=== PATIENT | female | born 1945 | race Caucasian/White ===

== ENCOUNTER → 2016-05-16 | Outpatient (CLI) | payer MEDICARE, OTHER ==
--- NOTE | 2016-05-16 16:16 | NM ---
EXAMINATION TYPE: NM parathyroid w/spect DATE OF EXAM: 05/16/2016 3:48 PM COMPARISON: CT chest August 26, 2013 HISTORY: Primary hyperparathyroidism TECHNIQUE: Following administration of 24.4 mCi Tc99m Sestamibi. Anterior projection images of the neck and ches t were obtained 15 minutes delayed images obtained post injection. SPECT images of the neck and ches t were obtained and reconstructed in three axes. FINDINGS: Thyroid tracer washout: There is decreased trapping of the radiopharmaceutical, delayed images show s ome questionable trapping towards the upper pole level of the right lobe of the gland. IMPRESSION: There may be underlying thyroiditis, thyroid atrophy, findings felt to be equivocal but unlikely to r epresent parathyroid adenoma
== END | disposition home or self-care (01) ==
LOC: RADNMMAIN 11:15
PROVIDERS: ATTEND Internal Medicine Endocrinology, Diabetes & Metabolism
DX: E21.0 Primary hyperparathyroidism (principal)
CPT/HCPCS: 78071; A9500

== ENCOUNTER → 2016-06-27 | Outpatient (CLI) | payer MEDICARE, OTHER ==
--- NOTE | 2016-06-27 11:15 | US ---
EXAMINATION TYPE: US kidneys/renal and bladder DATE OF EXAM: 06/27/2016 10:18 AM COMPARISON: CT and MRI on PACS CLINICAL HISTORY: E21.3 Hyperparathyroidsm. Small kidneys reported on CT here EXAM MEASUREMENTS: Right Kidney: 5.6 x 3.4 x 2.4 cm Left Kidney: 8.3 x 5.2 x 4.5 cm Post Void Residual Volume: 0 TECHNOLOGIST IMPRESSION: wnl Right Kidney: smaller than left kidney Left Kidney: small cortical cyst mid pole = 0.6 x 0.7 x 0.5cm Bladder: minimal mobile echogenic internal contents were noted which suggests debris Bilateral Jets seen: yes Normal Post Void Residual: yes as bladder fully emptied IMPRESSION: 1. Probable atrophy of the right kidney. 2. Simple appearing, 7 mm left renal cyst. 3. Some sludge within the bladder.
== END | disposition home or self-care (01) ==
LOC: RADUSWWP 09:13
PROVIDERS: ATTEND Internal Medicine Endocrinology, Diabetes & Metabolism
DX: E21.3 Hyperparathyroidism, unspecified (principal); N28.1 Cyst of kidney, acquired
CPT/HCPCS: 76770

== ENCOUNTER 2016-09-30 22:17 | Emergency (ER) | payer MEDICARE, OTHER ==
[2016-09-30 22:28] VITALS: BP 120/62; PULSE 90; RESP 18
[2016-09-30] MEDS ORDERED: diphenhydrAMINE 2% CREAM 28.4 GM TUBE TOPICAL STA (22:49)
[2016-09-30] MEDS ORDERED: TOPICAL SKIN ADHESIVE 1 EACH AMP TOPICAL ONE (22:51)
--- NOTE | 2016-09-30 22:52 | ED ---
Upper Extremity HPI - General Chief Complaint: Extremity Injury, Upper Stated Complaint: finger swelling/pain & scraped arm Time Seen by Provider: 09/30/16 22:37 Source: patient, RN notes reviewed Mode of arrival: ambulatory Limitations: no limitations - History of Present Illness Initial Comments: This is a 71 year old female with CC of left middle finger pain and a skin tear on right wrist. Patient reports she was working outside in her [employer]'s garden and got the abrasion and thinks there is a splinter in her finger. Patient reports her finger feels like it is on fire. Patient denies any fevers, chills, decreased range of motion of extremities, redness, swelling, or other injury. - Related Data Home Medications Medication Instructions Recorded Confirmed DULoxetine HCL [Cymbalta] 60 mg PO DAILY 09/17/13 09/30/16 Potassium Chloride ER [K-Dur 20] 40 meq PO BID 04/07/14 09/30/16 Ergocalciferol [Vitamin D2 50,000 unit PO QMONTH 09/05/14 09/30/16 (DRISDOL)] fentaNYL 100MCG/HR PATCH 1 patch TRANSDERM Q72H 04/10/15 09/30/16 [Duragesic 100Mcg/Hr Patch] Alendronate Sodium [Fosamax] 35 mg PO DAILY 11/06/15 09/30/16 Cyanocobalamin [Vitamin B-12 1,000 mcg SQ [id number] 11/06/15 09/30/16 Injection] Ferrous Sulfate [Feosol] 650 mg PO DAILY 11/06/15 09/30/16 Fluticasone Nasal [place] [Flonase 1 spr EA NOSTRIL BID 11/06/15 09/30/16 Nasal [place]] Furosemide [Lasix] 20 mg PO DAILY 11/06/15 09/30/16 HYDROcodone/APAP 5-325MG [[place] 1 tab PO TID PRN 11/06/15 09/30/16 5-325] Ipratropium [place] 0.06%Nasal 2 spray NASAL BID 11/06/15 09/30/16 [Atrovent Nasal] Levothyroxine Sodium [Synthroid] 100 mcg PO DAILY 11/06/15 09/30/16 Metolazone [Zaroxolyn] 2.5 mg PO DAILY 11/06/15 09/30/16 Mirtazapine [Remeron] 90 mg PO HS 11/06/15 09/30/16 Montelukast [Singulair] 10 mg PO DAILY 11/06/15 09/30/16 Multivitamins, Thera [Multivitamin 1 tab PO DAILY@1200 11/06/15 09/30/16 (formulary)] Polyethylene Glycol 3350 [Miralax] 17 gm PO DAILY PRN 11/06/15 09/30/16 SUMAtriptan SUCCINATE [Imitrex] 50 mg PO ONCE PRN 11/06/15 09/30/16 buPROPion HCL [Wellbutrin XL] 300 mg PO DAILY 11/06/15 09/30/16 busPIRone HCL 30 mg PO BID 11/06/15 09/30/16 cloNIDine 0.2 MG/24HR PATCH 1 patch TRANSDERM Q7D 09/30/16 09/30/16 [Catapres-TTS] Previous Rx's Medication Instructions Recorded Omeprazole [PriLOSEC] 20 mg PO AC-BRKFST #30 capsule. 03/17/14 Folic Acid 1 mg PO DAILY@1200 #1 tablet 04/18/14 Thiamine [Vitamin B-1] 100 mg PO DAILY@1200 #1 tablet 04/18/14 Allergies Allergy/AdvReac Type Severity Reaction Status Date / Time poliomyelitis vaccine, live Allergy Unknown Verified 09/30/16 22:54 oral Childhood [poliomyelitis vaccine,live] DUST Allergy Itching Uncoded 09/30/16 22:28 MOLDS Allergy Itching Uncoded 09/30/16 22:28 Review of Systems ROS Statement: Those systems with pertinent positive or pertinent negative responses have been documented in the HPI. ROS Other: All systems not noted in ROS Statement are negative. 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 USES CANE WHEN UP IN APT STATED FELL YESTERDAY ON KNEES(HAS SOME BRUISING NOTED). PT IS RETIRED ON [employer]. PT IS ABLE TO DRIVE A CAR. 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 Smoking Status: Never smoker Past Alcohol Use History: None Reported Past Drug Use History: None Reported - Past Family History Father Family Medical History: Cancer, Coronary Artery Disease (CAD) Additional Family Medical History / Comment(s): FATHER HAD BLADDER AND KIDNEY CANCER. FATHER HAD TB WHEN HE WAS A CHILD .FATHER AT AGE 87. Mother Family Medical History: Cancer Additional Family Medical History / Comment(s): MOTHER AT AGE 58 OF OVARIAN CANCER. General Exam - General Exam Comments Initial Comments: Well appearing 71 year old female. Limitations: no limitations General appearance: alert, in no apparent distress Head exam: Present: atraumatic, normocephalic, normal inspection Eye exam: Present: normal appearance, PERRL, EOMI. Absent: scleral icterus, conjunctival injection, periorbital swelling ENT exam: Present: normal exam, mucous membranes moist Neck exam: Present: normal inspection. Absent: tenderness, meningismus, lymphadenopathy Respiratory exam: Present: normal lung sounds bilaterally. Absent: respiratory distress, wheezes, rales, rhonchi, stridor Cardiovascular Exam: Present: regular rate, normal rhythm, normal heart sounds. Absent: systolic murmur, diastolic murmur, rubs, gallop, clicks GI/Abdominal exam: Present: soft, normal bowel sounds. Absent: distended, tenderness, guarding, rebound, rigid Extremities exam: Present: normal inspection, full ROM, normal capillary refill. Absent: tenderness, pedal edema, joint swelling, calf tenderness Back exam: Present: normal inspection Neurological exam: Present: alert, oriented X3, CN II-XII intact Psychiatric exam: Present: normal affect, normal mood Skin exam: Present: warm, dry, intact, normal color, other (2cm skin tear on right wrist. ). Absent: rash Course Vital Signs 09/30/16 22:25 Pulse Rate 90 Respiratory 18 Rate Blood Pressure 120/62 O2 Sat by Pulse 98 Oximetry Medical Decision Making - Medical Decision Making This is a 71 year old female with CC of left middle finger pain and a skin tear on right wrist. Patient reports she was working outside in her anabaptism's [employer] and got the abrasion and thinks there is a splinter in her finger. Patient reports her finger feels like it is on fire. Patient denies any fevers, chills, decreased range of motion of extremities, redness, swelling, or other injury. Patient skin tear was irrigated and closed with skin adhesive. PAtient finger has no laceration, redness, or swelling. Patient will be given benadryl cream over the finger. REturn parameters dsicussed. Disposition Clinical Impression: Tear of skin of right wrist, Splinter of finger without major open wound or infection Disposition: HOME SELF-CARE Condition: Good Instructions: Skin Adhesive Care (ED) Additional Instructions: Patient advised to take Motrin Tylenol for pain. Apply the Benadryl cream over the distal tip of the finger. advised to soak the finger ice. Monitor for any signs of infection including redness swelling and drainage. Patient needs to keep the skin tear clean. Monitor for any sign of infection and that as well. Referrals: Ale Eli MD [Primary Care Provider] - 1-2 days Time of Disposition: 22:50
--- NOTE | 2016-10-02 07:13 | CDI ---
Documentation Clarification OP Dear MAO Joyce: Please do addendum to ED report for HPI and physical exam. Thank you, Beckie Noonan Cloth Shearer If you have any question, Please contact coding coordinator at [phone] [facility]
== END 2016-09-30 23:09 | disposition home or self-care (01) ==
LOC: EC 22:17
DX: S61.511A Laceration without foreign body of right wrist, initial encounter (principal); S60.453A Superficial foreign body of left middle finger, initial encounter; J45.909 Unspecified asthma, uncomplicated; M19.90 Unspecified osteoarthritis, unspecified site; F41.0 Panic disorder [episodic paroxysmal anxiety]; F32.9 Major depressive disorder, single episode, unspecified; Z79.899 Other long term (current) drug therapy; Z88.7 Allergy status to serum and vaccine; Z91.048 Other nonmedicinal substance allergy status; X58.XXXA Exposure to other specified factors, initial encounter; Y92.89 Other specified places as the place of occurrence of the external cause
CPT/HCPCS: 12001; 99282

== ENCOUNTER 2017-05-31 08:58 | Emergency (ER) | payer MEDICARE, OTHER ==
--- NOTE | 2017-05-31 09:16 | ED ---
General Adult HPI - General Chief complaint: Recheck/Abnormal Lab/Rx Stated complaint: Leg Pain/Vomiting/Diarrhea Time Seen by Provider: 05/31/17 09:00 Source: patient, EMS Mode of arrival: EMS Limitations: no limitations - History of Present Illness Initial comments: This is a 72-year-old female who presents to the ED by EMS with withdrawal symptoms from [place] and Fentanyl patches. She is under the care of Dr. Eli and forgot to call for her refill before the weekend. The patient apologizes several times for coming to the ED, but she states she did not know how to handle her nausea, vomiting and diarrhea symptoms to get through the rest of the weekend. She demonstrates a history of compliance under Dr. Eli's care. - Related Data Home Medications Medication Instructions Recorded Confirmed DULoxetine HCL [Cymbalta] 60 mg PO DAILY 09/17/13 09/30/16 Potassium Chloride ER [K-Dur 20] 40 meq PO BID 04/07/14 09/30/16 Ergocalciferol [Vitamin D2 50,000 unit PO QMONTH 09/05/14 09/30/16 (DRISDOL)] fentaNYL 100MCG/HR PATCH 1 patch TRANSDERM Q72H 04/10/15 05/31/17 [Duragesic 100Mcg/Hr Patch] Alendronate Sodium [Fosamax] 35 mg PO DAILY 11/06/15 09/30/16 Cyanocobalamin [Vitamin B-12 1,000 mcg SQ [id number] 11/06/15 09/30/16 Injection] Ferrous Sulfate [Feosol] 650 mg PO DAILY 11/06/15 09/30/16 Fluticasone Nasal [place] [Flonase 1 spr EA NOSTRIL BID 11/06/15 09/30/16 Nasal [place]] Furosemide [Lasix] 20 mg PO DAILY 11/06/15 09/30/16 HYDROcodone/APAP 5-325MG [[place] 1 tab PO TID PRN 11/06/15 05/31/17 5-325] Ipratropium [place] 0.06%Nasal 2 spray NASAL BID 11/06/15 09/30/16 [Atrovent Nasal] Levothyroxine Sodium [Synthroid] 100 mcg PO DAILY 11/06/15 05/31/17 Metolazone [Zaroxolyn] 2.5 mg PO DAILY 11/06/15 09/30/16 Multivitamins, Thera [Multivitamin 1 tab PO DAILY@1200 11/06/15 09/30/16 (formulary)] Polyethylene Glycol 3350 [Miralax] 17 gm PO DAILY PRN 11/06/15 09/30/16 SUMAtriptan SUCCINATE [Imitrex] 50 mg PO ONCE PRN 11/06/15 09/30/16 buPROPion HCL [Wellbutrin XL] 300 mg PO DAILY 11/06/15 05/31/17 busPIRone HCL 30 mg PO BID 11/06/15 09/30/16 cloNIDine 0.2 MG/24HR PATCH 1 patch TRANSDERM Q7D 09/30/16 09/30/16 [Catapres-TTS] Albuterol Inhaler [Ventolin Hfa 1 - 2 puff INHALATION RT-Q6H PRN 05/31/17 Inhaler] Levocetirizine Dihydrochloride 5 mg PO HS 05/31/17 05/31/17 [Xyzal] Mirtazapine [Remeron ODT] 60 mg PO HS 05/31/17 05/31/17 Montelukast [Singulair] 10 mg PO DAILY 05/31/17 05/31/17 Previous Rx's Medication Instructions Recorded Omeprazole [PriLOSEC] 20 mg PO AC-BRKFST #30 capsule. 03/17/14 Folic Acid 1 mg PO DAILY@1200 #1 tablet 04/18/14 Thiamine [Vitamin B-1] 100 mg PO DAILY@1200 #1 tablet 04/18/14 Allergies Allergy/AdvReac Type Severity Reaction Status Date / Time poliomyelitis vaccine, live Allergy Unknown Verified 05/31/17 09:00 oral Childhood [poliomyelitis vaccine,live] DUST Allergy Itching Uncoded 05/31/17 09:00 MOLDS Allergy Itching Uncoded 05/31/17 09:00 Review of Systems ROS Statement: Those systems with pertinent positive or pertinent negative responses have been documented in the HPI. ROS Other: All systems not noted in ROS Statement are negative. 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 FATHER HAD TB WHEN HE WAS A CHILD .FATHER AT AGE 87. Mother Family Medical History: Cancer Additional Family Medical History / Comment(s): MOTHER AT AGE 58 OF OVARIAN CANCER. General Exam Limitations: no limitations General appearance: alert, anxious Head exam: Present: atraumatic, normocephalic, normal inspection Cardiovascular Exam: Present: tachycardia GI/Abdominal exam: Present: soft, normal bowel sounds. Absent: distended, tenderness, guarding, rebound, rigid Neurological exam: Present: alert, oriented X3, CN II-XII intact Psychiatric exam: Present: normal affect, normal mood, anxious Skin exam: Present: warm, dry, intact, normal color. Absent: rash Course Vital Signs 05/31/17 09:00 Temperature 97.1 F L Pulse Rate 114 H Respiratory 16 Rate Blood Pressure 141/79 O2 Sat by Pulse 99 Oximetry Medical Decision Making - Medical Decision Making This 72-year-old patient came in with opiate withdrawal symptoms. She was given zofran for her nausea. The patient was diagnosed clinically with opiate dependence. She was given the medications she was withdrawing from, Fentanyl and [place]. She was instructed to call Dr. Eli tomorrow and continue follow- up care with her. I did perform a maps on the patient which showed that the patient does fill prescriptions every 9 days and has not abused medications Disposition Clinical Impression: Opiate dependence, Nausea & vomiting, Drug withdrawal Disposition: HOME SELF-CARE Condition: Stable Instructions: Opioid Withdrawal (ED) Additional Instructions: Please return to the Emergency Department if experiencing new or worsening symptoms. Referrals: Ale Eli MD [Primary Care Provider] - 1-2 days Time of Disposition: 09:44
[2017-05-31] MEDS ORDERED: ONDANSETRON 4 MG/2 ML VIAL IVP STA (09:17)
[2017-05-31] MEDS ORDERED: MORPHINE SULFATE 4 MG/ML SYRINGE IVP STA (09:17)
[2017-05-31] MEDS ORDERED: ONDANSETRON 4 MG ODT STARTER PACK 2 TAB BTL PO STA (09:18)
[2017-05-31] MEDS ORDERED: HYDROcodone/APAP 5-325MG 1 EACH TAB PO STA (09:18)
[2017-05-31 10:16] VITALS: BP 116/70; PULSE 64; RESP 15; TEMP 97.7
== END 2017-05-31 10:19 | disposition home or self-care (01) ==
LOC: EC 08:58
DX: R11.2 Nausea with vomiting, unspecified (principal); F11.23 Opioid dependence with withdrawal; J45.909 Unspecified asthma, uncomplicated; G43.909 Migraine, unspecified, not intractable, without status migrainosus; F32.9 Major depressive disorder, single episode, unspecified; F41.0 Panic disorder [episodic paroxysmal anxiety]; Z86.73 Personal history of transient ischemic attack (TIA), and cerebral infarction without residual deficits; Z79.51 Long term (current) use of inhaled steroids; Z79.899 Other long term (current) drug therapy; Z88.7 Allergy status to serum and vaccine; Z91.09 Other allergy status, other than to drugs and biological substances
CPT/HCPCS: 99284; 96374; 96375; J2270; J2405; S0119

== ENCOUNTER 2017-12-07 16:17 | Emergency (ER) | payer MEDICARE, OTHER ==
[2017-12-07 17:08] VITALS: RESP 18
[2017-12-07 17:52] LABS: Appearance,Urine Clear (Clear); Bacteria,Urine Many /hpf; Bilirubin,Urine Negative (Negative); Blood,Urine Negative (Negative); Color,Urine Yellow; Glucose,Urine (UA) Negative (Negative); Ketones,Urine Negative (Negative); Leukocyte Esterase,Urine Large (Negative); Nitrite,Urine Negative (Negative); Protein,Urine Trace (Negative); RBC,Urine 6 /hpf (0-5); Specific Gravity,Urine 1.013 (1.001-1.035); Squamous Epithelial Cell,Urine <1 /hpf (0-4); Urobilinogen,Urine <2.0 mg/dL (<2.0)
[2017-12-07] MEDS ORDERED: ACETAMINOPHEN TAB 325 MG TAB PO STA (20:36)
[2017-12-07] MEDS ORDERED: ONDANSETRON ODT 4 MG TAB PO STA (20:36)
[2017-12-07] MEDS ORDERED: SULFAMETHOX-TMP 800-160MG 1 EACH TAB PO STA (20:36)
--- NOTE | 2017-12-07 20:44 | ED ---
General Adult HPI - General Chief complaint: Urogenital Stated complaint: UTI Time Seen by Provider: 12/07/17 20:28 Source: patient, RN notes reviewed Mode of arrival: ambulatory Limitations: no limitations - History of Present Illness Initial comments: Patient is a pleasant 72-year-old female presenting to the emergency department with complaints of dysuria. Symptoms have been present 2-3 days. Patient has had some chills and nausea. Patient has dysuria and urinary frequency. Patient has had some generalized achiness. No abdominal pain. No vomiting. Patient has had similar symptoms years ago associated with urinary tract infection. - Related Data Home Medications Medication Instructions Recorded Confirmed DULoxetine HCL [Cymbalta] 60 mg PO DAILY 09/17/13 12/07/17 Potassium Chloride ER [K-Dur 20] 40 meq PO BID 04/07/14 12/07/17 Ergocalciferol [Vitamin D2 50,000 unit PO QMONTH 09/05/14 12/07/17 (DRISDOL)] fentaNYL 100MCG/HR PATCH 1 patch TRANSDERM Q72H 04/10/15 12/07/17 [Duragesic 100Mcg/Hr Patch] Alendronate Sodium [Fosamax] 35 mg PO DAILY 11/06/15 12/07/17 Cyanocobalamin [Vitamin B-12 1,000 mcg SQ [id number] 11/06/15 12/07/17 Injection] Ferrous Sulfate [Feosol] 650 mg PO DAILY 11/06/15 12/07/17 Fluticasone Nasal [place] [Flonase 1 spr EA NOSTRIL BID 11/06/15 12/07/17 Nasal [place]] Furosemide [Lasix] 20 mg PO DAILY 11/06/15 12/07/17 HYDROcodone/APAP 5-325MG [[place] 1 tab PO TID PRN 11/06/15 12/07/17 5-325] Ipratropium [place] 0.06%Nasal 2 spray NASAL BID 11/06/15 12/07/17 [Atrovent Nasal] Levothyroxine Sodium [Synthroid] 100 mcg PO DAILY 11/06/15 12/07/17 Metolazone [Zaroxolyn] 2.5 mg PO DAILY 11/06/15 12/07/17 Multivitamins, Thera [Multivitamin 1 tab PO DAILY@1200 11/06/15 12/07/17 (formulary)] Polyethylene Glycol 3350 [Miralax] 17 gm PO DAILY PRN 11/06/15 12/07/17 SUMAtriptan SUCCINATE [Imitrex] 50 mg PO DAILY PRN 11/06/15 12/07/17 buPROPion HCL [Wellbutrin XL] 300 mg PO DAILY 11/06/15 12/07/17 busPIRone HCL 30 mg PO BID 11/06/15 12/07/17 cloNIDine 0.2 MG/24HR PATCH 1 patch TRANSDERM Q7D 09/30/16 12/07/17 [Catapres-TTS] Albuterol Inhaler [Ventolin Hfa 1 - 2 puff INHALATION RT-Q6H PRN 05/31/17 Inhaler] Levocetirizine Dihydrochloride 5 mg PO HS 05/31/17 12/07/17 [Xyzal] Mirtazapine [Remeron ODT] 60 mg PO HS 05/31/17 12/07/17 Montelukast [Singulair] 10 mg PO DAILY 05/31/17 12/07/17 Previous Rx's Medication Instructions Recorded Omeprazole [PriLOSEC] 20 mg PO AC-BRKFST #30 capsule. 03/17/14 Folic Acid 1 mg PO DAILY@1200 #1 tablet 04/18/14 Thiamine [Vitamin B-1] 100 mg PO DAILY@1200 #1 tablet 04/18/14 Sulfamethox-Tmp 800-160Mg [Bactrim 1 each PO Q12HR #20 tab 12/07/17 DS 800-160 mg] Allergies Allergy/AdvReac Type Severity Reaction Status Date / Time poliomyelitis vaccine, live Allergy Unknown Verified 12/07/17 20:29 oral Childhood [poliomyelitis vaccine,live] DUST Allergy Itching Uncoded 05/31/17 09:00 MOLDS Allergy Itching Uncoded 05/31/17 09:00 Review of Systems ROS Statement: Those systems with pertinent positive or pertinent negative responses have been documented in the HPI. ROS Other: All systems not noted in ROS Statement are negative. Constitutional: Reports: chills. Denies: fever Eyes: Denies: eye pain ENT: Denies: ear pain Respiratory: Denies: cough Cardiovascular: Denies: chest pain Endocrine: Denies: fatigue Gastrointestinal: Reports: nausea. Denies: abdominal pain, vomiting Genitourinary: Reports: urgency, dysuria, frequency Musculoskeletal: Denies: back pain Skin: Denies: rash Neurological: Denies: headache Past Medical History Past Medical History: Asthma, Deep Vein Thrombosis (DVT), GERD/Reflux Additional Past Medical History / Comment(s): OA IN NECK,BACK AND BILATERAL ARMS.stomach ulcers, edema,low calcium; migraine headaches, pancreatitis, constipation,tia,spinal stenosis(had sx ) History of Any Multi-Drug Resistant Organisms: None Reported Past Surgical History: Back Surgery, Bowel Resection Additional Past Surgical History / Comment(s): LOWER BACK SURGERY lamenectomy/ discetomy then had a revison of that sx. 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 FATHER HAD TB WHEN HE WAS A CHILD .FATHER AT AGE 87. Mother Family Medical History: Cancer Additional Family Medical History / Comment(s): MOTHER AT AGE 58 OF OVARIAN CANCER. General Exam Limitations: no limitations General appearance: alert, in no apparent distress Head exam: Present: atraumatic Eye exam: Present: normal appearance Neck exam: Present: normal inspection Respiratory exam: Present: normal lung sounds bilaterally Cardiovascular Exam: Present: regular rate, normal rhythm GI/Abdominal exam: Present: soft. Absent: distended, tenderness, guarding, rebound, rigid Extremities exam: Present: normal inspection Neurological exam: Present: alert Psychiatric exam: Present: normal affect, normal mood Skin exam: Present: normal color Course Vital Signs 12/07/17 17:07 Temperature 98.2 F Pulse Rate 93 Respiratory 18 Rate Blood Pressure 135/75 O2 Sat by Pulse 99 Oximetry Medical Decision Making - Medical Decision Making Patient offered further evaluation with blood work however refuses. Patient is comfortable with oral antibiotics and discharged. Patient is receptive to receiving a dose of Tylenol and antiemetic. - Lab Data Lab Results 12/07/17 Range/Units 17:06 Urine Color Yellow Urine Appearance Clear (Clear) Urine pH 6.0 (5.0-8.0) Ur Specific Upper Tract 1.013 (1.001-1.035) Urine Protein Trace H (Negative) Urine Glucose (UA) Negative (Negative) Urine Ketones Negative (Negative) Urine Blood Negative (Negative) Urine Nitrite Negative (Negative) Urine Bilirubin Negative (Negative) Urine Urobilinogen <2.0 (<2.0) mg/dL Ur Leukocyte Esterase Large H (Negative) Urine RBC 6 H (0-5) /hpf Urine WBC 122 H (0-5) /hpf Ur Squamous Epith Cells <1 (0-4) /hpf Urine Bacteria Many H (None) /hpf Disposition Clinical Impression: Urinary tract infection Disposition: HOME SELF-CARE Condition: Stable Instructions: Urinary Tract Infection in Women (ED) Additional Instructions: Please follow-up with primary care physician in the next couple days for recheck. Tylenol as needed for aches or fevers. Return for pain, fevers, not tolerating oral intake, worsening symptoms or other concerns. Prescriptions: Sulfamethox-Tmp 800-160Mg [Bactrim DS 800-160 mg] 1 each PO Q12HR #20 tab Is patient prescribed a controlled substance at d/c from ED?: No Referrals: Ale Eli MD [Primary Care Provider] - 1-2 days Time of Disposition: 20:44
[2017-12-07 20:54] VITALS: BP 153/79; PULSE 86; TEMP 98.3
== END 2017-12-07 20:54 | disposition home or self-care (01) ==
LOC: EC 16:17
DX: N39.0 Urinary tract infection, site not specified (principal); J45.909 Unspecified asthma, uncomplicated; K21.9 Gastro-esophageal reflux disease without esophagitis; F32.9 Major depressive disorder, single episode, unspecified; F41.0 Panic disorder [episodic paroxysmal anxiety]; Z86.718 Personal history of other venous thrombosis and embolism; Z79.51 Long term (current) use of inhaled steroids; Z79.891 Long term (current) use of opiate analgesic; Z79.899 Other long term (current) drug therapy; Z88.7 Allergy status to serum and vaccine; Z91.048 Other nonmedicinal substance allergy status
CPT/HCPCS: 81001; 87086; 99283

== ENCOUNTER 2019-04-01 12:27 | Inpatient (IN) | payer MEDICARE, OTHER ==
--- NOTE | 2019-04-01 13:22 | ED ---
SOB HPI - General Chief Complaint: Shortness of Breath Stated Complaint: Congested, Cough, SOB Time Seen by Provider: 04/01/19 12:56 Source: patient Mode of arrival: ambulatory Limitations: no limitations - History of Present Illness Initial Comments: patient is 74-year-old female with history of CKD and asthma is presenting to emergency Department with chief complaint of shortness of breath and cough. Patient reports initially she developed upper respiratory symptoms about 5 days ago and aren't his. She also had a nonproductive cough. Patient also reports that she started to have some dyspnea on exertion and now it is dyspnea at rest. Patient reports pleuritic right-sided chest pain. She reports the pain is exacerbated with full inspiration status is not heart pain were more related to the coughing. Patient denies any radiation of the pain. She denies any diaphoretic episodes, lightheadedness or dizziness. Denies night sweats fevers or chills.she reports a runny nose and occasional sore throat but denies otalgia.patient denies COPD or smoking. She does use albuterol 3 times a day. Patient is currently on Lasix. - Related Data Home Medications Medication Instructions Recorded Confirmed DULoxetine HCL [Cymbalta] 60 mg PO DAILY 09/17/13 12/07/17 Potassium Chloride ER [K-Dur 20] 40 meq PO BID 04/07/14 12/07/17 Ergocalciferol [Vitamin D2 50,000 unit PO QMONTH 09/05/14 12/07/17 (DRISDOL)] fentaNYL 100MCG/HR PATCH 1 patch TRANSDERM Q72H 04/10/15 12/07/17 [Duragesic 100Mcg/Hr Patch] Alendronate Sodium [Fosamax] 35 mg PO DAILY 11/06/15 12/07/17 Cyanocobalamin [Vitamin B-12 1,000 mcg SQ S24QVOT 11/06/15 12/07/17 Injection] Ferrous Sulfate [Feosol] 650 mg PO DAILY 11/06/15 12/07/17 Fluticasone Nasal [place] [Flonase 1 spr EA NOSTRIL BID 11/06/15 12/07/17 Nasal [place]] Furosemide [Lasix] 20 mg PO DAILY 11/06/15 12/07/17 HYDROcodone/APAP 5-325MG [[place] 1 tab PO TID PRN 11/06/15 12/07/17 5-325] Ipratropium [place] 0.06%Nasal 2 spray NASAL BID 11/06/15 12/07/17 [Atrovent Nasal] Levothyroxine Sodium [Synthroid] 100 mcg PO DAILY 11/06/15 12/07/17 Metolazone [Zaroxolyn] 2.5 mg PO DAILY 11/06/15 12/07/17 Multivitamins, Thera [Multivitamin 1 tab PO DAILY@1200 11/06/15 12/07/17 (formulary)] Polyethylene Glycol 3350 [Miralax] 17 gm PO DAILY PRN 11/06/15 12/07/17 SUMAtriptan SUCCINATE [Imitrex] 50 mg PO DAILY PRN 11/06/15 12/07/17 buPROPion HCL [Wellbutrin XL] 300 mg PO DAILY 11/06/15 12/07/17 busPIRone HCL 30 mg PO BID 11/06/15 12/07/17 cloNIDine 0.2 MG/24HR PATCH 1 patch TRANSDERM Q7D 09/30/16 12/07/17 [Catapres-TTS] Albuterol Inhaler [Ventolin Hfa 1 - 2 puff INHALATION RT-Q6H PRN 05/31/17 12/07/17 Inhaler] Levocetirizine Dihydrochloride 5 mg PO HS 05/31/17 12/07/17 [Xyzal] Mirtazapine [Remeron ODT] 60 mg PO HS 05/31/17 12/07/17 Montelukast [Singulair] 10 mg PO DAILY 05/31/17 12/07/17 Previous Rx's Medication Instructions Recorded Omeprazole [PriLOSEC] 20 mg PO AC-BRKFST #30 capsule. 03/17/14 Folic Acid 1 mg PO DAILY@1200 #1 tablet 04/18/14 Thiamine [Vitamin B-1] 100 mg PO DAILY@1200 #1 tablet 04/18/14 Sulfamethox-Tmp 800-160Mg [Bactrim 1 each PO Q12HR #20 tab 12/07/17 DS 800-160 mg] Allergies Allergy/AdvReac Type Severity Reaction Status Date / Time poliomyelitis vaccine, live Allergy Unknown Verified 12/07/17 20:29 oral Childhood [poliomyelitis vaccine,live] DUST Allergy Itching Uncoded 05/31/17 09:00 MOLDS Allergy Itching Uncoded 05/31/17 09:00 Review of Systems ROS Statement: Those systems with pertinent positive or pertinent negative responses have been documented in the HPI. ROS Other: All systems not noted in ROS Statement are negative. 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 FATHER HAD TB WHEN HE WAS A CHILD .FATHER AT AGE 87. Mother Family Medical History: Cancer Additional Family Medical History / Comment(s): MOTHER AT AGE 58 OF OVARIAN CANCER. General Exam Limitations: no limitations General appearance: alert, in no apparent distress Head exam: Present: atraumatic, normocephalic, normal inspection Eye exam: Present: normal appearance Pupils: Present: normal accommodation ENT exam: Present: normal exam, normal oropharynx, mucous membranes moist, TM's normal bilaterally, normal external ear exam Neck exam: Present: normal inspection, full ROM Respiratory exam: Present: wheezes (mild wheezing bilaterally), chest wall tenderness (right lower chest) Cardiovascular Exam: Present: normal rhythm, tachycardia, normal heart sounds Extremities exam: Present: normal inspection, full ROM Back exam: Present: normal inspection, full ROM Neurological exam: Present: alert, oriented X3 Psychiatric exam: Present: normal affect, normal mood Skin exam: Present: warm, dry, intact, normal color Course Vital Signs 04/01/19 04/01/19 04/01/19 12:47 12:48 13:00 Temperature 98.5 F Pulse Rate 128 H 118 H Respiratory 26 H 20 Rate Blood Pressure 163/104 147/89 O2 Sat by Pulse 97 96 99 Oximetry 04/01/19 04/01/19 04/01/19 14:15 14:24 14:37 Temperature Pulse Rate 112 H 116 H 120 H Respiratory Rate Blood Pressure 143/87 O2 Sat by Pulse 99 Oximetry Medical Decision Making - Medical Decision Making patient is a 74-year-old female with history of chronic kidney disease and asthma presenting to the emergency Department with a chief complaint of shortness of breath. patient initially began with an upper respiratory infection about 5 days ago and is gradually developed a nonproductive cough. She reports some lower right-sided chest pain that is pleuritic in nature. Patient denies n ight sweats fevers or chills. She does report some shortness of breath which initially started as dyspnea on exertion and is now at rest. EKG shows sinus tachycardia with no ST changes. It resembles most recent EKG. Chest x-ray shows right lower lobe pneumonia. this can be clinically correlated to the patient's lower right-sided chest pain. CBC has a white count of 15.4k. Patient has poor renal Function although this is her baseline. patient is given a DuoNeb treatment. Patient is on 2 L of oxygen. patient does report some improvement in symptoms although dyspnea still somewhat persistent.initial troponin is negative. D-dimer negative. Patient has bilateral lower extremity edema alth ough that is her baseline. Patient does take Lasix. Considering the patient's comorbidities, she will be admitted for further medical management. patient given a single dose of Rocephin. Case discussed with physician. Admitting physician is Dr. Desir. - Lab Data Result diagrams: 04/01/19 13:05 04/01/19 13:05 Lab Results 04/01/19 04/01/19 04/01/19 Range/Units 13:05 13:05 13:05 WBC 15.4 H (3.8-10.6) k/uL RBC 3.93 (3.80-5.40) m/uL Hgb 11.9 (11.4-16.0) gm/dL Hct 37.8 (34.0-46.0) % MCV 96.3 (80.0-100.0) fL MCH 30.4 (25.0-35.0) pg MCHC 31.5 (31.0-37.0) g/dL RDW 14.4 (11.5-15.5) % Plt Count 421 (150-450) k/uL Neutrophils % 82 % Lymphocytes % 10 % Monocytes % 5 % Eosinophils % 2 % Basophils % 0 % Neutrophils # 12.7 H (1.3-7.7) k/uL Lymphocytes # 1.5 (1.0-4.8) k/uL Monocytes # 0.8 (0-1.0) k/uL Eosinophils # 0.3 (0-0.7) k/uL Basophils # 0.0 (0-0.2) k/uL Sodium 141 (137-145) mmol/L Potassium 3.1 L (3.5-5.1) mmol/L Chloride 106 (98-107) mmol/L Carbon Dioxide 24 (22-30) mmol/L Anion Gap 11 mmol/L BUN 45 H (7-17) mg/dL Creatinine 1.75 H (0.52-1.04) mg/dL Est GFR (CKD-EPI)AfAm 33 (>60 ml/min/1.73 sqM) Est GFR (CKD-EPI)NonAf 29 (>60 ml/min/1.73 sqM) Glucose 80 (74-99) mg/dL Calcium 8.8 (8.4-10.2) mg/dL Total Bilirubin 0.6 (0.2-1.3) mg/dL AST 18 (14-36) U/L ALT 12 (4-34) U/L Alkaline Phosphatase 149 H (38-126) U/L Troponin I <0.012 (0.000-0.034) ng/mL Total Protein 5.3 L (6.3-8.2) g/dL Albumin 3.1 L (3.5-5.0) g/dL Disposition Clinical Impression: Pneumonia, Shortness of breath Disposition: ADMITTED IP TO THIS [facility] Condition: Stable Instructions (If sedation given, give patient instructions): Dyspnea (ED) Additional Instructions: Patient will be admitted Is patient prescribed a controlled substance at d/c from ED?: No Referrals: Ale Eli MD [Primary Care Provider] - 1-2 days Time of Disposition: 14:49
--- NOTE | 2019-04-01 13:44 | XR ---
EXAMINATION TYPE: XR chest 2V DATE OF EXAM: 04/01/2019 COMPARISON: Prior chest x-ray 09/05/2014 HISTORY: Difficulty breathing, shortness of breath and wheezing TECHNIQUE: Frontal and lateral views of the chest are obtained. FINDINGS: The interstitium appears prominently, patchy bilateral airspace disease is noted. No evide nt pneumothorax or pleural effusion. Heart size is stable. Retrocardiac density is consistent with hi atal hernia. IMPRESSION: Correlate for congestive heart failure, pneumonia. Follow-up is recommended.
[2019-04-01 13:57] LABS: Basophils % (A) 0 %; Eosinophils # (A) 0.3 k/uL (0-0.7); Eosinophils % (A) 2 %; HCT 37.8 % (34.0-46.0); HGB 11.9 gm/dL (11.4-16.0); Lymphocytes # (A) 1.5 k/uL (1.0-4.8); Lymphocytes % (A) 10 %; MCH 30.4 pg (25.0-35.0); MCHC 31.5 g/dL (31.0-37.0); MCV 96.3 fL (80.0-100.0); Monocytes # (A) 0.8 k/uL (0-1.0); Monocytes % (A) 5 %; Neutrophils # (A) 12.7 k/uL (1.3-7.7); Neutrophils % (A) 82 %; Platelet Count 421 k/uL (150-450); RBC 3.93 m/uL (3.80-5.40); RDW 14.4 % (11.5-15.5); WBC 15.4 k/uL (3.8-10.6)
[2019-04-01 14:05] LABS: Albumin 3.1 g/dL (3.5-5.0); Calcium 8.8 mg/dL (8.4-10.2); Potassium 3.1 mmol/L (3.5-5.1); Total Bilirubin 0.6 mg/dL (0.2-1.3); Total Protein 5.3 g/dL (6.3-8.2)
[2019-04-01] MEDS ORDERED: IPRATROPIUM-ALBUTEROL 3 ML NEB INHALATION STA (14:18)
[2019-04-01 14:27] LABS: INR 0.8 (<1.2); Partial Thromboplastin Time 34.4 sec (22.0-30.0); Prothrombin Time 9.2 sec (9.0-12.0)
[2019-04-01] MEDS ORDERED: PNEUMONIA PROTOCOL UTILIZED 1 EACH MISC PO PRN (14:49)
[2019-04-01 14:54] LABS: D-Dimer 1.07 mg/L FEU (<0.60)
[2019-04-01] MEDS: ALBUTEROL NEBULIZED 2.5 MG/3 ML INHALATION SCH ×2 (15:25→19:47)
--- NOTE | 2019-04-01 16:21 | NM ---
EXAMINATION TYPE: NM pul vent and perfuse DATE OF EXAM: 04/01/2019 COMPARISON: Chest x-ray same date HISTORY: Chest pain, difficulty breathing, cough and wheezing, abnormal chest x-ray TECHNIQUE: Utilizing inhalation of 68.3 mCi Tc 99m DTPA aerosol and intravenous injection of 4.89 mC i of Tc 99m MAA, ventilation and perfusion images are acquired post injection in multiple projections . FINDINGS: Several subsegmental matching defects are present, no ventilation/perfusion mismatches. IMPRESSION: Indeterminate for pulmonary embolus.
[2019-04-01] MEDS ORDERED: ALBUTEROL INHALER 60 PUFF/8 GM INHALER INHALATION PRN (18:23)
[2019-04-01] MEDS ORDERED: POLYETHYLENE GLYCOL 3350 17 GM POWD.PACK PO PRN (18:23)
[2019-04-01] MEDS: HYDROcodone/APAP 5-325MG 1 EACH TAB PO PRN (18:40)
[2019-04-01] MEDS: HYDROmorphone 0.5 MG/0.5 ML SYRINGE IVP PRN ×2 (18:41→23:49)
[2019-04-01] MEDS ORDERED: ERGOCALCIFEROL 50,000 UNIT CAP PO SCH (19:00)
[2019-04-01] MEDS ORDERED: POTASSIUM CHLORIDE ER 20 MEQ TAB.ER PO STA (19:05)
[2019-04-01] MEDS: busPIRone HCl 10 MG TAB PO SCH (20:39)
[2019-04-01] MEDS: ENOXAPARIN 40 MG/0.4 ML SYRINGE SQ SCH (20:40)
[2019-04-01] MEDS: FLUTICASONE 50MCG/SPRAY NASAL 16GM EA NOSTRIL SCH (20:40)
[2019-04-01] MEDS: LORATADINE 10 MG TAB PO SCH (20:40)
[2019-04-01] MEDS ORDERED: ENOXAPARIN 40 MG/0.4 ML SYRINGE SQ SCH (21:00)
[2019-04-01] MEDS ORDERED: MIRTAZAPINE 15 MG TAB PO SCH (21:00)
[2019-04-02] MEDS: HYDROcodone/APAP 5-325MG 1 EACH TAB PO PRN ×3 (03:18→20:51)
[2019-04-02 05:19] LABS: Basophils % (A) 0 %; Eosinophils # (A) 0.3 k/uL (0-0.7); Eosinophils % (A) 2 %; HCT 34.9 % (34.0-46.0); HGB 11.1 gm/dL (11.4-16.0); Lymphocytes # (A) 1.6 k/uL (1.0-4.8); Lymphocytes % (A) 14 %; MCH 30.8 pg (25.0-35.0); MCHC 31.9 g/dL (31.0-37.0); MCV 96.8 fL (80.0-100.0); Mean Platelet Volume 6.9; Monocytes # (A) 0.8 k/uL (0-1.0); Monocytes % (A) 7 %; Neutrophils # (A) 8.8 k/uL (1.3-7.7); Neutrophils % (A) 76 %; Platelet Count 429 k/uL (150-450); RDW 14.5 % (11.5-15.5); WBC 11.7 k/uL (3.8-10.6)
[2019-04-02 05:37] LABS: Calcium 8.6 mg/dL (8.4-10.2)
--- NOTE | 2019-04-02 06:58 | XR ---
EXAMINATION TYPE: XR chest 2V DATE OF EXAM: 04/02/2019 HISTORY: pneumonia. REFERENCE: Previous study dated 04/01/2019. FINDINGS: The lungs are overinflated. The heart is not enlarged. There is bilateral patchy areas of a irspace disease. No definite pleural fluid is seen. IMPRESSION: 1. COPD. 2. PATCHY BILATERAL PNEUMONIAS.
[2019-04-02] MEDS: PANTOPRAZOLE 40 MG TABLET PO SCH (07:07)
[2019-04-02] MEDS: LEVOTHYROXINE 100 MCG TAB PO SCH (07:07)
[2019-04-02] MEDS: HYDROmorphone 0.5 MG/0.5 ML SYRINGE IVP PRN ×5 (07:07→22:58)
[2019-04-02] MEDS: IPRATROPIUM-ALBUTEROL 3 ML NEB INHALATION PRN ×2 (07:16→10:55)
[2019-04-02] MEDS: ALBUTEROL NEBULIZED 2.5 MG/3 ML INHALATION SCH ×4 (07:26→20:13)
[2019-04-02] MEDS: busPIRone HCl 10 MG TAB PO SCH ×2 (07:58→20:51)
[2019-04-02] MEDS: buPROPion XL 300 MG TAB.ER.24H PO SCH (07:59)
[2019-04-02] MEDS: FUROSEMIDE 20 MG TAB PO SCH (07:59)
[2019-04-02] MEDS: POTASSIUM CHLORIDE ER 10 MEQ TAB.ER.PRT PO SCH (07:59)
[2019-04-02] MEDS: FERROUS SULFATE 325 MG TAB PO SCH (07:59)
[2019-04-02] MEDS: DULoxetine HCL 60 MG CAPSULE.DR PO SCH (07:59)
[2019-04-02] MEDS: FLUTICASONE 50MCG/SPRAY NASAL 16GM EA NOSTRIL SCH ×2 (07:59→20:53)
[2019-04-02] MEDS: THIAMINE 100 MG TAB PO SCH (08:00)
[2019-04-02] MEDS: ENOXAPARIN 40 MG/0.4 ML SYRINGE SQ SCH (08:00)
[2019-04-02] MEDS: FOLIC ACID 1 MG TAB PO SCH (08:00)
[2019-04-02] MEDS ORDERED: METOLAZONE 2.5 MG TAB PO SCH (09:00)
--- NOTE | 2019-04-02 10:47 | P.CRDCN ---
History of Present Illness Consult date: 04/02/19 Requesting physician: Palmer Desir Chief complaint: chest pain History of present illness: this is a 74-year-old female with history of chronic kidney disease, asthma, pancreatitis, stomach ulcers for which she has undergone multiple surgeries in the past according to her, history of anxiety and depression, his tory of prior DVT. She presented to the hospital on this occasion with symptoms of cough, and chest pain related to coughing and deep breathing. She states that the symptoms started approximately 3 days ago prior to coming to the hospital. She denies any fevers, she does state that she's been having intermittent chills. Patient also states that she's lost approximately 20 pounds of weight in the past one month. She denies any prior cardiac history.chest x-ray on presentation here suggests correlation for congestive heart failure, pneumonia.EKG on presentation here shows sinus tachycardia with no acute changes.a lung perfusion scan was performed which showed several subsegmental matching defects with no ventilation or perfusion mismatches, indeterminate for pulmonary embolism.repeat chest x-ray showed COPD and patchy bilateral pneumonias.Blood pressure 146/80 with a heart rate of 115,afebrile,98% on room air.White blood cell count on admission 15.4, 11.7 this morning, hemoglobin 11.1, platelet count 429. D-dimer 1.07, sodium 139, potassium 3.1 on admission, 3.0 this morning. BUN 45 on admission creatinine 1.7, this morning 36 and 1.5. Plasma lactic acid 1.2. Phosphatase 149, troponins negative 3. BNP level 796.at the time of my examination this morning, patient continues to have intermittent cough, nonproductive, has significant right-sided chest pain with coughing and with deep breathing. Very pleuritic in nature. 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 04/21 stomach removed 1989 then other half removed 1994 d/t ulcers-pouch created from small intestine, nasal sx d/t broken nose, colonoscopy/egd Past Anesthesia/Blood Transfusion Reactions: No Reported Reaction Additional Past Anesthesia/Blood Transfusion Reaction / Comment(s): PT RECIEVED BLOOD TRANSFUSIONS AFTER STOMACH SURGERY Past Psychological History: Anxiety, Depression, Panic Disorder Additional Psychological History / Comment(s): PT LIVES AT HOME ALONE. PT IS ABLE TO DRIVE A CAR. 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 Smoking Status: Never smoker Past Alcohol Use History: None Reported Past Drug Use History: None Reported - Past Family History Father Family Medical History: Cancer, Coronary Artery Disease (CAD) Additional Family Medical History / Comment(s): FATHER HAD BLADDER AND KIDNEY CANCER. FATHER HAD TB WHEN HE WAS A CHILD .FATHER AT AGE 87. Mother Family Medical History: Cancer Additional Family Medical History / Comment(s): MOTHER AT AGE 58 OF OVARIAN CANCER. Medications and Allergies Home Medications Medication Instructions Recorded Confirmed Type DULoxetine HCL [Cymbalta] 60 mg PO DAILY 09/17/13 04/01/19 History Omeprazole [PriLOSEC] 20 mg PO AC-BRKFST #30 capsule. 03/17/14 04/01/19 Rx Folic Acid 1 mg PO DAILY@1200 #1 tablet 04/18/14 04/01/19 Rx Thiamine [Vitamin B-1] 100 mg PO DAILY@1200 #1 tablet 04/18/14 04/01/19 Rx Ergocalciferol [Vitamin D2 50,000 unit PO QMONTH 09/05/14 04/01/19 History (PANTERA)] fentaNYL 100MCG/HR PATCH 1 patch TRANSDERM Q72H 04/10/15 04/01/19 History [Duragesic 100Mcg/Hr Patch] Cyanocobalamin [Vitamin B-12 1,000 mcg SQ [id number] 11/06/15 04/01/19 History Injection] Ferrous Sulfate [Feosol] 650 mg PO DAILY 11/06/15 04/01/19 History Fluticasone Nasal [place] [Flonase 1 spr EA NOSTRIL BID 11/06/15 04/01/19 History Nasal [place]] Furosemide [Lasix] 20 mg PO DAILY 11/06/15 04/01/19 History HYDROcodone/APAP 5-325MG [[place] 1 tab PO TID PRN 11/06/15 04/01/19 History 5-325] Levothyroxine Sodium [Synthroid] 100 mcg PO DAILY 11/06/15 04/01/19 History Metolazone [Zaroxolyn] 2.5 mg PO DAILY 11/06/15 04/01/19 History Polyethylene Glycol 3350 [Miralax] 17 gm PO DAILY PRN 11/06/15 04/01/19 History SUMAtriptan SUCCINATE [Imitrex] 50 mg PO DAILY PRN 11/06/15 04/01/19 History buPROPion HCL [Wellbutrin XL] 300 mg PO DAILY 11/06/15 04/01/19 History busPIRone HCL 30 mg PO BID 11/06/15 04/01/19 History cloNIDine 0.2 MG/24HR PATCH 1 patch TRANSDERM REYNA 09/30/16 04/01/19 History [Catapres-TTS] Albuterol Inhaler [Ventolin Hfa 1 - 2 puff INHALATION RT-Q6H PRN 05/31/17 04/01/19 History Inhaler] Levocetirizine Dihydrochloride 5 mg PO HS 05/31/17 04/01/19 History [Xyzal] Mirtazapine [Remeron ODT] 60 mg PO HS 05/31/17 04/01/19 History Potassium Chloride ER [K-Dur 10] 30 meq PO DAILY 04/01/19 04/01/19 History Allergies Allergy/AdvReac Type Severity Reaction Status Date / Time poliomyelitis vaccine, live Allergy Unknown Verified 04/01/19 15:20 oral Childhood [poliomyelitis vaccine,live] DUST Allergy Itching Uncoded 05/31/17 09:00 MOLDS Allergy Itching Uncoded 05/31/17 09:00 Physical Exam Vitals: Vital Signs Temp Pulse Pulse Resp BP BP Pulse Ox 04/02/19 08:11 97.2 F L 112 H 18 147/84 98 04/02/19 07:32 106 H 04/02/19 07:16 111 H 04/02/19 03:26 119 H 18 165/87 96 04/02/19 00:00 98.2 F 119 H 17 140/83 96 04/01/19 20:00 98.2 F 109 H 20 130/75 97 04/01/19 19:56 118 H 16 04/01/19 19:49 110 H 16 04/01/19 18:57 116 H 149/77 04/01/19 17:49 138 H 18 04/01/19 17:43 97.5 F L 138 H 18 174/104 96 04/01/19 17:19 98.4 F 116 H 20 140/78 98 04/01/19 16:30 98.7 F 115 H 20 136/89 98 04/01/19 15:30 98.3 F 116 H 18 140/88 96 04/01/19 14:37 120 H 04/01/19 14:24 116 H 04/01/19 14:15 112 H 143/87 99 04/01/19 13:00 118 H 120 H 20 147/89 99 04/01/19 12:48 98.5 F 128 H 26 H 163/104 96 04/01/19 12:47 97 Intake and Output 04/01/19 04/02/19 04/02/19 22:59 06:59 14:59 Intake Total 810 Output Total 300 Balance 810 -300 Intake: IV 10 Invasive Line 1 10 Oral 800 Output: Urine 300 Other: Voiding Method Toilet # Voids 1 Weight 39.871 kg 39.6 kg PHYSICAL EXAMINATION: GENERAL:74-year-old thin female in no acute distress at the time of my examination HEENT: Head is atraumatic, normocephalic. Pupils equal, round. Sclera anicteric. Conjunctiva are clear. Mucous membranes of the mouth are moist. Neck is supple. There is no elevated jugular venous pressure.no carotid bruit is heard. HEART EXAMINATION:Heart S1, S2 tachycardic. No murmur or gallop heard. CHEST EXAMINATION:lungs reveal scattered coarse rhonchi that clear with cough ABDOMEN: Soft, nontender. Bowel sounds are heard. No organomegaly noted. EXTREMITIES: 2+ peripheral pulses with no evidence of peripheral edema and no calf tenderness noted. NEUROLOGIC patient is awake, alert and oriented X3 . Results 04/02/19 04:53 04/02/19 04:53 Cardiac Enzymes 04/01/19 04/01/19 04/01/19 Range/Units 13:05 13:05 19:57 AST 18 (14-36) U/L Troponin I <0.012 <0.012 (0.000-0.034) ng/mL 04/02/19 Range/Units 00:10 AST (14-36) U/L Troponin I <0.012 (0.000-0.034) ng/mL Coagulation 04/01/19 Range/Units 13:05 PT 9.2 (9.0-12.0) sec APTT 34.4 H (22.0-30.0) sec CBC 04/01/19 04/02/19 Range/Units 13:05 04:53 WBC 15.4 H 11.7 H (3.8-10.6) k/uL RBC 3.93 3.60 L (3.80-5.40) m/uL Hgb 11.9 11.1 L (11.4-16.0) gm/dL Hct 37.8 34.9 (34.0-46.0) % Plt Count 421 429 (150-450) k/uL Comprehensive Metabolic Panel 04/01/19 04/02/19 Range/Units 13:05 04:53 Sodium 141 139 (137-145) mmol/L Potassium 3.1 L 3.0 L (3.5-5.1) mmol/L Chloride 106 106 (98-107) mmol/L Carbon Dioxide 24 27 (22-30) mmol/L BUN 45 H 36 H (7-17) mg/dL Creatinine 1.75 H 1.52 H (0.52-1.04) mg/dL Glucose 80 92 (74-99) mg/dL Calcium 8.8 8.6 (8.4-10.2) mg/dL AST 18 (14-36) U/L ALT 12 (4-34) U/L Alkaline Phosphatase 149 H (38-126) U/L Total Protein 5.3 L (6.3-8.2) g/dL Albumin 3.1 L (3.5-5.0) g/dL Current Medications Generic Name Dose Route Start Last Admin Trade Name Freq PRN Reason Stop Dose Admin Hydrocodone Bitart/Acetaminophen 1 each 04/01/19 18:23 04/02/19 03:18 [place] 5-325 PO 1 each TID PRN Administration Moderate Pain Albuterol Sulfate 2.5 mg 04/01/19 16:00 04/02/19 07:26 Ventolin Nebulized INHALATION Not Given RT-QID CHAD Albuterol/Ipratropium 3 ml 04/01/19 14:49 04/02/19 07:16 Duoneb 0.5 Mg-3 Mg/3 Ml Soln INHALATION 3 ml RT-Q4H PRN Administration shortness of breath Bupropion HCl 300 mg 04/02/19 09:00 04/02/19 07:59 Wellbutrin Xl PO 300 mg DAILY CHAD Administration Buspirone HCl 30 mg 04/01/19 21:00 04/02/19 07:58 Buspar PO 30 mg BID CHAD Administration Clonidine HCl 1 patch 04/03/19 09:00 Catapres-Tts 0.2mg Patch TRANSDERM REYNA CHAD Duloxetine HCl 60 mg 04/02/19 09:00 04/02/19 07:59 Cymbalta PO 60 mg DAILY CHAD Administration Enoxaparin Sodium 40 mg 04/01/19 19:00 04/02/19 08:00 Lovenox SQ 40 mg DAILY CHAD Administration Ergocalciferol 50,000 unit 04/01/19 19:00 Vitamin D2 PO QMONTH CHAD Fentanyl 1 patch 04/02/19 09:00 04/02/19 08:01 Duragesic 100mcg/Hr Patch TRANSDERM 1 patch Q72H CHAD Administration Ferrous Sulfate 650 mg 04/02/19 09:00 04/02/19 07:59 Feosol PO 650 mg DAILY CHAD Administration Fluticasone Propionate 1 spray 04/01/19 21:00 04/02/19 07:59 Flonase Nasal [place] EA NOSTRIL 1 spray BID CHAD Administration Folic Acid 1 mg 04/02/19 12:00 04/02/19 08:00 Folic Acid PO 1 mg DAILY@1200 CHAD Administration Furosemide 20 mg 04/02/19 09:00 04/02/19 07:59 Lasix PO 20 mg DAILY CHAD Administration Hydromorphone HCl 0.5 mg 04/01/19 18:28 04/02/19 07:07 Dilaudid IVP 0.5 mg Q4HR PRN Administration Severe Pain Levothyroxine Sodium 100 mcg 04/02/19 06:30 04/02/19 07:07 Synthroid PO 100 mcg DAILY@0630 CHAD Administration Loratadine 10 mg 04/01/19 21:00 04/01/19 20:40 Claritin PO 10 mg HS CHAD Administration Metolazone 2.5 mg 04/02/19 09:00 04/02/19 08:00 Zaroxolyn PO 2.5 mg DAILY CHAD Administration Mirtazapine 60 mg 04/01/19 21:00 04/01/19 20:39 Remeron PO 60 mg HS CHAD Administration Miscellaneous Information 1 each 04/01/19 14:49 Pneumonia Protocol Utilized PO ONCE PRN Per Protocol Pantoprazole Sodium 40 mg 04/02/19 07:30 04/02/19 07:07 Protonix PO 40 mg AC-BRKFST CHAD Administration Polyethylene Glycol 17 gm 04/01/19 18:23 Miralax PO DAILY PRN Constipation Potassium Chloride 30 meq 04/02/19 09:00 04/02/19 07:59 K-Dur 10 PO 30 meq DAILY CHAD Administration Sumatriptan Succinate 50 mg 04/01/19 18:23 Imitrex PO DAILY PRN Migraine Headache Thiamine HCl 100 mg 04/02/19 12:00 04/02/19 08:00 Vitamin B-1 PO 100 mg DAILY@1200 CHAD Administration Intake and Output 04/01/19 04/02/19 04/02/19 22:59 06:59 14:59 Intake Total 810 Output Total 300 Balance 810 -300 Intake: IV 10 Invasive Line 1 10 Oral 800 Output: Urine 300 Other: Voiding Method Toilet # Voids 1 Weight 39.871 kg 39.6 kg 04/02/19 04:53 04/02/19 04:53 EKG Interpretations (text) EKG shows a sinus tachycardia with no acute changes. Assessment and Plan Plan: Assessment and plan #1 chest pain, very pleuritic in nature, atypical for acute coronary syndrome. Troponins are negative 3. EKG shows a sinus tachycardia with no acute changes. #2 cough, nonproductive, possible asthma exacerbation, possible tracheobronchitis,VQ scan was performed this is indeterminate for PE #3 history of pancreatitis #4 history of stomach ulcers with multiple surgeries #5 asthma #6 depression and anxiety #7 chronic renal insufficiency #8 hypothyroidism #9 hypertension #10 hypokalemia Plan Patient's pain is very atypical in nature, we will obtain an echocardiogram with Doppler study. Patient does take Zaroxolyn and Lasix daily. Replace potassium. We will consider discontinuing the Zaroxolyn at this time.check a fasting lipid profile. DNP note has been reviewed, I agree with a documented findings and plan of care. Patient was seen and examined.
--- NOTE | 2019-04-02 13:25 | P.HPIM ---
History of Present Illness H&P Date: 04/02/19 Chief Complaint: Chest pain shortness of breath and cough Louise Sutton is a 74-year-old female patient of Dr. Eli, who presented to [facility] emergency room with a chief complaint of cough, shortness of breath, and the right sided chest pain, patient stated that her symptoms started two weeks ago and has been worsening, she denies ever smoking in the past. She was evaluated in the emergency room, she was found to have tachycardia and tachypnea, no fever, chest x-ray revealed patchy infiltrates in both lung calixto suggestive of pneumonia, she was started on IV antibiotic and was admitted to telemetry floor. D-dimer was elevated on presentation, computed tomography scan angiogram of the chest could not be done due to known history of stage IV chronic kidney disease, VQ scan was done and was indeterminate. She was started on Lovenox 40 mg subcu twice daily until further evaluation is done. Patient stated that she had one blood clot in her right leg more than 30 years ago when she was on control pills, otherwise she denies any history of blood clots in the past. She denies any known history of cancer. She states that for the last 2-3 months she has been losing weight. 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 PT IS ABLE TO DRIVE A CAR. 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 Smoking Status: Never smoker Past Alcohol Use History: None Reported Past Drug Use History: None Reported - Past Family History Father Family Medical History: Cancer, Coronary Artery Disease (CAD) Additional Family Medical History / Comment(s): FATHER HAD BLADDER AND KIDNEY CANCER. FATHER HAD TB WHEN HE WAS A CHILD .FATHER AT AGE 87. Mother Family Medical History: Cancer Additional Family Medical History / Comment(s): MOTHER AT AGE 58 OF OVARIAN CANCER. Medications and Allergies Home Medications Medication Instructions Recorded Confirmed Type DULoxetine HCL [Cymbalta] 60 mg PO DAILY 09/17/13 04/01/19 History Omeprazole [PriLOSEC] 20 mg PO AC-BRKFST #30 capsule. 03/17/14 04/01/19 Rx Folic Acid 1 mg PO DAILY@1200 #1 tablet 04/18/14 04/01/19 Rx Thiamine [Vitamin B-1] 100 mg PO DAILY@1200 #1 tablet 04/18/14 04/01/19 Rx Ergocalciferol [Vitamin D2 50,000 unit PO QMONTH 09/05/14 04/01/19 History (PANTERA)] fentaNYL 100MCG/HR PATCH 1 patch TRANSDERM Q72H 04/10/15 04/01/19 History [Duragesic 100Mcg/Hr Patch] Cyanocobalamin [Vitamin B-12 1,000 mcg SQ [id number] 11/06/15 04/01/19 History Injection] Ferrous Sulfate [Feosol] 650 mg PO DAILY 11/06/15 04/01/19 History Fluticasone Nasal Dickinson [Flonase 1 spr EA NOSTRIL BID 11/06/15 04/01/19 History Nasal Dickinson] Furosemide [Lasix] 20 mg PO DAILY 11/06/15 04/01/19 History HYDROcodone/APAP 5-325MG [[place] 1 tab PO TID PRN 11/06/15 04/01/19 History 5-325] Levothyroxine Sodium [Synthroid] 100 mcg PO DAILY 11/06/15 04/01/19 History Metolazone [Zaroxolyn] 2.5 mg PO DAILY 11/06/15 04/01/19 History Polyethylene Glycol 3350 [Miralax] 17 gm PO DAILY PRN 11/06/15 04/01/19 History SUMAtriptan SUCCINATE [Imitrex] 50 mg PO DAILY PRN 11/06/15 04/01/19 History buPROPion HCL [Wellbutrin XL] 300 mg PO DAILY 11/06/15 04/01/19 History busPIRone HCL 30 mg PO BID 11/06/15 04/01/19 History cloNIDine 0.2 MG/24HR PATCH 1 patch TRANSDERM REYNA 09/30/16 04/01/19 History [Catapres-TTS] Albuterol Inhaler [Ventolin Hfa 1 - 2 puff INHALATION RT-Q6H PRN 05/31/17 04/01/19 History Inhaler] Levocetirizine Dihydrochloride 5 mg PO HS 05/31/17 04/01/19 History [Xyzal] Mirtazapine [Remeron ODT] 60 mg PO HS 05/31/17 04/01/19 History Potassium Chloride ER [K-Dur 10] 30 meq PO DAILY 04/01/19 04/01/19 History Allergies Allergy/AdvReac Type Severity Reaction Status Date / Time poliomyelitis vaccine, live Allergy Unknown Verified 04/01/19 15:20 oral Childhood [poliomyelitis vaccine,live] DUST Allergy Itching Uncoded 05/31/17 09:00 MOLDS Allergy Itching Uncoded 05/31/17 09:00 Physical Exam Vitals: Vital Signs Temp Pulse Pulse Resp BP BP Pulse Ox 04/02/19 11:57 98.6 F 120 H 18 147/86 96 04/02/19 11:11 104 H 04/02/19 10:55 104 H 04/02/19 08:11 97.2 F L 112 H 18 147/84 98 04/02/19 07:32 106 H 04/02/19 07:16 111 H 04/02/19 03:26 119 H 18 165/87 96 04/02/19 00:00 98.2 F 119 H 17 140/83 96 04/01/19 20:00 98.2 F 109 H 20 130/75 97 04/01/19 19:56 118 H 16 04/01/19 19:49 110 H 16 04/01/19 18:57 116 H 149/77 04/01/19 17:49 138 H 18 04/01/19 17:43 97.5 F L 138 H 18 174/104 96 04/01/19 17:19 98.4 F 116 H 20 140/78 98 04/01/19 16:30 98.7 F 115 H 20 136/89 98 04/01/19 15:30 98.3 F 116 H 18 140/88 96 04/01/19 14:37 120 H 04/01/19 14:24 116 H 04/01/19 14:15 112 H 143/87 99 Intake and Output 04/01/19 04/02/19 04/02/19 22:59 06:59 14:59 Intake Total 810 Output Total 300 Balance 810 -300 Intake: IV 10 Invasive Line 1 10 Oral 800 Output: Urine 300 Other: Voiding Method Toilet # Voids 1 # Bowel Movements 1 Weight 39.871 kg 39.6 kg In general patient is alert and oriented 3 in no apparent distress HEENT head normocephalic and atraumatic Neck is supple no JVD no goiter no lymphadenopathy Chest exam reveals a scattered crackles in both lung calixto no wheezing Cardiac exam reveals regular heart sounds S1 and S2 with tachycardia, no gallops no murmurs Abdomen is soft nontender no organomegaly was normal bowel sounds Extremity exam reveals no edema no cyanosis or clubbing Neurological examination reveals no gross focal deficits Results CBC & Chem 7: 04/02/19 04:53 04/02/19 04:53 Labs: Abnormal Lab Results - Last 24 Hours (Table) 04/01/19 04/01/19 04/01/19 Range/Units 13:05 13:05 13:05 WBC 15.4 H (3.8-10.6) k/uL RBC (3.80-5.40) m/uL Hgb (11.4-16.0) gm/dL Neutrophils # 12.7 H (1.3-7.7) k/uL APTT 34.4 H (22.0-30.0) sec D-Dimer 1.07 H (<0.60) mg/L FEU Potassium 3.1 L (3.5-5.1) mmol/L BUN 45 H (7-17) mg/dL Creatinine 1.75 H (0.52-1.04) mg/dL Alkaline Phosphatase 149 H (38-126) U/L Total Protein 5.3 L (6.3-8.2) g/dL Albumin 3.1 L (3.5-5.0) g/dL 04/02/19 04/02/19 Range/Units 04:53 04:53 WBC 11.7 H (3.8-10.6) k/uL RBC 3.60 L (3.80-5.40) m/uL Hgb 11.1 L (11.4-16.0) gm/dL Neutrophils # 8.8 H (1.3-7.7) k/uL APTT (22.0-30.0) sec D-Dimer (<0.60) mg/L FEU Potassium 3.0 L (3.5-5.1) mmol/L BUN 36 H (7-17) mg/dL Creatinine 1.52 H (0.52-1.04) mg/dL Alkaline Phosphatase (38-126) U/L Total Protein (6.3-8.2) g/dL Albumin (3.5-5.0) g/dL Thrombosis Risk Factor Assmnt - Choose All That Apply Any of the Below Risk Factors Present?: No Each Factor Represents 1 point: Swollen legs (current) Other Risk Factors: Yes Each Risk Factor Represents 2 Points: Age 61-74 years Each Risk Factor Represents 3 Points: History of DVT/PE Other congenital or acquired thrombophilia - If yes, enter type in comment: No Thrombosis Risk Factor Assessment Total Risk Factor Score: 6 Thrombosis Risk Factor Assessment Level: High Risk Assessment and Plan Plan: #1 bilateral patchy infiltrate suggestive of pneumonia patient is started on IV Rocephin and IV Zithromax Will monitor closely, will add Mucinex, and obtain a sputum sample for culture and Gram stain #2 elevated d-dimer, and symptoms suggestive of possible pulmonary embolism, including tachycardia tachypnea and pleuritic chest pain, VQ scan was done and was indeterminate, at this time patient is covered with subcu Lovenox at therapeutic dose of 1 mg/kg gram twice a day, will check bilateral lower extremity Doppler, and may repeat VQ scan when pneumonia is improving to assess if there is any evidence of pulmonary embolism. #3 chest pain, pleuritic in nature troponin level negative, EKG reveals tachycardia without any acute ischemic changes, cardiology consultation requested. #4 known history of stage IV chronic kidney disease, maintained on Lasix and Zaroxolyn, creatinine on presentation 1.75, at this time Zaroxolyn is on hold Will monitor kidney function closely #5 hypokalemia, we will replace potassium carefully due to abnormal kidney function #6 underlying history of depression on multiple psychiatric medications, at this time will hold Remeron due to interaction was Zithromax, will resume Remeron when possible. #7 underlying history of hypertension, with borderline control, will monitor blood pressure and adjust medications as needed #8 underlying history of migraine headache #9 underlying history of chronic pain maintained on fentanyl patch, and Shamrock medication were resumed. #10 poor oral intake with significant weight loss over the last 2 month, will consult dietitian. At this time medication and labs were reviewed plan as above Will follow closely Pulmonary and cardiology consultation requested
[2019-04-02] MEDS ORDERED: POTASSIUM CHLORIDE ER 20 MEQ TAB.ER PO STA (13:29)
--- NOTE | 2019-04-02 14:32 | US ---
EXAMINATION TYPE: US venous doppler duplex LE DATE OF EXAM: 04/02/2019 1:47 PM COMPARISON: NONE CLINICAL HISTORY: elevated D-Dimer rule out DVT.Pneumonia; Patient stated had right leg blood clot 5 0 years ago SIDE PERFORMED: Bilateral TECHNIQUE: The lower extremity deep venous system is examined utilizing real time linear array sonog jaguar with graded compression, doppler sonography and color-flow sonography. VESSELS IMAGED: Common Femoral Vein Deep Femoral Vein Greater Saphenous Vein * Femoral Vein Popliteal Vein Small Saphenous Vein * Proximal Calf Veins (* superficial vessels) Right Leg: Mid right Femoral Vein intimal wall thickness is noted, but is patent and compressible, o therwise leg is negative for DVT. Left Leg: Negative for DVT No popliteal lesion is seen. IMPRESSION: THIS EXAMINATION IS NEGATIVE FOR ACUTE DVT IN BOTH LEGS.
[2019-04-02] MEDS: guaiFENesin 600 MG TABLET.ER PO SCH ×2 (15:09→20:51)
--- NOTE | 2019-04-02 15:42 | CONS ---
CONSULTATION PULMONARY/CRITICAL CARE CONSULTATION: DATE OF SERVICE: 04/02/2019 REASON FOR CONSULTATION: Shortness of breath, cough and chest congestion with phlegm production. This is a 74-year-old female who sees Dr. Nabila Eli up in [place]. She has a history of chronic bronchial asthma and chronic kidney disease. She presented to the emergency department on April 01 with complaints of increasing shortness of breath and chest congestion with cough and phlegm production. She has been having symptoms for about 5 days or so. In addition, she complains of pain in the chest. The pain is a sharp pain. It is worse with deep breathing, coughing or body movements. It is consistent with pleurisy. Anyway, the reason the patient came into the hospital were for those complaints. She was not having any fever or chills. There is no nausea, vomiting or diarrhea. No genitourinary complaints. She is a lifelong nonsmoker. The patient does have a history of chronic bronchial asthma. No history of COPD. For her asthma, she uses a Ventolin inhaler and an Asmanex inhaler. She had an indeterminate V/Q scan. She had chest x-rays which showed evidence of bilateral pneumonia. Her clinical picture is that of pneumonia more than anything else. In addition to pneumonia, she has evidence of pleurisy. I do not suspect that she has pulmonary embolism. HOME MEDICATIONS: Include Cymbalta, K-Dur, Drisdol, fentanyl patch, Fosamax, B12 injections, iron, Flonase nasal spray, Lasix, [place], Atrovent nasal spray, Synthroid, Zaroxolyn, multivitamins, MiraLAX, Imitrex, Wellbutrin XL, BuSpar, clonidine patch, albuterol inhaler, Xyzal, Remeron, Singulair, and Asmanex inhaler. She also has been on Bactrim in the past. ALLERGIES: Includes POLIO VACCINE, DUST AND MOLD. PAST MEDICAL HISTORY: Positive for chronic bronchial asthma, deep venous thrombosis, GERD, osteoarthritis, gastric ulcers, migraine cephalgia, pancreatitis, chronic constipation, TIA, and spinal stenosis. SURGICAL HISTORY: Includes among other things back surgery and bowel resection. She has also had a gastric surgery as well as a nasal surgical procedure for broken nose, colonoscopy and EGD. SOCIAL HISTORY: Significant that she is a lifelong nonsmoker. Denies any alcohol use or illicit drug use. FAMILY HISTORY: Positive for a father with CAD and bladder and kidney cancer. Father also apparently had tuberculosis. Mother had a history of ovarian carcinoma. REVIEW OF SYSTEMS: CONSTITUTIONAL: Negative. NEUROLOGIC: Negative. HEENT: Negative. CARDIOVASCULAR: Sharp right-sided pleuritic chest pain, worse on deep breathing, sneezing or coughing and changes in body position. PULMONARY: Shortness of breath, chest tightness, wheezing, cough, some phlegm production. GI: Negative. : Negative. RHEUMATOLOGIC: Negative. IMMUNOLOGIC: Negative. ENDOCRINOLOGIC: Negative. DERMATOLOGIC: Negative. PHYSICAL EXAMINATION: VITAL SIGNS: Current vital signs are reviewed. Temperature is 97.2, heart rate 100, respiratory rate 18, blood pressure 147/86, mean 106, room air saturation between 96 and 98%. Appears no acute distress. HEENT examination is grossly unremarkable. She is not wearing any supplemental oxygen. There is no use of accessory muscles, conversational dyspnea or audible wheezing. NECK: Supple. Full range of motion. No adenopathy. Neck veins flat. CARDIOVASCULAR examination reveals regular rhythm and rate. Heart rate about 100 beats per minute. S1, S2 normal. No S3, S4, or murmur. LUNGS: Reveal some coarse bilateral rhonchi. No wheezes. A few scattered crackles are noted. Breath sounds equal bilaterally. Slight prolongation on forced maneuver. ABDOMEN: Soft. Bowel sounds are heard. EXTREMITIES are intact. No cyanosis, clubbing, or edema. SKIN: Without rash. NEUROLOGIC: Examination is brief but nonfocal. IMAGING PROCEDURE: A chest x-ray done on admission shows bilateral patchy infiltrates. This is consistent primarily with pneumonia in my opinion. There could be also a small component of fluid overload. Lung perfusion scan was indeterminate for pulmonary embolism. There were several subsegmental matching defects but no ventilation perfusion mismatches. A repeat chest x-ray on the shows changes of asthma as well as diffuse bilateral patchy airspace disease. LABORATORY DATA: Includes a white count of 1.7, hemoglobin 11.1, hematocrit 34.9, platelet count 429,000. PT/INR normal, PTT 34.4, D-dimer 1.07. Sodium 139, potassium 3, chloride 106, CO2 is 27, anion gap is 6. BUN and creatinine were 36 and 1.52. N-terminal proBNP was 796. Troponins were negative x3. Albumin 3.1. Microbiologic studies are negative. Current medications are reviewed. The patient is on albuterol updrafts, BuSpar, Wellbutrin, clonidine, Cymbalta, Lovenox, vitamin D, fentanyl patch, iron sulfate, Flonase nasal spray, folic acid, Lasix, [place], Dilaudid p.r.n., updrafts with albuterol and Atrovent, levothyroxine, loratadine, Remeron, Protonix, polyethylene glycol, potassium and thiamine. ASSESSMENT: 1. Shortness of breath, cough, congestion, chest tightness and some wheezing as well as right-sided pleuritic chest pain, all consistent in my opinion with asthma exacerbation complicated by pneumonia and pleurisy. 2. Doubt pulmonary embolism. 3. History of chronic kidney disease. 4. History of deep venous thrombosis. 5. History of gastroesophageal reflux disease. 6. History of degenerative joint disease. 7. History of migraine cephalgia. 8. History of pancreatitis. 9. History of constipation. 10.Transient ischemic attack. 11.History of spinal stenosis. 12.Multiple other medical problems and comorbidities. 13.Anxiety/depression as well as panic disorder. PLAN: The suspect the patient's proper diagnosis is asthma exacerbation complicated by pneumonia. I think the V/Q scan was indeterminate because of the abnormalities seen on chest x-ray. I would give the patient some additional medications in the form of Pulmicort and Perforomist. In addition, we will start the patient on antibiotics. In my opinion, she does not need to be treated for the pulmonary embolism. One could alternatively hydrate her up and wait until her kidney function improves and then go ahead and do a CT angiogram. That would be more precise in making a diagnosis of PE, which I believe she does not have. Additional recommendations and suggestions are forthcoming. We will continue to follow. MMODL / IJN: [id number] /
[2019-04-02] MEDS: AZITHROMYCIN 500 MG in SODIUM CHLORIDE 0.9% 250 ML IVPB SCH (15:44)
--- NOTE | 2019-04-02 16:01 | ECHOF ---
Referral Reason:chest pain MEASUREMENTS -------- HEIGHT: 157.5 cm WEIGHT: 39.5 kg BP: 147/84 IVSd: 1.3 cm (0.6 - 1.1) LVIDd: 1.6 cm (3.9 - 5.3) LVPWd: 1.5 cm (0.6 - 1.1) IVSs: 1.9 cm LVIDs: 1.0 cm LVPWs: 1.7 cm LAESV Index (A-L): 14.58 ml/m Ao Diam: 2.4 cm (2.0 - 3.7) AV Cusp: 1.7 cm (1.5 - 2.6) MV E Ric: 0.60 m/s MV DecT: 243 ms MV A Ric: 1.08 m/s MV E/A Ratio: 0.56 FINDINGS -------- Sinus rhythm. The left ventricular size is normal. There is moderate concentric left ventricular hypertrophy. O verall left ventricular systolic function is normal with, an EF between 55 - 60 %. The diastolic fi lling pattern is normal for the age of the patient {E/E'}. The right ventricle is normal in size. Normal LA size by volume 22+/-6 ml/m2. The right atrium was not well visualized. Interatrial and interventricular septum intact. The aortic valve was not well visualized. There is mild aortic valve sclerosis. There is no evide nce of aortic regurgitation. There is no evidence of aortic stenosis. No mitral regurgitation. Trace tricuspid regurgitation present. There is no evidence of pulmonary hypertension. The right ventricular systolic pressure, as measured by Doppler, is {RVSP}. The pulmonic valve was not well visualized. The aortic root size is normal. Normal inferior vena cava with normal inspiratory collapse consistent with estimated right atrial pre ssure of 5 mmHg. There is no pericardial effusion. CONCLUSIONS -------- 1. Sinus rhythm. 2. The left ventricular size is normal. 3. There is moderate concentric left ventricular hypertrophy. 4. Overall left ventricular systolic function is normal with, an EF between 55 - 60 %. 5. The diastolic filling pattern is normal for the age of the patient {E/E'} 6. The right ventricle is normal in size. 7. Normal LA size by volume 22+/-6 ml/m2. 8. The right atrium was not well visualized. 9. Interatrial and interventricular septum intact. 10. The aortic valve was not well visualized. 11. There is mild aortic valve sclerosis. 12. There is no evidence of aortic regurgitation. 13. There is no evidence of aortic stenosis. 14. No mitral regurgitation. 15. Trace tricuspid regurgitation present. 16. There is no evidence of pulmonary hypertension. 17. The right ventricular systolic pressure, as measured by Doppler, is {RVSP}. 18. The pulmonic valve was not well visualized. 19. The aortic root size is normal. 20. Normal inferior vena cava with normal inspiratory collapse consistent with estimated right atrial pressure of 5 mmHg. 21. There is no pericardial effusion. COOKER HELPER: Grace Sweeney RDCS
[2019-04-02] MEDS: methylPREDNISolone SOD SUCCI 40 MG/ML 1 ML VIAL IV SCH ×2 (17:03→22:59)
[2019-04-02] MEDS: BUDESONIDE 1 MG/2 ML NEBU INHALATION SCH (20:13)
[2019-04-02] MEDS: FORMOTEROL FUMARATE 20 MCG/2 ML NEBU INHALATION SCH (20:13)
[2019-04-02] MEDS: LORATADINE 10 MG TAB PO SCH (20:51)
[2019-04-03] MEDS: HYDROmorphone 0.5 MG/0.5 ML SYRINGE IVP PRN ×6 (02:06→21:20)
[2019-04-03] MEDS: LEVOTHYROXINE 100 MCG TAB PO SCH (05:54)
[2019-04-03] MEDS: PANTOPRAZOLE 40 MG TABLET PO SCH (05:54)
[2019-04-03] MEDS: methylPREDNISolone SOD SUCCI 40 MG/ML 1 ML VIAL IV SCH ×4 (05:54→23:31)
[2019-04-03 06:10] LABS: Basophils % (A) 0 %; Eosinophils % (A) 0 %; HCT 38.2 % (34.0-46.0); HGB 11.8 gm/dL (11.4-16.0); Lymphocytes # (A) 0.8 k/uL (1.0-4.8); Lymphocytes % (A) 9 %; MCH 30.6 pg (25.0-35.0); MCV 98.7 fL (80.0-100.0); Mean Platelet Volume 7.2; Monocytes # (A) 0.2 k/uL (0-1.0); Monocytes % (A) 2 %; Neutrophils # (A) 8.3 k/uL (1.3-7.7); Neutrophils % (A) 88 %; Platelet Count 498 k/uL (150-450); RBC 3.87 m/uL (3.80-5.40); RDW 14.4 % (11.5-15.5); WBC 9.4 k/uL (3.8-10.6)
[2019-04-03 06:24] LABS: Albumin 2.9 g/dL (3.5-5.0); Calcium 9.1 mg/dL (8.4-10.2); Potassium 3.9 mmol/L (3.5-5.1); Total Bilirubin 0.5 mg/dL (0.2-1.3); Total Protein 5.3 g/dL (6.3-8.2)
[2019-04-03] MEDS: ALBUTEROL NEBULIZED 2.5 MG/3 ML INHALATION SCH ×4 (07:56→19:02)
[2019-04-03] MEDS: FORMOTEROL FUMARATE 20 MCG/2 ML NEBU INHALATION SCH ×2 (07:56→19:02)
[2019-04-03] MEDS: BUDESONIDE 1 MG/2 ML NEBU INHALATION SCH ×2 (07:56→19:02)
[2019-04-03] MEDS: ENOXAPARIN 40 MG/0.4 ML SYRINGE SQ SCH (08:04)
[2019-04-03] MEDS: FLUTICASONE 50MCG/SPRAY NASAL 16GM EA NOSTRIL SCH ×2 (08:04→20:07)
[2019-04-03] MEDS: POTASSIUM CHLORIDE ER 10 MEQ TAB.ER.PRT PO SCH (08:05)
[2019-04-03] MEDS: FUROSEMIDE 20 MG TAB PO SCH (08:05)
[2019-04-03] MEDS: THIAMINE 100 MG TAB PO SCH (08:05)
[2019-04-03] MEDS: DULoxetine HCL 60 MG CAPSULE.DR PO SCH (08:05)
[2019-04-03] MEDS: guaiFENesin 600 MG TABLET.ER PO SCH ×2 (08:05→20:06)
[2019-04-03] MEDS: buPROPion XL 300 MG TAB.ER.24H PO SCH (08:05)
[2019-04-03] MEDS: FOLIC ACID 1 MG TAB PO SCH (08:05)
[2019-04-03] MEDS: FERROUS SULFATE 325 MG TAB PO SCH (08:05)
[2019-04-03] MEDS: HYDROcodone/APAP 5-325MG 1 EACH TAB PO PRN ×3 (08:08→23:31)
[2019-04-03] MEDS: busPIRone HCl 10 MG TAB PO SCH ×2 (08:08→20:06)
[2019-04-03] MEDS: AZITHROMYCIN 500 MG in SODIUM CHLORIDE 0.9% 250 ML IVPB SCH (08:49)
[2019-04-03] MEDS ORDERED: cloNIDine 0.2 MG/24HR PATCH TRANSDERM SCH (09:00)
[2019-04-03] MEDS: SUMAtriptan SUCCINATE 50 MG TAB PO PRN (09:51)
--- NOTE | 2019-04-03 09:56 | P.PN ---
Subjective Progress Note Date: 04/03/19 Principal diagnosis: Atypical chest discomfort secondary to pleurisy from suspected pneumonia The patient is seen today 04/03/2019 in follow-up on the selective care unit. She is awake and alert in no acute distress. Her right-sided chest discomfort is improved today compared to yesterday. Still with some shortness of breath cough and congestion. She is maintaining good O2 saturations in the 90s on room air. She's been afebrile. Blood culture reveals no growth. White count 9.4. Hemoglobin 11.8. Creatinine 1.66. Echocardiogram revealed preserved left ventricular systolic function. Dopplers of the lower extremity negative for DVT. She is continued on DuoNeb inhalations, IV Solu-Medrol, antibiotics in the form of ceftriaxone and azithromycin. Objective - Vital Signs Vital signs: Vital Signs Temp 98.0 F 04/03/19 08:15 Pulse 102 H 04/03/19 08:16 Resp 16 04/03/19 08:15 BP 146/84 04/03/19 08:15 Pulse Ox 96 04/03/19 08:15 Intake & Output 04/02/19 04/03/19 04/03/19 18:59 06:59 18:59 Intake Total 340 Output Total 300 Balance 40 Weight 39.6 kg 37.9 kg Intake: Oral 340 Output: Urine 300 Other: Voiding Method Toilet Toilet Toilet # Voids 1 1 # Bowel Movements 1 - Exam GENERAL EXAM: Alert, frail, cachectic 74-year-old female, on room air, active, comfortable in no apparent distress. HEAD: Normocephalic. EYES: Normal reaction of pupils, equal size. NOSE: Clear with pink turbinates. THROAT: No erythema or exudates. NECK: No masses, no JVD. CHEST: No chest wall deformity. LUNGS: Equal air entry with few scattered rhonchi, crackles in the bases. CVS: S1 and S2 normal with no audible murmur, regular rhythm. ABDOMEN: No hepatosplenomegaly, normal bowel sounds, no guarding or rigidity. SPINE: No scoliosis or deformity SKIN: No rashes CENTRAL NERVOUS SYSTEM: No focal deficits, tone is normal in all 4 extremities. EXTREMITIES: There is no peripheral edema. No clubbing, no cyanosis. Peripheral pulses are intact. - Labs CBC & Chem 7: 04/03/19 05:09 04/03/19 05:09 Labs: Abnormal Lab Results - Last 24 Hours (Table) 04/03/19 04/03/19 Range/Units 05:09 05:09 Plt Count 498 H (150-450) k/uL Neutrophils # 8.3 H (1.3-7.7) k/uL Lymphocytes # 0.8 L (1.0-4.8) k/uL BUN 38 H (7-17) mg/dL Creatinine 1.66 H (0.52-1.04) mg/dL Glucose 140 H (74-99) mg/dL AST 13 L (14-36) U/L Alkaline Phosphatase 133 H (38-126) U/L Total Protein 5.3 L (6.3-8.2) g/dL Albumin 2.9 L (3.5-5.0) g/dL Microbiology - Last 24 Hours (Table) 04/01/19 17:58 Blood Culture - Preliminary Blood No Growth after 24 hours 04/01/19 13:00 Blood Culture - Preliminary Blood No Growth after 24 hours Assessment and Plan Assessment: #1 Acute right-sided pleuritic type chest pain secondary to bibasilar pneumonia, community-acquired. #2 Chronic kidney disease. #3 Previous history of DVT. #4 GERD. #5 Degenerative joint disease. #6 Migraine cephalgia. #7 History of pancreatitis. #8 History of TIA. #9 Spinal stenosis. #10 Anxiety/depression with panic disorder. Plan: The patient was seen and evaluated by Dr. Sanchez. Echocardiogram and Dopplers reviewed. Doubt PE. Continue current treatment plan for basilar pneumonia. Increase her activity as tolerated. Probable discharge in the a.m. We'll continue to follow and make further recommendations based on her clinical status. I, the cosigning physician, performed a history & physical examination of the patient. Lungs sounds few scattered rhonchi, crackles in the bases. Maintaining good O2 saturations in the 90s on room air. I discussed the assessment and plan of care with my nurse practitioner, Leyla Grace. I attest to the above note as dictated by her.
[2019-04-03] MEDS ORDERED: guaiFENesin-Coden 100-10MG/5ML 10 ML CUP PO PRN (14:54)
--- NOTE | 2019-04-03 14:58 | P.PN ---
Subjective Progress Note Date: 04/03/19 Louise Sutton is a 74-year-old female patient of Dr. Eli, who presented to [facility] emergency room with a chief complaint of cough, shortness of breath, and the right sided chest pain, patient stated that her symptoms started two weeks ago and has been worsening, she denies ever smoking in the past. She was evaluated in the emergency room, she was found to have tachycardia and tachypnea, no fever, chest x-ray revealed patchy infiltrates in both lung calixto suggestive of pneumonia, she was started on IV antibiotic and was admitted to telemetry floor. D-dimer was elevated on presentation, computed tomography scan angiogram of the chest could not be done due to known history of stage IV chronic kidney disease, VQ scan was done and was indeterminate. She was started on Lovenox 40 mg subcu twice daily until further evaluation is done. Patient stated that she had one blood clot in her right leg more than 30 years ago when she was on control pills, otherwise she denies any history of blood clots in the past. She denies any known history of cancer. She states that for the last 2-3 months she has been losing weight. on 04/03/2019 patient was seen and examined on the telemetry floor she is alert and oriented 3 in no apparent distress she is still complaining of cough and complaining of ct pain on the right side witation and with cough she is and able to produce any sputum otherwise she denies any complaints there is no fever or chills no headache or dizziness no nausea or vomiting no abdominal pain no diarrhea no burning with urination no frequency or urgency and no hematuria. Bilateral ower extremity Doppler negative for DVT. Objective - Vital Signs Vital signs: Vital Signs Temp 97.4 F L 04/03/19 11:54 Pulse 100 04/03/19 11:54 Resp 18 04/03/19 11:54 BP 129/81 04/03/19 11:54 Pulse Ox 98 04/03/19 11:54 Intake & Output 04/02/19 04/03/19 04/03/19 18:59 06:59 18:59 Intake Total 340 540 Output Total 300 300 Balance 40 240 Weight 39.6 kg 37.9 kg Intake: Intake, IV Titration 300 Amount Azithromycin 500 mg In 250 Sodium Chloride 0.9% 250 ml @ 250 mls/hr IVPB DAILY [facility] Rx#:[id number] cefTRIAXone 1 gm In 50 Sodium Chloride 0.9% 50 ml @ 100 mls/hr IVPB Q24HR [facility] Rx#:[id number] Oral 340 240 Output: Urine 300 300 Other: Voiding Method Toilet Toilet Toilet # Voids 1 1 1 # Bowel Movements 1 - Exam In general patient is alert and oriented 3 in no apparent distress HEENT head normocephalic and atraumatic Neck is supple no JVD no goiter no lymphadenopathy Chest exam reveals a scattered crackles in both lung calixto no wheezing Cardiac exam reveals regular heart sounds S1 and S2 with tachycardia, no gallops no murmurs Abdomen is soft nontender no organomegaly was normal bowel sounds Extremity exam reveals no edema no cyanosis or clubbing Neurological examination reveals no gross focal deficits - Labs CBC & Chem 7: 04/03/19 05:09 04/03/19 05:09 Labs: Abnormal Lab Results - Last 24 Hours (Table) 04/03/19 04/03/19 Range/Units 05:09 05:09 Plt Count 498 H (150-450) k/uL Neutrophils # 8.3 H (1.3-7.7) k/uL Lymphocytes # 0.8 L (1.0-4.8) k/uL BUN 38 H (7-17) mg/dL Creatinine 1.66 H (0.52-1.04) mg/dL Glucose 140 H (74-99) mg/dL AST 13 L (14-36) U/L Alkaline Phosphatase 133 H (38-126) U/L Total Protein 5.3 L (6.3-8.2) g/dL Albumin 2.9 L (3.5-5.0) g/dL Microbiology - Last 24 Hours (Table) 04/01/19 17:58 Blood Culture - Preliminary Blood No Growth after 24 hours 04/01/19 13:00 Blood Culture - Preliminary Blood No Growth after 24 hours Assessment and Plan Plan: #1 bilateral patchy infiltrate suggestive of pneumonia patient is started on IV Rocephin and IV Zithromax Will monitor closely, will add Mucinex, and obtain a sputum sample for culture and Gram stain #2 elevated d-dimer, and symptoms suggestive of possible pulmonary embolism, including tachycardia tachypnea and pleuritic chest pain, VQ scan was done and was indeterminate, at this time patient is covered with subcu Lovenox at therapeutic dose of 1 mg/kg gram twice a day, will check bilateral lower extremity Doppler, and may repeat VQ scan when pneumonia is improving to assess if there is any evidence of pulmonary embolism. #3 chest pain, pleuritic in nature troponin level negative, EKG reveals tachycardia without any acute ischemic changes, cardiology consultation requested. #4 known history of stage IV chronic kidney disease, maintained on Lasix and Zaroxolyn, creatinine on presentation 1.75, at this time Zaroxolyn is on hold Will monitor kidney function closely #5 hypokalemia, we will replace potassium carefully due to abnormal kidney function #6 underlying history of depression on multiple psychiatric medications, at this time will hold Remeron due to interaction was Zithromax, will resume Remeron when possible. #7 underlying history of hypertension, with borderline control, will monitor blood pressure and adjust medications as needed #8 underlying history of migraine headache #9 underlying history of chronic pain maintained on fentanyl patch, and [place] medication were resumed. #10 poor oral intake with significant weight loss over the last 2 month, will consult dietitian. At this time medication and labs were reviewed plan as above still complaining of continuous cough and chest pain with cough and shortness of breath with any activity will add guaifenesin is seen with codeine, recheck chest x-ray in a.m. Pulmonary and cardiology consultation requested
[2019-04-03] MEDS: LORATADINE 10 MG TAB PO SCH (20:05)
[2019-04-04] MEDS: HYDROmorphone 0.5 MG/0.5 ML SYRINGE IVP PRN ×5 (01:39→21:23)
[2019-04-04] MEDS: methylPREDNISolone SOD SUCCI 40 MG/ML 1 ML VIAL IV SCH ×3 (05:26→17:21)
[2019-04-04] MEDS: PANTOPRAZOLE 40 MG TABLET PO SCH (05:26)
[2019-04-04] MEDS: LEVOTHYROXINE 100 MCG TAB PO SCH (05:26)
[2019-04-04 06:12] LABS: Basophils # (A) 0.1 k/uL (0-0.2); Basophils % (A) 0 %; Eosinophils % (A) 0 %; HCT 39.8 % (34.0-46.0); HGB 12.2 gm/dL (11.4-16.0); Hypochromasia Slight; Lymphocytes # (A) 1.1 k/uL (1.0-4.8); Lymphocytes % (A) 7 %; MCH 30.7 pg (25.0-35.0); MCHC 30.6 g/dL (31.0-37.0); MCV 100.3 fL (80.0-100.0); Macrocytosis Slight; Monocytes # (A) 0.3 k/uL (0-1.0); Monocytes % (A) 2 %; Neutrophils # (A) 14.7 k/uL (1.3-7.7); Neutrophils % (A) 91 %; Platelet Count 565 k/uL (150-450); RBC 3.96 m/uL (3.80-5.40); RDW 14.2 % (11.5-15.5); WBC 16.1 k/uL (3.8-10.6)
[2019-04-04 06:24] LABS: Calcium 9.2 mg/dL (8.4-10.2); Potassium 4.1 mmol/L (3.5-5.1); Total Bilirubin 0.4 mg/dL (0.2-1.3); Total Protein 5.4 g/dL (6.3-8.2)
[2019-04-04] MEDS: HYDROcodone/APAP 5-325MG 1 EACH TAB PO PRN ×2 (07:37→13:37)
[2019-04-04] MEDS: AZITHROMYCIN 500 MG TAB PO SCH (07:54)
[2019-04-04] MEDS: busPIRone HCl 10 MG TAB PO SCH ×2 (07:54→21:22)
[2019-04-04] MEDS: FERROUS SULFATE 325 MG TAB PO SCH (07:54)
[2019-04-04] MEDS: THIAMINE 100 MG TAB PO SCH (07:55)
[2019-04-04] MEDS: FUROSEMIDE 20 MG TAB PO SCH (07:55)
[2019-04-04] MEDS: ENOXAPARIN 40 MG/0.4 ML SYRINGE SQ SCH (07:55)
[2019-04-04] MEDS: FOLIC ACID 1 MG TAB PO SCH (07:55)
[2019-04-04] MEDS: POTASSIUM CHLORIDE ER 10 MEQ TAB.ER.PRT PO SCH (07:55)
[2019-04-04] MEDS: DULoxetine HCL 60 MG CAPSULE.DR PO SCH (07:55)
[2019-04-04] MEDS: FLUTICASONE 50MCG/SPRAY NASAL 16GM EA NOSTRIL SCH ×2 (07:56→21:23)
[2019-04-04] MEDS: buPROPion XL 300 MG TAB.ER.24H PO SCH (07:57)
[2019-04-04] MEDS: guaiFENesin 600 MG TABLET.ER PO SCH ×2 (07:57→21:22)
--- NOTE | 2019-04-04 08:09 | XR ---
EXAMINATION TYPE: XR chest 2V DATE OF EXAM: 04/04/2019 COMPARISON: Prior chest x-ray 04/02/2019 HISTORY: Follow-up pneumonia TECHNIQUE: Frontal and lateral views of the chest are obtained. FINDINGS: Findings are similar to prior exam. No evident pneumothorax or pleural effusion. Heart is stable. There are overlying cardiac leads. Pulmonary vascularity and ruiz not significantly changed. Old left clavicular fracture is healed. There may be some improvement in aeration within the lungs. IMPRESSION: Improved aeration.
[2019-04-04] MEDS: BUDESONIDE 1 MG/2 ML NEBU INHALATION SCH ×2 (08:41→19:07)
[2019-04-04] MEDS: ALBUTEROL NEBULIZED 2.5 MG/3 ML INHALATION SCH ×4 (08:42→19:07)
[2019-04-04] MEDS: FORMOTEROL FUMARATE 20 MCG/2 ML NEBU INHALATION SCH ×2 (08:42→19:26)
[2019-04-04] MEDS: SUMAtriptan SUCCINATE 50 MG TAB PO PRN (08:45)
[2019-04-04] MEDS: ONDANSETRON 4 MG/2 ML VIAL IVP PRN (09:51)
--- NOTE | 2019-04-04 10:25 | P.PN ---
Subjective Progress Note Date: 04/04/19 Louise Sutton is a 74-year-old female patient of Dr. Eli, who presented to [facility] emergency room with a chief complaint of cough, shortness of breath, and the right sided chest pain, patient stated that her symptoms started two weeks ago and has been worsening, she denies ever smoking in the past. She was evaluated in the emergency room, she was found to have tachycardia and tachypnea, no fever, chest x-ray revealed patchy infiltrates in both lung calixto suggestive of pneumonia, she was started on IV antibiotic and was admitted to telemetry floor. D-dimer was elevated on presentation, computed tomography scan angiogram of the chest could not be done due to known history of stage IV chronic kidney disease, VQ scan was done and was indeterminate. She was started on Lovenox 40 mg subcu twice daily until further evaluation is done. Patient stated that she had one blood clot in her right leg more than 30 years ago when she was on control pills, otherwise she denies any history of blood clots in the past. She denies any known history of cancer. She states that for the last 2-3 months she has been losing weight. on 04/03/2019 patient was seen and examined on the telemetry floor she is alert and oriented 3 in no apparent distress she is still complaining of cough and complaining of ct pain on the right side witation and with cough she is and able to produce any sputum otherwise she denies any complaints there is no fever or chills no headache or dizziness no nausea or vomiting no abdominal pain no diarrhea no burning with urination no frequency or urgency and no hematuria. Bilateral ower extremity Doppler negative for DVT. on 04/04/2019 patient is alert and oriented 3.today patient is complaining of headache that she states is similar to her migraines. Patient maintained on Imitrex. she also having associated nausea will order Zofran. Awaiting cardiology consult due to chest pain likely associated with pleuritic pain. Patient states shortness of breath has improved. Patient denies nausea vomiting or diarrhea. Patient denies any urinary burning or frequency Objective - Vital Signs Vital signs: Vital Signs Temp 98.8 F 04/04/19 08:00 Pulse 88 04/04/19 09:08 Resp 20 04/04/19 08:00 BP 116/76 04/04/19 08:00 Pulse Ox 98 04/04/19 08:00 Intake & Output 04/03/19 04/04/19 04/04/19 18:59 06:59 18:59 Intake Total 540 Output Total 600 Balance -60 Weight 39 kg Intake: Intake, IV Titration 300 Amount Azithromycin 500 mg In 250 Sodium Chloride 0.9% 250 ml @ 250 mls/hr IVPB DAILY [facility] Rx#:[id number] cefTRIAXone 1 gm In 50 Sodium Chloride 0.9% 50 ml @ 100 mls/hr IVPB Q24HR [facility] Rx#:[id number] Oral 240 Output: Urine 600 Other: Voiding Method Toilet # Voids 1 2 0 - Exam In general patient is alert and oriented 3 in no apparent distress HEENT head normocephalic and atraumatic Neck is supple no JVD no goiter no lymphadenopathy Chest exam reveals a scattered crackles in both lung calixto no wheezing Cardiac exam reveals regular heart sounds S1 and S2 with tachycardia, no gallops no murmurs Abdomen is soft nontender no organomegaly was normal bowel sounds Extremity exam reveals no edema no cyanosis or clubbing Neurological examination reveals no gross focal deficits - Labs CBC & Chem 7: 04/04/19 05:45 04/04/19 05:45 Labs: Abnormal Lab Results - Last 24 Hours (Table) 04/04/19 04/04/19 Range/Units 05:45 05:45 WBC 16.1 H (3.8-10.6) k/uL MCV 100.3 H (80.0-100.0) fL MCHC 30.6 L (31.0-37.0) g/dL Plt Count 565 H (150-450) k/uL Neutrophils # 14.7 H (1.3-7.7) k/uL BUN 45 H (7-17) mg/dL Creatinine 1.52 H (0.52-1.04) mg/dL Glucose 128 H (74-99) mg/dL Total Protein 5.4 L (6.3-8.2) g/dL Albumin 3.0 L (3.5-5.0) g/dL Microbiology - Last 24 Hours (Table) 04/01/19 17:58 Blood Culture - Preliminary Blood No Growth after 48 hours 04/01/19 13:00 Blood Culture - Preliminary Blood No Growth after 48 hours Assessment and Plan Assessment: #1 bilateral patchy infiltrate suggestive of pneumonia patient is started on IV Rocephin and IV Zithromax Will monitor closely, will add Mucinex, and obtain a sputum sample for culture and Gram stain. pulmonary services are following.repeat chest x-ray completed showing improved aeration.patient started on IV Solu-Medrol per pulmonary #2 elevated d-dimer, and symptoms suggestive of possible pulmonary embolism, i ncluding tachycardia tachypnea and pleuritic chest pain, VQ scan was done and was indeterminate, at this time patient is covered with subcu Lovenox at therapeutic dose of 1 mg/kg gram twice a day, will check bilateral lower extremity Doppler, and may repeat VQ scan when pneumonia is improving to assess if there is any evidence of pulmonary embolism.per pulmonary services doubt pulmonary embolism continue current treatment plan for basilar pneumonia. #3 chest pain, pleuritic in nature troponin level negative, EKG reveals tachycardia without any acute ischemic changes, cardiology consultation r equested. #4 known history of stage IV chronic kidney disease, maintained on Lasix and Zaroxolyn, creatinine on presentation 1.75, at this time Zaroxolyn is on hold Will monitor kidney function closely. crit and 1.5 to this does appear baseline for patient #5 hypokalemia, we will replace potassium carefully due to abnormal kidney function. resolved #6 underlying history of depression on multiple psychiatric medications, at this time will hold Remeron due to interaction was Zithromax, will resume Remeron when possible. #7 underlying history of hypertension, with borderline control, will monitor blood pressure and adjust medications as needed #8 underlying history of migraine headache. patient maintained on Imitrex #9 underlying history of chronic pain maintained on fentanyl patch, and [place] medication were resumed. #10 poor oral intake with significant weight loss over the last 2 month, will consult dietitian. DVT prophylaxis Lovenox. GI prophylaxis Protonix still complaining of continuous cough and chest pain with cough and shortness of breath with any activity will add guaifenesin is seen with codeine. Pulmonary and cardiology consultation requested I performed an examination of the patient and discussed their management with the Nurse Practitioner. I have reviewed the Nurse Practitioner's notes and agree with the documented findings and plan of care
--- NOTE | 2019-04-04 10:28 | P.PN ---
Subjective Progress Note Date: 04/04/19 date evaluation of 04/04/2019 the patient is feeling better. The patient is feeling less short of breath compared to yesterday. Follow-up chest exit was done shows improvement in aeration of the lungs bilaterally. No fever. No chills. She is coughing unable to bring up much of sputum pH is on a combi nation of Rocephin and Zithromax. She is also on IV Solu-Medrol 40 mg every 6 hours and she is on DuoNeb nebulized treatments around the clock. She is receiving Pulmicort Respules and Perforomist. She has no thrush. No throat pain. She has a diminished appetite. She states that she's been losing weight. Her BMI is down to 15.7. Objective - Vital Signs Vital signs: Vital Signs Temp 98.8 F 04/04/19 08:00 Pulse 88 04/04/19 09:08 Resp 20 04/04/19 08:00 BP 116/76 04/04/19 08:00 Pulse Ox 98 04/04/19 08:00 Intake & Output 04/03/19 04/04/19 04/04/19 18:59 06:59 18:59 Intake Total 540 Output Total 600 Balance -60 Weight 39 kg Intake: Intake, IV Titration 300 Amount Azithromycin 500 mg In 250 Sodium Chloride 0.9% 250 ml @ 250 mls/hr IVPB DAILY [facility] Rx#:[id number] cefTRIAXone 1 gm In 50 Sodium Chloride 0.9% 50 ml @ 100 mls/hr IVPB Q24HR [facility] Rx#:[id number] Oral 240 Output: Urine 600 Other: Voiding Method Toilet # Voids 1 2 0 - Exam GENERAL EXAM: Alert, frail, cachectic 74-year-old female, on room air, active, comfortable in no apparent distress. HEAD: Normocephalic. EYES: Normal reaction of pupils, equal size. NOSE: Clear with pink turbinates. THROAT: No erythema or exudates. NECK: No masses, no JVD. CHEST: No chest wall deformity. LUNGS: Equal air entry with few scattered rhonchi, crackles in the bases. CVS: S1 and S2 normal with no audible murmur, regular rhythm. ABDOMEN: No hepatosplenomegaly, normal bowel sounds, no guarding or rigidity. SPINE: No scoliosis or deformity SKIN: No rashes CENTRAL NERVOUS SYSTEM: No focal deficits, tone is normal in all 4 extremities. EXTREMITIES: There is no peripheral edema. No clubbing, no cyanosis. Peripheral pulses are intact. - Labs CBC & Chem 7: 04/04/19 05:45 04/04/19 05:45 Labs: Abnormal Lab Results - Last 24 Hours (Table) 04/04/19 04/04/19 Range/Units 05:45 05:45 WBC 16.1 H (3.8-10.6) k/uL MCV 100.3 H (80.0-100.0) fL MCHC 30.6 L (31.0-37.0) g/dL Plt Count 565 H (150-450) k/uL Neutrophils # 14.7 H (1.3-7.7) k/uL BUN 45 H (7-17) mg/dL Creatinine 1.52 H (0.52-1.04) mg/dL Glucose 128 H (74-99) mg/dL Total Protein 5.4 L (6.3-8.2) g/dL Albumin 3.0 L (3.5-5.0) g/dL Microbiology - Last 24 Hours (Table) 04/01/19 17:58 Blood Culture - Preliminary Blood No Growth after 48 hours 04/01/19 13:00 Blood Culture - Preliminary Blood No Growth after 48 hours Assessment and Plan Plan: #1 Acute right-sided pleuritic type chest pain secondary to bibasilar pneumonia, community-acquired. #2 Chronic kidney disease. #3 Previous history of DVT. #4 GERD. #5 Degenerative joint disease. #6 Migraine cephalgia. #7 History of pancreatitis. #8 History of TIA. #9 Spinal stenosis. #10 Anxiety/depression with panic disorder. plan Reviewed the chest x-ray. There is improved aeration. The patient is clinically improving. We'll continue same treatment and will follow. Continue antibiotics. Continue IV Solu-Medrol. Creatinine is stable. No fever. No chills. No hemoptysis. Overall better.
--- NOTE | 2019-04-04 12:07 | CDI ---
Documentation Clarification Form Date: 04/04/2019 11:58:54 AM From: Jessy Levi RN, CCDS Admit Date: 04/01/2019 2:48:00 PM Patient Name: Louise Sutton Visit Number: [id number] ATTENTION: The Clinical Documentation Specialists (CDI) and [facility] Coding Staff appreciate your assistance in clarifying documentation. Please respond to the clarification below the line at the bottom and electronically sign. The CDI & [facility] Coding staff will review the response and follow-up if needed. Please note: Queries are made part of the Legal Health Record. If you have any questions, please contact the author of this message via ITS. Dr. Palmer Desir History/Risk Factors: COPD, Asthma, GERD, constipation, low CA+ Clinical Indicators: 04/04 Attending progress note: poor oral intake with significant weight loss over the last 2 month, will consult dietitian." 04/04 Pulmonary Progress note: "Alert, frail, cachectic 74-year-old female, on room air, active, comfortable in no apparent distress. She has a diminished appetite." Labs: total Protein 5.3/5.4, Albumin 3.1/2.9/3, elevated BUN and Creatinine Current BMI: 15.7 : Treatment: Dietary Consult: Completed 04/02/19 Supplements: Benoprotein TID Lab monitoring: AM daily Remeron PO In your professional opinion, can you please clarify if these findings signify one of the following conditions? Mild Protein-Calorie Malnutrition Moderate Protein-Calorie Malnutrition Severe Protein-Calorie Malnutrition Other condition, please specify Unable to determine (Last Revision: October 2018) Moderate Protein-Calorie Malnutrition MTDD
[2019-04-04] MEDS: ALPRAZolam 0.5 MG TAB PO SCH (21:22)
[2019-04-04] MEDS: LORATADINE 10 MG TAB PO SCH (21:22)
[2019-04-05] MEDS: methylPREDNISolone SOD SUCCI 40 MG/ML 1 ML VIAL IV SCH ×5 (00:28→23:37)
[2019-04-05] MEDS: HYDROcodone/APAP 5-325MG 1 EACH TAB PO PRN ×3 (00:28→18:19)
[2019-04-05] MEDS: LEVOTHYROXINE 100 MCG TAB PO SCH ×2 (04:57→04:58)
[2019-04-05] MEDS: HYDROmorphone 0.5 MG/0.5 ML SYRINGE IVP PRN ×2 (04:58→14:31)
[2019-04-05] MEDS: PANTOPRAZOLE 40 MG TABLET PO SCH (05:06)
[2019-04-05 06:31] LABS: Basophils # (A) 0.1 k/uL (0-0.2); Basophils % (A) 1 %; Eosinophils % (A) 0 %; HCT 39.7 % (34.0-46.0); Hypochromasia Slight; Lymphocytes # (A) 0.8 k/uL (1.0-4.8); Lymphocytes % (A) 6 %; MCHC 30.1 g/dL (31.0-37.0); MCV 99.6 fL (80.0-100.0); Mean Platelet Volume 7.3; Monocytes # (A) 0.3 k/uL (0-1.0); Monocytes % (A) 2 %; Neutrophils # (A) 12.3 k/uL (1.3-7.7); Neutrophils % (A) 91 %; Platelet Count 543 k/uL (150-450); RBC 3.98 m/uL (3.80-5.40); RDW 14.3 % (11.5-15.5); WBC 13.5 k/uL (3.8-10.6)
[2019-04-05 06:39] LABS: Albumin 3.1 g/dL (3.5-5.0); Potassium 4.6 mmol/L (3.5-5.1); Total Bilirubin 0.5 mg/dL (0.2-1.3); Total Protein 5.4 g/dL (6.3-8.2)
[2019-04-05] MEDS: FORMOTEROL FUMARATE 20 MCG/2 ML NEBU INHALATION SCH ×2 (07:39→20:25)
[2019-04-05] MEDS: ALBUTEROL NEBULIZED 2.5 MG/3 ML INHALATION SCH ×4 (07:39→20:25)
[2019-04-05] MEDS: BUDESONIDE 1 MG/2 ML NEBU INHALATION SCH ×2 (07:39→20:25)
[2019-04-05] MEDS: FLUTICASONE 50MCG/SPRAY NASAL 16GM EA NOSTRIL SCH ×2 (08:34→20:54)
[2019-04-05] MEDS: POTASSIUM CHLORIDE ER 10 MEQ TAB.ER.PRT PO SCH (08:34)
[2019-04-05] MEDS: SUMAtriptan SUCCINATE 50 MG TAB PO PRN (08:34)
[2019-04-05] MEDS: guaiFENesin 600 MG TABLET.ER PO SCH ×2 (08:35→20:54)
[2019-04-05] MEDS: buPROPion XL 300 MG TAB.ER.24H PO SCH (08:35)
[2019-04-05] MEDS: FUROSEMIDE 20 MG TAB PO SCH (08:36)
[2019-04-05] MEDS: ENOXAPARIN 40 MG/0.4 ML SYRINGE SQ SCH (08:36)
[2019-04-05] MEDS: FERROUS SULFATE 325 MG TAB PO SCH (08:36)
[2019-04-05] MEDS: AZITHROMYCIN 500 MG TAB PO SCH (08:36)
[2019-04-05] MEDS: FOLIC ACID 1 MG TAB PO SCH (08:36)
[2019-04-05] MEDS: THIAMINE 100 MG TAB PO SCH (08:36)
[2019-04-05] MEDS: busPIRone HCl 10 MG TAB PO SCH ×2 (08:36→20:54)
[2019-04-05] MEDS: DULoxetine HCL 60 MG CAPSULE.DR PO SCH (08:36)
--- NOTE | 2019-04-05 10:42 | P.PN ---
Subjective Progress Note Date: 04/05/19 Louise Sutton is a 74-year-old female patient of Dr. Eli, who presented to [facility] emergency room with a chief complaint of cough, shortness of breath, and the right sided chest pain, patient stated that her symptoms started two weeks ago and has been worsening, she denies ever smoking in the past. She was evaluated in the emergency room, she was found to have tachycardia and tachypnea, no fever, chest x-ray revealed patchy infiltrates in both lung calixto suggestive of pneumonia, she was started on IV antibiotic and was admitted to telemetry floor. D-dimer was elevated on presentation, computed tomography scan angiogram of the chest could not be done due to known history of stage IV chronic kidney disease, VQ scan was done and was indeterminate. She was started on Lovenox 40 mg subcu twice daily until further evaluation is done. Patient stated that she had one blood clot in her right leg more than 30 years ago when she was on control pills, otherwise she denies any history of blood clots in the past. She denies any known history of cancer. She states that for the last 2-3 months she has been losing weight. on 04/03/2019 patient was seen and examined on the telemetry floor she is alert and oriented 3 in no apparent distress she is still complaining of cough and complaining of ct pain on the right side witation and with cough she is and able to produce any sputum otherwise she denies any complaints there is no fever or chills no headache or dizziness no nausea or vomiting no abdominal pain no diarrhea no burning with urination no frequency or urgency and no hematuria. Bilateral ower extremity Doppler negative for DVT. on 04/04/2019 patient is alert and oriented 3.today patient is complaining of headache that she states is similar to her migraines. Patient maintained on Imitrex. she also having associated nausea will order Zofran. Awaiting cardiology consult due to chest pain likely associated with pleuritic pain. Patient states shortness of breath has improved. Patient denies nausea vomiting or diarrhea. Patient denies any urinary burning or frequency on 04/05/2019patient is alert and oriented 3. Patient is feeling significantly improved. Repeat chest x-ray did show improved aeration. Headache and nausea has resolved. Cardiology services ruled out acute coronary event chest pain pleuritic. At this time patient denies chest pain. Patient's shortness of breath is improving. Patient denies nausea vomiting or diarrhea. Patient denies any urinary burning or frequency. Objective - Vital Signs Vital signs: Vital Signs Temp 97.3 F L 04/05/19 05:02 Pulse 88 04/05/19 08:03 Resp 20 04/05/19 08:00 BP 121/63 04/05/19 08:00 Pulse Ox 98 04/05/19 08:00 Intake & Output 04/04/19 04/05/19 04/05/19 18:59 06:59 18:59 Intake Total 280 300 Balance 280 300 Weight 39 kg 38.8 kg Intake: Oral 280 300 Other: # Voids 0 2 - Exam In general patient is alert and oriented 3 in no apparent distress HEENT head normocephalic and atraumatic Neck is supple no JVD no goiter no lymphadenopathy Chest exam reveals a scattered crackles in both lung calixto no wheezing Cardiac exam reveals regular heart sounds S1 and S2 with tachycardia, no gallops no murmurs Abdomen is soft nontender no organomegaly was normal bowel sounds Extremity exam reveals no edema no cyanosis or clubbing Neurological examination reveals no gross focal deficits - Labs CBC & Chem 7: 04/05/19 05:23 04/05/19 05:23 Labs: Abnormal Lab Results - Last 24 Hours (Table) 04/02/19 04/05/19 04/05/19 Range/Units 04:53 05:23 05:23 WBC 13.5 H (3.8-10.6) k/uL MCHC 30.1 L (31.0-37.0) g/dL Plt Count 543 H (150-450) k/uL Neutrophils # 12.3 H (1.3-7.7) k/uL Lymphocytes # 0.8 L (1.0-4.8) k/uL BUN 52 H (7-17) mg/dL Creatinine 1.60 H (0.52-1.04) mg/dL Glucose 132 H (74-99) mg/dL Total Protein 5.4 L (6.3-8.2) g/dL Albumin 3.1 L (3.5-5.0) g/dL Procalcitonin 0.33 H (0.02-0.09) ng/mL Microbiology - Last 24 Hours (Table) 04/01/19 17:58 Blood Culture - Preliminary Blood No Growth after 72 hours 04/01/19 13:00 Blood Culture - Preliminary Blood No Growth after 72 hours Assessment and Plan Assessment: #1 bilateral patchy infiltrate suggestive of pneumonia patient is started on IV Rocephin and IV Zithromax Will monitor closely, will add Mucinex, and obtain a sputum sample for culture and Gram stain. pulmonary services are following.repeat chest x-ray completed showing improved aeration.patient started on IV Solu-Medrol per pulmonary. repeat chest x-ray has been ordered for a.m. per pulmonary #2 elevated d-dimer, and symptoms suggestive of possible pulmonary embolism, including tachycardia tachypnea and pleuritic chest pain, VQ scan was done and was indeterminate, at this time patient is covered with subcu Lovenox at therapeutic dose of 1 mg/kg gram twice a day, will check bilateral lower extremity Doppler, and may repeat VQ scan when pneumonia is improving to assess if there is any evidence of pulmonary embolism.per pulmonary services doubt pulmonary embolism continue current treatment plan for basilar pneumonia. #3 chest pain, pleuritic in nature troponin level negative, EKG reveals tachycardia without any acute ischemic changes, cardiology consultation requested.per cardiology chest pain very pleuritic in nature atypical for acute coronary syndrome troponins negative. 2-D echo completed showing an EF of 55-60% #4 known history of stage IV chronic kidney disease, maintained on Lasix and Zaroxolyn, creatinine on presentation 1.75, at this time Zaroxolyn is on hold Will monitor kidney function closely. creat and 1.5 to this does appear baseline for patient #5 hypokalemia, we will replace potassium carefully due to abnormal kidney function. resolved #6 underlying history of depression on multiple psychiatric medications, at this time will hold Remeron due to interaction was Zithromax, will resume Remeron when possible. #7 underlying history of hypertension, with borderline control, will monitor blood pressure and adjust medications as needed #8 underlying history of migraine headache. patient maintained on Imitrex #9 underlying history of chronic pain maintained on fentanyl patch, and [place] medication were resumed. #10 poor oral intake with significant weight loss over the last 2 month, will consult dietitian. #11. Insomnia. Remeron currently on hold due to interaction with Zithromax. Xanax added DVT prophylaxis Lovenox. GI prophylaxis Protonix I performed an examination of the patient and discussed their management with the Nurse Practitioner. I have reviewed the Nurse Practitioner's notes and agree with the documented findings and plan of care
--- NOTE | 2019-04-05 11:02 | P.PN ---
Subjective Progress Note Date: 04/05/19 on 04/05/2019 I'm seeing the patient is doing much better and she was able to get up by herself and sit up on a chair. She got much better energy and her. She is less short of breath. The cough and congestion is also improving. She remains on IV Solu-Medrol. She remains on Rocephin and azithromycin DuoNeb nebulized treatments around the clock. She is also on accommodation Perforomist and Pulmicort overestimates twice a day. No chest pain. She still has some crackles in the lung bases bilaterally. Tolerating her diet. No nausea. No vomiting. No diarrhea. No abdominal pain. No altered mentation. Objective - Vital Signs Vital signs: Vital Signs Temp 97.3 F L 04/05/19 05:02 Pulse 88 04/05/19 08:03 Resp 20 04/05/19 08:00 BP 121/63 04/05/19 08:00 Pulse Ox 98 04/05/19 08:00 Intake & Output 04/04/19 04/05/19 04/05/19 18:59 06:59 18:59 Intake Total 280 300 Balance 280 300 Weight 39 kg 38.8 kg Intake: Oral 280 300 Other: # Voids 0 2 - Exam GENERAL EXAM: Alert, frail, cachectic 74-year-old female, on room air, active, comfortable in no apparent distress. HEAD: Normocephalic. EYES: Normal reaction of pupils, equal size. NOSE: Clear with pink turbinates. THROAT: No erythema or exudates. NECK: No masses, no JVD. CHEST: No chest wall deformity. LUNGS: Equal air entry with few scattered rhonchi, crackles in the bases. CVS: S1 and S2 normal with no audible murmur, regular rhythm. ABDOMEN: No hepatosplenomegaly, normal bowel sounds, no guarding or rigidity. SPINE: No scoliosis or deformity SKIN: No rashes CENTRAL NERVOUS SYSTEM: No focal deficits, tone is normal in all 4 extremities. EXTREMITIES: There is no peripheral edema. No clubbing, no cyanosis. Peripheral pulses are intact. - Labs CBC & Chem 7: 04/05/19 05:23 04/05/19 05:23 Labs: Abnormal Lab Results - Last 24 Hours (Table) 04/02/19 04/05/19 04/05/19 Range/Units 04:53 05:23 05:23 WBC 13.5 H (3.8-10.6) k/uL MCHC 30.1 L (31.0-37.0) g/dL Plt Count 543 H (150-450) k/uL Neutrophils # 12.3 H (1.3-7.7) k/uL Lymphocytes # 0.8 L (1.0-4.8) k/uL BUN 52 H (7-17) mg/dL Creatinine 1.60 H (0.52-1.04) mg/dL Glucose 132 H (74-99) mg/dL Total Protein 5.4 L (6.3-8.2) g/dL Albumin 3.1 L (3.5-5.0) g/dL Procalcitonin 0.33 H (0.02-0.09) ng/mL Microbiology - Last 24 Hours (Table) 04/01/19 17:58 Blood Culture - Preliminary Blood No Growth after 72 hours 04/01/19 13:00 Blood Culture - Preliminary Blood No Growth after 72 hours Assessment and Plan Plan: #1 Acute right-sided pleuritic type chest pain secondary to bibasilar pneumonia, community-acquired.clinically the patient is improving #2 Chronic kidney disease.the apnea remains stable #3 Previous history of DVT. #4 GERD. #5 Degenerative joint disease. #6 Migraine cephalgia. #7 History of pancreatitis. #8 History of TIA. #9 Spinal stenosis. #10 Anxiety/depression with panic disorder. plan improving. Chest x-ray tomorrow. Possibly home within the next 24-48 hours if she continues to show signs of improvement. Continue the bronchodilators. Continue the antibiotics. Continue the steroids.
[2019-04-05] MEDS: ALPRAZolam 0.5 MG TAB PO SCH (20:54)
[2019-04-05] MEDS: LORATADINE 10 MG TAB PO SCH (20:54)
[2019-04-06] MEDS: HYDROcodone/APAP 5-325MG 1 EACH TAB PO PRN ×3 (03:23→23:31)
[2019-04-06] MEDS: HYDROmorphone 0.5 MG/0.5 ML SYRINGE IVP PRN ×4 (05:22→20:04)
[2019-04-06] MEDS: methylPREDNISolone SOD SUCCI 40 MG/ML 1 ML VIAL IV SCH ×3 (05:23→17:17)
[2019-04-06 07:44] LABS: Basophils % (A) 0 %; Eosinophils % (A) 0 %; HCT 37.2 % (34.0-46.0); HGB 11.5 gm/dL (11.4-16.0); Hypochromasia Slight; Lymphocytes # (A) 0.6 k/uL (1.0-4.8); Lymphocytes % (A) 6 %; MCH 30.6 pg (25.0-35.0); MCHC 30.9 g/dL (31.0-37.0); MCV 99.2 fL (80.0-100.0); Mean Platelet Volume 7.2; Monocytes # (A) 0.2 k/uL (0-1.0); Monocytes % (A) 1 %; Neutrophils # (A) 9.7 k/uL (1.3-7.7); Neutrophils % (A) 92 %; Platelet Count 497 k/uL (150-450); RBC 3.75 m/uL (3.80-5.40); RDW 13.9 % (11.5-15.5); WBC 10.5 k/uL (3.8-10.6)
[2019-04-06] MEDS: FLUTICASONE 50MCG/SPRAY NASAL 16GM EA NOSTRIL SCH ×2 (07:48→20:30)
[2019-04-06] MEDS: PANTOPRAZOLE 40 MG TABLET PO SCH (07:50)
[2019-04-06] MEDS: FUROSEMIDE 20 MG TAB PO SCH (07:50)
[2019-04-06] MEDS: THIAMINE 100 MG TAB PO SCH (07:50)
[2019-04-06] MEDS: DULoxetine HCL 60 MG CAPSULE.DR PO SCH (07:50)
[2019-04-06] MEDS: POTASSIUM CHLORIDE ER 10 MEQ TAB.ER.PRT PO SCH (07:51)
[2019-04-06] MEDS: FOLIC ACID 1 MG TAB PO SCH (07:51)
[2019-04-06] MEDS: AZITHROMYCIN 500 MG TAB PO SCH (07:52)
[2019-04-06] MEDS: busPIRone HCl 10 MG TAB PO SCH ×2 (07:53→20:46)
[2019-04-06] MEDS: buPROPion XL 300 MG TAB.ER.24H PO SCH (07:53)
[2019-04-06] MEDS: ENOXAPARIN 40 MG/0.4 ML SYRINGE SQ SCH (07:54)
[2019-04-06] MEDS: CEFDINIR 300 MG CAP PO SCH ×2 (07:54→20:46)
[2019-04-06] MEDS: FERROUS SULFATE 325 MG TAB PO SCH (07:59)
[2019-04-06 08:02] LABS: Calcium 8.6 mg/dL (8.4-10.2); Potassium 4.6 mmol/L (3.5-5.1); Total Bilirubin 0.5 mg/dL (0.2-1.3); Total Protein 5.3 g/dL (6.3-8.2)
[2019-04-06] MEDS: guaiFENesin 600 MG TABLET.ER PO SCH ×2 (08:13→20:30)
--- NOTE | 2019-04-06 08:26 | XR ---
EXAMINATION TYPE: XR chest 2V DATE OF EXAM: 04/06/2019 COMPARISON: Prior chest x-ray 04/04/2019 HISTORY: Pneumonia TECHNIQUE: Frontal and lateral views of the chest are obtained. FINDINGS: Findings are similar to prior exam, airspace disease most conspicuous in the right upper l obe. No evident pneumothorax or pleural effusion. Heart size is stable. IMPRESSION: Findings consistent with patient's history of pneumonia.
[2019-04-06] MEDS ORDERED: BENZOCAINE/MENTHOL LOZENG 1 EACH LOZENGE MUCOUS MEM PRN (08:32)
[2019-04-06] MEDS: ONDANSETRON 4 MG/2 ML VIAL IVP PRN (08:33)
[2019-04-06] MEDS: ALBUTEROL NEBULIZED 2.5 MG/3 ML INHALATION SCH ×4 (09:21→20:51)
[2019-04-06] MEDS: BUDESONIDE 1 MG/2 ML NEBU INHALATION SCH ×2 (09:21→21:02)
[2019-04-06] MEDS: FORMOTEROL FUMARATE 20 MCG/2 ML NEBU INHALATION SCH ×2 (09:21→21:02)
--- NOTE | 2019-04-06 10:48 | P.PN ---
Subjective Progress Note Date: 04/06/19 Louise Sutton is a 74-year-old female patient of Dr. Eli, who presented to [facility] emergency room with a chief complaint of cough, shortness of breath, and the right sided chest pain, patient stated that her symptoms started two weeks ago and has been worsening, she denies ever smoking in the past. She was evaluated in the emergency room, she was found to have tachycardia and tachypnea, no fever, chest x-ray revealed patchy infiltrates in both lung calixto suggestive of pneumonia, she was started on IV antibiotic and was admitted to telemetry floor. D-dimer was elevated on presentation, computed tomography scan angiogram of the chest could not be done due to known history of stage IV chronic kidney disease, VQ scan was done and was indeterminate. She was started on Lovenox 40 mg subcu twice daily until further evaluation is done. Patient stated that she had one blood clot in her right leg more than 30 years ago when she was on control pills, otherwise she denies any history of blood clots in the past. She denies any known history of cancer. She states that for the last 2-3 months she has been losing weight. on 04/03/2019 patient was seen and examined on the telemetry floor she is alert and oriented 3 in no apparent distress she is still complaining of cough and complaining of ct pain on the right side witation and with cough she is and able to produce any sputum otherwise she denies any complaints there is no fever or chills no headache or dizziness no nausea or vomiting no abdominal pain no diarrhea no burning with urination no frequency or urgency and no hematuria. Bilateral ower extremity Doppler negative for DVT. on 04/04/2019 patient is alert and oriented 3.today patient is complaining of headache that she states is similar to her migraines. Patient maintained on Imitrex. she also having associated nausea will order Zofran. Awaiting cardiology consult due to chest pain likely associated with pleuritic pain. Patient states shortness of breath has improved. Patient denies nausea vomiting or diarrhea. Patient denies any urinary burning or frequency on 04/05/2019patient is alert and oriented 3. Patient is feeling significantly improved. Repeat chest x-ray did show improved aeration. Headache and nausea has resolved. Cardiology services ruled out acute coronary event chest pain pleuritic. At this time patient denies chest pain. Patient's shortness of breath is improving. Patient denies nausea vomiting or diarrhea. Patient denies any urinary burning or frequency. on 04/06/2019 patient is alert and oriented 3. Patient continues to feel improved. Patient has been up ambulating. Patient reports that she does have a sore throat but shortness of breath and coughing has subsided. patient remains on IV Solu-Medrol azithromycin and Rocephin. Pulmonary services are following. Patient denies chest pain. Patient denies nausea vomiting or diarrhea. Patient denies any urinary burning or frequency Objective - Vital Signs Vital signs: Vital Signs Temp 97.4 F L 04/06/19 05:11 Pulse 96 04/06/19 09:47 Resp 16 04/06/19 05:11 BP 107/71 04/06/19 05:11 Pulse Ox 98 04/06/19 05:11 Intake & Output 04/05/19 04/06/19 04/06/19 18:59 06:59 18:59 Intake Total 180 830 Balance 180 830 Weight 37.5 kg Intake: Oral 180 830 Other: Voiding Method Toilet Toilet # Voids 0 2 - Exam In general patient is alert and oriented 3 in no apparent distress HEENT head normocephalic and atraumatic Neck is supple no JVD no goiter no lymphadenopathy Chest exam reveals a scattered crackles in both lung calixto no wheezing Cardiac exam reveals regular heart sounds S1 and S2 with tachycardia, no gallops no murmurs Abdomen is soft nontender no organomegaly was normal bowel sounds Extremity exam reveals no edema no cyanosis or clubbing Neurological examination reveals no gross focal deficits - Labs CBC & Chem 7: 04/06/19 07:14 04/06/19 07:14 Labs: Abnormal Lab Results - Last 24 Hours (Table) 04/06/19 04/06/19 Range/Units 07:14 07:14 RBC 3.75 L (3.80-5.40) m/uL MCHC 30.9 L (31.0-37.0) g/dL Plt Count 497 H (150-450) k/uL Neutrophils # 9.7 H (1.3-7.7) k/uL Lymphocytes # 0.6 L (1.0-4.8) k/uL Carbon Dioxide 20 L (22-30) mmol/L BUN 56 H (7-17) mg/dL Creatinine 1.47 H (0.52-1.04) mg/dL Glucose 156 H (74-99) mg/dL Total Protein 5.3 L (6.3-8.2) g/dL Albumin 3.0 L (3.5-5.0) g/dL Microbiology - Last 24 Hours (Table) 04/01/19 17:58 Blood Culture - Preliminary Blood No Growth after 96 hours 04/01/19 13:00 Blood Culture - Preliminary Blood No Growth after 96 hours Assessment and Plan Assessment: #1 bilateral patchy infiltrate suggestive of pneumonia patient is started on IV Rocephin and IV Zithromax Will monitor closely, will add Mucinex, and obtain a sputum sample for culture and Gram stain. pulmonary services are following .repeat chest x-ray completed showing improved aeration.patient started on IV Solu-Medrol per pulmonary. repeat chest x-ray has been ordered for a.m. per pulmonary #2 elevated d-dimer, and symptoms suggestive of possible pulmonary embolism, including tachycardia tachypnea and pleuritic chest pain, VQ scan was done and was indeterminate, at this time patient is covered with subcu Lovenox at therap eutic dose of 1 mg/kg gram twice a day, will check bilateral lower extremity Doppler, and may repeat VQ scan when pneumonia is improving to assess if there is any evidence of pulmonary embolism.per pulmonary services doubt pulmonary embolism continue current treatment plan for basilar pneumonia. #3 chest pain, pleuritic in nature troponin level negative, EKG reveals tachycardia without any acute ischemic changes, cardiology consultation requested.per cardiology chest pain very pleuritic in nature atypical for acute coronary syndrome troponins negative. 2-D echo completed showing an EF of 55-60% #4 known history of stage IV chronic kidney disease, maintained on Lasix and Zaroxolyn, creatinine on presentation 1.75, at this time Zaroxolyn is on hold Will monitor kidney function closely. creat and 1.5 to this does appear baseline for patient #5 hypokalemia, we will replace potassium carefully due to abnormal kidney function. resolved #6 underlying history of depression on multiple psychiatric medications, at this time will hold Remeron due to interaction was Zithromax, will resume Remeron when possible. #7 underlying history of hypertension, with borderline control, will monitor b lood pressure and adjust medications as needed #8 underlying history of migraine headache. patient maintained on Imitrex #9 underlying history of chronic pain maintained on fentanyl patch, and [place] medication were resumed. #10 poor oral intake with significant weight loss over the last 2 month, will consult dietitian. #11. Insomnia. Remeron currently on hold due to interaction with Zithromax. Xanax added DVT prophylaxis Lovenox. GI prophylaxis Protonix anticipate discharge in the next 24-48 hours I performed an examination of the patient and discussed their management with the Nurse Practitioner. I have reviewed the Nurse Practitioner's notes and agree with the documented findings and plan of care
--- NOTE | 2019-04-06 10:50 | P.PN ---
Subjective Progress Note Date: 04/06/19 . On 04/06/2019 patient has no specific complaints. She reports ongoing a steady improvement in her pulmonary status. Cough has subsided. Shortness of breath is improved. No significant sputum production. He is still on the same pulmonary nebulized medication regimen including Perforomist and Pulmicort nebulized treatments twice a day and DuoNeb nebulized treatments around the clock. No hemoptysis. No pleurisy. She is ambulating. He is on room air oxygen. Objective - Vital Signs Vital signs: Vital Signs Temp 97.4 F L 04/06/19 05:11 Pulse 96 04/06/19 09:47 Resp 16 04/06/19 05:11 BP 107/71 04/06/19 05:11 Pulse Ox 98 04/06/19 05:11 Intake & Output 04/05/19 04/06/19 04/06/19 18:59 06:59 18:59 Intake Total 180 830 Balance 180 830 Weight 37.5 kg Intake: Oral 180 830 Other: Voiding Method Toilet Toilet # Voids 0 2 - Exam GENERAL EXAM: Alert, frail, cachectic 74-year-old female, on room air, active, comfortable in no apparent distress. HEAD: Normocephalic. EYES: Normal reaction of pupils, equal size. NOSE: Clear with pink turbinates. THROAT: No erythema or exudates. NECK: No masses, no JVD. CHEST: No chest wall deformity. LUNGS: Equal air entry with few scattered rhonchi, crackles in the bases. CVS: S1 and S2 normal with no audible murmur, regular rhythm. ABDOMEN: No hepatosplenomegaly, normal bowel sounds, no guarding or rigidity. SPINE: No scoliosis or deformity SKIN: No rashes CENTRAL NERVOUS SYSTEM: No focal deficits, tone is normal in all 4 extremities. EXTREMITIES: There is no peripheral edema. No clubbing, no cyanosis. Peripheral pulses are intact. - Labs CBC & Chem 7: 04/06/19 07:14 04/06/19 07:14 Labs: Abnormal Lab Results - Last 24 Hours (Table) 04/06/19 04/06/19 Range/Units 07:14 07:14 RBC 3.75 L (3.80-5.40) m/uL MCHC 30.9 L (31.0-37.0) g/dL Plt Count 497 H (150-450) k/uL Neutrophils # 9.7 H (1.3-7.7) k/uL Lymphocytes # 0.6 L (1.0-4.8) k/uL Carbon Dioxide 20 L (22-30) mmol/L BUN 56 H (7-17) mg/dL Creatinine 1.47 H (0.52-1.04) mg/dL Glucose 156 H (74-99) mg/dL Total Protein 5.3 L (6.3-8.2) g/dL Albumin 3.0 L (3.5-5.0) g/dL Microbiology - Last 24 Hours (Table) 04/01/19 17:58 Blood Culture - Preliminary Blood No Growth after 96 hours 04/01/19 13:00 Blood Culture - Preliminary Blood No Growth after 96 hours Assessment and Plan Plan: #1 Acute right-sided pleuritic type chest pain secondary to bibasilar pneumonia, community-acquired.clinically the patient is improving #2 Chronic kidney disease. stable. #3 Previous history of DVT. #4 GERD. #5 Degenerative joint disease. #6 Migraine cephalgia. #7 History of pancreatitis. #8 History of TIA. #9 Spinal stenosis. #10 Anxiety/depression with panic disorder. plan improving. No new complaints. Switch to prednisone burst taper the next 24 hours. Discharge planning is in progress
[2019-04-06] MEDS: LORATADINE 10 MG TAB PO SCH (20:29)
[2019-04-06] MEDS: ALPRAZolam 0.5 MG TAB PO SCH (20:29)
[2019-04-07] MEDS: HYDROmorphone 0.5 MG/0.5 ML SYRINGE IVP PRN ×3 (01:38→10:57)
[2019-04-07] MEDS: methylPREDNISolone SOD SUCCI 40 MG/ML 1 ML VIAL IV SCH ×3 (03:23→11:05)
[2019-04-07] MEDS: LEVOTHYROXINE 100 MCG TAB PO SCH (06:26)
[2019-04-07] MEDS: ALBUTEROL NEBULIZED 2.5 MG/3 ML INHALATION SCH ×3 (06:51→15:36)
[2019-04-07] MEDS: BUDESONIDE 1 MG/2 ML NEBU INHALATION SCH (06:51)
[2019-04-07] MEDS: FORMOTEROL FUMARATE 20 MCG/2 ML NEBU INHALATION SCH (06:51)
[2019-04-07] MEDS: PANTOPRAZOLE 40 MG TABLET PO SCH (07:49)
[2019-04-07] MEDS: FUROSEMIDE 20 MG TAB PO SCH (07:49)
[2019-04-07] MEDS: buPROPion XL 300 MG TAB.ER.24H PO SCH (07:50)
[2019-04-07] MEDS: guaiFENesin 600 MG TABLET.ER PO SCH (07:50)
[2019-04-07] MEDS: DULoxetine HCL 60 MG CAPSULE.DR PO SCH (07:50)
[2019-04-07] MEDS: busPIRone HCl 10 MG TAB PO SCH (07:50)
[2019-04-07] MEDS: AZITHROMYCIN 500 MG TAB PO SCH (07:51)
[2019-04-07] MEDS: CEFDINIR 300 MG CAP PO SCH (07:51)
[2019-04-07] MEDS: ENOXAPARIN 40 MG/0.4 ML SYRINGE SQ SCH (07:53)
[2019-04-07] MEDS: FLUTICASONE 50MCG/SPRAY NASAL 16GM EA NOSTRIL SCH (07:54)
[2019-04-07] MEDS: POTASSIUM CHLORIDE ER 10 MEQ TAB.ER.PRT PO SCH ×2 (07:54→08:57)
[2019-04-07] MEDS: FERROUS SULFATE 325 MG TAB PO SCH (07:54)
[2019-04-07] MEDS: HYDROcodone/APAP 5-325MG 1 EACH TAB PO PRN ×2 (07:57→15:11)
[2019-04-07 08:45] LABS: Albumin 3.2 g/dL (3.5-5.0); Calcium 8.7 mg/dL (8.4-10.2); Potassium 4.5 mmol/L (3.5-5.1); Total Bilirubin 0.5 mg/dL (0.2-1.3); Total Protein 5.6 g/dL (6.3-8.2)
[2019-04-07 09:20] LABS: Basophils % (A) 0 %; Eosinophils % (A) 0 %; HCT 39.8 % (34.0-46.0); HGB 11.8 gm/dL (11.4-16.0); Hypochromasia Moderate; Lymphocytes # (A) 0.7 k/uL (1.0-4.8); Lymphocytes % (A) 5 %; MCHC 29.7 g/dL (31.0-37.0); Macrocytosis Slight; Mean Platelet Volume 7.7; Monocytes # (A) 0.2 k/uL (0-1.0); Monocytes % (A) 2 %; Neutrophils % (A) 92 %; Platelet Count 454 k/uL (150-450); RBC 3.94 m/uL (3.80-5.40); RDW 14.2 % (11.5-15.5)
[2019-04-07] MEDS: THIAMINE 100 MG TAB PO SCH (10:56)
[2019-04-07] MEDS: FOLIC ACID 1 MG TAB PO SCH (10:56)
[2019-04-07] MEDS ORDERED: DOCUSATE 100 MG CAP PO SCH (11:45)
[2019-04-07 11:57] VITALS: BP 118/73; RESP 18; TEMP 98
[2019-04-07 14:14] VITALS: BMI 16.2
--- NOTE | 2019-04-07 14:52 | P.PN ---
Subjective Progress Note Date: 04/07/19 . on 04/07/2019 I am very happy with the patient's progressand she is feeling very well and she is in good spirits. She has no new complaints. She is able to get up and move around. She is on room air oxygen. She is on DuoNeb nebulized treatments around the clock. She is also completing a prednisone burst taper. She has home medications which include Advair and Ventolin rescue inhaler. She is not in need for oxygen therapy for now. She'll complete the antibiotic course on outpatient basis. Objective - Vital Signs Vital signs: Vital Signs Temp 98 F 04/07/19 11:30 Pulse 107 H 04/07/19 11:30 Resp 18 04/07/19 11:30 BP 118/73 04/07/19 11:30 Pulse Ox 97 04/07/19 11:30 Intake & Output 04/06/19 04/07/19 04/07/19 18:59 06:59 18:59 Intake Total 2160 590 1680 Output Total 300 Balance 3290 756 5147 Weight 40.3 kg 40.3 kg Intake: Oral 2160 590 1680 Output: Urine 300 Other: Voiding Method Toilet Toilet Toilet # Voids 4 2 4 - Exam GENERAL EXAM: Alert, frail, cachectic 74-year-old female, on room air, active, comfortable in no apparent distress. HEAD: Normocephalic. EYES: Normal reaction of pupils, equal size. NOSE: Clear with pink turbinates. THROAT: No erythema or exudates. NECK: No masses, no JVD. CHEST: No chest wall deformity. LUNGS: Equal air entry with few scattered rhonchi, crackles in the bases. CVS: S1 and S2 normal with no audible murmur, regular rhythm. ABDOMEN: No hepatosplenomegaly, normal bowel sounds, no guarding or rigidity. SPINE: No scoliosis or deformity SKIN: No rashes CENTRAL NERVOUS SYSTEM: No focal deficits, tone is normal in all 4 extremities. EXTREMITIES: There is no peripheral edema. No clubbing, no cyanosis. Peripheral pulses are intact. - Labs CBC & Chem 7: 04/07/19 07:28 04/07/19 07:28 Labs: Abnormal Lab Results - Last 24 Hours (Table) 04/07/19 04/07/19 Range/Units 07:28 07:28 WBC 13.0 H (3.8-10.6) k/uL MCV 101.0 H (80.0-100.0) fL MCHC 29.7 L (31.0-37.0) g/dL Plt Count 454 H (150-450) k/uL Neutrophils # 12.0 H (1.3-7.7) k/uL Lymphocytes # 0.7 L (1.0-4.8) k/uL Chloride 108 H (98-107) mmol/L BUN 50 H (7-17) mg/dL Creatinine 1.51 H (0.52-1.04) mg/dL Glucose 120 H (74-99) mg/dL Total Protein 5.6 L (6.3-8.2) g/dL Albumin 3.2 L (3.5-5.0) g/dL Microbiology - Last 24 Hours (Table) 04/01/19 17:58 Blood Culture - Preliminary Blood No Growth after 120 hours 04/01/19 13:00 Blood Culture - Preliminary Blood No Growth after 120 hours Assessment and Plan Plan: #1 Acute right-sided pleuritic type chest pain secondary to bibasilar pneumonia, community-acquired.clinically the patient is improving #2 Chronic kidney disease. stable. #3 Previous history of DVT. #4 GERD. #5 Degenerative joint disease. #6 Migraine cephalgia. #7 History of pancreatitis. #8 History of TIA. #9 Spinal stenosis. #10 Anxiety/depression with panic disorder. plan Switch to prednisone burst taper the next 24 hours. agree on discharging this patient home on a prednisone burst taper, oral antibiotics in addition to Advair and Ventolin and albuterol neb last treatment on an as-needed basis. I'll be glad to see her in the office
[2019-04-07 15:25] VITALS: PULSE 100
--- NOTE | 2019-04-07 15:25 | P.DS ---
Providers Date of admission: 04/01/19 14:48 Expected date of discharge: 04/07/19 Attending physician: Palmer Desir Consults: 04/01/19 18:30 Consult Physician Routine Consulting Provider: Garry Sanchez Consult Reason/Comments: Pneumonia Do you want consulting provider notified?: Yes Consult Physician Routine Consulting Provider: Chuck Morales Consult Reason/Comments: Pneumonia, Chest Pain Do you want consulting provider notified?: Yes Primary care physician: Ale Eli Hospital Course: Discharge diagnosis #1 bilateral patchy infiltrate suggestive of pneumonia patient is started on IV Rocephin and IV Zithromax Will monitor closely, will add Mucinex, and obtain a sputum sample for culture and Gram stain. pulmonary services are foll owing.repeat chest x-ray completed showing improved aeration.patient started on IV Solu-Medrol per pulmonary. repeat chest x-ray has been ordered for a.m. per pulmonary patient has been cleared for discharge. Patient will be discharged on Ceftin for 10 days and prednisone taper. #2 elevated d-dimer, and symptoms suggestive of possible pulmonary embolism, including tachycardia tachypnea and pleuritic chest pain, VQ scan was done and was indeterminate, at this time patient is covered with subcu Lovenox at therapeutic dose of 1 mg/kg gram twice a day, will check bilateral lower extremity Doppler, and may repeat VQ scan when pneumonia is improving to assess if there is any evidence of pulmonary embolism.per pulmonary services doubt pulmonary embolism continue current treatment plan for basilar pneumonia. #3 chest pain, pleuritic in nature troponin level negative, EKG reveals tachycardia without any acute ischemic changes, cardiology consultation requested.per cardiology chest pain very pleuritic in nature atypical for acute coronary syndrome troponins negative. 2-D echo completed showing an EF of 55-60% #4 known history of stage IV chronic kidney disease, maintained on Lasix and Za roxolyn, creatinine on presentation 1.75, at this time Zaroxolyn is on hold Will monitor kidney function closely. creat and 1.5 to this does appear baseline for patient #5 hypokalemia, we will replace potassium carefully due to abnormal kidney function. resolved #6 underlying history of depression on multiple psychiatric medications, at this time will hold Remeron due to interaction was Zithromax, will resume Remeron when possible. #7 underlying history of hypertension, with borderline control, will monitor blood pressure and adjust medications as needed #8 underlying history of migraine headache. patient maintained on Imitrex #9 underlying history of chronic pain maintained on fentanyl patch, and Maben medication were resumed. #10 poor oral intake with significant weight loss over the last 2 month, will consult dietitian. #11. Insomnia. Remeron currently on hold due to interaction with Zithromax. Xanax added. Remeron to be continued after discharge. Patient will be dischar ged on Ceftin for IV antibiotics 12. Oral thrush. Patient will be DC'd on nystatin Hospital course Louise Sutton is a 74-year-old female patient of Dr. Eli, who presented to [facility] emergency room with a chief complaint of cough, shortness of breath, and the right sided chest pain, patient stated that her symptoms started two weeks ago and has been worsening, she denies ever smoking in the past. She was evaluated in the emergency room, she was found to have tachycardia and tachypnea, no fever, chest x-ray revealed patchy infiltrates in both lung calixto suggestive of pneumonia, she was started on IV antibiotic and was admitted to telemetry floor. D-dimer was elevated on presentation, computed tomography scan angiogram of the chest could not be done due to known history of stage IV chronic kidney disease, VQ scan was done and was indeterminate. She was started on Lovenox 40 mg subcu twice daily until further evaluation is done. Patient stated that she had one blood clot in her right leg more than 30 years ago when she was on control pills, otherwise she denies any history of blood clots in the past. She denies any known history of cancer. She states that for the last 2-3 months she has been losing weight. on 04/03/2019 patient was seen and examined on the telemetry floor she is alert and oriented 3 in no apparent distress she is still complaining of cough and complaining of ct pain on the right side witation and with cough she is and able to produce any sputum otherwise she denies any complaints there is no fever or chills no headache or dizziness no nausea or vomiting no abdominal pain no diarrhea no burning with urination no frequency or urgency and no hematuria. Bilateral ower extremity Doppler negative for DVT. on 04/04/2019 patient is alert and oriented 3.today patient is complaining of headache that she states is similar to her migraines. Patient maintained on Imitrex. she also having associated nausea will order Zofran. Awaiting cardiology consult due to chest pain likely associated with pleuritic pain. Patient states shortness of breath has improved. Patient denies nausea vomiting or diarrhea. Patient denies any urinary burning or frequency on 04/05/2019patient is alert and oriented 3. Patient is feeling significantly improved. Repeat chest x-ray did show improved aeration. Headache and nausea has resolved. Cardiology services ruled out acute coronary event chest pain pleuritic. At this time patient denies chest pain. Patient's shortness of breath is improving. Patient denies nausea vomiting or diarrhea. Patient denies any urinary burning or frequency. on 04/06/2019 patient is alert and oriented 3. Patient continues to feel improved. Patient has been up ambulating. Patient reports that she does have a sore throat but shortness of breath and coughing has subsided. patient remains on IV Solu-Medrol azithromycin and Rocephin. Pulmonary services are following. Patient denies chest pain. Patient denies nausea vomiting or diarrhea. Patient denies any urinary burning or frequency On 04/07/2019 patient is alert and oriented 3. Patient is eager to be dis charged home. Patient has been cleared by pulmonary services. Patient reports significant improvement with shortness of breath. Patient will be DC'd on prednisone taper and Ceftin antibiotic. patient also requesting refills on Fentenyl pain patches and Maben pain medication that is usually filled by her PCP Dr. eli. But due to holiday office is closed to her next week. Will write Maben for 10 days and 3 FEN IS to carry patient through holiday until she can follow-up with her PCP I performed an examination of the patient and discussed their management with the Nurse Practitioner. I have reviewed the Nurse Practitioner's notes and agree with the documented findings and plan of care Patient Condition at Discharge: Stable Plan - Discharge Summary Discharge Rx Participant: Yes New Discharge Prescriptions: New Docusate [Colace] 100 mg PO DAILY 30 Days #30 cap predniSONE 10 mg PO DIRECTED 30 Days #30 tab Cefuroxime Axetil [Ceftin] 500 mg PO BID 10 Days #20 tab Continue DULoxetine HCL [Cymbalta] 60 mg PO DAILY Omeprazole [PriLOSEC] 20 mg PO AC-BRKT #30 capsule. Folic Acid 1 mg PO DAILY@1200 #1 tablet Thiamine [Vitamin B-1] 100 mg PO DAILY@1200 #1 tablet Ergocalciferol [Vitamin D2 (DRISDOL)] 50,000 unit PO QMONTH fentaNYL 100MCG/HR PATCH [Duragesic 100MCG/HR] 1 patch TRANSDERM Q72H SUMAtriptan SUCCINATE [Imitrex] 50 mg PO DAILY PRN PRN Reason: Migraine Headache buPROPion HCL [Wellbutrin XL] 300 mg PO DAILY Levothyroxine Sodium [Synthroid] 100 mcg PO DAILY HYDROcodone/APAP 5-325MG [Maben 5-325] 1 tab PO TID PRN PRN Reason: Pain Furosemide [Lasix] 20 mg PO DAILY Polyethylene Glycol 3350 [Miralax] 17 gm PO DAILY PRN PRN Reason: Constipation Fluticasone Nasal [place] [Flonase Nasal [place]] 1 spr EA NOSTRIL BID Ferrous Sulfate [Iron (65 MG Elemental)] 650 mg PO DAILY Cyanocobalamin [Vitamin B-12 Injection] 1,000 mcg SQ [id number] busPIRone HCL 30 mg PO BID cloNIDine 0.2 MG/24HR PATCH [Catapres-TTS] 1 patch TRANSDERM REYNA Levocetirizine Dihydrochloride [Xyzal] 5 mg PO HS Albuterol Inhaler [Ventolin Hfa Inhaler] 1 - 2 puff INHALATION RT-Q6H PRN PRN Reason: Shortness Of Breath Mirtazapine [Remeron Soluspan] 60 mg PO HS Potassium Chloride ER [K-Dur 10] 30 meq PO DAILY Discontinued Metolazone [Zaroxolyn] 2.5 mg PO DAILY Discharge Medication List DULoxetine HCL [Cymbalta] 60 mg PO DAILY 09/17/13 [History] Omeprazole [PriLOSEC] 20 mg PO AC-BRKFST #30 capsule. 03/17/14 [Rx] Folic Acid 1 mg PO DAILY@1200 #1 tablet 04/18/14 [Rx] Thiamine [Vitamin B-1] 100 mg PO DAILY@1200 #1 tablet 04/18/14 [Rx] Ergocalciferol [Vitamin D2 (DRISDOL)] 50,000 unit PO QMONTH 09/05/14 [History] fentaNYL 100MCG/HR PATCH [Duragesic 100MCG/HR] 1 patch TRANSDERM Q72H 04/10/15 [History] Cyanocobalamin [Vitamin B-12 Injection] 1,000 mcg SQ [id number] 11/06/15 [History] Ferrous Sulfate [Iron (65 MG Elemental)] 650 mg PO DAILY 11/06/15 [History] Fluticasone Nasal [place] [Flonase Nasal [place]] 1 spr EA NOSTRIL BID 11/06/15 [History] Furosemide [Lasix] 20 mg PO DAILY 11/06/15 [History] HYDROcodone/APAP 5-325MG [Maben 5-325] 1 tab PO TID PRN 11/06/15 [History] Levothyroxine Sodium [Synthroid] 100 mcg PO DAILY 11/06/15 [History] Polyethylene Glycol 3350 [Miralax] 17 gm PO DAILY PRN 11/06/15 [History] SUMAtriptan SUCCINATE [Imitrex] 50 mg PO DAILY PRN 11/06/15 [History] buPROPion HCL [Wellbutrin XL] 300 mg PO DAILY 11/06/15 [History] busPIRone HCL 30 mg PO BID 11/06/15 [History] cloNIDine 0.2 MG/24HR PATCH [Catapres-TTS] 1 patch TRANSDERM REYNA 09/30/16 [History] Albuterol Inhaler [Ventolin Hfa Inhaler] 1 - 2 puff INHALATION RT-Q6H PRN 05/31/17 [History] Levocetirizine Dihydrochloride [Xyzal] 5 mg PO HS 05/31/17 [History] Mirtazapine [Remeron Soluspan] 60 mg PO HS 05/31/17 [History] Potassium Chloride ER [K-Dur 10] 30 meq PO DAILY 04/01/19 [History] Cefuroxime Axetil [Ceftin] 500 mg PO BID 10 Days #20 tab 04/07/19 [Rx] Docusate [Colace] 100 mg PO DAILY 30 Days #30 cap 04/07/19 [Rx] predniSONE 10 mg PO DIRECTED 30 Days #30 tab 04/07/19 [Rx] Follow up Appointment(s)/Referral(s): Ale Eli MD [Primary Care Provider] - 1-2 days [facility] [NON-STAFF] - 1 Week Geovanny Womack MD [STAFF PHYSICIAN] - 1 Week Patient Instructions/Handouts: Dyspnea (ED) Activity/Diet/Wound Care/Special Instructions: Activity as tolerated Diet heart healthy Patient was written for refill on fentanyl patches and 10 days of Maben pain medication due to patient's PCP office being closed due to holiday. Paper prescriptions for fentanyl patch and Maben given to nursing staff Discharge Disposition: HOME SELF-CARE
[2019-04-07] MEDS ORDERED: NYSTATIN 100,000 UNIT/ML SUSP 500,000 UNIT/5 ML CUP PO SCH (18:00)
== END 2019-04-07 16:30 | disposition home or self-care (01) | DRG 194 ==
LOC: EC 12:27 → 4MS4W 14:48 → OBSVTOIN 14:48 → 4MS4W 15:55 → 3SCARD 16:54 → 5NMEDONC 04-05 15:39
PROVIDERS: ADMIT Internal Medicine; ATTEND Internal Medicine
DX: J18.9 Pneumonia, unspecified organism (principal); J45.901 Unspecified asthma with (acute) exacerbation; E44.0 Moderate protein-calorie malnutrition; R64 Cachexia; B37.0 Candidal stomatitis; J44.0 Chronic obstructive pulmonary disease with (acute) lower respiratory infection; J44.1 Chronic obstructive pulmonary disease with (acute) exacerbation; N18.4 Chronic kidney disease, stage 4 (severe); I12.9 Hypertensive chronic kidney disease with stage 1 through stage 4 chronic kidney disease, or unspecified chronic kidney disease; Z68.1 Body mass index [BMI] 19.9 or less, adult; E87.6 Hypokalemia; K21.9 Gastro-esophageal reflux disease without esophagitis; K59.09 Other constipation; M19.90 Unspecified osteoarthritis, unspecified site; M48.00 Spinal stenosis, site unspecified; E03.9 Hypothyroidism, unspecified; G47.00 Insomnia, unspecified; G89.29 Other chronic pain; G43.909 Migraine, unspecified, not intractable, without status migrainosus; F32.9 Major depressive disorder, single episode, unspecified; F41.0 Panic disorder [episodic paroxysmal anxiety]; Z79.890 Hormone replacement therapy; Z79.899 Other long term (current) drug therapy; Z79.891 Long term (current) use of opiate analgesic; Z86.718 Personal history of other venous thrombosis and embolism; Z87.11 Personal history of peptic ulcer disease; Z86.73 Personal history of transient ischemic attack (TIA), and cerebral infarction without residual deficits; Z87.19 Personal history of other diseases of the digestive system; Z87.81 Personal history of (healed) traumatic fracture; Z90.3 Acquired absence of stomach [part of]; Z88.7 Allergy status to serum and vaccine; Z91.048 Other nonmedicinal substance allergy status; Z98.890 Other specified postprocedural states; Z82.49 Family history of ischemic heart disease and other diseases of the circulatory system; Z80.51 Family history of malignant neoplasm of kidney; Z80.41 Family history of malignant neoplasm of ovary; Z80.52 Family history of malignant neoplasm of bladder; Z83.1 Family history of other infectious and parasitic diseases
CPT/HCPCS: 36415; 71046; 78582; 80048; 80053; 83605; 83880; 84145; 84484; 85025; 85379; 85610; 85730; 87040; 93005; 93306; 93970; 94640; 94760; 99285

== ENCOUNTER 2019-06-07 11:40 | Inpatient (IN) | payer MEDICARE, OTHER ==
[2019-06-07] MEDS ORDERED: MORPHINE SULFATE 2 MG/ML SYRINGE IVP STA (12:11)
[2019-06-07] MEDS ORDERED: SODIUM CHLORIDE 0.9% 1,000 ML IV STA (12:11)
--- NOTE | 2019-06-07 12:17 | ED ---
General Adult HPI - General Chief complaint: Extremity Injury, Lower Stated complaint: Fall/left hip injury Time Seen by Provider: 06/07/19 11:49 Source: EMS, RN notes reviewed Mode of arrival: EMS Limitations: no limitations - History of Present Illness Initial comments: Patient is a pleasant 74-year-old female presenting to the emergency Department with complaints of fall. Incident occurred 2 and half days ago. Patient tripped over the vacuum cord. Patient landed on her left hip and bottom. Patient did lightly strike her head however no loss of consciousness. No confusion or weakness or vomiting or headache. Patient is not on blood thinner s. Patient is unable to get up for the past 2 days secondary to pain and left hip. Discomfort is moderate at this time but severe with any movement. No history of similar injury previously. - Related Data Home Medications Medication Instructions Recorded Confirmed DULoxetine HCL [Cymbalta] 60 mg PO DAILY 09/17/13 04/01/19 Ergocalciferol [Vitamin D2 50,000 unit PO QMONTH 09/05/14 04/01/19 (DRISDOL)] fentaNYL 100MCG/HR PATCH 1 patch TRANSDERM Q72H 04/10/15 04/01/19 [Duragesic 100MCG/HR] Cyanocobalamin [Vitamin B-12 1,000 mcg SQ [id number] 11/06/15 04/01/19 Injection] Ferrous Sulfate [Iron (65 MG 650 mg PO DAILY 11/06/15 04/01/19 Elemental)] Fluticasone Nasal [place] [Flonase 1 spr EA NOSTRIL BID 11/06/15 04/01/19 Nasal [place]] Furosemide [Lasix] 20 mg PO DAILY 11/06/15 04/01/19 HYDROcodone/APAP 5-325MG [Frannie 1 tab PO TID PRN 11/06/15 04/01/19 5-325] Levothyroxine Sodium [Synthroid] 100 mcg PO DAILY 11/06/15 04/01/19 Polyethylene Glycol 3350 [Miralax] 17 gm PO DAILY PRN 11/06/15 04/01/19 SUMAtriptan SUCCINATE [Imitrex] 50 mg PO DAILY PRN 11/06/15 04/01/19 buPROPion HCL [Wellbutrin XL] 300 mg PO DAILY 11/06/15 04/01/19 busPIRone HCL 30 mg PO BID 11/06/15 04/01/19 cloNIDine 0.2 MG/24HR PATCH 1 patch TRANSDERM REYNA 09/30/16 04/01/19 [Catapres-TTS] Albuterol Inhaler [Ventolin Hfa 1 - 2 puff INHALATION RT-Q6H PRN 05/31/17 04/01/19 Inhaler] Levocetirizine Dihydrochloride 5 mg PO HS 05/31/17 04/01/19 [Xyzal] Mirtazapine [Remeron Soluspan] 60 mg PO HS 05/31/17 04/01/19 Potassium Chloride ER [K-Dur 10] 30 meq PO DAILY 04/01/19 04/01/19 Previous Rx's Medication Instructions Recorded Omeprazole [PriLOSEC] 20 mg PO AC-BRKFST #30 capsule. 03/17/14 Folic Acid 1 mg PO DAILY@1200 #1 tablet 04/18/14 Thiamine [Vitamin B-1] 100 mg PO DAILY@1200 #1 tablet 04/18/14 Cefuroxime Axetil [Ceftin] 500 mg PO BID 10 Days #20 tab 04/07/19 Docusate [Colace] 100 mg PO DAILY 30 Days #30 cap 04/07/19 Nystatin 100,000 Unit/ml Susp 500,000 unit PO QID 7 Days #28 cup 04/07/19 [Mycostatin Oral Susp] predniSONE 10 mg PO DIRECTED 30 Days #30 04/07/19 tab Allergies Allergy/AdvReac Type Severity Reaction Status Date / Time poliomyelitis vaccine, live Allergy Unknown Verified 04/01/19 15:20 oral Childhood [poliomyelitis vaccine,live] DUST Allergy Itching Uncoded 05/31/17 09:00 MOLDS Allergy Itching Uncoded 05/31/17 09:00 Review of Systems ROS Statement: Those systems with pertinent positive or pertinent negative responses have been documented in the HPI. ROS Other: All systems not noted in ROS Statement are negative. 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 FATHER HAD TB WHEN HE WAS A CHILD .FATHER AT AGE 87. Mother Family Medical History: Cancer Additional Family Medical History / Comment(s): MOTHER AT AGE 58 OF OVARIAN CANCER. General Exam Limitations: no limitations General appearance: alert, in no apparent distress Head exam: Present: atraumatic, normocephalic Eye exam: Present: normal appearance, PERRL, EOMI. Absent: nystagmus ENT exam: Present: normal oropharynx Neck exam: Present: normal inspection. Absent: tenderness Respiratory exam: Present: normal lung sounds bilaterally Cardiovascular Exam: Present: regular rate, normal rhythm Expanded Peripheral pulses: 2+: Dorsalis Pedis (R), Dorsalis Pedis (L) GI/Abdominal exam: Present: soft. Absent: distended, tenderness Extremities exam: Present: tenderness (Severe tenderness anterior left hip.), other (Distal extremities are neurovascularly intact. Pulses intact. Cap refill less than 2 seconds. Sensation intact. Strength intact.). Absent: full ROM Neurological exam: Present: alert, oriented X3, CN II-XII intact. Absent: motor sensory deficit (Except for limited testing left hip secondary to pain) Psychiatric exam: Present: normal affect, normal mood Skin exam: Present: normal color Course Vital Signs 06/07/19 11:57 Temperature 98.4 F Pulse Rate 104 H Respiratory 18 Rate Blood Pressure 164/90 O2 Sat by Pulse 97 Oximetry EKG Findings - EKG Comments: EKG Findings:: Sinus tachycardia 112. [place] 116. QRS 70. QT 320. QTc 436. Normal axis. Septal Q waves. No acute ST change. Medical Decision Making - Medical Decision Making Patient reevaluated and updated. Case discussed with practitioner Bre, covering with Dr. Almaguer, who will admit. - Lab Data Result diagrams: 06/07/19 13:00 06/07/19 13:00 Lab Results 06/07/19 06/07/19 06/07/19 Range/Units 13:00 13:00 13:00 WBC 11.9 H (3.8-10.6) k/uL RBC 4.67 (3.80-5.40) m/uL Hgb 14.1 (11.4-16.0) gm/dL Hct 45.5 (34.0-46.0) % MCV 97.3 (80.0-100.0) fL MCH 30.1 (25.0-35.0) pg MCHC 31.0 (31.0-37.0) g/dL RDW 16.2 H (11.5-15.5) % Plt Count 432 (150-450) k/uL Neutrophils % 77 % Lymphocytes % 15 % Monocytes % 4 % Eosinophils % 2 % Basophils % 0 % Neutrophils # 9.2 H (1.3-7.7) k/uL Lymphocytes # 1.8 (1.0-4.8) k/uL Monocytes # 0.5 (0-1.0) k/uL Eosinophils # 0.2 (0-0.7) k/uL Basophils # 0.1 (0-0.2) k/uL Anisocytosis Slight PT 9.3 (9.0-12.0) sec INR 0.9 (<1.2) APTT 25.2 (22.0-30.0) sec Sodium 139 (137-145) mmol/L Potassium 3.8 (3.5-5.1) mmol/L Chloride 106 (98-107) mmol/L Carbon Dioxide 24 (22-30) mmol/L Anion Gap 9 mmol/L BUN 26 H (7-17) mg/dL Creatinine 1.43 H (0.52-1.04) mg/dL Est GFR (CKD-EPI)AfAm 42 (>60 ml/min/1.73 sqM) Est GFR (CKD-EPI)NonAf 37 (>60 ml/min/1.73 sqM) Glucose 96 (74-99) mg/dL Calcium 9.8 (8.4-10.2) mg/dL Total Bilirubin 0.6 (0.2-1.3) mg/dL AST 27 (14-36) U/L ALT 26 (4-34) U/L Alkaline Phosphatase 161 H (38-126) U/L Creatine Kinase 60 (30-135) U/L Total Protein 6.8 (6.3-8.2) g/dL Albumin 4.4 (3.5-5.0) g/dL - Radiology Data Radiology results: image reviewed (Left hip and pelvis x-ray shows left femoral neck fracture. Chest x-ray shows focal peripheral right lung opacity, suspect technical artifact. Follow-up recommended.) Disposition Clinical Impression: Femoral neck fracture Disposition: ADMITTED IP TO THIS [facility] Condition: Serious Is patient prescribed a controlled substance at d/c from ED?: No Referrals: Ale Eli MD [Primary Care Provider] - 1-2 days Decision Time: 14:22
[2019-06-07 13:16] LABS: Anisocytosis Slight; Basophils # (A) 0.1 k/uL (0-0.2); Basophils % (A) 0 %; Eosinophils # (A) 0.2 k/uL (0-0.7); Eosinophils % (A) 2 %; HCT 45.5 % (34.0-46.0); HGB 14.1 gm/dL (11.4-16.0); Lymphocytes # (A) 1.8 k/uL (1.0-4.8); Lymphocytes % (A) 15 %; MCH 30.1 pg (25.0-35.0); MCV 97.3 fL (80.0-100.0); Mean Platelet Volume 6.9; Monocytes # (A) 0.5 k/uL (0-1.0); Monocytes % (A) 4 %; Neutrophils # (A) 9.2 k/uL (1.3-7.7); Neutrophils % (A) 77 %; Platelet Count 432 k/uL (150-450); RBC 4.67 m/uL (3.80-5.40); RDW 16.2 % (11.5-15.5); WBC 11.9 k/uL (3.8-10.6)
[2019-06-07] MEDS ORDERED: MORPHINE SULFATE 4 MG/ML SYRINGE IV STA ×2 (13:19→14:28)
[2019-06-07 13:21] LABS: INR 0.9 (<1.2); Partial Thromboplastin Time 25.2 sec (22.0-30.0); Prothrombin Time 9.3 sec (9.0-12.0)
[2019-06-07 13:34] LABS: Albumin 4.4 g/dL (3.5-5.0); Calcium 9.8 mg/dL (8.4-10.2); Potassium 3.8 mmol/L (3.5-5.1); Total Bilirubin 0.6 mg/dL (0.2-1.3); Total Protein 6.8 g/dL (6.3-8.2)
--- NOTE | 2019-06-07 13:35 | XR ---
EXAMINATION TYPE: XR chest 1V portable DATE OF EXAM: 06/07/2019 Comparison: 04/06/2019 Clinical History: 74-year-old female preoperative exam, fall. Findings: The heart is upper limits of normal in size. Hyperinflation. Old healed fracture deformity left colli cular shaft. Some focal density peripheral right midlung may be projectional due to left obliquity. S ome surgical material noted at the medial left base. No pleural effusion or pneumothorax. Impression: Some focal peripheral right midlung opacity. Suspect projectional/technical artifact due to patient p ositioning. Follow-up high quality PA and lateral views when patient able to exclude an area of conso lidation or abnormal opacity.
--- NOTE | 2019-06-07 13:37 | XR ---
EXAMINATION TYPE: AP view pelvis and 2 views left hip DATE OF EXAM: 06/07/2019 COMPARISON: NONE HISTORY: 74-year-old female with fall and pain FINDINGS: L4-L5 posterior fusion hardware within the lumbar spine. There is an impacted, mildly angulated trans cervical femoral neck fracture on the left with proximal migration. Mild axial joint space narrowing on both sides. IMPRESSION: Impacted, mildly angulated, and proximally migrated transcervical femoral neck fracture on the left.
[2019-06-07] MEDS ORDERED: ONDANSETRON 4 MG/2 ML VIAL IVP PRN (14:26)
[2019-06-07] MEDS ORDERED: NALOXONE 0.4 MG/ML 1 ML VIAL IV PRN (14:26)
--- NOTE | 2019-06-07 14:52 | XR ---
EXAMINATION TYPE: XR chest 1V DATE OF EXAM: 06/07/2019 COMPARISON: 06/07/2019 earlier today HISTORY: 74-year-old female with abnormal chest x-ray. TECHNIQUE: Single frontal view of the chest is obtained. FINDINGS: The previous questioned density in the peripheral right midlung does not persist on the repeat exam. Mild hyperinflation. Old fracture deformity left clavicular shaft. Heart remains upper limits of norm al in size. IMPRESSION: Repeat exam shows that the questioned opacity peripheral right midlung was artifactual. No acute proc ess seen.
--- NOTE | 2019-06-07 15:26 | P.HPOR ---
History of Present Illness H&P Date: 06/07/19 Chief Complaint: Left hip pain and inability ambulate due to pain Patient is a very pleasant 74-year-old female who is seen and examined in the hallway in the emergency department for further evaluation for her right hip. Patient states she sustained a fall Thursday evening approximate 7 PM when she fell over the cord on her vacuum. She was unable to get up at that time. She states she laid on the floor until Thursday. At that time she was able to crawl herself to the couch. She laid on the couch until today, 06/07/2019. She states her medications are delivered at home daily. She states at the time her prescriptions were delivered to her home today the assistant gm of content & delivery recommended her coming to the hospital. She was brought to the hospital via EMS. Patient has been unable to ambulate since her fall on 06/04/2019. She's had significant pain with any range of motion of the left lower extremity. She is experiencing significant spasms at her left hip. She denies any right lower extremity weakness, radiculopathy, or pain. She denies loss of consciousness. Patient is not currently on blood thinner medication. She does have a history of asthma and previous DVT. She also has a history of lumbar fusion. Past Medical History Past Medical History: Asthma, Deep Vein Thrombosis (DVT), GERD/Reflux Additional Past Medical History / Comment(s): OA IN NECK,BACK AND BILATERAL ARMS.stomach ulcers, edema,low calcium; migraine headaches, pancreatitis,constipation,tia,spinal stenosis(had sx ) History of Any Multi-Drug Resistant Organisms: None Reported Past Surgical History: Back Surgery, Bowel Resection Additional Past Surgical History / Comment(s): LOWER BACK SURGERY lamenectomy/d iscetomy then had a revison of that sx. 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 FATHER HAD TB WHEN HE WAS A CHILD .FATHER AT AGE 87. Mother Family Medical History: Cancer Additional Family Medical History / Comment(s): MOTHER AT AGE 58 OF OVARIAN CANCER. Medications and Allergies Home Medications Medication Instructions Recorded Confirmed Type DULoxetine HCL [Cymbalta] 60 mg PO DAILY 09/17/13 06/07/19 History Omeprazole [PriLOSEC] 20 mg PO INDIRA-DINAKFST #30 capsule. 03/17/14 06/07/19 Rx Folic Acid 1 mg PO DAILY@1200 #1 tablet 04/18/14 06/07/19 Rx Thiamine [Vitamin B-1] 100 mg PO DAILY@1200 #1 tablet 04/18/14 06/07/19 Rx fentaNYL 100MCG/HR PATCH 1 patch TRANSDERM Q72H 04/10/15 06/07/19 History [Duragesic 100MCG/HR] Cyanocobalamin [Vitamin B-12 1,000 mcg SQ [id number] 11/06/15 06/07/19 History Injection] Ferrous Sulfate [Iron (65 MG 650 mg PO DAILY 11/06/15 06/07/19 History Elemental)] Fluticasone Nasal [place] [Flonase 2 spr EA NOSTRIL DAILY 11/06/15 06/07/19 History Nasal [place]] Furosemide [Lasix] 20 mg PO DAILY 11/06/15 06/07/19 History HYDROcodone/APAP 5-325MG [[place] 1 tab PO TID PRN 11/06/15 06/07/19 History 5-325] SUMAtriptan SUCCINATE [Imitrex] 50 mg PO DAILY PRN 11/06/15 06/07/19 History buPROPion HCL [Wellbutrin XL] 300 mg PO DAILY 11/06/15 06/07/19 History busPIRone HCL 30 mg PO HS 11/06/15 06/07/19 History cloNIDine 0.2 MG/24HR PATCH 1 patch TRANSDERM REYNA 09/30/16 06/07/19 History [Catapres-TTS] Albuterol Inhaler [Ventolin Hfa 2 puff INHALATION RT-Q4H PRN 05/31/17 06/07/19 History Inhaler] Levocetirizine Dihydrochloride 5 mg PO HS 05/31/17 06/07/19 History [Xyzal] Mirtazapine [Remeron Soluspan] 60 mg PO HS 05/31/17 06/07/19 History Potassium Chloride ER [K-Dur 10] 30 meq PO DAILY 04/01/19 06/07/19 History Docusate [Colace] 100 mg PO DAILY 30 Days #30 cap 04/07/19 06/07/19 Rx Calcitriol 1 mcg PO MOWEFR 06/07/19 06/07/19 History Calcium/Magnesium 250mg/300mg 1 tab PO DAILY 06/07/19 06/07/19 History Dronabinol [Marinol] 5 mg PO AC-BID 06/07/19 06/07/19 History Ergocalciferol [Vitamin D2 50,000 units PO QMONTH 06/07/19 06/07/19 History (DRISDOL)] Ipratropium-Albuterol Nebulize 3 ml INHALATION RT-QID PRN 06/07/19 06/07/19 History [Duoneb 0.5 mg-3 mg/3 ml Soln] Levothyroxine Sodium [Synthroid] 88 mcg PO DAILY 06/07/19 06/07/19 History Megestrol Acetate 200 mg PO TID 06/07/19 06/07/19 History Methylcellulose (with Sugar) 2 gm PO DAILY 06/07/19 06/07/19 History [Citrucel Powder] Metolazone [Zaroxolyn] 2.5 mg PO Q48H 06/07/19 06/07/19 History hydrOXYzine PAMOATE [Vistaril] 50 mg PO TID PRN 06/07/19 06/07/19 History Allergies Allergy/AdvReac Type Severity Reaction Status Date / Time poliomyelitis vaccine, live Allergy Unknown Verified 06/07/19 14:35 oral Childhood [poliomyelitis vaccine,live] DUST Allergy Itching Uncoded 06/07/19 14:35 MOLDS Allergy Itching Uncoded 06/07/19 14:35 Physical Examination Physical exam: Patient is awake, alert, and oriented 3 Vital signs stable Good chest excursion with deep inspiration and expiration Left lower extremity is shortened and externally rotated Significant pain with palpation of the left hip Significant pain with internal and external rotation of the left hip No pain with internal and external rotation of the right hip Neurovascularly intact bilateral lower extremities Dorsiflexion, plantarflexion, and extensor hallucis longus positive sustained bilaterally Calves are soft and supple; No signs or symptoms of DVT; No calf pain Results X-rays of the pelvis and left hip taken on 06/07/2019: Evidence of a left impacted mildly angulated transcervical femoral neck hip fracture; right hip joint space is adequately maintained; no other fractures identified within the pelvis; evidence of hardware of the lower lumbar spine - Labs Labs: Abnormal Lab Results - Last 24 Hours (Table) 06/07/19 06/07/19 Range/Units 13:00 13:00 WBC 11.9 H (3.8-10.6) k/uL RDW 16.2 H (11.5-15.5) % Neutrophils # 9.2 H (1.3-7.7) k/uL BUN 26 H (7-17) mg/dL Creatinine 1.43 H (0.52-1.04) mg/dL Alkaline Phosphatase 161 H (38-126) U/L H & H 06/07/19 Range/Units 13:00 Hgb 14.1 (11.4-16.0) gm/dL Hct 45.5 (34.0-46.0) % Coagulation 06/07/19 Range/Units 13:00 INR 0.9 (<1.2) Result Diagrams: 06/07/19 13:00 06/07/19 13:00 Assessment and Plan Assessment: Assessment: Left femoral neck fracture status post fall Inability to ambulate due to hip fracture Left hip pain History of asthma History of previous DVT History of lumbar fusion (1) Fracture of femoral neck, left, closed Current Visit: Yes Status: Acute Code(s): S72.002A - FRACTURE OF UNSP PART OF NECK OF LEFT FEMUR, INIT SNOMED Code(s): 059822970 (2) Left hip pain Current Visit: Yes Status: Acute Code(s): M25.552 - PAIN IN LEFT HIP SNOMED Code(s): 93680787 (3) Status post fall Current Visit: Yes Status: Acute Code(s): Z91.81 - HISTORY OF FALLING SNOMED Code(s): 778084401 (4) Inability to ambulate due to hip Current Visit: Yes Status: Acute Code(s): R26.2 - DIFFICULTY IN WALKING, NOT ELSEWHERE CLASSIFIED SNOMED Code(s): 094929438 (5) History of asthma Current Visit: Yes Status: Acute Code(s): Z87.09 - PERSONAL HISTORY OF OTHER DISEASES OF THE RESPIRATORY SYSTEM SNOMED Code(s): 602305766 (6) History of DVT (deep vein thrombosis) Current Visit: Yes Status: Acute Code(s): Z86.718 - PERSONAL HISTORY OF OTHER VENOUS THROMBOSIS AND EMBOLISM SNOMED Code(s): 998325498 (7) History of lumbar fusion Current Visit: Yes Status: Acute Code(s): Z98.1 - ARTHRODESIS STATUS SNOMED Code(s): 55626850944818 Plan: Plan: 1. Patient has been discussed in detail Dr. Tavon Almaguer. Patient sustained a fall on 06/04/2019, and has been unable to ambulate since that time. She was brought to the emergency department today, 06/07/2019. Reviewing her imaging shows evidence of a left femoral neck fracture. Patient continues to have significant pain in her left hip with any range of motion of the left hip. We discussed conservative treatment versus surgical intervention. We discussed surgical intervention will provide her with the best opportunity to have improvement of her symptoms and for her to be able to ambulate on her left lower extremity. Patient states given her significant pain and inability to ambulate, she would like to proceed forward with surgical intervention as she does feel surgical intervention gives her the best opportunity for improvement of her symptoms. At this time, we will plan to proceed for surgical intervention tomorrow, 06/08/2019. The proposed surgical intervention is a left hip hemiarthroplasty to be performed by Dr. Tavon Almaguer. Patient will be seen and examined by Dr. Desir in medicine for medical clearance prior to surgical intervention. We discussed patient may eat today and will become nothing by mouth status starting at midnight, 06/08/2019. I discussed these issues with the patient at length and I answered all of their questions to the best of my ability and the patient understands. I discussed the risk of surgical intervention and alternative treatment options. The risk of surgical intervention was explained to the patient in detail including but not limited to risk of bleeding, risk of infection, risk and need for further surgery, risk of decreased loss of motion of function, malunion, nonunion, hardware failure, nerve damage, paralysis, heart attack, , as well as the fact that surgery may not alleviate her symptoms. I answered all the patient's questions the best of my ability. The patient would like to proceed forward with surgical intervention and will sign informed consent. 2. We'll continue pain control with morphine as prescribed to the emergency department. We'll also plan to add Flexeril 10 mg 1 tablet every 8 hours as needed for muscle spasm. We will plan to add oral medications including [place] 5 mg/325 mg 1-2 tabs every 6 hours as needed for pain. Time with Patient: Greater than 30 (Including obtaining history, physical examination, reviewing of imaging, and dictation.)
[2019-06-07] MEDS: HYDROcodone/APAP 5-325MG 1 EACH TAB PO PRN (15:52)
[2019-06-07 16:03] LABS: Appearance,Urine Clear (Clear); Bilirubin,Urine Negative (Negative); Blood,Urine Negative (Negative); Color,Urine Yellow; Glucose,Urine (UA) Negative (Negative); Ketones,Urine Negative (Negative); Leukocyte Esterase,Urine Negative (Negative); Nitrite,Urine Negative (Negative); Protein,Urine Negative (Negative); Urobilinogen,Urine <2.0 mg/dL (<2.0)
[2019-06-07] MEDS: MORPHINE SULFATE 4 MG/ML SYRINGE IV PRN ×2 (17:42→23:47)
[2019-06-07] MEDS: CYCLOBENZAPRINE 10 MG TAB PO PRN (18:13)
[2019-06-07] MEDS: HYDROmorphone 2 MG/ML 1 ML SYRINGE IVP PRN (21:03)
[2019-06-07] MEDS ORDERED: ALBUTEROL NEBULIZED 2.5 MG/3 ML INHALATION PRN (21:45)
[2019-06-07] MEDS ORDERED: IPRATROPIUM-ALBUTEROL 3 ML NEB INHALATION PRN (22:00)
[2019-06-07] MEDS ORDERED: FLUTICASONE 50MCG/SPRAY NASAL 16GM EA NOSTRIL PRN (23:00)
[2019-06-07] MEDS: hydrOXYzine PAMOATE 25 MG CAP PO SCH (23:48)
[2019-06-07] MEDS: MIRTAZAPINE 15 MG TAB PO SCH (23:48)
[2019-06-07] MEDS: LORATADINE 10 MG TAB PO SCH (23:48)
[2019-06-07] MEDS: busPIRone HCl 10 MG TAB PO SCH (23:48)
[2019-06-07] MEDS: PANTOPRAZOLE 40 MG TABLET PO SCH (23:49)
[2019-06-07] MEDS: SODIUM CHLORIDE 0.9% 1,000 ML IV SCH (23:49)
[2019-06-08] MEDS: SODIUM CHLORIDE 0.9% 1,000 ML IV SCH ×2 (01:54→16:30)
[2019-06-08] MEDS: MEGESTROL 400 MG/10 ML CUP PO SCH ×4 (01:54→21:50)
[2019-06-08] MEDS: DRONABINOL 2.5 MG CAP PO SCH ×3 (01:54→16:29)
[2019-06-08] MEDS: HYDROmorphone 2 MG/ML 1 ML SYRINGE IVP PRN ×4 (03:12→21:46)
[2019-06-08] MEDS: LEVOTHYROXINE 88 MCG TAB PO SCH (05:24)
[2019-06-08] MEDS: FUROSEMIDE 20 MG TAB PO SCH (07:39)
[2019-06-08] MEDS: DULoxetine HCL 60 MG CAPSULE.DR PO SCH (07:39)
[2019-06-08] MEDS: hydrOXYzine PAMOATE 25 MG CAP PO SCH ×3 (07:39→21:49)
[2019-06-08] MEDS: HYDROcodone/APAP 5-325MG 1 EACH TAB PO PRN ×3 (07:40→23:45)
[2019-06-08] MEDS: buPROPion XL 300 MG TAB.ER.24H PO SCH (07:41)
[2019-06-08] MEDS: FERROUS SULFATE 325 MG TAB PO SCH (07:41)
[2019-06-08] MEDS: DOCUSATE 100 MG CAP PO SCH (07:43)
[2019-06-08] MEDS: POTASSIUM CHLORIDE ER 10 MEQ TAB.ER.PRT PO SCH (07:44)
[2019-06-08] MEDS: PANTOPRAZOLE 40 MG TABLET PO SCH ×2 (07:49→16:29)
[2019-06-08] MEDS ORDERED: CALCITRIOL 0.25 MCG CAP PO SCH ×2 (09:00→20:30)
[2019-06-08] MEDS ORDERED: SUMAtriptan SUCCINATE 50 MG TAB PO PRN (09:00)
[2019-06-08] MEDS: METOPROLOL TARTRATE 25 MG TAB PO SCH (09:47)
--- NOTE | 2019-06-08 11:05 | P.CONS ---
History of Present Illness - Reason for Consult Consult date: 06/08/19 medical managment Requesting physician: Tavon Almaguer - Chief Complaint Fall with left femoral neck fracture - History of Present Illness This is a 74-year-old female patient of Dr. Eli. Patient presented after sustaining a fall. Patient reports that she was at home she tripped over a vacuum cord and landed on her left hip patient states she laid on the floor for approximately 2 days until someone came to her house and EMS was called. . Patient has a past medical history of asthma, DVT due to control many years ago not currently on treatment GERD, anxiety, depression, panic disorder and chronic pain in which she is on multiple pain medications including fentynl patch. Hip x-ray completed showing impacted mildly angulated approximately migrated transcervical femoral neck fracture of the left. Patient has been admitted to Dr. Almaguer. Plans for surgical intervention today 06/08/2019. Chest x-ray completed showing repeat exam shows that the question E peripheral right midlung was artifactual. No acute process seen. At this time patient is complaining about increased pain to left hip. This is likely contributing to her tachycardia. Will start patient on Lopressor 25 daily. Patient denies any active chest pain or shortness of breath. Patient denies any significant cardiac history. Patient denies irregular rhythm heart attack or CHF. Patient denies asthma or COPD. Patient will need anticoagulation per surgical services due to previous history of DVT and patient being at increased risk postsurgical. Patient does have past medical history of chronic kidney disease stage IV. Current creatinine 1.43 and bun 26, this does appear improved from baseline for patient will continue to monitor continue normal saline at 75. UA was negative. At this time patient denies chest pain or shortness of breath. Patient denies nausea vomiting or diarrhea. Patient denies any urinary burning or frequency. Review of Systems Please refer to HPI otherwise unremarkable Past Medical History Past Medical History: Asthma, Deep Vein Thrombosis (DVT), GERD/Reflux Additional Past Medical History / Comment(s): OA IN NECK,BACK AND BILATERAL ARMS.stomach ulcers, edema,low calcium; migraine headaches, pancreatitis,constipation,tia,spinal stenosis(had sx ) History of Any Multi-Drug Resistant Organisms: None Reported Past Surgical History: Back Surgery, Bowel Resection Additional Past Surgical History / Comment(s): LOWER BACK SURGERY lamenectomy/discetomy then had a revison of that sx. 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 PT IS ABLE TO DRIVE A CAR. PT HAS A BEST FRIEND AND [employer] HEL[employer]. Smoking Status: Never smoker Past Alcohol Use History: None Reported Past Drug Use History: None Reported - Past Family History Father Family Medical History: Cancer, Coronary Artery Disease (CAD) Additional Family Medical History / Comment(s): FATHER HAD BLADDER AND KIDNEY CANCER. FATHER HAD TB WHEN HE WAS A CHILD .FATHER AT AGE 87. Mother Family Medical History: Cancer Additional Family Medical History / Comment(s): MOTHER AT AGE 58 OF OVARIAN CANCER. Medications and Allergies Home Medications Medication Instructions Recorded Confirmed Type DULoxetine HCL [Cymbalta] 60 mg PO DAILY 09/17/13 06/07/19 History Omeprazole [PriLOSEC] 20 mg PO AC-BRKFST #30 capsule. 03/17/14 06/07/19 Rx Folic Acid 1 mg PO DAILY@1200 #1 tablet 04/18/14 06/07/19 Rx Thiamine [Vitamin B-1] 100 mg PO DAILY@1200 #1 tablet 04/18/14 06/07/19 Rx fentaNYL 100MCG/HR PATCH 1 patch TRANSDERM Q72H 04/10/15 06/07/19 History [Duragesic 100MCG/HR] Cyanocobalamin [Vitamin B-12 1,000 mcg SQ [id number] 11/06/15 06/07/19 History Injection] Ferrous Sulfate [Iron (65 MG 650 mg PO DAILY 11/06/15 06/07/19 History Elemental)] Fluticasone Nasal [place] [Flonase 2 spr EA NOSTRIL DAILY 11/06/15 06/07/19 History Nasal [place]] Furosemide [Lasix] 20 mg PO DAILY 11/06/15 06/07/19 History HYDROcodone/APAP 5-325MG [[place] 1 tab PO TID PRN 11/06/15 06/07/19 History 5-325] SUMAtriptan SUCCINATE [Imitrex] 50 mg PO DAILY PRN 11/06/15 06/07/19 History buPROPion HCL [Wellbutrin XL] 300 mg PO DAILY 11/06/15 06/07/19 History busPIRone HCL 30 mg PO HS 11/06/15 06/07/19 History Albuterol Inhaler [Ventolin Hfa 2 puff INHALATION RT-Q4H PRN 05/31/17 06/07/19 History Inhaler] Levocetirizine Dihydrochloride 5 mg PO HS 05/31/17 06/07/19 History [Xyzal] Mirtazapine [Remeron Soluspan] 60 mg PO HS 05/31/17 06/07/19 History Potassium Chloride ER [K-Dur 10] 30 meq PO DAILY 04/01/19 06/07/19 History Docusate [Colace] 100 mg PO DAILY 30 Days #30 cap 04/07/19 06/07/19 Rx Calcitriol 1 mcg PO MOWEFR 06/07/19 06/07/19 History Calcium/Magnesium 250mg/300mg 1 tab PO DAILY 06/07/19 06/07/19 History Dronabinol [Marinol] 5 mg PO AC-BID 06/07/19 06/07/19 History Ergocalciferol [Vitamin D2 50,000 units PO QMONTH 06/07/19 06/07/19 History (DRISDOL)] Ipratropium-Albuterol Nebulize 3 ml INHALATION RT-QID PRN 06/07/19 06/07/19 History [Duoneb 0.5 mg-3 mg/3 ml Soln] Levothyroxine Sodium [Synthroid] 88 mcg PO DAILY 06/07/19 06/07/19 History Megestrol Acetate 200 mg PO TID 06/07/19 06/07/19 History Methylcellulose (with Sugar) 2 gm PO DAILY 06/07/19 06/07/19 History [Citrucel Powder] Metolazone [Zaroxolyn] 2.5 mg PO Q48H 06/07/19 06/07/19 History cloNIDine 0.1 MG/24HR PATCH 1 patch TRANSDERM REYNA 06/07/19 06/07/19 History [Catapres-TTS] hydrOXYzine PAMOATE [Vistaril] 50 mg PO TID PRN 06/07/19 06/07/19 History Allergies Allergy/AdvReac Type Severity Reaction Status Date / Time poliomyelitis vaccine, live Allergy Unknown Verified 06/07/19 14:35 oral Childhood [poliomyelitis vaccine,live] DUST Allergy Itching Uncoded 06/07/19 14:35 MOLDS Allergy Itching Uncoded 06/07/19 14:35 Physical Exam Vitals: Vital Signs Temp Pulse Pulse Resp BP BP Pulse Ox 06/08/19 07:30 18 06/08/19 07:00 97.7 F 109 H 18 186/103 98 06/07/19 19:30 98.2 F 107 H 16 173/93 98 06/07/19 19:05 98.0 F 105 H 18 155/82 98 06/07/19 18:14 125 H 20 171/101 97 06/07/19 15:48 111 H 18 152/88 98 06/07/19 14:28 98.9 F 110 H 20 179/96 98 06/07/19 11:57 98.4 F 104 H 18 164/90 97 Intake and Output 06/07/19 06/08/19 06/08/19 22:59 06:59 14:59 Intake Total 120 Output Total 1800 700 Balance -1680 -700 Intake: Oral 120 Output: Urine 1800 700 Other: Voiding Method Indwelling Catheter Indwelling Catheter Weight 40.823 kg Head normocephalic Neck supple Lungs clear to auscultation bilaterally no wheezing or crackles Heart regular rate and rhythm S1-S2, no rub or gallop Abdomen is soft nontender nondistended positive bowel sounds no hepatosplenomegaly Extremities no edema Neuro alert and orientated to 3 Results CBC & Chem 7: 06/07/19 13:00 06/07/19 13:00 Labs: Abnormal Lab Results - Last 24 Hours (Table) 06/07/19 06/07/19 Range/Units 13:00 13:00 WBC 11.9 H (3.8-10.6) k/uL RDW 16.2 H (11.5-15.5) % Neutrophils # 9.2 H (1.3-7.7) k/uL BUN 26 H (7-17) mg/dL Creatinine 1.43 H (0.52-1.04) mg/dL Alkaline Phosphatase 161 H (38-126) U/L Assessment and Plan Assessment: 1. Left femoral neck fracture status post fall. Patient to undergo surgical intervention today 06/08/[address] Almaguer. Patient currently on Dilaudid and [place] and morphine for pain control. 2. Sinus tachycardia likely secondary to pain. Patient denies chest pain. Lopressor 25 mg has been added 3. Chronic kidney disease stage IV. Patient's creatinine on admission 1.43 and bun 26 this does appear improved compared to patient's baseline. Continue normal saline at 75 4. History of DVT. Patient reports that she had a history of DVT back when she was on control not currently on any blood thinners. Patient will need prophylaxis DVT prevention post surgery due to increased risk per surgical services 5. History of chronic pain. Patient is managed on fentanyl patches 6. History of anxiety and depression. Home meds resumed 7. History of asthma. No exacerbation at this time 8. History of GERD 9. History of migraines 10. History of laminectomy UA negative Sinus tachycardia likely secondary to pain, metoprolol added, TSH level ordered Chest x-ray completed showing no acute pulmonary process A.m. labs have been ordered Patient has been cleared for surgical intervention Thank you for this consultation we'll continue to follow patient closely throughout stay Time with Patient: Greater than 30 (Greater than 60% of the total time spent in counseling and coordination of care. I performed an examination of the patient and discussed their management with the Nurse Practitioner. I have reviewed the Nurse Practitioner's notes and agree with the documented findings and plan of care)
[2019-06-08] MEDS ORDERED: LACTATED RINGERS 1,000 ML IV ONE ×2 (11:07→13:08)
[2019-06-08] MEDS ORDERED: ONDANSETRON 4 MG/2 ML VIAL IVP ONE (11:25)
[2019-06-08] MEDS ORDERED: ePHEDrine SULFATE/0.9% NACL/PF 50 MG/5 ML SYRINGE IV ONE (11:32)
[2019-06-08] MEDS ORDERED: PHENYLEPHRINE-0.9% NACL SYG 1 MG/10 ML SYRINGE ONE (11:32)
[2019-06-08] MEDS ORDERED: KETAMINE 10 MG/ML 20 ML VIAL ONE (11:32)
[2019-06-08] MEDS ORDERED: MIDAZOLAM 2 MG/2 ML VIAL ONE (11:32)
[2019-06-08] MEDS ORDERED: PROPOFOL 10 MG/ML 20 ML VIAL IV ONE (11:32)
[2019-06-08] MEDS ORDERED: fentaNYL (PF) 50 MCG/ML 2 ML AMP ONE (11:32)
[2019-06-08 11:47] VITALS: BMI 16.5
--- NOTE | 2019-06-08 14:01 | XR ---
Limited left hip history: Status post left hip arthroplasty Single frontal view of the left hip Lucencies present in the soft tissues. Patient is status post left hip arthroplasty. There is anatomi c alignment. IMPRESSION: Orthopedic follow-up
[2019-06-08] MEDS: FOLIC ACID 1 MG TAB PO SCH (14:35)
[2019-06-08] MEDS: THIAMINE 100 MG TAB PO SCH (14:36)
[2019-06-08] MEDS: LACTATED RINGERS 1,000 ML IV SCH ×2 (14:37→21:52)
[2019-06-08] MEDS: CYCLOBENZAPRINE 10 MG TAB PO PRN (19:26)
[2019-06-08] MEDS: LORATADINE 10 MG TAB PO SCH (19:58)
[2019-06-08] MEDS: busPIRone HCl 10 MG TAB PO SCH (19:58)
[2019-06-08] MEDS: ENOXAPARIN 40 MG/0.4 ML SYRINGE SQ SCH (19:59)
[2019-06-08] MEDS ORDERED: ALBUTEROL INHALER 60 PUFF/8 GM INHALER INHALATION PRN (20:30)
[2019-06-08] MEDS ORDERED: IPRATROPIUM-ALBUTEROL 3 ML NEB INHALATION PRN (20:30)
[2019-06-08] MEDS ORDERED: BUSPIRONE HCL 30 MG PO SCH (21:00)
[2019-06-08] MEDS ORDERED: METOLAZONE 2.5 MG TAB PO SCH (21:00)
[2019-06-08] MEDS: SENNOSIDES-DOCUSATE SODIUM 1 EACH TAB PO SCH (21:49)
[2019-06-08] MEDS: MIRTAZAPINE 15 MG TAB PO SCH (21:50)
[2019-06-08] MEDS ORDERED: MEGESTROL ACETATE 200 MG PO SCH (22:00)
--- NOTE | 2019-06-08 22:12 | OP ---
OPERATIVE REPORT DATE OF PROCEDURE: 06/08/2019. SURGEON: Tavon Almaguer MD CONSUMER LOAN PROCESSOR: Cole Crespo PA-C PREOPERATIVE DIAGNOSIS: Left displaced femoral neck fracture. POSTOPERATIVE DIAGNOSIS: Left displaced femoral neck fracture. PROCEDURE PERFORMED: Left hip hemiarthroplasty. ANESTHESIA: Spinal with sedation. ESTIMATED BLOOD LOSS: 100 mL. TOURNIQUET: None. DRAINS: None. COMPLICATIONS: None apparent. DISPOSITION: Post-Anesthesia Care Unit INDICATIONS: Louise is a very pleasant 74-year-old female. She is an independent ambulator at home. Yesterday she slipped at her home and fell onto her left side. She was brought via ambulance to [facility]. Workup, including x-rays, revealed a displaced femoral neck fracture. She was admitted to my service. Preoperative clearance was done by the medical service. She has been cleared for surgery. Recommendation was for left hip hemiarthroplasty. The risks of the procedure were discussed with her in detail. These risks include but are not limited to risk of infection, nerve damage, bleeding, pain, and a small risk of deep vein thrombosis which could lead to fatal pulmonary embolism. Further risks include periprosthetic fracture and instability in the hip. All of her questions were answered to her satisfaction. Appropriate informed consent was obtained. DESCRIPTION OF PROCEDURE: The patient was identified in the preoperative holding area. Surgical site was marked by both the patient and myself. She was given 1 gram of Ancef IV for prophylactic purposes. She was then transferred to the operative suite. She was placed supine on the operating room table. Spinal anesthetic was then administered and dosed per the anesthesia department without apparent complication. She was then placed in the right lateral decubitus position, well padded in preparation for surgery. The legs were appropriately padded as well. A well-padded axillary roll was placed. The patient's left lower extremity was then prepped and draped in the usual sterile fashion. Standard surgical pause was undertaken to ensure that we were operating on the correct site and that appropriate preoperative antibiotics had been given. All staff in the room were in agreement and we proceeded. The tip of the greater trochanter was identified. A 10 cm incision extending from the tip of the greater trochanter in line with the shaft of the femur was then marked with a surgical pen. Incision was then made with a 10 blade scalpel. Dissection was carried down sharply to the tensor fascia. Hemostasis was achieved with electrocautery. The tensor fascia was then incised in line with the incision. This exposed the underlying trochanteric bursa. A Charnley retractor was then placed. The raphe between the anterior one third and posterior two thirds of the gluteus medius was identified. Utilizing electrocautery, I then took the anterior one third of the gluteus medius in the gluteus medius, gluteus minimus and the anterior hip capsule off as a sleeve. This was a modified anterolateral Hardinge type approach. I then utilized the template to tyler for a freshened femoral neck cut. The reciprocating saw was then utilized to freshen the femoral neck cut. The [place] femoral head was then removed utilizing the corkscrew. The acetabulum was inspected. The acetabular cartilage was in good condition. There were no loose bodies in the acetabulum. I then measured the [place] femoral head for fit. A 42 mm trial was then placed onto the lollipop. It had a good suction fit. The hip was then flexed and externally rotated into a bag on the opposite side of the table. This gave me good exposure to the proximal femur. The box turner was then utilized to gain access to the femoral canal. I started with a 7 mm reamer and reamed up to a size 10 reamer. I then proceeded to broach the proximal femur. I started with a size 7 broach. It was placed in approximately 15 degrees of anteversion. I then incrementally broached up to a size 9 broach. This had an excellent fit in the proximal femur. I then proceeded with trialing. I started with a -3 neck and a 42 head. The hip was very carefully reduced. It was very stable. The leg lengths were approximately equal. It was stable throughout a full range of motion. There was minimal shuck. The hip was then very carefully redislocated. I made a decision to go with a -3 neck, a 42 monopolar head and a size 9 collared stem. The [employer] access services representative then opened the components on the back table. The size 9 Bi- Metric collared stem was then implanted in approximately 15 degrees of anteversion. I then dried the trunnion and the -3 neck and head were assembled on the back table. I then impacted the -3 neck and head onto the carefully dried femoral neck trunnion. The hip was then relocated. Again it was taken through a full range of motion. It was very stable throughout a full range of motion. The legs were approximately equal. There was minimal shuck. At this point time no further work was deemed necessary. We proceeded with closure. The wound was thoroughly irrigated with sterile saline solution with antibiotic added via pulse lavage. The anterior third, gluteus medius, minimus and anterior capsule were all repaired back to the greater trochanter utilizing #5 Ethibond interrupted transosseous suture. The raphe between the anterior and posterior two thirds of the gluteus medius was closed with 0 Vicryl interrupted suture. The Charnley retractor was then removed. Again the wound was thoroughly irrigated. The tensor fascia was then closed with a running #2 Stratafix. The subcutaneous tissue was closed with 2-0 Vicryl interrupted suture and the skin was closed with a running 3-0 Stratafix suture. Dermabond was then applied to the incision. Sterile compressive dressings were then applied and she was placed into a well-padded hip abductor pillow. All sponge and needle counts were deemed correct prior to closure. The patient tolerated procedure without apparent complication. She was transferred to the recovery room in stable condition. MMODL / IJN: [id number] /
[2019-06-09] MEDS: MORPHINE SULFATE 4 MG/ML SYRINGE IV PRN (01:59)
[2019-06-09] MEDS: CYCLOBENZAPRINE 10 MG TAB PO PRN (03:03)
[2019-06-09] MEDS: HYDROmorphone 2 MG/ML 1 ML SYRINGE IVP PRN (05:26)
[2019-06-09] MEDS: LEVOTHYROXINE 88 MCG TAB PO SCH (05:26)
[2019-06-09 07:20] LABS: Anisocytosis Slight; Basophils % (A) 0 %; Eosinophils % (A) 0 %; HCT 30.3 % (34.0-46.0); Hypochromasia Slight; Lymphocytes # (A) 0.9 k/uL (1.0-4.8); Lymphocytes % (A) 7 %; MCH 30.3 pg (25.0-35.0); MCHC 30.5 g/dL (31.0-37.0); MCV 99.6 fL (80.0-100.0); Macrocytosis Slight; Mean Platelet Volume 7.6; Monocytes # (A) 0.5 k/uL (0-1.0); Monocytes % (A) 4 %; Neutrophils # (A) 11.7 k/uL (1.3-7.7); Neutrophils % (A) 88 %; Platelet Count 384 k/uL (150-450); RBC 3.04 m/uL (3.80-5.40); RDW 16.3 % (11.5-15.5); WBC 13.2 k/uL (3.8-10.6)
[2019-06-09 07:29] LABS: HGB 9.2 gm/dL (11.4-16.0)
[2019-06-09] MEDS ORDERED: DRONABINOL 5 MG PO SCH (07:30)
[2019-06-09] MEDS ORDERED: NON FORMULARY DRUG (Omeprazole 20 MG) PO SCH (07:30)
[2019-06-09 07:32] LABS: Calcium 8.5 mg/dL (8.4-10.2); Potassium 3.6 mmol/L (3.5-5.1); Total Bilirubin 0.5 mg/dL (0.2-1.3)
[2019-06-09] MEDS: HYDROcodone/APAP 5-325MG 1 EACH TAB PO PRN ×3 (08:22→20:54)
[2019-06-09] MEDS: FUROSEMIDE 20 MG TAB PO SCH (08:23)
[2019-06-09] MEDS: DRONABINOL 2.5 MG CAP PO SCH ×2 (08:23→16:16)
[2019-06-09] MEDS: FERROUS SULFATE 325 MG TAB PO SCH (08:23)
[2019-06-09] MEDS: hydrOXYzine PAMOATE 25 MG CAP PO SCH ×3 (08:23→20:53)
[2019-06-09] MEDS: buPROPion XL 300 MG TAB.ER.24H PO SCH (08:23)
[2019-06-09] MEDS: MAGNESIUM OXIDE 400 MG TAB PO SCH (08:24)
[2019-06-09] MEDS: PANTOPRAZOLE 40 MG TABLET PO SCH ×2 (08:24→16:16)
[2019-06-09] MEDS: POTASSIUM CHLORIDE ER 10 MEQ TAB.ER.PRT PO SCH (08:24)
[2019-06-09] MEDS: METOPROLOL TARTRATE 25 MG TAB PO SCH (08:24)
[2019-06-09] MEDS: DOCUSATE 100 MG CAP PO SCH (08:24)
[2019-06-09] MEDS: DULoxetine HCL 60 MG CAPSULE.DR PO SCH (08:24)
[2019-06-09] MEDS: CALCIUM CARBONATE 500 MG CHEWABLE PO SCH (08:24)
[2019-06-09] MEDS: MEGESTROL 400 MG/10 ML CUP PO SCH ×3 (08:25→20:54)
[2019-06-09] MEDS: LACTATED RINGERS 1,000 ML IV SCH (08:29)
[2019-06-09] MEDS ORDERED: FERROUS SULFATE 325 MG TAB PO SCH (09:00)
[2019-06-09] MEDS ORDERED: LEVOTHYROXINE 88 MCG TAB PO SCH (09:00)
[2019-06-09] MEDS ORDERED: DULoxetine HCL 60 MG CAPSULE.DR PO SCH (09:00)
[2019-06-09] MEDS ORDERED: POTASSIUM CHLORIDE ER 10 MEQ TAB.ER.PRT PO SCH (09:00)
[2019-06-09] MEDS ORDERED: METHYLCELLULOSE PO SCH (09:00)
[2019-06-09] MEDS ORDERED: [UNRECOGNIZED DRUG - OTHER] PO SCH (09:00)
[2019-06-09] MEDS ORDERED: buPROPion XL 300 MG TAB.ER.24H PO SCH (09:00)
[2019-06-09] MEDS ORDERED: FLUTICASONE 50MCG/SPRAY NASAL 16GM EA NOSTRIL SCH (09:00)
[2019-06-09] MEDS ORDERED: FUROSEMIDE 20 MG TAB PO SCH (09:00)
--- NOTE | 2019-06-09 10:22 | P.PN ---
Subjective Progress Note Date: 06/09/19 This patient is a 74-year-old female with past medical history of GERD, anxiety, depression, chronic pain currently being managed with fentanyl patches and [place], and history of DVT that presented to [facility] via EMS with complaints of left hip pain on 06/07/19. X-rays in the emergency department revealed a left femoral neck fracture. Patient was admitted under the care of Dr. Almaguer with consult placed to internal medicine for medical management. Patient underwent a left hip hemiarthroplasty on 06/08/[address] Almaguer. Today is postoperative day #1. Patient is examined bedside. She states she has not been out of bed yet postoperatively. She states her pain in the left hip is not currently controlled. She states otherwise she has no complaints. She denies chest pain, shortness of breath, nausea, vomiting, fevers, chills. She denies numbness or tingling of the left lower extremity. Vital signs are stable, patient is mildly tachycardic. Objective - Vital Signs Vital signs: Vital Signs Temp 98.2 F 06/09/19 07:00 Pulse 111 H 06/09/19 07:00 Resp 16 06/09/19 07:45 BP 131/69 06/09/19 07:00 Pulse Ox 97 06/09/19 07:00 Intake & Output 06/08/19 06/09/19 06/09/19 18:59 06:59 18:59 Intake Total 1250 300 Output Total 1950 650 Balance -700 -350 Weight 40.823 kg Intake: IV 1250 Intake, IV Titration 300 Amount Lactated Ringers 1,000 ml 300 @ 100 mls/hr IV .Q10H ON LICENSE OF [facility] Rx#:[id number] Output: Urine 1850 650 Estimated Blood Loss 100 Other: Voiding Method Indwelling Catheter Indwelling Catheter Indwelling Catheter - Exam On examination, the patient is lying in bed in no apparent distress. She is alert and oriented 3. On inspection of the left hip, there is a clean, dry, intact surgical dressing in place. Dressing is taken down and reveals a benign- appearing surgical incision. There is no surrounding erythema, warmth, drainage. Patient has good strength and motion of her left ankle. The left lower extremity is warm and well perfused with brisk capillary refill distally. Neurovascular is intact in the left lower extremity. Abduction pillow is in place. Newton catheter in place. Lower extremity compression cuffs in place. - Labs CBC & Chem 7: 06/09/19 06:38 06/09/19 06:38 Labs: Abnormal Lab Results - Last 24 Hours (Table) 06/09/19 06/09/19 Range/Units 06:38 06:38 WBC 13.2 H (3.8-10.6) k/uL RBC 3.04 L (3.80-5.40) m/uL Hgb 9.2 L D (11.4-16.0) gm/dL Hct 30.3 L (34.0-46.0) % MCHC 30.5 L (31.0-37.0) g/dL RDW 16.3 H (11.5-15.5) % Neutrophils # 11.7 H (1.3-7.7) k/uL Lymphocytes # 0.9 L (1.0-4.8) k/uL Sodium 136 L (137-145) mmol/L BUN 21 H (7-17) mg/dL Creatinine 1.23 H (0.52-1.04) mg/dL Glucose 127 H (74-99) mg/dL Total Protein 5.0 L (6.3-8.2) g/dL Albumin 3.0 L (3.5-5.0) g/dL Assessment and Plan Assessment: Left femoral neck fracture status-post left hip hemiarthroplasty on 06/08/19. Postoperative day #1. Plan: - Weightbearing as tolerated on the left lower extremity with a walker. Up with assistance. - Physical therapy for gait and balance training. - Continue posterior hip precautions. Abduction pillow should be in place at all times while laying in bed. - 2 doses of postoperative antibiotic complete. - We will consult pain management in regards to patient's uncontrolled pain. - DVT prophylaxis per internal medicine due to history of DVT. - Anticipate discharge to rehab tomorrow. Patient discussed with Dr. Almaguer.
--- NOTE | 2019-06-09 10:41 | P.PN ---
Subjective Progress Note Date: 06/09/19 This is a 74-year-old female patient of Dr. Eli. Patient presented after sustaining a fall. Patient reports that she was at home she tripped over a vacuum cord and landed on her left hip patient states she laid on the floor for approximately 2 days until someone came to her house and EMS was called. . Patient has a past medical history of asthma, DVT due to control many years ago not currently on treatment GERD, anxiety, depression, panic disorder and chronic pain in which she is on multiple pain medications including fentynl patch. Hip x-ray completed showing impacted mildly angulated approximately migrated transcervical femoral neck fracture of the left. Patient has been admitted to Dr. Almaguer. Plans for surgical intervention today 06/08/2019. Chest x-ray completed showing repeat exam shows that the question E peripheral right midlung was artifactual. No acute process seen. At this time patient is complaining about increased pain to left hip. This is likely contributing to her tachycardia. Will start patient on Lopressor 25 daily. Patient denies any active chest pain or shortness of breath. Patient denies any significant cardiac history. Patient denies irregular rhythm heart attack or CHF. Patient denies asthma or COPD. Patient will need anticoagulation per surgical services due to previous history of DVT and patient being at increased risk postsurgical. Patient does have past medical history of chronic kidney disease stage IV. Current creatinine 1.43 and bun 26, this does appear improved from baseline for patient will continue to monitor continue normal saline at 75. UA was negative. At this time patient denies chest pain or shortness of breath. Patient denies nausea vomiting or diarrhea. Patient denies any urinary burning or frequency. On 06/09/2019 patient is alert and oriented. Patient reports that her pain is still not controlled. Patient is currently a spinal Dilaudid, morphine and [place]. Pain management services have been consulted per orthopedic services. Blood cell slightly elevated at 13.2. Patient denies any acute symptoms will order repeat UA. Heart Rate has improved. Patient currently on Lovenox subcu for DVT prophylaxis will likely be discharged on Xarelto for DVT prophylaxis due to limited movement. This time patient denies chest pain or shortness breath. Patient denies nausea vomiting or diarrhea. Patient denies any urinary burning or frequency Objective - Vital Signs Vital signs: Vital Signs Temp 98.2 F 06/09/19 07:00 Pulse 111 H 06/09/19 07:00 Resp 16 06/09/19 07:45 BP 131/69 06/09/19 07:00 Pulse Ox 97 06/09/19 07:00 Intake & Output 06/08/19 06/09/19 06/09/19 18:59 06:59 18:59 Intake Total 1250 300 Output Total 1950 650 Balance -700 -350 Weight 40.823 kg Intake: IV 1250 Intake, IV Titration 300 Amount Lactated Ringers 1,000 ml 300 @ 100 mls/hr IV .Q10H [facility] Rx#:[id number] Output: Urine 1850 650 Estimated Blood Loss 100 Other: Voiding Method Indwelling Catheter Indwelling Catheter Indwelling Catheter - Exam Head normocephalic Neck supple Lungs clear to auscultation bilaterally no wheezing or crackles Heart regular rate and rhythm S1-S2, no rub or gallop Abdomen is soft nontender nondistended positive bowel sounds no hepatosplenomegaly Extremities no edema. Left hip Dressing is clean dry and intact Neuro alert and orientated to 3 - Labs CBC & Chem 7: 06/09/19 06:38 06/09/19 06:38 Labs: Abnormal Lab Results - Last 24 Hours (Table) 06/09/19 06/09/19 Range/Units 06:38 06:38 WBC 13.2 H (3.8-10.6) k/uL RBC 3.04 L (3.80-5.40) m/uL Hgb 9.2 L D (11.4-16.0) gm/dL Hct 30.3 L (34.0-46.0) % MCHC 30.5 L (31.0-37.0) g/dL RDW 16.3 H (11.5-15.5) % Neutrophils # 11.7 H (1.3-7.7) k/uL Lymphocytes # 0.9 L (1.0-4.8) k/uL Sodium 136 L (137-145) mmol/L BUN 21 H (7-17) mg/dL Creatinine 1.23 H (0.52-1.04) mg/dL Glucose 127 H (74-99) mg/dL Total Protein 5.0 L (6.3-8.2) g/dL Albumin 3.0 L (3.5-5.0) g/dL Assessment and Plan Assessment: 1. Left femoral neck fracture status post fall. Status post hemiarthroplasty of the left hip and 06/08/2019. Patient is currently postop day 1. Weightbearing as tolerated. Patient currently on Lovenox for DVT prophylaxis throughout upon discharge. Patient is currently on fentanyl patch, Dilaudid morphine and [place] for pain control. Patient reports that she still having increased pain. Pain management services have been consulted per orthopedic services. Ambulation and incentive spirometer encouraged 2. Sinus tachycardia likely secondary to pain. Patient denies chest pain. Lopressor 25 mg has been added. heart rate has improved 3. Chronic kidney disease stage IV. Patient's creatinine on admission 1.43 and bun 26 this does appear improved compared to patient's baseline. Continue normal saline at 75 4. History of DVT. Patient reports that she had a history of DVT back when she was on control not currently on any blood thinners. Patient will need prophylaxis DVT prevention post surgery due to increased risk per surgical services 5. History of chronic pain. Patient is managed on fentanyl patches 6. History of anxiety and depression. Home meds resumed 7. History of asthma. No exacerbation at this time 8. History of GERD 9. History of migraines 10. History of laminectomy 11. Leukocytosis. White blood cell elevated at 13.2. Patient denies any acute symptoms will order repeat urinary analysis DVT prophylaxis Lovenox. Patient will likely need rehab upon discharge Pain management service is consulted due to increased pain Patient has been cleared for surgical intervention Thank you for this consultation we'll continue to follow patient closely throughout stay I performed an examination of the patient and discussed their management with the Nurse Practitioner. I have reviewed the Nurse Practitioner's notes and agree with the documented findings and plan of care
[2019-06-09] MEDS ORDERED: FOLIC ACID 1 MG TAB PO SCH (12:00)
[2019-06-09] MEDS ORDERED: THIAMINE 100 MG TAB PO SCH (12:00)
[2019-06-09] MEDS: HYDROmorphone 1 MG/ML 1 ML SYRINGE IVP PRN ×3 (12:07→18:11)
[2019-06-09] MEDS: FOLIC ACID 1 MG TAB PO SCH (12:10)
[2019-06-09] MEDS: THIAMINE 100 MG TAB PO SCH (12:10)
--- NOTE | 2019-06-09 13:54 | P.PAINCN ---
History of Present Illness - Reason for Consult Consult date: 06/09/19 - History of Present Illness This is a 74-year-old patient referred by Dr. Almaguer with a past medical history of GERD, anxiety, depression, chronic kidney disease chronic pain managed with fentanyl patches and [place], and remote history of DVT that presented to [facility] ER via EMS with complaints of left hip pain on 06/07/19. X-rays in the emergency department revealed a left femoral neck fracture. Patient und erwent a left hip hemiarthroplasty on 06/08/[address] Almaguer. Patient was seen and examined at bedside today. Her primary pain complaint is left lower extremity pain, rated as 10/10, stemming from left hip, radiating to entire left lower extremity. She is having significant amount of pain on ambulation. Her current medications include fentanyl patch 100 g per hour, [place] 5/325 one to 2 tablets every 6 when necessary, Dilaudid 2 mg every 6 when necessary, morphine 4 mg every 4 when necessary, Cymbalta 60 mg daily, Flexeril 10 mg 3 times a day when necessary. Patient states that she is getting the most relief from Dilaudid when necessary. The morphine is not helping her pain. She states that this pain is acute in onset, since her fall and is not at all similar to her chronic pain. Patient denies adverse drug effects from medications. In addition to above, 13-point review of systems is also negative for chest pain, shortness of breath, changes in vision, changes in hearing, new onset weakness, abdominal pain, diarrhea, extreme fatigue, malaise, fever, skin changes, homicidal or suicidal ideation, or bowel or bladder incontinence. Physical exam: Vital Signs: Reviewed in EMR GENERAL: Well appearing, in no acute distress, malnourished PSYCH: Mood and affect is appropriate. Awake, alert, and oriented SKIN: Skin color, texture, turgor normal, no rashes or lesions HEENT: Normocephalic, atraumatic. EOM intact CV: No pedal edema RESP: Respirations are unlabored, no audible wheezing GI: Abdomen non-distended MUSCULOSKELETAL: Left hip: Dressing is clean dry and intact. Significantly reduced range of motion, likely due to pain. NEUR: . No loss of sensation is noted. Cranial nerves are grossly intact. Imaging: Reviewed in EMR Assessment: 1. Acute left hip pain, due to left femoral neck fracture, status post left hip hemiarthroplasty on 06/08/2019 2. Chronic pain, maintained on fentanyl patch and [place] when necessary 3. Medical problems include Anxiety, depression, chronic kidney disease, GERD, history of ulcers Plan: Medications: Recommend discontinuing morphine, as patient has chronic kidney disease and states that morphine is not controlling pain. Increase Dilaudid from 2 mg every 6 hours when necessary to 1 mg every 2-3 hours when necessary for 24 hour duration. Continue [place] 5/325 one to 2 tablets every 6 hours when necessary and fentanyl patch. Continue Cymbalta and Flexeril. Add gabapentin 100 mg daily at bedtime. Patient is unable to tolerate anti-inflammatory agents due to history of gastric ulcers. Patient is not a candidate for a block as orthopedics team requests early ambulation. Thank you for allowing us to participate in the care of this patient. Please call with questions. 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 PT IS ABLE TO DRIVE A CAR. 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 Smoking Status: Never smoker Past Alcohol Use History: None Reported Past Drug Use History: None Reported - Past Family History Father Family Medical History: Cancer, Coronary Artery Disease (CAD) Additional Family Medical History / Comment(s): FATHER HAD BLADDER AND KIDNEY CANCER. FATHER HAD TB WHEN HE WAS A CHILD .FATHER AT AGE 87. Mother Family Medical History: Cancer Additional Family Medical History / Comment(s): MOTHER AT AGE 58 OF OVARIAN CANCER. Medications and Allergies Home Medications Medication Instructions Recorded Confirmed Type DULoxetine HCL [Cymbalta] 60 mg PO DAILY 09/17/13 06/07/19 History Omeprazole [PriLOSEC] 20 mg PO AC-BRKFST #30 capsule. 03/17/14 06/07/19 Rx Folic Acid 1 mg PO DAILY@1200 #1 tablet 04/18/14 06/07/19 Rx Thiamine [Vitamin B-1] 100 mg PO DAILY@1200 #1 tablet 04/18/14 06/07/19 Rx fentaNYL 100MCG/HR PATCH 1 patch TRANSDERM Q72H 04/10/15 06/07/19 History [Duragesic 100MCG/HR] Cyanocobalamin [Vitamin B-12 1,000 mcg SQ [id number] 11/06/15 06/07/19 History Injection] Ferrous Sulfate [Iron (65 MG 650 mg PO DAILY 11/06/15 06/07/19 History Elemental)] Fluticasone Nasal [place] [Flonase 2 spr EA NOSTRIL DAILY 11/06/15 06/07/19 History Nasal [place]] Furosemide [Lasix] 20 mg PO DAILY 11/06/15 06/07/19 History HYDROcodone/APAP 5-325MG [[place] 1 tab PO TID PRN 11/06/15 06/07/19 History 5-325] SUMAtriptan SUCCINATE [Imitrex] 50 mg PO DAILY PRN 11/06/15 06/07/19 History buPROPion HCL [Wellbutrin XL] 300 mg PO DAILY 11/06/15 06/07/19 History busPIRone HCL 30 mg PO HS 11/06/15 06/07/19 History Albuterol Inhaler [Ventolin Hfa 2 puff INHALATION RT-Q4H PRN 05/31/17 06/07/19 History Inhaler] Levocetirizine Dihydrochloride 5 mg PO HS 05/31/17 06/07/19 History [Xyzal] Mirtazapine [Remeron Soluspan] 60 mg PO HS 05/31/17 06/07/19 History Potassium Chloride ER [K-Dur 10] 30 meq PO DAILY 04/01/19 06/07/19 History Docusate [Colace] 100 mg PO DAILY 30 Days #30 cap 04/07/19 06/07/19 Rx Calcitriol 1 mcg PO MOWEFR 06/07/19 06/07/19 History Calcium/Magnesium 250mg/300mg 1 tab PO DAILY 06/07/19 06/07/19 History Dronabinol [Marinol] 5 mg PO AC-BID 06/07/19 06/07/19 History Ergocalciferol [Vitamin D2 50,000 units PO QMONTH 06/07/19 06/07/19 History (DRISDOL)] Ipratropium-Albuterol Nebulize 3 ml INHALATION RT-QID PRN 06/07/19 06/07/19 History [Duoneb 0.5 mg-3 mg/3 ml Soln] Levothyroxine Sodium [Synthroid] 88 mcg PO DAILY 06/07/19 06/07/19 History Megestrol Acetate 200 mg PO TID 06/07/19 06/07/19 History Methylcellulose (with Sugar) 2 gm PO DAILY 06/07/19 06/07/19 History [Citrucel Powder] Metolazone [Zaroxolyn] 2.5 mg PO Q48H 06/07/19 06/07/19 History cloNIDine 0.1 MG/24HR PATCH 1 patch TRANSDERM REYNA 06/07/19 06/07/19 History [Catapres-TTS] hydrOXYzine PAMOATE [Vistaril] 50 mg PO TID PRN 06/07/19 06/07/19 History Rivaroxaban [Xarelto] 10 mg PO DAILY 30 Days #30 tab 06/08/19 Rx Allergies Allergy/AdvReac Type Severity Reaction Status Date / Time poliomyelitis vaccine, live Allergy Unknown Verified 06/08/19 11:11 oral Childhood [poliomyelitis vaccine,live] DUST Allergy Itching Uncoded 06/08/19 11:11 MOLDS Allergy Itching Uncoded 06/08/19 11:11 Physical Exam Vitals: Vital Signs Temp Pulse Resp BP Pulse Ox 06/09/19 07:45 16 06/09/19 07:00 98.2 F 111 H 16 131/69 97 06/09/19 03:04 98.5 F 115 H 14 105/70 98 06/08/19 20:10 98.2 F 92 18 127/76 95 06/08/19 16:30 91 175/75 100 06/08/19 16:15 90 169/77 96 06/08/19 16:00 88 150/80 99 06/08/19 15:45 85 132/81 97 06/08/19 15:30 90 163/73 96 06/08/19 15:15 88 154/80 98 06/08/19 15:00 80 172/87 97 06/08/19 14:45 97.5 F L 78 16 164/86 97 06/08/19 14:01 74 14 153/83 97 06/08/19 13:45 70 16 146/74 97 Intake and Output 06/08/19 06/09/19 06/09/19 22:59 06:59 14:59 Intake Total 300 Output Total 650 Balance 300 -650 Intake: Intake, IV Titration 300 Amount Lactated Ringers 1,000 ml 300 @ 100 mls/hr IV .Q10H [facility] Rx#:[id number] Output: Urine 650 Other: Voiding Method Indwelling Catheter Indwelling Catheter Indwelling Catheter Results CBC & Chem 7: 06/09/19 06:38 06/09/19 06:38 Labs: Abnormal Lab Results - Last 24 Hours (Table) 06/09/19 06/09/19 Range/Units 06:38 06:38 WBC 13.2 H (3.8-10.6) k/uL RBC 3.04 L (3.80-5.40) m/uL Hgb 9.2 L D (11.4-16.0) gm/dL Hct 30.3 L (34.0-46.0) % MCHC 30.5 L (31.0-37.0) g/dL RDW 16.3 H (11.5-15.5) % Neutrophils # 11.7 H (1.3-7.7) k/uL Lymphocytes # 0.9 L (1.0-4.8) k/uL Sodium 136 L (137-145) mmol/L BUN 21 H (7-17) mg/dL Creatinine 1.23 H (0.52-1.04) mg/dL Glucose 127 H (74-99) mg/dL Total Protein 5.0 L (6.3-8.2) g/dL Albumin 3.0 L (3.5-5.0) g/dL PQRS Measure Charge Sheet PQRS Narrative: Smoking Status Never smoker Do You Want the Pneumonia Vaccine Up to Date Vaccine AT THIS TIME? Blood Pressure [Right Arm 168/83 Sitting] Blood Pressure [Left Arm] 131/69 Blood Pressure 155/82 Pain Intensity [Left Hip] 8 Pain Intensity 10 Pain Scale Used [Left Hip] Numeric (1 - 10) Pain Scale Used Numeric (1 - 10) Scale Used Numeric (1 - 10) Home Medications: Ambulatory Orders DULoxetine HCL [Cymbalta] 60 mg PO DAILY 09/17/13 Omeprazole [PriLOSEC] 20 mg PO INDIRA-MUSA #30 capsule. 03/17/14 Folic Acid 1 mg PO DAILY@1200 #1 tablet 04/18/14 Thiamine [Vitamin B-1] 100 mg PO DAILY@1200 #1 tablet 04/18/14 fentaNYL 100MCG/HR PATCH [Duragesic 100MCG/HR] 1 patch TRANSDERM Q72H 04/10/15 Cyanocobalamin [Vitamin B-12 Injection] 1,000 mcg SQ [id number] 11/06/15 Ferrous Sulfate [Iron (65 MG Elemental)] 650 mg PO DAILY 11/06/15 Fluticasone Nasal [place] [Flonase Nasal [place]] 2 spr EA NOSTRIL DAILY 11/06/15 Furosemide [Lasix] 20 mg PO DAILY 11/06/15 HYDROcodone/APAP 5-325MG [[place] 5-325] 1 tab PO TID PRN 11/06/15 SUMAtriptan SUCCINATE [Imitrex] 50 mg PO DAILY PRN 11/06/15 buPROPion HCL [Wellbutrin XL] 300 mg PO DAILY 11/06/15 busPIRone HCL 30 mg PO HS 11/06/15 Albuterol Inhaler [Ventolin Hfa Inhaler] 2 puff INHALATION RT-Q4H PRN 05/31/17 Levocetirizine Dihydrochloride [Xyzal] 5 mg PO HS 05/31/17 Mirtazapine [Remeron Soluspan] 60 mg PO HS 05/31/17 Potassium Chloride ER [K-Dur 10] 30 meq PO DAILY 04/01/19 Docusate [Colace] 100 mg PO DAILY 30 Days #30 cap 04/07/19 Calcitriol 1 mcg PO MOWEFR 06/07/19 Calcium/Magnesium 250mg/300mg 1 tab PO DAILY 06/07/19 Dronabinol [Marinol] 5 mg PO AC-BID 06/07/19 Ergocalciferol [Vitamin D2 (DRISDOL)] 50,000 units PO QMONTH 06/07/19 Ipratropium-Albuterol Nebulize [Duoneb 0.5 mg-3 mg/3 ml Soln] 3 ml INHALATION RT-QID PRN 06/07/19 Levothyroxine Sodium [Synthroid] 88 mcg PO DAILY 06/07/19 Megestrol Acetate 200 mg PO TID 06/07/19 Methylcellulose (with Sugar) [Citrucel Powder] 2 gm PO DAILY 06/07/19 Metolazone [Zaroxolyn] 2.5 mg PO Q48H 06/07/19 cloNIDine 0.1 MG/24HR PATCH [Catapres-TTS] 1 patch TRANSDERM REYNA 06/07/19 hydrOXYzine PAMOATE [Vistaril] 50 mg PO TID PRN 06/07/19 Rivaroxaban [Xarelto] 10 mg PO DAILY 30 Days #30 tab 06/08/19
[2019-06-09 14:54] LABS: Appearance,Urine Clear (Clear); Color,Urine Yellow; Protein,Urine Negative (Negative); Specific Gravity,Urine 1.015 (1.001-1.035)
[2019-06-09 14:55] LABS: Bilirubin,Urine Negative (Negative); Blood,Urine Negative (Negative); Glucose,Urine (UA) Negative (Negative); Ketones,Urine Negative (Negative); Leukocyte Esterase,Urine Negative (Negative); Nitrite,Urine Negative (Negative); Urobilinogen,Urine <2.0 mg/dL (<2.0)
--- NOTE | 2019-06-09 16:21 | P.CONS ---
History of Present Illness - Chief Complaint Walking difficulty - History of Present Illness I had the opportunity to see patient for inpatient rehab consultation with regard to walking difficulty. She was admitted to [facility] June 07 history of fall at home and left hip pain. X-ray demonstrated femoral neck fracture. Evaluated by Dr. Almaguer and on June 08 underwent left ADEOLA. Seen by pain monika atkinson, Dr. Bender. PT reports two-person minimal assistance for functional mobility, transfers, gait 4 feet with roller walker. Patient reports that she is unable to put weight on the left foot or leg. OT reports minimal assistance for upper dressing, total assist for lower dressing and toileting, moderate assistance for bathing and two-person moderate assistance functional mobility and transfers. Previous functional history as elicited from patient: 74-year-old right-handed white female who is lives in a first-floor apartment alone. Retired. Describes independent with own cooking, laundry, driving, tub bath and gait without device previously. Dr. Eli is regular doctor. Denies tobacco or alcohol. Family history of father was a smoker. Review of Systems Review of systems: ENT: Denies sneezes or discharge. Eyes: Denies discharge or photophobia. Cardiac: Denies chest pain or palpitation. Pulmonary: Denies cough or shortness of breath. Breast: Denies discharge or lumps. Gastrointestinal: Denies nausea, emesis, constipation, diarrhea. Genitourinary: Denies discharge or frequency. Musculoskeletal: Left hip and leg pain. Neurologic: Denies motor or sensory change. Endocrine: Denies shakes or sweats. Oncology: Denies cancers. Dermatologic: Denies rash, itching, pruritus. ALLERGY/immunology: Denies sneezes, rashes. 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 PT IS ABLE TO DRIVE A CAR. 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 Smoking Status: Never smoker Past Alcohol Use History: None Reported Past Drug Use History: None Reported - Past Family History Father Family Medical History: Cancer, Coronary Artery Disease (CAD) Additional Family Medical History / Comment(s): FATHER HAD BLADDER AND KIDNEY CANCER. FATHER HAD TB WHEN HE WAS A CHILD .FATHER AT AGE 87. Mother Family Medical History: Cancer Additional Family Medical History / Comment(s): MOTHER AT AGE 58 OF OVARIAN CANCER. Medications and Allergies Home Medications Medication Instructions Recorded Confirmed Type DULoxetine HCL [Cymbalta] 60 mg PO DAILY 09/17/13 06/07/19 History Omeprazole [PriLOSEC] 20 mg PO AC-BRKFST #30 capsule. 03/17/14 06/07/19 Rx Folic Acid 1 mg PO DAILY@1200 #1 tablet 04/18/14 06/07/19 Rx Thiamine [Vitamin B-1] 100 mg PO DAILY@1200 #1 tablet 04/18/14 06/07/19 Rx fentaNYL 100MCG/HR PATCH 1 patch TRANSDERM Q72H 04/10/15 06/07/19 History [Duragesic 100MCG/HR] Cyanocobalamin [Vitamin B-12 1,000 mcg SQ [id number] 11/06/15 06/07/19 History Injection] Ferrous Sulfate [Iron (65 MG 650 mg PO DAILY 11/06/15 06/07/19 History Elemental)] Fluticasone Nasal [place] [Flonase 2 spr EA NOSTRIL DAILY 11/06/15 06/07/19 History Nasal [place]] Furosemide [Lasix] 20 mg PO DAILY 11/06/15 06/07/19 History HYDROcodone/APAP 5-325MG [[place] 1 tab PO TID PRN 11/06/15 06/07/19 History 5-325] SUMAtriptan SUCCINATE [Imitrex] 50 mg PO DAILY PRN 11/06/15 06/07/19 History buPROPion HCL [Wellbutrin XL] 300 mg PO DAILY 11/06/15 06/07/19 History busPIRone HCL 30 mg PO HS 11/06/15 06/07/19 History Albuterol Inhaler [Ventolin Hfa 2 puff INHALATION RT-Q4H PRN 05/31/17 06/07/19 History Inhaler] Levocetirizine Dihydrochloride 5 mg PO HS 05/31/17 06/07/19 History [Xyzal] Mirtazapine [Remeron Soluspan] 60 mg PO HS 05/31/17 06/07/19 History Potassium Chloride ER [K-Dur 10] 30 meq PO DAILY 04/01/19 06/07/19 History Docusate [Colace] 100 mg PO DAILY 30 Days #30 cap 04/07/19 06/07/19 Rx Calcitriol 1 mcg PO MOWEFR 06/07/19 06/07/19 History Calcium/Magnesium 250mg/300mg 1 tab PO DAILY 06/07/19 06/07/19 History Dronabinol [Marinol] 5 mg PO AC-BID 06/07/19 06/07/19 History Ergocalciferol [Vitamin D2 50,000 units PO QMONTH 06/07/19 06/07/19 History (DRISDOL)] Ipratropium-Albuterol Nebulize 3 ml INHALATION RT-QID PRN 06/07/19 06/07/19 History [Duoneb 0.5 mg-3 mg/3 ml Soln] Levothyroxine Sodium [Synthroid] 88 mcg PO DAILY 06/07/19 06/07/19 History Megestrol Acetate 200 mg PO TID 06/07/19 06/07/19 History Methylcellulose (with Sugar) 2 gm PO DAILY 06/07/19 06/07/19 History [Citrucel Powder] Metolazone [Zaroxolyn] 2.5 mg PO Q48H 06/07/19 06/07/19 History cloNIDine 0.1 MG/24HR PATCH 1 patch TRANSDERM REYNA 06/07/19 06/07/19 History [Catapres-TTS] hydrOXYzine PAMOATE [Vistaril] 50 mg PO TID PRN 06/07/19 06/07/19 History Rivaroxaban [Xarelto] 10 mg PO DAILY 30 Days #30 tab 06/08/19 Rx Allergies Allergy/AdvReac Type Severity Reaction Status Date / Time poliomyelitis vaccine, live Allergy Unknown Verified 06/08/19 11:11 oral Childhood [poliomyelitis vaccine,live] DUST Allergy Itching Uncoded 06/08/19 11:11 MOLDS Allergy Itching Uncoded 06/08/19 11:11 Physical Exam Vitals: Vital Signs Temp Pulse Resp BP Pulse Ox 06/09/19 14:58 97.6 F 93 16 94/57 99 06/09/19 07:45 16 06/09/19 07:00 98.2 F 111 H 16 131/69 97 06/09/19 03:04 98.5 F 115 H 14 105/70 98 06/08/19 20:10 98.2 F 92 18 127/76 95 06/08/19 16:30 91 175/75 100 Intake and Output 06/09/19 06/09/19 06/09/19 06:59 14:59 22:59 Output Total 650 Balance -650 Output: Urine 650 Other: Voiding Method Indwelling Catheter Indwelling Catheter Skin: Atrophic, intact. General: Thin build and comfortable appearance. Head: Normocephalic, atraumatic. Eyes: Symmetric. Pupils equal round. Ears: Symmetric. Hearing within normal limits. Mouth: Clear. Neck: Supple. Carotid without bruit. Cardiac: Regular rate and rhythm. Lungs: Clear anteriorly and posteriorly. Abdomen: Soft active nontender. Extremities: Normal tone. Neurological: Mental status: Alert, cooperative, pleasant. Cranial nerves: Symmetric facial tone and trapezius. Motor: Can actively elevate both arms and right leg. Left leg poor due to discomfort produced a hip and leg. Sensation: Intact throughout. DTRs: Symmetric and equal throughout. Mobility: Did not attempt to stand from Steph chair by myself. Results CBC & Chem 7: 06/09/19 06:38 06/09/19 06:38 Labs: Abnormal Lab Results - Last 24 Hours (Table) 06/09/19 06/09/19 Range/Units 06:38 06:38 WBC 13.2 H (3.8-10.6) k/uL RBC 3.04 L (3.80-5.40) m/uL Hgb 9.2 L D (11.4-16.0) gm/dL Hct 30.3 L (34.0-46.0) % MCHC 30.5 L (31.0-37.0) g/dL RDW 16.3 H (11.5-15.5) % Neutrophils # 11.7 H (1.3-7.7) k/uL Lymphocytes # 0.9 L (1.0-4.8) k/uL Sodium 136 L (137-145) mmol/L BUN 21 H (7-17) mg/dL Creatinine 1.23 H (0.52-1.04) mg/dL Glucose 127 H (74-99) mg/dL Total Protein 5.0 L (6.3-8.2) g/dL Albumin 3.0 L (3.5-5.0) g/dL Assessment and Plan (1) Fracture of femoral neck, left, closed Current Visit: Yes Status: Acute Code(s): S72.002A - FRACTURE OF UNSP PART OF NECK OF LEFT FEMUR, INIT SNOMED Code(s): 142223007 (2) History of lumbar fusion Current Visit: Yes Status: Acute Code(s): Z98.1 - ARTHRODESIS STATUS SNOMED Code(s): 77637930131703 Plan: Impression: 1. Walking difficulty. 2. Left femoral neck fracture status post ADEOLA. 3. Lumbar disc disease with history of fusion. 4. History of DVT. 5. Asthma. 6. GERD. Comments and plan: At this time PT and OT are ongoing. Safety concerns noted. Patient is discussed interest in inpatient rehab. We will review with insurance criteria.
[2019-06-09] MEDS: busPIRone HCl 10 MG TAB PO SCH (20:51)
[2019-06-09] MEDS: ENOXAPARIN 40 MG/0.4 ML SYRINGE SQ SCH (20:51)
[2019-06-09] MEDS: MIRTAZAPINE 15 MG TAB PO SCH (20:52)
[2019-06-09] MEDS: LORATADINE 10 MG TAB PO SCH (20:52)
[2019-06-09] MEDS: SENNOSIDES-DOCUSATE SODIUM 1 EACH TAB PO SCH (20:53)
[2019-06-09] MEDS ORDERED: GABAPENTIN 100 MG CAP PO SCH (21:00)
[2019-06-10] MEDS: HYDROmorphone 1 MG/ML 1 ML SYRINGE IVP PRN ×3 (00:28→10:46)
[2019-06-10] MEDS: LACTATED RINGERS 1,000 ML IV SCH ×3 (04:41→15:36)
[2019-06-10] MEDS: LEVOTHYROXINE 88 MCG TAB PO SCH (05:53)
[2019-06-10 07:22] LABS: Anisocytosis Slight; Basophils # (A) 0.1 k/uL (0-0.2); Basophils % (A) 0 %; Eosinophils # (A) 0.3 k/uL (0-0.7); Eosinophils % (A) 2 %; HCT 23.8 % (34.0-46.0); Hypochromasia Slight; Lymphocytes # (A) 2.3 k/uL (1.0-4.8); Lymphocytes % (A) 20 %; MCH 31.2 pg (25.0-35.0); MCHC 31.6 g/dL (31.0-37.0); MCV 98.8 fL (80.0-100.0); Macrocytosis Slight; Mean Platelet Volume 7.5; Monocytes # (A) 0.7 k/uL (0-1.0); Monocytes % (A) 6 %; Neutrophils # (A) 7.6 k/uL (1.3-7.7); Neutrophils % (A) 69 %; Platelet Count 329 k/uL (150-450); RBC 2.41 m/uL (3.80-5.40); RDW 16.3 % (11.5-15.5); WBC 11.1 k/uL (3.8-10.6)
[2019-06-10 07:35] LABS: HGB 7.5 gm/dL (11.4-16.0)
[2019-06-10 07:38] LABS: ALT <6 U/L (4-34); AST 18 U/L (14-36); African American GFR (CKD) 28 (>60 ml/min/1.73 sqM); Albumin 2.8 g/dL (3.5-5.0); Alkaline Phosphatase 87 U/L (38-126); Anion Gap 7 mmol/L; Blood Urea Nitrogen 32 mg/dL (7-17); Calcium 8.5 mg/dL (8.4-10.2); Carbon Dioxide 24 mmol/L (22-30); Chloride 105 mmol/L (98-107); Glucose 96 mg/dL (74-99); Non-African American GFR(CKD) 25 (>60 ml/min/1.73 sqM); Potassium 4.5 mmol/L (3.5-5.1); Sodium 136 mmol/L (137-145); Total Bilirubin 0.4 mg/dL (0.2-1.3); Total Protein 4.9 g/dL (6.3-8.2)
[2019-06-10] MEDS: DRONABINOL 2.5 MG CAP PO SCH ×2 (08:35→17:06)
[2019-06-10] MEDS: DULoxetine HCL 60 MG CAPSULE.DR PO SCH (08:36)
[2019-06-10] MEDS: DOCUSATE 100 MG CAP PO SCH (08:36)
[2019-06-10] MEDS: buPROPion XL 300 MG TAB.ER.24H PO SCH (08:36)
[2019-06-10] MEDS: CALCIUM CARBONATE 500 MG CHEWABLE PO SCH (08:36)
[2019-06-10] MEDS: PANTOPRAZOLE 40 MG TABLET PO SCH (08:36)
[2019-06-10] MEDS: FUROSEMIDE 20 MG TAB PO SCH (08:37)
[2019-06-10] MEDS: MAGNESIUM OXIDE 400 MG TAB PO SCH (08:37)
[2019-06-10] MEDS: hydrOXYzine PAMOATE 25 MG CAP PO SCH ×2 (08:37→17:06)
[2019-06-10] MEDS: FERROUS SULFATE 325 MG TAB PO SCH (08:37)
[2019-06-10] MEDS: METOPROLOL TARTRATE 25 MG TAB PO SCH (08:38)
[2019-06-10] MEDS: HYDROcodone/APAP 5-325MG 1 EACH TAB PO PRN ×2 (08:38→13:59)
[2019-06-10] MEDS: MEGESTROL 400 MG/10 ML CUP PO SCH ×2 (08:41→17:06)
[2019-06-10 09:35] VITALS: BP 123/58
[2019-06-10] MEDS: POTASSIUM CHLORIDE ER 10 MEQ TAB.ER.PRT PO SCH (10:34)
[2019-06-10] MEDS: THIAMINE 100 MG TAB PO SCH (12:17)
[2019-06-10] MEDS: FOLIC ACID 1 MG TAB PO SCH (12:17)
--- NOTE | 2019-06-10 14:49 | P.PN ---
Subjective Progress Note Date: 06/10/19 This is a 74-year-old female patient of Dr. Eli. Patient presented after sustaining a fall. Patient reports that she was at home she tripped over a vacuum cord and landed on her left hip patient states she laid on the floor for approximately 2 days until someone came to her house and EMS was called. . Patient has a past medical history of asthma, DVT due to control many years ago not currently on treatment GERD, anxiety, depression, panic disorder and chronic pain in which she is on multiple pain medications including fentynl patch. Hip x-ray completed showing impacted mildly angulated approximately migrated transcervical femoral neck fracture of the left. Patient has been admitted to Dr. Almaguer. Plans for surgical intervention today 06/08/2019. Chest x-ray completed showing repeat exam shows that the question E peripheral right midlung was artifactual. No acute process seen. At this time patient is complaining about increased pain to left hip. This is likely contributing to her tachycardia. Will start patient on Lopressor 25 daily. Patient denies any active chest pain or shortness of breath. Patient denies any significant cardiac history. Patient denies irregular rhythm heart attack or CHF. Patient denies asthma or COPD. Patient will need anticoagulation per surgical services due to previous history of DVT and patient being at increased risk postsurgical. Patient does have past medical history of chronic kidney disease stage IV. Current creatinine 1.43 and bun 26, this does appear improved from baseline for patient will continue to monitor continue normal saline at 75. UA was negative. At this time patient denies chest pain or shortness of breath. Patient denies nausea vomiting or diarrhea. Patient denies any urinary burning or frequency. On 06/09/2019 patient is alert and oriented. Patient reports that her pain is still not controlled. Patient is currently a spinal Dilaudid, morphine and Verona. Pain management services have been consulted per orthopedic services. Blood cell slightly elevated at 13.2. Patient denies any acute symptoms will order repeat UA. Heart Rate has improved. Patient currently on Lovenox subcu for DVT prophylaxis will likely be discharged on Xarelto for DVT prophylaxis due to limited movement. This time patient denies chest pain or shortness breath. Patient denies nausea vomiting or diarrhea. Patient denies any urinary burning or frequency On 06/10/2019 patient is alert and oriented 3. Patient was evaluated by pain services. Patient currently on Dilaudid 1 mg every 3 hours when necessary, f entanyl patch 100 mics, Verona 1-2 tabs every 6 and Neurontin 100 mg by mouth daily and Cymbalta. Patient has been accepted to inpatient rehab with Dr. Dela Cruz. Repeat UA negative. Hemoglobin low at 7.5 likely secondary to surgery no signs of bleeding. Patient is maintained on ferrous sulfate. Patient's creatinine also slightly elevated at 1.99, patient does have chronic kidney disease and does fluctuate with her levels. Patient will need close follow-up at rehab. Orthopedic service is planning discharge to inpatient rehab today. Patient will be DC'd on Xarelto for DVT prophylaxis. Objective - Vital Signs Vital signs: Vital Signs Temp 99.0 F 06/10/19 09:34 Pulse 99 06/10/19 09:34 Resp 18 06/10/19 09:34 BP 123/58 06/10/19 09:34 Pulse Ox 99 06/10/19 09:34 Intake & Output 06/09/19 06/10/19 06/10/19 18:59 06:59 18:59 Intake Total 400 Output Total 500 Balance -500 400 Intake: Intake, IV Titration 400 Amount Lactated Ringers 1,000 ml 400 @ 100 mls/hr IV .Q10H CHAD Rx#:[id number] Output: Urine 500 Other: Voiding Method Indwelling Catheter Indwelling Catheter Indwelling Catheter # Voids 1 - Exam Head normocephalic Neck supple Lungs clear to auscultation bilaterally no wheezing or crackles Heart regular rate and rhythm S1-S2, no rub or gallop Abdomen is soft nontender nondistended positive bowel sounds no hepatosplenomegaly Extremities no edema. Left hip Dressing is clean dry and intact Neuro alert and orientated to 3 - Labs CBC & Chem 7: 06/10/19 06:52 06/10/19 06:52 Labs: Abnormal Lab Results - Last 24 Hours (Table) 06/10/19 06/10/19 Range/Units 06:52 06:52 WBC 11.1 H (3.8-10.6) k/uL RBC 2.41 L (3.80-5.40) m/uL Hgb 7.5 L D (11.4-16.0) gm/dL Hct 23.8 L (34.0-46.0) % RDW 16.3 H (11.5-15.5) % Sodium 136 L (137-145) mmol/L BUN 32 H (7-17) mg/dL Creatinine 1.99 H (0.52-1.04) mg/dL Total Protein 4.9 L (6.3-8.2) g/dL Albumin 2.8 L (3.5-5.0) g/dL Assessment and Plan Assessment: 1. Left femoral neck fracture status post fall. Status post hemiarthroplasty of the left hip and 06/08/2019. Patient is currently postop day 1. Weightbearing as tolerated. Patient currently on Lovenox for DVT prophylaxis throughout upon discharge. Patient is currently on fentanyl patch, Dilaudid mo rphine and Verona for pain control. Patient reports that she still having increased pain. Pain management services have been consulted per orthopedic services. Ambulation and incentive spirometer encouraged 2. Sinus tachycardia likely secondary to pain. Patient denies chest pain. Lopressor 25 mg has been added. heart rate has improved. Resolved 3. Chronic kidney disease stage IV. Patient's creatinine on admission 1.43 and bun 26 this does appear improved compared to patient's baseline. Creatinine increasing to 1.99 and bun 32. Patient appears to fluctuate with her levels. Patient will need close follow-up at rehab 4. History of DVT. Patient reports that she had a history of DVT back when she was on control not currently on any blood thinners. Patient will need prophylaxis DVT prevention post surgery due to increased risk per surgical services. Patient will be DC'd on Xarelto 10 mg daily for DVT prophylaxis 5. History of chronic pain. Patient is managed on fentanyl patches. Pain services consulted for pain management. Patient currently on Dilaudid, Ver[place], fentanyl patch, Cymbalta, Flexeril and Neurontin per pain service recommendations 6. History of anxiety and depression. Home meds resumed 7. History of asthma. No exacerbation at this time 8. History of GERD 9. History of migraines 10. History of laminectomy 11. Leukocytosis. White blood cell elevated at 13.2. Patient denies any acute symptoms will order repeat urinary analysis. Repeat UA negative. WBC 11.1 Patient to be DC'd to inpatient rehab with Dr. Dela Cruz I performed an examination of the patient and discussed their management with the Nurse Practitioner. I have reviewed the Nurse Practitioner's notes and agree with the documented findings and plan of care
--- NOTE | 2019-06-10 15:18 | P.DS ---
Providers Date of admission: 06/07/19 14:26 Expected date of discharge: 06/10/19 Attending physician: Tavon Almaguer Consults: 06/07/19 14:27 Consult Physician Urgent Consulting Provider: Palmer Desir Consult Reason/Comments: medical care Do you want consulting provider notified?: Yes 06/09/19 14:08 Consult Physician Routine Consulting Provider: Kevin Ramon Consult Reason/Comments: post left hip, decrease mobility Do you want consulting provider notified?: Yes Primary care physician: Ale Eli [facility] Course: This is an 74-year-old female who presented on 06/07/19 after falling and sustaining injury to the left hip. On exam and x-ray in the emergency department she was found to have a left femoral neck fracture. Patient was admitted under the care of Dr. Almaguer for surgical intervention and care, with a consult placed to internal medicine for perioperative medical management. The patient is taken to surgery on 06/09/19 for hemiarthroplasty of the left hip. The procedure is performed without complication or sequelae. The patient is doing well postoperatively. She continues to require maximum assist with physical therapy. Pain management was consult for perioperative pain management. Vital signs are stable on postop day #3. Patient is examined bedside this morning. Patient states her pain is slightly better this morning, she is able to sleep last night. She has not yet been up with physical therapy this morning. She states she was up to the bedside chair yesterday. She is tolerating her diet well. She denies chest pain, shortness of breath, nausea, vomiting, numbness or tingling of the left lower extremity. Vital signs stable. Patient is examined bedside. Patient is lying in bed in no distress. She is alert and oriented 3. On inspection of the left hip, there is a clean dressing in place. Dressing is taken down and reveals a benign-appearing surgical incision. There is no surrounding erythema, warmth, drainage. There is tenderness on palpation of the left hip and thigh. Patient has good strength and motion of her left ankle and toes. Left lower extremity is warm and well- perfused with brisk capillary refill distally, dorsalis pedis pulse palpable. Neurovascular is intact of the left lower extremity Calf soft and nontender. Lower extremity compression cuffs in place bilaterally. The patient is discharged to inpatient rehab, pending medical clearance today. Please refer to the med rec for accurate list of medications. Patient Condition at Discharge: Fair Plan - Discharge Summary Discharge Rx Participant: Yes New Discharge Prescriptions: New Rivaroxaban [Xarelto] 10 mg PO DAILY 30 Days #30 tab Metoprolol Tartrate [Lopressor] 25 mg PO DAILY tab Pantoprazole [Protonix] 40 mg PO AC-BID tablet. Senana-Docusate Sodium [Senokot-S] 2 each PO HS tab Continue DULoxetine HCL [Cymbalta] 60 mg PO DAILY Omeprazole [PriLOSEC] 20 mg PO AC-BRKFST #30 capsule. Folic Acid 1 mg PO DAILY@1200 #1 tablet Thiamine [Vitamin B-1] 100 mg PO DAILY@1200 #1 tablet SUMAtriptan SUCCINATE [Imitrex] 50 mg PO DAILY PRN PRN Reason: Migraine Headache buPROPion HCL [Wellbutrin XL] 300 mg PO DAILY Furosemide [Lasix] 20 mg PO DAILY Fluticasone Nasal [place] [Flonase Nasal [place]] 2 spr EA NOSTRIL DAILY Ferrous Sulfate [Iron (65 MG Elemental)] 650 mg PO DAILY Cyanocobalamin [Vitamin B-12 Injection] 1,000 mcg SQ [id number] busPIRone HCL 30 mg PO HS Levocetirizine Dihydrochloride [Xyzal] 5 mg PO HS Albuterol Inhaler [Ventolin Hfa Inhaler] 2 puff INHALATION RT-Q4H PRN PRN Reason: Shortness Of Breath Mirtazapine [Remeron Soluspan] 60 mg PO HS Potassium Chloride ER [K-Dur 10] 30 meq PO DAILY Docusate [Colace] 100 mg PO DAILY 30 Days #30 cap Calcium/Magnesium 250mg/300mg 1 tab PO DAILY Calcitriol 1 mcg PO MOWEFR Ergocalciferol [Vitamin D2 (DRISDOL)] 50,000 units PO QMONTH hydrOXYzine PAMOATE [Vistaril] 50 mg PO TID PRN PRN Reason: Anxiety Ipratropium-Albuterol Nebulize [Duoneb 0.5 mg-3 mg/3 ml Soln] 3 ml INHALATION RT-QID PRN PRN Reason: Shortness Of Breath OR cough Levothyroxine Sodium [Synthroid] 88 mcg PO DAILY Megestrol Acetate 200 mg PO TID Methylcellulose (with Sugar) [Citrucel Powder] 2 gm PO DAILY Metolazone [Zaroxolyn] 2.5 mg PO Q48H Dronabinol [Marinol] 5 mg PO AC-BID cloNIDine 0.1 MG/24HR PATCH [Catapres-TTS] 1 patch TRANSDERM REYNA No Action fentaNYL 100MCG/HR PATCH [Duragesic 100MCG/HR] 1 patch TRANSDERM Q72H HYDROcodone/APAP 5-325MG [[place] 5-325] 1 tab PO TID PRN PRN Reason: Pain Discharge Medication List DULoxetine HCL [Cymbalta] 60 mg PO DAILY 09/17/13 [History] Omeprazole [PriLOSEC] 20 mg PO AC-BRKFST #30 capsule.dr 03/17/14 [Rx] Folic Acid 1 mg PO DAILY@1200 #1 tablet 04/18/14 [Rx] Thiamine [Vitamin B-1] 100 mg PO DAILY@1200 #1 tablet 04/18/14 [Rx] fentaNYL 100MCG/HR PATCH [Duragesic 100MCG/HR] 1 patch TRANSDERM Q72H 04/10/15 [History] Cyanocobalamin [Vitamin B-12 Injection] 1,000 mcg SQ [id number] 11/06/15 [History] Ferrous Sulfate [Iron (65 MG Elemental)] 650 mg PO DAILY 11/06/15 [History] Fluticasone Nasal [place] [Flonase Nasal [place]] 2 spr EA NOSTRIL DAILY 11/06/15 [History] Furosemide [Lasix] 20 mg PO DAILY 11/06/15 [History] HYDROcodone/APAP 5-325MG [[place] 5-325] 1 tab PO TID PRN 11/06/15 [History] SUMAtriptan SUCCINATE [Imitrex] 50 mg PO DAILY PRN 11/06/15 [History] buPROPion HCL [Wellbutrin XL] 300 mg PO DAILY 11/06/15 [History] busPIRone HCL 30 mg PO HS 11/06/15 [History] Albuterol Inhaler [Ventolin Hfa Inhaler] 2 puff INHALATION RT-Q4H PRN 05/31/17 [History] Levocetirizine Dihydrochloride [Xyzal] 5 mg PO HS 05/31/17 [History] Mirtazapine [Remeron Soluspan] 60 mg PO HS 05/31/17 [History] Potassium Chloride ER [K-Dur 10] 30 meq PO DAILY 04/01/19 [History] Docusate [Colace] 100 mg PO DAILY 30 Days #30 cap 04/07/19 [Rx] Calcitriol 1 mcg PO MOWEFR 06/07/19 [History] Calcium/Magnesium 250mg/300mg 1 tab PO DAILY 06/07/19 [History] Dronabinol [Marinol] 5 mg PO AC-BID 06/07/19 [History] Ergocalciferol [Vitamin D2 (DRISDOL)] 50,000 units PO QMONTH 06/07/19 [History] Ipratropium-Albuterol Nebulize [Duoneb 0.5 mg-3 mg/3 ml Soln] 3 ml INHALATION RT-QID PRN 06/07/19 [History] Levothyroxine Sodium [Synthroid] 88 mcg PO DAILY 06/07/19 [History] Megestrol Acetate 200 mg PO TID 06/07/19 [History] Methylcellulose (with Sugar) [Citrucel Powder] 2 gm PO DAILY 06/07/19 [History] Metolazone [Zaroxolyn] 2.5 mg PO Q48H 06/07/19 [History] cloNIDine 0.1 MG/24HR PATCH [Catapres-TTS] 1 patch TRANSDERM REYNA 06/07/19 [History] hydrOXYzine PAMOATE [Vistaril] 50 mg PO TID PRN 06/07/19 [History] Rivaroxaban [Xarelto] 10 mg PO DAILY 30 Days #30 tab 06/08/19 [Rx] Metoprolol Tartrate [Lopressor] 25 mg PO DAILY tab 06/10/19 [Rx] Pantoprazole [Protonix] 40 mg PO AC-BID tablet. 06/10/19 [Rx] Sennosides-Docusate Sodium [Senokot-S] 2 each PO HS tab 06/10/19 [Rx] Follow up Appointment(s)/Referral(s): Ale Eli MD [Primary Care Provider] - 1-2 days [facility] [place], [NON-STAFF] - As Needed Tavon Almaguer MD [STAFF PHYSICIAN] - 3 Weeks Activity/Diet/Wound Care/Special Instructions: Weight-bear as tolerated on your operative leg. Up with assistance, up with a walker. You may remove your dressing and shower after 48 hours. Keep incision covered, daily dressing changes. Pain medications per pain management team. DVT prophylaxis per internal medicine. Continue posterior hip precautions. Follow-up with Dr. Almaguer in the office in 2 weeks. Call the office with any questions or concerns, Patient to be DC'd to inpatient rehab Discharge Disposition: OTHER INSTITUTION NOT DEFINED
[2019-06-10 16:05] VITALS: PULSE 89; RESP 17; TEMP 97.7
[2019-06-10] MEDS ORDERED: ENOXAPARIN 30 MG/0.3 ML SYRINGE SQ SCH (21:00)
[2019-06-12] MEDS ORDERED: cloNIDine 0.1 MG/24HR PATCH TRANSDERM SCH (09:00)
== END 2019-06-10 17:25 | DRG 470 ==
LOC: EC 11:40 → 4SSUR 14:26
PROVIDERS: ADMIT Orthopaedic Surgery Sports Medicine; ATTEND Orthopaedic Surgery Sports Medicine
PROC: 0SRS01A Replacement of Left Hip Joint, Femoral Surface with Metal Synthetic Substitute, Uncemented, Open Approach (ICD-10-PCS; principal; 2019-06-08 08:00)
DX: S72.002A Fracture of unspecified part of neck of left femur, initial encounter for closed fracture (principal); N18.4 Chronic kidney disease, stage 4 (severe); D72.829 Elevated white blood cell count, unspecified; F32.9 Major depressive disorder, single episode, unspecified; F41.0 Panic disorder [episodic paroxysmal anxiety]; J45.909 Unspecified asthma, uncomplicated; K21.9 Gastro-esophageal reflux disease without esophagitis; G43.909 Migraine, unspecified, not intractable, without status migrainosus; G89.29 Other chronic pain; R00.0 Tachycardia, unspecified; R26.2 Difficulty in walking, not elsewhere classified; M47.812 Spondylosis without myelopathy or radiculopathy, cervical region; M19.90 Unspecified osteoarthritis, unspecified site; Z79.01 Long term (current) use of anticoagulants; Z79.890 Hormone replacement therapy; Z79.899 Other long term (current) drug therapy; Z79.52 Long term (current) use of systemic steroids; Z88.7 Allergy status to serum and vaccine; Z91.048 Other nonmedicinal substance allergy status; Z98.1 Arthrodesis status; Z87.11 Personal history of peptic ulcer disease; Z86.73 Personal history of transient ischemic attack (TIA), and cerebral infarction without residual deficits; Z86.718 Personal history of other venous thrombosis and embolism; Z90.3 Acquired absence of stomach [part of]; Z90.49 Acquired absence of other specified parts of digestive tract; Z80.41 Family history of malignant neoplasm of ovary; Z80.51 Family history of malignant neoplasm of kidney; Z82.49 Family history of ischemic heart disease and other diseases of the circulatory system; Z80.52 Family history of malignant neoplasm of bladder; W01.0XXA Fall on same level from slipping, tripping and stumbling without subsequent striking against object, initial encounter; Y92.009 Unspecified place in unspecified non-institutional (private) residence as the place of occurrence of the external cause
CPT/HCPCS: 36415; 71045; 73501; 73502; 80053; 81003; 82550; 84443; 85025; 85610; 85730; 88305; 88311; 93005; 96361; 96374; 96376; 99285

== ENCOUNTER 2019-10-05 16:45 | Inpatient (IN) | payer MEDICARE, OTHER ==
[2019-10-05] MEDS ORDERED: SODIUM CHLORIDE 0.9% 1,000 ML IV STA ×2 (17:21→17:22)
[2019-10-05 17:58] LABS: Anisocytosis Slight; Basophils # (A) 0.1 k/uL (0-0.2); Basophils % (A) 1 %; Eosinophils # (A) 0.3 k/uL (0-0.7); Eosinophils % (A) 3 %; HCT 39.7 % (34.0-46.0); HGB 11.9 gm/dL (11.4-16.0); Hypochromasia Moderate; Lymphocytes # (A) 1.6 k/uL (1.0-4.8); Lymphocytes % (A) 16 %; MCH 28.4 pg (25.0-35.0); MCV 94.6 fL (80.0-100.0); Monocytes # (A) 0.4 k/uL (0-1.0); Monocytes % (A) 4 %; Neutrophils # (A) 7.7 k/uL (1.3-7.7); Neutrophils % (A) 76 %; Platelet Count 437 k/uL (150-450); RBC 4.19 m/uL (3.80-5.40); RDW 18.5 % (11.5-15.5); WBC 10.2 k/uL (3.8-10.6)
--- NOTE | 2019-10-05 18:05 | ED ---
General Adult HPI - General Chief complaint: Headache Stated complaint: Head/neck/ear pain Time Seen by Provider: 10/05/19 16:55 Source: patient, RN notes reviewed, old records reviewed Mode of arrival: ambulatory Limitations: no limitations - History of Present Illness Initial comments: Jass is a 74-year-old female presents emergency Department today with complaints of headache over her neck and left side of her ear. She reported having this chronic pain since a fall in May weeks ago in which she broke her hip. She states that she has no recent fevers or chills, she does complain of sinus congestion. She states that she has been on chronic pain patch and is trying to wean off of them by her primary care doctor. Patient reports that she was told that her ex-neck x-ray this week was normal and schedule have a CAT scan done next week. 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 She has no family at home, follows with [facility]. She states she has no significant support system. - Related Data Home Medications Medication Instructions Recorded Confirmed DULoxetine HCL [Cymbalta] 60 mg PO DAILY 09/17/13 06/07/19 fentaNYL 100MCG/HR PATCH 1 patch TRANSDERM Q72H 04/10/15 06/07/19 [Duragesic 100MCG/HR] Cyanocobalamin [Vitamin B-12 1,000 mcg SQ [id number] 11/06/15 06/07/19 Injection] Ferrous Sulfate [Iron (65 MG 650 mg PO DAILY 11/06/15 06/07/19 Elemental)] Fluticasone Nasal [place] [Flonase 2 spr EA NOSTRIL DAILY 11/06/15 06/07/19 Nasal [place]] Furosemide [Lasix] 20 mg PO DAILY 11/06/15 06/07/19 SUMAtriptan SUCCINATE [Imitrex] 50 mg PO DAILY PRN 11/06/15 06/07/19 buPROPion HCL [Wellbutrin XL] 300 mg PO DAILY 11/06/15 06/07/19 busPIRone HCL 30 mg PO HS 11/06/15 06/07/19 Albuterol Inhaler (Mhu) [Ventolin 2 puff INHALATION RT-Q4H PRN 05/31/17 06/07/19 Hfa Inhaler (Mhu)] Levocetirizine Dihydrochloride 5 mg PO HS 05/31/17 06/07/19 [Xyzal] Mirtazapine [Remeron Soluspan] 60 mg PO HS 05/31/17 06/07/19 Potassium Chloride ER [K-Dur 10] 30 meq PO DAILY 04/01/19 06/07/19 Calcitriol 1 mcg PO MOWEFR 06/07/19 06/07/19 Calcium/Magnesium 250mg/300mg 1 tab PO DAILY 06/07/19 06/07/19 Dronabinol [Marinol] 5 mg PO AC-BID 06/07/19 06/07/19 Ergocalciferol [Vitamin D2 50,000 units PO QMONTH 06/07/19 06/07/19 (DRISDOL)] Ipratropium-Albuterol Nebulize 3 ml INHALATION RT-QID PRN 06/07/19 06/07/19 [Duoneb 0.5 mg-3 mg/3 ml Soln] Levothyroxine Sodium [Synthroid] 88 mcg PO DAILY 06/07/19 06/07/19 Megestrol Acetate 200 mg PO TID 06/07/19 06/07/19 Methylcellulose (with Sugar) 2 gm PO DAILY 06/07/19 06/07/19 [Citrucel Powder] Metolazone [Zaroxolyn] 2.5 mg PO Q48H 06/07/19 06/07/19 cloNIDine 0.1 MG/24HR PATCH 1 patch TRANSDERM REYNA 06/07/19 06/07/19 [Catapres-TTS] hydrOXYzine PAMOATE [Vistaril] 50 mg PO TID PRN 06/07/19 06/07/19 Previous Rx's Medication Instructions Recorded Omeprazole [PriLOSEC] 20 mg PO AC-BRKFST #30 capsule. 03/17/14 Folic Acid 1 mg PO DAILY@1200 #1 tablet 04/18/14 Thiamine [Vitamin B-1] 100 mg PO DAILY@1200 #1 tablet 04/18/14 Docusate [Colace] 100 mg PO DAILY 30 Days #30 cap 04/07/19 Rivaroxaban [Xarelto] 10 mg PO DAILY 30 Days #30 tab 06/08/19 Cyclobenzaprine [Flexeril] 10 mg PO TID PRN tab 06/10/19 Gabapentin [Neurontin] 100 mg PO HS cap 06/10/19 HYDROcodone/APAP 5-325MG [[place] 1 - 2 each PO Q6HR PRN tab 06/10/19 5-325] Metoprolol Tartrate [Lopressor] 25 mg PO DAILY tab 06/10/19 Pantoprazole [Protonix] 40 mg PO AC-BID tablet. 06/10/19 Sennosides-Docusate Sodium 2 each PO HS tab 06/10/19 [Senokot-S] Allergies Allergy/AdvReac Type Severity Reaction Status Date / Time poliomyelitis vaccine, live Allergy Unknown Verified 10/05/19 16:49 oral Childhood [poliomyelitis vaccine,live] DUST Allergy Itching Uncoded 10/05/19 16:49 MOLDS Allergy Itching Uncoded 10/05/19 16:49 Review of Systems ROS Statement: Those systems with pertinent positive or pertinent negative responses have been documented in the HPI. ROS Other: All systems not noted in ROS Statement are negative. Past Medical History Past Medical History: Asthma, Deep Vein Thrombosis (DVT), GERD/Reflux Additional Past Medical History / Comment(s): OA IN NECK,BACK AND BILATERAL AR MS.stomach ulcers, edema,low calcium; migraine headaches, pancreatitis,constipation,tia,spinal stenosis(had sx ) History of Any Multi-Drug Resistant Organisms: None Reported Past Surgical History: Back Surgery, Bowel Resection Additional Past Surgical History / Comment(s): LOWER BACK SURGERY lamenectomy/discetomy then had a revison of that sx. 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 FATHER HAD TB WHEN HE WAS A CHILD .FATHER AT AGE 87. Mother Family Medical History: Cancer Additional Family Medical History / Comment(s): MOTHER AT AGE 58 OF OVARIAN CANCER. General Exam - General Exam Comments Initial Comments: 74 -year-old female. Limitations: no limitations General appearance: alert, in no apparent distress Head exam: Present: atraumatic, normocephalic, normal inspection, other Eye exam: Present: normal appearance, PERRL, EOMI. Absent: scleral icterus, conjunctival injection, periorbital swelling ENT exam: Present: normal exam, mucous membranes dry, mucous membranes moist, TM's normal bilaterally (Normal TM bilaterally, no drainage. No mastoid tenderness bilaterally. ), other. Absent: normal oropharynx Neck exam: Present: normal inspection. Absent: tenderness, meningismus, lymphadenopathy Respiratory exam: Present: normal lung sounds bilaterally. Absent: respiratory distress, wheezes, rales, rhonchi, stridor Cardiovascular Exam: Present: regular rate, normal rhythm, normal heart sounds. Absent: systolic murmur, diastolic murmur, rubs, gallop, clicks GI/Abdominal exam: Present: soft, normal bowel sounds. Absent: distended, tenderness, guarding, rebound, rigid Extremities exam: Present: normal inspection, full ROM, normal capillary refill. Absent: tenderness, pedal edema, joint swelling, calf tenderness Back exam: Present: normal inspection Neurological exam: Present: alert, oriented X3, CN II-XII intact Psychiatric exam: Present: normal affect, normal mood Skin exam: Present: warm, dry, intact, normal color Course Vital Signs 10/05/19 10/05/19 16:46 17:40 Temperature 98.0 F Pulse Rate 124 H 113 H Respiratory 20 18 Rate Blood Pressure 136/83 128/76 O2 Sat by Pulse 96 99 Oximetry EKG Findings - EKG Comments: EKG Findings:: EKG performed shows sinus tachycardia right atrial pressure. Borderline EKG. Ventricular rate of 116 bpm. Verbal is 126 no seconds. Frustration is a 66 ms. QT QTc is 324/450 ms. Medical Decision Making - Medical Decision Making Patient is a 74-year-old female complains of a throbbing headache, as well as some left ear discomfort and sinus congestion. She reports she's been having head and neck pain since a fall when she broke her hip in May. Checked emergency department appearing dehydrated, with dry oropharynx Patient was tachycardic. Her complaints of headache and neck pain computed tomography scan of the brain and C-spine were ordered. There is evidence of degenerative changes in the cervical spine but no acute intracranial abnormalities noted. Patient continued be somewhat tachycardic had chest x-ray is completed and shows evidence of a developing right upper lobe pneumonia. She has reported some occasional cough and upper respiratory congestion. The no recorded fevers at home. Labs are reviewed showing elevated kidney function which seems to chronic. At this time Patient will be treated for the concern for developing pneumonia with Rocephin and azithromycin. I discussed the case with Dr. Berger and Discussed with Dr. Desir. - Lab Data Result diagrams: 10/05/19 17:45 10/05/19 17:45 Lab Results 10/05/19 10/05/19 10/05/19 Range/Units 17:45 17:45 17:45 WBC 10.2 (3.8-10.6) k/uL RBC 4.19 (3.80-5.40) m/uL Hgb 11.9 (11.4-16.0) gm/dL Hct 39.7 (34.0-46.0) % MCV 94.6 (80.0-100.0) fL MCH 28.4 (25.0-35.0) pg MCHC 30.0 L (31.0-37.0) g/dL RDW 18.5 H (11.5-15.5) % Plt Count 437 (150-450) k/uL Neutrophils % 76 % Lymphocytes % 16 % Monocytes % 4 % Eosinophils % 3 % Basophils % 1 % Neutrophils # 7.7 (1.3-7.7) k/uL Lymphocytes # 1.6 (1.0-4.8) k/uL Monocytes # 0.4 (0-1.0) k/uL Eosinophils # 0.3 (0-0.7) k/uL Basophils # 0.1 (0-0.2) k/uL Hypochromasia Moderate Anisocytosis Slight PT 9.4 (9.0-12.0) sec INR 0.9 (<1.2) APTT 24.0 (22.0-30.0) sec Sodium 140 (137-145) mmol/L Potassium 4.6 (3.5-5.1) mmol/L Chloride 107 (98-107) mmol/L Carbon Dioxide 22 (22-30) mmol/L Anion Gap 11 mmol/L BUN 47 H (7-17) mg/dL Creatinine 1.89 H (0.52-1.04) mg/dL Est GFR (CKD-EPI)AfAm 30 (>60 ml/min/1.73 sqM) Est GFR (CKD-EPI)NonAf 26 (>60 ml/min/1.73 sqM) Glucose 165 H (74-99) mg/dL Calcium 9.2 (8.4-10.2) mg/dL Magnesium 1.9 (1.6-2.3) mg/dL Total Bilirubin 0.2 (0.2-1.3) mg/dL AST 39 H (14-36) U/L ALT 20 (4-34) U/L Alkaline Phosphatase 189 H (38-126) U/L Total Protein 6.0 L (6.3-8.2) g/dL Albumin 3.4 L (3.5-5.0) g/dL - Radiology Data Radiology results: report reviewed Chest x-ray shows chronic emphysematous changes with new right upper lobe infiltrate. Correlate clinically. CT of the brain is negative for any acute process. Disposition Clinical Impression: Headache, Pneumonia, Chronic pain, Dehydration Disposition: ADMITTED IP TO THIS HOSP Condition: Stable Is patient prescribed a controlled substance at d/c from ED?: No Referrals: Ale Eli MD [Primary Care Provider] - 1-2 days Time of Disposition: 18:47
[2019-10-05 18:06] LABS: Albumin 3.4 g/dL (3.5-5.0); Calcium 9.2 mg/dL (8.4-10.2); Magnesium 1.9 mg/dL (1.6-2.3); Potassium 4.6 mmol/L (3.5-5.1); Total Bilirubin 0.2 mg/dL (0.2-1.3)
[2019-10-05 18:14] LABS: INR 0.9 (<1.2); Prothrombin Time 9.4 sec (9.0-12.0)
--- NOTE | 2019-10-05 18:20 | CT ---
EXAMINATION TYPE: CT brain cspine wo con DATE OF EXAM: 10/05/2019 COMPARISON: CT brain September 29, 2014. HISTORY: Fall 4 months ago with injury. Head, neck and ear pain today CT DLP: 1167 mGycm. Automated Exposure Control for Dose Reduction was Utilized. TECHNIQUE: CT scan of the head and cervical spine are performed without contrast. FINDINGS: There is no acute intracranial hemorrhage or midline shift identified. Mild ventricular a nd sulcal prominence greatest over bilateral frontal lobes is redemonstrated. Gastelum-white matter diff erentiation fairly well maintained. The calvarium is intact. The globes are intact and the visualized sinuses are clear. Cervical spine is visualized in its entirety from C1 through upper thoracic levels and demonstrates s light grade 1 anterolisthesis C3 on C4, C4 on C5, and C5 on C6 without evidence of acute fracture or dislocation. Prevertebral soft tissue appears within normal limits. The C1-C2 articulation is withi n normal limits on the coronal images. Vertebral body height and disc space heights fairly well main tained. There is levoconvex scoliotic curvature centered upper thoracic spine on coronal images. Spin al canal grossly preserved. Review of axial images show multilevel uncovertebral facet degenerative c hanges contributing to multilevel bilateral neural foraminal narrowing. Lung apices show no pneumotho rax. Small or atrophic thyroid noted. IMPRESSION: 1. There is no acute fracture or dislocation evident in the cervical spine. 2. No acute intracranial hemorrhage or midline shift is seen.
--- NOTE | 2019-10-05 18:21 | XR ---
EXAMINATION TYPE: XR chest 1V portable DATE OF EXAM: 10/05/2019 COMPARISON: Chest x-ray June 07, 2019. HISTORY: History of asthma with chest pain. TECHNIQUE: Single frontal view of the chest is obtained. FINDINGS: There is background chronic emphysematous change with new right upper lobe airspace opacit y silhouetting the fissure. No mediastinal shift. No pleural effusion or pneumothorax. Left lung is clear. The cardiac silhouette size remains within normal limits. Bilateral nipple shadows noted. The osseous structures remain demineralized.. IMPRESSION: Chronic emphysematous change with probable new right upper lobe acute infiltrate. Correl ate clinically.
[2019-10-05] MEDS ORDERED: ACETAMINOPHEN TAB 500 MG TAB PO STA (18:33)
[2019-10-05] MEDS ORDERED: METOCLOPRAMIDE 5 MG/ML 2 ML VIAL IVP STA (18:33)
[2019-10-05] MEDS ORDERED: diphenhydrAMINE 50 MG/ML 1 ML VIAL IVP STA (18:33)
[2019-10-05] MEDS ORDERED: AZITHROMYCIN 500 MG in SODIUM CHLORIDE 0.9% 250 ML IVPB STA (18:48)
[2019-10-05] MEDS ORDERED: PNEUMONIA PROTOCOL UTILIZED 1 EACH MISC PO PRN (18:48)
[2019-10-05] MEDS ORDERED: hydrOXYzine HCL 25 MG TAB PO PRN (22:08)
[2019-10-05] MEDS ORDERED: ERGOCALCIFEROL 50,000 UNIT CAP PO SCH (22:15)
[2019-10-05] MEDS: busPIRone HCl 10 MG TAB PO SCH (22:39)
[2019-10-05] MEDS: HYDROcodone/APAP 5-325MG 1 EACH TAB PO PRN (22:39)
[2019-10-05] MEDS ORDERED: MIRTAZAPINE 15 MG TAB PO STA (22:50)
[2019-10-06] MEDS: LEVOTHYROXINE 88 MCG TAB PO SCH (05:41)
[2019-10-06] MEDS: HYDROcodone/APAP 5-325MG 1 EACH TAB PO PRN ×3 (06:29→19:55)
[2019-10-06 07:20] LABS: Anisocytosis Slight; Basophils # (A) 0.1 k/uL (0-0.2); Basophils % (A) 1 %; Eosinophils # (A) 0.3 k/uL (0-0.7); Eosinophils % (A) 4 %; HCT 38.4 % (34.0-46.0); HGB 11.5 gm/dL (11.4-16.0); Hypochromasia Marked; Lymphocytes # (A) 1.6 k/uL (1.0-4.8); Lymphocytes % (A) 18 %; MCH 29.4 pg (25.0-35.0); MCV 97.9 fL (80.0-100.0); Macrocytosis Slight; Mean Platelet Volume 7.1; Monocytes # (A) 0.4 k/uL (0-1.0); Monocytes % (A) 4 %; Neutrophils # (A) 6.5 k/uL (1.3-7.7); Neutrophils % (A) 72 %; Platelet Count 415 k/uL (150-450); RBC 3.93 m/uL (3.80-5.40)
[2019-10-06 07:27] LABS: Albumin 2.9 g/dL (3.5-5.0); Calcium 8.7 mg/dL (8.4-10.2); Total Bilirubin 0.6 mg/dL (0.2-1.3); Total Protein 5.5 g/dL (6.3-8.2)
[2019-10-06] MEDS: PANTOPRAZOLE 40 MG TABLET PO SCH (08:21)
[2019-10-06] MEDS: busPIRone HCl 10 MG TAB PO SCH ×2 (08:21→19:54)
[2019-10-06] MEDS: buPROPion XL 300 MG TAB.ER.24H PO SCH (08:21)
[2019-10-06] MEDS: POTASSIUM CHLORIDE ER 10 MEQ TAB.ER.PRT PO SCH (08:21)
[2019-10-06] MEDS: FUROSEMIDE 20 MG TAB PO SCH (08:22)
[2019-10-06] MEDS: FERROUS SULFATE 325 MG TAB PO SCH (08:22)
[2019-10-06] MEDS: DULoxetine HCL 60 MG CAPSULE.DR PO SCH (08:22)
[2019-10-06] MEDS: DRONABINOL 2.5 MG CAP PO SCH ×4 (08:34→22:14)
[2019-10-06] MEDS: METOLAZONE 2.5 MG TAB PO SCH (08:35)
[2019-10-06] MEDS: CHOLESTYRAMINE (WITH SUGAR) 4 GM PACKET PO SCH ×2 (08:35→21:10)
--- NOTE | 2019-10-06 08:39 | XR ---
EXAMINATION TYPE: XR chest 2V DATE OF EXAM: 10/06/2019 COMPARISON: Prior chest x-ray 10/05/2019 HISTORY: Pneumonia TECHNIQUE: Frontal and lateral views of the chest are obtained. FINDINGS: Findings are similar to prior exam. IMPRESSION: Correlate for right upper lobe pneumonia follow-up to resolution to exclude underlying m ass.
[2019-10-06] MEDS ORDERED: CALCIUM PO SCH (09:00)
[2019-10-06] MEDS ORDERED: MAGNESIUM PO SCH (09:00)
[2019-10-06] MEDS: SUMAtriptan SUCCINATE 50 MG TAB PO PRN (09:31)
[2019-10-06] MEDS: FOLIC ACID 1 MG TAB PO SCH (12:37)
[2019-10-06] MEDS: THIAMINE 100 MG TAB PO SCH (12:37)
--- NOTE | 2019-10-06 15:27 | CONS ---
CONSULTATION PULMONARY/CRITICAL CARE CONSULTATION: DATE OF SERVICE: 10/06/2019. REASON FOR CONSULTATION: Right upper lobe pneumonia and asthma exacerbation. This is a 74-year-old female who presented to the emergency room yesterday at 1645 hours. She apparently came in with complaints of headache, neck and left side of her ear hurting her. She apparently has been having pain since she had a fall in May. She denies any recent fever or chills. She does complain of sinus congestion. She is chronically short of breath. She does have a history of asthma. She is a lifelong nonsmoker. Her chest x-ray appears to show a right upper lobe infiltrate. She really denies any fever or chills. There is no nausea, vomiting or diarrhea. No abdominal pain. She denies all genitourinary complaints. She actually looks pretty well. She is not on any supplemental oxygen. MEDICATIONS: Her home medications are reviewed. She is on Cymbalta, Duragesic patch, vitamin B12, iron, Flonase nasal spray, Lasix, Imitrex, Wellbutrin XL, BuSpar, albuterol inhaler, Xyzal tablets, Remeron, potassium chloride, calcitriol, magnesium, Marinol, vitamin D2, updrafts with DuoNeb as needed, levothyroxine, Megace, Citrucel powder, Zaroxolyn, clonidine and Vistaril. ALLERGIES: Reviewed. She is ALLERGIC to POLIO VACCINE, DUST AND MOLDS. MEDICAL HISTORY: Her medical history positive for asthma, DVT, GERD, back and neck pain, arm pain, stomach ulcers, low calcium levels, migraine cephalgia, pancreatitis, chronic constipation, TIA and spinal stenosis. SURGICAL HISTORY: Surgical history includes low back surgery with laminectomy, discectomy, gastrectomy, nasal surgery and both colonoscopy and EGD. SOCIAL HISTORY: Significant in that she is a lifelong nonsmoker. Denies any alcohol or illicit drug use. FAMILY HISTORY: Positive for father with CAD. Also her father had bladder and kidney cancer and TB when he was a child. Mother of ovarian carcinoma at a relatively young age of 58. REVIEW OF SYSTEMS: CONSTITUTIONAL: Negative. NEUROLOGIC: Headache, backache. HEENT: Sinus congestion. CARDIOVASCULAR: Negative. PULMONARY: Shortness of breath, cough, some phlegm production. GI: Negative. : Negative. RHEUMATOLOGIC: Negative. IMMUNOLOGIC: Negative. ENDOCRINOLOGIC: Negative. PHYSICAL EXAMINATION: VITAL SIGNS: Current vital signs are reviewed. Temperature is 98.2, heart rate 74, respiratory rate 17, blood pressure 158/87, mean 110, room-air saturation 95%. GENERAL APPEARANCE: Appears in no acute distress. HEENT: HEENT examination is grossly unremarkable. NECK: Supple. Full range of motion. CARDIOVASCULAR: Cardiovascular examination reveals regular rhythm and rate. S1, S2 normal. LUNGS: Lungs reveal some expiratory wheezes. A few scattered rhonchi. Breath sounds equal bilaterally. Exam is not real impressive. ABDOMEN: Soft. Bowel sounds are heard. EXTREMITIES: Intact. No cyanosis, clubbing or edema. SKIN: Without rash. NEUROLOGIC: Neurologic examination is nonfocal. LABS: Reviewed. White count 9, hemoglobin 11.5, hematocrit 38.4, platelet count 415,000. PT, INR, PTT normal. Sodium and potassium normal. Chloride 111. CO2 23. Anion gap is 6. BUN and creatinine were 40 and 1.53. Albumin is 2.9. Microbiology is negative or pending. Chest x-ray done today shows right upper lobe pneumonia. The previous chest x-ray from yesterday shows the same findings. MEDICATIONS: Medications are reviewed. She is on albuterol updrafts as needed, azithromycin and ceftriaxone. Other medications are her chronic medications. ASSESSMENT: 1. Right upper lobe pneumonia, community-acquired. 2. History of chronic bronchial asthma, reasonably stable at this time. 3. Recent fall with hip fracture. 4. History of chronic kidney disease. 5. History of deep venous thrombosis. 6. History of gastroesophageal reflux disease. 7. History of degenerative joint disease. 8. History of migraine cephalgia. 9. Prior history of pancreatitis. 10.History of constipation. 11.Transient ischemic attack. 12.History of spinal stenosis. 13.Multiple other medical problems and comorbidities, including but not limited to anxiety/depression/panic disorder. PLAN: The patient is on appropriate medications. Additional recommendations and suggestions are forthcoming. Her asthma is not particularly active at this time. Will continue to follow. She is on appropriate antibiotics. She does have an inhaler or a nebulizer machine if she needs it. MMODL / IJN: [id number] /
[2019-10-06 16:30] VITALS: BMI 15.3
[2019-10-06] MEDS: ALBUTEROL NEBULIZED 2.5 MG/3 ML INHALATION PRN (16:32)
--- NOTE | 2019-10-06 18:51 | P.HPIM ---
History of Present Illness H&P Date: 10/06/19 Louise dennis is a 74-year-old female who presented to [facility] emergency room with a chief complaint of headache and neck pain she was evaluated in emergency room, computed tomography scan of the brain and cervical spine did not reveal any significant abnormality, chest x-ray was positive for right upper lobe infiltrate, she was started on IV antibiotics and was admitted to medical floor, pulmonary consultation was requested. Patient denies any fever or chills she has occasional cough, she has shortness of breath, but this is a long-term complaint for her that is not changed from her baseline. Patient stated that she has history of asthma. She denies ever smoking. She st ated that she has been losing weight recently. 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 PT IS ABLE TO DRIVE A CAR. PT HAS A BEST FRIEND AND INTEGRATION DIRECTOR LLOYD MCGUIRE. Smoking Status: Never smoker Past Alcohol Use History: None Reported Past Drug Use History: None Reported - Past Family History Father Family Medical History: Cancer, Coronary Artery Disease (CAD) Additional Family Medical History / Comment(s): FATHER HAD BLADDER AND KIDNEY CANCER. FATHER HAD TB WHEN HE WAS A CHILD .FATHER AT AGE 87. Mother Family Medical History: Cancer Additional Family Medical History / Comment(s): MOTHER AT AGE 58 OF OVARIAN CANCER. Medications and Allergies Home Medications Medication Instructions Recorded Confirmed Type DULoxetine HCL [Cymbalta] 60 mg PO DAILY 05/31/14 06/17/20 History Folic Acid 1 mg PO DAILY@1200 #1 tablet 04/18/14 10/05/19 Rx Thiamine [Vitamin B-1] 100 mg PO DAILY@1200 #1 tablet 04/18/14 10/05/19 Rx fentaNYL 100MCG/HR PATCH 1 patch TRANSDERM Q72H 04/10/15 10/05/19 History [Duragesic 100MCG/HR] Cyanocobalamin [Vitamin B-12 1,000 mcg SQ [id number] 11/06/15 10/05/19 History Injection] Ferrous Sulfate [Iron (65 MG 650 mg PO DAILY 11/06/15 10/05/19 History Elemental)] Furosemide [Lasix] 20 mg PO DAILY 11/06/15 10/05/19 History SUMAtriptan SUCCINATE [Imitrex] 50 mg PO DAILY PRN 11/06/15 10/05/19 History buPROPion HCL [Wellbutrin XL] 300 mg PO DAILY 11/06/15 10/05/19 History busPIRone HCL 30 mg PO BID 11/06/15 10/05/19 History Levocetirizine Dihydrochloride 5 mg PO HS 05/31/17 10/05/19 History [Xyzal] Mirtazapine [Remeron Soluspan] 60 mg PO HS 05/31/17 10/05/19 History Potassium Chloride ER [K-Dur 10] 30 meq PO DAILY 04/01/19 10/05/19 History Calcitriol 1 mcg PO MOWEFR 06/07/19 10/05/19 History Calcium/Magnesium 250mg/300mg 1 tab PO DAILY 06/07/19 10/05/19 History Dronabinol [Marinol] 5 mg PO QID 06/07/19 10/05/19 History Ergocalciferol [Vitamin D2 50,000 units PO QMONTH 06/07/19 10/05/19 History (DRISDOL)] Levothyroxine Sodium [Synthroid] 88 mcg PO DAILY 06/07/19 10/05/19 History Metolazone [Zaroxolyn] 2.5 mg PO Q48H 06/07/19 10/05/19 History hydrOXYzine PAMOATE [Vistaril] 50 mg PO TID PRN 06/07/19 10/05/19 History Albuterol Inhaler [Ventolin Hfa 1 puff INHALATION RT-Q6H PRN 10/05/19 10/05/19 History Inhaler] Cholestyramine (with Sugar) 4 gm PO BID 10/05/19 10/05/19 History [Cholestyramine Packet] HYDROcodone/APAP 5-325MG [[place] 1 - 2 tab PO TID PRN 10/05/19 10/05/19 History 5-325] Omeprazole [PriLOSEC] 20 mg PO BID 10/05/19 10/05/19 History Allergies Allergy/AdvReac Type Severity Reaction Status Date / Time poliomyelitis vaccine, live Allergy Unknown Verified 10/05/19 19:14 oral Childhood [poliomyelitis vaccine,live] DUST Allergy Itching Uncoded 10/05/19 16:49 MOLDS Allergy Itching Uncoded 10/05/19 16:49 Physical Exam Vitals: Vital Signs Temp Pulse Pulse Resp BP BP Pulse Ox 10/06/19 07:00 98.2 F 74 17 158/87 95 10/06/19 03:30 98.1 F 91 17 160/97 98 10/05/19 21:36 98.3 F 102 H 18 123/75 100 10/05/19 20:38 97.9 F 104 H 18 144/77 98 10/05/19 19:00 108 H 18 143/81 100 10/05/19 17:40 113 H 18 128/76 99 10/05/19 16:46 98.0 F 124 H 20 136/83 96 Intake and Output 10/05/19 10/06/19 10/06/19 22:59 06:59 14:59 Other: # Voids 2 Weight 38.102 kg In general patient is alert and oriented 3 in no apparent distress HEENT head normocephalic and atraumatic Neck is supple no JVD no goiter no lymphadenopathy no meningeal signs Chest exam reveals a few scattered rhonchi bilaterally no wheezing Cardiac exam reveals regular heart sounds S1 and S2 no gallops no murmurs Abdomen is soft nontender no organomegaly with normal bowel sounds Extremity exam reveals no edema no cyanosis or clubbing Neurological examination reveals no gross focal deficits Results CBC & Chem 7: 10/06/19 06:10 10/06/19 06:10 Labs: Abnormal Lab Results - Last 24 Hours (Table) 10/05/19 10/05/19 10/06/19 Range/Units 17:45 17:45 06:10 MCHC 30.0 L 30.0 L (31.0-37.0) g/dL RDW 18.5 H 18.0 H (11.5-15.5) % Chloride (98-107) mmol/L BUN 47 H (7-17) mg/dL Creatinine 1.89 H (0.52-1.04) mg/dL Glucose 165 H (74-99) mg/dL AST 39 H (14-36) U/L Alkaline Phosphatase 189 H (38-126) U/L Total Protein 6.0 L (6.3-8.2) g/dL Albumin 3.4 L (3.5-5.0) g/dL 10/06/19 Range/Units 06:10 MCHC (31.0-37.0) g/dL RDW (11.5-15.5) % Chloride 111 H (98-107) mmol/L BUN 40 H (7-17) mg/dL Creatinine 1.53 H (0.52-1.04) mg/dL Glucose (74-99) mg/dL AST 52 H (14-36) U/L Alkaline Phosphatase 143 H (38-126) U/L Total Protein 5.5 L (6.3-8.2) g/dL Albumin 2.9 L (3.5-5.0) g/dL Thrombosis Risk Factor Assmnt - Choose All That Apply Any of the Below Risk Factors Present?: Yes Other Risk Factors: Yes Each Risk Factor Represents 2 Points: Age 61-74 years Thrombosis Risk Factor Assessment Total Risk Factor Score: 2 Thrombosis Risk Factor Assessment Level: Low Risk Assessment and Plan Plan: 1. Right upper lobe infiltrate suggestive of pneumonia 2. Headache and neck pain, cause is unclear could be related to degenerative disc disease, computed tomography scan of the head and cervical spine nonrevealing, neurology consultation is requested 3. Underlying history of chronic kidney disease 4. Recent history of fall with hip fracture requiring surgery 5. Remote history of TIA 6. History of migraine headache 7. History of weight loss maintained on Marinol 8. Chronic back pain maintained on fentanyl patch 9. Underlying history of depression with anxiety disorder 10. For DVT prophylaxis we will use subcu Lovenox At this time patient is admitted to medical floor she was started on IV antibiotic pulmonary consultation was requested regarding right upper lobe infiltrate Neurology consultation was requested in regard to headache and neck pain Will follow closely
[2019-10-06] MEDS: MIRTAZAPINE 15 MG TAB PO SCH (19:53)
[2019-10-06] MEDS: ENOXAPARIN 30 MG/0.3 ML SYRINGE SQ SCH (19:53)
[2019-10-06] MEDS: AZITHROMYCIN 500 MG TAB PO SCH (19:55)
[2019-10-06] MEDS: LORATADINE 10 MG TAB PO SCH (19:55)
--- NOTE | 2019-10-06 20:48 | P.CNNES ---
History of Present Illness Consult date: 10/06/19 Requesting physician: Palmer Desir Reason for Consult: Severe headache History of Present Illness: Patient is a 74-year-old female, who has history of migraines for over 10 years. She used to follow up with Dr. Hurst for her migraines. Her migraines would occur about once a week for which she takes Imitrex. The migraines used to involve biparietal frontal region. The migraine usually lasts 1-2 days. Patient states that in late May 2019 she suffered from a fall, when while vacuuming, the cord wrapped around her leg and she fell backwards in the closet, shattered hip. Patient states that no one found her for 3 days. She underwent hip arthroplasty. Since then she had developed more intense headaches, which are slightly different in location. It involves the lateral occipital temporal region and involves her ear. Her neck hurts. The headache/pain are persistent, constant. When she walks around, gets dizzy. She described it as sharp pain, cannot move head, sleeps on the couch. She has difficulty lifting her head off the pillow, has to hold her head because she is in so much pain. CT head showed no acute intracranial hemorrhage or midline shift. Visualized paranasal sinuses, external auditory canal are completely clear. CT of the cervical spine showed no acute fracture or dislocation evident in the cervical spine. There is grade 1 anterolisthesis C3 on C4, C4 on C5 and C5 on C6 without evidence of acute fracture or dislocation. Prevertebral soft tissue appears within normal limits. Chest x-ray showed chronic emphysematous change with probable new right upper lobe acute infiltrate. EKG shows sinus tachycardia. Right atrial enlargement. MRI of the cervical spine on 06/03/2014 showed no evidence of disc herniation, foraminal encroachment or canal stenosis. Patient's CBC, PT/PTT, electrolytes are normal. BUN 47 creatinine 1.89, which is improved to 41 and 1.53 respectively. AST mildly elevated 39, ALT normal 20. Case virus PCR negative. Patient states that she has no stomach because of surgery for gastric ulcer. Patient says that she does take Wellbutrin 300 mg daily for depression, fentanyl patch and [place]. Patient states that she tried Neurontin in the past but produces leg swelling. Patient states that she used to take Fioricet which would help significantly with her migraines. She took Fioricet from 1983 to 1987. Stopped taking it because she lost insurance. Review of Systems As mentioned above in detail in HPI. All other review of systems negative. Patient does have mild pneumonia. Denies any abdominal pain, nausea vomiting diarrhea. Denies double vision, loss of vision, hoarseness or throat dysphagia. Denies back or neck pain. 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 PT IS ABLE TO DRIVE A CAR. PT HAS A BEST FRIEND AND DIRECTOR PRISON LLOYD MCGUIRE. Smoking Status: Never smoker Past Alcohol Use History: None Reported Past Drug Use History: None Reported - Past Family History Father Family Medical History: Cancer, Coronary Artery Disease (CAD) Additional Family Medical History / Comment(s): FATHER HAD BLADDER AND KIDNEY CANCER. FATHER HAD TB WHEN HE WAS A CHILD .FATHER AT AGE 87. Mother Family Medical History: Cancer Additional Family Medical History / Comment(s): MOTHER AT AGE 58 OF OVARIAN CANCER. Medications and Allergies Home Medications Medication Instructions Recorded Confirmed Type DULoxetine HCL [Cymbalta] 60 mg PO DAILY 09/17/13 10/05/19 History Folic Acid 1 mg PO DAILY@1200 #1 tablet 04/18/14 10/05/19 Rx Thiamine [Vitamin B-1] 100 mg PO DAILY@1200 #1 tablet 04/18/14 10/05/19 Rx fentaNYL 100MCG/HR PATCH 1 patch TRANSDERM Q72H 04/10/15 10/05/19 History [Duragesic 100MCG/HR] Cyanocobalamin [Vitamin B-12 1,000 mcg SQ [id number] 11/06/15 10/05/19 History Injection] Ferrous Sulfate [Iron (65 MG 650 mg PO DAILY 11/06/15 10/05/19 History Elemental)] Furosemide [Lasix] 20 mg PO DAILY 11/06/15 10/05/19 History SUMAtriptan SUCCINATE [Imitrex] 50 mg PO DAILY PRN 11/06/15 10/05/19 History buPROPion HCL [Wellbutrin XL] 300 mg PO DAILY 11/06/15 10/05/19 History busPIRone HCL 30 mg PO BID 11/06/15 10/05/19 History Levocetirizine Dihydrochloride 5 mg PO HS 05/31/17 10/05/19 History [Xyzal] Mirtazapine [Remeron Soluspan] 60 mg PO HS 05/31/17 10/05/19 History Potassium Chloride ER [K-Dur 10] 30 meq PO DAILY 04/01/19 10/05/19 History Calcitriol 1 mcg PO MOWEFR 06/07/19 10/05/19 History Calcium/Magnesium 250mg/300mg 1 tab PO DAILY 06/07/19 10/05/19 History Dronabinol [Marinol] 5 mg PO QID 06/07/19 10/05/19 History Ergocalciferol [Vitamin D2 50,000 units PO QMONTH 06/07/19 10/05/19 History (DRISDOL)] Levothyroxine Sodium [Synthroid] 88 mcg PO DAILY 06/07/19 10/05/19 History Metolazone [Zaroxolyn] 2.5 mg PO Q48H 06/07/19 10/05/19 History hydrOXYzine PAMOATE [Vistaril] 50 mg PO TID PRN 06/07/19 10/05/19 History Albuterol Inhaler [Ventolin Hfa 1 puff INHALATION RT-Q6H PRN 10/05/19 10/05/19 History Inhaler] Cholestyramine (with Sugar) 4 gm PO BID 10/05/19 10/05/19 History [Cholestyramine Packet] HYDROcodone/APAP 5-325MG [[place] 1 - 2 tab PO TID PRN 10/05/19 10/05/19 History 5-325] Omeprazole [PriLOSEC] 20 mg PO BID 10/05/19 10/05/19 History Allergies Allergy/AdvReac Type Severity Reaction Status Date / Time poliomyelitis vaccine, live Allergy Unknown Verified 10/05/19 19:14 oral Childhood [poliomyelitis vaccine,live] DUST Allergy Itching Uncoded 10/05/19 16:49 MOLDS Allergy Itching Uncoded 10/05/19 16:49 Physical Examination - Vital Signs Vital Signs: Vital Signs Temp Pulse Pulse Resp BP BP Pulse Ox 10/06/19 16:45 90 10/06/19 16:37 90 10/06/19 15:00 98.2 F 114 H 18 145/81 95 10/06/19 07:00 98.2 F 74 17 158/87 95 10/06/19 03:30 98.1 F 91 17 160/97 98 10/05/19 21:36 98.3 F 102 H 18 123/75 100 10/05/19 20:38 97.9 F 104 H 18 144/77 98 10/05/19 19:00 108 H 18 143/81 100 Intake and Output 10/06/19 10/06/19 10/06/19 06:59 14:59 22:59 Intake Total 540 Balance 540 Intake: Oral 540 Other: Voiding Method Toilet Toilet # Voids 2 0 Weight 38.102 kg On examination patient is a elderly female in no distress. Patient is alert awake oriented to time place and person. Speech and language functions are normal. Attention and concentration fund of knowledge is adequate. On cranial examination, pupils are round and reactive to light. Visual calixto are full. Extraocular muscles are intact. Face is symmetric, tongue protrudes the midline. Palatal elevation and sensation normal. Hearing and shoulder shrug normal. On muscle strength testing patient has left pronation, but no drift. The muscle strength is normal in arms and legs reflexes are diminished and plantars are downgoing. Sensory touch is equal. No ataxia for qeqxoe-vy-soci testing. Tone and bulk of muscles normal. No obvious bruit, S1 and S2 audible. Peripheral pulses present. Abdomen soft nontender. Chest is clear. Results - Laboratory Findings CBC and BMP: 10/06/19 06:10 10/06/19 06:10 Abnormal Lab Findings: Abnormal Labs 10/05/19 10/05/19 10/06/19 17:45 17:45 06:10 MCHC 30.0 L 30.0 L RDW 18.5 H 18.0 H Chloride BUN 47 H Creatinine 1.89 H Glucose 165 H AST 39 H Alkaline Phosphatase 189 H Total Protein 6.0 L Albumin 3.4 L 10/06/19 06:10 MCHC RDW Chloride 111 H BUN 40 H Creatinine 1.53 H Glucose AST 52 H Alkaline Phosphatase 143 H Total Protein 5.5 L Albumin 2.9 L Assessment and Plan Assessment: * Probable bilateral occipital neuralgia. Symptoms started after patient suffered from a fall in May 2019, when she tripped on a cord, and fell backwards. * Long-standing history of migraine headaches. * Cervical spondylosis. Plan: * Fioricet as needed for migraines. * Patient has cervical spondylosis. Cannot take nonsteroidals because of gastric and renal concerns. * Flexeril 5 mg at bedtime to help with the neck spasms. * Occipital nerve block, as an inpatient or outpatient. * ESR and CRP to rule out temporal arteritis.
[2019-10-06] MEDS: BUTALB/APAP/CAFF 50-325-40MG TAB PO PRN (21:11)
[2019-10-06] MEDS: CYCLOBENZAPRINE 5 MG TAB PO PRN (21:11)
[2019-10-07] MEDS: LEVOTHYROXINE 88 MCG TAB PO SCH (05:14)
[2019-10-07] MEDS: BUTALB/APAP/CAFF 50-325-40MG TAB PO PRN ×5 (05:16→22:32)
[2019-10-07] MEDS: ENOXAPARIN 30 MG/0.3 ML SYRINGE SQ SCH (08:37)
[2019-10-07] MEDS: busPIRone HCl 10 MG TAB PO SCH ×2 (08:38→20:25)
[2019-10-07] MEDS: HYDROcodone/APAP 5-325MG 1 EACH TAB PO PRN ×3 (08:39→21:15)
[2019-10-07] MEDS: CHOLESTYRAMINE (WITH SUGAR) 4 GM PACKET PO SCH ×2 (08:41→20:26)
[2019-10-07] MEDS: DULoxetine HCL 60 MG CAPSULE.DR PO SCH (08:41)
[2019-10-07] MEDS: CALCITRIOL 0.25 MCG CAP PO SCH (08:41)
[2019-10-07] MEDS: PANTOPRAZOLE 40 MG TABLET PO SCH (08:42)
[2019-10-07] MEDS: buPROPion XL 300 MG TAB.ER.24H PO SCH (08:42)
[2019-10-07] MEDS: FERROUS SULFATE 325 MG TAB PO SCH (08:44)
[2019-10-07] MEDS: POTASSIUM CHLORIDE ER 10 MEQ TAB.ER.PRT PO SCH (08:45)
[2019-10-07] MEDS: FUROSEMIDE 20 MG TAB PO SCH (08:45)
[2019-10-07] MEDS: DRONABINOL 2.5 MG CAP PO SCH ×4 (08:47→21:15)
[2019-10-07] MEDS: CYCLOBENZAPRINE 5 MG TAB PO PRN ×2 (10:03→22:32)
[2019-10-07 10:13] LABS: Anisocytosis Slight; Basophils # (A) 0.1 k/uL (0-0.2); Basophils % (A) 1 %; Eosinophils # (A) 0.5 k/uL (0-0.7); Eosinophils % (A) 5 %; HCT 34.6 % (34.0-46.0); HGB 10.1 gm/dL (11.4-16.0); Hypochromasia Marked; Lymphocytes # (A) 1.9 k/uL (1.0-4.8); Lymphocytes % (A) 19 %; MCH 28.4 pg (25.0-35.0); MCHC 29.3 g/dL (31.0-37.0); MCV 97.1 fL (80.0-100.0); Macrocytosis Slight; Mean Platelet Volume 7.1; Monocytes # (A) 0.5 k/uL (0-1.0); Monocytes % (A) 5 %; Neutrophils # (A) 7.1 k/uL (1.3-7.7); Neutrophils % (A) 70 %; Platelet Count 361 k/uL (150-450); RBC 3.56 m/uL (3.80-5.40); RDW 18.1 % (11.5-15.5); WBC 10.1 k/uL (3.8-10.6)
[2019-10-07 10:23] LABS: Albumin 2.8 g/dL (3.5-5.0); Calcium 8.4 mg/dL (8.4-10.2); Potassium 4.9 mmol/L (3.5-5.1); Total Bilirubin 0.3 mg/dL (0.2-1.3); Total Protein 5.2 g/dL (6.3-8.2)
--- NOTE | 2019-10-07 11:39 | P.PN ---
Subjective Progress Note Date: 10/07/19 Principal diagnosis: Right upper lobe community-acquired pneumonia The patient is seen today 10/07/2019 in follow-up on the regular medical floor. She is currently awake and alert in no acute distress. Resting comfortably in bed. Still having some head and neck pain. Still some shortness of breath with exertion. Loose nonproductive cough. Blood cultures reveal no growth. White count 10.1. Hemoglobin 10.1. Sodium 136. Potassium 4.9. Creatinine 1.92. She is maintained on ceftriaxone and azithromycin along with bronchodilators. Objective - Vital Signs Vital signs: Vital Signs Temp 97.9 F 10/07/19 07:00 Pulse 75 10/07/19 08:36 Resp 16 10/07/19 07:00 BP 131/73 10/07/19 07:00 Pulse Ox 95 10/07/19 07:00 Intake & Output 10/06/19 10/07/19 10/07/19 18:59 06:59 18:59 Intake Total 540 Balance 540 Weight 38.102 kg Intake: Oral 540 Other: Voiding Method Toilet Toilet Toilet # Voids 0 3 - Exam GENERAL EXAM: Alert, active, very pleasant, frail cachectic 74-year-old female patient, on room air, comfortable in no apparent distress. HEAD: Normocephalic. EYES: Normal reaction of pupils, equal size. NOSE: Clear with pink turbinates. THROAT: No erythema or exudates. NECK: No masses, no JVD. CHEST: No chest wall deformity. LUNGS: Equal air entry with few scattered rhonchi in the right lung, diminished. CVS: S1 and S2 normal with no audible murmur, regular rhythm. ABDOMEN: No hepatosplenomegaly, normal bowel sounds, no guarding or rigidity. SPINE: No scoliosis or deformity SKIN: No rashes CENTRAL NERVOUS SYSTEM: No focal deficits, tone is normal in all 4 extremities. EXTREMITIES: There is no peripheral edema. No clubbing, no cyanosis. Peripheral pulses are intact. - Labs CBC & Chem 7: 10/07/19 08:55 10/07/19 08:55 Labs: Abnormal Lab Results - Last 24 Hours (Table) 10/07/19 10/07/19 Range/Units 08:55 08:55 RBC 3.56 L (3.80-5.40) m/uL Hgb 10.1 L (11.4-16.0) gm/dL MCHC 29.3 L (31.0-37.0) g/dL RDW 18.1 H (11.5-15.5) % Sodium 136 L (137-145) mmol/L BUN 54 H (7-17) mg/dL Creatinine 1.92 H (0.52-1.04) mg/dL Glucose 129 H (74-99) mg/dL AST 65 H (14-36) U/L Alkaline Phosphatase 138 H (38-126) U/L Total Protein 5.2 L (6.3-8.2) g/dL Albumin 2.8 L (3.5-5.0) g/dL Microbiology - Last 24 Hours (Table) 10/05/19 18:54 Blood Culture - Preliminary Blood No Growth after 24 hours Assessment and Plan Assessment: 1 Acute community-acquired right upper lobe pneumonia 2 History of chronic bronchial asthma currently stable 3 Recent fall with hip fracture 4 Chronic kidney disease 5 History of DVT 6 GERD 7 Degenerative joint disease 8 History of migraine cephalgia 9 History of pancreatitis 10 History of constipation 11 History of TIA 12 History of spinal stenosis 13 History of anxiety/depression/panic disorder 14 Protein calorie malnutrition 15 Poor overall functional performance based and the above-mentioned multiple comorbidities. Plan: The patient was seen and evaluated by Dr. Sanchez Continue the current pulmonary treatment plan Repeat chest x-ray in a.m. Increase her activity as tolerated We'll continue to follow and make further recommendations based on her clinical status I, the cosigning physician, performed a history & physical examination of the patient. Lungs sounds with scattered rhonchi in the right lung, diminished. Maintaining good O2 saturations in the 90s on room air. I discussed the assessment and plan of care with my nurse practitioner, Leyla Grace. I attest to the above note as dictated by her.
[2019-10-07] MEDS: THIAMINE 100 MG TAB PO SCH (12:08)
[2019-10-07] MEDS: FOLIC ACID 1 MG TAB PO SCH (12:08)
[2019-10-07] MEDS: ALBUTEROL NEBULIZED 2.5 MG/3 ML INHALATION PRN ×2 (12:13→19:38)
--- NOTE | 2019-10-07 12:57 | P.PN ---
Subjective Progress Note Date: 10/07/19 Patient states Fioricet and Flexeril helps with her migraine that involve the frontal parietal region. However she complains of significant posterior neck pain. Patient rates it 01/27. Objective - Vital Signs Vital signs: Vital Signs Temp 97.9 F 10/07/19 07:00 Pulse 96 10/07/19 12:27 Resp 16 10/07/19 07:00 BP 131/73 10/07/19 07:00 Pulse Ox 95 10/07/19 07:00 Intake & Output 10/06/19 10/07/19 10/07/19 18:59 06:59 18:59 Intake Total 540 Balance 540 Weight 38.102 kg Intake: Oral 540 Other: Voiding Method Toilet Toilet Toilet # Voids 0 3 - Exam Nonfocal - Labs CBC & Chem 7: 10/07/19 08:55 10/07/19 08:55 Labs: Abnormal Lab Results - Last 24 Hours (Table) 10/07/19 10/07/19 Range/Units 08:55 08:55 RBC 3.56 L (3.80-5.40) m/uL Hgb 10.1 L (11.4-16.0) gm/dL MCHC 29.3 L (31.0-37.0) g/dL RDW 18.1 H (11.5-15.5) % Sodium 136 L (137-145) mmol/L BUN 54 H (7-17) mg/dL Creatinine 1.92 H (0.52-1.04) mg/dL Glucose 129 H (74-99) mg/dL AST 65 H (14-36) U/L Alkaline Phosphatase 138 H (38-126) U/L Total Protein 5.2 L (6.3-8.2) g/dL Albumin 2.8 L (3.5-5.0) g/dL Microbiology - Last 24 Hours (Table) 10/05/19 18:54 Blood Culture - Preliminary Blood No Growth after 24 hours Assessment and Plan Assessment: * Probable bilateral occipital neuralgia. Symptoms started after patient suffered from a fall in May 2019, when she tripped on a cord, and fell backwards. * Long-standing history of migraine headaches. * Cervical spondylosis. Plan: * Suggest bilateral Occipital nerve block. Patient wishes to have it while inpatient. Consider anesthesia consult for occipital nerve block. * Fioricet as needed for migraines. * Patient has cervical spondylosis. Cannot take nonsteroidals because of gastric and renal concerns. * Flexeril 5 mg at bedtime to help with the neck spasms. * ESR 15 and CRP 8.2, both normal. No evidence of temporal arteritis.
--- NOTE | 2019-10-07 14:21 | CDI ---
Documentation Clarification Form Date: 10/07/2019 01:46:07 PM From: Zakiya Rivera RN, CCDS Admit Date: 10/05/2019 06:48:00 PM Patient Name: Louise Sutton Visit Number: [id number] Discharge Date: ATTENTION: The Clinical Documentation Specialists (CDI) and [facility] Coding Staff appreciate your assistance in clarifying documentation. Please respond to the clarification below the line at the bottom and electronically sign. The CDI & [facility] Coding staff will review the response and follow-up if needed. Please note: Queries are made part of the Legal Health Record. If you have any questions, please contact the author of this message via ITS. Dr. Palmer Desir Malnutrition has been documented in nutritional assessment and verification of diagnosis from the attending is requested. History/Risk Factors: Pneumonia, Failure to thrive, Stomach ulcers with 1/2 of stomach removed 1989, 1994, Clinical Indicators: 74-year-old female present with on 10/04 with complaints of headache. ED reports she appeared dehydrated with dry oropharynx and was tachycardic. 10/05 Vital signs @16:46: 136/83 124 20 98.0 10/05 Nutritional assessment: physical findings appearance: Emaciated, underweight 10/05 Labs: Total protein 6.4, Albumin 3.3, BUN 18, CR 1.12 Current BMI: 15.4 Insufficient energy intake: Yes Weight Loss: 6 lb loss x4 months although patient chronically underweight Loss of subcutaneous fat: yes Loss of muscle mass: yes. visible severe muscle mass wasting and subcutaneous fat loss Treatment: 10/05 Dietary Consult: Yes, malnutrition, severe protein-calorie in the context of chronic illness General/healthful diet Ensure Enlive, magic cup as trial Nutrition Education High protein/calorie foods Monitor supplement/snack intake, weight In your professional opinion, can you please clarify if these findings signify one of the following conditions? Mild Protein-Calorie Malnutrition Moderate Protein-Calorie Malnutrition Severe Protein-Calorie Malnutrition Other condition, please specify Unable to determine (Last Revision: October 2018) MTDD
--- NOTE | 2019-10-07 15:02 | P.PN ---
Subjective Progress Note Date: 10/07/19 Louise dennis is a 74-year-old female who presented to [facility] emergency room with a chief complaint of headache and neck pain she was evaluated in emergency room, computed tomography scan of the brain and cervical spine did not reveal any significant abnormality, chest x-ray was positive for right upper lobe infiltrate, she was started on IV antibiotics and was admitted to medical floor, pulmonary consultation was requested. Patient denies any fever or chills she has occasional cough, she has shortness of breath, but this is a long-term complaint for her that is not changed from her baseline. Patient stated that she has history of asthma. She denies ever smoking. She stated that she has been losing weight recently. On 10/07/2019 patient was seen and examined on the medical floor there is no fever or chills no dizziness no chest pain no shortness of breath she has occas ional cough no nausea or vomiting no abdominal pain no diarrhea no burning was urination no frequency or urgency and no hematuria, she is still complaining of headache and neck pain Objective - Vital Signs Vital signs: Vital Signs Temp 97.9 F 10/07/19 07:00 Pulse 96 10/07/19 12:27 Resp 16 10/07/19 07:00 BP 131/73 10/07/19 07:00 Pulse Ox 95 10/07/19 07:00 Intake & Output 10/06/19 10/07/19 10/07/19 18:59 06:59 18:59 Intake Total 540 Balance 540 Weight 38.102 kg Intake: Oral 540 Other: Voiding Method Toilet Toilet Toilet # Voids 0 3 - Exam In general patient is alert and oriented 3 in no apparent distress HEENT head normocephalic and atraumatic Neck is supple no JVD no goiter no lymphadenopathy no meningeal signs Chest exam reveals a few scattered rhonchi bilaterally no wheezing Cardiac exam reveals regular heart sounds S1 and S2 no gallops no murmurs Abdomen is soft nontender no organomegaly with normal bowel sounds Extremity exam reveals no edema no cyanosis or clubbing Neurological examination reveals no gross focal deficits - Labs CBC & Chem 7: 10/07/19 08:55 10/07/19 08:55 Labs: Abnormal Lab Results - Last 24 Hours (Table) 10/07/19 10/07/19 Range/Units 08:55 08:55 RBC 3.56 L (3.80-5.40) m/uL Hgb 10.1 L (11.4-16.0) gm/dL MCHC 29.3 L (31.0-37.0) g/dL RDW 18.1 H (11.5-15.5) % Sodium 136 L (137-145) mmol/L BUN 54 H (7-17) mg/dL Creatinine 1.92 H (0.52-1.04) mg/dL Glucose 129 H (74-99) mg/dL AST 65 H (14-36) U/L Alkaline Phosphatase 138 H (38-126) U/L Total Protein 5.2 L (6.3-8.2) g/dL Albumin 2.8 L (3.5-5.0) g/dL Microbiology - Last 24 Hours (Table) 10/05/19 18:54 Blood Culture - Preliminary Blood No Growth after 24 hours Assessment and Plan Plan: 1. Right upper lobe infiltrate suggestive of pneumonia 2. Headache and neck pain, cause is unclear could be related to degenerative disc disease, computed tomography scan of the head and cervical spine nonrevealing, neurology consultation is requested, neurology are recommending occipital block Will consult anesthesia 3. Underlying history of chronic kidney disease 4. Recent history of fall with hip fracture requiring surgery 5. Remote history of TIA 6. History of migraine headache 7. History of weight loss maintained on Marinol 8. Chronic back pain maintained on fentanyl patch 9. Underlying history of depression with anxiety disorder 10. For DVT prophylaxis we will use subcu Lovenox At this time patient is admitted to medical floor she was started on IV antibiotic pulmonary consultation was requested regarding right upper lobe infiltrate Neurology consultation was requested in regard to headache and neck pain Will follow closely
[2019-10-07] MEDS: SUMAtriptan SUCCINATE 50 MG TAB PO PRN (20:24)
[2019-10-07] MEDS: AZITHROMYCIN 500 MG TAB PO SCH (20:25)
[2019-10-07] MEDS: LORATADINE 10 MG TAB PO SCH (20:25)
[2019-10-07] MEDS: MIRTAZAPINE 15 MG TAB PO SCH (20:25)
[2019-10-08] MEDS: BUTALB/APAP/CAFF 50-325-40MG TAB PO PRN ×5 (05:10→23:16)
[2019-10-08] MEDS: LEVOTHYROXINE 88 MCG TAB PO SCH (05:10)
--- NOTE | 2019-10-08 06:33 | XR ---
EXAMINATION TYPE: XR chest 1V portable DATE OF EXAM: 10/08/2019 HISTORY: RUL pneumonia. REFERENCE: Previous study dated 10/06/2019. FINDINGS: There is worsening opacity in the right upper lobe. The left lung remains clear. Pleural sp aces are clear. The heart is not enlarged. IMPRESSION: WORSENING RIGHT UPPER LOBE PNEUMONIA.
[2019-10-08] MEDS: HYDROcodone/APAP 5-325MG 1 EACH TAB PO PRN ×2 (08:40→13:28)
[2019-10-08] MEDS: POTASSIUM CHLORIDE ER 10 MEQ TAB.ER.PRT PO SCH (08:40)
[2019-10-08] MEDS: busPIRone HCl 10 MG TAB PO SCH ×2 (08:40→19:43)
[2019-10-08] MEDS: FERROUS SULFATE 325 MG TAB PO SCH (08:40)
[2019-10-08] MEDS: DULoxetine HCL 60 MG CAPSULE.DR PO SCH (08:41)
[2019-10-08] MEDS: METOLAZONE 2.5 MG TAB PO SCH (08:41)
[2019-10-08] MEDS: FOLIC ACID 1 MG TAB PO SCH (08:41)
[2019-10-08] MEDS: CHOLESTYRAMINE (WITH SUGAR) 4 GM PACKET PO SCH ×2 (08:41→22:29)
[2019-10-08] MEDS: buPROPion XL 300 MG TAB.ER.24H PO SCH (08:41)
[2019-10-08] MEDS: PANTOPRAZOLE 40 MG TABLET PO SCH (08:41)
[2019-10-08] MEDS: FUROSEMIDE 20 MG TAB PO SCH (08:41)
[2019-10-08] MEDS: ENOXAPARIN 30 MG/0.3 ML SYRINGE SQ SCH (08:43)
[2019-10-08 08:54] LABS: Anisocytosis Slight; Basophils % (A) 0 %; Eosinophils # (A) 0.3 k/uL (0-0.7); Eosinophils % (A) 3 %; HGB 10.6 gm/dL (11.4-16.0); Hypochromasia Marked; Lymphocytes % (A) 18 %; MCH 28.3 pg (25.0-35.0); MCHC 29.5 g/dL (31.0-37.0); MCV 95.8 fL (80.0-100.0); Macrocytosis Slight; Mean Platelet Volume 7.2; Monocytes # (A) 0.6 k/uL (0-1.0); Monocytes % (A) 5 %; Neutrophils # (A) 8.5 k/uL (1.3-7.7); Neutrophils % (A) 74 %; Platelet Count 355 k/uL (150-450); RBC 3.76 m/uL (3.80-5.40); RDW 18.2 % (11.5-15.5); WBC 11.6 k/uL (3.8-10.6)
[2019-10-08 09:05] LABS: Calcium 9.1 mg/dL (8.4-10.2); Potassium 4.5 mmol/L (3.5-5.1)
[2019-10-08] MEDS: DRONABINOL 2.5 MG CAP PO SCH ×4 (10:32→23:14)
[2019-10-08] MEDS: THIAMINE 100 MG TAB PO SCH (13:09)
--- NOTE | 2019-10-08 13:20 | PN ---
PROGRESS NOTE PULMONARY/CRITICAL CARE PROGRESS NOTE: DATE OF SERVICE: 10/08/2019 This is a 74-year-old female who was admitted with a right upper lobe pneumonia. Clinically she is doing better. Radiographically, the pneumonia looks about the same or slightly worse. Her biggest issue is shortness of breath on any activity, likely related to her underlying COPD as well as occasional cough and minimal phlegm production. No fever or chills. No chest pain or chest discomfort. No nausea, vomiting, diarrhea, or abdominal pain. PHYSICAL EXAMINATION: VITAL SIGNS: Current vital signs are reviewed. Temperature 97.6, heart rate 83, respiratory rate 18, blood pressure 111/77, mean 90, room air saturation 97%. Appears in no acute distress. HEENT: Examination is grossly unremarkable. No supplemental oxygen. NECK: Supple. Full range of motion. No adenopathy. Neck veins are flat. CARDIOVASCULAR: Examination reveals regular rhythm and rate. Heart rate mid to low 80s. S1, S2 normal. No distinct murmur. Heart sounds are muffled. LUNGS: Reveal a few scattered rhonchi. No wheezes or crackles. Breath sounds are equal bilaterally but diminished throughout. ABDOMEN: Soft. Bowel sounds are heard. EXTREMITIES are intact. No cyanosis, clubbing, or edema. SKIN: Without rash. NEUROLOGIC: Examination is nonfocal. LAB DATA: Reviewed. White count 11.6, hemoglobin 10.6, hematocrit 36.0, platelet count 355,000. Sodium, potassium, chloride and CO2 all normal. Anion gap normal. BUN and creatinine were 56 and 1.58 compared to 54 and 1.92 yesterday. COVID testing was negative. Microbiology is negative. Chest x-ray reviewed. Medications are reviewed. The patient is on appropriate medications including Zithromax and Rocephin and all her usual medications. ASSESSMENT: 1. Right upper lobe community-acquired pneumonia. 2. Chronic bronchial asthma, currently stable and inactive. 3. Recent fall with hip fracture. 4. Chronic kidney disease. 5. History of deep venous thrombosis. 6. History of gastroesophageal reflux disease. 7. Degenerative joint disease. 8. History of migraine cephalgia. 9. Pancreatitis by history. 10.History of constipation. 11.History of transient ischemic attack. 12.History of spinal stenosis. 13.Anxiety/depression. 14.Protein-calorie malnutrition. PLAN: Overall, the patient seems to be doing relatively well. She is on appropriate antibiotics for community-acquired pneumonia. Her asthma is mild and inactive at this time. No need for steroids or any additional bronchodilators. We will continue to follow. MMODL / IJN: [id number] /
--- NOTE | 2019-10-08 13:40 | P.PN ---
Subjective Progress Note Date: 10/08/19 Louise dennis is a 74-year-old female who presented to [facility] emergency room with a chief complaint of headache and neck pain she was evaluated in emergency room, computed tomography scan of the brain and cervical spine did not reveal any significant abnormality, chest x-ray was positive for right upper lobe infiltrate, she was started on IV antibiotics and was admitted to medical floor, pulmonary consultation was requested. Patient denies any fever or chills she has occasional cough, she has shortness of breath, but this is a long-term complaint for her that is not changed from her baseline. Patient stated that she has history of asthma. She denies ever smoking. She stated that she has been losing weight recently. On 10/07/2019 patient was seen and examined on the medical floor there is no fever or chills no dizziness no chest pain no shortness of breath she has occas ional cough no nausea or vomiting no abdominal pain no diarrhea no burning was urination no frequency or urgency and no hematuria, she is still complaining of headache and neck pain On 10/08/2019 patient was seen and examined on the medical floor, she is alert and oriented 3 in no apparent distress, she is complaining of neck pain, she has occasional cough without sputum production, otherwise she denies any complaints, there is no fever or chills no headache or dizziness no chest pain no shortness of breath no nausea or vomiting no abdominal pain no diarrhea no burning was urination no frequency or urgency no hematuria chest x-ray revealing worsening right upper lobe infiltrate Objective - Vital Signs Vital signs: Vital Signs Temp 97.6 F 10/08/19 07:00 Pulse 93 10/08/19 07:00 Resp 18 10/08/19 07:00 BP 117/77 10/08/19 07:00 Pulse Ox 97 10/08/19 07:00 Intake & Output 10/07/19 10/08/19 10/08/19 18:59 06:59 18:59 Other: Voiding Method Toilet Toilet Toilet # Voids 2 2 - Exam In general patient is alert and oriented 3 in no apparent distress HEENT head normocephalic and atraumatic Neck is supple no JVD no goiter no lymphadenopathy no meningeal signs Chest exam reveals a few scattered rhonchi bilaterally no wheezing Cardiac exam reveals regular heart sounds S1 and S2 no gallops no murmurs Abdomen is soft nontender no organomegaly with normal bowel sounds Extremity exam reveals no edema no cyanosis or clubbing Neurological examination reveals no gross focal deficits - Labs CBC & Chem 7: 10/08/19 07:26 10/08/19 07:26 Labs: Abnormal Lab Results - Last 24 Hours (Table) 10/08/19 10/08/19 Range/Units 07:26 07:26 WBC 11.6 H (3.8-10.6) k/uL RBC 3.76 L (3.80-5.40) m/uL Hgb 10.6 L (11.4-16.0) gm/dL MCHC 29.5 L (31.0-37.0) g/dL RDW 18.2 H (11.5-15.5) % Neutrophils # 8.5 H (1.3-7.7) k/uL BUN 56 H (7-17) mg/dL Creatinine 1.58 H (0.52-1.04) mg/dL Microbiology - Last 24 Hours (Table) 10/05/19 18:54 Blood Culture - Preliminary Blood No Growth after 48 hours Assessment and Plan Plan: 1. Right upper lobe infiltrate suggestive of pneumonia, with worsening x-ray, infectious disease consultation requested 2. Headache and neck pain, cause is unclear could be related to degenerative disc disease, computed tomography scan of the head and cervical spine nonrevealing, neurology consultation is requested, neurology are recommending occipital block Will consult anesthesia 3. Underlying history of chronic kidney disease, monitoring kidney function closely 4. Recent history of fall with hip fracture requiring surgery 5. Remote history of TIA 6. History of migraine headache 7. History of weight loss maintained on Marinol 8. Chronic back pain maintained on fentanyl patch 9. Underlying history of depression with anxiety disorder 10. For DVT prophylaxis we will use subcu Lovenox At this time patient is admitted to medical floor she was started on IV antibiotic pulmonary consultation was requested regarding right upper lobe infiltrate Neurology consultation was requested in regard to headache and neck pain Will follow closely
[2019-10-08] MEDS: PIPERACILLIN-TAZOBACTAM 3.375 GM in SODIUM CHLORIDE 0.9% 100 ML IVPB SCH (17:06)
[2019-10-08] MEDS: LORATADINE 10 MG TAB PO SCH (19:42)
[2019-10-08] MEDS: CYCLOBENZAPRINE 5 MG TAB PO PRN (19:43)
[2019-10-08] MEDS: MIRTAZAPINE 15 MG TAB PO SCH ×2 (19:48→22:33)
[2019-10-09] MEDS: PIPERACILLIN-TAZOBACTAM 3.375 GM in SODIUM CHLORIDE 0.9% 100 ML IVPB SCH ×4 (00:25→23:00)
[2019-10-09] MEDS: BUTALB/APAP/CAFF 50-325-40MG TAB PO PRN ×4 (05:46→18:11)
[2019-10-09] MEDS: LEVOTHYROXINE 88 MCG TAB PO SCH (05:46)
[2019-10-09 08:07] LABS: Anisocytosis Slight; Basophils # (A) 0.1 k/uL (0-0.2); Basophils % (A) 1 %; Eosinophils # (A) 0.4 k/uL (0-0.7); Eosinophils % (A) 4 %; HCT 38.6 % (34.0-46.0); HGB 11.7 gm/dL (11.4-16.0); Hypochromasia Marked; Lymphocytes # (A) 2.1 k/uL (1.0-4.8); Lymphocytes % (A) 23 %; MCH 29.4 pg (25.0-35.0); MCHC 30.4 g/dL (31.0-37.0); MCV 96.6 fL (80.0-100.0); Macrocytosis Slight; Mean Platelet Volume 7.2; Monocytes # (A) 0.5 k/uL (0-1.0); Monocytes % (A) 5 %; Neutrophils # (A) 5.8 k/uL (1.3-7.7); Neutrophils % (A) 65 %; Platelet Count 384 k/uL (150-450); RBC 3.99 m/uL (3.80-5.40); RDW 17.6 % (11.5-15.5)
[2019-10-09 08:14] LABS: Albumin 3.2 g/dL (3.5-5.0); Potassium 4.3 mmol/L (3.5-5.1); Total Bilirubin 0.4 mg/dL (0.2-1.3); Total Protein 5.8 g/dL (6.3-8.2)
[2019-10-09] MEDS: POTASSIUM CHLORIDE ER 10 MEQ TAB.ER.PRT PO SCH (08:26)
[2019-10-09] MEDS: HYDROcodone/APAP 5-325MG 1 EACH TAB PO PRN (08:26)
[2019-10-09] MEDS: ENOXAPARIN 30 MG/0.3 ML SYRINGE SQ SCH (08:27)
[2019-10-09] MEDS: DULoxetine HCL 60 MG CAPSULE.DR PO SCH (08:27)
[2019-10-09] MEDS: CHOLESTYRAMINE (WITH SUGAR) 4 GM PACKET PO SCH ×2 (08:27→19:37)
[2019-10-09] MEDS: FUROSEMIDE 20 MG TAB PO SCH (08:27)
[2019-10-09] MEDS: DRONABINOL 2.5 MG CAP PO SCH ×4 (08:27→19:39)
[2019-10-09] MEDS: FERROUS SULFATE 325 MG TAB PO SCH (08:27)
[2019-10-09] MEDS: busPIRone HCl 10 MG TAB PO SCH ×2 (08:27→19:33)
[2019-10-09] MEDS: PANTOPRAZOLE 40 MG TABLET PO SCH (08:27)
[2019-10-09] MEDS: buPROPion XL 300 MG TAB.ER.24H PO SCH (08:27)
--- NOTE | 2019-10-09 10:21 | P.CONS ---
History of Present Illness - Reason for Consult Consult date: 10/08/19 Worsening right upper lobe pneumonia Requesting physician: Palmer Desir - Chief Complaint Neck pain x weeks and vomiting times days - History of Present Illness Patient is a 74-year-old female presented to the ER with chief complaints of neck pain that has been getting worse over the last few weeks apparently after patient did have a fall in May when she broke her hip with worsening of her pain the patient presented to the hospital patient was evaluated by the ER physician about the patient has been afebrile did have a normal white count she did have CT of the brain and cervical spine did not show any fracture or any bleed she did have a chest x-ray with right upper been fitted concern for possible commitment or pneumonia patient has been started on Rocephin and Zithromax patient mentioning that last night she has some much pain in her neck that she threw up as well as he did have an episode of vomiting this morning the patient did have a chest x-ray repeated this morning we did shows worsening right upper lobe pneumonia and the patient also have jump in her white count to 11.1 thousand international the was consulted for further management of antibiotic therapy in view of her worsening pneumonia Review of Systems Positive point has been mentioned in the HPI rest of the systems are negative Past Medical History Past Medical History: Asthma, Deep Vein Thrombosis (DVT), GERD/Reflux Additional Past Medical History / Comment(s): OA IN NECK,BACK AND BILATERAL ARMS.stomach ulcers, edema,low calcium; migraine headaches, pancreatitis,constipation,tia,spinal stenosis(had sx ) History of Any Multi-Drug Resistant Organisms: None Reported Past Surgical History: Back Surgery, Bowel Resection Additional Past Surgical History / Comment(s): LOWER BACK SURGERY lamenectomy/discetomy then had a revison of that sx. 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 PT IS ABLE TO DRIVE A CAR. 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 Smoking Status: Never smoker Past Alcohol Use History: None Reported Past Drug Use History: None Reported - Past Family History Father Family Medical History: Cancer, Coronary Artery Disease (CAD) Additional Family Medical History / Comment(s): FATHER HAD BLADDER AND KIDNEY CANCER. FATHER HAD TB WHEN HE WAS A CHILD .FATHER AT AGE 87. Mother Family Medical History: Cancer Additional Family Medical History / Comment(s): MOTHER AT AGE 58 OF OVARIAN CANCER. Medications and Allergies Home Medications Medication Instructions Recorded Confirmed Type DULoxetine HCL [Cymbalta] 60 mg PO DAILY 09/17/13 10/05/19 History Folic Acid 1 mg PO DAILY@1200 #1 tablet 04/18/14 10/05/19 Rx Thiamine [Vitamin B-1] 100 mg PO DAILY@1200 #1 tablet 04/18/14 10/05/19 Rx fentaNYL 100MCG/HR PATCH 1 patch TRANSDERM Q72H 04/10/15 10/05/19 History [Duragesic 100MCG/HR] Cyanocobalamin [Vitamin B-12 1,000 mcg SQ [id number] 11/06/15 10/05/19 History Injection] Ferrous Sulfate [Iron (65 MG 650 mg PO DAILY 11/06/15 10/05/19 History Elemental)] Furosemide [Lasix] 20 mg PO DAILY 11/06/15 10/05/19 History SUMAtriptan SUCCINATE [Imitrex] 50 mg PO DAILY PRN 11/06/15 10/05/19 History buPROPion HCL [Wellbutrin XL] 300 mg PO DAILY 11/06/15 10/05/19 History busPIRone HCL 30 mg PO BID 11/06/15 10/05/19 History Levocetirizine Dihydrochloride 5 mg PO HS 05/31/17 10/05/19 History [Xyzal] Mirtazapine [Remeron Soluspan] 60 mg PO HS 05/31/17 10/05/19 History Potassium Chloride ER [K-Dur 10] 30 meq PO DAILY 04/01/19 10/05/19 History Calcitriol 1 mcg PO MOWEFR 06/07/19 10/05/19 History Calcium/Magnesium 250mg/300mg 1 tab PO DAILY 06/07/19 10/05/19 History Dronabinol [Marinol] 5 mg PO QID 06/07/19 10/05/19 History Ergocalciferol [Vitamin D2 50,000 units PO QMONTH 06/07/19 10/05/19 History (DRISDOL)] Levothyroxine Sodium [Synthroid] 88 mcg PO DAILY 06/07/19 10/05/19 History Metolazone [Zaroxolyn] 2.5 mg PO Q48H 06/07/19 10/05/19 History hydrOXYzine PAMOATE [Vistaril] 50 mg PO TID PRN 06/07/19 10/05/19 History Albuterol Inhaler [Ventolin Hfa 1 puff INHALATION RT-Q6H PRN 10/05/19 10/05/19 History Inhaler] Cholestyramine (with Sugar) 4 gm PO BID 10/05/19 10/05/19 History [Cholestyramine Packet] HYDROcodone/APAP 5-325MG [[place] 1 - 2 tab PO TID PRN 10/05/19 10/05/19 History 5-325] Omeprazole [PriLOSEC] 20 mg PO BID 10/05/19 10/05/19 History Allergies Allergy/AdvReac Type Severity Reaction Status Date / Time poliomyelitis vaccine, live Allergy Unknown Verified 10/05/19 19:14 oral Childhood [poliomyelitis vaccine,live] DUST Allergy Itching Uncoded 10/05/19 16:49 MOLDS Allergy Itching Uncoded 10/05/19 16:49 Physical Exam Vitals: Vital Signs Temp Pulse Pulse Pulse Resp BP Pulse Ox 10/08/19 07:00 97.6 F 93 18 117/77 97 10/08/19 03:33 97.7 F 18 119/77 96 10/08/19 00:00 18 10/07/19 19:48 90 18 10/07/19 19:42 97.6 F 103 H 18 119/76 95 10/07/19 19:38 92 18 10/07/19 15:00 97.9 F 103 H 18 117/73 94 L Intake and Output 10/07/19 10/08/19 10/08/19 22:59 06:59 14:59 Other: Voiding Method Toilet Toilet Toilet # Voids 1 2 GENERAL DESCRIPTION: An elderly female lying in bed, no distress. No tachypnea or accessory muscle of respiration use. HEENT: Shows Pallor , no scleral icterus. Oral mucous membrane is dry. No pharyngeal erythema or thrush NECK: Trachea central, no thyromegaly. LUNGS: Unlabored breathing. Decreased intensity of breath sounds. No wheeze or crackle. HEART: S1, S2, regular rate and rhythm. No loud murmur ABDOMEN: Soft, no tenderness , guarding or rigidity, no organomegaly EXTREMITIES: No edema of feet. SKIN: No rash, no masses palpable. NEUROLOGICAL: The patient is awake, alert, oriented x3, mood and affect normal. Results CBC & Chem 7: 10/09/19 07:03 10/09/19 07:03 Labs: Abnormal Lab Results - Last 24 Hours (Table) 10/08/19 10/08/19 Range/Units 07:26 07:26 WBC 11.6 H (3.8-10.6) k/uL RBC 3.76 L (3.80-5.40) m/uL Hgb 10.6 L (11.4-16.0) gm/dL MCHC 29.5 L (31.0-37.0) g/dL RDW 18.2 H (11.5-15.5) % Neutrophils # 8.5 H (1.3-7.7) k/uL BUN 56 H (7-17) mg/dL Creatinine 1.58 H (0.52-1.04) mg/dL Microbiology - Last 24 Hours (Table) 10/05/19 18:54 Blood Culture - Preliminary Blood No Growth after 48 hours Assessment and Plan Assessment: 1-patient with worsening right upper lobe pneumonia seen on the chest x-ray this morning in this patient also have a slight worsening of her white count patient admitted hospital predominantly with the neck pain however reporting recent worsening of her pain and vomiting with a question of possible aspiration pneumonitis failing Rocephin and Zithromax therapy (1) Aspiration pneumonia Current Visit: Yes Status: Acute Code(s): J69.0 - PNEUMONITIS DUE TO INHALATION OF FOOD AND VOMIT SNOMED Code(s): 694261133 Plan: 1- we will try to obtained sputum for Gram stain and culture 2-discontinue Rocephin and Zithromax 3-start the patient on Zosyn 3.75 g every 8 hours We will follow on clinical condition and cultures to further adjust medication if needed Thank you for this consultation will follow this patient with you Time with Patient: Greater than 30
--- NOTE | 2019-10-09 12:32 | P.PN ---
Subjective Progress Note Date: 10/09/19 Louise dennis is a 74-year-old female who presented to [facility] emergency room with a chief complaint of headache and neck pain she was evaluated in emergency room, computed tomography scan of the brain and cervical spine did not reveal any significant abnormality, chest x-ray was positive for right upper lobe infiltrate, she was started on IV antibiotics and was admitted to medical floor, pulmonary consultation was requested. Patient denies any fever or chills she has occasional cough, she has shortness of breath, but this is a long-term complaint for her that is not changed from her baseline. Patient stated that she has history of asthma. She denies ever smoking. She stated that she has been losing weight recently. On 10/07/2019 patient was seen and examined on the medical floor there is no fever or chills no dizziness no chest pain no shortness of breath she has occas ional cough no nausea or vomiting no abdominal pain no diarrhea no burning was urination no frequency or urgency and no hematuria, she is still complaining of headache and neck pain On 10/08/2019 patient was seen and examined on the medical floor, she is alert and oriented 3 in no apparent distress, she is complaining of neck pain, she has occasional cough without sputum production, otherwise she denies any complaints, there is no fever or chills no headache or dizziness no chest pain no shortness of breath no nausea or vomiting no abdominal pain no diarrhea no burning was urination no frequency or urgency no hematuria chest x-ray revealing worsening right upper lobe infiltrate On 10/09/2019 patient was seen and examined on the medical floor she is alert and oriented 3 she is complaining of severe pain in her neck, actually she is crying was pain at this time, she has fentanyl patch 100 g every 72 hours she had a new patch put on today, she also has [place], Fioricet, and Imitrex ordered for headache, there is a consult for anesthesia for possible injection in the neck, hopefully she will be seen by them tomorrow. At this time patient is requesting something more for pain Will order Dilaudid 0.5 mg when necessary. Otherwise she denies any complaints there is no fever or chills no headache or dizziness no chest pain no shortness of breath no cough no nausea or vomiting no abdominal pain no diarrhea no burning was urination no frequency or urgency no hematuria. Objective - Vital Signs Vital signs: Vital Signs Temp 97.7 F 10/09/19 07:00 Pulse 87 10/09/19 07:00 Resp 17 10/09/19 07:00 BP 113/75 10/09/19 07:00 Pulse Ox 98 10/09/19 07:00 Intake & Output 10/08/19 10/09/19 10/09/19 18:59 06:59 18:59 Intake Total 600 450 Balance 600 450 Intake: Intake, IV Titration 150 Amount Piperacillin-Tazobactam 3 100 .375 gm In Sodium Chloride 0.9% 100 ml @ 25 mls/hr IVPB Q8HR [facility] Rx# :[id number] 1 gm In 50 Sodium Chloride 0.9% 50 ml @ 100 mls/hr IVPB Q24HR [facility] Rx#:[id number] Oral 600 300 Other: Voiding Method Toilet Toilet # Voids 1 1 - Exam In general patient is alert and oriented 3 in no apparent distress HEENT head normocephalic and atraumatic Neck is supple no JVD no goiter no lymphadenopathy no meningeal signs Chest exam reveals a few scattered rhonchi bilaterally no wheezing Cardiac exam reveals regular heart sounds S1 and S2 no gallops no murmurs Abdomen is soft nontender no organomegaly with normal bowel sounds Extremity exam reveals no edema no cyanosis or clubbing Neurological examination reveals no gross focal deficits - Labs CBC & Chem 7: 10/09/19 07:03 10/09/19 07:03 Labs: Abnormal Lab Results - Last 24 Hours (Table) 10/09/19 10/09/19 Range/Units 07:03 07:03 MCHC 30.4 L (31.0-37.0) g/dL RDW 17.6 H (11.5-15.5) % BUN 60 H (7-17) mg/dL Creatinine 1.66 H (0.52-1.04) mg/dL AST 66 H (14-36) U/L ALT 44 H (4-34) U/L Alkaline Phosphatase 164 H (38-126) U/L Total Protein 5.8 L (6.3-8.2) g/dL Albumin 3.2 L (3.5-5.0) g/dL Microbiology - Last 24 Hours (Table) 06/17/20 18:54 Blood Culture - Preliminary Blood No Growth after 72 hours Assessment and Plan Plan: 1. Right upper lobe infiltrate suggestive of pneumonia, with worsening x-ray, infectious disease consultation requested 2. Headache and neck pain, cause is unclear could be related to degenerative disc disease, computed tomography scan of the head and cervical spine nonrevealing, neurology consultation is requested, neurology are recommending occipital block Will consult anesthesia 3. Underlying history of chronic kidney disease, monitoring kidney function closely 4. Recent history of fall with hip fracture requiring surgery 5. Remote history of TIA 6. History of migraine headache 7. History of weight loss maintained on Marinol 8. Chronic back pain maintained on fentanyl patch 9. Underlying history of depression with anxiety disorder 10. For DVT prophylaxis we will use subcu Lovenox At this time patient is admitted to medical floor she was started on IV antibiotic pulmonary consultation was requested regarding right upper lobe infiltrate Neurology consultation was requested in regard to headache and neck pain Will follow closely
[2019-10-09] MEDS: HYDROmorphone 0.5 MG/0.5 ML SYRINGE IVP PRN ×4 (12:44→23:00)
[2019-10-09] MEDS: FOLIC ACID 1 MG TAB PO SCH (12:45)
[2019-10-09] MEDS: THIAMINE 100 MG TAB PO SCH (12:45)
--- NOTE | 2019-10-09 14:33 | P.PN ---
Subjective Progress Note Date: 10/09/19 Principal diagnosis: Right upper lobe community-acquired pneumonia The patient is seen today 10/07/2019 in follow-up on the regular medical floor. She is currently awake and alert in no acute distress. Resting comfortably in bed. Still having some head and neck pain. Still some shortness of breath with exertion. Loose nonproductive cough. Blood cultures reveal no growth. White count 10.1. Hemoglobin 10.1. Sodium 136. Potassium 4.9. Creatinine 1.92. She is maintained on ceftriaxone and azithromycin along with bronchodilators. The patient is seen today 10/09/2019 in follow-up on the regular medical floor. She is currently awake and alert in no acute distress. She continues have ongoing complaints of neck pain. Denies any worsening shortness of breath, cou gh or congestion. She's been maintaining O2 saturations in the 90s on room air. Afebrile. Hemodynamically stable. Blood culture reveals no growth. White count 9.0. Hemoglobin 11.7. Sodium 137. Potassium 4.3. Creatinine 1.66. Objective - Vital Signs Vital signs: Vital Signs Temp 97.7 F 10/09/19 07:00 Pulse 87 10/09/19 07:00 Resp 17 10/09/19 07:00 BP 113/75 10/09/19 07:00 Pulse Ox 98 10/09/19 07:00 Intake & Output 10/08/19 10/09/19 10/09/19 18:59 06:59 18:59 Intake Total 600 450 Balance 600 450 Intake: Intake, IV Titration 150 Amount Piperacillin-Tazobactam 3 100 .375 gm In Sodium Chloride 0.9% 100 ml @ 25 mls/hr IVPB Q8HR [facility] Rx# :[id number] cefTRIAXone 1 gm In 50 Sodium Chloride 0.9% 50 ml @ 100 mls/hr IVPB Q24HR [facility] Rx#:[id number] Oral 600 300 Other: Voiding Method Toilet Toilet Toilet # Voids 1 1 - Exam GENERAL EXAM: Alert, active, very pleasant, frail cachectic 74-year-old female patient, on room air, comfortable in no apparent distress. HEAD: Normocephalic. EYES: Normal reaction of pupils, equal size. NOSE: Clear with pink turbinates. THROAT: No erythema or exudates. NECK: No masses, no JVD. CHEST: No chest wall deformity. LUNGS: Equal air entry with few scattered rhonchi in the right lung, diminished. CVS: S1 and S2 normal with no audible murmur, regular rhythm. ABDOMEN: No hepatosplenomegaly, normal bowel sounds, no guarding or rigidity. SPINE: No scoliosis or deformity SKIN: No rashes CENTRAL NERVOUS SYSTEM: No focal deficits, tone is normal in all 4 extremities. EXTREMITIES: There is no peripheral edema. No clubbing, no cyanosis. Peripheral pulses are intact. - Labs CBC & Chem 7: 10/09/19 07:03 10/09/19 07:03 Labs: Abnormal Lab Results - Last 24 Hours (Table) 10/09/19 10/09/19 Range/Units 07:03 07:03 MCHC 30.4 L (31.0-37.0) g/dL RDW 17.6 H (11.5-15.5) % BUN 60 H (7-17) mg/dL Creatinine 1.66 H (0.52-1.04) mg/dL AST 66 H (14-36) U/L ALT 44 H (4-34) U/L Alkaline Phosphatase 164 H (38-126) U/L Total Protein 5.8 L (6.3-8.2) g/dL Albumin 3.2 L (3.5-5.0) g/dL Microbiology - Last 24 Hours (Table) 10/05/19 18:54 Blood Culture - Preliminary Blood No Growth after 72 hours Assessment and Plan Assessment: 1 Acute community-acquired right upper lobe pneumonia 2 History of chronic bronchial asthma currently stable 3 Recent fall with hip fracture 4 Chronic kidney disease 5 History of DVT 6 GERD 7 Degenerative joint disease 8 History of migraine cephalgia 9 History of pancreatitis 10 History of constipation 11 History of TIA 12 History of spinal stenosis 13 History of anxiety/depression/panic disorder 14 Protein calorie malnutrition 15 Poor overall functional performance based and the above-mentioned multiple comorbidities. Plan: The patient was seen and evaluated by Dr. Sanchez Continue the current medication Repeat chest x-ray in a.m. Increase her activity as tolerated We'll continue to follow and make further recommendations based on her clinical status I, the cosigning physician, performed a history & physical examination of the patient. Lungs sounds with scattered rhonchi in the right lung, diminished. Maintaining good O2 saturations in the 90s on room air. I discussed the assessment and plan of care with my nurse practitioner, Leyla Grace. I attest to the above note as dictated by her.
[2019-10-09] MEDS: MIRTAZAPINE 15 MG TAB PO SCH (19:33)
[2019-10-09] MEDS: LORATADINE 10 MG TAB PO SCH (19:33)
[2019-10-10] MEDS: HYDROmorphone 0.5 MG/0.5 ML SYRINGE IVP PRN ×6 (06:03→23:33)
[2019-10-10] MEDS: LEVOTHYROXINE 88 MCG TAB PO SCH (06:03)
--- NOTE | 2019-10-10 07:19 | PN ---
PROGRESS NOTE DATE OF SERVICE: 10/09/2019 REASON FOR FOLLOWUP: Possible aspiration pneumonia. INTERVAL HISTORY: Patient is currently afebrile. Still complaining of pain to the neck area and feeling nauseated. Unable to keep anything down. No chest pain. No shortness of breath. Minimal cough. No abdominal pain. No diarrhea. PHYSICAL EXAMINATION: Blood pressure 104/67 with a pulse of 102. Temperature 97.7. She is 97% on room air. General description: The patient is an elderly female lying in bed in no distress. Respiratory system: Unlabored breathing, decreased breath sounds in the base, with no wheeze. Heart S1, S2. Regular rate and rhythm. Abdomen soft, no tenderness. LABS: Hemoglobin 11.7, white count 9.0, BUN of 16, creatinine 1.66. Blood cultures have been negative. DIAGNOSTIC IMPRESSION AND PLAN: Patient with worsening right upper lobe pneumonia in this patient complaining of vomiting because of her neck pain with concern for possible aspiration pneumonitis. Patient is currently on Zosyn to continue. We will try to obtain a sputum to narrow down her antibiotics. Continue supportive care. MMODL / IJN: [id number] /
[2019-10-10] MEDS: buPROPion XL 300 MG TAB.ER.24H PO SCH (08:02)
[2019-10-10] MEDS: busPIRone HCl 10 MG TAB PO SCH ×2 (08:02→20:11)
[2019-10-10] MEDS: DRONABINOL 2.5 MG CAP PO SCH ×4 (08:02→20:12)
[2019-10-10] MEDS: BUTALB/APAP/CAFF 50-325-40MG TAB PO PRN ×4 (08:02→21:53)
[2019-10-10] MEDS: PIPERACILLIN-TAZOBACTAM 3.375 GM in SODIUM CHLORIDE 0.9% 100 ML IVPB SCH ×2 (08:02→20:08)
[2019-10-10] MEDS: PANTOPRAZOLE 40 MG TABLET PO SCH (08:02)
[2019-10-10] MEDS: METOLAZONE 2.5 MG TAB PO SCH (08:03)
[2019-10-10] MEDS: POTASSIUM CHLORIDE ER 10 MEQ TAB.ER.PRT PO SCH (08:03)
[2019-10-10] MEDS: FUROSEMIDE 20 MG TAB PO SCH (08:03)
[2019-10-10] MEDS: FERROUS SULFATE 325 MG TAB PO SCH (08:03)
[2019-10-10] MEDS: CHOLESTYRAMINE (WITH SUGAR) 4 GM PACKET PO SCH ×2 (08:04→20:08)
[2019-10-10] MEDS: CALCITRIOL 0.25 MCG CAP PO SCH (08:04)
[2019-10-10] MEDS: ENOXAPARIN 30 MG/0.3 ML SYRINGE SQ SCH (08:05)
[2019-10-10] MEDS: DULoxetine HCL 60 MG CAPSULE.DR PO SCH (08:05)
--- NOTE | 2019-10-10 08:05 | CDI ---
Documentation Clarification Form Date: 10/07/2019 01:46:00 PM From: Zakiya Rivera RN, CCDS Admit Date: 10/05/2019 06:48:00 PM Patient Name: Louise Sutton Visit Number: [id number] Discharge Date: ATTENTION: The Clinical Documentation Specialists (CDI) and [facility] Coding Staff appreciate your assistance in clarifying documentation. Please respond to the clarification below the line at the bottom and electronically sign. The CDI & [facility] Coding staff will review the response and follow-up if needed. Please note: Queries are made part of the Legal Health Record. If you have any questions, please contact the author of this message via ITS. Dr. Palmer Desir Malnutrition has been documented in nutritional assessment and verification of diagnosis from the attending is requested. History/Risk Factors: Pneumonia, Failure to thrive, Stomach ulcers with 1/2 of stomach removed 1989, 1994, Clinical Indicators: 74-year-old female present with on 10/04 with complaints of headache. ED reports she appeared dehydrated with dry oropharynx and was tachycardic. 10/05 Vital signs @16:46: 136/83 124 20 98.0 10/05 Nutritional assessment: physical findings appearance: Emaciated, underweight 10/05 Labs: Total protein 6.4, Albumin 3.3, BUN 18, CR 1.12 Current BMI:15.4 Insufficient energy intake: Yes Weight Loss: 6 lb loss x4 months although patient chronically underweight Loss of subcutaneous fat: yes Loss of muscle mass: yes: visible severe muscle mass wasting and subcutaneous fat loss Treatment: Marinol 5 mg po qid 10/05 Dietary Consult: Yes, malnutrition, severe protein-calorie in the context of chronic illness General/healthful diet Ensure Enlive, magic cup as trial Nutrition Education High protein/calorie foods Monitor supplement/snack intake, weight In your professional opinion, can you please clarify if these findings signify one of the following conditions? Mild Protein-Calorie Malnutrition Moderate Protein-Calorie Malnutrition Severe Protein-Calorie Malnutrition Other condition, please specify Unable to determine (Last Revision: October 2018) moderate protein calorie malnutrition MTDD
--- NOTE | 2019-10-10 08:51 | XR ---
EXAMINATION TYPE: XR chest 1V portable DATE OF EXAM: 10/10/2019 COMPARISON: 10/08/2019 HISTORY: Cough TECHNIQUE: Single frontal view of the chest is obtained. FINDINGS: Large area of consolidation right upper lobe compatible with pneumonia. Left lung demonstr ates subsegmental changes along the medial margin of the left lung base. Underlying COPD noted. Posts urgical change in the epigastrium. IMPRESSION: 1. Stable right upper lobe pneumonia. 2. Retrocardiac density likely related to hiatal hernia. 3. Correlate for COPD
[2019-10-10 10:18] LABS: Anisocytosis Slight; Basophils # (A) 0.1 k/uL (0-0.2); Basophils % (A) 1 %; Eosinophils # (A) 0.4 k/uL (0-0.7); Eosinophils % (A) 5 %; HCT 35.3 % (34.0-46.0); HGB 10.4 gm/dL (11.4-16.0); Hypochromasia Marked; Lymphocytes # (A) 1.6 k/uL (1.0-4.8); Lymphocytes % (A) 20 %; MCH 28.3 pg (25.0-35.0); MCHC 29.4 g/dL (31.0-37.0); MCV 96.5 fL (80.0-100.0); Macrocytosis Slight; Mean Platelet Volume 7.2; Monocytes # (A) 0.4 k/uL (0-1.0); Monocytes % (A) 6 %; Neutrophils # (A) 5.1 k/uL (1.3-7.7); Neutrophils % (A) 66 %; Platelet Count 366 k/uL (150-450); RBC 3.66 m/uL (3.80-5.40); RDW 17.8 % (11.5-15.5); WBC 7.7 k/uL (3.8-10.6)
[2019-10-10 10:34] LABS: Albumin 3.1 g/dL (3.5-5.0); Calcium 8.6 mg/dL (8.4-10.2); Potassium 3.7 mmol/L (3.5-5.1); Total Bilirubin 0.2 mg/dL (0.2-1.3); Total Protein 5.5 g/dL (6.3-8.2)
--- NOTE | 2019-10-10 11:02 | P.NPCON ---
History of Present Illness - Reason for Consult chronic renal failure - History of Present Illness Reason for consultation: Acute kidney injury on chronic kidney disease History of present illness: Patient is a 74-year-old female seen in renal consultation for acute kidney injury on chronic kidney disease. Patient has chronic kidney disease stage IIIB/4 with baseline creatinine fluctuating in the range of 1.5-2.5. Patient's creatinine in February 2019 was as high as 2.5. This admission it has been in the range of 1.6-1.9. She presented to the hospital with neck pain. CT revealed no evidence of fractures. Patient states that oral intake is fair. She does admit to intermittent vomiting. No diarrhea. Patient states vomiting typically occurs when she has and headache. She has history of right renal atrophy. No history of diabetes. No chest pain or shortness of breath. She is maintained on Lasix 20 mg daily for edema. Currently she has no edema but states that if she doesn't take Lasix her legs do swell up. Denies use of nonsteroidals. Denies family history of renal disease. No active complaints at this time. Hemodynamically stable. Vital signs are stable. General: The patient appeared well nourished and normally developed. HEENT: Head exam is unremarkable. Neck is without jugular venous distension. LUNGS: Lungs are clear to auscultation and percussion. Breath sounds decreased. HEART: Rate and Rhythm are regular. ABDOMEN: soft, nontender. EXTREMITITES: No edema. 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 PT IS ABLE TO DRIVE A CAR. 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 Smoking Status: Never smoker Past Alcohol Use History: None Reported Past Drug Use History: None Reported - Past Family History Father Family Medical History: Cancer, Coronary Artery Disease (CAD) Additional Family Medical History / Comment(s): FATHER HAD BLADDER AND KIDNEY CANCER. FATHER HAD TB WHEN HE WAS A CHILD .FATHER AT AGE 87. Mother Family Medical History: Cancer Additional Family Medical History / Comment(s): MOTHER AT AGE 58 OF OVARIAN CANCER. Medications and Allergies Home Medications Medication Instructions Recorded Confirmed Type DULoxetine HCL [Cymbalta] 60 mg PO DAILY 09/17/13 10/05/19 History Folic Acid 1 mg PO DAILY@1200 #1 tablet 04/18/14 10/05/19 Rx Thiamine [Vitamin B-1] 100 mg PO DAILY@1200 #1 tablet 04/18/14 10/05/19 Rx fentaNYL 100MCG/HR PATCH 1 patch TRANSDERM Q72H 04/10/15 10/05/19 History [Duragesic 100MCG/HR] Cyanocobalamin [Vitamin B-12 1,000 mcg SQ [id number] 11/06/15 10/05/19 History Injection] Ferrous Sulfate [Iron (65 MG 650 mg PO DAILY 11/06/15 10/05/19 History Elemental)] Furosemide [Lasix] 20 mg PO DAILY 11/06/15 10/05/19 History SUMAtriptan SUCCINATE [Imitrex] 50 mg PO DAILY PRN 11/06/15 10/05/19 History buPROPion HCL [Wellbutrin XL] 300 mg PO DAILY 11/06/15 10/05/19 History busPIRone HCL 30 mg PO BID 11/06/15 10/05/19 History Levocetirizine Dihydrochloride 5 mg PO HS 05/31/17 10/05/19 History [Xyzal] Mirtazapine [Remeron Soluspan] 60 mg PO HS 05/31/17 10/05/19 History Potassium Chloride ER [K-Dur 10] 30 meq PO DAILY 04/01/19 10/05/19 History Calcitriol 1 mcg PO MOWEFR 06/07/19 10/05/19 History Calcium/Magnesium 250mg/300mg 1 tab PO DAILY 06/07/19 10/05/19 History Dronabinol [Marinol] 5 mg PO QID 06/07/19 10/05/19 History Ergocalciferol [Vitamin D2 50,000 units PO QMONTH 06/07/19 10/05/19 History (DRISDOL)] Levothyroxine Sodium [Synthroid] 88 mcg PO DAILY 06/07/19 10/05/19 History Metolazone [Zaroxolyn] 2.5 mg PO Q48H 06/07/19 10/05/19 History hydrOXYzine PAMOATE [Vistaril] 50 mg PO TID PRN 06/07/19 10/05/19 History Albuterol Inhaler [Ventolin Hfa 1 puff INHALATION RT-Q6H PRN 10/05/19 10/05/19 History Inhaler] Cholestyramine (with Sugar) 4 gm PO BID 10/05/19 10/05/19 History [Cholestyramine Packet] HYDROcodone/APAP 5-325MG [[place] 1 - 2 tab PO TID PRN 10/05/19 10/05/19 History 5-325] Omeprazole [PriLOSEC] 20 mg PO BID 10/05/19 10/05/19 History Allergies Allergy/AdvReac Type Severity Reaction Status Date / Time poliomyelitis vaccine, live Allergy Unknown Verified 10/05/19 19:14 oral Childhood [poliomyelitis vaccine,live] DUST Allergy Itching Uncoded 10/05/19 16:49 MOLDS Allergy Itching Uncoded 10/05/19 16:49 Physical Exam Vitals: Vital Signs Temp Pulse Resp BP Pulse Ox 10/10/19 07:00 97.6 F 82 16 111/64 96 10/10/19 02:34 97.6 F 93 18 118/74 95 10/09/19 19:32 97.7 F 102 H 18 104/67 97 10/09/19 15:00 97.7 F 105 H 18 112/72 97 Intake and Output 10/09/19 10/10/19 10/10/19 22:59 06:59 14:59 Intake Total 400 Balance 400 Intake: Intake, IV Titration 100 Amount Piperacillin-Tazobactam 3 100 .375 gm In Sodium Chloride 0.9% 100 ml @ 25 mls/hr IVPB Q8HR [facility] Rx# :[id number] Oral 300 Other: Voiding Method Toilet Toilet Toilet # Voids 2 Results - Lab Results Most recent lab results Calcium 8.6 mg/dL (8.4-10.2) 10/10/19 08:33 Magnesium 1.9 mg/dL (1.6-2.3) 10/05/19 17:45 10/10/19 08:33 10/10/19 08:33 Assessment and Plan Plan: Assessment: 1. Chronic kidney disease stage IIIB/4 with baseline creatinine in the range of 1.5-2.5. GFR currently at baseline. Etiology is nephrosclerosis and right renal atrophy. 2. Right upper lobe pneumonia maintained on antibiotics. 3. Chronic kidney disease mineral bone disease maintained on calcitriol. 4. Left femoral neck fracture status post hemiarthroplasty in May 2019. 5. Chronic lower extremity edema. Stable. Plan: Maintain Lasix 20 mg once daily. Continue to monitor renal function and urine output. Thank you for the consultation. I will continue to follow the patient with you during her hospital stay.
[2019-10-10] MEDS: FOLIC ACID 1 MG TAB PO SCH (12:10)
[2019-10-10] MEDS: THIAMINE 100 MG TAB PO SCH (12:10)
--- NOTE | 2019-10-10 13:32 | CT ---
EXAMINATION TYPE: CT chest wo con DATE OF EXAM: 10/10/2019 COMPARISON: 08/26/2013 HISTORY: Right lung pneumonia, mass CT DLP: 130.7 mGycm, Automated exposure control for dose reduction was used. CONTRAST: Performed injected with mL of . TECHNIQUE: Axial images were obtained at 5 mm thick sections. Reconstructed images are reviewed on [employer] computer in the coronal plane. FINDINGS: Portion of the thyroid visualized is normal. There is interval development of a large consolidation posterior right midlung measuring approximatel y 8 x 4.8 cm. Infectious etiologies such as pneumonia should be considered. Underlying neoplasm shoul d be considered. There are couple small nodules within the periphery of the right mid to lower lung field measuring 0. 8-0.5 cm. Series 201 image 26. There is a 0.7 x 0.9 cm density in the posterior lateral left lower guido ng field. Punctate nodularity is within the right lower lobe No enlarged mediastinal or hilar adenopathy is evident. The ascending aorta diameter at the level o f the main pulmonary artery is 3.8 cm. The main pulmonary artery diameter at the bifurcation is 2.4 cm. Some coronary artery calcification is present. Limited CT sections are obtained through the upper abdomen. There is moderate size hiatal hernia pres ent. Abdomen is otherwise essentially unremarkable. IMPRESSIONS: 1. Large consolidation posterior right upper lobe lung base. Infectious etiology and neoplasm are wit hin the differential. 2. There are additional smaller nodules within the lower lung calixto bilaterally discussed above. Met astatic disease and infectious etiologies could be considered.
--- NOTE | 2019-10-10 14:09 | P.PN ---
Subjective Progress Note Date: 10/10/19 Principal diagnosis: Right upper lobe community-acquired pneumonia The patient is seen today 10/07/2019 in follow-up on the regular medical floor. She is currently awake and alert in no acute distress. Resting comfortably in bed. Still having some head and neck pain. Still some shortness of breath with exertion. Loose nonproductive cough. Blood cultures reveal no growth. White count 10.1. Hemoglobin 10.1. Sodium 136. Potassium 4.9. Creatinine 1.92. She is maintained on ceftriaxone and azithromycin along with bronchodilators. The patient is seen today 10/09/2019 in follow-up on the regular medical floor. She is currently awake and alert in no acute distress. She continues have ongoing complaints of neck pain. Denies any worsening shortness of breath, cou gh or congestion. She's been maintaining O2 saturations in the 90s on room air. Afebrile. Hemodynamically stable. Blood culture reveals no growth. White count 9.0. Hemoglobin 11.7. Sodium 137. Potassium 4.3. Creatinine 1.66. On 10/10/2019 patient seen in follow-up on the general medical floor. She is resting comfortably in bed, room air pulse ox is 96%, she is afebrile, hemodynamically stable. She remains on Zosyn, her chest x-ray this morning showed some improvement in the appearance of right upper lobe pneumonia. Today's labs have shown a white blood cell, 7.7, hemoglobin is 10.4, electrolytes are within normal limits, renal profile fairly stable, would be on a 54 creatinine 1.64. Blood cultures have shown no growth. No altered mentation, no worsening dyspnea. Objective - Vital Signs Vital signs: Vital Signs Temp 97.6 F 10/10/19 07:00 Pulse 82 10/10/19 07:00 Resp 16 10/10/19 07:00 BP 111/64 10/10/19 07:00 Pulse Ox 96 10/10/19 07:00 Intake & Output 10/09/19 10/10/19 10/10/19 18:59 06:59 18:59 Intake Total 400 Balance 400 Intake: Intake, IV Titration 100 Amount Piperacillin-Tazobactam 3 100 .375 gm In Sodium Chloride 0.9% 100 ml @ 25 mls/hr IVPB Q8HR [facility] Rx# :[id number] Oral 300 Other: Voiding Method Toilet Toilet Toilet # Voids 2 2 - Exam GENERAL EXAM: Alert, very pleasant, 74-year-old frail looking white female, on room air with a pulse ox of 96% comfortable in no apparent distress. HEAD: Normocephalic/atraumatic. EYES: Normal reaction of pupils, equal size. Conjunctiva pink, sclera white. NOSE: Clear with pink turbinates. THROAT: No erythema or exudates. NECK: No masses, no JVD, no thyroid enlargement, no adenopathy. CHEST: No chest wall deformity. Symmetrical expansion. LUNGS: Equal air entry with diminished breath sounds at the bases, and some scattered rhonchi CVS: Regular rate and rhythm, normal S1 and S2, no gallops, no murmurs, no rubs ABDOMEN: Soft, nontender. No hepatosplenomegaly, normal bowel sounds, no guarding or rigidity. EXTREMITIES: No clubbing, no edema, no cyanosis, 2+ pulses and upper and lower extremities. MUSCULOSKELETAL: Muscle strength and tone normal. SPINE: No scoliosis or deformity SKIN: No rashes CENTRAL NERVOUS SYSTEM: Alert and oriented -3. No focal deficits, tone is normal in all 4 extremities. PSYCHIATRIC: Alert and oriented -3. Appropriate affect. Intact judgment and insight. - Labs CBC & Chem 7: 10/10/19 08:33 10/10/19 08:33 Labs: Abnormal Lab Results - Last 24 Hours (Table) 10/10/19 10/10/19 Range/Units 08:33 08:33 RBC 3.66 L (3.80-5.40) m/uL Hgb 10.4 L (11.4-16.0) gm/dL MCHC 29.4 L (31.0-37.0) g/dL RDW 17.8 H (11.5-15.5) % BUN 54 H (7-17) mg/dL Creatinine 1.64 H (0.52-1.04) mg/dL AST 73 H (14-36) U/L ALT 49 H (4-34) U/L Alkaline Phosphatase 151 H (38-126) U/L Total Protein 5.5 L (6.3-8.2) g/dL Albumin 3.1 L (3.5-5.0) g/dL Microbiology - Last 24 Hours (Table) 10/05/19 18:54 Blood Culture - Preliminary Blood No Growth after 96 hours Assessment and Plan Plan: Assessment: 1 Acute community-acquired right upper lobe pneumonia, did a CT of the chest without contrast showed large consolidation in posterior right upper lobe lung base, suspect aspiration related pneumonia 2 History of chronic bronchial asthma currently stable 3 Recent fall with hip fracture 4 Chronic kidney disease 5 History of DVT 6 GERD 7 Degenerative joint disease 8 History of migraine cephalgia 9 History of pancreatitis 10 History of constipation 11 History of TIA 12 History of spinal stenosis 13 History of anxiety/depression/panic disorder 14 Protein calorie malnutrition 15 Poor overall functional performance based and the above-mentioned multiple c omorbidities. Plan: Continue current medical treatment, CT of the chest has been obtained and revi ewed with Dr. Womack, showing large consolidation in the posterior right upper lobe base with additional smaller nodules within the lower lung calixto bilaterally, that will be followed. Suspect aspiration related pneumonia in the right lung. May consider bronchoscopy at a later date, but patient is debilitated. Clinically she is improving, no fever or chills, continue current antibiotic coverage. Obtain swallow evaluation I performed a history & physical examination of the patient and discussed their management with my nurse practitioner, Brittany Garcia. I reviewed the nurse practitioner's note and agree with the documented findings and plan of care. Lung sounds are positive for diffuse rhonchi. The findings and the impression was discussed with the patient. I attest to the documentation by the nurse practitioner. Time with Patient: Less than 30
--- NOTE | 2019-10-10 19:46 | P.PN ---
Subjective Progress Note Date: 10/10/19 Louise dennis is a 74-year-old female who presented to [facility] emergency room with a chief complaint of headache and neck pain she was evaluated in emergency room, computed tomography scan of the brain and cervical spine did not reveal any significant abnormality, chest x-ray was positive for right upper lobe infiltrate, she was started on IV antibiotics and was admitted to medical floor, pulmonary consultation was requested. Patient denies any fever or chills she has occasional cough, she has shortness of breath, but this is a long-term complaint for her that is not changed from her baseline. Patient stated that she has history of asthma. She denies ever smoking. She stated that she has been losing weight recently. On 10/07/2019 patient was seen and examined on the medical floor there is no fever or chills no dizziness no chest pain no shortness of breath she has occas ional cough no nausea or vomiting no abdominal pain no diarrhea no burning was urination no frequency or urgency and no hematuria, she is still complaining of headache and neck pain On 10/08/2019 patient was seen and examined on the medical floor, she is alert and oriented 3 in no apparent distress, she is complaining of neck pain, she has occasional cough without sputum production, otherwise she denies any complaints, there is no fever or chills no headache or dizziness no chest pain no shortness of breath no nausea or vomiting no abdominal pain no diarrhea no burning was urination no frequency or urgency no hematuria chest x-ray revealing worsening right upper lobe infiltrate On 10/09/2019 patient was seen and examined on the medical floor she is alert and oriented 3 she is complaining of severe pain in her neck, actually she is crying was pain at this time, she has fentanyl patch 100 g every 72 hours she had a new patch put on today, she also has [place], Fioricet, and Imitrex ordered for headache, there is a consult for anesthesia for possible injection in the neck, hopefully she will be seen by them tomorrow. At this time patient is requesting something more for pain Will order Dilaudid 0.5 mg when necessary. Otherwise she denies any complaints there is no fever or chills no headache or dizziness no chest pain no shortness of breath no cough no nausea or vomiting no abdominal pain no diarrhea no burning was urination no frequency or urgency no hematuria. On 10/10/2019 patient was seen and examined on the medical floor she is alert and oriented 3 in no apparent distress she is still complaining of neck pain otherwise she denies any complaints there is no fever or chills no headache or dizziness no chest pain no shortness of breath no cough no nausea or vomiting no abdominal pain no diarrhea no burning with urination no frequency or urgency and no hematuria chest x-rays revealing worsening infiltrate liver enzymes are elevated with check liver ultrasound awaiting further input from pulmonary awaiting intervention by anesthesia for neck pain Objective - Vital Signs Vital signs: Vital Signs Temp 97.6 F 10/10/19 07:00 Pulse 82 10/10/19 07:00 Resp 16 10/10/19 07:00 BP 111/64 10/10/19 07:00 Pulse Ox 96 10/10/19 07:00 Intake & Output 10/09/19 10/10/19 10/10/19 18:59 06:59 18:59 Intake Total 400 Balance 400 Intake: Intake, IV Titration 100 Amount Piperacillin-Tazobactam 3 100 .375 gm In Sodium Chloride 0.9% 100 ml @ 25 mls/hr IVPB Q8HR [facility] Rx# :[id number] Oral 300 Other: Voiding Method Toilet Toilet # Voids 2 2 - Exam In general patient is alert and oriented 3 in no apparent distress HEENT head normocephalic and atraumatic Neck is supple no JVD no goiter no lymphadenopathy no meningeal signs Chest exam reveals a few scattered rhonchi bilaterally no wheezing Cardiac exam reveals regular heart sounds S1 and S2 no gallops no murmurs Abdomen is soft nontender no organomegaly with normal bowel sounds Extremity exam reveals no edema no cyanosis or clubbing Neurological examination reveals no gross focal deficits - Labs CBC & Chem 7: 10/10/19 08:33 10/10/19 08:33 Labs: Microbiology - Last 24 Hours (Table) 10/05/19 18:54 Blood Culture - Preliminary Blood No Growth after 96 hours Assessment and Plan Plan: 1. Right upper lobe infiltrate suggestive of pneumonia, with worsening x-ray, infectious disease consultation requested 2. Headache and neck pain, cause is unclear could be related to degenerative disc disease, computed tomography scan of the head and cervical spine nonrevealing, neurology consultation is requested, neurology are recommending occipital block Will consult anesthesia 3. Underlying history of chronic kidney disease, monitoring kidney function closely 4. Recent history of fall with hip fracture requiring surgery 5. Remote history of TIA 6. History of migraine headache 7. History of weight loss maintained on Marinol 8. Chronic back pain maintained on fentanyl patch 9. Underlying history of depression with anxiety disorder 10. For DVT prophylaxis we will use subcu Lovenox At this time patient is admitted to medical floor she was started on IV antibiotic pulmonary consultation was requested regarding right upper lobe infiltrate Neurology consultation was requested in regard to headache and neck pain Will follow closely
[2019-10-10] MEDS: LORATADINE 10 MG TAB PO SCH (20:12)
--- NOTE | 2019-10-10 20:34 | PN ---
PROGRESS NOTE DATE OF SERVICE: 10/10/2019 REASON FOR FOLLOWUP: Possible aspiration pneumonia. INTERVAL HISTORY: The patient is currently afebrile. He is still complaining of pain to the neck area. Some nausea but no vomiting. The patient denies having any chest pain. No abdominal pain and no diarrhea. PHYSICAL EXAMINATION: Blood pressure 111/64 with a pulse of 82, temperature 97.6. She is 96% on room air. General description is an elderly female up in the bed in no distress. RESPIRATORY SYSTEM: Unlabored breathing. Clear to auscultation anteriorly. HEART: S1, S2. Regular rate and rhythm. ABDOMEN: Soft. No tenderness. LABS: Hemoglobin is , white count 7.7, BUN of 54, creatinine 1.64. CT of the chest with right upper lobe pneumonia. DIAGNOSTIC IMPRESSION AND PLAN: Patient with right upper lobe pneumonia, possible aspiration etiology. The patient is currently covered with Zosyn; to continue. Try to obtain a sputum sample. Continue with supportive care. MMODL / IJN: [id number] /
[2019-10-11] MEDS: BUTALB/APAP/CAFF 50-325-40MG TAB PO PRN ×4 (02:11→22:28)
[2019-10-11] MEDS: HYDROmorphone 0.5 MG/0.5 ML SYRINGE IVP PRN ×7 (03:35→23:27)
[2019-10-11] MEDS: LEVOTHYROXINE 88 MCG TAB PO SCH (05:20)
--- NOTE | 2019-10-11 08:59 | US ---
EXAMINATION TYPE: US liver DATE OF EXAM: 10/11/2019 COMPARISON: CT 2013 CLINICAL HISTORY: elevated liver enzymes. EXAM MEASUREMENTS: Liver Length: 15.8 cm Gallbladder Wall: 0.3 cm CBD: 0.6 cm Right Kidney: 7.6 x 4.3 x 3.7 cm Pancreas: prominent duct at 0.3 cm Liver: Increased echo pattern Gallbladder: No stones seen Evidence for sonographic Almaguer's sign: No CBD: wnl Right Kidney: imaged posteriorly, appears echogenic IMPRESSION: 1. Nonspecific finding of a prominent pancreatic duct. This could be evaluated with CT scan. 2. Slightly increased pattern to the liver can be associated with hepatic steatosis or hepatocellular disease. Correlate clinically. 3. Renal cortex is somewhat echogenic which can be associated with chronic medical renal disease. Cor relate clinically.
[2019-10-11] MEDS: PANTOPRAZOLE 40 MG TABLET PO SCH (09:14)
[2019-10-11] MEDS: DULoxetine HCL 60 MG CAPSULE.DR PO SCH (09:14)
[2019-10-11] MEDS: POTASSIUM CHLORIDE ER 10 MEQ TAB.ER.PRT PO SCH (09:14)
[2019-10-11] MEDS: busPIRone HCl 10 MG TAB PO SCH ×2 (09:14→20:35)
[2019-10-11] MEDS: DRONABINOL 2.5 MG CAP PO SCH ×4 (09:14→20:36)
[2019-10-11] MEDS: buPROPion XL 300 MG TAB.ER.24H PO SCH (09:14)
[2019-10-11] MEDS: FUROSEMIDE 20 MG TAB PO SCH (09:14)
[2019-10-11] MEDS: FERROUS SULFATE 325 MG TAB PO SCH (09:14)
[2019-10-11] MEDS: CHOLESTYRAMINE (WITH SUGAR) 4 GM PACKET PO SCH ×2 (09:15→20:27)
[2019-10-11] MEDS: PIPERACILLIN-TAZOBACTAM 3.375 GM in SODIUM CHLORIDE 0.9% 100 ML IVPB SCH ×2 (09:15→20:37)
--- NOTE | 2019-10-11 10:18 | P.PN ---
Subjective Patient is seen in follow-up for chronic kidney disease. Complaining of neck and head pain. She is requesting a block. No chest pain or shortness of breath. No vomiting or diarrhea. No edema. Vital signs are stable. General: The patient appeared well nourished and normally developed. HEENT: Head exam is unremarkable. Neck is without jugular venous distension. LUNGS: Lungs are clear to auscultation and percussion. Breath sounds decreased. HEART: Rate and Rhythm are regular. ABDOMEN: Soft, nontender. EXTREMITITES: No clubbing, cyanosis, or edema. Objective - Vital Signs Vital signs: Vital Signs Temp 97.8 F 10/11/19 07:00 Pulse 81 10/11/19 07:00 Resp 16 10/11/19 07:00 BP 134/77 10/11/19 07:00 Pulse Ox 97 10/11/19 07:00 Intake & Output 10/10/19 10/11/19 10/11/19 18:59 06:59 18:59 Intake Total 1080 400 Balance 1080 400 Weight 38.102 kg Intake: Intake, IV Titration 100 Amount Piperacillin-Tazobactam 3 100 .375 gm In Sodium Chloride 0.9% 100 ml @ 25 mls/hr IVPB Q12HR [facility] Rx #:[id number] Oral 1080 300 Other: Voiding Method Toilet Toilet Toilet # Voids 3 2 - Labs CBC & Chem 7: 10/10/19 08:33 10/10/19 08:33 Labs: Abnormal Lab Results - Last 24 Hours (Table) 10/10/19 10/10/19 Range/Units 08:33 08:33 RBC 3.66 L (3.80-5.40) m/uL Hgb 10.4 L (11.4-16.0) gm/dL MCHC 29.4 L (31.0-37.0) g/dL RDW 17.8 H (11.5-15.5) % BUN 54 H (7-17) mg/dL Creatinine 1.64 H (0.52-1.04) mg/dL AST 73 H (14-36) U/L ALT 49 H (4-34) U/L Alkaline Phosphatase 151 H (38-126) U/L Total Protein 5.5 L (6.3-8.2) g/dL Albumin 3.1 L (3.5-5.0) g/dL Microbiology - Last 24 Hours (Table) 10/05/19 18:54 Blood Culture - Preliminary Blood No Growth after 120 hours Assessment and Plan Plan: Assessment: 1. Chronic kidney disease stage IIIB/4 with baseline creatinine in the range of 1.5-2.5. GFR currently at baseline. Etiology is nephrosclerosis and right renal atrophy. 2. Right upper lobe pneumonia maintained on antibiotics. 3. Chronic kidney disease mineral bone disease maintained on calcitriol. 4. Left femoral neck fracture status post hemiarthroplasty in May 2019. 5. Chronic lower extremity edema. Stable. Plan: Maintain Lasix 20 mg once daily. Continue to monitor renal function and urine output. Morning labs pending.
[2019-10-11 10:19] LABS: Magnesium 2.1 mg/dL (1.6-2.3)
--- NOTE | 2019-10-11 11:36 | P.PN ---
Subjective Progress Note Date: 10/11/19 Principal diagnosis: Right upper lobe community-acquired pneumonia The patient is seen today 10/07/2019 in follow-up on the regular medical floor. She is currently awake and alert in no acute distress. Resting comfortably in bed. Still having some head and neck pain. Still some shortness of breath with exertion. Loose nonproductive cough. Blood cultures reveal no growth. White count 10.1. Hemoglobin 10.1. Sodium 136. Potassium 4.9. Creatinine 1.92. She is maintained on ceftriaxone and azithromycin along with bronchodilators. The patient is seen today 10/09/2019 in follow-up on the regular medical floor. She is currently awake and alert in no acute distress. She continues have ongoing complaints of neck pain. Denies any worsening shortness of breath, cou gh or congestion. She's been maintaining O2 saturations in the 90s on room air. Afebrile. Hemodynamically stable. Blood culture reveals no growth. White count 9.0. Hemoglobin 11.7. Sodium 137. Potassium 4.3. Creatinine 1.66. On 10/10/2019 patient seen in follow-up on the general medical floor. She is resting comfortably in bed, room air pulse ox is 96%, she is afebrile, hemodynamically stable. She remains on Zosyn, her chest x-ray this morning showed some improvement in the appearance of right upper lobe pneumonia. Today's labs have shown a white blood cell, 7.7, hemoglobin is 10.4, electrolytes are within normal limits, renal profile fairly stable, would be on a 54 creatinine 1.64. Blood cultures have shown no growth. No altered mentation, no worsening dyspnea. On 10/11/2019 patient seen in follow-up on a general medical floor. Remains on Zosyn, but clinically stable, room air pulse ox 97%, hemodynamically patient is stable, she is afebrile. Blood cultures have shown no growth. Today's labs have been reviewed, electrolytes are within normal limits, renal profile s lightly improved. Objective - Vital Signs Vital signs: Vital Signs Temp 97.8 F 10/11/19 07:00 Pulse 81 10/11/19 07:00 Resp 16 10/11/19 07:00 BP 134/77 10/11/19 07:00 Pulse Ox 97 10/11/19 07:00 Intake & Output 10/10/19 10/11/19 10/11/19 18:59 06:59 18:59 Intake Total 1080 400 Balance 1080 400 Weight 38.102 kg Intake: Intake, IV Titration 100 Amount Piperacillin-Tazobactam 3 100 .375 gm In Sodium Chloride 0.9% 100 ml @ 25 mls/hr IVPB Q12HR [facility] Rx #:[id number] Oral 1080 300 Other: Voiding Method Toilet Toilet Toilet # Voids 3 2 - Exam GENERAL EXAM: Alert, very pleasant, 74-year-old frail looking white female, on room air with a pulse ox of 97% comfortable in no apparent distress. HEAD: Normocephalic/atraumatic. EYES: Normal reaction of pupils, equal size. Conjunctiva pink, sclera white. NOSE: Clear with pink turbinates. THROAT: No erythema or exudates. NECK: No masses, no JVD, no thyroid enlargement, no adenopathy. CHEST: No chest wall deformity. Symmetrical expansion. LUNGS: Equal air entry with diminished breath sounds at the bases, and some scattered rhonchi CVS: Regular rate and rhythm, normal S1 and S2, no gallops, no murmurs, no rubs ABDOMEN: Soft, nontender. No hepatosplenomegaly, normal bowel sounds, no guarding or rigidity. EXTREMITIES: No clubbing, no edema, no cyanosis, 2+ pulses and upper and lower extremities. MUSCULOSKELETAL: Muscle strength and tone normal. SPINE: No scoliosis or deformity SKIN: No rashes CENTRAL NERVOUS SYSTEM: Alert and oriented -3. No focal deficits, tone is normal in all 4 extremities. PSYCHIATRIC: Alert and oriented -3. Appropriate affect. Intact judgment and insight. - Labs CBC & Chem 7: 10/10/19 08:33 10/11/19 09:40 Labs: Abnormal Lab Results - Last 24 Hours (Table) 10/11/19 Range/Units 09:40 BUN 49 H (7-17) mg/dL Creatinine 1.56 H (0.52-1.04) mg/dL Glucose 100 H (74-99) mg/dL Microbiology - Last 24 Hours (Table) 10/05/19 18:54 Blood Culture - Preliminary Blood No Growth after 120 hours Assessment and Plan Plan: Assessment: 1 Acute community-acquired right upper lobe pneumonia, did a CT of the chest without contrast showed large consolidation in posterior right upper lobe lung base, suspect aspiration related pneumonia 2 History of chronic bronchial asthma currently stable 3 Recent fall with hip fracture 4 Chronic kidney disease 5 History of DVT 6 GERD 7 Degenerative joint disease 8 History of migraine cephalgia 9 History of pancreatitis 10 History of constipation 11 History of TIA 12 History of spinal stenosis 13 History of anxiety/depression/panic disorder 14 Protein calorie malnutrition 15 Poor overall functional performance based and the above-mentioned multiple comorbidities. Plan: Clinically patient remains stable, she is on room air, she is afebrile, remains on Zosyn, no acute events overnight, no comments of chest pain or hemoptysis. Continue current antibiotic coverage. Continue GI and DVT prophylaxis. Patient is complaining of neck pain, anesthesia has been consulted for possibility of a nerve block. I performed a history & physical examination of the patient and discussed their management with my nurse practitioner, Brittany Garcia. I reviewed the nurse practitioner's note and agree with the documented findings and plan of care. Lung sounds are positive for diffuse rhonchi. The findings and the impression was discussed with the patient. I attest to the documentation by the nurse practitioner. Time with Patient: Less than 30
--- NOTE | 2019-10-11 12:53 | CDI ---
Documentation Clarification Form Date: 10/11/2019 12:13:57 PM From: Zakiya Rivera RN, CCDS Admit Date: 10/05/2019 06:48:00 PM Patient Name: Louise Sutton Visit Number: [id number] Discharge Date: ATTENTION: The Clinical Documentation Specialists (CDI) and [facility] Coding Staff appreciate your assistance in clarifying documentation. Please respond to the clarification below the line at the bottom and electronically sign. The CDI & [facility] Coding staff will review the response and follow-up if needed. Please note: Queries are made part of the Legal Health Record. If you have any questions, please contact the author of this message via ITS. Dr. Palmer Desir 10/04 H/P and subsequent documentation has right upper lobe infiltrate suggestive of pneumonia. Request further specificity for the type of pneumonia you are treating if known. History/Risk Factors: Asthma, Migraine Headaches Clinical Indicators: 74-year-old female who present on 10/04 with complaints of throbbing headache left ear discomfort and sinus congestion. Chest x-ray in ED 10/04, shows evidence of a developing right upper lobe pneumonia. She has reported some occasional cough and upper respiratory congestion. 10/05 pulmonary assessment of lungs: Lungs reveal some expiratory wheezes. A few scattered rhonchi. Breath sounds equal bilaterally. 10/04 Vital signs: 136/83 124 20 98.0 96 % RA 10/04 WBC/Left shift: 10.2, BUN 47, CR 1.89 10/04 Serology: Coronavirus (PCR) Not Detected 10/09 CT chest large consolidation posterior right upper lobe lung base. 10/07 ID (Dr. Gregorio): Chest worsening right upper lobe pneumonia on chest x-ray, worsening of her pain and vomiting with a question of possible aspiration pneumonitis failing Rocephin and Zithromax therapy. Aspiration pneumonia 10/09 Pulmonary (Dr. Womack) Acute community-acquired right upper lobe pneumonia, did a CT of the chest without contrast showed large consolidation in posterior right upper lobe lung base, suspect aspiration related pneumonia. Treatment: .9 NS 1,000 mls bolus Rocephin 1 gm iv daily 10/04-10/05 now DC Zithromax 500mg iv once then 500 mg po daily Zosyn 3.375 gm iv q 8 hr 10/07 change to q 12 hrs 10/09 Breathing Tx: Ventolin Nebulized 2.5 mg q 6 hrs prn shortness of breath Obtain sputum for Gram stain and culture In order to capture the severity of condition, please clarify if the condition signifies and you are treating for: Aspiration Pneumonia, identify if: Due to solids or liquids Bacterial Pneumonia, suspect gram negative Community acquired pneumonia, unspecified Other, please specify Unable to determine (Last Revision: July 2017) Unable to determine MTDD
[2019-10-11] MEDS: FOLIC ACID 1 MG TAB PO SCH (14:04)
[2019-10-11] MEDS: THIAMINE 100 MG TAB PO SCH (14:04)
[2019-10-11] MEDS ORDERED: IV FLUID CONTINUATION 600 ML IV ONE (15:03)
[2019-10-11] MEDS ORDERED: fentaNYL (PF) 50 MCG/ML 2 ML AMP IVP ONE (15:12)
--- NOTE | 2019-10-11 15:23 | P.PCN ---
Date of Procedure: 10/11/19 Procedure(s) Performed: Preoperative diagnoses= 1- bilateral Greater occipital neuralgia Postoperative diagnoses= same as preoperative diagnosis. Procedure= Bilateral Greater occipital nerve block Anesthesia= moderate sedation with fentanyl 50 micrograms and local infiltration with lidocaine 1% 4 ml Estimated blood loss=minimal. Procedure indication= the patient had a history of severe chronic neck pain ,and headache, diagnosed with occipital neuralgia exam was positive for severe tenderness over the occipital nerve bilaterally, she will be a good candidate occipital nerve block, patient failed conservative management Procedure description= the patient was seen and identified in the preoperative holding area, risks and benefits and alternative of the procedure and possible complications discussed with the patient, and he agreed with the preceding, patient signed the consent, an IV was started, and vital signs were monitored and were stable throughout the procedure, patient was placed in the sitting position or table and the neck area was prepped and draped with a sterile fashion, vital signs were closely monitored during the procedure, 25-gauge needle advanced 1 inch lateral to the occipital protuberance on the right side, at the location of the right occipital nerve , then after negative aspiration for heme and CSF and there was no paresthesia during the injection, 6 ml of Robivacaine 0.5% and 20 mg of Kenalog injected after negative aspiration, the needle removed, and the entire same procedure was repeated for the left Greater occipital nerve. Patient tolerated the procedure well without any complication, The patient returned to supine position after the back was cleaned and a Band- Aid applied, the patient transported to recovery room in stable condition and he was monitored for 30 minutes before he was discharged home and then patient was reexamined before going home and patient was discharged in stable condition and patient will follow up with the pain clinic in a few weeks.
[2019-10-11] MEDS: ENOXAPARIN 30 MG/0.3 ML SYRINGE SQ SCH (16:34)
--- NOTE | 2019-10-11 17:50 | P.PN ---
Subjective Progress Note Date: 10/11/19 Louise dennis is a 74-year-old female who presented to [facility] emergency room with a chief complaint of headache and neck pain she was evaluated in emergency room, computed tomography scan of the brain and cervical spine did not reveal any significant abnormality, chest x-ray was positive for right upper lobe infiltrate, she was started on IV antibiotics and was admitted to medical floor, pulmonary consultation was requested. Patient denies any fever or chills she has occasional cough, she has shortness of breath, but this is a long-term complaint for her that is not changed from her baseline. Patient stated that she has history of asthma. She denies ever smoking. She stated that she has been losing weight recently. On 10/07/2019 patient was seen and examined on the medical floor there is no fever or chills no dizziness no chest pain no shortness of breath she has occas ional cough no nausea or vomiting no abdominal pain no diarrhea no burning was urination no frequency or urgency and no hematuria, she is still complaining of headache and neck pain On 10/08/2019 patient was seen and examined on the medical floor, she is alert and oriented 3 in no apparent distress, she is complaining of neck pain, she has occasional cough without sputum production, otherwise she denies any complaints, there is no fever or chills no headache or dizziness no chest pain no shortness of breath no nausea or vomiting no abdominal pain no diarrhea no burning was urination no frequency or urgency no hematuria chest x-ray revealing worsening right upper lobe infiltrate On 10/09/2019 patient was seen and examined on the medical floor she is alert and oriented 3 she is complaining of severe pain in her neck, actually she is crying was pain at this time, she has fentanyl patch 100 g every 72 hours she had a new patch put on today, she also has [place], Fioricet, and Imitrex ordered for headache, there is a consult for anesthesia for possible injection in the neck, hopefully she will be seen by them tomorrow. At this time patient is requesting something more for pain Will order Dilaudid 0.5 mg when necessary. Otherwise she denies any complaints there is no fever or chills no headache or dizziness no chest pain no shortness of breath no cough no nausea or vomiting no abdominal pain no diarrhea no burning was urination no frequency or urgency no hematuria. On 10/10/2019 patient was seen and examined on the medical floor she is alert and oriented 3 in no apparent distress she is still complaining of neck pain otherwise she denies any complaints there is no fever or chills no headache or dizziness no chest pain no shortness of breath no cough no nausea or vomiting no abdominal pain no diarrhea no burning with urination no frequency or urgency and no hematuria chest x-rays revealing worsening infiltrate liver enzymes are elevated with check liver ultrasound awaiting further input from pulmonary awaiting intervention by anesthesia for neck pain On 10/11/2019 patient was seen and examined on the medical floor she is alert and oriented 3 in no apparent distress there is no fever or chills no headache or dizziness no chest pain no shortness of breath no cough no nausea or vomiting no abdominal pain no diarrhea no burning was urination no frequency or urgency and no hematoma. Main complaints for patient is neck pain she is scheduled for epidural injection today Objective - Vital Signs Vital signs: Vital Signs Temp 98.9 F 10/11/19 15:03 Pulse 88 10/11/19 15:30 Resp 16 10/11/19 15:30 BP 106/84 10/11/19 15:30 Pulse Ox 100 10/11/19 15:30 Intake & Output 10/10/19 10/11/19 10/11/19 18:59 06:59 18:59 Intake Total 1080 400 540 Balance 1080 400 540 Weight 38.102 kg 38.102 kg Intake: Intake, IV Titration 100 Amount Piperacillin-Tazobactam 3 100 .375 gm In Sodium Chloride 0.9% 100 ml @ 25 mls/hr IVPB Q12HR [facility] Rx #:[id number] Oral 1080 300 540 Other: Voiding Method Toilet Toilet Toilet # Voids 3 2 3 - Exam In general patient is alert and oriented 3 in no apparent distress HEENT head normocephalic and atraumatic Neck is supple no JVD no goiter no lymphadenopathy no meningeal signs Chest exam reveals a few scattered rhonchi bilaterally no wheezing Cardiac exam reveals regular heart sounds S1 and S2 no gallops no murmurs Abdomen is soft nontender no organomegaly with normal bowel sounds Extremity exam reveals no edema no cyanosis or clubbing Neurological examination reveals no gross focal deficits - Labs CBC & Chem 7: 10/10/19 08:33 06/23/20 09:40 Labs: Abnormal Lab Results - Last 24 Hours (Table) 10/11/19 Range/Units 09:40 BUN 49 H (7-17) mg/dL Creatinine 1.56 H (0.52-1.04) mg/dL Glucose 100 H (74-99) mg/dL Microbiology - Last 24 Hours (Table) 10/05/19 18:54 Blood Culture - Preliminary Blood No Growth after 120 hours Assessment and Plan Plan: 1. Right upper lobe infiltrate suggestive of pneumonia, with worsening x-ray, infectious disease consultation requested 2. Headache and neck pain, cause is unclear could be related to degenerative d isc disease, computed tomography scan of the head and cervical spine nonrevealing, neurology consultation is requested, neurology are recommending occipital block Will consult anesthesia 3. Underlying history of chronic kidney disease, monitoring kidney function closely 4. Recent history of fall with hip fracture requiring surgery 5. Remote history of TIA 6. History of migraine headache 7. History of weight loss maintained on Marinol 8. Chronic back pain maintained on fentanyl patch 9. Underlying history of depression with anxiety disorder 10. For DVT prophylaxis we will use subcu Lovenox At this time patient is admitted to medical floor she was started on IV antibiotic pulmonary consultation was requested regarding right upper lobe infiltrate Neurology consultation was requested in regard to headache and neck pain Will follow closely
[2019-10-11] MEDS: LORATADINE 10 MG TAB PO SCH (20:35)
[2019-10-11] MEDS: MIRTAZAPINE 15 MG TAB PO SCH (20:36)
[2019-10-12] MEDS: LEVOTHYROXINE 88 MCG TAB PO SCH (05:53)
[2019-10-12] MEDS: HYDROmorphone 0.5 MG/0.5 ML SYRINGE IVP PRN ×6 (05:54→22:03)
[2019-10-12] MEDS: buPROPion XL 300 MG TAB.ER.24H PO SCH (08:14)
[2019-10-12] MEDS: FUROSEMIDE 20 MG TAB PO SCH (08:14)
[2019-10-12] MEDS: busPIRone HCl 10 MG TAB PO SCH ×2 (08:14→22:01)
[2019-10-12] MEDS: FERROUS SULFATE 325 MG TAB PO SCH (08:14)
[2019-10-12] MEDS: POTASSIUM CHLORIDE ER 10 MEQ TAB.ER.PRT PO SCH (08:14)
[2019-10-12] MEDS: PANTOPRAZOLE 40 MG TABLET PO SCH (08:15)
[2019-10-12] MEDS: DRONABINOL 2.5 MG CAP PO SCH ×4 (08:15→22:01)
[2019-10-12] MEDS: METOLAZONE 2.5 MG TAB PO SCH (08:15)
[2019-10-12] MEDS: CALCITRIOL 0.25 MCG CAP PO SCH (08:15)
[2019-10-12] MEDS: DULoxetine HCL 60 MG CAPSULE.DR PO SCH (08:15)
[2019-10-12] MEDS: CHOLESTYRAMINE (WITH SUGAR) 4 GM PACKET PO SCH ×2 (08:16→22:01)
[2019-10-12] MEDS: ENOXAPARIN 30 MG/0.3 ML SYRINGE SQ SCH (08:20)
[2019-10-12] MEDS: PIPERACILLIN-TAZOBACTAM 3.375 GM in SODIUM CHLORIDE 0.9% 100 ML IVPB SCH ×2 (08:20→22:02)
[2019-10-12] MEDS: BUTALB/APAP/CAFF 50-325-40MG TAB PO PRN ×3 (08:26→23:03)
[2019-10-12 08:43] LABS: Calcium 8.6 mg/dL (8.4-10.2); Magnesium 2.1 mg/dL (1.6-2.3); Potassium 3.8 mmol/L (3.5-5.1)
[2019-10-12] MEDS: FOLIC ACID 1 MG TAB PO SCH (11:57)
[2019-10-12] MEDS: THIAMINE 100 MG TAB PO SCH (11:57)
--- NOTE | 2019-10-12 12:03 | P.PN ---
Subjective Progress Note Date: 10/12/19 Principal diagnosis: Right upper lobe community-acquired pneumonia The patient is seen today 10/07/2019 in follow-up on the regular medical floor. She is currently awake and alert in no acute distress. Resting comfortably in bed. Still having some head and neck pain. Still some shortness of breath with exertion. Loose nonproductive cough. Blood cultures reveal no growth. White count 10.1. Hemoglobin 10.1. Sodium 136. Potassium 4.9. Creatinine 1.92. She is maintained on ceftriaxone and azithromycin along with bronchodilators. The patient is seen today 10/09/2019 in follow-up on the regular medical floor. She is currently awake and alert in no acute distress. She continues have ongoing complaints of neck pain. Denies any worsening shortness of breath, cou gh or congestion. She's been maintaining O2 saturations in the 90s on room air. Afebrile. Hemodynamically stable. Blood culture reveals no growth. White count 9.0. Hemoglobin 11.7. Sodium 137. Potassium 4.3. Creatinine 1.66. On 10/10/2019 patient seen in follow-up on the general medical floor. She is resting comfortably in bed, room air pulse ox is 96%, she is afebrile, hemodynamically stable. She remains on Zosyn, her chest x-ray this morning showed some improvement in the appearance of right upper lobe pneumonia. Today's labs have shown a white blood cell, 7.7, hemoglobin is 10.4, electrolytes are within normal limits, renal profile fairly stable, would be on a 54 creatinine 1.64. Blood cultures have shown no growth. No altered mentation, no worsening dyspnea. On 10/11/2019 patient seen in follow-up on a general medical floor. Remains on Zosyn, but clinically stable, room air pulse ox 97%, hemodynamically patient is stable, she is afebrile. Blood cultures have shown no growth. Today's labs have been reviewed, electrolytes are within normal limits, renal profile s lightly improved. On 10/12/2019 patient seen in follow-up on a general medical floor, she is resti ng comfortably in bed, she states her breathing is comfortable, she is on room air. Remains on Zosyn. Blood culture is negative, occasional cough with no phlegm production, lung sounds are essentially clear, no crackles, no rhonchi or wheezing. No fever or chills. Follow-up chest x-ray is pending today, her complaint is pain on both sides with coughing, otherwise seems to pretty comfortable, neck pain is improved. No dyspnea, no altered mentation. Objective - Vital Signs Vital signs: Vital Signs Temp 97.8 F 10/12/19 07:00 Pulse 82 10/12/19 08:00 Resp 16 10/12/19 08:00 BP 131/71 10/12/19 07:00 Pulse Ox 97 10/12/19 07:00 Intake & Output 10/11/19 10/12/19 10/12/19 18:59 06:59 18:59 Intake Total 540 420 Balance 540 420 Weight 38.102 kg Intake: Oral 540 420 Other: Voiding Method Toilet Toilet Toilet # Voids 3 2 # Bowel Movements 1 - Exam GENERAL EXAM: Alert, very pleasant, 74-year-old frail looking white female, on room air with a pulse ox of 97% comfortable in no apparent distress. HEAD: Normocephalic/atraumatic. EYES: Normal reaction of pupils, equal size. Conjunctiva pink, sclera white. NOSE: Clear with pink turbinates. THROAT: No erythema or exudates. NECK: No masses, no JVD, no thyroid enlargement, no adenopathy. CHEST: No chest wall deformity. Symmetrical expansion. LUNGS: Equal air entry with diminished breath sounds at the bases, and some scattered rhonchi CVS: Regular rate and rhythm, normal S1 and S2, no gallops, no murmurs, no rubs ABDOMEN: Soft, nontender. No hepatosplenomegaly, normal bowel sounds, no guarding or rigidity. EXTREMITIES: No clubbing, no edema, no cyanosis, 2+ pulses and upper and lower extremities. MUSCULOSKELETAL: Muscle strength and tone normal. SPINE: No scoliosis or deformity SKIN: No rashes CENTRAL NERVOUS SYSTEM: Alert and oriented -3. No focal deficits, tone is normal in all 4 extremities. PSYCHIATRIC: Alert and oriented -3. Appropriate affect. Intact judgment and insight. - Labs CBC & Chem 7: 10/10/19 08:33 10/12/19 07:45 Labs: Abnormal Lab Results - Last 24 Hours (Table) 10/12/19 Range/Units 07:45 BUN 43 H (7-17) mg/dL Creatinine 1.46 H (0.52-1.04) mg/dL Glucose 101 H (74-99) mg/dL Microbiology - Last 24 Hours (Table) 10/05/19 18:54 Blood Culture - Final Blood No Growth after 144 hours Assessment and Plan Plan: Assessment: 1 Acute community-acquired right upper lobe pneumonia, did a CT of the chest without contrast showed large consolidation in posterior right upper lobe lung base, suspect aspiration related pneumonia 2 History of chronic bronchial asthma currently stable 3 Recent fall with hip fracture 4 Chronic kidney disease 5 History of DVT 6 GERD 7 Degenerative joint disease 8 History of migraine cephalgia 9 History of pancreatitis 10 History of constipation 11 History of TIA 12 History of spinal stenosis 13 History of anxiety/depression/panic disorder 14 Protein calorie malnutrition 15 Poor overall functional performance based and the above-mentioned multiple comorbidities. Plan: Continue current antibiotic coverage, we will obtain follow-up chest x-ray today, vital signs are stable, no fever or chills. Clinically stable, on room air, stable oxygenation, no altered mentation, no complaints of dyspnea. We'll review follow-up chest x-ray today. I performed a history & physical examination of the patient and discussed their management with my nurse practitioner, Brittany Garcia. I reviewed the nurse practitioner's note and agree with the documented findings and plan of care. Lung sounds are positive for diffuse rhonchi. The findings and the impression was discussed with the patient. I attest to the documentation by the nurse practitioner. Time with Patient: Less than 30
--- NOTE | 2019-10-12 13:01 | XR ---
EXAMINATION TYPE: XR chest 1V DATE OF EXAM: 10/12/2019 COMPARISON: 10/10/2019 HISTORY: Follow-up pneumonia TECHNIQUE: Single frontal view of the chest is obtained. FINDINGS: Persistent large area of consolidation right upper lobe. Underlying COPD noted. Heart size stable. Left lung is clear. No pneumothorax or pleural effusion. Postoperative changes involving the abdomen. IMPRESSION: 1. COPD with stable right upper lobe infiltrate correlate for pneumonia. 2. Rounded radiopaque density overlying the right paraspinal line is of indeterminate etiology should be correlated clinically.
--- NOTE | 2019-10-12 17:43 | P.PN ---
Subjective Progress Note Date: 10/12/19 Louise dennis is a 74-year-old female who presented to [facility] emergency room with a chief complaint of headache and neck pain she was evaluated in emergency room, computed tomography scan of the brain and cervical spine did not reveal any significant abnormality, chest x-ray was positive for right upper lobe infiltrate, she was started on IV antibiotics and was admitted to medical floor, pulmonary consultation was requested. Patient denies any fever or chills she has occasional cough, she has shortness of breath, but this is a long-term complaint for her that is not changed from her baseline. Patient stated that she has history of asthma. She denies ever smoking. She stated that she has been losing weight recently. On 10/07/2019 patient was seen and examined on the medical floor there is no fever or chills no dizziness no chest pain no shortness of breath she has occas ional cough no nausea or vomiting no abdominal pain no diarrhea no burning was urination no frequency or urgency and no hematuria, she is still complaining of headache and neck pain On 10/08/2019 patient was seen and examined on the medical floor, she is alert and oriented 3 in no apparent distress, she is complaining of neck pain, she has occasional cough without sputum production, otherwise she denies any complaints, there is no fever or chills no headache or dizziness no chest pain no shortness of breath no nausea or vomiting no abdominal pain no diarrhea no burning was urination no frequency or urgency no hematuria chest x-ray revealing worsening right upper lobe infiltrate On 10/09/2019 patient was seen and examined on the medical floor she is alert and oriented 3 she is complaining of severe pain in her neck, actually she is crying was pain at this time, she has fentanyl patch 100 g every 72 hours she had a new patch put on today, she also has [place], Fioricet, and Imitrex ordered for headache, there is a consult for anesthesia for possible injection in the neck, hopefully she will be seen by them tomorrow. At this time patient is requesting something more for pain Will order Dilaudid 0.5 mg when necessary. Otherwise she denies any complaints there is no fever or chills no headache or dizziness no chest pain no shortness of breath no cough no nausea or vomiting no abdominal pain no diarrhea no burning was urination no frequency or urgency no hematuria. On 10/10/2019 patient was seen and examined on the medical floor she is alert and oriented 3 in no apparent distress she is still complaining of neck pain otherwise she denies any complaints there is no fever or chills no headache or dizziness no chest pain no shortness of breath no cough no nausea or vomiting no abdominal pain no diarrhea no burning with urination no frequency or urgency and no hematuria chest x-rays revealing worsening infiltrate liver enzymes are elevated with check liver ultrasound awaiting further input from pulmonary awaiting intervention by anesthesia for neck pain On 10/11/2019 patient was seen and examined on the medical floor she is alert and oriented 3 in no apparent distress there is no fever or chills no headache or dizziness no chest pain no shortness of breath no cough no nausea or vomiting no abdominal pain no diarrhea no burning was urination no frequency or urgency and no hematoma. Main complaints for patient is neck pain she is scheduled for epidural injection today. On 10/12/2019 patient was seen and examined on the medical floor she is complaining of headache and neck pain otherwise she denies any complaints there is no fever or chills no headache or dizziness no chest pain no shortness of breath no cough no nausea or vomiting no abdominal pain no diarrhea no burning with urination no frequency or urgency no hematuria, patient has left upper lobe pneumonia, no significant improvement on chest x-ray pulmonary following continue with current antibiotics. Objective - Vital Signs Vital signs: Vital Signs Temp 97.8 F 10/12/19 07:00 Pulse 82 10/12/19 08:00 Resp 16 10/12/19 08:00 BP 131/71 10/12/19 07:00 Pulse Ox 97 10/12/19 07:00 Intake & Output 10/11/19 10/12/19 10/12/19 18:59 06:59 18:59 Intake Total 540 420 Balance 540 420 Weight 38.102 kg Intake: Oral 540 420 Other: Voiding Method Toilet Toilet Toilet # Voids 3 2 # Bowel Movements 1 - Exam In general patient is alert and oriented 3 in no apparent distress HEENT head normocephalic and atraumatic Neck is supple no JVD no goiter no lymphadenopathy no meningeal signs Chest exam reveals a few scattered rhonchi bilaterally no wheezing Cardiac exam reveals regular heart sounds S1 and S2 no gallops no murmurs Abdomen is soft nontender no organomegaly with normal bowel sounds Extremity exam reveals no edema no cyanosis or clubbing Neurological examination reveals no gross focal deficits - Labs CBC & Chem 7: 10/10/19 08:33 10/12/19 07:45 Labs: Abnormal Lab Results - Last 24 Hours (Table) 10/12/19 Range/Units 07:45 BUN 43 H (7-17) mg/dL Creatinine 1.46 H (0.52-1.04) mg/dL Glucose 101 H (74-99) mg/dL Microbiology - Last 24 Hours (Table) 10/05/19 18:54 Blood Culture - Final Blood No Growth after 144 hours Assessment and Plan Plan: 1. Right upper lobe infiltrate suggestive of pneumonia, with worsening x-ray, infectious disease consultation requested 2. Headache and neck pain, cause is unclear could be related to degenerative disc disease, computed tomography scan of the head and cervical spine nonrevealing, neurology consultation is requested, neurology are recommending occipital block Will consult anesthesia 3. Underlying history of chronic kidney disease, monitoring kidney function closely 4. Recent history of fall with hip fracture requiring surgery 5. Remote history of TIA 6. History of migraine headache 7. History of weight loss maintained on Marinol 8. Chronic back pain maintained on fentanyl patch 9. Underlying history of depression with anxiety disorder 10. For DVT prophylaxis we will use subcu Lovenox At this time patient is admitted to medical floor she was started on IV antibiotic pulmonary consultation was requested regarding right upper lobe infiltrate Neurology consultation was requested in regard to headache and neck pain Will follow closely
--- NOTE | 2019-10-12 18:04 | P.PN ---
Subjective Patient is seen in follow-up for chronic kidney disease. Feeling better today. Pain is better controlled. No chest pain or shortness of breath. No vomiting or diarrhea. No edema. Vital signs are stable. General: The patient appeared well nourished and normally developed. HEENT: Head exam is unremarkable. Neck is without jugular venous distension. LUNGS: Lungs are clear to auscultation and percussion. Breath sounds decreased. HEART: Rate and Rhythm are regular. ABDOMEN: Soft, nontender. EXTREMITITES: No clubbing, cyanosis, or edema. Objective - Vital Signs Vital signs: Vital Signs Temp 97.7 F 10/12/19 14:31 Pulse 94 10/12/19 16:00 Resp 17 10/12/19 16:00 BP 104/52 10/12/19 14:31 Pulse Ox 97 10/12/19 14:31 Intake & Output 10/11/19 10/12/19 10/12/19 18:59 06:59 18:59 Intake Total 540 420 Balance 540 420 Weight 38.102 kg Intake: Oral 540 420 Other: Voiding Method Toilet Toilet Toilet # Voids 3 2 4 # Bowel Movements 1 - Labs CBC & Chem 7: 10/10/19 08:33 10/12/19 07:45 Labs: Abnormal Lab Results - Last 24 Hours (Table) 10/12/19 Range/Units 07:45 BUN 43 H (7-17) mg/dL Creatinine 1.46 H (0.52-1.04) mg/dL Glucose 101 H (74-99) mg/dL Microbiology - Last 24 Hours (Table) 10/05/19 18:54 Blood Culture - Final Blood No Growth after 144 hours Assessment and Plan Plan: Assessment: 1. Chronic kidney disease stage IIIB/4 with baseline creatinine in the range of 1.5-2.5. GFR currently at baseline. Etiology is nephrosclerosis and right renal atrophy. 2. Right upper lobe pneumonia maintained on antibiotics. 3. Chronic kidney disease mineral bone disease maintained on calcitriol. 4. Left femoral neck fracture status post hemiarthroplasty in May 2019. 5. Chronic lower extremity edema. Stable. Plan: Maintain Lasix 20 mg once daily. Continue to monitor renal function and urine output. Renal function stable.
[2019-10-12] MEDS: LORATADINE 10 MG TAB PO SCH (22:01)
[2019-10-12] MEDS: MIRTAZAPINE 15 MG TAB PO SCH (22:02)
[2019-10-13] MEDS: HYDROmorphone 0.5 MG/0.5 ML SYRINGE IVP PRN ×6 (02:56→23:40)
[2019-10-13] MEDS: BUTALB/APAP/CAFF 50-325-40MG TAB PO PRN ×4 (05:00→21:42)
[2019-10-13] MEDS: LEVOTHYROXINE 88 MCG TAB PO SCH (05:00)
--- NOTE | 2019-10-13 05:50 | PN ---
PROGRESS NOTE DATE OF SERVICE: 10/12/2019. REASON FOR FOLLOWUP: Right upper lobe pneumonia. INTERVAL HISTORY: The patient is currently afebrile. The patient apparently did have a steroid injection to the trigger point injection to the neck with overall improvement in her neck pain. The patient denies having any chest pain or shortness of breath. Occasional cough. No abdominal pain or diarrhea. PHYSICAL EXAMINATION: Blood pressure 106/67 with a pulse of 89, temperature 98.7. She is 98% on room air. General description is an elderly female lying in bed in no distress. RESPIRATORY SYSTEM: Unlabored breathing, decreased intense breath sounds. No wheeze. HEART: S1, S2. Regular rate and rhythm. ABDOMEN: Soft, no tenderness. LABS: BUN of 43, creatinine 1.46. Chest x-ray this morning did not show significant change in her right upper lobe pneumonia. DIAGNOSTIC IMPRESSION AND PLAN: Patient with right upper lobe pneumonia with concern for possible aspiration etiology. Other etiology not entirely excluded. In view of no improvement and patient history may benefit from bronchoscopy so will discuss with with Pulmonary. Continue with Meryl at this point. Monitor clinical course closely. MMODL / IJN: [id number] /
[2019-10-13] MEDS: PIPERACILLIN-TAZOBACTAM 3.375 GM in SODIUM CHLORIDE 0.9% 100 ML IVPB SCH ×2 (09:03→20:24)
[2019-10-13] MEDS: DRONABINOL 2.5 MG CAP PO SCH ×4 (09:05→20:23)
[2019-10-13] MEDS: CHOLESTYRAMINE (WITH SUGAR) 4 GM PACKET PO SCH ×2 (09:05→20:25)
[2019-10-13] MEDS: POTASSIUM CHLORIDE ER 10 MEQ TAB.ER.PRT PO SCH (09:06)
[2019-10-13] MEDS: PANTOPRAZOLE 40 MG TABLET PO SCH (09:06)
[2019-10-13] MEDS: FERROUS SULFATE 325 MG TAB PO SCH (09:06)
[2019-10-13] MEDS: DULoxetine HCL 60 MG CAPSULE.DR PO SCH (09:06)
[2019-10-13] MEDS: busPIRone HCl 10 MG TAB PO SCH ×2 (09:07→20:23)
[2019-10-13] MEDS: FUROSEMIDE 20 MG TAB PO SCH (09:07)
[2019-10-13] MEDS: buPROPion XL 300 MG TAB.ER.24H PO SCH (09:07)
--- NOTE | 2019-10-13 11:24 | P.PN ---
Subjective Patient is seen in follow-up for chronic kidney disease. Pain is better controlled. No chest pain or shortness of breath. No vomiting or diarrhea. No edema. Scheduled for bronchoscopy today. Complains of generalized itching. Vital signs are stable. General: The patient appeared well nourished and normally developed. HEENT: Head exam is unremarkable. Neck is without jugular venous distension. LUNGS: Lungs are clear to auscultation and percussion. Breath sounds decreased. HEART: Rate and Rhythm are regular. ABDOMEN: Soft, nontender. EXTREMITITES: No clubbing, cyanosis, or edema. Objective - Vital Signs Vital signs: Vital Signs Temp 98.4 F 10/13/19 07:00 Pulse 79 10/13/19 07:00 Resp 16 10/13/19 07:00 BP 108/69 10/13/19 07:00 Pulse Ox 96 10/13/19 07:00 Intake & Output 10/12/19 10/13/19 10/13/19 18:59 06:59 18:59 Intake Total 220 Balance 220 Intake: Intake, IV Titration 100 Amount Piperacillin-Tazobactam 3 100 .375 gm In Sodium Chloride 0.9% 100 ml @ 25 mls/hr IVPB Q12HR [facility] Rx #:[id number] Oral 120 Other: Voiding Method Toilet Toilet # Voids 4 1 - Labs CBC & Chem 7: 10/10/19 08:33 10/12/19 07:45 Assessment and Plan Plan: Assessment: 1. Chronic kidney disease stage IIIB/4 with baseline creatinine in the range of 1.5-2.5. GFR currently at baseline. Etiology is nephrosclerosis and right renal atrophy. 2. Right upper lobe pneumonia maintained on antibiotics. Scheduled for bronchoscopy today. 3. Chronic kidney disease mineral bone disease maintained on calcitriol. 4. Left femoral neck fracture status post hemiarthroplasty in May 2019. 5. Chronic lower extremity edema. Stable. Plan: Maintain Lasix 20 mg once daily. Continue to monitor renal function and urine output. Renal function stable. Check phosphorus level.
--- NOTE | 2019-10-13 12:06 | P.PN ---
Subjective Progress Note Date: 10/13/19 Principal diagnosis: Right upper lobe community-acquired pneumonia The patient is seen today 10/07/2019 in follow-up on the regular medical floor. She is currently awake and alert in no acute distress. Resting comfortably in bed. Still having some head and neck pain. Still some shortness of breath with exertion. Loose nonproductive cough. Blood cultures reveal no growth. White count 10.1. Hemoglobin 10.1. Sodium 136. Potassium 4.9. Creatinine 1.92. She is maintained on ceftriaxone and azithromycin along with bronchodilators. The patient is seen today 10/09/2019 in follow-up on the regular medical floor. She is currently awake and alert in no acute distress. She continues have ongoing complaints of neck pain. Denies any worsening shortness of breath, cou gh or congestion. She's been maintaining O2 saturations in the 90s on room air. Afebrile. Hemodynamically stable. Blood culture reveals no growth. White count 9.0. Hemoglobin 11.7. Sodium 137. Potassium 4.3. Creatinine 1.66. On 10/10/2019 patient seen in follow-up on the general medical floor. She is resting comfortably in bed, room air pulse ox is 96%, she is afebrile, hemodynamically stable. She remains on Zosyn, her chest x-ray this morning showed some improvement in the appearance of right upper lobe pneumonia. Today's labs have shown a white blood cell, 7.7, hemoglobin is 10.4, electrolytes are within normal limits, renal profile fairly stable, would be on a 54 creatinine 1.64. Blood cultures have shown no growth. No altered mentation, no worsening dyspnea. On 10/11/2019 patient seen in follow-up on a general medical floor. Remains on Zosyn, but clinically stable, room air pulse ox 97%, hemodynamically patient is stable, she is afebrile. Blood cultures have shown no growth. Today's labs have been reviewed, electrolytes are within normal limits, renal profile s lightly improved. On 10/12/2019 patient seen in follow-up on a general medical floor, she is resti ng comfortably in bed, she states her breathing is comfortable, she is on room air. Remains on Zosyn. Blood culture is negative, occasional cough with no phlegm production, lung sounds are essentially clear, no crackles, no rhonchi or wheezing. No fever or chills. Follow-up chest x-ray is pending today, her complaint is pain on both sides with coughing, otherwise seems to pretty comfortable, neck pain is improved. No dyspnea, no altered mentation. On 10/13/2019 patient seen in follow-up on a general medical floor. She is to chest x-ray did not show much improvement in the appearance of right upper lobe infiltrate, although clinically patient remains stable, she is afebrile, she is on room air, lung sounds are clear, blood cultures have been negative, no cough or congestion, she is having some right chest discomfort with deep breathing and coughing. Today's labs have been reviewed, renal profile slightly improved. Patient has been nothing by mouth after midnight, we discussed bronchoscopy with BAL today with her and patient is agreeable to proceed Objective - Vital Signs Vital signs: Vital Signs Temp 98.4 F 10/13/19 07:00 Pulse 79 10/13/19 07:00 Resp 16 10/13/19 07:00 BP 108/69 10/13/19 07:00 Pulse Ox 96 10/13/19 07:00 Intake & Output 10/12/19 10/13/19 10/13/19 18:59 06:59 18:59 Intake Total 220 Balance 220 Intake: Intake, IV Titration 100 Amount Piperacillin-Tazobactam 3 100 .375 gm In Sodium Chloride 0.9% 100 ml @ 25 mls/hr IVPB Q12HR [facility] Rx #:[id number] Oral 120 Other: Voiding Method Toilet Toilet # Voids 4 1 - Exam GENERAL EXAM: Alert, very pleasant, 74-year-old frail looking white female, on room air with a pulse ox of 96% comfortable in no apparent distress. HEAD: Normocephalic/atraumatic. EYES: Normal reaction of pupils, equal size. Conjunctiva pink, sclera white. NOSE: Clear with pink turbinates. THROAT: No erythema or exudates. NECK: No masses, no JVD, no thyroid enlargement, no adenopathy. CHEST: No chest wall deformity. Symmetrical expansion. LUNGS: Equal air entry with diminished breath sounds at the bases, and some scattered rhonchi CVS: Regular rate and rhythm, normal S1 and S2, no gallops, no murmurs, no rubs ABDOMEN: Soft, nontender. No hepatosplenomegaly, normal bowel sounds, no guarding or rigidity. EXTREMITIES: No clubbing, no edema, no cyanosis, 2+ pulses and upper and lower extremities. MUSCULOSKELETAL: Muscle strength and tone normal. SPINE: No scoliosis or deformity SKIN: No rashes CENTRAL NERVOUS SYSTEM: Alert and oriented -3. No focal deficits, tone is normal in all 4 extremities. PSYCHIATRIC: Alert and oriented -3. Appropriate affect. Intact judgment and insight. - Labs CBC & Chem 7: 10/10/19 08:33 10/12/19 07:45 Assessment and Plan Plan: Assessment: 1 Acute community-acquired right upper lobe pneumonia, did a CT of the chest without contrast showed large consolidation in posterior right upper lobe lung base, suspect aspiration related pneumonia 2 History of chronic bronchial asthma currently stable 3 Recent fall with hip fracture 4 Chronic kidney disease 5 History of DVT 6 GERD 7 Degenerative joint disease 8 History of migraine cephalgia 9 History of pancreatitis 10 History of constipation 11 History of TIA 12 History of spinal stenosis 13 History of anxiety/depression/panic disorder 14 Protein calorie malnutrition 15 Poor overall functional performance based and the above-mentioned multiple comorbidities. Plan: Patient has been nothing by mouth after midnight, we discussed the findings of yesterday's chest x-ray and persistent right upper lobe infiltrate, we'll procee d with bronchoscopy with BAL, and patient is agreeable with the plan. Continue current medical treatment. I performed a history & physical examination of the patient and discussed their management with my nurse practitioner, Brittany Garcia. I reviewed the nurse practitioner's note and agree with the documented findings and plan of care. Lung sounds are positive for diffuse rhonchi. The findings and the impression was discussed with the patient. I attest to the documentation by the nurse pra ctitioner. Time with Patient: Less than 30
[2019-10-13] MEDS: THIAMINE 100 MG TAB PO SCH (12:28)
[2019-10-13] MEDS: FOLIC ACID 1 MG TAB PO SCH (12:28)
[2019-10-13] MEDS ORDERED: IV FLUID CONTINUATION 1,000 ML IV ONE (13:56)
[2019-10-13] MEDS ORDERED: LIDOCAINE 1% INJ 10MG/ML (20 ML MDV) ONE (13:58)
[2019-10-13] MEDS ORDERED: KETAMINE 10 MG/ML 20 ML VIAL ONE (13:58)
[2019-10-13] MEDS ORDERED: MIDAZOLAM 2 MG/2 ML VIAL ONE (13:58)
[2019-10-13] MEDS ORDERED: GLYCOPYRROLATE 0.2 MG/ML 2 ML VIAL ONE (13:58)
[2019-10-13] MEDS ORDERED: PROPOFOL 10 MG/ML 20 ML VIAL IV ONE (13:58)
[2019-10-13] MEDS ORDERED: SODIUM CHLORIDE 0.9% 500 ML IV ONE (14:11)
[2019-10-13] MEDS ORDERED: LIDOCAINE 2% INJ 20 MG/ML INTRATRACH ONE ×2 (14:11→14:14)
--- NOTE | 2019-10-13 14:23 | P.PCN ---
Date of Procedure: 10/13/19 Preoperative Diagnosis: Right upper lobe pneumonia, persistent Postoperative Diagnosis: Right upper lobe pneumonia, persistent Procedure(s) Performed: Flexible bronchoscopy and the right upper lobe bronchoalveolar lavage, posterior segment Anesthesia: MAC Surgeon: Geovanny Womack Estimated Blood Loss (ml): 0 Pathology: other Condition: stable Disposition: floor Indications for Procedure: Persistent right upper lobe pneumonia/infiltrate Operative Findings: This is a bronchoscopy was done in the endoscopy suite regarding a persistent right upper lobe pneumonia This procedure was done under conscious sedation. Anesthetic agents was being administered by anesthesia the bedside. After achieving adequate sedation, the flexible bronchoscope was inserted through right nostril was advanced upper airway. Examination posterior oropharynx, larynx and epiglottis and vocal cords was done and all of this upper airway structures were within normal limits. A total of 2 mL of 1% lidocaine was applied to the vocal cords and following that the bronchoscope was advanced with Doppler trachea. Examination tracheal bronchial tree was done. The trachea, bilateral mainstem bronchi, right upper lobe bronchus, right sided bronchus intermedius, right middle lobe bronchus, right lower lobe bronchus, left upper lobe bronchus and left lower lobe bronchus and the various segments and subsegments were all inspected and are all within normal limits. There was no endobronchial tumor noted. At this point, the bronchoscope was wedged into the posterior segment of the right upper lobe and the bronchioloalveolar lavage was done. A total of 80 mL of fluid was infused and 20 mL was suctioned out without any difficulties. The aspirate was nonbloody but was quite turbid and cloudy. Bronchoscope was removed. The procedure was completed without any complications. The patient was transferred back to her room without any issues. This sample will be sent for cultures
[2019-10-13] MEDS: ENOXAPARIN 30 MG/0.3 ML SYRINGE SQ SCH (15:52)
--- NOTE | 2019-10-13 18:11 | P.PN ---
Subjective Progress Note Date: 10/13/19 Louise dennis is a 74-year-old female who presented to [facility] emergency room with a chief complaint of headache and neck pain she was evaluated in emergency room, computed tomography scan of the brain and cervical spine did not reveal any significant abnormality, chest x-ray was positive for right upper lobe infiltrate, she was started on IV antibiotics and was admitted to medical floor, pulmonary consultation was requested. Patient denies any fever or chills she has occasional cough, she has shortness of breath, but this is a long-term complaint for her that is not changed from her baseline. Patient stated that she has history of asthma. She denies ever smoking. She stated that she has been losing weight recently. On 10/07/2019 patient was seen and examined on the medical floor there is no fever or chills no dizziness no chest pain no shortness of breath she has occas ional cough no nausea or vomiting no abdominal pain no diarrhea no burning was urination no frequency or urgency and no hematuria, she is still complaining of headache and neck pain On 10/08/2019 patient was seen and examined on the medical floor, she is alert and oriented 3 in no apparent distress, she is complaining of neck pain, she has occasional cough without sputum production, otherwise she denies any complaints, there is no fever or chills no headache or dizziness no chest pain no shortness of breath no nausea or vomiting no abdominal pain no diarrhea no burning was urination no frequency or urgency no hematuria chest x-ray revealing worsening right upper lobe infiltrate On 10/09/2019 patient was seen and examined on the medical floor she is alert and oriented 3 she is complaining of severe pain in her neck, actually she is crying was pain at this time, she has fentanyl patch 100 g every 72 hours she had a new patch put on today, she also has Galt, Fioricet, and Imitrex ordered for headache, there is a consult for anesthesia for possible injection in the neck, hopefully she will be seen by them tomorrow. At this time patient is requesting something more for pain Will order Dilaudid 0.5 mg when necessary. Otherwise she denies any complaints there is no fever or chills no headache or dizziness no chest pain no shortness of breath no cough no nausea or vomiting no abdominal pain no diarrhea no burning was urination no frequency or urgency no hematuria. On 10/10/2019 patient was seen and examined on the medical floor she is alert and oriented 3 in no apparent distress she is still complaining of neck pain otherwise she denies any complaints there is no fever or chills no headache or dizziness no chest pain no shortness of breath no cough no nausea or vomiting no abdominal pain no diarrhea no burning with urination no frequency or urgency and no hematuria chest x-rays revealing worsening infiltrate liver enzymes are elevated with check liver ultrasound awaiting further input from pulmonary awaiting intervention by anesthesia for neck pain On 10/11/2019 patient was seen and examined on the medical floor she is alert and oriented 3 in no apparent distress there is no fever or chills no headache or dizziness no chest pain no shortness of breath no cough no nausea or vomiting no abdominal pain no diarrhea no burning was urination no frequency or urgency and no hematoma. Main complaints for patient is neck pain she is scheduled for epidural injection today. On 10/12/2019 patient was seen and examined on the medical floor she is complaining of headache and neck pain otherwise she denies any complaints there is no fever or chills no headache or dizziness no chest pain no shortness of breath no cough no nausea or vomiting no abdominal pain no diarrhea no burning with urination no frequency or urgency no hematuria, patient has left upper lobe pneumonia, no significant improvement on chest x-ray pulmonary following continue with current antibiotics. On 10/13/2019 patient was seen and examined on the medical floor, she is feeling better, still complaining of cough and neck pain otherwise she denies any complaints. she underwent bronchoscopy today with Dr Womack. Objective - Vital Signs Vital signs: Vital Signs Temp 97.7 F 10/13/19 15:00 Pulse 100 10/13/19 16:00 Resp 16 10/13/19 16:00 BP 129/79 10/13/19 15:00 Pulse Ox 98 10/13/19 15:00 Intake & Output 10/12/19 10/13/19 10/13/19 18:59 06:59 18:59 Intake Total 220 200 Balance 220 200 Intake: IV 200 Intake, IV Titration 100 Amount Piperacillin-Tazobactam 3 100 .375 gm In Sodium Chloride 0.9% 100 ml @ 25 mls/hr IVPB Q12HR [facility] Rx #:[id number] Oral 120 Other: Voiding Method Toilet Toilet Toilet # Voids 4 1 2 - Exam In general patient is alert and oriented 3 in no apparent distress HEENT head normocephalic and atraumatic Neck is supple no JVD no goiter no lymphadenopathy no meningeal signs Chest exam reveals a few scattered rhonchi bilaterally no wheezing Cardiac exam reveals regular heart sounds S1 and S2 no gallops no murmurs Abdomen is soft nontender no organomegaly with normal bowel sounds Extremity exam reveals no edema no cyanosis or clubbing Neurological examination reveals no gross focal deficits - Labs CBC & Chem 7: 10/10/19 08:33 10/12/19 07:45 Assessment and Plan Plan: 1. Right upper lobe infiltrate suggestive of pneumonia, with worsening x-ray, infectious disease consultation requested 2. Headache and neck pain, cause is unclear could be related to degenerative disc disease, computed tomography scan of the head and cervical spine nonrevealing, neurology consultation is requested, neurology are recommending occipital block Will consult anesthesia 3. Underlying history of chronic kidney disease, monitoring kidney function closely 4. Recent history of fall with hip fracture requiring surgery 5. Remote history of TIA 6. History of migraine headache 7. History of weight loss maintained on Marinol 8. Chronic back pain maintained on fentanyl patch 9. Underlying history of depression with anxiety disorder 10. For DVT prophylaxis we will use subcu Lovenox At this time patient is admitted to medical floor she was started on IV antibiotic pulmonary consultation was requested regarding right upper lobe infiltrate Neurology consultation was requested in regard to headache and neck pain Will follow closely
[2019-10-13] MEDS: LORATADINE 10 MG TAB PO SCH (20:23)
[2019-10-13] MEDS: MIRTAZAPINE 15 MG TAB PO SCH (20:25)
[2019-10-13] MEDS: ALBUTEROL NEBULIZED 2.5 MG/3 ML INHALATION PRN (20:29)
--- NOTE | 2019-10-14 03:22 | PN ---
PROGRESS NOTE DATE OF SERVICE: 10/13/2019 REASON FOR FOLLOWUP: Right upper lobe pneumonia. INTERVAL HISTORY: The patient is afebrile. The patient is status post bronchoscopy with bronchoalveolar lavage. The patient tolerated the procedure. There was no evidence of any intrabronchial lesion. No chest pain or shortness of breath. Occasional cough. No nausea, no vomiting. No abdominal pain, no diarrhea. PHYSICAL EXAMINATION: Blood pressure 121/69, pulse 81, temperature 98.6. She is 97% on room air General description is an elderly female lying in bed in no distress. RESPIRATORY SYSTEM: Unlabored breathing, some coarse breath sounds on the right side. No wheeze. HEART: S1, S2. Regular rate and rhythm. ABDOMEN: Soft, no tenderness. LABS: BUN of 43, creatinine 1.46. Blood culture has been negative. DIAGNOSTIC IMPRESSION AND PLAN: Patient with right upper lobe pneumonia in this patient who is status post bronchoscopy. We will wait for the culture to finalize. Continue with Zosyn and monitor clinical course closely. MMODL / IJN: [id number] /
[2019-10-14] MEDS: LEVOTHYROXINE 88 MCG TAB PO SCH (05:44)
[2019-10-14] MEDS: HYDROmorphone 0.5 MG/0.5 ML SYRINGE IVP PRN ×7 (05:49→23:59)
[2019-10-14] MEDS: PIPERACILLIN-TAZOBACTAM 3.375 GM in SODIUM CHLORIDE 0.9% 100 ML IVPB SCH ×2 (08:43→20:47)
[2019-10-14] MEDS: DRONABINOL 2.5 MG CAP PO SCH ×4 (08:44→20:48)
[2019-10-14] MEDS: ENOXAPARIN 30 MG/0.3 ML SYRINGE SQ SCH (08:44)
[2019-10-14] MEDS: CHOLESTYRAMINE (WITH SUGAR) 4 GM PACKET PO SCH ×3 (08:44→20:46)
[2019-10-14] MEDS: PANTOPRAZOLE 40 MG TABLET PO SCH (08:44)
[2019-10-14] MEDS: CALCITRIOL 0.25 MCG CAP PO SCH (08:44)
[2019-10-14] MEDS: DULoxetine HCL 60 MG CAPSULE.DR PO SCH (08:45)
[2019-10-14] MEDS: METOLAZONE 2.5 MG TAB PO SCH (08:45)
[2019-10-14] MEDS: POTASSIUM CHLORIDE ER 10 MEQ TAB.ER.PRT PO SCH (08:45)
[2019-10-14] MEDS: buPROPion XL 300 MG TAB.ER.24H PO SCH (08:45)
[2019-10-14] MEDS: busPIRone HCl 10 MG TAB PO SCH ×2 (08:45→20:45)
[2019-10-14] MEDS: FUROSEMIDE 20 MG TAB PO SCH (08:45)
[2019-10-14] MEDS: FERROUS SULFATE 325 MG TAB PO SCH (08:45)
[2019-10-14] MEDS: BUTALB/APAP/CAFF 50-325-40MG TAB PO PRN ×4 (08:50→21:57)
[2019-10-14 10:05] LABS: Albumin 3.8 g/dL (3.5-5.0); Calcium 9.6 mg/dL (8.4-10.2); Phosphorus 3.3 mg/dL (2.5-4.5); Potassium 4.4 mmol/L (3.5-5.1); Total Bilirubin 0.3 mg/dL (0.2-1.3); Total Protein 6.3 g/dL (6.3-8.2)
[2019-10-14 10:20] LABS: Anisocytosis Slight; Basophils # (A) 0.1 k/uL (0-0.2); Basophils % (A) 1 %; Eosinophils # (A) 0.2 k/uL (0-0.7); Eosinophils % (A) 2 %; HGB 11.3 gm/dL (11.4-16.0); Hypochromasia Marked; Lymphocytes # (A) 1.9 k/uL (1.0-4.8); Lymphocytes % (A) 19 %; MCH 29.6 pg (25.0-35.0); MCHC 30.6 g/dL (31.0-37.0); MCV 96.9 fL (80.0-100.0); Macrocytosis Slight; Mean Platelet Volume 7.4; Monocytes # (A) 0.4 k/uL (0-1.0); Monocytes % (A) 4 %; Neutrophils # (A) 7.2 k/uL (1.3-7.7); Neutrophils % (A) 73 %; Platelet Count 373 k/uL (150-450); RBC 3.82 m/uL (3.80-5.40); RDW 17.4 % (11.5-15.5); WBC 9.9 k/uL (3.8-10.6)
--- NOTE | 2019-10-14 10:52 | P.PN ---
Subjective Patient is seen in follow-up for chronic kidney disease. Pain is better controlled. No chest pain or shortness of breath. No vomiting or diarrhea. No edema. Itching better. Vital signs are stable. General: The patient appeared well nourished and normally developed. HEENT: Head exam is unremarkable. Neck is without jugular venous distension. LUNGS: Lungs are clear to auscultation and percussion. Breath sounds decreased. HEART: Rate and Rhythm are regular. ABDOMEN: Soft, nontender. EXTREMITITES: No clubbing, cyanosis, or edema. Objective - Vital Signs Vital signs: Vital Signs Temp 98.4 F 10/14/19 07:00 Pulse 81 10/14/19 07:00 Resp 16 10/14/19 08:46 BP 136/82 10/14/19 07:00 Pulse Ox 98 10/14/19 07:00 Intake & Output 10/13/19 10/14/19 10/14/19 18:59 06:59 18:59 Intake Total 400 100 Balance 400 100 Intake: IV 200 Intake, IV Titration 100 Amount Piperacillin-Tazobactam 3 100 .375 gm In Sodium Chloride 0.9% 100 ml @ 25 mls/hr IVPB Q12HR [facility] Rx #:[id number] Oral 200 Other: Voiding Method Toilet Toilet # Voids 2 2 - Labs CBC & Chem 7: 10/14/19 09:11 10/14/19 09:11 Labs: Abnormal Lab Results - Last 24 Hours (Table) 10/14/19 10/14/19 Range/Units 09:11 09:11 Hgb 11.3 L (11.4-16.0) gm/dL MCHC 30.6 L (31.0-37.0) g/dL RDW 17.4 H (11.5-15.5) % BUN 42 H (7-17) mg/dL Creatinine 1.45 H (0.52-1.04) mg/dL AST 130 H (14-36) U/L ALT 126 H (4-34) U/L Alkaline Phosphatase 189 H (38-126) U/L Microbiology - Last 24 Hours (Table) 10/13/19 14:20 Gram Stain - Preliminary Bronchial Washings - Right Bronchial Washings Culture - Preliminary 10/13/19 14:20 Acid Fast Bacilli Culture - Preliminary Bronchial Washings - Right 10/13/19 14:20 Fungal Culture - Preliminary Bronchial Washings - Right Assessment and Plan Plan: Assessment: 1. Chronic kidney disease stage IIIB/4 with baseline creatinine in the range of 1.5-2.5. GFR currently at baseline. Etiology is nephrosclerosis and right renal atrophy. 2. Right upper lobe pneumonia maintained on antibiotics. S/p bronchoscopy with broncheoalveolar lavage on October 11. 3. Chronic kidney disease mineral bone disease maintained on calcitriol. 4. Left femoral neck fracture status post hemiarthroplasty in May 2019. 5. Chronic lower extremity edema. Stable. Plan: Maintain Lasix 20 mg once daily. Continue to monitor renal function and urine output. Renal function stable. Phosphorus normal.
[2019-10-14] MEDS: THIAMINE 100 MG TAB PO SCH (12:06)
[2019-10-14] MEDS: FOLIC ACID 1 MG TAB PO SCH (12:06)
--- NOTE | 2019-10-14 13:16 | P.PN ---
Subjective Progress Note Date: 10/14/19 Principal diagnosis: Right upper lobe community-acquired pneumonia The patient is seen today 10/07/2019 in follow-up on the regular medical floor. She is currently awake and alert in no acute distress. Resting comfortably in bed. Still having some head and neck pain. Still some shortness of breath with exertion. Loose nonproductive cough. Blood cultures reveal no growth. White count 10.1. Hemoglobin 10.1. Sodium 136. Potassium 4.9. Creatinine 1.92. She is maintained on ceftriaxone and azithromycin along with bronchodilators. The patient is seen today 10/09/2019 in follow-up on the regular medical floor. She is currently awake and alert in no acute distress. She continues have ongoing complaints of neck pain. Denies any worsening shortness of breath, cou gh or congestion. She's been maintaining O2 saturations in the 90s on room air. Afebrile. Hemodynamically stable. Blood culture reveals no growth. White count 9.0. Hemoglobin 11.7. Sodium 137. Potassium 4.3. Creatinine 1.66. On 10/10/2019 patient seen in follow-up on the general medical floor. She is resting comfortably in bed, room air pulse ox is 96%, she is afebrile, hemodynamically stable. She remains on Zosyn, her chest x-ray this morning showed some improvement in the appearance of right upper lobe pneumonia. Today's labs have shown a white blood cell, 7.7, hemoglobin is 10.4, electrolytes are within normal limits, renal profile fairly stable, would be on a 54 creatinine 1.64. Blood cultures have shown no growth. No altered mentation, no worsening dyspnea. On 10/11/2019 patient seen in follow-up on a general medical floor. Remains on Zosyn, but clinically stable, room air pulse ox 97%, hemodynamically patient is stable, she is afebrile. Blood cultures have shown no growth. Today's labs have been reviewed, electrolytes are within normal limits, renal profile s lightly improved. On 10/12/2019 patient seen in follow-up on a general medical floor, she is resti ng comfortably in bed, she states her breathing is comfortable, she is on room air. Remains on Zosyn. Blood culture is negative, occasional cough with no phlegm production, lung sounds are essentially clear, no crackles, no rhonchi or wheezing. No fever or chills. Follow-up chest x-ray is pending today, her complaint is pain on both sides with coughing, otherwise seems to pretty comfortable, neck pain is improved. No dyspnea, no altered mentation. On 10/13/2019 patient seen in follow-up on a general medical floor. She is to chest x-ray did not show much improvement in the appearance of right upper lobe infiltrate, although clinically patient remains stable, she is afebrile, she is on room air, lung sounds are clear, blood cultures have been negative, no cough or congestion, she is having some right chest discomfort with deep breathing and coughing. Today's labs have been reviewed, renal profile slightly improved. Patient has been nothing by mouth after midnight, we discussed bronchoscopy with BAL today with her and patient is agreeable to proceed On 10/14/2019 patient seen in follow-up on a general medical floor, awake and alert, in no acute distress, she is on room air, ambulating in the room, lung sounds are slightly coarse, no wheezing, good air entry noted bilaterally, no crackles auscultated. No completing chest pain, no hemoptysis, rash patient is afebrile, remains on Zosyn for antibiotic coverage, today's labs have been reviewed, renal profile is stable, he elected choice within normal limits, white count is 9.9, hemoglobin is 11.3. Patient underwent bronchoscopy with BAL yesterday on 10/14/2019 and brought coarse cultures are negative Objective - Vital Signs Vital signs: Vital Signs Temp 98.4 F 10/14/19 07:00 Pulse 81 10/14/19 07:00 Resp 16 10/14/19 08:46 BP 136/82 10/14/19 07:00 Pulse Ox 98 10/14/19 07:00 Intake & Output 10/13/19 10/14/19 10/14/19 18:59 06:59 18:59 Intake Total 400 100 Balance 400 100 Intake: IV 200 Intake, IV Titration 100 Amount Piperacillin-Tazobactam 3 100 .375 gm In Sodium Chloride 0.9% 100 ml @ 25 mls/hr IVPB Q12HR [facility] Rx #:[id number] Oral 200 Other: Voiding Method Toilet Toilet # Voids 2 2 - Exam GENERAL EXAM: Alert, very pleasant, 74-year-old frail looking white female, on room air with a pulse ox of 98% comfortable in no apparent distress. HEAD: Normocephalic/atraumatic. EYES: Normal reaction of pupils, equal size. Conjunctiva pink, sclera white. NOSE: Clear with pink turbinates. THROAT: No erythema or exudates. NECK: No masses, no JVD, no thyroid enlargement, no adenopathy. CHEST: No chest wall deformity. Symmetrical expansion. LUNGS: Equal air entry with diminished breath sounds at the bases, and some scattered rhonchi CVS: Regular rate and rhythm, normal S1 and S2, no gallops, no murmurs, no rubs ABDOMEN: Soft, nontender. No hepatosplenomegaly, normal bowel sounds, no guar ding or rigidity. EXTREMITIES: No clubbing, no edema, no cyanosis, 2+ pulses and upper and lower extremities. MUSCULOSKELETAL: Muscle strength and tone normal. SPINE: No scoliosis or deformity SKIN: No rashes CENTRAL NERVOUS SYSTEM: Alert and oriented -3. No focal deficits, tone is normal in all 4 extremities. PSYCHIATRIC: Alert and oriented -3. Appropriate affect. Intact judgment and insight. - Labs CBC & Chem 7: 10/14/19 09:11 10/14/19 09:11 Labs: Abnormal Lab Results - Last 24 Hours (Table) 10/14/19 10/14/19 Range/Units 09:11 09:11 Hgb 11.3 L (11.4-16.0) gm/dL MCHC 30.6 L (31.0-37.0) g/dL RDW 17.4 H (11.5-15.5) % BUN 42 H (7-17) mg/dL Creatinine 1.45 H (0.52-1.04) mg/dL AST 130 H (14-36) U/L ALT 126 H (4-34) U/L Alkaline Phosphatase 189 H (38-126) U/L Microbiology - Last 24 Hours (Table) 10/13/19 14:20 Gram Stain - Preliminary Bronchial Washings - Right Bronchial Washings Culture - Preliminary 10/13/19 14:20 Acid Fast Bacilli Culture - Preliminary Bronchial Washings - Right 10/13/19 14:20 Fungal Culture - Preliminary Bronchial Washings - Right Assessment and Plan Plan: Assessment: 1 Acute community-acquired right upper lobe pneumonia, did a CT of the chest without contrast showed large consolidation in posterior right upper lobe lung base, suspect aspiration related pneumonia, status post bronchoscopy with BAL on 10/14/2019 2 History of chronic bronchial asthma currently stable 3 Recent fall with hip fracture 4 Chronic kidney disease 5 History of DVT 6 GERD 7 Degenerative joint disease 8 History of migraine cephalgia 9 History of pancreatitis 10 History of constipation 11 History of TIA 12 History of spinal stenosis 13 History of anxiety/depression/panic disorder 14 Protein calorie malnutrition 15 Poor overall functional performance based and the above-mentioned multiple comorbidities. Plan: Clinically stable, no fever or chills, continue current antibiotic coverage, bronchial lavage cultures are pending, vital signs are stable, encourage ambulation. Will await results of the cultures, if stable likely discharge in the next 24 hours. Repeat chest x-ray today I performed a history & physical examination of the patient and discussed their management with my nurse practitioner, Brittany Garcia. I reviewed the nurse practitioner's note and agree with the documented findings and plan of care. Lung sounds are positive for diffuse rhonchi. The findings and the impression was discussed with the patient. I attest to the documentation by the nurse practitioner. Time with Patient: Less than 30
--- NOTE | 2019-10-14 14:02 | XR ---
EXAMINATION TYPE: XR chest 2V DATE OF EXAM: 10/14/2019 COMPARISON: 10/12/2019 TECHNIQUE: PA and lateral views submitted. HISTORY: Follow-up pneumonia FINDINGS: Persistent large area of consolidation right upper lobe. Subsegmental changes seen at the left lung. Surgical changes in the epigastrium. Suggestion of a small hiatal hernia. Heart size normal. Mild hyp erinflation with biapical pleural thickening. No overt failure. Chronic deformity and fracture of the left clavicle. IMPRESSION: 1. Stable right upper lobe consolidation most typical of pneumonia. Smaller pulmonary nodules seen by chest CT not as well-seen by standard x-ray.
--- NOTE | 2019-10-14 17:33 | P.PN ---
Subjective Progress Note Date: 10/14/19 Louise dennis is a 74-year-old female who presented to [facility] emergency room with a chief complaint of headache and neck pain she was evaluated in emergency room, computed tomography scan of the brain and cervical spine did not reveal any significant abnormality, chest x-ray was positive for right upper lobe infiltrate, she was started on IV antibiotics and was admitted to medical floor, pulmonary consultation was requested. Patient denies any fever or chills she has occasional cough, she has shortness of breath, but this is a long-term complaint for her that is not changed from her baseline. Patient stated that she has history of asthma. She denies ever smoking. She stated that she has been losing weight recently. On 10/07/2019 patient was seen and examined on the medical floor there is no fever or chills no dizziness no chest pain no shortness of breath she has occas ional cough no nausea or vomiting no abdominal pain no diarrhea no burning was urination no frequency or urgency and no hematuria, she is still complaining of headache and neck pain On 10/08/2019 patient was seen and examined on the medical floor, she is alert and oriented 3 in no apparent distress, she is complaining of neck pain, she has occasional cough without sputum production, otherwise she denies any complaints, there is no fever or chills no headache or dizziness no chest pain no shortness of breath no nausea or vomiting no abdominal pain no diarrhea no burning was urination no frequency or urgency no hematuria chest x-ray revealing worsening right upper lobe infiltrate On 10/09/2019 patient was seen and examined on the medical floor she is alert and oriented 3 she is complaining of severe pain in her neck, actually she is crying was pain at this time, she has fentanyl patch 100 g every 72 hours she had a new patch put on today, she also has [place], Fioricet, and Imitrex ordered for headache, there is a consult for anesthesia for possible injection in the neck, hopefully she will be seen by them tomorrow. At this time patient is requesting something more for pain Will order Dilaudid 0.5 mg when necessary. Otherwise she denies any complaints there is no fever or chills no headache or dizziness no chest pain no shortness of breath no cough no nausea or vomiting no abdominal pain no diarrhea no burning was urination no frequency or urgency no hematuria. On 10/10/2019 patient was seen and examined on the medical floor she is alert and oriented 3 in no apparent distress she is still complaining of neck pain otherwise she denies any complaints there is no fever or chills no headache or dizziness no chest pain no shortness of breath no cough no nausea or vomiting no abdominal pain no diarrhea no burning with urination no frequency or urgency and no hematuria chest x-rays revealing worsening infiltrate liver enzymes are elevated with check liver ultrasound awaiting further input from pulmonary awaiting intervention by anesthesia for neck pain On 10/11/2019 patient was seen and examined on the medical floor she is alert and oriented 3 in no apparent distress there is no fever or chills no headache or dizziness no chest pain no shortness of breath no cough no nausea or vomiting no abdominal pain no diarrhea no burning was urination no frequency or urgency and no hematoma. Main complaints for patient is neck pain she is scheduled for epidural injection today. On 10/12/2019 patient was seen and examined on the medical floor she is complaining of headache and neck pain otherwise she denies any complaints there is no fever or chills no headache or dizziness no chest pain no shortness of breath no cough no nausea or vomiting no abdominal pain no diarrhea no burning with urination no frequency or urgency no hematuria, patient has left upper lobe pneumonia, no significant improvement on chest x-ray pulmonary following continue with current antibiotics. On 10/13/2019 patient was seen and examined on the medical floor, she is feeling better, still complaining of cough and neck pain otherwise she denies any complaints. she underwent bronchoscopy today with Dr Womack. On 10/14/2019 patient was seen and examined on the medical floor she is alert and oriented 3 in no apparent distress she is still complaining of neck pain and occasional cough otherwise she denies any complaints there is no fever or chills no headache or dizziness no chest pain no shortness of breath no nausea or vomiting no abdominal pain no diarrhea no blood in the stools no burning with urination no frequency or urgency and no hematuria Objective - Vital Signs Vital signs: Vital Signs Temp 98.5 F 10/14/19 15:00 Pulse 104 H 10/14/19 15:00 Resp 16 10/14/19 15:00 BP 113/72 10/14/19 15:00 Pulse Ox 99 10/14/19 15:00 Intake & Output 10/13/19 10/14/19 10/14/19 18:59 06:59 18:59 Intake Total 400 100 200 Balance 400 100 200 Intake: IV 200 Intake, IV Titration 100 Amount Piperacillin-Tazobactam 3 100 .375 gm In Sodium Chloride 0.9% 100 ml @ 25 mls/hr IVPB Q12HR [facility] Rx #:[id number] Oral 200 200 Other: Voiding Method Toilet Toilet # Voids 2 2 3 - Exam In general patient is alert and oriented 3 in no apparent distress HEENT head normocephalic and atraumatic Neck is supple no JVD no goiter no lymphadenopathy no meningeal signs Chest exam reveals a few scattered rhonchi bilaterally no wheezing Cardiac exam reveals regular heart sounds S1 and S2 no gallops no murmurs Abdomen is soft nontender no organomegaly with normal bowel sounds Extremity exam reveals no edema no cyanosis or clubbing Neurological examination reveals no gross focal deficits - Labs CBC & Chem 7: 10/14/19 09:11 10/14/19 09:11 Labs: Abnormal Lab Results - Last 24 Hours (Table) 10/14/19 10/14/19 Range/Units 09:11 09:11 Hgb 11.3 L (11.4-16.0) gm/dL MCHC 30.6 L (31.0-37.0) g/dL RDW 17.4 H (11.5-15.5) % BUN 42 H (7-17) mg/dL Creatinine 1.45 H (0.52-1.04) mg/dL AST 130 H (14-36) U/L ALT 126 H (4-34) U/L Alkaline Phosphatase 189 H (38-126) U/L Microbiology - Last 24 Hours (Table) 10/13/19 14:20 Gram Stain - Preliminary Bronchial Washings - Right Bronchial Washings Culture - Preliminary 10/13/19 14:20 Acid Fast Bacilli Culture - Preliminary Bronchial Washings - Right 10/13/19 14:20 Fungal Culture - Preliminary Bronchial Washings - Right Assessment and Plan Plan: 1. Right upper lobe infiltrate suggestive of pneumonia, with worsening x-ray, infectious disease consultation requested 2. Headache and neck pain, cause is unclear could be related to degenerative disc disease, computed tomography scan of the head and cervical spine nonrevealing, neurology consultation is requested, neurology are recommending occipital block Will consult anesthesia 3. Underlying history of chronic kidney disease, monitoring kidney function closely 4. Recent history of fall with hip fracture requiring surgery 5. Remote history of TIA 6. History of migraine headache 7. History of weight loss maintained on Marinol 8. Chronic back pain maintained on fentanyl patch 9. Underlying history of depression with anxiety disorder 10. For DVT prophylaxis we will use subcu Lovenox At this time patient is admitted to medical floor she was started on IV antibiotic pulmonary consultation was requested regarding right upper lobe infiltrate Neurology consultation was requested in regard to headache and neck pain Will follow closely
[2019-10-14] MEDS: LORATADINE 10 MG TAB PO SCH (20:46)
[2019-10-14] MEDS: MIRTAZAPINE 15 MG TAB PO SCH (23:10)
--- NOTE | 2019-10-14 23:25 | PN ---
PROGRESS NOTE DATE OF SERVICE: 10/14/2019 REASON FOR FOLLOWUP: Right upper lobe pneumonia and a question of aspiration. INTERVAL HISTORY: The patient is currently afebrile, has been complaining of some pain in the neck area. Denies having any chest pain or shortness of breath or cough. No abdominal pain or diarrhea. PHYSICAL EXAMINATION: Blood pressure 116/69 with a pulse of 94, temperature 98.4. She is 98% on room air. General description is an elderly female lying in bed in no distress. RESPIRATORY SYSTEM: Unlabored breathing. Clear to auscultation anteriorly. HEART: S1, S2. Regular rate and rhythm. ABDOMEN: Soft. No tenderness. LABS: Bronchoscopy culture currently pending. White count 9.9. DIAGNOSTIC IMPRESSION AND PLAN: Patient with right upper lobe pneumonia with concern for possible aspiration etiology, status post bronchoscopy. No evidence of any obstruction or abnormality. Patient is currently covered with Zosyn; to be continued while waiting for the culture to finalize. Continue supportive care. MMODL / IJN: [id number] /
[2019-10-15] MEDS: LEVOTHYROXINE 88 MCG TAB PO SCH (05:24)
[2019-10-15] MEDS: HYDROmorphone 0.5 MG/0.5 ML SYRINGE IVP PRN ×4 (05:24→14:45)
--- NOTE | 2019-10-15 07:17 | CONS ---
CONSULTATION DATE OF SERVICE: 10/14/2019 REASON FOR CONSULTATION: Elevated LFTs. REQUESTING PHYSICIAN: Dr. Desir. HISTORY OF PRESENT ILLNESS: The patient is a 74-year-old pleasant white female admitted to the hospital because of shortness of breath, headache, nausea, vomiting, and subsequently diagnosed with pneumonia and since then has been on broad-spectrum antibiotics. She has been in the hospital for the last 7 days. At the time of admission to the hospital she was noted to have normal serum transaminases, but during the course of the hospitalization she continued to have slightly elevated serum transaminases over the last one week. The patient denies any prior history of chronic liver disease. No history of jaundice or hepatitis in the past. No history of alcohol use. Labs at the time of admission to the hospital showed serum AST of 39 and serum ALT was 20. Today ALT is 126 and AST is 130. Alkaline phosphatase 189 and T bilirubin is normal. She did have hepatitis serologies for coronavirus that was negative. She did have ultrasound of the right upper quadrant done that showed evidence of heterogenicity appearing liver consistent with fatty infiltration. The patient denies any abdominal pain. No nausea, vomiting. She thinks her pneumonia is gradually improving. PAST MEDICAL HISTORY: Significant for hypertension, hyperlipidemia, chronic migraines, gastroesophageal reflux disease, hypothyroidism, anxiety, depression. MEDICATIONS AT HOME: Include Questran, fentanyl, Restoril, buspirone, Imitrex, K-Dur, Prilosec, Remeron, Zaroxolyn, Synthroid, Xyzal, Lasix, folic acid, iron sulfate, Drisdol, Marinol, Cymbalta, vitamin B12 injections, calcium, magnesium supplement, albuterol, calcitriol. ALLERGIES: Mold, dust and polio vaccine. SOCIAL HISTORY: Remote history of smoking. No alcohol use. FAMILY HISTORY: Unremarkable. PAST SURGICAL HISTORY: Multiple gastric surgeries and subsequently underwent total gastrectomy for recurrent peptic ulcer disease, history of low back surgery, EGD, colonoscopy in the past. REVIEW OF SYSTEMS: CARDIOPULMONARY: ( ). GENITOURINARY: No dysuria or hematuria. MUSCULOSKELETAL: Complains of chronic back pain. NEUROLOGY: Unremarkable. PSYCHIATRY: Unremarkable. ENT/VISION: Unremarkable. CONSTITUTIONAL: No recent weight loss. No fever, chills, night sweats. PHYSICAL EXAMINATION: She appears comfortable. No apparent distress. VITAL SIGNS: Stable. Pulse rate 104 temperature 98.5, and blood pressure 112/73. HEENT examination unremarkable. Conjunctivae pink, sclerae anicteric. Oral cavity no lesions. NECK: No JVD or lymph node enlargement. CHEST: Clear to auscultation. HEART: Regular rate and rhythm. ABDOMEN: Soft. Bowel sounds are positive. There was mild tenderness in the right upper quadrant area. Rest of the abdomen was benign. EXTREMITIES: No pedal edema. SKIN: No rashes. NEUROLOGIC: Alert and oriented x3. No focal deficits. LAB: Done today, AST is 130, ALT is 126, and alkaline phosphatase is 189. T bilirubin is 0.3. As mentioned earlier, at the time of admission to the hospital, ALT was 20, and AST was 39. She was noted to have mild elevation of serum transaminases during the course of hospitalization. BUN is 42, creatinine 1.45. IMPRESSION: 1. Elevated liver function tests noted during this hospitalization which were normal at the time of admission to the hospital, most likely dealing with medication induced hepatitis. Her serum transaminases, however, are only slightly elevated though they appear to be gradually increasing on a daily basis. She did have ultrasound of the liver performed that showed mild heterogeneity consistent with possible fatty liver disease. It is likely that the elevated LFTs are most likely medication-related, probably antibiotics. She has been on Zosyn that was started on 10/06/2019. All other medications are the same that she was taking at home. Doubt dealing with any chronic liver disease. 2. Pneumonia, on broad-spectrum antibiotics with Zosyn. 3. History of anxiety, depression. 4. History of multiple gastric surgeries with total gastrectomy in 1994 from recurrent peptic ulcer disease. 5. Hypothyroidism. 6. Chronic back pain. RECOMMENDATIONS: In to the serum transaminases which are still mildly elevated, we will continue to watch them closely. She can continue current medications. We will obtain hepatitis serologies for A, B and C. Try to avoid hepatotoxic medications and will follow with you closely. Thank you for this consultation. MMODL / IJN: [id number] /
[2019-10-15 08:12] LABS: Anisocytosis Slight; Basophils # (A) 0.1 k/uL (0-0.2); Basophils % (A) 1 %; Eosinophils # (A) 0.3 k/uL (0-0.7); Eosinophils % (A) 4 %; HCT 37.2 % (34.0-46.0); Hypochromasia Moderate; Lymphocytes # (A) 2.1 k/uL (1.0-4.8); Lymphocytes % (A) 22 %; MCH 28.4 pg (25.0-35.0); MCHC 29.6 g/dL (31.0-37.0); MCV 95.8 fL (80.0-100.0); Mean Platelet Volume 7.3; Monocytes # (A) 0.5 k/uL (0-1.0); Monocytes % (A) 5 %; Neutrophils # (A) 6.3 k/uL (1.3-7.7); Neutrophils % (A) 67 %; Platelet Count 375 k/uL (150-450); RBC 3.88 m/uL (3.80-5.40); RDW 17.5 % (11.5-15.5); WBC 9.4 k/uL (3.8-10.6)
[2019-10-15 08:22] LABS: INR 0.9 (<1.2); Prothrombin Time 9.4 sec (9.0-12.0)
[2019-10-15 08:28] LABS: Albumin 3.9 g/dL (3.5-5.0); Calcium 9.7 mg/dL (8.4-10.2); Potassium 4.5 mmol/L (3.5-5.1); Total Bilirubin 0.3 mg/dL (0.2-1.3); Total Protein 6.4 g/dL (6.3-8.2)
[2019-10-15] MEDS: FERROUS SULFATE 325 MG TAB PO SCH ×2 (08:34→08:44)
[2019-10-15] MEDS: PANTOPRAZOLE 40 MG TABLET PO SCH (08:34)
[2019-10-15] MEDS: POTASSIUM CHLORIDE ER 10 MEQ TAB.ER.PRT PO SCH (08:34)
[2019-10-15] MEDS: FUROSEMIDE 20 MG TAB PO SCH (08:34)
[2019-10-15] MEDS: DRONABINOL 2.5 MG CAP PO SCH ×2 (08:34→11:34)
[2019-10-15] MEDS: FOLIC ACID 1 MG TAB PO SCH (08:34)
[2019-10-15] MEDS: DULoxetine HCL 60 MG CAPSULE.DR PO SCH (08:34)
[2019-10-15] MEDS: buPROPion XL 300 MG TAB.ER.24H PO SCH (08:34)
[2019-10-15] MEDS: BUTALB/APAP/CAFF 50-325-40MG TAB PO PRN ×2 (08:34→12:25)
[2019-10-15] MEDS: THIAMINE 100 MG TAB PO SCH (08:35)
[2019-10-15] MEDS: ENOXAPARIN 30 MG/0.3 ML SYRINGE SQ SCH (08:35)
[2019-10-15] MEDS: busPIRone HCl 10 MG TAB PO SCH (08:35)
[2019-10-15] MEDS: PIPERACILLIN-TAZOBACTAM 3.375 GM in SODIUM CHLORIDE 0.9% 100 ML IVPB SCH (08:36)
[2019-10-15] MEDS: CHOLESTYRAMINE (WITH SUGAR) 4 GM PACKET PO SCH (08:39)
--- NOTE | 2019-10-15 10:10 | P.PN ---
Subjective Patient is seen in follow-up for chronic kidney disease. Pain is better controlled. No chest pain or shortness of breath. No vomiting or diarrhea. No edema. No active complaints at this time. Vital signs are stable. General: The patient appeared well nourished and normally developed. HEENT: Head exam is unremarkable. Neck is without jugular venous distension. LUNGS: Lungs are clear to auscultation and percussion. Breath sounds decreased. HEART: Rate and Rhythm are regular. ABDOMEN: Soft, nontender. EXTREMITITES: No clubbing, cyanosis, or edema. Objective - Vital Signs Vital signs: Vital Signs Temp 97.9 F 10/15/19 07:12 Pulse 71 10/15/19 07:12 Resp 14 10/15/19 07:12 BP 133/73 10/15/19 07:12 Pulse Ox 98 10/15/19 07:12 Intake & Output 10/14/19 10/15/19 10/15/19 18:59 06:59 18:59 Intake Total 200 Balance 200 Intake: Oral 200 Other: Voiding Method Toilet # Voids 3 2 - Labs CBC & Chem 7: 10/15/19 07:53 10/15/19 07:53 Labs: Abnormal Lab Results - Last 24 Hours (Table) 10/14/19 10/15/19 10/15/19 Range/Units 09:11 07:53 07:53 Hgb 11.3 L 11.0 L (11.4-16.0) gm/dL MCHC 30.6 L 29.6 L (31.0-37.0) g/dL RDW 17.4 H 17.5 H (11.5-15.5) % BUN 51 H (7-17) mg/dL Creatinine 1.45 H (0.52-1.04) mg/dL Glucose 100 H (74-99) mg/dL AST 199 H (14-36) U/L ALT 146 H (4-34) U/L Alkaline Phosphatase 172 H (38-126) U/L Microbiology - Last 24 Hours (Table) 10/13/19 14:20 Acid Fast Bacilli Smear - Final Bronchial Washings - Right Acid Fast Bacilli Culture - Preliminary 10/13/19 14:20 Gram Stain - Preliminary Bronchial Washings - Right Bronchial Washings Culture - Preliminary Assessment and Plan Plan: Assessment: 1. Chronic kidney disease stage IIIB/4 with baseline creatinine in the range of 1.5-2.5. GFR currently at baseline. Etiology is nephrosclerosis and right renal atrophy. 2. Right upper lobe pneumonia maintained on antibiotics. S/p bronchoscopy with broncheoalveolar lavage on October 11. 3. Chronic kidney disease mineral bone disease maintained on calcitriol. 4. Left femoral neck fracture status post hemiarthroplasty in May 2019. 5. Chronic lower extremity edema. Stable. Plan: Maintain Lasix 20 mg once daily. Continue to monitor renal function and urine output. Renal function stable. Phosphorus normal. No changes from nephrology standpoint.
--- NOTE | 2019-10-15 12:24 | P.PN ---
Subjective Progress Note Date: 10/15/19 Principal diagnosis: Right upper lobe community-acquired pneumonia The patient is seen today 10/15/2019 in follow-up on the regular medical floor. She is currently resting quite comfortably in bed. Awake and alert in no acute distress. She is maintaining good O2 saturations in the upper 90s on room air. She's been afebrile. Hemodynamically stable. Bronchial wash cultures from 10/13/2019 reveal no growth thus far. Blood cultures reveal no growth. White count 9.4. Hemoglobin 11.0. Sodium 139. Potassium 4.5. Creatinine 1.45. She remains on Zosyn and bronchodilators. Objective - Vital Signs Vital signs: Vital Signs Temp 97.9 F 10/15/19 07:12 Pulse 71 10/15/19 07:12 Resp 14 10/15/19 07:12 BP 133/73 10/15/19 07:12 Pulse Ox 98 10/15/19 07:12 Intake & Output 10/14/19 10/15/19 10/15/19 18:59 06:59 18:59 Intake Total 200 Balance 200 Intake: Oral 200 Other: Voiding Method Toilet # Voids 3 2 2 - Exam GENERAL EXAM: Alert, active, very pleasant, frail cachectic 74-year-old female patient, on room air, comfortable in no apparent distress. HEAD: Normocephalic. EYES: Normal reaction of pupils, equal size. NOSE: Clear with pink turbinates. THROAT: No erythema or exudates. NECK: No masses, no JVD. CHEST: No chest wall deformity. LUNGS: Equal air entry with few scattered rhonchi in the right lung, diminished. CVS: S1 and S2 normal with no audible murmur, regular rhythm. ABDOMEN: No hepatosplenomegaly, normal bowel sounds, no guarding or rigidity. SPINE: No scoliosis or deformity SKIN: No rashes CENTRAL NERVOUS SYSTEM: No focal deficits, tone is normal in all 4 extremities. EXTREMITIES: There is no peripheral edema. No clubbing, no cyanosis. Peripheral pulses are intact. - Labs CBC & Chem 7: 10/15/19 07:53 10/15/19 07:53 Labs: Abnormal Lab Results - Last 24 Hours (Table) 10/15/19 10/15/19 Range/Units 07:53 07:53 Hgb 11.0 L (11.4-16.0) gm/dL MCHC 29.6 L (31.0-37.0) g/dL RDW 17.5 H (11.5-15.5) % BUN 51 H (7-17) mg/dL Creatinine 1.45 H (0.52-1.04) mg/dL Glucose 100 H (74-99) mg/dL AST 199 H (14-36) U/L ALT 146 H (4-34) U/L Alkaline Phosphatase 172 H (38-126) U/L Microbiology - Last 24 Hours (Table) 10/13/19 14:20 Acid Fast Bacilli Smear - Final Bronchial Washings - Right Acid Fast Bacilli Culture - Preliminary 10/13/19 14:20 Gram Stain - Preliminary Bronchial Washings - Right Bronchial Washings Culture - Preliminary Assessment and Plan Assessment: 1 Acute community-acquired right upper lobe pneumonia, status post bronchoscopy with BAL on 10/13/2019. Cultures reveal no growth thus far. 2 History of chronic bronchial asthma currently stable 3 Recent fall with hip fracture 4 Chronic kidney disease 5 History of DVT 6 GERD 7 Degenerative joint disease 8 History of migraine cephalgia 9 History of pancreatitis 10 History of constipation 11 History of TIA 12 History of spinal stenosis 13 History of anxiety/depression/panic disorder 14 Protein calorie malnutrition 15 Poor overall functional performance based and the above-mentioned multiple comorbidities. Plan: The patient was seen and evaluated by Dr. Womack She is cleared for discharge from the pulmonary standpoint Follow-up in our office in 1-2 weeks' time I, the cosigning physician, performed a history & physical examination of the patient. Lungs sounds with scattered rhonchi in the right lung, diminished. Maintaining good O2 saturations in the 90s on room air. I discussed the assessment and plan of care with my nurse practitioner, Leyla Grace. I attest to the above note as dictated by her.
--- NOTE | 2019-10-15 13:35 | PN ---
PROGRESS NOTE DATE OF SERVICE: 10/15/2019 Patient is a 74-year-old pleasant white female admitted to hospital with pneumonia, on broad-spectrum antibiotics. She was noted to have elevated serum transaminases during this hospitalization which are gradually increasing. On today's labs. AST went up to 199, ALT went up to 146 and alkaline phosphatase is 172. She denies any symptoms. No abdominal pain. No nausea, vomiting. In fact, her breathing is much better. PHYSICAL EXAMINATION: She appears comfortable. No apparent distress. Vital signs are stable. Blood pressure is 151/77, pulse rate 85, temperature 97.7. HEENT examination unremarkable. Conjunctivae pink, sclerae anicteric. Oral cavity no lesions. NECK: No JVD or lymph node enlargement. CHEST: Clear to auscultation. HEART: Regular rate and rhythm. ABDOMEN: Soft. Bowel sounds are positive. No organomegaly. EXTREMITIES: No pedal edema. NEURO: She is alert and oriented x3. No focal deficits. LABS: From today AST and ALT 199 and 146 respectively. Yesterday it was 130 and 126 respectively. T bilirubin is normal. IMPRESSION: 1. Elevated serum transaminases which are gradually increasing during this hospitalization which were normal at the time of admission to the hospital, most likely medication induced hepatitis. On review of all her medications, the only medication that is new for her is antibiotics that she is receiving for pneumonia which appears to be the most likely cause for transaminitis. Hepatitis serologies for A, B, and C were requested and results are not available. 2. Pneumonia, on broad-spectrum antibiotics. 3. History of total gastrectomy for peptic ulcer disease in the past. 4. Hypothyroidism. 5. History of anxiety, depression. RECOMMENDATIONS: Since the patient is asymptomatic, at this time we will continue to monitor her LFTs closely. If her serum transaminases continue to increase, will have to consider changing her antibiotics. Repeat LFTs in the morning and will follow with you closely. Thank you for this consultation. MMODL / IJN: [id number] /
[2019-10-15 15:28] VITALS: BP 115/72; PULSE 112; RESP 18; TEMP 98.3
--- NOTE | 2019-10-15 16:01 | P.DS ---
Providers Date of admission: 10/05/19 18:48 Expected date of discharge: 10/15/19 Attending physician: Palmer Desir Consults: 10/05/19 18:48 Consult Physician Stat Consulting Provider: Garry Sanchez Consult Reason/Comments: Pneumonia Do you want consulting provider notified?: Yes 10/06/19 12:40 Consult Physician Routine Consulting Provider: Candido Lara Consult Reason/Comments: severe headache Do you want consulting provider notified?: Yes 10/07/19 14:00 Consult to Anesthesia Routine Consulting Provider: Anesthesia,Services Consult Reason/Comments: occipital block 10/08/19 13:38 Consult Physician Routine Consulting Provider: Jas Gregorio Consult Reason/Comments: RUL pneumonia Do you want consulting provider notified?: Yes 10/09/19 12:10 Consult Physician Routine Consulting Provider: Nohelia Long Consult Reason/Comments: ckd Do you want consulting provider notified?: Yes 10/14/19 13:40 Consult Physician Routine Consulting Provider: Jolene Whtie Consult Reason/Comments: elevated liver enzymes Do you want consulting provider notified?: Yes Primary care physician: Ale Eli [facility] Course: Diagnoses on discharge: 1. Right upper lobe infiltrate suggestive of pneumonia, with worsening x-ray, infectious disease consultation requested 2. Headache and neck pain, cause is unclear could be related to degenerative disc disease, computed tomography scan of the head and cervical spine nonrevealing, neurology consultation is requested, neurology are recommending occipital block Will consult anesthesia 3. Underlying history of chronic kidney disease, monitoring kidney function closely 4. Recent history of fall with hip fracture requiring surgery 5. Remote history of TIA 6. History of migraine headache 7. History of weight loss maintained on Marinol 8. Chronic back pain maintained on fentanyl patch 9. Underlying history of depression with anxiety disorder 10. For DVT prophylaxis we will use [facility] course: Louise dennis is a 74-year-old female who presented to [facility] emergency room with a chief complaint of headache and neck pain she was evaluated in emergency room, computed tomography scan of the brain and cervical spine did not reveal any significant abnormality, chest x-ray was positive for right upper lobe infiltrate, she was started on IV antibiotics and was admitted to medical floor, pulmonary consultation was requested. Patient denies any fever or chills she has occasional cough, she has shortness of breath, but this is a long-term complaint for her that is not changed from her baseline. Patient stated that she has history of asthma. She denies ever smoking. She stated that she has been losing weight recently. On 10/07/2019 patient was seen and examined on the medical floor there is no fever or chills no dizziness no chest pain no shortness of breath she has occasional cough no nausea or vomiting no abdominal pain no diarrhea no burning was urination no frequency or urgency and no hematuria, she is still complaining of headache and neck pain On 10/08/2019 patient was seen and examined on the medical floor, she is alert and oriented 3 in no apparent distress, she is complaining of neck pain, she has occasional cough without sputum production, otherwise she denies any complaints, there is no fever or chills no headache or dizziness no chest pain no shortness of breath no nausea or vomiting no abdominal pain no diarrhea no burning was urination no frequency or urgency no hematuria chest x-ray revealing worsening right upper lobe infiltrate On 10/09/2019 patient was seen and examined on the medical floor she is alert and oriented 3 she is complaining of severe pain in her neck, actually she is crying was pain at this time, she has fentanyl patch 100 g every 72 hours she had a new patch put on today, she also has [place], Fioricet, and Imitrex ordered for headache, there is a consult for anesthesia for possible injection in the neck, hopefully she will be seen by them tomorrow. At this time patient is requesting something more for pain Will order Dilaudid 0.5 mg when necessary. Otherwise she denies any complaints there is no fever or chills no headache or dizziness no chest pain no shortness of breath no cough no nausea or vomiting no abdominal pain no diarrhea no burning was urination no frequency or urgency no hematuria. On 10/10/2019 patient was seen and examined on the medical floor she is alert and oriented 3 in no apparent distress she is still complaining of neck pain otherwise she denies any complaints there is no fever or chills no headache or dizziness no chest pain no shortness of breath no cough no nausea or vomiting no abdominal pain no diarrhea no burning with urination no frequency or urgency and no hematuria chest x-rays revealing worsening infiltrate liver enzymes are elevated with check liver ultrasound awaiting further input from pulmonary awaiting intervention by anesthesia for neck pain On 10/11/2019 patient was seen and examined on the medical floor she is alert and oriented 3 in no apparent distress there is no fever or chills no headache or dizziness no chest pain no shortness of breath no cough no nausea or vomiting no abdominal pain no diarrhea no burning was urination no frequency or urgency and no hematoma. Main complaints for patient is neck pain she is scheduled for epidural injection today. On 10/12/2019 patient was seen and examined on the medical floor she is complaining of headache and neck pain otherwise she denies any complaints there is no fever or chills no headache or dizziness no chest pain no shortness of breath no cough no nausea or vomiting no abdominal pain no diarrhea no burning with urination no frequency or urgency no hematuria, patient has left upper lobe pneumonia, no significant improvement on chest x-ray pulmonary following continue with current antibiotics. On 10/13/2019 patient was seen and examined on the medical floor, she is feeling better, still complaining of cough and neck pain otherwise she denies any complaints. she underwent bronchoscopy today with Dr Womack. On 10/14/2019 patient was seen and examined on the medical floor she is alert and oriented 3 in no apparent distress she is still complaining of neck pain and occasional cough otherwise she denies any complaints there is no fever or chills no headache or dizziness no chest pain no shortness of breath no nausea or vomiting no abdominal pain no diarrhea no blood in the stools no burning with urination no frequency or urgency and no hematuria. On 10/15/2019 patient was seen and examined on the medical floor she is feeling better she was evaluated by pulmonary and was cleared for discharge, liver enzymes are elevated and are a bit higher today than yesterday, liver ultrasound was reviewed and consultation was Dr. Sandoval was reviewed, patient was really very eager to go home and she thinks that her liver enzymes are elevated because of the IV antibiotics, she is not on any new medications at this time, patient will be discharged home she was instructed to follow-up with her primary care physician within 3-4 days to have her liver enzymes rechecked Patient Condition at Discharge: Stable Plan - Discharge Summary New Discharge Prescriptions: New Butalb/APAP/Caff 50-325-40Mg [Fioricet 50-325-40] 1 each PO Q4HR PRN tab PRN Reason: Headache Cefdinir [Omnicef] 300 mg PO Q12HR 10 Days #20 capsule Butalb/APAP/Caff 50-325-40Mg [Fioricet 50-325-40] 1 tab PO Q4H PRN #30 tablet PRN Reason: Headache Continue DULoxetine HCL [Cymbalta] 60 mg PO DAILY Folic Acid 1 mg PO DAILY@1200 #1 tablet Thiamine [Vitamin B-1] 100 mg PO DAILY@1200 #1 tablet fentaNYL 100MCG/HR PATCH [Duragesic 100MCG/HR] 1 patch TRANSDERM Q72H SUMAtriptan SUCCINATE [Imitrex] 50 mg PO DAILY PRN PRN Reason: Migraine Headache buPROPion HCL [Wellbutrin XL] 300 mg PO DAILY Furosemide [Lasix] 20 mg PO DAILY Ferrous Sulfate [Iron (65 MG Elemental)] 650 mg PO DAILY Cyanocobalamin [Vitamin B-12 Injection] 1,000 mcg SQ [id number] busPIRone HCL 30 mg PO BID Levocetirizine Dihydrochloride [Xyzal] 5 mg PO HS Mirtazapine [Remeron Soluspan] 60 mg PO HS Potassium Chloride ER [K-Dur 10] 30 meq PO DAILY Calcium/Magnesium 250mg/300mg 1 tab PO DAILY Calcitriol 1 mcg PO MOWEFR Ergocalciferol [Vitamin D2 (DRISDOL)] 50,000 units PO QMONTH hydrOXYzine PAMOATE [Vistaril] 50 mg PO TID PRN PRN Reason: Anxiety Levothyroxine Sodium [Synthroid] 88 mcg PO DAILY Metolazone [Zaroxolyn] 2.5 mg PO Q48H Dronabinol [Marinol] 5 mg PO QID Albuterol Inhaler [Ventolin Hfa Inhaler] 1 puff INHALATION RT-Q6H PRN PRN Reason: Shortness Of Breath Omeprazole [PriLOSEC] 20 mg PO BID Cholestyramine (with Sugar) [Cholestyramine Packet] 4 gm PO BID Discontinued HYDROcodone/APAP 5-325MG [[place] 5-325] 1 - 2 tab PO TID PRN PRN Reason: Pain Discharge Medication List DULoxetine HCL [Cymbalta] 60 mg PO DAILY 09/17/13 [History] Folic Acid 1 mg PO DAILY@1200 #1 tablet 12/30/14 [Rx] Thiamine [Vitamin B-1] 100 mg PO DAILY@1200 #1 tablet 04/18/14 [Rx] fentaNYL 100MCG/HR PATCH [Duragesic 100MCG/HR] 1 patch TRANSDERM Q72H 04/10/15 [History] Cyanocobalamin [Vitamin B-12 Injection] 1,000 mcg SQ [id number] 11/06/15 [History] Ferrous Sulfate [Iron (65 MG Elemental)] 650 mg PO DAILY 11/06/15 [History] Furosemide [Lasix] 20 mg PO DAILY 11/06/15 [History] SUMAtriptan SUCCINATE [Imitrex] 50 mg PO DAILY PRN 11/06/15 [History] buPROPion HCL [Wellbutrin XL] 300 mg PO DAILY 11/06/15 [History] busPIRone HCL 30 mg PO BID 11/06/15 [History] Levocetirizine Dihydrochloride [Xyzal] 5 mg PO HS 05/31/17 [History] Mirtazapine [Remeron Soluspan] 60 mg PO HS 05/31/17 [History] Potassium Chloride ER [K-Dur 10] 30 meq PO DAILY 04/01/19 [History] Calcitriol 1 mcg PO MOWEFR 06/07/19 [History] Calcium/Magnesium 250mg/300mg 1 tab PO DAILY 06/07/19 [History] Dronabinol [Marinol] 5 mg PO QID 06/07/19 [History] Ergocalciferol [Vitamin D2 (DRISDOL)] 50,000 units PO QMONTH 06/07/19 [History] Levothyroxine Sodium [Synthroid] 88 mcg PO DAILY 06/07/19 [History] Metolazone [Zaroxolyn] 2.5 mg PO Q48H 06/07/19 [History] hydrOXYzine PAMOATE [Vistaril] 50 mg PO TID PRN 06/07/19 [History] Albuterol Inhaler [Ventolin Hfa Inhaler] 1 puff INHALATION RT-Q6H PRN 10/05/19 [History] Cholestyramine (with Sugar) [Cholestyramine Packet] 4 gm PO BID 10/05/19 [History] Omeprazole [PriLOSEC] 20 mg PO BID 10/05/19 [History] Butalb/APAP/Caff 50-325-40Mg [Fioricet 50-325-40] 1 each PO Q4HR PRN tab 10/15/19 [Rx] Butalb/APAP/Caff 50-325-40Mg [Fioricet 50-325-40] 1 tab PO Q4H PRN #30 tablet 10/15/19 [Rx] Cefdinir [Omnicef] 300 mg PO Q12HR 10 Days #20 capsule 10/15/19 [Rx] Follow up Appointment(s)/Referral(s): Ale Eli MD [Primary Care Provider] - 1-2 days [facility] [NON-STAFF] - 2 Weeks Geovanny Womack MD [STAFF PHYSICIAN] - 1 Week Patient Instructions/Handouts: Community Acquired Pneumonia (DC)
--- NOTE | 2019-10-15 16:06 | PN ---
PROGRESS NOTE DATE OF SERVICE: 10/15/2019 REASON FOR FOLLOWUP: Possible aspiration pneumonia. INTERVAL HISTORY: The patient is currently afebrile. The patient is breathing comfortably. Denies having any chest pain or shortness of breath. No cough. No nausea, no vomiting. No abdominal pain, no diarrhea. PHYSICAL EXAMINATION: Blood pressure 133/73 with a pulse of 71, temperature 97.9. She is 98% on room air. General description is an elderly female lying in bed in no distress. Respiratory system: Unlabored breathing, clear to auscultation anteriorly. Heart S1, S2. Regular rate and rhythm. Abdomen soft, no tenderness. LABS: Hemoglobin 11.1, white count 9.4. Bronchoscopy culture so far negative. DIAGNOSTIC IMPRESSION AND PLAN: Patient with right upper lobe pneumonia, concern for possible aspiration etiology. Overall improvement on Zosyn. Finish therapy with oral Augmentin 875 b.i.d. for about a week and close outpatient followup. MMODL / IJN: [id number] /
[2019-10-15 18:13] LABS: Hepatitis A Antibody IgM Non-Reactive (Non-Reactive); Hepatitis B Core IgM Non-Reactive (Non-Reactive); Hepatitis B Surface Antigen Non-Reactive (Non-Reactive); Hepatitis C IgG Antibody Non-Reactive (Non-Reactive)
[2019-10-19] MEDS ORDERED: CYANOCOBALAMIN 1,000 MCG/ML 1 ML VIAL SQ SCH (09:00)
== END 2019-10-15 16:08 | disposition home or self-care (01) | DRG 194 ==
LOC: EC 16:45 → 4SSUR 18:48
PROVIDERS: ADMIT Internal Medicine; ATTEND Internal Medicine
PROC: 0B9C8ZX Drainage of Right Upper Lung Lobe, Via Natural or Artificial Opening Endoscopic, Diagnostic (ICD-10-PCS; principal; 2019-10-13 07:30)
PROC: 3E0T3BZ Introduction of Anesthetic Agent into Peripheral Nerves and Plexi, Percutaneous Approach (ICD-10-PCS; principal; 2019-10-13 07:30)
DX: J18.9 Pneumonia, unspecified organism (principal); J44.0 Chronic obstructive pulmonary disease with (acute) lower respiratory infection; J45.901 Unspecified asthma with (acute) exacerbation; N17.9 Acute kidney failure, unspecified; N18.4 Chronic kidney disease, stage 4 (severe); E44.0 Moderate protein-calorie malnutrition; Z68.1 Body mass index [BMI] 19.9 or less, adult; G45.9 Transient cerebral ischemic attack, unspecified; I12.9 Hypertensive chronic kidney disease with stage 1 through stage 4 chronic kidney disease, or unspecified chronic kidney disease; I51.7 Cardiomegaly; K21.9 Gastro-esophageal reflux disease without esophagitis; Z87.11 Personal history of peptic ulcer disease; Z20.828 Contact with and (suspected) exposure to other viral communicable diseases; Z90.3 Acquired absence of stomach [part of]; K76.0 Fatty (change of) liver, not elsewhere classified; K71.6 Toxic liver disease with hepatitis, not elsewhere classified; T36.95XA Adverse effect of unspecified systemic antibiotic, initial encounter; L29.9 Pruritus, unspecified; M19.90 Unspecified osteoarthritis, unspecified site; M47.812 Spondylosis without myelopathy or radiculopathy, cervical region; M54.81 Occipital neuralgia; M89.8X9 Other specified disorders of bone, unspecified site; S72.009D Fracture of unspecified part of neck of unspecified femur, subsequent encounter for closed fracture with routine healing; W19.XXXD Unspecified fall, subsequent encounter; G89.29 Other chronic pain; M54.9 Dorsalgia, unspecified; G43.909 Migraine, unspecified, not intractable, without status migrainosus; E03.9 Hypothyroidism, unspecified; E78.5 Hyperlipidemia, unspecified; E86.0 Dehydration; F32.9 Major depressive disorder, single episode, unspecified; F41.0 Panic disorder [episodic paroxysmal anxiety]; M43.12 Spondylolisthesis, cervical region; Z79.01 Long term (current) use of anticoagulants; Z79.890 Hormone replacement therapy; Z79.891 Long term (current) use of opiate analgesic; Z79.899 Other long term (current) drug therapy; Z80.41 Family history of malignant neoplasm of ovary; Z80.51 Family history of malignant neoplasm of kidney; Z82.49 Family history of ischemic heart disease and other diseases of the circulatory system; Z86.718 Personal history of other venous thrombosis and embolism; Z86.73 Personal history of transient ischemic attack (TIA), and cerebral infarction without residual deficits; Z87.891 Personal history of nicotine dependence; Z96.649 Presence of unspecified artificial hip joint; R62.7 Adult failure to thrive; M19.91 Primary osteoarthritis, unspecified site; Z88.7 Allergy status to serum and vaccine
CPT/HCPCS: 31624; 36415; 64405; 70450; 71045; 71046; 71250; 72125; 76705; 80048; 80053; 80074; 83605; 83735; 84100; 85025; 85610; 85652; 85730; 86140; 87040; 87070; 87102; 87116; 87205; 87206; 87252; 87496; 87498; 87502; 87529; 87634; 87798; 88108; 88305; 93005; 94640; 96361; 96365; 96367; 96375; 99285

== ENCOUNTER → 2019-10-27 | Outpatient (CLI) | payer MEDICARE, OTHER ==
--- NOTE | 2019-10-27 15:32 | P.PAINPG ---
Subjective Progress Note Date: 10/27/19 This is a 74 years old female, with a history of severe neck pain and headache , she is diagnosed with bilateral occipital neuralgia and cervical spondylosis and migraine headache, she was seen previously as an inpatient, and we did bilateral occipital nerve block and she gets excellent pain relief, currently she is complaining of severe neck pain and headache and the neck pain and headache, increased with any neck movement is not radiated to the upper extremity patient denies any motor or sensory deficit, she denies any fever or night sweats, she is currently on Fioricet Cymbalta and fentanyl patch 100 g, and Imitrex 50 mg daily when necessary, and she continued to have severe neck pain and headache Objective - Vital Signs Vital signs: Vital Signs Temp Pulse 88 10/27/19 14:47 Resp 18 10/27/19 14:47 BP 154/77 10/27/19 14:47 Pulse Ox 100 10/27/19 14:47 Intake & Output 10/26/19 10/27/19 10/27/19 18:59 06:59 18:59 Weight 38.102 kg - Exam Physical Examinations : -Constitutiona : Cooperative , not in acute distress . -HEENT : nech : supple , no Lymphadenopathy , normal thyroid size . : eyes : no ptosis , no icterus, no photophobia . : ENT : normal of hearing , normal oropharynx , no Thrush . - Respiratory : Chest clear to auscultations Bilaterally , no wheezing , no Rhonchi . - Cardiovascula : regular rate and rhythem , S1 , S2 , no S3 , no S4. - Gastrointestina : abdomen soft no tenderness , bowel sounds , no organomegally . - Genitourinary : Defferred . - neurologic : Cranial nerve II to XII intact , no focal neurological deffecit . -psychatric : alert , oriented X 3 , appropriate affect , intact judgment and insight . -Lymphatic : no Lymphadenopathy . - musculoskeltal : Cervical Spine motor stregnth in the deltoid and biceps, normal right side , normal Left side motor stregnth biceps and the wrist extensors normal right side ,normal left side . motor stregnth in the triceps muscle . normal Right side , normal Left side deep tendon reflexes normal at the biceps , normal at Brachioradialis , normal at triceps. cervical facet loading test= Positive Bilaterally Spurling test= negative bilaterally. Neck distraction test= negative bilaterally. Agustin sign= negative bilaterally Severe tenderness over the occipital nerve bilaterally Lumber spine moter stegnth lower extremities ,thigh and legs 5/5 Right side , 5/5 Left side Computed tomography scan of the cervical spine cervical anterolisthesis and foraminal stenosis and facet degeneration Assessment and Plan Plan: Assessment and plan=1-occipital neuralgia. 2-cervical spondylosis and cervical facet arthropathy Patient could benefit from repeat bilateral occipital nerve block . If patient continued to have pain after the second occipital nerve block, we will consider doing diagnostic medial branch block cervical area Description for Fioricet when necessary given Time with Patient: Less than 30 PQRS Measure Charge Sheet Measure #130: Documentation of Current Meds in Medical Chart: Patient's medications documented in chart Measure #226: Tobacco Use: Screen & Cessation Intervention: Pt not a tobacco user Measure #111: Pneumonia Vaccination: Pneumococcal vaccine administered or previously received Measure #47: Advance Care Plan: Advance care planning discussed & documented, pt chose/unable to give Measure #412: Opioid Treatment Agreement: No documentation of signed opioid treatment agreement Measure #408: Opioid Therapy Follow-up Evaluation: Patient had NO f/u eval minimum every 3 months during opioid therapy Measure #317: Preventitive Care & Scrn High Bld Press & F/U: Pre-hypertensive or hypertensive BP documented, pt will f/u with PCP Measure #128: Body Mass Index (BMI) Screening & Follow-up: BMI documented BELOW normal parameters - f/u documented Measure #131: Pain Assessment & Follow-up: Pain positive & plan documented, Follow-up scheduled Measure #431: Unhealthy Alcohol Use Preventative Care & Scrn: Patient not identified as an unhealthy alcohol user PQRS Narrative: Smoking Status Never smoker Blood Pressure 154/77 Pain Intensity [Neck] 9 Scale Used Numeric (1 - 10) Hx Alcohol Use (MH) No Home Medications: Ambulatory Orders DULoxetine HCL [Cymbalta] 60 mg PO DAILY 09/17/13 Folic Acid 1 mg PO DAILY@1200 #1 tablet 04/18/14 Thiamine [Vitamin B-1] 100 mg PO DAILY@1200 #1 tablet 04/18/14 fentaNYL 100MCG/HR PATCH [Duragesic 100MCG/HR] 1 patch TRANSDERM Q72H 04/10/15 Cyanocobalamin [Vitamin B-12 Injection] 1,000 mcg SQ [id number] 11/06/15 Ferrous Sulfate [Iron (65 MG Elemental)] 650 mg PO DAILY 11/06/15 Furosemide [Lasix] 20 mg PO DAILY 11/06/15 SUMAtriptan SUCCINATE [Imitrex] 50 mg PO DAILY PRN 11/06/15 buPROPion HCL [Wellbutrin XL] 300 mg PO DAILY 11/06/15 busPIRone HCL 30 mg PO BID 11/06/15 Levocetirizine Dihydrochloride [Xyzal] 5 mg PO HS 05/31/17 Mirtazapine [Remeron Soluspan] 60 mg PO HS 05/31/17 Potassium Chloride ER [K-Dur 10] 30 meq PO DAILY 04/01/19 Calcitriol 1 mcg PO MOWEFR 06/07/19 Calcium/Magnesium 250mg/300mg 1 tab PO DAILY 06/07/19 Dronabinol [Marinol] 5 mg PO QID 06/07/19 Ergocalciferol [Vitamin D2 (DRISDOL)] 50,000 units PO QMONTH 06/07/19 Levothyroxine Sodium [Synthroid] 88 mcg PO DAILY 06/07/19 Metolazone [Zaroxolyn] 2.5 mg PO Q48H 06/07/19 hydrOXYzine PAMOATE [Vistaril] 50 mg PO TID PRN 06/07/19 Albuterol Inhaler [Ventolin Hfa Inhaler] 1 puff INHALATION RT-Q6H PRN 10/05/19 Cholestyramine (with Sugar) [Cholestyramine Packet] 4 gm PO BID 10/05/19 Omeprazole [PriLOSEC] 20 mg PO BID 10/05/19 Butalb/APAP/Caff 50-325-40Mg [Fioricet 50-325-40] 1 each PO Q4HR PRN tab 10/15/19 Butalb/APAP/Caff 50-325-40Mg [Fioricet 50-325-40] 1 tab PO Q4H PRN #30 tablet 10/15/19 Cefdinir [Omnicef] 300 mg PO Q12HR 10 Days #20 capsule 10/15/19 Controlled Substance Measures - Controlled Substance Measures Is patient prescribed a controlled substance at discharge?: No
[2019-10-28 10:16] VITALS: BP 154/77; PULSE 88; RESP 18
== END | disposition home or self-care (01) ==
LOC: PNWHC3 14:06
PROVIDERS: ATTEND Specialist
DX: G89.29 Other chronic pain (principal); M54.81 Occipital neuralgia; M47.812 Spondylosis without myelopathy or radiculopathy, cervical region; G43.909 Migraine, unspecified, not intractable, without status migrainosus; Z79.2 Long term (current) use of antibiotics; Z79.899 Other long term (current) drug therapy
CPT/HCPCS: 99201

== ENCOUNTER 2019-11-01 06:15 | Day surgery (SDC) | payer MEDICARE, OTHER ==
[2019-11-01] MEDS ORDERED: LIDOCAINE 1% (10MG/ML) FOR IV START INTRADERMA ONE (06:35)
[2019-11-01] MEDS ORDERED: LACTATED RINGERS 1,000 ML IV ONE (06:35)
[2019-11-01 06:44] VITALS: RESP 16; TEMP 96.9
[2019-11-01] MEDS ORDERED: methylPREDNISolone ACETATE 40 MG/ML 1 ML VIAL ONE (06:49)
[2019-11-01] MEDS ORDERED: ROPIVACAINE 5MG/ML 20ML VIAL ONE (06:49)
[2019-11-01] MEDS ORDERED: MIDAZOLAM 2 MG/2 ML VIAL ONE (06:49)
--- NOTE | 2019-11-01 07:05 | P.PCN ---
Date of Procedure: 11/01/19 Procedure(s) Performed: Preoperative diagnoses= 1- bilateral Greater occipital neuralgia Postoperative diagnoses= same as preoperative diagnosis. Procedure= Bilateral Greater occipital nerve block Anesthesia= moderate sedation with Versed 1 mg . Estimated blood loss=minimal. Procedure indication= the patient had a history of severe chronic neck pain ,and headache, diagnosed with occipital neuralgia exam was positive for severe tenderness over the occipital nerve bilaterally, she will be a good candidate occipital nerve block, patient failed conservative management Procedure description= the patient was seen and identified in the preoperative holding area, risks and benefits and alternative of the procedure and possible complications discussed with the patient, and he agreed with the preceding, patient signed the consent, an IV was started, and vital signs were monitored and were stable throughout the procedure, patient was placed in the sitting position or table and the neck area was prepped and draped with a sterile fashion, vital signs were closely monitored during the procedure, 25-gauge needle advanced 1 inch lateral to the occipital protuberance on the right side, at the location of the right occipital nerve , then after negative aspiration for heme and CSF and there was no paresthesia during the injection, 5 ml of Robivacaine 0.5% and 20 mg of Depo-medrol injected after negative aspiration, the needle removed, and the entire same procedure was repeated for the left Greater occipital nerve. Patient tolerated the procedure well without any complication, The patient returned to supine position after the back was cleaned and a Band- Aid applied, the patient transported to recovery room in stable condition and he was monitored for 30 minutes before he was discharged home and then patient was reexamined before going home and patient was discharged in stable condition and patient will follow up with the pain clinic in a few weeks.
[2019-11-01] MEDS ORDERED: IV FLUID CONTINUATION 1,000 ML IV ONE (07:09)
[2019-11-01 07:32] VITALS: BP 124/67; PULSE 85
== END 2019-11-01 07:48 | disposition home or self-care (01) ==
LOC: ORPAIN 06:15
PROVIDERS: ATTEND Specialist
DX: G89.29 Other chronic pain (principal); M54.81 Occipital neuralgia; M47.812 Spondylosis without myelopathy or radiculopathy, cervical region; Z88.8 Allergy status to other drugs, medicaments and biological substances
CPT/HCPCS: 64405; J2250; J1030; J2795

== ENCOUNTER → 2019-11-15 | Outpatient (CLI) | payer MEDICARE, OTHER ==
[2019-11-15 13:50] VITALS: BP 164/90; PULSE 106; RESP 16; TEMP 97.9
--- NOTE | 2019-11-15 14:12 | P.PAINPG ---
Subjective Progress Note Date: 11/15/19 This is a 74 years old female, with a history of severe neck pain and headache , she is diagnosed with bilateral occipital neuralgia and cervical spondylosis and migraine headache, she underwent bilateral occipital nerve blocks on 11/01/2019.she returns today for follow-up. She reports only of about 24 hours of pain relief following that procedure. Today, her pain is located in the bilateral neck, right greater than left, radiating to base of skull and top of head. Pain is associated with nausea, rated as 8/10. patient denies any motor or sensory deficit, she denies any fever or night sweats, she is currently on Fioricet Cymbalta and fentanyl patch 100 g, and Imitrex 50 mg daily when necessary, Review of systems is negative for chest pain, shortness of breath, new onset weakness, numbness/tingling, abdominal pain, malaise, fever, night sweats, chills, homicidal or suicidal ideation, or bowel or bladder incontinence. Objective Physical exam: Vitals: Reviewed in EMR GENERAL: Malnourished, in no acute distress PSYCH: Mood and affect is appropriate. Awake, alert, and oriented SKIN: Skin color, texture, turgor normal, no rashes or lesions HEENT: Normocephalic, atraumatic. EOM intact CV: No pedal edema RESP: Respirations are unlabored, no audible wheezing GI: Abdomen non-distended MUSCULOSKELETAL: Bilateral upper extremity strength is normal and symmetric. No atrophy or tone abnormalities are noted. Neck: Tenderness to palpation over the cervical paraspinous muscles bilaterally. Spurling negative, cervical facet loading positive, Dunn's sign negative. Pain limited cervical spine range of motion in flexion, extension and lateral rotation Extremities: Peripheral joint ROM is full and pain free without obvious instability or laxity in all four extremities. No edema or skin discolorations noted. NEUR: Bilateral upper extremity coordination and muscle stretch reflexes are physiologic and symmetric. No loss of sensation is noted. Imaging: Computed tomography scan of the cervical spine done at [facility] on 10/05/2019 shows cervical anterolisthesis and foraminal stenosis and facet degeneration at multiple levels. Assessment and Plan Plan: Assessment and plan=1-occipital neuralgia. 2-cervical spondylosis and cervical facet arthropathy Patient had minimal benefit from bilateral occipital nerve block . We will schedule her for diagnostic medial branch block cervical areathird occipital nerve, C3, C4 for facets C2-3 and C3-4 2. If good benefit from this, she will likely benefit from radiofrequency ablation prescription for Fioricet when necessary was refilled today PQRS Measure Charge Sheet Measure #130: Documentation of Current Meds in Medical Chart: Patient's medications documented in chart Measure #226: Tobacco Use: Screen & Cessation Intervention: Pt not a tobacco user Measure #111: Pneumonia Vaccination: Pneumococcal vaccine administered or previously received Measure #47: Advance Care Plan: Advance care planning discussed & documented, pt chose/unable to give Measure #412: Opioid Treatment Agreement: No documentation of signed opioid treatment agreement Measure #408: Opioid Therapy Follow-up Evaluation: Patient had NO f/u eval minimum every 3 months during opioid therapy Measure #317: Preventitive Care & Scrn High Bld Press & F/U: Pre-hypertensive or hypertensive BP documented, pt will f/u with PCP Measure #128: Body Mass Index (BMI) Screening & Follow-up: BMI documented BELOW normal parameters - f/u documented Measure #131: Pain Assessment & Follow-up: Pain positive & plan documented, Follow-up scheduled Measure #431: Unhealthy Alcohol Use Preventative Care & Scrn: Patient not identified as an unhealthy alcohol user PQRS Narrative: Smoking Status Never smoker Pain Intensity [Neck] 9 Scale Used Numeric (1 - 10) Hx Alcohol Use (MH) No Home Medications: Ambulatory Orders DULoxetine HCL [Cymbalta] 60 mg PO DAILY 09/17/13 Folic Acid 1 mg PO DAILY@1200 #1 tablet 04/18/14 Thiamine [Vitamin B-1] 100 mg PO DAILY@1200 #1 tablet 04/18/14 fentaNYL 100MCG/HR PATCH [Duragesic 100MCG/HR] 1 patch TRANSDERM Q72H 04/10/15 Cyanocobalamin [Vitamin B-12 Injection] 1,000 mcg SQ [id number] 11/06/15 Ferrous Sulfate [Iron (65 MG Elemental)] 650 mg PO DAILY 11/06/15 Furosemide [Lasix] 20 mg PO DAILY 11/06/15 SUMAtriptan succinate [Imitrex] 50 mg PO DAILY PRN 11/06/15 buPROPion HCL [Wellbutrin XL] 300 mg PO DAILY 11/06/15 busPIRone HCL 30 mg PO BID 11/06/15 Levocetirizine Dihydrochloride [Xyzal] 5 mg PO HS 05/31/17 Mirtazapine [Remeron Soluspan] 60 mg PO HS 05/31/17 Potassium Chloride ER [K-Dur 10] 30 meq PO DAILY 04/01/19 Calcium/Magnesium 250mg/300mg 1 tab PO DAILY 06/07/19 Ergocalciferol [Vitamin D2 (DRISDOL)] 50,000 units PO QMONTH 06/07/19 Levothyroxine Sodium [Synthroid] 88 mcg PO DAILY 06/07/19 calcitrioL [Calcitriol] 1 mcg PO MOWEFR 06/07/19 dronabinoL [Marinol] 5 mg PO QID 06/07/19 hydrOXYzine pamoate [Vistaril] 50 mg PO TID PRN 06/07/19 metOLazone [Zaroxolyn] 2.5 mg PO Q48H 06/07/19 Albuterol Inhaler [Ventolin Hfa Inhaler] 1 puff INHALATION RT-Q6H PRN 10/05/19 Cholestyramine (with Sugar) [Cholestyramine Packet] 4 gm PO BID 10/05/19 Omeprazole [PriLOSEC] 20 mg PO DAILY 10/05/19 Butalb/APAP/Caff 50-325-40Mg [Fioricet 50-325-40] 1 each PO Q4HR PRN tab 10/15/19 HYDROcodone/APAP 5-325MG [[place] 5-325] 1 tab PO TID PRN 11/01/19 Butalb/APAP/Caff 50-325-40Mg [Fioricet 50-325-40] 1 tab PO Q4H PRN #30 tablet 11/15/19 Controlled Substance Measures - Controlled Substance Measures Is patient prescribed a controlled substance at discharge?: No
== END ==
LOC: PNWHC3 13:06
PROVIDERS: ATTEND Anesthesiology
DX: M54.81 Occipital neuralgia (principal); M47.812 Spondylosis without myelopathy or radiculopathy, cervical region; M47.892 Other spondylosis, cervical region; Z79.899 Other long term (current) drug therapy; Z79.890 Hormone replacement therapy; Z79.51 Long term (current) use of inhaled steroids; Z79.891 Long term (current) use of opiate analgesic
CPT/HCPCS: 99211

== ENCOUNTER 2019-12-06 09:50 | Day surgery (SDC) | payer MEDICARE, OTHER ==
[2019-12-02 09:05] VITALS: BMI 14.6
[2019-12-06 11:16] VITALS: TEMP 98.2
[2019-12-06] MEDS ORDERED: LACTATED RINGERS 1,000 ML IV ONE (11:22)
[2019-12-06] MEDS ORDERED: IOPAMIDOL M200 10 ML VIAL ONE (11:32)
[2019-12-06] MEDS ORDERED: MIDAZOLAM 2 MG/2 ML VIAL ONE (11:32)
[2019-12-06] MEDS ORDERED: IV FLUID CONTINUATION 800 ML IV ONE (12:04)
[2019-12-06] MEDS ORDERED: LACTATED RINGERS 1,000 ML IV SCH (12:09)
--- NOTE | 2019-12-06 12:19 | FL ---
EXAMINATION TYPE: FL guided pain mgmt statistic DATE OF EXAM: 12/06/2019 HISTORY: Fluoroscopy time 36 seconds of fluoroscopy provided. IMPRESSION: 1. Fluoroscopy time.
[2019-12-06 12:22] VITALS: BP 159/88; PULSE 85; RESP 16
--- NOTE | 2019-12-06 14:33 | P.PCN ---
Date of Procedure: 12/06/19 Description of Procedure: PREOPERATIVE DIAGNOSIS : Cervicalgia with Facet Arthropathy without myelopathy POSTOPERATIVE DIAGNOSIS: same PROCEDURE: First Diagnostic cervical medial branch block with fluoroscopy at TON, C3, C4 [bilateral] which covers facets C2-C3 and C3-C4 ANESTHESIA: Local anesthetic; moderate IV sedation with Versed, sedation time 20 minutes Fluoroscopy was used for the procedure and images were saved in the radiology portion of the chart. Surgeon: Dexter Chatman MD PROCEDURE INDICATION: Cervical pain without radiculopathy, not responsive to conservative management. PROCEDURE DESCRIPTION: the patient was seen and identified in the preop holding area , risks and benefits and possible complications of the procedure and alternatives were discussed with the patient, and the patient agreed to proceed with the procedure and signed the consent . IV was started , vital signs were monitored during the procedure and fluoroscopy was used to maximize the benefit and accuracy of the needle placement, and sedation was given to decrease patient anxiety. Patient was taken to the procedure room and placed in prone position. An AP fluoroscopic product developer film was taken to identify the dens, the C2, C3, C4 vertebral bodies, and the waists of the articular pillars at the aforementioned levels. A pillar (caudal tilt) view was utilized to highlight the waists of the articular pillars at these levels. The skin was prepped with chlorhexidine and draped in the usual sterile fashion. The skin and subcutaneous tissue overlying the above levels were anesthetized using a 25-gauge 1-1/2-inch needle with 1% preservative free lidocaine for a total volume of 1 ml per level. An AP fluoroscopic product developer film was taken to identify the dens, the C2, C3, C4 vertebral bodies, and the waists of the articular pillars at the aforementioned levels levels. A pillar (caudal tilt) view was utilized to highlight the waists of the articular pillars at these levels. The skin was prepped with chlorhexidine and draped in the usual sterile fashion. The skin and subcutaneous tissue overlying the above levels were anesthetized using a 25-gauge 1-1/2-inch needle with 1% preservative free lidocaine for a total volume of 1 ml per level. An 25-gauge 3.5" Quinke needle was advanced, coaxially, in the pillar view until the needle tip was noted to slide into the groove of the articular pillar. A true lateral view was obtained and the needle tips were advanced to cover to the lateral aspect C2-3 joint line (this needle was used to cover the TON and C3 MBB), lateral aspect of the articular pillar at bilateral C4 joint line, for corresponding medial branch ablation.The needles were advanced until bony contact was felt and the tip of the Quinke needle was confirmed to be in the groove of the bilateral waist of the articular pillars at the aforementioned levels. The needle positions were confirmed with AP and lateral fluoroscopic views. 0.2 mL of Isovue 200 per level was injected which revealed no vascular uptake and after negative aspiration, 0.5 mL of [lidocaine 4%] was injected at each level and the needle subsequently removed . At the end of the procedure and the needles were removed and a bandage applied after the skin was cleaned. The patient was taken to recovery room in stable condition and monitors in the recovery room for 20-30 minutes and discharged home in stable condition after discharge criteria met and patient will follow up for repeat procedure if she has relief from this one. EBL: Minimal COMPLICATION: None.
== END 2019-12-06 12:48 | disposition home or self-care (01) ==
LOC: ORPAIN 09:50
PROVIDERS: ATTEND Anesthesiology
DX: M54.2 Cervicalgia (principal); Z88.8 Allergy status to other drugs, medicaments and biological substances; Z90.710 Acquired absence of both cervix and uterus
CPT/HCPCS: 64490; 64491; J2250; Q9966; 99152

== ENCOUNTER 2019-12-07 16:47 | Emergency (ER) | payer MEDICARE, OTHER ==
[2019-12-07] MEDS ORDERED: SODIUM CHLORIDE 0.9% 1,000 ML IV STA (17:19)
--- NOTE | 2019-12-07 18:20 | XR ---
EXAMINATION TYPE: XR chest 2V DATE OF EXAM: 12/07/2019 COMPARISON: 10/14/2019 HISTORY: Follow-up pneumonia TECHNIQUE: FINDINGS: There is some coarse infiltrate in the right upper lobe above the minor fissure. This is in the posterior segment. The left lung is clear. Heart size is normal. There is no heart failure. Ther e is no pleural effusion. There is old left clavicle fracture. There is slight thoracic dextroscolios is. IMPRESSION: There is chronic right upper lobe infiltrate not significantly different compared to old exam. There is a somewhat linear distribution on the lateral view and this is more likely inflammator y.
[2019-12-07 18:21] LABS: INR 0.9 (<1.2); Partial Thromboplastin Time 24.6 sec (22.0-30.0); Prothrombin Time 9.5 sec (9.0-12.0)
[2019-12-07 18:23] LABS: Basophils # (A) 0.1 k/uL (0-0.2); Basophils % (A) 1 %; Eosinophils # (A) 0.2 k/uL (0-0.7); Eosinophils % (A) 3 %; HCT 41.8 % (34.0-46.0); HGB 12.9 gm/dL (11.4-16.0); Hypochromasia Slight; Lymphocytes # (A) 1.4 k/uL (1.0-4.8); Lymphocytes % (A) 21 %; MCH 30.7 pg (25.0-35.0); MCHC 30.9 g/dL (31.0-37.0); MCV 99.4 fL (80.0-100.0); Macrocytosis Slight; Mean Platelet Volume 6.9; Monocytes # (A) 0.3 k/uL (0-1.0); Monocytes % (A) 5 %; Neutrophils # (A) 4.6 k/uL (1.3-7.7); Neutrophils % (A) 69 %; Platelet Count 393 k/uL (150-450); RBC 4.21 m/uL (3.80-5.40); RDW 15.5 % (11.5-15.5); WBC 6.6 k/uL (3.8-10.6)
[2019-12-07 18:26] LABS: Albumin 3.3 g/dL (3.5-5.0); Calcium 8.7 mg/dL (8.4-10.2); Magnesium 1.6 mg/dL (1.6-2.3); Potassium 3.4 mmol/L (3.5-5.1); Total Bilirubin 0.4 mg/dL (0.2-1.3); Total Protein 5.5 g/dL (6.3-8.2)
--- NOTE | 2019-12-07 19:01 | ED ---
General Adult HPI - General Chief complaint: Recheck/Abnormal Lab/Rx Stated complaint: Revisit- poss overdose Time Seen by Provider: 12/07/19 16:57 Source: patient Mode of arrival: wheelchair Limitations: no limitations - History of Present Illness Initial comments: 74-year-old female patient presents to the emergency department today for evaluation of drowsiness and weakness. Patient states that she had a neck injection procedure done yesterday. States that she has been very drowsy throughout the day yesterday and through today. States that she did see her primary care physician this morning he was told to come to the emergency department for possible overmedication. Patient states that she was injected in the neck and she is unsure what medication they injected. Patient denies any headache, blurred vision, double vision. Denies any chest pain or shortness of breath. She denies numbness or tingling to her extremities. States she just feels very tired and she wants to stop feeling like this. States is the first time she had this injection done. Patient denies any recent rash, cough, abdominal pain, nausea, vomiting, diarrhea, constipation, back pain, numbness, tingling, hematuria, dysuria, urinary urgency, urinary frequency, or any other complaints. - Related Data Home Medications Medication Instructions Recorded Confirmed DULoxetine HCL [Cymbalta] 60 mg PO DAILY 09/17/13 12/06/19 fentaNYL 100MCG/HR PATCH 1 patch TRANSDERM Q72H 04/10/15 12/06/19 [Duragesic 100MCG/HR] Cyanocobalamin [Vitamin B-12 1,000 mcg SQ [id number] 11/06/15 12/06/19 Injection] Ferrous Sulfate [Iron (65 MG 650 mg PO DAILY 11/06/15 12/06/19 Elemental)] Furosemide [Lasix] 20 mg PO DAILY 11/06/15 12/06/19 SUMAtriptan succinate [Imitrex] 50 mg PO DAILY PRN 11/06/15 12/06/19 buPROPion HCL [Wellbutrin XL] 300 mg PO DAILY 11/06/15 12/06/19 busPIRone HCL 30 mg PO BID 11/06/15 12/06/19 Levocetirizine Dihydrochloride 5 mg PO HS 05/31/17 12/06/19 [Xyzal] Mirtazapine [Remeron Soluspan] 60 mg PO HS 05/31/17 12/06/19 Potassium Chloride ER [K-Dur 10] 30 meq PO DAILY 04/01/19 12/06/19 Calcium/Magnesium 250mg/300mg 1 tab PO DAILY 06/07/19 12/06/19 Ergocalciferol [Vitamin D2 50,000 units PO QMONTH 06/07/19 12/06/19 (DRISDOL)] Levothyroxine Sodium [Synthroid] 88 mcg PO DAILY 06/07/19 12/06/19 calcitrioL [Calcitriol] 1 mcg PO MOWEFR 06/07/19 12/06/19 dronabinoL [Marinol] 5 mg PO QID 06/07/19 12/06/19 hydrOXYzine pamoate [Vistaril] 50 mg PO TID PRN 06/07/19 12/06/19 metOLazone [Zaroxolyn] 2.5 mg PO Q48H 06/07/19 12/06/19 Albuterol Inhaler [Ventolin Hfa 1 puff INHALATION RT-Q6H PRN 10/05/19 12/06/19 Inhaler] Cholestyramine (with Sugar) 4 gm PO BID 10/05/19 12/06/19 [Cholestyramine Packet] Omeprazole [PriLOSEC] 20 mg PO DAILY 10/05/19 12/06/19 HYDROcodone/APAP 5-325MG [[place] 1 tab PO TID PRN 11/01/19 12/06/19 5-325] Previous Rx's Medication Instructions Recorded Folic Acid 1 mg PO DAILY@1200 #1 tablet 04/18/14 Thiamine [Vitamin B-1] 100 mg PO DAILY@1200 #1 tablet 04/18/14 Butalb/APAP/Caff 50-325-40Mg 1 each PO Q4HR PRN #30 tab 12/06/19 [Fioricet 50-325-40] Allergies Allergy/AdvReac Type Severity Reaction Status Date / Time denosumab [From Prolia] Allergy SEVERE Verified 12/07/19 16:54 CALCIUM LOSS DUST Allergy Itching Uncoded 12/07/19 16:54 MOLDS Allergy Itching Uncoded 12/07/19 16:54 Review of Systems ROS Statement: Those systems with pertinent positive or pertinent negative responses have been documented in the HPI. ROS Other: All systems not noted in ROS Statement are negative. 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 Fell in May 2019- FX HIP-LAID ON FLOOR FOR 3 DAYS hit back of head-STATES HAS SHORT TERM MEMORY PROBLEMS History of Any Multi-Drug Resistant Organisms: None Reported Past Surgical History: Back Surgery, Bowel Resection Additional Past Surgical History / Comment(s): LOWER BACK SURGERY lamenectomy/discetomy then had a revison of that sx. 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, nasal sx d/t broken nose, colonoscopy/egd, PAIN CLINIC PROCEDURES Past Anesthesia/Blood Transfusion Reactions: No Reported Reaction Additional Past Anesthesia/Blood Transfusion Reaction / Comment(s): PT RECIEVED BLOOD TRANSFUSIONS AFTER STOMACH SURGERY Past Psychological History: Anxiety, Depression, Panic Disorder Smoking Status: Never smoker Past Alcohol Use History: None Reported Past Drug Use History: None Reported - Past Family History Father Family Medical History: Cancer, Coronary Artery Disease (CAD) Additional Family Medical History / Comment(s): FATHER HAD BLADDER AND KIDNEY CANCER. FATHER HAD TB WHEN HE WAS A CHILD .FATHER AT AGE 87. Mother Family Medical History: Cancer Additional Family Medical History / Comment(s): MOTHER AT AGE 58 OF OVARIAN CANCER. General Exam Limitations: no limitations General appearance: alert, in no apparent distress, other (This is a well- developed, well-nourished elderly female patient in no acute distress. Vital signs upon presentation are temperature 98.3F, pulse 102, respirations 20, blood pressure 150/89, pulse ox 98% on room air.) Eye exam: Present: normal appearance, PERRL, EOMI. Absent: scleral icterus, conjunctival injection, periorbital swelling Respiratory exam: Present: normal lung sounds bilaterally. Absent: respiratory distress, wheezes, rales, rhonchi, stridor Cardiovascular Exam: Present: regular rate, normal rhythm, normal heart sounds. Absent: systolic murmur, diastolic murmur, rubs, gallop, clicks GI/Abdominal exam: Present: soft, normal bowel sounds. Absent: distended, tenderness, guarding, rebound, rigid Neurological exam: Present: alert, oriented X3, CN II-XII intact, other (Strength in all 4 extremities is 5/5) Psychiatric exam: Present: normal affect, normal mood Skin exam: Present: warm, dry, intact, normal color. Absent: rash Course Vital Signs 12/07/19 12/07/19 12/07/19 16:52 20:00 20:27 Temperature 98.3 F 98.0 F Pulse Rate 102 H 85 85 Respiratory 20 15 15 Rate Blood Pressure 150/89 119/75 132/80 O2 Sat by Pulse 98 98 98 Oximetry EKG Findings - EKG Comments: EKG Findings:: EKG obtained at 1809 shows normal sinus rhythm with a ventricular rate of 86, ME interval 114, QRS duration 74, QT 378, QTC 452. No evidence of ST elevation or depression. Medical Decision Making - Medical Decision Making 74-year-old female patient presents to the emergency department today for evaluation of increased drowsiness after undergoing a pain management procedure yesterday. They did use Versed for sedation as documented in the review a procedure note. Patient physical examination is unremarkable. Chest x-ray is negative for acute processes. EKG shows normal sinus rhythm. Labs reviewed and are unremarkable. She is neurologically intact with no focal deficits. Patient has requested multiple times to be discharged home. States she is feeling better after receiving IV fluids. She does have an appointment with her primary care physician at 0800 tomorrow. She'll be discharged to follow-up as planned. Return parameters were discussed in detail. She verbalizes understanding and agrees with this plan. - Lab Data Result diagrams: 12/07/19 17:50 12/07/19 17:50 Lab Results 12/07/19 12/07/19 12/07/19 Range/Units 17:50 17:50 17:50 WBC 6.6 (3.8-10.6) k/uL RBC 4.21 (3.80-5.40) m/uL Hgb 12.9 (11.4-16.0) gm/dL Hct 41.8 (34.0-46.0) % MCV 99.4 (80.0-100.0) fL MCH 30.7 (25.0-35.0) pg MCHC 30.9 L (31.0-37.0) g/dL RDW 15.5 (11.5-15.5) % Plt Count 393 (150-450) k/uL Neutrophils % 69 % Lymphocytes % 21 % Monocytes % 5 % Eosinophils % 3 % Basophils % 1 % Neutrophils # 4.6 (1.3-7.7) k/uL Lymphocytes # 1.4 (1.0-4.8) k/uL Monocytes # 0.3 (0-1.0) k/uL Eosinophils # 0.2 (0-0.7) k/uL Basophils # 0.1 (0-0.2) k/uL Hypochromasia Slight Macrocytosis Slight PT 9.5 (9.0-12.0) sec INR 0.9 (<1.2) APTT 24.6 (22.0-30.0) sec Sodium 139 (137-145) mmol/L Potassium 3.4 L (3.5-5.1) mmol/L Chloride 114 H (98-107) mmol/L Carbon Dioxide 18 L (22-30) mmol/L Anion Gap 7 mmol/L BUN 25 H (7-17) mg/dL Creatinine 1.30 H (0.52-1.04) mg/dL Est GFR (CKD-EPI)AfAm 48 (>60 ml/min/1.73 sqM) Est GFR (CKD-EPI)NonAf 41 (>60 ml/min/1.73 sqM) Glucose 88 (74-99) mg/dL Calcium 8.7 (8.4-10.2) mg/dL Magnesium 1.6 (1.6-2.3) mg/dL Total Bilirubin 0.4 (0.2-1.3) mg/dL AST 37 H (14-36) U/L ALT 30 (4-34) U/L Alkaline Phosphatase 175 H (38-126) U/L Troponin I (0.000-0.034) ng/mL Total Protein 5.5 L (6.3-8.2) g/dL Albumin 3.3 L (3.5-5.0) g/dL Urine Color Urine Appearance (Clear) Urine pH (5.0-8.0) Ur Specific [place] (1.001-1.035) Urine Protein (Negative) Urine Glucose (UA) (Negative) Urine Ketones (Negative) Urine Blood (Negative) Urine Nitrite (Negative) Urine Bilirubin (Negative) Urine Urobilinogen (<2.0) mg/dL Ur Leukocyte Esterase (Negative) Urine RBC (0-5) /hpf Urine WBC (0-5) /hpf Ur Squamous Epith Cells (0-4) /hpf Urine Bacteria (None) /hpf Hyaline Casts (0-2) /lpf 12/07/19 12/07/19 Range/Units 17:50 19:25 WBC (3.8-10.6) k/uL RBC (3.80-5.40) m/uL Hgb (11.4-16.0) gm/dL Hct (34.0-46.0) % MCV (80.0-100.0) fL MCH (25.0-35.0) pg MCHC (31.0-37.0) g/dL RDW (11.5-15.5) % Plt Count (150-450) k/uL Neutrophils % % Lymphocytes % % Monocytes % % Eosinophils % % Basophils % % Neutrophils # (1.3-7.7) k/uL Lymphocytes # (1.0-4.8) k/uL Monocytes # (0-1.0) k/uL Eosinophils # (0-0.7) k/uL Basophils # (0-0.2) k/uL Hypochromasia Macrocytosis PT (9.0-12.0) sec INR (<1.2) APTT (22.0-30.0) sec Sodium (137-145) mmol/L Potassium (3.5-5.1) mmol/L Chloride (98-107) mmol/L Carbon Dioxide (22-30) mmol/L Anion Gap mmol/L BUN (7-17) mg/dL Creatinine (0.52-1.04) mg/dL Est GFR (CKD-EPI)AfAm (>60 ml/min/1.73 sqM) Est GFR (CKD-EPI)NonAf (>60 ml/min/1.73 sqM) Glucose (74-99) mg/dL Calcium (8.4-10.2) mg/dL Magnesium (1.6-2.3) mg/dL Total Bilirubin (0.2-1.3) mg/dL AST (14-36) U/L ALT (4-34) U/L Alkaline Phosphatase (38-126) U/L Troponin I <0.012 (0.000-0.034) ng/mL Total Protein (6.3-8.2) g/dL Albumin (3.5-5.0) g/dL Urine Color Yellow Urine Appearance Clear (Clear) Urine pH 6.0 (5.0-8.0) Ur Specific [place] 1.017 (1.001-1.035) Urine Protein Trace H (Negative) Urine Glucose (UA) Negative (Negative) Urine Ketones Negative (Negative) Urine Blood Negative (Negative) Urine Nitrite Positive H (Negative) Urine Bilirubin Negative (Negative) Urine Urobilinogen <2.0 (<2.0) mg/dL Ur Leukocyte Esterase Negative (Negative) Urine RBC <1 (0-5) /hpf Urine WBC 2 (0-5) /hpf Ur Squamous Epith Cells <1 (0-4) /hpf Urine Bacteria Rare H (None) /hpf Hyaline Casts 1 (0-2) /lpf - Radiology Data Radiology results: report reviewed, image reviewed Two-view x-ray of the chest is obtained. Report was reviewed in its entirety. Impression by Dr. Hickman shows chronic right upper lobe infiltrate not significantly different compared to old exam. There is somewhat linear distribution on the lateral view and this is more likely inflammatory. Disposition Clinical Impression: Medication reaction, Drowsiness Disposition: HOME SELF-CARE Condition: Good Instructions (If sedation given, give patient instructions): Fatigue (ED) Additional Instructions: Follow-up with your primary care physician in the morning as you have planned. Return to the emergency department immediately for any new, worsening, or concerning symptoms. Is patient prescribed a controlled substance at d/c from ED?: No Referrals: Ale Eli MD [Primary Care Provider] - 1-2 days Time of Disposition: 20:05
[2019-12-07 19:40] LABS: Appearance,Urine Clear (Clear); Bacteria,Urine Rare /hpf; Bilirubin,Urine Negative (Negative); Blood,Urine Negative (Negative); Color,Urine Yellow; Glucose,Urine (UA) Negative (Negative); Hyaline Casts,Urine 1 /lpf (0-2); Ketones,Urine Negative (Negative); Leukocyte Esterase,Urine Negative (Negative); Nitrite,Urine Positive (Negative); Protein,Urine Trace (Negative); RBC,Urine <1 /hpf (0-5); Specific Gravity,Urine 1.017 (1.001-1.035); Squamous Epithelial Cell,Urine <1 /hpf (0-4); Urobilinogen,Urine <2.0 mg/dL (<2.0); WBC,Urine 2 /hpf (0-5)
[2019-12-07 20:03] VITALS: PULSE 85; RESP 15
[2019-12-07 20:29] VITALS: BP 132/80; TEMP 98
== END 2019-12-07 20:29 | disposition home or self-care (01) ==
LOC: EC 16:47
DX: T50.905A Adverse effect of unspecified drugs, medicaments and biological substances, initial encounter (principal); R91.8 Other nonspecific abnormal finding of lung field; R40.0 Somnolence; M47.812 Spondylosis without myelopathy or radiculopathy, cervical region; K21.9 Gastro-esophageal reflux disease without esophagitis; J45.909 Unspecified asthma, uncomplicated; F41.9 Anxiety disorder, unspecified; G43.909 Migraine, unspecified, not intractable, without status migrainosus; F32.9 Major depressive disorder, single episode, unspecified; Z79.899 Other long term (current) drug therapy; Z88.8 Allergy status to other drugs, medicaments and biological substances; Z91.048 Other nonmedicinal substance allergy status; Z86.73 Personal history of transient ischemic attack (TIA), and cerebral infarction without residual deficits; Z86.718 Personal history of other venous thrombosis and embolism
CPT/HCPCS: 36415; 71046; 80053; 81001; 83735; 84484; 85025; 85610; 85730; 87077; 87086; 87186; 93005; 96360; 99285

== ENCOUNTER 2019-12-25 17:06 | Emergency (ER) | payer MEDICARE, OTHER ==
--- NOTE | 2019-12-25 19:42 | ED ---
Recheck HPI - General Chief Complaint: Recheck/Abnormal Lab/Rx Stated Complaint: Vomiting Time Seen by Provider: 12/25/19 19:39 Source: patient Mode of arrival: ambulatory Limitations: no limitations - History of Present Illness Initial Comments: Patient is 74-year-old male presenting to the emergency department with chief complaint of medication refill. Patient states she takes multiple psychiatric medication as well as her Lasix she is not been able to get to her doctor so she came to the emergency department. Patient states she contacted [facility] advised to come to the ED for refills. Patient reports she accidentally threw her medication away. States she's not been able to sleep because she is out of her albuterol and Remeron. Denies any homicidal, suicidal thoughts or ideation. Denies chest pain shortness of breath. - Related Data Home Medications Medication Instructions Recorded Confirmed DULoxetine HCL [Cymbalta] 60 mg PO DAILY 09/17/13 12/06/19 fentaNYL 100MCG/HR PATCH 1 patch TRANSDERM Q72H 04/10/15 12/06/19 [Duragesic 100MCG/HR] Cyanocobalamin [Vitamin B-12 1,000 mcg SQ [id number] 11/06/15 12/06/19 Injection] Ferrous Sulfate [Iron (65 MG 650 mg PO DAILY 11/06/15 12/06/19 Elemental)] Furosemide [Lasix] 20 mg PO DAILY 11/06/15 12/06/19 SUMAtriptan succinate [Imitrex] 50 mg PO DAILY PRN 11/06/15 12/06/19 buPROPion HCL [Wellbutrin XL] 300 mg PO DAILY 11/06/15 12/06/19 busPIRone HCL 30 mg PO BID 11/06/15 12/06/19 Levocetirizine Dihydrochloride 5 mg PO HS 05/31/17 12/06/19 [Xyzal] Mirtazapine [Remeron Soluspan] 60 mg PO HS 05/31/17 12/06/19 Potassium Chloride ER [K-Dur 10] 30 meq PO DAILY 04/01/19 12/06/19 Calcium/Magnesium 250mg/300mg 1 tab PO DAILY 06/07/19 12/06/19 Ergocalciferol [Vitamin D2 50,000 units PO QMONTH 06/07/19 12/06/19 (DRISDOL)] Levothyroxine Sodium [Synthroid] 88 mcg PO DAILY 06/07/19 12/06/19 calcitrioL [Calcitriol] 1 mcg PO MOWEFR 06/07/19 12/06/19 dronabinoL [Marinol] 5 mg PO QID 06/07/19 12/06/19 hydrOXYzine pamoate [Vistaril] 50 mg PO TID PRN 06/07/19 12/06/19 metOLazone [Zaroxolyn] 2.5 mg PO Q48H 06/07/19 12/06/19 Albuterol Inhaler [Ventolin Hfa 1 puff INHALATION RT-Q6H PRN 10/05/19 12/06/19 Inhaler] Cholestyramine (with Sugar) 4 gm PO BID 10/05/19 12/06/19 [Cholestyramine Packet] Omeprazole [PriLOSEC] 20 mg PO DAILY 10/05/19 12/06/19 HYDROcodone/APAP 5-325MG [[place] 1 tab PO TID PRN 11/01/19 12/06/19 5-325] Previous Rx's Medication Instructions Recorded Folic Acid 1 mg PO DAILY@1200 #1 tablet 04/18/14 Thiamine [Vitamin B-1] 100 mg PO DAILY@1200 #1 tablet 04/18/14 Butalb/APAP/Caff 50-325-40Mg 1 each PO Q4HR PRN #30 tab 12/06/19 [Fioricet 50-325-40] Butalb/APAP/Caff 50-325-40Mg 1 tab PO Q4H PRN #4 tablet 12/25/19 [Fioricet 50-325-40] Furosemide [Lasix] 20 mg PO DAILY #3 tab 12/25/19 Mirtazapine [Remeron] 30 mg PO HS #3 tab 12/25/19 buPROPion HCL [Wellbutrin XL] 300 mg PO DAILY #3 tab 12/25/19 Allergies Allergy/AdvReac Type Severity Reaction Status Date / Time denosumab [From Prolia] Allergy SEVERE Verified 12/25/19 18:01 CALCIUM LOSS DUST Allergy Itching Uncoded 12/25/19 18:01 MOLDS Allergy Itching Uncoded 12/25/19 18:01 Review of Systems ROS Statement: Those systems with pertinent positive or pertinent negative responses have been documented in the HPI. ROS Other: All systems not noted in ROS Statement are negative. 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 Fell in May 2019- FX HIP-LAID ON FLOOR FOR 3 DAYS hit back of head-STATES HAS SHORT TERM MEMORY PROBLEMS History of Any Multi-Drug Resistant Organisms: None Reported Past Surgical History: Back Surgery, Bowel Resection Additional Past Surgical History / Comment(s): LOWER BACK SURGERY lamenectomy/discetomy then had a revison of that sx. 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, nasal sx d/t broken nose, colonoscopy/egd, PAIN CLINIC PROCEDURES Past Anesthesia/Blood Transfusion Reactions: No Reported Reaction Additional Past Anesthesia/Blood Transfusion Reaction / Comment(s): PT RECIEVED BLOOD TRANSFUSIONS AFTER STOMACH SURGERY Past Psychological History: Anxiety, Depression, Panic Disorder Smoking Status: Never smoker Past Alcohol Use History: None Reported Past Drug Use History: None Reported - Past Family History Father Family Medical History: Cancer, Coronary Artery Disease (CAD) Additional Family Medical History / Comment(s): FATHER HAD BLADDER AND KIDNEY CANCER. FATHER HAD TB WHEN HE WAS A CHILD .FATHER AT AGE 87. Mother Family Medical History: Cancer Additional Family Medical History / Comment(s): MOTHER AT AGE 58 OF OVARIAN CANCER. General Exam Limitations: no limitations General appearance: alert, in no apparent distress Head exam: Present: atraumatic, normocephalic, normal inspection Eye exam: Present: normal appearance, PERRL, EOMI Pupils: Present: normal accommodation ENT exam: Present: normal exam, normal oropharynx, mucous membranes moist, TM's normal bilaterally, normal external ear exam Neck exam: Present: normal inspection, full ROM. Absent: tenderness Respiratory exam: Present: normal lung sounds bilaterally. Absent: respiratory distress, wheezes, rales Cardiovascular Exam: Present: regular rate, normal rhythm, normal heart sounds Extremities exam: Present: normal inspection, full ROM. Absent: tenderness Back exam: Present: normal inspection, full ROM. Absent: tenderness Neurological exam: Present: alert, oriented X3, normal gait Psychiatric exam: Present: normal affect, normal mood Skin exam: Present: warm, dry, intact, normal color Course Vital Signs 12/25/19 12/25/19 17:57 21:10 Temperature 98.3 F 98.6 F Pulse Rate 91 88 Respiratory 18 16 Rate Blood Pressure 168/82 160/85 O2 Sat by Pulse 99 98 Oximetry Medical Decision Making - Medical Decision Making patient is a 74-year-old male presenting to the emergency department with chief complaint of medication refill. Medication list was cross-reference with or [facility] technicians who confirmed her dosages. She accidentally threw her medication prescription away. Patient was given 3 tablets of Wellbutrin, 3 tablets of Remeron, 3 tablets of Lasix and 4 tablets of Furacin. Patient has an appointment with [facility] on Thursday. Return parameters thoroughly discussed with patient was understanding and agreeable. Case discussed with physician. Disposition Clinical Impression: Medication refill Disposition: HOME SELF-CARE Condition: Stable Additional Instructions: Follow up with [facility]. Return to emergency department if symptoms worsen. Prescriptions: Butalb/APAP/Caff 50-325-40Mg [Fioricet 50-325-40] 1 tab PO Q4H PRN #4 tablet PRN Reason: Headache Furosemide [Lasix] 20 mg PO DAILY #3 tab Mirtazapine [Remeron] 30 mg PO HS #3 tab buPROPion HCL [Wellbutrin XL] 300 mg PO DAILY #3 tab Is patient prescribed a controlled substance at d/c from ED?: No Referrals: Ale Eli MD [Primary Care Provider] - 1-2 days Time of Disposition: 20:22
[2019-12-25] MEDS ORDERED: MIRTAZAPINE 15 MG TAB PO STA (20:21)
[2019-12-25] MEDS ORDERED: buPROPion XL 300 MG TAB.ER.24H PO STA (20:21)
[2019-12-26 01:09] VITALS: BP 160/85; PULSE 88; RESP 16; TEMP 98.6
== END 2019-12-25 21:10 | disposition home or self-care (01) ==
LOC: EC 17:06
DX: Z76.0 Encounter for issue of repeat prescription (principal); F41.9 Anxiety disorder, unspecified; M47.812 Spondylosis without myelopathy or radiculopathy, cervical region; F32.9 Major depressive disorder, single episode, unspecified; F41.0 Panic disorder [episodic paroxysmal anxiety]; K21.9 Gastro-esophageal reflux disease without esophagitis; J45.909 Unspecified asthma, uncomplicated; Z79.899 Other long term (current) drug therapy; Z88.8 Allergy status to other drugs, medicaments and biological substances; Z91.048 Other nonmedicinal substance allergy status; Z86.69 Personal history of other diseases of the nervous system and sense organs; Z86.718 Personal history of other venous thrombosis and embolism
CPT/HCPCS: 99283

== ENCOUNTER 2020-01-17 01:29 | Emergency (ER) | payer MEDICARE, OTHER ==
[2020-01-17 01:40] VITALS: BP 130/79; PULSE 102; RESP 18; TEMP 97.9
--- NOTE | 2020-01-17 02:07 | XR ---
EXAMINATION TYPE: XR wrist complete RT DATE OF EXAM: 01/17/2020 COMPARISON: NONE HISTORY: Wrist pain. Fall. TECHNIQUE: 4 views FINDINGS: There is impacted transverse fracture of the distal radial metaphysis. There is no displace ment. There is no dislocation. There is osteoarthritic narrowing of the first carpometacarpal joint. There is calcification of the triangular cartilage. The distal ulna is intact. Scaphoid is intact. IMPRESSION: Acute transverse slightly impacted fracture distal radial metaphysis.
--- NOTE | 2020-01-17 02:09 | ED ---
Upper Extremity HPI - General Chief Complaint: Extremity Injury, Upper Stated Complaint: Fall Time Seen by Provider: 01/17/20 02:02 Source: patient Mode of arrival: ambulatory Limitations: no limitations - History of Present Illness Initial Comments: Louise is a pleasant 74-year-old female% ER today for evaluation of right-sided wrist pain after a fall at home. Patient reports that she tripped she tried to brace herself with her right wrist. She did not hit her head she did not lose consciousness. She states she's had pain and swelling in the right wrist since that time which prompted her come the ER for evaluation. Patient has a history of fall with left hip fracture which was [facility]. - Related Data Home Medications Medication Instructions Recorded Confirmed RX: DULoxetine HCL [Cymbalta] 60 mg PO DAILY 09/17/13 12/06/19 RX: fentaNYL 100MCG/HR PATCH 1 patch TRANSDERM Q72H 04/10/15 12/06/19 [Duragesic 100MCG/HR] RX: Cyanocobalamin [Vitamin B-12 1,000 mcg SQ [id number] 11/06/15 12/06/19 Injection] RX: Ferrous Sulfate [Iron (65 MG 650 mg PO DAILY 11/06/15 12/06/19 Elemental)] RX: Furosemide [Lasix] 20 mg PO DAILY 11/06/15 12/06/19 RX: SUMAtriptan succinate [Imitrex] 50 mg PO DAILY PRN 11/06/15 12/06/19 RX: buPROPion HCL [Wellbutrin XL] 300 mg PO DAILY 11/06/15 12/06/19 RX: busPIRone HCL 30 mg PO BID 11/06/15 12/06/19 RX: Levocetirizine Dihydrochloride 5 mg PO HS 05/31/17 12/06/19 [Xyzal] RX: Mirtazapine [Remeron Soluspan] 60 mg PO HS 05/31/17 12/06/19 RX: Potassium Chloride ER [K-Dur 30 meq PO DAILY 04/01/19 12/06/19 10] Calcium/Magnesium 250mg/300mg 1 tab PO DAILY 06/07/19 12/06/19 RX: Ergocalciferol [Vitamin D2 50,000 units PO QMONTH 06/07/19 12/06/19 (DRISDOL)] RX: Levothyroxine Sodium 88 mcg PO DAILY 06/07/19 12/06/19 [Synthroid] RX: calcitrioL [Calcitriol] 1 mcg PO MOWEFR 06/07/19 12/06/19 RX: dronabinoL [Marinol] 5 mg PO QID 06/07/19 12/06/19 RX: hydrOXYzine pamoate [Vistaril] 50 mg PO TID PRN 06/07/19 12/06/19 RX: metOLazone [Zaroxolyn] 2.5 mg PO Q48H 06/07/19 12/06/19 RX: Albuterol Inhaler [Ventolin 1 puff INHALATION RT-Q6H PRN 10/05/19 12/06/19 Hfa Inhaler] RX: Cholestyramine (with Sugar) 4 gm PO BID 10/05/19 12/06/19 [Cholestyramine Packet] RX: Omeprazole [PriLOSEC] 20 mg PO DAILY 10/05/19 12/06/19 HYDROcodone/APAP 5-325MG [[place] 1 tab PO TID PRN 11/01/19 12/06/19 5-325] Previous Rx's Medication Instructions Recorded RX: Folic Acid 1 mg PO DAILY@1200 #1 tablet 04/18/14 RX: Thiamine [Vitamin B-1] 100 mg PO DAILY@1200 #1 tablet 04/18/14 RX: Butalb/APAP/Caff 50-325-40Mg 1 each PO Q4HR PRN #30 tab 12/06/19 [Fioricet 50-325-40] Butalb/APAP/Caff 50-325-40Mg 1 tab PO Q4H PRN #4 tablet 12/25/19 [Fioricet 50-325-40] Furosemide [Lasix] 20 mg PO DAILY #3 tab 12/25/19 Mirtazapine [Remeron] 30 mg PO HS #3 tab 12/25/19 buPROPion HCL [Wellbutrin XL] 300 mg PO DAILY #3 tab 12/25/19 Allergies Allergy/AdvReac Type Severity Reaction Status Date / Time denosumab [From Prolia] Allergy SEVERE Verified 01/17/20 01:41 CALCIUM LOSS DUST Allergy Itching Uncoded 01/17/20 01:41 MOLDS Allergy Itching Uncoded 01/17/20 01:41 Review of Systems ROS Statement: Those systems with pertinent positive or pertinent negative responses have been documented in the HPI. ROS Other: All systems not noted in ROS Statement are negative. 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 Fell in May 2019- FX HIP-LAID ON FLOOR FOR 3 DAYS hit back of head-STATES HAS SHORT TERM MEMORY PROBLEMS History of Any Multi-Drug Resistant Organisms: None Reported Past Surgical History: Back Surgery, Bowel Resection Additional Past Surgical History / Comment(s): LOWER BACK SURGERY lamenectomy/discetomy then had a revison of that sx. 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, nasal sx d/t broken nose, colonoscopy/egd, PAIN CLINIC PROCEDURES Past Anesthesia/Blood Transfusion Reactions: No Reported Reaction Additional Past Anesthesia/Blood Transfusion Reaction / Comment(s): PT RECIEVED BLOOD TRANSFUSIONS AFTER STOMACH SURGERY Past Psychological History: Anxiety, Depression, Panic Disorder Smoking Status: Never smoker Past Alcohol Use History: None Reported Past Drug Use History: None Reported - Past Family History Father Family Medical History: Cancer, Coronary Artery Disease (CAD) Additional Family Medical History / Comment(s): FATHER HAD BLADDER AND KIDNEY CANCER. FATHER HAD TB WHEN HE WAS A CHILD .FATHER AT AGE 87. Mother Family Medical History: Cancer Additional Family Medical History / Comment(s): MOTHER AT AGE 58 OF OVARIAN CANCER. General Exam - General Exam Comments Initial Comments: Physical Exam GENERAL: Underweight elderly female HENT: Normocephalic, Atraumatic. EYES: PERRL, EOMI PULMONARY: Unlabored respirations CARDIOVASCULAR: RRR Warm and well perfused extremities ABDOMEN: Non-distended SKIN: Bruising to right wrist, skin tear to proximal forearm : Deferred NEUROLOGIC: Alert and oriented Normal speech MUSCULOSKELETAL: Decreased ROM of right wrist due to pain chronic deformity of fingers consistent with rheumatism PSYCHIATRIC: No SI/HI Limitations: no limitations Course Vital Signs 01/17/20 01:35 Temperature 97.9 F Pulse Rate 102 H Respiratory 18 Rate Blood Pressure 130/79 O2 Sat by Pulse 97 Oximetry Procedures - Orthopedic Splinting/Casting Injury #1 Side: right Upper Extremity Injury Location: wrist Upper Extremity Immobilizer: sugar tong splint Other Orthopedic Equipment: other (sling) Medical Decision Making - Medical Decision Making history is obtained from patient X-rays were obtained which revealed a impacted distal radius fracture Patient was placed in a sugar tong splint which she tolerated well Patient was advised to [facility]up with [facility] Patient is again encouraged to contact [facility] regarding getting a life alert she lives alone and has frequent falls all questions pertaining care were answered return parameters were discussed patient was discharged home in stable condition Disposition Clinical Impression: Distal radius fracture, right Disposition: HOME SELF-CARE Condition: Stable Additional Instructions: As we discussed you have a fracture in your wrist, it is not displaced Keep the splint in place, Contact orthopedic office tomorrow for follow up later this week for casting Return to the ER if you develop any worsening pain, discoloration or numbness of the hand Is patient prescribed a controlled substance at d/c from ED?: No Referrals: Ale Eli MD [Primary Care Provider] - 1-2 days [facility] [Provider Group] - 1-2 days
[2020-01-17] MEDS ORDERED: MORPHINE SULFATE 4 MG/ML SYRINGE IM STA (02:23)
== END 2020-01-17 02:33 | disposition home or self-care (01) ==
LOC: EC 01:29
DX: S52.591A Other fractures of lower end of right radius, initial encounter for closed fracture (principal); R63.6 Underweight; J45.909 Unspecified asthma, uncomplicated; K21.9 Gastro-esophageal reflux disease without esophagitis; R41.9 Unspecified symptoms and signs involving cognitive functions and awareness; M89.49 Other hypertrophic osteoarthropathy, multiple sites; G43.909 Migraine, unspecified, not intractable, without status migrainosus; F32.9 Major depressive disorder, single episode, unspecified; F41.0 Panic disorder [episodic paroxysmal anxiety]; Z79.51 Long term (current) use of inhaled steroids; Z79.899 Other long term (current) drug therapy; Z98.890 Other specified postprocedural states; Z68.1 Body mass index [BMI] 19.9 or less, adult; Z88.8 Allergy status to other drugs, medicaments and biological substances; Z91.048 Other nonmedicinal substance allergy status; Z86.73 Personal history of transient ischemic attack (TIA), and cerebral infarction without residual deficits; W01.10XA Fall on same level from slipping, tripping and stumbling with subsequent striking against unspecified object, initial encounter; Y93.89 Activity, other specified; Y92.009 Unspecified place in unspecified non-institutional (private) residence as the place of occurrence of the external cause
CPT/HCPCS: 73110; 96372; 29125; 99283; J2270

== ENCOUNTER 2020-03-10 10:30 | Emergency (ER) | payer MEDICARE, OTHER ==
[2020-03-10 10:57] VITALS: RESP 18
[2020-03-10] MEDS ORDERED: METOCLOPRAMIDE 5 MG/ML 2 ML VIAL IVP STA (11:13)
[2020-03-10] MEDS ORDERED: diphenhydrAMINE 50 MG/ML 1 ML VIAL IVP STA (11:13)
[2020-03-10] MEDS ORDERED: SODIUM CHLORIDE 0.9% 500 ML 500 ML IV ONE (11:14)
[2020-03-10] MEDS ORDERED: DIAZEPAM 5 MG/ML 2 ML INJ IVP STA (11:14)
--- NOTE | 2020-03-10 11:37 | ED ---
Headache HPI - General Chief Complaint: Headache Stated Complaint: head pain Time Seen by Provider: 03/10/20 11:07 Source: patient, RN notes reviewed Mode of arrival: ambulatory Limitations: no limitations - History of Present Illness Initial Comments: This a 74-year-old female presents emergency Department chief complaint headache times one week. Patient states she has sinus congestion, sinus headache. Patient's had recurrent issues with her sinus. He states no takes fierce episode states that she is out of her prescription. Patient states that she has no weakness of her extremities. Denies any chest pain shortness breath neck pain or neck stiffness no fevers or chills no cough or URI symptoms. Patient states is more of her typical headaches that she has. Denies any photophobia. - Related Data Home Medications Medication Instructions Recorded Confirmed DULoxetine HCL [Cymbalta] 60 mg PO DAILY 09/17/13 12/06/19 fentaNYL 100MCG/HR PATCH 1 patch TRANSDERM Q72H 04/10/15 12/06/19 [Duragesic 100MCG/HR] Cyanocobalamin [Vitamin B-12 1,000 mcg SQ [id number] 11/06/15 12/06/19 Injection] Ferrous Sulfate [Iron (65 MG 650 mg PO DAILY 11/06/15 12/06/19 Elemental)] Furosemide [Lasix] 20 mg PO DAILY 11/06/15 12/06/19 SUMAtriptan succinate [Imitrex] 50 mg PO DAILY PRN 11/06/15 12/06/19 buPROPion HCL [Wellbutrin XL] 300 mg PO DAILY 11/06/15 12/06/19 busPIRone HCL 30 mg PO BID 11/06/15 12/06/19 Levocetirizine Dihydrochloride 5 mg PO HS 05/31/17 12/06/19 [Xyzal] Mirtazapine [Remeron Soluspan] 60 mg PO HS 05/31/17 12/06/19 Potassium Chloride ER [K-Dur 10] 30 meq PO DAILY 04/01/19 12/06/19 Calcium/Magnesium 250mg/300mg 1 tab PO DAILY 06/07/19 12/06/19 Ergocalciferol [Vitamin D2 50,000 units PO QMONTH 06/07/19 12/06/19 (DRISDOL)] Levothyroxine Sodium [Synthroid] 88 mcg PO DAILY 06/07/19 12/06/19 calcitrioL [Calcitriol] 1 mcg PO MOWEFR 06/07/19 12/06/19 dronabinoL [Marinol] 5 mg PO QID 06/07/19 12/06/19 hydrOXYzine pamoate [Vistaril] 50 mg PO TID PRN 06/07/19 12/06/19 metOLazone [Zaroxolyn] 2.5 mg PO Q48H 06/07/19 12/06/19 Albuterol Inhaler [Ventolin Hfa 1 puff INHALATION RT-Q6H PRN 10/05/19 12/06/19 Inhaler] Cholestyramine (with Sugar) 4 gm PO BID 10/05/19 12/06/19 [Cholestyramine Packet] Omeprazole [PriLOSEC] 20 mg PO DAILY 10/05/19 12/06/19 HYDROcodone/APAP 5-325MG [[place] 1 tab PO TID PRN 11/01/19 12/06/19 5-325] Previous Rx's Medication Instructions Recorded Folic Acid 1 mg PO DAILY@1200 #1 tablet 04/18/14 Thiamine [Vitamin B-1] 100 mg PO DAILY@1200 #1 tablet 04/18/14 Butalb/APAP/Caff 50-325-40Mg 1 each PO Q4HR PRN #30 tab 12/06/19 [Fioricet 50-325-40] Butalb/APAP/Caff 50-325-40Mg 1 tab PO Q4H PRN #4 tablet 12/25/19 [Fioricet 50-325-40] Furosemide [Lasix] 20 mg PO DAILY #3 tab 12/25/19 Mirtazapine [Remeron] 30 mg PO HS #3 tab 12/25/19 buPROPion HCL [Wellbutrin XL] 300 mg PO DAILY #3 tab 12/25/19 Butalb/APAP/Caff 50-325-40Mg 1 tab PO Q4H PRN #12 tablet 03/10/20 [Fioricet 50-325-40] Allergies Allergy/AdvReac Type Severity Reaction Status Date / Time denosumab [From Prolia] Allergy SEVERE Verified 03/10/20 10:56 CALCIUM LOSS DUST Allergy Itching Uncoded 03/10/20 10:56 MOLDS Allergy Itching Uncoded 03/10/20 10:56 Review of Systems ROS Statement: Those systems with pertinent positive or pertinent negative responses have been documented in the HPI. ROS Other: All systems not noted in ROS Statement are negative. 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 Fell in May 2019- FX HIP-LAID ON FLOOR FOR 3 DAYS hit back of head-STATES HAS SHORT TERM MEMORY PROBLEMS History of Any Multi-Drug Resistant Organisms: None Reported Past Surgical History: Back Surgery, Bowel Resection Additional Past Surgical History / Comment(s): LOWER BACK SURGERY lamenectomy/discetomy then had a revison of that sx. 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, nasal sx d/t broken nose, colonoscopy/egd, PAIN CLINIC PROCEDURES Past Anesthesia/Blood Transfusion Reactions: No Reported Reaction Additional Past Anesthesia/Blood Transfusion Reaction / Comment(s): PT RECIEVED BLOOD TRANSFUSIONS AFTER STOMACH SURGERY Past Psychological History: Anxiety, Depression, Panic Disorder Smoking Status: Never smoker Past Alcohol Use History: None Reported Past Drug Use History: None Reported - Past Family History Father Family Medical History: Cancer, Coronary Artery Disease (CAD) Additional Family Medical History / Comment(s): FATHER HAD BLADDER AND KIDNEY CANCER. FATHER HAD TB WHEN HE WAS A CHILD .FATHER AT AGE 87. Mother Family Medical History: Cancer Additional Family Medical History / Comment(s): MOTHER AT AGE 58 OF OVARIAN CANCER. General Exam Limitations: no limitations General appearance: alert, in no apparent distress Head exam: Present: atraumatic, normocephalic, normal inspection Eye exam: Present: normal appearance, PERRL, EOMI. Absent: scleral icterus, c onjunctival injection, periorbital swelling ENT exam: Present: normal exam, normal oropharynx, mucous membranes moist, TM's normal bilaterally Neck exam: Present: normal inspection, full ROM. Absent: tenderness, meningismus, lymphadenopathy Respiratory exam: Present: normal lung sounds bilaterally. Absent: respiratory distress, wheezes, rales, rhonchi, stridor Cardiovascular Exam: Present: regular rate, normal rhythm, normal heart sounds. Absent: systolic murmur, diastolic murmur, rubs, gallop, clicks GI/Abdominal exam: Present: soft, normal bowel sounds. Absent: distended, tenderness, guarding, rebound, rigid Extremities exam: Present: full ROM, normal capillary refill. Absent: normal inspection (Skin changes are noted), tenderness, pedal edema, joint swelling, calf tenderness Neurological exam: Present: alert, oriented X3, CN II-XII intact, normal gait, reflexes normal, other (Finger to nose intact bilaterally without overshooting). Absent: motor sensory deficit Skin exam: Present: warm, dry, intact, normal color. Absent: rash Course Vital Signs 03/10/20 10:53 Temperature 98.3 F Pulse Rate 88 Respiratory 18 Rate Blood Pressure 143/73 O2 Sat by Pulse 100 Oximetry Medical Decision Making - Medical Decision Making 74-year-old female presented for headache. Patient has chronic headaches and which she was out of her Fioricet. Patient did have laboratory studies which is chronic abnormality's, CT of the brain does not reveal any acute abnormality. She feels improved at this time she has no neurological deficits. - Lab Data Result diagrams: 03/10/20 11:34 03/10/20 11:34 Lab Results 03/10/20 03/10/20 Range/Units 11:34 11:34 WBC 7.8 (3.8-10.6) k/uL RBC 3.28 L (3.80-5.40) m/uL Hgb 10.2 L (11.4-16.0) gm/dL Hct 32.4 L (34.0-46.0) % MCV 98.6 (80.0-100.0) fL MCH 31.0 (25.0-35.0) pg MCHC 31.5 (31.0-37.0) g/dL RDW 14.8 (11.5-15.5) % Plt Count 421 (150-450) k/uL MPV 6.9 Neutrophils % 72 % Lymphocytes % 17 % Monocytes % 5 % Eosinophils % 5 % Basophils % 1 % Neutrophils # 5.6 (1.3-7.7) k/uL Lymphocytes # 1.3 (1.0-4.8) k/uL Monocytes # 0.4 (0-1.0) k/uL Eosinophils # 0.4 (0-0.7) k/uL Basophils # 0.1 (0-0.2) k/uL Hypochromasia Moderate Sodium 140 (137-145) mmol/L Potassium 4.5 (3.5-5.1) mmol/L Chloride 113 H (98-107) mmol/L Carbon Dioxide 22 (22-30) mmol/L Anion Gap 5 mmol/L BUN 31 H (7-17) mg/dL Creatinine 1.66 H (0.52-1.04) mg/dL Est GFR (CKD-EPI)AfAm 35 (>60 ml/min/1.73 sqM) Est GFR (CKD-EPI)NonAf 31 (>60 ml/min/1.73 sqM) Glucose 87 (74-99) mg/dL Calcium 8.2 L (8.4-10.2) mg/dL Total Bilirubin 0.3 (0.2-1.3) mg/dL AST 32 (14-36) U/L ALT 18 (4-34) U/L Alkaline Phosphatase 155 H (38-126) U/L Total Protein 5.6 L (6.3-8.2) g/dL Albumin 3.2 L (3.5-5.0) g/dL Disposition Clinical Impression: Headache Disposition: HOME SELF-CARE Condition: Stable Instructions (If sedation given, give patient instructions): Acute Headache (ED) Additional Instructions: Please return to the Emergency Department if symptoms worsen or any other concerns. Prescriptions: Butalb/APAP/Caff 50-325-40Mg [Fioricet 50-325-40] 1 tab PO Q4H PRN #12 tablet PRN Reason: Headache Is patient prescribed a controlled substance at d/c from ED?: Yes When asked, does pt state using other controlled substances?: Yes If prescribed controlled substance>3 days was MAPS reviewed?: Prescribed <3 Days If opioid is for acute pain is fill amount 7 days or less?: Yes If Rx opioid, was Start Talking consent form obtained?: Yes Referrals: Ale Eli MD [Primary Care Provider] - 1-2 days Time of Disposition: 13:16
[2020-03-10 11:42] LABS: Basophils # (A) 0.1 k/uL (0-0.2); Basophils % (A) 1 %; Eosinophils # (A) 0.4 k/uL (0-0.7); Eosinophils % (A) 5 %; HCT 32.4 % (34.0-46.0); HGB 10.2 gm/dL (11.4-16.0); Hypochromasia Moderate; Lymphocytes # (A) 1.3 k/uL (1.0-4.8); Lymphocytes % (A) 17 %; MCHC 31.5 g/dL (31.0-37.0); MCV 98.6 fL (80.0-100.0); Mean Platelet Volume 6.9; Monocytes # (A) 0.4 k/uL (0-1.0); Monocytes % (A) 5 %; Neutrophils # (A) 5.6 k/uL (1.3-7.7); Neutrophils % (A) 72 %; Platelet Count 421 k/uL (150-450); RBC 3.28 m/uL (3.80-5.40); RDW 14.8 % (11.5-15.5); WBC 7.8 k/uL (3.8-10.6)
[2020-03-10 11:50] LABS: Albumin 3.2 g/dL (3.5-5.0); Calcium 8.2 mg/dL (8.4-10.2); Potassium 4.5 mmol/L (3.5-5.1); Total Bilirubin 0.3 mg/dL (0.2-1.3); Total Protein 5.6 g/dL (6.3-8.2)
--- NOTE | 2020-03-10 11:59 | CT ---
EXAMINATION TYPE: CT brain lane keys con DATE OF EXAM: 03/10/2020 COMPARISON: None HISTORY: FOWLER CT DLP: 1153.[address] of the brain was performed. The ventricles, basal cisterns and sulci overlying the cerebral convexities demonstrate mild enlargem ent. There is no evidence for intracranial hemorrhage or sulcal effacement. There is decreased attenuatio n about the periventricular white matter and deep white matter of both cerebral hemispheres, compatib le with chronic small vessel ischemia. No mass effects are seen. If symptoms persist consider MRI. Osseous calvarium is intact. IMPRESSION: 1. Age related atrophic and chronic small vessel ischemic change without acute intracranial process seen at this time. CT Cervical Spine: Unenhanced CT of the cervical spine was performed with bone and soft tissue window settings submitted . Coronal and sagittal reconstruction is obtained. There is normal alignment and prevertebral soft tissues. No evidence for acute cervical fracture . Scattered degenerative disc disease and spondylosis. Biapical scarring. IMPRESSION: 1. No evidence for acute fracture or subluxation of the cervical spine.
[2020-03-10] MEDS ORDERED: ORPHENADRINE 30 MG/ML 2 ML VIAL IVP STA (12:24)
[2020-03-10] MEDS ORDERED: BUTALB/APAP/CAFF 50-325-40MG TAB PO STA (12:24)
[2020-03-10 13:48] VITALS: BP 146/80; PULSE 79; TEMP 98
== END 2020-03-10 13:48 | disposition home or self-care (01) ==
LOC: EC 10:30
DX: R51.9 Headache, unspecified (principal); R09.81 Nasal congestion; J45.909 Unspecified asthma, uncomplicated; K21.9 Gastro-esophageal reflux disease without esophagitis; F41.0 Panic disorder [episodic paroxysmal anxiety]; F32.9 Major depressive disorder, single episode, unspecified; Z79.899 Other long term (current) drug therapy; Z79.890 Hormone replacement therapy; Z86.718 Personal history of other venous thrombosis and embolism
CPT/HCPCS: 36415; 80053; 85025; 72125; 70450; 99284; 96374; 96375 ×3; J1200; J2360; J2765; J3360; 96372

== ENCOUNTER 2020-03-27 03:57 | Observation (INO) | payer MEDICARE, OTHER ==
[2020-03-27 04:06] VITALS: RESP 16
[2020-03-27 05:15] LABS: Basophils # (A) 0.1 k/uL (0-0.2); Basophils % (A) 1 %; Eosinophils # (A) 0.5 k/uL (0-0.7); Eosinophils % (A) 5 %; HCT 27.1 % (34.0-46.0); Hypochromasia Marked; Lymphocytes # (A) 2.5 k/uL (1.0-4.8); Lymphocytes % (A) 28 %; MCH 29.2 pg (25.0-35.0); MCHC 30.9 g/dL (31.0-37.0); MCV 94.6 fL (80.0-100.0); Mean Platelet Volume 7.1; Monocytes # (A) 0.6 k/uL (0-1.0); Monocytes % (A) 7 %; Neutrophils # (A) 4.9 k/uL (1.3-7.7); Neutrophils % (A) 56 %; Platelet Count 331 k/uL (150-450); RBC 2.86 m/uL (3.80-5.40); RDW 14.5 % (11.5-15.5); WBC 8.8 k/uL (3.8-10.6)
[2020-03-27 05:25] LABS: Albumin 3.3 g/dL (3.5-5.0); Calcium 8.8 mg/dL (8.4-10.2); HGB 8.4 gm/dL (11.4-16.0); Potassium 4.3 mmol/L (3.5-5.1); Total Bilirubin 0.4 mg/dL (0.2-1.3); Total Protein 5.6 g/dL (6.3-8.2)
[2020-03-27] MEDS ORDERED: HYDROcodone/APAP 5-325MG 1 EACH TAB PO STA (05:27)
--- NOTE | 2020-03-27 07:00 | XR ---
EXAM: XR Chest, 2 Views CLINICAL HISTORY: ITS.REASON XR Reason: leg edema TECHNIQUE: Frontal and lateral views of the chest. COMPARISON: 12/07/2019 FINDINGS: Lungs: Hazy right upper lobe opacity, unchanged from 12/07/2019. No new consolidations. Pleural space: Unremarkable. No pneumothorax. Heart: Unremarkable. No cardiomegaly. Mediastinum: Unremarkable. Bones/joints: Unremarkable. IMPRESSION: Hazy right upper lobe opacity, unchanged from 12/07/2019 which may represent scarring or chronic consolidation.
--- NOTE | 2020-03-27 07:06 | ED ---
Extremity Problem HPI - General Source: patient Mode of arrival: wheelchair Limitations: no limitations - History of Present Illness MD Complaint: extremity pain, extremity swelling Onset/Timin -: week(s) Location: bilateral lower extremity History of Same: Yes Quality: dull, constant Consistency: constant Improves with: elevation Worsens with: walking Associated Symptoms: other (Congestion) <Salvatore Levin - Last Filed: 03/28/20 08:28> <Sylvia May - Last Filed: 04/02/20 20:04> - General Chief complaint: Extremity Problem,Nontraumatic Stated complaint: Leg pain and swelling Time Seen by Provider: 03/27/20 05:34 - History of Present Illness Initial comments: This patient is a 75-year-old woman who presents to have evaluation for bilate ral leg swelling and pain related to this. The patient states that she had started having symptoms on Thanksgiving which included congestion that she thought was a sinus infection. She then followed with her physician in clinic the next week and she states she was given course of antibiotic as well as then told to take Lasix for the leg swelling. She notes that it has not helped with the edema and she has had progressive worsening over the past few days. Patient denies chest pain or dyspnea. She has not noted fever or chills. The patient states she has not think she has had coronavirus exposure and does not believe she has it. (Salvatore Levin) - Related Data Home Medications Medication Instructions Recorded Confirmed DULoxetine HCL [Cymbalta] 60 mg PO DAILY 09/17/13 12/06/19 fentaNYL 100MCG/HR PATCH 1 patch TRANSDERM Q72H 04/10/15 12/06/19 [Duragesic 100MCG/HR] Cyanocobalamin [Vitamin B-12 1,000 mcg SQ [id number] 11/06/15 12/06/19 Injection] Ferrous Sulfate [Iron (65 MG 650 mg PO DAILY 11/06/15 12/06/19 Elemental)] Furosemide [Lasix] 20 mg PO DAILY 11/06/15 12/06/19 SUMAtriptan succinate [Imitrex] 50 mg PO DAILY PRN 11/06/15 12/06/19 buPROPion HCL [Wellbutrin XL] 300 mg PO DAILY 11/06/15 12/06/19 busPIRone HCL 30 mg PO BID 11/06/15 12/06/19 Levocetirizine Dihydrochloride 5 mg PO HS 05/31/17 12/06/19 [Xyzal] Mirtazapine [Remeron Soluspan] 60 mg PO HS 05/31/17 12/06/19 Potassium Chloride ER [K-Dur 10] 30 meq PO DAILY 04/01/19 12/06/19 Calcium/Magnesium 250mg/300mg 1 tab PO DAILY 06/07/19 12/06/19 Ergocalciferol [Vitamin D2 50,000 units PO QMONTH 06/07/19 12/06/19 (DRISDOL)] Levothyroxine Sodium [Synthroid] 88 mcg PO DAILY 06/07/19 12/06/19 calcitrioL [Calcitriol] 1 mcg PO MOWEFR 06/07/19 12/06/19 dronabinoL [Marinol] 5 mg PO QID 06/07/19 12/06/19 hydrOXYzine pamoate [Vistaril] 50 mg PO TID PRN 06/07/19 12/06/19 metOLazone [Zaroxolyn] 2.5 mg PO Q48H 06/07/19 12/06/19 Albuterol Inhaler [Ventolin Hfa 1 puff INHALATION RT-Q6H PRN 10/05/19 12/06/19 Inhaler] Cholestyramine (with Sugar) 4 gm PO BID 10/05/19 12/06/19 [Cholestyramine Packet] Omeprazole [PriLOSEC] 20 mg PO DAILY 10/05/19 12/06/19 HYDROcodone/APAP 5-325MG [[place] 1 tab PO TID PRN 11/01/19 12/06/19 5-325] Previous Rx's Medication Instructions Recorded Folic Acid 1 mg PO DAILY@1200 #1 tablet 04/18/14 Thiamine [Vitamin B-1] 100 mg PO DAILY@1200 #1 tablet 04/18/14 Butalb/APAP/Caff 50-325-40Mg 1 each PO Q4HR PRN #30 tab 12/06/19 [Fioricet 50-325-40] Butalb/APAP/Caff 50-325-40Mg 1 tab PO Q4H PRN #4 tablet 12/25/19 [Fioricet 50-325-40] Furosemide [Lasix] 20 mg PO DAILY #3 tab 12/25/19 Mirtazapine [Remeron] 30 mg PO HS #3 tab 12/25/19 buPROPion HCL [Wellbutrin XL] 300 mg PO DAILY #3 tab 12/25/19 Butalb/APAP/Caff 50-325-40Mg 1 tab PO Q4H PRN #12 tablet 03/10/20 [Fioricet 50-325-40] Allergies Allergy/AdvReac Type Severity Reaction Status Date / Time denosumab [From Prolia] Allergy SEVERE Verified 03/27/20 04:06 CALCIUM LOSS DUST Allergy Itching Uncoded 03/27/20 04:06 MOLDS Allergy Itching Uncoded 03/27/20 04:06 Review of Systems ROS Other: All systems not noted in ROS Statement are negative. Constitutional: Denies: fever, chills, weakness ENT: Reports: congestion. Denies: throat pain Respiratory: Denies: cough, dyspnea, hemoptysis Cardiovascular: Reports: edema. Denies: chest pain, palpitations, orthopnea, syncope Gastrointestinal: Denies: abdominal pain, vomiting, diarrhea Genitourinary: Denies: dysuria, hematuria Musculoskeletal: Denies: back pain Skin: Denies: rash Neurological: Denies: headache, weakness, numbness, paresthesias <Salvatore Levin - Last Filed: 03/28/20 08:28> ROS Other: All systems not noted in ROS Statement are negative. <Sylvia May - Last Filed: 04/02/20 20:04> ROS Statement: Those systems with pertinent positive or pertinent negative responses have been documented in the HPI. 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 Fell in May 2019- FX HIP-LAID ON FLOOR FOR 3 DAYS hit back of head-STATES HAS SHORT TERM MEMORY PROBLEMS History of Any Multi-Drug Resistant Organisms: None Reported Past Surgical History: Back Surgery, Bowel Resection Additional Past Surgical History / Comment(s): LOWER BACK SURGERY lamenectomy/discetomy then had a revison of that sx. 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, na sebastián sx d/t broken nose, colonoscopy/egd, PAIN CLINIC PROCEDURES Past Anesthesia/Blood Transfusion Reactions: No Reported Reaction Additional Past Anesthesia/Blood Transfusion Reaction / Comment(s): PT RECIEVED BLOOD TRANSFUSIONS AFTER STOMACH SURGERY Past Psychological History: Anxiety, Depression, Panic Disorder Smoking Status: Never smoker Past Alcohol Use History: None Reported Past Drug Use History: None Reported - Past Family History Father Family Medical History: Cancer, Coronary Artery Disease (CAD) Additional Family Medical History / Comment(s): FATHER HAD BLADDER AND KIDNEY CANCER. FATHER HAD TB WHEN HE WAS A CHILD .FATHER AT AGE 87. Mother Family Medical History: Cancer Additional Family Medical History / Comment(s): MOTHER AT AGE 58 OF OVARIAN CANCER. <Salvatore Levin - Last Filed: 03/28/20 08:28> General Exam Limitations: no limitations General appearance: alert, in no apparent distress Head exam: Present: atraumatic, normocephalic Eye exam: Present: normal appearance. Absent: scleral icterus, conjunctival injection Respiratory exam: Present: normal lung sounds bilaterally. Absent: respiratory distress, wheezes, rales, rhonchi, stridor, accessory muscle use, decreased breath sounds, prolonged expiratory Cardiovascular Exam: Present: regular rate, normal rhythm, normal heart sounds. Absent: systolic murmur, diastolic murmur, rubs, gallop GI/Abdominal exam: Present: soft. Absent: distended, tenderness, guarding, rebound, rigid, mass Extremities exam: Present: normal inspection, normal capillary refill, pedal edema (Patient has bilateral edema to above the knees). Absent: calf tenderness Back exam: Present: normal inspection. Absent: CVA tenderness (R), CVA tenderness (L) Neurological exam: Present: alert Skin exam: Present: warm, dry, intact, normal color. Absent: rash <Salvatore Levin - Last Filed: 03/28/20 08:28> Course Vital Signs 03/27/20 03/27/20 03/27/20 03:58 05:25 07:00 Temperature 98 F 98.4 F 98.0 F Pulse Rate 89 85 82 Respiratory 16 16 16 Rate Blood Pressure 120/72 122/73 115/72 O2 Sat by Pulse 98 99 97 Oximetry Medical Decision Making - Lab Data Result diagrams: 03/27/20 04:57 03/27/20 04:57 <Salvatore Levin - Last Filed: 03/28/20 08:28> - Lab Data Result diagrams: 03/27/20 04:57 03/27/20 04:57 <Sylvia May - Last Filed: 04/02/20 20:04> - Medical Decision Making This patient is 75-year-old woman with complaint of bilateral leg edema. At the time of shift and, the patient is found to have elevated d-dimer and therefore is pending duplex Doppler. I did discuss the patient's case with Dr Desir, anticipating the patient may be admitted. The study did return negative and probably patient was feeling better and wanted to go home. (Salvatore Levin) Admissions orders were placed by Dr. Manning. After he left, the patient changed her mind and wanted to go home. Patient instructed that she would be leaving AM A. Patient understood the risks of leaving and is capable of making her own decisions. Patient asked to follow up with her PCP in 2-4 days. Return if she agrees to hospital admission. (Sylvia May) - Lab Data Lab Results 03/27/20 03/27/20 03/27/20 Range/Units 04:57 04:57 05:37 WBC 8.8 (3.8-10.6) k/uL RBC 2.86 L (3.80-5.40) m/uL Hgb 8.4 L D (11.4-16.0) gm/dL Hct 27.1 L (34.0-46.0) % MCV 94.6 (80.0-100.0) fL MCH 29.2 (25.0-35.0) pg MCHC 30.9 L (31.0-37.0) g/dL RDW 14.5 (11.5-15.5) % Plt Count 331 (150-450) k/uL MPV 7.1 Neutrophils % 56 % Lymphocytes % 28 % Monocytes % 7 % Eosinophils % 5 % Basophils % 1 % Neutrophils # 4.9 (1.3-7.7) k/uL Lymphocytes # 2.5 (1.0-4.8) k/uL Monocytes # 0.6 (0-1.0) k/uL Eosinophils # 0.5 (0-0.7) k/uL Basophils # 0.1 (0-0.2) k/uL Hypochromasia Marked D-Dimer (<0.60) mg/L FEU Sodium 139 (137-145) mmol/L Potassium 4.3 (3.5-5.1) mmol/L Chloride 115 H (98-107) mmol/L Carbon Dioxide 17 L (22-30) mmol/L Anion Gap 7 mmol/L BUN 34 H (7-17) mg/dL Creatinine 1.74 H (0.52-1.04) mg/dL Est GFR (CKD-EPI)AfAm 33 (>60 ml/min/1.73 sqM) Est GFR (CKD-EPI)NonAf 29 (>60 ml/min/1.73 sqM) Glucose 75 (74-99) mg/dL Calcium 8.8 (8.4-10.2) mg/dL Total Bilirubin 0.4 (0.2-1.3) mg/dL AST 38 H (14-36) U/L ALT 33 (4-34) U/L Alkaline Phosphatase 137 H (38-126) U/L NT-Pro-B Natriuret Pep 456 pg/mL Total Protein 5.6 L (6.3-8.2) g/dL Albumin 3.3 L (3.5-5.0) g/dL Coronavirus (PCR) (Not Detectd) 03/27/20 03/27/20 Range/Units 05:40 07:21 WBC (3.8-10.6) k/uL RBC (3.80-5.40) m/uL Hgb (11.4-16.0) gm/dL Hct (34.0-46.0) % MCV (80.0-100.0) fL MCH (25.0-35.0) pg MCHC (31.0-37.0) g/dL RDW (11.5-15.5) % Plt Count (150-450) k/uL MPV Neutrophils % % Lymphocytes % % Monocytes % % Eosinophils % % Basophils % % Neutrophils # (1.3-7.7) k/uL Lymphocytes # (1.0-4.8) k/uL Monocytes # (0-1.0) k/uL Eosinophils # (0-0.7) k/uL Basophils # (0-0.2) k/uL Hypochromasia D-Dimer 1.64 H (<0.60) mg/L FEU Sodium (137-145) mmol/L Potassium (3.5-5.1) mmol/L Chloride (98-107) mmol/L Carbon Dioxide (22-30) mmol/L Anion Gap mmol/L BUN (7-17) mg/dL Creatinine (0.52-1.04) mg/dL Est GFR (CKD-EPI)AfAm (>60 ml/min/1.73 sqM) Est GFR (CKD-EPI)NonAf (>60 ml/min/1.73 sqM) Glucose (74-99) mg/dL Calcium (8.4-10.2) mg/dL Total Bilirubin (0.2-1.3) mg/dL AST (14-36) U/L ALT (4-34) U/L Alkaline Phosphatase (38-126) U/L NT-Pro-B Natriuret Pep pg/mL Total Protein (6.3-8.2) g/dL Albumin (3.5-5.0) g/dL Coronavirus (PCR) Not Detected (Not Detectd) Disposition <Salvatore Levin - Last Filed: 03/28/20 08:28> Is patient prescribed a controlled substance at d/c from ED?: No Decision to Admit Reason: Admit from EC Decision Date: 03/27/20 Decision Time: 08:26 <Sylvia May - Last Filed: 04/02/20 20:04> Clinical Impression: Edema, D-dimer, elevated Disposition: Left Against Medical Advice Condition: Stable
[2020-03-27] MEDS ORDERED: HYDROcodone/APAP 5-325MG 1 EACH TAB PO PRN (07:59)
[2020-03-27] MEDS ORDERED: NALOXONE 0.4 MG/ML 1 ML VIAL IV PRN (07:59)
[2020-03-27] MEDS ORDERED: ENOXAPARIN 40 MG/0.4 ML SYRINGE SQ SCH (08:00)
[2020-03-27] MEDS ORDERED: SODIUM CHLORIDE 0.9% 1,000 ML IV SCH (08:00)
--- NOTE | 2020-03-27 08:21 | US ---
EXAMINATION TYPE: US venous doppler duplex LE DATE OF EXAM: 03/27/2020 8:14 AM COMPARISON: NONE CLINICAL HISTORY: Bilateral leg pain. Elevated D-dimer, leg swelling SIDE PERFORMED: Bilateral TECHNIQUE: The lower extremity deep venous system is examined utilizing real time linear array sonog jaguar with graded compression, doppler sonography and color-flow sonography. VESSELS IMAGED: Common Femoral Vein Deep Femoral Vein Greater Saphenous Vein * Femoral Vein Popliteal Vein Small Saphenous Vein * Proximal Calf Veins (* superficial vessels) There is normal flow, compressibility, vascular waveforms. Right Leg: Negative for DVT Left Leg: Negative for DVT IMPRESSION: No evident deep venous thrombosis at or above the knees.
[2020-03-27] MEDS ORDERED: KETOROLAC 15 MG/ML 1 ML VIAL IVP STA (09:04)
[2020-03-27 09:23] VITALS: BP 138/78; PULSE 78; TEMP 97.8
[2020-03-28] MEDS ORDERED: ENOXAPARIN 40 MG/0.4 ML SYRINGE SQ SCH (09:00)
== END 2020-03-27 20:36 | disposition left against medical advice (07) ==
LOC: EC 03:57 → 1SOBS 07:59
PROVIDERS: ADMIT Internal Medicine; ATTEND Internal Medicine
DX: R60.0 Localized edema (principal); M79.662 Pain in left lower leg; M79.661 Pain in right lower leg; Z20.828 Contact with and (suspected) exposure to other viral communicable diseases; F41.0 Panic disorder [episodic paroxysmal anxiety]; J45.909 Unspecified asthma, uncomplicated; Z79.890 Hormone replacement therapy; Z80.41 Family history of malignant neoplasm of ovary; Z80.51 Family history of malignant neoplasm of kidney; Z82.49 Family history of ischemic heart disease and other diseases of the circulatory system; Z86.73 Personal history of transient ischemic attack (TIA), and cerebral infarction without residual deficits; Z87.11 Personal history of peptic ulcer disease; Z91.81 History of falling
CPT/HCPCS: 96372; 96374; 99284; 36415; 85379; 83880; 80053; 85025; 87635; 71046; 93970; G0378; J1650; J1885

== ENCOUNTER 2020-04-14 03:14 | Inpatient (IN) | payer MEDICARE, OTHER ==
[2020-04-14] MEDS ORDERED: HYDROcodone/APAP 5-325MG 1 EACH TAB PO STA (04:05)
[2020-04-14 04:20] LABS: ALT 37 U/L (4-34); AST 61 U/L (14-36); African American GFR (CKD) 27 (>60 ml/min/1.73 sqM); Albumin 4.2 g/dL (3.5-5.0); Alcohol <10 mg/dL; Alkaline Phosphatase 174 U/L (38-126); Anion Gap 11 mmol/L; Blood Urea Nitrogen 47 mg/dL (7-17); Calcium 8.4 mg/dL (8.4-10.2); Carbon Dioxide 30 mmol/L (22-30); Chloride 95 mmol/L (98-107); Glucose 143 mg/dL (74-99); Non-African American GFR(CKD) 23 (>60 ml/min/1.73 sqM); Sodium 136 mmol/L (137-145); Total Bilirubin 0.6 mg/dL (0.2-1.3); Total Protein 6.7 g/dL (6.3-8.2)
[2020-04-14 04:26] LABS: Anisocytosis Slight; HCT 27.8 % (34.0-46.0); Hypochromasia Marked; MCH 25.5 pg (25.0-35.0); MCHC 28.9 g/dL (31.0-37.0); Mean Platelet Volume 7.1; Platelet Count 505 k/uL (150-450); Poikilocytosis Moderate; RBC 3.15 m/uL (3.80-5.40); RDW 16.2 % (11.5-15.5)
[2020-04-14] MEDS ORDERED: ALPRAZolam 0.5 MG TAB PO STA (04:28)
[2020-04-14] MEDS ORDERED: POTASSIUM CHLORIDE ER 20 MEQ TAB.ER PO STA ×3 (04:28→16:03)
[2020-04-14 04:29] LABS: Potassium 2.3 mmol/L (3.5-5.1)
[2020-04-14 04:31] LABS: MCV 88.3 fL (80.0-100.0)
[2020-04-14 04:59] LABS: Appearance,Urine Clear (Clear); Bilirubin,Urine Negative (Negative); Blood,Urine Negative (Negative); Color,Urine Light Yellow; Glucose,Urine (UA) Negative (Negative); Ketones,Urine Negative (Negative); Leukocyte Esterase,Urine Trace (Negative); Mucus,Urine Rare /hpf; Nitrite,Urine Negative (Negative); Protein,Urine Negative (Negative); Specific Gravity,Urine 1.009 (1.001-1.035); Squamous Epithelial Cell,Urine 1 /hpf (0-4); Urobilinogen,Urine <2.0 mg/dL (<2.0); WBC,Urine 1 /hpf (0-5)
[2020-04-14 05:11] LABS: Eosinophils # (M) 0.07 k/uL (0-0.7); Lymphocytes # (M) 0.98 k/uL (1.0-4.8); Monocytes # (M) 0.56 k/uL (0-1.0); Neutrophils # (M) 5.39 k/uL (1.3-7.7); Neutrophils % (M) 77 %; Nucleated Red Blood Cells 0 /100 WBC (0-0); Total Cells Counted 100
[2020-04-14 05:12] LABS: Anisocytosis (M) Present; Hypersegmented Neutrophils Present; Poikilocytosis (M) Present; Polychromasia Present
[2020-04-14] MEDS ORDERED: NITROGLYCERIN SL TABS 0.4 MG TAB SUBLINGUAL PRN (05:27)
--- NOTE | 2020-04-14 05:48 | ED ---
Anxiety HPI - General Chief Complaint: Anxiety Stated Complaint: Anxiety Time Seen by Provider: 04/14/20 03:29 Source: patient, EMS Mode of arrival: EMS - History of Present Illness Initial Comments: This patient is 75-year-old woman who presents with complaint that she is feelin g anxious. She states she has not been able to get to sleep. She has numbness and tingling of the bilateral hands and face. MD Complaint: anxiety -: days(s) Symptoms: extremity numbness/tingling, perioral numbness/tingling Place: home Previous History of Same: Yes Severity: moderate Quality: constant Improves With: medication Worsens With: nothing Associated symptoms: shortness of breath - Related Data Home Medications: Home Medications Medication Instructions Recorded Confirmed DULoxetine HCL [Cymbalta] 60 mg PO DAILY 09/17/13 12/06/19 fentaNYL 100MCG/HR PATCH 1 patch TRANSDERM Q72H 04/10/15 12/06/19 [Duragesic 100MCG/HR] Cyanocobalamin [Vitamin B-12 1,000 mcg SQ [id number] 11/06/15 12/06/19 Injection] Ferrous Sulfate [Iron (65 MG 650 mg PO DAILY 11/06/15 12/06/19 Elemental)] Furosemide [Lasix] 20 mg PO DAILY 11/06/15 12/06/19 SUMAtriptan succinate [Imitrex] 50 mg PO DAILY PRN 11/06/15 12/06/19 buPROPion HCL [Wellbutrin XL] 300 mg PO DAILY 11/06/15 12/06/19 busPIRone HCL 30 mg PO BID 11/06/15 12/06/19 Levocetirizine Dihydrochloride 5 mg PO HS 05/31/17 12/06/19 [Xyzal] Mirtazapine [Remeron Soluspan] 60 mg PO HS 05/31/17 12/06/19 Potassium Chloride ER [K-Dur 10] 30 meq PO DAILY 04/01/19 12/06/19 Calcium/Magnesium 250mg/300mg 1 tab PO DAILY 06/07/19 12/06/19 Ergocalciferol [Vitamin D2 50,000 units PO QMONTH 06/07/19 12/06/19 (DRISDOL)] Levothyroxine Sodium [Synthroid] 88 mcg PO DAILY 06/07/19 12/06/19 calcitrioL [Calcitriol] 1 mcg PO MOWEFR 06/07/19 12/06/19 dronabinoL [Marinol] 5 mg PO QID 06/07/19 12/06/19 hydrOXYzine pamoate [Vistaril] 50 mg PO TID PRN 06/07/19 12/06/19 metOLazone [Zaroxolyn] 2.5 mg PO Q48H 06/07/19 12/06/19 Albuterol Inhaler [Ventolin Hfa 1 puff INHALATION RT-Q6H PRN 10/05/19 12/06/19 Inhaler] Cholestyramine (with Sugar) 4 gm PO BID 10/05/19 12/06/19 [Cholestyramine Packet] Omeprazole [PriLOSEC] 20 mg PO DAILY 10/05/19 12/06/19 HYDROcodone/APAP 5-325MG [[place] 1 tab PO TID PRN 11/01/19 12/06/19 5-325] Previous Rx's Medication Instructions Recorded Folic Acid 1 mg PO DAILY@1200 #1 tablet 04/18/14 Thiamine [Vitamin B-1] 100 mg PO DAILY@1200 #1 tablet 04/18/14 Butalb/APAP/Caff 50-325-40Mg 1 each PO Q4HR PRN #30 tab 12/06/19 [Fioricet 50-325-40] Butalb/APAP/Caff 50-325-40Mg 1 tab PO Q4H PRN #4 tablet 12/25/19 [Fioricet 50-325-40] Furosemide [Lasix] 20 mg PO DAILY #3 tab 12/25/19 Mirtazapine [Remeron] 30 mg PO HS #3 tab 12/25/19 buPROPion HCL [Wellbutrin XL] 300 mg PO DAILY #3 tab 12/25/19 Butalb/APAP/Caff 50-325-40Mg 1 tab PO Q4H PRN #12 tablet 03/10/20 [Fioricet 50-325-40] Allergies/Adverse Reactions: Allergies Allergy/AdvReac Type Severity Reaction Status Date / Time denosumab [From Prolia] Allergy SEVERE Verified 03/27/20 04:06 CALCIUM LOSS DUST Allergy Itching Uncoded 03/27/20 04:06 MOLDS Allergy Itching Uncoded 03/27/20 04:06 Review of Systems ROS Statement: Those systems with pertinent positive or pertinent negative responses have been documented in the HPI. ROS Other: All systems not noted in ROS Statement are negative. Constitutional: Denies: fever, chills Respiratory: Reports: dyspnea. Denies: cough, wheezes Cardiovascular: Denies: chest pain, palpitations, orthopnea, edema, syncope Gastrointestinal: Denies: abdominal pain, nausea, vomiting Genitourinary: Denies: dysuria, hematuria Musculoskeletal: Denies: back pain Skin: Denies: rash Neurological: Denies: headache Psychiatric: Reports: anxiety Past Medical History Past Medical History: Asthma, Deep Vein Thrombosis (DVT), GERD/Reflux, Memory Impairment Additional Past Medical History / Comment(s): OA IN NECK,BACK AND BILATERAL ARMS.stomach ulcers, edema,low calcium; migraine headaches, pancreatitis,constipation,tia,spinal stenosis(had sx ). Fell in May 2019- FX HIP-LAID ON FLOOR FOR 3 DAYS hit back of head-STATES HAS SHORT TERM MEMORY PROBLEMS History of Any Multi-Drug Resistant Organisms: None Reported Past Surgical History: Back Surgery, Bowel Resection Additional Past Surgical History / Comment(s): LOWER BACK SURGERY lamene ctomy/discetomy then had a revison of that sx. 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, nasal sx d/t broken nose, colonoscopy/egd, PAIN CLINIC PROCEDURES Past Anesthesia/Blood Transfusion Reactions: No Reported Reaction Additional Past Anesthesia/Blood Transfusion Reaction / Comment(s): PT RECIEVED BLOOD TRANSFUSIONS AFTER STOMACH SURGERY Past Psychological History: Anxiety, Depression, Panic Disorder Smoking Status: Never smoker Past Alcohol Use History: None Reported Past Drug Use History: None Reported - Past Family History Father Family Medical History: Cancer, Coronary Artery Disease (CAD) Additional Family Medical History / Comment(s): FATHER HAD BLADDER AND KIDNEY CANCER. FATHER HAD TB WHEN HE WAS A CHILD .FATHER AT AGE 87. Mother Family Medical History: Cancer Additional Family Medical History / Comment(s): MOTHER AT AGE 58 OF OVARIAN CANCER. General Exam Limitations: no limitations General appearance: alert, in no apparent distress, anxious Head exam: Present: atraumatic, normocephalic Eye exam: Present: normal appearance. Absent: scleral icterus, conjunctival injection ENT exam: Present: mucous membranes dry Neck exam: Present: normal inspection Respiratory exam: Present: normal lung sounds bilaterally. Absent: respiratory distress, wheezes, rales, rhonchi, stridor Cardiovascular Exam: Present: regular rate, normal rhythm, normal heart sounds. Absent: systolic murmur, diastolic murmur, rubs, gallop GI/Abdominal exam: Present: soft. Absent: distended, tenderness, guarding, rebound, rigid, mass Extremities exam: Present: normal inspection, normal capillary refill. Absent: pedal edema, calf tenderness Back exam: Present: normal inspection. Absent: CVA tenderness (R), CVA tenderness (L) Neurological exam: Present: alert Psychiatric exam: Present: anxious. Absent: flat affect, homicidal ideation, suicidal ideation Skin exam: Present: warm, dry, intact, normal color. Absent: rash Course Vital Signs 04/14/20 04/14/20 04/14/20 03:17 04:25 05:41 Temperature 97.9 F 98.0 F Pulse Rate 100 101 H 105 H Respiratory 16 18 18 Rate Blood Pressure 137/51 122/72 128/75 O2 Sat by Pulse 98 99 98 Oximetry Medical Decision Making - Medical Decision Making Patient is 75-year-old woman presenting with anxiety. She is found to be markedly hypokalemic. In addition, patient patient's creatinine is up versus baseline and has or line troponin I suspect related to the change in kidney function. The patient will be admitted for serial cardiac enzymes and also for potassium replacement. She is feeling a bit better with the medication here. - Lab Data Result diagrams: 04/14/20 04:05 04/14/20 04:05 Lab Results 04/14/20 04/14/20 04/14/20 Range/Units 04:05 04:05 04:05 WBC 7.0 (3.8-10.6) k/uL RBC 3.15 L (3.80-5.40) m/uL Hgb 8.0 L (11.4-16.0) gm/dL Hct 27.8 L (34.0-46.0) % MCV 88.3 D (80.0-100.0) fL MCH 25.5 (25.0-35.0) pg MCHC 28.9 L (31.0-37.0) g/dL RDW 16.2 H (11.5-15.5) % Plt Count 505 H (150-450) k/uL MPV 7.1 Neutrophils % Not Reportable Neutrophils % (Manual) 77 % Lymphocytes % Not Reportable Lymphocytes % (Manual) 14 % Monocytes % Not Reportable Monocytes % (Manual) 8 % Eosinophils % Not Reportable Eosinophils % (Manual) 1 % Basophils % Not Reportable Neutrophils # Not Reportable Neutrophils # (Manual) 5.39 (1.3-7.7) k/uL Lymphocytes # Not Reportable Lymphocytes # (Manual) 0.98 L (1.0-4.8) k/uL Monocytes # Not Reportable Monocytes # (Manual) 0.56 (0-1.0) k/uL Eosinophils # Not Reportable Eosinophils # (Manual) 0.07 (0-0.7) k/uL Basophils # Not Reportable Nucleated RBCs 0 (0-0) /100 WBC Manual Slide Review Performed Hypersegmented Neuts Present Polychromasia Present Hypochromasia Marked Poikilocytosis Moderate Poikilocytosis (manual Present Anisocytosis Slight Anisocytosis (manual) Present Sodium 136 L (137-145) mmol/L Potassium 2.3 L* (3.5-5.1) mmol/L Chloride 95 L (98-107) mmol/L Carbon Dioxide 30 (22-30) mmol/L Anion Gap 11 mmol/L BUN 47 H (7-17) mg/dL Creatinine 2.07 H (0.52-1.04) mg/dL Est GFR (CKD-EPI)AfAm 27 (>60 ml/min/1.73 sqM) Est GFR (CKD-EPI)NonAf 23 (>60 ml/min/1.73 sqM) Glucose 143 H (74-99) mg/dL Calcium 8.4 (8.4-10.2) mg/dL Total Bilirubin 0.6 (0.2-1.3) mg/dL AST 61 H (14-36) U/L ALT 37 H (4-34) U/L Alkaline Phosphatase 174 H (38-126) U/L Troponin I 0.069 H* (0.000-0.034) ng/mL Total Protein 6.7 (6.3-8.2) g/dL Albumin 4.2 (3.5-5.0) g/dL TSH 4.600 (0.465-4.680) mIU/L Urine Color Urine Appearance (Clear) Urine pH (5.0-8.0) Ur Specific [place] (1.001-1.035) Urine Protein (Negative) Urine Glucose (UA) (Negative) Urine Ketones (Negative) Urine Blood (Negative) Urine Nitrite (Negative) Urine Bilirubin (Negative) Urine Urobilinogen (<2.0) mg/dL Ur Leukocyte Esterase (Negative) Urine WBC (0-5) /hpf Ur Squamous Epith Cells (0-4) /hpf Urine Mucus (None) /hpf Serum Alcohol <10 mg/dL 04/14/20 Range/Units 04:48 WBC (3.8-10.6) k/uL RBC (3.80-5.40) m/uL Hgb (11.4-16.0) gm/dL Hct (34.0-46.0) % MCV (80.0-100.0) fL MCH (25.0-35.0) pg MCHC (31.0-37.0) g/dL RDW (11.5-15.5) % Plt Count (150-450) k/uL MPV Neutrophils % Neutrophils % (Manual) % Lymphocytes % Lymphocytes % (Manual) % Monocytes % Monocytes % (Manual) % Eosinophils % Eosinophils % (Manual) % Basophils % Neutrophils # Neutrophils # (Manual) (1.3-7.7) k/uL Lymphocytes # Lymphocytes # (Manual) (1.0-4.8) k/uL Monocytes # Monocytes # (Manual) (0-1.0) k/uL Eosinophils # Eosinophils # (Manual) (0-0.7) k/uL Basophils # Nucleated RBCs (0-0) /100 WBC Manual Slide Review Hypersegmented Neuts Polychromasia Hypochromasia Poikilocytosis Poikilocytosis (manual Anisocytosis Anisocytosis (manual) Sodium (137-145) mmol/L Potassium (3.5-5.1) mmol/L Chloride (98-107) mmol/L Carbon Dioxide (22-30) mmol/L Anion Gap mmol/L BUN (7-17) mg/dL Creatinine (0.52-1.04) mg/dL Est GFR (CKD-EPI)AfAm (>60 ml/min/1.73 sqM) Est GFR (CKD-EPI)NonAf (>60 ml/min/1.73 sqM) Glucose (74-99) mg/dL Calcium (8.4-10.2) mg/dL Total Bilirubin (0.2-1.3) mg/dL AST (14-36) U/L ALT (4-34) U/L Alkaline Phosphatase (38-126) U/L Troponin I (0.000-0.034) ng/mL Total Protein (6.3-8.2) g/dL Albumin (3.5-5.0) g/dL TSH (0.465-4.680) mIU/L Urine Color Light Yellow Urine Appearance Clear (Clear) Urine pH 6.0 (5.0-8.0) Ur Specific [place] 1.009 (1.001-1.035) Urine Protein Negative (Negative) Urine Glucose (UA) Negative (Negative) Urine Ketones Negative (Negative) Urine Blood Negative (Negative) Urine Nitrite Negative (Negative) Urine Bilirubin Negative (Negative) Urine Urobilinogen <2.0 (<2.0) mg/dL Ur Leukocyte Esterase Trace H (Negative) Urine WBC 1 (0-5) /hpf Ur Squamous Epith Cells 1 (0-4) /hpf Urine Mucus Rare H (None) /hpf Serum Alcohol mg/dL - EKG Data -: EKG Interpreted by [place] EKG shows normal: sinus rhythm, axis (Normal), intervals (Normal), QRS complexes (Possible old septal infarct.) Rate: tachycardia (Rate approximate 123 bpm) Disposition Clinical Impression: Hypokalemia due to loss of potassium, Acute anxiety, Elevated troponin, Acute kidney injury Disposition: ADMITTED IP TO THIS HOSP Condition: Fair Instructions (If sedation given, give patient instructions): Generalized Anxiety Disorder (ED) Referrals: Ale Eli MD [Primary Care Provider] - 1-2 days
[2020-04-14] MEDS ORDERED: LEVOTHYROXINE 88 MCG TAB PO SCH (06:30)
[2020-04-14] MEDS ORDERED: ALBUTEROL NEBULIZED 2.5 MG/3 ML INHALATION PRN (08:00)
[2020-04-14] MEDS ORDERED: CHOLESTYRAMINE (WITH SUGAR) 4 GM PACKET PO SCH (09:00)
[2020-04-14] MEDS ORDERED: buPROPion XL 300 MG TAB.ER.24H PO SCH (09:00)
[2020-04-14] MEDS ORDERED: PANTOPRAZOLE 40 MG/10 ML VIAL IVP SCH (09:00)
[2020-04-14] MEDS ORDERED: SUMAtriptan succinate 50 MG TAB PO PRN (09:00)
[2020-04-14] MEDS ORDERED: FERROUS SULFATE 325 MG TAB PO SCH (09:00)
[2020-04-14] MEDS ORDERED: PANTOPRAZOLE 40 MG TABLET PO SCH (09:00)
[2020-04-14] MEDS ORDERED: hydrOXYzine pamoate 25 MG CAP PO PRN (09:00)
[2020-04-14] MEDS ORDERED: DULoxetine HCL 60 MG CAPSULE.DR PO SCH (09:00)
[2020-04-14] MEDS ORDERED: busPIRone HCl 10 MG TAB PO SCH (09:00)
[2020-04-14] MEDS: POTASSIUM CHLORIDE ER 20 MEQ TAB.ER PO SCH ×2 (09:32→16:08)
[2020-04-14 09:46] LABS: Cocaine Screen,Urine Not Detected (NotDetected); Opiate Screen,Urine Detected (NotDetected); Phencyclidine Screen,Urine Not Detected (NotDetected); Urn Cannabinoid Scrn Not Detected (NotDetected)
[2020-04-14 09:47] LABS: Amphetamine Screen,Urine Not Detected (NotDetected); Barbiturate Screen,Urine Detected (NotDetected); Benzodiazepines Screen,Urine Detected (NotDetected); Methadone Screen, Urine Not Detected (NotDetected); Oxycodone Screen, Urine Not Detected (NotDetected); Tricyclic Antidepressant,Urine Not Detected (NotDetected)
--- NOTE | 2020-04-14 10:15 | P.HPIM ---
History of Present Illness 75-year-old admitted for on possible renal dysfunction hypokalemia and elevated troponin. Patient appears to have been presented with the feelings of anxiety and lack of sleep. Although when I valid the patient patient was comparing of nausea abdominal pain burning sensation in the epigastric area. Patient says sure she doesn't have a stomachache which was removed after,. Patient is very thin built female does appear to have chronic kidney disease with baseline creatinine of around 1.7 presently around to patient is on diuretics as per nephrology doesn't have any heart failure history patient is also complaining of nonspecific pain in multiple other areas along with tingling numbness in both hands and feet patient potassium is extremely low patient is on potassium supplementation as well as diuretics at home potassium is being supplemented cardiology was consulted. Patient last bowel movement was about 3 days ago because of which I wanted to do a abdominal x-ray. although had abdominal physical exam is benign with good bowel sounds. Patient is asking for pain medications patient is on 100 g of fentanyl patch as well as [employer] [place] Review of Systems REVIEW OF SYSTEMS: CONSTITUTIONAL: No fever, no malaise, no fatigue. HEENT: No recent visual problems or hearing problems. Denied any sore throat. CARDIOVASCULAR: No chest pain, orthopnea, PND, no palpitations, no syncope. PULMONARY: No shortness of breath, no cough, no hemoptysis. GASTROINTESTINAL: As mentioned in HPI NEUROLOGICAL: No headaches, no weakness, no numbness. HEMATOLOGICAL: Denies any bleeding or petechiae. GENITOURINARY: Denies any burning micturition, frequency, or urgency. MUSCULOSKELETAL/RHEUMATOLOGICAL: Denies any joint pain, swelling, or any muscle pain. ENDOCRINE: Denies any polyuria or polydipsia. The rest of the 14-point review of systems is negative. 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 Fell in May 2019- FX HIP-LAID ON FLOOR FOR 3 DAYS hit back of head-STATES HAS SHORT TERM MEMORY PROBLEMS History of Any Multi-Drug Resistant Organisms: None Reported Past Surgical History: Back Surgery, Bowel Resection Additional Past Surgical History / Comment(s): LOWER BACK SURGERY lamene ctomy/discetomy then had a revison of that sx. 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 PT IS ABLE TO DRIVE A CAR. 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 Smoking Status: Never smoker Past Alcohol Use History: None Reported Past Drug Use History: None Reported - Past Family History Father Family Medical History: Cancer, Coronary Artery Disease (CAD) Additional Family Medical History / Comment(s): FATHER HAD BLADDER AND KIDNEY CANCER. FATHER HAD TB WHEN HE WAS A CHILD .FATHER AT AGE 87. Mother Family Medical History: Cancer Additional Family Medical History / Comment(s): MOTHER AT AGE 58 OF OVARIAN CANCER. Medications and Allergies Home Medications Medication Instructions Recorded Confirmed Type DULoxetine HCL [Cymbalta] 60 mg PO DAILY 09/17/13 04/14/20 History Folic Acid 1 mg PO DAILY@1200 #1 tablet 04/18/14 04/14/20 Rx Thiamine [Vitamin B-1] 100 mg PO DAILY@1200 #1 tablet 04/18/14 04/14/20 Rx fentaNYL 100MCG/HR PATCH 1 patch TRANSDERM Q72H 04/10/15 04/14/20 History [Duragesic 100MCG/HR] Cyanocobalamin [Vitamin B-12 1,000 mcg SQ [id number] 11/06/15 04/14/20 History Injection] Ferrous Sulfate [Iron (65 MG 650 mg PO DAILY 11/06/15 04/14/20 History Elemental)] SUMAtriptan succinate [Imitrex] 50 mg PO DAILY PRN 11/06/15 04/14/20 History buPROPion HCL [Wellbutrin XL] 300 mg PO DAILY 11/06/15 04/14/20 History Levocetirizine Dihydrochloride 5 mg PO HS 05/31/17 04/14/20 History [Xyzal] Potassium Chloride ER [K-Dur 10] 30 meq PO DAILY 04/01/19 04/14/20 History Calcium/Magnesium 250mg/300mg 1 tab PO DAILY 06/07/19 04/14/20 History Levothyroxine Sodium [Synthroid] 88 mcg PO DAILY 06/07/19 04/14/20 History calcitrioL [Calcitriol] 0.5 mcg PO MOWEFR 06/07/19 04/14/20 History Albuterol Inhaler [Ventolin Hfa 1 puff INHALATION RT-Q6H PRN 10/05/19 04/14/20 History Inhaler] Cholestyramine (with Sugar) 4 gm PO BID 10/05/19 04/14/20 History [Cholestyramine Packet] Omeprazole [PriLOSEC] 20 mg PO DAILY 10/05/19 04/14/20 History Butalb/APAP/Caff 50-325-40Mg 1 tab PO Q4H PRN #12 tablet 03/10/20 04/14/20 Rx [Fioricet 50-325-40] Furosemide [Lasix] 40 mg PO BID 04/14/20 04/14/20 History Mirtazapine [Remeron] 45 mg PO HS 04/14/20 04/14/20 History busPIRone HCL [Buspar] 30 mg PO BID 04/14/20 04/14/20 History hydrOXYzine pamoate [Vistaril] 25 mg PO TID 04/14/20 04/14/20 History Allergies Allergy/AdvReac Type Severity Reaction Status Date / Time denosumab [From Prolia] Allergy SEVERE Verified 04/14/20 08:56 CALCIUM LOSS DUST Allergy Itching Uncoded 03/27/20 04:06 MOLDS Allergy Itching Uncoded 03/27/20 04:06 Physical Exam Vitals: Vital Signs Temp Pulse Resp BP Pulse Ox 04/14/20 06:30 97.5 F L 100 16 141/69 97 04/14/20 05:41 98.0 F 105 H 18 128/75 98 04/14/20 04:25 101 H 18 122/72 99 04/14/20 03:17 97.9 F 100 16 137/51 98 Intake and Output 04/13/20 04/14/20 04/14/20 22:59 06:59 14:59 Intake Total 0 Output Total 500 Balance -500 Intake: Oral 0 Output: Urine 500 Other: Weight 39.916 kg PHYSICAL EXAMINATION: GENERAL: The patient is alert and oriented x3, not in any acute distress. Thin built cachectic female HEENT: Pupils are round and equally reacting to light. EOMI. No scleral icterus. No conjunctival pallor. Normocephalic, atraumatic. No pharyngeal erythema. No thyromegaly. CARDIOVASCULAR: S1 and S2 present. No murmurs, rubs, or gallops. PULMONARY: Chest is clear to auscultation, no wheezing or crackles. ABDOMEN: Soft, nontender, nondistended, normoactive bowel sounds. No palpable organomegaly. MUSCULOSKELETAL: No joint swelling or deformity. EXTREMITIES: No cyanosis, clubbing, or pedal edema. NEUROLOGICAL: Gross neurological examination did not reveal any focal deficits. SKIN: No rashes. Results CBC & Chem 7: 04/14/20 04:05 04/14/20 04:05 Labs: Abnormal Lab Results - Last 24 Hours (Table) 04/14/20 04/14/20 04/14/20 Range/Units 04:05 04:05 04:05 RBC 3.15 L (3.80-5.40) m/uL Hgb 8.0 L (11.4-16.0) gm/dL Hct 27.8 L (34.0-46.0) % MCHC 28.9 L (31.0-37.0) g/dL RDW 16.2 H (11.5-15.5) % Plt Count 505 H (150-450) k/uL Lymphocytes # (Manual) 0.98 L (1.0-4.8) k/uL Sodium 136 L (137-145) mmol/L Potassium 2.3 L* (3.5-5.1) mmol/L Chloride 95 L (98-107) mmol/L BUN 47 H (7-17) mg/dL Creatinine 2.07 H (0.52-1.04) mg/dL Glucose 143 H (74-99) mg/dL AST 61 H (14-36) U/L ALT 37 H (4-34) U/L Alkaline Phosphatase 174 H (38-126) U/L Troponin I 0.069 H* (0.000-0.034) ng/mL Ur Leukocyte Esterase (Negative) Urine Mucus (None) /hpf Urine Opiates Screen (NotDetected) Ur Barbiturates Screen (NotDetected) U Benzodiazepines Scrn (NotDetected) 04/14/20 04/14/20 04/14/20 Range/Units 04:48 06:54 09:05 RBC (3.80-5.40) m/uL Hgb (11.4-16.0) gm/dL Hct (34.0-46.0) % MCHC (31.0-37.0) g/dL RDW (11.5-15.5) % Plt Count (150-450) k/uL Lymphocytes # (Manual) (1.0-4.8) k/uL Sodium (137-145) mmol/L Potassium (3.5-5.1) mmol/L Chloride (98-107) mmol/L BUN (7-17) mg/dL Creatinine (0.52-1.04) mg/dL Glucose (74-99) mg/dL AST (14-36) U/L ALT (4-34) U/L Alkaline Phosphatase (38-126) U/L Troponin I 0.076 H* (0.000-0.034) ng/mL Ur Leukocyte Esterase Trace H (Negative) Urine Mucus Rare H (None) /hpf Urine Opiates Screen Detected H (NotDetected) Ur Barbiturates Screen Detected H (NotDetected) U Benzodiazepines Scrn Detected H (NotDetected) Thrombosis Risk Factor Assmnt - Choose All That Apply Each Risk Factor Represents 2 Points: Age 61-74 years Thrombosis Risk Factor Assessment Total Risk Factor Score: 2 Thrombosis Risk Factor Assessment Level: Low Risk Assessment and Plan Plan: -Abdominal pain: May be related to gastritis patient will be started on Protonix patient will be started on a diet and if he is able to tolerate diet patient can be discharged abdominal x-ray will be obtained because of her constipation to make sure patient doesn't have a bowel obstruction although clinically patient's abdomen is soft does have bowel sounds. -Constipation seconded opiates -Severe hypokalemia secondary to diuretics and potassium will be replaced Mild acute renal failure secondary to diuretics headaches will be held and patient will continued on IV fluids --Chronic kidney disease stage III baseline creatinine around 1.7. -Gastroesophageal reflux disease -Anxiety and depression patient is on Floxin which will be continued -Chronic pain patient will be resumed on home medications will benefit the pharmacy patient had history of abusing narcotics in the past -History of migraine as per the patient -Elevated troponin secondary to renal dysfunction and chronic kidney disease cleared by cardiology patient will be discharged -DVT prophylaxis with subcutaneous heparin
[2020-04-14 10:36] LABS: Calcium 8.5 mg/dL (8.4-10.2)
[2020-04-14 10:38] LABS: Potassium 2.8 mmol/L (3.5-5.1)
--- NOTE | 2020-04-14 11:06 | P.CRDCN ---
History of Present Illness Consult date: 04/14/20 History of present illness: CHIEF COMPLAINT: Abnormal troponin HISTORY OF PRESENT ILLNESS: This is a 75-year-old female with a past medical history significant for chronic kidney disease, anxiety, and depression. 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 We have been asked to see the patient in consultation for abnormal troponin. Patient examined this morning at the bedside. Patient initially presented to the hospital secondary to anxiety and pain. Patient reports she has chronic pain and has a fentanyl patch on at the time of examination. She complains of pain in her arms, legs, back, and head. She denies any chest pain or pressure. She denies any shortness of breath. Patient was found to be hypokalemic on admission. Supplementation was ordered. Patient reports she has been throwing up at home for the past week. DIAGNOSTICS: EKG reveals sinus rhythm with no signs of acute ischemia Laboratory data: W BC 7.0. Hemoglobin 8.0. Platelet count 505. Sodium 136. Potassium 2.3. BUN 47. Creatinine 2.07. Troponin 0.069. 0.076. 0.072. Current home cardiac medications include Lasix 40 mg twice a day REVIEW OF SYSTEMS: At the time of my exam: CONSTITUTIONAL: Denies fever or chills. HEENT: Denies blurred vision, vision changes, or eye pain. Denies hemoptysis CARDIOVASCULAR: Denies chest pain, orthopnea, PND or palpitations RESPIRATORY: No shortness of breath. GASTROINTESTINAL: Denies abdominal pain. Denies nausea or vomiting. HEMATOLOGIC: Denies bleeding disorders. GENITOURINARY: Denies any blood in urine. SKIN: Denies pruitis. Denies rash. PHYSICAL EXAM: VITAL SIGNS: Reviewed. GENERAL: Well-developed in no acute distress. HEENT: Head is normocephalic. Pupils are equal, round. Sclerae anicteric. Mucous membranes of the mouth are moist. Neck supple. No JVD or thyromegaly LUNGS: Respirations even and unlabored. Lungs essentially clear to auscultation bilaterally. HEART: Regular rate and rhythm. S1 and S2 heard. ABDOMEN: Soft. Nondistended. Nontender. EXTREMITIES: Normal range of motion. No clubbing or cyanosis. Peripheral pulses intact. No lower extremity edema NEUROLOGIC: Awake and alert. Oriented x 3. ASSESSMENT: Abdominal pain with vomiting x 1 week Hypokalemia Acute kidney injury Chronic kidney disease Abnormal troponin, flat, not suggestive of ACS, likely secondary to worsening renal function Anxiety Depression Chronic pain PLAN: Acute coronary event has been ruled out Obtain 2D echo to assess cardiac structure and function Replace potassium If no significant abnormalities noted on echocardiogram, patient may be discharged home from a cardiac standpoint. Nurse practitioner note has been reviewed by physician. Signing provider agrees with the documented findings, assessment, and plan of care. 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 Fell in May 2019-FX HIP-LAID ON FLOOR FOR 3 DAYS hit back of head-STATES HAS SHORT TERM MEMORY PROBLEMS History of Any Multi-Drug Resistant Organisms: None Reported Past Surgical History: Back Surgery, Bowel Resection Additional Past Surgical History / Comment(s): LOWER BACK SURGERY lamenectomy/discetomy then had a revison of that sx. 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 PT IS ABLE TO DRIVE A CAR. 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 Smoking Status: Never smoker Past Alcohol Use History: None Reported Past Drug Use History: None Reported - Past Family History Father Family Medical History: Cancer, Coronary Artery Disease (CAD) Additional Family Medical History / Comment(s): FATHER HAD BLADDER AND KIDNEY CANCER. FATHER HAD TB WHEN HE WAS A CHILD .FATHER AT AGE 87. Mother Family Medical History: Cancer Additional Family Medical History / Comment(s): MOTHER AT AGE 58 OF OVARIAN CANCER. Medications and Allergies Home Medications Medication Instructions Recorded Confirmed Type DULoxetine HCL [Cymbalta] 60 mg PO DAILY 09/17/13 04/14/20 History Folic Acid 1 mg PO DAILY@1200 #1 tablet 04/18/14 04/14/20 Rx Thiamine [Vitamin B-1] 100 mg PO DAILY@1200 #1 tablet 04/18/14 04/14/20 Rx fentaNYL 100MCG/HR PATCH 1 patch TRANSDERM Q72H 04/10/15 04/14/20 History [Duragesic 100MCG/HR] Cyanocobalamin [Vitamin B-12 1,000 mcg SQ [id number] 11/06/15 04/14/20 History Injection] Ferrous Sulfate [Iron (65 MG 650 mg PO DAILY 11/06/15 04/14/20 History Elemental)] SUMAtriptan succinate [Imitrex] 50 mg PO DAILY PRN 11/06/15 04/14/20 History buPROPion HCL [Wellbutrin XL] 300 mg PO DAILY 11/06/15 04/14/20 History Levocetirizine Dihydrochloride 5 mg PO HS 05/31/17 04/14/20 History [Xyzal] Potassium Chloride ER [K-Dur 10] 30 meq PO DAILY 04/01/19 04/14/20 History Calcium/Magnesium 250mg/300mg 1 tab PO DAILY 06/07/19 04/14/20 History Levothyroxine Sodium [Synthroid] 88 mcg PO DAILY 06/07/19 04/14/20 History calcitrioL [Calcitriol] 0.5 mcg PO MOWEFR 06/07/19 04/14/20 History Albuterol Inhaler [Ventolin Hfa 1 puff INHALATION RT-Q6H PRN 10/05/19 04/14/20 History Inhaler] Cholestyramine (with Sugar) 4 gm PO BID 10/05/19 04/14/20 History [Cholestyramine Packet] Omeprazole [PriLOSEC] 20 mg PO DAILY 10/05/19 04/14/20 History Butalb/APAP/Caff 50-325-40Mg 1 tab PO Q4H PRN #12 tablet 03/10/20 04/14/20 Rx [Fioricet 50-325-40] Furosemide [Lasix] 40 mg PO BID 04/14/20 04/14/20 History Mirtazapine [Remeron] 45 mg PO HS 04/14/20 04/14/20 History busPIRone HCL [Buspar] 30 mg PO BID 04/14/20 04/14/20 History hydrOXYzine pamoate [Vistaril] 25 mg PO TID 04/14/20 04/14/20 History Allergies Allergy/AdvReac Type Severity Reaction Status Date / Time denosumab [From Prolia] Allergy SEVERE Verified 04/14/20 08:56 CALCIUM LOSS DUST Allergy Itching Uncoded 03/27/20 04:06 MOLDS Allergy Itching Uncoded 03/27/20 04:06 Physical Exam Vitals: Vital Signs Temp Pulse Resp BP Pulse Ox 04/14/20 06:30 97.5 F L 100 16 141/69 97 04/14/20 05:41 98.0 F 105 H 18 128/75 98 04/14/20 04:25 101 H 18 122/72 99 04/14/20 03:17 97.9 F 100 16 137/51 98 Intake and Output 04/13/20 04/14/20 04/14/20 22:59 06:59 14:59 Intake Total 0 Output Total 500 Balance -500 Intake: Oral 0 Output: Urine 500 Other: Weight 39.916 kg Results 04/14/20 04:05 04/14/20 10:02 Cardiac Enzymes 04/14/20 04/14/20 04/14/20 Range/Units 04:05 04:05 06:54 AST 61 H (14-36) U/L Troponin I 0.069 H* 0.076 H* (0.000-0.034) ng/mL 04/14/20 Range/Units 10:02 AST (14-36) U/L Troponin I 0.072 H* (0.000-0.034) ng/mL CBC 04/14/20 Range/Units 04:05 WBC 7.0 (3.8-10.6) k/uL RBC 3.15 L (3.80-5.40) m/uL Hgb 8.0 L (11.4-16.0) gm/dL Hct 27.8 L (34.0-46.0) % Plt Count 505 H (150-450) k/uL Comprehensive Metabolic Panel 04/14/20 04/14/20 Range/Units 04:05 10:02 Sodium 136 L 138 (137-145) mmol/L Potassium 2.3 L* 2.8 L (3.5-5.1) mmol/L Chloride 95 L 98 (98-107) mmol/L Carbon Dioxide 30 30 (22-30) mmol/L BUN 47 H 44 H (7-17) mg/dL Creatinine 2.07 H 1.98 H (0.52-1.04) mg/dL Glucose 143 H 139 H (74-99) mg/dL Calcium 8.4 8.5 (8.4-10.2) mg/dL AST 61 H (14-36) U/L ALT 37 H (4-34) U/L Alkaline Phosphatase 174 H (38-126) U/L Total Protein 6.7 (6.3-8.2) g/dL Albumin 4.2 (3.5-5.0) g/dL Current Medications Generic Name Dose Route Start Last Admin Trade Name Freq PRN Reason Stop Dose Admin Acetaminophen/Butalbital/Caffeine 1 each 04/14/20 08:00 Butalb/Apap/Caff 50-325-40mg Tab PO Q4HR PRN Headache Albuterol Sulfate 2.5 mg 04/14/20 08:00 Albuterol Nebulized 2.5 Mg/3 Ml INHALATION RT-Q6H PRN Shortness Of Breath Bupropion HCl 300 mg 04/14/20 09:00 04/14/20 09:32 Bupropion Xl 300 Mg Tab.Er.24h PO 300 mg DAILY CHAD Administration Buspirone HCl 30 mg 04/14/20 09:00 04/14/20 09:31 Buspirone Hcl 10 Mg Tab PO 30 mg BID CHAD Administration Cholestyramine Resin 4 gm 04/14/20 09:00 04/14/20 09:32 Cholestyramine (With Sugar) 4 Gm Packet PO 4 gm BID CHAD Administration Dronabinol 5 mg 04/14/20 09:00 04/14/20 09:32 Dronabinol 2.5 Mg Cap PO 5 mg QID CHAD Administration Duloxetine HCl 60 mg 04/14/20 09:00 04/14/20 09:32 Duloxetine Hcl 60 Mg Capsule.Dr PO 60 mg DAILY CHAD Administration Ergocalciferol 50,000 unit 04/18/20 09:00 Ergocalciferol 50,000 Unit Cap PO Q30D CHAD Fentanyl 1 patch 04/16/20 09:00 Fentanyl 100mcg/Hr Patch TRANSDERM Q72H CHAD Ferrous Sulfate 650 mg 04/14/20 09:00 04/14/20 09:32 Ferrous Sulfate 325 Mg Tab PO 650 mg DAILY CHAD Administration Folic Acid 1 mg 04/14/20 12:00 Folic Acid 1 Mg Tab PO DAILY@1200 [facility] Heparin Sodium (Porcine) 5,000 unit 04/14/20 21:00 Heparin Sodium,Porcine 5,000 Unit/Ml 1 Ml Vial SQ Q12HR [facility] Hydroxyzine Pamoate 50 mg 04/14/20 09:00 Hydroxyzine Pamoate 25 Mg Cap PO TID PRN Anxiety Levothyroxine Sodium 88 mcg 04/14/20 06:30 04/14/20 06:38 Levothyroxine 88 Mcg Tab PO Not Given DAILY@0630 [facility] Loratadine 10 mg 04/14/20 21:00 Loratadine 10 Mg Tab PO HS [facility] Mirtazapine 60 mg 04/14/20 21:00 Mirtazapine 15 Mg Tab PO HS [facility] Nitroglycerin 0.4 mg 04/14/20 05:27 Nitroglycerin Sl Tabs 0.4 Mg Tab SUBLINGUAL Q5M PRN Chest Pain Pantoprazole Sodium 40 mg 04/14/20 09:00 04/14/20 09:33 Pantoprazole 40 Mg/10 Ml Vial IVP 40 mg BID [facility] Administration Potassium Chloride 40 meq 04/14/20 09:00 04/14/20 09:32 Potassium Chloride Er 20 Meq Tab.Er PO 40 meq TID [facility] Administration Sumatriptan Succinate 50 mg 04/14/20 09:00 Sumatriptan Succinate 50 Mg Tab PO DAILY PRN Migraine Headache Thiamine HCl 100 mg 04/14/20 12:00 Thiamine 100 Mg Tab PO DAILY@1200 [facility] Intake and Output 04/13/20 04/14/20 04/14/20 22:59 06:59 14:59 Intake Total 0 Output Total 500 Balance -500 Intake: Oral 0 Output: Urine 500 Other: Weight 39.916 kg 04/14/20 04:05 04/14/20 10:02
[2020-04-14 11:30] VITALS: TEMP 98
[2020-04-14] MEDS ORDERED: THIAMINE 100 MG TAB PO SCH (12:00)
[2020-04-14] MEDS ORDERED: FOLIC ACID 1 MG TAB PO SCH (12:00)
[2020-04-14] MEDS: BUTALB/APAP/CAFF 50-325-40MG TAB PO PRN ×2 (12:16→16:31)
[2020-04-14 13:57] VITALS: BMI 16.0
--- NOTE | 2020-04-14 14:03 | P.DS ---
Providers Date of admission: 04/14/20 05:27 Attending physician: Ami Ojeda MD Consults: 04/14/20 05:27 Consult Physician Routine Consulting Provider: Court Almanzar Consult Reason/Comments: Elevated troponin Do you want consulting provider notified?: Yes [facility] Course: Please refer to HPI that was dictated today for further details. We have a repeat basic metabolic profile which showed improved but I simply 2.8 patient will be given 60 mEq we'll repeat the potassium. If potassium is about 3.8 patient will be discharged. Patient will be asked to hold off on Lasix for today and tomorrow. Patient is to closely follow with nephrology patient creatinine did improve a bit. I'm increasing her home dose of potassium to 40 mEq. Patient is able to tolerate the diet. Patient is on cholestyramine which may be contributing to her constipation along with opiates. Patient will be given MiraLAX, cholestyramine will be discontinued. He was evaluated by cardiology for mildly elevated troponins which is secondary to chronic kidney disease. Patient was cleared from cardiology perspective. Patient declined any abdominal x-ray patient able to tolerate diet and abdominal exam is benign patient will be discharged today and we will increase the Prilosec to twice a day Patient Condition at Discharge: Fair Plan - Discharge Summary Discharge Rx Participant: No New Discharge Prescriptions: New dronabinoL [Marinol] 5 mg PO BID #30 cap polyethylene glycoL 3350 [Miralax] 17 gm PO DAILY PRN #15 packet PRN Reason: Constipation Continue DULoxetine HCL [Cymbalta] 60 mg PO DAILY Folic Acid 1 mg PO DAILY@1200 #1 tablet Thiamine [Vitamin B-1] 100 mg PO DAILY@1200 #1 tablet fentaNYL 100MCG/HR PATCH [Duragesic 100MCG/HR] 1 patch TRANSDERM Q72H SUMAtriptan succinate [Imitrex] 50 mg PO DAILY PRN PRN Reason: Migraine Headache buPROPion HCL [Wellbutrin XL] 300 mg PO DAILY Ferrous Sulfate [Iron (65 MG Elemental)] 650 mg PO DAILY Cyanocobalamin [Vitamin B-12 Injection] 1,000 mcg SQ [id number] Levocetirizine Dihydrochloride [Xyzal] 5 mg PO HS Calcium/Magnesium 250mg/300mg 1 tab PO DAILY calcitrioL [Calcitriol] 0.5 mcg PO MOWEFR Levothyroxine Sodium [Synthroid] 88 mcg PO DAILY Albuterol Inhaler [Ventolin Hfa Inhaler] 1 puff INHALATION RT-Q6H PRN PRN Reason: Shortness Of Breath Butalb/APAP/Caff 50-325-40Mg [Fioricet 50-325-40] 1 tab PO Q4H PRN #12 tablet PRN Reason: Headache busPIRone HCL [Buspar] 30 mg PO BID Mirtazapine [Remeron] 45 mg PO HS Furosemide [Lasix] 40 mg PO BID #0 Changed Potassium Chloride ER [K-Dur 10] 40 meq PO DAILY #0 Omeprazole [PriLOSEC] 20 mg PO BID #0 Discontinued Cholestyramine (with Sugar) [Cholestyramine Packet] 4 gm PO BID hydrOXYzine pamoate [Vistaril] 25 mg PO TID Discharge Medication List DULoxetine HCL [Cymbalta] 60 mg PO DAILY 09/17/13 [History] Folic Acid 1 mg PO DAILY@1200 #1 tablet 04/18/14 [Rx] Thiamine [Vitamin B-1] 100 mg PO DAILY@1200 #1 tablet 04/18/14 [Rx] fentaNYL 100MCG/HR PATCH [Duragesic 100MCG/HR] 1 patch TRANSDERM Q72H 04/10/15 [History] Cyanocobalamin [Vitamin B-12 Injection] 1,000 mcg SQ [id number] 11/06/15 [History] Ferrous Sulfate [Iron (65 MG Elemental)] 650 mg PO DAILY 11/06/15 [History] SUMAtriptan succinate [Imitrex] 50 mg PO DAILY PRN 11/06/15 [History] buPROPion HCL [Wellbutrin XL] 300 mg PO DAILY 11/06/15 [History] Levocetirizine Dihydrochloride [Xyzal] 5 mg PO HS 05/31/17 [History] Calcium/Magnesium 250mg/300mg 1 tab PO DAILY 06/07/19 [History] Levothyroxine Sodium [Synthroid] 88 mcg PO DAILY 06/07/19 [History] calcitrioL [Calcitriol] 0.5 mcg PO MOWEFR 06/07/19 [History] Albuterol Inhaler [Ventolin Hfa Inhaler] 1 puff INHALATION RT-Q6H PRN 10/05/19 [History] Butalb/APAP/Caff 50-325-40Mg [Fioricet 50-325-40] 1 tab PO Q4H PRN #12 tablet 03/10/20 [Rx] Furosemide [Lasix] 40 mg PO BID #0 04/14/20 [Rx] Mirtazapine [Remeron] 45 mg PO HS 04/14/20 [History] Omeprazole [PriLOSEC] 20 mg PO BID #0 04/14/20 [Rx] Potassium Chloride ER [K-Dur 10] 40 meq PO DAILY #0 04/14/20 [Rx] busPIRone HCL [Buspar] 30 mg PO BID 04/14/20 [History] dronabinoL [Marinol] 5 mg PO BID #30 cap 04/14/20 [Rx] polyethylene glycoL 3350 [Miralax] 17 gm PO DAILY PRN #15 packet 04/14/20 [Rx] Follow up Appointment(s)/Referral(s): Ale Eli MD [Primary Care Provider] - 3 Days Ambulatory/Diagnostic Orders: Basic Metabolic Panel [LAB.AMB] Time Frame: 3 Days, Location: None Selected Patient Instructions/Handouts: Generalized Anxiety Disorder (ED) Discharge Disposition: HOME SELF-CARE
--- NOTE | 2020-04-14 15:08 | ECHOF ---
Referral Reason:LV function MEASUREMENTS -------- HEIGHT: 157.5 cm WEIGHT: 39.9 kg BP: 141/69 RVIDd: 2.9 cm (< 3.3) IVSd: 1.0 cm (0.6 - 1.1) LVIDd: 2.3 cm (3.9 - 5.3) LVPWd: 1.0 cm (0.6 - 1.1) IVSs: 1.1 cm LVIDs: 1.5 cm LVPWs: 1.2 cm LAESV Index (A-L): 23.66 ml/m MV E Ric: 0.75 m/s MV DecT: 182 ms MV A Ric: 1.15 m/s MV E/A Ratio: 0.65 RAP: 5.00 mmHg RVSP: 25.68 mmHg FINDINGS -------- Sinus rhythm. This was a technically difficult study with suboptimal parasternal views. Pt. not compliant. The left ventricular size is normal. There is mild concentric left ventricular hypertrophy. Overa ll left ventricular systolic function is normal with, an EF between 60 - 65 %. The right ventricle is normal in size. Normal LA size by volume 22+/-6 ml/m2. The right atrial size is normal. Interatrial and interventricular septum intact. The aortic valve was not well visualized. There is no evidence of aortic regurgitation. There is no evidence of aortic stenosis. The mitral valve was not well visualized. Mild mitral annular calcification present. Mild mitral regurgitation is present. Mild tricuspid regurgitation present. There is no evidence of pulmonary hypertension. The right v entricular systolic pressure, as measured by Doppler, is 25.68mmHg. There is no pulmonic regurgitation present. IVC Not well visulized. There is no pericardial effusion. CONCLUSIONS -------- 1. The left ventricular size is normal. 2. There is mild concentric left ventricular hypertrophy. 3. Overall left ventricular systolic function is normal with, an EF between 60 - 65 %. 4. Mild mitral annular calcification present. 5. Mild mitral regurgitation is present. 6. Mild tricuspid regurgitation present. COMB WINDER: Grace Sweeney [facility]
[2020-04-14 17:10] VITALS: BP 131/82; PULSE 97; RESP 16
[2020-04-14] MEDS ORDERED: LORATADINE 10 MG TAB PO SCH (21:00)
[2020-04-14] MEDS ORDERED: MIRTAZAPINE 15 MG TAB PO SCH (21:00)
[2020-04-14] MEDS ORDERED: HEPARIN SODIUM,PORCINE 5,000 UNIT/ML 1 ML VIAL SQ SCH (21:00)
[2020-04-15] MEDS ORDERED: ASPIRIN 325 MG TAB PO SCH (09:00)
[2020-04-15] MEDS ORDERED: metOLazone 2.5 MG TAB PO SCH (09:00)
[2020-04-18] MEDS ORDERED: ERGOCALCIFEROL 50,000 UNIT CAP PO SCH (09:00)
== END 2020-04-14 19:05 | disposition home or self-care (01) | DRG 641 ==
LOC: EC 03:14 → 3SCARD 05:27
PROVIDERS: ADMIT Internal Medicine; ATTEND Internal Medicine
DX: E87.6 Hypokalemia (principal); N17.9 Acute kidney failure, unspecified; N18.30 Chronic kidney disease, stage 3 unspecified; F32.9 Major depressive disorder, single episode, unspecified; Z20.828 Contact with and (suspected) exposure to other viral communicable diseases; F41.0 Panic disorder [episodic paroxysmal anxiety]; G89.29 Other chronic pain; J45.909 Unspecified asthma, uncomplicated; K21.9 Gastro-esophageal reflux disease without esophagitis; K59.03 Drug induced constipation; T40.605A Adverse effect of unspecified narcotics, initial encounter; T46.6X5A Adverse effect of antihyperlipidemic and antiarteriosclerotic drugs, initial encounter; T50.2X5A Adverse effect of carbonic-anhydrase inhibitors, benzothiadiazides and other diuretics, initial encounter; G43.909 Migraine, unspecified, not intractable, without status migrainosus; M47.812 Spondylosis without myelopathy or radiculopathy, cervical region; M47.899 Other spondylosis, site unspecified; R79.89 Other specified abnormal findings of blood chemistry; K29.70 Gastritis, unspecified, without bleeding; Z79.890 Hormone replacement therapy; Z79.899 Other long term (current) drug therapy; Z86.73 Personal history of transient ischemic attack (TIA), and cerebral infarction without residual deficits; Z91.81 History of falling; Z87.11 Personal history of peptic ulcer disease; Z88.8 Allergy status to other drugs, medicaments and biological substances; Z86.718 Personal history of other venous thrombosis and embolism; Z87.39 Personal history of other diseases of the musculoskeletal system and connective tissue; Z90.49 Acquired absence of other specified parts of digestive tract; Z98.890 Other specified postprocedural states; Z80.41 Family history of malignant neoplasm of ovary; Z80.51 Family history of malignant neoplasm of kidney; Z80.52 Family history of malignant neoplasm of bladder; Z84.89 Family history of other specified conditions; Z82.49 Family history of ischemic heart disease and other diseases of the circulatory system
CPT/HCPCS: 36415; 80048; 80053; 80306; 80320; 81001; 84132; 84443; 84484; 85025; 87635; 93005; 93306; 99284

== ENCOUNTER 2020-04-18 12:59 | Inpatient (IN) | payer MEDICARE, OTHER ==
[2020-04-18] MEDS ORDERED: ACETAMINOPHEN TAB 325 MG TAB PO STA (13:27)
[2020-04-18] MEDS ORDERED: LORazepam 2 MG/ML INJ IV STA (13:28)
--- NOTE | 2020-04-18 13:36 | ED ---
General Adult HPI - General Chief complaint: Weakness Stated complaint: Twitching Time Seen by Provider: 04/18/20 13:15 Source: patient, EMS, RN notes reviewed, old records reviewed Mode of arrival: EMS Limitations: no limitations - History of Present Illness Initial comments: This is a 75-year-old female who presents emergency department stating that she just doesn't feel well and she doesn't think she can take care of himself. Patient states she was recently discharged from the hospital on the with low potassium and per her kidney issues. Patient states ever since she went home she's not feeling that she has been unable take her potassium because the pills are too big it feels extremely nervous and states she is shaking and can't stop. Patient states she's also had a little bit of a cough. Some dysuria. Patient denies any chest pain or palpitations. Patient denies lightheadedness or dizziness. Patient denies any abdominal pain. He denies any nausea vomiting diarrhea. - Related Data Home Medications Medication Instructions Recorded Confirmed DULoxetine HCL [Cymbalta] 60 mg PO DAILY 09/17/13 04/18/20 fentaNYL 100MCG/HR PATCH 1 patch TRANSDERM Q72H 04/10/15 04/18/20 [Duragesic 100MCG/HR] Cyanocobalamin [Vitamin B-12 1,000 mcg SQ Q30D 11/06/15 04/18/20 Injection] Ferrous Sulfate [Iron (65 MG 650 mg PO DAILY 11/06/15 04/18/20 Elemental)] buPROPion HCL [Wellbutrin XL] 300 mg PO DAILY 11/06/15 04/18/20 Levocetirizine Dihydrochloride 5 mg PO HS 05/31/17 04/18/20 [Xyzal] Calcium/Magnesium 250mg/300mg 1 tab PO DAILY 06/07/19 04/18/20 Levothyroxine Sodium [Synthroid] 88 mcg PO DAILY 06/07/19 04/18/20 calcitrioL [Calcitriol] 1 mcg PO MOWEFR 06/07/19 04/18/20 Albuterol Inhaler [Ventolin Hfa 1 puff INHALATION RT-Q6H PRN 10/05/19 04/18/20 Inhaler] Mirtazapine [Remeron] 45 mg PO HS 04/14/20 04/18/20 busPIRone HCL [Buspar] 30 mg PO BID 04/14/20 04/18/20 Cholestyramine (with Sugar) 4 gm PO BID 04/18/20 04/18/20 [Cholestyramine Powder] Ergocalciferol [Vitamin D2] 50,000 unit PO Q28D 04/18/20 04/18/20 Folic Acid 1 mg PO DAILY 04/18/20 04/18/20 Furosemide [Lasix] 20 mg PO DAILY 04/18/20 04/18/20 HYDROcodone/APAP 5-325MG [Boaz 1 tab PO Q6H PRN 04/18/20 04/18/20 5-325] Omeprazole [PriLOSEC] 20 mg PO DAILY 04/18/20 04/18/20 Potassium Chloride ER [K-Dur 10] 30 meq PO DAILY 04/18/20 04/18/20 Thiamine [Vitamin B-1] 100 mg PO DAILY 04/18/20 04/18/20 hydrOXYzine pamoate [hydrOXYzine 25 mg PO TID 04/18/20 04/18/20 PAMOATE] Previous Rx's Medication Instructions Recorded dronabinoL [Marinol] 5 mg PO BID #30 cap 04/14/20 Allergies Allergy/AdvReac Type Severity Reaction Status Date / Time denosumab [From Prolia] Allergy SEVERE Verified 04/18/20 14:52 CALCIUM LOSS DUST Allergy Itching Uncoded 04/18/20 14:52 MOLDS Allergy Itching Uncoded 04/18/20 14:52 Review of Systems ROS Statement: Those systems with pertinent positive or pertinent negative responses have been documented in the HPI. ROS Other: All systems not noted in ROS Statement are negative. 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 Fell in May 2019- FX HIP-LAID ON FLOOR FOR 3 DAYS hit back of head-STATES HAS SHORT TERM MEMORY PROBLEMS History of Any Multi-Drug Resistant Organisms: None Reported Past Surgical History: Back Surgery, Bowel Resection Additional Past Surgical History / Comment(s): LOWER BACK SURGERY lamenectomy/discetomy then had a revison of that sx. 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, nasal sx d/t broken nose, colonoscopy/egd, PAIN CLINIC PROCEDURES Past Anesthesia/Blood Transfusion Reactions: No Reported Reaction Additional Past Anesthesia/Blood Transfusion Reaction / Comment(s): PT RECIEVED BLOOD TRANSFUSIONS AFTER STOMACH SURGERY Past Psychological History: Anxiety, Depression, Panic Disorder Smoking Status: Never smoker Past Alcohol Use History: None Reported Past Drug Use History: None Reported - Past Family History Father Family Medical History: Cancer, Coronary Artery Disease (CAD) Additional Family Medical History / Comment(s): FATHER HAD BLADDER AND KIDNEY CANCER. FATHER HAD TB WHEN HE WAS A CHILD .FATHER AT AGE 87. Mother Family Medical History: Cancer Additional Family Medical History / Comment(s): MOTHER AT AGE 58 OF OVARIAN CANCER. General Exam - General Exam Comments Initial Comments: GENERAL: Patient is well-developed and well-nourished. Patient is nontoxic and well- hydrated and is in mild distress. ENT: Neck is soft and supple. No significant lymphadenopathy is noted. Oropharynx is clear. Moist mucous membranes. Neck has full range of motion without eliciting any pain. EYES: The sclera were anicteric and conjunctiva were pink and moist. Extraocular movements were intact and pupils were equal round and reactive to light. Eyelids were unremarkable. PULMONARY: Unlabored respirations. Good breath sounds bilaterally. No audible rales rhonchi or wheezing was noted. CARDIOVASCULAR: Patient is tachycardic at 120 beats a minute. ABDOMEN: Soft and nontender with normal bowel sounds. SKIN: Skin is clear with no lesions or rashes and otherwise unremarkable. NEUROLOGIC: Patient is alert and oriented x3. Cranial nerves II through XII are grossly intact. Motor and sensory are also intact. Normal speech, volume and content. Symmetrical smile. MUSCULOSKELETAL: Normal extremities with adequate strength and full range of motion. LYMPHATICS: No significant lymphadenopathy is noted PSYCHIATRIC: Patient seems very anxious and shaking. Because of her shaking I took her te mperature was 100.9 Limitations: no limitations Course Vital Signs 04/18/20 04/18/20 04/18/20 13:11 13:27 14:00 Temperature 99.5 F 100.5 F H Pulse Rate 115 H 106 H Respiratory 22 20 Rate Blood Pressure 135/75 101/61 O2 Sat by Pulse 96 100 Oximetry Medical Decision Making - Medical Decision Making EKG shows sinus tachycardia at 170 bpm FL interval is 1:30 QRS is 60 QT interval 314 QTC is 4:[address] segment elevation or depression. Chest x-ray shows a right upper lobe pneumonia. Patient started on Rocephin. Patient's d-dimer came back 2.18 was elevated she did not have good kidney function so CAT scan could not be done. Heparin could not be started because of her significant drop in hemoglobin. I spoke with Dr. Ford agreed to admit the patient admitted the patient I wrote admitting orders - Lab Data Result diagrams: 04/18/20 13:40 04/18/20 13:40 Lab Results 04/18/20 04/18/20 04/18/20 Range/Units 13:40 13:40 13:40 WBC 6.7 (3.8-10.6) k/uL RBC 2.02 L (3.80-5.40) m/uL Hgb 5.3 L* D (11.4-16.0) gm/dL Hct 17.5 L* (34.0-46.0) % MCV 86.6 (80.0-100.0) fL MCH 26.1 (25.0-35.0) pg MCHC 30.1 L (31.0-37.0) g/dL RDW 16.5 H (11.5-15.5) % Plt Count 286 (150-450) k/uL MPV 7.4 Neutrophils % 75 % Lymphocytes % 14 % Monocytes % 6 % Eosinophils % 2 % Basophils % 1 % Neutrophils # 5.0 (1.3-7.7) k/uL Lymphocytes # 1.0 (1.0-4.8) k/uL Monocytes # 0.4 (0-1.0) k/uL Eosinophils # 0.1 (0-0.7) k/uL Basophils # 0.1 (0-0.2) k/uL Hypochromasia Marked Poikilocytosis Moderate Anisocytosis Slight PT 9.5 (9.0-12.0) sec INR 0.9 (<1.2) APTT 21.8 L (22.0-30.0) sec D-Dimer 2.18 H (<0.60) mg/L FEU Sodium 139 (137-145) mmol/L Potassium 4.7 (3.5-5.1) mmol/L Chloride 103 (98-107) mmol/L Carbon Dioxide 30 (22-30) mmol/L Anion Gap 6 mmol/L BUN 45 H (7-17) mg/dL Creatinine 1.78 H (0.52-1.04) mg/dL Est GFR (CKD-EPI)AfAm 32 (>60 ml/min/1.73 sqM) Est GFR (CKD-EPI)NonAf 28 (>60 ml/min/1.73 sqM) Glucose 108 H (74-99) mg/dL Plasma Lactic Acid Jonah (0.7-2.0) mmol/L Calcium 8.9 (8.4-10.2) mg/dL Magnesium 2.0 (1.6-2.3) mg/dL Total Bilirubin 0.3 (0.2-1.3) mg/dL AST 27 (14-36) U/L ALT 26 (4-34) U/L Alkaline Phosphatase 142 H (38-126) U/L Lactate Dehydrogenase 600 (313-618) U/L Troponin I (0.000-0.034) ng/mL C-Reactive Protein <5.0 (<10.0) mg/L Total Protein 5.6 L (6.3-8.2) g/dL Albumin 3.4 L (3.5-5.0) g/dL Urine Color Urine Appearance (Clear) Urine pH (5.0-8.0) Ur Specific Barry (1.001-1.035) Urine Protein (Negative) Urine Glucose (UA) (Negative) Urine Ketones (Negative) Urine Blood (Negative) Urine Nitrite (Negative) Urine Bilirubin (Negative) Urine Urobilinogen (<2.0) mg/dL Ur Leukocyte Esterase (Negative) Stool Occult Blood (Negative) 04/18/20 04/18/20 04/18/20 Range/Units 13:40 13:40 13:40 WBC (3.8-10.6) k/uL RBC (3.80-5.40) m/uL Hgb (11.4-16.0) gm/dL Hct (34.0-46.0) % MCV (80.0-100.0) fL MCH (25.0-35.0) pg MCHC (31.0-37.0) g/dL RDW (11.5-15.5) % Plt Count (150-450) k/uL MPV Neutrophils % % Lymphocytes % % Monocytes % % Eosinophils % % Basophils % % Neutrophils # (1.3-7.7) k/uL Lymphocytes # (1.0-4.8) k/uL Monocytes # (0-1.0) k/uL Eosinophils # (0-0.7) k/uL Basophils # (0-0.2) k/uL Hypochromasia Poikilocytosis Anisocytosis PT (9.0-12.0) sec INR (<1.2) APTT (22.0-30.0) sec D-Dimer (<0.60) mg/L FEU Sodium (137-145) mmol/L Potassium (3.5-5.1) mmol/L Chloride (98-107) mmol/L Carbon Dioxide (22-30) mmol/L Anion Gap mmol/L BUN (7-17) mg/dL Creatinine (0.52-1.04) mg/dL Est GFR (CKD-EPI)AfAm (>60 ml/min/1.73 sqM) Est GFR (CKD-EPI)NonAf (>60 ml/min/1.73 sqM) Glucose (74-99) mg/dL Plasma Lactic Acid Jonah 1.6 (0.7-2.0) mmol/L Calcium (8.4-10.2) mg/dL Magnesium (1.6-2.3) mg/dL Total Bilirubin (0.2-1.3) mg/dL AST (14-36) U/L ALT (4-34) U/L Alkaline Phosphatase (38-126) U/L Lactate Dehydrogenase (313-618) U/L Troponin I 0.015 (0.000-0.034) ng/mL C-Reactive Protein (<10.0) mg/L Total Protein (6.3-8.2) g/dL Albumin (3.5-5.0) g/dL Urine Color Light Yellow Urine Appearance Clear (Clear) Urine pH 7.0 (5.0-8.0) Ur Specific Barry 1.007 (1.001-1.035) Urine Protein Negative (Negative) Urine Glucose (UA) Negative (Negative) Urine Ketones Negative (Negative) Urine Blood Negative (Negative) Urine Nitrite Negative (Negative) Urine Bilirubin Negative (Negative) Urine Urobilinogen <2.0 (<2.0) mg/dL Ur Leukocyte Esterase Negative (Negative) Stool Occult Blood (Negative) 04/18/20 Range/Units 14:55 WBC (3.8-10.6) k/uL RBC (3.80-5.40) m/uL Hgb (11.4-16.0) gm/dL Hct (34.0-46.0) % MCV (80.0-100.0) fL MCH (25.0-35.0) pg MCHC (31.0-37.0) g/dL RDW (11.5-15.5) % Plt Count (150-450) k/uL MPV Neutrophils % % Lymphocytes % % Monocytes % % Eosinophils % % Basophils % % Neutrophils # (1.3-7.7) k/uL Lymphocytes # (1.0-4.8) k/uL Monocytes # (0-1.0) k/uL Eosinophils # (0-0.7) k/uL Basophils # (0-0.2) k/uL Hypochromasia Poikilocytosis Anisocytosis PT (9.0-12.0) sec INR (<1.2) APTT (22.0-30.0) sec D-Dimer (<0.60) mg/L FEU Sodium (137-145) mmol/L Potassium (3.5-5.1) mmol/L Chloride (98-107) mmol/L Carbon Dioxide (22-30) mmol/L Anion Gap mmol/L BUN (7-17) mg/dL Creatinine (0.52-1.04) mg/dL Est GFR (CKD-EPI)AfAm (>60 ml/min/1.73 sqM) Est GFR (CKD-EPI)NonAf (>60 ml/min/1.73 sqM) Glucose (74-99) mg/dL Plasma Lactic Acid Jonah (0.7-2.0) mmol/L Calcium (8.4-10.2) mg/dL Magnesium (1.6-2.3) mg/dL Total Bilirubin (0.2-1.3) mg/dL AST (14-36) U/L ALT (4-34) U/L Alkaline Phosphatase (38-126) U/L Lactate Dehydrogenase (313-618) U/L Troponin I (0.000-0.034) ng/mL C-Reactive Protein (<10.0) mg/L Total Protein (6.3-8.2) g/dL Albumin (3.5-5.0) g/dL Urine Color Urine Appearance (Clear) Urine pH (5.0-8.0) Ur Specific Barry (1.001-1.035) Urine Protein (Negative) Urine Glucose (UA) (Negative) Urine Ketones (Negative) Urine Blood (Negative) Urine Nitrite (Negative) Urine Bilirubin (Negative) Urine Urobilinogen (<2.0) mg/dL Ur Leukocyte Esterase (Negative) Stool Occult Blood Positive H (Negative) Disposition Clinical Impression: Anemia, Pneumonia, Elevated d-dimer, Generalized weakness, GI bleed Disposition: ADMITTED IP TO THIS [facility] Referrals: Ale Eli MD [Primary Care Provider] - 1-2 days Time of Disposition: 15:01
[2020-04-18 14:20] LABS: Anisocytosis Slight; Basophils # (A) 0.1 k/uL (0-0.2); Basophils % (A) 1 %; Eosinophils # (A) 0.1 k/uL (0-0.7); Eosinophils % (A) 2 %; Hypochromasia Marked; Lymphocytes % (A) 14 %; MCH 26.1 pg (25.0-35.0); MCHC 30.1 g/dL (31.0-37.0); MCV 86.6 fL (80.0-100.0); Mean Platelet Volume 7.4; Monocytes # (A) 0.4 k/uL (0-1.0); Monocytes % (A) 6 %; Neutrophils % (A) 75 %; Platelet Count 286 k/uL (150-450); Poikilocytosis Moderate; RBC 2.02 m/uL (3.80-5.40); RDW 16.5 % (11.5-15.5); WBC 6.7 k/uL (3.8-10.6)
[2020-04-18 14:23] LABS: Appearance,Urine Clear (Clear); Bilirubin,Urine Negative (Negative); Blood,Urine Negative (Negative); Color,Urine Light Yellow; Glucose,Urine (UA) Negative (Negative); Ketones,Urine Negative (Negative); Leukocyte Esterase,Urine Negative (Negative); Nitrite,Urine Negative (Negative); Protein,Urine Negative (Negative); Specific Gravity,Urine 1.007 (1.001-1.035); Urobilinogen,Urine <2.0 mg/dL (<2.0)
[2020-04-18 14:24] LABS: HCT 17.5 % (34.0-46.0); HGB 5.3 gm/dL (11.4-16.0)
[2020-04-18 14:25] LABS: ALT 26 U/L (4-34); AST 27 U/L (14-36); African American GFR (CKD) 32 (>60 ml/min/1.73 sqM); Albumin 3.4 g/dL (3.5-5.0); Alkaline Phosphatase 142 U/L (38-126); Anion Gap 6 mmol/L; Blood Urea Nitrogen 45 mg/dL (7-17); C Reactive Protein <5.0 mg/L (<10.0); Calcium 8.9 mg/dL (8.4-10.2); Carbon Dioxide 30 mmol/L (22-30); Chloride 103 mmol/L (98-107); Glucose 108 mg/dL (74-99); LDH 600 U/L (313-618); Non-African American GFR(CKD) 28 (>60 ml/min/1.73 sqM); Potassium 4.7 mmol/L (3.5-5.1); Sodium 139 mmol/L (137-145); Total Bilirubin 0.3 mg/dL (0.2-1.3); Total Protein 5.6 g/dL (6.3-8.2)
--- NOTE | 2020-04-18 14:44 | XR ---
EXAMINATION TYPE: XR chest 1V portable DATE OF EXAM: 04/18/2020 Comparison: 03/27/2020 Clinical History: 75-year-old female cough, shortness of breath, Suspected COVID-19 pneumonia Findings: Heart borderline in size. Persistent consolidation within the right upper lobe. Hyperinflation. Mild patchy density at the right base may be slightly increased. Impression: COPD and persistent right upper lobe consolidation/pneumonia. Minimal patchy infiltrate now seen at t he right base as well.
[2020-04-18 14:46] LABS: INR 0.9 (<1.2); Partial Thromboplastin Time 21.8 sec (22.0-30.0); Prothrombin Time 9.5 sec (9.0-12.0)
[2020-04-18] MEDS ORDERED: SODIUM CHLORIDE 0.9% 1,000 ML IV ONE (15:02)
[2020-04-18] MEDS ORDERED: LEVOFLOXACIN 750MG-D5W PMX 750 MG in DEXTROSE/WATER 1 150ML.BAG IVPB SCH (16:30)
[2020-04-18] MEDS ORDERED: LEVOFLOXACIN 750MG-D5W PMX 750 MG in DEXTROSE/WATER 1 150ML.BAG IVPB ONE (16:30)
--- NOTE | 2020-04-18 16:30 | NM ---
EXAMINATION TYPE: NM pul perfusion DATE OF EXAM: 04/18/2020 COMPARISON: Chest x-ray same day HISTORY: Pneumonia Following administration of 3.6 mCi Tc 99m MAA. Images obtained post injection. FINDINGS: Focal decreased uptake on perfusion imaging of the site of patient's chest x-ray abnormality. IMPRESSION: Low probability for pulmonary embolism.
[2020-04-18] MEDS ORDERED: CHOLESTYRAMINE (WITH SUGAR) 4 GM PACKET PO PRN (18:39)
[2020-04-18] MEDS: busPIRone HCl 10 MG TAB PO SCH (20:02)
[2020-04-18] MEDS: HYDROcodone/APAP 5-325MG 1 EACH TAB PO PRN (20:03)
[2020-04-18] MEDS: PANTOPRAZOLE 40 MG/10 ML VIAL IVP SCH (20:04)
[2020-04-18] MEDS: MIRTAZAPINE 45 MG TABLET PO SCH (20:04)
[2020-04-18] MEDS ORDERED: ALBUTEROL HFA INHALER INHALATION PRN (20:31)
[2020-04-18] MEDS: hydrOXYzine pamoate 25 MG CAP PO SCH (21:29)
[2020-04-18] MEDS: LORATADINE 10 MG TAB PO SCH (21:30)
--- NOTE | 2020-04-18 22:51 | HP ---
HISTORY AND PHYSICAL I am covering for Dr. Desir. DATE OF SERVICE: 04/18/2020 CHIEF COMPLAINT: GI bleed This 75-year-old woman with a past medical history of multiple medical issues, including asthma, DVT, history of GERD, history of memory impairment, history of back surgery, history of bowel resection, history of anxiety and depression, being followed by Dr. Rothman in the outpatient setting, was admitted recently with not feeling well. The patient was unable to keep anything down. The patient was discharged, but the symptoms worsened and the patient came back to [facility] and was admitted for further evaluation and treatment. Hemoglobin was found to be 8. It was around 12 a couple of months ago. D-dimer was elevated at 2.18 and the stool OB was positive. Other tests on the admission show right upper lobe pneumonia on the chest x-ray, and V/Q scan was low probability. COVID-19 test is pending at this time. Otherwise, there is no history of fever or rigors. No history of headache, loss of consciousness, seizures at this time. Patient was started on empiric antibiotics. PAST MEDICAL HISTORY: History of asthma, history of DVT, history of GERD, history of memory impairment, history of back surgery, bowel resection. HOME MEDICATIONS: [place], hydroxyzine, Duragesic patch, Marinol, calcitriol, BuSpar, Wellbutrin XL, vitamin B1, K-Dur, Prilosec, Remeron, Synthroid, Xyzal, Lasix, folic acid, iron, vitamin D2, Cymbalta, vitamin B12, Colace, cholestyramine, calcium with vitamin D. ALLERGIES: PROLIA, DUST, MOLD. FAMILY HISTORY: History of cancer, CAD. SOCIAL HISTORY: No history of smoking. No history of alcohol intake. REVIEW OF SYSTEMS: ENT: No diminished hearing. No diminished vision. CARDIOVASCULAR SYSTEM: No angina, palpitations. RESPIRATORY SYSTEM: No cough, hemoptysis. GI: As mentioned earlier. : No dysuria or retention. NERVOUS SYSTEM: No numbness, weakness. ALLERGY/IMMUNOLOGY: No asthma, hayfever. MUSCULOSKELETAL: As mentioned earlier. HEMATOLOGY/ONCOLOGY: As mentioned earlier. ENDOCRINE: Diabetes, hypothyroidism present. CONSTITUTIONAL: As mentioned earlier. DERMATOLOGY: Negative. RHEUMATOLOGY: Negative. PSYCHIATRY: As mentioned earlier. PHYSICAL EXAMINATION: Patient alert and oriented x3. Pulse 94, blood pressure 134/70, respirations 16, temperature 97.9, pulse ox 99% on room air. HEENT: Conjunctivae normal. Oral mucosa dry. NECK: No jugular venous distention. No carotid bruit. No lymph node enlargement. CARDIOVASCULAR SYSTEM: S1, S2 muffled. No S3. No S4. RESPIRATORY SYSTEM: Breath sounds diminished at the bases. No rhonchi. No crackles. ABDOMEN: Soft, non-tender. No mass palpable. LEGS: No edema. No swelling. NERVOUS SYSTEM: Higher functions as mentioned earlier. Moves all 4 limbs. No focal motor or sensory deficit. LYMPHATICS: No lymph node palpable in neck, axillae or groin. SKIN: No ulcer, rash, bleeding. JOINTS: No active deforming arthropathy. LABS: WBC 6.7, hemoglobin 5.1. D-dimer is 2.18. Creatinine is 1.78. The baseline creatinine was 1.98. ASSESSMENT: 1. Acute blood loss anemia with possibly acute gastrointestinal blood loss anemia. 2. Right upper lobe pneumonia, possibly community-acquired. 3. Rule out COVID-19. 4. Elevated D-dimer without any evidence of pulmonary embolism. 5. Elevated creatinine with chronic kidney disease, stage 3, with acute on chronic renal failure. 6. Elevated procalcitonin. 7. Stool occult blood is positive. 8. History of asthma. 9. History of deep venous thrombosis. 10.History of gastroesophageal reflux disease. 11.Memory impairment. 12.History of degenerative joint disease. 13.History of stomach ulcers. 14.History of pancreatitis. 15.History of transient ischemic attack. 16.History of spinal stenosis. 17.History of falls. 18.History of gait dysfunction. 19.Severe protein-calorie malnutrition with a body mass index of 15.5. 20.Anxiety, depression, panic disorder. 21.History of narcotic abuse. RECOMMENDATIONS AND DISCUSSION: In this 75-year-old woman who presented with multiple complex medical issues, we will monitor the patient closely, continue the current medications, continue symptomatic treatment. Will monitor H and H q.6 and obtain gastroenterology consultation for possible EGD and colonoscopy. Transfusion has been arranged. Serially monitor hemoglobin. Patient also has pneumonia. Will treat the patient with IV antibiotics. Dr. Sanchez will be consulted for the pneumonia. COVID-19 test is pending at this time. Repeat labs will be ordered. Medication reconciliation has been done. Prognosis guarded because of multiple complex medical issues. Further recommendations to follow. A copy of this dictation is being forwarded to Dr. Eli, who is the primary physician. MMNATEL / IJN: [id number] / MTDD
[2020-04-18] MEDS: HYDROmorphone 0.5 MG/0.5 ML SYRINGE IVP PRN (23:28)
[2020-04-18] MEDS: PIPERACILLIN-TAZOBACTAM 3.375 GM in SODIUM CHLORIDE 0.9% 100 ML IVPB SCH (23:28)
[2020-04-18] MEDS: SODIUM CHLORIDE 0.9% 1,000 ML IV SCH (23:30)
[2020-04-19] MEDS ORDERED: LORazepam 2 MG/ML INJ IV STA (01:20)
[2020-04-19] MEDS: HYDROcodone/APAP 5-325MG 1 EACH TAB PO PRN (03:19)
[2020-04-19] MEDS: PIPERACILLIN-TAZOBACTAM 3.375 GM in SODIUM CHLORIDE 0.9% 100 ML IVPB SCH ×3 (04:04→23:36)
[2020-04-19] MEDS: HYDROmorphone 0.5 MG/0.5 ML SYRINGE IVP PRN ×4 (05:51→22:17)
[2020-04-19] MEDS: LEVOTHYROXINE 88 MCG TAB PO SCH (05:51)
[2020-04-19 06:14] LABS: Basophils # (A) 0.1 k/uL (0-0.2); Basophils % (A) 1 %; Eosinophils # (A) 0.4 k/uL (0-0.7); Eosinophils % (A) 4 %; HCT 28.1 % (34.0-46.0); Hypochromasia Marked; Lymphocytes # (A) 1.8 k/uL (1.0-4.8); Lymphocytes % (A) 21 %; MCH 27.5 pg (25.0-35.0); MCHC 31.9 g/dL (31.0-37.0); MCV 86.3 fL (80.0-100.0); Mean Platelet Volume 7.2; Monocytes # (A) 0.5 k/uL (0-1.0); Monocytes % (A) 6 %; Neutrophils # (A) 5.7 k/uL (1.3-7.7); Neutrophils % (A) 66 %; Platelet Count 250 k/uL (150-450); Poikilocytosis Marked; RBC 3.26 m/uL (3.80-5.40); RDW 15.9 % (11.5-15.5); WBC 8.7 k/uL (3.8-10.6)
[2020-04-19 06:22] LABS: Potassium 4.6 mmol/L (3.5-5.1)
[2020-04-19] MEDS ORDERED: CALCIUM PO SCH (09:00)
[2020-04-19] MEDS ORDERED: MAGNESIUM PO SCH (09:00)
[2020-04-19] MEDS ORDERED: CYANOCOBALAMIN 1,000 MCG/ML 1 ML VIAL SQ SCH (09:00)
[2020-04-19] MEDS: PANTOPRAZOLE 40 MG/10 ML VIAL IVP SCH ×2 (09:04→20:06)
[2020-04-19 10:08] LABS: Ferritin 13.2 ng/mL (10.0-291.0)
[2020-04-19] MEDS ORDERED: LIDOCAINE 1% INJ 10MG/ML (20 ML MDV) ONE (10:55)
[2020-04-19] MEDS ORDERED: PROPOFOL 10 MG/ML 20 ML VIAL IV ONE (10:55)
[2020-04-19] MEDS ORDERED: fentaNYL (PF) 50 MCG/ML 2 ML AMP ONE (10:55)
[2020-04-19] MEDS ORDERED: MIDAZOLAM 2 MG/2 ML VIAL ONE (10:55)
[2020-04-19] MEDS ORDERED: IV FLUID CONTINUATION 400 ML IV ONE (10:55)
--- NOTE | 2020-04-19 11:28 | P.CONS ---
History of Present Illness - Reason for Consult Consult date: 04/18/20 Anemia Requesting physician: Aracely Macedo - Chief Complaint Weakness - History of Present Illness 75-year-old female with a medical history of osteoarthritis, hypothyroidism, fibromyalgia, prior DVT, peptic ulcer disease status post gastrectomy with reconstruction and 1995 at [place] who presented for weakness. She was recently discharged from Hospital and states that since that time she has been having difficulty taking her medications and felt uncomfortable as she lives at home. He denies any abdominal pain, nausea or vomiting. He denies any episodes hematemesis or coffee-ground emesis. She has reports that bowel movements have been dark in color. She has a significant history of peptic ulcer disease with reconstruction after gastrectomy at [facility]. She reports she has followed up with endoscopy in the past and believes her last EGD and colonoscopy were approximately [address] Angel. Hemoglobin was 5.3 on presentation down from 8 on last admission with WBC 6.7, platelet count 286,000, total bilirubin 0.8, alk phos is 142, AST 27 and ALT 26. Review of Systems REVIEW OF SYSTEMS: CONSTITUTIONAL: Denies any fevers, chills, weight change or fatigue. CARDIOVASCULAR: Denies any chest pain, palpitations high or low blood pressures RESPIRATORY: Denies any shortness of breath, hemoptysis or cough. GENITOURINARY: No dysuria or hematuria. MUSCULOSKELETAL: No weakness reported. SKIN: Denies any new rashes or lesions, jaundice or pallor. PSYCHIATRIC: Denies any depression or anxiety. NEUROLOGY: Denies headache, denies any new focal deficits. EARS/NOSE/THROAT: No recent hearing change, congestion, nasal discharge or sore throat. EYES: No pain in eyes, discharge or change in vision. GASTROINTESTINAL: As per HPI. Past Medical History Past Medical History: Asthma, Deep Vein Thrombosis (DVT), GERD/Reflux, Memory I mpairment Additional Past Medical History / Comment(s): OA IN NECK,BACK AND BILATERAL ARMS.stomach ulcers, edema,low calcium; migraine headaches, pancreatitis,constipation,tia,spinal stenosis(had sx ). Fell in May 2019- FX HIP-LAID ON FLOOR FOR 3 DAYS hit back of head-STATES HAS SHORT TERM MEMORY PROBLEMS History of Any Multi-Drug Resistant Organisms: None Reported Past Surgical History: Back Surgery, Bowel Resection Additional Past Surgical History / Comment(s): LOWER BACK SURGERY lamenec vanessa/discetomy then had a revison of that sx. 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, nasal sx d/t broken nose, colonoscopy/egd, PAIN CLINIC PROCEDURES Past Anesthesia/Blood Transfusion Reactions: No Reported Reaction Additional Past Anesthesia/Blood Transfusion Reaction / Comm: PT RECIEVED BLOOD TRANSFUSIONS AFTER STOMACH SURGERY Past Psychological History: Anxiety, Depression, Panic Disorder Additional Psychological History / Comment(s): PT LIVES AT HOME ALONE. PT IS ABLE TO DRIVE A CAR. 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 Smoking Status: Never smoker Past Alcohol Use History: None Reported Past Drug Use History: None Reported - Past Family History Father Family Medical History: Cancer, Coronary Artery Disease (CAD) Additional Family Medical History / Comment(s): FATHER HAD BLADDER AND KIDNEY CANCER. FATHER HAD TB WHEN HE WAS A CHILD .FATHER AT AGE 87. Mother Family Medical History: Cancer Additional Family Medical History / Comment(s): MOTHER AT AGE 58 OF OVARIAN CANCER. Medications and Allergies Home Medications Medication Instructions Recorded Confirmed Type DULoxetine HCL [Cymbalta] 60 mg PO DAILY 09/17/13 04/18/20 History fentaNYL 100MCG/HR PATCH 1 patch TRANSDERM Q72H 04/10/15 04/18/20 History [Duragesic 100MCG/HR] Cyanocobalamin [Vitamin B-12 1,000 mcg SQ Q30D 11/06/15 04/18/20 History Injection] Ferrous Sulfate [Iron (65 MG 650 mg PO DAILY 11/06/15 04/18/20 History Elemental)] buPROPion HCL [Wellbutrin XL] 300 mg PO DAILY 11/06/15 04/18/20 History Levocetirizine Dihydrochloride 5 mg PO HS 05/31/17 04/18/20 History [Xyzal] Calcium/Magnesium 250mg/300mg 1 tab PO DAILY 06/07/19 04/18/20 History Levothyroxine Sodium [Synthroid] 88 mcg PO DAILY 06/07/19 04/18/20 History calcitrioL [Calcitriol] 1 mcg PO MOWEFR 06/07/19 04/18/20 History Albuterol Inhaler [Ventolin Hfa 1 puff INHALATION RT-Q6H PRN 10/05/19 04/18/20 History Inhaler] Mirtazapine [Remeron] 45 mg PO HS 04/14/20 04/18/20 History busPIRone HCL [Buspar] 30 mg PO BID 04/14/20 04/18/20 History dronabinoL [Marinol] 5 mg PO BID #30 cap 04/14/20 04/18/20 Rx Cholestyramine (with Sugar) 4 gm PO BID 04/18/20 04/18/20 History [Cholestyramine Powder] Ergocalciferol [Vitamin D2] 50,000 unit PO Q28D 04/18/20 04/18/20 History Folic Acid 1 mg PO DAILY 04/18/20 04/18/20 History Furosemide [Lasix] 20 mg PO DAILY 04/18/20 04/18/20 History HYDROcodone/APAP 5-325MG [[place] 1 tab PO Q6H PRN 04/18/20 04/18/20 History 5-325] Omeprazole [PriLOSEC] 20 mg PO DAILY 04/18/20 04/18/20 History Potassium Chloride ER [K-Dur 10] 30 meq PO DAILY 04/18/20 04/18/20 History Thiamine [Vitamin B-1] 100 mg PO DAILY 04/18/20 04/18/20 History hydrOXYzine pamoate [hydrOXYzine 25 mg PO TID 04/18/20 04/18/20 History PAMOATE] Allergies Allergy/AdvReac Type Severity Reaction Status Date / Time denosumab [From Prolia] Allergy SEVERE Verified 04/18/20 14:52 CALCIUM LOSS DUST Allergy Itching Uncoded 04/18/20 14:52 MOLDS Allergy Itching Uncoded 04/18/20 14:52 Physical Exam Vitals: Vital Signs Temp Pulse Resp BP Pulse Ox 04/18/20 19:00 97.9 F 94 16 134/70 04/18/20 17:50 98.6 F 94 20 124/61 99 04/18/20 17:21 98.6 F 98 18 123/65 04/18/20 16:51 98.7 F 96 16 125/63 99 04/18/20 16:41 98.5 F 97 16 126/62 99 04/18/20 16:35 101 H 20 123/72 99 04/18/20 15:30 99.0 F 102 H 20 120/60 99 04/18/20 15:00 102 H 20 111/53 98 04/18/20 14:00 106 H 20 101/61 100 04/18/20 13:27 100.5 F H 04/18/20 13:11 99.5 F 115 H 22 135/75 96 Intake and Output 04/18/20 04/18/20 04/18/20 06:59 14:59 22:59 Intake Total 281 Balance 281 Intake: Blood Product 281 Rc Pheresis As-3 Unit 281 [id number] Other: Weight 38.102 kg 38.102 kg On physical examination, patient appears comfortable in no apparent distress. HEAD: Normocephalic, atraumatic. EYES: No scleral icterus. No conjunctival injection. MOUTH: No lesions, tongue midline. NECK: Trachea midline, no gross abnormalities. CHEST: Decreased air entry in all lung calixto. HEART: Regular rate and rhythm. ABDOMEN: Soft, thin and nontender. Bowel sounds are positive. No organomegaly. No guarding or rigidity. EXTREMITIES: No pedal edema. SKIN: No rashes, no jaundice. NEUROLOGIC: Alert and oriented x3. No focal deficits. Results CBC & Chem 7: 04/19/20 05:47 04/19/20 05:47 Labs: Abnormal Lab Results - Last 24 Hours (Table) 04/18/20 04/18/20 04/18/20 Range/Units 13:40 13:40 13:40 RBC 2.02 L (3.80-5.40) m/uL Hgb 5.3 L* D (11.4-16.0) gm/dL Hct 17.5 L* (34.0-46.0) % MCHC 30.1 L (31.0-37.0) g/dL RDW 16.5 H (11.5-15.5) % APTT 21.8 L (22.0-30.0) sec D-Dimer 2.18 H (<0.60) mg/L FEU BUN 45 H (7-17) mg/dL Creatinine 1.78 H (0.52-1.04) mg/dL Glucose 108 H (74-99) mg/dL Alkaline Phosphatase 142 H (38-126) U/L Total Protein 5.6 L (6.3-8.2) g/dL Albumin 3.4 L (3.5-5.0) g/dL Procalcitonin (0.02-0.09) ng/mL Stool Occult Blood (Negative) Crossmatch 04/18/20 04/18/20 04/18/20 Range/Units 13:40 14:55 14:55 RBC (3.80-5.40) m/uL Hgb (11.4-16.0) gm/dL Hct (34.0-46.0) % MCHC (31.0-37.0) g/dL RDW (11.5-15.5) % APTT (22.0-30.0) sec D-Dimer (<0.60) mg/L FEU BUN (7-17) mg/dL Creatinine (0.52-1.04) mg/dL Glucose (74-99) mg/dL Alkaline Phosphatase (38-126) U/L Total Protein (6.3-8.2) g/dL Albumin (3.5-5.0) g/dL Procalcitonin 0.15 H (0.02-0.09) ng/mL Stool Occult Blood Positive H (Negative) Crossmatch See Detail Chest x-ray: report reviewed Assessment and Plan (1) Melena Narrative/Plan: 75-year-old female with multiple medical comorbidities including prior gastrectomy with reconstruction at [facility] in 1994 secondary to peptic ulcer disease with recent admissions to the hospital for treatment of hypokalemia and chronic kidney disease who presented back for weakness. Patient was found to have a fall in her hemoglobin down to 5.3 with normocytic indices from 8 on last admission. She denies any overt signs of bleeding but does feel that bowel movements have been darker in color. Stool did test positive for blood. Unclear etiology of anemia may be related to GI bleed with plan for EGD to rule out anastomotic site ulcer or other etiology of bleeding. Current Visit: Yes Status: Acute Code(s): K92.1 - MELENA SNOMED Code(s): 0661512 (2) Normocytic anemia Current Visit: Yes Status: Acute Code(s): D64.9 - ANEMIA, UNSPECIFIED SNOMED Code(s): 769624746 Plan: Supportive care Okay for diet Nothing by mouth after midnight Continue to monitor hemoglobin and hematocrit and transfuse as needed Laboratory evaluation of anemia ordered Plan for EGD tomorrow for further evaluation Thank you for allowing us to participate in the care of the patient
--- NOTE | 2020-04-19 11:32 | P.PCN ---
Date of Procedure: 04/19/20 Description of Procedure: BRIEF HISTORY: 75-year-old female with a medical history of osteoarthritis, hypothyroidism, fibromyalgia, prior DVT, peptic ulcer disease status post gastrectomy with reconstruction and 1995 at [place] who presented for weakness. She was recently discharged from Hospital and states that since that time she has been having difficulty taking her medications and felt uncomfortable as she lives at home. He denies any abdominal pain, nausea or vomiting. He denies any episodes hematemesis or coffee-ground emesis. She has reports that bowel movements have been dark in color. She has a significant history of peptic ulcer disease with reconstruction after gastrectomy at [facility]. She reports she has followed up with endoscopy in the past and believes her last EGD and colonoscopy were approximately [address] Angel. Hemoglobin was 5.3 on presentation down from 8 on last admission. PROCEDURE PERFORMED: Esophagogastroduodenoscopy. PREOPERATIVE DIAGNOSIS: Melena, anemia. ESTIMATED BLOOD LOSS: Minimal. IV sedation per anesthesia. PROCEDURE: After informed consent was obtained, the patient was brought into the endoscopy unit. IV sedation was administered by Anesthesia under continuous monitoring. Initially the Olympus GIF-190 video endoscope was inserted into the mouth. Esophagus intubated without any difficulty. It was gradually advanced into the small bowel. The anastomotic site appeared intact from the patient's prior gastrectomy. Both limbs of the small bowel were examined with no evidence of old blood, active bleeding or pathology to explain anemia. Was then withdrawn back into the esophagus and the GE junction was located at 37 cm from the incisors. Esophagus appeared normal. There were no ulcerations, erosions or other pathology. The patient tolerated the procedure well. IMPRESSION: 1. No active bleeding, old blood or pathology to explain anemia . 2. Gastrectomy. RECOMMENDATIONS: The findings of this examination were discussed with the patient. Okay to resume diet. Okay to resume medications. Anemia laboratory evaluation pending. Continue to monitor hemoglobin and hematocrit and transfuse as needed.
[2020-04-19] MEDS: THIAMINE 100 MG TAB PO SCH (11:35)
[2020-04-19] MEDS: FOLIC ACID 1 MG TAB PO SCH (11:35)
[2020-04-19] MEDS: busPIRone HCl 10 MG TAB PO SCH ×2 (11:35→20:06)
[2020-04-19] MEDS: hydrOXYzine pamoate 25 MG CAP PO SCH ×3 (11:35→21:30)
[2020-04-19] MEDS: DULoxetine HCL 60 MG CAPSULE.DR PO SCH (11:36)
[2020-04-19] MEDS: FERROUS SULFATE 325 MG TAB PO SCH (11:36)
[2020-04-19 12:34] LABS: Reticulocyte % 2.1 % (0.5-2.0)
[2020-04-19] MEDS ORDERED: PSEUDOEPHEDRINE 30 MG TAB PO PRN (12:34)
--- NOTE | 2020-04-19 12:58 | CONS ---
CONSULTATION PULMONARY/CRITICAL CARE CONSULTATION: 04/19/2020 This is a 75-year-old female who presented to the emergency department, brought in by EMS, because she just was not feeling well. She apparently cannot take care of herself at home. She was recently discharged from the hospital on 04/14 with a low potassium and some kidney issues. Since she was home for a couple days, probably 3-1/2 or 4, she apparently became very weak. She felt very nervous and could not stop shaking. She had a bit of a cough. She also had some dysuria. She also had some chest congestion. The patient was re-evaluated and found to have a possible GI bleed and also right upper lobe pneumonia. Currently, she is on room air. She does state that she is short of breath. She is coughing a bit. Not producing any phlegm. She looks reasonably stable to me. Her primary care physician is Dr. Eli. MEDICATIONS: Reviewed. She is on Cymbalta, Duragesic patch, vitamin B12 injections, iron, Wellbutrin, Xyzal, calcium/magnesium tablet, Synthroid, calcitriol, albuterol inhaler, Remeron, BuSpar, Questran powder, vitamin D2, folic acid, Lasix, [place], Prilosec, potassium chloride, vitamin B1, hydroxyzine, and dronabinol. ALLERGIES: Include PROLIA, DUST AND MOLDS. MEDICAL HISTORY: Positive for chronic bronchial asthma, deep venous thrombosis, GERD, dementia, severe osteoarthritis, stomach ulcers, hypocalcemia, migraine cephalgia, pancreatitis, constipation, TIA, spinal stenosis, among other medical problems. SURGICAL HISTORY: Includes back surgery, bowel resection, gastric surgery, nasal surgery, colonoscopy, EGD, and pain clinic procedures. SOCIAL HISTORY: Negative for tobacco use. She denies any alcohol use or illicit drug use. FAMILY HISTORY: Positive for mother who at age 58 from ovarian carcinoma and a father with a history of CAD and bladder and kidney cancer. REVIEW OF SYSTEMS: CONSTITUTIONAL: Weakness. NEUROLOGIC: Negative. HEENT: Negative. CARDIOVASCULAR: Negative. PULMONARY: Cough, minimal phlegm production. GI: Negative. : Negative. RHEUMATOLOGIC: Negative. IMMUNOLOGIC: Negative. ENDOCRINOLOGIC: Negative. DERMATOLOGIC: Negative. PHYSICAL EXAMINATION: Vital signs are reviewed. Temperature 93, heart rate 95, respiratory rate 18, blood pressure 125/71, room air saturation 97%. T-max was 100.5 on April 18. She appears in no acute distress. Not wearing any supplemental oxygen. No audible wheezing, use of accessory muscles or conversational dyspnea noted. HEENT: Examination is grossly unremarkable. NECK: Supple. CARDIOVASCULAR examination reveals regular rhythm AND rate. Heart rate about 90 beats per minute. S1, S2 normal. LUNGS: Reveal mostly clear breath sounds. A few scattered rhonchi. No wheezes or crackles. ABDOMEN: Soft. EXTREMITIES: Intact. No edema. SKIN: Without rash. NEUROLOGIC: Examination is nonfocal. LABS: Reviewed. White count 8.7, hemoglobin 9.0, hematocrit 28.1, platelet count 350,000. On admission, her hemoglobin was 5.3 and her hematocrit was 17.5. PT 9.5, INR 0.9, PTT 21.8. D-dimer 2.18. Sodium 136, potassium 4.6, chloride 104, CO2 30, anion gap is 2. BUN and creatinine were 34 and 1.61 compared to 45 and 1.78 yesterday. Alkaline phosphatase 142, LDH 600. Troponin was negative. Procalcitonin was 0.5. Urine was negative. Stools for occult blood were positive. COVID testing was negative. Microbiology is currently negative. Lung scan was read as low probability for pulmonary embolism. Chest x-ray showed some infiltrate in the right upper lobe. Medications are reviewed. The patient is on albuterol inhaler, Wellbutrin, BuSpar, Rocaltrol, Questran, vitamin B12, Marinol, Cymbalta, vitamin D2, fentanyl patch, iron, folic acid, [place], Dilaudid, Vistaril, Levaquin, levothyroxine, loratadine, Remeron, Protonix, Zosyn, and thiamine. ASSESSMENT: 1. Gastrointestinal bleed with anemia, status post 2 units of PRBCs. 2. Pneumonia, right upper lobe, with minimal to no respiratory complaints at this time. 3. COVID-19 testing negative. 4. Profound weakness and inability to take care of herself at home. 5. History of asthma. 6. Lifelong nonsmoker. 7. DVT. 8. Gastroesophageal reflux disease. 9. Dementia. 10.Severe arthritis. 11.History of gastric ulcer. 12.Migraine cephalgia. 13.Pancreatitis. 14.Chronic constipation. 15.Transient ischemic attack. 16.History of spinal stenosis. 17.Multiple other medical problems and comorbidities. PLAN: The patient is currently on Levaquin and Zosyn. There is more than adequate antibiotic coverage. The patient is not having any respiratory issues at this time. No need to add any breathing treatments at this time. She did come in with apparent GI bleed. She did receive some blood. That is currently being evaluated. She may undergo EGD and colonoscopy. We will continue to follow. Prognosis is guarded. COVID-19 testing with negative. MMODL / IJN: [id number] /
[2020-04-19] MEDS: buPROPion XL 300 MG TAB.ER.24H PO SCH (13:17)
[2020-04-19] MEDS: SODIUM CHLORIDE 0.9% 1,000 ML IV SCH ×2 (13:17→21:31)
[2020-04-19] MEDS ORDERED: TRIMETHOBENZAMIDE 100 MG/ML 2 ML VIAL IM PRN (13:23)
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
[2020-04-19] MEDS: LORATADINE 10 MG TAB PO SCH (20:06)
[2020-04-19] MEDS: MIRTAZAPINE 45 MG TABLET PO SCH (21:30)
[2020-04-19 23:28] LABS: % Iron Saturation 10.63 (12.00-45.00); Iron 32 ug/dL (50-170); Total Iron Binding Capacity 301 ug/dL (228-460)
[2020-04-20 00:40] LABS: Ferritin 12.8 ng/mL (10.0-291.0); Folate, Serum >24.0 ng/mL
[2020-04-20] MEDS: HYDROmorphone 0.5 MG/0.5 ML SYRINGE IVP PRN ×4 (03:52→22:09)
[2020-04-20] MEDS: LEVOTHYROXINE 88 MCG TAB PO SCH (06:02)
[2020-04-20 07:57] LABS: Basophils # (A) 0.1 k/uL (0-0.2); Basophils % (A) 1 %; Eosinophils # (A) 0.3 k/uL (0-0.7); Eosinophils % (A) 3 %; Hypochromasia Marked; Lymphocytes # (A) 1.5 k/uL (1.0-4.8); Lymphocytes % (A) 14 %; MCHC 30.8 g/dL (31.0-37.0); MCV 87.5 fL (80.0-100.0); Mean Platelet Volume 7.6; Monocytes # (A) 0.5 k/uL (0-1.0); Monocytes % (A) 5 %; Neutrophils # (A) 7.5 k/uL (1.3-7.7); Neutrophils % (A) 75 %; Platelet Count 236 k/uL (150-450); Poikilocytosis Marked; RBC 3.32 m/uL (3.80-5.40); WBC 10.1 k/uL (3.8-10.6)
[2020-04-20 08:20] LABS: Calcium 8.5 mg/dL (8.4-10.2); Potassium 4.2 mmol/L (3.5-5.1)
[2020-04-20] MEDS ORDERED: ERGOCALCIFEROL 50,000 UNIT CAP PO SCH (09:00)
[2020-04-20] MEDS ORDERED: LEVOFLOXACIN 500MG-D5W PMX 500 MG in DEXTROSE/WATER 1 100ML.BAG IVPB SCH (09:00)
[2020-04-20] MEDS: FOLIC ACID 1 MG TAB PO SCH (09:11)
[2020-04-20] MEDS: DULoxetine HCL 60 MG CAPSULE.DR PO SCH (09:11)
[2020-04-20] MEDS: THIAMINE 100 MG TAB PO SCH (09:11)
[2020-04-20] MEDS: FERROUS SULFATE 325 MG TAB PO SCH (09:11)
[2020-04-20] MEDS: hydrOXYzine pamoate 25 MG CAP PO SCH ×3 (09:11→22:08)
[2020-04-20] MEDS: buPROPion XL 300 MG TAB.ER.24H PO SCH (09:11)
[2020-04-20] MEDS: busPIRone HCl 10 MG TAB PO SCH ×2 (09:12→22:08)
[2020-04-20] MEDS: PANTOPRAZOLE 40 MG/10 ML VIAL IVP SCH ×2 (09:14→22:07)
[2020-04-20] MEDS: PIPERACILLIN-TAZOBACTAM 3.375 GM in SODIUM CHLORIDE 0.9% 100 ML IVPB SCH (11:37)
--- NOTE | 2020-04-20 12:26 | PN ---
PROGRESS NOTE PULMONARY/CRITICAL CARE PROGRESS NOTE: DATE OF SERVICE: 04/20/2020 This is a 75-year-old female that we saw yesterday in consultation. She was brought in by EMS because she just was not "feeling well". She apparently could not take care of herself at home. She was profoundly weak. She was discharged from the hospital recently on April 14 with hypokalemia. Anyway, for the last 3 or 4 days she had not been feeling well. She was apparently nervous and could not stop shaking according to the ER [place]. She had a bit of a cough. She also had some dysuria. She was just feeling weak and fatigued. She was found to have a possible GI bleed and possible right upper lobe pneumonia. She did receive 2 units of PRBCs. She had an EGD yesterday by Dr. Turner which revealed no pathology whatsoever. Her primary care physician is Dr. Eli. Currently, from the pulmonary standpoint, she is doing very well. She denies any pulmonary issues including shortness of breath, cough, wheezing, chest congestion or phlegm production. Her room-air saturations 98%. PHYSICAL EXAMINATION: Current temperature 98.1, heart rate 94, respiratory rate 17, blood pressure 129/67, mean 87 and room-air saturation 97%. Appears in no acute distress. HEENT: Examination is grossly unremarkable. NECK: Supple. Full range of motion. No adenopathy. Neck veins are flat. CARDIOVASCULAR: Examination reveals regular rhythm rand ate. Heart rate high 80s, low 90s. S1, S2 normal. LUNGS: Reveal mostly clear breath sounds. No wheezes, rhonchi, or crackles. ABDOMEN: Soft. Bowel sounds are heard. EXTREMITIES are intact. No cyanosis, clubbing, or edema. SKIN: Without rash. NEUROLOGIC: Examination is nonfocal. LABS: Reviewed. White count 10.1, hemoglobin 9, hematocrit 29.0, platelet count 336,000. Sodium, potassium, chloride and CO2 all normal. Anion gap normal. BUN and creatinine were 26 and 1.6. Procalcitonin level was 0.15. Influenza studies were negative. Microbiology is currently negative. No recent chest x-ray. MEDICATIONS: Reviewed. The patient is on albuterol, Wellbutrin, BuSpar, Rocaltrol, Questran, B12, Marinol, Cymbalta, vitamin D2, fentanyl patch, iron, folic acid, [place], Dilaudid, Vistaril, Levaquin IV, levothyroxine, loratadine, Ativan, Remeron, Protonix, Zosyn, Sudafed, saline IV, thiamine and Tigan. ASSESSMENT: 1. Acute gastrointestinal bleed, status post 2 units of PRBCs. EGD was nondiagnostic and no pathology was noted on endoscopy. 2. Mild pneumonia right upper lobe, with minimal to no respiratory complaints at this time. 3. COVID-19 testing negative. 4. Profound weakness and inability to take care of herself at home, likely related to anemia. 5. History of asthma. 6. Lifelong nonsmoker. 7. Deep venous thrombosis. 8. Gastroesophageal reflux disease. 9. Dementia. 10.Severe arthritis. 11.History of gastric ulcer. 12.Migraine cephalgia. 13.Pancreatitis. 14.Chronic constipation. 15.Transient ischemic attack. 16.History of spinal stenosis. 17.Multiple other medical problems and comorbidities. PLAN: We will deescalate the antibiotics. We will switch her to oral Levaquin. Will DC the Zosyn. Additional recommendations and suggestions are forthcoming. EGD was unremarkable. Discharge planning underway. No additional recommendations are made. Prognosis is guarded. MMODL / IJN: [id number] /
[2020-04-20] MEDS: HYDROcodone/APAP 5-325MG 1 EACH TAB PO PRN ×2 (13:24→20:59)
[2020-04-20] MEDS: SODIUM CHLORIDE 0.9% 1,000 ML IV SCH (15:08)
[2020-04-20] MEDS: SODIUM FERRIC GLUCONAT-SUCROSE 125 MG in SODIUM CHLORIDE 0.9% 100 ML IVPB SCH (15:44)
--- NOTE | 2020-04-20 16:46 | XR ---
EXAMINATION TYPE: XR chest 1V portable DATE OF EXAM: 04/20/2020 COMPARISON: 04/18/2020 INDICATION: TECHNIQUE: Single frontal view of the chest is obtained. FINDINGS: The heart size is normal. The pulmonary vasculature is normal. There is a right upper lobe consolidation. Correlate for pneumonia. IMPRESSION: 1. Slight improvement of a right upper lobe pneumonia.
--- NOTE | 2020-04-20 17:57 | PN ---
PROGRESS NOTE DATE OF SERVICE: 04/20/2020 INTERVAL HISTORY: This is a 75-year-old woman who was admitted with multiple medical problems including acute blood loss anemia. Dr. Turner performed an EGD that showed only features of gastrectomy. The patient received some transfusion for hemoglobin of 5.3. Hemoglobin is currently at 9. The patient also has multiple social issues also. Creatinine is still elevated at 1.6, indicating acute on chronic renal failure. Procalcitonin is elevated also. COVID-19 is negative. Influenza is also negative. Dr. Sanchez is also following the patient closely. Apparent pneumonia also noted. PAST MEDICAL HISTORY: Reviewed. REVIEW OF SYSTEMS: CARDIOVASCULAR: No angina or palpitations. RESPIRATORY: As mentioned earlier. GI: As mentioned earlier. : No dysuria. NERVOUS SYSTEM: No numbness or weakness. CURRENT MEDICATIONS: Reviewed and include [place], Ventolin, Wellbutrin, BuSpar, Rocaltrol, Questran, vitamin B12, Cymbalta, fentanyl patch, iron sulfate, folic acid, hydroxyzine, Levaquin, Synthroid, Remeron, Sudafed, vitamin B and Tigan. PHYSICAL EXAM: GENERAL: Patient is alert and oriented times three. VITAL SIGNS: Pulse 76, blood pressure 124/70, respirations 16, temperature 98, pulse ox 94% on room air HEENT: Conjunctivae normal. Oral mucosa moist. NECK: No jugular venous distention. RESPIRATORY: Breath sounds diminished at the bases. No rhonchi, no crackles. HEART: S1 and S2, muffled. ABDOMEN: Soft, no tenderness. No masses palpable. EXTREMITIES: No edema, no swelling. NERVOUS: No focal deficits. LAB: WBC, 10.2, hemoglobin 9. Other labs reviewed. Cultures are negative so far. IMAGIN. Chest x-ray was reviewed personally by me. ASSESSMENT: 1. Acute blood loss anemia with acute GI bleed status post 2 units of transfusion. 2. Right upper lobe pneumonia possibly community-acquired, possibly aspiration. 3. COVID-19 ruled out. 4. EGD showing gastrectomy, no other pathology. 5. Elevated D-dimer without any evidence of pulmonary embolism. 6. Elevated creatinine with acute on chronic kidney disease, stage 3 baseline. 7. Elevated procalcitonin on admission. 8. Stool OB positive. 9. History of asthma. 10.History of deep vein thrombosis. 11.History of gastrectomy. 12.Social issues. 13.History of gastroesophageal reflux disease. 14.History of memory impairment. 15.History of degenerative joint disease. 16.Gait dysfunction. 17.History of stomach ulcer. 18.History of pancreatitis. 19.History of transient ischemic attack. 20.History of spinal stenosis. 21.History of fall. 22.Severe protein calorie malnutrition with body mass index of 15.5. 23.Anxiety, depression, panic disorder. 24.History of narcotic abuse. RECOMMENDATIONS AND DISCUSSION: In this 75-year-old woman who presented with multiple complex medical issues, we will continue the current medications, continue with antibiotics. Continue with proton pump inhibitors. Closely follow with Gastroenterology. I would also recommend to follow closely with PT OT evaluation and social security specialist. Also the patient might require ECF rehab. Also recommend a chest x-ray, portable chest x-ray to rule out the possibility of any worsening of the pneumonia. Otherwise, prognosis guarded and closely follow with Dr. Sanchez and Dr. Turner. Further recommendations to follow. MMODL / IJN: [id number] /
--- NOTE | 2020-04-20 20:58 | P.PN ---
Subjective Progress Note Date: 04/20/20 Principal diagnosis: normocytic anemia, melena patient is seen lying in bed denying any signs or symptoms of GI bleeding. Tolerating diet. Objective - Vital Signs Vital signs: Vital Signs Temp 98.0 F 04/20/20 08:00 Pulse 76 04/20/20 08:00 Resp 17 04/20/20 08:00 BP 124/76 04/20/20 08:00 Pulse Ox 95 04/20/20 08:00 Intake & Output 04/19/20 04/20/20 04/20/20 18:59 06:59 18:59 Intake Total 1000 1300 1390 Output Total 150 Balance 850 1300 1390 Weight 57.5 kg 55.4 kg Intake: IV 200 Intake, IV Titration 600 700 550 Amount Levofloxacin 500Mg-D5w 100 Pmx 500 mg In Dextrose/ Water 1 100ml.bag @ 100 mls/hr IVPB Q48H [facility] Rx#: [id number] Piperacillin-Tazobactam 3 100 .375 gm In Sodium Chloride 0.9% 100 ml @ 25 mls/hr IVPB Q8HR [facility] Rx# :[id number] Sodium Chloride 0.9% 1, 600 600 450 000 ml @ 75 mls/hr IV . [id number] [facility] Rx#:[id number] Oral 200 600 840 Output: Emesis 150 Other: Voiding Method Toilet Toilet Toilet # Voids 2 - Exam On physical examination, patient appears comfortable in no apparent distress. HEAD: Normocephalic, atraumatic. EYES: No scleral icterus. No conjunctival injection. MOUTH: No lesions, tongue midline. NECK: Trachea midline, no gross abnormalities. ABDOMEN: Soft, thin and nontender. Bowel sounds are positive. No organomegaly. No guarding or rigidity. EXTREMITIES: No pedal edema. SKIN: No rashes, no jaundice. NEUROLOGIC: Alert and oriented x3. No focal deficits. - Labs CBC & Chem 7: 04/20/20 07:05 04/20/20 07:05 Labs: Abnormal Lab Results - Last 24 Hours (Table) 04/19/20 04/20/20 04/20/20 Range/Units 05:47 07:05 07:05 RBC 3.32 L (3.80-5.40) m/uL Hgb 9.0 L (11.4-16.0) gm/dL Hct 29.0 L (34.0-46.0) % MCHC 30.8 L (31.0-37.0) g/dL RDW 16.0 H (11.5-15.5) % BUN 26 H (7-17) mg/dL Creatinine 1.60 H (0.52-1.04) mg/dL Iron 32 L (50-170) ug/dL % Saturation 10.63 L (12.00-45.00) Microbiology - Last 24 Hours (Table) 04/18/20 13:40 Blood Culture - Preliminary Blood No Growth after 24 hours 04/18/20 13:40 Blood Culture - Preliminary Blood No Growth after 24 hours Assessment and Plan (1) Melena Narrative/Plan: 75-year-old female with multiple medical comorbidities including prior gastrectomy with reconstruction at [facility] in 1994 secondary to peptic ulcer disease with recent admissions to the hospital for treatment of hypokalemia and chronic kidney disease who presented back for weakness. Patient was found to have a fall in her hemoglobin down to 5.3 with normocytic indices from 8 on last admission. She denies any overt signs of bleeding but does feel that bowel movements have been darker in color. Stool did test positive for blood. EGD performed on 04/19/2020 with findings of prior gastrectomy with no active bleeding, old blood or pathology to explain anemia noted. Patient was transfused and hemoglobin has remained stable at 9 after transfusion. Tolerating diet. Current Visit: Yes Status: Acute Code(s): K92.1 - MELENA SNOMED Code(s): 3200363 (2) Normocytic anemia Current Visit: Yes Status: Acute Code(s): D64.9 - ANEMIA, UNSPECIFIED SNOMED Code(s): 581583684 Plan: Supportive care Okay for diet Continue to monitor hemoglobin and hematocrit and transfuse as needed Laboratory evaluation of anemia ordered EGD performed in significant for gastrectomy with an old blood or active bleeding noted Iron studies consistent with iron deficiency and IV iron was ordered Thank you for allowing us to participate in the care of the patient
[2020-04-20] MEDS: LORATADINE 10 MG TAB PO SCH (22:07)
[2020-04-20] MEDS: MIRTAZAPINE 45 MG TABLET PO SCH (23:35)
[2020-04-21] MEDS: HYDROmorphone 0.5 MG/0.5 ML SYRINGE IVP PRN ×4 (04:03→23:13)
[2020-04-21] MEDS: SODIUM CHLORIDE 0.9% 1,000 ML IV SCH ×2 (04:05→16:29)
[2020-04-21] MEDS: LEVOTHYROXINE 88 MCG TAB PO SCH (06:03)
[2020-04-21 06:29] LABS: Basophils % (A) 1 %; Eosinophils # (A) 0.3 k/uL (0-0.7); Eosinophils % (A) 4 %; HCT 29.1 % (34.0-46.0); HGB 8.7 gm/dL (11.4-16.0); Hypochromasia Marked; Lymphocytes # (A) 1.1 k/uL (1.0-4.8); Lymphocytes % (A) 14 %; MCH 26.5 pg (25.0-35.0); MCHC 29.9 g/dL (31.0-37.0); MCV 88.6 fL (80.0-100.0); Mean Platelet Volume 7.5; Monocytes # (A) 0.5 k/uL (0-1.0); Monocytes % (A) 7 %; Neutrophils # (A) 5.6 k/uL (1.3-7.7); Neutrophils % (A) 74 %; Platelet Count 217 k/uL (150-450); Poikilocytosis Moderate; RBC 3.28 m/uL (3.80-5.40); RDW 15.9 % (11.5-15.5); WBC 7.6 k/uL (3.8-10.6)
[2020-04-21] MEDS: PANTOPRAZOLE 40 MG/10 ML VIAL IVP SCH ×2 (08:36→21:16)
[2020-04-21] MEDS: THIAMINE 100 MG TAB PO SCH (08:37)
[2020-04-21] MEDS: DULoxetine HCL 60 MG CAPSULE.DR PO SCH (08:37)
[2020-04-21] MEDS: hydrOXYzine pamoate 25 MG CAP PO SCH ×3 (08:37→21:15)
[2020-04-21] MEDS: FOLIC ACID 1 MG TAB PO SCH (08:38)
[2020-04-21] MEDS: buPROPion XL 300 MG TAB.ER.24H PO SCH (08:38)
[2020-04-21] MEDS: HYDROcodone/APAP 5-325MG 1 EACH TAB PO PRN ×3 (08:38→20:01)
[2020-04-21] MEDS: FERROUS SULFATE 325 MG TAB PO SCH (08:39)
[2020-04-21] MEDS: busPIRone HCl 10 MG TAB PO SCH ×2 (08:39→21:14)
[2020-04-21 09:57] LABS: African American GFR (CKD) 39.6 (60.0-200.0); Anion Gap 8.3 mmol/L (4.00-12.00); BUN/Creat Ratio 14.67 Ratio (12.00-20.00); Calcium 7.8 mg/dL (8.7-10.3); Carbon Dioxide 23.7 mmol/L (21.6-31.8); Non-African American GFR(CKD) 34.2 (60.0-200.0)
[2020-04-21] MEDS: SODIUM FERRIC GLUCONAT-SUCROSE 125 MG in SODIUM CHLORIDE 0.9% 100 ML IVPB SCH (11:04)
--- NOTE | 2020-04-21 13:31 | P.PN ---
Subjective Progress Note Date: 04/21/20 Principal diagnosis: Acute GI blood loss anemia The patient seen today in follow-up 04/21/2020 on the regular medical floor. She is awake and alert in no acute distress. Resting fairly comfortably in bed. She was seen for mild pneumonia in the right upper lobe with no significant pulmonary complaints. Maintaining O2 saturations in the mid 90s on room air. She's afebrile. Hemodynamically stable. CoVID 19 testing was negative. She was found to be quite anemic and received 2 units of packed red blood cells this admission. EGD revealed no active bleeding. Blood cultures reveal no growth. White count 7.6. Hemoglobin 8.7. Platelet count 217. Sodium 142. Potassium 4.0. Creatinine 1.5. Presently on IV Protonix. Antibiotics in the form of Levaquin. Objective - Vital Signs Vital signs: Vital Signs Temp 97.8 F 04/21/20 08:00 Pulse 81 04/21/20 08:00 Resp 17 04/21/20 08:00 BP 131/75 04/21/20 08:00 Pulse Ox 97 04/21/20 08:00 Intake & Output 04/20/20 04/21/20 04/21/20 18:59 06:59 18:59 Intake Total 1640 400 Balance 1640 400 Intake: Intake, IV Titration 800 Amount IV Fluid Continuation 400 150 ml @ 0 mls/hr IV .[facility] Rx#:[id number] Levofloxacin 500Mg-D5w 100 Pmx 500 mg In Dextrose/ Water 1 100ml.bag @ 100 mls/hr IVPB Q48H [facility] Rx#: [id number] Sodium Chloride 0.9% 1, 450 000 ml @ 75 mls/hr IV . [id number] [facility] Rx#:[id number] Sodium Ferric Gluconat- 100 Sucrose 125 mg In Sodium Chloride 0.9% 100 ml @ 100 mls/hr IVPB DAILY [facility] Rx#:[id number] Oral 840 400 Other: Voiding Method Toilet - Exam On physical examination, a very pleasant 75-year-old female patient, on room air, patient appears comfortable in no apparent distress. HEAD: Normocephalic, atraumatic. EYES: No scleral icterus. No conjunctival injection. MOUTH: No lesions, tongue midline. NECK: Trachea midline, no gross abnormalities. CHEST: Bilateral scattered rhonchi more so on the right upper lung HEART: Regular rate and rhythm. ABDOMEN: Soft, thin and nontender. Bowel sounds are positive. No organomegaly. No guarding or rigidity. EXTREMITIES: No pedal edema. SKIN: No rashes, no jaundice. NEUROLOGIC: Alert and oriented x3. No focal deficits. - Labs CBC & Chem 7: 04/21/20 05:46 04/21/20 05:46 Labs: Abnormal Lab Results - Last 24 Hours (Table) 04/21/20 04/21/20 Range/Units 05:46 05:46 RBC 3.28 L (3.80-5.40) m/uL Hgb 8.7 L (11.4-16.0) gm/dL Hct 29.1 L (34.0-46.0) % MCHC 29.9 L (31.0-37.0) g/dL RDW 15.9 H (11.5-15.5) % Chloride 110 H (96-109) mmol/L Est GFR (CKD-EPI)AfAm 39.6 L (60.0-200.0) Est GFR (CKD-EPI)NonAf 34.2 L (60.0-200.0) Calcium 7.8 L (8.7-10.3) mg/dL Microbiology - Last 24 Hours (Table) 04/18/20 13:40 Blood Culture - Preliminary Blood No Growth after 48 hours 04/18/20 13:40 Blood Culture - Preliminary Blood No Growth after 48 hours Assessment and Plan Assessment: 1 Generalized weakness and fatigue secondary to acute GI blood loss. Status post 2 units of packed red blood cells. EGD was nondiagnostic with no active bleeding 2 Mild right upper lobe pneumonia improving on x-ray. No symptoms clinically. On room air 3 History of chronic bronchial asthma, currently inactive and stable 4 Lifelong nonsmoker 5 History of DVT 6 Gastroesophageal reflux disease 7 History of dementia 8 Severe arthritis 9 Prior history of gastric ulcer 10 Migraine cephalgia 11 History of pancreatitis 12 History of spinal stenosis 13 Poor overall functional performance based on the above-mentioned multiple comorbidities Plan: The patient was seen and evaluated by Dr. Sanchez She remains stable from the pulmonary standpoint, on room air Chest x-ray revealed cranial layering of the right upper lung pneumonia Complete a course of Levaquin Discharge planning in place I, the cosigning physician, performed a history & physical examination of the patient. Lungs sounds with few scattered rhonchi more so on the right. Maintaining good O2 saturations in the 90s on room air. I discussed the assessment and plan of care with my nurse practitioner, Leyla Grace. I attest to the above note as dictated by her.
[2020-04-21] MEDS: IOPAMIDOL CONTRAST (ORAL USE) VIAL PO PRN ×2 (14:20→15:22)
--- NOTE | 2020-04-21 15:43 | PN ---
PROGRESS NOTE DATE OF SERVICE: 04/21/2020 INTERVAL HISTORY: This is a 75-year-old woman who was admitted with acute blood loss anemia also had right upper lobe pneumonia. The patient is being closely monitored at this time. Dr. Sanchez is following the patient closely. The patient is on broad-spectrum IV antibiotics. Most recent chest x-ray showed persistence of the pneumonia on the right upper lobe. PHYSICAL EXAMINATION: GENERAL: Patient is alert and oriented times three. VITAL SIGNS: Pulse 92, blood pressure 117/70, respirations 20, temperature 98, pulse ox 92% on room air. HEENT: Conjunctivae normal. NECK: No jugular venous distention. No carotid bruits. No lymph node enlargement. RESPIRATORY: Breath sounds diminished at the bases. A few scattered rhonchi. HEART: S1 and S2, muffled. ABDOMEN: Soft, no tenderness. No masses palpable. EXTREMITIES: No edema, no swelling. NERVOUS: No focal deficits. LABS: WBC 7.2, hemoglobin is 8.7. ASSESSMENT: 1. Acute blood loss anemia with acute GI bleed status post 2 units of transfusion. 2. Right upper lobe pneumonia, possibly community-acquired pneumonia, possibly aspiration. 3. COVID-19 ruled out. 4. EGD showing gastrectomy, no other pathology. 5. Elevated D-dimer without any evidence of pulmonary embolism. 6. Elevated creatinine with acute on chronic kidney disease stage 3 baseline. 7. Elevated procalcitonin on admission. 8. Stool OB positive. 9. History of asthma. 10.History of DVT. 11.History of gastrectomy. 12.Social issues. 13.History of gastroesophageal reflux disease. 14.History of memory impairment. 15.History of degenerative joint disease. 16.Gait dysfunction. 17.History of stomach ulcer. 18.History of pancreatitis. 19.History of transient ischemic attack .. 20.History of spinal stenosis. 21.History of fall. 22.Severe protein calorie malnutrition with body mass index of 15.5. 23.Anxiety, depression and panic disorder. 24.History of narcotic abuse. RECOMMENDATIONS AND DISCUSSION: I recommend to continue current medications, continue to monitor and with symptomatic treatment. At this time I recommend a CT scan of the abdomen pelvis to complete the workup. PT OT evaluation, possible ECF rehab. production staff worker to address the social issues and prognosis is guarded. Further recommendations to follow. MMODL / IJN: [id number] /
--- NOTE | 2020-04-21 17:00 | CT ---
EXAMINATION TYPE: CT ChestAbdPelvis wo con DATE OF EXAM: 04/21/2020 COMPARISON: CT abdomen pelvis 03/24/2014 HISTORY: Generalized weakness and abdominal pain. CT DLP: 425.7 mGycm Automated exposure control for dose reduction was used. Images were obtained from the thoracic inlet to the floor the pelvis with oral contrast only. There are moderate bilateral pleural effusions. There is bilateral basilar pulmonary atelectasis and infiltrate. There is large area of airspace consolidation in the posterior aspect of the right upper lobe. Heart size is fairly normal. There is hiatal hernia. There is bronchial cartilage calcification . Thoracic aorta is atheromatous. 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 There is coronary ar gerard calcification. There is no mediastinal adenopathy. Liver shows no focal defect. There is no evidence of a splenic mass. There is surgical clips at the s tomach. There is no evidence of pancreatic mass. The bile ducts are not dilated. Gallbladder appears normal. There is no adrenal mass. There is some cortical thinning lower pole right kidney. There is no hydron ephrosis. Ureters are not dilated. Exam limited by metal artifact from lumbar spine surgery and hip s urgery. There is fairly normal contrast opacification of the small bowel with oral contrast. There is no evidence of a bowel obstruction. There is small amount of free fluid in the abdomen. There is dif fuse subcutaneous edema around the abdomen. There is no evidence of free air. There is a first-degree L4-5 spondylolisthesis. There is no lumbar or thoracic compression fracture. The bony pelvis appears intact. IMPRESSION: Bilateral pleural effusions and basilar pulmonary infiltrates and atelectasis. Diffuse subcutaneous e cyndi could relate to anasarca. Minimal intraperitoneal fluid in the right paracolic gutter. Congestiv e heart failure is possible. Pleural effusions are new compared to old exam. Minimal ascites fluid is new compared to old exam. Th ere is improvement in the constipation compared to old exam.
--- NOTE | 2020-04-21 18:11 | P.PN ---
Subjective Progress Note Date: 04/21/20 Principal diagnosis: normocytic anemia, melena Patient is seen lying in bed she is tolerated her diet. No nausea or vomiting. No bowel movements today. No signs or symptoms of GI bleeding. Objective - Vital Signs Vital signs: Vital Signs Temp 97.8 F 04/21/20 08:00 Pulse 81 04/21/20 08:00 Resp 17 04/21/20 08:00 BP 131/75 04/21/20 08:00 Pulse Ox 97 04/21/20 08:00 Intake & Output 04/20/20 04/21/20 04/21/20 18:59 06:59 18:59 Intake Total 1640 400 Balance 1640 400 Intake: Intake, IV Titration 800 Amount IV Fluid Continuation 400 150 ml @ 0 mls/hr IV .[facility] Rx#:[id number] Levofloxacin 500Mg-D5w 100 Pmx 500 mg In Dextrose/ Water 1 100ml.bag @ 100 mls/hr IVPB Q48H [facility] Rx#: [id number] Sodium Chloride 0.9% 1, 450 000 ml @ 75 mls/hr IV . [id number] [facility] Rx#:[id number] Sodium Ferric Gluconat- 100 Sucrose 125 mg In Sodium Chloride 0.9% 100 ml @ 100 mls/hr IVPB DAILY [facility] Rx#:[id number] Oral 840 400 Other: Voiding Method Toilet - Exam On physical examination, patient appears comfortable in no apparent distress. HEAD: Normocephalic, atraumatic. EYES: No scleral icterus. No conjunctival injection. MOUTH: No lesions, tongue midline. NECK: Trachea midline, no gross abnormalities. ABDOMEN: Soft, thin and nontender. Bowel sounds are positive. No organomegaly. No guarding or rigidity. EXTREMITIES: No pedal edema. SKIN: No rashes, no jaundice. NEUROLOGIC: Alert and oriented x3. No focal deficits. - Labs CBC & Chem 7: 04/21/20 05:46 04/21/20 05:46 Labs: Abnormal Lab Results - Last 24 Hours (Table) 04/21/20 04/21/20 Range/Units 05:46 05:46 RBC 3.28 L (3.80-5.40) m/uL Hgb 8.7 L (11.4-16.0) gm/dL Hct 29.1 L (34.0-46.0) % MCHC 29.9 L (31.0-37.0) g/dL RDW 15.9 H (11.5-15.5) % Chloride 110 H (96-109) mmol/L Est GFR (CKD-EPI)AfAm 39.6 L (60.0-200.0) Est GFR (CKD-EPI)NonAf 34.2 L (60.0-200.0) Calcium 7.8 L (8.7-10.3) mg/dL Microbiology - Last 24 Hours (Table) 04/18/20 13:40 Blood Culture - Preliminary Blood No Growth after 48 hours 04/18/20 13:40 Blood Culture - Preliminary Blood No Growth after 48 hours Assessment and Plan (1) Melena Narrative/Plan: 75-year-old female with multiple medical comorbidities including prior gastrectomy with reconstruction at [facility] in 1994 secondary to peptic ulcer disease with recent admissions to the hospital for treatment of hypokalemia and chronic kidney disease who presented back for weakness. Patient was found to have a fall in her hemoglobin down to 5.3 with normocytic indices from 8 on last admission. She denies any overt signs of bleeding but does feel that bowel movements have been darker in color. Stool did test positive for blood. EGD performed on 04/19/2020 with findings of prior gastrectomy with no active bleeding, old blood or pathology to explain anemia noted. Patient was transfused and hemoglobin has remained stable at 8.7 after transfusion. Tolerating diet. Current Visit: Yes Status: Acute Code(s): K92.1 - MELENA SNOMED Code(s): 9075284 (2) Normocytic anemia Current Visit: Yes Status: Acute Code(s): D64.9 - ANEMIA, UNSPECIFIED SNOMED Code(s): 569831036 Plan: Supportive care Okay for diet Continue to monitor hemoglobin and hematocrit and transfuse as needed Laboratory evaluation of anemia ordered EGD performed in significant for gastrectomy with an old blood or active bleeding noted Iron studies consistent with iron deficiency and IV iron was ordered for 2 doses, we'll order an additional dose for tomorrow Thank you for allowing us to participate in the care of the patient
[2020-04-21] MEDS: MIRTAZAPINE 45 MG TABLET PO SCH (21:14)
[2020-04-21] MEDS: LORATADINE 10 MG TAB PO SCH (21:17)
[2020-04-22] MEDS: HYDROcodone/APAP 5-325MG 1 EACH TAB PO PRN ×3 (04:49→17:01)
[2020-04-22] MEDS: SODIUM CHLORIDE 0.9% 1,000 ML IV SCH (05:13)
[2020-04-22] MEDS: LEVOTHYROXINE 88 MCG TAB PO SCH (05:30)
[2020-04-22] MEDS: HYDROmorphone 0.5 MG/0.5 ML SYRINGE IVP PRN ×3 (05:57→18:06)
[2020-04-22] MEDS: PANTOPRAZOLE 40 MG/10 ML VIAL IVP SCH ×2 (08:17→21:51)
[2020-04-22] MEDS: FERROUS SULFATE 325 MG TAB PO SCH (08:17)
[2020-04-22] MEDS: DULoxetine HCL 60 MG CAPSULE.DR PO SCH (08:17)
[2020-04-22] MEDS: LEVOFLOXACIN 500 MG TAB PO SCH (08:17)
[2020-04-22] MEDS: busPIRone HCl 10 MG TAB PO SCH ×2 (08:17→21:50)
[2020-04-22] MEDS: THIAMINE 100 MG TAB PO SCH (08:17)
[2020-04-22] MEDS: buPROPion XL 300 MG TAB.ER.24H PO SCH (08:17)
[2020-04-22] MEDS: hydrOXYzine pamoate 25 MG CAP PO SCH ×3 (08:18→21:49)
[2020-04-22] MEDS: FOLIC ACID 1 MG TAB PO SCH (08:18)
[2020-04-22] MEDS ORDERED: FUROSEMIDE 10 MG/ML 2 ML VIAL IV ONE (09:56)
--- NOTE | 2020-04-22 10:14 | P.PN ---
Subjective Progress Note Date: 04/22/20 Principal diagnosis: normocytic anemia, melena Patient is seen lying in bed eating her breakfast. No acute complaints at this time. No bowel movements reported today. Objective - Vital Signs Vital signs: Vital Signs Temp 97.8 F 04/22/20 08:00 Pulse 86 04/22/20 08:00 Resp 17 04/22/20 08:00 BP 160/81 04/22/20 08:00 Pulse Ox 98 04/22/20 08:00 Intake & Output 04/21/20 04/22/20 04/22/20 18:59 06:59 18:59 Intake Total 1000 1440 Balance 1000 1440 Intake: Intake, IV Titration 1000 900 Amount Sodium Chloride 0.9% 1, 900 900 000 ml @ 75 mls/hr IV . [id number] [facility] Rx#:[id number] Sodium Ferric Gluconat- 100 Sucrose 125 mg In Sodium Chloride 0.9% 100 ml @ 100 mls/hr IVPB DAILY [facility] Rx#:[id number] Oral 540 Other: # Voids 2 2 - Exam On physical examination, patient appears comfortable in no apparent distress. HEAD: Normocephalic, atraumatic. EYES: No scleral icterus. No conjunctival injection. MOUTH: No lesions, tongue midline. NECK: Trachea midline, no gross abnormalities. ABDOMEN: Soft, thin and nontender. Bowel sounds are positive. No organomegaly. No guarding or rigidity. EXTREMITIES: No pedal edema. SKIN: No rashes, no jaundice. NEUROLOGIC: Alert and oriented x3. No focal deficits. - Labs CBC & Chem 7: 04/21/20 05:46 04/21/20 05:46 Labs: Abnormal Lab Results - Last 24 Hours (Table) 04/21/20 Range/Units 05:46 Chloride 110 H (96-109) mmol/L Est GFR (CKD-EPI)AfAm 39.6 L (60.0-200.0) Est GFR (CKD-EPI)NonAf 34.2 L (60.0-200.0) Calcium 7.8 L (8.7-10.3) mg/dL Microbiology - Last 24 Hours (Table) 04/18/20 13:40 Blood Culture - Preliminary Blood No Growth after 72 hours 04/18/20 13:40 Blood Culture - Preliminary Blood No Growth after 72 hours Assessment and Plan (1) Melena Narrative/Plan: 75-year-old female with multiple medical comorbidities including prior gastrectomy with reconstruction at [facility] in 1994 secondary to peptic ulcer disease with recent admissions to the hospital for treatment of hypokalemia and chronic kidney disease who presented back for weakness. Patient was found to have a fall in her hemoglobin down to 5.3 with normocytic indices from 8 on last admission. She denies any overt signs of bleeding but does feel that bowel movements have been darker in color. Stool did test positive for blood. EGD performed on 04/19/2020 with findings of prior gastrectomy with no active bleeding, old blood or pathology to explain anemia noted. Patient was transfused and hemoglobin has remained stable at 8.7 yesterday from 9 the previous day. Computed tomography scan of the abdomen was performed yesterday with no acute intra-abdominal pathology noted. Current Visit: Yes Status: Acute Code(s): K92.1 - MELENA SNOMED Code(s): 7157727 (2) Normocytic anemia Current Visit: Yes Status: Acute Code(s): D64.9 - ANEMIA, UNSPECIFIED SNOMED Code(s): 060177310 Plan: Supportive care Okay for diet Continue to monitor hemoglobin and hematocrit and transfuse as needed Laboratory evaluation of anemia ordered EGD performed in significant for gastrectomy with an old blood or active bleeding noted Iron studies consistent with iron deficiency and IV iron was ordered, and patient now receiving oral iron ordered by the primary team Thank you for allowing us to participate in the care of the patient
[2020-04-22 10:51] VITALS: BMI 22.3
--- NOTE | 2020-04-22 12:21 | P.PN ---
Subjective Progress Note Date: 04/22/20 Principal diagnosis: Acute GI blood loss anemia The patient seen today in follow-up 04/21/2020 on the regular medical floor. She is awake and alert in no acute distress. Resting fairly comfortably in bed. She was seen for mild pneumonia in the right upper lobe with no significant pulmonary complaints. Maintaining O2 saturations in the mid 90s on room air. She's afebrile. Hemodynamically stable. CoVID 19 testing was negative. She was found to be quite anemic and received 2 units of packed red blood cells this admission. EGD revealed no active bleeding. Blood cultures reveal no growth. White count 7.6. Hemoglobin 8.7. Platelet count 217. Sodium 142. Potassium 4.0. Creatinine 1.5. Presently on IV Protonix. Antibiotics in the form of Levaquin. The patient is seen today 04/22/2020 in follow-up on the regular medical floor. She is currently resting comfortably in bed. Awake and alert in no acute distress. She is maintaining O2 saturation in the 90s on room air. She is however complaining of some shortness of breath. She also had been complaining of abdominal discomfort. A computed tomography scan of the chest abdomen and pelvis performed yesterday revealed bilateral pleural effusions and basilar pulmonary infiltrate/atelectasis. Diffuse subcutaneous edema could be related to anasarca. Minimal intraperitoneal fluid in the right paracolic gutter. Congestive heart failure is suspected. ProBNP 389. She has received 2 units of packed red blood cells this admission. Last hemoglobin 8.7. Blood cultures reveal no growth to date. She remains on antibiotics in the form of Levaquin. Objective - Vital Signs Vital signs: Vital Signs Temp 97.8 F 04/22/20 08:00 Pulse 86 04/22/20 08:00 Resp 17 04/22/20 08:00 BP 160/81 04/22/20 08:00 Pulse Ox 98 04/22/20 08:00 Intake & Output 04/21/20 04/22/20 04/22/20 18:59 06:59 18:59 Intake Total 1000 1440 Balance 1000 1440 Weight 55.4 kg Intake: Intake, IV Titration 1000 900 Amount Sodium Chloride 0.9% 1, 900 900 000 ml @ 75 mls/hr IV . [id number] [facility] Rx#:[id number] Sodium Ferric Gluconat- 100 Sucrose 125 mg In Sodium Chloride 0.9% 100 ml @ 100 mls/hr IVPB DAILY [facility] Rx#:[id number] Oral 540 Other: # Voids 2 2 - Exam On physical examination, a very pleasant 75-year-old female patient, on room air, patient appears comfortable in no apparent distress. HEAD: Normocephalic, atraumatic. EYES: No scleral icterus. No conjunctival injection. MOUTH: No lesions, tongue midline. NECK: Trachea midline, no gross abnormalities. CHEST: Bilateral scattered rhonchi more so on the right upper lung HEART: Regular rate and rhythm. ABDOMEN: Soft, thin and nontender. Bowel sounds are positive. No organomegaly. No guarding or rigidity. EXTREMITIES: No pedal edema. SKIN: No rashes, no jaundice. NEUROLOGIC: Alert and oriented x3. No focal deficits. - Labs CBC & Chem 7: 04/21/20 05:46 04/21/20 05:46 Labs: Microbiology - Last 24 Hours (Table) 04/18/20 13:40 Blood Culture - Preliminary Blood No Growth after 72 hours 04/18/20 13:40 Blood Culture - Preliminary Blood No Growth after 72 hours Assessment and Plan Assessment: 1 Generalized weakness and fatigue secondary to acute GI blood loss. Status post 2 units of packed red blood cells. EGD was nondiagnostic with no active bleeding 2 Mild right upper lobe pneumonia improving on x-ray. No symptoms clinically. On room air 3 History of chronic bronchial asthma, currently inactive and stable 4 Lifelong nonsmoker 5 History of DVT 6 Gastroesophageal reflux disease 7 History of dementia 8 Severe arthritis 9 Prior history of gastric ulcer 10 Migraine cephalgia 11 History of pancreatitis 12 History of spinal stenosis 13 Poor overall functional performance based on the above-mentioned multiple comorbidities Plan: The patient was seen and evaluated by Dr. Sanchez Computed tomography scan of the chest abdomen pelvis reviewed The Lasix 20 g IVP 1, PIVL the IV Add oxygen at 2 L/m per nasal cannula Complete a course of Levaquin We will continue to follow I, the cosigning physician, performed a history & physical examination of the patient. Lungs sounds with few scattered rhonchi more so on the right. Maintaining good O2 saturations in the 90s on room air. I discussed the assessment and plan of care with my nurse practitioner, Leyla Grace. I attest to the above note as dictated by her.
--- NOTE | 2020-04-22 15:58 | PN ---
PROGRESS NOTE DATE OF SERVICE: 04/22/2020 This 75-year-old woman who was admitted with acute blood loss anemia, had 2 units of transfusion. Patient had right upper lobe pneumonia possibly community-acquired pneumonia. The patient also has significant pain issues. Patient is also taking 100 mcg Duragesic patch at this time. Covid 19 has been ruled out. Multiple consultants are following the patient closely. CT scan showed evidence of left pleural effusion also. The possibility of CHF has been raised. The patient has received Lasix [address] Sanchez. The patient is feeling much better at this time. The NT proBNP is only in the 300s. A 2D echo with Doppler has been ordered. Past medical history reviewed. REVIEW OF SYSTEMS: CARDIOVASCULAR SYSTEM: No angina. No palpitations. Respirations: As mentioned earlier. GI mentioned earlier. : No dysuria. NERVOUS SYSTEM: No numbness. No weakness. CURRENT MEDICATIONS: Reviewed and include: Dilaudid, Vistaril, Levaquin, Synthroid, Claritin, Remeron. Protonix. Sudafed, vitamin B1 and Tigan. PHYSICAL EXAM: Patient is alert and oriented times three. Pulse 86. Blood pressure 158/72, respiration 17, temperature 97.8, pulse ox 98% on room air. HEENT: Conjunctivae normal. NECK: No JVD. CARDIOVASCULAR: S1, S2 muffled. Respiration: Breath sounds diminished in the bases. A few scattered rhonchi and crackles. ABDOMEN: Obese, soft, nontender. No mass palpable. Legs: No edema. No swelling. Nervous system: Higher functions as mentioned. Moves all four limbs. NERVOUS SYSTEM: No focal motor or sensory deficits. Lymphatics: No lymph nodes palpable in the neck, axillae or groin. SKIN: No ulcer, rash or bleeding. JOINTS: No active deforming arthropathy. LABS: Hemoglobin 8.7 yesterday. Today's hemoglobin is not available. Influenza is negative. ASSESSMENT: 1. Acute blood loss anemia with acute gastrointestinal bleed status post 2 unit transfusion, present on admission. 2. Right upper lobe pneumonia possibly community-acquired pneumonia possibly aspiration. 3. Covid 19 ruled out. 4. Left pleural effusion. 5. Rule out congestive heart failure. 6. EGD showing gastrectomy. No other findings. 7. Elevated D-dimer without any evidence of pulmonary embolism. 8. Elevated creatinine with acute on chronic kidney disease stage 3 baseline. 9. History of procalcitonin on admission, increased. 10.Stool OB positive. 11.History of asthma. 12.History of deep vein thrombosis. 13.History of gastrectomy. 14.History of social issues. 15.History of gastroesophageal reflux disease. 16.History of memory impairment. 17.History of degenerative joint disease. 18.History of gait dysfunction. 19.History of stomach ulcer. 20.History of pancreatitis. 21.History of transient ischemic attack. 22.History of spinal stenosis. 23.History of fall. 24.History of severe protein calorie malnutrition with body mass index of 15.5. 25.Anxiety, depression panic disorder. 26.History of narcotic abuse. RECOMMENDATIONS AND DISCUSSION: Recommend to continue current management and symptomatic treatment. Otherwise, at this time I recommend a 2D echo with Doppler. The patient is given Lasix. Continue to monitor fluid/electrolyte balance closely. We will closely follow with multiple consultants. PT/OT evaluation, possible ECF rehab. Guarded prognosis. Further recommendations to follow. MMODL / IJN: [id number] /
[2020-04-22] MEDS: LORATADINE 10 MG TAB PO SCH (21:49)
[2020-04-22] MEDS: MIRTAZAPINE 45 MG TABLET PO SCH (21:51)
[2020-04-23] MEDS: HYDROmorphone 0.5 MG/0.5 ML SYRINGE IVP PRN ×4 (00:28→20:56)
[2020-04-23] MEDS: HYDROcodone/APAP 5-325MG 1 EACH TAB PO PRN ×4 (04:19→23:29)
[2020-04-23] MEDS: LEVOTHYROXINE 88 MCG TAB PO SCH (05:36)
[2020-04-23 06:40] LABS: Basophils # (A) 0.1 k/uL (0-0.2); Basophils % (A) 1 %; Eosinophils # (A) 0.3 k/uL (0-0.7); Eosinophils % (A) 4 %; HCT 31.8 % (34.0-46.0); HGB 9.3 gm/dL (11.4-16.0); Hypochromasia Marked; Lymphocytes % (A) 25 %; MCH 26.6 pg (25.0-35.0); MCHC 29.4 g/dL (31.0-37.0); MCV 90.7 fL (80.0-100.0); Mean Platelet Volume 7.6; Monocytes # (A) 0.6 k/uL (0-1.0); Monocytes % (A) 7 %; Neutrophils # (A) 4.9 k/uL (1.3-7.7); Neutrophils % (A) 61 %; Platelet Count 233 k/uL (150-450); Poikilocytosis Slight; RBC 3.51 m/uL (3.80-5.40); RDW 15.9 % (11.5-15.5); WBC 8.1 k/uL (3.8-10.6)
[2020-04-23] MEDS: busPIRone HCl 10 MG TAB PO SCH ×2 (07:18→20:55)
[2020-04-23] MEDS: PANTOPRAZOLE 40 MG/10 ML VIAL IVP SCH ×2 (07:18→20:56)
[2020-04-23] MEDS: buPROPion XL 300 MG TAB.ER.24H PO SCH (07:18)
[2020-04-23] MEDS: FERROUS SULFATE 325 MG TAB PO SCH (07:19)
[2020-04-23] MEDS: DULoxetine HCL 60 MG CAPSULE.DR PO SCH (07:19)
[2020-04-23] MEDS: THIAMINE 100 MG TAB PO SCH (07:19)
[2020-04-23] MEDS: FOLIC ACID 1 MG TAB PO SCH (07:19)
[2020-04-23] MEDS: hydrOXYzine pamoate 25 MG CAP PO SCH ×3 (07:19→20:55)
[2020-04-23 09:42] LABS: African American GFR (CKD) 36.7 (60.0-200.0); Anion Gap 7.4 mmol/L (4.00-12.00); BUN/Creat Ratio 19.38 Ratio (12.00-20.00); Calcium 8.3 mg/dL (8.7-10.3); Carbon Dioxide 23.6 mmol/L (21.6-31.8); Non-African American GFR(CKD) 31.6 (60.0-200.0); Potassium 4.4 mmol/L (3.5-5.5)
--- NOTE | 2020-04-23 15:16 | P.PN ---
Subjective Progress Note Date: 04/23/20 Principal diagnosis: Acute GI blood loss anemia The patient seen today in follow-up 04/21/2020 on the regular medical floor. She is awake and alert in no acute distress. Resting fairly comfortably in bed. She was seen for mild pneumonia in the right upper lobe with no significant pulmonary complaints. Maintaining O2 saturations in the mid 90s on room air. She's afebrile. Hemodynamically stable. CoVID 19 testing was negative. She was found to be quite anemic and received 2 units of packed red blood cells this admission. EGD revealed no active bleeding. Blood cultures reveal no growth. White count 7.6. Hemoglobin 8.7. Platelet count 217. Sodium 142. Potassium 4.0. Creatinine 1.5. Presently on IV Protonix. Antibiotics in the form of Levaquin. The patient is seen today 04/22/2020 in follow-up on the regular medical floor. She is currently resting comfortably in bed. Awake and alert in no acute distress. She is maintaining O2 saturation in the 90s on room air. She is however complaining of some shortness of breath. She also had been complaining of abdominal discomfort. A computed tomography scan of the chest abdomen and pelvis performed yesterday revealed bilateral pleural effusions and basilar pulmonary infiltrate/atelectasis. Diffuse subcutaneous edema could be related to anasarca. Minimal intraperitoneal fluid in the right paracolic gutter. Congestive heart failure is suspected. ProBNP 389. She has received 2 units of packed red blood cells this admission. Last hemoglobin 8.7. Blood cultures reveal no growth to date. She remains on antibiotics in the form of Levaquin. On 04/23/2020 patient seen in follow-up on selective care unit, she is resting comfortably in bed, she status post EGD which showed findings of prior ga strectomy with no active bleeding. Patient is status post transfusion 2 units of packed red blood cells, today's hemoglobin is 9.3, she's had no active bleeding, she is tolerating oral intake, no abdominal pain. Looks very comfortable, she denies any shortness of breath, her CTA of the chest abdomen and pelvis showed bilateral pleural effusions and basilar pulmonary infiltrates and atelectasis and patient remains on antibiotics in the form of Levaquin for possibility of pneumonia, she is not complaining of any significant pulmonary symptoms at this time. He is on 2 L of oxygen her pulse ox of 99%, she's been afebrile. No cough, no complete chest pain. Cultures have been negative Objective - Vital Signs Vital signs: Vital Signs Temp 98.0 F 04/23/20 13:42 Pulse 106 H 04/23/20 13:42 Resp 20 04/23/20 13:42 BP 111/81 04/23/20 13:42 Pulse Ox 99 04/23/20 13:42 Intake & Output 04/22/20 04/23/20 04/23/20 18:59 06:59 18:59 Weight 55.4 kg Other: Voiding Method Toilet Toilet # Voids 4 4 # Bowel Movements 1 - Exam GENERAL EXAM: Alert, very pleasant, 75-year-old white female at 2 L of oxygen pulse ox of 99% comfortable in no apparent distress. HEAD: Normocephalic/atraumatic. EYES: Normal reaction of pupils, equal size. Conjunctiva pink, sclera white. NOSE: Clear with pink turbinates. THROAT: No erythema or exudates. NECK: No masses, no JVD, no thyroid enlargement, no adenopathy. CHEST: No chest wall deformity. Symmetrical expansion. LUNGS: Equal air entry with no crackles, wheeze, rhonchi or dullness. CVS: Regular rate and rhythm, normal S1 and S2, no gallops, no murmurs, no rubs ABDOMEN: Soft, nontender. No hepatosplenomegaly, normal bowel sounds, no guarding or rigidity. EXTREMITIES: No clubbing, no edema, no cyanosis, 2+ pulses and upper and lower extremities. MUSCULOSKELETAL: Muscle strength and tone normal. SPINE: No scoliosis or deformity SKIN: No rashes CENTRAL NERVOUS SYSTEM: Alert and oriented -3. No focal deficits, tone is normal in all 4 extremities. PSYCHIATRIC: Alert and oriented -3. Appropriate affect. Intact judgment and insight. - Labs CBC & Chem 7: 04/23/20 05:13 04/23/20 05:13 Labs: Abnormal Lab Results - Last 24 Hours (Table) 04/23/20 04/23/20 Range/Units 05:13 05:13 RBC 3.51 L (3.80-5.40) m/uL Hgb 9.3 L (11.4-16.0) gm/dL Hct 31.8 L (34.0-46.0) % MCHC 29.4 L (31.0-37.0) g/dL RDW 15.9 H (11.5-15.5) % Chloride 110 H (96-109) mmol/L BUN 31.0 H (9.0-27.0) mg/dL Creatinine 1.6 H (0.6-1.5) mg/dL Est GFR (CKD-EPI)AfAm 36.7 L (60.0-200.0) Est GFR (CKD-EPI)NonAf 31.6 L (60.0-200.0) Calcium 8.3 L (8.7-10.3) mg/dL Microbiology - Last 24 Hours (Table) 04/18/20 13:40 Blood Culture - Preliminary Blood No Growth after 96 hours 04/18/20 13:40 Blood Culture - Preliminary Blood No Growth after 96 hours Assessment and Plan Plan: Assessment: #1. Generalized weakness and fatigue secondary to acute GI blood loss anemia, status post 2 units of packed red blood cell transfusion, EGD showed gastrectomy without active bleeding #2. Mild right upper lobe pneumonia, maintained on Levaquin #3. History of chronic bronchial asthma, currently inactive in stable #4. Left lung nonsmoker #5. History of DVT #6. GERD/reflux #7. History of dementia #8. Severe arthritis #9. Prior history of gastric ulcer #10. Migraine thousand #11. History of pancreatitis #12. History of spinal stenosis #13. Poor overall functional performance Plan: Continue current antibiotics, wean FiO2, satting stable overnight, no worsening dyspnea, no cough or congestion. We'll continue to follow. Charge planning is in progress for possible discharge to [facility] cleared by medicine I performed a history & physical examination of the patient and discussed their management with my nurse practitioner, Brittany Garcia. I reviewed the nurse practitioner's note and agree with the documented findings and plan of care. Lung sounds are positive for diminished breath sounds.. The findings and the impression was discussed with the patient. I attest to the documentation by the nurse practitioner. Time with Patient: Less than 30
--- NOTE | 2020-04-23 17:24 | P.PN ---
Subjective Progress Note Date: 04/23/20 Principal diagnosis: normocytic anemia, melena The patient seen lying in bed. She denies any abdominal pain, nausea, or vomiting. She states she had a bowel movement yesterday, no noted or melena. Hemoglobin is stable today at 9.3. She is status post blood transfusion and IV iron. She also went upper endoscopy this admission on 04/19/2020 that showed no active bleeding or old blood. Evidence of prior gastrectomy. Patient was diagnosed with pneumonia and is currently being treated with Levaquin. Pulmonology is following. Objective - Vital Signs Vital signs: Vital Signs Temp 97.1 F L 04/23/20 08:00 Pulse 78 04/23/20 08:00 Resp 18 04/23/20 08:00 BP 118/71 04/23/20 08:00 Pulse Ox 96 04/23/20 08:00 Intake & Output 04/22/20 04/23/20 04/23/20 18:59 06:59 18:59 Weight 55.4 kg Other: Voiding Method Toilet Toilet # Voids 4 4 # Bowel Movements 1 - Exam General appearance: The patient is alert, oriented, in no acute distress. HET: Head is normocephalic and atraumatic. Conjunctiva pink. Sclera anicteric. Neck: Supple without lymphadenopathy. Abdomen: Soft, nontender, nondistended with bowel sounds. No guarding or rigidity. Extremities: Normal skin color and turgor. No pedal edema Neurological: No focal deficits. Alert and oriented 3. - Labs CBC & Chem 7: 04/23/20 05:13 04/23/20 05:13 Labs: Abnormal Lab Results - Last 24 Hours (Table) 04/23/20 04/23/20 Range/Units 05:13 05:13 RBC 3.51 L (3.80-5.40) m/uL Hgb 9.3 L (11.4-16.0) gm/dL Hct 31.8 L (34.0-46.0) % MCHC 29.4 L (31.0-37.0) g/dL RDW 15.9 H (11.5-15.5) % Chloride 110 H (96-109) mmol/L BUN 31.0 H (9.0-27.0) mg/dL Creatinine 1.6 H (0.6-1.5) mg/dL Est GFR (CKD-EPI)AfAm 36.7 L (60.0-200.0) Est GFR (CKD-EPI)NonAf 31.6 L (60.0-200.0) Calcium 8.3 L (8.7-10.3) mg/dL Microbiology - Last 24 Hours (Table) 04/18/20 13:40 Blood Culture - Preliminary Blood No Growth after 96 hours 04/18/20 13:40 Blood Culture - Preliminary Blood No Growth after 96 hours Assessment and Plan (1) Melena Narrative/Plan: This is a 75-year-old female with multiple medical comorbidities including prior gastrectomy with reconstruction at [facility] in 1994 secondary to peptic ulcer disease with recent admissions to the hospital for treatment of hypokalemia and chronic kidney disease who presented back for weakness. Patient was found to have a fall in her hemoglobin down to 5.3 with normocytic indices from 8 on last admission. She denies any overt signs of bleeding but does feel that bowel movements have been darker in color. Stool did test positive for blood. EGD performed on 04/19/2020 with findings of prior gastrectomy with no active bleeding, old blood or pathology to explain anemia noted. Patient was transfused and hemoglobin has remained stable and improved to 9.3 form 8.6 yesterday. Computed tomography scan of the abdomen was performed with no acute intra-abdominal pathology noted. Recommended that patient follow up with gastroenterology for outpatient colonoscopy, and agreeable with plan. Current Visit: Yes Status: Acute Code(s): K92.1 - MELENA SNOMED Code(s): 4397891 (2) Normocytic anemia Current Visit: Yes Status: Acute Code(s): D64.9 - ANEMIA, UNSPECIFIED SNOMED Code(s): 993741053 Plan: 1. Supportive care 2. Diet as tolerated 3. Continue to monitor hemoglobin and hematocrit, transfuse as needed 4. Laboratory evaluation for anemia ordered and reviewed 5. EGD performed 6. Iron studies consistent with iron deficiency and IV iron was ordered, patient now receiving oral iron per primary team 7. Recommend patient to follow-up with gastroenterology and have outpatient colonoscopy We will be on standby, please do not hesitate to call us with any further signs of GI bleed. Dr. Tayler White I agree with the dictator's note, documented as a scribe by Nandini Perez.
--- NOTE | 2020-04-23 17:46 | P.PN ---
Subjective Progress Note Date: 04/23/20 At this time I am assuming care for this patient, I was away for the last 10 days and [facility] were covering for me during that time. Louise Sutton is a 75-year-old female who presented to [facility] emergency room with a chief complaint of generalized weakness, hemoglobin on presentation was 5.3 patient was admitted to medical floor she was seen by gastroenterology she underwent EGD but no source of bleeding was found, patient had red blood cell transfusion, her hemoglobin has been stable for the last few days. Patient was also found to have bilateral basilar infiltrate suggestive of pneumonia with bilateral pleural effusion she was started on IV antibiotics, p ulmonary consultation was requested. On 04/23/2020 patient was seen and examined on the medical floor she is alert and oriented 3 in no apparent distress she has occasional cough and generalized weakness otherwise she denies any complaints there is no fever or chills no headache or dizziness no chest pain no shortness of breath no nausea or vomiting no abdominal pain no diarrhea no blood in the stools no burning with urination no frequency or urgency and no hematuria Objective - Vital Signs Vital signs: Vital Signs Temp 98.0 F 04/23/20 13:42 Pulse 106 H 04/23/20 13:42 Resp 20 04/23/20 13:42 BP 111/81 04/23/20 13:42 Pulse Ox 99 04/23/20 13:42 Intake & Output 04/22/20 04/23/20 04/23/20 18:59 06:59 18:59 Weight 55.4 kg Other: Voiding Method Toilet Toilet # Voids 4 4 2 # Bowel Movements 1 - Exam In general patient is alert, slightly confused in no apparent distress HEENT head normocephalic and atraumatic Neck is supple no JVD no goiter no lymphadenopathy Chest exam reveals a few scattered rhonchi no wheezing Cardiac exam reveals regular heart sounds no gallops no murmurs Abdomen is soft nontender no organomegaly with normal bowel sounds Extremity exam reveals no edema no cyanosis or clubbing Neurological examination reveals no gross focal deficits - Labs CBC & Chem 7: 04/23/20 05:13 04/23/20 05:13 Labs: Abnormal Lab Results - Last 24 Hours (Table) 04/23/20 04/23/20 Range/Units 05:13 05:13 RBC 3.51 L (3.80-5.40) m/uL Hgb 9.3 L (11.4-16.0) gm/dL Hct 31.8 L (34.0-46.0) % MCHC 29.4 L (31.0-37.0) g/dL RDW 15.9 H (11.5-15.5) % Chloride 110 H (96-109) mmol/L BUN 31.0 H (9.0-27.0) mg/dL Creatinine 1.6 H (0.6-1.5) mg/dL Est GFR (CKD-EPI)AfAm 36.7 L (60.0-200.0) Est GFR (CKD-EPI)NonAf 31.6 L (60.0-200.0) Calcium 8.3 L (8.7-10.3) mg/dL Microbiology - Last 24 Hours (Table) 04/18/20 13:40 Blood Culture - Preliminary Blood No Growth after 120 hours 04/18/20 13:40 Blood Culture - Preliminary Blood No Growth after 120 hours Assessment and Plan Plan: 1. Severe anemia on presentation, possibly acute blood loss anemia patient received 2 units of red blood cell transfusion on presentation , no source of bleeding was established, hemoglobin is stable around 9 will continue to monitor closely 2. Bibasilar infiltrates and pleural effusion maintained on antibiotics, improving 3. Generalized weakness Will consult physical therapy and occupational therapy 4. Covid 19 testing was negative 5. Previous history of peptic ulcer disease 6. Previous history of pancreatitis 7. Previous history of gastrectomy At this time patient is improving will recheck labs and chest x-ray in a.m. Will follow closely
--- NOTE | 2020-04-23 18:36 | XR ---
EXAMINATION TYPE: XR chest 2V DATE OF EXAM: 04/23/2020 COMPARISON: 04/20/2020 HISTORY: Cough TECHNIQUE: 2 views FINDINGS: There is some airspace consolidation lateral to the right pulmonary hilum. There is bluntin g of the costophrenic angles more on the left side. There is mild pulmonary congestion. Heart size is fairly normal. There is old left clavicle fracture. There is osteopenia. IMPRESSION: Right upper lobe pneumonia unchanged. Bilateral pleural effusions larger on the left side . Pleural fluid on the left side increased compared to recent exam. Left lower lobe mild pneumonia un changed.
[2020-04-23] MEDS: LORATADINE 10 MG TAB PO SCH (20:56)
[2020-04-23] MEDS: MIRTAZAPINE 45 MG TABLET PO SCH (22:55)
[2020-04-24] MEDS: HYDROmorphone 0.5 MG/0.5 ML SYRINGE IVP PRN ×4 (02:57→20:13)
[2020-04-24] MEDS: LEVOTHYROXINE 88 MCG TAB PO SCH (05:29)
[2020-04-24 06:58] LABS: Anisocytosis Slight; Basophils # (A) 0.1 k/uL (0-0.2); Basophils % (A) 1 %; Eosinophils # (A) 0.3 k/uL (0-0.7); Eosinophils % (A) 3 %; HCT 30.9 % (34.0-46.0); HGB 9.3 gm/dL (11.4-16.0); Hypochromasia Marked; Lymphocytes # (A) 1.8 k/uL (1.0-4.8); Lymphocytes % (A) 25 %; MCH 27.4 pg (25.0-35.0); MCHC 30.2 g/dL (31.0-37.0); MCV 90.8 fL (80.0-100.0); Mean Platelet Volume 7.5; Monocytes # (A) 0.5 k/uL (0-1.0); Monocytes % (A) 7 %; Neutrophils # (A) 4.6 k/uL (1.3-7.7); Neutrophils % (A) 62 %; Platelet Count 242 k/uL (150-450); Poikilocytosis Slight; RDW 16.5 % (11.5-15.5); WBC 7.3 k/uL (3.8-10.6)
[2020-04-24] MEDS: FOLIC ACID 1 MG TAB PO SCH (08:54)
[2020-04-24] MEDS: PANTOPRAZOLE 40 MG/10 ML VIAL IVP SCH ×2 (08:54→20:13)
[2020-04-24] MEDS: busPIRone HCl 10 MG TAB PO SCH ×2 (08:54→20:14)
[2020-04-24] MEDS: FERROUS SULFATE 325 MG TAB PO SCH (08:54)
[2020-04-24] MEDS: buPROPion XL 300 MG TAB.ER.24H PO SCH (08:54)
[2020-04-24] MEDS: DULoxetine HCL 60 MG CAPSULE.DR PO SCH (08:54)
[2020-04-24] MEDS: hydrOXYzine pamoate 25 MG CAP PO SCH ×3 (08:55→20:16)
[2020-04-24] MEDS: LEVOFLOXACIN 500 MG TAB PO SCH (08:55)
[2020-04-24] MEDS: THIAMINE 100 MG TAB PO SCH (08:55)
[2020-04-24 10:21] LABS: African American GFR (CKD) 39.6 (60.0-200.0); Albumin 3.5 g/dL (3.80-4.90); Albumin/Globulin Ratio 2.69 (1.60-3.17); Anion Gap 8.6 mmol/L (4.00-12.00); BUN/Creat Ratio 25.33 Ratio (12.00-20.00); Calcium 8.9 mg/dL (8.7-10.3); Carbon Dioxide 21.4 mmol/L (21.6-31.8); Globulin 1.3 g/dL (1.6-3.3); Non-African American GFR(CKD) 34.2 (60.0-200.0); Potassium 4.8 mmol/L (3.5-5.5); Total Bilirubin 0.1 mg/dL (0.3-1.2); Total Protein 4.8 g/dL (6.2-8.2)
[2020-04-24] MEDS: HYDROcodone/APAP 5-325MG 1 EACH TAB PO PRN ×3 (10:30→22:32)
--- NOTE | 2020-04-24 14:52 | P.PN ---
Subjective Progress Note Date: 04/24/20 Principal diagnosis: Acute GI blood loss anemia The patient seen today in follow-up 04/21/2020 on the regular medical floor. She is awake and alert in no acute distress. Resting fairly comfortably in bed. She was seen for mild pneumonia in the right upper lobe with no significant pulmonary complaints. Maintaining O2 saturations in the mid 90s on room air. She's afebrile. Hemodynamically stable. CoVID 19 testing was negative. She was found to be quite anemic and received 2 units of packed red blood cells this admission. EGD revealed no active bleeding. Blood cultures reveal no growth. White count 7.6. Hemoglobin 8.7. Platelet count 217. Sodium 142. Potassium 4.0. Creatinine 1.5. Presently on IV Protonix. Antibiotics in the form of Levaquin. The patient is seen today 04/22/2020 in follow-up on the regular medical floor. She is currently resting comfortably in bed. Awake and alert in no acute distress. She is maintaining O2 saturation in the 90s on room air. She is however complaining of some shortness of breath. She also had been complaining of abdominal discomfort. A computed tomography scan of the chest abdomen and pelvis performed yesterday revealed bilateral pleural effusions and basilar pulmonary infiltrate/atelectasis. Diffuse subcutaneous edema could be related to anasarca. Minimal intraperitoneal fluid in the right paracolic gutter. Congestive heart failure is suspected. ProBNP 389. She has received 2 units of packed red blood cells this admission. Last hemoglobin 8.7. Blood cultures reveal no growth to date. She remains on antibiotics in the form of Levaquin. On 04/23/2020 patient seen in follow-up on selective care unit, she is resting comfortably in bed, she status post EGD which showed findings of prior ga strectomy with no active bleeding. Patient is status post transfusion 2 units of packed red blood cells, today's hemoglobin is 9.3, she's had no active bleeding, she is tolerating oral intake, no abdominal pain. Looks very comfortable, she denies any shortness of breath, her CTA of the chest abdomen and pelvis showed bilateral pleural effusions and basilar pulmonary infiltrates and atelectasis and patient remains on antibiotics in the form of Levaquin for possibility of pneumonia, she is not complaining of any significant pulmonary symptoms at this time. He is on 2 L of oxygen her pulse ox of 99%, she's been afebrile. No cough, no complete chest pain. Cultures have been negative On 04/24/2020 patient seen in follow-up on medical floor. She is awake and alert, she is on room air, she reports feeling mildly short of breath with exertion, reports little nasal drainage, but overall breathing comfortably, she's had no acute events overnight, one sevenths abdomen stable her pulse ox is 98% on room air, no fever or chills, occasional cough, no significant phlegm production or complaints of hemoptysis or chest pain. Today's chest x-ray has been reviewed showing unchanged right upper lobe pneumonia, and bilateral pleural effusions larger on the left side. Clinically patient has remained stable, and patient has been on Levaquin for antibiotic coverage, ultra data has been reviewed and has shown no growth. His labs have been reviewed, renal profile has significantly improved, today's hemoglobin is 9.3, white count is 7.3 Objective - Vital Signs Vital signs: Vital Signs Temp 98.1 F 04/24/20 08:00 Pulse 85 04/24/20 08:00 Resp 18 04/24/20 08:00 BP 147/68 04/24/20 08:00 Pulse Ox 98 04/24/20 08:00 Intake & Output 04/23/20 04/24/20 04/24/20 18:59 06:59 18:59 Intake Total 690 Balance 690 Intake: Oral 690 Other: Voiding Method Toilet # Voids 2 2 - Exam GENERAL EXAM: Alert, very pleasant, 75-year-old white female at 2 L of oxygen pulse ox of 99% comfortable in no apparent distress. HEAD: Normocephalic/atraumatic. EYES: Normal reaction of pupils, equal size. Conjunctiva pink, sclera white. NOSE: Clear with pink turbinates. THROAT: No erythema or exudates. NECK: No masses, no JVD, no thyroid enlargement, no adenopathy. CHEST: No chest wall deformity. Symmetrical expansion. LUNGS: Equal air entry with no crackles, wheeze, rhonchi or dullness. CVS: Regular rate and rhythm, normal S1 and S2, no gallops, no murmurs, no rubs ABDOMEN: Soft, nontender. No hepatosplenomegaly, normal bowel sounds, no gu arding or rigidity. EXTREMITIES: No clubbing, no edema, no cyanosis, 2+ pulses and upper and lower e xtremities. MUSCULOSKELETAL: Muscle strength and tone normal. SPINE: No scoliosis or deformity SKIN: No rashes CENTRAL NERVOUS SYSTEM: Alert and oriented -3. No focal deficits, tone is normal in all 4 extremities. PSYCHIATRIC: Alert and oriented -3. Appropriate affect. Intact judgment and insight. - Labs CBC & Chem 7: 04/24/20 05:30 04/24/20 05:30 Labs: Abnormal Lab Results - Last 24 Hours (Table) 04/24/20 04/24/20 Range/Units 05:30 05:30 RBC 3.40 L (3.80-5.40) m/uL Hgb 9.3 L (11.4-16.0) gm/dL Hct 30.9 L (34.0-46.0) % MCHC 30.2 L (31.0-37.0) g/dL RDW 16.5 H (11.5-15.5) % Chloride 111 H (96-109) mmol/L Carbon Dioxide 21.4 L (21.6-31.8) mmol/L BUN 38.0 H (9.0-27.0) mg/dL Est GFR (CKD-EPI)AfAm 39.6 L (60.0-200.0) Est GFR (CKD-EPI)NonAf 34.2 L (60.0-200.0) BUN/Creatinine Ratio 25.33 H (12.00-20.00) Ratio Total Bilirubin 0.1 L (0.3-1.2) mg/dL AST 47 H (13-35) U/L Alkaline Phosphatase 226 H (41-126) U/L Total Protein 4.8 L (6.2-8.2) g/dL Albumin 3.50 L (3.80-4.90) g/dL Globulin 1.3 L (1.6-3.3) g/dL Microbiology - Last 24 Hours (Table) 04/18/20 13:40 Blood Culture - Preliminary Blood No Growth after 120 hours 04/18/20 13:40 Blood Culture - Preliminary Blood No Growth after 120 hours Assessment and Plan Plan: Assessment: #1. Generalized weakness and fatigue secondary to acute GI blood loss anemia, status post 2 units of packed red blood cell transfusion, EGD showed gastrectomy without active bleeding #2. Mild right upper lobe pneumonia, maintained on Levaquin #3. History of chronic bronchial asthma, currently inactive in stable #4. Left lung nonsmoker #5. History of DVT #6. GERD/reflux #7. History of dementia #8. Severe arthritis #9. Prior history of gastric ulcer #10. Migraine thousand #11. History of pancreatitis #12. History of spinal stenosis #13. Poor overall functional performance Plan: Continue current antibiotics, patient has been stable from pulmonary perspective the last 24 hours, no worsening dyspnea, no cough or congestion, chest x-ray shows stable findings of right upper lobe pneumonia, doubt significant improvement, continue Levaquin, patient is on room air, increase activity as tolerated, encouraged patient to sit up in the chair. I performed a history & physical examination of the patient and discussed their management with my nurse practitioner, Brittany Garcia. I reviewed the nurse practitioner's note and agree with the documented findings and plan of care. Lung sounds are positive for diminished breath sounds.. The findings and the impression was discussed with the patient. I attest to the documentation by the nurse practitioner. Time with Patient: Less than 30
--- NOTE | 2020-04-24 17:57 | P.PN ---
Subjective Progress Note Date: 04/24/20 At this time I am assuming care for this patient, I was away for the last 10 days and [facility] were covering for me during that time. Louise Sutton is a 75-year-old female who presented to [facility] emergency room with a chief complaint of generalized weakness, hemoglobin on presentation was 5.3 patient was admitted to medical floor she was seen by gastroenterology she underwent EGD but no source of bleeding was found, patient had red blood cell transfusion, her hemoglobin has been stable for the last few days. Patient was also found to have bilateral basilar infiltrate suggestive of pneumonia with bilateral pleural effusion she was started on IV antibiotics, p ulmonary consultation was requested. On 04/23/2020 patient was seen and examined on the medical floor she is alert and oriented 3 in no apparent distress she has occasional cough and generalized weakness otherwise she denies any complaints there is no fever or chills no headache or dizziness no chest pain no shortness of breath no nausea or vomiting no abdominal pain no diarrhea no blood in the stools no burning with urination no frequency or urgency and no hematuria On 04/24/2020 patient was seen and examined on the medical floor she is alert and oriented 3 in no apparent distress she is complaining of generalized pain she is complaining of cough and shortness of breath with activity otherwise she denies any complaints there is no fever or chills no headache or dizziness no chest pain no palpitation no nausea or vomiting no abdominal pain no diarrhea no blood in the stools and no urinary symptoms Objective - Vital Signs Vital signs: Vital Signs Temp 98.1 F 04/24/20 08:00 Pulse 85 04/24/20 08:00 Resp 18 04/24/20 08:00 BP 147/68 04/24/20 08:00 Pulse Ox 98 04/24/20 08:00 Intake & Output 04/23/20 04/24/20 04/24/20 18:59 06:59 18:59 Intake Total 690 Balance 690 Intake: Oral 690 Other: Voiding Method Toilet # Voids 2 2 - Exam In general patient is alert, slightly confused in no apparent distress HEENT head normocephalic and atraumatic Neck is supple no JVD no goiter no lymphadenopathy Chest exam reveals a few scattered rhonchi no wheezing Cardiac exam reveals regular heart sounds no gallops no murmurs Abdomen is soft nontender no organomegaly with normal bowel sounds Extremity exam reveals no edema no cyanosis or clubbing Neurological examination reveals no gross focal deficits - Labs CBC & Chem 7: 04/24/20 05:30 04/24/20 05:30 Labs: Abnormal Lab Results - Last 24 Hours (Table) 04/24/20 04/24/20 Range/Units 05:30 05:30 RBC 3.40 L (3.80-5.40) m/uL Hgb 9.3 L (11.4-16.0) gm/dL Hct 30.9 L (34.0-46.0) % MCHC 30.2 L (31.0-37.0) g/dL RDW 16.5 H (11.5-15.5) % Chloride 111 H (96-109) mmol/L Carbon Dioxide 21.4 L (21.6-31.8) mmol/L BUN 38.0 H (9.0-27.0) mg/dL Est GFR (CKD-EPI)AfAm 39.6 L (60.0-200.0) Est GFR (CKD-EPI)NonAf 34.2 L (60.0-200.0) BUN/Creatinine Ratio 25.33 H (12.00-20.00) Ratio Total Bilirubin 0.1 L (0.3-1.2) mg/dL AST 47 H (13-35) U/L Alkaline Phosphatase 226 H (41-126) U/L Total Protein 4.8 L (6.2-8.2) g/dL Albumin 3.50 L (3.80-4.90) g/dL Globulin 1.3 L (1.6-3.3) g/dL Microbiology - Last 24 Hours (Table) 04/18/20 13:40 Blood Culture - Preliminary Blood No Growth after 120 hours 04/18/20 13:40 Blood Culture - Preliminary Blood No Growth after 120 hours Assessment and Plan Plan: 1. Severe anemia on presentation, possibly acute blood loss anemia patient received 2 units of red blood cell transfusion on presentation , no source of bleeding was established, hemoglobin is stable around 9 will continue to monitor closely 2. Bibasilar infiltrates and pleural effusion maintained on antibiotics, improving 3. Generalized weakness Will consult physical therapy and occupational therapy 4. Covid 19 testing was negative 5. Previous history of peptic ulcer disease 6. Previous history of pancreatitis 7. Previous history of gastrectomy At this time patient is improving will recheck labs and chest x-ray in a.m. Will follow closely
[2020-04-24] MEDS: LORATADINE 10 MG TAB PO SCH (20:16)
[2020-04-24] MEDS: MIRTAZAPINE 45 MG TABLET PO SCH (20:16)
[2020-04-25] MEDS: HYDROmorphone 0.5 MG/0.5 ML SYRINGE IVP PRN ×4 (02:22→20:09)
[2020-04-25] MEDS: HYDROcodone/APAP 5-325MG 1 EACH TAB PO PRN ×4 (05:39→23:34)
[2020-04-25] MEDS: LEVOTHYROXINE 88 MCG TAB PO SCH (05:39)
[2020-04-25 06:08] LABS: Anisocytosis Slight; Basophils # (A) 0.1 k/uL (0-0.2); Basophils % (A) 1 %; Eosinophils # (A) 0.3 k/uL (0-0.7); Eosinophils % (A) 4 %; HCT 28.7 % (34.0-46.0); HGB 8.8 gm/dL (11.4-16.0); Hypochromasia Marked; Lymphocytes # (A) 1.7 k/uL (1.0-4.8); Lymphocytes % (A) 22 %; MCH 27.5 pg (25.0-35.0); MCHC 30.7 g/dL (31.0-37.0); MCV 89.4 fL (80.0-100.0); Mean Platelet Volume 7.4; Monocytes # (A) 0.4 k/uL (0-1.0); Monocytes % (A) 6 %; Neutrophils % (A) 66 %; Platelet Count 250 k/uL (150-450); Poikilocytosis Slight; RBC 3.21 m/uL (3.80-5.40); RDW 16.9 % (11.5-15.5); WBC 7.5 k/uL (3.8-10.6)
[2020-04-25] MEDS: FOLIC ACID 1 MG TAB PO SCH (08:08)
[2020-04-25] MEDS: PANTOPRAZOLE 40 MG/10 ML VIAL IVP SCH ×2 (08:08→20:12)
[2020-04-25] MEDS: hydrOXYzine pamoate 25 MG CAP PO SCH ×3 (08:08→20:11)
[2020-04-25] MEDS: buPROPion XL 300 MG TAB.ER.24H PO SCH (08:09)
[2020-04-25] MEDS: FERROUS SULFATE 325 MG TAB PO SCH (08:09)
[2020-04-25] MEDS: DULoxetine HCL 60 MG CAPSULE.DR PO SCH (08:09)
[2020-04-25] MEDS: THIAMINE 100 MG TAB PO SCH (08:09)
[2020-04-25] MEDS: busPIRone HCl 10 MG TAB PO SCH ×2 (08:09→20:11)
[2020-04-25 11:09] LABS: African American GFR (CKD) 34.1 (60.0-200.0); Anion Gap 8.7 mmol/L (4.00-12.00); BUN/Creat Ratio 25.29 Ratio (12.00-20.00); Calcium 8.2 mg/dL (8.7-10.3); Carbon Dioxide 22.3 mmol/L (21.6-31.8); Non-African American GFR(CKD) 29.4 (60.0-200.0); Potassium 4.3 mmol/L (3.5-5.5)
--- NOTE | 2020-04-25 11:54 | P.PN ---
Subjective Progress Note Date: 04/25/20 At this time I am assuming care for this patient, I was away for the last 10 days and [facility] were covering for me during that time. Louise Sutton is a 75-year-old female who presented to [facility] emergency room with a chief complaint of generalized weakness, hemoglobin on presentation was 5.3 patient was admitted to medical floor she was seen by gastroenterology she underwent EGD but no source of bleeding was found, patient had red blood cell transfusion, her hemoglobin has been stable for the last few days. Patient was also found to have bilateral basilar infiltrate suggestive of pneumonia with bilateral pleural effusion she was started on IV antibiotics, p ulmonary consultation was requested. On 04/23/2020 patient was seen and examined on the medical floor she is alert and oriented 3 in no apparent distress she has occasional cough and generalized weakness otherwise she denies any complaints there is no fever or chills no headache or dizziness no chest pain no shortness of breath no nausea or vomiting no abdominal pain no diarrhea no blood in the stools no burning with urination no frequency or urgency and no hematuria On 04/24/2020 patient was seen and examined on the medical floor she is alert and oriented 3 in no apparent distress she is complaining of generalized pain she is complaining of cough and shortness of breath with activity otherwise she denies any complaints there is no fever or chills no headache or dizziness no chest pain no palpitation no nausea or vomiting no abdominal pain no diarrhea no blood in the stools and no urinary symptoms On 04/25/2020 patient is alert and oriented 3. Complains of generalized weakness. Denies any chest pain or shortness breath. Patient denies cough. Patient denies nausea vomiting or diarrhea. Patient denies any urinary burning or frequency. Objective - Vital Signs Vital signs: Vital Signs Temp 97.9 F 04/25/20 07:58 Pulse 82 04/25/20 07:58 Resp 17 04/25/20 07:58 BP 122/75 04/25/20 07:58 Pulse Ox 97 04/25/20 07:58 Intake & Output 04/24/20 04/25/20 04/25/20 18:59 06:59 18:59 Other: Voiding Method Bedside Commode # Voids 2 1 # Bowel Movements 2 - Exam In general patient is alert, slightly confused in no apparent distress HEENT head normocephalic and atraumatic Neck is supple no JVD no goiter no lymphadenopathy Chest exam reveals a few scattered rhonchi no wheezing Cardiac exam reveals regular heart sounds no gallops no murmurs Abdomen is soft nontender no organomegaly with normal bowel sounds Extremity exam reveals no edema no cyanosis or clubbing Neurological examination reveals no gross focal deficits - Labs CBC & Chem 7: 04/25/20 05:27 04/25/20 05:27 Labs: Abnormal Lab Results - Last 24 Hours (Table) 04/25/20 04/25/20 Range/Units 05:27 05:27 RBC 3.21 L (3.80-5.40) m/uL Hgb 8.8 L (11.4-16.0) gm/dL Hct 28.7 L (34.0-46.0) % MCHC 30.7 L (31.0-37.0) g/dL RDW 16.9 H (11.5-15.5) % BUN 43.0 H (9.0-27.0) mg/dL Creatinine 1.7 H (0.6-1.5) mg/dL Est GFR (CKD-EPI)AfAm 34.1 L (60.0-200.0) Est GFR (CKD-EPI)NonAf 29.4 L (60.0-200.0) BUN/Creatinine Ratio 25.29 H (12.00-20.00) Ratio Calcium 8.2 L (8.7-10.3) mg/dL Microbiology - Last 24 Hours (Table) 04/18/20 13:40 Blood Culture - Final Blood No Growth after 144 hours 04/18/20 13:40 Blood Culture - Final Blood No Growth after 144 hours Assessment and Plan Plan: 1. Severe anemia on presentation, possibly acute blood loss anemia patient received 2 units of red blood cell transfusion on presentation. Status post EGD hgb 8.8 on 04/25/2020 2. Bibasilar infiltrates and pleural effusion maintained on antibiotics. Maintained on Levaquin. Pulmonary services are following 3. Generalized weakness Will consult physical therapy and occupational therapy 4. Covid 19 testing was negative 5. Previous history of peptic ulcer disease 6. Previous history of pancreatitis 7. Previous history of gastrectomy Chest x-ray ordered for 04/26/2020 Levaquin for antibiotic PT OT following Time with Patient: Greater than 30
--- NOTE | 2020-04-25 13:47 | P.PN ---
Subjective Progress Note Date: 04/25/20 Principal diagnosis: Acute GI blood loss anemia The patient seen today in follow-up 04/21/2020 on the regular medical floor. She is awake and alert in no acute distress. Resting fairly comfortably in bed. She was seen for mild pneumonia in the right upper lobe with no significant pulmonary complaints. Maintaining O2 saturations in the mid 90s on room air. She's afebrile. Hemodynamically stable. CoVID 19 testing was negative. She was found to be quite anemic and received 2 units of packed red blood cells this admission. EGD revealed no active bleeding. Blood cultures reveal no growth. White count 7.6. Hemoglobin 8.7. Platelet count 217. Sodium 142. Potassium 4.0. Creatinine 1.5. Presently on IV Protonix. Antibiotics in the form of Levaquin. The patient is seen today 04/22/2020 in follow-up on the regular medical floor. She is currently resting comfortably in bed. Awake and alert in no acute distress. She is maintaining O2 saturation in the 90s on room air. She is however complaining of some shortness of breath. She also had been complaining of abdominal discomfort. A computed tomography scan of the chest abdomen and pelvis performed yesterday revealed bilateral pleural effusions and basilar pulmonary infiltrate/atelectasis. Diffuse subcutaneous edema could be related to anasarca. Minimal intraperitoneal fluid in the right paracolic gutter. Congestive heart failure is suspected. ProBNP 389. She has received 2 units of packed red blood cells this admission. Last hemoglobin 8.7. Blood cultures reveal no growth to date. She remains on antibiotics in the form of Levaquin. The patient is seen today 04/25/2020 in follow-up on the regular medical floor. She is currently resting comfortably in bed. Awake and alert in no acute distress. Maintaining O2 saturation in the 90s on room air. Currently afebrile. Blood cultures reveal no growth. She is status post 2 units of packed red blood cells this admission. Current hemoglobin 8.8. White count 7.5. Sodium 140. Potassium 4.3. Creatinine 1.7. Remains on antibiotics in the form of Levaquin. Objective - Vital Signs Vital signs: Vital Signs Temp 97.9 F 04/25/20 07:58 Pulse 82 04/25/20 07:58 Resp 17 04/25/20 07:58 BP 122/75 04/25/20 07:58 Pulse Ox 97 04/25/20 07:58 Intake & Output 04/24/20 04/25/20 04/25/20 18:59 06:59 18:59 Other: Voiding Method Bedside Commode # Voids 2 1 # Bowel Movements 2 - Exam On physical examination, a very pleasant 75-year-old female patient, on room air, patient appears comfortable in no apparent distress. HEAD: Normocephalic, atraumatic. EYES: No scleral icterus. No conjunctival injection. MOUTH: No lesions, tongue midline. NECK: Trachea midline, no gross abnormalities. CHEST: Bilateral scattered rhonchi more so on the right upper lung HEART: Regular rate and rhythm. ABDOMEN: Soft, thin and nontender. Bowel sounds are positive. No organomegaly. No guarding or rigidity. EXTREMITIES: No pedal edema. SKIN: No rashes, no jaundice. NEUROLOGIC: Alert and oriented x3. No focal deficits. - Labs CBC & Chem 7: 04/25/20 05:27 04/25/20 05:27 Labs: Abnormal Lab Results - Last 24 Hours (Table) 04/25/20 04/25/20 Range/Units 05:27 05:27 RBC 3.21 L (3.80-5.40) m/uL Hgb 8.8 L (11.4-16.0) gm/dL Hct 28.7 L (34.0-46.0) % MCHC 30.7 L (31.0-37.0) g/dL RDW 16.9 H (11.5-15.5) % BUN 43.0 H (9.0-27.0) mg/dL Creatinine 1.7 H (0.6-1.5) mg/dL Est GFR (CKD-EPI)AfAm 34.1 L (60.0-200.0) Est GFR (CKD-EPI)NonAf 29.4 L (60.0-200.0) BUN/Creatinine Ratio 25.29 H (12.00-20.00) Ratio Calcium 8.2 L (8.7-10.3) mg/dL Microbiology - Last 24 Hours (Table) 04/18/20 13:40 Blood Culture - Final Blood No Growth after 144 hours 04/18/20 13:40 Blood Culture - Final Blood No Growth after 144 hours Assessment and Plan Assessment: 1 Generalized weakness and fatigue secondary to acute GI blood loss. Status post 2 units of packed red blood cells. EGD was nondiagnostic with no active bleeding. Hemoglobin 8.8. 2 Mild right upper lobe pneumonia improving on x-ray. No symptoms clinically. On room air 3 History of chronic bronchial asthma, currently inactive and stable 4 Lifelong nonsmoker 5 History of DVT 6 Gastroesophageal reflux disease 7 History of dementia 8 Severe arthritis 9 Prior history of gastric ulcer 10 Migraine cephalgia 11 History of pancreatitis 12 History of spinal stenosis 13 Poor overall functional performance based on the above-mentioned multiple comorbidities Plan: The patient was seen and evaluated by Dr. Hernandez Currently stable from the pulmonary standpoint, on room air Chest x-ray in a.m. Complete a course of Levaquin We will continue to follow I, the cosigning physician, performed a history & physical examination of the patient. Lungs sounds with few scattered rhonchi more so on the right. Maintaining good O2 saturations in the 90s on room air. I discussed the assessment and plan of care with my nurse practitioner, Leyla Grace. I attest to the above note as dictated by her.
[2020-04-25] MEDS: LORATADINE 10 MG TAB PO SCH (20:11)
[2020-04-25] MEDS: MIRTAZAPINE 45 MG TABLET PO SCH (20:12)
[2020-04-26] MEDS: HYDROmorphone 0.5 MG/0.5 ML SYRINGE IVP PRN ×5 (02:19→21:12)
[2020-04-26] MEDS: HYDROcodone/APAP 5-325MG 1 EACH TAB PO PRN ×3 (05:18→18:00)
[2020-04-26] MEDS: LEVOTHYROXINE 88 MCG TAB PO SCH (05:19)
[2020-04-26 06:16] LABS: Anisocytosis Slight; Basophils # (A) 0.1 k/uL (0-0.2); Basophils % (A) 1 %; Eosinophils # (A) 0.3 k/uL (0-0.7); Eosinophils % (A) 4 %; HGB 8.8 gm/dL (11.4-16.0); Hypochromasia Marked; Lymphocytes # (A) 1.8 k/uL (1.0-4.8); Lymphocytes % (A) 26 %; MCH 27.9 pg (25.0-35.0); MCHC 31.3 g/dL (31.0-37.0); MCV 88.9 fL (80.0-100.0); Mean Platelet Volume 7.5; Monocytes # (A) 0.4 k/uL (0-1.0); Monocytes % (A) 6 %; Neutrophils # (A) 4.2 k/uL (1.3-7.7); Neutrophils % (A) 62 %; Platelet Count 243 k/uL (150-450); Poikilocytosis Slight; RBC 3.15 m/uL (3.80-5.40); RDW 17.4 % (11.5-15.5); WBC 6.9 k/uL (3.8-10.6)
[2020-04-26 06:56] LABS: ALT 41 U/L (4-34); AST 52 U/L (14-36); African American GFR (CKD) 43 (>60 ml/min/1.73 sqM); Albumin 2.7 g/dL (3.5-5.0); Albumin/Globulin Ratio 1.2; Alkaline Phosphatase 197 U/L (38-126); Anion Gap 5 mmol/L; Blood Urea Nitrogen 38 mg/dL (7-17); Calcium 8.7 mg/dL (8.4-10.2); Carbon Dioxide 23 mmol/L (22-30); Chloride 110 mmol/L (98-107); Globulin 2.2 g/dL; Glucose 88 mg/dL (74-99); Non-African American GFR(CKD) 37 (>60 ml/min/1.73 sqM); Potassium 4.2 mmol/L (3.5-5.1); Sodium 138 mmol/L (137-145); Total Bilirubin 0.3 mg/dL (0.2-1.3); Total Protein 4.9 g/dL (6.3-8.2)
[2020-04-26] MEDS: DULoxetine HCL 60 MG CAPSULE.DR PO SCH (08:28)
[2020-04-26] MEDS: FERROUS SULFATE 325 MG TAB PO SCH (08:28)
[2020-04-26] MEDS: busPIRone HCl 10 MG TAB PO SCH ×2 (08:28→20:06)
[2020-04-26] MEDS: THIAMINE 100 MG TAB PO SCH (08:28)
[2020-04-26] MEDS: LEVOFLOXACIN 500 MG TAB PO SCH (08:28)
[2020-04-26] MEDS: PANTOPRAZOLE 40 MG/10 ML VIAL IVP SCH ×2 (08:28→20:07)
[2020-04-26] MEDS: FOLIC ACID 1 MG TAB PO SCH (08:28)
[2020-04-26] MEDS: hydrOXYzine pamoate 25 MG CAP PO SCH ×3 (08:29→22:20)
[2020-04-26] MEDS: buPROPion XL 300 MG TAB.ER.24H PO SCH (08:29)
--- NOTE | 2020-04-26 08:40 | XR ---
EXAMINATION TYPE: XR chest 2V DATE OF EXAM: 04/26/2020 COMPARISON: 04/23/2020 HISTORY: 75-year-old female shortness of breath, follow-up pneumonia TECHNIQUE: PA and lateral views FINDINGS: Heart normal size. Aorta and pulmonary vasculature within normal limits. Continued right upper lobe c onsolidation as well as a small left pleural effusion with left basilar opacity. The right upper lobe consolidation contains small air lucency. Old healed fracture deformity left mid clavicular shaft. IMPRESSION: 1. Continued right upper lobe pneumonia. There is a round air lucency within the consolidation sugges ting developing cavitary change. 2. Continued small left pleural effusion with adjacent atelectasis and/or consolidation.
--- NOTE | 2020-04-26 15:33 | P.PN ---
Subjective Progress Note Date: 04/26/20 Principal diagnosis: Acute GI blood loss anemia The patient seen today in follow-up 04/21/2020 on the regular medical floor. She is awake and alert in no acute distress. Resting fairly comfortably in bed. She was seen for mild pneumonia in the right upper lobe with no significant pulmonary complaints. Maintaining O2 saturations in the mid 90s on room air. She's afebrile. Hemodynamically stable. CoVID 19 testing was negative. She was found to be quite anemic and received 2 units of packed red blood cells this admission. EGD revealed no active bleeding. Blood cultures reveal no growth. White count 7.6. Hemoglobin 8.7. Platelet count 217. Sodium 142. Potassium 4.0. Creatinine 1.5. Presently on IV Protonix. Antibiotics in the form of Levaquin. The patient is seen today 04/22/2020 in follow-up on the regular medical floor. She is currently resting comfortably in bed. Awake and alert in no acute distress. She is maintaining O2 saturation in the 90s on room air. She is however complaining of some shortness of breath. She also had been complaining of abdominal discomfort. A computed tomography scan of the chest abdomen and pelvis performed yesterday revealed bilateral pleural effusions and basilar pulmonary infiltrate/atelectasis. Diffuse subcutaneous edema could be related to anasarca. Minimal intraperitoneal fluid in the right paracolic gutter. Congestive heart failure is suspected. ProBNP 389. She has received 2 units of packed red blood cells this admission. Last hemoglobin 8.7. Blood cultures reveal no growth to date. She remains on antibiotics in the form of Levaquin. The patient is seen today 04/25/2020 in follow-up on the regular medical floor. She is currently resting comfortably in bed. Awake and alert in no acute distress. Maintaining O2 saturation in the 90s on room air. Currently afebrile. Blood cultures reveal no growth. She is status post 2 units of packed red blood cells this admission. Current hemoglobin 8.8. White count 7.5. Sodium 140. Potassium 4.3. Creatinine 1.7. Remains on antibiotics in the form of Levaquin. The patient is seen today 04/26/2020 in follow-up on the regular medical floor. Continues to maintain good O2 saturations in the upper 90s on room air. She's been afebrile. Hemodynamically stable. Follow-up chest x-ray continues to show a right upper lobe pneumonia around air lucency within the consolidation suggesting a developing cavitary change. Continued small left pleural effusion with adjacent atelectasis. White count 6.9. Hemoglobin 8.8. Sodium 138. P otassium 4.2. Creatinine 1.41. Remains on Levaquin. Objective - Vital Signs Vital signs: Vital Signs Temp 97.9 F 04/26/20 14:00 Pulse 95 04/26/20 14:00 Resp 18 04/26/20 14:00 BP 109/66 04/26/20 14:00 Pulse Ox 99 04/26/20 14:00 Intake & Output 04/25/20 04/26/20 04/26/20 18:59 06:59 18:59 Other: Voiding Method Bedside Commode # Voids 1 1 4 # Bowel Movements 1 - Exam On physical examination, a very pleasant 75-year-old female patient, on room air, patient appears comfortable in no apparent distress. HEAD: Normocephalic, atraumatic. EYES: No scleral icterus. No conjunctival injection. MOUTH: No lesions, tongue midline. NECK: Trachea midline, no gross abnormalities. CHEST: Bilateral scattered rhonchi more so on the right upper lung HEART: Regular rate and rhythm. ABDOMEN: Soft, thin and nontender. Bowel sounds are positive. No organomegaly. No guarding or rigidity. EXTREMITIES: No pedal edema. SKIN: No rashes, no jaundice. NEUROLOGIC: Alert and oriented x3. No focal deficits. - Labs CBC & Chem 7: 04/26/20 05:58 04/26/20 05:58 Labs: Abnormal Lab Results - Last 24 Hours (Table) 04/26/20 04/26/20 Range/Units 05:58 05:58 RBC 3.15 L (3.80-5.40) m/uL Hgb 8.8 L (11.4-16.0) gm/dL Hct 28.0 L (34.0-46.0) % RDW 17.4 H (11.5-15.5) % Chloride 110 H (98-107) mmol/L BUN 38 H (7-17) mg/dL Creatinine 1.41 H (0.52-1.04) mg/dL AST 52 H (14-36) U/L ALT 41 H (4-34) U/L Alkaline Phosphatase 197 H (38-126) U/L Total Protein 4.9 L (6.3-8.2) g/dL Albumin 2.7 L (3.5-5.0) g/dL Assessment and Plan Assessment: 1 Generalized weakness and fatigue secondary to acute GI blood loss. Status post 2 units of packed red blood cells. EGD was nondiagnostic with no active bleeding. Hemoglobin 8.8. 2 Right upper lobe pneumonia, 04/26/2020 x-ray reveals continued right upper lobe pneumonia. There is a round air lucency within the consolidation sugge sting developing cavitary change. Continued small left pleural effusion with adjacent atelectasis. 3 History of chronic bronchial asthma, currently inactive and stable 4 Lifelong nonsmoker 5 History of DVT 6 Gastroesophageal reflux disease 7 History of dementia 8 Severe arthritis 9 Prior history of gastric ulcer 10 Migraine cephalgia 11 History of pancreatitis 12 History of spinal stenosis 13 Poor overall functional performance based on the above-mentioned multiple comorbidities Plan: The patient was seen and evaluated by Dr. Hernandez Chest x-ray and labs reviewed Right upper lobe area of consolidation developing cavitary change Continue Levaquin We will continue to follow I, the cosigning physician, performed a history & physical examination of the patient. Lungs sounds with few scattered rhonchi more so on the right. Maintaining good O2 saturations in the 90s on room air. I discussed the assessment and plan of care with my nurse practitioner, Leyla Grace. I attest to the above note as dictated by her.
--- NOTE | 2020-04-26 18:37 | P.PN ---
Subjective Progress Note Date: 04/26/20 At this time I am assuming care for this patient, I was away for the last 10 days and [facility] were covering for me during that time. Louise Sutton is a 75-year-old female who presented to [facility] emergency room with a chief complaint of generalized weakness, hemoglobin on presentation was 5.3 patient was admitted to medical floor she was seen by gastroenterology she underwent EGD but no source of bleeding was found, patient had red blood cell transfusion, her hemoglobin has been stable for the last few days. Patient was also found to have bilateral basilar infiltrate suggestive of pneumonia with bilateral pleural effusion she was started on IV antibiotics, p ulmonary consultation was requested. On 04/23/2020 patient was seen and examined on the medical floor she is alert and oriented 3 in no apparent distress she has occasional cough and generalized weakness otherwise she denies any complaints there is no fever or chills no headache or dizziness no chest pain no shortness of breath no nausea or vomiting no abdominal pain no diarrhea no blood in the stools no burning with urination no frequency or urgency and no hematuria On 04/24/2020 patient was seen and examined on the medical floor she is alert and oriented 3 in no apparent distress she is complaining of generalized pain she is complaining of cough and shortness of breath with activity otherwise she denies any complaints there is no fever or chills no headache or dizziness no chest pain no palpitation no nausea or vomiting no abdominal pain no diarrhea no blood in the stools and no urinary symptoms On 04/25/2020 patient is alert and oriented 3. Complains of generalized weakness. Denies any chest pain or shortness breath. Patient denies cough. Patient denies nausea vomiting or diarrhea. Patient denies any urinary burning or frequency. On 04/26/2020 patient was seen and examined on the medical floor she is alert and oriented 3 in no apparent distress she is complaining of occasional headache otherwise she denies any complaints there is no fever or chills no dizziness no chest pain no shortness of breath she has occasional cough no palpitation no nausea or vomiting no abdominal pain no diarrhea no blood in the stools no burning with urination no frequency or urgency and no hematuria Objective - Vital Signs Vital signs: Vital Signs Temp 97.6 F 04/26/20 07:20 Pulse 84 04/26/20 07:20 Resp 17 04/26/20 07:20 BP 96/62 04/26/20 07:20 Pulse Ox 98 04/26/20 07:20 Intake & Output 04/25/20 04/26/20 04/26/20 18:59 06:59 18:59 Other: Voiding Method Bedside Commode # Voids 1 1 # Bowel Movements 1 - Exam In general patient is alert, slightly confused in no apparent distress HEENT head normocephalic and atraumatic Neck is supple no JVD no goiter no lymphadenopathy Chest exam reveals a few scattered rhonchi no wheezing Cardiac exam reveals regular heart sounds no gallops no murmurs Abdomen is soft nontender no organomegaly with normal bowel sounds Extremity exam reveals no edema no cyanosis or clubbing Neurological examination reveals no gross focal deficits - Labs CBC & Chem 7: 04/26/20 05:58 04/26/20 05:58 Labs: Abnormal Lab Results - Last 24 Hours (Table) 04/26/20 04/26/20 Range/Units 05:58 05:58 RBC 3.15 L (3.80-5.40) m/uL Hgb 8.8 L (11.4-16.0) gm/dL Hct 28.0 L (34.0-46.0) % RDW 17.4 H (11.5-15.5) % Chloride 110 H (98-107) mmol/L BUN 38 H (7-17) mg/dL Creatinine 1.41 H (0.52-1.04) mg/dL AST 52 H (14-36) U/L ALT 41 H (4-34) U/L Alkaline Phosphatase 197 H (38-126) U/L Total Protein 4.9 L (6.3-8.2) g/dL Albumin 2.7 L (3.5-5.0) g/dL Assessment and Plan Plan: 1. Severe anemia on presentation, possibly acute blood loss anemia patient received 2 units of red blood cell transfusion on presentation. Status post EGD hgb 8.8 on 04/25/2020 2. Bibasilar infiltrates and pleural effusion maintained on antibiotics. Maintained on Levaquin. Pulmonary services are following 3. Generalized weakness Will consult physical therapy and occupational therapy 4. Covid 19 testing was negative 5. Previous history of peptic ulcer disease 6. Previous history of pancreatitis 7. Previous history of gastrectomy Chest x-ray ordered for 04/26/2020 Levlennie for antibiotic PT OT following
[2020-04-26] MEDS: LORATADINE 10 MG TAB PO SCH (20:07)
[2020-04-26] MEDS: MIRTAZAPINE 45 MG TABLET PO SCH (22:20)
[2020-04-27] MEDS: HYDROmorphone 0.5 MG/0.5 ML SYRINGE IVP PRN ×2 (03:27→09:49)
[2020-04-27] MEDS: LEVOTHYROXINE 88 MCG TAB PO SCH (05:40)
[2020-04-27] MEDS: HYDROcodone/APAP 5-325MG 1 EACH TAB PO PRN ×2 (05:42→11:55)
[2020-04-27 06:28] LABS: Anisocytosis Slight; Basophils # (A) 0.1 k/uL (0-0.2); Basophils % (A) 1 %; Eosinophils # (A) 0.2 k/uL (0-0.7); Eosinophils % (A) 4 %; HCT 28.1 % (34.0-46.0); HGB 8.8 gm/dL (11.4-16.0); Hypochromasia Marked; Lymphocytes # (A) 1.7 k/uL (1.0-4.8); Lymphocytes % (A) 29 %; MCH 27.8 pg (25.0-35.0); MCHC 31.2 g/dL (31.0-37.0); MCV 89.1 fL (80.0-100.0); Mean Platelet Volume 7.3; Monocytes # (A) 0.4 k/uL (0-1.0); Monocytes % (A) 7 %; Neutrophils # (A) 3.4 k/uL (1.3-7.7); Neutrophils % (A) 57 %; Platelet Count 280 k/uL (150-450); Poikilocytosis Slight; RBC 3.15 m/uL (3.80-5.40); RDW 17.8 % (11.5-15.5)
[2020-04-27 07:45] VITALS: BP 138/80; PULSE 84; RESP 18; TEMP 98
[2020-04-27] MEDS: PANTOPRAZOLE 40 MG/10 ML VIAL IVP SCH (08:04)
[2020-04-27] MEDS: DULoxetine HCL 60 MG CAPSULE.DR PO SCH (08:04)
[2020-04-27] MEDS: THIAMINE 100 MG TAB PO SCH (08:05)
[2020-04-27] MEDS: FOLIC ACID 1 MG TAB PO SCH (08:05)
[2020-04-27] MEDS: buPROPion XL 300 MG TAB.ER.24H PO SCH (08:05)
[2020-04-27] MEDS: FERROUS SULFATE 325 MG TAB PO SCH (08:05)
[2020-04-27] MEDS: busPIRone HCl 10 MG TAB PO SCH (08:05)
[2020-04-27] MEDS: hydrOXYzine pamoate 25 MG CAP PO SCH (08:05)
[2020-04-27] MEDS ORDERED: BUTALB/APAP/CAFF 50-325-40MG TAB PO PRN (09:18)
[2020-04-27 10:10] LABS: African American GFR (CKD) 36.7 (60.0-200.0); Albumin 3.3 g/dL (3.80-4.90); Albumin/Globulin Ratio 2.54 (1.60-3.17); BUN/Creat Ratio 23.75 Ratio (12.00-20.00); Calcium 8.4 mg/dL (8.7-10.3); Globulin 1.3 g/dL (1.6-3.3); Non-African American GFR(CKD) 31.6 (60.0-200.0); Potassium 4.8 mmol/L (3.5-5.5); Total Bilirubin 0.1 mg/dL (0.3-1.2); Total Protein 4.6 g/dL (6.2-8.2)
--- NOTE | 2020-04-27 12:49 | P.PN ---
Subjective Progress Note Date: 04/27/20 Principal diagnosis: Acute GI blood loss anemia The patient seen today in follow-up 04/21/2020 on the regular medical floor. She is awake and alert in no acute distress. Resting fairly comfortably in bed. She was seen for mild pneumonia in the right upper lobe with no significant pulmonary complaints. Maintaining O2 saturations in the mid 90s on room air. She's afebrile. Hemodynamically stable. CoVID 19 testing was negative. She was found to be quite anemic and received 2 units of packed red blood cells this admission. EGD revealed no active bleeding. Blood cultures reveal no growth. White count 7.6. Hemoglobin 8.7. Platelet count 217. Sodium 142. Potassium 4.0. Creatinine 1.5. Presently on IV Protonix. Antibiotics in the form of Levaquin. The patient is seen today 04/22/2020 in follow-up on the regular medical floor. She is currently resting comfortably in bed. Awake and alert in no acute distress. She is maintaining O2 saturation in the 90s on room air. She is however complaining of some shortness of breath. She also had been complaining of abdominal discomfort. A computed tomography scan of the chest abdomen and pelvis performed yesterday revealed bilateral pleural effusions and basilar pulmonary infiltrate/atelectasis. Diffuse subcutaneous edema could be related to anasarca. Minimal intraperitoneal fluid in the right paracolic gutter. Congestive heart failure is suspected. ProBNP 389. She has received 2 units of packed red blood cells this admission. Last hemoglobin 8.7. Blood cultures reveal no growth to date. She remains on antibiotics in the form of Levaquin. The patient is seen today 04/25/2020 in follow-up on the regular medical floor. She is currently resting comfortably in bed. Awake and alert in no acute distress. Maintaining O2 saturation in the 90s on room air. Currently afebrile. Blood cultures reveal no growth. She is status post 2 units of packed red blood cells this admission. Current hemoglobin 8.8. White count 7.5. Sodium 140. Potassium 4.3. Creatinine 1.7. Remains on antibiotics in the form of Levaquin. The patient is seen today 04/26/2020 in follow-up on the regular medical floor. Continues to maintain good O2 saturations in the upper 90s on room air. She's been afebrile. Hemodynamically stable. Follow-up chest x-ray continues to show a right upper lobe pneumonia around air lucency within the consolidation suggesting a developing cavitary change. Continued small left pleural effusion with adjacent atelectasis. White count 6.9. Hemoglobin 8.8. Sodium 138. P otassium 4.2. Creatinine 1.41. Remains on Levaquin. The patient is seen today 04/27/2020 followed on the regular medical floor. She remains awake and alert in no acute distress. Resting quite comfortably in bed. Maintaining O2 saturations up to 99% on room air. Afebrile. Hemodynamically stable. Blood culture reveals no growth. White count 6.0. Hemoglobin 8.8. Sodium 142. Potassium 4.8. Creatinine 1.6. She remains on Levaquin. Objective - Vital Signs Vital signs: Vital Signs Temp 98.0 F 04/27/20 07:44 Pulse 84 04/27/20 07:44 Resp 18 04/27/20 07:44 BP 138/80 04/27/20 07:44 Pulse Ox 99 04/27/20 07:44 Intake & Output 04/26/20 04/27/20 04/27/20 18:59 06:59 18:59 Intake Total 100 Balance 100 Intake: Oral 100 Other: Voiding Method Bedside Commode # Voids 4 - Exam Gen. appearance: A very pleasant 75-year-old female patient, on room air, patient appears comfortable in no apparent distress. HEAD: Normocephalic, atraumatic. EYES: No scleral icterus. No conjunctival injection. MOUTH: No lesions, tongue midline. NECK: Trachea midline, no gross abnormalities. CHEST: Bilateral scattered rhonchi more so on the right upper lung HEART: Regular rate and rhythm. ABDOMEN: Soft, thin and nontender. Bowel sounds are positive. No organomegaly. No guarding or rigidity. EXTREMITIES: No pedal edema. SKIN: No rashes, no jaundice. NEUROLOGIC: Alert and oriented x3. No focal deficits. - Labs CBC & Chem 7: 04/27/20 05:53 04/27/20 05:53 Labs: Abnormal Lab Results - Last 24 Hours (Table) 04/27/20 04/27/20 Range/Units 05:53 05:53 RBC 3.15 L (3.80-5.40) m/uL Hgb 8.8 L (11.4-16.0) gm/dL Hct 28.1 L (34.0-46.0) % RDW 17.8 H (11.5-15.5) % Chloride 111 H (96-109) mmol/L BUN 38.0 H (9.0-27.0) mg/dL Creatinine 1.6 H (0.6-1.5) mg/dL Est GFR (CKD-EPI)AfAm 36.7 L (60.0-200.0) Est GFR (CKD-EPI)NonAf 31.6 L (60.0-200.0) BUN/Creatinine Ratio 23.75 H (12.00-20.00) Ratio Calcium 8.4 L (8.7-10.3) mg/dL Total Bilirubin 0.1 L (0.3-1.2) mg/dL AST 44 H (13-35) U/L ALT 46 H (8-44) U/L Alkaline Phosphatase 259 H (41-126) U/L Total Protein 4.6 L (6.2-8.2) g/dL Albumin 3.30 L (3.80-4.90) g/dL Globulin 1.3 L (1.6-3.3) g/dL Assessment and Plan Assessment: 1 Generalized weakness and fatigue secondary to acute GI blood loss. Status post 2 units of packed red blood cells. EGD was nondiagnostic with no active bleeding. Hemoglobin 8.8. 2 Right upper lobe pneumonia, 04/26/2020 x-ray reveals continued right upper lobe pneumonia. There is a round air lucency within the consolidation sugges ting developing cavitary change. Continued small left pleural effusion with adjacent atelectasis. 3 History of chronic bronchial asthma, currently inactive and stable 4 Lifelong nonsmoker 5 History of DVT 6 Gastroesophageal reflux disease 7 History of dementia 8 Severe arthritis 9 Prior history of gastric ulcer 10 Migraine cephalgia 11 History of pancreatitis 12 History of spinal stenosis 13 Poor overall functional performance based on the above-mentioned multiple comorbidities Plan: The patient was seen and evaluated by Dr. Hernandez She is cleared for discharge from the pulmonary standpoint Continue Levaquin for 5 more days Follow up in the office in 1-2 weeks' time I, the cosigning physician, performed a history & physical examination of the patient. Lungs sounds with few scattered rhonchi more so on the right. Maintaining good O2 saturations in the 90s on room air. I discussed the assessment and plan of care with my nurse practitioner, Leyla Grace. I attest to the above note as dictated by her.
--- NOTE | 2020-04-27 13:18 | P.DS ---
Providers Date of admission: 04/18/20 15:04 Expected date of discharge: 04/27/20 Attending physician: Palmer Desir Consults: 04/18/20 20:32 Consult Physician Routine Consulting Provider: Garry Sanchez Consult Reason/Comments: pneumonia Do you want consulting provider notified?: Yes Primary care physician: Ale Eli [facility] Course: Diagnosis on discharge: 1. Severe anemia on presentation, possibly acute blood loss anemia patient received 2 units of red blood cell transfusion on presentation. Status post EGD hgb 8.8 on 04/25/2020 2. Bibasilar infiltrates and pleural effusion maintained on antibiotics. Maintained on Levaquin. Pulmonary services are following, patient was cleared by pulmonary for discharge she was given a prescription for Levaquin 500 mg 1 daily for 5 more days she will be followed by Dr. Hernandez as outpatient. 3. Generalized weakness Will consult physical therapy and occupational therapy 4. Covid 19 testing was negative 5. Previous history of peptic ulcer disease 6. Previous history of pancreatitis 7. Previous history of gastrectomy Hospital course: At this time I am assuming care for this patient, I was away for the last 10 days and [facility] were covering for me during that time. Louise Sutton is a 75-year-old female who presented to [facility] emergency room with a chief complaint of generalized weakness, hemoglobin on presentation was 5.3 patient was admitted to medical floor she was seen by gastroenterology she underwent EGD but no source of bleeding was found, patient had red blood cell transfusion, her hemoglobin has been stable for the last few days. Patient was also found to have bilateral basilar infiltrate suggestive of pneumonia with bilateral pleural effusion she was started on IV antibiotics, pulmonary consultation was requested. On 04/23/2020 patient was seen and examined on the medical floor she is alert and oriented 3 in no apparent distress she has occasional cough and generalized weakness otherwise she denies any complaints there is no fever or chills no headache or dizziness no chest pain no shortness of breath no nausea or vomiting no abdominal pain no diarrhea no blood in the stools no burning with urination no frequency or urgency and no hematuria On 04/24/2020 patient was seen and examined on the medical floor she is alert and oriented 3 in no apparent distress she is complaining of generalized pain she is complaining of cough and shortness of breath with activity otherwise she denies any complaints there is no fever or chills no headache or dizziness no chest pain no palpitation no nausea or vomiting no abdominal pain no diarrhea no blood in the stools and no urinary symptoms On 04/25/2020 patient is alert and oriented 3. Complains of generalized weakness. Denies any chest pain or shortness breath. Patient denies cough. Patient denies nausea vomiting or diarrhea. Patient denies any urinary burning or frequency. On 04/26/2020 patient was seen and examined on the medical floor she is alert and oriented 3 in no apparent distress she is complaining of occasional headache otherwise she denies any complaints there is no fever or chills no dizziness no chest pain no shortness of breath she has occasional cough no palpitation no nausea or vomiting no abdominal pain no diarrhea no blood in the stools no burning with urination no frequency or urgency and no hematuria On 04/27/2020 patient was seen and examined on the medical floor she is alert and oriented 3 in no distress she is complaining of occasional headache and asking for Fioricet otherwise she denies any complaints at this time there is no fever or chills no dizziness no chest pain no shortness of breath no cough no nausea or vomiting no abdominal pain no diarrhea and no urinary symptoms. Patient was evaluated by pulmonary and was cleared for discharge she will be followed by Dr. Hernandez as outpatient please note that on her chest x-ray on 04/26/2020 : There is a round air lucency within the consolidation suggesting developing cavitary change. Continued small left pleural effusion with adjacent atelectasis. Please make sure that patient follows up with pulmonary Plan - Discharge Summary Discharge Rx Participant: Yes New Discharge Prescriptions: New Levofloxacin [Levaquin] 500 mg PO DAILY 5 Days #5 tab Pantoprazole Sodium [Protonix] 40 mg PO BID 30 Days #60 tablet. Continue DULoxetine HCL [Cymbalta] 60 mg PO DAILY fentaNYL 100MCG/HR PATCH [Duragesic 100MCG/HR] 1 patch TRANSDERM Q72H buPROPion HCL [Wellbutrin XL] 300 mg PO DAILY Ferrous Sulfate [Iron (65 MG Elemental)] 650 mg PO DAILY Cyanocobalamin [Vitamin B-12 Injection] 1,000 mcg SQ Q30D Levocetirizine Dihydrochloride [Xyzal] 5 mg PO HS Calcium/Magnesium 250mg/300mg 1 tab PO DAILY calcitrioL [Calcitriol] 1 mcg PO MOWEFR Levothyroxine Sodium [Synthroid] 88 mcg PO DAILY Albuterol Inhaler [Ventolin Hfa Inhaler] 1 puff INHALATION RT-Q6H PRN PRN Reason: Shortness Of Breath busPIRone HCL [Buspar] 30 mg PO BID Mirtazapine [Remeron] 45 mg PO HS dronabinoL [Marinol] 5 mg PO BID #30 cap Cholestyramine (with Sugar) [Cholestyramine Powder] 4 gm PO BID hydrOXYzine pamoate [hydrOXYzine PAMOATE] 25 mg PO TID Ergocalciferol [Vitamin D2 (DRISDOL)] 50,000 unit PO Q28D Thiamine [Vitamin B-1] 100 mg PO DAILY Folic Acid 1 mg PO DAILY Potassium Chloride ER [K-Dur 10] 30 meq PO DAILY Omeprazole [PriLOSEC] 20 mg PO DAILY Furosemide [Lasix] 20 mg PO DAILY HYDROcodone/APAP 5-325MG [Baldwin 5-325] 1 tab PO Q6H PRN PRN Reason: Migraine Headache Discharge Medication List DULoxetine HCL [Cymbalta] 60 mg PO DAILY 09/17/13 [History] fentaNYL 100MCG/HR PATCH [Duragesic 100MCG/HR] 1 patch TRANSDERM Q72H 04/10/15 [History] Cyanocobalamin [Vitamin B-12 Injection] 1,000 mcg SQ Q30D 11/06/15 [History] Ferrous Sulfate [Iron (65 MG Elemental)] 650 mg PO DAILY 11/06/15 [History] buPROPion HCL [Wellbutrin XL] 300 mg PO DAILY 11/06/15 [History] Levocetirizine Dihydrochloride [Xyzal] 5 mg PO HS 05/31/17 [History] Calcium/Magnesium 250mg/300mg 1 tab PO DAILY 06/07/19 [History] Levothyroxine Sodium [Synthroid] 88 mcg PO DAILY 06/07/19 [History] calcitrioL [Calcitriol] 1 mcg PO MOWEFR 06/07/19 [History] Albuterol Inhaler [Ventolin Hfa Inhaler] 1 puff INHALATION RT-Q6H PRN 10/05/19 [History] Mirtazapine [Remeron] 45 mg PO HS 04/14/20 [History] busPIRone HCL [Buspar] 30 mg PO BID 04/14/20 [History] dronabinoL [Marinol] 5 mg PO BID #30 cap 04/14/20 [Rx] Cholestyramine (with Sugar) [Cholestyramine Powder] 4 gm PO BID 04/18/20 [History] Ergocalciferol [Vitamin D2 (DRISDOL)] 50,000 unit PO Q28D 04/18/20 [History] Folic Acid 1 mg PO DAILY 04/18/20 [History] Furosemide [Lasix] 20 mg PO DAILY 04/18/20 [History] HYDROcodone/APAP 5-325MG [Baldwin 5-325] 1 tab PO Q6H PRN 04/18/20 [History] Omeprazole [PriLOSEC] 20 mg PO DAILY 04/18/20 [History] Potassium Chloride ER [K-Dur 10] 30 meq PO DAILY 04/18/20 [History] Thiamine [Vitamin B-1] 100 mg PO DAILY 04/18/20 [History] hydrOXYzine pamoate [hydrOXYzine PAMOATE] 25 mg PO TID 04/18/20 [History] Levofloxacin [Levaquin] 500 mg PO DAILY 5 Days #5 tab 04/27/20 [Rx] Pantoprazole Sodium [Protonix] 40 mg PO BID 30 Days #60 tablet. 04/27/20 [Rx] Follow up Appointment(s)/Referral(s): Ale Eli MD [Primary Care Provider] - 1-2 days Garry Sanchez DO [Doctor of Osteopathic Medicine] - 10 Days [facility], [NON-STAFF] -
== END 2020-04-27 15:25 | disposition home health service (06) | DRG 377 ==
LOC: EC 12:59 → 3SCARD 15:04 → 4SSUR 04-20 20:23
PROVIDERS: ADMIT Internal Medicine; ATTEND Internal Medicine
PROC: 30233N1 Transfusion of Nonautologous Red Blood Cells into Peripheral Vein, Percutaneous Approach (ICD-10-PCS; 2020-04-18)
PROC: 0DJ08ZZ Inspection of Upper Intestinal Tract, Via Natural or Artificial Opening Endoscopic (ICD-10-PCS; principal; 2020-04-19 08:30)
DX: K92.2 Gastrointestinal hemorrhage, unspecified (principal); J18.9 Pneumonia, unspecified organism; E43 Unspecified severe protein-calorie malnutrition; D62 Acute posthemorrhagic anemia; Z68.1 Body mass index [BMI] 19.9 or less, adult; J98.11 Atelectasis; N17.9 Acute kidney failure, unspecified; F11.11 Opioid abuse, in remission; F03.90 Unspecified dementia, unspecified severity, without behavioral disturbance, psychotic disturbance, mood disturbance, and anxiety; N18.30 Chronic kidney disease, stage 3 unspecified; J45.909 Unspecified asthma, uncomplicated; R79.89 Other specified abnormal findings of blood chemistry; Z20.822 Contact with and (suspected) exposure to COVID-19; K21.9 Gastro-esophageal reflux disease without esophagitis; E03.9 Hypothyroidism, unspecified; K59.09 Other constipation; G43.909 Migraine, unspecified, not intractable, without status migrainosus; M48.00 Spinal stenosis, site unspecified; M19.09 Primary osteoarthritis, other specified site; M19.90 Unspecified osteoarthritis, unspecified site; G89.29 Other chronic pain; M79.7 Fibromyalgia; R26.9 Unspecified abnormalities of gait and mobility; F41.0 Panic disorder [episodic paroxysmal anxiety]; F32.9 Major depressive disorder, single episode, unspecified; F41.9 Anxiety disorder, unspecified; Z91.81 History of falling; Z90.49 Acquired absence of other specified parts of digestive tract; Z88.8 Allergy status to other drugs, medicaments and biological substances; Z79.899 Other long term (current) drug therapy; Z79.890 Hormone replacement therapy; Z86.39 Personal history of other endocrine, nutritional and metabolic disease; Z86.718 Personal history of other venous thrombosis and embolism; Z87.11 Personal history of peptic ulcer disease; Z86.73 Personal history of transient ischemic attack (TIA), and cerebral infarction without residual deficits; Z82.49 Family history of ischemic heart disease and other diseases of the circulatory system; Z80.51 Family history of malignant neoplasm of kidney; Z80.41 Family history of malignant neoplasm of ovary
CPT/HCPCS: 36415; 36430; 43235; 71045; 71046; 71250; 74176; 78580; 80048; 80053; 81003; 82272; 82607; 82728; 82746; 83540; 83550; 83605; 83615; 83735; 83880; 84145; 84466; 84484; 85025; 85045; 85379; 85610; 85730; 86140; 86850; 86900; 86901; 86920; 87040; 87502; 93005; 94760; 96361; 96365; 96375; 99285

== ENCOUNTER 2020-06-30 11:47 | Inpatient (IN) | payer MEDICARE, OTHER ==
--- NOTE | 2020-06-30 12:17 | ED ---
General Adult HPI - General Chief complaint: Shortness of Breath Stated complaint: SOB Time Seen by Provider: 06/30/20 12:02 Source: patient Mode of arrival: ambulatory Limitations: no limitations - History of Present Illness Initial comments: Dictation was produced using [employer]oc[employer] dictation software. please excuse any grammatical, word or spelling errors. This patient was cared for during a federal and state declared state of emergency secondary to Covid 19 Chief Complaint: 75-year-old female with past medical history of asthma, memory impairment, stomach ulcers presents to the emergency department for cough and chest pain History of Present Illness: Any 5-year-old female she states that over the last 3-4 days she's been having a worsening productive cough. She states her sputum is green. Patient denies any constitutional symptoms. She does report that she does have sharp chest pain to the left lower anterior chest that is worse with deep inspiration. She denies any lower extremity symptoms. She denies any history of DVT, PE or thromboembolism's. She has never been on anticoagulation medications except when admitted to the hospital. Patient recently admitted to the hospital for pneumonia and anemia. She states she feels some congestion in her face. Denies any sore throat or runny nose. No obvious Covid 19 exposures. The ROS documented in this emergency department record has been reviewed and confirmed by me. Those systems with pertinent positive or negative responses have been documented in the HPI. All other systems are other negative and/or noncontributory. PHYSICAL EXAM: General Impression: Alert and oriented x3, not in acute distress HEENT: Normocephalic atraumatic, extra-ocular movements intact, pupils equal and reactive to light bilaterally, mucous membranes moist. Cardiovascular: Heart regular rate and rhythm Chest: Able to complete full sentences, no retractions, no tachypnea Abdomen: abdomen soft, non-tender, non-distended, no organomegaly Musculoskeletal: Pulses present and equal in all extremities, no peripheral edema Motor: no focal deficits noted Neurological: CN II-XII grossly intact, no focal motor or sensory deficits noted Skin: Intact with no visualized rashes Psych: Normal affect and mood ED course: 75-year-old female presents emergency department for productive cough at all signs upon arrival shows heart rate of 126, rest of vital signs within acceptable limits. Chart review was performed. She was recently evaluated for pulmonary embolism. She had a VQ scan as recently as March 2020 with low probability for PE. She is tachycardic and does have pleurisy however she does not have any lower extremities symptoms and no history of PE. She denies any history of cancer or other risk factors. No recent travel. She is well- appearing and not hypotensive or hypoxic. Patient's clinical presentation unlikely to be PE. EKG interpretation: Ventricular rate 110, sinus tachycardia,. Interval 176, QRS 82, QTc 465. No CO prolongation, no QTC prolongation, no ST or T-wave changes noted. EKG compared to 04/18/2020 showing no changes. Overall, this EKG is unremarkable Laboratory evaluation obtained. Mild leukocytosis of 13.6, coag panel is unremarkable. Metabolic panel shows potassium 3.1, elevated renal markers which appear to be around patient's waxing and waning at baseline. :covid 19 test is negative. Chest x-ray shows interval worsening with 2 small adjacent partially consolidative opacities in the left lower lung zone. Patient given ceftriaxone and azithromycin. Patient be admitted with infectious disease consultation to Dr. Desir. It is agreeable to plan. Patient reevaluated at approximately 1:20 PM she is found to be in stable medical condition. Her heart rate is improved. At this point patient's clinical presentation concerning for community acquired pneumonia she does have significant acidosis that will be monitored. It's unclear where this acidosis is from. - Related Data Home Medications Medication Instructions Recorded Confirmed DULoxetine HCL [Cymbalta] 60 mg PO DAILY 09/17/13 04/18/20 fentaNYL 100MCG/HR PATCH 1 patch TRANSDERM Q72H 04/10/15 04/18/20 [Duragesic 100MCG/HR] Cyanocobalamin [Vitamin B-12 1,000 mcg SQ Q30D 11/06/15 04/18/20 Injection] Ferrous Sulfate [Iron (65 MG 650 mg PO DAILY 11/06/15 04/18/20 Elemental)] buPROPion HCL [Wellbutrin XL] 300 mg PO DAILY 11/06/15 04/18/20 Levocetirizine Dihydrochloride 5 mg PO HS 05/31/17 04/18/20 [Xyzal] Calcium/Magnesium 250mg/300mg 1 tab PO DAILY 06/07/19 04/18/20 Levothyroxine Sodium [Synthroid] 88 mcg PO DAILY 06/07/19 04/18/20 calcitrioL [Calcitriol] 1 mcg PO MOWEFR 06/07/19 04/18/20 Albuterol Inhaler [Ventolin Hfa 1 puff INHALATION RT-Q6H PRN 10/05/19 04/18/20 Inhaler] Mirtazapine [Remeron] 45 mg PO HS 04/14/20 04/18/20 busPIRone HCL [Buspar] 30 mg PO BID 04/14/20 04/18/20 Cholestyramine (with Sugar) 4 gm PO BID 04/18/20 04/18/20 [Cholestyramine Powder] Ergocalciferol [Vitamin D2 50,000 unit PO Q28D 04/18/20 04/18/20 (DRISDOL)] Folic Acid 1 mg PO DAILY 04/18/20 04/18/20 Furosemide [Lasix] 20 mg PO DAILY 04/18/20 04/18/20 HYDROcodone/APAP 5-325MG [[place] 1 tab PO Q6H PRN 04/18/20 04/18/20 5-325] Omeprazole [PriLOSEC] 20 mg PO DAILY 04/18/20 04/18/20 Potassium Chloride ER [K-Dur 10] 30 meq PO DAILY 04/18/20 04/18/20 Thiamine [Vitamin B-1] 100 mg PO DAILY 04/18/20 04/18/20 hydrOXYzine pamoate [hydrOXYzine 25 mg PO TID 04/18/20 04/18/20 PAMOATE] Previous Rx's Medication Instructions Recorded dronabinoL [Marinol] 5 mg PO BID #30 cap 04/14/20 Levofloxacin [Levaquin] 500 mg PO DAILY 5 Days #5 tab 04/27/20 Pantoprazole Sodium [Protonix] 40 mg PO BID 30 Days #60 tablet. 04/27/20 Allergies Allergy/AdvReac Type Severity Reaction Status Date / Time denosumab [From Prolia] Allergy SEVERE Verified 06/30/20 11:58 CALCIUM LOSS DUST Allergy Itching Uncoded 06/30/20 11:58 MOLDS Allergy Itching Uncoded 06/30/20 11:58 Review of Systems ROS Statement: Those systems with pertinent positive or pertinent negative responses have been documented in the HPI. ROS Other: All systems not noted in ROS Statement are negative. 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 Fell in May 2019- FX HIP-LAID ON FLOOR FOR 3 DAYS hit back of head-STATES HAS SHORT TERM MEMORY PROBLEMS History of Any Multi-Drug Resistant Organisms: None Reported Past Surgical History: Back Surgery, Bowel Resection Additional Past Surgical History / Comment(s): LOWER BACK SURGERY lamenectomy/discetomy then had a revison of that sx. 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, nasal sx d/t broken nose, colonoscopy/egd, PAIN CLINIC PROCEDURES Past Anesthesia/Blood Transfusion Reactions: No Reported Reaction Additional Past Anesthesia/Blood Transfusion Reaction / Comment(s): PT RECIEVED BLOOD TRANSFUSIONS AFTER STOMACH SURGERY Past Psychological History: Anxiety, Depression, Panic Disorder Smoking Status: Never smoker Past Alcohol Use History: None Reported Past Drug Use History: None Reported - Past Family History Father Family Medical History: Cancer, Coronary Artery Disease (CAD) Additional Family Medical History / Comment(s): FATHER HAD BLADDER AND KIDNEY CANCER. FATHER HAD TB WHEN HE WAS A CHILD .FATHER AT AGE 87. Mother Family Medical History: Cancer Additional Family Medical History / Comment(s): MOTHER AT AGE 58 OF OVARIAN CANCER. General Exam Limitations: no limitations Course Vital Signs 06/30/20 06/30/20 11:53 13:17 Temperature 98.2 F Pulse Rate 126 H 95 Respiratory 20 18 Rate Blood Pressure 155/93 145/81 O2 Sat by Pulse 97 97 Oximetry Medical Decision Making - Lab Data Result diagrams: 06/30/20 12:28 06/30/20 12:28 Lab Results 06/30/20 06/30/20 06/30/20 Range/Units 12:27 12:28 12:28 WBC 13.6 H (3.8-10.6) k/uL RBC 4.36 (3.80-5.40) m/uL Hgb 12.2 D (11.4-16.0) gm/dL Hct 39.3 (34.0-46.0) % MCV 90.2 (80.0-100.0) fL MCH 28.1 (25.0-35.0) pg MCHC 31.1 (31.0-37.0) g/dL RDW 19.9 H (11.5-15.5) % Plt Count 531 H (150-450) k/uL MPV 6.9 Neutrophils % 84 % Lymphocytes % 8 % Monocytes % 4 % Eosinophils % 2 % Basophils % 1 % Neutrophils # 11.4 H (1.3-7.7) k/uL Lymphocytes # 1.1 (1.0-4.8) k/uL Monocytes # 0.6 (0-1.0) k/uL Eosinophils # 0.3 (0-0.7) k/uL Basophils # 0.1 (0-0.2) k/uL Hypochromasia Moderate Poikilocytosis Slight Anisocytosis Slight PT 9.6 (9.0-12.0) sec INR 0.9 (<1.2) APTT 25.1 (22.0-30.0) sec Sodium (137-145) mmol/L Potassium (3.5-5.1) mmol/L Chloride (98-107) mmol/L Carbon Dioxide (22-30) mmol/L Anion Gap mmol/L BUN (7-17) mg/dL Creatinine (0.52-1.04) mg/dL Est GFR (CKD-EPI)AfAm (>60 ml/min/1.73 sqM) Est GFR (CKD-EPI)NonAf (>60 ml/min/1.73 sqM) Glucose (74-99) mg/dL Plasma Lactic Acid Jonah (0.7-2.0) mmol/L Calcium (8.4-10.2) mg/dL Magnesium (1.6-2.3) mg/dL Total Bilirubin (0.2-1.3) mg/dL AST (14-36) U/L ALT (4-34) U/L Alkaline Phosphatase (38-126) U/L Troponin I (0.000-0.034) ng/mL Total Protein (6.3-8.2) g/dL Albumin (3.5-5.0) g/dL Coronavirus (PCR) Not Detected (Not Detectd) 06/30/20 06/30/2021 Range/Units 12:28 12:28 12:28 WBC (3.8-10.6) k/uL RBC (3.80-5.40) m/uL Hgb (11.4-16.0) gm/dL Hct (34.0-46.0) % MCV (80.0-100.0) fL MCH (25.0-35.0) pg MCHC (31.0-37.0) g/dL RDW (11.5-15.5) % Plt Count (150-450) k/uL MPV Neutrophils % % Lymphocytes % % Monocytes % % Eosinophils % % Basophils % % Neutrophils # (1.3-7.7) k/uL Lymphocytes # (1.0-4.8) k/uL Monocytes # (0-1.0) k/uL Eosinophils # (0-0.7) k/uL Basophils # (0-0.2) k/uL Hypochromasia Poikilocytosis Anisocytosis PT (9.0-12.0) sec INR (<1.2) APTT (22.0-30.0) sec Sodium 141 (137-145) mmol/L Potassium 3.1 L (3.5-5.1) mmol/L Chloride 114 H (98-107) mmol/L Carbon Dioxide 12 L (22-30) mmol/L Anion Gap 15 mmol/L BUN 34 H (7-17) mg/dL Creatinine 1.94 H (0.52-1.04) mg/dL Est GFR (CKD-EPI)AfAm 29 (>60 ml/min/1.73 sqM) Est GFR (CKD-EPI)NonAf 25 (>60 ml/min/1.73 sqM) Glucose 123 H (74-99) mg/dL Plasma Lactic Acid Jonah 1.4 (0.7-2.0) mmol/L Calcium 9.0 (8.4-10.2) mg/dL Magnesium 1.9 (1.6-2.3) mg/dL Total Bilirubin 0.4 (0.2-1.3) mg/dL AST 19 (14-36) U/L ALT 12 (4-34) U/L Alkaline Phosphatase 305 H (38-126) U/L Troponin I <0.012 (0.000-0.034) ng/mL Total Protein 6.6 (6.3-8.2) g/dL Albumin 3.7 (3.5-5.0) g/dL Coronavirus (PCR) (Not Detectd) Disposition Clinical Impression: Pneumonia Disposition: ADMITTED IP TO THIS HOSP Condition: Fair Referrals: Ale Eli MD [Primary Care Provider] - 1-2 days Decision Time: 13:22
[2020-06-30 12:49] LABS: INR 0.9 (<1.2); Partial Thromboplastin Time 25.1 sec (22.0-30.0); Prothrombin Time 9.6 sec (9.0-12.0)
[2020-06-30 12:55] LABS: Albumin 3.7 g/dL (3.5-5.0); Magnesium 1.9 mg/dL (1.6-2.3); Potassium 3.1 mmol/L (3.5-5.1); Total Bilirubin 0.4 mg/dL (0.2-1.3); Total Protein 6.6 g/dL (6.3-8.2)
[2020-06-30 13:01] LABS: Anisocytosis Slight; Basophils # (A) 0.1 k/uL (0-0.2); Basophils % (A) 1 %; Eosinophils # (A) 0.3 k/uL (0-0.7); Eosinophils % (A) 2 %; HCT 39.3 % (34.0-46.0); Hypochromasia Moderate; Lymphocytes # (A) 1.1 k/uL (1.0-4.8); Lymphocytes % (A) 8 %; MCH 28.1 pg (25.0-35.0); MCHC 31.1 g/dL (31.0-37.0); MCV 90.2 fL (80.0-100.0); Mean Platelet Volume 6.9; Monocytes # (A) 0.6 k/uL (0-1.0); Monocytes % (A) 4 %; Neutrophils # (A) 11.4 k/uL (1.3-7.7); Neutrophils % (A) 84 %; Platelet Count 531 k/uL (150-450); Poikilocytosis Slight; RBC 4.36 m/uL (3.80-5.40); RDW 19.9 % (11.5-15.5); WBC 13.6 k/uL (3.8-10.6)
[2020-06-30 13:02] LABS: HGB 12.2 gm/dL (11.4-16.0)
--- NOTE | 2020-06-30 13:15 | XR ---
EXAMINATION TYPE: XR chest 1V portable DATE OF EXAM: 06/30/2020 COMPARISON: 04/26/2020 HISTORY: Cough TECHNIQUE: Single frontal view of the chest is obtained. FINDINGS: There are scattered partially consolidative opacities involving the right upper lobe and le ft mid and lower lung zone. The right lung opacity is essentially unchanged compared to the prior sandra dy but the left lung opacities have worsened in the interval. The left pleural effusion seen on the p rior study has either resolved or is markedly reduced. The heart size is normal and the pulmonary vasculature is not congested. The osseous structures are i ntact. IMPRESSION: 1. No change in the right upper lobe consolidative opacities. 2. Interval worsening with 2 small adjacent partially consolidative opacities in the left lower lung zone. 3 reduction or resolution in the left pleural effusion seen on the prior study.
[2020-06-30] MEDS ORDERED: cefTRIAXone IN SWFI 1,000 MG/10 ML SYRINGE IVP STA (13:19)
[2020-06-30] MEDS ORDERED: AZITHROMYCIN 500 MG in SODIUM CHLORIDE 0.9% 250 ML IVPB STA (13:19)
[2020-06-30] MEDS ORDERED: HYDROcodone/APAP 5-325MG 1 EACH TAB PO STA (13:20)
[2020-06-30] MEDS ORDERED: PNEUMONIA PROTOCOL UTILIZED 1 EACH MISC PO PRN (13:22)
[2020-06-30] MEDS ORDERED: Potassium Replacement Protocol 1 EACH MISC MISCELLANE PRN (13:37)
[2020-06-30] MEDS: SODIUM CHLORIDE 0.9% 1,000 ML IV SCH (13:38)
[2020-06-30] MEDS ORDERED: FLUTICASONE 50MCG/SPRAY NASAL 16GM EA NOSTRIL PRN (15:30)
[2020-06-30] MEDS: POTASSIUM CHLORIDE ER 10 MEQ TAB.ER.PRT PO SCH ×2 (16:25→21:59)
[2020-06-30] MEDS: BUTALB/APAP/CAFF 50-325-40MG TAB PO PRN ×2 (16:25→22:00)
[2020-06-30] MEDS: hydrOXYzine pamoate 25 MG CAP PO SCH ×2 (16:25→21:58)
[2020-06-30] MEDS: busPIRone HCl 10 MG TAB PO SCH (19:47)
[2020-06-30] MEDS: HYDROcodone/APAP 5-325MG 1 EACH TAB PO PRN (19:47)
[2020-06-30] MEDS: LORATADINE 10 MG TAB PO SCH (19:48)
[2020-06-30] MEDS: PANTOPRAZOLE 40 MG TABLET PO SCH (19:48)
[2020-06-30] MEDS: CHOLESTYRAMINE (WITH SUGAR) 4 GM PACKET PO SCH (19:48)
[2020-06-30] MEDS: FERROUS SULFATE 325 MG TAB PO SCH (19:48)
[2020-06-30] MEDS: ALBUTEROL NEBULIZED 2.5 MG/3 ML INHALATION PRN (20:48)
[2020-06-30] MEDS: SYMBICORT 160-4.5 MCG INHALER INHALATION SCH (20:48)
[2020-06-30] MEDS: MIRTAZAPINE 45 MG TABLET PO SCH (21:59)
[2020-07-01] MEDS: SODIUM CHLORIDE 0.9% 1,000 ML IV SCH ×3 (00:23→22:59)
[2020-07-01] MEDS: HYDROcodone/APAP 5-325MG 1 EACH TAB PO PRN ×4 (04:39→19:59)
[2020-07-01] MEDS: LEVOTHYROXINE 88 MCG TAB PO SCH (05:45)
[2020-07-01] MEDS: ALBUTEROL NEBULIZED 2.5 MG/3 ML INHALATION PRN (05:46)
[2020-07-01] MEDS: SYMBICORT 160-4.5 MCG INHALER INHALATION SCH ×2 (05:46→20:17)
--- NOTE | 2020-07-01 07:54 | XR ---
EXAMINATION TYPE: XR chest 1V portable DATE OF EXAM: 07/01/2020 COMPARISON: 06/30/2020 HISTORY: Shortness of breath TECHNIQUE: Single frontal view of the chest is obtained. FINDINGS the focal opacity abutting the minor fissure on the right and a small focal opacities in the left mid and lower lung zone are unchanged. There is increasing wedge-shaped opacity in the left ret rocardiac region consistent with developing atelectasis or new pneumonic infiltrate. There is no pneumothorax or pleural effusion. The osseous structures are intact. Heart size is normal. Impression: Stable multifocal areas of consolidative opacities in the right upper lobe and left midlu ng laterally.. There is a new infiltrate in the retrocardiac region on the left. No pneumothorax or p leural effusion.
[2020-07-01] MEDS: busPIRone HCl 10 MG TAB PO SCH ×2 (08:24→19:59)
[2020-07-01] MEDS: hydrOXYzine pamoate 25 MG CAP PO SCH ×3 (08:25→21:47)
[2020-07-01] MEDS: buPROPion XL 300 MG TAB.ER.24H PO SCH (08:25)
[2020-07-01] MEDS: FUROSEMIDE 20 MG TAB PO SCH (08:25)
[2020-07-01] MEDS: FOLIC ACID 1 MG TAB PO SCH (08:25)
[2020-07-01] MEDS: CHOLESTYRAMINE (WITH SUGAR) 4 GM PACKET PO SCH ×3 (08:26→20:00)
[2020-07-01] MEDS: DULoxetine HCL 60 MG CAPSULE.DR PO SCH (08:26)
[2020-07-01] MEDS: PANTOPRAZOLE 40 MG TABLET PO SCH ×2 (08:26→19:59)
[2020-07-01] MEDS: FERROUS SULFATE 325 MG TAB PO SCH ×2 (08:26→19:59)
[2020-07-01] MEDS: POTASSIUM CHLORIDE ER 10 MEQ TAB.ER.PRT PO SCH ×3 (08:26→21:47)
[2020-07-01] MEDS: THIAMINE 100 MG TAB PO SCH (08:26)
[2020-07-01] MEDS ORDERED: NON FORMULARY DRUG (Omeprazole 20 MG Capsule.Dr) PO SCH (09:00)
--- NOTE | 2020-07-01 09:41 | CONS ---
CONSULTATION DATE OF SERVICE: 06/30/2020 REASON FOR CONSULTATION: Pneumonia. HISTORY OF PRESENT ILLNESS: The patient is a 75-year-old female presenting to the hospital with increasing shortness of breath and cough. The patient's symptoms have been going on for about four days before presentation to the hospital. The patient did have a cough which is moderate in intensity with bringing up some greenish sputum. No hemoptysis. The patient was complaining of some left-sided pleuritic chest pain especially with deep breath and coughing, intensity is 5 to 6/10, no radiation. The patient denies having nausea, no vomiting. No abdominal pain or any diarrhea. With these symptoms, the patient has been evaluated by the ER physician. On arrival to the ER, the patient was afebrile. The patient was not hypoxic or need for supplemental oxygen. She did have white count of 13.6 with left shift. Creatinine was 1.94. Liver enzymes are normal: Case PCR came back negative. The patient did have a chest x-ray which did show interval worsening of the left lower lung zone with concern for pneumonia. The patient has been diagnosed with community-acquired pneumonia, started on Rocephin and Zithromax and admitted to the hospital. Infectious Disease was consulted for further management of antibiotic therapy. REVIEW OF SYSTEMS: Positive points have been mentioned in HPI. Rest of systems are negative. PAST MEDICAL HISTORY: Asthma, DVT, gastroesophageal reflux, memory impairment, back surgery, bowel resection, laminectomy, meniscectomy. SOCIAL HISTORY: No history of smoking or drug use. FAMILY HISTORY: Father had history of bladder and kidney cancer and coronary artery disease. Mother had history of ovarian cancer. ALLERGIES: DUST and MOLDS. MEDICATIONS: The patient is currently on Aricept, [place], Zithromax, Rocephin, Wellbutrin, BuSpar, Rocaltrol, Questran, Cymbalta, iron sulfate, folic acid, Lasix, Restoril and Synthroid. PHYSICAL EXAMINATION: Her blood pressure is 129/70 with a pulse of 93, temperature is 97.8. She is 98% on room air. General description is an elderly female lying in bed in no distress. No tachypnea or accessory muscles of respiration use. HEENT: Examination shows no pallor or scleral icterus. Oral mucous membrane is dry. NECK: Trachea is midline. LUNGS: Unlabored breathing, decreased breath sounds in the base, with no wheeze, no crackles. HEART: S1, S2. Regular rate and rhythm. ABDOMEN: Soft, no tenderness. EXTREMITIES: No edema of the feet. LABS: Hemoglobin is 12.2 with white count 13.6 with a left shift. BUN of 34, creatinine 1.94. DIAGNOSTIC IMPRESSION AND PLAN: Patient admitted to the hospital with increased shortness of breath, cough and sputum production with evidence of left lower lobe pneumonia, possible community-acquired. PLAN: 1. We will obtain sputum for Gram stain and culture. 2. Continue the patient on Rocephin and Zithromax. 3. We will follow on clinical condition and culture to further adjust medication if needed. Thank you for this consultation. Will follow this patient along with you. MMODL / IJN: [id number] /
[2020-07-01] MEDS: BUTALB/APAP/CAFF 50-325-40MG TAB PO PRN ×3 (10:02→21:47)
[2020-07-01] MEDS ORDERED: IPRATROPIUM-ALBUTEROL 3 ML NEB INHALATION PRN (10:06)
[2020-07-01] MEDS ORDERED: guaiFENesin 600 MG TABLET.ER PO PRN (10:42)
--- NOTE | 2020-07-01 10:43 | P.HPIM ---
History of Present Illness H&P Date: 07/01/20 Chief Complaint: shortness of breath This is a 75-year-old female patient of Dr. Eli. Patient presented to ER with complaints of shortness of breath. Patient reports that over the past 3-4 days she's been having increase shortness of breath with cough and sputum production. Patient reports that she frequently gets aspiration pneumonia due to stomach issues and frequent aspiration. Patient has a past medical history of asthma, memory impairment, stomach ulcers, DVT and GERD. Chest x-ray completed showing no change to right upper lobe consolidative opacities. In terval worsening with 2 small adjacent partially consolidative opacities in the left lower lung zone. Reduction of the resolution in the left pleural effusion seen on prior study. Patient started on azithromycin and Rocephin. COVID-19 negative. Potassium low at 3.1. Creatinine 1.94 and bun 34 and repeat labs ordered. Consultation placed for pulmonary and infectious disease. At this time patient reports improvement with shortness of breath denies chest pain. Denies nausea vomiting or diarrhea. Denies any urinary burning or frequency. 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 Fell in May 2019- FX HIP-LAID ON FLOOR FOR 3 DAYS hit back of head. States had short term memory problems until admit in March, discovered hemoglobin was low (anemia), when corrected memory has improved. History of Any Multi-Drug Resistant Organisms: None Reported Past Surgical History: Back Surgery, Bowel Resection Additional Past Surgical History / Comment(s): LOWER BACK SURGERY lamenectomy/discetomy then had a revison of that sx. 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 PT IS ABLE TO DRIVE A CAR. 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 Smoking Status: Never smoker Past Alcohol Use History: None Reported Past Drug Use History: None Reported - Past Family History Father Family Medical History: Cancer, Coronary Artery Disease (CAD) Additional Family Medical History / Comment(s): FATHER HAD BLADDER AND KIDNEY CANCER. FATHER HAD TB WHEN HE WAS A CHILD .FATHER AT AGE 87. Mother Family Medical History: Cancer Additional Family Medical History / Comment(s): MOTHER AT AGE 58 OF OVARIAN CANCER. Medications and Allergies Home Medications Medication Instructions Recorded Confirmed Type DULoxetine HCL [Cymbalta] 60 mg PO DAILY 09/17/13 06/30/20 History Ferrous Sulfate [Iron (65 MG 325 mg PO BID 11/06/15 06/30/20 History Elemental)] buPROPion HCL [Wellbutrin XL] 300 mg PO DAILY 11/06/15 06/30/20 History Levocetirizine Dihydrochloride 5 mg PO HS 05/31/17 06/30/20 History [Xyzal] Levothyroxine Sodium [Synthroid] 88 mcg PO DAILY 06/07/19 06/30/20 History calcitrioL [Calcitriol] 1 mcg PO MOWEFR 06/07/19 06/30/20 History Albuterol Inhaler [Ventolin Hfa 1 puff INHALATION RT-Q6H PRN 10/05/19 06/30/20 History Inhaler] busPIRone HCL [Buspar] 30 mg PO BID 04/14/20 06/30/20 History Cholestyramine (with Sugar) 4 gm PO BID 04/18/20 06/30/20 History [Cholestyramine Powder] HYDROcodone/APAP 5-325MG [[place] 1 tab PO Q6H PRN 04/18/20 06/30/20 History 5-325] Omeprazole [PriLOSEC] 20 mg PO DAILY 04/18/20 06/30/20 History Potassium Chloride ER [K-Dur 10] 10 meq PO TID 04/18/20 06/30/20 History Thiamine [Vitamin B-1] 100 mg PO DAILY 04/18/20 06/30/20 History hydrOXYzine pamoate [hydrOXYzine 25 mg PO TID 04/18/20 06/30/20 History PAMOATE] Pantoprazole Sodium [Protonix] 40 mg PO BID 30 Days #60 tablet. 04/27/20 06/30/20 Rx Budesonide/Formoterol Fumarate 2 puff INHALATION RT-BID 06/30/20 06/30/20 History [Symbicort 160-4.5 Mcg Inhaler] Butalb/APAP/Caff 50-325-40Mg 1 tab PO Q4H PRN 06/30/20 06/30/20 History [Fioricet 50-325-40] Fluticasone Nasal [place] [Flonase 1 spray EA NOSTRIL DAILY PRN 06/30/20 06/30/20 History Nasal [place]] Folic Acid 0.8 mg PO DAILY 06/30/20 06/30/20 History Furosemide [Lasix] 20 mg PO DAILY 06/30/20 06/30/20 History Mirtazapine 45 mg PO HS 06/30/20 06/30/20 History SUMAtriptan SUCCINATE [Imitrex] 50 mg PO DAILY PRN 06/30/20 06/30/20 History fentaNYL 75MCG/HR PATCH [Duragesic 1 patch TRANSDERM Q72H 06/30/20 06/30/20 History 75MCG/HR] Allergies Allergy/AdvReac Type Severity Reaction Status Date / Time denosumab [From ProlFrogApps] Allergy SEVERE Verified 06/30/20 14:02 CALCIUM LOSS DUST Allergy Itching Uncoded 06/30/20 11:58 MOLDS Allergy Itching Uncoded 06/30/20 11:58 Physical Exam Vitals: Vital Signs Temp Pulse Pulse Resp BP BP Pulse Ox 07/01/20 07:53 98.2 F 95 16 102/82 97 07/01/20 05:59 80 07/01/20 05:49 80 07/01/20 00:49 97.6 F 106 H 18 144/78 96 06/30/20 21:04 100 06/30/20 21:03 98 06/30/20 20:52 98 06/30/20 19:42 18 06/30/20 18:50 97.8 F 93 16 129/70 98 06/30/20 13:17 95 18 145/81 97 06/30/20 11:53 98.2 F 126 H 20 155/93 97 Intake and Output 06/30/20 07/01/20 07/01/20 21:59 06:59 14:59 Other: Voiding Method # Voids Weight Head normocephalic Neck supple Lungs diminshed bilaterally Heart regular rate and rhythm S1-S2, no rub or gallop Abdomen is soft nontender nondistended positive bowel sounds no hepatosplenomegaly Extremities no edema Neuro alert and orientated to 3 Results CBC & Chem 7: 06/30/20 12:28 06/30/20 12:28 Labs: Abnormal Lab Results - Last 24 Hours (Table) 06/30/20 06/30/20 Range/Units 12:28 12:28 WBC 13.6 H (3.8-10.6) k/uL RDW 19.9 H (11.5-15.5) % Plt Count 531 H (150-450) k/uL Neutrophils # 11.4 H (1.3-7.7) k/uL Potassium 3.1 L (3.5-5.1) mmol/L Chloride 114 H (98-107) mmol/L Carbon Dioxide 12 L (22-30) mmol/L BUN 34 H (7-17) mg/dL Creatinine 1.94 H (0.52-1.04) mg/dL Glucose 123 H (74-99) mg/dL Alkaline Phosphatase 305 H (38-126) U/L Thrombosis Risk Factor Assmnt - Choose All That Apply Any of the Below Risk Factors Present?: Yes Each Factor Represents 1 point: Serious lung disease incl. pneumonia (< 1month) Other Risk Factors: Yes Each Risk Factor Represents 2 Points: Age 61-74 years Each Risk Factor Represents 3 Points: History of DVT/PE Thrombosis Risk Factor Assessment Total Risk Factor Score: 6 Thrombosis Risk Factor Assessment Level: High Risk Assessment and Plan Assessment: 1. Shortness breath secondary to pneumonia. Patient started on azithromycin and Rocephin. Pulmonary and infectious disease consulted. Sputum and blood culture ordered 2. History of peptic ulcer disease 3. History of pancreatitis 4. History of gastrectomy 5. Acute kidney injury. Creatinine 1.94 and bun 34 repeat labs ordered 6. Hypokalemia. Potassium 3.1 replace per protocol repeat labs ordered DVT prophylaxis Lovenox. GI prophylaxis Protonix Zithromax and Rocephin Mucinex added Infectious disease and pulmonary service is consulted Sputum and blood cultures ordered Time with Patient: Greater than 30 (Greater than 60% of the total time spent in counseling and coordination of care)
[2020-07-01] MEDS: IPRATROPIUM-ALBUTEROL 3 ML NEB INHALATION PRN ×3 (10:47→20:17)
[2020-07-01] MEDS ORDERED: AZITHROMYCIN 500 MG TAB PO SCH (12:00)
[2020-07-01] MEDS: SUMAtriptan succinate 50 MG TAB PO PRN (12:44)
[2020-07-01] MEDS: PIPERACILLIN-TAZOBACTAM 3.375 GM in SODIUM CHLORIDE 0.9% 100 ML IVPB SCH (12:48)
--- NOTE | 2020-07-01 15:32 | NM ---
EXAMINATION TYPE: NM pul vent and perfuse DATE OF EXAM: 07/01/2020 COMPARISON: 04/18/2020 HISTORY: Short of breath TECHNIQUE: Utilizing inhalation of 38.6 mCi Tc 99m DTPA aerosol and intravenous injection of 4.6 mCi of Tc 99m MAA, ventilation and perfusion images are acquired post injection in multiple projections. FINDINGS: There are multiple segmental sized matching defects in both lungs. This is more noticeable along the major fissures and right upper lobe. There is ventilation abnormality in the left upper lobe much wor se than the perfusion abnormality. IMPRESSION: Multiple matching defects consistent with severe airway disease. Defects are increased compared to ol d exam. There is intermediate probability of pulmonary embolism.
--- NOTE | 2020-07-01 15:46 | P.CNPUL ---
History of Present Illness Consult date: 07/01/20 Requesting physician: Palmer Desir Reason for consult: dyspnea, abnormal CXR/CT Chief complaint: Shortness of breath, left-sided chest wall pain History of present illness: This is a very pleasant 75-year-old female patient who follows with Dr. goodwin as her primary care provider. She has a history of pancreatitis, migraine cephalgia, constipation, previous bowel resection, previous gastric surgery, osteoarthritis, DVT, dementia, chronic bronchial asthma, GI bleed. She had also been seen for a right upper lobe pneumonia. Some of which appear chronic in nature. His chest x-ray showed near complete resolution. She is quite frail and cachectic. She's had multiple recent admissions to the hospital. She presented here again to the emergency room yesterday with a 3-4 day history of i ncreasing shortness of breath cough and congestion. She's had green productive sputum. She's had some left anterior chest wall pain. She does admit to having problems keeping food down. Difficulty in swallowing at times. Again she has had multiple abdominal surgeries and has dumping syndrome according to the patient. Chest x-ray continues to show a right upper lobe consolidation unchanged compared to previous in April 2020. There is however interval worsening with 2 small adjacent partially consolidated opacities of the left lower lung. White count 13.6. Humulin 12.2. INR 0.9. D-dimer 1.25. Sodium 141. Potassium 3.4. Bicarb 12. Creatinine 1.94. Troponin negative 1. Case virus not detected. She is seen today in consultation on the regular medical floor. She is currently sitting up in bed. Awake and alert in no acute distress. She is maintaining good O2 saturations in the mid 90s on room air. She's afebrile. Hemodynamically stable. She's been initiated on Symbicort, DuoNeb inhalations, Mucinex. Antibiotics in the form of ceftriaxone and azithromycin. Review of Systems REVIEW OF SYSTEMS: CONSTITUTIONAL: Denies any recent significant weight loss or weight gain. EYES: Denies change in vision. EARS, NOSE, MOUTH, THROAT: Denies headaches, denies sore throat. CARDIOVASCULAR: Left sided chest wall pain, no palpitations or syncopal episodes. RESPIRATORY: Positive for shortness of breath, cough, congestion no hemoptysis. GASTROINTESTINAL: Denies change in appetite, denies abdominal pain GENITOURINARY: Denies hematuria, denies infections. MUSKULOSKELETAL: Denies pain, denies swelling. INTEGUMENTARY: Denies rash, denies eczema. NEUROLOGICAL: Denies recent memory loss, no recent seizure activity. PSYCHIATRIC: Denies anxiety, denies depression. HEMATOLOGIC/LYMPHATIC: Denies anemia, denies enlarged lymph nodes. Past Medical History Past Medical History: Asthma, Deep Vein Thrombosis (DVT), GERD/Reflux, Memory Impairment Additional Past Medical History / Comment(s): OA IN NECK,BACK AND BILATERAL ARMS.stomach ulcers, edema,low calcium; migraine headaches, pa ncreatitis,constipation,tia,spinal stenosis(had sx ). Fell in May 2019-FX HIP-LAID ON FLOOR FOR 3 DAYS hit back of head. States had short term memory problems until admit in March, discovered hemoglobin was low (anemia), when corrected memory has improved. History of Any Multi-Drug Resistant Organisms: None Reported Past Surgical History: Back Surgery, Bowel Resection Additional Past Surgical History / Comment(s): LOWER BACK SURGERY lamenectomy/discetomy then had a revison of that sx. 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 PT IS ABLE TO DRIVE A CAR. 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 Smoking Status: Never smoker Past Alcohol Use History: None Reported Past Drug Use History: None Reported - Past Family History Father Family Medical History: Cancer, Coronary Artery Disease (CAD) Additional Family Medical History / Comment(s): FATHER HAD BLADDER AND KIDNEY CANCER. FATHER HAD TB WHEN HE WAS A CHILD .FATHER AT AGE 87. Mother Family Medical History: Cancer Additional Family Medical History / Comment(s): MOTHER AT AGE 58 OF OVARIAN CANCER. Medications and Allergies Home Medications Medication Instructions Recorded Confirmed Type DULoxetine HCL [Cymbalta] 60 mg PO DAILY 09/17/13 06/30/20 History Ferrous Sulfate [Iron (65 MG 325 mg PO BID 11/06/15 06/30/20 History Elemental)] buPROPion HCL [Wellbutrin XL] 300 mg PO DAILY 11/06/15 06/30/20 History Levocetirizine Dihydrochloride 5 mg PO HS 05/31/17 06/30/20 History [Xyzal] Levothyroxine Sodium [Synthroid] 88 mcg PO DAILY 06/07/19 06/30/20 History calcitrioL [Calcitriol] 1 mcg PO MOWEFR 06/07/19 06/30/20 History Albuterol Inhaler [Ventolin Hfa 1 puff INHALATION RT-Q6H PRN 10/05/19 06/30/20 History Inhaler] busPIRone HCL [Buspar] 30 mg PO BID 04/14/20 06/30/20 History Cholestyramine (with Sugar) 4 gm PO BID 04/18/20 06/30/20 History [Cholestyramine Powder] HYDROcodone/APAP 5-325MG [[place] 1 tab PO Q6H PRN 04/18/20 06/30/20 History 5-325] Omeprazole [PriLOSEC] 20 mg PO DAILY 04/18/20 06/30/20 History Potassium Chloride ER [K-Dur 10] 10 meq PO TID 04/18/20 06/30/20 History Thiamine [Vitamin B-1] 100 mg PO DAILY 04/18/20 06/30/20 History hydrOXYzine pamoate [hydrOXYzine 25 mg PO TID 04/18/20 06/30/20 History PAMOATE] Pantoprazole Sodium [Protonix] 40 mg PO BID 30 Days #60 tablet. 04/27/20 06/30/20 Rx Budesonide/Formoterol Fumarate 2 puff INHALATION RT-BID 06/30/20 06/30/20 History [Symbicort 160-4.5 Mcg Inhaler] Butalb/APAP/Caff 50-325-40Mg 1 tab PO Q4H PRN 06/30/20 06/30/20 History [Fioricet 50-325-40] Fluticasone Nasal [place] [Flonase 1 spray EA NOSTRIL DAILY PRN 06/30/20 06/30/20 History Nasal [place]] Folic Acid 0.8 mg PO DAILY 06/30/20 06/30/20 History Furosemide [Lasix] 20 mg PO DAILY 06/30/20 06/30/20 History Mirtazapine 45 mg PO HS 06/30/20 06/30/20 History SUMAtriptan SUCCINATE [Imitrex] 50 mg PO DAILY PRN 06/30/20 06/30/20 History fentaNYL 75MCG/HR PATCH [Duragesic 1 patch TRANSDERM Q72H 06/30/20 06/30/20 History 75MCG/HR] Allergies Allergy/AdvReac Type Severity Reaction Status Date / Time denosumab [From Prolia] Allergy SEVERE Verified 06/30/20 14:02 CALCIUM LOSS DUST Allergy Itching Uncoded 06/30/20 11:58 MOLDS Allergy Itching Uncoded 06/30/20 11:58 Physical Exam Vitals: Vital Signs Temp Pulse Pulse Resp BP Pulse Ox 07/01/20 11:02 94 07/01/20 10:48 96 07/01/20 07:53 98.2 F 95 16 102/82 97 07/01/20 05:59 80 07/01/20 05:49 80 07/01/20 00:49 97.6 F 106 H 18 144/78 96 06/30/20 21:04 100 06/30/20 21:03 98 06/30/20 20:52 98 06/30/20 19:42 18 06/30/20 18:50 97.8 F 93 16 129/70 98 Intake and Output 07/01/20 07/01/20 07/01/20 06:59 14:59 22:59 Other: # Voids GENERAL EXAM: Alert, frail, cachectic 75-year-old female patient, on room air, comfortable in no apparent distress. HEAD: Normocephalic. EYES: Normal reaction of pupils, equal size. NOSE: Clear with pink turbinates. THROAT: No erythema or exudates. NECK: No masses, no JVD. CHEST: No chest wall deformity. LUNGS: Equal air entry with bilateral scattered rhonchi left greater than right. CVS: S1 and S2 normal with no audible murmur, regular rhythm. ABDOMEN: No hepatosplenomegaly, normal bowel sounds, no guarding or rigidity. SPINE: Kyphoscoliosis SKIN: No rashes CENTRAL NERVOUS SYSTEM: No focal deficits, tone is normal in all 4 extremities. EXTREMITIES: There is no peripheral edema. No clubbing, no cyanosis. Peripheral pulses are intact. Results - Laboratory Findings CBC and BMP: 06/30/20 12:28 06/30/20 12:28 PT/INR, D-dimer PT 9.6 sec (9.0-12.0) 06/30/20 12:28 INR 0.9 (<1.2) 06/30/20 12:28 D-Dimer 1.25 mg/L FEU (<0.60) H 07/01/20 11:59 Abnormal lab findings: Abnormal Labs 06/30/20 06/30/20 07/01/20 12:28 12:28 11:59 WBC 13.6 H RDW 19.9 H Plt Count 531 H Neutrophils # 11.4 H D-Dimer 1.25 H Potassium 3.1 L Chloride 114 H Carbon Dioxide 12 L BUN 34 H Creatinine 1.94 H Glucose 123 H Alkaline Phosphatase 305 H - Diagnostic Findings Chest x-ray: image reviewed Assessment and Plan Assessment: 1 Acute left lower lung pneumonia, suspect community-acquired versus aspiration with chronic and ongoing right upper lung opacities. CoVID 19 screen negative. 2 Leukocytosis secondary to above 3 History of chronic bronchial asthma, currently inactive and stable 4 Lifelong nonsmoker 5 History of DVT 6 Recent admission for GI bleed 7 History of dementia 8 Severe arthritis 9 Prior history of gastric ulcer previous multiple abdominal surgeries 10 Migraine cephalgia 11 History of pancreatitis 12 History of spinal stenosis 13 Poor overall functional performance based on the above-mentioned multiple comorbidities Plan: The patient was seen and evaluated by Dr. Hernandez Chest x-ray, previous chest x-ray and CAT scans reviewed Some chronicity to the right upper lobe abnormalities New left lung infiltrates, suspect possible aspiration Change antibiotics to IV Zosyn Continue bronchodilators Obtain d-dimer, if elevated, VQ scan Speech therapy consult, barium swallow We will continue to follow and make further recommendations based on her clinica l status I, the cosigning physician, performed a history & physical examination of the patient. Lungs sounds few scattered rhonchi left greater than right. Maintaining good O2 saturations in the 90s on room air. I discussed the assessment and plan of care with my nurse practitioner, Leyla Grace. I attest to the above consultation as dictated by her. Time with Patient: Greater than 30
[2020-07-01 16:03] LABS: ALT 11 U/L (4-34); AST 17 U/L (14-36); African American GFR (CKD) 37 (>60 ml/min/1.73 sqM); Albumin 3.3 g/dL (3.5-5.0); Albumin/Globulin Ratio 1.3; Alkaline Phosphatase 262 U/L (38-126); Anion Gap 13 mmol/L; Blood Urea Nitrogen 31 mg/dL (7-17); Calcium 8.2 mg/dL (8.4-10.2); Carbon Dioxide 15 mmol/L (22-30); Chloride 114 mmol/L (98-107); Globulin 2.6 g/dL; Glucose 110 mg/dL (74-99); Non-African American GFR(CKD) 32 (>60 ml/min/1.73 sqM); Sodium 142 mmol/L (137-145); Total Bilirubin 0.4 mg/dL (0.2-1.3); Total Protein 5.9 g/dL (6.3-8.2)
[2020-07-01] MEDS ORDERED: Potassium Replacement Protocol 1 EACH MISC MISCELLANE PRN (16:06)
[2020-07-01 16:07] LABS: Potassium 2.7 mmol/L (3.5-5.1)
--- NOTE | 2020-07-01 16:58 | US ---
EXAMINATION TYPE: US venous doppler duplex LE DATE OF EXAM: 07/01/2020 4:47 PM COMPARISON: US CLINICAL HISTORY: rule out DVT. Rule out DVT. Hx DVT. SIDE PERFORMED: Bilateral TECHNIQUE: The lower extremity deep venous system is examined utilizing real time linear array sonog jaguar with graded compression, doppler sonography and color-flow sonography. VESSELS IMAGED: Common Femoral Vein Deep Femoral Vein Greater Saphenous Vein * Femoral Vein Popliteal Vein Small Saphenous Vein * Proximal Calf Veins (* superficial vessels) Right Leg: Color flow is seen in all veins imaged from prox calf veins to CFV/GSV. Young appear thi ck- CFV, GSV, prox, and mid femoral vein do not appear to compress completely. Possible chronic non-o cclusive thrombus? Left Leg: Color flow is seen in all veins imaged from prox calf veins to CFV/GSV. Young appear thic k- CFV, GSV, prox, and mid femoral vein do not appear to compress completely. Possible chronic non-oc clusive thrombus within these vein segments? IMPRESSION: There is some wall thickening of the veins without definite blood clot. This could relate to phlebiti s. No evidence of acute deep vein thrombosis. Chronic deep vein thrombosis not excluded.
[2020-07-01 17:04] LABS: Basophils # (A) 0.08 X 10*3/uL (0.00-0.10); Basophils % (A) 0.5 %; Eosinophils % (A) 2.1 %; HCT 32.3 % (37.2-46.3); HGB 10.5 g/dL (12.0-15.0); Lymphocytes # (A) 1.24 X 10*3/uL (0.90-5.00); Lymphocytes % (A) 8.5 %; MCH 28.4 pg (27.0-32.0); MCHC 32.5 g/dL (32.0-37.0); MCV 87.3 fL (80.0-97.0); Mean Platelet Volume 8.9 fL (9.5-12.2); Monocytes # (A) 1.05 X 10*3/uL (0.20-1.00); Monocytes % (A) 7.2 %; Neutrophils % (A) 80.9 %; Platelet Count 457 X 10*3/uL (140-440); RDW 19.9 % (11.5-14.5); WBC 14.58 X 10*3/uL (4.50-10.00)
[2020-07-01] MEDS: POTASSIUM CHLORIDE ER 20 MEQ TAB.ER PO SCH ×4 (17:13→22:59)
--- NOTE | 2020-07-01 18:45 | PN ---
PROGRESS NOTE DATE OF SERVICE: 07/01/2020 REASON FOR FOLLOWUP: Pneumonia. INTERVAL HISTORY: The patient is currently afebrile. Patient is breathing comfortably on room air. The patient denies having any chest pain, shortness of breath. She did have a cough but not bringing up any sputum. No nausea, no vomiting. No abdominal pain. No diarrhea. PHYSICAL EXAMINATION: Blood pressure 137/80 with a pulse of 86, temperature 97.4. She is 97% on room air. General description: The patient is an elderly female lying in bed in no distress. Respiratory system: Unlabored breathing, decreased breath sounds at bases. No wheeze. Heart S1, S2. Regular rate and rhythm. Abdomen soft, no tenderness. LABS: Hemoglobin is 10.5, white count 14.58, creatinine 1.60, blood culture has been negative so far. DIAGNOSTIC IMPRESSION AND PLAN: Patient admitted to the hospital with pneumonia, possible community-acquired. The patient is currently covered with Zosyn. Try to obtain a sputum to narrow down antibiotics and continue supportive care. MMODL / IJN: [id number] /
[2020-07-01] MEDS: LORATADINE 10 MG TAB PO SCH (19:59)
[2020-07-01] MEDS: MIRTAZAPINE 45 MG TABLET PO SCH (22:59)
[2020-07-02] MEDS: POTASSIUM CHLORIDE ER 20 MEQ TAB.ER PO SCH (00:27)
[2020-07-02] MEDS: PIPERACILLIN-TAZOBACTAM 3.375 GM in SODIUM CHLORIDE 0.9% 100 ML IVPB SCH ×3 (00:27→23:18)
[2020-07-02] MEDS: LEVOTHYROXINE 88 MCG TAB PO SCH (05:55)
[2020-07-02] MEDS: HYDROcodone/APAP 5-325MG 1 EACH TAB PO PRN ×3 (05:55→17:49)
[2020-07-02 06:32] LABS: Anisocytosis Moderate; Basophils # (A) 0.1 k/uL (0-0.2); Basophils % (A) 1 %; Eosinophils # (A) 0.6 k/uL (0-0.7); Eosinophils % (A) 5 %; HCT 33.8 % (34.0-46.0); HGB 10.6 gm/dL (11.4-16.0); Hypochromasia Moderate; Lymphocytes # (A) 1.3 k/uL (1.0-4.8); Lymphocytes % (A) 10 %; MCH 28.6 pg (25.0-35.0); MCHC 31.3 g/dL (31.0-37.0); MCV 91.2 fL (80.0-100.0); Mean Platelet Volume 6.6; Monocytes # (A) 0.6 k/uL (0-1.0); Monocytes % (A) 4 %; Neutrophils # (A) 10.4 k/uL (1.3-7.7); Neutrophils % (A) 80 %; Platelet Count 452 k/uL (150-450); Poikilocytosis Slight; RDW 20.2 % (11.5-15.5)
[2020-07-02 06:59] LABS: ALT 10 U/L (4-34); AST 19 U/L (14-36); African American GFR (CKD) 33 (>60 ml/min/1.73 sqM); Albumin 2.9 g/dL (3.5-5.0); Albumin/Globulin Ratio 1.1; Alkaline Phosphatase 218 U/L (38-126); Anion Gap 10 mmol/L; Blood Urea Nitrogen 26 mg/dL (7-17); Calcium 8.6 mg/dL (8.4-10.2); Carbon Dioxide 13 mmol/L (22-30); Chloride 118 mmol/L (98-107); Globulin 2.6 g/dL; Glucose 99 mg/dL (74-99); Non-African American GFR(CKD) 29 (>60 ml/min/1.73 sqM); Potassium 4.5 mmol/L (3.5-5.1); Sodium 141 mmol/L (137-145); Total Bilirubin 0.4 mg/dL (0.2-1.3); Total Protein 5.5 g/dL (6.3-8.2)
[2020-07-02] MEDS: IPRATROPIUM-ALBUTEROL 3 ML NEB INHALATION PRN ×3 (07:48→15:30)
[2020-07-02] MEDS: SYMBICORT 160-4.5 MCG INHALER INHALATION SCH ×2 (07:48→21:53)
[2020-07-02] MEDS: BUTALB/APAP/CAFF 50-325-40MG TAB PO PRN ×3 (08:07→20:34)
[2020-07-02] MEDS: DULoxetine HCL 60 MG CAPSULE.DR PO SCH (08:08)
[2020-07-02] MEDS: FUROSEMIDE 20 MG TAB PO SCH (08:08)
[2020-07-02] MEDS: THIAMINE 100 MG TAB PO SCH (08:08)
[2020-07-02] MEDS: FOLIC ACID 1 MG TAB PO SCH (08:08)
[2020-07-02] MEDS: FERROUS SULFATE 325 MG TAB PO SCH ×2 (08:08→23:05)
[2020-07-02] MEDS: buPROPion XL 300 MG TAB.ER.24H PO SCH (08:08)
[2020-07-02] MEDS: busPIRone HCl 10 MG TAB PO SCH ×2 (08:08→23:04)
[2020-07-02] MEDS: PANTOPRAZOLE 40 MG TABLET PO SCH ×2 (08:09→23:05)
[2020-07-02] MEDS: POTASSIUM CHLORIDE ER 10 MEQ TAB.ER.PRT PO SCH ×3 (08:09→23:05)
[2020-07-02] MEDS: hydrOXYzine pamoate 25 MG CAP PO SCH ×3 (08:09→23:05)
[2020-07-02] MEDS: SODIUM CHLORIDE 0.9% 1,000 ML IV SCH ×2 (08:09→16:34)
[2020-07-02] MEDS: CHOLESTYRAMINE (WITH SUGAR) 4 GM PACKET PO SCH ×2 (08:10→20:11)
[2020-07-02] MEDS ORDERED: ENOXAPARIN 40 MG/0.4 ML SYRINGE SQ SCH (09:00)
[2020-07-02] MEDS: polyethylene glycoL 3350 17 GM POWD.PACK PO SCH (11:57)
[2020-07-02 13:49] VITALS: BMI 16.5
--- NOTE | 2020-07-02 14:19 | FL ---
EXAMINATION TYPE: FL barium swallow w video DATE OF EXAM: 07/02/2020 CLINICAL HISTORY: 75-year-old female assess for aspiration pneumonia. History of COPD and gastric pro blems. Total fluoroscopy time: 1 minute 34 seconds. Total images: None. Real-time fluoroscopy support was provided to speech pathology. TECHNIQUE: Deglutition study is performed utilizing thin liquid barium, honey and nectar thick liqui d barium, barium thick applesauce, and barium coated cracker. COMPARISON: None. FINDINGS: Degenerative spondylolisthesis is incidentally noted in the cervical spine. The oral and pharyngeal p hases show satisfactory initiation and propagation with all modalities tested. Normal mastication is seen with solid modalities tested. There is transient penetration identified with a thin liquid bar ium. No other penetration or aspiration is identified. No significant pharyngeal residue was apprecia zita. IMPRESSION: Episodes of transient penetration with thin liquid barium. No other penetration or aspiration seen. P lease refer to speech therapist notes for further details if necessary.
--- NOTE | 2020-07-02 16:33 | P.PN ---
Subjective Progress Note Date: 07/02/20 Principal diagnosis: Shortness of breath, left-sided chest wall pain This is a very pleasant 75-year-old female patient who follows with Dr. goodwin as her primary care provider. She has a history of pancreatitis, migraine cephalgia, constipation, previous bowel resection, previous gastric surgery, osteoarthritis, DVT, dementia, chronic bronchial asthma, GI bleed. She had also been seen for a right upper lobe pneumonia. Some of which appear chronic in nature. His chest x-ray showed near complete resolution. She is quite frail and cachectic. She's had multiple recent admissions to the hospital. She presented here again to the emergency room yesterday with a 3-4 day history of increasing shortness of breath cough and congestion. She's had green productive sputum. She's had some left anterior chest wall pain. She does admit to having problems keeping food down. Difficulty in swallowing at times. Again she has had multiple abdominal surgeries and has dumping syndrome according to the patient. Chest x-ray continues to show a right upper lobe consolidation unchanged compared to previous in April 2020. There is however interval worsening with 2 small adjacent partially consolidated opacities of the left lower lung. White count 13.6. Humulin 12.2. INR 0.9. D-dimer 1.25. Sodium 141. Potassium 3.4. Bicarb 12. Creatinine 1.94. Troponin negative 1. Case virus not detected. She is seen today in consultation on the regular medical floor. She is currently sitting up in bed. Awake and alert in no acute distress. She is maintaining good O2 saturations in the mid 90s on room air. She's afebrile. Hemodynamically stable. She's been initiated on Symbicort, DuoNeb inhalations, Mucinex. Antibiotics in the form of ceftriaxone and azithr omycin. On 07/02/2020 patient seen in follow-up on medical floor, she is very comfortable, denies any chest pain, breathing comfortably, she is on room air, and her pulse ox is 97%, she's had no fever or chills, no chest wall discomfort. No cough, been seen by speech therapy and she is going for modified barium swallow today, lower extremity Dopplers were completed showing possible chronic nonocclusive thrombus in the right leg and possible chronic nonocclusive thrombus within the deep veins of the left leg. Her VQ scan was positive for multiple matching defects consistent with severe airway disease, and there was intermediate probability of pulmonary embolism. D-dimer was 1.25. However patient appears to be quite comfortable today, she denies any cough or hemoptysis, she's had no fever or chills, she is maintaining stable O2 saturations on room air. She was tested for COVID 19 and she was found to be negative. Objective - Vital Signs Vital signs: Vital Signs Temp 97.8 F 07/02/20 14:00 Pulse 90 07/02/20 15:42 Resp 16 07/02/20 14:00 BP 108/67 07/02/20 14:00 Pulse Ox 97 07/02/20 14:00 Intake & Output 07/01/20 07/02/20 07/02/20 18:59 06:59 18:59 Output Total 900 Balance -900 Weight 40.823 kg Output: Urine 900 Other: Voiding Method Toilet # Voids 6 - Exam GENERAL EXAM: Alert, very pleasant, 75-year-old white female, on room air, with pulse ox of 97% comfortable in no apparent distress. HEAD: Normocephalic/atraumatic. EYES: Normal reaction of pupils, equal size. Conjunctiva pink, sclera white. NOSE: Clear with pink turbinates. THROAT: No erythema or exudates. NECK: No masses, no JVD, no thyroid enlargement, no adenopathy. CHEST: No chest wall deformity. Symmetrical expansion. LUNGS: Equal air entry with no crackles, wheeze, rhonchi or dullness. CVS: Regular rate and rhythm, normal S1 and S2, no gallops, no murmurs, no rubs ABDOMEN: Soft, nontender. No hepatosplenomegaly, normal bowel sounds, no guarding or rigidity. EXTREMITIES: No clubbing, no edema, no cyanosis, 2+ pulses and upper and lower extremities. MUSCULOSKELETAL: Muscle strength and tone normal. SPINE: No scoliosis or deformity SKIN: No rashes CENTRAL NERVOUS SYSTEM: Alert and oriented -3. No focal deficits, tone is nor mal in all 4 extremities. PSYCHIATRIC: Alert and oriented -3. Appropriate affect. Intact judgment and insight. - Labs CBC & Chem 7: 07/02/20 06:20 07/02/20 06:20 Labs: Abnormal Lab Results - Last 24 Hours (Table) 07/01/20 07/01/20 07/02/20 Range/Units 10:20 19:41 06:20 WBC 14.58 H 13.0 H (4.50-10.00) X 10*3/uL RBC 3.70 L 3.70 L (4.10-5.20) X 10*6/uL Hgb 10.5 L 10.6 L (12.0-15.0) g/dL Hct 32.3 L 33.8 L (37.2-46.3) % RDW 19.9 H 20.2 H (11.5-14.5) % Plt Count 457 H 452 H (140-440) X 10*3/uL MPV 8.9 L (9.5-12.2) fL Immature Gran # 0.11 H (0.00-0.04) X 10*3/uL Neutrophils # 11.80 H 10.4 H (1.80-7.70) X 10*3/uL Monocytes # 1.05 H (0.20-1.00) X 10*3/uL Potassium 2.9 L (3.5-5.1) mmol/L Chloride (98-107) mmol/L Carbon Dioxide (22-30) mmol/L BUN (7-17) mg/dL Creatinine (0.52-1.04) mg/dL Alkaline Phosphatase (38-126) U/L Total Protein (6.3-8.2) g/dL Albumin (3.5-5.0) g/dL 07/02/20 Range/Units 06:20 WBC (4.50-10.00) X 10*3/uL RBC (4.10-5.20) X 10*6/uL Hgb (12.0-15.0) g/dL Hct (37.2-46.3) % RDW (11.5-14.5) % Plt Count (140-440) X 10*3/uL MPV (9.5-12.2) fL Immature Gran # (0.00-0.04) X 10*3/uL Neutrophils # (1.80-7.70) X 10*3/uL Monocytes # (0.20-1.00) X 10*3/uL Potassium (3.5-5.1) mmol/L Chloride 118 H (98-107) mmol/L Carbon Dioxide 13 L (22-30) mmol/L BUN 26 H (7-17) mg/dL Creatinine 1.73 H (0.52-1.04) mg/dL Alkaline Phosphatase 218 H (38-126) U/L Total Protein 5.5 L (6.3-8.2) g/dL Albumin 2.9 L (3.5-5.0) g/dL Microbiology - Last 24 Hours (Table) 06/30/20 13:30 Blood Culture - Preliminary Blood No Growth after 48 hours 06/30/20 13:15 Blood Culture - Preliminary Blood No Growth after 48 hours Assessment and Plan Plan: Assessment: #1. Acute left lower lobe pneumonia, likely community-acquired versus aspiration with chronic and ongoing right upper lung opacities, quit 19 screen was negative #2. Leukocytosis secondary to the above #3. History of chronic bronchial asthma, currently inactive in stable #4. Lifelong nonsmoker #5. History of DVT currently not on any anticoagulation on outpatient basis #6. Recent admission for GI bleeding #7. History of dementia #8. severe arthritis #9. History of gastric ulcer with previous multiple abdominal surgeries #10. Migraine cephalgia #11. History of pancreatitis #12. History of spinal stenosis #13. Poor overall functional performance Plan: Continue current antibiotics, clinically patient is stable, she is only requiring 1 L of oxygen, continue weaning FiO2, appears to be in no acute distress, no fever or chills, continue with current antibiotic coverage, modified barium swallow was completed showing episodes of transient penetration with thin liquids, will await recommendations from speech therapy in terms of diet. Otherwise patient is improving, lower extremity Dopplers were noted showing chronic DVTs, patient had a recent history of GI bleeding, and prophylactic dose Lovenox. We'll continue to follow and make further recommendations I performed a history & physical examination of the patient and discussed their management with my nurse practitioner, Brittany Garcia. I reviewed the nurse practitioner's note and agree with the documented findings and plan of care. Lung sounds are positive for diminished breath sounds. The findings and the impression was discussed with the patient. I attest to the documentation by the nurse practitioner. Time with Patient: Less than 30
--- NOTE | 2020-07-02 17:12 | P.PN ---
Subjective Progress Note Date: 07/02/20 This is a 75-year-old female patient of Dr. Eli. Patient presented to ER with complaints of shortness of breath. Patient reports that over the past 3-4 days she's been having increase shortness of breath with cough and sputum production. Patient reports that she frequently gets aspiration pneumonia due to stomach issues and frequent aspiration. Patient has a past medical history of asthma, memory impairment, stomach ulcers, DVT and GERD. Chest x-ray completed showing no change to right upper lobe consolidative opacities. Interval worsening with 2 small adjacent partially consolidative opacities in the left lower lung zone. Reduction of the resolution in the left pleural effusion seen on prior study. Patient started on azithromycin and Rocephin. COVID-19 negative. Potassium low at 3.1. Creatinine 1.94 and bun 34 and repeat labs ordered. Consultation placed for pulmonary and infectious disease. At this time patient reports improvement with shortness of breath denies chest pain . Denies nausea vomiting or diarrhea. Denies any urinary burning or frequency. On 07/02/2020 patient was seen and examined on the medical floor he is alert and oriented 3 in no apparent distress she is still complaining of cough and complaining of pain in the ribs area when she coughs otherwise she denies any complaints there is no fever or chills no headache or dizziness no shortness of breath no nausea or vomiting no abdominal pain no diarrhea no blood in the stools no burning with urination no frequency or urgency no hematuria Objective - Vital Signs Vital signs: Vital Signs Temp 98.3 F 07/02/20 08:00 Pulse 91 07/02/20 08:00 Resp 16 07/02/20 08:00 BP 135/74 07/02/20 08:00 Pulse Ox 96 07/02/20 08:00 Intake & Output 07/01/20 07/02/20 07/02/20 18:59 06:59 18:59 Other: Voiding Method Toilet # Voids 6 - Exam In general patient is alert and oriented 3 in no apparent distress Head normocephalic and atraumatic Neck supple no JVD no goiter Lungs diminshed bilaterally no crackles no wheezing Heart regular rate and rhythm S1-S2, no rub or gallop Abdomen is soft nontender nondistended positive bowel sounds no hepatosplenomegaly Extremities no edema no cyanosis or clubbing Neuro no gross focal neurological deficit - Labs CBC & Chem 7: 07/02/20 06:20 07/02/20 06:20 Labs: Abnormal Lab Results - Last 24 Hours (Table) 07/01/20 07/01/20 07/01/20 Range/Units 10:20 10:20 11:59 WBC 14.58 H (4.50-10.00) X 10*3/uL RBC 3.70 L (4.10-5.20) X 10*6/uL Hgb 10.5 L (12.0-15.0) g/dL Hct 32.3 L (37.2-46.3) % RDW 19.9 H (11.5-14.5) % Plt Count 457 H (140-440) X 10*3/uL MPV 8.9 L (9.5-12.2) fL Immature Gran # 0.11 H (0.00-0.04) X 10*3/uL Neutrophils # 11.80 H (1.80-7.70) X 10*3/uL Monocytes # 1.05 H (0.20-1.00) X 10*3/uL D-Dimer 1.25 H (<0.60) mg/L FEU Potassium 2.7 L* (3.5-5.1) mmol/L Chloride 114 H (98-107) mmol/L Carbon Dioxide 15 L (22-30) mmol/L BUN 31 H (7-17) mg/dL Creatinine 1.60 H (0.52-1.04) mg/dL Glucose 110 H (74-99) mg/dL Calcium 8.2 L (8.4-10.2) mg/dL Alkaline Phosphatase 262 H (38-126) U/L Total Protein 5.9 L (6.3-8.2) g/dL Albumin 3.3 L (3.5-5.0) g/dL 07/01/20 07/02/20 07/02/20 Range/Units 19:41 06:20 06:20 WBC 13.0 H (4.50-10.00) X 10*3/uL RBC 3.70 L (4.10-5.20) X 10*6/uL Hgb 10.6 L (12.0-15.0) g/dL Hct 33.8 L (37.2-46.3) % RDW 20.2 H (11.5-14.5) % Plt Count 452 H (140-440) X 10*3/uL MPV (9.5-12.2) fL Immature Gran # (0.00-0.04) X 10*3/uL Neutrophils # 10.4 H (1.80-7.70) X 10*3/uL Monocytes # (0.20-1.00) X 10*3/uL D-Dimer (<0.60) mg/L FEU Potassium 2.9 L (3.5-5.1) mmol/L Chloride 118 H (98-107) mmol/L Carbon Dioxide 13 L (22-30) mmol/L BUN 26 H (7-17) mg/dL Creatinine 1.73 H (0.52-1.04) mg/dL Glucose (74-99) mg/dL Calcium (8.4-10.2) mg/dL Alkaline Phosphatase 218 H (38-126) U/L Total Protein 5.5 L (6.3-8.2) g/dL Albumin 2.9 L (3.5-5.0) g/dL Microbiology - Last 24 Hours (Table) 06/30/20 13:30 Blood Culture - Preliminary Blood No Growth after 24 hours 06/30/20 13:15 Blood Culture - Preliminary Blood No Growth after 24 hours Assessment and Plan Assessment: 1. Shortness breath secondary to pneumonia. Patient started on azithromycin and Rocephin. Pulmonary and infectious disease consulted. Sputum and blood culture ordered 2. History of peptic ulcer disease 3. History of pancreatitis 4. History of gastrectomy 5. Acute kidney injury. Creatinine 1.94 and bun 34 repeat labs ordered 6. Hypokalemia. Potassium 3.1 replace per protocol repeat labs ordered DVT prophylaxis Lovenox. GI prophylaxis Protonix Zithromax and Rocephin Mucinex added Infectious disease and pulmonary service is consulted Sputum and blood cultures ordered
[2020-07-02] MEDS: MIRTAZAPINE 45 MG TABLET PO SCH (23:05)
[2020-07-02] MEDS: LORATADINE 10 MG TAB PO SCH (23:05)
[2020-07-02] MEDS: SUMAtriptan succinate 50 MG TAB PO PRN (23:17)
--- NOTE | 2020-07-03 03:32 | PN ---
PROGRESS NOTE DATE OF SERVICE: 07/02/2020. REASON FOR FOLLOW UP: Pneumonia. INTERVAL HISTORY: The patient is currently afebrile. Patient is breathing comfortably currently on room air. The patient denies having any chest pain. The patient did have a cough, not bringing up any sputum. No abdominal pain. No diarrhea. PHYSICAL EXAMINATION: Blood pressure 120/69, pulse of 95, temperature 97.6. She is 98% on room air. General description: The patient is an elderly female lying in bed in no distress. Respiratory system: Unlabored breathing, decreased breath sounds in the bases. Heart S1, S2. Regular rate and rhythm. ABDOMEN: Soft, no tenderness. LABS: Hemoglobin is 10.1, white count 13,000, BUN of 26, creatinine 1.73. Blood culture negative. Sputum not collected. DIAGNOSTIC IMPRESSION AND PLAN: Patient with left lower lobe pneumonia, possible community acquired versus aspiration. Patient is covered with Zosyn. Try to obtain a sputum to narrow down antibiotics and continue supportive care. MMODL / IJN: [id number] /
[2020-07-03] MEDS: SODIUM CHLORIDE 0.9% 1,000 ML IV SCH ×2 (03:38→11:42)
[2020-07-03] MEDS: LEVOTHYROXINE 88 MCG TAB PO SCH (05:31)
[2020-07-03] MEDS: HYDROcodone/APAP 5-325MG 1 EACH TAB PO PRN ×2 (05:31→11:34)
[2020-07-03 07:40] VITALS: RESP 18
[2020-07-03] MEDS: CHOLESTYRAMINE (WITH SUGAR) 4 GM PACKET PO SCH (07:57)
[2020-07-03] MEDS: busPIRone HCl 10 MG TAB PO SCH (07:58)
[2020-07-03] MEDS: FOLIC ACID 1 MG TAB PO SCH (07:58)
[2020-07-03] MEDS: BUTALB/APAP/CAFF 50-325-40MG TAB PO PRN ×2 (07:58→13:37)
[2020-07-03] MEDS: FUROSEMIDE 20 MG TAB PO SCH (07:58)
[2020-07-03] MEDS: THIAMINE 100 MG TAB PO SCH (07:58)
[2020-07-03] MEDS: buPROPion XL 300 MG TAB.ER.24H PO SCH (07:58)
[2020-07-03] MEDS: polyethylene glycoL 3350 17 GM POWD.PACK PO SCH (07:59)
[2020-07-03] MEDS: FERROUS SULFATE 325 MG TAB PO SCH (07:59)
[2020-07-03] MEDS: hydrOXYzine pamoate 25 MG CAP PO SCH (07:59)
[2020-07-03] MEDS: DULoxetine HCL 60 MG CAPSULE.DR PO SCH (07:59)
[2020-07-03] MEDS: PANTOPRAZOLE 40 MG TABLET PO SCH (07:59)
[2020-07-03] MEDS: POTASSIUM CHLORIDE ER 10 MEQ TAB.ER.PRT PO SCH (07:59)
[2020-07-03] MEDS ORDERED: ENOXAPARIN 30 MG/0.3 ML SYRINGE SQ SCH (09:00)
[2020-07-03] MEDS: IPRATROPIUM-ALBUTEROL 3 ML NEB INHALATION PRN ×2 (09:05→12:11)
[2020-07-03] MEDS: SYMBICORT 160-4.5 MCG INHALER INHALATION SCH (09:05)
[2020-07-03 13:13] VITALS: BP 115/64; PULSE 96; TEMP 97.9
--- NOTE | 2020-07-03 15:23 | P.PN ---
Subjective Progress Note Date: 07/03/20 Principal diagnosis: Shortness of breath, left-sided chest wall pain This is a very pleasant 75-year-old female patient who follows with Dr. goodwin as her primary care provider. She has a history of pancreatitis, migraine cephalgia, constipation, previous bowel resection, previous gastric surgery, osteoarthritis, DVT, dementia, chronic bronchial asthma, GI bleed. She had also been seen for a right upper lobe pneumonia. Some of which appear chronic in nature. His chest x-ray showed near complete resolution. She is quite frail and cachectic. She's had multiple recent admissions to the hospital. She presented here again to the emergency room yesterday with a 3-4 day history of increasing shortness of breath cough and congestion. She's had green productive sputum. She's had some left anterior chest wall pain. She does admit to having problems keeping food down. Difficulty in swallowing at times. Again she has had multiple abdominal surgeries and has dumping syndrome according to the patient. Chest x-ray continues to show a right upper lobe consolidation unchanged compared to previous in April 2020. There is however interval worsening with 2 small adjacent partially consolidated opacities of the left lower lung. White count 13.6. Humulin 12.2. INR 0.9. D-dimer 1.25. Sodium 141. Potassium 3.4. Bicarb 12. Creatinine 1.94. Troponin negative 1. Case virus not detected. She is seen today in consultation on the regular medical floor. She is currently sitting up in bed. Awake and alert in no acute distress. She is maintaining good O2 saturations in the mid 90s on room air. She's afebrile. Hemodynamically stable. She's been initiated on Symbicort, DuoNeb inhalations, Mucinex. Antibiotics in the form of ceftriaxone and azithr omycin. On 07/02/2020 patient seen in follow-up on medical floor, she is very comfortable, denies any chest pain, breathing comfortably, she is on room air, and her pulse ox is 97%, she's had no fever or chills, no chest wall discomfort. No cough, been seen by speech therapy and she is going for modified barium swallow today, lower extremity Dopplers were completed showing possible chronic nonocclusive thrombus in the right leg and possible chronic nonocclusive thrombus within the deep veins of the left leg. Her VQ scan was positive for multiple matching defects consistent with severe airway disease, and there was intermediate probability of pulmonary embolism. D-dimer was 1.25. However patient appears to be quite comfortable today, she denies any cough or hemoptysis, she's had no fever or chills, she is maintaining stable O2 saturations on room air. She was tested for COVID 19 and she was found to be negative. On 07/03/2020 patient seen in follow-up on medical floor, she is on 3 L of oxygen, No worsening dyspnea, patient has a small pleural effusions. She has a lot of encouragement to work with deep breathing and coughing. Patient had episodes of transient penetration with thin liquid barium no other penetration or aspiration. The recommendation from speech therapy was to continue regular diet with small bites and sips upright positioning and strict universal reflux precautions. No acute events overnight, no fever or chills, no chest pain. Patient continues on oral Augmentin. No worsening dyspnea, patient has been stable. Objective - Vital Signs Vital signs: Vital Signs Temp 97.9 F 07/03/20 12:51 Pulse 96 07/03/20 12:51 Resp 18 07/03/20 12:51 BP 115/64 07/03/20 12:51 Pulse Ox 97 07/03/20 12:51 Intake & Output 07/02/20 07/03/20 07/03/20 18:59 06:59 18:59 Output Total 900 Balance -900 Weight 40.823 kg Output: Urine 900 Other: Voiding Method Toilet # Voids 6 2 # Bowel Movements 1 - Exam GENERAL EXAM: Alert, very pleasant, 75-year-old white female, on room air, with pulse ox of 97% comfortable in no apparent distress. HEAD: Normocephalic/atraumatic. EYES: Normal reaction of pupils, equal size. Conjunctiva pink, sclera white. NOSE: Clear with pink turbinates. THROAT: No erythema or exudates. NECK: No masses, no JVD, no thyroid enlargement, no adenopathy. CHEST: No chest wall deformity. Symmetrical expansion. LUNGS: Equal air entry with no crackles, wheeze, rhonchi or dullness. CVS: Regular rate and rhythm, normal S1 and S2, no gallops, no murmurs, no rubs ABDOMEN: Soft, nontender. No hepatosplenomegaly, normal bowel sounds, no guarding or rigidity. EXTREMITIES: No clubbing, no edema, no cyanosis, 2+ pulses and upper and lower extremities. MUSCULOSKELETAL: Muscle strength and tone normal. SPINE: No scoliosis or deformity SKIN: No rashes CENTRAL NERVOUS SYSTEM: Alert and oriented -3. No focal deficits, tone is normal in all 4 extremities. PSYCHIATRIC: Alert and oriented -3. Appropriate affect. Intact judgment and insight. - Labs CBC & Chem 7: 07/02/20 06:20 07/02/20 06:20 Labs: Microbiology - Last 24 Hours (Table) 06/30/20 13:30 Blood Culture - Preliminary Blood No Growth after 48 hours 06/30/20 13:15 Blood Culture - Preliminary Blood No Growth after 48 hours Assessment and Plan Plan: Assessment: #1. Acute left lower lobe pneumonia, likely community-acquired versus aspiration with chronic and ongoing right upper lung opacities, COVID 19 screen was negative #2. Leukocytosis secondary to the above #3. History of chronic bronchial asthma, currently inactive in stable #4. Lifelong nonsmoker #5. History of DVT currently not on any anticoagulation on outpatient basis #6. Recent admission for GI bleeding #7. History of dementia #8. severe arthritis #9. History of gastric ulcer with previous multiple abdominal surgeries #10. Migraine cephalgia #11. History of pancreatitis #12. History of spinal stenosis #13. Poor overall functional performance Plan: Patient is stable from pulmonary perspective, no worsening dyspnea, she's been treated with Zosyn, she has had no fever or chills, no complaints of chest pain, we'll switch to Zosyn to oral Augmentin, speech therapy recommendations were noted, no penetration or aspiration, but general aspiration precautions were recommended. Patient is stable for discharge home from pulmonary perspective on 7 more days of oral Augmentin and she can follow-up Dr. Montilla in the office in 7-10 days. I performed a history & physical examination of the patient and discussed their management with my nurse practitioner, Brittany Garcia. I reviewed the nurse practitioner's note and agree with the documented findings and plan of care. Lung sounds are positive for diminished breath sounds. The findings and the impression was discussed with the patient. I attest to the documentation by the nurse practitioner. Time with Patient: Less than 30
[2020-07-03] MEDS ORDERED: AMOXIC-POT CLAV 875-125MG 1 EACH TAB PO SCH (21:00)
--- NOTE | 2020-07-04 10:45 | P.DS ---
Providers Date of admission: 06/30/20 13:22 Expected date of discharge: 07/03/20 Attending physician: Palmer Desir Consults: 06/30/20 13:22 Consult Physician Routine Consulting Provider: Jas Gregorio Consult Reason/Comments: CAP Do you want consulting provider notified?: Yes 07/01/20 10:07 Consult Physician Routine Consulting Provider: Ortiz Hernandez Consult Reason/Comments: pneumonia Do you want consulting provider notified?: Yes Primary care physician: Ale Eli Hospital Course: Discharge diagnosis 1. Shortness breath secondary to pneumonia. Patient started on azithromycin and Rocephin. Pulmonary and infectious disease consulted. Sputum and blood culture ordered 2. History of peptic ulcer disease 3. History of pancreatitis 4. History of gastrectomy 5. Acute kidney injury. Creatinine 1.94 and bun 34 repeat labs ordered 6. Hypokalemia. Potassium 3.1 replace per protocol repeat labs ordered Hospital course This is a 75-year-old female patient of Dr. Eli. Patient presented to ER with complaints of shortness of breath. Patient reports that over the past 3-4 days she's been having increase shortness of breath with cough and sputum production. Patient reports that she frequently gets aspiration pneumonia due to stomach issues and frequent aspiration. Patient has a past medical history of asthma, memory impairment, stomach ulcers, DVT and GERD. Chest x-ray completed showing no change to right upper lobe consolidative opacities. Interval worsening with 2 small adjacent partially consolidative opacities in the left lower lung zone. Reduction of the resolution in the left pleural effusion seen on prior study. Patient started on azithromycin and Rocephin. COVID-19 negative. Potassium low at 3.1. Creatinine 1.94 and bun 34 and repeat labs ordered. Consultation placed for pulmonary and infectious disease. At this time patient reports improvement with shortness of breath denies chest pain. Denies nausea vomiting or diarrhea. Denies any urinary burning or frequency. On 07/02/2020 patient was seen and examined on the medical floor he is alert and oriented 3 in no apparent distress she is still complaining of cough and complaining of pain in the ribs area when she coughs otherwise she denies any complaints there is no fever or chills no headache or dizziness no shortness of breath no nausea or vomiting no abdominal pain no diarrhea no blood in the stools no burning with urination no frequency or urgency no hematuria On 07/03/2020 patient cleared for discharge from pulmonary standpoint. Patient discharged on Augmentin and Mucinex. Patient follow-up with PCP for further management Patient Condition at Discharge: Stable Plan - Discharge Summary Discharge Rx Participant: No New Discharge Prescriptions: New Amoxicillin/Potassium Clav [Augmentin 875-125 Tablet] 1 tab PO Q12HR 7 Days #2 tab guaiFENesin [Mucinex] 600 mg PO Q12HR PRN tablet.er PRN Reason: Cough Continue DULoxetine HCL [Cymbalta] 60 mg PO DAILY buPROPion HCL [Wellbutrin XL] 300 mg PO DAILY Ferrous Sulfate [Iron (65 MG Elemental)] 325 mg PO BID Levocetirizine Dihydrochloride [Xyzal] 5 mg PO HS calcitrioL [Calcitriol] 1 mcg PO MOWEFR Levothyroxine Sodium [Synthroid] 88 mcg PO DAILY Albuterol Inhaler [Ventolin Hfa Inhaler] 1 puff INHALATION RT-Q6H PRN PRN Reason: Shortness Of Breath busPIRone HCL [Buspar] 30 mg PO BID Cholestyramine (with Sugar) [Cholestyramine Powder] 4 gm PO BID hydrOXYzine pamoate [hydrOXYzine PAMOATE] 25 mg PO TID Thiamine [Vitamin B-1] 100 mg PO DAILY Potassium Chloride ER [K-Dur 10] 10 meq PO TID Omeprazole [PriLOSEC] 20 mg PO DAILY HYDROcodone/APAP 5-325MG [Jackhorn 5-325] 1 tab PO Q6H PRN PRN Reason: Migraine Headache Pantoprazole Sodium [Protonix] 40 mg PO BID 30 Days #60 tablet. fentaNYL 75MCG/HR PATCH [Duragesic 75MCG/HR] 1 patch TRANSDERM Q72H Budesonide/Formoterol Fumarate [Symbicort 160-4.5 Mcg Inhaler] 2 puff INHALATION RT-BID Butalb/APAP/Caff 50-325-40Mg [Fioricet 50-325-40] 1 tab PO Q4H PRN PRN Reason: Migraine Headache Fluticasone Nasal [place] [Flonase Nasal [place]] 1 spray EA NOSTRIL DAILY PRN PRN Reason: Allergy Symptoms Folic Acid 0.8 mg PO DAILY Furosemide [Lasix] 20 mg PO DAILY Mirtazapine 45 mg PO HS SUMAtriptan SUCCINATE [Imitrex] 50 mg PO DAILY PRN PRN Reason: Migraine Headache Discharge Medication List DULoxetine HCL [Cymbalta] 60 mg PO DAILY 09/17/13 [History] Ferrous Sulfate [Iron (65 MG Elemental)] 325 mg PO BID 11/06/15 [History] buPROPion HCL [Wellbutrin XL] 300 mg PO DAILY 11/06/15 [History] Levocetirizine Dihydrochloride [Xyzal] 5 mg PO HS 05/31/17 [History] Levothyroxine Sodium [Synthroid] 88 mcg PO DAILY 06/07/19 [History] calcitrioL [Calcitriol] 1 mcg PO MOWEFR 06/07/19 [History] Albuterol Inhaler [Ventolin Hfa Inhaler] 1 puff INHALATION RT-Q6H PRN 10/05/19 [History] busPIRone HCL [Buspar] 30 mg PO BID 04/14/20 [History] Cholestyramine (with Sugar) [Cholestyramine Powder] 4 gm PO BID 04/18/20 [History] HYDROcodone/APAP 5-325MG [Jackhorn 5-325] 1 tab PO Q6H PRN 04/18/20 [History] Omeprazole [PriLOSEC] 20 mg PO DAILY 04/18/20 [History] Potassium Chloride ER [K-Dur 10] 10 meq PO TID 04/18/20 [History] Thiamine [Vitamin B-1] 100 mg PO DAILY 04/18/20 [History] hydrOXYzine pamoate [hydrOXYzine PAMOATE] 25 mg PO TID 04/18/20 [History] Pantoprazole Sodium [Protonix] 40 mg PO BID 30 Days #60 tablet. 04/27/20 [Rx] Budesonide/Formoterol Fumarate [Symbicort 160-4.5 Mcg Inhaler] 2 puff INHALATION RT-BID 06/30/20 [History] Butalb/APAP/Caff 50-325-40Mg [Fioricet 50-325-40] 1 tab PO Q4H PRN 06/30/20 [History] Fluticasone Nasal [place] [Flonase Nasal [place]] 1 spray EA NOSTRIL DAILY PRN 06/30/20 [History] Folic Acid 0.8 mg PO DAILY 06/30/20 [History] Furosemide [Lasix] 20 mg PO DAILY 06/30/20 [History] Mirtazapine 45 mg PO HS 06/30/20 [History] SUMAtriptan SUCCINATE [Imitrex] 50 mg PO DAILY PRN 06/30/20 [History] fentaNYL 75MCG/HR PATCH [Duragesic 75MCG/HR] 1 patch TRANSDERM Q72H 06/30/20 [History] Amoxicillin/Potassium Clav [Augmentin 875-125 Tablet] 1 tab PO Q12HR 7 Days #2 tab 07/03/20 [Rx] guaiFENesin [Mucinex] 600 mg PO Q12HR PRN tablet.er 07/03/20 [Rx] Follow up Appointment(s)/Referral(s): Ortiz Hernandez MD [STAFF PHYSICIAN] - 07/24/20 1:30 pm Ale Eli MD [Primary Care Provider] - 07/05/20 1:15 pm Patient Instructions/Handouts: Aspiration Pneumonia (DC) Activity/Diet/Wound Care/Special Instructions: Prescriptions written for: Jack[place] 5/325, one, every 6hours as needed for pain; and mucinex 600mg BID. Discharge Disposition: HOME WITH HOME HEALTH SERVICES
--- NOTE | 2020-07-04 14:32 | CDI ---
Documentation Clarification Form Date: 07/04/2020 02:31:00 PM From: Flor Bray CCS Admit Date: 06/30/2020 01:22:00 PM Patient Name: Louise Sutton Visit Number: [id number] Discharge Date: 07/03/2020 03:01:00 PM ATTENTION: The Clinical Documentation Specialists (CDI) and [facility] Coding Staff appreciate your assistance in clarifying documentation. Please respond to the clarification below the line at the bottom and electronically sign. The CDI & [facility] Coding staff will review the response and follow-up if needed. Please note: Queries are made part of the Legal Health Record. If you have any questions, please contact the author of this message via ITS. Dr. Palmer Desir Patient has been described as: Underweight, cachectic, frail History/Risk Factors: Dumping Syndrome, SHERRY, Hx Gastrectomy, PNA Clinical Indicators: Underweight, cachectic, frail, dysphagia Patients weight is: 40.823 Patients height is: 5 ft 2 in Calculated BMI is: 16.5 Treatments: Glucerna TID, Monitor PO and supplement intake Dietary Consult: 07/02 In order to capture the severity of condition associated with patient BMI of 16.5, a clinical diagnosis needs to be documented by the physician. Please clarify: Cachexia Underweight Malnutrition Mild___ Moderate___ Severe____ Other Unable to determine cachexia MTDD
== END 2020-07-03 15:01 | disposition home or self-care (01) | DRG 178 ==
LOC: EC 11:47 → EEVIPCON 13:22 → 4SSUR 13:22
PROVIDERS: ADMIT Internal Medicine; ATTEND Internal Medicine
DX: J69.0 Pneumonitis due to inhalation of food and vomit (principal); N17.9 Acute kidney failure, unspecified; R64 Cachexia; E87.2 Acidosis; Z68.1 Body mass index [BMI] 19.9 or less, adult; J18.9 Pneumonia, unspecified organism; K91.1 Postgastric surgery syndromes; F03.90 Unspecified dementia, unspecified severity, without behavioral disturbance, psychotic disturbance, mood disturbance, and anxiety; E87.6 Hypokalemia; Z20.822 Contact with and (suspected) exposure to COVID-19; J45.909 Unspecified asthma, uncomplicated; R00.0 Tachycardia, unspecified; K21.9 Gastro-esophageal reflux disease without esophagitis; G43.909 Migraine, unspecified, not intractable, without status migrainosus; R41.3 Other amnesia; F32.9 Major depressive disorder, single episode, unspecified; F41.0 Panic disorder [episodic paroxysmal anxiety]; M19.90 Unspecified osteoarthritis, unspecified site; M48.00 Spinal stenosis, site unspecified; R13.10 Dysphagia, unspecified; Z71.3 Dietary counseling and surveillance; Z87.01 Personal history of pneumonia (recurrent); Z79.899 Other long term (current) drug therapy; Z87.19 Personal history of other diseases of the digestive system; Z79.51 Long term (current) use of inhaled steroids; Z79.890 Hormone replacement therapy; Z86.718 Personal history of other venous thrombosis and embolism; Z87.11 Personal history of peptic ulcer disease; Z86.73 Personal history of transient ischemic attack (TIA), and cerebral infarction without residual deficits; Z87.81 Personal history of (healed) traumatic fracture; Z91.81 History of falling; Z90.49 Acquired absence of other specified parts of digestive tract; Z98.890 Other specified postprocedural states; Z90.3 Acquired absence of stomach [part of]; Z88.8 Allergy status to other drugs, medicaments and biological substances; Z91.048 Other nonmedicinal substance allergy status; Z82.49 Family history of ischemic heart disease and other diseases of the circulatory system; Z80.51 Family history of malignant neoplasm of kidney; Z80.41 Family history of malignant neoplasm of ovary
CPT/HCPCS: 36415; 71045; 74230; 78582; 80053; 83605; 83735; 84132; 84484; 85025; 85379; 85610; 85730; 87040; 87449; 87635; 93005; 93970; 94640; 94760; 96365; 96375; 99285

== ENCOUNTER 2020-07-07 20:34 | Inpatient (IN) | payer MEDICARE, OTHER ==
--- NOTE | 2020-07-07 20:55 | ED ---
General Adult HPI - General Chief complaint: Nausea/Vomiting/Diarrhea Stated complaint: Vomiting, Hx Pneumonia DC'd this week Time Seen by Provider: 07/07/20 20:53 Source: patient Mode of arrival: wheelchair Limitations: no limitations - History of Present Illness Initial comments: Patient presents the ED complaining of nausea and vomiting since this morning and being unable to "keep anything down". Patient was recently discharged from the hospital after being admitted for pneumonia, and she states that she has been unable to keep down her antibiotics today. Patient states that she continues to have a cough and dyspnea. Patient is also complaining of having a headache today. Patient denies trauma or injury, sudden onset of headache, LOC, neck pain or stiffness, fever or chills, focal numbness/weakness/neuro deficit, visual changes, speech difficulty, chest pain, hemoptysis, palpitations, dizziness, abdominal pain, diarrhea or constipation, bloody or melanotic stool, hematemesis, dysuria or urinary symptoms, leg or calf swelling or pain, or any other symptoms or complaints. - Related Data Home Medications Medication Instructions Recorded Confirmed DULoxetine HCL [Cymbalta] 60 mg PO DAILY 09/17/13 06/30/20 Ferrous Sulfate [Iron (65 MG 325 mg PO BID 11/06/15 06/30/20 Elemental)] buPROPion HCL [Wellbutrin XL] 300 mg PO DAILY 11/06/15 06/30/20 Levocetirizine Dihydrochloride 5 mg PO HS 05/31/17 06/30/20 [Xyzal] Levothyroxine Sodium [Synthroid] 88 mcg PO DAILY 06/07/19 06/30/20 calcitrioL [Calcitriol] 1 mcg PO MOWEFR 06/07/19 06/30/20 Albuterol Inhaler [Ventolin Hfa 1 puff INHALATION RT-Q6H PRN 10/05/19 06/30/20 Inhaler] busPIRone HCL [Buspar] 30 mg PO BID 04/14/20 06/30/20 Cholestyramine (with Sugar) 4 gm PO BID 04/18/20 06/30/20 [Cholestyramine Powder] HYDROcodone/APAP 5-325MG [[place] 1 tab PO Q6H PRN 04/18/20 06/30/20 5-325] Omeprazole [PriLOSEC] 20 mg PO DAILY 04/18/20 06/30/20 Potassium Chloride ER [K-Dur 10] 10 meq PO TID 04/18/20 06/30/20 Thiamine [Vitamin B-1] 100 mg PO DAILY 04/18/20 06/30/20 hydrOXYzine pamoate [hydrOXYzine 25 mg PO TID 04/18/20 06/30/20 PAMOATE] Budesonide/Formoterol Fumarate 2 puff INHALATION RT-BID 06/30/20 06/30/20 [Symbicort 160-4.5 Mcg Inhaler] Butalb/APAP/Caff 50-325-40Mg 1 tab PO Q4H PRN 06/30/20 06/30/20 [Fioricet 50-325-40] Fluticasone Nasal [place] [Flonase 1 spray EA NOSTRIL DAILY PRN 06/30/20 06/30/20 Nasal [place]] Folic Acid 0.8 mg PO DAILY 06/30/20 06/30/20 Furosemide [Lasix] 20 mg PO DAILY 06/30/20 06/30/20 Mirtazapine 45 mg PO HS 06/30/20 06/30/20 SUMAtriptan SUCCINATE [Imitrex] 50 mg PO DAILY PRN 06/30/20 06/30/20 fentaNYL 75MCG/HR PATCH [Duragesic 1 patch TRANSDERM Q72H 06/30/20 06/30/20 75MCG/HR] Previous Rx's Medication Instructions Recorded Pantoprazole Sodium [Protonix] 40 mg PO BID 30 Days #60 tablet. 04/27/20 Amoxicillin/Potassium Clav 1 tab PO Q12HR 7 Days #2 tab 07/03/20 [Augmentin 875-125 Tablet] guaiFENesin [Mucinex] 600 mg PO Q12HR PRN tablet.er 07/03/20 Allergies Allergy/AdvReac Type Severity Reaction Status Date / Time denosumab [From Prolia] Allergy SEVERE Verified 07/07/20 20:49 CALCIUM LOSS DUST Allergy Itching Uncoded 07/07/20 20:49 MOLDS Allergy Itching Uncoded 07/07/20 20:49 Review of Systems ROS Statement: Those systems with pertinent positive or pertinent negative responses have been documented in the HPI. ROS Other: All systems not noted in ROS Statement are negative. 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 Fell in May 2019- FX HIP-LAID ON FLOOR FOR 3 DAYS hit back of head. States had short term memory problems until admit in March, discovered hemoglobin was low (anemia), when corrected memory has improved. History of Any Multi-Drug Resistant Organisms: None Reported Past Surgical History: Back Surgery, Bowel Resection Additional Past Surgical History / Comment(s): LOWER BACK SURGERY lamenectomy/discetomy then had a revison of that sx. 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, nasal sx d/t broken nose, colonoscopy/egd, PAIN CLINIC PROCEDURES Past Anesthesia/Blood Transfusion Reactions: No Reported Reaction Additional Past Anesthesia/Blood Transfusion Reaction / Comment(s): PT RECIEVED BLOOD TRANSFUSIONS AFTER STOMACH SURGERY Past Psychological History: Anxiety, Depression, Panic Disorder Smoking Status: Never smoker Past Alcohol Use History: None Reported Past Drug Use History: None Reported - Past Family History Father Family Medical History: Cancer, Coronary Artery Disease (CAD) Additional Family Medical History / Comment(s): FATHER HAD BLADDER AND KIDNEY CANCER. FATHER HAD TB WHEN HE WAS A CHILD .FATHER AT AGE 87. Mother Family Medical History: Cancer Additional Family Medical History / Comment(s): MOTHER AT AGE 58 OF OVARIAN CANCER. General Exam Limitations: no limitations General appearance: alert, in no apparent distress Head exam: Present: atraumatic, normocephalic Eye exam: Present: normal appearance, PERRL, EOMI ENT exam: Present: normal oropharynx Neck exam: Present: other (Trachea is in midline). Absent: tenderness, meningismus Respiratory exam: Present: normal lung sounds bilaterally. Absent: respiratory distress, wheezes, rales, rhonchi, stridor Cardiovascular Exam: Present: normal rhythm, tachycardia, normal heart sounds, other (Normal radial pulses bilaterally) GI/Abdominal exam: Present: soft. Absent: distended, tenderness, guarding Extremities exam: Present: other (Negative Homans sign bilaterally). Absent: tenderness, pedal edema, calf tenderness Neurological exam: Present: alert, oriented X3, CN II-XII intact. Absent: motor sensory deficit Psychiatric exam: Present: normal affect, normal mood Skin exam: Present: warm, dry, intact, normal color Course Vital Signs 07/07/20 20:49 Temperature 97.7 F Pulse Rate 125 H Respiratory 16 Rate Blood Pressure 160/99 O2 Sat by Pulse 97 Oximetry - Reevaluation(s) Reevaluation #1: 07/07/20 22:32 Case, H&P, test results and ED management were discussed with Dr. Desir. He accepts hospital admission. He has no further recommendations at this time. 07/07/20 22:44 Patient denies development of any new symptoms while in the ED. Patient is aware of her test results, and she agrees with hospital admission at this time. Patient remains alert and breathing comfortably. EKG Findings - EKG Comments: EKG Findings:: Sinus tachycardia, ventricular rate of 115 bpm, no ectopy, normal GA and QRS intervals, normal QT interval, normal axis, no ST or T-wave abnor mality Medical Decision Making - Medical Decision Making Given that the patient reports intractable vomiting and inability to keep down her medications at home, will admit the patient to the hospital for IV hydration, antiemetics and further evaluation. Patient is afebrile. Patient's labs are fairly unremarkable when compared to her baseline labs. Patient's chest x-ray is unchanged when compared to her prior. Dr. Desir has accepted hospital admission. - Lab Data Result diagrams: 07/07/20 21:33 07/07/20 21:33 Lab Results 07/07/20 07/07/20 07/07/20 Range/Units 21:33 21:33 21:33 WBC 12.3 H (3.8-10.6) k/uL RBC 4.26 (3.80-5.40) m/uL Hgb 12.2 (11.4-16.0) gm/dL Hct 38.6 (34.0-46.0) % MCV 90.5 (80.0-100.0) fL MCH 28.6 (25.0-35.0) pg MCHC 31.6 (31.0-37.0) g/dL RDW 19.3 H (11.5-15.5) % Plt Count 469 H (150-450) k/uL MPV 6.7 Neutrophils % 85 % Lymphocytes % 9 % Monocytes % 3 % Eosinophils % 2 % Basophils % 1 % Neutrophils # 10.4 H (1.3-7.7) k/uL Lymphocytes # 1.1 (1.0-4.8) k/uL Monocytes # 0.4 (0-1.0) k/uL Eosinophils # 0.3 (0-0.7) k/uL Basophils # 0.1 (0-0.2) k/uL Hypochromasia Slight Poikilocytosis Slight Anisocytosis Slight PT 9.7 (9.0-12.0) sec INR 0.9 (<1.2) APTT 28.4 (22.0-30.0) sec Sodium 140 (137-145) mmol/L Potassium 3.7 (3.5-5.1) mmol/L Chloride 110 H (98-107) mmol/L Carbon Dioxide 15 L (22-30) mmol/L Anion Gap 15 mmol/L BUN 35 H (7-17) mg/dL Creatinine 1.72 H (0.52-1.04) mg/dL Est GFR (CKD-EPI)AfAm 34 (>60 ml/min/1.73 sqM) Est GFR (CKD-EPI)NonAf 29 (>60 ml/min/1.73 sqM) Glucose 101 H (74-99) mg/dL Plasma Lactic Acid Jonah (0.7-2.0) mmol/L Calcium 9.4 (8.4-10.2) mg/dL Magnesium 2.1 (1.6-2.3) mg/dL Total Bilirubin 0.5 (0.2-1.3) mg/dL AST 27 (14-36) U/L ALT 19 (4-34) U/L Alkaline Phosphatase 356 H (38-126) U/L Troponin I (0.000-0.034) ng/mL NT-Pro-B Natriuret Pep pg/mL Total Protein 7.2 (6.3-8.2) g/dL Albumin 4.2 (3.5-5.0) g/dL Coronavirus (PCR) (Not Detectd) 07/07/20 07/07/20 07/07/20 Range/Units 21:33 21:33 21:33 WBC (3.8-10.6) k/uL RBC (3.80-5.40) m/uL Hgb (11.4-16.0) gm/dL Hct (34.0-46.0) % MCV (80.0-100.0) fL MCH (25.0-35.0) pg MCHC (31.0-37.0) g/dL RDW (11.5-15.5) % Plt Count (150-450) k/uL MPV Neutrophils % % Lymphocytes % % Monocytes % % Eosinophils % % Basophils % % Neutrophils # (1.3-7.7) k/uL Lymphocytes # (1.0-4.8) k/uL Monocytes # (0-1.0) k/uL Eosinophils # (0-0.7) k/uL Basophils # (0-0.2) k/uL Hypochromasia Poikilocytosis Anisocytosis PT (9.0-12.0) sec INR (<1.2) APTT (22.0-30.0) sec Sodium (137-145) mmol/L Potassium (3.5-5.1) mmol/L Chloride (98-107) mmol/L Carbon Dioxide (22-30) mmol/L Anion Gap mmol/L BUN (7-17) mg/dL Creatinine (0.52-1.04) mg/dL Est GFR (CKD-EPI)AfAm (>60 ml/min/1.73 sqM) Est GFR (CKD-EPI)NonAf (>60 ml/min/1.73 sqM) Glucose (74-99) mg/dL Plasma Lactic Acid Jonah 0.8 (0.7-2.0) mmol/L Calcium (8.4-10.2) mg/dL Magnesium (1.6-2.3) mg/dL Total Bilirubin (0.2-1.3) mg/dL AST (14-36) U/L ALT (4-34) U/L Alkaline Phosphatase (38-126) U/L Troponin I <0.012 (0.000-0.034) ng/mL NT-Pro-B Natriuret Pep 459 pg/mL Total Protein (6.3-8.2) g/dL Albumin (3.5-5.0) g/dL Coronavirus (PCR) (Not Detectd) 07/07/20 Range/Units 21:33 WBC (3.8-10.6) k/uL RBC (3.80-5.40) m/uL Hgb (11.4-16.0) gm/dL Hct (34.0-46.0) % MCV (80.0-100.0) fL MCH (25.0-35.0) pg MCHC (31.0-37.0) g/dL RDW (11.5-15.5) % Plt Count (150-450) k/uL MPV Neutrophils % % Lymphocytes % % Monocytes % % Eosinophils % % Basophils % % Neutrophils # (1.3-7.7) k/uL Lymphocytes # (1.0-4.8) k/uL Monocytes # (0-1.0) k/uL Eosinophils # (0-0.7) k/uL Basophils # (0-0.2) k/uL Hypochromasia Poikilocytosis Anisocytosis PT (9.0-12.0) sec INR (<1.2) APTT (22.0-30.0) sec Sodium (137-145) mmol/L Potassium (3.5-5.1) mmol/L Chloride (98-107) mmol/L Carbon Dioxide (22-30) mmol/L Anion Gap mmol/L BUN (7-17) mg/dL Creatinine (0.52-1.04) mg/dL Est GFR (CKD-EPI)AfAm (>60 ml/min/1.73 sqM) Est GFR (CKD-EPI)NonAf (>60 ml/min/1.73 sqM) Glucose (74-99) mg/dL Plasma Lactic Acid Jonah (0.7-2.0) mmol/L Calcium (8.4-10.2) mg/dL Magnesium (1.6-2.3) mg/dL Total Bilirubin (0.2-1.3) mg/dL AST (14-36) U/L ALT (4-34) U/L Alkaline Phosphatase (38-126) U/L Troponin I (0.000-0.034) ng/mL NT-Pro-B Natriuret Pep pg/mL Total Protein (6.3-8.2) g/dL Albumin (3.5-5.0) g/dL Coronavirus (PCR) Not Detected (Not Detectd) - Radiology Data Radiology results: report reviewed (Noncontrast head CT: Negative unenhanced head CT, no change; chest x-ray: Bilateral pulmonary infiltrates similar to recent exam, no heart failure) Disposition Clinical Impression: Nausea and vomiting, Headache Disposition: ADMITTED IP TO THIS [facility] Condition: Stable Is patient prescribed a controlled substance at d/c from ED?: No Referrals: Ale Eli MD [Primary Care Provider] - 1-2 days Time of Disposition: 22:33
[2020-07-07] MEDS ORDERED: SODIUM CHLORIDE 0.9% 500 ML 500 ML IV STA (20:58)
[2020-07-07] MEDS ORDERED: ONDANSETRON 4 MG/2 ML VIAL IVP STA (20:59)
--- NOTE | 2020-07-07 21:21 | CT ---
EXAMINATION TYPE: CT brain wo con DATE OF EXAM: 07/07/2020 COMPARISON: 03/10/2020 HISTORY: FOWLER CT DLP: 1031.4 mGycm Automated exposure control for dose reduction was used. Ventricles and sulci appear normal for age. There is no mass effect nor midline shift. There is no si gn of intracranial hemorrhage. The calvarium is intact. There is no evidence of cerebral edema. IMPRESSION: Negative unenhanced head CT scan. No change.
--- NOTE | 2020-07-07 21:25 | XR ---
EXAMINATION TYPE: XR chest 2V DATE OF EXAM: 07/07/2020 COMPARISON: 07/01/2020 HISTORY: Difficulty breathing TECHNIQUE: FINDINGS: There is a fourth similar patch of airspace infiltrate above the right minor fissure. There is similar 4 cm patch of airspace infiltrate along the left major fissure. There is no heart failure . Heart size is normal. There is old healed fracture left clavicle. There is no pleural effusion. The re is some minimal infiltrate left lung base. IMPRESSION: Bilateral pulmonary infiltrates similar to recent exam. No heart failure.
[2020-07-07 21:44] LABS: Anisocytosis Slight; Basophils # (A) 0.1 k/uL (0-0.2); Basophils % (A) 1 %; Eosinophils # (A) 0.3 k/uL (0-0.7); Eosinophils % (A) 2 %; HCT 38.6 % (34.0-46.0); HGB 12.2 gm/dL (11.4-16.0); Hypochromasia Slight; Lymphocytes # (A) 1.1 k/uL (1.0-4.8); Lymphocytes % (A) 9 %; MCH 28.6 pg (25.0-35.0); MCHC 31.6 g/dL (31.0-37.0); MCV 90.5 fL (80.0-100.0); Mean Platelet Volume 6.7; Monocytes # (A) 0.4 k/uL (0-1.0); Monocytes % (A) 3 %; Neutrophils # (A) 10.4 k/uL (1.3-7.7); Neutrophils % (A) 85 %; Platelet Count 469 k/uL (150-450); Poikilocytosis Slight; RBC 4.26 m/uL (3.80-5.40); RDW 19.3 % (11.5-15.5); WBC 12.3 k/uL (3.8-10.6)
[2020-07-07 21:55] LABS: INR 0.9 (<1.2); Partial Thromboplastin Time 28.4 sec (22.0-30.0); Prothrombin Time 9.7 sec (9.0-12.0)
[2020-07-07 21:56] LABS: Albumin 4.2 g/dL (3.5-5.0); Calcium 9.4 mg/dL (8.4-10.2); Magnesium 2.1 mg/dL (1.6-2.3); Potassium 3.7 mmol/L (3.5-5.1); Total Bilirubin 0.5 mg/dL (0.2-1.3); Total Protein 7.2 g/dL (6.3-8.2)
[2020-07-07] MEDS ORDERED: MORPHINE SULFATE 4 MG/ML SYRINGE IVP STA (22:41)
[2020-07-07] MEDS ORDERED: NALOXONE 0.4 MG/ML 1 ML VIAL IV PRN (22:42)
[2020-07-07 22:54] LABS: Appearance,Urine Clear (Clear); Bilirubin,Urine Negative (Negative); Blood,Urine Negative (Negative); Color,Urine Yellow; Glucose,Urine (UA) Negative (Negative); Ketones,Urine Negative (Negative); Leukocyte Esterase,Urine Negative (Negative); Nitrite,Urine Negative (Negative); Protein,Urine 1+ (Negative); Specific Gravity,Urine 1.014 (1.001-1.035); Squamous Epithelial Cell,Urine 4 /hpf (0-4); Urobilinogen,Urine <2.0 mg/dL (<2.0); WBC,Urine 1 /hpf (0-5)
[2020-07-07] MEDS: SODIUM CHLORIDE 0.9% 1,000 ML IV SCH (22:56)
[2020-07-08] MEDS: ONDANSETRON 4 MG/2 ML VIAL IVP PRN ×3 (04:14→21:16)
[2020-07-08] MEDS: MORPHINE SULFATE 4 MG/ML SYRINGE IV PRN ×5 (04:14→21:16)
[2020-07-08 06:15] LABS: Anisocytosis Slight; Basophils # (A) 0.1 k/uL (0-0.2); Basophils % (A) 1 %; Eosinophils # (A) 0.3 k/uL (0-0.7); Eosinophils % (A) 3 %; HCT 35.1 % (34.0-46.0); Hypochromasia Moderate; Lymphocytes # (A) 1.5 k/uL (1.0-4.8); Lymphocytes % (A) 14 %; MCH 28.7 pg (25.0-35.0); MCHC 31.5 g/dL (31.0-37.0); MCV 91.3 fL (80.0-100.0); Mean Platelet Volume 6.9; Monocytes # (A) 0.6 k/uL (0-1.0); Monocytes % (A) 5 %; Neutrophils # (A) 8.7 k/uL (1.3-7.7); Neutrophils % (A) 77 %; Platelet Count 461 k/uL (150-450); Poikilocytosis Slight; RBC 3.84 m/uL (3.80-5.40); RDW 19.1 % (11.5-15.5); WBC 11.3 k/uL (3.8-10.6)
[2020-07-08 06:31] LABS: Albumin 3.3 g/dL (3.5-5.0); Calcium 8.8 mg/dL (8.4-10.2); Potassium 3.5 mmol/L (3.5-5.1); Total Bilirubin 0.4 mg/dL (0.2-1.3); Total Protein 5.9 g/dL (6.3-8.2)
[2020-07-08] MEDS ORDERED: guaiFENesin 600 MG TABLET.ER PO PRN (10:22)
--- NOTE | 2020-07-08 11:28 | P.HPIM ---
History of Present Illness H&P Date: 07/08/20 Chief Complaint: Nausea vomiting This is a 75-year-old female patient who presents to the ER with complaints of nausea and vomiting. Patient was recently discharged and treated for pneumonia. Patient reports that she was unable to take her antibiotic without vomiting which prompted her to come the ER for further evaluation. Patient has a past medical history of asthma, DVT, GERD, memory impairment, pancreatitis and chronic pain. Head CT was performed in ER showing negative unenhanced head CT scan no change. Chest x-ray performed showing bilateral pulmonary infiltrates similar to recent exam failure. Started on IV Rocephin for pneumonia and pulmonary service is consulted. GI service is consulted for the nausea Protonix and Zofran ordered. Creatinine 1.59 and bun 30 this does appear on patient's baseline. At this time patient is resting comfortably in bed states she has been able to keep down sara maximino. Patient denies chest pain. Patient does report some wheezing and coughing. Patient denies any urinary burning or frequency. Patient denies any diarrhea Review of Systems Please refer to HPI otherwise unremarkable Past Medical History Past Medical History: Asthma, Deep Vein Thrombosis (DVT), GERD/Reflux, Memory Impairment Additional Past Medical History / Comment(s): OA IN NECK,BACK AND BILATERAL ARMS, PUD, edema,low calcium; migraine headaches, guevara creatitis,constipation,tia,spinal stenosis(had sx ), CRF. Fell in May 2019-FX HIP-LAID ON FLOOR FOR 3 DAYS hit back of head. States had short term memory problems until admit in March, discovered hemoglobin was low (anemia), when corrected memory has improved. History of Any Multi-Drug Resistant Organisms: None Reported Past Surgical History: Back Surgery, Bowel Resection Additional Past Surgical History / Comment(s): LOWER BACK SURGERY lamenectomy/discetomy then had a revison of that sx. 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 PT IS ABLE TO DRIVE A CAR. 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 Smoking Status: Never smoker Past Alcohol Use History: None Reported Past Drug Use History: None Reported - Past Family History Father Family Medical History: Cancer, Coronary Artery Disease (CAD) Additional Family Medical History / Comment(s): FATHER HAD BLADDER AND KIDNEY CANCER. FATHER HAD TB WHEN HE WAS A CHILD .FATHER AT AGE 87. Mother Family Medical History: Cancer Additional Family Medical History / Comment(s): MOTHER AT AGE 58 OF OVARIAN CANCER. Medications and Allergies Home Medications Medication Instructions Recorded Confirmed Type DULoxetine HCL [Cymbalta] 60 mg PO DAILY 09/17/13 07/07/20 History Ferrous Sulfate [Iron (65 MG 325 mg PO BID 11/06/15 07/07/20 History Elemental)] buPROPion HCL [Wellbutrin XL] 300 mg PO DAILY 11/06/15 07/07/20 History Levocetirizine Dihydrochloride 5 mg PO HS 05/31/17 07/07/20 History [Xyzal] Levothyroxine Sodium [Synthroid] 88 mcg PO DAILY 06/07/19 07/07/20 History calcitrioL [Calcitriol] 1 mcg PO MOWEFR 06/07/19 07/07/20 History Albuterol Inhaler [Ventolin Hfa 1 puff INHALATION RT-Q6H PRN 10/05/19 07/07/20 History Inhaler] busPIRone HCL [Buspar] 30 mg PO BID 04/14/20 07/07/20 History Cholestyramine (with Sugar) 4 gm PO BID 04/18/20 07/07/20 History [Cholestyramine Powder] HYDROcodone/APAP 5-325MG [[place] 1 tab PO Q6H PRN 04/18/20 07/07/20 History 5-325] Omeprazole [PriLOSEC] 20 mg PO DAILY 04/18/20 07/07/20 History Potassium Chloride ER [K-Dur 10] 10 meq PO TID 04/18/20 07/07/20 History Thiamine [Vitamin B-1] 100 mg PO DAILY 04/18/20 07/07/20 History hydrOXYzine pamoate [hydrOXYzine 25 mg PO TID 04/18/20 07/07/20 History PAMOATE] Pantoprazole Sodium [Protonix] 40 mg PO BID 30 Days #60 tablet. 04/27/20 07/07/20 Rx Budesonide/Formoterol Fumarate 2 puff INHALATION RT-BID 06/30/20 07/07/20 History [Symbicort 160-4.5 Mcg Inhaler] Butalb/APAP/Caff 50-325-40Mg 1 tab PO Q4H PRN 06/30/20 07/07/20 History [Fioricet 50-325-40] Fluticasone Nasal [place] [Flonase 1 spray EA NOSTRIL DAILY PRN 06/30/20 07/07/20 History Nasal [place]] Folic Acid 0.8 mg PO DAILY 06/30/20 07/07/20 History Furosemide [Lasix] 20 mg PO DAILY 06/30/20 07/07/20 History Mirtazapine 45 mg PO HS 06/30/20 07/07/20 History SUMAtriptan SUCCINATE [Imitrex] 50 mg PO DAILY PRN 06/30/20 07/07/20 History fentaNYL 75MCG/HR PATCH [Duragesic 1 patch TRANSDERM Q72H 06/30/20 07/07/20 History 75MCG/HR] Amoxicillin/Potassium Clav 1 tab PO Q12HR 7 Days #2 tab 07/03/20 07/07/20 Rx [Augmentin 875-125 Tablet] guaiFENesin [Mucinex] 600 mg PO Q12HR PRN tablet.er 07/03/20 07/07/20 Rx Allergies Allergy/AdvReac Type Severity Reaction Status Date / Time denosumab [From Prolia] Allergy SEVERE Verified 07/07/20 23:26 CALCIUM LOSS Milk Containing Products AdvReac Diarrhea Verified 07/08/20 00:19 [Dairy] DUST Allergy Itching Uncoded 07/07/20 23:26 MOLDS Allergy Itching Uncoded 07/07/20 23:26 Physical Exam Vitals: Vital Signs Temp Pulse Pulse Resp BP BP Pulse Ox 07/08/20 07:15 16 07/08/20 04:46 97.6 F 98 16 155/77 99 07/08/20 00:11 98.0 F 117 H 16 147/72 96 07/07/20 22:30 111 H 18 140/88 96 07/07/20 20:49 97.7 F 125 H 16 160/99 97 Intake and Output 0307/08/20 07/08/20 22:59 06:59 14:59 Intake Total 1490 Output Total 0 Balance 1490 Intake: Intake, IV Titration 540 Amount Sodium Chloride 0.9% 1, 540 000 ml @ 80 mls/hr [facility] . [id number] Rx#:[id number] Oral 950 Output: Emesis 0 Other: Voiding Method Bedside Commode # Voids 1 Weight 38.555 kg 38.555 kg Results CBC & Chem 7: 07/08/20 05:35 07/08/20 05:35 Labs: Abnormal Lab Results - Last 24 Hours (Table) 07/07/20 07/07/20 07/07/20 Range/Units 21:33 21:33 22:30 WBC 12.3 H (3.8-10.6) k/uL Hgb (11.4-16.0) gm/dL RDW 19.3 H (11.5-15.5) % Plt Count 469 H (150-450) k/uL Neutrophils # 10.4 H (1.3-7.7) k/uL Chloride 110 H (98-107) mmol/L Carbon Dioxide 15 L (22-30) mmol/L BUN 35 H (7-17) mg/dL Creatinine 1.72 H (0.52-1.04) mg/dL Glucose 101 H (74-99) mg/dL Alkaline Phosphatase 356 H (38-126) U/L Total Protein (6.3-8.2) g/dL Albumin (3.5-5.0) g/dL Urine Protein 1+ H (Negative) 07/08/20 07/08/20 Range/Units 05:35 05:35 WBC 11.3 H (3.8-10.6) k/uL Hgb 11.0 L (11.4-16.0) gm/dL RDW 19.1 H (11.5-15.5) % Plt Count 461 H (150-450) k/uL Neutrophils # 8.7 H (1.3-7.7) k/uL Chloride 112 H (98-107) mmol/L Carbon Dioxide 17 L (22-30) mmol/L BUN 30 H (7-17) mg/dL Creatinine 1.59 H (0.52-1.04) mg/dL Glucose 71 L (74-99) mg/dL Alkaline Phosphatase 273 H (38-126) U/L Total Protein 5.9 L (6.3-8.2) g/dL Albumin 3.3 L (3.5-5.0) g/dL Urine Protein (Negative) Thrombosis Risk Factor Assmnt - Choose All That Apply Each Risk Factor Represents 2 Points: Age 61-74 years Thrombosis Risk Factor Assessment Total Risk Factor Score: 2 Thrombosis Risk Factor Assessment Level: Low Risk Assessment and Plan Assessment: 1. Intractable vomiting. Zofran ordered. GI service is consulted. Amylase a nd lipase ordered 2. Pneumonia. Patient recently discharged on antibiotics. Pulmonary services reconsulted and patient started on Rocephin. We'll also consult infectious disease due to possible aspiration 3. History of peptic ulcer disease 4. History of pancreatitis 5. History of gastrectomy 6. Chronic kidney disease stage III. Labs do appear on baseline 7. Chronic pain. Patient maintained on fentanyl patch DVT prophylaxis Lovenox. GI prophylaxis Protonix GI, pulmonary and infectious disease service is consulted Rocephiazalea for IV antibiotics Amylase lipase levels ordered Time with Patient: Greater than 30
[2020-07-08 11:51] LABS: Amylase 88 U/L (30-110); Lipase 74 U/L (23-300)
[2020-07-08] MEDS: ALBUTEROL HFA INHALER INHALATION PRN ×2 (11:51→18:08)
[2020-07-08] MEDS: SODIUM CHLORIDE 0.9% 1,000 ML IV SCH (12:42)
--- NOTE | 2020-07-08 14:12 | P.CNPUL ---
History of Present Illness Consult date: 07/08/20 Requesting physician: Palmer Desir Reason for consult: other Chief complaint: Intractable vomiting and weakness. History of present illness: 75-year-old female well known to us. She has a long-standing history of COPD/asthma, and was recently discharged from the hospital on Thursday afternoon, and readmitted to the hospital last night. She came into the emergency department complaining of nausea, vomiting, and diarrhea. She blames it on the antibiotics that she was given. She states that she was not able to keep anything down. On her previous admission, she was admitted with COPD exace rbation and pneumonia. She was discharged home on antibiotics. She did okay initially, but over the last couple days, she had the nausea, and vomiting, as well as diarrhea. She also complains of headache. She denies any trauma. There is no chest pain or chest discomfort. She states that her breathing is pre-much at baseline. She denies vomiting up blood, and she denies any blood in her stools or melanotic stools. Her primary care physician is Dr. Eli. Her medical history includes chronic bronchial asthma, DVT, gastroesophageal reflux disease, dementia, osteoarthritis, migraine cephalgia, pancreatitis, TIA, and spinal stenosis. White count was 11.3, hemoglobin 11, hematocrit 35.1, and platelet count 461,000. PT, INR, and PTT were all normal. Sodium 141, potassium 3.5, chloride 112, CO2 17, anion gap 12, BUN 30, and creatinine 1.59. His electrolytes are consistent with a mild non-anion gap metabolic acidosis. Amylase and lipase were normal. Urine was negative. Chest x-ray, that was compared to a chest x-ray done on July 01, shows bilateral pulmonary infiltrates, and are unchanged. Review of Systems REVIEW OF SYSTEMS: CONSTITUTIONAL: Weakness. NEUROLOGIC: [ Negative.] HEENT: [ Negative.] CARDIAC: [Negative.] PULMONARY: Chronic shortness of breath, at baseline. GI: Nausea, vomiting, diarrhea. : [Negative.] RHEUMATOLOGIC: [ Negative.] IMMUNOLOGIC: [ Negative.] ENDOCRINE: [Negative. ] DERMATOLOGIC: [Negative.] Past Medical History Past Medical History: Asthma, Deep Vein Thrombosis (DVT), GERD/Reflux, Memory Impairment Additional Past Medical History / Comment(s): OA IN NECK,BACK AND BILATERAL ARMS, PUD, edema,low calcium; migraine headaches, pancreati tis,constipation,tia,spinal stenosis(had sx ), CRF. Fell in May 2019-FX HIP-LAID ON FLOOR FOR 3 DAYS hit back of head. States had short term memory problems until admit in March, discovered hemoglobin was low (anemia), when corrected memory has improved. History of Any Multi-Drug Resistant Organisms: None Reported Past Surgical History: Back Surgery, Bowel Resection Additional Past Surgical History / Comment(s): LOWER BACK SURGERY lamenectomy/discetomy then had a revison of that sx. 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, nasal sx d/t broken nose, colonoscopy/egd, PAIN CLINIC PROCEDURES Past Anesthesia/Blood Transfusion Reactions: No Reported Reaction Additional Past Anesthesia/Blood Transfusion Reaction / Comment(s): PT RECIEVED BLOOD TRANSFUSIONS AFTER STOMACH SURGERY Past Psychological History: Anxiety, Depression, Panic Disorder Additional Psychological History / Comment(s): PT LIVES AT HOME ALONE. PT IS ABLE TO DRIVE A CAR. 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 Smoking Status: Never smoker Past Alcohol Use History: None Reported Past Drug Use History: None Reported - Past Family History Father Family Medical History: Cancer, Coronary Artery Disease (CAD) Additional Family Medical History / Comment(s): FATHER HAD BLADDER AND KIDNEY CANCER. FATHER HAD TB WHEN HE WAS A CHILD .FATHER AT AGE 87. Mother Family Medical History: Cancer Additional Family Medical History / Comment(s): MOTHER AT AGE 58 OF OVARIAN CANCER. Medications and Allergies Home Medications Medication Instructions Recorded Confirmed Type DULoxetine HCL [Cymbalta] 60 mg PO DAILY 09/17/13 07/07/20 History Ferrous Sulfate [Iron (65 MG 325 mg PO BID 11/06/15 07/07/20 History Elemental)] buPROPion HCL [Wellbutrin XL] 300 mg PO DAILY 11/06/15 07/07/20 History Levocetirizine Dihydrochloride 5 mg PO HS 05/31/17 07/07/20 History [Xyzal] Levothyroxine Sodium [Synthroid] 88 mcg PO DAILY 06/07/19 07/07/20 History calcitrioL [Calcitriol] 1 mcg PO MOWEFR 06/07/19 07/07/20 History Albuterol Inhaler [Ventolin Hfa 1 puff INHALATION RT-Q6H PRN 10/05/19 07/07/20 History Inhaler] busPIRone HCL [Buspar] 30 mg PO BID 04/14/20 07/07/20 History Cholestyramine (with Sugar) 4 gm PO BID 04/18/20 07/07/20 History [Cholestyramine Powder] HYDROcodone/APAP 5-325MG [[place] 1 tab PO Q6H PRN 04/18/20 07/07/20 History 5-325] Omeprazole [PriLOSEC] 20 mg PO DAILY 04/18/20 07/07/20 History Potassium Chloride ER [K-Dur 10] 10 meq PO TID 04/18/20 07/07/20 History Thiamine [Vitamin B-1] 100 mg PO DAILY 04/18/20 07/07/20 History hydrOXYzine pamoate [hydrOXYzine 25 mg PO TID 04/18/20 07/07/20 History PAMOATE] Pantoprazole Sodium [Protonix] 40 mg PO BID 30 Days #60 tablet. 04/27/20 07/07/20 Rx Budesonide/Formoterol Fumarate 2 puff INHALATION RT-BID 06/30/20 07/07/20 History [Symbicort 160-4.5 Mcg Inhaler] Butalb/APAP/Caff 50-325-40Mg 1 tab PO Q4H PRN 06/30/20 07/07/20 History [Fioricet 50-325-40] Fluticasone Nasal [place] [Flonase 1 spray EA NOSTRIL DAILY PRN 06/30/20 07/07/20 History Nasal [place]] Folic Acid 0.8 mg PO DAILY 06/30/20 07/07/20 History Furosemide [Lasix] 20 mg PO DAILY 06/30/20 07/07/20 History Mirtazapine 45 mg PO HS 06/30/20 07/07/20 History SUMAtriptan SUCCINATE [Imitrex] 50 mg PO DAILY PRN 06/30/20 07/07/20 History fentaNYL 75MCG/HR PATCH [Duragesic 1 patch TRANSDERM Q72H 06/30/20 07/07/20 History 75MCG/HR] Amoxicillin/Potassium Clav 1 tab PO Q12HR 7 Days #2 tab 07/03/20 07/07/20 Rx [Augmentin 875-125 Tablet] guaiFENesin [Mucinex] 600 mg PO Q12HR PRN tablet.er 07/03/20 07/07/20 Rx Allergies Allergy/AdvReac Type Severity Reaction Status Date / Time denosumab [From Prolia] Allergy SEVERE Verified 07/07/20 23:26 CALCIUM LOSS Milk Containing Products AdvReac Diarrhea Verified 07/08/20 00:19 [Dairy] DUST Allergy Itching Uncoded 07/07/20 23:26 MOLDS Allergy Itching Uncoded 07/07/20 23:26 Physical Exam Osteopathic Statement: *. No significant issues noted on an osteopathic structural exam other than those noted in the History and Physical/Consult. Vitals: Vital Signs Temp Pulse Pulse Resp BP BP Pulse Ox 07/08/20 07:15 16 07/08/20 04:46 97.6 F 98 16 155/77 99 07/08/20 00:11 98.0 F 117 H 16 147/72 96 07/07/20 22:30 111 H 18 140/88 96 07/07/20 20:49 97.7 F 125 H 16 160/99 97 Intake and Output 07/07/20 07/08/20 07/08/20 22:59 06:59 14:59 Intake Total 1490 Output Total 0 Balance 1490 Intake: Intake, IV Titration 540 Amount Sodium Chloride 0.9% 1, 540 000 ml @ 80 mls/hr IV . [id number] [facility] Rx#:[id number] Oral 950 Output: Emesis 0 Other: Voiding Method Bedside Commode # Voids 1 Weight 38.555 kg 38.555 kg No acute distress, oriented 3. No respiratory difficulty. Not on any supplemental oxygen. HEENT examination is grossly unremarkable. Mucous membranes are moist. No oral lesions. Neck supple. Full range of motion. No adenopathy thyromegaly or neck vein distention. Cardiovascular examination reveals regular rhythm rate. S1-S2 normal. No S3 or S4. No discernible murmur noted. Heart rate 98 bpm. Lungs reveal minimal bilateral rhonchi. No wheezes or crackles. Breath sounds were equal. Abdomen soft bowel sounds are heard. No masses or tenderness. Extremities are intact. No cyanosis clubbing or edema. Skin is without rash or lesion. Neurologic examination is brief but nonfocal. Results - Laboratory Findings CBC and BMP: 07/08/20 05:35 07/08/20 05:35 PT/INR, D-dimer PT 9.7 sec (9.0-12.0) 07/07/20 21:33 INR 0.9 (<1.2) 07/07/20 21:33 Abnormal lab findings: Abnormal Labs 07/07/20 07/07/20 07/07/20 21:33 21:33 22:30 WBC 12.3 H Hgb RDW 19.3 H Plt Count 469 H Neutrophils # 10.4 H Chloride 110 H Carbon Dioxide 15 L BUN 35 H Creatinine 1.72 H Glucose 101 H Alkaline Phosphatase 356 H Total Protein Albumin Urine Protein 1+ H 07/08/20 07/08/20 05:35 05:35 WBC 11.3 H Hgb 11.0 L RDW 19.1 H Plt Count 461 H Neutrophils # 8.7 H Chloride 112 H Carbon Dioxide 17 L BUN 30 H Creatinine 1.59 H Glucose 71 L Alkaline Phosphatase 273 H Total Protein 5.9 L Albumin 3.3 L Urine Protein - Diagnostic Findings Chest x-ray: image reviewed Assessment and Plan Assessment: Nausea, vomiting, and diarrhea, which the patient blames on her discharge antibiotics. Recent admission for bilateral pneumonia, with a stable respiratory status, and an unchanged chest x-ray. History of chronic bronchial asthma. General medical debility. History of chronic anemia. History of hypothyroidism. History of hyperlipidemia. History of migraine cephalgia. History of deep venous thrombosis. History of gastroesophageal reflux disease. History of dementia. Multiple other medical problems and comorbidities. Plan: Plan dated 07/08/2020. The patient was recently discharged from the hospital on July 03. The patient was discharged on Augmentin therapy. She blames her nausea, vomiting, diarrhea, dehydration, and weakness on this antibiotic. She does not have an ALLERGY to penicillin. Clinically, the patient looks well. She doesn't really have any respiratory difficulties whatsoever. She is on room air oxygen. Her chest x- ray similar to the prior chest x-ray when she was inpatient. We will continue to follow. Prognosis is guarded. She was placed on her usual asthma medication by the primary, and also started back on Rocephin. A pro-calcitonin level should be done. Time with Patient: Greater than 30
[2020-07-08] MEDS: POTASSIUM CHLORIDE ER 10 MEQ TAB.ER.PRT PO SCH ×2 (16:30→21:13)
[2020-07-08] MEDS: hydrOXYzine pamoate 25 MG CAP PO SCH ×2 (16:30→22:25)
[2020-07-08] MEDS: buPROPion XL 300 MG TAB.ER.24H PO SCH (16:31)
[2020-07-08] MEDS: SYMBICORT 160-4.5 MCG INHALER INHALATION SCH (18:08)
--- NOTE | 2020-07-08 19:47 | CONS ---
CONSULTATION DATE OF SERVICE: 07/08/2020 REASON FOR CONSULTATION: Recurrent episodes of nausea, vomiting and questionable aspiration pneumonia. HISTORY OF PRESENT ILLNESS: The patient is a 75-year-old pleasant white female with history of total gastrectomy in 1994 for peptic ulcer disease, admitted to the hospital because of abdominal discomfort associated with nausea and vomiting that started about two days ago. The patient was just in the hospital and was treated for aspiration pneumonia with antibiotics and was discharged home and while at home, she started having intractable nausea, vomiting and came back to the emergency room. The patient states that she has been admitted to the hospital about 15 times in the last one year for recurrent bouts of pneumonia. The patient states that she did have a video fluoroscopy done on July 02 during her last hospitalization which showed episodes of transient penetration with thin liquid barium, but no other penetration or aspiration noted. She also had an upper endoscopy done by Dr. Turner on April 18, 2020 that showed evidence of a total gastrectomy but no other pathology was identified. There was no esophageal stricture or anastomotic stricture identified. The patient also has been complaining of intermittent dysphagia with swallowing. PAST MEDICAL HISTORY: Significant for asthma, DVT, history of peptic ulcer disease in the past status post total gastrectomy, chronic back pain, chronic migraine headaches, history of pancreatitis in the past. PAST SURGICAL HISTORY: Total gastrectomy in 1994, laminectomy, EGD in March of 2020. MEDICATIONS: Medications at home include Cymbalta, iron, Wellbutrin, Xyzal, Synthroid, calcitriol, albuterol, BuSpar, cholestyramine, [place] Prilosec, K-Dur, thiamine, hydroxyzine, Symbicort, Fioricet, folic acid, Flonase, Augmentin, Duragesic, Imitrex, ( ) and Lasix. ALLERGIES: DUST, MOLD AND PROLIA. SOCIAL HISTORY: No smoking, no alcohol use. FAMILY HISTORY: Father had coronary artery disease. Mother had ovarian cancer. REVIEW OF SYSTEMS: CARDIOPULMONARY: Recurrent episodes of aspiration pneumonia. GENITOURINARY: No dysuria or hematuria. MUSCULOSKELETAL: Unremarkable. SKIN: Unremarkable. ENDOCRINE: Unremarkable. PSYCHIATRIC: Unremarkable. NEUROLOGY: Unremarkable. ENT/VISION: Unremarkable. CONSTITUTIONAL: No fever, chills, night sweats. GI: As mentioned above. PHYSICAL EXAMINATION: She appears comfortable, no apparent distress. Vital signs stable. Blood pressure is 130/82, pulse rate 99 per minute and afebrile. HEENT examination unremarkable. Conjunctivae pink. Sclerae anicteric. Oral cavity, no lesions. NECK: No JVD or lymph node enlargement. CHEST: Clear to auscultation. HEART: Regular rate and rhythm. ABDOMEN: Soft. Bowel sounds are positive. No organomegaly. There was mild tenderness in the epigastric area. EXTREMITIES: No pedal edema. SKIN; No rashes. NEUROLOGIC: Alert and oriented x3. No focal deficits. Chest x-ray done yesterday, bilateral pulmonary infiltrates noted. No evidence of heart failure. LABS: WBC 11.3, hemoglobin 11, platelets 461. BUN 30, creatinine 1.59. AST, ALT, T- bilirubin normal. Alkaline phosphatase is 273. IMPRESSION: 1. This is a lady who presents to the hospital with intractable nausea and vomiting associated with epigastric pain for the last few days duration. She has been having these episodes on and off several times over the last one year. She had an upper endoscopy by Dr. Turner that was done in March of 2020 that showed normal- appearing esophagus with no evidence of esophagitis or esophageal stricture. There was evidence of total gastrectomy and there was no anastomotic stricture. She is also complaining of dysphagia to solids and feels that she has been having aspiration pneumonia secondary to her swallowing difficulties. She did have a modified barium swallow done last week that showed evidence of mild penetration but no obvious aspiration. 2. History of total gastrectomy in 1994 for recurrent peptic ulcer disease. 3. History of chronic obstructive pulmonary disease. 4. History of hypothyroidism. RECOMMENDATIONS: 1. Will obtain barium swallow to evaluate her symptoms further. 2. Continue with symptomatic and supportive care for the nausea and vomiting. 3. We will continue with Protonix and antiemetics. 4. Advance diet as tolerated. 5. No plans on any repeat endoscopic intervention as she just had an upper endoscopy in March of 2020 and we will follow with you closely. Thank you for this consultation. MMODL / IJN: [id number] /
[2020-07-08] MEDS: LORATADINE 10 MG TAB PO SCH (21:12)
[2020-07-08] MEDS: FERROUS SULFATE 325 MG TAB PO SCH (21:13)
[2020-07-08] MEDS: PANTOPRAZOLE 40 MG TABLET PO SCH (21:13)
[2020-07-08] MEDS: busPIRone HCl 10 MG TAB PO SCH (21:14)
[2020-07-08] MEDS: CHOLESTYRAMINE (WITH SUGAR) 4 GM PACKET PO SCH (21:14)
[2020-07-08] MEDS: MIRTAZAPINE 45 MG TABLET PO SCH (22:26)
[2020-07-09] MEDS: BUTALB/APAP/CAFF 50-325-40MG TAB PO PRN ×2 (00:47→08:03)
[2020-07-09] MEDS: SODIUM CHLORIDE 0.9% 1,000 ML IV SCH ×3 (02:56→22:59)
[2020-07-09] MEDS: MORPHINE SULFATE 4 MG/ML SYRINGE IV PRN ×4 (05:26→20:40)
[2020-07-09] MEDS: LEVOTHYROXINE 88 MCG TAB PO SCH (05:35)
--- NOTE | 2020-07-09 06:32 | CONS ---
CONSULTATION DATE OF SERVICE: 07/08/2020 REASON FOR CONSULTATION: Aspiration pneumonia. HISTORY OF PRESENT ILLNESS: The patient is a 75-year-old female recently admitted and treated at this facility for possible aspiration pneumonia. Subsequently discharged home on oral antibiotic. Patient presenting back to the hospital on July 15 for evaluation of nausea and vomiting that started the morning of presentation to the hospital and unable to keep anything down. The patient has been complaining of pain to the upper abdominal area, more of a dull aching to sharp, 5-6/10, no radiation. The patient denies having any diarrhea or constipation. Complaining of some shortness of breath and also has a cough but not bringing up any sputum. With these symptoms, the patient was evaluated by the physician. On arrival to the ER the patient was afebrile and no fever has been recorded since admission to the hospital. The patient is currently 97% on room air and no need for supplemental oxygen. She did have a white count of 12.3, repeat is 11.3, creatinine was mildly elevated at 1.72. Urine was negative. Case PCR was negative. The patient did have a chest x-ray with bilateral interstitial infiltrates. No change from recent x-ray. Patient subsequently has been admitted to the hospital. Infectious Disease was consulted for further management with concern for aspiration pneumonia. REVIEW OF SYSTEMS: Positive points have been mentioned in HPI. Rest of systems are negative. PAST MEDICAL HISTORY: Significant for asthma, DVT, peptic ulcer disease, total gastrectomy, chronic back pain, pancreatitis, migraine headaches. PAST SURGICAL HISTORY: Total gastrectomy, laminectomy, EGD. SOCIAL HISTORY: Denies smoking, drinking or drug use. FAMILY HISTORY: Father with history of coronary artery disease. Mother history of ovarian cancer. ALLERGIES: DUST, MOLD, PROLIA. MEDICATIONS: The patient is currently on , [place], Ventolin, Symbicort, Wellbutrin, BuSpar, Rocaltrol, Rocephin 1 g daily, Cymbalta, Lovenox, folic acid, Synthroid, Claritin, and Zofran. PHYSICAL EXAMINATION: Blood pressure 143/76, pulse of 96, temperature 98.3, she is 97% on room air. GENERAL DESCRIPTION: Patient is an elderly female lying in bed in no distress. HEENT: Examination shows no pallor or scleral icterus. Oral mucous membrane is dry. NECK: Trachea central, no thyromegaly. LUNGS: Unlabored breathing, decreased breath sounds at the bases. No wheeze or crackle. HEART: S1-S2, regular rate and rhythm. ABDOMEN: Soft, mildly tender. No guarding or rigidity. EXTREMITIES: No edema of the feet. SKIN: No rash or mass palpable. NEUROLOGICAL: Patient is awake, alert, oriented times three. Mood and affect normal. LABS: Hemoglobin 11.1, white count 11.3, BUN of 30, creatinine 1.59. Urine is negative. Chest x-ray report as mentioned above. DIAGNOSTIC IMPRESSION: Patient admitted to the hospital with intractable nausea and vomiting with concern for possible aspiration pneumonitis with recent treatment for as well. The patient has been seen by GI and a swallow evaluation has been ordered with a barium swallow, after completion if no conclusive results, may benefit from CT of abdomen and pelvis to rule out any intraabdominal pathology and cause for her vomiting. PLAN: 1. Await the barium swallow and may benefit from a CT abdomen and pelvis afterwards. 2. Will check a CRP and procalcitonin level and try to obtain a sputum. 3. Continue with empiric Rocephin a this point. 4. We will follow on clinical condition and further adjust medication if needed. Thank you for this consultation. Will follow this patient along with you. MMODL / IJN: [id number] /
[2020-07-09] MEDS ORDERED: PANTOPRAZOLE 40 MG TABLET PO SCH (07:30)
[2020-07-09] MEDS: POTASSIUM CHLORIDE ER 10 MEQ TAB.ER.PRT PO SCH ×3 (08:01→23:08)
[2020-07-09] MEDS: THIAMINE 100 MG TAB PO SCH (08:01)
[2020-07-09] MEDS: ENOXAPARIN 30 MG/0.3 ML SYRINGE SQ SCH (08:01)
[2020-07-09] MEDS: buPROPion XL 300 MG TAB.ER.24H PO SCH (08:01)
[2020-07-09] MEDS: FUROSEMIDE 20 MG TAB PO SCH (08:02)
[2020-07-09] MEDS: FERROUS SULFATE 325 MG TAB PO SCH ×2 (08:02→20:37)
[2020-07-09] MEDS: CHOLESTYRAMINE (WITH SUGAR) 4 GM PACKET PO SCH ×2 (08:02→20:37)
[2020-07-09] MEDS: DULoxetine HCL 60 MG CAPSULE.DR PO SCH (08:02)
[2020-07-09] MEDS: hydrOXYzine pamoate 25 MG CAP PO SCH ×3 (08:02→23:08)
[2020-07-09] MEDS: PANTOPRAZOLE 40 MG TABLET PO SCH ×2 (08:02→20:37)
[2020-07-09] MEDS: busPIRone HCl 10 MG TAB PO SCH ×2 (08:04→20:37)
[2020-07-09] MEDS: FOLIC ACID 1 MG TAB PO SCH (08:05)
[2020-07-09] MEDS: SYMBICORT 160-4.5 MCG INHALER INHALATION SCH ×2 (08:51→20:50)
[2020-07-09] MEDS ORDERED: buPROPion XL 300 MG TAB.ER.24H PO SCH (09:00)
[2020-07-09 09:17] LABS: Basophils # (A) 0.07 X 10*3/uL (0.00-0.10); Basophils % (A) 0.6 %; Eosinophils # (A) 0.41 X 10*3/uL (0.04-0.35); Eosinophils % (A) 3.5 %; HCT 30.7 % (37.2-46.3); HGB 9.5 g/dL (12.0-15.0); Lymphocytes # (A) 1.77 X 10*3/uL (0.90-5.00); Lymphocytes % (A) 14.9 %; MCH 28.6 pg (27.0-32.0); MCHC 30.9 g/dL (32.0-37.0); MCV 92.5 fL (80.0-97.0); Mean Platelet Volume 9.1 fL (9.5-12.2); Monocytes # (A) 0.92 X 10*3/uL (0.20-1.00); Monocytes % (A) 7.8 %; Neutrophils # (A) 8.59 X 10*3/uL (1.80-7.70); Neutrophils % (A) 72.5 %; Platelet Count 439 X 10*3/uL (140-440); RBC 3.32 X 10*6/uL (4.10-5.20); RDW 19.8 % (11.5-14.5); WBC 11.84 X 10*3/uL (4.50-10.00)
--- NOTE | 2020-07-09 11:01 | FL ---
EXAMINATION TYPE: FL barium swallow DATE OF EXAM: 07/09/2020 COMPARISON: None HISTORY: Nausea vomiting food getting stuck. History is that the patient had gastric resections for s tomach ulcers. TECHNIQUE: A single contrast esophagram study is performed. FINDINGS: Esophagus slightly prominent to the distal esophageal region. There is a large hiatal hernia present. There appears to be bowel loops communicating with the stomach. This may be prior Kacey-en-Y surgery. However, contrast does not pass beyond the level of the diaphragm. Note is made of abundant debris w ithin the distal esophagus and hiatal hernia during this exam. Patient stated she half a tuna fish [facility] at 5:00 AM. IMPRESSIONS: 1. Obstruction at the level of the diaphragm appears to be related to the gastric bypass at the level of the diaphragm. 2. Hiatal hernia of the residual post gastric resection. Contrast enters the bowel loop, possibly fro m a Kacey-en-Y but does not pass the level of the diaphragm. A [place] critical message alert has been initiated for Nandini Greene via the [place] [facility] on 07/09/2020 10:58 AM. This message alert has been sent to Nandini Greene vi a the preferences provided by the clinician for the receipt of Radiology Critical Findings. Message I D [id number].
[2020-07-09 11:58] VITALS: BMI 15.5
[2020-07-09 13:19] LABS: African American GFR (CKD) 31.8 (60.0-200.0); Albumin 3.4 g/dL (3.80-4.90); Anion Gap 9.3 mmol/L (4.00-12.00); BUN/Creat Ratio 17.22 Ratio (12.00-20.00); C Reactive Protein 2.9 mg/dL (0.0-0.8); Calcium 8.7 mg/dL (8.7-10.3); Carbon Dioxide 19.7 mmol/L (21.6-31.8); Globulin 1.7 g/dL (1.6-3.3); Non-African American GFR(CKD) 27.4 (60.0-200.0); Potassium 4.3 mmol/L (3.5-5.5); Total Bilirubin 0.1 mg/dL (0.2-1.2); Total Protein 5.1 g/dL (6.2-8.2)
--- NOTE | 2020-07-09 13:32 | P.GSCN ---
<Emily East - Last Filed: 07/09/20 13:10> History of Present Illness Consult date: 07/09/20 History of present illness: CHIEF COMPLAINT: Nausea and vomiting HISTORY OF PRESENT ILLNESS: This is a 75-year-old female with a known history of recurrent aspiration pneumonia, asthma, DVT, GERD, memory impairment, chronic kidney disease. She has a surgical history of partial gastrectomy for peptic ulcer disease completed in 1989. Then she had the rest of her stomach removed in 1994 due to his significant vomiting. Both surgeries were completed at [facility]. Patient denies any history of Kacey-en-Y her gastric bypass. Patient was just recently hospitalized for pneumonia on 07/04/2020. She reports having many hospitalizations for aspiration pneumonia over the last year. Patient states that she started to get sick on Thursday night with nausea and vomiting. She was unable to take her antibiotics that were prescribed for her pneumonia. She was unable to tolerate food. And therefore on Thursday she came into the ER for further evaluation and treatment. By that time be set the nausea and vomiting she was having epigastric pain and shortness of breath. She reports that the food feels that it gets stuck in her throat. When she drinks liquids she states that they just got right back out. When she tries to eat solid foods such as bread she feels that it gets stuck and therefore sometimes has to induce vomiting herself to get it dislodged. She has had difficulty maintaining weight. She has had issues with this for a while now. However, it has gotten worse. She states that she deals with dumping syndrome and continuously has issues with diarrhea. She denies any fever, chills or sweats. Patient had EGD completed on 04/19/[address] Turner which had shown total gastrectomy but no other pathology identified. No evidence of esophageal stricture or anastomotic stricture identified. Barium swallow study shows obstruction at the level of the diaphragm appears to be related to the gastric bypass at the level of the diaphragm. Hiatal hernia of the residual post gastric resection. Contrast enters the bowel loop, possibly from a Kacey-en-Y but does not pass the level of the diaphragm. PAST MEDICAL HISTORY: See list. PAST SURGICAL HISTORY: See list. MEDICATIONS: See list. ALLERGIES: See list. SOCIAL HISTORY: No illicit drug use. REVIEW OF SYSTEMS: CONSTITUTIONAL: Denies fever or chills. HEENT: Denies blurred vision, vision changes, or eye pain. Denies hemoptysis CARDIOVASCULAR: Denies chest pain or pressure. RESPIRATORY: No shortness of breath. GASTROINTESTINAL: See HPI for pertinent findings HEMATOLOGIC: Denies bleeding disorders. GENITOURINARY: Denies any blood in urine or increased urinary frequency. SKIN: Denies pruitis. Denies rash. PHYSICAL EXAM: VITAL SIGNS: Reviewed GENERAL: No acute distress. Patient is underweight HEENT: No sclera icterus. Extraocular movements grossly intact. Moist buccal mucosa. Head is atraumatic, normocephalic. No nasal drainage. ABDOMEN: Soft. Nondistended. Tenderness with palpation of the epigastric area. Patient does have an old abdominal scar down the midline of her abdomen NEUROLOGIC: Alert and oriented. Cranial nerves II through XII grossly intact. LABORATORY DATA: WBC 11.8 for Hgb 9.5 platelets 439 Creatinine 1.59 lipase 74 AST ALT normal alk phos 273 IMAGING: Barium swallow study shows obstruction at the level of the diaphragm appears to be related to the gastric bypass at the level of the diaphragm. Hiatal hernia of the residual post gastric resection. Contrast enters the bowel loop, possibly from a Kacey-en-Y but does not pass the level of the diaphragm. ASSESSMENT: 1. Obstruction at the level of the diaphragm noted on barium swallow study 2. Prior history of gastrectomy for peptic ulcer disease completed at [facility]. First surgery was in 1989 and second surgery 1994 3. Dysphagia 4. Nausea and vomiting PLAN: -Recommend to transfer patient to a tertiary care center with thoracic surgery consult possibly at [facility] where patient has had her prior surgeries -Keep patient nothing by mouth -Continue supportive care Thank you for this consultation Physician Mail Room Clerk note has been reviewed by physician. Signing provider agrees with the documented findings, assessment, and plan of care. 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 Fell in May 2019-FX HIP- LAID ON FLOOR FOR 3 DAYS hit back of head. States had short term memory problems until admit in March, discovered hemoglobin was low (anemia), when corrected memory has improved. History of Any Multi-Drug Resistant Organisms: None Reported Past Surgical History: Back Surgery, Bowel Resection Additional Past Surgical History / Comment(s): LOWER BACK SURGERY lamenectomy/discetomy then had a revison of that sx. 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, nasal sx d/t broken nose, colonoscopy/egd, PAIN CLINIC PROCEDURES Past Anesthesia/Blood Transfusion Reactions: No Reported Reaction Additional Past Anesthesia/Blood Transfusion Reaction / Comm: PT RECIEVED BLOOD TRANSFUSIONS AFTER STOMACH SURGERY Past Psychological History: Anxiety, Depression, Panic Disorder Additional Psychological History / Comment(s): PT LIVES AT HOME ALONE. PT IS ABLE TO DRIVE A CAR. 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 Smoking Status: Never smoker Past Alcohol Use History: None Reported Past Drug Use History: None Reported - Past Family History Father Family Medical History: Cancer, Coronary Artery Disease (CAD) Additional Family Medical History / Comment(s): FATHER HAD BLADDER AND KIDNEY CANCER. FATHER HAD TB WHEN HE WAS A CHILD .FATHER AT AGE 87. Mother Family Medical History: Cancer Additional Family Medical History / Comment(s): MOTHER AT AGE 58 OF OVARIAN CANCER. Medications and Allergies Home Medications Medication Instructions Recorded Confirmed Type DULoxetine HCL [Cymbalta] 60 mg PO DAILY 09/17/13 07/07/20 History Ferrous Sulfate [Iron (65 MG 325 mg PO BID 11/06/15 07/07/20 History Elemental)] buPROPion HCL [Wellbutrin XL] 300 mg PO DAILY 11/06/15 07/07/20 History Levocetirizine Dihydrochloride 5 mg PO HS 05/31/17 07/07/20 History [Xyzal] Levothyroxine Sodium [Synthroid] 88 mcg PO DAILY 06/07/19 07/07/20 History calcitrioL [Calcitriol] 1 mcg PO MOWEFR 06/07/19 07/07/20 History Albuterol Inhaler [Ventolin Hfa 1 puff INHALATION RT-Q6H PRN 10/05/19 07/07/20 History Inhaler] busPIRone HCL [Buspar] 30 mg PO BID 04/14/20 07/07/20 History Cholestyramine (with Sugar) 4 gm PO BID 04/18/20 07/07/20 History [Cholestyramine Powder] HYDROcodone/APAP 5-325MG [[place] 1 tab PO Q6H PRN 04/18/20 07/07/20 History 5-325] Omeprazole [PriLOSEC] 20 mg PO DAILY 04/18/20 07/07/20 History Potassium Chloride ER [K-Dur 10] 10 meq PO TID 04/18/20 07/07/20 History Thiamine [Vitamin B-1] 100 mg PO DAILY 04/18/20 07/07/20 History hydrOXYzine pamoate [hydrOXYzine 25 mg PO TID 04/18/20 07/07/20 History PAMOATE] Pantoprazole Sodium [Protonix] 40 mg PO BID 30 Days #60 tablet. 04/27/20 07/07/20 Rx Budesonide/Formoterol Fumarate 2 puff INHALATION RT-BID 06/30/20 07/07/20 History [Symbicort 160-4.5 Mcg Inhaler] Butalb/APAP/Caff 50-325-40Mg 1 tab PO Q4H PRN 06/30/20 07/07/20 History [Fioricet 50-325-40] Fluticasone Nasal [place] [Flonase 1 spray EA NOSTRIL DAILY PRN 06/30/20 07/07/20 History Nasal [place]] Folic Acid 0.8 mg PO DAILY 06/30/20 07/07/20 History Furosemide [Lasix] 20 mg PO DAILY 06/30/20 07/07/20 History Mirtazapine 45 mg PO HS 06/30/20 07/07/20 History SUMAtriptan SUCCINATE [Imitrex] 50 mg PO DAILY PRN 06/30/20 07/07/20 History fentaNYL 75MCG/HR PATCH [Duragesic 1 patch TRANSDERM Q72H 06/30/20 07/07/20 Hist ory 75MCG/HR] Amoxicillin/Potassium Clav 1 tab PO Q12HR 7 Days #2 tab 07/03/20 07/07/20 Rx [Augmentin 875-125 Tablet] guaiFENesin [Mucinex] 600 mg PO Q12HR PRN tablet.er 07/03/20 07/07/20 Rx Allergies Allergy/AdvReac Type Severity Reaction Status Date / Time denosumab [From Prolia] Allergy SEVERE Verified 07/07/20 23:26 CALCIUM LOSS Milk Containing Products AdvReac Diarrhea Verified 07/08/20 00:19 [Dairy] DUST Allergy Itching Uncoded 07/07/20 23:26 MOLDS Allergy Itching Uncoded 07/07/20 23:26 Surgical - Exam Vital Signs Temp Pulse Resp BP Pulse Ox 97.7 F 125 H 16 160/99 97 07/07/20 20:49 07/07/20 20:49 07/07/20 20:49 07/07/20 20:49 07/07/20 20:49 Results - Labs 07/09/20 04:54 07/08/20 05:35 Abnormal Lab Results - Last 24 Hours (Table) 07/08/20 07/09/20 07/09/20 Range/Units 05:35 04:54 04:54 WBC 11.84 H (4.50-10.00) X 10*3/uL RBC 3.32 L (4.10-5.20) X 10*6/uL Hgb 9.5 L (12.0-15.0) g/dL Hct 30.7 L (37.2-46.3) % MCHC 30.9 L (32.0-37.0) g/dL RDW 19.8 H (11.5-14.5) % MPV 9.1 L (9.5-12.2) fL Immature Gran # 0.08 H (0.00-0.04) X 10*3/uL Neutrophils # 8.59 H (1.80-7.70) X 10*3/uL Eosinophils # 0.41 H (0.04-0.35) X 10*3/uL Procalcitonin 0.15 H 0.13 H (0.02-0.09) ng/mL <Nathan Guadalupe - Last Filed: 07/10/20 12:05> History of Present Illness History of present illness: As above. Spoke with Dr. Desir. We'll proceed with upper endoscopy. Still anticipate need for tertiary care evaluation. Surgical - Exam Vital Signs Temp Pulse Resp BP Pulse Ox 97.7 F 125 H 16 160/99 97 07/07/20 20:49 07/07/20 20:49 07/07/20 20:49 07/07/20 20:49 07/07/20 20:49 Results - Labs 07/10/20 04:07 07/10/20 04:07 Abnormal Lab Results - Last 24 Hours (Table) 07/09/20 07/09/20 07/10/20 Range/Units 04:54 04:54 04:07 WBC (4.50-10.00) X 10*3/uL RBC (4.10-5.20) X 10*6/uL Hgb (12.0-15.0) g/dL Hct (37.2-46.3) % MCHC (32.0-37.0) g/dL RDW (11.5-14.5) % MPV (9.5-12.2) fL Immature Gran # (0.00-0.04) X 10*3/uL Neutrophils # (1.80-7.70) X 10*3/uL Monocytes # (0.20-1.00) X 10*3/uL Chloride 113 H 110 H (96-109) mmol/L Carbon Dioxide 19.7 L 20.8 L (21.6-31.8) mmol/L BUN 31.0 H (9.0-27.0) mg/dL Creatinine 1.8 H (0.6-1.5) mg/dL Est GFR (CKD-EPI)AfAm 31.8 L 39.6 L (60.0-200.0) Est GFR (CKD-EPI)NonAf 27.4 L 34.2 L (60.0-200.0) Glucose 117 H (70-110) mg/dL Ionized Calcium Tomas 5.5 H (4.5-5.3) mg/dL Total Bilirubin 0.1 L 0.2 L (0.2-1.2) mg/dL Alkaline Phosphatase 276 H 272 H (41-126) U/L C-Reactive Protein 2.9 H (0.0-0.8) mg/dL Total Protein 5.1 L 5.2 L (6.2-8.2) g/dL Albumin 3.40 L 3.60 L (3.80-4.90) g/dL Triglycerides 191.0 H (0.0-149.0) mg/dL Procalcitonin 0.13 H (0.02-0.09) ng/mL 07/10/20 Range/Units 04:07 WBC 11.10 H (4.50-10.00) X 10*3/uL RBC 3.55 L (4.10-5.20) X 10*6/uL Hgb 10.0 L (12.0-15.0) g/dL Hct 33.1 L (37.2-46.3) % MCHC 30.2 L (32.0-37.0) g/dL RDW 19.7 H (11.5-14.5) % MPV 8.8 L (9.5-12.2) fL Immature Gran # 0.06 H (0.00-0.04) X 10*3/uL Neutrophils # 7.94 H (1.80-7.70) X 10*3/uL Monocytes # 1.08 H (0.20-1.00) X 10*3/uL Chloride (96-109) mmol/L Carbon Dioxide (21.6-31.8) mmol/L BUN (9.0-27.0) mg/dL Creatinine (0.6-1.5) mg/dL Est GFR (CKD-EPI)AfAm (60.0-200.0) Est GFR (CKD-EPI)NonAf (60.0-200.0) Glucose (70-110) mg/dL Ionized Calcium Tomas (4.5-5.3) mg/dL Total Bilirubin (0.2-1.2) mg/dL Alkaline Phosphatase (41-126) U/L C-Reactive Protein (0.0-0.8) mg/dL Total Protein (6.2-8.2) g/dL Albumin (3.80-4.90) g/dL Triglycerides (0.0-149.0) mg/dL Procalcitonin (0.02-0.09) ng/mL Diabetes panel 07/09/20 07/10/20 Range/Units 04:54 04:07 Sodium 142 141 (135-145) mmol/L Potassium 4.3 3.9 (3.5-5.5) mmol/L Chloride 113 H 110 H (96-109) mmol/L Carbon Dioxide 19.7 L 20.8 L (21.6-31.8) mmol/L BUN 31.0 H 24.0 (9.0-27.0) mg/dL Creatinine 1.8 H 1.5 (0.6-1.5) mg/dL Glucose 85 117 H (70-110) mg/dL Calcium 8.7 8.7 (8.7-10.3) mg/dL AST 17 19 (13-35) U/L ALT 17 16 (8-44) U/L Alkaline Phosphatase 276 H 272 H (41-126) U/L Total Protein 5.1 L 5.2 L (6.2-8.2) g/dL Albumin 3.40 L 3.60 L (3.80-4.90) g/dL Triglycerides 191.0 H (0.0-149.0) mg/dL Calcium panel 07/09/20 07/10/20 Range/Units 04:54 04:07 Calcium 8.7 8.7 (8.7-10.3) mg/dL Ionized Calcium Tomas 5.5 H (4.5-5.3) mg/dL Phosphorus 3.6 (2.4-5.1) mg/dL Albumin 3.40 L 3.60 L (3.80-4.90) g/dL Pituitary panel 07/09/20 07/10/20 Range/Units 04:54 04:07 Sodium 142 141 (135-145) mmol/L Potassium 4.3 3.9 (3.5-5.5) mmol/L Chloride 113 H 110 H (96-109) mmol/L Carbon Dioxide 19.7 L 20.8 L (21.6-31.8) mmol/L BUN 31.0 H 24.0 (9.0-27.0) mg/dL Creatinine 1.8 H 1.5 (0.6-1.5) mg/dL Glucose 85 117 H (70-110) mg/dL Calcium 8.7 8.7 (8.7-10.3) mg/dL Adrenal panel 07/09/20 07/10/20 Range/Units 04:54 04:07 Sodium 142 141 (135-145) mmol/L Potassium 4.3 3.9 (3.5-5.5) mmol/L Chloride 113 H 110 H (96-109) mmol/L Carbon Dioxide 19.7 L 20.8 L (21.6-31.8) mmol/L BUN 31.0 H 24.0 (9.0-27.0) mg/dL Creatinine 1.8 H 1.5 (0.6-1.5) mg/dL Glucose 85 117 H (70-110) mg/dL Calcium 8.7 8.7 (8.7-10.3) mg/dL Total Bilirubin 0.1 L 0.2 L (0.2-1.2) mg/dL AST 17 19 (13-35) U/L ALT 17 16 (8-44) U/L Alkaline Phosphatase 276 H 272 H (41-126) U/L Total Protein 5.1 L 5.2 L (6.2-8.2) g/dL Albumin 3.40 L 3.60 L (3.80-4.90) g/dL
--- NOTE | 2020-07-09 15:27 | P.PN ---
Subjective Progress Note Date: 07/09/20 Principal diagnosis: Recurrent nausea and vomiting Patient was seen and examined sitting up in bed. She completed her barium swallow which showed obstruction at the level of the diaphragm appears to be related to gastric bypass at the level of the diaphragm. Hiatal hernia of the residual post gastric resection. Contrast enters the bowel loop possibly from a Kacey-en-Y but does not pass the level of the diaphragm. The patient states she has nausea and vomiting daily. She has had multiple hospitalizations related to aspiration pneumonia. She is denying any abdominal pain, however states usually has vomiting after eating or drinking. She will remain nothing by mouth today. Objective - Vital Signs Vital signs: Vital Signs Temp 97.8 F 07/09/20 05:00 Pulse 88 07/09/20 05:00 Resp 16 07/09/20 05:00 BP 113/68 07/09/20 05:00 Pulse Ox 99 07/09/20 05:00 Intake & Output 07/08/20 07/09/20 07/09/20 18:59 06:59 18:59 Intake Total 360 590 Balance 360 590 Intake: Oral 360 590 Other: Voiding Method Bedside Commode Toilet Toilet # Voids 3 2 1 - Exam General appearance: The patient is alert, oriented, appears in no acute distress. Thin. HET: Head is normocephalic and atraumatic. Conjunctiva pink. Sclera anicteric. Neck: Supple without lymphadenopathy. Abdomen: Soft, thin, nontender, nondistended with bowel sounds. No guarding or rigidity. Extremities: Normal skin color and turgor. No pedal edema Skin: No rashes, no jaundice Neurological: No focal deficits. Alert and oriented 3. - Labs CBC & Chem 7: 07/09/20 04:54 07/09/20 04:54 Labs: Abnormal Lab Results - Last 24 Hours (Table) 07/08/20 07/09/20 Range/Units 05:35 04:54 WBC 11.84 H (4.50-10.00) X 10*3/uL RBC 3.32 L (4.10-5.20) X 10*6/uL Hgb 9.5 L (12.0-15.0) g/dL Hct 30.7 L (37.2-46.3) % MCHC 30.9 L (32.0-37.0) g/dL RDW 19.8 H (11.5-14.5) % MPV 9.1 L (9.5-12.2) fL Immature Gran # 0.08 H (0.00-0.04) X 10*3/uL Neutrophils # 8.59 H (1.80-7.70) X 10*3/uL Eosinophils # 0.41 H (0.04-0.35) X 10*3/uL Procalcitonin 0.15 H (0.02-0.09) ng/mL Assessment and Plan (1) Nausea and vomiting Narrative/Plan: This is a 75-year-old white female who presented to the hospital with intractable nausea and vomiting associated with epigastric pain for last few days duration. She has been having these episodes on and off for several times over the last 3 years duration. She had an upper endoscopy by Dr. Meyer that was done in March 2020 that showed normal-appearing esophagus with no evidence of esophagitis or esophageal stricture. There is evidence of total gastrectomy and there was no anastomotic stricture. She is also complaining of dysphagia to solids and feels that she has been having aspiration pneumonia se condary to her swallowing difficulties. She did have a modified barium swallow done last week that showed evidence of mild penetration but no obvious aspiration. Current Visit: Yes Status: Acute Code(s): R11.2 - NAUSEA WITH VOMITING, UNSPECIFIED SNOMED Code(s): 80302847 (2) History of gastrectomy Narrative/Plan: She has a history of total gastrectomy in 1994 for recurrent peptic ulcer disease Current Visit: Yes Status: Acute Code(s): Z90.3 - ACQUIRED ABSENCE OF STOM ACH [PART OF] SNOMED Code(s): 717022610 Plan: 1. Barium swallow ordered and reviewed 2. Consult surgical services 3. Continue Protonix as ordered 4. Continue antiemetics as needed 5. Diet per surgical service recommendations 6. No plans for repeat endoscopic intervention at this time as patient recently had upper endoscopy in March 2020 Thank you for this consultation we will continue to follow Dr. Turner I agree with the dictator's note, documented as a scribe by Nandini Perez.
--- NOTE | 2020-07-09 15:29 | P.PN ---
Subjective Progress Note Date: 07/09/20 75-year-old female well known to us. She has a long-standing history of COPD/asthma, and was recently discharged from the hospital on Thursday afternoon, and readmitted to the hospital last night. She came into the emergency department complaining of nausea, vomiting, and diarrhea. She blames it on the antibiotics that she was given. She states that she was not able to keep anything down. On her previous admission, she was admitted with COPD exacerbation and pneumonia. She was discharged home on antibiotics. She did okay initially, but over the last couple days, she had the nausea, and vomiting, as well as diarrhea. She also complains of headache. She denies any trauma. There is no chest pain or chest discomfort. She states that her breathing is pre-much at baseline. She denies vomiting up blood, and she denies any blood in her stools or melanotic stools. Her primary care physician is Dr. Eli. Her medical history includes chronic bronchial asthma, DVT, gastroesophageal reflux disease, dementia, osteoarthritis, migraine cephalgia, pancreatitis, TIA, and spinal stenosis. White count was 11.3, hemoglobin 11, hematocrit 35.1, and platelet count 461,000. PT, INR, and PTT were all normal. Sodium 141, potassium 3.5, chloride 112, CO2 17, anion gap 12, BUN 30, and creatinine 1.59. His electrolytes are consistent with a mild non-anion gap metabolic acidosis. Amylase and lipase were normal. Urine was negative. Chest x-ray, that was compared to a chest x-ray done on July 01, shows bilateral pulmonary infiltrates, and are unchanged. On today's evaluation of 07/09/2020, the patient remains nothing by mouth. The patient is being treated for bilateral pneumonia. The patient was also found to have an obstruction at the level of the diaphragm and this was noted by the barium swallow. General surgeries on the case. The patient has undergone a previous gastrectomy for peptic ulcer disease and [facility]. As such, based on general surgeries recommendation, it was advised for this patient to go back to [facility] regarding this issue. A PICC line will be inserted and the patient will be given TPN for nutritional support. She has und ergone a previous Kacey-en-Y gastric bypass surgery. Meanwhile, the patient is currently on antibiotics and she is currently receiving Rocephin 1 g every 24 hours. The patient is currently on room air oxygen. Pulse ox is around 97%. COVID 19 testing was negative. Also noted that procalcitonin level was low on 2 separate occasions. Objective - Vital Signs Vital signs: Vital Signs Temp 98.1 F 07/09/20 13:50 Pulse 95 07/09/20 13:50 Resp 13 07/09/20 13:50 BP 122/69 07/09/20 13:50 Pulse Ox 96 07/09/20 13:50 Intake & Output 07/08/20 07/09/20 07/09/20 18:59 06:59 18:59 Intake Total 360 590 Balance 360 590 Weight 38.555 kg Intake: Oral 360 590 Other: Voiding Method Bedside Commode Toilet Toilet # Voids 3 2 1 - Exam No acute distress, oriented 3. No respiratory difficulty. Not on any supplemental oxygen. HEENT examination is grossly unremarkable. Mucous membranes are moist. No oral lesions. Neck supple. Full range of motion. No adenopathy thyromegaly or neck vein distention. Cardiovascular examination reveals regular rhythm rate. S1-S2 normal. No S3 or S4. No discernible murmur noted. Heart rate 98 bpm. Lungs reveal minimal bilateral rhonchi. No wheezes or crackles. Breath sounds were equal. Abdomen soft bowel sounds are heard. No masses or tenderness. Extremities are intact. No cyanosis clubbing or edema. Skin is without rash or lesion. Neurologic examination is brief but nonfocal. - Labs CBC & Chem 7: 07/09/20 04:54 07/09/20 04:54 Labs: Abnormal Lab Results - Last 24 Hours (Table) 07/08/20 07/09/20 07/09/20 Range/Units 05:35 04:54 04:54 WBC 11.84 H (4.50-10.00) X 10*3/uL RBC 3.32 L (4.10-5.20) X 10*6/uL Hgb 9.5 L (12.0-15.0) g/dL Hct 30.7 L (37.2-46.3) % MCHC 30.9 L (32.0-37.0) g/dL RDW 19.8 H (11.5-14.5) % MPV 9.1 L (9.5-12.2) fL Immature Gran # 0.08 H (0.00-0.04) X 10*3/uL Neutrophils # 8.59 H (1.80-7.70) X 10*3/uL Eosinophils # 0.41 H (0.04-0.35) X 10*3/uL Chloride 113 H (96-109) mmol/L Carbon Dioxide 19.7 L (21.6-31.8) mmol/L BUN 31.0 H (9.0-27.0) mg/dL Creatinine 1.8 H (0.6-1.5) mg/dL Est GFR (CKD-EPI)AfAm 31.8 L (60.0-200.0) Est GFR (CKD-EPI)NonAf 27.4 L (60.0-200.0) Total Bilirubin 0.1 L (0.2-1.2) mg/dL Alkaline Phosphatase 276 H (41-126) U/L C-Reactive Protein 2.9 H (0.0-0.8) mg/dL Total Protein 5.1 L (6.2-8.2) g/dL Albumin 3.40 L (3.80-4.90) g/dL Procalcitonin 0.15 H (0.02-0.09) ng/mL 07/09/20 Range/Units 04:54 WBC (4.50-10.00) X 10*3/uL RBC (4.10-5.20) X 10*6/uL Hgb (12.0-15.0) g/dL Hct (37.2-46.3) % MCHC (32.0-37.0) g/dL RDW (11.5-14.5) % MPV (9.5-12.2) fL Immature Gran # (0.00-0.04) X 10*3/uL Neutrophils # (1.80-7.70) X 10*3/uL Eosinophils # (0.04-0.35) X 10*3/uL Chloride (96-109) mmol/L Carbon Dioxide (21.6-31.8) mmol/L BUN (9.0-27.0) mg/dL Creatinine (0.6-1.5) mg/dL Est GFR (CKD-EPI)AfAm (60.0-200.0) Est GFR (CKD-EPI)NonAf (60.0-200.0) Total Bilirubin (0.2-1.2) mg/dL Alkaline Phosphatase (41-126) U/L C-Reactive Protein (0.0-0.8) mg/dL Total Protein (6.2-8.2) g/dL Albumin (3.80-4.90) g/dL Procalcitonin 0.13 H (0.02-0.09) ng/mL Assessment and Plan Plan: 1 GI obstruction and the patient has an obstruction at the level of the diaphragm based on the barium swallow. The patient is unable to eat and the patient had Nausea, vomiting, and diarrhea, and the patient has had a previous h istory of Kacey-en-Y gastric bypass surgery at [facility] and the patient was advised to go back [facility] regarding this issue. She is currently nothing by mouth. He can will be initiated. 2 bilateral pneumonia, with a stable respiratory status, and an unchanged chest x-ray. 3 History of chronic bronchial asthma. She also has a case of severe tracheal bronchomalacia 4 General medical debility. 5 History of chronic anemia. 6 History of hypothyroidism. 7 History of hyperlipidemia. 8 History of migraine cephalgia. 9 History of deep venous thrombosis. 10 History of gastroesophageal reflux disease. 11 History of dementia. 12 Multiple other medical problems and comorbidities. PLAN Switch this patient to IV Zosyn Keep the patient nothing by mouth Insert a PICC line TPN for nutritional support We'll Transfer for This GI Obstruction to [facility]
[2020-07-09] MEDS: PIPERACILLIN-TAZOBACTAM 3.375 GM in SODIUM CHLORIDE 0.9% 100 ML IVPB SCH (16:31)
--- NOTE | 2020-07-09 17:25 | P.PN ---
Subjective Progress Note Date: 07/09/20 This is a 75-year-old female patient who presents to the ER with complaints of nausea and vomiting. Patient was recently discharged and treated for pneumonia. Patient reports that she was unable to take her antibiotic without vomiting which prompted her to come the ER for further evaluation. Patient has a past medical history of asthma, DVT, GERD, memory impairment, pancreatitis and chronic pain. Head CT was performed in ER showing negative unenhanced head CT scan no change. Chest x-ray performed showing bilateral pulmonary infiltrates similar to recent exam failure. Started on IV Rocephin for pneumonia and pulmonary service is consulted. GI service is consulted for the nausea Protonix and Zofran ordered. Creatinine 1.59 and bun 30 this does appear on patient's baseline. At this time patient is resting comfortably in bed states she has been able to keep down sara maximino. Patient denies chest pain. Patient does report some wheezing and coughing. Patient denies any urinary burning or frequency. Patient denies any diarrhea On 07/09/2020 patient was seen and examined on the medical floor she is alert and oriented 3 in no apparent distress she is complaining of nausea and vom iting otherwise she denies any complaints at this time barium swallow evaluation revealed evidence of obstruction at the liver of diaphragmatic surgical consultation requested and the recommendation for surgery is to transfer patient to [facility] where she had her previous gastrectomy otherwise patient is doing well there is no fever or chills no headache or dizziness no chest pain no abdominal pain no diarrhea no blood in the stools no burning with urination no frequency or urgency and no hematuria patient is having recurrent episodes of vomiting and is unable to keep any food down at this time will ask for a PICC line placement patient will be started on TPN transfer to [facility] was initiated Objective - Vital Signs Vital signs: Vital Signs Temp 97.8 F 07/09/20 05:00 Pulse 88 07/09/20 05:00 Resp 16 07/09/20 05:00 BP 113/68 07/09/20 05:00 Pulse Ox 99 07/09/20 05:00 Intake & Output 07/08/20 07/09/20 07/09/20 18:59 06:59 18:59 Intake Total 360 590 Balance 360 590 Weight 38.555 kg Intake: Oral 360 590 Other: Voiding Method Bedside Commode Toilet Toilet # Voids 3 2 1 - Exam in general patient is alert and oriented 3 in no apparent distress HEENT head normocephalic and atraumatic Chest supple no JVD no goiter no lymphadenopathy Chest exam reveals a few scattered crackles bilaterally no wheezing Cardiac exam reveals regular heart sounds no gallops no murmurs Abdomen is soft nontender no organomegaly with normal bowel sounds Extremity exam reveals no edema no cyanosis or clubbing - Labs CBC & Chem 7: 07/09/20 04:54 07/09/20 04:54 Labs: Abnormal Lab Results - Last 24 Hours (Table) 07/08/20 07/09/20 07/09/20 Range/Units 05:35 04:54 04:54 WBC 11.84 H (4.50-10.00) X 10*3/uL RBC 3.32 L (4.10-5.20) X 10*6/uL Hgb 9.5 L (12.0-15.0) g/dL Hct 30.7 L (37.2-46.3) % MCHC 30.9 L (32.0-37.0) g/dL RDW 19.8 H (11.5-14.5) % MPV 9.1 L (9.5-12.2) fL Immature Gran # 0.08 H (0.00-0.04) X 10*3/uL Neutrophils # 8.59 H (1.80-7.70) X 10*3/uL Eosinophils # 0.41 H (0.04-0.35) X 10*3/uL Chloride 113 H (96-109) mmol/L Carbon Dioxide 19.7 L (21.6-31.8) mmol/L BUN 31.0 H (9.0-27.0) mg/dL Creatinine 1.8 H (0.6-1.5) mg/dL Est GFR (CKD-EPI)AfAm 31.8 L (60.0-200.0) Est GFR (CKD-EPI)NonAf 27.4 L (60.0-200.0) Total Bilirubin 0.1 L (0.2-1.2) mg/dL Alkaline Phosphatase 276 H (41-126) U/L C-Reactive Protein 2.9 H (0.0-0.8) mg/dL Total Protein 5.1 L (6.2-8.2) g/dL Albumin 3.40 L (3.80-4.90) g/dL Procalcitonin 0.15 H (0.02-0.09) ng/mL 07/09/20 Range/Units 04:54 WBC (4.50-10.00) X 10*3/uL RBC (4.10-5.20) X 10*6/uL Hgb (12.0-15.0) g/dL Hct (37.2-46.3) % MCHC (32.0-37.0) g/dL RDW (11.5-14.5) % MPV (9.5-12.2) fL Immature Gran # (0.00-0.04) X 10*3/uL Neutrophils # (1.80-7.70) X 10*3/uL Eosinophils # (0.04-0.35) X 10*3/uL Chloride (96-109) mmol/L Carbon Dioxide (21.6-31.8) mmol/L BUN (9.0-27.0) mg/dL Creatinine (0.6-1.5) mg/dL Est GFR (CKD-EPI)AfAm (60.0-200.0) Est GFR (CKD-EPI)NonAf (60.0-200.0) Total Bilirubin (0.2-1.2) mg/dL Alkaline Phosphatase (41-126) U/L C-Reactive Protein (0.0-0.8) mg/dL Total Protein (6.2-8.2) g/dL Albumin (3.80-4.90) g/dL Procalcitonin 0.13 H (0.02-0.09) ng/mL Assessment and Plan Assessment: 1. Intractable vomiting. Zofran ordered. GI service is consulted. Amylase and lipase ordered, she was found to have an obstruction at the level of the diaphragm, patient will be started on TPN today as she is having constant vomiting, recommendation for surgery is to transfer to [facility] where she had her previous gastrectomy, transfer was initiated today. 2. Pneumonia. Patient recently discharged on antibiotics. Pulmonary services reconsulted and patient started on Rocephin. We'll also consult infectious disease due to possible aspiration 3. History of peptic ulcer disease 4. History of pancreatitis 5. History of gastrectomy 6. Chronic kidney disease stage III. Labs do appear on baseline 7. Chronic pain. Patient maintained on fentanyl patch DVT prophylaxis Lovenox. GI prophylaxis Protonix GI, pulmonary and infectious disease service is consulted Rocephin for IV antibiotics Amylase lipase levels ordered
[2020-07-09] MEDS: MIRTAZAPINE 45 MG TABLET PO SCH (20:37)
[2020-07-09] MEDS: LORATADINE 10 MG TAB PO SCH (20:37)
[2020-07-09] MEDS: ONDANSETRON 4 MG/2 ML VIAL IVP PRN (20:40)
[2020-07-10] MEDS: MORPHINE SULFATE 4 MG/ML SYRINGE IV PRN ×3 (00:47→10:21)
--- NOTE | 2020-07-10 01:13 | PN ---
PROGRESS NOTE DATE OF SERVICE: 07/09/2020 REASON FOR FOLLOWUP: Aspiration pneumonia. INTERVAL HISTORY: The patient is currently afebrile. The patient is breathing slightly comfortably. The patient denies having any chest pain or shortness of breath. Did have a cough, not bringing up any sputum. No nausea, no vomiting. No abdominal pain. No diarrhea. PHYSICAL EXAMINATION: Blood pressure 109/69 with a pulse of 95, temperature of 98.5. She is 95% on room air. General description is an elderly female lying in bed in no distress. Respiratory system: Unlabored breathing, decreased breath sounds in the base, with no wheeze. Heart S1, S2. Regular rate and rhythm. ABDOMEN: Soft, no tenderness. LABS: Hemoglobin 9.5, white count 11.5. BUN of 31, creatinine 1.8. DIAGNOSTIC IMPRESSION AND PLAN: Patient with recurrent vomiting likely secondary to gastric outlet obstruction as seen on the barium swallow for which General Surgery has been consulted. Patient currently covered with Zosyn to continue while monitoring clinical course closely. Continue supportive care. MMODL / IJN: [id number] /
[2020-07-10] MEDS: PIPERACILLIN-TAZOBACTAM 3.375 GM in SODIUM CHLORIDE 0.9% 100 ML IVPB SCH ×2 (04:32→15:29)
[2020-07-10 05:08] LABS: Ionized Calcium 5.5 mg/dL (4.5-5.3)
[2020-07-10] MEDS: LEVOTHYROXINE 88 MCG TAB PO SCH (05:48)
[2020-07-10] MEDS: SYMBICORT 160-4.5 MCG INHALER INHALATION SCH ×2 (07:16→20:44)
[2020-07-10 08:36] LABS: Basophils # (A) 0.06 X 10*3/uL (0.00-0.10); Basophils % (A) 0.5 %; Eosinophils # (A) 0.33 X 10*3/uL (0.04-0.35); HCT 33.1 % (37.2-46.3); Lymphocytes # (A) 1.63 X 10*3/uL (0.90-5.00); Lymphocytes % (A) 14.7 %; MCH 28.2 pg (27.0-32.0); MCHC 30.2 g/dL (32.0-37.0); MCV 93.2 fL (80.0-97.0); Mean Platelet Volume 8.8 fL (9.5-12.2); Monocytes # (A) 1.08 X 10*3/uL (0.20-1.00); Monocytes % (A) 9.7 %; Neutrophils # (A) 7.94 X 10*3/uL (1.80-7.70); Neutrophils % (A) 71.6 %; Platelet Count 404 X 10*3/uL (140-440); RBC 3.55 X 10*6/uL (4.10-5.20); RDW 19.7 % (11.5-14.5)
[2020-07-10] MEDS: ENOXAPARIN 30 MG/0.3 ML SYRINGE SQ SCH (08:38)
[2020-07-10] MEDS: CHOLESTYRAMINE (WITH SUGAR) 4 GM PACKET PO SCH ×2 (09:00→19:43)
[2020-07-10] MEDS: DULoxetine HCL 60 MG CAPSULE.DR PO SCH (09:00)
[2020-07-10] MEDS: FOLIC ACID 1 MG TAB PO SCH (09:00)
[2020-07-10] MEDS: buPROPion XL 300 MG TAB.ER.24H PO SCH (09:00)
[2020-07-10] MEDS: busPIRone HCl 10 MG TAB PO SCH ×2 (09:00→19:42)
[2020-07-10] MEDS: hydrOXYzine pamoate 25 MG CAP PO SCH ×3 (09:00→21:35)
[2020-07-10] MEDS: FUROSEMIDE 20 MG TAB PO SCH (09:00)
[2020-07-10] MEDS: PANTOPRAZOLE 40 MG TABLET PO SCH ×2 (09:00→19:42)
[2020-07-10] MEDS: FERROUS SULFATE 325 MG TAB PO SCH ×2 (09:00→19:43)
[2020-07-10] MEDS: THIAMINE 100 MG TAB PO SCH (09:01)
[2020-07-10] MEDS: POTASSIUM CHLORIDE ER 10 MEQ TAB.ER.PRT PO SCH ×3 (09:01→21:34)
[2020-07-10] MEDS ORDERED: LIDOCAINE 1% INJ 10MG/ML (20 ML MDV) SQ ONE (09:05)
--- NOTE | 2020-07-10 09:20 | IR ---
PICC LINE PLACEMENT: HISTORY: Infection requiring long-term antibiotic therapy PROCEDURE: Ultrasound and fluoroscopic guidance of PICC line placement. COMPLICATIONS: None ANESTHESIA: 1. 1% Lidocaine locally. FINDINGS/TECHNIQUE: The procedure was explained to the patient. The risks, complications, benefits and alternatives were discussed and any questions were answered. Informed consent was obtained. The patient was placed supine on the fluoroscopic table and prepped and draped in the usual sterile fash ion. Utilizing a 21 gauge needle and sonographic and fluoroscopic guidance, access in the left basi lic vein vein was achieved and there is placement of a 0.018 guidewire. The vein is patent. A 4-F s alex was placed over the guidewire. The guidewire and dilator were removed and a 4-F. PICC line was placed through the sheath with the tip at the level of the SVC. The sheath was removed, the cathete r was flushed and sutured into position. The patient was stable throughout the procedure and remaine d stable upon discharge from the Department of Radiology. The vein puncture was patent under ultrasound. A wilder scale image was obtained to document patency of the vein punctured. All elements of the maximal barrier technique were utilized. FLUOROSCOPY TIME: 0.1 minutes and one images submitted IMPRESSION: Successful PICC line placement under ultrasound and fluoroscopic guidance.
[2020-07-10 09:29] LABS: Magnesium 1.7 mg/dL (1.5-2.4)
[2020-07-10 09:30] LABS: African American GFR (CKD) 39.6 (60.0-200.0); Albumin 3.6 g/dL (3.80-4.90); Albumin/Globulin Ratio 2.25 (1.60-3.17); Anion Gap 10.2 mmol/L (4.00-12.00); Calcium 8.7 mg/dL (8.7-10.3); Carbon Dioxide 20.8 mmol/L (21.6-31.8); Globulin 1.6 g/dL (1.6-3.3); Non-African American GFR(CKD) 34.2 (60.0-200.0); Phosphorus 3.6 mg/dL (2.4-5.1); Potassium 3.9 mmol/L (3.5-5.5); Total Bilirubin 0.2 mg/dL (0.3-1.2); Total Protein 5.2 g/dL (6.2-8.2)
[2020-07-10] MEDS: ONDANSETRON 4 MG/2 ML VIAL IVP PRN ×2 (10:21→20:27)
--- NOTE | 2020-07-10 10:26 | CDI ---
Documentation Clarification Form Date: 07/10/2020 09:56:08 AM From: Uma Alfaro CCS, CCDS Admit Date: 07/09/2020 09:35:00 AM Patient Name: Louise Sutton Visit Number: [id number] Discharge Date: ATTENTION: The Clinical Documentation Specialists (CDI) and [facility] Coding Staff appreciate your assistance in clarifying documentation. Please respond to the clarification below the line at the bottom and electronically sign. The CDI & [facility] Coding staff will review the response and follow-up if needed. Please note: Queries are made part of the Legal Health Record. If you have any questions, please contact the author of this message via ITS. Dr. Geovanny Womack: Chronic Bronchial Asthma is documented in the 07/08 Pulmonary Consult and in the subsequent Pulmonary Progress Note on 07/09 without further specificity. History/risk factors per the 07/07 ED Note Past Medical History: Asthma, DVT, GERD, OA: multiple areas, Stomach ulcers status post Gastrectomy, Low Calcium, Migraine Headache, Pancreatitis, Constipation, TIA, Spinal Stenosis status post surgery, Anemia. Clinical Indicators: Presented to the ED 07/07 with Nausea, Vomiting and Diarrhea. Recently discharged after treatment for pneumonia. ED Clinical Impression: Nausea & vomiting, Headache. 07/07 VS: T 97.7, P 125, R 16, BP 160/99, PO 97 RA, BMI: 15.5 07/09 VS: T 97.8, P 88, R 16, BP 113/68, PO PO 99 RA 07/07 LAB: WBC 12.3, Pl Ct 469, Neut 10.4, Cl 110, CO2 15, BUN 35, Cr 1.72, Glucose 101, Alk Phos 356. 07/09 LAB: WBC 11.84, Hgb 9.5, Hct 30.7, Neut 8.59, Eos 0.41, Cl 113, CO2 19.7, BUN 31.0, Cr 1.8, GFR 27.4, Total bili 0.1, Alk Phos 276, CRP 2.9, Total protein 5.1, Albumin 3.40, Procalcitonin 0.13. Treatment: IV Zofran, IV Morphine 4mg x1, IV Morphine 4 mg q4Hr, IV Zofran q8Hr, IV fluid 1,000 mls @ 80 mls/hr q12H. 07/08: INH Ventolin, IV Rocephin 50 mls @ 100 mls/hr q24Hr 07/09: IV Zosyn 1000 mls @ 25 mls/hr q12H In your professional opinion, can you please further specify the asthma, if known? [ ] Acute Exacerbation [ x ] Without Acute Exacerbation [ ] COPD (specify with or without exacerbation) [ ] Other, please specify ___ [ ] Unable to determine Severity [ ] Mild intermittent [ ] Mild persistent [ x] Moderate persistent [ ] Severe persistent [ ] Other, please specify ____ [ ] Unable to determine Form or Type [ ] Cough variant [ ] Extrinsic allergic [ x ] Late-onset [ ] Mixed [ ] Other, please specify____ [ ] Unable to determine (Last Revision: July 2017) MTDD
--- NOTE | 2020-07-10 10:37 | CDI ---
Documentation Clarification Form Date: 07/10/2020 10:27:00 AM From: Uma Alfaro CCS, CCDS Admit Date: 07/09/2020 09:35:00 AM Patient Name: Louise Sutton Visit Number: [id number] Discharge Date: ATTENTION: The Clinical Documentation Specialists (CDI) and [facility] Coding Staff appreciate your assistance in clarifying documentation. Please respond to the clarification below the line at the bottom and electronically sign. The CDI & [facility] Coding staff will review the response and follow-up if needed. Please note: Queries are made part of the Legal Health Record. If you have any questions, please contact the author of this message via ITS. Dr. Palmer Desir: Anemia without further specificity is documented in the 07/07 ED Note and 07/08 History & Physical and subsequent Consults and Progress Notes: "States had short term memory problems until admit in March, discovered hemoglobin was low (anemia), when corrected memory has improved." History/risk factors per the 07/07 ED Note Past Medical History: Asthma, DVT, GERD, OA: multiple areas, Stomach ulcers status post Gastrectomy, CKD III, Low Calcium, Migraine Headache, Pancreatitis, Constipation, TIA, Spinal Stenosis status post surgery, Anemia. Clinical Indicators: Presented to the ED 07/07 with Nausea, Vomiting and Diarrhea. Recently discharged after treatment for pneumonia. ED Clinical Impression: Nausea & vomiting, Headache. Per the 07/09 Attending Progress Note: Found to have an obstruction at the level of the diaphragm, will have PICC line placed for TPN. 07/07 VS: T 97.7, P 125, R 16, BP 160/99, PO 97 RA, BMI: 15.5 07/09 VS: T 97.8, P 88, R 16, BP 113/68, PO PO 99 RA 07/07 LAB: WBC 12.3, Pl Ct 469, Neut 10.4, Cl 110, CO2 15, BUN 35, Cr 1.72, Glucose 101, Alk Phos 356. 07/09 LAB: WBC 11.84, Hgb 9.5, Hct 30.7, Neut 8.59, Eos 0.41, Cl 113, CO2 19.7, BUN 31.0, Cr 1.8, GFR 27.4, Total bili 0.1, Alk Phos 276, CRP 2.9, Total protein 5.1, Albumin 3.40, Procalcitonin 0.13. Treatment: IV Zofran, IV Morphine 4mg x1, IV Morphine 4 mg q4Hr, IV Zofran q8Hr, IV fluid 1,000 mls @ 80 mls/hr q12H. 07/08: INH Ventolin, IV Rocephin 50 mls @ 100 mls/hr q24Hr, Feosol ordered but not given. 07/09: IV Zosyn 1000 mls @ 25 mls/hr q12H In order to capture the severity of condition, please clarify the type of anemia and etiology if known:. [ ] Acute on chronic blood loss anemia [ ] Chronic blood loss anemia [ ] Hemolytic anemia [ ] Nutritional anemia [ ] Iron Deficiency anemia [ ] Anemia of chronic kidney disease [ ] Unable to determine [ ] Other, please specify (Last Form Revision: June 2019) Iron deficiency anemia MTDD
--- NOTE | 2020-07-10 10:48 | CDI ---
Documentation Clarification Form Date: 07/10/2020 10:38:00 AM From: Uma Alfaro CCS, CCDS Admit Date: 07/09/2020 09:35:00 AM Patient Name: Louise Sutton Visit Number: [id number] Discharge Date: ATTENTION: The Clinical Documentation Specialists (CDI) and [facility] Coding Staff appreciate your assistance in clarifying documentation. Please respond to the clarification below the line at the bottom and electronically sign. The CDI & [facility] Coding staff will review the response and follow-up if needed. Please note: Queries are made part of the Legal Health Record. If you have any questions, please contact the author of this message via ITS. Dr. Palmer Desir: The patient's BMI is 15.5 with a history of Gastrectomy due to Peptic Ulcer Disease and now admitted with Intractable Nausea & Vomiting. History/risk factors per the 07/07 ED Note Past Medical History: Asthma, DVT, GERD, OA: multiple areas, Stomach ulcers status post Gastrectomy, CKD III, Low Calcium, Migraine Headache, Pancreatitis, Constipation, TIA, Spinal Stenosis status post surgery, Anemia. Clinical Indicators: Presented to the ED 07/07 with Nausea, Vomiting and Diarrhea. Recently discharged after treatment for pneumonia. ED Clinical Impression: Nausea & vomiting, Headache. Per the 07/09 Attending Progress Note: Found to have an obstruction at the level of the diaphragm, will have PICC line placed for TPN. 07/07 VS: T 97.7, P 125, R 16, BP 160/99, PO 97 RA, BMI: 15.5 07/09 VS: T 97.8, P 88, R 16, BP 113/68, PO PO 99 RA 07/07 LAB: WBC 12.3, Pl Ct 469, Neut 10.4, Cl 110, CO2 15, BUN 35, Cr 1.72, Glucose 101, Alk Phos 356. 07/09 LAB: WBC 11.84, Hgb 9.5, Hct 30.7, Neut 8.59, Eos 0.41, Cl 113, CO2 19.7, BUN 31.0, Cr 1.8, GFR 27.4, Total bili 0.1, Alk Phos 276, CRP 2.9, Total protein 5.1, Albumin 3.40, Procalcitonin 0.13. Nursing Feeding & Nutritional Assessment (Dietitian not consulted): 07/08: Appetite fair last 1-3 months. Nutrition Intake: Fair 25-50% consumed (regular diet.). Patient reports weight loss in past 6 months. Medications: Antiemetic, Diuretic, Iron, K, PPI, Vit B1, Folic Acid. Underweight, BMI: 15.5. Weight: 38.555 kg, Height 5 ft 2 in. Calculated IBW: 50 kg, at 77% of IBW. Treatment: IV Zofran, IV Morphine 4mg x1, IV Morphine 4 mg q4Hr, IV Zofran q8Hr, IV fluid 1,000 mls @ 80 mls/hr q12H. 07/08: INH Ventolin, IV Rocephin 50 mls @ 100 mls/hr q24Hr, Feosol ordered but not given. 07/09: IV Zosyn 1000 mls @ 25 mls/hr q12H, Pending PICC line for TPN. 07/09: Nutrition Diagnosis: Malnutrition, severe, chronic. Severe pectoralis major, temporalis, tricep, buccal fat pad muscle wasting. In your professional opinion, can you please clarify if these findings signify one of the following conditions? [ ] Mild Protein-Calorie Malnutrition [ ] Moderate Protein-Calorie Malnutrition [ ] Severe Protein-Calorie Malnutrition [ ] Malnutrition following GI surgery [ ] Other condition, please specify [ ] Unable to determine (Last Revision: October 2018) Severe protein calorie malnutrition MTDD
--- NOTE | 2020-07-10 11:37 | P.PN ---
Subjective Progress Note Date: 07/10/20 This is a 75-year-old female patient who presents to the ER with complaints of nausea and vomiting. Patient was recently discharged and treated for pneumonia. Patient reports that she was unable to take her antibiotic without vomiting which prompted her to come the ER for further evaluation. Patient has a past medical history of asthma, DVT, GERD, memory impairment, pancreatitis and chronic pain. Head CT was performed in ER showing negative unenhanced head CT scan no change. Chest x-ray performed showing bilateral pulmonary infiltrates similar to recent exam failure. Started on IV Rocephin for pneumonia and pulmonary service is consulted. GI service is consulted for the nausea Protonix and Zofran ordered. Creatinine 1.59 and bun 30 this does appear on patient's baseline. At this time patient is resting comfortably in bed states she has been able to keep down sara maximino. Patient denies chest pain. Patient does report some wheezing and coughing. Patient denies any urinary burning or frequency. Patient denies any diarrhea On 07/09/2020 patient was seen and examined on the medical floor she is alert and oriented 3 in no apparent distress she is complaining of nausea and vom iting otherwise she denies any complaints at this time barium swallow evaluation revealed evidence of obstruction at the liver of diaphragmatic surgical consultation requested and the recommendation for surgery is to transfer patient to [facility] where she had her previous gastrectomy otherwise patient is doing well there is no fever or chills no headache or dizziness no chest pain no abdominal pain no diarrhea no blood in the stools no burning with urination no frequency or urgency and no hematuria patient is having recurrent episodes of vomiting and is unable to keep any food down at this time will ask for a PICC line placement patient will be started on TPN transfer to [facility] was initiated On 07/10/2020 patient is alert and oriented 3 requesting increasing pain medication. Plans for EGD today per surgical services and transferred you a vomiting process. PICC line in place. IV antibiotics changed to Zosyn per pulmonary. At this time patient denies any chest pain or shortness of breath. Denies any urinary burning or frequency. Patient complaining of abdominal pain and nausea vomiting Objective - Vital Signs Vital signs: Vital Signs Temp 98.2 F 07/10/20 05:00 Pulse 91 07/10/20 05:00 Resp 16 07/10/20 05:00 BP 118/67 07/10/20 05:00 Pulse Ox 96 07/10/20 05:00 Intake & Output 07/09/20 07/10/20 07/10/20 18:59 06:59 18:59 Intake Total 1010 1300 Balance 1010 1300 Weight 38.555 kg Intake: Intake, IV Titration 1010 1060 Amount Piperacillin-Tazobactam 3 100 .375 gm In Sodium Chloride 0.9% 100 ml @ 25 mls/hr IVPB Q12H [facility] Rx# :[id number] Sodium Chloride 0.9% 1, 960 960 000 ml @ 80 mls/hr IV . [id number] [facility] Rx#:[id number] cefTRIAXone 1 gm In 50 Sodium Chloride 0.9% 50 ml @ 100 mls/hr IVPB Q24HR [facility] Rx#:[id number] Oral 240 Other: Voiding Method Toilet Toilet # Voids 1 4 - Exam in general patient is alert and oriented 3 in no apparent distress HEENT head normocephalic and atraumatic Chest supple no JVD no goiter no lymphadenopathy Chest exam reveals a few scattered crackles bilaterally no wheezing Cardiac exam reveals regular heart sounds no gallops no murmurs Abdomen is soft nontender no organomegaly with normal bowel sounds Extremity exam reveals no edema no cyanosis or clubbing - Labs CBC & Chem 7: 07/10/20 04:07 07/10/20 04:07 Labs: Abnormal Lab Results - Last 24 Hours (Table) 07/09/20 07/09/20 07/10/20 Range/Units 04:54 04:54 04:07 WBC (4.50-10.00) X 10*3/uL RBC (4.10-5.20) X 10*6/uL Hgb (12.0-15.0) g/dL Hct (37.2-46.3) % MCHC (32.0-37.0) g/dL RDW (11.5-14.5) % MPV (9.5-12.2) fL Immature Gran # (0.00-0.04) X 10*3/uL Neutrophils # (1.80-7.70) X 10*3/uL Monocytes # (0.20-1.00) X 10*3/uL Chloride 113 H 110 H (96-109) mmol/L Carbon Dioxide 19.7 L 20.8 L (21.6-31.8) mmol/L BUN 31.0 H (9.0-27.0) mg/dL Creatinine 1.8 H (0.6-1.5) mg/dL Est GFR (CKD-EPI)AfAm 31.8 L 39.6 L (60.0-200.0) Est GFR (CKD-EPI)NonAf 27.4 L 34.2 L (60.0-200.0) Glucose 117 H (70-110) mg/dL Ionized Calcium Tomas 5.5 H (4.5-5.3) mg/dL Total Bilirubin 0.1 L 0.2 L (0.2-1.2) mg/dL Alkaline Phosphatase 276 H 272 H (41-126) U/L C-Reactive Protein 2.9 H (0.0-0.8) mg/dL Total Protein 5.1 L 5.2 L (6.2-8.2) g/dL Albumin 3.40 L 3.60 L (3.80-4.90) g/dL Triglycerides 191.0 H (0.0-149.0) mg/dL Procalcitonin 0.13 H (0.02-0.09) ng/mL 07/10/20 Range/Units 04:07 WBC 11.10 H (4.50-10.00) X 10*3/uL RBC 3.55 L (4.10-5.20) X 10*6/uL Hgb 10.0 L (12.0-15.0) g/dL Hct 33.1 L (37.2-46.3) % MCHC 30.2 L (32.0-37.0) g/dL RDW 19.7 H (11.5-14.5) % MPV 8.8 L (9.5-12.2) fL Immature Gran # 0.06 H (0.00-0.04) X 10*3/uL Neutrophils # 7.94 H (1.80-7.70) X 10*3/uL Monocytes # 1.08 H (0.20-1.00) X 10*3/uL Chloride (96-109) mmol/L Carbon Dioxide (21.6-31.8) mmol/L BUN (9.0-27.0) mg/dL Creatinine (0.6-1.5) mg/dL Est GFR (CKD-EPI)AfAm (60.0-200.0) Est GFR (CKD-EPI)NonAf (60.0-200.0) Glucose (70-110) mg/dL Ionized Calcium Tomas (4.5-5.3) mg/dL Total Bilirubin (0.2-1.2) mg/dL Alkaline Phosphatase (41-126) U/L C-Reactive Protein (0.0-0.8) mg/dL Total Protein (6.2-8.2) g/dL Albumin (3.80-4.90) g/dL Triglycerides (0.0-149.0) mg/dL Procalcitonin (0.02-0.09) ng/mL Assessment and Plan Assessment: 1. Intractable vomiting. Zofran ordered. GI service is consulted. Amylase and lipase ordered, she was found to have an obstruction at the level of the diaphragm, patient will be started on TPN today as she is having constant vomiting, recommendation for surgery is to transfer to [facility] where she had her previous gastrectomy, transfer was initiated today. 2. Pneumonia. Patient recently discharged on antibiotics. Pulmonary services reconsulted and patient started on Rocephin. We'll also consult infectious disease due to possible aspiration 3. History of peptic ulcer disease 4. History of pancreatitis 5. History of gastrectomy 6. Chronic kidney disease stage III. Labs do appear on baseline 7. Chronic pain. Patient maintained on fentanyl patch DVT prophylaxis Lovenox. GI prophylaxis Protonix GI, surgical services, pulmonary and infectious disease service is consulted EGD today per surgical services
[2020-07-10] MEDS ORDERED: LIDOCAINE 1% INJ 10MG/ML (20 ML MDV) ONE (11:55)
[2020-07-10] MEDS ORDERED: PROPOFOL 10 MG/ML 20 ML VIAL IV ONE (11:55)
[2020-07-10] MEDS ORDERED: LACTATED RINGERS 1,000 ML IV ONE ×2 (12:02)
[2020-07-10] MEDS ORDERED: HYDROmorphone 0.2 MG/1 ML SYRINGE IVP PRN (12:24)
--- NOTE | 2020-07-10 12:30 | P.PCN ---
Date of Procedure: 07/10/20 Procedure(s) Performed: Preoperative Dx: Dysphagia Postoperative Dx: Normal-appearing esophagojejunostomy without obvious obstruction, hiatal hernia Procedure: Esophagojejunoscopy Anesthesia: Sedation Endoscopist: Dr. Guadalupe Specimens: None Endoscopic Procedure: The patient was on the endoscopy table in the left decubitus position. The Olympus gastroscope was inserted into the oropharynx and passed under direct visualization to the end to side esophagojejunostomy. Both limbs of the jejunum were inspected. No obstructing site was seen. There were no inflammatory changes or ulcerations. The anastomosis was widely patent. Mild tortuosity of the esophagus was visualized. The patient was then taken to the recovery room in stable condition per anesthesia guidelines. Recommendations: Recent upper GI and CAT scan and modified barium swallow films reviewed with radiology. Etiology for obstruction seen on upper GI unclear but may be related to transient kinking of the jejunal limb at the hiatal hernia site. Patient is anxious to resume a diet. Given the lack of obstruction seen at this time we'll begin full liquids with resumption of her medications. Still advise tertiary care evaluation given the complex the of this case.
[2020-07-10] MEDS ORDERED: MAGNESIUM SULFATE-D5W PMX 1 GM in DEXTROSE/WATER 1 100ML.BAG IVPB ONE (13:15)
[2020-07-10] MEDS: BUTALB/APAP/CAFF 50-325-40MG TAB PO PRN ×2 (13:34→20:28)
--- NOTE | 2020-07-10 14:20 | P.PN ---
Subjective Progress Note Date: 07/10/20 Principal diagnosis: Recurrent nausea and vomiting Patient was seen and examined lying in bed. She denies any nausea, vomiting, or abdominal pain. She is scheduled for an upper endoscopy with Dr. Guadalupe. Arrangements have been made for transfer to [facility], however she is awaiting a bed. Objective - Vital Signs Vital signs: Vital Signs Temp 98.2 F 07/10/20 05:00 Pulse 91 07/10/20 05:00 Resp 16 07/10/20 05:00 BP 118/67 07/10/20 05:00 Pulse Ox 96 07/10/20 05:00 Intake & Output 07/09/20 07/10/20 07/10/20 18:59 06:59 18:59 Intake Total 1010 1300 Balance 1010 1300 Weight 38.555 kg Intake: Intake, IV Titration 1010 1060 Amount Piperacillin-Tazobactam 3 100 .375 gm In Sodium Chloride 0.9% 100 ml @ 25 mls/hr IVPB Q12H [facility] Rx# :[id number] Sodium Chloride 0.9% 1, 960 960 000 ml @ 80 mls/hr IV . [id number] [facility] Rx#:[id number] cefTRIAXone 1 gm In 50 Sodium Chloride 0.9% 50 ml @ 100 mls/hr IVPB Q24HR [facility] Rx#:[id number] Oral 240 Other: Voiding Method Toilet Toilet # Voids 1 4 - Exam General appearance: The patient is alert, oriented, appears in no acute distress. Thin. HET: Head is normocephalic and atraumatic. Conjunctiva pink. Sclera anicteric. Neck: Supple without lymphadenopathy. Abdomen: Soft, thin, nontender, nondistended with bowel sounds. No guarding or rigidity. Extremities: Normal skin color and turgor. No pedal edema Skin: No rashes, no jaundice Neurological: No focal deficits. Alert and oriented 3. - Labs CBC & Chem 7: 07/10/20 04:07 07/10/20 04:07 Labs: Abnormal Lab Results - Last 24 Hours (Table) 07/09/20 07/09/20 07/10/20 Range/Units 04:54 04:54 04:07 WBC (4.50-10.00) X 10*3/uL RBC (4.10-5.20) X 10*6/uL Hgb (12.0-15.0) g/dL Hct (37.2-46.3) % MCHC (32.0-37.0) g/dL RDW (11.5-14.5) % MPV (9.5-12.2) fL Immature Gran # (0.00-0.04) X 10*3/uL Neutrophils # (1.80-7.70) X 10*3/uL Monocytes # (0.20-1.00) X 10*3/uL Chloride 113 H 110 H (96-109) mmol/L Carbon Dioxide 19.7 L 20.8 L (21.6-31.8) mmol/L BUN 31.0 H (9.0-27.0) mg/dL Creatinine 1.8 H (0.6-1.5) mg/dL Est GFR (CKD-EPI)AfAm 31.8 L 39.6 L (60.0-200.0) Est GFR (CKD-EPI)NonAf 27.4 L 34.2 L (60.0-200.0) Glucose 117 H (70-110) mg/dL Ionized Calcium Tomas 5.5 H (4.5-5.3) mg/dL Total Bilirubin 0.1 L 0.2 L (0.2-1.2) mg/dL Alkaline Phosphatase 276 H 272 H (41-126) U/L C-Reactive Protein 2.9 H (0.0-0.8) mg/dL Total Protein 5.1 L 5.2 L (6.2-8.2) g/dL Albumin 3.40 L 3.60 L (3.80-4.90) g/dL Triglycerides 191.0 H (0.0-149.0) mg/dL Procalcitonin 0.13 H (0.02-0.09) ng/mL 07/10/20 Range/Units 04:07 WBC 11.10 H (4.50-10.00) X 10*3/uL RBC 3.55 L (4.10-5.20) X 10*6/uL Hgb 10.0 L (12.0-15.0) g/dL Hct 33.1 L (37.2-46.3) % MCHC 30.2 L (32.0-37.0) g/dL RDW 19.7 H (11.5-14.5) % MPV 8.8 L (9.5-12.2) fL Immature Gran # 0.06 H (0.00-0.04) X 10*3/uL Neutrophils # 7.94 H (1.80-7.70) X 10*3/uL Monocytes # 1.08 H (0.20-1.00) X 10*3/uL Chloride (96-109) mmol/L Carbon Dioxide (21.6-31.8) mmol/L BUN (9.0-27.0) mg/dL Creatinine (0.6-1.5) mg/dL Est GFR (CKD-EPI)AfAm (60.0-200.0) Est GFR (CKD-EPI)NonAf (60.0-200.0) Glucose (70-110) mg/dL Ionized Calcium Tomas (4.5-5.3) mg/dL Total Bilirubin (0.2-1.2) mg/dL Alkaline Phosphatase (41-126) U/L C-Reactive Protein (0.0-0.8) mg/dL Total Protein (6.2-8.2) g/dL Albumin (3.80-4.90) g/dL Triglycerides (0.0-149.0) mg/dL Procalcitonin (0.02-0.09) ng/mL Assessment and Plan (1) Nausea and vomiting Narrative/Plan: This is a 75-year-old white female who presented to the hospital with intractable nausea and vomiting associated with epigastric pain for last few days duration. She has been having these episodes on and off for several times over the last 3 years duration. She had an upper endoscopy by Dr. Meyer that was done in March 2020 that showed normal-appearing esophagus with no evidence of esophagitis or esophageal stricture. There is evidence of total gastrectomy and there was no anastomotic stricture. She is also complaining of dysphagia to solids and feels that she has been having aspiration pneumonia secondary to her swallowing difficulties. She did have a modified barium swallow done last week that showed evidence of mild penetration but no obvious aspiration. Gen. surgery on consult, patient to go for upper endoscopy today. Upper endoscopy findings included widely patent anastomosis, mild tortuosity of the esophagus, there were no inflammatory changes or ulcerations. No obstructing site seen. 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 Barium swallow ordered and reviewed 2. Surgical services on consult, appreciate the recommendations 3. Continue Protonix as ordered 4. Continue antiemetics as needed 5. Diet per surgical service recommendations 6. Plan is for transfer to [facility] for higher level of care per recommendations from surgical services Thank you for this consultation we will sign off at this time Dr. Turner I agree with the dictator's note, documented as a scribe by Nandini Perez.
[2020-07-10] MEDS ORDERED: MVI, ADULT NO.4 WITH VIT K 10 ML, TRACE (CONC-1ML/DOSE) 1 ML, SODIUM ACETATE 34 MEQ, PO... IV SCH ×6 (15:00)
--- NOTE | 2020-07-10 16:04 | P.PN ---
Subjective Progress Note Date: 07/10/20 75-year-old female well known to us. She has a long-standing history of COPD/asthma, and was recently discharged from the hospital on Thursday afternoon, and readmitted to the hospital last night. She came into the emergency department complaining of nausea, vomiting, and diarrhea. She blames it on the antibiotics that she was given. She states that she was not able to keep anything down. On her previous admission, she was admitted with COPD exacerbation and pneumonia. She was discharged home on antibiotics. She did okay initially, but over the last couple days, she had the nausea, and vomiting, as well as diarrhea. She also complains of headache. She denies any trauma. There is no chest pain or chest discomfort. She states that her breathing is pre-much at baseline. She denies vomiting up blood, and she denies any blood in her stools or melanotic stools. Her primary care physician is Dr. Eli. Her medical history includes chronic bronchial asthma, DVT, gastroesophageal reflux disease, dementia, osteoarthritis, migraine cephalgia, pancreatitis, TIA, and spinal stenosis. White count was 11.3, hemoglobin 11, hematocrit 35.1, and platelet count 461,000. PT, INR, and PTT were all normal. Sodium 141, potassium 3.5, chloride 112, CO2 17, anion gap 12, BUN 30, and creatinine 1.59. His electrolytes are consistent with a mild non-anion gap metabolic acidosis. Amylase and lipase were normal. Urine was negative. Chest x-ray, that was compared to a chest x-ray done on July 01, shows bilateral pulmonary infiltrates, and are unchanged. On today's evaluation of 07/09/2020, the patient remains nothing by mouth. The patient is being treated for bilateral pneumonia. The patient was also found to have an obstruction at the level of the diaphragm and this was noted by the barium swallow. General surgeries on the case. The patient has undergone a previous gastrectomy for peptic ulcer disease and [facility]. As such, based on general surgeries recommendation, it was advised for this patient to go back to [facility] regarding this issue. A PICC line will be inserted and the patient will be given TPN for nutritional support. She has undergone a previous Kacey-en-Y gastric bypass surgery. Meanwhile, the patient is currently on antibiotics and she is currently receiving Rocephin 1 g every 24 hours. The patient is currently on room air oxygen. Pulse ox is around 97%. COVID 19 testing was negative. Also noted that procalcitonin level was low on 2 separate occasions. 07/10/2020 patient is seen in follow-up on medical surgical floor, she is resting in bed, she is not in any acute distress, denies any difficulty breathing, she is having some pain in her bilateral ribs worse with deep breathing. Patient is on room air oxygen 95%, hemodynamically she stable, she's been afebrile, no cough, no congestion, patient is on clear liquid diet, no nausea or vomiting, she has also been started on TPN, and obstruction at the level of the diaphragm, transfer to the [facility] is pending. Is currently on Zosyn for antibiotic coverage, has had no fever or chills, and her procalcitonin all was negative at 0.13 on 07/09/2020 Objective - Vital Signs Vital signs: Vital Signs Temp 97.9 F 07/10/20 11:41 Pulse 82 07/10/20 11:41 Resp 17 07/10/20 11:41 BP 117/66 07/10/20 11:41 Pulse Ox 95 07/10/20 11:41 Intake & Output 07/09/20 07/10/20 07/10/20 18:59 06:59 18:59 Intake Total 1010 1300 100 Balance 1010 1300 100 Weight 38.555 kg Intake: IV 100 Intake, IV Titration 1010 1060 Amount Piperacillin-Tazobactam 3 100 .375 gm In Sodium Chloride 0.9% 100 ml @ 25 mls/hr IVPB Q12H [facility] Rx# :[id number] Sodium Chloride 0.9% 1, 960 960 000 ml @ 80 mls/hr IV . [id number] [facility] Rx#:[id number] cefTRIAXone 1 gm In 50 Sodium Chloride 0.9% 50 ml @ 100 mls/hr IVPB Q24HR [facility] Rx#:[id number] Oral 240 Other: Voiding Method Toilet Toilet # Voids 1 4 - Exam GENERAL EXAM: Alert, pleasant, 75-year-old white female, on room air, comfortable in no apparent distress. HEAD: Normocephalic/atraumatic. EYES: Normal reaction of pupils, equal size. Conjunctiva pink, sclera white. NOSE: Clear with pink turbinates. THROAT: No erythema or exudates. NECK: No masses, no JVD, no thyroid enlargement, no adenopathy. CHEST: No chest wall deformity. Symmetrical expansion. LUNGS: Equal air entry with rales at bilateral bases, more so at the left base, but no wheeze, rhonchi or dullness. CVS: Regular rate and rhythm, normal S1 and S2, no gallops, no murmurs, no rubs ABDOMEN: Soft, nontender. No hepatosplenomegaly, normal bowel sounds, no guarding or rigidity. EXTREMITIES: No clubbing, no edema, no cyanosis, 2+ pulses and upper and lower extremities. MUSCULOSKELETAL: Muscle strength and tone normal. SPINE: No scoliosis or deformity SKIN: No rashes CENTRAL NERVOUS SYSTEM: Alert and oriented -3. No focal deficits, tone is normal in all 4 extremities. PSYCHIATRIC: Alert and oriented -3. Appropriate affect. Intact judgment and insight. - Labs CBC & Chem 7: 07/10/20 04:07 07/10/20 04:07 Labs: Abnormal Lab Results - Last 24 Hours (Table) 07/10/20 07/10/20 Range/Units 04:07 04:07 WBC 11.10 H (4.50-10.00) X 10*3/uL RBC 3.55 L (4.10-5.20) X 10*6/uL Hgb 10.0 L (12.0-15.0) g/dL Hct 33.1 L (37.2-46.3) % MCHC 30.2 L (32.0-37.0) g/dL RDW 19.7 H (11.5-14.5) % MPV 8.8 L (9.5-12.2) fL Immature Gran # 0.06 H (0.00-0.04) X 10*3/uL Neutrophils # 7.94 H (1.80-7.70) X 10*3/uL Monocytes # 1.08 H (0.20-1.00) X 10*3/uL Chloride 110 H (96-109) mmol/L Carbon Dioxide 20.8 L (21.6-31.8) mmol/L Est GFR (CKD-EPI)AfAm 39.6 L (60.0-200.0) Est GFR (CKD-EPI)NonAf 34.2 L (60.0-200.0) Glucose 117 H (70-110) mg/dL Ionized Calcium Tomas 5.5 H (4.5-5.3) mg/dL Total Bilirubin 0.2 L (0.3-1.2) mg/dL Alkaline Phosphatase 272 H (41-126) U/L Total Protein 5.2 L (6.2-8.2) g/dL Albumin 3.60 L (3.80-4.90) g/dL Triglycerides 191.0 H (0.0-149.0) mg/dL Assessment and Plan Plan: Assessment: 1 GI obstruction and the patient has an obstruction at the level of the diaphragm based on the barium swallow. The patient is unable to eat and the patient had Nausea, vomiting, and diarrhea, and the patient has had a previous history of Kacey-en-Y gastric bypass surgery at [facility] and the patient was advised to go back [facility] regarding this issue. She is currently nothing by mouth. He can will be initiated. 2 bilateral pneumonia, with a stable respiratory status, and an unchanged chest x-ray. 3 History of chronic bronchial asthma. She also has a case of severe tracheal bronchomalacia 4 General medical debility. 5 History of chronic anemia. 6 History of hypothyroidism. 7 History of hyperlipidemia. 8 History of migraine cephalgia. 9 History of deep venous thrombosis. 10 History of gastroesophageal reflux disease. 11 History of dementia. 12 Multiple other medical problems and comorbidities. PLAN Current medical treatment, continue antibiotics, vital signs are stable, no worsening dyspnea, no fever or chills, continue nutritional support in the form of TPN, transfer to [facility] initiated and awaiting a bed there. Provide incentive spirometer, continue empiric antibiotics. I performed a history & physical examination of the patient and discussed their management with my nurse practitioner, Brittany Garcia. I reviewed the nurse practitioner's note and agree with the documented findings and plan of care. Lung sounds are positive for diminished breath sounds and mild crackles The findings and the impression was discussed with the patient. I attest to the documentation by the nurse practitioner. Time with Patient: Less than 30
[2020-07-10] MEDS: HYDROcodone/APAP 5-325MG 1 EACH TAB PO PRN ×2 (16:20→21:36)
[2020-07-10] MEDS: SODIUM CHLORIDE 0.9% 1,000 ML IV SCH (17:29)
[2020-07-10] MEDS: LORATADINE 10 MG TAB PO SCH (19:42)
[2020-07-10] MEDS: MIRTAZAPINE 45 MG TABLET PO SCH (19:42)
--- NOTE | 2020-07-11 01:45 | PN ---
PROGRESS NOTE DATE OF SERVICE: 07/10/2020 REASON FOR FOLLOWUP: Aspiration pneumonia. INTERVAL HISTORY: The patient is currently afebrile. Patient is breathing comfortably. Denies having chest pain. She did have a cough, not bringing up any sputum. No further nausea or vomiting. No diarrhea. PHYSICAL EXAMINATION: Blood pressure 115/65 with a pulse of 83, temperature 98.1. She is 97% on room air. General description is an elderly female lying in bed in no distress. Respiratory system: Unlabored breathing, decreased breath sounds in the bases. No wheeze. Heart S1, S2. Regular rate and rhythm. Abdomen: Soft, no tenderness. LABS: Hemoglobin is 10.3, white count 11.1, BUN of 24, creatinine 1.5. DIAGNOSTIC IMPRESSION AND PLAN: Patient admitted to the hospital with intractable vomiting with evidence of gastric outlet obstruction, previous bypass surgery. Patient at this point is covered with Zosyn to continue and monitor clinical course closely. Continue supportive care. MMODL / IJN: [id number] /
[2020-07-11] MEDS: PIPERACILLIN-TAZOBACTAM 3.375 GM in SODIUM CHLORIDE 0.9% 100 ML IVPB SCH ×2 (03:53→16:07)
[2020-07-11] MEDS: SODIUM CHLORIDE 0.9% 1,000 ML IV SCH (03:54)
[2020-07-11] MEDS: LEVOTHYROXINE 88 MCG TAB PO SCH (03:55)
[2020-07-11] MEDS: HYDROcodone/APAP 5-325MG 1 EACH TAB PO PRN ×4 (03:55→20:51)
[2020-07-11] MEDS: BUTALB/APAP/CAFF 50-325-40MG TAB PO PRN ×3 (05:42→22:52)
[2020-07-11 06:59] LABS: Glucose,Whole Blood 120 mg/dL (75-99)
[2020-07-11] MEDS ORDERED: LEVOTHYROXINE IVP 100 MCG/5 ML VIAL IV SCH (09:00)
[2020-07-11] MEDS: SYMBICORT 160-4.5 MCG INHALER INHALATION SCH ×2 (09:32→20:37)
[2020-07-11] MEDS: CHOLESTYRAMINE (WITH SUGAR) 4 GM PACKET PO SCH ×2 (10:11→20:53)
[2020-07-11] MEDS: POTASSIUM CHLORIDE ER 10 MEQ TAB.ER.PRT PO SCH ×3 (10:11→20:52)
[2020-07-11] MEDS: FOLIC ACID 1 MG TAB PO SCH (10:11)
[2020-07-11] MEDS: THIAMINE 100 MG TAB PO SCH (10:12)
[2020-07-11] MEDS: FERROUS SULFATE 325 MG TAB PO SCH ×2 (10:12→20:53)
[2020-07-11] MEDS: PANTOPRAZOLE 40 MG TABLET PO SCH ×2 (10:12→20:52)
[2020-07-11] MEDS: FUROSEMIDE 20 MG TAB PO SCH (10:12)
[2020-07-11] MEDS: DULoxetine HCL 60 MG CAPSULE.DR PO SCH (10:12)
[2020-07-11] MEDS: hydrOXYzine pamoate 25 MG CAP PO SCH ×3 (10:14→22:53)
[2020-07-11] MEDS: busPIRone HCl 10 MG TAB PO SCH ×2 (10:15→20:52)
[2020-07-11] MEDS: ENOXAPARIN 30 MG/0.3 ML SYRINGE SQ SCH (10:16)
[2020-07-11] MEDS: buPROPion XL 300 MG TAB.ER.24H PO SCH (10:18)
[2020-07-11 11:00] LABS: Basophils # (A) 0.07 X 10*3/uL (0.00-0.10); Basophils % (A) 0.7 %; Eosinophils # (A) 0.44 X 10*3/uL (0.04-0.35); Eosinophils % (A) 4.6 %; HCT 33.4 % (37.2-46.3); HGB 10.2 g/dL (12.0-15.0); Lymphocytes % (A) 17.6 %; MCH 28.4 pg (27.0-32.0); MCHC 30.5 g/dL (32.0-37.0); Mean Platelet Volume 8.7 fL (9.5-12.2); Monocytes # (A) 0.94 X 10*3/uL (0.20-1.00); Monocytes % (A) 9.7 %; Neutrophils # (A) 6.45 X 10*3/uL (1.80-7.70); Neutrophils % (A) 66.9 %; Platelet Count 392 X 10*3/uL (140-440); RBC 3.59 X 10*6/uL (4.10-5.20); RDW 19.1 % (11.5-14.5); WBC 9.65 X 10*3/uL (4.50-10.00)
--- NOTE | 2020-07-11 11:08 | P.PN ---
<Emily East - Last Filed: 07/11/20 11:01> Subjective Progress Note Date: 07/11/20 CHIEF COMPLAINT: Dysphagia HISTORY OF PRESENT ILLNESS: Patient is status post EGD which revealed normal- appearing esophagojejunostomy without obvious obstruction, hiatal hernia. Etiology for obstruction seen on upper GI unclear but may be related to transient kinking of the jejunal limb at the hiatal hernia site. Patient started on full liquid diet. She is currently tolerating full liquid diet. No nausea or vomiting. Her abdominal pain has decreased since admission. Afebrile. WBC 9.65 Hgb 10.2 patient is also on TPN for nutrition support. PHYSICAL EXAM: VITAL SIGNS: Reviewed. GENERAL: Well-developed in no acute distress. HEENT: No sclera icterus. Extraocular movements grossly intact. Moist buccal mucosa. Head is atraumatic, normocephalic. ABDOMEN: Soft. Nondistended. Minimal tenderness with palpation of epigastric area NEUROLOGIC: Alert and oriented. Cranial nerves II through XII grossly intact. ASSESSMENT: 1. Obstruction at the level of the diaphragm. Etiology for obstruction seen on upper GI unclear but may be related to transient kinking of the jejunal limb at the hiatal hernia site 2. Prior history of gastrectomy for peptic ulcer disease completed at [facility]. First surgery was in 1989 and second surgery 1994 3. Dysphagia 4. Nausea and vomiting PLAN: -Still recommend tertiary care evaluation either inpatient or outpatient due to the complexity of this case -Continue full liquid diet Physician Security Associate note has been reviewed by physician. Signing provider agrees with the documented findings, assessment, and plan of care. Objective - Vital Signs Vital signs: Vital Signs Temp 97.8 F 07/11/20 04:35 Pulse 83 07/11/20 04:35 Resp 14 07/11/20 04:35 BP 156/84 07/11/20 04:35 Pulse Ox 99 07/11/20 04:35 Intake & Output 07/10/20 07/11/20 07/11/20 18:59 06:59 18:59 Intake Total 330 2490 Balance 330 2490 Intake: IV 100 Intake, IV Titration 230 1420 Amount Magnesium Sulfate-D5w Pmx 100 1 gm In Dextrose/Water 1 100ml.bag @ 100 mls/hr IVPB ONCE ONE Rx#: [id number] Mvi, Adult No.4 with Vit 30 360 K 10 ml Trace (Conc-1Ml/ Dose) 1 ml Sodium Acetate 34 meq Potassium Phosphate 15 mmol Magnesium Sulfate gm 1 gm In Amino Acid 5%-D15w 1, 000 ml @ 55 mls/hr IV . [id number] [facility] Rx#:[id number] Piperacillin-Tazobactam 3 100 100 .375 gm In Sodium Chloride 0.9% 100 ml @ 25 mls/hr IVPB Q12H [facility] Rx# :[id number] Sodium Chloride 0.9% 1, 960 000 ml @ 80 mls/hr IV . [id number] [facility] Rx#:[id number] Oral 1070 Other: Voiding Method Toilet # Voids 2 - Labs CBC & Chem 7: 07/11/20 07:10 07/10/20 04:07 Labs: Abnormal Lab Results - Last 24 Hours (Table) 07/11/20 07/11/20 Range/Units 06:56 07:10 RBC 3.59 L (4.10-5.20) X 10*6/uL Hgb 10.2 L (12.0-15.0) g/dL Hct 33.4 L (37.2-46.3) % MCHC 30.5 L (32.0-37.0) g/dL RDW 19.1 H (11.5-14.5) % MPV 8.7 L (9.5-12.2) fL Immature Gran # 0.05 H (0.00-0.04) X 10*3/uL Eosinophils # 0.44 H (0.04-0.35) X 10*3/uL POC Glucose (mg/dL) 120 H (75-99) mg/dL <Nathan Guadalupe - Last Filed: 07/11/20 18:20> Subjective As above. Patient tolerating full liquids without dysphagia or vomiting. Continue full liquids for now. Await [facility] evaluation. Objective - Vital Signs Vital signs: Vital Signs Temp 97.5 F L 07/11/20 11:18 Pulse 79 07/11/20 11:18 Resp 14 07/11/20 11:18 BP 108/63 07/11/20 11:18 Pulse Ox 97 07/11/20 11:18 Intake & Output 07/10/20 07/11/20 07/11/20 18:59 06:59 18:59 Intake Total 330 2490 1000 Balance 330 2490 1000 Intake: IV 100 Intake, IV Titration 230 1420 400 Amount Magnesium Sulfate-D5w Pmx 100 1 gm In Dextrose/Water 1 100ml.bag @ 100 mls/hr IVPB ONCE ONE Rx#: [id number] Mvi, Adult No.4 with Vit 30 360 K 10 ml Trace (Conc-1Ml/ Dose) 1 ml Sodium Acetate 34 meq Potassium Phosphate 15 mmol Magnesium Sulfate gm 1 gm In Amino Acid 5%-D15w 1, 000 ml @ 55 mls/hr IV . [id number] [facility] Rx#:[id number] Piperacillin-Tazobactam 3 100 100 400 .375 gm In Sodium Chloride 0.9% 100 ml @ 25 mls/hr IVPB Q12H [facility] Rx# :[id number] Sodium Chloride 0.9% 1, 960 000 ml @ 80 mls/hr IV . [id number] [facility] Rx#:[id number] Oral 1070 600 Other: Voiding Method Toilet Toilet # Voids 2 2 - Labs CBC & Chem 7: 07/11/20 07:10 07/11/20 07:10 Labs: Abnormal Lab Results - Last 24 Hours (Table) 07/11/20 07/11/20 07/11/20 Range/Units 06:56 07:10 07:10 RBC 3.59 L (4.10-5.20) X 10*6/uL Hgb 10.2 L (12.0-15.0) g/dL Hct 33.4 L (37.2-46.3) % MCHC 30.5 L (32.0-37.0) g/dL RDW 19.1 H (11.5-14.5) % MPV 8.7 L (9.5-12.2) fL Immature Gran # 0.05 H (0.00-0.04) X 10*3/uL Eosinophils # 0.44 H (0.04-0.35) X 10*3/uL Carbon Dioxide 21.2 L (21.6-31.8) mmol/L Est GFR (CKD-EPI)AfAm 43.1 L (60.0-200.0) Est GFR (CKD-EPI)NonAf 37.2 L (60.0-200.0) POC Glucose (mg/dL) 120 H (75-99) mg/dL 07/11/20 07/11/20 Range/Units 11:22 17:06 RBC (4.10-5.20) X 10*6/uL Hgb (12.0-15.0) g/dL Hct (37.2-46.3) % MCHC (32.0-37.0) g/dL RDW (11.5-14.5) % MPV (9.5-12.2) fL Immature Gran # (0.00-0.04) X 10*3/uL Eosinophils # (0.04-0.35) X 10*3/uL Carbon Dioxide (21.6-31.8) mmol/L Est GFR (CKD-EPI)AfAm (60.0-200.0) Est GFR (CKD-EPI)NonAf (60.0-200.0) POC Glucose (mg/dL) 125 H 281 H (75-99) mg/dL
[2020-07-11 11:29] LABS: Glucose,Whole Blood 125 mg/dL (75-99)
[2020-07-11 11:54] LABS: African American GFR (CKD) 43.1 (60.0-200.0); Anion Gap 11.8 mmol/L (4.00-12.00); BUN/Creat Ratio 18.57 Ratio (12.00-20.00); Calcium 8.7 mg/dL (8.7-10.3); Carbon Dioxide 21.2 mmol/L (21.6-31.8); Magnesium 2.1 mg/dL (1.5-2.4); Non-African American GFR(CKD) 37.2 (60.0-200.0); Phosphorus 3.6 mg/dL (2.4-5.1); Potassium 4.1 mmol/L (3.5-5.5)
--- NOTE | 2020-07-11 15:36 | PN ---
PROGRESS NOTE DATE OF SERVICE: 07/11/2020 REASON FOR FOLLOWUP: Aspiration pneumonia. INTERVAL HISTORY: The patient is currently afebrile. The patient is breathing comfortably. Denies having any chest pain, shortness of breath or cough. No abdominal pain. No diarrhea. PHYSICAL EXAMINATION: Blood pressure 108/63 with a pulse of 79, temperature 97.5. She is 97% on room air. General description is an elderly female lying in bed in no distress. RESPIRATORY SYSTEM: Unlabored breathing, decreased breath sounds at the bases. No wheeze. HEART: S1, S2. Regular rate and rhythm. ABDOMEN: Soft, no tenderness. LABS: Hemoglobin is 10.2, white count 9.65, BUN of 26, creatinine 1.4. DIAGNOSTIC IMPRESSION AND PLAN: Patient admitted to the hospital with vomiting and concern for aspiration pneumonia. This patient currently covered with Zosyn, the white count has normalized. Continue with Zosyn, transition to oral antibiotic on discharge. Continue supportive care. MMODL / IJN: [id number] /
[2020-07-11] MEDS: MVI, ADULT NO.4 WITH VIT K 10 ML, TRACE (CONC-1ML/DOSE) 1 ML, SODIUM ACETATE 34 MEQ, PO... IV SCH ×6 (15:38)
[2020-07-11] MEDS: ONDANSETRON 4 MG/2 ML VIAL IVP PRN (15:39)
[2020-07-11] MEDS: FAT EMULSION 20% 250 ML in EMPTY BAG 1 BAG IV SCH (15:39)
[2020-07-11] MEDS: ALBUTEROL HFA INHALER INHALATION PRN ×2 (16:22→20:37)
[2020-07-11 17:20] LABS: Glucose,Whole Blood 281 mg/dL (75-99)
[2020-07-11] MEDS: LORATADINE 10 MG TAB PO SCH (20:51)
[2020-07-12] MEDS: MIRTAZAPINE 45 MG TABLET PO SCH (00:23)
[2020-07-12 00:43] LABS: Glucose,Whole Blood 130 mg/dL (75-99)
[2020-07-12] MEDS: SODIUM CHLORIDE 0.9% 1,000 ML IV SCH ×3 (03:39→16:49)
[2020-07-12] MEDS: PIPERACILLIN-TAZOBACTAM 3.375 GM in SODIUM CHLORIDE 0.9% 100 ML IVPB SCH ×2 (05:18→16:25)
[2020-07-12 06:05] LABS: Glucose,Whole Blood 99 mg/dL (75-99)
[2020-07-12] MEDS: LEVOTHYROXINE 88 MCG TAB PO SCH (06:05)
[2020-07-12] MEDS: HYDROcodone/APAP 5-325MG 1 EACH TAB PO PRN ×3 (06:08→18:08)
[2020-07-12 07:25] LABS: African American GFR (CKD) 44 (>60 ml/min/1.73 sqM); Anion Gap 8 mmol/L; Blood Urea Nitrogen 29 mg/dL (7-17); Calcium 8.7 mg/dL (8.4-10.2); Carbon Dioxide 23 mmol/L (22-30); Chloride 106 mmol/L (98-107); Glucose 111 mg/dL (74-99); Magnesium 2.3 mg/dL (1.6-2.3); Non-African American GFR(CKD) 38 (>60 ml/min/1.73 sqM); Phosphorus 3.9 mg/dL (2.5-4.5); Potassium 4.1 mmol/L (3.5-5.1); Sodium 137 mmol/L (137-145)
[2020-07-12] MEDS: ENOXAPARIN 30 MG/0.3 ML SYRINGE SQ SCH (07:39)
[2020-07-12] MEDS: POTASSIUM CHLORIDE ER 10 MEQ TAB.ER.PRT PO SCH ×3 (07:39→21:40)
[2020-07-12] MEDS: FERROUS SULFATE 325 MG TAB PO SCH ×2 (07:39→21:41)
[2020-07-12] MEDS: buPROPion XL 300 MG TAB.ER.24H PO SCH (07:40)
[2020-07-12] MEDS: PANTOPRAZOLE 40 MG TABLET PO SCH ×2 (07:40→21:41)
[2020-07-12] MEDS: hydrOXYzine pamoate 25 MG CAP PO SCH ×3 (07:40→21:40)
[2020-07-12] MEDS: FUROSEMIDE 20 MG TAB PO SCH (07:40)
[2020-07-12] MEDS: busPIRone HCl 10 MG TAB PO SCH ×2 (07:41→21:40)
[2020-07-12] MEDS: FOLIC ACID 1 MG TAB PO SCH (07:41)
[2020-07-12] MEDS: THIAMINE 100 MG TAB PO SCH (07:43)
[2020-07-12] MEDS: CHOLESTYRAMINE (WITH SUGAR) 4 GM PACKET PO SCH ×2 (07:43→21:41)
[2020-07-12] MEDS: DULoxetine HCL 60 MG CAPSULE.DR PO SCH (07:51)
[2020-07-12] MEDS: ALBUTEROL HFA INHALER INHALATION PRN ×2 (09:05→12:46)
[2020-07-12] MEDS: SYMBICORT 160-4.5 MCG INHALER INHALATION SCH ×2 (09:05→20:33)
[2020-07-12] MEDS: MVI, ADULT NO.4 WITH VIT K 10 ML, TRACE (CONC-1ML/DOSE) 1 ML, SODIUM ACETATE 34 MEQ, PO... IV SCH ×6 (09:28)
[2020-07-12] MEDS: BUTALB/APAP/CAFF 50-325-40MG TAB PO PRN ×3 (09:51→20:09)
--- NOTE | 2020-07-12 10:48 | P.PN ---
<Emily East - Last Filed: 07/12/20 10:40> Subjective Progress Note Date: 07/12/20 CHIEF COMPLAINT: Dysphagia HISTORY OF PRESENT ILLNESS: Patient is status post EGD which revealed normal- appearing esophagojejunostomy without obvious obstruction, hiatal hernia. Etiology for obstruction seen on upper GI unclear but may be related to transient kinking of the jejunal limb at the hiatal hernia site. Patient on full liquid diet. Patient is complaining of some fullness and heaviness after eating this morning. She reports that she can feel the food is sitting in her esophagus and then slowly going downwards. She does report some abdominal pain in the epigastric and upper abdomen just below the rib cage on the right and left. She did have a bowel movement. She is afebrile. Creatinine 1.37 PHYSICAL EXAM: VITAL SIGNS: Reviewed. GENERAL: Well-developed in no acute distress. HEENT: No sclera icterus. Extraocular movements grossly intact. Moist buccal mucosa. Head is atraumatic, normocephalic. ABDOMEN: Soft. Nondistended. Minimal tenderness with palpation of epigastric area NEUROLOGIC: Alert and oriented. Cranial nerves II through XII grossly intact. ASSESSMENT: 1. Obstruction at the level of the diaphragm. Etiology for obstruction seen on upper GI unclear but may be related to transient kinking of the jejunal limb at the hiatal hernia site 2. Prior history of gastrectomy for peptic ulcer disease completed at [facility]. First surgery was in 1989 and second surgery 1994 3. Dysphagia 4. Nausea and vomiting PLAN: -Recommend tertiary care evaluation either inpatient or outpatient due to the complexity of this case -Continue full liquid diet -Encouraged patient to eat slowly and only a small amount at a time. -Educated patient to sit up at 90 while eating Physician Substance Abuse Services Director note has been reviewed by physician. Signing provider agrees with the documented findings, assessment, and plan of care. Objective - Vital Signs Vital signs: Vital Signs Temp 97.8 F 07/12/20 05:00 Pulse 80 07/12/20 05:00 Resp 20 07/12/20 05:00 BP 115/67 07/12/20 05:00 Pulse Ox 95 07/12/20 05:00 Intake & Output 07/11/20 07/12/20 07/12/20 18:59 06:59 18:59 Intake Total 1000 100 980.833 Balance 1000 100 980.833 Intake: Intake, IV Titration 400 980.833 Amount Mvi, Adult No.4 with Vit 980.833 K 10 ml Trace (Conc-1Ml/ Dose) 1 ml Sodium Acetate 34 meq Potassium Phosphate 15 mmol Magnesium Sulfate gm 1 gm In Amino Acid 5%-D15w 1, 000 ml @ 55 mls/hr IV . [id number] [facility] Rx#:[id number] Piperacillin-Tazobactam 3 400 .375 gm In Sodium Chloride 0.9% 100 ml @ 25 mls/hr IVPB Q12H [facility] Rx# :[id number] Oral 600 100 Other: Voiding Method Toilet Toilet # Voids 2 2 2 - Labs CBC & Chem 7: 07/11/20 07:10 07/12/20 06:10 Labs: Abnormal Lab Results - Last 24 Hours (Table) 07/11/20 07/11/20 07/11/20 Range/Units 07:10 07:10 11:22 RBC 3.59 L (4.10-5.20) X 10*6/uL Hgb 10.2 L (12.0-15.0) g/dL Hct 33.4 L (37.2-46.3) % MCHC 30.5 L (32.0-37.0) g/dL RDW 19.1 H (11.5-14.5) % MPV 8.7 L (9.5-12.2) fL Immature Gran # 0.05 H (0.00-0.04) X 10*3/uL Eosinophils # 0.44 H (0.04-0.35) X 10*3/uL Carbon Dioxide 21.2 L (21.6-31.8) mmol/L BUN (7-17) mg/dL Creatinine (0.52-1.04) mg/dL Est GFR (CKD-EPI)AfAm 43.1 L (60.0-200.0) Est GFR (CKD-EPI)NonAf 37.2 L (60.0-200.0) Glucose (74-99) mg/dL POC Glucose (mg/dL) 125 H (75-99) mg/dL 07/11/20 07/12/20 07/12/20 Range/Units 17:06 00:41 06:10 RBC (4.10-5.20) X 10*6/uL Hgb (12.0-15.0) g/dL Hct (37.2-46.3) % MCHC (32.0-37.0) g/dL RDW (11.5-14.5) % MPV (9.5-12.2) fL Immature Gran # (0.00-0.04) X 10*3/uL Eosinophils # (0.04-0.35) X 10*3/uL Carbon Dioxide (21.6-31.8) mmol/L BUN 29 H (7-17) mg/dL Creatinine 1.37 H (0.52-1.04) mg/dL Est GFR (CKD-EPI)AfAm (60.0-200.0) Est GFR (CKD-EPI)NonAf (60.0-200.0) Glucose 111 H (74-99) mg/dL POC Glucose (mg/dL) 281 H 130 H (75-99) mg/dL <Nathan Guadalupe - Last Filed: 07/12/20 13:18> Subjective As above. Patient still having dysphagia with full liquids. Await transfer to [facility]. Continue full liquid diet. Continue antiacids. Objective - Vital Signs Vital signs: Vital Signs Temp 97.9 F 07/12/20 12:09 Pulse 98 07/12/20 12:09 Resp 20 07/12/20 12:09 BP 118/68 07/12/20 12:09 Pulse Ox 99 07/12/20 12:09 Intake & Output 07/11/20 07/12/20 07/12/20 18:59 06:59 18:59 Intake Total 1000 100 980.833 Balance 1000 100 980.833 Intake: Intake, IV Titration 400 980.833 Amount Mvi, Adult No.4 with Vit 980.833 K 10 ml Trace (Conc-1Ml/ Dose) 1 ml Sodium Acetate 34 meq Potassium Phosphate 15 mmol Magnesium Sulfate gm 1 gm In Amino Acid 5%-D15w 1, 000 ml @ 55 mls/hr IV . [id number] [facility] Rx#:[id number] Piperacillin-Tazobactam 3 400 .375 gm In Sodium Chloride 0.9% 100 ml @ 25 mls/hr IVPB Q12H [facility] Rx# :[id number] Oral 600 100 Other: Voiding Method Toilet Toilet # Voids 2 2 2 - Labs CBC & Chem 7: 07/11/20 07:10 07/12/20 06:10 Labs: Abnormal Lab Results - Last 24 Hours (Table) 07/11/20 07/12/20 07/12/20 Range/Units 17:06 00:41 06:10 BUN 29 H (7-17) mg/dL Creatinine 1.37 H (0.52-1.04) mg/dL Glucose 111 H (74-99) mg/dL POC Glucose (mg/dL) 281 H 130 H (75-99) mg/dL
[2020-07-12 12:40] LABS: Glucose,Whole Blood 86 mg/dL (75-99)
[2020-07-12 17:49] LABS: Glucose,Whole Blood 161 mg/dL (75-99)
--- NOTE | 2020-07-12 19:10 | PN ---
PROGRESS NOTE DATE OF SERVICE: 07/12/2020 REASON FOR FOLLOWUP: Aspiration pneumonia. INTERVAL HISTORY: The patient is currently afebrile. The patient is breathing comfortably. Denies having any chest pain or shortness of breath. She did have a cough, not bringing up any sputum. No nausea, vomiting, abdominal pain or diarrhea. PHYSICAL EXAMINATION: Blood pressure 118/68 with a pulse of 90, temperature 97.9. She is 99% on room air. General description is an elderly female lying in bed in no distress. RESPIRATORY SYSTEM: Unlabored breathing with decreased breath sounds at the base. No wheeze. HEART: S1, S2. Regular rate and rhythm. ABDOMEN: Soft. No tenderness. LABS: BUN of 29, creatinine 1.37. DIAGNOSTIC IMPRESSION AND PLAN: Patient with aspiration pneumonia with gastric outlet obstruction. Surgery is following the patient. No further vomiting. The patient is covered with Zosyn; to continue and monitor clinical course closely. MMODL / IJN: [id number] /
[2020-07-12] MEDS: ONDANSETRON 4 MG/2 ML VIAL IVP PRN (19:56)
[2020-07-12] MEDS: LORATADINE 10 MG TAB PO SCH (21:41)
[2020-07-12] MEDS: SUMAtriptan succinate 50 MG TAB PO PRN (22:55)
[2020-07-13] MEDS ORDERED: HYDROcodone/APAP 5-325MG 1 EACH TAB ONE
[2020-07-13] MEDS ORDERED: BUTALB/APAP/CAFF 50-325-40MG TAB PO ONE (01:37)
[2020-07-13 05:37] LABS: Glucose,Whole Blood 106 mg/dL (75-99)
[2020-07-13 06:08] LABS: Glucose,Whole Blood 98 mg/dL (75-99)
[2020-07-13] MEDS: LEVOTHYROXINE 88 MCG TAB PO SCH (06:23)
[2020-07-13] MEDS: HYDROcodone/APAP 5-325MG 1 EACH TAB PO PRN ×2 (06:23→18:21)
[2020-07-13] MEDS: SODIUM CHLORIDE 0.9% 1,000 ML IV SCH ×2 (06:41→15:58)
[2020-07-13] MEDS: MIRTAZAPINE 45 MG TABLET PO SCH ×2 (06:41→19:50)
[2020-07-13] MEDS: MVI, ADULT NO.4 WITH VIT K 10 ML, TRACE (CONC-1ML/DOSE) 1 ML, SODIUM ACETATE 34 MEQ, PO... IV SCH ×12 (06:41→23:33)
[2020-07-13] MEDS: PIPERACILLIN-TAZOBACTAM 3.375 GM in SODIUM CHLORIDE 0.9% 100 ML IVPB SCH ×2 (06:41→15:49)
[2020-07-13 07:29] LABS: ALT 11 U/L (4-34); AST 22 U/L (14-36); African American GFR (CKD) 45 (>60 ml/min/1.73 sqM); Albumin 2.8 g/dL (3.5-5.0); Albumin/Globulin Ratio 1.3; Alkaline Phosphatase 192 U/L (38-126); Anion Gap 4 mmol/L; Blood Urea Nitrogen 33 mg/dL (7-17); Calcium 8.5 mg/dL (8.4-10.2); Carbon Dioxide 26 mmol/L (22-30); Chloride 106 mmol/L (98-107); Globulin 2.2 g/dL; Glucose 108 mg/dL (74-99); Magnesium 2.3 mg/dL (1.6-2.3); Non-African American GFR(CKD) 39 (>60 ml/min/1.73 sqM); Potassium 4.5 mmol/L (3.5-5.1); Sodium 136 mmol/L (137-145); Total Bilirubin 0.3 mg/dL (0.2-1.3)
[2020-07-13] MEDS: BUTALB/APAP/CAFF 50-325-40MG TAB PO PRN ×3 (08:23→21:43)
[2020-07-13] MEDS: SYMBICORT 160-4.5 MCG INHALER INHALATION SCH ×2 (08:23→19:39)
--- NOTE | 2020-07-13 09:54 | P.PN ---
Subjective Progress Note Date: 07/11/20 This is a 75-year-old female patient who presents to the ER with complaints of nausea and vomiting. Patient was recently discharged and treated for pneumonia. Patient reports that she was unable to take her antibiotic without vomiting which prompted her to come the ER for further evaluation. Patient has a past medical history of asthma, DVT, GERD, memory impairment, pancreatitis and chronic pain. Head CT was performed in ER showing negative unenhanced head CT scan no change. Chest x-ray performed showing bilateral pulmonary infiltrates similar to recent exam failure. Started on IV Rocephin for pneumonia and pulmonary service is consulted. GI service is consulted for the nausea Protonix and Zofran ordered. Creatinine 1.59 and bun 30 this does appear on patient's baseline. At this time patient is resting comfortably in bed states she has been able to keep down sara maximino. Patient denies chest pain. Patient does report some wheezing and coughing. Patient denies any urinary burning or frequency. Patient denies any diarrhea On 07/09/2020 patient was seen and examined on the medical floor she is alert and oriented 3 in no apparent distress she is complaining of nausea and vom iting otherwise she denies any complaints at this time barium swallow evaluation revealed evidence of obstruction at the liver of diaphragmatic surgical consultation requested and the recommendation for surgery is to transfer patient to [facility] where she had her previous gastrectomy otherwise patient is doing well there is no fever or chills no headache or dizziness no chest pain no abdominal pain no diarrhea no blood in the stools no burning with urination no frequency or urgency and no hematuria patient is having recurrent episodes of vomiting and is unable to keep any food down at this time will ask for a PICC line placement patient will be started on TPN transfer to [facility] was initiated On 07/10/2020 patient is alert and oriented 3 requesting increasing pain medication. Plans for EGD today per surgical services and transferred you a vomiting process. PICC line in place. IV antibiotics changed to Zosyn per pulmonary. At this time patient denies any chest pain or shortness of breath. Denies any urinary burning or frequency. Patient complaining of abdominal pain and nausea vomiting On 07/11/2020 patient was seen and examined on the medical floor she is alert and oriented 3 in no distress she is able to tolerate liquid diet well there is no fever or chills no headache or dizziness no chest pain no shortness of breath no cough no nausea or vomiting no abdominal pain no diarrhea no blood in the stools no burning with urination no frequency or urgency and no hematuria Objective - Vital Signs Vital signs: Vital Signs Temp 97.8 F 07/11/20 04:35 Pulse 83 07/11/20 04:35 Resp 14 07/11/20 04:35 BP 156/84 07/11/20 04:35 Pulse Ox 99 07/11/20 04:35 Intake & Output 07/10/20 07/11/20 07/11/20 18:59 06:59 18:59 Intake Total 330 2490 Balance 330 2490 Intake: IV 100 Intake, IV Titration 230 1420 Amount Magnesium Sulfate-D5w Pmx 100 1 gm In Dextrose/Water 1 100ml.bag @ 100 mls/hr IVPB ONCE ONE Rx#: [id number] Mvi, Adult No.4 with Vit 30 360 K 10 ml Trace (Conc-1Ml/ Dose) 1 ml Sodium Acetate 34 meq Potassium Phosphate 15 mmol Magnesium Sulfate gm 1 gm In Amino Acid 5%-D15w 1, 000 ml @ 55 mls/hr IV . [id number] [facility] Rx#:[id number] Piperacillin-Tazobactam 3 100 100 .375 gm In Sodium Chloride 0.9% 100 ml @ 25 mls/hr IVPB Q12H [facility] Rx# :[id number] Sodium Chloride 0.9% 1, 960 000 ml @ 80 mls/hr IV . [id number] [facility] Rx#:[id number] Oral 1070 Other: Voiding Method Toilet # Voids 2 - Exam in general patient is alert and oriented 3 in no apparent distress HEENT head normocephalic and atraumatic Chest supple no JVD no goiter no lymphadenopathy Chest exam reveals a few scattered crackles bilaterally no wheezing Cardiac exam reveals regular heart sounds no gallops no murmurs Abdomen is soft nontender no organomegaly with normal bowel sounds Extremity exam reveals no edema no cyanosis or clubbing - Labs CBC & Chem 7: 07/11/20 07:10 07/13/20 06:30 Labs: Abnormal Lab Results - Last 24 Hours (Table) 07/11/20 Range/Units 06:56 POC Glucose (mg/dL) 120 H (75-99) mg/dL Assessment and Plan Assessment: 1. Intractable vomiting. Zofran ordered. GI service is consulted. Amylase and lipase ordered, she was found to have an obstruction at the level of the diaphragm, patient will be started on TPN today as she is having constant vomiting, recommendation for surgery is to transfer to [facility] where she had her previous gastrectomy, transfer was initiated today. 2. Pneumonia. Patient recently discharged on antibiotics. Pulmonary services reconsulted and patient started on Rocephin. We'll also consult infectious disease due to possible aspiration 3. History of peptic ulcer disease 4. History of pancreatitis 5. History of gastrectomy 6. Chronic kidney disease stage III. Labs do appear on baseline 7. Chronic pain. Patient maintained on fentanyl patch DVT prophylaxis Lovenox. GI prophylaxis Protonix GI, surgical services, pulmonary and infectious disease service is consulted EGD today per surgical services
[2020-07-13] MEDS: FAT EMULSION 20% 250 ML in EMPTY BAG 1 BAG IV SCH (09:55)
--- NOTE | 2020-07-13 09:57 | P.PN ---
Subjective Progress Note Date: 07/12/20 This is a 75-year-old female patient who presents to the ER with complaints of nausea and vomiting. Patient was recently discharged and treated for pneumonia. Patient reports that she was unable to take her antibiotic without vomiting which prompted her to come the ER for further evaluation. Patient has a past medical history of asthma, DVT, GERD, memory impairment, pancreatitis and chronic pain. Head CT was performed in ER showing negative unenhanced head CT scan no change. Chest x-ray performed showing bilateral pulmonary infiltrates similar to recent exam failure. Started on IV Rocephin for pneumonia and pulmonary service is consulted. GI service is consulted for the nausea Protonix and Zofran ordered. Creatinine 1.59 and bun 30 this does appear on patient's baseline. At this time patient is resting comfortably in bed states she has been able to keep down sara maximino. Patient denies chest pain. Patient does report some wheezing and coughing. Patient denies any urinary burning or frequency. Patient denies any diarrhea On 07/09/2020 patient was seen and examined on the medical floor she is alert and oriented 3 in no apparent distress she is complaining of nausea and vom iting otherwise she denies any complaints at this time barium swallow evaluation revealed evidence of obstruction at the liver of diaphragmatic surgical consultation requested and the recommendation for surgery is to transfer patient to [facility] where she had her previous gastrectomy otherwise patient is doing well there is no fever or chills no headache or dizziness no chest pain no abdominal pain no diarrhea no blood in the stools no burning with urination no frequency or urgency and no hematuria patient is having recurrent episodes of vomiting and is unable to keep any food down at this time will ask for a PICC line placement patient will be started on TPN transfer to [facility] was initiated On 07/10/2020 patient is alert and oriented 3 requesting increasing pain medication. Plans for EGD today per surgical services and transferred you a vomiting process. PICC line in place. IV antibiotics changed to Zosyn per pulmonary. At this time patient denies any chest pain or shortness of breath. Denies any urinary burning or frequency. Patient complaining of abdominal pain and nausea vomiting. On 07/11/2020 patient was seen and examined on the medical floor she is alert and oriented 3 in no distress she is able to tolerate liquid diet well there is no fever or chills no headache or dizziness no chest pain no shortness of breath no cough no nausea or vomiting no abdominal pain no diarrhea no blood in the stools no burning with urination no frequency or urgency and no hematuria On 07/12/2020 patient was seen and examined on the medical floor she is alert and oriented 3 in no apparent distress, she is able to tolerate full liquid d iet well there is no fever or chills no headache or dizziness no chest pain no shortness of breath no cough no nausea or vomiting no abdominal pain no diarrhea no blood in the stools no burning with urination no frequency or urgency and no hematuria. At this time chances that patient will be transferred to [facility] are small due to current increase in Covid 19 cases and no available beds at [facility] plan is to continue to advance diet slowly and continue with IV antibiotics if patient is stable she can be discharged to a rehab center and follow-up with surgical department at [facility] as outpatient Objective - Vital Signs Vital signs: Vital Signs Temp 97.8 F 07/12/20 05:00 Pulse 80 07/12/20 05:00 Resp 20 07/12/20 05:00 BP 115/67 07/12/20 05:00 Pulse Ox 95 07/12/20 05:00 Intake & Output 07/11/20 07/12/20 07/12/20 18:59 06:59 18:59 Intake Total 1000 100 980.833 Balance 1000 100 980.833 Intake: Intake, IV Titration 400 980.833 Amount Mvi, Adult No.4 with Vit 980.833 K 10 ml Trace (Conc-1Ml/ Dose) 1 ml Sodium Acetate 34 meq Potassium Phosphate 15 mmol Magnesium Sulfate gm 1 gm In Amino Acid 5%-D15w 1, 000 ml @ 55 mls/hr IV . [id number] [facility] Rx#:[id number] Piperacillin-Tazobactam 3 400 .375 gm In Sodium Chloride 0.9% 100 ml @ 25 mls/hr IVPB Q12H [facility] Rx# :[id number] Oral 600 100 Other: Voiding Method Toilet Toilet # Voids 2 2 2 - Exam in general patient is alert and oriented 3 in no apparent distress HEENT head normocephalic and atraumatic Chest supple no JVD no goiter no lymphadenopathy Chest exam reveals a few scattered crackles bilaterally no wheezing Cardiac exam reveals regular heart sounds no gallops no murmurs Abdomen is soft nontender no organomegaly with normal bowel sounds Extremity exam reveals no edema no cyanosis or clubbing - Labs CBC & Chem 7: 07/11/20 07:10 07/13/20 06:30 Labs: Abnormal Lab Results - Last 24 Hours (Table) 07/11/20 07/11/20 07/11/20 Range/Units 07:10 07:10 11:22 RBC 3.59 L (4.10-5.20) X 10*6/uL Hgb 10.2 L (12.0-15.0) g/dL Hct 33.4 L (37.2-46.3) % MCHC 30.5 L (32.0-37.0) g/dL RDW 19.1 H (11.5-14.5) % MPV 8.7 L (9.5-12.2) fL Immature Gran # 0.05 H (0.00-0.04) X 10*3/uL Eosinophils # 0.44 H (0.04-0.35) X 10*3/uL Carbon Dioxide 21.2 L (21.6-31.8) mmol/L BUN (7-17) mg/dL Creatinine (0.52-1.04) mg/dL Est GFR (CKD-EPI)AfAm 43.1 L (60.0-200.0) Est GFR (CKD-EPI)NonAf 37.2 L (60.0-200.0) Glucose (74-99) mg/dL POC Glucose (mg/dL) 125 H (75-99) mg/dL 07/11/20 07/12/20 07/12/20 Range/Units 17:06 00:41 06:10 RBC (4.10-5.20) X 10*6/uL Hgb (12.0-15.0) g/dL Hct (37.2-46.3) % MCHC (32.0-37.0) g/dL RDW (11.5-14.5) % MPV (9.5-12.2) fL Immature Gran # (0.00-0.04) X 10*3/uL Eosinophils # (0.04-0.35) X 10*3/uL Carbon Dioxide (21.6-31.8) mmol/L BUN 29 H (7-17) mg/dL Creatinine 1.37 H (0.52-1.04) mg/dL Est GFR (CKD-EPI)AfAm (60.0-200.0) Est GFR (CKD-EPI)NonAf (60.0-200.0) Glucose 111 H (74-99) mg/dL POC Glucose (mg/dL) 281 H 130 H (75-99) mg/dL Assessment and Plan Assessment: 1. Intractable vomiting. Zofran ordered. GI service is consulted. Amylase and lipase ordered, she was found to have an obstruction at the level of the diaphragm, patient will be started on TPN today as she is having constant vomiti ng, recommendation for surgery is to transfer to [facility] where she had her previous gastrectomy, transfer was initiated today. 2. Pneumonia. Patient recently discharged on antibiotics. Pulmonary services reconsulted and patient started on Rocephin. We'll also consult infectious d isease due to possible aspiration 3. History of peptic ulcer disease 4. History of pancreatitis 5. History of gastrectomy 6. Chronic kidney disease stage III. Labs do appear on baseline 7. Chronic pain. Patient maintained on fentanyl patch DVT prophylaxis Lovenox. GI prophylaxis Protonix GI, surgical services, pulmonary and infectious disease service is consulted EGD today per surgical services
[2020-07-13] MEDS: CHOLESTYRAMINE (WITH SUGAR) 4 GM PACKET PO SCH ×2 (10:26→19:51)
[2020-07-13] MEDS: buPROPion XL 300 MG TAB.ER.24H PO SCH (10:31)
[2020-07-13] MEDS: busPIRone HCl 10 MG TAB PO SCH ×2 (10:32→19:51)
[2020-07-13] MEDS: DULoxetine HCL 60 MG CAPSULE.DR PO SCH (10:33)
[2020-07-13] MEDS: FOLIC ACID 1 MG TAB PO SCH (10:34)
[2020-07-13] MEDS: FERROUS SULFATE 325 MG TAB PO SCH ×2 (10:34→19:51)
[2020-07-13] MEDS: ENOXAPARIN 30 MG/0.3 ML SYRINGE SQ SCH (10:34)
[2020-07-13] MEDS: hydrOXYzine pamoate 25 MG CAP PO SCH ×3 (10:35→19:50)
[2020-07-13] MEDS: FUROSEMIDE 20 MG TAB PO SCH (10:35)
[2020-07-13] MEDS: THIAMINE 100 MG TAB PO SCH (10:37)
[2020-07-13] MEDS: PANTOPRAZOLE 40 MG TABLET PO SCH ×2 (10:37→19:51)
[2020-07-13] MEDS: SUMAtriptan succinate 50 MG TAB PO PRN (10:37)
--- NOTE | 2020-07-13 10:45 | P.PN ---
Subjective Progress Note Date: 07/13/20 This is a 75-year-old female patient who presents to the ER with complaints of nausea and vomiting. Patient was recently discharged and treated for pneumonia. Patient reports that she was unable to take her antibiotic without vomiting which prompted her to come the ER for further evaluation. Patient has a past medical history of asthma, DVT, GERD, memory impairment, pancreatitis and chronic pain. Head CT was performed in ER showing negative unenhanced head CT scan no change. Chest x-ray performed showing bilateral pulmonary infiltrates similar to recent exam failure. Started on IV Rocephin for pneumonia and pulmonary service is consulted. GI service is consulted for the nausea Protonix and Zofran ordered. Creatinine 1.59 and bun 30 this does appear on patient's baseline. At this time patient is resting comfortably in bed states she has been able to keep down sara maximino. Patient denies chest pain. Patient does report some wheezing and coughing. Patient denies any urinary burning or frequency. Patient denies any diarrhea On 07/09/2020 patient was seen and examined on the medical floor she is alert and oriented 3 in no apparent distress she is complaining of nausea and vom iting otherwise she denies any complaints at this time barium swallow evaluation revealed evidence of obstruction at the liver of diaphragmatic surgical consultation requested and the recommendation for surgery is to transfer patient to [facility] where she had her previous gastrectomy otherwise patient is doing well there is no fever or chills no headache or dizziness no chest pain no abdominal pain no diarrhea no blood in the stools no burning with urination no frequency or urgency and no hematuria patient is having recurrent episodes of vomiting and is unable to keep any food down at this time will ask for a PICC line placement patient will be started on TPN transfer to [facility] was initiated On 07/10/2020 patient is alert and oriented 3 requesting increasing pain medication. Plans for EGD today per surgical services and transferred you a vomiting process. PICC line in place. IV antibiotics changed to Zosyn per pulmonary. At this time patient denies any chest pain or shortness of breath. Denies any urinary burning or frequency. Patient complaining of abdominal pain and nausea vomiting. On 07/11/2020 patient was seen and examined on the medical floor she is alert and oriented 3 in no distress she is able to tolerate liquid diet well there is no fever or chills no headache or dizziness no chest pain no shortness of breath no cough no nausea or vomiting no abdominal pain no diarrhea no blood in the stools no burning with urination no frequency or urgency and no hematuria On 07/12/2020 patient was seen and examined on the medical floor she is alert and oriented 3 in no apparent distress, she is able to tolerate full liquid d iet well there is no fever or chills no headache or dizziness no chest pain no shortness of breath no cough no nausea or vomiting no abdominal pain no diarrhea no blood in the stools no burning with urination no frequency or urgency and no hematuria. At this time chances that patient will be transferred to [facility] are small due to current increase in Covid 19 cases and no available beds at [facility] plan is to continue to advance diet slowly and continue with IV antibiotics if patient is stable she can be discharged to a rehab center and follow-up with surgical department at [facility] as outpatient On 07/13/2020 patient's alert and oriented 3. Patient has been tolerating full liquid diet. Reports that she has been up out of bed. Patient remains on TPN and lipids. Remains on IV Zosyn. Surgical and infectious disease services following. Patient requesting x-ray be done of her neck due to increased pain. At this time patient denies chest pain or shortness breath. Patient denies any diarrhea. Patient denies any urinary burning or frequency Objective - Vital Signs Vital signs: Vital Signs Temp 97.7 F 07/13/20 07:47 Pulse 84 07/13/20 07:47 Resp 19 07/13/20 07:47 BP 113/71 07/13/20 07:47 Pulse Ox 99 07/13/20 07:47 Intake & Output 07/12/20 07/13/20 07/13/20 18:59 06:59 18:59 Intake Total 4700.833 1660 200 Balance 4700.833 1660 200 Weight 38.555 kg Intake: Intake, IV Titration 1720.833 960 Amount Mvi, Adult No.4 with Vit 980.833 K 10 ml Trace (Conc-1Ml/ Dose) 1 ml Sodium Acetate 34 meq Potassium Phosphate 15 mmol Magnesium Sulfate gm 1 gm In Amino Acid 5%-D15w 1, 000 ml @ 55 mls/hr IV . [id number] [facility] Rx#:[id number] Piperacillin-Tazobactam 3 100 .375 gm In Sodium Chloride 0.9% 100 ml @ 25 mls/hr IVPB Q12H [facility] Rx# :[id number] Sodium Chloride 0.9% 1, 640 960 000 ml @ 80 mls/hr IV . [id number] [facility] Rx#:[id number] Oral 2980 700 200 Other: # Voids 6 3 3 # Bowel Movements 1 - Exam in general patient is alert and oriented 3 in no apparent distress HEENT head normocephalic and atraumatic Chest supple no JVD no goiter no lymphadenopathy Chest exam reveals a few scattered crackles bilaterally no wheezing Cardiac exam reveals regular heart sounds no gallops no murmurs Abdomen is soft nontender no organomegaly with normal bowel sounds Extremity exam reveals no edema no cyanosis or clubbing - Labs CBC & Chem 7: 07/11/20 07:10 07/13/20 06:30 Labs: Abnormal Lab Results - Last 24 Hours (Table) 07/12/20 07/13/20 07/13/20 Range/Units 17:47 00:20 06:30 Sodium 136 L (137-145) mmol/L BUN 33 H (7-17) mg/dL Creatinine 1.36 H (0.52-1.04) mg/dL Glucose 108 H (74-99) mg/dL POC Glucose (mg/dL) 161 H 106 H (75-99) mg/dL Alkaline Phosphatase 192 H (38-126) U/L Total Protein 5.0 L (6.3-8.2) g/dL Albumin 2.8 L (3.5-5.0) g/dL Assessment and Plan Assessment: 1. Intractable vomiting. Zofran ordered. GI service is consulted. Amylase and lipase ordered, she was found to have an obstruction at the level of the diaphragm, patient will be started on TPN today as she is having constant vomiting, recommendation for surgery is to transfer to [facility] where she had her previous gastrectomy, transfer was initiated today. 2. Pneumonia. Patient recently discharged on antibiotics. We'll also consult infectious disease due to possible aspiration. Antibiotics switched to Zosyn 3. History of peptic ulcer disease 4. History of pancreatitis 5. History of gastrectomy 6. Chronic kidney disease stage III. Labs do appear on baseline 7. Chronic pain. Patient maintained on fentanyl patch 8. Neck pain. X-ray of cervical spine ordered DVT prophylaxis Lovenox. GI prophylaxis Protonix GI, surgical services, pulmonary and infectious disease service is consulted Status post EGD showing no obvious obstruction patient maintained on clear liquid diet Transfer to [facility] in the works but due to increase in COVID Cases bed availability limited
[2020-07-13] MEDS: HYDROmorphone 0.5 MG/0.5 ML SYRINGE IVP PRN ×4 (11:10→23:47)
--- NOTE | 2020-07-13 11:23 | P.PN ---
<Emily East - Last Filed: 07/13/20 11:19> Subjective Progress Note Date: 07/13/20 CHIEF COMPLAINT: Dysphagia HISTORY OF PRESENT ILLNESS: Patient is status post EGD which revealed normal- appearing esophagojejunostomy without obvious obstruction, hiatal hernia. Etiology for obstruction seen on upper GI unclear but may be related to transient kinking of the jejunal limb at the hiatal hernia site. Patient on full liquid diet. Patient is having dysphagia. She reports after swallowing the liquids it feels like it gets stuck and tries to work its way back up. Patient denies any vomiting. Denies any increase in her abdominal pain. She reports having bowel movements. Afebrile. Creatinine 1.36 Patient is awaiting for bed availability at [facility]. PHYSICAL EXAM: VITAL SIGNS: Reviewed. GENERAL: Well-developed in no acute distress. HEENT: No sclera icterus. Extraocular movements grossly intact. Moist buccal mucosa. Head is atraumatic, normocephalic. ABDOMEN: Soft. Nondistended. Minimal tenderness with palpation of epigastric area NEUROLOGIC: Alert and oriented. Cranial nerves II through XII grossly intact. ASSESSMENT: 1. Obstruction at the level of the diaphragm. Etiology for obstruction seen on upper GI unclear but may be related to transient kinking of the jejunal limb at the hiatal hernia site 2. Prior history of gastrectomy for peptic ulcer disease completed at [facility]. First surgery was in 1989 and second surgery 1994 3. Dysphagia 4. Nausea and vomiting PLAN: -Recommend tertiary care evaluation either inpatient or outpatient due to the complexity of this case -Awaiting transfer to [facility] -Continue full liquid diet -Continue antacids -Encouraged patient to eat slowly and only a small amount at a time. Physician [employer] note has been reviewed by physician. Signing provider agrees with the documented findings, assessment, and plan of care. Objective - Vital Signs Vital signs: Vital Signs Temp 97.7 F 07/13/20 07:47 Pulse 86 07/13/20 10:45 Resp 19 07/13/20 10:45 BP 113/71 07/13/20 07:47 Pulse Ox 99 07/13/20 07:47 Intake & Output 07/12/20 07/13/20 07/13/20 18:59 06:59 18:59 Intake Total 4700.833 1660 200 Balance 4700.833 1660 200 Weight 38.555 kg Intake: Intake, IV Titration 1720.833 960 Amount Mvi, Adult No.4 with Vit 980.833 K 10 ml Trace (Conc-1Ml/ Dose) 1 ml Sodium Acetate 34 meq Potassium Phosphate 15 mmol Magnesium Sulfate gm 1 gm In Amino Acid 5%-D15w 1, 000 ml @ 55 mls/hr IV . [id number] [facility] Rx#:[id number] Piperacillin-Tazobactam 3 100 .375 gm In Sodium Chloride 0.9% 100 ml @ 25 mls/hr IVPB Q12H [facility] Rx# :[id number] Sodium Chloride 0.9% 1, 640 960 000 ml @ 80 mls/hr IV . [id number] [facility] Rx#:[id number] Oral 2980 700 200 Other: Voiding Method Toilet # Voids 6 3 3 # Bowel Movements 1 - Labs CBC & Chem 7: 07/11/20 07:10 07/13/20 06:30 Labs: Abnormal Lab Results - Last 24 Hours (Table) 07/12/20 07/13/20 07/13/20 Range/Units 17:47 00:20 06:30 Sodium 136 L (137-145) mmol/L BUN 33 H (7-17) mg/dL Creatinine 1.36 H (0.52-1.04) mg/dL Glucose 108 H (74-99) mg/dL POC Glucose (mg/dL) 161 H 106 H (75-99) mg/dL Alkaline Phosphatase 192 H (38-126) U/L Total Protein 5.0 L (6.3-8.2) g/dL Albumin 2.8 L (3.5-5.0) g/dL <Nathan Guadalupe - Last Filed: 07/13/20 13:24> Subjective As above. Patient states the dysphagia is about the same as it has been. Mild reflux symptoms. No vomiting. Continue full liquids. Awaiting transfer. I will be covered over the weekend by Dr. Torres. I will notify her that she does not need to see this patient unless contacted. I will be back on Thursday if patient has not been transferred by that time. Objective - Vital Signs Vital signs: Vital Signs Temp 97.9 F 07/13/20 12:35 Pulse 82 07/13/20 12:35 Resp 18 07/13/20 12:35 BP 116/65 07/13/20 12:35 Pulse Ox 98 07/13/20 12:35 Intake & Output 07/12/20 07/13/20 07/13/20 18:59 06:59 18:59 Intake Total 4700.833 1660 200 Balance 4700.833 1660 200 Weight 38.555 kg 38.555 kg Intake: Intake, IV Titration 1720.833 960 Amount Mvi, Adult No.4 with Vit 980.833 K 10 ml Trace (Conc-1Ml/ Dose) 1 ml Sodium Acetate 34 meq Potassium Phosphate 15 mmol Magnesium Sulfate gm 1 gm In Amino Acid 5%-D15w 1, 000 ml @ 55 mls/hr IV . [id number] [facility] Rx#:[id number] Piperacillin-Tazobactam 3 100 .375 gm In Sodium Chloride 0.9% 100 ml @ 25 mls/hr IVPB Q12H [facility] Rx# :[id number] Sodium Chloride 0.9% 1, 640 960 000 ml @ 80 mls/hr IV . [id number] [facility] Rx#:[id number] Oral 2980 700 200 Other: Voiding Method Toilet # Voids 6 3 3 # Bowel Movements 1 - Labs CBC & Chem 7: 07/11/20 07:10 07/13/20 06:30 Labs: Abnormal Lab Results - Last 24 Hours (Table) 07/12/20 07/13/20 07/13/20 Range/Units 17:47 00:20 06:30 Sodium 136 L (137-145) mmol/L BUN 33 H (7-17) mg/dL Creatinine 1.36 H (0.52-1.04) mg/dL Glucose 108 H (74-99) mg/dL POC Glucose (mg/dL) 161 H 106 H (75-99) mg/dL Alkaline Phosphatase 192 H (38-126) U/L Total Protein 5.0 L (6.3-8.2) g/dL Albumin 2.8 L (3.5-5.0) g/dL 07/13/20 Range/Units 12:08 Sodium (137-145) mmol/L BUN (7-17) mg/dL Creatinine (0.52-1.04) mg/dL Glucose (74-99) mg/dL POC Glucose (mg/dL) 124 H (75-99) mg/dL Alkaline Phosphatase (38-126) U/L Total Protein (6.3-8.2) g/dL Albumin (3.5-5.0) g/dL
[2020-07-13 12:10] LABS: Glucose,Whole Blood 124 mg/dL (75-99)
[2020-07-13] MEDS: ALBUTEROL HFA INHALER INHALATION PRN ×2 (12:30→19:39)
--- NOTE | 2020-07-13 15:51 | PN ---
PROGRESS NOTE DATE OF SERVICE: 07/13/2020 REASON FOR FOLLOWUP: Aspiration pneumonia. INTERVAL HISTORY: The patient is currently afebrile. The patient is breathing comfortably. Patient denies having any chest pain or shortness of breath or cough. No nausea, no vomiting. No abdominal pain, no diarrhea. PHYSICAL EXAMINATION: Blood pressure 116/65, pulse 82, temperature 97.9. She is 98% on room air. General description is an elderly female up in the bed in no distress. RESPIRATORY SYSTEM: Unlabored breathing, decreased breath sounds at the bases. No wheeze. HEART: S1, S2. Regular rate and rhythm. ABDOMEN: Soft, no tenderness. LABS: No new labs have been obtained today. DIAGNOSTIC IMPRESSION AND PLAN: Patient admitted to the hospital with acute nausea, vomiting, in this patient who did have evidence of obstruction jejunal limb the patient. Recommended transfer to tertiary care. Currently waiting for transfer to [facility]. Patient is covered with Zosyn to continue and monitor clinical course closely. MMODL / IJN: [id number] /
--- NOTE | 2020-07-13 16:31 | XR ---
EXAMINATION TYPE: XR cervical spine comp DATE OF EXAM: 07/13/2020 CLINICAL HISTORY: pain COMPARISON: NONE TECHNIQUE: Frontal, lateral, oblique, swimmers, and open mouth view of the cervical spine are obtaine d. FINDINGS: The cervical spine is visualized in its entirety from C1 thru the top of T1 level. It is s atisfactory in alignment without evidence of acute fracture or dislocation. The pre-vertebral soft t issue appears within normal limits. Mild scattered degenerative disc space narrowing. Grade 1 anterol isthesis of C4 on C5 and C5 on C6 measuring approximately 2 mm at each site. This is related to sever e degenerative change of the cervical apophyseal joints. The C1-C2 articulation is unremarkable on th e open mouth view. The oblique images are within normal limits. IMPRESSION: No acute fracture is seen in the cervical spine.ICD 10 NO FRACTURE, INITIAL EVALUATION
[2020-07-13 17:52] LABS: Glucose,Whole Blood 146 mg/dL (75-99)
[2020-07-13] MEDS: LORATADINE 10 MG TAB PO SCH (19:50)
[2020-07-13] MEDS: ONDANSETRON 4 MG/2 ML VIAL IVP PRN (19:51)
[2020-07-14 00:01] LABS: Glucose,Whole Blood 97 mg/dL (75-99)
[2020-07-14] MEDS: PIPERACILLIN-TAZOBACTAM 3.375 GM in SODIUM CHLORIDE 0.9% 100 ML IVPB SCH ×2 (03:19→15:20)
[2020-07-14 05:51] LABS: Glucose,Whole Blood 110 mg/dL (75-99)
[2020-07-14] MEDS: SODIUM CHLORIDE 0.9% 1,000 ML IV SCH ×2 (05:55→17:31)
[2020-07-14] MEDS: LEVOTHYROXINE 88 MCG TAB PO SCH (06:15)
[2020-07-14] MEDS: HYDROmorphone 0.5 MG/0.5 ML SYRINGE IVP PRN ×5 (06:17→20:24)
[2020-07-14 06:27] LABS: Ionized Calcium 5.2 mg/dL (4.5-5.3)
[2020-07-14] MEDS: hydrOXYzine pamoate 25 MG CAP PO SCH ×3 (07:55→20:50)
[2020-07-14] MEDS: ENOXAPARIN 30 MG/0.3 ML SYRINGE SQ SCH (07:55)
[2020-07-14] MEDS: busPIRone HCl 10 MG TAB PO SCH ×2 (07:56→20:50)
[2020-07-14] MEDS: buPROPion XL 300 MG TAB.ER.24H PO SCH (07:56)
[2020-07-14] MEDS: THIAMINE 100 MG TAB PO SCH (07:57)
[2020-07-14] MEDS: FERROUS SULFATE 325 MG TAB PO SCH ×2 (07:57→20:50)
[2020-07-14] MEDS: FOLIC ACID 1 MG TAB PO SCH (07:57)
[2020-07-14] MEDS: FUROSEMIDE 20 MG TAB PO SCH (07:57)
[2020-07-14] MEDS: PANTOPRAZOLE 40 MG TABLET PO SCH ×2 (07:57→20:50)
[2020-07-14] MEDS: DULoxetine HCL 60 MG CAPSULE.DR PO SCH (07:57)
[2020-07-14] MEDS: HYDROcodone/APAP 5-325MG 1 EACH TAB PO PRN ×2 (08:06→14:27)
[2020-07-14] MEDS: SYMBICORT 160-4.5 MCG INHALER INHALATION SCH ×2 (08:19→20:23)
[2020-07-14] MEDS: ALBUTEROL HFA INHALER INHALATION PRN ×3 (08:19→20:23)
[2020-07-14 08:59] LABS: Basophils # (A) 0.07 X 10*3/uL (0.00-0.10); Basophils % (A) 0.9 %; Eosinophils # (A) 0.36 X 10*3/uL (0.04-0.35); Eosinophils % (A) 4.5 %; HCT 29.4 % (37.2-46.3); HGB 8.8 g/dL (12.0-15.0); Lymphocytes # (A) 1.37 X 10*3/uL (0.90-5.00); MCH 28.2 pg (27.0-32.0); MCHC 29.9 g/dL (32.0-37.0); MCV 94.2 fL (80.0-97.0); Mean Platelet Volume 9.2 fL (9.5-12.2); Monocytes # (A) 0.72 X 10*3/uL (0.20-1.00); Neutrophils # (A) 5.48 X 10*3/uL (1.80-7.70); Neutrophils % (A) 68.1 %; Platelet Count 330 X 10*3/uL (140-440); RBC 3.12 X 10*6/uL (4.10-5.20); RDW 18.8 % (11.5-14.5); WBC 8.04 X 10*3/uL (4.50-10.00)
[2020-07-14 09:27] LABS: African American GFR (CKD) 47.1 (60.0-200.0); Albumin 3.1 g/dL (3.80-4.90); Albumin/Globulin Ratio 1.82 (1.60-3.17); Anion Gap 8.5 mmol/L (4.00-12.00); BUN/Creat Ratio 26.92 Ratio (12.00-20.00); Calcium 8.5 mg/dL (8.7-10.3); Carbon Dioxide 26.5 mmol/L (21.6-31.8); Globulin 1.7 g/dL (1.6-3.3); Magnesium 2.7 mg/dL (1.5-2.4); Non-African American GFR(CKD) 40.7 (60.0-200.0); Phosphorus 3.8 mg/dL (2.4-5.1); Total Bilirubin 0.1 mg/dL (0.3-1.2); Total Protein 4.8 g/dL (6.2-8.2)
[2020-07-14] MEDS: CHOLESTYRAMINE (WITH SUGAR) 4 GM PACKET PO SCH ×2 (09:37→20:49)
[2020-07-14 11:46] LABS: Glucose,Whole Blood 109 mg/dL (75-99)
[2020-07-14] MEDS: BUTALB/APAP/CAFF 50-325-40MG TAB PO PRN ×3 (12:27→19:39)
[2020-07-14] MEDS: ONDANSETRON 4 MG/2 ML VIAL IVP PRN ×2 (13:05→20:05)
--- NOTE | 2020-07-14 14:03 | P.PN ---
Subjective Progress Note Date: 07/14/20 CHIEF COMPLAINT: Intractable nausea and vomiting HISTORY OF PRESENT ILLNESS: The patient is a 75-year-old female admitted for intractable nausea and vomiting. She history of subtotal gastrectomy with enterostomy recreation at least twice for gastric ulcer disease. Both procedures were done over 30 years ago. She had a recent upper endoscopy with findings of esophagojejunostomy and hiatal hernia, 07/10/2020. She has been tolerating liquid diet although with complaints of intermittent dysphagia. She is resting comfortably. ROS: No fevers or chills. She is underway, BMI 15.5. PHYSICAL EXAM: VITAL SIGNS: Reviewed CONSTITUTIONAL: Well developed and in no acute distress. EYES: Conjuctivae without sclera icterus. Extraocular movements grossly intact. HEAD, EARS, NOSE, THROAT: Moist buccal mucosa. Head is atraumatic, normocephalic. Hears conversational speech. No nasal drainage. NECK: Supple. No thyroidomegaly. RESPIRATORY: Non-labored respirations and equal bilateral excursions. CARDIOVASCULAR: Palpable 2+ radial pulses. Regular rate. Regular rhythm. ABDOMEN: No peritonitis. Scaphoid. MUSCULOSKELETAL: No gross deformity of the lower extremities noted. No clubbing. No cyanosis. SKIN: Good skin turgor. Well perfused. NEUROLOGIC: Cranial nerves II through XII grossly intact. No focal or lateralizing signs. PSYCH: Appropriate affect. Alert and oriented to person, place and time. CLINICAL LABS: White blood cell count normal, 8.04. Hemoglobin low 8.8, with an emia ASSESSMENT: 1. Esophagojejunostomy with hiatal hernia 2. Dysphagia PLAN: 1. Patient presents with a very complicated surgical history which transferred to tertiary care center is advised 2. Continue liquid diet as tolerated Objective - Vital Signs Vital signs: Vital Signs Temp 97.6 F 07/14/20 11:28 Pulse 82 07/14/20 11:28 Resp 16 07/14/20 11:28 BP 112/65 07/14/20 11:28 Pulse Ox 96 07/14/20 11:28 Intake & Output 07/13/20 07/14/20 07/14/20 18:59 06:59 18:59 Intake Total 1260 1100 Balance 1260 1100 Weight 38.555 kg Intake: Intake, IV Titration 1060 740 Amount Piperacillin-Tazobactam 3 100 100 .375 gm In Sodium Chloride 0.9% 100 ml @ 25 mls/hr IVPB Q12H [facility] Rx# :[id number] Sodium Chloride 0.9% 1, 960 640 000 ml @ 80 mls/hr IV . [id number] [facility] Rx#:[id number] Oral 200 360 Other: Voiding Method Toilet # Voids 3 3 - Labs CBC & Chem 7: 07/14/20 06:06 07/14/20 06:06 Labs: Abnormal Lab Results - Last 24 Hours (Table) 07/13/20 07/14/20 07/14/20 Range/Units 17:50 05:48 06:06 RBC (4.10-5.20) X 10*6/uL Hgb (12.0-15.0) g/dL Hct (37.2-46.3) % MCHC (32.0-37.0) g/dL RDW (11.5-14.5) % MPV (9.5-12.2) fL Eosinophils # (0.04-0.35) X 10*3/uL BUN 35.0 H (9.0-27.0) mg/dL Est GFR (CKD-EPI)AfAm 47.1 L (60.0-200.0) Est GFR (CKD-EPI)NonAf 40.7 L (60.0-200.0) BUN/Creatinine Ratio 26.92 H (12.00-20.00) Ratio Glucose 113 H (70-110) mg/dL POC Glucose (mg/dL) 146 H 110 H (75-99) mg/dL Calcium 8.5 L (8.7-10.3) mg/dL Magnesium 2.7 H (1.5-2.4) mg/dL Total Bilirubin 0.1 L (0.3-1.2) mg/dL Alkaline Phosphatase 231 H (41-126) U/L Total Protein 4.8 L (6.2-8.2) g/dL Albumin 3.10 L (3.80-4.90) g/dL 07/14/20 07/14/20 Range/Units 06:06 11:29 RBC 3.12 L (4.10-5.20) X 10*6/uL Hgb 8.8 L (12.0-15.0) g/dL Hct 29.4 L (37.2-46.3) % MCHC 29.9 L (32.0-37.0) g/dL RDW 18.8 H (11.5-14.5) % MPV 9.2 L (9.5-12.2) fL Eosinophils # 0.36 H (0.04-0.35) X 10*3/uL BUN (9.0-27.0) mg/dL Est GFR (CKD-EPI)AfAm (60.0-200.0) Est GFR (CKD-EPI)NonAf (60.0-200.0) BUN/Creatinine Ratio (12.00-20.00) Ratio Glucose (70-110) mg/dL POC Glucose (mg/dL) 109 H (75-99) mg/dL Calcium (8.7-10.3) mg/dL Magnesium (1.5-2.4) mg/dL Total Bilirubin (0.3-1.2) mg/dL Alkaline Phosphatase (41-126) U/L Total Protein (6.2-8.2) g/dL Albumin (3.80-4.90) g/dL Assessment and Plan (1) Dysphagia Current Visit: Yes Status: Acute Code(s): R13.10 - DYSPHAGIA, UNSPECIFIED SNOMED Code(s): 90449002 (2) History of gastrectomy Current Visit: Yes Status: Acute Code(s): Z90.3 - ACQUIRED ABSENCE OF STOMACH [PART OF] SNOMED Code(s): 741500471 (3) Nausea and vomiting Current Visit: Yes Status: Acute Code(s): R11.2 - NAUSEA WITH VOMITING, UNSPECIFIED SNOMED Code(s): 01125752
--- NOTE | 2020-07-14 15:17 | P.PN ---
Subjective Progress Note Date: 07/14/20 This is a 75-year-old female patient who presents to the ER with complaints of nausea and vomiting. Patient was recently discharged and treated for pneumonia. Patient reports that she was unable to take her antibiotic without vomiting which prompted her to come the ER for further evaluation. Patient has a past medical history of asthma, DVT, GERD, memory impairment, pancreatitis and chronic pain. Head CT was performed in ER showing negative unenhanced head CT scan no change. Chest x-ray performed showing bilateral pulmonary infiltrates similar to recent exam failure. Started on IV Rocephin for pneumonia and pulmonary service is consulted. GI service is consulted for the nausea Protonix and Zofran ordered. Creatinine 1.59 and bun 30 this does appear on patient's baseline. At this time patient is resting comfortably in bed states she has been able to keep down sara maximino. Patient denies chest pain. Patient does report some wheezing and coughing. Patient denies any urinary burning or frequency. Patient denies any diarrhea On 07/09/2020 patient was seen and examined on the medical floor she is alert and oriented 3 in no apparent distress she is complaining of nausea and vom iting otherwise she denies any complaints at this time barium swallow evaluation revealed evidence of obstruction at the liver of diaphragmatic surgical consultation requested and the recommendation for surgery is to transfer patient to [facility] where she had her previous gastrectomy otherwise patient is doing well there is no fever or chills no headache or dizziness no chest pain no abdominal pain no diarrhea no blood in the stools no burning with urination no frequency or urgency and no hematuria patient is having recurrent episodes of vomiting and is unable to keep any food down at this time will ask for a PICC line placement patient will be started on TPN transfer to [facility] was initiated On 07/10/2020 patient is alert and oriented 3 requesting increasing pain medication. Plans for EGD today per surgical services and transferred you a vomiting process. PICC line in place. IV antibiotics changed to Zosyn per pulmonary. At this time patient denies any chest pain or shortness of breath. Denies any urinary burning or frequency. Patient complaining of abdominal pain and nausea vomiting. On 07/11/2020 patient was seen and examined on the medical floor she is alert and oriented 3 in no distress she is able to tolerate liquid diet well there is no fever or chills no headache or dizziness no chest pain no shortness of breath no cough no nausea or vomiting no abdominal pain no diarrhea no blood in the stools no burning with urination no frequency or urgency and no hematuria On 07/12/2020 patient was seen and examined on the medical floor she is alert and oriented 3 in no apparent distress, she is able to tolerate full liquid d iet well there is no fever or chills no headache or dizziness no chest pain no shortness of breath no cough no nausea or vomiting no abdominal pain no diarrhea no blood in the stools no burning with urination no frequency or urgency and no hematuria. At this time chances that patient will be transferred to [facility] are small due to current increase in Covid 19 cases and no available beds at [facility] plan is to continue to advance diet slowly and continue with IV antibiotics if patient is stable she can be discharged to a rehab center and follow-up with surgical department at [facility] as outpatient On 07/13/2020 patient's alert and oriented 3. Patient has been tolerating full liquid diet. Reports that she has been up out of bed. Patient remains on TPN and lipids. Remains on IV Zosyn. Surgical and infectious disease services following. Patient requesting x-ray be done of her neck due to increased pain. At this time patient denies chest pain or shortness breath. Patient denies any diarrhea. Patient denies any urinary burning or frequency On 07/14/2020 patient was seen and examined on the medical floor she is alert and oriented 3 in no apparent distress she is able to tolerate liquid diet well, she is still maintained on IV Zosyn and on TPN with lipids, patient cond ition is improving significantly, we are awaiting possible transfer to [facility] for evaluation of difficulty swallowing with recurrent aspiration pneumonia, patient had a previous gastrectomy at [facility] 25 years ago, however if there are no available bed to transfer in the next 2 days, patient could be discharged home and arrangement will be made as outpatient to follow-up at the surgical department of [facility]. Objective - Vital Signs Vital signs: Vital Signs Temp 97.6 F 07/14/20 03:23 Pulse 81 07/14/20 03:23 Resp 16 07/14/20 03:23 BP 111/69 07/14/20 03:23 Pulse Ox 96 07/14/20 03:23 Intake & Output 0307/14/20 07/14/20 18:59 06:59 18:59 Intake Total 1260 1100 Balance 1260 1100 Weight 38.555 kg Intake: Intake, IV Titration 1060 740 Amount Piperacillin-Tazobactam 3 100 100 .375 gm In Sodium Chloride 0.9% 100 ml @ 25 mls/hr IVPB Q12H [facility] Rx# :[id number] Sodium Chloride 0.9% 1, 960 640 000 ml @ 80 mls/hr IV . [id number] [facility] Rx#:[id number] Oral 200 360 Other: Voiding Method Toilet # Voids 3 3 - Exam in general patient is alert and oriented 3 in no apparent distress HEENT head normocephalic and atraumatic Chest supple no JVD no goiter no lymphadenopathy Chest exam reveals a few scattered crackles bilaterally no wheezing Cardiac exam reveals regular heart sounds no gallops no murmurs Abdomen is soft nontender no organomegaly with normal bowel sounds Extremity exam reveals no edema no cyanosis or clubbing - Labs CBC & Chem 7: 07/14/20 06:06 07/14/20 06:06 Labs: Abnormal Lab Results - Last 24 Hours (Table) 07/13/20 07/13/20 07/14/20 Range/Units 12:08 17:50 05:48 RBC (4.10-5.20) X 10*6/uL Hgb (12.0-15.0) g/dL Hct (37.2-46.3) % MCHC (32.0-37.0) g/dL RDW (11.5-14.5) % MPV (9.5-12.2) fL Eosinophils # (0.04-0.35) X 10*3/uL POC Glucose (mg/dL) 124 H 146 H 110 H (75-99) mg/dL 07/14/20 Range/Units 06:06 RBC 3.12 L (4.10-5.20) X 10*6/uL Hgb 8.8 L (12.0-15.0) g/dL Hct 29.4 L (37.2-46.3) % MCHC 29.9 L (32.0-37.0) g/dL RDW 18.8 H (11.5-14.5) % MPV 9.2 L (9.5-12.2) fL Eosinophils # 0.36 H (0.04-0.35) X 10*3/uL POC Glucose (mg/dL) (75-99) mg/dL Assessment and Plan Assessment: 1. Intractable vomiting. Zofran ordered. GI service is consulted. Amylase and lipase ordered, she was found to have an obstruction at the level of the diaphragm, patient will be started on TPN today as she is having constant vomiting, recommendation for surgery is to transfer to [facility] where she had her previous gastrectomy, transfer was initiated today. 2. Pneumonia. Patient recently discharged on antibiotics. We'll also consult infectious disease due to possible aspiration. Antibiotics switched to Zosyn 3. History of peptic ulcer disease 4. History of pancreatitis 5. History of gastrectomy 6. Chronic kidney disease stage III. Labs do appear on baseline 7. Chronic pain. Patient maintained on fentanyl patch 8. Neck pain. X-ray of cervical spine ordered DVT prophylaxis Lovenox. GI prophylaxis Protonix GI, surgical services, pulmonary and infectious disease service is consulted Status post EGD showing no obvious obstruction patient maintained on clear liquid diet Transfer to [facility] in the works but due to increase in COVID Cases bed availability limited
[2020-07-14 17:27] LABS: Glucose,Whole Blood 110 mg/dL (75-99)
[2020-07-14] MEDS: MVI, ADULT NO.4 WITH VIT K 10 ML, TRACE (CONC-1ML/DOSE) 1 ML, SODIUM ACETATE 34 MEQ, PO... IV SCH ×5 (18:05)
--- NOTE | 2020-07-14 18:21 | PN ---
PROGRESS NOTE DATE OF SERVICE: 07/14/2020 REASON FOR FOLLOWUP: Aspiration pneumonia. INTERVAL HISTORY: Patient is currently afebrile. The patient is breathing comfortably. Denies any chest pain. No shortness of breath or cough. No abdominal pain. No further vomiting. PHYSICAL EXAMINATION: Blood pressure 112/65, pulse of 82, temperature is 97.6. He is 96% on room air. General description: The patient is an elderly female lying in bed in no distress. Respiratory system: Unlabored breathing, is clear to auscultation anteriorly. Heart S1, S2. Regular rate and rhythm. Abdomen soft, no tenderness. LABS: Hemoglobin 8.1, white count 8.04. BUN of 35, creatinine 1.3. DIAGNOSTIC IMPRESSION AND PLAN: Patient admitted to the hospital with nausea and vomiting concern for possible aspiration pneumonia. Patient did have evidence of a gastric outlet obstruction for which the patient is currently awaiting for transfer to the [facility]. Patient covered with Zosyn to continue while monitoring clinical course closely. MMODL / IJN: [id number] /
[2020-07-14] MEDS: LORATADINE 10 MG TAB PO SCH (20:50)
[2020-07-14] MEDS: SUMAtriptan succinate 50 MG TAB PO PRN (22:08)
[2020-07-15] MEDS: HYDROmorphone 0.5 MG/0.5 ML SYRINGE IVP PRN ×5 (00:30→22:07)
[2020-07-15] MEDS: MIRTAZAPINE 45 MG TABLET PO SCH ×2 (00:30→23:42)
[2020-07-15 00:36] LABS: Glucose,Whole Blood 130 mg/dL (75-99)
[2020-07-15] MEDS: BUTALB/APAP/CAFF 50-325-40MG TAB PO PRN ×3 (02:17→15:17)
[2020-07-15] MEDS: PIPERACILLIN-TAZOBACTAM 3.375 GM in SODIUM CHLORIDE 0.9% 100 ML IVPB SCH ×2 (04:38→15:16)
[2020-07-15 05:58] LABS: Glucose,Whole Blood 113 mg/dL (75-99)
[2020-07-15] MEDS: LEVOTHYROXINE 88 MCG TAB PO SCH (06:22)
[2020-07-15 07:47] LABS: Anisocytosis Slight; Basophils % (A) 1 %; Eosinophils # (A) 0.3 k/uL (0-0.7); Eosinophils % (A) 5 %; HGB 9.6 gm/dL (11.4-16.0); Hypochromasia Moderate; Lymphocytes # (A) 1.6 k/uL (1.0-4.8); Lymphocytes % (A) 21 %; MCH 30.5 pg (25.0-35.0); MCV 92.4 fL (80.0-100.0); Mean Platelet Volume 7.3; Monocytes # (A) 0.6 k/uL (0-1.0); Monocytes % (A) 8 %; Neutrophils # (A) 4.8 k/uL (1.3-7.7); Neutrophils % (A) 65 %; Platelet Count 335 k/uL (150-450); RBC 3.14 m/uL (3.80-5.40); RDW 18.5 % (11.5-15.5); WBC 7.4 k/uL (3.8-10.6)
[2020-07-15 07:58] LABS: ALT 24 U/L (4-34); AST 40 U/L (14-36); African American GFR (CKD) 47 (>60 ml/min/1.73 sqM); Albumin 2.7 g/dL (3.5-5.0); Albumin/Globulin Ratio 1.2; Alkaline Phosphatase 187 U/L (38-126); Anion Gap 5 mmol/L; Blood Urea Nitrogen 37 mg/dL (7-17); Calcium 8.5 mg/dL (8.4-10.2); Carbon Dioxide 30 mmol/L (22-30); Chloride 104 mmol/L (98-107); Globulin 2.2 g/dL; Glucose 101 mg/dL (74-99); Magnesium 2.2 mg/dL (1.6-2.3); Non-African American GFR(CKD) 41 (>60 ml/min/1.73 sqM); Phosphorus 3.9 mg/dL (2.5-4.5); Potassium 4.3 mmol/L (3.5-5.1); Sodium 139 mmol/L (137-145); Total Bilirubin 0.2 mg/dL (0.2-1.3); Total Protein 4.9 g/dL (6.3-8.2)
[2020-07-15] MEDS: SYMBICORT 160-4.5 MCG INHALER INHALATION SCH ×2 (08:35→20:40)
[2020-07-15] MEDS: ALBUTEROL HFA INHALER INHALATION PRN ×3 (08:36→20:40)
[2020-07-15] MEDS: FOLIC ACID 1 MG TAB PO SCH (09:03)
[2020-07-15] MEDS: FERROUS SULFATE 325 MG TAB PO SCH ×2 (09:03→22:05)
[2020-07-15] MEDS: PANTOPRAZOLE 40 MG TABLET PO SCH ×2 (09:03→22:05)
[2020-07-15] MEDS: DULoxetine HCL 60 MG CAPSULE.DR PO SCH (09:03)
[2020-07-15] MEDS: THIAMINE 100 MG TAB PO SCH (09:03)
[2020-07-15] MEDS: FUROSEMIDE 20 MG TAB PO SCH (09:03)
[2020-07-15] MEDS: busPIRone HCl 10 MG TAB PO SCH ×2 (09:04→22:04)
[2020-07-15] MEDS: CHOLESTYRAMINE (WITH SUGAR) 4 GM PACKET PO SCH ×2 (09:04→22:05)
[2020-07-15] MEDS: buPROPion XL 300 MG TAB.ER.24H PO SCH (09:04)
[2020-07-15] MEDS: ENOXAPARIN 30 MG/0.3 ML SYRINGE SQ SCH (09:05)
[2020-07-15] MEDS: hydrOXYzine pamoate 25 MG CAP PO SCH ×3 (09:05→22:06)
[2020-07-15] MEDS: HYDROcodone/APAP 5-325MG 1 EACH TAB PO PRN ×2 (09:11→20:07)
--- NOTE | 2020-07-15 09:51 | P.PN ---
Subjective Progress Note Date: 07/15/20 This is a 75-year-old female patient who presents to the ER with complaints of nausea and vomiting. Patient was recently discharged and treated for pneumonia. Patient reports that she was unable to take her antibiotic without vomiting which prompted her to come the ER for further evaluation. Patient has a past medical history of asthma, DVT, GERD, memory impairment, pancreatitis and chronic pain. Head CT was performed in ER showing negative unenhanced head CT scan no change. Chest x-ray performed showing bilateral pulmonary infiltrates similar to recent exam failure. Started on IV Rocephin for pneumonia and pulmonary service is consulted. GI service is consulted for the nausea Protonix and Zofran ordered. Creatinine 1.59 and bun 30 this does appear on patient's baseline. At this time patient is resting comfortably in bed states she has been able to keep down sara maximino. Patient denies chest pain. Patient does report some wheezing and coughing. Patient denies any urinary burning or frequency. Patient denies any diarrhea On 07/09/2020 patient was seen and examined on the medical floor she is alert and oriented 3 in no apparent distress she is complaining of nausea and vom iting otherwise she denies any complaints at this time barium swallow evaluation revealed evidence of obstruction at the liver of diaphragmatic surgical consultation requested and the recommendation for surgery is to transfer patient to [facility] where she had her previous gastrectomy otherwise patient is doing well there is no fever or chills no headache or dizziness no chest pain no abdominal pain no diarrhea no blood in the stools no burning with urination no frequency or urgency and no hematuria patient is having recurrent episodes of vomiting and is unable to keep any food down at this time will ask for a PICC line placement patient will be started on TPN transfer to [facility] was initiated On 07/10/2020 patient is alert and oriented 3 requesting increasing pain medication. Plans for EGD today per surgical services and transferred you a vomiting process. PICC line in place. IV antibiotics changed to Zosyn per pulmonary. At this time patient denies any chest pain or shortness of breath. Denies any urinary burning or frequency. Patient complaining of abdominal pain and nausea vomiting. On 07/11/2020 patient was seen and examined on the medical floor she is alert and oriented 3 in no distress she is able to tolerate liquid diet well there is no fever or chills no headache or dizziness no chest pain no shortness of breath no cough no nausea or vomiting no abdominal pain no diarrhea no blood in the stools no burning with urination no frequency or urgency and no hematuria On 07/12/2020 patient was seen and examined on the medical floor she is alert and oriented 3 in no apparent distress, she is able to tolerate full liquid d iet well there is no fever or chills no headache or dizziness no chest pain no shortness of breath no cough no nausea or vomiting no abdominal pain no diarrhea no blood in the stools no burning with urination no frequency or urgency and no hematuria. At this time chances that patient will be transferred to [facility] are small due to current increase in Covid 19 cases and no available beds at [facility] plan is to continue to advance diet slowly and continue with IV antibiotics if patient is stable she can be discharged to a rehab center and follow-up with surgical department at [facility] as outpatient On 07/13/2020 patient's alert and oriented 3. Patient has been tolerating full liquid diet. Reports that she has been up out of bed. Patient remains on TPN and lipids. Remains on IV Zosyn. Surgical and infectious disease services following. Patient requesting x-ray be done of her neck due to increased pain. At this time patient denies chest pain or shortness breath. Patient denies any diarrhea. Patient denies any urinary burning or frequency On 07/14/2020 patient was seen and examined on the medical floor she is alert and oriented 3 in no apparent distress she is able to tolerate liquid diet well, she is still maintained on IV Zosyn and on TPN with lipids, patient cond ition is improving significantly, we are awaiting possible transfer to [facility] for evaluation of difficulty swallowing with recurrent aspiration pneumonia, patient had a previous gastrectomy at [facility] 25 years ago, however if there are no available bed to transfer in the next 2 days, patient could be discharged home and arrangement will be made as outpatient to follow-up at the surgical department of [facility]. On 07/15/2020 patient was seen and examined on the medical floor she is alert and oriented times 3 in no distress she is complaining of occasional cough, she also stated that she had episodes of nausea and vomiting last night otherwise there is no fever or chills no headache or dizziness no chest pain no shortness of breath, no abdominal pain no diarrhea no blood in the stools no burning with urination no frequency or urgency and no hematuria Objective - Vital Signs Vital signs: Vital Signs Temp 97.9 F 07/15/20 05:00 Pulse 83 07/15/20 05:00 Resp 16 07/15/20 05:00 BP 137/78 07/15/20 05:00 Pulse Ox 97 07/15/20 05:00 Intake & Output 07/14/20 07/15/20 07/15/20 18:59 06:59 18:59 Intake Total 3660 Output Total 1 1 Balance 3659 -1 Intake: Intake, IV Titration 1240 Amount Mvi, Adult No.4 with Vit 660 K 10 ml Trace (Conc-1Ml/ Dose) 1 ml Sodium Acetate 34 meq Potassium Phosphate 15 mmol In Amino Acid 5%-D15w 1,000 ml @ 55 mls/hr IV . [id number] [facility] Rx#:[id number] Piperacillin-Tazobactam 3 100 .375 gm In Sodium Chloride 0.9% 100 ml @ 25 mls/hr IVPB Q12H [facility] Rx# :[id number] Sodium Chloride 0.9% 1, 480 000 ml @ 80 mls/hr IV . [id number] [facility] Rx#:[id number] Oral 2420 Output: Stool 1 1 Other: Voiding Method Toilet # Voids 4 - Exam in general patient is alert and oriented 3 in no apparent distress HEENT head normocephalic and atraumatic Chest supple no JVD no goiter no lymphadenopathy Chest exam reveals a few scattered crackles bilaterally no wheezing Cardiac exam reveals regular heart sounds no gallops no murmurs Abdomen is soft nontender no organomegaly with normal bowel sounds Extremity exam reveals no edema no cyanosis or clubbing - Labs CBC & Chem 7: 07/15/20 07:08 07/15/20 07:08 Labs: Abnormal Lab Results - Last 24 Hours (Table) 07/14/20 07/14/20 07/15/20 Range/Units 11:29 17:23 00:35 RBC (3.80-5.40) m/uL Hgb (11.4-16.0) gm/dL Hct (34.0-46.0) % RDW (11.5-15.5) % BUN (7-17) mg/dL Creatinine (0.52-1.04) mg/dL Glucose (74-99) mg/dL POC Glucose (mg/dL) 109 H 110 H 130 H (75-99) mg/dL AST (14-36) U/L Alkaline Phosphatase (38-126) U/L Total Protein (6.3-8.2) g/dL Albumin (3.5-5.0) g/dL 07/15/20 07/15/20 07/15/20 Range/Units 05:57 07:08 07:08 RBC 3.14 L (3.80-5.40) m/uL Hgb 9.6 L (11.4-16.0) gm/dL Hct 29.0 L (34.0-46.0) % RDW 18.5 H (11.5-15.5) % BUN 37 H (7-17) mg/dL Creatinine 1.30 H (0.52-1.04) mg/dL Glucose 101 H (74-99) mg/dL POC Glucose (mg/dL) 113 H (75-99) mg/dL AST 40 H (14-36) U/L Alkaline Phosphatase 187 H (38-126) U/L Total Protein 4.9 L (6.3-8.2) g/dL Albumin 2.7 L (3.5-5.0) g/dL Assessment and Plan Assessment: 1. Intractable vomiting. Zofran ordered. GI service is consulted. Amylase and lipase ordered, she was found to have an obstruction at the level of the diaphragm, patient will be started on TPN today as she is having constant vomiting, recommendation for surgery is to transfer to [facility] where she had her previous gastrectomy, transfer was initiated today. 2. Pneumonia. Patient recently discharged on antibiotics. We'll also consult infectious disease due to possible aspiration. Antibiotics switched to Zosyn 3. History of peptic ulcer disease 4. History of pancreatitis 5. History of gastrectomy 6. Chronic kidney disease stage III. Labs do appear on baseline 7. Chronic pain. Patient maintained on fentanyl patch 8. Neck pain. X-ray of cervical spine ordered DVT prophylaxis Lovenox. GI prophylaxis Protonix GI, surgical services, pulmonary and infectious disease service is consulted Status post EGD showing no obvious obstruction patient maintained on clear liquid diet Transfer to [facility] in the works but due to increase in COVID Cases bed availability limited
[2020-07-15] MEDS: MVI, ADULT NO.4 WITH VIT K 10 ML, TRACE (CONC-1ML/DOSE) 1 ML, SODIUM ACETATE 34 MEQ, PO... IV SCH ×5 (10:32)
[2020-07-15] MEDS: SODIUM CHLORIDE 0.9% 1,000 ML IV SCH (10:34)
[2020-07-15 11:27] LABS: Glucose,Whole Blood 187 mg/dL (75-99)
--- NOTE | 2020-07-15 16:10 | P.PN ---
Subjective Progress Note Date: 07/15/20 CHIEF COMPLAINT: Intractable nausea and vomiting HISTORY OF PRESENT ILLNESS: The patient is a 75-year-old female admitted for intractable nausea and vomiting. She history of subtotal gastrectomy with enterostomy recreation at least twice for gastric ulcer disease. Both procedures were done over 30 years ago. She had a recent upper endoscopy with findings of esophagojejunostomy and hiatal hernia, 07/10/2020. She reports emesis last night. She is on liquid diet. She is on TPN. ROS: No fevers or chills. She is underweight, BMI 15.5. She is having bowel movements. PHYSICAL EXAM: VITAL SIGNS: Reviewed CONSTITUTIONAL: Well developed and in no acute distress. EYES: Conjuctivae without sclera icterus. Extraocular movements grossly intact. HEAD, EARS, NOSE, THROAT: Moist buccal mucosa. Head is atraumatic, normocephalic. Hears conversational speech. No nasal drainage. NECK: Supple. No thyroidomegaly. RESPIRATORY: Non-labored respirations and equal bilateral excursions. CARDIOVASCULAR: Palpable 2+ radial pulses. Regular rate. Regular rhythm. ABDOMEN: No peritonitis. Scaphoid. MUSCULOSKELETAL: No gross deformity of the lower extremities noted. No clubbing. No cyanosis. SKIN: Good skin turgor. Well perfused. NEUROLOGIC: Cranial nerves II through XII grossly intact. No focal or lateralizing signs. PSYCH: Appropriate affect. Alert and oriented to person, place and time. CLINICAL LABS: White blood cell count normal, 7.4. Hemoglobin 9.6 with anemia. Albumin low at 2.7 ASSESSMENT: 1. Esophagojejunostomy with hiatal hernia 2. Dysphagia 3. Underweight 4. Anemia 5. Protein malnutrition. PLAN: 1. Continue diet as tolerated 2. Transfer to tertiary care center for further surgical care Objective - Vital Signs Vital signs: Vital Signs Temp 97.9 F 07/15/20 05:00 Pulse 83 07/15/20 05:00 Resp 16 07/15/20 05:00 BP 137/78 07/15/20 05:00 Pulse Ox 97 07/15/20 05:00 Intake & Output 07/14/20 07/15/20 07/15/20 18:59 06:59 18:59 Intake Total 3660 904.75 Output Total 1 1 Balance 3659 -1 904.75 Intake: Intake, IV Titration 1240 904.75 Amount Mvi, Adult No.4 with Vit 660 904.75 K 10 ml Trace (Conc-1Ml/ Dose) 1 ml Sodium Acetate 34 meq Potassium Phosphate 15 mmol In Amino Acid 5%-D15w 1,000 ml @ 55 mls/hr IV . [id number] [facility] Rx#:[id number] Piperacillin-Tazobactam 3 100 .375 gm In Sodium Chloride 0.9% 100 ml @ 25 mls/hr IVPB Q12H [facility] Rx# :[id number] Sodium Chloride 0.9% 1, 480 000 ml @ 80 mls/hr IV . [id number] [facility] Rx#:[id number] Oral 2420 Output: Stool 1 1 Other: Voiding Method Toilet # Voids 4 - Labs CBC & Chem 7: 07/15/20 07:08 07/15/20 07:08 Labs: Abnormal Lab Results - Last 24 Hours (Table) 07/14/20 07/14/20 07/15/20 Range/Units 11:29 17:23 00:35 RBC (3.80-5.40) m/uL Hgb (11.4-16.0) gm/dL Hct (34.0-46.0) % RDW (11.5-15.5) % BUN (7-17) mg/dL Creatinine (0.52-1.04) mg/dL Glucose (74-99) mg/dL POC Glucose (mg/dL) 109 H 110 H 130 H (75-99) mg/dL AST (14-36) U/L Alkaline Phosphatase (38-126) U/L Total Protein (6.3-8.2) g/dL Albumin (3.5-5.0) g/dL 07/15/20 07/15/20 07/15/20 Range/Units 05:57 07:08 07:08 RBC 3.14 L (3.80-5.40) m/uL Hgb 9.6 L (11.4-16.0) gm/dL Hct 29.0 L (34.0-46.0) % RDW 18.5 H (11.5-15.5) % BUN 37 H (7-17) mg/dL Creatinine 1.30 H (0.52-1.04) mg/dL Glucose 101 H (74-99) mg/dL POC Glucose (mg/dL) 113 H (75-99) mg/dL AST 40 H (14-36) U/L Alkaline Phosphatase 187 H (38-126) U/L Total Protein 4.9 L (6.3-8.2) g/dL Albumin 2.7 L (3.5-5.0) g/dL 07/15/20 Range/Units 11:15 RBC (3.80-5.40) m/uL Hgb (11.4-16.0) gm/dL Hct (34.0-46.0) % RDW (11.5-15.5) % BUN (7-17) mg/dL Creatinine (0.52-1.04) mg/dL Glucose (74-99) mg/dL POC Glucose (mg/dL) 187 H (75-99) mg/dL AST (14-36) U/L Alkaline Phosphatase (38-126) U/L Total Protein (6.3-8.2) g/dL Albumin (3.5-5.0) g/dL Assessment and Plan (1) Dysphagia Current Visit: Yes Status: Acute Code(s): R13.10 - DYSPHAGIA, UNSPECIFIED SNOMED Code(s): 59401421 (2) History of gastrectomy Current Visit: Yes Status: Acute Code(s): Z90.3 - ACQUIRED ABSENCE OF STOMACH [PART OF] SNOMED Code(s): 183435610 (3) Nausea and vomiting Current Visit: Yes Status: Acute Code(s): R11.2 - NAUSEA WITH VOMITING, UNSPECIFIED SNOMED Code(s): 87683670
[2020-07-15 17:14] LABS: Glucose,Whole Blood 112 mg/dL (75-99)
--- NOTE | 2020-07-15 20:03 | PN ---
PROGRESS NOTE DATE OF SERVICE: 07/15/2020 REASON FOR FOLLOWUP: Aspiration pneumonia. INTERVAL HISTORY: Patient is currently afebrile. The patient mentioned she did get sick to her stomach last night. Denies any episodes of vomiting. Denies having any chest pain. No shortness of breath. No worsening abdominal pain or diarrhea. PHYSICAL EXAMINATION: Blood pressure 117/59, pulse of 89, temperature 97.6. She is 96% on room air. General description is an elderly female lying in bed in no distress. Respiratory system: Unlabored breathing, clear to auscultation anteriorly. Heart S1, S2. Regular rate. ABDOMEN: Soft, no tenderness. No guarding. No rigidity. LABS: Hemoglobin 9.4, white count 7.4, creatinine 1.30. DIAGNOSTIC IMPRESSION AND PLAN: Patient with admission to hospital with nausea, vomiting with evidence of gastric outlet obstruction and concern for aspiration pneumonia. Patient is covered with Zosyn. Waiting transfer to for further surgical workup and continue supportive care. MMODL / IJN: [id number] /
[2020-07-15] MEDS: LORATADINE 10 MG TAB PO SCH (23:42)
[2020-07-15 23:48] LABS: Glucose,Whole Blood 119 mg/dL (75-99)
[2020-07-16] MEDS: PIPERACILLIN-TAZOBACTAM 3.375 GM in SODIUM CHLORIDE 0.9% 100 ML IVPB SCH ×3 (00:56→16:08)
[2020-07-16] MEDS: ONDANSETRON 4 MG/2 ML VIAL IVP PRN ×2 (01:02→20:01)
[2020-07-16] MEDS: SODIUM CHLORIDE 0.9% 1,000 ML IV SCH ×3 (03:00→22:28)
[2020-07-16] MEDS: HYDROmorphone 0.5 MG/0.5 ML SYRINGE IVP PRN ×5 (05:38→22:26)
[2020-07-16] MEDS: MVI, ADULT NO.4 WITH VIT K 10 ML, TRACE (CONC-1ML/DOSE) 1 ML, SODIUM ACETATE 34 MEQ, PO... IV SCH ×5 (05:41)
[2020-07-16] MEDS: LEVOTHYROXINE 88 MCG TAB PO SCH (05:54)
[2020-07-16 06:08] LABS: Glucose,Whole Blood 108 mg/dL (75-99)
[2020-07-16 07:07] LABS: Anisocytosis Slight; Basophils # (A) 0.1 k/uL (0-0.2); Basophils % (A) 1 %; Eosinophils # (A) 0.4 k/uL (0-0.7); Eosinophils % (A) 5 %; HCT 30.8 % (34.0-46.0); HGB 9.4 gm/dL (11.4-16.0); Hypochromasia Moderate; Lymphocytes # (A) 1.3 k/uL (1.0-4.8); Lymphocytes % (A) 16 %; MCH 28.4 pg (25.0-35.0); MCHC 30.6 g/dL (31.0-37.0); Mean Platelet Volume 7.2; Monocytes # (A) 0.5 k/uL (0-1.0); Monocytes % (A) 6 %; Neutrophils # (A) 6.2 k/uL (1.3-7.7); Neutrophils % (A) 73 %; Platelet Count 326 k/uL (150-450); RBC 3.31 m/uL (3.80-5.40); RDW 18.5 % (11.5-15.5); WBC 8.5 k/uL (3.8-10.6)
[2020-07-16 07:11] LABS: ALT 33 U/L (4-34); AST 57 U/L (14-36); African American GFR (CKD) 45 (>60 ml/min/1.73 sqM); Albumin/Globulin Ratio 1.4; Alkaline Phosphatase 203 U/L (38-126); Anion Gap 4 mmol/L; Blood Urea Nitrogen 41 mg/dL (7-17); Calcium 8.7 mg/dL (8.4-10.2); Carbon Dioxide 30 mmol/L (22-30); Chloride 100 mmol/L (98-107); Globulin 2.2 g/dL; Glucose 102 mg/dL (74-99); Magnesium 2.1 mg/dL (1.6-2.3); Non-African American GFR(CKD) 39 (>60 ml/min/1.73 sqM); Phosphorus 3.7 mg/dL (2.5-4.5); Potassium 5.2 mmol/L (3.5-5.1); Sodium 134 mmol/L (137-145); Total Bilirubin 0.3 mg/dL (0.2-1.3); Total Protein 5.2 g/dL (6.3-8.2)
[2020-07-16 07:33] LABS: Triglycerides 229 mg/dL (<150)
[2020-07-16] MEDS: buPROPion XL 300 MG TAB.ER.24H PO SCH (07:44)
[2020-07-16] MEDS: busPIRone HCl 10 MG TAB PO SCH ×2 (07:45→21:49)
[2020-07-16] MEDS: FERROUS SULFATE 325 MG TAB PO SCH ×2 (07:46→21:48)
[2020-07-16] MEDS: DULoxetine HCL 60 MG CAPSULE.DR PO SCH (07:46)
[2020-07-16] MEDS: ENOXAPARIN 30 MG/0.3 ML SYRINGE SQ SCH (07:46)
[2020-07-16] MEDS: CHOLESTYRAMINE (WITH SUGAR) 4 GM PACKET PO SCH ×2 (07:46→21:39)
[2020-07-16] MEDS: FUROSEMIDE 20 MG TAB PO SCH (07:47)
[2020-07-16] MEDS: FOLIC ACID 1 MG TAB PO SCH (07:47)
[2020-07-16] MEDS: hydrOXYzine pamoate 25 MG CAP PO SCH ×3 (07:47→21:49)
[2020-07-16] MEDS: PANTOPRAZOLE 40 MG TABLET PO SCH ×2 (07:48→21:48)
[2020-07-16] MEDS: THIAMINE 100 MG TAB PO SCH (07:48)
[2020-07-16] MEDS: HYDROcodone/APAP 5-325MG 1 EACH TAB PO PRN ×2 (08:01→17:08)
[2020-07-16] MEDS: SYMBICORT 160-4.5 MCG INHALER INHALATION SCH ×2 (08:09→20:18)
[2020-07-16] MEDS: FAT EMULSION 20% 250 ML in EMPTY BAG 1 BAG IV SCH (10:18)
--- NOTE | 2020-07-16 10:47 | P.PN ---
<Emily East - Last Filed: 07/16/20 10:41> Subjective Progress Note Date: 07/16/20 CHIEF COMPLAINT: Dysphagia HISTORY OF PRESENT ILLNESS: Patient is status post EGD which revealed normal- appearing esophagojejunostomy without obvious obstruction, hiatal hernia. Etiology for obstruction seen on upper GI unclear but may be related to transient kinking of the jejunal limb at the hiatal hernia site. Patient on full liquid diet. Patient did have vomiting on Thursday. But reports no vomiting yesterday or this morning. She is still having issues with dysphagia. Denies any increase in her abdominal pain. She reports having bowel movements. Afebrile. WBC 8.5 Hgb 9.4 creatinine 1.35 potassium 5.2 Patient is awaiting for bed availability at [facility]. PHYSICAL EXAM: VITAL SIGNS: Reviewed. GENERAL: Well-developed in no acute distress. HEENT: No sclera icterus. Extraocular movements grossly intact. Moist buccal mucosa. Head is atraumatic, normocephalic. ABDOMEN: Soft. Nondistended. Minimal tenderness with palpation of epigastric area NEUROLOGIC: Alert and oriented. Cranial nerves II through XII grossly intact. ASSESSMENT: 1. Obstruction at the level of the diaphragm. Etiology for obstruction seen on upper GI unclear but may be related to transient kinking of the jejunal limb at the hiatal hernia site 2. Prior history of gastrectomy for peptic ulcer disease completed at [facility]. First surgery was in 1989 and second surgery 1994 3. Dysphagia 4. Nausea and vomiting 5. Esophagojejunostomy with hiatal hernia PLAN: -Recommend tertiary care evaluation for further surgical care -Awaiting bed availability for transfer to [facility] -Continue full liquid diet -Continue antacids Physician Office Machine Servicer Apprentice note has been reviewed by physician. Signing provider agrees with the documented findings, assessment, and plan of care. Objective - Vital Signs Vital signs: Vital Signs Temp 97.8 F 07/16/20 05:00 Pulse 79 07/16/20 08:25 Resp 16 07/16/20 08:25 BP 116/71 07/16/20 05:00 Pulse Ox 97 07/16/20 05:00 Intake & Output 07/15/20 07/16/20 07/16/20 18:59 06:59 18:59 Intake Total 2364.75 983 Output Total 1 Balance 2364.75 983 -1 Intake: Intake, IV Titration 1964.75 983 Amount Mvi, Adult No.4 with Vit 904.75 983 K 10 ml Trace (Conc-1Ml/ Dose) 1 ml Sodium Acetate 34 meq Potassium Phosphate 15 mmol In Amino Acid 5%-D15w 1,000 ml @ 55 mls/hr IV . [id number] [facility] Rx#:[id number] Piperacillin-Tazobactam 3 100 .375 gm In Sodium Chloride 0.9% 100 ml @ 25 mls/hr IVPB Q8HR [facility] Rx# :[id number] Sodium Chloride 0.9% 1, 960 000 ml @ 80 mls/hr IV . [id number] [facility] Rx#:[id number] Oral 400 Output: Stool 1 Other: Voiding Method Toilet Toilet # Voids 2 2 - Labs CBC & Chem 7: 07/16/20 06:00 07/16/20 06:00 Labs: Abnormal Lab Results - Last 24 Hours (Table) 07/15/20 07/15/20 07/15/20 Range/Units 11:15 17:09 23:47 RBC (3.80-5.40) m/uL Hgb (11.4-16.0) gm/dL Hct (34.0-46.0) % MCHC (31.0-37.0) g/dL RDW (11.5-15.5) % Sodium (137-145) mmol/L Potassium (3.5-5.1) mmol/L BUN (7-17) mg/dL Creatinine (0.52-1.04) mg/dL Glucose (74-99) mg/dL POC Glucose (mg/dL) 187 H 112 H 119 H (75-99) mg/dL AST (14-36) U/L Alkaline Phosphatase (38-126) U/L Total Protein (6.3-8.2) g/dL Albumin (3.5-5.0) g/dL Triglycerides (<150) mg/dL 07/16/20 07/16/20 07/16/20 Range/Units 06:00 06:00 06:07 RBC 3.31 L (3.80-5.40) m/uL Hgb 9.4 L (11.4-16.0) gm/dL Hct 30.8 L (34.0-46.0) % MCHC 30.6 L (31.0-37.0) g/dL RDW 18.5 H (11.5-15.5) % Sodium 134 L (137-145) mmol/L Potassium 5.2 H (3.5-5.1) mmol/L BUN 41 H (7-17) mg/dL Creatinine 1.35 H (0.52-1.04) mg/dL Glucose 102 H (74-99) mg/dL POC Glucose (mg/dL) 108 H (75-99) mg/dL AST 57 H (14-36) U/L Alkaline Phosphatase 203 H (38-126) U/L Total Protein 5.2 L (6.3-8.2) g/dL Albumin 3.0 L (3.5-5.0) g/dL Triglycerides 229 H (<150) mg/dL <Nathan Guadalupe - Last Filed: 07/16/20 13:32> Subjective As above. The patient did have some vomiting. Mild epigastric discomfort. Mostly has been tolerating her full liquids however. Encourage thinner liquids. Awaiting transfer. Objective - Vital Signs Vital signs: Vital Signs Temp 97.8 F 07/16/20 11:32 Pulse 84 07/16/20 11:32 Resp 16 07/16/20 11:32 BP 119/65 07/16/20 11:32 Pulse Ox 96 07/16/20 11:32 Intake & Output 07/15/20 07/16/20 07/16/20 18:59 06:59 18:59 Intake Total 2364.75 983 Output Total 1 Balance 2364.75 983 -1 Intake: Intake, IV Titration 1964.75 983 Amount Mvi, Adult No.4 with Vit 904.75 983 K 10 ml Trace (Conc-1Ml/ Dose) 1 ml Sodium Acetate 34 meq Potassium Phosphate 15 mmol In Amino Acid 5%-D15w 1,000 ml @ 55 mls/hr IV . [id number] [facility] Rx#:[id number] Piperacillin-Tazobactam 3 100 .375 gm In Sodium Chloride 0.9% 100 ml @ 25 mls/hr IVPB Q8HR [facility] Rx# :[id number] Sodium Chloride 0.9% 1, 960 000 ml @ 80 mls/hr IV . [id number] [facility] Rx#:[id number] Oral 400 Output: Stool 1 Other: Voiding Method Toilet Toilet # Voids 2 2 - Labs CBC & Chem 7: 07/16/20 06:00 07/16/20 06:00 Labs: Abnormal Lab Results - Last 24 Hours (Table) 07/15/20 07/15/20 07/16/20 Range/Units 17:09 23:47 06:00 RBC 3.31 L (3.80-5.40) m/uL Hgb 9.4 L (11.4-16.0) gm/dL Hct 30.8 L (34.0-46.0) % MCHC 30.6 L (31.0-37.0) g/dL RDW 18.5 H (11.5-15.5) % Sodium (137-145) mmol/L Potassium (3.5-5.1) mmol/L BUN (7-17) mg/dL Creatinine (0.52-1.04) mg/dL Glucose (74-99) mg/dL POC Glucose (mg/dL) 112 H 119 H (75-99) mg/dL AST (14-36) U/L Alkaline Phosphatase (38-126) U/L Total Protein (6.3-8.2) g/dL Albumin (3.5-5.0) g/dL Triglycerides (<150) mg/dL 07/16/20 07/16/20 07/16/20 Range/Units 06:00 06:07 11:17 RBC (3.80-5.40) m/uL Hgb (11.4-16.0) gm/dL Hct (34.0-46.0) % MCHC (31.0-37.0) g/dL RDW (11.5-15.5) % Sodium 134 L (137-145) mmol/L Potassium 5.2 H (3.5-5.1) mmol/L BUN 41 H (7-17) mg/dL Creatinine 1.35 H (0.52-1.04) mg/dL Glucose 102 H (74-99) mg/dL POC Glucose (mg/dL) 108 H 133 H (75-99) mg/dL AST 57 H (14-36) U/L Alkaline Phosphatase 203 H (38-126) U/L Total Protein 5.2 L (6.3-8.2) g/dL Albumin 3.0 L (3.5-5.0) g/dL Triglycerides 229 H (<150) mg/dL
[2020-07-16 11:28] LABS: Glucose,Whole Blood 133 mg/dL (75-99)
--- NOTE | 2020-07-16 11:55 | P.PN ---
Subjective Progress Note Date: 07/16/20 Principal diagnosis: COPD. Vomiting. On today's evaluation of 07/09/2020, the patient remains nothing by mouth. The patient is being treated for bilateral pneumonia. The patient was also found to have an obstruction at the level of the diaphragm and this was noted by the [facility] swallow. General surgeries on the case. The patient has undergone a previous gastrectomy for peptic ulcer disease and [facility]. As such, based on general surgeries recommendation, it was advised for this patient to go back to [facility] regarding this issue. A PICC line will be inserted and the patient will be given TPN for nutritional support. She has undergone a previous Kacey-en-Y gastric bypass surgery. Meanwhile, the patient is currently on antibiotics and she is currently receiving Rocephin 1 g every 24 hours. The patient is currently on room air oxygen. Pulse ox is around 97%. COVID 19 testing was negative. Also noted that procalcitonin level was low on 2 separate occasions. 07/10/2020 patient is seen in follow-up on medical surgical floor, she is resting in bed, she is not in any acute distress, denies any difficulty breathing, she is having some pain in her bilateral ribs worse with deep breathing. Patient is on room air oxygen 95%, hemodynamically she stable, she's been afebrile, no cough, no congestion, patient is on clear liquid diet, no nausea or vomiting, she has also been started on TPN, and obstruction at the level of the diaphragm, transfer to the [facility] is pending. Is currently on Zosyn for antibiotic coverage, has had no fever or chills, and her procalcitonin all was negative at 0.13 on 07/09/2020 Progress note dated 07/16/2020. Currently, the patient's resting comfortably. She is getting supplemental antibiotics in the form of Zosyn. She's also on saline at 50 mL an hour. She has not requiring any oxygen therapy. She still feels like she's got tightness in her chest, and also some abdominal discomfort. She is not having any additional vomiting. She is hoping to be transferred back to [facility] where she initially had surgery many years back. Her primary care provider is Dr. Hernandez in [place]. She does have a history of chronic bronchial asthma, DVT, gastroesophageal reflux disease, dementia, osteoarthritis, migraine cephalgia, pancreatitis, TIA, and spinal stenosis. Objective - Vital Signs Vital signs: Vital Signs Temp 97.8 F 07/16/20 11:32 Pulse 84 07/16/20 11:32 Resp 16 07/16/20 11:32 BP 119/65 07/16/20 11:32 Pulse Ox 96 07/16/20 11:32 Intake & Output 07/15/20 07/16/20 07/16/20 18:59 06:59 18:59 Intake Total 2364.75 983 Output Total 1 Balance 2364.75 983 -1 Intake: Intake, IV Titration 1964.75 983 Amount Mvi, Adult No.4 with Vit 904.75 983 K 10 ml Trace (Conc-1Ml/ Dose) 1 ml Sodium Acetate 34 meq Potassium Phosphate 15 mmol In Amino Acid 5%-D15w 1,000 ml @ 55 mls/hr IV . [id number] [facility] Rx#:[id number] Piperacillin-Tazobactam 3 100 .375 gm In Sodium Chloride 0.9% 100 ml @ 25 mls/hr IVPB Q8HR [facility] Rx# :[id number] Sodium Chloride 0.9% 1, 960 000 ml @ 80 mls/hr IV . [id number] [facility] Rx#:[id number] Oral 400 Output: Stool 1 Other: Voiding Method Toilet Toilet # Voids 2 2 - Exam No acute distress, oriented 3. Currently not on any supplemental oxygen. No respiratory distress. HEENT examination is grossly unremarkable. Mucous membranes are moist. No oral lesions. Neck supple. Full range of motion. No adenopathy thyromegaly or neck vein distention. Cardiovascular examination reveals regular rhythm rate. S1-S2 normal. No S3 or S4. No discernible murmur noted. Heart rate is 84 bpm. Lungs reveal mostly clear breath sounds. A few scattered rhonchi. No wheezes. Breath sounds are diminished throughout. Slight prolongation on forced maneuver. Abdomen soft bowel sounds are heard. No masses or tenderness. Extremities are intact. No cyanosis clubbing or edema. Skin is without rash or lesion. Neurologic examination is brief but nonfocal. - Labs CBC & Chem 7: 07/16/20 06:00 07/16/20 06:00 Labs: Abnormal Lab Results - Last 24 Hours (Table) 07/15/20 07/15/20 07/16/20 Range/Units 17:09 23:47 06:00 RBC 3.31 L (3.80-5.40) m/uL Hgb 9.4 L (11.4-16.0) gm/dL Hct 30.8 L (34.0-46.0) % MCHC 30.6 L (31.0-37.0) g/dL RDW 18.5 H (11.5-15.5) % Sodium (137-145) mmol/L Potassium (3.5-5.1) mmol/L BUN (7-17) mg/dL Creatinine (0.52-1.04) mg/dL Glucose (74-99) mg/dL POC Glucose (mg/dL) 112 H 119 H (75-99) mg/dL AST (14-36) U/L Alkaline Phosphatase (38-126) U/L Total Protein (6.3-8.2) g/dL Albumin (3.5-5.0) g/dL Triglycerides (<150) mg/dL 07/16/20 07/16/20 07/16/20 Range/Units 06:00 06:07 11:17 RBC (3.80-5.40) m/uL Hgb (11.4-16.0) gm/dL Hct (34.0-46.0) % MCHC (31.0-37.0) g/dL RDW (11.5-15.5) % Sodium 134 L (137-145) mmol/L Potassium 5.2 H (3.5-5.1) mmol/L BUN 41 H (7-17) mg/dL Creatinine 1.35 H (0.52-1.04) mg/dL Glucose 102 H (74-99) mg/dL POC Glucose (mg/dL) 108 H 133 H (75-99) mg/dL AST 57 H (14-36) U/L Alkaline Phosphatase 203 H (38-126) U/L Total Protein 5.2 L (6.3-8.2) g/dL Albumin 3.0 L (3.5-5.0) g/dL Triglycerides 229 H (<150) mg/dL Assessment and Plan Assessment: Nausea, vomiting, and diarrhea, which the patient blames on her discharge antibiotics. Recent admission for bilateral pneumonia, with a stable respiratory status, and an unchanged chest x-ray. History of chronic bronchial asthma. General medical debility. History of chronic anemia. History of hypothyroidism. History of hyperlipidemia. History of migraine cephalgia. History of deep venous thrombosis. History of gastroesophageal reflux disease. History of dementia. Multiple other medical problems and comorbidities. Plan: Plan dated 07/08/2020. The patient was recently discharged from the hospital on July 03. The patient was discharged on Augmentin therapy. She blames her nausea, vomiting, diarrhea, dehydration, and weakness on this antibiotic. She does not have an ALLERGY to penicillin. Clinically, the patient looks well. She doesn't really have any respiratory difficulties whatsoever. She is on room air oxygen. Her chest x- ray similar to the prior chest x-ray when she was inpatient. We will continue t o follow. Prognosis is guarded. She was placed on her usual asthma medication by the primary, and also started back on Rocephin. A pro-calcitonin level should be done. Plan dated 07/16/2020. Currently, the patient seemed to be doing relatively well. She is not having any additional vomiting. She does have some mild abdominal discomfort and cramping. She is not requiring any supplemental oxygen. Her chronic lung disease is stable. She is getting Zosyn antibiotic. Is also on saline at 50 mL an hour. She is hoping to be transferred to the [facility] which is where she had her initial abdominal procedures. No additional recommendations are made. Prognosis is guarded. Time with Patient: Less than 30
[2020-07-16] MEDS: BUTALB/APAP/CAFF 50-325-40MG TAB PO PRN (13:26)
[2020-07-16 17:03] LABS: Glucose,Whole Blood 114 mg/dL (75-99)
--- NOTE | 2020-07-16 18:27 | P.PN ---
Subjective Progress Note Date: 07/16/20 This is a 75-year-old female patient who presents to the ER with complaints of nausea and vomiting. Patient was recently discharged and treated for pneumonia. Patient reports that she was unable to take her antibiotic without vomiting which prompted her to come the ER for further evaluation. Patient has a past medical history of asthma, DVT, GERD, memory impairment, pancreatitis and chronic pain. Head CT was performed in ER showing negative unenhanced head CT scan no change. Chest x-ray performed showing bilateral pulmonary infiltrates similar to recent exam failure. Started on IV Rocephin for pneumonia and pulmonary service is consulted. GI service is consulted for the nausea Protonix and Zofran ordered. Creatinine 1.59 and bun 30 this does appear on patient's baseline. At this time patient is resting comfortably in bed states she has been able to keep down sara maximino. Patient denies chest pain. Patient does report some wheezing and coughing. Patient denies any urinary burning or frequency. Patient denies any diarrhea On 07/09/2020 patient was seen and examined on the medical floor she is alert and oriented 3 in no apparent distress she is complaining of nausea and vom iting otherwise she denies any complaints at this time barium swallow evaluation revealed evidence of obstruction at the liver of diaphragmatic surgical consultation requested and the recommendation for surgery is to transfer patient to [facility] where she had her previous gastrectomy otherwise patient is doing well there is no fever or chills no headache or dizziness no chest pain no abdominal pain no diarrhea no blood in the stools no burning with urination no frequency or urgency and no hematuria patient is having recurrent episodes of vomiting and is unable to keep any food down at this time will ask for a PICC line placement patient will be started on TPN transfer to [facility] was initiated On 07/10/2020 patient is alert and oriented 3 requesting increasing pain medication. Plans for EGD today per surgical services and transferred you a vomiting process. PICC line in place. IV antibiotics changed to Zosyn per pulmonary. At this time patient denies any chest pain or shortness of breath. Denies any urinary burning or frequency. Patient complaining of abdominal pain and nausea vomiting. On 07/11/2020 patient was seen and examined on the medical floor she is alert and oriented 3 in no distress she is able to tolerate liquid diet well there is no fever or chills no headache or dizziness no chest pain no shortness of breath no cough no nausea or vomiting no abdominal pain no diarrhea no blood in the stools no burning with urination no frequency or urgency and no hematuria On 07/12/2020 patient was seen and examined on the medical floor she is alert and oriented 3 in no apparent distress, she is able to tolerate full liquid d iet well there is no fever or chills no headache or dizziness no chest pain no shortness of breath no cough no nausea or vomiting no abdominal pain no diarrhea no blood in the stools no burning with urination no frequency or urgency and no hematuria. At this time chances that patient will be transferred to [facility] are small due to current increase in Covid 19 cases and no available beds at [facility] plan is to continue to advance diet slowly and continue with IV antibiotics if patient is stable she can be discharged to a rehab center and follow-up with surgical department at [facility] as outpatient On 07/13/2020 patient's alert and oriented 3. Patient has been tolerating full liquid diet. Reports that she has been up out of bed. Patient remains on TPN and lipids. Remains on IV Zosyn. Surgical and infectious disease services following. Patient requesting x-ray be done of her neck due to increased pain. At this time patient denies chest pain or shortness breath. Patient denies any diarrhea. Patient denies any urinary burning or frequency On 07/14/2020 patient was seen and examined on the medical floor she is alert and oriented 3 in no apparent distress she is able to tolerate liquid diet well, she is still maintained on IV Zosyn and on TPN with lipids, patient cond ition is improving significantly, we are awaiting possible transfer to [facility] for evaluation of difficulty swallowing with recurrent aspiration pneumonia, patient had a previous gastrectomy at [facility] 25 years ago, however if there are no available bed to transfer in the next 2 days, patient could be discharged home and arrangement will be made as outpatient to follow-up at the surgical department of [facility]. On 07/15/2020 patient was seen and examined on the medical floor she is alert and oriented times 3 in no distress she is complaining of occasional cough, she also stated that she had episodes of nausea and vomiting last night otherwise there is no fever or chills no headache or dizziness no chest pain no shortness of breath, no abdominal pain no diarrhea no blood in the stools no burning with urination no frequency or urgency and no hematuria On 07/16/2020 patient was seen and examined on the medical floor she is alert and oriented 3 in no distress she is able to tolerate liquid diet well there is no fever or chills no headache or dizziness no chest pain no shortness of breath no cough no nausea or vomiting no abdominal pain no diarrhea no blood in the stools no burning with urination no frequency or urgency and no hematuria, possible discharge to home in the next 1-2 days if unable to transfer to [facility] , possible referral to surgery at [facility] as outpatient. Objective - Vital Signs Vital signs: Vital Signs Temp 97.8 F 07/16/20 05:00 Pulse 79 07/16/20 08:25 Resp 16 07/16/20 08:25 BP 116/71 07/16/20 05:00 Pulse Ox 97 07/16/20 05:00 Intake & Output 07/15/20 07/16/20 07/16/20 18:59 06:59 18:59 Intake Total 2364.75 983 Output Total 1 Balance 2364.75 983 -1 Intake: Intake, IV Titration 1964.75 983 Amount Mvi, Adult No.4 with Vit 904.75 983 K 10 ml Trace (Conc-1Ml/ Dose) 1 ml Sodium Acetate 34 meq Potassium Phosphate 15 mmol In Amino Acid 5%-D15w 1,000 ml @ 55 mls/hr IV . [id number] [facility] Rx#:[id number] Piperacillin-Tazobactam 3 100 .375 gm In Sodium Chloride 0.9% 100 ml @ 25 mls/hr IVPB Q8HR [facility] Rx# :[id number] Sodium Chloride 0.9% 1, 960 000 ml @ 80 mls/hr IV . [id number] [facility] Rx#:[id number] Oral 400 Output: Stool 1 Other: Voiding Method Toilet Toilet # Voids 2 2 - Exam in general patient is alert and oriented 3 in no apparent distress HEENT head normocephalic and atraumatic Chest supple no JVD no goiter no lymphadenopathy Chest exam reveals a few scattered crackles bilaterally no wheezing Cardiac exam reveals regular heart sounds no gallops no murmurs Abdomen is soft nontender no organomegaly with normal bowel sounds Extremity exam reveals no edema no cyanosis or clubbing - Labs CBC & Chem 7: 07/16/20 06:00 07/16/20 06:00 Labs: Abnormal Lab Results - Last 24 Hours (Table) 07/15/20 07/15/20 07/15/20 Range/Units 11:15 17:09 23:47 RBC (3.80-5.40) m/uL Hgb (11.4-16.0) gm/dL Hct (34.0-46.0) % MCHC (31.0-37.0) g/dL RDW (11.5-15.5) % Sodium (137-145) mmol/L Potassium (3.5-5.1) mmol/L BUN (7-17) mg/dL Creatinine (0.52-1.04) mg/dL Glucose (74-99) mg/dL POC Glucose (mg/dL) 187 H 112 H 119 H (75-99) mg/dL AST (14-36) U/L Alkaline Phosphatase (38-126) U/L Total Protein (6.3-8.2) g/dL Albumin (3.5-5.0) g/dL Triglycerides (<150) mg/dL 07/16/20 07/16/20 07/16/20 Range/Units 06:00 06:00 06:07 RBC 3.31 L (3.80-5.40) m/uL Hgb 9.4 L (11.4-16.0) gm/dL Hct 30.8 L (34.0-46.0) % MCHC 30.6 L (31.0-37.0) g/dL RDW 18.5 H (11.5-15.5) % Sodium 134 L (137-145) mmol/L Potassium 5.2 H (3.5-5.1) mmol/L BUN 41 H (7-17) mg/dL Creatinine 1.35 H (0.52-1.04) mg/dL Glucose 102 H (74-99) mg/dL POC Glucose (mg/dL) 108 H (75-99) mg/dL AST 57 H (14-36) U/L Alkaline Phosphatase 203 H (38-126) U/L Total Protein 5.2 L (6.3-8.2) g/dL Albumin 3.0 L (3.5-5.0) g/dL Triglycerides 229 H (<150) mg/dL Assessment and Plan Assessment: 1. Intractable vomiting. Zofran ordered. GI service is consulted. Amylase and lipase ordered, she was found to have an obstruction at the level of the diaphragm, patient will be started on TPN today as she is having constant vomiting, recommendation for surgery is to transfer to [facility] where she had her previous gastrectomy, transfer was initiated today. 2. Pneumonia. Patient recently discharged on antibiotics. We'll also consult infectious disease due to possible aspiration. Antibiotics switched to Zosyn 3. History of peptic ulcer disease 4. History of pancreatitis 5. History of gastrectomy 6. Chronic kidney disease stage III. Labs do appear on baseline 7. Chronic pain. Patient maintained on fentanyl patch 8. Neck pain. X-ray of cervical spine ordered DVT prophylaxis Lovenox. GI prophylaxis Protonix GI, surgical services, pulmonary and infectious disease service is consulted Status post EGD showing no obvious obstruction patient maintained on clear liquid diet Transfer to [facility] in the works but due to increase in COVID Cases bed availability limited
[2020-07-16] MEDS: LORATADINE 10 MG TAB PO SCH (21:48)
[2020-07-16] MEDS: MIRTAZAPINE 45 MG TABLET PO SCH (21:48)
[2020-07-16] MEDS: SUMAtriptan succinate 50 MG TAB PO PRN (22:25)
--- NOTE | 2020-07-16 23:58 | PN ---
PROGRESS NOTE DATE OF SERVICE: 07/16/2020 REASON FOR FOLLOWUP: Aspiration pneumonia. INTERVAL HISTORY: Patient is currently afebrile. Patient is breathing comfortably. Complaining of feeling nauseous in night. No further vomiting. Denies any chest pain, shortness of breath or cough. PHYSICAL EXAMINATION: Blood pressure 113/63, pulse 81, temperature 98. She is 97% on room air. General description is an elderly female lying in bed in no distress. Respiratory system: Unlabored breathing, decreased breath sounds in the base, with no wheeze. Heart S1, S2. Regular rate and rhythm. Abdomen: Soft. No tenderness. LABS: Hemoglobin 9.4, white count 8.5, BUN of 21, creatinine 1.35. DIAGNOSTIC IMPRESSION AND PLAN: Patient admitted to the hospital with vomiting in this patient with concern for possible gastric outlet obstruction and a component of aspiration pneumonia. Patient is covered with Zosyn that will continue and monitor clinical course closely. MMODL / IJN: [id number] /
[2020-07-17] MEDS: PIPERACILLIN-TAZOBACTAM 3.375 GM in SODIUM CHLORIDE 0.9% 100 ML IVPB SCH ×4 (00:23→21:44)
[2020-07-17 00:52] LABS: Glucose,Whole Blood 115 mg/dL (75-99)
[2020-07-17] MEDS: MVI, ADULT NO.4 WITH VIT K 10 ML, TRACE (CONC-1ML/DOSE) 1 ML, SODIUM ACETATE 34 MEQ, PO... IV SCH ×12 (01:52→21:21)
[2020-07-17 05:56] LABS: Anisocytosis Slight; Basophils % (A) 1 %; Eosinophils # (A) 0.4 k/uL (0-0.7); Eosinophils % (A) 5 %; HCT 32.1 % (34.0-46.0); HGB 9.7 gm/dL (11.4-16.0); Hypochromasia Moderate; Lymphocytes # (A) 1.1 k/uL (1.0-4.8); Lymphocytes % (A) 14 %; MCH 28.3 pg (25.0-35.0); MCHC 30.3 g/dL (31.0-37.0); MCV 93.4 fL (80.0-100.0); Mean Platelet Volume 7.2; Monocytes # (A) 0.5 k/uL (0-1.0); Monocytes % (A) 6 %; Neutrophils # (A) 5.8 k/uL (1.3-7.7); Neutrophils % (A) 73 %; Platelet Count 323 k/uL (150-450); RBC 3.44 m/uL (3.80-5.40); RDW 18.4 % (11.5-15.5); WBC 7.9 k/uL (3.8-10.6)
[2020-07-17] MEDS: LEVOTHYROXINE 88 MCG TAB PO SCH (05:59)
[2020-07-17 06:02] LABS: Glucose,Whole Blood 141 mg/dL (75-99)
[2020-07-17] MEDS: HYDROmorphone 0.5 MG/0.5 ML SYRINGE IVP PRN ×5 (06:05→22:29)
[2020-07-17 06:24] LABS: ALT 52 U/L (4-34); AST 90 U/L (14-36); African American GFR (CKD) 47 (>60 ml/min/1.73 sqM); Albumin/Globulin Ratio 1.3; Alkaline Phosphatase 227 U/L (38-126); Anion Gap 5 mmol/L; Blood Urea Nitrogen 39 mg/dL (7-17); Calcium 8.8 mg/dL (8.4-10.2); Carbon Dioxide 31 mmol/L (22-30); Chloride 101 mmol/L (98-107); Globulin 2.3 g/dL; Glucose 112 mg/dL (74-99); Non-African American GFR(CKD) 40 (>60 ml/min/1.73 sqM); Phosphorus 3.5 mg/dL (2.5-4.5); Potassium 4.7 mmol/L (3.5-5.1); Sodium 137 mmol/L (137-145); Total Bilirubin 0.3 mg/dL (0.2-1.3); Total Protein 5.3 g/dL (6.3-8.2)
[2020-07-17] MEDS: SYMBICORT 160-4.5 MCG INHALER INHALATION SCH ×2 (08:10→19:45)
[2020-07-17] MEDS: HYDROcodone/APAP 5-325MG 1 EACH TAB PO PRN ×2 (08:54→19:41)
[2020-07-17] MEDS: ENOXAPARIN 30 MG/0.3 ML SYRINGE SQ SCH (08:54)
[2020-07-17] MEDS: hydrOXYzine pamoate 25 MG CAP PO SCH ×3 (08:55→21:16)
[2020-07-17] MEDS: DULoxetine HCL 60 MG CAPSULE.DR PO SCH (08:55)
[2020-07-17] MEDS: CHOLESTYRAMINE (WITH SUGAR) 4 GM PACKET PO SCH ×3 (08:55→21:18)
[2020-07-17] MEDS: FOLIC ACID 1 MG TAB PO SCH (08:55)
[2020-07-17] MEDS: buPROPion XL 300 MG TAB.ER.24H PO SCH (08:55)
[2020-07-17] MEDS: FERROUS SULFATE 325 MG TAB PO SCH ×2 (08:55→21:17)
[2020-07-17] MEDS: busPIRone HCl 10 MG TAB PO SCH ×2 (08:56→21:17)
[2020-07-17] MEDS: PANTOPRAZOLE 40 MG TABLET PO SCH ×2 (08:56→21:17)
[2020-07-17] MEDS: SODIUM CHLORIDE 0.9% 1,000 ML IV SCH ×3 (08:56→21:43)
[2020-07-17] MEDS: THIAMINE 100 MG TAB PO SCH (08:56)
[2020-07-17] MEDS: FUROSEMIDE 20 MG TAB PO SCH (08:56)
[2020-07-17] MEDS: ONDANSETRON 4 MG/2 ML VIAL IVP PRN ×2 (10:16→19:42)
[2020-07-17] MEDS: SUMAtriptan succinate 50 MG TAB PO PRN (10:16)
[2020-07-17 11:30] LABS: Glucose,Whole Blood 102 mg/dL (75-99)
--- NOTE | 2020-07-17 11:43 | P.PN ---
<Emily East - Last Filed: 07/17/20 11:42> Subjective Progress Note Date: 07/17/20 CHIEF COMPLAINT: Dysphagia HISTORY OF PRESENT ILLNESS: Patient is status post EGD which revealed normal- appearing esophagojejunostomy without obvious obstruction, hiatal hernia. Etiology for obstruction seen on upper GI unclear but may be related to transient kinking of the jejunal limb at the hiatal hernia site. Patient on full liquid diet. Patient denies any vomiting. She is still having issues with dysphagia. Denies any increase in her abdominal pain. She reports having bowel movements. Afebrile. WBC 7.9 Hgb 9.7 creatinine 1.31 Patient is awaiting for bed availability at [facility]. PHYSICAL EXAM: VITAL SIGNS: Reviewed. GENERAL: Well-developed in no acute distress. HEENT: No sclera icterus. Extraocular movements grossly intact. Moist buccal mucosa. Head is atraumatic, normocephalic. ABDOMEN: Soft. Nondistended. Minimal tenderness with palpation of epigastric area NEUROLOGIC: Alert and oriented. Cranial nerves II through XII grossly intact. ASSESSMENT: 1. Obstruction at the level of the diaphragm. Etiology for obstruction seen on upper GI unclear but may be related to transient kinking of the jejunal limb at the hiatal hernia site 2. Prior history of gastrectomy for peptic ulcer disease completed at [facility]. First surgery was in 1989 and second surgery 1994 3. Dysphagia 4. Nausea and vomiting 5. Esophagojejunostomy with hiatal hernia PLAN: -Recommend tertiary care evaluation for further surgical care -Awaiting bed availability for transfer to [facility] -Continue full liquid diet -Continue antacids Physician Powerhouse Oiler note has been reviewed by physician. Signing provider agrees with the documented findings, assessment, and plan of care. Objective - Vital Signs Vital signs: Vital Signs Temp 97.6 F 07/17/20 05:00 Pulse 89 07/17/20 05:00 Resp 16 07/17/20 05:00 BP 125/79 07/17/20 05:00 Pulse Ox 97 07/17/20 05:00 Intake & Output 07/16/20 07/17/20 07/17/20 18:59 06:59 18:59 Intake Total 240 590 Output Total 1 Balance 239 590 Intake: Oral 240 590 Output: Stool 1 Other: Voiding Method Toilet Toilet # Voids 3 3 - Labs CBC & Chem 7: 03/30/21 04:52 07/17/20 04:52 Labs: Abnormal Lab Results - Last 24 Hours (Table) 07/16/20 07/17/20 07/17/20 Range/Units 17:01 00:49 04:52 RBC 3.44 L (3.80-5.40) m/uL Hgb 9.7 L (11.4-16.0) gm/dL Hct 32.1 L (34.0-46.0) % MCHC 30.3 L (31.0-37.0) g/dL RDW 18.4 H (11.5-15.5) % Carbon Dioxide (22-30) mmol/L BUN (7-17) mg/dL Creatinine (0.52-1.04) mg/dL Glucose (74-99) mg/dL POC Glucose (mg/dL) 114 H 115 H (75-99) mg/dL AST (14-36) U/L ALT (4-34) U/L Alkaline Phosphatase (38-126) U/L Total Protein (6.3-8.2) g/dL Albumin (3.5-5.0) g/dL 07/17/20 07/17/20 07/17/20 Range/Units 04:52 06:00 11:19 RBC (3.80-5.40) m/uL Hgb (11.4-16.0) gm/dL Hct (34.0-46.0) % MCHC (31.0-37.0) g/dL RDW (11.5-15.5) % Carbon Dioxide 31 H (22-30) mmol/L BUN 39 H (7-17) mg/dL Creatinine 1.31 H (0.52-1.04) mg/dL Glucose 112 H (74-99) mg/dL POC Glucose (mg/dL) 141 H 102 H (75-99) mg/dL AST 90 H (14-36) U/L ALT 52 H (4-34) U/L Alkaline Phosphatase 227 H (38-126) U/L Total Protein 5.3 L (6.3-8.2) g/dL Albumin 3.0 L (3.5-5.0) g/dL <Nathan Guadalupe - Last Filed: 07/17/20 18:18> Subjective As above. Patient had nausea earlier today. No vomiting. Remains on TPN. Continue full liquids. Await transfer. Objective - Vital Signs Vital signs: Vital Signs Temp 98.2 F 07/17/20 11:12 Pulse 86 07/17/20 11:12 Resp 16 07/17/20 11:12 BP 107/70 07/17/20 11:12 Pulse Ox 97 07/17/20 11:12 Intake & Output 07/16/20 07/17/20 07/17/20 18:59 06:59 18:59 Intake Total 944 781 5064 Output Total 1 Balance 030 571 8377 Weight 38.555 kg Intake: Intake, IV Titration 1620 Amount Mvi, Adult No.4 with Vit 660 K 10 ml Trace (Conc-1Ml/ Dose) 1 ml Sodium Acetate 34 meq Potassium Phosphate 10 mmol Sodium Chloride 4Meq/ml Vial 20 meq In Amino Acid 5%-D15w 1,000 ml @ 55 mls/hr IV .[id number] [facility] Rx#: [id number] Sodium Chloride 0.9% 1, 960 000 ml @ 80 mls/hr IV . [id number] [facility] Rx#:[id number] Oral 240 590 Output: Stool 1 Other: Voiding Method Toilet Toilet # Voids 3 3 - Labs CBC & Chem 7: 07/17/20 04:52 07/17/20 04:52 Labs: Abnormal Lab Results - Last 24 Hours (Table) 07/17/20 07/17/20 07/17/20 Range/Units 00:49 04:52 04:52 RBC 3.44 L (3.80-5.40) m/uL Hgb 9.7 L (11.4-16.0) gm/dL Hct 32.1 L (34.0-46.0) % MCHC 30.3 L (31.0-37.0) g/dL RDW 18.4 H (11.5-15.5) % Carbon Dioxide 31 H (22-30) mmol/L BUN 39 H (7-17) mg/dL Creatinine 1.31 H (0.52-1.04) mg/dL Glucose 112 H (74-99) mg/dL POC Glucose (mg/dL) 115 H (75-99) mg/dL AST 90 H (14-36) U/L ALT 52 H (4-34) U/L Alkaline Phosphatase 227 H (38-126) U/L Total Protein 5.3 L (6.3-8.2) g/dL Albumin 3.0 L (3.5-5.0) g/dL 07/17/20 07/17/20 07/17/20 Range/Units 06:00 11:19 17:19 RBC (3.80-5.40) m/uL Hgb (11.4-16.0) gm/dL Hct (34.0-46.0) % MCHC (31.0-37.0) g/dL RDW (11.5-15.5) % Carbon Dioxide (22-30) mmol/L BUN (7-17) mg/dL Creatinine (0.52-1.04) mg/dL Glucose (74-99) mg/dL POC Glucose (mg/dL) 141 H 102 H 100 H (75-99) mg/dL AST (14-36) U/L ALT (4-34) U/L Alkaline Phosphatase (38-126) U/L Total Protein (6.3-8.2) g/dL Albumin (3.5-5.0) g/dL
[2020-07-17 17:22] LABS: Glucose,Whole Blood 100 mg/dL (75-99)
[2020-07-17] MEDS: BUTALB/APAP/CAFF 50-325-40MG TAB PO PRN (17:47)
--- NOTE | 2020-07-17 18:26 | P.PN ---
Subjective Progress Note Date: 07/17/20 This is a 75-year-old female patient who presents to the ER with complaints of nausea and vomiting. Patient was recently discharged and treated for pneumonia. Patient reports that she was unable to take her antibiotic without vomiting which prompted her to come the ER for further evaluation. Patient has a past medical history of asthma, DVT, GERD, memory impairment, pancreatitis and chronic pain. Head CT was performed in ER showing negative unenhanced head CT scan no change. Chest x-ray performed showing bilateral pulmonary infiltrates similar to recent exam failure. Started on IV Rocephin for pneumonia and pulmonary service is consulted. GI service is consulted for the nausea Protonix and Zofran ordered. Creatinine 1.59 and bun 30 this does appear on patient's baseline. At this time patient is resting comfortably in bed states she has been able to keep down sara maximino. Patient denies chest pain. Patient does report some wheezing and coughing. Patient denies any urinary burning or frequency. Patient denies any diarrhea On 07/09/2020 patient was seen and examined on the medical floor she is alert and oriented 3 in no apparent distress she is complaining of nausea and vom iting otherwise she denies any complaints at this time barium swallow evaluation revealed evidence of obstruction at the liver of diaphragmatic surgical consultation requested and the recommendation for surgery is to transfer patient to [facility] where she had her previous gastrectomy otherwise patient is doing well there is no fever or chills no headache or dizziness no chest pain no abdominal pain no diarrhea no blood in the stools no burning with urination no frequency or urgency and no hematuria patient is having recurrent episodes of vomiting and is unable to keep any food down at this time will ask for a PICC line placement patient will be started on TPN transfer to [facility] was initiated On 07/10/2020 patient is alert and oriented 3 requesting increasing pain medication. Plans for EGD today per surgical services and transferred you a vomiting process. PICC line in place. IV antibiotics changed to Zosyn per pulmonary. At this time patient denies any chest pain or shortness of breath. Denies any urinary burning or frequency. Patient complaining of abdominal pain and nausea vomiting. On 07/11/2020 patient was seen and examined on the medical floor she is alert and oriented 3 in no distress she is able to tolerate liquid diet well there is no fever or chills no headache or dizziness no chest pain no shortness of breath no cough no nausea or vomiting no abdominal pain no diarrhea no blood in the stools no burning with urination no frequency or urgency and no hematuria On 07/12/2020 patient was seen and examined on the medical floor she is alert and oriented 3 in no apparent distress, she is able to tolerate full liquid d iet well there is no fever or chills no headache or dizziness no chest pain no shortness of breath no cough no nausea or vomiting no abdominal pain no diarrhea no blood in the stools no burning with urination no frequency or urgency and no hematuria. At this time chances that patient will be transferred to [facility] are small due to current increase in Covid 19 cases and no available beds at [facility] plan is to continue to advance diet slowly and continue with IV antibiotics if patient is stable she can be discharged to a rehab center and follow-up with surgical department at [facility] as outpatient On 07/13/2020 patient's alert and oriented 3. Patient has been tolerating full liquid diet. Reports that she has been up out of bed. Patient remains on TPN and lipids. Remains on IV Zosyn. Surgical and infectious disease services following. Patient requesting x-ray be done of her neck due to increased pain. At this time patient denies chest pain or shortness breath. Patient denies any diarrhea. Patient denies any urinary burning or frequency On 07/14/2020 patient was seen and examined on the medical floor she is alert and oriented 3 in no apparent distress she is able to tolerate liquid diet well, she is still maintained on IV Zosyn and on TPN with lipids, patient cond ition is improving significantly, we are awaiting possible transfer to [facility] for evaluation of difficulty swallowing with recurrent aspiration pneumonia, patient had a previous gastrectomy at [facility] 25 years ago, however if there are no available bed to transfer in the next 2 days, patient could be discharged home and arrangement will be made as outpatient to follow-up at the surgical department of [facility]. On 07/15/2020 patient was seen and examined on the medical floor she is alert and oriented times 3 in no distress she is complaining of occasional cough, she also stated that she had episodes of nausea and vomiting last night otherwise there is no fever or chills no headache or dizziness no chest pain no shortness of breath, no abdominal pain no diarrhea no blood in the stools no burning with urination no frequency or urgency and no hematuria On 07/16/2020 patient was seen and examined on the medical floor she is alert and oriented 3 in no distress she is able to tolerate liquid diet well there is no fever or chills no headache or dizziness no chest pain no shortness of breath no cough no nausea or vomiting no abdominal pain no diarrhea no blood in the stools no burning with urination no frequency or urgency and no hematuria, possible discharge to home in the next 1-2 days if unable to transfer to [facility] , possible referral to surgery at [facility] as outpatient. On 07/17/2020 patient was seen and examined on the medical floor she is alert and oriented 3 in no apparent distress is no fever or chills no headache or dizziness no chest pain no shortness of breath no cough no nausea or vomiting no abdominal pain no diarrhea no blood in the stools no burning with urination no frequency or urgency and no hematuria. At this time and apparently patient is not going to be transferred to [facility] due to no availability of beds she has finished an IV course of antibiotic for pneumonia she does not have any fever and have her white blood count is normal, plan is to discontinue IV antibiotics tomorrow and discontinue TPN and discharged patient to home. She was instructed in regard to sustain was liquid diet she will be given a prescription for in short 1 can 3 times daily she was instructed to take a half at bottle of in shore every 3 hours and to stay with mostly liquid diet and to stay upright while eating. Arrangements should be made for follow-up at [facility] surgical department as outpatient. Objective - Vital Signs Vital signs: Vital Signs Temp 98.2 F 07/17/20 11:12 Pulse 86 07/17/20 11:12 Resp 16 07/17/20 11:12 BP 107/70 07/17/20 11:12 Pulse Ox 97 07/17/20 11:12 Intake & Output 07/16/20 07/17/20 07/17/20 18:59 06:59 18:59 Intake Total 176 402 1224 Output Total 1 Balance 193 892 9440 Weight 38.555 kg Intake: Intake, IV Titration 1620 Amount Mvi, Adult No.4 with Vit 660 K 10 ml Trace (Conc-1Ml/ Dose) 1 ml Sodium Acetate 34 meq Potassium Phosphate 10 mmol Sodium Chloride 4Meq/ml Vial 20 meq In Amino Acid 5%-D15w 1,000 ml @ 55 mls/hr IV .[id number] [facility] Rx#: [id number] Sodium Chloride 0.9% 1, 960 000 ml @ 80 mls/hr IV . [id number] [facility] Rx#:[id number] Oral 240 590 Output: Stool 1 Other: Voiding Method Toilet Toilet # Voids 3 3 - Exam in general patient is alert and oriented 3 in no apparent distress HEENT head normocephalic and atraumatic Chest supple no JVD no goiter no lymphadenopathy Chest exam reveals a few scattered crackles bilaterally no wheezing Cardiac exam reveals regular heart sounds no gallops no murmurs Abdomen is soft nontender no organomegaly with normal bowel sounds Extremity exam reveals no edema no cyanosis or clubbing - Labs CBC & Chem 7: 07/17/20 04:52 07/17/20 04:52 Labs: Abnormal Lab Results - Last 24 Hours (Table) 07/17/20 07/17/20 07/17/20 Range/Units 00:49 04:52 04:52 RBC 3.44 L (3.80-5.40) m/uL Hgb 9.7 L (11.4-16.0) gm/dL Hct 32.1 L (34.0-46.0) % MCHC 30.3 L (31.0-37.0) g/dL RDW 18.4 H (11.5-15.5) % Carbon Dioxide 31 H (22-30) mmol/L BUN 39 H (7-17) mg/dL Creatinine 1.31 H (0.52-1.04) mg/dL Glucose 112 H (74-99) mg/dL POC Glucose (mg/dL) 115 H (75-99) mg/dL AST 90 H (14-36) U/L ALT 52 H (4-34) U/L Alkaline Phosphatase 227 H (38-126) U/L Total Protein 5.3 L (6.3-8.2) g/dL Albumin 3.0 L (3.5-5.0) g/dL 07/17/20 07/17/20 07/17/20 Range/Units 06:00 11:19 17:19 RBC (3.80-5.40) m/uL Hgb (11.4-16.0) gm/dL Hct (34.0-46.0) % MCHC (31.0-37.0) g/dL RDW (11.5-15.5) % Carbon Dioxide (22-30) mmol/L BUN (7-17) mg/dL Creatinine (0.52-1.04) mg/dL Glucose (74-99) mg/dL POC Glucose (mg/dL) 141 H 102 H 100 H (75-99) mg/dL AST (14-36) U/L ALT (4-34) U/L Alkaline Phosphatase (38-126) U/L Total Protein (6.3-8.2) g/dL Albumin (3.5-5.0) g/dL Assessment and Plan Assessment: 1. Intractable vomiting. Zofran ordered. GI service is consulted. Amylase and lipase ordered, she was found to have an obstruction at the level of the diaphragm, patient will be started on TPN today as she is having constant vomiting, recommendation for surgery is to transfer to [facility] where she had her previous gastrectomy, transfer was initiated today. 2. Pneumonia. Patient recently discharged on antibiotics. We'll also consult infectious disease due to possible aspiration. Antibiotics switched to Zosyn 3. History of peptic ulcer disease 4. History of pancreatitis 5. History of gastrectomy 6. Chronic kidney disease stage III. Labs do appear on baseline 7. Chronic pain. Patient maintained on fentanyl patch 8. Neck pain. X-ray of cervical spine ordered DVT prophylaxis Lovenox. GI prophylaxis Protonix GI, surgical services, pulmonary and infectious disease service is consulted Status post EGD showing no obvious obstruction patient maintained on clear liquid diet Transfer to [facility] in the works but due to increase in COVID Cases bed availability limited
[2020-07-17 20:01] LABS: Glucose,Whole Blood 136 mg/dL (75-99)
[2020-07-17] MEDS: LORATADINE 10 MG TAB PO SCH (21:17)
[2020-07-17] MEDS: MIRTAZAPINE 45 MG TABLET PO SCH (21:17)
[2020-07-18 00:49] LABS: Glucose,Whole Blood 135 mg/dL (75-99)
[2020-07-18] MEDS: HYDROmorphone 0.5 MG/0.5 ML SYRINGE IVP PRN ×5 (02:25→19:43)
--- NOTE | 2020-07-18 03:01 | PN ---
PROGRESS NOTE DATE OF SERVICE: 07/17/2020 REASON FOR FOLLOWUP: Aspiration pneumonia. INTERVAL HISTORY: The patient is currently afebrile. Patient is breathing comfortably. Abdominal symptoms have improved. No chest pain or shortness of breath. Occasional cough. No diarrhea. PHYSICAL EXAMINATION: Blood pressure is 104/62 with a pulse of 102. Temperature 99.1. She is 94% on room air. General description is an elderly female lying in bed in no distress. Respiratory system: Unlabored breathing, with decreased intensity of breath sounds. No wheeze. HEART: S1, S2. Regular rate and rhythm. ABDOMEN: Soft, no tenderness. LABS: Hemoglobin 9.7, white count 7.9, BUN of 39, creatinine is 1.31. DIAGNOSTIC IMPRESSION AND PLAN: Patient admitted to the hospital with aspiration pneumonia with vomiting. This patient did have gastric outlet obstruction currently waiting for transfer to [facility], for possible surgical repair on Zosyn empirically to monitor to continue and monitor clinical course closely. Continue supportive care. MMODL / IJN: [id number] /
[2020-07-18] MEDS: BUTALB/APAP/CAFF 50-325-40MG TAB PO PRN ×4 (03:49→23:18)
[2020-07-18] MEDS: LEVOTHYROXINE 88 MCG TAB PO SCH (05:50)
[2020-07-18] MEDS: SODIUM CHLORIDE 0.9% 1,000 ML IV SCH (05:50)
[2020-07-18] MEDS: ONDANSETRON 4 MG/2 ML VIAL IVP PRN ×2 (06:15→16:04)
[2020-07-18 06:20] LABS: Glucose,Whole Blood 107 mg/dL (75-99)
[2020-07-18] MEDS: PIPERACILLIN-TAZOBACTAM 3.375 GM in SODIUM CHLORIDE 0.9% 100 ML IVPB SCH ×2 (07:29→16:05)
[2020-07-18] MEDS: ENOXAPARIN 30 MG/0.3 ML SYRINGE SQ SCH (07:31)
[2020-07-18] MEDS: hydrOXYzine pamoate 25 MG CAP PO SCH ×3 (07:31→21:35)
[2020-07-18] MEDS: busPIRone HCl 10 MG TAB PO SCH ×2 (07:32→21:42)
[2020-07-18] MEDS: buPROPion XL 300 MG TAB.ER.24H PO SCH (07:32)
[2020-07-18] MEDS: PANTOPRAZOLE 40 MG TABLET PO SCH ×2 (07:34→21:36)
[2020-07-18] MEDS: FUROSEMIDE 20 MG TAB PO SCH (07:34)
[2020-07-18] MEDS: FOLIC ACID 1 MG TAB PO SCH (07:34)
[2020-07-18] MEDS: FERROUS SULFATE 325 MG TAB PO SCH ×2 (07:35→21:36)
[2020-07-18] MEDS: DULoxetine HCL 60 MG CAPSULE.DR PO SCH (07:35)
[2020-07-18] MEDS: THIAMINE 100 MG TAB PO SCH (07:35)
[2020-07-18] MEDS: CHOLESTYRAMINE (WITH SUGAR) 4 GM PACKET PO SCH ×2 (07:36→21:29)
[2020-07-18] MEDS: HYDROcodone/APAP 5-325MG 1 EACH TAB PO PRN ×2 (07:45→21:42)
[2020-07-18] MEDS: FAT EMULSION 20% 250 ML in EMPTY BAG 1 BAG IV SCH (07:46)
[2020-07-18] MEDS: SYMBICORT 160-4.5 MCG INHALER INHALATION SCH ×2 (08:50→20:27)
[2020-07-18 09:37] LABS: African American GFR (CKD) 39.6 (60.0-200.0); Anion Gap 9.3 mmol/L (4.00-12.00); Calcium 8.7 mg/dL (8.7-10.3); Carbon Dioxide 29.7 mmol/L (21.6-31.8); Magnesium 1.9 mg/dL (1.5-2.4); Non-African American GFR(CKD) 34.2 (60.0-200.0); Phosphorus 3.3 mg/dL (2.4-5.1); Potassium 4.7 mmol/L (3.5-5.5)
--- NOTE | 2020-07-18 11:38 | P.PN ---
<Emily East - Last Filed: 07/18/20 11:36> Subjective Progress Note Date: 07/18/20 CHIEF COMPLAINT: Dysphagia HISTORY OF PRESENT ILLNESS: Patient is status post EGD which revealed normal- appearing esophagojejunostomy without obvious obstruction, hiatal hernia. Etiology for obstruction seen on upper GI unclear but may be related to transient kinking of the jejunal limb at the hiatal hernia site. Patient on full liquid diet. Patient does report she had some vomiting yesterday after eating pudding and yogurt too fast. She is still having issues with dysphagia. Denies any increase in her abdominal pain. She reports having bowel movements. Afebrile. Creatinine 1.5 Patient is awaiting for bed availability at [facility]. PHYSICAL EXAM: VITAL SIGNS: Reviewed. GENERAL: Well-developed in no acute distress. HEENT: No sclera icterus. Extraocular movements grossly intact. Moist buccal mucosa. Head is atraumatic, normocephalic. ABDOMEN: Soft. Nondistended. Minimal tenderness with palpation of epigastric area NEUROLOGIC: Alert and oriented. Cranial nerves II through XII grossly intact. ASSESSMENT: 1. Obstruction at the level of the diaphragm. Etiology for obstruction seen on upper GI unclear but may be related to transient kinking of the jejunal limb at the hiatal hernia site 2. Prior history of gastrectomy for peptic ulcer disease completed at [facility]. First surgery was in 1989 and second surgery 1994 3. Dysphagia 4. Nausea and vomiting 5. Esophagojejunostomy with hiatal hernia PLAN: -Recommend tertiary care evaluation for further surgical care -Awaiting bed availability for transfer to [facility] -Continue full liquid diet -Continue antacids Physician Spool Salvager note has been reviewed by physician. Signing provider agrees with the documented findings, assessment, and plan of care. Objective - Vital Signs Vital signs: Vital Signs Temp 98.3 F 07/18/20 05:00 Pulse 83 07/18/20 05:00 Resp 16 07/18/20 05:00 BP 112/70 07/18/20 05:00 Pulse Ox 97 07/18/20 05:00 Intake & Output 07/17/20 07/18/20 07/18/20 18:59 06:59 18:59 Intake Total 1620 2946.3333 Balance 1620 2946.3333 Weight 38.555 kg Intake: Intake, IV Titration 1620 1876.3333 Amount Mvi, Adult No.4 with Vit 660 1036.3333 K 10 ml Trace (Conc-1Ml/ Dose) 1 ml Sodium Acetate 34 meq Potassium Phosphate 10 mmol Sodium Chloride 4Meq/ml Vial 20 meq In Amino Acid 5%-D15w 1,000 ml @ 55 mls/hr IV .[id number] [facility] Rx#: [id number] Piperacillin-Tazobactam 3 200 .375 gm In Sodium Chloride 0.9% 100 ml @ 25 mls/hr IVPB Q8HR [facility] Rx# :[id number] Sodium Chloride 0.9% 1, 960 640 000 ml @ 80 mls/hr IV . [id number] [facility] Rx#:[id number] Oral 1070 Other: # Voids 3 - Labs CBC & Chem 7: 07/17/20 04:52 07/18/20 06:05 Labs: Abnormal Lab Results - Last 24 Hours (Table) 07/17/20 07/17/20 07/18/20 Range/Units 17:19 19:59 00:47 BUN (9.0-27.0) mg/dL Est GFR (CKD-EPI)AfAm (60.0-200.0) Est GFR (CKD-EPI)NonAf (60.0-200.0) BUN/Creatinine Ratio (12.00-20.00) Ratio POC Glucose (mg/dL) 100 H 136 H 135 H (75-99) mg/dL 07/18/20 07/18/20 Range/Units 06:05 06:19 BUN 39.0 H (9.0-27.0) mg/dL Est GFR (CKD-EPI)AfAm 39.6 L (60.0-200.0) Est GFR (CKD-EPI)NonAf 34.2 L (60.0-200.0) BUN/Creatinine Ratio 26.00 H (12.00-20.00) Ratio POC Glucose (mg/dL) 107 H (75-99) mg/dL <Nathan Guadalupe - Last Filed: 07/18/20 12:04> Subjective As above. Patient tolerating full liquids today. No pain. Await transfer to [facility]. I will be out of town after today. We'll sign off. Please contact Dr. Allen for surgical issues. Objective - Vital Signs Vital signs: Vital Signs Temp 98.3 F 07/18/20 11:37 Pulse 89 07/18/20 11:37 Resp 18 07/18/20 11:37 BP 112/67 07/18/20 11:37 Pulse Ox 96 07/18/20 11:37 Intake & Output 07/17/20 07/18/20 07/18/20 18:59 06:59 18:59 Intake Total 1620 2946.3333 Balance 1620 2946.3333 Weight 38.555 kg Intake: Intake, IV Titration 1620 1876.3333 Amount Mvi, Adult No.4 with Vit 660 1036.3333 K 10 ml Trace (Conc-1Ml/ Dose) 1 ml Sodium Acetate 34 meq Potassium Phosphate 10 mmol Sodium Chloride 4Meq/ml Vial 20 meq In Amino Acid 5%-D15w 1,000 ml @ 55 mls/hr IV .[id number] [facility] Rx#: [id number] Piperacillin-Tazobactam 3 200 .375 gm In Sodium Chloride 0.9% 100 ml @ 25 mls/hr IVPB Q8HR [facility] Rx# :[id number] Sodium Chloride 0.9% 1, 960 640 000 ml @ 80 mls/hr IV . [id number] [facility] Rx#:[id number] Oral 1070 Other: # Voids 3 - Labs CBC & Chem 7: 07/17/20 04:52 07/18/20 06:05 Labs: Abnormal Lab Results - Last 24 Hours (Table) 07/17/20 07/17/20 07/18/20 Range/Units 17:19 19:59 00:47 BUN (9.0-27.0) mg/dL Est GFR (CKD-EPI)AfAm (60.0-200.0) Est GFR (CKD-EPI)NonAf (60.0-200.0) BUN/Creatinine Ratio (12.00-20.00) Ratio POC Glucose (mg/dL) 100 H 136 H 135 H (75-99) mg/dL 07/18/20 07/18/20 Range/Units 06:05 06:19 BUN 39.0 H (9.0-27.0) mg/dL Est GFR (CKD-EPI)AfAm 39.6 L (60.0-200.0) Est GFR (CKD-EPI)NonAf 34.2 L (60.0-200.0) BUN/Creatinine Ratio 26.00 H (12.00-20.00) Ratio POC Glucose (mg/dL) 107 H (75-99) mg/dL
--- NOTE | 2020-07-18 12:37 | P.PN ---
Subjective Progress Note Date: 07/18/20 This is a 75-year-old female patient who presents to the ER with complaints of nausea and vomiting. Patient was recently discharged and treated for pneumonia. Patient reports that she was unable to take her antibiotic without vomiting which prompted her to come the ER for further evaluation. Patient has a past medical history of asthma, DVT, GERD, memory impairment, pancreatitis and chronic pain. Head CT was performed in ER showing negative unenhanced head CT scan no change. Chest x-ray performed showing bilateral pulmonary infiltrates similar to recent exam failure. Started on IV Rocephin for pneumonia and pulmonary service is consulted. GI service is consulted for the nausea Protonix and Zofran ordered. Creatinine 1.59 and bun 30 this does appear on patient's baseline. At this time patient is resting comfortably in bed states she has been able to keep down sara maximino. Patient denies chest pain. Patient does report some wheezing and coughing. Patient denies any urinary burning or frequency. Patient denies any diarrhea On 07/09/2020 patient was seen and examined on the medical floor she is alert and oriented 3 in no apparent distress she is complaining of nausea and vom iting otherwise she denies any complaints at this time barium swallow evaluation revealed evidence of obstruction at the liver of diaphragmatic surgical consultation requested and the recommendation for surgery is to transfer patient to [facility] where she had her previous gastrectomy otherwise patient is doing well there is no fever or chills no headache or dizziness no chest pain no abdominal pain no diarrhea no blood in the stools no burning with urination no frequency or urgency and no hematuria patient is having recurrent episodes of vomiting and is unable to keep any food down at this time will ask for a PICC line placement patient will be started on TPN transfer to [facility] was initiated On 07/10/2020 patient is alert and oriented 3 requesting increasing pain medication. Plans for EGD today per surgical services and transferred you a vomiting process. PICC line in place. IV antibiotics changed to Zosyn per pulmonary. At this time patient denies any chest pain or shortness of breath. Denies any urinary burning or frequency. Patient complaining of abdominal pain and nausea vomiting. On 07/11/2020 patient was seen and examined on the medical floor she is alert and oriented 3 in no distress she is able to tolerate liquid diet well there is no fever or chills no headache or dizziness no chest pain no shortness of breath no cough no nausea or vomiting no abdominal pain no diarrhea no blood in the stools no burning with urination no frequency or urgency and no hematuria On 07/12/2020 patient was seen and examined on the medical floor she is alert and oriented 3 in no apparent distress, she is able to tolerate full liquid d iet well there is no fever or chills no headache or dizziness no chest pain no shortness of breath no cough no nausea or vomiting no abdominal pain no diarrhea no blood in the stools no burning with urination no frequency or urgency and no hematuria. At this time chances that patient will be transferred to [facility] are small due to current increase in Covid 19 cases and no available beds at [facility] plan is to continue to advance diet slowly and continue with IV antibiotics if patient is stable she can be discharged to a rehab center and follow-up with surgical department at [facility] as outpatient On 07/13/2020 patient's alert and oriented 3. Patient has been tolerating full liquid diet. Reports that she has been up out of bed. Patient remains on TPN and lipids. Remains on IV Zosyn. Surgical and infectious disease services following. Patient requesting x-ray be done of her neck due to increased pain. At this time patient denies chest pain or shortness breath. Patient denies any diarrhea. Patient denies any urinary burning or frequency On 07/14/2020 patient was seen and examined on the medical floor she is alert and oriented 3 in no apparent distress she is able to tolerate liquid diet well, she is still maintained on IV Zosyn and on TPN with lipids, patient cond ition is improving significantly, we are awaiting possible transfer to [facility] for evaluation of difficulty swallowing with recurrent aspiration pneumonia, patient had a previous gastrectomy at [facility] 25 years ago, however if there are no available bed to transfer in the next 2 days, patient could be discharged home and arrangement will be made as outpatient to follow-up at the surgical department of [facility]. On 07/15/2020 patient was seen and examined on the medical floor she is alert and oriented times 3 in no distress she is complaining of occasional cough, she also stated that she had episodes of nausea and vomiting last night otherwise there is no fever or chills no headache or dizziness no chest pain no shortness of breath, no abdominal pain no diarrhea no blood in the stools no burning with urination no frequency or urgency and no hematuria On 07/16/2020 patient was seen and examined on the medical floor she is alert and oriented 3 in no distress she is able to tolerate liquid diet well there is no fever or chills no headache or dizziness no chest pain no shortness of breath no cough no nausea or vomiting no abdominal pain no diarrhea no blood in the stools no burning with urination no frequency or urgency and no hematuria, possible discharge to home in the next 1-2 days if unable to transfer to [facility] , possible referral to surgery at [facility] as outpatient. On 07/17/2020 patient was seen and examined on the medical floor she is alert and oriented 3 in no apparent distress is no fever or chills no headache or dizziness no chest pain no shortness of breath no cough no nausea or vomiting no abdominal pain no diarrhea no blood in the stools no burning with urination no frequency or urgency and no hematuria. At this time and apparently patient is not going to be transferred to [facility] due to no availability of beds she has finished an IV course of antibiotic for pneumonia she does not have any fever and have her white blood count is normal, plan is to discontinue IV antibiotics tomorrow and discontinue TPN and discharged patient to home. She was instructed in regard to sustain was liquid diet she will be given a prescription for in short 1 can 3 times daily she was instructed to take a half at bottle of in shore every 3 hours and to stay with mostly liquid diet and to stay upright while eating. Arrangements should be made for follow-up at [facility] surgical department as outpatient. On 07/18/2020 patient's alert and oriented 3. Patient is resting comfortably in bed. Will attempt to wean TPN in half for 6 hours and recheck labs in a.m. with possible discharge tomorrow and patient to follow-up up at [facility] outpatient. Ensure shakes ordered. Patient denies chest pain or shortness breath. Patient denies nausea vomiting or diarrhea. Patient denies any urinary burning or frequency Objective - Vital Signs Vital signs: Vital Signs Temp 98.3 F 07/18/20 11:37 Pulse 89 07/18/20 11:37 Resp 18 07/18/20 11:37 BP 112/67 07/18/20 11:37 Pulse Ox 96 07/18/20 11:37 Intake & Output 07/17/20 07/18/20 07/18/20 18:59 06:59 18:59 Intake Total 1620 2946.3333 Balance 1620 2946.3333 Weight 38.555 kg Intake: Intake, IV Titration 1620 1876.3333 Amount Mvi, Adult No.4 with Vit 660 1036.3333 K 10 ml Trace (Conc-1Ml/ Dose) 1 ml Sodium Acetate 34 meq Potassium Phosphate 10 mmol Sodium Chloride 4Meq/ml Vial 20 meq In Amino Acid 5%-D15w 1,000 ml @ 55 mls/hr IV .[id number] [facility] Rx#: [id number] Piperacillin-Tazobactam 3 200 .375 gm In Sodium Chloride 0.9% 100 ml @ 25 mls/hr IVPB Q8HR [facility] Rx# :[id number] Sodium Chloride 0.9% 1, 960 640 000 ml @ 80 mls/hr IV . [id number] [facility] Rx#:[id number] Oral 1070 Other: # Voids 3 - Exam in general patient is alert and oriented 3 in no apparent distress HEENT head normocephalic and atraumatic Chest supple no JVD no goiter no lymphadenopathy Chest exam reveals a few scattered crackles bilaterally no wheezing Cardiac exam reveals regular heart sounds no gallops no murmurs Abdomen is soft nontender no organomegaly with normal bowel sounds Extremity exam reveals no edema no cyanosis or clubbing - Labs CBC & Chem 7: 07/17/20 04:52 07/18/20 06:05 Labs: Abnormal Lab Results - Last 24 Hours (Table) 07/17/20 07/17/20 07/18/20 Range/Units 17:19 19:59 00:47 BUN (9.0-27.0) mg/dL Est GFR (CKD-EPI)AfAm (60.0-200.0) Est GFR (CKD-EPI)NonAf (60.0-200.0) BUN/Creatinine Ratio (12.00-20.00) Ratio POC Glucose (mg/dL) 100 H 136 H 135 H (75-99) mg/dL 07/18/20 07/18/20 Range/Units 06:05 06:19 BUN 39.0 H (9.0-27.0) mg/dL Est GFR (CKD-EPI)AfAm 39.6 L (60.0-200.0) Est GFR (CKD-EPI)NonAf 34.2 L (60.0-200.0) BUN/Creatinine Ratio 26.00 H (12.00-20.00) Ratio POC Glucose (mg/dL) 107 H (75-99) mg/dL Assessment and Plan Assessment: 1. Intractable vomiting. Zofran ordered. GI service is consulted. Amylase and lipase ordered, she was found to have an obstruction at the level of the diaphragm, patient will be started on TPN today as she is having constant vomiting, recommendation for surgery is to transfer to [facility] where she had her previous gastrectomy, transfer was initiated 2. Pneumonia. Patient recently discharged on antibiotics. We'll also consult infectious disease due to possible aspiration. Antibiotics switched to Zosyn 3. History of peptic ulcer disease 4. History of pancreatitis 5. History of gastrectomy 6. Chronic kidney disease stage III. Labs do appear on baseline 7. Chronic pain. Patient maintained on fentanyl patch 8. Neck pain. X-ray of cervical spine ordered. X-ray completed showing no acute fracture DVT prophylaxis Lovenox. GI prophylaxis Protonix GI, surgical services, pulmonary and infectious disease service is consulted Status post EGD showing no obvious obstruction patient maintained on clear liquid diet Transfer to [facility] in the works but due to increase in COVID Cases bed availability limited Weaning TPN Recheck labs in a.m. Possible discharge in the next 24 hours
[2020-07-18 12:39] LABS: Glucose,Whole Blood 110 mg/dL (75-99)
--- NOTE | 2020-07-18 13:19 | CT ---
EXAMINATION TYPE: CT brain wo con DATE OF EXAM: 07/18/2020 COMPARISON: HISTORY: Headache, acute normal neuro exam CT DLP: 1012.[address] of the brain was performed. The ventricles, basal cisterns and sulci overlying the cerebral convexities demonstrate mild enlargem ent. There is no evidence for intracranial hemorrhage or sulcal effacement. There is decreased attenuation about the periventricular white matter and deep white matter of both c erebral hemispheres, compatible with chronic small vessel ischemia. Differential diagnosis does inclu de demyelination. No mass effects are seen.No midline shift. Osseous calvarium is intact. If symptoms persist consider MRI. IMPRESSION: 1. Age related atrophic and chronic small vessel ischemic change without acute intracranial process s een at this time.
[2020-07-18 17:27] LABS: Glucose,Whole Blood 120 mg/dL (75-99)
[2020-07-18] MEDS: MVI, ADULT NO.4 WITH VIT K 10 ML, TRACE (CONC-1ML/DOSE) 1 ML, SODIUM ACETATE 34 MEQ, PO... IV SCH ×6 (17:27)
[2020-07-18 21:10] VITALS: PULSE 85; RESP 16
[2020-07-18] MEDS: LORATADINE 10 MG TAB PO SCH (21:36)
[2020-07-18] MEDS: FLUTICASONE 50MCG/SPRAY NASAL 16GM EA NOSTRIL PRN (21:36)
--- NOTE | 2020-07-18 22:33 | PN ---
PROGRESS NOTE DATE OF SERVICE: 07/18/2020. REASON FOR FOLLOWUP: Aspiration pneumonia. INTERVAL HISTORY: The patient is currently afebrile. Patient is breathing comfortably. Some nausea, no vomiting. Denies any chest pain, shortness of breath. Cough. No diarrhea. PHYSICAL EXAMINATION: Blood pressure 111/78 with a pulse of 85, temperature 98.1. She is 95% on room air. General description is an elderly female up in the room in no distress. Respiratory system: Unlabored breathing, decreased breath sounds in the base, with no wheeze. Heart S1, S2 regular rate and rhythm. Abdomen soft, no tenderness. LABORATORY DATA: 1.5. DIAGNOSTIC IMPRESSION AND PLAN: Patient with admission to the hospital with nausea and vomiting. This patient did have a stent insertion and is currently waiting for transfer to the with concern for possible aspiration pneumonia. The patient is currently covered with Zosyn to continue and monitor clinical course closely. MMODL / IJN: [id number] /
[2020-07-18] MEDS: MIRTAZAPINE 45 MG TABLET PO SCH (23:19)
[2020-07-19] MEDS: HYDROmorphone 0.5 MG/0.5 ML SYRINGE IVP PRN ×4 (00:15→12:29)
[2020-07-19 01:14] LABS: Glucose,Whole Blood 119 mg/dL (75-99)
[2020-07-19] MEDS: SODIUM CHLORIDE 0.9% 1,000 ML IV SCH (05:13)
[2020-07-19 05:29] VITALS: BP 117/67; TEMP 97.7
[2020-07-19 05:57] LABS: Glucose,Whole Blood 102 mg/dL (75-99)
[2020-07-19] MEDS: LEVOTHYROXINE 88 MCG TAB PO SCH (06:12)
[2020-07-19] MEDS: HYDROcodone/APAP 5-325MG 1 EACH TAB PO PRN ×2 (06:24→12:28)
[2020-07-19 07:06] LABS: Glucose,Whole Blood 111 mg/dL (75-99)
[2020-07-19 07:30] LABS: Ionized Calcium 4.9 mg/dL (4.5-5.3)
[2020-07-19] MEDS: SYMBICORT 160-4.5 MCG INHALER INHALATION SCH (08:38)
[2020-07-19] MEDS: DULoxetine HCL 60 MG CAPSULE.DR PO SCH (09:02)
[2020-07-19] MEDS: hydrOXYzine pamoate 25 MG CAP PO SCH (09:02)
[2020-07-19] MEDS: THIAMINE 100 MG TAB PO SCH (09:02)
[2020-07-19] MEDS: PANTOPRAZOLE 40 MG TABLET PO SCH (09:02)
[2020-07-19] MEDS: busPIRone HCl 10 MG TAB PO SCH (09:03)
[2020-07-19] MEDS: ENOXAPARIN 30 MG/0.3 ML SYRINGE SQ SCH (09:03)
[2020-07-19] MEDS: BUTALB/APAP/CAFF 50-325-40MG TAB PO PRN (09:04)
[2020-07-19] MEDS: FLUTICASONE 50MCG/SPRAY NASAL 16GM EA NOSTRIL PRN (09:04)
[2020-07-19] MEDS: buPROPion XL 300 MG TAB.ER.24H PO SCH (09:04)
[2020-07-19] MEDS: PIPERACILLIN-TAZOBACTAM 3.375 GM in SODIUM CHLORIDE 0.9% 100 ML IVPB SCH ×3 (09:07)
[2020-07-19] MEDS: CHOLESTYRAMINE (WITH SUGAR) 4 GM PACKET PO SCH (09:08)
[2020-07-19] MEDS: FERROUS SULFATE 325 MG TAB PO SCH (09:19)
[2020-07-19] MEDS: FOLIC ACID 1 MG TAB PO SCH (09:19)
[2020-07-19] MEDS: FUROSEMIDE 20 MG TAB PO SCH (09:19)
[2020-07-19] MEDS: ONDANSETRON 4 MG/2 ML VIAL IVP PRN ×2 (09:20)
[2020-07-19 11:08] LABS: Glucose,Whole Blood 99 mg/dL (75-99)
[2020-07-19] MEDS: MVI, ADULT NO.4 WITH VIT K 10 ML, TRACE (CONC-1ML/DOSE) 1 ML, SODIUM ACETATE 34 MEQ, PO... IV SCH ×6 (11:23)
[2020-07-19] MEDS: SUMAtriptan succinate 50 MG TAB PO PRN (11:27)
[2020-07-19 11:58] LABS: African American GFR (CKD) 39.6 (60.0-200.0); Albumin 3.4 g/dL (3.80-4.90); Albumin/Globulin Ratio 1.89 (1.60-3.17); Anion Gap 7.8 mmol/L (4.00-12.00); BUN/Creat Ratio 25.33 Ratio (12.00-20.00); Calcium 8.8 mg/dL (8.7-10.3); Carbon Dioxide 32.2 mmol/L (21.6-31.8); Globulin 1.8 g/dL (1.6-3.3); Magnesium 1.9 mg/dL (1.5-2.4); Non-African American GFR(CKD) 34.2 (60.0-200.0); Phosphorus 3.4 mg/dL (2.4-5.1); Potassium 4.7 mmol/L (3.5-5.5); Total Bilirubin 0.1 mg/dL (0.2-1.2); Total Protein 5.2 g/dL (6.2-8.2)
--- NOTE | 2020-07-20 11:01 | P.DS ---
Providers Date of admission: 07/09/20 09:35 Expected date of discharge: 07/19/20 Attending physician: Palmer Desir Consults: 07/08/20 10:14 Consult Physician Routine Consulting Provider: Garry Sanchez Consult Reason/Comments: pneumonia Do you want consulting provider notified?: Yes 07/08/20 11:26 Consult Physician Routine Consulting Provider: Jas Gregorio Consult Reason/Comments: Pneumonia possible aspiration Do you want consulting provider notified?: Yes 07/09/20 11:55 Consult Physician Urgent Consulting Provider: Nathan Guadalupe Consult Reason/Comments: obstruction seen on barium swallow at [facility] above diaphragm Do you want consulting provider notified?: Yes Primary care physician: Ale Eli [facility] Course: Discharge diagnosis 1. Intractable vomiting. Zofran ordered. GI service is consulted. Amylase and lipase ordered, she was found to have an obstruction at the level of the diaphragm, patient will be started on TPN today as she is having constant vomiting, recommendation for surgery is to transfer to [facility] where she had her previous gastrectomy, transfer was initiated 2. Pneumonia. Patient recently discharged on antibiotics. We'll also consult infectious disease due to possible aspiration. Antibiotics switched to Zosyn 3. History of peptic ulcer disease 4. History of pancreatitis 5. History of gastrectomy 6. Chronic kidney disease stage III. Labs do appear on baseline 7. Chronic pain. Patient maintained on fentanyl patch 8. Neck pain. X-ray of cervical spine ordered. X-ray completed showing no acute fracture DVT prophylaxis Lovenox. GI prophylaxis Protonix GI, surgical services, pulmonary and infectious disease service is consulted Status post EGD showing no obvious obstruction patient maintained on clear liquid diet Transfer to [facility] Hospital course This is a 75-year-old female patient who presents to the ER with complaints of nausea and vomiting. Patient was recently discharged and treated for pneumonia. Patient reports that she was unable to take her antibiotic without vomiting which prompted her to come the ER for further evaluation. Patient has a past medical history of asthma, DVT, GERD, memory impairment, pancreatitis and chronic pain. Head CT was performed in ER showing negative unenhanced head CT scan no change. Chest x-ray performed showing bilateral pulmonary infiltrates similar to recent exam failure. Started on IV Rocephin for pneumonia and pulmonary service is consulted. GI service is consulted for the nausea Protonix and Zofran ordered. Creatinine 1.59 and bun 30 this does appear on patient's baseline. At this time patient is resting comfortably in bed states she has been able to keep down sara maximino. Patient denies chest pain. Patient does report some wheezing and coughing. Patient denies any urinary burning or frequency. Patient denies any diarrhea On 07/09/2020 patient was seen and examined on the medical floor she is alert and oriented 3 in no apparent distress she is complaining of nausea and vomiting otherwise she denies any complaints at this time barium swallow evaluation revealed evidence of obstruction at the liver of diaphragmatic surgical consultation requested and the recommendation for surgery is to transfer patient to [facility] where she had her previous gastrectomy otherwise patient is doing well there is no fever or chills no headache or dizziness no chest pain no abdominal pain no diarrhea no blood in the stools no burning with urination no frequency or urgency and no hematuria patient is having recurrent episodes of vomiting and is unable to keep any food down at this time will ask for a PICC line placement patient will be started on TPN transfer to [facility] was initiated On 07/10/2020 patient is alert and oriented 3 requesting increasing pain medication. Plans for EGD today per surgical services and transferred you a vomiting process. PICC line in place. IV antibiotics changed to Zosyn per pulmonary. At this time patient denies any chest pain or shortness of breath. Denies any urinary burning or frequency. Patient complaining of abdominal pain and nausea vomiting. On 07/11/2020 patient was seen and examined on the medical floor she is alert and oriented 3 in no distress she is able to tolerate liquid diet well there is no fever or chills no headache or dizziness no chest pain no shortness of breath no cough no nausea or vomiting no abdominal pain no diarrhea no blood in the stools no burning with urination no frequency or urgency and no hematuria On 07/12/2020 patient was seen and examined on the medical floor she is alert and oriented 3 in no apparent distress, she is able to tolerate full liquid diet well there is no fever or chills no headache or dizziness no chest pain no shortness of breath no cough no nausea or vomiting no abdominal pain no diarrhea no blood in the stools no burning with urination no frequency or urgency and no hematuria. At this time chances that patient will be transferred to [facility] are small due to current increase in Covid 19 cases and no available beds at [facility] plan is to continue to advance diet slowly and continue with IV antibiotics if patient is stable she can be discharged to a rehab center and follow-up with surgical department at [facility] as outpatient On 07/13/2020 patient's alert and oriented 3. Patient has been tolerating full liquid diet. Reports that she has been up out of bed. Patient remains on TPN and lipids. Remains on IV Zosyn. Surgical and infectious disease services following. Patient requesting x-ray be done of her neck due to increased pain. At this time patient denies chest pain or shortness breath. Patient denies any diarrhea. Patient denies any urinary burning or frequency On 07/14/2020 patient was seen and examined on the medical floor she is alert and oriented 3 in no apparent distress she is able to tolerate liquid diet well, she is still maintained on IV Zosyn and on TPN with lipids, patient condition is improving significantly, we are awaiting possible transfer to [facility] for evaluation of difficulty swallowing with recurrent aspiration pneumonia, patient had a previous gastrectomy at [facility] 25 years ago, however if there are no available bed to transfer in the next 2 days, patient could be discharged home and arrangement will be made as outpatient to follow-up at the surgical department of [facility]. On 07/15/2020 patient was seen and examined on the medical floor she is alert and oriented times 3 in no distress she is complaining of occasional cough, she also stated that she had episodes of nausea and vomiting last night otherwise there is no fever or chills no headache or dizziness no chest pain no shortness of breath, no abdominal pain no diarrhea no blood in the stools no burning with urination no frequency or urgency and no hematuria On 07/16/2020 patient was seen and examined on the medical floor she is alert and oriented 3 in no distress she is able to tolerate liquid diet well there is no fever or chills no headache or dizziness no chest pain no shortness of breath no cough no nausea or vomiting no abdominal pain no diarrhea no blood in the stools no burning with urination no frequency or urgency and no hematuria, possible discharge to home in the next 1-2 days if unable to transfer to [facility] , possible referral to surgery at [facility] as outpatient. On 07/17/2020 patient was seen and examined on the medical floor she is alert and oriented 3 in no apparent distress is no fever or chills no headache or dizziness no chest pain no shortness of breath no cough no nausea or vomiting no abdominal pain no diarrhea no blood in the stools no burning with urination no frequency or urgency and no hematuria. At this time and apparently patient is not going to be transferred to [facility] due to no availability of beds she has finished an IV course of antibiotic for pneumonia she does not have any fever and have her white blood count is normal, plan is to discontinue IV antibiotics tomorrow and discontinue TPN and discharged patient to home. She was instructed in regard to sustain was liquid diet she will be given a prescription for in short 1 can 3 times daily she was instructed to take a half at bottle of in shore every 3 hours and to stay with mostly liquid diet and to stay upright while eating. Arrangements should be made for follow-up at [facility] surgical department as outpatient. On 07/18/2020 patient's alert and oriented 3. Patient is resting comfortably in bed. Will attempt to wean TPN in half for 6 hours and recheck labs in a.m. with possible discharge tomorrow and patient to follow-up up at [facility] outpatient. Ensure shakes ordered. Patient denies chest pain or shortness breath. Patient denies nausea vomiting or diarrhea. Patient denies any urinary burning or frequency On 07/19/2020 patient transferred to [facility] for higher level of care. Patient was transferred in stable condition. Patient Condition at Discharge: Stable Plan - Discharge Summary Discharge Rx Participant: No New Discharge Prescriptions: No Action DULoxetine HCL [Cymbalta] 60 mg PO DAILY buPROPion HCL [Wellbutrin XL] 300 mg PO DAILY Ferrous Sulfate [Iron (65 MG Elemental)] 325 mg PO BID Levocetirizine Dihydrochloride [Xyzal] 5 mg PO HS calcitrioL [Calcitriol] 1 mcg PO MOWEFR Levothyroxine Sodium [Synthroid] 88 mcg PO DAILY Albuterol Inhaler [Ventolin Hfa Inhaler] 1 puff INHALATION RT-Q6H PRN PRN Reason: Shortness Of Breath busPIRone HCL [Buspar] 30 mg PO BID Cholestyramine (with Sugar) [Cholestyramine Powder] 4 gm PO BID hydrOXYzine pamoate [hydrOXYzine PAMOATE] 25 mg PO TID Thiamine [Vitamin B-1] 100 mg PO DAILY Potassium Chloride ER [K-Dur 10] 10 meq PO TID Omeprazole [PriLOSEC] 20 mg PO DAILY HYDROcodone/APAP 5-325MG [[place] 5-325] 1 tab PO Q6H PRN PRN Reason: Migraine Headache Pantoprazole Sodium [Protonix] 40 mg PO BID 30 Days #60 tablet. fentaNYL 75MCG/HR PATCH [Duragesic 75MCG/HR] 1 patch TRANSDERM Q72H Budesonide/Formoterol Fumarate [Symbicort 160-4.5 Mcg Inhaler] 2 puff INHALATION RT-BID Butalb/APAP/Caff 50-325-40Mg [Fioricet 50-325-40] 1 tab PO Q4H PRN PRN Reason: Migraine Headache Fluticasone Nasal [place] [Flonase Nasal [place]] 1 spray EA NOSTRIL DAILY PRN PRN Reason: Allergy Symptoms Folic Acid 0.8 mg PO DAILY Furosemide [Lasix] 20 mg PO DAILY Mirtazapine 45 mg PO HS SUMAtriptan SUCCINATE [Imitrex] 50 mg PO DAILY PRN PRN Reason: Migraine Headache Amoxicillin/Potassium Clav [Augmentin 875-125 Tablet] 1 tab PO Q12HR 7 Days #2 tab guaiFENesin [Mucinex] 600 mg PO Q12HR PRN tablet.er PRN Reason: Cough Discharge Medication List DULoxetine HCL [Cymbalta] 60 mg PO DAILY 09/17/13 [History] Ferrous Sulfate [Iron (65 MG Elemental)] 325 mg PO BID 11/06/15 [History] buPROPion HCL [Wellbutrin XL] 300 mg PO DAILY 11/06/15 [History] Levocetirizine Dihydrochloride [Xyzal] 5 mg PO HS 05/31/17 [History] Levothyroxine Sodium [Synthroid] 88 mcg PO DAILY 06/07/19 [History] calcitrioL [Calcitriol] 1 mcg PO MOWEFR 06/07/19 [History] Albuterol Inhaler [Ventolin Hfa Inhaler] 1 puff INHALATION RT-Q6H PRN 10/05/19 [History] busPIRone HCL [Buspar] 30 mg PO BID 04/14/20 [History] Cholestyramine (with Sugar) [Cholestyramine Powder] 4 gm PO BID 04/18/20 [History] HYDROcodone/APAP 5-325MG [[place] 5-325] 1 tab PO Q6H PRN 04/18/20 [History] Omeprazole [PriLOSEC] 20 mg PO DAILY 04/18/20 [History] Potassium Chloride ER [K-Dur 10] 10 meq PO TID 04/18/20 [History] Thiamine [Vitamin B-1] 100 mg PO DAILY 04/18/20 [History] hydrOXYzine pamoate [hydrOXYzine PAMOATE] 25 mg PO TID 04/18/20 [History] Pantoprazole Sodium [Protonix] 40 mg PO BID 30 Days #60 tablet.dr 04/27/20 [Rx] Budesonide/Formoterol Fumarate [Symbicort 160-4.5 Mcg Inhaler] 2 puff INHALATION RT-BID 06/30/20 [History] Butalb/APAP/Caff 50-325-40Mg [Fioricet 50-325-40] 1 tab PO Q4H PRN 06/30/20 [History] Fluticasone Nasal [place] [Flonase Nasal [place]] 1 spray EA NOSTRIL DAILY PRN 06/30/20 [History] Folic Acid 0.8 mg PO DAILY 06/30/20 [History] Furosemide [Lasix] 20 mg PO DAILY 06/30/20 [History] Mirtazapine 45 mg PO HS 06/30/20 [History] SUMAtriptan SUCCINATE [Imitrex] 50 mg PO DAILY PRN 06/30/20 [History] fentaNYL 75MCG/HR PATCH [Duragesic 75MCG/HR] 1 patch TRANSDERM Q72H 06/30/20 [History] Amoxicillin/Potassium Clav [Augmentin 875-125 Tablet] 1 tab PO Q12HR 7 Days #2 tab 07/03/20 [Rx] guaiFENesin [Mucinex] 600 mg PO Q12HR PRN tablet.er 07/03/20 [Rx] Follow up Appointment(s)/Referral(s): Ale Eli MD [Primary Care Provider] - 1-2 days Activity/Diet/Wound Care/Special Instructions: Pt can call [facility] to get an appt for a follow up. Discharge Disposition: OTHER INSTITUTION NOT DEFINED
== END 2020-07-19 13:04 | disposition other institution (70) | DRG 177 ==
LOC: EC 20:34 → 5NMEDONC 22:44 → OBSVTOIN 07-09 09:35
PROVIDERS: ADMIT Internal Medicine; ATTEND Internal Medicine
PROC: 0DJ08ZZ Inspection of Upper Intestinal Tract, Via Natural or Artificial Opening Endoscopic (ICD-10-PCS; 2020-07-10)
PROC: 02HV33Z Insertion of Infusion Device into Superior Vena Cava, Percutaneous Approach (ICD-10-PCS; principal; 2020-07-16)
PROC: 3E0436Z Introduction of Nutritional Substance into Central Vein, Percutaneous Approach (ICD-10-PCS; 2020-07-16)
DX: J69.0 Pneumonitis due to inhalation of food and vomit (principal); E43 Unspecified severe protein-calorie malnutrition; K44.0 Diaphragmatic hernia with obstruction, without gangrene; Z68.1 Body mass index [BMI] 19.9 or less, adult; E87.2 Acidosis; K31.1 Adult hypertrophic pyloric stenosis; Z87.01 Personal history of pneumonia (recurrent); Z82.49 Family history of ischemic heart disease and other diseases of the circulatory system; Z80.51 Family history of malignant neoplasm of kidney; Z20.822 Contact with and (suspected) exposure to COVID-19; Z80.41 Family history of malignant neoplasm of ovary; J45.40 Moderate persistent asthma, uncomplicated; D50.9 Iron deficiency anemia, unspecified; E03.9 Hypothyroidism, unspecified; E78.5 Hyperlipidemia, unspecified; Z86.718 Personal history of other venous thrombosis and embolism; F03.90 Unspecified dementia, unspecified severity, without behavioral disturbance, psychotic disturbance, mood disturbance, and anxiety; Z87.11 Personal history of peptic ulcer disease; Z90.3 Acquired absence of stomach [part of]; R13.10 Dysphagia, unspecified; K91.1 Postgastric surgery syndromes; G43.909 Migraine, unspecified, not intractable, without status migrainosus; N18.30 Chronic kidney disease, stage 3 unspecified; Z79.891 Long term (current) use of opiate analgesic; G89.29 Other chronic pain; M54.2 Cervicalgia; Z79.890 Hormone replacement therapy
CPT/HCPCS: 36415; 36573; 43235; 70450; 71046; 72050; 74220; 80048; 80053; 81001; 82150; 82330; 83605; 83690; 83735; 83880; 84100; 84145; 84478; 84484; 85025; 85610; 85730; 86140; 87635; 93005; 94640; 94760; 96361; 96374; 99285

== ENCOUNTER 2020-08-07 19:29 | Emergency (ER) | payer MEDICARE, OTHER ==
[2020-08-07] MEDS ORDERED: SODIUM CHLORIDE 0.9% 1,000 ML IV STA (19:56)
[2020-08-07] MEDS ORDERED: LORazepam 2 MG/ML INJ IV STA (19:56)
--- NOTE | 2020-08-07 20:05 | ED ---
General Adult HPI - General Chief complaint: Recheck/Abnormal Lab/Rx Stated complaint: poss seizure Time Seen by Provider: 08/07/20 19:52 Source: patient, RN notes reviewed Mode of arrival: wheelchair Limitations: no limitations - History of Present Illness Initial comments: 75-year-old female presented emergency Department with strongly tremors since 6 PM this evening. She does have an extensive past medical history. She noted that she has a history of gastric intestinal issues and she is on TPN at home and currently of liquids. She notes that she did take a [place] at 5:00 this afternoon to help with pain. She was sitting up in bed in mild distress and planning of a headache it's an 8 out of 10 and unrelieved with [place]. She stated that the headache was the only pain. She denied being cold or feverish. She denied any chest pain shortness breath nausea vomiting diarrhea constipation fever fatigue chills. - Related Data Home Medications Medication Instructions Recorded Confirmed DULoxetine HCL [Cymbalta] 60 mg PO DAILY 09/17/13 07/07/20 Ferrous Sulfate [Iron (65 MG 325 mg PO BID 11/06/15 07/07/20 Elemental)] buPROPion HCL [Wellbutrin XL] 300 mg PO DAILY 11/06/15 07/07/20 Levocetirizine Dihydrochloride 5 mg PO HS 05/31/17 07/07/20 [Xyzal] Levothyroxine Sodium [Synthroid] 88 mcg PO DAILY 06/07/19 07/07/20 calcitrioL [Calcitriol] 1 mcg PO MOWEFR 06/07/19 07/07/20 Albuterol Inhaler [Ventolin Hfa 1 puff INHALATION RT-Q6H PRN 10/05/19 07/07/20 Inhaler] busPIRone HCL [Buspar] 30 mg PO BID 04/14/20 07/07/20 Cholestyramine (with Sugar) 4 gm PO BID 04/18/20 07/07/20 [Cholestyramine Powder] HYDROcodone/APAP 5-325MG [[place] 1 tab PO Q6H PRN 04/18/20 07/07/20 5-325] Omeprazole [PriLOSEC] 20 mg PO DAILY 04/18/20 07/07/20 Potassium Chloride ER [K-Dur 10] 10 meq PO TID 04/18/20 07/07/20 Thiamine [Vitamin B-1] 100 mg PO DAILY 04/18/20 07/07/20 hydrOXYzine pamoate [hydrOXYzine 25 mg PO TID 04/18/20 07/07/20 PAMOATE] Budesonide/Formoterol Fumarate 2 puff INHALATION RT-BID 06/30/20 07/07/20 [Symbicort 160-4.5 Mcg Inhaler] Butalb/APAP/Caff 50-325-40Mg 1 tab PO Q4H PRN 06/30/20 07/07/20 [Fioricet 50-325-40] Fluticasone Nasal [place] [Flonase 1 spray EA NOSTRIL DAILY PRN 06/30/20 07/07/20 Nasal [place]] Folic Acid 0.8 mg PO DAILY 06/30/20 07/07/20 Furosemide [Lasix] 20 mg PO DAILY 06/30/20 07/07/20 Mirtazapine 45 mg PO HS 06/30/20 07/07/20 SUMAtriptan SUCCINATE [Imitrex] 50 mg PO DAILY PRN 06/30/20 07/07/20 fentaNYL 75MCG/HR PATCH [Duragesic 1 patch TRANSDERM Q72H 06/30/20 07/07/20 75MCG/HR] Previous Rx's Medication Instructions Recorded Pantoprazole Sodium [Protonix] 40 mg PO BID 30 Days #60 tablet. 04/27/20 Amoxicillin/Potassium Clav 1 tab PO Q12HR 7 Days #2 tab 07/03/20 [Augmentin 875-125 Tablet] guaiFENesin [Mucinex] 600 mg PO Q12HR PRN tablet.er 07/03/20 Allergies Allergy/AdvReac Type Severity Reaction Status Date / Time denosumab [From Prolia] Allergy SEVERE Verified 08/07/20 19:45 CALCIUM LOSS DUST Allergy Itching Uncoded 08/07/20 19:45 MOLDS Allergy Itching Uncoded 08/07/20 19:45 Review of Systems ROS Statement: Those systems with pertinent positive or pertinent negative responses have been documented in the HPI. ROS Other: All systems not noted in ROS Statement are negative. 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 Fell in May 2019-FX HIP-LAID ON FLOOR FOR 3 DAYS hit back of head. States had short term memory problems until admit in March, discovered hemoglobin was low (anemia), when corrected memory has improved. History of Any Multi-Drug Resistant Organisms: None Reported Past Surgical History: Back Surgery, Bowel Resection Additional Past Surgical History / Comment(s): LOWER BACK SURGERY lamenectomy/discetomy then had a revison of that sx. 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, nasal sx d/t broken nose, colonoscopy/egd, PAIN CLINIC PROCEDURES Past Anesthesia/Blood Transfusion Reactions: No Reported Reaction Additional Past Anesthesia/Blood Transfusion Reaction / Comment(s): PT RECIEVED BLOOD TRANSFUSIONS AFTER STOMACH SURGERY Past Psychological History: Anxiety, Depression, Panic Disorder Smoking Status: Never smoker Past Alcohol Use History: None Reported Past Drug Use History: None Reported - Past Family History Father Family Medical History: Cancer, Coronary Artery Disease (CAD) Additional Family Medical History / Comment(s): FATHER HAD BLADDER AND KIDNEY CANCER. FATHER HAD TB WHEN HE WAS A CHILD .FATHER AT AGE 87. Mother Family Medical History: Cancer Additional Family Medical History / Comment(s): MOTHER AT AGE 58 OF OVARIAN CANCER. General Exam Limitations: no limitations General appearance: alert, in distress, other (She appears malnourished.) Head exam: Present: atraumatic, normocephalic, normal inspection Eye exam: Present: normal appearance, PERRL, EOMI. Absent: scleral icterus, conjunctival injection, periorbital swelling Neck exam: Present: normal inspection. Absent: tenderness, meningismus, lymphadenopathy Respiratory exam: Present: normal lung sounds bilaterally. Absent: respiratory distress, wheezes, rales, rhonchi, stridor Cardiovascular Exam: Present: regular rate, normal rhythm, normal heart sounds. Absent: systolic murmur, diastolic murmur, rubs, gallop, clicks GI/Abdominal exam: Present: soft, normal bowel sounds. Absent: distended, tenderness, guarding, rebound, rigid Extremities exam: Present: normal inspection, full ROM, normal capillary refill. Absent: tenderness, pedal edema, joint swelling, calf tenderness Neurological exam: Present: alert, oriented X3, CN II-XII intact Psychiatric exam: Present: normal affect, normal mood Skin exam: Present: warm, dry, intact, normal color. Absent: rash Course Vital Signs 08/07/20 19:40 Temperature 98.1 F Pulse Rate 111 H Respiratory 24 Rate Blood Pressure 162/88 O2 Sat by Pulse 99 Oximetry EKG Findings - EKG Comments: EKG Findings:: Ventricular rate 85 bpm, UT interval 122 ms, QRS duration 70 ms, QT/QTC 378/449 ms, PRT axes 60/64/72. No sinus rhythm, possible left atrial enlargement, septal infarct, age undetermined, abnormal ECG. Medical Decision Making - Medical Decision Making 75-year-old female complaining of extremity tremors since 6:00 this afternoon. Labs, 1 L normal saline, 1 mg Ativan, EKG ordered. Labs unremarkable from previous studies. Case discussed with Dr. Levin, patient can discharge home with follow-up to primary care - Lab Data Result diagrams: 08/07/20 20:06 08/07/20 20:06 Lab Results 08/07/20 08/07/20 08/07/20 Range/Units 20:06 20:06 20:06 WBC 12.1 H (3.8-10.6) k/uL RBC 3.73 L (3.80-5.40) m/uL Hgb 10.7 L (11.4-16.0) gm/dL Hct 35.3 (34.0-46.0) % MCV 94.8 (80.0-100.0) fL MCH 28.7 (25.0-35.0) pg MCHC 30.2 L (31.0-37.0) g/dL RDW 16.6 H (11.5-15.5) % Plt Count 526 H (150-450) k/uL MPV 6.8 Neutrophils % 70 % Lymphocytes % 17 % Monocytes % 5 % Eosinophils % 5 % Basophils % 1 % Neutrophils # 8.5 H (1.3-7.7) k/uL Lymphocytes # 2.1 (1.0-4.8) k/uL Monocytes # 0.5 (0-1.0) k/uL Eosinophils # 0.5 (0-0.7) k/uL Basophils # 0.1 (0-0.2) k/uL Hypochromasia Moderate Anisocytosis Slight Sodium 135 L (137-145) mmol/L Potassium 5.0 (3.5-5.1) mmol/L Chloride 107 (98-107) mmol/L Carbon Dioxide 19 L (22-30) mmol/L Anion Gap 9 mmol/L BUN 27 H (7-17) mg/dL Creatinine 1.27 H (0.52-1.04) mg/dL Est GFR (CKD-EPI)AfAm 49 (>60 ml/min/1.73 sqM) Est GFR (CKD-EPI)NonAf 42 (>60 ml/min/1.73 sqM) Glucose 87 (74-99) mg/dL Calcium 9.3 (8.4-10.2) mg/dL Total Bilirubin 0.4 (0.2-1.3) mg/dL AST 74 H (14-36) U/L ALT 57 H (4-34) U/L Alkaline Phosphatase 450 H (38-126) U/L Creatine Kinase 62 (30-135) U/L Troponin I (0.000-0.034) ng/mL Total Protein 6.8 (6.3-8.2) g/dL Albumin 3.9 (3.5-5.0) g/dL Amylase 144 H (30-110) U/L Lipase 372 H (23-300) U/L Urine Color Yellow Urine Appearance Clear (Clear) Urine pH 6.0 (5.0-8.0) Ur Specific [place] 1.026 (1.001-1.035) Urine Protein Trace H (Negative) Urine Glucose (UA) Negative (Negative) Urine Ketones Negative (Negative) Urine Blood Negative (Negative) Urine Nitrite Negative (Negative) Urine Bilirubin Negative (Negative) Urine Urobilinogen <2.0 (<2.0) mg/dL Ur Leukocyte Esterase Large H (Negative) Urine RBC 4 (0-5) /hpf Urine WBC 27 H (0-5) /hpf Ur Squamous Epith Cells 3 (0-4) /hpf 08/07/20 Range/Units 20:06 WBC (3.8-10.6) k/uL RBC (3.80-5.40) m/uL Hgb (11.4-16.0) gm/dL Hct (34.0-46.0) % MCV (80.0-100.0) fL MCH (25.0-35.0) pg MCHC (31.0-37.0) g/dL RDW (11.5-15.5) % Plt Count (150-450) k/uL MPV Neutrophils % % Lymphocytes % % Monocytes % % Eosinophils % % Basophils % % Neutrophils # (1.3-7.7) k/uL Lymphocytes # (1.0-4.8) k/uL Monocytes # (0-1.0) k/uL Eosinophils # (0-0.7) k/uL Basophils # (0-0.2) k/uL Hypochromasia Anisocytosis Sodium (137-145) mmol/L Potassium (3.5-5.1) mmol/L Chloride (98-107) mmol/L Carbon Dioxide (22-30) mmol/L Anion Gap mmol/L BUN (7-17) mg/dL Creatinine (0.52-1.04) mg/dL Est GFR (CKD-EPI)AfAm (>60 ml/min/1.73 sqM) Est GFR (CKD-EPI)NonAf (>60 ml/min/1.73 sqM) Glucose (74-99) mg/dL Calcium (8.4-10.2) mg/dL Total Bilirubin (0.2-1.3) mg/dL AST (14-36) U/L ALT (4-34) U/L Alkaline Phosphatase (38-126) U/L Creatine Kinase (30-135) U/L Troponin I <0.012 (0.000-0.034) ng/mL Total Protein (6.3-8.2) g/dL Albumin (3.5-5.0) g/dL Amylase (30-110) U/L Lipase (23-300) U/L Urine Color Urine Appearance (Clear) Urine pH (5.0-8.0) Ur Specific [place] (1.001-1.035) Urine Protein (Negative) Urine Glucose (UA) (Negative) Urine Ketones (Negative) Urine Blood (Negative) Urine Nitrite (Negative) Urine Bilirubin (Negative) Urine Urobilinogen (<2.0) mg/dL Ur Leukocyte Esterase (Negative) Urine RBC (0-5) /hpf Urine WBC (0-5) /hpf Ur Squamous Epith Cells (0-4) /hpf - EKG Data -: EKG Interpreted by Me EKG shows normal: sinus rhythm Rate: normal EKG Comments: Ventricular rate 85 bpm, UT interval 122 ms, QRS duration 70 ms, QT/QTC 378/449 ms, PRT axes 60/64/72. No sinus rhythm, possible left atrial enlargement, septal infarct, age und etermined, abnormal ECG. Disposition Clinical Impression: Tremor, Headache Disposition: HOME SELF-CARE Condition: Stable Instructions (If sedation given, give patient instructions): Tremors (ED) Additional Instructions: Please return to the Emergency Department if symptoms worsen or any other concerns. Follow-up with primary care in 2-4 days. Continue take at home medications as prescribed. Is patient prescribed a controlled substance at d/c from ED?: No Referrals: Ale Eli MD [Primary Care Provider] - 1-2 days Time of Disposition: 22:21
[2020-08-07 20:21] LABS: Anisocytosis Slight; Basophils # (A) 0.1 k/uL (0-0.2); Basophils % (A) 1 %; Eosinophils # (A) 0.5 k/uL (0-0.7); Eosinophils % (A) 5 %; HCT 35.3 % (34.0-46.0); HGB 10.7 gm/dL (11.4-16.0); Hypochromasia Moderate; Lymphocytes # (A) 2.1 k/uL (1.0-4.8); Lymphocytes % (A) 17 %; MCH 28.7 pg (25.0-35.0); MCHC 30.2 g/dL (31.0-37.0); MCV 94.8 fL (80.0-100.0); Mean Platelet Volume 6.8; Monocytes # (A) 0.5 k/uL (0-1.0); Monocytes % (A) 5 %; Neutrophils # (A) 8.5 k/uL (1.3-7.7); Neutrophils % (A) 70 %; Platelet Count 526 k/uL (150-450); RBC 3.73 m/uL (3.80-5.40); RDW 16.6 % (11.5-15.5); WBC 12.1 k/uL (3.8-10.6)
[2020-08-07 20:30] LABS: Albumin 3.9 g/dL (3.5-5.0); Calcium 9.3 mg/dL (8.4-10.2); Total Bilirubin 0.4 mg/dL (0.2-1.3); Total Protein 6.8 g/dL (6.3-8.2)
[2020-08-07 22:08] LABS: Appearance,Urine Clear (Clear); Bilirubin,Urine Negative (Negative); Blood,Urine Negative (Negative); Color,Urine Yellow; Glucose,Urine (UA) Negative (Negative); Ketones,Urine Negative (Negative); Leukocyte Esterase,Urine Large (Negative); Nitrite,Urine Negative (Negative); Protein,Urine Trace (Negative); RBC,Urine 4 /hpf (0-5); Specific Gravity,Urine 1.026 (1.001-1.035); Squamous Epithelial Cell,Urine 3 /hpf (0-4); Urobilinogen,Urine <2.0 mg/dL (<2.0); WBC,Urine 27 /hpf (0-5)
[2020-08-07] MEDS ORDERED: cefTRIAXone IN SWFI 1,000 MG/10 ML SYRINGE IVP STA (22:21)
[2020-08-07 22:25] VITALS: BP 156/70; PULSE 98; RESP 18; TEMP 98.2
== END 2020-08-07 22:30 | disposition home or self-care (01) ==
LOC: EC 19:29
DX: R51.9 Headache, unspecified (principal); R25.1 Tremor, unspecified; J45.909 Unspecified asthma, uncomplicated; K21.9 Gastro-esophageal reflux disease without esophagitis; Z86.718 Personal history of other venous thrombosis and embolism
CPT/HCPCS: 36415; 93005; 80053; 82150; 82550; 83690; 84484; 85025; 81001; 99284; 96374; 96375; 96361; J2060; J0696

== ENCOUNTER 2020-08-19 17:06 | Emergency (ER) | payer MEDICARE, OTHER ==
[2020-08-19 17:48] VITALS: TEMP 98.1
[2020-08-19] MEDS ORDERED: FAMOTIDINE 20 MG/2 ML VIAL IV STA (18:01)
[2020-08-19] MEDS ORDERED: SODIUM CHLORIDE 0.9% 500 ML 500 ML IV STA (18:01)
--- NOTE | 2020-08-19 18:07 | ED ---
Abdominal Pain HPI - General Chief Complaint: Abdominal Pain Stated Complaint: pain all over Time Seen by Provider: 08/19/20 17:49 Source: patient, RN notes reviewed Mode of arrival: ambulatory Limitations: no limitations - History of Present Illness Initial Comments: 74-year-old white female presents to the emergency room with complaints of chest and abdominal pain. States that she has concerns for aspiration pneumonia. States had a stomach removed 20 years ago is on TPN through her left PICC line. As a liquid diet and this feels as though when she had her aspiration pneumonia. Patient states that this pain started on Thursday and radiates up into her chest at the burning sensation. Patient denies fevers, nausea vomiting. States has dumping syndrome. No blood in her vomit or stool. Patient denies fevers. Patient has history of DVTs, asthma, GERD, chronic renal failure, anemia, migraine headaches, and TIAs. Patient had a hip fracture in May 2019. Patient states cannot find her Remeron or her Speed at home. MD Complaint: abdominal pain -: days(s) (2) Location: diffuse Radiation: chest Severity: severe Severity scale (1-10): 8 Quality: burning Consistency: constant Improves With: other (sitting upright) Worsens With: other (laying flat) Context: other (Feels like when she had aspiration pneumonia) Associated Symptoms: denies other symptoms - Related Data Home Medications Medication Instructions Recorded Confirmed DULoxetine HCL [Cymbalta] 60 mg PO DAILY 09/17/13 07/07/20 Ferrous Sulfate [Iron (65 MG 325 mg PO BID 11/06/15 07/07/20 Elemental)] buPROPion HCL [Wellbutrin XL] 300 mg PO DAILY 11/06/15 07/07/20 Levocetirizine Dihydrochloride 5 mg PO HS 05/31/17 07/07/20 [Xyzal] Levothyroxine Sodium [Synthroid] 88 mcg PO DAILY 06/07/19 07/07/20 calcitrioL [Calcitriol] 1 mcg PO MOWEFR 06/07/19 07/07/20 Albuterol Inhaler [Ventolin Hfa 1 puff INHALATION RT-Q6H PRN 10/05/19 07/07/20 Inhaler] busPIRone HCL [Buspar] 30 mg PO BID 04/14/20 07/07/20 Cholestyramine (with Sugar) 4 gm PO BID 04/18/20 07/07/20 [Cholestyramine Powder] HYDROcodone/APAP 5-325MG [[place] 1 tab PO Q6H PRN 04/18/20 07/07/20 5-325] Omeprazole [PriLOSEC] 20 mg PO DAILY 04/18/20 07/07/20 Potassium Chloride ER [K-Dur 10] 10 meq PO TID 04/18/20 07/07/20 Thiamine [Vitamin B-1] 100 mg PO DAILY 04/18/20 07/07/20 hydrOXYzine pamoate [hydrOXYzine 25 mg PO TID 04/18/20 07/07/20 PAMOATE] Budesonide/Formoterol Fumarate 2 puff INHALATION RT-BID 06/30/20 07/07/20 [Symbicort 160-4.5 Mcg Inhaler] Butalb/APAP/Caff 50-325-40Mg 1 tab PO Q4H PRN 06/30/20 07/07/20 [Fioricet 50-325-40] Fluticasone Nasal [place] [Flonase 1 spray EA NOSTRIL DAILY PRN 06/30/20 07/07/20 Nasal [place]] Folic Acid 0.8 mg PO DAILY 06/30/20 07/07/20 Furosemide [Lasix] 20 mg PO DAILY 06/30/20 07/07/20 Mirtazapine 45 mg PO HS 06/30/20 07/07/20 SUMAtriptan SUCCINATE [Imitrex] 50 mg PO DAILY PRN 06/30/20 07/07/20 fentaNYL 75MCG/HR PATCH [Duragesic 1 patch TRANSDERM Q72H 06/30/20 07/07/20 75MCG/HR] Previous Rx's Medication Instructions Recorded Pantoprazole Sodium [Protonix] 40 mg PO BID 30 Days #60 tablet. 04/27/20 Amoxicillin/Potassium Clav 1 tab PO Q12HR 7 Days #2 tab 07/03/20 [Augmentin 875-125 Tablet] guaiFENesin [Mucinex] 600 mg PO Q12HR PRN tablet.er 07/03/20 Cephalexin [Keflex] 500 mg PO Q6HR #40 cap 08/19/20 Allergies Allergy/AdvReac Type Severity Reaction Status Date / Time denosumab [From Prolia] Allergy SEVERE Verified 08/19/20 17:48 CALCIUM LOSS DUST Allergy Itching Uncoded 08/19/20 17:48 MOLDS Allergy Itching Uncoded 08/19/20 17:48 Review of Systems ROS Statement: Those systems with pertinent positive or pertinent negative responses have been documented in the HPI. ROS Other: All systems not noted in ROS Statement are negative. 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 Fell in May 2019-FX HIP-LAID ON FLOOR FOR 3 DAYS hit back of head. States had short term memory problems until admit in March, discovered hemoglobin was low (anemia), when corrected memory has improved. History of Any Multi-Drug Resistant Organisms: None Reported Past Surgical History: Back Surgery, Bowel Resection Additional Past Surgical History / Comment(s): LOWER BACK SURGERY lamenectomy/d iscetomy then had a revison of that sx. 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, nasal sx d/t broken nose, colonoscopy/egd, PAIN CLINIC PROCEDURES Past Anesthesia/Blood Transfusion Reactions: No Reported Reaction Additional Past Anesthesia/Blood Transfusion Reaction / Comment(s): PT RECIEVED BLOOD TRANSFUSIONS AFTER STOMACH SURGERY Past Psychological History: Anxiety, Depression, Panic Disorder Smoking Status: Never smoker Past Alcohol Use History: None Reported Past Drug Use History: None Reported - Past Family History Father Family Medical History: Cancer, Coronary Artery Disease (CAD) Additional Family Medical History / Comment(s): FATHER HAD BLADDER AND KIDNEY CANCER. FATHER HAD TB WHEN HE WAS A CHILD .FATHER AT AGE 87. Mother Family Medical History: Cancer Additional Family Medical History / Comment(s): MOTHER AT AGE 58 OF OVARIAN CANCER. General Exam Limitations: no limitations General appearance: alert, in no apparent distress Head exam: Present: atraumatic, normocephalic, normal inspection Eye exam: Present: normal appearance, PERRL, EOMI. Absent: scleral icterus, conjunctival injection, periorbital swelling Pupils: Present: normal accommodation ENT exam: Present: normal exam, mucous membranes dry, mucous membranes moist Neck exam: Present: normal inspection, full ROM. Absent: tenderness, meningismus, lymphadenopathy, thyromegaly Respiratory exam: Present: wheezes. Absent: respiratory distress, chest wall tenderness, accessory muscle use, decreased breath sounds Cardiovascular Exam: Present: tachycardia. Absent: JVD GI/Abdominal exam: Present: soft, normal bowel sounds. Absent: mass (Pain patch to mid abdomen), pulsatile mass Extremities exam: Present: full ROM, normal capillary refill. Absent: tenderness, pedal edema, calf tenderness Back exam: Present: normal inspection, full ROM. Absent: tenderness, CVA tenderness (R), CVA tenderness (L) Neurological exam: Present: alert, oriented X3, CN II-XII intact Psychiatric exam: Present: normal affect, normal mood Skin exam: Present: warm, dry, intact, normal color. Absent: rash, cyanosis, diaphoretic, erythema, petechiae, pallor, mottled Course Vital Signs 08/19/20 08/19/20 08/19/20 17:45 19:55 20:01 Temperature 98.1 F Pulse Rate 112 H 98 100 Respiratory 18 Rate Blood Pressure 153/79 O2 Sat by Pulse 98 Oximetry Medical Decision Making - Medical Decision Making Patient's breathing has improved after albuterol treatment. There is a slight inspiratory wheeze on the right. KUB shows no sign of intestinal obstruction or pneumoperitoneum, there is no evidence of a mass. There is lumbar spine posterior fusion surgery noted. White blood cell count 10.2, patient is afebrile. Potassium is 2.9 was replaced with 40 mg of potassium chloride. Lactic acid is 1.2. Patient has chronic renal failure creatinine 1.57 which is consistent for her. There is an elevation in her AST, LT alk phos, amylase and lipase which is behind the patient. UA shows 20 wbc's and positive leukocytes will treat patient urinary tract infection. Discussed with Dr. Levin, will discharge patient home. Patient agreeable to this plan and states will follow- up with her primary care doctor Dr. Loya in [place]. - Lab Data Result diagrams: 08/19/20 Unknown 08/19/20 Unknown Lab Results 08/19/20 08/19/20 08/19/20 Range/Units 18:21 20:09 Unknown WBC 10.2 (3.8-10.6) k/uL RBC 4.08 (3.80-5.40) m/uL Hgb 11.6 (11.4-16.0) gm/dL Hct 37.8 (34.0-46.0) % MCV 92.6 (80.0-100.0) fL MCH 28.5 (25.0-35.0) pg MCHC 30.7 L (31.0-37.0) g/dL RDW 15.9 H (11.5-15.5) % Plt Count 528 H (150-450) k/uL MPV 6.6 Neutrophils % 74 % Lymphocytes % 14 % Monocytes % 6 % Eosinophils % 3 % Basophils % 1 % Neutrophils # 7.5 (1.3-7.7) k/uL Lymphocytes # 1.4 (1.0-4.8) k/uL Monocytes # 0.6 (0-1.0) k/uL Eosinophils # 0.4 (0-0.7) k/uL Basophils # 0.1 (0-0.2) k/uL Hypochromasia Slight PT (9.0-12.0) sec INR (<1.2) APTT (22.0-30.0) sec Sodium (137-145) mmol/L Potassium (3.5-5.1) mmol/L Chloride (98-107) mmol/L Carbon Dioxide (22-30) mmol/L Anion Gap mmol/L BUN (7-17) mg/dL Creatinine (0.52-1.04) mg/dL Est GFR (CKD-EPI)AfAm (>60 ml/min/1.73 sqM) Est GFR (CKD-EPI)NonAf (>60 ml/min/1.73 sqM) Glucose (74-99) mg/dL Plasma Lactic Acid Jonah 1.2 (0.7-2.0) mmol/L Calcium (8.4-10.2) mg/dL Total Bilirubin (0.2-1.3) mg/dL AST (14-36) U/L ALT (4-34) U/L Alkaline Phosphatase (38-126) U/L Troponin I (0.000-0.034) ng/mL Total Protein (6.3-8.2) g/dL Albumin (3.5-5.0) g/dL Amylase (30-110) U/L Lipase (23-300) U/L Urine Color Yellow Urine Appearance Clear (Clear) Urine pH 6.5 (5.0-8.0) Ur Specific [place] 1.019 (1.001-1.035) Urine Protein 1+ H (Negative) Urine Glucose (UA) Negative (Negative) Urine Ketones Negative (Negative) Urine Blood Negative (Negative) Urine Nitrite Negative (Negative) Urine Bilirubin Negative (Negative) Urine Urobilinogen <2.0 (<2.0) mg/dL Ur Leukocyte Esterase Large H (Negative) Urine RBC 2 (0-5) /hpf Urine WBC 29 H (0-5) /hpf Ur Squamous Epith Cells 2 (0-4) /hpf 08/19/20 08/19/20 08/19/20 Range/Units Unknown Unknown Unknown WBC (3.8-10.6) k/uL RBC (3.80-5.40) m/uL Hgb (11.4-16.0) gm/dL Hct (34.0-46.0) % MCV (80.0-100.0) fL MCH (25.0-35.0) pg MCHC (31.0-37.0) g/dL RDW (11.5-15.5) % Plt Count (150-450) k/uL MPV Neutrophils % % Lymphocytes % % Monocytes % % Eosinophils % % Basophils % % Neutrophils # (1.3-7.7) k/uL Lymphocytes # (1.0-4.8) k/uL Monocytes # (0-1.0) k/uL Eosinophils # (0-0.7) k/uL Basophils # (0-0.2) k/uL Hypochromasia PT 9.7 (9.0-12.0) sec INR 0.9 (<1.2) APTT 24.6 (22.0-30.0) sec Sodium 140 (137-145) mmol/L Potassium 2.9 L (3.5-5.1) mmol/L Chloride 107 (98-107) mmol/L Carbon Dioxide 21 L (22-30) mmol/L Anion Gap 12 mmol/L BUN 46 H (7-17) mg/dL Creatinine 1.57 H (0.52-1.04) mg/dL Est GFR (CKD-EPI)AfAm 37 (>60 ml/min/1.73 sqM) Est GFR (CKD-EPI)NonAf 33 (>60 ml/min/1.73 sqM) Glucose 94 (74-99) mg/dL Plasma Lactic Acid Jonah (0.7-2.0) mmol/L Calcium 9.2 (8.4-10.2) mg/dL Total Bilirubin 0.3 (0.2-1.3) mg/dL AST 134 H (14-36) U/L ALT 71 H (4-34) U/L Alkaline Phosphatase 420 H (38-126) U/L Troponin I <0.012 (0.000-0.034) ng/mL Total Protein 6.7 (6.3-8.2) g/dL Albumin 3.9 (3.5-5.0) g/dL Amylase 183 H (30-110) U/L Lipase 432 H (23-300) U/L Urine Color Urine Appearance (Clear) Urine pH (5.0-8.0) Ur Specific [place] (1.001-1.035) Urine Protein (Negative) Urine Glucose (UA) (Negative) Urine Ketones (Negative) Urine Blood (Negative) Urine Nitrite (Negative) Urine Bilirubin (Negative) Urine Urobilinogen (<2.0) mg/dL Ur Leukocyte Esterase (Negative) Urine RBC (0-5) /hpf Urine WBC (0-5) /hpf Ur Squamous Epith Cells (0-4) /hpf - EKG Data EKG shows normal: sinus rhythm, intervals (Ventricular rate of 98, P.12, QRS 0.76, QTC 0.464; normal sinus rhythm with no ectopy) Rate: normal Disposition Clinical Impression: UTI (urinary tract infection) Disposition: HOME SELF-CARE Condition: Good Additional Instructions: Take Medication as prescribed and follow up with your primary care doctor in 1 week Prescriptions: Cephalexin [Keflex] 500 mg PO Q6HR #40 cap Is patient prescribed a controlled substance at d/c from ED?: No Referrals: Ale Eli MD [Primary Care Provider] - 1-2 days Time of Disposition: 21:27
[2020-08-19 18:25] LABS: Basophils # (A) 0.1 k/uL (0-0.2); Basophils % (A) 1 %; Eosinophils # (A) 0.4 k/uL (0-0.7); Eosinophils % (A) 3 %; HCT 37.8 % (34.0-46.0); HGB 11.6 gm/dL (11.4-16.0); Hypochromasia Slight; Lymphocytes # (A) 1.4 k/uL (1.0-4.8); Lymphocytes % (A) 14 %; MCH 28.5 pg (25.0-35.0); MCHC 30.7 g/dL (31.0-37.0); MCV 92.6 fL (80.0-100.0); Mean Platelet Volume 6.6; Monocytes # (A) 0.6 k/uL (0-1.0); Monocytes % (A) 6 %; Neutrophils # (A) 7.5 k/uL (1.3-7.7); Neutrophils % (A) 74 %; Platelet Count 528 k/uL (150-450); RBC 4.08 m/uL (3.80-5.40); RDW 15.9 % (11.5-15.5); WBC 10.2 k/uL (3.8-10.6)
[2020-08-19 18:38] LABS: INR 0.9 (<1.2); Partial Thromboplastin Time 24.6 sec (22.0-30.0); Prothrombin Time 9.7 sec (9.0-12.0)
[2020-08-19 18:41] LABS: Albumin 3.9 g/dL (3.5-5.0); Calcium 9.2 mg/dL (8.4-10.2); Potassium 2.9 mmol/L (3.5-5.1); Total Bilirubin 0.3 mg/dL (0.2-1.3); Total Protein 6.7 g/dL (6.3-8.2)
--- NOTE | 2020-08-19 18:50 | XR ---
EXAMINATION TYPE: XR KUB DATE OF EXAM: 08/19/2020 COMPARISON: 04/07/2014 HISTORY: Abdominal pain TECHNIQUE: 2 views upright FINDINGS: There is no sign of intestinal obstruction or pneumoperitoneum. Fecal pattern is normal. Th ere is left hip prosthesis. There is no evidence of a mass. There are no pathologic calcifications ov er the kidneys. There is lower lumbar spine posterior fusion surgery. IMPRESSION: Nonacute abdomen. No adverse change compared to old exam.
[2020-08-19] MEDS ORDERED: POTASSIUM CHLORIDE ER 20 MEQ TAB.ER PO STA (19:08)
[2020-08-19] MEDS ORDERED: ALBUTEROL NEBULIZED 2.5 MG/3 ML INHALATION STA (19:13)
[2020-08-19] MEDS ORDERED: HYDROcodone/APAP 10-325MG 1 EACH TAB PO ONE (19:13)
[2020-08-19 20:30] LABS: Appearance,Urine Clear (Clear); Bilirubin,Urine Negative (Negative); Blood,Urine Negative (Negative); Color,Urine Yellow; Glucose,Urine (UA) Negative (Negative); Ketones,Urine Negative (Negative); Leukocyte Esterase,Urine Large (Negative); Nitrite,Urine Negative (Negative); PH, Urine 6.5 (5.0-8.0); Protein,Urine 1+ (Negative); RBC,Urine 2 /hpf (0-5); Specific Gravity,Urine 1.019 (1.001-1.035); Squamous Epithelial Cell,Urine 2 /hpf (0-4); Urobilinogen,Urine <2.0 mg/dL (<2.0); WBC,Urine 29 /hpf (0-5)
[2020-08-19 21:55] VITALS: BP 135/78; PULSE 95; RESP 16
== END 2020-08-19 21:55 | disposition home or self-care (01) ==
LOC: EC 17:06
DX: N39.0 Urinary tract infection, site not specified (principal); F41.9 Anxiety disorder, unspecified; F32.9 Major depressive disorder, single episode, unspecified; J45.909 Unspecified asthma, uncomplicated; K21.9 Gastro-esophageal reflux disease without esophagitis; Z86.718 Personal history of other venous thrombosis and embolism; Z86.73 Personal history of transient ischemic attack (TIA), and cerebral infarction without residual deficits; Z87.11 Personal history of peptic ulcer disease
CPT/HCPCS: 36415; 74018; 80053; 81001; 82150; 83605; 83690; 84484; 85025; 85610; 85730; 87086; 93005; 94640; 96361; 96374; 99285

== ENCOUNTER 2020-09-28 22:16 | Emergency (ER) | payer MEDICARE, OTHER ==
[2020-09-28 22:29] VITALS: TEMP 98.6
[2020-09-28] MEDS ORDERED: diphenhydrAMINE 50 MG/ML 1 ML VIAL IVP STA (22:58)
[2020-09-28] MEDS ORDERED: SODIUM CHLORIDE 0.9% 500 ML 500 ML IV ONE (22:58)
[2020-09-28] MEDS ORDERED: FAMOTIDINE 20 MG/2 ML VIAL IV STA (22:58)
[2020-09-28] MEDS ORDERED: methylPREDNISolone SOD SUCCI 125 MG/2 ML VIAL IV STA (22:59)
[2020-09-28 23:30] LABS: Anisocytosis Slight; Basophils # (A) 0.1 k/uL (0-0.2); Basophils % (A) 1 %; Eosinophils # (A) 0.7 k/uL (0-0.7); Eosinophils % (A) 6 %; HCT 30.5 % (34.0-46.0); HGB 9.8 gm/dL (11.4-16.0); Hypochromasia Moderate; Lymphocytes % (A) 18 %; MCH 28.1 pg (25.0-35.0); MCHC 32.2 g/dL (31.0-37.0); Mean Platelet Volume 7.2; Monocytes # (A) 0.7 k/uL (0-1.0); Monocytes % (A) 7 %; Neutrophils # (A) 7.5 k/uL (1.3-7.7); Neutrophils % (A) 67 %; Platelet Count 348 k/uL (150-450); RBC 3.49 m/uL (3.80-5.40); RDW 16.2 % (11.5-15.5); WBC 11.2 k/uL (3.8-10.6)
[2020-09-28 23:42] LABS: Albumin 3.8 g/dL (3.5-5.0); Potassium 2.9 mmol/L (3.5-5.1); Total Bilirubin 0.2 mg/dL (0.2-1.3); Total Protein 6.6 g/dL (6.3-8.2)
[2020-09-28 23:50] LABS: MCV 87.4 fL (80.0-100.0)
[2020-09-29] MEDS ORDERED: POTASSIUM CHLORIDE ER 20 MEQ TAB.ER PO STA (00:12)
--- NOTE | 2020-09-29 00:45 | ED ---
Skin/Abscess/FB HPI - General Chief complaint: Skin/Abscess/Foreign Body Stated complaint: Poss Allergic Reaction Time Seen by Provider: 09/28/20 22:36 Source: patient Mode of arrival: ambulatory Limitations: no limitations - History of Present Illness Initial comments: 75 year-old female patient with history of gastrectomy and frequent aspiration pneumonia currently receiving TPN presents to the emergency department today for evaluation of generalized itching and rash. Patient states that symptoms started earlier today and has been worsening. States she does have one small blister on the left lower leg. States she is unable to stop scratching. Denies any exposure to new substances. States she did run out of her Vistaril which generally helps with her itching. Denies fever or chills. Denies any abdominal pain, nausea, or vomiting. Denies any lip, tongue, or throat swelling. Denies trouble breathing. Denies taking any medication for symptoms. Patient denies any recent cough, shortness of breath, chest pain, diarrhea, constipation, back pain, numbness, tingling, dizziness, weakness, hematuria, dysuria, urinary urgency, urinary frequency, headache, visual changes, or any other complaints. - Related Data Home Medications Medication Instructions Recorded Confirmed DULoxetine HCL [Cymbalta] 60 mg PO DAILY 09/17/13 07/07/20 Ferrous Sulfate [Iron (65 MG 325 mg PO BID 11/06/15 07/07/20 Elemental)] buPROPion HCL [Wellbutrin XL] 300 mg PO DAILY 11/06/15 07/07/20 Levocetirizine Dihydrochloride 5 mg PO HS 05/31/17 07/07/20 [Xyzal] Levothyroxine Sodium [Synthroid] 88 mcg PO DAILY 06/07/19 07/07/20 calcitrioL [Calcitriol] 1 mcg PO MOWEFR 06/07/19 07/07/20 Albuterol Inhaler [Ventolin Hfa 1 puff INHALATION RT-Q6H PRN 10/05/19 07/07/20 Inhaler] busPIRone HCL [Buspar] 30 mg PO BID 04/14/20 07/07/20 Cholestyramine (with Sugar) 4 gm PO BID 04/18/20 07/07/20 [Cholestyramine Powder] HYDROcodone/APAP 5-325MG [[place] 1 tab PO Q6H PRN 04/18/20 07/07/20 5-325] Omeprazole [PriLOSEC] 20 mg PO DAILY 04/18/20 07/07/20 Potassium Chloride ER [K-Dur 10] 10 meq PO TID 04/18/20 07/07/20 Thiamine [Vitamin B-1] 100 mg PO DAILY 04/18/20 07/07/20 hydrOXYzine pamoate [hydrOXYzine 25 mg PO TID 04/18/20 07/07/20 PAMOATE] Budesonide/Formoterol Fumarate 2 puff INHALATION RT-BID 06/30/20 07/07/20 [Symbicort 160-4.5 Mcg Inhaler] Butalb/APAP/Caff 50-325-40Mg 1 tab PO Q4H PRN 06/30/20 07/07/20 [Fioricet 50-325-40] Fluticasone Nasal [place] [Flonase 1 spray EA NOSTRIL DAILY PRN 06/30/20 07/07/20 Nasal [place]] Folic Acid 0.8 mg PO DAILY 06/30/20 07/07/20 Furosemide [Lasix] 20 mg PO DAILY 06/30/20 07/07/20 Mirtazapine 45 mg PO HS 06/30/20 07/07/20 SUMAtriptan SUCCINATE [Imitrex] 50 mg PO DAILY PRN 06/30/20 07/07/20 fentaNYL 75MCG/HR PATCH [Duragesic 1 patch TRANSDERM Q72H 06/30/20 07/07/20 75MCG/HR] Previous Rx's Medication Instructions Recorded Pantoprazole Sodium [Protonix] 40 mg PO BID 30 Days #60 tablet.dr 04/27/20 Amoxicillin/Potassium Clav 1 tab PO Q12HR 7 Days #2 tab 07/03/20 [Augmentin 875-125 Tablet] guaiFENesin [Mucinex] 600 mg PO Q12HR PRN tablet.er 07/03/20 Cephalexin [Keflex] 500 mg PO Q6HR #40 cap 08/19/20 Allergies Allergy/AdvReac Type Severity Reaction Status Date / Time denosumab [From Prolia] Allergy SEVERE Verified 09/28/20 22:29 CALCIUM LOSS DUST Allergy Itching Uncoded 09/28/20 22:29 MOLDS Allergy Itching Uncoded 09/28/20 22:29 Review of Systems ROS Statement: Those systems with pertinent positive or pertinent negative responses have been documented in the HPI. ROS Other: All systems not noted in ROS Statement are negative. 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 History of Any Multi-Drug Resistant Organisms: None Reported Past Surgical History: Back Surgery, Bowel Resection Additional Past Surgical History / Comment(s): LOWER BACK SURGERY lamenectomy/discetomy then had a revison of that sx. 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, nasal sx d/t broken nose, colonoscopy/egd, PAIN CLINIC PROCEDURES Past Anesthesia/Blood Transfusion Reactions: No Reported Reaction Additional Past Anesthesia/Blood Transfusion Reaction / Comment(s): PT RECIEVED BLOOD TRANSFUSIONS AFTER STOMACH SURGERY Past Psychological History: Anxiety, Depression, Panic Disorder Smoking Status: Never smoker Past Alcohol Use History: None Reported Past Drug Use History: None Reported - Past Family History Father Family Medical History: Cancer, Coronary Artery Disease (CAD) Additional Family Medical History / Comment(s): FATHER HAD BLADDER AND KIDNEY CANCER. FATHER HAD TB WHEN HE WAS A CHILD .FATHER AT AGE 87. Mother Family Medical History: Cancer Additional Family Medical History / Comment(s): MOTHER AT AGE 58 OF OVARIAN CANCER. General Exam Limitations: no limitations General appearance: alert, in no apparent distress Eye exam: Present: normal appearance, PERRL, EOMI. Absent: scleral icterus, con junctival injection, periorbital swelling ENT exam: Present: normal exam, normal oropharynx, mucous membranes moist Respiratory exam: Present: normal lung sounds bilaterally. Absent: respiratory distress, wheezes, rales, rhonchi, stridor Cardiovascular Exam: Present: regular rate, normal rhythm, normal heart sounds. Absent: systolic murmur, diastolic murmur, rubs, gallop, clicks GI/Abdominal exam: Present: soft, normal bowel sounds. Absent: distended, tenderness, guarding, rebound, rigid Neurological exam: Present: alert, oriented X3, CN II-XII intact Psychiatric exam: Present: normal affect, normal mood Skin exam: Present: warm, dry, intact, normal color, rash (Generalized raised, erythematous, left medial calf vesicle. Lesions are non-petechial, non purpuric. ) Course Vital Signs 09/28/20 09/29/20 09/29/20 22:23 00:05 01:15 Temperature 98.6 F Pulse Rate 84 70 75 Respiratory 16 20 18 Rate Blood Pressure 142/70 120/70 127/73 O2 Sat by Pulse 98 97 97 Oximetry Medical Decision Making - Medical Decision Making 75-year-old female patient presents to the emergency department today for evaluation of generalized rash and itching. Physical examination did reveal red raised rash over her body. There is one small vesicle noted to the left medial calf. Patient was given IV Solu-Medrol, Benadryl, Pepcid. Also given fioricet for headache. Labs reviewed and showed decreased potassium, this was replaced. Upon reevaluation states she is feeling better. To be discharged follow-up with her primary care physician for recheck in 1-2 days. She is instructed to contact her specialist at [facility] regarding her TPN. Return parameters were discussed in detail. She verbalizes understanding and agrees with this plan. Case discussed with my attending Dr. Levin. - Lab Data Result diagrams: 09/28/20 23:08 09/28/20 23:08 Lab Results 09/28/20 09/28/20 09/28/20 Range/Units 23:08 23:08 23:08 WBC 11.2 H (3.8-10.6) k/uL RBC 3.49 L (3.80-5.40) m/uL Hgb 9.8 L (11.4-16.0) gm/dL Hct 30.5 L (34.0-46.0) % MCV 87.4 D (80.0-100.0) fL MCH 28.1 (25.0-35.0) pg MCHC 32.2 (31.0-37.0) g/dL RDW 16.2 H (11.5-15.5) % Plt Count 348 (150-450) k/uL MPV 7.2 Neutrophils % 67 % Lymphocytes % 18 % Monocytes % 7 % Eosinophils % 6 % Basophils % 1 % Neutrophils # 7.5 (1.3-7.7) k/uL Lymphocytes # 2.0 (1.0-4.8) k/uL Monocytes # 0.7 (0-1.0) k/uL Eosinophils # 0.7 (0-0.7) k/uL Basophils # 0.1 (0-0.2) k/uL Hypochromasia Moderate Anisocytosis Slight Sodium 143 (137-145) mmol/L Potassium 2.9 L (3.5-5.1) mmol/L Chloride 111 H (98-107) mmol/L Carbon Dioxide 21 L (22-30) mmol/L Anion Gap 11 mmol/L BUN 46 H (7-17) mg/dL Creatinine 1.75 H (0.52-1.04) mg/dL Est GFR (CKD-EPI)AfAm 33 (>60 ml/min/1.73 sqM) Est GFR (CKD-EPI)NonAf 28 (>60 ml/min/1.73 sqM) Glucose 84 (74-99) mg/dL Calcium 9.0 (8.4-10.2) mg/dL Magnesium 2.1 (1.6-2.3) mg/dL Total Bilirubin 0.2 (0.2-1.3) mg/dL AST 38 H (14-36) U/L ALT 36 H (4-34) U/L Alkaline Phosphatase 288 H (38-126) U/L Total Protein 6.6 (6.3-8.2) g/dL Albumin 3.8 (3.5-5.0) g/dL Disposition Clinical Impression: Rash, Skin pruritus Disposition: HOME SELF-CARE Condition: Good Instructions (If sedation given, give patient instructions): Acute Rash (ED) Additional Instructions: Call [facility] tomorrow for further instructions. Return to the emergency department for any new, worsening, or concerning symptoms. Is patient prescribed a controlled substance at d/c from ED?: No Referrals: Ale Eli MD [Primary Care Provider] - 1-2 days Time of Disposition: 00:45
[2020-09-29] MEDS ORDERED: BUTA/APAP/CAF/COD 50-325-40-30 CAP PO STA (00:54)
[2020-09-29 01:17] VITALS: BP 127/73; PULSE 75; RESP 18
== END 2020-09-29 01:16 | disposition home or self-care (01) ==
LOC: EC 22:16
DX: L29.9 Pruritus, unspecified (principal); J45.909 Unspecified asthma, uncomplicated; K21.9 Gastro-esophageal reflux disease without esophagitis; G43.909 Migraine, unspecified, not intractable, without status migrainosus; M19.90 Unspecified osteoarthritis, unspecified site; Z79.899 Other long term (current) drug therapy; Z88.8 Allergy status to other drugs, medicaments and biological substances; Z91.048 Other nonmedicinal substance allergy status; Z79.51 Long term (current) use of inhaled steroids
CPT/HCPCS: 96374; 96375; 99283; 36415; 84591; 80053; 83735; 85025; J1200; J2930

== ENCOUNTER 2020-09-30 13:58 | Emergency (ER) | payer MEDICARE, OTHER ==
[2020-09-30 14:20] VITALS: BP 141/87; PULSE 112; RESP 18; TEMP 97.9
--- NOTE | 2020-09-30 15:05 | ED ---
General Adult HPI - General Chief complaint: Recheck/Abnormal Lab/Rx Stated complaint: medications Time Seen by Provider: 09/30/20 14:34 Source: patient Mode of arrival: ambulatory Limitations: no limitations - History of Present Illness Initial comments: 75-year-old female presents to the emergency room for medication refill. Patient reports that she has chronic pain. She reports she needs her Schofield and also her Wellbutrin which she has not had for the past 2 days. Patient states today her pain is generalized in nature and consistent with her chronic pain syndrome.Patient has no other complaints at this time including shortness of breath, chest pain, abdominal pain, nausea or vomiting, headache, or visual changes. - Related Data Home Medications Medication Instructions Recorded Confirmed DULoxetine HCL [Cymbalta] 60 mg PO DAILY 09/17/13 07/07/20 Ferrous Sulfate [Iron (65 MG 325 mg PO BID 11/06/15 07/07/20 Elemental)] buPROPion HCL [Wellbutrin XL] 300 mg PO DAILY 11/06/15 07/07/20 Levocetirizine Dihydrochloride 5 mg PO HS 05/31/17 07/07/20 [Xyzal] Levothyroxine Sodium [Synthroid] 88 mcg PO DAILY 06/07/19 07/07/20 calcitrioL [Calcitriol] 1 mcg PO MOWEFR 06/07/19 07/07/20 Albuterol Inhaler [Ventolin Hfa 1 puff INHALATION RT-Q6H PRN 10/05/19 07/07/20 Inhaler] busPIRone HCL [Buspar] 30 mg PO BID 04/14/20 07/07/20 Cholestyramine (with Sugar) 4 gm PO BID 04/18/20 07/07/20 [Cholestyramine Powder] HYDROcodone/APAP 5-325MG [[place] 1 tab PO Q6H PRN 04/18/20 07/07/20 5-325] Omeprazole [PriLOSEC] 20 mg PO DAILY 04/18/20 07/07/20 Potassium Chloride ER [K-Dur 10] 10 meq PO TID 04/18/20 07/07/20 Thiamine [Vitamin B-1] 100 mg PO DAILY 04/18/20 07/07/20 hydrOXYzine pamoate [hydrOXYzine 25 mg PO TID 04/18/20 07/07/20 PAMOATE] Budesonide/Formoterol Fumarate 2 puff INHALATION RT-BID 06/30/20 07/07/20 [Symbicort 160-4.5 Mcg Inhaler] Butalb/APAP/Caff 50-325-40Mg 1 tab PO Q4H PRN 06/30/20 07/07/20 [Fioricet 50-325-40] Fluticasone Nasal [place] [Flonase 1 spray EA NOSTRIL DAILY PRN 06/30/20 07/07/20 Nasal [place]] Folic Acid 0.8 mg PO DAILY 06/30/20 07/07/20 Furosemide [Lasix] 20 mg PO DAILY 06/30/20 07/07/20 Mirtazapine 45 mg PO HS 06/30/20 07/07/20 SUMAtriptan SUCCINATE [Imitrex] 50 mg PO DAILY PRN 06/30/20 07/07/20 fentaNYL 75MCG/HR PATCH [Duragesic 1 patch TRANSDERM Q72H 06/30/20 07/07/20 75MCG/HR] Previous Rx's Medication Instructions Recorded Pantoprazole Sodium [Protonix] 40 mg PO BID 30 Days #60 tablet. 04/27/20 Amoxicillin/Potassium Clav 1 tab PO Q12HR 7 Days #2 tab 07/03/20 [Augmentin 875-125 Tablet] guaiFENesin [Mucinex] 600 mg PO Q12HR PRN tablet.er 07/03/20 Cephalexin [Keflex] 500 mg PO Q6HR #40 cap 08/19/20 buPROPion XL [Wellbutrin Xl] 300 mg PO DAILY #3 tab.er.24h 09/30/20 Allergies Allergy/AdvReac Type Severity Reaction Status Date / Time denosumab [From Prolia] Allergy SEVERE Verified 09/30/20 14:20 CALCIUM LOSS DUST Allergy Itching Uncoded 09/30/20 14:20 MOLDS Allergy Itching Uncoded 09/30/20 14:20 Review of Systems ROS Statement: Those systems with pertinent positive or pertinent negative responses have been documented in the HPI. ROS Other: All systems not noted in ROS Statement are negative. 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 History of Any Multi-Drug Resistant Organisms: None Reported Past Surgical History: Back Surgery, Bowel Resection Additional Past Surgical History / Comment(s): LOWER BACK SURGERY lamenectomy/discetomy then had a revison of that sx. 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, nasal sx d/t broken nose, colonoscopy/egd, PAIN CLINIC PROCEDURES Past Anesthesia/Blood Transfusion Reactions: No Reported Reaction Additional Past Anesthesia/Blood Transfusion Reaction / Comment(s): PT RECIEVED BLOOD TRANSFUSIONS AFTER STOMACH SURGERY Past Psychological History: Anxiety, Depression, Panic Disorder Smoking Status: Never smoker Past Alcohol Use History: None Reported Past Drug Use History: None Reported - Past Family History Father Family Medical History: Cancer, Coronary Artery Disease (CAD) Additional Family Medical History / Comment(s): FATHER HAD BLADDER AND KIDNEY CANCER. FATHER HAD TB WHEN HE WAS A CHILD .FATHER AT AGE 87. Mother Family Medical History: Cancer Additional Family Medical History / Comment(s): MOTHER AT AGE 58 OF OVARIAN CANCER. General Exam Limitations: no limitations General appearance: alert, in no apparent distress Head exam: Present: atraumatic, normocephalic, normal inspection Eye exam: Present: normal appearance, PERRL, EOMI. Absent: scleral icterus ENT exam: Present: normal exam, mucous membranes moist Neck exam: Present: normal inspection, full ROM. Absent: tenderness Respiratory exam: Present: normal lung sounds bilaterally. Absent: respiratory distress, wheezes Cardiovascular Exam: Present: regular rate, normal rhythm, normal heart sounds GI/Abdominal exam: Present: soft, normal bowel sounds. Absent: distended, tenderness, guarding, rebound, rigid Course Vital Signs 09/30/20 14:17 Temperature 97.9 F Pulse Rate 112 H Respiratory 18 Rate Blood Pressure 141/87 O2 Sat by Pulse 98 Oximetry Medical Decision Making - Medical Decision Making MAPS was performed on patient which demonstrated that patient had run out of her pain medication early. Therefore I could not refill her Schofield. However I did offer to give her one here which she did accept this. I did offer to refill her Wellbutrin until her appointment on Thursday as well. She will follow-up with her doctor. She will return here for any worsening symptoms. Disposition Clinical Impression: Medication refill Disposition: HOME SELF-CARE Condition: Good Instructions (If sedation given, give patient instructions): Medicine Refill (ED) Additional Instructions: Please follow-up with your doctor for further refills. Return to the emergency room for any worsening symptoms. Prescriptions: buPROPion XL [Wellbutrin Xl] 300 mg PO DAILY #3 tab.er.24h Is patient prescribed a controlled substance at d/c from ED?: No Referrals: Ale Eli MD [Primary Care Provider] - 1-2 days Time of Disposition: 15:04
[2020-09-30] MEDS ORDERED: HYDROcodone/APAP 5-325MG 1 EACH TAB PO STA (15:08)
[2020-09-30] MEDS ORDERED: buPROPion XL 300 MG TAB.ER.24H PO STA (15:17)
== END 2020-09-30 15:33 | disposition home or self-care (01) ==
LOC: EC 13:58
DX: G89.29 Other chronic pain (principal); J45.909 Unspecified asthma, uncomplicated; K21.9 Gastro-esophageal reflux disease without esophagitis; G43.909 Migraine, unspecified, not intractable, without status migrainosus; Z76.0 Encounter for issue of repeat prescription; Z88.8 Allergy status to other drugs, medicaments and biological substances; Z91.048 Other nonmedicinal substance allergy status; Z79.899 Other long term (current) drug therapy; Z79.51 Long term (current) use of inhaled steroids
CPT/HCPCS: 99282

== ENCOUNTER 2020-10-03 10:51 | Emergency (ER) | payer MEDICARE, OTHER ==
[2020-10-03 11:21] VITALS: BP 139/75; PULSE 99; RESP 20; TEMP 97.7
--- NOTE | 2020-10-03 11:37 | ED ---
General Adult HPI - General Chief complaint: Recheck/Abnormal Lab/Rx Stated complaint: picc line problem Time Seen by Provider: 10/03/20 11:26 Source: patient, RN notes reviewed Mode of arrival: wheelchair Limitations: no limitations - History of Present Illness Initial comments: 75-year-old female presents emergency Department with chief complaint of needing a PICC line. Patient receives TPN nightly. Patient states her PICC line fell out she was instructed to come immediately to hospital for placement. She has a scheduled appointment. Patient offers no other complaints no chest pain or shortness breath on pain no bleeding. - Related Data Home Medications Medication Instructions Recorded Confirmed DULoxetine HCL [Cymbalta] 60 mg PO DAILY 09/17/13 07/07/20 Ferrous Sulfate [Iron (65 MG 325 mg PO BID 11/06/15 07/07/20 Elemental)] buPROPion HCL [Wellbutrin XL] 300 mg PO DAILY 11/06/15 07/07/20 Levocetirizine Dihydrochloride 5 mg PO HS 05/31/17 07/07/20 [Xyzal] Levothyroxine Sodium [Synthroid] 88 mcg PO DAILY 06/07/19 07/07/20 calcitrioL [Calcitriol] 1 mcg PO MOWEFR 06/07/19 07/07/20 Albuterol Inhaler [Ventolin Hfa 1 puff INHALATION RT-Q6H PRN 10/05/19 07/07/20 Inhaler] busPIRone HCL [Buspar] 30 mg PO BID 04/14/20 07/07/20 Cholestyramine (with Sugar) 4 gm PO BID 04/18/20 07/07/20 [Cholestyramine Powder] HYDROcodone/APAP 5-325MG [[place] 1 tab PO Q6H PRN 04/18/20 07/07/20 5-325] Omeprazole [PriLOSEC] 20 mg PO DAILY 04/18/20 07/07/20 Potassium Chloride ER [K-Dur 10] 10 meq PO TID 04/18/20 07/07/20 Thiamine [Vitamin B-1] 100 mg PO DAILY 04/18/20 07/07/20 hydrOXYzine pamoate [hydrOXYzine 25 mg PO TID 04/18/20 07/07/20 PAMOATE] Budesonide/Formoterol Fumarate 2 puff INHALATION RT-BID 06/30/20 07/07/20 [Symbicort 160-4.5 Mcg Inhaler] Butalb/APAP/Caff 50-325-40Mg 1 tab PO Q4H PRN 06/30/20 07/07/20 [Fioricet 50-325-40] Fluticasone Nasal [place] [Flonase 1 spray EA NOSTRIL DAILY PRN 06/30/20 07/07/20 Nasal [place]] Folic Acid 0.8 mg PO DAILY 06/30/20 07/07/20 Furosemide [Lasix] 20 mg PO DAILY 06/30/20 07/07/20 Mirtazapine 45 mg PO HS 06/30/20 07/07/20 SUMAtriptan SUCCINATE [Imitrex] 50 mg PO DAILY PRN 06/30/20 07/07/20 fentaNYL 75MCG/HR PATCH [Duragesic 1 patch TRANSDERM Q72H 06/30/20 07/07/20 75MCG/HR] Previous Rx's Medication Instructions Recorded Pantoprazole Sodium [Protonix] 40 mg PO BID 30 Days #60 tablet.dr 04/27/20 Amoxicillin/Potassium Clav 1 tab PO Q12HR 7 Days #2 tab 07/03/20 [Augmentin 875-125 Tablet] guaiFENesin [Mucinex] 600 mg PO Q12HR PRN tablet.er 07/03/20 Cephalexin [Keflex] 500 mg PO Q6HR #40 cap 08/19/20 buPROPion XL [Wellbutrin Xl] 300 mg PO DAILY #3 tab.er.24h 09/30/20 Allergies Allergy/AdvReac Type Severity Reaction Status Date / Time denosumab [From Prolia] Allergy SEVERE Verified 10/03/20 11:21 CALCIUM LOSS DUST Allergy Itching Uncoded 10/03/20 11:21 MOLDS Allergy Itching Uncoded 10/03/20 11:21 Review of Systems ROS Statement: Those systems with pertinent positive or pertinent negative responses have been documented in the HPI. ROS Other: All systems not noted in ROS Statement are negative. 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 History of Any Multi-Drug Resistant Organisms: None Reported Past Surgical History: Back Surgery, Bowel Resection Additional Past Surgical History / Comment(s): LOWER BACK SURGERY lamenectomy/discetomy then had a revison of that sx. 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, nasal sx d/t broken nose, colonoscopy/egd, PAIN CLINIC PROCEDURES Past Anesthesia/Blood Transfusion Reactions: No Reported Reaction Additional Past Anesthesia/Blood Transfusion Reaction / Comment(s): PT RECIEVED BLOOD TRANSFUSIONS AFTER STOMACH SURGERY Past Psychological History: Anxiety, Depression, Panic Disorder Smoking Status: Never smoker Past Alcohol Use History: None Reported Past Drug Use History: None Reported - Past Family History Father Family Medical History: Cancer, Coronary Artery Disease (CAD) Additional Family Medical History / Comment(s): FATHER HAD BLADDER AND KIDNEY CANCER. FATHER HAD TB WHEN HE WAS A CHILD .FATHER AT AGE 87. Mother Family Medical History: Cancer Additional Family Medical History / Comment(s): MOTHER AT AGE 58 OF OVARIAN CANCER. General Exam Limitations: no limitations General appearance: alert, in no apparent distress Head exam: Present: atraumatic, normocephalic, normal inspection Respiratory exam: Present: normal lung sounds bilaterally. Absent: respiratory distress, wheezes, rales, rhonchi, stridor Cardiovascular Exam: Present: regular rate, normal rhythm, normal heart sounds. Absent: systolic murmur, diastolic murmur, rubs, gallop, clicks GI/Abdominal exam: Present: soft, normal bowel sounds. Absent: distended, tenderness, guarding, rebound, rigid Course Vital Signs 10/03/20 11:17 Temperature 97.7 F Pulse Rate 99 Respiratory 20 Rate Blood Pressure 139/75 O2 Sat by Pulse 98 Oximetry Medical Decision Making - Medical Decision Making Patient sent to interventional radiology for PICC line placement Disposition Clinical Impression: S/P PICC central line placement Disposition: HOME SELF-CARE Condition: Stable Instructions (If sedation given, give patient instructions): Peripherally Inserted Central Catheters and Midline Catheters in... (DC) Is patient prescribed a controlled substance at d/c from ED?: No Referrals: Ale Eli MD [Primary Care Provider] - 1-2 days Time of Disposition: 11:36
== END 2020-10-03 12:13 | disposition home or self-care (01) ==
LOC: EC 10:51
DX: Z45.2 Encounter for adjustment and management of vascular access device (principal); J45.909 Unspecified asthma, uncomplicated; K21.9 Gastro-esophageal reflux disease without esophagitis; F32.9 Major depressive disorder, single episode, unspecified; F41.9 Anxiety disorder, unspecified; G43.909 Migraine, unspecified, not intractable, without status migrainosus; Z86.718 Personal history of other venous thrombosis and embolism; Z86.73 Personal history of transient ischemic attack (TIA), and cerebral infarction without residual deficits; Z87.11 Personal history of peptic ulcer disease; Z79.51 Long term (current) use of inhaled steroids; Z79.899 Other long term (current) drug therapy
CPT/HCPCS: 99283

== ENCOUNTER 2020-10-03 12:10 | Day surgery (SDC) | payer MEDICARE, OTHER ==
[2020-10-03 12:45] VITALS: BP 144/67; PULSE 87; RESP 16; TEMP 98.4
[2020-10-03] MEDS ORDERED: LIDOCAINE 1% INJ 10MG/ML (20 ML MDV) SQ ONE (13:13)
--- NOTE | 2020-10-03 15:40 | IR ---
EXAMINATION TYPE: IR cvc insert >=5 years DATE OF EXAM: 10/03/2020 COMPARISON: NONE CLINICAL HISTORY:Needs long-term intravenous access for total parenteral nutrition. PROCEDURE: Hand hygiene obtained with soap and water and alcohol-based hand rub. After informed consent, the skin overlying the right brachial vein was localized with ultrasound and noted to be compressible and patent. An ultrasound image was obtained and submitted on the patient's chart. The overlying skin was prepped and draped and Lidocaine was used for local anesthesia. A sk in justyn was made with a scalpel. Access was gained to the vein under ultrasound guidance with a 21 g auge needle and a 0.018 inch wire was advanced. Access site was dilated with Peel-Away sheath and ca theter tailored to the appropriate length and advanced such that the distal tip is at the cavoatrial junction. Spot image was obtained verifying placement. Catheter was fixed to the skin and a sterile dressing was placed following hemostasis. Catheter was aspirated and flushed with saline. Patient was discharged in stable condition without complication.Maximal barrier technique is utilized. Ultra sound image is documented on the chart. Ultrasound used with sterile technique. Fluoro time and fluoroscopic images submitted to document procedure: 1 minute fluoroscopy time, 392 i ntraoperative C-arm images document the procedure IMPRESSION: STATUS POST ULTRASOUND AND FLUOROSCOPIC GUIDED PICC LINE PLACEMENT, READY FOR USE. THIS PROCEDURE WAS PERFORMED BY THE UNDERSIGNED.
== END 2020-10-03 13:36 | disposition home or self-care (01) ==
LOC: CATHCVL 12:10
PROVIDERS: ATTEND Radiology Diagnostic Radiology
DX: K22.8 Other specified diseases of esophagus (principal); B37.81 Candidal esophagitis; E43 Unspecified severe protein-calorie malnutrition; J44.9 Chronic obstructive pulmonary disease, unspecified; K21.9 Gastro-esophageal reflux disease without esophagitis; E03.9 Hypothyroidism, unspecified; Z20.822 Contact with and (suspected) exposure to COVID-19; R63.4 Abnormal weight loss; Z68.1 Body mass index [BMI] 19.9 or less, adult; N18.30 Chronic kidney disease, stage 3 unspecified; R41.3 Other amnesia; G89.29 Other chronic pain; M54.9 Dorsalgia, unspecified; F32.9 Major depressive disorder, single episode, unspecified; F41.9 Anxiety disorder, unspecified; R51.9 Headache, unspecified; D64.9 Anemia, unspecified; Z86.718 Personal history of other venous thrombosis and embolism; Z90.3 Acquired absence of stomach [part of]; Z87.19 Personal history of other diseases of the digestive system; K91.1 Postgastric surgery syndromes; Z87.01 Personal history of pneumonia (recurrent)
CPT/HCPCS: 36573; 87635; C1751; C1769; J2001

== ENCOUNTER 2020-10-05 16:22 | Emergency (ER) | payer MEDICARE, OTHER ==
[2020-10-05 16:36] VITALS: BP 132/65; TEMP 98.1
[2020-10-05 17:16] LABS: Appearance,Urine Cloudy (Clear); Bacteria,Urine Occasional /hpf; Bilirubin,Urine Negative (Negative); Blood,Urine Trace (Negative); Color,Urine Yellow; Glucose,Urine (UA) Negative (Negative); Hyaline Casts,Urine 1 /lpf (0-2); Ketones,Urine Negative (Negative); Leukocyte Esterase,Urine Large (Negative); Mucus,Urine Rare /hpf; Nitrite,Urine Negative (Negative); Protein,Urine 1+ (Negative); RBC,Urine 1 /hpf (0-5); Squamous Epithelial Cell,Urine 1 /hpf (0-4); Urobilinogen,Urine <2.0 mg/dL (<2.0); WBC,Urine >182 /hpf (0-5)
[2020-10-05 17:35] VITALS: PULSE 96; RESP 18
[2020-10-05] MEDS ORDERED: CEPHALEXIN 500MG STARTER PACK 4 CAP BTL PO STA (17:53)
--- NOTE | 2020-10-05 17:58 | ED ---
General Adult HPI - General Chief complaint: Urogenital Stated complaint: UTI Time Seen by Provider: 10/05/20 16:33 Source: patient Mode of arrival: ambulatory Limitations: no limitations - History of Present Illness Initial comments: 75-year-old female with a past history of asthma, DVT, GERD presents to the emergency room for a chief complaint of dysuria. Patient reports that for the past day she has had a burning with urination. Patient reports that she also has urinary urgency and frequency. Patient believes she has a urinary tract infection. Patient states she would have seen her doctor but she is out of town and did not want to wait until Thursday. Patient denies any upper back pain. Denies fevers. Denies nausea or vomiting.Patient has no other complaints at this time including shortness of breath, chest pain, abdominal pain, nausea or vomiting, headache, or visual changes. - Related Data Home Medications Medication Instructions Recorded Confirmed DULoxetine HCL [Cymbalta] 60 mg PO DAILY 09/17/13 10/03/20 Ferrous Sulfate [Iron (65 MG 325 mg PO BID 11/06/15 10/03/20 Elemental)] Levocetirizine Dihydrochloride 5 mg PO HS 05/31/17 10/03/20 [Xyzal] Levothyroxine Sodium [Synthroid] 88 mcg PO DAILY 06/07/19 10/03/20 calcitrioL [Calcitriol] 1 mcg PO MOWEFR 06/07/19 10/03/20 Albuterol Inhaler [Ventolin Hfa 1 puff INHALATION RT-Q6H PRN 10/05/19 10/03/20 Inhaler] busPIRone HCL [Buspar] 30 mg PO BID 04/14/20 10/03/20 Cholestyramine (with Sugar) 4 gm PO BID 04/18/20 10/03/20 [Cholestyramine Powder] HYDROcodone/APAP 5-325MG [[place] 1 tab PO Q6H PRN 04/18/20 10/03/20 5-325] Omeprazole [PriLOSEC] 20 mg PO DAILY 04/18/20 10/03/20 Potassium Chloride ER [K-Dur 10] 10 meq PO TID 04/18/20 10/03/20 Thiamine [Vitamin B-1] 100 mg PO DAILY 04/18/20 10/03/20 hydrOXYzine pamoate [hydrOXYzine 25 mg PO TID 04/18/20 10/03/20 PAMOATE] Budesonide/Formoterol Fumarate 2 puff INHALATION RT-BID 06/30/20 10/03/20 [Symbicort 160-4.5 Mcg Inhaler] Butalb/APAP/Caff 50-325-40Mg 1 tab PO Q4H PRN 06/30/20 10/03/20 [Fioricet 50-325-40] Fluticasone Nasal [place] [Flonase 1 spray EA NOSTRIL DAILY PRN 06/30/20 10/03/20 Nasal [place]] Folic Acid 0.8 mg PO DAILY 06/30/20 10/03/20 Furosemide [Lasix] 20 mg PO DAILY 06/30/20 10/03/20 Mirtazapine 45 mg PO HS 06/30/20 10/03/20 SUMAtriptan SUCCINATE [Imitrex] 50 mg PO DAILY PRN 06/30/20 10/03/20 fentaNYL 75MCG/HR PATCH [Duragesic 1 patch TRANSDERM Q72H 06/30/20 10/03/20 75MCG/HR] Previous Rx's Medication Instructions Recorded Pantoprazole Sodium [Protonix] 40 mg PO BID 30 Days #60 tablet. 04/27/20 guaiFENesin [Mucinex] 600 mg PO Q12HR PRN tablet.er 07/03/20 buPROPion XL [Wellbutrin Xl] 300 mg PO DAILY #3 tab.er.24h 09/30/20 Cephalexin [Keflex] 500 mg PO Q6HR 10 Days #40 cap 10/05/20 Allergies Allergy/AdvReac Type Severity Reaction Status Date / Time denosumab [From Prolia] Allergy SEVERE Verified 10/05/20 16:26 CALCIUM LOSS DUST Allergy Itching Uncoded 10/05/20 16:26 MOLDS Allergy Itching Uncoded 10/05/20 16:26 Review of Systems ROS Statement: Those systems with pertinent positive or pertinent negative responses have been documented in the HPI. ROS Other: All systems not noted in ROS Statement are negative. 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 History of Any Multi-Drug Resistant Organisms: None Reported Past Surgical History: Back Surgery, Bowel Resection Additional Past Surgical History / Comment(s): LOWER BACK SURGERY lamenectomy/discetomy then had a revison of that sx. 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, nasal sx d/t broken nose, colonoscopy/egd, PAIN CLINIC PROCEDURES Past Anesthesia/Blood Transfusion Reactions: No Reported Reaction Additional Past Anesthesia/Blood Transfusion Reaction / Comment(s): PT RECIEVED BLOOD TRANSFUSIONS AFTER STOMACH SURGERY Past Psychological History: Anxiety, Depression, Panic Disorder Smoking Status: Never smoker Past Alcohol Use History: None Reported Past Drug Use History: None Reported - Past Family History Father Family Medical History: Cancer, Coronary Artery Disease (CAD) Additional Family Medical History / Comment(s): FATHER HAD BLADDER AND KIDNEY CANCER. FATHER HAD TB WHEN HE WAS A CHILD .FATHER AT AGE 87. Mother Family Medical History: Cancer Additional Family Medical History / Comment(s): MOTHER AT AGE 58 OF OVARIAN CANCER. General Exam Limitations: no limitations General appearance: alert, in no apparent distress Head exam: Present: atraumatic, normocephalic, normal inspection Eye exam: Present: normal appearance, PERRL, EOMI. Absent: scleral icterus, conjunctival injection, periorbital swelling ENT exam: Present: normal exam, mucous membranes moist Neck exam: Present: normal inspection. Absent: tenderness, meningismus, lymphadenopathy Respiratory exam: Present: normal lung sounds bilaterally. Absent: respiratory distress, wheezes, rales, rhonchi, stridor Cardiovascular Exam: Present: regular rate, normal rhythm, normal heart sounds. Absent: systolic murmur, diastolic murmur, rubs, gallop, clicks GI/Abdominal exam: Present: soft, normal bowel sounds. Absent: distended, tenderness, guarding, rebound, rigid Back exam: Absent: CVA tenderness (R), CVA tenderness (L) Course Vital Signs 10/05/20 10/05/20 16:24 17:35 Temperature 98.1 F Pulse Rate 113 H 96 Respiratory 20 18 Rate Blood Pressure 132/65 O2 Sat by Pulse 97 97 Oximetry Medical Decision Making - Medical Decision Making Vitals are stable. Patient initially tachycardic however this did improve throughout her stay. No CVA tenderness. Patient does have a urinary tract infection. I did review previous cultures are sensitive to cephalosporins. We will start patient on Keflex. Culture will be ordered today. She will return for any worsening symptoms and will otherwise follow up with her doctor. - Lab Data Lab Results 10/05/20 Range/Units 16:57 Urine Color Yellow Urine Appearance Cloudy H (Clear) Urine pH 6.0 (5.0-8.0) Ur Specific [place] 1.020 (1.001-1.035) Urine Protein 1+ H (Negative) Urine Glucose (UA) Negative (Negative) Urine Ketones Negative (Negative) Urine Blood Trace H (Negative) Urine Nitrite Negative (Negative) Urine Bilirubin Negative (Negative) Urine Urobilinogen <2.0 (<2.0) mg/dL Ur Leukocyte Esterase Large H (Negative) Urine RBC 1 (0-5) /hpf Urine WBC >182 H (0-5) /hpf Ur Squamous Epith Cells 1 (0-4) /hpf Urine Bacteria Occasional H (None) /hpf Hyaline Casts 1 (0-2) /lpf Urine Mucus Rare H (None) /hpf Disposition Clinical Impression: Urinary tract infection Disposition: HOME SELF-CARE Condition: Good Instructions (If sedation given, give patient instructions): Urinary Tract Infection in Women (ED) Additional Instructions: Please take antibiotic as directed. This was sent to [facility] [address]. Follow-up with your doctor in one to 2 days. If you have any worsening symptoms such as fevers, vomiting, worsening pain you need to return to the emergency room. Prescriptions: Cephalexin [Keflex] 500 mg PO Q6HR 10 Days #40 cap Is patient prescribed a controlled substance at d/c from ED?: No Referrals: Ale Eli MD [Primary Care Provider] - 1-2 days Time of Disposition: 17:57
== END 2020-10-05 18:06 | disposition home or self-care (01) ==
LOC: EC 16:22
DX: N39.0 Urinary tract infection, site not specified (principal); J45.909 Unspecified asthma, uncomplicated; K21.9 Gastro-esophageal reflux disease without esophagitis; F32.9 Major depressive disorder, single episode, unspecified; F41.9 Anxiety disorder, unspecified; Z86.718 Personal history of other venous thrombosis and embolism
CPT/HCPCS: 81001; 87086; 99283

== ENCOUNTER 2020-10-09 21:34 | Inpatient (IN) | payer MEDICARE, OTHER ==
--- NOTE | 2020-10-09 22:16 | ED ---
Recheck HPI - General Chief Complaint: Recheck/Abnormal Lab/Rx Stated Complaint: SOB Time Seen by Provider: 10/09/20 21:54 Source: patient, RN notes reviewed, old records reviewed Mode of arrival: wheelchair - History of Present Illness Initial Comments: This is a 75-year-old female DF for evaluation patient Dese for evaluation of recurrent shortness of breath painful urination with treatment of urinary tract infection rib cage pain. No fevers. Persistent shortness of breath. History of asthma. MD Complaint: other (Reevaluation shortness of breath and rib pain) -: days(s) Returns Today for: persistent/worsening pain related to initial visit Symptoms Since Prior Visit: worsening pain Associated Symptoms: none, shortness of breath, abdominal pain Treatments Prior to Arrival: Given Pain Meds on - Related Data Home Medications Medication Instructions Recorded Confirmed DULoxetine HCL [Cymbalta] 60 mg PO DAILY 09/17/13 10/09/20 Ferrous Sulfate [Iron (65 MG 325 mg PO DAILY 11/06/15 10/09/20 Elemental)] Levocetirizine Dihydrochloride 5 mg PO HS 05/31/17 10/09/20 [Xyzal] Levothyroxine Sodium [Synthroid] 88 mcg PO DAILY 06/07/19 10/09/20 calcitrioL [Calcitriol] 1 mcg PO MOWEFR 06/07/19 10/09/20 Albuterol Inhaler [Ventolin Hfa 1 puff INHALATION RT-Q6H PRN 10/05/19 10/09/20 Inhaler] busPIRone HCL [Buspar] 30 mg PO BID 04/14/20 10/09/20 HYDROcodone/APAP 5-325MG [[place] 1 tab PO BID PRN 04/18/20 10/09/20 5-325] Potassium Chloride ER [K-Dur 10] 10 meq PO TID 04/18/20 10/09/20 hydrOXYzine pamoate [hydrOXYzine 25 mg PO TID 04/18/20 10/09/20 PAMOATE] Budesonide/Formoterol Fumarate 2 puff INHALATION RT-BID 06/30/20 10/09/20 [Symbicort 160-4.5 Mcg Inhaler] Butalb/APAP/Caff 50-325-40Mg 1 tab PO BID PRN 06/30/20 10/09/20 [Fioricet 50-325-40] Fluticasone Nasal [place] [Flonase 1 spray EA NOSTRIL DAILY PRN 06/30/20 10/09/20 Nasal [place]] Furosemide [Lasix] 20 mg PO DAILY 06/30/20 10/09/20 Mirtazapine 45 mg PO HS 06/30/20 10/09/20 SUMAtriptan SUCCINATE [Imitrex] 50 mg PO DAILY PRN 06/30/20 10/09/20 fentaNYL 75MCG/HR PATCH [Duragesic 1 patch TRANSDERM Q72H 06/30/20 10/09/20 75MCG/HR] Magnesium Oxide 400 mg PO DAILY 10/09/20 10/09/20 Previous Rx's Medication Instructions Recorded Pantoprazole Sodium [Protonix] 40 mg PO BID 30 Days #60 tablet. 04/27/20 buPROPion XL [Wellbutrin XL] 300 mg PO DAILY #3 tab.er.24h 09/30/20 Amoxicillin/Potassium Clav 1 tab PO Q12HR 10 Days #20 tab 10/12/20 [Augmentin 500-125 Tablet] HYDROcodone/APAP 5-325MG [[place] 5] 1 each PO Q6HR PRN #12 tab 10/12/20 Allergies Allergy/AdvReac Type Severity Reaction Status Date / Time denosumab [From Prolia] Allergy SEVERE Verified 10/21/20 17:49 CALCIUM LOSS DUST Allergy Itching Uncoded 10/21/20 17:49 MOLDS Allergy Itching Uncoded 10/21/20 17:49 Review of Systems ROS Statement: Those systems with pertinent positive or pertinent negative responses have been documented in the HPI. ROS Other: All systems not noted in ROS Statement are negative. 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 History of Any Multi-Drug Resistant Organisms: None Reported Past Surgical History: Back Surgery, Bowel Resection Additional Past Surgical History / Comment(s): LOWER BACK SURGERY lamenectom y/discetomy then had a revison of that sx. 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, nasal sx d/t broken nose, colonoscopy/egd, PAIN CLINIC PROCEDURES Past Anesthesia/Blood Transfusion Reactions: No Reported Reaction Additional Past Anesthesia/Blood Transfusion Reaction / Comment(s): PT RECIEVED BLOOD TRANSFUSIONS AFTER STOMACH SURGERY Past Psychological History: Anxiety, Depression, Panic Disorder Smoking Status: Never smoker Past Alcohol Use History: None Reported Past Drug Use History: None Reported - Past Family History Father Family Medical History: Cancer, Coronary Artery Disease (CAD) Additional Family Medical History / Comment(s): FATHER HAD BLADDER AND KIDNEY CANCER. FATHER HAD TB WHEN HE WAS A CHILD .FATHER AT AGE 87. Mother Family Medical History: Cancer Additional Family Medical History / Comment(s): MOTHER AT AGE 58 OF OVARIAN CANCER. General Exam General appearance: alert, in no apparent distress, anxious Head exam: Present: atraumatic, normocephalic, normal inspection Eye exam: Present: normal appearance, PERRL, EOMI. Absent: scleral icterus, conjunctival injection, periorbital swelling ENT exam: Present: normal exam, mucous membranes moist Neck exam: Present: normal inspection. Absent: tenderness, meningismus, lymphadenopathy Respiratory exam: Present: decreased breath sounds, prolonged expiratory. Absent: respiratory distress, rales, rhonchi, stridor Cardiovascular Exam: Present: regular rate, normal rhythm, normal heart sounds. Absent: systolic murmur, diastolic murmur, rubs, gallop, clicks GI/Abdominal exam: Present: soft, normal bowel sounds. Absent: distended, tenderness, guarding, rebound, rigid Extremities exam: Present: normal inspection, full ROM, normal capillary refill. Absent: tenderness, pedal edema, joint swelling, calf tenderness Back exam: Present: normal inspection Neurological exam: Present: alert, oriented X3, CN II-XII intact Psychiatric exam: Present: normal affect, normal mood Skin exam: Present: warm, dry, intact, normal color. Absent: rash Course Vital Signs 10/09/20 10/09/20 10/09/20 21:44 22:53 22:59 Temperature 98.1 F Pulse Rate 97 97 99 Respiratory 16 Rate Blood Pressure 116/64 O2 Sat by Pulse 100 Oximetry 10/09/20 10/10/20 10/10/20 23:25 00:35 06:00 Temperature 98.4 F Pulse Rate 94 89 98 Respiratory 18 16 22 Rate Blood Pressure 100/66 109/63 138/76 O2 Sat by Pulse 99 99 98 Oximetry 10/10/20 07:00 Temperature Pulse Rate 104 H Respiratory 18 Rate Blood Pressure 123/73 O2 Sat by Pulse 98 Oximetry - Reevaluation(s) Reevaluation #1: Medical record is reviewed Patient no significant acute distress Patient symptoms improved here in the ER Patient informed of results and questions answered Medical Decision Making - Medical Decision Making 75 female found of bilateral pneumonia. Acute kidney injury. Patient has otherwise no recent travel history or sick contacts. Patient be admitted for IV antibiotics and management - Lab Data Result diagrams: 10/12/20 06:20 10/12/20 06:20 Lab Results 10/09/20 10/09/20 10/09/20 Range/Units 22:16 22:30 22:30 WBC 15.3 H (3.8-10.6) k/uL RBC 3.37 L (3.80-5.40) m/uL Hgb 8.8 L (11.4-16.0) gm/dL Hct 29.2 L (34.0-46.0) % MCV 86.8 (80.0-100.0) fL MCH 26.1 (25.0-35.0) pg MCHC 30.0 L (31.0-37.0) g/dL RDW 16.7 H (11.5-15.5) % Plt Count 362 (150-450) k/uL MPV 7.0 Neutrophils % 76 % Lymphocytes % 11 % Monocytes % 6 % Eosinophils % 4 % Basophils % 1 % Neutrophils # 11.6 H (1.3-7.7) k/uL Lymphocytes # 1.7 (1.0-4.8) k/uL Monocytes # 0.9 (0-1.0) k/uL Eosinophils # 0.7 (0-0.7) k/uL Basophils # 0.1 (0-0.2) k/uL Hypochromasia Moderate Poikilocytosis Slight Anisocytosis Slight Sodium 142 (137-145) mmol/L Potassium 3.3 L (3.5-5.1) mmol/L Chloride 108 H (98-107) mmol/L Carbon Dioxide 22 (22-30) mmol/L Anion Gap 12 mmol/L BUN 34 H (7-17) mg/dL Creatinine 1.52 H (0.52-1.04) mg/dL Est GFR (CKD-EPI)AfAm 39 (>60 ml/min/1.73 sqM) Est GFR (CKD-EPI)NonAf 34 (>60 ml/min/1.73 sqM) Glucose 113 H (74-99) mg/dL Calcium 8.6 (8.4-10.2) mg/dL Phosphorus 2.5 (2.5-4.5) mg/dL Magnesium 1.9 (1.6-2.3) mg/dL Total Bilirubin 0.2 (0.2-1.3) mg/dL AST 58 H (14-36) U/L ALT 56 H (4-34) U/L Alkaline Phosphatase 278 H (38-126) U/L Creatine Kinase 89 (30-135) U/L Troponin I (0.000-0.034) ng/mL Total Protein 6.2 L (6.3-8.2) g/dL Albumin 3.5 (3.5-5.0) g/dL Urine Color Yellow Urine Appearance Clear (Clear) Urine pH 6.0 (5.0-8.0) Ur Specific [place] 1.018 (1.001-1.035) Urine Protein 1+ H (Negative) Urine Glucose (UA) Negative (Negative) Urine Ketones Negative (Negative) Urine Blood Negative (Negative) Urine Nitrite Negative (Negative) Urine Bilirubin Negative (Negative) Urine Urobilinogen <2.0 (<2.0) mg/dL Ur Leukocyte Esterase Moderate H (Negative) Urine RBC <1 (0-5) /hpf Urine WBC 4 (0-5) /hpf Ur Squamous Epith Cells 2 (0-4) /hpf 10/09/20 Range/Units 22:30 WBC (3.8-10.6) k/uL RBC (3.80-5.40) m/uL Hgb (11.4-16.0) gm/dL Hct (34.0-46.0) % MCV (80.0-100.0) fL MCH (25.0-35.0) pg MCHC (31.0-37.0) g/dL RDW (11.5-15.5) % Plt Count (150-450) k/uL MPV Neutrophils % % Lymphocytes % % Monocytes % % Eosinophils % % Basophils % % Neutrophils # (1.3-7.7) k/uL Lymphocytes # (1.0-4.8) k/uL Monocytes # (0-1.0) k/uL Eosinophils # (0-0.7) k/uL Basophils # (0-0.2) k/uL Hypochromasia Poikilocytosis Anisocytosis Sodium (137-145) mmol/L Potassium (3.5-5.1) mmol/L Chloride (98-107) mmol/L Carbon Dioxide (22-30) mmol/L Anion Gap mmol/L BUN (7-17) mg/dL Creatinine (0.52-1.04) mg/dL Est GFR (CKD-EPI)AfAm (>60 ml/min/1.73 sqM) Est GFR (CKD-EPI)NonAf (>60 ml/min/1.73 sqM) Glucose (74-99) mg/dL Calcium (8.4-10.2) mg/dL Phosphorus (2.5-4.5) mg/dL Magnesium (1.6-2.3) mg/dL Total Bilirubin (0.2-1.3) mg/dL AST (14-36) U/L ALT (4-34) U/L Alkaline Phosphatase (38-126) U/L Creatine Kinase (30-135) U/L Troponin I <0.012 (0.000-0.034) ng/mL Total Protein (6.3-8.2) g/dL Albumin (3.5-5.0) g/dL Urine Color Urine Appearance (Clear) Urine pH (5.0-8.0) Ur Specific [place] (1.001-1.035) Urine Protein (Negative) Urine Glucose (UA) (Negative) Urine Ketones (Negative) Urine Blood (Negative) Urine Nitrite (Negative) Urine Bilirubin (Negative) Urine Urobilinogen (<2.0) mg/dL Ur Leukocyte Esterase (Negative) Urine RBC (0-5) /hpf Urine WBC (0-5) /hpf Ur Squamous Epith Cells (0-4) /hpf - Radiology Data Radiology results: report reviewed (Ultrasound gallbladder is negative chest x- rays bilateral pneumonia), image reviewed Disposition Clinical Impression: Acute kidney injury, Dehydration, Bilateral pneumonia Disposition: ADMITTED IP TO THIS [facility] Condition: Stable Is patient prescribed a controlled substance at d/c from ED?: No
[2020-10-09] MEDS ORDERED: SODIUM CHLORIDE 0.9% 1,000 ML IV STA (22:24)
--- NOTE | 2020-10-09 22:31 | XR ---
EXAMINATION TYPE: XR chest 2V DATE OF EXAM: 10/09/2020 COMPARISON: 07/07/2020 HISTORY: Chest pain There are bilateral patchy areas of airspace consolidation in the right midlung and in the left lowe r lobe. Heart size is fairly normal. There is no gross heart failure. Mediastinum is within normal li mits. I see no definite pleural effusion. IMPRESSION: There is bilateral pneumonia which is chronic and slightly worse than last exam. There is increasing interstitial infiltrate in the lower lobes compared to old exam. No definite heart failur e.
[2020-10-09] MEDS ORDERED: IPRATROPIUM-ALBUTEROL 3 ML NEB INHALATION STA (22:35)
[2020-10-09 22:39] LABS: Appearance,Urine Clear (Clear); Bilirubin,Urine Negative (Negative); Blood,Urine Negative (Negative); Color,Urine Yellow; Glucose,Urine (UA) Negative (Negative); Ketones,Urine Negative (Negative); Leukocyte Esterase,Urine Moderate (Negative); Nitrite,Urine Negative (Negative); Protein,Urine 1+ (Negative); RBC,Urine <1 /hpf (0-5); Specific Gravity,Urine 1.018 (1.001-1.035); Squamous Epithelial Cell,Urine 2 /hpf (0-4); Urobilinogen,Urine <2.0 mg/dL (<2.0); WBC,Urine 4 /hpf (0-5)
[2020-10-09 22:40] LABS: Anisocytosis Slight; Basophils # (A) 0.1 k/uL (0-0.2); Basophils % (A) 1 %; Eosinophils # (A) 0.7 k/uL (0-0.7); Eosinophils % (A) 4 %; HCT 29.2 % (34.0-46.0); HGB 8.8 gm/dL (11.4-16.0); Hypochromasia Moderate; Lymphocytes # (A) 1.7 k/uL (1.0-4.8); Lymphocytes % (A) 11 %; MCH 26.1 pg (25.0-35.0); MCV 86.8 fL (80.0-100.0); Monocytes # (A) 0.9 k/uL (0-1.0); Monocytes % (A) 6 %; Neutrophils # (A) 11.6 k/uL (1.3-7.7); Neutrophils % (A) 76 %; Platelet Count 362 k/uL (150-450); Poikilocytosis Slight; RBC 3.37 m/uL (3.80-5.40); RDW 16.7 % (11.5-15.5); WBC 15.3 k/uL (3.8-10.6)
[2020-10-09 22:48] LABS: Albumin 3.5 g/dL (3.5-5.0); Calcium 8.6 mg/dL (8.4-10.2); Magnesium 1.9 mg/dL (1.6-2.3); Phosphorus 2.5 mg/dL (2.5-4.5); Total Bilirubin 0.2 mg/dL (0.2-1.3); Total Protein 6.2 g/dL (6.3-8.2)
[2020-10-09 22:49] LABS: Potassium 3.3 mmol/L (3.5-5.1)
[2020-10-10] MEDS ORDERED: PNEUMONIA PROTOCOL UTILIZED 1 EACH MISC PO PRN (00:17)
[2020-10-10] MEDS ORDERED: LEVOFLOXACIN 750MG-D5W PMX 750 MG in DEXTROSE/WATER 1 150ML.BAG IVPB STA (00:17)
[2020-10-10] MEDS: SODIUM CHLORIDE 0.9% 1,000 ML IV SCH ×2 (00:41→11:47)
[2020-10-10] MEDS ORDERED: IPRATROPIUM-ALBUTEROL 3 ML NEB INHALATION PRN (00:43)
[2020-10-10] MEDS ORDERED: HYDROcodone/APAP 10-325MG 1 EACH TAB PO ONE (00:50)
[2020-10-10] MEDS: MIRTAZAPINE 45 MG TABLET PO SCH ×2 (01:34→22:43)
[2020-10-10] MEDS ORDERED: IPRATROPIUM-ALBUTEROL 3 ML NEB INHALATION SCH (04:00)
[2020-10-10] MEDS: HYDROcodone/APAP 5-325MG 1 EACH TAB PO PRN ×4 (07:05→21:17)
[2020-10-10] MEDS: IPRATROPIUM-ALBUTEROL 3 ML NEB INHALATION SCH ×3 (07:10→19:59)
--- NOTE | 2020-10-10 07:52 | US ---
EXAMINATION TYPE: US gallbladder DATE OF EXAM: 10/10/2020 COMPARISON: CT 2020, US 2019 CLINICAL HISTORY: GB. Abdomen pain EXAM MEASUREMENTS: Liver Length: 16.1 cm Gallbladder Wall: 0.2 cm CBD: 0.3 cm Right Kidney: 7.3 x 2.6 x 3.5 cm Pancreas: visualized portions appears hyperechoic Liver: wnl Gallbladder: wnl Evidence for sonographic Almaguer's sign: no CBD: wnl Right Kidney: small in size, inferior pole obscured by overlying bowel gas IMPRESSION: The right kidney is small in size with cortical thinning.
[2020-10-10] MEDS ORDERED: SUMAtriptan succinate 50 MG TAB PO PRN (09:00)
[2020-10-10] MEDS ORDERED: FLUTICASONE 50MCG/SPRAY NASAL 16GM EA NOSTRIL PRN (09:06)
[2020-10-10 09:51] LABS: Anisocytosis Slight; Basophils # (A) 0.1 k/uL (0-0.2); Basophils % (A) 1 %; Eosinophils # (A) 0.6 k/uL (0-0.7); Eosinophils % (A) 5 %; HCT 29.6 % (34.0-46.0); HGB 9.3 gm/dL (11.4-16.0); Hypochromasia Moderate; Lymphocytes # (A) 1.1 k/uL (1.0-4.8); Lymphocytes % (A) 8 %; MCH 27.3 pg (25.0-35.0); MCHC 31.5 g/dL (31.0-37.0); MCV 86.8 fL (80.0-100.0); Mean Platelet Volume 6.8; Monocytes # (A) 0.7 k/uL (0-1.0); Monocytes % (A) 5 %; Neutrophils % (A) 81 %; Platelet Count 358 k/uL (150-450); Poikilocytosis Slight; RBC 3.41 m/uL (3.80-5.40); RDW 16.5 % (11.5-15.5); WBC 13.7 k/uL (3.8-10.6)
[2020-10-10 11:27] LABS: Glucose,Whole Blood 80 mg/dL (75-99)
[2020-10-10] MEDS: POTASSIUM CHLORIDE ER 10 MEQ TAB.ER.PRT PO SCH ×3 (11:47→19:42)
[2020-10-10] MEDS: PIPERACILLIN-TAZOBACTAM 3.375 GM in SODIUM CHLORIDE 0.9% 100 ML IVPB SCH ×2 (11:47→19:36)
[2020-10-10] MEDS: busPIRone HCl 10 MG TAB PO SCH ×2 (11:47→19:41)
[2020-10-10] MEDS: PANTOPRAZOLE 40 MG TABLET PO SCH ×2 (11:47→19:41)
[2020-10-10] MEDS: DULoxetine HCL 60 MG CAPSULE.DR PO SCH (11:47)
[2020-10-10] MEDS: hydrOXYzine pamoate 25 MG CAP PO SCH ×3 (11:48→19:41)
[2020-10-10] MEDS: LEVOTHYROXINE 88 MCG TAB PO SCH (11:48)
[2020-10-10] MEDS: buPROPion XL 300 MG TAB.ER.24H PO SCH (11:49)
[2020-10-10] MEDS: FERROUS SULFATE 325 MG TAB PO SCH (11:49)
[2020-10-10] MEDS: MAGNESIUM OXIDE 400 MG TAB PO SCH (11:52)
--- NOTE | 2020-10-10 12:16 | P.CNPUL ---
History of Present Illness Consult date: 10/10/20 Requesting physician: Wale Sands Chief complaint: Shortness of breath History of present illness: This is a 75-year-old white female patient with past medical history of aspiration pneumonia in June and patient had a prolonged hospitalization at this hospital and this was secondary to GI obstruction, history of peptic ulcer disease, with history of partial gastrectomy and Kacey-en-Y gastric bypass surgery at the [facility]. History includes chronic anemia, hypothyroidism, hyperlipidemia, migraine cephalgia, history of DVT. Following her hospitalization patient did follow up at the [facility] for the gastric obstruction at the level of the diaphragm as was noted by the barium swallow. Patient was unable to receive anything by mouth. She was started on TPN infusions. No surgical intervention was recommended, and patient continued on TPN infusions. She does state that she consumes some food by mouth, mostly soft diet, cream of wheat, and mashed potatoes. On 10/09/2020 patient comes into the emergency department with complaint of shortness of breath. Of note in the last 10 days patient had been to the emergency department 5 times with various complaints, for evaluation of generalized itching and rash, for pain medication refills, for dysuria, most recently for PICC line placement, and now for shortness of breath. Patient's chest x-ray showed bilateral patchy areas of airspace consolidation in the right midlung and in the left lower lobe, and these changes appear to be chronic however appeared slightly worse than the last exam from 07/07/2020. There was also increased interstitial infiltrate in the lower lobes compared to old exam. Patient tested negative for COVID 19, white count was 15.3, hemoglobin was 8.8, potassium 3.3, chloride is 108, the rest of electrolytes were unremarkable, BUN was 34, creatinine is 1.52, troponin was less than 0.012, AST was 58, ALT was 56, alkaline phosphatase was 278. Urinalysis showed 1+ protein, moderate leukocytes, WBCs were 4. Most recent urine culture on 10/05/2020 from the ER visit was found to be positive for E. coli. Patient was started on Levaquin, she was subsequently switched over to Rocephin. In view of elevated liver enzymes gallbladder ultrasound was completed showing liver and gallbladder within normal limits, common bile duct was within normal limits, and it was small in size right kidney with cortical thinning. On physical exam patient appears to be reading comfortably, lung sounds are clear, she has a occasional cough, with no phlegm production, no hemoptysis, no fever or chills. Patient is on room air pulse ox is 98% Review of Systems All systems: negative Constitutional: Denies chills, Denies fever Eyes: denies blurred vision, denies pain Ears, nose, mouth and throat: Denies headache, Denies sore throat Cardiovascular: Denies chest pain, Denies shortness of breath Respiratory: Reports dyspnea, Denies cough Gastrointestinal: Reports abdominal pain, Denies diarrhea, Denies nausea, Denies vomiting Genitourinary: Denies dysuria, Denies hematuria Musculoskeletal: Denies myalgias Integumentary: Denies pruritus, Denies rash Neurological: Denies numbness, Denies weakness Psychiatric: Denies anxiety, Denies depression Endocrine: Denies fatigue, Denies weight change Past Medical History Past Medical History: Asthma, Deep Vein Thrombosis (DVT), GERD/Reflux, Memory Impairment Additional Past Medical History / Comment(s): 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 History of Any Multi-Drug Resistant Organisms: None Reported Past Surgical History: Back Surgery, Bowel Resection Additional Past Surgical History / Comment(s): LOWER BACK SURGERY lamenectomy/discetomy then had a revison of that sx. 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, nasal sx d/t broken nose, colonoscopy/egd, PAIN CLINIC PROCEDURES Past Anesthesia/Blood Transfusion Reactions: No Reported Reaction Additional Past Anesthesia/Blood Transfusion Reaction / Comment(s): PT RECIEVED BLOOD TRANSFUSIONS AFTER STOMACH SURGERY Past Psychological History: Anxiety, Depression, Panic Disorder Smoking Status: Never smoker Past Alcohol Use History: None Reported Past Drug Use History: None Reported - Past Family History Father Family Medical History: Cancer, Coronary Artery Disease (CAD) Additional Family Medical History / Comment(s): FATHER HAD BLADDER AND KIDNEY CANCER. FATHER HAD TB WHEN HE WAS A CHILD .FATHER AT AGE 87. Mother Family Medical History: Cancer Additional Family Medical History / Comment(s): MOTHER AT AGE 58 OF OVARIAN CANCER. Medications and Allergies Home Medications Medication Instructions Recorded Confirmed Type DULoxetine HCL [Cymbalta] 60 mg PO DAILY 09/17/13 10/09/20 History Ferrous Sulfate [Iron (65 MG 325 mg PO DAILY 11/06/15 10/09/20 History Elemental)] Levocetirizine Dihydrochloride 5 mg PO HS 05/31/17 10/09/20 History [Xyzal] Levothyroxine Sodium [Synthroid] 88 mcg PO DAILY 06/07/19 10/09/20 History calcitrioL [Calcitriol] 1 mcg PO MOWEFR 06/07/19 10/09/20 History Albuterol Inhaler [Ventolin Hfa 1 puff INHALATION RT-Q6H PRN 10/05/19 10/09/20 History Inhaler] busPIRone HCL [Buspar] 30 mg PO BID 04/14/20 10/09/20 History HYDROcodone/APAP 5-325MG [[place] 1 tab PO BID PRN 04/18/20 10/09/20 History 5-325] Potassium Chloride ER [K-Dur 10] 10 meq PO TID 04/18/20 10/09/20 History hydrOXYzine pamoate [hydrOXYzine 25 mg PO TID 04/18/20 10/09/20 History PAMOATE] Pantoprazole Sodium [Protonix] 40 mg PO BID 30 Days #60 tablet. 04/27/20 Rx Budesonide/Formoterol Fumarate 2 puff INHALATION RT-BID 06/30/20 10/09/20 History [Symbicort 160-4.5 Mcg Inhaler] Butalb/APAP/Caff 50-325-40Mg 1 tab PO BID PRN 06/30/20 10/09/20 History [Fioricet 50-325-40] Fluticasone Nasal [place] [Flonase 1 spray EA NOSTRIL DAILY PRN 06/30/20 10/09/20 History Nasal [place]] Furosemide [Lasix] 20 mg PO DAILY 06/30/20 10/09/20 History Mirtazapine 45 mg PO HS 06/30/20 10/09/20 History SUMAtriptan SUCCINATE [Imitrex] 50 mg PO DAILY PRN 06/30/20 10/09/20 History fentaNYL 75MCG/HR PATCH [Duragesic 1 patch TRANSDERM Q72H 06/30/20 10/09/20 History 75MCG/HR] buPROPion XL [Wellbutrin Xl] 300 mg PO DAILY #3 tab.er.24h 09/30/20 10/09/20 Rx Cephalexin [Keflex] 500 mg PO Q6HR 10 Days #40 cap 10/05/20 10/09/20 Rx Magnesium Oxide 400 mg PO DAILY 10/09/20 10/09/20 History Allergies Allergy/AdvReac Type Severity Reaction Status Date / Time denosumab [From Prolia] Allergy SEVERE Verified 10/09/20 23:11 CALCIUM LOSS DUST Allergy Itching Uncoded 10/09/20 23:11 MOLDS Allergy Itching Uncoded 10/09/20 23:11 Physical Exam Vitals: Vital Signs Temp Pulse Pulse Resp BP BP Pulse Ox 10/10/20 11:29 98.3 F 93 18 121/70 98 10/10/20 07:00 104 H 18 123/73 98 10/10/20 06:00 98 22 138/76 98 10/10/20 00:35 89 16 109/63 99 10/09/20 23:25 98.4 F 94 18 100/66 99 10/09/20 22:59 99 10/09/20 22:53 97 10/09/20 21:44 98.1 F 97 16 116/64 100 Intake and Output 10/09/20 10/10/20 10/10/20 22:59 06:59 14:59 Other: Weight 43.091 kg GENERAL EXAM: Alert, very pleasant, 75-year-old white female, on room air with a pulse ox of 90% comfortable in no apparent distress. HEAD: Normocephalic/atraumatic. EYES: Normal reaction of pupils, equal size. Conjunctiva pink, sclera white. NOSE: Clear with pink turbinates. THROAT: No erythema or exudates. NECK: No masses, no JVD, no thyroid enlargement, no adenopathy. CHEST: No chest wall deformity. Symmetrical expansion. LUNGS: Equal air entry with no crackles, wheeze, rhonchi or dullness. CVS: Regular rate and rhythm, normal S1 and S2, no gallops, no murmurs, no rubs ABDOMEN: Soft, nontender. No hepatosplenomegaly, normal bowel sounds, no guarding or rigidity. EXTREMITIES: No clubbing, no edema, no cyanosis, 2+ pulses and upper and lower extremities. Right upper extremity PICC line in place for TPN infusion MUSCULOSKELETAL: Muscle strength and tone normal. SPINE: No scoliosis or deformity SKIN: No rashes CENTRAL NERVOUS SYSTEM: Alert and oriented -3. No focal deficits, tone is normal in all 4 extremities. PSYCHIATRIC: Alert and oriented -3. Appropriate affect. Intact judgment and insight. Results - Laboratory Findings CBC and BMP: 10/10/20 09:24 10/09/20 22:30 Abnormal lab findings: Abnormal Labs 10/09/20 10/09/20 10/09/20 22:16 22:30 22:30 WBC 15.3 H RBC 3.37 L Hgb 8.8 L Hct 29.2 L MCHC 30.0 L RDW 16.7 H Neutrophils # 11.6 H Potassium 3.3 L Chloride 108 H BUN 34 H Creatinine 1.52 H Glucose 113 H AST 58 H ALT 56 H Alkaline Phosphatase 278 H Total Protein 6.2 L Urine Protein 1+ H Ur Leukocyte Esterase Moderate H 10/10/20 09:24 WBC 13.7 H RBC 3.41 L Hgb 9.3 L Hct 29.6 L MCHC RDW 16.5 H Neutrophils # 11.0 H Potassium Chloride BUN Creatinine Glucose AST ALT Alkaline Phosphatase Total Protein Urine Protein Ur Leukocyte Esterase - Diagnostic Findings Chest x-ray: report reviewed, image reviewed Additional studies: Results the gallbladder ultrasound reviewed Assessment and Plan Plan: Assessment: #1. Dyspnea, rule out underlying pneumonia versus chronic aspiration without infection. COVID-19 PCR was negative, chest x-ray shows chronic bilateral airspace disease with increasing interstitial infiltrates and slight worsening #2. History of aspiration pneumonia, with prolonged hospitalization in June 2020 due to gastric obstruction at the diaphragm level #3. History of partial gastrectomy , and Kacey-en-Y gastric bypass and this was done at the [facility] many years ago in 1994 #4. Parenteral nutrition for recurrent aspiration pneumonia and chronic dysphasia. Patient does take soft diet in the form of cream of wheat and mashed potatoes #5. History of dumping syndrome #6. History of COPD, currently stable #7. Remote history of DVT no longer on anticoagulation #8. History of memory impairment, patient has a legal guardian #9. Chronic pain syndrome with history of multiple back surgeries #10. Depression/anxiety #11. Chronic kidney disease stage III #12. GERD/reflux #13. Unspecified severe protein calorie malnutrition #14. Diaphragmatic hernia Plan: We'll switch the IV antibiotics to Zosyn Stop the Rocephin and Levaquin Pro calcitonin level Breathing appears to be comfortable, COPD is not active Dietary evaluation to restart the patient on TPN Patient is on full liquid diet Speech therapy evaluation has been placed in pending We'll continue to follow I performed a history & physical examination of the patient and discussed their management with my nurse practitioner, Brittany Garcia. I reviewed the nurse practitioner's note and agree with the documented findings and plan of care. Lung sounds are positive for diminished breath sounds. The findings and the impression was discussed with the patient. I attest to the documentation by the nurse practitioner. Time with Patient: Greater than 30
--- NOTE | 2020-10-10 12:28 | P.HPIM ---
History of Present Illness H&P Date: 10/10/20 Chief Complaint: Fever weakness pneumonia This is a 75-year-old female patient of Dr. Eli. Patient presented to the ER with complaints of generalized weakness and increased congestion and shortness of breath over the past few days. Patient has a past medical history of gastrectomy in which she was recently treated at [facility] for possible obstruction was started on TPN in which she currently is maintained, previous episodes of aspiration pneumonia, peptic ulcer disease, pancreatitis, chronic kidney disease stage III, chronic pain. Chest x-ray was completed showing bilateral pneumonia which is chronic and slowly worsen last exam there is increasing interstitial in filtrate in the lower lobes compared to old exam no definitive heart failure. White blood cell is elevated 15.3. Creatinine 1.5 to bun 34. Patient does state she does consume food by mouth mostly soft diet. COVID-19 was negative. At this time patient has been started on IV antibiotics blood culture ordered. Sputum culture ordered. Pulmonary service is consulted. Patient denies chest pain. Patient denies nausea vomiting or diarrhea. Patient denies any urinary burning or frequency. Review of Systems Please refer to HPI otherwise unremarkable Past Medical History Past Medical History: Asthma, Deep Vein Thrombosis (DVT), GERD/Reflux, Memory Impairment Additional Past Medical History / Comment(s): 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 History of Any Multi-Drug Resistant Organisms: None Reported Past Surgical History: Back Surgery, Bowel Resection Additional Past Surgical History / Comment(s): LOWER BACK SURGERY garcia enectomy/discetomy then had a revison of that sx. / stomach removed 1989 then other half removed 1994 d/t ulcers-pouch created from small intestine, nasal sx d/t broken nose, colonoscopy/egd, PAIN CLINIC PROCEDURES Past Anesthesia/Blood Transfusion Reactions: No Reported Reaction Additional Past Anesthesia/Blood Transfusion Reaction / Comment(s): PT RECIEVED BLOOD TRANSFUSIONS AFTER STOMACH SURGERY Past Psychological History: Anxiety, Depression, Panic Disorder Smoking Status: Never smoker Past Alcohol Use History: None Reported Past Drug Use History: None Reported - Past Family History Father Family Medical History: Cancer, Coronary Artery Disease (CAD) Additional Family Medical History / Comment(s): FATHER HAD BLADDER AND KIDNEY CANCER. FATHER HAD TB WHEN HE WAS A CHILD .FATHER AT AGE 87. Mother Family Medical History: Cancer Additional Family Medical History / Comment(s): MOTHER AT AGE 58 OF OVARIAN CANCER. Medications and Allergies Home Medications Medication Instructions Recorded Confirmed Type DULoxetine HCL [Cymbalta] 60 mg PO DAILY 09/17/13 10/09/20 History Ferrous Sulfate [Iron (65 MG 325 mg PO DAILY 11/06/15 10/09/20 History Elemental)] Levocetirizine Dihydrochloride 5 mg PO HS 05/31/17 10/09/20 History [Xyzal] Levothyroxine Sodium [Synthroid] 88 mcg PO DAILY 06/07/19 10/09/20 History calcitrioL [Calcitriol] 1 mcg PO MOWEFR 06/07/19 10/09/20 History Albuterol Inhaler [Ventolin Hfa 1 puff INHALATION RT-Q6H PRN 10/05/19 10/09/20 History Inhaler] busPIRone HCL [Buspar] 30 mg PO BID 04/14/20 10/09/20 History HYDROcodone/APAP 5-325MG [[place] 1 tab PO BID PRN 04/18/20 10/09/20 History 5-325] Potassium Chloride ER [K-Dur 10] 10 meq PO TID 04/18/20 10/09/20 History hydrOXYzine pamoate [hydrOXYzine 25 mg PO TID 04/18/20 10/09/20 History PAMOATE] Pantoprazole Sodium [Protonix] 40 mg PO BID 30 Days #60 tablet. 04/27/20 10/09/20 Rx Budesonide/Formoterol Fumarate 2 puff INHALATION RT-BID 06/30/20 10/09/20 History [Symbicort 160-4.5 Mcg Inhaler] Butalb/APAP/Caff 50-325-40Mg 1 tab PO BID PRN 06/30/20 10/09/20 History [Fioricet 50-325-40] Fluticasone Nasal [place] [Flonase 1 spray EA NOSTRIL DAILY PRN 06/30/20 10/09/20 History Nasal [place]] Furosemide [Lasix] 20 mg PO DAILY 06/30/20 10/09/20 History Mirtazapine 45 mg PO HS 06/30/20 10/09/20 History SUMAtriptan SUCCINATE [Imitrex] 50 mg PO DAILY PRN 06/30/20 10/09/20 History fentaNYL 75MCG/HR PATCH [Duragesic 1 patch TRANSDERM Q72H 06/30/20 10/09/20 History 75MCG/HR] buPROPion XL [Wellbutrin Xl] 300 mg PO DAILY #3 tab.er.24h 09/30/20 10/09/20 Rx Cephalexin [Keflex] 500 mg PO Q6HR 10 Days #40 cap 10/05/20 10/09/20 Rx Magnesium Oxide 400 mg PO DAILY 10/09/20 10/09/20 History Allergies Allergy/AdvReac Type Severity Reaction Status Date / Time denosumab [From Prolia] Allergy SEVERE Verified 10/09/20 23:11 CALCIUM LOSS DUST Allergy Itching Uncoded 10/09/20 23:11 MOLDS Allergy Itching Uncoded 10/09/20 23:11 Physical Exam Vitals: Vital Signs Temp Pulse Pulse Resp BP BP Pulse Ox 10/10/20 11:29 98.3 F 93 18 121/70 98 10/10/20 07:00 104 H 18 123/73 98 10/10/20 06:00 98 22 138/76 98 10/10/20 00:35 89 16 109/63 99 10/09/20 23:25 98.4 F 94 18 100/66 99 10/09/20 22:59 99 10/09/20 22:53 97 10/09/20 21:44 98.1 F 97 16 116/64 100 Intake and Output 10/09/20 10/10/20 10/10/20 22:59 06:59 14:59 Other: Weight 43.091 kg 43.091 kg Head normocephalic Neck supple Lungs clear to auscultation bilaterally no wheezing or crackles Heart regular rate and rhythm S1-S2, no rub or gallop Abdomen is soft nontender nondistended positive bowel sounds no hepatosple nomegaly Extremities no edema Neuro alert and orientated to 3 Results CBC & Chem 7: 10/10/20 09:24 10/09/20 22:30 Labs: Abnormal Lab Results - Last 24 Hours (Table) 10/09/20 10/09/20 10/09/20 Range/Units 22:16 22:30 22:30 WBC 15.3 H (3.8-10.6) k/uL RBC 3.37 L (3.80-5.40) m/uL Hgb 8.8 L (11.4-16.0) gm/dL Hct 29.2 L (34.0-46.0) % MCHC 30.0 L (31.0-37.0) g/dL RDW 16.7 H (11.5-15.5) % Neutrophils # 11.6 H (1.3-7.7) k/uL Potassium 3.3 L (3.5-5.1) mmol/L Chloride 108 H (98-107) mmol/L BUN 34 H (7-17) mg/dL Creatinine 1.52 H (0.52-1.04) mg/dL Glucose 113 H (74-99) mg/dL AST 58 H (14-36) U/L ALT 56 H (4-34) U/L Alkaline Phosphatase 278 H (38-126) U/L Total Protein 6.2 L (6.3-8.2) g/dL Urine Protein 1+ H (Negative) Ur Leukocyte Esterase Moderate H (Negative) 10/10/20 Range/Units 09:24 WBC 13.7 H (3.8-10.6) k/uL RBC 3.41 L (3.80-5.40) m/uL Hgb 9.3 L (11.4-16.0) gm/dL Hct 29.6 L (34.0-46.0) % MCHC (31.0-37.0) g/dL RDW 16.5 H (11.5-15.5) % Neutrophils # 11.0 H (1.3-7.7) k/uL Potassium (3.5-5.1) mmol/L Chloride (98-107) mmol/L BUN (7-17) mg/dL Creatinine (0.52-1.04) mg/dL Glucose (74-99) mg/dL AST (14-36) U/L ALT (4-34) U/L Alkaline Phosphatase (38-126) U/L Total Protein (6.3-8.2) g/dL Urine Protein (Negative) Ur Leukocyte Esterase (Negative) Assessment and Plan Assessment: 1. Shortness of breath secondary to bilateral pneumonia. Pulmonary services have been consulted. Patient started on Zosyn. Sputum and blood cultures ordered. Repeat chest x-ray ordered 2. History of partial gastrectomy and Kacey-en-Y gastric bypass in 1994 3. Parenteral nutrition for reoccurring aspiration pneumonia. Patient does reports she does consume soft diet. Speech has been consulted for swallowing evaluation 4. History of aspiration pneumonia with history of prolonged hospitalization in June of this year due to gastric obstruction in which she was transferred to [facility] no surgical intervention was performed and patient was DC'd on TPN 5. History of dumping syndrome 6. Acute on chronic kidney disease stage III. Continue IV fluid 7. History of COPD 8. Chronic pain syndrome 9. Severe protein calorie malnutrition 10. Abnormal ultrasound of gallbladder. Urology service is consulted DVT prophylaxis Lovenox. GI prophylaxis Protonix Pulmonary service is consulted continue IV Zosyn Blood and sputum cultures ordered Dietary consulted for TPN Speech service is consulted for swallow evaluation Repeat labs ordered Time with Patient: Greater than 30 (Greater than 60% of the total time spent in counseling and coordination of care)
[2020-10-10 15:11] LABS: African American GFR (CKD) 44 (>60 ml/min/1.73 sqM); Anion Gap 9 mmol/L; Blood Urea Nitrogen 26 mg/dL (7-17); Calcium 8.3 mg/dL (8.4-10.2); Carbon Dioxide 21 mmol/L (22-30); Chloride 114 mmol/L (98-107); Glucose 114 mg/dL (74-99); Magnesium 1.8 mg/dL (1.6-2.3); Non-African American GFR(CKD) 38 (>60 ml/min/1.73 sqM); Phosphorus 2.1 mg/dL (2.5-4.5); Potassium 3.3 mmol/L (3.5-5.1); Sodium 144 mmol/L (137-145)
[2020-10-10] MEDS: POTASSIUM CHLORIDE ER 20 MEQ TAB.ER PO SCH ×2 (16:11→16:41)
[2020-10-10] MEDS: MAGNESIUM SULFATE-D5W PMX 1 GM in DEXTROSE/WATER 1 100ML.BAG IVPB SCH ×2 (16:11→17:37)
[2020-10-10 16:53] LABS: Glucose,Whole Blood 146 mg/dL (75-99)
[2020-10-10] MEDS ORDERED: POTASSIUM PHOSPHATE 10 MMOL in SODIUM CHLORIDE 0.9% 100 ML IV ONE (17:00)
[2020-10-10] MEDS: INSULIN ASPART (NovoLOG) 100 UNIT/ML VIAL SQ SCH ×2 (17:03→21:20)
[2020-10-10] MEDS ORDERED: MVI, ADULT NO.4 WITH VIT K 10 ML, TRACE (CONC-1ML/DOSE) 1 ML, POTASSIUM PHOSPHATE 15 MM... IV ONE ×7 (18:00)
[2020-10-10] MEDS ORDERED: FAT EMULSION 20% 250 ML IV SCH (18:00)
[2020-10-10] MEDS: BUTALB/APAP/CAFF 50-325-40MG TAB PO PRN (19:35)
[2020-10-10] MEDS: LORATADINE 10 MG TAB PO SCH (19:41)
[2020-10-10] MEDS: SYMBICORT 160-4.5 MCG INHALER INHALATION SCH (19:59)
[2020-10-10 20:36] LABS: Glucose,Whole Blood 117 mg/dL (75-99)
--- NOTE | 2020-10-10 20:50 | P.GSCN ---
History of Present Illness Consult date: 10/10/20 History of present illness: I was asked to see this 75 yo female admitted with bilateral pneumonia. She had a gall bladder us that showed a small than normal right kidney We were asked to evaluate. The patients chart was reviewed as were previous xrays. A history wa s taked from the patient. the patient has a history of recurrent infections there is no histroy of stones or previous urologic surgery or injury. The patient had a ct scan 04/2020 that showed a scarred lower pole of her right kidney without hydronephrosis. Her urine is clear. Review of Systems All systems: negative - Constitutional Denies fever, Denies weight loss - EENT Eyes: denies blurred vision Ears, nose, mouth and throat: Denies dysphagia - Cardiovascular Denies chest pain, Denies shortness of breath - Respiratory Denies cough, Denies 7 - Gastrointestinal Reports as per HPI - Genitourinary Genitourinary: Denies dysuria, Denies hematuria - Integumentary Denies rash, Denies unusual bruising - Neurological Denies headaches, Denies syncope - Hematologic/Lymphatic Denies easy bleeding, Denies easy bruising Past Medical History Past Medical History: Asthma, Deep Vein Thrombosis (DVT), GERD/Reflux, Memory Impairment Additional Past Medical History / Comment(s): OA IN NECK,BACK AND BILATERAL AR MS, PUD, migraine headaches, pancreatitis,constipation,tia,spinal stenosis(had sx ), CRF, Pt is on TPN. History of Any Multi-Drug Resistant Organisms: None Reported Past Surgical History: Back Surgery, Bowel Resection Additional Past Surgical History / Comment(s): LOWER BACK SURGERY lamenectomy/discetomy then had a revison of that sx. 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, nasal sx d/t broken nose, colonoscopy/egd, PAIN CLINIC PROCEDURES Past Anesthesia/Blood Transfusion Reactions: No Reported Reaction Additional Past Anesthesia/Blood Transfusion Reaction / Comm: PT RECIEVED BLOOD TRANSFUSIONS AFTER STOMACH SURGERY Past Psychological History: Anxiety, Depression, Panic Disorder Smoking Status: Never smoker Past Alcohol Use History: None Reported Past Drug Use History: None Reported - Past Family History Father Family Medical History: Cancer, Coronary Artery Disease (CAD) Additional Family Medical History / Comment(s): FATHER HAD BLADDER AND KIDNEY CANCER. FATHER HAD TB WHEN HE WAS A CHILD .FATHER AT AGE 87. Mother Family Medical History: Cancer Additional Family Medical History / Comment(s): MOTHER AT AGE 58 OF OVARIAN CANCER. Medications and Allergies Home Medications Medication Instructions Recorded Confirmed Type DULoxetine HCL [Cymbalta] 60 mg PO DAILY 09/17/13 10/09/20 History Ferrous Sulfate [Iron (65 MG 325 mg PO DAILY 11/06/15 10/09/20 History Elemental)] Levocetirizine Dihydrochloride 5 mg PO HS 05/31/17 10/09/20 History [Xyzal] Levothyroxine Sodium [Synthroid] 88 mcg PO DAILY 06/07/19 10/09/20 History calcitrioL [Calcitriol] 1 mcg PO MOWEFR 06/07/19 10/09/20 History Albuterol Inhaler [Ventolin Hfa 1 puff INHALATION RT-Q6H PRN 10/05/19 10/09/20 History Inhaler] busPIRone HCL [Buspar] 30 mg PO BID 04/14/20 10/09/20 History HYDROcodone/APAP 5-325MG [[place] 1 tab PO BID PRN 04/18/20 10/09/20 History 5-325] Potassium Chloride ER [K-Dur 10] 10 meq PO TID 04/18/20 10/09/20 History hydrOXYzine pamoate [hydrOXYzine 25 mg PO TID 04/18/20 10/09/20 History PAMOATE] Pantoprazole Sodium [Protonix] 40 mg PO BID 30 Days #60 tablet. 04/27/20 10/09/20 Rx Budesonide/Formoterol Fumarate 2 puff INHALATION RT-BID 06/30/20 10/09/20 History [Symbicort 160-4.5 Mcg Inhaler] Butalb/APAP/Caff 50-325-40Mg 1 tab PO BID PRN 06/30/20 10/09/20 History [Fioricet 50-325-40] Fluticasone Nasal [place] [Flonase 1 spray EA NOSTRIL DAILY PRN 06/30/20 10/09/20 History Nasal [place]] Furosemide [Lasix] 20 mg PO DAILY 06/30/20 10/09/20 History Mirtazapine 45 mg PO HS 06/30/20 10/09/20 History SUMAtriptan SUCCINATE [Imitrex] 50 mg PO DAILY PRN 06/30/20 10/09/20 History fentaNYL 75MCG/HR PATCH [Duragesic 1 patch TRANSDERM Q72H 06/30/20 10/09/20 History 75MCG/HR] buPROPion XL [Wellbutrin Xl] 300 mg PO DAILY #3 tab.er.24h 09/30/20 10/09/20 Rx Cephalexin [Keflex] 500 mg PO Q6HR 10 Days #40 cap 10/05/20 10/09/20 Rx Magnesium Oxide 400 mg PO DAILY 10/09/20 10/09/20 History Allergies Allergy/AdvReac Type Severity Reaction Status Date / Time denosumab [From Prolia] Allergy SEVERE Verified 10/09/20 23:11 CALCIUM LOSS DUST Allergy Itching Uncoded 10/09/20 23:11 MOLDS Allergy Itching Uncoded 10/09/20 23:11 Surgical - Exam Vital Signs Temp Pulse Resp BP Pulse Ox 98.1 F 97 16 116/64 100 10/09/20 21:44 10/09/20 21:44 10/09/20 21:44 10/09/20 21:44 10/09/20 21:44 - General well developed, well nourished, no distress - Eyes PERRL - ENT no hearing loss - Neck no masses - Respiratory normal expansion, normal respiratory effort - Cardiovascular Rhythm: regular - Abdomen Abdomen: soft, non tender - Integumentary no rash, no growths - Musculoskeletal normal posture - Psychiatric oriented to time, oriented to person, oriented to place, speech is normal, memory intact Results - Labs 10/10/20 09:24 10/10/20 14:41 Abnormal Lab Results - Last 24 Hours (Table) 10/09/20 10/09/20 10/09/20 Range/Units 22:16 22:30 22:30 WBC 15.3 H (3.8-10.6) k/uL RBC 3.37 L (3.80-5.40) m/uL Hgb 8.8 L (11.4-16.0) gm/dL Hct 29.2 L (34.0-46.0) % MCHC 30.0 L (31.0-37.0) g/dL RDW 16.7 H (11.5-15.5) % Neutrophils # 11.6 H (1.3-7.7) k/uL Potassium 3.3 L (3.5-5.1) mmol/L Chloride 108 H (98-107) mmol/L Carbon Dioxide (22-30) mmol/L BUN 34 H (7-17) mg/dL Creatinine 1.52 H (0.52-1.04) mg/dL Glucose 113 H (74-99) mg/dL POC Glucose (mg/dL) (75-99) mg/dL Calcium (8.4-10.2) mg/dL Phosphorus (2.5-4.5) mg/dL AST 58 H (14-36) U/L ALT 56 H (4-34) U/L Alkaline Phosphatase 278 H (38-126) U/L Total Protein 6.2 L (6.3-8.2) g/dL Procalcitonin (0.02-0.09) ng/mL Urine Protein 1+ H (Negative) Ur Leukocyte Esterase Moderate H (Negative) 10/10/20 10/10/20 10/10/20 Range/Units 09:24 09:24 14:41 WBC 13.7 H (3.8-10.6) k/uL RBC 3.41 L (3.80-5.40) m/uL Hgb 9.3 L (11.4-16.0) gm/dL Hct 29.6 L (34.0-46.0) % MCHC (31.0-37.0) g/dL RDW 16.5 H (11.5-15.5) % Neutrophils # 11.0 H (1.3-7.7) k/uL Potassium 3.3 L (3.5-5.1) mmol/L Chloride 114 H (98-107) mmol/L Carbon Dioxide 21 L (22-30) mmol/L BUN 26 H (7-17) mg/dL Creatinine 1.39 H (0.52-1.04) mg/dL Glucose 114 H (74-99) mg/dL POC Glucose (mg/dL) (75-99) mg/dL Calcium 8.3 L (8.4-10.2) mg/dL Phosphorus 2.1 L (2.5-4.5) mg/dL AST (14-36) U/L ALT (4-34) U/L Alkaline Phosphatase (38-126) U/L Total Protein (6.3-8.2) g/dL Procalcitonin 0.58 H (0.02-0.09) ng/mL Urine Protein (Negative) Ur Leukocyte Esterase (Negative) 10/10/20 10/10/20 Range/Units 16:51 20:34 WBC (3.8-10.6) k/uL RBC (3.80-5.40) m/uL Hgb (11.4-16.0) gm/dL Hct (34.0-46.0) % MCHC (31.0-37.0) g/dL RDW (11.5-15.5) % Neutrophils # (1.3-7.7) k/uL Potassium (3.5-5.1) mmol/L Chloride (98-107) mmol/L Carbon Dioxide (22-30) mmol/L BUN (7-17) mg/dL Creatinine (0.52-1.04) mg/dL Glucose (74-99) mg/dL POC Glucose (mg/dL) 146 H 117 H (75-99) mg/dL Calcium (8.4-10.2) mg/dL Phosphorus (2.5-4.5) mg/dL AST (14-36) U/L ALT (4-34) U/L Alkaline Phosphatase (38-126) U/L Total Protein (6.3-8.2) g/dL Procalcitonin (0.02-0.09) ng/mL Urine Protein (Negative) Ur Leukocyte Esterase (Negative) Diabetes panel 10/09/20 10/10/20 Range/Units 22:30 14:41 Sodium 142 144 (137-145) mmol/L Potassium 3.3 L 3.3 L (3.5-5.1) mmol/L Chloride 108 H 114 H (98-107) mmol/L Carbon Dioxide 22 21 L (22-30) mmol/L BUN 34 H 26 H (7-17) mg/dL Creatinine 1.52 H 1.39 H (0.52-1.04) mg/dL Glucose 113 H 114 H (74-99) mg/dL Calcium 8.6 8.3 L (8.4-10.2) mg/dL AST 58 H (14-36) U/L ALT 56 H (4-34) U/L Alkaline Phosphatase 278 H (38-126) U/L Total Protein 6.2 L (6.3-8.2) g/dL Albumin 3.5 (3.5-5.0) g/dL Calcium panel 10/09/20 10/10/20 Range/Units 22:30 14:41 Calcium 8.6 8.3 L (8.4-10.2) mg/dL Phosphorus 2.5 2.1 L (2.5-4.5) mg/dL Albumin 3.5 (3.5-5.0) g/dL Pituitary panel 10/09/20 10/10/20 Range/Units 22:30 14:41 Sodium 142 144 (137-145) mmol/L Potassium 3.3 L 3.3 L (3.5-5.1) mmol/L Chloride 108 H 114 H (98-107) mmol/L Carbon Dioxide 22 21 L (22-30) mmol/L BUN 34 H 26 H (7-17) mg/dL Creatinine 1.52 H 1.39 H (0.52-1.04) mg/dL Glucose 113 H 114 H (74-99) mg/dL Calcium 8.6 8.3 L (8.4-10.2) mg/dL Adrenal panel 10/09/20 10/10/20 Range/Units 22:30 14:41 Sodium 142 144 (137-145) mmol/L Potassium 3.3 L 3.3 L (3.5-5.1) mmol/L Chloride 108 H 114 H (98-107) mmol/L Carbon Dioxide 22 21 L (22-30) mmol/L BUN 34 H 26 H (7-17) mg/dL Creatinine 1.52 H 1.39 H (0.52-1.04) mg/dL Glucose 113 H 114 H (74-99) mg/dL Calcium 8.6 8.3 L (8.4-10.2) mg/dL Total Bilirubin 0.2 (0.2-1.3) mg/dL AST 58 H (14-36) U/L ALT 56 H (4-34) U/L Alkaline Phosphatase 278 H (38-126) U/L Total Protein 6.2 L (6.3-8.2) g/dL Albumin 3.5 (3.5-5.0) g/dL - Imaging CT scan - abdomen: report reviewed, image reviewed CT scan - pelvis: report reviewed, image reviewed US - abdomen: report reviewed, image reviewed Assessment and Plan Assessment: Impression: bilateral pneumonia. Abnormal us right kidney c/w scarring of kidney probably due to previous pyelonephritis. Plan: this is not a new finding. There is nothing urologic to do.
[2020-10-10 20:59] LABS: African American GFR (CKD) 43.1 (60.0-200.0); Albumin 3.6 g/dL (3.80-4.90); Albumin/Globulin Ratio 1.71 (1.60-3.17); Anion Gap 14.7 mmol/L (4.00-12.00); Calcium 8.1 mg/dL (8.7-10.3); Carbon Dioxide 18.3 mmol/L (21.6-31.8); Globulin 2.1 g/dL (1.6-3.3); Non-African American GFR(CKD) 37.2 (60.0-200.0); Potassium 3.4 mmol/L (3.5-5.5); Total Bilirubin 0.1 mg/dL (0.3-1.2); Total Protein 5.7 g/dL (6.2-8.2)
[2020-10-11] MEDS: HYDROcodone/APAP 5-325MG 1 EACH TAB PO PRN ×6 (01:28→21:34)
[2020-10-11] MEDS: PIPERACILLIN-TAZOBACTAM 3.375 GM in SODIUM CHLORIDE 0.9% 100 ML IVPB SCH ×3 (03:16→20:07)
[2020-10-11] MEDS: SODIUM CHLORIDE 0.9% 1,000 ML IV SCH ×2 (03:17→20:07)
[2020-10-11] MEDS: LEVOTHYROXINE 88 MCG TAB PO SCH (05:42)
[2020-10-11 06:08] LABS: Ionized Calcium 5.1 mg/dL (4.5-5.3)
[2020-10-11 06:19] LABS: African American GFR (CKD) 45 (>60 ml/min/1.73 sqM); Anion Gap 8 mmol/L; Blood Urea Nitrogen 24 mg/dL (7-17); Calcium 8.5 mg/dL (8.4-10.2); Carbon Dioxide 21 mmol/L (22-30); Chloride 113 mmol/L (98-107); Glucose 120 mg/dL (74-99); Magnesium 2.5 mg/dL (1.6-2.3); Non-African American GFR(CKD) 39 (>60 ml/min/1.73 sqM); Phosphorus 2.8 mg/dL (2.5-4.5); Potassium 4.5 mmol/L (3.5-5.1); Sodium 142 mmol/L (137-145)
[2020-10-11 06:43] LABS: Glucose,Whole Blood 110 mg/dL (75-99)
[2020-10-11] MEDS: INSULIN ASPART (NovoLOG) 100 UNIT/ML VIAL SQ SCH ×4 (07:47→21:34)
[2020-10-11] MEDS: hydrOXYzine pamoate 25 MG CAP PO SCH ×3 (07:53→21:27)
[2020-10-11] MEDS: BUTALB/APAP/CAFF 50-325-40MG TAB PO PRN ×2 (07:53→20:00)
[2020-10-11] MEDS: ENOXAPARIN 40 MG/0.4 ML SYRINGE SQ SCH (07:53)
[2020-10-11] MEDS: FERROUS SULFATE 325 MG TAB PO SCH (07:54)
[2020-10-11] MEDS: busPIRone HCl 10 MG TAB PO SCH ×2 (07:54→21:28)
[2020-10-11] MEDS: buPROPion XL 300 MG TAB.ER.24H PO SCH (07:54)
[2020-10-11] MEDS: FUROSEMIDE 20 MG TAB PO SCH (07:54)
[2020-10-11] MEDS: MAGNESIUM OXIDE 400 MG TAB PO SCH (07:54)
[2020-10-11] MEDS: PANTOPRAZOLE 40 MG TABLET PO SCH ×2 (07:54→21:27)
[2020-10-11] MEDS: DULoxetine HCL 60 MG CAPSULE.DR PO SCH (07:54)
[2020-10-11] MEDS: POTASSIUM CHLORIDE ER 10 MEQ TAB.ER.PRT PO SCH ×3 (07:55→21:27)
[2020-10-11] MEDS: SYMBICORT 160-4.5 MCG INHALER INHALATION SCH ×2 (08:13→20:44)
[2020-10-11] MEDS: IPRATROPIUM-ALBUTEROL 3 ML NEB INHALATION SCH ×3 (08:13→20:44)
--- NOTE | 2020-10-11 09:22 | XR ---
EXAMINATION TYPE: XR chest 2V DATE OF EXAM: 10/11/2020 COMPARISON: Chest x-ray 10/09/2020 HISTORY: Pneumonia TECHNIQUE: Frontal and lateral views of the chest are obtained. FINDINGS: Bilateral airspace disease is again seen. No evident pneumothorax. There is blunting of th e left costophrenic angle. Cardiac mediastinal silhouette is stable. There is a right-sided PICC line the distal tip near the cavoatrial junction level. Overlying artifacts suspected. Old left clavicula r fracture appears healed. IMPRESSION: Findings are similar to prior exam, correlate for pneumonia
--- NOTE | 2020-10-11 09:52 | P.PN ---
Subjective Progress Note Date: 10/11/20 This is a 75-year-old female patient of Dr. Eli. Patient presented to the ER with complaints of generalized weakness and increased congestion and shortness of breath over the past few days. Patient has a past medical history of gastrectomy in which she was recently treated at [facility] for possible obstruction was started on TPN in which she currently is maintained, previous episodes of aspiration pneumonia, peptic ulcer disease, pancreatitis, chronic kidney disease stage III, chronic pain. Chest x-ray was completed showing bilateral pneumonia which is chronic and slowly worsen last exam there is increasing interstitial infiltrate in the lower lobes compared to old exam no definitive heart failure. White blood cell is elevated 15.3. Creatinine 1.5 to bun 34. Patient does state she does consume food by mouth mostly soft diet. COVID-19 was negative. At this time patient has been started on IV antibiotics blood culture ordered. Sputum culture ordered. Pulmonary service is consulted. Patient denies chest pain. Patient denies nausea vomiting or diarrhea. Patient denies any urinary burning or frequency. On 10/11/2020 patient is alert and oriented 3. Maintained on IV antibiotics Zosyn. Repeat chest x-ray ordered. Patient remains on TPN attritional services following. Patient reports some improvement with shortness of breath. Patient denies chest pain. Patient denies nausea vomiting or diarrhea. Patient denies any urinary burning or frequency. Temp 98.6. Heart rate 93. Respiratory rate 18. Blood pressure 126/64. Oxygen saturation 95% on room air Objective - Vital Signs Vital signs: Vital Signs Temp 98.6 F 10/11/20 07:11 Pulse 93 10/11/20 07:11 Resp 18 10/11/20 07:11 BP 126/64 10/11/20 07:11 Pulse Ox 95 10/11/20 07:11 Intake & Output 10/10/20 10/11/20 10/11/20 18:59 06:59 18:59 Weight 43.091 kg Other: # Voids 1 1 - Exam Head normocephalic Neck supple Lungs clear to auscultation bilaterally no wheezing or crackles Heart regular rate and rhythm S1-S2, no rub or gallop Abdomen is soft nontender nondistended positive bowel sounds no hepatosplenomegaly Extremities no edema Neuro alert and orientated to 3 - Labs CBC & Chem 7: 10/10/20 09:24 10/11/20 05:29 Labs: Abnormal Lab Results - Last 24 Hours (Table) 10/10/20 10/10/20 10/10/20 Range/Units 09:24 09:24 09:24 WBC 13.7 H (3.8-10.6) k/uL RBC 3.41 L (3.80-5.40) m/uL Hgb 9.3 L (11.4-16.0) gm/dL Hct 29.6 L (34.0-46.0) % RDW 16.5 H (11.5-15.5) % Neutrophils # 11.0 H (1.3-7.7) k/uL Sodium 146 H (135-145) mmol/L Potassium 3.4 L (3.5-5.5) mmol/L Chloride 113 H (96-109) mmol/L Carbon Dioxide 18.3 L (21.6-31.8) mmol/L Anion Gap 14.70 H (4.00-12.00) mmol/L BUN 28.0 H (9.0-27.0) mg/dL Creatinine (0.52-1.04) mg/dL Est GFR (CKD-EPI)AfAm 43.1 L (60.0-200.0) Est GFR (CKD-EPI)NonAf 37.2 L (60.0-200.0) Glucose (74-99) mg/dL POC Glucose (mg/dL) (75-99) mg/dL Calcium 8.1 L (8.7-10.3) mg/dL Phosphorus (2.5-4.5) mg/dL Magnesium (1.6-2.3) mg/dL Total Bilirubin 0.1 L (0.3-1.2) mg/dL ALT 46 H (8-44) U/L Alkaline Phosphatase 285 H (41-126) U/L Total Protein 5.7 L (6.2-8.2) g/dL Albumin 3.60 L (3.80-4.90) g/dL Procalcitonin 0.58 H (0.02-0.09) ng/mL 10/10/20 10/10/20 10/10/20 Range/Units 14:41 16:51 20:34 WBC (3.8-10.6) k/uL RBC (3.80-5.40) m/uL Hgb (11.4-16.0) gm/dL Hct (34.0-46.0) % RDW (11.5-15.5) % Neutrophils # (1.3-7.7) k/uL Sodium (135-145) mmol/L Potassium 3.3 L (3.5-5.5) mmol/L Chloride 114 H (96-109) mmol/L Carbon Dioxide 21 L (21.6-31.8) mmol/L Anion Gap (4.00-12.00) mmol/L BUN 26 H (9.0-27.0) mg/dL Creatinine 1.39 H (0.52-1.04) mg/dL Est GFR (CKD-EPI)AfAm (60.0-200.0) Est GFR (CKD-EPI)NonAf (60.0-200.0) Glucose 114 H (74-99) mg/dL POC Glucose (mg/dL) 146 H 117 H (75-99) mg/dL Calcium 8.3 L (8.7-10.3) mg/dL Phosphorus 2.1 L (2.5-4.5) mg/dL Magnesium (1.6-2.3) mg/dL Total Bilirubin (0.3-1.2) mg/dL ALT (8-44) U/L Alkaline Phosphatase (41-126) U/L Total Protein (6.2-8.2) g/dL Albumin (3.80-4.90) g/dL Procalcitonin (0.02-0.09) ng/mL 10/11/20 10/11/20 Range/Units 05:29 06:41 WBC (3.8-10.6) k/uL RBC (3.80-5.40) m/uL Hgb (11.4-16.0) gm/dL Hct (34.0-46.0) % RDW (11.5-15.5) % Neutrophils # (1.3-7.7) k/uL Sodium (135-145) mmol/L Potassium (3.5-5.5) mmol/L Chloride 113 H (96-109) mmol/L Carbon Dioxide 21 L (21.6-31.8) mmol/L Anion Gap (4.00-12.00) mmol/L BUN 24 H (9.0-27.0) mg/dL Creatinine 1.35 H (0.52-1.04) mg/dL Est GFR (CKD-EPI)AfAm (60.0-200.0) Est GFR (CKD-EPI)NonAf (60.0-200.0) Glucose 120 H (74-99) mg/dL POC Glucose (mg/dL) 110 H (75-99) mg/dL Calcium (8.7-10.3) mg/dL Phosphorus (2.5-4.5) mg/dL Magnesium 2.5 H (1.6-2.3) mg/dL Total Bilirubin (0.3-1.2) mg/dL ALT (8-44) U/L Alkaline Phosphatase (41-126) U/L Total Protein (6.2-8.2) g/dL Albumin (3.80-4.90) g/dL Procalcitonin (0.02-0.09) ng/mL Microbiology - Last 24 Hours (Table) 10/10/20 00:15 Blood Culture - Preliminary Blood No Growth after 24 hours 10/10/20 00:30 Blood Culture - Preliminary Blood No Growth after 24 hours 10/10/20 16:17 Urine Culture - Preliminary Urine,Clean Catch Assessment and Plan Assessment: 1. Shortness of breath secondary to bilateral pneumonia. Pulmonary services have been consulted. Patient started on Zosyn. Sputum and blood cultures ordered. Repeat chest x-ray ordered 2. History of partial gastrectomy and Kacey-en-Y gastric bypass in 1994 3. Parenteral nutrition for reoccurring aspiration pneumonia. Patient does reports she does consume soft diet. Speech has been consulted for swallowing evaluation 4. History of aspiration pneumonia with history of prolonged hospitalization in June of this year due to gastric obstruction in which she was transferred to [facility] no surgical intervention was performed and patient was DC'd on TPN 5. History of dumping syndrome 6. Acute on chronic kidney disease stage III. Continue IV fluid 7. History of COPD 8. Chronic pain syndrome 9. Severe protein calorie malnutrition 10. Abnormal ultrasound of gallbladder. Urology service is consulted DVT prophylaxis Lovenox. GI prophylaxis Protonix Pulmonary service is consulted continue IV Zosyn Blood and sputum cultures ordered Dietary consulted for TPN Speech service is consulted for swallow evaluation Repeat labs ordered
[2020-10-11 11:40] LABS: Glucose,Whole Blood 125 mg/dL (75-99)
--- NOTE | 2020-10-11 12:37 | P.PN ---
Subjective Progress Note Date: 10/11/20 Principal diagnosis: Shortness of breath This is a 75-year-old white female patient with past medical history of aspiration pneumonia in June and patient had a prolonged hospitalization at this hospital and this was secondary to GI obstruction, history of peptic ulcer disease, with history of partial gastrectomy and Kacey-en-Y gastric bypass surgery at the [facility]. History includes chronic anemia, hypothyroidism, hyperlipidemia, migraine cephalgia, history of DVT. Following her hospitalization patient did follow up at the [facility] for the gastric obstruction at the level of the diaphragm as was noted by the barium swallow. Patient was unable to receive anything by mouth. She was started on TPN infusions. No surgical intervention was recommended, and patient continued on TPN infusions. She does state that she consumes some food by mouth, mostly soft diet, cream of wheat, and mashed potatoes. On 10/09/2020 patient comes into the emergency department with complaint of shortness of breath. Of note in the last 10 days patient had been to the emergency department 5 times with various complaints, for evaluation of generalized itching and rash, for pain medication refills, for dysuria, most recently for PICC line placement, and now for shortness of breath. Patient's chest x-ray showed bilateral patchy areas of airspace consolidation in the right midlung and in the left lower lobe, and these changes appear to be chronic however appeared slightly worse than the last exam from 07/07/2020. There was also increased interstitial infiltrate in the lower lobes compared to old exam. Patient tested negative for COVID 19, white count was 15.3, hemoglobin was 8.8, potassium 3.3, chloride is 108, the rest of electrolytes were unremarkable, BUN was 34, creatinine is 1.52, troponin was less than 0.012, AST was 58, ALT was 56, alkaline phosphatase was 278. Urinalysis showed 1+ protein, moderate leukocytes, WBCs were 4. Most recent urine culture on 10/05/2020 from the ER visit was found to be positive for E. coli. Patient was started on Levaquin, she was subsequently switched over to Rocephin. In view of elevated liver enzymes gallbladder ultrasound was completed showing liver and gallbladder within normal limits, common bile duct was within normal limits, and it was small in size right kidney with cortical thinning. On physical exam patient appears to be reading comfortably, lung sounds are clear, she has a occasional cough, with no phlegm production, no hemoptysis, no fever or chills. Patient is on room air pulse ox is 98% On 10/11/2000 patient seen in follow-up on medical surgical floor. She sits up in bed, in no acute distress, she is currently on room air with a pulse ox of 95-96%, she's been afebrile, hemodynamically patient has been stable. Appears to be breathing comfortably, no complaints of chest discomfort. Pro-calcitonin level came back at 0.53. In view of elevated creatinine, this pro-calcitonin level is not significantly elevated. Patient continues on Zosyn. Blood and urine cultures have been negative, we have been unable to collect a sputum culture. Patient continues on TPN for nutritional support, and she is on full liquid diet. She was evaluated by speech therapy, on no intravenous was repeated, bedside swallow evaluation was completed on full liquids. Full liquid diet was okay to continue per speech therapy. Repeat chest x-ray today shows bilateral airspace disease, stable in appearance. Clinically has been stable, no acute events overnight. Objective - Vital Signs Vital signs: Vital Signs Temp 98.6 F 10/11/20 07:11 Pulse 93 10/11/20 07:11 Resp 18 10/11/20 07:11 BP 126/64 10/11/20 07:11 Pulse Ox 95 10/11/20 07:11 Intake & Output 10/10/20 10/11/20 10/11/20 18:59 06:59 18:59 Intake Total 490 Balance 490 Weight 43.091 kg Intake: Intake, IV Titration 490 Amount Fat Emulsion 20% 250 ml @ 250 20.833 mls/hr IV MoWeFr@ 1800 [facility] Rx#:[id number] Mvi, Adult No.4 with Vit 240 K 10 ml Trace (Conc-1Ml/ Dose) 1 ml Potassium Phosphate 15 mmol Sodium Acetate 30 meq Magnesium Sulfate gm 1 gm Calcium Gluconate 1 gm In Amino Acid 5%-D15w 1,000 ml @ 30 mls/hr IV .Q24H ONE Rx #:[id number] Other: # Voids 1 1 - Exam GENERAL EXAM: Alert, very pleasant, 75-year-old white female, on room air with a pulse ox of 95% comfortable in no apparent distress. HEAD: Normocephalic/atraumatic. EYES: Normal reaction of pupils, equal size. Conjunctiva pink, sclera white. NOSE: Clear with pink turbinates. THROAT: No erythema or exudates. NECK: No masses, no JVD, no thyroid enlargement, no adenopathy. CHEST: No chest wall deformity. Symmetrical expansion. LUNGS: Equal air entry with no crackles, wheeze, rhonchi or dullness. CVS: Regular rate and rhythm, normal S1 and S2, no gallops, no murmurs, no rubs ABDOMEN: Soft, nontender. No hepatosplenomegaly, normal bowel sounds, no guarding or rigidity. EXTREMITIES: No clubbing, no edema, no cyanosis, 2+ pulses and upper and lower extremities. Right upper extremity PICC line in place for TPN infusion MUSCULOSKELETAL: Muscle strength and tone normal. SPINE: No scoliosis or deformity SKIN: No rashes CENTRAL NERVOUS SYSTEM: Alert and oriented -3. No focal deficits, tone is normal in all 4 extremities. PSYCHIATRIC: Alert and oriented -3. Appropriate affect. Intact judgment and insight. - Labs CBC & Chem 7: 10/10/20 09:24 10/11/20 05:29 Labs: Abnormal Lab Results - Last 24 Hours (Table) 10/10/20 10/10/20 10/10/20 Range/Units 09:24 09:24 14:41 Sodium 146 H (135-145) mmol/L Potassium 3.4 L 3.3 L (3.5-5.5) mmol/L Chloride 113 H 114 H (96-109) mmol/L Carbon Dioxide 18.3 L 21 L (21.6-31.8) mmol/L Anion Gap 14.70 H (4.00-12.00) mmol/L BUN 28.0 H 26 H (9.0-27.0) mg/dL Creatinine 1.39 H (0.52-1.04) mg/dL Est GFR (CKD-EPI)AfAm 43.1 L (60.0-200.0) Est GFR (CKD-EPI)NonAf 37.2 L (60.0-200.0) Glucose 114 H (74-99) mg/dL POC Glucose (mg/dL) (75-99) mg/dL Calcium 8.1 L 8.3 L (8.7-10.3) mg/dL Phosphorus 2.1 L (2.5-4.5) mg/dL Magnesium (1.6-2.3) mg/dL Total Bilirubin 0.1 L (0.3-1.2) mg/dL ALT 46 H (8-44) U/L Alkaline Phosphatase 285 H (41-126) U/L Total Protein 5.7 L (6.2-8.2) g/dL Albumin 3.60 L (3.80-4.90) g/dL Triglycerides 167.0 H (0.0-149.0) mg/dL Procalcitonin 0.58 H (0.02-0.09) ng/mL 10/10/20 10/10/20 10/11/20 Range/Units 16:51 20:34 05:29 Sodium (135-145) mmol/L Potassium (3.5-5.5) mmol/L Chloride 113 H (96-109) mmol/L Carbon Dioxide 21 L (21.6-31.8) mmol/L Anion Gap (4.00-12.00) mmol/L BUN 24 H (9.0-27.0) mg/dL Creatinine 1.35 H (0.52-1.04) mg/dL Est GFR (CKD-EPI)AfAm (60.0-200.0) Est GFR (CKD-EPI)NonAf (60.0-200.0) Glucose 120 H (74-99) mg/dL POC Glucose (mg/dL) 146 H 117 H (75-99) mg/dL Calcium (8.7-10.3) mg/dL Phosphorus (2.5-4.5) mg/dL Magnesium 2.5 H (1.6-2.3) mg/dL Total Bilirubin (0.3-1.2) mg/dL ALT (8-44) U/L Alkaline Phosphatase (41-126) U/L Total Protein (6.2-8.2) g/dL Albumin (3.80-4.90) g/dL Triglycerides (0.0-149.0) mg/dL Procalcitonin (0.02-0.09) ng/mL 10/11/20 10/11/20 Range/Units 06:41 11:36 Sodium (135-145) mmol/L Potassium (3.5-5.5) mmol/L Chloride (96-109) mmol/L Carbon Dioxide (21.6-31.8) mmol/L Anion Gap (4.00-12.00) mmol/L BUN (9.0-27.0) mg/dL Creatinine (0.52-1.04) mg/dL Est GFR (CKD-EPI)AfAm (60.0-200.0) Est GFR (CKD-EPI)NonAf (60.0-200.0) Glucose (74-99) mg/dL POC Glucose (mg/dL) 110 H 125 H (75-99) mg/dL Calcium (8.7-10.3) mg/dL Phosphorus (2.5-4.5) mg/dL Magnesium (1.6-2.3) mg/dL Total Bilirubin (0.3-1.2) mg/dL ALT (8-44) U/L Alkaline Phosphatase (41-126) U/L Total Protein (6.2-8.2) g/dL Albumin (3.80-4.90) g/dL Triglycerides (0.0-149.0) mg/dL Procalcitonin (0.02-0.09) ng/mL Microbiology - Last 24 Hours (Table) 10/10/20 00:15 Blood Culture - Preliminary Blood No Growth after 24 hours 10/10/20 00:30 Blood Culture - Preliminary Blood No Growth after 24 hours 10/10/20 16:17 Urine Culture - Preliminary Urine,Clean Catch Assessment and Plan Plan: Assessment: #1. Dyspnea, rule out underlying pneumonia versus chronic aspiration without infection. COVID-19 PCR was negative, chest x-ray shows chronic bilateral airspace disease with increasing interstitial infiltrates and slight worsening #2. History of aspiration pneumonia, with prolonged hospitalization in June 2020 due to gastric obstruction at the diaphragm level #3. History of partial gastrectomy , and Kacey-en-Y gastric bypass and this was done at the [facility] many years ago in 1994 #4. Parenteral nutrition for recurrent aspiration pneumonia and chronic dysphasia. Patient does take soft diet in the form of cream of wheat and mashed potatoes #5. History of dumping syndrome #6. History of COPD, currently stable #7. Remote history of DVT no longer on anticoagulation #8. History of memory impairment, patient has a legal guardian #9. Chronic pain syndrome with history of multiple back surgeries #10. Depression/anxiety #11. Chronic kidney disease stage III #12. GERD/reflux #13. Unspecified severe protein calorie malnutrition #14. Diaphragmatic hernia Plan: Clinically patient has remained stable Patient is on room air. Vital signs are stable Cultures are negative No worsening dyspnea, hypoxia, no cough or congestion Speech therapy evaluation was obtained, and full liquid diet was okay to continue She continues on TPN Today's chest x-ray has been reviewed showing stable findings of bilateral airspace disease From pulmonary perspective patient can be considered for discharge and antibiotics can be switched to Augmentin at the time of discharge Procalcitonin level not significantly elevated considering her abnormal renal function Outpatient follow-up in the office with Dr. Montilla in 10-14 days I performed a history & physical examination of the patient and discussed their management with my nurse practitioner, Brittany Garcia. I reviewed the nurse practitioner's note and agree with the documented findings and plan of care. Lung sounds are positive for diminished breath sounds. The findings and the impression was discussed with the patient. I attest to the documentation by the nurse practitioner. Time with Patient: Less than 30
[2020-10-11] MEDS: MVI, ADULT NO.4 WITH VIT K 10 ML, TRACE (CONC-1ML/DOSE) 1 ML, POTASSIUM PHOSPHATE 15 MM... IV SCH ×7 (15:27)
[2020-10-11 16:40] LABS: Glucose,Whole Blood 113 mg/dL (75-99)
[2020-10-11 21:25] LABS: Glucose,Whole Blood 149 mg/dL (75-99)
[2020-10-11] MEDS: LORATADINE 10 MG TAB PO SCH (21:26)
[2020-10-11] MEDS: MIRTAZAPINE 45 MG TABLET PO SCH (22:28)
[2020-10-12] MEDS: HYDROcodone/APAP 5-325MG 1 EACH TAB PO PRN ×4 (02:22→14:44)
[2020-10-12] MEDS: PIPERACILLIN-TAZOBACTAM 3.375 GM in SODIUM CHLORIDE 0.9% 100 ML IVPB SCH ×2 (04:00→13:15)
[2020-10-12] MEDS: LEVOTHYROXINE 88 MCG TAB PO SCH (05:42)
[2020-10-12 07:01] LABS: Glucose,Whole Blood 129 mg/dL (75-99)
[2020-10-12 07:07] LABS: Anisocytosis Slight; Basophils # (A) 0.1 k/uL (0-0.2); Basophils % (A) 1 %; Eosinophils # (A) 0.6 k/uL (0-0.7); Eosinophils % (A) 4 %; HCT 31.6 % (34.0-46.0); HGB 9.6 gm/dL (11.4-16.0); Hypochromasia Moderate; Lymphocytes # (A) 1.4 k/uL (1.0-4.8); Lymphocytes % (A) 10 %; MCH 26.3 pg (25.0-35.0); MCHC 30.3 g/dL (31.0-37.0); MCV 86.7 fL (80.0-100.0); Mean Platelet Volume 6.8; Monocytes # (A) 0.7 k/uL (0-1.0); Monocytes % (A) 5 %; Neutrophils # (A) 11.4 k/uL (1.3-7.7); Neutrophils % (A) 79 %; Platelet Count 415 k/uL (150-450); RBC 3.64 m/uL (3.80-5.40); RDW 16.6 % (11.5-15.5); WBC 14.4 k/uL (3.8-10.6)
[2020-10-12] MEDS: INSULIN ASPART (NovoLOG) 100 UNIT/ML VIAL SQ SCH ×2 (07:07→13:54)
[2020-10-12 07:23] LABS: African American GFR (CKD) 44 (>60 ml/min/1.73 sqM); Anion Gap 10 mmol/L; Blood Urea Nitrogen 29 mg/dL (7-17); Calcium 8.9 mg/dL (8.4-10.2); Carbon Dioxide 21 mmol/L (22-30); Chloride 110 mmol/L (98-107); Glucose 128 mg/dL (74-99); Magnesium 2.3 mg/dL (1.6-2.3); Non-African American GFR(CKD) 38 (>60 ml/min/1.73 sqM); Phosphorus 3.3 mg/dL (2.5-4.5); Potassium 4.9 mmol/L (3.5-5.1); Sodium 141 mmol/L (137-145)
[2020-10-12] MEDS: busPIRone HCl 10 MG TAB PO SCH (07:35)
[2020-10-12] MEDS: FUROSEMIDE 20 MG TAB PO SCH (07:35)
[2020-10-12] MEDS: hydrOXYzine pamoate 25 MG CAP PO SCH (07:35)
[2020-10-12] MEDS: PANTOPRAZOLE 40 MG TABLET PO SCH (07:35)
[2020-10-12] MEDS: DULoxetine HCL 60 MG CAPSULE.DR PO SCH (07:35)
[2020-10-12] MEDS: buPROPion XL 300 MG TAB.ER.24H PO SCH (07:36)
[2020-10-12] MEDS: POTASSIUM CHLORIDE ER 10 MEQ TAB.ER.PRT PO SCH (07:36)
[2020-10-12] MEDS: MAGNESIUM OXIDE 400 MG TAB PO SCH (07:36)
[2020-10-12] MEDS: BUTALB/APAP/CAFF 50-325-40MG TAB PO PRN (07:36)
[2020-10-12] MEDS: ENOXAPARIN 40 MG/0.4 ML SYRINGE SQ SCH (07:36)
[2020-10-12] MEDS: FERROUS SULFATE 325 MG TAB PO SCH (07:36)
[2020-10-12] MEDS: SYMBICORT 160-4.5 MCG INHALER INHALATION SCH (08:10)
[2020-10-12] MEDS: IPRATROPIUM-ALBUTEROL 3 ML NEB INHALATION SCH ×2 (08:10→11:57)
[2020-10-12] MEDS: MVI, ADULT NO.4 WITH VIT K 10 ML, TRACE (CONC-1ML/DOSE) 1 ML, POTASSIUM PHOSPHATE 15 MM... IV SCH ×7 (10:57)
[2020-10-12 11:20] LABS: Glucose,Whole Blood 128 mg/dL (75-99)
--- NOTE | 2020-10-12 12:22 | P.PN ---
Subjective Progress Note Date: 10/12/20 Principal diagnosis: Shortness of breath This is a 75-year-old white female patient with past medical history of aspiration pneumonia in June and patient had a prolonged hospitalization at this hospital and this was secondary to GI obstruction, history of peptic ulcer disease, with history of partial gastrectomy and Kacey-en-Y gastric bypass surgery at the [facility]. History includes chronic anemia, hypothyroidism, hyperlipidemia, migraine cephalgia, history of DVT. Following her hospitalization patient did follow up at the [facility] for the gastric obstruction at the level of the diaphragm as was noted by the barium swallow. Patient was unable to receive anything by mouth. She was started on TPN infusions. No surgical intervention was recommended, and patient continued on TPN infusions. She does state that she consumes some food by mouth, mostly soft diet, cream of wheat, and mashed potatoes. On 10/09/2020 patient comes into the emergency department with complaint of shortness of breath. Of note in the last 10 days patient had been to the emergency department 5 times with various complaints, for evaluation of generalized itching and rash, for pain medication refills, for dysuria, most recently for PICC line placement, and now for shortness of breath. Patient's chest x-ray showed bilateral patchy areas of airspace consolidation in the right midlung and in the left lower lobe, and these changes appear to be chronic however appeared slightly worse than the last exam from 07/07/2020. There was also increased interstitial infiltrate in the lower lobes compared to old exam. Patient tested negative for COVID 19, white count was 15.3, hemoglobin was 8.8, potassium 3.3, chloride is 108, the rest of electrolytes were unremarkable, BUN was 34, creatinine is 1.52, troponin was less than 0.012, AST was 58, ALT was 56, alkaline phosphatase was 278. Urinalysis showed 1+ protein, moderate leukocytes, WBCs were 4. Most recent urine culture on 10/05/2020 from the ER visit was found to be positive for E. coli. Patient was started on Levaquin, she was subsequently switched over to Rocephin. In view of elevated liver enzymes gallbladder ultrasound was completed showing liver and gallbladder within normal limits, common bile duct was within normal limits, and it was small in size right kidney with cortical thinning. On physical exam patient appears to be reading comfortably, lung sounds are clear, she has a occasional cough, with no phlegm production, no hemoptysis, no fever or chills. Patient is on room air pulse ox is 98% On 10/11/2000 patient seen in follow-up on medical surgical floor. She sits up in bed, in no acute distress, she is currently on room air with a pulse ox of 95-96%, she's been afebrile, hemodynamically patient has been stable. Appears to be breathing comfortably, no complaints of chest discomfort. Pro-calcitonin level came back at 0.53. In view of elevated creatinine, this pro-calcitonin level is not significantly elevated. Patient continues on Zosyn. Blood and urine cultures have been negative, we have been unable to collect a sputum culture. Patient continues on TPN for nutritional support, and she is on full liquid diet. She was evaluated by speech therapy, on no intravenous was repeated, bedside swallow evaluation was completed on full liquids. Full liquid diet was okay to continue per speech therapy. Repeat chest x-ray today shows bilateral airspace disease, stable in appearance. Clinically has been stable, no acute events overnight. On 10/12/2020 patient seen in follow-up on medical surgical floor, awake and alert, in no acute distress, she sits up on the edge of the bed, room air pulse ox is 96-97%, she is afebrile, breathing is nonlabored, occasional cough, no significant , no chest discomfort, no significant phlegm production, no altered mentation, patient remains on TPN, she is tolerating full liquid diet. She has been evaluated by speech therapy, no ABS was repeated, however patient was cleared to continue with the current diet. She has been afebrile, vital signs have been stable overnight. Follow-up chest x-ray yesterday showed bilateral airspace disease, and blunting of the left costophrenic angle consistent with left pleural effusion. It was stable, remains on Zosyn for empiric antibiotic coverage. Her blood and urine cultures have been negative, today's labs have been reviewed. Her white count today is 14.4, hemoglobin is 9.6, platelet count is 415, sodium is 141, potassium is 4.9, chloride is 110, CO2 21, B1 is 29 cr eatinine is 1.37. Objective - Vital Signs Vital signs: Vital Signs Temp 97.9 F 10/12/20 07:57 Pulse 86 10/12/20 12:05 Resp 18 10/12/20 07:57 BP 115/69 10/12/20 07:57 Pulse Ox 96 10/12/20 07:57 Intake & Output 10/11/20 10/12/20 10/12/20 18:59 06:59 18:59 Intake Total 490 1043 Balance 490 1043 Weight 48.4 kg Intake: Intake, IV Titration 490 1043 Amount Fat Emulsion 20% 250 ml @ 250 20.833 mls/hr IV MoWeFr@ 1800 [facility], [facility] Rx#:[id number] Mvi, Adult No.4 with Vit 240 K 10 ml Trace (Conc-1Ml/ Dose) 1 ml Potassium Phosphate 15 mmol Sodium Acetate 30 meq Magnesium Sulfate gm 1 gm Calcium Gluconate 1 gm In Amino Acid 5%-D15w 1,000 ml @ 30 mls/hr IV .Q24H ONE Rx #:[id number] Mvi, Adult No.4 with Vit 1043 K 10 ml Trace (Conc-1Ml/ Dose) 1 ml Potassium Phosphate 15 mmol Sodium Acetate 30 meq Magnesium Sulfate gm 1 gm Calcium Gluconate 1 gm In Amino Acid 5%-D15w 1,000 ml @ 55 mls/hr IV .[id number] [facility], [facility] Rx#:[id number] Other: # Voids 4 - Exam GENERAL EXAM: Alert, very pleasant, 75-year-old white female, on room air with a pulse ox of 95% comfortable in no apparent distress. HEAD: Normocephalic/atraumatic. EYES: Normal reaction of pupils, equal size. Conjunctiva pink, sclera white. NOSE: Clear with pink turbinates. THROAT: No erythema or exudates. NECK: No masses, no JVD, no thyroid enlargement, no adenopathy. CHEST: No chest wall deformity. Symmetrical expansion. LUNGS: Equal air entry with no crackles, wheeze, rhonchi or dullness. CVS: Regular rate and rhythm, normal S1 and S2, no gallops, no murmurs, no rubs ABDOMEN: Soft, nontender. No hepatosplenomegaly, normal bowel sounds, no guarding or rigidity. EXTREMITIES: No clubbing, no edema, no cyanosis, 2+ pulses and upper and lower extremities. Right upper extremity PICC line in place for TPN infusion MUSCULOSKELETAL: Muscle strength and tone normal. SPINE: No scoliosis or deformity SKIN: No rashes CENTRAL NERVOUS SYSTEM: Alert and oriented -3. No focal deficits, tone is normal in all 4 extremities. PSYCHIATRIC: Alert and oriented -3. Appropriate affect. Intact judgment and insight. - Labs CBC & Chem 7: 10/12/20 06:20 10/12/20 06:20 Labs: Abnormal Lab Results - Last 24 Hours (Table) 10/11/20 10/11/20 10/12/20 Range/Units 16:37 21:24 06:20 WBC (3.8-10.6) k/uL RBC (3.80-5.40) m/uL Hgb (11.4-16.0) gm/dL Hct (34.0-46.0) % MCHC (31.0-37.0) g/dL RDW (11.5-15.5) % Neutrophils # (1.3-7.7) k/uL Chloride 110 H (98-107) mmol/L Carbon Dioxide 21 L (22-30) mmol/L BUN 29 H (7-17) mg/dL Creatinine 1.37 H (0.52-1.04) mg/dL Glucose 128 H (74-99) mg/dL POC Glucose (mg/dL) 113 H 149 H (75-99) mg/dL 10/12/20 10/12/20 10/12/20 Range/Units 06:20 07:00 11:19 WBC 14.4 H (3.8-10.6) k/uL RBC 3.64 L (3.80-5.40) m/uL Hgb 9.6 L (11.4-16.0) gm/dL Hct 31.6 L (34.0-46.0) % MCHC 30.3 L (31.0-37.0) g/dL RDW 16.6 H (11.5-15.5) % Neutrophils # 11.4 H (1.3-7.7) k/uL Chloride (98-107) mmol/L Carbon Dioxide (22-30) mmol/L BUN (7-17) mg/dL Creatinine (0.52-1.04) mg/dL Glucose (74-99) mg/dL POC Glucose (mg/dL) 129 H 128 H (75-99) mg/dL Microbiology - Last 24 Hours (Table) 10/10/20 00:15 Blood Culture - Preliminary Blood No Growth after 48 hours 10/10/20 00:30 Blood Culture - Preliminary Blood No Growth after 48 hours 10/10/20 16:17 Urine Culture - Final Urine,Clean Catch Assessment and Plan Plan: Assessment: #1. Dyspnea, rule out underlying pneumonia versus chronic aspiration without infection. COVID-19 PCR was negative, chest x-ray shows chronic bilateral airspace disease with increasing interstitial infiltrates and slight worsening #2. History of aspiration pneumonia, with prolonged hospitalization in June 2020 due to gastric obstruction at the diaphragm level #3. History of partial gastrectomy , and Kacey-en-Y gastric bypass and this was done at the [facility] many years ago in 1994 #4. Parenteral nutrition for recurrent aspiration pneumonia and chronic dysphasia. Patient does take soft diet in the form of cream of wheat and mashed potatoes #5. History of dumping syndrome #6. History of COPD, currently stable #7. Remote history of DVT no longer on anticoagulation #8. History of memory impairment, patient has a legal guardian #9. Chronic pain syndrome with history of multiple back surgeries #10. Depression/anxiety #11. Chronic kidney disease stage III #12. GERD/reflux #13. Unspecified severe protein calorie malnutrition #14. Diaphragmatic hernia Plan: Patient has remained stable overnight No worsening dyspnea or hypoxia Her IV Zosyn may be switched to Augmentin at the time of discharge and she can finish outpatient course of oral antibiotics for another 7 days Full liquid diet was okay to continue per speech therapy We do however suspect chronic aspiration related to esophageal stage dysphagia, and obstruction at the level of diaphragm related to history of gastrectomy, hiatal hernia. Patient will continue on TPN at home She was told that the [facility] there was no surgical intervention possible to repair her chronic issues with chronic aspiration We recommended she may consider following up with Dr. Roa at [facility] for a second opinion to see if there is any thing else can be done to help her with chronic aspiration and esophageal obstruction Otherwise stable for discharge home from pulmonary perspective She will need outpatient follow-up with Dr. Montilla in the office in 7-10 days I performed a history & physical examination of the patient and discussed their management with my nurse practitioner, Brittany Garcia. I reviewed the nurse practitioner's note and agree with the documented findings and plan of care. Lung sounds are positive for diminished breath sounds. The findings and the impression was discussed with the patient. I attest to the documentation by the nurse practitioner. Time with Patient: Less than 30
[2020-10-12 14:09] VITALS: BMI 19.5
[2020-10-12 15:02] VITALS: BP 113/65; PULSE 94; RESP 17; TEMP 98
--- NOTE | 2020-10-17 13:21 | P.DS ---
Providers Date of admission: 10/10/20 00:17 Expected date of discharge: 10/12/20 Attending physician: Palmer Desir Consults: 10/10/20 09:06 Consult Physician Routine Consulting Provider: Ortiz Hernandez Consult Reason/Comments: pneumonia Do you want consulting provider notified?: Yes 10/10/20 12:06 Consult Physician Routine Consulting Provider: Gee Reed Consult Reason/Comments: abdnormal ultrasound Do you want consulting provider notified?: Yes Primary care physician: Ale Eli Hospital Course: Discharge diagnosis 1. Shortness of breath secondary to bilateral pneumonia. Pulmonary services have been consulted. Patient started on Zosyn. Sputum and blood cultures ordered. Repeat chest x-ray ordered 2. History of partial gastrectomy and Kacey-en-Y gastric bypass in 1994 3. Parenteral nutrition for reoccurring aspiration pneumonia. Patient does reports she does consume soft diet. Speech has been consulted for swallowing evaluation 4. History of aspiration pneumonia with history of prolonged hospitalization in June of this year due to gastric obstruction in which she was transferred to [facility] no surgical intervention was performed and patient was DC'd on TPN 5. History of dumping syndrome 6. Acute on chronic kidney disease stage III. Continue IV fluid 7. History of COPD 8. Chronic pain syndrome 9. Severe protein calorie malnutrition 10. Abnormal ultrasound of gallbladder. Hospital course This is a 75-year-old female patient of Dr. Eli. Patient presented to the ER with complaints of generalized weakness and increased congestion and shortness of breath over the past few days. Patient has a past medical history of gastrectomy in which she was recently treated at [facility] for possible obstruction was started on TPN in which she currently is maintained, previous episodes of aspiration pneumonia, peptic ulcer disease, pancreatitis, chronic kidney disease stage III, chronic pain. Chest x-ray was completed showing bilateral pneumonia which is chronic and slowly worsen last exam there is increasing interstitial infiltrate in the lower lobes compared to old exam no definitive heart failure. White blood cell is elevated 15.3. Creatinine 1.5 to bun 34. Patient does state she does consume food by mouth mostly soft diet. COVID-19 was negative. At this time patient has been started on IV antibiotics blood culture ordered. Sputum culture ordered. Pulmonary service is consulted. Patient denies chest pain. Patient denies nausea vomiting or diarrhea. Patient denies any urinary burning or frequency. On 10/11/2020 patient is alert and oriented 3. Maintained on IV antibiotics Zosyn. Repeat chest x-ray ordered. Patient remains on TPN attritional services following. Patient reports some improvement with shortness of breath. Patient denies chest pain. Patient denies nausea vomiting or diarrhea. Patient denies any urinary burning or frequency. Temp 98.6. Heart rate 93. Respiratory rate 18. Blood pressure 126/64. Oxygen saturation 95% on room air On 10/12/2020 patient is alert and no in-stent 3. Patient has been switched from IV Zosyn to Augmentin. Full liquid diet okay to continue per speech therapy. Patient cleared for discharge from pulmonary standpoint to follow up with pulmonary services in 7-10 days. Patient discharged on [place] and Augmentin. Patient to follow-up with PCP and pulmonary services for further management Patient Condition at Discharge: Stable Plan - Discharge Summary Discharge Rx Participant: No New Discharge Prescriptions: New HYDROcodone/APAP 5-325MG [[place] 5] 1 each PO Q6HR PRN #12 tab PRN Reason: pain Amoxicillin/Potassium Clav [Augmentin 500-125 Tablet] 1 tab PO Q12HR 10 Days #20 tab Continue DULoxetine HCL [Cymbalta] 60 mg PO DAILY Ferrous Sulfate [Iron (65 MG Elemental)] 325 mg PO DAILY Levocetirizine Dihydrochloride [Xyzal] 5 mg PO HS calcitrioL [Calcitriol] 1 mcg PO MOWEFR Levothyroxine Sodium [Synthroid] 88 mcg PO DAILY Albuterol Inhaler [Ventolin Hfa Inhaler] 1 puff INHALATION RT-Q6H PRN PRN Reason: Shortness Of Breath busPIRone HCL [Buspar] 30 mg PO BID hydrOXYzine pamoate [hydrOXYzine PAMOATE] 25 mg PO TID Potassium Chloride ER [K-Dur 10] 10 meq PO TID HYDROcodone/APAP 5-325MG [[place] 5-325] 1 tab PO BID PRN PRN Reason: Migraine Headache Pantoprazole Sodium [Protonix] 40 mg PO BID 30 Days #60 tablet. fentaNYL 75MCG/HR PATCH [Duragesic 75MCG/HR] 1 patch TRANSDERM Q72H Budesonide/Formoterol Fumarate [Symbicort 160-4.5 Mcg Inhaler] 2 puff INHALATION RT-BID Butalb/APAP/Caff 50-325-40Mg [Fioricet 50-325-40] 1 tab PO BID PRN PRN Reason: Migraine Headache Fluticasone Nasal [place] [Flonase Nasal [place]] 1 spray EA NOSTRIL DAILY PRN PRN Reason: Allergy Symptoms Furosemide [Lasix] 20 mg PO DAILY Mirtazapine 45 mg PO HS SUMAtriptan SUCCINATE [Imitrex] 50 mg PO DAILY PRN PRN Reason: Migraine Headache buPROPion XL [Wellbutrin XL] 300 mg PO DAILY #3 tab.er.24h Magnesium Oxide 400 mg PO DAILY Discontinued Cephalexin [Keflex] 500 mg PO Q6HR 10 Days #40 cap Discharge Medication List DULoxetine HCL [Cymbalta] 60 mg PO DAILY 09/17/13 [History] Ferrous Sulfate [Iron (65 MG Elemental)] 325 mg PO DAILY 11/06/15 [History] Levocetirizine Dihydrochloride [Xyzal] 5 mg PO HS 05/31/17 [History] Levothyroxine Sodium [Synthroid] 88 mcg PO DAILY 06/07/19 [History] calcitrioL [Calcitriol] 1 mcg PO MOWEFR 06/07/19 [History] Albuterol Inhaler [Ventolin Hfa Inhaler] 1 puff INHALATION RT-Q6H PRN 10/05/19 [History] busPIRone HCL [Buspar] 30 mg PO BID 04/14/20 [History] HYDROcodone/APAP 5-325MG [[place] 5-325] 1 tab PO BID PRN 04/18/20 [History] Potassium Chloride ER [K-Dur 10] 10 meq PO TID 04/18/20 [History] hydrOXYzine pamoate [hydrOXYzine PAMOATE] 25 mg PO TID 04/18/20 [History] Pantoprazole Sodium [Protonix] 40 mg PO BID 30 Days #60 tablet. 04/27/20 [Rx] Budesonide/Formoterol Fumarate [Symbicort 160-4.5 Mcg Inhaler] 2 puff INHALATION RT-BID 06/30/20 [History] Butalb/APAP/Caff 50-325-40Mg [Fioricet 50-325-40] 1 tab PO BID PRN 06/30/20 [History] Fluticasone Nasal [place] [Flonase Nasal [place]] 1 spray EA NOSTRIL DAILY PRN 06/30/20 [History] Furosemide [Lasix] 20 mg PO DAILY 06/30/20 [History] Mirtazapine 45 mg PO HS 06/30/20 [History] SUMAtriptan SUCCINATE [Imitrex] 50 mg PO DAILY PRN 06/30/20 [History] fentaNYL 75MCG/HR PATCH [Duragesic 75MCG/HR] 1 patch TRANSDERM Q72H 06/30/20 [History] buPROPion XL [Wellbutrin XL] 300 mg PO DAILY #3 tab.er.24h 09/30/20 [Rx] Magnesium Oxide 400 mg PO DAILY 10/09/20 [History] Amoxicillin/Potassium Clav [Augmentin 500-125 Tablet] 1 tab PO Q12HR 10 Days #20 tab 10/12/20 [Rx] HYDROcodone/APAP 5-325MG [[place] 5] 1 each PO Q6HR PRN #12 tab 10/12/20 [Rx] Follow up Appointment(s)/Referral(s): Ortiz Hernandez MD [STAFF PHYSICIAN] - 11/02/20 3:00 pm Ale Eli MD [Primary Care Provider] - 1-2 days (Office closed. Please call office Thursday for appointment.) Scooter [facility], [NON-STAFF] - Patient Instructions/Handouts: Community Acquired Pneumonia (DC) Activity/Diet/Wound Care/Special Instructions: Continue TPN through [facility] as before - [phone] Discharge Disposition: HOME SELF-CARE
== END 2020-10-12 15:17 | disposition home or self-care (01) | DRG 193 ==
LOC: EC 21:34 → 4SSUR 10-10 00:17
PROVIDERS: ADMIT Internal Medicine; ATTEND Internal Medicine
PROC: 3E0336Z Introduction of Nutritional Substance into Peripheral Vein, Percutaneous Approach (ICD-10-PCS; principal; 2020-10-10)
DX: J18.9 Pneumonia, unspecified organism (principal); E43 Unspecified severe protein-calorie malnutrition; N17.9 Acute kidney failure, unspecified; J44.0 Chronic obstructive pulmonary disease with (acute) lower respiratory infection; N12 Tubulo-interstitial nephritis, not specified as acute or chronic; Z68.1 Body mass index [BMI] 19.9 or less, adult; K86.1 Other chronic pancreatitis; Z20.822 Contact with and (suspected) exposure to COVID-19; K21.9 Gastro-esophageal reflux disease without esophagitis; N18.30 Chronic kidney disease, stage 3 unspecified; G89.4 Chronic pain syndrome; G43.909 Migraine, unspecified, not intractable, without status migrainosus; K59.00 Constipation, unspecified; M48.00 Spinal stenosis, site unspecified; S02.2XXA Fracture of nasal bones, initial encounter for closed fracture; J45.909 Unspecified asthma, uncomplicated; E03.9 Hypothyroidism, unspecified; E78.5 Hyperlipidemia, unspecified; G31.84 Mild cognitive impairment of uncertain or unknown etiology; F41.0 Panic disorder [episodic paroxysmal anxiety]; F32.9 Major depressive disorder, single episode, unspecified; K44.9 Diaphragmatic hernia without obstruction or gangrene; D64.9 Anemia, unspecified; E86.0 Dehydration; L29.9 Pruritus, unspecified; R21 Rash and other nonspecific skin eruption; R47.02 Dysphasia; Z79.899 Other long term (current) drug therapy; Z79.890 Hormone replacement therapy; Z79.51 Long term (current) use of inhaled steroids; Z90.3 Acquired absence of stomach [part of]; Z86.73 Personal history of transient ischemic attack (TIA), and cerebral infarction without residual deficits; Z87.11 Personal history of peptic ulcer disease; Z87.01 Personal history of pneumonia (recurrent); K91.1 Postgastric surgery syndromes; Z98.84 Bariatric surgery status; Z86.718 Personal history of other venous thrombosis and embolism; Z82.49 Family history of ischemic heart disease and other diseases of the circulatory system; Z88.8 Allergy status to other drugs, medicaments and biological substances; Z87.19 Personal history of other diseases of the digestive system
CPT/HCPCS: 36415; 71046; 76705; 80048; 80053; 81001; 82330; 82550; 83735; 84100; 84145; 84478; 84484; 85025; 87040; 87086; 87635; 94640; 96365; 96367; 99285

== ENCOUNTER 2020-10-19 22:28 | Emergency (ER) | payer MEDICARE, OTHER ==
[2020-10-19 22:35] VITALS: TEMP 97.9
--- NOTE | 2020-10-19 23:19 | XR ---
EXAMINATION TYPE: XR chest 2V DATE OF EXAM: 10/19/2020 COMPARISON: 10/11/2020 HISTORY: Short of breath. Cough. Pneumonia. TECHNIQUE: 3 views FINDINGS: There are patchy areas of airspace consolidation in the mid lung calixto bilaterally. There is no heart failure. Heart size is normal. There is no sign of pleural effusion. Mediastinum is moon l. Trachea deviated slightly to the right side consistent with some degree of atelectasis in the righ t upper lobe. IMPRESSION: Bilateral pneumonic consolidation with also some atelectasis right upper lobe. Chest x-ra y is improved slightly compared to last exam. There is clearing of the small left pleural effusion co mpared to last exam.
[2020-10-19] MEDS ORDERED: MORPHINE SULFATE 2 MG/ML SYRINGE IV STA (23:25)
[2020-10-20 00:02] LABS: Anisocytosis Slight; Basophils # (A) 0.1 k/uL (0-0.2); Basophils % (A) 1 %; Eosinophils # (A) 0.7 k/uL (0-0.7); Eosinophils % (A) 4 %; HCT 31.4 % (34.0-46.0); HGB 9.9 gm/dL (11.4-16.0); Hypochromasia Moderate; Lymphocytes # (A) 2.1 k/uL (1.0-4.8); Lymphocytes % (A) 12 %; MCH 26.8 pg (25.0-35.0); MCHC 31.6 g/dL (31.0-37.0); Mean Platelet Volume 6.9; Monocytes # (A) 0.5 k/uL (0-1.0); Monocytes % (A) 3 %; Neutrophils # (A) 13.6 k/uL (1.3-7.7); Neutrophils % (A) 79 %; Platelet Count 566 k/uL (150-450); RDW 16.8 % (11.5-15.5); WBC 17.3 k/uL (3.8-10.6)
[2020-10-20 00:15] LABS: Albumin 3.9 g/dL (3.5-5.0); Calcium 9.2 mg/dL (8.4-10.2); Potassium 3.5 mmol/L (3.5-5.1); Total Bilirubin 0.2 mg/dL (0.2-1.3); Total Protein 6.8 g/dL (6.3-8.2)
[2020-10-20] MEDS ORDERED: HYDROmorphone 1 MG/ML 1 ML SYRINGE IVP STA (01:59)
[2020-10-20 02:12] VITALS: BP 137/68; PULSE 87; RESP 18
--- NOTE | 2020-10-20 02:17 | ED ---
Nausea/Vomiting/Diarrhea HPI - General Chief complaint: Nausea/Vomiting/Diarrhea Stated complaint: Diarrhea Time Seen by Provider: 10/19/20 22:41 Source: patient Mode of arrival: ambulatory Limitations: no limitations - History of Present Illness Initial comments: This patient is a 75-year-old woman who presents with 2 concerns. One she was having some cough, and was concerned that she may have aspirated somewhat while she was sleeping. Patient did have some recent aspiration with pneumonia and had been here in the hospital. Patient has not had any fever or chills. The cough has not been productive of sputum. The patient is not having chest pain or dyspnea. The patient also has been having more bowel movements than his usual. She was having some watery bowel movements that had occurred after taking TPN. She was concerned because previously she has been anemic following this. She has not had blood or tarry bowel movements. No abdominal pain. No vomiting. MD complaint: diarrhea Onset/Timin -: days(s) Description of Diarrhea: water Associated Abdominal Pain: No Severity scale (1-10): 0 Improves with: none Worsens with: none Associated Symptoms: cough - Related Data Home Medications Medication Instructions Recorded Confirmed DULoxetine HCL [Cymbalta] 60 mg PO DAILY 09/17/13 10/09/20 Ferrous Sulfate [Iron (65 MG 325 mg PO DAILY 11/06/15 10/09/20 Elemental)] Levocetirizine Dihydrochloride 5 mg PO HS 05/31/17 10/09/20 [Xyzal] Levothyroxine Sodium [Synthroid] 88 mcg PO DAILY 06/07/19 10/09/20 calcitrioL [Calcitriol] 1 mcg PO MOWEFR 06/07/19 10/09/20 Albuterol Inhaler [Ventolin Hfa 1 puff INHALATION RT-Q6H PRN 10/05/19 10/09/20 Inhaler] busPIRone HCL [Buspar] 30 mg PO BID 04/14/20 10/09/20 HYDROcodone/APAP 5-325MG [[place] 1 tab PO BID PRN 04/18/20 10/09/20 5-325] Potassium Chloride ER [K-Dur 10] 10 meq PO TID 04/18/20 10/09/20 hydrOXYzine pamoate [hydrOXYzine 25 mg PO TID 04/18/20 10/09/20 PAMOATE] Budesonide/Formoterol Fumarate 2 puff INHALATION RT-BID 06/30/20 10/09/20 [Symbicort 160-4.5 Mcg Inhaler] Butalb/APAP/Caff 50-325-40Mg 1 tab PO BID PRN 06/30/20 10/09/20 [Fioricet 50-325-40] Fluticasone Nasal [place] [Flonase 1 spray EA NOSTRIL DAILY PRN 06/30/20 10/09/20 Nasal [place]] Furosemide [Lasix] 20 mg PO DAILY 06/30/20 10/09/20 Mirtazapine 45 mg PO HS 06/30/20 10/09/20 SUMAtriptan SUCCINATE [Imitrex] 50 mg PO DAILY PRN 06/30/20 10/09/20 fentaNYL 75MCG/HR PATCH [Duragesic 1 patch TRANSDERM Q72H 06/30/20 10/09/20 75MCG/HR] Magnesium Oxide 400 mg PO DAILY 10/09/20 10/09/20 Previous Rx's Medication Instructions Recorded Pantoprazole Sodium [Protonix] 40 mg PO BID 30 Days #60 tablet. 04/27/20 buPROPion XL [Wellbutrin XL] 300 mg PO DAILY #3 tab.er.24h 09/30/20 Amoxicillin/Potassium Clav 1 tab PO Q12HR 10 Days #20 tab 10/12/20 [Augmentin 500-125 Tablet] HYDROcodone/APAP 5-325MG [[place] 5] 1 each PO Q6HR PRN #12 tab 10/12/20 Allergies Allergy/AdvReac Type Severity Reaction Status Date / Time denosumab [From Prolia] Allergy SEVERE Verified 10/19/20 22:33 CALCIUM LOSS DUST Allergy Itching Uncoded 10/19/20 22:33 MOLDS Allergy Itching Uncoded 10/19/20 22:33 Review of Systems ROS Statement: Those systems with pertinent positive or pertinent negative responses have been documented in the HPI. ROS Other: All systems not noted in ROS Statement are negative. Constitutional: Denies: fever, chills Respiratory: Reports: as per HPI, cough. Denies: dyspnea, wheezes, hemoptysis, stridor Cardiovascular: Denies: chest pain, palpitations, orthopnea, edema Gastrointestinal: Reports: diarrhea. 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 History of Any Multi-Drug Resistant Organisms: None Reported Past Surgical History: Back Surgery, Bowel Resection Additional Past Surgical History / Comment(s): LOWER BACK SURGERY lamenectomy/discetomy then had a revison of that sx. 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, nasal sx d/t broken nose, colonoscopy/egd, PAIN CLINIC PROCEDURES Past Anesthesia/Blood Transfusion Reactions: No Reported Reaction Additional Past Anesthesia/Blood Transfusion Reaction / Comment(s): PT RECIEVED BLOOD TRANSFUSIONS AFTER STOMACH SURGERY Past Psychological History: Anxiety, Depression, Panic Disorder Smoking Status: Never smoker Past Alcohol Use History: None Reported Past Drug Use History: None Reported - Past Family History Father Family Medical History: Cancer, Coronary Artery Disease (CAD) Additional Family Medical History / Comment(s): FATHER HAD BLADDER AND KIDNEY CANCER. FATHER HAD TB WHEN HE WAS A CHILD .FATHER AT AGE 87. Mother Family Medical History: Cancer Additional Family Medical History / Comment(s): MOTHER AT AGE 58 OF OVARIAN CANCER. General Exam Limitations: no limitations General appearance: alert, in no apparent distress Head exam: Present: atraumatic, normocephalic Eye exam: Present: normal appearance. Absent: scleral icterus, conjunctival injection ENT exam: Present: normal oropharynx Neck exam: Present: normal inspection Respiratory exam: Present: rales. Absent: respiratory distress, wheezes, rhonchi, stridor, chest wall tenderness, accessory muscle use, decreased breath sounds Cardiovascular Exam: Present: regular rate, normal rhythm, normal heart sounds. Absent: systolic murmur, diastolic murmur, rubs, gallop GI/Abdominal exam: Present: soft. Absent: distended, tenderness, guarding, rebound, rigid, mass Extremities exam: Present: normal inspection, normal capillary refill. Absent: pedal edema, calf tenderness Back exam: Present: normal inspection. Absent: CVA tenderness (R), CVA tenderness (L) Neurological exam: Present: alert Skin exam: Present: warm, dry, intact, normal color. Absent: rash Course Vital Signs 10/19/20 10/20/20 22:31 02:12 Temperature 97.9 F Pulse Rate 99 87 Respiratory 16 18 Rate Blood Pressure 162/87 137/68 O2 Sat by Pulse 95 97 Oximetry Medical Decision Making - Medical Decision Making Patient is 75-year-old woman on chronic TPN following gastrectomy. The patient's chest x-ray today does appear improved versus her previous x-ray, and there is no exam finding at this point suggesting worsening of aspiration. No fever or chills. No dyspnea. Sats are normal. The patient's diarrhea appears to be controlled at this point. She has not had any further bowel movements. Patient's hemoglobin is stable. She has had good relief of her symptoms with medication here and does wish to go home and follow-up. We discussed appropriate return parameters, further care and follow-up. - Lab Data Result diagrams: 10/19/20 23:42 10/19/20 23:42 Lab Results 10/19/20 10/19/20 Range/Units 23:42 23:42 WBC 17.3 H (3.8-10.6) k/uL RBC 3.70 L (3.80-5.40) m/uL Hgb 9.9 L (11.4-16.0) gm/dL Hct 31.4 L (34.0-46.0) % MCV 85.0 (80.0-100.0) fL MCH 26.8 (25.0-35.0) pg MCHC 31.6 (31.0-37.0) g/dL RDW 16.8 H (11.5-15.5) % Plt Count 566 H (150-450) k/uL MPV 6.9 Neutrophils % 79 % Lymphocytes % 12 % Monocytes % 3 % Eosinophils % 4 % Basophils % 1 % Neutrophils # 13.6 H (1.3-7.7) k/uL Lymphocytes # 2.1 (1.0-4.8) k/uL Monocytes # 0.5 (0-1.0) k/uL Eosinophils # 0.7 (0-0.7) k/uL Basophils # 0.1 (0-0.2) k/uL Hypochromasia Moderate Anisocytosis Slight Sodium 139 (137-145) mmol/L Potassium 3.5 (3.5-5.1) mmol/L Chloride 104 (98-107) mmol/L Carbon Dioxide 23 (22-30) mmol/L Anion Gap 12 mmol/L BUN 30 H (7-17) mg/dL Creatinine 1.59 H (0.52-1.04) mg/dL Est GFR (CKD-EPI)AfAm 37 (>60 ml/min/1.73 sqM) Est GFR (CKD-EPI)NonAf 32 (>60 ml/min/1.73 sqM) Glucose 103 H (74-99) mg/dL Calcium 9.2 (8.4-10.2) mg/dL Total Bilirubin 0.2 (0.2-1.3) mg/dL AST 25 (14-36) U/L ALT 21 (4-34) U/L Alkaline Phosphatase 315 H (38-126) U/L Total Protein 6.8 (6.3-8.2) g/dL Albumin 3.9 (3.5-5.0) g/dL Disposition Clinical Impression: Diarrhea Disposition: HOME SELF-CARE Condition: Good Instructions (If sedation given, give patient instructions): Acute Diarrhea (ED) Is patient prescribed a controlled substance at d/c from ED?: No Referrals: Ale Eli MD [Primary Care Provider] - 1-2 days
== END 2020-10-20 02:49 | disposition home or self-care (01) ==
LOC: EC 22:28
DX: R19.7 Diarrhea, unspecified (principal); R05 Cough; J45.909 Unspecified asthma, uncomplicated; Z79.51 Long term (current) use of inhaled steroids; Z79.899 Other long term (current) drug therapy; Z86.73 Personal history of transient ischemic attack (TIA), and cerebral infarction without residual deficits; Z88.8 Allergy status to other drugs, medicaments and biological substances; Z91.048 Other nonmedicinal substance allergy status
CPT/HCPCS: 36415; 80053; 85025; 71046; 99284; 96374; 96375; J2270; J1170

== ENCOUNTER 2020-10-21 17:36 | Emergency (ER) | payer MEDICARE, OTHER ==
--- NOTE | 2020-10-21 18:29 | ED ---
General Adult HPI - General Chief complaint: Abdominal Pain Stated complaint: withdraws Time Seen by Provider: 10/21/20 18:20 Source: patient, RN notes reviewed, old records reviewed Mode of arrival: ambulatory Limitations: no limitations - History of Present Illness Initial comments: 75-year-old female history of chronic pain preventing for medication refill. Patient states that she lost her fentanyl patch. She wears a 75 g fentanyl patch. She states that over the past several days she's had increased diarrhea and some abdominal pain. She was seen in the emergency department for this several days ago. She states that her diarrhea has improved and her pain is resolved. She states that with the excess toileting she did lose her fentanyl patch. She has no new complaints other than requesting a refill patch until Thursday. She is presenting on Thursday. She states she will get her medications refilled on Thursday which are delivered by her pharmacy. - Related Data Home Medications Medication Instructions Recorded Confirmed DULoxetine HCL [Cymbalta] 60 mg PO DAILY 09/17/13 10/09/20 Ferrous Sulfate [Iron (65 MG 325 mg PO DAILY 11/06/15 10/09/20 Elemental)] Levocetirizine Dihydrochloride 5 mg PO HS 05/31/17 10/09/20 [Xyzal] Levothyroxine Sodium [Synthroid] 88 mcg PO DAILY 06/07/19 10/09/20 calcitrioL [Calcitriol] 1 mcg PO MOWEFR 06/07/19 10/09/20 Albuterol Inhaler [Ventolin Hfa 1 puff INHALATION RT-Q6H PRN 10/05/19 10/09/20 Inhaler] busPIRone HCL [Buspar] 30 mg PO BID 04/14/20 10/09/20 HYDROcodone/APAP 5-325MG [[place] 1 tab PO BID PRN 04/18/20 10/09/20 5-325] Potassium Chloride ER [K-Dur 10] 10 meq PO TID 04/18/20 10/09/20 hydrOXYzine pamoate [hydrOXYzine 25 mg PO TID 04/18/20 10/09/20 PAMOATE] Budesonide/Formoterol Fumarate 2 puff INHALATION RT-BID 06/30/20 10/09/20 [Symbicort 160-4.5 Mcg Inhaler] Butalb/APAP/Caff 50-325-40Mg 1 tab PO BID PRN 06/30/20 10/09/20 [Fioricet 50-325-40] Fluticasone Nasal [place] [Flonase 1 spray EA NOSTRIL DAILY PRN 06/30/20 10/09/20 Nasal [place]] Furosemide [Lasix] 20 mg PO DAILY 06/30/20 10/09/20 Mirtazapine 45 mg PO HS 06/30/20 10/09/20 SUMAtriptan SUCCINATE [Imitrex] 50 mg PO DAILY PRN 06/30/20 10/09/20 fentaNYL 75MCG/HR PATCH [Duragesic 1 patch TRANSDERM Q72H 06/30/20 10/09/20 75MCG/HR] Magnesium Oxide 400 mg PO DAILY 10/09/20 10/09/20 Previous Rx's Medication Instructions Recorded Pantoprazole Sodium [Protonix] 40 mg PO BID 30 Days #60 tablet. 04/27/20 buPROPion XL [Wellbutrin XL] 300 mg PO DAILY #3 tab.er.24h 09/30/20 Amoxicillin/Potassium Clav 1 tab PO Q12HR 10 Days #20 tab 10/12/20 [Augmentin 500-125 Tablet] HYDROcodone/APAP 5-325MG [[place] 5] 1 each PO Q6HR PRN #12 tab 10/12/20 Allergies Allergy/AdvReac Type Severity Reaction Status Date / Time denosumab [From Prolia] Allergy SEVERE Verified 10/21/20 17:49 CALCIUM LOSS DUST Allergy Itching Uncoded 10/21/20 17:49 MOLDS Allergy Itching Uncoded 10/21/20 17:49 Review of Systems ROS Statement: Those systems with pertinent positive or pertinent negative responses have been documented in the HPI. ROS Other: All systems not noted in ROS Statement are negative. 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 History of Any Multi-Drug Resistant Organisms: None Reported Past Surgical History: Back Surgery, Bowel Resection Additional Past Surgical History / Comment(s): LOWER BACK SURGERY lamenectomy/discetomy then had a revison of that sx. 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, nasal sx d/t broken nose, colonoscopy/egd, PAIN CLINIC PROCEDURES Past Anesthesia/Blood Transfusion Reactions: No Reported Reaction Additional Past Anesthesia/Blood Transfusion Reaction / Comment(s): PT RECIEVED BLOOD TRANSFUSIONS AFTER STOMACH SURGERY Past Psychological History: Anxiety, Depression, Panic Disorder Smoking Status: Never smoker Past Alcohol Use History: None Reported Past Drug Use History: None Reported - Past Family History Father Family Medical History: Cancer, Coronary Artery Disease (CAD) Additional Family Medical History / Comment(s): FATHER HAD BLADDER AND KIDNEY CANCER. FATHER HAD TB WHEN HE WAS A CHILD .FATHER AT AGE 87. Mother Family Medical History: Cancer Additional Family Medical History / Comment(s): MOTHER AT AGE 58 OF OVARIAN CANCER. General Exam Limitations: no limitations General appearance: alert, in no apparent distress Head exam: Present: atraumatic, normocephalic Eye exam: Present: normal appearance, PERRL ENT exam: Present: normal exam Neck exam: Present: normal inspection. Absent: tenderness, meningismus Respiratory exam: Present: normal lung sounds bilaterally. Absent: respiratory distress, wheezes Cardiovascular Exam: Present: regular rate, normal rhythm GI/Abdominal exam: Present: soft. Absent: distended, tenderness, guarding, rebound Extremities exam: Present: normal inspection, normal capillary refill. Absent: pedal edema Neurological exam: Present: alert, oriented X3, CN II-XII intact. Absent: motor sensory deficit Psychiatric exam: Present: normal affect, normal mood Skin exam: Present: warm, dry, intact Course Vital Signs 10/21/20 17:47 Temperature 98.3 F Pulse Rate 92 Respiratory 20 Rate Blood Pressure 145/77 O2 Sat by Pulse 97 Oximetry - Reevaluation(s) Reevaluation #1: 10/21/20 18:34 Patient not driving. Medical Decision Making - Medical Decision Making 75-year-old female who has been prescribed fentanyl patch is presenting for a single patch refill. This is provided in the emergency department. She has a refill coming on Thursday which is 2 days from now. She has no other complaints and this is her only request for Disposition Clinical Impression: Chronic pain, Medication refill Disposition: HOME SELF-CARE Condition: Fair Instructions (If sedation given, give patient instructions): Medicine Refill (ED) Is patient prescribed a controlled substance at d/c from ED?: No Referrals: Ale Eli MD [Primary Care Provider] - 1-2 days Time of Disposition: 18:29
[2020-10-21 19:05] VITALS: RESP 18
[2020-10-21 19:06] VITALS: BP 143/78; PULSE 90; TEMP 98.1
== END 2020-10-21 19:06 | disposition home or self-care (01) ==
LOC: EC 17:36
DX: G89.29 Other chronic pain (principal); R10.9 Unspecified abdominal pain; R19.7 Diarrhea, unspecified; J45.909 Unspecified asthma, uncomplicated; K21.9 Gastro-esophageal reflux disease without esophagitis; Z76.0 Encounter for issue of repeat prescription; Z79.51 Long term (current) use of inhaled steroids; Z79.899 Other long term (current) drug therapy; Z88.8 Allergy status to other drugs, medicaments and biological substances; Z91.048 Other nonmedicinal substance allergy status
CPT/HCPCS: 99281

== ENCOUNTER 2020-11-04 15:06 | Inpatient (IN) | payer MEDICARE, OTHER ==
[2020-11-04] MEDS ORDERED: predniSONE 20 MG TAB PO STA (15:32)
[2020-11-04] MEDS ORDERED: IPRATROPIUM-ALBUTEROL 3 ML NEB INHALATION STA (15:32)
[2020-11-04] MEDS ORDERED: ASPIRIN 81 MG PO STA (15:33)
[2020-11-04] MEDS ORDERED: SODIUM CHLORIDE 0.9% 1,000 ML IV ONE (15:41)
--- NOTE | 2020-11-04 15:41 | ED ---
General Adult HPI - General Chief complaint: Shortness of Breath Stated complaint: SOB Time Seen by Provider: 11/04/20 15:16 Source: patient, RN notes reviewed, old records reviewed Mode of arrival: wheelchair Limitations: no limitations - History of Present Illness Initial comments: Patient is a 75-year-old female with past medical history remarkable for asthma, COPD, memory impairment, prior DVT, GERD and acid reflux, abdominal surgery now nothing by mouth and receiving nutrition via TPN. Patient presents complaining of a three-day history of increased shortness of breath, cough productive of green mucous, as well as bilateral lower chest pain on her anterior chest. She states pain as a sharp sensation in his is worse with coughing. She states that her cough is productive of a greenish mucus without blood. She denies any abdominal pain or nausea or vomiting. She denies any lightheadedness or blurry vision. She does endorse worsening shortness of breath, but is worse with exertion. Denies any orthopnea, PND, or extremity swelling. She has never been on blood thinners, however per EMR she does have a history of DVTs. She states she has never smoked. She called her PCP who cannot get her into the office to be seen and therefore she presents emergency department for evaluation. - Related Data Home Medications Medication Instructions Recorded Confirmed Ferrous Sulfate [Iron (65 MG 325 mg PO DAILY 11/06/15 11/04/20 Elemental)] Levocetirizine Dihydrochloride 5 mg PO HS 05/31/17 11/04/20 [Xyzal] Levothyroxine Sodium [Synthroid] 88 mcg PO DAILY 06/07/19 11/04/20 calcitrioL [Calcitriol] 1 mcg PO MOWEFR 06/07/19 11/04/20 Albuterol Inhaler [Ventolin Hfa 1 puff INHALATION RT-Q6H PRN 10/05/19 11/04/20 Inhaler] busPIRone HCL [Buspar] 30 mg PO BID 04/14/20 11/04/20 HYDROcodone/APAP 5-325MG [[place] 1 tab PO BID PRN 04/18/20 11/04/20 5-325] Potassium Chloride ER [K-Dur 10] 10 meq PO TID 04/18/20 11/04/20 hydrOXYzine pamoate [hydrOXYzine 25 mg PO TID 04/18/20 11/04/20 PAMOATE] Budesonide/Formoterol Fumarate 2 puff INHALATION RT-BID 06/30/20 11/04/20 [Symbicort 160-4.5 Mcg Inhaler] Butalb/APAP/Caff 50-325-40Mg 1 tab PO BID PRN 06/30/20 11/04/20 [Fioricet 50-325-40] Fluticasone Nasal [place] [Flonase 1 spray EA NOSTRIL DAILY PRN 06/30/20 11/04/20 Nasal [place]] Furosemide [Lasix] 20 mg PO DAILY 06/30/20 11/04/20 Mirtazapine 45 mg PO HS 06/30/20 11/04/20 SUMAtriptan SUCCINATE [Imitrex] 50 mg PO DAILY PRN 06/30/20 11/04/20 fentaNYL 75MCG/HR PATCH [Duragesic 1 patch TRANSDERM Q72H 06/30/20 11/04/20 75MCG/HR] Magnesium Oxide 400 mg PO DAILY 10/09/20 11/04/20 DULoxetine HCL [Cymbalta] 30 mg PO DAILY 11/04/20 11/04/20 buPROPion XL [Wellbutrin XL] 150 mg PO DAILY 11/04/20 11/04/20 ursodioL [Ursodiol] 250 mg PO BID 11/04/20 11/04/20 Previous Rx's Medication Instructions Recorded Pantoprazole Sodium [Protonix] 40 mg PO BID 30 Days #60 tablet. 04/27/20 buPROPion XL [Wellbutrin XL] 300 mg PO DAILY #3 tab.er.24h 09/30/20 Allergies Allergy/AdvReac Type Severity Reaction Status Date / Time denosumab [From Prolia] Allergy SEVERE Verified 11/04/20 19:34 CALCIUM LOSS DUST Allergy Itching Uncoded 11/04/20 15:12 MOLDS Allergy Itching Uncoded 11/04/20 15:12 Review of Systems ROS Statement: Those systems with pertinent positive or pertinent negative responses have been documented in the HPI. Review of Systems: CONST: Denies fever EYES: Denies blurry vision ENT: Denies nasal congestion C/V: Endorses chest pain RESP: Endorses shortness of breath GI: Denies abdominal pain : Denies dysuria SKIN: Denies rash. MSK: Denies joint pain. NEURO: Denies headache ROS Other: All systems not noted in ROS Statement are negative. 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 History of Any Multi-Drug Resistant Organisms: None Reported Past Surgical History: Back Surgery, Bowel Resection Additional Past Surgical History / Comment(s): LOWER BACK SURGERY la menectomy/discetomy then had a revison of that sx. 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, nasal sx d/t broken nose, colonoscopy/egd, PAIN CLINIC PROCEDURES Past Anesthesia/Blood Transfusion Reactions: No Reported Reaction Additional Past Anesthesia/Blood Transfusion Reaction / Comment(s): PT RECIEVED BLOOD TRANSFUSIONS AFTER STOMACH SURGERY Past Psychological History: Anxiety, Depression, Panic Disorder Smoking Status: Never smoker Past Alcohol Use History: None Reported Past Drug Use History: None Reported - Past Family History Father Family Medical History: Cancer, Coronary Artery Disease (CAD) Additional Family Medical History / Comment(s): FATHER HAD BLADDER AND KIDNEY CANCER. FATHER HAD TB WHEN HE WAS A CHILD .FATHER AT AGE 87. Mother Family Medical History: Cancer Additional Family Medical History / Comment(s): MOTHER AT AGE 58 OF OVARIAN CANCER. General Exam - General Exam Comments Initial Comments: General: Appears in no acute distress. She is somewhat cachectic. HEAD: Normal with no signs of head trauma. EYES: PERRLA, EOMI, conjunctiva normal, no discharge. ENT: Hearing grossly intact, normal oropharynx. RESPIRATORY: Patient has mild bilateral end expiratory wheezes. No obvious rhonchi. There is no increased work of breathing, no retractions. She is very mildly tachypneic in triage. C/V: Patient is tachycardic with a regular rhythm. S1 and S2 auscultated. No peripheral edema. Peripheral pulses are 2+ and intact throughout. Patient has her TPN access in her right upper extremity. ABD: Abd is soft, nontender, nondistended EXT: Normal range of motion, no obvious deformity SKIN: No rashes or lesions observed on exposed skin. NEURO: Alert and oriented 4. Limitations: no limitations Course Vital Signs 11/04/20 11/04/20 11/04/20 15:12 16:09 16:18 Temperature 98.7 F Pulse Rate 119 H 111 H 108 H Respiratory 24 18 18 Rate Blood Pressure 136/80 O2 Sat by Pulse 100 Oximetry 11/04/20 11/04/20 11/04/20 16:54 20:42 21:33 Temperature Pulse Rate 115 H 92 61 Respiratory 18 18 18 Rate Blood Pressure 119/62 125/73 155/65 O2 Sat by Pulse 98 100 95 Oximetry Medical Decision Making - Medical Decision Making Based on the patient's presentation and physical exam, I'm concerned for possible upper respiratory infection versus COPD/asthma exacerbation the patient. I cannot rule out cardiac etiology at this time. I must consider possible pulmonary embolism. Therefore we will obtain a cardiac workup, including d-dimer, troponin, EKG. Patient is not PERC out. Her Wells score for pulmonary embolus and is 3. Chest x-ray will also be obtained. COVID 19 swab will be obtained. She was in agreement with this plan. She'll be symptoma tically treated with by mouth prednisone, IV units, IV Toradol, and 1 L fluid bolus. She connected to continuous radiation monitor and she is here in the emergency department. Laboratory studies are remarkable for a leukocytosis of 16.5, a normocytic anemia with a hemoglobin of 10.0, an elevated d-dimer 6.42, hypokalemia at 3.0, hypomagnesemia 1.2, elevated LFTs mildly with an AST of 45, ALT of 44, and alk phos of 235. Troponin is negative. Patient also has an elevated BUN/creatinine the setting of CK D. Baseline creatinine is typically from 1.3-1.5. EKG showed sinus tachycardia, and no signs of acute ischemia. Chest x-ray revealed chronic bilateral infiltrates, slightly worsening in the right. Magnesium was supplemented. On reevaluation, I did discuss the results of the patient's laboratory studies patient. I recommended that we obtain a CT thorax for pulmonary embolus. She was in agreement with this plan. Patient's CT thorax for pulmonary embolism revealed no pulmonary embolism. It does appear that there is possible atypical pneumonia versus a necrotic tumor. In the setting of chronic findings, but was slightly worsening findings on imaging as well as with productive cough, I believe it is likely atypical pneumonia. I informed the patient the findings results and recommended that due to her electrolyte abnormalities as well as her acute pneumonia, we admitted for IV and about expert she was in agreement with the plan. I also think that Nutrition should evaluate the patient due to the electrolyte abnormalities I spoke with the admitting team, Dr. Desir, who accepted the patient. Patient was therefore admitted in guarded condition. - Lab Data Result diagrams: 11/04/20 15:42 11/04/20 15:42 Lab Results 11/04/20 11/04/20 11/04/20 Range/Units 15:42 15:42 15:42 WBC 16.5 H (3.8-10.6) k/uL RBC 3.93 (3.80-5.40) m/uL Hgb 10.0 L (11.4-16.0) gm/dL Hct 33.0 L (34.0-46.0) % MCV 84.1 D (80.0-100.0) fL MCH 25.5 (25.0-35.0) pg MCHC 30.3 L (31.0-37.0) g/dL RDW 17.8 H (11.5-15.5) % Plt Count 365 (150-450) k/uL MPV 7.0 Neutrophils % 90 % Lymphocytes % 3 % Monocytes % 3 % Eosinophils % 1 % Basophils % 0 % Neutrophils # 14.9 H (1.3-7.7) k/uL Lymphocytes # 0.5 L (1.0-4.8) k/uL Monocytes # 0.6 (0-1.0) k/uL Eosinophils # 0.2 (0-0.7) k/uL Basophils # 0.1 (0-0.2) k/uL Hypochromasia Marked Anisocytosis Slight PT 10.0 (9.0-12.0) sec INR 0.9 (<1.2) APTT 21.6 L (22.0-30.0) sec D-Dimer 6.42 H (<0.60) mg/L FEU Sodium 143 (137-145) mmol/L Potassium 3.0 L (3.5-5.1) mmol/L Chloride 106 (98-107) mmol/L Carbon Dioxide 20 L (22-30) mmol/L Anion Gap 17 mmol/L BUN 35 H (7-17) mg/dL Creatinine 1.46 H (0.52-1.04) mg/dL Est GFR (CKD-EPI)AfAm 41 (>60 ml/min/1.73 sqM) Est GFR (CKD-EPI)NonAf 36 (>60 ml/min/1.73 sqM) Glucose 94 (74-99) mg/dL Calcium 8.2 L (8.4-10.2) mg/dL Magnesium 1.2 L (1.6-2.3) mg/dL Total Bilirubin 0.2 (0.2-1.3) mg/dL AST 45 H (14-36) U/L ALT 44 H (4-34) U/L Alkaline Phosphatase 335 H (38-126) U/L Troponin I (0.000-0.034) ng/mL Total Protein 6.5 (6.3-8.2) g/dL Albumin 3.6 (3.5-5.0) g/dL Coronavirus (PCR) (Not Detectd) 11/04/20 11/04/20 Range/Units 15:42 16:30 WBC (3.8-10.6) k/uL RBC (3.80-5.40) m/uL Hgb (11.4-16.0) gm/dL Hct (34.0-46.0) % MCV (80.0-100.0) fL MCH (25.0-35.0) pg MCHC (31.0-37.0) g/dL RDW (11.5-15.5) % Plt Count (150-450) k/uL MPV Neutrophils % % Lymphocytes % % Monocytes % % Eosinophils % % Basophils % % Neutrophils # (1.3-7.7) k/uL Lymphocytes # (1.0-4.8) k/uL Monocytes # (0-1.0) k/uL Eosinophils # (0-0.7) k/uL Basophils # (0-0.2) k/uL Hypochromasia Anisocytosis PT (9.0-12.0) sec INR (<1.2) APTT (22.0-30.0) sec D-Dimer (<0.60) mg/L FEU Sodium (137-145) mmol/L Potassium (3.5-5.1) mmol/L Chloride (98-107) mmol/L Carbon Dioxide (22-30) mmol/L Anion Gap mmol/L BUN (7-17) mg/dL Creatinine (0.52-1.04) mg/dL Est GFR (CKD-EPI)AfAm (>60 ml/min/1.73 sqM) Est GFR (CKD-EPI)NonAf (>60 ml/min/1.73 sqM) Glucose (74-99) mg/dL Calcium (8.4-10.2) mg/dL Magnesium (1.6-2.3) mg/dL Total Bilirubin (0.2-1.3) mg/dL AST (14-36) U/L ALT (4-34) U/L Alkaline Phosphatase (38-126) U/L Troponin I <0.012 (0.000-0.034) ng/mL Total Protein (6.3-8.2) g/dL Albumin (3.5-5.0) g/dL Coronavirus (PCR) Not Detected (Not Detectd) - EKG Data -: EKG Interpreted by Me EKG Comments: 12-lead Electrocardiogram Interpretation Note EKG was reviewed and interpreted by myself. 12-lead ECG performed at 1537 is interpreted by me as revealing sinus tachycardia at a rate of 117 beats per minute. Mcnary is normal. ID interval is 124 ms, QRS duration 72 ms, QTc is 471 ms.. There were no ST or T wave abnormalities to suggest myocardial ischemia or injury. R wave progression across the precordium was satisfactory. By my interpretation this EKG is non-diagnostic for acute ischemia. Disposition Clinical Impression: Pneumonia, Debility, On total parenteral nutrition (TPN), Hypomagnesemia, Hypokalemia, CKD (chronic kidney disease) Disposition: ADMITTED IP TO THIS HOSP Condition: Serious
[2020-11-04] MEDS ORDERED: KETOROLAC 15 MG/ML 1 ML VIAL IVP STA (15:42)
[2020-11-04 16:07] LABS: Albumin 3.6 g/dL (3.5-5.0); Calcium 8.2 mg/dL (8.4-10.2); Magnesium 1.2 mg/dL (1.6-2.3); Total Bilirubin 0.2 mg/dL (0.2-1.3); Total Protein 6.5 g/dL (6.3-8.2)
[2020-11-04 16:17] LABS: Anisocytosis Slight; Basophils # (A) 0.1 k/uL (0-0.2); Basophils % (A) 0 %; Eosinophils # (A) 0.2 k/uL (0-0.7); Eosinophils % (A) 1 %; Hypochromasia Marked; Lymphocytes # (A) 0.5 k/uL (1.0-4.8); Lymphocytes % (A) 3 %; MCH 25.5 pg (25.0-35.0); MCHC 30.3 g/dL (31.0-37.0); Monocytes # (A) 0.6 k/uL (0-1.0); Monocytes % (A) 3 %; Neutrophils # (A) 14.9 k/uL (1.3-7.7); Neutrophils % (A) 90 %; Platelet Count 365 k/uL (150-450); RBC 3.93 m/uL (3.80-5.40); RDW 17.8 % (11.5-15.5); WBC 16.5 k/uL (3.8-10.6)
[2020-11-04 16:20] LABS: INR 0.9 (<1.2); MCV 84.1 fL (80.0-100.0)
[2020-11-04 16:22] LABS: Partial Thromboplastin Time 21.6 sec (22.0-30.0)
--- NOTE | 2020-11-04 16:24 | XR ---
EXAMINATION TYPE: XR chest 2V DATE OF EXAM: 11/04/2020 COMPARISON: October 19, 2020 HISTORY: Difficulty breathing TECHNIQUE: 2 views FINDINGS: There is some linear infiltrate and atelectasis in the right midlung field along the minor fissure. There is some patchy nodular infiltrate in the left lower lobe. Heart size is normal. There is no heart failure. There is no evidence of mediastinal mass. There is right central venous catheter with tip in the superior vena cava. There is no pleural effusion. Bony thorax is intact. There is no heart failure. IMPRESSION: There are bilateral chronic pulmonary infiltrates which are overall slightly improved in the left lower lobe compared to 10/09/2020 exam. The right side infiltrate not significantly different . No heart failure.
[2020-11-04] MEDS ORDERED: HYDROmorphone 0.5 MG/0.5 ML SYRINGE IVP STA ×2 (16:46→22:20)
--- NOTE | 2020-11-04 17:47 | CT ---
EXAMINATION TYPE: CT chest angio for PE DATE OF EXAM: 11/04/2020 COMPARISON: Chest CT scan April 21, 2020 HISTORY: Shortness of breath and elevated d-dimer. CT DLP: 146.6 mGycm Automated exposure control for dose reduction was used. CONTRAST: Performed with IV Contrast, patient injected with 55ml mL of Isovue 370. There are 3-D post processed images. There is airspace consolidation in the right mid and upper lung field. There is pleural thickening al connie the right lateral chest wall. There is also some paraspinal pleural thickening in both lower lobe s. There is bilateral mild pleural effusions. There is some patchy airspace consolidation in the left lower lobe. There is some minimal cavitation involving 2 cm nodular infiltrate lateral left lower lo be. There is some stellate cavitating infiltrate lateral aspect left upper lobe adjacent to the chest wall. There is extensive cavitation in the infiltrate in the lateral right upper lobe. There is no evidence of filling defect in the pulmonary arteries. Heart size is normal. There is no p ericardial effusion. There are enlarged right bronchial lymph nodes up to 1.5 cm. Thoracic aorta show s no aneurysm or dissection. Ascending aorta measures 3.4 cm. There is some mild osteosclerosis in the thoracic vertebra. There is mild thoracic dextroscoliosis. IMPRESSION: No evidence of pulmonary embolism. Multiple bilateral patchy areas of cavitating airspace consolidation in the upper and lower lobes. In filtrates significantly worse than old exam. There is improvement in the bilateral pleural effusions compared to old exam. I would consider possibilities of atypical pneumonia as well as necrotic tumor. There is suggestion of some osteosclerosis in the thoracic vertebra that raises the possibility of my eloproliferative disorder or chronic renal failure.
[2020-11-04] MEDS ORDERED: BUTA/APAP/CAF/COD 50-325-40-30 CAP PO STA (18:57)
[2020-11-04] MEDS ORDERED: NALOXONE 0.4 MG/ML 1 ML VIAL IV PRN (18:58)
[2020-11-04] MEDS ORDERED: MAGNESIUM SULFATE-D5W PMX 1 GM in DEXTROSE/WATER 1 100ML.BAG IVPB ONE (19:35)
[2020-11-05] MEDS ORDERED: SUMAtriptan succinate 50 MG TAB PO PRN (00:32)
[2020-11-05] MEDS ORDERED: FLUTICASONE 50MCG/SPRAY NASAL 16GM EA NOSTRIL PRN (00:32)
[2020-11-05] MEDS ORDERED: ALBUTEROL NEBULIZED 2.5 MG/3 ML INHALATION PRN (00:32)
[2020-11-05] MEDS: MIRTAZAPINE 45 MG TABLET PO SCH ×2 (02:08→23:01)
[2020-11-05] MEDS ORDERED: HYDROmorphone 0.5 MG/0.5 ML SYRINGE IVP STA ×2 (05:23→05:50)
--- NOTE | 2020-11-05 05:27 | P.EN ---
RN notified me that she can not get a hold on ED admitting physician , or the current admitting attending physician patient is in a lot of pain , and she has received dilaudid earlier which has helped with her pain when she was in the ED. she is currently on aspiration precautions , for which she cant take PO norco. RN requested if I can help assess pain and order one time dilaudid if possible patient currently has fentanyl patch 75 however, is not helping with the pain , pleuritic chest pain patient will be given 0.5 mg one time IVP of dilaudid , which has worked for her earlier
[2020-11-05] MEDS: LEVOTHYROXINE 88 MCG TAB PO SCH (05:29)
[2020-11-05] MEDS: PANTOPRAZOLE 40 MG TABLET PO SCH ×3 (11:15→18:24)
[2020-11-05 11:28] LABS: Ionized Calcium 4.8 mg/dL (4.5-5.3)
[2020-11-05 11:41] LABS: African American GFR (CKD) 43 (>60 ml/min/1.73 sqM); Anion Gap 10 mmol/L; Blood Urea Nitrogen 30 mg/dL (7-17); Calcium 8.2 mg/dL (8.4-10.2); Carbon Dioxide 20 mmol/L (22-30); Chloride 110 mmol/L (98-107); Glucose 101 mg/dL (74-99); Magnesium 1.7 mg/dL (1.6-2.3); Non-African American GFR(CKD) 37 (>60 ml/min/1.73 sqM); Phosphorus 3.8 mg/dL (2.5-4.5); Potassium 2.9 mmol/L (3.5-5.1); Sodium 140 mmol/L (137-145)
[2020-11-05] MEDS: PIPERACILLIN-TAZOBACTAM 3.375 GM in SODIUM CHLORIDE 0.9% 100 ML IVPB SCH ×2 (12:07→19:36)
--- NOTE | 2020-11-05 12:33 | P.CNPUL ---
History of Present Illness Consult date: 11/05/20 Requesting physician: Palmer Desir Reason for consult: chest pain, abnormal CXR/CT Chief complaint: Chest and back pain History of present illness: This is a 75-year-old white female patient who we have seen in consultation previously for aspiration pneumonia, patient has a history of esophageal narrowing for which she was seen at the [facility], patient on home TPN for nutritional support in addition to some oral feedings, some soft foods. The medical history includes history of peptic ulcer disease, partial gastrectomy and Kacey-en-Y gastric surgery at the [facility], chronic anemia, hypothyroidism, hyperlipidemia, migraine cephalgia, history of DVT. We did recently see the patient at the end of September for dyspnea, with the possibility of recurrent and chronic aspiration. She was discharged home on outpatient course of oral antibiotics. She was evaluated by speech therapy who okayed full liquid diet in addition to TPN. Patient followed up at the [facility] for esophageal stage dysphagia however no surgical intervention was recommended. Patient presented to the emergency department on 11/04/2020 with a complaint of shortness of breath, cough productive of green mucus, and bilateral lower chest pain and back pain that was worse with breathing. She denied any abdominal pain, no nausea or vomiting, no fever or chills. She is a nonsmoker. She states she still receives TPN, and she does take some limited oral intake of full liquids. Chest x-ray showed bilateral chronic pulmonary infiltrates that are overall slightly improved in the left lower lobe compared to 10/09/2020 exam. Patient is afebrile, she is on room air with a pulse ox of 98%, hemodynamically patient is stable, her lab work reveals white blood cell count is 16.5, hemoglobin of 10.0, INR 0.9, d-dimer was 6.42, sodium was 143, potassium is 3.0, chloride is 106, CO2 is 20, B1 is 35, creatinine is 1.46, AST was 45, ALT was 44, alkaline phosphatase was 335, troponin was less than 0.012, COVID-19 PCR was negative. Patient is breathing fairly comfortably, she does endorse bilateral chest pain with breathing along the rib margins, and some back pain that's worse with breathing. CTA chest showed no evidence of pulmonary embolism, and it did show multiple bilateral patchy areas of cavitating airspace consolidation in the upper and lower lobes, worsened infiltrates, and improvement in the bilateral pleural effusions compared to previous computed tomography scan from 04/21/2020. Of note patient has been in the emergency department multiple times in October and September for various complaints, in October he had been in with complaints of cough, and diarrhea, and for refills of her pain medications. Patient is on fentanyl patch 35 g every 7 days, in addition to No rco. During our evaluation patient is sitting up in bed, calm and comfortable, breathing comfortably, lung sounds are clear to auscultation, no cough, no congestion. She is on room air pulse ox of 98%, vital signs have been stable since admission, she has been afebrile, she is currently on Zosyn, breathing treatments. She is complaining of pleuritic chest pain, she was given a dose of Toradol, and she has received some intermittent doses of Dilaudid. she is on her home dose Fentanyl and she is currently nothing by mouth awaiting speech evaluation. Review of Systems All systems: negative Constitutional: Denies chills, Denies fever Eyes: denies blurred vision, denies pain Ears, nose, mouth and throat: Denies headache, Denies sore throat Cardiovascular: Denies chest pain, Denies shortness of breath Respiratory: Reports pain on inspiration, Reports respiratory infections, Denies cough Gastrointestinal: Denies abdominal pain, Denies diarrhea, Denies nausea, Denies vomiting Genitourinary: Denies dysuria, Denies hematuria Musculoskeletal: Denies myalgias Integumentary: Denies pruritus, Denies rash Neurological: Denies numbness, Denies weakness Psychiatric: Denies anxiety, Denies depression Endocrine: Denies fatigue, Denies weight change Past Medical History Past Medical History: Asthma, Deep Vein Thrombosis (DVT), GERD/Reflux, Memory Impairment Additional Past Medical History / Comment(s): 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 History of Any Multi-Drug Resistant Organisms: None Reported Past Surgical History: Back Surgery, Bowel Resection Additional Past Surgical History / Comment(s): LOWER BACK SURGERY lamenectomy/discetomy then had a revison of that sx. 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, nasal sx d/t broken nose, colonoscopy/egd, PAIN CLINIC PROCEDURES Past Anesthesia/Blood Transfusion Reactions: No Reported Reaction Additional Past Anesthesia/Blood Transfusion Reaction / Comment(s): PT RECIEVED BLOOD TRANSFUSIONS AFTER STOMACH SURGERY Past Psychological History: Anxiety, Depression, Panic Disorder Smoking Status: Never smoker Past Alcohol Use History: None Reported Past Drug Use History: None Reported - Past Family History Father Family Medical History: Cancer, Coronary Artery Disease (CAD) Additional Family Medical History / Comment(s): FATHER HAD BLADDER AND KIDNEY CANCER. FATHER HAD TB WHEN HE WAS A CHILD .FATHER AT AGE 87. Mother Family Medical History: Cancer Additional Family Medical History / Comment(s): MOTHER AT AGE 58 OF OVARIAN CANCER. Medications and Allergies Home Medications Medication Instructions Recorded Confirmed Type Ferrous Sulfate [Iron (65 MG 325 mg PO DAILY 11/06/15 11/04/20 History Elemental)] Levocetirizine Dihydrochloride 5 mg PO HS 05/31/17 11/04/20 History [Xyzal] Levothyroxine Sodium [Synthroid] 88 mcg PO DAILY 06/07/19 11/04/20 History calcitrioL [Calcitriol] 1 mcg PO MOWEFR 06/07/19 11/04/20 History Albuterol Inhaler [Ventolin Hfa 1 puff INHALATION RT-Q6H PRN 10/05/19 11/04/20 History Inhaler] busPIRone HCL [Buspar] 30 mg PO BID 04/14/20 11/04/20 History HYDROcodone/APAP 5-325MG [[place] 1 tab PO BID PRN 04/18/20 11/04/20 History 5-325] Potassium Chloride ER [K-Dur 10] 10 meq PO TID 04/18/20 11/04/20 History hydrOXYzine pamoate [hydrOXYzine 25 mg PO TID 04/18/20 11/04/20 History PAMOATE] Pantoprazole Sodium [Protonix] 40 mg PO BID 30 Days #60 tablet. 04/27/20 11/04/20 Rx Budesonide/Formoterol Fumarate 2 puff INHALATION RT-BID 06/30/20 11/04/20 History [Symbicort 160-4.5 Mcg Inhaler] Butalb/APAP/Caff 50-325-40Mg 1 tab PO BID PRN 06/30/20 11/04/20 History [Fioricet 50-325-40] Fluticasone Nasal [place] [Flonase 1 spray EA NOSTRIL DAILY PRN 06/30/20 11/04/20 History Nasal [place]] Furosemide [Lasix] 20 mg PO DAILY 06/30/20 11/04/20 History Mirtazapine 45 mg PO HS 06/30/20 11/04/20 History SUMAtriptan SUCCINATE [Imitrex] 50 mg PO DAILY PRN 06/30/20 11/04/20 History fentaNYL 75MCG/HR PATCH [Duragesic 1 patch TRANSDERM Q72H 06/30/20 11/04/20 History 75MCG/HR] buPROPion XL [Wellbutrin XL] 300 mg PO DAILY #3 tab.er.24h 09/30/20 11/04/20 Rx Magnesium Oxide 400 mg PO DAILY 10/09/20 11/04/20 History DULoxetine HCL [Cymbalta] 30 mg PO DAILY 11/04/20 11/04/20 History buPROPion XL [Wellbutrin XL] 150 mg PO DAILY 11/04/20 11/04/20 History ursodioL [Ursodiol] 250 mg PO BID 11/04/20 11/04/20 History Allergies Allergy/AdvReac Type Severity Reaction Status Date / Time denosumab [From Prolia] Allergy SEVERE Verified 11/04/20 19:34 CALCIUM LOSS DUST Allergy Itching Uncoded 11/04/20 15:12 MOLDS Allergy Itching Uncoded 11/04/20 15:12 Physical Exam Vitals: Vital Signs Temp Pulse Pulse Resp BP BP Pulse Ox 11/05/20 09:30 16 11/05/20 07:47 97.9 F 81 16 148/68 98 11/05/20 07:07 97 11/05/20 02:08 97.8 F 74 16 149/79 97 11/04/20 22:41 97.7 F 89 17 129/71 95 11/04/20 21:33 61 18 155/65 95 11/04/20 20:42 92 18 125/73 100 11/04/20 16:54 115 H 18 119/62 98 11/04/20 16:18 108 H 18 11/04/20 16:09 111 H 18 11/04/20 15:12 98.7 F 119 H 24 136/80 100 Intake and Output 11/04/20 11/05/20 11/05/20 22:59 06:59 14:59 Other: # Voids 1 Weight 40.823 kg GENERAL EXAM: Alert, very pleasant, 75-year-old white female, on room air with a pulse ox of 95% comfortable in no apparent distress. HEAD: Normocephalic/atraumatic. EYES: Normal reaction of pupils, equal size. Conjunctiva pink, sclera white. NOSE: Clear with pink turbinates. THROAT: No erythema or exudates. NECK: No masses, no JVD, no thyroid enlargement, no adenopathy. CHEST: No chest wall deformity. Symmetrical expansion. LUNGS: Equal air entry with no crackles, wheeze, rhonchi or dullness. CVS: Regular rate and rhythm, normal S1 and S2, no gallops, no murmurs, no rubs ABDOMEN: Soft, nontender. No hepatosplenomegaly, normal bowel sounds, no guarding or rigidity. EXTREMITIES: No clubbing, no edema, no cyanosis, 2+ pulses and upper and lower extremities. Right upper extremity PICC line in place for TPN infusion MUSCULOSKELETAL: Muscle strength and tone normal. SPINE: No scoliosis or deformity SKIN: No rashes CENTRAL NERVOUS SYSTEM: Alert and oriented -3. No focal deficits, tone is normal in all 4 extremities. PSYCHIATRIC: Alert and oriented -3. Appropriate affect. Intact judgment and insight. Results - Laboratory Findings CBC and BMP: 11/04/20 15:42 11/05/20 11:07 PT/INR, D-dimer PT 10.0 sec (9.0-12.0) 11/04/20 15:42 INR 0.9 (<1.2) 11/04/20 15:42 D-Dimer 6.42 mg/L FEU (<0.60) H 11/04/20 15:42 Abnormal lab findings: Abnormal Labs 11/04/20 11/04/20 11/04/20 15:42 15:42 15:42 WBC 16.5 H Hgb 10.0 L Hct 33.0 L MCHC 30.3 L RDW 17.8 H Neutrophils # 14.9 H Lymphocytes # 0.5 L APTT 21.6 L D-Dimer 6.42 H Potassium 3.0 L Chloride Carbon Dioxide 20 L BUN 35 H Creatinine 1.46 H Glucose Calcium 8.2 L Magnesium 1.2 L AST 45 H ALT 44 H Alkaline Phosphatase 335 H 11/05/20 11:07 WBC Hgb Hct MCHC RDW Neutrophils # Lymphocytes # APTT D-Dimer Potassium 2.9 L Chloride 110 H Carbon Dioxide 20 L BUN 30 H Creatinine 1.40 H Glucose 101 H Calcium 8.2 L Magnesium AST ALT Alkaline Phosphatase - Diagnostic Findings Chest x-ray: report reviewed, image reviewed CT scan - chest: report reviewed, image reviewed Assessment and Plan Plan: Assessment: #1. Dyspnea, pleuritic chest discomfort, related to chronic aspiration, chest x-ray shows chronic bilateral airspace disease, CTA chest was negative for evidence of pulmonary embolism, and showed multiple bilateral patchy areas of cavitating airspace consolidations in upper and lower lobes consistent with chronic aspiration. COVID-19 PCR was negative #2. History of aspiration pneumonia, related to esophageal stage dysphagia, patient is currently on TPN in addition to full liquid diet #3. History of partial gastrectomy , and Kacey-en-Y gastric bypass and this was done at the [facility] many years ago in 1994 #4. Parenteral nutrition for recurrent aspiration pneumonia and chronic dysphasia. Patient does take soft diet in the form of cream of wheat and mashed potatoes #5. History of dumping syndrome #6. History of COPD, currently stable #7. Remote history of DVT no longer on anticoagulation #8. History of memory impairment, patient has a legal guardian #9. Chronic pain syndrome with history of multiple back surgeries #10. Depression/anxiety #11. Chronic kidney disease stage III #12. GERD/reflux #13. Unspecified severe protein calorie malnutrition #14. Diaphragmatic hernia #15. Suspect pain seeking behavior, patient is in the emergency room frequently for various complaints including pain medication refills Plan: Continue current antibiotics May be switched to oral antibiotics when cleared by speech therapy Chest x-ray has been reviewed showing chronic bilateral airspace disease, Continue breathing treatments Patient can be cleared for discharge home from pulmonary perspective She wants to pursue second opinion with Dr. Roa to see if something can be done with her esophageal stage dysphagia Clinically patient is stable She can follow up with Dr. Grace in the pulmonary clinic after discharge I performed a history & physical examination of the patient and discussed their management with my nurse practitioner, Brittany Garcia. I reviewed the nurse practitioner's note and agree with the documented findings and plan of care. Lung sounds are positive for diffuse wheezes throughout the lung calixto. The findings and the impression was discussed with the patient. I attest to the documentation by the nurse practitioner. Time with Patient: Greater than 30
[2020-11-05 12:36] VITALS: BMI 16.5
[2020-11-05] MEDS: hydrOXYzine pamoate 25 MG CAP PO SCH ×3 (12:56→21:14)
[2020-11-05] MEDS: busPIRone HCl 10 MG TAB PO SCH ×2 (12:56→21:14)
[2020-11-05] MEDS: buPROPion XL 300 MG TAB.ER.24H PO SCH (12:57)
[2020-11-05] MEDS: FERROUS SULFATE 325 MG TAB PO SCH (12:58)
[2020-11-05] MEDS: MAGNESIUM OXIDE 400 MG TAB PO SCH (12:58)
[2020-11-05] MEDS: FUROSEMIDE 20 MG TAB PO SCH (12:58)
[2020-11-05] MEDS: POTASSIUM CHLORIDE ER 10 MEQ TAB.ER.PRT PO SCH ×3 (12:58→21:14)
[2020-11-05] MEDS: DULoxetine HCL 30 MG CAPSULE.DR PO SCH (12:59)
[2020-11-05] MEDS: buPROPion XL 150 MG TAB.ER.24H PO SCH (12:59)
[2020-11-05] MEDS: ursodioL 300 MG CAP PO SCH ×2 (12:59→21:19)
[2020-11-05] MEDS: BUTALB/APAP/CAFF 50-325-40MG TAB PO PRN (13:06)
[2020-11-05] MEDS: HYDROcodone/APAP 5-325MG 1 EACH TAB PO PRN (13:09)
[2020-11-05] MEDS ORDERED: MVI, ADULT NO.4 WITH VIT K 10 ML, TRACE (CONC-1ML/DOSE) 1 ML in AMINO ACID 5%-D15W+LYTE... IV ONE ×3 (15:00)
[2020-11-05] MEDS: MAGNESIUM SULFATE-D5W PMX 1 GM in DEXTROSE/WATER 1 100ML.BAG IVPB SCH ×2 (15:04→16:35)
[2020-11-05] MEDS ORDERED: FAT EMULSION 20% 250 ML in EMPTY BAG 1 BAG IV SCH (16:00)
--- NOTE | 2020-11-05 17:55 | P.HPIM ---
History of Present Illness H&P Date: 11/05/20 Louise Sutton is a 75 year old female who presented to [facility] emergency room with a chief complaint of cough bilateral lower rib area chest pain and shortness of breath. She was evaluated in the emergency room vital examination on presentation revealed a temperature of 98.7 pulse 119 respiration 24 blood pressure 136/80 and pulse ox 100% on room air Laboratory data reveals a white blood count of 16.5 hemoglobin 10.0 platelet count 365 d-dimer was elevated at 6.42 BUN was elevated at 35 and creatinine elevated at 1.46 Testing in the emergency room, chest x-ray revealed bilateral chronic pulmonary infiltrates, CT angiogram of the chest revealed no evidence of pulmonary emb olism, patient had bilateral infiltrates. Patient was admitted to medical floor for further evaluation and treatment Past medical history is significant for : 1. History of aspiration pneumonia 2. history of esophageal narrowing 3. history of peptic ulcer disease, partial gastrectomy and Kacey-en-Y gastric surgery at the [facility], 4. History of chronic anemia. 5. History of hypothyroidism. 6. History of hyperlipidemia 7. History of migraine headache. 8. Previous history of DVT. On review of systems Patient was seen and examined on the medical floor, she is alert and oriented x 3 in no distress, she is complaining of pain in the bilateral ribs areas otherwise she denies any complaints there is no fever or chills no headache or dizziness no chest pain no shortness of breath no palpitation no cough no nausea or vomiting no abdominal pain no diarrhea no blood in the stools no burning with urination no frequency or urgency and no hematuria, there is no weakness or numbness in any of the extremities no change in vision speech or gait. 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 History of Any Multi-Drug Resistant Organisms: None Reported Past Surgical History: Back Surgery, Bowel Resection Additional Past Surgical History / Comment(s): LOWER BACK SURGERY lamenectomy/discetomy then had a revison of that sx. 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, nasal sx d/t broken nose, colonoscopy/egd, PAIN CLINIC PROCEDURES Past Anesthesia/Blood Transfusion Reactions: No Reported Reaction Additional Past Anesthesia/Blood Transfusion Reaction / Comment(s): PT RECIEVED BLOOD TRANSFUSIONS AFTER STOMACH SURGERY Past Psychological History: Anxiety, Depression, Panic Disorder Smoking Status: Never smoker Past Alcohol Use History: None Reported Past Drug Use History: None Reported - Past Family History Father Family Medical History: Cancer, Coronary Artery Disease (CAD) Additional Family Medical History / Comment(s): FATHER HAD BLADDER AND KIDNEY CANCER. FATHER HAD TB WHEN HE WAS A CHILD .FATHER AT AGE 87. Mother Family Medical History: Cancer Additional Family Medical History / Comment(s): MOTHER AT AGE 58 OF OVARIAN CANCER. Medications and Allergies Home Medications Medication Instructions Recorded Confirmed Type Ferrous Sulfate [Iron (65 MG 325 mg PO DAILY 11/06/15 11/04/20 History Elemental)] Levocetirizine Dihydrochloride 5 mg PO HS 05/31/17 11/04/20 History [Xyzal] Levothyroxine Sodium [Synthroid] 88 mcg PO DAILY 06/07/19 11/04/20 History calcitrioL [Calcitriol] 1 mcg PO MOWEFR 06/07/19 11/04/20 History Albuterol Inhaler [Ventolin Hfa 1 puff INHALATION RT-Q6H PRN 10/05/19 11/04/20 History Inhaler] busPIRone HCL [Buspar] 30 mg PO BID 04/14/20 11/04/20 History HYDROcodone/APAP 5-325MG [[place] 1 tab PO BID PRN 04/18/20 11/04/20 History 5-325] Potassium Chloride ER [K-Dur 10] 10 meq PO TID 04/18/20 11/04/20 History hydrOXYzine pamoate [hydrOXYzine 25 mg PO TID 04/18/20 11/04/20 History PAMOATE] Pantoprazole Sodium [Protonix] 40 mg PO BID 30 Days #60 tablet. 04/27/20 11/04/20 Rx Budesonide/Formoterol Fumarate 2 puff INHALATION RT-BID 06/30/20 11/04/20 History [Symbicort 160-4.5 Mcg Inhaler] Butalb/APAP/Caff 50-325-40Mg 1 tab PO BID PRN 06/30/20 11/04/20 History [Fioricet 50-325-40] Fluticasone Nasal [place] [Flonase 1 spray EA NOSTRIL DAILY PRN 06/30/20 11/04/20 History Nasal [place]] Furosemide [Lasix] 20 mg PO DAILY 06/30/20 11/04/20 History Mirtazapine 45 mg PO HS 06/30/20 11/04/20 History SUMAtriptan SUCCINATE [Imitrex] 50 mg PO DAILY PRN 06/30/20 11/04/20 History fentaNYL 75MCG/HR PATCH [Duragesic 1 patch TRANSDERM Q72H 06/30/20 11/04/20 History 75MCG/HR] buPROPion XL [Wellbutrin XL] 300 mg PO DAILY #3 tab.er.24h 09/30/20 11/04/20 Rx Magnesium Oxide 400 mg PO DAILY 10/09/20 11/04/20 History DULoxetine HCL [Cymbalta] 30 mg PO DAILY 11/04/20 11/04/20 History buPROPion XL [Wellbutrin XL] 150 mg PO DAILY 11/04/20 11/04/20 History ursodioL [Ursodiol] 250 mg PO BID 11/04/20 11/04/20 History Allergies Allergy/AdvReac Type Severity Reaction Status Date / Time denosumab [From Prolia] Allergy SEVERE Verified 11/04/20 19:34 CALCIUM LOSS DUST Allergy Itching Uncoded 11/04/20 15:12 MOLDS Allergy Itching Uncoded 11/04/20 15:12 Physical Exam Vitals: Vital Signs Temp Pulse Pulse Resp BP BP Pulse Ox 11/05/20 07:47 97.9 F 81 16 148/68 98 11/05/20 07:07 97 11/05/20 02:08 97.8 F 74 16 149/79 97 11/04/20 22:41 97.7 F 89 17 129/71 95 11/04/20 21:33 61 18 155/65 95 11/04/20 20:42 92 18 125/73 100 11/04/20 16:54 115 H 18 119/62 98 11/04/20 16:18 108 H 18 11/04/20 16:09 111 H 18 11/04/20 15:12 98.7 F 119 H 24 136/80 100 Intake and Output 11/04/20 11/05/20 11/05/20 22:59 06:59 14:59 Other: # Voids 1 Weight 40.823 kg In general patient is alert and oriented x 3 in no distress HEENT head normocephalic and atraumatic Neck is supple no JVD no goiter no lymphadenopathy no carotid bruit Chest examination is clear to auscultation no crackles no wheezing Cardiac exam reveals regular heart sounds S1 and S2 no gallops no murmurs Abdomen is soft nontender no organomegaly with normal bowel sounds Extremity exam reveals no edema no cyanosis or clubbing Neurological examination reveals no gross focal deficits Results CBC & Chem 7: 11/04/20 15:42 11/05/20 11:07 Labs: Abnormal Lab Results - Last 24 Hours (Table) 11/04/20 11/04/20 11/04/20 Range/Units 15:42 15:42 15:42 WBC 16.5 H (3.8-10.6) k/uL Hgb 10.0 L (11.4-16.0) gm/dL Hct 33.0 L (34.0-46.0) % MCHC 30.3 L (31.0-37.0) g/dL RDW 17.8 H (11.5-15.5) % Neutrophils # 14.9 H (1.3-7.7) k/uL Lymphocytes # 0.5 L (1.0-4.8) k/uL APTT 21.6 L (22.0-30.0) sec D-Dimer 6.42 H (<0.60) mg/L FEU Potassium 3.0 L (3.5-5.1) mmol/L Carbon Dioxide 20 L (22-30) mmol/L BUN 35 H (7-17) mg/dL Creatinine 1.46 H (0.52-1.04) mg/dL Calcium 8.2 L (8.4-10.2) mg/dL Magnesium 1.2 L (1.6-2.3) mg/dL AST 45 H (14-36) U/L ALT 44 H (4-34) U/L Alkaline Phosphatase 335 H (38-126) U/L Thrombosis Risk Factor Assmnt - Choose All That Apply Each Factor Represents 1 point: Abnormal pulmonary function (COPD) Other Risk Factors: No Other congenital or acquired thrombophilia - If yes, enter type in comment: No Thrombosis Risk Factor Assessment Total Risk Factor Score: 1 Thrombosis Risk Factor Assessment Level: Low Risk Assessment and Plan Plan: 1. Chest pain and shortness of breath, it's not clear whether patient has a new episodes of aspiration with pneumonia, white blood count is elevated, she was started on IV antibiotics in the emergency room pulmonary consultation was requested 2. History of aspiration pneumonia, related to esophageal stage dysphagia, patient is currently on TPN in addition to full liquid diet 3. History of partial gastrectomy , and Kacey-en-Y gastric bypass and this was done at the [facility] many years ago in 1994 4. Parenteral nutrition for recurrent aspiration pneumonia and chronic dysphasia. Patient does take soft diet in the form of cream of wheat and mashed potatoes 5. severe protein calorie malnutrition 6. History of COPD, currently stable 7. Remote history of DVT no longer on anticoagulation 8. History of memory impairment, patient has a legal guardian 9. Chronic pain syndrome with history of multiple back surgeries, with some element of narcotic seeking behavior 10. Underlying history of depression with anxiety disorder 11. Chronic kidney disease stage III At this time patient is admitted to telemetry floor She was started on IV antibiotics Pulmonary consultation requested Will follow closely Prognosis is guarded due to severity of illness and multiple comorbidities
[2020-11-05] MEDS: HYDROmorphone 0.5 MG/0.5 ML SYRINGE IVP PRN ×2 (18:15→21:12)
[2020-11-05] MEDS: POTASSIUM CHLORIDE 20 MEQ in WATER FOR INJECTION 1 100ML.BAG IVPB SCH (18:18)
[2020-11-05] MEDS ORDERED: LORATADINE 10 MG TAB PO SCH (21:00)
[2020-11-05] MEDS ORDERED: POTASSIUM CHLORIDE 20 MEQ in WATER FOR INJECTION 1 100ML.BAG IVPB SCH (23:15)
[2020-11-06] MEDS: PIPERACILLIN-TAZOBACTAM 3.375 GM in SODIUM CHLORIDE 0.9% 100 ML IVPB SCH ×2 (02:06→10:26)
[2020-11-06] MEDS: HYDROmorphone 0.5 MG/0.5 ML SYRINGE IVP PRN ×5 (02:06→14:51)
[2020-11-06] MEDS: POTASSIUM CHLORIDE 20 MEQ in WATER FOR INJECTION 1 100ML.BAG IVPB SCH (02:09)
[2020-11-06] MEDS: HYDROcodone/APAP 5-325MG 1 EACH TAB PO PRN ×2 (04:23→14:03)
[2020-11-06] MEDS: LEVOTHYROXINE 88 MCG TAB PO SCH ×2 (05:33→08:06)
[2020-11-06 07:16] LABS: Anisocytosis Slight; Basophils # (A) 0.1 k/uL (0-0.2); Basophils % (A) 1 %; Eosinophils # (A) 0.6 k/uL (0-0.7); Eosinophils % (A) 5 %; HCT 30.7 % (34.0-46.0); HGB 9.1 gm/dL (11.4-16.0); Hypochromasia Marked; Lymphocytes # (A) 1.8 k/uL (1.0-4.8); Lymphocytes % (A) 15 %; MCH 25.9 pg (25.0-35.0); MCHC 29.5 g/dL (31.0-37.0); MCV 87.9 fL (80.0-100.0); Mean Platelet Volume 7.6; Monocytes # (A) 0.6 k/uL (0-1.0); Monocytes % (A) 5 %; Neutrophils # (A) 8.7 k/uL (1.3-7.7); Neutrophils % (A) 72 %; Platelet Count 377 k/uL (150-450); RDW 17.9 % (11.5-15.5); WBC 12.2 k/uL (3.8-10.6)
[2020-11-06 07:21] LABS: ALT 44 U/L (4-34); AST 33 U/L (14-36); African American GFR (CKD) 36 (>60 ml/min/1.73 sqM); Albumin 2.9 g/dL (3.5-5.0); Albumin/Globulin Ratio 1.1; Alkaline Phosphatase 260 U/L (38-126); Anion Gap 7 mmol/L; Blood Urea Nitrogen 30 mg/dL (7-17); Calcium 8.4 mg/dL (8.4-10.2); Carbon Dioxide 21 mmol/L (22-30); Chloride 115 mmol/L (98-107); Globulin 2.7 g/dL; Glucose 98 mg/dL (74-99); Non-African American GFR(CKD) 31 (>60 ml/min/1.73 sqM); Sodium 143 mmol/L (137-145); Total Bilirubin 0.1 mg/dL (0.2-1.3); Total Protein 5.6 g/dL (6.3-8.2)
[2020-11-06 07:26] VITALS: RESP 16
[2020-11-06 08:02] LABS: Magnesium 2.3 mg/dL (1.6-2.3); Phosphorus 3.3 mg/dL (2.5-4.5)
[2020-11-06] MEDS: PANTOPRAZOLE 40 MG TABLET PO SCH (08:05)
[2020-11-06] MEDS: POTASSIUM CHLORIDE ER 10 MEQ TAB.ER.PRT PO SCH (08:05)
[2020-11-06] MEDS: ursodioL 300 MG CAP PO SCH (08:05)
[2020-11-06] MEDS: buPROPion XL 150 MG TAB.ER.24H PO SCH (08:05)
[2020-11-06] MEDS: FUROSEMIDE 20 MG TAB PO SCH (08:05)
[2020-11-06] MEDS: hydrOXYzine pamoate 25 MG CAP PO SCH (08:06)
[2020-11-06] MEDS: busPIRone HCl 10 MG TAB PO SCH (08:06)
[2020-11-06] MEDS: FERROUS SULFATE 325 MG TAB PO SCH (08:07)
[2020-11-06] MEDS: DULoxetine HCL 30 MG CAPSULE.DR PO SCH (08:07)
[2020-11-06] MEDS: MAGNESIUM OXIDE 400 MG TAB PO SCH (08:07)
[2020-11-06] MEDS: buPROPion XL 300 MG TAB.ER.24H PO SCH (08:07)
[2020-11-06] MEDS: BUTALB/APAP/CAFF 50-325-40MG TAB PO PRN (08:11)
--- NOTE | 2020-11-06 09:47 | P.PN ---
Subjective Progress Note Date: 11/06/20 Principal diagnosis: Shortness of breath. This is a 75-year-old white female patient who we have seen in consultation previously for aspiration pneumonia, patient has a history of esophageal narrowing for which she was seen at the [facility], patient on home TPN for nutritional support in addition to some oral feedings, some soft foods. The medical history includes history of peptic ulcer disease, partial gastrectomy and Kacey-en-Y gastric surgery at the [facility], chronic anemia, hypothyroidism, hyperlipidemia, migraine cephalgia, history of DVT. We did recently see the patient at the end of September for dyspnea, with the possibility of recurrent and chronic aspiration. She was discharged home on outpatient course of oral antibiotics. She was evaluated by speech therapy who okayed full liquid diet in addition to TPN. Patient followed up at the [facility] for esophageal stage dysphagia however no surgical intervention was recommended. Patient presented to the emergency department on 11/04/2020 with a complaint of shortness of breath, cough productive of green mucus, and bilateral lower chest pain and back pain that was worse with breathing. She denied any abdominal pain, no nausea or vomiting, no fever or chills. She is a nonsmoker. She states she still receives TPN, and she does take some limited oral intake of full liquids. Chest x-ray showed bilateral chronic pulmonary infiltrates that are overall slightly improved in the left lower lobe compared to 10/09/2020 exam. Patient is afebrile, she is on room air with a pulse ox of 98%, hemodynamically patient is stable, her lab work reveals white blood cell count is 16.5, hemoglobin of 10.0, INR 0.9, d-dimer was 6.42, sodium was 143, potassium is 3.0, chloride is 106, CO2 is 20, B1 is 35, creatinine is 1.46, AST was 45, ALT was 44, alkaline phosphatase was 335, troponin was less than 0.012, COVID-19 PCR was negative. Patient is breathing fairly comfortably, she does endorse bilateral chest pain with breathing along the rib margins, and some back pain that's worse with breathing. CTA chest showed no evidence of pulmonary embolism, and it did show multiple bilateral patchy areas of cavitating airspace consolidation in the upper and lower lobes, worsened infiltrates, and improvement in the bilateral pleural effusions compared to previous computed tomography scan from 04/21/2020. Of note patient has been in the emergency department multiple times in October and September for various complaints, in October he had been in with complaints of cough, and diarrhea, and for refills of her pain medications. Patient is on fentanyl patch 35 g every 7 days, in addition to [place]. During our evaluation patient is sitting up in bed, calm and comfortable, breathing comfortably, lung sounds are clear to auscultation, no cough, no congestion. She is on room air pulse ox of 98%, vital signs have been stable since admission, she has been afebrile, she is currently on Zosyn, breathing treatments. She is complaining of pleuritic chest pain, she was given a dose of Toradol, and she has received some intermittent doses of Dilaudid. she is on her home dose Fentanyl and she is currently nothing by mouth awaiting speech evaluation. Progress note dated 11/06/2020. 75-year-old female that we saw in consultation yesterday. She has a history of aspiration pneumonia, esophageal narrowing, and multiple other medical problems. The patient had multiple admissions to this hospital this year alone, his been in the emergency room more than 10 times. She actually looks very good. She's on room air. She's is receiving a small amount of IV fluids. Clinically she is not in any respiratory distress. There is no conversational dyspnea, or audible wheezing, or use of accessory muscles. Chest x-ray and CAT scan did reveal evidence of patchy infiltrates, with some cavitation. Most of these abnormalities are chronic in nature. Currently, white count 12.2, hemoglobin 9.1, hematocrit 30.7, and platelet count is normal. Sodium 143, potassium 4, chlorides 115, CO2 21, anion gap 7, BUN 30, creatinine 1.62. Objective - Vital Signs Vital signs: Vital Signs Temp 97.6 F 11/06/20 07:25 Pulse 82 11/06/20 07:25 Resp 16 11/06/20 07:25 BP 135/78 11/06/20 07:25 Pulse Ox 98 11/06/20 07:25 Intake & Output 11/05/20 11/06/20 11/06/20 18:59 06:59 18:59 Intake Total 200 1228 Balance 200 1228 Weight 40.823 kg Intake: Intake, IV Titration 928 Amount Fat Emulsion 20% 250 ml 168 In Empty Bag 1 bag @ 21 mls/hr IV MoWeFr [facility] Rx#: [id number] Magnesium Sulfate-D5w Pmx 100 1 gm In Dextrose/Water 1 100ml.bag @ 100 mls/hr IVPB Q1H [facility] Rx#: [id number] Mvi, Adult No.4 with Vit 360 K 10 ml Trace (Conc-1Ml/ Dose) 1 ml In Amino Acid 5%-D15w+Lytes*E* 1,000 ml @ 30 mls/hr IV .Q24H [facility] Rx#:[id number] Piperacillin-Tazobactam 3 100 .375 gm In Sodium Chloride 0.9% 100 ml @ 25 mls/hr IVPB Q8H [facility] Rx#: [id number] Potassium Chloride 20 meq 100 In Water For Injection 1 100ml.bag @ 50 mls/hr IVPB Q2H [facility] Rx#: [id number] Potassium Chloride 20 meq 100 In Water For Injection 1 100ml.bag @ 50 mls/hr IVPB Q2H [facility] Rx#: [id number] Oral 200 300 Other: # Voids 2 2 - Exam No acute distress, oriented 3. Currently on room air. Saturations are reasonable. There is no evidence of conversational dyspnea or use of accessory muscles. HEENT examination is grossly unremarkable. Neck supple. Full range of motion. No adenopathy thyromegaly or neck vein dist ention. Cardiovascular examination reveals regular rhythm rate. S1-S2 normal. No S3 or S4. No discernible murmur noted. Heart rate is 82 bpm. Heart sounds are very distant. Lungs reveal scattered rhonchi. No wheezes or crackles. Breath sounds are equal bilaterally. Her exam today is her baseline examination. Abdomen soft bowel sounds are heard. No masses or tenderness. Extremities are intact. No cyanosis clubbing or edema. Skin is without rash or lesion. Neurologic examination is brief but nonfocal. - Labs CBC & Chem 7: 11/06/20 06:39 11/06/20 06:39 Labs: Abnormal Lab Results - Last 24 Hours (Table) 11/05/20 11/06/20 11/06/20 Range/Units 11:07 06:39 06:39 WBC 12.2 H (3.8-10.6) k/uL RBC 3.50 L (3.80-5.40) m/uL Hgb 9.1 L (11.4-16.0) gm/dL Hct 30.7 L (34.0-46.0) % MCHC 29.5 L (31.0-37.0) g/dL RDW 17.9 H (11.5-15.5) % Neutrophils # 8.7 H (1.3-7.7) k/uL Potassium 2.9 L (3.5-5.1) mmol/L Chloride 110 H 115 H (98-107) mmol/L Carbon Dioxide 20 L 21 L (22-30) mmol/L BUN 30 H 30 H (7-17) mg/dL Creatinine 1.40 H 1.62 H (0.52-1.04) mg/dL Glucose 101 H (74-99) mg/dL Calcium 8.2 L (8.4-10.2) mg/dL Total Bilirubin 0.1 L (0.2-1.3) mg/dL ALT 44 H (4-34) U/L Alkaline Phosphatase 260 H (38-126) U/L Total Protein 5.6 L (6.3-8.2) g/dL Albumin 2.9 L (3.5-5.0) g/dL Triglycerides 233.0 H (0.0-149.0) mg/dL Assessment and Plan Assessment: #1. Dyspnea, pleuritic chest discomfort, related to chronic aspiration, chest x-ray shows chronic bilateral airspace disease, CTA chest was negative for evidence of pulmonary embolism, and showed multiple bilateral patchy areas of cavitating airspace consolidations in upper and lower lobes consistent with chronic aspiration. COVID-19 PCR was negative. #2. History of aspiration pneumonia, related to esophageal stage dysphagia, patient is currently on TPN in addition to full liquid diet. #3. History of partial gastrectomy , and Kacey-en-Y gastric bypass and this was done at the [facility] many years ago in 1994. #4. Parenteral nutrition for recurrent aspiration pneumonia and chronic dysphasia. Patient does take soft diet in the form of cream of wheat and mashed potatoes. #5. History of dumping syndrome. #6. History of COPD, currently stable. #7. Remote history of DVT no longer on anticoagulation. #8. History of memory impairment, patient has a legal guardian. #9. Chronic pain syndrome with history of multiple back surgeries. #10. Depression/anxiety. #11. Chronic kidney disease stage III. #12. GERD/reflux. #13. Unspecified severe protein calorie malnutrition. #14. Diaphragmatic hernia. #15. Suspect pain seeking behavior, patient is in the emergency room frequently for various complaints including pain medication refills. Plan: Plan dated 11/06/2020. The patient was placed on oral antibiotic. From our perspective, the patient could be discharged. The patient can be followed up in the office. No additional recommendations are made. I believe her exam today is at baseline. Prognosis is guarded. Time with Patient: Less than 30
--- NOTE | 2020-11-06 10:46 | CDI ---
Documentation Clarification Form Date: 11/06/2020 10:32:22 AM From: Uma Alfaro CCS, CCDS Admit Date: 11/04/2020 06:58:00 PM Patient Name: Louise Sutton Visit Number: [id number] Discharge Date: ATTENTION: The Clinical Documentation Specialists (CDI) and [facility] Coding Staff appreciate your assistance in clarifying documentation. Please respond to the clarification below the line at the bottom and electronically sign. The CDI & [facility] Coding staff will review the response and follow-up if needed. Please note: Queries are made part of the Legal Health Record. If you have any questions, please contact the author of this message via ITS. Dr. Palmer Desir: Anemia is documented in the 11/04 ED Note as normocytic anemia. Anemia is documented in the 11/05 H/P, the 11/05 Pulmonary Consult and subsequent Progress Note as Chronic Anemia. Additional specificity regarding the type or cause of anemia is requested. History/Risk Factors per the 11/05 H/P: Recurrent aspiration pneumonia related to Esophageal Narrowing and dysphagia on TPN, Partial Gastrectomy & Kacey-en-Y Gastric Bypass at / in 1994, Severe Protein Calorie Malnutrition, BMI 16.5, COPD, DVT not on anticoagulation, Memory Impairment, Chronic Pain Syndrome status post multiple back surgeries and some narcotic seeking behavior, CKD III and Depression with Anxiety. Clinical indicators: Presented to the ED on 11/04 with SOB, Productive cough with green mucous & bilateral lower chest pain worse with coughing. ED Clinical Impression: Pneumonia, Debility on TPN, Hypomagnesemia, Hypokalemia & CKD. Hemoglobin 11/04: 10.0, 11/06 9.1 Hematocrit 11/04: 33.0, 11/06: 30.7 Treatment 11/04: INH Duoneb, po Prednisone, po Aspirin, IV fl Na Cl 1,000 mls @ 999 mls/hr q1Hr, IV Toradol, IV Dilaudid, IV Rocephin, IV Mag Sulfate/Dextrose, home med: Feosol. Home meds include: Ferrous Sulfate 325 mg Daily Please clarify the type and/or cause of anemia: [ ] Chronic blood loss anemia [ ] Drug induced anemia [ ] Nutritional anemia [ ] Anemia of chronic kidney disease [ ] Anemia of other chronic disease [ ] Unable to determine [ ] Other, please specify (Template Last Revised: May 2020) Anemia of chronic disease MTDD
[2020-11-06 13:23] VITALS: BP 116/67; PULSE 95; TEMP 98.1
[2020-11-06] MEDS ORDERED: MVI, ADULT NO.4 WITH VIT K 10 ML, TRACE (CONC-1ML/DOSE) 1 ML in AMINO ACID 5%-D15W+LYTE... IV SCH ×3 (15:00)
== END 2020-11-06 15:12 | disposition home health service (06) | DRG 177 ==
LOC: EC 15:06 → 4SSUR 18:58
PROVIDERS: ADMIT Internal Medicine; ATTEND Internal Medicine
PROC: 3E0436Z Introduction of Nutritional Substance into Central Vein, Percutaneous Approach (ICD-10-PCS; principal; 2020-11-05)
DX: J69.0 Pneumonitis due to inhalation of food and vomit (principal); E43 Unspecified severe protein-calorie malnutrition; R64 Cachexia; Z68.1 Body mass index [BMI] 19.9 or less, adult; D63.8 Anemia in other chronic diseases classified elsewhere; R13.10 Dysphagia, unspecified; N18.30 Chronic kidney disease, stage 3 unspecified; J44.9 Chronic obstructive pulmonary disease, unspecified; Z20.822 Contact with and (suspected) exposure to COVID-19; E87.6 Hypokalemia; E83.42 Hypomagnesemia; G89.4 Chronic pain syndrome; Z76.5 Malingerer [conscious simulation]; E03.9 Hypothyroidism, unspecified; E78.5 Hyperlipidemia, unspecified; F32.9 Major depressive disorder, single episode, unspecified; F41.0 Panic disorder [episodic paroxysmal anxiety]; G43.909 Migraine, unspecified, not intractable, without status migrainosus; K44.9 Diaphragmatic hernia without obstruction or gangrene; R47.02 Dysphasia; K21.9 Gastro-esophageal reflux disease without esophagitis; M48.00 Spinal stenosis, site unspecified; M89.49 Other hypertrophic osteoarthropathy, multiple sites; M54.9 Dorsalgia, unspecified; K59.00 Constipation, unspecified; Z86.718 Personal history of other venous thrombosis and embolism; Z79.51 Long term (current) use of inhaled steroids; Z79.890 Hormone replacement therapy; Z79.891 Long term (current) use of opiate analgesic; Z79.899 Other long term (current) drug therapy; Z98.84 Bariatric surgery status; Z87.01 Personal history of pneumonia (recurrent); Z86.73 Personal history of transient ischemic attack (TIA), and cerebral infarction without residual deficits; Z87.11 Personal history of peptic ulcer disease; Z90.3 Acquired absence of stomach [part of]; Z87.19 Personal history of other diseases of the digestive system; Z87.81 Personal history of (healed) traumatic fracture; Z98.890 Other specified postprocedural states; Z88.8 Allergy status to other drugs, medicaments and biological substances; Z91.048 Other nonmedicinal substance allergy status; Z82.49 Family history of ischemic heart disease and other diseases of the circulatory system; Z80.51 Family history of malignant neoplasm of kidney; Z80.52 Family history of malignant neoplasm of bladder; Z80.41 Family history of malignant neoplasm of ovary
CPT/HCPCS: 36415; 71046; 71275; 80048; 80053; 82330; 83735; 84100; 84145; 84478; 84484; 85025; 85379; 85610; 85730; 87635; 93005; 94640; 94760; 96361; 96365; 96366; 96375; 96376; 99285

== ENCOUNTER 2020-11-19 14:39 | Observation (INO) | payer MEDICARE, OTHER ==
--- NOTE | 2020-11-19 16:05 | ED ---
General Adult HPI - General Chief complaint: Recheck/Abnormal Lab/Rx Stated complaint: Picc line came out Time Seen by Provider: 11/19/20 15:43 Source: patient Mode of arrival: ambulatory Limitations: no limitations - History of Present Illness Initial comments: Dictation was produced using [employer] dictation software. please excuse any grammatical, word or spelling errors. Chief Complaint: 75-year-old female presents to the emergency department for PICC line displacement History of Present Illness: 75-year-old female she presents to the emergency department for PICC line displacement. She states she was at home given herself TPN when her PICC line fell out. According to registration later spoke with guardian patient has a history of pulling her PICC lines out intentionally. Patient has history of abdominal trauma with gastric resection. She relies on TPN for nutrition. She sometimes can have a little bit of liquid ingestion. She administers TPN to herself twice daily. The ROS documented in this emergency department record has been reviewed and confirmed by me. Those systems with pertinent positive or negative responses have been documented in the HPI. All other systems are other negative and/or noncontributory. PHYSICAL EXAM: General Impression: Alert and oriented x3, not in acute distress HEENT: Normocephalic atraumatic, extra-ocular movements intact, pupils equal and reactive to light bilaterally, mucous membranes moist. Cardiovascular: Heart regular rate and rhythm Chest: Able to complete full sentences, no retractions, no tachypnea Abdomen: abdomen soft, non-tender, non-distended, no organomegaly Musculoskeletal: Pulses present and equal in all extremities, no peripheral edema Motor: no focal deficits noted Neurological: CN II-XII grossly intact, no focal motor or sensory deficits noted Skin: Intact with no visualized rashes Psych: Normal affect and mood ED course: 75-year-old feel presents with PICC line displacement. Patient relies on PICC line for nutrition. Interventional radiology was called states that they're unable to do emergent or urgent PIC line placement. Patient be admitted overnight. PICC line consult an order was placed. Patient be admitted to Dr. broussard. - Related Data Home Medications Medication Instructions Recorded Confirmed Ferrous Sulfate [Iron (65 MG 325 mg PO DAILY 11/06/15 11/04/20 Elemental)] Levocetirizine Dihydrochloride 5 mg PO HS 05/31/17 11/04/20 [Xyzal] Levothyroxine Sodium [Synthroid] 88 mcg PO DAILY 06/07/19 11/04/20 calcitrioL [Calcitriol] 1 mcg PO MOWEFR 06/07/19 11/04/20 Albuterol Inhaler [Ventolin Hfa 1 puff INHALATION RT-Q6H PRN 10/05/19 11/04/20 Inhaler] busPIRone HCL [Buspar] 30 mg PO BID 04/14/20 11/04/20 HYDROcodone/APAP 5-325MG [Leo 1 tab PO BID PRN 04/18/20 11/04/20 5-325] Potassium Chloride ER [K-Dur 10] 10 meq PO TID 04/18/20 11/04/20 hydrOXYzine pamoate [hydrOXYzine 25 mg PO TID 04/18/20 11/04/20 PAMOATE] Budesonide/Formoterol Fumarate 2 puff INHALATION RT-BID 06/30/20 11/04/20 [Symbicort 160-4.5 Mcg Inhaler] Butalb/APAP/Caff 50-325-40Mg 1 tab PO BID PRN 06/30/20 11/04/20 [Fioricet 50-325-40] Fluticasone Nasal [place] [Flonase 1 spray EA NOSTRIL DAILY PRN 06/30/20 11/04/20 Nasal [place]] Furosemide [Lasix] 20 mg PO DAILY 06/30/20 11/04/20 Mirtazapine 45 mg PO HS 06/30/20 11/04/20 SUMAtriptan SUCCINATE [Imitrex] 50 mg PO DAILY PRN 06/30/20 11/04/20 fentaNYL 75MCG/HR PATCH [Duragesic 1 patch TRANSDERM Q72H 06/30/20 11/04/20 75MCG/HR] Magnesium Oxide 400 mg PO DAILY 10/09/20 11/04/20 DULoxetine HCL [Cymbalta] 30 mg PO DAILY 11/04/20 11/04/20 buPROPion XL [Wellbutrin XL] 150 mg PO DAILY 11/04/20 11/04/20 ursodioL [Ursodiol] 250 mg PO BID 11/04/20 11/04/20 Previous Rx's Medication Instructions Recorded Pantoprazole Sodium [Protonix] 40 mg PO BID 30 Days #60 tablet. 04/27/20 buPROPion XL [Wellbutrin XL] 300 mg PO DAILY #3 tab.er.24h 09/30/20 Cefdinir [Omnicef] 300 mg PO Q12HR 10 Days #20 capsule 11/06/20 Allergies Allergy/AdvReac Type Severity Reaction Status Date / Time denosumab [From Prolia] Allergy SEVERE Verified 11/19/20 15:17 CALCIUM LOSS DUST Allergy Itching Uncoded 11/19/20 15:17 MOLDS Allergy Itching Uncoded 11/19/20 15:17 Review of Systems ROS Statement: Those systems with pertinent positive or pertinent negative responses have been documented in the HPI. ROS Other: All systems not noted in ROS Statement are negative. 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 History of Any Multi-Drug Resistant Organisms: None Reported Past Surgical History: Back Surgery, Bowel Resection Additional Past Surgical History / Comment(s): LOWER BACK SURGERY lamenectomy/discetomy then had a revison of that sx. 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, nasal sx d/t broken nose, colonoscopy/egd, PAIN CLINIC PROCEDURES Past Anesthesia/Blood Transfusion Reactions: No Reported Reaction Additional Past Anesthesia/Blood Transfusion Reaction / Comment(s): PT RECIEVED BLOOD TRANSFUSIONS AFTER STOMACH SURGERY Past Psychological History: Anxiety, Depression, Panic Disorder Smoking Status: Never smoker Past Alcohol Use History: None Reported Past Drug Use History: None Reported - Past Family History Father Family Medical History: Cancer, Coronary Artery Disease (CAD) Additional Family Medical History / Comment(s): FATHER HAD BLADDER AND KIDNEY CANCER. FATHER HAD TB WHEN HE WAS A CHILD .FATHER AT AGE 87. Mother Family Medical History: Cancer Additional Family Medical History / Comment(s): MOTHER AT AGE 58 OF OVARIAN CANCER. General Exam Limitations: no limitations Course Vital Signs 11/19/20 15:17 Temperature 98.2 F Pulse Rate 97 Respiratory 16 Rate Blood Pressure 148/76 O2 Sat by Pulse 100 Oximetry Disposition Clinical Impression: PIC line (peripherally inserted central catheter) removal Disposition: ADMITTED IP TO THIS HOSP Condition: Fair Referrals: Ale Eli MD [Primary Care Provider] - 1-2 days
[2020-11-19] MEDS ORDERED: NALOXONE 0.4 MG/ML 1 ML VIAL IV PRN (16:23)
[2020-11-19] MEDS ORDERED: SODIUM CHLORIDE 0.9% 1,000 ML IV SCH (16:30)
[2020-11-19 17:12] LABS: Prothrombin Time 10.7 sec (9.0-12.0)
[2020-11-19 17:22] LABS: Anisocytosis Slight; Basophils # (A) 0.1 k/uL (0-0.2); Basophils % (A) 1 %; Eosinophils # (A) 0.1 k/uL (0-0.7); Eosinophils % (A) 1 %; HCT 33.4 % (34.0-46.0); HGB 10.1 gm/dL (11.4-16.0); Hypochromasia Marked; Lymphocytes # (A) 1.7 k/uL (1.0-4.8); Lymphocytes % (A) 20 %; MCH 26.2 pg (25.0-35.0); MCHC 30.2 g/dL (31.0-37.0); MCV 86.8 fL (80.0-100.0); Mean Platelet Volume 7.3; Monocytes # (A) 0.4 k/uL (0-1.0); Monocytes % (A) 4 %; Neutrophils # (A) 6.1 k/uL (1.3-7.7); Neutrophils % (A) 70 %; Platelet Count 549 k/uL (150-450); Potassium 5.1 mmol/L (3.5-5.1); RBC 3.84 m/uL (3.80-5.40); RDW 18.6 % (11.5-15.5); WBC 8.7 k/uL (3.8-10.6)
[2020-11-19] MEDS ORDERED: ALBUTEROL NEBULIZED 2.5 MG/3 ML INHALATION PRN (21:27)
[2020-11-19] MEDS: HYDROcodone/APAP 5-325MG 1 EACH TAB PO PRN (21:48)
[2020-11-19] MEDS ORDERED: MIRTAZAPINE 45 MG TABLET PO SCH (22:00)
[2020-11-19] MEDS: hydrOXYzine pamoate 25 MG CAP PO SCH (22:15)
[2020-11-19] MEDS: POTASSIUM CHLORIDE ER 10 MEQ TAB.ER.PRT PO SCH (22:17)
[2020-11-20] MEDS ORDERED: LEVOTHYROXINE 88 MCG TAB PO SCH (06:30)
[2020-11-20] MEDS: HYDROcodone/APAP 5-325MG 1 EACH TAB PO PRN ×2 (07:17→14:09)
[2020-11-20] MEDS: hydrOXYzine pamoate 25 MG CAP PO SCH (07:20)
[2020-11-20 07:24] VITALS: RESP 16
[2020-11-20] MEDS: POTASSIUM CHLORIDE ER 10 MEQ TAB.ER.PRT PO SCH (07:26)
[2020-11-20] MEDS ORDERED: SYMBICORT 160-4.5 MCG INHALER INHALATION SCH (08:00)
[2020-11-20] MEDS ORDERED: FERROUS SULFATE 325 MG TAB PO SCH (09:00)
[2020-11-20] MEDS ORDERED: buPROPion XL 150 MG TAB.ER.24H PO SCH (09:00)
[2020-11-20] MEDS ORDERED: PANTOPRAZOLE 40 MG TABLET PO SCH (09:00)
[2020-11-20] MEDS ORDERED: buPROPion XL 300 MG TAB.ER.24H PO SCH (09:00)
[2020-11-20] MEDS ORDERED: FLUTICASONE 50MCG/SPRAY NASAL 16GM EA NOSTRIL PRN (09:00)
[2020-11-20] MEDS ORDERED: DULoxetine HCL 30 MG CAPSULE.DR PO SCH (09:00)
[2020-11-20] MEDS ORDERED: ursodioL 300 MG CAP PO SCH (09:00)
[2020-11-20] MEDS ORDERED: FUROSEMIDE 20 MG TAB PO SCH (09:00)
[2020-11-20] MEDS ORDERED: BUTALB/APAP/CAFF 50-325-40MG TAB PO PRN (09:00)
[2020-11-20] MEDS ORDERED: busPIRone HCl 10 MG TAB PO SCH (09:00)
[2020-11-20] MEDS ORDERED: SUMAtriptan succinate 50 MG TAB PO PRN (09:00)
[2020-11-20] MEDS ORDERED: MAGNESIUM OXIDE 400 MG TAB PO SCH (09:00)
[2020-11-20 09:09] LABS: African American GFR (CKD) 41 (>60 ml/min/1.73 sqM); Anion Gap 15 mmol/L; Blood Urea Nitrogen 24 mg/dL (7-17); Calcium 9.4 mg/dL (8.4-10.2); Carbon Dioxide 14 mmol/L (22-30); Chloride 113 mmol/L (98-107); Glucose 131 mg/dL (74-99); Non-African American GFR(CKD) 36 (>60 ml/min/1.73 sqM); Potassium 3.9 mmol/L (3.5-5.1); Sodium 142 mmol/L (137-145)
--- NOTE | 2020-11-20 10:26 | P.NPCON ---
History of Present Illness - Reason for Consult chronic renal failure - History of Present Illness Reason for consultation: Chronic kidney disease History of present illness: Patient is a 75-year-old female seen in renal consultation for chronic kidney disease. Patient has chronic kidney disease stage IIIB with creatinine in the range of 1.45 to 1.58 this admission. In the past her creatinine has been between 1.5 and 2.5. She has an atrophic right kidney. Patient has history of gastrectomy and receives TPN daily at night. Patient states her PICC line fell out yesterday and came to the hospital to get a new PICC line. She's currently on IV fluids. Good urine output. No hematuria or dysuria. No vomiting or diarrhea. No chest pain or shortness of breath. She only tolerates some liquids by mouth. Denies use of nonsteroidals. Blood pressure stable. No fever or chills. No history of diabetes. No family history of urinary disease. She has no active complaints. No edema. Vital signs are stable. General: The patient appeared well nourished and normally developed. HEENT: Head exam is unremarkable. Neck is without jugular venous distension. LUNGS: Breath sounds decreased. HEART: Rate and Rhythm are regular. ABDOMEN: Soft, no distention. EXTREMITITES: No edema. 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 History of Any Multi-Drug Resistant Organisms: None Reported Past Surgical History: Back Surgery, Bowel Resection Additional Past Surgical History / Comment(s): LOWER BACK SURGERY lamenectomy/discetomy then had a revison of that sx. 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 PT IS ABLE TO DRIVE A CAR. 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 Smoking Status: Never smoker Past Alcohol Use History: None Reported Past Drug Use History: None Reported - Past Family History Father Family Medical History: Cancer, Coronary Artery Disease (CAD) Additional Family Medical History / Comment(s): FATHER HAD BLADDER AND KIDNEY CANCER. FATHER HAD TB WHEN HE WAS A CHILD .FATHER AT AGE 87. Mother Family Medical History: Cancer Additional Family Medical History / Comment(s): MOTHER AT AGE 58 OF OVARIAN CANCER. Medications and Allergies Home Medications Medication Instructions Recorded Confirmed Type Ferrous Sulfate [Iron (65 MG 325 mg PO DAILY 11/06/15 11/19/20 History Elemental)] Levocetirizine Dihydrochloride 5 mg PO HS 05/31/17 11/19/20 History [Xyzal] Levothyroxine Sodium [Synthroid] 88 mcg PO DAILY 06/07/19 11/19/20 History calcitrioL [Calcitriol] 1 mcg PO MOWEFR 06/07/19 11/19/20 History Albuterol Inhaler [Ventolin Hfa 1 puff INHALATION RT-Q6H PRN 10/05/19 11/19/20 History Inhaler] busPIRone HCL [Buspar] 30 mg PO BID 04/14/20 11/19/20 History HYDROcodone/APAP 5-325MG [[place] 1 tab PO BID PRN 04/18/20 11/19/20 History 5-325] Potassium Chloride ER [K-Dur 10] 10 meq PO TID 04/18/20 11/19/20 History hydrOXYzine pamoate [hydrOXYzine 25 mg PO TID 04/18/20 11/19/20 History PAMOATE] Pantoprazole Sodium [Protonix] 40 mg PO BID 30 Days #60 tablet. 04/27/20 11/19/20 Rx Budesonide/Formoterol Fumarate 2 puff INHALATION RT-BID 06/30/20 11/19/20 History [Symbicort 160-4.5 Mcg Inhaler] Butalb/APAP/Caff 50-325-40Mg 1 tab PO BID PRN 06/30/20 11/19/20 History [Fioricet 50-325-40] Fluticasone Nasal [place] [Flonase 1 spray EA NOSTRIL DAILY PRN 06/30/20 11/19/20 History Nasal [place]] Furosemide [Lasix] 20 mg PO DAILY 06/30/20 11/19/20 History Mirtazapine 45 mg PO HS 06/30/20 11/19/20 History SUMAtriptan SUCCINATE [Imitrex] 50 mg PO DAILY PRN 06/30/20 11/19/20 History fentaNYL 75MCG/HR PATCH [Duragesic 1 patch TRANSDERM Q72H 06/30/20 11/19/20 History 75MCG/HR] buPROPion XL [Wellbutrin XL] 300 mg PO DAILY #3 tab.er.24h 09/30/20 11/19/20 Rx Magnesium Oxide 400 mg PO DAILY 10/09/20 11/19/20 History DULoxetine HCL [Cymbalta] 30 mg PO DAILY 11/04/20 11/19/20 History buPROPion XL [Wellbutrin XL] 150 mg PO DAILY 11/04/20 11/19/20 History ursodioL [Ursodiol] 250 mg PO BID 11/04/20 11/19/20 History Allergies Allergy/AdvReac Type Severity Reaction Status Date / Time denosumab [From Prolia] Allergy SEVERE Verified 11/19/20 17:08 CALCIUM LOSS DUST Allergy Itching Uncoded 11/19/20 15:17 MOLDS Allergy Itching Uncoded 11/19/20 15:17 Physical Exam Vitals: Vital Signs Temp Pulse Pulse Resp BP BP Pulse Ox 11/20/20 07:00 97.9 F 71 16 123/73 96 11/20/20 02:02 98.0 F 75 18 131/71 99 11/19/20 20:31 97.8 F 99 20 169/72 100 11/19/20 20:10 98.0 F 93 18 147/69 99 11/19/20 19:58 91 18 160/94 98 11/19/20 17:13 98 F 79 18 143/79 98 11/19/20 15:17 98.2 F 97 16 148/76 100 Intake and Output 11/19/20 11/20/20 11/20/20 22:59 06:59 14:59 Intake Total 300 Balance 300 Intake: Oral 300 Other: # Voids 1 2 Weight 40.823 kg Results - Lab Results Most recent lab results Calcium 9.4 mg/dL (8.4-10.2) 11/20/20 08:05 11/19/20 17:00 11/20/20 08:05 Assessment and Plan Plan: Assessment: 1. Chronic kidney disease stage IIIB/4 secondary to atrophic right kidney. GFR at baseline. 2. History of gastrectomy. 3. Metabolic acidosis secondary to chronic kidney disease and IV fluids. 4. Chronic kidney disease mineral bone disease maintained on calcitriol. Plan: Stop normal saline. Start bicarb drip to be run at 75 mL an hour. Hold Lasix. Cleared for PICC line placement in the right arm. Avoid nephrotoxins. Continue to monitor renal function and urine output. Thank you for the consultation. I will continue to follow the patient with you during her hospital stay.
[2020-11-20 10:32] VITALS: BMI 16.5
[2020-11-20] MEDS ORDERED: DEXTROSE 5% IN WATER 1,000 ML with SODIUM BICARB (1 MEQ/ML) 150 ML IV SCH (11:30)
[2020-11-20] MEDS ORDERED: LIDOCAINE 1% INJ 10MG/ML (20 ML MDV) ONE (13:20)
[2020-11-20] MEDS ORDERED: LIDOCAINE 1% INJ 10MG/ML (20 ML MDV) SQ ONE (13:40)
[2020-11-20 14:03] VITALS: BP 156/77; PULSE 80; TEMP 98.1
--- NOTE | 2020-11-20 14:18 | IR ---
PICC LINE PLACEMENT: HISTORY: TPN PROCEDURE: Ultrasound and fluoroscopic guidance of PICC line placement. COMPLICATIONS: None ANESTHESIA: 1. 1% Lidocaine locally. FINDINGS/TECHNIQUE: The procedure was explained to the patient. The risks, complications, benefits and alternatives were discussed and any questions were answered. Informed consent was obtained. The patient was placed supine on the fluoroscopic table and prepped and draped in the usual sterile fash ion. Utilizing a 21 gauge needle and sonographic and fluoroscopic guidance, access in the right bas ilic vein was achieved and there is placement of a 0.018 guidewire. The vein is patent. A 5-Fr she ath was placed over the guidewire. The guidewire and dilator were removed and a 5-F. Double lumen PI CC line was placed through the sheath with the tip at the level of the SVC. The sheath was removed, the catheter was flushed and sutured into position. The patient was stable throughout the procedure and remained stable upon discharge from the Department of Radiology. The vein puncture was patent under ultrasound. A wilder scale image was obtained to document patency of the vein punctured. All elements of the maximal barrier technique were utilized. FLUOROSCOPY TIME: 0.3 minutes and 1 images submitted IMPRESSION: Successful PICC double lumen line placement under ultrasound and fluoroscopic guidance.
[2020-11-20] MEDS ORDERED: LORATADINE 10 MG TAB PO SCH (21:00)
[2020-11-22 10:45] LABS: ALT 18 U/L (4-34); AST 25 U/L (14-36); Albumin 3.4 g/dL (3.5-5.0); Albumin/Globulin Ratio 1.1; Alkaline Phosphatase 300 U/L (38-126); Globulin 3.2 g/dL; Magnesium 1.9 mg/dL (1.6-2.3); Phosphorus 3.5 mg/dL (2.5-4.5); Total Bilirubin 0.2 mg/dL (0.2-1.3); Total Protein 6.6 g/dL (6.3-8.2)
--- NOTE | 2020-11-22 13:33 | P.HPIM ---
History of Present Illness H&P Date: 11/20/20 Louise Sutton, is a 75 year old male who presented to [facility] emergency room with a chief complaint of displaced PICC line that was accidentally pulled out of place patient uses PICC line for TPN He was evaluated in the emergency room vital examination on presentation revealed a temperature of 98.2 pulse 97 respirations 16 blood pressure 148/76 pulse ox 100% on room air Laboratory data reveals a white count of 8.7 hemoglobin 10.1 platelet count 549 sodium 141 potassium 5.1 chloride 113 CO2 18 BUN 29 creatinine 1.58 Testing in the emergency room revealed no EKG or x-rays done in the emergency room Patient was admitted to medical floor for replacement of PICC line Past Medical History Past Medical History: Asthma, Deep Vein Thrombosis (DVT), GERD/Reflux, Memory Impairment Additional Past Medical History / Comment(s): 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 History of Any Multi-Drug Resistant Organisms: None Reported Past Surgical History: Back Surgery, Bowel Resection Additional Past Surgical History / Comment(s): LOWER BACK SURGERY lamenectomy/discetomy then had a revison of that sx. 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 PT IS ABLE TO DRIVE A CAR. 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 Smoking Status: Never smoker Past Alcohol Use History: None Reported Past Drug Use History: None Reported - Past Family History Father Family Medical History: Cancer, Coronary Artery Disease (CAD) Additional Family Medical History / Comment(s): FATHER HAD BLADDER AND KIDNEY CANCER. FATHER HAD TB WHEN HE WAS A CHILD .FATHER AT AGE 87. Mother Family Medical History: Cancer Additional Family Medical History / Comment(s): MOTHER AT AGE 58 OF OVARIAN CANCER. Medications and Allergies Home Medications Medication Instructions Recorded Confirmed Type Ferrous Sulfate [Iron (65 MG 325 mg PO DAILY 11/06/15 11/19/20 History Elemental)] Levocetirizine Dihydrochloride 5 mg PO HS 05/31/17 11/19/20 History [Xyzal] Levothyroxine Sodium [Synthroid] 88 mcg PO DAILY 06/07/19 11/19/20 History calcitrioL [Calcitriol] 1 mcg PO MOWEFR 06/07/19 11/19/20 History Albuterol Inhaler [Ventolin Hfa 1 puff INHALATION RT-Q6H PRN 10/05/19 11/19/20 History Inhaler] busPIRone HCL [Buspar] 30 mg PO BID 04/14/20 11/19/20 History HYDROcodone/APAP 5-325MG [[place] 1 tab PO BID PRN 04/18/20 11/19/20 History 5-325] Potassium Chloride ER [K-Dur 10] 10 meq PO TID 04/18/20 11/19/20 History hydrOXYzine pamoate [hydrOXYzine 25 mg PO TID 04/18/20 11/19/20 History PAMOATE] Pantoprazole Sodium [Protonix] 40 mg PO BID 30 Days #60 tablet. 04/27/20 11/19/20 Rx Budesonide/Formoterol Fumarate 2 puff INHALATION RT-BID 06/30/20 11/19/20 History [Symbicort 160-4.5 Mcg Inhaler] Butalb/APAP/Caff 50-325-40Mg 1 tab PO BID PRN 06/30/20 11/19/20 History [Fioricet 50-325-40] Fluticasone Nasal [place] [Flonase 1 spray EA NOSTRIL DAILY PRN 06/30/20 11/19/20 History Nasal [place]] Furosemide [Lasix] 20 mg PO DAILY 06/30/20 11/19/20 History Mirtazapine 45 mg PO HS 06/30/20 11/19/20 History SUMAtriptan SUCCINATE [Imitrex] 50 mg PO DAILY PRN 06/30/20 11/19/20 History fentaNYL 75MCG/HR PATCH [Duragesic 1 patch TRANSDERM Q72H 06/30/20 11/19/20 History 75MCG/HR] buPROPion XL [Wellbutrin XL] 300 mg PO DAILY #3 tab.er.24h 09/30/20 11/19/20 Rx Magnesium Oxide 400 mg PO DAILY 10/09/20 11/19/20 History DULoxetine HCL [Cymbalta] 30 mg PO DAILY 11/04/20 11/19/20 History buPROPion XL [Wellbutrin XL] 150 mg PO DAILY 11/04/20 11/19/20 History ursodioL [Ursodiol] 250 mg PO BID 11/04/20 11/19/20 History Allergies Allergy/AdvReac Type Severity Reaction Status Date / Time denosumab [From Prolia] Allergy SEVERE Verified 11/19/20 17:08 CALCIUM LOSS DUST Allergy Itching Uncoded 11/19/20 15:17 MOLDS Allergy Itching Uncoded 11/19/20 15:17 Physical Exam Vitals: Vital Signs Temp Pulse Pulse Resp BP BP Pulse Ox 11/20/20 07:00 97.9 F 71 16 123/73 96 11/20/20 02:02 98.0 F 75 18 131/71 99 11/19/20 20:31 97.8 F 99 20 169/72 100 11/19/20 20:10 98.0 F 93 18 147/69 99 11/19/20 19:58 91 18 160/94 98 11/19/20 17:13 98 F 79 18 143/79 98 11/19/20 15:17 98.2 F 97 16 148/76 100 Intake and Output 11/19/20 11/20/20 11/20/20 22:59 06:59 14:59 Intake Total 300 Balance 300 Intake: Oral 300 Other: # Voids 1 2 Weight 40.823 kg In general patient is alert and oriented x 3 in no distress HEENT head normocephalic and atraumatic Neck is supple no JVD no goiter no lymphadenopathy no carotid bruit Chest examination is clear to auscultation no crackles no wheezing Cardiac exam reveals regular heart sounds S1 and S2 no gallops no murmurs Abdomen is soft nontender no organomegaly with normal bowel sounds Extremity exam reveals no edema no cyanosis or clubbing Neurological examination reveals no gross focal deficits Results CBC & Chem 7: 11/19/20 17:00 11/20/20 08:05 Labs: Abnormal Lab Results - Last 24 Hours (Table) 11/19/20 11/19/20 11/20/20 Range/Units 17:00 17:00 08:05 Hgb 10.1 L (11.4-16.0) gm/dL Hct 33.4 L (34.0-46.0) % MCHC 30.2 L (31.0-37.0) g/dL RDW 18.6 H (11.5-15.5) % Plt Count 549 H (150-450) k/uL Chloride 113 H 113 H (98-107) mmol/L Carbon Dioxide 18 L 14 L (22-30) mmol/L BUN 29 H 24 H (7-17) mg/dL Creatinine 1.58 H 1.45 H (0.52-1.04) mg/dL Glucose 131 H (74-99) mg/dL Thrombosis Risk Factor Assmnt - Choose All That Apply Any of the Below Risk Factors Present?: No Other Risk Factors: No Thrombosis Risk Factor Assessment Level: Very Low Risk Assessment and Plan Plan: Lost IV access due to pulled PICC line accidentally Patient admitted for PICC line replacement
--- NOTE | 2020-11-22 13:36 | P.DS ---
Providers Date of admission: 11/19/20 16:23 Expected date of discharge: 11/22/20 Attending physician: Palmer Desir Consults: 11/20/20 08:45 Consult Physician Urgent Consulting Provider: Nohelia Long Consult Reason/Comments: gfr less than 45 (32) Needs PICC and which arm recommedation Do you want consulting provider notified?: Yes Primary care physician: Ale Eli [facility] Course: Diagnosis on discharge: Accidentally pulled PICC line Patient admitted for PICC line replacement Hospital course: Louise Sutton, is a 75 year old male who presented to [facility] emergency room with a chief complaint of displaced PICC line that was accidentally pulled out of place patient uses PICC line for TPN He was evaluated in the emergency room vital examination on presentation revealed a temperature of 98.2 pulse 97 respirations 16 blood pressure 148/76 pulse ox 100% on room air Laboratory data reveals a white count of 8.7 hemoglobin 10.1 platelet count 549 sodium 141 potassium 5.1 chloride 113 CO2 18 BUN 29 creatinine 1.58 Testing in the emergency room revealed no EKG or x-rays done in the emergency room Patient was admitted to medical floor for replacement of PICC line On 11/20/2020 patient underwent PICC line replacement by radiology She was doing well and denied any complaints She was discharged home to continue with her current medications and current TPN Patient Condition at Discharge: Fair Plan - Discharge Summary Discharge Rx Participant: No New Discharge Prescriptions: Continue Ferrous Sulfate [Iron (65 MG Elemental)] 325 mg PO DAILY Levocetirizine Dihydrochloride [Xyzal] 5 mg PO HS calcitrioL [Calcitriol] 1 mcg PO MOWEFR Levothyroxine Sodium [Synthroid] 88 mcg PO DAILY Albuterol Inhaler [Ventolin Hfa Inhaler] 1 puff INHALATION RT-Q6H PRN PRN Reason: Shortness Of Breath busPIRone HCL [Buspar] 30 mg PO BID hydrOXYzine pamoate [hydrOXYzine PAMOATE] 25 mg PO TID Potassium Chloride ER [K-Dur 10] 10 meq PO TID HYDROcodone/APAP 5-325MG [[place] 5-325] 1 tab PO BID PRN PRN Reason: Migraine Headache Pantoprazole Sodium [Protonix] 40 mg PO BID 30 Days #60 tablet. fentaNYL 75MCG/HR PATCH [Duragesic 75MCG/HR] 1 patch TRANSDERM Q72H Budesonide/Formoterol Fumarate [Symbicort 160-4.5 Mcg Inhaler] 2 puff INHALATION RT-BID Butalb/APAP/Caff 50-325-40Mg [Fioricet 50-325-40] 1 tab PO BID PRN PRN Reason: Migraine Headache Fluticasone Nasal [place] [Flonase Nasal [place]] 1 spray EA NOSTRIL DAILY PRN PRN Reason: Allergy Symptoms Furosemide [Lasix] 20 mg PO DAILY Mirtazapine 45 mg PO HS SUMAtriptan SUCCINATE [Imitrex] 50 mg PO DAILY PRN PRN Reason: Migraine Headache buPROPion XL [Wellbutrin XL] 150 mg PO DAILY ursodioL [Ursodiol] 250 mg PO BID buPROPion XL [Wellbutrin XL] 300 mg PO DAILY #3 tab.er.24h Magnesium Oxide 400 mg PO DAILY DULoxetine HCL [Cymbalta] 30 mg PO DAILY Discharge Medication List Ferrous Sulfate [Iron (65 MG Elemental)] 325 mg PO DAILY 11/06/15 [History] Levocetirizine Dihydrochloride [Xyzal] 5 mg PO HS 05/31/17 [History] Levothyroxine Sodium [Synthroid] 88 mcg PO DAILY 06/07/19 [History] calcitrioL [Calcitriol] 1 mcg PO MOWEFR 06/07/19 [History] Albuterol Inhaler [Ventolin Hfa Inhaler] 1 puff INHALATION RT-Q6H PRN 10/05/19 [History] busPIRone HCL [Buspar] 30 mg PO BID 04/14/20 [History] HYDROcodone/APAP 5-325MG [[place] 5-325] 1 tab PO BID PRN 04/18/20 [History] Potassium Chloride ER [K-Dur 10] 10 meq PO TID 04/18/20 [History] hydrOXYzine pamoate [hydrOXYzine PAMOATE] 25 mg PO TID 04/18/20 [History] Pantoprazole Sodium [Protonix] 40 mg PO BID 30 Days #60 tablet. 04/27/20 [Rx] Budesonide/Formoterol Fumarate [Symbicort 160-4.5 Mcg Inhaler] 2 puff INHALATION RT-BID 06/30/20 [History] Butalb/APAP/Caff 50-325-40Mg [Fioricet 50-325-40] 1 tab PO BID PRN 06/30/20 [History] Fluticasone Nasal [place] [Flonase Nasal [place]] 1 spray EA NOSTRIL DAILY PRN 06/30/20 [History] Furosemide [Lasix] 20 mg PO DAILY 06/30/20 [History] Mirtazapine 45 mg PO HS 06/30/20 [History] SUMAtriptan SUCCINATE [Imitrex] 50 mg PO DAILY PRN 06/30/20 [History] fentaNYL 75MCG/HR PATCH [Duragesic 75MCG/HR] 1 patch TRANSDERM Q72H 06/30/20 [History] buPROPion XL [Wellbutrin XL] 300 mg PO DAILY #3 tab.er.24h 09/30/20 [Rx] Magnesium Oxide 400 mg PO DAILY 10/09/20 [History] DULoxetine HCL [Cymbalta] 30 mg PO DAILY 11/04/20 [History] buPROPion XL [Wellbutrin XL] 150 mg PO DAILY 11/04/20 [History] ursodioL [Ursodiol] 250 mg PO BID 11/04/20 [History] Follow up Appointment(s)/Referral(s): Ale Eli MD [Primary Care Provider] - 11/22/20 1:[address] [facility], [NON-STAFF] - 1 Week Abisai Carter DO [STAFF PHYSICIAN] - 12/12/20 9:20 am (1-2 week followup) Patient Instructions/Handouts: Peripherally Inserted Central Catheters and Midline Catheters (DC)
== END 2020-11-20 14:56 ==
LOC: EC 14:39 → 6NMEDSUR 16:23
PROVIDERS: ADMIT Internal Medicine; ATTEND Internal Medicine
DX: T82.524A Displacement of infusion catheter, initial encounter (principal); Y71.2 Prosthetic and other implants, materials and accessory cardiovascular devices associated with adverse incidents; N18.32 Chronic kidney disease, stage 3b; E87.2 Acidosis; N26.1 Atrophy of kidney (terminal); M89.8X9 Other specified disorders of bone, unspecified site; J45.909 Unspecified asthma, uncomplicated; K21.9 Gastro-esophageal reflux disease without esophagitis; M48.00 Spinal stenosis, site unspecified; M19.90 Unspecified osteoarthritis, unspecified site; F41.0 Panic disorder [episodic paroxysmal anxiety]; F32.9 Major depressive disorder, single episode, unspecified; J30.89 Other allergic rhinitis; Z79.51 Long term (current) use of inhaled steroids; Z79.890 Hormone replacement therapy; Z79.899 Other long term (current) drug therapy; Z88.8 Allergy status to other drugs, medicaments and biological substances; Z86.73 Personal history of transient ischemic attack (TIA), and cerebral infarction without residual deficits; Z87.19 Personal history of other diseases of the digestive system; Z87.11 Personal history of peptic ulcer disease; Z86.69 Personal history of other diseases of the nervous system and sense organs; Z98.1 Arthrodesis status; Z87.81 Personal history of (healed) traumatic fracture; Z90.3 Acquired absence of stomach [part of]; Z82.49 Family history of ischemic heart disease and other diseases of the circulatory system; Z80.51 Family history of malignant neoplasm of kidney; Z80.41 Family history of malignant neoplasm of ovary; Z83.1 Family history of other infectious and parasitic diseases
CPT/HCPCS: 36573; 96360; 96361; 99285; 94640; 80051; 80053; 82565; 83735; 84100; 84478; 84520; 85025; 85610; G0378 ×2; C1751; C1769; J2001; 80048

== ENCOUNTER 2020-12-13 13:25 | Emergency (ER) | payer MEDICARE, OTHER ==
[2020-12-13 13:31] VITALS: BP 177/74; PULSE 73; RESP 20; TEMP 98.4
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
[2020-12-13] MEDS ORDERED: HYDROmorphone 1 MG/ML 1 ML SYRINGE IM STA (14:20)
== END 2020-12-13 15:33 | disposition home or self-care (01) ==
LOC: EC 13:25
DX: R51.9 Headache, unspecified (principal); J45.909 Unspecified asthma, uncomplicated; Z76.0 Encounter for issue of repeat prescription; Z86.69 Personal history of other diseases of the nervous system and sense organs; Z79.51 Long term (current) use of inhaled steroids; Z91.09 Other allergy status, other than to drugs and biological substances; Z88.8 Allergy status to other drugs, medicaments and biological substances
CPT/HCPCS: 99283; 96372; J1170

== ENCOUNTER → 2021-01-28 | Outpatient (CLI) | payer MEDICARE, OTHER ==
--- NOTE | 2021-01-29 07:16 | CT ---
EXAMINATION TYPE: CT chest wo con DATE OF EXAM: 01/28/2021 COMPARISON: CTA CT November 04 2020 and older studies HISTORY: Pneumonia. Had to do w/out based on labs, G-24, C-2.02, B-36. Dr. Laura mccall'd w/o study CT DLP: 89.10 mGycm. Automated Exposure Control for Dose Reduction was Utilized. TECHNIQUE: CT scan of the thorax is performed without IV contrast. FINDINGS: LUNGS: Focal irregular parenchymal scarring in the right mid lung extending from hilum to pleural emely face is redemonstrated. There is persistent lucency posteriorly suggesting cavitation or irregular br onchiectasis. No right-sided pleural effusion. There is trace left-sided pleural effusion on current study with left basilar moderate scarring that has some nodular component again seen. There is persis tent masslike consolidation in the lingula axial image 27 on current study measuring approximately 2. 6 x 2.3 cm not significantly changed from most recent CT. Some right-sided volume loss with tracheal shift again seen. No pneumothorax noted bilaterally. MEDIASTINUM: Lack of IV contrast is noted to limit evaluation for mediastinal and especially hilar ad enopathy. There are no definitive greater than 1 cm mediastinal lymph nodes. No cardiomegaly or per icardial effusion is seen. Stable right internal jugular Mediport catheter. Ascending aorta measures up to 3.8 cm diameter OTHER: Surgical change epigastric region redemonstrated with stable small to moderate size hiatal her godwin. Underlying scoliotic curvature. IMPRESSION: Chronic right midlung nodular scarring with right-sided volume loss. Tiny left pleural ef fusion remains present and improved from prior. Left lung nodular scarring redemonstrated mid to lowe r lung level. Cannot exclude underlying lingular nodule. Correlate clinically. Follow-up PET/CT is re commended to further evaluate.
== END | disposition home or self-care (01) ==
LOC: RADCTMAIN 15:24
PROVIDERS: ATTEND Internal Medicine Critical Care Medicine
DX: J90 Pleural effusion, not elsewhere classified (principal)
CPT/HCPCS: 36415; 71250; 82565; 84520

== ENCOUNTER 2021-02-22 11:17 | Day surgery (SDC) | payer MEDICARE, OTHER ==
[2021-02-20 16:32] VITALS: BMI 17.2
[~2021-02-22 11:17] MED LIST: ALBUTEROL NEB (CONC) 2.5 MG/0.5 ML INHALATION ONE; ATROPINE SULFATE 0.4 MG/ML 1 ML VIAL IM ONE; LACTATED RINGERS 1,000 ML IV SCH; LIDOCAINE 1% (10MG/ML) FOR IV START INTRADERMA PRN; LIDOCAINE 2% (PF) 20 MG/ML 5 ML VIAL INHALATION ONE; LIDOCAINE VISCOUS 300 MG/15 ML CUP MUCOUS MEM ONE; SODIUM CHLORIDE 0.9% 1,000 ML IV SCH
[2021-02-22 11:51] VITALS: TEMP 98.2
[2021-02-22] MEDS ORDERED: fentaNYL (PF) 50 MCG/ML 2 ML AMP ONE (12:19)
[2021-02-22] MEDS ORDERED: KETAMINE 10 MG/ML 20 ML VIAL ONE (12:19)
[2021-02-22] MEDS ORDERED: PROPOFOL 10 MG/ML 20 ML VIAL IV ONE (12:19)
[2021-02-22] MEDS ORDERED: LIDOCAINE 1% INJ 10MG/ML (20 ML MDV) ONE (12:19)
[2021-02-22] MEDS ORDERED: MIDAZOLAM 2 MG/2 ML VIAL ONE (12:19)
[2021-02-22] MEDS ORDERED: LIDOCAINE 2% INJ 20 MG/ML INTRATRACH ONE (12:26)
[2021-02-22 12:52] VITALS: RESP 20
--- NOTE | 2021-02-22 13:26 | OP ---
OPERATIVE REPORT PROCEDURE: Bronchoscopy, airway examination, therapeutic lavage, BAL right middle lobe brushes right middle. PREOP DIAGNOSIS: Chronic pneumonia. POSTOP DIAGNOSIS: Chronic pneumonia. OPERATORS: Dr. Sanchez and Dr. Grace. The patient's procedure took place in the endoscopy room #1. There was informed consent and universal timeout. ANESTHESIA: Anesthesia provided general anesthesia. DESCRIPTION OF PROCEDURE: After the patient was sedated and being fully monitored, the bronchoscope was inserted through the right nostril. It passed through the right nasopharynx into the oropharynx. The hypopharynx was identified and topicalized. The hypopharyngeal structures, including anterior commissure, true cords, false cords, arytenoids, piriform sinuses, right and left valleculae and epiglottis all appeared relatively normal. After topicalization, bronchoscope was pushed through the glottic opening into the trachea. The trachea appeared relatively normal. There were some thick secretions noted in the distal trachea. Tracheal sky was sharp. The right and left mainstem were topicalized. The right upper lobe and its 3 segments right middle lobe and its 2 segments, right lower lobe 5 segments, left upper lobe proper and its 2 segments, lingula and its 2 segments and the left lower lobe and its 4 segments were all found to have similar findings of diffuse airway erythema and hyperemia. There were thick secretions noted throughout. There was no dominant mass or tumor. The patient had some mild mucosal friability. The bronchoscope was wedged into the right middle lobe. We did a formal BAL and 30 mL of fluid was recovered. In addition, we did brushings in the right middle lobe. The patient tolerated the procedure well without complication. There was no bleeding. The bronchoscope was withdrawn and the patient will be recovered. MMODL / IJN: [id number] /
[2021-02-22 13:30] VITALS: BP 124/79; PULSE 110
[2021-02-22 21:10] LABS: Appearance,BF Hazy; RBC, Body Fluid 1490 /uL
[2021-02-22 21:11] LABS: Nucleated Cells, Body Fluid 275 /uL
[2021-02-22 21:13] LABS: Mononuclear WBC,Body Fluid 20 %; Polynuclear WBC,Body Fluid 80 %; Total Cells Counted,Body Fluid 100
== END 2021-02-22 13:32 | disposition home or self-care (01) ==
LOC: ORWHC2ENDO 11:17
PROVIDERS: ATTEND Internal Medicine Critical Care Medicine
DX: J18.9 Pneumonia, unspecified organism (principal); Z88.7 Allergy status to serum and vaccine; Z88.8 Allergy status to other drugs, medicaments and biological substances; Z91.048 Other nonmedicinal substance allergy status; Z79.899 Other long term (current) drug therapy; K21.9 Gastro-esophageal reflux disease without esophagitis; K59.09 Other constipation; M19.90 Unspecified osteoarthritis, unspecified site; Z86.73 Personal history of transient ischemic attack (TIA), and cerebral infarction without residual deficits; Z86.718 Personal history of other venous thrombosis and embolism; M48.00 Spinal stenosis, site unspecified; J44.9 Chronic obstructive pulmonary disease, unspecified; N18.9 Chronic kidney disease, unspecified; E07.9 Disorder of thyroid, unspecified
CPT/HCPCS: 87798 ×3; 87496; 87498; 87529; 88104; 88108; 88305; 89050; 87252; 87502; 87634; 87070; 87205; 87116; 87102; 87077; 87186; 87206; 31623; 31624; J2001 ×2; J2250; J0461; J3010; J2704

== ENCOUNTER 2021-03-11 13:35 | Inpatient (IN) | payer MEDICARE, OTHER ==
[2021-03-11] MEDS ORDERED: SODIUM CHLORIDE 0.9% 500 ML 500 ML IV SCH (13:45)
--- NOTE | 2021-03-11 14:07 | ED ---
General Adult HPI - General Chief complaint: Altered Mental Status Stated complaint: AMS/fever Time Seen by Provider: 03/11/21 13:40 Source: patient, EMS, RN notes reviewed, old records reviewed Mode of arrival: EMS - History of Present Illness Initial comments: This is a 75-year-old female presents emergency Department complaining of altered mental status. According to the nurse that was seeing the patient in her house the patient had been hallucinating visually and auditory. Patient seems to think it secondary to a change in the narcotics she has been on however according to the regional retail sales manager the patient was hallucinating in the emesis well. Patient also had a fever per EMS but we did not get a fever in the emergency department. Patient had no complaints of difficulty breathing shortness of breath. Patient complains of chest pain. Patient denies abdominal pain patient has nausea vomiting diarrhea. Patient headache patient with numbness weakness. Patient denied lightheadedness or dizziness. Patient agrees that she was hallucinating and she states she was seen people in her house that weren't there she could hear them talking. Patient states she believes this is all related to her recent change in narcotics. Patient states the narcotic change was put back to her fentanyl patch like it was a few days ago. Patient denies any headache patient denies any numbness weakness. - Related Data Home Medications Medication Instructions Recorded Confirmed Ferrous Sulfate [Iron (65 MG 325 mg PO DAILY 11/06/15 02/20/21 Elemental)] Levocetirizine Dihydrochloride 5 mg PO HS 05/31/17 02/20/21 [Xyzal] Levothyroxine Sodium [Synthroid] 88 mcg PO DAILY 06/07/19 02/20/21 calcitrioL [Calcitriol] 1 mcg PO MOWEFR 06/07/19 02/20/21 Albuterol Inhaler [Ventolin Hfa 1 puff INHALATION RT-Q6H PRN 10/05/19 02/20/21 Inhaler] busPIRone HCL [Buspar] 30 mg PO BID 04/14/20 02/20/21 Potassium Chloride ER [K-Dur 10] 30 meq PO DAILY 04/18/20 02/20/21 hydrOXYzine pamoate [hydrOXYzine 25 mg PO TID 04/18/20 02/20/21 PAMOATE] Budesonide/Formoterol Fumarate 2 puff INHALATION RT-BID 06/30/20 02/20/21 [Symbicort 160-4.5 Mcg Inhaler] Butalb/APAP/Caff 50-325-40Mg 1 tab PO BID PRN 06/30/20 02/20/21 [Fioricet 50-325-40] Fluticasone Nasal [place] [Flonase 1 spray EA NOSTRIL DAILY PRN 06/30/20 02/20/21 Nasal [place]] Mirtazapine 45 mg PO HS 06/30/20 02/20/21 SUMAtriptan SUCCINATE [Imitrex] 50 mg PO DAILY PRN 06/30/20 02/20/21 Magnesium Oxide 400 mg PO DAILY 10/09/20 02/20/21 DULoxetine HCL [Cymbalta] 30 mg PO DAILY 11/04/20 02/20/21 buPROPion XL [Wellbutrin XL] 150 mg PO HS 11/04/20 02/20/21 ursodioL [Ursodiol] 250 mg PO BID 11/04/20 02/20/21 HYDROcodone/APAP 10-325MG [[place] 1 tab PO BID PRN 12/13/20 02/20/21 10-325] Tpn 1 each IV DAILY 02/20/21 buPROPion XL [Wellbutrin XL] 300 mg PO QAM 02/20/21 02/20/21 Previous Rx's Medication Instructions Recorded Pantoprazole Sodium [Protonix] 40 mg PO BID 30 Days #60 tablet. 04/27/20 Furosemide [Lasix] 20 mg PO DAILY #6 tab 12/13/20 Mirtazapine [Remeron] 45 mg PO HS #6 tablet 12/13/20 fentaNYL 75MCG/HR PATCH [Duragesic 1 patch TRANSDERM Q72H 3 Days #3 12/13/20 75MCG/HR] patch Allergies Allergy/AdvReac Type Severity Reaction Status Date / Time denosumab [From Prolia] Allergy SEVERE Verified 02/20/21 14:59 CALCIUM LOSS DUST Allergy Itching Uncoded 02/20/21 14:59 MOLDS Allergy Itching Uncoded 02/20/21 14:59 Review of Systems ROS Statement: Those systems with pertinent positive or pertinent negative responses have been documented in the HPI. ROS Other: All systems not noted in ROS Statement are negative. 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 History of Any Multi-Drug Resistant Organisms: None Reported Past Surgical History: Back Surgery, Bowel Resection, Hysterectomy, Joint Replacement Additional Past Surgical History / Comment(s): LOWER BACK SURGERY lamenectomy/discetomy then had a revison of that sx. 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, nasal sx d/t broken nose, colonoscopy/egd, PAIN CLINIC PROCEDURES, PORT A CATH INSERTION, LT ADEOLA, Past Anesthesia/Blood Transfusion Reactions: No Reported Reaction Additional Past Anesthesia/Blood Transfusion Reaction / Comment(s): PT RECIEVED BLOOD TRANSFUSIONS AFTER STOMACH SURGERY Past Psychological History: Anxiety, Depression, Panic Disorder Smoking Status: Never smoker Past Alcohol Use History: None Reported Past Drug Use History: None Reported - Past Family History Father Family Medical History: Cancer, Coronary Artery Disease (CAD) Additional Family Medical History / Comment(s): FATHER HAD BLADDER AND KIDNEY CANCER. FATHER HAD TB WHEN HE WAS A CHILD .FATHER AT AGE 87. Mother Family Medical History: Cancer Additional Family Medical History / Comment(s): MOTHER AT AGE 58 OF OVARIAN CANCER. General Exam - General Exam Comments Initial Comments: GENERAL: Patient is well-developed and well-nourished. Patient is nontoxic and well-hydrated and is in mild distress. ENT: Neck is soft and supple. No significant lymphadenopathy is noted. Oropharynx is clear. Moist mucous membranes. Neck has full range of motion without eliciting any pain. EYES: The sclera were anicteric and conjunctiva were pink and moist. Extraocular movements were intact and pupils were equal round and reactive to light. Eyelids were unremarkable. PULMONARY: Unlabored respirations. Good breath sounds bilaterally. No audible rales rhonchi or wheezing was noted. CARDIOVASCULAR: There is a regular rate and rhythm without any murmurs gallops or rubs. ABDOMEN: Soft and nontender with normal bowel sounds. SKIN: Skin is clear with no lesions or rashes and otherwise unremarkable. NEUROLOGIC: Patient is alert and oriented x3. Cranial nerves II through XII are grossly intact. Motor and sensory are also intact. Normal speech, volume and content. Symmetrical smile. MUSCULOSKELETAL: Normal extremities with adequate strength and full range of motion. LYMPHATICS: No significant lymphadenopathy is noted PSYCHIATRIC: Normal psychiatric evaluation. Course Vital Signs 03/11/21 13:38 Temperature 98.5 F Pulse Rate 112 H Respiratory 16 Rate Blood Pressure 120/89 O2 Sat by Pulse 93 L Oximetry Medical Decision Making - Medical Decision Making EKG shows sinus tachycardia at 108 bpm FL interval is 118 QRS is 76 QT interval 348 QTC is 466 per patient's EKG shows no ST segment elevation or depression. Chest x-ray shows bilateral pneumonia worse on the left than it was previously seen. I started Zosyn at 312 with the same time I saw the chest x-ray. Spoke with Dr. Desir he agreed to admit the patient admitted the patient wrote admitting orders. - Lab Data Result diagrams: 03/11/21 14:07 03/11/21 14:07 Lab Results 03/11/21 03/11/21 03/11/21 Range/Units 13:42 14:07 14:07 WBC 11.6 H (3.8-10.6) k/uL RBC 3.50 L (3.80-5.40) m/uL Hgb 8.5 L (11.4-16.0) gm/dL Hct 27.8 L (34.0-46.0) % MCV 79.6 L (80.0-100.0) fL MCH 24.4 L (25.0-35.0) pg MCHC 30.6 L (31.0-37.0) g/dL RDW 20.6 H (11.5-15.5) % Plt Count 606 H (150-450) k/uL MPV 6.6 Neutrophils % 84 % Lymphocytes % 7 % Monocytes % 6 % Eosinophils % 1 % Basophils % 0 % Neutrophils # 9.7 H (1.3-7.7) k/uL Lymphocytes # 0.8 L (1.0-4.8) k/uL Monocytes # 0.7 (0-1.0) k/uL Eosinophils # 0.1 (0-0.7) k/uL Basophils # 0.0 (0-0.2) k/uL Hypochromasia Slight Poikilocytosis Slight Anisocytosis Moderate Microcytosis Slight PT 10.5 (9.0-12.0) sec INR 1.0 (<1.2) APTT 27.6 (22.0-30.0) sec Sodium (137-145) mmol/L Potassium (3.5-5.1) mmol/L Chloride (98-107) mmol/L Carbon Dioxide (22-30) mmol/L Anion Gap mmol/L BUN (7-17) mg/dL Creatinine (0.52-1.04) mg/dL Est GFR (CKD-EPI)AfAm (>60 ml/min/1.73 sqM) Est GFR (CKD-EPI)NonAf (>60 ml/min/1.73 sqM) Glucose (74-99) mg/dL Plasma Lactic Acid Jonah (0.7-2.0) mmol/L Calcium (8.4-10.2) mg/dL Total Bilirubin (0.2-1.3) mg/dL AST (14-36) U/L ALT (4-34) U/L Alkaline Phosphatase (38-126) U/L Troponin I (0.000-0.034) ng/mL Total Protein (6.3-8.2) g/dL Albumin (3.5-5.0) g/dL Urine Color Yellow Urine Appearance Clear (Clear) Urine pH 5.5 (5.0-8.0) Ur Specific [place] 1.011 (1.001-1.035) Urine Protein 1+ H (Negative) Urine Glucose (UA) Negative (Negative) Urine Ketones Negative (Negative) Urine Blood Small H (Negative) Urine Nitrite Negative (Negative) Urine Bilirubin Negative (Negative) Urine Urobilinogen <2.0 (<2.0) mg/dL Ur Leukocyte Esterase Negative (Negative) Urine RBC <1 (0-5) /hpf Urine WBC <1 (0-5) /hpf Ur Squamous Epith Cells <1 (0-4) /hpf Urine Mucus Rare H (None) /hpf Coronavirus (PCR) (Not Detectd) 03/11/21 03/11/21 03/11/21 Range/Units 14:07 14:07 14:07 WBC (3.8-10.6) k/uL RBC (3.80-5.40) m/uL Hgb (11.4-16.0) gm/dL Hct (34.0-46.0) % MCV (80.0-100.0) fL MCH (25.0-35.0) pg MCHC (31.0-37.0) g/dL RDW (11.5-15.5) % Plt Count (150-450) k/uL MPV Neutrophils % % Lymphocytes % % Monocytes % % Eosinophils % % Basophils % % Neutrophils # (1.3-7.7) k/uL Lymphocytes # (1.0-4.8) k/uL Monocytes # (0-1.0) k/uL Eosinophils # (0-0.7) k/uL Basophils # (0-0.2) k/uL Hypochromasia Poikilocytosis Anisocytosis Microcytosis PT (9.0-12.0) sec INR (<1.2) APTT (22.0-30.0) sec Sodium 129 L (137-145) mmol/L Potassium 3.9 (3.5-5.1) mmol/L Chloride 91 L (98-107) mmol/L Carbon Dioxide 26 (22-30) mmol/L Anion Gap 12 mmol/L BUN 27 H (7-17) mg/dL Creatinine 1.68 H (0.52-1.04) mg/dL Est GFR (CKD-EPI)AfAm 34 (>60 ml/min/1.73 sqM) Est GFR (CKD-EPI)NonAf 30 (>60 ml/min/1.73 sqM) Glucose 109 H (74-99) mg/dL Plasma Lactic Acid Jonah 0.9 (0.7-2.0) mmol/L Calcium 8.3 L (8.4-10.2) mg/dL Total Bilirubin 0.4 (0.2-1.3) mg/dL AST 48 H (14-36) U/L ALT 6 (4-34) U/L Alkaline Phosphatase 299 H (38-126) U/L Troponin I <0.012 (0.000-0.034) ng/mL Total Protein 6.5 (6.3-8.2) g/dL Albumin 3.5 (3.5-5.0) g/dL Urine Color Urine Appearance (Clear) Urine pH (5.0-8.0) Ur Specific [place] (1.001-1.035) Urine Protein (Negative) Urine Glucose (UA) (Negative) Urine Ketones (Negative) Urine Blood (Negative) Urine Nitrite (Negative) Urine Bilirubin (Negative) Urine Urobilinogen (<2.0) mg/dL Ur Leukocyte Esterase (Negative) Urine RBC (0-5) /hpf Urine WBC (0-5) /hpf Ur Squamous Epith Cells (0-4) /hpf Urine Mucus (None) /hpf Coronavirus (PCR) (Not Detectd) 03/11/21 Range/Units 14:07 WBC (3.8-10.6) k/uL RBC (3.80-5.40) m/uL Hgb (11.4-16.0) gm/dL Hct (34.0-46.0) % MCV (80.0-100.0) fL MCH (25.0-35.0) pg MCHC (31.0-37.0) g/dL RDW (11.5-15.5) % Plt Count (150-450) k/uL MPV Neutrophils % % Lymphocytes % % Monocytes % % Eosinophils % % Basophils % % Neutrophils # (1.3-7.7) k/uL Lymphocytes # (1.0-4.8) k/uL Monocytes # (0-1.0) k/uL Eosinophils # (0-0.7) k/uL Basophils # (0-0.2) k/uL Hypochromasia Poikilocytosis Anisocytosis Microcytosis PT (9.0-12.0) sec INR (<1.2) APTT (22.0-30.0) sec Sodium (137-145) mmol/L Potassium (3.5-5.1) mmol/L Chloride (98-107) mmol/L Carbon Dioxide (22-30) mmol/L Anion Gap mmol/L BUN (7-17) mg/dL Creatinine (0.52-1.04) mg/dL Est GFR (CKD-EPI)AfAm (>60 ml/min/1.73 sqM) Est GFR (CKD-EPI)NonAf (>60 ml/min/1.73 sqM) Glucose (74-99) mg/dL Plasma Lactic Acid Jonah (0.7-2.0) mmol/L Calcium (8.4-10.2) mg/dL Total Bilirubin (0.2-1.3) mg/dL AST (14-36) U/L ALT (4-34) U/L Alkaline Phosphatase (38-126) U/L Troponin I (0.000-0.034) ng/mL Total Protein (6.3-8.2) g/dL Albumin (3.5-5.0) g/dL Urine Color Urine Appearance (Clear) Urine pH (5.0-8.0) Ur Specific [place] (1.001-1.035) Urine Protein (Negative) Urine Glucose (UA) (Negative) Urine Ketones (Negative) Urine Blood (Negative) Urine Nitrite (Negative) Urine Bilirubin (Negative) Urine Urobilinogen (<2.0) mg/dL Ur Leukocyte Esterase (Negative) Urine RBC (0-5) /hpf Urine WBC (0-5) /hpf Ur Squamous Epith Cells (0-4) /hpf Urine Mucus (None) /hpf Coronavirus (PCR) Not Detected (Not Detectd) Disposition Clinical Impression: Bilateral pneumonia Disposition: ADMITTED IP TO THIS [facility] Referrals: Ale Eli MD [Primary Care Provider] - 1-2 days Time of Disposition: 15:12
--- NOTE | 2021-03-11 14:07 | XR ---
EXAMINATION TYPE: XR chest 1V portable DATE OF EXAM: 03/11/2021 COMPARISON: Chest x-ray November 04, 2020. CT chest January 28, 2021 HISTORY: Altered mental status and fever. TECHNIQUE: Single AP portable frontal upright view of the chest is obtained. FINDINGS: Stable right internal jugular central venous catheter There is persistent right upper to m idlung irregular consolidation and worsening left mid lung and basilar consolidations. The cardiac s ilhouette size is mildly enlarged. The osseous structures are demineralized. Old fracture deformity left mid clavicle redemonstrated. IMPRESSION: Worsening left midlung and basilar consolidations. Fairly stable right upper to midlung consolidation. Correlate for worsening infectious process.
[2021-03-11 14:19] LABS: Anisocytosis Moderate; Basophils % (A) 0 %; Eosinophils # (A) 0.1 k/uL (0-0.7); Eosinophils % (A) 1 %; HCT 27.8 % (34.0-46.0); HGB 8.5 gm/dL (11.4-16.0); Hypochromasia Slight; Lymphocytes # (A) 0.8 k/uL (1.0-4.8); Lymphocytes % (A) 7 %; MCH 24.4 pg (25.0-35.0); MCHC 30.6 g/dL (31.0-37.0); MCV 79.6 fL (80.0-100.0); Mean Platelet Volume 6.6; Microcytosis Slight; Monocytes # (A) 0.7 k/uL (0-1.0); Monocytes % (A) 6 %; Neutrophils # (A) 9.7 k/uL (1.3-7.7); Neutrophils % (A) 84 %; Platelet Count 606 k/uL (150-450); Poikilocytosis Slight; RDW 20.6 % (11.5-15.5); WBC 11.6 k/uL (3.8-10.6)
[2021-03-11 14:22] LABS: Appearance,Urine Clear (Clear); Bilirubin,Urine Negative (Negative); Blood,Urine Small (Negative); Color,Urine Yellow; Glucose,Urine (UA) Negative (Negative); Ketones,Urine Negative (Negative); Leukocyte Esterase,Urine Negative (Negative); Mucus,Urine Rare /hpf; Nitrite,Urine Negative (Negative); PH, Urine 5.5 (5.0-8.0); Protein,Urine 1+ (Negative); RBC,Urine <1 /hpf (0-5); Specific Gravity,Urine 1.011 (1.001-1.035); Squamous Epithelial Cell,Urine <1 /hpf (0-4); Urobilinogen,Urine <2.0 mg/dL (<2.0); WBC,Urine <1 /hpf (0-5)
[2021-03-11 14:30] LABS: Partial Thromboplastin Time 27.6 sec (22.0-30.0); Prothrombin Time 10.5 sec (9.0-12.0)
[2021-03-11 14:32] LABS: Albumin 3.5 g/dL (3.5-5.0); Calcium 8.3 mg/dL (8.4-10.2); Potassium 3.9 mmol/L (3.5-5.1); Total Bilirubin 0.4 mg/dL (0.2-1.3); Total Protein 6.5 g/dL (6.3-8.2)
[2021-03-11] MEDS ORDERED: PIPERACILLIN-TAZOBACTAM 3.375 GM in SODIUM CHLORIDE 0.9% 100 ML IVPB STA (15:11)
[2021-03-11] MEDS ORDERED: PNEUMONIA PROTOCOL UTILIZED 1 EACH MISC PO PRN (15:13)
[2021-03-11] MEDS ORDERED: AZITHROMYCIN 500 MG in SODIUM CHLORIDE 0.9% 250 ML IVPB STA (15:13)
[2021-03-11] MEDS ORDERED: metroNIDAZOLE-NS PMX 500 MG in SALINE 1 100ML.BAG IVPB SCH (16:00)
--- NOTE | 2021-03-11 16:00 | CT ---
EXAMINATION TYPE: CT brain wo con DATE OF EXAM: 03/11/2021 HISTORY: Altered mental status. CT DLP: 1202.4 mGycm. Automated Exposure Control for Dose Reduction was Utilized. TECHNIQUE: CT scan of the head is performed without contrast. COMPARISON: CT brain July 18, 2020. FINDINGS: There is no acute intracranial hemorrhage or midline shift identified. There is mild to m oderate diffuse ventricular and sulcal prominence consistent with diffuse age-related cerebral atroph y. There is mild low-attenuation in the periventricular white matter consistent with chronic small v essel ischemic change. The globes are intact and the visualized sinuses are clear. IMPRESSION: No acute intracranial hemorrhage or midline shift. There is mild to moderate diffuse ce rebral atrophy greatest over the bilateral frontal lobes and mild chronic small vessel ischemic johnson e redemonstrated. No significant change from recent CT.
[2021-03-11] MEDS: ALBUTEROL NEBULIZED 2.5 MG/3 ML INHALATION SCH ×2 (16:42→19:42)
[2021-03-11] MEDS ORDERED: ceFAZolin 1,000 MG VIAL IVPB SCH (18:15)
[2021-03-11] MEDS: HYDROcodone/APAP 10-325MG 1 EACH TAB PO PRN (18:29)
[2021-03-11] MEDS ORDERED: MIRTAZAPINE 45 MG TABLET PO SCH (21:00)
[2021-03-11] MEDS: busPIRone HCl 10 MG TAB PO SCH (21:43)
[2021-03-11] MEDS: buPROPion XL 150 MG TAB.ER.24H PO SCH (21:43)
[2021-03-11] MEDS: PANTOPRAZOLE 40 MG TABLET PO SCH (21:43)
[2021-03-11] MEDS: hydrOXYzine pamoate 25 MG CAP PO SCH (21:43)
[2021-03-11] MEDS: MELATONIN 5 MG TABLET PO SCH (21:43)
[2021-03-12] MEDS: PIPERACILLIN-TAZOBACTAM 3.375 GM in SODIUM CHLORIDE 0.9% 100 ML IVPB SCH ×3 (00:44→17:35)
[2021-03-12] MEDS: HYDROcodone/APAP 10-325MG 1 EACH TAB PO PRN ×2 (05:19→17:35)
[2021-03-12] MEDS: ALBUTEROL NEBULIZED 2.5 MG/3 ML INHALATION SCH ×4 (07:57→21:32)
--- NOTE | 2021-03-12 08:16 | XR ---
EXAMINATION TYPE: XR chest 1V DATE OF EXAM: 03/12/2021 COMPARISON: Chest x-ray 03/11/2021 HISTORY: Pneumonia TECHNIQUE: Single frontal view of the chest is obtained. FINDINGS: Bilateral airspace disease is again noted. Interstitium is increased. Right jugular centra l venous catheter shows the distal tip in the right atrium. No evident pneumothorax or pleural effusi on. Bones are unchanged. Cardiac mediastinal silhouette is stable. IMPRESSION: Correlate for pneumonia, difficult to exclude underlying mass
[2021-03-12] MEDS: THIAMINE 100 MG TAB PO SCH (08:31)
[2021-03-12] MEDS: PANTOPRAZOLE 40 MG TABLET PO SCH ×2 (08:31→17:35)
[2021-03-12] MEDS: FUROSEMIDE 20 MG TAB PO SCH (08:31)
[2021-03-12] MEDS: LEVOTHYROXINE 88 MCG TAB PO SCH (08:31)
[2021-03-12] MEDS: FOLIC ACID 1 MG TAB PO SCH (08:31)
[2021-03-12] MEDS: FERROUS SULFATE 325 MG TAB PO SCH (08:31)
[2021-03-12] MEDS: LORATADINE 10 MG TAB PO SCH (08:31)
[2021-03-12] MEDS ORDERED: TPN IV SCH (09:00)
[2021-03-12 09:16] LABS: Basophils # (A) 0.09 X 10*3/uL (0.00-0.10); Basophils % (A) 0.6 %; Eosinophils % (A) 1.2 %; HCT 25.3 % (37.2-46.3); HGB 7.6 g/dL (12.0-15.0); Lymphocytes # (A) 1.09 X 10*3/uL (0.90-5.00); Lymphocytes % (A) 6.8 %; MCH 24.5 pg (27.0-32.0); MCV 81.6 fL (80.0-97.0); Mean Platelet Volume 8.7 fL (9.5-12.2); Monocytes # (A) 1.27 X 10*3/uL (0.20-1.00); Monocytes % (A) 7.9 %; Neutrophils # (A) 13.29 X 10*3/uL (1.80-7.70); Neutrophils % (A) 82.8 %; Platelet Count 479 X 10*3/uL (140-440); RDW 20.9 % (11.5-14.5); WBC 16.05 X 10*3/uL (4.50-10.00)
[2021-03-12 09:50] LABS: African American GFR (CKD) 34.1 (60.0-200.0); Albumin 3.5 g/dL (3.8-4.9); Albumin/Globulin Ratio 1.35 (1.60-3.17); Anion Gap 17.3 mmol/L (4.00-12.00); BUN/Creat Ratio 13.24 Ratio (12.00-20.00); Blood Urea Nitrogen 22.5 mg/dL (9.0-27.0); Calcium 8.4 mg/dL (8.7-10.3); Carbon Dioxide 21.7 mmol/L (21.6-31.8); Globulin 2.6 g/dL (1.6-3.3); Non-African American GFR(CKD) 29.4 (60.0-200.0); Potassium 3.8 mmol/L (3.5-5.5); Total Bilirubin 0.2 mg/dL (0.30-1.20); Total Protein 6.1 g/dL (6.2-8.2)
[2021-03-12] MEDS: hydrOXYzine pamoate 25 MG CAP PO SCH ×3 (10:09→21:41)
[2021-03-12] MEDS: busPIRone HCl 10 MG TAB PO SCH ×2 (10:10→20:33)
[2021-03-12] MEDS: buPROPion XL 300 MG TAB.ER.24H PO SCH (10:11)
[2021-03-12] MEDS: BUTALB/APAP/CAFF 50-325-40MG TAB PO PRN (11:32)
[2021-03-12] MEDS: POTASSIUM CHLORIDE ER 10 MEQ TAB.ER.PRT PO SCH (12:44)
[2021-03-12] MEDS: AZITHROMYCIN 500 MG in SODIUM CHLORIDE 0.9% 250 ML IVPB SCH (13:36)
[2021-03-12 13:41] VITALS: BMI 16.9
[2021-03-12] MEDS ORDERED: MVI, ADULT NO.4 WITH VIT K 10 ML, TRACE (CONC-1ML/DOSE) 1 ML in AMINO ACID 5%-D20W+LYTE... IV SCH ×3 (16:00)
[2021-03-12] MEDS: FAT EMULSION 20% 500 ML in EMPTY BAG 1 BAG IV SCH (17:34)
[2021-03-12 18:12] LABS: Magnesium 1.9 mg/dL (1.6-2.3)
[2021-03-12 18:13] LABS: Phosphorus 3.8 mg/dL (2.5-4.5)
--- NOTE | 2021-03-12 18:37 | P.HPIM ---
History of Present Illness H&P Date: 03/11/21 Louise Sutton, is a 75 year old female who presented to [facility] emergency room with a chief complaint of mental status changes and hallucinations, patient has a known history of chronic pain syndrome maintained on narcotics she stated that she was maintained on fentanyl patch and [place], she stated that she recently was switched to oral morphine however she started having confusion and hallucination when she was switched to oral morphine, she spoke to her primary care physician Dr. Eli and she was switched back to fentanyl and [place]. She was evaluated by her visiting nurse and was found to be confused and not able to take care of her medications and TPN and was advised to go to the hospital. She was evaluated in the emergency room vital examination on presentation rev ealed a temperature of 98.5 pulse 112 respiration 16 blood pressure 120/89 pulse ox 93% on room air Laboratory data revealed a white blood count of 11.6 hemoglobin 8.5 platelet count 606 sodium 129 potassium 3.9 chloride 91 BUN 27 creatinine 1.68 COVID-19 testing was negative Testing in the emergency room revealed chest x-ray done in the emergency room revealed worsening left mid lung and basilar consolidation suggestive of pneumonia, computed tomography scan of the brain revealed no acute intracranial changes Patient was admitted to medical floor for further evaluation and treatment Past Medical History Past Medical History: Asthma, COPD, GERD/Reflux, Memory Impairment, Respiratory Disorder, Thyroid Disorder Additional Past Medical History / Comment(s): 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 History of Any Multi-Drug Resistant Organisms: None Reported Past Surgical History: Back Surgery, Bowel Resection, Hysterectomy, Joint Replacement Additional Past Surgical History / Comment(s): LOWER BACK SURGERY lamenectomy/discetomy then had a revison of that sx. 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, nasal sx d/t broken nose, colonoscopy/egd, PAIN CLINIC PROCEDURES, PORT A CATH INSERTION, LT ADEOLA, Past Anesthesia/Blood Transfusion Reactions: No Reported Reaction Additional Past Anesthesia/Blood Transfusion Reaction / Comment(s): PT RECIEVED BLOOD TRANSFUSIONS AFTER STOMACH SURGERY Past Psychological History: Anxiety, Depression, Panic Disorder Smoking Status: Never smoker Past Alcohol Use History: None Reported Past Drug Use History: None Reported - Past Family History Father Family Medical History: Cancer, Coronary Artery Disease (CAD) Additional Family Medical History / Comment(s): FATHER HAD BLADDER AND KIDNEY CANCER. FATHER HAD TB WHEN HE WAS A CHILD .FATHER AT AGE 87. Mother Family Medical History: Cancer Additional Family Medical History / Comment(s): MOTHER AT AGE 58 OF OVARIAN CANCER. Medications and Allergies Home Medications Medication Instructions Recorded Confirmed Type Ferrous Sulfate [Iron (65 MG 325 mg PO DAILY 11/06/15 03/11/21 History Elemental)] Levothyroxine Sodium [Synthroid] 88 mcg PO DAILY 06/07/19 03/11/21 History calcitrioL [Calcitriol] 1 mcg PO MOWEFR 06/07/19 03/11/21 History busPIRone HCL [Buspar] 30 mg PO BID 04/14/20 03/11/21 History Potassium Chloride ER [K-Dur 10] 30 meq PO DAILY@1200 04/18/20 03/11/21 History hydrOXYzine pamoate [hydrOXYzine 25 mg PO TID 04/18/20 03/11/21 History PAMOATE] Pantoprazole Sodium [Protonix] 40 mg PO BID 30 Days #60 tablet. 04/27/20 03/11/21 Rx Butalb/APAP/Caff 50-325-40Mg 1 tab PO BID PRN 06/30/20 03/11/21 History [Fioricet 50-325-40] buPROPion XL [Wellbutrin XL] 150 mg PO HS 11/04/20 03/11/21 History Furosemide [Lasix] 20 mg PO DAILY #6 tab 12/13/20 03/11/21 Rx HYDROcodone/APAP 10-325MG [[place] 1 tab PO BID PRN 12/13/20 03/11/21 History 10-325] fentaNYL 75MCG/HR PATCH [Duragesic 1 patch TRANSDERM Q72H 3 Days #3 12/13/20 03/11/21 Rx 75MCG/HR] patch Tpn 1 each IV DAILY 02/20/21 03/11/21 History buPROPion XL [Wellbutrin XL] 300 mg PO QAM 02/20/21 03/11/21 History Folic Acid 1 mg PO DAILY 03/11/21 03/11/21 History Loratadine [Claritin] 10 mg PO DAILY 03/11/21 03/11/21 History Thiamine HCl [Vitamin B-1] 100 mg PO DAILY 03/11/21 03/11/21 History ceFAZolin [Kefzol] 1,000 mg IVPB Q12H 03/11/21 03/11/21 History Allergies Allergy/AdvReac Type Severity Reaction Status Date / Time denosumab [From Prolia] Allergy SEVERE Verified 03/11/21 17:14 CALCIUM LOSS DUST Allergy Itching Uncoded 03/11/21 17:14 MOLDS Allergy Itching Uncoded 02/20/21 14:59 Physical Exam Vitals: Vital Signs Temp Pulse Resp BP Pulse Ox 03/11/21 18:03 112 H 16 120/61 97 03/11/21 16:50 110 H 03/11/21 16:44 109 H 03/11/21 13:38 98.5 F 112 H 16 120/89 93 L Intake and Output 03/11/21 03/11/21 03/11/21 06:59 14:59 22:59 Other: Weight 42.184 kg In general patient is alert and oriented x 3 in no distress HEENT head normocephalic and atraumatic Neck is supple no JVD no goiter no lymphadenopathy no carotid bruit Chest examination is clear to auscultation no crackles no wheezing Cardiac exam reveals regular heart sounds S1 and S2 no gallops no murmurs Abdomen is soft nontender no organomegaly with normal bowel sounds Extremity exam reveals no edema no cyanosis or clubbing Neurological examination reveals no gross focal deficits Results CBC & Chem 7: 03/12/21 06:20 03/12/21 06:20 Labs: Abnormal Lab Results - Last 24 Hours (Table) 03/11/21 03/11/21 03/11/21 Range/Units 13:42 14:07 14:07 WBC 11.6 H (3.8-10.6) k/uL RBC 3.50 L (3.80-5.40) m/uL Hgb 8.5 L (11.4-16.0) gm/dL Hct 27.8 L (34.0-46.0) % MCV 79.6 L (80.0-100.0) fL MCH 24.4 L (25.0-35.0) pg MCHC 30.6 L (31.0-37.0) g/dL RDW 20.6 H (11.5-15.5) % Plt Count 606 H (150-450) k/uL Neutrophils # 9.7 H (1.3-7.7) k/uL Lymphocytes # 0.8 L (1.0-4.8) k/uL Sodium 129 L (137-145) mmol/L Chloride 91 L (98-107) mmol/L BUN 27 H (7-17) mg/dL Creatinine 1.68 H (0.52-1.04) mg/dL Glucose 109 H (74-99) mg/dL Calcium 8.3 L (8.4-10.2) mg/dL AST 48 H (14-36) U/L Alkaline Phosphatase 299 H (38-126) U/L Urine Protein 1+ H (Negative) Urine Blood Small H (Negative) Urine Mucus Rare H (None) /hpf Assessment and Plan Plan: Mental status change with confusion and hallucinations, likely related to the ch anges in narcotics will monitor closely currently patient is alert and responsive and answering questions appropriately Hyponatremia Evidence of pneumonia, on chest x-ray patient has recurrent episodes of pneumonia she was started on IV antibiotics and was admitted to medical floor pulmonary consultation was requested Chronic pain syndrome maintained on narcotics for pain management, narcotics were recently changed from fentanyl to morphine and again back to fentanyl, patient states that this change is what's causing her hallucinations. History of peptic ulcer disease with history of gastric resection, patient is maintained on TPN At this time patient is admitted to medical floor she was started on IV antibiotics she was restarted on her home medications including fentanyl and [place] Will follow closely will assess need for any further workup
[2021-03-12] MEDS: buPROPion XL 150 MG TAB.ER.24H PO SCH (20:33)
[2021-03-12] MEDS: MELATONIN 5 MG TABLET PO SCH (20:33)
[2021-03-12] MEDS: INSULIN ASPART (NovoLOG) 100 UNIT/ML VIAL SQ SCH (21:00)
[2021-03-12 21:54] LABS: Glucose,Whole Blood 114 mg/dL (75-99)
[2021-03-12] MEDS: MIRTAZAPINE 45 MG TABLET PO SCH (22:05)
[2021-03-13 01:07] LABS: Triglycerides 95.4 mg/dL (0.00-149.00)
[2021-03-13] MEDS: HYDROcodone/APAP 10-325MG 1 EACH TAB PO PRN ×2 (05:43→17:23)
[2021-03-13] MEDS: LEVOTHYROXINE 88 MCG TAB PO SCH (05:43)
[2021-03-13] MEDS: ALBUTEROL NEBULIZED 2.5 MG/3 ML INHALATION SCH ×4 (07:18→21:15)
[2021-03-13 07:19] LABS: Glucose,Whole Blood 162 mg/dL (75-99)
[2021-03-13] MEDS: PANTOPRAZOLE 40 MG TABLET PO SCH ×2 (08:22→17:24)
[2021-03-13] MEDS: busPIRone HCl 10 MG TAB PO SCH ×2 (08:22→19:37)
[2021-03-13] MEDS: FERROUS SULFATE 325 MG TAB PO SCH (08:22)
[2021-03-13] MEDS: hydrOXYzine pamoate 25 MG CAP PO SCH ×3 (08:22→19:38)
[2021-03-13] MEDS: THIAMINE 100 MG TAB PO SCH (08:24)
[2021-03-13] MEDS: BUTALB/APAP/CAFF 50-325-40MG TAB PO PRN ×2 (08:24→19:39)
[2021-03-13] MEDS: FOLIC ACID 1 MG TAB PO SCH (08:24)
[2021-03-13] MEDS: buPROPion XL 300 MG TAB.ER.24H PO SCH (08:24)
[2021-03-13] MEDS: LORATADINE 10 MG TAB PO SCH (08:24)
[2021-03-13] MEDS: FUROSEMIDE 20 MG TAB PO SCH (08:24)
[2021-03-13] MEDS: INSULIN ASPART (NovoLOG) 100 UNIT/ML VIAL SQ SCH ×4 (08:25→20:44)
[2021-03-13] MEDS: PIPERACILLIN-TAZOBACTAM 3.375 GM in SODIUM CHLORIDE 0.9% 100 ML IVPB SCH ×4 (08:33→17:24)
[2021-03-13 08:52] LABS: Magnesium 1.8 mg/dL (1.6-2.3); Phosphorus 3.1 mg/dL (2.5-4.5)
--- NOTE | 2021-03-13 09:31 | P.PN ---
Subjective Progress Note Date: 03/13/21 Louise Sutton, is a 75 year old female who presented to [facility] emergency room with a chief complaint of mental status changes and hallucinations, patient has a known history of chronic pain syndrome maintained on narcotics she stated that she was maintained on fentanyl patch and Aubrey, she stated that she recently was switched to oral morphine however she started having confusion and hallucination when she was switched to oral morphine, she spoke to her primary care physician Dr. Eli and she was switched back to fentanyl and Aubrey. She was evaluated by her visiting nurse and was found to be confused and not able to take care of her medications and TPN and was advised to go to the hospital. She was evaluated in the emergency room vital examination on presentation revealed a temperature of 98.5 pulse 112 respiration 16 blood pressure 120/89 pulse ox 93% on room air Laboratory data revealed a white blood count of 11.6 hemoglobin 8.5 platelet count 606 sodium 129 potassium 3.9 chloride 91 BUN 27 creatinine 1.68 COVID-19 testing was negative Testing in the emergency room revealed chest x-ray done in the emergency room revealed worsening left mid lung and basilar consolidation suggestive of pneumonia, computed tomography scan of the brain revealed no acute intracranial changes Patient was admitted to medical floor for further evaluation and treatment On 03/13/2021 patient is alert and oriented 3. Patient is answering questions appropriately. She remains on IV antibiotics of azithromycin and Zosyn. Pulmonary services have been consulted. Patient reports that she does feel phlegm in her chest. Patient denies chest pain. Patient denies nausea vomiting or diarrhea. Patient denies any urinary burning or frequency Objective - Vital Signs Vital signs: Vital Signs Temp 98.6 F 03/13/21 05:43 Pulse 104 H 03/13/21 05:43 Resp 16 03/13/21 05:43 BP 149/65 03/13/21 05:43 Pulse Ox 95 03/13/21 05:43 Intake & Output 03/12/21 03/13/21 03/13/21 18:59 06:59 18:59 Intake Total 591 Balance 591 Weight 42.184 kg Intake: Intake, IV Titration 371 Amount Amino Acid 5%-D20w+Lytes* 60 E* 1,000 ml @ 60 mls/hr IV .BY DURATION [facility] Rx#: [id number] Fat Emulsion 20% 500 ml 21 In Empty Bag 1 bag @ 21 mls/hr IV Tu@1600 [facility] Rx# :[id number] Mvi, Adult No.4 with Vit 30 K 10 ml Trace (Conc-1Ml/ Dose) 1 ml In Amino Acid 5%-D20w+Lytes*E* 1,000 ml @ 30 mls/hr IV .Q24H [facility] Rx#:[id number] Mvi, Adult No.4 with Vit 60 K 10 ml Trace (Conc-1Ml/ Dose) 1 ml In Amino Acid 5%-D20w+Lytes*E* 1,000 ml @ 60 mls/hr IV .BY DURATION [facility] Rx#: [id number] Piperacillin-Tazobactam 3 200 .375 gm In Sodium Chloride 0.9% 100 ml @ 25 mls/hr IVPB Q8HR [facility] Rx# :[id number] Oral 220 Other: Voiding Method Toilet Toilet # Voids 2 - Exam In general patient is alert and oriented x 3 in no distress HEENT head normocephalic and atraumatic Neck is supple no JVD no goiter no lymphadenopathy no carotid bruit Chest examination is clear to auscultation no crackles no wheezing Cardiac exam reveals regular heart sounds S1 and S2 no gallops no murmurs Abdomen is soft nontender no organomegaly with normal bowel sounds Extremity exam reveals no edema no cyanosis or clubbing Neurological examination reveals no gross focal deficits - Labs CBC & Chem 7: 03/12/21 06:20 03/12/21 06:20 Labs: Abnormal Lab Results - Last 24 Hours (Table) 03/12/21 03/12/21 03/13/21 Range/Units 06:20 21:52 07:17 Sodium 134 L (135-145) mmol/L Chloride 95 L (96-109) mmol/L Anion Gap 17.30 H (4.00-12.00) mmol/L Creatinine 1.7 H (0.6-1.5) mg/dL Est GFR (CKD-EPI)AfAm 34.1 L (60.0-200.0) Est GFR (CKD-EPI)NonAf 29.4 L (60.0-200.0) POC Glucose (mg/dL) 114 H 162 H (75-99) mg/dL Calcium 8.4 L (8.7-10.3) mg/dL Total Bilirubin 0.20 L (0.30-1.20) mg/dL AST 56 H (13-35) U/L ALT 7 L (8-44) U/L Alkaline Phosphatase 272 H (41-126) U/L Total Protein 6.1 L (6.2-8.2) g/dL Albumin 3.5 L (3.8-4.9) g/dL Albumin/Globulin Ratio 1.35 L (1.60-3.17) g/dL Microbiology - Last 24 Hours (Table) 03/11/21 14:25 Blood Culture - Preliminary Blood No Growth after 24 hours 03/11/21 14:41 Blood Culture - Preliminary Blood No Growth after 24 hours Assessment and Plan Plan: Mental status change with confusion and hallucinations, likely related to the changes in narcotics will monitor closely currently patient is alert and responsive and answering questions appropriately Hyponatremia improved Evidence of pneumonia, on chest x-ray patient has recurrent episodes of pneumonia she was started on IV antibiotics and was admitted to medical floor pulmonary consultation was requested Chronic pain syndrome maintained on narcotics for pain management, narcotics were recently changed from fentanyl to morphine and again back to fentanyl, patient states that this change is what's causing her hallucinations. History of peptic ulcer disease with history of gastric resection, patient is maintained on TPN At this time patient is admitted to medical floor she was started on IV antibiotics she was restarted on her home medications including fentanyl and Aubrey Repeat labs ordered Will follow closely will assess need for any further workup
[2021-03-13 11:26] LABS: Basophils # (A) 0.08 X 10*3/uL (0.00-0.10); Basophils % (A) 0.6 %; Eosinophils # (A) 0.49 X 10*3/uL (0.04-0.35); Eosinophils % (A) 3.5 %; HCT 27.9 % (37.2-46.3); Lymphocytes # (A) 1.07 X 10*3/uL (0.90-5.00); Lymphocytes % (A) 7.6 %; MCH 24.4 pg (27.0-32.0); MCHC 28.7 g/dL (32.0-37.0); MCV 85.1 fL (80.0-97.0); Mean Platelet Volume 8.9 fL (9.5-12.2); Monocytes # (A) 1.17 X 10*3/uL (0.20-1.00); Monocytes % (A) 8.3 %; Neutrophils # (A) 11.27 X 10*3/uL (1.80-7.70); Neutrophils % (A) 79.4 %; Platelet Count 542 X 10*3/uL (140-440); RBC 3.28 X 10*6/uL (4.10-5.20); RDW 21.6 % (11.5-14.5); WBC 14.17 X 10*3/uL (4.50-10.00)
[2021-03-13 11:32] LABS: ALT 7 U/L (8-44); AST 44 U/L (13-35); African American GFR (CKD) 39.6 (60.0-200.0); Albumin 3.4 g/dL (3.8-4.9); Albumin/Globulin Ratio 1.31 (1.60-3.17); Alkaline Phosphatase 249 U/L (41-126); BUN/Creat Ratio 11.73 Ratio (12.00-20.00); Blood Urea Nitrogen 17.6 mg/dL (9.0-27.0); Calcium 8.3 mg/dL (8.7-10.3); Carbon Dioxide 25.7 mmol/L (20.0-27.5); Chloride 98 mmol/L (96-109); Globulin 2.6 g/dL (1.6-3.3); Glucose 151 mg/dL (70-110); Non-African American GFR(CKD) 34.2 (60.0-200.0); Potassium 3.6 mmol/L (3.5-5.5); Sodium 136 mmol/L (135-145); Total Bilirubin <0.20 mg/dL (0.30-1.20)
[2021-03-13 12:17] LABS: Glucose,Whole Blood 128 mg/dL (75-99)
[2021-03-13] MEDS: POTASSIUM CHLORIDE ER 10 MEQ TAB.ER.PRT PO SCH (12:59)
[2021-03-13] MEDS: AZITHROMYCIN 500 MG in SODIUM CHLORIDE 0.9% 250 ML IVPB SCH (13:00)
[2021-03-13] MEDS: POTASSIUM CHLORIDE 10 MEQ in WATER FOR INJECTION 1 100ML.BAG IVPB SCH ×2 (14:43→16:30)
[2021-03-13] MEDS: MAGNESIUM SULFATE-D5W PMX 1 GM in DEXTROSE/WATER 1 100ML.BAG IVPB SCH ×2 (14:51→16:29)
--- NOTE | 2021-03-13 16:10 | P.CNPUL ---
History of Present Illness Consult date: 03/13/21 Requesting physician: Palmer Desir Reason for consult: dyspnea, abnormal CXR/CT Chief complaint: Shortness of breath, cough, congestion History of present illness: This is a very pleasant 75-year-old female patient with a known history of gastroesophageal reflux disease with previous gastrectomy secondary to gastric ulcers and difficulty in swallowing. She's had multiple aspiration pneumonias. She now receives TPN via a right subclavian port and is mainly nothing by mouth. She does have a history of asthmatic bronchitis and is maintained on Symbicort and Ventolin. She's had extensive right upper lobe pneumonia is due to aspiration. She's been treated in the outpatient setting on meropenem as well as cefazolin. Her most recent pneumonia was secondary to methicillin sensitive staph aureus. He presented here to the emergency room on 03/11/2021 with complaints of increasing shortness of breath, cough and congestion. X-ray revealed worsening left midlung and basilar consolidations. Fairly stable right upper to mid lung consolidation. She is seen today in consultation on the regular medical floor. She is currently sitting up in bed. Awake and alert in no acute distress. Maintaining O2 saturations in the upper 90s on room air. She's afebrile. Hemodynamically stable. Cultures reveal no growth to date. White count 14.1. Hemoglobin 8.0. Sodium 136. Potassium 3.6. Creatinine 1.5. AST 44. ALT 7. Albumin 3.4. She's been initiated on azithromycin and Zosyn. Review of Systems REVIEW OF SYSTEMS: CONSTITUTIONAL: Denies any recent significant weight loss or weight gain. EYES: Denies change in vision. EARS, NOSE, MOUTH, THROAT: Denies headaches, denies sore throat. CARDIOVASCULAR: Denies chest pain, palpitations or syncopal episodes. RESPIRATORY: Positive for shortness of breath, cough, congestion or hemoptysis. GASTROINTESTINAL: Denies change in appetite, denies abdominal pain GENITOURINARY: Denies hematuria, denies infections. MUSKULOSKELETAL: Denies pain, denies swelling. INTEGUMENTARY: Denies rash, denies eczema. NEUROLOGICAL: Denies recent memory loss, no recent seizure activity. PSYCHIATRIC: Denies anxiety, denies depression. HEMATOLOGIC/LYMPHATIC: Denies anemia, denies enlarged lymph nodes. 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 History of Any Multi-Drug Resistant Organisms: None Reported Past Surgical History: Back Surgery, Bowel Resection, Hysterectomy, Joint Replacement Additional Past Surgical History / Comment(s): LOWER BACK SURGERY lamenectomy/discetomy then had a revison of that sx. 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, nasal sx d/t broken nose, colonoscopy/egd, PAIN CLINIC PROCEDURES, PORT A CATH INSERTION, LT ADEOLA, Past Anesthesia/Blood Transfusion Reactions: No Reported Reaction Additional Past Anesthesia/Blood Transfusion Reaction / Comment(s): PT RECIEVED BLOOD TRANSFUSIONS AFTER STOMACH SURGERY Past Psychological History: Anxiety, Depression, Panic Disorder Smoking Status: Never smoker Past Alcohol Use History: None Reported Past Drug Use History: None Reported - Past Family History Father Family Medical History: Cancer, Coronary Artery Disease (CAD) Additional Family Medical History / Comment(s): FATHER HAD BLADDER AND KIDNEY CANCER. FATHER HAD TB WHEN HE WAS A CHILD .FATHER AT AGE 87. Mother Family Medical History: Cancer Additional Family Medical History / Comment(s): MOTHER AT AGE 58 OF OVARIAN CANCER. Medications and Allergies Home Medications Medication Instructions Recorded Confirmed Type Ferrous Sulfate [Iron (65 MG 325 mg PO DAILY 11/06/15 03/11/21 History Elemental)] Levothyroxine Sodium [Synthroid] 88 mcg PO DAILY 06/07/19 03/11/21 History calcitrioL [Calcitriol] 1 mcg PO MOWEFR 06/07/19 03/11/21 History busPIRone HCL [Buspar] 30 mg PO BID 04/14/20 03/11/21 History Potassium Chloride ER [K-Dur 10] 30 meq PO DAILY@1200 04/18/20 03/11/21 History hydrOXYzine pamoate [hydrOXYzine 25 mg PO TID 04/18/20 03/11/21 History PAMOATE] Pantoprazole Sodium [Protonix] 40 mg PO BID 30 Days #60 tablet. 04/27/20 Rx Butalb/APAP/Caff 50-325-40Mg 1 tab PO BID PRN 06/30/20 03/11/21 History [Fioricet 50-325-40] buPROPion XL [Wellbutrin XL] 150 mg PO HS 11/04/20 03/11/21 History Furosemide [Lasix] 20 mg PO DAILY #6 tab 12/13/20 03/11/21 Rx HYDROcodone/APAP 10-325MG [[place] 1 tab PO BID PRN 12/13/20 03/11/21 History 10-325] fentaNYL 75MCG/HR PATCH [Duragesic 1 patch TRANSDERM Q72H 3 Days #3 12/13/20 03/11/21 Rx 75MCG/HR] patch Tpn 1 each IV DAILY 02/20/21 03/11/21 History buPROPion XL [Wellbutrin XL] 300 mg PO QAM 02/20/21 03/11/21 History Folic Acid 1 mg PO DAILY 03/11/21 03/11/21 History Loratadine [Claritin] 10 mg PO DAILY 03/11/21 03/11/21 History Thiamine HCl [Vitamin B-1] 100 mg PO DAILY 03/11/21 03/11/21 History ceFAZolin [Kefzol] 1,000 mg IVPB Q12H 03/11/21 03/11/21 History Allergies Allergy/AdvReac Type Severity Reaction Status Date / Time denosumab [From Prolia] Allergy SEVERE Verified 03/11/21 17:14 CALCIUM LOSS DUST Allergy Itching Uncoded 03/11/21 17:14 MOLDS Allergy Itching Uncoded 02/20/21 14:59 Physical Exam Vitals: Vital Signs Temp Pulse Pulse Pulse Resp BP Pulse Ox 03/13/21 15:41 90 03/13/21 15:32 86 03/13/21 15:31 98 03/13/21 14:00 98.3 F 92 17 115/77 99 03/13/21 11:24 88 03/13/21 11:13 94 03/13/21 10:14 98.7 F 83 17 117/65 96 03/13/21 05:43 98.6 F 104 H 16 149/65 95 03/13/21 01:27 97.6 F 105 H 16 125/65 94 L 03/12/21 22:40 98.2 F 104 H 16 142/69 93 L 03/12/21 21:47 96 03/12/21 21:33 96 03/12/21 20:00 91 18 03/12/21 18:10 98.1 F 54 L 16 114/64 94 L 03/12/21 16:43 99 03/12/21 16:32 101 H Intake and Output 03/13/21 03/13/21 03/13/21 06:59 14:59 22:59 Intake Total 591 Balance 591 Intake: Intake, IV Titration 371 Amount Amino Acid 5%-D20w+Lytes* 60 E* 1,000 ml @ 60 mls/hr IV .BY [facility] Rx#: [id number] Fat Emulsion 20% 500 ml 21 In Empty Bag 1 bag @ 21 mls/hr IV Tu@1600 [facility] Rx# :[id number] Mvi, Adult No.4 with Vit 30 K 10 ml Trace (Conc-1Ml/ Dose) 1 ml In Amino Acid 5%-D20w+Lytes*E* 1,000 ml @ 30 mls/hr IV .Q24H [facility] Rx#:[id number] Mvi, Adult No.4 with Vit 60 K 10 ml Trace (Conc-1Ml/ Dose) 1 ml In Amino Acid 5%-D20w+Lytes*E* 1,000 ml @ 60 mls/hr IV .BY DUR[facility] Rx#: [id number] Piperacillin-Tazobactam 3 200 .375 gm In Sodium Chloride 0.9% 100 ml @ 25 mls/hr IVPB Q8HR [facility] Rx# :[id number] Oral 220 Other: Voiding Method Toilet # Voids 2 3 GENERAL EXAM: Alert, very pleasant 75-year-old female patient, frail, on room air, comfortable in no apparent distress. HEAD: Normocephalic. EYES: Normal reaction of pupils, equal size. NOSE: Clear with pink turbinates. THROAT: No erythema or exudates. NECK: No masses, no JVD. CHEST: No chest wall deformity. Right subclavian Mediport in place. LUNGS: Equal air entry with bilateral scattered rhonchi more so on the left. CVS: S1 and S2 normal with no audible murmur, regular rhythm. ABDOMEN: No hepatosplenomegaly, normal bowel sounds, no guarding or rigidity. SPINE: No scoliosis or deformity SKIN: No rashes CENTRAL NERVOUS SYSTEM: No focal deficits, tone is normal in all 4 extremities. EXTREMITIES: There is no peripheral edema. No clubbing, no cyanosis. Peripheral pulses are intact. Results - Laboratory Findings CBC and BMP: 03/13/21 07:52 03/13/21 07:52 PT/INR, D-dimer PT 10.5 sec (9.0-12.0) 03/11/21 14:07 INR 1.0 (<1.2) 03/11/21 14:07 Abnormal lab findings: Abnormal Labs 03/11/21 03/11/21 03/11/21 13:42 14:07 14:07 WBC 11.6 H RBC 3.50 L Hgb 8.5 L Hct 27.8 L MCV 79.6 L MCH 24.4 L MCHC 30.6 L RDW 20.6 H Plt Count 606 H MPV Immature Gran # Neutrophils # 9.7 H Lymphocytes # 0.8 L Monocytes # Eosinophils # Sodium 129 L Chloride 91 L Anion Gap BUN 27 H Creatinine 1.68 H Est GFR (CKD-EPI)AfAm Est GFR (CKD-EPI)NonAf BUN/Creatinine Ratio Glucose 109 H POC Glucose (mg/dL) Calcium 8.3 L Total Bilirubin AST 48 H ALT Alkaline Phosphatase 299 H Total Protein Albumin Albumin/Globulin Ratio Urine Protein 1+ H Urine Blood Small H Urine Mucus Rare H 03/12/21 03/12/21 03/12/21 06:20 06:20 21:52 WBC 16.05 H RBC 3.10 L Hgb 7.6 L Hct 25.3 L MCV MCH 24.5 L MCHC 30.0 L RDW 20.9 H Plt Count 479 H MPV 8.7 L Immature Gran # 0.11 H Neutrophils # 13.29 H Lymphocytes # Monocytes # 1.27 H Eosinophils # Sodium 134 L Chloride 95 L Anion Gap 17.30 H BUN Creatinine 1.7 H Est GFR (CKD-EPI)AfAm 34.1 L Est GFR (CKD-EPI)NonAf 29.4 L BUN/Creatinine Ratio Glucose POC Glucose (mg/dL) 114 H Calcium 8.4 L Total Bilirubin 0.20 L AST 56 H ALT 7 L Alkaline Phosphatase 272 H Total Protein 6.1 L Albumin 3.5 L Albumin/Globulin Ratio 1.35 L Urine Protein Urine Blood Urine Mucus 03/13/21 03/13/21 03/13/21 07:17 07:52 07:52 WBC 14.17 H RBC 3.28 L Hgb 8.0 L Hct 27.9 L MCV MCH 24.4 L MCHC 28.7 L RDW 21.6 H Plt Count 542 H MPV 8.9 L Immature Gran # 0.09 H Neutrophils # 11.27 H Lymphocytes # Monocytes # 1.17 H Eosinophils # 0.49 H Sodium Chloride Anion Gap BUN Creatinine Est GFR (CKD-EPI)AfAm 39.6 L Est GFR (CKD-EPI)NonAf 34.2 L BUN/Creatinine Ratio 11.73 L Glucose 151 H POC Glucose (mg/dL) 162 H Calcium 8.3 L Total Bilirubin <0.20 L AST 44 H ALT 7 L Alkaline Phosphatase 249 H Total Protein 6.0 L Albumin 3.4 L Albumin/Globulin Ratio 1.31 L Urine Protein Urine Blood Urine Mucus 03/13/21 12:15 WBC RBC Hgb Hct MCV MCH MCHC RDW Plt Count MPV Immature Gran # Neutrophils # Lymphocytes # Monocytes # Eosinophils # Sodium Chloride Anion Gap BUN Creatinine Est GFR (CKD-EPI)AfAm Est GFR (CKD-EPI)NonAf BUN/Creatinine Ratio Glucose POC Glucose (mg/dL) 128 H Calcium Total Bilirubin AST ALT Alkaline Phosphatase Total Protein Albumin Albumin/Globulin Ratio Urine Protein Urine Blood Urine Mucus - Diagnostic Findings Chest x-ray: image reviewed Assessment and Plan Assessment: 1 Acute community-acquired versus aspiration pneumonia in a patient with a known history of MSSA pneumonia on bronchial wash from 02/22/2021 2 Recurrent pneumonias previously on meropenem and cefazolin in the outpatient setting. 3 History of aspiration pneumonias due to history of previous gastrectomy 4 History of gastrectomy secondary to gastric ulcers, being nourished via TPN via right subclavian Mediport. 5 Gastroesophageal reflux disease 5 Chronic pain syndrome 6 Chronic renal failure stage IV 7 Anxiety/depression/panic disorder Plan: The patient was seen and evaluated by Dr. Sanchez Chest x-ray, labs reviewed Continue Zosyn and azithromycin for now Obtain a sputum sample Continue TPN for nutritional support We will continue to follow and make further recommendations based on her clinical status I, the cosigning physician, performed a history & physical examination of the patient. Lungs sounds with bilateral scattered rhonchi. Maintaining good O2 saturations in the 90s on room air. I discussed the assessment and plan of care with my nurse practitioner, Leyla Grace. I attest to the above consultation as dictated by her. Time with Patient: Greater than 30
[2021-03-13 16:48] LABS: Glucose,Whole Blood 150 mg/dL (75-99)
[2021-03-13] MEDS: 1: MVI, ADULT NO.4 WITH VIT K 10 ML, TRACE (CONC-1ML/DOSE) 1 ML in AMINO ACID 5%-D20W+LY IV SCH ×3 (17:24)
[2021-03-13] MEDS: MELATONIN 5 MG TABLET PO SCH (19:38)
[2021-03-13] MEDS: buPROPion XL 150 MG TAB.ER.24H PO SCH (19:39)
[2021-03-13] MEDS: guaiFENesin-DM 600/30MG 1 EACH TAB.ER.12H PO SCH (19:39)
[2021-03-13 20:02] LABS: Glucose,Whole Blood 156 mg/dL (75-99)
[2021-03-13] MEDS: MIRTAZAPINE 45 MG TABLET PO SCH (20:44)
[2021-03-14] MEDS: PIPERACILLIN-TAZOBACTAM 3.375 GM in SODIUM CHLORIDE 0.9% 100 ML IVPB SCH ×4 (00:51→23:02)
[2021-03-14 03:05] LABS: Glucose,Whole Blood 136 mg/dL (75-99)
[2021-03-14] MEDS: LEVOTHYROXINE 88 MCG TAB PO SCH (05:47)
[2021-03-14] MEDS: HYDROcodone/APAP 10-325MG 1 EACH TAB PO PRN ×3 (05:49→21:30)
[2021-03-14 07:29] LABS: Glucose,Whole Blood 155 mg/dL (75-99)
[2021-03-14] MEDS: INSULIN ASPART (NovoLOG) 100 UNIT/ML VIAL SQ SCH ×4 (07:40→21:25)
[2021-03-14] MEDS: PANTOPRAZOLE 40 MG TABLET PO SCH ×2 (07:44→17:27)
[2021-03-14] MEDS: POTASSIUM CHLORIDE ER 10 MEQ TAB.ER.PRT PO SCH (07:44)
[2021-03-14] MEDS: FUROSEMIDE 20 MG TAB PO SCH (07:44)
[2021-03-14] MEDS: busPIRone HCl 10 MG TAB PO SCH ×2 (07:44→21:30)
[2021-03-14] MEDS: FOLIC ACID 1 MG TAB PO SCH (07:44)
[2021-03-14] MEDS: guaiFENesin-DM 600/30MG 1 EACH TAB.ER.12H PO SCH ×2 (07:45→21:30)
[2021-03-14] MEDS: buPROPion XL 300 MG TAB.ER.24H PO SCH (07:45)
[2021-03-14] MEDS: FERROUS SULFATE 325 MG TAB PO SCH (07:45)
[2021-03-14] MEDS: LORATADINE 10 MG TAB PO SCH (07:45)
[2021-03-14] MEDS: THIAMINE 100 MG TAB PO SCH (07:45)
[2021-03-14] MEDS: BUTALB/APAP/CAFF 50-325-40MG TAB PO PRN ×2 (07:51→19:38)
[2021-03-14] MEDS: hydrOXYzine pamoate 25 MG CAP PO SCH ×3 (07:53→23:02)
[2021-03-14 08:33] LABS: ALT 7 U/L (4-34); AST 31 U/L (14-36); African American GFR (CKD) 44 (>60 ml/min/1.73 sqM); Albumin 2.9 g/dL (3.5-5.0); Albumin/Globulin Ratio 1.1; Alkaline Phosphatase 182 U/L (38-126); Anion Gap 6 mmol/L; Blood Urea Nitrogen 25 mg/dL (7-17); Calcium 7.8 mg/dL (8.4-10.2); Carbon Dioxide 24 mmol/L (22-30); Chloride 102 mmol/L (98-107); Globulin 2.7 g/dL; Glucose 133 mg/dL (74-99); Magnesium 2.3 mg/dL (1.6-2.3); Non-African American GFR(CKD) 38 (>60 ml/min/1.73 sqM); Sodium 132 mmol/L (137-145); Total Bilirubin 0.4 mg/dL (0.2-1.3); Total Protein 5.6 g/dL (6.3-8.2)
[2021-03-14] MEDS: 1: MVI, ADULT NO.4 WITH VIT K 10 ML, TRACE (CONC-1ML/DOSE) 1 ML in AMINO ACID 5%-D20W+LY IV SCH ×3 (08:56)
[2021-03-14] MEDS: ALBUTEROL NEBULIZED 2.5 MG/3 ML INHALATION SCH ×4 (09:20→20:04)
[2021-03-14 10:54] LABS: Basophils # (A) 0.07 X 10*3/uL (0.00-0.10); Basophils % (A) 0.6 %; Eosinophils # (A) 0.35 X 10*3/uL (0.04-0.35); HCT 25.4 % (37.2-46.3); HGB 7.2 g/dL (12.0-15.0); Lymphocytes % (A) 7.8 %; MCH 24.5 pg (27.0-32.0); MCHC 28.3 g/dL (32.0-37.0); MCV 86.4 fL (80.0-97.0); Mean Platelet Volume 8.4 fL (9.5-12.2); Monocytes # (A) 1.15 X 10*3/uL (0.20-1.00); Monocytes % (A) 9.9 %; Neutrophils # (A) 9.02 X 10*3/uL (1.80-7.70); Neutrophils % (A) 77.8 %; Platelet Count 388 X 10*3/uL (140-440); RBC 2.94 X 10*6/uL (4.10-5.20); RDW 21.6 % (11.5-14.5)
[2021-03-14] MEDS ORDERED: AZITHROMYCIN 500 MG TAB PO SCH (12:00)
[2021-03-14 12:11] LABS: Glucose,Whole Blood 126 mg/dL (75-99)
--- NOTE | 2021-03-14 14:12 | P.PN ---
Subjective Progress Note Date: 03/14/21 Louise Stuton, is a 75 year old female who presented to [facility] emergency room with a chief complaint of mental status changes and hallucinations, patient has a known history of chronic pain syndrome maintained on narcotics she stated that she was maintained on fentanyl patch and [place], she stated that she recently was switched to oral morphine however she started having confusion and hallucination when she was switched to oral morphine, she spoke to her primary care physician Dr. Eli and she was switched back to fentanyl and [place]. She was evaluated by her visiting nurse and was found to be confused and not able to take care of her medications and TPN and was advised to go to the hospital. She was evaluated in the emergency room vital examination on presentation revealed a temperature of 98.5 pulse 112 respiration 16 blood pressure 120/89 pulse ox 93% on room air Laboratory data revealed a white blood count of 11.6 hemoglobin 8.5 platelet count 606 sodium 129 potassium 3.9 chloride 91 BUN 27 creatinine 1.68 COVID-19 testing was negative Testing in the emergency room revealed chest x-ray done in the emergency room revealed worsening left mid lung and basilar consolidation suggestive of pneumonia, computed tomography scan of the brain revealed no acute intracranial changes Patient was admitted to medical floor for further evaluation and treatment On 03/13/2021 patient is alert and oriented 3. Patient is answering questions appropriately. She remains on IV antibiotics of azithromycin and Zosyn. Pulmonary services have been consulted. Patient reports that she does feel phlegm in her chest. Patient denies chest pain. Patient denies nausea vomiting or diarrhea. Patient denies any urinary burning or frequency. On 03/14/2021 patient was seen and examined on the telemetry floor she is alert and oriented 3 in no apparent distress she is complaining of generalized pain otherwise she denies any complaints at this time there is no fever or chills no headache or dizziness she has occasional cough no chest pain or shortness of breath no nausea or vomiting no abdominal pain no diarrhea no blood in the stools no burning with urination no frequency or urgency and no hematuria Objective - Vital Signs Vital signs: Vital Signs Temp 97.7 F 03/14/21 11:32 Pulse 84 03/14/21 12:38 Resp 16 03/14/21 11:32 BP 118/62 03/14/21 11:32 Pulse Ox 97 03/14/21 11:32 Intake & Output 03/13/21 03/14/21 03/14/21 18:59 06:59 18:59 Other: Voiding Method Toilet Toilet # Voids 3 2 - Exam In general patient is alert and oriented x 3 in no distress HEENT head normocephalic and atraumatic Neck is supple no JVD no goiter no lymphadenopathy no carotid bruit Chest examination is clear to auscultation no crackles no wheezing Cardiac exam reveals regular heart sounds S1 and S2 no gallops no murmurs Abdomen is soft nontender no organomegaly with normal bowel sounds Extremity exam reveals no edema no cyanosis or clubbing Neurological examination reveals no gross focal deficits - Labs CBC & Chem 7: 03/14/21 07:19 03/14/21 07:19 Labs: Abnormal Lab Results - Last 24 Hours (Table) 03/13/21 03/13/21 03/14/21 Range/Units 16:46 20:00 03:03 WBC (4.50-10.00) X 10*3/uL RBC (4.10-5.20) X 10*6/uL Hgb (12.0-15.0) g/dL Hct (37.2-46.3) % MCH (27.0-32.0) pg MCHC (32.0-37.0) g/dL RDW (11.5-14.5) % MPV (9.5-12.2) fL Immature Gran # (0.00-0.04) X 10*3/uL Neutrophils # (1.80-7.70) X 10*3/uL Monocytes # (0.20-1.00) X 10*3/uL Sodium (137-145) mmol/L BUN (7-17) mg/dL Creatinine (0.52-1.04) mg/dL Glucose (74-99) mg/dL POC Glucose (mg/dL) 150 H 156 H 136 H (75-99) mg/dL Calcium (8.4-10.2) mg/dL Alkaline Phosphatase (38-126) U/L Total Protein (6.3-8.2) g/dL Albumin (3.5-5.0) g/dL 03/14/21 03/14/21 03/14/21 Range/Units 07:19 07:19 07:27 WBC 11.60 H (4.50-10.00) X 10*3/uL RBC 2.94 L (4.10-5.20) X 10*6/uL Hgb 7.2 L (12.0-15.0) g/dL Hct 25.4 L (37.2-46.3) % MCH 24.5 L (27.0-32.0) pg MCHC 28.3 L (32.0-37.0) g/dL RDW 21.6 H (11.5-14.5) % MPV 8.4 L (9.5-12.2) fL Immature Gran # 0.11 H (0.00-0.04) X 10*3/uL Neutrophils # 9.02 H (1.80-7.70) X 10*3/uL Monocytes # 1.15 H (0.20-1.00) X 10*3/uL Sodium 132 L (137-145) mmol/L BUN 25 H (7-17) mg/dL Creatinine 1.38 H (0.52-1.04) mg/dL Glucose 133 H (74-99) mg/dL POC Glucose (mg/dL) 155 H (75-99) mg/dL Calcium 7.8 L (8.4-10.2) mg/dL Alkaline Phosphatase 182 H (38-126) U/L Total Protein 5.6 L (6.3-8.2) g/dL Albumin 2.9 L (3.5-5.0) g/dL 03/14/21 Range/Units 12:10 WBC (4.50-10.00) X 10*3/uL RBC (4.10-5.20) X 10*6/uL Hgb (12.0-15.0) g/dL Hct (37.2-46.3) % MCH (27.0-32.0) pg MCHC (32.0-37.0) g/dL RDW (11.5-14.5) % MPV (9.5-12.2) fL Immature Gran # (0.00-0.04) X 10*3/uL Neutrophils # (1.80-7.70) X 10*3/uL Monocytes # (0.20-1.00) X 10*3/uL Sodium (137-145) mmol/L BUN (7-17) mg/dL Creatinine (0.52-1.04) mg/dL Glucose (74-99) mg/dL POC Glucose (mg/dL) 126 H (75-99) mg/dL Calcium (8.4-10.2) mg/dL Alkaline Phosphatase (38-126) U/L Total Protein (6.3-8.2) g/dL Albumin (3.5-5.0) g/dL Microbiology - Last 24 Hours (Table) 03/11/21 14:25 Blood Culture Gram Stain - Preliminary Blood 03/11/21 14:25 Blood Culture - Final Blood 03/11/21 14:41 Blood Culture - Preliminary Blood No Growth after 48 hours Assessment and Plan Plan: Mental status change with confusion and hallucinations, likely related to the changes in narcotics will monitor closely currently patient is alert and responsive and answering questions appropriately Hyponatremia improved Evidence of pneumonia, on chest x-ray patient has recurrent episodes of pneumonia she was started on IV antibiotics and was admitted to medical floor pulmonary consultation was requested Chronic pain syndrome maintained on narcotics for pain management, narcotics were recently changed from fentanyl to morphine and again back to fentanyl, patient states that this change is what's causing her hallucinations. History of peptic ulcer disease with history of gastric resection, patient is maintained on TPN At this time patient is admitted to medical floor she was started on IV antibiotics she was restarted on her home medications including fentanyl and [place] Repeat labs ordered Will follow closely will assess need for any further workup
--- NOTE | 2021-03-14 15:13 | P.PN ---
Subjective Progress Note Date: 03/14/21 This is a very pleasant 75-year-old female patient with a known history of gastroesophageal reflux disease with previous gastrectomy secondary to gastric ulcers and difficulty in swallowing. She's had multiple aspiration pneumonias. She now receives TPN via a right subclavian port and is mainly nothing by mouth. She does have a history of asthmatic bronchitis and is maintained on Symbicort and Ventolin. She's had extensive right upper lobe pneumonia is due to aspiration. She's been treated in the outpatient setting on meropenem as well as cefazolin. Her most recent pneumonia was secondary to methicillin sensitive staph aureus. He presented here to the emergency room on 03/11/2021 with compl aints of increasing shortness of breath, cough and congestion. X-ray revealed worsening left midlung and basilar consolidations. Fairly stable right upper to mid lung consolidation. She is seen today in consultation on the regular medical floor. She is currently sitting up in bed. Awake and alert in no acute distress. Maintaining O2 saturations in the upper 90s on room air. She's afebrile. Hemodynamically stable. Cultures reveal no growth to date. White count 14.1. Hemoglobin 8.0. Sodium 136. Potassium 3.6. Creatinine 1.5. AST 44. ALT 7. Albumin 3.4. She's been initiated on azithromycin and Zosyn. The patient is seen today 03/14/2021 in follow-up on the regular medical floor. She is currently resting comfortably in bed. Awake and alert in no acute distress. He is maintaining good O2 saturations in the mid 90s on room air. She's afebrile. Hemodynamically stable. Blood cultures reveal no growth to date. White count 11.6. Hemoglobin 7.2. Sodium 132. Potassium 5.0. Creatinine 1.38. She remains on Zosyn and Zithromax. Eraxis added today per medicine. Objective - Vital Signs Vital signs: Vital Signs Temp 98.0 F 03/14/21 14:00 Pulse 99 03/14/21 14:00 Resp 14 03/14/21 14:00 BP 128/70 03/14/21 14:00 Pulse Ox 97 03/14/21 14:00 Intake & Output 03/13/21 03/14/21 03/14/21 18:59 06:59 18:59 Other: Voiding Method Toilet Toilet # Voids 3 2 - Exam GENERAL EXAM: Alert, very pleasant 75-year-old female patient, frail, on room air, comfortable in no apparent distress. HEAD: Normocephalic. EYES: Normal reaction of pupils, equal size. NOSE: Clear with pink turbinates. THROAT: No erythema or exudates. NECK: No masses, no JVD. CHEST: No chest wall deformity. Right subclavian Mediport in place. LUNGS: Equal air entry with bilateral scattered rhonchi more so on the left. CVS: S1 and S2 normal with no audible murmur, regular rhythm. ABDOMEN: No hepatosplenomegaly, normal bowel sounds, no guarding or rigidity. SPINE: No scoliosis or deformity SKIN: No rashes CENTRAL NERVOUS SYSTEM: No focal deficits, tone is normal in all 4 extremities. EXTREMITIES: There is no peripheral edema. No clubbing, no cyanosis. Pe ripheral pulses are intact. - Labs CBC & Chem 7: 03/14/21 07:19 03/14/21 07:19 Labs: Abnormal Lab Results - Last 24 Hours (Table) 03/13/21 03/13/21 03/14/21 Range/Units 16:46 20:00 03:03 WBC (4.50-10.00) X 10*3/uL RBC (4.10-5.20) X 10*6/uL Hgb (12.0-15.0) g/dL Hct (37.2-46.3) % MCH (27.0-32.0) pg MCHC (32.0-37.0) g/dL RDW (11.5-14.5) % MPV (9.5-12.2) fL Immature Gran # (0.00-0.04) X 10*3/uL Neutrophils # (1.80-7.70) X 10*3/uL Monocytes # (0.20-1.00) X 10*3/uL Sodium (137-145) mmol/L BUN (7-17) mg/dL Creatinine (0.52-1.04) mg/dL Glucose (74-99) mg/dL POC Glucose (mg/dL) 150 H 156 H 136 H (75-99) mg/dL Calcium (8.4-10.2) mg/dL Alkaline Phosphatase (38-126) U/L Total Protein (6.3-8.2) g/dL Albumin (3.5-5.0) g/dL 03/14/21 03/14/21 03/14/21 Range/Units 07:19 07:19 07:27 WBC 11.60 H (4.50-10.00) X 10*3/uL RBC 2.94 L (4.10-5.20) X 10*6/uL Hgb 7.2 L (12.0-15.0) g/dL Hct 25.4 L (37.2-46.3) % MCH 24.5 L (27.0-32.0) pg MCHC 28.3 L (32.0-37.0) g/dL RDW 21.6 H (11.5-14.5) % MPV 8.4 L (9.5-12.2) fL Immature Gran # 0.11 H (0.00-0.04) X 10*3/uL Neutrophils # 9.02 H (1.80-7.70) X 10*3/uL Monocytes # 1.15 H (0.20-1.00) X 10*3/uL Sodium 132 L (137-145) mmol/L BUN 25 H (7-17) mg/dL Creatinine 1.38 H (0.52-1.04) mg/dL Glucose 133 H (74-99) mg/dL POC Glucose (mg/dL) 155 H (75-99) mg/dL Calcium 7.8 L (8.4-10.2) mg/dL Alkaline Phosphatase 182 H (38-126) U/L Total Protein 5.6 L (6.3-8.2) g/dL Albumin 2.9 L (3.5-5.0) g/dL 03/14/21 Range/Units 12:10 WBC (4.50-10.00) X 10*3/uL RBC (4.10-5.20) X 10*6/uL Hgb (12.0-15.0) g/dL Hct (37.2-46.3) % MCH (27.0-32.0) pg MCHC (32.0-37.0) g/dL RDW (11.5-14.5) % MPV (9.5-12.2) fL Immature Gran # (0.00-0.04) X 10*3/uL Neutrophils # (1.80-7.70) X 10*3/uL Monocytes # (0.20-1.00) X 10*3/uL Sodium (137-145) mmol/L BUN (7-17) mg/dL Creatinine (0.52-1.04) mg/dL Glucose (74-99) mg/dL POC Glucose (mg/dL) 126 H (75-99) mg/dL Calcium (8.4-10.2) mg/dL Alkaline Phosphatase (38-126) U/L Total Protein (6.3-8.2) g/dL Albumin (3.5-5.0) g/dL Microbiology - Last 24 Hours (Table) 03/11/21 14:25 Blood Culture Gram Stain - Preliminary Blood 03/11/21 14:25 Blood Culture - Final Blood 03/11/21 14:41 Blood Culture - Preliminary Blood No Growth after 48 hours Assessment and Plan Assessment: 1 Acute community-acquired versus aspiration pneumonia in a patient with a known history of MSSA pneumonia on bronchial wash from 02/22/2021 2 Recurrent pneumonias previously on meropenem and cefazolin in the outpatient setting. 3 History of aspiration pneumonias due to history of previous gastrectomy 4 History of gastrectomy secondary to gastric ulcers, being nourished via TPN via right subclavian Mediport. 5 Gastroesophageal reflux disease 5 Chronic pain syndrome 6 Chronic renal failure stage IV 7 Anxiety/depression/panic disorder Plan: The patient was seen and evaluated by Dr. Sanchez Continue Zosyn and azithromycin for now Obtain a sputum sample Follow-up chest x-ray in the a.m. Continue TPN for nutritional support We will continue to follow I, the cosigning physician, performed a history & physical examination of the patient. Lungs sounds with bilateral scattered rhonchi. Maintaining good O2 saturations in the 90s on room air. I discussed the assessment and plan of care with my nurse practitioner, Leyla Grace. I attest to the above note as dictated by her.
[2021-03-14] MEDS ORDERED: ANIDULAFUNGIN 200 MG in SODIUM CHLORIDE 0.9% 200 ML IVPB ONE (16:00)
[2021-03-14 16:56] LABS: Glucose,Whole Blood 114 mg/dL (75-99)
[2021-03-14 20:42] LABS: Glucose,Whole Blood 130 mg/dL (75-99)
[2021-03-14] MEDS: MELATONIN 5 MG TABLET PO SCH (21:30)
[2021-03-14] MEDS: buPROPion XL 150 MG TAB.ER.24H PO SCH (21:30)
[2021-03-14] MEDS: MIRTAZAPINE 45 MG TABLET PO SCH (21:30)
[2021-03-14 23:01] LABS: % Iron Saturation 14.33 (12.00-45.00)
[2021-03-15] MEDS: 1: MVI, ADULT NO.4 WITH VIT K 10 ML, TRACE (CONC-1ML/DOSE) 1 ML in AMINO ACID 5%-D20W+LY IV SCH ×3 (00:37)
[2021-03-15 02:02] LABS: Glucose,Whole Blood 121 mg/dL (75-99)
[2021-03-15] MEDS: BUTALB/APAP/CAFF 50-325-40MG TAB PO PRN ×2 (02:09→15:35)
[2021-03-15] MEDS: HYDROcodone/APAP 10-325MG 1 EACH TAB PO PRN ×3 (05:27→20:45)
[2021-03-15] MEDS: LEVOTHYROXINE 88 MCG TAB PO SCH (05:44)
[2021-03-15 06:50] LABS: Glucose,Whole Blood 137 mg/dL (75-99)
[2021-03-15] MEDS: PANTOPRAZOLE 40 MG TABLET PO SCH ×2 (07:30→18:05)
[2021-03-15] MEDS: INSULIN ASPART (NovoLOG) 100 UNIT/ML VIAL SQ SCH ×4 (07:30→20:32)
[2021-03-15] MEDS: busPIRone HCl 10 MG TAB PO SCH ×2 (07:46→20:44)
[2021-03-15] MEDS: FERROUS SULFATE 325 MG TAB PO SCH (07:46)
[2021-03-15] MEDS: FOLIC ACID 1 MG TAB PO SCH (07:46)
[2021-03-15] MEDS: FUROSEMIDE 20 MG TAB PO SCH (07:46)
[2021-03-15] MEDS: LORATADINE 10 MG TAB PO SCH (07:47)
[2021-03-15] MEDS: buPROPion XL 300 MG TAB.ER.24H PO SCH (07:47)
[2021-03-15] MEDS: THIAMINE 100 MG TAB PO SCH (07:47)
[2021-03-15] MEDS: guaiFENesin-DM 600/30MG 1 EACH TAB.ER.12H PO SCH ×2 (07:50→20:49)
[2021-03-15 07:52] LABS: Potassium 5.4 mmol/L (3.5-5.1)
[2021-03-15 07:53] LABS: ALT 7 U/L (4-34); AST 21 U/L (14-36); African American GFR (CKD) 41 (>60 ml/min/1.73 sqM); Albumin 2.8 g/dL (3.5-5.0); Albumin/Globulin Ratio 0.9; Alkaline Phosphatase 185 U/L (38-126); Anion Gap 6 mmol/L; Blood Urea Nitrogen 31 mg/dL (7-17); Carbon Dioxide 28 mmol/L (22-30); Chloride 99 mmol/L (98-107); Glucose 128 mg/dL (74-99); Non-African American GFR(CKD) 35 (>60 ml/min/1.73 sqM); Phosphorus 2.9 mg/dL (2.5-4.5); Sodium 133 mmol/L (137-145); Total Bilirubin 0.4 mg/dL (0.2-1.3); Total Protein 5.8 g/dL (6.3-8.2)
[2021-03-15] MEDS: PIPERACILLIN-TAZOBACTAM 3.375 GM in SODIUM CHLORIDE 0.9% 100 ML IVPB SCH ×2 (08:00→16:52)
[2021-03-15] MEDS: ALBUTEROL NEBULIZED 2.5 MG/3 ML INHALATION SCH ×4 (09:02→19:13)
--- NOTE | 2021-03-15 09:35 | P.PN ---
Subjective Progress Note Date: 03/15/21 Louise Sutton, is a 75 year old female who presented to [facility] emergency room with a chief complaint of mental status changes and hallucinations, patient has a known history of chronic pain syndrome maintained on narcotics she stated that she was maintained on fentanyl patch and Concord, she stated that she recently was switched to oral morphine however she started having confusion and hallucination when she was switched to oral morphine, she spoke to her primary care physician Dr. Eli and she was switched back to fentanyl and Concord. She was evaluated by her visiting nurse and was found to be confused and not able to take care of her medications and TPN and was advised to go to the hospital. She was evaluated in the emergency room vital examination on presentation revealed a temperature of 98.5 pulse 112 respiration 16 blood pressure 120/89 pulse ox 93% on room air Laboratory data revealed a white blood count of 11.6 hemoglobin 8.5 platelet count 606 sodium 129 potassium 3.9 chloride 91 BUN 27 creatinine 1.68 COVID-19 testing was negative Testing in the emergency room revealed chest x-ray done in the emergency room revealed worsening left mid lung and basilar consolidation suggestive of pneumonia, computed tomography scan of the brain revealed no acute intracranial changes Patient was admitted to medical floor for further evaluation and treatment On 03/13/2021 patient is alert and oriented 3. Patient is answering questions appropriately. She remains on IV antibiotics of azithromycin and Zosyn. Pulmonary services have been consulted. Patient reports that she does feel phlegm in her chest. Patient denies chest pain. Patient denies nausea vomiting or diarrhea. Patient denies any urinary burning or frequency. On 03/14/2021 patient was seen and examined on the telemetry floor she is alert and oriented 3 in no apparent distress she is complaining of generalized pain otherwise she denies any complaints at this time there is no fever or chills no headache or dizziness she has occasional cough no chest pain or shortness of breath no nausea or vomiting no abdominal pain no diarrhea no blood in the stools no burning with urination no frequency or urgency and no hematuria On 03/15/2020 1 patient's alert and oriented 3. Patient still blunting of some shortness of breath and chest congestion. Patient denies any nausea vomiting or diarrhea. Patient denies any urinary burning or frequency. Patient remains on IV antibiotics TPN and lipids Objective - Vital Signs Vital signs: Vital Signs Temp 98.5 F 03/15/21 02:00 Pulse 88 03/15/21 09:17 Resp 18 03/15/21 09:17 BP 138/71 03/15/21 02:00 Pulse Ox 95 03/15/21 09:02 Intake & Output 03/14/21 03/15/21 03/15/21 18:59 06:59 18:59 Intake Total 1000 220 Balance 1000 220 Intake: Intake, IV Titration 1000 Amount Amino Acid 5%-D20w+Lytes* 1000 E* 1,000 ml @ 60 mls/hr IV .BY DURATION CHAD Rx#: [id number] Oral 220 Other: Voiding Method Toilet Toilet Toilet # Voids 4 3 - Exam In general patient is alert and oriented x 3 in no distress HEENT head normocephalic and atraumatic Neck is supple no JVD no goiter no lymphadenopathy no carotid bruit Chest examination is clear to auscultation no crackles no wheezing Cardiac exam reveals regular heart sounds S1 and S2 no gallops no murmurs Abdomen is soft nontender no organomegaly with normal bowel sounds Extremity exam reveals no edema no cyanosis or clubbing Neurological examination reveals no gross focal deficits - Labs CBC & Chem 7: 03/14/21 07:19 03/15/21 06:41 Labs: Abnormal Lab Results - Last 24 Hours (Table) 03/14/21 03/14/21 03/14/21 Range/Units 07:19 12:10 14:56 WBC 11.60 H (4.50-10.00) X 10*3/uL RBC 2.94 L (4.10-5.20) X 10*6/uL Hgb 7.2 L (12.0-15.0) g/dL Hct 25.4 L (37.2-46.3) % MCH 24.5 L (27.0-32.0) pg MCHC 28.3 L (32.0-37.0) g/dL RDW 21.6 H (11.5-14.5) % MPV 8.4 L (9.5-12.2) fL Immature Gran # 0.11 H (0.00-0.04) X 10*3/uL Neutrophils # 9.02 H (1.80-7.70) X 10*3/uL Monocytes # 1.15 H (0.20-1.00) X 10*3/uL Sodium (137-145) mmol/L Potassium (3.5-5.1) mmol/L BUN (7-17) mg/dL Creatinine (0.52-1.04) mg/dL Glucose (74-99) mg/dL POC Glucose (mg/dL) 126 H (75-99) mg/dL Calcium (8.4-10.2) mg/dL Iron 36 L (50-170) ug/dL Transferrin 177.0 L (204.0-354.0) mg/dL Alkaline Phosphatase (38-126) U/L Total Protein (6.3-8.2) g/dL Albumin (3.5-5.0) g/dL 03/14/21 03/14/21 03/15/21 Range/Units 16:54 20:41 02:00 WBC (4.50-10.00) X 10*3/uL RBC (4.10-5.20) X 10*6/uL Hgb (12.0-15.0) g/dL Hct (37.2-46.3) % MCH (27.0-32.0) pg MCHC (32.0-37.0) g/dL RDW (11.5-14.5) % MPV (9.5-12.2) fL Immature Gran # (0.00-0.04) X 10*3/uL Neutrophils # (1.80-7.70) X 10*3/uL Monocytes # (0.20-1.00) X 10*3/uL Sodium (137-145) mmol/L Potassium (3.5-5.1) mmol/L BUN (7-17) mg/dL Creatinine (0.52-1.04) mg/dL Glucose (74-99) mg/dL POC Glucose (mg/dL) 114 H 130 H 121 H (75-99) mg/dL Calcium (8.4-10.2) mg/dL Iron (50-170) ug/dL Transferrin (204.0-354.0) mg/dL Alkaline Phosphatase (38-126) U/L Total Protein (6.3-8.2) g/dL Albumin (3.5-5.0) g/dL 03/15/21 03/15/21 Range/Units 06:41 06:48 WBC (4.50-10.00) X 10*3/uL RBC (4.10-5.20) X 10*6/uL Hgb (12.0-15.0) g/dL Hct (37.2-46.3) % MCH (27.0-32.0) pg MCHC (32.0-37.0) g/dL RDW (11.5-14.5) % MPV (9.5-12.2) fL Immature Gran # (0.00-0.04) X 10*3/uL Neutrophils # (1.80-7.70) X 10*3/uL Monocytes # (0.20-1.00) X 10*3/uL Sodium 133 L (137-145) mmol/L Potassium 5.4 H (3.5-5.1) mmol/L BUN 31 H (7-17) mg/dL Creatinine 1.47 H (0.52-1.04) mg/dL Glucose 128 H (74-99) mg/dL POC Glucose (mg/dL) 137 H (75-99) mg/dL Calcium 8.0 L (8.4-10.2) mg/dL Iron (50-170) ug/dL Transferrin (204.0-354.0) mg/dL Alkaline Phosphatase 185 H (38-126) U/L Total Protein 5.8 L (6.3-8.2) g/dL Albumin 2.8 L (3.5-5.0) g/dL Microbiology - Last 24 Hours (Table) 03/11/21 14:41 Blood Culture - Preliminary Blood No Growth after 72 hours 03/11/21 14:25 Blood Culture Gram Stain - Preliminary Blood 03/11/21 14:25 Blood Culture - Final Blood Assessment and Plan Plan: Mental status change with confusion and hallucinations, likely related to the changes in narcotics will monitor closely currently patient is alert and responsive and answering questions appropriately Hyponatremia improved Evidence of pneumonia, on chest x-ray patient has recurrent episodes of pneumonia she was started on IV antibiotics and was admitted to medical floor pulmonary consultation was requested Chronic pain syndrome maintained on narcotics for pain management, narcotics were recently changed from fentanyl to morphine and again back to fentanyl, patient states that this change is what's causing her hallucinations. History of peptic ulcer disease with history of gastric resection, patient is maintained on TPN At this time patient is admitted to medical floor she was started on IV antibiotics she was restarted on her home medications including fentanyl and Concord Repeat labs ordered Will follow closely will assess need for any further workup
[2021-03-15] MEDS: hydrOXYzine pamoate 25 MG CAP PO SCH ×3 (09:54→20:46)
--- NOTE | 2021-03-15 10:11 | P.CONS ---
History of Present Illness - Reason for Consult Consult date: 03/14/21 yeast + Blood cultures Requesting physician: Palmer Desir - Chief Complaint hallucinations x few days - History of Present Illness History of present illness : Patient is 75-year-old female presenting to the ER 3 days ago for evaluation of her mental status changes according to the nurse at home the patient was hallucinating and was thought to be related to change in her not narcotics medication patient EMS was called and the patient subsequently brought to the hospital patient on presentation the hospital did not have any chest pain shortness of breath or cough patient did not have any fever and no fever was recorded subsequently patient is currently satting 97% on room air patient did have elevated white count of 11.6 with jumped to 16 2 days ago but is down to 11.60 today patient did have a elevated BUN and creatinine liver enzymes are normal urine is negative matute PCR was negative patient did have a chest x-ray worsening left midlung and basilar consolidation patient is currently being treated with Zosyn and Zithromax of suspected pneumonia patient did have blood cultures drawn which came back positive for yeast that has prompted this infectious disease consultation patient did have a right chest port that has been placed few months ago and the patient is currently getting TPN through them patient did not have any symptom related to the port site patient denies having any chest pain no shortness breath minimal cough no vomiting or diarrhea Review of system: CONSTITUTIONAL: Positive for weakness denies fever. EYES: No complaint. ENT: No complaint. RESPIRATORY: As per history of present illness. CARDIOVASCULAR: No complaint. GENITOURINARY: No complaint. GASTROINTESTINAL: No complaint. MUSCULOSKELETAL: No complaint. INTEGUMENTARY: No complaint. PSYCHOLOGIC: No complaint. ENDOCRINE: No complaint. NEUROLOGIC: As per history of present illness. Past medical history : Reviewed, documented below Past surgical history : Reviewed, documented below Social history: Reviewed, documented below Medications: Reviewed, as documented below EXAMINATION: Vital sigans= Reviewed and documented below GENERAL DESCRIPTION elderly female lying in bed, no distress. No tachypnea or accessory muscle of respiration use. HEENT: Shows Pallor , no scleral icterus. Oral mucous membrane is dry. NECK: Trachea central, no thyromegaly. LUNGS: Unlabored breathing. Decreased breath sound at the base. No wheeze or crackle. HEART: S1, S2, regular rate and rhythm. ABDOMEN: Soft, no tenderness , guarding or rigidity EXTREMITIES: No edema of feet. SKIN: No rash, no masses palpable. NEUROLOGICAL: The patient is awake, alert, oriented x3, mood and affect normal. LABS AND RADIOLOGY: Reviewed results see below Assessment : 1-patient with a positive blood culture with yeast more likely due to her central line in this patient getting TPN through it, currently with no abdominal pain or tenderness and no urinary symptoms 1-[id number]-[id number] pneumonia question of aspiration etiology Plan: 1-blood cultures will be repeated from the line as well as peripherally 2-patient has been started on Eraxis to continue 3-try to obtain a sputum for Gram stain culture 4-continue with Zosyn discontinue Zithromax We will follow on clinical condition and cultures to further adjust medication if needed Thank you for this consultation we will follow the patient along with you Past Medical History Past Medical History: Asthma, COPD, GERD/Reflux, Memory Impairment, Respiratory Disorder, Thyroid Disorder Additional Past Medical History / Comment(s): 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 History of Any Multi-Drug Resistant Organisms: None Reported Past Surgical History: Back Surgery, Bowel Resection, Hysterectomy, Joint Repla cement Additional Past Surgical History / Comment(s): LOWER BACK SURGERY l amenectomy/discetomy then had a revison of that sx. 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, nasal sx d/t broken nose, colonoscopy/egd, PAIN CLINIC PROCEDURES, PORT A CATH INSERTION, LT ADEOLA, Past Anesthesia/Blood Transfusion Reactions: No Reported Reaction Additional Past Anesthesia/Blood Transfusion Reaction / Comm: PT RECIEVED BLOOD TRANSFUSIONS AFTER STOMACH SURGERY Past Psychological History: Anxiety, Depression, Panic Disorder Smoking Status: Never smoker Past Alcohol Use History: None Reported Past Drug Use History: None Reported - Past Family History Father Family Medical History: Cancer, Coronary Artery Disease (CAD) Additional Family Medical History / Comment(s): FATHER HAD BLADDER AND KIDNEY CANCER. FATHER HAD TB WHEN HE WAS A CHILD .FATHER AT AGE 87. Mother Family Medical History: Cancer Additional Family Medical History / Comment(s): MOTHER AT AGE 58 OF OVARIAN CANCER. Medications and Allergies Home Medications Medication Instructions Recorded Confirmed Type Ferrous Sulfate [Iron (65 MG 325 mg PO DAILY 11/06/15 03/11/21 History Elemental)] Levothyroxine Sodium [Synthroid] 88 mcg PO DAILY 06/07/19 03/11/21 History calcitrioL [Calcitriol] 1 mcg PO MOWEFR 06/07/19 03/11/21 History busPIRone HCL [Buspar] 30 mg PO BID 04/14/20 03/11/21 History Potassium Chloride ER [K-Dur 10] 30 meq PO DAILY@1200 04/18/20 03/11/21 History hydrOXYzine pamoate [hydrOXYzine 25 mg PO TID 04/18/20 03/11/21 History PAMOATE] Pantoprazole Sodium [Protonix] 40 mg PO BID 30 Days #60 tablet. 04/27/20 03/11/21 Rx Butalb/APAP/Caff 50-325-40Mg 1 tab PO BID PRN 06/30/20 03/11/21 History [Fioricet 50-325-40] buPROPion XL [Wellbutrin XL] 150 mg PO HS 11/04/20 03/11/21 History Furosemide [Lasix] 20 mg PO DAILY #6 tab 12/13/20 03/11/21 Rx HYDROcodone/APAP 10-325MG [[place] 1 tab PO BID PRN 12/13/20 03/11/21 History 10-325] fentaNYL 75MCG/HR PATCH [Duragesic 1 patch TRANSDERM Q72H 3 Days #3 12/13/20 03/11/21 Rx 75MCG/HR] patch Tpn 1 each IV DAILY 02/20/21 03/11/21 History buPROPion XL [Wellbutrin XL] 300 mg PO QAM 02/20/21 03/11/21 History Folic Acid 1 mg PO DAILY 03/11/21 03/11/21 History Loratadine [Claritin] 10 mg PO DAILY 03/11/21 03/11/21 History Thiamine HCl [Vitamin B-1] 100 mg PO DAILY 03/11/21 03/11/21 History ceFAZolin [Kefzol] 1,000 mg IVPB Q12H 03/11/21 03/11/21 History Allergies Allergy/AdvReac Type Severity Reaction Status Date / Time denosumab [From Prolia] Allergy SEVERE Verified 03/11/21 17:14 CALCIUM LOSS DUST Allergy Itching Uncoded 03/11/21 17:14 MOLDS Allergy Itching Uncoded 02/20/21 14:59 Physical Exam Vitals: Vital Signs Temp Pulse Pulse Resp BP Pulse Ox 03/14/21 12:38 84 03/14/21 12:26 80 03/14/21 11:32 97.7 F 88 16 118/62 97 03/14/21 09:33 80 03/14/21 09:21 76 03/14/21 05:15 97.8 F 95 17 133/61 99 03/14/21 02:00 98.5 F 99 17 145/74 96 03/13/21 21:47 97.7 F 87 16 115/69 100 03/13/21 21:28 90 03/13/21 21:15 90 03/13/21 18:19 98.2 F 92 19 106/56 98 03/13/21 15:41 90 03/13/21 15:32 86 03/13/21 15:31 98 03/13/21 14:00 98.3 F 92 17 115/77 99 Intake and Output 03/13/21 03/14/21 03/14/21 22:59 06:59 14:59 Other: Voiding Method Toilet # Voids 1 2 Results CBC & Chem 7: 03/14/21 07:19 03/15/21 06:41 Labs: Abnormal Lab Results - Last 24 Hours (Table) 03/13/21 03/13/21 03/14/21 Range/Units 16:46 20:00 03:03 WBC (4.50-10.00) X 10*3/uL RBC (4.10-5.20) X 10*6/uL Hgb (12.0-15.0) g/dL Hct (37.2-46.3) % MCH (27.0-32.0) pg MCHC (32.0-37.0) g/dL RDW (11.5-14.5) % MPV (9.5-12.2) fL Immature Gran # (0.00-0.04) X 10*3/uL Neutrophils # (1.80-7.70) X 10*3/uL Monocytes # (0.20-1.00) X 10*3/uL Sodium (137-145) mmol/L BUN (7-17) mg/dL Creatinine (0.52-1.04) mg/dL Glucose (74-99) mg/dL POC Glucose (mg/dL) 150 H 156 H 136 H (75-99) mg/dL Calcium (8.4-10.2) mg/dL Alkaline Phosphatase (38-126) U/L Total Protein (6.3-8.2) g/dL Albumin (3.5-5.0) g/dL 03/14/21 03/14/21 03/14/21 Range/Units 07:19 07:19 07:27 WBC 11.60 H (4.50-10.00) X 10*3/uL RBC 2.94 L (4.10-5.20) X 10*6/uL Hgb 7.2 L (12.0-15.0) g/dL Hct 25.4 L (37.2-46.3) % MCH 24.5 L (27.0-32.0) pg MCHC 28.3 L (32.0-37.0) g/dL RDW 21.6 H (11.5-14.5) % MPV 8.4 L (9.5-12.2) fL Immature Gran # 0.11 H (0.00-0.04) X 10*3/uL Neutrophils # 9.02 H (1.80-7.70) X 10*3/uL Monocytes # 1.15 H (0.20-1.00) X 10*3/uL Sodium 132 L (137-145) mmol/L BUN 25 H (7-17) mg/dL Creatinine 1.38 H (0.52-1.04) mg/dL Glucose 133 H (74-99) mg/dL POC Glucose (mg/dL) 155 H (75-99) mg/dL Calcium 7.8 L (8.4-10.2) mg/dL Alkaline Phosphatase 182 H (38-126) U/L Total Protein 5.6 L (6.3-8.2) g/dL Albumin 2.9 L (3.5-5.0) g/dL 03/14/21 Range/Units 12:10 WBC (4.50-10.00) X 10*3/uL RBC (4.10-5.20) X 10*6/uL Hgb (12.0-15.0) g/dL Hct (37.2-46.3) % MCH (27.0-32.0) pg MCHC (32.0-37.0) g/dL RDW (11.5-14.5) % MPV (9.5-12.2) fL Immature Gran # (0.00-0.04) X 10*3/uL Neutrophils # (1.80-7.70) X 10*3/uL Monocytes # (0.20-1.00) X 10*3/uL Sodium (137-145) mmol/L BUN (7-17) mg/dL Creatinine (0.52-1.04) mg/dL Glucose (74-99) mg/dL POC Glucose (mg/dL) 126 H (75-99) mg/dL Calcium (8.4-10.2) mg/dL Alkaline Phosphatase (38-126) U/L Total Protein (6.3-8.2) g/dL Albumin (3.5-5.0) g/dL Microbiology - Last 24 Hours (Table) 03/11/21 14:25 Blood Culture Gram Stain - Preliminary Blood 03/11/21 14:25 Blood Culture - Final Blood 03/11/21 14:41 Blood Culture - Preliminary Blood No Growth after 48 hours
[2021-03-15 10:17] LABS: Basophils # (A) 0.05 X 10*3/uL (0.00-0.10); Basophils % (A) 0.5 %; Eosinophils # (A) 0.17 X 10*3/uL (0.04-0.35); Eosinophils % (A) 1.8 %; HCT 26.3 % (37.2-46.3); HGB 7.4 g/dL (12.0-15.0); Lymphocytes # (A) 0.45 X 10*3/uL (0.90-5.00); Lymphocytes % (A) 4.8 %; MCH 23.5 pg (27.0-32.0); MCHC 28.1 g/dL (32.0-37.0); MCV 83.5 fL (80.0-97.0); Mean Platelet Volume 9.3 fL (9.5-12.2); Monocytes # (A) 0.65 X 10*3/uL (0.20-1.00); Monocytes % (A) 6.9 %; Neutrophils # (A) 8.11 X 10*3/uL (1.80-7.70); Neutrophils % (A) 85.6 %; Platelet Count 408 X 10*3/uL (140-440); RBC 3.15 X 10*6/uL (4.10-5.20); WBC 9.47 X 10*3/uL (4.50-10.00)
[2021-03-15 12:09] LABS: Glucose,Whole Blood 140 mg/dL (75-99)
[2021-03-15] MEDS: ANIDULAFUNGIN 100 MG in SODIUM CHLORIDE 0.9% 100 ML IVPB SCH (16:51)
[2021-03-15 16:53] LABS: Glucose,Whole Blood 123 mg/dL (75-99)
--- NOTE | 2021-03-15 19:06 | P.PN ---
Subjective Progress Note Date: 03/15/21 This is a very pleasant 75-year-old female patient with a known history of gastroesophageal reflux disease with previous gastrectomy secondary to gastric ulcers and difficulty in swallowing. She's had multiple aspiration pneumonias. She now receives TPN via a right subclavian port and is mainly nothing by mouth. She does have a history of asthmatic bronchitis and is maintained on Symbicort and Ventolin. She's had extensive right upper lobe pneumonia is due to aspiration. She's been treated in the outpatient setting on meropenem as well as cefazolin. Her most recent pneumonia was secondary to methicillin sensitive staph aureus. He presented here to the emergency room on 03/11/2021 with compl aints of increasing shortness of breath, cough and congestion. X-ray revealed worsening left midlung and basilar consolidations. Fairly stable right upper to mid lung consolidation. She is seen today in consultation on the regular medical floor. She is currently sitting up in bed. Awake and alert in no acute distress. Maintaining O2 saturations in the upper 90s on room air. She's afebrile. Hemodynamically stable. Cultures reveal no growth to date. White count 14.1. Hemoglobin 8.0. Sodium 136. Potassium 3.6. Creatinine 1.5. AST 44. ALT 7. Albumin 3.4. She's been initiated on azithromycin and Zosyn. The patient is seen today 03/14/2021 in follow-up on the regular medical floor. She is currently resting comfortably in bed. Awake and alert in no acute distress. He is maintaining good O2 saturations in the mid 90s on room air. She's afebrile. Hemodynamically stable. Blood cultures reveal no growth to date. White count 11.6. Hemoglobin 7.2. Sodium 132. Potassium 5.0. Creatinine 1.38. She remains on Zosyn and Zithromax. Eraxis added today per medicine. The patient is seen today 03/15/2021 in follow-up on the regular medical floor. Currently resting quite comfortably in bed. No acute distress. Maintaining O2 saturations in the 90s on room air. She's afebrile. Hemodynamically stable. Cultures reveal no growth. White count 9.4. Hemoglobin 7.4. Sodium 133. Potassium 5.4. Creatinine 1.47. Glucose 128. He is continued on antibiotics in the form of Zosyn. Continues on TPN and lipids for nutritional support. Objective - Vital Signs Vital signs: Vital Signs Temp 98.6 F 03/15/21 14:24 Pulse 92 03/15/21 15:16 Resp 18 03/15/21 15:16 BP 102/61 03/15/21 14:24 Pulse Ox 94 L 03/15/21 15:00 Intake & Output 03/15/21 03/15/21 03/16/21 06:59 18:59 06:59 Intake Total 220 940 Balance 220 940 Weight 42.184 kg Intake: Intake, IV Titration 400 Amount Anidulafungin 200 mg In 200 Sodium Chloride 0.9% 200 ml @ 84 mls/hr IVPB ONCE ONE Rx#:[id number] Piperacillin-Tazobactam 3 200 .375 gm In Sodium Chloride 0.9% 100 ml @ 25 mls/hr IVPB Q8HR [facility] Rx# :[id number] Oral 220 540 Other: Voiding Method Toilet Toilet # Voids 3 2 - Exam GENERAL EXAM: Alert, very pleasant 75-year-old female patient, frail, on room air, comfortable in no apparent distress. HEAD: Normocephalic. EYES: Normal reaction of pupils, equal size. NOSE: Clear with pink turbinates. THROAT: No erythema or exudates. NECK: No masses, no JVD. CHEST: No chest wall deformity. Right subclavian Mediport in place. LUNGS: Equal air entry with bilateral scattered rhonchi more so on the left. CVS: S1 and S2 normal with no audible murmur, regular rhythm. ABDOMEN: No hepatosplenomegaly, normal bowel sounds, no guarding or rigidity. SPINE: No scoliosis or deformity SKIN: No rashes CENTRAL NERVOUS SYSTEM: No focal deficits, tone is normal in all 4 extremities. EXTREMITIES: There is no peripheral edema. No clubbing, no cyanosis. Peripheral pulses are intact. - Labs CBC & Chem 7: 03/15/21 06:41 03/15/21 06:41 Labs: Abnormal Lab Results - Last 24 Hours (Table) 03/14/21 03/14/21 03/15/21 Range/Units 14:56 20:41 02:00 RBC (4.10-5.20) X 10*6/uL Hgb (12.0-15.0) g/dL Hct (37.2-46.3) % MCH (27.0-32.0) pg MCHC (32.0-37.0) g/dL RDW (11.5-14.5) % MPV (9.5-12.2) fL Neutrophils # (1.80-7.70) X 10*3/uL Lymphocytes # (0.90-5.00) X 10*3/uL Sodium (137-145) mmol/L Potassium (3.5-5.1) mmol/L BUN (7-17) mg/dL Creatinine (0.52-1.04) mg/dL Glucose (74-99) mg/dL POC Glucose (mg/dL) 130 H 121 H (75-99) mg/dL Calcium (8.4-10.2) mg/dL Iron 36 L (50-170) ug/dL Transferrin 177.0 L (204.0-354.0) mg/dL Alkaline Phosphatase (38-126) U/L Total Protein (6.3-8.2) g/dL Albumin (3.5-5.0) g/dL 03/15/21 03/15/21 03/15/21 Range/Units 06:41 06:41 06:48 RBC 3.15 L (4.10-5.20) X 10*6/uL Hgb 7.4 L (12.0-15.0) g/dL Hct 26.3 L (37.2-46.3) % MCH 23.5 L (27.0-32.0) pg MCHC 28.1 L (32.0-37.0) g/dL RDW 22.0 H (11.5-14.5) % MPV 9.3 L (9.5-12.2) fL Neutrophils # 8.11 H (1.80-7.70) X 10*3/uL Lymphocytes # 0.45 L (0.90-5.00) X 10*3/uL Sodium 133 L (137-145) mmol/L Potassium 5.4 H (3.5-5.1) mmol/L BUN 31 H (7-17) mg/dL Creatinine 1.47 H (0.52-1.04) mg/dL Glucose 128 H (74-99) mg/dL POC Glucose (mg/dL) 137 H (75-99) mg/dL Calcium 8.0 L (8.4-10.2) mg/dL Iron (50-170) ug/dL Transferrin (204.0-354.0) mg/dL Alkaline Phosphatase 185 H (38-126) U/L Total Protein 5.8 L (6.3-8.2) g/dL Albumin 2.8 L (3.5-5.0) g/dL 03/15/21 03/15/21 Range/Units 11:58 16:51 RBC (4.10-5.20) X 10*6/uL Hgb (12.0-15.0) g/dL Hct (37.2-46.3) % MCH (27.0-32.0) pg MCHC (32.0-37.0) g/dL RDW (11.5-14.5) % MPV (9.5-12.2) fL Neutrophils # (1.80-7.70) X 10*3/uL Lymphocytes # (0.90-5.00) X 10*3/uL Sodium (137-145) mmol/L Potassium (3.5-5.1) mmol/L BUN (7-17) mg/dL Creatinine (0.52-1.04) mg/dL Glucose (74-99) mg/dL POC Glucose (mg/dL) 140 H 123 H (75-99) mg/dL Calcium (8.4-10.2) mg/dL Iron (50-170) ug/dL Transferrin (204.0-354.0) mg/dL Alkaline Phosphatase (38-126) U/L Total Protein (6.3-8.2) g/dL Albumin (3.5-5.0) g/dL Microbiology - Last 24 Hours (Table) 03/14/21 14:56 Blood Culture - Preliminary Blood No Growth after 24 hours 03/11/21 14:41 Blood Culture - Preliminary Blood No Growth after 96 hours Assessment and Plan Assessment: 1 Acute community-acquired versus aspiration pneumonia in a patient with a known history of MSSA pneumonia on bronchial wash from 02/22/2021 2 Recurrent pneumonias previously on meropenem and cefazolin in the outpatient setting. 3 History of aspiration pneumonias due to history of previous gastrectomy 4 History of gastrectomy secondary to gastric ulcers, being nourished via TPN via right subclavian Mediport. 5 Gastroesophageal reflux disease 5 Chronic pain syndrome 6 Chronic renal failure stage IV 7 Anxiety/depression/panic disorder Plan: The patient was seen and evaluated by Dr. Laura Sheth and Ricki for now Follow-up chest x-ray in the a.m. Continue TPN for nutritional support We will continue to follow I, the cosigning physician, performed a history & physical examination of the patient. Lungs sounds with bilateral scattered rhonchi. Maintaining good O2 saturations in the 90s on room air. I discussed the assessment and plan of care with my nurse practitioner, Leyla Grace. I attest to the above note as dictated by her.
[2021-03-15 20:03] LABS: Glucose,Whole Blood 111 mg/dL (75-99)
[2021-03-15] MEDS: MELATONIN 5 MG TABLET PO SCH (20:46)
[2021-03-15] MEDS: MIRTAZAPINE 45 MG TABLET PO SCH (20:48)
[2021-03-15] MEDS: buPROPion XL 150 MG TAB.ER.24H PO SCH (20:50)
[2021-03-16] MEDS: BUTALB/APAP/CAFF 50-325-40MG TAB PO PRN ×2 (00:43→09:50)
[2021-03-16] MEDS: PIPERACILLIN-TAZOBACTAM 3.375 GM in SODIUM CHLORIDE 0.9% 100 ML IVPB SCH ×4 (00:44→23:41)
[2021-03-16 03:28] LABS: Glucose,Whole Blood 141 mg/dL (75-99)
--- NOTE | 2021-03-16 03:32 | PN ---
PROGRESS NOTE DATE OF SERVICE: 03/15/2021 REASON FOR FOLLOW UP: 1. Candidemia. 2. Pneumonia. INTERVAL HISTORY: The patient is afebrile. The patient is currently breathing comfortably on room air. The patient denies having any chest pain. No worsening cough or sputum production. No abdominal pain, no diarrhea. PHYSICAL EXAMINATION: Blood pressure is 121/72 with a pulse of 95, temperature 98.2. She is 98% on room air. General description is an elderly female lying in bed in no distress. Respiratory system: Unlabored breathing, decreased intensity of breath sounds. No wheeze. Heart S1, S2. Regular rate and rhythm. Abdomen soft, no tenderness. LABS: Hemoglobin 7.4, white count 9.47, creatinine 1.47. Blood culture repeat so far pending. DIAGNOSTIC IMPRESSION AND PLAN: 1. Patient with positive blood culture with yeast, high clinical suspicion related to the port. Patient will benefit from ( ) blood cultures repeat remains to be positive. The patient is currently covered with ( ), to continue. 2. Patient with right-sided pneumonia question of aspiration. Clinically not behaving as a COVID and she will be taken out of COVID isolation area. Continue supportive care. MMODL / IJN: [id number] /
[2021-03-16] MEDS: HYDROcodone/APAP 10-325MG 1 EACH TAB PO PRN ×3 (05:19→21:56)
[2021-03-16] MEDS: LEVOTHYROXINE 88 MCG TAB PO SCH (06:14)
[2021-03-16] MEDS: INSULIN ASPART (NovoLOG) 100 UNIT/ML VIAL SQ SCH ×4 (07:34→21:53)
[2021-03-16] MEDS: ALBUTEROL NEBULIZED 2.5 MG/3 ML INHALATION SCH ×5 (07:48→20:44)
[2021-03-16] MEDS: LORATADINE 10 MG TAB PO SCH (07:59)
[2021-03-16] MEDS: PANTOPRAZOLE 40 MG TABLET PO SCH ×2 (07:59→18:04)
[2021-03-16] MEDS: THIAMINE 100 MG TAB PO SCH (07:59)
[2021-03-16] MEDS: hydrOXYzine pamoate 25 MG CAP PO SCH ×3 (07:59→21:53)
[2021-03-16] MEDS: FOLIC ACID 1 MG TAB PO SCH (07:59)
[2021-03-16] MEDS: busPIRone HCl 10 MG TAB PO SCH ×2 (07:59→21:55)
[2021-03-16] MEDS: guaiFENesin-DM 600/30MG 1 EACH TAB.ER.12H PO SCH ×2 (07:59→21:56)
[2021-03-16] MEDS: FUROSEMIDE 20 MG TAB PO SCH (08:00)
[2021-03-16] MEDS: buPROPion XL 300 MG TAB.ER.24H PO SCH (08:01)
--- NOTE | 2021-03-16 08:13 | XR ---
EXAMINATION TYPE: XR chest 1V portable DATE OF EXAM: 03/16/2021 CLINICAL HISTORY: Difficulty breathing and cough progress study. TECHNIQUE: Single AP portable upright view of the chest is obtained. COMPARISON: Chest x-ray from [address] January 28, 2021 FINDINGS: Stable right internal jugular central venous catheter. Stable bilateral bilateral midlung and left basilar opacities favoring predominantly parenchymal scarring though there is likely a compo nent of acute infiltrate in the left midlung remaining present. Cardiac silhouette size stable and wi thin normal limits. Osseous structures are demineralized. IMPRESSION: Persistent left midlung acute infiltrate on background scattered bilateral chronic parenc hymal scarring. No significant change from most recent x-ray.
[2021-03-16 08:57] LABS: ALT 9 U/L (4-34); AST 36 U/L (14-36); African American GFR (CKD) 42 (>60 ml/min/1.73 sqM); Albumin 2.8 g/dL (3.5-5.0); Alkaline Phosphatase 163 U/L (38-126); Anion Gap 7 mmol/L; Blood Urea Nitrogen 40 mg/dL (7-17); Calcium 8.1 mg/dL (8.4-10.2); Carbon Dioxide 27 mmol/L (22-30); Chloride 97 mmol/L (98-107); Globulin 2.7 g/dL; Glucose 156 mg/dL (74-99); Non-African American GFR(CKD) 36 (>60 ml/min/1.73 sqM); Phosphorus 2.8 mg/dL (2.5-4.5); Potassium 4.1 mmol/L (3.5-5.1); Sodium 131 mmol/L (137-145); Total Bilirubin 0.3 mg/dL (0.2-1.3); Total Protein 5.5 g/dL (6.3-8.2)
[2021-03-16 11:52] LABS: Glucose,Whole Blood 141 mg/dL (75-99)
[2021-03-16] MEDS ORDERED: LIDOCAINE 1% INJ 10MG/ML (20 ML MDV) ONE (13:01)
--- NOTE | 2021-03-16 13:35 | P.GSCN ---
History of Present Illness Consult date: 03/16/21 Reason for Consult: bacteremia, removal of tunneled catheter History of present illness: 75 year old female with history of right sided tunneled PICC for TPN due to chronic gastric ulcers, pain is currently at the hospital for pneumonia and + blood cultures which grew lesly. Per ID the likely source is the PICC and would like it removed and cultured. She denies any fevers, chills at this moment. She complains of a cough and issues with deep breathing. 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 History of Any Multi-Drug Resistant Organisms: None Reported Past Surgical History: Back Surgery, Bowel Resection, Hysterectomy, Joint Replacement Additional Past Surgical History / Comment(s): LOWER BACK SURGERY lamenectomy/discetomy then had a revison of that sx. 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, nasal sx d/t broken nose, colonoscopy/egd, PAIN CLINIC PROCEDURES, PORT A CATH INSERTION, LT ADEOLA, Past Anesthesia/Blood Transfusion Reactions: No Reported Reaction Additional Past Anesthesia/Blood Transfusion Reaction / Comm: PT RECIEVED BLOOD TRANSFUSIONS AFTER STOMACH SURGERY Past Psychological History: Anxiety, Depression, Panic Disorder Smoking Status: Never smoker Past Alcohol Use History: None Reported Past Drug Use History: None Reported - Past Family History Father Family Medical History: Cancer, Coronary Artery Disease (CAD) Additional Family Medical History / Comment(s): FATHER HAD BLADDER AND KIDNEY CANCER. FATHER HAD TB WHEN HE WAS A CHILD .FATHER AT AGE 87. Mother Family Medical History: Cancer Additional Family Medical History / Comment(s): MOTHER AT AGE 58 OF OVARIAN CANCER. Medications and Allergies Home Medications Medication Instructions Recorded Confirmed Type Ferrous Sulfate [Iron (65 MG 325 mg PO DAILY 11/06/15 03/11/21 History Elemental)] Levothyroxine Sodium [Synthroid] 88 mcg PO DAILY 06/07/19 03/11/21 History calcitrioL [Calcitriol] 1 mcg PO MOWEFR 06/07/19 03/11/21 History busPIRone HCL [Buspar] 30 mg PO BID 04/14/20 03/11/21 History Potassium Chloride ER [K-Dur 10] 30 meq PO DAILY@1200 04/18/20 03/11/21 History hydrOXYzine pamoate [hydrOXYzine 25 mg PO TID 04/18/20 03/11/21 History PAMOATE] Pantoprazole Sodium [Protonix] 40 mg PO BID 30 Days #60 tablet. 04/27/20 03/11/21 Rx Butalb/APAP/Caff 50-325-40Mg 1 tab PO BID PRN 06/30/20 03/11/21 History [Fioricet 50-325-40] buPROPion XL [Wellbutrin XL] 150 mg PO HS 11/04/20 03/11/21 History Furosemide [Lasix] 20 mg PO DAILY #6 tab 12/13/20 03/11/21 Rx HYDROcodone/APAP 10-325MG [Rugby 1 tab PO BID PRN 12/13/20 03/11/21 History 10-325] fentaNYL 75MCG/HR PATCH [Duragesic 1 patch TRANSDERM Q72H 3 Days #3 12/13/20 03/11/21 Rx 75MCG/HR] patch Tpn 1 each IV DAILY 02/20/21 03/11/21 History buPROPion XL [Wellbutrin XL] 300 mg PO QAM 02/20/21 03/11/21 History Folic Acid 1 mg PO DAILY 03/11/21 03/11/21 History Loratadine [Claritin] 10 mg PO DAILY 03/11/21 03/11/21 History Thiamine HCl [Vitamin B-1] 100 mg PO DAILY 03/11/21 03/11/21 History ceFAZolin [Kefzol] 1,000 mg IVPB Q12H 03/11/21 03/11/21 History Allergies Allergy/AdvReac Type Severity Reaction Status Date / Time denosumab [From Prolia] Allergy SEVERE Verified 03/11/21 17:14 CALCIUM LOSS DUST Allergy Itching Uncoded 03/11/21 17:14 MOLDS Allergy Itching Uncoded 02/20/21 14:59 Surgical - Exam Vital Signs Temp Pulse Resp BP Pulse Ox 98.5 F 112 H 16 120/89 93 L 03/11/21 13:38 03/11/21 13:38 03/11/21 13:38 03/11/21 13:38 03/11/21 13:38 - General well developed, no well nourished, no distress - Eyes PERRL, normal ocular movement - ENT normal pinna - Neck right sided tunneled PICC intact without any erythema. no masses - Respiratory right: dullness - Cardiovascular Rhythm: regular - Abdomen Abdomen: soft, non tender - Integumentary no rash, no growths - Neurologic normal coordination - Psychiatric oriented to time, oriented to person, oriented to place, speech is normal Results - Labs 03/15/21 06:41 03/16/21 08:21 Abnormal Lab Results - Last 24 Hours (Table) 03/15/21 03/15/21 03/16/21 Range/Units 16:51 20:02 03:25 Sodium (137-145) mmol/L Chloride (98-107) mmol/L BUN (7-17) mg/dL Creatinine (0.52-1.04) mg/dL Glucose (74-99) mg/dL POC Glucose (mg/dL) 123 H 111 H 141 H (75-99) mg/dL Calcium (8.4-10.2) mg/dL Alkaline Phosphatase (38-126) U/L Total Protein (6.3-8.2) g/dL Albumin (3.5-5.0) g/dL 03/16/21 03/16/21 Range/Units 08:21 11:49 Sodium 131 L (137-145) mmol/L Chloride 97 L (98-107) mmol/L BUN 40 H (7-17) mg/dL Creatinine 1.44 H (0.52-1.04) mg/dL Glucose 156 H (74-99) mg/dL POC Glucose (mg/dL) 141 H (75-99) mg/dL Calcium 8.1 L (8.4-10.2) mg/dL Alkaline Phosphatase 163 H (38-126) U/L Total Protein 5.5 L (6.3-8.2) g/dL Albumin 2.8 L (3.5-5.0) g/dL Microbiology - Last 24 Hours (Table) 03/11/21 14:25 Blood Culture Gram Stain - Final Blood Blood Culture - Final Lesly parapsilosis 03/14/21 14:56 Blood Culture Gram Stain - Preliminary Blood 03/14/21 14:56 Blood Culture - Final Blood 03/11/21 14:41 Blood Culture - Preliminary Blood No Growth after 96 hours Diabetes panel 03/16/21 Range/Units 08:21 Sodium 131 L (137-145) mmol/L Potassium 4.1 (3.5-5.1) mmol/L Chloride 97 L (98-107) mmol/L Carbon Dioxide 27 (22-30) mmol/L BUN 40 H (7-17) mg/dL Creatinine 1.44 H (0.52-1.04) mg/dL Glucose 156 H (74-99) mg/dL Calcium 8.1 L (8.4-10.2) mg/dL AST 36 (14-36) U/L ALT 9 (4-34) U/L Alkaline Phosphatase 163 H (38-126) U/L Total Protein 5.5 L (6.3-8.2) g/dL Albumin 2.8 L (3.5-5.0) g/dL Calcium panel 03/16/21 Range/Units 08:21 Calcium 8.1 L (8.4-10.2) mg/dL Phosphorus 2.8 (2.5-4.5) mg/dL Albumin 2.8 L (3.5-5.0) g/dL Pituitary panel 03/16/21 Range/Units 08:21 Sodium 131 L (137-145) mmol/L Potassium 4.1 (3.5-5.1) mmol/L Chloride 97 L (98-107) mmol/L Carbon Dioxide 27 (22-30) mmol/L BUN 40 H (7-17) mg/dL Creatinine 1.44 H (0.52-1.04) mg/dL Glucose 156 H (74-99) mg/dL Calcium 8.1 L (8.4-10.2) mg/dL Adrenal panel 03/16/21 Range/Units 08:21 Sodium 131 L (137-145) mmol/L Potassium 4.1 (3.5-5.1) mmol/L Chloride 97 L (98-107) mmol/L Carbon Dioxide 27 (22-30) mmol/L BUN 40 H (7-17) mg/dL Creatinine 1.44 H (0.52-1.04) mg/dL Glucose 156 H (74-99) mg/dL Calcium 8.1 L (8.4-10.2) mg/dL Total Bilirubin 0.3 (0.2-1.3) mg/dL AST 36 (14-36) U/L ALT 9 (4-34) U/L Alkaline Phosphatase 163 H (38-126) U/L Total Protein 5.5 L (6.3-8.2) g/dL Albumin 2.8 L (3.5-5.0) g/dL Assessment and Plan Assessment: 1. Bacteremia 2. Pneumonia 3. Altered mental status Plan: After verbal consent was obtained and all risks, benefits and complications were described the right chest and neck was prepped and draped in usual sterile fashion. Local anesthetic was then infused overlying the cuff of the catheter and dissection was carried around the cuff in a circumferential manner and catheter was removed. The tip was sent for culture. Pressure was held for hemostasis and dressings placed. She tolerated the procedure well.
[2021-03-16] MEDS ORDERED: HYDROcodone/APAP 5-325MG 1 EACH TAB PO STA (16:06)
[2021-03-16] MEDS: ANIDULAFUNGIN 100 MG in SODIUM CHLORIDE 0.9% 100 ML IVPB SCH (16:19)
[2021-03-16 16:31] LABS: Glucose,Whole Blood 101 mg/dL (75-99)
--- NOTE | 2021-03-16 17:46 | P.PN ---
Subjective Progress Note Date: 03/16/21 Principal diagnosis: Dyspnea On 03/16/2021 patient seen in follow-up on medical surgical floor. She is resting in bed, denies any worsening dyspnea, room air pulse ox is 97%, o ccasional cough, which is nonproductive, lung sounds are positive for a few rhonchi, no significant congestion, no phlegm production, no chest discomfort. She remains on Eraxis and Zosyn. Her blood culture from 03/11/2021 showed Lesly Parapsilosis. This was thought to be possibly related to MediPort infection, which was removed today by vascular surgery. Follow-up blood culture from 03/16/2021 shows budding yeast. Clinically does not appear to be in any acute distress. Today's labs have been reviewed, there was a BMP done, sodium is 131, potassium is 4.1, chloride is 97, BUN is 40 creatinine is 1.44. Patient remains nothing by mouth, continues on TPN Objective - Vital Signs Vital signs: Vital Signs Temp 98.5 F 03/16/21 15:12 Pulse 88 03/16/21 17:13 Resp 18 03/16/21 15:12 BP 129/52 03/16/21 15:12 Pulse Ox 97 03/16/21 15:12 Intake & Output 03/15/21 03/16/21 03/16/21 18:59 06:59 18:59 Intake Total 940 Balance 940 Weight 42.184 kg Intake: Intake, IV Titration 400 Amount Anidulafungin 200 mg In 200 Sodium Chloride 0.9% 200 ml @ 84 mls/hr IVPB ONCE ONE Rx#:[id number] Piperacillin-Tazobactam 3 200 .375 gm In Sodium Chloride 0.9% 100 ml @ 25 mls/hr IVPB Q8HR [facility] Rx# :[id number] Oral 540 Other: Voiding Method Toilet Toilet Toilet # Voids 2 1 - Exam GENERAL EXAM: Alert, pleasant, frail-looking 75-year-old white female on room air with pulse ox of 97% comfortable in no apparent distress. HEAD: Normocephalic/atraumatic. EYES: Normal reaction of pupils, equal size. Conjunctiva pink, sclera white. NOSE: Clear with pink turbinates. THROAT: No erythema or exudates. NECK: No masses, no JVD, no thyroid enlargement, no adenopathy. CHEST: No chest wall deformity. Symmetrical expansion. Right upper chest MediPort removal sites covered with a dressing LUNGS: Equal air entry with minimal crackles at the bases CVS: Regular rate and rhythm, normal S1 and S2, no gallops, no murmurs, no rubs ABDOMEN: Soft, nontender. No hepatosplenomegaly, normal bowel sounds, no guarding or rigidity. EXTREMITIES: No clubbing, no edema, no cyanosis, 2+ pulses and upper and lower extremities. MUSCULOSKELETAL: Muscle strength and tone normal. SPINE: No scoliosis or deformity SKIN: No rashes CENTRAL NERVOUS SYSTEM: Alert and oriented -3. No focal deficits, tone is normal in all 4 extremities. PSYCHIATRIC: Alert and oriented -3. Appropriate affect. Intact judgment and insight. - Labs CBC & Chem 7: 03/15/21 06:41 03/16/21 08:21 Labs: Abnormal Lab Results - Last 24 Hours (Table) 03/15/21 03/16/21 03/16/21 Range/Units 20:02 03:25 08:21 Sodium 131 L (137-145) mmol/L Chloride 97 L (98-107) mmol/L BUN 40 H (7-17) mg/dL Creatinine 1.44 H (0.52-1.04) mg/dL Glucose 156 H (74-99) mg/dL POC Glucose (mg/dL) 111 H 141 H (75-99) mg/dL Calcium 8.1 L (8.4-10.2) mg/dL Alkaline Phosphatase 163 H (38-126) U/L Total Protein 5.5 L (6.3-8.2) g/dL Albumin 2.8 L (3.5-5.0) g/dL 03/16/21 03/16/21 Range/Units 11:49 16:29 Sodium (137-145) mmol/L Chloride (98-107) mmol/L BUN (7-17) mg/dL Creatinine (0.52-1.04) mg/dL Glucose (74-99) mg/dL POC Glucose (mg/dL) 141 H 101 H (75-99) mg/dL Calcium (8.4-10.2) mg/dL Alkaline Phosphatase (38-126) U/L Total Protein (6.3-8.2) g/dL Albumin (3.5-5.0) g/dL Microbiology - Last 24 Hours (Table) 03/11/21 14:41 Blood Culture - Preliminary Blood No Growth after 120 hours 03/11/21 14:25 Blood Culture Gram Stain - Final Blood Blood Culture - Final Lesly parapsilosis 03/14/21 14:56 Blood Culture Gram Stain - Preliminary Blood 03/14/21 14:56 Blood Culture - Final Blood Assessment and Plan Plan: Assessment: #1. Acute hypoxic respiratory failure related to possibility of aspiration pne umonia #2. Known history of MSSA pneumonia as seen on BAL cultures from 02/22/2021 #3. Bacteremia related to Lesly parapsilosis possible source related to MediPort which was removed today on 03/16/2021 #4. History of gastric ulcers status post previous gastrectomy #5. Chronic dysphagia with history of multiple episodes of aspiration pneumonia #6. Chronic TPN infusion for recurrent aspiration pneumonia #7. History of asthmatic bronchitis #8. Chronic pain syndrome #9. Chronic renal failure, stage IV #10. Anxiety and depression Plan: Continue current medical treatment Antibiotics per ID service recommendations Right subclavian MediPort has been removed per vascular surgery TPN for nutrition, patient may need a PICC line however follow-up blood cultures still positive No worsening dyspnea or hypoxia We'll continue to follow her clinical course Overall prognosis is poor and guarded I performed a history & physical examination of the patient and discussed their management with my nurse practitioner, Brittany Garcia. I reviewed the nurse practitioner's note and agree with the documented findings and plan of care. Lung sounds are positive for dim breath sounds throughout the lung calixto. The findings and the impression was discussed with the patient. I attest to the documentation by the nurse practitioner. Time with Patient: Less than 30
[2021-03-16] MEDS: MELATONIN 5 MG TABLET PO SCH (21:53)
[2021-03-16] MEDS: MIRTAZAPINE 45 MG TABLET PO SCH (21:56)
--- NOTE | 2021-03-16 21:57 | P.PN ---
Subjective Louise Sutton, is a 75 year old female who presented to [facility] emergency room with a chief complaint of mental status changes and hallucinations, patient has a known history of chronic pain syndrome maintained on narcotics she stated that she was maintained on fentanyl patch and [place]. Presents with altered mental status and respiratory symptoms found to have left midlung aspiration pneumonia. Patient is a known case of aspiration pneumonia and she's getting chronic TPN. Also she has chronic kidney disease. Today she is lying in bed. Mild pain asking for pain medication 1 time dose of narcotics provided. She is hemodynamically stable and she is on room air currently. Hemoglobin slightly low at 7.4, creatinine elevated at baseline of 1.4, baseline is 1.3- 1.6. Chest x-ray showing left midlung infiltrated with no change between today and the previous chest x-ray. She has positive blood culture [facility] obtained today who removed the port. She is currently covered with Zosyn and eraxis .also she is on home pain medication with [place] 10 and fentanyl patch Objective - Vital Signs Vital signs: Vital Signs Temp 98 F 03/16/21 07:31 Pulse 86 03/16/21 11:35 Resp 18 03/16/21 07:31 BP 107/59 03/16/21 07:31 Pulse Ox 97 03/16/21 07:31 Intake & Output 03/15/21 03/16/21 03/16/21 18:59 06:59 18:59 Intake Total 940 Balance 940 Weight 42.184 kg Intake: Intake, IV Titration 400 Amount Anidulafungin 200 mg In 200 Sodium Chloride 0.9% 200 ml @ 84 mls/hr IVPB ONCE ONE Rx#:[id number] Piperacillin-Tazobactam 3 200 .375 gm In Sodium Chloride 0.9% 100 ml @ 25 mls/hr IVPB Q8HR [facility] Rx# :[id number] Oral 540 Other: Voiding Method Toilet Toilet Toilet # Voids 2 1 - Exam -GENERAL: The patient is alert and oriented x2-3, not in any acute distress. Thin built HEENT: Pupils are round and equally reacting to light. EOMI. No scleral icterus. No conjunctival pallor. Normocephalic, atraumatic. No pharyngeal erythema. No thyromegaly. CARDIOVASCULAR: S1 and S2 present. No murmurs, rubs, or gallops. PULMONARY: Chest is clear to auscultation, no wheezing or crackles. ABDOMEN: Soft, nontender, nondistended, normoactive bowel sounds. No palpable organomegaly. MUSCULOSKELETAL: No joint swelling or deformity. EXTREMITIES: No cyanosis, clubbing, or pedal edema. NEUROLOGICAL: Gross neurological examination did not reveal any focal deficits. SKIN: No rashes. no petechiae. - Labs CBC & Chem 7: 03/15/21 06:41 03/16/21 08:21 Labs: Abnormal Lab Results - Last 24 Hours (Table) 03/15/21 03/15/21 03/16/21 Range/Units 16:51 20:02 03:25 Sodium (137-145) mmol/L Chloride (98-107) mmol/L BUN (7-17) mg/dL Creatinine (0.52-1.04) mg/dL Glucose (74-99) mg/dL POC Glucose (mg/dL) 123 H 111 H 141 H (75-99) mg/dL Calcium (8.4-10.2) mg/dL Alkaline Phosphatase (38-126) U/L Total Protein (6.3-8.2) g/dL Albumin (3.5-5.0) g/dL 03/16/21 03/16/21 Range/Units 08:21 11:49 Sodium 131 L (137-145) mmol/L Chloride 97 L (98-107) mmol/L BUN 40 H (7-17) mg/dL Creatinine 1.44 H (0.52-1.04) mg/dL Glucose 156 H (74-99) mg/dL POC Glucose (mg/dL) 141 H (75-99) mg/dL Calcium 8.1 L (8.4-10.2) mg/dL Alkaline Phosphatase 163 H (38-126) U/L Total Protein 5.5 L (6.3-8.2) g/dL Albumin 2.8 L (3.5-5.0) g/dL Microbiology - Last 24 Hours (Table) 03/11/21 14:25 Blood Culture Gram Stain - Final Blood Blood Culture - Final Lesly parapsilosis 03/14/21 14:56 Blood Culture Gram Stain - Preliminary Blood 03/14/21 14:56 Blood Culture - Final Blood 03/11/21 14:41 Blood Culture - Preliminary Blood No Growth after 96 hours Assessment and Plan Assessment: Left midlung aspiration pneumonia Metabolic encephalopathy secondary to above Lesly bacteremia secondary to MediPort which is removed Mild to moderate calorie-protein malnutrition Chronic kidney disease stage III Chronic pain syndrome Plan: This is a pleasant 75 years old female who presents with respiration pneumonia Continue with Zosyn and Eraxis Continue with pain management as per home medication Patient will need to replace PICC line Once blood culture comes back negative Labs and medication were reviewed.. Continue same treatment. Continue with symptomatic treatment. Resume home medication. Monitor lytes and vitals. DVT and GI prophylaxis. Further recommendations as per clinical course of the patient DVT prophylaxis: Subcutaneous heparin GI Prophylaxis: Ppi Prognosis is guarded
[2021-03-16] MEDS: buPROPion XL 150 MG TAB.ER.24H PO SCH (23:38)
[2021-03-17 00:28] LABS: Glucose,Whole Blood 126 mg/dL (75-99)
--- NOTE | 2021-03-17 02:25 | PN ---
PROGRESS NOTE DATE OF SERVICE: 03/16/2021 REASON FOR FOLLOW UP: Candidemia secondary to central line infection. INTERVAL HISTORY: The patient is afebrile. The patient is breathing comfortably. Denies having any chest pain, shortness of breath or cough. No vomiting. No abdominal pain or diarrhea. PHYSICAL EXAMINATION: Blood pressure 146/77, pulse of 105, temperature 98.6. She is 95% on room air. General description is an elderly female lying in bed in no distress. Respiratory system: Unlabored breathing, decreased breath sounds in the bases. No wheeze. Heart S1, S2. Regular rate and rhythm. Abdomen soft, no tenderness. LABS: BUN of 40, creatinine 1.44. Liver enzymes are normal. Repeat blood culture came back positive with Lesly. DIAGNOSTIC IMPRESSION AND PLAN: Patient with candidemia. Source is the central line which she has been using for the TPN. Discussed with vascular surgery for removal of the same, ( ) blood culture. The patient is covered with Eraxis that will be continued, daily blood culture to document clearance of candidemia. Once she clears candidemia she may be able to get another central line. For now continue with Eraxis and continue supportive care. MMODL / IJN: [id number] /
[2021-03-17] MEDS: [UNRECOGNIZED DRUG - REMARK] IV SCH ×18 (04:46→22:19)
[2021-03-17 06:05] LABS: Glucose,Whole Blood 109 mg/dL (75-99)
[2021-03-17 06:36] LABS: ALT 15 U/L (4-34); AST 53 U/L (14-36); African American GFR (CKD) 39 (>60 ml/min/1.73 sqM); Albumin 2.9 g/dL (3.5-5.0); Alkaline Phosphatase 221 U/L (38-126); Anion Gap 8 mmol/L; Blood Urea Nitrogen 31 mg/dL (7-17); Calcium 8.6 mg/dL (8.4-10.2); Carbon Dioxide 26 mmol/L (22-30); Chloride 97 mmol/L (98-107); Globulin 2.9 g/dL; Glucose 94 mg/dL (74-99); Non-African American GFR(CKD) 34 (>60 ml/min/1.73 sqM); Phosphorus 2.9 mg/dL (2.5-4.5); Potassium 4.6 mmol/L (3.5-5.1); Sodium 131 mmol/L (137-145); Total Bilirubin 0.3 mg/dL (0.2-1.3); Total Protein 5.8 g/dL (6.3-8.2)
[2021-03-17 06:44] LABS: Glucose,Whole Blood 102 mg/dL (75-99)
[2021-03-17] MEDS: INSULIN ASPART (NovoLOG) 100 UNIT/ML VIAL SQ SCH ×4 (07:00→21:21)
[2021-03-17] MEDS: ALBUTEROL NEBULIZED 2.5 MG/3 ML INHALATION SCH ×4 (07:39→19:30)
[2021-03-17] MEDS: hydrOXYzine pamoate 25 MG CAP PO SCH ×3 (07:50→22:17)
[2021-03-17] MEDS: PANTOPRAZOLE 40 MG TABLET PO SCH ×2 (07:50→18:20)
[2021-03-17] MEDS: busPIRone HCl 10 MG TAB PO SCH ×2 (07:52→22:20)
[2021-03-17] MEDS: buPROPion XL 300 MG TAB.ER.24H PO SCH (07:52)
[2021-03-17] MEDS: FUROSEMIDE 20 MG TAB PO SCH (07:53)
[2021-03-17] MEDS: FERROUS SULFATE 325 MG TAB PO SCH (07:53)
[2021-03-17] MEDS: FOLIC ACID 1 MG TAB PO SCH (07:53)
[2021-03-17] MEDS: THIAMINE 100 MG TAB PO SCH (07:53)
[2021-03-17] MEDS: LORATADINE 10 MG TAB PO SCH (07:54)
[2021-03-17] MEDS: HYDROcodone/APAP 10-325MG 1 EACH TAB PO PRN ×2 (07:54→16:05)
[2021-03-17] MEDS: LEVOTHYROXINE 88 MCG TAB PO SCH (09:05)
[2021-03-17] MEDS: guaiFENesin-DM 600/30MG 1 EACH TAB.ER.12H PO SCH ×2 (09:06→22:17)
[2021-03-17] MEDS: PIPERACILLIN-TAZOBACTAM 3.375 GM in SODIUM CHLORIDE 0.9% 100 ML IVPB SCH ×2 (09:06→18:19)
[2021-03-17] MEDS: BUTALB/APAP/CAFF 50-325-40MG TAB PO PRN ×2 (09:17→22:27)
[2021-03-17 11:20] LABS: Glucose,Whole Blood 107 mg/dL (75-99)
[2021-03-17 16:49] LABS: Glucose,Whole Blood 104 mg/dL (75-99)
--- NOTE | 2021-03-17 17:28 | P.PN ---
Subjective Progress Note Date: 03/17/21 Principal diagnosis: Shortness of breath/COPD exacerbation. On 03/16/2021 patient seen in follow-up on medical surgical floor. She is resting in bed, denies any worsening dyspnea, room air pulse ox is 97%, occasional cough, which is nonproductive, lung sounds are positive for a few rhonchi, no significant congestion, no phlegm production, no chest discomfort. She remains on Eraxis and Zosyn. Her blood culture from 03/11/2021 showed Lesly Parapsilosis. This was thought to be possibly related to MediPort infection, which was removed today by vascular surgery. Follow-up blood culture from 03/16/2021 shows budding yeast. Clinically does not appear to be in any acute distress. Today's labs have been reviewed, there was a BMP done, sodium is 131, potassium is 4.1, chloride is 97, BUN is 40 creatinine is 1.44. Patient remains nothing by mouth, continues on TPN Progress note dated 03/17/2021. The patient is seen in room 450. She's resting comfortably. She's on a couple liters of oxygen. She complains of shortness of breath, chest pain and discomfort. She's coughing up a small amount of phlegm. She denies any fever or chills. She's not coughing up any blood. She is chronically on TPN. Sodium 131, potassium 4.6, chlorides 97, CO2 26, anion gap 8, BUN 31, creatinine 1.53. AST is 53. Alkaline phosphatase is 221. Albumin is 2.9. Chest x-ray fr om March 16, is reviewed. Blood cultures were positive for Lesly parapsilosis. Objective - Vital Signs Vital signs: Vital Signs Temp 97.8 F 03/17/21 14:00 Pulse 75 03/17/21 14:00 Resp 16 03/17/21 14:00 BP 120/71 03/17/21 14:00 Pulse Ox 98 03/17/21 14:00 Intake & Output 03/16/21 03/17/21 03/17/21 18:59 06:59 18:59 Intake Total 660 Balance 660 Intake: Intake, IV Titration 660 Amount Anidulafungin 100 mg In 100 Sodium Chloride 0.9% 100 ml @ 84 mls/hr IVPB DAILY @1600 [facility] Rx#:[id number] Mvi, Adult No.4 with Vit 360 K 10 ml Trace (Conc-1Ml/ Dose) 1 ml Sodium Acetate 20 meq Sodium Chloride 4Meq/ml Vial 12 meq Sodium Phosphate 9 mmol Magnesium Sulfate gm 1 gm Calcium Gluconate 1 gm In Amino Acids 5 %/ Dextrose 20 % 1,000 ml @ 60 mls/hr IV .BY DURATION CHAD Rx#:[id number] Piperacillin-Tazobactam 3 200 .375 gm In Sodium Chloride 0.9% 100 ml @ 25 mls/hr IVPB Q8HR [facility] Rx# :[id number] Oral 0 Other: Voiding Method Toilet Toilet # Voids 1 - Exam No acute distress, oriented 3. Room air saturation 98%. She is not manifesting any signs or symptoms of respiratory distress. HEENT examination is grossly unremarkable. Neck supple. Full range of motion. No adenopathy thyromegaly or neck vein distention. Cardiovascular examination reveals regular rhythm rate. S1-S2 normal. No S3 or S4. No discernible murmur noted. Heart rate 75 bpm. Lungs reveal diffuse rhonchi and crackles. Breath sounds equal bilaterally. No wheezes are noted. Breath sounds are equal bilaterally. Breath sounds are diminished throughout. Abdomen soft bowel sounds are heard. No masses or tenderness. Extremities are intact. No cyanosis clubbing or edema. Skin is without rash or lesion. Neurologic examination is brief but nonfocal. - Labs CBC & Chem 7: 03/15/21 06:41 03/17/21 05:26 Labs: Abnormal Lab Results - Last 24 Hours (Table) 03/17/21 03/17/21 03/17/21 Range/Units 00:25 05:26 06:04 Sodium 131 L (137-145) mmol/L Chloride 97 L (98-107) mmol/L BUN 31 H (7-17) mg/dL Creatinine 1.53 H (0.52-1.04) mg/dL POC Glucose (mg/dL) 126 H 109 H (75-99) mg/dL AST 53 H (14-36) U/L Alkaline Phosphatase 221 H (38-126) U/L Total Protein 5.8 L (6.3-8.2) g/dL Albumin 2.9 L (3.5-5.0) g/dL 03/17/21 03/17/2103/17/21 Range/Units 06:42 11:17 16:47 Sodium (137-145) mmol/L Chloride (98-107) mmol/L BUN (7-17) mg/dL Creatinine (0.52-1.04) mg/dL POC Glucose (mg/dL) 102 H 107 H 104 H (75-99) mg/dL AST (14-36) U/L Alkaline Phosphatase (38-126) U/L Total Protein (6.3-8.2) g/dL Albumin (3.5-5.0) g/dL Microbiology - Last 24 Hours (Table) 03/11/21 14:41 Blood Culture - Final Blood No Growth after 144 hours 03/14/21 14:56 Blood Culture Gram Stain - Final Blood Blood Culture - Final Lesly parapsilosis 03/16/21 13:45 Catheter Tip Culture - Preliminary Picc Line Assessment and Plan Assessment: #1. Acute hypoxic respiratory failure secondary to aspiration pneumonia. #2. Known history of MSSA pneumonia as seen on BAL cultures from 02/22/2021. #3. Bacteremia related to Lesly parapsilosis possible source related to MediPort which was removed today on 03/16/2021. #4. History of gastric ulcers status post previous gastrectomy. #5. Chronic dysphagia with history of multiple episodes of aspiration pneumonia. #6. Chronic TPN infusion for recurrent aspiration pneumonia. #7. History of asthmatic bronchitis. #8. Chronic pain syndrome. #9. Chronic renal failure, stage IV. #10. Anxiety and depression. Plan: Plan dated 03/17/2021. The patient continues on antibiotics as per infectious disease service. The patient's getting TPN for nutrition. The patient clinically looks reasonably well. She is very frail though. She's not requiring any supplemental oxygen. Additional recommendations and suggestions are forthcoming. We will continue to follow and make recommendations where appropriate. Prognosis is very guarded. Time with Patient: Less than 30
[2021-03-17] MEDS: ANIDULAFUNGIN 100 MG in SODIUM CHLORIDE 0.9% 100 ML IVPB SCH (18:20)
--- NOTE | 2021-03-17 18:36 | P.PN ---
Subjective Louise Sutton, is a 75 year old female who presented to [facility] emergency room with a chief complaint of mental status changes and hallucinations, patient has a known history of chronic pain syndrome maintained on narcotics she stated that she was maintained on fentanyl patch and Ama. Presents with altered mental status and respiratory symptoms found to have left midlung aspiration pneumonia. Patient is a known case of aspiration pneumonia and she's getting chronic TPN. Also she has chronic kidney disease. Today she is lying in bed. Mild pain asking for pain medication 1 time dose of narcotics provided. She is hemodynamically stable and she is on room air currently. Hemoglobin slightly low at 7.4, creatinine elevated at baseline of 1.4, baseline is 1.3- 1.6. Chest x-ray showing left midlung infiltrated with no change between today and the previous chest x-ray. She has positive blood culture for Lesly suspected secondary to MediPort, vascular surgery consult obtained today who removed the port. She is currently covered with Zosyn and eraxis .also she is on home pain medication with Ama 10 and fentanyl patch 03/17/2021 Admitted with aspiration pneumonia, her PICC line was removed for candidemia. Plan to get PICC line and TPN today This morning she was moving out of bed with assistance to the restroom, she was pleasant comfortable asking for pain medication. No respiratory distress. Patient kept nothing by mouth because of risk of aspiration. Catheter tip culture is pending. Repeat blood culture in the morning. She remains on Zosyn and eraxis Objective - Vital Signs Vital signs: Vital Signs Temp 99.1 F 03/17/21 05:52 Pulse 93 03/17/21 05:52 Resp 16 03/17/21 08:00 BP 109/64 03/17/21 05:52 Pulse Ox 96 03/17/21 05:52 Intake & Output 03/16/21 03/17/21 03/17/21 18:59 06:59 18:59 Intake Total 660 Balance 660 Intake: Intake, IV Titration 660 Amount Anidulafungin 100 mg In 100 Sodium Chloride 0.9% 100 ml @ 84 mls/hr IVPB DAILY @1600 [facility] Rx#:[id number] Mvi, Adult No.4 with Vit 360 K 10 ml Trace (Conc-1Ml/ Dose) 1 ml Sodium Acetate 20 meq Sodium Chloride 4Meq/ml Vial 12 meq Sodium Phosphate 9 mmol Magnesium Sulfate gm 1 gm Calcium Gluconate 1 gm In Amino Acids 5 %/ Dextrose 20 % 1,000 ml @ 60 mls/hr IV .BY DURATION CHAD Rx#:[id number] Piperacillin-Tazobactam 3 200 .375 gm In Sodium Chloride 0.9% 100 ml @ 25 mls/hr IVPB Q8HR [facility] Rx# :[id number] Oral 0 Other: Voiding Method Toilet Toilet # Voids 1 - Exam -GENERAL: The patient is alert and oriented x2-3, not in any acute distress. Thin built HEENT: Pupils are round and equally reacting to light. EOMI. No scleral icterus. No conjunctival pallor. Normocephalic, atraumatic. No pharyngeal erythema. No thyromegaly. CARDIOVASCULAR: S1 and S2 present. No murmurs, rubs, or gallops. PULMONARY: Chest is clear to auscultation, no wheezing or crackles. ABDOMEN: Soft, nontender, nondistended, normoactive bowel sounds. No palpable organomegaly. MUSCULOSKELETAL: No joint swelling or deformity. EXTREMITIES: No cyanosis, clubbing, or pedal edema. NEUROLOGICAL: Gross neurological examination did not reveal any focal deficits. SKIN: No rashes. no petechiae. - Labs CBC & Chem 7: 03/15/21 06:41 03/17/21 05:26 Labs: Abnormal Lab Results - Last 24 Hours (Table) 03/16/21 03/17/21 03/17/21 Range/Units 16:29 00:25 05:26 Sodium 131 L (137-145) mmol/L Chloride 97 L (98-107) mmol/L BUN 31 H (7-17) mg/dL Creatinine 1.53 H (0.52-1.04) mg/dL POC Glucose (mg/dL) 101 H 126 H (75-99) mg/dL AST 53 H (14-36) U/L Alkaline Phosphatase 221 H (38-126) U/L Total Protein 5.8 L (6.3-8.2) g/dL Albumin 2.9 L (3.5-5.0) g/dL 03/17/21 03/17/21 03/17/21 Range/Units 06:04 06:42 11:17 Sodium (137-145) mmol/L Chloride (98-107) mmol/L BUN (7-17) mg/dL Creatinine (0.52-1.04) mg/dL POC Glucose (mg/dL) 109 H 102 H 107 H (75-99) mg/dL AST (14-36) U/L Alkaline Phosphatase (38-126) U/L Total Protein (6.3-8.2) g/dL Albumin (3.5-5.0) g/dL Microbiology - Last 24 Hours (Table) 03/14/21 14:56 Blood Culture Gram Stain - Preliminary Blood Blood Culture - Preliminary Yeast species 03/16/21 13:45 Catheter Tip Culture - Preliminary Picc Line 03/11/21 14:41 Blood Culture - Preliminary Blood No Growth after 120 hours 03/11/21 14:25 Blood Culture Gram Stain - Final Blood Blood Culture - Final Lesly parapsilosis Assessment and Plan Assessment: Left midlung aspiration pneumonia Metabolic encephalopathy secondary to above Lesly bacteremia secondary to MediPort which is removed Mild to moderate calorie-protein malnutrition Chronic kidney disease stage III Chronic pain syndrome Plan: This is a pleasant 75 years old female who presents with respiration pneumonia Continue with Zosyn and Eraxis Continue with pain management as per home medication Patient will need to replace PICC line Once blood culture comes back negative Labs and medication were reviewed.. Continue same treatment. Continue with symptomatic treatment. Resume home medication. Monitor lytes and vitals. DVT and GI prophylaxis. Further recommendations as per clinical course of the fouzia stevens DVT prophylaxis: Subcutaneous heparin GI Prophylaxis: Ppi Prognosis is guarded
[2021-03-17] MEDS: MIRTAZAPINE 45 MG TABLET PO SCH (22:16)
[2021-03-17] MEDS: buPROPion XL 150 MG TAB.ER.24H PO SCH (22:17)
[2021-03-17] MEDS: MELATONIN 5 MG TABLET PO SCH (22:19)
--- NOTE | 2021-03-17 23:05 | PN ---
PROGRESS NOTE DATE OF SERVICE: 03/17/2021 REASON FOR FOLLOWUP: Candidemia. INTERVAL HISTORY: The patient is afebrile. The patient is breathing comfortably. Denies having any chest pain or shortness of breath or cough. No abdominal pain or diarrhea. PHYSICAL EXAMINATION: Blood pressure 117/68 with a pulse of 86, temperature 97.8. He is 97% on room air. General description is an elderly female lying in bed in no distress. Respiratory system: Unlabored breathing, decreased intensity of breath sounds. No wheeze. Heart S1, S2. Regular rate and rhythm. Abdomen soft, no tenderness. LABS: BUN of 31, creatinine 1.53. Blood culture with Lesly parapsilosis. DIAGNOSTIC IMPRESSION AND PLAN: Patient with candidemia secondary to the infected central line, which was discontinued yesterday. Tip has been sent for cultures. Blood culture has been repeated to document clearance of candidemia before placing a new line. Continue with Eraxis while monitoring clinical course closely. Continue supportive care. MMODL / IJN: [id number] /
[2021-03-18 00:35] LABS: Glucose,Whole Blood 133 mg/dL (75-99)
[2021-03-18] MEDS: PIPERACILLIN-TAZOBACTAM 3.375 GM in SODIUM CHLORIDE 0.9% 100 ML IVPB SCH (01:00)
[2021-03-18] MEDS: LEVOTHYROXINE 88 MCG TAB PO SCH (05:27)
[2021-03-18] MEDS: HYDROcodone/APAP 10-325MG 1 EACH TAB PO PRN ×2 (05:34→13:47)
[2021-03-18 06:27] LABS: Glucose,Whole Blood 164 mg/dL (75-99)
[2021-03-18] MEDS: PANTOPRAZOLE 40 MG TABLET PO SCH ×2 (07:28→16:20)
[2021-03-18] MEDS: FUROSEMIDE 20 MG TAB PO SCH (07:28)
[2021-03-18] MEDS: FOLIC ACID 1 MG TAB PO SCH (07:28)
[2021-03-18] MEDS: hydrOXYzine pamoate 25 MG CAP PO SCH ×3 (07:29→20:13)
[2021-03-18] MEDS: THIAMINE 100 MG TAB PO SCH (07:29)
[2021-03-18] MEDS: LORATADINE 10 MG TAB PO SCH (07:29)
[2021-03-18] MEDS: busPIRone HCl 10 MG TAB PO SCH ×2 (07:29→20:12)
[2021-03-18] MEDS: buPROPion XL 300 MG TAB.ER.24H PO SCH (07:29)
[2021-03-18] MEDS: FERROUS SULFATE 325 MG TAB PO SCH (07:29)
[2021-03-18] MEDS: guaiFENesin-DM 600/30MG 1 EACH TAB.ER.12H PO SCH ×2 (07:30→20:12)
[2021-03-18] MEDS: INSULIN ASPART (NovoLOG) 100 UNIT/ML VIAL SQ SCH ×3 (07:30→17:29)
[2021-03-18 08:28] LABS: ALT 17 U/L (4-34); AST 28 U/L (14-36); African American GFR (CKD) 33 (>60 ml/min/1.73 sqM); Albumin 2.8 g/dL (3.5-5.0); Alkaline Phosphatase 225 U/L (38-126); Anion Gap 8 mmol/L; Blood Urea Nitrogen 29 mg/dL (7-17); Calcium 8.6 mg/dL (8.4-10.2); Carbon Dioxide 26 mmol/L (22-30); Chloride 103 mmol/L (98-107); Globulin 2.9 g/dL; Glucose 116 mg/dL (74-99); Magnesium 2.2 mg/dL (1.6-2.3); Non-African American GFR(CKD) 29 (>60 ml/min/1.73 sqM); Sodium 137 mmol/L (137-145); Total Bilirubin 0.3 mg/dL (0.2-1.3); Total Protein 5.7 g/dL (6.3-8.2)
[2021-03-18] MEDS: ALBUTEROL NEBULIZED 2.5 MG/3 ML INHALATION SCH ×4 (08:52→18:44)
[2021-03-18] MEDS: BUTALB/APAP/CAFF 50-325-40MG TAB PO PRN ×2 (10:31→20:13)
[2021-03-18 10:57] LABS: HCT 27.7 % (37.2-46.3); HGB 7.8 g/dL (12.0-15.0); MCH 23.8 pg (27.0-32.0); MCHC 28.2 g/dL (32.0-37.0); MCV 84.5 fL (80.0-97.0); Mean Platelet Volume 9.7 fL (9.5-12.2); Platelet Count 289 X 10*3/uL (140-440); RBC 3.28 X 10*6/uL (4.10-5.20); RDW 22.3 % (11.5-14.5); WBC 10.25 X 10*3/uL (4.50-10.00)
[2021-03-18 11:38] LABS: Glucose,Whole Blood 103 mg/dL (75-99)
[2021-03-18] MEDS ORDERED: INSULIN ASPART (NovoLOG) 100 UNIT/ML VIAL SQ ONE (11:42)
--- NOTE | 2021-03-18 11:50 | P.PN ---
Subjective Progress Note Date: 03/18/21 Principal diagnosis: Dyspnea On 03/16/2021 patient seen in follow-up on medical surgical floor. She is resting in bed, denies any worsening dyspnea, room air pulse ox is 97%, o ccasional cough, which is nonproductive, lung sounds are positive for a few rhonchi, no significant congestion, no phlegm production, no chest discomfort. She remains on Eraxis and Zosyn. Her blood culture from 03/11/2021 showed Lesly Parapsilosis. This was thought to be possibly related to MediPort infection, which was removed today by vascular surgery. Follow-up blood culture from 03/16/2021 shows budding yeast. Clinically does not appear to be in any acute distress. Today's labs have been reviewed, there was a BMP done, sodium is 131, potassium is 4.1, chloride is 97, BUN is 40 creatinine is 1.44. Patient has not been able to receive TPN related to lack of central venous access. Objective - Vital Signs Vital signs: Vital Signs Temp 97.4 F L 03/18/21 07:57 Pulse 82 03/18/21 07:57 Resp 16 03/18/21 07:57 BP 111/68 03/18/21 07:57 Pulse Ox 96 03/18/21 07:57 Intake & Output 03/17/21 03/18/21 03/18/21 18:59 06:59 18:59 Intake Total 800 Output Total 400 Balance 400 Intake: Oral 800 Output: Urine 400 Other: Voiding Method Toilet # Voids 2 - Exam GENERAL EXAM: Alert, pleasant, frail-looking 75-year-old white female on room air with pulse ox of 97% comfortable in no apparent distress. HEAD: Normocephalic/atraumatic. EYES: Normal reaction of pupils, equal size. Conjunctiva pink, sclera white. NOSE: Clear with pink turbinates. THROAT: No erythema or exudates. NECK: No masses, no JVD, no thyroid enlargement, no adenopathy. CHEST: No chest wall deformity. Symmetrical expansion. Right upper chest MediPort removal sites covered with a dressing LUNGS: Equal air entry with minimal crackles at the bases CVS: Regular rate and rhythm, normal S1 and S2, no gallops, no murmurs, no rubs ABDOMEN: Soft, nontender. No hepatosplenomegaly, normal bowel sounds, no guarding or rigidity. EXTREMITIES: No clubbing, no edema, no cyanosis, 2+ pulses and upper and lower extremities. MUSCULOSKELETAL: Muscle strength and tone normal. SPINE: No scoliosis or deformity SKIN: No rashes CENTRAL NERVOUS SYSTEM: Alert and oriented -3. No focal deficits, tone is normal in all 4 extremities. PSYCHIATRIC: Alert and oriented -3. Appropriate affect. Intact judgment and insight. - Labs CBC & Chem 7: 03/18/21 07:30 03/18/21 07:30 Labs: Abnormal Lab Results - Last 24 Hours (Table) 03/17/21 03/18/21 03/18/21 Range/Units 16:47 00:34 06:25 WBC (4.50-10.00) X 10*3/uL RBC (4.10-5.20) X 10*6/uL Hgb (12.0-15.0) g/dL Hct (37.2-46.3) % MCH (27.0-32.0) pg MCHC (32.0-37.0) g/dL RDW (11.5-14.5) % BUN (7-17) mg/dL Creatinine (0.52-1.04) mg/dL Glucose (74-99) mg/dL POC Glucose (mg/dL) 104 H 133 H 164 H (75-99) mg/dL Alkaline Phosphatase (38-126) U/L Total Protein (6.3-8.2) g/dL Albumin (3.5-5.0) g/dL 03/18/21 03/18/21 03/18/21 Range/Units 07:30 07:30 11:37 WBC 10.25 H (4.50-10.00) X 10*3/uL RBC 3.28 L (4.10-5.20) X 10*6/uL Hgb 7.8 L (12.0-15.0) g/dL Hct 27.7 L (37.2-46.3) % MCH 23.8 L (27.0-32.0) pg MCHC 28.2 L (32.0-37.0) g/dL RDW 22.3 H (11.5-14.5) % BUN 29 H (7-17) mg/dL Creatinine 1.74 H (0.52-1.04) mg/dL Glucose 116 H (74-99) mg/dL POC Glucose (mg/dL) 103 H (75-99) mg/dL Alkaline Phosphatase 225 H (38-126) U/L Total Protein 5.7 L (6.3-8.2) g/dL Albumin 2.8 L (3.5-5.0) g/dL Microbiology - Last 24 Hours (Table) 03/16/21 13:45 Catheter Tip Culture - Final Picc Line 03/17/21 05:26 Blood Culture - Preliminary Blood No Growth after 24 hours 03/11/21 14:41 Blood Culture - Final Blood No Growth after 144 hours 03/14/21 14:56 Blood Culture Gram Stain - Final Blood Blood Culture - Final Lesly parapsilosis Assessment and Plan Plan: Assessment: #1. Acute hypoxic respiratory failure related to possibility of aspiration pneumonia #2. Known history of MSSA pneumonia as seen on BAL cultures from 02/22/2021 #3. Bacteremia related to Lesly parapsilosis possible source related to MediPort which was removed today on 03/16/2021 #4. History of gastric ulcers status post previous gastrectomy #5. Chronic dysphagia with history of multiple episodes of aspiration pneumonia #6. Chronic TPN infusion for recurrent aspiration pneumonia #7. History of asthmatic bronchitis #8. Chronic pain syndrome #9. Chronic renal failure, stage IV #10. Anxiety and depression Plan: Awaiting results of the follow-up blood cultures If they're negative PICC line can be inserted and TPN can be reinitiated Remains relatively asymptomatic from pulmonary perspective, no worsening dyspnea, cough, no fever Continue antibiotics per ID service recommendations Continue to follow I performed a history & physical examination of the patient and discussed their management with my nurse practitioner, Brittany Garcia. I reviewed the nurse practitioner's note and agree with the documented findings and plan of care. Lung sounds are positive for dim breath sounds throughout the lung calixto. The findings and the impression was discussed with the patient. I attest to the documentation by the nurse practitioner. Time with Patient: Less than 30
[2021-03-18 12:40] LABS: Basophils # (A) 0.07 X 10*3/uL (0.00-0.10); Basophils % (A) 0.7 %; Eosinophils # (A) 0.21 X 10*3/uL (0.04-0.35); Hypochromasia (M) 2+; Lymphocytes # (A) 1.62 X 10*3/uL (0.90-5.00); Lymphocytes % (A) 15.8 %; Monocytes # (A) 1.13 X 10*3/uL (0.20-1.00); Neutrophils # (A) 7.15 X 10*3/uL (1.80-7.70); Neutrophils % (A) 69.8 %
[2021-03-18] MEDS: [UNRECOGNIZED DRUG - REMARK] IV SCH ×9 (15:16)
[2021-03-18] MEDS: ANIDULAFUNGIN 100 MG in SODIUM CHLORIDE 0.9% 100 ML IVPB SCH (16:20)
[2021-03-18 16:35] LABS: Glucose,Whole Blood 103 mg/dL (75-99)
[2021-03-18] MEDS: MELATONIN 5 MG TABLET PO SCH (20:12)
[2021-03-18] MEDS: buPROPion XL 150 MG TAB.ER.24H PO SCH (20:13)
[2021-03-18] MEDS: MIRTAZAPINE 45 MG TABLET PO SCH (20:14)
--- NOTE | 2021-03-18 22:38 | PN ---
PROGRESS NOTE DATE OF SERVICE: 03/18/2021 REASON FOR FOLLOWUP: Candidemia secondary to central line infection. INTERVAL HISTORY: The patient is afebrile. The patient is currently breathing comfortably. She has been complaining of feeling hungry and wants the central line put back so she can get her dialysis. Denies having any chest pain, shortness of breath or cough. PHYSICAL EXAMINATION: Blood pressure 121/72 with a pulse of 92, temperature 98.3. She is 98% on room air. General description is an elderly female up in the bed in no distress. Respiratory system: Unlabored breathing, decreased intensity of breath sounds. No wheeze. Heart S1, S2. Regular rate and rhythm. Abdomen soft, no tenderness. LABS: Hemoglobin is 7.8, white count 10.25, creatinine 1.74. Blood culture obtained yesterday is so far negative. DIAGNOSTIC IMPRESSION AND PLAN: Patient with a positive blood culture that was due to her central line, through which the patient was getting TPN. It was discontinued on the weekend. Repeat culture negative so far. If it remains negative, she will be able to go for another line placement tomorrow. Continue with the Eraxis and monitor clinical course closely. MMODL / IJN: [id number] /
[2021-03-19 01:13] LABS: Glucose,Whole Blood 89 mg/dL (75-99)
[2021-03-19] MEDS: INSULIN ASPART (NovoLOG) 100 UNIT/ML VIAL SQ SCH ×4 (01:33→17:28)
[2021-03-19] MEDS: HYDROcodone/APAP 10-325MG 1 EACH TAB PO PRN ×2 (01:36→13:26)
--- NOTE | 2021-03-19 05:57 | P.PN ---
Subjective Louise Sutton, is a 75 year old female who presented to [facility] emergency room with a chief complaint of mental status changes and hallucinations, patient has a known history of chronic pain syndrome maintained on narcotics she stated that she was maintained on fentanyl patch and Irwin. Presents with altered mental status and respiratory symptoms found to have left midlung aspiration pneumonia. Patient is a known case of aspiration pneumonia and she's getting chronic TPN. Also she has chronic kidney disease. Today she is lying in bed. Mild pain asking for pain medication 1 time dose of narcotics provided. She is hemodynamically stable and she is on room air currently. Hemoglobin slightly low at 7.4, creatinine elevated at baseline of 1.4, baseline is 1.3- 1.6. Chest x-ray showing left midlung infiltrated with no change between today and the previous chest x-ray. She has positive blood culture for Lesyl suspected secondary to MediPort, vascular surgery consult obtained today who removed the port. She is currently covered with Zosyn and eraxis .also she is on home pain medication with Irwin 10 and fentanyl patch 03/17/2021 Admitted with aspiration pneumonia, her PICC line was removed for candidemia. Plan to get PICC line and TPN today This morning she was moving out of bed with assistance to the restroom, she was pleasant comfortable asking for pain medication. No respiratory distress. Patient kept nothing by mouth because of risk of aspiration. Catheter tip culture is pending. Repeat blood culture in the morning. She remains on Zosyn and eraxis 03/18/2021 She remains nothing by mouth, PICC line discontinued and to be placed was cleared by ID with repeat negative blood culture. Currently she is kept on eraxis Patient is asking to be fed some simple diet, regular going to repeat swallow evaluation tomorrow to see if patient is Supple of handling food. However also patient might obtain PICC line before. Follow-up culture results. Objective - Vital Signs Vital signs: Vital Signs Temp 97.4 F L 03/18/21 07:57 Pulse 82 03/18/21 07:57 Resp 16 03/18/21 07:57 BP 111/68 03/18/21 07:57 Pulse Ox 96 03/18/21 07:57 Intake & Output 03/17/21 03/18/21 03/18/21 18:59 06:59 18:59 Intake Total 800 Output Total 400 Balance 400 Intake: Oral 800 Output: Urine 400 Other: Voiding Method Toilet # Voids 2 - Exam -GENERAL: The patient is alert and oriented x2-3, not in any acute distress. Thin built HEENT: Pupils are round and equally reacting to light. EOMI. No scleral icterus. No conjunctival pallor. Normocephalic, atraumatic. No pharyngeal erythema. No thyromegaly. CARDIOVASCULAR: S1 and S2 present. No murmurs, rubs, or gallops. PULMONARY: Chest is clear to auscultation, no wheezing or crackles. ABDOMEN: Soft, nontender, nondistended, normoactive bowel sounds. No palpable organomegaly. MUSCULOSKELETAL: No joint swelling or deformity. EXTREMITIES: No cyanosis, clubbing, or pedal edema. NEUROLOGICAL: Gross neurological examination did not reveal any focal deficits. SKIN: No rashes. no petechiae. - Labs CBC & Chem 7: 03/18/21 07:30 03/18/21 07:30 Labs: Abnormal Lab Results - Last 24 Hours (Table) 03/17/21 03/17/21 03/18/21 Range/Units 11:17 16:47 00:34 BUN (7-17) mg/dL Creatinine (0.52-1.04) mg/dL Glucose (74-99) mg/dL POC Glucose (mg/dL) 107 H 104 H 133 H (75-99) mg/dL Alkaline Phosphatase (38-126) U/L Total Protein (6.3-8.2) g/dL Albumin (3.5-5.0) g/dL 03/18/21 03/18/21 Range/Units 06:25 07:30 BUN 29 H (7-17) mg/dL Creatinine 1.74 H (0.52-1.04) mg/dL Glucose 116 H (74-99) mg/dL POC Glucose (mg/dL) 164 H (75-99) mg/dL Alkaline Phosphatase 225 H (38-126) U/L Total Protein 5.7 L (6.3-8.2) g/dL Albumin 2.8 L (3.5-5.0) g/dL Microbiology - Last 24 Hours (Table) 03/16/21 13:45 Catheter Tip Culture - Final Picc Line 03/17/21 05:26 Blood Culture - Preliminary Blood No Growth after 24 hours 03/11/21 14:41 Blood Culture - Final Blood No Growth after 144 hours 03/14/21 14:56 Blood Culture Gram Stain - Final Blood Blood Culture - Final Lesly parapsilosis Assessment and Plan Assessment: Left midlung aspiration pneumonia Metabolic encephalopathy secondary to above Lesly bacteremia secondary to MediPort which is removed Mild to moderate calorie-protein malnutrition Chronic kidney disease stage III Chronic pain syndrome Plan: This is a pleasant 75 years old female who presents with respiration pneumonia Continue with Zosyn and Eraxis Continue with pain management as per home medication Patient will need to replace PICC line Once blood culture comes back negative Labs and medication were reviewed.. Continue same treatment. Continue with symptomatic treatment. Resume home medication. Monitor lytes and vitals. DVT and GI prophylaxis. Further recommendations as per clinical course of the patient DVT prophylaxis: Subcutaneous heparin GI Prophylaxis: Ppi Prognosis is guarded
[2021-03-19 06:01] LABS: Glucose,Whole Blood 102 mg/dL (75-99)
[2021-03-19] MEDS: LEVOTHYROXINE 88 MCG TAB PO SCH (06:24)
[2021-03-19] MEDS: ALBUTEROL NEBULIZED 2.5 MG/3 ML INHALATION SCH ×4 (07:13→19:19)
[2021-03-19] MEDS: busPIRone HCl 10 MG TAB PO SCH ×2 (08:11→21:07)
[2021-03-19] MEDS: LORATADINE 10 MG TAB PO SCH (08:12)
[2021-03-19] MEDS: FOLIC ACID 1 MG TAB PO SCH (08:12)
[2021-03-19] MEDS: FUROSEMIDE 20 MG TAB PO SCH (08:12)
[2021-03-19] MEDS: THIAMINE 100 MG TAB PO SCH (08:12)
[2021-03-19] MEDS: buPROPion XL 300 MG TAB.ER.24H PO SCH (08:12)
[2021-03-19] MEDS: PANTOPRAZOLE 40 MG TABLET PO SCH ×2 (08:12→17:28)
[2021-03-19] MEDS: hydrOXYzine pamoate 25 MG CAP PO SCH ×3 (08:12→21:08)
[2021-03-19] MEDS: FERROUS SULFATE 325 MG TAB PO SCH (08:12)
[2021-03-19] MEDS: guaiFENesin-DM 600/30MG 1 EACH TAB.ER.12H PO SCH ×2 (08:13→21:08)
[2021-03-19] MEDS: BUTALB/APAP/CAFF 50-325-40MG TAB PO PRN ×2 (08:58→21:07)
[2021-03-19] MEDS: [UNRECOGNIZED DRUG - REMARK] IV SCH ×9 (10:02)
[2021-03-19 11:36] LABS: Glucose,Whole Blood 151 mg/dL (75-99)
--- NOTE | 2021-03-19 12:27 | P.PN ---
Subjective Progress Note Date: 03/19/21 Principal diagnosis: Dyspnea On 03/16/2021 patient seen in follow-up on medical surgical floor. She is resting in bed, denies any worsening dyspnea, room air pulse ox is 97%, o ccasional cough, which is nonproductive, lung sounds are positive for a few rhonchi, no significant congestion, no phlegm production, no chest discomfort. She remains on Eraxis and Zosyn. Her blood culture from 03/11/2021 showed Lesly Parapsilosis. This was thought to be possibly related to MediPort infection, which was removed today by vascular surgery. Follow-up blood culture from 03/16/2021 shows budding yeast. Clinically does not appear to be in any acute distress. Today's labs have been reviewed, there was a BMP done, sodium is 131, potassium is 4.1, chloride is 97, BUN is 40 creatinine is 1.44. Patient has not been able to receive TPN related to lack of central venous access. On 03/19/2021 patient seen in follow-up on medical surgical floor, she is resting comfortably in bed, in no acute distress, she is on room air with a pulse ox of 96%. Iron signs have been stable, she's been afebrile, vital signs have been stable, no cough, no chest discomfort, lung sounds are diminished, but negative for any rhonchi or wheezing. Remains on Eraxis for evidence of Lesly parapsilosis and blood cultures, follow blood cultures are show no growth. Final ulcers are pending. Infectious disease is following, vital signs have been stable, patient's TPN has been on hold, she is tolerating oral intake she is on full liquid diet. His labs are still pending. Clinically patient is comfortable, denies any acute distress other than feeling hungry. Objective - Vital Signs Vital signs: Vital Signs Temp 97.8 F 03/19/21 08:00 Pulse 85 03/19/21 08:00 Resp 18 03/19/21 08:00 BP 137/73 03/19/21 08:00 Pulse Ox 96 03/19/21 08:00 Intake & Output 03/18/21 03/19/21 03/19/21 18:59 06:59 18:59 Weight 42.184 kg Other: # Voids 1 1 # Bowel Movements 0 - Exam GENERAL EXAM: Alert, pleasant, frail-looking 75-year-old white female on room air with pulse ox of 97% comfortable in no apparent distress. HEAD: Normocephalic/atraumatic. EYES: Normal reaction of pupils, equal size. Conjunctiva pink, sclera white. NOSE: Clear with pink turbinates. THROAT: No erythema or exudates. NECK: No masses, no JVD, no thyroid enlargement, no adenopathy. CHEST: No chest wall deformity. Symmetrical expansion. Right upper chest MediPort removal sites covered with a dressing LUNGS: Equal air entry with minimal crackles at the bases CVS: Regular rate and rhythm, normal S1 and S2, no gallops, no murmurs, no rubs ABDOMEN: Soft, nontender. No hepatosplenomegaly, normal bowel sounds, no guarding or rigidity. EXTREMITIES: No clubbing, no edema, no cyanosis, 2+ pulses and upper and lower extremities. MUSCULOSKELETAL: Muscle strength and tone normal. SPINE: No scoliosis or deformity SKIN: No rashes CENTRAL NERVOUS SYSTEM: Alert and oriented -3. No focal deficits, tone is normal in all 4 extremities. PSYCHIATRIC: Alert and oriented -3. Appropriate affect. Intact judgment and insight. - Labs CBC & Chem 7: 03/18/21 07:30 03/18/21 07:30 Labs: Abnormal Lab Results - Last 24 Hours (Table) 03/18/21 03/18/21 03/19/21 Range/Units 07:30 16:33 05:55 Immature Gran # 0.07 H (0.00-0.04) X 10*3/uL Monocytes # 1.13 H (0.20-1.00) X 10*3/uL POC Glucose (mg/dL) 103 H 102 H (75-99) mg/dL 03/19/21 Range/Units 11:34 Immature Gran # (0.00-0.04) X 10*3/uL Monocytes # (0.20-1.00) X 10*3/uL POC Glucose (mg/dL) 151 H (75-99) mg/dL Microbiology - Last 24 Hours (Table) 03/18/21 07:30 Blood Culture - Preliminary Blood No Growth after 24 hours 03/17/21 05:26 Blood Culture - Preliminary Blood No Growth after 48 hours 03/16/21 13:45 Catheter Tip Culture - Final Picc Line Assessment and Plan Plan: Assessment: #1. Acute hypoxic respiratory failure related to possibility of aspiration pneumonia #2. Known history of MSSA pneumonia as seen on BAL cultures from 02/22/2021 #3. Bacteremia related to Lesly parapsilosis possible source related to MediPort which was removed today on 03/16/2021 #4. History of gastric ulcers status post previous gastrectomy #5. Chronic dysphagia with history of multiple episodes of aspiration pneumonia #6. Chronic TPN infusion for recurrent aspiration pneumonia #7. History of asthmatic bronchitis #8. Chronic pain syndrome #9. Chronic renal failure, stage IV #10. Anxiety and depression Plan: Follow up blood cultures have shown no growth thus far Vital signs stable, no dyspnea, patient is on room air, no cough or congestion, breathing comfortably She is tolerating full liquid diet We discussed case with the infectious disease who feels that if the follow-up cultures remain negative patient can have a new central access device inserted for vascular surgery and TPN can be restarted Continue antibiotics per ID service recommendations Continue to follow I performed a history & physical examination of the patient and discussed their management with my nurse practitioner, Brittany Garcia. I reviewed the nurse practitioner's note and agree with the documented findings and plan of care. Lung sounds are positive for dim breath sounds throughout the lung calixto. The findings and the impression was discussed with the patient. I attest to the documentation by the nurse practitioner. Time with Patient: Less than 30
[2021-03-19] MEDS: ANIDULAFUNGIN 100 MG in SODIUM CHLORIDE 0.9% 100 ML IVPB SCH (15:51)
[2021-03-19] MEDS: FAT EMULSION 20% 500 ML in EMPTY BAG 1 BAG IV SCH (16:10)
[2021-03-19 16:38] LABS: Glucose,Whole Blood 166 mg/dL (75-99)
[2021-03-19] MEDS: MIRTAZAPINE 45 MG TABLET PO SCH (21:08)
[2021-03-19] MEDS: MELATONIN 5 MG TABLET PO SCH (21:08)
[2021-03-19] MEDS: buPROPion XL 150 MG TAB.ER.24H PO SCH (21:08)
--- NOTE | 2021-03-19 23:07 | PN ---
PROGRESS NOTE DATE OF SERVICE: 03/19/2021 REASON FOR FOLLOWUP: Candidemia. INTERVAL HISTORY: Patient is afebrile. The patient is currently breathing comfortably. Denies having any chest pain. No shortness of breath or cough. No nausea, vomiting. No abdominal pain. No diarrhea. EXAMINATION: Her blood pressure is 134/70 with a pulse of 84. Temperature 98. She is 100% on room air. General description is an elderly female lying in bed in no distress. Respiratory system: Unlabored breathing, decreased breath sounds in the bases. No wheeze. Heart S1, S2. Regular rate and rhythm. LABS: Blood culture from March 17 and has been negative so far. DIAGNOSTIC TISSUE: Patient with Lesly blood culture related to the central line has been discontinued and the blood culture from March 17 remains negative by tomorrow she is cleared to get another central line. Continue with Eraxis and monitor clinical course closely. MMODL / IJN: [id number] /
[2021-03-20 01:12] LABS: Glucose,Whole Blood 173 mg/dL (75-99)
[2021-03-20] MEDS: [UNRECOGNIZED DRUG - REMARK] IV SCH ×9 (01:23)
[2021-03-20] MEDS: INSULIN ASPART (NovoLOG) 100 UNIT/ML VIAL SQ SCH ×4 (01:27→17:55)
[2021-03-20 05:55] LABS: Glucose,Whole Blood 126 mg/dL (75-99)
[2021-03-20] MEDS: LEVOTHYROXINE 88 MCG TAB PO SCH (06:17)
[2021-03-20] MEDS: busPIRone HCl 10 MG TAB PO SCH ×2 (08:25→20:13)
[2021-03-20] MEDS: hydrOXYzine pamoate 25 MG CAP PO SCH ×3 (08:25→21:44)
[2021-03-20] MEDS: buPROPion XL 300 MG TAB.ER.24H PO SCH (08:26)
[2021-03-20] MEDS: LORATADINE 10 MG TAB PO SCH (08:26)
[2021-03-20] MEDS: THIAMINE 100 MG TAB PO SCH (08:26)
[2021-03-20] MEDS: PANTOPRAZOLE 40 MG TABLET PO SCH ×2 (08:26→17:02)
[2021-03-20] MEDS: FOLIC ACID 1 MG TAB PO SCH (08:26)
[2021-03-20] MEDS: FERROUS SULFATE 325 MG TAB PO SCH (08:26)
[2021-03-20] MEDS: FUROSEMIDE 20 MG TAB PO SCH (08:27)
[2021-03-20] MEDS: BUTALB/APAP/CAFF 50-325-40MG TAB PO PRN ×2 (08:27→20:13)
[2021-03-20] MEDS: guaiFENesin-DM 600/30MG 1 EACH TAB.ER.12H PO SCH ×2 (08:28→20:13)
[2021-03-20] MEDS: ALBUTEROL NEBULIZED 2.5 MG/3 ML INHALATION SCH ×4 (08:32→18:53)
[2021-03-20 09:33] LABS: African American GFR (CKD) 37.8 (60.0-200.0); Anion Gap 13.5 mmol/L (10.00-18.00); Blood Urea Nitrogen 23.4 mg/dL (9.0-27.0); Carbon Dioxide 24.2 mmol/L (20.0-27.5); Magnesium 1.9 mg/dL (1.5-2.4); Non-African American GFR(CKD) 32.6 (60.0-200.0); Phosphorus 2.3 mg/dL (2.4-5.1); Potassium 4.6 mmol/L (3.5-5.5)
[2021-03-20] MEDS: HYDROcodone/APAP 10-325MG 1 EACH TAB PO PRN ×2 (10:24→17:52)
[2021-03-20 11:27] LABS: Basophils # (A) 0.07 X 10*3/uL (0.00-0.10); Basophils % (A) 0.5 %; Eosinophils # (A) 0.13 X 10*3/uL (0.04-0.35); HCT 29.6 % (37.2-46.3); HGB 8.5 g/dL (12.0-15.0); Lymphocytes # (A) 1.79 X 10*3/uL (0.90-5.00); Lymphocytes % (A) 13.8 %; MCH 24.4 pg (27.0-32.0); MCHC 28.7 g/dL (32.0-37.0); MCV 84.8 fL (80.0-97.0); Mean Platelet Volume 9.2 fL (9.5-12.2); Monocytes # (A) 0.98 X 10*3/uL (0.20-1.00); Monocytes % (A) 7.6 %; Neutrophils # (A) 9.93 X 10*3/uL (1.80-7.70); Neutrophils % (A) 76.5 %; Platelet Count 384 X 10*3/uL (140-440); RBC 3.49 X 10*6/uL (4.10-5.20); RDW 21.8 % (11.5-14.5); WBC 12.98 X 10*3/uL (4.50-10.00)
[2021-03-20 11:28] LABS: Glucose,Whole Blood 133 mg/dL (75-99)
[2021-03-20] MEDS ORDERED: SODIUM PHOSPHATE 10 MMOL in SODIUM CHLORIDE 0.9% 250 ML IVPB ONE (12:00)
--- NOTE | 2021-03-20 12:57 | P.PN ---
Subjective Progress Note Date: 03/20/21 Principal diagnosis: Dyspnea On 03/16/2021 patient seen in follow-up on medical surgical floor. She is resting in bed, denies any worsening dyspnea, room air pulse ox is 97%, o ccasional cough, which is nonproductive, lung sounds are positive for a few rhonchi, no significant congestion, no phlegm production, no chest discomfort. She remains on Eraxis and Zosyn. Her blood culture from 03/11/2021 showed Lesly Parapsilosis. This was thought to be possibly related to MediPort infection, which was removed today by vascular surgery. Follow-up blood culture from 03/16/2021 shows budding yeast. Clinically does not appear to be in any acute distress. Today's labs have been reviewed, there was a BMP done, sodium is 131, potassium is 4.1, chloride is 97, BUN is 40 creatinine is 1.44. Patient has not been able to receive TPN related to lack of central venous access. On 03/19/2021 patient seen in follow-up on medical surgical floor, she is resting comfortably in bed, in no acute distress, she is on room air with a pulse ox of 96%. Iron signs have been stable, she's been afebrile, vital signs have been stable, no cough, no chest discomfort, lung sounds are diminished, but negative for any rhonchi or wheezing. Remains on Eraxis for evidence of Lesly parapsilosis and blood cultures, follow blood cultures are show no growth. Final ulcers are pending. Infectious disease is following, vital signs have been stable, patient's TPN has been on hold, she is tolerating oral intake she is on full liquid diet. His labs are still pending. Clinically patient is comfortable, denies any acute distress other than feeling hungry. On 03/20/2021 patient is seen in follow-up on medical surgical floor. She is awake and alert, in no acute distress, breathing comfortably, she is on room air with pulse ox of 96%, afebrile, hemodynamically she has been stable, denies any worsening dyspnea, she does have occasional cough, no significant phlegm production. Her follow-up blood cultures from 03/17/2021 and 03/18/2021 have shown no growth thus far, PICC line tip showed no growth, patient remains on Eraxis, for evidence of Lesly parapsilosis in blood cultures. Hemodynamically patient is stable, clinically has remained stable, she is tolerating full liquid diet however she is wondering when the TPN can be restarted for nutritional support as well. 7 reviewed, with blood cell count is 12.8, hemoglobin is 8.5, electrolytes are within normal limits, B1 is 23, creatinine is improving and is down to 1.6 on today's labs. Objective - Vital Signs Vital signs: Vital Signs Temp 97.6 F 03/20/21 08:00 Pulse 90 03/20/21 08:43 Resp 22 03/20/21 08:43 BP 129/76 03/20/21 08:00 Pulse Ox 96 03/20/21 08:00 Intake & Output 03/19/21 03/20/21 03/20/21 18:59 06:59 18:59 Intake Total 400 519 Balance 400 519 Intake: Intake, IV Titration 100 Amount Anidulafungin 100 mg In 100 Sodium Chloride 0.9% 100 ml @ 84 mls/hr IVPB DAILY @1600 [facility] Rx#:[id number] Oral 300 519 Other: # Voids 3 1 # Bowel Movements 0 - Exam GENERAL EXAM: Alert, pleasant, frail-looking 75-year-old white female on room air with pulse ox of 97% comfortable in no apparent distress. HEAD: Normocephalic/atraumatic. EYES: Normal reaction of pupils, equal size. Conjunctiva pink, sclera white. NOSE: Clear with pink turbinates. THROAT: No erythema or exudates. NECK: No masses, no JVD, no thyroid enlargement, no adenopathy. CHEST: No chest wall deformity. Symmetrical expansion. Right upper chest MediPort removal sites covered with a dressing LUNGS: Equal air entry with minimal crackles at the bases CVS: Regular rate and rhythm, normal S1 and S2, no gallops, no murmurs, no rubs ABDOMEN: Soft, nontender. No hepatosplenomegaly, normal bowel sounds, no guarding or rigidity. EXTREMITIES: No clubbing, no edema, no cyanosis, 2+ pulses and upper and lower extremities. MUSCULOSKELETAL: Muscle strength and tone normal. SPINE: No scoliosis or deformity SKIN: No rashes CENTRAL NERVOUS SYSTEM: Alert and oriented -3. No focal deficits, tone is normal in all 4 extremities. PSYCHIATRIC: Alert and oriented -3. Appropriate affect. Intact judgment and insight. - Labs CBC & Chem 7: 03/20/21 04:20 03/20/21 04:20 Labs: Abnormal Lab Results - Last 24 Hours (Table) 03/19/21 03/20/21 03/20/21 Range/Units 16:36 01:02 04:20 WBC (4.50-10.00) X 10*3/uL RBC (4.10-5.20) X 10*6/uL Hgb (12.0-15.0) g/dL Hct (37.2-46.3) % MCH (27.0-32.0) pg MCHC (32.0-37.0) g/dL RDW (11.5-14.5) % MPV (9.5-12.2) fL Immature Gran # (0.00-0.04) X 10*3/uL Neutrophils # (1.80-7.70) X 10*3/uL Creatinine 1.6 H (0.6-1.5) mg/dL Est GFR (CKD-EPI)AfAm 37.8 L (60.0-200.0) Est GFR (CKD-EPI)NonAf 32.6 L (60.0-200.0) POC Glucose (mg/dL) 166 H 173 H (75-99) mg/dL Phosphorus 2.3 L (2.4-5.1) mg/dL 03/20/21 03/20/21 03/20/21 Range/Units 04:20 05:53 11:26 WBC 12.98 H (4.50-10.00) X 10*3/uL RBC 3.49 L (4.10-5.20) X 10*6/uL Hgb 8.5 L (12.0-15.0) g/dL Hct 29.6 L (37.2-46.3) % MCH 24.4 L (27.0-32.0) pg MCHC 28.7 L (32.0-37.0) g/dL RDW 21.8 H (11.5-14.5) % MPV 9.2 L (9.5-12.2) fL Immature Gran # 0.08 H (0.00-0.04) X 10*3/uL Neutrophils # 9.93 H (1.80-7.70) X 10*3/uL Creatinine (0.6-1.5) mg/dL Est GFR (CKD-EPI)AfAm (60.0-200.0) Est GFR (CKD-EPI)NonAf (60.0-200.0) POC Glucose (mg/dL) 126 H 133 H (75-99) mg/dL Phosphorus (2.4-5.1) mg/dL Microbiology - Last 24 Hours (Table) 03/14/21 14:56 Blood Culture Gram Stain - Final Blood Blood Culture - Final Lesly parapsilosis 03/18/21 07:30 Blood Culture - Preliminary Blood No Growth after 48 hours 03/17/21 05:26 Blood Culture - Preliminary Blood No Growth after 72 hours Assessment and Plan Plan: Assessment: #1. Acute hypoxic respiratory failure related to possibility of aspiration pneumonia, resolved #2. Known history of MSSA pneumonia as seen on BAL cultures from 02/22/2021 #3. Bacteremia related to Lesly parapsilosis possible source related to MediPort which was removed today on 03/16/2021 #4. History of gastric ulcers status post previous gastrectomy #5. Chronic dysphagia with history of multiple episodes of aspiration pneumonia #6. Chronic TPN infusion for recurrent aspiration pneumonia #7. History of asthmatic bronchitis #8. Chronic pain syndrome #9. Chronic renal failure, stage IV #10. Anxiety and depression Plan: Follow up blood cultures have shown no growth Discussed case with vascular surgery and per ID service the mediport can be re- inserted now and TPN resumed Vital signs stable, no dyspnea, patient is on room air, no cough or congestion, breathing comfortably She is tolerating full liquid diet Continue antibiotics per ID service recommendations Following that patient can be considered for discharge home Continue to follow I performed a history & physical examination of the patient and discussed their management with my nurse practitioner, Brittany Garcia. I reviewed the nurse practitioner's note and agree with the documented findings and plan of care. Lung sounds are positive for dim breath sounds throughout the lung calixto. The findings and the impression was discussed with the patient. I attest to the documentation by the nurse practitioner. Time with Patient: Less than 30
[2021-03-20] MEDS: LORazepam 0.5 MG TAB PO PRN (13:37)
[2021-03-20] MEDS ORDERED: LIDOCAINE 1% INJ 10MG/ML (20 ML MDV) SQ ONE (14:19)
--- NOTE | 2021-03-20 14:50 | IR ---
PICC LINE PLACEMENT: HISTORY: Infection requiring long-term antibiotic therapy PROCEDURE: Ultrasound and fluoroscopic guidance of PICC line placement. COMPLICATIONS: None ANESTHESIA: 1. 1% Lidocaine locally. FINDINGS/TECHNIQUE: The procedure was explained to the patient. The risks, complications, benefits and alternatives were discussed and any questions were answered. Informed consent was obtained. The patient was placed supine on the fluoroscopic table and prepped and draped in the usual sterile fash ion. Utilizing a 21 gauge needle and sonographic and fluoroscopic guidance, access in the left brac hial vein was achieved and there is placement of a 0.018 guidewire. The vein is patent. A 4-F sheat h was placed over the guidewire. The guidewire and dilator were removed and a 4-F. PICC line was krystle dylan through the sheath with the tip at the level of the SVC. The sheath was removed, the catheter wa s flushed and sutured into position. The patient was stable throughout the procedure and remained st able upon discharge from the Department of Radiology. The vein puncture was patent under ultrasound. A wilder scale image was obtained to document patency of the vein punctured. All elements of the maximal barrier technique were utilized. FLUOROSCOPY TIME: 0.3 minutes and one image IMPRESSION: Successful PICC line placement under ultrasound and fluoroscopic guidance.
--- NOTE | 2021-03-20 15:27 | P.PN ---
Subjective Progress Note Date: 03/20/21 Principal diagnosis: Bacteremia Patient is seen as a follow-up from tunneled PICC line removal on [address] Tam. Repeat blood cultures preliminary have no growth. PICC line catheter tip culture is negative for growth. We were asked to see patient regarding possible replacement of port and or PICC line. However PICC line had artery been ordered by interventional radiology for today to resume tube feedings. Objective - Vital Signs Vital signs: Vital Signs Temp 97.6 F 03/20/21 08:00 Pulse 90 03/20/21 08:43 Resp 22 03/20/21 08:43 BP 129/76 03/20/21 08:00 Pulse Ox 96 03/20/21 08:00 Intake & Output 03/19/21 03/20/21 03/20/21 18:59 06:59 18:59 Intake Total 400 519 Balance 400 519 Intake: Intake, IV Titration 100 Amount Anidulafungin 100 mg In 100 Sodium Chloride 0.9% 100 ml @ 84 mls/hr IVPB DAILY @1600 [facility] Rx#:[id number] Oral 300 519 Other: # Voids 3 1 # Bowel Movements 0 - Exam General appearance: The patient is alert, oriented, in no acute distress. HET: Head is normocephalic and atraumatic. Pupils are equal and reactive. Oropharynx is clear without lesions. Neck: Supple without lymphadenopathy. Trachea midline. Chest wall: Right upper chest wall tunneled catheter removal site clean dry and intact. Abdomen: Soft, nontender, nondistended. Extremities: Normal skin color and turgor. . Neurological: No focal deficits. Alert and oriented 3. - Labs CBC & Chem 7: 03/20/21 04:20 03/20/21 04:20 Labs: Abnormal Lab Results - Last 24 Hours (Table) 03/19/21 03/20/21 03/20/21 Range/Units 16:36 01:02 04:20 WBC (4.50-10.00) X 10*3/uL RBC (4.10-5.20) X 10*6/uL Hgb (12.0-15.0) g/dL Hct (37.2-46.3) % MCH (27.0-32.0) pg MCHC (32.0-37.0) g/dL RDW (11.5-14.5) % MPV (9.5-12.2) fL Immature Gran # (0.00-0.04) X 10*3/uL Neutrophils # (1.80-7.70) X 10*3/uL Creatinine 1.6 H (0.6-1.5) mg/dL Est GFR (CKD-EPI)AfAm 37.8 L (60.0-200.0) Est GFR (CKD-EPI)NonAf 32.6 L (60.0-200.0) POC Glucose (mg/dL) 166 H 173 H (75-99) mg/dL Phosphorus 2.3 L (2.4-5.1) mg/dL 03/20/21 03/20/21 03/20/21 Range/Units 04:20 05:53 11:26 WBC 12.98 H (4.50-10.00) X 10*3/uL RBC 3.49 L (4.10-5.20) X 10*6/uL Hgb 8.5 L (12.0-15.0) g/dL Hct 29.6 L (37.2-46.3) % MCH 24.4 L (27.0-32.0) pg MCHC 28.7 L (32.0-37.0) g/dL RDW 21.8 H (11.5-14.5) % MPV 9.2 L (9.5-12.2) fL Immature Gran # 0.08 H (0.00-0.04) X 10*3/uL Neutrophils # 9.93 H (1.80-7.70) X 10*3/uL Creatinine (0.6-1.5) mg/dL Est GFR (CKD-EPI)AfAm (60.0-200.0) Est GFR (CKD-EPI)NonAf (60.0-200.0) POC Glucose (mg/dL) 126 H 133 H (75-99) mg/dL Phosphorus (2.4-5.1) mg/dL Microbiology - Last 24 Hours (Table) 03/14/21 14:56 Blood Culture Gram Stain - Final Blood Blood Culture - Final Lesly parapsilosis 03/18/21 07:30 Blood Culture - Preliminary Blood No Growth after 48 hours 03/17/21 05:26 Blood Culture - Preliminary Blood No Growth after 72 hours Assessment and Plan Assessment: 1. Bacteremia status post removal of tunneled PICC line 2. Repeat blood cultures preliminary no growth 3. History of chronic gastric ulcers and aspiration pneumonia requiring TPN Plan: 1. Agree with consultation to interventional radiology for tunneled PICC line or peripheral PICC line placement 2. Follow-up with [facility] The impression and plan of care has been dictated as directed. Dr. Newton I performed a history and examination of this patient, discussed the same with the dictator. I agree with the dictator's note ,documented as a scribe. Any additional findings or plans will be noted.
[2021-03-20 16:38] LABS: Glucose,Whole Blood 102 mg/dL (75-99)
[2021-03-20] MEDS: ANIDULAFUNGIN 100 MG in SODIUM CHLORIDE 0.9% 100 ML IVPB SCH (17:02)
--- NOTE | 2021-03-20 17:04 | PN ---
PROGRESS NOTE DATE OF SERVICE: 03/20/2021 REASON FOR FOLLOWUP: Candidemia secondary to the underlying infection. INTERVAL COURSE: The patient is afebrile. The patient is currently breathing comfortably. Patient denies having any chest pain. No shortness of breath or cough. No abdominal pain. No diarrhea. PHYSICAL EXAMINATION: Blood pressure 126/74 with a pulse of 80, temperature 98. She is 97% on room air. General description is an elderly female lying in bed in no distress. Respiratory system: Unlabored breathing, clear to auscultation anteriorly. Heart S1, S2. Regular rate and rhythm. Abdomen soft, no tenderness. LABS: Blood culture from March 17 and March 18 so far negative. DIAGNOSTIC IMPRESSION AND PLAN: Patient with candidemia, source likely has been discontinued. Repeat culture has been negative. Patient will get a PICC line. She will continue with Eraxis. Diflucan could not be used because of the other medication patient is on. Plan is for a total of 2 weeks from negative blood cultures and close outpatient followup. MMODL / IJN: [id number] /
[2021-03-20] MEDS ORDERED: [UNRECOGNIZED DRUG - REMARK] IV SCH ×9 (18:00)
[2021-03-20] MEDS: MELATONIN 5 MG TABLET PO SCH (20:13)
[2021-03-20] MEDS: buPROPion XL 150 MG TAB.ER.24H PO SCH (20:13)
[2021-03-20] MEDS: MIRTAZAPINE 45 MG TABLET PO SCH (20:13)
--- NOTE | 2021-03-20 23:45 | P.PN ---
Subjective Progress Note Date: 03/19/21 Louise Sutton, is a 75 year old female who presented to [facility] emergency room with a chief complaint of mental status changes and hallucinations, patient has a known history of chronic pain syndrome maintained on narcotics she stated that she was maintained on fentanyl patch and [place]. Presents with altered mental status and respiratory symptoms found to have left midlung aspiration pneumonia. Patient is a known case of aspiration pneumonia and she's getting chronic TPN. Also she has chronic kidney disease. Today she is lying in bed. Mild pain asking for pain medication 1 time dose of narcotics provided. She is hemodynamically stable and she is on room air currently. Hemoglobin slightly low at 7.4, creatinine elevated at baseline of 1.4, baseline is 1.3- 1.6. Chest x-ray showing left midlung infiltrated with no change between today and the previous chest x-ray. She has positive blood culture for Lesly suspected secondary to MediPort, vascular surgery consult obtained today who removed the port. She is currently covered with Zosyn and eraxis .also she is on home pain medication with [place] 10 and fentanyl patch 03/17/2021 Admitted with aspiration pneumonia, her PICC line was removed for candidemia. Plan to get PICC line and TPN today This morning she was moving out of bed with assistance to the restroom, she was pleasant comfortable asking for pain medication. No respiratory distress. Patient kept nothing by mouth because of risk of aspiration. Catheter tip culture is pending. Repeat blood culture in the morning. She remains on Zosyn and eraxis 03/18/2021 She remains nothing by mouth, PICC line discontinued and to be placed was cleared by ID with repeat negative blood culture. Currently she is kept on eraxis Patient is asking to be fed some simple diet, regular going to repeat swallow evaluation tomorrow to see if patient is Supple of handling food. However also patient might obtain PICC line before. Follow-up culture results. 03/19/2021 Patient is currently resting in the bed comfortably. Awake alert and oriented x3. No complaints of chest pain or shortness of. No fever no chills. No cough or sputum production. Patient is being continued on Eraxis due to Lesly bacteremia. Blood cultures have been negative. Currently TPN is on hold and MediPort has been removed. Possible central line placement once cleared by ID and initiate TPN. Pulmonary and ID is on board. Current medications reviewed. Objective - Vital Signs Vital signs: Vital Signs Temp 98.4 F 03/19/21 14:00 Pulse 84 03/19/21 15:42 Resp 16 03/19/21 15:42 BP 122/69 03/19/21 14:00 Pulse Ox 97 03/19/21 14:00 Intake & Output 03/18/21 03/19/21 03/19/21 18:59 06:59 18:59 Weight 42.184 kg Other: # Voids 1 1 # Bowel Movements 0 - Exam - Exam -GENERAL: The patient is alert and oriented x2-3, not in any acute distress. Thin built HEENT: Pupils are round and equally reacting to light. EOMI. No scleral icterus. No conjunctival pallor. Normocephalic, atraumatic. No pharyngeal erythema. No thyromegaly. CARDIOVASCULAR: S1 and S2 present. No murmurs, rubs, or gallops. PULMONARY: Chest is clear to auscultation, no wheezing or crackles. ABDOMEN: Soft, nontender, nondistended, normoactive bowel sounds. No palpable organomegaly. MUSCULOSKELETAL: No joint swelling or deformity. EXTREMITIES: No cyanosis, clubbing, or pedal edema. NEUROLOGICAL: Gross neurological examination did not reveal any focal deficits. SKIN: No rashes. no petechiae. - Labs CBC & Chem 7: 03/20/21 04:20 03/20/21 04:20 Labs: Abnormal Lab Results - Last 24 Hours (Table) 03/18/21 03/19/21 03/19/21 Range/Units 16:33 05:55 11:34 POC Glucose (mg/dL) 103 H 102 H 151 H (75-99) mg/dL Microbiology - Last 24 Hours (Table) 03/18/21 07:30 Blood Culture - Preliminary Blood No Growth after 24 hours 03/17/21 05:26 Blood Culture - Preliminary Blood No Growth after 48 hours Assessment and Plan Assessment: Left midlung aspiration pneumonia Metabolic encephalopathy secondary to above Lesly bacteremia secondary to MediPort which is removed Mild to moderate calorie-protein malnutrition Chronic kidney disease stage III Chronic pain syndrome Plan: This is a pleasant 75 years old female who presents with respiration pneumonia Continue with Zosyn and Eraxis Continue with pain management as per home medication Patient will need to replace PICC line Once blood culture comes back negative Labs and medication were reviewed.. Continue with symptomatic treatment. Monitor lytes and vitals. DVT and GI prophylaxis. DVT prophylaxis: Subcutaneous heparin GI Prophylaxis: Ppi Prognosis is guarded Time with Patient: Greater than 30
--- NOTE | 2021-03-20 23:50 | P.PN ---
Subjective Progress Note Date: 03/20/21 Louise Sutton, is a 75 year old female who presented to [facility] emergency room with a chief complaint of mental status changes and hallucinations, patient has a known history of chronic pain syndrome maintained on narcotics she stated that she was maintained on fentanyl patch and [place]. Presents with altered mental status and respiratory symptoms found to have left midlung aspiration pneumonia. Patient is a known case of aspiration pneumonia and she's getting chronic TPN. Also she has chronic kidney disease. Today she is lying in bed. Mild pain asking for pain medication 1 time dose of narcotics provided. She is hemodynamically stable and she is on room air currently. Hemoglobin slightly low at 7.4, creatinine elevated at baseline of 1.4, baseline is 1.3- 1.6. Chest x-ray showing left midlung infiltrated with no change between today and the previous chest x-ray. She has positive blood culture for Lesly suspected secondary to MediPort, vascular surgery consult obtained today who removed the port. She is currently covered with Zosyn and eraxis .also she is on home pain medication with [place] 10 and fentanyl patch 03/17/2021 Admitted with aspiration pneumonia, her PICC line was removed for candidemia. Plan to get PICC line and TPN today This morning she was moving out of bed with assistance to the restroom, she was pleasant comfortable asking for pain medication. No respiratory distress. Patient kept nothing by mouth because of risk of aspiration. Catheter tip culture is pending. Repeat blood culture in the morning. She remains on Zosyn and eraxis 03/18/2021 She remains nothing by mouth, PICC line discontinued and to be placed was cleared by ID with repeat negative blood culture. Currently she is kept on eraxis Patient is asking to be fed some simple diet, regular going to repeat swallow evaluation tomorrow to see if patient is Supple of handling food. However also patient might obtain PICC line before. Follow-up culture results. 03/19/2021 Patient is currently resting in the bed comfortably. Awake alert and oriented x3. No complaints of chest pain or shortness of. No fever no chills. No cough or sputum production. Patient is being continued on Eraxis due to Lesly bacteremia. Blood cultures have been negative. Currently TPN is on hold and MediPort has been removed. Possible central line placement once cleared by ID and initiate TPN. Pulmonary and ID is on board. 03/20/2021 Patient is currently lying in bed awake alert and oriented x3. Patient seems to be anxious. Hemodynamically stable. Denied any chest pain or shortness breath. No fever no chills. No cough or sputum production. No nausea vomiting abdominal pain or diarrhea. Repeat blood cultures have been negative. PICC line tip culture showed no growth. Blood cultures were growing Lesly. Repeat blood cultures have been negative. Currently being on antifungals in the form of Eraxis. Patient is tolerating oral diet. Central line placement today and possible reinitiation of TPN. Laboratory data showed WBC 12.9 hemoglobin 8.5 and platelets 384 BUN 23.4 and creatinine 1.6 and magnesium 1.9 Current medications reviewed. Objective - Vital Signs Vital signs: Vital Signs Temp 98.2 F 03/20/21 20:00 Pulse 83 03/20/21 20:00 Resp 18 03/20/21 14:00 BP 130/75 03/20/21 20:00 Pulse Ox 98 03/20/21 20:00 Intake & Output 03/20/21 03/20/21 03/21/21 06:59 18:59 06:59 Intake Total 519 540 Balance 519 540 Intake: Oral 519 540 Other: # Voids 1 1 # Bowel Movements 0 - Exam - Exam -GENERAL: The patient is alert and oriented x2-3, not in any acute distress. Thin built HEENT: Pupils are round and equally reacting to light. EOMI. No scleral icterus. No conjunctival pallor. Normocephalic, atraumatic. No pharyngeal erythema. No thyromegaly. CARDIOVASCULAR: S1 and S2 present. No murmurs, rubs, or gallops. PULMONARY: Chest is clear to auscultation, no wheezing or crackles. ABDOMEN: Soft, nontender, nondistended, normoactive bowel sounds. No palpable organomegaly. MUSCULOSKELETAL: No joint swelling or deformity. EXTREMITIES: No cyanosis, clubbing, or pedal edema. NEUROLOGICAL: Gross neurological examination did not reveal any focal deficits. SKIN: No rashes. no petechiae. - Labs CBC & Chem 7: 03/20/21 04:20 03/20/21 04:20 Labs: Abnormal Lab Results - Last 24 Hours (Table) 12/05/1003/20/21 03/20/21 Range/Units 01:02 04:20 04:20 WBC 12.98 H (4.50-10.00) X 10*3/uL RBC 3.49 L (4.10-5.20) X 10*6/uL Hgb 8.5 L (12.0-15.0) g/dL Hct 29.6 L (37.2-46.3) % MCH 24.4 L (27.0-32.0) pg MCHC 28.7 L (32.0-37.0) g/dL RDW 21.8 H (11.5-14.5) % MPV 9.2 L (9.5-12.2) fL Immature Gran # 0.08 H (0.00-0.04) X 10*3/uL Neutrophils # 9.93 H (1.80-7.70) X 10*3/uL Creatinine 1.6 H (0.6-1.5) mg/dL Est GFR (CKD-EPI)AfAm 37.8 L (60.0-200.0) Est GFR (CKD-EPI)NonAf 32.6 L (60.0-200.0) POC Glucose (mg/dL) 173 H (75-99) mg/dL Phosphorus 2.3 L (2.4-5.1) mg/dL 03/20/21 03/20/21 03/20/21 Range/Units 05:53 11:26 16:37 WBC (4.50-10.00) X 10*3/uL RBC (4.10-5.20) X 10*6/uL Hgb (12.0-15.0) g/dL Hct (37.2-46.3) % MCH (27.0-32.0) pg MCHC (32.0-37.0) g/dL RDW (11.5-14.5) % MPV (9.5-12.2) fL Immature Gran # (0.00-0.04) X 10*3/uL Neutrophils # (1.80-7.70) X 10*3/uL Creatinine (0.6-1.5) mg/dL Est GFR (CKD-EPI)AfAm (60.0-200.0) Est GFR (CKD-EPI)NonAf (60.0-200.0) POC Glucose (mg/dL) 126 H 133 H 102 H (75-99) mg/dL Phosphorus (2.4-5.1) mg/dL Microbiology - Last 24 Hours (Table) 03/14/21 14:56 Blood Culture Gram Stain - Final Blood Blood Culture - Final Lesly parapsilosis 03/18/21 07:30 Blood Culture - Preliminary Blood No Growth after 48 hours 03/17/21 05:26 Blood Culture - Preliminary Blood No Growth after 72 hours Assessment and Plan Assessment: Left midlung aspiration pneumonia Acute hypoxic respiratory failure related to possibility of aspiration pneumonia, resolved Metabolic encephalopathy secondary to above, resolved Lesly bacteremia secondary to MediPort which is removed Mild to moderate calorie-protein malnutrition Chronic TPN infusion for recurrent aspiration pneumonia Chronic kidney disease stage III Chronic pain syndrome Anxiety and depression Plan: This is a pleasant 75 years old female who presents with respiration pneumonia Continue with Eraxis Continue with pain management as per home medication Patient will need to replace PICC line Once blood culture comes back negative Labs and medication were reviewed.. Continue with symptomatic treatment. Monitor lytes and vitals. DVT and GI prophylaxis. DVT prophylaxis: Subcutaneous heparin GI Prophylaxis: Ppi Prognosis is guarded Time with Patient: Greater than 30
[2021-03-21 00:43] LABS: Glucose,Whole Blood 181 mg/dL (75-99)
[2021-03-21] MEDS: INSULIN ASPART (NovoLOG) 100 UNIT/ML VIAL SQ SCH ×3 (01:12→11:39)
[2021-03-21 03:58] VITALS: RESP 17
[2021-03-21 05:43] LABS: Glucose,Whole Blood 165 mg/dL (75-99)
[2021-03-21] MEDS: HYDROcodone/APAP 10-325MG 1 EACH TAB PO PRN ×2 (06:00→14:12)
[2021-03-21] MEDS: LEVOTHYROXINE 88 MCG TAB PO SCH (06:22)
[2021-03-21 06:51] LABS: Glucose,Whole Blood 158 mg/dL (75-99)
[2021-03-21] MEDS: busPIRone HCl 10 MG TAB PO SCH (07:26)
[2021-03-21] MEDS: FUROSEMIDE 20 MG TAB PO SCH (07:27)
[2021-03-21] MEDS: LORATADINE 10 MG TAB PO SCH (07:27)
[2021-03-21] MEDS: hydrOXYzine pamoate 25 MG CAP PO SCH (07:27)
[2021-03-21] MEDS: FOLIC ACID 1 MG TAB PO SCH (07:27)
[2021-03-21] MEDS: FERROUS SULFATE 325 MG TAB PO SCH (07:27)
[2021-03-21] MEDS: PANTOPRAZOLE 40 MG TABLET PO SCH (07:27)
[2021-03-21] MEDS: THIAMINE 100 MG TAB PO SCH (07:28)
[2021-03-21] MEDS: buPROPion XL 300 MG TAB.ER.24H PO SCH (07:28)
[2021-03-21] MEDS: guaiFENesin-DM 600/30MG 1 EACH TAB.ER.12H PO SCH (07:33)
[2021-03-21] MEDS: ALBUTEROL NEBULIZED 2.5 MG/3 ML INHALATION SCH ×3 (07:35→15:33)
[2021-03-21 07:43] VITALS: BP 109/60; TEMP 97.8
[2021-03-21] MEDS: BUTALB/APAP/CAFF 50-325-40MG TAB PO PRN (08:12)
[2021-03-21 09:33] LABS: Basophils # (A) 0.07 X 10*3/uL (0.00-0.10); Basophils % (A) 0.6 %; Eosinophils # (A) 0.14 X 10*3/uL (0.04-0.35); Eosinophils % (A) 1.3 %; HCT 27.8 % (37.2-46.3); HGB 7.9 g/dL (12.0-15.0); Lymphocytes # (A) 1.97 X 10*3/uL (0.90-5.00); Lymphocytes % (A) 18.1 %; MCH 23.8 pg (27.0-32.0); MCHC 28.4 g/dL (32.0-37.0); MCV 83.7 fL (80.0-97.0); Mean Platelet Volume 9.8 fL (9.5-12.2); Monocytes # (A) 0.91 X 10*3/uL (0.20-1.00); Monocytes % (A) 8.3 %; Neutrophils # (A) 7.75 X 10*3/uL (1.80-7.70); Neutrophils % (A) 71.1 %; Platelet Count 407 X 10*3/uL (140-440); RBC 3.32 X 10*6/uL (4.10-5.20); RDW 21.7 % (11.5-14.5); WBC 10.91 X 10*3/uL (4.50-10.00)
[2021-03-21 10:29] LABS: African American GFR (CKD) 43.1 (60.0-200.0); Anion Gap 11.6 mmol/L (10.00-18.00); BUN/Creat Ratio 17.36 Ratio (12.00-20.00); Blood Urea Nitrogen 24.3 mg/dL (9.0-27.0); Calcium 8.4 mg/dL (8.7-10.3); Carbon Dioxide 21.4 mmol/L (20.0-27.5); Non-African American GFR(CKD) 37.2 (60.0-200.0); Potassium 4.1 mmol/L (3.5-5.5)
--- NOTE | 2021-03-21 11:11 | P.PN ---
Subjective Progress Note Date: 03/21/21 Principal diagnosis: Dyspnea On 03/16/2021 patient seen in follow-up on medical surgical floor. She is resting in bed, denies any worsening dyspnea, room air pulse ox is 97%, o ccasional cough, which is nonproductive, lung sounds are positive for a few rhonchi, no significant congestion, no phlegm production, no chest discomfort. She remains on Eraxis and Zosyn. Her blood culture from 03/11/2021 showed Lesly Parapsilosis. This was thought to be possibly related to MediPort infection, which was removed today by vascular surgery. Follow-up blood culture from 03/16/2021 shows budding yeast. Clinically does not appear to be in any acute distress. Today's labs have been reviewed, there was a BMP done, sodium is 131, potassium is 4.1, chloride is 97, BUN is 40 creatinine is 1.44. Patient has not been able to receive TPN related to lack of central venous access. On 03/19/2021 patient seen in follow-up on medical surgical floor, she is resting comfortably in bed, in no acute distress, she is on room air with a pulse ox of 96%. Iron signs have been stable, she's been afebrile, vital signs have been stable, no cough, no chest discomfort, lung sounds are diminished, but negative for any rhonchi or wheezing. Remains on Eraxis for evidence of Lesly parapsilosis and blood cultures, follow blood cultures are show no growth. Final ulcers are pending. Infectious disease is following, vital signs have been stable, patient's TPN has been on hold, she is tolerating oral intake she is on full liquid diet. His labs are still pending. Clinically patient is comfortable, denies any acute distress other than feeling hungry. On 03/20/2021 patient is seen in follow-up on medical surgical floor. She is awake and alert, in no acute distress, breathing comfortably, she is on room air with pulse ox of 96%, afebrile, hemodynamically she has been stable, denies any worsening dyspnea, she does have occasional cough, no significant phlegm production. Her follow-up blood cultures from 03/17/2021 and 03/18/2021 have shown no growth thus far, PICC line tip showed no growth, patient remains on Eraxis, for evidence of Lesly parapsilosis in blood cultures. Hemodynamically patient is stable, clinically has remained stable, she is tolerating full liquid diet however she is wondering when the TPN can be restarted for nutritional support as well. 7 reviewed, with blood cell count is 12.8, hemoglobin is 8.5, electrolytes are within normal limits, B1 is 23, creatinine is improving and is down to 1.6 on today's labs. On 03/22/2021 patient seen in follow-up on medical surgical floor, she is breathing comfortably, she is awake and alert, oriented 3, denies any dyspnea, no cough, no chest discomfort. Yesterday she had a left before meals PICC line inserted, and TPN has been reinitiated. In addition patient is tolerating full liquid diet, she feels better, overnight her vitals have been stable, she has no specific complaints, she has been ambulating in the room, to the bathroom and tolerating activity well. His labs have been reviewed, white blood cell count is improving and is down to 10.9, hemoglobin 7.9, electrolytes and renal profile are unremarkable, no fever or chills, blood pressure has been stable. Lung sounds revealed a few scattered rhonchi, Objective - Vital Signs Vital signs: Vital Signs Temp 97.8 F 03/21/21 07:42 Pulse 80 03/21/21 07:49 Resp 17 03/21/21 07:42 BP 109/60 03/21/21 07:42 Pulse Ox 96 03/21/21 07:42 Intake & Output 03/20/21 03/21/21 03/21/21 18:59 06:59 18:59 Intake Total 540 250 Balance 540 250 Intake: Oral 540 250 Other: Voiding Method Toilet # Voids 1 3 - Exam GENERAL EXAM: Alert, pleasant, frail-looking 75-year-old white female on room a ir with pulse ox of 97% comfortable in no apparent distress. HEAD: Normocephalic/atraumatic. EYES: Normal reaction of pupils, equal size. Conjunctiva pink, sclera white. NOSE: Clear with pink turbinates. THROAT: No erythema or exudates. NECK: No masses, no JVD, no thyroid enlargement, no adenopathy. CHEST: No chest wall deformity. Symmetrical expansion. Right upper chest MediPort removal sites covered with a dressing LUNGS: Equal air entry with minimal crackles at the bases CVS: Regular rate and rhythm, normal S1 and S2, no gallops, no murmurs, no rubs ABDOMEN: Soft, nontender. No hepatosplenomegaly, normal bowel sounds, no guarding or rigidity. EXTREMITIES: No clubbing, no edema, no cyanosis, 2+ pulses and upper and lower extremities. left AC double-lumen PICC line is in place MUSCULOSKELETAL: Muscle strength and tone normal. SPINE: No scoliosis or deformity SKIN: No rashes CENTRAL NERVOUS SYSTEM: Alert and oriented -3. No focal deficits, tone is normal in all 4 extremities. PSYCHIATRIC: Alert and oriented -3. Appropriate affect. Intact judgment and insight. - Labs CBC & Chem 7: 03/21/21 06:05 03/21/21 06:05 Labs: Abnormal Lab Results - Last 24 Hours (Table) 03/20/21 03/20/21 03/20/21 Range/Units 04:20 11:26 16:37 WBC 12.98 H (4.50-10.00) X 10*3/uL RBC 3.49 L (4.10-5.20) X 10*6/uL Hgb 8.5 L (12.0-15.0) g/dL Hct 29.6 L (37.2-46.3) % MCH 24.4 L (27.0-32.0) pg MCHC 28.7 L (32.0-37.0) g/dL RDW 21.8 H (11.5-14.5) % MPV 9.2 L (9.5-12.2) fL Immature Gran # 0.08 H (0.00-0.04) X 10*3/uL Neutrophils # 9.93 H (1.80-7.70) X 10*3/uL Est GFR (CKD-EPI)AfAm (60.0-200.0) Est GFR (CKD-EPI)NonAf (60.0-200.0) Glucose (70-110) mg/dL POC Glucose (mg/dL) 133 H 102 H (75-99) mg/dL Calcium (8.7-10.3) mg/dL 03/21/21 03/21/21 03/21/21 Range/Units 00:42 05:41 06:05 WBC 10.91 H (4.50-10.00) X 10*3/uL RBC 3.32 L (4.10-5.20) X 10*6/uL Hgb 7.9 L (12.0-15.0) g/dL Hct 27.8 L (37.2-46.3) % MCH 23.8 L (27.0-32.0) pg MCHC 28.4 L (32.0-37.0) g/dL RDW 21.7 H (11.5-14.5) % MPV (9.5-12.2) fL Immature Gran # 0.07 H (0.00-0.04) X 10*3/uL Neutrophils # 7.75 H (1.80-7.70) X 10*3/uL Est GFR (CKD-EPI)AfAm (60.0-200.0) Est GFR (CKD-EPI)NonAf (60.0-200.0) Glucose (70-110) mg/dL POC Glucose (mg/dL) 181 H 165 H (75-99) mg/dL Calcium (8.7-10.3) mg/dL 03/21/21 03/21/21 Range/Units 06:05 06:49 WBC (4.50-10.00) X 10*3/uL RBC (4.10-5.20) X 10*6/uL Hgb (12.0-15.0) g/dL Hct (37.2-46.3) % MCH (27.0-32.0) pg MCHC (32.0-37.0) g/dL RDW (11.5-14.5) % MPV (9.5-12.2) fL Immature Gran # (0.00-0.04) X 10*3/uL Neutrophils # (1.80-7.70) X 10*3/uL Est GFR (CKD-EPI)AfAm 43.1 L (60.0-200.0) Est GFR (CKD-EPI)NonAf 37.2 L (60.0-200.0) Glucose 151 H (70-110) mg/dL POC Glucose (mg/dL) 158 H (75-99) mg/dL Calcium 8.4 L (8.7-10.3) mg/dL Microbiology - Last 24 Hours (Table) 03/14/21 14:56 Blood Culture Gram Stain - Final Blood Blood Culture - Final Lesly parapsilosis 03/18/21 07:30 Blood Culture - Preliminary Blood No Growth after 72 hours 03/17/21 05:26 Blood Culture - Preliminary Blood No Growth after 96 hours Assessment and Plan Plan: Assessment: #1. Acute hypoxic respiratory failure related to possibility of aspiration pneumonia, resolved #2. Known history of MSSA pneumonia as seen on BAL cultures from 02/22/2021 #3. Bacteremia related to Lesly parapsilosis possible source related to MediPort which was removed today on 03/16/2021 #4. History of gastric ulcers status post previous gastrectomy #5. Chronic dysphagia with history of multiple episodes of aspiration pneumonia #6. Chronic TPN infusion for recurrent aspiration pneumonia #7. History of asthmatic bronchitis #8. Chronic pain syndrome #9. Chronic renal failure, stage IV #10. Anxiety and depression Plan: Left before meals PICC line was inserted yesterday, and TPN has been reinitiated Patient is breathing comfortably, maintaining stable O2 saturations on room air Today's labs have been reviewed No new chest x-ray Clinically patient has been stable From pulmonary perspective she stable for discharge home today with antibiotics of ID service's recommendation Outpatient follow-up with Dr. Leyla Grace in the office in 7 days I performed a history & physical examination of the patient and discussed their management with my nurse practitioner, Brittany Garcia. I reviewed the nurse practitioner's note and agree with the documented findings and plan of care. Lung sounds are positive for dim breath sounds throughout the lung calixto. The findings and the impression was discussed with the patient. I attest to the documentation by the nurse practitioner. Time with Patient: Less than 30
[2021-03-21 11:29] LABS: Glucose,Whole Blood 152 mg/dL (75-99)
[2021-03-21] MEDS: LORazepam 0.5 MG TAB PO PRN (11:39)
[2021-03-21] MEDS: ANIDULAFUNGIN 100 MG in SODIUM CHLORIDE 0.9% 100 ML IVPB SCH (14:39)
[2021-03-21 15:44] VITALS: PULSE 86
--- NOTE | 2021-03-21 15:54 | PN ---
PROGRESS NOTE DATE OF SERVICE: 03/21/2021 REASON FOR FOLLOWUP: Candidemia secondary to central line infection. INTERVAL HISTORY: The patient is afebrile. The patient is feeling better. The patient has got a PICC line. The patient denies having any chest pain or shortness of breath or cough. No abdominal pain or diarrhea. PHYSICAL EXAMINATION: Blood pressure 109/60 with a pulse of 78, temperature 97.8. She is 96% on room air. General description is an elderly female lying in bed in no distress. Respiratory system: Unlabored breathing, clear to auscultation anteriorly. Heart S1, S2. Regular rate and rhythm. Abdomen soft, no tenderness. LABS: Hemoglobin is 7.9, white count 10.91. Creatinine is 1.4. Blood culture repeat has been negative. DIAGNOSTIC IMPRESSION AND PLAN: Patient with Lesly parapsilosis candidemia secondary to the central line, which has been discontinued. Blood culture negative. Patient has got a PICC line. Plan at this time is to continue micafungin/anidulafungin for another . That will be 2 from her negative blood cultures and close outpatient followup. Prescription was provided to the case management social worker. MMNATEL / IJN: [id number] /
[2021-03-21 16:33] LABS: Magnesium 2.1 mg/dL (1.5-2.4); Phosphorus 2.9 mg/dL (2.4-5.1)
--- NOTE | 2021-03-21 17:09 | CONS ---
CONSULTATION REASON FOR CONSULT: Renal failure. HISTORY OF PRESENT ILLNESS: The patient is a 75-year-old female who was initially admitted to the hospital on March 11 with mental status changes. She was found to have pneumonia and has been treated with antibiotics. Patient has underlying CKD with previous creatinine about 1.5-1.9 mg/dL, but more recently staying about 1.4-1.6. Etiology is nephrosclerosis. During this admission. Patient's creatinine had been mostly about 1.48, peaked to 1.7 on March 18 and now back down to 1.4. The patient has been started on TPN and renal function has improved post hydration. Blood pressure has been on the lower side with systolic around 120-104 for the last couple of readings. Patient was found to have candidemia with Lesly with blood cultures growing Lesly . The MediPort was removed. However, patient needs TPN and therefore a PICC line was requested. The patient also had aspiration pneumonia this admission. She has just started to eat again. PAST MEDICAL HISTORY: Significant for chronic kidney disease and history of coronary artery disease, asthma, gastroesophageal reflux disease, COPD, history of pancreatitis, spinal stenosis. PAST SURGICAL HISTORY: Back surgery, bowel resection, hysterectomy, laminectomy, diskectomy, significant gastrectomy due to ulcers and part of small bowel resection as well, colonoscopy, EGD. SOCIAL HISTORY: Negative for smoking, drug abuse or alcohol abuse. MEDICATIONS: Medications prior to admission included iron, Synthroid, calcitriol, BuSpar, potassium, Protonix, Wellbutrin, Lasix, Folic acid, Claritin, vitamin B1, Kefzol. The patient is also maintained on TPN prior to admission. ALLERGIES: Include dust, molds, and Prolia. PHYSICAL EXAMINATION: Patient is comfortable, awake. She is not in any acute distress. Blood pressure is 147/78, heart rate 85 per minute. She is afebrile. Examination of the HEART S1, S2. Examination of the LUNGS, bilateral breath sounds are heard. ABDOMEN is soft, nontender. Examination of lower EXTREMITIES shows no significant edema. 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 LAB: Show sodium of 135, potassium 4.1, chloride 102, BUN is 24.3 and creatinine 1.4, hemoglobin 7.9 g/dL. ASSESSMENT: 1. Chronic kidney disease NKF stage 3, mostly 3B with creatinine as low as 1.5-1.4 today. Creatinine down to 1.4 post IV hydration once TPN was restarted. 2. Aspiration pneumonia, status post antibiotics. 3. Candidemia with blood cultures growing Lesly . Being followed by Infectious Disease. 4. CKD mineral bone disorder, maintained on calcitriol. PLAN: Continue antibiotics and antifungal treatment as per Infectious Disease. Continue the Calcitriol. Will follow up as outpatient. Thank you for this consultation. The patient can be discharged from nephrology standpoint. MMNATEL / SANIYAN: [id number] /
== END 2021-03-21 16:14 | disposition home health service (06) | DRG 314 ==
LOC: EC 13:35 → 4SSUR 15:15
PROVIDERS: ADMIT Internal Medicine; ATTEND Internal Medicine
PROC: 3E0436Z Introduction of Nutritional Substance into Central Vein, Percutaneous Approach (ICD-10-PCS; principal; 2021-03-12)
PROC: 02HV33Z Insertion of Infusion Device into Superior Vena Cava, Percutaneous Approach (ICD-10-PCS; 2021-03-20)
DX: T80.211A Bloodstream infection due to central venous catheter, initial encounter (principal); J96.01 Acute respiratory failure with hypoxia; B37.7 Candidal sepsis; J69.0 Pneumonitis due to inhalation of food and vomit; G93.41 Metabolic encephalopathy; B37.89 Other sites of candidiasis; E44.1 Mild protein-calorie malnutrition; Z68.1 Body mass index [BMI] 19.9 or less, adult; J44.1 Chronic obstructive pulmonary disease with (acute) exacerbation; E87.1 Hypo-osmolality and hyponatremia; N18.32 Chronic kidney disease, stage 3b; Z20.822 Contact with and (suspected) exposure to COVID-19; E83.9 Disorder of mineral metabolism, unspecified; R13.10 Dysphagia, unspecified; I12.9 Hypertensive chronic kidney disease with stage 1 through stage 4 chronic kidney disease, or unspecified chronic kidney disease; G89.4 Chronic pain syndrome; K59.00 Constipation, unspecified; M48.00 Spinal stenosis, site unspecified; F32.A Depression, unspecified; I25.10 Atherosclerotic heart disease of native coronary artery without angina pectoris; F41.0 Panic disorder [episodic paroxysmal anxiety]; E07.9 Disorder of thyroid, unspecified; K21.9 Gastro-esophageal reflux disease without esophagitis; G43.909 Migraine, unspecified, not intractable, without status migrainosus; M47.9 Spondylosis, unspecified; M19.09 Primary osteoarthritis, other specified site; Z79.890 Hormone replacement therapy; Z79.891 Long term (current) use of opiate analgesic; Z79.899 Other long term (current) drug therapy; Z87.01 Personal history of pneumonia (recurrent); Z90.3 Acquired absence of stomach [part of]; Z87.11 Personal history of peptic ulcer disease; Z87.19 Personal history of other diseases of the digestive system; Z87.81 Personal history of (healed) traumatic fracture; Z90.710 Acquired absence of both cervix and uterus; Z90.49 Acquired absence of other specified parts of digestive tract; Z87.42 Personal history of other diseases of the female genital tract; Z87.39 Personal history of other diseases of the musculoskeletal system and connective tissue; Z98.890 Other specified postprocedural states; Z96.642 Presence of left artificial hip joint; Z86.73 Personal history of transient ischemic attack (TIA), and cerebral infarction without residual deficits; Z71.3 Dietary counseling and surveillance; Y84.8 Other medical procedures as the cause of abnormal reaction of the patient, or of later complication, without mention of misadventure at the time of the procedure; Z88.8 Allergy status to other drugs, medicaments and biological substances; Z91.048 Other nonmedicinal substance allergy status; Z82.49 Family history of ischemic heart disease and other diseases of the circulatory system; Z80.51 Family history of malignant neoplasm of kidney; Z80.52 Family history of malignant neoplasm of bladder; Z83.1 Family history of other infectious and parasitic diseases; Z80.41 Family history of malignant neoplasm of ovary
CPT/HCPCS: 36415; 36573; 70450; 71045; 80048; 80053; 81001; 83540; 83550; 83605; 83735; 84100; 84478; 84484; 85025; 85610; 85730; 87040; 87070; 87635; 93005; 94640; 94760; 96361; 96365; 96366; 96367; 99285

== ENCOUNTER 2021-04-07 13:14 | Inpatient (IN) | payer MEDICARE, OTHER ==
[2021-04-07] MEDS ORDERED: SODIUM CHLORIDE 0.9% 500 ML 500 ML IV ONE (14:02)
[2021-04-07 14:26] LABS: Anisocytosis Slight; Basophils # (A) 0.1 k/uL (0-0.2); Basophils % (A) 0 %; Eosinophils # (A) 0.2 k/uL (0-0.7); Eosinophils % (A) 1 %; HCT 29.9 % (34.0-46.0); HGB 8.7 gm/dL (11.4-16.0); Hypochromasia Marked; Lymphocytes # (A) 1.3 k/uL (1.0-4.8); Lymphocytes % (A) 11 %; MCH 25.1 pg (25.0-35.0); MCHC 28.9 g/dL (31.0-37.0); Monocytes # (A) 0.6 k/uL (0-1.0); Monocytes % (A) 5 %; Neutrophils # (A) 10.1 k/uL (1.3-7.7); Neutrophils % (A) 82 %; Platelet Count 504 k/uL (150-450); RBC 3.45 m/uL (3.80-5.40); RDW 18.9 % (11.5-15.5); WBC 12.4 k/uL (3.8-10.6)
[2021-04-07 14:34] LABS: MCV 86.7 fL (80.0-100.0)
[2021-04-07 14:36] LABS: Albumin 3.3 g/dL (3.5-5.0); Calcium 9.1 mg/dL (8.4-10.2); Potassium 5.7 mmol/L (3.5-5.1); Total Bilirubin 0.3 mg/dL (0.2-1.3)
--- NOTE | 2021-04-07 14:54 | XR ---
EXAMINATION TYPE: XR chest 2V DATE OF EXAM: 04/07/2021 COMPARISON: 04/04/2021 HISTORY: Cough. Pneumonia. TECHNIQUE: 2 views FINDINGS: There is dense consolidation left mid lung field that measures 8 x 5 cm. There is similar a jo of less dense consolidation right mid lung field measuring 6 x 4 cm. Heart size is normal. There is no heart failure. There is left subclavian catheter with tip in the superior vena cava. There is n o definite pleural effusion. Mediastinum appears normal. IMPRESSION: Bilateral pneumonic consolidation shows progression compared to previous exams back to . The possibility of tumor should be considered. No heart failure.
[2021-04-07] MEDS ORDERED: BUTALB/APAP/CAFF 50-325-40MG TAB PO STA (15:23)
[2021-04-07] MEDS ORDERED: NALOXONE 0.4 MG/ML 1 ML VIAL IV PRN (16:11)
--- NOTE | 2021-04-07 16:11 | ED ---
General Adult HPI - General Chief complaint: Weakness Stated complaint: Med Refill Time Seen by Provider: 04/07/21 13:37 Source: patient, RN notes reviewed Mode of arrival: ambulatory Limitations: no limitations - History of Present Illness Initial comments: 76-year-old female presents emergency Department with chief complaints of general is weakness, bilateral pneumonia, unable to receive medications. Patient was recent hospital for similar reasons. She states she followed up with [facility] couple days ago was supposed to receive IV infusion antibiotics states that it was never received, they have not set up at her house. Patient states she does not have her prescription medications as medication packets never arrived. Patient states that she's having increasing shortness breath, generalized weakness. Patient states that she stood chills no reported fever. - Related Data Home Medications Medication Instructions Recorded Confirmed Ferrous Sulfate [Iron (65 MG 325 mg PO DAILY 11/06/15 03/11/21 Elemental)] Levothyroxine Sodium [Synthroid] 88 mcg PO DAILY 06/07/19 03/11/21 calcitrioL [Calcitriol] 1 mcg PO MOWEFR 06/07/19 03/11/21 busPIRone HCL [Buspar] 30 mg PO BID 04/14/20 03/11/21 Potassium Chloride ER [K-Dur 10] 30 meq PO DAILY@1200 04/18/20 03/11/21 hydrOXYzine pamoate [hydrOXYzine 25 mg PO TID 04/18/20 03/11/21 PAMOATE] Butalb/APAP/Caff 50-325-40Mg 1 tab PO BID PRN 06/30/20 03/11/21 [Fioricet 50-325-40] buPROPion XL [Wellbutrin XL] 150 mg PO HS 11/04/20 03/11/21 HYDROcodone/APAP 10-325MG [[place] 1 tab PO BID PRN 12/13/20 03/11/21 10-325] Tpn 1 each IV DAILY 02/20/21 03/11/21 buPROPion XL [Wellbutrin XL] 300 mg PO QAM 02/20/21 03/11/21 Folic Acid 1 mg PO DAILY 03/11/21 03/11/21 Loratadine [Claritin] 10 mg PO DAILY 03/11/21 03/11/21 Thiamine HCl [Vitamin B-1] 100 mg PO DAILY 03/11/21 03/11/21 Previous Rx's Medication Instructions Recorded Pantoprazole Sodium [Protonix] 40 mg PO BID 30 Days #60 tablet. 04/27/20 Furosemide [Lasix] 20 mg PO DAILY #6 tab 12/13/20 fentaNYL 75MCG/HR PATCH [Duragesic 1 patch TRANSDERM Q72H 3 Days #3 12/13/20 75MCG/HR] patch Mirtazapine [Remeron] 15 mg PO HS #30 tab 03/21/21 Allergies Allergy/AdvReac Type Severity Reaction Status Date / Time denosumab [From Prolia] Allergy SEVERE Verified 04/07/21 13:38 CALCIUM LOSS DUST Allergy Itching Uncoded 04/07/21 13:38 MOLDS Allergy Itching Uncoded 04/07/21 13:38 Review of Systems ROS Statement: Those systems with pertinent positive or pertinent negative responses have been documented in the HPI. ROS Other: All systems not noted in ROS Statement are negative. 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 History of Any Multi-Drug Resistant Organisms: None Reported Past Surgical History: Back Surgery, Bowel Resection, Hysterectomy, Joint Replacement Additional Past Surgical History / Comment(s): LOWER BACK SURGERY lamenectomy/discetomy then had a revison of that sx. 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, [place] sx d/t broken nose, colonoscopy/egd, PAIN CLINIC PROCEDURES, PORT A CATH INSERTION, LT ADEOLA, Past Anesthesia/Blood Transfusion Reactions: No Reported Reaction Additional Past Anesthesia/Blood Transfusion Reaction / Comment(s): PT RECIEVED BLOOD TRANSFUSIONS AFTER STOMACH SURGERY Past Psychological History: Anxiety, Depression, Panic Disorder Smoking Status: Never smoker Past Alcohol Use History: None Reported Past Drug Use History: None Reported - Past Family History Father Family Medical History: Cancer, Coronary Artery Disease (CAD) Additional Family Medical History / Comment(s): FATHER HAD BLADDER AND KIDNEY CANCER. FATHER HAD TB WHEN HE WAS A CHILD .FATHER AT AGE 87. Mother Family Medical History: Cancer Additional Family Medical History / Comment(s): MOTHER AT AGE 58 OF OVARIAN CANCER. General Exam Limitations: no limitations General appearance: alert, in no apparent distress Head exam: Present: atraumatic, normocephalic, normal inspection Eye exam: Present: normal appearance, PERRL, EOMI. Absent: scleral icterus, conjunctival injection, periorbital swelling ENT exam: Present: normal exam, normal oropharynx, mucous membranes moist Neck exam: Present: normal inspection, full ROM. Absent: tenderness, meningismu s, lymphadenopathy Respiratory exam: Present: rhonchi, decreased breath sounds. Absent: normal lung sounds bilaterally, respiratory distress, wheezes, rales, stridor Cardiovascular Exam: Present: regular rate, normal rhythm, normal heart sounds. Absent: systolic murmur, diastolic murmur, rubs, gallop, clicks GI/Abdominal exam: Present: soft, normal bowel sounds. Absent: distended, tenderness, guarding, rebound, rigid Course Vital Signs 04/07/21 13:34 Temperature 98.6 F Pulse Rate 105 H Respiratory 20 Rate Blood Pressure 158/79 O2 Sat by Pulse 100 Oximetry Medical Decision Making - Medical Decision Making Case discussed with Dr. broussard accepts admission will consult pulmonary for a ntibiotic treatment - Lab Data Result diagrams: 04/07/21 14:19 04/07/21 14:19 Lab Results 04/07/21 04/07/21 Range/Units 14:19 14:19 WBC 12.4 H (3.8-10.6) k/uL RBC 3.45 L (3.80-5.40) m/uL Hgb 8.7 L (11.4-16.0) gm/dL Hct 29.9 L (34.0-46.0) % MCV 86.7 D (80.0-100.0) fL MCH 25.1 (25.0-35.0) pg MCHC 28.9 L (31.0-37.0) g/dL RDW 18.9 H (11.5-15.5) % Plt Count 504 H (150-450) k/uL MPV 7.0 Neutrophils % 82 % Lymphocytes % 11 % Monocytes % 5 % Eosinophils % 1 % Basophils % 0 % Neutrophils # 10.1 H (1.3-7.7) k/uL Lymphocytes # 1.3 (1.0-4.8) k/uL Monocytes # 0.6 (0-1.0) k/uL Eosinophils # 0.2 (0-0.7) k/uL Basophils # 0.1 (0-0.2) k/uL Hypochromasia Marked Anisocytosis Slight Sodium 133 L (137-145) mmol/L Potassium 5.7 H (3.5-5.1) mmol/L Chloride 100 (98-107) mmol/L Carbon Dioxide 23 (22-30) mmol/L Anion Gap 10 mmol/L BUN 29 H (7-17) mg/dL Creatinine 1.35 H (0.52-1.04) mg/dL Est GFR (CKD-EPI)AfAm 45 (>60 ml/min/1.73 sqM) Est GFR (CKD-EPI)NonAf 39 (>60 ml/min/1.73 sqM) Glucose 97 (74-99) mg/dL Calcium 9.1 (8.4-10.2) mg/dL Total Bilirubin 0.3 (0.2-1.3) mg/dL AST 25 (14-36) U/L ALT 13 (4-34) U/L Alkaline Phosphatase 295 H (38-126) U/L Total Protein 7.0 (6.3-8.2) g/dL Albumin 3.3 L (3.5-5.0) g/dL Disposition Clinical Impression: Bilateral pneumonia, Failure of outpatient treatment, Debility, On total parenteral nutrition (TPN), Chronic pain Disposition: ADMITTED IP TO THIS [facility] Condition: Fair Referrals: Ale Eli MD [Primary Care Provider] - 1-2 days
[2021-04-07] MEDS ORDERED: PIPERACILLIN-TAZOBACTAM 3.375 GM in SODIUM CHLORIDE 0.9% 100 ML IVPB STA (16:16)
[2021-04-07] MEDS: HYDROcodone/APAP 10-325MG 1 EACH TAB PO PRN (17:53)
[2021-04-07] MEDS: BUTALB/APAP/CAFF 50-325-40MG TAB PO PRN (20:02)
[2021-04-07] MEDS: buPROPion XL 150 MG TAB.ER.24H PO SCH (21:38)
[2021-04-07] MEDS: MIRTAZAPINE 15 MG TAB PO SCH (21:38)
[2021-04-07] MEDS: busPIRone HCl 10 MG TAB PO SCH (21:38)
[2021-04-07] MEDS: PANTOPRAZOLE 40 MG TABLET PO SCH (21:38)
[2021-04-07] MEDS: hydrOXYzine pamoate 25 MG CAP PO SCH (21:38)
[2021-04-08] MEDS: HYDROcodone/APAP 10-325MG 1 EACH TAB PO PRN ×2 (03:26→15:13)
[2021-04-08] MEDS: hydrOXYzine pamoate 25 MG CAP PO SCH ×3 (08:04→21:19)
[2021-04-08] MEDS: PANTOPRAZOLE 40 MG TABLET PO SCH ×2 (08:04→21:18)
[2021-04-08] MEDS: busPIRone HCl 10 MG TAB PO SCH ×2 (08:04→21:19)
[2021-04-08] MEDS: THIAMINE 100 MG TAB PO SCH (08:05)
[2021-04-08] MEDS: FERROUS SULFATE 325 MG TAB PO SCH (08:05)
[2021-04-08] MEDS: FOLIC ACID 1 MG TAB PO SCH (08:05)
[2021-04-08] MEDS: LORATADINE 10 MG TAB PO SCH (08:05)
[2021-04-08] MEDS: BUTALB/APAP/CAFF 50-325-40MG TAB PO PRN ×2 (08:05→19:55)
[2021-04-08] MEDS: FUROSEMIDE 20 MG TAB PO SCH (08:05)
[2021-04-08] MEDS: buPROPion XL 300 MG TAB.ER.24H PO SCH (08:06)
[2021-04-08] MEDS ORDERED: TPN IV SCH (09:00)
[2021-04-08] MEDS: PIPERACILLIN-TAZOBACTAM 3.375 GM in SODIUM CHLORIDE 0.9% 100 ML IVPB SCH ×3 (09:23→21:20)
--- NOTE | 2021-04-08 09:24 | P.HPIM ---
History of Present Illness H&P Date: 04/08/21 Louise Sutton, is a 76 year old male who presented to [facility] emergency room with a chief complaint of generalized weakness She was evaluated in the emergency room vital examination on presentation revealed a temperature of 98.6 pulse 105 respiration 20 blood pressure 158/79 pulse ox 100% on room air Laboratory data revealed a white blood count of 12.4 hemoglobin 8.7 platelet c ount 504 sodium 133 potassium 5.7 BUN 29 creatinine 1.35 alkaline phosphatase 295 albumin 3.3 COVID-19 PCR was negative Testing in the emergency room chest x-ray done in the emergency room revealed b ilateral pneumonic consolidation with progression from previous exam Patient was admitted to medical floor for further evaluation and treatment. 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 History of Any Multi-Drug Resistant Organisms: None Reported Past Surgical History: Back Surgery, Bowel Resection, Hysterectomy, Joint Replacement Additional Past Surgical History / Comment(s): LOWER BACK SURGERY lamenectomy/discetomy then had a revison of that sx. 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, nasal sx d/t broken nose, colonoscopy/egd, PAIN CLINIC PROCEDURES, PORT A CATH INSERTION, LT ADEOLA, Past Anesthesia/Blood Transfusion Reactions: No Reported Reaction Additional Past Anesthesia/Blood Transfusion Reaction / Comment(s): PT RECIEVED BLOOD TRANSFUSIONS AFTER STOMACH SURGERY Smoking Status: Never smoker - Past Family History Father Family Medical History: Cancer, Coronary Artery Disease (CAD) Additional Family Medical History / Comment(s): FATHER HAD BLADDER AND KIDNEY CANCER. FATHER HAD TB WHEN HE WAS A CHILD .FATHER AT AGE 87. Mother Family Medical History: Cancer Additional Family Medical History / Comment(s): MOTHER AT AGE 58 OF OVARIAN CANCER. Medications and Allergies Home Medications Medication Instructions Recorded Confirmed Type Ferrous Sulfate [Iron (65 MG 325 mg PO DAILY@1200 11/06/15 04/07/21 History Elemental)] Levothyroxine Sodium [Synthroid] 88 mcg PO DAILY 06/07/19 04/07/21 History calcitrioL [Calcitriol] 1 mcg PO MOWEFR 06/07/19 04/07/21 History busPIRone HCL [Buspar] 30 mg PO BID 04/14/20 04/07/21 History Potassium Chloride ER [K-Dur 10] 30 meq PO DAILY@1200 04/18/20 04/07/21 History hydrOXYzine pamoate [hydrOXYzine 25 mg PO TID 04/18/20 04/07/21 History PAMOATE] Pantoprazole Sodium [Protonix] 40 mg PO BID 30 Days #60 tablet. 04/27/20 04/07/21 Rx Butalb/APAP/Caff 50-325-40Mg 1 tab PO BID PRN 06/30/20 04/07/21 History [Fioricet 50-325-40] buPROPion XL [Wellbutrin XL] 150 mg PO DAILY 11/04/20 04/07/21 History Furosemide [Lasix] 20 mg PO DAILY #6 tab 12/13/20 04/07/21 Rx HYDROcodone/APAP 10-325MG [[place] 1 tab PO BID PRN 12/13/20 04/07/21 History 10-325] fentaNYL 75MCG/HR PATCH [Duragesic 1 patch TRANSDERM Q72H 3 Days #3 12/13/20 04/07/21 Rx 75MCG/HR] patch Tpn 1 dose IV DAILY 02/20/21 04/07/21 History buPROPion XL [Wellbutrin XL] 300 mg PO DAILY 02/20/21 04/07/21 History Albuterol Sulfate [Albuterol 2 puff PO RT-Q6H PRN 04/07/21 04/07/21 History Sulfate Hfa] Budesonide/Formoterol Fumarate 2 puff INHALATION RT-BID 04/07/21 04/07/21 History [Symbicort 160-4.5 Mcg Inhaler] Fluticasone Nasal [place] [Flonase 2 spray EA NOSTRIL BID 04/07/21 04/07/21 History Nasal [place]] Iv Antibiotic (Unknown) 1 dose IV DIRECTED 04/07/21 04/07/21 History Loratadine [Claritin] 10 mg PO DAILY 04/07/21 04/07/21 History Mirtazapine [Remeron] 45 mg PO HS 04/07/21 04/07/21 History Allergies Allergy/AdvReac Type Severity Reaction Status Date / Time denosumab [From Prolia] Allergy SEVERE Verified 04/07/21 17:05 CALCIUM LOSS DUST Allergy Itching Uncoded 04/07/21 17:05 MOLDS Allergy Itching Uncoded 04/07/21 17:05 Physical Exam Vitals: Vital Signs Temp Pulse Pulse Resp BP BP Pulse Ox 04/08/21 04:28 98.8 F 88 18 147/75 100 04/07/21 20:00 98.9 F 87 18 153/71 98 04/07/21 13:34 98.6 F 105 H 20 158/79 100 Intake and Output 04/07/21 04/08/21 04/08/21 22:59 06:59 14:59 Intake Total 325 Balance 325 Intake: Oral 325 Other: Voiding Method Toilet Toilet # Voids 2 Weight 41.73 kg In general patient is alert and oriented x 3 in no distress HEENT head normocephalic and atraumatic Neck is supple no JVD no goiter no lymphadenopathy no carotid bruit Chest examination reveals a crackles in both bases no wheezing Cardiac exam reveals regular heart sounds S1 and S2 no gallops no murmurs Abdomen is soft nontender no organomegaly with normal bowel sounds Extremity exam reveals no edema no cyanosis or clubbing Neurological examination reveals no gross focal deficits Results CBC & Chem 7: 04/07/21 14:19 04/07/21 14:19 Labs: Abnormal Lab Results - Last 24 Hours (Table) 04/07/21 04/07/21 Range/Units 14:19 14:19 WBC 12.4 H (3.8-10.6) k/uL RBC 3.45 L (3.80-5.40) m/uL Hgb 8.7 L (11.4-16.0) gm/dL Hct 29.9 L (34.0-46.0) % MCHC 28.9 L (31.0-37.0) g/dL RDW 18.9 H (11.5-15.5) % Plt Count 504 H (150-450) k/uL Neutrophils # 10.1 H (1.3-7.7) k/uL Sodium 133 L (137-145) mmol/L Potassium 5.7 H (3.5-5.1) mmol/L BUN 29 H (7-17) mg/dL Creatinine 1.35 H (0.52-1.04) mg/dL Alkaline Phosphatase 295 H (38-126) U/L Albumin 3.3 L (3.5-5.0) g/dL Thrombosis Risk Factor Assmnt - Choose All That Apply Any of the Below Risk Factors Present?: Yes Each Factor Represents 1 point: Acute VA Thrombosis Risk Factor Assessment Total Risk Factor Score: 1 Thrombosis Risk Factor Assessment Level: Low Risk Assessment and Plan Plan: Bilateral pneumonia, patient has history of recurrent episodes of pneumonia, e valuation in the past revealed aspiration pneumonia, patient is currently on TPN Generalized weakness, chronic but worsening recently, Will consult physical therapy and occupational therapy Underlying history of hypothyroidism Underlying history of osteoarthritis with chronic pain syndrome maintained on narcotics at home Underlying history of chronic anemia Underlying history of migraine headache Previous history of pancreatitis For DVT prophylaxis we will use Lovenox, for GI prophylaxis IV protonix At this time patient is admitted to medical floor Home medications reviewed and reordered Consultation for pulmonary was initiated for IV antibiotics Consultation for dietitian initiated for continuation of TPN Prognosis is guarded will follow closely
[2021-04-08] MEDS ORDERED: HYDROcodone/APAP 10-325MG 1 EACH TAB PO SCH (09:45)
[2021-04-08] MEDS: ENOXAPARIN 30 MG/0.3 ML SYRINGE SQ SCH (09:51)
[2021-04-08] MEDS: POTASSIUM CHLORIDE ER 10 MEQ TAB.ER.PRT PO SCH (11:44)
[2021-04-08 14:01] VITALS: BMI 16.8
[2021-04-08 16:05] LABS: ALT 12 U/L (4-34); AST 20 U/L (14-36); African American GFR (CKD) 38 (>60 ml/min/1.73 sqM); Albumin 3.1 g/dL (3.5-5.0); Albumin/Globulin Ratio 0.9; Alkaline Phosphatase 306 U/L (38-126); Anion Gap 9 mmol/L; Blood Urea Nitrogen 25 mg/dL (7-17); Calcium 8.8 mg/dL (8.4-10.2); Carbon Dioxide 24 mmol/L (22-30); Chloride 102 mmol/L (98-107); Globulin 3.3 g/dL; Glucose 57 mg/dL (74-99); Magnesium 2.2 mg/dL (1.6-2.3); Non-African American GFR(CKD) 33 (>60 ml/min/1.73 sqM); Phosphorus 2.8 mg/dL (2.5-4.5); Potassium 5.4 mmol/L (3.5-5.1); Sodium 135 mmol/L (137-145); Total Bilirubin 0.2 mg/dL (0.2-1.3); Total Protein 6.4 g/dL (6.3-8.2)
--- NOTE | 2021-04-08 18:14 | P.CNPUL ---
History of Present Illness Consult date: 04/08/21 Reason for consult: pneumonia History of present illness: This is a pleasant 76-year-old female patient who was hospitalized because of persistent pneumonia. The patient is well-known to us. The patient has chronic dysphagia and multiple episodes of aspiration and the patient has previous gastric ulcers for which she has undergone previous gastrectomy. She receives TPN for nutritional support and she is to have a MediPort and based on the recent systemic candidiasis, the patient had a MediPort removed on 03/16/2021 and the patient was given a course of antifungal agents which she completed on outpatient basis. She was seen by our nurse practitioner in the office and she was felt to have ongoing pneumonia and she was asked to receive some IV antibiotics and antibiotics did not arrive and the patient was quite concerning for that reason she end up in the emergency. Currently she is on room air oxygen. She has a dry cough. No hemoptysis. No pleurisy. She does have some chronic discomfort in her chest. White cell count is not elevated. Her white cell count is at 12.4 with 8.7. And a platelet count of 504. Creatinine is at 1.56 with a mean of 25 consistent with chronic kidney disease and the sodium level is at 135. Hematocrit COVID 19 testing was negative. I reviewed the chest x-ray that shows evidence of chronic consolidation in the left mid lung measuring 8 x 5 cm in size and there is a similar area in the right midlung area measuring 6 x 4 cm in size. These are chronic and there is been some progression compared to the previous exam from 07/01/2020. The patient was started on IV Zosyn. Her most recent bronchioloalveolar lavage from 02/22/2021 showed staph aureus and her most recent CAT scan of the chest that was done on 01/28/2021 showed chronic right midlung nodular scarring with volume loss. The patient also had a tiny left-sided pleural effusion and left lung nodular scarring demonstrated in the mid and the lower lung calixto. For now, the patient is a PICC line in the left upper extremity Review of Systems Constitutional: Denies chills, Denies fever Eyes: denies blurred vision, denies pain Ears, nose, mouth and throat: Denies headache, Denies sore throat Cardiovascular: Denies chest pain, Denies shortness of breath Respiratory: Reports pain on inspiration, Reports respiratory infections, Denies cough Gastrointestinal: Denies abdominal pain, Denies diarrhea, Denies nausea, Denies vomiting Genitourinary: Denies dysuria, Denies hematuria Musculoskeletal: Denies myalgias Integumentary: Denies pruritus, Denies rash Neurological: Denies numbness, Denies weakness Psychiatric: Denies anxiety, Denies depression Endocrine: Denies fatigue, Denies weight change Past Medical History Past Medical History: Asthma, COPD, GERD/Reflux, Memory Impairment, Respiratory Disorder, Thyroid Disorder Additional Past Medical History / Comment(s): 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 History of Any Multi-Drug Resistant Organisms: None Reported Past Surgical History: Back Surgery, Bowel Resection, Hysterectomy, Joint Replacement Additional Past Surgical History / Comment(s): LOWER BACK SURGERY lamenectomy/discetomy then had a revison of that sx. 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, nasal sx d/t broken nose, colonoscopy/egd, PAIN CLINIC PROCEDURES, PORT A CATH INSERTION, LT ADEOLA, Past Anesthesia/Blood Transfusion Reactions: No Reported Reaction Additional Past Anesthesia/Blood Transfusion Reaction / Comment(s): PT RECIEVED BLOOD TRANSFUSIONS AFTER STOMACH SURGERY Smoking Status: Never smoker - Past Family History Father Family Medical History: Cancer, Coronary Artery Disease (CAD) Additional Family Medical History / Comment(s): FATHER HAD BLADDER AND KIDNEY CANCER. FATHER HAD TB WHEN HE WAS A CHILD .FATHER AT AGE 87. Mother Family Medical History: Cancer Additional Family Medical History / Comment(s): MOTHER AT AGE 58 OF OVARIAN CANCER. Medications and Allergies Home Medications Medication Instructions Recorded Confirmed Type Ferrous Sulfate [Iron (65 MG 325 mg PO DAILY@1200 11/06/15 04/07/21 History Elemental)] Levothyroxine Sodium [Synthroid] 88 mcg PO DAILY 06/07/19 04/07/21 History calcitrioL [Calcitriol] 1 mcg PO MOWEFR 06/07/19 04/07/21 History busPIRone HCL [Buspar] 30 mg PO BID 04/14/20 04/07/21 History Potassium Chloride ER [K-Dur 10] 30 meq PO DAILY@1200 04/18/20 04/07/21 History hydrOXYzine pamoate [hydrOXYzine 25 mg PO TID 04/18/20 04/07/21 History PAMOATE] Pantoprazole Sodium [Protonix] 40 mg PO BID 30 Days #60 tablet. 04/27/20 04/07/21 Rx Butalb/APAP/Caff 50-325-40Mg 1 tab PO BID PRN 06/30/20 04/07/21 History [Fioricet 50-325-40] buPROPion XL [Wellbutrin XL] 150 mg PO DAILY 11/04/20 04/07/21 History Furosemide [Lasix] 20 mg PO DAILY #6 tab 12/13/20 04/07/21 Rx HYDROcodone/APAP 10-325MG [[place] 1 tab PO BID PRN 12/13/20 04/07/21 History 10-325] fentaNYL 75MCG/HR PATCH [Duragesic 1 patch TRANSDERM Q72H 3 Days #3 12/13/20 04/07/21 Rx 75MCG/HR] patch Tpn 1 dose IV DAILY 02/20/21 04/07/21 History buPROPion XL [Wellbutrin XL] 300 mg PO DAILY 02/20/21 04/07/21 History Albuterol Sulfate [Albuterol 2 puff PO RT-Q6H PRN 04/07/21 04/07/21 History Sulfate Hfa] Budesonide/Formoterol Fumarate 2 puff INHALATION RT-BID 04/07/21 04/07/21 History [Symbicort 160-4.5 Mcg Inhaler] Fluticasone Nasal [place] [Flonase 2 spray EA NOSTRIL BID 04/07/21 04/07/21 History Nasal [place]] Iv Antibiotic (Unknown) 1 dose IV DIRECTED 04/07/21 04/07/21 History Loratadine [Claritin] 10 mg PO DAILY 04/07/21 04/07/21 History Mirtazapine [Remeron] 45 mg PO HS 04/07/21 04/07/21 History Allergies Allergy/AdvReac Type Severity Reaction Status Date / Time denosumab [From Prolia] Allergy SEVERE Verified 04/07/21 17:05 CALCIUM LOSS DUST Allergy Itching Uncoded 04/07/21 17:05 MOLDS Allergy Itching Uncoded 04/07/21 17:05 Physical Exam Vitals: Vital Signs Temp Pulse Resp BP Pulse Ox 04/08/21 11:23 98.6 F 90 16 122/67 97 04/08/21 04:28 98.8 F 88 18 147/75 100 04/07/21 20:00 98.9 F 87 18 153/71 98 Intake and Output 04/08/21 04/08/21 04/08/21 06:59 14:59 22:59 Intake Total 325 Balance 325 Intake: Oral 325 Other: Voiding Method Toilet # Voids 2 2 Weight 41.73 kg GENERAL EXAM: Alert, very pleasant 75-year-old female patient, frail, on room air, comfortable in no apparent distress. HEAD: Normocephalic. EYES: Normal reaction of pupils, equal size. NOSE: Clear with pink turbinates. THROAT: No erythema or exudates. NECK: No masses, no JVD. CHEST: No chest wall deformity. Right subclavian Mediport in place. LUNGS: Equal air entry with bilateral scattered rhonchi more so on the left. CVS: S1 and S2 normal with no audible murmur, regular rhythm. ABDOMEN: No hepatosplenomegaly, normal bowel sounds, no guarding or rigidity. SPINE: No scoliosis or deformity SKIN: No rashes CENTRAL NERVOUS SYSTEM: No focal deficits, tone is normal in all 4 extremities. EXTREMITIES: There is no peripheral edema. No clubbing, no cyanosis. Peripheral pulses are intact. Results - Laboratory Findings CBC and BMP: 04/07/21 14:19 04/08/21 15:00 Abnormal lab findings: Abnormal Labs 04/07/21 04/07/21 04/08/21 14:19 14:19 15:00 WBC 12.4 H RBC 3.45 L Hgb 8.7 L Hct 29.9 L MCHC 28.9 L RDW 18.9 H Plt Count 504 H Neutrophils # 10.1 H Sodium 133 L 135 L Potassium 5.7 H 5.4 H BUN 29 H 25 H Creatinine 1.35 H 1.56 H Glucose 57 L Alkaline Phosphatase 295 H 306 H Albumin 3.3 L 3.1 L - Diagnostic Findings Chest x-ray: image reviewed Assessment and Plan Plan: #1. Bilateral upper lobe consolidation chronic, likely a sequelae of a previous infection. A superinfection or ongoing active infection is felt to be unlikely were doubtful at this stage. The patient is currently on room air oxygen. No significant leukocytosis. A follow-up CAT scan will be ordered to investigate this abnormality further. The patient is quite comfortable and hemodynamically stable at this point in time. #2. Known history of MSSA pneumonia as seen on BAL cultures from 02/22/2021 #3. Systemic candidemia secondary to Lesly parapsilosis possible source related to MediPort which was removed today on 03/16/2021, and the patient continues to have a PICC line. The patient completed antifungal an outpatient basis #4. History of gastric ulcers status post previous gastrectomy #5. Chronic dysphagia with history of multiple episodes of aspiration pneumonia #6. Chronic TPN infusion for recurrent aspiration pneumonia #7. History of asthmatic bronchitis #8. Chronic pain syndrome #9. Chronic renal failure, stage IV #10. Anxiety and depression Plan: Check pro calcitonin level Repeat a noncontrast CAT scan of the chest Will stop all antibiotics of the CAT scan findings are stable Keep the patient on room air oxygen for now and resume medications. We'll continue to follow. We'll continue TPN for nutritional support. Home medication will be resumed. Sounds got
--- NOTE | 2021-04-08 20:31 | CT ---
EXAMINATION TYPE: CT chest wo con DATE OF EXAM: 04/08/2021 COMPARISON: 01/28/2021 HISTORY: bilateral pneumonia CT DLP: 109.8 mGycm Automated exposure control for dose reduction was used. Images obtained from the thoracic inlet to the diaphragm without contrast. There is extensive patchy airspace consolidation in the mid and lower lung calixto. There are multiple somewhat rounded masslike densities that measure up to 4 cm. There is cavitating infiltrate in the r ight upper lobe posteriorly. This area measures approximately 5 x 3.5 cm. Heart size is normal. There is no pericardial effusion. There is mild left pleural effusion. There are clips from gastric surger y. There is some spurring in the thoracic spine. Sternum is intact. There is no compression fracture. Upper abdominal soft tissues are intact. There is cavitating infiltrate in the left upper lobe later ally. This measures 3.5 cm. IMPRESSION: Cavitating infiltrates and extensive patchy infiltrate which is worse than last exam. Tumor not exclu ded.
[2021-04-08] MEDS: buPROPion XL 150 MG TAB.ER.24H PO SCH (21:19)
[2021-04-08] MEDS: MIRTAZAPINE 15 MG TAB PO SCH (21:19)
[2021-04-08] MEDS ORDERED: MVI, ADULT NO.4 WITH VIT K 10 ML, TRACE (CONC-1ML/DOSE) 1 ML, SODIUM PHOSPHATE 15 MMOL,... IV SCH ×7 (22:30)
[2021-04-09] MEDS: HYDROcodone/APAP 10-325MG 1 EACH TAB PO PRN ×3 (04:30→17:02)
[2021-04-09 05:21] LABS: Glucose,Whole Blood 124 mg/dL (75-99)
[2021-04-09] MEDS: BUTALB/APAP/CAFF 50-325-40MG TAB PO PRN ×3 (05:46→19:41)
[2021-04-09 06:08] LABS: Anisocytosis Slight; Basophils # (A) 0.1 k/uL (0-0.2); Basophils % (A) 1 %; Eosinophils # (A) 0.3 k/uL (0-0.7); Eosinophils % (A) 3 %; HCT 27.7 % (34.0-46.0); Hypochromasia Marked; Lymphocytes # (A) 1.4 k/uL (1.0-4.8); Lymphocytes % (A) 13 %; MCH 25.5 pg (25.0-35.0); Mean Platelet Volume 7.2; Monocytes # (A) 0.6 k/uL (0-1.0); Monocytes % (A) 6 %; Neutrophils % (A) 77 %; Platelet Count 483 k/uL (150-450); RBC 3.15 m/uL (3.80-5.40); RDW 18.7 % (11.5-15.5); WBC 10.4 k/uL (3.8-10.6)
[2021-04-09 06:28] LABS: ALT 11 U/L (4-34); AST 17 U/L (14-36); African American GFR (CKD) 34 (>60 ml/min/1.73 sqM); Albumin 2.9 g/dL (3.5-5.0); Albumin/Globulin Ratio 0.9; Alkaline Phosphatase 272 U/L (38-126); Anion Gap 9 mmol/L; Blood Urea Nitrogen 22 mg/dL (7-17); Calcium 8.3 mg/dL (8.4-10.2); Carbon Dioxide 22 mmol/L (22-30); Chloride 103 mmol/L (98-107); Globulin 3.2 g/dL; Glucose 116 mg/dL (74-99); Magnesium 2.2 mg/dL (1.6-2.3); Non-African American GFR(CKD) 30 (>60 ml/min/1.73 sqM); Phosphorus 3.4 mg/dL (2.5-4.5); Sodium 134 mmol/L (137-145); Total Bilirubin 0.2 mg/dL (0.2-1.3); Total Protein 6.1 g/dL (6.3-8.2)
[2021-04-09] MEDS: busPIRone HCl 10 MG TAB PO SCH ×2 (08:40→19:41)
[2021-04-09] MEDS: PANTOPRAZOLE 40 MG TABLET PO SCH ×2 (08:41→19:41)
[2021-04-09] MEDS: THIAMINE 100 MG TAB PO SCH (08:41)
[2021-04-09] MEDS: hydrOXYzine pamoate 25 MG CAP PO SCH ×3 (08:41→19:42)
[2021-04-09] MEDS: LORATADINE 10 MG TAB PO SCH (08:42)
[2021-04-09] MEDS: FUROSEMIDE 20 MG TAB PO SCH (08:42)
[2021-04-09] MEDS: FERROUS SULFATE 325 MG TAB PO SCH (08:42)
[2021-04-09] MEDS: ENOXAPARIN 30 MG/0.3 ML SYRINGE SQ SCH (08:42)
[2021-04-09] MEDS: FOLIC ACID 1 MG TAB PO SCH (08:42)
[2021-04-09] MEDS: PIPERACILLIN-TAZOBACTAM 3.375 GM in SODIUM CHLORIDE 0.9% 100 ML IVPB SCH ×2 (08:42→19:42)
[2021-04-09] MEDS: buPROPion XL 300 MG TAB.ER.24H PO SCH (08:43)
[2021-04-09] MEDS ORDERED: FAT EMULSION 20% 500 ML IV SCH (11:00)
--- NOTE | 2021-04-09 11:23 | P.PN ---
Subjective Progress Note Date: 04/09/21 Principal diagnosis: Aspiration pneumonia This is a pleasant 76-year-old female patient who was hospitalized because of persistent pneumonia. The patient is well-known to us. The patient has chronic dysphagia and multiple episodes of aspiration and the patient has previous gas tric ulcers for which she has undergone previous gastrectomy. She receives TPN for nutritional support and she is to have a MediPort and based on the recent systemic candidiasis, the patient had a MediPort removed on 03/16/2021 and the patient was given a course of antifungal agents which she completed on outpatient basis. She was seen by our nurse practitioner in the office and she was felt to have ongoing pneumonia and she was asked to receive some IV antibiotics and antibiotics did not arrive and the patient was quite concerning for that reason she end up in the emergency. Currently she is on room air oxygen. She has a dry cough. No hemoptysis. No pleurisy. She does have some chronic discomfort in her chest. White cell count is not elevated. Her white cell count is at 12.4 with 8.7. And a platelet count of 504. Creatinine is at 1.56 with a mean of 25 consistent with chronic kidney disease and the sodium level is at 135. Hematocrit COVID 19 testing was negative. I reviewed the chest x-ray that shows evidence of chronic consolidation in the left mid lung measuring 8 x 5 cm in size and there is a similar area in the right midlung area measuring 6 x 4 cm in size. These are chronic and there is been some progression compared to the previous exam from 07/01/2020. The patient was started on IV Zosyn. Her most recent bronchioloalveolar lavage from 02/22/2021 showed staph aureus and her most recent CAT scan of the chest that was done on 01/28/2021 showed chronic right midlung nodular scarring with volume loss. The patient also had a tiny left-sided pleural effusion and left lung nodular scarring demonstrated in the mid and the lower lung calixto. For now, the p atient is a PICC line in the left upper extremity The patient is seen today 04/09/2021 in follow-up on the regular medical floor. She is currently resting quite comfortably in bed. Awake and alert in no acute distress. She is maintaining O2 saturations in the 90s on room air and she is afebrile. Hemodynamically stable. White count 10.4. Hemoccult lobe and 8.0. Sodium 134. Potassium 5.0. Creatinine 1.68. Glucose 116. Pro-calcitonin 1.11. Case virus not detected. Computed tomography scan of the chest reveals cavitating infiltrates and extensive patchy infiltrates worse compared to previous of 01/28/2021. The cavitating infiltrate in the right upper lobe measures 5 x 3.5 cm. There are multiple somewhat rounded masslike densities measuring up to 4 cm. She is currently on Zosyn. Objective - Vital Signs Vital signs: Vital Signs Temp 98.2 F 04/09/21 09:06 Pulse 91 04/09/21 09:06 Resp 18 04/09/21 09:06 BP 107/64 04/09/21 09:06 Pulse Ox 99 04/09/21 09:06 Intake & Output 04/08/21 04/09/21 04/09/21 18:59 06:59 18:59 Weight 41.73 kg Other: Voiding Method Toilet Toilet Toilet # Voids 2 - Exam GENERAL EXAM: Alert, very pleasant 75-year-old female patient, frail, on room air, comfortable in no apparent distress. HEAD: Normocephalic. EYES: Normal reaction of pupils, equal size. NOSE: Clear with pink turbinates. THROAT: No erythema or exudates. NECK: No masses, no JVD. CHEST: No chest wall deformity. Right subclavian Mediport in place. LUNGS: Equal air entry with bilateral scattered rhonchi more so on the left. CVS: S1 and S2 normal with no audible murmur, regular rhythm. ABDOMEN: No hepatosplenomegaly, normal bowel sounds, no guarding or rigidity. SPINE: No scoliosis or deformity SKIN: No rashes CENTRAL NERVOUS SYSTEM: No focal deficits, tone is normal in all 4 extremities. EXTREMITIES: There is no peripheral edema. No clubbing, no cyanosis. Peripheral pulses are intact. - Labs CBC & Chem 7: 04/09/21 05:18 04/09/21 05:18 Labs: Abnormal Lab Results - Last 24 Hours (Table) 04/08/21 04/08/21 04/09/21 Range/Units 15:00 18:30 05:17 RBC (3.80-5.40) m/uL Hgb (11.4-16.0) gm/dL Hct (34.0-46.0) % MCHC (31.0-37.0) g/dL RDW (11.5-15.5) % Plt Count (150-450) k/uL Neutrophils # (1.3-7.7) k/uL Sodium 135 L (137-145) mmol/L Potassium 5.4 H (3.5-5.1) mmol/L BUN 25 H (7-17) mg/dL Creatinine 1.56 H (0.52-1.04) mg/dL Glucose 57 L (74-99) mg/dL POC Glucose (mg/dL) 124 H (75-99) mg/dL Calcium (8.4-10.2) mg/dL Alkaline Phosphatase 306 H (38-126) U/L Total Protein (6.3-8.2) g/dL Albumin 3.1 L (3.5-5.0) g/dL Triglycerides 239.00 H (0.00-149.00) mg/dL Procalcitonin 1.11 H (0.02-0.09) ng/mL 04/09/21 04/09/21 Range/Units 05:18 05:18 RBC 3.15 L (3.80-5.40) m/uL Hgb 8.0 L (11.4-16.0) gm/dL Hct 27.7 L (34.0-46.0) % MCHC 29.0 L (31.0-37.0) g/dL RDW 18.7 H (11.5-15.5) % Plt Count 483 H (150-450) k/uL Neutrophils # 8.0 H (1.3-7.7) k/uL Sodium 134 L (137-145) mmol/L Potassium (3.5-5.1) mmol/L BUN 22 H (7-17) mg/dL Creatinine 1.68 H (0.52-1.04) mg/dL Glucose 116 H (74-99) mg/dL POC Glucose (mg/dL) (75-99) mg/dL Calcium 8.3 L (8.4-10.2) mg/dL Alkaline Phosphatase 272 H (38-126) U/L Total Protein 6.1 L (6.3-8.2) g/dL Albumin 2.9 L (3.5-5.0) g/dL Triglycerides (0.00-149.00) mg/dL Procalcitonin (0.02-0.09) ng/mL Assessment and Plan Assessment: 1 Bilateral upper lobe consolidation chronic, likely a sequelae of a previous infection. A superinfection or ongoing active infection is felt to be unlikely were doubtful at this stage. The patient is currently on room air oxygen. No significant leukocytosis. A follow-up CAT scan reveals bilateral left greater than right extensive pneumonia. The patient is quite comfortable and hemodyn amically stable at this point in time. 2 Known history of MSSA pneumonia as seen on BAL cultures from 02/22/2021 3 Systemic candidemia secondary to Lesly parapsilosis possible source related to MediPort which was removed today on 03/16/2021, and the patient continues to have a PICC line. The patient completed antifungal an outpatient basis 4 History of gastric ulcers status post previous gastrectomy 5 Chronic dysphagia with history of multiple episodes of aspiration pneumonia 6 Chronic TPN infusion for recurrent aspiration pneumonia 7 History of asthmatic bronchitis 8 Chronic pain syndrome 9 Chronic renal failure, stage IV 10 Anxiety and depression Plan: The patient was seen and evaluated She is stable and on room air CT scan reviewed She could be discharged on IV Rocephin 2 g every 24 hours 7 days She uses [facility] out of [place] Follow up closely in the office for follow-up chest x-rays She should remain nothing by mouth with aspiration precautions Continue with her TPN She should keep her appointment with infectious disease as well I, the cosigning physician, performed a history & physical examination of the patient. Lungs sounds with bilateral scattered rhonchi Maintaining good O2 saturations in the 90s on room air. I discussed the assessment and plan of care with my nurse practitioner, Leyla Grace. I attest to the above note as dictated by her.
[2021-04-09] MEDS: POTASSIUM CHLORIDE ER 10 MEQ TAB.ER.PRT PO SCH (11:33)
[2021-04-09 12:25] LABS: Glucose,Whole Blood 126 mg/dL (75-99)
[2021-04-09 14:01] VITALS: RESP 16
[2021-04-09 17:53] LABS: Glucose,Whole Blood 122 mg/dL (75-99)
--- NOTE | 2021-04-09 19:37 | P.PN ---
Subjective Progress Note Date: 04/09/21 Louise Sutton, is a 76 year old male who presented to [facility] emergency room with a chief complaint of generalized weakness She was evaluated in the emergency room vital examination on presentation revealed a temperature of 98.6 pulse 105 respiration 20 blood pressure 158/79 pulse ox 100% on room air Laboratory data revealed a white blood count of 12.4 hemoglobin 8.7 platelet count 504 sodium 133 potassium 5.7 BUN 29 creatinine 1.35 alkaline phosphatase 295 albumin 3.3 COVID-19 PCR was negative Testing in the emergency room chest x-ray done in the emergency room revealed bilateral pneumonic consolidation with progression from previous exam Patient was admitted to medical floor for further evaluation and treatment. Pulmonary consultation was requested Past medical history is significant for recurrent episodes of pneumonia with evidence of aspiration pneumonia in the past currently patient is maintained on TPN, past medical history also significant for hypothyroidism, migraine headaches, chronic anemia On 04/09/2021 patient was seen and examined on the medical floor she is alert and oriented 3 in no apparent distress she is complaining of migraine headache and requesting that her Fioricet be increased to 4 times a day instead of twice a day otherwise she denies any complaints at this time there is no fever or chills no dizziness no chest pain no shortness of breath she has occasional cough no nausea or vomiting no abdominal pain no diarrhea no blood in the stools no burning with urination no frequency or urgency and no hematuria. Patient is maintained on TPN, she is also receiving yogurt and liquids and oral medications. Objective - Vital Signs Vital signs: Vital Signs Temp 98.1 F 04/09/21 19:29 Pulse 101 H 04/09/21 19:29 Resp 16 04/09/21 19:29 BP 116/63 04/09/21 19:29 Pulse Ox 99 04/09/21 19:29 Intake & Output 04/09/21 04/09/21 04/10/21 06:59 18:59 06:59 Intake Total 1290 Balance 1290 Intake: Intake, IV Titration 810 Amount Fat Emulsion 20% 500 ml @ 250 41.667 mls/hr IV Tu [facility] Rx#:[id number] Mvi, Adult No.4 with Vit 360 K 10 ml Trace (Conc-1Ml/ Dose) 1 ml Sodium Phosphate 15 mmol Sodium Chloride 4Meq/ml Vial 40 meq Magnesium Sulfate gm 1 gm Calcium Gluconate 1 gm In Amino Acids 5 %/ Dextrose 20 % 1,000 ml @ 50 mls/hr IV .BY DURATION [facility] Rx#:[id number] Piperacillin-Tazobactam 3 100 .375 gm In Sodium Chloride 0.9% 100 ml @ 25 mls/hr IVPB Q12HR [facility] Rx #:[id number] Piperacillin-Tazobactam 3 100 .375 gm In Sodium Chloride 0.9% 100 ml @ 25 mls/hr IVPB Q8HR [facility] Rx# :[id number] Oral 480 Other: Voiding Method Toilet Toilet # Voids 3 - Exam In general patient is alert and oriented x 3 in no distress HEENT head normocephalic and atraumatic Neck is supple no JVD no goiter no lymphadenopathy no carotid bruit Chest examination reveals a crackles in both bases no wheezing Cardiac exam reveals regular heart sounds S1 and S2 no gallops no murmurs Abdomen is soft nontender no organomegaly with normal bowel sounds Extremity exam reveals no edema no cyanosis or clubbing Neurological examination reveals no gross focal deficits - Labs CBC & Chem 7: 04/09/21 05:18 04/09/21 05:18 Labs: Abnormal Lab Results - Last 24 Hours (Table) 04/08/21 04/08/21 04/09/21 Range/Units 15:00 18:30 05:17 RBC (3.80-5.40) m/uL Hgb (11.4-16.0) gm/dL Hct (34.0-46.0) % MCHC (31.0-37.0) g/dL RDW (11.5-15.5) % Plt Count (150-450) k/uL Neutrophils # (1.3-7.7) k/uL Sodium (137-145) mmol/L BUN (7-17) mg/dL Creatinine (0.52-1.04) mg/dL Glucose (74-99) mg/dL POC Glucose (mg/dL) 124 H (75-99) mg/dL Calcium (8.4-10.2) mg/dL Alkaline Phosphatase (38-126) U/L Total Protein (6.3-8.2) g/dL Albumin (3.5-5.0) g/dL Triglycerides 239.00 H (0.00-149.00) mg/dL Procalcitonin 1.11 H (0.02-0.09) ng/mL 04/09/21 04/09/21 04/09/21 Range/Units 05:18 05:18 12:23 RBC 3.15 L (3.80-5.40) m/uL Hgb 8.0 L (11.4-16.0) gm/dL Hct 27.7 L (34.0-46.0) % MCHC 29.0 L (31.0-37.0) g/dL RDW 18.7 H (11.5-15.5) % Plt Count 483 H (150-450) k/uL Neutrophils # 8.0 H (1.3-7.7) k/uL Sodium 134 L (137-145) mmol/L BUN 22 H (7-17) mg/dL Creatinine 1.68 H (0.52-1.04) mg/dL Glucose 116 H (74-99) mg/dL POC Glucose (mg/dL) 126 H (75-99) mg/dL Calcium 8.3 L (8.4-10.2) mg/dL Alkaline Phosphatase 272 H (38-126) U/L Total Protein 6.1 L (6.3-8.2) g/dL Albumin 2.9 L (3.5-5.0) g/dL Triglycerides (0.00-149.00) mg/dL Procalcitonin (0.02-0.09) ng/mL 04/09/21 Range/Units 17:52 RBC (3.80-5.40) m/uL Hgb (11.4-16.0) gm/dL Hct (34.0-46.0) % MCHC (31.0-37.0) g/dL RDW (11.5-15.5) % Plt Count (150-450) k/uL Neutrophils # (1.3-7.7) k/uL Sodium (137-145) mmol/L BUN (7-17) mg/dL Creatinine (0.52-1.04) mg/dL Glucose (74-99) mg/dL POC Glucose (mg/dL) 122 H (75-99) mg/dL Calcium (8.4-10.2) mg/dL Alkaline Phosphatase (38-126) U/L Total Protein (6.3-8.2) g/dL Albumin (3.5-5.0) g/dL Triglycerides (0.00-149.00) mg/dL Procalcitonin (0.02-0.09) ng/mL Assessment and Plan Plan: Bilateral pneumonia, patient has history of recurrent episodes of pneumonia, evaluation in the past revealed aspiration pneumonia, patient is currently on TPN Generalized weakness, chronic but worsening recently, Will consult physical therapy and occupational therapy Underlying history of hypothyroidism Underlying history of osteoarthritis with chronic pain syndrome maintained on narcotics at home Underlying history of chronic anemia Underlying history of migraine headache Previous history of pancreatitis For DVT prophylaxis we will use Lovenox, for GI prophylaxis IV protonix At this time patient is admitted to medical floor Home medications reviewed and reordered Consultation for pulmonary was initiated for IV antibiotics Consultation for dietitian initiated for continuation of TPN Pulmonary recommendation reviewed, at this time they are recommending Rocephin 2 g IV every 24 hours at the time of discharge for 7 more day Will arrange for discharge tomorrow Prognosis is guarded will follow closely
[2021-04-09] MEDS: MIRTAZAPINE 15 MG TAB PO SCH (19:42)
[2021-04-09] MEDS: buPROPion XL 150 MG TAB.ER.24H PO SCH (19:42)
[2021-04-09] MEDS ORDERED: 1: MVI, ADULT NO.4 WITH VIT K 10 ML, TRACE (CONC-1ML/DOSE) 1 ML, SODIUM PHOSPHATE 15 MMO IV SCH ×7 (22:30)
[2021-04-09 23:35] LABS: Glucose,Whole Blood 98 mg/dL (75-99)
[2021-04-10] MEDS: HYDROcodone/APAP 10-325MG 1 EACH TAB PO PRN ×3 (01:37→13:16)
[2021-04-10] MEDS: BUTALB/APAP/CAFF 50-325-40MG TAB PO PRN ×3 (03:11→14:42)
[2021-04-10 06:06] LABS: Glucose,Whole Blood 109 mg/dL (75-99)
[2021-04-10 07:26] LABS: Glucose,Whole Blood 111 mg/dL (75-99)
[2021-04-10] MEDS: PIPERACILLIN-TAZOBACTAM 3.375 GM in SODIUM CHLORIDE 0.9% 100 ML IVPB SCH (08:23)
[2021-04-10] MEDS: FUROSEMIDE 20 MG TAB PO SCH (08:24)
[2021-04-10] MEDS: busPIRone HCl 10 MG TAB PO SCH (08:24)
[2021-04-10] MEDS: ENOXAPARIN 30 MG/0.3 ML SYRINGE SQ SCH (08:24)
[2021-04-10] MEDS: buPROPion XL 300 MG TAB.ER.24H PO SCH (08:24)
[2021-04-10] MEDS: THIAMINE 100 MG TAB PO SCH (08:24)
[2021-04-10] MEDS: hydrOXYzine pamoate 25 MG CAP PO SCH ×2 (08:25→15:33)
[2021-04-10] MEDS: FERROUS SULFATE 325 MG TAB PO SCH (08:25)
[2021-04-10] MEDS: PANTOPRAZOLE 40 MG TABLET PO SCH (08:25)
[2021-04-10] MEDS: LORATADINE 10 MG TAB PO SCH (08:25)
[2021-04-10] MEDS: FOLIC ACID 1 MG TAB PO SCH (08:25)
--- NOTE | 2021-04-10 10:23 | P.DS ---
Providers Date of admission: 04/07/21 15:26 Expected date of discharge: 04/10/21 Attending physician: Palmer Desir Consults: 04/07/21 16:16 Consult Physician Routine Consulting Provider: Garry Sanchez Consult Reason/Comments: COPD, pneumonia Do you want consulting provider notified?: Yes Primary care physician: Ale Eli [place] Hospital Course: Discharge diagnosis Bilateral pneumonia, patient has history of recurrent episodes of pneumonia, evaluation in the past revealed aspiration pneumonia, patient is currently on TPN Generalized weakness, chronic but worsening recently, Will consult physical therapy and occupational therapy Underlying history of hypothyroidism Underlying history of osteoarthritis with chronic pain syndrome maintained on n arcotics at home Underlying history of chronic anemia Underlying history of migraine headache Previous history of pancreatitis Hospital course Louise Sutton, is a 76 year old male who presented to [facility] emergency room with a chief complaint of generalized weakness She was evaluated in the emergency room vital examination on presentation revealed a temperature of 98.6 pulse 105 respiration 20 blood pressure 158/79 pulse ox 100% on room air Laboratory data revealed a white blood count of 12.4 hemoglobin 8.7 platelet count 504 sodium 133 potassium 5.7 BUN 29 creatinine 1.35 alkaline phosphatase 295 albumin 3.3 COVID-19 PCR was negative Testing in the emergency room chest x-ray done in the emergency room revealed bilateral pneumonic consolidation with progression from previous exam Patient was admitted to medical floor for further evaluation and treatment. Pulmonary consultation was requested Past medical history is significant for recurrent episodes of pneumonia with evidence of aspiration pneumonia in the past currently patient is maintained on TPN, past medical history also significant for hypothyroidism, migraine headaches, chronic anemia On 04/09/2021 patient was seen and examined on the medical floor she is alert and oriented 3 in no apparent distress she is complaining of migraine headache and requesting that her Fioricet be increased to 4 times a day instead of twice a day otherwise she denies any complaints at this time there is no fever or chills no dizziness no chest pain no shortness of breath she has occasional cough no nausea or vomiting no abdominal pain no diarrhea no blood in the stools no burning with urination no frequency or urgency and no hematuria. Patient is maintained on TPN, she is also receiving yogurt and liquids and oral medications. On 04/10/2010 when patient alert and oriented 3. Patient expresses that she is very eager to go home. Patient remains on room air afebrile. Discussed with case management antibiotics have been arranged for home. Patient to be on Rocephin 2 g daily 24 hours for 7 days. Antibiotics to start tomorrow patient to receive last dose of Rocephin in patient prior to discharge. Patient also continue TPN upon discharge. Patient denies chest pain or shortness breath. Patient denies nausea vomiting or diarrhea. Patient denies any urinary burning or frequency Patient Condition at Discharge: Stable Plan - Discharge Summary New Discharge Prescriptions: Continue Ferrous Sulfate [Iron (65 MG Elemental)] 325 mg PO DAILY@1200 calcitrioL [Calcitriol] 1 mcg PO MOWEFR Levothyroxine Sodium [Synthroid] 88 mcg PO DAILY busPIRone HCL [Buspar] 30 mg PO BID hydrOXYzine pamoate [hydrOXYzine PAMOATE] 25 mg PO TID Potassium Chloride ER [K-Dur 10] 30 meq PO DAILY@1200 Pantoprazole Sodium [Protonix] 40 mg PO BID 30 Days #60 tablet. [place]/APAP/Caff 50-325-40Mg [Fioricet 50-325-40] 1 tab PO BID PRN PRN Reason: Migraine Headache buPROPion XL [Wellbutrin XL] 150 mg PO DAILY HYDROcodone/APAP 10-325MG [[place] 10-325] 1 tab PO BID PRN PRN Reason: Pain fentaNYL 75MCG/HR PATCH [Duragesic 75MCG/HR] 1 patch TRANSDERM Q72H 3 Days #3 patch Furosemide [Lasix] 20 mg PO DAILY #6 tab Mirtazapine [Remeron] 45 mg PO HS Albuterol Sulfate [Albuterol Sulfate Hfa] 2 puff PO RT-Q6H PRN PRN Reason: Shortness Of Breath Iv Antibiotic (Unknown) 1 dose IV DIRECTED buPROPion XL [Wellbutrin XL] 300 mg PO DAILY Tpn 1 dose IV DAILY Budesonide/Formoterol Fumarate [Symbicort 160-4.5 Mcg Inhaler] 2 puff INHALATION RT-BID Fluticasone Nasal [place] [Flonase Nasal [place]] 2 spray EA NOSTRIL BID Loratadine [Claritin] 10 mg PO DAILY Discharge Medication List Ferrous Sulfate [Iron (65 MG Elemental)] 325 mg PO DAILY@1200 11/06/15 [History] Levothyroxine Sodium [Synthroid] 88 mcg PO DAILY 06/07/19 [History] calcitrioL [Calcitriol] 1 mcg PO MOWEFR 06/07/19 [History] busPIRone HCL [Buspar] 30 mg PO BID 04/14/20 [History] Potassium Chloride ER [K-Dur 10] 30 meq PO DAILY@1200 04/18/20 [History] hydrOXYzine pamoate [hydrOXYzine PAMOATE] 25 mg PO TID 04/18/20 [History] Pantoprazole Sodium [Protonix] 40 mg PO BID 30 Days #60 tablet. 04/27/20 [Rx] Butalb/APAP/Caff 50-325-40Mg [Fioricet 50-325-40] 1 tab PO BID PRN 06/30/20 [History] buPROPion XL [Wellbutrin XL] 150 mg PO DAILY 11/04/20 [History] Furosemide [Lasix] 20 mg PO DAILY #6 tab 12/13/20 [Rx] HYDROcodone/APAP 10-325MG [[place] 10-325] 1 tab PO BID PRN 12/13/20 [History] fentaNYL 75MCG/HR PATCH [Duragesic 75MCG/HR] 1 patch TRANSDERM Q72H 3 Days #3 patch 12/13/20 [Rx] Tpn 1 dose IV DAILY 02/20/21 [History] buPROPion XL [Wellbutrin XL] 300 mg PO DAILY 02/20/21 [History] Albuterol Sulfate [Albuterol Sulfate Hfa] 2 puff PO RT-Q6H PRN 04/07/21 [History] Budesonide/Formoterol Fumarate [Symbicort 160-4.5 Mcg Inhaler] 2 puff INHALATION RT-BID 04/07/21 [History] Fluticasone Nasal [place] [Flonase Nasal [place]] 2 spray EA NOSTRIL BID 04/07/21 [History] Iv Antibiotic (Unknown) 1 dose IV DIRECTED 04/07/21 [History] Loratadine [Claritin] 10 mg PO DAILY 04/07/21 [History] Mirtazapine [Remeron] 45 mg PO HS 04/07/21 [History] Follow up Appointment(s)/Referral(s): Ale Eli MD [Primary Care Provider] - 1-2 days [facility], [NON-STAFF] - Activity/Diet/Wound Care/Special Instructions: [facility] can be reached at [phone] for questions. Home diuretics ranged per case management patient to be maintained on Rocephin 2 g every 24 hours for 7 days discussed case with case management everything arranged Patient to continue TPN Discharge Disposition: HOME WITH HOME HEALTH SERVICES
[2021-04-10 11:49] LABS: African American GFR (CKD) 36.4 (60.0-200.0); Anion Gap 17.1 mmol/L (10.00-18.00); BUN/Creat Ratio 16.25 Ratio (12.00-20.00); Calcium 8.2 mg/dL (8.7-10.3); Carbon Dioxide 16.9 mmol/L (20.0-27.5); Magnesium 2.4 mg/dL (1.5-2.4); Non-African American GFR(CKD) 31.4 (60.0-200.0); Phosphorus 3.5 mg/dL (2.4-5.1); Potassium 5.2 mmol/L (3.5-5.5)
[2021-04-10 11:59] VITALS: BP 109/67; PULSE 89; TEMP 97.4
[2021-04-10 12:07] LABS: Glucose,Whole Blood 95 mg/dL (75-99)
[2021-04-10] MEDS: POTASSIUM CHLORIDE ER 10 MEQ TAB.ER.PRT PO SCH (12:17)
--- NOTE | 2021-04-10 13:11 | P.PN ---
Subjective Progress Note Date: 04/10/21 Principal diagnosis: Aspiration pneumonia This is a pleasant 76-year-old female patient who was hospitalized because of persistent pneumonia. The patient is well-known to us. The patient has chronic dysphagia and multiple episodes of aspiration and the patient has previous gas tric ulcers for which she has undergone previous gastrectomy. She receives TPN for nutritional support and she is to have a MediPort and based on the recent systemic candidiasis, the patient had a MediPort removed on 03/16/2021 and the patient was given a course of antifungal agents which she completed on outpatient basis. She was seen by our nurse practitioner in the office and she was felt to have ongoing pneumonia and she was asked to receive some IV antibiotics and antibiotics did not arrive and the patient was quite concerning for that reason she end up in the emergency. Currently she is on room air oxygen. She has a dry cough. No hemoptysis. No pleurisy. She does have some chronic discomfort in her chest. White cell count is not elevated. Her white cell count is at 12.4 with 8.7. And a platelet count of 504. Creatinine is at 1.56 with a mean of 25 consistent with chronic kidney disease and the sodium level is at 135. Hematocrit COVID 19 testing was negative. I reviewed the chest x-ray that shows evidence of chronic consolidation in the left mid lung measuring 8 x 5 cm in size and there is a similar area in the right midlung area measuring 6 x 4 cm in size. These are chronic and there is been some progression compared to the previous exam from 07/01/2020. The patient was started on IV Zosyn. Her most recent bronchioloalveolar lavage from 02/22/2021 showed staph aureus and her most recent CAT scan of the chest that was done on 01/28/2021 showed chronic right midlung nodular scarring with volume loss. The patient also had a tiny left-sided pleural effusion and left lung nodular scarring demonstrated in the mid and the lower lung calixto. For now, the p atient is a PICC line in the left upper extremity The patient is seen today 04/09/2021 in follow-up on the regular medical floor. She is currently resting quite comfortably in bed. Awake and alert in no acute distress. She is maintaining O2 saturations in the 90s on room air and she is afebrile. Hemodynamically stable. White count 10.4. Hemoccult lobe and 8.0. Sodium 134. Potassium 5.0. Creatinine 1.68. Glucose 116. Pro-calcitonin 1.11. Case virus not detected. Computed tomography scan of the chest reveals cavitating infiltrates and extensive patchy infiltrates worse compared to previous of 01/28/2021. The cavitating infiltrate in the right upper lobe measures 5 x 3.5 cm. There are multiple somewhat rounded masslike densities measuring up to 4 cm. She is currently on Zosyn. The patient is seen today 04/10/2021 in follow-up on the regular medical floor. She is resting comfortably in bed. Awake and alert in no acute distress. Maintaining O2 saturation in the 90s on room air. Afebrile. Hemodynamically stable. Sodium 135. Potassium 35.2. Creatinine 1.6. Glucose 101. Magnesium 2.4. She is continued on IV Zosyn. She is being nourished with TPN and lipids. Objective - Vital Signs Vital signs: Vital Signs Temp 97.4 F L 04/10/21 11:29 Pulse 89 04/10/21 11:29 Resp 16 04/10/21 11:29 BP 109/67 04/10/21 11:29 Pulse Ox 100 04/10/21 11:29 Intake & Output 04/09/21 04/10/21 04/10/21 18:59 06:59 18:59 Intake Total 1290 884 Balance 1290 884 Intake: Intake, IV Titration 810 584 Amount Fat Emulsion 20% 500 ml @ 250 164 41.667 mls/hr IV Tu [facility] Rx#:[id number] Mvi, Adult No.4 with Vit 120 K 10 ml Trace (Conc-1Ml/ Dose) 1 ml Sodium Phosphate 15 mmol Sodium Chloride 4Meq/ml Vial 40 meq Magnesium Sulfate gm 1 gm Calcium Gluconate 1 gm In Amino Acids 5 %/ Dextrose 20 % 1,000 ml @ 30 mls/hr IV .Q24H [facility] Rx #:[id number] Mvi, Adult No.4 with Vit 360 K 10 ml Trace (Conc-1Ml/ Dose) 1 ml Sodium Phosphate 15 mmol Sodium Chloride 4Meq/ml Vial 40 meq Magnesium Sulfate gm 1 gm Calcium Gluconate 1 gm In Amino Acids 5 %/ Dextrose 20 % 1,000 ml @ 50 mls/hr IV .BY DURATION [facility] Rx#:[id number] Piperacillin-Tazobactam 3 100 .375 gm In Sodium Chloride 0.9% 100 ml @ 25 mls/hr IVPB Q12HR [facility] Rx #:[id number] Piperacillin-Tazobactam 3 100 .375 gm In Sodium Chloride 0.9% 100 ml @ 25 mls/hr IVPB Q8HR [facility] Rx# :[id number] Sodium Phosphate 15 mmol 300 Sodium Chloride 4Meq/ml Vial 40 meq Magnesium Sulfate gm 1 gm Calcium Gluconate 1 gm In Amino Acids 5 %/Dextrose 20 % 1 ,000 ml @ 50 mls/hr IV . BY DURATION [facility] Rx#: [id number] Oral 480 300 Other: Voiding Method Toilet Toilet Toilet # Voids 3 1 - Exam GENERAL EXAM: Alert, very pleasant 75-year-old female patient, frail, on room air, comfortable in no apparent distress. HEAD: Normocephalic. EYES: Normal reaction of pupils, equal size. NOSE: Clear with pink turbinates. THROAT: No erythema or exudates. NECK: No masses, no JVD. CHEST: No chest wall deformity. Right subclavian Mediport in place. LUNGS: Equal air entry with bilateral scattered rhonchi more so on the left. CVS: S1 and S2 normal with no audible murmur, regular rhythm. ABDOMEN: No hepatosplenomegaly, normal bowel sounds, no guarding or rigidity. SPINE: No scoliosis or deformity SKIN: No rashes CENTRAL NERVOUS SYSTEM: No focal deficits, tone is normal in all 4 extremities. EXTREMITIES: There is no peripheral edema. No clubbing, no cyanosis. Peripheral pulses are intact. - Labs CBC & Chem 7: 04/09/21 05:18 04/10/21 04:21 Labs: Abnormal Lab Results - Last 24 Hours (Table) 04/09/21 04/10/21 04/10/21 Range/Units 17:52 04:21 06:05 Carbon Dioxide 16.9 L (20.0-27.5) mmol/L Creatinine 1.6 H (0.6-1.5) mg/dL Est GFR (CKD-EPI)AfAm 36.4 L (60.0-200.0) Est GFR (CKD-EPI)NonAf 31.4 L (60.0-200.0) POC Glucose (mg/dL) 122 H 109 H (75-99) mg/dL Calcium 8.2 L (8.7-10.3) mg/dL 04/10/21 Range/Units 07:18 Carbon Dioxide (20.0-27.5) mmol/L Creatinine (0.6-1.5) mg/dL Est GFR (CKD-EPI)AfAm (60.0-200.0) Est GFR (CKD-EPI)NonAf (60.0-200.0) POC Glucose (mg/dL) 111 H (75-99) mg/dL Calcium (8.7-10.3) mg/dL Assessment and Plan Assessment: 1 Bilateral upper lobe consolidation chronic, likely a sequelae of a previous infection. A superinfection or ongoing active infection is felt to be unlikely were doubtful at this stage. The patient is currently on room air oxygen. No significant leukocytosis. A follow-up CAT scan reveals bilateral left greater than right extensive pneumonia. The patient is quite comfortable and hemodynami lorene stable at this point in time. The plan is for one week of IV ceftriaxone in the outpatient setting. 2 Known history of MSSA pneumonia as seen on BAL cultures from 02/22/2021 3 Systemic candidemia secondary to Lesly parapsilosis possible source related to MediPort which was removed today on 03/16/2021, and the patient continues to have a PICC line. The patient completed antifungal an outpatient basis 4 History of gastric ulcers status post previous gastrectomy 5 Chronic dysphagia with history of multiple episodes of aspiration pneumonia 6 Chronic TPN infusion for recurrent aspiration pneumonia 7 History of asthmatic bronchitis 8 Chronic pain syndrome 9 Chronic renal failure, stage IV 10 Anxiety and depression Plan: The patient was seen and evaluated She is stable and on room air She could be discharged on IV Rocephin 2 g every 24 hours 7 days She uses [facility] out of [place] Follow up closely in the office for follow-up chest x-ray I, the cosigning physician, performed a history & physical examination of the patient. Lungs sounds with bilateral scattered rhonchi Maintaining good O2 saturations in the 90s on room air. I discussed the assessment and plan of care with my nurse practitioner, Leyla Grace. I attest to the above note as dictated by her.
== END 2021-04-10 16:45 | disposition home health service (06) | DRG 194 ==
LOC: EC 13:14 → 5NMEDONC 15:26
PROVIDERS: ADMIT Internal Medicine; ATTEND Internal Medicine
PROC: 3E0336Z Introduction of Nutritional Substance into Peripheral Vein, Percutaneous Approach (ICD-10-PCS; principal; 2021-04-07)
DX: J18.9 Pneumonia, unspecified organism (principal); J44.0 Chronic obstructive pulmonary disease with (acute) lower respiratory infection; N18.4 Chronic kidney disease, stage 4 (severe); K86.1 Other chronic pancreatitis; D64.9 Anemia, unspecified; R54 Age-related physical debility; K21.9 Gastro-esophageal reflux disease without esophagitis; E03.9 Hypothyroidism, unspecified; G43.909 Migraine, unspecified, not intractable, without status migrainosus; M19.09 Primary osteoarthritis, other specified site; F32.A Depression, unspecified; J30.89 Other allergic rhinitis; F41.0 Panic disorder [episodic paroxysmal anxiety]; G89.4 Chronic pain syndrome; R13.10 Dysphagia, unspecified; Z20.822 Contact with and (suspected) exposure to COVID-19; Z79.51 Long term (current) use of inhaled steroids; Z79.890 Hormone replacement therapy; Z79.891 Long term (current) use of opiate analgesic; Z79.899 Other long term (current) drug therapy; Z80.41 Family history of malignant neoplasm of ovary; Z86.73 Personal history of transient ischemic attack (TIA), and cerebral infarction without residual deficits; Z87.01 Personal history of pneumonia (recurrent); Z87.11 Personal history of peptic ulcer disease; Z90.3 Acquired absence of stomach [part of]; Z90.710 Acquired absence of both cervix and uterus
CPT/HCPCS: 36415; 71046; 71250; 80048; 80053; 82330; 83735; 84100; 84145; 84478; 85025; 87635; 96361; 96365; 99285

== ENCOUNTER 2021-04-21 10:16 | Inpatient (IN) | payer MEDICARE, OTHER ==
--- NOTE | 2021-04-21 11:28 | ED ---
General Adult HPI - General Chief complaint: Shortness of Breath Stated complaint: DONTE, cough,headache Time Seen by Provider: 04/21/21 10:20 Source: patient, RN notes reviewed, old records reviewed Mode of arrival: wheelchair Limitations: no limitations - History of Present Illness Initial comments: This is a 76-year-old female who has past medical history significant for multiple bouts of aspiration pneumonia. Patient had his been on TPN for quite a while because of this. Patient was recently on antibiotics stopped about one week ago. Patient states over the last couple of days she's developed a cough again and shortness of breath with any exertion. Patient also states she has chest heaviness with any exertion. Patient states she also sometimes finds it difficult to talk because she so short of breath. Patient denies any fever or chills. Patient denies having the COVID vaccine. Patient denies any abdominal pain patient denies nausea vomiting diarrhea. - Related Data Home Medications Medication Instructions Recorded Confirmed Ferrous Sulfate [Iron (65 MG 325 mg PO DAILY@1200 11/06/15 04/07/21 Elemental)] Levothyroxine Sodium [Synthroid] 88 mcg PO DAILY 06/07/19 04/07/21 calcitrioL [Calcitriol] 1 mcg PO MOWEFR 06/07/19 04/07/21 busPIRone HCL [Buspar] 30 mg PO BID 04/14/20 04/07/21 Potassium Chloride ER [K-Dur 10] 30 meq PO DAILY@1200 04/18/20 04/07/21 hydrOXYzine pamoate [hydrOXYzine 25 mg PO TID 04/18/20 04/07/21 PAMOATE] Butalb/APAP/Caff 50-325-40Mg 1 tab PO BID PRN 06/30/20 04/07/21 [Fioricet 50-325-40] buPROPion XL [Wellbutrin XL] 150 mg PO DAILY 11/04/20 04/07/21 HYDROcodone/APAP 10-325MG [[place] 1 tab PO BID PRN 12/13/20 04/07/21 10-325] Tpn 1 dose IV DAILY 02/20/21 04/07/21 buPROPion XL [Wellbutrin XL] 300 mg PO DAILY 02/20/21 04/07/21 Albuterol Sulfate [Albuterol 2 puff PO RT-Q6H PRN 04/07/21 04/07/21 Sulfate Hfa] Budesonide/Formoterol Fumarate 2 puff INHALATION RT-BID 04/07/21 04/07/21 [Symbicort 160-4.5 Mcg Inhaler] Fluticasone Nasal [place] [Flonase 2 spray EA NOSTRIL BID 04/07/21 04/07/21 Nasal [place]] Iv Antibiotic (Unknown) 1 dose IV DIRECTED 04/07/21 04/07/21 Loratadine [Claritin] 10 mg PO DAILY 04/07/21 04/07/21 Mirtazapine [Remeron] 45 mg PO HS 04/07/21 04/07/21 Previous Rx's Medication Instructions Recorded Pantoprazole Sodium [Protonix] 40 mg PO BID 30 Days #60 tablet. 04/27/20 Furosemide [Lasix] 20 mg PO DAILY #6 tab 12/13/20 fentaNYL 75MCG/HR PATCH [Duragesic 1 patch TRANSDERM Q72H 3 Days #3 12/13/20 75MCG/HR] patch Allergies Allergy/AdvReac Type Severity Reaction Status Date / Time denosumab [From Prolia] Allergy SEVERE Verified 04/21/21 10:25 CALCIUM LOSS morphine AdvReac Confusion Verified 04/21/21 10:25 DUST Allergy Itching Uncoded 04/21/21 10:25 MOLDS Allergy Itching Uncoded 04/21/21 10:25 Review of Systems ROS Statement: Those systems with pertinent positive or pertinent negative responses have been documented in the HPI. ROS Other: All systems not noted in ROS Statement are negative. 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 History of Any Multi-Drug Resistant Organisms: None Reported Past Surgical History: Back Surgery, Bowel Resection, Hysterectomy, Joint Replacement Additional Past Surgical History / Comment(s): LOWER BACK SURGERY lamenectomy/discetomy then had a revison of that sx. 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, nasal sx d/t broken nose, colonoscopy/egd, PAIN CLINIC PROCEDURES, PORT A CATH INSERTION, LT ADEOLA, Past Anesthesia/Blood Transfusion Reactions: No Reported Reaction Additional Past Anesthesia/Blood Transfusion Reaction / Comment(s): PT RECIEVED BLOOD TRANSFUSIONS AFTER STOMACH SURGERY Past Psychological History: Anxiety, Depression, Panic Disorder Smoking Status: Never smoker Past Alcohol Use History: None Reported Past Drug Use History: None Reported - Past Family History Father Family Medical History: Cancer, Coronary Artery Disease (CAD) Additional Family Medical History / Comment(s): FATHER HAD BLADDER AND KIDNEY CANCER. FATHER HAD TB WHEN HE WAS A CHILD .FATHER AT AGE 87. Mother Family Medical History: Cancer Additional Family Medical History / Comment(s): MOTHER AT AGE 58 OF OVARIAN CANCER. General Exam - General Exam Comments Initial Comments: GENERAL: Patient is well-developed and well-nourished. Patient is nontoxic and well- hydrated and is in mild distress. ENT: Neck is soft and supple. No significant lymphadenopathy is noted. Oropharynx is clear. Moist mucous membranes. Neck has full range of motion without eliciting any pain. EYES: The sclera were anicteric and conjunctiva were pink and moist. Extraocular movements were intact and pupils were equal round and reactive to light. Eyel ids were unremarkable. PULMONARY: Unlabored respirations. Good breath sounds bilaterally. Patient has crackles in the left side CARDIOVASCULAR: There is a regular rate and rhythm without any murmurs gallops or rubs. ABDOMEN: Soft and nontender with normal bowel sounds. SKIN: Skin is clear with no lesions or rashes and otherwise unremarkable. NEUROLOGIC: Patient is alert and oriented x3. Cranial nerves II through XII are grossly intact. Motor and sensory are also intact. Normal speech, volume and content. Symmetrical smile. MUSCULOSKELETAL: Normal extremities with adequate strength and full range of motion. LYMPHATICS: No significant lymphadenopathy is noted PSYCHIATRIC: Normal psychiatric evaluation. Limitations: no limitations Course Vital Signs 04/21/21 04/21/21 10:21 12:18 Temperature 98 F Pulse Rate 107 H 99 Respiratory 18 18 Rate Blood Pressure 165/88 145/83 O2 Sat by Pulse 98 98 Oximetry Medical Decision Making - Medical Decision Making EKG shows normal sinus rhythm at 92 bpm OR interval 126 QRS is 70 QT interval 358 QTC is 442. Patient's EKG shows no ST segment elevation or depression. Patient's chest x-ray shows residual infiltrate that was there previously. Patient tested COVID positive so started the patient on monoclonal antibodies. Patient is oxygenating 97-90% on room air. Patient is staying in the hospital because of the chest discomfort that she is complaining of. I spoke with Dr. Desir he agreed to admit the patient admitted the patient were to bring her to consult to cardiology. I also consult pulmonary. - Lab Data Result diagrams: 04/21/21 11:05 04/21/21 11:05 Lab Results 04/21/21 04/21/21 04/21/21 Range/Units 11:05 11:05 11:05 WBC 7.7 (3.8-10.6) k/uL RBC 3.62 L (3.80-5.40) m/uL Hgb 9.1 L (11.4-16.0) gm/dL Hct 30.5 L (34.0-46.0) % MCV 84.4 (80.0-100.0) fL MCH 25.0 (25.0-35.0) pg MCHC 29.7 L (31.0-37.0) g/dL RDW 17.9 H (11.5-15.5) % Plt Count 452 H (150-450) k/uL MPV 7.3 Neutrophils % 78 % Lymphocytes % 13 % Monocytes % 7 % Eosinophils % 1 % Basophils % 1 % Neutrophils # 6.0 (1.3-7.7) k/uL Lymphocytes # 1.0 (1.0-4.8) k/uL Monocytes # 0.5 (0-1.0) k/uL Eosinophils # 0.1 (0-0.7) k/uL Basophils # 0.0 (0-0.2) k/uL Hypochromasia Marked Anisocytosis Slight PT 9.4 (9.0-12.0) sec INR 0.9 (<1.2) APTT 26.4 (22.0-30.0) sec Sodium 135 L (137-145) mmol/L Potassium 4.9 (3.5-5.1) mmol/L Chloride 96 L (98-107) mmol/L Carbon Dioxide 27 (22-30) mmol/L Anion Gap 12 mmol/L BUN 31 H (7-17) mg/dL Creatinine 1.34 H (0.52-1.04) mg/dL Est GFR (CKD-EPI)AfAm 45 (>60 ml/min/1.73 sqM) Est GFR (CKD-EPI)NonAf 39 (>60 ml/min/1.73 sqM) Glucose 116 H (74-99) mg/dL Plasma Lactic Acid Jonah (0.7-2.0) mmol/L Calcium 8.7 (8.4-10.2) mg/dL Magnesium 2.1 (1.6-2.3) mg/dL Total Bilirubin 0.3 (0.2-1.3) mg/dL AST 63 H (14-36) U/L ALT 41 H (4-34) U/L Alkaline Phosphatase 345 H (38-126) U/L Troponin I (0.000-0.034) ng/mL Total Protein 7.0 (6.3-8.2) g/dL Albumin 3.4 L (3.5-5.0) g/dL Coronavirus (PCR) (Not Detectd) 04/21/21 04/21/21 04/21/21 Range/Units 11:05 11:05 11:05 WBC (3.8-10.6) k/uL RBC (3.80-5.40) m/uL Hgb (11.4-16.0) gm/dL Hct (34.0-46.0) % MCV (80.0-100.0) fL MCH (25.0-35.0) pg MCHC (31.0-37.0) g/dL RDW (11.5-15.5) % Plt Count (150-450) k/uL MPV Neutrophils % % Lymphocytes % % Monocytes % % Eosinophils % % Basophils % % Neutrophils # (1.3-7.7) k/uL Lymphocytes # (1.0-4.8) k/uL Monocytes # (0-1.0) k/uL Eosinophils # (0-0.7) k/uL Basophils # (0-0.2) k/uL Hypochromasia Anisocytosis PT (9.0-12.0) sec INR (<1.2) APTT (22.0-30.0) sec Sodium (137-145) mmol/L Potassium (3.5-5.1) mmol/L Chloride (98-107) mmol/L Carbon Dioxide (22-30) mmol/L Anion Gap mmol/L BUN (7-17) mg/dL Creatinine (0.52-1.04) mg/dL Est GFR (CKD-EPI)AfAm (>60 ml/min/1.73 sqM) Est GFR (CKD-EPI)NonAf (>60 ml/min/1.73 sqM) Glucose (74-99) mg/dL Plasma Lactic Acid Jonah 0.9 (0.7-2.0) mmol/L Calcium (8.4-10.2) mg/dL Magnesium (1.6-2.3) mg/dL Total Bilirubin (0.2-1.3) mg/dL AST (14-36) U/L ALT (4-34) U/L Alkaline Phosphatase (38-126) U/L Troponin I <0.012 (0.000-0.034) ng/mL Total Protein (6.3-8.2) g/dL Albumin (3.5-5.0) g/dL Coronavirus (PCR) Detected A (Not Detectd) Disposition Clinical Impression: Chest pain, COVID-19 Disposition: ADMITTED IP TO THIS HOSP Referrals: Ale Eli MD [Primary Care Provider] - 1-2 days Time of Disposition: 12:27
--- NOTE | 2021-04-21 11:32 | XR ---
EXAMINATION TYPE: XR chest 2V DATE OF EXAM: 04/21/2021 COMPARISON: 04/07/2021 INDICATION: Difficulty breathing fever TECHNIQUE: Frontal and lateral views of the chest are obtained. FINDINGS: The heart size is normal. The pulmonary vasculature is normal. Patchy infiltrates are present in the posterior right upper and left mid lungs findings are nonspecif ic. Correlate for infectious etiology such as pneumonia. Given the time interval of the etiologies zhang ch as neoplasm should be considered. Consider additional workup with CT chest with contrast. IMPRESSION: 1. Patchy bilateral hilar opacities can be related to an infectious etiology. Other etiologies includ ing neoplasm should be considered. Consider follow-up with CT chest.
[2021-04-21 11:33] LABS: Anisocytosis Slight; Basophils % (A) 1 %; Eosinophils # (A) 0.1 k/uL (0-0.7); Eosinophils % (A) 1 %; HCT 30.5 % (34.0-46.0); HGB 9.1 gm/dL (11.4-16.0); Hypochromasia Marked; Lymphocytes % (A) 13 %; MCHC 29.7 g/dL (31.0-37.0); MCV 84.4 fL (80.0-100.0); Mean Platelet Volume 7.3; Monocytes # (A) 0.5 k/uL (0-1.0); Monocytes % (A) 7 %; Neutrophils % (A) 78 %; Platelet Count 452 k/uL (150-450); RBC 3.62 m/uL (3.80-5.40); RDW 17.9 % (11.5-15.5); WBC 7.7 k/uL (3.8-10.6)
[2021-04-21 11:53] LABS: Albumin 3.4 g/dL (3.5-5.0); Calcium 8.7 mg/dL (8.4-10.2); Magnesium 2.1 mg/dL (1.6-2.3); Potassium 4.9 mmol/L (3.5-5.1); Total Bilirubin 0.3 mg/dL (0.2-1.3)
[2021-04-21 12:19] LABS: INR 0.9 (<1.2); Partial Thromboplastin Time 26.4 sec (22.0-30.0); Prothrombin Time 9.4 sec (9.0-12.0)
[2021-04-21] MEDS ORDERED: BUTALB/APAP/CAFF 50-325-40MG TAB PO STA (12:26)
[2021-04-21] MEDS ORDERED: dexAMETHasone 2 MG TAB PO STA (12:27)
[2021-04-21] MEDS ORDERED: SODIUM CHLORIDE 0.9% 50 ML IVPB ONE (12:45)
[2021-04-21] MEDS ORDERED: BAMLANIVIMAB (EUA) 700 MG, ETESEVIMAB (EUA) 1,400 MG in SODIUM CHLORIDE 0.9% 100 ML IVPB ONE (12:45)
[2021-04-21] MEDS ORDERED: ASPIRIN 81 MG PO STA (14:13)
[2021-04-21] MEDS ORDERED: NITROGLYCERIN SL TABS 0.4 MG TAB SUBLINGUAL PRN (14:13)
[2021-04-21] MEDS ORDERED: HYDROcodone/APAP 10-325MG 1 EACH TAB PO ONE (15:22)
[2021-04-21] MEDS: BUTALB/APAP/CAFF 50-325-40MG TAB PO PRN (18:47)
[2021-04-21] MEDS: ALBUTEROL HFA INHALER INHALATION PRN (20:42)
[2021-04-21] MEDS: SYMBICORT 160-4.5 MCG INHALER INHALATION SCH (20:43)
[2021-04-21] MEDS: hydrOXYzine pamoate 25 MG CAP PO SCH (20:45)
[2021-04-21] MEDS: HYDROcodone/APAP 10-325MG 1 EACH TAB PO PRN (20:46)
[2021-04-21] MEDS: busPIRone HCl 10 MG TAB PO SCH (20:47)
[2021-04-21] MEDS: PANTOPRAZOLE 40 MG TABLET PO SCH (20:47)
[2021-04-21] MEDS: MIRTAZAPINE 15 MG TAB PO SCH (20:48)
--- NOTE | 2021-04-21 21:04 | HP ---
HISTORY AND PHYSICAL CHIEF COMPLAINTS: Shortness of breath, cough and headache. HISTORY OF PRESENT ILLNESS: This 76-year-old woman with a past medical history of multiple medical issues was recently admitted to [facility] with features of bilateral aspiration pneumonia. The patient was started on outpatient antibiotics with a PICC line. The patient was also on TPN through a midline on the left arm. The patient went home and currently the patient is complaining of cough and fever as well as some tiredness and weakness. The patient came to [facility]. Chest x-ray might have showed some minimal increase and patient was admitted for evaluation and treatment. White count is 7.6, hemoglobin 9.1. Sodium , potassium 4.8. Patient is [id number] at this time. The patient has a history of malnutrition also. There is no history of any fever, rigors or chills. No history of headache, loss of consciousness, seizures. The patient also had some chest pains in the anterior part of the chest. PAST MEDICAL HISTORY: History of asthma, COPD, GERD, memory impairment, history of DJD, history of migraine headaches, history of pancreatitis, spinal stenosis, history of back surgery, history of bowel resection, history of laminectomy, history of diskectomy, anxiety, depression, panic disorder. HOME MEDICATIONS: Reviewed. They include hydroxyzine, Duragesic patch, calcitriol, BuSpar Doses and other medications are reviewed. ALLERGIES: PROLIA, MORPHINE, DUST. SOCIAL HISTORY: No history of smoking. No history of alcohol intake. FAMILY HISTORY: History of coronary artery disease in the family. REVIEW OF SYSTEMS: ENT: Diminished hearing. Diminished vision. CARDIOVASCULAR SYSTEM: As mentioned earlier. RESPIRATORY SYSTEM: As mentioned earlier. GI: As mentioned earlier. : No dysuria. NERVOUS SYSTEM: As mentioned earlier. ALLERGY/IMMUNOLOGY: As mentioned earlier. HEMATOLOGY/ONCOLOGY: No history of anemia. ENDOCRINE: As mentioned earlier. CONSTITUTIONAL: As mentioned earlier. DERMATOLOGY: Negative. RHEUMATOLOGY: Negative. PSYCHIATRY: As mentioned earlier. PHYSICAL EXAMINATION: Patient alert and oriented x3. Pulse 101, blood pressure 140/81, respiration 18, temperature 98 degrees, pulse ox 98% on room air. HEENT: Conjunctivae normal. Oral mucosa moist. NECK: No jugular venous distention. No carotid bruit. No lymph node enlargement. CARDIOVASCULAR: S1, S2 muffled. RESPIRATION: Breath sounds diminished at the bases. A few scattered rhonchi and crackles. ABDOMEN: Soft, nontender. No mass palpable. LEGS: No edema. No swelling. NERVOUS SYSTEM: Higher functions as mentioned earlier. Moves all 4 limbs. No focal motor or sensory deficit. LYMPHATICS: No lymph node palpable in neck, axillae or groin. SKIN: No ulcer, rash, bleeding. JOINTS: No active deforming arthropathy. LAB STUDIES: WBC hemoglobin 9.1, sodium 135. ASSESSMENT: 1. Acute bilateral aspiration pneumonia with possibly failure of outpatient treatment. 2. Chest pain. Rule out coronary artery disease. 3. Rule out acute COVID-19 infection and acute COVID-19 pneumonia. 4. Chronic kidney disease, stage 3. 5. Hyponatremia. 6. Elevated AST and ALT. 7. Anemia, normocytic. 8. On TPN at home. 9. History of asthma, chronic obstructive pulmonary disease. 10.Gastroesophageal reflux disease. 11.History of hypothyroidism. 12.History of degenerative joint disease. 13.History of peptic ulcer disease. 14.History of pancreatitis. 15.History of spinal canal stenosis. 16.History of bowel resection. 17.History of laminectomy. 18.History of anxiety, depression, panic disorder. 19.Severe protein-calorie malnutrition; BMI of 16.8. RECOMMENDATIONS AND DISCUSSION: In this 76-year-old woman who presented with multiple complex medical issues, we will monitor the patient closely, continue the current medications, continue symptomatic treatment. Will continue the broad-spectrum IV antibiotics. I would also recommend a D- dimer, and if the D-dimer is positive, CT angio of the chest. Otherwise, continue the rest of the medications. Medications for COVID-19 also will be initiated. Prognosis is guarded because of multiple complex medical issues. Further recommendations to follow. Dr. Gregorio from Infectious Disease also will be consulted. Prognosis guarded. We will also consult Cardiology. Dr. Desir will follow tomorrow. MMODL / IJN: [id number] / [place]
[2021-04-21] MEDS: LORazepam 0.5 MG TAB PO SCH (23:03)
[2021-04-22] MEDS: FLUTICASONE 50MCG/SPRAY NASAL 16GM EA NOSTRIL SCH ×3 (05:05→21:49)
[2021-04-22] MEDS: BUTALB/APAP/CAFF 50-325-40MG TAB PO PRN ×3 (06:01→18:11)
[2021-04-22] MEDS: LEVOTHYROXINE 88 MCG TAB PO SCH (07:00)
[2021-04-22] MEDS: SYMBICORT 160-4.5 MCG INHALER INHALATION SCH ×2 (08:42→19:51)
[2021-04-22] MEDS ORDERED: FUROSEMIDE 20 MG TAB PO SCH (09:00)
[2021-04-22] MEDS ORDERED: ENOXAPARIN 40 MG/0.4 ML SYRINGE SQ SCH (09:00)
[2021-04-22] MEDS ORDERED: ASPIRIN 325 MG TAB PO SCH (09:00)
[2021-04-22 09:08] LABS: Basophils # (A) 0.01 X 10*3/uL (0.00-0.10); Basophils % (A) 0.2 %; Eosinophils # (A) 0.01 X 10*3/uL (0.04-0.35); Eosinophils % (A) 0.2 %; HCT 26.3 % (37.2-46.3); HGB 7.6 g/dL (12.0-15.0); Lymphocytes # (A) 1.86 X 10*3/uL (0.90-5.00); Lymphocytes % (A) 31.5 %; MCH 24.4 pg (27.0-32.0); MCHC 28.9 g/dL (32.0-37.0); MCV 84.3 fL (80.0-97.0); Mean Platelet Volume 8.8 fL (9.5-12.2); Monocytes # (A) 0.61 X 10*3/uL (0.20-1.00); Monocytes % (A) 10.3 %; Neutrophils # (A) 3.37 X 10*3/uL (1.80-7.70); Platelet Count 368 X 10*3/uL (140-440); RBC 3.12 X 10*6/uL (4.10-5.20); RDW 18.1 % (11.5-14.5); WBC 5.91 X 10*3/uL (4.50-10.00)
[2021-04-22] MEDS: dexAMETHasone 2 MG TAB PO SCH (09:23)
[2021-04-22] MEDS: ENOXAPARIN 30 MG/0.3 ML SYRINGE SQ SCH (09:23)
[2021-04-22] MEDS: HYDROcodone/APAP 10-325MG 1 EACH TAB PO PRN ×2 (09:24→14:55)
[2021-04-22] MEDS: ASPIRIN 81 MG PO SCH (09:24)
[2021-04-22 09:25] LABS: BUN/Creat Ratio 20.22 Ratio (12.00-20.00); Chol/HDL Ratio 4.42 Ratio; LDL Cholesterol,Calculated 118.8 mg/dL (0.0-131.0)
[2021-04-22] MEDS: hydrOXYzine pamoate 25 MG CAP PO SCH ×3 (09:25→21:48)
[2021-04-22] MEDS: busPIRone HCl 10 MG TAB PO SCH ×2 (09:25→21:47)
[2021-04-22] MEDS: PANTOPRAZOLE 40 MG TABLET PO SCH ×2 (09:25→21:53)
[2021-04-22 09:26] LABS: African American GFR (CKD) 43.5 (60.0-200.0); Blood Urea Nitrogen 27.9 mg/dL (9.0-27.0); Calcium 8.2 mg/dL (8.7-10.3); Chloride 100 mmol/L (96-109); Glucose 89 mg/dL (70-110); Non-African American GFR(CKD) 37.6 (60.0-200.0); Sodium 136 mmol/L (135-145)
[2021-04-22] MEDS: SODIUM CHLORIDE 0.9% 1,000 ML IV SCH ×2 (09:26→21:49)
--- NOTE | 2021-04-22 09:52 | US ---
EXAMINATION TYPE: US venous doppler duplex LE DATE OF EXAM: 04/22/2021 9:02 AM COMPARISON: NONE CLINICAL HISTORY: elevated d-dimer. History of deep venous thrombosis. COVID SIDE PERFORMED: Bilateral TECHNIQUE: The lower extremity deep venous system is examined utilizing real time linear array sonog jaguar with graded compression, doppler sonography and color-flow sonography. VESSELS IMAGED: Common Femoral Vein Deep Femoral Vein Greater Saphenous Vein * Femoral Vein Popliteal Vein Small Saphenous Vein * Proximal Calf Veins (* superficial vessels) There is normal flow, compressibility, vascular waveforms. Right Leg: no evidence of DVT Left Leg: no evidence of DVT IMPRESSION: No evident deep venous thrombosis within the lower extremities from the levels of the kne es centrally
[2021-04-22] MEDS: buPROPion XL 150 MG TAB.ER.24H PO SCH (10:06)
[2021-04-22] MEDS: buPROPion XL 300 MG TAB.ER.24H PO SCH (10:06)
--- NOTE | 2021-04-22 12:23 | P.CRDCN ---
History of Present Illness History of present illness: HISTORY OF PRESENTING ILLNESS This is a pleasant 76-year-old female past medical history significant for chronic kidney disease and COPD, gastric ulcer status post gastrectomy, systemic candidiasis, receives TPN for nutritional support. Recent admission for aspiration pneumonia. 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 We have been asked to see in consultation for chest pain. Patient presents to the emergency department with complaints of generalized fatigue, shortness of breath, fever, chills, cough and night sweats. She states she has had chest pain, located around her rib cage since she was diagnosed with aspiration pneumonia last month. Her chest pain is non-radiating. It aggravating by activity and coughing. She has had some nausea, no emesis. She denies any specific alleviating factors. She denies symptoms of orthopnea or PND. She denies history of CAD, [place], Stroke, hypertension, diabetes. She denies tobacco or alcohol use. On admission, patient found to be covid 19 positive Patient was recently admitted in February 2021 and March, diagnosed with persistent bilateral pneumonia and aspiration pneumonia, covid-19 was negative at that time. She currently has PICC line and receives TPN. DIAGNOSTICS EKG reveals sinus rhythm, heart rate 92, no significant ST-T wave abnormalities, prior EKG in February 2021 with similar findings Telemetry tracings indicate sinus mechanism, heart rate 70slow 100s Chest xray patchy bilateral opacities can be related to an infectious etiology, consider CT. Laboratory reviewed, WBC 5. hemoglobin 7.6, platelets 368, d-dimer 1.5, sodium 135, potassium 4.9, BUN 31, serum creatinine 1.3, AST 63, ALT 41, alkaline phosphatase 345, troponin negative 3 Most recent echocardiogram 03/2020 revealed an EF of 6065 percent, mild mitral regurgitation, mild tricuspid regurgitation Current home medications include hydroxyzine, fentanyl patch, calcitriol, BuSpar, Wellbutrin, potassium chloride, Protonix, Claritin, Synthroid, Lasix 20 mg daily, Symbicort, Fioricet, Flonase, albuterol inhaler REVIEW OF SYSTEMS At the time of my exam: CONSTITUTIONAL: + fever +chills. CARDIOVASCULAR: + chest pain, +shortness of breath,Denies orthopnea, PND or palpitations. RESPIRATORY: + cough. GASTROINTESTINAL: Denies abdominal pain, diarrhea, constipation, nausea or vomiting. MUSCULOSKELETAL: Denies myalgias. NEUROLOGIC: Denies numbness, tingling, headache or weakness. ENDOCRINE: Denies fatigue, weight change, polydipsia or polyurina. GENITOURINARY: Denies burning, hematuria or urgency with micturation. HEMATOLOGIC: +history of anemia Denies bleeding. PHYSICAL EXAMINATION Vitals reviewed CONSTITUTIONAL: No apparent distress. HEENT: Head is normocephalic. Pupils are equal, round. Sclerae anicteric. Mucous membranes of the mouth are moist. No JVD. No carotid bruit. CHEST EXAMINATION: Lungs are diminished to auscultation. There is chest wall tenderness is noted with deep breathing. HEART EXAMINATION: Regular rate and rhythm. S1, S2 heard. ABDOMEN: Soft, nontender. Positive bowel sounds. EXTREMITIES: no lower extremity edema and no calf tenderness. NEUROLOGIC EXAMINATION: Patient is awake, alert and oriented x3. ASSESSMENT Chest pain, atypical, acute coronary syndrome has ruled out Symptoms of generalized fatigue, shortness of breath, fever, chills, cough, night sweats COVID-19 Infection History of COPD Chronic kidney disease PLAN An acute coronary event has been ruled out with no EKG evidence of ischemia and negative cardiac enzymes. Obtain 2D echocardiogram and doppler study to assess cardiac structure and function. Further recommendations based on clinical course Thank you kindly for this consultation. Nurse Practitioner note has been reviewed, I agree with a documented findings and plan of care. Patient was seen and examined. 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 History of Any Multi-Drug Resistant Organisms: None Reported Past Surgical History: Back Surgery, Bowel Resection, Hysterectomy, Joint Replacement Additional Past Surgical History / Comment(s): LOWER BACK SURGERY lamenectomy/discetomy then had a revison of that sx. 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, nasal sx d/t broken nose, colonoscopy/egd, PAIN CLINIC PROCEDURES, PORT A CATH INSERTION, LT ADEOLA, Past Anesthesia/Blood Transfusion Reactions: No Reported Reaction Additional Past Anesthesia/Blood Transfusion Reaction / Comment(s): PT RECIEVED BLOOD TRANSFUSIONS AFTER STOMACH SURGERY Past Psychological History: Anxiety, Depression, Panic Disorder Smoking Status: Never smoker Past Alcohol Use History: None Reported Past Drug Use History: None Reported - Past Family History Father Family Medical History: Cancer, Coronary Artery Disease (CAD) Additional Family Medical History / Comment(s): FATHER HAD BLADDER AND KIDNEY CANCER. FATHER HAD TB WHEN HE WAS A CHILD .FATHER AT AGE 87. Mother Family Medical History: Cancer Additional Family Medical History / Comment(s): MOTHER AT AGE 58 OF OVARIAN CANCER. Medications and Allergies Home Medications Medication Instructions Recorded Confirmed Type Ferrous Sulfate [Iron (65 MG 325 mg PO DAILY@1200 11/06/15 04/21/21 History Elemental)] Levothyroxine Sodium [Synthroid] 88 mcg PO DAILY 06/07/19 04/21/21 History calcitrioL [Calcitriol] 1 mcg PO MOWEFR 06/07/19 04/21/21 History busPIRone HCL [Buspar] 30 mg PO BID 04/14/20 04/21/21 History Potassium Chloride ER [K-Dur 10] 30 meq PO DAILY@1200 04/18/20 04/21/21 History hydrOXYzine pamoate [hydrOXYzine 25 mg PO TID 04/18/20 04/21/21 History PAMOATE] Pantoprazole Sodium [Protonix] 40 mg PO BID 30 Days #60 tablet. 04/27/20 04/21/21 Rx Butalb/APAP/Caff 50-325-40Mg 1 tab PO BID PRN 06/30/20 04/21/21 History [Fioricet 50-325-40] buPROPion XL [Wellbutrin XL] 150 mg PO DAILY 11/04/20 04/21/21 History Furosemide [Lasix] 20 mg PO DAILY #6 tab 12/13/20 04/21/21 Rx HYDROcodone/APAP 10-325MG [[place] 1 tab PO BID PRN 12/13/20 04/21/21 History 10-325] fentaNYL 75MCG/HR PATCH [Duragesic 1 patch TRANSDERM Q72H 3 Days #3 12/13/20 04/21/21 Rx 75MCG/HR] patch Tpn 1 dose IV DAILY@1900 02/20/21 04/21/21 History buPROPion XL [Wellbutrin XL] 300 mg PO DAILY 02/20/21 04/21/21 History Albuterol Sulfate [Albuterol 2 puff INHALATION RT-Q6H PRN 04/07/21 04/21/21 History Sulfate Hfa] Budesonide/Formoterol Fumarate 2 puff INHALATION RT-BID 04/07/21 04/21/21 History [Symbicort 160-4.5 Mcg Inhaler] Fluticasone Nasal [place] [Flonase 2 spray EA NOSTRIL BID 04/07/21 04/21/21 History Nasal [place]] Loratadine [Claritin] 10 mg PO DAILY 04/07/21 04/21/21 History Mirtazapine [Remeron] 45 mg PO HS 04/07/21 04/21/21 History Allergies Allergy/AdvReac Type Severity Reaction Status Date / Time denosumab [From Prolia] Allergy SEVERE Verified 04/21/21 12:58 CALCIUM LOSS morphine AdvReac Confusion Verified 04/21/21 12:58 DUST Allergy Itching Uncoded 04/21/21 10:25 MOLDS Allergy Itching Uncoded 04/21/21 10:25 Physical Exam Vitals: Vital Signs Temp Pulse Resp BP Pulse Ox 04/22/21 01:33 93 16 121/71 04/21/21 22:31 103 H 16 133/78 99 04/21/21 20:50 93 15 127/92 98 04/21/21 18:48 101 H 18 140/81 98 04/21/21 15:25 103 H 16 142/81 99 04/21/21 13:35 85 16 133/78 98 04/21/21 12:18 99 18 145/83 98 04/21/21 10:21 98 F 107 H 18 165/88 98 Results 04/22/21 06:41 04/22/21 06:41 Cardiac Enzymes 04/21/21 04/21/21 04/21/21 Range/Units 11:05 11:05 15:42 AST 63 H (14-36) U/L Troponin I <0.012 <0.012 (0.000-0.034) ng/mL 04/21/21 Range/Units 21:15 AST (14-36) U/L Troponin I <0.012 (0.000-0.034) ng/mL Coagulation 04/21/21 Range/Units 11:05 PT 9.4 (9.0-12.0) sec APTT 26.4 (22.0-30.0) sec CBC 04/21/21 Range/Units 11:05 WBC 7.7 (3.8-10.6) k/uL RBC 3.62 L (3.80-5.40) m/uL Hgb 9.1 L (11.4-16.0) gm/dL Hct 30.5 L (34.0-46.0) % Plt Count 452 H (150-450) k/uL Comprehensive Metabolic Panel 04/21/21 Range/Units 11:05 Sodium 135 L (137-145) mmol/L Potassium 4.9 (3.5-5.1) mmol/L Chloride 96 L (98-107) mmol/L Carbon Dioxide 27 (22-30) mmol/L BUN 31 H (7-17) mg/dL Creatinine 1.34 H (0.52-1.04) mg/dL Glucose 116 H (74-99) mg/dL Calcium 8.7 (8.4-10.2) mg/dL AST 63 H (14-36) U/L ALT 41 H (4-34) U/L Alkaline Phosphatase 345 H (38-126) U/L Total Protein 7.0 (6.3-8.2) g/dL Albumin 3.4 L (3.5-5.0) g/dL Current Medications Generic Name Dose Route Start Last Admin Trade Name Freq PRN Reason Stop Dose Admin Acetaminophen/Butalbital/Caffeine 1 each 04/21/21 17:44 04/22/21 06:01 Butalb/Apap/Caff 50-325-40mg Tab PO 1 each BID PRN Administration Migraine Headache Hydrocodone Bitart/Acetaminophen 1 each 04/21/21 17:44 04/21/21 20:46 Hydrocodone/Apap 10-325mg 1 Each Tab PO 1 each BID PRN Administration Moderate Pain Albuterol Sulfate 2 puff 04/21/21 17:44 04/21/21 20:42 Albuterol Hfa Inhaler INHALATION 2 puff RT-Q6H PRN Administration Shortness Of Breath Aspirin 325 mg 04/22/21 09:00 Aspirin 325 Mg Tab PO DAILY CHAD Budesonide/Formoterol Fumarate 2 puff 04/21/21 20:00 04/21/21 20:43 Symbicort 160-4.5 Mcg Inhaler INHALATION 2 puff RT-BID [facility] Administration Bupropion HCl 150 mg 04/22/21 09:00 Bupropion Xl 150 Mg Tab.Er.24h PO DAILY [facility] Bupropion HCl 300 mg 04/22/21 09:00 Bupropion Xl 300 Mg Tab.Er.24h PO DAILY [facility] Buspirone HCl 30 mg 04/21/21 21:00 04/21/21 20:47 Buspirone Hcl 10 Mg Tab PO 30 mg BID [facility] Administration Calcitriol 1 mcg 04/22/21 09:00 Calcitriol 0.25 Mcg Cap PO MOWEFR [facility] Dexamethasone 6 mg 04/22/21 09:00 Dexamethasone 2 Mg Tab PO DAILY [facility] Enoxaparin Sodium 30 mg 04/22/21 09:00 Enoxaparin 30 Mg/0.3 Ml Syringe SQ DAILY [facility] Fentanyl 1 patch 04/22/21 09:00 Fentanyl 75mcg/Hr Patch TRANSDERM Q72H [facility] Protocol Fluticasone Propionate 2 spray 04/21/21 21:00 04/22/21 05:05 Fluticasone 50mcg/[place] Nasal 16gm EA NOSTRIL Not Given BID [facility] Furosemide 20 mg 04/22/21 09:00 Furosemide 20 Mg Tab PO DAILY [facility] Hydroxyzine Pamoate 25 mg 04/21/21 22:00 04/21/21 20:45 Hydroxyzine Pamoate 25 Mg Cap PO 25 mg TID [facility] Administration Levothyroxine Sodium 88 mcg 04/22/21 06:30 04/22/21 07:00 Levothyroxine 88 Mcg Tab PO 88 mcg DAILY@0630 [facility] Administration Lorazepam 0.5 mg 04/21/21 23:00 04/21/21 23:03 Lorazepam 0.5 Mg Tab PO 0.5 mg HS [facility] Administration Mirtazapine 45 mg 04/21/21 21:00 04/21/21 20:48 Mirtazapine 15 Mg Tab PO 45 mg HS [facility] Administration Nitroglycerin 0.4 mg 04/21/21 14:13 Nitroglycerin Sl Tabs 0.4 Mg Tab SUBLINGUAL Q5M PRN Chest Pain Pantoprazole Sodium 40 mg 04/21/21 21:00 04/21/21 20:47 Pantoprazole 40 Mg Tablet PO 40 mg BID [facility] Administration 04/21/21 11:05 04/21/21 11:05
[2021-04-22] MEDS: ALBUTEROL HFA INHALER INHALATION PRN ×2 (12:24→17:05)
--- NOTE | 2021-04-22 14:15 | P.CNPUL ---
History of Present Illness Consult date: 04/22/21 Requesting physician: Palmer Desir Reason for consult: dyspnea, cough, chest pain, COPD, hypoxemia, pneumonia, abnormal CXR/CT Chief complaint: Shortness of breath and chest pain. History of present illness: Pulmonary consult dated 04/22/2021. 76-year-old female, well-known to us, with a history of multiple episodes of aspiration pneumonia. The patient came into the emergency department, on April 21, complaining of shortness of breath, cough, headache, chest pain. She feels like someone is sitting on her chest. The patient was just recently in the hospital. The patient has now tested positive for coronavirus infection. Her chest x-ray shows diffuse bilateral infiltrates, which could be consistent with coronavirus associated pneumonia. The patient's currently on 2 L nasal cannula. She did not appear to be in any significant respiratory distress. She is not receiving any IV fluids. She did receive monoclonal antibodies on April 21. Dopplers of her bilateral lower extremities were negative for DVT. White count was 5.91, hemoglobin 7.6, hematocrit 26.3, and platelet count 368,000. D-dimer was 1.55. Sodium 136, potassium 5, chlorides 100, CO2 23, anion gap 13, BUN 27.9, and creatinine 1.4. The patient's troponins were negative 3. Review of Systems REVIEW OF SYSTEMS: CONSTITUTIONAL: Weakness. NEUROLOGIC: [ Negative.] HEENT: [ Negative.] CARDIAC: Chest heaviness. PULMONARY: Shortness of breath, chest congestion, and cough. GI: [Negative.] : [Negative.] RHEUMATOLOGIC: [ Negative.] IMMUNOLOGIC: [ Negative.] ENDOCRINE: [Negative. ] DERMATOLOGIC: [Negative.] Past Medical History Past Medical History: Asthma, COPD, GERD/Reflux, Memory Impairment, Respiratory Disorder, Thyroid Disorder Additional Past Medical History / Comment(s): 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 History of Any Multi-Drug Resistant Organisms: None Reported Past Surgical History: Back Surgery, Bowel Resection, Hysterectomy, Joint Replacement Additional Past Surgical History / Comment(s): LOWER BACK SURGERY lamenectomy/discetomy then had a revison of that sx. 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, nasal sx d/t broken nose, colonoscopy/egd, PAIN CLINIC PROCEDURES, PORT A CATH INSERTION, LT ADEOLA, Past Anesthesia/Blood Transfusion Reactions: No Reported Reaction Additional Past Anesthesia/Blood Transfusion Reaction / Comment(s): PT RECIEVED BLOOD TRANSFUSIONS AFTER STOMACH SURGERY Past Psychological History: Anxiety, Depression, Panic Disorder Smoking Status: Never smoker Past Alcohol Use History: None Reported Past Drug Use History: None Reported - Past Family History Father Family Medical History: Cancer, Coronary Artery Disease (CAD) Additional Family Medical History / Comment(s): FATHER HAD BLADDER AND KIDNEY CANCER. FATHER HAD TB WHEN HE WAS A CHILD .FATHER AT AGE 87. Mother Family Medical History: Cancer Additional Family Medical History / Comment(s): MOTHER AT AGE 58 OF OVARIAN CANCER. Medications and Allergies Home Medications Medication Instructions Recorded Confirmed Type Ferrous Sulfate [Iron (65 MG 325 mg PO DAILY@1200 11/06/15 04/21/21 History Elemental)] Levothyroxine Sodium [Synthroid] 88 mcg PO DAILY 06/07/19 04/21/21 History calcitrioL [Calcitriol] 1 mcg PO MOWEFR 06/07/19 04/21/21 History busPIRone HCL [Buspar] 30 mg PO BID 04/14/20 04/21/21 History Potassium Chloride ER [K-Dur 10] 30 meq PO DAILY@1200 04/18/20 04/21/21 History hydrOXYzine pamoate [hydrOXYzine 25 mg PO TID 04/18/20 04/21/21 History PAMOATE] Pantoprazole Sodium [Protonix] 40 mg PO BID 30 Days #60 tablet. 04/27/20 04/21/21 Rx Butalb/APAP/Caff 50-325-40Mg 1 tab PO BID PRN 06/30/20 04/21/21 History [Fioricet 50-325-40] buPROPion XL [Wellbutrin XL] 150 mg PO DAILY 11/04/20 04/21/21 History Furosemide [Lasix] 20 mg PO DAILY #6 tab 12/13/20 04/21/21 Rx HYDROcodone/APAP 10-325MG [[place] 1 tab PO BID PRN 12/13/20 04/21/21 History 10-325] fentaNYL 75MCG/HR PATCH [Duragesic 1 patch TRANSDERM Q72H 3 Days #3 12/13/20 04/21/21 Rx 75MCG/HR] patch Tpn 1 dose IV DAILY@1900 02/20/21 04/21/21 History buPROPion XL [Wellbutrin XL] 300 mg PO DAILY 02/20/21 04/21/21 History Albuterol Sulfate [Albuterol 2 puff INHALATION RT-Q6H PRN 04/07/21 04/21/21 History Sulfate Hfa] Budesonide/Formoterol Fumarate 2 puff INHALATION RT-BID 04/07/21 04/21/21 History [Symbicort 160-4.5 Mcg Inhaler] Fluticasone Nasal [place] [Flonase 2 spray EA NOSTRIL BID 04/07/21 04/21/21 History Nasal [place]] Loratadine [Claritin] 10 mg PO DAILY 04/07/21 04/21/21 History Mirtazapine [Remeron] 45 mg PO HS 04/07/21 04/21/21 History Allergies Allergy/AdvReac Type Severity Reaction Status Date / Time denosumab [From Prolia] Allergy SEVERE Verified 04/21/21 12:58 CALCIUM LOSS morphine AdvReac Confusion Verified 04/21/21 12:58 DUST Allergy Itching Uncoded 04/21/21 10:25 MOLDS Allergy Itching Uncoded 04/21/21 10:25 Physical Exam Osteopathic Statement: *. No significant issues noted on an osteopathic structural exam other than those noted in the History and Physical/Consult. Vitals: Vital Signs Pulse Resp BP Pulse Ox 04/22/21 13:32 92 22 131/83 97 04/22/21 11:52 73 22 127/77 100 04/22/21 08:11 73 20 120/74 96 04/22/21 01:33 93 16 121/71 04/21/21 22:31 103 H 16 133/78 99 04/21/21 20:50 93 15 127/92 98 04/21/21 18:48 101 H 18 140/81 98 04/21/21 15:25 103 H 16 142/81 99 No acute distress, oriented 3. Patient is very cachectic and frail appearing. HEENT examination is grossly unremarkable. Mucous membranes are dry. Neck supple. Full range of motion. No adenopathy thyromegaly or neck vein distention. Cardiovascular examination reveals regular rhythm rate. S1-S2 normal. No S3 or S4. No discernible murmur noted. Heart sounds are distant. Heart rate 92 bpm. Lungs reveal bilateral diffuse rhonchi. Scattered wheezes are noted. Scattered crackles are appreciated. Breath sounds equal bilaterally. Abdomen soft, without bowel sounds. No masses. No tenderness. Extremities are intact. No cyanosis clubbing or edema. Skin is without rash or lesion. Neurologic examination is brief but nonfocal. Results - Laboratory Findings CBC and BMP: 04/22/21 06:41 04/22/21 06:41 PT/INR, D-dimer PT 9.4 sec (9.0-12.0) 04/21/21 11:05 INR 0.9 (<1.2) 04/21/21 11:05 D-Dimer 1.55 mg/L FEU (<0.60) H 04/21/21 21:15 Abnormal lab findings: Abnormal Labs 04/21/21 04/21/21 04/21/21 11:05 11:05 11:05 RBC 3.62 L Hgb 9.1 L Hct 30.5 L MCH MCHC 29.7 L RDW 17.9 H Plt Count 452 H MPV Immature Gran # Eosinophils # D-Dimer Sodium 135 L Chloride 96 L BUN 31 H Creatinine 1.34 H Est GFR (CKD-EPI)AfAm Est GFR (CKD-EPI)NonAf BUN/Creatinine Ratio Glucose 116 H Calcium AST 63 H ALT 41 H Alkaline Phosphatase 345 H Albumin 3.4 L Coronavirus (PCR) Detected A 04/21/21 04/22/21 04/22/21 21:15 06:41 06:41 RBC 3.12 L Hgb 7.6 L Hct 26.3 L MCH 24.4 L MCHC 28.9 L RDW 18.1 H Plt Count MPV 8.8 L Immature Gran # 0.05 H Eosinophils # 0.01 L D-Dimer 1.55 H Sodium Chloride BUN 27.9 H Creatinine Est GFR (CKD-EPI)AfAm 43.5 L Est GFR (CKD-EPI)NonAf 37.6 L BUN/Creatinine Ratio 20.22 H Glucose Calcium 8.2 L AST ALT Alkaline Phosphatase Albumin Coronavirus (PCR) - Diagnostic Findings Chest x-ray: image reviewed U/S of Legs: image reviewed Assessment and Plan Assessment: Acute shortness of breath, likely related to coronavirus associated pneumonia. History of COPD with multiple COPD exacerbations. History of chronic aspiration pneumonia. Gastroesophageal reflux disease. History of hypothyroidism. History of migraine cephalgia. History of pancreatitis. History of chronic kidney disease. History of anorexia/cachexia syndrome. Plan: Plan dated 04/22/2021. The patient did receive monoclonal antibody on April 21. Currently, the patient is on 2 L nasal cannula. She's also receiving Symbicort, and an albuterol inhaler. In addition, the patient is receiving Decadron 6 mg a day, and Lovenox. The patient should get typical vitamins. Additional recommend ations and suggestions are forthcoming. Prognosis is guarded. The patient is getting saline at 75 mL an hour. Additional recommendations and suggestions are forthcoming. We will continue to follow and make recommendations where appropriate. Time with Patient: Greater than 30
--- NOTE | 2021-04-22 16:00 | ECHOF ---
Referral Reason:chest pain, shortness of breath MEASUREMENTS -------- HEIGHT: 157.5 cm WEIGHT: 41.7 kg BP: 127/77 RVIDd: 2.6 cm (< 3.3) IVSd: 1.0 cm (0.6 - 1.1) LVIDd: 3.2 cm (3.9 - 5.3) LVPWd: 0.9 cm (0.6 - 1.1) IVSs: 1.5 cm LVIDs: 2.1 cm LVPWs: 1.2 cm LA Diam: 2.5 cm (2.7 - 3.8) Ao Diam: 3.4 cm (2.0 - 3.7) AV Cusp: 1.7 cm (1.5 - 2.6) MV EXCURSION: 8.590 mm (> 18.000) MV EF SLOPE: 29 mm/s (70 - 150) EPSS: 0.7 cm MV E Ric: 0.94 m/s MV DecT: 286 ms MV A Ric: 1.22 m/s MV E/A Ratio: 0.77 RAP: 5.00 mmHg RVSP: 21.56 mmHg FINDINGS -------- Sinus rhythm. This was a technically adequate study. The left ventricular size is normal. Left ventricular wall thickness is normal. Overall left vent ricular systolic function is normal with, an EF between 60 - 65 %. The right ventricle is normal in size. The left atrium is normal in size. The right atrium is normal in size. Interatrial and interventricular septum intact. The aortic valve is trileaflet, and appears structurally normal. No aortic stenosis or regurgitation. Mild mitral annular calcification present. Mild tricuspid regurgitation present. Right ventricular systolic pressure is normal at < 35 mmHg. The pulmonic valve is normal. The aortic root size is normal. Normal inferior vena cava with normal inspiratory collapse consistent with estimated right atrial pre ssure of 5 mmHg. There is no pericardial effusion. CONCLUSIONS -------- 1. The left ventricular size is normal. 2. Left ventricular wall thickness is normal. 3. Overall left ventricular systolic function is normal with, an EF between 60 - 65 %. 4. The aortic valve is trileaflet, and appears structurally normal. No aortic stenosis or regurgitati on. 5. Mild mitral annular calcification present. 6. Mild tricuspid regurgitation present. 7. There is no pericardial effusion. HOUSE PARENT: Meenakshi Alcantara RDCS
[2021-04-22] MEDS: MIRTAZAPINE 15 MG TAB PO SCH (21:47)
[2021-04-22] MEDS: LORazepam 0.5 MG TAB PO SCH (21:53)
[2021-04-23] MEDS: HYDROcodone/APAP 10-325MG 1 EACH TAB PO PRN ×3 (02:36→22:10)
[2021-04-23] MEDS: FLUTICASONE 50MCG/SPRAY NASAL 16GM EA NOSTRIL SCH ×2 (07:44→20:12)
[2021-04-23] MEDS: BUTALB/APAP/CAFF 50-325-40MG TAB PO PRN ×2 (07:45→18:16)
[2021-04-23] MEDS: PANTOPRAZOLE 40 MG TABLET PO SCH ×2 (07:46→20:11)
[2021-04-23] MEDS: ASPIRIN 81 MG PO SCH (07:46)
[2021-04-23] MEDS: dexAMETHasone 2 MG TAB PO SCH (07:47)
[2021-04-23] MEDS: busPIRone HCl 10 MG TAB PO SCH ×2 (07:47→20:11)
[2021-04-23] MEDS: ENOXAPARIN 30 MG/0.3 ML SYRINGE SQ SCH (07:47)
[2021-04-23] MEDS: hydrOXYzine pamoate 25 MG CAP PO SCH ×3 (07:48→22:09)
[2021-04-23] MEDS: buPROPion XL 300 MG TAB.ER.24H PO SCH (07:48)
[2021-04-23] MEDS: buPROPion XL 150 MG TAB.ER.24H PO SCH (07:50)
[2021-04-23] MEDS: LEVOTHYROXINE 88 MCG TAB PO SCH (07:50)
[2021-04-23] MEDS: ALBUTEROL HFA INHALER INHALATION PRN ×4 (08:22→20:14)
[2021-04-23] MEDS: SYMBICORT 160-4.5 MCG INHALER INHALATION SCH ×2 (08:22→20:14)
--- NOTE | 2021-04-23 08:39 | P.CONS ---
History of Present Illness - Reason for Consult Consult date: 04/22/21 covid 19 pneumonia Requesting physician: Aracely Macedo - Chief Complaint shortness of breath x days - History of Present Illness History of present illness : Patient is a 76-year-old female with a past medical history difficult for bowel resection Charcot syndrome in this patient on chronic TPN patient was recently admitted to this facility and did have evidence of candidemia secondary to the port infection which was subsequently discontinued patient afterwards received a PICC line to the left upper extremity and has completed her antifungal therapy patient is now presenting to the [facility] ER yesterday morning for evaluation of cough and increased shortness of breath on minimal exertion and this patient symptom is going on for almost a week patient also complaining of some chest heaviness with exertion and did have difficulty at all because of shortness of breath patient denies having any fever or any chills and the patient not vaccinated for COVID-19 patient on presentation to the hospital was afebrile and no fever has been recorded subsequently no documented hypoxemia on admission as the patient been daily 200% on 2 L nasal cannula patient did have a normal white count with no fever lymphopenia did have elevated BUN and creatinine level exams are mildly elevated patient did have positive Covid testing chest x-ray patchy bilateral hilar opacities likely infectious etiology patient has been admitted to hospital infectious disease was consulted for further management Review of system: CONSTITUTIONAL: Positive for weakness denies high-grade fever. EYES: No complaint. ENT: No complaint. RESPIRATORY: As per history of present illness. CARDIOVASCULAR: No complaint. GENITOURINARY: No complaint. GASTROINTESTINAL: No complaint. MUSCULOSKELETAL: No complaint. INTEGUMENTARY: No complaint. PSYCHOLOGIC: No complaint. ENDOCRINE: No complaint. NEUROLOGIC: No complaint. Past medical history : Reviewed, documented below Past surgical history : Reviewed, documented below Social history: Reviewed, documented below Medications: Reviewed, as documented below EXAMINATION: Vital sigans= Reviewed and documented below GENERAL DESCRIPTION: Elderly female lying in bed, no distress. No tachypnea or accessory muscle of respiration use. HEENT: Shows Pallor , no scleral icterus. Oral mucous membrane is dry. NECK: Trachea central, no thyromegaly. LUNGS: Unlabored breathing. Decrease intensity of breath sounds. No wheeze or crackle. HEART: S1, S2, regular rate and rhythm. ABDOMEN: Soft, no tenderness , guarding or rigidity EXTREMITIES: No edema of feet. SKIN: No rash, no masses palpable. NEUROLOGICAL: The patient is awake, alert, oriented x3, mood and affect normal. LABS AND RADIOLOGY: Reviewed results see below Assessment : Patient presented to hospital with increasing shortness of breath and this patient evidence of bilateral perihilar infiltrate on the chest x-ray patient did have positive Covid test and symptom has been going on for more than a week currently out of the therapeutic window for remdesivir per [facility] policy patient also do not have any documented hypoxemia during this admission and no evidence of any secondary bacterial pneumonia Plan: 1-patient to continue with the Lovenox dexamethasone zinc and ascorbic acid 2-droplet isolation and respiratory support 3-no need for systemic antibiotic therapy We will follow on clinical condition and cultures to further adjust medication if needed Thank you for this consultation we will follow the patient along with you Past Medical History Past Medical History: Asthma, COPD, GERD/Reflux, Memory Impairment, Respiratory Disorder, Thyroid Disorder Additional Past Medical History / Comment(s): 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 History of Any Multi-Drug Resistant Organisms: None Reported Past Surgical History: Back Surgery, Bowel Resection, Hysterectomy, Joint Replacement Additional Past Surgical History / Comment(s): LOWER BACK SURGERY lamenectomy/discetomy then had a revison of that sx. 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, nasal sx d/t broken nose, colonoscopy/egd, PAIN CLINIC PROCEDURES, PORT A CATH INSERTION, LT ADEOLA, Past Anesthesia/Blood Transfusion Reactions: No Reported Reaction Additional Past Anesthesia/Blood Transfusion Reaction / Comm: PT RECIEVED BLOOD TRANSFUSIONS AFTER STOMACH SURGERY Past Psychological History: Anxiety, Depression, Panic Disorder Smoking Status: Never smoker Past Alcohol Use History: None Reported Past Drug Use History: None Reported - Past Family History Father Family Medical History: Cancer, Coronary Artery Disease (CAD) Additional Family Medical History / Comment(s): FATHER HAD BLADDER AND KIDNEY CANCER. FATHER HAD TB WHEN HE WAS A CHILD .FATHER AT AGE 87. Mother Family Medical History: Cancer Additional Family Medical History / Comment(s): MOTHER AT AGE 58 OF OVARIAN CANCER. Medications and Allergies Home Medications Medication Instructions Recorded Confirmed Type Ferrous Sulfate [Iron (65 MG 325 mg PO DAILY@1200 11/06/15 04/21/21 History Elemental)] Levothyroxine Sodium [Synthroid] 88 mcg PO DAILY 06/07/19 04/21/21 History calcitrioL [Calcitriol] 1 mcg PO MOWEFR 06/07/19 04/21/21 History busPIRone HCL [Buspar] 30 mg PO BID 04/14/20 04/21/21 History Potassium Chloride ER [K-Dur 10] 30 meq PO DAILY@1200 04/18/20 04/21/21 History hydrOXYzine pamoate [hydrOXYzine 25 mg PO TID 04/18/20 04/21/21 History PAMOATE] Pantoprazole Sodium [Protonix] 40 mg PO BID 30 Days #60 tablet. 04/27/2004/21 Rx Butalb/APAP/Caff 50-325-40Mg 1 tab PO BID PRN 06/30/20 04/21/21 History [Fioricet 50-325-40] buPROPion XL [Wellbutrin XL] 150 mg PO DAILY 11/04/20 04/21/21 History Furosemide [Lasix] 20 mg PO DAILY #6 tab 12/13/20 04/21/21 Rx HYDROcodone/APAP 10-325MG [[place] 1 tab PO BID PRN 12/13/20 04/21/21 History 10-325] fentaNYL 75MCG/HR PATCH [Duragesic 1 patch TRANSDERM Q72H 3 Days #3 12/13/20 04/21/21 Rx 75MCG/HR] patch Tpn 1 dose IV DAILY@1900 02/20/21 04/21/21 History buPROPion XL [Wellbutrin XL] 300 mg PO DAILY 02/20/21 04/21/21 History Albuterol Sulfate [Albuterol 2 puff INHALATION RT-Q6H PRN 04/07/21 04/21/21 History Sulfate Hfa] Budesonide/Formoterol Fumarate 2 puff INHALATION RT-BID 04/07/21 04/21/21 History [Symbicort 160-4.5 Mcg Inhaler] Fluticasone Nasal [place] [Flonase 2 spray EA NOSTRIL BID 04/07/21 04/21/21 History Nasal [place]] Loratadine [Claritin] 10 mg PO DAILY 04/07/21 04/21/21 History Mirtazapine [Remeron] 45 mg PO HS 04/07/21 04/21/21 History Allergies Allergy/AdvReac Type Severity Reaction Status Date / Time denosumab [From Prolia] Allergy SEVERE Verified 04/21/21 12:58 CALCIUM LOSS morphine AdvReac Confusion Verified 04/21/21 12:58 DUST Allergy Itching Uncoded 04/21/21 10:25 MOLDS Allergy Itching Uncoded 04/21/21 10:25 Physical Exam Vitals: Vital Signs Pulse Resp BP Pulse Ox 04/22/21 08:11 73 20 120/74 96 04/22/21 01:33 93 16 121/71 04/21/21 22:31 103 H 16 133/78 99 04/21/21 20:50 93 15 127/92 98 04/21/21 18:48 101 H 18 140/81 98 04/21/21 15:25 103 H 16 142/81 99 04/21/21 13:35 85 16 133/78 98 04/21/21 12:18 99 18 145/83 98 Results CBC & Chem 7: 04/22/21 06:41 04/22/21 06:41 Labs: Abnormal Lab Results - Last 24 Hours (Table) 04/21/21 04/21/21 04/21/21 Range/Units 11:05 11:05 11:05 RBC 3.62 L (3.80-5.40) m/uL Hgb 9.1 L (11.4-16.0) gm/dL Hct 30.5 L (34.0-46.0) % MCH (27.0-32.0) pg MCHC 29.7 L (31.0-37.0) g/dL RDW 17.9 H (11.5-15.5) % Plt Count 452 H (150-450) k/uL MPV (9.5-12.2) fL Immature Gran # (0.00-0.04) X 10*3/uL Eosinophils # (0.04-0.35) X 10*3/uL D-Dimer (<0.60) mg/L FEU Sodium 135 L (137-145) mmol/L Chloride 96 L (98-107) mmol/L BUN 31 H (7-17) mg/dL Creatinine 1.34 H (0.52-1.04) mg/dL Est GFR (CKD-EPI)AfAm (60.0-200.0) Est GFR (CKD-EPI)NonAf (60.0-200.0) BUN/Creatinine Ratio (12.00-20.00) Ratio Glucose 116 H (74-99) mg/dL Calcium (8.7-10.3) mg/dL AST 63 H (14-36) U/L ALT 41 H (4-34) U/L Alkaline Phosphatase 345 H (38-126) U/L Albumin 3.4 L (3.5-5.0) g/dL Coronavirus (PCR) Detected A (Not Detectd) 04/21/21 04/22/21 04/22/21 Range/Units 21:15 06:41 06:41 RBC 3.12 L (3.80-5.40) m/uL Hgb 7.6 L (11.4-16.0) gm/dL Hct 26.3 L (34.0-46.0) % MCH 24.4 L (27.0-32.0) pg MCHC 28.9 L (31.0-37.0) g/dL RDW 18.1 H (11.5-15.5) % Plt Count (150-450) k/uL MPV 8.8 L (9.5-12.2) fL Immature Gran # 0.05 H (0.00-0.04) X 10*3/uL Eosinophils # 0.01 L (0.04-0.35) X 10*3/uL D-Dimer 1.55 H (<0.60) mg/L FEU Sodium (137-145) mmol/L Chloride (98-107) mmol/L BUN 27.9 H (7-17) mg/dL Creatinine (0.52-1.04) mg/dL Est GFR (CKD-EPI)AfAm 43.5 L (60.0-200.0) Est GFR (CKD-EPI)NonAf 37.6 L (60.0-200.0) BUN/Creatinine Ratio 20.22 H (12.00-20.00) Ratio Glucose (74-99) mg/dL Calcium 8.2 L (8.7-10.3) mg/dL AST (14-36) U/L ALT (4-34) U/L Alkaline Phosphatase (38-126) U/L Albumin (3.5-5.0) g/dL Coronavirus (PCR) (Not Detectd)
[2021-04-23 10:40] VITALS: BMI 16.8
[2021-04-23 11:55] LABS: Ionized Calcium 4.5 mg/dL (4.5-5.3)
[2021-04-23] MEDS: SODIUM CHLORIDE 0.9% 1,000 ML IV SCH (12:08)
[2021-04-23 12:32] LABS: ALT 73 U/L (4-34); African American GFR (CKD) 40 (>60 ml/min/1.73 sqM); Albumin 3.5 g/dL (3.5-5.0); Albumin/Globulin Ratio 0.9; Anion Gap 13 mmol/L; Blood Urea Nitrogen 24 mg/dL (7-17); Calcium 8.3 mg/dL (8.4-10.2); Carbon Dioxide 18 mmol/L (22-30); Chloride 106 mmol/L (98-107); Glucose 127 mg/dL (74-99); Non-African American GFR(CKD) 35 (>60 ml/min/1.73 sqM); Phosphorus 3.3 mg/dL (2.5-4.5); Sodium 137 mmol/L (137-145); Total Bilirubin 0.7 mg/dL (0.2-1.3); Total Protein 7.5 g/dL (6.3-8.2)
[2021-04-23 12:45] LABS: AST 122 U/L (14-36); Magnesium 2.4 mg/dL (1.6-2.3)
[2021-04-23 12:46] LABS: Alkaline Phosphatase 349 U/L (38-126)
--- NOTE | 2021-04-23 13:54 | P.PN ---
Subjective Progress Note Date: 04/23/21 Principal diagnosis: Shortness of breath. Pulmonary consult dated 04/22/2021. 76-year-old female, well-known to us, with a history of multiple episodes of aspiration pneumonia. The patient came into the emergency department, on April 21, complaining of shortness of breath, cough, headache, chest pain. She feels like someone is sitting on her chest. The patient was just recently in the hospital. The patient has now tested positive for coronavirus infection. Her chest x-ray shows diffuse bilateral infiltrates, which could be consistent with coronavirus associated pneumonia. The patient's currently on 2 L nasal cannula. She did not appear to be in any significant respiratory distress. She is not receiving any IV fluids. She did receive monoclonal antibodies on April 21. Dopplers of her bilateral lower extremities were negative for DVT. White count was 5.91, hemoglobin 7.6, hematocrit 26.3, and platelet count 368,000. D-dimer was 1.55. Sodium 136, potassium 5, chlorides 100, CO2 23, anion gap 13, BUN 27.9, and creatinine 1.4. The patient's troponins were negative 3. Progress note dated 04/23/2021. The patient's resting comfortably in room 631. She is on 3 L nasal cannula. She's getting saline at 75 mL an hour. She is feeling much better. She was admitted with a diagnosis of acute hypoxemic respiratory failure secondary to coronavirus associated pneumonia. Her pro-calcitonin level is 0.22. The patient is receiving appropriate medications. I discussed that with him today. She did receive monoclonal antibodies on April 21. Labs today include a sodium 137, potassium 5, chlorides 106, anion gap 13, CO2 18, BUN 24, creatinine 1.47. AST was 122 with an ALT of 73. Objective - Vital Signs Vital signs: Vital Signs Temp 97.4 F L 04/23/21 08:00 Pulse 70 04/23/21 08:00 Resp 16 04/23/21 08:00 BP 128/56 04/23/21 08:00 Pulse Ox 100 04/23/21 08:00 Intake & Output 04/22/21 04/23/21 04/23/21 18:59 06:59 18:59 Weight 41.73 kg 41.73 kg Other: Voiding Method Toilet # Voids 2 1 - Exam No acute distress, oriented 3. Patient is very cachectic and frail appearing. The patient is currently on 3 L nasal cannula. Saturations are 93%. HEENT examination is grossly unremarkable. Mucous membranes are dry. Neck supple. Full range of motion. No adenopathy thyromegaly or neck vein distention. Cardiovascular examination reveals regular rhythm rate. S1-S2 normal. No S3 or S4. No discernible murmur noted. Heart sounds are distant. Heart rate 84 bpm. Lungs reveal bilateral diffuse rhonchi. Scattered wheezes are noted. Scattered crackles are appreciated. Breath sounds equal bilaterally. Abdomen soft, without bowel sounds. No masses. No tenderness. Extremities are intact. No cyanosis clubbing or edema. Skin is without rash or lesion. Neurologic examination is brief but nonfocal. - Labs CBC & Chem 7: 04/22/21 06:41 04/23/21 11:12 Labs: Abnormal Lab Results - Last 24 Hours (Table) 04/22/21 04/23/21 Range/Units 06:41 11:12 Carbon Dioxide 18 L (22-30) mmol/L BUN 24 H (7-17) mg/dL Creatinine 1.47 H (0.52-1.04) mg/dL Glucose 127 H (74-99) mg/dL Calcium 8.3 L (8.4-10.2) mg/dL Magnesium 2.4 H (1.6-2.3) mg/dL AST 122 H (14-36) U/L ALT 73 H (4-34) U/L Alkaline Phosphatase 349 H (38-126) U/L Procalcitonin 0.22 H (0.02-0.09) ng/mL Microbiology - Last 24 Hours (Table) 04/21/21 11:05 Blood Culture - Preliminary Blood No Growth after 48 hours 04/21/21 11:30 Blood Culture - Preliminary Blood No Growth after 24 hours Assessment and Plan Assessment: Acute shortness of breath, likely related to coronavirus associated pneumonia. History of COPD with multiple COPD exacerbations. History of chronic aspiration pneumonia. Gastroesophageal reflux disease. History of hypothyroidism. History of migraine cephalgia. History of pancreatitis. History of chronic kidney disease. History of anorexia/cachexia syndrome. Plan: Plan dated 04/22/2021. The patient did receive monoclonal antibody on April 21. Currently, the patient is on 2 L nasal cannula. She's also receiving Symbicort, and an albuterol inhaler. In addition, the patient is receiving Decadron 6 mg a day, and Lovenox. The patient should get typical vitamins. Additional recommendations and suggestions are forthcoming. Prognosis is guarded. The patient is getting saline at 75 mL an hour. Additional recommendations and suggestions are forthcoming. We will continue to follow and make recommendations where appropriate. Plan dated 04/23/2021. The patient currently is doing well. She did receive monoclonal antibodies on April 21. She is currently on 3 L nasal cannula. She's getting saline at 75 mL an hour. Pro-calcitonin level was 0.22. The patient's on Decadron, Lovenox, vitamin C, vitamin D3, and zinc. She is also receiving Symbicort, an albuterol inhaler. We will continue to follow make recommendations where appropriate. Prognosis is certainly guarded. Time with Patient: Less than 30
[2021-04-23] MEDS ORDERED: MVI, ADULT NO.4 WITH VIT K 10 ML, TRACE (CONC-1ML/DOSE) 1 ML in AMINO ACID 5%-D20W+LYTE... IV ONE ×3 (15:00)
[2021-04-23] MEDS ORDERED: FAT EMULSION 20% 500 ML in EMPTY BAG 1 BAG IV SCH (16:00)
--- NOTE | 2021-04-23 19:20 | P.PN ---
Subjective Progress Note Date: 04/22/21 Louise Sutton is a 76-year-old female patient of Dr. Eli who was admitted to [facility] on 04/21/2021 history and physical was done by Dr. Macedo who was covering for me. I am taking care over the care of this patient on 04/22/2021 Patient has a known history of multiple admissions for aspiration pneumonia she is currently maintained on TPN She presented with symptoms of cough and shortness of breath however testing at this time in the emergency room was positive for COVID-19 she was admitted to medical floor pulmonary consultation was requested On 04/22/2021 patient was seen and examined on the medical floor she is complaining of cough , and complaining of pain in her hips when she coughs otherwise she denies any complaints, there is no fever or chills no headache or dizziness no chest pain no shortness of breath no nausea or vomiting no abdominal pain no diarrhea and no urinary symptoms Objective - Vital Signs Vital signs: Vital Signs Temp 98 F 04/21/21 10:21 Pulse 74 04/22/21 18:12 Resp 18 04/22/21 18:12 BP 145/55 04/22/21 18:12 Pulse Ox 97 04/22/21 18:12 Intake & Output 04/21/21 04/22/21 04/22/21 18:59 06:59 18:59 Weight 41.73 kg 41.73 kg - Exam In general patient is alert and oriented x 3 in no distress HEENT head normocephalic and atraumatic Neck is supple no JVD no goiter no lymphadenopathy no carotid bruit Chest examination reveals a scattered crackles bilaterally no wheezing Cardiac exam reveals regular heart sounds S1 and S2 no gallops no murmurs Abdomen is soft nontender no organomegaly with normal bowel sounds Extremity exam reveals no edema no cyanosis or clubbing Neurological examination reveals no gross focal deficits - Labs CBC & Chem 7: 04/22/21 06:41 04/23/21 11:12 Labs: Abnormal Lab Results - Last 24 Hours (Table) 04/21/21 04/22/21 04/22/21 Range/Units 21:15 06:41 06:41 RBC 3.12 L (4.10-5.20) X 10*6/uL Hgb 7.6 L (12.0-15.0) g/dL Hct 26.3 L (37.2-46.3) % MCH 24.4 L (27.0-32.0) pg MCHC 28.9 L (32.0-37.0) g/dL RDW 18.1 H (11.5-14.5) % MPV 8.8 L (9.5-12.2) fL Immature Gran # 0.05 H (0.00-0.04) X 10*3/uL Eosinophils # 0.01 L (0.04-0.35) X 10*3/uL D-Dimer 1.55 H (<0.60) mg/L FEU BUN 27.9 H (9.0-27.0) mg/dL Est GFR (CKD-EPI)AfAm 43.5 L (60.0-200.0) Est GFR (CKD-EPI)NonAf 37.6 L (60.0-200.0) BUN/Creatinine Ratio 20.22 H (12.00-20.00) Ratio Calcium 8.2 L (8.7-10.3) mg/dL Procalcitonin (0.02-0.09) ng/mL 04/22/21 Range/Units 06:41 RBC (4.10-5.20) X 10*6/uL Hgb (12.0-15.0) g/dL Hct (37.2-46.3) % MCH (27.0-32.0) pg MCHC (32.0-37.0) g/dL RDW (11.5-14.5) % MPV (9.5-12.2) fL Immature Gran # (0.00-0.04) X 10*3/uL Eosinophils # (0.04-0.35) X 10*3/uL D-Dimer (<0.60) mg/L FEU BUN (9.0-27.0) mg/dL Est GFR (CKD-EPI)AfAm (60.0-200.0) Est GFR (CKD-EPI)NonAf (60.0-200.0) BUN/Creatinine Ratio (12.00-20.00) Ratio Calcium (8.7-10.3) mg/dL Procalcitonin 0.22 H (0.02-0.09) ng/mL Microbiology - Last 24 Hours (Table) 04/21/21 11:30 Blood Culture - Preliminary Blood No Growth after 24 hours 04/21/21 11:05 Blood Culture - Preliminary Blood No Growth after 24 hours Assessment and Plan Plan: Acute bilateral infiltrates most likely related to aspiration pneumonia Positive COVID-19 testing in the emergency room Underlying history of recurrent aspiration pneumonia maintained on TPN Underlying history of chronic kidney disease stage III Evidence of hyponatremia on presentation Elevated liver enzymes AST and ALT on presentation Underlying history of hypothyroidism Underlying history of degenerative osteoarthritis Previous episodes of pancreatitis Underlying history of chronic back pain with history of laminectomy History of partial bowel obstruction History of depression with anxiety disorder History of migraine headache History of severe protein calorie malnutrition At this time patient is admitted to medical floor Infectious disease consultation and pulmonary consultation were requested Patient was started on IV steroids, subcu Lovenox Prognosis is guarded will follow closely
[2021-04-23] MEDS: LORazepam 0.5 MG TAB PO SCH (20:11)
[2021-04-23] MEDS: MIRTAZAPINE 15 MG TAB PO SCH (20:11)
--- NOTE | 2021-04-24 00:04 | PN ---
PROGRESS NOTE DATE OF SERVICE: 04/23/2021 REASON FOR FOLLOWUP: COVID-19 pneumonia. INTERVAL HISTORY: The patient is afebrile. The patient is breathing slightly comfortably. The patient denies having any chest pain. She has been complaining of cough and bilateral lower extremity ( ). Not bringing up any sputum. No vomiting. No abdominal pain or diarrhea. PHYSICAL EXAMINATION: Blood pressure 132/68 with pulse of 85, temperature is 97.8. She is 100% on 3 L nasal cannula. General description is an elderly female up in the bed in no distress. Respiratory system: Unlabored breathing with bilateral diffuse rhonchi and wheeze. Heart S1-S2 regular. Abdomen soft, no tenderness. LABS: Hemoglobin 7.8, white count 5.91, creatinine is 1.47. DIAGNOSTIC IMPRESSION AND PLAN: Patient admitted to hospital with acute COVID-19 pneumonia in this patient currently covered with dexamethasone, Lovenox, zinc and ascorbic acid, to continue along with respiratory support. No evidence of any secondary bacterial pneumonia. Has no need for systemic antibiotics. Continue supportive care. MMODL / IJN: [id number] /
[2021-04-24] MEDS: BUTALB/APAP/CAFF 50-325-40MG TAB PO PRN (01:29)
[2021-04-24] MEDS: SODIUM CHLORIDE 0.9% 1,000 ML IV SCH ×2 (03:25→18:00)
[2021-04-24] MEDS: LEVOTHYROXINE 88 MCG TAB PO SCH (05:47)
[2021-04-24 07:43] LABS: Potassium 4.3 mmol/L (3.5-5.1)
[2021-04-24 07:44] LABS: ALT 52 U/L (4-34); AST 63 U/L (14-36); African American GFR (CKD) 38 (>60 ml/min/1.73 sqM); Albumin 2.9 g/dL (3.5-5.0); Albumin/Globulin Ratio 0.8; Alkaline Phosphatase 254 U/L (38-126); Anion Gap 9 mmol/L; Blood Urea Nitrogen 31 mg/dL (7-17); Calcium 7.8 mg/dL (8.4-10.2); Carbon Dioxide 19 mmol/L (22-30); Chloride 109 mmol/L (98-107); Globulin 3.5 g/dL; Glucose 94 mg/dL (74-99); Magnesium 2.4 mg/dL (1.6-2.3); Non-African American GFR(CKD) 33 (>60 ml/min/1.73 sqM); Phosphorus 3.3 mg/dL (2.5-4.5); Sodium 137 mmol/L (137-145); Total Bilirubin 0.4 mg/dL (0.2-1.3); Total Protein 6.4 g/dL (6.3-8.2)
[2021-04-24] MEDS: HYDROcodone/APAP 10-325MG 1 EACH TAB PO PRN ×3 (08:24→21:46)
[2021-04-24] MEDS: dexAMETHasone 2 MG TAB PO SCH (08:25)
[2021-04-24] MEDS: ASPIRIN 81 MG PO SCH (08:25)
[2021-04-24] MEDS: ENOXAPARIN 30 MG/0.3 ML SYRINGE SQ SCH (08:25)
[2021-04-24] MEDS: PANTOPRAZOLE 40 MG TABLET PO SCH ×2 (08:25→20:29)
[2021-04-24] MEDS: buPROPion XL 300 MG TAB.ER.24H PO SCH (08:26)
[2021-04-24] MEDS: busPIRone HCl 10 MG TAB PO SCH ×2 (08:26→20:07)
[2021-04-24] MEDS: hydrOXYzine pamoate 25 MG CAP PO SCH ×3 (08:27→21:45)
[2021-04-24] MEDS: buPROPion XL 150 MG TAB.ER.24H PO SCH (08:55)
[2021-04-24] MEDS: SYMBICORT 160-4.5 MCG INHALER INHALATION SCH ×2 (09:12→20:34)
[2021-04-24] MEDS: BUTALB/APAP/CAFF 50-325-40MG TAB PO SCH ×3 (11:22→23:48)
[2021-04-24] MEDS: FLUTICASONE 50MCG/SPRAY NASAL 16GM EA NOSTRIL SCH ×2 (11:26→20:08)
[2021-04-24] MEDS: ALBUTEROL HFA INHALER INHALATION PRN ×2 (12:33→20:34)
--- NOTE | 2021-04-24 13:25 | P.PN ---
Subjective Progress Note Date: 04/24/21 76-year-old female, well-known to us, with a history of multiple episodes of aspiration pneumonia. The patient came into the emergency department, on April 21, complaining of shortness of breath, cough, headache, chest pain. She feels like someone is sitting on her chest. The patient was just recently in the hospital. The patient has now tested positive for coronavirus infection. Her chest x-ray shows diffuse bilateral infiltrates, which could be consistent with coronavirus associated pneumonia. The patient's currently on 2 L nasal cannula. She did not appear to be in any significant respiratory distress. She is not receiving any IV fluids. She did receive monoclonal antibodies on y 2. Dopplers of her bilateral lower extremities were negative for DVT. White count was 5.91, hemoglobin 7.6, hematocrit 26.3, and platelet count 368,000. D- dimer was 1.55. Sodium 136, potassium 5, chlorides 100, CO2 23, anion gap 13, BUN 27.9, and creatinine 1.4. The patient's troponins were negative 3. Progress note dated 04/23/2021. The patient's resting comfortably in room 631. She is on 3 L nasal cannula. She's getting saline at 75 mL an hour. She is feeling much better. She was admitted with a diagnosis of acute hypoxemic respiratory failure secondary to coronavirus associated pneumonia. Her pro-calcitonin level is 0.22. The patient is receiving appropriate medications. I discussed that with him today. She did receive monoclonal antibodies on April 21. Labs today include a sodium 137, potassium 5, chlorides 106, anion gap 13, CO2 18, BUN 24, creatinine 1.47. AST was 122 with an ALT of 73. The patient is seen today 04/24/2021 in follow-up on the regular medical floor. She is currently resting quite comfortably in bed. Awake and alert in no acute distress. Maintaining O2 saturations in the 90s on 2 L/m per nasal cannula. She's been afebrile. Hemodynamically stable. Blood cultures reveal no growth today. Sodium 137. Potassium 4.3. Bicarb 19. BUN 31. Creatinine 1.55. AST 63. ALT 52. She is continued on Decadron, Lovenox. He is continued on Symbicort, albuterol. Being nourished with her TPN and lipids. Objective - Vital Signs Vital signs: Vital Signs Temp 97.4 F L 04/24/21 08:00 Pulse 78 04/24/21 08:00 Resp 18 04/24/21 08:00 BP 131/65 04/24/21 08:00 Pulse Ox 100 04/24/21 08:00 Intake & Output 04/23/21 04/24/21 04/24/21 18:59 06:59 18:59 Intake Total 440 Balance 440 Weight 41.73 kg Intake: Oral 440 Other: Voiding Method Toilet Toilet # Voids 1 2 - Exam Very pleasant cachectic and frail appearing 76-year-old female patient. No acute distress, oriented 3. The patient is currently on 2 L nasal cannula. Saturations are 93%. HEENT examination is grossly unremarkable. Mucous membranes are dry. Neck supple. Full range of motion. No adenopathy thyromegaly or neck vein distention. Cardiovascular examination reveals regular rhythm rate. S1-S2 normal. No S3 or S4. No discernible murmur noted. Heart sounds are distant. Heart rate 84 bpm. Lungs reveal bilateral diffuse rhonchi. Scattered wheezes are noted. Scattered crackles are appreciated. Breath sounds equal bilaterally. Abdomen soft, without bowel sounds. No masses. No tenderness. Extremities are intact. No cyanosis clubbing or edema. Skin is without rash or lesion. Neurologic examination is brief but nonfocal. - Labs CBC & Chem 7: 04/22/21 06:41 04/24/21 07:09 Labs: Abnormal Lab Results - Last 24 Hours (Table) 04/24/21 Range/Units 07:09 Chloride 109 H (98-107) mmol/L Carbon Dioxide 19 L (22-30) mmol/L BUN 31 H (7-17) mg/dL Creatinine 1.55 H (0.52-1.04) mg/dL Calcium 7.8 L (8.4-10.2) mg/dL Magnesium 2.4 H (1.6-2.3) mg/dL AST 63 H (14-36) U/L ALT 52 H (4-34) U/L Alkaline Phosphatase 254 H (38-126) U/L Albumin 2.9 L (3.5-5.0) g/dL Microbiology - Last 24 Hours (Table) 04/21/21 11:30 Blood Culture - Preliminary Blood No Growth after 48 hours 04/21/21 11:05 Blood Culture - Preliminary Blood No Growth after 48 hours Assessment and Plan Assessment: 1 Acute shortness of breath, likely related to coronavirus associated pneumonia. 2 History of COPD with multiple COPD exacerbations. 3 History of chronic aspiration pneumonia. 4 Gastroesophageal reflux disease. 5 History of hypothyroidism. 6 History of migraine cephalgia. 7 History of pancreatitis. 8 History of chronic kidney disease. 9 History of anorexia/cachexia syndrome. Plan: The patient was seen and evaluated today Currently stable and on 2 L nasal cannula Continued on Decadron, Lovenox Continue nutrition via TPN and lipids Continue with her Symbicort and albuterol Titrate down the FiO2 as tolerated Repeat chest x-ray and inflammatory markers in the a.m. We will continue to follow I, the cosigning physician, performed a history & physical examination of the patient. Lungs sounds with bilateral scattered rhonchi. Maintaining good O2 saturations in the 90s on 2 L/m nasal. I discussed the assessment and plan of care with my nurse practitioner, Leyla Grace. I attest to the above note as dictated by her.
[2021-04-24] MEDS ORDERED: 1: MVI, ADULT NO.4 WITH VIT K 10 ML, TRACE (CONC-1ML/DOSE) 1 ML in AMINO ACID 5%-D20W+LY IV SCH ×3 (15:00)
--- NOTE | 2021-04-24 17:56 | P.PN ---
Subjective Progress Note Date: 04/23/21 Louise Sutton is a 76-year-old female patient of Dr. Eli who was admitted to [facility] on 04/21/2021 history and physical was done by Dr. Macedo who was covering for me. I am taking care over the care of this patient on 04/22/2021 Patient has a known history of multiple admissions for aspiration pneumonia she is currently maintained on TPN She presented with symptoms of cough and shortness of breath however testing at this time in the emergency room was positive for COVID-19 she was admitted to medical floor pulmonary consultation was requested On 04/22/2021 patient was seen and examined on the medical floor she is complaining of cough , and complaining of pain in her hips when she coughs otherwise she denies any complaints, there is no fever or chills no headache or dizziness no chest pain no shortness of breath no nausea or vomiting no abdominal pain no diarrhea and no urinary symptoms On 04/23/2021 patient was seen and examined on the medical floor she is complaining of cough complaining of migraine headache and back pain otherwise she denies any complaints there is no fever or chills no headache or dizziness no chest pain no shortness of breath no nausea or vomiting no abdominal pain no diarrhea no blood in the stools no burning with urination no frequency or u rgency and no hematuria Objective - Vital Signs Vital signs: Vital Signs Temp 97.9 F 04/23/21 14:00 Pulse 89 04/23/21 14:00 Resp 16 04/23/21 14:00 BP 116/65 04/23/21 14:00 Pulse Ox 96 04/23/21 15:21 Intake & Output 04/23/21 04/23/21 04/24/21 06:59 18:59 06:59 Intake Total 440 Balance 440 Weight 41.73 kg Intake: Oral 440 Other: Voiding Method Toilet # Voids 2 1 - Exam In general patient is alert and oriented x 3 in no distress HEENT head normocephalic and atraumatic Neck is supple no JVD no goiter no lymphadenopathy no carotid bruit Chest examination reveals a scattered crackles bilaterally no wheezing Cardiac exam reveals regular heart sounds S1 and S2 no gallops no murmurs Abdomen is soft nontender no organomegaly with normal bowel sounds Extremity exam reveals no edema no cyanosis or clubbing Neurological examination reveals no gross focal deficits - Labs CBC & Chem 7: 04/22/21 06:41 04/24/21 07:09 Labs: Abnormal Lab Results - Last 24 Hours (Table) 04/23/21 Range/Units 11:12 Carbon Dioxide 18 L (22-30) mmol/L BUN 24 H (7-17) mg/dL Creatinine 1.47 H (0.52-1.04) mg/dL Glucose 127 H (74-99) mg/dL Calcium 8.3 L (8.4-10.2) mg/dL Magnesium 2.4 H (1.6-2.3) mg/dL AST 122 H (14-36) U/L ALT 73 H (4-34) U/L Alkaline Phosphatase 349 H (38-126) U/L Microbiology - Last 24 Hours (Table) 04/21/21 11:30 Blood Culture - Preliminary Blood No Growth after 48 hours 04/21/21 11:05 Blood Culture - Preliminary Blood No Growth after 48 hours Assessment and Plan Plan: Acute bilateral infiltrates most likely related to aspiration pneumonia Positive COVID-19 testing in the emergency room Underlying history of recurrent aspiration pneumonia maintained on TPN Underlying history of chronic kidney disease stage III Evidence of hyponatremia on presentation Elevated liver enzymes AST and ALT on presentation Underlying history of hypothyroidism Underlying history of degenerative osteoarthritis Previous episodes of pancreatitis Underlying history of chronic back pain with history of laminectomy History of partial bowel obstruction History of depression with anxiety disorder History of migraine headache History of severe protein calorie malnutrition At this time patient is admitted to medical floor Infectious disease consultation and pulmonary consultation were requested Patient was started on IV steroids, subcu Lovenox Prognosis is guarded will follow closely
--- NOTE | 2021-04-24 17:57 | P.PN ---
Subjective Progress Note Date: 04/24/21 Louise Sutton is a 76-year-old female patient of Dr. Eli who was admitted to [facility] on 04/21/2021 history and physical was done by Dr. Macedo who was covering for me. I am taking care over the care of this patient on 04/22/2021 Patient has a known history of multiple admissions for aspiration pneumonia she is currently maintained on TPN She presented with symptoms of cough and shortness of breath however testing at this time in the emergency room was positive for COVID-19 she was admitted to medical floor pulmonary consultation was requested On 04/22/2021 patient was seen and examined on the medical floor she is complaining of cough , and complaining of pain in her hips when she coughs otherwise she denies any complaints, there is no fever or chills no headache or dizziness no chest pain no shortness of breath no nausea or vomiting no abdominal pain no diarrhea and no urinary symptoms On 04/23/2021 patient was seen and examined on the medical floor she is complaining of cough complaining of migraine headache and back pain otherwise she denies any complaints there is no fever or chills no headache or dizziness no chest pain no shortness of breath no nausea or vomiting no abdominal pain no diarrhea no blood in the stools no burning with urination no frequency or u rgency and no hematuria On 04/24/2021 patient was seen and examined on the medical floor she is alert and oriented 3 in no apparent distress she is still complaining of cough and complaining of generalized pain otherwise she denies any complaints, she is maintained on TPN, she would need to return home on her previous regimen of TPN as prior to admission. Objective - Vital Signs Vital signs: Vital Signs Temp 97.9 F 04/24/21 14:00 Pulse 87 04/24/21 14:00 Resp 18 04/24/21 14:00 BP 123/57 04/24/21 14:00 Pulse Ox 99 04/24/21 14:00 Intake & Output 04/23/21 04/24/21 04/24/21 18:59 06:59 18:59 Intake Total 440 Balance 440 Weight 41.73 kg Intake: Oral 440 Other: Voiding Method Toilet Toilet # Voids 1 2 2 # Bowel Movements 1 - Exam In general patient is alert and oriented x 3 in no distress HEENT head normocephalic and atraumatic Neck is supple no JVD no goiter no lymphadenopathy no carotid bruit Chest examination reveals a scattered crackles bilaterally no wheezing Cardiac exam reveals regular heart sounds S1 and S2 no gallops no murmurs Abdomen is soft nontender no organomegaly with normal bowel sounds Extremity exam reveals no edema no cyanosis or clubbing Neurological examination reveals no gross focal deficits - Labs CBC & Chem 7: 04/22/21 06:41 04/24/21 07:09 Labs: Abnormal Lab Results - Last 24 Hours (Table) 04/24/21 Range/Units 07:09 Chloride 109 H (98-107) mmol/L Carbon Dioxide 19 L (22-30) mmol/L BUN 31 H (7-17) mg/dL Creatinine 1.55 H (0.52-1.04) mg/dL Calcium 7.8 L (8.4-10.2) mg/dL Magnesium 2.4 H (1.6-2.3) mg/dL AST 63 H (14-36) U/L ALT 52 H (4-34) U/L Alkaline Phosphatase 254 H (38-126) U/L Albumin 2.9 L (3.5-5.0) g/dL Microbiology - Last 24 Hours (Table) 04/21/21 11:30 Blood Culture - Preliminary Blood No Growth after 72 hours 04/21/21 11:05 Blood Culture - Preliminary Blood No Growth after 72 hours Assessment and Plan Plan: Acute bilateral infiltrates most likely related to aspiration pneumonia Positive COVID-19 testing in the emergency room Underlying history of recurrent aspiration pneumonia maintained on TPN Underlying history of chronic kidney disease stage III Evidence of hyponatremia on presentation Elevated liver enzymes AST and ALT on presentation Underlying history of hypothyroidism Underlying history of degenerative osteoarthritis Previous episodes of pancreatitis Underlying history of chronic back pain with history of laminectomy History of partial bowel obstruction History of depression with anxiety disorder History of migraine headache History of severe protein calorie malnutrition At this time patient is admitted to medical floor Infectious disease consultation and pulmonary consultation were requested Patient was started on IV steroids, subcu Lovenox Prognosis is guarded will follow closely
[2021-04-24] MEDS: LORazepam 0.5 MG TAB PO SCH (20:07)
[2021-04-24] MEDS: MIRTAZAPINE 15 MG TAB PO SCH (20:07)
--- NOTE | 2021-04-24 23:52 | PN ---
PROGRESS NOTE DATE OF SERVICE: 04/24/2021 REASON FOR FOLLOWUP: Covid 19 infection. INTERVAL HISTORY: Patient is afebrile. The patient is breathing comfortably. She is still complaining of bilateral lower ribcage, chest pain from coughing and is bringing up some greenish sputum. Denies having any nausea, no vomiting. No abdominal pain or diarrhea. PHYSICAL EXAMINATION: Blood pressure 131/65, pulse of 78, temperature 97.4. She is 100% on 3 L nasal cannula. General description is an elderly female up in the bed in no distress. Respiratory system: Unlabored breathing. Bilateral rhonchi. Heart S1, S2. Regular rate and rhythm. Abdomen soft, no tenderness. LABS: Creatinine is 1.55. Blood culture has been negative. DIAGNOSTIC IMPRESSION AND PLAN: This patient admitted to the hospital with MRSA Covid 19 infection in this patient seemed to have shown overall clinical improvement. Current supportive treatment of dexamethasone, Lovenox, zinc and ascorbic acid to continue along with respiratory support and monitor clinical course closely. No evidence of any secondary bacterial pneumonia and no need for systemic antibiotic therapy. MMODL / IJN: [id number] /
[2021-04-25] MEDS: SODIUM CHLORIDE 0.9% 1,000 ML IV SCH ×2 (04:31→17:17)
[2021-04-25] MEDS: BUTALB/APAP/CAFF 50-325-40MG TAB PO SCH ×3 (05:13→20:21)
[2021-04-25] MEDS: LEVOTHYROXINE 88 MCG TAB PO SCH (05:42)
[2021-04-25 06:55] LABS: ALT 42 U/L (4-34); AST 45 U/L (14-36); African American GFR (CKD) 40 (>60 ml/min/1.73 sqM); Albumin 2.8 g/dL (3.5-5.0); Albumin/Globulin Ratio 0.9; Alkaline Phosphatase 230 U/L (38-126); Anion Gap 9 mmol/L; Blood Urea Nitrogen 34 mg/dL (7-17); Calcium 8.2 mg/dL (8.4-10.2); Carbon Dioxide 19 mmol/L (22-30); Chloride 109 mmol/L (98-107); Globulin 3.2 g/dL; Glucose 111 mg/dL (74-99); LDH 389 U/L (313-618); Magnesium 2.3 mg/dL (1.6-2.3); Non-African American GFR(CKD) 35 (>60 ml/min/1.73 sqM); Phosphorus 3.5 mg/dL (2.5-4.5); Potassium 4.2 mmol/L (3.5-5.1); Sodium 137 mmol/L (137-145); Total Bilirubin 0.3 mg/dL (0.2-1.3)
[2021-04-25] MEDS: SYMBICORT 160-4.5 MCG INHALER INHALATION SCH ×2 (07:32→19:13)
[2021-04-25] MEDS: HYDROcodone/APAP 10-325MG 1 EACH TAB PO PRN ×2 (08:04→15:22)
[2021-04-25] MEDS: dexAMETHasone 2 MG TAB PO SCH (08:06)
[2021-04-25] MEDS: ASPIRIN 81 MG PO SCH (08:06)
[2021-04-25] MEDS: ENOXAPARIN 30 MG/0.3 ML SYRINGE SQ SCH (08:06)
[2021-04-25 08:07] LABS: C Reactive Protein 1.1 mg/dL (<1.0)
[2021-04-25] MEDS: hydrOXYzine pamoate 25 MG CAP PO SCH ×3 (08:07→22:34)
[2021-04-25] MEDS: busPIRone HCl 10 MG TAB PO SCH ×2 (08:07→20:22)
[2021-04-25] MEDS: buPROPion XL 150 MG TAB.ER.24H PO SCH (08:07)
[2021-04-25] MEDS: PANTOPRAZOLE 40 MG TABLET PO SCH ×2 (08:07→20:21)
[2021-04-25] MEDS: FLUTICASONE 50MCG/SPRAY NASAL 16GM EA NOSTRIL SCH ×2 (08:10→20:22)
--- NOTE | 2021-04-25 09:13 | XR ---
EXAMINATION TYPE: XR chest 1V portable DATE OF EXAM: 04/25/2021 COMPARISON: Chest x-ray 04/21/2021, chest CT 04/08/2021 HISTORY: Covid pneumonia TECHNIQUE: Single frontal view of the chest is obtained. FINDINGS: Pleural-parenchymal changes are similar to prior CT. Left-sided PICC line is in place, dis velma tip overlying superior vena cava. There is no evident pneumothorax, there may be small left pleur al effusion. Cardiac mediastinal silhouette shows a similar appearance. IMPRESSION: Correlate for pneumonia, follow-up to resolution to exclude tumor
[2021-04-25] MEDS: buPROPion XL 300 MG TAB.ER.24H PO SCH (10:44)
--- NOTE | 2021-04-25 12:19 | P.PN ---
Subjective Progress Note Date: 04/25/21 76-year-old female, well-known to us, with a history of multiple episodes of aspiration pneumonia. The patient came into the emergency department, on April 21, complaining of shortness of breath, cough, headache, chest pain. She feels like someone is sitting on her chest. The patient was just recently in the hospital. The patient has now tested positive for coronavirus infection. Her chest x-ray shows diffuse bilateral infiltrates, which could be consistent with coronavirus associated pneumonia. The patient's currently on 2 L nasal cannula. She did not appear to be in any significant respiratory distress. She is not receiving any IV fluids. She did receive monoclonal antibodies on y 2. Dopplers of her bilateral lower extremities were negative for DVT. White count was 5.91, hemoglobin 7.6, hematocrit 26.3, and platelet count 368,000. D- dimer was 1.55. Sodium 136, potassium 5, chlorides 100, CO2 23, anion gap 13, BUN 27.9, and creatinine 1.4. The patient's troponins were negative 3. Progress note dated 04/23/2021. The patient's resting comfortably in room 631. She is on 3 L nasal cannula. She's getting saline at 75 mL an hour. She is feeling much better. She was admitted with a diagnosis of acute hypoxemic respiratory failure secondary to coronavirus associated pneumonia. Her pro-calcitonin level is 0.22. The patient is receiving appropriate medications. I discussed that with him today. She did receive monoclonal antibodies on April 21. Labs today include a sodium 137, potassium 5, chlorides 106, anion gap 13, CO2 18, BUN 24, creatinine 1.47. AST was 122 with an ALT of 73. The patient is seen today 04/24/2021 in follow-up on the regular medical floor. She is currently resting quite comfortably in bed. Awake and alert in no acute distress. Maintaining O2 saturations in the 90s on 2 L/m per nasal cannula. She's been afebrile. Hemodynamically stable. Blood cultures reveal no growth today. Sodium 137. Potassium 4.3. Bicarb 19. BUN 31. Creatinine 1.55. AST 63. ALT 52. She is continued on Decadron, Lovenox. He is continued on Symbicort, albuterol. Being nourished with her TPN and lipids. The patient is seen today 04/25/2021 in follow-up on the regular medical floor. She is awake and alert in no acute distress. She is feeling back to her baseline. No worsening shortness of breath, cough or congestion. No fever chil ls. Chest x-ray showing stable right upper lobe and left midlung infiltrates. No antibiotics required per ID services. She is having a headache. She is waiting for Fioricet that usually helps. She is continued on Symbicort, albuterol, Decadron. Lovenox for DVT prophylaxis. She has been nourished with TPN and lipids as scheduled. Objective - Vital Signs Vital signs: Vital Signs Temp 97.5 F L 04/25/21 07:40 Pulse 80 04/25/21 07:40 Resp 18 04/25/21 08:00 BP 124/68 04/25/21 07:40 Pulse Ox 100 04/25/21 07:40 Intake & Output 04/24/21 04/25/21 04/25/21 18:59 06:59 18:59 Intake Total 200 Balance 200 Intake: Oral 200 Other: Voiding Method Bedside Commode # Voids 2 2 # Bowel Movements 1 - Exam Very pleasant cachectic and frail appearing 76-year-old female patient. No acute distress, oriented 3. The patient is currently on 2 L nasal cannula. Saturations are 100%. HEENT examination is grossly unremarkable. Mucous membranes are dry. Neck supple. Full range of motion. No adenopathy thyromegaly or neck vein distention. Cardiovascular examination reveals regular rhythm rate. S1-S2 normal. No S3 or S4. No discernible murmur noted. Heart sounds are distant. Heart rate 80 bpm. Lungs reveal bilateral scattered rhonchi. Abdomen soft, without bowel sounds. No masses. No tenderness. Extremities are intact. No cyanosis clubbing or edema. Skin is without rash or lesion. Neurologic examination is brief but nonfocal. - Labs CBC & Chem 7: 04/22/21 06:41 04/25/21 06:00 Labs: Abnormal Lab Results - Last 24 Hours (Table) 04/25/21 04/25/21 Range/Units 06:00 06:00 D-Dimer 1.66 H (<0.60) mg/L FEU Chloride 109 H (98-107) mmol/L Carbon Dioxide 19 L (22-30) mmol/L BUN 34 H (7-17) mg/dL Creatinine 1.47 H (0.52-1.04) mg/dL Glucose 111 H (74-99) mg/dL Calcium 8.2 L (8.4-10.2) mg/dL AST 45 H (14-36) U/L ALT 42 H (4-34) U/L Alkaline Phosphatase 230 H (38-126) U/L C-Reactive Protein 1.1 H (<1.0) mg/dL Total Protein 6.0 L (6.3-8.2) g/dL Albumin 2.8 L (3.5-5.0) g/dL Microbiology - Last 24 Hours (Table) 04/21/21 11:30 Blood Culture - Preliminary Blood No Growth after 72 hours 04/21/21 11:05 Blood Culture - Preliminary Blood No Growth after 72 hours Assessment and Plan Assessment: 1 Acute shortness of breath, likely related to coronavirus associated pneumonia. Chest x-ray continues to revealed stable right upper lobe and left midlung infiltrates. Currently not on antibiotics. ID service is on the case. 2 History of COPD with multiple COPD exacerbations. 3 History of chronic aspiration pneumonia. 4 Gastroesophageal reflux disease. 5 History of hypothyroidism. 6 History of migraine cephalgia. 7 History of pancreatitis. 8 History of chronic kidney disease. 9 History of anorexia/cachexia syndrome. Plan: The patient was seen and evaluated today Cleared for discharge from the pulmonary standpoint 100% O2 saturation on 2 L Titrate off the FiO2 as tolerated No antibiotics necessary per ID services Complete a 10 day course of Decadron Continue her home pulmonary medications Follow-up in the office in 3-4 weeks I, the cosigning physician, performed a history & physical examination of the patient. Lungs sounds with bilateral scattered rhonchi. Maintaining good O2 saturations up to 100% on 2 L/m nasal. I discussed the assessment and plan of care with my nurse practitioner, Leyla Grace. I attest to the above note as dictated by her.
[2021-04-25] MEDS: 1: MVI, ADULT NO.4 WITH VIT K 10 ML, TRACE (CONC-1ML/DOSE) 1 ML in AMINO ACID 5%-D20W+LY IV SCH ×3 (17:05)
[2021-04-25] MEDS ORDERED: HYDROmorphone 0.5 MG/0.5 ML SYRINGE IVP STA (17:24)
--- NOTE | 2021-04-25 17:41 | P.PN ---
Subjective Progress Note Date: 04/25/21 Louise Sutton is a 76-year-old female patient of Dr. Eli who was admitted to [facility] on 04/21/2021 history and physical was done by Dr. Macedo who was covering for me. I am taking care over the care of this patient on 04/22/2021 Patient has a known history of multiple admissions for aspiration pneumonia she is currently maintained on TPN She presented with symptoms of cough and shortness of breath however testing at this time in the emergency room was positive for COVID-19 she was admitted to medical floor pulmonary consultation was requested On 04/22/2021 patient was seen and examined on the medical floor she is complaining of cough , and complaining of pain in her hips when she coughs otherwise she denies any complaints, there is no fever or chills no headache or dizziness no chest pain no shortness of breath no nausea or vomiting no abdominal pain no diarrhea and no urinary symptoms On 04/23/2021 patient was seen and examined on the medical floor she is complaining of cough complaining of migraine headache and back pain otherwise she denies any complaints there is no fever or chills no headache or dizziness no chest pain no shortness of breath no nausea or vomiting no abdominal pain no diarrhea no blood in the stools no burning with urination no frequency or u rgency and no hematuria On 04/24/2021 patient was seen and examined on the medical floor she is alert and oriented 3 in no apparent distress she is still complaining of cough and complaining of generalized pain otherwise she denies any complaints, she is maintained on TPN, she would need to return home on her previous regimen of TPN as prior to admission. On 10/08/2019 patient was seen and examined on the medical floor she is alert and oriented 3 in no apparent distress, she is complaining of cough, and complaining of pain in the ribs area while she coughs she is maintained on [place] 10 mg 1 every 6 hours when necessary she is also receiving Fioricet frequently for headache she is requesting Dilaudid constantly, she is also maintained on fentanyl patch , she was counseled in length, in regard to dependence on pain medications, she will be given 1 dose of Tylenol did 0.5 mg IV at this time Objective - Vital Signs Vital signs: Vital Signs Temp 98 F 04/25/21 14:46 Pulse 91 04/25/21 14:46 Resp 18 04/25/21 14:46 BP 136/75 04/25/21 14:46 Pulse Ox 100 04/25/21 14:46 Intake & Output 04/24/21 04/25/21 04/25/21 18:59 06:59 18:59 Intake Total 318 Balance 318 Intake: Oral 318 Other: Voiding Method Bedside Commode # Voids 2 2 1 # Bowel Movements 1 1 - Exam In general patient is alert and oriented x 3 in no distress HEENT head normocephalic and atraumatic Neck is supple no JVD no goiter no lymphadenopathy no carotid bruit Chest examination reveals a scattered crackles bilaterally no wheezing Cardiac exam reveals regular heart sounds S1 and S2 no gallops no murmurs Abdomen is soft nontender no organomegaly with normal bowel sounds Extremity exam reveals no edema no cyanosis or clubbing Neurological examination reveals no gross focal deficits - Labs CBC & Chem 7: 04/22/21 06:41 04/25/21 06:00 Labs: Abnormal Lab Results - Last 24 Hours (Table) 04/25/21 04/25/21 Range/Units 06:00 06:00 D-Dimer 1.66 H (<0.60) mg/L FEU Chloride 109 H (98-107) mmol/L Carbon Dioxide 19 L (22-30) mmol/L BUN 34 H (7-17) mg/dL Creatinine 1.47 H (0.52-1.04) mg/dL Glucose 111 H (74-99) mg/dL Calcium 8.2 L (8.4-10.2) mg/dL AST 45 H (14-36) U/L ALT 42 H (4-34) U/L Alkaline Phosphatase 230 H (38-126) U/L C-Reactive Protein 1.1 H (<1.0) mg/dL Total Protein 6.0 L (6.3-8.2) g/dL Albumin 2.8 L (3.5-5.0) g/dL Microbiology - Last 24 Hours (Table) 04/21/21 11:30 Blood Culture - Preliminary Blood No Growth after 96 hours 04/21/21 11:05 Blood Culture - Preliminary Blood No Growth after 96 hours Assessment and Plan Plan: Acute bilateral infiltrates most likely related to aspiration pneumonia Positive COVID-19 testing in the emergency room Underlying history of recurrent aspiration pneumonia maintained on TPN Underlying history of chronic kidney disease stage III Evidence of hyponatremia on presentation Elevated liver enzymes AST and ALT on presentation Underlying history of hypothyroidism Underlying history of degenerative osteoarthritis Previous episodes of pancreatitis Underlying history of chronic back pain with history of laminectomy History of partial bowel obstruction History of depression with anxiety disorder History of migraine headache History of severe protein calorie malnutrition At this time patient is admitted to medical floor Infectious disease consultation and pulmonary consultation were requested Patient was started on IV steroids, subcu Lovenox Prognosis is guarded will follow closely
[2021-04-25] MEDS: ALBUTEROL HFA INHALER INHALATION PRN (19:13)
[2021-04-25] MEDS: LORazepam 0.5 MG TAB PO SCH (20:21)
[2021-04-25] MEDS: MIRTAZAPINE 15 MG TAB PO SCH (20:22)
--- NOTE | 2021-04-26 00:21 | PN ---
PROGRESS NOTE DATE OF SERVICE: 04/25/2021 REASON FOR FOLLOWUP: COVID-19 pneumonia. INTERVAL HISTORY: Patient is afebrile. The patient is breathing comfortably. The patient still complaining of bilateral lower ribcage chest pain from coughing and mentions she is covering up stuff. However, not able to provide any sputum sample. No nausea, no vomiting. No abdominal pain. No diarrhea. PHYSICAL EXAMINATION: Blood pressure is 124/68 with a pulse of 80, temperature 97.5. She is 100% on 2 L nasal cannula. General description is an elderly female up in the bed in no distress. Respiratory system: Unlabored breathing. Bilateral scattered rhonchi. Heart S1-S2 regular rate. Abdomen soft, no tenderness. LABS: D. dimer 1.66, creatinine is 1.47. Liver enzymes are mildly elevated. DIAGNOSTIC IMPRESSION/PLAN: Patient with acute COVID-19 pneumonia in this patient with no worsening on the chest x- ray, seemed to be clinically responding to current supportive treatment off Dexamethasone, Lovenox, zinc and ascorbic acid to continue along with respiratory support and monitor clinical course closely. MMODL / IJN: [id number] /
[2021-04-26] MEDS: BUTALB/APAP/CAFF 50-325-40MG TAB PO SCH (01:51)
[2021-04-26] MEDS: HYDROcodone/APAP 10-325MG 1 EACH TAB PO PRN ×3 (04:55→18:13)
[2021-04-26] MEDS: LEVOTHYROXINE 88 MCG TAB PO SCH (06:10)
[2021-04-26] MEDS: SODIUM CHLORIDE 0.9% 1,000 ML IV SCH ×2 (06:10→15:23)
[2021-04-26] MEDS: SYMBICORT 160-4.5 MCG INHALER INHALATION SCH ×2 (07:25→19:17)
[2021-04-26 07:42] LABS: African American GFR (CKD) 41 (>60 ml/min/1.73 sqM); Anion Gap 6 mmol/L; Blood Urea Nitrogen 41 mg/dL (7-17); Calcium 8.3 mg/dL (8.4-10.2); Carbon Dioxide 19 mmol/L (22-30); Chloride 111 mmol/L (98-107); Glucose 103 mg/dL (74-99); Magnesium 2.2 mg/dL (1.6-2.3); Non-African American GFR(CKD) 35 (>60 ml/min/1.73 sqM); Phosphorus 3.8 mg/dL (2.5-4.5); Potassium 4.5 mmol/L (3.5-5.1); Sodium 136 mmol/L (137-145)
[2021-04-26] MEDS: hydrOXYzine pamoate 25 MG CAP PO SCH ×3 (08:56→21:10)
[2021-04-26] MEDS: ENOXAPARIN 30 MG/0.3 ML SYRINGE SQ SCH (08:56)
[2021-04-26] MEDS: dexAMETHasone 2 MG TAB PO SCH (08:56)
[2021-04-26] MEDS: buPROPion XL 300 MG TAB.ER.24H PO SCH (08:57)
[2021-04-26] MEDS: PANTOPRAZOLE 40 MG TABLET PO SCH ×2 (08:57→21:09)
[2021-04-26] MEDS: ASPIRIN 81 MG PO SCH (08:57)
[2021-04-26] MEDS: BUTALB/APAP/CAFF 50-325-40MG TAB PO PRN ×3 (08:57→22:27)
[2021-04-26] MEDS: FLUTICASONE 50MCG/SPRAY NASAL 16GM EA NOSTRIL SCH ×2 (08:58→21:11)
[2021-04-26] MEDS: buPROPion XL 150 MG TAB.ER.24H PO SCH (08:58)
[2021-04-26] MEDS: busPIRone HCl 10 MG TAB PO SCH ×2 (08:58→21:11)
--- NOTE | 2021-04-26 12:23 | P.PN ---
Subjective Progress Note Date: 04/26/21 76-year-old female, well-known to us, with a history of multiple episodes of aspiration pneumonia. The patient came into the emergency department, on April 21, complaining of shortness of breath, cough, headache, chest pain. She feels like someone is sitting on her chest. The patient was just recently in the hospital. The patient has now tested positive for coronavirus infection. Her chest x-ray shows diffuse bilateral infiltrates, which could be consistent with coronavirus associated pneumonia. The patient's currently on 2 L nasal cannula. She did not appear to be in any significant respiratory distress. She is not receiving any IV fluids. She did receive monoclonal antibodies on y 2. Dopplers of her bilateral lower extremities were negative for DVT. White count was 5.91, hemoglobin 7.6, hematocrit 26.3, and platelet count 368,000. D- dimer was 1.55. Sodium 136, potassium 5, chlorides 100, CO2 23, anion gap 13, BUN 27.9, and creatinine 1.4. The patient's troponins were negative 3. Progress note dated 04/23/2021. The patient's resting comfortably in room 631. She is on 3 L nasal cannula. She's getting saline at 75 mL an hour. She is feeling much better. She was admitted with a diagnosis of acute hypoxemic respiratory failure secondary to coronavirus associated pneumonia. Her pro-calcitonin level is 0.22. The patient is receiving appropriate medications. I discussed that with him today. She did receive monoclonal antibodies on April 21. Labs today include a sodium 137, potassium 5, chlorides 106, anion gap 13, CO2 18, BUN 24, creatinine 1.47. AST was 122 with an ALT of 73. The patient is seen today 04/24/2021 in follow-up on the regular medical floor. She is currently resting quite comfortably in bed. Awake and alert in no acute distress. Maintaining O2 saturations in the 90s on 2 L/m per nasal cannula. She's been afebrile. Hemodynamically stable. Blood cultures reveal no growth today. Sodium 137. Potassium 4.3. Bicarb 19. BUN 31. Creatinine 1.55. AST 63. ALT 52. She is continued on Decadron, Lovenox. He is continued on Symbicort, albuterol. Being nourished with her TPN and lipids. The patient is seen today 04/25/2021 in follow-up on the regular medical floor. She is awake and alert in no acute distress. She is feeling back to her baseline. No worsening shortness of breath, cough or congestion. No fever chil ls. Chest x-ray showing stable right upper lobe and left midlung infiltrates. No antibiotics required per ID services. She is having a headache. She is waiting for Fioricet that usually helps. She is continued on Symbicort, albuterol, Decadron. Lovenox for DVT prophylaxis. She has been nourished with TPN and lipids as scheduled. The patient is seen today 04/26/2021 in follow-up on the regular medical floor. She is resting comfortably in bed. Awake and alert in no acute distress. She is maintaining O2 saturations in the 90s on room air. She is continued on Decadron, Lovenox, vitamin supplements. She does have a lot of complaints of pain. She has a fentanyl patch on. She is asking for Dilaudid frequently. She's asking for [place]. She is being nourished with her TPN and lipids. Her weight is only 42 kg. D-dimer 1.66. Sodium 136. Potassium 4.5. Creatinine 1.46. Objective - Vital Signs Vital signs: Vital Signs Temp 97.7 F 04/26/21 07:39 Pulse 84 04/26/21 07:39 Resp 18 04/26/21 07:39 BP 150/66 04/26/21 07:39 Pulse Ox 100 04/26/21 07:39 Intake & Output 04/25/21 04/26/21 04/26/21 18:59 06:59 18:59 Intake Total 318 Balance 318 Weight 41.73 kg Intake: Oral 318 Other: Voiding Method Bedside Commode # Voids 1 2 # Bowel Movements 1 - Exam Very pleasant cachectic and frail appearing 76-year-old female patient. No acute distress, oriented 3. The patient is currently on room air. Saturations are 94%. HEENT examination is grossly unremarkable. Mucous membranes are dry. Neck supple. Full range of motion. No adenopathy thyromegaly or neck vein distention. Cardiovascular examination reveals regular rhythm rate. S1-S2 normal. No S3 or S4. No discernible murmur noted. Heart sounds are distant. Heart rate 84 bpm. Lungs reveal bilateral scattered rhonchi. Abdomen soft, without bowel sounds. No masses. No tenderness. Extremities are intact. No cyanosis clubbing or edema. Skin is without rash or lesion. Neurologic examination is brief but nonfocal. - Labs CBC & Chem 7: 04/22/21 06:41 04/26/21 07:08 Labs: Abnormal Lab Results - Last 24 Hours (Table) 04/26/21 Range/Units 07:08 Sodium 136 L (137-145) mmol/L Chloride 111 H (98-107) mmol/L Carbon Dioxide 19 L (22-30) mmol/L BUN 41 H (7-17) mg/dL Creatinine 1.46 H (0.52-1.04) mg/dL Glucose 103 H (74-99) mg/dL Calcium 8.3 L (8.4-10.2) mg/dL Microbiology - Last 24 Hours (Table) 04/21/21 11:30 Blood Culture - Preliminary Blood No Growth after 96 hours 04/21/21 11:05 Blood Culture - Preliminary Blood No Growth after 96 hours Assessment and Plan Assessment: 1 Acute shortness of breath, likely related to coronavirus associated pneumonia. Chest x-ray continues to revealed stable right upper lobe and left midlung infiltrates. Currently not on antibiotics. ID service is on the case. 2 History of COPD with multiple COPD exacerbations. 3 History of chronic aspiration pneumonia. 4 Gastroesophageal reflux disease. 5 History of hypothyroidism. 6 History of migraine cephalgia. 7 History of pancreatitis. 8 History of chronic kidney disease. 9 History of anorexia/cachexia syndrome. Plan: The patient was seen and evaluated today Cleared for discharge from the pulmonary standpoint On room air No antibiotics necessary per ID services Complete a 10 day course of Decadron Continue her home pulmonary medications Follow-up in the office in 3-4 weeks I, the cosigning physician, performed a history & physical examination of the patient. Lungs sounds with bilateral scattered rhonchi. Maintaining good O2 saturations in the 90s on room. I discussed the assessment and plan of care with my nurse practitioner, Leyla Grace. I attest to the above note as dictated by her.
[2021-04-26 13:19] LABS: Anisocytosis Slight; Basophils % (A) 0 %; Eosinophils # (A) 0.1 k/uL (0-0.7); Eosinophils % (A) 2 %; HGB 7.8 gm/dL (11.4-16.0); Hypochromasia Marked; Lymphocytes # (A) 1.8 k/uL (1.0-4.8); Lymphocytes % (A) 20 %; MCH 26.3 pg (25.0-35.0); MCHC 29.1 g/dL (31.0-37.0); Mean Platelet Volume 7.9; Monocytes # (A) 0.5 k/uL (0-1.0); Monocytes % (A) 6 %; Neutrophils # (A) 6.3 k/uL (1.3-7.7); Neutrophils % (A) 69 %; Platelet Count 460 k/uL (150-450); RBC 2.98 m/uL (3.80-5.40); RDW 18.5 % (11.5-15.5)
[2021-04-26 13:22] LABS: MCV 90.5 fL (80.0-100.0)
[2021-04-26] MEDS ORDERED: SODIUM FERRIC GLUCONAT-SUCROSE 125 MG in SODIUM CHLORIDE 0.9% 100 ML IVPB ONE (13:30)
--- NOTE | 2021-04-26 13:30 | P.PN ---
Subjective Progress Note Date: 04/26/21 Louise Sutton is a 76-year-old female patient of Dr. Eli who was admitted to [facility] on 04/21/2021 history and physical was done by Dr. Macedo who was covering for me. I am taking care over the care of this patient on 04/22/2021 Patient has a known history of multiple admissions for aspiration pneumonia she is currently maintained on TPN She presented with symptoms of cough and shortness of breath however testing at this time in the emergency room was positive for COVID-19 she was admitted to medical floor pulmonary consultation was requested On 04/22/2021 patient was seen and examined on the medical floor she is complaining of cough , and complaining of pain in her hips when she coughs otherwise she denies any complaints, there is no fever or chills no headache or dizziness no chest pain no shortness of breath no nausea or vomiting no abdominal pain no diarrhea and no urinary symptoms On 04/23/2021 patient was seen and examined on the medical floor she is complaining of cough complaining of migraine headache and back pain otherwise she denies any complaints there is no fever or chills no headache or dizziness no chest pain no shortness of breath no nausea or vomiting no abdominal pain no diarrhea no blood in the stools no burning with urination no frequency or u rgency and no hematuria On 04/24/2021 patient was seen and examined on the medical floor she is alert and oriented 3 in no apparent distress she is still complaining of cough and complaining of generalized pain otherwise she denies any complaints, she is maintained on TPN, she would need to return home on her previous regimen of TPN as prior to admission. On 10/08/2019 patient was seen and examined on the medical floor she is alert and oriented 3 in no apparent distress, she is complaining of cough, and complaining of pain in the ribs area while she coughs she is maintained on [place] 10 mg 1 every 6 hours when necessary she is also receiving Fioricet frequently for headache she is requesting Dilaudid constantly, she is also maintained on fentanyl patch , she was counseled in length, in regard to dependence on pain medications, she will be given 1 dose of Dilaudid 0.5 mg IV at this time On 04/26/2021 patient was seen and examined on the medical floor she is alert and oriented 3 in no apparent distress there is no fever or chills no headache or dizziness she is still complaining of rib pain when she coughs otherwise she denies any complaints Objective - Vital Signs Vital signs: Vital Signs Temp 97.7 F 04/26/21 07:39 Pulse 84 04/26/21 07:39 Resp 18 04/26/21 07:39 BP 150/66 04/26/21 07:39 Pulse Ox 100 04/26/21 07:39 Intake & Output 04/25/21 04/26/21 04/26/21 18:59 06:59 18:59 Intake Total 318 Balance 318 Weight 41.73 kg Intake: Oral 318 Other: Voiding Method Bedside Commode # Voids 1 2 # Bowel Movements 1 - Exam In general patient is alert and oriented x 3 in no distress HEENT head normocephalic and atraumatic Neck is supple no JVD no goiter no lymphadenopathy no carotid bruit Chest examination reveals a scattered crackles bilaterally no wheezing Cardiac exam reveals regular heart sounds S1 and S2 no gallops no murmurs Abdomen is soft nontender no organomegaly with normal bowel sounds Extremity exam reveals no edema no cyanosis or clubbing Neurological examination reveals no gross focal deficits - Labs CBC & Chem 7: 04/26/21 07:08 04/26/21 07:08 Labs: Abnormal Lab Results - Last 24 Hours (Table) 04/26/21 Range/Units 07:08 Sodium 136 L (137-145) mmol/L Chloride 111 H (98-107) mmol/L Carbon Dioxide 19 L (22-30) mmol/L BUN 41 H (7-17) mg/dL Creatinine 1.46 H (0.52-1.04) mg/dL Glucose 103 H (74-99) mg/dL Calcium 8.3 L (8.4-10.2) mg/dL Microbiology - Last 24 Hours (Table) 04/21/21 11:30 Blood Culture - Preliminary Blood No Growth after 96 hours 04/21/21 11:05 Blood Culture - Preliminary Blood No Growth after 96 hours Assessment and Plan Plan: Acute bilateral infiltrates most likely related to aspiration pneumonia Positive COVID-19 testing in the emergency room Underlying history of recurrent aspiration pneumonia maintained on TPN Underlying history of chronic kidney disease stage III Evidence of hyponatremia on presentation Elevated liver enzymes AST and ALT on presentation Underlying history of hypothyroidism Underlying history of degenerative osteoarthritis Previous episodes of pancreatitis Underlying history of chronic back pain with history of laminectomy History of partial bowel obstruction History of depression with anxiety disorder History of migraine headache History of severe protein calorie malnutrition At this time patient is admitted to medical floor Infectious disease consultation and pulmonary consultation were requested Patient was started on IV steroids, subcu Lovenox Prognosis is guarded will follow closely
[2021-04-26] MEDS: 1: MVI, ADULT NO.4 WITH VIT K 10 ML, TRACE (CONC-1ML/DOSE) 1 ML in AMINO ACID 5%-D20W+LY IV SCH ×3 (13:56)
--- NOTE | 2021-04-26 18:31 | PN ---
PROGRESS NOTE DATE OF SERVICE: 04/26/2021 REASON FOR FOLLOWUP: COVID-19 pneumonia. INTERVAL HISTORY: The patient is afebrile. The patient is currently breathing comfortably on room air. Still complaining of lower rib pain. Continues to have a cough; not bringing up any sputum, though. No vomiting. No abdominal pain or diarrhea. PHYSICAL EXAMINATION: Blood pressure 137/74 with a pulse of 93, temperature . She is 99% on room air. General description is an elderly female lying in bed in no distress. Respiratory system: Unlabored breathing, decreased intensity of breath sounds. No wheeze. Heart S1, S2. Regular rate and rhythm. Abdomen soft, no tenderness. LABS: Hemoglobin . DIAGNOSTIC IMPRESSION AND PLAN: Patient admitted to hospital with acute COVID-19 pneumonia in this patient patient is currently off the oxygen. To continue with dexamethasone, Lovenox, zinc and ascorbic acid along with respiratory support while monitoring clinical course closely. MMODL / IJN: [id number] /
[2021-04-26] MEDS: LORazepam 0.5 MG TAB PO SCH (21:09)
[2021-04-26] MEDS: MIRTAZAPINE 15 MG TAB PO SCH (21:09)
[2021-04-27] MEDS: LEVOTHYROXINE 88 MCG TAB PO SCH (06:07)
[2021-04-27 07:43] LABS: ALT 49 U/L (4-34); AST 42 U/L (14-36); African American GFR (CKD) 45 (>60 ml/min/1.73 sqM); Albumin 2.9 g/dL (3.5-5.0); Albumin/Globulin Ratio 0.9; Alkaline Phosphatase 222 U/L (38-126); Anion Gap 7 mmol/L; Blood Urea Nitrogen 45 mg/dL (7-17); Calcium 8.7 mg/dL (8.4-10.2); Carbon Dioxide 18 mmol/L (22-30); Chloride 112 mmol/L (98-107); Globulin 3.3 g/dL; Glucose 92 mg/dL (74-99); Magnesium 2.1 mg/dL (1.6-2.3); Non-African American GFR(CKD) 39 (>60 ml/min/1.73 sqM); Phosphorus 3.6 mg/dL (2.5-4.5); Potassium 4.5 mmol/L (3.5-5.1); Sodium 137 mmol/L (137-145); Total Bilirubin 0.3 mg/dL (0.2-1.3); Total Protein 6.2 g/dL (6.3-8.2)
[2021-04-27] MEDS: HYDROcodone/APAP 10-325MG 1 EACH TAB PO PRN ×2 (07:50→13:53)
[2021-04-27] MEDS: SYMBICORT 160-4.5 MCG INHALER INHALATION SCH (08:12)
[2021-04-27] MEDS ORDERED: SODIUM FERRIC GLUCONAT-SUCROSE 125 MG in SODIUM CHLORIDE 0.9% 100 ML IVPB ONE (09:00)
[2021-04-27] MEDS: busPIRone HCl 10 MG TAB PO SCH (09:05)
[2021-04-27] MEDS: ENOXAPARIN 30 MG/0.3 ML SYRINGE SQ SCH (09:05)
[2021-04-27] MEDS: ASPIRIN 81 MG PO SCH (09:06)
[2021-04-27] MEDS: PANTOPRAZOLE 40 MG TABLET PO SCH (09:06)
[2021-04-27] MEDS: hydrOXYzine pamoate 25 MG CAP PO SCH (09:06)
[2021-04-27] MEDS: buPROPion XL 300 MG TAB.ER.24H PO SCH (09:07)
[2021-04-27] MEDS: dexAMETHasone 2 MG TAB PO SCH (09:07)
[2021-04-27] MEDS: buPROPion XL 150 MG TAB.ER.24H PO SCH (09:07)
[2021-04-27] MEDS: BUTALB/APAP/CAFF 50-325-40MG TAB PO PRN ×2 (09:32→14:55)
[2021-04-27] MEDS: 1: MVI, ADULT NO.4 WITH VIT K 10 ML, TRACE (CONC-1ML/DOSE) 1 ML in AMINO ACID 5%-D20W+LY IV SCH ×3 (09:33)
[2021-04-27] MEDS: FLUTICASONE 50MCG/SPRAY NASAL 16GM EA NOSTRIL SCH (10:54)
[2021-04-27 11:34] LABS: Basophils # (A) 0.04 X 10*3/uL (0.00-0.10); Basophils % (A) 0.4 %; Eosinophils # (A) 0.13 X 10*3/uL (0.04-0.35); Eosinophils % (A) 1.2 %; HGB 7.3 g/dL (12.0-15.0); Lymphocytes # (A) 1.94 X 10*3/uL (0.90-5.00); Lymphocytes % (A) 17.9 %; MCH 24.6 pg (27.0-32.0); MCHC 28.1 g/dL (32.0-37.0); MCV 87.5 fL (80.0-97.0); Mean Platelet Volume 8.7 fL (9.5-12.2); Monocytes # (A) 0.85 X 10*3/uL (0.20-1.00); Monocytes % (A) 7.8 %; Neutrophils # (A) 7.67 X 10*3/uL (1.80-7.70); Neutrophils % (A) 70.6 %; Platelet Count 410 X 10*3/uL (140-440); RBC 2.97 X 10*6/uL (4.10-5.20); RDW 18.2 % (11.5-14.5); WBC 10.86 X 10*3/uL (4.50-10.00)
[2021-04-27 13:42] VITALS: BP 134/76; PULSE 94; RESP 18; TEMP 98.4
--- NOTE | 2021-04-27 13:59 | P.PN ---
Subjective Progress Note Date: 04/27/21 76-year-old female, well-known to us, with a history of multiple episodes of aspiration pneumonia. The patient came into the emergency department, on April 21, complaining of shortness of breath, cough, headache, chest pain. She feels like someone is sitting on her chest. The patient was just recently in the hospital. The patient has now tested positive for coronavirus infection. Her chest x-ray shows diffuse bilateral infiltrates, which could be consistent with coronavirus associated pneumonia. The patient's currently on 2 L nasal cannula. She did not appear to be in any significant respiratory distress. She is not receiving any IV fluids. She did receive monoclonal antibodies on y 2. Dopplers of her bilateral lower extremities were negative for DVT. White count was 5.91, hemoglobin 7.6, hematocrit 26.3, and platelet count 368,000. D- dimer was 1.55. Sodium 136, potassium 5, chlorides 100, CO2 23, anion gap 13, BUN 27.9, and creatinine 1.4. The patient's troponins were negative 3. Progress note dated 04/23/2021. The patient's resting comfortably in room 631. She is on 3 L nasal cannula. She's getting saline at 75 mL an hour. She is feeling much better. She was admitted with a diagnosis of acute hypoxemic respiratory failure secondary to coronavirus associated pneumonia. Her pro-calcitonin level is 0.22. The patient is receiving appropriate medications. I discussed that with him today. She did receive monoclonal antibodies on April 21. Labs today include a sodium 137, potassium 5, chlorides 106, anion gap 13, CO2 18, BUN 24, creatinine 1.47. AST was 122 with an ALT of 73. The patient is seen today 04/24/2021 in follow-up on the regular medical floor. She is currently resting quite comfortably in bed. Awake and alert in no acute distress. Maintaining O2 saturations in the 90s on 2 L/m per nasal cannula. She's been afebrile. Hemodynamically stable. Blood cultures reveal no growth today. Sodium 137. Potassium 4.3. Bicarb 19. BUN 31. Creatinine 1.55. AST 63. ALT 52. She is continued on Decadron, Lovenox. He is continued on Symbicort, albuterol. Being nourished with her TPN and lipids. The patient is seen today 04/25/2021 in follow-up on the regular medical floor. She is awake and alert in no acute distress. She is feeling back to her baseline. No worsening shortness of breath, cough or congestion. No fever chil ls. Chest x-ray showing stable right upper lobe and left midlung infiltrates. No antibiotics required per ID services. She is having a headache. She is waiting for Fioricet that usually helps. She is continued on Symbicort, albuterol, Decadron. Lovenox for DVT prophylaxis. She has been nourished with TPN and lipids as scheduled. The patient is seen today 04/26/2021 in follow-up on the regular medical floor. She is resting comfortably in bed. Awake and alert in no acute distress. She is maintaining O2 saturations in the 90s on room air. She is continued on Decadron, Lovenox, vitamin supplements. She does have a lot of complaints of pain. She has a fentanyl patch on. She is asking for Dilaudid frequently. She's asking for [place]. She is being nourished with her TPN and lipids. Her weight is only 42 kg. D-dimer 1.66. Sodium 136. Potassium 4.5. Creatinine 1.46. The patient is seen today 04/27/2021 in follow-up on the regular medical floor. She is currently sitting up in a chair at the bedside. Awake and alert in no acute distress. Maintaining good O2 saturations in the 90s on room air. No worsening shortness of breath, cough or congestion. She continues to complain of some chest wall discomfort. She is receiving IV iron replacement. Blood cultures revealed no growth. White count 10.8. Hemoglobin 7.3. Sodium 137. Potassium 4.5. Creatinine 1.35. AST 42. ALT 49. Objective - Vital Signs Vital signs: Vital Signs Temp 98.4 F 04/27/21 13:41 Pulse 94 04/27/21 13:41 Resp 18 04/27/21 13:41 BP 134/76 04/27/21 13:41 Pulse Ox 98 04/27/21 13:41 Intake & Output 04/26/21 04/27/21 04/27/21 18:59 06:59 18:59 Intake Total 1351 240 Balance 1351 240 Weight 41.73 kg Intake: Intake, IV Titration 1011 Amount Mvi, Adult No.4 with Vit 1011 K 10 ml Trace (Conc-1Ml/ Dose) 1 ml In Amino Acid 5%-D20w+Lytes*E* 1,000 ml @ 50 mls/hr IV .BY DURATION CHAD Rx#: [id number] Oral 340 240 Other: # Voids 2 2 1 # Bowel Movements 1 1 1 - Exam Very pleasant cachectic and frail appearing 76-year-old female patient. No acute distress, oriented 3. The patient is currently on room air. Saturations are 98%. HEENT examination is grossly unremarkable. Mucous membranes are dry. Neck supple. Full range of motion. No adenopathy thyromegaly or neck vein distention. Cardiovascular examination reveals regular rhythm rate. S1-S2 normal. No S3 or S4. No discernible murmur noted. Heart sounds are distant. Heart rate 94 bpm. Lungs reveal bilateral scattered rhonchi. Abdomen soft, without bowel sounds. No masses. No tenderness. Extremities are intact. No cyanosis clubbing or edema. Skin is without rash or lesion. Neurologic examination is brief but nonfocal. - Labs CBC & Chem 7: 04/27/21 07:07 04/27/21 07:07 Labs: Abnormal Lab Results - Last 24 Hours (Table) 04/27/21 04/27/21 Range/Units 07:07 07:07 WBC 10.86 H (4.50-10.00) X 10*3/uL RBC 2.97 L (4.10-5.20) X 10*6/uL Hgb 7.3 L (12.0-15.0) g/dL Hct 26.0 L (37.2-46.3) % MCH 24.6 L (27.0-32.0) pg MCHC 28.1 L (32.0-37.0) g/dL RDW 18.2 H (11.5-14.5) % MPV 8.7 L (9.5-12.2) fL Immature Gran # 0.23 H (0.00-0.04) X 10*3/uL Chloride 112 H (98-107) mmol/L Carbon Dioxide 18 L (22-30) mmol/L BUN 45 H (7-17) mg/dL Creatinine 1.35 H (0.52-1.04) mg/dL AST 42 H (14-36) U/L ALT 49 H (4-34) U/L Alkaline Phosphatase 222 H (38-126) U/L Total Protein 6.2 L (6.3-8.2) g/dL Albumin 2.9 L (3.5-5.0) g/dL Microbiology - Last 24 Hours (Table) 04/21/21 11:05 Blood Culture - Final Blood No Growth after 144 hours 04/21/21 11:30 Blood Culture - Preliminary Blood No Growth after 120 hours Assessment and Plan Assessment: 1 Acute shortness of breath, likely related to coronavirus associated pneumonia. Chest x-ray continues to revealed stable right upper lobe and left midlung infiltrates. Currently not on antibiotics. ID service is on the case. 2 History of COPD with multiple COPD exacerbations. 3 History of chronic aspiration pneumonia. 4 Gastroesophageal reflux disease. 5 History of hypothyroidism. 6 History of migraine cephalgia. 7 History of pancreatitis. 8 History of chronic kidney disease. 9 History of anorexia/cachexia syndrome. Plan: The patient was seen and evaluated today Cleared for discharge from the pulmonary standpoint On room air We will see as needed Follow-up in the office in 3-4 weeks I, the cosigning physician, performed a history & physical examination of the patient. Lungs sounds with bilateral scattered rhonchi. Maintaining good O2 saturations in the 90s on room. I discussed the assessment and plan of care with my nurse practitioner, Leyla Grace. I attest to the above note as dictated by her.
--- NOTE | 2021-04-27 15:07 | P.DS ---
Providers Date of admission: 04/22/21 15:27 Expected date of discharge: 04/27/21 Attending physician: Palmer Desir Consults: 04/21/21 14:13 Consult Physician Urgent Consulting Provider: [facility] Consult Reason/Comments: Chest pain Do you want consulting provider notified?: Yes 04/21/21 19:44 Consult Physician Routine Consulting Provider: Jas Gregorio Consult Reason/Comments: covid, aspiration pneumonia Do you want consulting provider notified?: Yes 04/22/21 13:51 Consult Physician Routine Consulting Provider: Garry Sanchez Consult Reason/Comments: covid pneumonia Do you want consulting provider notified?: Yes Primary care physician: Ale Eli Hospital Course: Diagnosis on discharge: Acute bilateral infiltrates most likely related to aspiration pneumonia Positive COVID-19 testing in the emergency room Underlying history of recurrent aspiration pneumonia maintained on TPN Underlying history of chronic kidney disease stage III Evidence of hyponatremia on presentation Elevated liver enzymes AST and ALT on presentation Underlying history of hypothyroidism Underlying history of degenerative osteoarthritis Previous episodes of pancreatitis Underlying history of chronic back pain with history of laminectomy History of partial bowel obstruction History of depression with anxiety disorder History of migraine headache History of severe protein calorie malnutrition Hospital course: Louise Sutton is a 76-year-old female patient of Dr. Eli who was admitted to [facility] on 04/21/2021 history and physical was done by Dr. Macedo who was covering for me. I am taking care over the care of this patient on 04/22/2021 Patient has a known history of multiple admissions for aspiration pneumonia she is currently maintained on TPN She presented with symptoms of cough and shortness of breath however testing at this time in the emergency room was positive for COVID-19 she was admitted to medical floor pulmonary consultation was requested On 04/22/2021 patient was seen and examined on the medical floor she is complaining of cough , and complaining of pain in her hips when she coughs otherwise she denies any complaints, there is no fever or chills no headache or dizziness no chest pain no shortness of breath no nausea or vomiting no abdominal pain no diarrhea and no urinary symptoms On 04/23/2021 patient was seen and examined on the medical floor she is complaining of cough complaining of migraine headache and back pain otherwise she denies any complaints there is no fever or chills no headache or dizziness no chest pain no shortness of breath no nausea or vomiting no abdominal pain no diarrhea no blood in the stools no burning with urination no frequency or urgency and no hematuria On 04/24/2021 patient was seen and examined on the medical floor she is alert and oriented 3 in no apparent distress she is still complaining of cough and complaining of generalized pain otherwise she denies any complaints, she is maintained on TPN, she would need to return home on her previous regimen of TPN as prior to admission. On 10/08/2019 patient was seen and examined on the medical floor she is alert and oriented 3 in no apparent distress, she is complaining of cough, and complaining of pain in the ribs area while she coughs she is maintained on [place] 10 mg 1 every 6 hours when necessary she is also receiving Fioricet frequently for headache she is requesting Dilaudid constantly, she is also maintained on fentanyl patch , she was counseled in length, in regard to dependence on pain medications, she will be given 1 dose of Dilaudid 0.5 mg IV at this time On 04/26/2021 patient was seen and examined on the medical floor she is alert and oriented 3 in no apparent distress there is no fever or chills no headache or dizziness she is still complaining of rib pain when she coughs otherwise she denies any complaints. On 04/27/2021 patient was seen and examined on the medical floor she is oriented 3 in no apparent distress she is feeling better with less cough and there is shortness of breath, O2 sat duration is 90% on room air, she was evaluated by pulmonary and by infectious disease and was cleared for discharge, prescriptions for Decadron 6 mg once daily for 10 days and 4 aspirin 81 mg daily were given, follow-up with primary care physician Dr. Eli within 1 week Plan - Discharge Summary Discharge Rx Participant: No New Discharge Prescriptions: New Aspirin 81 mg PO DAILY tab dexAMETHasone ORAL [Hexadrol] 6 mg PO DAILY tab Continue Ferrous Sulfate [Iron (65 MG Elemental)] 325 mg PO DAILY@1200 calcitrioL [Calcitriol] 1 mcg PO MOWEFR Levothyroxine Sodium [Synthroid] 88 mcg PO DAILY busPIRone HCL [Buspar] 30 mg PO BID hydrOXYzine pamoate [hydrOXYzine PAMOATE] 25 mg PO TID Potassium Chloride ER [K-Dur 10] 30 meq PO DAILY@1200 Pantoprazole Sodium [Protonix] 40 mg PO BID 30 Days #60 tablet. Butalb/APAP/Caff 50-325-40Mg [Fioricet 50-325-40] 1 tab PO BID PRN PRN Reason: Migraine Headache buPROPion XL [Wellbutrin XL] 150 mg PO DAILY HYDROcodone/APAP 10-325MG [Coward 10-325] 1 tab PO BID PRN PRN Reason: Pain fentaNYL 75MCG/HR PATCH [Duragesic 75MCG/HR] 1 patch TRANSDERM Q72H 3 Days #3 patch Furosemide [Lasix] 20 mg PO DAILY #6 tab Mirtazapine [Remeron] 45 mg PO HS Albuterol Sulfate [Albuterol Sulfate Hfa] 2 puff INHALATION RT-Q6H PRN PRN Reason: Shortness Of Breath buPROPion XL [Wellbutrin XL] 300 mg PO DAILY Tpn 1 dose IV DAILY@1900 Budesonide/Formoterol Fumarate [Symbicort 160-4.5 Mcg Inhaler] 2 puff INHALATION RT-BID Fluticasone Nasal [place] [Flonase Nasal [place]] 2 spray EA NOSTRIL BID Loratadine [Claritin] 10 mg PO DAILY Discharge Medication List Ferrous Sulfate [Iron (65 MG Elemental)] 325 mg PO DAILY@1200 11/06/15 [History] Levothyroxine Sodium [Synthroid] 88 mcg PO DAILY 06/07/19 [History] calcitrioL [Calcitriol] 1 mcg PO MOWEFR 06/07/19 [History] busPIRone HCL [Buspar] 30 mg PO BID 04/14/20 [History] Potassium Chloride ER [K-Dur 10] 30 meq PO DAILY@1200 04/18/20 [History] hydrOXYzine pamoate [hydrOXYzine PAMOATE] 25 mg PO TID 04/18/20 [History] Pantoprazole Sodium [Protonix] 40 mg PO BID 30 Days #60 tablet. 04/27/20 [Rx] Butalb/APAP/Caff 50-325-40Mg [Fioricet 50-325-40] 1 tab PO BID PRN 06/30/20 [History] buPROPion XL [Wellbutrin XL] 150 mg PO DAILY 11/04/20 [History] Furosemide [Lasix] 20 mg PO DAILY #6 tab 12/13/20 [Rx] HYDROcodone/APAP 10-325MG [C[place]ard 10-325] 1 tab PO BID PRN 12/13/20 [History] fentaNYL 75MCG/HR PATCH [Duragesic 75MCG/HR] 1 patch TRANSDERM Q72H 3 Days #3 patch 12/13/20 [Rx] Tpn 1 dose IV DAILY@1900 02/20/21 [History] buPROPion XL [Wellbutrin XL] 300 mg PO DAILY 02/20/21 [History] Albuterol Sulfate [Albuterol Sulfate Hfa] 2 puff INHALATION RT-Q6H PRN 04/07/21 [History] Budesonide/Formoterol Fumarate [Symbicort 160-4.5 Mcg Inhaler] 2 puff INHALATION RT-BID 04/07/21 [History] Fluticasone Nasal [place] [Flonase Nasal [place]] 2 spray EA NOSTRIL BID 04/07/21 [History] Loratadine [Claritin] 10 mg PO DAILY 04/07/21 [History] Mirtazapine [Remeron] 45 mg PO HS 04/07/21 [History] Aspirin 81 mg PO DAILY tab 04/27/21 [Rx] dexAMETHasone ORAL [Hexadrol] 6 mg PO DAILY tab 04/27/21 [Rx] Follow up Appointment(s)/Referral(s): Ale Eli MD [Primary Care Provider] - 1-2 days [facility], [NON-STAFF] - 1-2 Days Activity/Diet/Wound Care/Special Instructions: [facility] can be reached at [phone] with any questions.
[2021-04-27] MEDS: SODIUM CHLORIDE 0.9% 1,000 ML IV SCH (18:56)
--- NOTE | 2021-04-27 19:05 | PN ---
PROGRESS NOTE DATE OF SERVICE: 04/27/2021 REASON FOR FOLLOW UP: Covid 19 pneumonia. INTERVAL HISTORY: The patient was seen on rounds early this afternoon. The patient has been afebrile. The patient has been breathing comfortably on room air. Patient mentioned feeling better. Denies any chest pain. No worsening cough or sputum production. No abdominal pain. No diarrhea. PHYSICAL EXAMINATION: Blood pressure 134/76, pulse 94, temp 98.4. She is 98% on room air. General description is an elderly female up in the bed in no distress. Respiratory system: Unlabored breathing, decreased intensity in breath sounds. No wheeze. Heart S1, S2. Regular rate and rhythm. Abdomen soft, no tenderness. LABS: Hemoglobin 10.4, white count creatinine 1.3. DIAGNOSTIC IMPRESSION AND PLAN: Patient with acute Covid 19 pneumonia in this patient shown overall clinical improvement with current supportive treatment. Finishing therapy with short course of dexamethasone . No need for systemic antibiotics. MMODL / IJN: [id number] /
== END 2021-04-27 15:45 | disposition home health service (06) | DRG 177 ==
LOC: EC 10:16 → 6NMEDSUR 14:13 → OBSVTOIN 04-22 15:27 → 6NMEDSUR 04-22 17:39
PROVIDERS: ADMIT Internal Medicine; ATTEND Internal Medicine
PROC: XW033F6 Introduction of Bamlanivimab Monoclonal Antibody into Peripheral Vein, Percutaneous Approach, New Technology Group 6 (ICD-10-PCS; principal; 2021-04-21)
PROC: 3E0333Z Introduction of Anti-inflammatory into Peripheral Vein, Percutaneous Approach (ICD-10-PCS; 2021-04-21)
DX: J69.0 Pneumonitis due to inhalation of food and vomit (principal); U07.1 COVID-19; J12.82 Pneumonia due to coronavirus disease 2019; E43 Unspecified severe protein-calorie malnutrition; J96.01 Acute respiratory failure with hypoxia; Z68.1 Body mass index [BMI] 19.9 or less, adult; E87.1 Hypo-osmolality and hyponatremia; J44.0 Chronic obstructive pulmonary disease with (acute) lower respiratory infection; D64.9 Anemia, unspecified; E03.9 Hypothyroidism, unspecified; F41.0 Panic disorder [episodic paroxysmal anxiety]; G43.909 Migraine, unspecified, not intractable, without status migrainosus; K21.9 Gastro-esophageal reflux disease without esophagitis; N18.30 Chronic kidney disease, stage 3 unspecified; Z79.51 Long term (current) use of inhaled steroids; Z79.890 Hormone replacement therapy; Z79.899 Other long term (current) drug therapy; Z80.41 Family history of malignant neoplasm of ovary; Z80.51 Family history of malignant neoplasm of kidney; Z82.49 Family history of ischemic heart disease and other diseases of the circulatory system; Z86.73 Personal history of transient ischemic attack (TIA), and cerebral infarction without residual deficits; Z87.01 Personal history of pneumonia (recurrent); Z87.11 Personal history of peptic ulcer disease; Z90.49 Acquired absence of other specified parts of digestive tract; Z90.710 Acquired absence of both cervix and uterus
CPT/HCPCS: 36415; 71045; 71046; 80048; 80053; 80061; 82330; 83605; 83615; 83735; 84100; 84145; 84484; 85025; 85379; 85610; 85730; 86140; 87040; 87635; 93005; 93306; 93970; 94640; 96360; 96361; 96372; 99285

== ENCOUNTER 2021-05-04 12:23 | Inpatient (IN) | payer MEDICARE, OTHER ==
[2021-05-04] MEDS ORDERED: HYDROmorphone 0.5 MG/0.5 ML SYRINGE IVP STA (12:45)
--- NOTE | 2021-05-04 12:52 | ED ---
General Adult HPI - General Stated complaint: Covid+,DOTNE Time Seen by Provider: 05/04/21 12:26 - History of Present Illness Initial comments: Dictation was produced using [employer] dictation software. please excuse any grammatical, word or spelling errors. Chief Complaint: 76-year-old female presents emergency department for chest pain and shortness of breath History of Present Illness: Patient is 76-year-old female she was recently a dmitted to the hospital on April 21. She was discharged on April 27. Patient was admitted for chest pain, COVID-19 aspiration pneumonia. Patient takes TPN. She is a history of chronic kidney disease patient also has history of opiate use disorder. Patient states that she has pain in her epigastric and substernal area. States that it is sharp and worse with deep inspiration and movement. P atient states she is also short of breath. States that she is being treated by lung doctor for "holes in my lungs." She was discharged. Patient states that her symptoms have been ongoing for last 2-3 days. She states that she ran out of her narcotic medications recently. Patient was brought in by EMS. The ROS documented in this emergency department record has been reviewed and confirmed by me. Those systems with pertinent positive or negative responses have been documented in the HPI. All other systems are other negative and/or noncontributory. PHYSICAL EXAM: General Impression: Alert and oriented x3, not in acute distress, cachectic HEENT: Normocephalic atraumatic, extra-ocular movements intact, pupils equal and reactive to light bilaterally, dry mucous membranes Cardiovascular: Tachycardic Chest: Able to complete full sentences, no retractions, no tachypnea Abdomen: abdomen soft, diffuse tenderness, voluntary guarding, non-distended, no organomegaly Musculoskeletal: Pulses present and equal in all extremities, no peripheral edema Motor: no focal deficits noted Neurological: CN II-XII grossly intact, no focal motor or sensory deficits noted Skin: Intact with no visualized rashes Psych: Normal affect and mood ED course: 76-year-old female multiple comorbidities presents to the emergency department for chest and epigastric pain. Vital signs arrival shows heart rate of 120, rest of vital signs within acceptable limits. EKG interpretation: Ventricular rate 114, sinus tachycardia, NE interval 1:30, QRS 72, QTc 446. No NE prolongation, no QTC prolongation, no ST or T-wave changes noted. EKG compared to April showing no changes. Overall, this EKG is unremarkable laboratory evaluation obtained. Leukocytosis of 15.2, hemoglobin 9.5 which is above her baseline. Coag panel is normal. D-dimer 6.13. GFR is 38 with a creatinine 1.37 BUN of 42. This is around her normal kidney function. Patient has elevated liver enzymes likely secondary to chronic TPN. Rest of labs unremarkable. Patient is a complex medical patient with multiple comorbidities. She is still tachycardic above 100 despite treatment with analgesics.. Chart r eview was performed. Patient's heart rate is typically between 80 and 95. X- ray shows not [place] abdomen. X-ray shows scattered bilateral lung infiltrates suspicious for acute pneumonia. Radiologist did not compared today's film with previous images.. His images appear to be comparable. At this point differential includes pulmonary infection and pulmonary embolus. Case is discussed with agricultural service technician and they report the patient's son candidate for contrast given her kidney function levels. There is a delay with performing VQ scan. Patient will be started on heparin empirically. Patient hemoglobin is stable. Patient also given pulmonary advised to treat for pneumonia. VQ scan shows low probability for embolus. No perfusion mismatch defects. Heparin was discontinued. Patient reevaluated at 6:10 PM finally stable medical condition. There is concern for pulmonary infection. Patient be continued on antibiotics. Patient be admitted to Dr. Desir with pulmonary on consult. - Related Data Home Medications Medication Instructions Recorded Confirmed Ferrous Sulfate [Iron (65 MG 325 mg PO DAILY@1200 11/06/15 05/04/21 Elemental)] Levothyroxine Sodium [Synthroid] 88 mcg PO DAILY 06/07/19 05/04/21 calcitrioL [Calcitriol] 1 mcg PO MOWEFR 06/07/19 05/04/21 busPIRone HCL [Buspar] 30 mg PO BID 04/14/20 05/04/21 Potassium Chloride ER [K-Dur 10] 30 meq PO DAILY@1200 04/18/20 05/04/21 hydrOXYzine pamoate [hydrOXYzine 25 mg PO TID 04/18/20 05/04/21 PAMOATE] Butalb/APAP/Caff 50-325-40Mg 1 tab PO BID PRN 06/30/20 05/04/21 [Fioricet 50-325-40] buPROPion XL [Wellbutrin XL] 150 mg PO DAILY 11/04/20 05/04/21 HYDROcodone/APAP 10-325MG [[place] 1 tab PO BID PRN 12/13/20 05/04/21 10-325] Tpn 1 dose IV DAILY@1900 02/20/21 05/04/21 buPROPion XL [Wellbutrin XL] 300 mg PO DAILY 02/20/21 05/04/21 Albuterol Sulfate [Albuterol 2 puff INHALATION RT-Q6H PRN 04/07/21 05/04/21 Sulfate Hfa] Budesonide/Formoterol Fumarate 2 puff INHALATION RT-BID 04/07/21 05/04/21 [Symbicort 160-4.5 Mcg Inhaler] Fluticasone Nasal [place] [Flonase 2 spray EA NOSTRIL BID 04/07/21 05/04/21 Nasal [place]] Loratadine [Claritin] 10 mg PO DAILY 04/07/21 05/04/21 Mirtazapine [Remeron] 45 mg PO HS 04/07/21 05/04/21 Benzonatate [Tessalon Perles] 100 mg PO TID PRN 05/04/21 05/04/21 Dexamethasone 6 mg PO DAILY 05/04/21 05/04/21 SUMAtriptan succinate [Imitrex] 50 mg PO BID PRN 05/04/21 05/04/21 Thiamine [Vitamin B-1] 100 mg PO DAILY 05/04/21 05/04/21 Previous Rx's Medication Instructions Recorded Pantoprazole Sodium [Protonix] 40 mg PO BID 30 Days #60 tablet. 04/27/20 Furosemide [Lasix] 20 mg PO DAILY #6 tab 12/13/20 fentaNYL 75MCG/HR PATCH [Duragesic 1 patch TRANSDERM Q72H 3 Days #3 12/13/20 75MCG/HR] patch Aspirin 81 mg PO DAILY tab 04/27/21 Allergies Allergy/AdvReac Type Severity Reaction Status Date / Time denosumab [From Prolia] Allergy SEVERE Verified 05/04/21 15:52 CALCIUM LOSS morphine AdvReac Confusion Verified 05/04/21 15:52 DUST Allergy Itching Uncoded 04/21/21 10:25 MOLDS Allergy Itching Uncoded 04/21/21 10:25 Review of Systems ROS Statement: Those systems with pertinent positive or pertinent negative responses have been documented in the HPI. ROS Other: All systems not noted in ROS Statement are negative. 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 History of Any Multi-Drug Resistant Organisms: None Reported Past Surgical History: Back Surgery, Bowel Resection, Hysterectomy, Joint Replacement Additional Past Surgical History / Comment(s): LOWER BACK SURGERY lamenectomy/discetomy then had a revison of that sx. 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, nasal sx d/t broken nose, colonoscopy/egd, PAIN CLINIC PROCEDURES, PORT A CATH INSERTION, LT ADEOLA, Past Anesthesia/Blood Transfusion Reactions: No Reported Reaction Additional Past Anesthesia/Blood Transfusion Reaction / Comment(s): PT RECIEVED BLOOD TRANSFUSIONS AFTER STOMACH SURGERY Past Psychological History: Anxiety, Depression, Panic Disorder Smoking Status: Never smoker Past Alcohol Use History: None Reported Past Drug Use History: None Reported - Past Family History Father Family Medical History: Cancer, Coronary Artery Disease (CAD) Additional Family Medical History / Comment(s): FATHER HAD BLADDER AND KIDNEY CANCER. FATHER HAD TB WHEN HE WAS A CHILD .FATHER AT AGE 87. Mother Family Medical History: Cancer Additional Family Medical History / Comment(s): MOTHER AT AGE 58 OF OVARIAN CANCER. Course Vital Signs 05/04/21 13:32 Temperature 98.1 F Pulse Rate 120 H Pulse Rate [ 118 H Left Wearing Apparel Presser] Respiratory 16 Rate Blood Pressure 162/94 O2 Sat by Pulse 99 Oximetry Medical Decision Making - Lab Data Result diagrams: 05/04/21 13:14 05/04/21 13:14 Lab Results 05/04/21 05/04/21 05/04/21 Range/Units 13:14 13:14 13:14 WBC 15.2 H (3.8-10.6) k/uL RBC 3.72 L (3.80-5.40) m/uL Hgb 9.5 L D (11.4-16.0) gm/dL Hct 32.7 L (34.0-46.0) % MCV 88.1 (80.0-100.0) fL MCH 25.5 (25.0-35.0) pg MCHC 29.0 L (31.0-37.0) g/dL RDW 21.1 H (11.5-15.5) % Plt Count 656 H (150-450) k/uL MPV 6.8 Neutrophils % 84 % Lymphocytes % 10 % Monocytes % 4 % Eosinophils % 0 % Basophils % 0 % Neutrophils # 12.7 H (1.3-7.7) k/uL Lymphocytes # 1.5 (1.0-4.8) k/uL Monocytes # 0.7 (0-1.0) k/uL Eosinophils # 0.1 (0-0.7) k/uL Basophils # 0.0 (0-0.2) k/uL Hypochromasia Marked Anisocytosis Moderate PT 9.6 (9.0-12.0) sec INR 0.9 (<1.2) APTT 18.6 L (22.0-30.0) sec D-Dimer 6.13 H (<0.60) mg/L FEU Sodium 140 (137-145) mmol/L Potassium 4.2 (3.5-5.1) mmol/L Chloride 104 (98-107) mmol/L Carbon Dioxide 23 (22-30) mmol/L Anion Gap 13 mmol/L BUN 42 H (7-17) mg/dL Creatinine 1.37 H (0.52-1.04) mg/dL Est GFR (CKD-EPI)AfAm 44 (>60 ml/min/1.73 sqM) Est GFR (CKD-EPI)NonAf 38 (>60 ml/min/1.73 sqM) Glucose 111 H (74-99) mg/dL Lactic Ac Sepsis Rflx Plasma Lactic Acid Jonah (0.7-2.0) mmol/L Calcium 9.7 (8.4-10.2) mg/dL Magnesium 2.0 (1.6-2.3) mg/dL Total Bilirubin 0.4 (0.2-1.3) mg/dL AST 50 H (14-36) U/L ALT 43 H (4-34) U/L Alkaline Phosphatase 268 H (38-126) U/L Troponin I (0.000-0.034) ng/mL Total Protein 7.4 (6.3-8.2) g/dL Albumin 3.8 (3.5-5.0) g/dL Lipase 382 H (23-300) U/L Coronavirus (PCR) (Not Detectd) 05/04/21 05/04/21 05/04/21 Range/Units 13:14 13:14 13:14 WBC (3.8-10.6) k/uL RBC (3.80-5.40) m/uL Hgb (11.4-16.0) gm/dL Hct (34.0-46.0) % MCV (80.0-100.0) fL MCH (25.0-35.0) pg MCHC (31.0-37.0) g/dL RDW (11.5-15.5) % Plt Count (150-450) k/uL MPV Neutrophils % % Lymphocytes % % Monocytes % % Eosinophils % % Basophils % % Neutrophils # (1.3-7.7) k/uL Lymphocytes # (1.0-4.8) k/uL Monocytes # (0-1.0) k/uL Eosinophils # (0-0.7) k/uL Basophils # (0-0.2) k/uL Hypochromasia Anisocytosis PT (9.0-12.0) sec INR (<1.2) APTT (22.0-30.0) sec D-Dimer (<0.60) mg/L FEU Sodium (137-145) mmol/L Potassium (3.5-5.1) mmol/L Chloride (98-107) mmol/L Carbon Dioxide (22-30) mmol/L Anion Gap mmol/L BUN (7-17) mg/dL Creatinine (0.52-1.04) mg/dL Est GFR (CKD-EPI)AfAm (>60 ml/min/1.73 sqM) Est GFR (CKD-EPI)NonAf (>60 ml/min/1.73 sqM) Glucose (74-99) mg/dL Lactic Ac Sepsis Rflx Plasma Lactic Acid Jonah 2.1 H* (0.7-2.0) mmol/L Calcium (8.4-10.2) mg/dL Magnesium (1.6-2.3) mg/dL Total Bilirubin (0.2-1.3) mg/dL AST (14-36) U/L ALT (4-34) U/L Alkaline Phosphatase (38-126) U/L Troponin I <0.012 (0.000-0.034) ng/mL Total Protein (6.3-8.2) g/dL Albumin (3.5-5.0) g/dL Lipase (23-300) U/L Coronavirus (PCR) Not Detected (Not Detectd) 05/04/21 Range/Units 13:48 WBC (3.8-10.6) k/uL RBC (3.80-5.40) m/uL Hgb (11.4-16.0) gm/dL Hct (34.0-46.0) % MCV (80.0-100.0) fL MCH (25.0-35.0) pg MCHC (31.0-37.0) g/dL RDW (11.5-15.5) % Plt Count (150-450) k/uL MPV Neutrophils % % Lymphocytes % % Monocytes % % Eosinophils % % Basophils % % Neutrophils # (1.3-7.7) k/uL Lymphocytes # (1.0-4.8) k/uL Monocytes # (0-1.0) k/uL Eosinophils # (0-0.7) k/uL Basophils # (0-0.2) k/uL Hypochromasia Anisocytosis PT (9.0-12.0) sec INR (<1.2) APTT (22.0-30.0) sec D-Dimer (<0.60) mg/L FEU Sodium (137-145) mmol/L Potassium (3.5-5.1) mmol/L Chloride (98-107) mmol/L Carbon Dioxide (22-30) mmol/L Anion Gap mmol/L BUN (7-17) mg/dL Creatinine (0.52-1.04) mg/dL Est GFR (CKD-EPI)AfAm (>60 ml/min/1.73 sqM) Est GFR (CKD-EPI)NonAf (>60 ml/min/1.73 sqM) Glucose (74-99) mg/dL Lactic Ac Sepsis Rflx Y Plasma Lactic Acid Jonah (0.7-2.0) mmol/L Calcium (8.4-10.2) mg/dL Magnesium (1.6-2.3) mg/dL Total Bilirubin (0.2-1.3) mg/dL AST (14-36) U/L ALT (4-34) U/L Alkaline Phosphatase (38-126) U/L Troponin I (0.000-0.034) ng/mL Total Protein (6.3-8.2) g/dL Albumin (3.5-5.0) g/dL Lipase (23-300) U/L Coronavirus (PCR) (Not Detectd) Disposition Clinical Impression: Dyspnea Disposition: ADMITTED IP TO THIS HOSP Condition: Fair Referrals: Ale Eli MD [Primary Care Provider] - 1-2 days
[2021-05-04 13:34] LABS: Anisocytosis Moderate; Basophils % (A) 0 %; Eosinophils # (A) 0.1 k/uL (0-0.7); Eosinophils % (A) 0 %; HCT 32.7 % (34.0-46.0); Hypochromasia Marked; Lymphocytes # (A) 1.5 k/uL (1.0-4.8); Lymphocytes % (A) 10 %; MCH 25.5 pg (25.0-35.0); MCV 88.1 fL (80.0-100.0); Mean Platelet Volume 6.8; Monocytes # (A) 0.7 k/uL (0-1.0); Monocytes % (A) 4 %; Neutrophils # (A) 12.7 k/uL (1.3-7.7); Neutrophils % (A) 84 %; Platelet Count 656 k/uL (150-450); RBC 3.72 m/uL (3.80-5.40); RDW 21.1 % (11.5-15.5); WBC 15.2 k/uL (3.8-10.6)
[2021-05-04 13:40] LABS: Albumin 3.8 g/dL (3.5-5.0); Calcium 9.7 mg/dL (8.4-10.2); Potassium 4.2 mmol/L (3.5-5.1); Total Bilirubin 0.4 mg/dL (0.2-1.3); Total Protein 7.4 g/dL (6.3-8.2)
--- NOTE | 2021-05-04 13:40 | XR ---
EXAMINATION TYPE: XR abdomen acute w cxr DATE OF EXAM: 05/04/2021 COMPARISON: None HISTORY: Epigastric pain TECHNIQUE: Supine, upright, and left side down lateral decubitus views of the abdomen are obtained. FINDINGS: There are scattered partially consolidative opacities in both lungs consistent with pneumonic infiltr ates. Heart size is normal. There is no pneumothorax or large pleural effusion. There is no free intr aperitoneal air. The bowel gas pattern is nonspecific and there is no evidence of obstruction. There are postsurgical changes in the lower lumbar spine. There is a prosthetic left hip. There are surgical clips in the re gion of the gastroesophageal junction. IMPRESSION: 1. Nonspecific abdomen without evidence of obstruction or free intraperitoneal air. 2. Scattered bilateral lung infiltrates suspicious for acute pneumonia. 3. Postsurgical changes
[2021-05-04 13:50] LABS: HGB 9.5 gm/dL (11.4-16.0); INR 0.9 (<1.2); Prothrombin Time 9.6 sec (9.0-12.0)
[2021-05-04 13:54] LABS: Partial Thromboplastin Time 18.6 sec (22.0-30.0)
[2021-05-04] MEDS ORDERED: cefTRIAXone IN SWFI 1,000 MG/10 ML SYRINGE IVP STA (13:57)
[2021-05-04] MEDS ORDERED: AZITHROMYCIN 500 MG in SODIUM CHLORIDE 0.9% 250 ML IVPB STA (13:57)
[2021-05-04] MEDS ORDERED: HEPARIN SODIUM 1,000 UN/ML (10ML VL) IV PRN (14:10)
[2021-05-04] MEDS ORDERED: HEPARIN SODIUM 1,000 UN/ML (10ML VL) IV ONE (14:10)
[2021-05-04] MEDS ORDERED: HEPARIN SOD,PORK IN 0.45% NACL 25,000 UNIT in 0.45% NACL 1 250ML.BAG IV SCH (14:15)
[2021-05-04] MEDS ORDERED: BUTALB/APAP/CAFF 50-325-40MG TAB PO STA (15:10)
[2021-05-04] MEDS ORDERED: NALOXONE 0.4 MG/ML 1 ML VIAL IV PRN (18:00)
[2021-05-04] MEDS ORDERED: ACETAMINOPHEN TAB 325 MG TAB PO PRN (18:00)
--- NOTE | 2021-05-04 18:03 | NM ---
EXAMINATION TYPE: NM pul vent and perfuse DATE OF EXAM: 05/04/2021 COMPARISON: Chest radiograph on 622. CT 04/08/2021 TECHNIQUE: Utilizing inhalation of 69.6 mCi Tc 99m DTPA aerosol and intravenous injection of 4.7 mCi of Tc 99m MAA, ventilation and perfusion images are acquired post injection in multiple projections. INDICATION: Patient age:Female; 76 years old; Reason for study: elevated d-dimer; , shortness of breath. FINDING: The ventilatory segment of the exam is within normal limits demonstrating normal wash in, equilibrium , and wash out phases. No abnormal areas of air trapping are identified. No mismatched defects are identified throughout the lungs. There is of increased radiotracer in areas of the lungs that correlate with areas of consolidation on prior prior CT. No wedge-shaped perfusion abnormalities identified. IMPRESSION: Low probability for embolus. No perfusion mismatch defects.
[2021-05-04] MEDS: SODIUM CHLORIDE 0.9% 1,000 ML IV SCH (18:16)
[2021-05-04] MEDS: oxyCODONE-APAP 5-325MG 1 EACH TAB PO PRN ×2 (18:19→22:20)
[2021-05-04 21:10] LABS: Glucose,Whole Blood 93 mg/dL (75-99)
[2021-05-04] MEDS ORDERED: HYDROcodone/APAP 10-325MG 1 EACH TAB PO PRN (23:45)
[2021-05-04] MEDS ORDERED: ALBUTEROL NEBULIZED 2.5 MG/3 ML INHALATION PRN (23:45)
[2021-05-05] MEDS: BUTALB/APAP/CAFF 50-325-40MG TAB PO PRN ×2 (00:17→09:34)
[2021-05-05] MEDS: MIRTAZAPINE 45 MG TABLET PO SCH ×2 (00:17→20:03)
[2021-05-05] MEDS: LEVOTHYROXINE 88 MCG TAB PO SCH (05:39)
[2021-05-05] MEDS: oxyCODONE-APAP 5-325MG 1 EACH TAB PO PRN ×4 (05:39→20:02)
[2021-05-05 07:44] LABS: Glucose,Whole Blood 84 mg/dL (75-99)
[2021-05-05 07:50] LABS: ALT 78 U/L (4-34); AST 133 U/L (14-36); African American GFR (CKD) 43 (>60 ml/min/1.73 sqM); Albumin 3.3 g/dL (3.5-5.0); Albumin/Globulin Ratio 0.9; Alkaline Phosphatase 252 U/L (38-126); Anion Gap 10 mmol/L; Blood Urea Nitrogen 36 mg/dL (7-17); Carbon Dioxide 19 mmol/L (22-30); Chloride 110 mmol/L (98-107); Globulin 3.6 g/dL; Glucose 78 mg/dL (74-99); Non-African American GFR(CKD) 37 (>60 ml/min/1.73 sqM); Potassium 5.1 mmol/L (3.5-5.1); Sodium 139 mmol/L (137-145); Total Bilirubin 0.4 mg/dL (0.2-1.3); Total Protein 6.9 g/dL (6.3-8.2)
[2021-05-05] MEDS: THIAMINE 100 MG TAB PO SCH (08:19)
[2021-05-05] MEDS: LORATADINE 10 MG TAB PO SCH (08:19)
[2021-05-05] MEDS: PANTOPRAZOLE 40 MG TABLET PO SCH ×2 (08:19→16:41)
[2021-05-05] MEDS: FUROSEMIDE 20 MG TAB PO SCH (08:19)
[2021-05-05] MEDS: ENOXAPARIN 40 MG/0.4 ML SYRINGE SQ SCH (08:19)
[2021-05-05] MEDS: ASPIRIN 81 MG PO SCH (08:19)
[2021-05-05] MEDS: buPROPion XL 300 MG TAB.ER.24H PO SCH (08:20)
[2021-05-05] MEDS: hydrOXYzine pamoate 25 MG CAP PO SCH ×3 (08:20→20:03)
[2021-05-05] MEDS: FLUTICASONE 50MCG/SPRAY NASAL 16GM EA NOSTRIL SCH ×2 (08:22→20:04)
[2021-05-05] MEDS: busPIRone HCl 10 MG TAB PO SCH ×2 (08:22→20:03)
[2021-05-05] MEDS: buPROPion XL 150 MG TAB.ER.24H PO SCH (08:22)
[2021-05-05] MEDS: SYMBICORT 160-4.5 MCG INHALER INHALATION SCH ×2 (08:51→20:56)
[2021-05-05] MEDS ORDERED: dexAMETHasone 2 MG TAB PO SCH (09:00)
--- NOTE | 2021-05-05 09:04 | US ---
EXAMINATION TYPE: US venous doppler duplex LE DATE OF EXAM: 05/05/2021 8:49 AM COMPARISON: US 2021 CLINICAL HISTORY: elevated D Dimer. Exam done portable SIDE PERFORMED: Bilateral TECHNIQUE: The lower extremity deep venous system is examined utilizing real time linear array sonog jaguar with graded compression, doppler sonography and color-flow sonography. VESSELS IMAGED: Common Femoral Vein Deep Femoral Vein Greater Saphenous Vein * Femoral Vein Popliteal Vein Small Saphenous Vein * Proximal Calf Veins (* superficial vessels) Right Leg: Appears negative for DVT Left Leg: Appears negative for DVT IMPRESSION: The deep venous systems of both lower extremities are patent and compressible with augmen table flow throughout and there is no evidence of DVT.
[2021-05-05] MEDS: FERROUS SULFATE 325 MG TAB PO SCH (10:30)
[2021-05-05] MEDS: POTASSIUM CHLORIDE ER 10 MEQ TAB.ER.PRT PO SCH (10:31)
[2021-05-05] MEDS: SODIUM CHLORIDE 0.9% 1,000 ML IV SCH (10:34)
--- NOTE | 2021-05-05 10:58 | P.HPNEP ---
History of Present Illness H&P Date: 05/05/21 Chief Complaint: Dyspnea This is a 76-year-old female patient who presented to ER with complaints of dyspnea and chest discomfort. Patient was recently admitted and treated for COVID-19. She has extensive medical history including asthma, COPD, respiratory disorder, thyroid disorder, immunoglobulin disorder, chronic TPN infusion, anxiety depression and opiod use. Patient's d-dimer elevated upon arrival 6.13. VQ scan was completed showing low probability for embolus no perfusion mismatch defects. Bilateral venous Doppler completed showing negative for DVT. Acute abdomen series completed showing nonspecific abdomen without evidence of obstruction or free intraperitoneal air scattered bilateral lung infiltrates suspicious for acute pneumonia postsurgical changes. Patient will be started on IV antibiotic Rocephin and azithromycin. Pulmonary services have been consulted. Home meds have been resumed. Repeat labs ordered. At this time patient is resting comfortably in bed on room air. Patient asking for pain medication. Patient denies nausea vomiting or diarrhea. 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 History of Any Multi-Drug Resistant Organisms: None Reported Past Surgical History: Back Surgery, Bowel Resection, Hysterectomy, Joint Replacement Additional Past Surgical History / Comment(s): LOWER BACK SURGERY lamenectomy/discetomy then had a revison of that sx. 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 She states she has a medical legal guardian, Rosario Oneal. She uses a walker to ambulate. She no longer drives, her digester operator Jonn Parnell drives her. She has [facility]. She recieves TPN Smoking Status: Never smoker Past Alcohol Use History: None Reported Past Drug Use History: None Reported - Past Family History Father Family Medical History: Cancer, Coronary Artery Disease (CAD) Additional Family Medical History / Comment(s): FATHER HAD BLADDER AND KIDNEY CANCER. FATHER HAD TB WHEN HE WAS A CHILD .FATHER AT AGE 87. Mother Family Medical History: Cancer Additional Family Medical History / Comment(s): MOTHER AT AGE 58 OF OVARIAN CANCER. Medications and Allergies Home Medications Medication Instructions Recorded Confirmed Type Ferrous Sulfate [Iron (65 MG 325 mg PO DAILY@1200 11/06/15 05/04/21 History Elemental)] Levothyroxine Sodium [Synthroid] 88 mcg PO DAILY 06/07/19 05/04/21 History calcitrioL [Calcitriol] 1 mcg PO MOWEFR 06/07/19 05/04/21 History busPIRone HCL [Buspar] 30 mg PO BID 04/14/20 05/04/21 History Potassium Chloride ER [K-Dur 10] 30 meq PO DAILY@1200 04/18/20 05/04/21 History hydrOXYzine pamoate [hydrOXYzine 25 mg PO TID 04/18/20 05/04/21 History PAMOATE] Pantoprazole Sodium [Protonix] 40 mg PO BID 30 Days #60 tablet. 04/27/20 05/04/21 Rx Butalb/APAP/Caff 50-325-40Mg 1 tab PO BID PRN 06/30/20 05/04/21 History [Fioricet 50-325-40] buPROPion XL [Wellbutrin XL] 150 mg PO DAILY 11/04/20 05/04/21 History Furosemide [Lasix] 20 mg PO DAILY #6 tab 12/13/20 05/04/21 Rx HYDROcodone/APAP 10-325MG [[place] 1 tab PO BID PRN 12/13/20 05/04/21 History 10-325] fentaNYL 75MCG/HR PATCH [Duragesic 1 patch TRANSDERM Q72H 3 Days #3 12/13/20 05/04/21 Rx 75MCG/HR] patch Tpn 1 dose IV DAILY@1900 02/20/21 05/04/21 History buPROPion XL [Wellbutrin XL] 300 mg PO DAILY 02/20/21 05/04/21 History Albuterol Sulfate [Albuterol 2 puff INHALATION RT-Q6H PRN 04/07/21 05/04/21 History Sulfate Hfa] Budesonide/Formoterol Fumarate 2 puff INHALATION RT-BID 04/07/21 05/04/21 History [Symbicort 160-4.5 Mcg Inhaler] Fluticasone Nasal [place] [Flonase 2 spray EA NOSTRIL BID 04/07/21 05/04/21 History Nasal [place]] Loratadine [Claritin] 10 mg PO DAILY 04/07/21 05/04/21 History Mirtazapine [Remeron] 45 mg PO HS 04/07/21 05/04/21 History Aspirin 81 mg PO DAILY tab 04/27/21 05/04/21 Rx Benzonatate [Tessalon Perles] 100 mg PO TID PRN 05/04/21 05/04/21 History Dexamethasone 6 mg PO DAILY 05/04/21 05/04/21 History SUMAtriptan succinate [Imitrex] 50 mg PO BID PRN 05/04/21 05/04/21 History Thiamine [Vitamin B-1] 100 mg PO DAILY 05/04/21 05/04/21 History Allergies Allergy/AdvReac Type Severity Reaction Status Date / Time denosumab [From Prolia] Allergy SEVERE Verified 05/04/21 15:52 CALCIUM LOSS morphine AdvReac Confusion Verified 05/04/21 15:52 DUST Allergy Itching Uncoded 04/21/21 10:25 MOLDS Allergy Itching Uncoded 04/21/21 10:25 Exam Vital Signs Temp Pulse Pulse Pulse Resp BP BP 05/05/21 07:00 98.1 F 72 18 145/68 05/05/21 01:53 97.5 F L 85 17 126/72 05/04/21 19:30 98.7 F 97 16 144/76 05/04/21 18:33 98.6 F 84 16 125/77 05/04/21 13:32 98.1 F 120 H 118 H 16 162/94 Pulse Ox 05/05/21 07:00 97 05/05/21 01:53 100 05/04/21 19:30 97 05/04/21 18:33 99 05/04/21 13:32 99 Intake and Output 05/04/21 05/05/2122 22:59 06:59 14:59 Other: Voiding Method Bedside Commode # Voids 1 2 Weight 40.823 kg Head normocephalic Neck supple Lungs clear to auscultation bilaterally no wheezing or crackles Heart regular rate and rhythm S1-S2, no rub or gallop Abdomen is soft nontender nondistended positive bowel sounds no hepatosplenomegaly Extremities no edema Neuro alert and orientated to 3 Results - Lab Results Most recent lab results Calcium 9.0 mg/dL (8.4-10.2) 05/05/21 06:47 Magnesium 2.0 mg/dL (1.6-2.3) 05/04/21 13:14 05/04/21 13:14 05/05/21 06:47 Assessment and Plan Assessment: 1. Dyspnea secondary to pneumonia. 2. Recent positive COVID-19 infection. COVID-19 repeat negative 3. Elevated d-dimer. VQ scan showing low probability for PE venous Doppler negative bilaterally 4. History of recurrent aspiration pneumonia maintained on TPN 5. Elevated liver enzymes. We'll continue to monitor 6. History of hypothyroidism 7. History of immunoglobulin disorder 8. History of degenerative osteoarthritis 9. History of pancreatitis 10. History of chronic back pain with history of laminectomy 11. History of bowel obstruction 12. History of anxiety and depression 13. History of severe protein calorie malnutrition DVT prophylaxis Lovenox. GI prophylaxis Protonix Pulmonary service is consulted Patient started on IV antibiotics Blood and sputum cultures ordered Repeat labs ordered Time with Patient: Greater than 30 (Greater than 60% of the total time spent in counseling and coordination of care)
[2021-05-05 11:57] LABS: Basophils # (A) 0.06 X 10*3/uL (0.00-0.10); Basophils % (A) 0.5 %; Eosinophils % (A) 1.7 %; HCT 28.6 % (37.2-46.3); Lymphocytes # (A) 2.21 X 10*3/uL (0.90-5.00); Lymphocytes % (A) 19.1 %; MCH 25.4 pg (27.0-32.0); MCV 90.8 fL (80.0-97.0); Mean Platelet Volume 9.5 fL (9.5-12.2); Monocytes % (A) 8.7 %; Neutrophils # (A) 8.05 X 10*3/uL (1.80-7.70); Neutrophils % (A) 69.7 %; Platelet Count 428 X 10*3/uL (140-440); RBC 3.15 X 10*6/uL (4.10-5.20); RDW 21.4 % (11.5-14.5); WBC 11.56 X 10*3/uL (4.50-10.00)
[2021-05-05 12:34] LABS: Glucose,Whole Blood 123 mg/dL (75-99)
--- NOTE | 2021-05-05 14:08 | P.CNPUL ---
History of Present Illness Consult date: 05/05/21 Reason for consult: chest pain History of present illness: I was asked to leave this patient because of ongoing chest pain. The patient has chronic pain across her skeletal system including the chest and upper abdomen. She has been taking a combination of Percocet and fentanyl patch on outpatient basis. She comes into the emergency for the same complaints and she gets admitted to the hospital. Noted the patient was recently hospitalized for covid 19 related pneumonia/infection and she was discharged home on a 10 day course of Decadron. I reviewed the chest x-ray from the current admission, and a baseline abnormalities seen on the chest x-ray are essentially unchanged. Doppler of the lower oximetry has been negative. VQ scan is of a low probability. Flat time of the abdomen and acute abdominal series showed scattered bilateral pulmonary infiltrates, present on previous chest x-rays, chronic, related to previous pneumonias. No other acute abnormalities have been noted. The patient is currently on room air oxygen. She is calm and comfortable. Denies aspiration. Her white cell count is at 11 with a hemoglobin of 8, BUN is at 36 with a creatinine of 1.3 and the sodium level is at 138. Chronic elevation of the LFTs related to TPN use. The Proteus to her level is at 0.14 and the repeat Covid 19 testing came back negative. Review of Systems Constitutional: Denies chills, Denies fever Eyes: denies blurred vision, denies pain Ears, nose, mouth and throat: Denies headache, Denies sore throat Cardiovascular: Denies chest pain, Denies shortness of breath Respiratory: Reports pain on inspiration, Reports respiratory infections, Denies cough, along with a component of skeletal chest wall pain. Gastrointestinal: Denies abdominal pain, Denies diarrhea, Denies nausea, Denies vomiting Genitourinary: Denies dysuria, Denies hematuria Musculoskeletal: Denies myalgias Integumentary: Denies pruritus, Denies rash Neurological: Denies numbness, Denies weakness Psychiatric: Denies anxiety, Denies depression Endocrine: Denies fatigue, Denies weight change Past Medical History Past Medical History: Asthma, COPD, GERD/Reflux, Memory Impairment, Respiratory Disorder, Thyroid Disorder Additional Past Medical History / Comment(s): 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 History of Any Multi-Drug Resistant Organisms: None Reported Past Surgical History: Back Surgery, Bowel Resection, Hysterectomy, Joint Replacement Additional Past Surgical History / Comment(s): LOWER BACK SURGERY lamenectomy/discetomy then had a revison of that sx. 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 She states she has a medical legal guardian, Rosario Oneal. She uses a walker to ambulate. She no longer drives, her lif[employer] representatives Jonn Parnell drives her. She has [facility] home care. She recieves TPN Smoking Status: Never smoker Past Alcohol Use History: None Reported Past Drug Use History: None Reported - Past Family History Father Family Medical History: Cancer, Coronary Artery Disease (CAD) Additional Family Medical History / Comment(s): FATHER HAD BLADDER AND KIDNEY CANCER. FATHER HAD TB WHEN HE WAS A CHILD .FATHER AT AGE 87. Mother Family Medical History: Cancer Additional Family Medical History / Comment(s): MOTHER AT AGE 58 OF OVARIAN CANCER. Medications and Allergies Home Medications Medication Instructions Recorded Confirmed Type Ferrous Sulfate [Iron (65 MG 325 mg PO DAILY@1200 11/06/15 05/04/21 History Elemental)] Levothyroxine Sodium [Synthroid] 88 mcg PO DAILY 06/07/19 05/04/21 History calcitrioL [Calcitriol] 1 mcg PO MOWEFR 06/07/19 05/04/21 History busPIRone HCL [Buspar] 30 mg PO BID 04/14/20 05/04/21 History Potassium Chloride ER [K-Dur 10] 30 meq PO DAILY@1200 04/18/20 05/04/21 History hydrOXYzine pamoate [hydrOXYzine 25 mg PO TID 04/18/20 05/04/21 History PAMOATE] Pantoprazole Sodium [Protonix] 40 mg PO BID 30 Days #60 tablet. 04/27/20 05/04/21 Rx Butalb/APAP/Caff 50-325-40Mg 1 tab PO BID PRN 06/30/20 05/04/21 History [Fioricet 50-325-40] buPROPion XL [Wellbutrin XL] 150 mg PO DAILY 11/04/20 05/04/21 History Furosemide [Lasix] 20 mg PO DAILY #6 tab 12/13/20 05/04/21 Rx HYDROcodone/APAP 10-325MG [[place] 1 tab PO BID PRN 12/13/20 05/04/21 History 10-325] fentaNYL 75MCG/HR PATCH [Duragesic 1 patch TRANSDERM Q72H 3 Days #3 12/13/20 05/04/21 Rx 75MCG/HR] patch Tpn 1 dose IV DAILY@1900 02/20/21 05/04/21 History buPROPion XL [Wellbutrin XL] 300 mg PO DAILY 02/20/21 05/04/21 History Albuterol Sulfate [Albuterol 2 puff INHALATION RT-Q6H PRN 04/07/21 05/04/21 History Sulfate Hfa] Budesonide/Formoterol Fumarate 2 puff INHALATION RT-BID 04/07/21 05/04/21 History [Symbicort 160-4.5 Mcg Inhaler] Fluticasone Nasal [place] [Flonase 2 spray EA NOSTRIL BID 04/07/21 05/04/21 History Nasal [place]] Loratadine [Claritin] 10 mg PO DAILY 04/07/21 05/04/21 History Mirtazapine [Remeron] 45 mg PO HS 04/07/21 05/04/21 History Aspirin 81 mg PO DAILY tab 04/27/21 05/04/21 Rx Benzonatate [Tessalon Perles] 100 mg PO TID PRN 05/04/21 05/04/21 History Dexamethasone 6 mg PO DAILY 05/04/21 05/04/21 History SUMAtriptan succinate [Imitrex] 50 mg PO BID PRN 05/04/21 05/04/21 History Thiamine [Vitamin B-1] 100 mg PO DAILY 05/04/21 05/04/21 History Allergies Allergy/AdvReac Type Severity Reaction Status Date / Time denosumab [From Prolia] Allergy SEVERE Verified 05/04/21 15:52 CALCIUM LOSS morphine AdvReac Confusion Verified 05/04/21 15:52 DUST Allergy Itching Uncoded 04/21/21 10:25 MOLDS Allergy Itching Uncoded 04/21/21 10:25 Physical Exam Vitals: Vital Signs Temp Pulse Pulse Resp BP BP Pulse Ox 05/05/21 08:00 72 18 05/05/21 07:00 98.1 F 72 18 145/68 97 05/05/21 01:53 97.5 F L 85 17 126/72 100 05/04/21 19:30 98.7 F 97 16 144/76 97 05/04/21 18:33 98.6 F 84 16 125/77 99 Intake and Output 05/04/21 05/05/21 05/05/21 22:59 06:59 14:59 Intake Total 200 Balance 200 Intake: Oral 200 Other: Voiding Method Bedside Commode Bedside Commode # Voids 1 2 Weight 40.823 kg GENERAL EXAM: Alert, very pleasant 75-year-old female patient, frail, on room air, comfortable in no apparent distress. HEAD: Normocephalic. EYES: Normal reaction of pupils, equal size. NOSE: Clear with pink turbinates. THROAT: No erythema or exudates. NECK: No masses, no JVD. CHEST: No chest wall deformity. Right subclavian Mediport in place. LUNGS: Equal air entry with bilateral scattered rhonchi more so on the left. CVS: S1 and S2 normal with no audible murmur, regular rhythm. ABDOMEN: No hepatosplenomegaly, normal bowel sounds, no guarding or rigidity. SPINE: No scoliosis or deformity SKIN: No rashes CENTRAL NERVOUS SYSTEM: No focal deficits, tone is normal in all 4 extremities. EXTREMITIES: There is no peripheral edema. No clubbing, no cyanosis. Peripheral pulses are intact. Results - Laboratory Findings CBC and BMP: 05/05/21 06:47 05/05/21 06:47 PT/INR, D-dimer PT 9.6 sec (9.0-12.0) 05/04/21 13:14 INR 0.9 (<1.2) 05/04/21 13:14 D-Dimer 6.13 mg/L FEU (<0.60) H 05/04/21 13:14 Abnormal lab findings: Abnormal Labs 05/04/21 05/04/21 05/04/21 13:14 13:14 13:14 WBC 15.2 H RBC 3.72 L Hgb 9.5 L D Hct 32.7 L MCH MCHC 29.0 L RDW 21.1 H Plt Count 656 H Neutrophils # 12.7 H APTT 18.6 L D-Dimer 6.13 H Chloride Carbon Dioxide BUN 42 H Creatinine 1.37 H Glucose 111 H POC Glucose (mg/dL) Plasma Lactic Acid Jonah AST 50 H ALT 43 H Alkaline Phosphatase 268 H Albumin Lipase 382 H Procalcitonin 05/04/21 05/04/21 05/05/21 13:14 15:49 06:47 WBC 11.56 H RBC 3.15 L Hgb 8.0 L Hct 28.6 L MCH 25.4 L MCHC 28.0 L RDW 21.4 H Plt Count Neutrophils # 8.05 H APTT D-Dimer Chloride Carbon Dioxide BUN Creatinine Glucose POC Glucose (mg/dL) Plasma Lactic Acid Jonah 2.1 H* 2.1 H* AST ALT Alkaline Phosphatase Albumin Lipase Procalcitonin 05/05/21 05/05/21 05/05/21 06:47 06:47 12:32 WBC RBC Hgb Hct MCH MCHC RDW Plt Count Neutrophils # APTT D-Dimer Chloride 110 H Carbon Dioxide 19 L BUN 36 H Creatinine 1.39 H Glucose POC Glucose (mg/dL) 123 H Plasma Lactic Acid Jonah AST 133 H ALT 78 H Alkaline Phosphatase 252 H Albumin 3.3 L Lipase Procalcitonin 0.14 H - Diagnostic Findings Chest x-ray: image reviewed CT scan - chest: image reviewed U/S of Legs: image reviewed PFT's: image reviewed Assessment and Plan Plan: 1 chronic skeletal chest wall pain, maintained on a combination of Percocet and fentanyl patches on outpatient basis. No clear explanation for her ongoing chest wall pain. The workup that was done including chest x-ray, VQ scan showed no acute abnormalities. The consolidation of the lungs are chronic and related to previous infections. No signs of any superinfection at this point in time. 2 history of chronic dysphagia with multiple episodes of aspiration 3 history of gastric ulcer status post previous gastrectomy 4 history of TPN infusion for nutritional support 5 history of chronic kidney disease stage III 6 history of systemic systemic candidemia secondary to Lesly parapsilosis possible source related to MediPort which was removed today on 03/16/2021, and the patient continues to have a PICC line. The patient completed antifungal an outpatient basis 7 chronic pain syndrome 8 chronic anxiety/depression Plan Continue painkillers Adjustment of the pain medication per medicine Continue anticoagulation with Lovenox for DVT prophylaxis 40 mg subcu Continue TPN for nutritional support Workup that was noted Pulmonary critical care will sign off the case.
[2021-05-05 17:22] LABS: Glucose,Whole Blood 106 mg/dL (75-99)
[2021-05-05] MEDS: SUMAtriptan succinate 50 MG TAB PO PRN (17:30)
[2021-05-05] MEDS: BENZONATATE 100 MG CAP PO PRN (17:31)
[2021-05-05] MEDS: AZITHROMYCIN 500 MG in SODIUM CHLORIDE 0.9% 250 ML IVPB SCH (17:42)
[2021-05-05] MEDS ORDERED: TPN IV SCH (19:00)
--- NOTE | 2021-05-05 22:47 | P.CONS ---
History of Present Illness - Reason for Consult Consult date: 05/05/21 pneumonia Requesting physician: Palmer Desir - Chief Complaint abd and lower ribcage chest pain x 2-3 days - History of Present Illness History of present illness : Patient is 76-year female with a past medical history significant for recent diagnosis of COVID-19 infection for the patient was evaluated and treated this visit and subsequently stabilized and discharged home patient now presenting back to the hospital for evaluation of abdominal and lower chest pain patient was given pain to be sharp at times dull aching apparently the patient did drain out of his pain medication patient on presented to the hospital was afebrile and the fever has been recorded subsequently patient did have vitamin 15.2 with a left shift D-dimer was elevated patient did have mildly elevated procalcitonin 0.14: The PCR was negative patient did have a VQ scan low probability for PE patient also have a lower extremity Doppler they have been negative for DVT patient was started on Rocephin and Zithromax infectious disease was consulted for further management of antibiotic therapy Review of system: CONSTITUTIONAL: Positive for weakness denies high-grade fever. EYES: No complaint. ENT: No complaint. RESPIRATORY: As per history of present illness. CARDIOVASCULAR: No complaint. GENITOURINARY: No complaint. GASTROINTESTINAL: As per history of present illness. MUSCULOSKELETAL: No complaint. INTEGUMENTARY: No complaint. PSYCHOLOGIC: No complaint. ENDOCRINE: No complaint. NEUROLOGIC: No complaint. Past medical history : Reviewed, documented below Past surgical history : Reviewed, documented below Social history: Reviewed, documented below Medications: Reviewed, as documented below EXAMINATION: Vital sigans= Reviewed and documented below GENERAL DESCRIPTION: Elderly female lying in bed, no distress. No tachypnea or accessory muscle of respiration use. HEENT: Shows Pallor , no scleral icterus. Oral mucous membrane is dry. NECK: Trachea central, no thyromegaly. LUNGS: Unlabored breathing. Decreased intensity of breath sounds. No wheeze or crackle. HEART: S1, S2, regular rate and rhythm. ABDOMEN: Soft, no tenderness , guarding or rigidity EXTREMITIES: No edema of feet. SKIN: No rash, no masses palpable. NEUROLOGICAL: The patient is awake, alert, oriented x3, mood and affect normal. LABS AND RADIOLOGY: Reviewed results see below Assessment : Patient presented to the hospital predominantly with bilateral lower rib cage and abdominal pain in this patient did have a mild cough she did have elevated white count and concern for possible pneumonia however procalcitonin was significantly elevated and the patient did not have any fever she was recently discharged home on dexamethasone for her recent COVID-19 infection and may be responsible for the elevated white count seen on admission, patient did have a VQ scan that was low probability for PE Plan: 1-we will try to get a sputum for gram stain and culture 2-May continue with Rocephin and Zithromax we will await further work-up to finalize We will follow on clinical condition and cultures to further adjust medication if needed Thank you for this consultation we will follow the patient along with you Past Medical History Past Medical History: Asthma, COPD, GERD/Reflux, Memory Impairment, Respiratory Disorder, Thyroid Disorder Additional Past Medical History / Comment(s): 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 History of Any Multi-Drug Resistant Organisms: None Reported Past Surgical History: Back Surgery, Bowel Resection, Hysterectomy, Joint Replacement Additional Past Surgical History / Comment(s): LOWER BACK SURGERY garcia enectomy/discetomy then had a revison of that sx. 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 She states she has a medical legal guardian, Rosario Oneal. She uses a walker to ambulate. She no longer drives, her knuckle strap sewer Jonn Parnell drives her. She has [facility] home care. She recieves TPN Smoking Status: Never smoker Past Alcohol Use History: None Reported Past Drug Use History: None Reported - Past Family History Father Family Medical History: Cancer, Coronary Artery Disease (CAD) Additional Family Medical History / Comment(s): FATHER HAD BLADDER AND KIDNEY CANCER. FATHER HAD TB WHEN HE WAS A CHILD .FATHER AT AGE 87. Mother Family Medical History: Cancer Additional Family Medical History / Comment(s): MOTHER AT AGE 58 OF OVARIAN CANCER. Medications and Allergies Home Medications Medication Instructions Recorded Confirmed Type Ferrous Sulfate [Iron (65 MG 325 mg PO DAILY@1200 11/06/15 05/04/21 History Elemental)] Levothyroxine Sodium [Synthroid] 88 mcg PO DAILY 06/07/19 05/04/21 History calcitrioL [Calcitriol] 1 mcg PO MOWEFR 06/07/19 05/04/21 History busPIRone HCL [Buspar] 30 mg PO BID 04/14/20 05/04/21 History Potassium Chloride ER [K-Dur 10] 30 meq PO DAILY@1200 04/18/20 05/04/21 History hydrOXYzine pamoate [hydrOXYzine 25 mg PO TID 04/18/20 05/04/21 History PAMOATE] Pantoprazole Sodium [Protonix] 40 mg PO BID 30 Days #60 tablet. 04/27/20 05/04/21 Rx Butalb/APAP/Caff 50-325-40Mg 1 tab PO BID PRN 06/30/20 05/04/21 History [Fioricet 50-325-40] buPROPion XL [Wellbutrin XL] 150 mg PO DAILY 11/04/20 05/04/21 History Furosemide [Lasix] 20 mg PO DAILY #6 tab 12/13/20 05/04/21 Rx HYDROcodone/APAP 10-325MG [[place] 1 tab PO BID PRN 12/13/20 05/04/21 History 10-325] fentaNYL 75MCG/HR PATCH [Duragesic 1 patch TRANSDERM Q72H 3 Days #3 12/13/20 05/04/21 Rx 75MCG/HR] patch Tpn 1 dose IV DAILY@1900 02/20/21 05/04/21 History buPROPion XL [Wellbutrin XL] 300 mg PO DAILY 02/20/21 05/04/21 History Albuterol Sulfate [Albuterol 2 puff INHALATION RT-Q6H PRN 04/07/21 05/04/21 History Sulfate Hfa] Budesonide/Formoterol Fumarate 2 puff INHALATION RT-BID 04/07/21 05/04/21 History [Symbicort 160-4.5 Mcg Inhaler] Fluticasone Nasal [place] [Flonase 2 spray EA NOSTRIL BID 04/07/21 05/04/21 History Nasal [place]] Loratadine [Claritin] 10 mg PO DAILY 04/07/21 05/04/21 History Mirtazapine [Remeron] 45 mg PO HS 04/07/21 05/04/21 History Aspirin 81 mg PO DAILY tab 04/27/21 05/04/21 Rx Benzonatate [Tessalon Perles] 100 mg PO TID PRN 05/04/21 05/04/21 History Dexamethasone 6 mg PO DAILY 05/04/21 05/04/21 History SUMAtriptan succinate [Imitrex] 50 mg PO BID PRN 05/04/21 05/04/21 History Thiamine [Vitamin B-1] 100 mg PO DAILY 05/04/21 05/04/21 History Allergies Allergy/AdvReac Type Severity Reaction Status Date / Time denosumab [From Prolia] Allergy SEVERE Verified 05/04/21 15:52 CALCIUM LOSS morphine AdvReac Confusion Verified 05/04/21 15:52 DUST Allergy Itching Uncoded 04/21/21 10:25 MOLDS Allergy Itching Uncoded 04/21/21 10:25 Physical Exam Vitals: Vital Signs Temp Pulse Pulse Resp BP BP Pulse Ox 05/05/21 08:00 72 18 05/05/21 07:00 98.1 F 72 18 145/68 97 05/05/21 01:53 97.5 F L 85 17 126/72 100 05/04/21 19:30 98.7 F 97 16 144/76 97 05/04/21 18:33 98.6 F 84 16 125/77 99 Intake and Output 05/04/21 05/05/21 05/05/21 22:59 06:59 14:59 Intake Total 200 Balance 200 Intake: Oral 200 Other: Voiding Method Bedside Commode Bedside Commode # Voids 1 2 Weight 40.823 kg Results CBC & Chem 7: 05/05/21 06:47 05/05/21 06:47 Labs: Abnormal Lab Results - Last 24 Hours (Table) 05/04/21 05/04/21 05/04/21 Range/Units 13:14 13:14 13:14 WBC 15.2 H (3.8-10.6) k/uL RBC 3.72 L (3.80-5.40) m/uL Hgb 9.5 L D (11.4-16.0) gm/dL Hct 32.7 L (34.0-46.0) % MCH (27.0-32.0) pg MCHC 29.0 L (31.0-37.0) g/dL RDW 21.1 H (11.5-15.5) % Plt Count 656 H (150-450) k/uL Neutrophils # 12.7 H (1.3-7.7) k/uL APTT 18.6 L (22.0-30.0) sec D-Dimer 6.13 H (<0.60) mg/L FEU Chloride (98-107) mmol/L Carbon Dioxide (22-30) mmol/L BUN (7-17) mg/dL Creatinine (0.52-1.04) mg/dL POC Glucose (mg/dL) (75-99) mg/dL Plasma Lactic Acid Jonah 2.1 H* (0.7-2.0) mmol/L AST (14-36) U/L ALT (4-34) U/L Alkaline Phosphatase (38-126) U/L Albumin (3.5-5.0) g/dL Procalcitonin (0.02-0.09) ng/mL 05/04/21 05/05/21 05/05/21 Range/Units 15:49 06:47 06:47 WBC 11.56 H (3.8-10.6) k/uL RBC 3.15 L (3.80-5.40) m/uL Hgb 8.0 L (11.4-16.0) gm/dL Hct 28.6 L (34.0-46.0) % MCH 25.4 L (27.0-32.0) pg MCHC 28.0 L (31.0-37.0) g/dL RDW 21.4 H (11.5-15.5) % Plt Count (150-450) k/uL Neutrophils # 8.05 H (1.3-7.7) k/uL APTT (22.0-30.0) sec D-Dimer (<0.60) mg/L FEU Chloride 110 H (98-107) mmol/L Carbon Dioxide 19 L (22-30) mmol/L BUN 36 H (7-17) mg/dL Creatinine 1.39 H (0.52-1.04) mg/dL POC Glucose (mg/dL) (75-99) mg/dL Plasma Lactic Acid Jonah 2.1 H* (0.7-2.0) mmol/L AST 133 H (14-36) U/L ALT 78 H (4-34) U/L Alkaline Phosphatase 252 H (38-126) U/L Albumin 3.3 L (3.5-5.0) g/dL Procalcitonin (0.02-0.09) ng/mL 05/05/21 05/05/21 Range/Units 06:47 12:32 WBC (3.8-10.6) k/uL RBC (3.80-5.40) m/uL Hgb (11.4-16.0) gm/dL Hct (34.0-46.0) % MCH (27.0-32.0) pg MCHC (31.0-37.0) g/dL RDW (11.5-15.5) % Plt Count (150-450) k/uL Neutrophils # (1.3-7.7) k/uL APTT (22.0-30.0) sec D-Dimer (<0.60) mg/L FEU Chloride (98-107) mmol/L Carbon Dioxide (22-30) mmol/L BUN (7-17) mg/dL Creatinine (0.52-1.04) mg/dL POC Glucose (mg/dL) 123 H (75-99) mg/dL Plasma Lactic Acid Jonah (0.7-2.0) mmol/L AST (14-36) U/L ALT (4-34) U/L Alkaline Phosphatase (38-126) U/L Albumin (3.5-5.0) g/dL Procalcitonin 0.14 H (0.02-0.09) ng/mL
[2021-05-06] MEDS: oxyCODONE-APAP 5-325MG 1 EACH TAB PO PRN ×5 (00:14→20:11)
[2021-05-06 00:19] LABS: Glucose,Whole Blood 85 mg/dL (75-99)
[2021-05-06] MEDS: LEVOTHYROXINE 88 MCG TAB PO SCH (05:45)
[2021-05-06 07:30] LABS: Glucose,Whole Blood 124 mg/dL (75-99)
[2021-05-06] MEDS: busPIRone HCl 10 MG TAB PO SCH ×2 (07:41→20:11)
[2021-05-06] MEDS: ENOXAPARIN 40 MG/0.4 ML SYRINGE SQ SCH (07:41)
[2021-05-06] MEDS: FUROSEMIDE 20 MG TAB PO SCH (07:41)
[2021-05-06] MEDS: FERROUS SULFATE 325 MG TAB PO SCH (07:42)
[2021-05-06] MEDS: FLUTICASONE 50MCG/SPRAY NASAL 16GM EA NOSTRIL SCH ×2 (07:42→20:13)
[2021-05-06] MEDS: hydrOXYzine pamoate 25 MG CAP PO SCH ×3 (07:42→20:10)
[2021-05-06] MEDS: LORATADINE 10 MG TAB PO SCH (07:42)
[2021-05-06] MEDS: THIAMINE 100 MG TAB PO SCH (07:42)
[2021-05-06] MEDS: buPROPion XL 150 MG TAB.ER.24H PO SCH (07:43)
[2021-05-06] MEDS: ASPIRIN 81 MG PO SCH (07:43)
[2021-05-06] MEDS: PANTOPRAZOLE 40 MG TABLET PO SCH ×2 (07:43→17:20)
[2021-05-06] MEDS: buPROPion XL 300 MG TAB.ER.24H PO SCH (07:43)
[2021-05-06] MEDS: BUTALB/APAP/CAFF 50-325-40MG TAB PO PRN (07:47)
[2021-05-06] MEDS: SYMBICORT 160-4.5 MCG INHALER INHALATION SCH ×2 (08:44→20:27)
--- NOTE | 2021-05-06 10:20 | P.HPIM ---
History of Present Illness H&P Date: 05/05/21 Louise dennis, is a 76-year-old female patient who presented to ER with complaints of dyspnea and chest discomfort. Patient was recently admitted and treated for COVID-19. She has extensive medical history including asthma, COPD, respiratory disorder, thyroid disorder, immunoglobulin disorder, chronic TPN infusion, anxiety depression and opiod use. Patient's d-dimer elevated upon arrival 6.13. VQ scan was completed showing low probability for embolus no perfusion mismatch defects. Bilateral venous Doppler completed showing negative for DVT. Acute abdomen series completed showing nonspecific abdomen without evidence of obstruction or free intraperitoneal air scattered bilateral lung infiltrates suspicious for acute pneumonia postsurgical changes. Patient will be started on IV antibiotic Rocephin and azithromycin. Pulmonary services have been consulted. Home meds have been resumed. Repeat labs ordered. At this time patient is resting comfortably in bed on room air. Patient asking for pain medication. Patient denies nausea vomiting or diarrhea. Patient denies any urinary burning or frequency. 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 History of Any Multi-Drug Resistant Organisms: None Reported Past Surgical History: Back Surgery, Bowel Resection, Hysterectomy, Joint Replacement Additional Past Surgical History / Comment(s): LOWER BACK SURGERY lame nectomy/discetomy then had a revison of that sx. 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 She s tates she has a medical legal guardian, Rosario Oneal. She uses a walker to ambulate. She no longer drives, her chute man Jonn Parnell drives her. She has [facility] home care. She recieves TPN Smoking Status: Never smoker Past Alcohol Use History: None Reported Past Drug Use History: None Reported - Past Family History Father Family Medical History: Cancer, Coronary Artery Disease (CAD) Additional Family Medical History / Comment(s): FATHER HAD BLADDER AND KIDNEY CANCER. FATHER HAD TB WHEN HE WAS A CHILD .FATHER AT AGE 87. Mother Family Medical History: Cancer Additional Family Medical History / Comment(s): MOTHER AT AGE 58 OF OVARIAN CANCER. Medications and Allergies Home Medications Medication Instructions Recorded Confirmed Type Ferrous Sulfate [Iron (65 MG 325 mg PO DAILY@1200 11/06/15 05/04/21 History Elemental)] Levothyroxine Sodium [Synthroid] 88 mcg PO DAILY 06/07/19 05/04/21 History calcitrioL [Calcitriol] 1 mcg PO MOWEFR 06/07/19 05/04/21 History busPIRone HCL [Buspar] 30 mg PO BID 04/14/20 05/04/21 History Potassium Chloride ER [K-Dur 10] 30 meq PO DAILY@1200 04/18/20 05/04/21 History hydrOXYzine pamoate [hydrOXYzine 25 mg PO TID 04/18/20 05/04/21 History PAMOATE] Pantoprazole Sodium [Protonix] 40 mg PO BID 30 Days #60 tablet. 04/27/20 05/04/21 Rx Butalb/APAP/Caff 50-325-40Mg 1 tab PO BID PRN 06/30/20 05/04/21 History [Fioricet 50-325-40] buPROPion XL [Wellbutrin XL] 150 mg PO DAILY 11/04/20 05/04/21 History Furosemide [Lasix] 20 mg PO DAILY #6 tab 12/13/20 05/04/21 Rx HYDROcodone/APAP 10-325MG [[place] 1 tab PO BID PRN 12/13/20 05/04/21 History 10-325] fentaNYL 75MCG/HR PATCH [Duragesic 1 patch TRANSDERM Q72H 3 Days #3 12/13/20 05/04/21 Rx 75MCG/HR] patch Tpn 1 dose IV DAILY@1900 02/20/21 05/04/21 History buPROPion XL [Wellbutrin XL] 300 mg PO DAILY 02/20/21 05/04/21 History Albuterol Sulfate [Albuterol 2 puff INHALATION RT-Q6H PRN 04/07/21 05/04/21 History Sulfate Hfa] Budesonide/Formoterol Fumarate 2 puff INHALATION RT-BID 04/07/21 05/04/21 History [Symbicort 160-4.5 Mcg Inhaler] Fluticasone Nasal [place] [Flonase 2 spray EA NOSTRIL BID 04/07/21 05/04/21 History Nasal [place]] Loratadine [Claritin] 10 mg PO DAILY 04/07/21 05/04/21 History Mirtazapine [Remeron] 45 mg PO HS 04/07/21 05/04/21 History Aspirin 81 mg PO DAILY tab 04/27/21 05/04/21 Rx Benzonatate [Tessalon Perles] 100 mg PO TID PRN 05/04/21 05/04/21 History Dexamethasone 6 mg PO DAILY 05/04/21 05/04/21 History SUMAtriptan succinate [Imitrex] 50 mg PO BID PRN 05/04/21 05/04/21 History Thiamine [Vitamin B-1] 100 mg PO DAILY 05/04/21 05/04/21 History Allergies Allergy/AdvReac Type Severity Reaction Status Date / Time denosumab [From [employer]] Allergy SEVERE Verified 05/04/21 15:52 CALCIUM LOSS morphine AdvReac Confusion Verified 05/04/21 15:52 DUST Allergy Itching Uncoded 04/21/21 10:25 MOLDS Allergy Itching Uncoded 04/21/21 10:25 Physical Exam Vitals: Vital Signs Temp Pulse Pulse Resp BP BP Pulse Ox 05/05/21 14:37 98.5 F 91 16 141/71 100 05/05/21 14:00 18 05/05/21 08:00 72 18 05/05/21 07:00 98.1 F 72 18 145/68 97 05/05/21 01:53 97.5 F L 85 17 126/72 100 05/04/21 19:30 98.7 F 97 16 144/76 97 05/04/21 18:33 98.6 F 84 16 125/77 99 Intake and Output 05/04/21 05/05/21 05/05/21 22:59 06:59 14:59 Intake Total 200 Balance 200 Intake: Oral 200 Other: Voiding Method Bedside Commode Bedside Commode # Voids 1 2 2 Weight 40.823 kg Head normocephalic Neck supple Lungs clear to auscultation bilaterally no wheezing or crackles Heart regular rate and rhythm S1-S2, no rub or gallop Abdomen is soft nontender nondistended positive bowel sounds no hepatosplenomegaly Extremities no edema Neuro alert and orientated to 3 Results CBC & Chem 7: 05/05/21 06:47 05/05/21 06:47 Labs: Abnormal Lab Results - Last 24 Hours (Table) 05/04/21 05/05/21 05/05/21 Range/Units 15:49 06:47 06:47 WBC 11.56 H (4.50-10.00) X 10*3/uL RBC 3.15 L (4.10-5.20) X 10*6/uL Hgb 8.0 L (12.0-15.0) g/dL Hct 28.6 L (37.2-46.3) % MCH 25.4 L (27.0-32.0) pg MCHC 28.0 L (32.0-37.0) g/dL RDW 21.4 H (11.5-14.5) % Neutrophils # 8.05 H (1.80-7.70) X 10*3/uL Chloride 110 H (98-107) mmol/L Carbon Dioxide 19 L (22-30) mmol/L BUN 36 H (7-17) mg/dL Creatinine 1.39 H (0.52-1.04) mg/dL POC Glucose (mg/dL) (75-99) mg/dL Plasma Lactic Acid Jonah 2.1 H* (0.7-2.0) mmol/L AST 133 H (14-36) U/L ALT 78 H (4-34) U/L Alkaline Phosphatase 252 H (38-126) U/L Albumin 3.3 L (3.5-5.0) g/dL Procalcitonin (0.02-0.09) ng/mL 05/05/21 05/05/21 Range/Units 06:47 12:32 WBC (4.50-10.00) X 10*3/uL RBC (4.10-5.20) X 10*6/uL Hgb (12.0-15.0) g/dL Hct (37.2-46.3) % MCH (27.0-32.0) pg MCHC (32.0-37.0) g/dL RDW (11.5-14.5) % Neutrophils # (1.80-7.70) X 10*3/uL Chloride (98-107) mmol/L Carbon Dioxide (22-30) mmol/L BUN (7-17) mg/dL Creatinine (0.52-1.04) mg/dL POC Glucose (mg/dL) 123 H (75-99) mg/dL Plasma Lactic Acid Jonah (0.7-2.0) mmol/L AST (14-36) U/L ALT (4-34) U/L Alkaline Phosphatase (38-126) U/L Albumin (3.5-5.0) g/dL Procalcitonin 0.14 H (0.02-0.09) ng/mL Thrombosis Risk Factor Assmnt - Choose All That Apply Any of the Below Risk Factors Present?: No Other Risk Factors: No Other congenital or acquired thrombophilia - If yes, enter type in comment: No Thrombosis Risk Factor Assessment Level: Very Low Risk Assessment and Plan Assessment: 1. Dyspnea secondary to pneumonia. 2. Recent positive COVID-19 infection. COVID-19 repeat negative 3. Elevated d-dimer. VQ scan showing low probability for PE venous Doppler negative bilaterally 4. History of recurrent aspiration pneumonia maintained on TPN 5. Elevated liver enzymes. We'll continue to monitor 6. History of hypothyroidism 7. History of immunoglobulin disorder 8. History of degenerative osteoarthritis 9. History of pancreatitis 10. History of chronic back pain with history of laminectomy 11. History of bowel obstruction 12. History of anxiety and depression 13. History of severe protein calorie malnutrition DVT prophylaxis Lovenox. GI prophylaxis Protonix Pulmonary service is consulted Patient started on IV antibiotics Blood and sputum cultures ordered Repeat labs ordered
[2021-05-06 11:12] LABS: ALT 101 U/L (8-44); AST 81 U/L (13-35); African American GFR (CKD) 46.8 (60.0-200.0); Albumin 3.1 g/dL (3.8-4.9); Albumin/Globulin Ratio 1.15 (1.60-3.17); Alkaline Phosphatase 251 U/L (41-126); BUN/Creat Ratio 22.92 Ratio (12.00-20.00); Blood Urea Nitrogen 29.8 mg/dL (9.0-27.0); Calcium 8.6 mg/dL (8.7-10.3); Carbon Dioxide 19.8 mmol/L (20.0-27.5); Chloride 107 mmol/L (96-109); Globulin 2.7 g/dL (1.6-3.3); Glucose 84 mg/dL (70-110); Non-African American GFR(CKD) 40.4 (60.0-200.0); Potassium 4.8 mmol/L (3.5-5.5); Sodium 139 mmol/L (135-145); Total Bilirubin <0.20 mg/dL (0.30-1.20); Total Protein 5.8 g/dL (6.2-8.2)
[2021-05-06 11:34] LABS: Basophils # (A) 0.03 X 10*3/uL (0.00-0.10); Basophils % (A) 0.3 %; Eosinophils # (A) 0.18 X 10*3/uL (0.04-0.35); Eosinophils % (A) 1.8 %; HCT 25.9 % (37.2-46.3); HGB 7.4 g/dL (12.0-15.0); Lymphocytes # (A) 2.19 X 10*3/uL (0.90-5.00); Lymphocytes % (A) 22.1 %; MCH 25.5 pg (27.0-32.0); MCHC 28.6 g/dL (32.0-37.0); MCV 89.3 fL (80.0-97.0); Mean Platelet Volume 9.2 fL (9.5-12.2); Monocytes # (A) 0.69 X 10*3/uL (0.20-1.00); Neutrophils # (A) 6.76 X 10*3/uL (1.80-7.70); Neutrophils % (A) 68.4 %; Platelet Count 441 X 10*3/uL (140-440); RDW 21.3 % (11.5-14.5); WBC 9.89 X 10*3/uL (4.50-10.00)
[2021-05-06 11:40] LABS: ALT 94 U/L (4-34); AST 74 U/L (14-36); African American GFR (CKD) 43 (>60 ml/min/1.73 sqM); Albumin 3.1 g/dL (3.5-5.0); Albumin/Globulin Ratio 0.9; Alkaline Phosphatase 261 U/L (38-126); Anion Gap 5 mmol/L; Blood Urea Nitrogen 31 mg/dL (7-17); Calcium 8.7 mg/dL (8.4-10.2); Carbon Dioxide 23 mmol/L (22-30); Chloride 110 mmol/L (98-107); Globulin 3.4 g/dL; Glucose 87 mg/dL (74-99); Magnesium 1.8 mg/dL (1.6-2.3); Non-African American GFR(CKD) 37 (>60 ml/min/1.73 sqM); Phosphorus 3.1 mg/dL (2.5-4.5); Potassium 4.4 mmol/L (3.5-5.1); Sodium 138 mmol/L (137-145); Total Bilirubin 0.4 mg/dL (0.2-1.3); Total Protein 6.5 g/dL (6.3-8.2)
[2021-05-06 11:43] LABS: Ionized Calcium 5.1 mg/dL (4.5-5.3)
[2021-05-06] MEDS: POTASSIUM CHLORIDE ER 10 MEQ TAB.ER.PRT PO SCH (11:51)
[2021-05-06 12:03] LABS: Glucose,Whole Blood 91 mg/dL (75-99)
[2021-05-06] MEDS ORDERED: FAT EMULSION 20% 500 ML IV SCH (13:00)
[2021-05-06] MEDS ORDERED: MVI, ADULT NO.4 WITH VIT K 10 ML, TRACE (CONC-1ML/DOSE) 1 ML in AMINO ACID 5%-D20W+LYTE... IV SCH ×3 (13:00)
[2021-05-06] MEDS: SUMAtriptan succinate 50 MG TAB PO PRN (13:58)
[2021-05-06 14:15] VITALS: BMI 15.9
--- NOTE | 2021-05-06 16:12 | XR ---
EXAMINATION TYPE: XR chest 1V portable DATE OF EXAM: 05/06/2021 COMPARISON: Chest x-ray 04/25/2021 HISTORY: Cough and chest pain TECHNIQUE: Single frontal view of the chest is obtained. FINDINGS: Bilateral airspace disease shows a similar appearance. Left-sided PICC line is stable. No evident pneumothorax or sizable effusion. Cardiac mediastinal silhouette is stable. There are overlyi ng leads. IMPRESSION: Correlate for pneumonia, findings similar to prior exam, follow-up suggested
[2021-05-06] MEDS: AZITHROMYCIN 500 MG in SODIUM CHLORIDE 0.9% 250 ML IVPB SCH (17:19)
[2021-05-06] MEDS: SODIUM CHLORIDE 0.9% 1,000 ML IV SCH (17:20)
[2021-05-06 17:43] LABS: Glucose,Whole Blood 103 mg/dL (75-99)
[2021-05-06] MEDS: HYDROmorphone 0.5 MG/0.5 ML SYRINGE IVP PRN (18:13)
--- NOTE | 2021-05-06 18:33 | P.PN ---
Subjective Progress Note Date: 05/06/21 Louise dennis, is a 76-year-old female patient who presented to ER with complaints of dyspnea and chest discomfort. Patient was recently admitted and treated for COVID-19. She has extensive medical history including asthma, COPD, respiratory disorder, thyroid disorder, immunoglobulin disorder, chronic TPN infusion, anxiety depression and opiod use. Patient's d-dimer elevated upon arrival 6.13. VQ scan was completed showing low probability for embolus no perfusion mismatch defects. Bilateral venous Doppler completed showing negative for DVT. Acute abdomen series completed showing nonspecific abdomen without evidence of obstruction or free intraperitoneal air scattered bilateral lung infiltrates suspicious for acute pneumonia postsurgical changes. Patient will be started on IV antibiotic Rocephin and azithromycin. Pulmonary services have been consulted. Home meds have been resumed. Repeat labs ordered. At this time patient is resting comfortably in bed on room air. Patient asking for pain medication. Patient denies nausea vomiting or diarrhea. Patient denies any urinary burning or frequency. On 05/06/2021 patient was seen and examined on the medical floor she is alert and oriented 3 in no distress, she is still complaining of chest wall pain and tightness, she is also complaining of cough, otherwise she denies any complaints there is no fever or chills no headache or dizziness no chest pain, there is no fever or chills no headache or dizziness no nausea or vomiting no abdominal pain no diarrhea no blood in the stools no burning with urination no frequency or urgency and no hematuria Objective - Vital Signs Vital signs: Vital Signs Temp 97.8 F 05/06/21 07:00 Pulse 79 05/06/21 08:00 Resp 18 05/06/21 08:00 BP 120/63 05/06/21 07:00 Pulse Ox 98 05/06/21 07:00 Intake & Output 05/05/21 05/06/21 05/06/21 18:59 06:59 18:59 Intake Total 602 300 Balance 602 300 Intake: Oral 602 300 Other: Voiding Method Bedside Commode Bedside Commode Bedside Commode # Voids 2 1 - Exam In general patient is alert and oriented 3 in no apparent distress Head normocephalic and atraumatic Neck supple no JVD no goiter Lungs clear to auscultation bilaterally no wheezing or crackles Heart regular rate and rhythm S1-S2, no rub or gallop Abdomen is soft nontender nondistended positive bowel sounds no hepatosplenomegaly Extremities no edema Neuro no gross focal deficit - Labs CBC & Chem 7: 05/06/21 06:47 05/06/21 11:15 Labs: Abnormal Lab Results - Last 24 Hours (Table) 05/05/21 05/05/21 05/05/21 Range/Units 06:47 06:47 12:32 WBC 11.56 H (4.50-10.00) X 10*3/uL RBC 3.15 L (4.10-5.20) X 10*6/uL Hgb 8.0 L (12.0-15.0) g/dL Hct 28.6 L (37.2-46.3) % MCH 25.4 L (27.0-32.0) pg MCHC 28.0 L (32.0-37.0) g/dL RDW 21.4 H (11.5-14.5) % Neutrophils # 8.05 H (1.80-7.70) X 10*3/uL POC Glucose (mg/dL) 123 H (75-99) mg/dL Procalcitonin 0.14 H (0.02-0.09) ng/mL 05/05/21 05/06/21 Range/Units 17:20 07:28 WBC (4.50-10.00) X 10*3/uL RBC (4.10-5.20) X 10*6/uL Hgb (12.0-15.0) g/dL Hct (37.2-46.3) % MCH (27.0-32.0) pg MCHC (32.0-37.0) g/dL RDW (11.5-14.5) % Neutrophils # (1.80-7.70) X 10*3/uL POC Glucose (mg/dL) 106 H 124 H (75-99) mg/dL Procalcitonin (0.02-0.09) ng/mL Assessment and Plan Assessment: 1. Dyspnea secondary to pneumonia. Chest x-ray reveals bilateral infiltrates, Pro calcitonin level is elevated, patient is maintained on IV Zithromax and Rocephin, infectious disease following 2. Recent positive COVID-19 infection. COVID-19 repeat negative 3. Elevated d-dimer. VQ scan showing low probability for PE venous Doppler negative bilaterally 4. History of recurrent aspiration pneumonia maintained on TPN 5. Elevated liver enzymes. We'll continue to monitor 6. History of hypothyroidism 7. History of immunoglobulin disorder 8. History of degenerative osteoarthritis 9. History of pancreatitis 10. History of chronic back pain with history of laminectomy 11. History of bowel obstruction 12. History of anxiety and depression 13. History of severe protein calorie malnutrition DVT prophylaxis Lovenox. GI prophylaxis Protonix Pulmonary service is consulted Patient started on IV antibiotics Blood and sputum cultures ordered Repeat labs ordered
[2021-05-06] MEDS: MIRTAZAPINE 45 MG TABLET PO SCH (20:12)
[2021-05-06] MEDS: BENZONATATE 100 MG CAP PO PRN (20:13)
[2021-05-06 21:46] LABS: Glucose,Whole Blood 101 mg/dL (75-99)
[2021-05-07] MEDS: oxyCODONE-APAP 5-325MG 1 EACH TAB PO PRN ×5 (00:40→22:16)
[2021-05-07] MEDS: HYDROmorphone 0.5 MG/0.5 ML SYRINGE IVP PRN ×4 (02:13→20:35)
[2021-05-07] MEDS: LEVOTHYROXINE 88 MCG TAB PO SCH (06:06)
[2021-05-07 07:31] LABS: Glucose,Whole Blood 96 mg/dL (75-99)
[2021-05-07 07:46] LABS: ALT 102 U/L (4-34); AST 86 U/L (14-36); African American GFR (CKD) 39 (>60 ml/min/1.73 sqM); Albumin/Globulin Ratio 0.9; Alkaline Phosphatase 233 U/L (38-126); Anion Gap 9 mmol/L; Blood Urea Nitrogen 31 mg/dL (7-17); Calcium 8.6 mg/dL (8.4-10.2); Carbon Dioxide 19 mmol/L (22-30); Chloride 108 mmol/L (98-107); Globulin 3.3 g/dL; Glucose 96 mg/dL (74-99); Magnesium 1.7 mg/dL (1.6-2.3); Non-African American GFR(CKD) 34 (>60 ml/min/1.73 sqM); Phosphorus 4.2 mg/dL (2.5-4.5); Potassium 4.7 mmol/L (3.5-5.1); Sodium 136 mmol/L (137-145); Total Bilirubin 0.3 mg/dL (0.2-1.3); Total Protein 6.3 g/dL (6.3-8.2)
[2021-05-07] MEDS: SYMBICORT 160-4.5 MCG INHALER INHALATION SCH ×2 (08:18→19:48)
[2021-05-07] MEDS: ENOXAPARIN 30 MG/0.3 ML SYRINGE SQ SCH (08:26)
[2021-05-07] MEDS: busPIRone HCl 10 MG TAB PO SCH ×2 (08:27→20:38)
[2021-05-07] MEDS: FUROSEMIDE 20 MG TAB PO SCH (08:28)
[2021-05-07] MEDS: ASPIRIN 81 MG PO SCH (08:28)
[2021-05-07] MEDS: buPROPion XL 150 MG TAB.ER.24H PO SCH (08:28)
[2021-05-07] MEDS: buPROPion XL 300 MG TAB.ER.24H PO SCH (08:28)
[2021-05-07] MEDS: LORATADINE 10 MG TAB PO SCH (08:28)
[2021-05-07] MEDS: THIAMINE 100 MG TAB PO SCH (08:28)
[2021-05-07] MEDS: PANTOPRAZOLE 40 MG TABLET PO SCH ×2 (08:29→17:13)
[2021-05-07] MEDS: hydrOXYzine pamoate 25 MG CAP PO SCH ×3 (08:29→20:38)
[2021-05-07] MEDS: FLUTICASONE 50MCG/SPRAY NASAL 16GM EA NOSTRIL SCH ×2 (09:22→20:39)
[2021-05-07 10:38] LABS: Basophils # (A) 0.05 X 10*3/uL (0.00-0.10); Basophils % (A) 0.4 %; Eosinophils # (A) 0.28 X 10*3/uL (0.04-0.35); Eosinophils % (A) 2.5 %; HCT 27.8 % (37.2-46.3); Lymphocytes # (A) 2.07 X 10*3/uL (0.90-5.00); Lymphocytes % (A) 18.4 %; MCH 25.7 pg (27.0-32.0); MCHC 28.8 g/dL (32.0-37.0); MCV 89.4 fL (80.0-97.0); Mean Platelet Volume 9.4 fL (9.5-12.2); Monocytes # (A) 0.95 X 10*3/uL (0.20-1.00); Monocytes % (A) 8.4 %; Neutrophils # (A) 7.84 X 10*3/uL (1.80-7.70); Neutrophils % (A) 69.5 %; Platelet Count 448 X 10*3/uL (140-440); RBC 3.11 X 10*6/uL (4.10-5.20); RDW 21.7 % (11.5-14.5); WBC 11.28 X 10*3/uL (4.50-10.00)
[2021-05-07] MEDS: MAGNESIUM SULFATE-D5W PMX 1 GM in DEXTROSE/WATER 1 100ML.BAG IVPB SCH ×2 (11:59→14:18)
[2021-05-07] MEDS: BUTALB/APAP/CAFF 50-325-40MG TAB PO PRN (12:01)
[2021-05-07 12:14] LABS: Glucose,Whole Blood 100 mg/dL (75-99)
[2021-05-07] MEDS: FERROUS SULFATE 325 MG TAB PO SCH (14:17)
[2021-05-07] MEDS: POTASSIUM CHLORIDE ER 10 MEQ TAB.ER.PRT PO SCH (14:18)
[2021-05-07] MEDS: 1: AMINO ACID 5%-D20W+LYTES*E* 1,000 ML 2: MVI, ADULT NO.4 WITH VIT K 10 ML, TRACE (CON IV SCH ×3 (15:35)
[2021-05-07 17:12] LABS: Glucose,Whole Blood 102 mg/dL (75-99)
--- NOTE | 2021-05-07 17:44 | P.PN ---
Subjective Progress Note Date: 05/07/21 Louise dennis, is a 76-year-old female patient who presented to ER with complaints of dyspnea and chest discomfort. Patient was recently admitted and treated for COVID-19. She has extensive medical history including asthma, COPD, respiratory disorder, thyroid disorder, immunoglobulin disorder, chronic TPN infusion, anxiety depression and opiod use. Patient's d-dimer elevated upon arrival 6.13. VQ scan was completed showing low probability for embolus no perfusion mismatch defects. Bilateral venous Doppler completed showing negative for DVT. Acute abdomen series completed showing nonspecific abdomen without evidence of obstruction or free intraperitoneal air scattered bilateral lung infiltrates suspicious for acute pneumonia postsurgical changes. Patient will be started on IV antibiotic Rocephin and azithromycin. Pulmonary services have been consulted. Home meds have been resumed. Repeat labs ordered. At this time patient is resting comfortably in bed on room air. Patient asking for pain medication. Patient denies nausea vomiting or diarrhea. Patient denies any urinary burning or frequency. On 05/06/2021 patient was seen and examined on the medical floor she is alert and oriented 3 in no distress, she is still complaining of chest wall pain and tightness, she is also complaining of cough, otherwise she denies any complaints there is no fever or chills no headache or dizziness no chest pain, there is no fever or chills no headache or dizziness no nausea or vomiting no abdominal pain no diarrhea no blood in the stools no burning with urination no frequency or urgency and no hematuria On 05/07/2021 patient was seen and examined on the medical floor she is alert a nd oriented 3 in no apparent distress there is no fever or chills she is still complaining of some cough no chest pain or shortness of breath no nausea or vomiting no abdominal pain no diarrhea no blood in the stools no burning with urination no frequency or urgency and no hematuria Objective - Vital Signs Vital signs: Vital Signs Temp 97.8 F 05/07/21 15:00 Pulse 91 05/07/21 15:00 Resp 18 05/07/21 15:00 BP 122/71 05/07/21 15:00 Pulse Ox 100 05/07/21 15:00 Intake & Output 05/06/21 05/07/21 05/07/21 18:59 06:59 18:59 Intake Total 300 Balance 300 Weight 40.823 kg Intake: Oral 300 Other: Voiding Method Bedside Commode Bedside Commode # Voids 2 3 3 - Exam In general patient is alert and oriented 3 in no apparent distress Head normocephalic and atraumatic Neck supple no JVD no goiter Lungs clear to auscultation bilaterally no wheezing or crackles Heart regular rate and rhythm S1-S2, no rub or gallop Abdomen is soft nontender nondistended positive bowel sounds no hepatosplenomegaly Extremities no edema Neuro no gross focal deficit - Labs CBC & Chem 7: 05/07/21 06:38 05/07/21 06:38 Labs: Abnormal Lab Results - Last 24 Hours (Table) 05/06/21 05/06/21 05/06/21 Range/Units 11:15 17:42 21:45 WBC (4.50-10.00) X 10*3/uL RBC (4.10-5.20) X 10*6/uL Hgb (12.0-15.0) g/dL Hct (37.2-46.3) % MCH (27.0-32.0) pg MCHC (32.0-37.0) g/dL RDW (11.5-14.5) % Plt Count (140-440) X 10*3/uL MPV (9.5-12.2) fL Immature Gran # (0.00-0.04) X 10*3/uL Neutrophils # (1.80-7.70) X 10*3/uL Sodium (137-145) mmol/L Chloride (98-107) mmol/L Carbon Dioxide (22-30) mmol/L BUN (7-17) mg/dL Creatinine (0.52-1.04) mg/dL POC Glucose (mg/dL) 103 H 101 H (75-99) mg/dL AST (14-36) U/L ALT (4-34) U/L Alkaline Phosphatase (38-126) U/L Albumin (3.5-5.0) g/dL Triglycerides 239.00 H (0.00-149.00) mg/dL 05/07/21 05/07/21 05/07/21 Range/Units 06:38 06:38 12:10 WBC 11.28 H (4.50-10.00) X 10*3/uL RBC 3.11 L (4.10-5.20) X 10*6/uL Hgb 8.0 L (12.0-15.0) g/dL Hct 27.8 L (37.2-46.3) % MCH 25.7 L (27.0-32.0) pg MCHC 28.8 L (32.0-37.0) g/dL RDW 21.7 H (11.5-14.5) % Plt Count 448 H (140-440) X 10*3/uL MPV 9.4 L (9.5-12.2) fL Immature Gran # 0.09 H (0.00-0.04) X 10*3/uL Neutrophils # 7.84 H (1.80-7.70) X 10*3/uL Sodium 136 L (137-145) mmol/L Chloride 108 H (98-107) mmol/L Carbon Dioxide 19 L (22-30) mmol/L BUN 31 H (7-17) mg/dL Creatinine 1.52 H (0.52-1.04) mg/dL POC Glucose (mg/dL) 100 H (75-99) mg/dL AST 86 H (14-36) U/L ALT 102 H (4-34) U/L Alkaline Phosphatase 233 H (38-126) U/L Albumin 3.0 L (3.5-5.0) g/dL Triglycerides (0.00-149.00) mg/dL 05/07/21 Range/Units 17:10 WBC (4.50-10.00) X 10*3/uL RBC (4.10-5.20) X 10*6/uL Hgb (12.0-15.0) g/dL Hct (37.2-46.3) % MCH (27.0-32.0) pg MCHC (32.0-37.0) g/dL RDW (11.5-14.5) % Plt Count (140-440) X 10*3/uL MPV (9.5-12.2) fL Immature Gran # (0.00-0.04) X 10*3/uL Neutrophils # (1.80-7.70) X 10*3/uL Sodium (137-145) mmol/L Chloride (98-107) mmol/L Carbon Dioxide (22-30) mmol/L BUN (7-17) mg/dL Creatinine (0.52-1.04) mg/dL POC Glucose (mg/dL) 102 H (75-99) mg/dL AST (14-36) U/L ALT (4-34) U/L Alkaline Phosphatase (38-126) U/L Albumin (3.5-5.0) g/dL Triglycerides (0.00-149.00) mg/dL Microbiology - Last 24 Hours (Table) 05/05/21 11:44 Blood Culture - Preliminary Blood No Growth after 48 hours Assessment and Plan Assessment: 1. Dyspnea secondary to pneumonia. Chest x-ray reveals bilateral infiltrates, Pro calcitonin level is elevated, patient is maintained on IV Zithromax and Rocephin, infectious disease following 2. Recent positive COVID-19 infection. COVID-19 repeat negative 3. Elevated d-dimer. VQ scan showing low probability for PE venous Doppler negative bilaterally 4. History of recurrent aspiration pneumonia maintained on TPN 5. Elevated liver enzymes. We'll continue to monitor 6. History of hypothyroidism 7. History of immunoglobulin disorder 8. History of degenerative osteoarthritis 9. History of pancreatitis 10. History of chronic back pain with history of laminectomy 11. History of bowel obstruction 12. History of anxiety and depression 13. History of severe protein calorie malnutrition DVT prophylaxis Lovenox. GI prophylaxis Protonix Pulmonary service is consulted Patient started on IV antibiotics Blood and sputum cultures ordered Repeat labs ordered
[2021-05-07] MEDS ORDERED: AZITHROMYCIN 500 MG TAB PO SCH (18:00)
[2021-05-07] MEDS: MIRTAZAPINE 45 MG TABLET PO SCH (20:37)
[2021-05-07] MEDS: SODIUM CHLORIDE 0.9% 1,000 ML IV SCH (20:42)
[2021-05-07 20:46] LABS: Glucose,Whole Blood 99 mg/dL (75-99)
[2021-05-07] MEDS: BENZONATATE 100 MG CAP PO PRN (22:16)
[2021-05-08] MEDS: oxyCODONE-APAP 5-325MG 1 EACH TAB PO PRN ×4 (02:00→16:46)
[2021-05-08] MEDS: HYDROmorphone 0.5 MG/0.5 ML SYRINGE IVP PRN ×2 (03:32→15:32)
[2021-05-08] MEDS: LEVOTHYROXINE 88 MCG TAB PO SCH (05:55)
[2021-05-08 07:04] LABS: African American GFR (CKD) 38 (>60 ml/min/1.73 sqM); Anion Gap 9 mmol/L; Blood Urea Nitrogen 39 mg/dL (7-17); Calcium 8.5 mg/dL (8.4-10.2); Carbon Dioxide 17 mmol/L (22-30); Chloride 108 mmol/L (98-107); Glucose 100 mg/dL (74-99); Magnesium 2.3 mg/dL (1.6-2.3); Non-African American GFR(CKD) 33 (>60 ml/min/1.73 sqM); Phosphorus 5.2 mg/dL (2.5-4.5); Sodium 134 mmol/L (137-145)
[2021-05-08 07:25] LABS: Glucose,Whole Blood 107 mg/dL (75-99)
[2021-05-08 07:26] LABS: Potassium 5.2 mmol/L (3.5-5.1)
[2021-05-08] MEDS: SYMBICORT 160-4.5 MCG INHALER INHALATION SCH (08:26)
[2021-05-08] MEDS: busPIRone HCl 10 MG TAB PO SCH (08:54)
[2021-05-08] MEDS: ASPIRIN 81 MG PO SCH (08:54)
[2021-05-08] MEDS: ENOXAPARIN 30 MG/0.3 ML SYRINGE SQ SCH (08:54)
[2021-05-08] MEDS: LORATADINE 10 MG TAB PO SCH (08:54)
[2021-05-08] MEDS: PANTOPRAZOLE 40 MG TABLET PO SCH (08:55)
[2021-05-08] MEDS: hydrOXYzine pamoate 25 MG CAP PO SCH (08:55)
[2021-05-08] MEDS: THIAMINE 100 MG TAB PO SCH (08:55)
[2021-05-08] MEDS: FUROSEMIDE 20 MG TAB PO SCH (08:55)
[2021-05-08] MEDS: buPROPion XL 150 MG TAB.ER.24H PO SCH (08:55)
[2021-05-08] MEDS: FLUTICASONE 50MCG/SPRAY NASAL 16GM EA NOSTRIL SCH (09:00)
[2021-05-08] MEDS: buPROPion XL 300 MG TAB.ER.24H PO SCH (10:32)
[2021-05-08 11:34] LABS: Glucose,Whole Blood 97 mg/dL (75-99)
[2021-05-08] MEDS: 1: AMINO ACID 5%-D20W+LYTES*E* 1,000 ML 2: MVI, ADULT NO.4 WITH VIT K 10 ML, TRACE (CON IV SCH ×6 (11:48→11:52)
[2021-05-08] MEDS: FERROUS SULFATE 325 MG TAB PO SCH (11:51)
[2021-05-08] MEDS: POTASSIUM CHLORIDE ER 10 MEQ TAB.ER.PRT PO SCH (11:51)
[2021-05-08] MEDS: BUTALB/APAP/CAFF 50-325-40MG TAB PO PRN (12:02)
--- NOTE | 2021-05-08 12:19 | P.DS ---
Providers Date of admission: 05/07/21 07:58 Expected date of discharge: 05/08/21 Attending physician: Palmer Desir Consults: 05/04/21 18:01 Consult Physician Routine Consulting Provider: Geovanny Womack Consult Reason/Comments: dyspnea Do you want consulting provider notified?: Yes 05/05/21 11:04 Consult Physician Routine Consulting Provider: Jas Gregorio Consult Reason/Comments: pneumonia recent covid 19 Do you want consulting provider notified?: Yes Primary care physician: Ale Eli Hospital Course: Discharge diagnosis 1. Dyspnea secondary to pneumonia. Chest x-ray reveals bilateral infiltrates, Pro calcitonin level is elevated, patient is maintained on IV Zithromax and Rocephin, infectious disease following 2. Recent positive COVID-19 infection. COVID-19 repeat negative 3. Elevated d-dimer. VQ scan showing low probability for PE venous Doppler negative bilaterally 4. History of recurrent aspiration pneumonia maintained on TPN 5. Elevated liver enzymes. We'll continue to monitor 6. History of hypothyroidism 7. History of immunoglobulin disorder 8. History of degenerative osteoarthritis 9. History of pancreatitis 10. History of chronic back pain with history of laminectomy 11. History of bowel obstruction 12. History of anxiety and depression 13. History of severe protein calorie malnutrition Hospital course Louise dennis, is a 76-year-old female patient who presented to ER with complaints of dyspnea and chest discomfort. Patient was recently admitted and treated for COVID-19. She has extensive medical history including asthma, COPD, respiratory disorder, thyroid disorder, immunoglobulin disorder, chronic TPN infusion, anxiety depression and opiod use. Patient's d-dimer elevated upon arrival 6.13. VQ scan was completed showing low probability for embolus no perfusion mismatch defects. Bilateral venous Doppler completed showing negative for DVT. Acute abdomen series completed showing nonspecific abdomen without evidence of obstruction or free intraperitoneal air scattered bilateral lung infiltrates suspicious for acute pneumonia postsurgical changes. Patient will be started on IV antibiotic Rocephin and azithromycin. Pulmonary services have been consulted. Home meds have been resumed. Repeat labs ordered. At this time patient is resting comfortably in bed on room air. Patient asking for pain medication. Patient denies nausea vomiting or diarrhea. Patient denies any urinary burning or frequency. On 05/06/2021 patient was seen and examined on the medical floor she is alert and oriented 3 in no distress, she is still complaining of chest wall pain and tightness, she is also complaining of cough, otherwise she denies any complaints there is no fever or chills no headache or dizziness no chest pain, there is no fever or chills no headache or dizziness no nausea or vomiting no abdominal pain no diarrhea no blood in the stools no burning with urination no frequency or urgency and no hematuria On 05/07/2021 patient was seen and examined on the medical floor she is alert and oriented 3 in no apparent distress there is no fever or chills she is still complaining of some cough no chest pain or shortness of breath no nausea or vomiting no abdominal pain no diarrhea no blood in the stools no burning with urination no frequency or urgency and no hematuria On 05/08/2021 patient is alert and oriented 3., Blood pressure 109/63 and a pulse ox of 90% on room air. Patient to be DC'd home today on Omnicef patient to follow-up with PCP for further management. Patient denies chest pain. Patient denies shortness breath. Patient denies nausea vomiting or diarrhea. Patient denies any urinary burning or frequency Patient Condition at Discharge: Stable Plan - Discharge Summary Discharge Rx Participant: No New Discharge Prescriptions: New Cefdinir [Omnicef] 300 mg PO Q12HR 10 Days #20 capsule Continue Ferrous Sulfate [Iron (65 MG Elemental)] 325 mg PO DAILY@1200 calcitrioL [Calcitriol] 1 mcg PO MOWEFR Levothyroxine Sodium [Synthroid] 88 mcg PO DAILY busPIRone HCL [Buspar] 30 mg PO BID hydrOXYzine pamoate [hydrOXYzine PAMOATE] 25 mg PO TID Potassium Chloride ER [K-Dur 10] 30 meq PO DAILY@1200 Pantoprazole Sodium [Protonix] 40 mg PO BID 30 Days #60 tablet. Butalb/APAP/Caff 50-325-40Mg [Fioricet 50-325-40] 1 tab PO BID PRN PRN Reason: Migraine Headache buPROPion XL [Wellbutrin XL] 150 mg PO DAILY HYDROcodone/APAP 10-325MG [[place] 10-325] 1 tab PO BID PRN PRN Reason: Pain fentaNYL 75MCG/HR PATCH [Duragesic 75MCG/HR] 1 patch TRANSDERM Q72H 3 Days #3 patch Furosemide [Lasix] 20 mg PO DAILY #6 tab Mirtazapine [Remeron] 45 mg PO HS Albuterol Sulfate [Albuterol Sulfate Hfa] 2 puff INHALATION RT-Q6H PRN PRN Reason: Shortness Of Breath Aspirin 81 mg PO DAILY tab Benzonatate [Tessalon Perles] 100 mg PO TID PRN PRN Reason: Cough buPROPion XL [Wellbutrin XL] 300 mg PO DAILY Tpn 1 dose IV DAILY@1900 Budesonide/Formoterol Fumarate [Symbicort 160-4.5 Mcg Inhaler] 2 puff INHALATION RT-BID Fluticasone Nasal [place] [Flonase Nasal [place]] 2 spray EA NOSTRIL BID Loratadine [Claritin] 10 mg PO DAILY Thiamine [Vitamin B-1] 100 mg PO DAILY SUMAtriptan succinate [Imitrex] 50 mg PO BID PRN PRN Reason: Migraine Headache Discontinued Dexamethasone 6 mg PO DAILY Discharge Medication List Ferrous Sulfate [Iron (65 MG Elemental)] 325 mg PO DAILY@1200 11/06/15 [History] Levothyroxine Sodium [Synthroid] 88 mcg PO DAILY 06/07/19 [History] calcitrioL [Calcitriol] 1 mcg PO MOWEFR 06/07/19 [History] busPIRone HCL [Buspar] 30 mg PO BID 04/14/20 [History] Potassium Chloride ER [K-Dur 10] 30 meq PO DAILY@1200 04/18/20 [History] hydrOXYzine pamoate [hydrOXYzine PAMOATE] 25 mg PO TID 04/18/20 [History] Pantoprazole Sodium [Protonix] 40 mg PO BID 30 Days #60 tablet. 04/27/20 [Rx] Butalb/APAP/Caff 50-325-40Mg [Fioricet 50-325-40] 1 tab PO BID PRN 06/30/20 [History] buPROPion XL [Wellbutrin XL] 150 mg PO DAILY 11/04/20 [History] Furosemide [Lasix] 20 mg PO DAILY #6 tab 12/13/20 [Rx] HYDROcodone/APAP 10-325MG [[place] 10-325] 1 tab PO BID PRN 12/13/20 [History] fentaNYL 75MCG/HR PATCH [Duragesic 75MCG/HR] 1 patch TRANSDERM Q72H 3 Days #3 patch 12/13/20 [Rx] Tpn 1 dose IV DAILY@1900 02/20/21 [History] buPROPion XL [Wellbutrin XL] 300 mg PO DAILY 02/20/21 [History] Albuterol Sulfate [Albuterol Sulfate Hfa] 2 puff INHALATION RT-Q6H PRN 04/07/21 [History] Budesonide/Formoterol Fumarate [Symbicort 160-4.5 Mcg Inhaler] 2 puff INHALATION RT-BID 04/07/21 [History] Fluticasone Nasal [place] [Flonase Nasal [place]] 2 spray EA NOSTRIL BID 04/07/21 [History] Loratadine [Claritin] 10 mg PO DAILY 04/07/21 [History] Mirtazapine [Remeron] 45 mg PO HS 04/07/21 [History] Aspirin 81 mg PO DAILY tab 04/27/21 [Rx] Benzonatate [Tessalon Perles] 100 mg PO TID PRN 05/04/21 [History] SUMAtriptan succinate [Imitrex] 50 mg PO BID PRN 05/04/21 [History] Thiamine [Vitamin B-1] 100 mg PO DAILY 05/04/21 [History] Cefdinir [Omnicef] 300 mg PO Q12HR 10 Days #20 capsule 05/08/21 [Rx] Follow up Appointment(s)/Referral(s): Ale Eli MD [Primary Care Provider] - 1-2 days [facility], [NON-STAFF] - 1-2 Days Activity/Diet/Wound Care/Special Instructions: [facility] can be reached at [phone] with any questions, they supply your home TPN. Discharge Disposition: HOME WITH HOME HEALTH SERVICES
[2021-05-08 12:38] LABS: Anisocytosis Moderate; HCT 30.3 % (34.0-46.0); HGB 8.2 gm/dL (11.4-16.0); Hypochromasia Marked; MCH 26.5 pg (25.0-35.0); MCHC 27.1 g/dL (31.0-37.0); Macrocytosis Moderate; Mean Platelet Volume 8.7; Platelet Count 332 k/uL (150-450); RBC 3.09 m/uL (3.80-5.40); RDW 21.2 % (11.5-15.5); WBC 8.5 k/uL (3.8-10.6)
[2021-05-08 12:46] LABS: MCV 97.9 fL (80.0-100.0)
[2021-05-08 13:26] LABS: Eosinophils # (M) 0.17 k/uL (0-0.7); Lymphocytes # (M) 1.62 k/uL (1.0-4.8); Neutrophils # (M) 6.72 k/uL (1.3-7.7); Neutrophils % (M) 79 %; Nucleated Red Blood Cells 0 /100 WBC (0-0); Total Cells Counted 100
[2021-05-08 13:28] LABS: Poikilocytosis (M) Present
[2021-05-08 15:40] VITALS: BP 133/75; PULSE 114; RESP 20; TEMP 98.2
--- NOTE | 2021-05-08 20:29 | P.PN ---
Subjective Progress Note Date: 05/06/21 Principal diagnosis: Pneumonia Patient is a 76-year female with multiple comorbidities admitted to the hospital for increasing shortness of breath and cough along with bilateral lower lobe acute chest pain abnormal x-ray concerning for pneumonia COVID testing was negative. On today's evaluation that is 05/06/2021, the patient denies having any fever or any chills, the patient's abdominal pain to the bilateral lower rib cage area denies any worsening cough or sputum production no abdominal pain or diarrhea Objective - Vital Signs Vital signs: Vital Signs Temp 98.3 F 05/06/21 15:00 Pulse 85 05/06/21 15:00 Resp 18 05/06/21 15:00 BP 133/73 05/06/21 15:00 Pulse Ox 98 05/06/21 15:00 Intake & Output 05/05/21 05/06/21 05/06/21 18:59 06:59 18:59 Intake Total 602 300 Balance 602 300 Weight 40.823 kg Intake: Oral 602 300 Other: Voiding Method Bedside Commode Bedside Commode Bedside Commode # Voids 2 1 2 - Exam GENERAL DESCRIPTION: Elderly female lying in bed in no distress RESPIRATORY SYSTEM: Unlabored breathing , decreased breath sounds at bases HEART: S1 S2 regular rate and rhythm ,no loud murmurs ABDOMEN: Soft , no tenderness EXTREMITIES: No edema feet - Labs CBC & Chem 7: 05/08/21 06:01 05/08/21 06:01 Labs: Abnormal Lab Results - Last 24 Hours (Table) 05/05/21 05/06/21 05/06/21 Range/Units 17:20 06:47 06:47 RBC 2.90 L (4.10-5.20) X 10*6/uL Hgb 7.4 L (12.0-15.0) g/dL Hct 25.9 L (37.2-46.3) % MCH 25.5 L (27.0-32.0) pg MCHC 28.6 L (32.0-37.0) g/dL RDW 21.3 H (11.5-14.5) % Plt Count 441 H (140-440) X 10*3/uL MPV 9.2 L (9.5-12.2) fL Chloride (98-107) mmol/L Carbon Dioxide 19.8 L (20.0-27.5) mmol/L BUN 29.8 H (9.0-27.0) mg/dL Creatinine (0.52-1.04) mg/dL Est GFR (CKD-EPI)AfAm 46.8 L (60.0-200.0) Est GFR (CKD-EPI)NonAf 40.4 L (60.0-200.0) BUN/Creatinine Ratio 22.92 H (12.00-20.00) Ratio POC Glucose (mg/dL) 106 H (75-99) mg/dL Calcium 8.6 L (8.7-10.3) mg/dL Total Bilirubin <0.20 L (0.30-1.20) mg/dL AST 81 H (13-35) U/L ALT 101 H (8-44) U/L Alkaline Phosphatase 251 H (41-126) U/L Total Protein 5.8 L (6.2-8.2) g/dL Albumin 3.1 L (3.8-4.9) g/dL Albumin/Globulin Ratio 1.15 L (1.60-3.17) g/dL 05/06/21 05/06/21 Range/Units 07:28 11:15 RBC (4.10-5.20) X 10*6/uL Hgb (12.0-15.0) g/dL Hct (37.2-46.3) % MCH (27.0-32.0) pg MCHC (32.0-37.0) g/dL RDW (11.5-14.5) % Plt Count (140-440) X 10*3/uL MPV (9.5-12.2) fL Chloride 110 H (98-107) mmol/L Carbon Dioxide (20.0-27.5) mmol/L BUN 31 H (9.0-27.0) mg/dL Creatinine 1.40 H (0.52-1.04) mg/dL Est GFR (CKD-EPI)AfAm (60.0-200.0) Est GFR (CKD-EPI)NonAf (60.0-200.0) BUN/Creatinine Ratio (12.00-20.00) Ratio POC Glucose (mg/dL) 124 H (75-99) mg/dL Calcium (8.7-10.3) mg/dL Total Bilirubin (0.30-1.20) mg/dL AST 74 H (13-35) U/L ALT 94 H (8-44) U/L Alkaline Phosphatase 261 H (41-126) U/L Total Protein (6.2-8.2) g/dL Albumin 3.1 L (3.8-4.9) g/dL Albumin/Globulin Ratio (1.60-3.17) g/dL Microbiology - Last 24 Hours (Table) 05/05/21 11:44 Blood Culture - Preliminary Blood No Growth after 24 hours Assessment and Plan Assessment: 1-Patient presented to hospital with bilateral rib cage pain with some infiltrate at the bases concerning for pneumonia possible community-acquired patient seems to be clinically responding to the Rocephin and Zithromax to co ntinue try to obtain sputum for gram stain and culture to narrow down her antibiotics Time with Patient: Less than 30
--- NOTE | 2021-05-08 20:31 | P.PN ---
Subjective Progress Note Date: 05/07/21 Principal diagnosis: Pneumonia Patient is a 76-year female with multiple comorbidities admitted to the hospital for increasing shortness of breath and cough along with bilateral lower lobe acute chest pain abnormal x-ray concerning for pneumonia COVID testing was negative. On today's evaluation that is 05/07/2021, the patient Remains to be afebrile, still complaining of lower rib cage chest pain no control of the pain medication did have a cough not bringing up any sputum no abdominal pain and no diarrhea Objective - Vital Signs Vital signs: Vital Signs Temp 98.2 F 05/08/21 15:00 Pulse 114 H 05/08/21 15:00 Resp 20 05/08/21 15:00 BP 133/75 05/08/21 15:00 Pulse Ox 98 05/08/21 15:00 Intake & Output 05/08/21 05/08/21 05/09/21 06:59 18:59 06:59 Intake Total 1444 Balance 1444 Weight 40.823 kg Intake: Intake, IV Titration 1000 Amount Amino Acid 5%-D20w+Lytes* 1000 E* 1,000 ml @ 50 mls/hr IV .BY DURATION CHAD Rx#: [id number] Oral 444 Other: Voiding Method Bedside Commode Toilet # Voids 2 2 - Exam GENERAL DESCRIPTION: Elderly female lying in bed in no distress RESPIRATORY SYSTEM: Unlabored breathing , decreased breath sounds at bases HEART: S1 S2 regular rate and rhythm ,no loud murmurs ABDOMEN: Soft , no tenderness EXTREMITIES: No edema feet - Labs CBC & Chem 7: 05/08/21 06:01 05/08/21 06:01 Labs: Abnormal Lab Results - Last 24 Hours (Table) 05/08/21 05/08/21 05/08/21 Range/Units 06:01 06:01 07:23 RBC 3.09 L (3.80-5.40) m/uL Hgb 8.2 L (11.4-16.0) gm/dL Hct 30.3 L (34.0-46.0) % MCHC 27.1 L (31.0-37.0) g/dL RDW 21.2 H (11.5-15.5) % Sodium 134 L (137-145) mmol/L Potassium 5.2 H (3.5-5.1) mmol/L Chloride 108 H (98-107) mmol/L Carbon Dioxide 17 L (22-30) mmol/L BUN 39 H (7-17) mg/dL Creatinine 1.53 H (0.52-1.04) mg/dL Glucose 100 H (74-99) mg/dL POC Glucose (mg/dL) 107 H (75-99) mg/dL Phosphorus 5.2 H (2.5-4.5) mg/dL Microbiology - Last 24 Hours (Table) 05/05/21 11:44 Blood Culture - Preliminary Blood No Growth after 72 hours Assessment and Plan Assessment: 1-Patient presented to hospital with bilateral rib cage pain with some infiltrate at the bases concerning for pneumonia possible community-acquired patient seems to be clinically responding to the Rocephin and Zithromax RN has been advised to obtain sputum for gram stain and culture And monitor clinical course closely
--- NOTE | 2021-05-08 20:32 | P.PN ---
Subjective Progress Note Date: 05/08/21 Principal diagnosis: Pneumonia Patient is a 76-year female with multiple comorbidities admitted to the hospital for increasing shortness of breath and cough along with bilateral lower lobe acute chest pain abnormal x-ray concerning for pneumonia COVID testing was negative. On today's evaluation that is 05/08/2021, The patient denies having any fever or any chills, patient pain has decreased in intensity did have a cough no worsening not bringing up any sputum denies having any nausea no vomiting and no diarrhea Objective - Vital Signs Vital signs: Vital Signs Temp 98.2 F 05/08/21 15:00 Pulse 114 H 05/08/21 15:00 Resp 20 05/08/21 15:00 BP 133/75 05/08/21 15:00 Pulse Ox 98 05/08/21 15:00 Intake & Output 05/08/21 05/08/21 05/09/21 06:59 18:59 06:59 Intake Total 1444 Balance 1444 Weight 40.823 kg Intake: Intake, IV Titration 1000 Amount Amino Acid 5%-D20w+Lytes* 1000 E* 1,000 ml @ 50 mls/hr IV .BY DURATION CHAD Rx#: [id number] Oral 444 Other: Voiding Method Bedside Commode Toilet # Voids 2 2 - Exam GENERAL DESCRIPTION: Elderly female lying in bed in no distress RESPIRATORY SYSTEM: Unlabored breathing , decreased breath sounds at bases, No wheeze HEART: S1 S2 regular rate and rhythm ABDOMEN: Soft , no tenderness EXTREMITIES: No edema feet - Labs CBC & Chem 7: 05/08/21 06:01 05/08/21 06:01 Labs: Abnormal Lab Results - Last 24 Hours (Table) 05/08/21 05/08/21 05/08/21 Range/Units 06:01 06:01 07:23 RBC 3.09 L (3.80-5.40) m/uL Hgb 8.2 L (11.4-16.0) gm/dL Hct 30.3 L (34.0-46.0) % MCHC 27.1 L (31.0-37.0) g/dL RDW 21.2 H (11.5-15.5) % Sodium 134 L (137-145) mmol/L Potassium 5.2 H (3.5-5.1) mmol/L Chloride 108 H (98-107) mmol/L Carbon Dioxide 17 L (22-30) mmol/L BUN 39 H (7-17) mg/dL Creatinine 1.53 H (0.52-1.04) mg/dL Glucose 100 H (74-99) mg/dL POC Glucose (mg/dL) 107 H (75-99) mg/dL Phosphorus 5.2 H (2.5-4.5) mg/dL Microbiology - Last 24 Hours (Table) 05/05/21 11:44 Blood Culture - Preliminary Blood No Growth after 72 hours Assessment and Plan Assessment: 1-Patient presented to hospital with bilateral rib cage pain with some infiltrate at the bases concerning for pneumonia possible community-acquired patient seems to be clinically responding to the Rocephin and Zithromax Sputum could not be obtained plan to finish therapy short course of oral Ceftin and close outpatient follow-up Time with Patient: Less than 30
[2021-05-09] MEDS ORDERED: PARENTERAL ELECTROLYTES IV SCH ×4 (08:00)
[2021-05-09] MEDS ORDERED: [UNRECOGNIZED DRUG - OTHER] IV SCH ×4 (08:00)
[2021-05-09] MEDS ORDERED: MVI IV SCH ×4 (08:00)
[2021-05-09] MEDS ORDERED: AMINO ACIDS IV SCH ×4 (08:00)
[2021-05-09] MEDS ORDERED: DEXTROSE 20% IV SCH ×4 (08:00)
== END 2021-05-08 16:56 | disposition home health service (06) | DRG 193 ==
LOC: EC 12:23 → 6NMEDSUR 18:34 → OBSVTOIN 05-07 07:58
PROVIDERS: ADMIT Internal Medicine; ATTEND Internal Medicine
PROC: 3E0436Z Introduction of Nutritional Substance into Central Vein, Percutaneous Approach (ICD-10-PCS; principal; 2021-05-07)
DX: J18.9 Pneumonia, unspecified organism (principal); E43 Unspecified severe protein-calorie malnutrition; J44.0 Chronic obstructive pulmonary disease with (acute) lower respiratory infection; N18.4 Chronic kidney disease, stage 4 (severe); Z68.1 Body mass index [BMI] 19.9 or less, adult; E03.9 Hypothyroidism, unspecified; F32.A Depression, unspecified; F41.0 Panic disorder [episodic paroxysmal anxiety]; G89.29 Other chronic pain; R79.1 Abnormal coagulation profile; Z86.16 Personal history of COVID-19; Z20.822 Contact with and (suspected) exposure to COVID-19; G43.909 Migraine, unspecified, not intractable, without status migrainosus; M48.00 Spinal stenosis, site unspecified; Z87.01 Personal history of pneumonia (recurrent); J45.909 Unspecified asthma, uncomplicated; Z79.51 Long term (current) use of inhaled steroids; Z79.82 Long term (current) use of aspirin; K21.9 Gastro-esophageal reflux disease without esophagitis; Z79.890 Hormone replacement therapy; Z79.899 Other long term (current) drug therapy; Z80.41 Family history of malignant neoplasm of ovary; Z80.51 Family history of malignant neoplasm of kidney; Z82.49 Family history of ischemic heart disease and other diseases of the circulatory system; Z83.6 Family history of other diseases of the respiratory system; Z60.2 Problems related to living alone; Z84.1 Family history of disorders of kidney and ureter; Z86.73 Personal history of transient ischemic attack (TIA), and cerebral infarction without residual deficits; Z87.11 Personal history of peptic ulcer disease; Z90.710 Acquired absence of both cervix and uterus; Z96.642 Presence of left artificial hip joint; Z90.3 Acquired absence of stomach [part of]; Z79.891 Long term (current) use of opiate analgesic; Z98.890 Other specified postprocedural states; Z88.5 Allergy status to narcotic agent; Z88.8 Allergy status to other drugs, medicaments and biological substances; Z91.048 Other nonmedicinal substance allergy status; R94.5 Abnormal results of liver function studies
CPT/HCPCS: 36415; 71045; 74022; 78582; 80048; 80053; 82330; 83605; 83690; 83735; 84100; 84145; 84478; 84484; 85025; 85379; 85610; 85730; 87040; 87635; 93005; 93970; 94640; 96365; 96366; 96368; 96375; 99285

== ENCOUNTER 2021-05-12 10:29 | Inpatient (IN) | payer MEDICARE, OTHER ==
[2021-05-12] MEDS ORDERED: HYDROmorphone 0.5 MG/0.5 ML SYRINGE IVP STA (11:20)
[2021-05-12] MEDS ORDERED: SODIUM CHLORIDE 0.9% 1,000 ML IV STA (11:20)
--- NOTE | 2021-05-12 11:24 | ED ---
General Adult HPI - General Chief complaint: Recheck/Abnormal Lab/Rx Stated complaint: Picc came out Time Seen by Provider: 05/12/21 10:47 Source: patient Mode of arrival: ambulatory Limitations: no limitations - History of Present Illness Initial comments: 76-year-old female with a pertinent past medical history of remote partial gastrectomy presents to the emergency room for a chief complaint of PICC line displacement. Patient states that she is supposed to get TPN through her PICC line secondary to her partial gastrectomy. However she states this was dislodged 2 days ago. Patient states she has not had anything to eat or drink since that time. Patient is not currently receiving anything else through her PICC line. Patient is also currently complaining of a headache as she hasn't taken her pain medication.Patient has no other complaints at this time including shortness of breath, chest pain, abdominal pain, nausea or vomiting, headache, or visual changes. - Related Data Home Medications Medication Instructions Recorded Confirmed Ferrous Sulfate [Iron (65 MG 325 mg PO DAILY@1200 11/06/15 05/12/21 Elemental)] Levothyroxine Sodium [Synthroid] 88 mcg PO DAILY 06/07/19 05/12/21 calcitrioL [Calcitriol] 1 mcg PO MOWEFR 06/07/19 05/12/21 busPIRone HCL [Buspar] 30 mg PO BID 04/14/20 05/12/21 Potassium Chloride ER [K-Dur 10] 30 meq PO DAILY@1200 04/18/20 05/12/21 hydrOXYzine pamoate [hydrOXYzine 25 mg PO TID 04/18/20 05/12/21 PAMOATE] Butalb/APAP/Caff 50-325-40Mg 1 tab PO BID PRN 06/30/20 05/12/21 [Fioricet 50-325-40] buPROPion XL [Wellbutrin XL] 150 mg PO DAILY 11/04/20 05/12/21 HYDROcodone/APAP 10-325MG [[place] 1 tab PO BID PRN 12/13/20 05/12/21 10-325] Tpn 1 dose IV DAILY@1900 02/20/21 05/12/21 buPROPion XL [Wellbutrin XL] 300 mg PO DAILY 02/20/21 05/12/21 Albuterol Sulfate [Albuterol 2 puff INHALATION RT-Q6H PRN 12/19/21 01/23/22 Sulfate Hfa] Budesonide/Formoterol Fumarate 2 puff INHALATION RT-BID 04/07/21 05/12/21 [Symbicort 160-4.5 Mcg Inhaler] Fluticasone Nasal [place] [Flonase 2 spr EA NOSTRIL BID 04/07/21 05/12/21 Nasal [place]] Loratadine [Claritin] 10 mg PO DAILY 04/07/21 05/12/21 Mirtazapine [Remeron] 45 mg PO HS 04/07/21 05/12/21 Benzonatate [Tessalon Perles] 100 mg PO TID PRN 05/04/21 05/12/21 SUMAtriptan succinate [Imitrex] 50 mg PO BID PRN 05/04/21 05/12/21 Thiamine [Vitamin B-1] 100 mg PO DAILY 05/04/21 05/12/21 Aspirin EC [Ecotrin Low Dose] 81 mg PO DAILY 05/12/21 05/12/21 Previous Rx's Medication Instructions Recorded Pantoprazole Sodium [Protonix] 40 mg PO BID 30 Days #60 tablet. 04/27/20 Furosemide [Lasix] 20 mg PO DAILY #6 tab 12/13/20 fentaNYL 75MCG/HR PATCH [Duragesic 1 patch TRANSDERM Q72H 3 Days #3 12/13/20 75MCG/HR] patch Allergies Allergy/AdvReac Type Severity Reaction Status Date / Time denosumab [From Prolia] Allergy SEVERE Verified 05/12/21 11:56 CALCIUM LOSS morphine AdvReac Confusion Verified 05/12/21 11:56 DUST Allergy Itching Uncoded 05/12/21 11:56 MOLDS Allergy Itching Uncoded 05/12/21 11:56 Review of Systems ROS Statement: Those systems with pertinent positive or pertinent negative responses have been documented in the HPI. ROS Other: All systems not noted in ROS Statement are negative. 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 History of Any Multi-Drug Resistant Organisms: None Reported Past Surgical History: Back Surgery, Bowel Resection, Hysterectomy, Joint Replacement Additional Past Surgical History / Comment(s): LOWER BACK SURGERY lamenectomy/discetomy then had a revison of that sx. 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, nasal sx d/t broken nose, colonoscopy/egd, PAIN CLINIC PROCEDURES, PORT A CATH INSERTION, LT ADEOLA, left hip replacement Past Anesthesia/Blood Transfusion Reactions: No Reported Reaction Additional Past Anesthesia/Blood Transfusion Reaction / Comment(s): PT RECIEVED BLOOD TRANSFUSIONS AFTER STOMACH SURGERY Past Psychological History: Anxiety, Depression, Panic Disorder Smoking Status: Never smoker Past Alcohol Use History: None Reported Past Drug Use History: None Reported - Past Family History Father Family Medical History: Cancer, Coronary Artery Disease (CAD) Additional Family Medical History / Comment(s): FATHER HAD BLADDER AND KIDNEY CANCER. FATHER HAD TB WHEN HE WAS A CHILD .FATHER AT AGE 87. Mother Family Medical History: Cancer Additional Family Medical History / Comment(s): MOTHER AT AGE 58 OF OVARIAN CANCER. General Exam Limitations: no limitations General appearance: alert, in no apparent distress Head exam: Present: atraumatic Eye exam: Present: normal appearance, PERRL, EOMI. Absent: scleral icterus, conjunctival injection ENT exam: Present: normal exam, mucous membranes moist Neck exam: Present: normal inspection, full ROM. Absent: tenderness Respiratory exam: Present: normal lung sounds bilaterally. Absent: respiratory distress, wheezes Cardiovascular Exam: Present: regular rate, normal rhythm, normal heart sounds GI/Abdominal exam: Present: soft, normal bowel sounds. Absent: distended, tenderness Neurological exam: Present: alert Course Vital Signs 05/12/21 05/12/21 10:35 12:35 Temperature 97.9 F Pulse Rate 110 H 96 Respiratory 20 18 Rate Blood Pressure 158/83 152/82 O2 Sat by Pulse 99 95 Oximetry Medical Decision Making - Medical Decision Making Vitals are stable. Patient is well-appearing. CBC is unremarkable. Hemoglobin of 9.3 is chronic. CMP does show slightly elevated creatinine likely secondary to dehydration however patient does have chronic kidney disease. Patient will be admitted to Dr. Desir for PICC line placement and IV hydration. He is agreeable to this. - Lab Data Result diagrams: 05/12/21 11:47 01/23/22 11:47 Lab Results 05/12/21 05/12/21 Range/Units 11:47 11:47 WBC 13.3 H (3.8-10.6) k/uL RBC 3.51 L (3.80-5.40) m/uL Hgb 9.3 L (11.4-16.0) gm/dL Hct 31.0 L (34.0-46.0) % MCV 88.4 D (80.0-100.0) fL MCH 26.6 (25.0-35.0) pg MCHC 30.1 L (31.0-37.0) g/dL RDW 20.6 H (11.5-15.5) % Plt Count 465 H (150-450) k/uL MPV 7.3 Neutrophils % 87 % Lymphocytes % 5 % Monocytes % 5 % Eosinophils % 1 % Basophils % 0 % Neutrophils # 11.6 H (1.3-7.7) k/uL Lymphocytes # 0.7 L (1.0-4.8) k/uL Monocytes # 0.6 (0-1.0) k/uL Eosinophils # 0.1 (0-0.7) k/uL Basophils # 0.0 (0-0.2) k/uL Hypochromasia Marked Anisocytosis Moderate Sodium 140 (137-145) mmol/L Potassium 4.4 (3.5-5.1) mmol/L Chloride 104 (98-107) mmol/L Carbon Dioxide 25 (22-30) mmol/L Anion Gap 11 mmol/L BUN 44 H (7-17) mg/dL Creatinine 1.83 H (0.52-1.04) mg/dL Est GFR (CKD-EPI)AfAm 31 (>60 ml/min/1.73 sqM) Est GFR (CKD-EPI)NonAf 27 (>60 ml/min/1.73 sqM) Glucose 121 H (74-99) mg/dL Calcium 9.2 (8.4-10.2) mg/dL Magnesium 2.3 (1.6-2.3) mg/dL Disposition Clinical Impression: Chronic anemia Narrative: picc line placement Disposition: ADMITTED IP TO THIS HOSP Is patient prescribed a controlled substance at d/c from ED?: No Referrals: Ale Eli MD [Primary Care Provider] - 1-2 days Time of Disposition: 13:10
[2021-05-12 12:21] LABS: Anisocytosis Moderate; Basophils % (A) 0 %; Eosinophils # (A) 0.1 k/uL (0-0.7); Eosinophils % (A) 1 %; HGB 9.3 gm/dL (11.4-16.0); Hypochromasia Marked; Lymphocytes # (A) 0.7 k/uL (1.0-4.8); Lymphocytes % (A) 5 %; MCH 26.6 pg (25.0-35.0); MCHC 30.1 g/dL (31.0-37.0); Mean Platelet Volume 7.3; Monocytes # (A) 0.6 k/uL (0-1.0); Monocytes % (A) 5 %; Neutrophils # (A) 11.6 k/uL (1.3-7.7); Neutrophils % (A) 87 %; Platelet Count 465 k/uL (150-450); RBC 3.51 m/uL (3.80-5.40); RDW 20.6 % (11.5-15.5); WBC 13.3 k/uL (3.8-10.6)
[2021-05-12 12:24] LABS: MCV 88.4 fL (80.0-100.0)
[2021-05-12 12:36] LABS: Calcium 9.2 mg/dL (8.4-10.2); Magnesium 2.3 mg/dL (1.6-2.3); Potassium 4.4 mmol/L (3.5-5.1)
[2021-05-12] MEDS ORDERED: NALOXONE 0.4 MG/ML 1 ML VIAL IV PRN (13:10)
[2021-05-12] MEDS ORDERED: HYDROmorphone 0.5 MG/0.5 ML SYRINGE IVP PRN (13:10)
[2021-05-12] MEDS ORDERED: SUMAtriptan succinate 50 MG TAB PO PRN (13:11)
[2021-05-12] MEDS ORDERED: BENZONATATE 100 MG CAP PO PRN (13:11)
[2021-05-12] MEDS: SODIUM CHLORIDE 0.9% 1,000 ML IV SCH (13:30)
[2021-05-12] MEDS: BUTALB/APAP/CAFF 50-325-40MG TAB PO PRN (14:42)
[2021-05-12] MEDS: HYDROcodone/APAP 10-325MG 1 EACH TAB PO PRN (16:23)
[2021-05-12] MEDS: hydrOXYzine pamoate 25 MG CAP PO SCH ×2 (16:25→21:27)
[2021-05-12] MEDS ORDERED: CEFDINIR 300 MG CAP PO SCH (21:00)
[2021-05-12] MEDS: ALBUTEROL HFA INHALER INHALATION PRN (21:12)
[2021-05-12] MEDS: SYMBICORT 160-4.5 MCG INHALER INHALATION SCH (21:12)
[2021-05-12] MEDS: busPIRone HCl 10 MG TAB PO SCH (21:27)
[2021-05-12] MEDS: MIRTAZAPINE 45 MG TABLET PO SCH (21:27)
[2021-05-12] MEDS: PANTOPRAZOLE 40 MG TABLET PO SCH (21:28)
[2021-05-12] MEDS: FLUTICASONE 50MCG/SPRAY NASAL 16GM EA NOSTRIL SCH (21:57)
[2021-05-13] MEDS: BUTALB/APAP/CAFF 50-325-40MG TAB PO PRN ×2 (02:21→17:44)
[2021-05-13] MEDS: SODIUM CHLORIDE 0.9% 1,000 ML IV SCH ×2 (02:57→19:43)
[2021-05-13] MEDS: LEVOTHYROXINE 88 MCG TAB PO SCH (05:51)
[2021-05-13] MEDS: HYDROcodone/APAP 10-325MG 1 EACH TAB PO PRN (05:53)
[2021-05-13] MEDS: ALBUTEROL HFA INHALER INHALATION PRN ×3 (08:36→19:48)
[2021-05-13] MEDS: SYMBICORT 160-4.5 MCG INHALER INHALATION SCH ×2 (08:36→19:48)
[2021-05-13 08:43] LABS: ALT 35 U/L (4-34); AST 29 U/L (14-36); African American GFR (CKD) 37 (>60 ml/min/1.73 sqM); Albumin 3.5 g/dL (3.5-5.0); Albumin/Globulin Ratio 1.1; Alkaline Phosphatase 285 U/L (38-126); Anion Gap 11 mmol/L; Blood Urea Nitrogen 30 mg/dL (7-17); Calcium 8.7 mg/dL (8.4-10.2); Carbon Dioxide 18 mmol/L (22-30); Chloride 108 mmol/L (98-107); Globulin 3.3 g/dL; Glucose 99 mg/dL (74-99); Non-African American GFR(CKD) 32 (>60 ml/min/1.73 sqM); Potassium 4.3 mmol/L (3.5-5.1); Sodium 137 mmol/L (137-145); Total Bilirubin 0.4 mg/dL (0.2-1.3); Total Protein 6.8 g/dL (6.3-8.2)
[2021-05-13] MEDS: busPIRone HCl 10 MG TAB PO SCH ×2 (10:32→20:22)
[2021-05-13] MEDS: FUROSEMIDE 20 MG TAB PO SCH (10:33)
[2021-05-13] MEDS: buPROPion XL 300 MG TAB.ER.24H PO SCH (10:33)
[2021-05-13] MEDS: ASPIRIN 81 MG PO SCH (10:33)
[2021-05-13] MEDS: buPROPion XL 150 MG TAB.ER.24H PO SCH (10:33)
[2021-05-13] MEDS: THIAMINE 100 MG TAB PO SCH (10:33)
[2021-05-13] MEDS: hydrOXYzine pamoate 25 MG CAP PO SCH ×3 (10:33→21:05)
[2021-05-13] MEDS: PANTOPRAZOLE 40 MG TABLET PO SCH ×2 (10:34→20:22)
[2021-05-13] MEDS: LORATADINE 10 MG TAB PO SCH (10:34)
[2021-05-13] MEDS: FLUTICASONE 50MCG/SPRAY NASAL 16GM EA NOSTRIL SCH ×2 (10:34→20:23)
[2021-05-13 10:51] LABS: Basophils # (A) 0.05 X 10*3/uL (0.00-0.10); Basophils % (A) 0.5 %; Eosinophils # (A) 0.48 X 10*3/uL (0.04-0.35); Eosinophils % (A) 4.7 %; HGB 8.5 g/dL (12.0-15.0); Lymphocytes # (A) 1.89 X 10*3/uL (0.90-5.00); Lymphocytes % (A) 18.5 %; MCH 25.6 pg (27.0-32.0); MCHC 28.3 g/dL (32.0-37.0); MCV 90.4 fL (80.0-97.0); Mean Platelet Volume 9.6 fL (9.5-12.2); Monocytes # (A) 1.17 X 10*3/uL (0.20-1.00); Monocytes % (A) 11.4 %; Neutrophils % (A) 64.5 %; Platelet Count 444 X 10*3/uL (140-440); RBC 3.32 X 10*6/uL (4.10-5.20); RDW 20.9 % (11.5-14.5); WBC 10.23 X 10*3/uL (4.50-10.00)
[2021-05-13] MEDS ORDERED: oxyCODONE-APAP 7.5-325MG 1 EACH TAB PO PRN (11:00)
[2021-05-13] MEDS: FERROUS SULFATE 325 MG TAB PO SCH (12:18)
[2021-05-13] MEDS: POTASSIUM CHLORIDE ER 10 MEQ TAB.ER.PRT PO SCH (12:18)
[2021-05-13] MEDS: oxyCODONE-APAP 5-325MG 1 EACH TAB PO PRN ×2 (12:19→20:22)
--- NOTE | 2021-05-13 14:16 | P.HPIM ---
History of Present Illness H&P Date: 05/12/21 Louise Sutton, she is a 76-year-old female who presented to [facility] emergency room with a chief complaint of loss of PICC line and having difficulty scheduling PICC line as outpatient, she was without TPN for 3 days, she was evaluated in the emergency room she had evidence of dehydration was acute kidney injury, BUN was 44 and creatinine 1.83 she also had evidence of leukocytosis with white blood count of 13.3 and evidence of anemia was hemoglobin of 9.3. Patient was recently admitted to [facility] with pneumonia she was discharged home on oral Cefdinir. Patient is able to take yogurt and applesauce orally but is not able to meet her daily caloric requirements, she is dependent on TPN which she received daily at home. 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 History of Any Multi-Drug Resistant Organisms: None Reported Past Surgical History: Back Surgery, Bowel Resection, Hysterectomy, Joint Replacement Additional Past Surgical History / Comment(s): LOWER BACK SURGERY lamenectomy/discetomy then had a revison of that sx. 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, nasal sx d/t broken nose, colonoscopy/egd, PAIN CLINIC PROCEDURES, PORT A CATH INSERTION, LT ADEOLA, left hip replacement Past Anesthesia/Blood Transfusion Reactions: No Reported Reaction Additional Past Anesthesia/Blood Transfusion Reaction / Comment(s): PT RECIEVED BLOOD TRANSFUSIONS AFTER STOMACH SURGERY Past Psychological History: Anxiety, Depression, Panic Disorder Smoking Status: Never smoker Past Alcohol Use History: None Reported Past Drug Use History: None Reported - Past Family History Father Family Medical History: Cancer, Coronary Artery Disease (CAD) Additional Family Medical History / Comment(s): FATHER HAD BLADDER AND KIDNEY CANCER. FATHER HAD TB WHEN HE WAS A CHILD .FATHER AT AGE 87. Mother Family Medical History: Cancer Additional Family Medical History / Comment(s): MOTHER AT AGE 58 OF OVARIAN CANCER. Medications and Allergies Home Medications Medication Instructions Recorded Confirmed Type Ferrous Sulfate [Iron (65 MG 325 mg PO DAILY@1200 11/06/15 05/12/21 History Elemental)] Levothyroxine Sodium [Synthroid] 88 mcg PO DAILY 06/07/19 05/12/21 History calcitrioL [Calcitriol] 1 mcg PO MOWEFR 06/07/19 05/12/21 History busPIRone HCL [Buspar] 30 mg PO BID 04/14/20 05/12/21 History Potassium Chloride ER [K-Dur 10] 30 meq PO DAILY@1200 04/18/20 05/12/21 History hydrOXYzine pamoate [hydrOXYzine 25 mg PO TID 04/18/20 05/12/21 History PAMOATE] Pantoprazole Sodium [Protonix] 40 mg PO BID 30 Days #60 tablet. 04/27/20 05/12/21 Rx Butalb/APAP/Caff 50-325-40Mg 1 tab PO BID PRN 06/30/20 05/12/21 History [Fioricet 50-325-40] buPROPion XL [Wellbutrin XL] 150 mg PO DAILY 11/04/20 05/12/21 History Furosemide [Lasix] 20 mg PO DAILY #6 tab 12/13/20 05/12/21 Rx HYDROcodone/APAP 10-325MG [[place] 1 tab PO BID PRN 12/13/20 05/12/21 History 10-325] fentaNYL 75MCG/HR PATCH [Duragesic 1 patch TRANSDERM Q72H 3 Days #3 12/13/20 05/12/21 Rx 75MCG/HR] patch Tpn 1 dose IV DAILY@1900 02/20/21 05/12/21 History buPROPion XL [Wellbutrin XL] 300 mg PO DAILY 02/20/21 05/12/21 History Albuterol Sulfate [Albuterol 2 puff INHALATION RT-Q6H PRN 04/07/21 05/12/21 History Sulfate Hfa] Budesonide/Formoterol Fumarate 2 puff INHALATION RT-BID 04/07/21 05/12/21 History [Symbicort 160-4.5 Mcg Inhaler] Fluticasone Nasal [place] [Flonase 2 spr EA NOSTRIL BID 04/07/21 05/12/21 History Nasal [place]] Loratadine [Claritin] 10 mg PO DAILY 04/07/21 05/12/21 History Mirtazapine [Remeron] 45 mg PO HS 04/07/21 05/12/21 History Benzonatate [Tessalon Perles] 100 mg PO TID PRN 05/04/21 05/12/21 History SUMAtriptan succinate [Imitrex] 50 mg PO BID PRN 05/04/21 05/12/21 History Thiamine [Vitamin B-1] 100 mg PO DAILY 05/04/21 05/12/21 History Aspirin EC [Ecotrin Low Dose] 81 mg PO DAILY 05/12/21 05/12/21 History Allergies Allergy/AdvReac Type Severity Reaction Status Date / Time denosumab [From Prolia] Allergy SEVERE Verified 05/12/21 11:56 CALCIUM LOSS morphine AdvReac Confusion Verified 05/12/21 11:56 DUST Allergy Itching Uncoded 05/12/21 11:56 MOLDS Allergy Itching Uncoded 05/12/21 11:56 Physical Exam Vitals: Vital Signs Temp Pulse Resp BP Pulse Ox 05/12/21 15:02 91 85 H 142/91 98 05/12/21 12:35 96 18 152/82 95 05/12/21 10:35 97.9 F 110 H 20 158/83 99 Intake and Output 05/12/21 05/12/21 05/12/21 06:59 14:59 22:59 Other: Weight 40.823 kg In general patient is alert and oriented x 3 in no distress HEENT head normocephalic and atraumatic Neck is supple no JVD no goiter no lymphadenopathy no carotid bruit Chest examination is clear to auscultation no crackles no wheezing Cardiac exam reveals regular heart sounds S1 and S2 no gallops no murmurs Abdomen is soft nontender no organomegaly with normal bowel sounds Extremity exam reveals no edema no cyanosis or clubbing Neurological examination reveals no gross focal deficits Results CBC & Chem 7: 05/13/21 08:09 05/13/21 08:09 Labs: Abnormal Lab Results - Last 24 Hours (Table) 05/12/21 05/12/21 Range/Units 11:47 11:47 WBC 13.3 H (3.8-10.6) k/uL RBC 3.51 L (3.80-5.40) m/uL Hgb 9.3 L (11.4-16.0) gm/dL Hct 31.0 L (34.0-46.0) % MCHC 30.1 L (31.0-37.0) g/dL RDW 20.6 H (11.5-15.5) % Plt Count 465 H (150-450) k/uL Neutrophils # 11.6 H (1.3-7.7) k/uL Lymphocytes # 0.7 L (1.0-4.8) k/uL BUN 44 H (7-17) mg/dL Creatinine 1.83 H (0.52-1.04) mg/dL Glucose 121 H (74-99) mg/dL Assessment and Plan Plan: Loss of PICC line Will consult radiology for PICC line placement Evidence of dehydration was acute kidney injury was elevated BUN at 44 creati nine 1.83 patient will receive normal saline until her PICC line is started and she will be started back on TPN Recent admission with pneumonia, patient received IV antibiotic in the hospital and was discharged home on oral Cefdinir. Recent COVID-19 infection Underlying history of hypothyroidism Underlying history of chronic back pain with history of laminectomy Underlying history of bowel obstruction Underlying history of anxiety and depression Underlying history of severe protein calorie malnutrition Plan at this time is to admit to medical floor continue home medications Consult radiology for PICC line placement Give IV fluid and monitor kidney function Resume TPN once PICC line is in place Possible discharge to home soon in the next 1-2 days
--- NOTE | 2021-05-13 14:20 | P.PN ---
Subjective Progress Note Date: 05/13/21 Louise Sutton, she is a 76-year-old female who presented to [facility] emergency room with a chief complaint of loss of PICC line and having difficulty scheduling PICC line as outpatient, she was without TPN for 3 days, she was evaluated in the emergency room she had evidence of dehydration was acute kidney injury, BUN was 44 and creatinine 1.83 she also had evidence of leukocytosis with white blood count of 13.3 and evidence of anemia was hemoglobin of 9.3. Patient was recently admitted to [facility] with pneumonia she was discharged home on oral Cefdinir. Patient is able to take yogurt and applesauce orally but is not able to meet her daily caloric requirements, she is dependent on TPN which she received daily at home. On 05/13/2021 patient was seen and examined on the medical floor she is alert and oriented 3 in no apparent distress there is no fever or chills no headache or dizziness no chest pain no shortness of breath no cough no nausea or vomiting no abdominal pain no diarrhea and no urinary symptoms. At this time we are awaiting PICC line placement. Apparently patient was not able to tolerate oral antibiotics at home, will discontinue cefdinir and start Rocephin 1 g IV every 24 hours, will make arrangement for home antibiotics at the time of discharge. Will restart TPN as at home as soon as PICC line is inserted. Objective - Vital Signs Vital signs: Vital Signs Temp 98.0 F 05/13/21 07:00 Pulse 87 05/13/21 08:00 Resp 18 05/13/21 08:00 BP 132/74 05/13/21 07:00 Pulse Ox 98 05/13/21 07:00 Intake & Output 05/12/21 05/13/21 05/13/21 18:59 06:59 18:59 Intake Total 118 500 118 Balance 118 500 118 Weight 40.823 kg Intake: Oral 118 500 118 Other: Voiding Method Toilet Toilet # Voids 2 - Exam In general patient is alert and oriented x 3 in no distress HEENT head normocephalic and atraumatic Neck is supple no JVD no goiter no lymphadenopathy no carotid bruit Chest examination is clear to auscultation no crackles no wheezing Cardiac exam reveals regular heart sounds S1 and S2 no gallops no murmurs Abdomen is soft nontender no organomegaly with normal bowel sounds Extremity exam reveals no edema no cyanosis or clubbing Neurological examination reveals no gross focal deficits - Labs CBC & Chem 7: 05/13/21 08:09 05/13/21 08:09 Labs: Abnormal Lab Results - Last 24 Hours (Table) 05/13/21 05/13/21 Range/Units 08:09 08:09 WBC 10.23 H (4.50-10.00) X 10*3/uL RBC 3.32 L (4.10-5.20) X 10*6/uL Hgb 8.5 L (12.0-15.0) g/dL Hct 30.0 L (37.2-46.3) % MCH 25.6 L (27.0-32.0) pg MCHC 28.3 L (32.0-37.0) g/dL RDW 20.9 H (11.5-14.5) % Plt Count 444 H (140-440) X 10*3/uL Monocytes # 1.17 H (0.20-1.00) X 10*3/uL Eosinophils # 0.48 H (0.04-0.35) X 10*3/uL Chloride 108 H (98-107) mmol/L Carbon Dioxide 18 L (22-30) mmol/L BUN 30 H (7-17) mg/dL Creatinine 1.59 H (0.52-1.04) mg/dL ALT 35 H (4-34) U/L Alkaline Phosphatase 285 H (38-126) U/L Assessment and Plan Plan: Loss of PICC line Will consult radiology for PICC line placement Evidence of dehydration was acute kidney injury was elevated BUN at 44 creatinine 1.83 patient will receive normal saline until her PICC line is started and she will be started back on TPN Recent admission with pneumonia, patient received IV antibiotic in the hospital and was discharged home on oral Cefdinir. Recent COVID-19 infection Underlying history of hypothyroidism Underlying history of chronic back pain with history of laminectomy Underlying history of bowel obstruction Underlying history of anxiety and depression Underlying history of severe protein calorie malnutrition Plan at this time is to admit to medical floor continue home medications Consult radiology for PICC line placement Give IV fluid and monitor kidney function Resume TPN once PICC line is in place Possible discharge to home tomorrow.
[2021-05-13 14:50] VITALS: BMI 16.5
[2021-05-13] MEDS: SODIUM CHLORIDE 0.9% 1,000 ML IV STA ×2 (17:37→17:46)
[2021-05-13 20:21] VITALS: RESP 16
[2021-05-13] MEDS: MIRTAZAPINE 45 MG TABLET PO SCH (20:22)
[2021-05-14] MEDS: oxyCODONE-APAP 5-325MG 1 EACH TAB PO PRN ×3 (02:35→15:03)
[2021-05-14] MEDS: SODIUM CHLORIDE 0.9% 1,000 ML IV SCH (05:48)
[2021-05-14] MEDS: LEVOTHYROXINE 88 MCG TAB PO SCH (05:48)
[2021-05-14] MEDS: SYMBICORT 160-4.5 MCG INHALER INHALATION SCH (08:42)
[2021-05-14] MEDS: ALBUTEROL HFA INHALER INHALATION PRN (08:42)
[2021-05-14] MEDS: THIAMINE 100 MG TAB PO SCH (09:03)
[2021-05-14] MEDS: ASPIRIN 81 MG PO SCH (09:03)
[2021-05-14] MEDS: FUROSEMIDE 20 MG TAB PO SCH (09:03)
[2021-05-14] MEDS: PANTOPRAZOLE 40 MG TABLET PO SCH (09:03)
[2021-05-14] MEDS: LORATADINE 10 MG TAB PO SCH (09:03)
[2021-05-14] MEDS: FLUTICASONE 50MCG/SPRAY NASAL 16GM EA NOSTRIL SCH (09:07)
[2021-05-14] MEDS: busPIRone HCl 10 MG TAB PO SCH (10:36)
[2021-05-14] MEDS: hydrOXYzine pamoate 25 MG CAP PO SCH ×2 (10:36→17:42)
[2021-05-14] MEDS: buPROPion XL 300 MG TAB.ER.24H PO SCH (10:36)
[2021-05-14] MEDS: buPROPion XL 150 MG TAB.ER.24H PO SCH (10:36)
[2021-05-14] MEDS: BUTALB/APAP/CAFF 50-325-40MG TAB PO PRN (11:15)
[2021-05-14] MEDS ORDERED: LIDOCAINE 1% INJ 10MG/ML (20 ML MDV) ONE (14:20)
[2021-05-14] MEDS ORDERED: LIDOCAINE 1% INJ 10MG/ML (20 ML MDV) SQ ONE (14:27)
[2021-05-14] MEDS: POTASSIUM CHLORIDE ER 10 MEQ TAB.ER.PRT PO SCH (15:05)
[2021-05-14] MEDS: FERROUS SULFATE 325 MG TAB PO SCH (15:05)
[2021-05-14 16:29] VITALS: BP 122/69; PULSE 84; TEMP 98.2
--- NOTE | 2021-05-14 17:00 | P.DS ---
Providers Date of admission: 05/14/21 09:11 Expected date of discharge: 05/14/21 Attending physician: Palmer Desir Consults: 05/13/21 14:54 Consult Physician Routine Consulting Provider: Nohelia Long Consult Reason/Comments: PICC line clearance Do you want consulting provider notified?: Yes Primary care physician: [facility] Course: Diagnosis on discharge: Loss of PICC line Will consult radiology for PICC line placement Evidence of dehydration with acute kidney injury was elevated BUN at 44 creatinine 1.83 patient will receive normal saline until her PICC line is started and she will be started back on TPN Recent admission with pneumonia, patient received IV antibiotic in the hospital and was discharged home on oral Cefdinir. Recent COVID-19 infection Underlying history of hypothyroidism Underlying history of chronic back pain with history of laminectomy Underlying history of bowel obstruction Underlying history of anxiety and depression Underlying history of severe protein calorie malnutrition Hospital course: Louise Sutton, she is a 76-year-old female who presented to [facility] emergency room with a chief complaint of loss of PICC line and having difficulty scheduling PICC line as outpatient, she was without TPN for 3 days, she was evaluated in the emergency room she had evidence of dehydration was acute kidney injury, BUN was 44 and creatinine 1.83 she also had evidence of leukocytosis with white blood count of 13.3 and evidence of anemia was hemog lobin of 9.3. Patient was recently admitted to [facility] with pneumonia she was discharged home on oral Cefdinir. Patient is able to take yogurt and applesauce orally but is not able to meet her daily caloric requirements, she is dependent on TPN which she received daily at home. On 05/13/2021 patient was seen and examined on the medical floor she is alert and oriented 3 in no apparent distress there is no fever or chills no headache or dizziness no chest pain no shortness of breath no cough no nausea or vomiting no abdominal pain no diarrhea and no urinary symptoms. At this time we are awaiting PICC line placement. Apparently patient was not able to tolerate oral antibiotics at home, will discontinue cefdinir and start Rocephin 1 g IV every 24 hours, will make arrangement for home antibiotics at the time of discharge. Will restart TPN as at home as soon as PICC line is inserted. On 05/14/2021 patient was seen and examined on the medical floor she is alert and oriented 3 in no apparent distress there is no fever or chills no headache or dizziness no chest pain no shortness of breath no cough no nausea or vomiting no abdominal pain no diarrhea no blood in the stools no burning with urination no frequency or urgency and no hematuria. She underwent PICC line placement today by interventional radiology, she will be discharged to home today. Patient was not able to tolerate oral antibiotics, she was given a prescription for Rocephin 1 g IV daily for 10 more days She will resume TPN at home tonight Plan - Discharge Summary New Discharge Prescriptions: New cefTRIAXone [Rocephin] 1 gm IVPB Q24HR each Continue Ferrous Sulfate [Iron (65 MG Elemental)] 325 mg PO DAILY@1200 calcitrioL [Calcitriol] 1 mcg PO MOWEFR Levothyroxine Sodium [Synthroid] 88 mcg PO DAILY busPIRone HCL [Buspar] 30 mg PO BID hydrOXYzine pamoate [hydrOXYzine PAMOATE] 25 mg PO TID Potassium Chloride ER [K-Dur 10] 30 meq PO DAILY@1200 Pantoprazole Sodium [Protonix] 40 mg PO BID 30 Days #60 tablet. Butalb/APAP/Caff 50-325-40Mg [Fioricet 50-325-40] 1 tab PO BID PRN PRN Reason: Migraine Headache buPROPion XL [Wellbutrin XL] 150 mg PO DAILY HYDROcodone/APAP 10-325MG [[place] 10-325] 1 tab PO BID PRN PRN Reason: Pain fentaNYL 75MCG/HR PATCH [Duragesic 75MCG/HR] 1 patch TRANSDERM Q72H 3 Days #3 patch Furosemide [Lasix] 20 mg PO DAILY #6 tab Mirtazapine [Remeron] 45 mg PO HS Albuterol Sulfate [Albuterol Sulfate Hfa] 2 puff INHALATION RT-Q6H PRN PRN Reason: Shortness Of Breath Benzonatate [Tessalon Perles] 100 mg PO TID PRN PRN Reason: Cough buPROPion XL [Wellbutrin XL] 300 mg PO DAILY Tpn 1 dose IV DAILY@1900 Budesonide/Formoterol Fumarate [Symbicort 160-4.5 Mcg Inhaler] 2 puff INHALATION RT-BID Fluticasone Nasal [place] [Flonase Nasal [place]] 2 spr EA NOSTRIL BID Loratadine [Claritin] 10 mg PO DAILY Thiamine [Vitamin B-1] 100 mg PO DAILY SUMAtriptan succinate [Imitrex] 50 mg PO BID PRN PRN Reason: Migraine Headache Aspirin EC [Ecotrin Low Dose] 81 mg PO DAILY Discharge Medication List Ferrous Sulfate [Iron (65 MG Elemental)] 325 mg PO DAILY@1200 11/06/15 [History] Levothyroxine Sodium [Synthroid] 88 mcg PO DAILY 06/07/19 [History] calcitrioL [Calcitriol] 1 mcg PO MOWEFR 06/07/19 [History] busPIRone HCL [Buspar] 30 mg PO BID 04/14/20 [History] Potassium Chloride ER [K-Dur 10] 30 meq PO DAILY@1200 04/18/20 [History] hydrOXYzine pamoate [hydrOXYzine PAMOATE] 25 mg PO TID 04/18/20 [History] Pantoprazole Sodium [Protonix] 40 mg PO BID 30 Days #60 tablet. 04/27/20 [Rx] Butalb/APAP/Caff 50-325-40Mg [Fioricet 50-325-40] 1 tab PO BID PRN 06/30/20 [History] buPROPion XL [Wellbutrin XL] 150 mg PO DAILY 11/04/20 [History] Furosemide [Lasix] 20 mg PO DAILY #6 tab 12/13/20 [Rx] HYDROcodone/APAP 10-325MG [[place] 10-325] 1 tab PO BID PRN 12/13/20 [History] fentaNYL 75MCG/HR PATCH [Duragesic 75MCG/HR] 1 patch TRANSDERM Q72H 3 Days #3 patch 12/13/20 [Rx] Tpn 1 dose IV DAILY@1900 02/20/21 [History] buPROPion XL [Wellbutrin XL] 300 mg PO DAILY 02/20/21 [History] Albuterol Sulfate [Albuterol Sulfate Hfa] 2 puff INHALATION RT-Q6H PRN 04/07/21 [History] Budesonide/Formoterol Fumarate [Symbicort 160-4.5 Mcg Inhaler] 2 puff INHALATION RT-BID 04/07/21 [History] Fluticasone Nasal [place] [Flonase Nasal [place]] 2 spr EA NOSTRIL BID 04/07/21 [History] Loratadine [Claritin] 10 mg PO DAILY 04/07/21 [History] Mirtazapine [Remeron] 45 mg PO HS 04/07/21 [History] Benzonatate [Tessalon Perles] 100 mg PO TID PRN 05/04/21 [History] SUMAtriptan succinate [Imitrex] 50 mg PO BID PRN 05/04/21 [History] Thiamine [Vitamin B-1] 100 mg PO DAILY 05/04/21 [History] Aspirin EC [Ecotrin Low Dose] 81 mg PO DAILY 05/12/21 [History] cefTRIAXone [Rocephin] 1 gm IVPB Q24HR each 05/14/21 [Rx] Follow up Appointment(s)/Referral(s): Ale Eli MD [Primary Care Provider] - 1-2 days [facility], [NON-STAFF] - 1-2 Days Activity/Diet/Wound Care/Special Instructions: On license of [facility] ([phone]) can be reached if any questions regarding your TPN and IV antibiotics.
--- NOTE | 2021-05-14 17:53 | P.NPCON ---
History of Present Illness - Reason for Consult acute renal failure, chronic renal failure - History of Present Illness Patient is a 76-year-old female with history of chronic kidney disease NKF stage IIIb with baseline creatinine around 1.5 mg/dL patient has a history of forearm dysphagia with episodes of aspiration and prerenal acute kidney injury and has been maintained on TPN on an outpatient basis. She did have a PICC line which fell off. Patient states that it may have been pulled off. And new PICC line needs to be placed however GFR was low therefore nephrology has been consulted. Patient's creatinine was at 1.8 mg/dL. This has now improved to 1.5 which is her baseline. No other complaints of fever chills nausea vomiting abdominal pain or diarrhea. History of recent COVID pneumonia last month. 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 History of Any Multi-Drug Resistant Organisms: None Reported Past Surgical History: Back Surgery, Bowel Resection, Hysterectomy, Joint Replacement Additional Past Surgical History / Comment(s): LOWER BACK SURGERY lamenectomy/discetomy then had a revison of that sx. 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, nasal sx d/t broken nose, colonoscopy/egd, PAIN CLINIC PROCEDURES, PORT A CATH INSERTION, LT ADEOLA, left hip replacement Past Anesthesia/Blood Transfusion Reactions: No Reported Reaction Additional Past Anesthesia/Blood Transfusion Reaction / Comment(s): PT RECIEVED BLOOD TRANSFUSIONS AFTER STOMACH SURGERY Past Psychological History: Anxiety, Depression, Panic Disorder Smoking Status: Never smoker Past Alcohol Use History: None Reported Past Drug Use History: None Reported - Past Family History Father Family Medical History: Cancer, Coronary Artery Disease (CAD) Additional Family Medical History / Comment(s): FATHER HAD BLADDER AND KIDNEY CANCER. FATHER HAD TB WHEN HE WAS A CHILD .FATHER AT AGE 87. Mother Family Medical History: Cancer Additional Family Medical History / Comment(s): MOTHER AT AGE 58 OF OVARIAN CANCER. Medications and Allergies Home Medications Medication Instructions Recorded Confirmed Type Ferrous Sulfate [Iron (65 MG 325 mg PO DAILY@1200 11/06/15 05/12/21 History Elemental)] Levothyroxine Sodium [Synthroid] 88 mcg PO DAILY 06/07/19 05/12/21 History calcitrioL [Calcitriol] 1 mcg PO MOWEFR 06/07/19 05/12/21 History busPIRone HCL [Buspar] 30 mg PO BID 04/14/20 05/12/21 History Potassium Chloride ER [K-Dur 10] 30 meq PO DAILY@1200 04/18/20 05/12/21 History hydrOXYzine pamoate [hydrOXYzine 25 mg PO TID 04/18/20 05/12/21 History PAMOATE] Pantoprazole Sodium [Protonix] 40 mg PO BID 30 Days #60 tablet. 04/27/20 05/12/21 Rx Butalb/APAP/Caff 50-325-40Mg 1 tab PO BID PRN 06/30/20 05/12/21 History [Fioricet 50-325-40] buPROPion XL [Wellbutrin XL] 150 mg PO DAILY 11/04/20 05/12/21 History Furosemide [Lasix] 20 mg PO DAILY #6 tab 12/13/20 05/12/21 Rx HYDROcodone/APAP 10-325MG [[place] 1 tab PO BID PRN 12/13/20 05/12/21 History 10-325] fentaNYL 75MCG/HR PATCH [Duragesic 1 patch TRANSDERM Q72H 3 Days #3 12/13/20 05/12/21 Rx 75MCG/HR] patch Tpn 1 dose IV DAILY@1900 02/20/21 05/12/21 History buPROPion XL [Wellbutrin XL] 300 mg PO DAILY 02/20/21 05/12/21 History Albuterol Sulfate [Albuterol 2 puff INHALATION RT-Q6H PRN 04/07/21 05/12/21 History Sulfate Hfa] Budesonide/Formoterol Fumarate 2 puff INHALATION RT-BID 04/07/21 05/12/21 History [Symbicort 160-4.5 Mcg Inhaler] Fluticasone Nasal [place] [Flonase 2 spr EA NOSTRIL BID 04/07/21 05/12/21 History Nasal [place]] Loratadine [Claritin] 10 mg PO DAILY 04/07/21 05/12/21 History Mirtazapine [Remeron] 45 mg PO HS 04/07/21 05/12/21 History Benzonatate [Tessalon Perles] 100 mg PO TID PRN 05/04/21 05/12/21 History SUMAtriptan succinate [Imitrex] 50 mg PO BID PRN 05/04/21 05/12/21 History Thiamine [Vitamin B-1] 100 mg PO DAILY 05/04/21 05/12/21 History Aspirin EC [Ecotrin Low Dose] 81 mg PO DAILY 05/12/21 05/12/21 History cefTRIAXone [Rocephin] 1 gm IVPB Q24HR each 05/14/21 Rx Allergies Allergy/AdvReac Type Severity Reaction Status Date / Time denosumab [From Prolia] Allergy SEVERE Verified 05/12/21 11:56 CALCIUM LOSS morphine AdvReac Confusion Verified 05/12/21 11:56 DUST Allergy Itching Uncoded 05/12/21 11:56 MOLDS Allergy Itching Uncoded 05/12/21 11:56 Physical Exam Vitals: Vital Signs Temp Pulse Pulse Resp BP BP Pulse Ox 05/14/21 16:28 98.2 F 84 16 122/69 99 05/14/21 14:00 16 05/14/21 08:00 86 16 05/14/21 07:00 97.9 F 86 16 132/72 98 05/14/21 02:00 96 16 05/14/21 01:42 97.6 F 88 16 129/79 99 05/13/21 19:55 98.4 F 94 16 129/72 99 05/13/21 19:45 84 17 Intake and Output 05/14/21 05/14/21 05/14/21 06:59 14:59 22:59 Intake Total 500 Balance 500 Intake: Oral 500 Other: Voiding Method Toilet Toilet # Voids 2 2 # Bowel Movements 2 Patient is comfortable awake not in any acute distress. Alert oriented 3. Examination of the heart S1 and S2 Examination of the lungs bilateral breath sounds are heard Abdomen is soft nontender Examination of lower extremities shows no significant edema. LAB CLERK exam grossly intact Results - Lab Results Most recent lab results Calcium 8.7 mg/dL (8.4-10.2) 05/13/21 08:09 Magnesium 2.3 mg/dL (1.6-2.3) 05/12/21 11:47 05/13/21 08:09 05/13/21 08:09 Assessment and Plan Assessment: 1. Chronic kidney disease NKF stage IIIB secondary to nephrosclerosis baseline creatinine around 1.3-1.5 mg/dL. 2. Acute kidney injury prerenal currently improved 3. Mild metabolic acidosis associated with CK D and IV fluids expect improvement once TPN will be started. 4. Recent Covid pneumonia in March 5. Straight of bowel obstruction Plan: Okay to proceed with PICC line continue with TPN continue to encourage increase oral intake as tolerated. Follow-up as outpatient for CK D. DC normal saline once TPN is started
--- NOTE | 2021-05-15 08:52 | IR ---
PICC LINE PLACEMENT: HISTORY: TPN therapy PROCEDURE: Ultrasound and fluoroscopic guidance of PICC line placement. COMPLICATIONS: None ANESTHESIA: 1. 1% Lidocaine locally. FINDINGS/TECHNIQUE: The procedure was explained to the patient. The risks, complications, benefits and alternatives were discussed and any questions were answered. Informed consent was obtained. The patient was placed supine on the fluoroscopic table and prepped and draped in the usual sterile fash ion. Utilizing a 21 gauge needle and sonographic and fluoroscopic guidance, access in the right bas ilic vein was achieved and there is placement of a 0.018 guidewire. The vein is patent. A 5-Fr she ath was placed over the guidewire. The guidewire and dilator were removed and a 5-F. Double lumen PI CC line was placed through the sheath with the tip at the level of the SVC. The sheath was removed, the catheter was flushed and sutured into position. The patient was stable throughout the procedure and remained stable upon discharge from the Department of Radiology. The vein puncture was patent under ultrasound. A wilder scale image was obtained to document patency of the vein punctured. All elements of the maximal barrier technique were utilized. FLUOROSCOPY TIME: 2.5 minutes of fluoroscopy in 1 images IMPRESSION: Successful PICC double lumen line placement under ultrasound and fluoroscopic guidance.
== END 2021-05-14 18:42 | disposition home or self-care (01) | DRG 315 ==
LOC: EC 10:29 → 6NMEDSUR 13:13 → UNDODISOB 05-13 16:00 → OBSVTOIN 05-14 09:11
PROVIDERS: ADMIT Internal Medicine; ATTEND Internal Medicine
PROC: B548ZZA Ultrasonography of Superior Vena Cava, Guidance (ICD-10-PCS; 2021-05-14)
PROC: B5181ZA Fluoroscopy of Superior Vena Cava using Low Osmolar Contrast, Guidance (ICD-10-PCS; 2021-05-14)
PROC: 02HV33Z Insertion of Infusion Device into Superior Vena Cava, Percutaneous Approach (ICD-10-PCS; principal; 2021-05-14 09:15)
DX: T82.524A Displacement of infusion catheter, initial encounter (principal); N17.9 Acute kidney failure, unspecified; E87.2 Acidosis; N18.4 Chronic kidney disease, stage 4 (severe); K56.609 Unspecified intestinal obstruction, unspecified as to partial versus complete obstruction; K86.1 Other chronic pancreatitis; Z20.822 Contact with and (suspected) exposure to COVID-19; Z86.16 Personal history of COVID-19; D64.9 Anemia, unspecified; E03.9 Hypothyroidism, unspecified; E86.0 Dehydration; J30.89 Other allergic rhinitis; J45.909 Unspecified asthma, uncomplicated; K21.9 Gastro-esophageal reflux disease without esophagitis; F32.A Depression, unspecified; F41.0 Panic disorder [episodic paroxysmal anxiety]; I12.9 Hypertensive chronic kidney disease with stage 1 through stage 4 chronic kidney disease, or unspecified chronic kidney disease; J44.9 Chronic obstructive pulmonary disease, unspecified; Y71.2 Prosthetic and other implants, materials and accessory cardiovascular devices associated with adverse incidents; Z79.51 Long term (current) use of inhaled steroids; Z79.82 Long term (current) use of aspirin; Z79.890 Hormone replacement therapy; Z79.899 Other long term (current) drug therapy; Z86.73 Personal history of transient ischemic attack (TIA), and cerebral infarction without residual deficits; Z87.01 Personal history of pneumonia (recurrent); Z87.11 Personal history of peptic ulcer disease; Z90.3 Acquired absence of stomach [part of]; Z90.710 Acquired absence of both cervix and uterus; Z96.642 Presence of left artificial hip joint; Z88.5 Allergy status to narcotic agent; Z88.8 Allergy status to other drugs, medicaments and biological substances; Z87.19 Personal history of other diseases of the digestive system
CPT/HCPCS: 36415; 36573; 80048; 80053; 83735; 85025; 87635; 94640; 96361; 96375; 96376; 99285

== ENCOUNTER 2021-06-06 18:40 | Inpatient (IN) | payer MEDICARE, OTHER ==
[2021-06-06] MEDS ORDERED: SODIUM CHLORIDE 0.9% 500 ML 500 ML IV STA (19:44)
[2021-06-06] MEDS ORDERED: BUTALB/APAP/CAFF 50-325-40MG TAB PO STA (19:45)
--- NOTE | 2021-06-06 19:54 | ED ---
Weakness HPI - General Chief complaint: Weakness Stated complaint: Weak,Confused Time Seen by Provider: 06/06/21 19:31 Source: patient, RN notes reviewed Mode of arrival: wheelchair Limitations: no limitations - History of Present Illness Initial comments: Patient presents with generalized weakness. Patient is on total parenteral nutrition managed by her specialist at [facility]. Patient states that she has had a gastrectomy previously. Apparently had gastric ulcers. Patient states she is having a hard time hydrating and also days when she goes to drink. Patient states she was told to come here because her renal function was increased and that she was dehydrated. Patient is complaining of a headache which she gets chronically. This is unchanged from baseline headache. She denies any significant abdominal pain. No problems with urination. Patient says she vomited once today. Some lightheadedness, no fever or chills, no changes in vision or hearing, no sore throat or difficulty with speech, no neck pain, no chest pain or shortness of breath, no abdominal pain, no changes in urination or bowel movements, no numbness or tingling, no extremity pain, no skin rashes or lesions. MD Complaint: generalized weakness - Related Data Home Medications Medication Instructions Recorded Confirmed Ferrous Sulfate [Iron (65 MG 325 mg PO DAILY@1200 11/06/15 05/12/21 Elemental)] Levothyroxine Sodium [Synthroid] 88 mcg PO DAILY 06/07/19 05/12/21 calcitrioL [Calcitriol] 1 mcg PO MOWEFR 06/07/19 05/12/21 busPIRone HCL [Buspar] 30 mg PO BID 04/14/20 05/12/21 Potassium Chloride ER [K-Dur 10] 30 meq PO DAILY@1200 04/18/20 05/12/21 hydrOXYzine pamoate [hydrOXYzine 25 mg PO TID 04/18/20 05/12/21 PAMOATE] Butalb/APAP/Caff 50-325-40Mg 1 tab PO BID PRN 06/30/20 05/12/21 [Fioricet 50-325-40] buPROPion XL [Wellbutrin XL] 150 mg PO DAILY 11/04/20 05/12/21 HYDROcodone/APAP 10-325MG [[place] 1 tab PO BID PRN 12/13/20 05/12/21 10-325] Tpn 1 dose IV DAILY@1900 02/20/21 05/12/21 buPROPion XL [Wellbutrin XL] 300 mg PO DAILY 02/20/21 05/12/21 Albuterol Sulfate [Albuterol 2 puff INHALATION RT-Q6H PRN 04/07/21 05/12/21 Sulfate Hfa] Budesonide/Formoterol Fumarate 2 puff INHALATION RT-BID 04/07/21 05/12/21 [Symbicort 160-4.5 Mcg Inhaler] Fluticasone Nasal [place] [Flonase 2 spr EA NOSTRIL BID 04/07/21 05/12/21 Nasal [place]] Loratadine [Claritin] 10 mg PO DAILY 04/07/21 05/12/21 Mirtazapine [Remeron] 45 mg PO HS 04/07/21 05/12/21 Benzonatate [Tessalon [place]] 100 mg PO TID PRN 05/04/21 05/12/21 SUMAtriptan succinate [Imitrex] 50 mg PO BID PRN 05/04/21 05/12/21 Thiamine [Vitamin B-1] 100 mg PO DAILY 05/04/21 05/12/21 Aspirin EC [Ecotrin Low Dose] 81 mg PO DAILY 05/12/21 05/12/21 Previous Rx's Medication Instructions Recorded Pantoprazole Sodium [Protonix] 40 mg PO BID 30 Days #60 tablet. 04/27/20 Furosemide [Lasix] 20 mg PO DAILY #6 tab 12/13/20 fentaNYL 75MCG/HR PATCH [Duragesic 1 patch TRANSDERM Q72H 3 Days #3 12/13/20 75MCG/HR] patch cefTRIAXone [Rocephin] 1 gm IVPB Q24HR each 05/14/21 Allergies Allergy/AdvReac Type Severity Reaction Status Date / Time denosumab [From Prolia] Allergy SEVERE Verified 06/06/21 18:58 CALCIUM LOSS morphine AdvReac Confusion Verified 06/06/21 18:58 DUST Allergy Itching Uncoded 06/06/21 18:58 MOLDS Allergy Itching Uncoded 06/06/21 18:58 Review of Systems ROS Statement: Those systems with pertinent positive or pertinent negative responses have been documented in the HPI. ROS Other: All systems not noted in ROS Statement are negative. 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 History of Any Multi-Drug Resistant Organisms: None Reported Past Surgical History: Back Surgery, Bowel Resection, Hysterectomy, Joint Replacement Additional Past Surgical History / Comment(s): LOWER BACK SURGERY lamenectomy/discetomy then had a revison of that sx. 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, nasal sx d/t broken nose, colonoscopy/egd, PAIN CLINIC PROCEDURES, PORT A CATH INSERTION, LT ADEOLA, left hip replacement Past Anesthesia/Blood Transfusion Reactions: No Reported Reaction Additional Past Anesthesia/Blood Transfusion Reaction / Comment(s): PT RECIEVED BLOOD TRANSFUSIONS AFTER STOMACH SURGERY Past Psychological History: Anxiety, Depression, Panic Disorder Smoking Status: Never smoker Past Alcohol Use History: None Reported Past Drug Use History: None Reported - Past Family History Father Family Medical History: Cancer, Coronary Artery Disease (CAD) Additional Family Medical History / Comment(s): FATHER HAD BLADDER AND KIDNEY CANCER. FATHER HAD TB WHEN HE WAS A CHILD .FATHER AT AGE 87. Mother Family Medical History: Cancer Additional Family Medical History / Comment(s): MOTHER AT AGE 58 OF OVARIAN CANCER. General Exam - General Exam Comments Initial Comments: This is a thin and cachectic appearing 76-year-old female in minimal distress. Patient does not appear to be ill or toxic. Limitations: no limitations General appearance: alert, in distress Head exam: Present: atraumatic, normocephalic, normal inspection Eye exam: Present: normal appearance, PERRL, EOMI. Absent: scleral icterus, conjunctival injection, periorbital swelling ENT exam: Present: normal exam, normal oropharynx, mucous membranes moist, TM's normal bilaterally, normal external ear exam Neck exam: Present: normal inspection. Absent: tenderness, meningismus, lymphadenopathy Respiratory exam: Present: normal lung sounds bilaterally. Absent: respiratory distress, wheezes, rales, rhonchi, stridor Cardiovascular Exam: Present: regular rate, normal rhythm, normal heart sounds. Absent: systolic murmur, diastolic murmur, rubs, gallop, clicks GI/Abdominal exam: Present: soft, normal bowel sounds. Absent: distended, te nderness, guarding, rebound, rigid Extremities exam: Present: normal inspection, full ROM, normal capillary refill. Absent: tenderness, pedal edema, joint swelling, calf tenderness Back exam: Present: normal inspection Neurological exam: Present: alert, oriented X3, CN II-XII intact Psychiatric exam: Present: normal affect, normal mood Skin exam: Present: warm, dry, intact, normal color. Absent: rash Course Vital Signs 06/06/21 06/06/21 18:55 21:41 Temperature 98.6 F Pulse Rate 102 H 61 Respiratory 16 16 Rate Blood Pressure 148/83 136/52 O2 Sat by Pulse 97 99 Oximetry - Reevaluation(s) Reevaluation #1: 06/06/21 22:40 Medical record is reviewed Patient essentially unchanged. Patient is informed of results and questions answered Patient in no distress Medical Decision Making - Medical Decision Making Case discussed in detail with the ED attending physician. Discussed with the admitting physician Dr. Desir. Patient admitted for observation. We'll consult administrator social welfare and discharge planning. Plan for gentle rehydration. - Lab Data Result diagrams: 06/06/21 19:48 06/06/21 19:48 Lab Results 06/06/21 06/06/21 06/06/21 Range/Units 19:48 19:48 19:48 WBC 11.8 H (3.8-10.6) k/uL RBC 3.38 L (3.80-5.40) m/uL Hgb 9.1 L (11.4-16.0) gm/dL Hct 29.1 L (34.0-46.0) % MCV 86.1 (80.0-100.0) fL MCH 26.8 (25.0-35.0) pg MCHC 31.2 (31.0-37.0) g/dL RDW 18.6 H (11.5-15.5) % Plt Count 465 H (150-450) k/uL MPV 7.0 Neutrophils % 76 % Lymphocytes % 12 % Monocytes % 4 % Eosinophils % 5 % Basophils % 1 % Neutrophils # 9.0 H (1.3-7.7) k/uL Lymphocytes # 1.4 (1.0-4.8) k/uL Monocytes # 0.4 (0-1.0) k/uL Eosinophils # 0.5 (0-0.7) k/uL Basophils # 0.1 (0-0.2) k/uL Hypochromasia Marked Anisocytosis Slight PT 10.1 (9.0-12.0) sec INR 0.9 (<1.2) APTT 26.6 (22.0-30.0) sec Sodium (137-145) mmol/L Potassium (3.5-5.1) mmol/L Chloride (98-107) mmol/L Carbon Dioxide (22-30) mmol/L Anion Gap mmol/L BUN (7-17) mg/dL Creatinine (0.52-1.04) mg/dL Est GFR (CKD-EPI)AfAm (>60 ml/min/1.73 sqM) Est GFR (CKD-EPI)NonAf (>60 ml/min/1.73 sqM) Glucose (74-99) mg/dL Plasma Lactic Acid [place] (0.7-2.0) mmol/L Calcium (8.4-10.2) mg/dL Phosphorus (2.5-4.5) mg/dL Magnesium (1.6-2.3) mg/dL Total Bilirubin (0.2-1.3) mg/dL AST (14-36) U/L ALT (4-34) U/L Alkaline Phosphatase (38-126) U/L Troponin I (0.000-0.034) ng/mL Total Protein (6.3-8.2) g/dL Albumin (3.5-5.0) g/dL TSH (0.465-4.680) mIU/L Urine Color Light Yellow Urine Appearance Clear (Clear) Urine pH 5.5 (5.0-8.0) Ur Specific [place] 1.009 (1.001-1.035) Urine Protein Negative (Negative) Urine Glucose (UA) Negative (Negative) Urine Ketones Negative (Negative) Urine Blood Negative (Negative) Urine Nitrite Negative (Negative) Urine Bilirubin Negative (Negative) Urine Urobilinogen <2.0 (<2.0) mg/dL Ur Leukocyte Esterase Small H (Negative) Urine RBC 1 (0-5) /hpf Urine WBC 9 H (0-5) /hpf Ur Squamous Epith Cells 1 (0-4) /hpf Urine Bacteria Rare H (None) /hpf Coronavirus (PCR) (Not Detectd) 06/06/21 06/06/21 06/06/21 Range/Units 19:48 19:48 19:48 WBC (3.8-10.6) k/uL RBC (3.80-5.40) m/uL Hgb (11.4-16.0) gm/dL Hct (34.0-46.0) % MCV (80.0-100.0) fL MCH (25.0-35.0) pg MCHC (31.0-37.0) g/dL RDW (11.5-15.5) % Plt Count (150-450) k/uL MPV Neutrophils % % Lymphocytes % % Monocytes % % Eosinophils % % Basophils % % Neutrophils # (1.3-7.7) k/uL Lymphocytes # (1.0-4.8) k/uL Monocytes # (0-1.0) k/uL Eosinophils # (0-0.7) k/uL Basophils # (0-0.2) k/uL Hypochromasia Anisocytosis PT (9.0-12.0) sec INR (<1.2) APTT (22.0-30.0) sec Sodium 142 (137-145) mmol/L Potassium 4.1 (3.5-5.1) mmol/L Chloride 105 (98-107) mmol/L Carbon Dioxide 20 L (22-30) mmol/L Anion Gap 17 mmol/L BUN 44 H (7-17) mg/dL Creatinine 2.19 H (0.52-1.04) mg/dL Est GFR (CKD-EPI)AfAm 25 (>60 ml/min/1.73 sqM) Est GFR (CKD-EPI)NonAf 22 (>60 ml/min/1.73 sqM) Glucose 89 (74-99) mg/dL Plasma Lactic Acid [place] 0.8 (0.7-2.0) mmol/L Calcium 9.3 (8.4-10.2) mg/dL Phosphorus 4.5 (2.5-4.5) mg/dL Magnesium 1.8 (1.6-2.3) mg/dL Total Bilirubin 0.4 (0.2-1.3) mg/dL AST 31 (14-36) U/L ALT 23 (4-34) U/L Alkaline Phosphatase 277 H (38-126) U/L Troponin I <0.012 (0.000-0.034) ng/mL Total Protein 8.0 (6.3-8.2) g/dL Albumin 4.4 (3.5-5.0) g/dL TSH 13.900 H (0.465-4.680) mIU/L Urine Color Urine Appearance (Clear) Urine pH (5.0-8.0) Ur Specific [place] (1.001-1.035) Urine Protein (Negative) Urine Glucose (UA) (Negative) Urine Ketones (Negative) Urine Blood (Negative) Urine Nitrite (Negative) Urine Bilirubin (Negative) Urine Urobilinogen (<2.0) mg/dL Ur Leukocyte Esterase (Negative) Urine RBC (0-5) /hpf Urine WBC (0-5) /hpf Ur Squamous Epith Cells (0-4) /hpf Urine Bacteria (None) /hpf Coronavirus (PCR) (Not Detectd) 06/06/21 Range/Units 20:07 WBC (3.8-10.6) k/uL RBC (3.80-5.40) m/uL Hgb (11.4-16.0) gm/dL Hct (34.0-46.0) % MCV (80.0-100.0) fL MCH (25.0-35.0) pg MCHC (31.0-37.0) g/dL RDW (11.5-15.5) % Plt Count (150-450) k/uL MPV Neutrophils % % Lymphocytes % % Monocytes % % Eosinophils % % Basophils % % Neutrophils # (1.3-7.7) k/uL Lymphocytes # (1.0-4.8) k/uL Monocytes # (0-1.0) k/uL Eosinophils # (0-0.7) k/uL Basophils # (0-0.2) k/uL Hypochromasia Anisocytosis PT (9.0-12.0) sec INR (<1.2) APTT (22.0-30.0) sec Sodium (137-145) mmol/L Potassium (3.5-5.1) mmol/L Chloride (98-107) mmol/L Carbon Dioxide (22-30) mmol/L Anion Gap mmol/L BUN (7-17) mg/dL Creatinine (0.52-1.04) mg/dL Est GFR (CKD-EPI)AfAm (>60 ml/min/1.73 sqM) Est GFR (CKD-EPI)NonAf (>60 ml/min/1.73 sqM) Glucose (74-99) mg/dL Plasma Lactic Acid [place] (0.7-2.0) mmol/L Calcium (8.4-10.2) mg/dL Phosphorus (2.5-4.5) mg/dL Magnesium (1.6-2.3) mg/dL Total Bilirubin (0.2-1.3) mg/dL AST (14-36) U/L ALT (4-34) U/L Alkaline Phosphatase (38-126) U/L Troponin I (0.000-0.034) ng/mL Total Protein (6.3-8.2) g/dL Albumin (3.5-5.0) g/dL TSH (0.465-4.680) mIU/L Urine Color Urine Appearance (Clear) Urine pH (5.0-8.0) Ur Specific [place] (1.001-1.035) Urine Protein (Negative) Urine Glucose (UA) (Negative) Urine Ketones (Negative) Urine Blood (Negative) Urine Nitrite (Negative) Urine Bilirubin (Negative) Urine Urobilinogen (<2.0) mg/dL Ur Leukocyte Esterase (Negative) Urine RBC (0-5) /hpf Urine WBC (0-5) /hpf Ur Squamous Epith Cells (0-4) /hpf Urine Bacteria (None) /hpf Coronavirus (PCR) Not Detected (Not Detectd) Disposition Clinical Impression: Dehydration, Acute kidney injury, Failure to thrive in adult Disposition: ADMITTED IP TO THIS HOSP Condition: Stable Referrals: Ale Eli MD [Primary Care Provider] - 1-2 days Decision to Admit Reason: Admit from EC Decision Time: 22:41
[2021-06-06 20:14] LABS: Anisocytosis Slight; Basophils # (A) 0.1 k/uL (0-0.2); Basophils % (A) 1 %; Eosinophils # (A) 0.5 k/uL (0-0.7); Eosinophils % (A) 5 %; HCT 29.1 % (34.0-46.0); HGB 9.1 gm/dL (11.4-16.0); Hypochromasia Marked; Lymphocytes # (A) 1.4 k/uL (1.0-4.8); Lymphocytes % (A) 12 %; MCH 26.8 pg (25.0-35.0); MCHC 31.2 g/dL (31.0-37.0); MCV 86.1 fL (80.0-100.0); Monocytes # (A) 0.4 k/uL (0-1.0); Monocytes % (A) 4 %; Neutrophils % (A) 76 %; Platelet Count 465 k/uL (150-450); RBC 3.38 m/uL (3.80-5.40); RDW 18.6 % (11.5-15.5); WBC 11.8 k/uL (3.8-10.6)
[2021-06-06 20:25] LABS: Appearance,Urine Clear (Clear); Bacteria,Urine Rare /hpf; Bilirubin,Urine Negative (Negative); Blood,Urine Negative (Negative); Color,Urine Light Yellow; Glucose,Urine (UA) Negative (Negative); Ketones,Urine Negative (Negative); Leukocyte Esterase,Urine Small (Negative); Nitrite,Urine Negative (Negative); PH, Urine 5.5 (5.0-8.0); Protein,Urine Negative (Negative); RBC,Urine 1 /hpf (0-5); Specific Gravity,Urine 1.009 (1.001-1.035); Squamous Epithelial Cell,Urine 1 /hpf (0-4); Urobilinogen,Urine <2.0 mg/dL (<2.0); WBC,Urine 9 /hpf (0-5)
[2021-06-06 20:26] LABS: INR 0.9 (<1.2); Partial Thromboplastin Time 26.6 sec (22.0-30.0); Prothrombin Time 10.1 sec (9.0-12.0)
[2021-06-06 20:32] LABS: Albumin 4.4 g/dL (3.5-5.0); Calcium 9.3 mg/dL (8.4-10.2); Magnesium 1.8 mg/dL (1.6-2.3); Phosphorus 4.5 mg/dL (2.5-4.5); Potassium 4.1 mmol/L (3.5-5.1); Total Bilirubin 0.4 mg/dL (0.2-1.3)
--- NOTE | 2021-06-06 20:47 | XR ---
EXAMINATION TYPE: XR KUB DATE OF EXAM: 06/06/2021 8:06 PM INDICATION: Patient age:Female; 76 years old; Reason for study: weakness. COMPARISON: Radiograph 09/06/2020 TECHNIQUE: One radiographic view of the abdomen was obtained. FINDINGS: Postsurgical changes project of the abdomen including surgical clips and fixation hardware of the lower lumbar spine. Left total hip arthroplasty changes. The bowel gas pattern is nonspecific without dilated loops of small or large bowel. There is no evidence for organomegaly or pneumoperiton eum. Heterotropic ossifications are seen involving the left gluteal musculature. Fecal material and g as are demonstrated throughout the colon and rectum. IMPRESSION: Nonspecific bowel gas pattern without radiographic evidence for acute process.
--- NOTE | 2021-06-06 21:05 | XR ---
EXAMINATION TYPE: XR chest 1V portable DATE OF EXAM: 06/06/2021 8:08 PM COMPARISON:Chest radiographs from 05/06/2021 CT 1121 TECHNIQUE: XR chest 1V portable Frontal view of the chest. CLINICAL INDICATION:Female, 76 years old with history of weakness; FINDINGS: Lungs/Pleura: Right upper lobe airspace opacities are seen dating back to early 2020. Left midlung ai rspace opacities are new from June 2020. No evidence of pneumothorax or pleural effusion. Pulmonary vascularity: Unremarkable. Heart/mediastinum: Cardiomediastinal silhouette is unremarkable. Musculoskeletal: No acute osseous pathology. Other findings: None Lines/Tubes:Right-sided PICC line with distal tip at the cavoatrial junction. IMPRESSION: 1. Left mid lung disease which are similar to immediate prior, to visualize dating back to 07/07/2020 right mid and upper lung airspace opacities similar to prior dating. Superimposed pneumonia is not e ntirely excluded. 2. Right PICC in appropriate position.
[2021-06-06] MEDS ORDERED: MIRTAZAPINE 45 MG TABLET PO STA (21:26)
[2021-06-06] MEDS ORDERED: NALOXONE 0.4 MG/ML 1 ML VIAL IV PRN (22:41)
[2021-06-06] MEDS ORDERED: ACETAMINOPHEN TAB 325 MG TAB PO PRN (22:41)
[2021-06-06] MEDS: PANTOPRAZOLE 40 MG/10 ML VIAL IV SCH (23:13)
[2021-06-07] MEDS: ALPRAZolam 0.25 MG TAB PO PRN ×2 (05:30→17:20)
[2021-06-07 06:13] LABS: Anisocytosis Slight; Basophils % (A) 1 %; Eosinophils # (A) 0.5 k/uL (0-0.7); Eosinophils % (A) 5 %; HCT 30.1 % (34.0-46.0); HGB 9.3 gm/dL (11.4-16.0); Hypochromasia Marked; Lymphocytes # (A) 1.2 k/uL (1.0-4.8); Lymphocytes % (A) 13 %; MCH 26.6 pg (25.0-35.0); MCHC 30.7 g/dL (31.0-37.0); MCV 86.7 fL (80.0-100.0); Mean Platelet Volume 7.1; Monocytes # (A) 0.4 k/uL (0-1.0); Monocytes % (A) 4 %; Neutrophils # (A) 6.7 k/uL (1.3-7.7); Neutrophils % (A) 74 %; Platelet Count 484 k/uL (150-450); RBC 3.47 m/uL (3.80-5.40); RDW 18.5 % (11.5-15.5)
[2021-06-07 06:25] LABS: Albumin 3.6 g/dL (3.5-5.0); Calcium 8.7 mg/dL (8.4-10.2); Potassium 4.3 mmol/L (3.5-5.1); Total Bilirubin 0.5 mg/dL (0.2-1.3); Total Protein 7.1 g/dL (6.3-8.2)
[2021-06-07] MEDS: SODIUM CHLORIDE 0.9% 1,000 ML IV SCH ×2 (08:18→13:37)
[2021-06-07] MEDS: PANTOPRAZOLE 40 MG/10 ML VIAL IV SCH (08:19)
[2021-06-07] MEDS ORDERED: ALBUTEROL NEBULIZED 2.5 MG/3 ML INHALATION PRN (09:02)
[2021-06-07] MEDS ORDERED: SUMAtriptan succinate 50 MG TAB PO PRN (09:02)
[2021-06-07] MEDS: BUTALB/APAP/CAFF 50-325-40MG TAB PO PRN (09:49)
--- NOTE | 2021-06-07 10:14 | P.HPIM ---
History of Present Illness H&P Date: 06/07/21 This is a 76-year-old female well-known to our services. Patient presented with general complaints of weakness and nausea. Patient has a past medical history of chronic TPN use due to multiple stomach surgeries managed 80 round, asthma, COPD, thyroid disorder, chronic pain, anxiety depression and panic disorder. Patient reports she has been not feeling well for the past few days denies fever. Reports some nausea. Patient also reports headache which is chronic for her. KUB x-ray completed showing nonspecific bowel gas pattern without radiographic evidence for acute process. Chest x-ray was completed showing left mid lung disease which are similar to immediate prior to visualize dating back 07/07/2020 right mid and upper lobe airspace [place] similar to prior dating superimposed pneumonia is not entirely excluded. Patient was recently admitted and treated after sergio COVID-19 and pneumonia. Patient's creatinine on admission 2.19 bun 44. White blood cell but slightly elevated 11.8. COVID-19 negative. UA showing small amount of leukocyte Estrace urine culture ordered. At this time patient is resting comfortably in bed requesting pain medication for her chronic pain and headache. Current vitals temp 97.8, pulse rate 86, respiratory rate 18 blood pressure 124/73 oxygen saturation 96 on room air Review of Systems Please refer to HPI otherwise unremarkable Past Medical History Past Medical History: Asthma, COPD, GERD/Reflux, Memory Impairment, Respiratory Disorder, Thyroid Disorder Additional Past Medical History / Comment(s): 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 History of Any Multi-Drug Resistant Organisms: None Reported Past Surgical History: Back Surgery, Bowel Resection, Hysterectomy, Joint Replacement Additional Past Surgical History / Comment(s): LOWER BACK SURGERY lamenectomy /discetomy then had a revison of that sx. 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, nasal sx d/t broken nose, colonoscopy/egd, PAIN CLINIC PROCEDURES, PORT A CATH INSERTION, LT ADEOLA, left hip replacement Past Anesthesia/Blood Transfusion Reactions: No Reported Reaction Additional Past Anesthesia/Blood Transfusion Reaction / Comment(s): PT RECIEVED BLOOD TRANSFUSIONS AFTER STOMACH SURGERY Past Psychological History: Anxiety, Depression, Panic Disorder Smoking Status: Never smoker Past Alcohol Use History: None Reported Past Drug Use History: None Reported - Past Family History Father Family Medical History: Cancer, Coronary Artery Disease (CAD) Additional Family Medical History / Comment(s): FATHER HAD BLADDER AND KIDNEY CANCER. FATHER HAD TB WHEN HE WAS A CHILD .FATHER AT AGE 87. Mother Family Medical History: Cancer Additional Family Medical History / Comment(s): MOTHER AT AGE 58 OF OVARIAN CANCER. Medications and Allergies Home Medications Medication Instructions Recorded Confirmed Type Ferrous Sulfate [Iron (65 MG 325 mg PO DAILY@1200 11/06/15 06/06/21 History Elemental)] Levothyroxine Sodium [Synthroid] 88 mcg PO DAILY 06/07/19 06/06/21 History calcitrioL [Calcitriol] 1 mcg PO MOWEFR 06/07/19 06/06/21 History busPIRone HCL [Buspar] 30 mg PO BID 04/14/20 06/06/21 History Potassium Chloride ER [K-Dur 10] 30 meq PO DAILY@1200 04/18/20 06/06/21 History Pantoprazole Sodium [Protonix] 40 mg PO BID 30 Days #60 tablet. 04/27/20 06/06/21 Rx Butalb/APAP/Caff 50-325-40Mg 1 tab PO BID PRN 06/30/20 06/06/21 History [Fioricet 50-325-40] buPROPion XL [Wellbutrin XL] 150 mg PO DAILY 11/04/20 06/06/21 History Furosemide [Lasix] 20 mg PO DAILY #6 tab 12/13/20 06/06/21 Rx fentaNYL 75MCG/HR PATCH [Duragesic 1 patch TRANSDERM Q72H 3 Days #3 12/13/20 06/06/21 Rx 75MCG/HR] patch Tpn 1 dose IV DAILY@1900 02/20/21 06/06/21 History buPROPion XL [Wellbutrin XL] 300 mg PO DAILY 02/20/21 06/06/21 History Albuterol Sulfate [Albuterol 2 puff INHALATION RT-Q6H PRN 04/07/21 06/06/21 History Sulfate Hfa] Budesonide/Formoterol Fumarate 2 puff INHALATION RT-BID 04/07/21 06/06/21 History [Symbicort 160-4.5 Mcg Inhaler] Loratadine [Claritin] 10 mg PO DAILY 04/07/21 06/06/21 History Mirtazapine [Remeron] 45 mg PO HS 04/07/21 06/06/21 History SUMAtriptan succinate [Imitrex] 50 mg PO BID PRN 05/04/21 06/06/21 History Thiamine [Vitamin B-1] 100 mg PO DAILY 05/04/21 06/06/21 History Aspirin EC [Ecotrin Low Dose] 81 mg PO DAILY 05/12/21 06/06/21 History hydrOXYzine pamoate [Vistaril] 50 mg PO TID 06/06/21 06/06/21 History oxyCODONE-APAP 7.5-325MG [Percocet 1 tab PO BID 06/06/21 06/06/21 History 7.5-325 mg] Allergies Allergy/AdvReac Type Severity Reaction Status Date / Time denosumab [From Prolia] Allergy SEVERE Verified 06/06/21 23:15 CALCIUM LOSS morphine AdvReac Confusion Verified 06/06/21 23:15 DUST Allergy Itching Uncoded 06/06/21 23:15 MOLDS Allergy Itching Uncoded 06/06/21 23:15 Physical Exam Vitals: Vital Signs Temp Pulse Pulse Resp BP BP Pulse Ox 06/07/21 08:00 97.8 F 86 18 124/73 96 06/07/21 05:39 74 16 134/69 97 06/07/21 04:00 80 18 139/92 94 L 06/07/21 03:17 72 18 135/80 95 06/06/21 21:41 61 16 136/52 99 06/06/21 18:55 98.6 F 102 H 16 148/83 97 Intake and Output 06/06/21 06/07/21 06/07/21 22:59 06:59 14:59 Other: Voiding Method Toilet Weight 40.823 kg Head normocephalic Neck supple Lungs clear to auscultation bilaterally no wheezing or crackles Heart regular rate and rhythm S1-S2, no rub or gallop Abdomen is soft nontender nondistended positive bowel sounds no hepat osplenomegaly Extremities no edema Neuro alert and orientated to 3 Results CBC & Chem 7: 06/07/21 05:22 06/07/21 05:22 Labs: Abnormal Lab Results - Last 24 Hours (Table) 06/06/21 06/06/21 06/06/21 Range/Units 19:48 19:48 19:48 WBC 11.8 H (3.8-10.6) k/uL RBC 3.38 L (3.80-5.40) m/uL Hgb 9.1 L (11.4-16.0) gm/dL Hct 29.1 L (34.0-46.0) % MCHC (31.0-37.0) g/dL RDW 18.6 H (11.5-15.5) % Plt Count 465 H (150-450) k/uL Neutrophils # 9.0 H (1.3-7.7) k/uL Chloride (98-107) mmol/L Carbon Dioxide 20 L (22-30) mmol/L BUN 44 H (7-17) mg/dL Creatinine 2.19 H (0.52-1.04) mg/dL Alkaline Phosphatase 277 H (38-126) U/L TSH 13.900 H (0.465-4.680) mIU/L Ur Leukocyte Esterase Small H (Negative) Urine WBC 9 H (0-5) /hpf Urine Bacteria Rare H (None) /hpf 06/07/21 06/07/21 Range/Units 05:22 05:22 WBC (3.8-10.6) k/uL RBC 3.47 L (3.80-5.40) m/uL Hgb 9.3 L (11.4-16.0) gm/dL Hct 30.1 L (34.0-46.0) % MCHC 30.7 L (31.0-37.0) g/dL RDW 18.5 H (11.5-15.5) % Plt Count 484 H (150-450) k/uL Neutrophils # (1.3-7.7) k/uL Chloride 110 H (98-107) mmol/L Carbon Dioxide 21 L (22-30) mmol/L BUN 37 H (7-17) mg/dL Creatinine 1.90 H (0.52-1.04) mg/dL Alkaline Phosphatase 255 H (38-126) U/L TSH (0.465-4.680) mIU/L Ur Leukocyte Esterase (Negative) Urine WBC (0-5) /hpf Urine Bacteria (None) /hpf Assessment and Plan Assessment: 1. Generalized weakness and dehydration 2. Acute kidney injury. Improving 3. Urinary tract infection. Patient started on Rocephin urine culture ordered 4. History of recurrent aspiration pneumonia maintained on TPN 5. History of hypothyroidism. TSH elevated at 13.9 will increase Synthroid dose 8. History of immunoglobulin disorder 9. History of chronic pain with history of laminectomy 10. History of degenerative stress arthritis 11. History of pancreatitis 12. History of bowel obstruction 13. History of severe protein calorie malnutrition 14. History of COVID-19 infection and pneumonia DVT prophylaxis Lovenox. GI prophylaxis Protonix Home meds resumed Continue gentle hydration IV antibiotic for urinary tract infection Urine culture ordered Repeat labs ordered Patient will require home TPN Time with Patient: Greater than 30 (Greater than 60% of the total time spent in counseling and coordination of care)
[2021-06-07 11:19] LABS: Magnesium 1.8 mg/dL (1.6-2.3)
[2021-06-07] MEDS: POTASSIUM CHLORIDE ER 10 MEQ TAB.ER.PRT PO SCH (11:26)
[2021-06-07] MEDS: FERROUS SULFATE 325 MG TAB PO SCH (11:27)
[2021-06-07] MEDS ORDERED: [UNRECOGNIZED DRUG - OTHER] IV SCH ×7 (13:00)
[2021-06-07] MEDS ORDERED: SODIUM ACETATE IV SCH ×7 (13:00)
[2021-06-07] MEDS ORDERED: MAGNESIUM SULFATE IV SCH ×7 (13:00)
[2021-06-07] MEDS ORDERED: POTASSIUM PHOSPHATE IV SCH ×7 (13:00)
[2021-06-07] MEDS: oxyCODONE-APAP 7.5-325MG 1 EACH TAB PO SCH (13:07)
[2021-06-07 13:30] VITALS: BMI 16.5
--- NOTE | 2021-06-07 13:32 | XR ---
EXAMINATION TYPE: XR chest 2V DATE OF EXAM: 06/07/2021 COMPARISON: 06/06/2021 TECHNIQUE: PA and lateral views submitted. HISTORY: Cough FINDINGS: Large area of consolidation in the left upper lobe. Underlying neoplasm in the differential diagnosis . Patchy infiltrate in the right upper lobe stable. Coarsened interstitial pattern with a pleural thi ckening involving the lung apices. Suspect underlying COPD. Heart size stable. Surgical change in the abdomen. Right-sided central line seen with the tip overlying the SVC. IMPRESSION: 1. Findings are similar to prior chest x-ray with findings suggestive of COPD and chronic interstitia l lung disease. Patchy pneumonia or infiltrate in the right upper lobe is stable. Masslike consolidat ion in the left lung could represent pneumonia or neoplasm and is similar to prior exam.
[2021-06-07] MEDS: hydrOXYzine pamoate 25 MG CAP PO SCH ×2 (15:10→20:40)
--- NOTE | 2021-06-07 16:43 | P.CNPUL ---
History of Present Illness Consult date: 06/07/21 Requesting physician: Palmer Desir Reason for consult: abnormal CXR/CT Chief complaint: Abnormal labs History of present illness: This is a very pleasant 76-year-old female patient well known to our practice. She has a history of chronic obstructive pulmonary disease with multiple COPD exacerbations and admissions, chronic aspiration pneumonia, fever is previous gastrectomy and receives TPN in the outpatient setting, hypothyroidism, , anorexia/cachexia syndrome. She came to the emergency room yesterday after being told by her specialist at the [facility] that her renal functi on was off. She was also having symptoms of weakness and headaches. She is seen today in consultation on the regular medical floor. She has chronic changes in her chest x-ray including right upper lobe and left midlung. She follows with ID services and has a port in for frequent IV antibiotics. Most recently in February she had MRSA in her bronchial wash. She denies any shortness of breath, cough or congestion. No fever or chills. No hemoptysis. She is maintaining O2 saturations in the upper 90s on room air. White count 9.0. Hemoglobin 9.3. Platelets 484. Sodium 141. Potassium 4.3. Bicarb 21. Creatinine 1.90. She's been initiated on ceftriaxone. Continued on Symbicort, albuterol. 0.9 normal saline at 75 ML's per hour. Review of Systems REVIEW OF SYSTEMS: CONSTITUTIONAL: Positive for generalized weakness. Denies any recent significant weight loss or weight gain. EYES: Denies change in vision. EARS, NOSE, MOUTH, THROAT: Positive for headaches, denies sore throat. CARDIOVASCULAR: Denies chest pain, palpitations or syncopal episodes. RESPIRATORY: Denies shortness of breath, cough, congestion or hemoptysis. GASTROINTESTINAL: Denies change in appetite, denies abdominal pain GENITOURINARY: Denies hematuria, denies infections. MUSKULOSKELETAL: Denies pain, denies swelling. INTEGUMENTARY: Denies rash, denies eczema. NEUROLOGICAL: Denies recent memory loss, no recent seizure activity. PSYCHIATRIC: Denies anxiety, denies depression. HEMATOLOGIC/LYMPHATIC: Denies anemia, denies enlarged lymph nodes. Past Medical History Past Medical History: Asthma, COPD, CVA/TIA, GERD/Reflux, Memory Impairment, Osteoarthritis (OA), Pneumonia, Renal Disease, Respiratory Disorder, Thyroid Disorder Additional Past Medical History / Comment(s): Aspiration, pneumonias, covid pneumonia, protein calorie malnutrition, pt is on TPN/ manage thru [facility], chronic anemia, gastric ulcers/PUD, pancreatitis, bowel obstruction/surgery, constipation, CKD stage IV, TIA, chronic migraines, chronic back/cervical pain/spinal stenosis, hypothyroid, hyponatremia. History of Any Multi-Drug Resistant Organisms: None Reported Past Surgical History: Back Surgery, Bowel Resection, Hysterectomy, Joint Replacement Additional Past Surgical History / Comment(s): LOWER BACK SURGERY lamenectomy/discetomy then had a revison of that sx. 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 FATHER HAD TB WHEN HE WAS A CHILD .FATHER AT AGE 87. Mother Family Medical History: Cancer Additional Family Medical History / Comment(s): MOTHER AT AGE 58 OF OVARIAN CANCER. Medications and Allergies Home Medications Medication Instructions Recorded Confirmed Type Ferrous Sulfate [Iron (65 MG 325 mg PO DAILY@1200 11/06/15 06/06/21 History Elemental)] Levothyroxine Sodium [Synthroid] 88 mcg PO DAILY 06/07/19 06/06/21 History calcitrioL [Calcitriol] 1 mcg PO MOWEFR 06/07/19 06/06/21 History busPIRone HCL [Buspar] 30 mg PO BID 04/14/20 06/06/21 History Potassium Chloride ER [K-Dur 10] 30 meq PO DAILY@1200 04/18/20 06/06/21 History Pantoprazole Sodium [Protonix] 40 mg PO BID 30 Days #60 tablet. 04/27/20 Rx Butalb/APAP/Caff 50-325-40Mg 1 tab PO BID PRN 06/30/20 06/06/21 History [Fioricet 50-325-40] buPROPion XL [Wellbutrin XL] 150 mg PO DAILY 11/04/20 06/06/21 History Furosemide [Lasix] 20 mg PO DAILY #6 tab 12/13/20 06/06/21 Rx fentaNYL 75MCG/HR PATCH [Duragesic 1 patch TRANSDERM Q72H 3 Days #3 12/13/20 06/06/21 Rx 75MCG/HR] patch Tpn 1 dose IV DAILY@1900 02/20/21 06/06/21 History buPROPion XL [Wellbutrin XL] 300 mg PO DAILY 02/20/21 06/06/21 History Albuterol Sulfate [Albuterol 2 puff INHALATION RT-Q6H PRN 04/07/21 06/06/21 History Sulfate Hfa] Budesonide/Formoterol Fumarate 2 puff INHALATION RT-BID 04/07/21 06/06/21 History [Symbicort 160-4.5 Mcg Inhaler] Loratadine [Claritin] 10 mg PO DAILY 04/07/21 06/06/21 History Mirtazapine [Remeron] 45 mg PO HS 04/07/21 06/06/21 History SUMAtriptan succinate [Imitrex] 50 mg PO BID PRN 05/04/21 06/06/21 History Thiamine [Vitamin B-1] 100 mg PO DAILY 05/04/21 06/06/21 History Aspirin EC [Ecotrin Low Dose] 81 mg PO DAILY 05/12/21 06/06/21 History hydrOXYzine pamoate [Vistaril] 50 mg PO TID 06/06/21 06/06/21 History oxyCODONE-APAP 7.5-325MG [Percocet 1 tab PO BID 06/06/21 06/06/21 History 7.5-325 mg] Allergies Allergy/AdvReac Type Severity Reaction Status Date / Time denosumab [From Prolia] Allergy SEVERE Verified 06/06/21 23:15 CALCIUM LOSS morphine AdvReac Confusion Verified 06/06/21 23:15 DUST Allergy Itching Uncoded 06/06/21 23:15 MOLDS Allergy Itching Uncoded 06/06/21 23:15 Physical Exam Vitals: Vital Signs Temp Pulse Pulse Resp BP BP Pulse Ox 06/07/21 14:00 97.6 F 91 18 130/75 98 06/07/21 08:00 97.8 F 86 18 124/73 96 06/07/21 05:39 74 16 134/69 97 06/07/21 04:00 80 18 139/92 94 L 06/07/21 03:17 72 18 135/80 95 06/06/21 21:41 61 16 136/52 99 06/06/21 18:55 98.6 F 102 H 16 148/83 97 Intake and Output 06/07/21 06/07/21 06/07/21 06:59 14:59 22:59 Other: Voiding Method Toilet Weight 40.823 kg GENERAL EXAM: Alert, frail, cachectic 76-year-old female, on room air, comfortable in no apparent distress. HEAD: Normocephalic. EYES: Normal reaction of pupils, equal size. NOSE: Clear with pink turbinates. THROAT: No erythema or exudates. NECK: No masses, no JVD. CHEST: No chest wall deformity. Right subclavian port in place LUNGS: Equal air entry with scattered rhonchi bilaterally. CVS: S1 and S2 normal with no audible murmur, regular rhythm. ABDOMEN: No hepatosplenomegaly, normal bowel sounds, no guarding or rigidity. SPINE: No scoliosis or deformity SKIN: No rashes CENTRAL NERVOUS SYSTEM: No focal deficits, tone is normal in all 4 extremities. EXTREMITIES: There is no peripheral edema. No clubbing, no cyanosis. Peripheral pulses are intact. Results - Laboratory Findings CBC and BMP: 06/07/21 05:22 06/07/21 05:22 PT/INR, D-dimer PT 10.1 sec (9.0-12.0) 06/06/21 19:48 INR 0.9 (<1.2) 06/06/21 19:48 Abnormal lab findings: Abnormal Labs 06/06/21 06/06/21 06/06/21 19:48 19:48 19:48 WBC 11.8 H RBC 3.38 L Hgb 9.1 L Hct 29.1 L MCHC RDW 18.6 H Plt Count 465 H Neutrophils # 9.0 H Chloride Carbon Dioxide 20 L BUN 44 H Creatinine 2.19 H Alkaline Phosphatase 277 H TSH 13.900 H Ur Leukocyte Esterase Small H Urine WBC 9 H Urine Bacteria Rare H 06/07/21 06/07/21 05:22 05:22 WBC RBC 3.47 L Hgb 9.3 L Hct 30.1 L MCHC 30.7 L RDW 18.5 H Plt Count 484 H Neutrophils # Chloride 110 H Carbon Dioxide 21 L BUN 37 H Creatinine 1.90 H Alkaline Phosphatase 255 H TSH Ur Leukocyte Esterase Urine WBC Urine Bacteria - Diagnostic Findings Chest x-ray: image reviewed Assessment and Plan Assessment: 1 Generalized weakness secondary to acute kidney injury 2 Acute kidney injury 3 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 Maintained on TPN in the outpatient setting 4 History of frequent aspiration pneumonias and MRSA pneumonia with some chronic right upper lung and left midlung changes 5 Gastroesophageal reflux disease. 6 History of hypothyroidism. 7 History of migraine cephalgia. 8 History of pancreatitis. 9 History of chronic kidney disease. Plan: The patient was seen and evaluated today Chest x-ray and labs reviewed Currently on ceftriaxone Check a pro-calcitonin Remains on TPN for nutritional support Continue Symbicort and albuterol We will continue to follow and make further recommendations based on her clinical status I, the cosigning physician, performed a history & physical examination of the patient. Lungs sounds few scattered rhonchi bilaterally. Maintaining good O2 saturations in the 90s on room air. I discussed the assessment and plan of care with my nurse practitioner, Leyla Grace. I attest to the above consultation as dictated by her. I have personally seen and examined the patient, performed the documentation and the assessment and plan as written. Number of minutes spent on the visit: 20.
[2021-06-07] MEDS: busPIRone HCl 10 MG TAB PO SCH (20:39)
[2021-06-07] MEDS: MIRTAZAPINE 45 MG TABLET PO SCH (20:39)
[2021-06-07] MEDS: HYDROmorphone 1 MG/ML 1 ML SYRINGE IVP PRN (20:55)
[2021-06-07] MEDS: SYMBICORT 160-4.5 MCG INHALER INHALATION SCH (20:59)
[2021-06-08] MEDS: HYDROmorphone 1 MG/ML 1 ML SYRINGE IVP PRN ×4 (03:16→21:35)
[2021-06-08] MEDS: SODIUM CHLORIDE 0.9% 1,000 ML IV SCH ×2 (03:19→11:23)
[2021-06-08] MEDS ORDERED: LEVOTHYROXINE 88 MCG TAB PO SCH (06:30)
[2021-06-08] MEDS: BUTALB/APAP/CAFF 50-325-40MG TAB PO PRN ×2 (07:41→17:13)
[2021-06-08] MEDS: THIAMINE 100 MG TAB PO SCH (07:42)
[2021-06-08] MEDS: ENOXAPARIN 40 MG/0.4 ML SYRINGE SQ SCH (07:42)
[2021-06-08] MEDS: ASPIRIN 81 MG PO SCH (07:42)
[2021-06-08] MEDS: PANTOPRAZOLE 40 MG/10 ML VIAL IV SCH (07:42)
[2021-06-08] MEDS: buPROPion XL 300 MG TAB.ER.24H PO SCH (07:42)
[2021-06-08] MEDS: oxyCODONE-APAP 7.5-325MG 1 EACH TAB PO SCH ×2 (07:43→19:51)
[2021-06-08] MEDS: buPROPion XL 150 MG TAB.ER.24H PO SCH (07:43)
[2021-06-08] MEDS: LORATADINE 10 MG TAB PO SCH (07:43)
[2021-06-08] MEDS: FUROSEMIDE 20 MG TAB PO SCH (07:43)
[2021-06-08] MEDS: busPIRone HCl 10 MG TAB PO SCH ×2 (07:44→20:11)
[2021-06-08] MEDS: LEVOTHYROXINE 100 MCG TAB PO SCH (07:44)
[2021-06-08] MEDS: hydrOXYzine pamoate 25 MG CAP PO SCH ×3 (07:45→20:11)
[2021-06-08] MEDS: SYMBICORT 160-4.5 MCG INHALER INHALATION SCH ×2 (08:44→20:04)
[2021-06-08] MEDS ORDERED: FAT EMULSION 20% 500 ML in EMPTY BAG 1 BAG IV SCH (09:00)
[2021-06-08] MEDS: ALPRAZolam 0.25 MG TAB PO PRN ×2 (11:08→20:11)
[2021-06-08] MEDS: POTASSIUM CHLORIDE ER 10 MEQ TAB.ER.PRT PO SCH (11:08)
[2021-06-08] MEDS: FERROUS SULFATE 325 MG TAB PO SCH (11:08)
[2021-06-08 12:02] LABS: Basophils # (A) 0.06 X 10*3/uL (0.00-0.10); Basophils % (A) 0.8 %; Eosinophils # (A) 0.49 X 10*3/uL (0.04-0.35); Eosinophils % (A) 6.4 %; HCT 31.4 % (37.2-46.3); HGB 9.2 g/dL (12.0-15.0); Immature Grans, Automated 0.3 %; Lymphocytes % (A) 24.6 %; MCH 25.3 pg (27.0-32.0); MCHC 29.3 g/dL (32.0-37.0); MCV 86.3 fL (80.0-97.0); Mean Platelet Volume 9.9 fL (9.5-12.2); Monocytes % (A) 7.8 %; NRBC Per 100 WBC 0 /100 WBCS (0.0-0.0); Neutrophils # (A) 4.64 X 10*3/uL (1.80-7.70); Neutrophils % (A) 60.1 %; Platelet Count 458 X 10*3/uL (140-440); RBC 3.64 X 10*6/uL (4.10-5.20); RDW 18.4 % (11.5-14.5); WBC 7.71 X 10*3/uL (4.50-10.00)
[2021-06-08 12:16] LABS: Phosphorus 2.8 mg/dL (2.4-5.1)
[2021-06-08 12:24] LABS: ALT 14 U/L (8-44); AST 14 U/L (13-35); African American GFR (CKD) 42.8 (60.0-200.0); Albumin 3.5 g/dL (3.8-4.9); Alkaline Phosphatase 237 U/L (41-126); Blood Urea Nitrogen 23.8 mg/dL (9.0-27.0); Calcium 8.5 mg/dL (8.7-10.3); Carbon Dioxide 18.6 mmol/L (20.0-27.5); Chloride 110 mmol/L (96-109); Globulin 2.7 g/dL (1.6-3.3); Glucose 107 mg/dL (70-110); Non-African American GFR(CKD) 36.9 (60.0-200.0); Potassium 4.5 mmol/L (3.5-5.5); Sodium 140 mmol/L (135-145); Total Bilirubin <0.15 mg/dL (0.30-1.20); Total Protein 6.2 g/dL (6.2-8.2)
--- NOTE | 2021-06-08 12:39 | P.PN ---
Subjective Progress Note Date: 06/08/21 This is a 76-year-old female well-known to our services. Patient presented with general complaints of weakness and nausea. Patient has a past medical history of chronic TPN use due to multiple stomach surgeries managed 80 round, asthma, COPD, thyroid disorder, chronic pain, anxiety depression and panic disorder. Patient reports she has been not feeling well for the past few days denies fever. Reports some nausea. Patient also reports headache which is chronic for her. KUB x-ray completed showing nonspecific bowel gas pattern without radiographic evidence for acute process. Chest x-ray was completed showing left mid lung disease which are similar to immediate prior to visualize dating back 07/07/2020 right mid and upper lobe airspace OKC similar to prior dating superimposed pneumonia is not entirely excluded. Patient was recently admitted and treated after sergio COVID-19 and pneumonia. Patient's creatinine on admission 2.19 bun 44. White blood cell but slightly elevated 11.8. COVID-19 negative. UA showing small amount of leukocyte Estrace urine culture ordered. At this time patient is resting comfortably in bed requesting pain medication for her chronic pain and headache. Current vitals temp 97.8, pulse rate 86, respiratory rate 18 blood pressure 124/73 oxygen saturation 96 on room air On 06/08/2021 patient was seen and examined on the medical floor she is alert and oriented 3 in no apparent distress there is no fever or chills no headache or dizziness no chest pain no shortness of breath no cough no nausea or vomiting no abdominal pain no diarrhea no blood in the stools no burning with urination no frequency or urgency no hematuria . Vital exam reveals a temperature of 98.1 pulse 80 respiration 18 blood pressure 150/77 pulse ox 99% on room air laboratory data reveals a white blood count of 7.7 hemoglobin 9.2 platelet count 458 BUN 23 creatinine 1.4 Objective - Vital Signs Vital signs: Vital Signs Temp 98 F 06/08/21 07:33 Pulse 77 06/08/21 07:33 Resp 16 06/08/21 07:33 BP 150/77 06/08/21 07:33 Pulse Ox 99 06/08/21 07:33 Intake & Output 06/07/21 06/08/21 06/08/21 18:59 06:59 18:59 Intake Total 1018 120 Balance 1018 120 Weight 40.823 kg Intake: Intake, IV Titration 900 Amount Sodium Chloride 0.9% 1, 900 000 ml @ 75 mls/hr IV . [id number] [facility] Rx#:[id number] Oral 118 120 Other: Voiding Method Toilet Toilet - Exam Head normocephalic and atraumatic Neck supple no JVD no goiter Lungs clear to auscultation bilaterally no wheezing or crackles Heart regular rate and rhythm S1-S2, no rub or gallop Abdomen is soft nontender nondistended positive bowel sounds no hepatosplenomegaly Extremities no edema Neuro alert and orientated to 3 - Labs CBC & Chem 7: 06/08/21 06:58 06/08/21 06:58 Labs: Abnormal Lab Results - Last 24 Hours (Table) 06/08/21 06/08/21 Range/Units 06:58 06:58 RBC 3.64 L (4.10-5.20) X 10*6/uL Hgb 9.2 L (12.0-15.0) g/dL Hct 31.4 L (37.2-46.3) % MCH 25.3 L (27.0-32.0) pg MCHC 29.3 L (32.0-37.0) g/dL RDW 18.4 H (11.5-14.5) % Plt Count 458 H (140-440) X 10*3/uL Eosinophils # 0.49 H (0.04-0.35) X 10*3/uL Chloride 110 H (96-109) mmol/L Carbon Dioxide 18.6 L (20.0-27.5) mmol/L Est GFR (CKD-EPI)AfAm 42.8 L (60.0-200.0) Est GFR (CKD-EPI)NonAf 36.9 L (60.0-200.0) Calcium 8.5 L (8.7-10.3) mg/dL Total Bilirubin <0.15 L (0.30-1.20) mg/dL Alkaline Phosphatase 237 H (41-126) U/L Albumin 3.5 L (3.8-4.9) g/dL Albumin/Globulin Ratio 1.30 L (1.60-3.17) g/dL Microbiology - Last 24 Hours (Table) 06/07/21 14:05 Urine Culture - Preliminary Urine,Voided Assessment and Plan Assessment: 1. Generalized weakness and dehydration 2. Acute kidney injury. Improving 3. Urinary tract infection. Patient started on Rocephin urine culture ordered 4. History of recurrent aspiration pneumonia maintained on TPN 5. History of hypothyroidism. TSH elevated at 13.9 will increase Synthroid dose 8. History of immunoglobulin disorder 9. History of chronic pain with history of laminectomy 10. History of degenerative stress arthritis 11. History of pancreatitis 12. History of bowel obstruction 13. History of severe protein calorie malnutrition 14. History of COVID-19 infection and pneumonia DVT prophylaxis Lovenox. GI prophylaxis Protonix Home meds resumed Continue gentle hydration IV antibiotic for urinary tract infection Urine culture ordered Repeat labs ordered Patient will require home TPN
--- NOTE | 2021-06-08 15:05 | P.PN ---
Subjective Progress Note Date: 06/08/21 Principal diagnosis: Acute kidney injury This is a very pleasant 76-year-old female patient well known to our practice. She has a history of chronic obstructive pulmonary disease with multiple COPD exacerbations and admissions, chronic aspiration pneumonia, fever is previous ga strectomy and receives TPN in the outpatient setting, hypothyroidism, , anorexia/cachexia syndrome. She came to the emergency room yesterday after being told by her specialist at the [facility] that her renal function was off. She was also having symptoms of weakness and headaches. She is seen today in consultation on the regular medical floor. She has chronic changes in her chest x-ray including right upper lobe and left midlung. She follows with ID services and has a port in for frequent IV antibiotics. Most recently in February she had MRSA in her bronchial wash. She denies any shortness of breath, cough or congestion. No fever or chills. No hemoptysis. She is maintaining O2 saturations in the upper 90s on room air. White count 9.0. Hemoglobin 9.3. Platelets 484. Sodium 141. Potassium 4.3. Bicarb 21. Creatinine 1.90. She's been initiated on ceftriaxone. Continued on Symbicort, albuterol. 0.9 normal saline at 75 ML's per hour. The patient is seen today 06/08/2021 in follow-up on the regular medical floor. She is currently resting comfortably in bed. Awake and alert in no acute distress. Maintaining good O2 saturations in the 90s on room air. She remains on TPN at 30 MLS per hour. 0.9 normal saline at 42 ML's per hour. No worsening shortness of breath, cough or congestion. No fever or chills. Urine culture pending. White count 7.7. Hemoglobin 9.2. Sodium 140. Potassium 4.5. BUN 23. Creatinine 1.4. She is continued on Symbicort, albuterol. Lovenox for DVT prophylaxis. Ceftriaxone for suspected UTI. Objective - Vital Signs Vital signs: Vital Signs Temp 98.2 F 06/08/21 14:00 Pulse 87 06/08/21 14:00 Resp 16 06/08/21 14:00 BP 123/70 06/08/21 14:00 Pulse Ox 98 06/08/21 14:00 Intake & Output 06/07/21 06/08/2122 18:59 06:59 18:59 Intake Total 1018 120 Balance 1018 120 Weight 40.823 kg Intake: Intake, IV Titration 900 Amount Sodium Chloride 0.9% 1, 900 000 ml @ 75 mls/hr IV . [id number] [facility] Rx#:[id number] Oral 118 120 Other: Voiding Method Toilet Toilet - Exam GENERAL EXAM: Alert, frail, cachectic 76-year-old female, on room air, comfortable in no apparent distress. HEAD: Normocephalic. EYES: Normal reaction of pupils, equal size. NOSE: Clear with pink turbinates. THROAT: No erythema or exudates. NECK: No masses, no JVD. CHEST: No chest wall deformity. Right subclavian port in place LUNGS: Equal air entry with scattered rhonchi bilaterally. CVS: S1 and S2 normal with no audible murmur, regular rhythm. ABDOMEN: No hepatosplenomegaly, normal bowel sounds, no guarding or rigidity. SPINE: No scoliosis or deformity SKIN: No rashes CENTRAL NERVOUS SYSTEM: No focal deficits, tone is normal in all 4 extremities. EXTREMITIES: There is no peripheral edema. No clubbing, no cyanosis. Peripheral pulses are intact. - Labs CBC & Chem 7: 06/08/21 06:58 06/08/21 06:58 Labs: Abnormal Lab Results - Last 24 Hours (Table) 06/08/21 06/08/21 Range/Units 06:58 06:58 RBC 3.64 L (4.10-5.20) X 10*6/uL Hgb 9.2 L (12.0-15.0) g/dL Hct 31.4 L (37.2-46.3) % MCH 25.3 L (27.0-32.0) pg MCHC 29.3 L (32.0-37.0) g/dL RDW 18.4 H (11.5-14.5) % Plt Count 458 H (140-440) X 10*3/uL Eosinophils # 0.49 H (0.04-0.35) X 10*3/uL Chloride 110 H (96-109) mmol/L Carbon Dioxide 18.6 L (20.0-27.5) mmol/L Est GFR (CKD-EPI)AfAm 42.8 L (60.0-200.0) Est GFR (CKD-EPI)NonAf 36.9 L (60.0-200.0) Calcium 8.5 L (8.7-10.3) mg/dL Total Bilirubin <0.15 L (0.30-1.20) mg/dL Alkaline Phosphatase 237 H (41-126) U/L Albumin 3.5 L (3.8-4.9) g/dL Albumin/Globulin Ratio 1.30 L (1.60-3.17) g/dL Microbiology - Last 24 Hours (Table) 06/07/21 14:05 Urine Culture - Preliminary Urine,Voided Assessment and Plan Assessment: 1 Generalized weakness secondary to acute kidney injury him a presenting creatinine 2.19, currently 1.4. GFR 37. 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 Maintained on TPN in the outpatient setting 4 History of frequent aspiration pneumonias and MRSA pneumonia with some chronic right upper lung and left midlung changes 5 Gastroesophageal reflux disease. 6 History of hypothyroidism. 7 History of migraine cephalgia. 8 History of pancreatitis. 9 History of chronic kidney disease. Plan: The patient was seen and evaluated today Stable and on room air Remains on TPN for nutritional support Continue Symbicort and albuterol We will see as needed I, the cosigning physician, performed a history & physical examination of the patient. Lungs sounds few scattered rhonchi bilaterally. Maintaining good O2 saturations in the 90s on room air. I discussed the assessment and plan of care with my nurse practitioner, Leyla Grace. I attest to the above note as dictated by her. I have personally seen and examined the patient, performed the documentation and the assessment and plan as written. Number of minutes spent on the visit: 10.
[2021-06-08] MEDS: ONDANSETRON 4 MG/2 ML VIAL IVP PRN (19:48)
[2021-06-08] MEDS: MIRTAZAPINE 45 MG TABLET PO SCH (20:11)
[2021-06-09] MEDS ORDERED: ACETAMINOPHEN IV (For NPO) 1,000 MG in EMPTY BAG 1 BAG IVPB PRN
[2021-06-09] MEDS: HYDROmorphone 1 MG/ML 1 ML SYRINGE IVP PRN ×4 (03:19→22:28)
[2021-06-09] MEDS: ONDANSETRON 4 MG/2 ML VIAL IVP PRN ×2 (03:19→11:57)
[2021-06-09] MEDS: SODIUM CHLORIDE 0.9% 1,000 ML IV SCH ×2 (03:23→15:22)
[2021-06-09] MEDS: LEVOTHYROXINE 100 MCG TAB PO SCH (06:02)
[2021-06-09] MEDS: BUTALB/APAP/CAFF 50-325-40MG TAB PO PRN ×2 (06:12→17:54)
[2021-06-09] MEDS: SYMBICORT 160-4.5 MCG INHALER INHALATION SCH ×2 (07:41→20:19)
[2021-06-09] MEDS: oxyCODONE-APAP 7.5-325MG 1 EACH TAB PO SCH ×2 (07:56→21:10)
[2021-06-09] MEDS: busPIRone HCl 10 MG TAB PO SCH ×2 (07:57→21:11)
[2021-06-09] MEDS: THIAMINE 100 MG TAB PO SCH (07:57)
[2021-06-09] MEDS: PANTOPRAZOLE 40 MG/10 ML VIAL IV SCH (07:57)
[2021-06-09] MEDS: ENOXAPARIN 40 MG/0.4 ML SYRINGE SQ SCH (07:57)
[2021-06-09] MEDS: FUROSEMIDE 20 MG TAB PO SCH (07:57)
[2021-06-09] MEDS: LORATADINE 10 MG TAB PO SCH (07:58)
[2021-06-09] MEDS: ASPIRIN 81 MG PO SCH (07:58)
[2021-06-09] MEDS: buPROPion XL 150 MG TAB.ER.24H PO SCH (07:58)
[2021-06-09] MEDS: buPROPion XL 300 MG TAB.ER.24H PO SCH (07:58)
[2021-06-09] MEDS: hydrOXYzine pamoate 25 MG CAP PO SCH ×3 (07:58→21:11)
[2021-06-09] MEDS: ALPRAZolam 0.25 MG TAB PO PRN ×2 (08:01→19:42)
[2021-06-09 08:25] LABS: African American GFR (CKD) 45 (>60 ml/min/1.73 sqM); Albumin 3.2 g/dL (3.5-5.0); Alkaline Phosphatase 393 U/L (38-126); Anion Gap 11 mmol/L; Blood Urea Nitrogen 26 mg/dL (7-17); Calcium 8.5 mg/dL (8.4-10.2); Carbon Dioxide 19 mmol/L (22-30); Chloride 107 mmol/L (98-107); Globulin 3.2 g/dL; Glucose 143 mg/dL (74-99); Magnesium 1.7 mg/dL (1.6-2.3); Non-African American GFR(CKD) 39 (>60 ml/min/1.73 sqM); Potassium 4.3 mmol/L (3.5-5.1); Sodium 137 mmol/L (137-145); Total Bilirubin 0.4 mg/dL (0.2-1.3); Total Protein 6.4 g/dL (6.3-8.2)
[2021-06-09 08:32] LABS: ALT 944 U/L (4-34)
[2021-06-09 08:55] LABS: AST 2046 U/L (14-36)
--- NOTE | 2021-06-09 10:17 | P.PN ---
Subjective Progress Note Date: 06/09/21 This is a 76-year-old female well-known to our services. Patient presented with general complaints of weakness and nausea. Patient has a past medical history of chronic TPN use due to multiple stomach surgeries managed 80 round, asthma, COPD, thyroid disorder, chronic pain, anxiety depression and panic disorder. Patient reports she has been not feeling well for the past few days denies fever. Reports some nausea. Patient also reports headache which is chronic for her. KUB x-ray completed showing nonspecific bowel gas pattern without radiographic evidence for acute process. Chest x-ray was completed showing left mid lung disease which are similar to immediate prior to visualize dating back 07/07/2020 right mid and upper lobe airspace OKC similar to prior dating superimposed pneumonia is not entirely excluded. Patient was recently admitted and treated after sergio COVID-19 and pneumonia. Patient's creatinine on admission 2.19 bun 44. White blood cell but slightly elevated 11.8. COVID-19 negative. UA showing small amount of leukocyte Estrace urine culture ordered. At this time patient is resting comfortably in bed requesting pain medication for her chronic pain and headache. Current vitals temp 97.8, pulse rate 86, respiratory rate 18 blood pressure 124/73 oxygen saturation 96 on room air On 06/08/2021 patient was seen and examined on the medical floor she is alert and oriented 3 in no apparent distress there is no fever or chills no headache or dizziness no chest pain no shortness of breath no cough no nausea or vomiting no abdominal pain no diarrhea no blood in the stools no burning with urination no frequency or urgency no hematuria . Vital exam reveals a temperature of 98.1 pulse 80 respiration 18 blood pressure 150/77 pulse ox 99% on room air laboratory data reveals a white blood count of 7.7 hemoglobin 9.2 platelet count 458 BUN 23 creatinine 1.4 On 06/09/2021 patient is alert and oriented 3. Patient complaining of headache. Patient had temperature yesterday 101.2 patient remains on Rocephin for urinary tract infection. Pulmonary services are following. Patient is complaining of mild flank pain. Patient denies chest pain. Patient complaining of occasional nausea. Patient denies any urinary burning or frequency Objective - Vital Signs Vital signs: Vital Signs Temp 99.3 F 06/09/21 07:42 Pulse 53 L 06/09/21 07:42 Resp 16 06/09/21 07:42 BP 128/66 06/09/21 07:42 Pulse Ox 97 06/09/21 07:42 Intake & Output 06/08/21 06/09/21 06/09/21 18:59 06:59 18:59 Intake Total 120 0 Balance 120 0 Intake: Oral 120 0 Other: Voiding Method Toilet Toilet # Voids 2 1 0 - Exam Head normocephalic and atraumatic Neck supple no JVD no goiter Lungs clear to auscultation bilaterally no wheezing or crackles Heart regular rate and rhythm S1-S2, no rub or gallop Abdomen is soft nontender nondistended positive bowel sounds no hepatosplenomegaly Extremities no edema Neuro alert and orientated to 3 - Labs CBC & Chem 7: 06/08/21 06:58 06/09/21 07:45 Labs: Abnormal Lab Results - Last 24 Hours (Table) 06/08/21 06/08/21 06/09/21 Range/Units 06:58 06:58 07:45 RBC 3.64 L (4.10-5.20) X 10*6/uL Hgb 9.2 L (12.0-15.0) g/dL Hct 31.4 L (37.2-46.3) % MCH 25.3 L (27.0-32.0) pg MCHC 29.3 L (32.0-37.0) g/dL RDW 18.4 H (11.5-14.5) % Plt Count 458 H (140-440) X 10*3/uL Eosinophils # 0.49 H (0.04-0.35) X 10*3/uL Chloride 110 H (96-109) mmol/L Carbon Dioxide 18.6 L 19 L (20.0-27.5) mmol/L BUN 26 H (7-17) mg/dL Creatinine 1.33 H (0.52-1.04) mg/dL Est GFR (CKD-EPI)AfAm 42.8 L (60.0-200.0) Est GFR (CKD-EPI)NonAf 36.9 L (60.0-200.0) Glucose 143 H (74-99) mg/dL Calcium 8.5 L (8.7-10.3) mg/dL Total Bilirubin <0.15 L (0.30-1.20) mg/dL AST 2046 H (14-36) U/L ALT 944 H (4-34) U/L Alkaline Phosphatase 237 H 393 H (41-126) U/L Albumin 3.5 L 3.2 L (3.8-4.9) g/dL Albumin/Globulin Ratio 1.30 L (1.60-3.17) g/dL Microbiology - Last 24 Hours (Table) 06/07/21 14:05 Urine Culture - Preliminary Urine,Voided Gram Neg Bacilli Assessment and Plan Assessment: 1. Generalized weakness and dehydration 2. Acute kidney injury. Improving 3. Urinary tract infection. Patient started on Rocephin urine culture ordered 4. History of recurrent aspiration pneumonia maintained on TPN 5. History of hypothyroidism. TSH elevated at 13.9 will increase Synthroid dose 8. History of immunoglobulin disorder 9. History of chronic pain with history of laminectomy 10. History of degenerative stress arthritis 11. History of pancreatitis 12. History of bowel obstruction 13. History of severe protein calorie malnutrition 14. History of COVID-19 infection and pneumonia DVT prophylaxis Lovenox. GI prophylaxis Protonix Home meds resumed Continue gentle hydration IV antibiotic for urinary tract infection Urine culture ordered Repeat labs ordered Patient will require home TPN
[2021-06-09] MEDS: FERROUS SULFATE 325 MG TAB PO SCH (10:48)
[2021-06-09] MEDS: POTASSIUM CHLORIDE ER 10 MEQ TAB.ER.PRT PO SCH (10:48)
[2021-06-09 10:55] LABS: Basophils # (A) 0.07 X 10*3/uL (0.00-0.10); Basophils % (A) 0.4 %; Eosinophils # (A) 0.02 X 10*3/uL (0.04-0.35); Eosinophils % (A) 0.1 %; HCT 28.6 % (37.2-46.3); HGB 8.4 g/dL (12.0-15.0); Immature Grans, Automated 0.6 %; Lymphocytes # (A) 0.53 X 10*3/uL (0.90-5.00); MCH 25.7 pg (27.0-32.0); MCHC 29.4 g/dL (32.0-37.0); MCV 87.5 fL (80.0-97.0); Mean Platelet Volume 9.8 fL (9.5-12.2); Monocytes # (A) 0.54 X 10*3/uL (0.20-1.00); Monocytes % (A) 3.1 %; NRBC Per 100 WBC 0 /100 WBCS (0.0-0.0); Neutrophils # (A) 16.13 X 10*3/uL (1.80-7.70); Neutrophils % (A) 92.8 %; Platelet Count 323 X 10*3/uL (140-440); RBC 3.27 X 10*6/uL (4.10-5.20); RDW 18.2 % (11.5-14.5); WBC 17.39 X 10*3/uL (4.50-10.00)
[2021-06-09] MEDS: MAGNESIUM SULFATE-D5W PMX 1 GM in DEXTROSE/WATER 1 100ML.BAG IVPB SCH ×2 (11:15→11:53)
[2021-06-09] MEDS ORDERED: SODIUM CHLORIDE 0.9% 500 ML 500 ML IV ONE (14:09)
[2021-06-09] MEDS: CEFEPIME 2 GM in SODIUM CHLORIDE 0.9% 100 ML IVPB SCH (17:54)
--- NOTE | 2021-06-09 18:20 | US ---
EXAMINATION TYPE: US liver DATE OF EXAM: 06/09/2021 COMPARISON: NONE CLINICAL HISTORY: elevated liver enzymes. abnormal labs EXAM MEASUREMENTS: Liver Length: 17.4 cm Gallbladder Wall: 0.1 cm CBD: 0.3 cm Right Kidney: 4.9 x 3.7 x 2.5 cm Pancreas: Limited visualization Liver: wnl Gallbladder: possible mobile sludge vs stones Evidence for sonographic Almaguer's sign: neg CBD: wnl Right Kidney: Appears small in size, cortical thinning, echogenic IMPRESSION: There are small echogenic foci in the gallbladder consistent with tiny gallstones. No dilated ducts.
[2021-06-09] MEDS: MIRTAZAPINE 45 MG TABLET PO SCH (21:11)
--- NOTE | 2021-06-09 23:43 | P.CONS ---
History of Present Illness - Reason for Consult Consult date: 06/09/21 UTI elevated temperature Requesting physician: Palmer Desir - Chief Complaint Weakness and nausea x few days - History of Present Illness Patient is a 76-year female with a past medical history significant for COPD history of recurrent pneumonia did have a history of gastrectomy anorexia cachexia and is on TPN also have a history of PICC line infection patient currently did have a right arm PICC line for outpatient IV nutrition patient presented to the [facility] ER 3 days ago for evaluation of weakness and headaches and apparently the patient was told by her [facility] specialist that her kidney function was off patient on presentation to the hospital was afebrile however the patient did spike fever last night and 1 this afternoon of 101.8 F that has prompted this infectious disease consultation patient did have a elevated white count 17.39 BUN/creatinine mildly elevated patient did have a normal liver enzymes on admission however that has sub sequently jumped up this morning urine was mildly positive matute PCR was negative urine has been finalized with Enterobacter that is resistant to Rocephin the patient was on, patient is currently complaining of feeling weak and tired, the patient denies having any headache no chest pain or shortness of breath wheezing cough patient is currently on room air has been complaining of some nausea but no vomiting no abdominal pain or diarrhea Review of Systems Positive point has been mentioned in the HPI rest of the systems are negative Past Medical History Past Medical History: Asthma, COPD, CVA/TIA, GERD/Reflux, Memory Impairment, Osteoarthritis (OA), Pneumonia, Renal Disease, Respiratory Disorder, Thyroid Disorder Additional Past Medical History / Comment(s): Aspiration, pneumonias, covid pneumonia, protein calorie malnutrition, pt is on TPN/ manage thru [facility], chronic anemia, gastric ulcers/PUD, pancreatitis, bowel obstruction/surgery, constipation, CKD stage IV, TIA, chronic migraines, chronic back/cervical pain/spinal stenosis, hypothyroid, hyponatremia. History of Any Multi-Drug Resistant Organisms: None Reported Past Surgical History: Back Surgery, Bowel Resection, Hysterectomy, Joint Replacement Additional Past Surgical History / Comment(s): LOWER BACK SURGERY lamenectomy/discetomy then had a revison of that sx. 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, nasal sx d/t broken nose, colonoscopy/egd, PAIN CLINIC PROCEDURES, PORT A CATH INSERTION, LT ADEOLA Past Anesthesia/Blood Transfusion Reactions: No Reported Reaction Additional Past Anesthesia/Blood Transfusion Reaction / Comm: PT RECIEVED BLOOD TRANSFUSIONS AFTER STOMACH SURGERY Smoking Status: Never smoker - Past Family History Father Family Medical History: Cancer, Coronary Artery Disease (CAD) Additional Family Medical History / Comment(s): FATHER HAD BLADDER AND KIDNEY CANCER. FATHER HAD TB WHEN HE WAS A CHILD .FATHER AT AGE 87. Mother Family Medical History: Cancer Additional Family Medical History / Comment(s): MOTHER AT AGE 58 OF OVARIAN CANCER. Medications and Allergies Home Medications Medication Instructions Recorded Confirmed Type Ferrous Sulfate [Iron (65 MG 325 mg PO DAILY@1200 11/06/15 06/06/21 History Elemental)] Levothyroxine Sodium [Synthroid] 88 mcg PO DAILY 06/07/19 06/06/21 History calcitrioL [Calcitriol] 1 mcg PO MOWEFR 06/07/19 06/06/21 History busPIRone HCL [Buspar] 30 mg PO BID 04/14/20 06/06/21 History Potassium Chloride ER [K-Dur 10] 30 meq PO DAILY@1200 04/18/20 06/06/21 History Pantoprazole Sodium [Protonix] 40 mg PO BID 30 Days #60 tablet. 04/27/20 06/06/21 Rx Butalb/APAP/Caff 50-325-40Mg 1 tab PO BID PRN 06/30/20 06/06/21 History [Fioricet 50-325-40] buPROPion XL [Wellbutrin XL] 150 mg PO DAILY 11/04/20 06/06/21 History Furosemide [Lasix] 20 mg PO DAILY #6 tab 12/13/20 06/06/21 Rx fentaNYL 75MCG/HR PATCH [Duragesic 1 patch TRANSDERM Q72H 3 Days #3 12/13/20 06/06/21 Rx 75MCG/HR] patch Tpn 1 dose IV DAILY@1900 02/20/21 06/06/21 History buPROPion XL [Wellbutrin XL] 300 mg PO DAILY 02/20/21 06/06/21 History Albuterol Sulfate [Albuterol 2 puff INHALATION RT-Q6H PRN 04/07/21 06/06/21 History Sulfate Hfa] Budesonide/Formoterol Fumarate 2 puff INHALATION RT-BID 04/07/21 06/06/21 History [Symbicort 160-4.5 Mcg Inhaler] Loratadine [Claritin] 10 mg PO DAILY 04/07/21 06/06/21 History Mirtazapine [Remeron] 45 mg PO HS 04/07/21 06/06/21 History SUMAtriptan succinate [Imitrex] 50 mg PO BID PRN 05/04/21 06/06/21 History Thiamine [Vitamin B-1] 100 mg PO DAILY 05/04/21 06/06/21 History Aspirin EC [Ecotrin Low Dose] 81 mg PO DAILY 05/12/21 06/06/21 History hydrOXYzine pamoate [Vistaril] 50 mg PO TID 06/06/21 06/06/21 History oxyCODONE-APAP 7.5-325MG [Percocet 1 tab PO BID 06/06/21 06/06/21 History 7.5-325 mg] Allergies Allergy/AdvReac Type Severity Reaction Status Date / Time denosumab [From Prolia] Allergy SEVERE Verified 06/06/21 23:15 CALCIUM LOSS morphine AdvReac Confusion Verified 06/06/21 23:15 DUST Allergy Itching Uncoded 06/06/21 23:15 MOLDS Allergy Itching Uncoded 06/06/21 23:15 Physical Exam Vitals: Vital Signs Temp Pulse Resp BP Pulse Ox 06/09/21 14:00 101.8 F H 114 H 20 149/68 95 06/09/21 07:42 99.3 F 53 L 16 128/66 97 06/09/21 01:10 98.7 F 110 H 18 132/73 97 06/08/21 23:04 101.2 F H 06/08/21 19:33 101.2 F H 108 H 16 166/76 96 Intake and Output 06/09/21 06/09/21 06/09/21 06:59 14:59 22:59 Intake Total 0 Balance 0 Intake: Oral 0 Other: Voiding Method Toilet # Voids 1 0 GENERAL DESCRIPTION: An elderly female lying in bed, no distress. No tachypnea or accessory muscle of respiration use. HEENT: Shows Pallor , no scleral icterus. Oral mucous membrane is dry. No pharyngeal erythema or thrush NECK: Trachea central, no thyromegaly. LUNGS: Unlabored breathing. Decreased breath sound at the base. No wheeze or crackle. HEART: S1, S2, regular rate and rhythm. No loud murmur ABDOMEN: Soft, no tenderness , guarding or rigidity, no organomegaly EXTREMITIES: No edema of feet. SKIN: No rash, no masses palpable. NEUROLOGICAL: The patient is awake, alert, oriented x3, mood and affect normal. Results CBC & Chem 7: 06/09/21 07:45 06/09/21 07:45 Labs: Abnormal Lab Results - Last 24 Hours (Table) 06/09/21 06/09/21 Range/Units 07:45 07:45 WBC 17.39 H (4.50-10.00) X 10*3/uL RBC 3.27 L (4.10-5.20) X 10*6/uL Hgb 8.4 L (12.0-15.0) g/dL Hct 28.6 L (37.2-46.3) % MCH 25.7 L (27.0-32.0) pg MCHC 29.4 L (32.0-37.0) g/dL RDW 18.2 H (11.5-14.5) % Immature Gran # 0.10 H (0.00-0.04) X 10*3/uL Neutrophils # 16.13 H (1.80-7.70) X 10*3/uL Lymphocytes # 0.53 L (0.90-5.00) X 10*3/uL Eosinophils # 0.02 L (0.04-0.35) X 10*3/uL Carbon Dioxide 19 L (22-30) mmol/L BUN 26 H (7-17) mg/dL Creatinine 1.33 H (0.52-1.04) mg/dL Glucose 143 H (74-99) mg/dL AST 2046 H (14-36) U/L ALT 944 H (4-34) U/L Alkaline Phosphatase 393 H (38-126) U/L Albumin 3.2 L (3.5-5.0) g/dL Microbiology - Last 24 Hours (Table) 06/07/21 14:05 Urine Culture - Preliminary Urine,Voided Gram Neg Bacilli Assessment and Plan (1) Sepsis Current Visit: Yes Status: Acute Code(s): A41.9 - SEPSIS, UNSPECIFIED ORGANISM SNOMED Code(s): 60677592 Plan: 1-Patient presented to hospital with weakness in this patient now with evidence of sepsis with a fever elevated white count source could be urinary as the patient had mildly positive UA versus a PICC line infection. 2blood cultures will be obtained from the PICC line and peripherally. 3discontinue Rocephin and will start the patient on cefepime 2 g every 8 hour. 4gentle IV fluid We will follow on clinical condition and cultures to further adjust medication if needed Thank you for this consultation will follow this patient along with you Time with Patient: Greater than 30
[2021-06-10] MEDS: CEFEPIME 2 GM in SODIUM CHLORIDE 0.9% 100 ML IVPB SCH ×2 (02:21→08:45)
[2021-06-10] MEDS: LEVOTHYROXINE 100 MCG TAB PO SCH (05:50)
[2021-06-10] MEDS: HYDROmorphone 1 MG/ML 1 ML SYRINGE IVP PRN ×3 (05:52→18:50)
[2021-06-10 06:48] LABS: ALT 415 U/L (4-34); AST 403 U/L (14-36); African American GFR (CKD) 45 (>60 ml/min/1.73 sqM); Albumin 2.8 g/dL (3.5-5.0); Albumin/Globulin Ratio 0.9; Alkaline Phosphatase 283 U/L (38-126); Anion Gap 6 mmol/L; Blood Urea Nitrogen 30 mg/dL (7-17); Calcium 8.3 mg/dL (8.4-10.2); Carbon Dioxide 22 mmol/L (22-30); Chloride 110 mmol/L (98-107); Globulin 3.1 g/dL; Glucose 137 mg/dL (74-99); Magnesium 2.2 mg/dL (1.6-2.3); Non-African American GFR(CKD) 39 (>60 ml/min/1.73 sqM); Phosphorus 3.4 mg/dL (2.5-4.5); Potassium 4.1 mmol/L (3.5-5.1); Sodium 138 mmol/L (137-145); Total Bilirubin 0.4 mg/dL (0.2-1.3); Total Protein 5.9 g/dL (6.3-8.2)
[2021-06-10] MEDS: BUTALB/APAP/CAFF 50-325-40MG TAB PO PRN ×2 (08:04→21:30)
[2021-06-10] MEDS: SODIUM CHLORIDE 0.9% 1,000 ML IV SCH ×2 (08:10→20:39)
[2021-06-10] MEDS: SYMBICORT 160-4.5 MCG INHALER INHALATION SCH ×2 (08:12→19:03)
[2021-06-10] MEDS: LORATADINE 10 MG TAB PO SCH (08:45)
[2021-06-10] MEDS: FUROSEMIDE 20 MG TAB PO SCH (08:45)
[2021-06-10] MEDS: ASPIRIN 81 MG PO SCH (08:45)
[2021-06-10] MEDS: oxyCODONE-APAP 7.5-325MG 1 EACH TAB PO SCH ×2 (08:45→20:40)
[2021-06-10] MEDS: THIAMINE 100 MG TAB PO SCH (08:45)
[2021-06-10] MEDS: PANTOPRAZOLE 40 MG/10 ML VIAL IV SCH (08:45)
[2021-06-10] MEDS: buPROPion XL 150 MG TAB.ER.24H PO SCH (08:46)
[2021-06-10] MEDS: ENOXAPARIN 30 MG/0.3 ML SYRINGE SQ SCH (08:47)
[2021-06-10] MEDS: buPROPion XL 300 MG TAB.ER.24H PO SCH (08:47)
[2021-06-10] MEDS: hydrOXYzine pamoate 25 MG CAP PO SCH ×3 (08:47→20:41)
[2021-06-10] MEDS: busPIRone HCl 10 MG TAB PO SCH ×2 (08:47→20:40)
[2021-06-10 10:18] LABS: Basophils # (A) 0.07 X 10*3/uL (0.00-0.10); Basophils % (A) 0.5 %; Eosinophils % (A) 1.4 %; HGB 7.8 g/dL (12.0-15.0); Immature Grans, Automated 1.2 %; Lymphocytes # (A) 1.39 X 10*3/uL (0.90-5.00); Lymphocytes % (A) 9.6 %; MCH 25.6 pg (27.0-32.0); MCV 85.2 fL (80.0-97.0); Mean Platelet Volume 10.7 fL (9.5-12.2); Monocytes # (A) 0.91 X 10*3/uL (0.20-1.00); Monocytes % (A) 6.3 %; NRBC Per 100 WBC 0 /100 WBCS (0.0-0.0); Neutrophils # (A) 11.79 X 10*3/uL (1.80-7.70); Platelet Count 257 X 10*3/uL (140-440); RBC 3.05 X 10*6/uL (4.10-5.20); RDW 18.4 % (11.5-14.5); WBC 14.53 X 10*3/uL (4.50-10.00)
--- NOTE | 2021-06-10 12:29 | CDI ---
Documentation Clarification Form Date: 06/10/2021 12:18:39 PM From: Uma Alfaro [facility], CCDS Admit Date: 06/08/2021 11:24:00 AM Patient Name: Louise Sutton Visit Number: [id number] Discharge Date: ATTENTION: The Clinical Documentation Specialists (CDI) and [facility] Coding Staff appreciate your assistance in clarifying documentation. Please respond to the clarification below the line at the bottom and electronically sign. The CDI & [facility] Coding staff will review the response and follow-up if needed. Please note: Queries are made part of the Legal Health Record. If you have any questions, please contact the author of this message via ITS. Dr. Palmer Desir: History of Severe Protein Calorie Malnutrition is documented in the 06/07 History & Physical and in subsequent Progress Notes on 06/08 & 06/09. Additional clarification regarding the severity of malnutrition is requested. History/Risk Factors per the 06/07 H/P: Clinical Indicators: Asthma, COPD, GERD, Memory Impairment, Thyroid disorder, OA in neck, back & bilateral arms, PUD, Migraine headaches, Pancreatitis, Constipation, TIA, Spinal Stenosis, CKD stage IV, On TPN. Current BMI: 16.5 Dietitian Consulted for Parenteral Nutrition: Malnutrition, Chronic, severe related to increased metabolic demand, stomach removal, decreased PO intake, consuming <75% of nutritional needs >1 month. Treatment 06/06 TPN continued, Fall precautions, O2, IV Na Cl 999 mls/hr q31M, IV Zofran q8H/prn, IV Protonix 40 mg Daily. Nutrition Assessment: 0% consumed on clear liquid diet, On antiemetic, Diuretic, Iron & K supplements, PPI. Weight: 40.823 kg, Ht 5 ft 2 in BMI: 16.5 Underweight [place] Body Weight: 50 kg, 82% IBW. Please clarify the current type of malnutrition, if known: [ ] Mild Protein-Calorie Malnutrition [ ] Moderate Protein-Calorie Malnutrition [ x ] Severe Protein-Calorie Malnutrition [ ] Malnutrition following GI surgery [ ] Other condition, please specify [ ] Unable to Determine (Template Last Revised: June 2020) MTDD
[2021-06-10] MEDS: FERROUS SULFATE 325 MG TAB PO SCH (12:30)
[2021-06-10] MEDS: POTASSIUM CHLORIDE ER 10 MEQ TAB.ER.PRT PO SCH (12:30)
[2021-06-10] MEDS: ALPRAZolam 0.25 MG TAB PO PRN ×2 (13:43→21:30)
--- NOTE | 2021-06-10 18:55 | P.PN ---
Subjective Progress Note Date: 06/10/21 This is a 76-year-old female well-known to our services. Patient presented with general complaints of weakness and nausea. Patient has a past medical history of chronic TPN use due to multiple stomach surgeries managed 80 round, asthma, COPD, thyroid disorder, chronic pain, anxiety depression and panic disorder. Patient reports she has been not feeling well for the past few days denies fever. Reports some nausea. Patient also reports headache which is chronic for her. KUB x-ray completed showing nonspecific bowel gas pattern without radiographic evidence for acute process. Chest x-ray was completed showing left mid lung disease which are similar to immediate prior to visualize dating back 07/07/2020 right mid and upper lobe airspace [place]C similar to prior dating superimposed pneumonia is not entirely excluded. Patient was recently admitted and treated after sergio COVID-19 and pneumonia. Patient's creatinine on admission 2.19 bun 44. White blood cell but slightly elevated 11.8. COVID-19 negative. UA showing small amount of leukocyte Estrace urine culture ordered. At this time patient is resting comfortably in bed requesting pain medication for her chronic pain and headache. Current vitals temp 97.8, pulse rate 86, respiratory rate 18 blood pressure 124/73 oxygen saturation 96 on room air On 06/08/2021 patient was seen and examined on the medical floor she is alert and oriented 3 in no apparent distress there is no fever or chills no headache or dizziness no chest pain no shortness of breath no cough no nausea or vomiting no abdominal pain no diarrhea no blood in the stools no burning with urination no frequency or urgency no hematuria . Vital exam reveals a temperature of 98.1 pulse 80 respiration 18 blood pressure 150/77 pulse ox 99% on room air laboratory data reveals a white blood count of 7.7 hemoglobin 9.2 platelet count 458 BUN 23 creatinine 1.4 On 06/09/2021 patient is alert and oriented 3. Patient complaining of headache. Patient had temperature yesterday 101.2 patient remains on Rocephin for urinary tract infection. Pulmonary services are following. Patient is complaining of mild flank pain. Patient denies chest pain. Patient complaining of occasional nausea. Patient denies any urinary burning or frequency. On 06/10/2021 patient was seen and examined on the medical floor she is alert and oriented 3 in no apparent distress she states she is feeling somewhat better today, during the weekend patient had sudden severe elevation in her liver enzymes including AST ALT and alkaline phosphatase this was accompanied by elevated temperatures nausea and vomiting symptoms improved gradually, today liver enzymes are down. Most likely patient passed a stone through the common bile duct and had a biliary colic with elevated liver enzymes. At this time temperature had come down liver enzymes are coming down patient is maintained on IV antibiotics and is followed by infectious disease Objective - Vital Signs Vital signs: Vital Signs Temp 98.4 F 06/10/21 07:36 Pulse 74 06/10/21 07:36 Resp 16 06/10/21 07:36 BP 129/68 06/10/21 07:36 Pulse Ox 98 06/10/21 07:36 Intake & Output 06/09/21 06/10/21 06/10/21 18:59 06:59 18:59 Intake Total 1152 90 Balance 1152 90 Intake: Intake, IV Titration 1032 Amount Sodium Acetate 30 meq 1032 Potassium Phosphate 15 mmol Magnesium Sulfate 8 meq Calcium Gluconate 1 gm In Amino Acids 5 %/ Dextrose 20 % 1,000 ml @ 50 mls/hr IV .BY DURATION CHAD Rx#:[id number] Oral 120 90 Other: Voiding Method Toilet Toilet Toilet # Voids 1 1 - Exam Head normocephalic and atraumatic Neck supple no JVD no goiter Lungs clear to auscultation bilaterally no wheezing or crackles Heart regular rate and rhythm S1-S2, no rub or gallop Abdomen is soft nontender nondistended positive bowel sounds no hepatosplenomegaly Extremities no edema Neuro alert and orientated to 3 - Labs CBC & Chem 7: 06/10/21 05:57 06/10/21 05:57 Labs: Abnormal Lab Results - Last 24 Hours (Table) 06/10/21 06/10/21 Range/Units 05:57 05:57 WBC 14.53 H (4.50-10.00) X 10*3/uL RBC 3.05 L (4.10-5.20) X 10*6/uL Hgb 7.8 L (12.0-15.0) g/dL Hct 26.0 L (37.2-46.3) % MCH 25.6 L (27.0-32.0) pg MCHC 30.0 L (32.0-37.0) g/dL RDW 18.4 H (11.5-14.5) % Immature Gran # 0.17 H (0.00-0.04) X 10*3/uL Neutrophils # 11.79 H (1.80-7.70) X 10*3/uL Chloride 110 H (98-107) mmol/L BUN 30 H (7-17) mg/dL Creatinine 1.34 H (0.52-1.04) mg/dL Glucose 137 H (74-99) mg/dL Calcium 8.3 L (8.4-10.2) mg/dL AST 403 H (14-36) U/L ALT 415 H (4-34) U/L Alkaline Phosphatase 283 H (38-126) U/L Total Protein 5.9 L (6.3-8.2) g/dL Albumin 2.8 L (3.5-5.0) g/dL Microbiology - Last 24 Hours (Table) 06/09/21 17:34 Blood Culture Gram Stain - Preliminary Blood 06/09/21 17:34 Blood Culture - Final Blood 06/07/21 14:05 Urine Culture - Final Urine,Voided Enterobacter cloacae Assessment and Plan Assessment: 1. Generalized weakness and dehydration 2. Acute kidney injury. Improving 3. Urinary tract infection. Patient started on Rocephin urine culture ordered 4. History of recurrent aspiration pneumonia maintained on TPN 5. History of hypothyroidism. TSH elevated at 13.9 will increase Synthroid dose 8. History of immunoglobulin disorder 9. History of chronic pain with history of laminectomy 10. History of degenerative stress arthritis 11. History of pancreatitis 12. History of bowel obstruction 13. History of severe protein calorie malnutrition 14. History of COVID-19 infection and pneumonia 15. Severe and sudden elevation in liver enzymes yesterday including AST ALT and alkaline phosphatase, today liver enzymes are improving this could be related to a common bile duct stone will continue to monitor 16. Sepsis as evidenced by leukocytosis with elevated white blood count to 17.39 fever with temperature up to 101.2 and tachycardia DVT prophylaxis Lovenox. GI prophylaxis Protonix Home meds resumed Continue gentle hydration IV antibiotic for urinary tract infection Urine culture ordered Repeat labs ordered Patient will require home TPN
[2021-06-10] MEDS: MIRTAZAPINE 45 MG TABLET PO SCH (20:40)
[2021-06-10] MEDS: CEFEPIME 1 GM in SODIUM CHLORIDE 0.9% 50 ML IVPB SCH (20:41)
[2021-06-11] MEDS: HYDROmorphone 1 MG/ML 1 ML SYRINGE IVP PRN ×4 (01:57→22:53)
[2021-06-11] MEDS: LEVOTHYROXINE 100 MCG TAB PO SCH (05:56)
[2021-06-11] MEDS: BUTALB/APAP/CAFF 50-325-40MG TAB PO PRN ×2 (07:15→20:04)
[2021-06-11] MEDS: ASPIRIN 81 MG PO SCH (08:32)
[2021-06-11] MEDS: PANTOPRAZOLE 40 MG TABLET PO SCH (08:32)
[2021-06-11] MEDS: busPIRone HCl 10 MG TAB PO SCH ×2 (08:33→20:03)
[2021-06-11] MEDS: FUROSEMIDE 20 MG TAB PO SCH (08:33)
[2021-06-11] MEDS: oxyCODONE-APAP 7.5-325MG 1 EACH TAB PO SCH ×2 (08:33→20:05)
[2021-06-11] MEDS: THIAMINE 100 MG TAB PO SCH (08:33)
[2021-06-11] MEDS: LORATADINE 10 MG TAB PO SCH (08:34)
[2021-06-11] MEDS: buPROPion XL 150 MG TAB.ER.24H PO SCH (08:34)
[2021-06-11] MEDS: hydrOXYzine pamoate 25 MG CAP PO SCH ×3 (08:34→20:04)
[2021-06-11] MEDS: buPROPion XL 300 MG TAB.ER.24H PO SCH (08:34)
[2021-06-11] MEDS: ENOXAPARIN 30 MG/0.3 ML SYRINGE SQ SCH (08:35)
[2021-06-11] MEDS: CEFEPIME 1 GM in SODIUM CHLORIDE 0.9% 50 ML IVPB SCH ×2 (08:35→20:05)
[2021-06-11] MEDS: SODIUM CHLORIDE 0.9% 1,000 ML IV SCH ×2 (08:39→22:56)
[2021-06-11] MEDS: SYMBICORT 160-4.5 MCG INHALER INHALATION SCH ×2 (09:10→20:43)
[2021-06-11 09:31] LABS: African American GFR (CKD) 49 (>60 ml/min/1.73 sqM); Anion Gap 7 mmol/L; Blood Urea Nitrogen 36 mg/dL (7-17); Calcium 8.8 mg/dL (8.4-10.2); Carbon Dioxide 20 mmol/L (22-30); Chloride 109 mmol/L (98-107); Glucose 126 mg/dL (74-99); Magnesium 2.3 mg/dL (1.6-2.3); Non-African American GFR(CKD) 43 (>60 ml/min/1.73 sqM); Phosphorus 3.4 mg/dL (2.5-4.5); Sodium 136 mmol/L (137-145)
[2021-06-11] MEDS: FERROUS SULFATE 325 MG TAB PO SCH (12:15)
[2021-06-11] MEDS: POTASSIUM CHLORIDE ER 10 MEQ TAB.ER.PRT PO SCH (12:15)
[2021-06-11] MEDS: ALPRAZolam 0.25 MG TAB PO PRN ×2 (12:15→20:05)
--- NOTE | 2021-06-11 18:24 | P.PN ---
Subjective Progress Note Date: 06/11/21 This is a 76-year-old female well-known to our services. Patient presented with general complaints of weakness and nausea. Patient has a past medical history of chronic TPN use due to multiple stomach surgeries managed 80 round, asthma, COPD, thyroid disorder, chronic pain, anxiety depression and panic disorder. Patient reports she has been not feeling well for the past few days denies fever. Reports some nausea. Patient also reports headache which is chronic for her. KUB x-ray completed showing nonspecific bowel gas pattern without radiographic evidence for acute process. Chest x-ray was completed showing left mid lung disease which are similar to immediate prior to visualize dating back 07/07/2020 right mid and upper lobe airspace OKC similar to prior dating superimposed pneumonia is not entirely excluded. Patient was recently admitted and treated after sergio COVID-19 and pneumonia. Patient's creatinine on admission 2.19 bun 44. White blood cell but slightly elevated 11.8. COVID-19 negative. UA showing small amount of leukocyte Estrace urine culture ordered. At this time patient is resting comfortably in bed requesting pain medication for her chronic pain and headache. Current vitals temp 97.8, pulse rate 86, respiratory rate 18 blood pressure 124/73 oxygen saturation 96 on room air On 06/08/2021 patient was seen and examined on the medical floor she is alert and oriented 3 in no apparent distress there is no fever or chills no headache or dizziness no chest pain no shortness of breath no cough no nausea or vomiting no abdominal pain no diarrhea no blood in the stools no burning with urination no frequency or urgency no hematuria . Vital exam reveals a temperature of 98.1 pulse 80 respiration 18 blood pressure 150/77 pulse ox 99% on room air laboratory data reveals a white blood count of 7.7 hemoglobin 9.2 platelet count 458 BUN 23 creatinine 1.4 On 06/09/2021 patient is alert and oriented 3. Patient complaining of headache. Patient had temperature yesterday 101.2 patient remains on Rocephin for urinary tract infection. Pulmonary services are following. Patient is complaining of mild flank pain. Patient denies chest pain. Patient complaining of occasional nausea. Patient denies any urinary burning or frequency. On 06/10/2021 patient was seen and examined on the medical floor she is alert and oriented 3 in no apparent distress she states she is feeling somewhat better today, during the weekend patient had sudden severe elevation in her liver enzymes including AST ALT and alkaline phosphatase this was accompanied by elevated temperatures nausea and vomiting symptoms improved gradually, today liver enzymes are down. Most likely patient passed a stone through the common bile duct and had a biliary colic with elevated liver enzymes. At this time temperature had come down liver enzymes are coming down patient is maintained on IV antibiotics and is followed by infectious disease On 06/11/2021 patient was seen and examined on the medical floor she is alert and oriented 3 in no apparent distress there is no fever or chills no headache or dizziness no chest pain no shortness of breath no cough no nausea or vomiting no abdominal pain no diarrhea no blood in the stools no burning with urination no frequency or urgency and no hematuria Objective - Vital Signs Vital signs: Vital Signs Temp 97.5 F L 06/11/21 07:04 Pulse 78 06/11/21 07:04 Resp 16 06/11/21 07:04 BP 130/76 06/11/21 07:04 Pulse Ox 98 06/11/21 07:04 Intake & Output 06/10/21 06/11/21 06/11/21 18:59 06:59 18:59 Intake Total 330 Balance 330 Weight 40.823 kg Intake: Oral 330 Other: Voiding Method Toilet Toilet Toilet # Voids 1 2 - Exam Head normocephalic and atraumatic Neck supple no JVD no goiter Lungs clear to auscultation bilaterally no wheezing or crackles Heart regular rate and rhythm S1-S2, no rub or gallop Abdomen is soft nontender nondistended positive bowel sounds no hepa tosplenomegaly Extremities no edema Neuro alert and orientated to 3 - Labs CBC & Chem 7: 06/10/21 05:57 06/11/21 07:43 Labs: Abnormal Lab Results - Last 24 Hours (Table) 06/10/21 Range/Units 05:57 WBC 14.53 H (4.50-10.00) X 10*3/uL RBC 3.05 L (4.10-5.20) X 10*6/uL Hgb 7.8 L (12.0-15.0) g/dL Hct 26.0 L (37.2-46.3) % MCH 25.6 L (27.0-32.0) pg MCHC 30.0 L (32.0-37.0) g/dL RDW 18.4 H (11.5-14.5) % Immature Gran # 0.17 H (0.00-0.04) X 10*3/uL Neutrophils # 11.79 H (1.80-7.70) X 10*3/uL Microbiology - Last 24 Hours (Table) 06/09/21 17:12 Blood Culture - Preliminary Blood No Growth after 24 hours 06/09/21 17:34 Blood Culture Gram Stain - Preliminary Blood Blood Culture - Preliminary Staphylococcus epidermidis 06/09/21 17:34 Blood Culture - Final Blood Assessment and Plan Assessment: 1. Generalized weakness and dehydration 2. Acute kidney injury. Improving 3. Urinary tract infection. Patient started on Rocephin urine culture ordered 4. History of recurrent aspiration pneumonia maintained on TPN 5. History of hypothyroidism. TSH elevated at 13.9 will increase Synthroid dose 8. History of immunoglobulin disorder 9. History of chronic pain with history of laminectomy 10. History of degenerative stress arthritis 11. History of pancreatitis 12. History of bowel obstruction 13. History of severe protein calorie malnutrition 14. History of COVID-19 infection and pneumonia 15. Severe and sudden elevation in liver enzymes yesterday including AST ALT and alkaline phosphatase, today liver enzymes are improving this could be related to a common bile duct stone will continue to monitor 16. Sepsis as evidenced by leukocytosis with elevated white blood count to 17.39 fever with temperature up to 101.2 and tachycardia DVT prophylaxis Lovenox. GI prophylaxis Protonix Home meds resumed Continue gentle hydration IV antibiotic for urinary tract infection Urine culture ordered Repeat labs ordered Patient will require home TPN
[2021-06-11] MEDS: MIRTAZAPINE 45 MG TABLET PO SCH (20:05)
--- NOTE | 2021-06-11 23:21 | P.PN ---
Subjective Progress Note Date: 06/10/21 Principal diagnosis: Sepsis Patient is a 76-year-old female with multiple comorbidities admitted to the hospital with weakness patient also have an episode of sepsis with fever and elevated white count and did have a jump in the liver enzymes with a question of possible possible stones and did have a positive UA with Enterobacter. On today's evaluation that is 06/10/2021, the patient denies having any fever or chills, the patient is feeling slightly better, denies any chest pain shortness of breath or cough no nausea vomiting no abdominal pain or diarrhea Objective - Vital Signs Vital signs: Vital Signs Temp 98.4 F 06/10/21 07:36 Pulse 74 06/10/21 07:36 Resp 16 06/10/21 07:36 BP 129/68 06/10/21 07:36 Pulse Ox 98 06/10/21 07:36 Intake & Output 06/09/21 06/10/21 06/10/21 18:59 06:59 18:59 Intake Total 1152 Balance 1152 Intake: Intake, IV Titration 1032 Amount Sodium Acetate 30 meq 1032 Potassium Phosphate 15 mmol Magnesium Sulfate 8 meq Calcium Gluconate 1 gm In Amino Acids 5 %/ Dextrose 20 % 1,000 ml @ 50 mls/hr IV .BY DURATION CHAD Rx#:[id number] Oral 120 Other: Voiding Method Toilet Toilet Toilet # Voids 1 1 - Exam GENERAL DESCRIPTION: An elderly female lying in bed in no distress RESPIRATORY SYSTEM: Unlabored breathing , decreased breath sounds at bases HEART: S1 S2 regular rate and rhythm , ABDOMEN: Soft , no tenderness EXTREMITIES: No edema feet - Labs CBC & Chem 7: 06/10/21 05:57 06/11/21 07:43 Labs: Abnormal Lab Results - Last 24 Hours (Table) 06/09/21 06/10/21 Range/Units 07:45 05:57 WBC 17.39 H (4.50-10.00) X 10*3/uL RBC 3.27 L (4.10-5.20) X 10*6/uL Hgb 8.4 L (12.0-15.0) g/dL Hct 28.6 L (37.2-46.3) % MCH 25.7 L (27.0-32.0) pg MCHC 29.4 L (32.0-37.0) g/dL RDW 18.2 H (11.5-14.5) % Immature Gran # 0.10 H (0.00-0.04) X 10*3/uL Neutrophils # 16.13 H (1.80-7.70) X 10*3/uL Lymphocytes # 0.53 L (0.90-5.00) X 10*3/uL Eosinophils # 0.02 L (0.04-0.35) X 10*3/uL Chloride 110 H (98-107) mmol/L BUN 30 H (7-17) mg/dL Creatinine 1.34 H (0.52-1.04) mg/dL Glucose 137 H (74-99) mg/dL Calcium 8.3 L (8.4-10.2) mg/dL AST 403 H (14-36) U/L ALT 415 H (4-34) U/L Alkaline Phosphatase 283 H (38-126) U/L Total Protein 5.9 L (6.3-8.2) g/dL Albumin 2.8 L (3.5-5.0) g/dL Microbiology - Last 24 Hours (Table) 06/07/21 14:05 Urine Culture - Final Urine,Voided Enterobacter cloacae Assessment and Plan (1) Sepsis Current Visit: Yes Status: Acute Code(s): A41.9 - SEPSIS, UNSPECIFIED ORGANISM SNOMED Code(s): 02977675 Plan: 1-Patient presented to hospital with weakness in this patient now with evidence of sepsis with a fever elevated white count source could be urinary as the patient had mildly positive UA and culture for possible cholangitis with elevated liver enzymes versus a PICC line infection. 2blood cultures will be obtained from the PICC line and peripherally which are currently pending. 3patient to continue with cefepime 2 g every 8 hour. 4gentle IV fluid Time with Patient: Less than 30
--- NOTE | 2021-06-11 23:23 | P.PN ---
Subjective Progress Note Date: 06/11/21 Principal diagnosis: Sepsis Patient is a 76-year-old female with multiple comorbidities admitted to the hospital with weakness patient also have an episode of sepsis with fever and elevated white count and did have a jump in the liver enzymes with a question of possible possible stones and did have a positive UA with Enterobacter. On today's evaluation that is 06/11/2021, the patient remains to be afebrile, the patient is feeling slightly better, the patient denies any chest pain shortness of breath or cough no nausea vomiting no abdominal pain or diarrhea Objective - Vital Signs Vital signs: Vital Signs Temp 98.0 F 06/11/21 14:00 Pulse 90 06/11/21 14:00 Resp 18 06/11/21 14:00 BP 119/69 06/11/21 14:00 Pulse Ox 97 06/11/21 14:00 Intake & Output 06/11/21 06/11/21 06/12/21 06:59 18:59 06:59 Other: Voiding Method Toilet Toilet # Voids 2 - Exam GENERAL DESCRIPTION: An elderly female lying in bed in no distress RESPIRATORY SYSTEM: Unlabored breathing , decreased breath sounds at bases HEART: S1 S2 regular rate and rhythm , ABDOMEN: Soft , no tenderness EXTREMITIES: No edema feet - Labs CBC & Chem 7: 06/10/21 05:57 06/11/21 07:43 Labs: Abnormal Lab Results - Last 24 Hours (Table) 06/11/21 Range/Units 07:43 Sodium 136 L (137-145) mmol/L Chloride 109 H (98-107) mmol/L Carbon Dioxide 20 L (22-30) mmol/L BUN 36 H (7-17) mg/dL Creatinine 1.24 H (0.52-1.04) mg/dL Glucose 126 H (74-99) mg/dL Microbiology - Last 24 Hours (Table) 06/09/21 17:12 Blood Culture - Preliminary Blood No Growth after 48 hours Assessment and Plan (1) Sepsis Current Visit: Yes Status: Acute Code(s): A41.9 - SEPSIS, UNSPECIFIED ORGANISM SNOMED Code(s): 81623952 Plan: 1-Patient presented to hospital with weakness in this patient now with evidence of sepsis with a fever elevated white count source could be urinary as the patient had mildly positive UA and culture for possible cholangitis with elevated liver enzymes versus a PICC line infection. 2blood cultures are now growing staph epi with a question of skin contaminate however PICC line infection is to be do not blood cultures will be repeated today peripheral as well as for the PICC line 3patient to continue with cefepime 2 g every 8 hour. Time with Patient: Less than 30
[2021-06-12] MEDS ORDERED: [UNRECOGNIZED DRUG - OTHER] IV SCH ×7
[2021-06-12] MEDS ORDERED: POTASSIUM PHOSPHATE IV SCH ×7
[2021-06-12] MEDS: LEVOTHYROXINE 100 MCG TAB PO SCH (05:14)
[2021-06-12] MEDS: HYDROmorphone 1 MG/ML 1 ML SYRINGE IVP PRN ×4 (05:14→22:54)
[2021-06-12] MEDS: ALPRAZolam 0.25 MG TAB PO PRN ×3 (05:21→19:35)
[2021-06-12 08:19] LABS: ALT 188 U/L (4-34); AST 59 U/L (14-36); African American GFR (CKD) 48 (>60 ml/min/1.73 sqM); Albumin/Globulin Ratio 0.9; Alkaline Phosphatase 257 U/L (38-126); Anion Gap 5 mmol/L; Blood Urea Nitrogen 39 mg/dL (7-17); Calcium 9.1 mg/dL (8.4-10.2); Carbon Dioxide 22 mmol/L (22-30); Chloride 107 mmol/L (98-107); Globulin 3.2 g/dL; Glucose 124 mg/dL (74-99); Magnesium 2.3 mg/dL (1.6-2.3); Non-African American GFR(CKD) 42 (>60 ml/min/1.73 sqM); Phosphorus 3.3 mg/dL (2.5-4.5); Potassium 5.3 mmol/L (3.5-5.1); Sodium 134 mmol/L (137-145); Total Bilirubin 0.4 mg/dL (0.2-1.3); Total Protein 6.2 g/dL (6.3-8.2)
[2021-06-12] MEDS: SYMBICORT 160-4.5 MCG INHALER INHALATION SCH ×2 (08:21→19:31)
[2021-06-12] MEDS: oxyCODONE-APAP 7.5-325MG 1 EACH TAB PO SCH ×2 (08:38→19:36)
[2021-06-12] MEDS: PANTOPRAZOLE 40 MG TABLET PO SCH (08:38)
[2021-06-12] MEDS: LORATADINE 10 MG TAB PO SCH (08:38)
[2021-06-12] MEDS: ASPIRIN 81 MG PO SCH (08:38)
[2021-06-12] MEDS: FUROSEMIDE 20 MG TAB PO SCH (08:38)
[2021-06-12] MEDS: ENOXAPARIN 30 MG/0.3 ML SYRINGE SQ SCH (08:39)
[2021-06-12] MEDS: THIAMINE 100 MG TAB PO SCH (08:39)
[2021-06-12] MEDS: busPIRone HCl 10 MG TAB PO SCH ×2 (08:39→19:37)
[2021-06-12] MEDS: buPROPion XL 150 MG TAB.ER.24H PO SCH (08:40)
[2021-06-12] MEDS: buPROPion XL 300 MG TAB.ER.24H PO SCH (08:40)
[2021-06-12] MEDS: hydrOXYzine pamoate 25 MG CAP PO SCH ×3 (08:40→19:37)
[2021-06-12] MEDS: CEFEPIME 1 GM in SODIUM CHLORIDE 0.9% 50 ML IVPB SCH ×2 (09:10→19:35)
--- NOTE | 2021-06-12 09:31 | CDI ---
Documentation Clarification Form Date: 06/12/2021 09:18:00 AM From: Uma Alfaro CCS, CCDS Admit Date: 06/08/2021 11:24:00 AM Patient Name: Louise Sutton Visit Number: [id number] Discharge Date: ATTENTION: The Clinical Documentation Specialists (CDI) and [facility] Coding Staff appreciate your assistance in clarifying documentation. Please respond to the clarification below the line at the bottom and electronically sign. The CDI & [facility] Coding staff will review the response and follow-up if needed. Please note: Queries are made part of the Legal Health Record. If you have any questions, please contact the author of this message via ITS. Dr. Palmer Desir: Per the 06/07 History & Physical: Chest x-ray was completed showing left mid lung disease which are similar to immediate prior to visualize dating back 07/07/2020 right mid and upper lobe airspace [place] similar to prior dating superimposed pneumonia is not entirely excluded. Patient was recently admitted and treated after sergio COVID-19 and pneumonia. Assessment: History of recurrent aspiration pneumonia maintained on TPN. History of COVID-19 infection and pneumonia. Additional clarification regarding the acuity & type of pneumonia is requested. History/Risk Factors per the 06/07 H/P: Chronic TPN due to multiple stomach surgeries, Asthma, COPD, Thyroid Disorder, Chronic pain, Anxiety, Depression and Panic Disorder, Chronic Headaches, Recurrent Aspiration Pneumonia, CKD IV, Pancreatitis. Clinical Indicators: Presented to the ED on 06/06 with Weakness and confusion. TPN is managed by a specialist at [facility] status Gastrectomy for Gastric Ulcers. Renal function increased and dehydrated, complaining of chronic headache, vomited x1, lightheadedness, no fever or chills. Admitted with Dehydration, SHERRY and Failure to Thrive. 06/06 VS: T 98.6, P 102, R 16, BP 148/83, PO 97 RA, BMI: 16.5 06/08 VS: T 98, P 77, R 16, BP 150/77, PO 99 RA 06/06 LAB: WBC 11.8, Hgb 9.1, Hct 29.1, Pl Ct 465, Neut 9.0; CO2 20, BUN 44, Cr 2.19, Alk Phos 277, TSH 13.900 06/06 UA: Clear, Neg nitrite, WBC 9. 06/09 LAB: WBC 17.39, Hgb 8.4, Hct 28.6, CO2 19, BUN 26, Cr 1.33, Glucose 143, AST 2046, ALT 944, Alk Phos 393, Albumin 3.2 06/07 Urine Culture: Final: Enterobacter cloacae 06/09 Blood Culture: Preliminary: Staphylococcus epidermidis Please clarify the following: [ ] Aspiration Pneumonia, Due to food or vomitus [ ] Bacterial Pneumonia, specify causal organism (if known) [ ] Gram Negative Bacterial Pneumonia, please specify organism: [ ] Other Pneumonia, please specify: [ ] Pneumonia ruled out [ ] Unable to determine (Template Last Revised: June 2020) MTDD
--- NOTE | 2021-06-12 09:38 | CDI ---
Documentation Clarification Form Date: 06/12/2021 09:18:00 AM From: Uma Alfaro CCS, CCDS Admit Date: 06/08/2021 11:24:00 AM Patient Name: Louise Sutton Visit Number: [id number] Discharge Date: ATTENTION: The Clinical Documentation Specialists (CDI) and [facility] Coding Staff appreciate your assistance in clarifying documentation. Please respond to the clarification below the line at the bottom and electronically sign. The CDI & [facility] Coding staff will review the response and follow-up if needed. Please note: Queries are made part of the Legal Health Record. If you have any questions, please contact the author of this message via ITS. Dr. Palmer Desir: Per the 06/07 History & Physical: Chest x-ray was completed showing left mid lung disease which are similar to immediate prior to visualize dating back 07/07/2020 right mid and upper lobe airspace [place]C similar to prior dating superimposed pneumonia is not entirely excluded. Patient was recently admitted and treated after sergio COVID-19 and pneumonia. Assessment: History of recurrent aspiration pneumonia maintained on TPN. History of COVID-19 infection and pneumonia. Additional clarification regarding the acuity & type of pneumonia is requested. History/Risk Factors per the 06/07 H/P: Chronic TPN due to multiple stomach surgeries, Asthma, COPD, Thyroid Disorder, Chronic pain, Anxiety, Depression and Panic Disorder, Chronic Headaches, Recurrent Aspiration Pneumonia, CKD IV, Pancreatitis. Clinical Indicators: Presented to the ED on 06/06 with Weakness and confusion. TPN is managed by a specialist at U/[facility] status Gastrectomy for Gastric Ulcers. Renal function increased and dehydrated, complaining of chronic headache, vomited x1, lightheadedness, no fever or chills. Admitted with Dehydration, SHERRY and Failure to Thrive. 06/06 VS: T 98.6, P 102, R 16, BP 148/83, PO 97 RA, BMI: 16.5 06/08 VS: T 98, P 77, R 16, BP 150/77, PO 99 RA 06/06 LAB: WBC 11.8, Hgb 9.1, Hct 29.1, Pl Ct 465, Neut 9.0; CO2 20, BUN 44, Cr 2.19, Alk Phos 277, TSH 13.900 06/06 UA: Clear, Neg nitrite, WBC 9. 2 LAB: WBC 17.39, Hgb 8.4, Hct 28.6, CO2 19, BUN 26, Cr 1.33, Glucose 143, AST 2046, ALT 944, Alk Phos 393, Albumin 3.2 06/07 Urine Culture: Final: Enterobacter cloacae 06/09 Blood Culture: Preliminary: Staphylococcus epidermidis 06/06 CXR: Left mid lung disease similar to prior. Superimposed pneumonia is not entirely excluded. 06/07 CXR: Findings are similar to prior chest x-ray with findings suggestive of COPD and chronic interstitial lung disease. Patchy pneumonia or infiltrate in the right upper lobe is stable. Masslike consolidation in the left lung could represent pneumonia or neoplasm and is similar to prior exam. Treatment 06/06 TPN continued, Fall precautions, O2, IV Na Cl 999 mls/hr q31M, IV Zofran q8H/prn, IV Protonix 40 mg Daily. 06/07: IV Rocephin 50 mls @ 100 mls/hr q12H. 06/09: IV Cefepime 100 mls @ 26 mls/hr q8H. Please clarify the following: [ x ] Aspiration Pneumonia, Due to food or vomitus [ ] Bacterial Pneumonia, specify causal organism (if known) [ ] Gram Negative Bacterial Pneumonia, please specify organism: [ ] Other Pneumonia, please specify: [ ] Pneumonia ruled out [ ] Unable to determine (Template Last Revised: June 2020) MTDD
[2021-06-12 11:07] LABS: Basophils # (A) 0.06 X 10*3/uL (0.00-0.10); Basophils % (A) 0.6 %; Eosinophils % (A) 4.7 %; HCT 27.8 % (37.2-46.3); HGB 8.2 g/dL (12.0-15.0); Lymphocytes % (A) 13.3 %; MCH 25.5 pg (27.0-32.0); MCHC 29.5 g/dL (32.0-37.0); MCV 86.3 fL (80.0-97.0); Mean Platelet Volume 11.4 fL (9.5-12.2); Monocytes # (A) 0.84 X 10*3/uL (0.20-1.00); NRBC Per 100 WBC 0 /100 WBCS (0.0-0.0); Neutrophils # (A) 7.62 X 10*3/uL (1.80-7.70); Neutrophils % (A) 72.4 %; Platelet Count 315 X 10*3/uL (140-440); RBC 3.22 X 10*6/uL (4.10-5.20); RDW 18.7 % (11.5-14.5); WBC 10.53 X 10*3/uL (4.50-10.00)
[2021-06-12] MEDS: BUTALB/APAP/CAFF 50-325-40MG TAB PO PRN ×2 (12:17→19:35)
[2021-06-12] MEDS: FERROUS SULFATE 325 MG TAB PO SCH (12:24)
[2021-06-12] MEDS: POTASSIUM CHLORIDE ER 10 MEQ TAB.ER.PRT PO SCH (12:25)
--- NOTE | 2021-06-12 13:22 | P.PN ---
Subjective Progress Note Date: 06/12/21 This is a 76-year-old female well-known to our services. Patient presented with general complaints of weakness and nausea. Patient has a past medical history of chronic TPN use due to multiple stomach surgeries managed 80 round, asthma, COPD, thyroid disorder, chronic pain, anxiety depression and panic disorder. Patient reports she has been not feeling well for the past few days denies fever. Reports some nausea. Patient also reports headache which is chronic for her. KUB x-ray completed showing nonspecific bowel gas pattern without radiographic evidence for acute process. Chest x-ray was completed showing left mid lung disease which are similar to immediate prior to visualize dating back 07/07/2020 right mid and upper lobe airspace [place]C similar to prior dating superimposed pneumonia is not entirely excluded. Patient was recently admitted and treated after sergio COVID-19 and pneumonia. Patient's creatinine on admission 2.19 bun 44. White blood cell but slightly elevated 11.8. COVID-19 negative. UA showing small amount of leukocyte Estrace urine culture ordered. At this time patient is resting comfortably in bed requesting pain medication for her chronic pain and headache. Current vitals temp 97.8, pulse rate 86, respiratory rate 18 blood pressure 124/73 oxygen saturation 96 on room air On 06/08/2021 patient was seen and examined on the medical floor she is alert and oriented 3 in no apparent distress there is no fever or chills no headache or dizziness no chest pain no shortness of breath no cough no nausea or vomiting no abdominal pain no diarrhea no blood in the stools no burning with urination no frequency or urgency no hematuria . Vital exam reveals a temperature of 98.1 pulse 80 respiration 18 blood pressure 150/77 pulse ox 99% on room air laboratory data reveals a white blood count of 7.7 hemoglobin 9.2 platelet count 458 BUN 23 creatinine 1.4 On 06/09/2021 patient is alert and oriented 3. Patient complaining of headache. Patient had temperature yesterday 101.2 patient remains on Rocephin for urinary tract infection. Pulmonary services are following. Patient is complaining of mild flank pain. Patient denies chest pain. Patient complaining of occasional nausea. Patient denies any urinary burning or frequency. On 06/10/2021 patient was seen and examined on the medical floor she is alert and oriented 3 in no apparent distress she states she is feeling somewhat better today, during the weekend patient had sudden severe elevation in her liver enzymes including AST ALT and alkaline phosphatase this was accompanied by elevated temperatures nausea and vomiting symptoms improved gradually, today liver enzymes are down. Most likely patient passed a stone through the common bile duct and had a biliary colic with elevated liver enzymes. At this time temperature had come down liver enzymes are coming down patient is maintained on IV antibiotics and is followed by infectious disease On 06/11/2021 patient was seen and examined on the medical floor she is alert and oriented 3 in no apparent distress there is no fever or chills no headache or dizziness no chest pain no shortness of breath no cough no nausea or vomiting no abdominal pain no diarrhea no blood in the stools no burning with urination no frequency or urgency and no hematuria On 06/12/2021 patient is alert and oriented 3. Patient reports that she feels much improved. AST 59, ALT 180 and alkaline phosphatase 257. Patient has remained afebrile. Patient remains on IV Maxipime. Infectious disease services are following. Patient denies chest pain or shortness of breath. Patient denies nausea vomiting or diarrhea. Patient denies any urinary burning or frequency Objective - Vital Signs Vital signs: Vital Signs Temp 97.7 F 06/12/21 07:06 Pulse 87 06/12/21 07:06 Resp 20 06/12/21 07:06 BP 131/75 06/12/21 07:06 Pulse Ox 99 06/12/21 07:06 Intake & Output 06/11/21 06/12/21 06/12/21 18:59 06:59 18:59 Other: Voiding Method Toilet Toilet Toilet # Voids 3 - Exam Head normocephalic and atraumatic Neck supple no JVD no goiter Lungs clear to auscultation bilaterally no wheezing or crackles Heart regular rate and rhythm S1-S2, no rub or gallop Abdomen is soft nontender nondistended positive bowel sounds no hepatosplenomegaly Extremities no edema Neuro alert and orientated to 3 - Labs CBC & Chem 7: 06/12/21 07:22 06/12/21 07:22 Labs: Abnormal Lab Results - Last 24 Hours (Table) 06/12/21 06/12/21 Range/Units 07: 07:22 WBC 10.53 H (4.50-10.00) X 10*3/uL RBC 3.22 L (4.10-5.20) X 10*6/uL Hgb 8.2 L (12.0-15.0) g/dL Hct 27.8 L (37.2-46.3) % MCH 25.5 L (27.0-32.0) pg MCHC 29.5 L (32.0-37.0) g/dL RDW 18.7 H (11.5-14.5) % Immature Gran # 0.11 H (0.00-0.04) X 10*3/uL Eosinophils # 0.50 H (0.04-0.35) X 10*3/uL Sodium 134 L (137-145) mmol/L Potassium 5.3 H (3.5-5.1) mmol/L BUN 39 H (7-17) mg/dL Creatinine 1.28 H (0.52-1.04) mg/dL Glucose 124 H (74-99) mg/dL AST 59 H (14-36) U/L ALT 188 H (4-34) U/L Alkaline Phosphatase 257 H (38-126) U/L Total Protein 6.2 L (6.3-8.2) g/dL Albumin 3.0 L (3.5-5.0) g/dL Microbiology - Last 24 Hours (Table) 06/11/21 11:04 Blood Culture Gram Stain - Preliminary Blood 06/11/21 11:04 Blood Culture - Final Blood 06/09/21 17:12 Blood Culture - Preliminary Blood No Growth after 48 hours Assessment and Plan Assessment: 1. Generalized weakness and dehydration 2. Acute kidney injury. Improving 3. Urinary tract infection. Patient started on Rocephin urine culture ordered 4. History of recurrent aspiration pneumonia maintained on TPN 5. History of hypothyroidism. TSH elevated at 13.9 will increase Synthroid dose 8. History of immunoglobulin disorder 9. History of chronic pain with history of laminectomy 10. History of degenerative stress arthritis 11. History of pancreatitis 12. History of bowel obstruction 13. History of severe protein calorie malnutrition 14. History of COVID-19 infection and pneumonia 15. Severe and sudden elevation in liver enzymes yesterday including AST ALT and alkaline phosphatase, today liver enzymes are improving this could be related to a common bile duct stone will continue to monitor 16. Sepsis as evidenced by leukocytosis with elevated white blood count to 17.39 fever with temperature up to 101.2 and tachycardia DVT prophylaxis Lovenox. GI prophylaxis Protonix Home meds resumed Continue gentle hydration IV antibiotic for urinary tract infection Urine culture ordered Repeat labs ordered Patient will require home TPN
[2021-06-12] MEDS: SODIUM CHLORIDE 0.9% 1,000 ML IV SCH ×2 (13:54→22:54)
[2021-06-12] MEDS: ONDANSETRON 4 MG/2 ML VIAL IVP PRN (19:34)
[2021-06-12] MEDS: MIRTAZAPINE 45 MG TABLET PO SCH (19:37)
[2021-06-12] MEDS ORDERED: SODIUM ACETATE IV SCH ×14 (20:00)
[2021-06-12] MEDS ORDERED: CALCIUM GLUCONATE IV SCH ×7 (20:00)
[2021-06-12] MEDS ORDERED: [UNRECOGNIZED DRUG - OTHER] IV SCH ×7 (20:00)
[2021-06-12] MEDS ORDERED: MAGNESIUM SULFATE IV SCH ×14 (20:00)
--- NOTE | 2021-06-12 23:38 | P.PN ---
Subjective Progress Note Date: 06/12/21 Principal diagnosis: Sepsis Patient is a 76-year-old female with multiple comorbidities admitted to the hospital with weakness patient also have an episode of sepsis with fever and elevated white count and did have a jump in the liver enzymes with a question of possible possible stones and did have a positive UA with Enterobacter. On today's evaluation that is 06/12/2021, the patient denies any fever or any chills, the patient is not feeling that good today, the patient denies any chest pain shortness of breath or cough no nausea vomiting no abdominal pain or diar william Objective - Vital Signs Vital signs: Vital Signs Temp 97.7 F 06/12/21 07:06 Pulse 87 06/12/21 07:06 Resp 20 06/12/21 07:06 BP 131/75 06/12/21 07:06 Pulse Ox 99 06/12/21 07:06 Intake & Output 06/11/21 06/12/21 06/12/21 18:59 06:59 18:59 Other: Voiding Method Toilet Toilet Toilet # Voids 3 - Exam GENERAL DESCRIPTION: An elderly female lying in bed in no distress RESPIRATORY SYSTEM: Unlabored breathing , decreased breath sounds at bases HEART: S1 S2 regular rate and rhythm , ABDOMEN: Soft , no tenderness EXTREMITIES: No edema feet - Labs CBC & Chem 7: 06/12/21 07:22 06/12/21 07:22 Labs: Abnormal Lab Results - Last 24 Hours (Table) 06/12/21 06/12/21 Range/Units 07:22 07:22 WBC 10.53 H (4.50-10.00) X 10*3/uL RBC 3.22 L (4.10-5.20) X 10*6/uL Hgb 8.2 L (12.0-15.0) g/dL Hct 27.8 L (37.2-46.3) % MCH 25.5 L (27.0-32.0) pg MCHC 29.5 L (32.0-37.0) g/dL RDW 18.7 H (11.5-14.5) % Immature Gran # 0.11 H (0.00-0.04) X 10*3/uL Eosinophils # 0.50 H (0.04-0.35) X 10*3/uL Sodium 134 L (137-145) mmol/L Potassium 5.3 H (3.5-5.1) mmol/L BUN 39 H (7-17) mg/dL Creatinine 1.28 H (0.52-1.04) mg/dL Glucose 124 H (74-99) mg/dL AST 59 H (14-36) U/L ALT 188 H (4-34) U/L Alkaline Phosphatase 257 H (38-126) U/L Total Protein 6.2 L (6.3-8.2) g/dL Albumin 3.0 L (3.5-5.0) g/dL Microbiology - Last 24 Hours (Table) 06/11/21 11:04 Blood Culture Gram Stain - Preliminary Blood 06/11/21 11:04 Blood Culture - Final Blood 06/09/21 17:12 Blood Culture - Preliminary Blood No Growth after 48 hours Assessment and Plan (1) Sepsis Current Visit: Yes Status: Acute Code(s): A41.9 - SEPSIS, UNSPECIFIED ORGANISM SNOMED Code(s): 02546386 Plan: 1-Patient presented to hospital with weakness in this patient now with evidence of sepsis with a fever elevated white count source could be urinary as the patient had mildly positive UA and culture for possible cholangitis with elevated liver enzymes versus a PICC line infection. 2blood cultures are now growing staph epi with a question of skin contaminate however blood cultures obtained from the PICC yesterday BE positive as well he will add daptomycin and continue with the cefepime Time with Patient: Less than 30
[2021-06-13] MEDS: LEVOTHYROXINE 100 MCG TAB PO SCH (05:19)
[2021-06-13] MEDS: HYDROmorphone 1 MG/ML 1 ML SYRINGE IVP PRN ×4 (05:19→23:39)
[2021-06-13 08:03] LABS: ALT 149 U/L (4-34); AST 46 U/L (14-36); African American GFR (CKD) 42 (>60 ml/min/1.73 sqM); Albumin 3.1 g/dL (3.5-5.0); Alkaline Phosphatase 264 U/L (38-126); Anion Gap 8 mmol/L; Blood Urea Nitrogen 45 mg/dL (7-17); Calcium 9.2 mg/dL (8.4-10.2); Carbon Dioxide 23 mmol/L (22-30); Chloride 105 mmol/L (98-107); Globulin 3.2 g/dL; Glucose 120 mg/dL (74-99); Magnesium 2.4 mg/dL (1.6-2.3); Non-African American GFR(CKD) 37 (>60 ml/min/1.73 sqM); Phosphorus 4.2 mg/dL (2.5-4.5); Potassium 4.9 mmol/L (3.5-5.1); Sodium 136 mmol/L (137-145); Total Bilirubin 0.3 mg/dL (0.2-1.3); Total Protein 6.3 g/dL (6.3-8.2)
[2021-06-13] MEDS ORDERED: SODIUM CHLORIDE 0.9% 1,000 ML IV STA ×2 (08:04→18:58)
[2021-06-13] MEDS: SYMBICORT 160-4.5 MCG INHALER INHALATION SCH ×4 (08:06→20:14)
[2021-06-13] MEDS: CEFEPIME 1 GM in SODIUM CHLORIDE 0.9% 50 ML IVPB SCH ×2 (09:13→20:20)
[2021-06-13] MEDS: ASPIRIN 81 MG PO SCH (09:15)
[2021-06-13] MEDS: LORATADINE 10 MG TAB PO SCH (09:16)
[2021-06-13] MEDS: buPROPion XL 150 MG TAB.ER.24H PO SCH (09:17)
[2021-06-13] MEDS: buPROPion XL 300 MG TAB.ER.24H PO SCH (09:17)
[2021-06-13] MEDS: busPIRone HCl 10 MG TAB PO SCH ×2 (09:18→20:19)
[2021-06-13] MEDS: FUROSEMIDE 20 MG TAB PO SCH (09:19)
[2021-06-13] MEDS: hydrOXYzine pamoate 25 MG CAP PO SCH ×3 (09:20→20:19)
[2021-06-13] MEDS: THIAMINE 100 MG TAB PO SCH (09:20)
[2021-06-13] MEDS: oxyCODONE-APAP 7.5-325MG 1 EACH TAB PO SCH ×2 (09:21→20:18)
[2021-06-13] MEDS: PANTOPRAZOLE 40 MG TABLET PO SCH (09:21)
[2021-06-13] MEDS: ENOXAPARIN 30 MG/0.3 ML SYRINGE SQ SCH (09:22)
[2021-06-13] MEDS: ONDANSETRON 4 MG/2 ML VIAL IVP PRN (09:42)
--- NOTE | 2021-06-13 11:22 | CDI ---
Documentation Clarification Form Date: 06/13/2021 10:54:55 AM From: Uma Alfaro CCS, CCDS Admit Date: 06/08/2021 11:24:00 AM Patient Name: Louise Sutton Visit Number: [id number] Discharge Date: ATTENTION: The Clinical Documentation Specialists (CDI) and [facility] Coding Staff appreciate your assistance in clarifying documentation. Please respond to the clarification below the line at the bottom and electronically sign. The CDI & [facility] Coding staff will review the response and follow-up if needed. Please note: Queries are made part of the Legal Health Record. If you have any questions, please contact the author of this message via ITS. Dr. Jas Gregorio: The patient is diagnosed with Sepsis. Per the Infectious Disease Consult and subsequent Progress Notes the source could be urinary with mildly positive UA or cholangitis with elevated liver enzymes vs PICC line infection. Additional clarification regarding the source of the patient's Sepsis is requested. 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 Clinical Indicators: Presented to the ED on 06/06 with Weakness and Confusion. Renal function is increased, Dehydrated, Headache. Admit with Dehydration, SHERRY & Failure to Thrive. 06/07 H/P Assessment: Generalized weakness & Dehydration, SHERRY, UTI, History of recurrent Aspiration Pneumonia, History of COVID 19 and Pneumonia. Sepsis is documented in the Infectious Disease Consult and in subsequent Attending Physician & Infectious Disease Progress Notes. 06/06 VS: T 98.6, P 102, R 16, BP 148/83, PO 97 RA 06/08 VS: T 98, P 77, R 16, BP 150/77, PO 99 RA 06/06 LAB: WBC 11.8, Neut 9.0; AST 31, ALT 23, Alk Phos 277 06/06 UA: Clear, Small esterase, WBC 9 06/08 LAB: WBC 7.71, Neut 60.1, EOS 0.49; Total Bili <0.15, AST 14, AT 14, Alk Phos 237 06/09 LAB: WBC 17.39, Neut 92.8, AST 3046, ALT 944, Alk Phos 393 06/07 Urine Culture (Final): Enterobacter cloacae. 06/09 Blood Culture x3 (1 Preliminary: neg after 72 hrs, 2 Final: 1 neg, 1 positive for Staphlococcus epidermidis. 06/11 Blood Culture x3 (1 Preliminary: neg after 24 hrs, 1 Final, 1 Preliminary 06/06 KUB: Nonspecific bowel gas pattern w/o radiographic evidence for acute process. 06/09 US Liver: Small echogenic foci in the gallbladder consistent with tiny gallstones. No dilated ducts. Treatment 06/06: IV Na Cl 500 mls @ 900 mls/hr q31M, IV Zofran 4 mg q8H, IV Protonix 40 mg Daily, IV Na Cl 1,000 mls @ 75 mls/hr q13H. 06/07: TPN, IV Rocephin 50 mls @ 100 mls/hr q12H 06/08: TPN, IV Tylenol 100 mls @ 400 mls/hr q8H, IV Mag Sulfate/Dextrose 100 mls @ 100 mls/hr q1H 06/09: IV Na Cl 500 mls @ 999 mls/hr q31M, IV Cefepime 100 mls @ 25 mls/hr q8H 06/10: IV Cefepime 50 mls @ 12.5 mls/hr q12H Can you please clarify the source of the patient's Sepsis and clarify if Present on Admission: [ ] Sepsis due to positive UA [ ] Sepsis due to possible Cholangitis [ x] Sepsis due to possible PICC Line Infection [ ] Other source of Sepsis, please specify: [ ] Unable to determine [ x ] Present on Admission [ ] Not Present on Admission (Template Last Revised: June 2020) MTDD
[2021-06-13] MEDS: FERROUS SULFATE 325 MG TAB PO SCH (12:07)
[2021-06-13] MEDS: BUTALB/APAP/CAFF 50-325-40MG TAB PO PRN (13:26)
[2021-06-13] MEDS: ALPRAZolam 0.25 MG TAB PO PRN (15:27)
[2021-06-13] MEDS ORDERED: [UNRECOGNIZED DRUG - OTHER] IV SCH ×7 (16:30)
[2021-06-13] MEDS ORDERED: MAGNESIUM SULFATE IV SCH ×7 (16:30)
[2021-06-13] MEDS ORDERED: CALCIUM GLUCONATE IV SCH ×7 (16:30)
[2021-06-13] MEDS ORDERED: SODIUM ACETATE IV SCH ×7 (16:30)
--- NOTE | 2021-06-13 17:07 | P.PN ---
Subjective Progress Note Date: 06/13/21 This is a 76-year-old female well-known to our services. Patient presented with general complaints of weakness and nausea. Patient has a past medical history of chronic TPN use due to multiple stomach surgeries managed 80 round, asthma, COPD, thyroid disorder, chronic pain, anxiety depression and panic disorder. Patient reports she has been not feeling well for the past few days denies fever. Reports some nausea. Patient also reports headache which is chronic for her. KUB x-ray completed showing nonspecific bowel gas pattern without radiographic evidence for acute process. Chest x-ray was completed showing left mid lung disease which are similar to immediate prior to visualize dating back 07/07/2020 right mid and upper lobe airspace OKC similar to prior dating superimposed pneumonia is not entirely excluded. Patient was recently admitted and treated after sergio COVID-19 and pneumonia. Patient's creatinine on admission 2.19 bun 44. White blood cell but slightly elevated 11.8. COVID-19 negative. UA showing small amount of leukocyte Estrace urine culture ordered. At this time patient is resting comfortably in bed requesting pain medication for her chronic pain and headache. Current vitals temp 97.8, pulse rate 86, respiratory rate 18 blood pressure 124/73 oxygen saturation 96 on room air On 06/08/2021 patient was seen and examined on the medical floor she is alert and oriented 3 in no apparent distress there is no fever or chills no headache or dizziness no chest pain no shortness of breath no cough no nausea or vomiting no abdominal pain no diarrhea no blood in the stools no burning with urination no frequency or urgency no hematuria . Vital exam reveals a temperature of 98.1 pulse 80 respiration 18 blood pressure 150/77 pulse ox 99% on room air laboratory data reveals a white blood count of 7.7 hemoglobin 9.2 platelet count 458 BUN 23 creatinine 1.4 On 06/09/2021 patient is alert and oriented 3. Patient complaining of headache. Patient had temperature yesterday 101.2 patient remains on Rocephin for urinary tract infection. Pulmonary services are following. Patient is complaining of mild flank pain. Patient denies chest pain. Patient complaining of occasional nausea. Patient denies any urinary burning or frequency. On 06/10/2021 patient was seen and examined on the medical floor she is alert and oriented 3 in no apparent distress she states she is feeling somewhat better today, during the weekend patient had sudden severe elevation in her liver enzymes including AST ALT and alkaline phosphatase this was accompanied by elevated temperatures nausea and vomiting symptoms improved gradually, today liver enzymes are down. Most likely patient passed a stone through the common bile duct and had a biliary colic with elevated liver enzymes. At this time temperature had come down liver enzymes are coming down patient is maintained on IV antibiotics and is followed by infectious disease On 06/11/2021 patient was seen and examined on the medical floor she is alert and oriented 3 in no apparent distress there is no fever or chills no headache or dizziness no chest pain no shortness of breath no cough no nausea or vomiting no abdominal pain no diarrhea no blood in the stools no burning with urination no frequency or urgency and no hematuria On 06/12/2021 patient is alert and oriented 3. Patient reports that she feels much improved. AST 59, ALT 180 and alkaline phosphatase 257. Patient has remained afebrile. Patient remains on IV Maxipime. Infectious disease services are following. Patient denies chest pain or shortness of breath. Patient denies nausea vomiting or diarrhea. Patient denies any urinary burning or frequency. On 06/13/2021 patient was seen and examined on the medical floor she is alert and oriented 3 in no apparent distress there is no fever or chills no headache or dizziness no chest pain no shortness of breath no cough no nausea or vomiting no abdominal pain no diarrhea no blood in the stools no burning with urination no frequency or urgency and no hematuria. Potassium level was elevated yesterday at 5.3 potassium supplement discontinued IV fluid increased to 100 mL normal saline per hour patient is still maintained on IV antibiotics Maxipime and Cubicin and followed by infectious disease. Objective - Vital Signs Vital signs: Vital Signs Temp 97.8 F 06/13/21 07:39 Pulse 78 06/13/21 07:39 Resp 16 06/13/21 07:39 BP 123/73 06/13/21 07:39 Pulse Ox 99 06/13/21 07:39 Intake & Output 06/12/21 06/13/21 06/13/21 18:59 06:59 18:59 Intake Total 240 Balance 240 Weight 40.823 kg Intake: Oral 240 Other: Voiding Method Toilet Toilet # Voids 2 - Exam Head normocephalic and atraumatic Neck supple no JVD no goiter Lungs clear to auscultation bilaterally no wheezing or crackles Heart regular rate and rhythm S1-S2, no rub or gallop Abdomen is soft nontender nondistended positive bowel sounds no hepatosplenomegaly Extremities no edema Neuro alert and orientated to 3 - Labs CBC & Chem 7: 06/12/21 07:22 06/13/21 05:47 Labs: Abnormal Lab Results - Last 24 Hours (Table) 06/12/21 06/12/21 Range/Units 07:22 07:22 WBC 10.53 H (4.50-10.00) X 10*3/uL RBC 3.22 L (4.10-5.20) X 10*6/uL Hgb 8.2 L (12.0-15.0) g/dL Hct 27.8 L (37.2-46.3) % MCH 25.5 L (27.0-32.0) pg MCHC 29.5 L (32.0-37.0) g/dL RDW 18.7 H (11.5-14.5) % Immature Gran # 0.11 H (0.00-0.04) X 10*3/uL Eosinophils # 0.50 H (0.04-0.35) X 10*3/uL Sodium 134 L (137-145) mmol/L Potassium 5.3 H (3.5-5.1) mmol/L BUN 39 H (7-17) mg/dL Creatinine 1.28 H (0.52-1.04) mg/dL Glucose 124 H (74-99) mg/dL AST 59 H (14-36) U/L ALT 188 H (4-34) U/L Alkaline Phosphatase 257 H (38-126) U/L Total Protein 6.2 L (6.3-8.2) g/dL Albumin 3.0 L (3.5-5.0) g/dL Microbiology - Last 24 Hours (Table) 06/09/21 17:12 Blood Culture - Preliminary Blood No Growth after 72 hours 06/09/21 17:34 Blood Culture Gram Stain - Final Blood Blood Culture - Final Staphylococcus epidermidis 06/11/21 11:02 Blood Culture - Preliminary Blood No Growth after 24 hours 06/11/21 11:04 Blood Culture Gram Stain - Preliminary Blood 06/11/21 11:04 Blood Culture - Final Blood Assessment and Plan Assessment: 1. Generalized weakness and dehydration 2. Acute kidney injury. Improving 3. Urinary tract infection. Patient started on Rocephin urine culture ordered 4. History of recurrent aspiration pneumonia maintained on TPN 5. History of hypothyroidism. TSH elevated at 13.9 will increase Synthroid dose 8. History of immunoglobulin disorder 9. History of chronic pain with history of laminectomy 10. History of degenerative stress arthritis 11. History of pancreatitis 12. History of bowel obstruction 13. History of severe protein calorie malnutrition 14. History of COVID-19 infection and pneumonia 15. Severe and sudden elevation in liver enzymes yesterday including AST ALT and alkaline phosphatase, today liver enzymes are improving this could be related to a common bile duct stone will continue to monitor 16. Sepsis as evidenced by leukocytosis with elevated white blood count to 17.39 fever with temperature up to 101.2 and tachycardia DVT prophylaxis Lovenox. GI prophylaxis Protonix Home meds resumed Continue gentle hydration IV antibiotic for urinary tract infection Urine culture ordered Repeat labs ordered Patient will require home TPN
[2021-06-13] MEDS: MIRTAZAPINE 45 MG TABLET PO SCH (20:19)
--- NOTE | 2021-06-13 23:22 | P.PN ---
Subjective Progress Note Date: 06/13/21 Principal diagnosis: Sepsis Patient is a 76-year-old female with multiple comorbidities admitted to the hospital with weakness patient also have an episode of sepsis with fever and elevated white count and did have a jump in the liver enzymes with a question of possible possible stones and did have a positive UA with Enterobacter. On today's evaluation that is 06/13/2021, the patient remains to be afebrile, the patient denies chest pain shortness of breath or cough no nausea vomiting no abdominal pain or diarrhea Objective - Vital Signs Vital signs: Vital Signs Temp 98.6 F 06/13/21 19:06 Pulse 96 06/13/21 19:06 Resp 18 06/13/21 19:06 BP 133/65 06/13/21 19:06 Pulse Ox 97 06/13/21 20:15 Intake & Output 06/13/21 06/13/21 06/14/21 06:59 18:59 06:59 Intake Total 716 Balance 716 Intake: Oral 716 Other: Voiding Method Toilet Toilet Toilet # Voids 2 3 - Exam GENERAL DESCRIPTION: An elderly female lying in bed in no distress RESPIRATORY SYSTEM: Unlabored breathing , decreased breath sounds at bases HEART: S1 S2 regular rate and rhythm , ABDOMEN: Soft , no tenderness EXTREMITIES: No edema feet - Labs CBC & Chem 7: 06/12/21 07:22 06/13/21 05:47 Labs: Abnormal Lab Results - Last 24 Hours (Table) 06/13/21 Range/Units 05:47 Sodium 136 L (137-145) mmol/L BUN 45 H (7-17) mg/dL Creatinine 1.42 H (0.52-1.04) mg/dL Glucose 120 H (74-99) mg/dL Magnesium 2.4 H (1.6-2.3) mg/dL AST 46 H (14-36) U/L ALT 149 H (4-34) U/L Alkaline Phosphatase 264 H (38-126) U/L Albumin 3.1 L (3.5-5.0) g/dL Microbiology - Last 24 Hours (Table) 06/09/21 17:12 Blood Culture - Preliminary Blood No Growth after 96 hours 06/13/21 14:00 Catheter Tip Culture - Preliminary Picc Line 06/11/21 11:04 Blood Culture Gram Stain - Preliminary Blood Blood Culture - Preliminary Coagulase Negative Staph Gram Neg Bacilli 06/11/21 11:02 Blood Culture - Preliminary Blood No Growth after 48 hours Assessment and Plan (1) Sepsis Current Visit: Yes Status: Acute Code(s): A41.9 - SEPSIS, UNSPECIFIED ORGANISM SNOMED Code(s): 36655440 Plan: 1-Patient presented to hospital with weakness in this patient now with evidence of sepsis with a fever elevated white count source could be urinary as the patient had mildly positive UA and culture for possible cholangitis with elevated liver enzymes versus a PICC line infection. 2blood cultures are now growing staph epi as well as gram-negative possible CRE Enterobacter, PICC line will be discontinued tip sent for culture and blood cultures will be repeated new PICC line and replace only have evidence of patient blood cultures are negative at 72 hours antibiotics adjusted to meropenem continue with the daptomycin Time with Patient: Less than 30
[2021-06-13] MEDS: MEROPENEM 1 GM in SODIUM CHLORIDE 0.9% 100 ML IVPB SCH (23:39)
[2021-06-14] MEDS: BUTALB/APAP/CAFF 50-325-40MG TAB PO PRN ×2 (00:47→13:41)
[2021-06-14] MEDS: ALPRAZolam 0.25 MG TAB PO PRN ×2 (02:56→21:10)
[2021-06-14] MEDS: LEVOTHYROXINE 100 MCG TAB PO SCH (05:44)
[2021-06-14] MEDS: HYDROmorphone 1 MG/ML 1 ML SYRINGE IVP PRN ×3 (05:44→17:39)
[2021-06-14 07:18] LABS: Ionized Calcium 5.1 mg/dL (4.5-5.3)
[2021-06-14 07:27] LABS: ALT 111 U/L (4-34); AST 40 U/L (14-36); African American GFR (CKD) 35 (>60 ml/min/1.73 sqM); Albumin 3.2 g/dL (3.5-5.0); Alkaline Phosphatase 273 U/L (38-126); Anion Gap 7 mmol/L; Blood Urea Nitrogen 44 mg/dL (7-17); Calcium 9.1 mg/dL (8.4-10.2); Carbon Dioxide 20 mmol/L (22-30); Chloride 107 mmol/L (98-107); Globulin 3.3 g/dL; Glucose 86 mg/dL (74-99); Magnesium 2.2 mg/dL (1.6-2.3); Non-African American GFR(CKD) 30 (>60 ml/min/1.73 sqM); Phosphorus 3.9 mg/dL (2.5-4.5); Sodium 134 mmol/L (137-145); Total Bilirubin 0.3 mg/dL (0.2-1.3); Total Protein 6.5 g/dL (6.3-8.2)
[2021-06-14] MEDS: MEROPENEM 1 GM in SODIUM CHLORIDE 0.9% 100 ML IVPB SCH ×2 (07:49→16:13)
[2021-06-14] MEDS: SYMBICORT 160-4.5 MCG INHALER INHALATION SCH ×2 (08:15→20:51)
[2021-06-14] MEDS: oxyCODONE-APAP 7.5-325MG 1 EACH TAB PO SCH ×2 (09:39→21:10)
[2021-06-14 09:43] LABS: Basophils # (A) 0.09 X 10*3/uL (0.00-0.10); Eosinophils # (A) 0.45 X 10*3/uL (0.04-0.35); Eosinophils % (A) 4.9 %; HCT 26.7 % (37.2-46.3); HGB 7.9 g/dL (12.0-15.0); Immature Grans, Automated 1.1 %; Lymphocytes # (A) 2.06 X 10*3/uL (0.90-5.00); Lymphocytes % (A) 22.5 %; MCH 25.1 pg (27.0-32.0); MCHC 29.6 g/dL (32.0-37.0); MCV 84.8 fL (80.0-97.0); Mean Platelet Volume 10.2 fL (9.5-12.2); Monocytes # (A) 0.82 X 10*3/uL (0.20-1.00); NRBC Per 100 WBC 0 /100 WBCS (0.0-0.0); Neutrophils # (A) 5.63 X 10*3/uL (1.80-7.70); Neutrophils % (A) 61.5 %; Platelet Count 385 X 10*3/uL (140-440); RBC 3.15 X 10*6/uL (4.10-5.20); RDW 18.3 % (11.5-14.5); WBC 9.15 X 10*3/uL (4.50-10.00)
--- NOTE | 2021-06-14 10:57 | P.PN ---
Subjective Progress Note Date: 06/14/21 This is a 76-year-old female well-known to our services. Patient presented with general complaints of weakness and nausea. Patient has a past medical history of chronic TPN use due to multiple stomach surgeries managed 80 round, asthma, COPD, thyroid disorder, chronic pain, anxiety depression and panic disorder. Patient reports she has been not feeling well for the past few days denies fever. Reports some nausea. Patient also reports headache which is chronic for her. KUB x-ray completed showing nonspecific bowel gas pattern without radiographic evidence for acute process. Chest x-ray was completed showing left mid lung disease which are similar to immediate prior to visualize dating back 07/07/2020 right mid and upper lobe airspace [place] similar to prior dating superimposed pneumonia is not entirely excluded. Patient was recently admitted and treated after sergio COVID-19 and pneumonia. Patient's creatinine on admission 2.19 bun 44. White blood cell but slightly elevated 11.8. COVID-19 negative. UA showing small amount of leukocyte Estrace urine culture ordered. At this time patient is resting comfortably in bed requesting pain medication for her chronic pain and headache. Current vitals temp 97.8, pulse rate 86, respiratory rate 18 blood pressure 124/73 oxygen saturation 96 on room air On 06/08/2021 patient was seen and examined on the medical floor she is alert and oriented 3 in no apparent distress there is no fever or chills no headache or dizziness no chest pain no shortness of breath no cough no nausea or vomiting no abdominal pain no diarrhea no blood in the stools no burning with urination no frequency or urgency no hematuria . Vital exam reveals a temperature of 98.1 pulse 80 respiration 18 blood pressure 150/77 pulse ox 99% on room air laboratory data reveals a white blood count of 7.7 hemoglobin 9.2 platelet count 458 BUN 23 creatinine 1.4 On 06/09/2021 patient is alert and oriented 3. Patient complaining of headache. Patient had temperature yesterday 101.2 patient remains on Rocephin for urinary tract infection. Pulmonary services are following. Patient is complaining of mild flank pain. Patient denies chest pain. Patient complaining of occasional nausea. Patient denies any urinary burning or frequency. On 06/10/2021 patient was seen and examined on the medical floor she is alert and oriented 3 in no apparent distress she states she is feeling somewhat better today, during the weekend patient had sudden severe elevation in her liver enzymes including AST ALT and alkaline phosphatase this was accompanied by elevated temperatures nausea and vomiting symptoms improved gradually, today liver enzymes are down. Most likely patient passed a stone through the common bile duct and had a biliary colic with elevated liver enzymes. At this time temperature had come down liver enzymes are coming down patient is maintained on IV antibiotics and is followed by infectious disease On 06/11/2021 patient was seen and examined on the medical floor she is alert and oriented 3 in no apparent distress there is no fever or chills no headache or dizziness no chest pain no shortness of breath no cough no nausea or vomiting no abdominal pain no diarrhea no blood in the stools no burning with urination no frequency or urgency and no hematuria On 06/12/2021 patient is alert and oriented 3. Patient reports that she feels much improved. AST 59, ALT 180 and alkaline phosphatase 257. Patient has remained afebrile. Patient remains on IV Maxipime. Infectious disease services are following. Patient denies chest pain or shortness of breath. Patient denies nausea vomiting or diarrhea. Patient denies any urinary burning or frequency. On 06/13/2021 patient was seen and examined on the medical floor she is alert and oriented 3 in no apparent distress there is no fever or chills no headache or dizziness no chest pain no shortness of breath no cough no nausea or vomiting no abdominal pain no diarrhea no blood in the stools no burning with urination no frequency or urgency and no hematuria. Potassium level was elevated yesterday at 5.3 potassium supplement discontinued IV fluid increased to 100 mL normal saline per hour patient is still maintained on IV antibiotics Maxipime and Cubicin and followed by infectious disease. On 06/14/2021 patient is alert and oriented 3. Potassium 4.0. patient patient remains on IV antibiotics. White blood cell 9.15. PICC line has been removed. Current temp 97.8, heart rate 84, respiratory rate 16, blood pressure 117/62 patient satting 98% on room air. Per ID patient will likely need PICC line placement once clearance of bacteremia. Objective - Vital Signs Vital signs: Vital Signs Temp 97.8 F 06/14/21 08:04 Pulse 84 06/14/21 08:04 Resp 16 06/14/21 09:52 BP 117/62 06/14/21 08:04 Pulse Ox 98 02/25/22 08:04 Intake & Output 06/13/21 06/14/21 06/14/21 18:59 06:59 18:59 Intake Total 716 598 Balance 716 598 Intake: Oral 716 598 Other: Voiding Method Toilet Toilet Toilet # Voids 3 1 - Exam Head normocephalic and atraumatic Neck supple no JVD no goiter Lungs clear to auscultation bilaterally no wheezing or crackles Heart regular rate and rhythm S1-S2, no rub or gallop Abdomen is soft nontender nondistended positive bowel sounds no hepatosplenomegaly Extremities no edema Neuro alert and orientated to 3 - Labs CBC & Chem 7: 06/14/21 06:37 06/14/21 06:37 Labs: Abnormal Lab Results - Last 24 Hours (Table) 06/14/21 06/14/21 06/14/21 Range/Units 06:37 06:37 06:37 RBC 3.15 L (4.10-5.20) X 10*6/uL Hgb 7.9 L (12.0-15.0) g/dL Hct 26.7 L (37.2-46.3) % MCH 25.1 L (27.0-32.0) pg MCHC 29.6 L (32.0-37.0) g/dL RDW 18.3 H (11.5-14.5) % Immature Gran # 0.10 H (0.00-0.04) X 10*3/uL Eosinophils # 0.45 H (0.04-0.35) X 10*3/uL Sodium 134 L (137-145) mmol/L Carbon Dioxide 20 L (22-30) mmol/L BUN 44 H (7-17) mg/dL Creatinine 1.67 H (0.52-1.04) mg/dL AST 40 H (14-36) U/L ALT 111 H (4-34) U/L Alkaline Phosphatase 273 H (38-126) U/L Albumin 3.2 L (3.5-5.0) g/dL Triglycerides 225.00 H (0.00-149.00) mg/dL Microbiology - Last 24 Hours (Table) 06/13/21 06:00 Blood Culture - Preliminary Blood No Growth after 24 hours 06/09/21 17:12 Blood Culture - Preliminary Blood No Growth after 96 hours 06/13/21 14:00 Catheter Tip Culture - Preliminary Picc Line 06/11/21 11:04 Blood Culture Gram Stain - Preliminary Blood Blood Culture - Preliminary Coagulase Negative Staph Gram Neg Bacilli 06/11/21 11:02 Blood Culture - Preliminary Blood No Growth after 48 hours Assessment and Plan Assessment: 1. Generalized weakness and dehydration 2. Acute kidney injury. Improving 3. Urinary tract infection. Patient started on Rocephin urine culture ordered 4. History of recurrent aspiration pneumonia maintained on TPN 5. History of hypothyroidism. TSH elevated at 13.9 will increase Synthroid dose 8. History of immunoglobulin disorder 9. History of chronic pain with history of laminectomy 10. History of degenerative stress arthritis 11. History of pancreatitis 12. History of bowel obstruction 13. History of severe protein calorie malnutrition 14. History of COVID-19 infection and pneumonia 15. Severe and sudden elevation in liver enzymes yesterday including AST ALT and alkaline phosphatase, today liver enzymes are improving this could be related to a common bile duct stone will continue to monitor 16. Sepsis as evidenced positive blood culture DVT prophylaxis Lovenox. GI prophylaxis Protonix Infectious disease service is following PICC line removed Continue IV antibiotics Patient will require home TPN
[2021-06-14] MEDS: buPROPion XL 150 MG TAB.ER.24H PO SCH (10:58)
[2021-06-14] MEDS: buPROPion XL 300 MG TAB.ER.24H PO SCH (10:58)
[2021-06-14] MEDS: ASPIRIN 81 MG PO SCH (10:58)
[2021-06-14] MEDS: PANTOPRAZOLE 40 MG TABLET PO SCH (10:59)
[2021-06-14] MEDS: hydrOXYzine pamoate 25 MG CAP PO SCH ×3 (10:59→21:09)
[2021-06-14] MEDS: FUROSEMIDE 20 MG TAB PO SCH (11:04)
[2021-06-14] MEDS: busPIRone HCl 10 MG TAB PO SCH ×2 (11:05→21:09)
[2021-06-14] MEDS: LORATADINE 10 MG TAB PO SCH (11:05)
[2021-06-14] MEDS: THIAMINE 100 MG TAB PO SCH (11:05)
[2021-06-14] MEDS: ENOXAPARIN 30 MG/0.3 ML SYRINGE SQ SCH (11:06)
[2021-06-14] MEDS: ONDANSETRON 4 MG/2 ML VIAL IVP PRN ×2 (11:46→19:58)
[2021-06-14] MEDS: FERROUS SULFATE 325 MG TAB PO SCH (13:45)
[2021-06-14] MEDS: MIRTAZAPINE 45 MG TABLET PO SCH (21:09)
--- NOTE | 2021-06-14 23:18 | P.PN ---
Subjective Progress Note Date: 06/14/21 Principal diagnosis: Sepsis Patient is a 76-year-old female with multiple comorbidities admitted to the hospital with weakness patient also have an episode of sepsis with fever and elevated white count and did have a jump in the liver enzymes with a question of possible possible stones and did have a positive UA with Enterobacter. Patient blood culture positive for staph epi and gram-negative and the patient PICC line was discontinued as of 06/13/2021 On today's evaluation that is 06/14/2021, the patient denies any fever or any chills, the patient denies chest pain shortness of breath or cough , the patient denies nausea vomiting no abdominal pain or diarrhea Objective - Vital Signs Vital signs: Vital Signs Temp 98.3 F 06/14/21 14:00 Pulse 93 06/14/21 14:00 Resp 20 06/14/21 14:00 BP 109/64 06/14/21 14:00 Pulse Ox 99 06/14/21 14:00 Intake & Output 06/13/21 06/14/21 06/14/21 18:59 06:59 18:59 Intake Total 716 838 Balance 716 838 Weight 40.823 kg Intake: Oral 716 838 Other: Voiding Method Toilet Toilet Toilet # Voids 3 1 - Exam GENERAL DESCRIPTION: An elderly female lying in bed in no distress RESPIRATORY SYSTEM: Unlabored breathing , decreased breath sounds at bases HEART: S1 S2 regular rate and rhythm , ABDOMEN: Soft , no tenderness EXTREMITIES: No edema feet - Labs CBC & Chem 7: 06/14/21 06:37 06/14/21 06:37 Labs: Abnormal Lab Results - Last 24 Hours (Table) 06/14/21 06/14/21 06/14/21 Range/Units 06:37 06:37 06:37 RBC 3.15 L (4.10-5.20) X 10*6/uL Hgb 7.9 L (12.0-15.0) g/dL Hct 26.7 L (37.2-46.3) % MCH 25.1 L (27.0-32.0) pg MCHC 29.6 L (32.0-37.0) g/dL RDW 18.3 H (11.5-14.5) % Immature Gran # 0.10 H (0.00-0.04) X 10*3/uL Eosinophils # 0.45 H (0.04-0.35) X 10*3/uL Sodium 134 L (137-145) mmol/L Carbon Dioxide 20 L (22-30) mmol/L BUN 44 H (7-17) mg/dL Creatinine 1.67 H (0.52-1.04) mg/dL AST 40 H (14-36) U/L ALT 111 H (4-34) U/L Alkaline Phosphatase 273 H (38-126) U/L Albumin 3.2 L (3.5-5.0) g/dL Triglycerides 225.00 H (0.00-149.00) mg/dL Microbiology - Last 24 Hours (Table) 06/11/21 11:04 Blood Culture Gram Stain - Final Blood Blood Culture - Preliminary Coagulase Negative Staph Pseudomonas fluorescens/putida 06/11/21 11:02 Blood Culture - Preliminary Blood No Growth after 72 hours 06/13/21 14:00 Catheter Tip Culture - Preliminary Picc Line 06/13/21 06:00 Blood Culture - Preliminary Blood No Growth after 24 hours 06/09/21 17:12 Blood Culture - Preliminary Blood No Growth after 96 hours Assessment and Plan (1) Sepsis Current Visit: Yes Status: Acute Code(s): A41.9 - SEPSIS, UNSPECIFIED ORGANISM SNOMED Code(s): 83184282 Plan: 1-Patient presented to hospital with weakness in this patient now with evidence of sepsis with a fever elevated white count source could be urinary as the patient had mildly positive UA and concern for possible cholangitis with elevated liver enzymes versus a PICC line infection. 2blood cultures are now growing staph epi as well as gram-negative which has been finalized with Pseudomonas that is resistant to meropenem but sensitive to Fortaz, patient to continue with daptomycin however discontinue meropenem and start patient cefepime blood culture obtained yesterday has been negative so far and that he needs to be negative by Thursday she'll be able to get a PICC line, this was discussed with the admitting physician Time with Patient: Less than 30
[2021-06-15] MEDS: HYDROmorphone 1 MG/ML 1 ML SYRINGE IVP PRN ×5 (00:11→23:01)
[2021-06-15] MEDS: CEFEPIME 2 GM in SODIUM CHLORIDE 0.9% 100 ML IVPB SCH ×2 (00:24→08:05)
[2021-06-15] MEDS: BUTALB/APAP/CAFF 50-325-40MG TAB PO PRN ×2 (01:39→13:51)
[2021-06-15] MEDS: LEVOTHYROXINE 100 MCG TAB PO SCH (05:33)
[2021-06-15 07:03] LABS: ALT 122 U/L (4-34); AST 64 U/L (14-36); African American GFR (CKD) 36 (>60 ml/min/1.73 sqM); Albumin 3.4 g/dL (3.5-5.0); Alkaline Phosphatase 310 U/L (38-126); Anion Gap 7 mmol/L; Blood Urea Nitrogen 45 mg/dL (7-17); Calcium 9.1 mg/dL (8.4-10.2); Carbon Dioxide 26 mmol/L (22-30); Chloride 104 mmol/L (98-107); Globulin 3.3 g/dL; Glucose 84 mg/dL (74-99); Magnesium 2.3 mg/dL (1.6-2.3); Non-African American GFR(CKD) 31 (>60 ml/min/1.73 sqM); Phosphorus 4.9 mg/dL (2.5-4.5); Potassium 5.6 mmol/L (3.5-5.1); Sodium 137 mmol/L (137-145); Total Bilirubin 0.4 mg/dL (0.2-1.3); Total Protein 6.7 g/dL (6.3-8.2)
[2021-06-15] MEDS: LORATADINE 10 MG TAB PO SCH (07:53)
[2021-06-15] MEDS: ASPIRIN 81 MG PO SCH (07:53)
[2021-06-15] MEDS: PANTOPRAZOLE 40 MG TABLET PO SCH (07:53)
[2021-06-15] MEDS: THIAMINE 100 MG TAB PO SCH (07:53)
[2021-06-15] MEDS: FUROSEMIDE 20 MG TAB PO SCH (07:53)
[2021-06-15] MEDS: hydrOXYzine pamoate 25 MG CAP PO SCH ×3 (07:55→20:54)
[2021-06-15] MEDS: busPIRone HCl 10 MG TAB PO SCH ×2 (07:56→20:55)
[2021-06-15] MEDS: ENOXAPARIN 30 MG/0.3 ML SYRINGE SQ SCH (07:57)
[2021-06-15] MEDS: buPROPion XL 150 MG TAB.ER.24H PO SCH (07:58)
[2021-06-15] MEDS: buPROPion XL 300 MG TAB.ER.24H PO SCH (07:59)
[2021-06-15] MEDS: ALPRAZolam 0.25 MG TAB PO PRN ×2 (08:04→19:00)
[2021-06-15] MEDS: ONDANSETRON 4 MG/2 ML VIAL IVP PRN ×2 (08:08→16:19)
[2021-06-15] MEDS: SYMBICORT 160-4.5 MCG INHALER INHALATION SCH ×2 (08:27→20:39)
[2021-06-15] MEDS: oxyCODONE-APAP 7.5-325MG 1 EACH TAB PO SCH ×2 (08:58→20:55)
[2021-06-15 08:59] LABS: Basophils # (A) 0.08 X 10*3/uL (0.00-0.10); Basophils % (A) 0.9 %; Eosinophils # (A) 0.53 X 10*3/uL (0.04-0.35); HCT 27.3 % (37.2-46.3); Lymphocytes # (A) 1.77 X 10*3/uL (0.90-5.00); Lymphocytes % (A) 19.9 %; MCH 25.2 pg (27.0-32.0); MCHC 29.3 g/dL (32.0-37.0); MCV 85.8 fL (80.0-97.0); Mean Platelet Volume 10.5 fL (9.5-12.2); Monocytes # (A) 0.83 X 10*3/uL (0.20-1.00); Monocytes % (A) 9.3 %; NRBC Per 100 WBC 0 /100 WBCS (0.0-0.0); Neutrophils % (A) 62.9 %; Platelet Count 442 X 10*3/uL (140-440); RBC 3.18 X 10*6/uL (4.10-5.20); RDW 18.4 % (11.5-14.5)
[2021-06-15] MEDS: FERROUS SULFATE 325 MG TAB PO SCH (11:31)
--- NOTE | 2021-06-15 12:08 | P.PN ---
Subjective Progress Note Date: 06/15/21 This is a 76-year-old female well-known to our services. Patient presented with general complaints of weakness and nausea. Patient has a past medical history of chronic TPN use due to multiple stomach surgeries managed 80 round, asthma, COPD, thyroid disorder, chronic pain, anxiety depression and panic disorder. Patient reports she has been not feeling well for the past few days denies fever. Reports some nausea. Patient also reports headache which is chronic for her. KUB x-ray completed showing nonspecific bowel gas pattern without radiographic evidence for acute process. Chest x-ray was completed showing left mid lung disease which are similar to immediate prior to visualize dating back 07/07/2020 right mid and upper lobe airspace [place] similar to prior dating superimposed pneumonia is not entirely excluded. Patient was recently admitted and treated after sergio COVID-19 and pneumonia. Patient's creatinine on admission 2.19 bun 44. White blood cell but slightly elevated 11.8. COVID-19 negative. UA showing small amount of leukocyte Estrace urine culture ordered. At this time patient is resting comfortably in bed requesting pain medication for her chronic pain and headache. Current vitals temp 97.8, pulse rate 86, respiratory rate 18 blood pressure 124/73 oxygen saturation 96 on room air On 06/08/2021 patient was seen and examined on the medical floor she is alert and oriented 3 in no apparent distress there is no fever or chills no headache or dizziness no chest pain no shortness of breath no cough no nausea or vomiting no abdominal pain no diarrhea no blood in the stools no burning with urination no frequency or urgency no hematuria . Vital exam reveals a temperature of 98.1 pulse 80 respiration 18 blood pressure 150/77 pulse ox 99% on room air laboratory data reveals a white blood count of 7.7 hemoglobin 9.2 platelet count 458 BUN 23 creatinine 1.4 On 06/09/2021 patient is alert and oriented 3. Patient complaining of headache. Patient had temperature yesterday 101.2 patient remains on Rocephin for urinary tract infection. Pulmonary services are following. Patient is complaining of mild flank pain. Patient denies chest pain. Patient complaining of occasional nausea. Patient denies any urinary burning or frequency. On 06/10/2021 patient was seen and examined on the medical floor she is alert and oriented 3 in no apparent distress she states she is feeling somewhat better today, during the weekend patient had sudden severe elevation in her liver enzymes including AST ALT and alkaline phosphatase this was accompanied by elevated temperatures nausea and vomiting symptoms improved gradually, today liver enzymes are down. Most likely patient passed a stone through the common bile duct and had a biliary colic with elevated liver enzymes. At this time temperature had come down liver enzymes are coming down patient is maintained on IV antibiotics and is followed by infectious disease On 06/11/2021 patient was seen and examined on the medical floor she is alert and oriented 3 in no apparent distress there is no fever or chills no headache or dizziness no chest pain no shortness of breath no cough no nausea or vomiting no abdominal pain no diarrhea no blood in the stools no burning with urination no frequency or urgency and no hematuria On 06/12/2021 patient is alert and oriented 3. Patient reports that she feels much improved. AST 59, ALT 180 and alkaline phosphatase 257. Patient has remained afebrile. Patient remains on IV Maxipime. Infectious disease services are following. Patient denies chest pain or shortness of breath. Patient denies nausea vomiting or diarrhea. Patient denies any urinary burning or frequency. On 06/13/2021 patient was seen and examined on the medical floor she is alert and oriented 3 in no apparent distress there is no fever or chills no headache or dizziness no chest pain no shortness of breath no cough no nausea or vomiting no abdominal pain no diarrhea no blood in the stools no burning with urination no frequency or urgency and no hematuria. Potassium level was elevated yesterday at 5.3 potassium supplement discontinued IV fluid increased to 100 mL normal saline per hour patient is still maintained on IV antibiotics Maxipime and Cubicin and followed by infectious disease. On 06/14/2021 patient is alert and oriented 3. Potassium 4.0. patient patient remains on IV antibiotics. White blood cell 9.15. PICC line has been removed. Current temp 97.8, heart rate 84, respiratory rate 16, blood pressure 117/62 patient satting 98% on room air. Per ID patient will likely need PICC line placement once clearance of bacteremia. On 06/15/2021 patient is alert and oriented 3. Potassium increasing to 5.6 creatinine 1.63 and bun 45 will resume normal saline fluid at 100. Patient remains on cefepime and azithromycin awaiting for blood cultures plans for pos sible PICC line placement on Thursday. Patient is complaining of generalized pain. Patient is maintained on IV Dilaudid when necessary plus home pain medication at this time. Patient denies chest pain. Patient denies nausea vomiting or diarrhea. Patient denies any urinary burning or frequency Objective - Vital Signs Vital signs: Vital Signs Temp 97.9 F 06/15/21 08:00 Pulse 91 06/15/21 08:13 Resp 18 06/15/21 08:00 BP 115/68 06/15/21 08:00 Pulse Ox 100 06/15/21 08:00 Intake & Output 06/14/21 06/15/21 06/15/21 18:59 06:59 18:59 Intake Total 838 Balance 838 Weight 40.823 kg Intake: Oral 838 Other: Voiding Method Toilet Toilet - Exam Head normocephalic and atraumatic Neck supple no JVD no goiter Lungs clear to auscultation bilaterally no wheezing or crackles Heart regular rate and rhythm S1-S2, no rub or gallop Abdomen is soft nontender nondistended positive bowel sounds no hepatosplenomegaly Extremities no edema Neuro alert and orientated to 3 - Labs CBC & Chem 7: 06/15/21 06:07 06/15/21 06:07 Labs: Abnormal Lab Results - Last 24 Hours (Table) 06/15/21 06/15/21 Range/Units 06:07 06:07 RBC 3.18 L (4.10-5.20) X 10*6/uL Hgb 8.0 L (12.0-15.0) g/dL Hct 27.3 L (37.2-46.3) % MCH 25.2 L (27.0-32.0) pg MCHC 29.3 L (32.0-37.0) g/dL RDW 18.4 H (11.5-14.5) % Plt Count 442 H (140-440) X 10*3/uL Immature Gran # 0.09 H (0.00-0.04) X 10*3/uL Eosinophils # 0.53 H (0.04-0.35) X 10*3/uL Potassium 5.6 H (3.5-5.1) mmol/L BUN 45 H (7-17) mg/dL Creatinine 1.63 H (0.52-1.04) mg/dL Phosphorus 4.9 H (2.5-4.5) mg/dL AST 64 H (14-36) U/L ALT 122 H (4-34) U/L Alkaline Phosphatase 310 H (38-126) U/L Albumin 3.4 L (3.5-5.0) g/dL Microbiology - Last 24 Hours (Table) 06/13/21 14:00 Catheter Tip Culture - Final Picc Line 06/13/21 06:00 Blood Culture - Preliminary Blood No Growth after 48 hours 06/14/21 06:37 Blood Culture - Preliminary Blood No Growth after 24 hours 06/09/21 17:12 Blood Culture - Preliminary Blood No Growth after 120 hours 06/13/21 14:31 Blood Culture - Preliminary Blood No Growth after 24 hours 06/11/21 11:04 Blood Culture Gram Stain - Final Blood Blood Culture - Preliminary Coagulase Negative Staph Pseudomonas fluorescens/putida 06/11/21 11:02 Blood Culture - Preliminary Blood No Growth after 72 hours Assessment and Plan Assessment: 1. Generalized weakness and dehydration 2. Acute kidney injury. Improving 3. Urinary tract infection. Patient started on Rocephin urine culture ordered 4. History of recurrent aspiration pneumonia maintained on TPN 5. History of hypothyroidism. TSH elevated at 13.9 will increase Synthroid dose 8. History of immunoglobulin disorder 9. History of chronic pain with history of laminectomy 10. History of degenerative stress arthritis 11. History of pancreatitis 12. History of bowel obstruction 13. History of severe protein calorie malnutrition 14. History of COVID-19 infection and pneumonia 15. Severe and sudden elevation in liver enzymes yesterday including AST ALT and alkaline phosphatase, today liver enzymes are improving this could be related to a common bile duct stone will continue to monitor 16. Sepsis as evidenced positive blood culture DVT prophylaxis Lovenox. GI prophylaxis Protonix Infectious disease service is following PICC line removed Continue IV antibiotics Patient will require home TPN
--- NOTE | 2021-06-15 16:31 | P.PN ---
Subjective Progress Note Date: 06/15/21 Principal diagnosis: Sepsis Patient is a 76-year-old female with multiple comorbidities admitted to the hospital with weakness patient also have an episode of sepsis with fever and elevated white count and did have a jump in the liver enzymes with a question of possible possible stones and did have a positive UA with Enterobacter. Patient blood culture positive for staph epi and gram-negative and the patient PICC line was discontinued as of 06/13/2021 On today's evaluation that is 06/15/2021, the patient remains to be afebrile, the patient denies chest pain shortness of breath or cough , the patient denies nausea vomiting has been complaining of some abdominal pain however decreased intensity and no diarrhea Objective - Vital Signs Vital signs: Vital Signs Temp 97.9 F 06/15/21 08:00 Pulse 91 06/15/21 08:13 Resp 18 06/15/21 08:00 BP 115/68 06/15/21 08:00 Pulse Ox 100 06/15/21 08:00 Intake & Output 06/14/21 06/15/21 06/15/21 18:59 06:59 18:59 Intake Total 838 Balance 838 Weight 40.823 kg Intake: Oral 838 Other: Voiding Method Toilet Toilet - Exam GENERAL DESCRIPTION: An elderly female lying in bed in no distress RESPIRATORY SYSTEM: Unlabored breathing , decreased breath sounds at bases HEART: S1 S2 regular rate and rhythm , ABDOMEN: Soft , no tenderness EXTREMITIES: No edema feet - Labs CBC & Chem 7: 06/15/21 06:07 06/15/21 06:07 Labs: Abnormal Lab Results - Last 24 Hours (Table) 06/15/21 06/15/21 Range/Units 06:07 06:07 RBC 3.18 L (4.10-5.20) X 10*6/uL Hgb 8.0 L (12.0-15.0) g/dL Hct 27.3 L (37.2-46.3) % MCH 25.2 L (27.0-32.0) pg MCHC 29.3 L (32.0-37.0) g/dL RDW 18.4 H (11.5-14.5) % Plt Count 442 H (140-440) X 10*3/uL Immature Gran # 0.09 H (0.00-0.04) X 10*3/uL Eosinophils # 0.53 H (0.04-0.35) X 10*3/uL Potassium 5.6 H (3.5-5.1) mmol/L BUN 45 H (7-17) mg/dL Creatinine 1.63 H (0.52-1.04) mg/dL Phosphorus 4.9 H (2.5-4.5) mg/dL AST 64 H (14-36) U/L ALT 122 H (4-34) U/L Alkaline Phosphatase 310 H (38-126) U/L Albumin 3.4 L (3.5-5.0) g/dL Microbiology - Last 24 Hours (Table) 06/11/21 11:02 Blood Culture - Preliminary Blood No Growth after 96 hours 06/13/21 14:00 Catheter Tip Culture - Final Picc Line 06/13/21 06:00 Blood Culture - Preliminary Blood No Growth after 48 hours 06/14/21 06:37 Blood Culture - Preliminary Blood No Growth after 24 hours 06/09/21 17:12 Blood Culture - Preliminary Blood No Growth after 120 hours 06/13/21 14:31 Blood Culture - Preliminary Blood No Growth after 24 hours 06/11/21 11:04 Blood Culture Gram Stain - Final Blood Blood Culture - Preliminary Coagulase Negative Staph Pseudomonas fluorescens/putida Assessment and Plan (1) Sepsis Current Visit: Yes Status: Acute Code(s): A41.9 - SEPSIS, UNSPECIFIED ORGANISM SNOMED Code(s): 80947086 Plan: 1-Patient presented to hospital with weakness in this patient now with evidence of sepsis with a fever elevated white count source could be urinary as the patient had mildly positive UA and concern for possible cholangitis with elevated liver enzymes versus a PICC line infection. 2blood cultures finalized as staph epi staph epi as well as gram-negative which has been finalized with Pseudomonas that is resistant to meropenem but sensitive to Fortaz, patient to continue with daptomycin and cefepime repeat blood culture have been negative so far if there remains to be negative she'll be able to get a PICC line on Thursday Time with Patient: Less than 30
[2021-06-15] MEDS: SODIUM CHLORIDE 0.9% 1,000 ML IV SCH (18:07)
[2021-06-15] MEDS: MIRTAZAPINE 45 MG TABLET PO SCH (20:55)
[2021-06-15] MEDS: CEFEPIME 1 GM in SODIUM CHLORIDE 0.9% 50 ML IVPB SCH (20:56)
[2021-06-16] MEDS: BUTALB/APAP/CAFF 50-325-40MG TAB PO PRN ×3 (01:46→22:09)
[2021-06-16] MEDS: ALPRAZolam 0.25 MG TAB PO PRN ×3 (01:46→14:58)
[2021-06-16] MEDS: SODIUM CHLORIDE 0.9% 1,000 ML IV SCH ×3 (01:48→17:01)
[2021-06-16] MEDS: HYDROmorphone 1 MG/ML 1 ML SYRINGE IVP PRN ×3 (04:58→16:58)
[2021-06-16] MEDS: LEVOTHYROXINE 100 MCG TAB PO SCH (04:59)
[2021-06-16 06:48] LABS: ALT 122 U/L (4-34); AST 94 U/L (14-36); African American GFR (CKD) 34 (>60 ml/min/1.73 sqM); Albumin 3.3 g/dL (3.5-5.0); Albumin/Globulin Ratio 1.1; Alkaline Phosphatase 286 U/L (38-126); Anion Gap 5 mmol/L; Blood Urea Nitrogen 43 mg/dL (7-17); Calcium 8.7 mg/dL (8.4-10.2); Carbon Dioxide 29 mmol/L (22-30); Chloride 103 mmol/L (98-107); Globulin 3.1 g/dL; Glucose 90 mg/dL (74-99); Magnesium 2.3 mg/dL (1.6-2.3); Non-African American GFR(CKD) 30 (>60 ml/min/1.73 sqM); Phosphorus 4.6 mg/dL (2.5-4.5); Potassium 4.8 mmol/L (3.5-5.1); Sodium 137 mmol/L (137-145); Total Bilirubin 0.4 mg/dL (0.2-1.3); Total Protein 6.4 g/dL (6.3-8.2)
[2021-06-16] MEDS: SYMBICORT 160-4.5 MCG INHALER INHALATION SCH ×2 (07:25→20:29)
[2021-06-16] MEDS: ONDANSETRON 4 MG/2 ML VIAL IVP PRN ×2 (08:26→16:35)
[2021-06-16] MEDS: FUROSEMIDE 20 MG TAB PO SCH (08:26)
[2021-06-16] MEDS: LORATADINE 10 MG TAB PO SCH (08:26)
[2021-06-16] MEDS: PANTOPRAZOLE 40 MG TABLET PO SCH (08:26)
[2021-06-16] MEDS: ASPIRIN 81 MG PO SCH (08:26)
[2021-06-16] MEDS: THIAMINE 100 MG TAB PO SCH (08:26)
[2021-06-16] MEDS: busPIRone HCl 10 MG TAB PO SCH ×2 (08:30→20:24)
[2021-06-16] MEDS: hydrOXYzine pamoate 25 MG CAP PO SCH ×3 (08:31→22:10)
[2021-06-16] MEDS: ENOXAPARIN 30 MG/0.3 ML SYRINGE SQ SCH (08:31)
[2021-06-16] MEDS: buPROPion XL 300 MG TAB.ER.24H PO SCH (08:32)
[2021-06-16] MEDS: buPROPion XL 150 MG TAB.ER.24H PO SCH (08:32)
[2021-06-16] MEDS: oxyCODONE-APAP 7.5-325MG 1 EACH TAB PO SCH ×2 (08:45→20:22)
[2021-06-16 09:05] LABS: Basophils # (A) 0.07 X 10*3/uL (0.00-0.10); Basophils % (A) 0.8 %; Eosinophils # (A) 0.69 X 10*3/uL (0.04-0.35); Eosinophils % (A) 7.7 %; HCT 26.1 % (37.2-46.3); HGB 7.7 g/dL (12.0-15.0); Immature Grans, Automated 0.8 %; Lymphocytes # (A) 2.23 X 10*3/uL (0.90-5.00); Lymphocytes % (A) 24.9 %; MCH 25.2 pg (27.0-32.0); MCHC 29.5 g/dL (32.0-37.0); MCV 85.6 fL (80.0-97.0); Mean Platelet Volume 9.8 fL (9.5-12.2); Monocytes # (A) 1.07 X 10*3/uL (0.20-1.00); Monocytes % (A) 11.9 %; NRBC Per 100 WBC 0 /100 WBCS (0.0-0.0); Neutrophils # (A) 4.83 X 10*3/uL (1.80-7.70); Neutrophils % (A) 53.9 %; Platelet Count 451 X 10*3/uL (140-440); RBC 3.05 X 10*6/uL (4.10-5.20); RDW 18.4 % (11.5-14.5); WBC 8.96 X 10*3/uL (4.50-10.00)
[2021-06-16] MEDS: CEFEPIME 1 GM in SODIUM CHLORIDE 0.9% 50 ML IVPB SCH ×2 (09:30→20:22)
[2021-06-16 09:58] LABS: Appearance,Urine Clear (Clear); Bilirubin,Urine Negative (Negative); Blood,Urine Negative (Negative); Color,Urine Light Yellow; Glucose,Urine (UA) Negative (Negative); Ketones,Urine Negative (Negative); Leukocyte Esterase,Urine Negative (Negative); Nitrite,Urine Negative (Negative); PH, Urine 6.5 (5.0-8.0); Protein,Urine 1+ (Negative); Squamous Epithelial Cell,Urine <1 /hpf (0-4); Urobilinogen,Urine <2.0 mg/dL (<2.0); WBC,Urine 1 /hpf (0-5)
--- NOTE | 2021-06-16 10:48 | P.PN ---
Subjective Progress Note Date: 06/16/21 This is a 76-year-old female well-known to our services. Patient presented with general complaints of weakness and nausea. Patient has a past medical history of chronic TPN use due to multiple stomach surgeries managed 80 round, asthma, COPD, thyroid disorder, chronic pain, anxiety depression and panic disorder. Patient reports she has been not feeling well for the past few days denies fever. Reports some nausea. Patient also reports headache which is chronic for her. KUB x-ray completed showing nonspecific bowel gas pattern without radiographic evidence for acute process. Chest x-ray was completed showing left mid lung disease which are similar to immediate prior to visualize dating back 07/07/2020 right mid and upper lobe airspace [place] similar to prior dating superimposed pneumonia is not entirely excluded. Patient was recently admitted and treated after sergio COVID-19 and pneumonia. Patient's creatinine on admission 2.19 bun 44. White blood cell but slightly elevated 11.8. COVID-19 negative. UA showing small amount of leukocyte Estrace urine culture ordered. At this time patient is resting comfortably in bed requesting pain medication for her chronic pain and headache. Current vitals temp 97.8, pulse rate 86, respiratory rate 18 blood pressure 124/73 oxygen saturation 96 on room air On 06/08/2021 patient was seen and examined on the medical floor she is alert and oriented 3 in no apparent distress there is no fever or chills no headache or dizziness no chest pain no shortness of breath no cough no nausea or vomiting no abdominal pain no diarrhea no blood in the stools no burning with urination no frequency or urgency no hematuria . Vital exam reveals a temperature of 98.1 pulse 80 respiration 18 blood pressure 150/77 pulse ox 99% on room air laboratory data reveals a white blood count of 7.7 hemoglobin 9.2 platelet count 458 BUN 23 creatinine 1.4 On 06/09/2021 patient is alert and oriented 3. Patient complaining of headache. Patient had temperature yesterday 101.2 patient remains on Rocephin for urinary tract infection. Pulmonary services are following. Patient is complaining of mild flank pain. Patient denies chest pain. Patient complaining of occasional nausea. Patient denies any urinary burning or frequency. On 06/10/2021 patient was seen and examined on the medical floor she is alert and oriented 3 in no apparent distress she states she is feeling somewhat better today, during the weekend patient had sudden severe elevation in her liver enzymes including AST ALT and alkaline phosphatase this was accompanied by elevated temperatures nausea and vomiting symptoms improved gradually, today liver enzymes are down. Most likely patient passed a stone through the common bile duct and had a biliary colic with elevated liver enzymes. At this time temperature had come down liver enzymes are coming down patient is maintained on IV antibiotics and is followed by infectious disease On 06/11/2021 patient was seen and examined on the medical floor she is alert and oriented 3 in no apparent distress there is no fever or chills no headache or dizziness no chest pain no shortness of breath no cough no nausea or vomiting no abdominal pain no diarrhea no blood in the stools no burning with urination no frequency or urgency and no hematuria On 06/12/2021 patient is alert and oriented 3. Patient reports that she feels much improved. AST 59, ALT 180 and alkaline phosphatase 257. Patient has remained afebrile. Patient remains on IV Maxipime. Infectious disease services are following. Patient denies chest pain or shortness of breath. Patient denies nausea vomiting or diarrhea. Patient denies any urinary burning or frequency. On 06/13/2021 patient was seen and examined on the medical floor she is alert and oriented 3 in no apparent distress there is no fever or chills no headache or dizziness no chest pain no shortness of breath no cough no nausea or vomiting no abdominal pain no diarrhea no blood in the stools no burning with urination no frequency or urgency and no hematuria. Potassium level was elevated yesterday at 5.3 potassium supplement discontinued IV fluid increased to 100 mL normal saline per hour patient is still maintained on IV antibiotics Maxipime and Cubicin and followed by infectious disease. On 06/14/2021 patient is alert and oriented 3. Potassium 4.0. patient patient remains on IV antibiotics. White blood cell 9.15. PICC line has been removed. Current temp 97.8, heart rate 84, respiratory rate 16, blood pressure 117/62 patient satting 98% on room air. Per ID patient will likely need PICC line placement once clearance of bacteremia. On 06/15/2021 patient is alert and oriented 3. Potassium increasing to 5.6 creatinine 1.63 and bun 45 will resume normal saline fluid at 100. Patient remains on cefepime and azithromycin awaiting for blood cultures plans for poss ible PICC line placement on Thursday. Patient is complaining of generalized pain. Patient is maintained on IV Dilaudid when necessary plus home pain medication at this time. Patient denies chest pain. Patient denies nausea vomiting or diarrhea. Patient denies any urinary burning or frequency. On 06/16/2021 patient was seen and examined on the medical floor she is alert and oriented 3 in no apparent distress there is no fever or chills no headache or dizziness no chest pain no shortness of breath no cough no nausea or vomiting pain no diarrhea and no urinary symptoms. At this time we are waiting for clearance from Dr. Gregorio infectious disease to replace the PICC line so patient can be restarted on TPN Objective - Vital Signs Vital signs: Vital Signs Temp 98.1 F 06/16/21 02:39 Pulse 73 06/16/21 02:39 Resp 17 06/16/21 02:39 BP 99/59 06/16/21 02:39 Pulse Ox 97 06/16/21 02:39 Intake & Output 06/15/21 06/16/21 06/16/21 18:59 06:59 18:59 Other: Voiding Method Toilet # Voids 2 - Exam Head normocephalic and atraumatic Neck supple no JVD no goiter Lungs clear to auscultation bilaterally no wheezing or crackles Heart regular rate and rhythm S1-S2, no rub or gallop Abdomen is soft nontender nondistended positive bowel sounds no hepatos plenomegaly Extremities no edema Neuro alert and orientated to 3 - Labs CBC & Chem 7: 06/16/21 05:59 06/16/21 05:59 Labs: Abnormal Lab Results - Last 24 Hours (Table) 06/15/21 06/16/21 Range/Units 06:07 05:59 RBC 3.18 L (4.10-5.20) X 10*6/uL Hgb 8.0 L (12.0-15.0) g/dL Hct 27.3 L (37.2-46.3) % MCH 25.2 L (27.0-32.0) pg MCHC 29.3 L (32.0-37.0) g/dL RDW 18.4 H (11.5-14.5) % Plt Count 442 H (140-440) X 10*3/uL Immature Gran # 0.09 H (0.00-0.04) X 10*3/uL Eosinophils # 0.53 H (0.04-0.35) X 10*3/uL BUN 43 H (7-17) mg/dL Creatinine 1.69 H (0.52-1.04) mg/dL Phosphorus 4.6 H (2.5-4.5) mg/dL AST 94 H (14-36) U/L ALT 122 H (4-34) U/L Alkaline Phosphatase 286 H (38-126) U/L Albumin 3.3 L (3.5-5.0) g/dL Microbiology - Last 24 Hours (Table) 06/09/21 17:12 Blood Culture - Final Blood No Growth after 144 hours 06/13/21 14:31 Blood Culture - Preliminary Blood No Growth after 48 hours 06/11/21 11:04 Blood Culture Gram Stain - Final Blood Blood Culture - Final Coagulase Negative Staph Pseudomonas fluorescens/putida 06/11/21 11:02 Blood Culture - Preliminary Blood No Growth after 96 hours 06/13/21 14:00 Catheter Tip Culture - Final Picc Line 06/13/21 06:00 Blood Culture - Preliminary Blood No Growth after 48 hours 06/14/21 06:37 Blood Culture - Preliminary Blood No Growth after 24 hours Assessment and Plan Assessment: 1. Generalized weakness and dehydration 2. Acute kidney injury. Improving 3. Urinary tract infection. Patient started on Rocephin urine culture ordered 4. History of recurrent aspiration pneumonia maintained on TPN 5. History of hypothyroidism. TSH elevated at 13.9 will increase Synthroid dose 8. History of immunoglobulin disorder 9. History of chronic pain with history of laminectomy 10. History of degenerative stress arthritis 11. History of pancreatitis 12. History of bowel obstruction 13. History of severe protein calorie malnutrition 14. History of COVID-19 infection and pneumonia 15. Severe and sudden elevation in liver enzymes yesterday including AST ALT and alkaline phosphatase, today liver enzymes are improving this could be related to a common bile duct stone will continue to monitor 16. Sepsis as evidenced positive blood culture DVT prophylaxis Lovenox. GI prophylaxis Protonix Infectious disease service is following PICC line removed Continue IV antibiotics Patient will require home TPN
[2021-06-16] MEDS: FERROUS SULFATE 325 MG TAB PO SCH (13:03)
[2021-06-16] MEDS: MIRTAZAPINE 45 MG TABLET PO SCH (20:24)
--- NOTE | 2021-06-16 22:53 | P.PN ---
Subjective Progress Note Date: 06/16/21 Principal diagnosis: Sepsis Patient is a 76-year-old female with multiple comorbidities admitted to the hospital with weakness patient also have an episode of sepsis with fever and elevated white count and did have a jump in the liver enzymes with a question of possible possible stones and did have a positive UA with Enterobacter. Patient blood culture positive for staph epi and gram-negative and the patient PICC line was discontinued as of 06/13/2021 On today's evaluation that is 06/16/2021, the patient continues to be afebrile, the patient denies chest pain shortness of breath or cough , the patient denies nausea vomiting, the patient has been complaining of some abdominal pain around upper abdominal area but denies any worsening and no diarrhea Objective - Vital Signs Vital signs: Vital Signs Temp 97.8 F 06/16/21 14:00 Pulse 86 06/16/21 14:00 Resp 18 06/16/21 14:00 BP 107/63 06/16/21 14:00 Pulse Ox 98 06/16/21 14:00 Intake & Output 06/16/21 06/16/21 06/17/21 06:59 18:59 06:59 Intake Total 444 Balance 444 Intake: Oral 444 Other: Voiding Method Toilet # Voids 2 - Exam GENERAL DESCRIPTION: An elderly female lying in bed in no distress RESPIRATORY SYSTEM: Unlabored breathing , decreased breath sounds at bases HEART: S1 S2 regular rate and rhythm , ABDOMEN: Soft , no tenderness EXTREMITIES: No edema feet - Labs CBC & Chem 7: 06/16/21 05:59 06/16/21 05:59 Labs: Abnormal Lab Results - Last 24 Hours (Table) 06/16/21 06/16/21 06/16/21 Range/Units 05:59 05:59 09:39 RBC 3.05 L (4.10-5.20) X 10*6/uL Hgb 7.7 L (12.0-15.0) g/dL Hct 26.1 L (37.2-46.3) % MCH 25.2 L (27.0-32.0) pg MCHC 29.5 L (32.0-37.0) g/dL RDW 18.4 H (11.5-14.5) % Plt Count 451 H (140-440) X 10*3/uL Immature Gran # 0.07 H (0.00-0.04) X 10*3/uL Monocytes # 1.07 H (0.20-1.00) X 10*3/uL Eosinophils # 0.69 H (0.04-0.35) X 10*3/uL BUN 43 H (7-17) mg/dL Creatinine 1.69 H (0.52-1.04) mg/dL Phosphorus 4.6 H (2.5-4.5) mg/dL AST 94 H (14-36) U/L ALT 122 H (4-34) U/L Alkaline Phosphatase 286 H (38-126) U/L Albumin 3.3 L (3.5-5.0) g/dL Urine Protein 1+ H (Negative) Microbiology - Last 24 Hours (Table) 06/13/21 14:31 Blood Culture - Preliminary Blood No Growth after 72 hours 06/11/21 11:02 Blood Culture - Preliminary Blood No Growth after 120 hours 06/13/21 06:00 Blood Culture - Preliminary Blood No Growth after 72 hours 06/14/21 06:37 Blood Culture - Preliminary Blood No Growth after 48 hours 06/15/21 06:07 Blood Culture - Preliminary Blood No Growth after 24 hours 06/09/21 17:12 Blood Culture - Final Blood No Growth after 144 hours Assessment and Plan (1) Sepsis Current Visit: Yes Status: Acute Code(s): A41.9 - SEPSIS, UNSPECIFIED ORGANISM SNOMED Code(s): 60241671 Plan: 1-Patient presented to hospital with weakness in this patient now with evidence of sepsis with a fever elevated white count source could be urinary as the patient had mildly positive UA and concern for possible cholangitis with elevated liver enzymes and also concern for a PICC line infection. Which has been discontinued 2blood cultures finalized as staph epi staph epi as well as gram-negative which has been finalized with Pseudomonas that is resistant to meropenem but sensitive to Fortaz, patient to continue with daptomycin and cefepime repeat blood culture have been negative so far, the patient be able to get a PICC line tomorrow morning Time with Patient: Less than 30
[2021-06-17] MEDS: ALPRAZolam 0.25 MG TAB PO PRN ×3 (02:33→20:25)
[2021-06-17] MEDS: HYDROmorphone 1 MG/ML 1 ML SYRINGE IVP PRN ×4 (05:24→23:35)
[2021-06-17] MEDS: ONDANSETRON 4 MG/2 ML VIAL IVP PRN ×2 (05:24→14:44)
[2021-06-17] MEDS: LEVOTHYROXINE 100 MCG TAB PO SCH (05:24)
[2021-06-17] MEDS: BUTALB/APAP/CAFF 50-325-40MG TAB PO PRN ×3 (06:07→22:55)
[2021-06-17 07:29] LABS: Anisocytosis Slight; Basophils # (A) 0.1 k/uL (0-0.2); Basophils % (A) 1 %; Eosinophils # (A) 0.5 k/uL (0-0.7); Eosinophils % (A) 7 %; HCT 27.4 % (34.0-46.0); HGB 8.3 gm/dL (11.4-16.0); Hypochromasia Marked; Lymphocytes # (A) 2.2 k/uL (1.0-4.8); Lymphocytes % (A) 33 %; MCH 26.6 pg (25.0-35.0); MCHC 30.2 g/dL (31.0-37.0); MCV 88.2 fL (80.0-100.0); Mean Platelet Volume 7.7; Monocytes # (A) 0.5 k/uL (0-1.0); Monocytes % (A) 8 %; Neutrophils # (A) 3.3 k/uL (1.3-7.7); Neutrophils % (A) 48 %; Platelet Count 462 k/uL (150-450); RBC 3.11 m/uL (3.80-5.40); RDW 18.3 % (11.5-15.5); WBC 6.8 k/uL (3.8-10.6)
[2021-06-17 07:47] LABS: ALT 103 U/L (4-34); AST 67 U/L (14-36); African American GFR (CKD) 38 (>60 ml/min/1.73 sqM); Albumin 3.2 g/dL (3.5-5.0); Alkaline Phosphatase 275 U/L (38-126); Anion Gap 9 mmol/L; Blood Urea Nitrogen 42 mg/dL (7-17); Calcium 8.4 mg/dL (8.4-10.2); Carbon Dioxide 25 mmol/L (22-30); Chloride 102 mmol/L (98-107); Globulin 3.2 g/dL; Glucose 92 mg/dL (74-99); Magnesium 2.2 mg/dL (1.6-2.3); Non-African American GFR(CKD) 33 (>60 ml/min/1.73 sqM); Phosphorus 4.6 mg/dL (2.5-4.5); Potassium 5.2 mmol/L (3.5-5.1); Sodium 136 mmol/L (137-145); Total Bilirubin 0.4 mg/dL (0.2-1.3); Total Protein 6.4 g/dL (6.3-8.2)
[2021-06-17] MEDS: PANTOPRAZOLE 40 MG TABLET PO SCH (08:16)
[2021-06-17] MEDS: ASPIRIN 81 MG PO SCH (08:16)
[2021-06-17] MEDS: hydrOXYzine pamoate 25 MG CAP PO SCH ×3 (08:16→20:24)
[2021-06-17] MEDS: LORATADINE 10 MG TAB PO SCH (08:16)
[2021-06-17] MEDS: FUROSEMIDE 20 MG TAB PO SCH (08:16)
[2021-06-17] MEDS: buPROPion XL 300 MG TAB.ER.24H PO SCH (08:16)
[2021-06-17] MEDS: THIAMINE 100 MG TAB PO SCH (08:16)
[2021-06-17] MEDS: buPROPion XL 150 MG TAB.ER.24H PO SCH (08:16)
[2021-06-17] MEDS: busPIRone HCl 10 MG TAB PO SCH ×2 (08:16→20:22)
[2021-06-17] MEDS: oxyCODONE-APAP 7.5-325MG 1 EACH TAB PO SCH ×2 (08:16→20:23)
[2021-06-17] MEDS: CEFEPIME 1 GM in SODIUM CHLORIDE 0.9% 50 ML IVPB SCH ×2 (08:17→20:27)
[2021-06-17] MEDS: ENOXAPARIN 30 MG/0.3 ML SYRINGE SQ SCH (08:17)
[2021-06-17] MEDS: SYMBICORT 160-4.5 MCG INHALER INHALATION SCH ×2 (09:17→20:02)
[2021-06-17] MEDS: FERROUS SULFATE 325 MG TAB PO SCH (10:23)
--- NOTE | 2021-06-17 11:03 | P.NPCON ---
History of Present Illness - Reason for Consult acute renal failure, chronic renal failure - History of Present Illness Reason for consultation: Acute kidney injury on chronic kidney disease History of present illness: Patient is a 76-year-old female seen in renal consultation for acute kidney injury and chronic kidney disease. Patient has chronic kidney disease stage IIIB with baseline creatinine in the range of 1.3-1.5. Patient's creatinine in the past has been higher closer to 2. She has history of atrophic right kidney. Creatinine was 2.1 and on admission is 1.54 today. Patient also states she has no stomach and is currently receiving TPN every night. This is managed at [facility]. She was told that she was dehydrated and was is to go to the hospital for renal failure. Her oral intake is just fair. Denies vomiting or diarrhea. No chest pain or shortness of breath. Currently being treated with IV antibiotics for UTI and bacteremia. Patient's urine culture is positive for Enterobacter and blood cultures positive for staph epidermidis as well as pseudomonas. No edema. Denies use of nonsteroidals. No history of diabetes. Vital signs are stable. General: The patient appeared well nourished and normally developed. HEENT: Head exam is unremarkable. LUNGS: Breath sounds decreased. HEART: Rate and Rhythm are regular. ABDOMEN: Soft, no distention. EXTREMITITES: No edema. Past Medical History Past Medical History: Asthma, COPD, CVA/TIA, GERD/Reflux, Memory Impairment, Osteoarthritis (OA), Pneumonia, Renal Disease, Respiratory Disorder, Thyroid Disorder Additional Past Medical History / Comment(s): Aspiration, pneumonias, covid pneumonia, protein calorie malnutrition, pt is on TPN/ manage thru [facility], chronic anemia, gastric ulcers/PUD, pancreatitis, bowel obstruction/surgery, constipation, CKD stage IV, TIA, chronic migraines, chronic back/cervical pain/spinal stenosis, hypothyroid, hyponatremia. History of Any Multi-Drug Resistant Organisms: Other MDRO Past Surgical History: Back Surgery, Bowel Resection, Hysterectomy, Joint Replacement Additional Past Surgical History / Comment(s): LOWER BACK SURGERY lamenectomy/discetomy then had a revison of that sx. 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 FATHER HAD TB WHEN HE WAS A CHILD .FATHER AT AGE 87. Mother Family Medical History: Cancer Additional Family Medical History / Comment(s): MOTHER AT AGE 58 OF OVARIAN CANCER. Medications and Allergies Home Medications Medication Instructions Recorded Confirmed Type Ferrous Sulfate [Iron (65 MG 325 mg PO DAILY@1200 11/06/15 06/06/21 History Elemental)] Levothyroxine Sodium [Synthroid] 88 mcg PO DAILY 06/07/19 06/06/21 History calcitrioL [Calcitriol] 1 mcg PO MOWEFR 06/07/19 06/06/21 History busPIRone HCL [Buspar] 30 mg PO BID 04/14/20 06/06/21 History Potassium Chloride ER [K-Dur 10] 30 meq PO DAILY@1200 04/18/20 06/06/21 History Pantoprazole Sodium [Protonix] 40 mg PO BID 30 Days #60 tablet. 04/27/20 06/06/21 Rx Butalb/APAP/Caff 50-325-40Mg 1 tab PO BID PRN 06/30/20 06/06/21 History [Fioricet 50-325-40] buPROPion XL [Wellbutrin XL] 150 mg PO DAILY 11/04/20 06/06/21 History Furosemide [Lasix] 20 mg PO DAILY #6 tab 12/13/20 06/06/21 Rx fentaNYL 75MCG/HR PATCH [Duragesic 1 patch TRANSDERM Q72H 3 Days #3 12/13/20 06/06/21 Rx 75MCG/HR] patch Tpn 1 dose IV DAILY@1900 02/20/21 06/06/21 History buPROPion XL [Wellbutrin XL] 300 mg PO DAILY 02/20/21 06/06/21 History Albuterol Sulfate [Albuterol 2 puff INHALATION RT-Q6H PRN 04/07/21 06/06/21 History Sulfate Hfa] Budesonide/Formoterol Fumarate 2 puff INHALATION RT-BID 04/07/21 06/06/21 History [Symbicort 160-4.5 Mcg Inhaler] Loratadine [Claritin] 10 mg PO DAILY 04/07/21 06/06/21 History Mirtazapine [Remeron] 45 mg PO HS 04/07/21 06/06/21 History SUMAtriptan succinate [Imitrex] 50 mg PO BID PRN 05/04/21 06/06/21 History Thiamine [Vitamin B-1] 100 mg PO DAILY 05/04/21 06/06/21 History Aspirin EC [Ecotrin Low Dose] 81 mg PO DAILY 05/12/21 06/06/21 History hydrOXYzine pamoate [Vistaril] 50 mg PO TID 06/06/21 06/06/21 History oxyCODONE-APAP 7.5-325MG [Percocet 1 tab PO BID 06/06/21 06/06/21 History 7.5-325 mg] Allergies Allergy/AdvReac Type Severity Reaction Status Date / Time denosumab [From Prolia] Allergy SEVERE Verified 06/06/21 23:15 CALCIUM LOSS morphine AdvReac Confusion Verified 06/06/21 23:15 DUST Allergy Itching Uncoded 06/06/21 23:15 MOLDS Allergy Itching Uncoded 06/06/21 23:15 Physical Exam Vitals: Vital Signs Temp Pulse Resp BP BP Pulse Ox 06/17/21 08:00 97.7 F 76 18 134/65 99 06/17/21 00:23 98.0 F 77 18 128/57 100 06/16/21 20:05 97.4 F L 91 18 150/69 98 06/16/21 14:00 97.8 F 86 18 107/63 98 Intake and Output 06/16/21 06/17/21 06/17/21 22:59 06:59 14:59 Other: Voiding Method Toilet Toilet # Voids 2 # Bowel Movements 0 Results - Lab Results Most recent lab results Calcium 8.4 mg/dL (8.4-10.2) 06/17/21 06:49 Phosphorus 4.6 mg/dL (2.5-4.5) H 06/17/21 06:49 Magnesium 2.2 mg/dL (1.6-2.3) 06/17/21 06:49 06/17/21 06:49 06/17/21 06:49 Assessment and Plan Plan: Assessment: 1. Acute kidney injury mostly prerenal secondary to sepsis. Creatinine was 2.1 and on admission and is 1.54 today. 2. Chronic kidney disease stage IIIB/4 with baseline creatinine now near 1.3- 1.5. However it was closer to 2 in the past. 3. Severe sepsis secondary to UTI and bacteremia on IV antibiotics. 4. History of bowel obstruction. Patient receives TPN every night. Plan: Maintain IV fluids. Stop Lasix. Avoid nephrotoxins. Cleared for PICC line placement of the dominant arm. Follow up outpatient 1-2 weeks post discharge. Thank you for the consultation. I will continue to follow the patient with you during her hospital stay.
[2021-06-17] MEDS ORDERED: LIDOCAINE 1% INJ 10MG/ML (20 ML MDV) ONE (13:48)
[2021-06-17] MEDS ORDERED: LIDOCAINE 1% INJ 10MG/ML (20 ML MDV) SQ ONE (14:00)
[2021-06-17] MEDS: SODIUM CHLORIDE 0.9% 1,000 ML IV SCH (14:44)
[2021-06-17] MEDS ORDERED: MVI, ADULT NO.4 WITH VIT K 10 ML, TRACE (CONC-1ML/DOSE) 1 ML, SODIUM ACETATE 30 MEQ, MA... IV ONE ×6 (16:00)
--- NOTE | 2021-06-17 17:18 | IR ---
EXAMINATION TYPE: IR cvc insert >=5 years DATE OF EXAM: 06/17/2021 COMPARISON: NONE CLINICAL HISTORY: Needs long-term intravenous access for total parenteral nutrition Needs long-term i ntravenous access for antibiotics. PROCEDURE: Hand hygiene obtained with soap and water and alcohol-based hand rub. After informed consent, the skin overlying the right basilic vein was localized with ultrasound and n oted to be compressible and patent. An ultrasound image was obtained and submitted on the patient's chart. The overlying skin was prepped and draped and Lidocaine was used for local anesthesia. A ski n justyn was made with a scalpel. Access was gained to the vein under ultrasound guidance with a 21 ga uge needle and a 0.018 inch wire was advanced. Access site was dilated with Peel-Away sheath and cat heter tailored to the appropriate length and advanced such that the distal tip is at the cavoatrial j unction. Spot image was obtained verifying placement. Catheter was fixed to the skin and a sterile dressing was placed following hemostasis. Catheter was aspirated and flushed with saline. Patient w as discharged in stable condition without complication.Maximal barrier technique is utilized. Ultras ound image is documented on the chart. Ultrasound used with sterile technique. Fluoro time and fluoroscopic images submitted to document procedure: 3.4 minutes fluoroscopy time, 14 6 intraoperative images document the procedure IMPRESSION: STATUS POST ULTRASOUND AND FLUOROSCOPIC GUIDED PICC LINE PLACEMENT, READY FOR USE. THIS PROCEDURE WAS PERFORMED BY THE UNDERSIGNED.
[2021-06-17] MEDS ORDERED: FAT EMULSION 20% 500 ML in EMPTY BAG 1 BAG IV SCH (18:00)
--- NOTE | 2021-06-17 19:15 | P.PN ---
Subjective Progress Note Date: 06/17/21 This is a 76-year-old female well-known to our services. Patient presented with general complaints of weakness and nausea. Patient has a past medical history of chronic TPN use due to multiple stomach surgeries managed 80 round, asthma, COPD, thyroid disorder, chronic pain, anxiety depression and panic disorder. Patient reports she has been not feeling well for the past few days denies fever. Reports some nausea. Patient also reports headache which is chronic for her. KUB x-ray completed showing nonspecific bowel gas pattern without radiographic evidence for acute process. Chest x-ray was completed showing left mid lung disease which are similar to immediate prior to visualize dating back 07/07/2020 right mid and upper lobe airspace OKC similar to prior dating superimposed pneumonia is not entirely excluded. Patient was recently admitted and treated after sergio COVID-19 and pneumonia. Patient's creatinine on admission 2.19 bun 44. White blood cell but slightly elevated 11.8. COVID-19 negative. UA showing small amount of leukocyte Estrace urine culture ordered. At this time patient is resting comfortably in bed requesting pain medication for her chronic pain and headache. Current vitals temp 97.8, pulse rate 86, respiratory rate 18 blood pressure 124/73 oxygen saturation 96 on room air On 06/08/2021 patient was seen and examined on the medical floor she is alert and oriented 3 in no apparent distress there is no fever or chills no headache or dizziness no chest pain no shortness of breath no cough no nausea or vomiting no abdominal pain no diarrhea no blood in the stools no burning with urination no frequency or urgency no hematuria . Vital exam reveals a temperature of 98.1 pulse 80 respiration 18 blood pressure 150/77 pulse ox 99% on room air laboratory data reveals a white blood count of 7.7 hemoglobin 9.2 platelet count 458 BUN 23 creatinine 1.4 On 06/09/2021 patient is alert and oriented 3. Patient complaining of headache. Patient had temperature yesterday 101.2 patient remains on Rocephin for urinary tract infection. Pulmonary services are following. Patient is complaining of mild flank pain. Patient denies chest pain. Patient complaining of occasional nausea. Patient denies any urinary burning or frequency. On 06/10/2021 patient was seen and examined on the medical floor she is alert and oriented 3 in no apparent distress she states she is feeling somewhat better today, during the weekend patient had sudden severe elevation in her liver enzymes including AST ALT and alkaline phosphatase this was accompanied by elevated temperatures nausea and vomiting symptoms improved gradually, today liver enzymes are down. Most likely patient passed a stone through the common bile duct and had a biliary colic with elevated liver enzymes. At this time temperature had come down liver enzymes are coming down patient is maintained on IV antibiotics and is followed by infectious disease On 06/11/2021 patient was seen and examined on the medical floor she is alert and oriented 3 in no apparent distress there is no fever or chills no headache or dizziness no chest pain no shortness of breath no cough no nausea or vomiting no abdominal pain no diarrhea no blood in the stools no burning with urination no frequency or urgency and no hematuria On 06/12/2021 patient is alert and oriented 3. Patient reports that she feels much improved. AST 59, ALT 180 and alkaline phosphatase 257. Patient has remained afebrile. Patient remains on IV Maxipime. Infectious disease services are following. Patient denies chest pain or shortness of breath. Patient denies nausea vomiting or diarrhea. Patient denies any urinary burning or frequency. On 06/13/2021 patient was seen and examined on the medical floor she is alert and oriented 3 in no apparent distress there is no fever or chills no headache or dizziness no chest pain no shortness of breath no cough no nausea or vomiting no abdominal pain no diarrhea no blood in the stools no burning with urination no frequency or urgency and no hematuria. Potassium level was elevated yesterday at 5.3 potassium supplement discontinued IV fluid increased to 100 mL normal saline per hour patient is still maintained on IV antibiotics Maxipime and Cubicin and followed by infectious disease. On 06/14/2021 patient is alert and oriented 3. Potassium 4.0. patient patient remains on IV antibiotics. White blood cell 9.15. PICC line has been removed. Current temp 97.8, heart rate 84, respiratory rate 16, blood pressure 117/62 patient satting 98% on room air. Per ID patient will likely need PICC line placement once clearance of bacteremia. On 06/15/2021 patient is alert and oriented 3. Potassium increasing to 5.6 creatinine 1.63 and bun 45 will resume normal saline fluid at 100. Patient remains on cefepime and azithromycin awaiting for blood cultures plans for poss ible PICC line placement on Thursday. Patient is complaining of generalized pain. Patient is maintained on IV Dilaudid when necessary plus home pain medication at this time. Patient denies chest pain. Patient denies nausea vomiting or diarrhea. Patient denies any urinary burning or frequency. On 06/16/2021 patient was seen and examined on the medical floor she is alert and oriented 3 in no apparent distress there is no fever or chills no headache or dizziness no chest pain no shortness of breath no cough no nausea or vomiting pain no diarrhea and no urinary symptoms. At this time we are waiting for clearance from Dr. Gregorio infectious disease to replace the PICC line so patient can be restarted on TPN On 06/17 2021 patient was seen and examined on the medical floor there is no fever or chills no headache or dizziness no chest pain no shortness of breath no cough no nausea or vomiting no abdominal pain no diarrhea and no urinary symptoms. PICC line was reinserted today and patient will be restarted on TPN tonight Objective - Vital Signs Vital signs: Vital Signs Temp 97.9 F 06/17/21 14:00 Pulse 85 06/17/21 14:00 Resp 18 06/17/21 14:00 BP 129/68 06/17/21 14:00 Pulse Ox 99 06/17/21 14:00 Intake & Output 06/16/21 06/17/21 06/17/21 18:59 06:59 18:59 Intake Total 444 Balance 444 Weight 40.823 kg Intake: Oral 444 Other: Voiding Method Toilet Toilet Toilet # Voids 2 3 # Bowel Movements 0 - Exam Head normocephalic and atraumatic Neck supple no JVD no goiter Lungs clear to auscultation bilaterally no wheezing or crackles Heart regular rate and rhythm S1-S2, no rub or gallop Abdomen is soft nontender nondistended positive bowel sounds no hepatosplenomegaly Extremities no edema Neuro alert and orientated to 3 - Labs CBC & Chem 7: 06/17/21 06:49 06/17/21 06:49 Labs: Abnormal Lab Results - Last 24 Hours (Table) 06/17/21 06/17/21 Range/Units 06:49 06:49 RBC 3.11 L (3.80-5.40) m/uL Hgb 8.3 L (11.4-16.0) gm/dL Hct 27.4 L (34.0-46.0) % MCHC 30.2 L (31.0-37.0) g/dL RDW 18.3 H (11.5-15.5) % Plt Count 462 H (150-450) k/uL Sodium 136 L (137-145) mmol/L Potassium 5.2 H (3.5-5.1) mmol/L BUN 42 H (7-17) mg/dL Creatinine 1.54 H (0.52-1.04) mg/dL Phosphorus 4.6 H (2.5-4.5) mg/dL AST 67 H (14-36) U/L ALT 103 H (4-34) U/L Alkaline Phosphatase 275 H (38-126) U/L Albumin 3.2 L (3.5-5.0) g/dL Microbiology - Last 24 Hours (Table) 06/13/21 14:31 Blood Culture - Preliminary Blood No Growth after 96 hours 06/11/21 11:02 Blood Culture - Final Blood No Growth after 144 hours 06/13/21 06:00 Blood Culture - Preliminary Blood No Growth after 96 hours 06/14/21 06:37 Blood Culture - Preliminary Blood No Growth after 72 hours 06/15/21 06:07 Blood Culture - Preliminary Blood No Growth after 48 hours Assessment and Plan Assessment: 1. Generalized weakness and dehydration 2. Acute kidney injury. Improving 3. Urinary tract infection. Patient started on Rocephin urine culture ordered 4. History of recurrent aspiration pneumonia maintained on TPN 5. History of hypothyroidism. TSH elevated at 13.9 will increase Synthroid dose 8. History of immunoglobulin disorder 9. History of chronic pain with history of laminectomy 10. History of degenerative stress arthritis 11. History of pancreatitis 12. History of bowel obstruction 13. History of severe protein calorie malnutrition 14. History of COVID-19 infection and pneumonia 15. Severe and sudden elevation in liver enzymes yesterday including AST ALT and alkaline phosphatase, today liver enzymes are improving this could be related to a common bile duct stone will continue to monitor 16. Sepsis as evidenced positive blood culture DVT prophylaxis Lovenox. GI prophylaxis Protonix Infectious disease service is following PICC line removed Continue IV antibiotics Patient will require home TPN
[2021-06-17] MEDS: MIRTAZAPINE 45 MG TABLET PO SCH (20:25)
--- NOTE | 2021-06-17 22:45 | P.PN ---
Subjective Progress Note Date: 06/17/21 Principal diagnosis: Sepsis Patient is a 76-year-old female with multiple comorbidities admitted to the hospital with weakness patient also have an episode of sepsis with fever and elevated white count and did have a jump in the liver enzymes with a question of possible possible stones and did have a positive UA with Enterobacter. Patient blood culture positive for staph epi and gram-negative and the patient PICC line was discontinued as of 06/13/2021 On today's evaluation that is 06/17/2021, the patient remains to be afebrile, the patient denies chest pain shortness of breath or cough , the patient has been complaining of some abdominal pain around upper abdominal area but denies any worsening, the patient denies having nausea no vomiting and no diarrhea Objective - Vital Signs Vital signs: Vital Signs Temp 97.7 F 06/17/21 08:00 Pulse 76 06/17/21 08:00 Resp 18 06/17/21 08:00 BP 134/65 06/17/21 08:00 Pulse Ox 99 06/17/21 08:00 Intake & Output 06/16/21 06/17/21 06/17/21 18:59 06:59 18:59 Intake Total 444 Balance 444 Intake: Oral 444 Other: Voiding Method Toilet Toilet Toilet # Voids 2 # Bowel Movements 0 - Exam GENERAL DESCRIPTION: An elderly female lying in bed in no distress RESPIRATORY SYSTEM: Unlabored breathing , decreased breath sounds at bases HEART: S1 S2 regular rate and rhythm , ABDOMEN: Soft , no tenderness EXTREMITIES: No edema feet - Labs CBC & Chem 7: 06/17/21 06:49 06/17/21 06:49 Labs: Abnormal Lab Results - Last 24 Hours (Table) 06/17/21 06/17/21 Range/Units 06:49 06:49 RBC 3.11 L (3.80-5.40) m/uL Hgb 8.3 L (11.4-16.0) gm/dL Hct 27.4 L (34.0-46.0) % MCHC 30.2 L (31.0-37.0) g/dL RDW 18.3 H (11.5-15.5) % Plt Count 462 H (150-450) k/uL Sodium 136 L (137-145) mmol/L Potassium 5.2 H (3.5-5.1) mmol/L BUN 42 H (7-17) mg/dL Creatinine 1.54 H (0.52-1.04) mg/dL Phosphorus 4.6 H (2.5-4.5) mg/dL AST 67 H (14-36) U/L ALT 103 H (4-34) U/L Alkaline Phosphatase 275 H (38-126) U/L Albumin 3.2 L (3.5-5.0) g/dL Microbiology - Last 24 Hours (Table) 06/13/21 06:00 Blood Culture - Preliminary Blood No Growth after 96 hours 06/14/21 06:37 Blood Culture - Preliminary Blood No Growth after 72 hours 06/15/21 06:07 Blood Culture - Preliminary Blood No Growth after 48 hours 06/13/21 14:31 Blood Culture - Preliminary Blood No Growth after 72 hours 06/11/21 11:02 Blood Culture - Preliminary Blood No Growth after 120 hours Assessment and Plan (1) Sepsis Current Visit: Yes Status: Acute Code(s): A41.9 - SEPSIS, UNSPECIFIED ORGANISM SNOMED Code(s): 21133789 Plan: 1-Patient presented to hospital with weakness in this patient now with evidence of sepsis with a fever elevated white count source could be urinary as the patient had mildly positive UA and concern for possible cholangitis with elevated liver enzymes and also concern for a PICC line infection. Which has been discontinued 2blood cultures finalized as staph epi staph epi as well as gram-negative which has been finalized with Pseudomonas that is resistant to meropenem but sensitive to Fortaz, patient to continue with daptomycin and cefepime repeat blood culture have been negative so far, the patient will be able to get a PICC daily and continue with daptomycin and cefepime to finish a two-week course of therapy, prescription was provided to the case briefer Time with Patient: Less than 30
[2021-06-18] MEDS: ALPRAZolam 0.25 MG TAB PO PRN ×4 (02:49→22:38)
[2021-06-18] MEDS: HYDROmorphone 1 MG/ML 1 ML SYRINGE IVP PRN ×3 (05:59→18:59)
[2021-06-18] MEDS: LEVOTHYROXINE 100 MCG TAB PO SCH (06:00)
[2021-06-18] MEDS: BUTALB/APAP/CAFF 50-325-40MG TAB PO PRN ×3 (06:00→21:45)
[2021-06-18] MEDS: SYMBICORT 160-4.5 MCG INHALER INHALATION SCH ×2 (07:32→20:42)
[2021-06-18] MEDS: ONDANSETRON 4 MG/2 ML VIAL IVP PRN (09:09)
[2021-06-18] MEDS: busPIRone HCl 10 MG TAB PO SCH ×2 (09:12→21:43)
[2021-06-18] MEDS: buPROPion XL 300 MG TAB.ER.24H PO SCH (09:14)
[2021-06-18] MEDS: buPROPion XL 150 MG TAB.ER.24H PO SCH (09:14)
[2021-06-18] MEDS: hydrOXYzine pamoate 25 MG CAP PO SCH ×3 (09:14→21:44)
[2021-06-18] MEDS: THIAMINE 100 MG TAB PO SCH (09:14)
[2021-06-18] MEDS: oxyCODONE-APAP 7.5-325MG 1 EACH TAB PO SCH ×2 (09:15→21:43)
[2021-06-18] MEDS: ASPIRIN 81 MG PO SCH (09:16)
[2021-06-18] MEDS: LORATADINE 10 MG TAB PO SCH (09:16)
[2021-06-18] MEDS: PANTOPRAZOLE 40 MG TABLET PO SCH (09:16)
[2021-06-18] MEDS: CEFEPIME 1 GM in SODIUM CHLORIDE 0.9% 50 ML IVPB SCH ×2 (09:17→21:46)
[2021-06-18] MEDS: ENOXAPARIN 30 MG/0.3 ML SYRINGE SQ SCH (09:18)
--- NOTE | 2021-06-18 10:02 | P.PN ---
Subjective Patient is seen in follow-up for acute kidney injury on chronic kidney disease. Renal function fairly stable the last few days. Receives TPN every night. Also on IV fluids. Good urine output. Vital signs are stable. General: The patient appeared well nourished and normally developed. HEENT: Head exam is unremarkable. LUNGS: Breath sounds decreased. HEART: Rate and Rhythm are regular. ABDOMEN: Soft, no distention EXTREMITITES: No edema. Objective - Vital Signs Vital signs: Vital Signs Temp 97.4 F L 06/18/21 08:00 Pulse 76 06/18/21 08:00 Resp 18 06/18/21 08:00 BP 126/36 06/18/21 08:00 Pulse Ox 99 06/18/21 08:00 Intake & Output 06/17/21 06/18/21 06/18/21 18:59 06:59 18:59 Weight 40.823 kg Other: Voiding Method Toilet # Voids 3 2 1 - Labs CBC & Chem 7: 06/17/21 06:49 06/17/21 06:49 Labs: Microbiology - Last 24 Hours (Table) 06/13/21 06:00 Blood Culture - Preliminary Blood No Growth after 120 hours 06/14/21 06:37 Blood Culture - Preliminary Blood No Growth after 96 hours 06/15/21 06:07 Blood Culture - Preliminary Blood No Growth after 72 hours 06/13/21 14:31 Blood Culture - Preliminary Blood No Growth after 96 hours 06/11/21 11:02 Blood Culture - Final Blood No Growth after 144 hours Assessment and Plan Plan: Assessment: 1. Acute kidney injury mostly prerenal secondary to sepsis. Creatinine was 2.1 and on admission - 1.54 yesterday. 2. Chronic kidney disease stage IIIB/4 with baseline creatinine now near 1.3- 1.5. However it was closer to 2 in the past. 3. Severe sepsis secondary to UTI and bacteremia on IV antibiotics. 4. History of bowel obstruction. Patient receives TPN every night. Plan: Decrease normal saline to 50 mL an hour. Receives TPN every night. Lasix discontinued. Avoid nephrotoxins. Follow up outpatient 1-2 weeks post discharge.
[2021-06-18 12:03] LABS: Magnesium 2.3 mg/dL (1.5-2.4); Phosphorus 3.6 mg/dL (2.4-5.1)
[2021-06-18 12:08] LABS: Basophils # (A) 0.11 X 10*3/uL (0.00-0.10); Basophils % (A) 1.2 %; Eosinophils # (A) 0.53 X 10*3/uL (0.04-0.35); HCT 30.8 % (37.2-46.3); Immature Grans, Automated 0.7 %; Lymphocytes # (A) 2.24 X 10*3/uL (0.90-5.00); Lymphocytes % (A) 25.3 %; MCH 25.6 pg (27.0-32.0); MCHC 29.2 g/dL (32.0-37.0); MCV 87.5 fL (80.0-97.0); Mean Platelet Volume 10.4 fL (9.5-12.2); Monocytes # (A) 0.88 X 10*3/uL (0.20-1.00); NRBC Per 100 WBC 0 /100 WBCS (0.0-0.0); Neutrophils # (A) 5.02 X 10*3/uL (1.80-7.70); Neutrophils % (A) 56.8 %; Platelet Count 552 X 10*3/uL (140-440); RBC 3.52 X 10*6/uL (4.10-5.20); RDW 18.9 % (11.5-14.5); WBC 8.84 X 10*3/uL (4.50-10.00)
[2021-06-18 12:32] LABS: ALT 101 U/L (8-44); AST 42 U/L (13-35); African American GFR (CKD) 39.4 (60.0-200.0); Albumin/Globulin Ratio 1.33 (1.60-3.17); Alkaline Phosphatase 345 U/L (41-126); BUN/Creat Ratio 22.53 Ratio (12.00-20.00); Blood Urea Nitrogen 33.8 mg/dL (9.0-27.0); Calcium 9.5 mg/dL (8.7-10.3); Carbon Dioxide 24.5 mmol/L (20.0-27.5); Chloride 96 mmol/L (96-109); Glucose 100 mg/dL (70-110); Sodium 133 mmol/L (135-145); Total Bilirubin <0.15 mg/dL (0.30-1.20)
[2021-06-18] MEDS: FERROUS SULFATE 325 MG TAB PO SCH (12:53)
[2021-06-18] MEDS: SODIUM CHLORIDE 0.9% 1,000 ML IV SCH ×2 (17:05→22:11)
[2021-06-18] MEDS: CALCIUM GLUCONATE IV SCH ×6 (17:09)
[2021-06-18] MEDS: MAGNESIUM SULFATE IV SCH ×6 (17:09)
[2021-06-18] MEDS: [UNRECOGNIZED DRUG - OTHER] IV SCH ×6 (17:09)
[2021-06-18] MEDS: SODIUM ACETATE IV SCH ×6 (17:09)
[2021-06-18 17:42] LABS: Glucose,Whole Blood 90 mg/dL (75-99)
--- NOTE | 2021-06-18 19:12 | P.PN ---
Subjective Progress Note Date: 06/18/21 This is a 76-year-old female well-known to our services. Patient presented with general complaints of weakness and nausea. Patient has a past medical history of chronic TPN use due to multiple stomach surgeries managed 80 round, asthma, COPD, thyroid disorder, chronic pain, anxiety depression and panic disorder. Patient reports she has been not feeling well for the past few days denies fever. Reports some nausea. Patient also reports headache which is chronic for her. KUB x-ray completed showing nonspecific bowel gas pattern without radiographic evidence for acute process. Chest x-ray was completed showing left mid lung disease which are similar to immediate prior to visualize dating back 07/07/2020 right mid and upper lobe airspace OKC similar to prior dating superimposed pneumonia is not entirely excluded. Patient was recently admitted and treated after sergio COVID-19 and pneumonia. Patient's creatinine on admission 2.19 bun 44. White blood cell but slightly elevated 11.8. COVID-19 negative. UA showing small amount of leukocyte Estrace urine culture ordered. At this time patient is resting comfortably in bed requesting pain medication for her chronic pain and headache. Current vitals temp 97.8, pulse rate 86, respiratory rate 18 blood pressure 124/73 oxygen saturation 96 on room air On 06/08/2021 patient was seen and examined on the medical floor she is alert and oriented 3 in no apparent distress there is no fever or chills no headache or dizziness no chest pain no shortness of breath no cough no nausea or vomiting no abdominal pain no diarrhea no blood in the stools no burning with urination no frequency or urgency no hematuria . Vital exam reveals a temperature of 98.1 pulse 80 respiration 18 blood pressure 150/77 pulse ox 99% on room air laboratory data reveals a white blood count of 7.7 hemoglobin 9.2 platelet count 458 BUN 23 creatinine 1.4 On 06/09/2021 patient is alert and oriented 3. Patient complaining of headache. Patient had temperature yesterday 101.2 patient remains on Rocephin for urinary tract infection. Pulmonary services are following. Patient is complaining of mild flank pain. Patient denies chest pain. Patient complaining of occasional nausea. Patient denies any urinary burning or frequency. On 06/10/2021 patient was seen and examined on the medical floor she is alert and oriented 3 in no apparent distress she states she is feeling somewhat better today, during the weekend patient had sudden severe elevation in her liver enzymes including AST ALT and alkaline phosphatase this was accompanied by elevated temperatures nausea and vomiting symptoms improved gradually, today liver enzymes are down. Most likely patient passed a stone through the common bile duct and had a biliary colic with elevated liver enzymes. At this time temperature had come down liver enzymes are coming down patient is maintained on IV antibiotics and is followed by infectious disease On 06/11/2021 patient was seen and examined on the medical floor she is alert and oriented 3 in no apparent distress there is no fever or chills no headache or dizziness no chest pain no shortness of breath no cough no nausea or vomiting no abdominal pain no diarrhea no blood in the stools no burning with urination no frequency or urgency and no hematuria On 06/12/2021 patient is alert and oriented 3. Patient reports that she feels much improved. AST 59, ALT 180 and alkaline phosphatase 257. Patient has remained afebrile. Patient remains on IV Maxipime. Infectious disease services are following. Patient denies chest pain or shortness of breath. Patient denies nausea vomiting or diarrhea. Patient denies any urinary burning or frequency. On 06/13/2021 patient was seen and examined on the medical floor she is alert and oriented 3 in no apparent distress there is no fever or chills no headache or dizziness no chest pain no shortness of breath no cough no nausea or vomiting no abdominal pain no diarrhea no blood in the stools no burning with urination no frequency or urgency and no hematuria. Potassium level was elevated yesterday at 5.3 potassium supplement discontinued IV fluid increased to 100 mL normal saline per hour patient is still maintained on IV antibiotics Maxipime and Cubicin and followed by infectious disease. On 06/14/2021 patient is alert and oriented 3. Potassium 4.0. patient patient remains on IV antibiotics. White blood cell 9.15. PICC line has been removed. Current temp 97.8, heart rate 84, respiratory rate 16, blood pressure 117/62 patient satting 98% on room air. Per ID patient will likely need PICC line placement once clearance of bacteremia. On 06/15/2021 patient is alert and oriented 3. Potassium increasing to 5.6 creatinine 1.63 and bun 45 will resume normal saline fluid at 100. Patient remains on cefepime and azithromycin awaiting for blood cultures plans for poss ible PICC line placement on Thursday. Patient is complaining of generalized pain. Patient is maintained on IV Dilaudid when necessary plus home pain medication at this time. Patient denies chest pain. Patient denies nausea vomiting or diarrhea. Patient denies any urinary burning or frequency. On 06/16/2021 patient was seen and examined on the medical floor she is alert and oriented 3 in no apparent distress there is no fever or chills no headache or dizziness no chest pain no shortness of breath no cough no nausea or vomiting pain no diarrhea and no urinary symptoms. At this time we are waiting for clearance from Dr. Gregorio infectious disease to replace the PICC line so patient can be restarted on TPN On 06/17 2021 patient was seen and examined on the medical floor there is no fever or chills no headache or dizziness no chest pain no shortness of breath no cough no nausea or vomiting no abdominal pain no diarrhea and no urinary symptoms. PICC line was reinserted today and patient will be restarted on TPN tonight On 06/18/2020 patient was seen and examined she is alert and oriented 3 in no apparent distress there is no fever or chills no headache or dizziness no chest pain no shortness of breath no cough no nausea or vomiting no abdominal pain no diarrhea and no urinary symptoms she was started on TPN yesterday and is tolerating well, will monitor labs possible discharge to home tomorrow Objective - Vital Signs Vital signs: Vital Signs Temp 97.4 F L 06/18/21 08:00 Pulse 76 06/18/21 08:00 Resp 18 06/18/21 08:00 BP 126/36 06/18/21 08:00 Pulse Ox 99 06/18/21 08:00 Intake & Output 06/17/21 06/18/21 06/18/21 18:59 06:59 18:59 Weight 40.823 kg Other: Voiding Method Toilet # Voids 3 2 - Exam Head normocephalic and atraumatic Neck supple no JVD no goiter Lungs clear to auscultation bilaterally no wheezing or crackles Heart regular rate and rhythm S1-S2, no rub or gallop Abdomen is soft nontender nondistended positive bowel sounds no hepatosplenomegaly Extremities no edema Neuro alert and orientated to 3 - Labs CBC & Chem 7: 06/18/21 07:18 06/18/21 07:18 Labs: Microbiology - Last 24 Hours (Table) 06/14/21 06:37 Blood Culture - Preliminary Blood No Growth after 96 hours 06/15/21 06:07 Blood Culture - Preliminary Blood No Growth after 72 hours 06/13/21 14:31 Blood Culture - Preliminary Blood No Growth after 96 hours 06/11/21 11:02 Blood Culture - Final Blood No Growth after 144 hours 06/13/21 06:00 Blood Culture - Preliminary Blood No Growth after 96 hours Assessment and Plan Assessment: 1. Generalized weakness and dehydration 2. Acute kidney injury. Improving 3. Urinary tract infection. Patient started on Rocephin urine culture ordered 4. History of recurrent aspiration pneumonia maintained on TPN 5. History of hypothyroidism. TSH elevated at 13.9 will increase Synthroid dose 8. History of immunoglobulin disorder 9. History of chronic pain with history of laminectomy 10. History of degenerative stress arthritis 11. History of pancreatitis 12. History of bowel obstruction 13. History of severe protein calorie malnutrition 14. History of COVID-19 infection and pneumonia 15. Severe and sudden elevation in liver enzymes yesterday including AST ALT and alkaline phosphatase, today liver enzymes are improving this could be related to a common bile duct stone will continue to monitor 16. Sepsis as evidenced positive blood culture DVT prophylaxis Lovenox. GI prophylaxis Protonix Infectious disease service is following PICC line removed Continue IV antibiotics Patient will require home TPN
[2021-06-18] MEDS: MIRTAZAPINE 45 MG TABLET PO SCH (21:46)
[2021-06-19 00:17] LABS: Glucose,Whole Blood 113 mg/dL (75-99)
[2021-06-19] MEDS: HYDROmorphone 1 MG/ML 1 ML SYRINGE IVP PRN ×3 (01:08→13:25)
[2021-06-19] MEDS: LEVOTHYROXINE 100 MCG TAB PO SCH (05:58)
[2021-06-19] MEDS: BUTALB/APAP/CAFF 50-325-40MG TAB PO PRN ×2 (05:58→14:38)
[2021-06-19] MEDS: ALPRAZolam 0.25 MG TAB PO PRN ×2 (05:58→12:24)
[2021-06-19 06:16] LABS: Glucose,Whole Blood 109 mg/dL (75-99)
[2021-06-19 07:14] LABS: African American GFR (CKD) 43 (>60 ml/min/1.73 sqM); Anion Gap 6 mmol/L; Blood Urea Nitrogen 43 mg/dL (7-17); Carbon Dioxide 26 mmol/L (22-30); Chloride 103 mmol/L (98-107); Glucose 109 mg/dL (74-99); Magnesium 2.4 mg/dL (1.6-2.3); Non-African American GFR(CKD) 37 (>60 ml/min/1.73 sqM); Phosphorus 3.8 mg/dL (2.5-4.5); Potassium 5.2 mmol/L (3.5-5.1); Sodium 135 mmol/L (137-145)
[2021-06-19] MEDS: ENOXAPARIN 30 MG/0.3 ML SYRINGE SQ SCH (07:24)
[2021-06-19] MEDS: hydrOXYzine pamoate 25 MG CAP PO SCH ×2 (07:24→17:19)
[2021-06-19] MEDS: busPIRone HCl 10 MG TAB PO SCH (07:24)
[2021-06-19] MEDS: buPROPion XL 150 MG TAB.ER.24H PO SCH (07:25)
[2021-06-19] MEDS: ASPIRIN 81 MG PO SCH (07:26)
[2021-06-19] MEDS: PANTOPRAZOLE 40 MG TABLET PO SCH (07:26)
[2021-06-19] MEDS: buPROPion XL 300 MG TAB.ER.24H PO SCH (07:26)
[2021-06-19] MEDS: THIAMINE 100 MG TAB PO SCH (07:26)
[2021-06-19] MEDS: LORATADINE 10 MG TAB PO SCH (07:26)
[2021-06-19] MEDS: CEFEPIME 1 GM in SODIUM CHLORIDE 0.9% 50 ML IVPB SCH ×2 (07:30→17:09)
[2021-06-19 08:13] VITALS: RESP 18
[2021-06-19] MEDS: SYMBICORT 160-4.5 MCG INHALER INHALATION SCH (08:29)
--- NOTE | 2021-06-19 10:03 | P.PN ---
Subjective Patient is seen in follow-up for acute kidney injury on chronic kidney disease. Renal function fairly stable the last few days. Receives TPN every night. Also on IV fluids. Good urine output. No active complaints. Possible discharge home today. Vital signs are stable. General: The patient appeared well nourished and normally developed. HEENT: Head exam is unremarkable. LUNGS: Breath sounds decreased. HEART: Rate and Rhythm are regular. ABDOMEN: Soft, no distention EXTREMITITES: No edema. Objective - Vital Signs Vital signs: Vital Signs Temp 98.0 F 06/19/21 08:00 Pulse 78 06/19/21 08:00 Resp 18 06/19/21 08:00 BP 144/75 06/19/21 08:00 Pulse Ox 96 06/19/21 08:00 Intake & Output 06/18/21 06/19/21 06/19/21 18:59 06:59 18:59 Intake Total 1785 0 Output Total 200 250 Balance 1585 -250 Weight 42.3 kg 43.4 kg Intake: Intake, IV Titration 1075 Amount Cefepime 1 gm In Sodium 50 Chloride 0.9% 50 ml @ 12. 5 mls/hr IVPB Q12HR [facility] Rx#:[id number] Mvi, Adult No.4 with Vit 300 K 10 ml Trace (Conc-1Ml/ Dose) 1 ml Sodium Acetate 30 meq Magnesium Sulfate 1,000 mg Calcium Gluconate 1 gm In Amino Acids 5 %/Dextrose 20 % 1 ,000 ml @ 30 mls/hr IV . Q24H [facility] Rx#:[id number] Sodium Chloride 0.9% 1, 725 000 ml @ 50 mls/hr IV . Q20H [facility] Rx#:[id number] Oral 710 0 Output: Urine 200 250 Other: # Voids 1 - Labs CBC & Chem 7: 06/18/21 07:18 06/19/21 06:18 Labs: Abnormal Lab Results - Last 24 Hours (Table) 06/18/21 06/18/21 06/19/21 Range/Units 07:18 07:18 00:16 RBC 3.52 L (4.10-5.20) X 10*6/uL Hgb 9.0 L (12.0-15.0) g/dL Hct 30.8 L (37.2-46.3) % MCH 25.6 L (27.0-32.0) pg MCHC 29.2 L (32.0-37.0) g/dL RDW 18.9 H (11.5-14.5) % Plt Count 552 H (140-440) X 10*3/uL Immature Gran # 0.06 H (0.00-0.04) X 10*3/uL Eosinophils # 0.53 H (0.04-0.35) X 10*3/uL Basophils # 0.11 H (0.00-0.10) X 10*3/uL Sodium 133 L (135-145) mmol/L Potassium (3.5-5.1) mmol/L BUN 33.8 H (9.0-27.0) mg/dL Creatinine (0.52-1.04) mg/dL Est GFR (CKD-EPI)AfAm 39.4 L (60.0-200.0) Est GFR (CKD-EPI)NonAf 34.0 L (60.0-200.0) BUN/Creatinine Ratio 22.53 H (12.00-20.00) Ratio Glucose (74-99) mg/dL POC Glucose (mg/dL) 113 H (75-99) mg/dL Magnesium (1.6-2.3) mg/dL Total Bilirubin <0.15 L (0.30-1.20) mg/dL AST 42 H (13-35) U/L ALT 101 H (8-44) U/L Alkaline Phosphatase 345 H (41-126) U/L Albumin/Globulin Ratio 1.33 L (1.60-3.17) g/dL 06/19/21 06/19/21 Range/Units 06:15 06:18 RBC (4.10-5.20) X 10*6/uL Hgb (12.0-15.0) g/dL Hct (37.2-46.3) % MCH (27.0-32.0) pg MCHC (32.0-37.0) g/dL RDW (11.5-14.5) % Plt Count (140-440) X 10*3/uL Immature Gran # (0.00-0.04) X 10*3/uL Eosinophils # (0.04-0.35) X 10*3/uL Basophils # (0.00-0.10) X 10*3/uL Sodium 135 L (135-145) mmol/L Potassium 5.2 H (3.5-5.1) mmol/L BUN 43 H (9.0-27.0) mg/dL Creatinine 1.40 H (0.52-1.04) mg/dL Est GFR (CKD-EPI)AfAm (60.0-200.0) Est GFR (CKD-EPI)NonAf (60.0-200.0) BUN/Creatinine Ratio (12.00-20.00) Ratio Glucose 109 H (74-99) mg/dL POC Glucose (mg/dL) 109 H (75-99) mg/dL Magnesium 2.4 H (1.6-2.3) mg/dL Total Bilirubin (0.30-1.20) mg/dL AST (13-35) U/L ALT (8-44) U/L Alkaline Phosphatase (41-126) U/L Albumin/Globulin Ratio (1.60-3.17) g/dL Microbiology - Last 24 Hours (Table) 06/13/21 06:00 Blood Culture - Final Blood No Growth after 144 hours 06/14/21 06:37 Blood Culture - Preliminary Blood No Growth after 120 hours 06/15/21 06:07 Blood Culture - Preliminary Blood No Growth after 96 hours 06/13/21 14:31 Blood Culture - Preliminary Blood No Growth after 120 hours Assessment and Plan Plan: Assessment: 1. Acute kidney injury mostly prerenal secondary to sepsis. Creatinine was 2.1 and on admission - 1.4 today. 2. Chronic kidney disease stage IIIB/4 with baseline creatinine now near 1.3- 1.5. However it was closer to 2 in the past. 3. Severe sepsis secondary to UTI and bacteremia on IV antibiotics. 4. History of bowel obstruction. Patient receives TPN every night. Plan: Hep-Lock IV fluids. Receives TPN every night. Resume oral Lasix 20 mg once daily. This will help with the blood pressure as well as the mild hyperkalemia. Avoid nephrotoxins. Follow up outpatient 1-2 weeks post discharge. Repeat BMP and magnesium level 2-3 days postdischarge
[2021-06-19] MEDS ORDERED: FUROSEMIDE 20 MG TAB PO SCH (10:15)
--- NOTE | 2021-06-19 10:39 | P.PN ---
Subjective Progress Note Date: 06/18/21 Principal diagnosis: Sepsis Patient is a 76-year-old female with multiple comorbidities admitted to the hospital with weakness patient also have an episode of sepsis with fever and elevated white count and did have a jump in the liver enzymes with a question of possible possible stones and did have a positive UA with Enterobacter. Patient blood culture positive for staph epi and gram-negative and the patient PICC line was discontinued as of 06/13/2021 On today's evaluation that is 06/18/2021 the patient denies having any fever or any chills, the patient denies having any chest pain shortness of breath or cough patient abdominal pain has decreased in intensity no nausea no vomiting and no diarrhea Objective - Vital Signs Vital signs: Vital Signs Temp 97.4 F L 06/18/21 08:00 Pulse 76 06/18/21 08:00 Resp 18 06/18/21 08:00 BP 126/36 06/18/21 08:00 Pulse Ox 99 06/18/21 08:00 Intake & Output 06/17/21 06/18/21 06/18/21 18:59 06:59 18:59 Weight 40.823 kg Other: Voiding Method Toilet # Voids 3 2 1 - Exam GENERAL DESCRIPTION: An elderly female lying in bed in no distress RESPIRATORY SYSTEM: Unlabored breathing , decreased breath sounds at bases HEART: S1 S2 regular rate and rhythm , ABDOMEN: Soft , no tenderness EXTREMITIES: No edema feet - Labs CBC & Chem 7: 06/18/21 07:18 06/19/21 06:18 Labs: Microbiology - Last 24 Hours (Table) 06/13/21 06:00 Blood Culture - Preliminary Blood No Growth after 120 hours 06/14/21 06:37 Blood Culture - Preliminary Blood No Growth after 96 hours 06/15/21 06:07 Blood Culture - Preliminary Blood No Growth after 72 hours 06/13/21 14:31 Blood Culture - Preliminary Blood No Growth after 96 hours 06/11/21 11:02 Blood Culture - Final Blood No Growth after 144 hours Assessment and Plan (1) Sepsis Current Visit: Yes Status: Acute Code(s): A41.9 - SEPSIS, UNSPECIFIED ORGANISM SNOMED Code(s): 51692584 Plan: 1-Patient presented to hospital with weakness in this patient now with evidence of sepsis with a fever elevated white count source could be urinary as the patient had mildly positive UA and concern for possible cholangitis with elevated liver enzymes and also concern for a PICC line infection, which has been discontinued, the pt blood cultures finalized as staph epi as well as gram-negative which has been finalized with Pseudomonas that is resistant to meropenem but sensitive to Fortaz, patient to continue with daptomycin and cefepime repeat blood culture have been negative so far, the patient did got a PICC and continue with daptomycin and cefepime to finish a two-week course of therapy Time with Patient: Less than 30
--- NOTE | 2021-06-19 10:59 | P.DS ---
Providers Date of admission: 06/08/21 11:24 Expected date of discharge: 06/19/21 Attending physician: Palmer Desir Consults: 06/07/21 10:22 Consult Physician Routine Consulting Provider: Garry Sanchez Consult Reason/Comments: possible pneumonia history of recurrent pneumonia Do you want consulting provider notified?: Yes 06/09/21 10:29 Consult Physician Routine Consulting Provider: Jas Gregorio Consult Reason/Comments: UTI elevated temp and wbc Do you want consulting provider notified?: Yes 06/17/21 07:58 Consult Physician Routine Consulting Provider: Abisai Carter Consult Reason/Comments: Picc line placement what arm? GFR Do you want consulting provider notified?: Yes Primary care physician: Ale Eli Hospital Course: Discharge diagnosis 1. Generalized weakness and dehydration 2. Acute kidney injury. Improving 3. Urinary tract infection. Patient started on Rocephin urine culture ordered 4. History of recurrent aspiration pneumonia maintained on TPN 5. History of hypothyroidism. TSH elevated at 13.9 will increase Synthroid dose 8. History of immunoglobulin disorder 9. History of chronic pain with history of laminectomy 10. History of degenerative stress arthritis 11. History of pancreatitis 12. History of bowel obstruction 13. History of severe protein calorie malnutrition 14. History of COVID-19 infection and pneumonia 15. Severe and sudden elevation in liver enzymes yesterday including AST ALT and alkaline phosphatase, today liver enzymes are improving this could be related to a common bile duct stone will continue to monitor 16. Sepsis as evidenced positive blood culture Hospital Course This is a 76-year-old female well-known to our services. Patient presented with general complaints of weakness and nausea. Patient has a past medical history of chronic TPN use due to multiple stomach surgeries managed 80 round, asthma, COPD, thyroid disorder, chronic pain, anxiety depression and panic disorder. Patient reports she has been not feeling well for the past few days denies fever. Reports some nausea. Patient also reports headache which is chronic for her. KUB x-ray completed showing nonspecific bowel gas pattern without radiographic evidence for acute process. Chest x-ray was completed showing left mid lung disease which are similar to immediate prior to visualize dating back 07/07/2020 right mid and upper lobe airspace OKC similar to prior dating superimposed pneumonia is not entirely excluded. Patient was recently admitted and treated after sergio COVID-19 and pneumonia. Patient's creatinine on admission 2.19 bun 44. White blood cell but slightly elevated 11.8. COVID-19 negative. UA showing small amount of leukocyte Estrace urine culture ordered. At this time patient is resting comfortably in bed requesting pain medication for her chronic pain and headache. Current vitals temp 97.8, pulse rate 86, respiratory rate 18 blood pressure 124/73 oxygen saturation 96 on room air On 06/08/2021 patient was seen and examined on the medical floor she is alert and oriented 3 in no apparent distress there is no fever or chills no headache or dizziness no chest pain no shortness of breath no cough no nausea or vomiting no abdominal pain no diarrhea no blood in the stools no burning with urination no frequency or urgency no hematuria . Vital exam reveals a temperature of 98.1 pulse 80 respiration 18 blood pressure 150/77 pulse ox 99% on room air laboratory data reveals a white blood count of 7.7 hemoglobin 9.2 platelet count 458 BUN 23 creatinine 1.4 On 06/09/2021 patient is alert and oriented 3. Patient complaining of headache. Patient had temperature yesterday 101.2 patient remains on Rocephin for urinary tract infection. Pulmonary services are following. Patient is complaining of mild flank pain. Patient denies chest pain. Patient complaining of occasional nausea. Patient denies any urinary burning or frequency. On 06/10/2021 patient was seen and examined on the medical floor she is alert and oriented 3 in no apparent distress she states she is feeling somewhat better today, during the weekend patient had sudden severe elevation in her liver enzymes including AST ALT and alkaline phosphatase this was accompanied by elevated temperatures nausea and vomiting symptoms improved gradually, today liver enzymes are down. Most likely patient passed a stone through the common bile duct and had a biliary colic with elevated liver enzymes. At this time temperature had come down liver enzymes are coming down patient is maintained on IV antibiotics and is followed by infectious disease On 06/11/2021 patient was seen and examined on the medical floor she is alert and oriented 3 in no apparent distress there is no fever or chills no headache or dizziness no chest pain no shortness of breath no cough no nausea or vomiting no abdominal pain no diarrhea no blood in the stools no burning with urination no frequency or urgency and no hematuria On 06/12/2021 patient is alert and oriented 3. Patient reports that she feels much improved. AST 59, ALT 180 and alkaline phosphatase 257. Patient has remained afebrile. Patient remains on IV Maxipime. Infectious disease services are following. Patient denies chest pain or shortness of breath. Patient denies nausea vomiting or diarrhea. Patient denies any urinary burning or frequency. On 06/13/2021 patient was seen and examined on the medical floor she is alert and oriented 3 in no apparent distress there is no fever or chills no headache or dizziness no chest pain no shortness of breath no cough no nausea or vomiting no abdominal pain no diarrhea no blood in the stools no burning with urination no frequency or urgency and no hematuria. Potassium level was elevated yesterday at 5.3 potassium supplement discontinued IV fluid increased to 100 mL normal saline per hour patient is still maintained on IV antibiotics Maxipime and Cubicin and followed by infectious disease. On 06/14/2021 patient is alert and oriented 3. Potassium 4.0. patient patient remains on IV antibiotics. White blood cell 9.15. PICC line has been removed. Current temp 97.8, heart rate 84, respiratory rate 16, blood pressure 117/62 patient satting 98% on room air. Per ID patient will likely need PICC line placement once clearance of bacteremia. On 06/15/2021 patient is alert and oriented 3. Potassium increasing to 5.6 creatinine 1.63 and bun 45 will resume normal saline fluid at 100. Patient remains on cefepime and azithromycin awaiting for blood cultures plans for possible PICC line placement on Thursday. Patient is complaining of generalized pain. Patient is maintained on IV Dilaudid when necessary plus home pain medication at this time. Patient denies chest pain. Patient denies nausea vomiting or diarrhea. Patient denies any urinary burning or frequency. On 06/16/2021 patient was seen and examined on the medical floor she is alert and oriented 3 in no apparent distress there is no fever or chills no headache or dizziness no chest pain no shortness of breath no cough no nausea or vomiting pain no diarrhea and no urinary symptoms. At this time we are waiting for clearance from Dr. Gregorio infectious disease to replace the PICC line so patient can be restarted on TPN On 06/17 2021 patient was seen and examined on the medical floor there is no fever or chills no headache or dizziness no chest pain no shortness of breath no cough no nausea or vomiting no abdominal pain no diarrhea and no urinary symptoms. PICC line was reinserted today and patient will be restarted on TPN tonight On 06/18/2020 patient was seen and examined she is alert and oriented 3 in no apparent distress there is no fever or chills no headache or dizziness no chest pain no shortness of breath no cough no nausea or vomiting no abdominal pain no diarrhea and no urinary symptoms she was started on TPN yesterday and is tolerating well, will monitor labs possible discharge to home tomorrow On 06/19/2021 patient is alert and oriented 3. Discussed case with infectious disease services. Antibiotics prescription given to case management per ID. PICC line in place. Patient to follow-up with nephrology services outpatient. At this time patient denies chest pain or shortness breath. Patient denies nausea vomiting or diarrhea. Patient denies any urinary burning or frequency Patient Condition at Discharge: Stable Plan - Discharge Summary Discharge Rx Participant: No New Discharge Prescriptions: New Levothyroxine Sodium [Synthroid] 100 mcg PO DAILY@0630 30 Days #30 tab Continue Ferrous Sulfate [Iron (65 MG Elemental)] 325 mg PO DAILY@1200 calcitrioL [Calcitriol] 1 mcg PO MOWEFR busPIRone HCL [Buspar] 30 mg PO BID Pantoprazole Sodium [Protonix] 40 mg PO BID 30 Days #60 tablet.dr Hilario/APAP/Caff 50-325-40Mg [Fioricet 50-325-40] 1 tab PO BID PRN PRN Reason: Migraine Headache buPROPion XL [Wellbutrin XL] 150 mg PO DAILY fentaNYL 75MCG/HR PATCH [Duragesic 75MCG/HR] 1 patch TRANSDERM Q72H 3 Days #3 patch Furosemide [Lasix] 20 mg PO DAILY #6 tab Mirtazapine [Remeron] 45 mg PO HS Albuterol Sulfate [Albuterol Sulfate Hfa] 2 puff INHALATION RT-Q6H PRN PRN Reason: Shortness Of Breath oxyCODONE-APAP 7.5-325MG [Percocet 7.5-325 mg] 1 tab PO BID buPROPion XL [Wellbutrin XL] 300 mg PO DAILY Tpn 1 dose IV DAILY@1900 Budesonide/Formoterol Fumarate [Symbicort 160-4.5 Mcg Inhaler] 2 puff INHALATION RT-BID Loratadine [Claritin] 10 mg PO DAILY Thiamine [Vitamin B-1] 100 mg PO DAILY SUMAtriptan succinate [Imitrex] 50 mg PO BID PRN PRN Reason: Migraine Headache Aspirin EC [Ecotrin Low Dose] 81 mg PO DAILY hydrOXYzine pamoate [Vistaril] 50 mg PO TID Discontinued Levothyroxine Sodium [Synthroid] 88 mcg PO DAILY Potassium Chloride ER [K-Dur 10] 30 meq PO DAILY@1200 Discharge Medication List Ferrous Sulfate [Iron (65 MG Elemental)] 325 mg PO DAILY@1200 11/06/15 [History] calcitrioL [Calcitriol] 1 mcg PO MOWEFR 06/07/19 [History] busPIRone HCL [Buspar] 30 mg PO BID 04/14/20 [History] Pantoprazole Sodium [Protonix] 40 mg PO BID 30 Days #60 tablet. 04/27/20 [Rx] Butalb/APAP/Caff 50-325-40Mg [Fioricet 50-325-40] 1 tab PO BID PRN 06/30/20 [History] buPROPion XL [Wellbutrin XL] 150 mg PO DAILY 11/04/20 [History] Furosemide [Lasix] 20 mg PO DAILY #6 tab 12/13/20 [Rx] fentaNYL 75MCG/HR PATCH [Duragesic 75MCG/HR] 1 patch TRANSDERM Q72H 3 Days #3 patch 12/13/20 [Rx] Tpn 1 dose IV DAILY@1900 02/20/21 [History] buPROPion XL [Wellbutrin XL] 300 mg PO DAILY 02/20/21 [History] Albuterol Sulfate [Albuterol Sulfate Hfa] 2 puff INHALATION RT-Q6H PRN 04/07/21 [History] Budesonide/Formoterol Fumarate [Symbicort 160-4.5 Mcg Inhaler] 2 puff INHALATION RT-BID 04/07/21 [History] Loratadine [Claritin] 10 mg PO DAILY 04/07/21 [History] Mirtazapine [Remeron] 45 mg PO HS 04/07/21 [History] SUMAtriptan succinate [Imitrex] 50 mg PO BID PRN 05/04/21 [History] Thiamine [Vitamin B-1] 100 mg PO DAILY 05/04/21 [History] Aspirin EC [Ecotrin Low Dose] 81 mg PO DAILY 05/12/21 [History] hydrOXYzine pamoate [Vistaril] 50 mg PO TID 06/06/21 [History] oxyCODONE-APAP 7.5-325MG [Percocet 7.5-325 mg] 1 tab PO BID 06/06/21 [History] Levothyroxine Sodium [Synthroid] 100 mcg PO DAILY@0630 30 Days #30 tab 06/19/21 [Rx] Follow up Appointment(s)/Referral(s): Ale Eli MD [Primary Care Provider] - 1-2 days [facility], [NON-STAFF] - 1-2 Days Abisai Carter DO [STAFF PHYSICIAN] - 1 Week Activity/Diet/Wound Care/Special Instructions: [facility] ([phone]) can be reached if any questions regarding your TPN. When patient is discharged please call Rosario (legal Guardian) [phone]. She will pick patient up. She can transport ANY DAY EXCEPT SATURDAYS Antibiotic scripts given to rn case manager per infectious disease Discharge Disposition: HOME WITH HOME HEALTH SERVICES
[2021-06-19] MEDS: oxyCODONE-APAP 7.5-325MG 1 EACH TAB PO SCH (11:34)
[2021-06-19 12:26] LABS: Glucose,Whole Blood 104 mg/dL (75-99)
[2021-06-19] MEDS: FERROUS SULFATE 325 MG TAB PO SCH (13:31)
[2021-06-19 14:46] VITALS: BP 116/65; PULSE 90; TEMP 98.3
[2021-06-19] MEDS: CALCIUM GLUCONATE IV SCH ×6 (14:47)
[2021-06-19] MEDS: [UNRECOGNIZED DRUG - OTHER] IV SCH ×6 (14:47)
[2021-06-19] MEDS: SODIUM ACETATE IV SCH ×6 (14:47)
[2021-06-19] MEDS: MAGNESIUM SULFATE IV SCH ×6 (14:47)
[2021-06-19] MEDS: ONDANSETRON 4 MG/2 ML VIAL IVP PRN (15:24)
--- NOTE | 2021-06-26 21:56 | P.PN ---
Subjective Progress Note Date: 06/19/21 Principal diagnosis: Sepsis Patient is a 76-year-old female with multiple comorbidities admitted to the hospital with weakness patient also have an episode of sepsis with fever and elevated white count and did have a jump in the liver enzymes with a question of possible possible stones and did have a positive UA with Enterobacter. Patient blood culture positive for staph epi and gram-negative and the patient PICC line was discontinued as of 06/13/2021 On today's evaluation that is 06/19/2021 the patient remains to be afebrile, the patient denies having any chest pain shortness of breath or cough patient abdominal pain has decreased in intensity no nausea no vomiting and no diarrhea Objective - Vital Signs Vital signs: Vital Signs Temp 98.0 F 06/19/21 08:00 Pulse 78 06/19/21 08:00 Resp 18 06/19/21 08:00 BP 144/75 06/19/21 08:00 Pulse Ox 96 06/19/21 08:00 Intake & Output 06/18/21 06/19/21 06/19/21 18:59 06:59 18:59 Intake Total 1785 0 Output Total 200 250 Balance 1585 -250 Weight 42.3 kg 43.4 kg Intake: Intake, IV Titration 1075 Amount Cefepime 1 gm In Sodium 50 Chloride 0.9% 50 ml @ 12. 5 mls/hr IVPB Q12HR [facility] Rx#:[id number] Mvi, Adult No.4 with Vit 300 K 10 ml Trace (Conc-1Ml/ Dose) 1 ml Sodium Acetate 30 meq Magnesium Sulfate 1,000 mg Calcium Gluconate 1 gm In Amino Acids 5 %/Dextrose 20 % 1 ,000 ml @ 30 mls/hr IV . Q24H [facility] Rx#:[id number] Sodium Chloride 0.9% 1, 725 000 ml @ 50 mls/hr IV . Q20H [facility] Rx#:[id number] Oral 710 0 Output: Urine 200 250 Other: # Voids 1 - Exam GENERAL DESCRIPTION: An elderly female lying in bed in no distress RESPIRATORY SYSTEM: Unlabored breathing , decreased breath sounds at bases HEART: S1 S2 regular rate and rhythm , ABDOMEN: Soft , no tenderness EXTREMITIES: No edema feet - Labs CBC & Chem 7: 06/18/21 07:18 06/19/21 06:18 Labs: Abnormal Lab Results - Last 24 Hours (Table) 06/18/21 06/18/21 06/19/21 Range/Units 07:18 07:18 00:16 RBC 3.52 L (4.10-5.20) X 10*6/uL Hgb 9.0 L (12.0-15.0) g/dL Hct 30.8 L (37.2-46.3) % MCH 25.6 L (27.0-32.0) pg MCHC 29.2 L (32.0-37.0) g/dL RDW 18.9 H (11.5-14.5) % Plt Count 552 H (140-440) X 10*3/uL Immature Gran # 0.06 H (0.00-0.04) X 10*3/uL Eosinophils # 0.53 H (0.04-0.35) X 10*3/uL Basophils # 0.11 H (0.00-0.10) X 10*3/uL Sodium 133 L (135-145) mmol/L Potassium (3.5-5.1) mmol/L BUN 33.8 H (9.0-27.0) mg/dL Creatinine (0.52-1.04) mg/dL Est GFR (CKD-EPI)AfAm 39.4 L (60.0-200.0) Est GFR (CKD-EPI)NonAf 34.0 L (60.0-200.0) BUN/Creatinine Ratio 22.53 H (12.00-20.00) Ratio Glucose (74-99) mg/dL POC Glucose (mg/dL) 113 H (75-99) mg/dL Magnesium (1.6-2.3) mg/dL Total Bilirubin <0.15 L (0.30-1.20) mg/dL AST 42 H (13-35) U/L ALT 101 H (8-44) U/L Alkaline Phosphatase 345 H (41-126) U/L Albumin/Globulin Ratio 1.33 L (1.60-3.17) g/dL 06/19/21 06/19/21 Range/Units 06:15 06:18 RBC (4.10-5.20) X 10*6/uL Hgb (12.0-15.0) g/dL Hct (37.2-46.3) % MCH (27.0-32.0) pg MCHC (32.0-37.0) g/dL RDW (11.5-14.5) % Plt Count (140-440) X 10*3/uL Immature Gran # (0.00-0.04) X 10*3/uL Eosinophils # (0.04-0.35) X 10*3/uL Basophils # (0.00-0.10) X 10*3/uL Sodium 135 L (135-145) mmol/L Potassium 5.2 H (3.5-5.1) mmol/L BUN 43 H (9.0-27.0) mg/dL Creatinine 1.40 H (0.52-1.04) mg/dL Est GFR (CKD-EPI)AfAm (60.0-200.0) Est GFR (CKD-EPI)NonAf (60.0-200.0) BUN/Creatinine Ratio (12.00-20.00) Ratio Glucose 109 H (74-99) mg/dL POC Glucose (mg/dL) 109 H (75-99) mg/dL Magnesium 2.4 H (1.6-2.3) mg/dL Total Bilirubin (0.30-1.20) mg/dL AST (13-35) U/L ALT (8-44) U/L Alkaline Phosphatase (41-126) U/L Albumin/Globulin Ratio (1.60-3.17) g/dL Microbiology - Last 24 Hours (Table) 06/13/21 06:00 Blood Culture - Final Blood No Growth after 144 hours 06/14/21 06:37 Blood Culture - Preliminary Blood No Growth after 120 hours 06/15/21 06:07 Blood Culture - Preliminary Blood No Growth after 96 hours 06/13/21 14:31 Blood Culture - Preliminary Blood No Growth after 120 hours Assessment and Plan (1) Sepsis Status: Acute Code(s): A41.9 - SEPSIS, UNSPECIFIED ORGANISM SNOMED Code(s): 34118459 Plan: 1-Patient presented to hospital with weakness in this patient now with evidence of sepsis with a fever elevated white count source could be urinary as the patient had mildly positive UA and concern for possible cholangitis with elevated liver enzymes and also concern for a PICC line infection, which has been discontinued, the pt blood cultures finalized as staph epi and Pseudomonas that is resistant to meropenem but sensitive to Fortaz, patient to continue with daptomycin and cefepime repeat blood culture have been negative so far, the patient did got a PICC and continue with daptomycin and cefepime to finish a two-week course of therapy and close outpatient follow-up Time with Patient: Less than 30
== END 2021-06-19 18:12 | disposition home health service (06) | DRG 314 ==
LOC: EC 18:40 → 6NMEDSUR 06-07 03:07 → 4SSUR 06-07 03:47 → 6NMEDSUR 06-07 04:06 → OBSVTOIN 06-08 11:24
PROVIDERS: ADMIT Internal Medicine; ATTEND Internal Medicine
PROC: 3E0436Z Introduction of Nutritional Substance into Central Vein, Percutaneous Approach (ICD-10-PCS; 2021-06-08)
PROC: 02HV33Z Insertion of Infusion Device into Superior Vena Cava, Percutaneous Approach (ICD-10-PCS; principal; 2021-06-17 12:45)
DX: T80.211A Bloodstream infection due to central venous catheter, initial encounter (principal); A41.59 Other Gram-negative sepsis; E43 Unspecified severe protein-calorie malnutrition; J69.0 Pneumonitis due to inhalation of food and vomit; R65.20 Severe sepsis without septic shock; N17.9 Acute kidney failure, unspecified; N18.4 Chronic kidney disease, stage 4 (severe); N39.0 Urinary tract infection, site not specified; R64 Cachexia; Z68.1 Body mass index [BMI] 19.9 or less, adult; E86.0 Dehydration; R62.7 Adult failure to thrive; J45.909 Unspecified asthma, uncomplicated; Z20.822 Contact with and (suspected) exposure to COVID-19; Z88.6 Allergy status to analgesic agent; Z88.4 Allergy status to anesthetic agent; Z91.048 Other nonmedicinal substance allergy status; E03.9 Hypothyroidism, unspecified; F32.A Depression, unspecified; F41.0 Panic disorder [episodic paroxysmal anxiety]; G89.29 Other chronic pain; J44.9 Chronic obstructive pulmonary disease, unspecified; K21.9 Gastro-esophageal reflux disease without esophagitis; Z87.11 Personal history of peptic ulcer disease; Z90.3 Acquired absence of stomach [part of]; N26.1 Atrophy of kidney (terminal); Z79.51 Long term (current) use of inhaled steroids; Z79.82 Long term (current) use of aspirin; Z79.890 Hormone replacement therapy; R51.9 Headache, unspecified; K59.00 Constipation, unspecified; R41.3 Other amnesia; M19.90 Unspecified osteoarthritis, unspecified site; Z79.899 Other long term (current) drug therapy; Z80.41 Family history of malignant neoplasm of ovary; Z80.51 Family history of malignant neoplasm of kidney; Z82.49 Family history of ischemic heart disease and other diseases of the circulatory system; Z86.14 Personal history of Methicillin resistant Staphylococcus aureus infection; Z86.16 Personal history of COVID-19; Z86.73 Personal history of transient ischemic attack (TIA), and cerebral infarction without residual deficits; Z87.01 Personal history of pneumonia (recurrent); Z90.710 Acquired absence of both cervix and uterus; Z96.642 Presence of left artificial hip joint; Z98.890 Other specified postprocedural states; Z83.6 Family history of other diseases of the respiratory system; Z88.5 Allergy status to narcotic agent; Z88.8 Allergy status to other drugs, medicaments and biological substances; Z80.52 Family history of malignant neoplasm of bladder
CPT/HCPCS: 36415; 36573; 71045; 71046; 74018; 76705; 80048; 80053; 81001; 82330; 83605; 83735; 84100; 84443; 84478; 84484; 85025; 85610; 85730; 87040; 87070; 87077; 87086; 87186; 87635; 93005; 94640; 94760; 96361; 96374; 99285

== ENCOUNTER 2021-06-26 18:40 | Inpatient (IN) | payer MEDICARE, OTHER ==
[2021-06-26] MEDS ORDERED: SODIUM CHLORIDE 0.9% 500 ML 500 ML IV STA (19:17)
--- NOTE | 2021-06-26 19:36 | ED ---
General Adult HPI - General Chief complaint: Altered Mental Status Stated complaint: lab recheck Time Seen by Provider: 06/26/21 19:13 Source: patient, RN notes reviewed Mode of arrival: wheelchair - History of Present Illness Initial comments: This is a pleasant 76-year-old female with multiple medical issues to include need for TPN nutrition. She presents again today stating that she had follow-up blood work done after being admitted to the hospital and discharged on June 19. It's the follow-up blood work shows an elevated white blood cell count and worsening renal function values. She states she was called by her doctor at [facility] and told to come to the ER to get admitted. Patient was admitted here on June 08 and discharged on June 19. She was admitted for general weakness, dehydration, urinary tract infection, and acute kidney injury. Patient was treated with antibiotics as an inpatient was sent home on 2 antibiotics. Patient has a history of pancreatitis, history of bowel obstruction, history of malnutrition. Patient ended up having positive blood cultures during her admission here. Patient presenting today stating that she feels generally weak, mildly confused and is having some discomfort in her bilateral rib area. Increased cough since being discharged. Nonsmoker. No alcohol or drug abuse. Patient states the cough is productive for a mild amount of sputum. No hemoptysis. Review of systems positive for fatigue, No headache, no fever or chills, no changes in vision or hearing, no sore throat or difficulty with speech, no neck pain, no abdominal pain, no nausea or vomiting, no changes in urination or bowel movements, no numbness or tingling, no extremity pain, no skin rashes or lesions. - Related Data Home Medications Medication Instructions Recorded Confirmed Ferrous Sulfate [Iron (65 MG 325 mg PO DAILY@1200 11/06/15 06/26/21 Elemental)] calcitrioL [Calcitriol] 1 mcg PO MOWEFR 06/07/19 06/26/21 busPIRone HCL [Buspar] 30 mg PO BID 04/14/20 06/26/21 Butalb/APAP/Caff 50-325-40Mg 1 tab PO BID PRN 06/30/20 06/26/21 [Fioricet 50-325-40] buPROPion XL [Wellbutrin XL] 150 mg PO DAILY 11/04/20 06/26/21 Tpn 1 dose IV DAILY@1900 02/20/21 06/26/21 buPROPion XL [Wellbutrin XL] 300 mg PO DAILY 02/20/21 06/26/21 Albuterol Sulfate [Albuterol 2 puff INHALATION RT-Q6H PRN 04/07/21 06/26/21 Sulfate Hfa] Budesonide/Formoterol Fumarate 2 puff INHALATION RT-BID 04/07/21 06/26/21 [Symbicort 160-4.5 Mcg Inhaler] Loratadine [Claritin] 10 mg PO DAILY 04/07/21 06/26/21 Mirtazapine [Remeron] 45 mg PO HS 04/07/21 06/26/21 SUMAtriptan succinate [Imitrex] 50 mg PO BID PRN 05/04/21 06/26/21 Thiamine [Vitamin B-1] 100 mg PO DAILY 05/04/21 06/26/21 Aspirin EC [Ecotrin Low Dose] 81 mg PO DAILY 05/12/21 06/26/21 hydrOXYzine pamoate [Vistaril] 50 mg PO TID 06/06/21 06/26/21 oxyCODONE-APAP 7.5-325MG [Percocet 1 tab PO BID 06/06/21 06/26/21 7.5-325 mg] Famotidine [Pepcid] 20 mg PO DAILY PRN 06/26/21 06/26/21 Previous Rx's Medication Instructions Recorded Pantoprazole Sodium [Protonix] 40 mg PO BID 30 Days #60 tablet. 04/27/20 Furosemide [Lasix] 20 mg PO DAILY #6 tab 12/13/20 fentaNYL 75MCG/HR PATCH [Duragesic 1 patch TRANSDERM Q72H 3 Days #3 12/13/20 75MCG/HR] patch Levothyroxine Sodium [Synthroid] 100 mcg PO DAILY@0630 30 Days #30 06/19/21 tab Allergies Allergy/AdvReac Type Severity Reaction Status Date / Time mold Allergy Itching Verified 06/26/21 20:25 denosumab [From Prolia] AdvReac SEVERE Verified 06/26/21 20:25 CALCIUM LOSS morphine AdvReac Confusion Verified 06/26/21 20:25 DUST Allergy Itching Uncoded 06/26/21 20:25 Review of Systems ROS Statement: Those systems with pertinent positive or pertinent negative responses have been documented in the HPI. ROS Other: All systems not noted in ROS Statement are negative. Past Medical History Past Medical History: Asthma, COPD, CVA/TIA, GERD/Reflux, Memory Impairment, Osteoarthritis (OA), Pneumonia, Renal Disease, Respiratory Disorder, Thyroid Disorder Additional Past Medical History / Comment(s): Aspiration, pneumonias, .2021 covid pneumonia, protein calorie malnutrition, pt is on TPN/ manage thru [facility], chronic anemia, gastric ulcers/PUD, pancreatitis, bowel obstruction/surgery, constipation, CKD stage IV, TIA, chronic migraines, chronic back/cervical pain/spinal stenosis, hypothyroid, hyponatremia. History of Any Multi-Drug Resistant Organisms: Other MDRO Past Surgical History: Back Surgery, Bowel Resection, Hysterectomy, Joint Repl acement Additional Past Surgical History / Comment(s): LOWER BACK SURGERY lamenectomy/discetomy then had a revison of that sx. 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, nasal sx d/t broken nose, colonoscopy/egd, PAIN CLINIC PROCEDURES, PORT A CATH INSERTION, LT ADEOLA Past Anesthesia/Blood Transfusion Reactions: No Reported Reaction Additional Past Anesthesia/Blood Transfusion Reaction / Comment(s): PT RECIEVED BLOOD TRANSFUSIONS AFTER STOMACH SURGERY Past Psychological History: Anxiety, Depression, Panic Disorder Smoking Status: Never smoker Past Alcohol Use History: None Reported Past Drug Use History: None Reported - Past Family History Father Family Medical History: Cancer, Coronary Artery Disease (CAD) Additional Family Medical History / Comment(s): FATHER HAD BLADDER AND KIDNEY CANCER. FATHER HAD TB WHEN HE WAS A CHILD .FATHER AT AGE 87. Mother Family Medical History: Cancer Additional Family Medical History / Comment(s): MOTHER AT AGE 58 OF OVARIAN CANCER. General Exam - General Exam Comments Initial Comments: This is a cachectic appearing 76-year-old female who is appearing in no acute distress. Vital signs are reviewed. Patient does not appear to be ill or toxic. Capillary refill is 3 seconds. No mottling. Cranial nerves II through XII are grossly intact. Patient is alert and oriented 4. General appearance: alert, in no apparent distress Head exam: Present: atraumatic, normocephalic, normal inspection Eye exam: Present: normal appearance, PERRL, EOMI. Absent: scleral icterus, conjunctival injection, periorbital swelling ENT exam: Present: normal exam, normal oropharynx, mucous membranes moist, TM's normal bilaterally, normal external ear exam Neck exam: Present: normal inspection. Absent: tenderness, meningismus, lymphadenopathy Respiratory exam: Present: wheezes, rhonchi, other (Mild bilateral/scattered wheezing and rhonchi). Absent: respiratory distress, rales, stridor Cardiovascular Exam: Present: regular rate, normal rhythm, normal heart sounds. Absent: systolic murmur, diastolic murmur, rubs, gallop, clicks GI/Abdominal exam: Present: soft, normal bowel sounds. Absent: distended, tenderness, guarding, rebound, rigid Extremities exam: Present: normal inspection, full ROM, other (Capillary refill 3 seconds. No erythema. No evidence of soft tissue infection). Absent: tenderness, pedal edema, joint swelling, calf tenderness Back exam: Present: normal inspection Neurological exam: Present: alert, oriented X3, CN II-XII intact, normal gait. Absent: altered, motor sensory deficit Psychiatric exam: Present: normal affect, normal mood Skin exam: Present: warm, dry, intact, normal color. Absent: rash Course Vital Signs 06/26/21 21:24 Temperature 98.3 F Pulse Rate 95 Respiratory 22 Rate Blood Pressure 135/89 O2 Sat by Pulse 100 Oximetry - Reevaluation(s) Reevaluation #1: 06/26/21 20:50 Medical record is reviewed Symptoms are--essentially unchanged, in fact, patient now complaining of nausea and headache. Patient is informed of results and questions answered Patient in no distress Patient's white blood count is just over 11,000. Patient does have evidence of worsening renal function. 06/26/21 20:53 Reevaluation #2: 06/26/21 21:55 Medical record is reviewed Symptoms are worsening as the patient is complaining of her chronic pain. Hemodynamically stable Patient is informed of results and questions answered Patient in no distress EKG Findings - EKG Comments: EKG Findings:: EKG done in 195 and read by the ED attending physician reveals sinus rhythm with a rate of 91, no acute changes, normal axis, normal QRS morphology, some baseline artifact, normal intervals. Medical Decision Making - Medical Decision Making Patient had a recent admission and ended up having positive blood cultures. Patient was treated initially with ceftriaxone for urinary tract infection and subsequently was placed on cefepime and azithromycin pending blood cultures. Patient was seen by both infectious disease and pulmonary. Patient was discharged on June 19 on 2 antibiotics. Sent back today for increasing white blood cell count and worsening renal function. Patient states she is confused but is alert nighttimes 4. No focal neurologic deficit. Sounds as if the patient cultured out Staphylococcus epidermidis and Pseudomonas which was resistant to some antibiotics. Patient was started on cefepime and daptomycin. Patient was sent home on these antibiotics for [address] Gregorio. The case was discussed in detail with ED attending physician. Presentation, findings, treatment plan discussed in detail. Patient has leukocytosis, persistent infiltrate seen on x-ray both in the right lung field and left lung field. Urine does show 23 white cells per high-power field but no bacteria. Patient is already on cefepime and daptomycin. We'll hold antibiotics until she is assessed by infectious disease. Evidence of acute on chronic renal injury. Case discussed in detail with the patient's primary care physician, Dr. Desir. Patient will be admitted under his service. Consultation from infectious disease will be made. - Lab Data Result diagrams: 06/26/21 20:03 06/26/21 20:03 Lab Results 06/26/21 06/26/21 06/26/21 Range/Units 20:03 20:03 20:03 WBC 11.3 H (3.8-10.6) k/uL RBC 3.25 L (3.80-5.40) m/uL Hgb 8.8 L (11.4-16.0) gm/dL Hct 28.6 L (34.0-46.0) % MCV 88.0 (80.0-100.0) fL MCH 27.0 (25.0-35.0) pg MCHC 30.7 L (31.0-37.0) g/dL RDW 19.9 H (11.5-15.5) % Plt Count 356 (150-450) k/uL MPV 7.6 Neutrophils % 70 % Lymphocytes % 17 % Monocytes % 6 % Eosinophils % 3 % Basophils % 1 % Neutrophils # 7.9 H (1.3-7.7) k/uL Lymphocytes # 1.9 (1.0-4.8) k/uL Monocytes # 0.7 (0-1.0) k/uL Eosinophils # 0.4 (0-0.7) k/uL Basophils # 0.1 (0-0.2) k/uL Hypochromasia Marked Anisocytosis Slight Sodium 139 (137-145) mmol/L Potassium 3.9 (3.5-5.1) mmol/L Chloride 106 (98-107) mmol/L Carbon Dioxide 18 L (22-30) mmol/L Anion Gap 15 mmol/L BUN 47 H (7-17) mg/dL Creatinine 2.37 H (0.52-1.04) mg/dL Est GFR (CKD-EPI)AfAm 23 (>60 ml/min/1.73 sqM) Est GFR (CKD-EPI)NonAf 20 (>60 ml/min/1.73 sqM) Glucose 91 (74-99) mg/dL Plasma Lactic Acid Jonah 0.7 (0.7-2.0) mmol/L Calcium 8.7 (8.4-10.2) mg/dL Total Bilirubin 0.6 (0.2-1.3) mg/dL AST 27 (14-36) U/L ALT 26 (4-34) U/L Alkaline Phosphatase 275 H (38-126) U/L Ammonia <9 (<30) umol/L Troponin I (0.000-0.034) ng/mL Total Protein 8.0 (6.3-8.2) g/dL Albumin 4.4 (3.5-5.0) g/dL Lipase 182 (23-300) U/L TSH 8.140 H (0.465-4.680) mIU/L Free T4 1.20 (0.78-2.19) ng/dL Urine Color Urine Appearance (Clear) Urine pH (5.0-8.0) Ur Specific [place] (1.001-1.035) Urine Protein (Negative) Urine Glucose (UA) (Negative) Urine Ketones (Negative) Urine Blood (Negative) Urine Nitrite (Negative) Urine Bilirubin (Negative) Urine Urobilinogen (<2.0) mg/dL Ur Leukocyte Esterase (Negative) Urine RBC (0-5) /hpf Urine WBC (0-5) /hpf Ur Squamous Epith Cells (0-4) /hpf Amorphous Sediment (None) /hpf Coronavirus (PCR) (Not Detectd) 06/26/21 06/26/21 06/26/21 Range/Units 20:03 20:17 20:18 WBC (3.8-10.6) k/uL RBC (3.80-5.40) m/uL Hgb (11.4-16.0) gm/dL Hct (34.0-46.0) % MCV (80.0-100.0) fL MCH (25.0-35.0) pg MCHC (31.0-37.0) g/dL RDW (11.5-15.5) % Plt Count (150-450) k/uL MPV Neutrophils % % Lymphocytes % % Monocytes % % Eosinophils % % Basophils % % Neutrophils # (1.3-7.7) k/uL Lymphocytes # (1.0-4.8) k/uL Monocytes # (0-1.0) k/uL Eosinophils # (0-0.7) k/uL Basophils # (0-0.2) k/uL Hypochromasia Anisocytosis Sodium (137-145) mmol/L Potassium (3.5-5.1) mmol/L Chloride (98-107) mmol/L Carbon Dioxide (22-30) mmol/L Anion Gap mmol/L BUN (7-17) mg/dL Creatinine (0.52-1.04) mg/dL Est GFR (CKD-EPI)AfAm (>60 ml/min/1.73 sqM) Est GFR (CKD-EPI)NonAf (>60 ml/min/1.73 sqM) Glucose (74-99) mg/dL Plasma Lactic Acid Jonah (0.7-2.0) mmol/L Calcium (8.4-10.2) mg/dL Total Bilirubin (0.2-1.3) mg/dL AST (14-36) U/L ALT (4-34) U/L Alkaline Phosphatase (38-126) U/L Ammonia (<30) umol/L Troponin I <0.012 (0.000-0.034) ng/mL Total Protein (6.3-8.2) g/dL Albumin (3.5-5.0) g/dL Lipase (23-300) U/L TSH (0.465-4.680) mIU/L Free T4 (0.78-2.19) ng/dL Urine Color Yellow Urine Appearance Clear (Clear) Urine pH 6.0 (5.0-8.0) Ur Specific [place] 1.023 (1.001-1.035) Urine Protein 2+ H (Negative) Urine Glucose (UA) Negative (Negative) Urine Ketones Negative (Negative) Urine Blood Moderate H (Negative) Urine Nitrite Negative (Negative) Urine Bilirubin Negative (Negative) Urine Urobilinogen <2.0 (<2.0) mg/dL Ur Leukocyte Esterase Moderate H (Negative) Urine RBC 1 (0-5) /hpf Urine WBC 24 H (0-5) /hpf Ur Squamous Epith Cells 3 (0-4) /hpf Amorphous Sediment Occasional H (None) /hpf Coronavirus (PCR) Not Detected (Not Detectd) Disposition Clinical Impression: Persistent pneumonia, Leukocytosis, Acute kidney injury, General weakness Disposition: ADMITTED IP TO [facility] Condition: Fair Referrals: Ale Eli MD [Primary Care Provider] - 1-2 days Time of Disposition: 21:31
[2021-06-26 20:13] LABS: Anisocytosis Slight; Basophils # (A) 0.1 k/uL (0-0.2); Basophils % (A) 1 %; Eosinophils # (A) 0.4 k/uL (0-0.7); Eosinophils % (A) 3 %; HCT 28.6 % (34.0-46.0); HGB 8.8 gm/dL (11.4-16.0); Hypochromasia Marked; Lymphocytes # (A) 1.9 k/uL (1.0-4.8); Lymphocytes % (A) 17 %; MCHC 30.7 g/dL (31.0-37.0); Mean Platelet Volume 7.6; Monocytes # (A) 0.7 k/uL (0-1.0); Monocytes % (A) 6 %; Neutrophils # (A) 7.9 k/uL (1.3-7.7); Neutrophils % (A) 70 %; Platelet Count 356 k/uL (150-450); RBC 3.25 m/uL (3.80-5.40); RDW 19.9 % (11.5-15.5); WBC 11.3 k/uL (3.8-10.6)
[2021-06-26 20:22] LABS: Lactic Acid, Venous 0.7 mmol/L (0.7-2.0)
[2021-06-26 20:26] LABS: ALT 26 U/L (4-34); AST 27 U/L (14-36); African American GFR (CKD) 23 (>60 ml/min/1.73 sqM); Albumin 4.4 g/dL (3.5-5.0); Alkaline Phosphatase 275 U/L (38-126); Anion Gap 15 mmol/L; Blood Urea Nitrogen 47 mg/dL (7-17); Calcium 8.7 mg/dL (8.4-10.2); Carbon Dioxide 18 mmol/L (22-30); Chloride 106 mmol/L (98-107); Glucose 91 mg/dL (74-99); Lipase 182 U/L (23-300); Non-African American GFR(CKD) 20 (>60 ml/min/1.73 sqM); Potassium 3.9 mmol/L (3.5-5.1); Sodium 139 mmol/L (137-145); Total Bilirubin 0.6 mg/dL (0.2-1.3)
[2021-06-26 20:34] LABS: Amorphous Sediment,Urine Occasional /hpf; Appearance,Urine Clear (Clear); Bilirubin,Urine Negative (Negative); Blood,Urine Moderate (Negative); Color,Urine Yellow; Glucose,Urine (UA) Negative (Negative); Ketones,Urine Negative (Negative); Leukocyte Esterase,Urine Moderate (Negative); Nitrite,Urine Negative (Negative); Protein,Urine 2+ (Negative); RBC,Urine 1 /hpf (0-5); Specific Gravity,Urine 1.023 (1.001-1.035); Squamous Epithelial Cell,Urine 3 /hpf (0-4); Urobilinogen,Urine <2.0 mg/dL (<2.0); WBC,Urine 24 /hpf (0-5)
[2021-06-26] MEDS ORDERED: METOCLOPRAMIDE 5 MG/ML 2 ML VIAL IVP STA (20:53)
[2021-06-26] MEDS ORDERED: diphenhydrAMINE 50 MG/ML 1 ML VIAL IVP STA (20:53)
[2021-06-26] MEDS ORDERED: ACETAMINOPHEN TAB 500 MG TAB PO STA (20:53)
--- NOTE | 2021-06-26 21:16 | XR ---
EXAMINATION TYPE: XR chest 2V DATE OF EXAM: 06/26/2021 COMPARISON: 06/07/2021 HISTORY: Cough TECHNIQUE: Frontal and lateral views of the chest are obtained. FINDINGS: The right PICC remains in place. There are grossly unchanged moderate confluent opacities in the right upper and left midlungs. No pleural effusion, or pneumothorax seen. The cardiac silhoue tte size is within normal limits. The osseous structures are intact. IMPRESSION: No significant interval change.
[2021-06-26] MEDS ORDERED: HYDROmorphone 1 MG/ML 1 ML SYRINGE IVP STA (21:32)
[2021-06-26] MEDS ORDERED: NALOXONE 0.4 MG/ML 1 ML VIAL IV PRN (21:56)
[2021-06-26] MEDS ORDERED: bisacodyL 5 MG TABLET.DR PO PRN (21:56)
[2021-06-26] MEDS ORDERED: ACETAMINOPHEN TAB 325 MG TAB PO PRN (21:56)
[2021-06-26] MEDS: SODIUM CHLORIDE 0.9% 1,000 ML IV SCH (22:40)
[2021-06-26] MEDS: ENOXAPARIN 30 MG/0.3 ML SYRINGE SQ SCH (22:41)
[2021-06-26] MEDS: PROCHLORPERAZINE 5 MG TAB PO PRN (23:16)
[2021-06-27 02:00] LABS: Glucose,Whole Blood 83 mg/dL (75-99)
[2021-06-27] MEDS: HYDROmorphone 0.5 MG/0.5 ML SYRINGE IVP PRN ×4 (02:12→21:35)
[2021-06-27 07:30] LABS: Anisocytosis Slight; Basophils # (A) 0.1 k/uL (0-0.2); Basophils % (A) 1 %; Eosinophils # (A) 0.5 k/uL (0-0.7); Eosinophils % (A) 7 %; HGB 9.3 gm/dL (11.4-16.0); Hypochromasia Marked; Lymphocytes # (A) 1.7 k/uL (1.0-4.8); Lymphocytes % (A) 21 %; MCH 27.6 pg (25.0-35.0); MCHC 30.1 g/dL (31.0-37.0); MCV 91.5 fL (80.0-100.0); Mean Platelet Volume 7.6; Monocytes # (A) 0.4 k/uL (0-1.0); Monocytes % (A) 6 %; Neutrophils # (A) 4.9 k/uL (1.3-7.7); Neutrophils % (A) 63 %; Platelet Count 311 k/uL (150-450); RBC 3.39 m/uL (3.80-5.40); RDW 19.7 % (11.5-15.5); WBC 7.8 k/uL (3.8-10.6)
[2021-06-27 07:40] LABS: Calcium 8.3 mg/dL (8.4-10.2); Magnesium 2.5 mg/dL (1.6-2.3); Phosphorus 3.7 mg/dL (2.5-4.5)
[2021-06-27] MEDS: IPRATROPIUM-ALBUTEROL 3 ML NEB INHALATION SCH ×4 (08:16→21:05)
[2021-06-27] MEDS ORDERED: PANTOPRAZOLE 40 MG/10 ML VIAL IV SCH (09:00)
[2021-06-27] MEDS: ALPRAZolam 0.25 MG TAB PO PRN (09:36)
[2021-06-27] MEDS ORDERED: ALBUTEROL NEBULIZED 2.5 MG/3 ML INHALATION PRN (09:46)
[2021-06-27] MEDS ORDERED: FAMOTIDINE 20 MG TAB PO PRN (09:46)
[2021-06-27] MEDS: buPROPion XL 150 MG TAB.ER.24H PO SCH (12:16)
[2021-06-27] MEDS: buPROPion XL 300 MG TAB.ER.24H PO SCH (12:16)
[2021-06-27] MEDS: BUTALB/APAP/CAFF 50-325-40MG TAB PO PRN ×2 (12:16→23:23)
[2021-06-27] MEDS: FERROUS SULFATE 325 MG TAB PO SCH (12:16)
[2021-06-27] MEDS: SODIUM CHLORIDE 0.9% 1,000 ML IV SCH (13:46)
[2021-06-27] MEDS: hydrOXYzine pamoate 25 MG CAP PO SCH ×2 (17:01→21:41)
[2021-06-27] MEDS: PROCHLORPERAZINE 5 MG TAB PO PRN (17:28)
[2021-06-27] MEDS: DEXTROSE 5% IN WATER 1,000 ML with SODIUM BICARB (1 MEQ/ML) 150 ML IV SCH (17:28)
[2021-06-27] MEDS: PANTOPRAZOLE 40 MG TABLET PO SCH (17:28)
[2021-06-27] MEDS ORDERED: CEFEPIME 2 GM in SODIUM CHLORIDE 0.9% 100 ML IVPB SCH (18:00)
[2021-06-27] MEDS: CEFEPIME 2 GM in SODIUM CHLORIDE 0.9% 100 ML IVPB SCH (18:12)
[2021-06-27] MEDS ORDERED: TPN IV SCH (19:00)
--- NOTE | 2021-06-27 20:41 | CONS ---
CONSULTATION REASON FOR CONSULT: Acute kidney injury. HISTORY OF PRESENT ILLNESS: The patient is a 76-year-old female with history of chronic kidney disease NKF stage 3B secondary to some degree of nephrosclerosis with atrophic right kidney. Baseline creatinine has been about 1.5 mg/dL. The patient's creatinine was elevated at 2.37 on admission and it is now down to 2.09. She is maintained on IV fluids. Patient was admitted to the hospital with complaints of cough, shortness of breath. She states that she feels her pneumonia is not completely treated and she continues to return with similar symptoms. The patient was recently discharged on June 19 after hospitalization for about 11-12 days. At that time, she had volume depletion and urinary tract infection with acute kidney injury. The patient has had multiple episodes of acute kidney injury which respond well to IV hydration. No significant urinary symptoms. No history of fever, nausea, vomiting or diarrhea. PAST MEDICAL HISTORY: Significant for COPD, CVA, TIA, gastroesophageal reflux disease, asthma, osteoarthritis, CKD stage 3B, atrophic right kidney, hypothyroidism aspiration pneumonia, history of COVID pneumonia April of 2021, gastric ulcers, pancreatitis, bowel obstruction, spinal stenosis, hypothyroidism. PAST SURGICAL HISTORY: Back surgery, bowel resection, hysterectomy, laminectomy, diskectomy, colonoscopy, partial gastrectomy. SOCIAL HISTORY: Negative for smoking, drug abuse or alcohol abuse. MEDICATIONS: Medications prior to admission included iron, calcitriol, BuSpar, Remeron, Claritin, Imitrex, aspirin, Pepcid, Protonix, Lasix, Duragesic patch, Synthroid. ALLERGIES: INCLUDE MORPHINE, MOLD, PROLIA CAUSES PAIN. MORPHINE CAUSED CONFUSION. REVIEW OF SYSTEMS: As per HPI. PHYSICAL EXAMINATION: Patient is comfortable, awake. She is not in any acute distress. Blood pressure 143/66, heart rate 93 per minute. She is afebrile. Examination of the heart S1, S2. Examination of the lungs, bilateral breath sounds are heard. Abdomen is soft, nontender. Examination lower extremities shows no evidence of edema. DOCUMENT ADVISOR exam grossly intact. Patient is cachectic looking. LAB: Show sodium 139, potassium 4.0, chloride 113, CO2 is 14, BUN 39, creatinine 2.09, hemoglobin 9.3. UA shows 2+ protein. Urine WBCs 24. Chest x-ray shows no significant changes. Unchanged confluent opacities in the right upper and left mid lungs. ASSESSMENT: 1. Acute kidney injury prerenal currently improving with IV hydration. 2. Non gap metabolic acidosis associated with renal failure. No diarrhea reported. We will start patient on IV bicarb. 3. Recent urinary tract infection. 4. Chronic kidney disease stage 3B. Baseline creatinine about 1.5 mg/dL with atrophic right kidney. The patient is noted to have 2+ protein. This will be further evaluated if it is not worked up in the office yet. I will check our office records. PLAN: Change IV fluids to IV bicarb. Repeat labs in a.m. Avoid nephrotoxic agents. Thank you for this consultation. We will continue to follow the patient with you during her hospitalization. MMODL / IJN: [id number] /
[2021-06-27] MEDS: SYMBICORT 160-4.5 MCG INHALER INHALATION SCH (21:05)
[2021-06-27] MEDS: MIRTAZAPINE 45 MG TABLET PO SCH (21:40)
[2021-06-27] MEDS: busPIRone HCl 10 MG TAB PO SCH (21:40)
[2021-06-27] MEDS: oxyCODONE-APAP 7.5-325MG 1 EACH TAB PO SCH (21:40)
[2021-06-27] MEDS: ENOXAPARIN 30 MG/0.3 ML SYRINGE SQ SCH (23:24)
[2021-06-28] MEDS: CEFEPIME 2 GM in SODIUM CHLORIDE 0.9% 100 ML IVPB SCH (05:40)
[2021-06-28] MEDS: LEVOTHYROXINE 100 MCG TAB PO SCH (05:40)
[2021-06-28] MEDS: HYDROmorphone 0.5 MG/0.5 ML SYRINGE IVP PRN ×4 (05:40→22:13)
[2021-06-28] MEDS: PROCHLORPERAZINE 5 MG TAB PO PRN ×2 (05:45→15:56)
[2021-06-28] MEDS: DEXTROSE 5% IN WATER 1,000 ML with SODIUM BICARB (1 MEQ/ML) 150 ML IV SCH ×3 (08:12→21:08)
[2021-06-28] MEDS: SYMBICORT 160-4.5 MCG INHALER INHALATION SCH ×2 (08:16→19:59)
[2021-06-28] MEDS: IPRATROPIUM-ALBUTEROL 3 ML NEB INHALATION SCH ×4 (08:16→19:59)
--- NOTE | 2021-06-28 08:27 | P.CONS ---
History of Present Illness - Reason for Consult Consult date: 06/27/21 pneumonia Requesting physician: Palmer Desir - Chief Complaint not feelig well x 1 day - History of Present Illness History of Present Illness : Patient is a 76-year-old female with a past medical history significant for COPD patient has history of recurrent pneum onia patient also history of gastrectomy Charcot syndrome and has been on PICC line and TPN patient was recently admitted at this facility the patient did have evidence of PICC line infection with a blood culture positive for staph epi and Pseudomonas patient was advised daptomycin and cefepime the patient was currently receiving at home since 06/20/2021 with a negative blood culture on 06/13/2021 patient now presenting to [facility] ER for evaluation of her mental status changes not feeling well has been complaining of a cough producing mild sputum has been complaining of some lower rib cage chest pain more of a dull aching 5-6 out of 10 head no radiation patient denies having any nausea no vomiting and no diarrhea on presentation to the hospital the patient was afebrile and no fever has been recorded subsequently patient is currently satting 99% on room air patient did have white count of 11.3 with a left shift creatinine is 2.37 liver exams are normal urine has been positive matute PCR was negative patient did have a chest x-ray no significant interval change with moderate opacities in the right upper and left midlung patient has been admitted to the hospital with concern for pneumonia infectious disease was consulted for further management of antibiotic therapy Review of system: CONSTITUTIONAL: Positive for weakness denies high-grade fever. EYES: No complaint. ENT: No complaint. RESPIRATORY: As per history of present illness. CARDIOVASCULAR: No complaint. GENITOURINARY: No complaint. GASTROINTESTINAL: As per history of present illness. MUSCULOSKELETAL: No complaint. INTEGUMENTARY : No complaint. PSYCHOLOGIC: No complaint. ENDOCRINE: No complaint. NEUROLOGIC: No complaint. Past medical history : Reviewed, documented below Past surgical history : Reviewed, documented below Social history: Reviewed, documented below Medications: Reviewed, as documented below EXAMINATION: Vital sigans= Reviewed and documented below GENERAL DESCRIPTION: Elderly female lying in bed, no distress. No tachypnea or accessory muscle of respiration use. HEENT: Shows Pallor , no scleral icterus. Oral mucous membrane is dry. NECK: Trachea central, no thyromegaly. LUNGS: Unlabored breathing. Decreased breath sound at the base. No wheeze or crackle. HEART: S1, S2, regular rate and rhythm. ABDOMEN: Soft, no tenderness , guarding or rigidity EXTREMITIES: No edema feet SKIN: No rash, no masses palpable. NEUROLOGICAL: The patient is awake, alert, oriented x3, mood and affect normal. LABS AND RADIOLOGY: Reviewed results see below Assessment : Patient presented to hospital with weakness not feeling well patient did have mild cough with occasional sputum in this patient on presentation the hospital was afebrile chest x-ray was not different from her previous x-ray in this patient was recently treated for bacteremia related to the PICC line which was subsequent discontinued and the patient has received about 2 weeks of antibiotic, clinically suspicious low for pneumonia in this patient with no fever and no hypoxemia currently 99% on room air however the pat ient did have abnormal x-ray and need to be investigated further Plan: 1-we will obtain a CRP and a procalcitonin level 2-CT of the chest without contrast to better define underlying pulmonary abno rmality 3-empirically add cefepime while waiting for the work-up to be completed We will follow on clinical condition and cultures to further adjust medication if needed Thank you for this consultation we will follow the patient along with you Past Medical History Past Medical History: Asthma, COPD, CVA/TIA, GERD/Reflux, Memory Impairment, Osteoarthritis (OA), Pneumonia, Renal Disease, Respiratory Disorder, Thyroid Disorder Additional Past Medical History / Comment(s): Aspiration, pneumonias, covid pneumonia, protein calorie malnutrition, pt is on TPN/ manage thru [facility], chronic anemia, gastric ulcers/PUD, pancreatitis, bowel obstruction/surgery, constipation, CKD stage IV, TIA, chronic migraines, chronic back/cervical pain/spinal stenosis, hypothyroid, hyponatremia. History of Any Multi-Drug Resistant Organisms: Other MDRO Past Surgical History: Back Surgery, Bowel Resection, Hysterectomy, Joint Replacement Additional Past Surgical History / Comment(s): LOWER BACK SURGERY lamenectomy/discetomy then had a revison of that sx. 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 She uses a walker at times to ambulate. She no longer drives, her geospatial program management officer Jonn Parnell was driving her but has been having health issues so her [employer] drives her if needed. She has [facility] home care for TPN infusions. She has ACT visits twice a week to check on her mental health. She recieves her meds in blister packs. Smoking Status: Never smoker Past Alcohol Use History: None Reported Past Drug Use History: None Reported - Past Family History Father Family Medical History: Cancer, Coronary Artery Disease (CAD) Additional Family Medical History / Comment(s): FATHER HAD BLADDER AND KIDNEY CANCER. FATHER HAD TB WHEN HE WAS A CHILD .FATHER AT AGE 87. Mother Family Medical History: Cancer Additional Family Medical History / Comment(s): MOTHER AT AGE 58 OF OVARIAN CANCER. Medications and Allergies Home Medications Medication Instructions Recorded Confirmed Type Ferrous Sulfate [Iron (65 MG 325 mg PO DAILY@1200 11/06/15 06/26/21 History Elemental)] calcitrioL [Calcitriol] 1 mcg PO MOWEFR 06/07/19 06/26/21 History busPIRone HCL [Buspar] 30 mg PO BID 04/14/20 06/26/21 History Pantoprazole Sodium [Protonix] 40 mg PO BID 30 Days #60 tablet. 04/27/20 06/26/21 Rx Butalb/APAP/Caff 50-325-40Mg 1 tab PO BID PRN 06/30/20 06/26/21 History [Fioricet 50-325-40] buPROPion XL [Wellbutrin XL] 150 mg PO DAILY 11/04/20 06/26/21 History Furosemide [Lasix] 20 mg PO DAILY #6 tab 12/13/20 06/26/21 Rx fentaNYL 75MCG/HR PATCH [Duragesic 1 patch TRANSDERM Q72H 3 Days #3 12/13/20 06/26/21 Rx 75MCG/HR] patch Tpn 1 dose IV DAILY@1900 02/20/21 06/26/21 History buPROPion XL [Wellbutrin XL] 300 mg PO DAILY 02/20/21 06/26/21 History Albuterol Sulfate [Albuterol 2 puff INHALATION RT-Q6H PRN 04/07/21 06/26/21 History Sulfate Hfa] Budesonide/Formoterol Fumarate 2 puff INHALATION RT-BID 04/07/21 06/26/21 History [Symbicort 160-4.5 Mcg Inhaler] Loratadine [Claritin] 10 mg PO DAILY 04/07/21 06/26/21 History Mirtazapine [Remeron] 45 mg PO HS 04/07/21 06/26/21 History SUMAtriptan succinate [Imitrex] 50 mg PO BID PRN 05/04/21 06/26/21 History Thiamine [Vitamin B-1] 100 mg PO DAILY 05/04/21 06/26/21 History Aspirin EC [Ecotrin Low Dose] 81 mg PO DAILY 05/12/21 06/26/21 History hydrOXYzine pamoate [Vistaril] 50 mg PO TID 06/06/21 06/26/21 History oxyCODONE-APAP 7.5-325MG [Percocet 1 tab PO BID 06/06/21 06/26/21 History 7.5-325 mg] Levothyroxine Sodium [Synthroid] 100 mcg PO DAILY@0630 30 Days #30 06/19/21 06/26/21 Rx tab Famotidine [Pepcid] 20 mg PO DAILY PRN 06/26/21 06/26/21 History Allergies Allergy/AdvReac Type Severity Reaction Status Date / Time mold Allergy Itching Verified 06/26/21 20:25 denosumab [From Prolia] AdvReac SEVERE Verified 06/26/21 20:25 CALCIUM LOSS morphine AdvReac Confusion Verified 06/26/21 20:25 DUST Allergy Itching Uncoded 06/26/21 20:25 Physical Exam Vitals: Vital Signs Temp Pulse Pulse Resp BP BP Pulse Ox 06/27/21 11:21 90 06/27/21 11:13 88 06/27/21 08:24 86 06/27/21 08:16 87 06/27/21 07:59 97.7 F 72 18 146/67 97 06/27/21 03:59 97.5 F L 94 18 170/80 100 06/27/21 01:56 97.8 F 78 18 142/79 97 06/27/21 00:00 98 F 99 22 132/87 97 06/26/21 23:00 89 20 133/88 98 06/26/21 21:24 98.3 F 95 22 135/89 100 Intake and Output 06/26/21 06/27/21 06/27/21 22:59 06:59 14:59 Intake Total 118 Balance 118 Intake: Oral 118 Other: # Voids 1 Weight 41.277 kg 41.277 kg Results CBC & Chem 7: 06/27/21 06:56 06/27/21 06:56 Labs: Abnormal Lab Results - Last 24 Hours (Table) 06/26/21 06/26/21 06/26/21 Range/Units 20:03 20:03 20:17 WBC 11.3 H (3.8-10.6) k/uL RBC 3.25 L (3.80-5.40) m/uL Hgb 8.8 L (11.4-16.0) gm/dL Hct 28.6 L (34.0-46.0) % MCHC 30.7 L (31.0-37.0) g/dL RDW 19.9 H (11.5-15.5) % Neutrophils # 7.9 H (1.3-7.7) k/uL Chloride (98-107) mmol/L Carbon Dioxide 18 L (22-30) mmol/L BUN 47 H (7-17) mg/dL Creatinine 2.37 H (0.52-1.04) mg/dL Calcium (8.4-10.2) mg/dL Magnesium (1.6-2.3) mg/dL Alkaline Phosphatase 275 H (38-126) U/L TSH 8.140 H (0.465-4.680) mIU/L Urine Protein 2+ H (Negative) Urine Blood Moderate H (Negative) Ur Leukocyte Esterase Moderate H (Negative) Urine WBC 24 H (0-5) /hpf Amorphous Sediment Occasional H (None) /hpf 06/27/21 06/27/21 Range/Units 06:56 06:56 WBC (3.8-10.6) k/uL RBC 3.39 L (3.80-5.40) m/uL Hgb 9.3 L (11.4-16.0) gm/dL Hct 31.0 L (34.0-46.0) % MCHC 30.1 L (31.0-37.0) g/dL RDW 19.7 H (11.5-15.5) % Neutrophils # (1.3-7.7) k/uL Chloride 113 H (98-107) mmol/L Carbon Dioxide 14 L (22-30) mmol/L BUN 39 H (7-17) mg/dL Creatinine 2.09 H (0.52-1.04) mg/dL Calcium 8.3 L (8.4-10.2) mg/dL Magnesium 2.5 H (1.6-2.3) mg/dL Alkaline Phosphatase (38-126) U/L TSH (0.465-4.680) mIU/L Urine Protein (Negative) Urine Blood (Negative) Ur Leukocyte Esterase (Negative) Urine WBC (0-5) /hpf Amorphous Sediment (None) /hpf Microbiology - Last 24 Hours (Table) 06/26/21 20:17 Urine Culture - Preliminary Urine,Voided
[2021-06-28] MEDS: LORATADINE 10 MG TAB PO SCH (08:44)
[2021-06-28] MEDS: ASPIRIN 81 MG PO SCH (08:44)
[2021-06-28] MEDS: THIAMINE 100 MG TAB PO SCH (08:44)
[2021-06-28] MEDS: FUROSEMIDE 20 MG TAB PO SCH (08:44)
[2021-06-28] MEDS: oxyCODONE-APAP 7.5-325MG 1 EACH TAB PO SCH ×2 (08:44→21:03)
[2021-06-28] MEDS: busPIRone HCl 10 MG TAB PO SCH ×2 (08:45→21:05)
[2021-06-28] MEDS: ALPRAZolam 0.25 MG TAB PO PRN ×2 (08:45→21:02)
[2021-06-28] MEDS: PANTOPRAZOLE 40 MG TABLET PO SCH ×2 (08:45→17:23)
[2021-06-28] MEDS: buPROPion XL 300 MG TAB.ER.24H PO SCH (08:46)
[2021-06-28] MEDS: hydrOXYzine pamoate 25 MG CAP PO SCH ×3 (08:46→21:04)
[2021-06-28] MEDS: buPROPion XL 150 MG TAB.ER.24H PO SCH (08:46)
--- NOTE | 2021-06-28 09:08 | P.HPIM ---
History of Present Illness H&P Date: 06/27/21 Louise Sutton, he is a 76-year-old female who presented to [facility] with a chief complaint of generalized weakness, dehydration was elevated BUN and creatinine and leukocytosis She was evaluated in the emergency room vital examination on presentation revealed a temperature of 98.3 pulse 95 respiration 22 blood pressure 135/89 pulse ox 100% on room air Laboratory data revealed a white blood count of 11.3 hemoglobin 8.8 platelet count 356 sodium 139 potassium 3.9 chloride 106 CO2 18 BUN 47 creatinine 2.37 Testing in the emergency room revealed chest x-ray revealed a right upper lobe and left mid lung opacities, EKG was normal Patient was admitted to medical floor for further evaluation and treatment. Patient was recently discharged from [facility] after an admission for pneumonia and sepsis with positive blood culture patient is followed by Dr. Gregorio then was maintained on IV cefepime at home. Patient also has multiple medical problem and is maintained on TPN at home. Past Medical History Past Medical History: Asthma, COPD, CVA/TIA, GERD/Reflux, Memory Impairment, Osteoarthritis (OA), Pneumonia, Renal Disease, Respiratory Disorder, Thyroid Disorder Additional Past Medical History / Comment(s): Aspiration, pneumonias, covid pneumonia, protein calorie malnutrition, pt is on TPN/ manage thru [facility], chronic anemia, gastric ulcers/PUD, pancreatitis, bowel obstruction/surgery, constipation, CKD stage IV, TIA, chronic migraines, chronic back/cervical pain/spinal stenosis, hypothyroid, hyponatremia. History of Any Multi-Drug Resistant Organisms: Other MDRO Past Surgical History: Back Surgery, Bowel Resection, Hysterectomy, Joint Replacement Additional Past Surgical History / Comment(s): LOWER BACK SURGERY lamenectomy/discetomy then had a revison of that sx. 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, nasal sx d/t broken nose, colonoscopy/egd, PAIN CLINIC PROCEDURES, PORT A CATH INSERTION, LT ADEOLA Past Anesthesia/Blood Transfusion Reactions: No Reported Reaction Additional Past Anesthesia/Blood Transfusion Reaction / Comment(s): PT RECIEVED BLOOD TRANSFUSIONS AFTER STOMACH SURGERY Past Psychological History: Anxiety, Depression, Panic Disorder Additional Psychological History / Comment(s): Pt resides alone in an apartment She states she has a medical legal guardian, Rosario Oneal. She uses a walker at times to ambulate. She no longer drives, her communication clerk Jonn Parnell was driving her but has been having health issues so her LG drives her if needed. She has [facility] home care for TPN infusions. She has ACT visits twice a week to check on her mental health. She recieves her meds in blister packs. Smoking Status: Never smoker Past Alcohol Use History: None Reported Past Drug Use History: None Reported - Past Family History Father Family Medical History: Cancer, Coronary Artery Disease (CAD) Additional Family Medical History / Comment(s): FATHER HAD BLADDER AND KIDNEY CANCER. FATHER HAD TB WHEN HE WAS A CHILD .FATHER AT AGE 87. Mother Family Medical History: Cancer Additional Family Medical History / Comment(s): MOTHER AT AGE 58 OF OVARIAN CANCER. Medications and Allergies Home Medications Medication Instructions Recorded Confirmed Type Ferrous Sulfate [Iron (65 MG 325 mg PO DAILY@1200 11/06/15 06/26/21 History Elemental)] calcitrioL [Calcitriol] 1 mcg PO MOWEFR 06/07/19 06/26/21 History busPIRone HCL [Buspar] 30 mg PO BID 04/14/20 06/26/21 History Pantoprazole Sodium [Protonix] 40 mg PO BID 30 Days #60 tablet. 04/27/20 06/26/21 Rx Butalb/APAP/Caff 50-325-40Mg 1 tab PO BID PRN 06/30/20 06/26/21 History [Fioricet 50-325-40] buPROPion XL [Wellbutrin XL] 150 mg PO DAILY 11/04/20 06/26/21 History Furosemide [Lasix] 20 mg PO DAILY #6 tab 12/13/20 06/26/21 Rx fentaNYL 75MCG/HR PATCH [Duragesic 1 patch TRANSDERM Q72H 3 Days #3 12/13/20 06/26/21 Rx 75MCG/HR] patch Tpn 1 dose IV DAILY@1900 02/20/21 06/26/21 History buPROPion XL [Wellbutrin XL] 300 mg PO DAILY 02/20/21 06/26/21 History Albuterol Sulfate [Albuterol 2 puff INHALATION RT-Q6H PRN 04/07/21 06/26/21 History Sulfate Hfa] Budesonide/Formoterol Fumarate 2 puff INHALATION RT-BID 04/07/21 06/26/21 History [Symbicort 160-4.5 Mcg Inhaler] Loratadine [Claritin] 10 mg PO DAILY 04/07/21 06/26/21 History Mirtazapine [Remeron] 45 mg PO HS 04/07/21 06/26/21 History SUMAtriptan succinate [Imitrex] 50 mg PO BID PRN 05/04/21 06/26/21 History Thiamine [Vitamin B-1] 100 mg PO DAILY 05/04/21 06/26/21 History Aspirin EC [Ecotrin Low Dose] 81 mg PO DAILY 05/12/21 06/26/21 History hydrOXYzine pamoate [Vistaril] 50 mg PO TID 06/06/21 06/26/21 History oxyCODONE-APAP 7.5-325MG [Percocet 1 tab PO BID 06/06/21 06/26/21 History 7.5-325 mg] Levothyroxine Sodium [Synthroid] 100 mcg PO DAILY@0630 30 Days #30 06/19/21 06/26/21 Rx tab Famotidine [Pepcid] 20 mg PO DAILY PRN 06/26/21 06/26/21 History Allergies Allergy/AdvReac Type Severity Reaction Status Date / Time mold Allergy Itching Verified 06/26/21 20:25 denosumab [From Prolia] AdvReac SEVERE Verified 06/26/21 20:25 CALCIUM LOSS morphine AdvReac Confusion Verified 06/26/21 20:25 DUST Allergy Itching Uncoded 06/26/21 20:25 Physical Exam Vitals: Vital Signs Temp Pulse Pulse Resp BP BP Pulse Ox 06/27/21 08:24 86 06/27/21 08:16 87 06/27/21 07:59 97.7 F 72 18 146/67 97 06/27/21 03:59 97.5 F L 94 18 170/80 100 06/27/21 01:56 97.8 F 78 18 142/79 97 06/27/21 00:00 98 F 99 22 132/87 97 06/26/21 23:00 89 20 133/88 98 06/26/21 21:24 98.3 F 95 22 135/89 100 Intake and Output 06/26/21 06/27/21 06/27/21 22:59 06:59 14:59 Intake Total 118 Balance 118 Intake: Oral 118 Other: # Voids 1 Weight 41.277 kg 41.277 kg In general patient is alert and oriented x 3 in no distress HEENT head normocephalic and atraumatic Neck is supple no JVD no goiter no lymphadenopathy no carotid bruit Chest examination is clear to auscultation no crackles no wheezing Cardiac exam reveals regular heart sounds S1 and S2 no gallops no murmurs Abdomen is soft nontender no organomegaly with normal bowel sounds Extremity exam reveals no edema no cyanosis or clubbing Neurological examination reveals no gross focal deficits Results CBC & Chem 7: 06/27/21 06:56 06/27/21 06:56 Labs: Abnormal Lab Results - Last 24 Hours (Table) 06/26/21 06/26/21 06/26/21 Range/Units 20:03 20:03 20:17 WBC 11.3 H (3.8-10.6) k/uL RBC 3.25 L (3.80-5.40) m/uL Hgb 8.8 L (11.4-16.0) gm/dL Hct 28.6 L (34.0-46.0) % MCHC 30.7 L (31.0-37.0) g/dL RDW 19.9 H (11.5-15.5) % Neutrophils # 7.9 H (1.3-7.7) k/uL Chloride (98-107) mmol/L Carbon Dioxide 18 L (22-30) mmol/L BUN 47 H (7-17) mg/dL Creatinine 2.37 H (0.52-1.04) mg/dL Calcium (8.4-10.2) mg/dL Magnesium (1.6-2.3) mg/dL Alkaline Phosphatase 275 H (38-126) U/L TSH 8.140 H (0.465-4.680) mIU/L Urine Protein 2+ H (Negative) Urine Blood Moderate H (Negative) Ur Leukocyte Esterase Moderate H (Negative) Urine WBC 24 H (0-5) /hpf Amorphous Sediment Occasional H (None) /hpf 06/27/21 06/27/21 Range/Units 06:56 06:56 WBC (3.8-10.6) k/uL RBC 3.39 L (3.80-5.40) m/uL Hgb 9.3 L (11.4-16.0) gm/dL Hct 31.0 L (34.0-46.0) % MCHC 30.1 L (31.0-37.0) g/dL RDW 19.7 H (11.5-15.5) % Neutrophils # (1.3-7.7) k/uL Chloride 113 H (98-107) mmol/L Carbon Dioxide 14 L (22-30) mmol/L BUN 39 H (7-17) mg/dL Creatinine 2.09 H (0.52-1.04) mg/dL Calcium 8.3 L (8.4-10.2) mg/dL Magnesium 2.5 H (1.6-2.3) mg/dL Alkaline Phosphatase (38-126) U/L TSH (0.465-4.680) mIU/L Urine Protein (Negative) Urine Blood (Negative) Ur Leukocyte Esterase (Negative) Urine WBC (0-5) /hpf Amorphous Sediment (None) /hpf Microbiology - Last 24 Hours (Table) 06/26/21 20:17 Urine Culture - Preliminary Urine,Voided Thrombosis Risk Factor Assmnt - Choose All That Apply Any of the Below Risk Factors Present?: Yes Each Factor Represents 1 point: Abnormal pulmonary function (COPD) Other Risk Factors: Yes Each Risk Factor Represents 2 Points: Age 61-74 years Other congenital or acquired thrombophilia - If yes, enter type in comment: No Thrombosis Risk Factor Assessment Total Risk Factor Score: 3 Thrombosis Risk Factor Assessment Level: Moderate Risk Assessment and Plan Plan: Dehydration with acute kidney injury Worsening leukocytosis Recent admission was sepsis and positive blood culture Underlying history of hypothyroidism Underlying history of chronic back pain with history of laminectomy Underlying history of severe protein calorie malnutrition maintained on TPN Underlying history of recurrent aspiration pneumonia Previous history of pancreatitis Previous history of bowel obstruction At this time patient is admitted to medical floor she is started on IV fluid Will monitor kidney function closely, Nephrology consultation requested. Antibiotics were held in the emergency room due to elevated creatinine, infectious disease consultation was requested Will follow closely
--- NOTE | 2021-06-28 10:41 | P.PN ---
Subjective Progress Note Date: 06/28/21 Louise Sutton, he is a 76-year-old female who presented to [facility] with a chief complaint of generalized weakness, dehydration was elevated BUN and creatinine and leukocytosis She was evaluated in the emergency room vital examination on presentation revealed a temperature of 98.3 pulse 95 respiration 22 blood pressure 135/89 pulse ox 100% on room air Laboratory data revealed a white blood count of 11.3 hemoglobin 8.8 platelet count 356 sodium 139 potassium 3.9 chloride 106 CO2 18 BUN 47 creatinine 2.37 Testing in the emergency room revealed chest x-ray revealed a right upper lobe a nd left mid lung opacities, EKG was normal Patient was admitted to medical floor for further evaluation and treatment. Patient was recently discharged from [facility] after an admiss ion for pneumonia and sepsis with positive blood culture patient is followed by Dr. Gregorio then was maintained on IV cefepime at home. Patient also has multiple medical problem and is maintained on TPN at home. On 06/28/2021 patient is alert and oriented 3. Antibiotics have been adjusted to Maxipime per infectious disease. Computed tomography scan of the chest also ordered. This time patient complains of generalized pain. Patient denies nausea vomiting or diarrhea. Patient denies any urinary burning or frequency. White blood cell improving to 7.8. Creatinine 2.09 and bun 39 Objective - Vital Signs Vital signs: Vital Signs Temp 98.8 F 06/28/21 08:00 Pulse 76 06/28/21 08:28 Resp 18 06/28/21 08:00 BP 152/72 06/28/21 08:00 Pulse Ox 97 06/28/21 08:00 Intake & Output 06/27/21 06/28/21 06/28/21 18:59 06:59 18:59 Intake Total 236 240 Balance 236 240 Weight 41.277 kg Intake: Oral 236 240 - Exam In general patient is alert and oriented x 3 in no distress HEENT head normocephalic and atraumatic Neck is supple no JVD no goiter no lymphadenopathy no carotid bruit Chest examination is clear to auscultation no crackles no wheezing Cardiac exam reveals regular heart sounds S1 and S2 no gallops no murmurs Abdomen is soft nontender no organomegaly with normal bowel sounds Extremity exam reveals no edema no cyanosis or clubbing Neurological examination reveals no gross focal deficits - Labs CBC & Chem 7: 06/27/21 06:56 06/27/21 06:56 Labs: Microbiology - Last 24 Hours (Table) 06/26/21 20:20 Blood Culture - Preliminary Blood No Growth after 24 hours 06/26/21 20:03 Blood Culture - Preliminary Blood No Growth after 24 hours 06/26/21 20:17 Urine Culture - Preliminary Urine,Voided Assessment and Plan Plan: Dehydration with acute kidney injury Worsening leukocytosis Recent admission was sepsis and positive blood culture Underlying history of hypothyroidism Underlying history of chronic back pain with history of laminectomy Underlying history of severe protein calorie malnutrition maintained on TPN Underlying history of recurrent aspiration pneumonia Previous history of pancreatitis Previous history of bowel obstruction DVT prophylaxis Lovenox. GI prophylaxis Protonix Infectious disease and nephrology services are following Maintained on IV antibiotics Maintained on IV fluid Computed tomography scan of the chest ordered Repeat labs ordered
[2021-06-28 11:52] LABS: Basophils # (A) 0.08 X 10*3/uL (0.00-0.10); Basophils % (A) 0.8 %; Eosinophils # (A) 0.56 X 10*3/uL (0.04-0.35); Eosinophils % (A) 5.7 %; HCT 25.6 % (37.2-46.3); HGB 7.7 g/dL (12.0-15.0); Immature Grans, Automated 0.3 %; Lymphocytes # (A) 1.92 X 10*3/uL (0.90-5.00); Lymphocytes % (A) 19.7 %; MCH 25.8 pg (27.0-32.0); MCHC 30.1 g/dL (32.0-37.0); MCV 85.9 fL (80.0-97.0); Mean Platelet Volume 9.8 fL (9.5-12.2); Monocytes # (A) 0.87 X 10*3/uL (0.20-1.00); Monocytes % (A) 8.9 %; NRBC Per 100 WBC 0 /100 WBCS (0.0-0.0); Neutrophils # (A) 6.28 X 10*3/uL (1.80-7.70); Neutrophils % (A) 64.6 %; Platelet Count 303 X 10*3/uL (140-440); RBC 2.98 X 10*6/uL (4.10-5.20); RDW 20.5 % (11.5-14.5); WBC 9.74 X 10*3/uL (4.50-10.00)
--- NOTE | 2021-06-28 11:53 | CT ---
EXAMINATION TYPE: CT chest wo con DATE OF EXAM: 06/28/2021 INDICATION: Persistent Pneumonia CT DLP: 232 mGy.cm Automated Exposure Control for Dose Reduction was Utilized. TECHNIQUE AND CONTRAST: CT scan of the chest without IV contrast administration. COMPARISON: CT dated 04/08/2021 FINDINGS: Minimal right and moderate left pleural effusions. Persistent atelectatic soft tissue thickening/cons olidation scattered in both lungs most evident at the posterior aspect of the right midlung zone and the lateral aspect of the left mid to lower lung zone. The large areas of consolidation/soft tissue t hickening are grossly stable demonstrating air bronchogram within. Slightly smaller cavitary area at the posterior aspect of the right upper lobe. Multiple variable sized nodules seen at the mid and lower lung zones measuring up to 18 mm in the lef t lower lobe compared to 2.1 cm previously. The lung nodules are generally slightly smaller in size c ompared to the previous CT scan. Newly seen groundglass opacity in the anterolateral aspect of the le ft lower lobe and the posterior aspect of the left upper lobe. No definite new lung lesion identified otherwise. Persistent cardiomediastinal shift to the right aristides e and loss of volume of the posterior aspect of the right lung. Patent trachea and main bronchi. Ques tionable anemia, please correlate with hemoglobin level. Arterial and coronary atherosclerotic calcif ication. No pericardial effusion. Right-sided PICC line with the tip is seen within the SVC. No pathologically enlarged axillary lymph nodes. Stable prominent subcentimeter subcarinal and medias tinal lymph nodes. Hilar lymph nodes are suboptimally assessed. Dilated ascending aorta measures up t o 3.8 cm. Bulky spleen. Dilated inferior aspect of the esophagus with previous gastric surgery. Pleas e correlate with the patient's surgical history. Hyperdense lesion at the upper pole of the left kidney measuring 8mm, slightly larger compared to the previous and could represent a hemorrhagic cyst however solid lesion can't be excluded, for ultrasou nd assessment. Surgical clips are seen in the upper abdomen. Atrophic pancreas. No gross aggressive b one lesion. IMPRESSION: Persistent pulmonary nodules and thick areas of pulmonary consolidation/soft tissue thickening demons trating minimal interval changes as described above. Newly seen areas of groundglass opacities as brooke cribed above. The underlying etiology could be related to persistent extensive chronic infection, pos sibly atypical infection, however underlying neoplastic process with metastatic disease can't be excl uded. Recommend clinical correlation and further workup. Enlarging left upper pole hyperdense renal lesion, possibly enlarging hemorrhagic cyst however solid lesion cannot be excluded, please correlate with ultrasound results. Other interval changes and incid ental findings as described above.
[2021-06-28 12:11] LABS: ALT 23 U/L (8-44); AST 20 U/L (13-35); African American GFR (CKD) 33.6 (60.0-200.0); Albumin 3.6 g/dL (3.8-4.9); Albumin/Globulin Ratio 1.47 (1.60-3.17); Alkaline Phosphatase 244 U/L (41-126); BUN/Creat Ratio 16.49 Ratio (12.00-20.00); Blood Urea Nitrogen 28.2 mg/dL (9.0-27.0); Calcium 8.4 mg/dL (8.7-10.3); Carbon Dioxide 17.1 mmol/L (20.0-27.5); Chloride 107 mmol/L (96-109); Globulin 2.4 g/dL (1.6-3.3); Glucose 109 mg/dL (70-110); Sodium 138 mmol/L (135-145); Total Bilirubin <0.15 mg/dL (0.30-1.20)
[2021-06-28] MEDS: FERROUS SULFATE 325 MG TAB PO SCH (12:34)
[2021-06-28] MEDS ORDERED: MVI, ADULT NO.4 WITH VIT K 10 ML, TRACE (CONC-1ML/DOSE) 1 ML, CALCIUM GLUCONATE 1 GM, S... IV SCH ×7 (13:00)
--- NOTE | 2021-06-28 14:41 | P.PN ---
Subjective Patient is seen for follow-up for acute kidney injury and top of chronic kidney disease. she is currently maintained on IV fluids. Overall she states she is feeling better. Started on IV bicarb yesterday. Serum creatinine down to 1.7 Objective - Vital Signs Vital signs: Vital Signs Temp 98.0 F 06/28/21 14:00 Pulse 105 H 06/28/21 14:00 Resp 18 06/28/21 14:00 BP 149/75 06/28/21 14:00 Pulse Ox 98 06/28/21 14:00 Intake & Output 06/27/21 06/28/21 06/28/21 18:59 06:59 18:59 Intake Total 236 480 Balance 236 480 Weight 41.277 kg 41.277 kg Intake: Oral 236 480 - Exam Patient is awake comfortable. Not in any acute distress. Examination of the heart S1 and S2 Examination lungs bilateral breath sounds are heard Abdomen is soft nontender Examination of lower extremities shows no evidence of edema. [place] exam grossly intact - Labs CBC & Chem 7: 06/28/21 06:52 06/28/21 06:52 Labs: Abnormal Lab Results - Last 24 Hours (Table) 06/28/21 06/28/21 06/28/21 Range/Units 06:52 06:52 06:52 RBC 2.98 L (4.10-5.20) X 10*6/uL Hgb 7.7 L (12.0-15.0) g/dL Hct 25.6 L (37.2-46.3) % MCH 25.8 L (27.0-32.0) pg MCHC 30.1 L (32.0-37.0) g/dL RDW 20.5 H (11.5-14.5) % Eosinophils # 0.56 H (0.04-0.35) X 10*3/uL Carbon Dioxide 17.1 L (20.0-27.5) mmol/L BUN 28.2 H (9.0-27.0) mg/dL Creatinine 1.7 H (0.6-1.5) mg/dL Est GFR (CKD-EPI)AfAm 33.6 L (60.0-200.0) Est GFR (CKD-EPI)NonAf 29.0 L (60.0-200.0) Calcium 8.4 L (8.7-10.3) mg/dL Total Bilirubin <0.15 L (0.30-1.20) mg/dL Alkaline Phosphatase 244 H (41-126) U/L C-Reactive Protein 3.60 H (0.00-0.80) mg/dL Total Protein 6.0 L (6.2-8.2) g/dL Albumin 3.6 L (3.8-4.9) g/dL Albumin/Globulin Ratio 1.47 L (1.60-3.17) g/dL Procalcitonin 0.18 H (0.02-0.09) ng/mL Microbiology - Last 24 Hours (Table) 06/26/21 20:17 Urine Culture - Final Urine,Voided 06/26/21 20:20 Blood Culture - Preliminary Blood No Growth after 24 hours 06/26/21 20:03 Blood Culture - Preliminary Blood No Growth after 24 hours Assessment and Plan Assessment: 1. Acute kidney injury prerenal currently improving with IV hydration 2. Non-gap metabolic acidosis associated with renal failure. No diarrhea reported. Started on IV bicarb 3. Recent urinary tract infection 4. Chronic kidney disease stage IIIB baseline creatinine about 1.5. Atrophic right kidney. The patient is noted to have 2+ protein. This will be further evaluated as outpatient. 5. History of recurrent aspiration pneumonia Plan: Continue IV bicarb. Repeat labs in a.m. Agree with CT of the chest.
[2021-06-28] MEDS: BUTALB/APAP/CAFF 50-325-40MG TAB PO PRN (14:48)
[2021-06-28] MEDS: CEFEPIME 1 GM in SODIUM CHLORIDE 0.9% 50 ML IVPB SCH (17:23)
[2021-06-28 18:45] LABS: Magnesium 2.3 mg/dL (1.5-2.4); Phosphorus 2.6 mg/dL (2.4-5.1)
[2021-06-28] MEDS: ENOXAPARIN 30 MG/0.3 ML SYRINGE SQ SCH (21:04)
[2021-06-28] MEDS: MIRTAZAPINE 45 MG TABLET PO SCH (21:04)
--- NOTE | 2021-06-28 23:20 | P.PN ---
Subjective Progress Note Date: 06/28/21 Principal diagnosis: Pneumonia Patient is a 76-year-old female with a past medical history significant for recurrent pneumonia did have a history recurrent PICC line infe ction with the patient has for nutritional support, presenting to the hospital with feeling weak cough and lower rib cage pain. On today's evaluation that is 06/28/2021, the patient denies having any fever or any chills, the patient is breathing comfortably on room air sitting complaining of pain to the lower rib cage/upper abdominal area nausea but no vomiting and no diarrhea she did have a cough but not bringing up any sputum Objective - Vital Signs Vital signs: Vital Signs Temp 98.8 F 06/28/21 08:00 Pulse 80 06/28/21 11:33 Resp 18 06/28/21 08:00 BP 152/72 06/28/21 08:00 Pulse Ox 97 06/28/21 08:00 Intake & Output 06/27/21 06/28/21 06/28/21 18:59 06:59 18:59 Intake Total 236 240 Balance 236 240 Weight 41.277 kg Intake: Oral 236 240 - Exam GENERAL DESCRIPTION: An elderly female lying in bed in no distress RESPIRATORY SYSTEM: Unlabored breathing , decreased breath sounds at bases HEART: S1 S2 regular rate and rhythm , ABDOMEN: Soft , no tenderness EXTREMITIES: No edema feet - Labs CBC & Chem 7: 06/28/21 06:52 06/28/21 06:52 Labs: Abnormal Lab Results - Last 24 Hours (Table) 06/28/21 06/28/21 06/28/21 Range/Units 06:52 06:52 06:52 RBC 2.98 L (4.10-5.20) X 10*6/uL Hgb 7.7 L (12.0-15.0) g/dL Hct 25.6 L (37.2-46.3) % MCH 25.8 L (27.0-32.0) pg MCHC 30.1 L (32.0-37.0) g/dL RDW 20.5 H (11.5-14.5) % Eosinophils # 0.56 H (0.04-0.35) X 10*3/uL Carbon Dioxide 17.1 L (20.0-27.5) mmol/L BUN 28.2 H (9.0-27.0) mg/dL Creatinine 1.7 H (0.6-1.5) mg/dL Est GFR (CKD-EPI)AfAm 33.6 L (60.0-200.0) Est GFR (CKD-EPI)NonAf 29.0 L (60.0-200.0) Calcium 8.4 L (8.7-10.3) mg/dL Total Bilirubin <0.15 L (0.30-1.20) mg/dL Alkaline Phosphatase 244 H (41-126) U/L C-Reactive Protein 3.60 H (0.00-0.80) mg/dL Total Protein 6.0 L (6.2-8.2) g/dL Albumin 3.6 L (3.8-4.9) g/dL Albumin/Globulin Ratio 1.47 L (1.60-3.17) g/dL Procalcitonin 0.18 H (0.02-0.09) ng/mL Microbiology - Last 24 Hours (Table) 06/26/21 20:20 Blood Culture - Preliminary Blood No Growth after 24 hours 06/26/21 20:03 Blood Culture - Preliminary Blood No Growth after 24 hours 06/26/21 20:17 Urine Culture - Preliminary Urine,Voided Assessment and Plan (1) Persistent pneumonia Current Visit: Yes Status: Acute Code(s): J18.9 - PNEUMONIA, UNSPECIFIED ORGANISM SNOMED Code(s): 333821869 Plan: 1patient is in the hospital with weakness lower rib cage pain in this patient did have a abnormal chest x-ray and CT showing evidence of consolidation c oncerning for atypical infection versus recurrent aspiration pneumonia 2-patient will benefit from bronchoscopy in the culture as well as biopsy 3-continue with cefepime Aspiration precautions Time with Patient: Less than 30
[2021-06-29] MEDS: PROCHLORPERAZINE 5 MG TAB PO PRN (00:41)
[2021-06-29] MEDS: HYDROmorphone 0.5 MG/0.5 ML SYRINGE IVP PRN ×6 (01:40→22:32)
[2021-06-29] MEDS: CEFEPIME 1 GM in SODIUM CHLORIDE 0.9% 50 ML IVPB SCH ×2 (05:36→17:05)
[2021-06-29] MEDS: LEVOTHYROXINE 100 MCG TAB PO SCH (05:36)
[2021-06-29] MEDS: SYMBICORT 160-4.5 MCG INHALER INHALATION SCH ×2 (07:12→19:58)
[2021-06-29] MEDS: IPRATROPIUM-ALBUTEROL 3 ML NEB INHALATION SCH ×4 (07:12→19:58)
[2021-06-29 07:28] LABS: ALT 19 U/L (4-34); AST 23 U/L (14-36); African American GFR (CKD) 38 (>60 ml/min/1.73 sqM); Albumin 3.3 g/dL (3.5-5.0); Albumin/Globulin Ratio 1.1; Alkaline Phosphatase 203 U/L (38-126); Anion Gap 2 mmol/L; Blood Urea Nitrogen 30 mg/dL (7-17); Calcium 8.2 mg/dL (8.4-10.2); Carbon Dioxide 31 mmol/L (22-30); Chloride 104 mmol/L (98-107); Glucose 120 mg/dL (74-99); Non-African American GFR(CKD) 33 (>60 ml/min/1.73 sqM); Phosphorus 2.8 mg/dL (2.5-4.5); Potassium 4.2 mmol/L (3.5-5.1); Sodium 137 mmol/L (137-145); Total Bilirubin 0.4 mg/dL (0.2-1.3); Total Protein 6.3 g/dL (6.3-8.2)
[2021-06-29] MEDS: ALPRAZolam 0.25 MG TAB PO PRN ×3 (07:54→20:35)
[2021-06-29] MEDS: PANTOPRAZOLE 40 MG TABLET PO SCH ×2 (07:55→17:05)
[2021-06-29] MEDS: oxyCODONE-APAP 7.5-325MG 1 EACH TAB PO SCH ×2 (07:55→20:33)
[2021-06-29] MEDS: BUTALB/APAP/CAFF 50-325-40MG TAB PO PRN ×2 (07:55→20:58)
[2021-06-29] MEDS: ASPIRIN 81 MG PO SCH (07:55)
[2021-06-29] MEDS: FUROSEMIDE 20 MG TAB PO SCH (07:55)
[2021-06-29] MEDS: busPIRone HCl 10 MG TAB PO SCH ×2 (07:55→20:32)
[2021-06-29] MEDS: hydrOXYzine pamoate 25 MG CAP PO SCH ×3 (07:56→20:35)
[2021-06-29] MEDS: buPROPion XL 300 MG TAB.ER.24H PO SCH (07:56)
[2021-06-29] MEDS: buPROPion XL 150 MG TAB.ER.24H PO SCH (07:56)
[2021-06-29] MEDS: LORATADINE 10 MG TAB PO SCH (07:56)
[2021-06-29] MEDS: THIAMINE 100 MG TAB PO SCH (07:56)
[2021-06-29] MEDS: FERROUS SULFATE 325 MG TAB PO SCH (07:56)
[2021-06-29 08:41] LABS: Basophils # (A) 0.04 X 10*3/uL (0.00-0.10); Basophils % (A) 0.4 %; Eosinophils # (A) 0.52 X 10*3/uL (0.04-0.35); Eosinophils % (A) 5.8 %; HCT 24.3 % (37.2-46.3); HGB 7.5 g/dL (12.0-15.0); Immature Grans, Automated 0.3 %; Lymphocytes # (A) 1.51 X 10*3/uL (0.90-5.00); Lymphocytes % (A) 16.7 %; MCH 26.1 pg (27.0-32.0); MCHC 30.9 g/dL (32.0-37.0); MCV 84.7 fL (80.0-97.0); Mean Platelet Volume 10.2 fL (9.5-12.2); Monocytes # (A) 0.94 X 10*3/uL (0.20-1.00); Monocytes % (A) 10.4 %; NRBC Per 100 WBC 0 /100 WBCS (0.0-0.0); Neutrophils # (A) 5.98 X 10*3/uL (1.80-7.70); Neutrophils % (A) 66.4 %; Platelet Count 300 X 10*3/uL (140-440); RBC 2.87 X 10*6/uL (4.10-5.20); RDW 20.3 % (11.5-14.5); WBC 9.02 X 10*3/uL (4.50-10.00)
[2021-06-29] MEDS ORDERED: FAT EMULSION 20% 500 ML in EMPTY BAG 1 BAG IV SCH (09:00)
--- NOTE | 2021-06-29 11:56 | P.PN ---
Subjective Progress Note Date: 06/29/21 Louise Sutton, he is a 76-year-old female who presented to [facility] with a chief complaint of generalized weakness, dehydration was elevated BUN and creatinine and leukocytosis She was evaluated in the emergency room vital examination on presentation revealed a temperature of 98.3 pulse 95 respiration 22 blood pressure 135/89 pulse ox 100% on room air Laboratory data revealed a white blood count of 11.3 hemoglobin 8.8 platelet count 356 sodium 139 potassium 3.9 chloride 106 CO2 18 BUN 47 creatinine 2.37 Testing in the emergency room revealed chest x-ray revealed a right upper lobe a nd left mid lung opacities, EKG was normal Patient was admitted to medical floor for further evaluation and treatment. Patient was recently discharged from [facility] after an admiss ion for pneumonia and sepsis with positive blood culture patient is followed by Dr. Gregorio then was maintained on IV cefepime at home. Patient also has multiple medical problem and is maintained on TPN at home. On 06/28/2021 patient is alert and oriented 3. Antibiotics have been adjusted to Maxipime per infectious disease. Computed tomography scan of the chest also ordered. This time patient complains of generalized pain. Patient denies nausea vomiting or diarrhea. Patient denies any urinary burning or frequency. White blood cell improving to 7.8. Creatinine 2.09 and bun 39 On 06/29/2021 patient was seen and examined on the medical floor she is alert and oriented 3 in no apparent distress, she denies any new complaints vital exam reveals a temperature of 97.4 pulse 105 respiration 16 blood pressure 168/89 pulse ox 98% on room air, laboratory data reveals a white blood count of 9.0 to hemoglobin 7.5 platelet count 300 sodium 137 potassium 4.2 chloride 104 CO2 31 BUN 30 creatinine 1.55 computed tomography scan of the chest was ordered by Dr. Gregorio and reveals persistent pulmonary nodules and thick areas of pulmonary consultation with a newly seen areas of groundglass opacities. At this time repeat swallow evaluation was ordered and pulmonary consultation was requested Objective - Vital Signs Vital signs: Vital Signs Temp 97.4 F L 06/29/21 08:00 Pulse 88 06/29/21 11:03 Resp 16 06/29/21 08:00 BP 168/89 06/29/21 08:00 Pulse Ox 98 06/29/21 08:00 Intake & Output 06/28/21 06/29/21 06/29/21 18:59 06:59 18:59 Intake Total 598 90 Balance 598 90 Weight 41.277 kg Intake: Oral 598 90 Other: # Voids 2 2 # Bowel Movements 0 - Exam In general patient is alert and oriented x 3 in no distress HEENT head normocephalic and atraumatic Neck is supple no JVD no goiter no lymphadenopathy no carotid bruit Chest examination is clear to auscultation no crackles no wheezing Cardiac exam reveals regular heart sounds S1 and S2 no gallops no murmurs Abdomen is soft nontender no organomegaly with normal bowel sounds Extremity exam reveals no edema no cyanosis or clubbing Neurological examination reveals no gross focal deficits - Labs CBC & Chem 7: 06/29/21 06:21 06/29/21 06:21 Labs: Abnormal Lab Results - Last 24 Hours (Table) 06/28/21 06/28/21 06/28/21 Range/Units 06:52 06:52 06:52 RBC 2.98 L (4.10-5.20) X 10*6/uL Hgb 7.7 L (12.0-15.0) g/dL Hct 25.6 L (37.2-46.3) % MCH 25.8 L (27.0-32.0) pg MCHC 30.1 L (32.0-37.0) g/dL RDW 20.5 H (11.5-14.5) % Eosinophils # 0.56 H (0.04-0.35) X 10*3/uL Carbon Dioxide 17.1 L (20.0-27.5) mmol/L BUN 28.2 H (9.0-27.0) mg/dL Creatinine 1.7 H (0.6-1.5) mg/dL Est GFR (CKD-EPI)AfAm 33.6 L (60.0-200.0) Est GFR (CKD-EPI)NonAf 29.0 L (60.0-200.0) Glucose (74-99) mg/dL Calcium 8.4 L (8.7-10.3) mg/dL Total Bilirubin <0.15 L (0.30-1.20) mg/dL Alkaline Phosphatase 244 H (41-126) U/L C-Reactive Protein 3.60 H (0.00-0.80) mg/dL Total Protein 6.0 L (6.2-8.2) g/dL Albumin 3.6 L (3.8-4.9) g/dL Albumin/Globulin Ratio 1.47 L (1.60-3.17) g/dL Procalcitonin 0.18 H (0.02-0.09) ng/mL 06/29/21 06/29/21 Range/Units 06:21 06:21 RBC 2.87 L (4.10-5.20) X 10*6/uL Hgb 7.5 L (12.0-15.0) g/dL Hct 24.3 L (37.2-46.3) % MCH 26.1 L (27.0-32.0) pg MCHC 30.9 L (32.0-37.0) g/dL RDW 20.3 H (11.5-14.5) % Eosinophils # 0.52 H (0.04-0.35) X 10*3/uL Carbon Dioxide 31 H (20.0-27.5) mmol/L BUN 30 H (9.0-27.0) mg/dL Creatinine 1.55 H (0.6-1.5) mg/dL Est GFR (CKD-EPI)AfAm (60.0-200.0) Est GFR (CKD-EPI)NonAf (60.0-200.0) Glucose 120 H (74-99) mg/dL Calcium 8.2 L (8.7-10.3) mg/dL Total Bilirubin (0.30-1.20) mg/dL Alkaline Phosphatase 203 H (41-126) U/L C-Reactive Protein (0.00-0.80) mg/dL Total Protein (6.2-8.2) g/dL Albumin 3.3 L (3.8-4.9) g/dL Albumin/Globulin Ratio (1.60-3.17) g/dL Procalcitonin (0.02-0.09) ng/mL Microbiology - Last 24 Hours (Table) 06/26/21 20:20 Blood Culture - Preliminary Blood No Growth after 48 hours 06/26/21 20:03 Blood Culture - Preliminary Blood No Growth after 48 hours 06/26/21 20:17 Urine Culture - Final Urine,Voided Assessment and Plan Plan: Dehydration with acute kidney injury Worsening leukocytosis Recent admission was sepsis and positive blood culture Underlying history of hypothyroidism Underlying history of chronic back pain with history of laminectomy Underlying history of severe protein calorie malnutrition maintained on TPN Underlying history of recurrent aspiration pneumonia Previous history of pancreatitis Previous history of bowel obstruction DVT prophylaxis Lovenox. GI prophylaxis Protonix Infectious disease and nephrology services are following Maintained on IV antibiotics Maintained on IV fluid Computed tomography scan of the chest ordered Repeat labs ordered
--- NOTE | 2021-06-29 13:26 | P.PN ---
Subjective Patient is seen for follow-up for acute kidney injury and top of chronic kidney disease. she is currently maintained on IV fluids. Overall she states she is feeling better. Started on TPN Serum creatinine down to 1.5 Acidosis is improved Objective - Vital Signs Vital signs: Vital Signs Temp 97.4 F L 06/29/21 08:00 Pulse 88 06/29/21 11:03 Resp 16 06/29/21 08:00 BP 168/89 06/29/21 08:00 Pulse Ox 98 06/29/21 08:00 Intake & Output 06/28/21 06/29/21 06/29/21 18:59 06:59 18:59 Intake Total 598 90 Balance 598 90 Weight 41.277 kg Intake: Oral 598 90 Other: # Voids 2 2 # Bowel Movements 0 - Exam Patient is awake comfortable. Not in any acute distress. Abdomen is soft nontender Examination of lower extremities shows no evidence of edema. [employer] exam grossly intact - Labs CBC & Chem 7: 06/29/21 06:21 06/29/21 06:21 Labs: Abnormal Lab Results - Last 24 Hours (Table) 06/29/21 06/29/21 Range/Units 06:21 06:21 RBC 2.87 L (4.10-5.20) X 10*6/uL Hgb 7.5 L (12.0-15.0) g/dL Hct 24.3 L (37.2-46.3) % MCH 26.1 L (27.0-32.0) pg MCHC 30.9 L (32.0-37.0) g/dL RDW 20.3 H (11.5-14.5) % Eosinophils # 0.52 H (0.04-0.35) X 10*3/uL Carbon Dioxide 31 H (22-30) mmol/L BUN 30 H (7-17) mg/dL Creatinine 1.55 H (0.52-1.04) mg/dL Glucose 120 H (74-99) mg/dL Calcium 8.2 L (8.4-10.2) mg/dL Alkaline Phosphatase 203 H (38-126) U/L Albumin 3.3 L (3.5-5.0) g/dL Microbiology - Last 24 Hours (Table) 06/26/21 20:20 Blood Culture - Preliminary Blood No Growth after 48 hours 06/26/21 20:03 Blood Culture - Preliminary Blood No Growth after 48 hours 06/26/21 20:17 Urine Culture - Final Urine,Voided Assessment and Plan Assessment: 1. Acute kidney injury prerenal currently improving with IV hydration 2. Non-gap metabolic acidosis associated with renal failure. No diarrhea reported. Maintained on IV bicarb 3. Recent urinary tract infection 4. Chronic kidney disease stage IIIB baseline creatinine about 1.5. Atrophic right kidney. The patient is noted to have 2+ protein. This will be further evaluated as outpatient. 5. History of recurrent aspiration pneumonia Plan: DC IV bicarb Repeat labs in a.m. Agree with CT of the chest.
[2021-06-29] MEDS: DEXTROSE 5% IN WATER 1,000 ML with SODIUM BICARB (1 MEQ/ML) 150 ML IV SCH (13:28)
--- NOTE | 2021-06-29 14:39 | P.CNPUL ---
History of Present Illness Consult date: 06/29/21 Requesting physician: Palmer Desir Reason for consult: dyspnea, abnormal CXR/CT Chief complaint: Shortness of breath, cough, congestion History of present illness: This is a very pleasant 76-year-old female patient well known to our practice. She has a history of chronic obstructive pulmonary disease with multiple COPD exacerbations and admissions, chronic aspiration pneumonia, fever is previous gastrectomy and receives TPN in the outpatient setting, hypothyroidism, anorexia/cachexia syndrome. She has chronic changes in her chest x-ray including right upper lobe and left midlung. She follows with ID services and has a port in for frequent IV antibiotics. Most recently in February she had MRSA in her bronchial wash. She's had multiple admissions for recurrent pneumonias. She was just recently here for 13 days and was home for 7 days and presented again with similar symptoms or shortness breath, cough congestion. She also was found to have abnormal out patient labs. Chest x-ray revealed moderate confluent opacities in the right upper and left midlung calixto. PICC line in place. No significant change compared to previous chest x-ray 06/07/2021. CAT scan revealed persistent pulmonary nodules and thick areas of pulmonary consolidation/soft tissue thickening demonstrating minimal changes described above. New areas of groundglass opacities. Suspect persistent extensive chronic infection, atypical infection, neoplasm not totally excluded. Blood cultures reveal no growth. Urine cultures reveal no growth. White count 9.0. Hemoglobin 7.5. Sodium 137. Potassium 4.2. BUN 30. Creatinine 1.55. She's been initiated on DuoNeb inhalations, Symbicort, antibiotics in the form of cefepime. Lovenox for DVT prophylaxis. She is seen today in consultation on the regular medical floor. She is currently sitting up in bed. Awake and alert in no acute distress. Maintaining good O2 saturations in the 90s on room air. She's been afebrile. Hemodynamically stable. Review of Systems REVIEW OF SYSTEMS: CONSTITUTIONAL: Denies any recent significant weight loss or weight gain. EYES: Denies change in vision. EARS, NOSE, MOUTH, THROAT: Denies headaches, denies sore throat. CARDIOVASCULAR: Denies chest pain, palpitations or syncopal episodes. RESPIRATORY: Positive for shortness of breath, cough, congestion no hemoptysis. GASTROINTESTINAL: Denies change in appetite, denies abdominal pain GENITOURINARY: Denies hematuria, denies infections. MUSKULOSKELETAL: Denies pain, denies swelling. INTEGUMENTARY: Denies rash, denies eczema. NEUROLOGICAL: Denies recent memory loss, no recent seizure activity. PSYCHIATRIC: Denies anxiety, denies depression. HEMATOLOGIC/LYMPHATIC: Denies anemia, denies enlarged lymph nodes. Past Medical History Past Medical History: Asthma, COPD, CVA/TIA, GERD/Reflux, Memory Impairment, Osteoarthritis (OA), Pneumonia, Renal Disease, Respiratory Disorder, Thyroid Disorder Additional Past Medical History / Comment(s): Aspiration, pneumonias, covid pneumonia, protein calorie malnutrition, pt is on TPN/ manage thru [facility], chronic anemia, gastric ulcers/PUD, pancreatitis, bowel obstruction/surgery, constipation, CKD stage IV, TIA, chronic migraines, chronic back/cervical pain/spinal stenosis, hypothyroid, hyponatremia. History of Any Multi-Drug Resistant Organisms: Other MDRO Past Surgical History: Back Surgery, Bowel Resection, Hysterectomy, Joint Replacement Additional Past Surgical History / Comment(s): LOWER BACK SURGERY lamenectomy/discetomy then had a revison of that sx. 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, nasal sx d/t broken nose, colonoscopy/egd, PAIN CLINIC PROCEDURES, PORT A CATH INSERTION, LT ADEOLA Past Anesthesia/Blood Transfusion Reactions: No Reported Reaction Additional Past Anesthesia/Blood Transfusion Reaction / Comment(s): PT RECIEVED BLOOD TRANSFUSIONS AFTER STOMACH SURGERY Past Psychological History: Anxiety, Depression, Panic Disorder Additional Psychological History / Comment(s): Pt resides alone in an apartment She states she has a medical legal guardian, Rosario Oneal. She uses a walker at times to ambulate. She no longer drives, her food scientist Jonn Parnell was driving her but has been having health issues so her LG drives her if needed. She has [facility] home care for TPN infusions. She has ACT visits twice a week to check on her mental health. She recieves her meds in blister packs. Smoking Status: Never smoker Past Alcohol Use History: None Reported Past Drug Use History: None Reported - Past Family History Father Family Medical History: Cancer, Coronary Artery Disease (CAD) Additional Family Medical History / Comment(s): FATHER HAD BLADDER AND KIDNEY CANCER. FATHER HAD TB WHEN HE WAS A CHILD .FATHER AT AGE 87. Mother Family Medical History: Cancer Additional Family Medical History / Comment(s): MOTHER AT AGE 58 OF OVARIAN CANCER. Medications and Allergies Home Medications Medication Instructions Recorded Confirmed Type Ferrous Sulfate [Iron (65 MG 325 mg PO DAILY@1200 11/06/15 06/26/21 History Elemental)] calcitrioL [Calcitriol] 1 mcg PO MOWEFR 06/07/19 06/26/21 History busPIRone HCL [Buspar] 30 mg PO BID 04/14/20 06/26/21 History Pantoprazole Sodium [Protonix] 40 mg PO BID 30 Days #60 tablet. 04/27/20 06/26/21 Rx Butalb/APAP/Caff 50-325-40Mg 1 tab PO BID PRN 06/30/20 06/26/21 History [Fioricet 50-325-40] buPROPion XL [Wellbutrin XL] 150 mg PO DAILY 11/04/20 06/26/21 History Furosemide [Lasix] 20 mg PO DAILY #6 tab 12/13/20 06/26/21 Rx fentaNYL 75MCG/HR PATCH [Duragesic 1 patch TRANSDERM Q72H 3 Days #3 12/13/20 06/26/21 Rx 75MCG/HR] patch Tpn 1 dose IV DAILY@1900 02/20/21 06/26/21 History buPROPion XL [Wellbutrin XL] 300 mg PO DAILY 02/20/21 06/26/21 History Albuterol Sulfate [Albuterol 2 puff INHALATION RT-Q6H PRN 04/07/21 06/26/21 History Sulfate Hfa] Budesonide/Formoterol Fumarate 2 puff INHALATION RT-BID 04/07/21 06/26/21 History [Symbicort 160-4.5 Mcg Inhaler] Loratadine [Claritin] 10 mg PO DAILY 04/07/21 06/26/21 History Mirtazapine [Remeron] 45 mg PO HS 04/07/21 06/26/21 History SUMAtriptan succinate [Imitrex] 50 mg PO BID PRN 05/04/21 06/26/21 History Thiamine [Vitamin B-1] 100 mg PO DAILY 05/04/21 06/26/21 History Aspirin EC [Ecotrin Low Dose] 81 mg PO DAILY 05/12/21 06/26/21 History hydrOXYzine pamoate [Vistaril] 50 mg PO TID 06/06/21 06/26/21 History oxyCODONE-APAP 7.5-325MG [Percocet 1 tab PO BID 06/06/21 06/26/21 History 7.5-325 mg] Levothyroxine Sodium [Synthroid] 100 mcg PO DAILY@0630 30 Days #30 06/19/21 06/26/21 Rx tab Famotidine [Pepcid] 20 mg PO DAILY PRN 06/26/21 06/26/21 History Allergies Allergy/AdvReac Type Severity Reaction Status Date / Time mold Allergy Itching Verified 06/26/21 20:25 denosumab [From Prolia] AdvReac SEVERE Verified 06/26/21 20:25 CALCIUM LOSS morphine AdvReac Confusion Verified 06/26/21 20:25 DUST Allergy Itching Uncoded 06/26/21 20:25 Physical Exam Vitals: Vital Signs Temp Pulse Pulse Resp BP Pulse Ox 06/29/21 13:58 98.5 F 105 H 16 158/77 98 06/29/21 11:03 88 06/29/21 10:51 88 06/29/21 08:00 97.4 F L 105 H 16 168/89 98 06/29/21 01:14 98.2 F 94 18 142/74 98 06/28/21 20:55 105 H 18 06/28/21 20:10 94 06/28/21 19:59 92 06/28/21 19:28 98.2 F 96 18 129/69 100 06/28/21 16:06 92 06/28/21 15:52 88 Intake and Output 06/28/21 06/29/21 06/29/21 22:59 06:59 14:59 Intake Total 118 180 Balance 118 180 Intake: Oral 118 180 Other: # Voids 2 2 # Bowel Movements 0 GENERAL EXAM: Alert, very pleasant, frail, cachectic 76-year-old female patient, on room air, comfortable in no apparent distress. HEAD: Normocephalic. EYES: Normal reaction of pupils, equal size. NOSE: Clear with pink turbinates. THROAT: No erythema or exudates. NECK: No masses, no JVD. CHEST: No chest wall deformity. LUNGS: Equal air entry with bilateral scattered rhonchi. CVS: S1 and S2 normal with no audible murmur, regular rhythm. ABDOMEN: No hepatosplenomegaly, normal bowel sounds, no guarding or rigidity. SPINE: No scoliosis or deformity SKIN: No rashes CENTRAL NERVOUS SYSTEM: No focal deficits, tone is normal in all 4 extremities. EXTREMITIES: PICC line in place. There is no peripheral edema. No clubbing, no cyanosis. Peripheral pulses are intact. Results - Laboratory Findings CBC and BMP: 06/29/21 06:21 06/29/21 06:21 Abnormal lab findings: Abnormal Labs 06/26/21 06/26/21 06/26/21 20:03 20:03 20:17 WBC 11.3 H RBC 3.25 L Hgb 8.8 L Hct 28.6 L MCH MCHC 30.7 L RDW 19.9 H Neutrophils # 7.9 H Eosinophils # Chloride Carbon Dioxide 18 L BUN 47 H Creatinine 2.37 H Est GFR (CKD-EPI)AfAm Est GFR (CKD-EPI)NonAf Glucose Calcium Magnesium Total Bilirubin Alkaline Phosphatase 275 H C-Reactive Protein Total Protein Albumin Albumin/Globulin Ratio Procalcitonin TSH 8.140 H Urine Protein 2+ H Urine Blood Moderate H Ur Leukocyte Esterase Moderate H Urine WBC 24 H Amorphous Sediment Occasional H 06/27/21 06/27/21 06/28/21 06:56 06:56 06:52 WBC RBC 3.39 L 2.98 L Hgb 9.3 L 7.7 L Hct 31.0 L 25.6 L MCH 25.8 L MCHC 30.1 L 30.1 L RDW 19.7 H 20.5 H Neutrophils # Eosinophils # 0.56 H Chloride 113 H Carbon Dioxide 14 L BUN 39 H Creatinine 2.09 H Est GFR (CKD-EPI)AfAm Est GFR (CKD-EPI)NonAf Glucose Calcium 8.3 L Magnesium 2.5 H Total Bilirubin Alkaline Phosphatase C-Reactive Protein Total Protein Albumin Albumin/Globulin Ratio Procalcitonin TSH Urine Protein Urine Blood Ur Leukocyte Esterase Urine WBC Amorphous Sediment 06/28/21 06/28/21 06/29/21 06:52 06:52 06:21 WBC RBC Hgb Hct MCH MCHC RDW Neutrophils # Eosinophils # Chloride Carbon Dioxide 17.1 L 31 H BUN 28.2 H 30 H Creatinine 1.7 H 1.55 H Est GFR (CKD-EPI)AfAm 33.6 L Est GFR (CKD-EPI)NonAf 29.0 L Glucose 120 H Calcium 8.4 L 8.2 L Magnesium Total Bilirubin <0.15 L Alkaline Phosphatase 244 H 203 H C-Reactive Protein 3.60 H Total Protein 6.0 L Albumin 3.6 L 3.3 L Albumin/Globulin Ratio 1.47 L Procalcitonin 0.18 H TSH Urine Protein Urine Blood Ur Leukocyte Esterase Urine WBC Amorphous Sediment 06/29/21 06:21 WBC RBC 2.87 L Hgb 7.5 L Hct 24.3 L MCH 26.1 L MCHC 30.9 L RDW 20.3 H Neutrophils # Eosinophils # 0.52 H Chloride Carbon Dioxide BUN Creatinine Est GFR (CKD-EPI)AfAm Est GFR (CKD-EPI)NonAf Glucose Calcium Magnesium Total Bilirubin Alkaline Phosphatase C-Reactive Protein Total Protein Albumin Albumin/Globulin Ratio Procalcitonin TSH Urine Protein Urine Blood Ur Leukocyte Esterase Urine WBC Amorphous Sediment - Diagnostic Findings Chest x-ray: image reviewed CT scan - chest: image reviewed Assessment and Plan Assessment: 1 Acute on chronic renal failure 2 Non-anion gap metabolic acidosis secondary to acute renal failure maintained on IV bicarb 3 Recent urinary tract infection 4 Chronic kidney disease with atrophic right kidney 5 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 Maintained on TPN in the outpatient setting 6 History of frequent aspiration pneumonias and MRSA pneumonia with some chronic right upper lung and left midlung changes 7 Gastroesophageal reflux disease. 8 History of hypothyroidism. 9 History of migraine cephalgia. 10 History of pancreatitis. Plan: The patient was seen and evaluated Chest x-ray, CAT scan and labs reviewed Stable and on room air Continued on cefepime Continued on TPN PICC line placed 06/17/2021 May need subacute rehabilitation due to frequent readmissions I have personally seen and examined the patient, performed the documentation and the assessment and plan as written. Number of minutes spent on the visit: 20.
[2021-06-29] MEDS ORDERED: 1: MVI, ADULT NO.4 WITH VIT K 10 ML, TRACE (CONC-1ML/DOSE) 1 ML, CALCIUM GLUCONATE 1 GM, IV SCH ×7 (16:00)
[2021-06-29] MEDS: MIRTAZAPINE 45 MG TABLET PO SCH (20:33)
[2021-06-29] MEDS: ENOXAPARIN 30 MG/0.3 ML SYRINGE SQ SCH (20:33)
--- NOTE | 2021-06-29 23:09 | P.PN ---
Subjective Progress Note Date: 06/29/21 Principal diagnosis: Pneumonia Patient is a 76-year-old female with a past medical history significant for recurrent pneumonia did have a history recurrent PICC line infe ction with the patient has for nutritional support, presenting to the hospital with feeling weak cough and lower rib cage pain. On today's evaluation that is 06/29/2021, the patient remains to be afebrile, the patient is breathing comfortably on room air, the patient is still complaining of pain to the lower rib cage/upper abdominal area, the patient did have some nausea but no vomiting and no diarrhea she did have a cough but not bringing up any sputum Objective - Vital Signs Vital signs: Vital Signs Temp 98.5 F 06/29/21 13:58 Pulse 90 06/29/21 15:31 Resp 16 06/29/21 13:58 BP 158/77 06/29/21 13:58 Pulse Ox 98 06/29/21 13:58 Intake & Output 06/28/21 06/29/21 06/29/21 18:59 06:59 18:59 Intake Total 598 180 Balance 598 180 Weight 41.277 kg Intake: Oral 598 180 Other: # Voids 2 2 # Bowel Movements 0 - Exam GENERAL DESCRIPTION: An elderly female lying in bed in no distress RESPIRATORY SYSTEM: Unlabored breathing , decreased breath sounds at bases HEART: S1 S2 regular rate and rhythm , ABDOMEN: Soft , no tenderness EXTREMITIES: No edema feet - Labs CBC & Chem 7: 06/29/21 06:21 06/29/21 06:21 Labs: Abnormal Lab Results - Last 24 Hours (Table) 06/29/21 06/29/21 Range/Units 06:21 06:21 RBC 2.87 L (4.10-5.20) X 10*6/uL Hgb 7.5 L (12.0-15.0) g/dL Hct 24.3 L (37.2-46.3) % MCH 26.1 L (27.0-32.0) pg MCHC 30.9 L (32.0-37.0) g/dL RDW 20.3 H (11.5-14.5) % Eosinophils # 0.52 H (0.04-0.35) X 10*3/uL Carbon Dioxide 31 H (22-30) mmol/L BUN 30 H (7-17) mg/dL Creatinine 1.55 H (0.52-1.04) mg/dL Glucose 120 H (74-99) mg/dL Calcium 8.2 L (8.4-10.2) mg/dL Alkaline Phosphatase 203 H (38-126) U/L Albumin 3.3 L (3.5-5.0) g/dL Microbiology - Last 24 Hours (Table) 06/26/21 20:20 Blood Culture - Preliminary Blood No Growth after 48 hours 06/26/21 20:03 Blood Culture - Preliminary Blood No Growth after 48 hours 06/26/21 20:17 Urine Culture - Final Urine,Voided Assessment and Plan (1) Persistent pneumonia Current Visit: Yes Status: Acute Code(s): J18.9 - PNEUMONIA, UNSPECIFIED ORGANISM SNOMED Code(s): 706390560 Plan: 1patient is in the hospital with weakness lower rib cage pain in this patient did have a abnormal chest x-ray and CT showing evidence of consolidation concerning for atypical infection versus recurrent aspiration pneumonia 2-patient to continue with cefepime and Aspiration precautions Time with Patient: Less than 30
[2021-06-30] MEDS: HYDROmorphone 0.5 MG/0.5 ML SYRINGE IVP PRN ×6 (03:28→23:59)
[2021-06-30] MEDS: LEVOTHYROXINE 100 MCG TAB PO SCH (06:13)
[2021-06-30] MEDS: CEFEPIME 1 GM in SODIUM CHLORIDE 0.9% 50 ML IVPB SCH ×2 (06:13→17:51)
[2021-06-30] MEDS: SYMBICORT 160-4.5 MCG INHALER INHALATION SCH ×2 (07:08→19:37)
[2021-06-30] MEDS: IPRATROPIUM-ALBUTEROL 3 ML NEB INHALATION SCH ×4 (07:08→19:37)
[2021-06-30 07:34] LABS: ALT 18 U/L (4-34); AST 23 U/L (14-36); African American GFR (CKD) 36 (>60 ml/min/1.73 sqM); Albumin 3.2 g/dL (3.5-5.0); Alkaline Phosphatase 200 U/L (38-126); Anion Gap 6 mmol/L; Blood Urea Nitrogen 30 mg/dL (7-17); Calcium 8.5 mg/dL (8.4-10.2); Carbon Dioxide 27 mmol/L (22-30); Chloride 103 mmol/L (98-107); Globulin 3.2 g/dL; Glucose 99 mg/dL (74-99); Magnesium 1.9 mg/dL (1.6-2.3); Non-African American GFR(CKD) 32 (>60 ml/min/1.73 sqM); Phosphorus 3.3 mg/dL (2.5-4.5); Potassium 4.6 mmol/L (3.5-5.1); Sodium 136 mmol/L (137-145); Total Bilirubin 0.4 mg/dL (0.2-1.3); Total Protein 6.4 g/dL (6.3-8.2)
[2021-06-30] MEDS: FUROSEMIDE 20 MG TAB PO SCH (08:15)
[2021-06-30] MEDS: buPROPion XL 300 MG TAB.ER.24H PO SCH (08:16)
[2021-06-30] MEDS: buPROPion XL 150 MG TAB.ER.24H PO SCH (08:16)
[2021-06-30] MEDS: PANTOPRAZOLE 40 MG TABLET PO SCH ×2 (08:16→20:03)
[2021-06-30] MEDS: busPIRone HCl 10 MG TAB PO SCH ×2 (08:16→20:03)
[2021-06-30] MEDS: ASPIRIN 81 MG PO SCH (08:16)
[2021-06-30] MEDS: LORATADINE 10 MG TAB PO SCH (08:17)
[2021-06-30] MEDS: THIAMINE 100 MG TAB PO SCH (08:17)
[2021-06-30 09:16] LABS: Basophils # (A) 0.04 X 10*3/uL (0.00-0.10); Basophils % (A) 0.4 %; Eosinophils % (A) 5.5 %; HCT 26.3 % (37.2-46.3); HGB 7.9 g/dL (12.0-15.0); Immature Grans, Automated 0.2 %; Lymphocytes # (A) 1.76 X 10*3/uL (0.90-5.00); Lymphocytes % (A) 19.4 %; MCH 25.8 pg (27.0-32.0); MCV 85.9 fL (80.0-97.0); Monocytes % (A) 12.2 %; NRBC Per 100 WBC 0 /100 WBCS (0.0-0.0); Neutrophils # (A) 5.63 X 10*3/uL (1.80-7.70); Neutrophils % (A) 62.3 %; Platelet Count 297 X 10*3/uL (140-440); RBC 3.06 X 10*6/uL (4.10-5.20); RDW 20.9 % (11.5-14.5); WBC 9.05 X 10*3/uL (4.50-10.00)
[2021-06-30] MEDS: oxyCODONE-APAP 7.5-325MG 1 EACH TAB PO SCH ×2 (09:40→20:02)
[2021-06-30] MEDS: BUTALB/APAP/CAFF 50-325-40MG TAB PO PRN ×2 (10:23→21:59)
[2021-06-30] MEDS: PROCHLORPERAZINE 5 MG TAB PO PRN ×2 (10:24→20:08)
--- NOTE | 2021-06-30 11:01 | P.PN ---
Subjective Progress Note Date: 06/30/21 Louise Sutton, he is a 76-year-old female who presented to [facility] with a chief complaint of generalized weakness, dehydration was elevated BUN and creatinine and leukocytosis She was evaluated in the emergency room vital examination on presentation revealed a temperature of 98.3 pulse 95 respiration 22 blood pressure 135/89 pulse ox 100% on room air Laboratory data revealed a white blood count of 11.3 hemoglobin 8.8 platelet count 356 sodium 139 potassium 3.9 chloride 106 CO2 18 BUN 47 creatinine 2.37 Testing in the emergency room revealed chest x-ray revealed a right upper lobe a nd left mid lung opacities, EKG was normal Patient was admitted to medical floor for further evaluation and treatment. Patient was recently discharged from [facility] after an admiss ion for pneumonia and sepsis with positive blood culture patient is followed by Dr. Gregorio then was maintained on IV cefepime at home. Patient also has multiple medical problem and is maintained on TPN at home. On 06/28/2021 patient is alert and oriented 3. Antibiotics have been adjusted to Maxipime per infectious disease. Computed tomography scan of the chest also ordered. This time patient complains of generalized pain. Patient denies nausea vomiting or diarrhea. Patient denies any urinary burning or frequency. White blood cell improving to 7.8. Creatinine 2.09 and bun 39 On 06/29/2021 patient was seen and examined on the medical floor she is alert and oriented 3 in no apparent distress, she denies any new complaints vital exam reveals a temperature of 97.4 pulse 105 respiration 16 blood pressure 168/89 pulse ox 98% on room air, laboratory data reveals a white blood count of 9.0 to hemoglobin 7.5 platelet count 300 sodium 137 potassium 4.2 chloride 104 CO2 31 BUN 30 creatinine 1.55 computed tomography scan of the chest was ordered by Dr. Gregorio and reveals persistent pulmonary nodules and thick areas of pulmonary consultation with a newly seen areas of groundglass opacities. At this time repeat swallow evaluation was ordered and pulmonary consultation was requested On 06/30/2021 patient is alert and oriented 3. White blood cell 9.05, hemoglobin 7.9, bun 30 and creatinine 1.60. Patient is resting comfortably bed. Patient remains on IV antibiotic cefepime. Pulmonary and infectious disease service is following. At this time patient denies chest pain or shortness breath. Patient reports chronic pain. Patient denies nausea vomiting or diarrhea. Patient denies any urinary burning or frequency Objective - Vital Signs Vital signs: Vital Signs Temp 98.0 F 06/30/21 08:00 Pulse 82 06/30/21 08:00 Resp 18 06/30/21 08:00 BP 154/79 06/30/21 08:00 Pulse Ox 99 06/30/21 08:00 Intake & Output 06/29/21 06/30/21 06/30/21 17:59 06:59 18:59 Intake Total Balance Intake: Oral Other: # Voids 1 - Exam In general patient is alert and oriented x 3 in no distress HEENT head normocephalic and atraumatic Neck is supple no JVD no goiter no lymphadenopathy no carotid bruit Chest examination is clear to auscultation no crackles no wheezing Cardiac exam reveals regular heart sounds S1 and S2 no gallops no murmurs Abdomen is soft nontender no organomegaly with normal bowel sounds Extremity exam reveals no edema no cyanosis or clubbing Neurological examination reveals no gross focal deficits - Labs CBC & Chem 7: 06/30/21 06:37 06/30/21 06:37 Labs: Abnormal Lab Results - Last 24 Hours (Table) 06/30/21 06/30/21 Range/Units 06:37 06:37 RBC 3.06 L (4.10-5.20) X 10*6/uL Hgb 7.9 L (12.0-15.0) g/dL Hct 26.3 L (37.2-46.3) % MCH 25.8 L (27.0-32.0) pg MCHC 30.0 L (32.0-37.0) g/dL RDW 20.9 H (11.5-14.5) % Monocytes # 1.10 H (0.20-1.00) X 10*3/uL Eosinophils # 0.50 H (0.04-0.35) X 10*3/uL Sodium 136 L (137-145) mmol/L BUN 30 H (7-17) mg/dL Creatinine 1.60 H (0.52-1.04) mg/dL Alkaline Phosphatase 200 H (38-126) U/L Albumin 3.2 L (3.5-5.0) g/dL Microbiology - Last 24 Hours (Table) 06/26/21 20:20 Blood Culture - Preliminary Blood No Growth after 72 hours 06/26/21 20:03 Blood Culture - Preliminary Blood No Growth after 72 hours Assessment and Plan Plan: Dehydration with acute kidney injury Worsening leukocytosis. Improving Recent admission was sepsis and positive blood culture Underlying history of hypothyroidism Underlying history of chronic back pain with history of laminectomy Underlying history of severe protein calorie malnutrition maintained on TPN Underlying history of recurrent aspiration pneumonia Previous history of pancreatitis Previous history of bowel obstruction Abnormal computed tomography scan. Pulmonary services have been consulted DVT prophylaxis Lovenox. GI prophylaxis Protonix Infectious disease and nephrology services are following [facility]ashaad service is consulted Maintained on IV antibiotics Maintained on IV fluid Computed tomography scan of the chest ordered Repeat labs ordered Patient maintained on chronic TPN at home
[2021-06-30] MEDS: 1: MVI, ADULT NO.4 WITH VIT K 10 ML, TRACE (CONC-1ML/DOSE) 1 ML, PARENTERAL ELECTROLYTES IV SCH ×4 (11:02)
--- NOTE | 2021-06-30 11:59 | P.PN ---
Subjective Progress Note Date: 06/30/21 This is a very pleasant 76-year-old female patient well known to our practice. She has a history of chronic obstructive pulmonary disease with multiple COPD exacerbations and admissions, chronic aspiration pneumonia, fever is previous gastrectomy and receives TPN in the outpatient setting, hypothyroidism, anorexia/cachexia syndrome. She has chronic changes in her chest x-ray including right upper lobe and left midlung. She follows with ID services and has a port in for frequent IV antibiotics. Most recently in February she had MRSA in her bronchial wash. She's had multiple admissions for recurrent pneumonias. She was just recently here for 13 days and was home for 7 days and presented again with similar symptoms or shortness breath, cough congestion. She also was found to have abnormal out patient labs. Chest x-ray revealed moderate confluent opacities in the right upper and left midlung calixto. PICC line in place. No significant change compared to previous chest x-ray 06/07/2021. CAT scan revealed persistent pulmonary nodules and thick areas of pulmonary consolidation/soft tissue thickening demonstrating minimal changes described above. New areas of groundglass opacities. Suspect persistent extensive chronic infection, atypical infection, neoplasm not totally excluded. Blood cultures reveal no growth. Urine cultures reveal no growth. White count 9.0. Hemoglobin 7.5. Sodium 137. Potassium 4.2. BUN 30. Creatinine 1.55. She's been initiated on DuoNeb inhalations, Symbicort, antibiotics in the form of cefepime. Lovenox for DVT prophylaxis. She is seen today in consultation on the regular medical floor. She is currently sitting up in bed. Awake and alert in no acute distress. Maintaining good O2 saturations in the 90s on room air. She's been afebrile. Hemodynamically stable. The patient is seen today 06/30/2021 in follow-up. She is currently resting comfortably in bed. Awake and alert in no acute distress. Continues to maintain good O2 saturations in the 90s on room air. She's been afebrile. Blood cultures reveal no growth. Urine culture revealed no growth. White count 9.0. Hemoglobin 7.9. Sodium 136. Potassium 4.6. BUN 30. Creatinine 1.60. She is continued on Symbicort, DuoNeb inhalations. Antibiotics in the form of cefepime. Lovenox for DVT prophylaxis. Being nourished with TPN and lipids. Objective - Vital Signs Vital signs: Vital Signs Temp 98.0 F 06/30/21 08:00 Pulse 77 06/30/21 11:21 Resp 18 06/30/21 08:00 BP 154/79 06/30/21 08:00 Pulse Ox 99 06/30/21 08:00 Intake & Output 06/29/21 06/30/21 06/30/21 17:59 06:59 18:59 Intake Total Balance Intake: Oral Other: # Voids 1 - Exam GENERAL EXAM: Alert, very pleasant, frail, cachectic 76-year-old female patient, on room air, comfortable in no apparent distress. HEAD: Normocephalic. EYES: Normal reaction of pupils, equal size. NOSE: Clear with pink turbinates. THROAT: No erythema or exudates. NECK: No masses, no JVD. CHEST: No chest wall deformity. LUNGS: Equal air entry with bilateral scattered rhonchi. CVS: S1 and S2 normal with no audible murmur, regular rhythm. ABDOMEN: No hepatosplenomegaly, normal bowel sounds, no guarding or rigidity. SPINE: No scoliosis or deformity SKIN: No rashes CENTRAL NERVOUS SYSTEM: No focal deficits, tone is normal in all 4 extremities. EXTREMITIES: PICC line in place. There is no peripheral edema. No clubbing, no cyanosis. Peripheral pulses are intact. - Labs CBC & Chem 7: 06/30/21 06:37 06/30/21 06:37 Labs: Abnormal Lab Results - Last 24 Hours (Table) 06/30/21 06/30/21 Range/Units 06:37 06:37 RBC 3.06 L (4.10-5.20) X 10*6/uL Hgb 7.9 L (12.0-15.0) g/dL Hct 26.3 L (37.2-46.3) % MCH 25.8 L (27.0-32.0) pg MCHC 30.0 L (32.0-37.0) g/dL RDW 20.9 H (11.5-14.5) % Monocytes # 1.10 H (0.20-1.00) X 10*3/uL Eosinophils # 0.50 H (0.04-0.35) X 10*3/uL Sodium 136 L (137-145) mmol/L BUN 30 H (7-17) mg/dL Creatinine 1.60 H (0.52-1.04) mg/dL Alkaline Phosphatase 200 H (38-126) U/L Albumin 3.2 L (3.5-5.0) g/dL Microbiology - Last 24 Hours (Table) 06/26/21 20:20 Blood Culture - Preliminary Blood No Growth after 72 hours 06/26/21 20:03 Blood Culture - Preliminary Blood No Growth after 72 hours Assessment and Plan Assessment: 1 Acute on chronic renal failure 2 Non-anion gap metabolic acidosis secondary to acute renal failure 3 Recent urinary tract infection 4 Chronic kidney disease with atrophic right kidney 5 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 Maintained on TPN in the outpatient setting 6 History of frequent aspiration pneumonias and MRSA pneumonia with some chronic right upper lung and left midlung changes 7 Gastroesophageal reflux disease. 8 History of hypothyroidism. 9 History of migraine cephalgia. 10 History of pancreatitis. Plan: The patient was seen and evaluated Stable and on room air May need subacute rehabilitation due to frequent readmissions I have personally seen and examined the patient, performed the documentation and the assessment and plan as written. Number of minutes spent on the visit: 10.
[2021-06-30] MEDS: hydrOXYzine pamoate 25 MG CAP PO SCH ×3 (12:03→20:02)
[2021-06-30] MEDS: FERROUS SULFATE 325 MG TAB PO SCH (12:11)
[2021-06-30 12:56] LABS: Glucose,Whole Blood 125 mg/dL (75-99)
[2021-06-30] MEDS: ALPRAZolam 0.25 MG TAB PO PRN ×2 (13:56→22:54)
--- NOTE | 2021-06-30 16:12 | P.PN ---
Subjective Patient is seen for follow-up for acute kidney injury and top of chronic kidney disease. she is currently maintained on IV fluids. Overall she states she is feeling better. Started on TPN Serum creatinine down to 1.6 Acidosis is improved Objective - Vital Signs Vital signs: Vital Signs Temp 98.0 F 06/30/21 08:00 Pulse 77 06/30/21 11:21 Resp 18 06/30/21 08:00 BP 154/79 06/30/21 08:00 Pulse Ox 99 06/30/21 08:00 Intake & Output 06/29/21 06/30/21 06/30/21 17:59 06:59 18:59 Intake Total Balance Intake: Oral Other: # Voids 1 # Bowel Movements 1 - Exam Patient is awake comfortable. Not in any acute distress. Abdomen is soft nontender Examination of lower extremities shows no evidence of edema. COIL TESTER exam grossly intact - Labs CBC & Chem 7: 06/30/21 06:37 06/30/21 06:37 Labs: Abnormal Lab Results - Last 24 Hours (Table) 06/30/21 06/30/21 06/30/21 Range/Units 06:37 06:37 12:54 RBC 3.06 L (4.10-5.20) X 10*6/uL Hgb 7.9 L (12.0-15.0) g/dL Hct 26.3 L (37.2-46.3) % MCH 25.8 L (27.0-32.0) pg MCHC 30.0 L (32.0-37.0) g/dL RDW 20.9 H (11.5-14.5) % Monocytes # 1.10 H (0.20-1.00) X 10*3/uL Eosinophils # 0.50 H (0.04-0.35) X 10*3/uL Sodium 136 L (137-145) mmol/L BUN 30 H (7-17) mg/dL Creatinine 1.60 H (0.52-1.04) mg/dL POC Glucose (mg/dL) 125 H (75-99) mg/dL Alkaline Phosphatase 200 H (38-126) U/L Albumin 3.2 L (3.5-5.0) g/dL Microbiology - Last 24 Hours (Table) 06/26/21 20:20 Blood Culture - Preliminary Blood No Growth after 72 hours 06/26/21 20:03 Blood Culture - Preliminary Blood No Growth after 72 hours Assessment and Plan Assessment: 1. Acute kidney injury prerenal currently improving with IV hydration 2. Non-gap metabolic acidosis associated with renal failure. No diarrhea reported. Maintained on IV bicarb 3. Recent urinary tract infection 4. Chronic kidney disease stage IIIB baseline creatinine about 1.5. Atrophic right kidney. The patient is noted to have 2+ protein. This will be further evaluated as outpatient. 5. History of recurrent aspiration pneumonia Plan: Continue to encourage increased oral intake Hold Lasix
[2021-06-30 17:30] LABS: Glucose,Whole Blood 144 mg/dL (75-99)
[2021-06-30] MEDS: ENOXAPARIN 30 MG/0.3 ML SYRINGE SQ SCH (20:03)
[2021-06-30] MEDS: MIRTAZAPINE 45 MG TABLET PO SCH (20:08)
[2021-07-01 00:06] LABS: Glucose,Whole Blood 120 mg/dL (75-99)
[2021-07-01] MEDS: HYDROmorphone 0.5 MG/0.5 ML SYRINGE IVP PRN ×5 (04:06→20:30)
[2021-07-01] MEDS: ALPRAZolam 0.25 MG TAB PO PRN ×4 (04:07→22:00)
[2021-07-01] MEDS: PROCHLORPERAZINE 5 MG TAB PO PRN ×3 (04:40→20:32)
[2021-07-01] MEDS: SYMBICORT 160-4.5 MCG INHALER INHALATION SCH ×2 (06:15→19:58)
[2021-07-01] MEDS: IPRATROPIUM-ALBUTEROL 3 ML NEB INHALATION SCH ×4 (06:15→19:58)
[2021-07-01] MEDS: CEFEPIME 1 GM in SODIUM CHLORIDE 0.9% 50 ML IVPB SCH ×2 (06:15→17:53)
[2021-07-01] MEDS: LEVOTHYROXINE 100 MCG TAB PO SCH (06:15)
[2021-07-01 06:21] LABS: Glucose,Whole Blood 92 mg/dL (75-99)
[2021-07-01 06:57] LABS: ALT 18 U/L (4-34); AST 23 U/L (14-36); African American GFR (CKD) 40 (>60 ml/min/1.73 sqM); Albumin 3.4 g/dL (3.5-5.0); Albumin/Globulin Ratio 1.1; Alkaline Phosphatase 203 U/L (38-126); Anion Gap 5 mmol/L; Blood Urea Nitrogen 36 mg/dL (7-17); Calcium 8.9 mg/dL (8.4-10.2); Carbon Dioxide 26 mmol/L (22-30); Chloride 104 mmol/L (98-107); Globulin 3.1 g/dL; Glucose 98 mg/dL (74-99); Magnesium 2.1 mg/dL (1.6-2.3); Non-African American GFR(CKD) 35 (>60 ml/min/1.73 sqM); Phosphorus 2.8 mg/dL (2.5-4.5); Potassium 4.8 mmol/L (3.5-5.1); Sodium 135 mmol/L (137-145); Total Bilirubin 0.4 mg/dL (0.2-1.3); Total Protein 6.5 g/dL (6.3-8.2)
[2021-07-01] MEDS: FUROSEMIDE 20 MG TAB PO SCH (07:34)
[2021-07-01] MEDS: buPROPion XL 300 MG TAB.ER.24H PO SCH (07:34)
[2021-07-01] MEDS: hydrOXYzine pamoate 25 MG CAP PO SCH ×3 (07:34→20:32)
[2021-07-01] MEDS: THIAMINE 100 MG TAB PO SCH (07:34)
[2021-07-01] MEDS: ASPIRIN 81 MG PO SCH (07:34)
[2021-07-01] MEDS: LORATADINE 10 MG TAB PO SCH (07:34)
[2021-07-01] MEDS: PANTOPRAZOLE 40 MG TABLET PO SCH ×2 (07:35→17:53)
[2021-07-01] MEDS: buPROPion XL 150 MG TAB.ER.24H PO SCH (07:36)
[2021-07-01] MEDS: busPIRone HCl 10 MG TAB PO SCH ×2 (07:36→20:31)
[2021-07-01] MEDS: 1: MVI, ADULT NO.4 WITH VIT K 10 ML, TRACE (CONC-1ML/DOSE) 1 ML, PARENTERAL ELECTROLYTES IV SCH ×4 (09:02)
[2021-07-01] MEDS: oxyCODONE-APAP 7.5-325MG 1 EACH TAB PO SCH ×2 (09:07→20:31)
[2021-07-01] MEDS ORDERED: SODIUM PHOSPHATE 10 MMOL in SODIUM CHLORIDE 0.9% 250 ML IVPB ONE (09:15)
[2021-07-01 09:44] LABS: Basophils # (A) 0.05 X 10*3/uL (0.00-0.10); Basophils % (A) 0.7 %; Eosinophils # (A) 0.59 X 10*3/uL (0.04-0.35); Eosinophils % (A) 8.3 %; HCT 27.1 % (37.2-46.3); HGB 8.1 g/dL (12.0-15.0); Immature Grans, Automated 0.3 %; Lymphocytes # (A) 1.76 X 10*3/uL (0.90-5.00); Lymphocytes % (A) 24.9 %; MCH 26.2 pg (27.0-32.0); MCHC 29.9 g/dL (32.0-37.0); MCV 87.7 fL (80.0-97.0); Monocytes # (A) 0.94 X 10*3/uL (0.20-1.00); Monocytes % (A) 13.3 %; NRBC Per 100 WBC 0 /100 WBCS (0.0-0.0); Neutrophils # (A) 3.71 X 10*3/uL (1.80-7.70); Neutrophils % (A) 52.5 %; Platelet Count 294 X 10*3/uL (140-440); RBC 3.09 X 10*6/uL (4.10-5.20); RDW 21.3 % (11.5-14.5); WBC 7.07 X 10*3/uL (4.50-10.00)
[2021-07-01] MEDS: BUTALB/APAP/CAFF 50-325-40MG TAB PO PRN ×2 (10:01→22:00)
--- NOTE | 2021-07-01 11:21 | P.PN ---
Subjective Patient is seen in follow-up for acute kidney injury and chronic kidney disease. Renal function improved. Good urine output. No vomiting or diarrhea. No active complaints at this time. Vital signs are stable. General: Awake and alert. HEENT: Head exam is unremarkable. LUNGS: Breath sounds decreased. HEART: Rate and Rhythm are regular. ABDOMEN: No distention. EXTREMITITES: No edema. Objective - Vital Signs Vital signs: Vital Signs Temp 97.9 F 07/01/21 08:00 Pulse 96 07/01/21 08:00 Resp 16 07/01/21 08:00 BP 171/82 07/01/21 08:00 Pulse Ox 97 07/01/21 08:00 Intake & Output 06/30/21 07/01/21 07/01/21 18:59 06:59 18:59 Intake Total 222 Output Total 1999 Balance 222 -1999 Weight 42.2 kg Intake: Oral 222 Output: Urine 1999 Other: Voiding Method Toilet # Voids 3 1 # Bowel Movements 1 1 - Labs CBC & Chem 7: 07/01/21 06:21 07/01/21 06:21 Labs: Abnormal Lab Results - Last 24 Hours (Table) 06/30/21 06/30/21 07/01/21 Range/Units 12:54 17:29 00:04 RBC (4.10-5.20) X 10*6/uL Hgb (12.0-15.0) g/dL Hct (37.2-46.3) % MCH (27.0-32.0) pg MCHC (32.0-37.0) g/dL RDW (11.5-14.5) % Eosinophils # (0.04-0.35) X 10*3/uL Sodium (137-145) mmol/L BUN (7-17) mg/dL Creatinine (0.52-1.04) mg/dL POC Glucose (mg/dL) 125 H 144 H 120 H (75-99) mg/dL Alkaline Phosphatase (38-126) U/L Albumin (3.5-5.0) g/dL 07/01/21 07/01/21 Range/Units 06:21 06:21 RBC 3.09 L (4.10-5.20) X 10*6/uL Hgb 8.1 L (12.0-15.0) g/dL Hct 27.1 L (37.2-46.3) % MCH 26.2 L (27.0-32.0) pg MCHC 29.9 L (32.0-37.0) g/dL RDW 21.3 H (11.5-14.5) % Eosinophils # 0.59 H (0.04-0.35) X 10*3/uL Sodium 135 L (137-145) mmol/L BUN 36 H (7-17) mg/dL Creatinine 1.49 H (0.52-1.04) mg/dL POC Glucose (mg/dL) (75-99) mg/dL Alkaline Phosphatase 203 H (38-126) U/L Albumin 3.4 L (3.5-5.0) g/dL Microbiology - Last 24 Hours (Table) 06/26/21 20:20 Blood Culture - Preliminary Blood No Growth after 96 hours 06/26/21 20:03 Blood Culture - Preliminary Blood No Growth after 96 hours Assessment and Plan Plan: Assessment: 1. Acute kidney injury mostly prerenal secondary to hypovolemia. Improved with IV hydration. Creatinine 1.49 today. 2. Metabolic acidosis secondary to acute kidney injury. Improved. Status post IV bicarb. 3. Chronic kidney disease stage IIIB with baseline creatinine near 1.5. Atrophic right kidney. UA from last month showed no proteinuria. She did have proteinuria at this admission. Will monitor outpatient. 4. History of aspiration pneumonia. 5. Anemia of chronic kidney disease. Rule out iron deficiency. 6. Hypertension with chronic kidney disease. Plan: Encouraged oral intake. Stop Lasix. No evidence of volume overload. Check iron studies. Add amlodipine 5 mg once daily. Hold for systolic blood pressure less than 120. Patient is interested in getting a PEG tube if possible rather than receiving TPN every night. She will follow-up with surgery outpatient.
[2021-07-01] MEDS: FERROUS SULFATE 325 MG TAB PO SCH (12:04)
[2021-07-01] MEDS: amLODIPine 5 MG TAB PO SCH (12:05)
[2021-07-01 12:57] LABS: Glucose,Whole Blood 109 mg/dL (75-99)
--- NOTE | 2021-07-01 15:00 | P.PN ---
<Brittany Garcia M - Last Filed: 07/01/21 14:43> Subjective Progress Note Date: 07/01/21 Principal diagnosis: Weakness This is a very pleasant 76-year-old female patient well known to our practice. She has a history of chronic obstructive pulmonary disease with multiple COPD exacerbations and admissions, chronic aspiration pneumonia, fever is previous gastrectomy and receives TPN in the outpatient setting, hypothyroidism, anorexia/cachexia syndrome. She has chronic changes in her chest x-ray including right upper lobe and left midlung. She follows with ID services and has a port in for frequent IV antibiotics. Most recently in February she had MRSA in her bronchial wash. She's had multiple admissions for recurrent pneumonias. She was just recently here for 13 days and was home for 7 days and presented again with similar symptoms or shortness breath, cough congestion. She also was found to have abnormal out patient labs. Chest x-ray revealed moderate confluent opacities in the right upper and left midlung calixto. PICC line in place. No significant change compared to previous chest x-ray 06/07/2021. CAT scan revealed persistent pulmonary nodules and thick areas of pulmonary consolidation/soft tissue thickening demonstrating minimal changes described above. New areas of groundglass opacities. Suspect persistent extensive chronic infection, atypical infection, neoplasm not totally excluded. Blood cultures reveal no growth. Urine cultures reveal no growth. White count 9.0. Hemoglobin 7.5. Sodium 137. Potassium 4.2. BUN 30. Creatinine 1.55. She's been initiated on DuoNeb inhalations, Symbicort, antibiotics in the form of cefepime. Lovenox for DVT prophylaxis. She is seen today in consultation on the regular medical floor. She is currently sitting up in bed. Awake and alert in no acute distress. Maintaining good O2 saturations in the 90s on room air. She's been afebrile. Hemodynamically stable. The patient is seen today 06/30/2021 in follow-up. She is currently resting comfortably in bed. Awake and alert in no acute distress. Continues to maintain good O2 saturations in the 90s on room air. She's been afebrile. Blood cultures reveal no growth. Urine culture revealed no growth. White count 9.0. Hemoglobin 7.9. Sodium 136. Potassium 4.6. BUN 30. Creatinine 1.60. She is continued on Symbicort, DuoNeb inhalations. Antibiotics in the form of cefepime. Lovenox for DVT prophylaxis. Being nourished with TPN and lipids. On 07/01/2021 patient seen in follow-up on medical surgical floor, she is awake and alert, does not appear to be needing acute distress, she is currently on room air, breathing comfortably, lung sounds are positive for some scattered rhonchi, patient states she has occasional cough, no phlegm production, no chest discomfort. She has TPN infusing, she remains on soft oral diet, however there is a concern for recurrent aspiration pneumonitis. Clinically she appears stable, no acute complaints other than some discomfort with deep breathing at the left lower rib margin. Patient is ambulating in the room with her IV pole and tolerating ambulation well. Objective - Vital Signs Vital signs: Vital Signs Temp 97.9 F 07/01/21 08:00 Pulse 78 07/01/21 11:47 Resp 16 07/01/21 08:00 BP 171/82 07/01/21 08:00 Pulse Ox 97 07/01/21 08:00 Intake & Output 06/30/21 07/01/21 07/01/21 18:59 06:59 18:59 Intake Total 222 Output Total 2000 Balance 222 -1999 Weight 42.2 kg Intake: Oral 222 Output: Urine 2000 Other: Voiding Method Toilet # Voids 3 1 # Bowel Movements 1 1 - Exam GENERAL EXAM: Alert, very pleasant, frail-looking 76-year-old white female, ambulating in the room with her IV pole with TPN omfortable in no apparent distress. HEAD: Normocephalic/atraumatic. EYES: Normal reaction of pupils, equal size. Conjunctiva pink, sclera white. NOSE: Clear with pink turbinates. THROAT: No erythema or exudates. NECK: No masses, no JVD, no thyroid enlargement, no adenopathy. CHEST: No chest wall deformity. Symmetrical expansion. LUNGS: Equal air entry with scattered rhonchi CVS: Regular rate and rhythm, normal S1 and S2, no gallops, no murmurs, no rubs ABDOMEN: Soft, nontender. No hepatosplenomegaly, normal bowel sounds, no guarding or rigidity. EXTREMITIES: No clubbing, no edema, no cyanosis, 2+ pulses and upper and lower extremities. MUSCULOSKELETAL: Muscle strength and tone normal. SPINE: No scoliosis or deformity SKIN: No rashes CENTRAL NERVOUS SYSTEM: Alert and oriented -3. No focal deficits, tone is normal in all 4 extremities. PSYCHIATRIC: Alert and oriented -3. Appropriate affect. Intact judgment and insight. - Labs CBC & Chem 7: 07/01/21 06:21 07/01/21 06:21 Labs: Abnormal Lab Results - Last 24 Hours (Table) 06/30/21 07/01/21 07/01/21 Range/Units 17:29 00:04 06:21 RBC (4.10-5.20) X 10*6/uL Hgb (12.0-15.0) g/dL Hct (37.2-46.3) % MCH (27.0-32.0) pg MCHC (32.0-37.0) g/dL RDW (11.5-14.5) % Eosinophils # (0.04-0.35) X 10*3/uL Sodium 135 L (137-145) mmol/L BUN 36 H (7-17) mg/dL Creatinine 1.49 H (0.52-1.04) mg/dL POC Glucose (mg/dL) 144 H 120 H (75-99) mg/dL Alkaline Phosphatase 203 H (38-126) U/L Albumin 3.4 L (3.5-5.0) g/dL 07/01/21 07/01/21 Range/Units 06:21 12:56 RBC 3.09 L (4.10-5.20) X 10*6/uL Hgb 8.1 L (12.0-15.0) g/dL Hct 27.1 L (37.2-46.3) % MCH 26.2 L (27.0-32.0) pg MCHC 29.9 L (32.0-37.0) g/dL RDW 21.3 H (11.5-14.5) % Eosinophils # 0.59 H (0.04-0.35) X 10*3/uL Sodium (137-145) mmol/L BUN (7-17) mg/dL Creatinine (0.52-1.04) mg/dL POC Glucose (mg/dL) 109 H (75-99) mg/dL Alkaline Phosphatase (38-126) U/L Albumin (3.5-5.0) g/dL Microbiology - Last 24 Hours (Table) 06/26/21 20:20 Blood Culture - Preliminary Blood No Growth after 96 hours 06/26/21 20:03 Blood Culture - Preliminary Blood No Growth after 96 hours Assessment and Plan Plan: #1. Acute on chronic renal failure, related to dehydration and ATN, improving with IV hydration #2. Non-anion gap metabolic acidosis secondary to the above, improved #3. Recent urinary tract infection, with a negative urine culture, currently urinary symptom free #4. Chronic kidney disease with atrophic right kidney #5. Anorexia/cachexia syndrome secondary to history of gastrectomy maintained on TPN in the outpatient setting #6. History of frequent aspiration pneumonias and MSSA pneumonia with some chronic right upper lung and left mid lung changes #7. Bacteremia related to Lesly parapsilosis possible source related to MediPort which was removed today on 03/16/2021 #8. History of gastric ulcers status post previous gastrectomy #9. Chronic dysphagia with history of multiple episodes of aspiration pneumonia #10. Chronic TPN infusion for recurrent aspiration pneumonia #11. History of asthmatic bronchitis #12. Chronic pain syndrome #13 Anxiety and depression Plan: Continue current medical treatment Clinically patient does not appear to be in any acute distress Chest x-ray CT of the chest were reviewed by Dr. Womack Patient may need outpatient PET scan for evaluation of possible malignancy or bronchoscopy and biopsies of left lower lobe Patient is being evaluated by general surgery for possible PEG tube insertion We'll continue to follow her clinical course Currently appears to be fairly comfortable, she is maintaining stable O2 saturations on room air Continue current medical treatment I have personally seen and examined the patient, performed the documentation and the assessment and plan as written. Number of minutes spent on the visit: 10 Time with Patient: Less than 30 <Geovanny Womack - Last Filed: 07/01/21 18:18> Objective - Vital Signs Vital signs: Vital Signs Temp 97.5 F L 07/01/21 14:00 Pulse 78 07/01/21 16:08 Resp 17 07/01/21 14:00 BP 106/60 07/01/21 14:00 Pulse Ox 97 07/01/21 14:00 Intake & Output 06/30/21 07/01/21 07/01/21 18:59 06:59 18:59 Intake Total 222 Output Total 1999 Balance 222 -1999 Weight 42.2 kg 42.2 kg Intake: Oral 222 Output: Urine 1999 Other: Voiding Method Toilet # Voids 3 1 4 # Bowel Movements 1 1 - Labs CBC & Chem 7: 07/01/21 06:21 07/01/21 06:21 Labs: Abnormal Lab Results - Last 24 Hours (Table) 07/01/21 07/01/21 07/01/21 Range/Units 00:04 06:21 06:21 RBC 3.09 L (4.10-5.20) X 10*6/uL Hgb 8.1 L (12.0-15.0) g/dL Hct 27.1 L (37.2-46.3) % MCH 26.2 L (27.0-32.0) pg MCHC 29.9 L (32.0-37.0) g/dL RDW 21.3 H (11.5-14.5) % Eosinophils # 0.59 H (0.04-0.35) X 10*3/uL Sodium 135 L (137-145) mmol/L BUN 36 H (7-17) mg/dL Creatinine 1.49 H (0.52-1.04) mg/dL POC Glucose (mg/dL) 120 H (75-99) mg/dL Iron (50-170) ug/dL % Saturation (12.00-45.00) Alkaline Phosphatase 203 H (38-126) U/L Albumin 3.4 L (3.5-5.0) g/dL 07/01/21 07/01/21 07/01/21 Range/Units 06:21 12:56 17:42 RBC (4.10-5.20) X 10*6/uL Hgb (12.0-15.0) g/dL Hct (37.2-46.3) % MCH (27.0-32.0) pg MCHC (32.0-37.0) g/dL RDW (11.5-14.5) % Eosinophils # (0.04-0.35) X 10*3/uL Sodium (137-145) mmol/L BUN (7-17) mg/dL Creatinine (0.52-1.04) mg/dL POC Glucose (mg/dL) 109 H 135 H (75-99) mg/dL Iron 19 L (50-170) ug/dL % Saturation 5.79 L (12.00-45.00) Alkaline Phosphatase (38-126) U/L Albumin (3.5-5.0) g/dL Microbiology - Last 24 Hours (Table) 06/26/21 20:20 Blood Culture - Preliminary Blood No Growth after 96 hours 06/26/21 20:03 Blood Culture - Preliminary Blood No Growth after 96 hours Assessment and Plan Plan: I have personally seen and examined the patient and reviewed the documentation. I performed a joint evaluation with the nurse practitioner in this evaluation was done more than 20 minutes. I fully agree with the documentation above and the plan of care. I reviewed the CAT scan of the chest, but concerned about nodular infiltrates bilaterally have been chronically present. The patient may ultimately need a bronchoscopy and transbronchial biopsies to establish a tissue diagnosis on these abnormalities.
[2021-07-01 15:21] VITALS: BMI 17.0
[2021-07-01 15:29] LABS: % Iron Saturation 5.79 (12.00-45.00); Ferritin 40.9 ng/mL (10.0-291.0)
[2021-07-01 17:44] LABS: Glucose,Whole Blood 135 mg/dL (75-99)
--- NOTE | 2021-07-01 18:23 | P.PN ---
Subjective Progress Note Date: 07/01/21 Louise Sutton, he is a 76-year-old female who presented to [facility] with a chief complaint of generalized weakness, dehydration was elevated BUN and creatinine and leukocytosis She was evaluated in the emergency room vital examination on presentation revealed a temperature of 98.3 pulse 95 respiration 22 blood pressure 135/89 pulse ox 100% on room air Laboratory data revealed a white blood count of 11.3 hemoglobin 8.8 platelet count 356 sodium 139 potassium 3.9 chloride 106 CO2 18 BUN 47 creatinine 2.37 Testing in the emergency room revealed chest x-ray revealed a right upper lobe a nd left mid lung opacities, EKG was normal Patient was admitted to medical floor for further evaluation and treatment. Patient was recently discharged from [facility] after an admiss ion for pneumonia and sepsis with positive blood culture patient is followed by Dr. Gregorio then was maintained on IV cefepime at home. Patient also has multiple medical problem and is maintained on TPN at home. On 06/28/2021 patient is alert and oriented 3. Antibiotics have been adjusted to Maxipime per infectious disease. Computed tomography scan of the chest also ordered. This time patient complains of generalized pain. Patient denies nausea vomiting or diarrhea. Patient denies any urinary burning or frequency. White blood cell improving to 7.8. Creatinine 2.09 and bun 39 On 06/29/2021 patient was seen and examined on the medical floor she is alert and oriented 3 in no apparent distress, she denies any new complaints vital exam reveals a temperature of 97.4 pulse 105 respiration 16 blood pressure 168/89 pulse ox 98% on room air, laboratory data reveals a white blood count of 9.0 to hemoglobin 7.5 platelet count 300 sodium 137 potassium 4.2 chloride 104 CO2 31 BUN 30 creatinine 1.55 computed tomography scan of the chest was ordered by Dr. Gregorio and reveals persistent pulmonary nodules and thick areas of pulmonary consultation with a newly seen areas of groundglass opacities. At this time repeat swallow evaluation was ordered and pulmonary consultation was requested On 06/30/2021 patient is alert and oriented 3. White blood cell 9.05, hemoglobin 7.9, bun 30 and creatinine 1.60. Patient is resting comfortably bed. Patient remains on IV antibiotic cefepime. Pulmonary and infectious disease service is following. At this time patient denies chest pain or shortness breath. Patient reports chronic pain. Patient denies nausea vomiting or diarrhea. Patient denies any urinary burning or frequency On 07/01/2021 patient was seen and examined on the medical floor she is alert and oriented 3 in no apparent distress she is complaining of difficulty sleeping at night otherwise she denies any complaints, vital exam reveals a temperature of 97.5 pulse 100 respirations 17 blood pressure 106/60 pulse ox 97% on room air, laboratory data reveals a white blood count of 7.07 hemoglobin 8.1 platelet count 294 sodium 135 BUN 36 creatinine 1.49 at this time patient is maintained on TPN she is still having some oral intake possibility of PEG tube placement was raised by Dr. Gregorio, patient had previous gastrectomy, she may need an EGD to evaluate whether a PEG tube is a possibility for her. Objective - Vital Signs Vital signs: Vital Signs Temp 97.5 F L 07/01/21 14:00 Pulse 78 07/01/21 16:08 Resp 17 07/01/21 14:00 BP 106/60 07/01/21 14:00 Pulse Ox 97 07/01/21 14:00 Intake & Output 06/30/21 07/01/21 07/01/21 18:59 06:59 18:59 Intake Total 222 Output Total 1999 Balance 222 -1999 Weight 42.2 kg 42.2 kg Intake: Oral 222 Output: Urine 1999 Other: Voiding Method Toilet # Voids 3 1 4 # Bowel Movements 1 1 - Exam In general patient is alert and oriented x 3 in no distress HEENT head normocephalic and atraumatic Neck is supple no JVD no goiter no lymphadenopathy no carotid bruit Chest examination is clear to auscultation no crackles no wheezing Cardiac exam reveals regular heart sounds S1 and S2 no gallops no murmurs Abdomen is soft nontender no organomegaly with normal bowel sounds Extremity exam reveals no edema no cyanosis or clubbing Neurological examination reveals no gross focal deficits - Labs CBC & Chem 7: 07/01/21 06:21 07/01/21 06:21 Labs: Abnormal Lab Results - Last 24 Hours (Table) 07/01/21 07/01/21 07/01/21 Range/Units 00:04 06:21 06:21 RBC 3.09 L (4.10-5.20) X 10*6/uL Hgb 8.1 L (12.0-15.0) g/dL Hct 27.1 L (37.2-46.3) % MCH 26.2 L (27.0-32.0) pg MCHC 29.9 L (32.0-37.0) g/dL RDW 21.3 H (11.5-14.5) % Eosinophils # 0.59 H (0.04-0.35) X 10*3/uL Sodium 135 L (137-145) mmol/L BUN 36 H (7-17) mg/dL Creatinine 1.49 H (0.52-1.04) mg/dL POC Glucose (mg/dL) 120 H (75-99) mg/dL Iron (50-170) ug/dL % Saturation (12.00-45.00) Alkaline Phosphatase 203 H (38-126) U/L Albumin 3.4 L (3.5-5.0) g/dL 07/01/21 07/01/21 07/01/21 Range/Units 06:21 12:56 17:42 RBC (4.10-5.20) X 10*6/uL Hgb (12.0-15.0) g/dL Hct (37.2-46.3) % MCH (27.0-32.0) pg MCHC (32.0-37.0) g/dL RDW (11.5-14.5) % Eosinophils # (0.04-0.35) X 10*3/uL Sodium (137-145) mmol/L BUN (7-17) mg/dL Creatinine (0.52-1.04) mg/dL POC Glucose (mg/dL) 109 H 135 H (75-99) mg/dL Iron 19 L (50-170) ug/dL % Saturation 5.79 L (12.00-45.00) Alkaline Phosphatase (38-126) U/L Albumin (3.5-5.0) g/dL Microbiology - Last 24 Hours (Table) 06/26/21 20:20 Blood Culture - Preliminary Blood No Growth after 96 hours 06/26/21 20:03 Blood Culture - Preliminary Blood No Growth after 96 hours Assessment and Plan Plan: Dehydration with acute kidney injury Worsening leukocytosis. Improving Recent admission was sepsis and positive blood culture Underlying history of hypothyroidism Underlying history of chronic back pain with history of laminectomy Underlying history of severe protein calorie malnutrition maintained on TPN Underlying history of recurrent aspiration pneumonia Previous history of pancreatitis Previous history of bowel obstruction Abnormal computed tomography scan. Pulmonary services have been consulted DVT prophylaxis Lovenox. GI prophylaxis Protonix Infectious disease and nephrology services are following Rashaad service is consulted Maintained on IV antibiotics Maintained on IV fluid Computed tomography scan of the chest ordered Repeat labs ordered Patient maintained on chronic TPN at home
[2021-07-01] MEDS: MIRTAZAPINE 45 MG TABLET PO SCH (20:33)
[2021-07-01] MEDS: ENOXAPARIN 30 MG/0.3 ML SYRINGE SQ SCH (20:33)
--- NOTE | 2021-07-01 23:46 | P.PN ---
Subjective Progress Note Date: 06/30/21 Principal diagnosis: Pneumonia Patient is a 76-year-old female with a past medical history significant for recurrent pneumonia did have a history recurrent PICC line infe ction with the patient has for nutritional support, presenting to the hospital with feeling weak cough and lower rib cage pain. On today's evaluation that is 06/30/2021, the patient is afebrile, the patient is breathing comfortably on room air, the patient continue to be complaining of pain to the lower rib cage/upper abdominal area, the patient did have some nausea but no vomiting and no diarrhea, the patient did have mild cough but no sputum Objective - Vital Signs Vital signs: Vital Signs Temp 98.0 F 06/30/21 08:00 Pulse 77 06/30/21 11:21 Resp 18 06/30/21 08:00 BP 154/79 06/30/21 08:00 Pulse Ox 99 06/30/21 08:00 Intake & Output 06/29/21 06/30/21 06/30/21 17:59 06:59 18:59 Intake Total Balance Intake: Oral Other: # Voids 1 - Exam GENERAL DESCRIPTION: An elderly female lying in bed in no distress RESPIRATORY SYSTEM: Unlabored breathing , decreased breath sounds at bases HEART: S1 S2 regular rate and rhythm , ABDOMEN: Soft , no tenderness EXTREMITIES: No edema feet - Labs CBC & Chem 7: 07/01/21 06:21 07/01/21 06:21 Labs: Abnormal Lab Results - Last 24 Hours (Table) 06/30/21 06/30/21 06/30/21 Range/Units 06:37 06:37 12:54 RBC 3.06 L (4.10-5.20) X 10*6/uL Hgb 7.9 L (12.0-15.0) g/dL Hct 26.3 L (37.2-46.3) % MCH 25.8 L (27.0-32.0) pg MCHC 30.0 L (32.0-37.0) g/dL RDW 20.9 H (11.5-14.5) % Monocytes # 1.10 H (0.20-1.00) X 10*3/uL Eosinophils # 0.50 H (0.04-0.35) X 10*3/uL Sodium 136 L (137-145) mmol/L BUN 30 H (7-17) mg/dL Creatinine 1.60 H (0.52-1.04) mg/dL POC Glucose (mg/dL) 125 H (75-99) mg/dL Alkaline Phosphatase 200 H (38-126) U/L Albumin 3.2 L (3.5-5.0) g/dL Microbiology - Last 24 Hours (Table) 06/26/21 20:20 Blood Culture - Preliminary Blood No Growth after 72 hours 06/26/21 20:03 Blood Culture - Preliminary Blood No Growth after 72 hours Assessment and Plan (1) Persistent pneumonia Current Visit: Yes Status: Acute Code(s): J18.9 - PNEUMONIA, UNSPECIFIED ORGANISM SNOMED Code(s): 660110627 Plan: 1patient is in the hospital with weakness lower rib cage pain in this patient did have a abnormal chest x-ray and CT showing evidence of consolidation concerning for atypical infection versus recurrent aspiration pneumonia 2-patient continue with Aspiration precautions and cefepime possible transition to oral antibiotic on discharge Time with Patient: Less than 30
--- NOTE | 2021-07-01 23:48 | P.PN ---
Subjective Progress Note Date: 07/01/21 Principal diagnosis: Pneumonia Patient is a 76-year-old female with a past medical history significant for recurrent pneumonia did have a history recurrent PICC line infe ction with the patient has for nutritional support, presenting to the hospital with feeling weak cough and lower rib cage pain. On today's evaluation that is 07/01/2021, the patient denies any fever or any chills, the patient is breathing comfortably on room air, the patient still complained of some nausea but no vomiting denies having any choking on food no diarrhea, the patient did have mild cough but no sputum Objective - Vital Signs Vital signs: Vital Signs Temp 97.5 F L 07/01/21 14:00 Pulse 78 07/01/21 16:08 Resp 17 07/01/21 14:00 BP 106/60 07/01/21 14:00 Pulse Ox 97 07/01/21 14:00 Intake & Output 06/30/21 07/01/21 07/01/21 18:59 06:59 18:59 Intake Total 222 Output Total 1999 Balance 222 -1999 Weight 42.2 kg 42.2 kg Intake: Oral 222 Output: Urine 1999 Other: Voiding Method Toilet # Voids 3 1 # Bowel Movements 1 1 - Exam GENERAL DESCRIPTION: An elderly female lying in bed in no distress RESPIRATORY SYSTEM: Unlabored breathing , decreased breath sounds at bases HEART: S1 S2 regular rate and rhythm , ABDOMEN: Soft , no tenderness EXTREMITIES: No edema feet - Labs CBC & Chem 7: 07/01/21 06:21 07/01/21 06:21 Labs: Abnormal Lab Results - Last 24 Hours (Table) 06/30/21 07/01/21 07/01/21 Range/Units 17:29 00:04 06:21 RBC (4.10-5.20) X 10*6/uL Hgb (12.0-15.0) g/dL Hct (37.2-46.3) % MCH (27.0-32.0) pg MCHC (32.0-37.0) g/dL RDW (11.5-14.5) % Eosinophils # (0.04-0.35) X 10*3/uL Sodium 135 L (137-145) mmol/L BUN 36 H (7-17) mg/dL Creatinine 1.49 H (0.52-1.04) mg/dL POC Glucose (mg/dL) 144 H 120 H (75-99) mg/dL Iron (50-170) ug/dL % Saturation (12.00-45.00) Alkaline Phosphatase 203 H (38-126) U/L Albumin 3.4 L (3.5-5.0) g/dL 07/01/21 07/01/21 07/01/21 Range/Units 06:21 06:21 12:56 RBC 3.09 L (4.10-5.20) X 10*6/uL Hgb 8.1 L (12.0-15.0) g/dL Hct 27.1 L (37.2-46.3) % MCH 26.2 L (27.0-32.0) pg MCHC 29.9 L (32.0-37.0) g/dL RDW 21.3 H (11.5-14.5) % Eosinophils # 0.59 H (0.04-0.35) X 10*3/uL Sodium (137-145) mmol/L BUN (7-17) mg/dL Creatinine (0.52-1.04) mg/dL POC Glucose (mg/dL) 109 H (75-99) mg/dL Iron 19 L (50-170) ug/dL % Saturation 5.79 L (12.00-45.00) Alkaline Phosphatase (38-126) U/L Albumin (3.5-5.0) g/dL Microbiology - Last 24 Hours (Table) 06/26/21 20:20 Blood Culture - Preliminary Blood No Growth after 96 hours 06/26/21 20:03 Blood Culture - Preliminary Blood No Growth after 96 hours Assessment and Plan (1) Persistent pneumonia Current Visit: Yes Status: Acute Code(s): J18.9 - PNEUMONIA, UNSPECIFIED ORGANISM SNOMED Code(s): 933354162 Plan: 1patient is in the hospital with weakness lower rib cage pain in this patient did have a abnormal chest x-ray and CT showing evidence of consolidation concerning for atypical infection versus recurrent aspiration pneumonia 2-patient continue with Aspiration precautions and cefepime possible transition to oral antibiotic on discharge 3-patient may benefit from Gen. surgery evaluation for possible consideration for jejunostomy tube placement for feeding to prevent recurrent aspiration and also get rid off TPN to decrease risk of line sepsis Time with Patient: Less than 30
[2021-07-02 00:08] LABS: Glucose,Whole Blood 93 mg/dL (75-99)
[2021-07-02] MEDS: HYDROmorphone 0.5 MG/0.5 ML SYRINGE IVP PRN ×7 (00:22→23:41)
[2021-07-02] MEDS: 1: MVI, ADULT NO.4 WITH VIT K 10 ML, TRACE (CONC-1ML/DOSE) 1 ML, PARENTERAL ELECTROLYTES IV SCH ×4 (04:06)
[2021-07-02] MEDS: ALPRAZolam 0.25 MG TAB PO PRN ×4 (04:06→23:41)
[2021-07-02] MEDS: PROCHLORPERAZINE 5 MG TAB PO PRN ×2 (04:06→11:54)
[2021-07-02] MEDS: CEFEPIME 1 GM in SODIUM CHLORIDE 0.9% 50 ML IVPB SCH ×2 (05:01→17:19)
[2021-07-02] MEDS: LEVOTHYROXINE 100 MCG TAB PO SCH (05:54)
[2021-07-02 06:08] LABS: Glucose,Whole Blood 116 mg/dL (75-99)
[2021-07-02] MEDS: IPRATROPIUM-ALBUTEROL 3 ML NEB INHALATION SCH ×4 (07:53→20:06)
[2021-07-02] MEDS: SYMBICORT 160-4.5 MCG INHALER INHALATION SCH ×2 (07:53→20:06)
[2021-07-02 09:10] LABS: Magnesium 2.3 mg/dL (1.5-2.4)
[2021-07-02 09:37] LABS: African American GFR (CKD) 37.3 (60.0-200.0); Anion Gap 11.6 mmol/L (10.00-18.00); BUN/Creat Ratio 26.05 Ratio (12.00-20.00); Blood Urea Nitrogen 40.9 mg/dL (9.0-27.0); Calcium 9.6 mg/dL (8.7-10.3); Carbon Dioxide 25.5 mmol/L (20.0-27.5); Non-African American GFR(CKD) 32.1 (60.0-200.0); Potassium 5.1 mmol/L (3.5-5.5)
[2021-07-02] MEDS: LORATADINE 10 MG TAB PO SCH (09:43)
[2021-07-02] MEDS: THIAMINE 100 MG TAB PO SCH (09:43)
[2021-07-02] MEDS: PANTOPRAZOLE 40 MG TABLET PO SCH ×2 (09:43→16:50)
[2021-07-02] MEDS: amLODIPine 5 MG TAB PO SCH (09:43)
[2021-07-02] MEDS: hydrOXYzine pamoate 25 MG CAP PO SCH ×3 (09:45→20:17)
[2021-07-02] MEDS: buPROPion XL 300 MG TAB.ER.24H PO SCH (09:46)
[2021-07-02] MEDS: busPIRone HCl 10 MG TAB PO SCH ×2 (09:46→20:18)
[2021-07-02] MEDS: buPROPion XL 150 MG TAB.ER.24H PO SCH (09:47)
[2021-07-02] MEDS: ASPIRIN 81 MG PO SCH (09:54)
[2021-07-02] MEDS: oxyCODONE-APAP 7.5-325MG 1 EACH TAB PO SCH ×2 (09:54→20:16)
--- NOTE | 2021-07-02 10:07 | P.PN ---
Subjective Patient is seen in follow-up for acute kidney injury and chronic kidney disease. Renal function fairly stable. Good urine output. No vomiting or diarrhea. No active complaints at this time. No changes overnight. Vital signs are stable. General: Awake and alert. HEENT: Head exam is unremarkable. LUNGS: Breath sounds decreased. HEART: Rate and Rhythm are regular. ABDOMEN: No distention. EXTREMITITES: No edema. Objective - Vital Signs Vital signs: Vital Signs Temp 98.0 F 07/02/21 00:07 Pulse 72 07/02/21 08:04 Resp 18 07/02/21 10:03 BP 147/64 07/02/21 00:07 Pulse Ox 97 07/02/21 00:07 Intake & Output 07/01/21 07/02/21 07/02/21 18:59 06:59 18:59 Intake Total 1031 Output Total 200 700 Balance 831 -700 Weight 42.2 kg 43 kg Intake: Intake, IV Titration 1031 Amount Mvi, Adult No.4 with Vit 1031 K 10 ml Trace (Conc-1Ml/ Dose) 1 ml Parenteral Electrolytes 20 ml In Amino Acid 4.25%-D10w 1, 000 ml @ 50 mls/hr IV .BY DURATION [facility] Rx#: [id number] Output: Urine 200 700 Other: Voiding Method Toilet Toilet Toilet # Voids 4 - Labs CBC & Chem 7: 07/01/21 06:21 07/02/21 05:33 Labs: Abnormal Lab Results - Last 24 Hours (Table) 07/01/21 07/01/21 07/01/21 Range/Units 06:21 12:56 17:42 BUN (9.0-27.0) mg/dL Creatinine (0.6-1.5) mg/dL Est GFR (CKD-EPI)AfAm (60.0-200.0) Est GFR (CKD-EPI)NonAf (60.0-200.0) BUN/Creatinine Ratio (12.00-20.00) Ratio Glucose (70-110) mg/dL POC Glucose (mg/dL) 109 H 135 H (75-99) mg/dL Iron 19 L (50-170) ug/dL % Saturation 5.79 L (12.00-45.00) 07/02/21 07/02/21 Range/Units 05:33 06:07 BUN 40.9 H (9.0-27.0) mg/dL Creatinine 1.6 H (0.6-1.5) mg/dL Est GFR (CKD-EPI)AfAm 37.3 L (60.0-200.0) Est GFR (CKD-EPI)NonAf 32.1 L (60.0-200.0) BUN/Creatinine Ratio 26.05 H (12.00-20.00) Ratio Glucose 112 H (70-110) mg/dL POC Glucose (mg/dL) 116 H (75-99) mg/dL Iron (50-170) ug/dL % Saturation (12.00-45.00) Microbiology - Last 24 Hours (Table) 06/26/21 20:20 Blood Culture - Preliminary Blood No Growth after 120 hours 06/26/21 20:03 Blood Culture - Preliminary Blood No Growth after 120 hours Assessment and Plan Plan: Assessment: 1. Acute kidney injury mostly prerenal secondary to hypovolemia. Improved with IV hydration. Creatinine fairly stable at 1.6 today. 2. Metabolic acidosis secondary to acute kidney injury. Improved. Status post IV bicarb. 3. Chronic kidney disease stage IIIB with baseline creatinine near 1.5. Atrophic right kidney. UA from last month showed no proteinuria. She did have proteinuria at this admission. Will monitor outpatient. 4. History of aspiration pneumonia. 5. Anemia of chronic kidney disease. Iron deficiency noted. 6. Hypertension with chronic kidney disease. Plan: Encouraged oral intake. Stopped Lasix. No evidence of volume overload. Add IV iron. Patient is interested in getting a PEG tube if possible rather than receiving TPN every night. She will follow-up with surgery outpatient.
[2021-07-02] MEDS: BUTALB/APAP/CAFF 50-325-40MG TAB PO PRN ×2 (10:55→22:44)
[2021-07-02] MEDS: SODIUM FERRIC GLUCONAT-SUCROSE 125 MG in SODIUM CHLORIDE 0.9% 100 ML IVPB SCH (10:56)
[2021-07-02] MEDS: FERROUS SULFATE 325 MG TAB PO SCH (12:08)
--- NOTE | 2021-07-02 12:30 | P.PN ---
<Lesly,Lyela - Last Filed: 07/02/21 12:21> Subjective Progress Note Date: 07/02/21 This is a very pleasant 76-year-old female patient well known to our practice. She has a history of chronic obstructive pulmonary disease with multiple COPD exacerbations and admissions, chronic aspiration pneumonia, fever is previous ga strectomy and receives TPN in the outpatient setting, hypothyroidism, anorexia/cachexia syndrome. She has chronic changes in her chest x-ray including right upper lobe and left midlung. She follows with ID services and has a port in for frequent IV antibiotics. Most recently in February she had M RSA in her bronchial wash. She's had multiple admissions for recurrent pneumonias. She was just recently here for 13 days and was home for 7 days and presented again with similar symptoms or shortness breath, cough congestion. She also was found to have abnormal out patient labs. Chest x-ray revealed moderate confluent opacities in the right upper and left midlung calixto. PICC line in place. No significant change compared to previous chest x-ray 06/07/2021. CAT scan revealed persistent pulmonary nodules and thick areas of pulmonary consolidation/soft tissue thickening demonstrating minimal changes described above. New areas of groundglass opacities. Suspect persistent extensive chronic infection, atypical infection, neoplasm not totally excluded. Blood cultures reveal no growth. Urine cultures reveal no growth. White count 9.0. Hemoglobin 7.5. Sodium 137. Potassium 4.2. BUN 30. Creatinine 1.55. She's been initiated on DuoNeb inhalations, Symbicort, antibiotics in the form of cefepime. Lovenox for DVT prophylaxis. She is seen today in consultation on the regular medical floor. She is currently sitting up in bed. Awake and alert in no acute distress. Maintaining good O2 saturations in the 90s on room air. She's been afebrile. Hemodynamically stable. The patient is seen today 06/30/2021 in follow-up. She is currently resting comfortably in bed. Awake and alert in no acute distress. Continues to maintain good O2 saturations in the 90s on room air. She's been afebrile. Blood cultures reveal no growth. Urine culture revealed no growth. White count 9.0. Hemoglobin 7.9. Sodium 136. Potassium 4.6. BUN 30. Creatinine 1.60. She is continued on Symbicort, DuoNeb inhalations. Antibiotics in the form of cefepime. Lovenox for DVT prophylaxis. Being nourished with TPN and lipids. The patient is seen today 07/02/2021 in follow-up on the regular medical floor. She is awake and alert in no acute distress. Resting comfortably in bed. Maint aining good O2 saturations in the 90s on room air. She continues to be afebrile. Blood cultures reveal no growth. Urine culture revealed no growth. Sodium 138. Potassium 5.1. BUN 41. Creatinine 1.6. Glucose 112. She remains on TPN and lipids for nutritional support. Continued on Symbicort, DuoNeb inhalations. Antibiotics in the form of cefepime. Lovenox for DVT prophylaxis. Her main complaint is ongoing issues with chest wall discomfort. Objective - Vital Signs Vital signs: Vital Signs Temp 97.8 F 07/02/21 08:00 Pulse 72 07/02/21 08:04 Resp 18 07/02/21 10:03 BP 168/73 07/02/21 08:00 Pulse Ox 97 07/02/21 08:00 Intake & Output 07/01/21 07/02/21 07/02/21 18:59 06:59 18:59 Intake Total 1031 222 Output Total 200 700 Balance 831 -700 222 Weight 42.2 kg 43 kg Intake: Intake, IV Titration 1031 Amount Mvi, Adult No.4 with Vit 1031 K 10 ml Trace (Conc-1Ml/ Dose) 1 ml Parenteral Electrolytes 20 ml In Amino Acid 4.25%-D10w 1, 000 ml @ 50 mls/hr IV .BY DURATION [facility] Rx#: [id number] Oral 222 Output: Urine 200 700 Other: Voiding Method Toilet Toilet Toilet # Voids 4 - Exam GENERAL EXAM: Alert, very pleasant, frail, cachectic 76-year-old female patient, on room air, comfortable in no apparent distress. HEAD: Normocephalic. EYES: Normal reaction of pupils, equal size. NOSE: Clear with pink turbinates. THROAT: No erythema or exudates. NECK: No masses, no JVD. CHEST: No chest wall deformity. LUNGS: Equal air entry with bilateral scattered rhonchi. CVS: S1 and S2 normal with no audible murmur, regular rhythm. ABDOMEN: No hepatosplenomegaly, normal bowel sounds, no guarding or rigidity. SPINE: No scoliosis or deformity SKIN: No rashes CENTRAL NERVOUS SYSTEM: No focal deficits, tone is normal in all 4 extremities. EXTREMITIES: PICC line in place. There is no peripheral edema. No clubbing, no cyanosis. Peripheral pulses are intact. - Labs CBC & Chem 7: 07/01/21 06:21 07/02/21 05:33 Labs: Abnormal Lab Results - Last 24 Hours (Table) 07/01/21 07/01/21 07/01/21 Range/Units 06:21 12:56 17:42 BUN (9.0-27.0) mg/dL Creatinine (0.6-1.5) mg/dL Est GFR (CKD-EPI)AfAm (60.0-200.0) Est GFR (CKD-EPI)NonAf (60.0-200.0) BUN/Creatinine Ratio (12.00-20.00) Ratio Glucose (70-110) mg/dL POC Glucose (mg/dL) 109 H 135 H (75-99) mg/dL Iron 19 L (50-170) ug/dL % Saturation 5.79 L (12.00-45.00) 07/02/21 07/02/21 Range/Units 05:33 06:07 BUN 40.9 H (9.0-27.0) mg/dL Creatinine 1.6 H (0.6-1.5) mg/dL Est GFR (CKD-EPI)AfAm 37.3 L (60.0-200.0) Est GFR (CKD-EPI)NonAf 32.1 L (60.0-200.0) BUN/Creatinine Ratio 26.05 H (12.00-20.00) Ratio Glucose 112 H (70-110) mg/dL POC Glucose (mg/dL) 116 H (75-99) mg/dL Iron (50-170) ug/dL % Saturation (12.00-45.00) Microbiology - Last 24 Hours (Table) 06/26/21 20:20 Blood Culture - Preliminary Blood No Growth after 120 hours 06/26/21 20:03 Blood Culture - Preliminary Blood No Growth after 120 hours Assessment and Plan Assessment: 1 Acute on chronic renal failure 2 Non-anion gap metabolic acidosis secondary to acute renal failure 3 Recent urinary tract infection 4 Chronic kidney disease with atrophic right kidney 5 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 Maintained on TPN in the outpatient setting 6 History of frequent aspiration pneumonias and MRSA pneumonia with some chronic right upper lung and left midlung changes his last bronchoscopy in February 2021 7 Gastroesophageal reflux disease. 8 History of hypothyroidism. 9 History of migraine cephalgia. 10 History of pancreatitis. Plan: The patient was seen and evaluated Stable and on room air Chest x-rays have not shown much improvement Remains on cefepime for now Previous bronchoscopy with brushings and washings did not reveal any evidence of malignancy May consider repeat bronchoscopy with biopsies versus outpatient PET scan The patient did have a PET scan 2-3 years ago at [facility] without any evidence of malignancy I have personally seen and examined the patient, performed the documentation and the assessment and plan as written. Number of minutes spent on the visit: 10. <Geovanny Womack - Last Filed: 07/02/21 16:05> Objective - Vital Signs Vital signs: Vital Signs Temp 98.3 F 07/02/21 14:10 Pulse 107 H 07/02/21 14:10 Resp 16 07/02/21 14:10 BP 157/84 07/02/21 14:10 Pulse Ox 99 07/02/21 14:10 Intake & Output 07/01/21 07/02/21 07/02/21 18:59 06:59 18:59 Intake Total 1031 340 Output Total 200 700 400 Balance 831 -700 -60 Weight 42.2 kg 43 kg Intake: Intake, IV Titration 1031 Amount Mvi, Adult No.4 with Vit 1031 K 10 ml Trace (Conc-1Ml/ Dose) 1 ml Parenteral Electrolytes 20 ml In Amino Acid 4.25%-D10w 1, 000 ml @ 50 mls/hr IV .BY DURATION [facility] Rx#: [id number] Oral 340 Output: Urine 200 700 400 Other: Voiding Method Toilet Toilet Toilet # Voids 4 - Labs CBC & Chem 7: 07/01/21 06:21 07/02/21 05:33 Labs: Abnormal Lab Results - Last 24 Hours (Table) 07/01/21 07/02/21 07/02/21 Range/Units 17:42 05:33 06:07 BUN 40.9 H (9.0-27.0) mg/dL Creatinine 1.6 H (0.6-1.5) mg/dL Est GFR (CKD-EPI)AfAm 37.3 L (60.0-200.0) Est GFR (CKD-EPI)NonAf 32.1 L (60.0-200.0) BUN/Creatinine Ratio 26.05 H (12.00-20.00) Ratio Glucose 112 H (70-110) mg/dL POC Glucose (mg/dL) 135 H 116 H (75-99) mg/dL 07/02/21 Range/Units 12:36 BUN (9.0-27.0) mg/dL Creatinine (0.6-1.5) mg/dL Est GFR (CKD-EPI)AfAm (60.0-200.0) Est GFR (CKD-EPI)NonAf (60.0-200.0) BUN/Creatinine Ratio (12.00-20.00) Ratio Glucose (70-110) mg/dL POC Glucose (mg/dL) 119 H (75-99) mg/dL Microbiology - Last 24 Hours (Table) 06/26/21 20:20 Blood Culture - Preliminary Blood No Growth after 120 hours 06/26/21 20:03 Blood Culture - Preliminary Blood No Growth after 120 hours Assessment and Plan Assessment: I have personally seen and examined the patient and reviewed the documentation. I performed a joint evaluation with the nurse practitioner in this evaluation was done more than 20 minutes. I fully agree with the documentation above and the plan of care. The patient had a stable creatinine of 1.6 and she has recovered also from acute kidney injury with a creatinine was as high as 2.37. We'll decide on the lung biopsy at a later stage.
[2021-07-02 12:38] LABS: Glucose,Whole Blood 119 mg/dL (75-99)
[2021-07-02 17:53] LABS: Glucose,Whole Blood 117 mg/dL (75-99)
[2021-07-02] MEDS: ENOXAPARIN 30 MG/0.3 ML SYRINGE SQ SCH (20:16)
[2021-07-02] MEDS: SUMAtriptan succinate 50 MG TAB PO PRN (20:17)
[2021-07-02] MEDS: MIRTAZAPINE 45 MG TABLET PO SCH (21:40)
[2021-07-03] MEDS: 1: MVI, ADULT NO.4 WITH VIT K 10 ML, TRACE (CONC-1ML/DOSE) 1 ML, PARENTERAL ELECTROLYTES IV SCH ×4 (01:11)
[2021-07-03 01:17] LABS: Glucose,Whole Blood 86 mg/dL (75-99)
[2021-07-03] MEDS: CEFEPIME 1 GM in SODIUM CHLORIDE 0.9% 50 ML IVPB SCH (05:13)
[2021-07-03] MEDS: HYDROmorphone 0.5 MG/0.5 ML SYRINGE IVP PRN ×4 (05:14→16:34)
[2021-07-03] MEDS: ALPRAZolam 0.25 MG TAB PO PRN ×2 (05:14→12:25)
[2021-07-03] MEDS: LEVOTHYROXINE 100 MCG TAB PO SCH (05:14)
[2021-07-03 05:58] LABS: Glucose,Whole Blood 97 mg/dL (75-99)
[2021-07-03 06:59] LABS: Glucose,Whole Blood 103 mg/dL (75-99)
[2021-07-03] MEDS: amLODIPine 5 MG TAB PO SCH (07:35)
[2021-07-03] MEDS: PANTOPRAZOLE 40 MG TABLET PO SCH (07:35)
[2021-07-03] MEDS: THIAMINE 100 MG TAB PO SCH (07:36)
[2021-07-03] MEDS: hydrOXYzine pamoate 25 MG CAP PO SCH ×2 (07:36→17:02)
[2021-07-03] MEDS: buPROPion XL 300 MG TAB.ER.24H PO SCH (07:36)
[2021-07-03] MEDS: ASPIRIN 81 MG PO SCH (07:36)
[2021-07-03] MEDS: LORATADINE 10 MG TAB PO SCH (07:38)
[2021-07-03] MEDS: oxyCODONE-APAP 7.5-325MG 1 EACH TAB PO SCH (07:38)
[2021-07-03] MEDS: IPRATROPIUM-ALBUTEROL 3 ML NEB INHALATION SCH ×3 (07:44→15:02)
[2021-07-03] MEDS: SYMBICORT 160-4.5 MCG INHALER INHALATION SCH (07:44)
[2021-07-03 08:36] VITALS: RESP 16
[2021-07-03] MEDS: SUMAtriptan succinate 50 MG TAB PO PRN (09:05)
[2021-07-03] MEDS: SODIUM FERRIC GLUCONAT-SUCROSE 125 MG in SODIUM CHLORIDE 0.9% 100 ML IVPB SCH (09:06)
[2021-07-03] MEDS: buPROPion XL 150 MG TAB.ER.24H PO SCH (09:07)
[2021-07-03] MEDS: busPIRone HCl 10 MG TAB PO SCH (09:07)
--- NOTE | 2021-07-03 10:02 | P.PN ---
Subjective Patient is seen in follow-up for acute kidney injury and chronic kidney disease. Renal function fairly stable. Good urine output. No vomiting or diarrhea. Oral intake is just fair. Receives TPN at night. No active complaints at this time. No changes overnight. Vital signs are stable. General: Awake and alert. HEENT: Head exam is unremarkable. LUNGS: Breath sounds decreased. HEART: Rate and Rhythm are regular. ABDOMEN: No distention. EXTREMITITES: No edema. Objective - Vital Signs Vital signs: Vital Signs Temp 97.6 F 07/03/21 06:57 Pulse 74 07/03/21 07:58 Resp 16 07/03/21 06:57 BP 116/64 07/03/21 06:57 Pulse Ox 100 07/03/21 06:57 Intake & Output 07/02/21 07/03/21 07/03/21 18:59 06:59 18:59 Intake Total 340 Output Total 800 Balance -460 Weight 41.6 kg Intake: Oral 340 Output: Urine 800 Other: Voiding Method Toilet # Voids 1 - Labs CBC & Chem 7: 07/01/21 06:21 07/02/21 05:33 Labs: Abnormal Lab Results - Last 24 Hours (Table) 07/02/21 07/02/21 07/03/21 Range/Units 12:36 17:52 06:58 POC Glucose (mg/dL) 119 H 117 H 103 H (75-99) mg/dL Microbiology - Last 24 Hours (Table) 06/26/21 20:20 Blood Culture - Final Blood No Growth after 144 hours 06/26/21 20:03 Blood Culture - Final Blood No Growth after 144 hours Assessment and Plan Plan: Assessment: 1. Acute kidney injury mostly prerenal secondary to hypovolemia. Improved with IV hydration. Creatinine fairly stable at 1.6 yesterday. 2. Metabolic acidosis secondary to acute kidney injury. Improved. Status post IV bicarb. 3. Chronic kidney disease stage IIIB with baseline creatinine near 1.5. Atrophic right kidney. UA from last month showed no proteinuria. She did have proteinuria at this admission. Will monitor outpatient. 4. History of aspiration pneumonia. 5. Anemia of chronic kidney disease. Iron deficiency noted. 6. Hypertension with chronic kidney disease.controlled. Plan: Encouraged oral intake. Lasix currently held. Patient states she does get edema at times. Will resume Lasix tomorrow. Maintain IV iron. Patient is interested in getting a PEG tube if possible rather than receiving TPN every night. She will follow-up with surgery outpatient.
[2021-07-03] MEDS: BUTALB/APAP/CAFF 50-325-40MG TAB PO PRN (11:25)
[2021-07-03] MEDS: FERROUS SULFATE 325 MG TAB PO SCH (11:26)
[2021-07-03 11:59] LABS: Glucose,Whole Blood 171 mg/dL (75-99)
[2021-07-03 12:09] LABS: ALT 21 U/L (8-44); AST 25 U/L (13-35); African American GFR (CKD) 35.6 (60.0-200.0); Albumin 4.1 g/dL (3.8-4.9); Albumin/Globulin Ratio 1.47 (1.60-3.17); Alkaline Phosphatase 217 U/L (41-126); Blood Urea Nitrogen 44.5 mg/dL (9.0-27.0); Calcium 9.9 mg/dL (8.7-10.3); Carbon Dioxide 22.7 mmol/L (20.0-27.5); Chloride 102 mmol/L (96-109); Globulin 2.8 g/dL (1.6-3.3); Glucose 104 mg/dL (70-110); Magnesium 2.5 mg/dL (1.5-2.4); Non-African American GFR(CKD) 30.7 (60.0-200.0); Phosphorus 2.9 mg/dL (2.4-5.1); Potassium 5.1 mmol/L (3.5-5.5); Sodium 135 mmol/L (135-145); Total Bilirubin <0.15 mg/dL (0.30-1.20); Total Protein 6.8 g/dL (6.2-8.2)
--- NOTE | 2021-07-03 12:29 | P.PN ---
Subjective Progress Note Date: 07/02/21 Louise Sutton, he is a 76-year-old female who presented to [facility] with a chief complaint of generalized weakness, dehydration was elevated BUN and creatinine and leukocytosis She was evaluated in the emergency room vital examination on presentation revealed a temperature of 98.3 pulse 95 respiration 22 blood pressure 135/89 pulse ox 100% on room air Laboratory data revealed a white blood count of 11.3 hemoglobin 8.8 platelet count 356 sodium 139 potassium 3.9 chloride 106 CO2 18 BUN 47 creatinine 2.37 Testing in the emergency room revealed chest x-ray revealed a right upper lobe a nd left mid lung opacities, EKG was normal Patient was admitted to medical floor for further evaluation and treatment. Patient was recently discharged from [facility] after an admiss ion for pneumonia and sepsis with positive blood culture patient is followed by Dr. Gregorio then was maintained on IV cefepime at home. Patient also has multiple medical problem and is maintained on TPN at home. On 06/28/2021 patient is alert and oriented 3. Antibiotics have been adjusted to Maxipime per infectious disease. Computed tomography scan of the chest also ordered. This time patient complains of generalized pain. Patient denies nausea vomiting or diarrhea. Patient denies any urinary burning or frequency. White blood cell improving to 7.8. Creatinine 2.09 and bun 39 On 06/29/2021 patient was seen and examined on the medical floor she is alert and oriented 3 in no apparent distress, she denies any new complaints vital exam reveals a temperature of 97.4 pulse 105 respiration 16 blood pressure 168/89 pulse ox 98% on room air, laboratory data reveals a white blood count of 9.0 to hemoglobin 7.5 platelet count 300 sodium 137 potassium 4.2 chloride 104 CO2 31 BUN 30 creatinine 1.55 computed tomography scan of the chest was ordered by Dr. Gregorio and reveals persistent pulmonary nodules and thick areas of pulmonary consultation with a newly seen areas of groundglass opacities. At this time repeat swallow evaluation was ordered and pulmonary consultation was requested On 06/30/2021 patient is alert and oriented 3. White blood cell 9.05, hemoglobin 7.9, bun 30 and creatinine 1.60. Patient is resting comfortably bed. Patient remains on IV antibiotic cefepime. Pulmonary and infectious disease service is following. At this time patient denies chest pain or shortness breath. Patient reports chronic pain. Patient denies nausea vomiting or diarrhea. Patient denies any urinary burning or frequency On 07/01/2021 patient was seen and examined on the medical floor she is alert and oriented 3 in no apparent distress she is complaining of difficulty sleeping at night otherwise she denies any complaints, vital exam reveals a temperature of 97.5 pulse 100 respirations 17 blood pressure 106/60 pulse ox 97% on room air, laboratory data reveals a white blood count of 7.07 hemoglobin 8.1 platelet count 294 sodium 135 BUN 36 creatinine 1.49 at this time patient is maintained on TPN she is still having some oral intake possibility of PEG tube placement was raised by Dr. Gregorio, patient had previous gastrectomy, she may need an EGD to evaluate whether a PEG tube is a possibility for her. On 07/02/2021 patient is alert and oriented 3. Nephrology, infectious disease and pulmonary services are following. Creatinine 1.6. This time patient denies chest pain or shortness breath. Patient denies nausea vomiting or diarrhea. Patient denies any urinary burning or frequency Objective - Vital Signs Vital signs: Vital Signs Temp 98.3 F 07/02/21 14:10 Pulse 88 07/02/21 16:40 Resp 16 07/02/21 14:10 BP 157/84 07/02/21 14:10 Pulse Ox 99 07/02/21 14:10 Intake & Output 07/02/21 07/02/21 07/03/21 06:59 18:59 06:59 Intake Total 340 Output Total 700 800 Balance -700 -460 Weight 43 kg Intake: Oral 340 Output: Urine 700 800 Other: Voiding Method Toilet Toilet - Exam In general patient is alert and oriented x 3 in no distress HEENT head normocephalic and atraumatic Neck is supple no JVD no goiter no lymphadenopathy no carotid bruit Chest examination is clear to auscultation no crackles no wheezing Cardiac exam reveals regular heart sounds S1 and S2 no gallops no murmurs Abdomen is soft nontender no organomegaly with normal bowel sounds Extremity exam reveals no edema no cyanosis or clubbing Neurological examination reveals no gross focal deficits - Labs CBC & Chem 7: 07/01/21 06:21 07/03/21 07:28 Labs: Abnormal Lab Results - Last 24 Hours (Table) 07/02/21 07/02/2122 Range/Units 05:33 06:07 12:36 BUN 40.9 H (9.0-27.0) mg/dL Creatinine 1.6 H (0.6-1.5) mg/dL Est GFR (CKD-EPI)AfAm 37.3 L (60.0-200.0) Est GFR (CKD-EPI)NonAf 32.1 L (60.0-200.0) BUN/Creatinine Ratio 26.05 H (12.00-20.00) Ratio Glucose 112 H (70-110) mg/dL POC Glucose (mg/dL) 116 H 119 H (75-99) mg/dL 07/02/21 Range/Units 17:52 BUN (9.0-27.0) mg/dL Creatinine (0.6-1.5) mg/dL Est GFR (CKD-EPI)AfAm (60.0-200.0) Est GFR (CKD-EPI)NonAf (60.0-200.0) BUN/Creatinine Ratio (12.00-20.00) Ratio Glucose (70-110) mg/dL POC Glucose (mg/dL) 117 H (75-99) mg/dL Microbiology - Last 24 Hours (Table) 06/26/21 20:20 Blood Culture - Preliminary Blood No Growth after 120 hours 06/26/21 20:03 Blood Culture - Preliminary Blood No Growth after 120 hours Assessment and Plan Plan: Dehydration with acute kidney injury Worsening leukocytosis. Improving Recent admission was sepsis and positive blood culture Underlying history of hypothyroidism Underlying history of chronic back pain with history of laminectomy Underlying history of severe protein calorie malnutrition maintained on TPN Underlying history of recurrent aspiration pneumonia Previous history of pancreatitis Previous history of bowel obstruction Abnormal computed tomography scan. Pulmonary services have been consulted DVT prophylaxis Lovenox. GI prophylaxis Protonix Infectious disease and nephrology services are following Rashaad service is consulted Maintained on IV antibiotics Maintained on IV fluid Computed tomography scan of the chest ordered Repeat labs ordered Patient maintained on chronic TPN at home
--- NOTE | 2021-07-03 12:33 | P.DS ---
Providers Date of admission: 06/26/21 21:56 Expected date of discharge: 07/03/21 Attending physician: Palmer Desir Consults: 06/26/21 21:56 Consult Physician Urgent Consulting Provider: Abisai Carter Consult Reason/Comments: Acute kidney injury Do you want consulting provider notified?: Yes Consult Physician Urgent Consulting Provider: Jas Gregorio Consult Reason/Comments: Persistent pneumonia, recent sepsis Do you want consulting provider notified?: Yes 06/29/21 10:05 Consult Physician Routine Consulting Provider: Geovanny Womack Consult Reason/Comments: recurrent pneumonia Do you want consulting provider notified?: Yes Primary care physician: Ale Eli [facility] Course: Discharge diagnosis Dehydration with acute kidney injury Worsening leukocytosis. Improving Recent admission was sepsis and positive blood culture Underlying history of hypothyroidism Underlying history of chronic back pain with history of laminectomy Underlying history of severe protein calorie malnutrition maintained on TPN Underlying history of recurrent aspiration pneumonia Previous history of pancreatitis Previous history of bowel obstruction Abnormal computed tomography scan. Pulmonary services have been consulted. Per pulmonary recommend follow-up outpatient for possible bronchoscopy versus PET scan Hospital course Louise Sutton, he is a 76-year-old female who presented to [facility] with a chief complaint of generalized weakness, dehydration was elevated BUN and creatinine and leukocytosis She was evaluated in the emergency room vital examination on presentation revealed a temperature of 98.3 pulse 95 respiration 22 blood pressure 135/89 pulse ox 100% on room air Laboratory data revealed a white blood count of 11.3 hemoglobin 8.8 platelet count 356 sodium 139 potassium 3.9 chloride 106 CO2 18 BUN 47 creatinine 2.37 Testing in the emergency room revealed chest x-ray revealed a right upper lobe and left mid lung opacities, EKG was normal Patient was admitted to medical floor for further evaluation and treatment. Patient was recently discharged from [facility] after an admission for pneumonia and sepsis with positive blood culture patient is followed by Dr. Gregorio then was maintained on IV cefepime at home. Patient also has multiple medical problem and is maintained on TPN at home. On 06/28/2021 patient is alert and oriented 3. Antibiotics have been adjusted to Maxipime per infectious disease. Computed tomography scan of the chest also ordered. This time patient complains of generalized pain. Patient denies nausea vomiting or diarrhea. Patient denies any urinary burning or frequency. White blood cell improving to 7.8. Creatinine 2.09 and bun 39 On 06/29/2021 patient was seen and examined on the medical floor she is alert and oriented 3 in no apparent distress, she denies any new complaints vital exam reveals a temperature of 97.4 pulse 105 respiration 16 blood pressure 168/89 pulse ox 98% on room air, laboratory data reveals a white blood count of 9.0 to hemoglobin 7.5 platelet count 300 sodium 137 potassium 4.2 chloride 104 CO2 31 BUN 30 creatinine 1.55 computed tomography scan of the chest was ordered by Dr. Gregorio and reveals persistent pulmonary nodules and thick areas of pulmonary consultation with a newly seen areas of groundglass opacities. At this time repeat swallow evaluation was ordered and pulmonary consultation was requested On 06/30/2021 patient is alert and oriented 3. White blood cell 9.05, hemoglobin 7.9, bun 30 and creatinine 1.60. Patient is resting comfortably bed. Patient remains on IV antibiotic cefepime. Pulmonary and infectious disease service is following. At this time patient denies chest pain or shortness breath. Patient reports chronic pain. Patient denies nausea vomiting or diarrhea. Patient denies any urinary burning or frequency On 07/01/2021 patient was seen and examined on the medical floor she is alert and oriented 3 in no apparent distress she is complaining of difficulty sleeping at night otherwise she denies any complaints, vital exam reveals a temperature of 97.5 pulse 100 respirations 17 blood pressure 106/60 pulse ox 97% on room air, laboratory data reveals a white blood count of 7.07 hemoglobin 8.1 platelet count 294 sodium 135 BUN 36 creatinine 1.49 at this time patient is maintained on TPN she is still having some oral intake possibility of PEG tube placement was raised by Dr. Gregorio, patient had previous gastrectomy, she may need an EGD to evaluate whether a PEG tube is a possibility for her. Louise Herman, he is a 76-year-old female who presented to [facility] with a chief complaint of generalized weakness, dehydration was el evated BUN and creatinine and leukocytosis She was evaluated in the emergency room vital examination on presentation revealed a temperature of 98.3 pulse 95 respiration 22 blood pressure 135/89 pulse ox 100% on room air Laboratory data revealed a white blood count of 11.3 hemoglobin 8.8 platelet count 356 sodium 139 potassium 3.9 chloride 106 CO2 18 BUN 47 creatinine 2.37 Testing in the emergency room revealed chest x-ray revealed a right upper lobe and left mid lung opacities, EKG was normal Patient was admitted to medical floor for further evaluation and treatment. Patient was recently discharged from [facility] after an admission for pneumonia and sepsis with positive blood culture patient is followed by Dr. Gregorio then was maintained on IV cefepime at home. Patient also has multiple medical problem and is maintained on TPN at home. On 06/28/2021 patient is alert and oriented 3. Antibiotics have been adjusted to Maxipime per infectious disease. Computed tomography scan of the chest also ordered. This time patient complains of generalized pain. Patient denies nausea vomiting or diarrhea. Patient denies any urinary burning or frequency. White blood cell improving to 7.8. Creatinine 2.09 and bun 39 On 06/29/2021 patient was seen and examined on the medical floor she is alert and oriented 3 in no apparent distress, she denies any new complaints vital exam reveals a temperature of 97.4 pulse 105 respiration 16 blood pressure 168/89 pulse ox 98% on room air, laboratory data reveals a white blood count of 9.0 to hemoglobin 7.5 platelet count 300 sodium 137 potassium 4.2 chloride 104 CO2 31 BUN 30 creatinine 1.55 computed tomography scan of the chest was ordered by Dr. Gregorio and reveals persistent pulmonary nodules and thick areas of pulmonary consultation with a newly seen areas of groundglass opacities. At this time repeat swallow evaluation was ordered and pulmonary consultation was requested On 06/30/2021 patient is alert and oriented 3. White blood cell 9.05, hemoglobin 7.9, bun 30 and creatinine 1.60. Patient is resting comfortably bed. Patient remains on IV antibiotic cefepime. Pulmonary and infectious disease service is following. At this time patient denies chest pain or shortness breath. Patient reports chronic pain. Patient denies nausea vomiting or diarrhea. Patient denies any urinary burning or frequency On 07/01/2021 patient was seen and examined on the medical floor she is alert and oriented 3 in no apparent distress she is complaining of difficulty sleeping at night otherwise she denies any complaints, vital exam reveals a temperature of 97.5 pulse 100 respirations 17 blood pressure 106/60 pulse ox 97% on room air, laboratory data reveals a white blood count of 7.07 hemoglobin 8.1 platelet count 294 sodium 135 BUN 36 creatinine 1.49 at this time patient is maintained on TPN she is still having some oral intake possibility of PEG tube placement was raised by Dr. Gregorio, patient had previous gastrectomy, she may need an EGD to evaluate whether a PEG tube is a possibility for her. 07/03/2021 patient is alert and oriented is no need for further inpatient workup patient will be DC'd outpatient with possibility of bronchoscopy vs, PET scan patient to follow-up with pulmonary services outpatient. Discussed case with infectious disease service is recommending patient be discharged on Avelox. Patient will be DC'd on Avelox for 10 days. Patient's Vistaril DC'd due to interaction with Avelox may resume after completion of antibiotic. Patient to follow-up PCP consulting providers for further management. Patient Condition at Discharge: Stable Plan - Discharge Summary Discharge Rx Participant: Yes New Discharge Prescriptions: New Moxifloxacin HCl [Avelox] 400 mg PO DAILY 10 Days #10 tablet amLODIPine [Norvasc] 5 mg PO DAILY 30 Days #30 tab Continue Ferrous Sulfate [Iron (65 MG Elemental)] 325 mg PO DAILY@1200 calcitrioL [Calcitriol] 1 mcg PO MOWEFR busPIRone HCL [Buspar] 30 mg PO BID Pantoprazole Sodium [Protonix] 40 mg PO BID 30 Days #60 tablet[address] Hilario/APAP/Caff 50-325-40Mg [Fioricet 50-325-40] 1 tab PO BID PRN PRN Reason: Migraine Headache buPROPion XL [Wellbutrin XL] 150 mg PO DAILY fentaNYL 75MCG/HR PATCH [Duragesic 75MCG/HR] 1 patch TRANSDERM Q72H 3 Days #3 patch Mirtazapine [Remeron] 45 mg PO HS Albuterol Sulfate [Albuterol Sulfate Hfa] 2 puff INHALATION RT-Q6H PRN PRN Reason: Shortness Of Breath oxyCODONE-APAP 7.5-325MG [Percocet 7.5-325 mg] 1 tab PO BID buPROPion XL [Wellbutrin XL] 300 mg PO DAILY Tpn 1 dose IV DAILY@1900 Budesonide/Formoterol Fumarate [Symbicort 160-4.5 Mcg Inhaler] 2 puff INHALATION RT-BID Loratadine [Claritin] 10 mg PO DAILY Thiamine [Vitamin B-1] 100 mg PO DAILY SUMAtriptan succinate [Imitrex] 50 mg PO BID PRN PRN Reason: Migraine Headache Aspirin EC [Ecotrin Low Dose] 81 mg PO DAILY Levothyroxine Sodium [Synthroid] 100 mcg PO DAILY@0630 30 Days #30 tab Famotidine [Pepcid] 20 mg PO DAILY PRN PRN Reason: Heartburn Discontinued Furosemide [Lasix] 20 mg PO DAILY #6 tab hydrOXYzine pamoate [Vistaril] 50 mg PO TID Discharge Medication List Ferrous Sulfate [Iron (65 MG Elemental)] 325 mg PO DAILY@1200 11/06/15 [History] calcitrioL [Calcitriol] 1 mcg PO MOWEFR 06/07/19 [History] busPIRone HCL [Buspar] 30 mg PO BID 04/14/20 [History] Pantoprazole Sodium [Protonix] 40 mg PO BID 30 Days #60 tablet. 04/27/20 [Rx] Butalb/APAP/Caff 50-325-40Mg [Fioricet 50-325-40] 1 tab PO BID PRN 06/30/20 [History] buPROPion XL [Wellbutrin XL] 150 mg PO DAILY 11/04/20 [History] fentaNYL 75MCG/HR PATCH [Duragesic 75MCG/HR] 1 patch TRANSDERM Q72H 3 Days #3 patch 12/13/20 [Rx] Tpn 1 dose IV DAILY@1900 02/20/21 [History] buPROPion XL [Wellbutrin XL] 300 mg PO DAILY 02/20/21 [History] Albuterol Sulfate [Albuterol Sulfate Hfa] 2 puff INHALATION RT-Q6H PRN 04/07/21 [History] Budesonide/Formoterol Fumarate [Symbicort 160-4.5 Mcg Inhaler] 2 puff INHALATION RT-BID 04/07/21 [History] Loratadine [Claritin] 10 mg PO DAILY 04/07/21 [History] Mirtazapine [Remeron] 45 mg PO HS 04/07/21 [History] SUMAtriptan succinate [Imitrex] 50 mg PO BID PRN 05/04/21 [History] Thiamine [Vitamin B-1] 100 mg PO DAILY 05/04/21 [History] Aspirin EC [Ecotrin Low Dose] 81 mg PO DAILY 05/12/21 [History] oxyCODONE-APAP 7.5-325MG [Percocet 7.5-325 mg] 1 tab PO BID 06/06/21 [History] Levothyroxine Sodium [Synthroid] 100 mcg PO DAILY@0630 30 Days #30 tab 06/19/21 [Rx] Famotidine [Pepcid] 20 mg PO DAILY PRN 06/26/21 [History] Moxifloxacin HCl [Avelox] 400 mg PO DAILY 10 Days #10 tablet 07/03/21 [Rx] amLODIPine [Norvasc] 5 mg PO DAILY 30 Days #30 tab 07/03/21 [Rx] Follow up Appointment(s)/Referral(s): Ale Eli MD [Primary Care Provider] - 1-2 days [facility], [NON-STAFF] - 1 Week Geovanny Womack MD [STAFF PHYSICIAN] - 1 Week Activity/Diet/Wound Care/Special Instructions: [facility] ([phone]) is supplier of home TPN and can be contact if any questions or concerns.
--- NOTE | 2021-07-03 13:07 | P.PN ---
<Lesly,Leyla - Last Filed: 07/03/21 13:03> Subjective Progress Note Date: 07/03/21 This is a very pleasant 76-year-old female patient well known to our practice. She has a history of chronic obstructive pulmonary disease with multiple COPD exacerbations and admissions, chronic aspiration pneumonia, fever is previous ga strectomy and receives TPN in the outpatient setting, hypothyroidism, anorexia/cachexia syndrome. She has chronic changes in her chest x-ray including right upper lobe and left midlung. She follows with ID services and has a port in for frequent IV antibiotics. Most recently in February she had M RSA in her bronchial wash. She's had multiple admissions for recurrent pneumonias. She was just recently here for 13 days and was home for 7 days and presented again with similar symptoms or shortness breath, cough congestion. She also was found to have abnormal out patient labs. Chest x-ray revealed moderate confluent opacities in the right upper and left midlung calixto. PICC line in place. No significant change compared to previous chest x-ray 06/07/2021. CAT scan revealed persistent pulmonary nodules and thick areas of pulmonary consolidation/soft tissue thickening demonstrating minimal changes described above. New areas of groundglass opacities. Suspect persistent extensive chronic infection, atypical infection, neoplasm not totally excluded. Blood cultures reveal no growth. Urine cultures reveal no growth. White count 9.0. Hemoglobin 7.5. Sodium 137. Potassium 4.2. BUN 30. Creatinine 1.55. She's been initiated on DuoNeb inhalations, Symbicort, antibiotics in the form of cefepime. Lovenox for DVT prophylaxis. She is seen today in consultation on the regular medical floor. She is currently sitting up in bed. Awake and alert in no acute distress. Maintaining good O2 saturations in the 90s on room air. She's been afebrile. Hemodynamically stable. The patient is seen today 06/30/2021 in follow-up. She is currently resting comfortably in bed. Awake and alert in no acute distress. Continues to maintain good O2 saturations in the 90s on room air. She's been afebrile. Blood cultures reveal no growth. Urine culture revealed no growth. White count 9.0. Hemoglobin 7.9. Sodium 136. Potassium 4.6. BUN 30. Creatinine 1.60. She is continued on Symbicort, DuoNeb inhalations. Antibiotics in the form of cefepime. Lovenox for DVT prophylaxis. Being nourished with TPN and lipids. The patient is seen today 07/02/2021 in follow-up on the regular medical floor. She is awake and alert in no acute distress. Resting comfortably in bed. Maint aining good O2 saturations in the 90s on room air. She continues to be afebrile. Blood cultures reveal no growth. Urine culture revealed no growth. Sodium 138. Potassium 5.1. BUN 41. Creatinine 1.6. Glucose 112. She remains on TPN and lipids for nutritional support. Continued on Symbicort, DuoNeb inhalations. Antibiotics in the form of cefepime. Lovenox for DVT prophylaxis. Her main complaint is ongoing issues with chest wall discomfort. The patient is seen today 07/03/2021 in follow-up on the regular medical floor. She is currently up ambulating in her room. Awake and alert in no acute distress. Maintaining O2 saturations in the 90s on room air. She is continued on DuoNeb inhalations, Symbicort. Remains on antibiotics in the form of cefepime. Lovenox for DVT prophylaxis. She continues to be nourished with TPN. Sodium 135. Potassium 5.1. BUN 45. Creatinine 1.6. AST 25. ALT 21. Objective - Vital Signs Vital signs: Vital Signs Temp 97.6 F 07/03/21 06:57 Pulse 77 07/03/21 10:58 Resp 16 07/03/21 06:57 BP 116/64 07/03/21 06:57 Pulse Ox 100 07/03/21 06:57 Intake & Output 07/02/21 07/03/21 07/03/21 18:59 06:59 18:59 Intake Total 340 Output Total 800 Balance -460 Weight 41.6 kg Intake: Oral 340 Output: Urine 800 Other: Voiding Method Toilet # Voids 1 - Exam GENERAL EXAM: Alert, very pleasant, frail, cachectic 76-year-old female patient, on room air, comfortable in no apparent distress. HEAD: Normocephalic. EYES: Normal reaction of pupils, equal size. NOSE: Clear with pink turbinates. THROAT: No erythema or exudates. NECK: No masses, no JVD. CHEST: No chest wall deformity. LUNGS: Equal air entry with bilateral scattered rhonchi. CVS: S1 and S2 normal with no audible murmur, regular rhythm. ABDOMEN: No hepatosplenomegaly, normal bowel sounds, no guarding or rigidity. SPINE: No scoliosis or deformity SKIN: No rashes CENTRAL NERVOUS SYSTEM: No focal deficits, tone is normal in all 4 extremities. EXTREMITIES: PICC line in place. There is no peripheral edema. No clubbing, no cyanosis. Peripheral pulses are intact. - Labs CBC & Chem 7: 07/01/21 06:21 07/03/21 07:28 Labs: Abnormal Lab Results - Last 24 Hours (Table) 07/02/21 07/03/21 07/03/21 Range/Units 17:52 06:58 07:28 BUN 44.5 H (9.0-27.0) mg/dL Creatinine 1.6 H (0.6-1.5) mg/dL Est GFR (CKD-EPI)AfAm 35.6 L (60.0-200.0) Est GFR (CKD-EPI)NonAf 30.7 L (60.0-200.0) BUN/Creatinine Ratio 27.30 H (12.00-20.00) Ratio POC Glucose (mg/dL) 117 H 103 H (75-99) mg/dL Magnesium 2.5 H (1.5-2.4) mg/dL Total Bilirubin <0.15 L (0.30-1.20) mg/dL Alkaline Phosphatase 217 H (41-126) U/L Albumin/Globulin Ratio 1.47 L (1.60-3.17) g/dL 07/03/21 Range/Units 11:58 BUN (9.0-27.0) mg/dL Creatinine (0.6-1.5) mg/dL Est GFR (CKD-EPI)AfAm (60.0-200.0) Est GFR (CKD-EPI)NonAf (60.0-200.0) BUN/Creatinine Ratio (12.00-20.00) Ratio POC Glucose (mg/dL) 171 H (75-99) mg/dL Magnesium (1.5-2.4) mg/dL Total Bilirubin (0.30-1.20) mg/dL Alkaline Phosphatase (41-126) U/L Albumin/Globulin Ratio (1.60-3.17) g/dL Microbiology - Last 24 Hours (Table) 06/26/21 20:20 Blood Culture - Final Blood No Growth after 144 hours 06/26/21 20:03 Blood Culture - Final Blood No Growth after 144 hours Assessment and Plan Assessment: 1 Acute on chronic renal failure with current creatinine 1.6 2 Non-anion gap metabolic acidosis secondary to acute renal failure 3 Recent urinary tract infection 4 Chronic kidney disease with atrophic right kidney 5 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 Maintained on TPN in the outpatient setting 6 History of frequent aspiration pneumonias and MRSA pneumonia with some chronic right upper lung and left midlung changes his last bronchoscopy in February 2021 7 Gastroesophageal reflux disease. 8 History of hypothyroidism. 9 History of migraine cephalgia. 10 History of pancreatitis. Plan: The patient was seen and evaluated Stable and on room air Remains on cefepime for now Previous bronchoscopy with brushings and washings did not reveal any evidence of malignancy May consider repeat bronchoscopy with biopsies versus outpatient PET scan The patient did have a PET scan 2-3 years ago at [facility] without any evidence of malignancy Stable for discharge from the pulmonary standpoint. We'll continue with outpatient workup Antibiotics per ID services I have personally seen and examined the patient, performed the documentation and the assessment and plan as written. Number of minutes spent on the visit: 10. <Geovanny Womack - Last Filed: 07/03/21 13:43> Objective - Vital Signs Vital signs: Vital Signs Temp 97.6 F 07/03/21 06:57 Pulse 77 07/03/21 10:58 Resp 16 07/03/21 06:57 BP 116/64 07/03/21 06:57 Pulse Ox 100 07/03/21 06:57 Intake & Output 07/02/21 07/03/21 07/03/21 18:59 06:59 18:59 Intake Total 340 Output Total 800 Balance -460 Weight 41.6 kg Intake: Oral 340 Output: Urine 800 Other: Voiding Method Toilet # Voids 1 - Labs CBC & Chem 7: 07/01/21 06:21 07/03/21 07:28 Labs: Abnormal Lab Results - Last 24 Hours (Table) 07/02/21 07/03/21 07/03/21 Range/Units 17:52 06:58 07:28 BUN 44.5 H (9.0-27.0) mg/dL Creatinine 1.6 H (0.6-1.5) mg/dL Est GFR (CKD-EPI)AfAm 35.6 L (60.0-200.0) Est GFR (CKD-EPI)NonAf 30.7 L (60.0-200.0) BUN/Creatinine Ratio 27.30 H (12.00-20.00) Ratio POC Glucose (mg/dL) 117 H 103 H (75-99) mg/dL Magnesium 2.5 H (1.5-2.4) mg/dL Total Bilirubin <0.15 L (0.30-1.20) mg/dL Alkaline Phosphatase 217 H (41-126) U/L Albumin/Globulin Ratio 1.47 L (1.60-3.17) g/dL 07/03/21 Range/Units 11:58 BUN (9.0-27.0) mg/dL Creatinine (0.6-1.5) mg/dL Est GFR (CKD-EPI)AfAm (60.0-200.0) Est GFR (CKD-EPI)NonAf (60.0-200.0) BUN/Creatinine Ratio (12.00-20.00) Ratio POC Glucose (mg/dL) 171 H (75-99) mg/dL Magnesium (1.5-2.4) mg/dL Total Bilirubin (0.30-1.20) mg/dL Alkaline Phosphatase (41-126) U/L Albumin/Globulin Ratio (1.60-3.17) g/dL Microbiology - Last 24 Hours (Table) 06/26/21 20:20 Blood Culture - Final Blood No Growth after 144 hours 06/26/21 20:03 Blood Culture - Final Blood No Growth after 144 hours Assessment and Plan Assessment: I have personally seen and examined the patient and reviewed the documentation. I performed a joint evaluation with the nurse practitioner in this evaluation was done more than 20 minutes. I fully agree with the documentation above and the plan of care. Joint evaluation that was done along with a nurse practitioner. Condition is stable for now.
--- NOTE | 2021-07-03 14:13 | P.PN ---
Subjective Progress Note Date: 07/02/21 Principal diagnosis: Pneumonia Patient is a 76-year-old female with a past medical history significant for recurrent pneumonia did have a history recurrent PICC line infe ction with the patient has for nutritional support, presenting to the hospital with feeling weak cough and lower rib cage pain. On today's evaluation that is 07/02/2021, the patient remains to be afebrile, the patient is breathing comfortably on room air, the patient has been complaining of abdominal and lower rib cage pain, patient denies having any vomiting no diarrhea Objective - Vital Signs Vital signs: Vital Signs Temp 97.8 F 07/02/21 08:00 Pulse 72 07/02/21 08:04 Resp 18 07/02/21 10:03 BP 168/73 07/02/21 08:00 Pulse Ox 97 07/02/21 08:00 Intake & Output 07/01/21 07/02/21 07/02/21 18:59 06:59 18:59 Intake Total 1031 222 Output Total 200 700 Balance 831 -700 222 Weight 42.2 kg 43 kg Intake: Intake, IV Titration 1031 Amount Mvi, Adult No.4 with Vit 1031 K 10 ml Trace (Conc-1Ml/ Dose) 1 ml Parenteral Electrolytes 20 ml In Amino Acid 4.25%-D10w 1, 000 ml @ 50 mls/hr IV .BY DURATION CHAD Rx#: [id number] Oral 222 Output: Urine 200 700 Other: Voiding Method Toilet Toilet Toilet # Voids 4 - Exam GENERAL DESCRIPTION: An elderly female lying in bed in no distress RESPIRATORY SYSTEM: Unlabored breathing , decreased breath sounds at bases HEART: S1 S2 regular rate and rhythm , ABDOMEN: Soft , no tenderness EXTREMITIES: No edema feet - Labs CBC & Chem 7: 07/01/21 06:21 07/03/21 07:28 Labs: Abnormal Lab Results - Last 24 Hours (Table) 07/01/21 07/01/21 07/01/21 Range/Units 06:21 12:56 17:42 BUN (9.0-27.0) mg/dL Creatinine (0.6-1.5) mg/dL Est GFR (CKD-EPI)AfAm (60.0-200.0) Est GFR (CKD-EPI)NonAf (60.0-200.0) BUN/Creatinine Ratio (12.00-20.00) Ratio Glucose (70-110) mg/dL POC Glucose (mg/dL) 109 H 135 H (75-99) mg/dL Iron 19 L (50-170) ug/dL % Saturation 5.79 L (12.00-45.00) 07/02/21 07/02/21 Range/Units 05:33 06:07 BUN 40.9 H (9.0-27.0) mg/dL Creatinine 1.6 H (0.6-1.5) mg/dL Est GFR (CKD-EPI)AfAm 37.3 L (60.0-200.0) Est GFR (CKD-EPI)NonAf 32.1 L (60.0-200.0) BUN/Creatinine Ratio 26.05 H (12.00-20.00) Ratio Glucose 112 H (70-110) mg/dL POC Glucose (mg/dL) 116 H (75-99) mg/dL Iron (50-170) ug/dL % Saturation (12.00-45.00) Microbiology - Last 24 Hours (Table) 06/26/21 20:20 Blood Culture - Preliminary Blood No Growth after 120 hours 06/26/21 20:03 Blood Culture - Preliminary Blood No Growth after 120 hours Assessment and Plan (1) Persistent pneumonia Current Visit: Yes Status: Acute Code(s): J18.9 - PNEUMONIA, UNSPECIFIED ORGANISM SNOMED Code(s): 252116255 Plan: 1patient is in the hospital with weakness lower rib cage pain in this patient did have a abnormal chest x-ray and CT showing evidence of consolidation concerning for atypical infection versus recurrent aspiration pneumonia 2-patient continue with Aspiration precautions and cefepime and plan is for oral Avelox on discharge 3-patient may benefit from Gen. surgery evaluation for possible consideration for jejunostomy tube placement for feeding to prevent recurrent aspiration and also get rid off TPN to decrease risk of line sepsis, this was explained to the patient again Time with Patient: Less than 30
--- NOTE | 2021-07-03 14:14 | P.PN ---
Subjective Progress Note Date: 07/03/21 Principal diagnosis: Pneumonia Patient is a 76-year-old female with a past medical history significant for recurrent pneumonia did have a history recurrent PICC line infe ction with the patient has for nutritional support, presenting to the hospital with feeling weak cough and lower rib cage pain. On today's evaluation that is 07/03/2021, the patient denies any fever or chills, the patient is breathing comfortably on room air, patient denies having any chest pain or any worsening cough no vomiting no abdominal pain no diarrhea Objective - Vital Signs Vital signs: Vital Signs Temp 97.6 F 07/03/21 06:57 Pulse 77 07/03/21 10:58 Resp 16 07/03/21 06:57 BP 116/64 07/03/21 06:57 Pulse Ox 100 07/03/21 06:57 Intake & Output 07/02/21 07/03/21 07/03/21 18:59 06:59 18:59 Intake Total 340 Output Total 800 Balance -460 Weight 41.6 kg Intake: Oral 340 Output: Urine 800 Other: Voiding Method Toilet # Voids 1 - Exam GENERAL DESCRIPTION: An elderly female lying in bed in no distress RESPIRATORY SYSTEM: Unlabored breathing , decreased breath sounds at bases HEART: S1 S2 regular rate and rhythm , ABDOMEN: Soft , no tenderness EXTREMITIES: No edema feet - Labs CBC & Chem 7: 07/01/21 06:21 07/03/21 07:28 Labs: Abnormal Lab Results - Last 24 Hours (Table) 07/02/21 07/03/21 07/03/21 Range/Units 17:52 06:58 07:28 BUN 44.5 H (9.0-27.0) mg/dL Creatinine 1.6 H (0.6-1.5) mg/dL Est GFR (CKD-EPI)AfAm 35.6 L (60.0-200.0) Est GFR (CKD-EPI)NonAf 30.7 L (60.0-200.0) BUN/Creatinine Ratio 27.30 H (12.00-20.00) Ratio POC Glucose (mg/dL) 117 H 103 H (75-99) mg/dL Magnesium 2.5 H (1.5-2.4) mg/dL Total Bilirubin <0.15 L (0.30-1.20) mg/dL Alkaline Phosphatase 217 H (41-126) U/L Albumin/Globulin Ratio 1.47 L (1.60-3.17) g/dL 07/03/21 Range/Units 11:58 BUN (9.0-27.0) mg/dL Creatinine (0.6-1.5) mg/dL Est GFR (CKD-EPI)AfAm (60.0-200.0) Est GFR (CKD-EPI)NonAf (60.0-200.0) BUN/Creatinine Ratio (12.00-20.00) Ratio POC Glucose (mg/dL) 171 H (75-99) mg/dL Magnesium (1.5-2.4) mg/dL Total Bilirubin (0.30-1.20) mg/dL Alkaline Phosphatase (41-126) U/L Albumin/Globulin Ratio (1.60-3.17) g/dL Microbiology - Last 24 Hours (Table) 06/26/21 20:20 Blood Culture - Final Blood No Growth after 144 hours 06/26/21 20:03 Blood Culture - Final Blood No Growth after 144 hours Assessment and Plan (1) Persistent pneumonia Current Visit: Yes Status: Acute Code(s): J18.9 - PNEUMONIA, UNSPECIFIED ORGANISM SNOMED Code(s): 595560301 Plan: 1patient is in the hospital with weakness lower rib cage pain in this patient did have a abnormal chest x-ray and CT showing evidence of consolidation concerning for atypical infection versus recurrent aspiration pneumonia 2-patient continue with Aspiration precautions and cefepime and plan was for oral Avelox on discharge however the patient is refusing oral antibiotics, we will try to arrange for a week of IV cefepime on discharge and possible outpatient workup to see the patient will qualify for jejunostomy tube for feeding, this was discussed with the nurse practitioner for admitting team Time with Patient: Less than 30
[2021-07-03 15:44] VITALS: BP 117/67; PULSE 102; TEMP 98.4
[2021-07-03 18:04] LABS: Basophils # (A) 0.05 X 10*3/uL (0.00-0.10); Basophils % (A) 0.8 %; Eosinophils # (A) 0.61 X 10*3/uL (0.04-0.35); Eosinophils % (A) 9.5 %; Immature Grans, Automated 0.3 %; Lymphocytes # (A) 1.51 X 10*3/uL (0.90-5.00); Lymphocytes % (A) 23.5 %; Monocytes # (A) 0.84 X 10*3/uL (0.20-1.00); Monocytes % (A) 13.1 %; NRBC Per 100 WBC 0 /100 WBCS (0.0-0.0); Neutrophils # (A) 3.39 X 10*3/uL (1.80-7.70); Neutrophils % (A) 52.8 %
[2021-07-03 18:05] LABS: HCT 29.5 % (37.2-46.3); HGB 8.8 g/dL (12.0-15.0); MCH 26.6 pg (27.0-32.0); MCHC 29.8 g/dL (32.0-37.0); MCV 89.1 fL (80.0-97.0); Mean Platelet Volume 11.2 fL (9.5-12.2); Platelet Count 267 X 10*3/uL (140-440); RBC 3.31 X 10*6/uL (4.10-5.20); RDW 21.1 % (11.5-14.5); WBC 6.42 X 10*3/uL (4.50-10.00)
[2021-07-03 18:15] LABS: Anisocytosis (M) 2+
[2021-07-03] MEDS ORDERED: 1: MVI, ADULT NO.4 WITH VIT K 10 ML, TRACE (CONC-1ML/DOSE) 1 ML, SODIUM CHLORIDE 4MEQ/ML IV SCH ×12 (23:00)
== END 2021-07-03 17:03 | disposition home health service (06) | DRG 682 ==
LOC: EC 18:40 → 4SSUR 21:56 → 6NMEDSUR 06-27 03:26
PROVIDERS: ADMIT Internal Medicine; ATTEND Internal Medicine
PROC: 3E0436Z Introduction of Nutritional Substance into Central Vein, Percutaneous Approach (ICD-10-PCS; principal; 2021-06-26)
DX: N17.9 Acute kidney failure, unspecified (principal); J18.9 Pneumonia, unspecified organism; N39.0 Urinary tract infection, site not specified; E87.2 Acidosis; J44.0 Chronic obstructive pulmonary disease with (acute) lower respiratory infection; R64 Cachexia; Z68.1 Body mass index [BMI] 19.9 or less, adult; N18.4 Chronic kidney disease, stage 4 (severe); Z87.01 Personal history of pneumonia (recurrent); D63.1 Anemia in chronic kidney disease; E03.9 Hypothyroidism, unspecified; D50.9 Iron deficiency anemia, unspecified; E86.0 Dehydration; E86.1 Hypovolemia; F32.A Depression, unspecified; F41.0 Panic disorder [episodic paroxysmal anxiety]; G89.29 Other chronic pain; I12.9 Hypertensive chronic kidney disease with stage 1 through stage 4 chronic kidney disease, or unspecified chronic kidney disease; R63.0 Anorexia; I73.9 Peripheral vascular disease, unspecified; K21.9 Gastro-esophageal reflux disease without esophagitis; Z79.51 Long term (current) use of inhaled steroids; Z79.82 Long term (current) use of aspirin; Z79.890 Hormone replacement therapy; Z79.899 Other long term (current) drug therapy; Z80.41 Family history of malignant neoplasm of ovary; Z80.51 Family history of malignant neoplasm of kidney; Z82.49 Family history of ischemic heart disease and other diseases of the circulatory system; Z86.14 Personal history of Methicillin resistant Staphylococcus aureus infection; Z86.16 Personal history of COVID-19; Z86.73 Personal history of transient ischemic attack (TIA), and cerebral infarction without residual deficits; Z87.11 Personal history of peptic ulcer disease; Z90.3 Acquired absence of stomach [part of]; Z90.710 Acquired absence of both cervix and uterus; Z60.2 Problems related to living alone; Z79.891 Long term (current) use of opiate analgesic; Z87.440 Personal history of urinary (tract) infections; Z53.29 Procedure and treatment not carried out because of patient's decision for other reasons
CPT/HCPCS: 36415; 71046; 71250; 80048; 80053; 81001; 82140; 82550; 82728; 83540; 83550; 83605; 83690; 83735; 84100; 84145; 84439; 84443; 84478; 84484; 85025; 86140; 87040; 87086; 87635; 93005; 94640; 94760; 96361; 96372; 96374; 96375; 99285

== ENCOUNTER 2021-08-08 16:44 | Inpatient (IN) | payer MEDICARE, OTHER ==
--- NOTE | 2021-08-08 17:48 | XR ---
EXAMINATION: XR chest 2V DATE AND TIME: 08/08/2021 5:28 PM CLINICAL INDICATION: Weakness TECHNIQUE: AP and lateral COMPARISON: 06/26/2021 AP and lateral chest radiographs FINDINGS: A striking bilateral mid lung zone ill-defined consolidation/soft tissue abnormality is redemonstrate d, with evidence of mild interval increase in the amount of airlessness, consistent with mild interva l advancement of the process, particularly on the right. The pleural spaces are negative. The cardiac silhouette is not enlarged. The remainder of the mediastinal silhouette appears unremarka ble. The skeletal structures and soft tissues are negative for acute findings. IMPRESSION: Bilateral marked pulmonary abnormalities redemonstrated, with evidence of mild interval progression o n the right.
[2021-08-08 18:18] LABS: Anisocytosis Slight; Basophils # (A) 0.1 k/uL (0-0.2); Basophils % (A) 1 %; Eosinophils # (A) 0.3 k/uL (0-0.7); Eosinophils % (A) 2 %; HCT 39.6 % (34.0-46.0); HGB 12.5 gm/dL (11.4-16.0); Hypochromasia Slight; Lymphocytes # (A) 0.8 k/uL (1.0-4.8); Lymphocytes % (A) 7 %; MCH 28.8 pg (25.0-35.0); MCHC 31.6 g/dL (31.0-37.0); MCV 91.1 fL (80.0-100.0); Mean Platelet Volume 6.5; Monocytes # (A) 0.3 k/uL (0-1.0); Monocytes % (A) 3 %; Neutrophils # (A) 9.7 k/uL (1.3-7.7); Neutrophils % (A) 86 %; Platelet Count 420 k/uL (150-450); RBC 4.35 m/uL (3.80-5.40); WBC 11.3 k/uL (3.8-10.6)
[2021-08-08 18:25] LABS: Albumin 4.5 g/dL (3.5-5.0); Calcium 9.8 mg/dL (8.4-10.2); Total Bilirubin 0.6 mg/dL (0.2-1.3); Total Protein 8.5 g/dL (6.3-8.2)
[2021-08-08 18:28] LABS: INR 0.9 (<1.2); Partial Thromboplastin Time 25.7 sec (22.0-30.0); Prothrombin Time 9.9 sec (9.0-12.0)
--- NOTE | 2021-08-08 20:08 | ED ---
Weakness HPI - General Chief complaint: Weakness Stated complaint: Weakness Time Seen by Provider: 08/08/21 19:19 Source: patient Mode of arrival: ambulatory Limitations: no limitations - History of Present Illness Initial comments: This is a patient with multiple medical issues. She presents to the restaurant today stating that she was on parenteral nutrition up to 2 weeks ago. Apparently this was taken out by her guardian. Patient was placed on hospice. However the patient lives by herself in an apartment states that she does not want to be on hospice. Patient is ficus in court. Patient was sent here by her primary care physician for placement. Patient feels like she is starving to because she cannot eat without the TPN. Patient has had weight loss. Patient states she also has a history of aspirating. Patient states she [place] tiny amount of your group but is not doing well without the TPN. , General weakness No headache, no fever or chills, no changes in vision or hearing, no sore throat or difficulty with speech, no neck pain, no chest pain or shortness of breath, no abdominal pain, no nausea or vomiting, no changes in urination or bowel movements, no numbness or tingling, no extremity pain, no skin rashes or lesions. MD Complaint: generalized weakness - Related Data Home Medications Medication Instructions Recorded Confirmed Ferrous Sulfate [Iron (65 MG 325 mg PO DAILY@1200 11/06/15 08/08/21 Elemental)] calcitrioL [Calcitriol] 1 mcg PO MOWEFR 06/07/19 08/08/21 busPIRone HCL [Buspar] 30 mg PO BID 04/14/20 08/08/21 Butalb/APAP/Caff 50-325-40Mg 1 tab PO Q6H 06/30/20 08/08/21 [Fioricet 50-325-40] buPROPion XL [Wellbutrin XL] 150 mg PO DAILY 11/04/20 08/08/21 buPROPion XL [Wellbutrin XL] 300 mg PO DAILY 02/20/21 08/08/21 Albuterol Sulfate [Albuterol 2 puff INHALATION RT-Q6H PRN 04/07/21 08/08/21 Sulfate Hfa] Budesonide/Formoterol Fumarate 2 puff INHALATION RT-BID 04/07/21 08/08/21 [Symbicort 160-4.5 Mcg Inhaler] Aspirin EC [Ecotrin Low Dose] 81 mg PO DAILY 05/12/21 08/08/21 Furosemide [Lasix] 20 mg PO DAILY PRN 08/08/21 08/08/21 HYDROmorphone [Dilaudid] 2 mg PO Q6H PRN 08/08/21 08/08/21 Methadone [Dolophine] 5 mg PO Q6H 08/08/21 08/08/21 Mirtazapine [Remeron] 45 mg PO HS 08/08/21 08/08/21 Omeprazole 20 mg PO DAILY 08/08/21 08/08/21 Ondansetron [Zofran ODT] 4 mg PO Q6H PRN 08/08/21 08/08/21 Potassium Chloride ER [K-Dur 10] 30 meq PO DAILY@1200 08/08/21 08/08/21 hydrOXYzine pamoate [Vistaril] 100 mg PO TID 08/08/21 08/08/21 polyethylene glycoL 3350 [Miralax] 17 gm PO DAILY PRN 08/08/21 08/08/21 Previous Rx's Medication Instructions Recorded Levothyroxine Sodium [Synthroid] 100 mcg PO DAILY@0630 30 Days #30 06/19/21 tab Allergies Allergy/AdvReac Type Severity Reaction Status Date / Time mold Allergy Itching Verified 08/08/21 20:46 denosumab [From Prolia] AdvReac SEVERE Verified 08/08/21 20:46 CALCIUM LOSS morphine AdvReac Confusion Verified 08/08/21 20:46 DUST Allergy Itching Uncoded 08/08/21 20:46 Review of Systems ROS Statement: Those systems with pertinent positive or pertinent negative responses have been documented in the HPI. ROS Other: All systems not noted in ROS Statement are negative. Past Medical History Past Medical History: Asthma, COPD, CVA/TIA, GERD/Reflux, Memory Impairment, Osteoarthritis (OA), Pneumonia, Renal Disease, Respiratory Disorder, Thyroid Disorder Additional Past Medical History / Comment(s): Aspiration, pneumonias, covid pneumonia, protein calorie malnutrition, pt is on TPN/ manage thru [facility], chronic anemia, gastric ulcers/PUD, pancreatitis, bowel obstruction/surgery, constipation, CKD stage IV, TIA, chronic migraines, chronic back/cervical pain/spinal stenosis, hypothyroid, hyponatremia. History of Any Multi-Drug Resistant Organisms: Other MDRO Past Surgical History: Back Surgery, Bowel Resection, Hysterectomy, Joint Replacement Additional Past Surgical History / Comment(s): LOWER BACK SURGERY lamenectomy/discetomy then had a revison of that sx. 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, nasal sx d/t broken nose, colonoscopy/egd, PAIN CLINIC PROCEDURES, PORT A CATH INSERTION, LT ADEOLA Past Anesthesia/Blood Transfusion Reactions: No Reported Reaction Additional Past Anesthesia/Blood Transfusion Reaction / Comment(s): PT RECIEVED BLOOD TRANSFUSIONS AFTER STOMACH SURGERY Past Psychological History: Anxiety, Depression, Panic Disorder Smoking Status: Never smoker Past Alcohol Use History: None Reported Past Drug Use History: None Reported - Past Family History Father Family Medical History: Cancer, Coronary Artery Disease (CAD) Additional Family Medical History / Comment(s): FATHER HAD BLADDER AND KIDNEY CANCER. FATHER HAD TB WHEN HE WAS A CHILD .FATHER AT AGE 87. Mother Family Medical History: Cancer Additional Family Medical History / Comment(s): MOTHER AT AGE 58 OF OVARIAN CANCER. General Exam - General Exam Comments Initial Comments: Cachectic appearing 76-year-old female in minimal distress. Does not appear to be ill or toxic. Patient is alert and oriented 4. Cranial nerves II through XII are intact. Limitations: no limitations General appearance: alert, in no apparent distress Head exam: Present: atraumatic, normocephalic, normal inspection Eye exam: Present: normal appearance, PERRL, EOMI. Absent: scleral icterus, conjunctival injection, periorbital swelling ENT exam: Present: normal exam, normal oropharynx, mucous membranes moist, TM's normal bilaterally, normal external ear exam Neck exam: Present: normal inspection, full ROM. Absent: tenderness, meningismus, lymphadenopathy Respiratory exam: Present: rhonchi (Occasional rhonchi). Absent: respiratory distress, wheezes, rales, stridor, chest wall tenderness, accessory muscle use Cardiovascular Exam: Present: normal rhythm, tachycardia, normal heart sounds. Absent: systolic murmur, diastolic murmur, rubs, gallop, clicks GI/Abdominal exam: Present: soft, normal bowel sounds. Absent: distended, tenderness, guarding, rebound, rigid Extremities exam: Present: normal inspection, full ROM, normal capillary refill. Absent: tenderness, pedal edema, joint swelling, calf tenderness Back exam: Present: normal inspection Neurological exam: Present: alert, oriented X3, CN II-XII intact Psychiatric exam: Present: normal affect, normal mood Skin exam: Present: warm, dry, intact, normal color. Absent: rash, cyanosis, diaphoretic, erythema, urticaria Course Vital Signs 08/08/21 08/08/21 17:07 19:00 Temperature 99.5 F Pulse Rate 120 H 108 H Respiratory 18 18 Rate Blood Pressure 171/85 170/91 O2 Sat by Pulse 95 99 Oximetry - Reevaluation(s) Reevaluation #1: 08/08/21 21:16 Medical record is reviewed Symptoms are unchanged Patient is informed of results and questions answered Patient in no distress 08/08/21 21:17 EKG Findings - EKG Comments: EKG Findings:: EKG shows sinus tachycardia with a rate of 115. Normal axis. No acute ST or T-wave changes. Normal intervals. Poor R-wave progression. Medical Decision Making - Medical Decision Making Patient told me she does not want to . Patient adamantly wants hospice status rescinded. Discussed case in detail with Azar who is on-call for the admitting physician, Dr. broussard. Patient admitted for suspected care home placement. Consult to nutrition and discharge planning. Consult to clinical social worker. The case was discussed in detail with ED attending physician. Presentation, findings, treatment plan discussed in detail. Dr. Saleh - Lab Data Result diagrams: 08/08/21 17:50 08/08/21 17:50 Lab Results 08/08/21 08/08/21 08/08/21 Range/Units 06:12 17:50 17:50 WBC 11.3 H (3.8-10.6) k/uL RBC 4.35 (3.80-5.40) m/uL Hgb 12.5 (11.4-16.0) gm/dL Hct 39.6 (34.0-46.0) % MCV 91.1 (80.0-100.0) fL MCH 28.8 (25.0-35.0) pg MCHC 31.6 (31.0-37.0) g/dL RDW 18.0 H (11.5-15.5) % Plt Count 420 (150-450) k/uL MPV 6.5 Neutrophils % 86 % Lymphocytes % 7 % Monocytes % 3 % Eosinophils % 2 % Basophils % 1 % Neutrophils # 9.7 H (1.3-7.7) k/uL Lymphocytes # 0.8 L (1.0-4.8) k/uL Monocytes # 0.3 (0-1.0) k/uL Eosinophils # 0.3 (0-0.7) k/uL Basophils # 0.1 (0-0.2) k/uL Hypochromasia Slight Anisocytosis Slight PT 9.9 (9.0-12.0) sec INR 0.9 (<1.2) APTT 25.7 (22.0-30.0) sec Sodium (137-145) mmol/L Potassium (3.5-5.1) mmol/L Chloride (98-107) mmol/L Carbon Dioxide (22-30) mmol/L Anion Gap mmol/L BUN (7-17) mg/dL Creatinine (0.52-1.04) mg/dL Est GFR (CKD-EPI)AfAm (>60 ml/min/1.73 sqM) Est GFR (CKD-EPI)NonAf (>60 ml/min/1.73 sqM) Glucose (74-99) mg/dL Plasma Lactic Acid Jonah (0.7-2.0) mmol/L Calcium (8.4-10.2) mg/dL Phosphorus 3.4 (2.5-4.5) mg/dL Magnesium 1.8 (1.6-2.3) mg/dL Total Bilirubin (0.2-1.3) mg/dL AST (14-36) U/L ALT (4-34) U/L Alkaline Phosphatase (38-126) U/L Troponin I (0.000-0.034) ng/mL Total Protein (6.3-8.2) g/dL Albumin (3.5-5.0) g/dL Amylase 124 H (30-110) U/L Lipase 137 (23-300) U/L Urine Color Urine Appearance (Clear) Urine pH (5.0-8.0) Ur Specific [place] (1.001-1.035) Urine Protein (Negative) Urine Glucose (UA) (Negative) Urine Ketones (Negative) Urine Blood (Negative) Urine Nitrite (Negative) Urine Bilirubin (Negative) Urine Urobilinogen (<2.0) mg/dL Ur Leukocyte Esterase (Negative) Urine RBC (0-5) /hpf Urine WBC (0-5) /hpf Ur Squamous Epith Cells (0-4) /hpf Urine Bacteria (None) /hpf Urine Mucus (None) /hpf Ur Yeast w Hyphae (None) /hpf 08/08/21 08/08/21 08/08/21 Range/Units 17:50 17:50 17:50 WBC (3.8-10.6) k/uL RBC (3.80-5.40) m/uL Hgb (11.4-16.0) gm/dL Hct (34.0-46.0) % MCV (80.0-100.0) fL MCH (25.0-35.0) pg MCHC (31.0-37.0) g/dL RDW (11.5-15.5) % Plt Count (150-450) k/uL MPV Neutrophils % % Lymphocytes % % Monocytes % % Eosinophils % % Basophils % % Neutrophils # (1.3-7.7) k/uL Lymphocytes # (1.0-4.8) k/uL Monocytes # (0-1.0) k/uL Eosinophils # (0-0.7) k/uL Basophils # (0-0.2) k/uL Hypochromasia Anisocytosis PT (9.0-12.0) sec INR (<1.2) APTT (22.0-30.0) sec Sodium 143 (137-145) mmol/L Potassium 4.0 (3.5-5.1) mmol/L Chloride 105 (98-107) mmol/L Carbon Dioxide 23 (22-30) mmol/L Anion Gap 15 mmol/L BUN 20 H (7-17) mg/dL Creatinine 1.57 H (0.52-1.04) mg/dL Est GFR (CKD-EPI)AfAm 37 (>60 ml/min/1.73 sqM) Est GFR (CKD-EPI)NonAf 32 (>60 ml/min/1.73 sqM) Glucose 102 H (74-99) mg/dL Plasma Lactic Acid Jonah 1.1 (0.7-2.0) mmol/L Calcium 9.8 (8.4-10.2) mg/dL Phosphorus (2.5-4.5) mg/dL Magnesium (1.6-2.3) mg/dL Total Bilirubin 0.6 (0.2-1.3) mg/dL AST 25 (14-36) U/L ALT 43 H (4-34) U/L Alkaline Phosphatase 402 H (38-126) U/L Troponin I <0.012 (0.000-0.034) ng/mL Total Protein 8.5 H (6.3-8.2) g/dL Albumin 4.5 (3.5-5.0) g/dL Amylase (30-110) U/L Lipase (23-300) U/L Urine Color Urine Appearance (Clear) Urine pH (5.0-8.0) Ur Specific [place] (1.001-1.035) Urine Protein (Negative) Urine Glucose (UA) (Negative) Urine Ketones (Negative) Urine Blood (Negative) Urine Nitrite (Negative) Urine Bilirubin (Negative) Urine Urobilinogen (<2.0) mg/dL Ur Leukocyte Esterase (Negative) Urine RBC (0-5) /hpf Urine WBC (0-5) /hpf Ur Squamous Epith Cells (0-4) /hpf Urine Bacteria (None) /hpf Urine Mucus (None) /hpf Ur Yeast w Hyphae (None) /hpf 08/08/21 Range/Units 20:10 WBC (3.8-10.6) k/uL RBC (3.80-5.40) m/uL Hgb (11.4-16.0) gm/dL Hct (34.0-46.0) % MCV (80.0-100.0) fL MCH (25.0-35.0) pg MCHC (31.0-37.0) g/dL RDW (11.5-15.5) % Plt Count (150-450) k/uL MPV Neutrophils % % Lymphocytes % % Monocytes % % Eosinophils % % Basophils % % Neutrophils # (1.3-7.7) k/uL Lymphocytes # (1.0-4.8) k/uL Monocytes # (0-1.0) k/uL Eosinophils # (0-0.7) k/uL Basophils # (0-0.2) k/uL Hypochromasia Anisocytosis PT (9.0-12.0) sec INR (<1.2) APTT (22.0-30.0) sec Sodium (137-145) mmol/L Potassium (3.5-5.1) mmol/L Chloride (98-107) mmol/L Carbon Dioxide (22-30) mmol/L Anion Gap mmol/L BUN (7-17) mg/dL Creatinine (0.52-1.04) mg/dL Est GFR (CKD-EPI)AfAm (>60 ml/min/1.73 sqM) Est GFR (CKD-EPI)NonAf (>60 ml/min/1.73 sqM) Glucose (74-99) mg/dL Plasma Lactic Acid Jonah (0.7-2.0) mmol/L Calcium (8.4-10.2) mg/dL Phosphorus (2.5-4.5) mg/dL Magnesium (1.6-2.3) mg/dL Total Bilirubin (0.2-1.3) mg/dL AST (14-36) U/L ALT (4-34) U/L Alkaline Phosphatase (38-126) U/L Troponin I (0.000-0.034) ng/mL Total Protein (6.3-8.2) g/dL Albumin (3.5-5.0) g/dL Amylase (30-110) U/L Lipase (23-300) U/L Urine Color Light Yellow Urine Appearance Cloudy H (Clear) Urine pH 5.5 (5.0-8.0) Ur Specific [place] 1.011 (1.001-1.035) Urine Protein 1+ H (Negative) Urine Glucose (UA) Negative (Negative) Urine Ketones Negative (Negative) Urine Blood Negative (Negative) Urine Nitrite Negative (Negative) Urine Bilirubin Negative (Negative) Urine Urobilinogen <2.0 (<2.0) mg/dL Ur Leukocyte Esterase Moderate H (Negative) Urine RBC 2 (0-5) /hpf Urine WBC 16 H (0-5) /hpf Ur Squamous Epith Cells 11 H (0-4) /hpf Urine Bacteria Occasional H (None) /hpf Urine Mucus Rare H (None) /hpf Ur Yeast w Hyphae Rare (None) /hpf Disposition Clinical Impression: Malnutrition, Chronic renal failure, Anorexia Disposition: ADMITTED IP TO THIS HOSP Condition: Fair Referrals: Ale Eli MD [Primary Care Provider] - 1-2 days Time of Disposition: 20:08 Decision to Admit Reason: Admit from EC Decision Time: 21:18
[2021-08-08 20:25] LABS: Magnesium 1.8 mg/dL (1.6-2.3); Phosphorus 3.4 mg/dL (2.5-4.5)
[2021-08-08] MEDS: SODIUM CHLORIDE 0.9% 1,000 ML IV SCH (20:26)
[2021-08-08 20:42] LABS: Appearance,Urine Cloudy (Clear); Bacteria,Urine Occasional /hpf; Bilirubin,Urine Negative (Negative); Blood,Urine Negative (Negative); Color,Urine Light Yellow; Glucose,Urine (UA) Negative (Negative); Hyphae Yeast, Urine Rare /hpf; Ketones,Urine Negative (Negative); Leukocyte Esterase,Urine Moderate (Negative); Mucus,Urine Rare /hpf; Nitrite,Urine Negative (Negative); PH, Urine 5.5 (5.0-8.0); Protein,Urine 1+ (Negative); RBC,Urine 2 /hpf (0-5); Specific Gravity,Urine 1.011 (1.001-1.035); Squamous Epithelial Cell,Urine 11 /hpf (0-4); Urobilinogen,Urine <2.0 mg/dL (<2.0); WBC,Urine 16 /hpf (0-5)
[2021-08-08] MEDS ORDERED: METHADONE 5 MG TAB PO STA (21:01)
[2021-08-08] MEDS ORDERED: HYDROmorphone 2 MG TAB PO STA (21:02)
[2021-08-08] MEDS ORDERED: NALOXONE 0.4 MG/ML 1 ML VIAL IV PRN (21:12)
[2021-08-08] MEDS ORDERED: ACETAMINOPHEN TAB 325 MG TAB PO PRN (21:12)
[2021-08-08] MEDS ORDERED: HYDROmorphone 2 MG TAB PO ONE (21:30)
[2021-08-08] MEDS ORDERED: METHADONE 5 MG TAB PO ONE (21:30)
[2021-08-09] MEDS: DEXTROSE 5%-0.45% NACL 1,000 ML IV SCH ×3 (07:26→16:53)
[2021-08-09 09:13] LABS: Basophils # (A) 0.07 X 10*3/uL (0.00-0.10); Basophils % (A) 0.7 %; Eosinophils # (A) 0.17 X 10*3/uL (0.04-0.35); Eosinophils % (A) 1.7 %; HCT 35.5 % (37.2-46.3); HGB 10.9 g/dL (12.0-15.0); Immature Grans, Automated 0.5 %; Lymphocytes # (A) 1.14 X 10*3/uL (0.90-5.00); Lymphocytes % (A) 11.3 %; MCH 27.5 pg (27.0-32.0); MCHC 30.7 g/dL (32.0-37.0); MCV 89.4 fL (80.0-97.0); Mean Platelet Volume 8.7 fL (9.5-12.2); Monocytes % (A) 8.9 %; NRBC Per 100 WBC 0 /100 WBCS (0.0-0.0); Neutrophils # (A) 7.73 X 10*3/uL (1.80-7.70); Neutrophils % (A) 76.9 %; Platelet Count 324 X 10*3/uL (140-440); RBC 3.97 X 10*6/uL (4.10-5.20); RDW 17.3 % (11.5-14.5); WBC 10.06 X 10*3/uL (4.50-10.00)
[2021-08-09 09:30] LABS: ALT 38 U/L (8-44); AST 22 U/L (13-35); African American GFR (CKD) 39.4 (60.0-200.0); Albumin/Globulin Ratio 1.48 (1.60-3.17); Alkaline Phosphatase 346 U/L (41-126); BUN/Creat Ratio 14.33 Ratio (12.00-20.00); Blood Urea Nitrogen 21.5 mg/dL (9.0-27.0); Calcium 9.1 mg/dL (8.7-10.3); Carbon Dioxide 19.7 mmol/L (20.0-27.5); Chloride 102 mmol/L (96-109); Globulin 2.7 g/dL (1.6-3.3); Glucose 85 mg/dL (70-110); Magnesium 1.9 mg/dL (1.5-2.4); Phosphorus 3.1 mg/dL (2.4-5.1); Potassium 4.2 mmol/L (3.5-5.5); Sodium 137 mmol/L (135-145); Total Bilirubin <0.15 mg/dL (0.30-1.20); Total Protein 6.7 g/dL (6.2-8.2)
[2021-08-09] MEDS ORDERED: METHADONE 5 MG TAB PO PRN (09:40)
[2021-08-09] MEDS ORDERED: ALBUTEROL NEBULIZED 2.5 MG/3 ML INHALATION PRN (09:51)
[2021-08-09] MEDS ORDERED: polyethylene glycoL 3350 17 GM POWD.PACK PO PRN (09:51)
[2021-08-09] MEDS ORDERED: FUROSEMIDE 20 MG TAB PO PRN (09:51)
[2021-08-09] MEDS: METHADONE 5 MG TAB PO SCH ×3 (10:14→22:02)
[2021-08-09] MEDS: SODIUM CHLORIDE 0.9% 1,000 ML IV SCH (10:17)
[2021-08-09] MEDS: BUTALB/APAP/CAFF 50-325-40MG TAB PO SCH ×3 (10:26→22:02)
[2021-08-09] MEDS: PANTOPRAZOLE 40 MG TABLET PO SCH (10:27)
[2021-08-09] MEDS: ASPIRIN 81 MG PO SCH (10:27)
[2021-08-09] MEDS: buPROPion XL 150 MG TAB.ER.24H PO SCH (10:27)
[2021-08-09] MEDS: HYDROmorphone 2 MG TAB PO PRN ×3 (12:31→23:54)
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
--- NOTE | 2021-08-09 15:21 | P.HPIM ---
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 Patient states that she has a legal guardian and was placed on hospice care at a facility and PICC line was taken out. Patient states that she does not want to be in the hospice and contacted primary care physician who recommended to go to ER. Patient does have very minimal oral intake and is cachectic. Complains of nausea and vomiting when she attempts to eat for the past 2 weeks. Patient's TPN was maintained through [facility] physician phone #[phone]. Patient is otherwise denied any complaints of chest pain or shortness of breath. No fever no chills. No dysuria or hematuria. No headache or dizziness or lightheadedness. Laboratory data showed WBC 11.3 hemoglobin 12.5 platelets 420 sodium 143 chloride 105 BUN 20 and creatinine 1.57 Albumin 4.5 AST 43 ALT 402 Urinalysis showed cloudy with 1+ protein moderate leukocytes trace WBC 16 and epithelial cells 11. Occasional bacteria. Blood pressure was elevated on admission 171/85 pulse 120 respiration 18 and pulse ox 95% on room air. Review of Systems Constitutional: Patient denies any fever or chills . No generalized weakness or weight loss. Abdomen: Patient denied nausea vomiting and diarrhea and abdominal pain. Cardiovascular: Patient denies any chest pain or short of breath no palpitations. Respiratory: patient denied any cough is from production. No shortness of breath Neurologic: Patient denied any numbness or tingling headache. Musculoskeletal: Patient denies any complaints of joint swelling or deformity. Skin: Negative Psychiatric: Negative Endocrine: No heat or cold intolerance. No recent weight gain. Genitourinary: No dysuria or hematuria. All other 14 point ROS negative except the above Past Medical History Past Medical History: Asthma, COPD, CVA/TIA, GERD/Reflux, Memory Impairment, Osteoarthritis (OA), Pneumonia, Renal Disease, Respiratory Disorder, Thyroid Disorder Additional Past Medical History / Comment(s): Aspiration, pneumonias, covid pneumonia, protein calorie malnutrition, pt was on TPN with PICC line managed thru [facility], chronic anemia, gastric ulcers/PUD, pancreatitis, bowel obstruction/surgery, constipation, CKD stage IV, TIA, chronic migraines, chronic back/cervical pain/spinal stenosis, hypothyroid, hyponatremia. History of Any Multi-Drug Resistant Organisms: Other MDRO Past Surgical History: Back Surgery, Bowel Resection, Hysterectomy, Joint Replacement Additional Past Surgical History / Comment(s): LOWER BACK SURGERY lamenectomy/discetomy then had a revison of that sx. / stomach removed 1989 then other half removed 1994 d/t ulcers-pouch created from small intestine, nasal sx d/t broken nose, colonoscopy/egd, PAIN CLINIC PROCEDURES, PORT A CATH INSERTION, LT ADEOLA Past Anesthesia/Blood Transfusion Reactions: No Reported Reaction Additional Past Anesthesia/Blood Transfusion Reaction / Comment(s): PT RECEIVED BLOOD TRANSFUSIONS AFTER STOMACH SURGERY Past Psychological History: Anxiety, Depression, Panic Disorder Additional Psychological History / Comment(s): Pt resides alone in an apartment She states she has a medical legal guardian, Rosario Oneal. She uses a walker at times to ambulate. She no longer drives, her health promotion manager Jonn Parnell drives her to appts but has been having health issues so her LG drives her if needed. She has ACT visits twice a week to check on her mental health. She recieves her meds in blister packs. Smoking Status: Never smoker Past Alcohol Use History: None Reported Past Drug Use History: None Reported - Past Family History Father Family Medical History: Cancer, Coronary Artery Disease (CAD) Additional Family Medical History / Comment(s): FATHER HAD BLADDER AND KIDNEY CANCER. FATHER HAD TB WHEN HE WAS A CHILD .FATHER AT AGE 87. Mother Family Medical History: Cancer Additional Family Medical History / Comment(s): MOTHER AT AGE 58 OF OVARIAN CANCER. Medications and Allergies Home Medications Medication Instructions Recorded Confirmed Type Ferrous Sulfate [Iron (65 MG 325 mg PO DAILY@1200 11/06/15 08/08/21 History Elemental)] calcitrioL [Calcitriol] 1 mcg PO MOWEFR 06/07/19 08/08/21 History busPIRone HCL [Buspar] 30 mg PO BID 04/14/20 08/08/21 History Butalb/APAP/Caff 50-325-40Mg 1 tab PO Q6H 06/30/20 08/08/21 History [Fioricet 50-325-40] buPROPion XL [Wellbutrin XL] 150 mg PO DAILY 11/04/20 08/08/21 History buPROPion XL [Wellbutrin XL] 300 mg PO DAILY 02/20/21 08/08/21 History Albuterol Sulfate [Albuterol 2 puff INHALATION RT-Q6H PRN 04/07/21 08/08/21 History Sulfate Hfa] Budesonide/Formoterol Fumarate 2 puff INHALATION RT-BID 04/07/21 08/08/21 History [Symbicort 160-4.5 Mcg Inhaler] Aspirin EC [Ecotrin Low Dose] 81 mg PO DAILY 05/12/21 08/08/21 History Levothyroxine Sodium [Synthroid] 100 mcg PO DAILY@0630 30 Days #30 06/19/21 08/08/21 Rx tab Furosemide [Lasix] 20 mg PO DAILY PRN 08/08/21 08/08/21 History HYDROmorphone [Dilaudid] 2 mg PO Q6H PRN 08/08/21 08/08/21 History Methadone [Dolophine] 5 mg PO Q6H 08/08/21 08/08/21 History Mirtazapine [Remeron] 45 mg PO HS 08/08/21 08/08/21 History Omeprazole 20 mg PO DAILY 08/08/21 08/08/21 History Ondansetron [Zofran ODT] 4 mg PO Q6H PRN 08/08/21 08/08/21 History Potassium Chloride ER [K-Dur 10] 30 meq PO DAILY@1200 08/08/21 08/08/21 History hydrOXYzine pamoate [Vistaril] 100 mg PO TID 08/08/21 08/08/21 History polyethylene glycoL 3350 [Miralax] 17 gm PO DAILY PRN 08/08/21 08/08/21 History Allergies Allergy/AdvReac Type Severity Reaction Status Date / Time mold Allergy Itching Verified 08/08/21 20:46 denosumab [From Prolia] AdvReac SEVERE Verified 08/08/21 20:46 CALCIUM LOSS morphine AdvReac Confusion Verified 08/08/21 20:46 DUST Allergy Itching Uncoded 08/08/21 20:46 Physical Exam Vitals: Vital Signs Temp Pulse Pulse Resp BP BP Pulse Ox 08/09/21 04:29 99.2 F 100 18 147/73 95 08/08/21 23:56 99.5 F 111 H 16 184/109 97 08/08/21 23:28 108 H 18 170/95 96 08/08/21 19:00 108 H 18 170/91 99 08/08/21 17:07 99.5 F 120 H 18 171/85 95 Intake and Output 08/08/21 08/09/21 08/09/21 22:59 06:59 14:59 Intake Total 150 Balance 150 Intake: Intake, IV Titration 150 Amount Sodium Chloride 0.9% 1, 150 000 ml @ 75 mls/hr IV . [id number] [facility] Rx#:[id number] Other: Weight 38.102 kg 38.102 kg PHYSICAL EXAMINATION: Patient is lying in the bed comfortably, no acute distress, awake alert and oriented.cachectic and malnourished.. HEENT: Normocephalic. Neck is supple. Pupils reactive. Nostrils clear. Oral cavity is moist. Neck reveals no JVD, carotid bruits, or thyromegaly. CHEST EXAMINATION: Trachea is central. Symmetrical expansion. Lung calixto clear to auscultation and percussion. CARDIAC: Normal S1, S2 with no gallops. No murmurs ABDOMEN: Soft. Bowel sounds normal. No organomegaly. No abdominal bruits. Extremities: reveal no edema. No clubbing or cyanosis Neurologically awake, alert, oriented x2-3 with well-coordinated movements. No focal deficits noted Skin: No rash or skin lesions. Psychiatric: Coperative. Nonsuicidal Musculoskeletal: No joint swelling or deformity. Normal range of motion. Results CBC & Chem 7: 08/09/21 06:14 08/09/21 06:14 Labs: Abnormal Lab Results - Last 24 Hours (Table) 08/08/21 08/08/21 08/08/21 Range/Units 06:12 17:50 17:50 WBC 11.3 H (3.8-10.6) k/uL RBC (4.10-5.20) X 10*6/uL Hgb (12.0-15.0) g/dL Hct (37.2-46.3) % MCHC (32.0-37.0) g/dL RDW 18.0 H (11.5-15.5) % MPV (9.5-12.2) fL Immature Gran # (0.00-0.04) X 10*3/uL Neutrophils # 9.7 H (1.3-7.7) k/uL Lymphocytes # 0.8 L (1.0-4.8) k/uL Carbon Dioxide (20.0-27.5) mmol/L BUN 20 H (7-17) mg/dL Creatinine 1.57 H (0.52-1.04) mg/dL Est GFR (CKD-EPI)AfAm (60.0-200.0) Est GFR (CKD-EPI)NonAf (60.0-200.0) Glucose 102 H (74-99) mg/dL Total Bilirubin (0.30-1.20) mg/dL ALT 43 H (4-34) U/L Alkaline Phosphatase 402 H (38-126) U/L Total Protein 8.5 H (6.3-8.2) g/dL Albumin/Globulin Ratio (1.60-3.17) g/dL Amylase 124 H (30-110) U/L Urine Appearance (Clear) Urine Protein (Negative) Ur Leukocyte Esterase (Negative) Urine WBC (0-5) /hpf Ur Squamous Epith Cells (0-4) /hpf Urine Bacteria (None) /hpf Urine Mucus (None) /hpf 08/08/21 08/09/21 08/09/21 Range/Units 20:10 06:14 06:14 WBC 10.06 H (3.8-10.6) k/uL RBC 3.97 L (4.10-5.20) X 10*6/uL Hgb 10.9 L (12.0-15.0) g/dL Hct 35.5 L (37.2-46.3) % MCHC 30.7 L (32.0-37.0) g/dL RDW 17.3 H (11.5-15.5) % MPV 8.7 L (9.5-12.2) fL Immature Gran # 0.05 H (0.00-0.04) X 10*3/uL Neutrophils # 7.73 H (1.3-7.7) k/uL Lymphocytes # (1.0-4.8) k/uL Carbon Dioxide 19.7 L (20.0-27.5) mmol/L BUN (7-17) mg/dL Creatinine (0.52-1.04) mg/dL Est GFR (CKD-EPI)AfAm 39.4 L (60.0-200.0) Est GFR (CKD-EPI)NonAf 34.0 L (60.0-200.0) Glucose (74-99) mg/dL Total Bilirubin <0.15 L (0.30-1.20) mg/dL ALT (4-34) U/L Alkaline Phosphatase 346 H (38-126) U/L Total Protein (6.3-8.2) g/dL Albumin/Globulin Ratio 1.48 L (1.60-3.17) g/dL Amylase (30-110) U/L Urine Appearance Cloudy H (Clear) Urine Protein 1+ H (Negative) Ur Leukocyte Esterase Moderate H (Negative) Urine WBC 16 H (0-5) /hpf Ur Squamous Epith Cells 11 H (0-4) /hpf Urine Bacteria Occasional H (None) /hpf Urine Mucus Rare H (None) /hpf Microbiology - Last 24 Hours (Table) 08/08/21 20:10 Urine Culture - Preliminary Urine,Voided Thrombosis Risk Factor Assmnt - DVT/VTE Prophylaxis DVT/VTE Prophylaxis: Pharmacologic Prophylaxis ordered - Choose All That Apply Any of the Below Risk Factors Present?: Yes Other Risk Factors: Yes Each Risk Factor Represents 2 Points: Age 61-74 years Other congenital or acquired thrombophilia - If yes, enter type in comment: No Thrombosis Risk Factor Assessment Total Risk Factor Score: 2 Thrombosis Risk Factor Assessment Level: Low Risk Assessment and Plan Assessment: Malnutrition and failure to thrive. Patient is off TPN for 2 weeks now. Wants PICC line to be placed again. Acute on chronic kidney disease stage III History of gastric ulcer status postgastrectomy Recurrent aspiration pneumonia Recurrent PICC line infections and sepsis History of CVA GERD Osteoarthritis Hypothyroidism Cervical spinal stenosis and chronic back pain Chronic migraine headache Chronic pain syndrome on methadone and hydromorphone DVT prophylaxis with heparin subcu GI prophylaxis Plan: Patient will be continued on IV hydration with D5 half-normal saline and encourage oral intake slowly with aspiration precautions. Patient will be started on pain medications and home medications. We will contact her physician at [facility] to initiate on TPN if appropriate. Patient does have previous PICC line infections and sepsis. Continue with GI and DVT prophylaxis and follow-up renal function. Patient's sister is willing to take guardianship and patient would like to talk to her. Phone #[phone]. Prognosis is guarded at this time. Time with Patient: Greater than 30
[2021-08-09 16:30] VITALS: BMI 15.3
[2021-08-09] MEDS: SYMBICORT 160-4.5 MCG INHALER INHALATION SCH (20:12)
[2021-08-09] MEDS: ONDANSETRON 4 MG/2 ML VIAL IVP PRN (22:02)
[2021-08-09] MEDS: MIRTAZAPINE 45 MG TABLET PO SCH (22:02)
[2021-08-09] MEDS: HEPARIN SODIUM,PORCINE/PF 5,000 UNIT/0.5 ML SYRINGE SQ SCH (22:03)
[2021-08-09] MEDS: busPIRone HCl 10 MG TAB PO SCH (22:03)
[2021-08-09] MEDS ORDERED: MVI, ADULT NO.4 WITH VIT K 10 ML, TRACE (CONC-1ML/DOSE) 1 ML in AMINO ACID 5%-D20W+LYTE... IV SCH ×3 (23:00)
[2021-08-10] MEDS: BUTALB/APAP/CAFF 50-325-40MG TAB PO SCH ×4 (04:07→21:16)
[2021-08-10] MEDS: METHADONE 5 MG TAB PO SCH ×4 (04:07→21:16)
[2021-08-10] MEDS: LEVOTHYROXINE 100 MCG TAB PO SCH (04:08)
[2021-08-10] MEDS: ONDANSETRON 4 MG/2 ML VIAL IVP PRN ×3 (05:58→23:58)
[2021-08-10] MEDS: HYDROmorphone 2 MG TAB PO PRN ×3 (05:59→23:58)
[2021-08-10] MEDS: SYMBICORT 160-4.5 MCG INHALER INHALATION SCH ×2 (07:17→18:48)
[2021-08-10] MEDS: busPIRone HCl 10 MG TAB PO SCH ×2 (08:13→21:15)
[2021-08-10] MEDS: ASPIRIN 81 MG PO SCH (08:14)
[2021-08-10] MEDS: buPROPion XL 150 MG TAB.ER.24H PO SCH (08:14)
[2021-08-10] MEDS: PANTOPRAZOLE 40 MG TABLET PO SCH (08:14)
[2021-08-10] MEDS: HEPARIN SODIUM,PORCINE/PF 5,000 UNIT/0.5 ML SYRINGE SQ SCH ×2 (08:14→21:16)
[2021-08-10 08:18] LABS: Ionized Calcium 4.9 mg/dL (4.5-5.3)
[2021-08-10 08:47] LABS: African American GFR (CKD) 44 (>60 ml/min/1.73 sqM); Anion Gap 9 mmol/L; Blood Urea Nitrogen 28 mg/dL (7-17); Calcium 8.6 mg/dL (8.4-10.2); Carbon Dioxide 23 mmol/L (22-30); Chloride 103 mmol/L (98-107); Glucose 109 mg/dL (74-99); Magnesium 1.8 mg/dL (1.6-2.3); Non-African American GFR(CKD) 38 (>60 ml/min/1.73 sqM); Phosphorus 2.9 mg/dL (2.5-4.5); Potassium 4.1 mmol/L (3.5-5.1); Sodium 135 mmol/L (137-145)
[2021-08-10] MEDS ORDERED: FAT EMULSION 20% 250 ML in EMPTY BAG 1 BAG IV SCH (09:00)
[2021-08-10 11:40] LABS: Basophils # (A) 0.06 X 10*3/uL (0.00-0.10); Basophils % (A) 0.6 %; Eosinophils # (A) 0.45 X 10*3/uL (0.04-0.35); Eosinophils % (A) 4.6 %; HCT 35.5 % (37.2-46.3); HGB 11.2 g/dL (12.0-15.0); Immature Grans, Automated 0.4 %; Lymphocytes # (A) 1.26 X 10*3/uL (0.90-5.00); MCH 27.9 pg (27.0-32.0); MCHC 31.5 g/dL (32.0-37.0); MCV 88.3 fL (80.0-97.0); Mean Platelet Volume 8.5 fL (9.5-12.2); Monocytes # (A) 1.06 X 10*3/uL (0.20-1.00); Monocytes % (A) 10.9 %; NRBC Per 100 WBC 0 /100 WBCS (0.0-0.0); Neutrophils # (A) 6.82 X 10*3/uL (1.80-7.70); Neutrophils % (A) 70.5 %; Platelet Count 282 X 10*3/uL (140-440); RBC 4.02 X 10*6/uL (4.10-5.20); WBC 9.69 X 10*3/uL (4.50-10.00)
[2021-08-10] MEDS: DEXTROSE 5%-0.45% NACL 1,000 ML IV SCH ×2 (14:18→21:26)
[2021-08-10] MEDS: MIRTAZAPINE 45 MG TABLET PO SCH (21:16)
[2021-08-10] MEDS ORDERED: 1: MVI, ADULT NO.4 WITH VIT K 10 ML, TRACE (CONC-1ML/DOSE) 1 ML in AMINO ACID 5%-D20W+LY IV SCH ×3 (23:00)
[2021-08-11 04:00] LABS: Potassium 4.2 mmol/L (3.5-5.1)
[2021-08-11 04:02] LABS: African American GFR (CKD) 48 (>60 ml/min/1.73 sqM); Anion Gap 4 mmol/L; Blood Urea Nitrogen 24 mg/dL (7-17); Calcium 8.3 mg/dL (8.4-10.2); Carbon Dioxide 24 mmol/L (22-30); Chloride 104 mmol/L (98-107); Glucose 113 mg/dL (74-99); Magnesium 1.8 mg/dL (1.6-2.3); Non-African American GFR(CKD) 42 (>60 ml/min/1.73 sqM); Phosphorus 2.4 mg/dL (2.5-4.5); Sodium 132 mmol/L (137-145)
[2021-08-11] MEDS: LEVOTHYROXINE 100 MCG TAB PO SCH (04:05)
[2021-08-11] MEDS: METHADONE 5 MG TAB PO SCH ×4 (04:05→19:51)
[2021-08-11] MEDS: BUTALB/APAP/CAFF 50-325-40MG TAB PO SCH ×4 (04:05→19:50)
[2021-08-11] MEDS: HYDROmorphone 2 MG TAB PO PRN ×4 (06:05→23:53)
[2021-08-11] MEDS: SYMBICORT 160-4.5 MCG INHALER INHALATION SCH ×2 (07:13→18:43)
[2021-08-11] MEDS: HEPARIN SODIUM,PORCINE/PF 5,000 UNIT/0.5 ML SYRINGE SQ SCH ×2 (07:36→19:50)
[2021-08-11] MEDS: buPROPion XL 150 MG TAB.ER.24H PO SCH (07:37)
[2021-08-11] MEDS: busPIRone HCl 10 MG TAB PO SCH ×2 (07:37→19:50)
[2021-08-11] MEDS: ASPIRIN 81 MG PO SCH (07:37)
[2021-08-11] MEDS: PANTOPRAZOLE 40 MG TABLET PO SCH (07:37)
[2021-08-11] MEDS: ONDANSETRON 4 MG/2 ML VIAL IVP PRN (11:52)
[2021-08-11] MEDS: DEXTROSE 5%-0.45% NACL 1,000 ML IV SCH ×2 (16:03→22:54)
[2021-08-11] MEDS: MIRTAZAPINE 45 MG TABLET PO SCH (19:50)
--- NOTE | 2021-08-12 01:05 | P.PN ---
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 until 2 weeks ago, recommend PICC line infections, sepsis, COPD/asthma, history of CVA, osteoarthritis, CKD stage IV, chronic back pain, cervical pain/spinal stenosis, hypothyroidism, memory impairment, anxiety/depression panic disorder and other multiple medical problems presented by her primary care physician for PICC line placement and TPN. Patient states that she has a legal guardian and was placed on hospice care at a facility and PICC line was taken out. Patient states that she does not want to be in the hospice and contacted primary care physician who recommended to go to ER. Patient does have very minimal oral intake and is cachectic. Complains of nausea and vomiting when she attempts to eat for the past 2 weeks. Patient's TPN was maintained through [facility] physician phone #[phone]. Patient is otherwise denied any complaints of chest pain or shortness of breath. No fever no chills. No dysuria or hematuria. No headache or dizziness or lightheadedness. Laboratory data showed WBC 11.3 hemoglobin 12.5 platelets 420 sodium 143 chloride 105 BUN 20 and creatinine 1.57 Albumin 4.5 AST 43 ALT 402 Urinalysis showed cloudy with 1+ protein moderate leukocytes trace WBC 16 and epithelial cells 11. Occasional bacteria. Blood pressure was elevated on admission 171/85 pulse 120 respiration 18 and pulse ox 95% on room air. 08/10/2021 Patient is resting in bed awake alert oriented. Still complains of pain and requesting pain medications. Patient is tolerating minimal oral diet. No complaints of fever or chills. Laboratory data showed WBC 9.6 hemoglobin 11.1 platelets 282 sodium 135 potassium 4.1 chloride 103 BUN 28 and creatinine 1.37. Patient is being current IV hydration. Awaiting TPN to be started. Current medications reviewed. Objective - Vital Signs Vital signs: Vital Signs Temp 98.2 F 08/10/21 19:15 Pulse 97 08/10/21 19:15 Resp 20 08/10/21 19:59 BP 122/73 08/10/21 19:15 Pulse Ox 96 08/10/21 19:15 Intake & Output 08/10/21 08/10/21 08/11/21 06:59 18:59 06:59 Intake Total 1120 220 Balance 1120 220 Intake: Intake, IV Titration 900 Amount Dextrose 5%-0.45% NaCl 1, 900 000 ml @ 75 mls/hr IV . [id number] [facility] Rx#:[id number] Oral 220 220 Other: Voiding Method Toilet Toilet Toilet # Voids 1 1 # Bowel Movements 0 - Exam PHYSICAL EXAMINATION: Patient is lying in the bed comfortably, no acute distress, awake alert and oriented.cachectic and malnourished.. HEENT: Normocephalic. Neck is supple. Pupils reactive. Nostrils clear. Oral cavity is moist. Neck reveals no JVD, carotid bruits, or thyromegaly. CHEST EXAMINATION: Trachea is central. Symmetrical expansion. Lung calixto clear to auscultation and percussion. CARDIAC: Normal S1, S2 with no gallops. No murmurs ABDOMEN: Soft. Bowel sounds normal. No organomegaly. No abdominal bruits. Extremities: reveal no edema. No clubbing or cyanosis Neurologically awake, alert, oriented x2-3 with well-coordinated movements. No focal deficits noted Skin: No rash or skin lesions. Psychiatric: Coperative. Nonsuicidal Musculoskeletal: No joint swelling or deformity. Normal range of motion. - Labs CBC & Chem 7: 08/10/21 07:40 08/11/21 03:31 Labs: Abnormal Lab Results - Last 24 Hours (Table) 08/10/21 08/10/21 Range/Units 07:40 07:40 RBC 4.02 L (4.10-5.20) X 10*6/uL Hgb 11.2 L (12.0-15.0) g/dL Hct 35.5 L (37.2-46.3) % MCHC 31.5 L (32.0-37.0) g/dL RDW 17.0 H (11.5-14.5) % MPV 8.5 L (9.5-12.2) fL Monocytes # 1.06 H (0.20-1.00) X 10*3/uL Eosinophils # 0.45 H (0.04-0.35) X 10*3/uL Sodium 135 L (137-145) mmol/L BUN 28 H (7-17) mg/dL Creatinine 1.37 H (0.52-1.04) mg/dL Glucose 109 H (74-99) mg/dL Triglycerides 168.00 H (0.00-149.00) mg/dL Microbiology - Last 24 Hours (Table) 08/08/21 20:10 Urine Culture - Preliminary Urine,Voided Group D Enterococcus Assessment and Plan Assessment: Malnutrition and failure to thrive. Patient is off TPN for 2 weeks now. Wants PICC line to be placed again. Acute on chronic kidney disease stage III History of gastric ulcer status postgastrectomy Recurrent aspiration pneumonia Recurrent PICC line infections and sepsis History of CVA GERD Osteoarthritis Hypothyroidism Cervical spinal stenosis and chronic back pain Chronic migraine headache Chronic pain syndrome on methadone and hydromorphone DVT prophylaxis with heparin subcu GI prophylaxis Plan: Patient will be continued on IV hydration with D5 half-normal saline and encourage oral intake slowly with aspiration precautions. Patient will be started on pain medications and home medications. We will contact her physician at [facility] to initiate on TPN if appropriate. Patient does have previous PICC line infections and sepsis. Continue with GI and DVT prophylaxis and follow-up renal function. Patient's sister is willing to take guardianship and patient would like to talk to her. Phone #[phone]. Prognosis is guarded at this time. Time with Patient: Greater than 30
--- NOTE | 2021-08-12 01:07 | P.PN ---
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 Patient states that she has a legal guardian and was placed on hospice care at a facility and PICC line was taken out. Patient states that she does not want to be in the hospice and contacted primary care physician who recommended to go to ER. Patient does have very minimal oral intake and is cachectic. Complains of nausea and vomiting when she attempts to eat for the past 2 weeks. Patient's TPN was maintained through [facility] physician phone #[phone]. Patient is otherwise denied any complaints of chest pain or shortness of breath. No fever no chills. No dysuria or hematuria. No headache or dizziness or lightheadedness. Laboratory data showed WBC 11.3 hemoglobin 12.5 platelets 420 sodium 143 chloride 105 BUN 20 and creatinine 1.57 Albumin 4.5 AST 43 ALT 402 Urinalysis showed cloudy with 1+ protein moderate leukocytes trace WBC 16 and epithelial cells 11. Occasional bacteria. Blood pressure was elevated on admission 171/85 pulse 120 respiration 18 and pulse ox 95% on room air. 08/10/2021 Patient is resting in bed awake alert oriented. Still complains of pain and requesting pain medications. Patient is tolerating minimal oral diet. No complaints of fever or chills. Laboratory data showed WBC 9.6 hemoglobin 11.1 platelets 282 sodium 135 potassium 4.1 chloride 103 BUN 28 and creatinine 1.37. Patient is being current IV hydration. Awaiting TPN to be started. 08/11/2021 Patient is still complaining of pain. Started back on Dilaudid and methadone. Patient will be continued IV hydration and encourage oral intake. Follow-up sodium level tomorrow. Possible initiation of TPN with coordination of her physician at [facility]. Patient has been afebrile. No episodes of vomiting. No diarrhea. Tolerating minimal oral intake. Current medications reviewed. Objective - Vital Signs Vital signs: Vital Signs Temp 98.3 F 08/11/21 13:15 Pulse 92 08/11/21 13:15 Resp 18 08/11/21 13:15 BP 140/85 08/11/21 13:15 Pulse Ox 96 08/11/21 13:15 Intake & Output 08/10/21 08/11/21 08/11/21 18:59 06:59 18:59 Intake Total 221 Balance 221 Intake: Oral 221 Other: Voiding Method Toilet Toilet Toilet # Voids 1 1 1 # Bowel Movements 0 - Exam PHYSICAL EXAMINATION: Patient is lying in the bed comfortably, no acute distress, awake alert and oriented.cachectic and malnourished.. HEENT: Normocephalic. Neck is supple. Pupils reactive. Nostrils clear. Oral cavity is moist. Neck reveals no JVD, carotid bruits, or thyromegaly. CHEST EXAMINATION: Trachea is central. Symmetrical expansion. Lung calixto clear to auscultation and percussion. CARDIAC: Normal S1, S2 with no gallops. No murmurs ABDOMEN: Soft. Bowel sounds normal. No organomegaly. No abdominal bruits. Extremities: reveal no edema. No clubbing or cyanosis Neurologically awake, alert, oriented x2-3 with well-coordinated movements. No focal deficits noted Skin: No rash or skin lesions. Psychiatric: Coperative. Nonsuicidal Musculoskeletal: No joint swelling or deformity. Normal range of motion. - Labs CBC & Chem 7: 08/10/21 07:40 08/11/21 03:31 Labs: Abnormal Lab Results - Last 24 Hours (Table) 08/10/21 08/11/21 Range/Units 07:40 03:31 Sodium 132 L (137-145) mmol/L BUN 24 H (7-17) mg/dL Creatinine 1.28 H (0.52-1.04) mg/dL Glucose 113 H (74-99) mg/dL Calcium 8.3 L (8.4-10.2) mg/dL Phosphorus 2.4 L (2.5-4.5) mg/dL Triglycerides 168.00 H (0.00-149.00) mg/dL Microbiology - Last 24 Hours (Table) 08/08/21 20:10 Urine Culture - Preliminary Urine,Voided Group D Enterococcus Assessment and Plan Assessment: Malnutrition and failure to thrive. Patient is off TPN for 2 weeks now. Wants PICC line to be placed again. Acute on chronic kidney disease stage III History of gastric ulcer status postgastrectomy Recurrent aspiration pneumonia Recurrent PICC line infections and sepsis History of CVA GERD Osteoarthritis Hypothyroidism Cervical spinal stenosis and chronic back pain Chronic migraine headache Chronic pain syndrome on methadone and hydromorphone DVT prophylaxis with heparin subcu GI prophylaxis Plan: Patient will be continued on IV hydration with D5 half-normal saline and encourage oral intake slowly with aspiration precautions. Patient will be started on pain medications and home medications. We will contact her physician at [facility] to initiate on TPN if appropriate. Patient does have previous PICC line infections and sepsis. Continue with GI and DVT prophylaxis and follow-up renal function. Patient's sister is willing to take guardianship and patient would like to talk to her. Phone #[phone]. Prognosis is guarded at this time. Time with Patient: Greater than 30
[2021-08-12] MEDS: BUTALB/APAP/CAFF 50-325-40MG TAB PO SCH ×4 (04:27→20:00)
[2021-08-12] MEDS: LEVOTHYROXINE 100 MCG TAB PO SCH (04:28)
[2021-08-12] MEDS: METHADONE 5 MG TAB PO SCH ×5 (04:28→20:01)
[2021-08-12] MEDS ORDERED: HYDROmorphone 2 MG TAB ONE (06:10)
[2021-08-12 08:43] LABS: African American GFR (CKD) 52 (>60 ml/min/1.73 sqM); Anion Gap 7 mmol/L; Blood Urea Nitrogen 21 mg/dL (7-17); Calcium 8.3 mg/dL (8.4-10.2); Carbon Dioxide 22 mmol/L (22-30); Chloride 105 mmol/L (98-107); Glucose 100 mg/dL (74-99); Magnesium 1.8 mg/dL (1.6-2.3); Non-African American GFR(CKD) 45 (>60 ml/min/1.73 sqM); Phosphorus 2.5 mg/dL (2.5-4.5); Potassium 4.3 mmol/L (3.5-5.1); Sodium 134 mmol/L (137-145)
[2021-08-12 09:03] LABS: Anisocytosis Slight; Basophils # (A) 0.1 k/uL (0-0.2); Basophils % (A) 1 %; Eosinophils # (A) 0.4 k/uL (0-0.7); Eosinophils % (A) 3 %; HCT 37.8 % (34.0-46.0); HGB 11.6 gm/dL (11.4-16.0); Hypochromasia Moderate; Lymphocytes # (A) 1.4 k/uL (1.0-4.8); Lymphocytes % (A) 13 %; MCH 28.6 pg (25.0-35.0); MCHC 30.7 g/dL (31.0-37.0); Mean Platelet Volume 7.4; Monocytes # (A) 0.6 k/uL (0-1.0); Monocytes % (A) 6 %; Neutrophils # (A) 8.4 k/uL (1.3-7.7); Neutrophils % (A) 76 %; Platelet Count 361 k/uL (150-450); RBC 4.07 m/uL (3.80-5.40); WBC 10.9 k/uL (3.8-10.6)
--- NOTE | 2021-08-12 12:18 | P.PN ---
Subjective Progress Note Date: 08/12/21 Principal diagnosis: Failure to thrive The patient is a 76 year old female with an extensive past medical history including, gastric ulcers s/p gastrectomy, recurrent aspiration pneumonia, malnutrition, recurrent PICC line infectins, sepsis, COPD, CVA, GERD, OA, CRF, hypothyroidism, and spinal stenosis. She presented to the on 08/09/21 stating that she was on parenteral nutrition up to 2 weeks ago. She states her guardian placed her on Hospice and took out her PICC line. The patient states she does not want to be in hospice. Patient was sent here by her primary care physician for PICC placement and TPN. Patient has had weight loss. Patient states she is able to eat tiny amount of food, but has unable to tolerate it. She c/o nausea and vomiting when she attempts to eat for the past 2 weeks. 08/09 - Education provided to patient regarding her multiple health conditions. The patient states she wants to live and never wanted to be put on Hospice. She stated her gaurdian put her on hospice without her knowledge or consent. Her goal is prolonged survival despite many hospital readmissions. Information regarding palliative care given to patient. Objective - Vital Signs Vital signs: Vital Signs Temp 98.6 F 08/12/21 04:27 Pulse 93 08/12/21 04:27 Resp 16 08/12/21 04:27 BP 152/79 08/12/21 04:27 Pulse Ox 96 08/12/21 04:27 Intake & Output 08/11/21 08/12/21 08/12/21 18:59 06:59 18:59 Intake Total 900 Balance 900 Intake: Intake, IV Titration 900 Amount Dextrose 5%-0.45% NaCl 1, 900 000 ml @ 75 mls/hr IV . [id number] [facility] Rx#:[id number] Other: Voiding Method Toilet Toilet # Voids 2 - Exam General: Patient awake alert and oriented x 3. No acute distress. HEENT: Head is atraumatic, normocephalic Neck is supple. Sclerae are clear. Pupils equal, round and reactive to light bilaterally. CV: Heart regular in rate and rhythm positive S1 and S2. No S3. No S4. No clicks, rubs or murmurs. No JVD. Peripheral pulses equal. 2/4 Lungs: CTA No wheezes rales or rhonchi. Respirations even and nonlabored. No intercostal retractions.on RA. Abdomen/GI: Soft. Bowel sounds present in all 4 quadrants. Bowel sounds normoactive. No abdominal tenderness. Musculoskeletal/ Extremities: No tenderness on muscular exam. No ecchymosis. Vascular: Radial pulses equal. 2/4. Skin: No rash. Neurologic: Awake, alert and oriented times 3. Psychiatric: Anxious and emotional - Labs CBC & Chem 7: 08/12/21 06:30 08/12/21 06:23 Labs: Abnormal Lab Results - Last 24 Hours (Table) 08/12/21 08/12/21 Range/Units 06:23 06:30 WBC 10.9 H (3.8-10.6) k/uL MCHC 30.7 L (31.0-37.0) g/dL RDW 17.0 H (11.5-15.5) % Neutrophils # 8.4 H (1.3-7.7) k/uL Sodium 134 L (137-145) mmol/L BUN 21 H (7-17) mg/dL Creatinine 1.20 H (0.52-1.04) mg/dL Glucose 100 H (74-99) mg/dL Calcium 8.3 L (8.4-10.2) mg/dL Microbiology - Last 24 Hours (Table) 08/08/21 20:10 Urine Culture - Final Urine,Voided Enterococcus faecalis Assessment and Plan Plan: Symptoms * Pain - Patient has chronic back and neck pain and migraines. She takes Methadone, Dilaudid, and Fioricet at home. She does have those available here at the hospital with the addition of Tylenol. She stated her pain is well controlled with this regimen. There is also PRN Narcan orderd. * Energy level/Fatigue - Lately she has been feeling weak and fatigued. She believes this is due to malnutrition and will improve with TPN * SOB - denies, Continue Symbicort and Albuterol neb * Insomnia - Takes Remeron at home and has been continued here, sleeping well * N/V - Whenever the patient tried to eat she is nauseated and occasionally vomits. She is currently on a pureed diet d/t dysphagia. Continue Zofran PRN * Anxiety/Depression - Home Wellbutrin and Buspar continued. Pt denies any depression or anxiety at this time. * Confusion/Agitation - none * Appetite/dysphagia/weight loss - Patient reports a good appetite, but states she is unable to eat. She has a history of dysphagia and recurrent aspiration pneumonia. Encourage PO intake * Constipation - Chronic constipation due to narcotic use - Home Miralax ordered. Patient states LBM 2 days ago. * Incontinence - none * Itch - none * Hallucinations - none The patient is anxious today. She states she is confused on plan of care. She is upset because she has not gotten a PICC line placed or started TPN It was explained that Dr. Laguerre spoke with the shoe caser and expressed that TPN was not being given in a safe manner. She also was concerned that the patient was not following up despite trying to contact the patient multiple times so she will not sign for TPN again. It was explained that the decision to re-start TPN will be up to her attending. She is also very anxious about her guardian. She states that her guardian is the reason she is not getting TPN. She said "my guardian keeps telling the doctor that I don't need TPN, but that's not the truth...she's lying." Patient's sister is willing to take guardianship. Code Status - the patient wishes to remain a DNR [facility]- Palliative Care [employer] [phone] Email: [email or web address] Time with Patient: Greater than 30
[2021-08-12] MEDS: HEPARIN SODIUM,PORCINE/PF 5,000 UNIT/0.5 ML SYRINGE SQ SCH ×2 (12:52→20:00)
[2021-08-12] MEDS: busPIRone HCl 10 MG TAB PO SCH ×2 (12:52→20:00)
[2021-08-12] MEDS: ASPIRIN 81 MG PO SCH (12:52)
[2021-08-12] MEDS: PANTOPRAZOLE 40 MG TABLET PO SCH (12:52)
[2021-08-12] MEDS: buPROPion XL 150 MG TAB.ER.24H PO SCH (12:52)
[2021-08-12] MEDS ORDERED: SODIUM CHLORIDE 0.9% 1,000 ML IV SCH (14:45)
[2021-08-12] MEDS: SYMBICORT 160-4.5 MCG INHALER INHALATION SCH ×2 (15:13→20:09)
--- NOTE | 2021-08-12 15:19 | P.NPCON ---
History of Present Illness - Reason for Consult chronic renal failure - History of Present Illness Reason for consultation: Chronic kidney disease and PICC line clearance History of present illness: Patient is a 76-year-old female seen in renal consultation for chronic kidney disease. Patient has chronic kidney disease stage IIIb with baseline creatinine in the range of 1.3-1.6. Patient presented to the hospital with generalized weakness and failure to thrive. Patient states that due to her gastric surgery and risk for aspiration, she was receiving TPN on a regular basis. However she was placed on hospice and subsequently her PICC line was removed. Patient states that she never wanted to be on hospice and wants to continue to live. Therefore nephrology was consulted for PICC line clearance so TPN can be resumed. Patient's GFR is at baseline. She is tolerating oral intake. Denies vomiting or diarrhea. No chest pain or shortness of breath. No hematuria or dysuria. Blood pressure is stable. Vital signs are stable. General: No acute distress. HEENT: Head exam is unremarkable. LUNGS: Breath sounds decreased. HEART: Rate and Rhythm are regular. ABDOMEN: Soft, no distention. EXTREMITITES: No edema. Past Medical History Past Medical History: Asthma, COPD, CVA/TIA, GERD/Reflux, Memory Impairment, Osteoarthritis (OA), Pneumonia, Renal Disease, Respiratory Disorder, Thyroid Disorder Additional Past Medical History / Comment(s): Aspiration, pneumonias, covid pneumonia, protein calorie malnutrition, pt was on TPN with PICC line managed thru [facility], chronic anemia, gastric ulcers/PUD, pancreatitis, bowel obstruction/surgery, constipation, CKD stage IV, TIA, chronic migraines, chronic back/cervical pain/spinal stenosis, hypothyroid, hyponatremia. History of Any Multi-Drug Resistant Organisms: Other MDRO Past Surgical History: Back Surgery, Bowel Resection, Hysterectomy, Joint Replacement Additional Past Surgical History / Comment(s): LOWER BACK SURGERY lamenectomy/discetomy then had a revison of that sx. 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, nasal sx d/t broken nose, colonoscopy/egd, PAIN CLINIC PROCEDURES, PORT A CATH INSERTION, LT ADEOLA Past Anesthesia/Blood Transfusion Reactions: No Reported Reaction Additional Past Anesthesia/Blood Transfusion Reaction / Comment(s): PT RECEIVED BLOOD TRANSFUSIONS AFTER STOMACH SURGERY Past Psychological History: Anxiety, Depression, Panic Disorder Additional Psychological History / Comment(s): Pt resides alone in an apartment She states she has a medical legal guardian, Rosario Oneal. She uses a walker at times to ambulate. She no longer drives, her fan installer Jonn Parnell drives her to appts but has been having health issues so her [employer] drives her if needed. She has ACT visits twice a week to check on her mental health. She recieves her meds in blister packs. Smoking Status: Never smoker Past Alcohol Use History: None Reported Past Drug Use History: None Reported - Past Family History Father Family Medical History: Cancer, Coronary Artery Disease (CAD) Additional Family Medical History / Comment(s): FATHER HAD BLADDER AND KIDNEY CANCER. FATHER HAD TB WHEN HE WAS A CHILD .FATHER AT AGE 87. Mother Family Medical History: Cancer Additional Family Medical History / Comment(s): MOTHER AT AGE 58 OF OVARIAN CANCER. Medications and Allergies Home Medications Medication Instructions Recorded Confirmed Type Ferrous Sulfate [Iron (65 MG 325 mg PO DAILY@1200 11/06/15 08/08/21 History Elemental)] calcitrioL [Calcitriol] 1 mcg PO MOWEFR 06/07/19 08/08/21 History busPIRone HCL [Buspar] 30 mg PO BID 04/14/20 08/08/21 History Butalb/APAP/Caff 50-325-40Mg 1 tab PO Q6H 06/30/20 08/08/21 History [Fioricet 50-325-40] buPROPion XL [Wellbutrin XL] 150 mg PO DAILY 11/04/20 08/08/21 History buPROPion XL [Wellbutrin XL] 300 mg PO DAILY 02/20/21 08/08/21 History Albuterol Sulfate [Albuterol 2 puff INHALATION RT-Q6H PRN 04/07/21 08/08/21 History Sulfate Hfa] Budesonide/Formoterol Fumarate 2 puff INHALATION RT-BID 04/07/21 08/08/21 History [Symbicort 160-4.5 Mcg Inhaler] Aspirin EC [Ecotrin Low Dose] 81 mg PO DAILY 05/12/21 08/08/21 History Levothyroxine Sodium [Synthroid] 100 mcg PO DAILY@0630 30 Days #30 06/19/21 08/08/21 Rx tab Furosemide [Lasix] 20 mg PO DAILY PRN 08/08/21 08/08/21 History HYDROmorphone [Dilaudid] 2 mg PO Q6H PRN 08/08/21 08/08/21 History Methadone [Dolophine] 5 mg PO Q6H 08/08/21 08/08/21 History Mirtazapine [Remeron] 45 mg PO HS 08/08/21 08/08/21 History Omeprazole 20 mg PO DAILY 08/08/21 08/08/21 History Ondansetron [Zofran ODT] 4 mg PO Q6H PRN 08/08/21 08/08/21 History Potassium Chloride ER [K-Dur 10] 30 meq PO DAILY@1200 08/08/21 08/08/21 History hydrOXYzine pamoate [Vistaril] 100 mg PO TID 08/08/21 08/08/21 History polyethylene glycoL 3350 [Miralax] 17 gm PO DAILY PRN 08/08/21 08/08/21 History Allergies Allergy/AdvReac Type Severity Reaction Status Date / Time mold Allergy Itching Verified 08/08/21 20:46 denosumab [From Prolia] AdvReac SEVERE Verified 08/08/21 20:46 CALCIUM LOSS morphine AdvReac Confusion Verified 08/08/21 20:46 DUST Allergy Itching Uncoded 08/08/21 20:46 Physical Exam Vitals: Vital Signs Temp Pulse Resp BP Pulse Ox 08/12/21 12:40 98.2 F 95 18 135/71 97 08/12/21 08:30 92 124/75 08/12/21 04:27 98.6 F 93 16 152/79 96 08/11/21 21:00 99.6 F 90 16 145/79 97 08/11/21 19:36 90 16 Intake and Output 08/12/21 08/12/21 08/12/21 06:59 14:59 22:59 Intake Total 900 Balance 900 Intake: Intake, IV Titration 900 Amount Dextrose 5%-0.45% NaCl 1, 900 000 ml @ 75 mls/hr IV . [id number] [facility] Rx#:[id number] Other: Voiding Method Toilet Results - Lab Results Most recent lab results Calcium 8.3 mg/dL (8.4-10.2) L 08/12/21 06:23 Phosphorus 2.5 mg/dL (2.5-4.5) 08/12/21 06:23 Magnesium 1.8 mg/dL (1.6-2.3) 08/12/21 06:23 08/12/21 06:30 08/12/21 06:23 Assessment and Plan Plan: Assessment: 1. Chronic kidney disease stage IIIB with baseline creatinine in the range of 1.3-1.5 secondary to nephrosclerosis. 2. Enterococcus UTI. 3. History of gastric ulcer status post gastrectomy with history of aspirations. 4. Chronic kidney disease mineral bone disease maintained on calcitriol. 5. Hyponatremia secondary to hypotonic fluid infusion. 6. Metabolic acidosis secondary to acute kidney injury and IV fluids. Stable. Plan: Change half-normal saline to normal saline at 50 mL an hour. Defer antibiotics for UTI to primary team. Cleared for PICC line placement in the dominant arm. Thank you for the consultation. I will continue to follow the patient with you during her hospital stay.
[2021-08-12] MEDS: ALPRAZolam 0.25 MG TAB PO PRN ×2 (15:22→21:09)
[2021-08-12] MEDS: HYDROmorphone 2 MG TAB PO PRN (18:25)
--- NOTE | 2021-08-12 19:00 | P.PN ---
Subjective Progress Note Date: 08/12/21 Patient is a 76-year-old female with a known history of gastric ulcers status post gastrectomy, recurrent aspiration pneumonia, patient was on TPN with PICC liner checker through [facility] until 2 weeks ago, recommend PICC line infections, sepsis, COPD/asthma, history of CVA, osteoarthritis, CKD stage IV, chronic back pain, cervical pain/spinal stenosis, hypothyroidism, memory impairment, anxiety/depression panic disorder and other multiple medical problems presented by her primary care physician for PICC line placement and TPN. Patient states that she has a legal guardian and was placed on hospice care at a facility and PICC line was taken out. Patient states that she does not want to be in the hospice and contacted primary care physician who recommended to go to ER. Patient does have very minimal oral intake and is cachectic. Complains of nausea and vomiting when she attempts to eat for the past 2 weeks. Patient's TPN was maintained through [facility] physician phone #[phone]. Patient is otherwise denied any complaints of chest pain or shortness of breath. No fever no chills. No dysuria or hematuria. No headache or dizziness or lightheadedness. Laboratory data showed WBC 11.3 hemoglobin 12.5 platelets 420 sodium 143 chloride 105 BUN 20 and creatinine 1.57 Albumin 4.5 AST 43 ALT 402 Urinalysis showed cloudy with 1+ protein moderate leukocytes trace WBC 16 and epithelial cells 11. Occasional bacteria. Blood pressure was elevated on admission 171/85 pulse 120 respiration 18 and pulse ox 95% on room air. On 08/12/2021 patient was seen and examined on the medical floor, at this time I am assuming care of Mrs. Sutton, she was under the care of Dr. Brooke, who was covering for me during my absence last week. Today patient is alert and oriented 3 in no apparent distress, she is very emotional and states that she does not want to , since the last hospitalization, patient was started on hospice care, she has a court-appointed power of car escort, and her TPN has been discontinued, and the PICC line has been removed. Patient is very upset about all this, she is stating that her sister is going to court to try to change guardianship. Patient is stating that she does not want hospice, she wants to be restarted on TPN. Her previous records were reviewed in detail, patient was started on TPN years ago for 2 reasons, first patient was unable to meet her caloric needs via oral intake, and second patient was having recurrent aspiration pneumonia, she is maintained on pured diet, with special precautions while swallowing. At this time patient has evidence of urinary tract infection she had a urine analysis on 08/08/2021 that was positive and a urine culture that was finalized yesterday and was positive for Enterococcus faecalis that is resistant to penicillin, patient is not able to tolerate vancomycin due to recurrent episode of acute kidney failure. She will be started on IV daptomycin, infectious disease consultation is being requested. Today patient has a temperature of 99.6 pulse 90 respiration 16 blood pressure 145/79 and pulse ox of 97% on room air her white blood count is 10.9 hemoglobin 11.6 platelet count 361 sodium 134 potassium 4.3 chloride 105 CO2 22 BUN 21 creatinine 1.2 glucose 100. Patient is complaining of severe anxiety and Xanax will be added to her regimen today, at this time per her request we will proceed with PICC line placement and restarting TPN Objective - Vital Signs Vital signs: Vital Signs Temp 98.2 F 08/12/21 12:40 Pulse 95 08/12/21 12:40 Resp 18 08/12/21 12:40 BP 135/71 08/12/21 12:40 Pulse Ox 97 08/12/21 12:40 Intake & Output 08/11/21 08/12/21 08/12/21 18:59 06:59 18:59 Intake Total 900 Balance 900 Intake: Intake, IV Titration 900 Amount Dextrose 5%-0.45% NaCl 1, 900 000 ml @ 75 mls/hr IV . [id number] [facility] Rx#:[id number] Other: Voiding Method Toilet Toilet Toilet # Voids 2 - Exam In general patient is alert and oriented x 3 in no distress HEENT head normocephalic and atraumatic Neck is supple no JVD no goiter no lymphadenopathy no carotid bruit Chest examination reveals a scattered crackles bilaterally no wheezing Cardiac exam reveals regular heart sounds S1 and S2 no gallops no murmurs Abdomen is soft nontender no organomegaly with normal bowel sounds Extremity exam reveals no edema no cyanosis or clubbing Neurological examination reveals no gross focal deficits - Labs CBC & Chem 7: 08/12/21 06:30 08/12/21 06:23 Labs: Abnormal Lab Results - Last 24 Hours (Table) 08/12/21 08/12/21 Range/Units 06:23 06:30 WBC 10.9 H (3.8-10.6) k/uL MCHC 30.7 L (31.0-37.0) g/dL RDW 17.0 H (11.5-15.5) % Neutrophils # 8.4 H (1.3-7.7) k/uL Sodium 134 L (137-145) mmol/L BUN 21 H (7-17) mg/dL Creatinine 1.20 H (0.52-1.04) mg/dL Glucose 100 H (74-99) mg/dL Calcium 8.3 L (8.4-10.2) mg/dL Microbiology - Last 24 Hours (Table) 08/08/21 20:10 Urine Culture - Final Urine,Voided Enterococcus faecalis Assessment and Plan Plan: Malnutrition and failure to thrive Acute on chronic kidney disease stage III Recurrent episodes of aspiration pneumonia in the past History of gastric ulcers status post gastrectomy Previous history of CVA Previous history of recurrent PICC line infections and sepsis Underlying history of hypothyroidism Underlying history of migraine headache Underlying history of spinal stenosis and chronic back pain At this time medication and labs were reviewed We'll add IV daptomycin Will add Xanax when necessary Continue with current medications otherwise Request PICC line placement and restarting TPN per patient request Will follow in a.m.
[2021-08-12] MEDS: MIRTAZAPINE 45 MG TABLET PO SCH (20:00)
[2021-08-12] MEDS: ONDANSETRON 4 MG/2 ML VIAL IVP PRN (21:07)
[2021-08-12] MEDS: SODIUM CHLORIDE 0.9% IVPB SCH (21:07)
[2021-08-12] MEDS: DAPTOMYCIN IVPB SCH (21:07)
[2021-08-13] MEDS: HYDROmorphone 2 MG TAB PO PRN ×4 (00:46→21:00)
[2021-08-13] MEDS: ALPRAZolam 0.25 MG TAB PO PRN (04:17)
[2021-08-13] MEDS: METHADONE 5 MG TAB PO SCH ×4 (04:17→20:21)
[2021-08-13] MEDS: LEVOTHYROXINE 100 MCG TAB PO SCH (04:17)
[2021-08-13] MEDS: BUTALB/APAP/CAFF 50-325-40MG TAB PO SCH ×4 (04:17→20:21)
[2021-08-13] MEDS: SYMBICORT 160-4.5 MCG INHALER INHALATION SCH ×2 (07:35→19:16)
[2021-08-13] MEDS: ONDANSETRON 4 MG/2 ML VIAL IVP PRN ×2 (08:40→20:23)
[2021-08-13 09:16] LABS: Basophils # (A) 0.07 X 10*3/uL (0.00-0.10); Basophils % (A) 0.6 %; Eosinophils % (A) 3.6 %; HCT 34.6 % (37.2-46.3); HGB 10.6 g/dL (12.0-15.0); Immature Grans, Automated 0.5 %; Lymphocytes # (A) 1.43 X 10*3/uL (0.90-5.00); Lymphocytes % (A) 12.9 %; MCH 27.5 pg (27.0-32.0); MCHC 30.6 g/dL (32.0-37.0); MCV 89.9 fL (80.0-97.0); Mean Platelet Volume 9.7 fL (9.5-12.2); Monocytes # (A) 0.83 X 10*3/uL (0.20-1.00); Monocytes % (A) 7.5 %; NRBC Per 100 WBC 0 /100 WBCS (0.0-0.0); Neutrophils # (A) 8.28 X 10*3/uL (1.80-7.70); Neutrophils % (A) 74.9 %; Platelet Count 371 X 10*3/uL (140-440); RBC 3.85 X 10*6/uL (4.10-5.20); RDW 17.1 % (11.5-14.5); WBC 11.06 X 10*3/uL (4.50-10.00)
[2021-08-13 09:30] LABS: ALT 21 U/L (8-44); AST 16 U/L (13-35); African American GFR (CKD) 51.6 (60.0-200.0); Albumin 2.9 g/dL (3.8-4.9); Albumin/Globulin Ratio 1.26 (1.60-3.17); Alkaline Phosphatase 250 U/L (41-126); BUN/Creat Ratio 16.83 Ratio (12.00-20.00); Blood Urea Nitrogen 20.2 mg/dL (9.0-27.0); Calcium 8.5 mg/dL (8.7-10.3); Chloride 108 mmol/L (96-109); Globulin 2.3 g/dL (1.6-3.3); Glucose 89 mg/dL (70-110); Non-African American GFR(CKD) 44.5 (60.0-200.0); Potassium 4.1 mmol/L (3.5-5.5); Sodium 139 mmol/L (135-145); Total Bilirubin <0.15 mg/dL (0.30-1.20); Total Protein 5.2 g/dL (6.2-8.2)
[2021-08-13] MEDS: PANTOPRAZOLE 40 MG TABLET PO SCH (10:01)
[2021-08-13] MEDS: ASPIRIN 81 MG PO SCH (10:01)
[2021-08-13] MEDS: busPIRone HCl 10 MG TAB PO SCH ×2 (10:05→20:20)
[2021-08-13] MEDS: buPROPion XL 150 MG TAB.ER.24H PO SCH (10:15)
--- NOTE | 2021-08-13 10:28 | P.PN ---
Subjective Patient is seen in follow-up for chronic kidney disease. Renal function stable. Oral intake fair. No vomiting or diarrhea. Vital signs are stable. General: No acute distress. HEENT: Head exam is unremarkable. Neck is without jugular venous distension. LUNGS: Breath sounds decreased. HEART: Rate and Rhythm are regular. ABDOMEN: Soft, no distention. EXTREMITITES: No edema. Objective - Vital Signs Vital signs: Vital Signs Temp 97.8 F 08/13/21 08:20 Pulse 89 08/13/21 08:20 Resp 18 08/13/21 08:20 BP 148/75 08/13/21 08:20 Pulse Ox 96 08/13/21 08:20 Intake & Output 08/12/21 08/13/21 08/13/21 18:59 06:59 18:59 Intake Total 480 700 Balance 480 700 Weight 38.102 kg Intake: Intake, IV Titration 700 Amount DAPTOmycin 150 mg In 100 Sodium Chloride 0.9% 50 ml @ 100 mls/hr IVPB Q48H [facility] Rx#:[id number] Sodium Chloride 0.9% 1, 600 000 ml @ 50 mls/hr IV . Q20H [facility] Rx#:[id number] Oral 480 Other: Voiding Method Toilet Toilet Toilet # Voids 2 - Labs CBC & Chem 7: 08/13/21 05:48 08/13/21 05:48 Labs: Abnormal Lab Results - Last 24 Hours (Table) 08/12/21 08/12/21 08/13/21 Range/Units 06:23 06:30 05:48 WBC 10.9 H 11.06 H (3.8-10.6) k/uL RBC 3.85 L (4.10-5.20) X 10*6/uL Hgb 10.6 L (12.0-15.0) g/dL Hct 34.6 L (37.2-46.3) % MCHC 30.7 L 30.6 L (31.0-37.0) g/dL RDW 17.0 H 17.1 H (11.5-15.5) % Immature Gran # 0.05 H (0.00-0.04) X 10*3/uL Neutrophils # 8.4 H 8.28 H (1.3-7.7) k/uL Eosinophils # 0.40 H (0.04-0.35) X 10*3/uL Sodium 134 L (137-145) mmol/L Carbon Dioxide (20.0-27.5) mmol/L BUN 21 H (7-17) mg/dL Creatinine 1.20 H (0.52-1.04) mg/dL Est GFR (CKD-EPI)AfAm (60.0-200.0) Est GFR (CKD-EPI)NonAf (60.0-200.0) Glucose 100 H (74-99) mg/dL Calcium 8.3 L (8.4-10.2) mg/dL Total Bilirubin (0.30-1.20) mg/dL Alkaline Phosphatase (41-126) U/L Total Protein (6.2-8.2) g/dL Albumin (3.8-4.9) g/dL Albumin/Globulin Ratio (1.60-3.17) g/dL 08/13/21 Range/Units 05:48 WBC (3.8-10.6) k/uL RBC (4.10-5.20) X 10*6/uL Hgb (12.0-15.0) g/dL Hct (37.2-46.3) % MCHC (31.0-37.0) g/dL RDW (11.5-15.5) % Immature Gran # (0.00-0.04) X 10*3/uL Neutrophils # (1.3-7.7) k/uL Eosinophils # (0.04-0.35) X 10*3/uL Sodium (137-145) mmol/L Carbon Dioxide 19.0 L (20.0-27.5) mmol/L BUN (7-17) mg/dL Creatinine (0.52-1.04) mg/dL Est GFR (CKD-EPI)AfAm 51.6 L (60.0-200.0) Est GFR (CKD-EPI)NonAf 44.5 L (60.0-200.0) Glucose (74-99) mg/dL Calcium 8.5 L (8.4-10.2) mg/dL Total Bilirubin <0.15 L (0.30-1.20) mg/dL Alkaline Phosphatase 250 H (41-126) U/L Total Protein 5.2 L (6.2-8.2) g/dL Albumin 2.9 L (3.8-4.9) g/dL Albumin/Globulin Ratio 1.26 L (1.60-3.17) g/dL Assessment and Plan Plan: Assessment: 1. Chronic kidney disease stage IIIB with baseline creatinine in the range of 1.3-1.5 secondary to nephrosclerosis. 2. Enterococcus UTI. On antibiotics. 3. History of gastric ulcer status post gastrectomy with history of aspirations. 4. Chronic kidney disease mineral bone disease maintained on calcitriol. 5. Hyponatremia secondary to hypotonic fluid infusion. Improved. 6. Metabolic acidosis secondary to acute kidney injury and IV fluids. Plan: Hep-Lock IV fluids. Add oral bicarb. PICC line placement pending
[2021-08-13] MEDS: HEPARIN SODIUM,PORCINE/PF 5,000 UNIT/0.5 ML SYRINGE SQ SCH ×2 (10:34→20:20)
--- NOTE | 2021-08-13 10:47 | CDI ---
Documentation Clarification Form Date: 08/13/2021 10:37:12 AM From: Uma Alfaro CCS, CCDS Admit Date: 08/08/2021 09:35:00 PM Patient Name: Louise Sutton Visit Number: [id number] Discharge Date: ATTENTION: The Clinical Documentation Specialists (CDI) and [facility] Coding Staff appreciate your assistance in clarifying documentation. Please respond to the clarification below the line at the bottom and electronically sign. The CDI & [facility] Coding staff will review the response and follow-up if needed. Please note: Queries are made part of the Legal Health Record. If you have any questions, please contact the author of this message via ITS. Dr. Palmer Desir: Chronic Anemia is documented in the Patient's Medical History without further specificity. Additional specificity regarding the Type & Acuity of Anemia is requested. History/Risk Factors per the 08/09 H/P: Gastric Ulcers status post Gastrectomy, Recurrent Aspiration Pneumonia, was on TPN through [facility] until 2 weeks ago, PICC line infections w/Sepsis; CKF Stage IV, COPD, Asthma, CVA, OA, Chronic Migraines, Chronic back pain & Cervical Stenosis, Hypothyroidism, Memory Loss, Anxiety & Depression, Panic Disorder. Clinical indicators: Presented to the ED on 08/08 with Weakness. Was on TPN until 2 weeks ago, taken off by her legal guardian, placed on Hospice, lives alone and does not want to be on Hospice. Sent to ED by PCP for placement. Patient feels she is starving to , cannot eat, weight loss. Admit with Malnutrition (BMI 15.4), CKD, Anorexia Hemoglobin 08/08: 12.5. 08/09: 10.9. 08/10: 11.2. 08/12: 11.6. 08/13: 10.6 Hematocrit 08/08: 39.6. 08/09: 35.5. 08/10: 35.5. 08/12: 37.8. 08/13: 34.6 Treatment 08/08: Fall precautions, Pneumatic compression, Dysphagia diet level 1, PO Tylenol 650 mg q6H/prn, IV Dextrose/Na Cl 1,000 mls @ 75 mls/hr q1H, po Dilaudid 2 mg x1, po Dolophine 5 mg x1 Please clarify the type and acuity of anemia: [ ] Chronic blood loss anemia [x ] Iron deficiency anemia [ ] Hemolytic anemia [ ] Drug induced anemia [ ] Nutritional anemia [ ] Anemia of chronic kidney disease [ ] Unable to determine [ ] Other, please specify (Template Last Revised: May 2020) MTDD
[2021-08-13] MEDS: SODIUM BICARBONATE TAB 650 MG TAB PO SCH (11:15)
--- NOTE | 2021-08-13 13:07 | P.PN ---
Subjective Progress Note Date: 08/13/21 Principal diagnosis: Malnutitin/failue to thrive The patient is a 76 year old female with an extensive past medical history including, gastric ulcers s/p gastrectomy, recurrent aspiration pneumonia, malnutrition, recurrent PICC line infectins, sepsis, COPD, CVA, GERD, OA, CRF, hypothyroidism, and spinal stenosis. She presented to the on 08/09/21 stating that she was on parenteral nutrition up to 2 weeks ago. She states her guardian placed her on Hospice and took out her PICC line. The patient states she does not want to be in hospice. Patient was sent here by her primary care physician for PICC placement and TPN. Patient has had weight loss. Patient states she is able to eat tiny amount of food, but has unable to tolerate it. She c/o nausea and vomiting when she attempts to eat for the past 2 weeks. 08/09 - Education provided to patient regarding her multiple health conditions. The patient states she wants to live and never wanted to be put on Hospice. She stated her gaurdian put her on hospice without her knowledge or consent. Her goal is prolonged survival despite many hospital readmissions. Information regarding palliative care given to patient. 08/12 The patient is anxious today. She states she is confused on plan of care. She is upset because she has not gotten a PICC line placed or started TPN It was explained that Dr. Laguerre spoke with the director of casework services and expressed that TPN was not being given in a safe manner. She also was concerned that the patient was not following up despite trying to contact the patient multiple times so she will not sign for TPN again. It was explained that the decision to re-start TPN will be up to her attending. Objective - Vital Signs Vital signs: Vital Signs Temp 97.9 F 08/13/21 11:56 Pulse 96 08/13/21 11:56 Resp 16 08/13/21 11:56 BP 119/71 08/13/21 11:56 Pulse Ox 95 08/13/21 11:56 Intake & Output 08/12/21 08/13/21 08/13/21 18:59 06:59 18:59 Intake Total 480 700 Balance 480 700 Weight 38.102 kg Intake: Intake, IV Titration 700 Amount DAPTOmycin 150 mg In 100 Sodium Chloride 0.9% 50 ml @ 100 mls/hr IVPB Q48H [facility] Rx#:[id number] Sodium Chloride 0.9% 1, 600 000 ml @ 50 mls/hr IV . Q20H [facility] Rx#:[id number] Oral 480 Other: Voiding Method Toilet Toilet Toilet # Voids 2 - Exam General: Patient awake alert and oriented x 3. No acute distress. HEENT: Head is atraumatic, normocephalic Neck is supple. Sclerae are clear. Pupils equal, round and reactive to light bilaterally. CV: Heart regular in rate and rhythm positive S1 and S2. No S3. No S4. No clicks, rubs or murmurs. No JVD. Peripheral pulses equal. 2/4 Lungs: CTA No wheezes rales or rhonchi. Respirations even and nonlabored. No intercostal retractions.on RA. Abdomen/GI: Soft. Bowel sounds present in all 4 quadrants. Bowel sounds normoactive. No abdominal tenderness. Musculoskeletal/ Extremities: No tenderness on muscular exam. No ecchymosis. Vascular: Radial pulses equal. 2/4. Skin: No rash. Neurologic: Awake, alert and oriented times 3. Psychiatric: Anxious and emotional - Labs CBC & Chem 7: 08/13/21 05:48 08/13/21 05:48 Labs: Abnormal Lab Results - Last 24 Hours (Table) 08/13/21 08/13/21 Range/Units 05:48 05:48 WBC 11.06 H (4.50-10.00) X 10*3/uL RBC 3.85 L (4.10-5.20) X 10*6/uL Hgb 10.6 L (12.0-15.0) g/dL Hct 34.6 L (37.2-46.3) % MCHC 30.6 L (32.0-37.0) g/dL RDW 17.1 H (11.5-14.5) % Immature Gran # 0.05 H (0.00-0.04) X 10*3/uL Neutrophils # 8.28 H (1.80-7.70) X 10*3/uL Eosinophils # 0.40 H (0.04-0.35) X 10*3/uL Carbon Dioxide 19.0 L (20.0-27.5) mmol/L Est GFR (CKD-EPI)AfAm 51.6 L (60.0-200.0) Est GFR (CKD-EPI)NonAf 44.5 L (60.0-200.0) Calcium 8.5 L (8.7-10.3) mg/dL Total Bilirubin <0.15 L (0.30-1.20) mg/dL Alkaline Phosphatase 250 H (41-126) U/L Total Protein 5.2 L (6.2-8.2) g/dL Albumin 2.9 L (3.8-4.9) g/dL Albumin/Globulin Ratio 1.26 L (1.60-3.17) g/dL Assessment and Plan Plan: Plan: Symptoms * Pain - Patient has chronic back and neck pain and migraines. She takes Methadone, Dilaudid, and Fioricet at home. She does have those available here at the hospital with the addition of Tylenol. She stated her pain is well controlled with this regimen. There is also PRN Narcan orderd. * Energy level/Fatigue - Lately she has been feeling weak and fatigued. She believes this is due to malnutrition and will improve with TPN * SOB - denies, Continue Symbicort and Albuterol neb * Insomnia - Takes Remeron at home and has been continued here, sleeping well * N/V - Whenever the patient tried to eat she is nauseated and occasionally vomits. She is currently on a pureed diet d/t dysphagia. Continue Zofran PRN * Anxiety/Depression - Home Wellbutrin and Buspar continued. Pt denies any depression or anxiety at this time. * Confusion/Agitation - none * Appetite/dysphagia/weight loss - Patient reports a good appetite, but states she is unable to eat. She has a history of dysphagia and recurrent aspiration pneumonia. Encourage PO intake * Constipation - Chronic constipation due to narcotic use - Home Miralax ordered. . * Incontinence - none * Itch - none * Hallucinations - none Plan/Goals: Palliative care STAPLER HAND, director of casework services, and RN met with the patient today. She was very anxious, emotional, and tearful. She was informed that legally, Rosario, will remain her guardian until her sister is able to go to court and take over. Dr. Desir has agreed to start the patient on TPN, and PICC line placement is pending. The concern is the patient will not give herself the TPN or follow up with the physician again. The patient stated she had pneumonia last time, and promised this would not happen again. She states she is educated on how to administer it properly, and has a support person, Jonn, who lives nearby. Code Status - the patient wishes to remain a DNR Yamini Corado [facility]- Palliative Care [facility] [id number] Email: [email or web address] Time with Patient: Less than 30
--- NOTE | 2021-08-13 13:43 | P.PCN ---
Date of Procedure: 08/13/21 Preoperative Diagnosis: failure to thrive Postoperative Diagnosis: same Procedure(s) Performed: picc line aborted. Right basilic vein noted to have thrombus about the indwelling catheter, no target identified in the right upper extremity, left upper extremity not available per nephrology
[2021-08-13] MEDS: MIRTAZAPINE 45 MG TABLET PO SCH (20:21)
[2021-08-14] MEDS: BUTALB/APAP/CAFF 50-325-40MG TAB PO SCH ×4 (04:33→22:06)
[2021-08-14] MEDS: METHADONE 5 MG TAB PO SCH ×4 (04:34→22:06)
[2021-08-14] MEDS: LEVOTHYROXINE 100 MCG TAB PO SCH (04:35)
[2021-08-14] MEDS: HYDROmorphone 2 MG TAB PO PRN ×3 (05:51→19:06)
[2021-08-14] MEDS: SYMBICORT 160-4.5 MCG INHALER INHALATION SCH ×2 (08:22→23:30)
[2021-08-14] MEDS: ONDANSETRON 4 MG/2 ML VIAL IVP PRN ×2 (08:52→17:05)
[2021-08-14] MEDS: PANTOPRAZOLE 40 MG TABLET PO SCH (09:09)
[2021-08-14] MEDS: busPIRone HCl 10 MG TAB PO SCH ×2 (09:10→20:58)
[2021-08-14] MEDS: buPROPion XL 150 MG TAB.ER.24H PO SCH (09:10)
[2021-08-14] MEDS: ASPIRIN 81 MG PO SCH (09:10)
[2021-08-14] MEDS: SODIUM BICARBONATE TAB 650 MG TAB PO SCH (09:11)
[2021-08-14] MEDS: HEPARIN SODIUM,PORCINE/PF 5,000 UNIT/0.5 ML SYRINGE SQ SCH ×2 (09:11→20:59)
--- NOTE | 2021-08-14 09:32 | P.GSCN ---
History of Present Illness Consult date: 08/14/21 Reason for Consult: Need access for TPN Requesting physician: Palmer Desir History of present illness: This is a 76-year-old white female who presented to the emergency department directed by her PCP for PICC line placement. Patient has multiple comorbidities including history of gastric ulcer status post gastrectomy with aspiration pneumonia, chronic kidney disease, malnutrition, anxiety, depression, COPD, chronic back pain, hypothyroidism, and history of CVA. Apparently the patient has nausea and vomiting related to eating, has difficulty with swallowing at times related to previous gastrectomy and aspiration pneumonia. She takes little oral nutrition due to nausea, vomiting, dysphasia. She was seen by vascular surgery for removal of suspected infected tunneled PICC line in February 2021. She was recently down at [facility] and had a PICC line placed in her right upper extremity for TPN however patient does have a legal guardian and the patient states the legal guardian ordered it to be removed as patient was on hospice care. Patient is now stating that she does not want to be on hospice and she wants a PICC line and to supplement her nutrition. Yesterday interventional radiology attempted placement of PICC line in the right basilic vein however, it was was canceled as there was thrombus noted. Apparently nephrology was consulted and had recommended that the PICC l ine be placed in the patient's dominant arm. Patient states she overall does not feel well, she feels weak, states she's not been taking in much nutrition orally. She denies any fevers, chest pain, shortness of breath, abdominal pain. She's been afebrile. She was noted to have urinary tract infectionwith urine culture positive for enterococcus faecalis. Infectious disease has been consulted, has yet to see patient. Review of Systems A 14 point review systems was completed all pertinent positives and negatives as stated in the HPI. Past Medical History Past Medical History: Asthma, COPD, CVA/TIA, GERD/Reflux, Memory Impairment, Osteoarthritis (OA), Pneumonia, Renal Disease, Respiratory Disorder, Thyroid Disorder Additional Past Medical History / Comment(s): Aspiration, pneumonias, covid pneumonia, protein calorie malnutrition, pt was on TPN with PICC line managed thru [facility], chronic anemia, gastric ulcers/PUD, pancreatitis, bowel obstruction/surgery, constipation, CKD stage IV, TIA, chronic migraines, chronic back/cervical pain/spinal stenosis, hypothyroid, hyponatremia. History of Any Multi-Drug Resistant Organisms: Other MDRO Past Surgical History: Back Surgery, Bowel Resection, Hysterectomy, Joint Replacement Additional Past Surgical History / Comment(s): LOWER BACK SURGERY lamenectomy/discetomy then had a revison of that sx. 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, nasal sx d/t broken nose, colonoscopy/egd, PAIN CLINIC PROCEDURES, PORT A CATH INSERTION, LT ADEOLA Past Anesthesia/Blood Transfusion Reactions: No Reported Reaction Additional Past Anesthesia/Blood Transfusion Reaction / Comm: PT RECEIVED BLOOD TRANSFUSIONS AFTER STOMACH SURGERY Past Psychological History: Anxiety, Depression, Panic Disorder Additional Psychological History / Comment(s): Pt resides alone in an apartment She states she has a medical legal guardian, Rosario Oneal. She uses a walker at times to ambulate. She no longer drives, her plaster helper Jonn Parnell drives her to [employer] but has been having health issues so her [employer] drives her if needed. She has ACT visits twice a week to check on her mental health. She recieves her meds in blister packs. Smoking Status: Never smoker Past Alcohol Use History: None Reported Past Drug Use History: None Reported - Past Family History Father Family Medical History: Cancer, Coronary Artery Disease (CAD) Additional Family Medical History / Comment(s): FATHER HAD BLADDER AND KIDNEY CANCER. FATHER HAD TB WHEN HE WAS A CHILD .FATHER AT AGE 87. Mother Family Medical History: Cancer Additional Family Medical History / Comment(s): MOTHER AT AGE 58 OF OVARIAN CANCER. Medications and Allergies Home Medications Medication Instructions Recorded Confirmed Type Ferrous Sulfate [Iron (65 MG 325 mg PO DAILY@1200 11/06/15 08/08/21 History Elemental)] calcitrioL [Calcitriol] 1 mcg PO MOWEFR 06/07/19 08/08/21 History busPIRone HCL [Buspar] 30 mg PO BID 04/14/20 08/08/21 History Butalb/APAP/Caff 50-325-40Mg 1 tab PO Q6H 06/30/20 08/08/21 History [Fioricet 50-325-40] buPROPion XL [Wellbutrin XL] 150 mg PO DAILY 11/04/20 08/08/21 History buPROPion XL [Wellbutrin XL] 300 mg PO DAILY 02/20/21 08/08/21 History Albuterol Sulfate [Albuterol 2 puff INHALATION RT-Q6H PRN 04/07/21 08/08/21 His tory Sulfate Hfa] Budesonide/Formoterol Fumarate 2 puff INHALATION RT-BID 04/07/21 08/08/21 H istory [Symbicort 160-4.5 Mcg Inhaler] Aspirin EC [Ecotrin Low Dose] 81 mg PO DAILY 05/12/21 08/08/21 History Levothyroxine Sodium [Synthroid] 100 mcg PO DAILY@0630 30 Days #30 06/19/21 08/08/21 Rx tab Furosemide [Lasix] 20 mg PO DAILY PRN 08/08/21 08/08/21 History HYDROmorphone [Dilaudid] 2 mg PO Q6H PRN 08/08/21 08/08/21 History Methadone [Dolophine] 5 mg PO Q6H 08/08/21 08/08/21 History Mirtazapine [Remeron] 45 mg PO HS 08/08/21 08/08/21 History Omeprazole 20 mg PO DAILY 08/08/21 08/08/21 History Ondansetron [Zofran ODT] 4 mg PO Q6H PRN 08/08/21 08/08/21 History Potassium Chloride ER [K-Dur 10] 30 meq PO DAILY@1200 08/08/21 08/08/21 History hydrOXYzine pamoate [Vistaril] 100 mg PO TID 08/08/21 08/08/21 History polyethylene glycoL 3350 [Miralax] 17 gm PO DAILY PRN 08/08/21 08/08/21 History Allergies Allergy/AdvReac Type Severity Reaction Status Date / Time mold Allergy Itching Verified 08/08/21 20:46 denosumab [From Prolia] AdvReac SEVERE Verified 08/08/21 20:46 CALCIUM LOSS morphine AdvReac Confusion Verified 08/08/21 20:46 DUST Allergy Itching Uncoded 08/08/21 20:46 Surgical - Exam Vital Signs Temp Pulse Resp BP Pulse Ox 99.5 F 120 H 18 171/85 95 08/08/21 17:07 08/08/21 17:07 08/08/21 17:07 08/08/21 17:07 08/08/21 17:07 General appearance: The patient is alert, oriented, cachectic, appears in no acute distress. HET: Head is normocephalic and atraumatic. Pupils are equal and reactive. Neck: Supple without lymphadenopathy. Trachea midline. No audible carotid bruit. Heart: S1 S2. Regular rate and rhythm. Lungs: Clear to auscultation bilaterally. Abdomen: Soft, thin, nontender, nondistended. Extremities: Normal skin color and turgor. No cyanosis, rash, ulceration, clubbing, or edema. Palpable radial pulses +2 bilaterally. Neurological: Alert and oriented 3. Results - Labs 08/13/21 05:48 08/13/21 05:48 Abnormal Lab Results - Last 24 Hours (Table) 08/13/21 08/13/21 Range/Units 05:48 05:48 WBC 11.06 H (4.50-10.00) X 10*3/uL RBC 3.85 L (4.10-5.20) X 10*6/uL Hgb 10.6 L (12.0-15.0) g/dL Hct 34.6 L (37.2-46.3) % MCHC 30.6 L (32.0-37.0) g/dL RDW 17.1 H (11.5-14.5) % Immature Gran # 0.05 H (0.00-0.04) X 10*3/uL Neutrophils # 8.28 H (1.80-7.70) X 10*3/uL Eosinophils # 0.40 H (0.04-0.35) X 10*3/uL Carbon Dioxide 19.0 L (20.0-27.5) mmol/L Est GFR (CKD-EPI)AfAm 51.6 L (60.0-200.0) Est GFR (CKD-EPI)NonAf 44.5 L (60.0-200.0) Calcium 8.5 L (8.7-10.3) mg/dL Total Bilirubin <0.15 L (0.30-1.20) mg/dL Alkaline Phosphatase 250 H (41-126) U/L Total Protein 5.2 L (6.2-8.2) g/dL Albumin 2.9 L (3.8-4.9) g/dL Albumin/Globulin Ratio 1.26 L (1.60-3.17) g/dL Diabetes panel 08/13/21 Range/Units 05:48 Sodium 139 (135-145) mmol/L Potassium 4.1 (3.5-5.5) mmol/L Chloride 108 (96-109) mmol/L Carbon Dioxide 19.0 L (20.0-27.5) mmol/L BUN 20.2 (9.0-27.0) mg/dL Creatinine 1.2 (0.6-1.5) mg/dL Glucose 89 (70-110) mg/dL Calcium 8.5 L (8.7-10.3) mg/dL AST 16 (13-35) U/L ALT 21 (8-44) U/L Alkaline Phosphatase 250 H (41-126) U/L Total Protein 5.2 L (6.2-8.2) g/dL Albumin 2.9 L (3.8-4.9) g/dL Calcium panel 08/13/21 Range/Units 05:48 Calcium 8.5 L (8.7-10.3) mg/dL Albumin 2.9 L (3.8-4.9) g/dL Pituitary panel 08/13/21 Range/Units 05:48 Sodium 139 (135-145) mmol/L Potassium 4.1 (3.5-5.5) mmol/L Chloride 108 (96-109) mmol/L Carbon Dioxide 19.0 L (20.0-27.5) mmol/L BUN 20.2 (9.0-27.0) mg/dL Creatinine 1.2 (0.6-1.5) mg/dL Glucose 89 (70-110) mg/dL Calcium 8.5 L (8.7-10.3) mg/dL Adrenal panel 08/13/21 Range/Units 05:48 Sodium 139 (135-145) mmol/L Potassium 4.1 (3.5-5.5) mmol/L Chloride 108 (96-109) mmol/L Carbon Dioxide 19.0 L (20.0-27.5) mmol/L BUN 20.2 (9.0-27.0) mg/dL Creatinine 1.2 (0.6-1.5) mg/dL Glucose 89 (70-110) mg/dL Calcium 8.5 L (8.7-10.3) mg/dL Total Bilirubin <0.15 L (0.30-1.20) mg/dL AST 16 (13-35) U/L ALT 21 (8-44) U/L Alkaline Phosphatase 250 H (41-126) U/L Total Protein 5.2 L (6.2-8.2) g/dL Albumin 2.9 L (3.8-4.9) g/dL Assessment and Plan Assessment: 1. Malnutrition, anorexia requesting access for TPN 2. Chronic kidney disease 3. Urinary tract infection 4. Nausea and vomiting Plan: This patient was discussed with Dr. Carter from nephrology. He was notified that attempted PICC line placement in the right upper extremity basilic vein was aborted yesterday due to thrombus by IR. Dr. Carter cleared patient to have PICC line placed in the left upper extremity. Natalie patient's nurse notified, and she will contact chemical lab supervisor. If there is difficulty with placement, please notify vascular surgery and we can consider possible tunneled catheter for TPN if indicated. Thank you for this consultation, vascular surgery will sign off at this time. Please do not hesitate to call us back if needed. The impression and plan of care has been dictated as directed. Dr. Newton I performed a history and examination of this patient, discussed the same with the dictator. I agree with the dictator's note ,documented as a scribe. Any additional findings or plans will be noted.
--- NOTE | 2021-08-14 11:28 | P.PN ---
Subjective Progress Note Date: 08/13/21 Patient is a 76-year-old female with a known history of gastric ulcers status post gastrectomy, recurrent aspiration pneumonia, patient was on TPN with PICC sky line yarder through [facility] until 2 weeks ago, recommend PICC line infections, sepsis, COPD/asthma, history of CVA, osteoarthritis, CKD stage IV, chronic back pain, cervical pain/spinal stenosis, hypothyroidism, memory impairment, anxiety/depression panic disorder and other multiple medical problems presented by her primary care physician for PICC line placement and TPN. Patient states that she has a legal guardian and was placed on hospice care at a facility and PICC line was taken out. Patient states that she does not want to be in the hospice and contacted primary care physician who recommended to go to ER. Patient does have very minimal oral intake and is cachectic. Complains of nausea and vomiting when she attempts to eat for the past 2 weeks. Patient's TPN was maintained through [facility] physician phone #[phone]. Patient is otherwise denied any complaints of chest pain or shortness of breath. No fever no chills. No dysuria or hematuria. No headache or dizziness or lightheadedness. Laboratory data showed WBC 11.3 hemoglobin 12.5 platelets 420 sodium 143 chloride 105 BUN 20 and creatinine 1.57 Albumin 4.5 AST 43 ALT 402 Urinalysis showed cloudy with 1+ protein moderate leukocytes trace WBC 16 and epithelial cells 11. Occasional bacteria. Blood pressure was elevated on admission 171/85 pulse 120 respiration 18 and pulse ox 95% on room air. On 08/12/2021 patient was seen and examined on the medical floor, at this time I am assuming care of Mrs. Sutton, she was under the care of Dr. Brooke, who was covering for me during my absence last week. Today patient is alert and oriented 3 in no apparent distress, she is very emotional and states that she does not want to , since the last hospitalization, patient was started on hospice care, she has a court-appointed power of deputy commonwealth's attorney, and her TPN has been discontinued, and the PICC line has been removed. Patient is very upset about all this, she is stating that her sister is going to court to try to change guardianship. Patient is stating that she does not want hospice, she wants to be restarted on TPN. Her previous records were reviewed in detail, patient was started on TPN years ago for 2 reasons, first patient was unable to meet her caloric needs via oral intake, and second patient was having recurrent aspiration pneumonia, she is maintained on pured diet, with special precautions while swallowing. At this time patient has evidence of urinary tract infection she had a urine analysis on 08/08/2021 that was positive and a urine culture that was finalized yesterday and was positive for Enterococcus faecalis that is resistant to penicillin, patient is not able to tolerate vancomycin due to recurrent episode of acute kidney failure. She will be started on IV daptomycin, infectious disease consultation is being requested. Today patient has a temperature of 99.6 pulse 90 respiration 16 blood pressure 145/79 and pulse ox of 97% on room air her white blood count is 10.9 hemoglobin 11.6 platelet count 361 sodium 134 potassium 4.3 chloride 105 CO2 22 BUN 21 creatinine 1.2 glucose 100. Patient is complaining of severe anxiety and Xanax will be added to her regimen today, at this time per her request we will proceed with PICC line placement and restarting TPN On 08/13/2021 patient is alert and oriented 3. Vascular surgery has been consulted for possible PICC line placement in order to initiate TPN. Social work services are following. At this time patient denies chest pain or shortness breath. Patient denies nausea vomiting or diarrhea. Patient denies any urinary burning or frequency. Nephrology services and infectious disease services are following Objective - Vital Signs Vital signs: Vital Signs Temp 97.9 F 08/13/21 11:56 Pulse 96 08/13/21 11:56 Resp 16 08/13/21 11:56 BP 119/71 08/13/21 11:56 Pulse Ox 95 08/13/21 11:56 Intake & Output 08/13/21 08/13/21 08/14/21 06:59 18:59 06:59 Intake Total 700 Balance 700 Intake: Intake, IV Titration 700 Amount DAPTOmycin 150 mg In 100 Sodium Chloride 0.9% 50 ml @ 100 mls/hr IVPB Q48H [facility] Rx#:[id number] Sodium Chloride 0.9% 1, 600 000 ml @ 50 mls/hr IV . Q20H [facility] Rx#:[id number] Other: Voiding Method Toilet Toilet # Voids 2 # Bowel Movements 1 - Exam In general patient is alert and oriented x 3 in no distress HEENT head normocephalic and atraumatic Neck is supple no JVD no goiter no lymphadenopathy no carotid bruit Chest examination reveals a scattered crackles bilaterally no wheezing Cardiac exam reveals regular heart sounds S1 and S2 no gallops no murmurs Abdomen is soft nontender no organomegaly with normal bowel sounds Extremity exam reveals no edema no cyanosis or clubbing Neurological examination reveals no gross focal deficits - Labs CBC & Chem 7: 08/13/21 05:48 08/13/21 05:48 Labs: Abnormal Lab Results - Last 24 Hours (Table) 08/13/21 08/13/21 Range/Units 05:48 05:48 WBC 11.06 H (4.50-10.00) X 10*3/uL RBC 3.85 L (4.10-5.20) X 10*6/uL Hgb 10.6 L (12.0-15.0) g/dL Hct 34.6 L (37.2-46.3) % MCHC 30.6 L (32.0-37.0) g/dL RDW 17.1 H (11.5-14.5) % Immature Gran # 0.05 H (0.00-0.04) X 10*3/uL Neutrophils # 8.28 H (1.80-7.70) X 10*3/uL Eosinophils # 0.40 H (0.04-0.35) X 10*3/uL Carbon Dioxide 19.0 L (20.0-27.5) mmol/L Est GFR (CKD-EPI)AfAm 51.6 L (60.0-200.0) Est GFR (CKD-EPI)NonAf 44.5 L (60.0-200.0) Calcium 8.5 L (8.7-10.3) mg/dL Total Bilirubin <0.15 L (0.30-1.20) mg/dL Alkaline Phosphatase 250 H (41-126) U/L Total Protein 5.2 L (6.2-8.2) g/dL Albumin 2.9 L (3.8-4.9) g/dL Albumin/Globulin Ratio 1.26 L (1.60-3.17) g/dL Assessment and Plan Plan: Malnutrition and failure to thrive Acute on chronic kidney disease stage III Recurrent episodes of aspiration pneumonia in the past History of gastric ulcers status post gastrectomy Previous history of CVA Previous history of recurrent PICC line infections and sepsis Underlying history of hypothyroidism Underlying history of migraine headache Underlying history of spinal stenosis and chronic back pain At this time medication and labs were reviewed We'll add IV daptomycin Will add Xanax when necessary Continue with current medications otherwise Request PICC line placement and restarting TPN per patient request Will follow in a.m.
--- NOTE | 2021-08-14 11:30 | P.PN ---
Subjective Progress Note Date: 08/14/21 Patient is a 76-year-old female with a known history of gastric ulcers status post gastrectomy, recurrent aspiration pneumonia, patient was on TPN with PICC line and frame poler through [facility] until 2 weeks ago, recommend PICC line infections, sepsis, COPD/asthma, history of CVA, osteoarthritis, CKD stage IV, chronic back pain, cervical pain/spinal stenosis, hypothyroidism, memory impairment, anxiety/depression panic disorder and other multiple medical problems presented by her primary care physician for PICC line placement and TPN. Patient states that she has a legal guardian and was placed on hospice care at a facility and PICC line was taken out. Patient states that she does not want to be in the hospice and contacted primary care physician who recommended to go to ER. Patient does have very minimal oral intake and is cachectic. Complains of nausea and vomiting when she attempts to eat for the past 2 weeks. Patient's TPN was maintained through [facility] physician phone #[phone]. Patient is otherwise denied any complaints of chest pain or shortness of breath. No fever no chills. No dysuria or hematuria. No headache or dizziness or lightheadedness. Laboratory data showed WBC 11.3 hemoglobin 12.5 platelets 420 sodium 143 chloride 105 BUN 20 and creatinine 1.57 Albumin 4.5 AST 43 ALT 402 Urinalysis showed cloudy with 1+ protein moderate leukocytes trace WBC 16 and epithelial cells 11. Occasional bacteria. Blood pressure was elevated on admission 171/85 pulse 120 respiration 18 and pulse ox 95% on room air. On 08/12/2021 patient was seen and examined on the medical floor, at this time I am assuming care of Mrs. Sutton, she was under the care of Dr. Brooke, who was covering for me during my absence last week. Today patient is alert and oriented 3 in no apparent distress, she is very emotional and states that she does not want to , since the last hospitalization, patient was started on hospice care, she has a court-appointed power of audio visual production specialist, and her TPN has been discontinued, and the PICC line has been removed. Patient is very upset about all this, she is stating that her sister is going to court to try to change guardianship. Patient is stating that she does not want hospice, she wants to be restarted on TPN. Her previous records were reviewed in detail, patient was started on TPN years ago for 2 reasons, first patient was unable to meet her caloric needs via oral intake, and second patient was having recurrent aspiration pneumonia, she is maintained on pured diet, with special precautions while swallowing. At this time patient has evidence of urinary tract infection she had a urine analysis on 08/08/2021 that was positive and a urine culture that was finalized yesterday and was positive for Enterococcus faecalis that is resistant to penicillin, patient is not able to tolerate vancomycin due to recurrent episode of acute kidney failure. She will be started on IV daptomycin, infectious disease consultation is being requested. Today patient has a temperature of 99.6 pulse 90 respiration 16 blood pressure 145/79 and pulse ox of 97% on room air her white blood count is 10.9 hemoglobin 11.6 platelet count 361 sodium 134 potassium 4.3 chloride 105 CO2 22 BUN 21 creatinine 1.2 glucose 100. Patient is complaining of severe anxiety and Xanax will be added to her regimen today, at this time per her request we will proceed with PICC line placement and restarting TPN On 08/13/2021 patient is alert and oriented 3. Vascular surgery has been consulted for possible PICC line placement in order to initiate TPN. Social work services are following. At this time patient denies chest pain or shortness breath. Patient denies nausea vomiting or diarrhea. Patient denies any urinary burning or frequency. Nephrology services and infectious disease services are following On 08/14/2021 patient is alert and oriented 3 area and vascular surgery has been consulted for line placement with initiation of TPN. Creatinine 1.2, bun 20.2. White blood cell 11.06. Repeat labs will be ordered for a.m. At this ti ca patient denies chest pain or shortness breath. Patient denies nausea vomiting or diarrhea. Patient denies any urinary burning or frequency. Objective - Vital Signs Vital signs: Vital Signs Temp 97.9 F 08/14/21 08:42 Pulse 85 08/14/21 08:42 Resp 16 08/14/21 08:42 BP 144/77 08/14/21 08:42 Pulse Ox 97 08/14/21 08:42 Intake & Output 08/13/21 08/14/21 08/14/21 18:59 06:59 18:59 Other: Voiding Method Toilet Toilet # Voids 2 5 # Bowel Movements 1 - Exam In general patient is alert and oriented x 3 in no distress HEENT head normocephalic and atraumatic Neck is supple no JVD no goiter no lymphadenopathy no carotid bruit Chest examination reveals a scattered crackles bilaterally no wheezing Cardiac exam reveals regular heart sounds S1 and S2 no gallops no murmurs Abdomen is soft nontender no organomegaly with normal bowel sounds Extremity exam reveals no edema no cyanosis or clubbing Neurological examination reveals no gross focal deficits - Labs CBC & Chem 7: 08/13/21 05:48 08/13/21 05:48 Assessment and Plan Plan: Malnutrition and failure to thrive Acute on chronic kidney disease stage III Recurrent episodes of aspiration pneumonia in the past History of gastric ulcers status post gastrectomy Previous history of CVA Previous history of recurrent PICC line infections and sepsis Underlying history of hypothyroidism Underlying history of migraine headache Underlying history of spinal stenosis and chronic back pain At this time medication and labs were reviewed We'll add IV daptomycin Will add Xanax when necessary Continue with current medications otherwise Request PICC line placement and restarting TPN per patient request Will follow in a.m.
[2021-08-14] MEDS ORDERED: buPROPion XL 150 MG TAB.ER.24H PO ONE (11:45)
--- NOTE | 2021-08-14 13:06 | P.PN ---
Subjective Progress Note Date: 08/14/21 Principal diagnosis: Malnutrition/failure to thrive, UTI The patient is a 76 year old female with an extensive past medical history including, gastric ulcers s/p gastrectomy, recurrent aspiration pneumonia, malnutrition, recurrent PICC line infectins, sepsis, COPD, CVA, GERD, OA, CRF, hypothyroidism, and spinal stenosis. She presented to the on 08/09/21 stating that she was on parenteral nutrition up to 2 weeks ago. She states her guardian placed her on Hospice and took out her PICC line. The patient states she does not want to be in hospice. Patient was sent here by her primary care physician for PICC placement and TPN. Patient has had weight loss. Patient states she is able to eat tiny amount of food, but has unable to tolerate it. She c/o nausea and vomiting when she attempts to eat for the past 2 weeks. 08/09 - Education provided to patient regarding her multiple health conditions. The patient states she wants to live and never wanted to be put on Hospice. She stated her gaurdian put her on hospice without her knowledge or consent. Her goal is prolonged survival despite many hospital readmissions. Information regarding palliative care given to patient. 08/12 The patient is anxious today. She states she is confused on plan of care. She is upset because she has not gotten a PICC line placed or started TPN It was explained that Dr. Laguerre spoke with the binder caser and expressed that TPN was not being given in a safe manner. She also was concerned that the patient was not following up despite trying to contact the patient multiple times so she will not sign for TPN again. It was explained that the decision to re-start TPN will be up to her attending. 08/13 Palliative care E BUSINESS SPECIALIST, binder caser, and RN met with the patient today. She was very anxious, emotional, and tearful. She was informed that legally, Rosario, will remain her guardian until her sister is able to go to court and take over. Dr. Desir has agreed to start the patient on TPN, and PICC line placement is pending. The concern is the patient will not give herself the TPN or follow up with the physician again. The patient stated she had pneumonia last time, and promised this would not happen again. She states she is educated on how to administer it properly, and has a support person, Jonn, who lives nearby. Objective - Vital Signs Vital signs: Vital Signs Temp 97.6 F 08/14/21 11:57 Pulse 88 08/14/21 11:57 Resp 16 08/14/21 11:57 BP 129/87 08/14/21 11:57 Pulse Ox 96 08/14/21 11:57 Intake & Output 08/13/21 08/14/21 08/14/21 18:59 06:59 18:59 Other: Voiding Method Toilet Toilet # Voids 2 5 # Bowel Movements 1 - Exam General: Patient awake alert and oriented x 3. No acute distress. HEENT: Head is atraumatic, normocephalic Neck is supple. Sclerae are clear. Pupils equal, round and reactive to light bilaterally. CV: Heart regular in rate and rhythm positive S1 and S2. No S3. No S4. No clicks, rubs or murmurs. No JVD. Peripheral pulses equal. 2/4 Lungs: CTA No wheezes rales or rhonchi. Respirations even and nonlabored. No intercostal retractions.on RA. Abdomen/GI: Soft. Bowel sounds present in all 4 quadrants. Bowel sounds normoactive. No abdominal tenderness. Musculoskeletal/ Extremities: No tenderness on muscular exam. No ecchymosis. Vascular: Radial pulses equal. 2/4. Skin: No rash. Neurologic: Awake, alert and oriented times 3. Psychiatric: Anxious and emotional - Labs CBC & Chem 7: 08/13/21 05:48 08/13/21 05:48 Assessment and Plan Plan: Symptoms * Pain - Patient has chronic back and neck pain and migraines. She takes Methadone, Dilaudid, and Fioricet at home. She does have those available here at the hospital with the addition of Tylenol. She stated her pain is well controlled with this regimen. There is also PRN Narcan orderd. * Energy level/Fatigue - Lately she has been feeling weak and fatigued. She believes this is due to malnutrition and will improve with TPN * SOB - denies, Continue Symbicort and Albuterol neb * Insomnia - Takes Remeron at home and has been continued here, sleeping well * N/V - Whenever the patient tried to eat she is nauseated and occasionally v omits. She is currently on a pureed diet d/t dysphagia. Continue Zofran PRN * Anxiety/Depression - Home Wellbutrin and Buspar continued. Pt denies any depression or anxiety at this time. * Confusion/Agitation - none * Appetite/dysphagia/weight loss - Patient reports a good appetite, but states she is unable to eat. She has a history of dysphagia and recurrent aspiration pneumonia. Encourage PO intake * Constipation - Chronic constipation due to narcotic use - Home Miralax ordered. * Incontinence - none * Itch - none * Hallucinations - none Plan/Goals: Patient less anxious today and not as emotional. PICC line placement was attempted in the right upper extremity basilic vein. However, it was aborted yesterday due to thrombus by IR. Per vascular surgery- Dr. Carter cleared patient to have PICC line placed in the left upper extremity. If there is difficulty with placement, they will consider possible tunneled catheter for TPN if indicated. Code Status - the patient wishes to remain a DNR Yamini Corado [facility]- Palliative Care [facility] [address] Email: [email or web address] Time with Patient: Less than 30
[2021-08-14] MEDS ORDERED: LIDOCAINE 1% INJ 10MG/ML (20 ML MDV) SQ ONE (13:07)
--- NOTE | 2021-08-14 13:47 | IR ---
EXAMINATION TYPE: IR cvc insert >=5 years DATE OF EXAM: 08/14/2021 COMPARISON: NONE CLINICAL HISTORY: Failure to thrive Needs long-term intravenous access for oval parenteral nutrition. PROCEDURE: Hand hygiene obtained with soap and water and alcohol-based hand rub. After informed consent, the skin overlying the left brachial vein was localized with ultrasound and n oted to be compressible and patent. An ultrasound image was obtained and submitted on the patient's chart. The overlying skin was prepped and draped and Lidocaine was used for local anesthesia. A ski n justyn was made with a scalpel. Access was gained to the vein under ultrasound guidance with a 21 ga uge needle and a 0.018 inch wire was advanced. Access site was dilated with Peel-Away sheath and cat heter tailored to the appropriate length and advanced such that the distal tip is at the cavoatrial j unction. Spot image was obtained verifying placement. Catheter was fixed to the skin and a sterile dressing was placed following hemostasis. Catheter was aspirated and flushed with saline. Patient w as discharged in stable condition without complication.Maximal barrier technique is utilized. Ultras ound image is documented on the chart. Ultrasound used with sterile technique. Fluoro time and fluoroscopic images submitted to document procedure: 76 intraoperative C-arm images, 0.2 minutes fluoroscopy time IMPRESSION: STATUS POST ULTRASOUND AND FLUOROSCOPIC GUIDED PICC LINE PLACEMENT, READY FOR USE. THIS PROCEDURE WAS PERFORMED BY THE UNDERSIGNED.
[2021-08-14 14:45] LABS: African American GFR (CKD) 44 (>60 ml/min/1.73 sqM); Anion Gap 7 mmol/L; Blood Urea Nitrogen 29 mg/dL (7-17); Calcium 8.9 mg/dL (8.4-10.2); Carbon Dioxide 21 mmol/L (22-30); Chloride 108 mmol/L (98-107); Glucose 149 mg/dL (74-99); Magnesium 1.8 mg/dL (1.6-2.3); Non-African American GFR(CKD) 38 (>60 ml/min/1.73 sqM); Phosphorus 3.4 mg/dL (2.5-4.5); Sodium 136 mmol/L (137-145)
[2021-08-14] MEDS ORDERED: MVI, ADULT NO.4 WITH VIT K 10 ML, TRACE (CONC-1ML/DOSE) 1 ML in AMINO ACID 5%-D20W+LYTE... IV ONE ×3 (17:00)
[2021-08-14] MEDS: FAT EMULSION 20% 250 ML in EMPTY BAG 1 BAG IV SCH (17:05)
[2021-08-14] MEDS: DAPTOMYCIN IVPB SCH (19:33)
[2021-08-14] MEDS: SODIUM CHLORIDE 0.9% IVPB SCH (19:33)
[2021-08-14] MEDS: MIRTAZAPINE 45 MG TABLET PO SCH (20:58)
--- NOTE | 2021-08-14 21:42 | P.PN ---
Subjective Progress Note Date: 08/14/21 Principal diagnosis: Enterococcus urinary tract infection Patient is a 76 year female with a past medical history significant for short gut syndrome in this patient is TPN dependent which was recently taken off and the patient was made hospice however the patient refused to be hospice subsequently presented to the hospital with weakness noticed to have a detectable infection urine showing enterococcus that is resistant to penicillin. On today's evaluation that is 08/14/2021, the patient denies having any fever or any chills patient is breathing comfortably on room air she's been complaining of some abdominal pain which seemed to be chronic for her denies any nausea vomiting or diarrhea Objective - Vital Signs Vital signs: Vital Signs Temp 97.6 F 08/14/21 11:57 Pulse 88 08/14/21 11:57 Resp 16 08/14/21 11:57 BP 129/87 08/14/21 11:57 Pulse Ox 96 08/14/21 11:57 Intake & Output 08/13/21 08/14/21 08/14/21 18:59 06:59 18:59 Intake Total 221 Balance 221 Intake: Oral 221 Other: Voiding Method Toilet Toilet # Voids 2 5 # Bowel Movements 1 - Exam GENERAL DESCRIPTION: An elderly female lying in bed in no distress RESPIRATORY SYSTEM: Unlabored breathing , decreased breath sounds at bases HEART: S1 S2 regular rate and rhythm , ABDOMEN: Soft , no tenderness EXTREMITIES: No edema feet - Labs CBC & Chem 7: 08/13/21 05:48 08/14/21 14:19 Labs: Abnormal Lab Results - Last 24 Hours (Table) 08/14/21 Range/Units 14:19 Sodium 136 L (137-145) mmol/L Chloride 108 H (98-107) mmol/L Carbon Dioxide 21 L (22-30) mmol/L BUN 29 H (7-17) mg/dL Creatinine 1.37 H (0.52-1.04) mg/dL Glucose 149 H (74-99) mg/dL Assessment and Plan (1) UTI (urinary tract infection) due to Enterococcus Current Visit: Yes Status: Acute Code(s): N39.0 - URINARY TRACT INFECTION, SITE NOT SPECIFIED; B95.2 - ENTEROCOCCUS THE CAUSE OF DISEASES CLASSIFIED ELSEWHERE SNOMED Code(s): 328873196444191 Plan: 1patient presented to the hospital with weakness which is likely multifactorial and more likely from lack of nutrition as the patient was TPN dependent patient did have a positive UA and urine showing enterococcus however no fever or eleva zita white count more likely cystitis and will continue with a short course of daptomycin Time with Patient: Less than 30
[2021-08-15] MEDS: HYDROmorphone 2 MG TAB PO PRN ×4 (00:50→22:15)
[2021-08-15] MEDS: LEVOTHYROXINE 100 MCG TAB PO SCH (04:15)
[2021-08-15] MEDS: METHADONE 5 MG TAB PO SCH ×4 (04:15→22:15)
[2021-08-15] MEDS: BUTALB/APAP/CAFF 50-325-40MG TAB PO SCH ×4 (04:17→22:15)
[2021-08-15] MEDS: SYMBICORT 160-4.5 MCG INHALER INHALATION SCH ×2 (07:20→19:54)
[2021-08-15] MEDS: buPROPion XL 300 MG TAB.ER.24H PO SCH (08:02)
[2021-08-15] MEDS: SODIUM BICARBONATE TAB 650 MG TAB PO SCH (08:02)
[2021-08-15] MEDS: ASPIRIN 81 MG PO SCH (08:02)
[2021-08-15] MEDS: busPIRone HCl 10 MG TAB PO SCH ×2 (08:02→20:56)
[2021-08-15] MEDS: PANTOPRAZOLE 40 MG TABLET PO SCH (08:02)
[2021-08-15] MEDS: HEPARIN SODIUM,PORCINE/PF 5,000 UNIT/0.5 ML SYRINGE SQ SCH ×2 (08:03→20:55)
[2021-08-15] MEDS: ONDANSETRON 4 MG/2 ML VIAL IVP PRN ×2 (08:03→17:45)
--- NOTE | 2021-08-15 09:14 | P.PN ---
Subjective Progress Note Date: 08/15/21 Principal diagnosis: Malnutrition, need for TPN access She was seen and examined sitting up in bed. Appears that she ate some applesauce off her tray. She did have a PICC line placed in her left upper extremity yesterday by radiology. Objective - Vital Signs Vital signs: Vital Signs Temp 98.1 F 08/15/21 05:00 Pulse 94 08/15/21 05:00 Resp 16 08/15/21 05:00 BP 138/78 08/15/21 05:00 Pulse Ox 96 08/15/21 05:00 Intake & Output 08/14/21 08/15/21 08/15/21 18:59 06:59 18:59 Intake Total 221 1560 Output Total 0 Balance 221 1560 Weight 38.102 kg Intake: Intake, IV Titration 610 Amount DAPTOmycin 150 mg In 50 Sodium Chloride 0.9% 50 ml @ 100 mls/hr IVPB Q48H [facility] Rx#:[id number] Fat Emulsion 20% 250 ml 200 In Empty Bag 1 bag @ 21 mls/hr IV WEEKLY [facility]AD Rx#: [id number] Mvi, Adult No.4 with Vit 360 K 10 ml Trace (Conc-1Ml/ Dose) 1 ml In Amino Acid 5%-D20w+Lytes*E* 1,000 ml @ 30 mls/hr IV .Q24H [facility] Rx#:[id number] Oral 221 950 Output: Gastric Drainage 0 Other: Voiding Method Toilet # Voids 4 1 # Bowel Movements 0 - Exam General appearance: The patient is alert, oriented, appears in no acute distress. HET: Head is normocephalic and atraumatic. Pupils are equal and reactive. Neck: Supple without lymphadenopathy. Trachea midline. Abdomen: Soft, nontender, nondistended. Extremities: Normal skin color and turgor. Left upper extremity with PICC line. Neurological: No focal deficits. Strength and sensation are grossly intact. - Labs CBC & Chem 7: 08/13/21 05:48 08/14/21 14:19 Labs: Abnormal Lab Results - Last 24 Hours (Table) 08/14/21 Range/Units 14:19 Sodium 136 L (137-145) mmol/L Chloride 108 H (98-107) mmol/L Carbon Dioxide 21 L (22-30) mmol/L BUN 29 H (7-17) mg/dL Creatinine 1.37 H (0.52-1.04) mg/dL Glucose 149 H (74-99) mg/dL Assessment and Plan Assessment: 1. Malnutrition, anorexia requesting access for TPN 2. Chronic kidney disease 3. Urinary tract infection 4. Nausea and vomiting Plan: Radiology was able to place PICC line in left upper extremity. There is no need for any vascular surgical intervention. Continue TPN per dietary recommendations. Thank you for this consultation, vascular surgery will sign off at this time. The impression and plan of care has been dictated as directed. Dr. Newton I performed a history and examination of this patient, discussed the same with the dictator. I agree with the dictator's note ,documented as a scribe. Any additional findings or plans will be noted.
--- NOTE | 2021-08-15 10:48 | P.PN ---
Subjective Patient is seen in follow-up for chronic kidney disease. Renal function slightly worse. TPN resumed. Oral intake fair. No vomiting or diarrhea. Vital signs are stable. General: No acute distress. HEENT: Head exam is unremarkable. Neck is without jugular venous distension. LUNGS: Breath sounds decreased. HEART: Rate and Rhythm are regular. ABDOMEN: Soft, no distention. EXTREMITITES: No edema. Objective - Vital Signs Vital signs: Vital Signs Temp 98.1 F 08/15/21 05:00 Pulse 94 08/15/21 05:00 Resp 16 08/15/21 05:00 BP 138/78 08/15/21 05:00 Pulse Ox 96 08/15/21 05:00 Intake & Output 08/14/21 08/15/21 08/15/21 18:59 06:59 18:59 Intake Total 221 1560 Output Total 0 Balance 221 1560 Weight 38.102 kg Intake: Intake, IV Titration 610 Amount DAPTOmycin 150 mg In 50 Sodium Chloride 0.9% 50 ml @ 100 mls/hr IVPB Q48H [facility] Rx#:[id number] Fat Emulsion 20% 250 ml 200 In Empty Bag 1 bag @ 21 mls/hr IV WEEKLY [facility] Rx#: [id number] Mvi, Adult No.4 with Vit 360 K 10 ml Trace (Conc-1Ml/ Dose) 1 ml In Amino Acid 5%-D20w+Lytes*E* 1,000 ml @ 30 mls/hr IV .Q24H [facility] Rx#:[id number] Oral 221 950 Output: Gastric Drainage 0 Other: Voiding Method Toilet # Voids 4 1 # Bowel Movements 0 - Labs CBC & Chem 7: 08/13/21 05:48 08/14/21 14:19 Labs: Abnormal Lab Results - Last 24 Hours (Table) 08/14/21 Range/Units 14:19 Sodium 136 L (137-145) mmol/L Chloride 108 H (98-107) mmol/L Carbon Dioxide 21 L (22-30) mmol/L BUN 29 H (7-17) mg/dL Creatinine 1.37 H (0.52-1.04) mg/dL Glucose 149 H (74-99) mg/dL Assessment and Plan Plan: Assessment: 1. Chronic kidney disease stage IIIB with baseline creatinine in the range of 1.3-1.5 secondary to nephrosclerosis. GFR at baseline. 2. Enterococcus UTI. On antibiotics. 3. History of gastric ulcer status post gastrectomy with history of aspirations. 4. Chronic kidney disease mineral bone disease maintained on calcitriol. 5. Hyponatremia secondary to hypotonic fluid infusion. Improved. 6. Metabolic acidosis secondary to acute kidney injury and IV fluids. On oral bicarb. Better. Plan: No changes from nephrology standpoint. Follow-up outpatient in 1-2 weeks.
[2021-08-15 10:52] LABS: Basophils # (A) 0.06 X 10*3/uL (0.00-0.10); Basophils % (A) 0.5 %; Eosinophils # (A) 0.42 X 10*3/uL (0.04-0.35); Eosinophils % (A) 3.3 %; HCT 33.4 % (37.2-46.3); HGB 10.2 g/dL (12.0-15.0); Immature Grans, Automated 0.5 %; Lymphocytes # (A) 1.71 X 10*3/uL (0.90-5.00); Lymphocytes % (A) 13.6 %; MCH 28.2 pg (27.0-32.0); MCHC 30.5 g/dL (32.0-37.0); MCV 92.3 fL (80.0-97.0); Mean Platelet Volume 9.2 fL (9.5-12.2); Monocytes # (A) 1.05 X 10*3/uL (0.20-1.00); Monocytes % (A) 8.3 %; NRBC Per 100 WBC 0 /100 WBCS (0.0-0.0); Neutrophils # (A) 9.29 X 10*3/uL (1.80-7.70); Neutrophils % (A) 73.8 %; Platelet Count 386 X 10*3/uL (140-440); RBC 3.62 X 10*6/uL (4.10-5.20); RDW 17.1 % (11.5-14.5); WBC 12.59 X 10*3/uL (4.50-10.00)
--- NOTE | 2021-08-15 11:01 | P.PN ---
Subjective Progress Note Date: 08/15/21 Principal diagnosis: Malnutrition, UTI The patient is a 76 year old female with an extensive past medical history including, gastric ulcers s/p gastrectomy, recurrent aspiration pneumonia, malnutrition, recurrent PICC line infectins, sepsis, COPD, CVA, GERD, OA, CRF, hypothyroidism, and spinal stenosis. She presented to the on 08/09/21 stating that she was on parenteral nutrition up to 2 weeks ago. She states her guardian placed her on Hospice and took out her PICC line. The patient states she does not want to be in hospice. Patient was sent here by her primary care physician for PICC placement and TPN. Patient has had weight loss. Patient states she is able to eat tiny amount of food, but has unable to tolerate it. She c/o nausea and vomiting when she attempts to eat for the past 2 weeks. 08/09 - Education provided to patient regarding her multiple health conditions. The patient states she wants to live and never wanted to be put on Hospice. She stated her gaurdian put her on hospice without her knowledge or consent. Her goal is prolonged survival despite many hospital readmissions. Information regarding palliative care given to patient. 08/12 The patient is anxious today. She states she is confused on plan of care. She is upset because she has not gotten a PICC line placed or started TPN It was explained that Dr. Laguerre spoke with the adult protective caseworker and expressed that TPN was not being given in a safe manner. She also was concerned that the patient was not following up despite trying to contact the patient multiple times so she will not sign for TPN again. It was explained that the decision to re-start TPN will be up to her attending. 08/13 Palliative care SMOKED MEAT PREPARER, adult protective caseworker, and RN met with the patient today. She was very anxious, emotional, and tearful. She was informed that legally, Rosario, will remain her guardian until her sister is able to go to court and take over. Dr. Desir has agreed to start the patient on TPN, and PICC line placement is pending. The concern is the patient will not give herself the TPN or follow up with the physician again. The patient stated she had pneumonia last time, and promised this would not happen again. She states she is educated on how to administer it properly, and has a support person, Jonn, who lives nearby. 08/14 Patient less anxious today and not as emotional. PICC line placement was attempted in the right upper extremity basilic vein. However, it was aborted yesterday due to thrombus by IR. Per vascular surgery- Dr. Carter cleared patient to have PICC line placed in the left upper extremity. If there is difficulty with placement, they will consider possible tunneled catheter for TPN if indicated. Objective - Vital Signs Vital signs: Vital Signs Temp 98.1 F 08/15/21 05:00 Pulse 94 08/15/21 05:00 Resp 16 08/15/21 05:00 BP 138/78 08/15/21 05:00 Pulse Ox 96 08/15/21 05:00 Intake & Output 08/14/21 08/15/21 08/15/21 18:59 06:59 18:59 Intake Total 221 1560 Output Total 0 Balance 221 1560 Weight 38.102 kg Intake: Intake, IV Titration 610 Amount DAPTOmycin 150 mg In 50 Sodium Chloride 0.9% 50 ml @ 100 mls/hr IVPB Q48H [facility] Rx#:[id number] Fat Emulsion 20% 250 ml 200 In Empty Bag 1 bag @ 21 mls/hr IV WEEKLY [facility] Rx#: [id number] Mvi, Adult No.4 with Vit 360 K 10 ml Trace (Conc-1Ml/ Dose) 1 ml In Amino Acid 5%-D20w+Lytes*E* 1,000 ml @ 30 mls/hr IV .Q24H [facility] Rx#:[id number] Oral 221 950 Output: Gastric Drainage 0 Other: Voiding Method Toilet # Voids 4 1 # Bowel Movements 0 - Exam General: Patient awake alert and oriented x 3. No acute distress. HEENT: Head is atraumatic, normocephalic Neck is supple. Sclerae are clear. Pupils equal, round and reactive to light bilaterally. CV: Heart regular in rate and rhythm positive S1 and S2. No S3. No S4. No clicks, rubs or murmurs. No JVD. Peripheral pulses equal. 2/4 Lungs: CTA No wheezes rales or rhonchi. Respirations even and nonlabored. No intercostal retractions.on RA. Abdomen/GI: Soft. Bowel sounds present in all 4 quadrants. Bowel sounds normoactive. No abdominal tenderness. Musculoskeletal/ Extremities: No tenderness on muscular exam. No ecchymosis. Vascular: Radial pulses equal. 2/4. Skin: No rash. Neurologic: Awake, alert and oriented times 3. Psychiatric: Anxious, less emotional - Labs CBC & Chem 7: 08/15/21 07:28 08/14/21 14:19 Labs: Abnormal Lab Results - Last 24 Hours (Table) 08/14/21 Range/Units 14:19 Sodium 136 L (137-145) mmol/L Chloride 108 H (98-107) mmol/L Carbon Dioxide 21 L (22-30) mmol/L BUN 29 H (7-17) mg/dL Creatinine 1.37 H (0.52-1.04) mg/dL Glucose 149 H (74-99) mg/dL Assessment and Plan Plan: Symptoms * Pain - Patient has chronic back and neck pain and migraines. She takes Methadone, Dilaudid, and Fioricet at home. She does have those available here at the hospital with the addition of Tylenol. She stated her pain is well controlled with this regimen. There is also PRN Narcan orderd. * Energy level/Fatigue - Lately she has been feeling weak and fatigued. She believes this is due to malnutrition and will improve with TPN * SOB - denies, Continue Symbicort and Albuterol neb * Insomnia - Takes Remeron at home and has been continued here, sleeping well * N/V - Whenever the patient tried to eat she is nauseated and occasionally vomits. She is currently on a pureed diet d/t dysphagia. Continue Zofran PRN * Anxiety/Depression - Wellbutrin and Buspar continued. Pt reports increasing d epression and anxiety. She is taking 300mg Wellbutrin here, but takes 450mg at home. Recommend increasing to home dose. * Confusion/Agitation - none * Appetite/dysphagia/weight loss - Patient reports a good appetite, but states she is unable to eat. She has a history of dysphagia and recurrent aspiration pneumonia. Encourage PO intake * Constipation - Chronic constipation due to narcotic use - Home Miralax ordered. * Incontinence - none * Itch - none * Hallucinations - none Plan/Goals: The patient is in bed. She has a double lumen PICC to the right upper extremity with TPN infusing. She is mildly anxious, stating that her Wellbutrin dosage is wrong. She is taking 300mg here and takes 450mg daily at home. Dr. Desir notified. Code Status - the patient wishes to remain a DNR Yamini Corado [facility] Palliative Care [facility] [id number] Email: [email or web address] Time with Patient: Less than 30
[2021-08-15 11:04] LABS: ALT 25 U/L (8-44); AST 22 U/L (13-35); African American GFR (CKD) 46.8 (60.0-200.0); Albumin 3.1 g/dL (3.8-4.9); Albumin/Globulin Ratio 1.29 (1.60-3.17); Alkaline Phosphatase 256 U/L (41-126); BUN/Creat Ratio 23.31 Ratio (12.00-20.00); Blood Urea Nitrogen 30.3 mg/dL (9.0-27.0); Chloride 103 mmol/L (96-109); Globulin 2.4 g/dL (1.6-3.3); Glucose 109 mg/dL (70-110); Non-African American GFR(CKD) 40.4 (60.0-200.0); Phosphorus 3.7 mg/dL (2.4-5.1); Potassium 4.6 mmol/L (3.5-5.5); Sodium 136 mmol/L (135-145); Total Bilirubin <0.15 mg/dL (0.30-1.20); Total Protein 5.5 g/dL (6.2-8.2)
[2021-08-15] MEDS: buPROPion XL 150 MG TAB.ER.24H PO SCH (12:48)
[2021-08-15] MEDS: MIRTAZAPINE 45 MG TABLET PO SCH (20:56)
[2021-08-15] MEDS: 1: AMINO ACID 5%-D20W+LYTES*E* 1,000 ML 2: MVI, ADULT NO.4 WITH VIT K 10 ML, TRACE (CON IV SCH ×3 (20:56)
--- NOTE | 2021-08-15 22:16 | P.PN ---
Subjective Progress Note Date: 08/15/21 Principal diagnosis: Enterococcus urinary tract infection Patient is a 76 year female with a past medical history significant for short gut syndrome in this patient is TPN dependent which was recently taken off and the patient was made hospice however the patient refused to be hospice subsequently presented to the hospital with weakness noticed to have a detectable infection urine showing enterococcus that is resistant to penicillin. On today's evaluation that is 08/15/2021, the patient remains to be afebrile, patient is breathing comfortably on room air, the patient has been complaining of some abdominal pain which seemed to be chronic for her denies any nausea vomiting or diarrhea Objective - Vital Signs Vital signs: Vital Signs Temp 97.7 F 08/15/21 12:47 Pulse 76 08/15/21 12:47 Resp 18 08/15/21 12:47 BP 126/74 08/15/21 12:47 Pulse Ox 99 08/15/21 12:47 Intake & Output 08/14/21 08/15/21 08/15/21 18:59 06:59 18:59 Intake Total 221 1560 Output Total 0 Balance 221 1560 Weight 38.102 kg Intake: Intake, IV Titration 610 Amount DAPTOmycin 150 mg In 50 Sodium Chloride 0.9% 50 ml @ 100 mls/hr IVPB Q48H [facility] Rx#:[id number] Fat Emulsion 20% 250 ml 200 In Empty Bag 1 bag @ 21 mls/hr IV WEEKLY [facility] Rx#: [id number] Mvi, Adult No.4 with Vit 360 K 10 ml Trace (Conc-1Ml/ Dose) 1 ml In Amino Acid 5%-D20w+Lytes*E* 1,000 ml @ 30 mls/hr IV .Q24H [facility] Rx#:[id number] Oral 221 950 Output: Gastric Drainage 0 Other: Voiding Method Toilet Toilet # Voids 4 1 # Bowel Movements 0 - Exam GENERAL DESCRIPTION: An elderly female lying in bed in no distress RESPIRATORY SYSTEM: Unlabored breathing , decreased breath sounds at bases HEART: S1 S2 regular rate and rhythm , ABDOMEN: Soft , no tenderness EXTREMITIES: No edema feet - Labs CBC & Chem 7: 08/15/21 07:28 08/15/21 07:20 Labs: Abnormal Lab Results - Last 24 Hours (Table) 08/15/21 08/15/21 Range/Units 07:20 07:28 WBC 12.59 H (4.50-10.00) X 10*3/uL RBC 3.62 L (4.10-5.20) X 10*6/uL Hgb 10.2 L (12.0-15.0) g/dL Hct 33.4 L (37.2-46.3) % MCHC 30.5 L (32.0-37.0) g/dL RDW 17.1 H (11.5-14.5) % MPV 9.2 L (9.5-12.2) fL Immature Gran # 0.06 H (0.00-0.04) X 10*3/uL Neutrophils # 9.29 H (1.80-7.70) X 10*3/uL Monocytes # 1.05 H (0.20-1.00) X 10*3/uL Eosinophils # 0.42 H (0.04-0.35) X 10*3/uL BUN 30.3 H (9.0-27.0) mg/dL Est GFR (CKD-EPI)AfAm 46.8 L (60.0-200.0) Est GFR (CKD-EPI)NonAf 40.4 L (60.0-200.0) BUN/Creatinine Ratio 23.31 H (12.00-20.00) Ratio Total Bilirubin <0.15 L (0.30-1.20) mg/dL Alkaline Phosphatase 256 H (41-126) U/L Total Protein 5.5 L (6.2-8.2) g/dL Albumin 3.1 L (3.8-4.9) g/dL Albumin/Globulin Ratio 1.29 L (1.60-3.17) g/dL Assessment and Plan (1) UTI (urinary tract infection) due to Enterococcus Current Visit: Yes Status: Acute Code(s): N39.0 - URINARY TRACT INFECTION, SITE NOT SPECIFIED; B95.2 - ENTEROCOCCUS THE CAUSE OF DISEASES CLASSIFIED ELSEWHERE SNOMED Code(s): 788046571615189 Plan: 1patient presented to the hospital with weakness which is likely multifactorial and more likely from lack of nutrition as the patient was TPN dependent patient did have a positive UA and urine showing enterococcus however no fever or elevated white count more likely cystitis and not a deep infection, short course of daptomycin Time with Patient: Less than 30
[2021-08-16] MEDS: BUTALB/APAP/CAFF 50-325-40MG TAB PO SCH ×4 (04:15→21:29)
[2021-08-16] MEDS: METHADONE 5 MG TAB PO SCH ×4 (04:15→21:30)
[2021-08-16] MEDS: HYDROmorphone 2 MG TAB PO PRN ×4 (04:15→21:43)
[2021-08-16] MEDS: LEVOTHYROXINE 100 MCG TAB PO SCH (04:17)
[2021-08-16 06:40] LABS: African American GFR (CKD) 43 (>60 ml/min/1.73 sqM); Anion Gap 7 mmol/L; Blood Urea Nitrogen 46 mg/dL (7-17); Calcium 8.5 mg/dL (8.4-10.2); Carbon Dioxide 24 mmol/L (22-30); Chloride 103 mmol/L (98-107); Glucose 129 mg/dL (74-99); Magnesium 1.9 mg/dL (1.6-2.3); Non-African American GFR(CKD) 37 (>60 ml/min/1.73 sqM); Potassium 4.9 mmol/L (3.5-5.1); Sodium 134 mmol/L (137-145)
[2021-08-16] MEDS: SYMBICORT 160-4.5 MCG INHALER INHALATION SCH ×2 (08:20→20:04)
[2021-08-16] MEDS: ONDANSETRON 4 MG/2 ML VIAL IVP PRN ×2 (08:23→17:37)
[2021-08-16] MEDS: busPIRone HCl 10 MG TAB PO SCH ×2 (08:24→21:30)
[2021-08-16] MEDS: PANTOPRAZOLE 40 MG TABLET PO SCH (08:24)
[2021-08-16] MEDS: ASPIRIN 81 MG PO SCH (08:24)
[2021-08-16] MEDS: buPROPion XL 300 MG TAB.ER.24H PO SCH (08:24)
[2021-08-16] MEDS: buPROPion XL 150 MG TAB.ER.24H PO SCH (08:24)
[2021-08-16] MEDS: HEPARIN SODIUM,PORCINE/PF 5,000 UNIT/0.5 ML SYRINGE SQ SCH ×2 (08:24→21:31)
[2021-08-16] MEDS: SODIUM BICARBONATE TAB 650 MG TAB PO SCH (08:24)
--- NOTE | 2021-08-16 13:11 | P.PN ---
Subjective Progress Note Date: 08/16/21 Principal diagnosis: Malnutrition, UTI The patient is a 76 year old female with an extensive past medical history including, gastric ulcers s/p gastrectomy, recurrent aspiration pneumonia, malnutrition, recurrent PICC line infectins, sepsis, COPD, CVA, GERD, OA, CRF, hypothyroidism, and spinal stenosis. She presented to the on 08/09/21 stating that she was on parenteral nutrition up to 2 weeks ago. She states her guardian placed her on Hospice and took out her PICC line. The patient states she does not want to be in hospice. Patient was sent here by her primary care physician for PICC placement and TPN. Patient has had weight loss. Patient states she is able to eat tiny amount of food, but has unable to tolerate it. She c/o nausea and vomiting when she attempts to eat for the past 2 weeks. 08/09 - Education provided to patient regarding her multiple health conditions. The patient states she wants to live and never wanted to be put on Hospice. She stated her gaurdian put her on hospice without her knowledge or consent. Her goal is prolonged survival despite many hospital readmissions. Information regarding palliative care given to patient. 08/12 The patient is anxious today. She states she is confused on plan of care. She is upset because she has not gotten a PICC line placed or started TPN It was explained that Dr. Laguerre spoke with the outpatient case manager and expressed that TPN was not being given in a safe manner. She also was concerned that the patient was not following up despite trying to contact the patient multiple times so she will not sign for TPN again. It was explained that the decision to re-start TPN will be up to her attending. 08/13 Palliative care EDUCATION SUPERVISOR, outpatient case manager, and RN met with the patient today. She was very anxious, emotional, and tearful. She was informed that legally, Rosario, will remain her guardian until her sister is able to go to court and take over. Dr. Desir has agreed to start the patient on TPN, and PICC line placement is pending. The concern is the patient will not give herself the TPN or follow up with the physician again. The patient stated she had pneumonia last time, and promised this would not happen again. She states she is educated on how to administer it properly, and has a support person, Jonn, who lives nearby. 08/14 Patient less anxious today and not as emotional. PICC line placement was attempted in the right upper extremity basilic vein. However, it was aborted yesterday due to thrombus by IR. Per vascular surgery- Dr. Carter cleared patient to have PICC line placed in the left upper extremity. If there is difficulty with placement, they will consider possible tunneled catheter for TPN if indicated. 08/15 The patient is in bed. She has a double lumen PICC to the right upper extremity with TPN infusing. She is mildly anxious, stating that her Wellbutrin dosage is wrong. She is taking 300mg here and takes 450mg daily at home. Dr. Desir notified, order for Wellbutrin changed. Objective - Vital Signs Vital signs: Vital Signs Temp 97.9 F 08/16/21 12:09 Pulse 78 08/16/21 12:09 Resp 16 08/16/21 12:09 BP 122/71 08/16/21 12:09 Pulse Ox 98 08/16/21 12:09 Intake & Output 08/15/21 08/16/21 08/16/21 18:59 06:59 18:59 Intake Total 240 1000 Balance 240 1000 Intake: Intake, IV Titration 400 Amount Amino Acid 5%-D20w+Lytes* 400 E* 1,000 ml @ 50 mls/hr IV .BY DURATION [facility] Rx#: [id number] Oral 240 600 Other: Voiding Method Toilet Toilet Toilet # Voids 2 1 - Exam General: Patient awake alert and oriented x 3. No acute distress. HEENT: Head is atraumatic, normocephalic Neck is supple. Sclerae are clear. Pupils equal, round and reactive to light bilaterally. CV: Heart regular in rate and rhythm positive S1 and S2. No S3. No S4. No clicks, rubs or murmurs. No JVD. Peripheral pulses equal. 2/4 Lungs: CTA No wheezes rales or rhonchi. Respirations even and nonlabored. No intercostal retractions.on RA. Abdomen/GI: Soft. Bowel sounds present in all 4 quadrants. Bowel sounds normoactive. No abdominal tenderness. Musculoskeletal/ Extremities: No tenderness on muscular exam. No ecchymosis. Vascular: Radial pulses equal. 2/4. Skin: No rash. Neurologic: Awake, alert and oriented times 3. Psychiatric: Anxious, less emotional - Labs CBC & Chem 7: 08/15/21 07:28 08/16/21 05:49 Labs: Abnormal Lab Results - Last 24 Hours (Table) 08/16/21 Range/Units 05:49 Sodium 134 L (137-145) mmol/L BUN 46 H (7-17) mg/dL Creatinine 1.39 H (0.52-1.04) mg/dL Glucose 129 H (74-99) mg/dL Assessment and Plan Plan: Symptoms * Pain - Patient has chronic back and neck pain and migraines. She takes Methadone, Dilaudid, and Fioricet at home. She does have those available here at the hospital with the addition of Tylenol. She stated her pain is well controlled with this regimen. There is also PRN Narcan orderd. * Energy level/Fatigue - Lately she has been feeling weak and fatigued. She believes this is due to malnutrition and will improve with TPN * SOB - denies, Continue Symbicort and Albuterol neb * Insomnia - Takes Remeron at home and has been continued here, sleeping well * N/V - Whenever the patient tried to eat she is nauseated and occasionally vomits. She is currently on a pureed diet d/t dysphagia. Continue Zofran PRN * Anxiety/Depression - Wellbutrin and Buspar continued. Pt reports increasing depression and anxiety. She is taking 300mg Wellbutrin here, but takes 450mg at home. Recommend increasing to home dose. * Confusion/Agitation - none * Appetite/dysphagia/weight loss - Patient reports a good appetite, but states she is unable to eat. She has a history of dysphagia and recurrent aspiration pneumonia. Encourage PO intake * Constipation - Chronic constipation due to narcotic use - Home Miralax ordered. * Incontinence - none * Itch - none * Hallucinations - none Plan/Goals: The patient is in bed. She has a double lumen PICC to the right upper extremity with TPN infusing. Encouraged oral intake and to increase activity. Code Status - the patient wishes to remain a DNR Yamini Corado [facility]- Palliative Care [facility] [id number] Email: [email or web address] Time with Patient: Less than 30
[2021-08-16] MEDS: 1: AMINO ACID 5%-D20W+LYTES*E* 1,000 ML 2: MVI, ADULT NO.4 WITH VIT K 10 ML, TRACE (CON IV SCH ×3 (13:53)
--- NOTE | 2021-08-16 14:32 | P.PN ---
Subjective Progress Note Date: 08/15/21 Patient is a 76-year-old female with a known history of gastric ulcers status post gastrectomy, recurrent aspiration pneumonia, patient was on TPN with PICC linen room custodian through [facility] until 2 weeks ago, recommend PICC line infections, sepsis, COPD/asthma, history of CVA, osteoarthritis, CKD stage IV, chronic back pain, cervical pain/spinal stenosis, hypothyroidism, memory impairment, anxiety/depression panic disorder and other multiple medical problems presented by her primary care physician for PICC line placement and TPN. Patient states that she has a legal guardian and was placed on hospice care at a facility and PICC line was taken out. Patient states that she does not want to be in the hospice and contacted primary care physician who recommended to go to ER. Patient does have very minimal oral intake and is cachectic. Complains of nausea and vomiting when she attempts to eat for the past 2 weeks. Patient's TPN was maintained through [facility] physician phone #[phone]. Patient is otherwise denied any complaints of chest pain or shortness of breath. No fever no chills. No dysuria or hematuria. No headache or dizziness or lightheadedness. Laboratory data showed WBC 11.3 hemoglobin 12.5 platelets 420 sodium 143 chloride 105 BUN 20 and creatinine 1.57 Albumin 4.5 AST 43 ALT 402 Urinalysis showed cloudy with 1+ protein moderate leukocytes trace WBC 16 and epithelial cells 11. Occasional bacteria. Blood pressure was elevated on admission 171/85 pulse 120 respiration 18 and pulse ox 95% on room air. On 08/12/2021 patient was seen and examined on the medical floor, at this time I am assuming care of Mrs. Sutton, she was under the care of Dr. Brooke, who was covering for me during my absence last week. Today patient is alert and oriented 3 in no apparent distress, she is very emotional and states that she does not want to , since the last hospitalization, patient was started on hospice care, she has a court-appointed power of corporate associate attorney, and her TPN has been discontinued, and the PICC line has been removed. Patient is very upset about all this, she is stating that her sister is going to court to try to change guardianship. Patient is stating that she does not want hospice, she wants to be restarted on TPN. Her previous records were reviewed in detail, patient was started on TPN years ago for 2 reasons, first patient was unable to meet her caloric needs via oral intake, and second patient was having recurrent aspiration pneumonia, she is maintained on pured diet, with special precautions while swallowing. At this time patient has evidence of urinary tract infection she had a urine analysis on 08/08/2021 that was positive and a urine culture that was finalized yesterday and was positive for Enterococcus faecalis that is resistant to penicillin, patient is not able to tolerate vancomycin due to recurrent episode of acute kidney failure. She will be started on IV daptomycin, infectious disease consultation is being requested. Today patient has a temperature of 99.6 pulse 90 respiration 16 blood pressure 145/79 and pulse ox of 97% on room air her white blood count is 10.9 hemoglobin 11.6 platelet count 361 sodium 134 potassium 4.3 chloride 105 CO2 22 BUN 21 creatinine 1.2 glucose 100. Patient is complaining of severe anxiety and Xanax will be added to her regimen today, at this time per her request we will proceed with PICC line placement and restarting TPN On 08/13/2021 patient is alert and oriented 3. Vascular surgery has been consulted for possible PICC line placement in order to initiate TPN. Social work services are following. At this time patient denies chest pain or shortness breath. Patient denies nausea vomiting or diarrhea. Patient denies any urinary burning or frequency. Nephrology services and infectious disease services are following On 08/14/2021 patient is alert and oriented 3 area and vascular surgery has been consulted for line placement with initiation of TPN. Creatinine 1.2, bun 20.2. White blood cell 11.06. Repeat labs will be ordered for a.m. At this ti pr patient denies chest pain or shortness breath. Patient denies nausea vomiting or diarrhea. Patient denies any urinary burning or frequency. On 08/15/2021 patient was seen and examined on the medical floor she is alert and oriented 3 in no apparent distress, there is no fever or chills no headache or dizziness no chest pain or shortness of breath no cough no nausea or vomiting no diarrhea no blood in the stools no burning with urination no frequency or urgency no hematuria PICC line was placed and patient was started on TPN, she is still maintained on IV daptomycin and infectious disease are following, she is complaining of abdominal pain when eating, otherwise she denies any complaints at this time Objective - Vital Signs Vital signs: Vital Signs Temp 97.7 F 08/15/21 12:47 Pulse 76 08/15/21 12:47 Resp 18 08/15/21 12:47 BP 126/74 08/15/21 12:47 Pulse Ox 99 08/15/21 12:47 Intake & Output 08/14/21 08/15/21 08/15/21 18:59 06:59 18:59 Intake Total 221 1560 Output Total 0 Balance 221 1560 Weight 38.102 kg Intake: Intake, IV Titration 610 Amount DAPTOmycin 150 mg In 50 Sodium Chloride 0.9% 50 ml @ 100 mls/hr IVPB Q48H [facility] Rx#:[id number] Fat Emulsion 20% 250 ml 200 In Empty Bag 1 bag @ 21 mls/hr IV WEEKLY [facility] Rx#: [id number] Mvi, Adult No.4 with Vit 360 K 10 ml Trace (Conc-1Ml/ Dose) 1 ml In Amino Acid 5%-D20w+Lytes*E* 1,000 ml @ 30 mls/hr IV .Q24H [facility] Rx#:[id number] Oral 221 950 Output: Gastric Drainage 0 Other: Voiding Method Toilet Toilet # Voids 4 1 # Bowel Movements 0 - Exam In general patient is alert and oriented x 3 in no distress HEENT head normocephalic and atraumatic Neck is supple no JVD no goiter no lymphadenopathy no carotid bruit Chest examination reveals a scattered crackles bilaterally no wheezing Cardiac exam reveals regular heart sounds S1 and S2 no gallops no murmurs Abdomen is soft nontender no organomegaly with normal bowel sounds Extremity exam reveals no edema no cyanosis or clubbing Neurological examination reveals no gross focal deficits - Labs CBC & Chem 7: 08/15/21 07:28 08/16/21 05:49 Labs: Abnormal Lab Results - Last 24 Hours (Table) 08/15/21 08/15/21 Range/Units 07:20 07:28 WBC 12.59 H (4.50-10.00) X 10*3/uL RBC 3.62 L (4.10-5.20) X 10*6/uL Hgb 10.2 L (12.0-15.0) g/dL Hct 33.4 L (37.2-46.3) % MCHC 30.5 L (32.0-37.0) g/dL RDW 17.1 H (11.5-14.5) % MPV 9.2 L (9.5-12.2) fL Immature Gran # 0.06 H (0.00-0.04) X 10*3/uL Neutrophils # 9.29 H (1.80-7.70) X 10*3/uL Monocytes # 1.05 H (0.20-1.00) X 10*3/uL Eosinophils # 0.42 H (0.04-0.35) X 10*3/uL BUN 30.3 H (9.0-27.0) mg/dL Est GFR (CKD-EPI)AfAm 46.8 L (60.0-200.0) Est GFR (CKD-EPI)NonAf 40.4 L (60.0-200.0) BUN/Creatinine Ratio 23.31 H (12.00-20.00) Ratio Total Bilirubin <0.15 L (0.30-1.20) mg/dL Alkaline Phosphatase 256 H (41-126) U/L Total Protein 5.5 L (6.2-8.2) g/dL Albumin 3.1 L (3.8-4.9) g/dL Albumin/Globulin Ratio 1.29 L (1.60-3.17) g/dL Assessment and Plan Plan: Malnutrition and failure to thrive Acute on chronic kidney disease stage III Recurrent episodes of aspiration pneumonia in the past History of gastric ulcers status post gastrectomy Previous history of CVA Previous history of recurrent PICC line infections and sepsis Underlying history of hypothyroidism Underlying history of migraine headache Underlying history of spinal stenosis and chronic back pain At this time medication and labs were reviewed We'll add IV daptomycin Will add Xanax when necessary Continue with current medications otherwise Request PICC line placement and restarting TPN per patient request Will follow in a.m.
--- NOTE | 2021-08-16 14:32 | P.PN ---
Subjective Progress Note Date: 08/16/21 Patient is a 76-year-old female with a known history of gastric ulcers status post gastrectomy, recurrent aspiration pneumonia, patient was on TPN with PICC linen aide through [facility] until 2 weeks ago, recommend PICC line infections, sepsis, COPD/asthma, history of CVA, osteoarthritis, CKD stage IV, chronic back pain, cervical pain/spinal stenosis, hypothyroidism, memory impairment, anxiety/depression panic disorder and other multiple medical problems presented by her primary care physician for PICC line placement and TPN. Patient states that she has a legal guardian and was placed on hospice care at a facility and PICC line was taken out. Patient states that she does not want to be in the hospice and contacted primary care physician who recommended to go to ER. Patient does have very minimal oral intake and is cachectic. Complains of nausea and vomiting when she attempts to eat for the past 2 weeks. Patient's TPN was maintained through [facility] physician phone #[phone]. Patient is otherwise denied any complaints of chest pain or shortness of breath. No fever no chills. No dysuria or hematuria. No headache or dizziness or lightheadedness. Laboratory data showed WBC 11.3 hemoglobin 12.5 platelets 420 sodium 143 chloride 105 BUN 20 and creatinine 1.57 Albumin 4.5 AST 43 ALT 402 Urinalysis showed cloudy with 1+ protein moderate leukocytes trace WBC 16 and epithelial cells 11. Occasional bacteria. Blood pressure was elevated on admission 171/85 pulse 120 respiration 18 and pulse ox 95% on room air. On 08/12/2021 patient was seen and examined on the medical floor, at this time I am assuming care of Mrs. Sutton, she was under the care of Dr. Brooke, who was covering for me during my absence last week. Today patient is alert and oriented 3 in no apparent distress, she is very emotional and states that she does not want to , since the last hospitalization, patient was started on hospice care, she has a court-appointed power of bus and trolley inspecting dispatcher, and her TPN has been discontinued, and the PICC line has been removed. Patient is very upset about all this, she is stating that her sister is going to court to try to change guardianship. Patient is stating that she does not want hospice, she wants to be restarted on TPN. Her previous records were reviewed in detail, patient was started on TPN years ago for 2 reasons, first patient was unable to meet her caloric needs via oral intake, and second patient was having recurrent aspiration pneumonia, she is maintained on pured diet, with special precautions while swallowing. At this time patient has evidence of urinary tract infection she had a urine analysis on 08/08/2021 that was positive and a urine culture that was finalized yesterday and was positive for Enterococcus faecalis that is resistant to penicillin, patient is not able to tolerate vancomycin due to recurrent episode of acute kidney failure. She will be started on IV daptomycin, infectious disease consultation is being requested. Today patient has a temperature of 99.6 pulse 90 respiration 16 blood pressure 145/79 and pulse ox of 97% on room air her white blood count is 10.9 hemoglobin 11.6 platelet count 361 sodium 134 potassium 4.3 chloride 105 CO2 22 BUN 21 creatinine 1.2 glucose 100. Patient is complaining of severe anxiety and Xanax will be added to her regimen today, at this time per her request we will proceed with PICC line placement and restarting TPN On 08/13/2021 patient is alert and oriented 3. Vascular surgery has been consulted for possible PICC line placement in order to initiate TPN. Social work services are following. At this time patient denies chest pain or shortness breath. Patient denies nausea vomiting or diarrhea. Patient denies any urinary burning or frequency. Nephrology services and infectious disease services are following On 08/14/2021 patient is alert and oriented 3 area and vascular surgery has been consulted for line placement with initiation of TPN. Creatinine 1.2, bun 20.2. White blood cell 11.06. Repeat labs will be ordered for a.m. At this ti nm patient denies chest pain or shortness breath. Patient denies nausea vomiting or diarrhea. Patient denies any urinary burning or frequency. On 08/15/2021 patient was seen and examined on the medical floor she is alert and oriented 3 in no apparent distress, there is no fever or chills no headache or dizziness no chest pain or shortness of breath no cough no nausea or vomiting no diarrhea no blood in the stools no burning with urination no frequency or urgency no hematuria PICC line was placed and patient was started on TPN, she is still maintained on IV daptomycin and infectious disease are following, she is complaining of abdominal pain when eating, otherwise she denies any complaints at this time On 08/16/2021 patient was seen and examined on the medical floor she is alert and oriented 3 in no apparent distress, PICC line was placed and patient was started on TPN, she is still maintained on IV daptomycin and infectious disease are following, she is complaining of abdominal pain when eating, otherwise she denies any complaints at this time Objective - Vital Signs Vital signs: Vital Signs Temp 97.9 F 08/16/21 12:09 Pulse 78 08/16/21 12:09 Resp 16 08/16/21 12:09 BP 122/71 08/16/21 12:09 Pulse Ox 98 08/16/21 12:09 Intake & Output 08/15/21 08/16/21 08/16/21 18:59 06:59 18:59 Intake Total 240 1000 Balance 240 1000 Intake: Intake, IV Titration 400 Amount Amino Acid 5%-D20w+Lytes* 400 E* 1,000 ml @ 50 mls/hr IV .BY DURATION CHAD Rx#: [id number] Oral 240 600 Other: Voiding Method Toilet Toilet Toilet # Voids 2 1 - Exam In general patient is alert and oriented x 3 in no distress HEENT head normocephalic and atraumatic Neck is supple no JVD no goiter no lymphadenopathy no carotid bruit Chest examination reveals a scattered crackles bilaterally no wheezing Cardiac exam reveals regular heart sounds S1 and S2 no gallops no murmurs Abdomen is soft nontender no organomegaly with normal bowel sounds Extremity exam reveals no edema no cyanosis or clubbing Neurological examination reveals no gross focal deficits - Labs CBC & Chem 7: 08/15/21 07:28 08/16/21 05:49 Labs: Abnormal Lab Results - Last 24 Hours (Table) 08/16/21 Range/Units 05:49 Sodium 134 L (137-145) mmol/L BUN 46 H (7-17) mg/dL Creatinine 1.39 H (0.52-1.04) mg/dL Glucose 129 H (74-99) mg/dL Assessment and Plan Plan: Malnutrition and failure to thrive Acute on chronic kidney disease stage III Recurrent episodes of aspiration pneumonia in the past History of gastric ulcers status post gastrectomy Previous history of CVA Previous history of recurrent PICC line infections and sepsis Underlying history of hypothyroidism Underlying history of migraine headache Underlying history of spinal stenosis and chronic back pain At this time medication and labs were reviewed We'll add IV daptomycin Will add Xanax when necessary Continue with current medications otherwise Request PICC line placement and restarting TPN per patient request Will follow in a.m.
--- NOTE | 2021-08-16 17:06 | P.PN ---
Subjective Progress Note Date: 08/16/21 Principal diagnosis: Enterococcus urinary tract infection Patient is a 76 year female with a past medical history significant for short gut syndrome in this patient is TPN dependent which was recently taken off and the patient was made hospice however the patient refused to be hospice subsequently presented to the hospital with weakness noticed to have a detectable infection urine showing enterococcus that is resistant to penicillin. On today's evaluation that is 08/16/2021, the patient is afebrile, patient is breathing comfortably on room air, the patient symptom remains to be upper abdominal pain which seemed to be chronic and denies any worsening, the patient denies any nausea vomiting or diarrhea Objective - Vital Signs Vital signs: Vital Signs Temp 97.9 F 08/16/21 12:09 Pulse 78 08/16/21 12:09 Resp 16 08/16/21 12:09 BP 122/71 08/16/21 12:09 Pulse Ox 98 08/16/21 12:09 Intake & Output 08/15/21 08/16/21 08/16/21 18:59 06:59 18:59 Intake Total 240 1000 Balance 240 1000 Intake: Intake, IV Titration 400 Amount Amino Acid 5%-D20w+Lytes* 400 E* 1,000 ml @ 50 mls/hr IV .BY DURATION CHAD Rx#: [id number] Oral 240 600 Other: Voiding Method Toilet Toilet Toilet # Voids 2 1 - Exam GENERAL DESCRIPTION: An elderly female lying in bed in no distress RESPIRATORY SYSTEM: Unlabored breathing , decreased breath sounds at bases HEART: S1 S2 regular rate and rhythm , ABDOMEN: Soft , no tenderness EXTREMITIES: No edema feet - Labs CBC & Chem 7: 08/15/21 07:28 08/16/21 05:49 Labs: Abnormal Lab Results - Last 24 Hours (Table) 08/16/21 Range/Units 05:49 Sodium 134 L (137-145) mmol/L BUN 46 H (7-17) mg/dL Creatinine 1.39 H (0.52-1.04) mg/dL Glucose 129 H (74-99) mg/dL Assessment and Plan (1) UTI (urinary tract infection) due to Enterococcus Current Visit: Yes Status: Acute Code(s): N39.0 - URINARY TRACT INFECTION, SITE NOT SPECIFIED; B95.2 - ENTEROCOCCUS THE CAUSE OF DISEASES CLASSIFIED ELSEWHERE SNOMED Code(s): 659077305446339 Plan: 1patient presented to the hospital with weakness which is likely multifactorial and more likely from lack of nutrition as the patient was TPN dependent patient did have a positive UA and urine showing enterococcus however no fever or elevated white count more likely cystitis and not a deep infection, short course of daptomycin while inpatient which can be discontinued on discharge Time with Patient: Less than 30
[2021-08-16] MEDS: MIRTAZAPINE 45 MG TABLET PO SCH (21:30)
[2021-08-16] MEDS: DAPTOMYCIN IVPB SCH (21:45)
[2021-08-16] MEDS: SODIUM CHLORIDE 0.9% IVPB SCH (21:45)
[2021-08-17] MEDS: METHADONE 5 MG TAB PO SCH ×4 (04:40→20:08)
[2021-08-17] MEDS: BUTALB/APAP/CAFF 50-325-40MG TAB PO SCH ×4 (04:41→20:07)
[2021-08-17] MEDS: LEVOTHYROXINE 100 MCG TAB PO SCH (05:29)
[2021-08-17] MEDS: HYDROmorphone 2 MG TAB PO PRN ×4 (05:35→23:55)
[2021-08-17 07:26] LABS: ALT 28 U/L (4-34); AST 34 U/L (14-36); African American GFR (CKD) 46 (>60 ml/min/1.73 sqM); Albumin/Globulin Ratio 1.1; Alkaline Phosphatase 224 U/L (38-126); Anion Gap 10 mmol/L; Blood Urea Nitrogen 48 mg/dL (7-17); Calcium 8.8 mg/dL (8.4-10.2); Carbon Dioxide 22 mmol/L (22-30); Chloride 104 mmol/L (98-107); Globulin 2.8 g/dL; Glucose 109 mg/dL (74-99); Non-African American GFR(CKD) 40 (>60 ml/min/1.73 sqM); Phosphorus 3.9 mg/dL (2.5-4.5); Potassium 4.8 mmol/L (3.5-5.1); Sodium 136 mmol/L (137-145); Total Bilirubin 0.3 mg/dL (0.2-1.3); Total Protein 5.8 g/dL (6.3-8.2)
[2021-08-17] MEDS: SYMBICORT 160-4.5 MCG INHALER INHALATION SCH ×2 (07:55→19:36)
[2021-08-17] MEDS: HEPARIN SODIUM,PORCINE/PF 5,000 UNIT/0.5 ML SYRINGE SQ SCH ×2 (08:35→20:06)
[2021-08-17] MEDS: buPROPion XL 150 MG TAB.ER.24H PO SCH (08:35)
[2021-08-17] MEDS: ONDANSETRON 4 MG/2 ML VIAL IVP PRN ×2 (08:35→19:17)
[2021-08-17] MEDS: SODIUM BICARBONATE TAB 650 MG TAB PO SCH (08:35)
[2021-08-17] MEDS: ASPIRIN 81 MG PO SCH (08:35)
[2021-08-17] MEDS: buPROPion XL 300 MG TAB.ER.24H PO SCH (08:35)
[2021-08-17] MEDS: busPIRone HCl 10 MG TAB PO SCH ×2 (08:36→20:07)
[2021-08-17] MEDS: PANTOPRAZOLE 40 MG TABLET PO SCH (08:36)
[2021-08-17] MEDS: 1: AMINO ACID 5%-D20W+LYTES*E* 1,000 ML 2: MVI, ADULT NO.4 WITH VIT K 10 ML, TRACE (CON IV SCH ×6 (09:51→23:00)
--- NOTE | 2021-08-17 09:56 | P.PN ---
Subjective Patient is seen in follow-up for chronic kidney disease. Renal function stable. TPN resumed. Oral intake fair. No vomiting or diarrhea. No active complaints. Vital signs are stable. General: No acute distress. HEENT: Head exam is unremarkable. Neck is without jugular venous distension. LUNGS: Breath sounds decreased. HEART: Rate and Rhythm are regular. ABDOMEN: Soft, no distention. EXTREMITITES: No edema. Objective - Vital Signs Vital signs: Vital Signs Temp 97.9 F 08/17/21 04:12 Pulse 102 H 08/17/21 04:12 Resp 20 08/17/21 04:12 BP 159/83 08/17/21 04:12 Pulse Ox 96 08/17/21 04:12 Intake & Output 08/16/21 08/17/21 08/17/21 18:59 06:59 18:59 Intake Total 1240 300 Balance 1240 300 Weight 38.102 kg Intake: Intake, IV Titration 1000 Amount Amino Acid 5%-D20w+Lytes* 1000 E* 1,000 ml @ 50 mls/hr IV .BY DURATION CHAD Rx#: [id number] Oral 240 300 Other: Voiding Method Toilet Toilet # Voids 3 2 - Labs CBC & Chem 7: 08/15/21 07:28 08/17/21 06:17 Labs: Abnormal Lab Results - Last 24 Hours (Table) 08/17/21 Range/Units 06:17 Sodium 136 L (137-145) mmol/L BUN 48 H (7-17) mg/dL Creatinine 1.32 H (0.52-1.04) mg/dL Glucose 109 H (74-99) mg/dL Alkaline Phosphatase 224 H (38-126) U/L Total Protein 5.8 L (6.3-8.2) g/dL Albumin 3.0 L (3.5-5.0) g/dL Assessment and Plan Plan: Assessment: 1. Chronic kidney disease stage IIIB with baseline creatinine in the range of 1.3-1.5 secondary to nephrosclerosis. GFR at baseline. 2. Enterococcus UTI. On antibiotics. 3. History of gastric ulcer status post gastrectomy with history of aspirations. 4. Chronic kidney disease mineral bone disease maintained on calcitriol. 5. Hyponatremia secondary to hypotonic fluid infusion. Improved. 6. Metabolic acidosis secondary to acute kidney injury and IV fluids. On oral bicarb. Plan: No changes from nephrology standpoint. Follow-up outpatient in 1-2 weeks.
[2021-08-17 11:30] LABS: Basophils # (A) 0.08 X 10*3/uL (0.00-0.10); Basophils % (A) 0.7 %; Eosinophils % (A) 3.6 %; HCT 30.4 % (37.2-46.3); HGB 9.2 g/dL (12.0-15.0); Immature Grans, Automated 0.7 %; Lymphocytes # (A) 1.39 X 10*3/uL (0.90-5.00); Lymphocytes % (A) 12.7 %; MCH 27.5 pg (27.0-32.0); MCHC 30.3 g/dL (32.0-37.0); MCV 90.7 fL (80.0-97.0); Mean Platelet Volume 9.7 fL (9.5-12.2); Monocytes # (A) 1.05 X 10*3/uL (0.20-1.00); Monocytes % (A) 9.6 %; NRBC Per 100 WBC 0 /100 WBCS (0.0-0.0); Neutrophils # (A) 7.98 X 10*3/uL (1.80-7.70); Neutrophils % (A) 72.7 %; Platelet Count 410 X 10*3/uL (140-440); RBC 3.35 X 10*6/uL (4.10-5.20); RDW 17.2 % (11.5-14.5); WBC 10.98 X 10*3/uL (4.50-10.00)
--- NOTE | 2021-08-17 15:20 | P.PN ---
Subjective Progress Note Date: 08/17/21 Patient is a 76-year-old female with a known history of gastric ulcers status post gastrectomy, recurrent aspiration pneumonia, patient was on TPN with PICC trouble lineman through [facility] until 2 weeks ago, recommend PICC line infections, sepsis, COPD/asthma, history of CVA, osteoarthritis, CKD stage IV, chronic back pain, cervical pain/spinal stenosis, hypothyroidism, memory impairment, anxiety/depression panic disorder and other multiple medical problems presented by her primary care physician for PICC line placement and TPN. Patient states that she has a legal guardian and was placed on hospice care at a facility and PICC line was taken out. Patient states that she does not want to be in the hospice and contacted primary care physician who recommended to go to ER. Patient does have very minimal oral intake and is cachectic. Complains of nausea and vomiting when she attempts to eat for the past 2 weeks. Patient's TPN was maintained through [facility] physician phone #[phone]. Patient is otherwise denied any complaints of chest pain or shortness of breath. No fever no chills. No dysuria or hematuria. No headache or dizziness or lightheadedness. Laboratory data showed WBC 11.3 hemoglobin 12.5 platelets 420 sodium 143 chloride 105 BUN 20 and creatinine 1.57 Albumin 4.5 AST 43 ALT 402 Urinalysis showed cloudy with 1+ protein moderate leukocytes trace WBC 16 and epithelial cells 11. Occasional bacteria. Blood pressure was elevated on admission 171/85 pulse 120 respiration 18 and pulse ox 95% on room air. On 08/12/2021 patient was seen and examined on the medical floor, at this time I am assuming care of Mrs. Sutton, she was under the care of Dr. Brooke, who was covering for me during my absence last week. Today patient is alert and oriented 3 in no apparent distress, she is very emotional and states that she does not want to , since the last hospitalization, patient was started on hospice care, she has a court-appointed power of civil rights attorney, and her TPN has been discontinued, and the PICC line has been removed. Patient is very upset about all this, she is stating that her sister is going to court to try to change guardianship. Patient is stating that she does not want hospice, she wants to be restarted on TPN. Her previous records were reviewed in detail, patient was started on TPN years ago for 2 reasons, first patient was unable to meet her caloric needs via oral intake, and second patient was having recurrent aspiration pneumonia, she is maintained on pured diet, with special precautions while swallowing. At this time patient has evidence of urinary tract infection she had a urine analysis on 08/08/2021 that was positive and a urine culture that was finalized yesterday and was positive for Enterococcus faecalis that is resistant to penicillin, patient is not able to tolerate vancomycin due to recurrent episode of acute kidney failure. She will be started on IV daptomycin, infectious disease consultation is being requested. Today patient has a temperature of 99.6 pulse 90 respiration 16 blood pressure 145/79 and pulse ox of 97% on room air her white blood count is 10.9 hemoglobin 11.6 platelet count 361 sodium 134 potassium 4.3 chloride 105 CO2 22 BUN 21 creatinine 1.2 glucose 100. Patient is complaining of severe anxiety and Xanax will be added to her regimen today, at this time per her request we will proceed with PICC line placement and restarting TPN On 08/13/2021 patient is alert and oriented 3. Vascular surgery has been consulted for possible PICC line placement in order to initiate TPN. Social work services are following. At this time patient denies chest pain or shortness breath. Patient denies nausea vomiting or diarrhea. Patient denies any urinary burning or frequency. Nephrology services and infectious disease services are following On 08/14/2021 patient is alert and oriented 3 area and vascular surgery has been consulted for line placement with initiation of TPN. Creatinine 1.2, bun 20.2. White blood cell 11.06. Repeat labs will be ordered for a.m. At this ti tx patient denies chest pain or shortness breath. Patient denies nausea vomiting or diarrhea. Patient denies any urinary burning or frequency. On 08/15/2021 patient was seen and examined on the medical floor she is alert and oriented 3 in no apparent distress, there is no fever or chills no headache or dizziness no chest pain or shortness of breath no cough no nausea or vomiting no diarrhea no blood in the stools no burning with urination no frequency or urgency no hematuria PICC line was placed and patient was started on TPN, she is still maintained on IV daptomycin and infectious disease are following, she is complaining of abdominal pain when eating, otherwise she denies any complaints at this time On 08/16/2021 patient was seen and examined on the medical floor she is alert and oriented 3 in no apparent distress, PICC line was placed and patient was started on TPN, she is still maintained on IV daptomycin and infectious disease are following, she is complaining of abdominal pain when eating, otherwise she denies any complaints at this time. On 08/17/2021 patient was seen and examined on the medical floor she is alert and oriented 3 in no apparent distress, she is complaining of generalized pain otherwise she denies any complaints at this time, vital examination reveals a temperature of 98.3 pulse 88 respiration 18 blood pressure 111/66 pulse ox 97% on room air, laboratory data reveals a white blood count of 10.9 hemoglobin 9.2 platelet count 410 BUN 48 creatinine 1.32 Objective - Vital Signs Vital signs: Vital Signs Temp 98.3 F 08/17/21 11:20 Pulse 88 08/17/21 11:20 Resp 18 08/17/21 11:20 BP 111/66 08/17/21 11:20 Pulse Ox 97 08/17/21 11:20 Intake & Output 08/16/21 08/17/21 08/17/21 18:59 06:59 18:59 Intake Total 1240 300 Balance 1240 300 Weight 38.102 kg Intake: Intake, IV Titration 1000 Amount Amino Acid 5%-D20w+Lytes* 1000 E* 1,000 ml @ 50 mls/hr IV .BY DURATION CHAD Rx#: [id number] Oral 240 300 Other: Voiding Method Toilet Toilet # Voids 3 2 - Exam In general patient is alert and oriented x 3 in no distress HEENT head normocephalic and atraumatic Neck is supple no JVD no goiter no lymphadenopathy no carotid bruit Chest examination reveals a scattered crackles bilaterally no wheezing Cardiac exam reveals regular heart sounds S1 and S2 no gallops no murmurs Abdomen is soft nontender no organomegaly with normal bowel sounds Extremity exam reveals no edema no cyanosis or clubbing Neurological examination reveals no gross focal deficits - Labs CBC & Chem 7: 08/17/21 06:17 08/17/21 06:17 Labs: Abnormal Lab Results - Last 24 Hours (Table) 08/17/21 08/17/21 Range/Units 06:17 06:17 WBC 10.98 H (4.50-10.00) X 10*3/uL RBC 3.35 L (4.10-5.20) X 10*6/uL Hgb 9.2 L (12.0-15.0) g/dL Hct 30.4 L (37.2-46.3) % MCHC 30.3 L (32.0-37.0) g/dL RDW 17.2 H (11.5-14.5) % Immature Gran # 0.08 H (0.00-0.04) X 10*3/uL Neutrophils # 7.98 H (1.80-7.70) X 10*3/uL Monocytes # 1.05 H (0.20-1.00) X 10*3/uL Eosinophils # 0.40 H (0.04-0.35) X 10*3/uL Sodium 136 L (137-145) mmol/L BUN 48 H (7-17) mg/dL Creatinine 1.32 H (0.52-1.04) mg/dL Glucose 109 H (74-99) mg/dL Alkaline Phosphatase 224 H (38-126) U/L Total Protein 5.8 L (6.3-8.2) g/dL Albumin 3.0 L (3.5-5.0) g/dL Assessment and Plan Plan: Malnutrition and failure to thrive Acute on chronic kidney disease stage III Recurrent episodes of aspiration pneumonia in the past History of gastric ulcers status post gastrectomy Previous history of CVA Previous history of recurrent PICC line infections and sepsis Underlying history of hypothyroidism Underlying history of migraine headache Underlying history of spinal stenosis and chronic back pain Anemia cause is unclear, will check stool Hemoccult to assess evidence of gastrointestinal bleeding, will check iron levels vitamin B12 level and folate level At this time medication and labs were reviewed We'll add IV daptomycin Will add Xanax when necessary Continue with current medications otherwise Request PICC line placement and restarting TPN per patient request Will follow in a.m.
[2021-08-17] MEDS: MIRTAZAPINE 45 MG TABLET PO SCH (20:07)
[2021-08-17] MEDS: hydrOXYzine pamoate 25 MG CAP PO PRN (20:16)
[2021-08-18] MEDS: METHADONE 5 MG TAB PO SCH ×4 (04:07→21:17)
[2021-08-18] MEDS: BUTALB/APAP/CAFF 50-325-40MG TAB PO SCH ×4 (04:07→21:17)
[2021-08-18] MEDS: LEVOTHYROXINE 100 MCG TAB PO SCH (05:03)
[2021-08-18 07:14] LABS: ALT 39 U/L (4-34); AST 44 U/L (14-36); African American GFR (CKD) 44 (>60 ml/min/1.73 sqM); Alkaline Phosphatase 218 U/L (38-126); Anion Gap 9 mmol/L; Blood Urea Nitrogen 59 mg/dL (7-17); Calcium 8.7 mg/dL (8.4-10.2); Carbon Dioxide 23 mmol/L (22-30); Chloride 103 mmol/L (98-107); Globulin 2.9 g/dL; Glucose 99 mg/dL (74-99); Magnesium 2.1 mg/dL (1.6-2.3); Non-African American GFR(CKD) 38 (>60 ml/min/1.73 sqM); Phosphorus 3.9 mg/dL (2.5-4.5); Potassium 5.2 mmol/L (3.5-5.1); Sodium 135 mmol/L (137-145); Total Bilirubin 0.4 mg/dL (0.2-1.3); Total Protein 5.9 g/dL (6.3-8.2)
[2021-08-18] MEDS: HEPARIN SODIUM,PORCINE/PF 5,000 UNIT/0.5 ML SYRINGE SQ SCH ×2 (07:23→21:18)
[2021-08-18] MEDS: ASPIRIN 81 MG PO SCH (07:23)
[2021-08-18] MEDS: PANTOPRAZOLE 40 MG TABLET PO SCH (07:23)
[2021-08-18] MEDS: buPROPion XL 150 MG TAB.ER.24H PO SCH (07:23)
[2021-08-18] MEDS: HYDROmorphone 2 MG TAB PO PRN ×3 (07:24→22:36)
[2021-08-18] MEDS: SODIUM BICARBONATE TAB 650 MG TAB PO SCH (07:24)
[2021-08-18] MEDS: buPROPion XL 300 MG TAB.ER.24H PO SCH (07:24)
[2021-08-18] MEDS: busPIRone HCl 10 MG TAB PO SCH ×2 (07:25→20:07)
[2021-08-18] MEDS: SYMBICORT 160-4.5 MCG INHALER INHALATION SCH ×2 (08:59→19:54)
[2021-08-18 09:19] LABS: Basophils # (A) 0.06 X 10*3/uL (0.00-0.10); Basophils % (A) 0.5 %; Eosinophils # (A) 0.37 X 10*3/uL (0.04-0.35); Eosinophils % (A) 3.2 %; HCT 28.8 % (37.2-46.3); HGB 8.9 g/dL (12.0-15.0); Immature Grans, Automated 0.7 %; Lymphocytes # (A) 1.44 X 10*3/uL (0.90-5.00); Lymphocytes % (A) 12.4 %; MCH 27.7 pg (27.0-32.0); MCHC 30.9 g/dL (32.0-37.0); MCV 89.7 fL (80.0-97.0); Monocytes # (A) 1.23 X 10*3/uL (0.20-1.00); Monocytes % (A) 10.6 %; NRBC Per 100 WBC 0 /100 WBCS (0.0-0.0); Neutrophils # (A) 8.47 X 10*3/uL (1.80-7.70); Neutrophils % (A) 72.6 %; Platelet Count 425 X 10*3/uL (140-440); RBC 3.21 X 10*6/uL (4.10-5.20); RDW 17.1 % (11.5-14.5); WBC 11.65 X 10*3/uL (4.50-10.00)
--- NOTE | 2021-08-18 10:30 | P.PN ---
Subjective Progress Note Date: 08/18/21 Patient is a 76-year-old female with a known history of gastric ulcers status post gastrectomy, recurrent aspiration pneumonia, patient was on TPN with PICC lineman a class through [facility] until 2 weeks ago, recommend PICC line infections, sepsis, COPD/asthma, history of CVA, osteoarthritis, CKD stage IV, chronic back pain, cervical pain/spinal stenosis, hypothyroidism, memory impairment, anxiety/depression panic disorder and other multiple medical problems presented by her primary care physician for PICC line placement and TPN. Patient states that she has a legal guardian and was placed on hospice care at a facility and PICC line was taken out. Patient states that she does not want to be in the hospice and contacted primary care physician who recommended to go to ER. Patient does have very minimal oral intake and is cachectic. Complains of nausea and vomiting when she attempts to eat for the past 2 weeks. Patient's TPN was maintained through [facility] physician phone #[phone]. Patient is otherwise denied any complaints of chest pain or shortness of breath. No fever no chills. No dysuria or hematuria. No headache or dizziness or lightheadedness. Laboratory data showed WBC 11.3 hemoglobin 12.5 platelets 420 sodium 143 chloride 105 BUN 20 and creatinine 1.57 Albumin 4.5 AST 43 ALT 402 Urinalysis showed cloudy with 1+ protein moderate leukocytes trace WBC 16 and epithelial cells 11. Occasional bacteria. Blood pressure was elevated on admission 171/85 pulse 120 respiration 18 and pulse ox 95% on room air. On 08/12/2021 patient was seen and examined on the medical floor, at this time I am assuming care of Mrs. Sutton, she was under the care of Dr. Brooke, who was covering for me during my absence last week. Today patient is alert and oriented 3 in no apparent distress, she is very emotional and states that she does not want to , since the last hospitalization, patient was started on hospice care, she has a court-appointed power of business attorney, and her TPN has been discontinued, and the PICC line has been removed. Patient is very upset about all this, she is stating that her sister is going to court to try to change guardianship. Patient is stating that she does not want hospice, she wants to be restarted on TPN. Her previous records were reviewed in detail, patient was started on TPN years ago for 2 reasons, first patient was unable to meet her caloric needs via oral intake, and second patient was having recurrent aspiration pneumonia, she is maintained on pured diet, with special precautions while swallowing. At this time patient has evidence of urinary tract infection she had a urine analysis on 08/08/2021 that was positive and a urine culture that was finalized yesterday and was positive for Enterococcus faecalis that is resistant to penicillin, patient is not able to tolerate vancomycin due to recurrent episode of acute kidney failure. She will be started on IV daptomycin, infectious disease consultation is being requested. Today patient has a temperature of 99.6 pulse 90 respiration 16 blood pressure 145/79 and pulse ox of 97% on room air her white blood count is 10.9 hemoglobin 11.6 platelet count 361 sodium 134 potassium 4.3 chloride 105 CO2 22 BUN 21 creatinine 1.2 glucose 100. Patient is complaining of severe anxiety and Xanax will be added to her regimen today, at this time per her request we will proceed with PICC line placement and restarting TPN On 08/13/2021 patient is alert and oriented 3. Vascular surgery has been consulted for possible PICC line placement in order to initiate TPN. Social work services are following. At this time patient denies chest pain or shortness breath. Patient denies nausea vomiting or diarrhea. Patient denies any urinary burning or frequency. Nephrology services and infectious disease services are following On 08/14/2021 patient is alert and oriented 3 area and vascular surgery has been consulted for line placement with initiation of TPN. Creatinine 1.2, bun 20.2. White blood cell 11.06. Repeat labs will be ordered for a.m. At this ti co patient denies chest pain or shortness breath. Patient denies nausea vomiting or diarrhea. Patient denies any urinary burning or frequency. On 08/15/2021 patient was seen and examined on the medical floor she is alert and oriented 3 in no apparent distress, there is no fever or chills no headache or dizziness no chest pain or shortness of breath no cough no nausea or vomiting no diarrhea no blood in the stools no burning with urination no frequency or urgency no hematuria PICC line was placed and patient was started on TPN, she is still maintained on IV daptomycin and infectious disease are following, she is complaining of abdominal pain when eating, otherwise she denies any complaints at this time On 08/16/2021 patient was seen and examined on the medical floor she is alert and oriented 3 in no apparent distress, PICC line was placed and patient was started on TPN, she is still maintained on IV daptomycin and infectious disease are following, she is complaining of abdominal pain when eating, otherwise she denies any complaints at this time. On 08/17/2021 patient was seen and examined on the medical floor she is alert and oriented 3 in no apparent distress, she is complaining of generalized pain otherwise she denies any complaints at this time, vital examination reveals a temperature of 98.3 pulse 88 respiration 18 blood pressure 111/66 pulse ox 97% on room air, laboratory data reveals a white blood count of 10.9 hemoglobin 9.2 platelet count 410 BUN 48 creatinine 1.32 On 08/18/2021 patient is alert and oriented 3 resting comfortably in bed. Patient complains of generalized pain. Patient remains on TPN through a PICC line. Per ID patient to continue daptomycin while inpatient but can be discontinued upon discharge. Current vitals temp 97.8, heart rate 95, respiratory rate 20, blood pressure 135/72 with a pulse ox of 95% on room air. Objective - Vital Signs Vital signs: Vital Signs Temp 98.7 F 08/18/21 04:26 Pulse 95 08/18/21 04:26 Resp 20 08/18/21 04:26 BP 135/72 08/18/21 04:26 Pulse Ox 95 08/18/21 04:26 Intake & Output 08/17/21 08/18/21 08/18/21 18:59 06:59 18:59 Intake Total 1611 400 Balance 1611 400 Intake: Intake, IV Titration 1611 Amount Mvi, Adult No.4 with Vit 1611 K 10 ml Trace (Conc-1Ml/ Dose) 1 ml In Amino Acid 5%-D20w+Lytes*E* 1,000 ml @ 50 mls/hr IV .BY DURATION [facility] Rx#: [id number] Oral 400 Other: Voiding Method Toilet # Voids 2 - Exam In general patient is alert and oriented x 3 in no distress HEENT head normocephalic and atraumatic Neck is supple no JVD no goiter no lymphadenopathy no carotid bruit Chest examination reveals a scattered crackles bilaterally no wheezing Cardiac exam reveals regular heart sounds S1 and S2 no gallops no murmurs Abdomen is soft nontender no organomegaly with normal bowel sounds Extremity exam reveals no edema no cyanosis or clubbing Neurological examination reveals no gross focal deficits - Labs CBC & Chem 7: 08/18/21 06:33 08/18/21 06:33 Labs: Abnormal Lab Results - Last 24 Hours (Table) 08/17/21 08/17/21 08/18/21 Range/Units 06:17 06:17 06:33 WBC 10.98 H (4.50-10.00) X 10*3/uL RBC 3.35 L (4.10-5.20) X 10*6/uL Hgb 9.2 L (12.0-15.0) g/dL Hct 30.4 L (37.2-46.3) % MCHC 30.3 L (32.0-37.0) g/dL RDW 17.2 H (11.5-14.5) % Immature Gran # 0.08 H (0.00-0.04) X 10*3/uL Neutrophils # 7.98 H (1.80-7.70) X 10*3/uL Monocytes # 1.05 H (0.20-1.00) X 10*3/uL Eosinophils # 0.40 H (0.04-0.35) X 10*3/uL Sodium 135 L (137-145) mmol/L Potassium 5.2 H (3.5-5.1) mmol/L BUN 59 H (7-17) mg/dL Creatinine 1.36 H (0.52-1.04) mg/dL Iron 25 L (50-170) ug/dL Transferrin 152.0 L (204.0-354.0) mg/dL AST 44 H (14-36) U/L ALT 39 H (4-34) U/L Alkaline Phosphatase 218 H (38-126) U/L Total Protein 5.9 L (6.3-8.2) g/dL Albumin 3.0 L (3.5-5.0) g/dL 08/18/21 Range/Units 06:33 WBC 11.65 H (4.50-10.00) X 10*3/uL RBC 3.21 L (4.10-5.20) X 10*6/uL Hgb 8.9 L (12.0-15.0) g/dL Hct 28.8 L (37.2-46.3) % MCHC 30.9 L (32.0-37.0) g/dL RDW 17.1 H (11.5-14.5) % Immature Gran # 0.08 H (0.00-0.04) X 10*3/uL Neutrophils # 8.47 H (1.80-7.70) X 10*3/uL Monocytes # 1.23 H (0.20-1.00) X 10*3/uL Eosinophils # 0.37 H (0.04-0.35) X 10*3/uL Sodium (137-145) mmol/L Potassium (3.5-5.1) mmol/L BUN (7-17) mg/dL Creatinine (0.52-1.04) mg/dL Iron (50-170) ug/dL Transferrin (204.0-354.0) mg/dL AST (14-36) U/L ALT (4-34) U/L Alkaline Phosphatase (38-126) U/L Total Protein (6.3-8.2) g/dL Albumin (3.5-5.0) g/dL Assessment and Plan Plan: Malnutrition and failure to thrive Acute on chronic kidney disease stage III Recurrent episodes of aspiration pneumonia in the past History of gastric ulcers status post gastrectomy Previous history of CVA Previous history of recurrent PICC line infections and sepsis Underlying history of hypothyroidism Underlying history of migraine headache Underlying history of spinal stenosis and chronic back pain Anemia cause is unclear, will check stool Hemoccult to assess evidence of gastrointestinal bleeding, will check iron levels vitamin B12 level and folate level A tract infection due to enterococcus. Infectious disease services are following patient may complete a short course of daptomycin while inpatient but this can be discontinued upon discharge per ID recommendation At this time medication and labs were reviewed Maintained on IV daptomycin Nephrology and infectious disease services following Will add Xanax when necessary Continue with current medications otherwise PICC line placement and restarting TPN per patient request Will follow in a.m.
[2021-08-18] MEDS: ONDANSETRON 4 MG/2 ML VIAL IVP PRN ×2 (11:08→21:18)
[2021-08-18] MEDS: hydrOXYzine pamoate 25 MG CAP PO PRN ×2 (13:02→21:18)
[2021-08-18] MEDS ORDERED: MAGNESIUM SULFATE IV SCH ×6 (19:00)
[2021-08-18] MEDS ORDERED: [UNRECOGNIZED DRUG - OTHER] IV SCH ×6 (19:00)
[2021-08-18] MEDS ORDERED: SODIUM ACETATE IV SCH ×6 (19:00)
[2021-08-18] MEDS ORDERED: CALCIUM GLUCONATE IV SCH ×6 (19:00)
[2021-08-18] MEDS: SODIUM CHLORIDE 0.9% IVPB SCH (19:36)
[2021-08-18] MEDS: DAPTOMYCIN IVPB SCH (19:36)
[2021-08-18] MEDS: MIRTAZAPINE 45 MG TABLET PO SCH (20:07)
--- NOTE | 2021-08-19 00:02 | P.PN ---
Subjective Progress Note Date: 08/10/21 Principal diagnosis: Enterococcus urinary tract infection Patient is a 76 year female with a past medical history significant for short gut syndrome in this patient is TPN dependent which was recently taken off and the patient was made hospice however the patient refused to be hospice subsequently presented to the hospital with weakness noticed to have a detectable infection urine showing enterococcus that is resistant to penicillin. On today's evaluation that is 08/17/2021, the patient remains to be afebrile, patient is breathing comfortably on room air, the patient upper abdominal pain which seemed to be chronic and as decreased intensity complain of some nausea but no vomiting and no diarrhea Objective - Vital Signs Vital signs: Vital Signs Temp 98.3 F 08/17/21 11:20 Pulse 88 08/17/21 11:20 Resp 18 08/17/21 11:20 BP 111/66 08/17/21 11:20 Pulse Ox 97 08/17/21 11:20 Intake & Output 08/16/21 08/17/21 08/17/21 18:59 06:59 18:59 Intake Total 1240 300 600 Balance 1240 300 600 Weight 38.102 kg Intake: Intake, IV Titration 1000 600 Amount Amino Acid 5%-D20w+Lytes* 1000 E* 1,000 ml @ 50 mls/hr IV .BY DURATION [facility] Rx#: [id number] Mvi, Adult No.4 with Vit 600 K 10 ml Trace (Conc-1Ml/ Dose) 1 ml In Amino Acid 5%-D20w+Lytes*E* 1,000 ml @ 50 mls/hr IV .BY DURATION [facility] Rx#: [id number] Oral 240 300 Other: Voiding Method Toilet Toilet # Voids 3 2 - Exam GENERAL DESCRIPTION: An elderly female lying in bed in no distress RESPIRATORY SYSTEM: Unlabored breathing , decreased breath sounds at bases HEART: S1 S2 regular rate and rhythm , ABDOMEN: Soft , no tenderness EXTREMITIES: No edema feet - Labs CBC & Chem 7: 08/18/21 06:33 08/18/21 06:33 Labs: Abnormal Lab Results - Last 24 Hours (Table) 08/17/21 08/17/21 Range/Units 06:17 06:17 WBC 10.98 H (4.50-10.00) X 10*3/uL RBC 3.35 L (4.10-5.20) X 10*6/uL Hgb 9.2 L (12.0-15.0) g/dL Hct 30.4 L (37.2-46.3) % MCHC 30.3 L (32.0-37.0) g/dL RDW 17.2 H (11.5-14.5) % Immature Gran # 0.08 H (0.00-0.04) X 10*3/uL Neutrophils # 7.98 H (1.80-7.70) X 10*3/uL Monocytes # 1.05 H (0.20-1.00) X 10*3/uL Eosinophils # 0.40 H (0.04-0.35) X 10*3/uL Sodium 136 L (137-145) mmol/L BUN 48 H (7-17) mg/dL Creatinine 1.32 H (0.52-1.04) mg/dL Glucose 109 H (74-99) mg/dL Alkaline Phosphatase 224 H (38-126) U/L Total Protein 5.8 L (6.3-8.2) g/dL Albumin 3.0 L (3.5-5.0) g/dL Assessment and Plan (1) UTI (urinary tract infection) due to Enterococcus Current Visit: Yes Status: Acute Code(s): N39.0 - URINARY TRACT INFECTION, SITE NOT SPECIFIED; B95.2 - ENTEROCOCCUS THE CAUSE OF DISEASES CLASSIFIED ELSEWHERE SNOMED Code(s): 512759192349796 Plan: 1patient presented to the hospital with weakness which is likely multifactorial and more likely from lack of nutrition as the patient was TPN dependent patient did have a positive UA and urine showing enterococcus however no fever or elevated white count more likely cystitis and not a deep infection, patient to continue short course of daptomycin while inpatient and monitor clinical course closely Time with Patient: Less than 30
--- NOTE | 2021-08-19 00:03 | P.PN ---
Subjective Progress Note Date: 08/18/21 Principal diagnosis: Enterococcus urinary tract infection Patient is a 76 year female with a past medical history significant for short gut syndrome in this patient is TPN dependent which was recently taken off and the patient was made hospice however the patient refused to be hospice subsequently presented to the hospital with weakness noticed to have a detectable infection urine showing enterococcus that is resistant to penicillin. On today's evaluation that is 08/18/2021, the patient denies any fever or any chills, patient is breathing comfortably on room air, the patient has been complaining of some cough and production no worsening abdominal pain and some nausea but no vomiting and no diarrhea Objective - Vital Signs Vital signs: Vital Signs Temp 98.4 F 08/18/21 11:04 Pulse 84 08/18/21 11:04 Resp 20 08/18/21 11:04 BP 124/67 08/18/21 11:04 Pulse Ox 97 08/18/21 11:04 Intake & Output 08/17/21 08/18/21 08/18/21 18:59 06:59 18:59 Intake Total 1611 400 Balance 1611 400 Intake: Intake, IV Titration 1611 Amount Mvi, Adult No.4 with Vit 1611 K 10 ml Trace (Conc-1Ml/ Dose) 1 ml In Amino Acid 5%-D20w+Lytes*E* 1,000 ml @ 50 mls/hr IV .[facility] Rx#: [id number] Oral 400 Other: Voiding Method Toilet # Voids 2 - Exam GENERAL DESCRIPTION: An elderly female lying in bed in no distress RESPIRATORY SYSTEM: Unlabored breathing , decreased breath sounds at bases HEART: S1 S2 regular rate and rhythm , ABDOMEN: Soft , no tenderness EXTREMITIES: No edema feet - Labs CBC & Chem 7: 08/18/21 06:33 08/18/21 06:33 Labs: Abnormal Lab Results - Last 24 Hours (Table) 08/17/21 08/18/21 08/18/21 Range/Units 06:17 06:33 06:33 WBC 11.65 H (4.50-10.00) X 10*3/uL RBC 3.21 L (4.10-5.20) X 10*6/uL Hgb 8.9 L (12.0-15.0) g/dL Hct 28.8 L (37.2-46.3) % MCHC 30.9 L (32.0-37.0) g/dL RDW 17.1 H (11.5-14.5) % Immature Gran # 0.08 H (0.00-0.04) X 10*3/uL Neutrophils # 8.47 H (1.80-7.70) X 10*3/uL Monocytes # 1.23 H (0.20-1.00) X 10*3/uL Eosinophils # 0.37 H (0.04-0.35) X 10*3/uL Sodium 135 L (137-145) mmol/L Potassium 5.2 H (3.5-5.1) mmol/L BUN 59 H (7-17) mg/dL Creatinine 1.36 H (0.52-1.04) mg/dL Iron 25 L (50-170) ug/dL Transferrin 152.0 L (204.0-354.0) mg/dL AST 44 H (14-36) U/L ALT 39 H (4-34) U/L Alkaline Phosphatase 218 H (38-126) U/L Total Protein 5.9 L (6.3-8.2) g/dL Albumin 3.0 L (3.5-5.0) g/dL Assessment and Plan (1) UTI (urinary tract infection) due to Enterococcus Current Visit: Yes Status: Acute Code(s): N39.0 - URINARY TRACT INFECTION, SITE NOT SPECIFIED; B95.2 - ENTEROCOCCUS THE CAUSE OF DISEASES CLASSIFIED ELSEWHERE SNOMED Code(s): 377606695408234 Plan: 1patient presented to the hospital with weakness which is likely multifactorial and more likely from lack of nutrition as the patient was TPN dependent patient did have a positive UA and urine showing enterococcus however no fever or elevated white count more likely cystitis and not a deep infection, patient has received about a week of IV daptomycin should be more than enough no need for antibiotics on discharge Time with Patient: Less than 30
[2021-08-19] MEDS: METHADONE 5 MG TAB PO SCH ×4 (04:07→21:58)
[2021-08-19] MEDS: BUTALB/APAP/CAFF 50-325-40MG TAB PO SCH ×4 (04:08→21:58)
[2021-08-19] MEDS: hydrOXYzine pamoate 25 MG CAP PO PRN ×3 (05:31→21:58)
[2021-08-19] MEDS: LEVOTHYROXINE 100 MCG TAB PO SCH (05:31)
[2021-08-19] MEDS: HYDROmorphone 2 MG TAB PO PRN ×4 (05:32→23:58)
[2021-08-19 06:05] LABS: ALT 40 U/L (4-34); AST 41 U/L (14-36); African American GFR (CKD) 43 (>60 ml/min/1.73 sqM); Albumin 3.1 g/dL (3.5-5.0); Albumin/Globulin Ratio 1.1; Alkaline Phosphatase 220 U/L (38-126); Anion Gap 8 mmol/L; Blood Urea Nitrogen 59 mg/dL (7-17); Calcium 8.9 mg/dL (8.4-10.2); Carbon Dioxide 24 mmol/L (22-30); Chloride 104 mmol/L (98-107); Globulin 2.9 g/dL; Glucose 114 mg/dL (74-99); Magnesium 2.2 mg/dL (1.6-2.3); Non-African American GFR(CKD) 37 (>60 ml/min/1.73 sqM); Phosphorus 3.5 mg/dL (2.5-4.5); Potassium 4.8 mmol/L (3.5-5.1); Sodium 136 mmol/L (137-145); Total Bilirubin 0.4 mg/dL (0.2-1.3)
[2021-08-19] MEDS: ONDANSETRON 4 MG/2 ML VIAL IVP PRN ×2 (07:36→16:09)
[2021-08-19] MEDS: PANTOPRAZOLE 40 MG TABLET PO SCH (07:37)
[2021-08-19] MEDS: buPROPion XL 150 MG TAB.ER.24H PO SCH (07:37)
[2021-08-19] MEDS: ASPIRIN 81 MG PO SCH (07:37)
[2021-08-19] MEDS: buPROPion XL 300 MG TAB.ER.24H PO SCH (07:37)
[2021-08-19] MEDS: HEPARIN SODIUM,PORCINE/PF 5,000 UNIT/0.5 ML SYRINGE SQ SCH ×2 (07:37→20:48)
[2021-08-19] MEDS: busPIRone HCl 10 MG TAB PO SCH ×2 (07:37→20:47)
[2021-08-19] MEDS: SODIUM BICARBONATE TAB 650 MG TAB PO SCH (07:37)
[2021-08-19] MEDS: SYMBICORT 160-4.5 MCG INHALER INHALATION SCH ×2 (08:42→19:47)
[2021-08-19 09:13] LABS: Basophils # (A) 0.05 X 10*3/uL (0.00-0.10); Basophils % (A) 0.4 %; Eosinophils % (A) 3.6 %; HCT 29.2 % (37.2-46.3); HGB 8.9 g/dL (12.0-15.0); Immature Grans, Automated 0.8 %; Lymphocytes # (A) 1.38 X 10*3/uL (0.90-5.00); Lymphocytes % (A) 12.4 %; MCH 27.8 pg (27.0-32.0); MCHC 30.5 g/dL (32.0-37.0); MCV 91.3 fL (80.0-97.0); Mean Platelet Volume 9.7 fL (9.5-12.2); Monocytes # (A) 1.24 X 10*3/uL (0.20-1.00); Monocytes % (A) 11.1 %; NRBC Per 100 WBC 0 /100 WBCS (0.0-0.0); Neutrophils # (A) 7.97 X 10*3/uL (1.80-7.70); Neutrophils % (A) 71.7 %; Platelet Count 490 X 10*3/uL (140-440); RDW 16.9 % (11.5-14.5); WBC 11.13 X 10*3/uL (4.50-10.00)
--- NOTE | 2021-08-19 10:58 | P.PN ---
Subjective Patient is seen in follow-up for chronic kidney disease. Renal function stable. Receiving TPN. Oral intake fair. No vomiting or diarrhea. No active complaints. Discharge planning in progress. Vital signs are stable. General: No acute distress. HEENT: Head exam is unremarkable. LUNGS: Breath sounds decreased. HEART: Rate and Rhythm are regular. ABDOMEN: Soft, no distention. EXTREMITITES: No edema. Objective - Vital Signs Vital signs: Vital Signs Temp 98.2 F 08/19/21 04:17 Pulse 95 08/19/21 04:17 Resp 16 08/19/21 04:17 BP 147/83 08/19/21 04:17 Pulse Ox 97 08/19/21 04:17 Intake & Output 08/18/21 08/19/21 08/19/21 18:59 06:59 18:59 Intake Total 600 600 Balance 600 600 Intake: Intake, IV Titration 600 Amount Mvi, Adult No.4 with Vit 600 K 10 ml Trace (Conc-1Ml/ Dose) 1 ml In Amino Acid 5%-D20w+Lytes*E* 1,000 ml @ 50 mls/hr IV .BY DURATION [facility] Rx#: [id number] Oral 600 Other: Voiding Method Toilet # Voids 4 # Bowel Movements 1 - Labs CBC & Chem 7: 08/19/21 05:22 08/19/21 05:22 Labs: Abnormal Lab Results - Last 24 Hours (Table) 08/19/21 08/19/21 Range/Units 05:22 05:22 WBC 11.13 H (4.50-10.00) X 10*3/uL RBC 3.20 L (4.10-5.20) X 10*6/uL Hgb 8.9 L (12.0-15.0) g/dL Hct 29.2 L (37.2-46.3) % MCHC 30.5 L (32.0-37.0) g/dL RDW 16.9 H (11.5-14.5) % Plt Count 490 H (140-440) X 10*3/uL Immature Gran # 0.09 H (0.00-0.04) X 10*3/uL Neutrophils # 7.97 H (1.80-7.70) X 10*3/uL Monocytes # 1.24 H (0.20-1.00) X 10*3/uL Eosinophils # 0.40 H (0.04-0.35) X 10*3/uL Sodium 136 L (137-145) mmol/L BUN 59 H (7-17) mg/dL Creatinine 1.39 H (0.52-1.04) mg/dL Glucose 114 H (74-99) mg/dL AST 41 H (14-36) U/L ALT 40 H (4-34) U/L Alkaline Phosphatase 220 H (38-126) U/L Total Protein 6.0 L (6.3-8.2) g/dL Albumin 3.1 L (3.5-5.0) g/dL Assessment and Plan Plan: Assessment: 1. Chronic kidney disease stage IIIB with baseline creatinine in the range of 1.3-1.5 secondary to nephrosclerosis. GFR at baseline. 2. Enterococcus UTI. On antibiotics. 3. History of gastric ulcer status post gastrectomy with history of aspirations. 4. Chronic kidney disease mineral bone disease maintained on calcitriol. 5. Hyponatremia secondary to hypotonic fluid infusion. Improved. 6. Metabolic acidosis secondary to acute kidney injury and IV fluids. On oral bicarb. Plan: No changes from nephrology standpoint. Follow-up outpatient in 1-2 weeks.
--- NOTE | 2021-08-19 12:40 | P.PN ---
Subjective Progress Note Date: 08/19/21 Principal diagnosis: Malnutrition, UTI The patient is a 76 year old female with an extensive past medical history including, gastric ulcers s/p gastrectomy, recurrent aspiration pneumonia, malnutrition, recurrent PICC line infectins, sepsis, COPD, CVA, GERD, OA, CRF, hypothyroidism, and spinal stenosis. She presented to the on 08/09/21 stating that she was on parenteral nutrition up to 2 weeks ago. She states her guardian placed her on Hospice and took out her PICC line. The patient states she does not want to be in hospice. Patient was sent here by her primary care physician for PICC placement and TPN. Patient has had weight loss. Patient states she is able to eat tiny amount of food, but has unable to tolerate it. She c/o nausea and vomiting when she attempts to eat for the past 2 weeks. 08/09 - Education provided to patient regarding her multiple health conditions. The patient states she wants to live and never wanted to be put on Hospice. She stated her gaurdian put her on hospice without her knowledge or consent. Her goal is prolonged survival despite many hospital readmissions. Information regarding palliative care given to patient. 08/12 The patient is anxious today. She states she is confused on plan of care. She is upset because she has not gotten a PICC line placed or started TPN It was explained that Dr. Laguerre spoke with the case aide and expressed that TPN was not being given in a safe manner. She also was concerned that the patient was not following up despite trying to contact the patient multiple times so she will not sign for TPN again. It was explained that the decision to re-start TPN will be up to her attending. 08/13 Palliative care POTATO CHIP FRYER, case aide, and RN met with the patient today. She was very anxious, emotional, and tearful. She was informed that legally, Rosario, will remain her guardian until her sister is able to go to court and take over. Dr. Desir has agreed to start the patient on TPN, and PICC line placement is pending. The concern is the patient will not give herself the TPN or follow up with the physician again. The patient stated she had pneumonia last time, and promised this would not happen again. She states she is educated on how to administer it properly, and has a support person, Jonn, who lives nearby. 08/14 Patient less anxious today and not as emotional. PICC line placement was attempted in the right upper extremity basilic vein. However, it was aborted yesterday due to thrombus by IR. Per vascular surgery- Dr. Carter cleared patient to have PICC line placed in the left upper extremity. If there is difficulty with placement, they will consider possible tunneled catheter for TPN if indicated. 08/15 The patient is in bed. She has a double lumen PICC to the right upper extremity with TPN infusing. She is mildly anxious, stating that her Wellbutrin dosage is wrong. She is taking 300mg here and takes 450mg daily at home. Dr. Desir notified, order for Wellbutrin changed. 08/16 The patient is in bed. She has a double lumen PICC to the right upper extremity with TPN infusing. Encouraged oral intake and to increase activity. Objective - Vital Signs Vital signs: Vital Signs Temp 98.4 F 08/19/21 11:39 Pulse 95 08/19/21 11:39 Resp 16 08/19/21 11:39 BP 139/80 08/19/21 11:39 Pulse Ox 97 08/19/21 11:39 Intake & Output 08/18/21 08/19/21 08/19/21 18:59 06:59 18:59 Intake Total 600 600 Balance 600 600 Intake: Intake, IV Titration 600 Amount Mvi, Adult No.4 with Vit 600 K 10 ml Trace (Conc-1Ml/ Dose) 1 ml In Amino Acid 5%-D20w+Lytes*E* 1,000 ml @ 50 mls/hr IV .BY DURATION CHAD Rx#: [id number] Oral 600 Other: Voiding Method Toilet # Voids 4 # Bowel Movements 1 - Exam General: Patient awake alert and oriented x 3. No acute distress. HEENT: Head is atraumatic, normocephalic Neck is supple. Sclerae are clear. P upils equal, round and reactive to light bilaterally. CV: Heart regular in rate and rhythm positive S1 and S2. No S3. No S4. No clicks, rubs or murmurs. No JVD. Peripheral pulses equal. 2/4 Lungs: CTA No wheezes rales or rhonchi. Respirations even and nonlabored. No intercostal retractions.on RA. Abdomen/GI: Soft. Bowel sounds present in all 4 quadrants. Bowel sounds normoactive. No abdominal tenderness. Musculoskeletal/ Extremities: No tenderness on muscular exam. No ecchymosis. Vascular: Radial pulses equal. 2/4. Skin: No rash. Neurologic: Awake, alert and oriented times 3. Psychiatric: Anxious, less emotional - Labs CBC & Chem 7: 08/19/21 05:22 08/19/21 05:22 Labs: Abnormal Lab Results - Last 24 Hours (Table) 08/19/21 08/19/21 Range/Units 05: 05:22 WBC 11.13 H (4.50-10.00) X 10*3/uL RBC 3.20 L (4.10-5.20) X 10*6/uL Hgb 8.9 L (12.0-15.0) g/dL Hct 29.2 L (37.2-46.3) % MCHC 30.5 L (32.0-37.0) g/dL RDW 16.9 H (11.5-14.5) % Plt Count 490 H (140-440) X 10*3/uL Immature Gran # 0.09 H (0.00-0.04) X 10*3/uL Neutrophils # 7.97 H (1.80-7.70) X 10*3/uL Monocytes # 1.24 H (0.20-1.00) X 10*3/uL Eosinophils # 0.40 H (0.04-0.35) X 10*3/uL Sodium 136 L (137-145) mmol/L BUN 59 H (7-17) mg/dL Creatinine 1.39 H (0.52-1.04) mg/dL Glucose 114 H (74-99) mg/dL AST 41 H (14-36) U/L ALT 40 H (4-34) U/L Alkaline Phosphatase 220 H (38-126) U/L Total Protein 6.0 L (6.3-8.2) g/dL Albumin 3.1 L (3.5-5.0) g/dL Assessment and Plan Plan: Plan: Symptoms * Pain - Patient has chronic back and neck pain and migraines. She takes Methadone, Dilaudid, and Fioricet at home. She does have those available here at the hospital with the addition of Tylenol. She stated her pain is well controlled with this regimen. There is also PRN Narcan orderd. * Energy level/Fatigue - Lately she has been feeling weak and fatigued. She believes this is due to malnutrition and will improve with TPN * SOB - denies, Continue Symbicort and Albuterol neb * Insomnia - Takes Remeron at home and has been continued here, sleeping well * N/V - Whenever the patient tried to eat she is nauseated and occasionally vomits. She is currently on a pureed diet d/t dysphagia. Continue Zofran PRN * Anxiety/Depression - Wellbutrin 450,g and Buspar continued. * Confusion/Agitation - none * Appetite/dysphagia/weight loss - Patient reports a good appetite, but states she is unable to eat. She has a history of dysphagia and recurrent aspiration pneumonia. Encourage PO intake * Constipation - Chronic constipation due to narcotic use - Home Miralax ordered. * Incontinence - none * Itch - occasional, Continue Vistaril * Hallucinations - none Plan/Goals: The patient has a double lumen PICC to the right upper extremity with TPN infusing. She was encouraged to increase her oral intake and activity. She has a visitor and is in good spirits today. Patient's sister, Kamilah, called to discuss discharge plans. She stated the patient has major depression and was not on the correct dosage of Wellbutrin [employer]. Kamilah would like to try and let Louise live as independently as possible. Now that she is on the correct dosage of Wellbutrin (450mg daily) and her depression will be better controlled, Kamilah believes Louise will be able to care for herself. She stated she would be able to teach her how to administer her TPN correctly. If the patient does not do well by herself, she would then be open to putting Louise in a assisted living facility closer to her. She was reminded that she does not have guardianship over the patient yet. Until the court awards her guardianship, Rosario, her current guardian will have to make her decisions. She was encouraged to discuss her concerns with the case aide as well. Code Status - the patient wishes to remain a DNR Yamini Corado [facility] Palliative Care [facility] [place] [id number] Email: [email or web address] Time with Patient: Less than 30
[2021-08-19] MEDS: CALCIUM GLUCONATE IV SCH ×6 (17:07)
[2021-08-19] MEDS: SODIUM ACETATE IV SCH ×6 (17:07)
[2021-08-19] MEDS: [UNRECOGNIZED DRUG - OTHER] IV SCH ×6 (17:07)
[2021-08-19] MEDS: MAGNESIUM SULFATE IV SCH ×6 (17:07)
[2021-08-19] MEDS: MIRTAZAPINE 45 MG TABLET PO SCH (20:47)
[2021-08-20] MEDS: METHADONE 5 MG TAB PO SCH ×4 (04:04→21:58)
[2021-08-20] MEDS: BUTALB/APAP/CAFF 50-325-40MG TAB PO SCH ×4 (04:04→21:58)
[2021-08-20] MEDS: LEVOTHYROXINE 100 MCG TAB PO SCH (04:04)
[2021-08-20] MEDS: HYDROmorphone 2 MG TAB PO PRN ×3 (05:41→17:48)
[2021-08-20] MEDS: hydrOXYzine pamoate 25 MG CAP PO PRN ×3 (05:42→21:58)
[2021-08-20] MEDS: ONDANSETRON 4 MG/2 ML VIAL IVP PRN ×2 (05:42→20:13)
[2021-08-20] MEDS: SYMBICORT 160-4.5 MCG INHALER INHALATION SCH ×2 (07:23→19:37)
[2021-08-20] MEDS: PANTOPRAZOLE 40 MG TABLET PO SCH (08:57)
[2021-08-20] MEDS: ASPIRIN 81 MG PO SCH (08:57)
[2021-08-20 08:58] LABS: African American GFR (CKD) 45 (>60 ml/min/1.73 sqM); Anion Gap 11 mmol/L; Blood Urea Nitrogen 60 mg/dL (7-17); Calcium 9.2 mg/dL (8.4-10.2); Carbon Dioxide 24 mmol/L (22-30); Chloride 102 mmol/L (98-107); Glucose 107 mg/dL (74-99); Magnesium 2.2 mg/dL (1.6-2.3); Non-African American GFR(CKD) 39 (>60 ml/min/1.73 sqM); Phosphorus 3.8 mg/dL (2.5-4.5); Sodium 137 mmol/L (137-145)
[2021-08-20] MEDS: buPROPion XL 300 MG TAB.ER.24H PO SCH (08:58)
[2021-08-20] MEDS: buPROPion XL 150 MG TAB.ER.24H PO SCH (08:58)
[2021-08-20] MEDS: busPIRone HCl 10 MG TAB PO SCH ×2 (08:58→20:49)
[2021-08-20] MEDS: SODIUM BICARBONATE TAB 650 MG TAB PO SCH (08:58)
[2021-08-20] MEDS: HEPARIN SODIUM,PORCINE/PF 5,000 UNIT/0.5 ML SYRINGE SQ SCH ×2 (08:59→20:49)
--- NOTE | 2021-08-20 10:00 | P.PN ---
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 Patient states that she has a legal guardian and was placed on hospice care at a facility and PICC line was taken out. Patient states that she does not want to be in the hospice and contacted primary care physician who recommended to go to ER. Patient does have very minimal oral intake and is cachectic. Complains of nausea and vomiting when she attempts to eat for the past 2 weeks. Patient's TPN was maintained through [facility] physician phone #[phone]. Patient is otherwise denied any complaints of chest pain or shortness of breath. No fever no chills. No dysuria or hematuria. No headache or dizziness or lightheadedness. Laboratory data showed WBC 11.3 hemoglobin 12.5 platelets 420 sodium 143 chloride 105 BUN 20 and creatinine 1.57 Albumin 4.5 AST 43 ALT 402 Urinalysis showed cloudy with 1+ protein moderate leukocytes trace WBC 16 and epithelial cells 11. Occasional bacteria. Blood pressure was elevated on admission 171/85 pulse 120 respiration 18 and pulse ox 95% on room air. On 08/12/2021 patient was seen and examined on the medical floor, at this time I am assuming care of Mrs. Sutton, she was under the care of Dr. Brooke, who was covering for me during my absence last week. Today patient is alert and oriented 3 in no apparent distress, she is very emotional and states that she does not want to , since the last hospitalization, patient was started on hospice care, she has a court-appointed power of deputy attorney general, and her TPN has been discontinued, and the PICC line has been removed. Patient is very upset about all this, she is stating that her sister is going to court to try to change guardianship. Patient is stating that she does not want hospice, she wants to be restarted on TPN. Her previous records were reviewed in detail, patient was started on TPN years ago for 2 reasons, first patient was unable to meet her caloric needs via oral intake, and second patient was having recurrent aspiration pneumonia, she is maintained on pured diet, with special precautions while swallowing. At this time patient has evidence of urinary tract infection she had a urine analysis on 08/08/2021 that was positive and a urine culture that was finalized yesterday and was positive for Enterococcus faecalis that is resistant to penicillin, patient is not able to tolerate vancomycin due to recurrent episode of acute kidney failure. She will be started on IV daptomycin, infectious disease consultation is being requested. Today patient has a temperature of 99.6 pulse 90 respiration 16 blood pressure 145/79 and pulse ox of 97% on room air her white blood count is 10.9 hemoglobin 11.6 platelet count 361 sodium 134 potassium 4.3 chloride 105 CO2 22 BUN 21 creatinine 1.2 glucose 100. Patient is complaining of severe anxiety and Xanax will be added to her regimen today, at this time per her request we will proceed with PICC line placement and restarting TPN On 08/13/2021 patient is alert and oriented 3. Vascular surgery has been consulted for possible PICC line placement in order to initiate TPN. Social work services are following. At this time patient denies chest pain or shortness breath. Patient denies nausea vomiting or diarrhea. Patient denies any urinary burning or frequency. Nephrology services and infectious disease services are following On 08/14/2021 patient is alert and oriented 3 area and vascular surgery has been consulted for line placement with initiation of TPN. Creatinine 1.2, bun 20.2. White blood cell 11.06. Repeat labs will be ordered for a.m. At this ti ms patient denies chest pain or shortness breath. Patient denies nausea vomiting or diarrhea. Patient denies any urinary burning or frequency. On 08/15/2021 patient was seen and examined on the medical floor she is alert and oriented 3 in no apparent distress, there is no fever or chills no headache or dizziness no chest pain or shortness of breath no cough no nausea or vomiting no diarrhea no blood in the stools no burning with urination no frequency or urgency no hematuria PICC line was placed and patient was started on TPN, she is still maintained on IV daptomycin and infectious disease are following, she is complaining of abdominal pain when eating, otherwise she denies any complaints at this time On 08/16/2021 patient was seen and examined on the medical floor she is alert and oriented 3 in no apparent distress, PICC line was placed and patient was started on TPN, she is still maintained on IV daptomycin and infectious disease are following, she is complaining of abdominal pain when eating, otherwise she denies any complaints at this time. On 08/17/2021 patient was seen and examined on the medical floor she is alert and oriented 3 in no apparent distress, she is complaining of generalized pain otherwise she denies any complaints at this time, vital examination reveals a temperature of 98.3 pulse 88 respiration 18 blood pressure 111/66 pulse ox 97% on room air, laboratory data reveals a white blood count of 10.9 hemoglobin 9.2 platelet count 410 BUN 48 creatinine 1.32 On 08/18/2021 patient is alert and oriented 3 resting comfortably in bed. Patient complains of generalized pain. Patient remains on TPN through a PICC line. Per ID patient to continue daptomycin while inpatient but can be discontinued upon discharge. Current vitals temp 97.8, heart rate 95, respiratory rate 20, blood pressure 135/72 with a pulse ox of 95% on room air. On 08/19/2021 patient was seen and examined on the medical floor she is alert and oriented 3 in no apparent distress, she denies any symptoms at this time there is no fever or chills no headache or dizziness no chest pain no shortness of breath no cough no nausea or vomiting no abdominal pain no diarrhea and no u rinary symptoms. Patient is receiving TPN. I spoke with Dr. Salas, over the phone, she was prescribing her TPN for the last several months, she has significant concern in regard to patient continuing to use TPN at home, due to recurrent infections, and is recommending that patient goes to an extended care facility, at this time patient wants to return home and is refusing to go to an assisted living, case management and psychiatric social worker supervisor are involved for discharge planning. Objective - Vital Signs Vital signs: Vital Signs Temp 98.2 F 08/19/21 04:17 Pulse 95 08/19/21 04:17 Resp 16 08/19/21 04:17 BP 147/83 08/19/21 04:17 Pulse Ox 97 08/19/21 04:17 Intake & Output 08/18/21 08/19/21 08/19/21 18:59 06:59 18:59 Intake Total 600 600 Balance 600 600 Intake: Intake, IV Titration 600 Amount Mvi, Adult No.4 with Vit 600 K 10 ml Trace (Conc-1Ml/ Dose) 1 ml In Amino Acid 5%-D20w+Lytes*E* 1,000 ml @ 50 mls/hr IV .BY DURATION CHAD Rx#: [id number] Oral 600 Other: Voiding Method Toilet # Voids 4 # Bowel Movements 1 - Exam In general patient is alert and oriented x 3 in no distress HEENT head normocephalic and atraumatic Neck is supple no JVD no goiter no lymphadenopathy no carotid bruit Chest examination reveals a scattered crackles bilaterally no wheezing Cardiac exam reveals regular heart sounds S1 and S2 no gallops no murmurs Abdomen is soft nontender no organomegaly with normal bowel sounds Extremity exam reveals no edema no cyanosis or clubbing Neurological examination reveals no gross focal deficits - Labs CBC & Chem 7: 08/19/21 05:22 08/20/21 07:43 Labs: Abnormal Lab Results - Last 24 Hours (Table) 08/19/21 08/19/21 Range/Units 05:22 05:22 WBC 11.13 H (4.50-10.00) X 10*3/uL RBC 3.20 L (4.10-5.20) X 10*6/uL Hgb 8.9 L (12.0-15.0) g/dL Hct 29.2 L (37.2-46.3) % MCHC 30.5 L (32.0-37.0) g/dL RDW 16.9 H (11.5-14.5) % Plt Count 490 H (140-440) X 10*3/uL Immature Gran # 0.09 H (0.00-0.04) X 10*3/uL Neutrophils # 7.97 H (1.80-7.70) X 10*3/uL Monocytes # 1.24 H (0.20-1.00) X 10*3/uL Eosinophils # 0.40 H (0.04-0.35) X 10*3/uL Sodium 136 L (137-145) mmol/L BUN 59 H (7-17) mg/dL Creatinine 1.39 H (0.52-1.04) mg/dL Glucose 114 H (74-99) mg/dL AST 41 H (14-36) U/L ALT 40 H (4-34) U/L Alkaline Phosphatase 220 H (38-126) U/L Total Protein 6.0 L (6.3-8.2) g/dL Albumin 3.1 L (3.5-5.0) g/dL Assessment and Plan Plan: Malnutrition and failure to thrive Acute on chronic kidney disease stage III Recurrent episodes of aspiration pneumonia in the past History of gastric ulcers status post gastrectomy Previous history of CVA Previous history of recurrent PICC line infections and sepsis Underlying history of hypothyroidism Underlying history of migraine headache Underlying history of spinal stenosis and chronic back pain Anemia cause is unclear, will check stool Hemoccult to assess evidence of gas trointestinal bleeding, will check iron levels vitamin B12 level and folate level A tract infection due to enterococcus. Infectious disease services are following patient may complete a short course of daptomycin while inpatient but this can be discontinued upon discharge per ID recommendation At this time medication and labs were reviewed Maintained on IV daptomycin Nephrology and infectious disease services following Will add Xanax when necessary Continue with current medications otherwise PICC line placement and restarting TPN per patient request Will follow in a.m.
--- NOTE | 2021-08-20 11:17 | P.PN ---
Subjective Progress Note Date: 08/20/21 Principal diagnosis: Malnutrition, UTI The patient is a 76 year old female with an extensive past medical history including, gastric ulcers s/p gastrectomy, recurrent aspiration pneumonia, malnutrition, recurrent PICC line infectins, sepsis, COPD, CVA, GERD, OA, CRF, hypothyroidism, and spinal stenosis. She presented to the on 08/09/21 stating that she was on parenteral nutrition up to 2 weeks ago. She states her guardian placed her on Hospice and took out her PICC line. The patient states she does not want to be in hospice. Patient was sent here by her primary care physician for PICC placement and TPN. Patient has had weight loss. Patient states she is able to eat tiny amount of food, but has unable to tolerate it. She c/o nausea and vomiting when she attempts to eat for the past 2 weeks. 08/09 - Education provided to patient regarding her multiple health conditions. The patient states she wants to live and never wanted to be put on Hospice. She stated her gaurdian put her on hospice without her knowledge or consent. Her goal is prolonged survival despite many hospital readmissions. Information regarding palliative care given to patient. 08/12 The patient is anxious today. She states she is confused on plan of care. She is upset because she has not gotten a PICC line placed or started TPN It was explained that Dr. Laguerre spoke with the case mgr and expressed that TPN was not being given in a safe manner. She also was concerned that the patient was not following up despite trying to contact the patient multiple times so she will not sign for TPN again. It was explained that the decision to re-start TPN will be up to her attending. 08/13 Palliative care DAY CARE WORKER, case mgr, and RN met with the patient today. She was very anxious, emotional, and tearful. She was informed that legally, Rosario, will remain her guardian until her sister is able to go to court and take over. Dr. Desir has agreed to start the patient on TPN, and PICC line placement is pending. The concern is the patient will not give herself the TPN or follow up with the physician again. The patient stated she had pneumonia last time, and promised this would not happen again. She states she is educated on how to administer it properly, and has a support person, Jonn, who lives nearby. 08/14 Patient less anxious today and not as emotional. PICC line placement was attempted in the right upper extremity basilic vein. However, it was aborted yesterday due to thrombus by IR. Per vascular surgery- Dr. Carter cleared patient to have PICC line placed in the left upper extremity. If there is difficulty with placement, they will consider possible tunneled catheter for TPN if indicated. 08/15 The patient is in bed. She has a double lumen PICC to the right upper extremity with TPN infusing. She is mildly anxious, stating that her Wellbutrin dosage is wrong. She is taking 300mg here and takes 450mg daily at home. Dr. Desir notified, order for Wellbutrin changed. 08/16 The patient is in bed. She has a double lumen PICC to the right upper extremity with TPN infusing. Encouraged oral intake and to increase activity. 08/19 The patient has a double lumen PICC to the right upper extremity with TPN infusing. She was encouraged to increase her oral intake and activity. She has a visitor and is in good spirits today. Patient's sister, Kamilah, called to discuss discharge plans. She stated the patient has major depression and was not on the correct dosage of Wellbutrin [employer]IGH [employer]CHO[employer]ACH. Kamilah would like to try and let Louise live as independently as possible. Now that she is on the correct dosage of Wellbutrin (450mg daily) and her depression will be better controlled, Kamilah believes Louise will be able to care for herself. She stated she would be able to teach her how to administer her TPN correctly. If the patient does not do well by herself, she would then be open to putting Louise in a assisted living facility closer to her. She was reminded that she does not have guardianship over the patient yet. Until the court awards her guardianship, Rosario, her current guardian will have to make her decisions. She was encouraged to discuss her concerns with the case mgr as well. Objective - Vital Signs Vital signs: Vital Signs Temp 97.5 F L 08/20/21 04:16 Pulse 93 08/20/21 04:16 Resp 18 08/20/21 04:16 BP 152/82 08/20/21 04:16 Pulse Ox 97 08/20/21 04:16 Intake & Output 08/19/21 08/20/21 08/20/21 18:59 06:59 18:59 Intake Total 600 760 Balance 600 760 Weight 38.102 kg Intake: Intake, IV Titration 600 400 Amount Mvi, Adult No.4 with Vit 400 K 10 ml Trace (Conc-1Ml/ Dose) 1 ml Sodium Acetate 40 meq Magnesium Sulfate gm 0.5 gm Calcium Gluconate 1 gm In Amino Acids 5 %/Dextrose 20 % 1 ,000 ml @ 50 mls/hr IV . BY [facility] Rx#: [id number] Sodium Acetate 60 meq 600 Magnesium Sulfate gm 0.5 gm Calcium Gluconate 1 gm In Amino Acids 5 %/ Dextrose 20 % 1,000 ml @ 50 mls/hr IV .BY [facility] Rx#:[id number] Oral 360 Other: Voiding Method Toilet # Voids 5 1 - Exam General: Patient awake alert and oriented x 3. No acute distress. HEENT: Head is atraumatic, normocephalic Neck is supple. Sclerae are clear. Pupils equal, round and reactive to light bilaterally. CV: Heart regular in rate and rhythm positive S1 and S2. No S3. No S4. No clicks, rubs or murmurs. No JVD. Peripheral pulses equal. 2/4 Lungs: CTA No wheezes rales or rhonchi. Respirations even and nonlabored. No intercostal retractions.on RA. Abdomen/GI: Soft. Bowel sounds present in all 4 quadrants. Bowel sounds normoactive. No abdominal tenderness. Musculoskeletal/ Extremities: No tenderness on muscular exam. No ecchymosis. Vascular: Radial pulses equal. 2/4. Skin: No rash. Neurologic: Awake, alert and oriented times 3. Psychiatric: Appropriate mood and affect - Labs CBC & Chem 7: 08/19/21 05:22 08/20/21 07:43 Labs: Abnormal Lab Results - Last 24 Hours (Table) 08/20/21 Range/Units 07:43 BUN 60 H (7-17) mg/dL Creatinine 1.35 H (0.52-1.04) mg/dL Glucose 107 H (74-99) mg/dL Assessment and Plan Plan: Symptoms * Pain - Patient has chronic back and neck pain and migraines. She takes Methado ne, Dilaudid, and Fioricet at home. She does have those available here at the hospital with the addition of Tylenol. She stated her pain is well controlled with this regimen. There is also PRN Narcan orderd. * Energy level/Fatigue - Lately she has been feeling weak and fatigued. She believes this is due to malnutrition and will improve with TPN. She states her energy level i starting to improve. * SOB - denies, Continue Symbicort and Albuterol neb * Insomnia - Takes Remeron at home and has been continued here, sleeping well * N/V - Denies, She is currently on a pureed diet d/t dysphagia. Continue Zofran PRN * Anxiety/Depression - Wellbutrin 450mg, Vistaril, and Buspar continued. * Confusion/Agitation - none * Appetite/dysphagia/weight loss -Encourage PO intake and continue TPN * Constipation - Chronic constipation due to narcotic use - Home Miralax ordered. * Incontinence - none * Itch - occasional, Continue Vistaril * Hallucinations - none Plan/Goals: The plan is to discharge the patient home with home visiting nurse and outpatient palliative care once case management is able to fine an infusion [facility] that accepts her insurance. The patient's sister, Kamilah, would still like to try and let Louise live as independently as possible. If the patient does not do well by herself, she would then be open to putting Louise in a assisted living facility closer to her. Code Status - the patient wishes to remain a DNR Yamini Corado [facility] Palliative Care [place]ink [id number] Email: [email or web address] Time with Patient: Less than 30
[2021-08-20] MEDS: MAGNESIUM SULFATE IV SCH ×6 (16:42)
[2021-08-20] MEDS: SODIUM ACETATE IV SCH ×6 (16:42)
[2021-08-20] MEDS: [UNRECOGNIZED DRUG - OTHER] IV SCH ×6 (16:42)
[2021-08-20] MEDS: CALCIUM GLUCONATE IV SCH ×6 (16:42)
--- NOTE | 2021-08-20 19:07 | P.PN ---
Subjective Progress Note Date: 08/20/21 Patient is a 76-year-old female with a known history of gastric ulcers status post gastrectomy, recurrent aspiration pneumonia, patient was on TPN with PICC blue line operator through [facility] until 2 weeks ago, recommend PICC line infections, sepsis, COPD/asthma, history of CVA, osteoarthritis, CKD stage IV, chronic back pain, cervical pain/spinal stenosis, hypothyroidism, memory impairment, anxiety/depression panic disorder and other multiple medical problems presented by her primary care physician for PICC line placement and TPN. Patient states that she has a legal guardian and was placed on hospice care at a facility and PICC line was taken out. Patient states that she does not want to be in the hospice and contacted primary care physician who recommended to go to ER. Patient does have very minimal oral intake and is cachectic. Complains of nausea and vomiting when she attempts to eat for the past 2 weeks. Patient's TPN was maintained through [facility] physician phone #[phone]. Patient is otherwise denied any complaints of chest pain or shortness of breath. No fever no chills. No dysuria or hematuria. No headache or dizziness or lightheadedness. Laboratory data showed WBC 11.3 hemoglobin 12.5 platelets 420 sodium 143 chloride 105 BUN 20 and creatinine 1.57 Albumin 4.5 AST 43 ALT 402 Urinalysis showed cloudy with 1+ protein moderate leukocytes trace WBC 16 and epithelial cells 11. Occasional bacteria. Blood pressure was elevated on admission 171/85 pulse 120 respiration 18 and pulse ox 95% on room air. On 08/12/2021 patient was seen and examined on the medical floor, at this time I am assuming care of Mrs. Sutton, she was under the care of Dr. Brooke, who was covering for me during my absence last week. Today patient is alert and oriented 3 in no apparent distress, she is very emotional and states that she does not want to , since the last hospitalization, patient was started on hospice care, she has a court-appointed power of commercial real estate attorney, and her TPN has been discontinued, and the PICC line has been removed. Patient is very upset about all this, she is stating that her sister is going to court to try to change guardianship. Patient is stating that she does not want hospice, she wants to be restarted on TPN. Her previous records were reviewed in detail, patient was started on TPN years ago for 2 reasons, first patient was unable to meet her caloric needs via oral intake, and second patient was having recurrent aspiration pneumonia, she is maintained on pured diet, with special precautions while swallowing. At this time patient has evidence of urinary tract infection she had a urine analysis on 08/08/2021 that was positive and a urine culture that was finalized yesterday and was positive for Enterococcus faecalis that is resistant to penicillin, patient is not able to tolerate vancomycin due to recurrent episode of acute kidney failure. She will be started on IV daptomycin, infectious disease consultation is being requested. Today patient has a temperature of 99.6 pulse 90 respiration 16 blood pressure 145/79 and pulse ox of 97% on room air her white blood count is 10.9 hemoglobin 11.6 platelet count 361 sodium 134 potassium 4.3 chloride 105 CO2 22 BUN 21 creatinine 1.2 glucose 100. Patient is complaining of severe anxiety and Xanax will be added to her regimen today, at this time per her request we will proceed with PICC line placement and restarting TPN On 08/13/2021 patient is alert and oriented 3. Vascular surgery has been consulted for possible PICC line placement in order to initiate TPN. Social work services are following. At this time patient denies chest pain or shortness breath. Patient denies nausea vomiting or diarrhea. Patient denies any urinary burning or frequency. Nephrology services and infectious disease services are following On 08/14/2021 patient is alert and oriented 3 area and vascular surgery has been consulted for line placement with initiation of TPN. Creatinine 1.2, bun 20.2. White blood cell 11.06. Repeat labs will be ordered for a.m. At this ti la patient denies chest pain or shortness breath. Patient denies nausea vomiting or diarrhea. Patient denies any urinary burning or frequency. On 08/15/2021 patient was seen and examined on the medical floor she is alert and oriented 3 in no apparent distress, there is no fever or chills no headache or dizziness no chest pain or shortness of breath no cough no nausea or vomiting no diarrhea no blood in the stools no burning with urination no frequency or urgency no hematuria PICC line was placed and patient was started on TPN, she is still maintained on IV daptomycin and infectious disease are following, she is complaining of abdominal pain when eating, otherwise she denies any complaints at this time On 08/16/2021 patient was seen and examined on the medical floor she is alert and oriented 3 in no apparent distress, PICC line was placed and patient was started on TPN, she is still maintained on IV daptomycin and infectious disease are following, she is complaining of abdominal pain when eating, otherwise she denies any complaints at this time. On 08/17/2021 patient was seen and examined on the medical floor she is alert and oriented 3 in no apparent distress, she is complaining of generalized pain otherwise she denies any complaints at this time, vital examination reveals a temperature of 98.3 pulse 88 respiration 18 blood pressure 111/66 pulse ox 97% on room air, laboratory data reveals a white blood count of 10.9 hemoglobin 9.2 platelet count 410 BUN 48 creatinine 1.32 On 08/18/2021 patient is alert and oriented 3 resting comfortably in bed. Patient complains of generalized pain. Patient remains on TPN through a PICC line. Per ID patient to continue daptomycin while inpatient but can be discontinued upon discharge. Current vitals temp 97.8, heart rate 95, respiratory rate 20, blood pressure 135/72 with a pulse ox of 95% on room air. On 08/19/2021 patient was seen and examined on the medical floor she is alert and oriented 3 in no apparent distress, she denies any symptoms at this time there is no fever or chills no headache or dizziness no chest pain no shortness of breath no cough no nausea or vomiting no abdominal pain no diarrhea and no u rinary symptoms. Patient is receiving TPN. I spoke with Dr. Salas, over the phone, she was prescribing her TPN for the last several months, she has significant concern in regard to patient continuing to use TPN at home, due to recurrent infections, and is recommending that patient goes to an extended care facility, at this time patient wants to return home and is refusing to go to an assisted living, case management and social service liaison are involved for discharge planning. On 08/20/2021 patient was seen and examined on the medical floor she is alert and oriented 3 in no apparent distress there is no fever or chills no headache or dizziness no chest pain no shortness of breath no cough no nausea or vomiting no abdominal pain no diarrhea and no urinary symptoms patient is maintained on TPN and is tolerating well at this time social service liaison and case finisher are working on planning discharge, possible discharge to home tomorrow Objective - Vital Signs Vital signs: Vital Signs Temp 98.3 F 08/20/21 11:30 Pulse 96 08/20/21 11:30 Resp 18 08/20/21 11:30 BP 135/78 08/20/21 11:30 Pulse Ox 97 08/20/21 11:30 Intake & Output 08/19/21 08/20/21 08/20/21 18:59 06:59 18:59 Intake Total 600 760 Balance 600 760 Weight 38.102 kg Intake: Intake, IV Titration 600 400 Amount Mvi, Adult No.4 with Vit 400 K 10 ml Trace (Conc-1Ml/ Dose) 1 ml Sodium Acetate 40 meq Magnesium Sulfate gm 0.5 gm Calcium Gluconate 1 gm In Amino Acids 5 %/Dextrose 20 % 1 ,000 ml @ 50 mls/hr IV . BY [facility] Rx#: [id number] Sodium Acetate 60 meq 600 Magnesium Sulfate gm 0.5 gm Calcium Gluconate 1 gm In Amino Acids 5 %/ Dextrose 20 % 1,000 ml @ 50 mls/hr IV .BY D[facility]ATION [facility] Rx#:[id number] Oral 360 Other: Voiding Method Toilet Toilet # Voids 5 1 - Exam In general patient is alert and oriented x 3 in no distress HEENT head normocephalic and atraumatic Neck is supple no JVD no goiter no lymphadenopathy no carotid bruit Chest examination reveals a scattered crackles bilaterally no wheezing Cardiac exam reveals regular heart sounds S1 and S2 no gallops no murmurs Abdomen is soft nontender no organomegaly with normal bowel sounds Extremity exam reveals no edema no cyanosis or clubbing Neurological examination reveals no gross focal deficits - Labs CBC & Chem 7: 08/19/21 05:22 08/20/21 07:43 Labs: Abnormal Lab Results - Last 24 Hours (Table) 08/20/21 Range/Units 07:43 BUN 60 H (7-17) mg/dL Creatinine 1.35 H (0.52-1.04) mg/dL Glucose 107 H (74-99) mg/dL Assessment and Plan Plan: Malnutrition and failure to thrive Acute on chronic kidney disease stage III Recurrent episodes of aspiration pneumonia in the past History of gastric ulcers status post gastrectomy Previous history of CVA Previous history of recurrent PICC line infections and sepsis Underlying history of hypothyroidism Underlying history of migraine headache Underlying history of spinal stenosis and chronic back pain Anemia cause is unclear, will check stool Hemoccult to assess evidence of gastrointestinal bleeding, will check iron levels vitamin B12 level and folate level A tract infection due to enterococcus. Infectious disease services are following patient may complete a short course of daptomycin while inpatient but this can be discontinued upon discharge per ID recommendation At this time medication and labs were reviewed Maintained on IV daptomycin Nephrology and infectious disease services following Will add Xanax when necessary Continue with current medications otherwise PICC line placement and restarting TPN per patient request Will follow in a.m.
[2021-08-20] MEDS: MIRTAZAPINE 45 MG TABLET PO SCH (20:49)
[2021-08-20 21:49] VITALS: RESP 16
[2021-08-21] MEDS: HYDROmorphone 2 MG TAB PO PRN ×3 (00:09→12:05)
[2021-08-21] MEDS: BUTALB/APAP/CAFF 50-325-40MG TAB PO SCH ×3 (04:04→15:58)
[2021-08-21] MEDS: METHADONE 5 MG TAB PO SCH ×3 (04:04→15:58)
[2021-08-21] MEDS: LEVOTHYROXINE 100 MCG TAB PO SCH (04:05)
[2021-08-21 04:18] VITALS: BP 129/73; PULSE 93; TEMP 98.3
[2021-08-21] MEDS: hydrOXYzine pamoate 25 MG CAP PO PRN ×2 (05:49→15:57)
[2021-08-21] MEDS: ONDANSETRON 4 MG/2 ML VIAL IVP PRN (05:50)
[2021-08-21] MEDS: PANTOPRAZOLE 40 MG TABLET PO SCH (07:43)
[2021-08-21] MEDS: SYMBICORT 160-4.5 MCG INHALER INHALATION SCH (07:57)
[2021-08-21 08:19] LABS: Ionized Calcium 5.2 mg/dL (4.5-5.3)
[2021-08-21] MEDS: buPROPion XL 300 MG TAB.ER.24H PO SCH (09:27)
[2021-08-21] MEDS: ASPIRIN 81 MG PO SCH (09:27)
[2021-08-21] MEDS: busPIRone HCl 10 MG TAB PO SCH (09:27)
[2021-08-21] MEDS: buPROPion XL 150 MG TAB.ER.24H PO SCH (09:27)
[2021-08-21] MEDS: HEPARIN SODIUM,PORCINE/PF 5,000 UNIT/0.5 ML SYRINGE SQ SCH (09:28)
[2021-08-21] MEDS: SODIUM BICARBONATE TAB 650 MG TAB PO SCH (09:28)
[2021-08-21] MEDS: FAT EMULSION 20% 250 ML in EMPTY BAG 1 BAG IV SCH (10:11)
--- NOTE | 2021-08-21 10:29 | P.DS ---
Providers Date of admission: 08/08/21 21:35 Expected date of discharge: 08/21/21 Attending physician: Palmer Desir Consults: 08/09/21 11:31 Consult to Palliative Care Urgent Consulting Provider: Yamini Corado Consult Reason/Comments: palliative care at home Do you want consulting provider notified?: Yes 08/12/21 13:58 Consult Physician Routine Consulting Provider: Abisai Carter Consult Reason/Comments: Picc line clearance( right or left arm placement?) Do you want consulting provider notified?: Yes 08/12/21 19:00 Consult Physician Routine Consulting Provider: Jas Gregorio Consult Reason/Comments: tootie Do you want consulting provider notified?: Yes Primary care physician: Ale Eli Hospital Course: Discharge diagnosis Malnutrition and failure to thrive Acute on chronic kidney disease stage III Recurrent episodes of aspiration pneumonia in the past History of gastric ulcers status post gastrectomy Previous history of CVA Previous history of recurrent PICC line infections and sepsis Underlying history of hypothyroidism Underlying history of migraine headache Underlying history of spinal stenosis and chronic back pain Anemia cause is unclear, will check stool Hemoccult to assess evidence of gastrointestinal bleeding, will check iron levels vitamin B12 level and folate level A tract infection due to enterococcus. 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 Patient states that she has a legal guardian and was placed on hospice care at a facility and PICC line was taken out. Patient states that she does not want to be in the hospice and contacted primary care physician who recom mended to go to ER. Patient does have very minimal oral intake and is cachectic. Complains of nausea and vomiting when she attempts to eat for the past 2 weeks. Patient's TPN was maintained through [facility] physician phone #[phone]. Patient is otherwise denied any complaints of chest pain or shortness of breath. No fever no chills. No dysuria or hematuria. No headache or dizziness or lightheadedness. Laboratory data showed WBC 11.3 hemoglobin 12.5 platelets 420 sodium 143 chloride 105 BUN 20 and creatinine 1.57 Albumin 4.5 AST 43 ALT 402 Urinalysis showed cloudy with 1+ protein moderate leukocytes trace WBC 16 and epithelial cells 11. Occasional bacteria. Blood pressure was elevated on admission 171/85 pulse 120 respiration 18 and pulse ox 95% on room air. On 08/12/2021 patient was seen and examined on the medical floor, at this time I am assuming care of Mrs. Sutton, she was under the care of Dr. Brooke, who was covering for me during my absence last week. Today patient is alert and oriented 3 in no apparent distress, she is very emotional and states that she does not want to , since the last hospitalization, patient was started on hospice care, she has a court-appointed power of claims attorney, and her TPN has been discontinued, and the PICC line has been removed. Patient is very upset about all this, she is stating that her sister is going to court to try to change guardianship. Patient is stating that she does not want hospice, she wants to be restarted on TPN. Her previous records were reviewed in detail, patient was started on TPN years ago for 2 reasons, first patient was unable to meet her caloric needs via oral intake, and second patient was having recurrent aspiration pneumonia, she is maintained on pured diet, with special precautions while swallowing. At this time patient has evidence of urinary tract infection she had a urine analysis on 08/08/2021 that was positive and a urine culture that was finalized yesterday and was positive for Enterococcus faecalis that is resistant to penicillin, patient is not able to tolerate vancomycin due to recurrent episode of acute kidney failure. She will be started on IV daptomycin, infectious disease consultation is being requested. Today patient has a temperature of 99.6 pulse 90 respiration 16 blood pressure 145/79 and pulse ox of 97% on room air her white blood count is 10.9 hemoglobin 11.6 platelet count 361 sodium 134 potassium 4.3 chloride 105 CO2 22 BUN 21 creatinine 1.2 glucose 100. Patient is complaining of severe anxiety and Xanax will be added to her regimen today, at this time per her request we will proceed with PICC line placement and restarting TPN On 08/13/2021 patient is alert and oriented 3. Vascular surgery has been consulted for possible PICC line placement in order to initiate TPN. Social work services are following. At this time patient denies chest pain or shortness breath. Patient denies nausea vomiting or diarrhea. Patient denies any urinary burning or frequency. Nephrology services and infectious disease services are following On 08/14/2021 patient is alert and oriented 3 area and vascular surgery has been consulted for line placement with initiation of TPN. Creatinine 1.2, bun 20.2. White blood cell 11.06. Repeat labs will be ordered for a.m. At this time patient denies chest pain or shortness breath. Patient denies nausea vomiting or diarrhea. Patient denies any urinary burning or frequency. On 08/15/2021 patient was seen and examined on the medical floor she is alert and oriented 3 in no apparent distress, there is no fever or chills no headache or dizziness no chest pain or shortness of breath no cough no nausea or vomiting no diarrhea no blood in the stools no burning with urination no frequency or urgency no hematuria PICC line was placed and patient was started on TPN, she is still maintained on IV daptomycin and infectious disease are following, she is complaining of abdominal pain when eating, otherwise she denies any complaints at this time On 08/16/2021 patient was seen and examined on the medical floor she is alert and oriented 3 in no apparent distress, PICC line was placed and patient was started on TPN, she is still maintained on IV daptomycin and infectious disease are following, she is complaining of abdominal pain when eating, otherwise she denies any complaints at this time. On 08/17/2021 patient was seen and examined on the medical floor she is alert and oriented 3 in no apparent distress, she is complaining of generalized pain otherwise she denies any complaints at this time, vital examination reveals a temperature of 98.3 pulse 88 respiration 18 blood pressure 111/66 pulse ox 97% on room air, laboratory data reveals a white blood count of 10.9 hemoglobin 9.2 platelet count 410 BUN 48 creatinine 1.32 On 08/18/2021 patient is alert and oriented 3 resting comfortably in bed. Patient complains of generalized pain. Patient remains on TPN through a PICC line. Per ID patient to continue daptomycin while inpatient but can be discontinued upon discharge. Current vitals temp 97.8, heart rate 95, respiratory rate 20, blood pressure 135/72 with a pulse ox of 95% on room air. On 08/19/2021 patient was seen and examined on the medical floor she is alert and oriented 3 in no apparent distress, she denies any symptoms at this time there is no fever or chills no headache or dizziness no chest pain no shortness of breath no cough no nausea or vomiting no abdominal pain no diarrhea and no urinary symptoms. Patient is receiving TPN. I spoke with Dr. Salas, over the phone, she was prescribing her TPN for the last several months, she has significant concern in regard to patient continuing to use TPN at home, due to recurrent infections, and is recommending that patient goes to an extended care facility, at this time patient wants to return home and is refusing to go to an assisted living, case management and family welfare social work professor are involved for discharge [facility]. On 08/20/2021 patient was seen and examined on the medical floor she is alert and oriented 3 in no apparent distress there is no fever or chills no headache or dizziness no chest pain no shortness of breath no cough no nausea or vomiting no abdominal pain no diarrhea and no urinary symptoms patient is maintained on TPN and is tolerating well at this time family welfare social work professor and case mgr are working on planning discharge, possible discharge to home tomorrow On 08/21/2021 patient is alert and oriented 3. Discussed case with case management TPN in the process of getting arranged for home. Patient is medically stable for discharge home with home health care. No need for antibiotics per ID. At this time patient denies chest pain or shortness of breath. Patient denies nausea vomiting or diarrhea. Patient denies any urinary burning or frequency Patient Condition at Discharge: Stable Plan - Discharge Summary New Discharge Prescriptions: New Sodium Bicarbonate Tab 650 mg PO DAILY 30 Days #30 tab Continue Ferrous Sulfate [Iron (65 MG Elemental)] 325 mg PO DAILY@1200 calcitrioL [Calcitriol] 1 mcg PO MOWEFR busPIRone HCL [Buspar] 30 mg PO BID Butalb/APAP/Caff 50-325-40Mg [Fioricet 50-325-40] 1 tab PO Q6H buPROPion XL [Wellbutrin XL] 150 mg PO DAILY Albuterol Sulfate [Albuterol Sulfate Hfa] 2 puff INHALATION RT-Q6H PRN PRN Reason: Shortness Of Breath polyethylene glycoL 3350 [Miralax] 17 gm PO DAILY PRN PRN Reason: Constipation Ondansetron [Zofran ODT] 4 mg PO Q6H PRN PRN Reason: Nausea hydrOXYzine pamoate [Vistaril] 100 mg PO TID Omeprazole 20 mg PO DAILY Mirtazapine [Remeron] 45 mg PO HS Methadone [Dolophine] 5 mg PO Q6H HYDROmorphone [Dilaudid] 2 mg PO Q6H PRN PRN Reason: Pain Furosemide [Lasix] 20 mg PO DAILY PRN PRN Reason: Edema buPROPion XL [Wellbutrin XL] 300 mg PO DAILY Budesonide/Formoterol Fumarate [Symbicort 160-4.5 Mcg Inhaler] 2 puff INHALATION RT-BID Aspirin EC [Ecotrin Low Dose] 81 mg PO DAILY Levothyroxine Sodium [Synthroid] 100 mcg PO DAILY@0630 30 Days #30 tab Discontinued Potassium Chloride ER [K-Dur 10] 30 meq PO DAILY@1200 Discharge Medication List Ferrous Sulfate [Iron (65 MG Elemental)] 325 mg PO DAILY@1200 11/06/15 [History] calcitrioL [Calcitriol] 1 mcg PO MOWEFR 06/07/19 [History] busPIRone HCL [Buspar] 30 mg PO BID 04/14/20 [History] Butalb/APAP/Caff 50-325-40Mg [Fioricet 50-325-40] 1 tab PO Q6H 06/30/20 [History] buPROPion XL [Wellbutrin XL] 150 mg PO DAILY 11/04/20 [History] buPROPion XL [Wellbutrin XL] 300 mg PO DAILY 02/20/21 [History] Albuterol Sulfate [Albuterol Sulfate Hfa] 2 puff INHALATION RT-Q6H PRN 04/07/21 [History] Budesonide/Formoterol Fumarate [Symbicort 160-4.5 Mcg Inhaler] 2 puff INHALATION RT-BID 04/07/21 [History] Aspirin EC [Ecotrin Low Dose] 81 mg PO DAILY 05/12/21 [History] Levothyroxine Sodium [Synthroid] 100 mcg PO DAILY@0630 30 Days #30 tab 06/19/21 [Rx] Furosemide [Lasix] 20 mg PO DAILY PRN 08/08/21 [History] HYDROmorphone [Dilaudid] 2 mg PO Q6H PRN 08/08/21 [History] Methadone [Dolophine] 5 mg PO Q6H 08/08/21 [History] Mirtazapine [Remeron] 45 mg PO HS 08/08/21 [History] Omeprazole 20 mg PO DAILY 08/08/21 [History] Ondansetron [Zofran ODT] 4 mg PO Q6H PRN 08/08/21 [History] hydrOXYzine pamoate [Vistaril] 100 mg PO TID 08/08/21 [History] polyethylene glycoL 3350 [Miralax] 17 gm PO DAILY PRN 08/08/21 [History] Sodium Bicarbonate Tab 650 mg PO DAILY 30 Days #30 tab 08/21/21 [Rx] Follow up Appointment(s)/Referral(s): Ale Eli MD [Primary Care Provider] - 1-2 days Discharge Disposition: HOME WITH HOME HEALTH SERVICES
--- NOTE | 2021-08-21 10:41 | P.PN ---
Subjective Progress Note Date: 08/21/21 Principal diagnosis: Malnutrition, UTI The patient is a 76 year old female with an extensive past medical history including, gastric ulcers s/p gastrectomy, recurrent aspiration pneumonia, malnutrition, recurrent PICC line infectins, sepsis, COPD, CVA, GERD, OA, CRF, hypothyroidism, and spinal stenosis. She presented to the on 08/09/21 stating that she was on parenteral nutrition up to 2 weeks ago. She states her guardian placed her on Hospice and took out her PICC line. The patient states she does not want to be in hospice. Patient was sent here by her primary care physician for PICC placement and TPN. Patient has had weight loss. Patient states she is able to eat tiny amount of food, but has unable to tolerate it. She c/o nausea and vomiting when she attempts to eat for the past 2 weeks. 08/09 - Education provided to patient regarding her multiple health conditions. The patient states she wants to live and never wanted to be put on Hospice. She stated her gaurdian put her on hospice without her knowledge or consent. Her goal is prolonged survival despite many hospital readmissions. Information regarding palliative care given to patient. 08/12 The patient is anxious today. She states she is confused on plan of care. She is upset because she has not gotten a PICC line placed or started TPN It was explained that Dr. Laguerre spoke with the nurse case management and expressed that TPN was not being given in a safe manner. She also was concerned that the patient was not following up despite trying to contact the patient multiple times so she will not sign for TPN again. It was explained that the decision to re-start TPN will be up to her attending. 08/13 Palliative care BODY SHOP SUPERVISOR, nurse case management, and RN met with the patient today. She was very anxious, emotional, and tearful. She was informed that legally, Rosario, will remain her guardian until her sister is able to go to court and take over. Dr. Desir has agreed to start the patient on TPN, and PICC line placement is pending. The concern is the patient will not give herself the TPN or follow up with the physician again. The patient stated she had pneumonia last time, and promised this would not happen again. She states she is educated on how to administer it properly, and has a support person, Jonn, who lives nearby. 08/14 Patient less anxious today and not as emotional. PICC line placement was attempted in the right upper extremity basilic vein. However, it was aborted yesterday due to thrombus by IR. Per vascular surgery- Dr. Carter cleared patient to have PICC line placed in the left upper extremity. If there is difficulty with placement, they will consider possible tunneled catheter for TPN if indicated. 08/15 The patient is in bed. She has a double lumen PICC to the right upper extremity with TPN infusing. She is mildly anxious, stating that her Wellbutrin dosage is wrong. She is taking 300mg here and takes 450mg daily at home. Dr. Desir notified, order for Wellbutrin changed. 08/16 The patient is in bed. She has a double lumen PICC to the right upper extremity with TPN infusing. Encouraged oral intake and to increase activity. 08/19 The patient has a double lumen PICC to the right upper extremity with TPN infusing. She was encouraged to increase her oral intake and activity. She has a visitor and is in good spirits today. Patient's sister, Kamilah, called to discuss discharge plans. 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 Kamilah would like to try and let Louise live as independently as possible. Now that she is on the correct dosage of Wellbutrin (450mg daily) and her depression will be better controlled, Kamilah believes Louise will be able to care for herself. She stated she would be able to teach her how to administer her TPN correctly. If the patient does not do well by herself, she would then be open to putting Louise in a assisted living facility closer to her. She was reminded that she does not have guardianship over the patient yet. Until the court awards her guardianship, Rosario, her current guardian will have to make her decisions. She was encouraged to discuss her concerns with the nurse case management as well. 08/20 The plan is to discharge the patient home with home visiting nurse and outpatient palliative care once case management is able to fine an infusion company that accepts her insurance. The patient's sister, Kamilah, would still like to try and let Louise live as independently as possible. If the patient does not do well by herself, she would then be open to putting Louise in a assisted living facility closer to her. Objective - Vital Signs Vital signs: Vital Signs Temp 98.3 F 08/21/21 04:16 Pulse 93 08/21/21 04:16 Resp 16 08/21/21 04:16 BP 129/73 08/21/21 04:16 Pulse Ox 100 08/21/21 04:16 Intake & Output 08/20/21 08/21/21 08/21/21 18:59 06:59 18:59 Intake Total 760 Balance 760 Intake: Intake, IV Titration 400 Amount Sodium Acetate 60 meq 400 Magnesium Sulfate gm 0.5 gm Calcium Gluconate 1 gm In Amino Acids 5 %/ Dextrose 20 % 1,000 ml @ 50 mls/hr IV .BY DURATION CHAD Rx#:[id number] Oral 360 Other: Voiding Method Toilet Toilet # Voids 1 2 - Exam General: Patient awake alert and oriented x 3. No acute distress. HEENT: Head is atraumatic, normocephalic Neck is supple. Sclerae are clear. Pupils equal, round and reactive to light bilaterally. CV: Heart regular in rate and rhythm positive S1 and S2. No S3. No S4. No clicks, rubs or murmurs. No JVD. Peripheral pulses equal. 2/4 Lungs: CTA No wheezes rales or rhonchi. Respirations even and nonlabored. No intercostal retractions.on RA. Abdomen/GI: Soft. Bowel sounds present in all 4 quadrants. Bowel sounds normoactive. No abdominal tenderness. Musculoskeletal/ Extremities: No tenderness on muscular exam. No ecchymosis. Vascular: Radial pulses equal. 2/4. Skin: No rash. Neurologic: Awake, alert and oriented times 3. Psychiatric: Appropriate mood and affect - Labs CBC & Chem 7: 08/19/21 05:22 08/20/21 07:43 Assessment and Plan Plan: Symptoms * Pain - Patient has chronic back and neck pain and migraines. She takes Methadone, Dilaudid, and Fioricet at home. She does have those available here at the hospital with the addition of Tylenol. She stated her pain is well controlled with this regimen. There is also PRN Narcan orderd. * Energy level/Fatigue - Lately she has been feeling weak and fatigued. She believes this is due to malnutrition and will improve with TPN. She states her energy level i starting to improve. * SOB - denies, Continue Symbicort and Albuterol neb * Insomnia - Takes Remeron at home and has been continued here, sleeping well * N/V - Denies, She is currently on a pureed diet d/t dysphagia. Continue Zofran PRN * Anxiety/Depression - Wellbutrin 450mg, Vistaril, and Buspar continued. * Confusion/Agitation - none * Appetite/dysphagia/weight loss -Encourage PO intake and continue TPN * Constipation - Chronic constipation due to narcotic use - Home Miralax ordered. * Incontinence - none * Itch - occasional, Continue Vistaril * Hallucinations - none Plan/Goals: The nurse case management was able to arrange TPN to be delivered to the patient this evening. Patient to be discharged home today. Palliative Care to follow patient as outpatient. Code Status - the patient wishes to remain a DNR Yamini Corado [facility]- Palliative Care [facility] [id number] Email: [email or web address] Time with Patient: Less than 30
--- NOTE | 2021-08-21 11:59 | P.PN ---
Subjective Patient is seen in follow-up for chronic kidney disease. Renal function stable as of yesterday. Receiving TPN. Oral intake fair. No vomiting or diarrhea. No active complaints. Discharge planning in progress. Possibly going home today. Vital signs are stable. General: No acute distress. HEENT: Head exam is unremarkable. LUNGS: Breath sounds decreased. HEART: Rate and Rhythm are regular. ABDOMEN: Soft, no distention. EXTREMITITES: No edema. Objective - Vital Signs Vital signs: Vital Signs Temp 98.3 F 08/21/21 04:16 Pulse 93 08/21/21 04:16 Resp 16 08/21/21 04:16 BP 129/73 08/21/21 04:16 Pulse Ox 100 08/21/21 04:16 Intake & Output 08/20/21 08/21/21 08/21/21 18:59 06:59 18:59 Intake Total 760 Balance 760 Intake: Intake, IV Titration 400 Amount Sodium Acetate 60 meq 400 Magnesium Sulfate gm 0.5 gm Calcium Gluconate 1 gm In Amino Acids 5 %/ Dextrose 20 % 1,000 ml @ 50 mls/hr IV .BY DURATION CHAD Rx#:[id number] Oral 360 Other: Voiding Method Toilet Toilet # Voids 1 2 - Labs CBC & Chem 7: 08/19/21 05:22 08/20/21 07:43 Assessment and Plan Plan: Assessment: 1. Chronic kidney disease stage IIIB with baseline creatinine in the range of 1.3-1.5 secondary to nephrosclerosis. GFR at baseline. 2. Enterococcus UTI. s/p antibiotics. 3. History of gastric ulcer status post gastrectomy with history of aspirations. 4. Chronic kidney disease mineral bone disease maintained on calcitriol. 5. Hyponatremia secondary to hypotonic fluid infusion. Improved. 6. Metabolic acidosis secondary to acute kidney injury and IV fluids. On oral bicarb. Plan: No changes from nephrology standpoint. Follow-up outpatient in 1-2 weeks.
[2021-08-21 12:14] LABS: African American GFR (CKD) 41 (>60 ml/min/1.73 sqM); Anion Gap 10 mmol/L; Blood Urea Nitrogen 62 mg/dL (7-17); Calcium 9.5 mg/dL (8.4-10.2); Carbon Dioxide 24 mmol/L (22-30); Chloride 101 mmol/L (98-107); Glucose 107 mg/dL (74-99); Magnesium 2.2 mg/dL (1.6-2.3); Non-African American GFR(CKD) 36 (>60 ml/min/1.73 sqM); Phosphorus 4.1 mg/dL (2.5-4.5); Potassium 5.1 mmol/L (3.5-5.1); Sodium 135 mmol/L (137-145)
[2021-08-21] MEDS: SODIUM ACETATE IV SCH ×6 (12:27)
[2021-08-21] MEDS: MAGNESIUM SULFATE IV SCH ×6 (12:27)
[2021-08-21] MEDS: CALCIUM GLUCONATE IV SCH ×6 (12:27)
[2021-08-21] MEDS: [UNRECOGNIZED DRUG - OTHER] IV SCH ×6 (12:27)
== END 2021-08-21 17:05 | disposition home health service (06) | DRG 641 ==
LOC: EC 16:44 → 5NMEDONC 21:35
PROVIDERS: ADMIT Internal Medicine; ATTEND Internal Medicine
PROC: 02HV33Z Insertion of Infusion Device into Superior Vena Cava, Percutaneous Approach (ICD-10-PCS; principal; 2021-08-14 12:50)
PROC: 3E0436Z Introduction of Nutritional Substance into Central Vein, Percutaneous Approach (ICD-10-PCS; 2021-08-15)
DX: E46 Unspecified protein-calorie malnutrition (principal); Z68.1 Body mass index [BMI] 19.9 or less, adult; E87.1 Hypo-osmolality and hyponatremia; E87.2 Acidosis; N17.9 Acute kidney failure, unspecified; N18.4 Chronic kidney disease, stage 4 (severe); N39.0 Urinary tract infection, site not specified; K91.2 Postsurgical malabsorption, not elsewhere classified; Z16.11 Resistance to penicillins; I82.611 Acute embolism and thrombosis of superficial veins of right upper extremity; Z86.19 Personal history of other infectious and parasitic diseases; Z28.310 Unvaccinated for COVID-19; Z53.09 Procedure and treatment not carried out because of other contraindication; B95.2 Enterococcus as the cause of diseases classified elsewhere; E03.9 Hypothyroidism, unspecified; E83.9 Disorder of mineral metabolism, unspecified; F32.9 Major depressive disorder, single episode, unspecified; D50.9 Iron deficiency anemia, unspecified; R62.7 Adult failure to thrive; R13.10 Dysphagia, unspecified; I12.9 Hypertensive chronic kidney disease with stage 1 through stage 4 chronic kidney disease, or unspecified chronic kidney disease; J44.9 Chronic obstructive pulmonary disease, unspecified; K21.9 Gastro-esophageal reflux disease without esophagitis; K59.03 Drug induced constipation; T40.605A Adverse effect of unspecified narcotics, initial encounter; M48.02 Spinal stenosis, cervical region; M19.90 Unspecified osteoarthritis, unspecified site; Z87.01 Personal history of pneumonia (recurrent); G43.909 Migraine, unspecified, not intractable, without status migrainosus; G47.00 Insomnia, unspecified; F41.0 Panic disorder [episodic paroxysmal anxiety]; R47.02 Dysphasia; Z79.51 Long term (current) use of inhaled steroids; G89.29 Other chronic pain; Z79.82 Long term (current) use of aspirin; Z79.890 Hormone replacement therapy; Z79.899 Other long term (current) drug therapy; Z80.41 Family history of malignant neoplasm of ovary; Z80.51 Family history of malignant neoplasm of kidney; Z82.49 Family history of ischemic heart disease and other diseases of the circulatory system; Z86.16 Personal history of COVID-19; Z86.73 Personal history of transient ischemic attack (TIA), and cerebral infarction without residual deficits; Z87.11 Personal history of peptic ulcer disease; Z90.3 Acquired absence of stomach [part of]; Z90.710 Acquired absence of both cervix and uterus; Z60.2 Problems related to living alone; Z88.5 Allergy status to narcotic agent; Z66 Do not resuscitate; Z98.890 Other specified postprocedural states; Z96.642 Presence of left artificial hip joint
CPT/HCPCS: 36410; 36415; 36573; 71046; 76937; 80048; 80053; 81001; 82150; 82330; 82607; 82746; 83540; 83550; 83605; 83690; 83735; 84100; 84478; 84484; 85025; 85610; 85730; 87077; 87086; 87186; 93005; 94640; 96360; 96361; 99285

== ENCOUNTER 2021-09-01 14:07 | Inpatient (IN) | payer MEDICARE, OTHER ==
--- NOTE | 2021-09-01 15:48 | XR ---
EXAMINATION TYPE: XR Hip Complete LT DATE OF EXAM: 09/01/2021 COMPARISON: 05/04/2021 HISTORY: Fall. Pain TECHNIQUE: 2 views FINDINGS: There is left hip prosthesis. Components appear intact. I see no fracture nor dislocation. There is some calcification in the soft tissues lateral to the prosthetic femoral head. IMPRESSION: No fracture seen.
--- NOTE | 2021-09-01 16:18 | CT ---
EXAMINATION TYPE: CT brain tiffanyine wo con DATE OF EXAM: 09/01/2021 COMPARISON: CT brain 03/11/2021 HISTORY: pain after fall CT DLP: 1212.5 mGycm Automated exposure control for dose reduction was used. Images of the brain and cervical spine obtained without contrast. There is mild cerebral atrophy. There is no mass effect nor midline shift. There is no sign of intrac ranial hemorrhage. There is normal aeration of the mastoid sinuses. The cervical vertebra have normal alignment. Disc spaces are fairly normal. Posterior elements are in tact. No compression fracture. There is mild hypertrophic multilevel cervical facet arthropathy. No e vidence of focal bone destruction. IMPRESSION: Mild cerebral atrophy. No acute intracranial abnormality. No change. Mild degenerative hypertrophic changes in the cervical spine. No fracture. Nodular infiltrates noted at the lung apices and also present on the old exam of 01/28/2021.
[2021-09-01] MEDS ORDERED: SODIUM CHLORIDE 0.9% 500 ML 500 ML IV STA (16:32)
[2021-09-01] MEDS ORDERED: METHADONE 10 MG TAB PO STA (16:34)
[2021-09-01] MEDS ORDERED: buPROPion XL 150 MG TAB.ER.24H PO STA (16:37)
--- NOTE | 2021-09-01 16:40 | ED ---
Fall HPI - General Chief Complaint: Fall Stated Complaint: Fall,Hip Pain Time Seen by Provider: 09/01/21 16:25 Source: patient, RN notes reviewed Mode of arrival: ambulatory - History of Present Illness Initial Comments: This is a 76-year-old female with chronic pain. Patient presents stating that she fell on Thursday. Patient states that her doctor increased her methadone to 20 mg in the morning and 10 mg at night. She states increased dose made her feel fatigued and lightheaded. She believes this caused her to fall. Patient states she bumped her head. She also has pain to her bilateral hips bilateral shoulders. Patient states that due to the medication change she has felt somewhat weak. Unable to use her TPN. Patient denying any fever. She denies any changes in vision or hearing. No numbness or tingling. Patient states she can walk. Patient then adds that she has been out of her pain medication and her antidepressant for 2 days. Patient states she was supposed to have her pain medication filled on Thursday but couldn't go because of the fall. Patient states that she is still on Dilaudid but is supposed to be being weaned off of it by her primary care physician. States general weakness, No headache, no fever or chills, no changes in vision or hearing, no sore throat or difficulty with speech, no neck pain, POSITIVE cough, no chest pain or shortness of breath, no abdominal pain, no nausea or vomiting, no changes in urination or bowel movements, no numbness or tingling, no skin rashes or lesions. MD Complaint: fall - Related Data Home Medications Medication Instructions Recorded Confirmed Ferrous Sulfate [Iron (65 MG 325 mg PO DAILY@1200 11/06/15 09/01/21 Elemental)] calcitrioL [Calcitriol] 1 mcg PO MOWEFR 06/07/19 09/01/21 busPIRone HCL [Buspar] 30 mg PO BID 04/14/20 09/01/21 Butalb/APAP/Caff 50-325-40Mg 1 tab PO Q6H 06/30/20 09/01/21 [Fioricet 50-325-40] buPROPion XL [Wellbutrin XL] 150 mg PO DAILY 11/04/20 09/01/21 buPROPion XL [Wellbutrin XL] 300 mg PO DAILY 02/20/21 09/01/21 Albuterol Sulfate [Albuterol 2 puff INHALATION RT-Q6H PRN 04/07/21 09/01/21 Sulfate Hfa] Budesonide/Formoterol Fumarate 2 puff INHALATION RT-BID 04/07/21 09/01/21 [Symbicort 160-4.5 Mcg Inhaler] Aspirin EC [Ecotrin Low Dose] 81 mg PO DAILY 05/12/21 09/01/21 Furosemide [Lasix] 20 mg PO DAILY PRN 08/08/21 09/01/21 HYDROmorphone [Dilaudid] 2 mg PO Q6H PRN 08/08/21 09/01/21 Omeprazole 20 mg PO DAILY 08/08/21 09/01/21 hydrOXYzine pamoate [Vistaril] 100 mg PO TID 08/08/21 09/01/21 polyethylene glycoL 3350 [Miralax] 17 gm PO DAILY PRN 08/08/21 09/01/21 Methadone [Dolophine] 10 mg PO DAILY@1600 09/01/21 09/01/21 Methadone [Dolophine] 20 mg PO DAILY 09/01/21 09/01/21 Mirtazapine [Remeron] 45 mg PO HS 09/01/21 09/01/21 Naloxone HCl [Narcan] 4 mg NASAL ONCE PRN 09/01/21 09/01/21 Ondansetron [Zofran] 4 mg PO Q6H PRN 09/01/21 09/01/21 Previous Rx's Medication Instructions Recorded Levothyroxine Sodium [Synthroid] 100 mcg PO DAILY@0630 30 Days #30 06/19/21 tab Sodium Bicarbonate Tab 650 mg PO DAILY 30 Days #30 tab 08/21/21 Allergies Allergy/AdvReac Type Severity Reaction Status Date / Time mold Allergy Itching Verified 09/01/21 19:35 denosumab [From Prolia] AdvReac SEVERE Verified 09/01/21 19:35 CALCIUM LOSS morphine AdvReac Confusion Verified 09/01/21 19:35 DUST Allergy Itching Uncoded 09/01/21 19:35 Review of Systems ROS Statement: Those systems with pertinent positive or pertinent negative responses have been documented in the HPI. ROS Other: All systems not noted in ROS Statement are negative. Past Medical History Past Medical History: Asthma, COPD, CVA/TIA, GERD/Reflux, Memory Impairment, Osteoarthritis (OA), Pneumonia, Renal Disease, Respiratory Disorder, Thyroid Disorder Additional Past Medical History / Comment(s): Aspiration, pneumonias, covid pneumonia, protein calorie malnutrition, pt was on TPN with PICC line managed thru [facility], chronic anemia, gastric ulcers/PUD, pancreatitis, bowel obstruction/surgery, constipation, CKD stage IV, TIA, chronic migraines, chronic back/cervical pain/spinal stenosis, hypothyroid, hyponatremia. History of Any Multi-Drug Resistant Organisms: Other MDRO Past Surgical History: Back Surgery, Bowel Resection, Hysterectomy, Joint Replacement Additional Past Surgical History / Comment(s): LOWER BACK SURGERY lamenectomy/discetomy then had a revison of that sx. 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, nasal sx d/t broken nose, colonoscopy/egd, PAIN CLINIC PROCEDURES, PORT A CATH INSERTION, LT ADEOLA Past Anesthesia/Blood Transfusion Reactions: No Reported Reaction Additional Past Anesthesia/Blood Transfusion Reaction / Comment(s): PT RECEIVED BLOOD TRANSFUSIONS AFTER STOMACH SURGERY Past Psychological History: Anxiety, Depression, Panic Disorder Smoking Status: Never smoker Past Alcohol Use History: None Reported Past Drug Use History: None Reported - Past Family History Father Family Medical History: Cancer, Coronary Artery Disease (CAD) Additional Family Medical History / Comment(s): FATHER HAD BLADDER AND KIDNEY CANCER. FATHER HAD TB WHEN HE WAS A CHILD .FATHER AT AGE 87. Mother Family Medical History: Cancer Additional Family Medical History / Comment(s): MOTHER AT AGE 58 OF OVARIAN CANCER. General Exam - General Exam Comments Initial Comments: Frail-appearing 76-year-old female in minimal distress. Does not appear to be ill or toxic. Appears to be adequately hydrated. Moist mucous membranes. Mildly tachycardic. Cranial nerves II through XII are intact. No evidence of head trauma. Limitations: no limitations General appearance: alert, in distress (Minimal) Head exam: Present: atraumatic, normocephalic, normal inspection Eye exam: Present: normal appearance, PERRL, EOMI. Absent: scleral icterus, conjunctival injection, periorbital swelling ENT exam: Present: normal exam, normal oropharynx, mucous membranes moist, TM's normal bilaterally, normal external ear exam. Absent: mucous membranes dry Neck exam: Present: normal inspection. Absent: tenderness, meningismus, lymphadenopathy Respiratory exam: Present: normal lung sounds bilaterally. Absent: respiratory distress, wheezes, rales, rhonchi, stridor, chest wall tenderness, accessory muscle use, decreased breath sounds, prolonged expiratory Cardiovascular Exam: Present: regular rate, normal rhythm, normal heart sounds. Absent: systolic murmur, diastolic murmur, rubs, gallop, clicks GI/Abdominal exam: Present: soft, normal bowel sounds. Absent: distended, tenderness, guarding, rebound, rigid Extremities exam: Present: normal inspection, full ROM, normal capillary refill. Absent: tenderness, pedal edema, joint swelling, calf tenderness Back exam: Present: normal inspection Neurological exam: Present: alert, oriented X3, CN II-XII intact, normal gait. Absent: altered, abnormal gait, motor sensory deficit Psychiatric exam: Present: normal affect, anxious. Absent: depressed, agitated, flat affect, homicidal ideation, suicidal ideation Skin exam: Present: warm, dry, intact, normal color. Absent: rash, cyanosis, diaphoretic, erythema, urticaria, vesicles, petechiae, pallor, mottled, abrasion Course Vital Signs 09/01/21 09/01/21 14:15 17:59 Temperature 97.8 F Pulse Rate 113 H 103 H Respiratory 18 18 Rate Blood Pressure 119/69 138/88 O2 Sat by Pulse 98 98 Oximetry - Reevaluation(s) Reevaluation #1: 09/01/21 19:58 Medical record is reviewed Symptoms are improved here in the emergency department Patient is informed of results and questions answered Patient in no distress - Consultations Consultation #1: Case discussed with the admitting physician, Dr. Desir recommends blood cultures antibiotics, etc. admission Medical Decision Making - Medical Decision Making She presents with symptomology, likely related to drug withdrawal. Patient has been out of her narcotic medications since Thursday. Patient also has been out of her Wellbutrin. We'll order a general workup, I'm going to give the patient 1 dose of methadone here. I'll give 1 dose of Wellbutrin XL. Patient will need to follow-up with her primary care physician on Thursday. Curb 65 score is 2 Patient met her for bilateral pneumonia. Blood cultures pending. [employer] Operator is Dr. Vidal - Lab Data Result diagrams: 09/01/21 16:54 09/01/21 16:54 Lab Results 09/01/21 09/01/21 09/01/21 Range/Units 16:54 16:54 16:54 WBC 16.9 H (3.8-10.6) k/uL RBC 4.48 (3.80-5.40) m/uL Hgb 12.2 (11.4-16.0) gm/dL Hct 40.6 (34.0-46.0) % MCV 90.7 (80.0-100.0) fL MCH 27.3 (25.0-35.0) pg MCHC 30.1 L (31.0-37.0) g/dL RDW 17.0 H (11.5-15.5) % Plt Count 564 H (150-450) k/uL MPV 7.2 Neutrophils % 90 % Lymphocytes % 5 % Monocytes % 3 % Eosinophils % 1 % Basophils % 0 % Neutrophils # 15.2 H (1.3-7.7) k/uL Lymphocytes # 0.9 L (1.0-4.8) k/uL Monocytes # 0.5 (0-1.0) k/uL Eosinophils # 0.2 (0-0.7) k/uL Basophils # 0.1 (0-0.2) k/uL Hypochromasia Moderate Anisocytosis Slight Sodium 141 (137-145) mmol/L Potassium 4.2 (3.5-5.1) mmol/L Chloride 104 (98-107) mmol/L Carbon Dioxide 18 L (22-30) mmol/L Anion Gap 19 mmol/L BUN 38 H (7-17) mg/dL Creatinine 1.77 H (0.52-1.04) mg/dL Est GFR (CKD-EPI)AfAm 32 (>60 ml/min/1.73 sqM) Est GFR (CKD-EPI)NonAf 28 (>60 ml/min/1.73 sqM) Glucose 72 L (74-99) mg/dL Plasma Lactic Acid Jonah (0.7-2.0) mmol/L Calcium 8.9 (8.4-10.2) mg/dL Total Bilirubin 0.5 (0.2-1.3) mg/dL AST 27 (14-36) U/L ALT 36 H (4-34) U/L Alkaline Phosphatase 321 H (38-126) U/L Troponin I <0.012 (0.000-0.034) ng/mL Total Protein 7.2 (6.3-8.2) g/dL Albumin 3.9 (3.5-5.0) g/dL Lipase 75 (23-300) U/L 09/01/21 Range/Units 16:54 WBC (3.8-10.6) k/uL RBC (3.80-5.40) m/uL Hgb (11.4-16.0) gm/dL Hct (34.0-46.0) % MCV (80.0-100.0) fL MCH (25.0-35.0) pg MCHC (31.0-37.0) g/dL RDW (11.5-15.5) % Plt Count (150-450) k/uL MPV Neutrophils % % Lymphocytes % % Monocytes % % Eosinophils % % Basophils % % Neutrophils # (1.3-7.7) k/uL Lymphocytes # (1.0-4.8) k/uL Monocytes # (0-1.0) k/uL Eosinophils # (0-0.7) k/uL Basophils # (0-0.2) k/uL Hypochromasia Anisocytosis Sodium (137-145) mmol/L Potassium (3.5-5.1) mmol/L Chloride (98-107) mmol/L Carbon Dioxide (22-30) mmol/L Anion Gap mmol/L BUN (7-17) mg/dL Creatinine (0.52-1.04) mg/dL Est GFR (CKD-EPI)AfAm (>60 ml/min/1.73 sqM) Est GFR (CKD-EPI)NonAf (>60 ml/min/1.73 sqM) Glucose (74-99) mg/dL Plasma Lactic Acid Jonah 0.9 (0.7-2.0) mmol/L Calcium (8.4-10.2) mg/dL Total Bilirubin (0.2-1.3) mg/dL AST (14-36) U/L ALT (4-34) U/L Alkaline Phosphatase (38-126) U/L Troponin I (0.000-0.034) ng/mL Total Protein (6.3-8.2) g/dL Albumin (3.5-5.0) g/dL Lipase (23-300) U/L - EKG Data EKG Comments: EKG done at 1654 ED attending physician reveals sinus tachycardia with a rate of 108. Borderline left axis deviation. Possible right and left atrial enlargement. Normal intervals. No evidence for acute ST or T-wave changes. - Radiology Data Radiology results: report reviewed, image reviewed Disposition Clinical Impression: Community acquired pneumonia, Fall, Sepsis Disposition: ADMITTED IP TO THIS HOSP Condition: Fair Referrals: Ale Eli MD [Primary Care Provider] - 1-2 days Decision to Admit Reason: Admit from EC Decision Time: 18:44
[2021-09-01 17:23] LABS: Anisocytosis Slight; Basophils # (A) 0.1 k/uL (0-0.2); Basophils % (A) 0 %; Eosinophils # (A) 0.2 k/uL (0-0.7); Eosinophils % (A) 1 %; HCT 40.6 % (34.0-46.0); HGB 12.2 gm/dL (11.4-16.0); Hypochromasia Moderate; Lymphocytes # (A) 0.9 k/uL (1.0-4.8); Lymphocytes % (A) 5 %; MCH 27.3 pg (25.0-35.0); MCHC 30.1 g/dL (31.0-37.0); MCV 90.7 fL (80.0-100.0); Mean Platelet Volume 7.2; Monocytes # (A) 0.5 k/uL (0-1.0); Monocytes % (A) 3 %; Neutrophils # (A) 15.2 k/uL (1.3-7.7); Neutrophils % (A) 90 %; Platelet Count 564 k/uL (150-450); RBC 4.48 m/uL (3.80-5.40); WBC 16.9 k/uL (3.8-10.6)
--- NOTE | 2021-09-01 17:32 | XR ---
EXAMINATION TYPE: XR chest 1V portable DATE OF EXAM: 09/01/2021 COMPARISON: 08/08/2021 HISTORY: Abdominal pain TECHNIQUE: Single view FINDINGS: There are patchy areas of airspace consolidation in the midlung calixto. Heart size is moon l. There is left-sided central venous catheter with tip in the superior vena cava. No pleural effusio n. Bony thorax is intact. IMPRESSION: Bilateral airspace consolidation which is increased compared to last exam.
--- NOTE | 2021-09-01 17:34 | XR ---
EXAMINATION TYPE: XR pelvis AP view DATE OF EXAM: 09/01/2021 COMPARISON: 05/04/2021 HISTORY: Pain TECHNIQUE: Single view FINDINGS: The pelvic ring appears intact. There is left hip prosthesis. There is some periarticular s oft tissue ossification. There is fusion surgery in the lower lumbar spine. Sacroiliac joints appear intact. IMPRESSION: No acute abnormality of the pelvis. No fracture seen. No change.
[2021-09-01 17:35] LABS: Albumin 3.9 g/dL (3.5-5.0); Calcium 8.9 mg/dL (8.4-10.2); Potassium 4.2 mmol/L (3.5-5.1); Total Bilirubin 0.5 mg/dL (0.2-1.3); Total Protein 7.2 g/dL (6.3-8.2)
[2021-09-01] MEDS ORDERED: AZITHROMYCIN 500 MG in SODIUM CHLORIDE 0.9% 250 ML IVPB STA (18:41)
[2021-09-01] MEDS ORDERED: PNEUMONIA PROTOCOL UTILIZED 1 EACH MISC PO PRN ×2 (18:41→20:16)
[2021-09-01] MEDS ORDERED: ACETAMINOPHEN TAB 500 MG TAB PO STA (19:59)
[2021-09-01] MEDS ORDERED: ALBUTEROL NEBULIZED 2.5 MG/3 ML INHALATION SCH (20:00)
[2021-09-01] MEDS ORDERED: ACETAMINOPHEN TAB 325 MG TAB PO PRN (20:16)
[2021-09-01] MEDS: SODIUM CHLORIDE 0.9% 1,000 ML IV SCH (20:30)
[2021-09-01] MEDS: HYDROmorphone 2 MG TAB PO PRN (21:32)
[2021-09-01] MEDS: MIRTAZAPINE 45 MG TABLET PO SCH (23:18)
[2021-09-02 01:43] LABS: Appearance,Urine Clear (Clear); Bacteria,Urine Many /hpf; Bilirubin,Urine Negative (Negative); Blood,Urine Negative (Negative); Color,Urine Yellow; Glucose,Urine (UA) Negative (Negative); Hyaline Casts,Urine 3 /lpf (0-2); Ketones,Urine 1+ (Negative); Leukocyte Esterase,Urine Small (Negative); Mucus,Urine Occasional /hpf; Nitrite,Urine Negative (Negative); PH, Urine 5.5 (5.0-8.0); Protein,Urine 1+ (Negative); RBC,Urine <1 /hpf (0-5); Specific Gravity,Urine 1.025 (1.001-1.035); Squamous Epithelial Cell,Urine 1 /hpf (0-4); Urobilinogen,Urine <2.0 mg/dL (<2.0); WBC,Urine 13 /hpf (0-5)
[2021-09-02] MEDS: SODIUM CHLORIDE 0.9% 1,000 ML IV SCH ×2 (04:53→16:19)
[2021-09-02] MEDS: HYDROmorphone 2 MG TAB PO PRN (05:17)
[2021-09-02] MEDS: ENOXAPARIN 30 MG/0.3 ML SYRINGE SQ SCH (07:52)
[2021-09-02] MEDS ORDERED: polyethylene glycoL 3350 17 GM POWD.PACK PO PRN (08:00)
[2021-09-02] MEDS ORDERED: FUROSEMIDE 20 MG TAB PO PRN (08:00)
[2021-09-02] MEDS ORDERED: NON FORMULARY DRUG (Naloxone Hcl [Narcan] 4 MG Each) NASAL PRN (08:00)
[2021-09-02] MEDS: METHADONE 10 MG TAB PO SCH ×2 (08:38→16:19)
[2021-09-02] MEDS: BUTALB/APAP/CAFF 50-325-40MG TAB PO SCH ×3 (08:39→20:42)
[2021-09-02] MEDS: buPROPion XL 150 MG TAB.ER.24H PO SCH (08:39)
[2021-09-02] MEDS: hydrOXYzine pamoate 25 MG CAP PO SCH ×3 (08:39→20:42)
[2021-09-02] MEDS: busPIRone HCl 10 MG TAB PO SCH ×2 (08:39→20:42)
[2021-09-02] MEDS: ASPIRIN 81 MG PO SCH (08:40)
[2021-09-02] MEDS: SODIUM BICARBONATE TAB 650 MG TAB PO SCH (08:40)
[2021-09-02] MEDS: PANTOPRAZOLE 40 MG TABLET PO SCH (08:40)
--- NOTE | 2021-09-02 08:51 | XR ---
EXAMINATION TYPE: XR chest 1V DATE OF EXAM: 09/02/2021 COMPARISON: 09/01/2021 HISTORY: Cough TECHNIQUE: Single frontal view of the chest is obtained. FINDINGS: Bilateral areas of consolidation persist. Underlying COPD noted. Neoplastic process versus pneumonia. No pneumothorax. Left-sided central line noted stable chronic clavicular deformity seen. Heart size stable IMPRESSION: 1. Bilateral areas of infiltrate are stable correlate for pneumonia. 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 2. COPD
[2021-09-02] MEDS ORDERED: hydrOXYzine HCL 25 MG TAB PO PRN (09:00)
[2021-09-02] MEDS ORDERED: buPROPion XL 300 MG TAB.ER.24H PO SCH (09:00)
[2021-09-02] MEDS: SYMBICORT 160-4.5 MCG INHALER INHALATION SCH ×2 (09:20→19:26)
[2021-09-02 14:25] LABS: ALT 32 U/L (4-34); AST 26 U/L (14-36); African American GFR (CKD) 37 (>60 ml/min/1.73 sqM); Albumin 3.7 g/dL (3.5-5.0); Albumin/Globulin Ratio 1.2; Alkaline Phosphatase 302 U/L (38-126); Anion Gap 14 mmol/L; Blood Urea Nitrogen 38 mg/dL (7-17); Calcium 8.6 mg/dL (8.4-10.2); Carbon Dioxide 19 mmol/L (22-30); Chloride 105 mmol/L (98-107); Globulin 3.2 g/dL; Glucose 112 mg/dL (74-99); Magnesium 2.1 mg/dL (1.6-2.3); Non-African American GFR(CKD) 32 (>60 ml/min/1.73 sqM); Phosphorus 3.9 mg/dL (2.5-4.5); Potassium 3.8 mmol/L (3.5-5.1); Sodium 138 mmol/L (137-145); Total Bilirubin 0.4 mg/dL (0.2-1.3); Total Protein 6.9 g/dL (6.3-8.2)
[2021-09-02] MEDS: FERROUS SULFATE 325 MG TAB PO SCH (14:25)
--- NOTE | 2021-09-02 15:20 | P.CNPUL ---
History of Present Illness Consult date: 09/02/21 Requesting physician: Palmer Desir Reason for consult: cough Chief complaint: Falls, cough, chronic aspiration History of present illness: This is a 76-year-old white female patient who is well-known to our service from multiple hospitalizations for recurrent aspiration pneumonia. Patient had a history of previous gastrectomy, chronic dysphagia, recurrent aspiration pneumonia, chronic malnutrition and failure to thrive, patient is maintained on TPN in addition to a soft diet by mouth. Patient also has history of chronic kidney disease stage III, hypothyroidism, migraine headaches, chronic pain syndrome, history of CVA, and history of PICC line infection and sepsis. Patient came into the emergency department on 09/01/2021 for evaluation of a fall, and pain in left hip, bilateral shoulders, and patient apparently bumped her head in the fall as well. She had a recent adjustment of her methadone dose which was increased to 20 mg in the morning and 10 mg at night and the dose increased made her fatigued and lightheaded. She reports coughing up some green colored phlegm, no hemoptysis, no chest discomfort. Her chest x-ray showing bilateral airspace consolidation which had increased since her last chest x-ray from 08/08/2021. X-ray of the left hip showed left hip prosthesis, no fracture or dislocation. X-ray of the pelvis showed no acute abnormality of the pelvis, no fracture. CT of the brain and cervical spine was completed showing no acute intracranial abnormality, and mild degenerative hypertrophic changes in the cervical spine, no fracture. There were nodular infiltrates at the lung apices there were also seen on CT from 01/28/2021. Room air pulse ox in the 100%, afebrile, hemodynamics stable. Admission labs have been reviewed showing white blood cell count of 16.9, hemoglobin 12.2, sodium of 141, potassium is 4.2, CO2 was 18, BUN was 38, creatinine is 1.7, CRP was elevated at 15.5, lipase was normal at 75, troponin was less than 0.012, alkaline phosphatase was 321, ALT was 36, and AST was 27, urinalysis showed mildly increased white blood cells at 13, 1+ ketones, small amount of leukocyte esterase, she tested negative for COVID 19, influenza A and B. Review of Systems All systems: negative Constitutional: Denies chills, Denies fever Eyes: denies blurred vision, denies pain Ears, nose, mouth and throat: Denies headache, Denies sore throat Cardiovascular: Denies chest pain, Denies shortness of breath Respiratory: Reports dyspnea, Denies cough Gastrointestinal: Denies abdominal pain, Denies diarrhea, Denies nausea, Denies vomiting Genitourinary: Denies dysuria, Denies hematuria Musculoskeletal: Denies myalgias Integumentary: Denies pruritus, Denies rash Neurological: Denies numbness, Denies weakness Psychiatric: Denies anxiety, Denies depression Endocrine: Denies fatigue, Denies weight change Past Medical History Past Medical History: Asthma, COPD, CVA/TIA, GERD/Reflux, Memory Impairment, Osteoarthritis (OA), Pneumonia, Renal Disease, Respiratory Disorder, Thyroid Disorder Additional Past Medical History / Comment(s): Pt recently admitted to [facility] on 08/08/21 with malnutrition, failure to thrive, acute on chronic renal failure, anemia, UTI. Other hx: Aspiration, pneumonias, 04/2021 covid pneumonia, protein calorie malnutrition, pt was on TPN with PICC line managed thru [facility], chronic anemia, gastric ulcers/PUD/gastrectomy, pancreatitis, bowel obstruction/surgery, constipation, CKD stage IV, TIA, chronic migraines, chronic back/cervical pain/spinal stenosis, hypothyroid, hyponatremia. History of Any Multi-Drug Resistant Organisms: Other MDRO Past Surgical History: Back Surgery, Bowel Resection, Hysterectomy, Joint Replacement Additional Past Surgical History / Comment(s): LOWER BACK SURGERY lamenectomy/discetomy then had a revison of that sx. 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, nasal sx d/t broken nose, colonoscopy/egd, PAIN CLINIC PROCEDURES, PORT A CATH INSERTION, LT ADEOLA Past Anesthesia/Blood Transfusion Reactions: No Reported Reaction Additional Past Anesthesia/Blood Transfusion Reaction / Comment(s): PT RECEIVED BLOOD TRANSFUSIONS AFTER STOMACH SURGERY Smoking Status: Never smoker - Past Family History Father Family Medical History: Cancer, Coronary Artery Disease (CAD) Additional Family Medical History / Comment(s): FATHER HAD BLADDER AND KIDNEY CANCER. FATHER HAD TB WHEN HE WAS A CHILD .FATHER AT AGE 87. Mother Family Medical History: Cancer Additional Family Medical History / Comment(s): MOTHER AT AGE 58 OF OVARIAN CANCER. Medications and Allergies Home Medications Medication Instructions Recorded Confirmed Type Ferrous Sulfate [Iron (65 MG 325 mg PO DAILY@1200 11/06/15 09/01/21 History Elemental)] calcitrioL [Calcitriol] 1 mcg PO MOWEFR 06/07/19 09/01/21 History busPIRone HCL [Buspar] 30 mg PO BID 04/14/20 09/01/21 History Butalb/APAP/Caff 50-325-40Mg 1 tab PO Q6H 06/30/20 09/01/21 History [Fioricet 50-325-40] buPROPion XL [Wellbutrin XL] 150 mg PO DAILY 11/04/20 09/01/21 History buPROPion XL [Wellbutrin XL] 300 mg PO DAILY 02/20/21 09/01/21 History Albuterol Sulfate [Albuterol 2 puff INHALATION RT-Q6H PRN 04/07/21 09/01/21 History Sulfate Hfa] Budesonide/Formoterol Fumarate 2 puff INHALATION RT-BID 04/07/21 09/01/21 History [Symbicort 160-4.5 Mcg Inhaler] Aspirin EC [Ecotrin Low Dose] 81 mg PO DAILY 05/12/21 09/01/21 History Levothyroxine Sodium [Synthroid] 100 mcg PO DAILY@0630 30 Days #30 06/19/21 09/01/21 Rx tab Furosemide [Lasix] 20 mg PO DAILY PRN 08/08/21 09/01/21 History HYDROmorphone [Dilaudid] 2 mg PO Q6H PRN 08/08/21 09/01/21 History Omeprazole 20 mg PO DAILY 08/08/21 09/01/21 History hydrOXYzine pamoate [Vistaril] 100 mg PO TID 08/08/21 09/01/21 History polyethylene glycoL 3350 [Miralax] 17 gm PO DAILY PRN 08/08/21 09/01/21 History Sodium Bicarbonate Tab 650 mg PO DAILY 30 Days #30 tab 08/21/21 09/01/21 Rx Methadone [Dolophine] 10 mg PO DAILY@1600 09/01/21 09/01/21 History Methadone [Dolophine] 20 mg PO DAILY 09/01/21 09/01/21 History Mirtazapine [Remeron] 45 mg PO HS 09/01/21 09/01/21 History Naloxone HCl [Narcan] 4 mg NASAL ONCE PRN 09/01/21 09/01/21 History Ondansetron [Zofran] 4 mg PO Q6H PRN 09/01/21 09/01/21 History Allergies Allergy/AdvReac Type Severity Reaction Status Date / Time mold Allergy Itching Verified 09/01/21 19:35 denosumab [From Prolia] AdvReac SEVERE Verified 09/01/21 19:35 CALCIUM LOSS morphine AdvReac Confusion Verified 09/01/21 19:35 DUST Allergy Itching Uncoded 09/01/21 19:35 Physical Exam Vitals: Vital Signs Temp Pulse Pulse Resp BP BP Pulse Ox 09/02/21 12:05 98.2 F 99 20 139/69 09/02/21 10:00 20 09/02/21 07:31 100 09/02/21 06:35 92 18 139/74 100 09/02/21 05:00 104 H 18 139/83 99 09/02/21 04:00 106 H 18 146/74 99 09/02/21 03:00 105 H 18 134/68 99 09/02/21 00:00 109 H 18 141/59 99 09/01/21 22:00 110 H 16 134/76 97 09/01/21 20:00 97 20 126/62 100 09/01/21 17:59 103 H 18 138/88 98 Intake and Output 09/01/21 09/02/21 09/02/21 22:59 06:59 14:59 Other: Weight 38.102 kg GENERAL EXAM: Alert, very pleasant, 76-year-old white female, cachectic, but appears to be in no acute distress, on room air comfortable in no apparent distress. HEAD: Normocephalic/atraumatic. EYES: Normal reaction of pupils, equal size. Conjunctiva pink, sclera white. NOSE: Clear with pink turbinates. THROAT: No erythema or exudates. NECK: No masses, no JVD, no thyroid enlargement, no adenopathy. CHEST: No chest wall deformity. Symmetrical expansion. LUNGS: Equal air entry with no crackles, wheeze, rhonchi or dullness. CVS: Regular rate and rhythm, normal S1 and S2, no gallops, no murmurs, no rubs ABDOMEN: Soft, nontender. No hepatosplenomegaly, normal bowel sounds, no guarding or rigidity. EXTREMITIES: No clubbing, no edema, no cyanosis, 2+ pulses and upper and lower extremities. MUSCULOSKELETAL: Muscle strength and tone normal. SPINE: No scoliosis or deformity SKIN: No rashes CENTRAL NERVOUS SYSTEM: Alert and oriented -3. No focal deficits, tone is normal in all 4 extremities. PSYCHIATRIC: Alert and oriented -3. Appropriate affect. Intact judgment and insight. Results - Laboratory Findings CBC and BMP: 09/01/21 16:54 09/02/21 13:56 Abnormal lab findings: Abnormal Labs 09/01/21 09/01/21 09/01/21 16:54 16:54 21:14 WBC 16.9 H MCHC 30.1 L RDW 17.0 H Plt Count 564 H Neutrophils # 15.2 H Lymphocytes # 0.9 L Carbon Dioxide 18 L BUN 38 H Creatinine 1.77 H Glucose 72 L ALT 36 H Alkaline Phosphatase 321 H C-Reactive Protein 15.5 H Urine Protein Urine Ketones Ur Leukocyte Esterase Urine WBC Urine Bacteria Hyaline Casts Urine Mucus 09/02/21 09/02/21 01:33 13:56 WBC MCHC RDW Plt Count Neutrophils # Lymphocytes # Carbon Dioxide 19 L BUN 38 H Creatinine 1.58 H Glucose 112 H ALT Alkaline Phosphatase 302 H C-Reactive Protein Urine Protein 1+ H Urine Ketones 1+ H Ur Leukocyte Esterase Small H Urine WBC 13 H Urine Bacteria Many H Hyaline Casts 3 H Urine Mucus Occasional H - Diagnostic Findings Chest x-ray: report reviewed, image reviewed Additional studies: X-ray of the left hip, x-ray of the pelvis, CT of the head and cervical spine Assessment and Plan Plan: Assessment: #1. Dyspnea, cough related to recurrent aspiration, with the possibility of recurrent aspiration related pneumonia #2. Fall at home, following methadone dose increase, CT of the brain, cervical spine, left hip and pelvis showed no acute findings, no acute fracture or dislocation #3. Acute kidney injury #4. Chronic kidney disease stage III at baseline #5. Malnutrition and failure to thrive #6. Recurrent aspiration with multiple hospitalizations, patient is currently on TPN for nutritional support in addition to some oral feedings on soft diet #7. History of gastrectomy #8. Recent hospitalization for urinary tract infection, related to enterococcus faecalis #9. Chronic pain syndrome #10. Previous history of CVA #11. History of hypothyroidism #12. History of spinal stenosis and chronic back pain #13. History of chronic anemia of chronic disease #14. Anxiety/depression Plan: Chest x-ray has been reviewed, patient was seen at the bedside along with Dr. Montilla We can continue the patient on current antibiotic coverage Continue gentle IV hydration We'll send a sputum specimen, pro calcitonin level Continue nebulized bronchodilators GI DVT prophylaxis We'll continue to follow her clinical course I have personally seen and examined the patient, performed the documentation and the assessment and plan as written. Number of minutes spent on the visit: [15] Time with Patient: Greater than 30
[2021-09-02] MEDS: IPRATROPIUM-ALBUTEROL 3 ML NEB INHALATION PRN (15:35)
[2021-09-02] MEDS ORDERED: MVI, ADULT NO.4 WITH VIT K 10 ML, TRACE (CONC-1ML/DOSE) 1 ML in AMINO ACID 5%-D20W+LYTE... IV ONE ×3 (16:00)
[2021-09-02] MEDS: FAT EMULSION 20% 500 ML in EMPTY BAG 1 BAG IV SCH (16:21)
--- NOTE | 2021-09-02 17:11 | P.HPIM ---
History of Present Illness H&P Date: 09/02/21 Louise Sutton, is a 76-year-old female who presented to [facility] emergency room with a chief complaint of fatigue and cough of yellow greenish phlegm. She was evaluated in the emergency room vital examination on presentation revealed a temperature of 97.8 pulse 113 respiration 18 and blood pressure 119/69 pulse ox 98% on room air Laboratory data revealed a white blood count of 16.9 hemoglobin 12.2 platelet count 564 BUN 38 creatinine 1.77 Testing in the emergency room revealed chest x-ray done in the emergency room revealed bilateral infiltrate suggestive of pneumonia Patient was admitted to medical floor for further evaluation and treatment Past medical history is significant for history of gastrectomy, history of failure to thrive maintained on TPN, history of recurrent reflux with recurrent aspiration pneumonia, history of chronic kidney disease previous history of stroke history of hypothyroidism history of spinal stenosis with chronic back pain Past Medical History Past Medical History: Asthma, COPD, CVA/TIA, GERD/Reflux, Memory Impairment, Osteoarthritis (OA), Pneumonia, Renal Disease, Respiratory Disorder, Thyroid D isorder Additional Past Medical History / Comment(s): Aspiration, pneumonias, covid pneumonia, protein calorie malnutrition, pt was on TPN with PICC line managed thru [facility], chronic anemia, gastric ulcers/PUD, pancreatitis, bowel obstruction/surgery, constipation, CKD stage IV, TIA, chronic migraines, chronic back/cervical pain/spinal stenosis, hypothyroid, hyponatremia. History of Any Multi-Drug Resistant Organisms: Other MDRO Past Surgical History: Back Surgery, Bowel Resection, Hysterectomy, Joint Replacement Additional Past Surgical History / Comment(s): LOWER BACK SURGERY lamene ctomy/discetomy then had a revison of that sx. 04/21 stomach removed 1989 then other half removed 1994 d/t ulcers-pouch created from small intestine, nasal sx d/t broken nose, colonoscopy/egd, PAIN CLINIC PROCEDURES, PORT A CATH INSERTION, LT ADEOLA Past Anesthesia/Blood Transfusion Reactions: No Reported Reaction Additional Past Anesthesia/Blood Transfusion Reaction / Comment(s): PT RECEIVED BLOOD TRANSFUSIONS AFTER STOMACH SURGERY Past Psychological History: Anxiety, Depression, Panic Disorder Smoking Status: Never smoker Past Alcohol Use History: None Reported Past Drug Use History: None Reported - Past Family History Father Family Medical History: Cancer, Coronary Artery Disease (CAD) Additional Family Medical History / Comment(s): FATHER HAD BLADDER AND KIDNEY CANCER. FATHER HAD TB WHEN HE WAS A CHILD .FATHER AT AGE 87. Mother Family Medical History: Cancer Additional Family Medical History / Comment(s): MOTHER AT AGE 58 OF OVARIAN CANCER. Medications and Allergies Home Medications Medication Instructions Recorded Confirmed Type Ferrous Sulfate [Iron (65 MG 325 mg PO DAILY@1200 11/06/15 09/01/21 History Elemental)] calcitrioL [Calcitriol] 1 mcg PO MOWEFR 06/07/19 09/01/21 History busPIRone HCL [Buspar] 30 mg PO BID 04/14/20 09/01/21 History Butalb/APAP/Caff 50-325-40Mg 1 tab PO Q6H 06/30/20 09/01/21 History [Fioricet 50-325-40] buPROPion XL [Wellbutrin XL] 150 mg PO DAILY 11/04/20 09/01/21 History buPROPion XL [Wellbutrin XL] 300 mg PO DAILY 02/20/21 09/01/21 History Albuterol Sulfate [Albuterol 2 puff INHALATION RT-Q6H PRN 04/07/21 09/01/21 History Sulfate Hfa] Budesonide/Formoterol Fumarate 2 puff INHALATION RT-BID 04/07/21 09/01/21 History [Symbicort 160-4.5 Mcg Inhaler] Aspirin EC [Ecotrin Low Dose] 81 mg PO DAILY 05/12/21 09/01/21 History Levothyroxine Sodium [Synthroid] 100 mcg PO DAILY@0630 30 Days #30 06/19/21 09/01/21 Rx tab Furosemide [Lasix] 20 mg PO DAILY PRN 08/08/21 09/01/21 History HYDROmorphone [Dilaudid] 2 mg PO Q6H PRN 08/08/21 09/01/21 History Omeprazole 20 mg PO DAILY 08/08/21 09/01/21 History hydrOXYzine pamoate [Vistaril] 100 mg PO TID 08/08/21 09/01/21 History polyethylene glycoL 3350 [Miralax] 17 gm PO DAILY PRN 08/08/21 09/01/21 History Sodium Bicarbonate Tab 650 mg PO DAILY 30 Days #30 tab 08/21/21 09/01/21 Rx Methadone [Dolophine] 10 mg PO DAILY@1600 09/01/21 09/01/21 History Methadone [Dolophine] 20 mg PO DAILY 09/01/21 09/01/21 History Mirtazapine [Remeron] 45 mg PO HS 09/01/21 09/01/21 History Naloxone HCl [Narcan] 4 mg NASAL ONCE PRN 09/01/21 09/01/21 History Ondansetron [Zofran] 4 mg PO Q6H PRN 09/01/21 09/01/21 History Allergies Allergy/AdvReac Type Severity Reaction Status Date / Time mold Allergy Itching Verified 09/01/21 19:35 denosumab [From Prolia] AdvReac SEVERE Verified 09/01/21 19:35 CALCIUM LOSS morphine AdvReac Confusion Verified 09/01/21 19:35 DUST Allergy Itching Uncoded 09/01/21 19:35 Physical Exam Vitals: Vital Signs Temp Pulse Resp BP Pulse Ox 09/02/21 07:31 100 09/02/21 06:35 92 18 139/74 100 09/02/21 05:00 104 H 18 139/83 99 09/02/21 04:00 106 H 18 146/74 99 09/02/21 03:00 105 H 18 134/68 99 09/02/21 00:00 109 H 18 141/59 99 09/01/21 22:00 110 H 16 134/76 97 09/01/21 20:00 97 20 126/62 100 09/01/21 17:59 103 H 18 138/88 98 09/01/21 14:15 97.8 F 113 H 18 119/69 98 In general patient is alert and oriented ?-3 in no distress HEENT head normocephalic and atraumatic Neck is supple no JVD no goiter no lymphadenopathy no carotid bruit Chest examination reveals a scattered crackles bilaterally Cardiac exam reveals regular heart sounds S1 and S2 no gallops no murmurs Abdomen is soft nontender no organomegaly with normal bowel sounds Extremity exam reveals no edema no cyanosis or clubbing Neurological examination reveals no gross focal deficits Results CBC & Chem 7: 09/01/21 16:54 09/02/21 13:56 Labs: Abnormal Lab Results - Last 24 Hours (Table) 09/01/21 09/01/21 09/01/21 Range/Units 16:54 16:54 21:14 WBC 16.9 H (3.8-10.6) k/uL MCHC 30.1 L (31.0-37.0) g/dL RDW 17.0 H (11.5-15.5) % Plt Count 564 H (150-450) k/uL Neutrophils # 15.2 H (1.3-7.7) k/uL Lymphocytes # 0.9 L (1.0-4.8) k/uL Carbon Dioxide 18 L (22-30) mmol/L BUN 38 H (7-17) mg/dL Creatinine 1.77 H (0.52-1.04) mg/dL Glucose 72 L (74-99) mg/dL ALT 36 H (4-34) U/L Alkaline Phosphatase 321 H (38-126) U/L C-Reactive Protein 15.5 H (<1.0) mg/dL Urine Protein (Negative) Urine Ketones (Negative) Ur Leukocyte Esterase (Negative) Urine WBC (0-5) /hpf Urine Bacteria (None) /hpf Hyaline Casts (0-2) /lpf Urine Mucus (None) /hpf 09/02/21 Range/Units 01:33 WBC (3.8-10.6) k/uL MCHC (31.0-37.0) g/dL RDW (11.5-15.5) % Plt Count (150-450) k/uL Neutrophils # (1.3-7.7) k/uL Lymphocytes # (1.0-4.8) k/uL Carbon Dioxide (22-30) mmol/L BUN (7-17) mg/dL Creatinine (0.52-1.04) mg/dL Glucose (74-99) mg/dL ALT (4-34) U/L Alkaline Phosphatase (38-126) U/L C-Reactive Protein (<1.0) mg/dL Urine Protein 1+ H (Negative) Urine Ketones 1+ H (Negative) Ur Leukocyte Esterase Small H (Negative) Urine WBC 13 H (0-5) /hpf Urine Bacteria Many H (None) /hpf Hyaline Casts 3 H (0-2) /lpf Urine Mucus Occasional H (None) /hpf Assessment and Plan Plan: Pneumonia, possibly related to aspiration Acute kidney injury Failure to thrive patient is maintained on TPN, she has a known history of gastrectomy in the past Recent fall at home, no evidence of injury on CT scan of the brain and cervical spine and left hip x-ray done in the emergency room Underlying history of hypothyroidism Underlying history of spinal stenosis with chronic back pain Underlying history of chronic kidney disease Known history of CVA in the past Underlying history of depression and anxiety disorder At this time patient is admitted to medical floor Home medications reviewed and reordered She was started on IV hydration and IV antibiotics Continue was TPN Pulmonary consultation requested For DVT prophylaxis we will use Lovenox Will follow closely
[2021-09-02 18:17] LABS: Glucose,Whole Blood 218 mg/dL (75-99)
[2021-09-02] MEDS: INSULIN ASPART (NovoLOG) 100 UNIT/ML VIAL SQ SCH ×2 (18:23→23:47)
[2021-09-02] MEDS: MIRTAZAPINE 45 MG TABLET PO SCH ×2 (20:42→20:43)
[2021-09-02] MEDS ORDERED: AZITHROMYCIN 500 MG TAB PO SCH (21:00)
[2021-09-02 23:47] LABS: Glucose,Whole Blood 135 mg/dL (75-99)
[2021-09-03] MEDS: SODIUM CHLORIDE 0.9% 1,000 ML IV SCH ×3 (01:37→21:14)
[2021-09-03] MEDS: BUTALB/APAP/CAFF 50-325-40MG TAB PO SCH ×4 (02:41→20:07)
[2021-09-03] MEDS: LEVOTHYROXINE 100 MCG TAB PO SCH (05:44)
[2021-09-03 05:45] LABS: Glucose,Whole Blood 127 mg/dL (75-99)
[2021-09-03] MEDS: INSULIN ASPART (NovoLOG) 100 UNIT/ML VIAL SQ SCH ×4 (05:45→23:47)
[2021-09-03 06:11] LABS: Ionized Calcium 5.1 mg/dL (4.5-5.3)
[2021-09-03 06:16] LABS: ALT 24 U/L (4-34); AST 24 U/L (14-36); African American GFR (CKD) 48 (>60 ml/min/1.73 sqM); Albumin 2.9 g/dL (3.5-5.0); Alkaline Phosphatase 221 U/L (38-126); Anion Gap 8 mmol/L; Blood Urea Nitrogen 31 mg/dL (7-17); Carbon Dioxide 19 mmol/L (22-30); Chloride 110 mmol/L (98-107); Globulin 2.8 g/dL; Glucose 118 mg/dL (74-99); Magnesium 1.8 mg/dL (1.6-2.3); Non-African American GFR(CKD) 42 (>60 ml/min/1.73 sqM); Phosphorus 3.1 mg/dL (2.5-4.5); Potassium 3.3 mmol/L (3.5-5.1); Sodium 137 mmol/L (137-145); Total Bilirubin 0.2 mg/dL (0.2-1.3); Total Protein 5.7 g/dL (6.3-8.2)
[2021-09-03] MEDS: SYMBICORT 160-4.5 MCG INHALER INHALATION SCH ×2 (07:59→21:36)
[2021-09-03] MEDS: busPIRone HCl 10 MG TAB PO SCH ×2 (08:07→20:08)
[2021-09-03] MEDS: ASPIRIN 81 MG PO SCH (08:07)
[2021-09-03] MEDS: SODIUM BICARBONATE TAB 650 MG TAB PO SCH (08:07)
[2021-09-03] MEDS: ENOXAPARIN 30 MG/0.3 ML SYRINGE SQ SCH (08:07)
[2021-09-03] MEDS: hydrOXYzine pamoate 25 MG CAP PO SCH ×3 (08:07→21:12)
[2021-09-03] MEDS: PANTOPRAZOLE 40 MG TABLET PO SCH (08:07)
[2021-09-03] MEDS: METHADONE 10 MG TAB PO SCH ×2 (08:07→16:36)
--- NOTE | 2021-09-03 09:35 | CDI ---
Documentation Clarification Form Date: 09/03/2021 08:55:45 AM From: Nancy Wilson RN CCDS Admit Date: 09/01/2021 08:30:00 PM Patient Name: Louise Sutton Visit Number: [id number] Discharge Date: ATTENTION: The Clinical Documentation Specialists (CDI) and [facility] Coding Staff appreciate your assistance in clarifying documentation. Please respond to the clarification below the line at the bottom and electronically sign. The CDI & [facility] Coding staff will review the response and follow-up if needed. Please note: Queries are made part of the Legal Health Record. If you have any questions, please contact the author of this message via ITS. Dr. Palmer Desir Sepsis is documented ED note, 09/01, but is not noted in subsequent documentation. Clarification is requested. History/Risk Factors: 76-year-old female presents to the ED with fatigue, cough, and yellow greenish phlegm. Medical History: Asthma, COPD and Aspiration pneumonia. 09/02, H&P. Clinical Indicators: VSS: 09/01 B/P 119/69; HR 113; Temp 97.8 F Oral, RR 18, SpO2 98% room air LABS: 09/01 Wbc 16.9, PLT 564, Neutrophils 15.2, BUN 38, CR 1.77, ALT 36, Alk Phos 321, CRP 15.5. CXR: 09/01 Patchy areas of airspace consolidation in the midlung calixto. Treatment: 09/01 0.9NS 500cc bolus x 1; 09/01 current 0.9NS 100cc/hr; 09/01 Ceftriaxone Sodium 2gm IVPB x 1; 09/02 Ceftriaxone Sodium 2gm IVPB x 4 bags; 09/01 Azithromycin 500mg IVPB x 1; 09/02 Azithromycin 500mg PO HS x 2 doses. Please clarify if the Sepsis is: [ xxx ] Sepsis confirmed, remains under treatment [ ] Sepsis confirmed, resolved [ ] Sepsis ruled out [ ] Other condition, please specify [ ] Unable to determine (Template Last Revised: June 2020) MTDD
--- NOTE | 2021-09-03 10:11 | CDI ---
Documentation Clarification Form Date: 09/03/2021 09:38:32 AM From: Nancy Wilson RN CCDS Admit Date: 09/01/2021 08:30:00 PM Patient Name: Louise Sutton Visit Number: [id number] Discharge Date: ATTENTION: The Clinical Documentation Specialists (CDI) and [facility] Coding Staff appreciate your assistance in clarifying documentation. Please respond to the clarification below the line at the bottom and electronically sign. The CDI & [facility] Coding staff will review the response and follow-up if needed. Please note: Queries are made part of the Legal Health Record. If you have any questions, please contact the author of this message via ITS. Dr. Palmer Desir Protein calorie malnutrition is documented 09/02, H&P. Additional clarification regarding the severity of malnutrition is requested. History/Risk Factors: 76-year-old female presents to the ED with fatigue, cough, and yellow greenish phlegm. Medical History: Asthma, COPD, Aspiration pneumonia, Malnutrition and failure to thrive, recurrent aspiration patient is currently on TPN for nutritional support in addition to some oral feedings on soft diet. 09/02, H&P. Clinical Indicators: 09/02, H&P: Failure to thrive patient is maintained on TPN. 09/02, Pulmonary Consult: Malnutrition and failure to thrive. Current BMI: 15.4kg Dietary Consult : Severe malnutrition in setting of chronic illness. Related to: Suboptimal PO intake 2/ complete TPN reliance. As evidenced by: Severe muscle/fat loss (temporalis/buccal/deltoids/pectoralis). TPN is meeting 100% of kcal / protein needs for patient. 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 Treatment: Monitoring PO intake, Monitoring and administrating TPN/LOCKSTITCH WAISTLINE JOINER. Dietary Consult: See above Supplements: PPN/TPN: 09/03 to current Amino Ac/Electrol/Dextrose/Calcium Clinimix E 5/5-20% Solution 50mls/hr IV; 09/02 to current Fat Emulsion Intravenous 500ml in IV solution 42mls/hr IV Mo [facility]; 09/02 current Parenteral Vitamin Supplement 10ml/ Zinc/Copper/Manganese/Selenium 1ml in Amino Ac/Electrol/Dextrose/Calcium 30mls/hr. Lab monitoring: Electrolytes. Please clarify the type of malnutrition, if known: [ xxx ] Severe Protein-Calorie Malnutrition [ ] Other condition, please specify [ ] Unable to Determine (Template Last Revised: June 2020) MTDD
[2021-09-03] MEDS: buPROPion XL 150 MG TAB.ER.24H PO SCH ×2 (10:58→11:54)
[2021-09-03 11:13] LABS: HGB 10.2 gm/dL (11.4-16.0); RBC 3.71 m/uL (3.80-5.40); WBC 13.5 k/uL (3.8-10.6)
[2021-09-03 11:14] LABS: Anisocytosis Slight; HCT 34.3 % (34.0-46.0); Hypochromasia Moderate; MCH 27.4 pg (25.0-35.0); MCHC 29.6 g/dL (31.0-37.0); MCV 92.3 fL (80.0-100.0); Mean Platelet Volume 6.9; Platelet Count 480 k/uL (150-450); RDW 16.4 % (11.5-15.5)
[2021-09-03 11:35] LABS: Glucose,Whole Blood 95 mg/dL (75-99)
[2021-09-03] MEDS: HYDROmorphone 2 MG TAB PO PRN ×3 (11:53→23:47)
[2021-09-03] MEDS: FERROUS SULFATE 325 MG TAB PO SCH (11:53)
[2021-09-03] MEDS: PIPERACILLIN-TAZOBACTAM 3.375 GM in SODIUM CHLORIDE 0.9% 100 ML IVPB SCH ×2 (11:54→21:12)
[2021-09-03 11:58] LABS: Basophils # (A) 0.08 X 10*3/uL (0.00-0.10); Basophils % (A) 0.6 %; Eosinophils # (A) 0.49 X 10*3/uL (0.04-0.35); Eosinophils % (A) 3.6 %; HGB 9.4 g/dL (12.0-15.0); Lymphocytes # (A) 1.49 X 10*3/uL (0.90-5.00); Lymphocytes % (A) 10.9 %; MCH 27.2 pg (27.0-32.0); MCHC 31.3 g/dL (32.0-37.0); MCV 86.7 fL (80.0-97.0); Mean Platelet Volume 10.1 fL (9.5-12.2); Monocytes # (A) 1.09 X 10*3/uL (0.20-1.00); NRBC Per 100 WBC 0 /100 WBCS (0.0-0.0); Neutrophils # (A) 10.34 X 10*3/uL (1.80-7.70); Neutrophils % (A) 75.9 %; Platelet Count 356 X 10*3/uL (140-440); RBC 3.46 X 10*6/uL (4.10-5.20); RDW 16.4 % (11.5-14.5); WBC 13.62 X 10*3/uL (4.50-10.00)
--- NOTE | 2021-09-03 12:06 | P.PN ---
Subjective Progress Note Date: 09/03/21 Principal diagnosis: Falls, cough, chronic aspiration This is a 76-year-old white female patient who is well-known to our service from multiple hospitalizations for recurrent aspiration pneumonia. Patient had a history of previous gastrectomy, chronic dysphagia, recurrent aspiration pneumonia, chronic malnutrition and failure to thrive, patient is maintained on TPN in addition to a soft diet by mouth. Patient also has history of chronic kidney disease stage III, hypothyroidism, migraine headaches, chronic pain syndrome, history of CVA, and history of PICC line infection and sepsis. Patient came into the emergency department on 09/01/2021 for evaluation of a fall, and pain in left hip, bilateral shoulders, and patient apparently bumped her head in the fall as well. She had a recent adjustment of her methadone dose which was increased to 20 mg in the morning and 10 mg at night and the dose increased made her fatigued and lightheaded. She reports coughing up some green colored phlegm, no hemoptysis, no chest discomfort. Her chest x-ray showing bilateral airspace consolidation which had increased since her last chest x-ray from 08/08/2021. X-ray of the left hip showed left hip prosthesis, no fracture or dislocation. X-ray of the pelvis showed no acute abnormality of the pelvis, no fracture. CT of the brain and cervical spine was completed showing no acute intracranial abnormality, and mild degenerative hypertrophic changes in the cervical spine, no fracture. There were nodular infiltrates at the lung apices there were also seen on CT from 01/28/2021. Room air pulse ox in the 100%, afebrile, hemodynamics stable. Admission labs have been reviewed showing white blood cell count of 16.9, hemoglobin 12.2, sodium of 141, potassium is 4.2, CO2 was 18, BUN was 38, creatinine is 1.7, CRP was elevated at 15.5, lipase was normal at 75, troponin was less than 0.012, alkaline phosphatase was 321, ALT was 36, and AST was 27, urinalysis showed mildly increased white blood cells at 13, 1+ ketones, small amount of leukocyte esterase, she tested negative for COVID 19, influenza A and B. On 09/03/2021 patient seen in follow-up on medical surgical floor, she is breathing comfortably, only occasional cough, no chest discomfort. No hemoptysis, no phlegm production. No wheezing, lung sounds are clear, diminished at the bases, no rhonchi or crackles noted. Room air pulse ox is 98%, afebrile. Today's labs have been reviewed, white blood cell count is 13.5, hemoglobin is 10.2, sodium is 137, potassium 3.3, CO2 is 19, BUN is 31, and creatinine is 1.26, renal function is improving. Pro-calcitonin level was 0.28. Patient remains on azithromycin and Rocephin for possibility of aspiration related pneumonia. She is tolerating soft diet in the form of pudding, she continues on TPN which is running at 30 ML per hour, and IV hydration with 20#. A 50 ML per hour Objective - Vital Signs Vital signs: Vital Signs Temp 98.6 F 09/03/21 07:52 Pulse 87 09/03/21 07:52 Resp 19 09/03/21 07:52 BP 135/73 09/03/21 07:52 Pulse Ox 98 09/03/21 07:52 Intake & Output 09/02/21 09/03/21 09/03/21 18:59 06:59 18:59 Intake Total 900 Balance 900 Weight 38.102 kg Intake: IV 800 Sodium Chloride 0.9% 1, 800 000 ml @ 100 mls/hr IV . Q10H [facility] Rx#:[id number] Intake, IV Titration 100 Amount Amino Acid 5%-D20w+Lytes* 50 E* 1,000 ml @ 50 mls/hr IV .BY DURATION [facility] Rx#: [id number] Mvi, Adult No.4 with Vit 50 K 10 ml Trace (Conc-1Ml/ Dose) 1 ml In Amino Acid 5%-D20w+Lytes*E* 1,000 ml @ 50 mls/hr IV .BY DURATION [facility] Rx#: [id number] Other: # Voids 2 1 - Exam GENERAL EXAM: Alert, very pleasant, 76-year-old white female, cachectic, but appears to be in no acute distress, on room air comfortable in no apparent distress. HEAD: Normocephalic/atraumatic. EYES: Normal reaction of pupils, equal size. Conjunctiva pink, sclera white. NOSE: Clear with pink turbinates. THROAT: No erythema or exudates. NECK: No masses, no JVD, no thyroid enlargement, no adenopathy. CHEST: No chest wall deformity. Symmetrical expansion. LUNGS: Equal air entry with no crackles, wheeze, rhonchi or dullness. CVS: Regular rate and rhythm, normal S1 and S2, no gallops, no murmurs, no rubs ABDOMEN: Soft, nontender. No hepatosplenomegaly, normal bowel sounds, no guarding or rigidity. EXTREMITIES: No clubbing, no edema, no cyanosis, 2+ pulses and upper and lower extremities. MUSCULOSKELETAL: Muscle strength and tone normal. SPINE: No scoliosis or deformity SKIN: No rashes CENTRAL NERVOUS SYSTEM: Alert and oriented -3. No focal deficits, tone is normal in all 4 extremities. PSYCHIATRIC: Alert and oriented -3. Appropriate affect. Intact judgment and insight. - Labs CBC & Chem 7: 09/03/21 10:40 09/03/21 04:48 Labs: Abnormal Lab Results - Last 24 Hours (Table) 09/02/21 09/02/21 09/02/21 Range/Units 13:56 13:56 18:14 WBC (4.50-10.00) X 10*3/uL RBC (4.10-5.20) X 10*6/uL Hgb (12.0-15.0) g/dL Hct (37.2-46.3) % MCHC (32.0-37.0) g/dL RDW (11.5-14.5) % Plt Count (150-450) k/uL Immature Gran # (0.00-0.04) X 10*3/uL Neutrophils # (1.80-7.70) X 10*3/uL Monocytes # (0.20-1.00) X 10*3/uL Eosinophils # (0.04-0.35) X 10*3/uL Immature Plt Fraction (1.1-6.1) % Potassium (3.5-5.1) mmol/L Chloride (98-107) mmol/L Carbon Dioxide 19 L (22-30) mmol/L BUN 38 H (7-17) mg/dL Creatinine 1.58 H (0.52-1.04) mg/dL Glucose 112 H (74-99) mg/dL POC Glucose (mg/dL) 218 H (75-99) mg/dL Calcium (8.4-10.2) mg/dL Alkaline Phosphatase 302 H (38-126) U/L Total Protein (6.3-8.2) g/dL Albumin (3.5-5.0) g/dL Triglycerides 286.00 H (0.00-149.00) mg/dL Procalcitonin 0.28 H (0.02-0.09) ng/mL 09/02/21 09/03/21 09/03/21 Range/Units 23:46 04:48 04:48 WBC 13.62 H (4.50-10.00) X 10*3/uL RBC 3.46 L (4.10-5.20) X 10*6/uL Hgb 9.4 L (12.0-15.0) g/dL Hct 30.0 L (37.2-46.3) % MCHC 31.3 L (32.0-37.0) g/dL RDW 16.4 H (11.5-14.5) % Plt Count (150-450) k/uL Immature Gran # 0.13 H (0.00-0.04) X 10*3/uL Neutrophils # 10.34 H (1.80-7.70) X 10*3/uL Monocytes # 1.09 H (0.20-1.00) X 10*3/uL Eosinophils # 0.49 H (0.04-0.35) X 10*3/uL Immature Plt Fraction 1.0 L (1.1-6.1) % Potassium 3.3 L (3.5-5.1) mmol/L Chloride 110 H (98-107) mmol/L Carbon Dioxide 19 L (22-30) mmol/L BUN 31 H (7-17) mg/dL Creatinine 1.26 H (0.52-1.04) mg/dL Glucose 118 H (74-99) mg/dL POC Glucose (mg/dL) 135 H (75-99) mg/dL Calcium 8.0 L (8.4-10.2) mg/dL Alkaline Phosphatase 221 H (38-126) U/L Total Protein 5.7 L (6.3-8.2) g/dL Albumin 2.9 L (3.5-5.0) g/dL Triglycerides (0.00-149.00) mg/dL Procalcitonin (0.02-0.09) ng/mL 09/03/21 09/03/21 Range/Units 05:43 10:40 WBC 13.5 H (4.50-10.00) X 10*3/uL RBC 3.71 L (4.10-5.20) X 10*6/uL Hgb 10.2 L (12.0-15.0) g/dL Hct (37.2-46.3) % MCHC 29.6 L (32.0-37.0) g/dL RDW 16.4 H (11.5-14.5) % Plt Count 480 H (150-450) k/uL Immature Gran # (0.00-0.04) X 10*3/uL Neutrophils # (1.80-7.70) X 10*3/uL Monocytes # (0.20-1.00) X 10*3/uL Eosinophils # (0.04-0.35) X 10*3/uL Immature Plt Fraction (1.1-6.1) % Potassium (3.5-5.1) mmol/L Chloride (98-107) mmol/L Carbon Dioxide (22-30) mmol/L BUN (7-17) mg/dL Creatinine (0.52-1.04) mg/dL Glucose (74-99) mg/dL POC Glucose (mg/dL) 127 H (75-99) mg/dL Calcium (8.4-10.2) mg/dL Alkaline Phosphatase (38-126) U/L Total Protein (6.3-8.2) g/dL Albumin (3.5-5.0) g/dL Triglycerides (0.00-149.00) mg/dL Procalcitonin (0.02-0.09) ng/mL Microbiology - Last 24 Hours (Table) 09/01/21 18:56 Blood Culture - Preliminary Blood No Growth after 24 hours 09/01/21 18:41 Blood Culture - Preliminary Blood No Growth after 24 hours 09/02/21 01:33 Urine Culture - Preliminary Urine,Voided Assessment and Plan Plan: Assessment: #1. Dyspnea, cough related to recurrent aspiration, with the possibility of recurrent aspiration related pneumonia #2. Fall at home, following methadone dose increase, CT of the brain, cervical spine, left hip and pelvis showed no acute findings, no acute fracture or dislocation #3. Acute kidney injury, related to ATN, improving #4. Chronic kidney disease stage III at baseline #5. Malnutrition and failure to thrive #6. Recurrent aspiration with multiple hospitalizations, patient is currently on TPN for nutritional support in addition to some oral feedings on soft diet #7. History of gastrectomy #8. Recent hospitalization for urinary tract infection, related to enterococcus faecalis #9. Chronic pain syndrome #10. Previous history of CVA #11. History of hypothyroidism #12. History of spinal stenosis and chronic back pain #13. History of chronic anemia of chronic disease #14. Anxiety/depression Plan: No acute distress noted Clinically the patient appears to be quite comfortable, she is on room air, she's been afebrile We'll switch antibiotic coverage to Zosyn Continue TPN Maintain aspiration precautions with oral feedings We'll continue to follow I have personally seen and examined the patient, performed the documentation and the assessment and plan as written. Number of minutes spent on the visit: [15] Time with Patient: Less than 30
[2021-09-03] MEDS: POTASSIUM CHLORIDE 20 MEQ in WATER FOR INJECTION 1 100ML.BAG IVPB SCH ×2 (16:37→19:07)
[2021-09-03 16:46] LABS: Glucose,Whole Blood 118 mg/dL (75-99)
[2021-09-03] MEDS: IPRATROPIUM-ALBUTEROL 3 ML NEB INHALATION PRN (16:54)
[2021-09-03] MEDS: 1: AMINO ACID 5%-D20W+LYTES*E* 1,000 ML 2: MVI, ADULT NO.4 WITH VIT K 10 ML, TRACE (CON IV SCH ×3 (17:50)
[2021-09-03] MEDS: MAGNESIUM SULFATE-D5W PMX 1 GM in DEXTROSE/WATER 1 100ML.BAG IVPB SCH ×2 (18:00→19:08)
--- NOTE | 2021-09-03 19:17 | P.PN ---
Subjective Progress Note Date: 09/03/21 Louise Sutton, is a 76-year-old female who presented to [facility] emergency room with a chief complaint of fatigue and cough of yellow greenish phlegm. She was evaluated in the emergency room vital examination on presentation revealed a temperature of 97.8 pulse 113 respiration 18 and blood pressure 119/69 pulse ox 98% on room air Laboratory data revealed a white blood count of 16.9 hemoglobin 12.2 platelet count 564 BUN 38 creatinine 1.77 Testing in the emergency room revealed chest x-ray done in the emergency room revealed bilateral infiltrate suggestive of pneumonia Patient was admitted to medical floor for further evaluation and treatment Past medical history is significant for history of gastrectomy, history of failure to thrive maintained on TPN, history of recurrent reflux with recurrent aspiration pneumonia, history of chronic kidney disease previous history of stroke history of hypothyroidism history of spinal stenosis with chronic back pain. On 09/04/2019 2H and was seen and examined on the medical floor she is alert and oriented 3 in no apparent distress she is still complaining of occasional cough and shortness of breath with activity, today she is also complaining of pain and burning sensation in the epigastric area, otherwise she denies any complaints there is no fever or chills no headache or dizziness no chest pain no nausea or vomiting no diarrhea and no urinary symptoms Objective - Vital Signs Vital signs: Vital Signs Temp 98.6 F 09/03/21 07:52 Pulse 87 09/03/21 07:52 Resp 19 09/03/21 07:52 BP 135/73 09/03/21 07:52 Pulse Ox 98 09/03/21 07:52 Intake & Output 09/02/21 09/03/21 09/03/21 18:59 06:59 18:59 Intake Total 900 Balance 900 Weight 38.102 kg Intake: IV 800 Sodium Chloride 0.9% 1, 800 000 ml @ 100 mls/hr IV . Q10H [facility] Rx#:[id number] Intake, IV Titration 100 Amount Amino Acid 5%-D20w+Lytes* 50 E* 1,000 ml @ 50 mls/hr IV .BY DURATION [facility] Rx#: [id number] Mvi, Adult No.4 with Vit 50 K 10 ml Trace (Conc-1Ml/ Dose) 1 ml In Amino Acid 5%-D20w+Lytes*E* 1,000 ml @ 50 mls/hr IV .BY DURATION [facility] Rx#: [id number] Other: # Voids 2 1 - Exam In general patient is alert and oriented ?-3 in no distress HEENT head normocephalic and atraumatic Neck is supple no JVD no goiter no lymphadenopathy no carotid bruit Chest examination reveals a scattered crackles bilaterally Cardiac exam reveals regular heart sounds S1 and S2 no gallops no murmurs Abdomen is soft nontender no organomegaly with normal bowel sounds Extremity exam reveals no edema no cyanosis or clubbing Neurological examination reveals no gross focal deficits - Labs CBC & Chem 7: 09/03/21 10:40 09/03/21 04:48 Labs: Abnormal Lab Results - Last 24 Hours (Table) 09/02/21 09/02/21 09/02/21 Range/Units 13:56 13:56 18:14 Potassium (3.5-5.1) mmol/L Chloride (98-107) mmol/L Carbon Dioxide 19 L (22-30) mmol/L BUN 38 H (7-17) mg/dL Creatinine 1.58 H (0.52-1.04) mg/dL Glucose 112 H (74-99) mg/dL POC Glucose (mg/dL) 218 H (75-99) mg/dL Calcium (8.4-10.2) mg/dL Alkaline Phosphatase 302 H (38-126) U/L Total Protein (6.3-8.2) g/dL Albumin (3.5-5.0) g/dL Triglycerides 286.00 H (0.00-149.00) mg/dL Procalcitonin 0.28 H (0.02-0.09) ng/mL 09/02/21 09/03/21 09/03/21 Range/Units 23:46 04:48 05:43 Potassium 3.3 L (3.5-5.1) mmol/L Chloride 110 H (98-107) mmol/L Carbon Dioxide 19 L (22-30) mmol/L BUN 31 H (7-17) mg/dL Creatinine 1.26 H (0.52-1.04) mg/dL Glucose 118 H (74-99) mg/dL POC Glucose (mg/dL) 135 H 127 H (75-99) mg/dL Calcium 8.0 L (8.4-10.2) mg/dL Alkaline Phosphatase 221 H (38-126) U/L Total Protein 5.7 L (6.3-8.2) g/dL Albumin 2.9 L (3.5-5.0) g/dL Triglycerides (0.00-149.00) mg/dL Procalcitonin (0.02-0.09) ng/mL Microbiology - Last 24 Hours (Table) 09/01/21 18:56 Blood Culture - Preliminary Blood No Growth after 24 hours 09/01/21 18:41 Blood Culture - Preliminary Blood No Growth after 24 hours 09/02/21 01:33 Urine Culture - Preliminary Urine,Voided Assessment and Plan Plan: Pneumonia, possibly related to aspiration Acute kidney injury Failure to thrive patient is maintained on TPN, she has a known history of gastrectomy in the past Recent fall at home, no evidence of injury on CT scan of the brain and cervical spine and left hip x-ray done in the emergency room Underlying history of hypothyroidism Underlying history of spinal stenosis with chronic back pain Underlying history of chronic kidney disease Known history of CVA in the past Underlying history of depression and anxiety disorder Pain and burning sensation in the epigastric area will check amylase and lipase and check abdomen ultrasound At this time patient is admitted to medical floor Home medications reviewed and reordered She was started on IV hydration and IV antibiotics Continue was TPN Pulmonary consultation requested For DVT prophylaxis we will use Lovenox Will follow closely
[2021-09-03] MEDS ORDERED: Potassium Replacement Protocol 1 EACH MISC MISCELLANE PRN (19:19)
[2021-09-03] MEDS: MIRTAZAPINE 45 MG TABLET PO SCH (20:07)
[2021-09-03 23:47] LABS: Glucose,Whole Blood 129 mg/dL (75-99)
[2021-09-04] MEDS: BUTALB/APAP/CAFF 50-325-40MG TAB PO SCH ×4 (01:56→19:47)
[2021-09-04 03:54] LABS: Amylase 79 U/L (23-121); Lipase 58 U/L (14-63)
[2021-09-04] MEDS: PIPERACILLIN-TAZOBACTAM 3.375 GM in SODIUM CHLORIDE 0.9% 100 ML IVPB SCH ×3 (03:57→21:33)
[2021-09-04 05:35] LABS: Glucose,Whole Blood 116 mg/dL (75-99)
[2021-09-04] MEDS: INSULIN ASPART (NovoLOG) 100 UNIT/ML VIAL SQ SCH ×3 (05:35→17:42)
[2021-09-04] MEDS: SODIUM CHLORIDE 0.9% 1,000 ML IV SCH ×2 (05:36→15:55)
[2021-09-04] MEDS: LEVOTHYROXINE 100 MCG TAB PO SCH ×2 (05:36→07:48)
[2021-09-04] MEDS: HYDROmorphone 2 MG TAB PO PRN ×3 (06:04→18:25)
[2021-09-04] MEDS: hydrOXYzine pamoate 25 MG CAP PO SCH ×3 (07:46→21:51)
[2021-09-04] MEDS: METHADONE 10 MG TAB PO SCH ×2 (07:47→15:54)
[2021-09-04] MEDS: ASPIRIN 81 MG PO SCH (07:48)
[2021-09-04] MEDS: busPIRone HCl 10 MG TAB PO SCH ×2 (07:48→21:51)
[2021-09-04] MEDS: FERROUS SULFATE 325 MG TAB PO SCH (07:48)
[2021-09-04] MEDS: SODIUM BICARBONATE TAB 650 MG TAB PO SCH (07:49)
[2021-09-04] MEDS: PANTOPRAZOLE 40 MG TABLET PO SCH (07:49)
[2021-09-04] MEDS: ENOXAPARIN 30 MG/0.3 ML SYRINGE SQ SCH ×2 (07:49→07:52)
[2021-09-04] MEDS: buPROPion XL 150 MG TAB.ER.24H PO SCH (08:02)
[2021-09-04] MEDS: ONDANSETRON 4 MG TAB PO PRN (08:07)
[2021-09-04] MEDS: SYMBICORT 160-4.5 MCG INHALER INHALATION SCH ×2 (08:25→20:00)
[2021-09-04] MEDS: IPRATROPIUM-ALBUTEROL 3 ML NEB INHALATION PRN (08:31)
[2021-09-04 09:05] LABS: Basophils # (A) 0.07 X 10*3/uL (0.00-0.10); Basophils % (A) 0.6 %; Eosinophils # (A) 0.53 X 10*3/uL (0.04-0.35); Eosinophils % (A) 4.8 %; HCT 29.5 % (37.2-46.3); Immature Grans, Automated 1.3 %; Lymphocytes # (A) 1.28 X 10*3/uL (0.90-5.00); Lymphocytes % (A) 11.5 %; MCHC 30.5 g/dL (32.0-37.0); MCV 88.6 fL (80.0-97.0); Monocytes # (A) 1.27 X 10*3/uL (0.20-1.00); Monocytes % (A) 11.4 %; NRBC Per 100 WBC 0 /100 WBCS (0.0-0.0); Neutrophils # (A) 7.83 X 10*3/uL (1.80-7.70); Neutrophils % (A) 70.4 %; Platelet Count 401 X 10*3/uL (140-440); RBC 3.33 X 10*6/uL (4.10-5.20); RDW 16.6 % (11.5-14.5); WBC 11.12 X 10*3/uL (4.50-10.00)
--- NOTE | 2021-09-04 10:16 | US ---
EXAMINATION TYPE: US abdomen complete DATE OF EXAM: 09/04/2021 COMPARISON: US 2021 CLINICAL HISTORY: epigastric pain. Exam done portable EXAM MEASUREMENTS: Liver Length: 15.8 cm Gallbladder Wall: 0.2 cm CBD: 0.2 cm Spleen: 9.8 cm Right Kidney: 7.1 x 3.2 x 3.0 cm Left Kidney: 8.6 x 4.5 x 4.0 cm Pancreas: visualized portions wnl, duct seen measuring 0.2cm Liver: wnl Gallbladder: wnl Evidence for sonographic Almaguer's sign: no CBD: wnl Spleen: wnl Right Kidney: small in size, inferior pole limited by overlying bowel gas Left Kidney: small in size Upper IVC: wnl Abd Aorta: wnl IMPRESSION: 1. No acute abdomen ultrasound abnormality.
[2021-09-04 10:19] LABS: ALT 22 U/L (8-44); AST 15 U/L (13-35); African American GFR (CKD) 51.6 (60.0-200.0); Albumin/Globulin Ratio 1.36 (1.60-3.17); Alkaline Phosphatase 202 U/L (41-126); BUN/Creat Ratio 22.83 Ratio (12.00-20.00); Blood Urea Nitrogen 27.4 mg/dL (9.0-27.0); Calcium 8.1 mg/dL (8.7-10.3); Carbon Dioxide 16.3 mmol/L (20.0-27.5); Chloride 109 mmol/L (96-109); Globulin 2.2 g/dL (1.6-3.3); Glucose 95 mg/dL (70-110); Magnesium 2.4 mg/dL (1.5-2.4); Non-African American GFR(CKD) 44.5 (60.0-200.0); Phosphorus 2.5 mg/dL (2.4-5.1); Potassium 4.3 mmol/L (3.5-5.5); Sodium 137 mmol/L (135-145); Total Bilirubin <0.15 mg/dL (0.30-1.20); Total Protein 5.2 g/dL (6.2-8.2)
--- NOTE | 2021-09-04 10:35 | P.PN ---
Subjective Progress Note Date: 09/04/21 Louise Sutton, is a 76-year-old female who presented to [facility] emergency room with a chief complaint of fatigue and cough of yellow greenish phlegm. She was evaluated in the emergency room vital examination on presentation revealed a temperature of 97.8 pulse 113 respiration 18 and blood pressure 119/69 pulse ox 98% on room air Laboratory data revealed a white blood count of 16.9 hemoglobin 12.2 platelet count 564 BUN 38 creatinine 1.77 Testing in the emergency room revealed chest x-ray done in the emergency room revealed bilateral infiltrate suggestive of pneumonia Patient was admitted to medical floor for further evaluation and treatment Past medical history is significant for history of gastrectomy, history of failure to thrive maintained on TPN, history of recurrent reflux with recurrent aspiration pneumonia, history of chronic kidney disease previous history of stroke history of hypothyroidism history of spinal stenosis with chronic back pain. On 09/04/2019 2H and was seen and examined on the medical floor she is alert and oriented 3 in no apparent distress she is still complaining of occasional cough and shortness of breath with activity, today she is also complaining of pain and burning sensation in the epigastric area, otherwise she denies any complaints there is no fever or chills no headache or dizziness no chest pain no nausea or vomiting no diarrhea and no urinary symptoms On 09/04/2021 patient is alert and oriented 3. Patient remains on room air. Pulmonary services are following. Patient remains on TPN. Patient remains on IV antibiotics Zosyn. Patient reports some shortness of breath. Patient denies nausea vomiting or diarrhea. Patient denies any urinary burning or frequency Objective - Vital Signs Vital signs: Vital Signs Temp 98 F 09/04/21 07:50 Pulse 87 09/04/21 08:42 Resp 20 09/04/21 07:50 BP 123/71 09/04/21 07:50 Pulse Ox 99 09/04/21 07:50 Intake & Output 09/03/21 09/04/21 09/04/21 18:59 06:59 18:59 Intake Total 900 Balance 900 Intake: Intake, IV Titration 900 Amount Magnesium Sulfate-D5w Pmx 100 1 gm In Dextrose/Water 1 100ml.bag @ 100 mls/hr IVPB Q1H [facility] Rx#: [id number] Mvi, Adult No.4 with Vit 600 K 10 ml Trace (Conc-1Ml/ Dose) 1 ml In Amino Acid 5%-D20w+Lytes*E* 1,000 ml @ 50 mls/hr IV .BY DURATION [facility] Rx#: [id number] Piperacillin-Tazobactam 3 100 .375 gm In Sodium Chloride 0.9% 100 ml @ 25 mls/hr IVPB Q8H [facility] Rx#: [id number] Potassium Chloride 20 meq 100 In Water For Injection 1 100ml.bag @ 50 mls/hr IVPB Q2H [facility] Rx#: [id number] Other: Voiding Method Bedside Commode # Voids 2 2 # Bowel Movements 2 - Exam In general patient is alert and oriented ?-3 in no distress HEENT head normocephalic and atraumatic Neck is supple no JVD no goiter no lymphadenopathy no carotid bruit Chest examination reveals a scattered crackles bilaterally Cardiac exam reveals regular heart sounds S1 and S2 no gallops no murmurs Abdomen is soft nontender no organomegaly with normal bowel sounds Extremity exam reveals no edema no cyanosis or clubbing Neurological examination reveals no gross focal deficits - Labs CBC & Chem 7: 09/04/21 05:04 09/04/21 05:04 Labs: Abnormal Lab Results - Last 24 Hours (Table) 09/03/21 09/03/21 09/03/21 Range/Units 04:48 10:40 16:44 WBC 13.62 H 13.5 H (4.50-10.00) X 10*3/uL RBC 3.46 L 3.71 L (4.10-5.20) X 10*6/uL Hgb 9.4 L 10.2 L (12.0-15.0) g/dL Hct 30.0 L (37.2-46.3) % MCHC 31.3 L 29.6 L (32.0-37.0) g/dL RDW 16.4 H 16.4 H (11.5-14.5) % Plt Count 480 H (150-450) k/uL MPV (9.5-12.2) fL Immature Gran # 0.13 H (0.00-0.04) X 10*3/uL Neutrophils # 10.34 H (1.80-7.70) X 10*3/uL Monocytes # 1.09 H (0.20-1.00) X 10*3/uL Eosinophils # 0.49 H (0.04-0.35) X 10*3/uL Immature Plt Fraction 1.0 L (1.1-6.1) % Carbon Dioxide (20.0-27.5) mmol/L BUN (9.0-27.0) mg/dL Est GFR (CKD-EPI)AfAm (60.0-200.0) Est GFR (CKD-EPI)NonAf (60.0-200.0) BUN/Creatinine Ratio (12.00-20.00) Ratio POC Glucose (mg/dL) 118 H (75-99) mg/dL Calcium (8.7-10.3) mg/dL Total Bilirubin (0.30-1.20) mg/dL Alkaline Phosphatase (41-126) U/L Total Protein (6.2-8.2) g/dL Albumin (3.8-4.9) g/dL Albumin/Globulin Ratio (1.60-3.17) g/dL 09/03/21 09/04/21 09/04/21 Range/Units 23:44 05:04 05:04 WBC 11.12 H (4.50-10.00) X 10*3/uL RBC 3.33 L (4.10-5.20) X 10*6/uL Hgb 9.0 L (12.0-15.0) g/dL Hct 29.5 L (37.2-46.3) % MCHC 30.5 L (32.0-37.0) g/dL RDW 16.6 H (11.5-14.5) % Plt Count (150-450) k/uL MPV 9.0 L (9.5-12.2) fL Immature Gran # 0.14 H (0.00-0.04) X 10*3/uL Neutrophils # 7.83 H (1.80-7.70) X 10*3/uL Monocytes # 1.27 H (0.20-1.00) X 10*3/uL Eosinophils # 0.53 H (0.04-0.35) X 10*3/uL Immature Plt Fraction (1.1-6.1) % Carbon Dioxide 16.3 L (20.0-27.5) mmol/L BUN 27.4 H (9.0-27.0) mg/dL Est GFR (CKD-EPI)AfAm 51.6 L (60.0-200.0) Est GFR (CKD-EPI)NonAf 44.5 L (60.0-200.0) BUN/Creatinine Ratio 22.83 H (12.00-20.00) Ratio POC Glucose (mg/dL) 129 H (75-99) mg/dL Calcium 8.1 L (8.7-10.3) mg/dL Total Bilirubin <0.15 L (0.30-1.20) mg/dL Alkaline Phosphatase 202 H (41-126) U/L Total Protein 5.2 L (6.2-8.2) g/dL Albumin 3.0 L (3.8-4.9) g/dL Albumin/Globulin Ratio 1.36 L (1.60-3.17) g/dL 09/04/21 Range/Units 05:33 WBC (4.50-10.00) X 10*3/uL RBC (4.10-5.20) X 10*6/uL Hgb (12.0-15.0) g/dL Hct (37.2-46.3) % MCHC (32.0-37.0) g/dL RDW (11.5-14.5) % Plt Count (150-450) k/uL MPV (9.5-12.2) fL Immature Gran # (0.00-0.04) X 10*3/uL Neutrophils # (1.80-7.70) X 10*3/uL Monocytes # (0.20-1.00) X 10*3/uL Eosinophils # (0.04-0.35) X 10*3/uL Immature Plt Fraction (1.1-6.1) % Carbon Dioxide (20.0-27.5) mmol/L BUN (9.0-27.0) mg/dL Est GFR (CKD-EPI)AfAm (60.0-200.0) Est GFR (CKD-EPI)NonAf (60.0-200.0) BUN/Creatinine Ratio (12.00-20.00) Ratio POC Glucose (mg/dL) 116 H (75-99) mg/dL Calcium (8.7-10.3) mg/dL Total Bilirubin (0.30-1.20) mg/dL Alkaline Phosphatase (41-126) U/L Total Protein (6.2-8.2) g/dL Albumin (3.8-4.9) g/dL Albumin/Globulin Ratio (1.60-3.17) g/dL Microbiology - Last 24 Hours (Table) 09/02/21 01:33 Urine Culture - Final Urine,Voided 09/01/21 18:56 Blood Culture - Preliminary Blood No Growth after 48 hours 09/01/21 18:41 Blood Culture - Preliminary Blood No Growth after 48 hours Assessment and Plan Plan: Pneumonia, possibly related to aspiration Acute kidney injury Failure to thrive patient is maintained on TPN, she has a known history of gastrectomy in the past Recent fall at home, no evidence of injury on CT scan of the brain and cervical spine and left hip x-ray done in the emergency room Underlying history of hypothyroidism Underlying history of spinal stenosis with chronic back pain Underlying history of chronic kidney disease Known history of CVA in the past Underlying history of depression and anxiety disorder Pain and burning sensation in the epigastric area. Amylase and lipase within normal limits. Abdomen ultrasound completed showing no acute abnormality At this time patient is admitted to medical floor Home medications reviewed and reordered She was started on IV hydration and IV antibiotics Continue was TPN Pulmonary consultation requested For DVT prophylaxis we will use Lovenox Will follow closely
[2021-09-04 11:04] LABS: Glucose,Whole Blood 97 mg/dL (75-99)
--- NOTE | 2021-09-04 12:04 | P.PN ---
Subjective Progress Note Date: 09/04/21 This is a 76-year-old white female patient who is well-known to our service from multiple hospitalizations for recurrent aspiration pneumonia. Patient had a history of previous gastrectomy, chronic dysphagia, recurrent aspiration pneumonia, chronic malnutrition and failure to thrive, patient is maintained on TPN in addition to a soft diet by mouth. Patient also has history of chronic kidney disease stage III, hypothyroidism, migraine headaches, chronic pain syndrome, history of CVA, and history of PICC line infection and sepsis. Patient came into the emergency department on 09/01/2021 for evaluation of a fall, and pain in left hip, bilateral shoulders, and patient apparently bumped her head in the fall as well. She had a recent adjustment of her methadone dose which was increased to 20 mg in the morning and 10 mg at night and the dose increased made her fatigued and lightheaded. She reports coughing up some green colored phlegm, no hemoptysis, no chest discomfort. Her chest x-ray showing bilateral airspace consolidation which had increased since her last chest x-ray from 08/08/2021. X-ray of the left hip showed left hip prosthesis, no fracture or dislocation. X-ray of the pelvis showed no acute abnormality of the pelvis, no fracture. CT of the brain and cervical spine was completed showing no acute intracranial abnormality, and mild degenerative hypertrophic changes in the c ervical spine, no fracture. There were nodular infiltrates at the lung apices there were also seen on CT from 01/28/2021. Room air pulse ox in the 100%, afebrile, hemodynamics stable. Admission labs have been reviewed showing white blood cell count of 16.9, hemoglobin 12.2, sodium of 141, potassium is 4.2, CO2 was 18, BUN was 38, creatinine is 1.7, CRP was elevated at 15.5, lipase was normal at 75, troponin was less than 0.012, alkaline phosphatase was 321, ALT was 36, and AST was 27, urinalysis showed mildly increased white blood cells at 13, 1+ ketones, small amount of leukocyte esterase, she tested negative for COVID 19, influenza A and B. On 09/03/2021 patient seen in follow-up on medical surgical floor, she is breathing comfortably, only occasional cough, no chest discomfort. No hemoptysis, no phlegm production. No wheezing, lung sounds are clear, diminished at the bases, no rhonchi or crackles noted. Room air pulse ox is 98%, afebrile. Today's labs have been reviewed, white blood cell count is 13.5, hemoglobin is 10.2, sodium is 137, potassium 3.3, CO2 is 19, BUN is 31, and creatinine is 1.26, renal function is improving. Pro-calcitonin level was 0.28. Patient remains on azithromycin and Rocephin for possibility of aspiration related pneumonia. She is tolerating soft diet in the form of pudding, she continues on TPN which is running at 30 ML per hour, and IV hydration with 20#. A 50 ML per hour The patient is seen today 09/04/2021 in follow-up on the regular medical floor. She is currently sitting up in bed. Awake and alert in no acute distress. Maintaining good O2 saturations up to 99% on room air. She's been afebrile. Hemodynamically stable. She continues with a loose nonproductive cough. She was having complaints of epigastric pain. Ultrasound revealed no acute abdominal abnormalities and blood cultures revealed no growth. Urine culture revealed no growth. White count 11.1. Hemoglobin 9.0. Sodium 137. Potassium 4.3. BUN 27. Creatinine 1.2. Glucose 116. AST 15. ALT 22. Alk phos 202. Albumin 3.0. She remains on TPN at 50 MLS per hour. Normal saline at 100 ML's per hour. She remains on antibiotics in the form of Zosyn. Objective - Vital Signs Vital signs: Vital Signs Temp 98 F 09/04/21 07:50 Pulse 87 09/04/21 08:42 Resp 20 09/04/21 07:50 BP 123/71 09/04/21 07:50 Pulse Ox 99 09/04/21 07:50 Intake & Output 09/03/21 09/04/21 09/04/21 18:59 06:59 18:59 Intake Total 900 Balance 900 Intake: Intake, IV Titration 900 Amount Magnesium Sulfate-D5w Pmx 100 1 gm In Dextrose/Water 1 100ml.bag @ 100 mls/hr IVPB Q1H [facility] Rx#: [id number] Mvi, Adult No.4 with Vit 600 K 10 ml Trace (Conc-1Ml/ Dose) 1 ml In Amino Acid 5%-D20w+Lytes*E* 1,000 ml @ 50 mls/hr IV .BY DURATION [facility] Rx#: [id number] Piperacillin-Tazobactam 3 100 .375 gm In Sodium Chloride 0.9% 100 ml @ 25 mls/hr IVPB Q8H [facility] Rx#: [id number] Potassium Chloride 20 meq 100 In Water For Injection 1 100ml.bag @ 50 mls/hr IVPB Q2H [facility] Rx#: [id number] Other: Voiding Method Bedside Commode # Voids 2 2 2 # Bowel Movements 2 - Exam GENERAL EXAM: Alert, pleasant, 76-year-old female patient, cachectic, in no acute distress, on room air, comfortable in no apparent distress. HEAD: Normocephalic/atraumatic. EYES: Normal reaction of pupils, equal size. Conjunctiva pink, sclera white. NOSE: Clear with pink turbinates. THROAT: No erythema or exudates. NECK: No masses, no JVD, no thyroid enlargement, no adenopathy. CHEST: No chest wall deformity. Symmetrical expansion. LUNGS: Equal air entry with few scattered rhonchi. CVS: Regular rate and rhythm, normal S1 and S2, no gallops, no murmurs, no rubs ABDOMEN: Soft, nontender. No hepatosplenomegaly, normal bowel sounds, no guarding or rigidity. EXTREMITIES: No clubbing, no edema, no cyanosis, 2+ pulses and upper and lower extremities. MUSCULOSKELETAL: Muscle strength and tone normal. SPINE: No scoliosis or deformity SKIN: No rashes CENTRAL NERVOUS SYSTEM: No focal deficits, tone is normal in all 4 extremities. PSYCHIATRIC: Alert and oriented -3. Appropriate affect. Intact judgment and insight. - Labs CBC & Chem 7: 09/04/21 05:04 09/04/21 05:04 Labs: Abnormal Lab Results - Last 24 Hours (Table) 09/03/21 09/03/21 09/03/21 Range/Units 04:48 16:44 23:44 WBC 13.62 H (4.50-10.00) X 10*3/uL RBC 3.46 L (4.10-5.20) X 10*6/uL Hgb 9.4 L (12.0-15.0) g/dL Hct 30.0 L (37.2-46.3) % MCHC 31.3 L (32.0-37.0) g/dL RDW 16.4 H (11.5-14.5) % MPV (9.5-12.2) fL Immature Gran # 0.13 H (0.00-0.04) X 10*3/uL Neutrophils # 10.34 H (1.80-7.70) X 10*3/uL Monocytes # 1.09 H (0.20-1.00) X 10*3/uL Eosinophils # 0.49 H (0.04-0.35) X 10*3/uL Immature Plt Fraction 1.0 L (1.1-6.1) % Carbon Dioxide (20.0-27.5) mmol/L BUN (9.0-27.0) mg/dL Est GFR (CKD-EPI)AfAm (60.0-200.0) Est GFR (CKD-EPI)NonAf (60.0-200.0) BUN/Creatinine Ratio (12.00-20.00) Ratio POC Glucose (mg/dL) 118 H 129 H (75-99) mg/dL Calcium (8.7-10.3) mg/dL Total Bilirubin (0.30-1.20) mg/dL Alkaline Phosphatase (41-126) U/L Total Protein (6.2-8.2) g/dL Albumin (3.8-4.9) g/dL Albumin/Globulin Ratio (1.60-3.17) g/dL 09/04/21 09/04/21 09/04/21 Range/Units 05:04 05:04 05:33 WBC 11.12 H (4.50-10.00) X 10*3/uL RBC 3.33 L (4.10-5.20) X 10*6/uL Hgb 9.0 L (12.0-15.0) g/dL Hct 29.5 L (37.2-46.3) % MCHC 30.5 L (32.0-37.0) g/dL RDW 16.6 H (11.5-14.5) % MPV 9.0 L (9.5-12.2) fL Immature Gran # 0.14 H (0.00-0.04) X 10*3/uL Neutrophils # 7.83 H (1.80-7.70) X 10*3/uL Monocytes # 1.27 H (0.20-1.00) X 10*3/uL Eosinophils # 0.53 H (0.04-0.35) X 10*3/uL Immature Plt Fraction (1.1-6.1) % Carbon Dioxide 16.3 L (20.0-27.5) mmol/L BUN 27.4 H (9.0-27.0) mg/dL Est GFR (CKD-EPI)AfAm 51.6 L (60.0-200.0) Est GFR (CKD-EPI)NonAf 44.5 L (60.0-200.0) BUN/Creatinine Ratio 22.83 H (12.00-20.00) Ratio POC Glucose (mg/dL) 116 H (75-99) mg/dL Calcium 8.1 L (8.7-10.3) mg/dL Total Bilirubin <0.15 L (0.30-1.20) mg/dL Alkaline Phosphatase 202 H (41-126) U/L Total Protein 5.2 L (6.2-8.2) g/dL Albumin 3.0 L (3.8-4.9) g/dL Albumin/Globulin Ratio 1.36 L (1.60-3.17) g/dL Microbiology - Last 24 Hours (Table) 09/02/21 01:33 Urine Culture - Final Urine,Voided 09/01/21 18:56 Blood Culture - Preliminary Blood No Growth after 48 hours 09/01/21 18:41 Blood Culture - Preliminary Blood No Growth after 48 hours Assessment and Plan Assessment: 1 Dyspnea, cough related to recurrent aspiration, with the possibility of recur rent aspiration related pneumonia 2 Fall at home, following methadone dose increase, CT of the brain, cervical spine, left hip and pelvis showed no acute findings, no acute fracture or dislocation 3 Acute kidney injury, related to ATN, improving 4 Chronic kidney disease stage III at baseline 5 Malnutrition and failure to thrive 6 Recurrent aspiration with multiple hospitalizations, patient is currently on TPN for nutritional support in addition to some oral feedings on soft diet 7 History of gastrectomy 8 Recent hospitalization for urinary tract infection, related to enterococcus faecalis 9 Chronic pain syndrome 10 Previous history of CVA 11 History of hypothyroidism 12 History of spinal stenosis and chronic back pain 13 History of chronic anemia of chronic disease 14 Anxiety/depression Plan: The patient was seen and evaluated Stable and on room air Unable to tolerate oral antibiotics We will consult infectious disease for recommendations Currently on Zosyn Remains on aspiration precautions Encouraged against oral intake Remains on TPN Home once cleared by medicine I have personally seen and examined the patient, performed the documentation and the assessment and plan as written. Number of minutes spent on the visit: 10.
[2021-09-04] MEDS: 1: AMINO ACID 5%-D20W+LYTES*E* 1,000 ML 2: MVI, ADULT NO.4 WITH VIT K 10 ML, TRACE (CON IV SCH ×3 (13:44)
[2021-09-04] MEDS: ALBUTEROL NEBULIZED 2.5 MG/3 ML INHALATION PRN (15:57)
[2021-09-04 17:39] LABS: Glucose,Whole Blood 109 mg/dL (75-99)
[2021-09-04] MEDS: MIRTAZAPINE 45 MG TABLET PO SCH (21:53)
[2021-09-05 00:06] LABS: Glucose,Whole Blood 85 mg/dL (75-99)
[2021-09-05] MEDS: INSULIN ASPART (NovoLOG) 100 UNIT/ML VIAL SQ SCH ×4 (00:06→17:01)
[2021-09-05] MEDS: HYDROmorphone 2 MG TAB PO PRN ×3 (00:17→18:02)
[2021-09-05] MEDS: BUTALB/APAP/CAFF 50-325-40MG TAB PO SCH ×4 (01:59→20:24)
[2021-09-05] MEDS: SODIUM CHLORIDE 0.9% 1,000 ML IV SCH ×2 (02:00→20:18)
[2021-09-05] MEDS: PIPERACILLIN-TAZOBACTAM 3.375 GM in SODIUM CHLORIDE 0.9% 100 ML IVPB SCH ×3 (02:55→21:17)
[2021-09-05 05:55] LABS: Glucose,Whole Blood 134 mg/dL (75-99)
[2021-09-05] MEDS: METHADONE 10 MG TAB PO SCH ×2 (05:57→15:36)
[2021-09-05] MEDS: LEVOTHYROXINE 100 MCG TAB PO SCH (05:58)
--- NOTE | 2021-09-05 07:10 | P.CONS ---
History of Present Illness - Reason for Consult Consult date: 09/04/21 Recurrent pneumonia/aspiration Requesting physician: Leyla Grace - Chief Complaint Fall and weakness x few days - History of Present Illness Patient is a 76-year-old female with a past medical history significant for gastrectomy, history of recurrent aspiration pneumonia chronic kidney disease chronic back pain from spinal stenosis in this patient maintained on TPN in the outpatient setting, patient presenting to the ER 3 days ago on 09/01/2021 after apparently the patient did have multiple falls patient also complaining of some cough which is mild to moderate intensity with occasional sputum production no hemoptysis patient denies having any nausea no vomiting some abdominal pain but no diarrhea and no choking on the food on presentation to the hospital the patient has been afebrile he did have a white count of 16.9 which is currently trending down BUN/creatinine was mildly elevated but trending down Protuss was mildly elevated 0.28 patient did have a chest x-ray bilateral airspace consolidation which is increased compared to the last exam patient is currently being treated with Zosyn concerning for aspiration pneumonia infectious disease was consulted because of her recurrent aspiration pneumonia Review of Systems Positive point has been mentioned in the HPI rest of the systems are negative Past Medical History Past Medical History: Asthma, COPD, CVA/TIA, GERD/Reflux, Memory Impairment, Osteoarthritis (OA), Pneumonia, Renal Disease, Respiratory Disorder, Thyroid Disorder Additional Past Medical History / Comment(s): Aspiration, pneumonias, covid pneumonia, protein calorie malnutrition, pt was on TPN with PICC line managed thru [facility], chronic anemia, gastric ulcers/PUD, pancreatitis, bowel obstruction/surgery, constipation, CKD stage IV, TIA, chronic migraines, chronic back/cervical pain/spinal stenosis, hypothyroid, hyponatremia. History of Any Multi-Drug Resistant Organisms: Other MDRO Past Surgical History: Back Surgery, Bowel Resection, Hysterectomy, Joint Replacement Additional Past Surgical History / Comment(s): LOWER BACK SURGERY lamenectomy /discetomy then had a revison of that sx. 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, nasal sx d/t broken nose, colonoscopy/egd, PAIN CLINIC PROCEDURES, PORT A CATH INSERTION, LT A[facility]OLA Past Anesthesia/Blood Transfusion Reactions: No Reported Reaction Additional Past Anesthesia/Blood Transfusion Reaction / Comm: PT RECEIVED BLOOD TRANSFUSIONS AFTER STOMACH SURGERY Past Psychological History: Anxiety, Depression, Panic Disorder Smoking Status: Never smoker Past Alcohol Use History: None Reported Past Drug Use History: None Reported - Past Family History Father Family Medical History: Cancer, Coronary Artery Disease (CAD) Additional Family Medical History / Comment(s): FATHER HAD BLADDER AND KIDNEY CANCER. FATHER HAD TB WHEN HE WAS A CHILD .FATHER AT AGE 87. Mother Family Medical History: Cancer Additional Family Medical History / Comment(s): MOTHER AT AGE 58 OF OVARIAN CANCER. Medications and Allergies Home Medications Medication Instructions Recorded Confirmed Type Ferrous Sulfate [Iron (65 MG 325 mg PO DAILY@1200 11/06/15 09/01/21 History Elemental)] calcitrioL [Calcitriol] 1 mcg PO MOWEFR 06/07/19 09/01/21 History busPIRone HCL [Buspar] 30 mg PO BID 04/14/20 09/01/21 History Butalb/APAP/Caff 50-325-40Mg 1 tab PO Q6H 06/30/20 09/01/21 History [Fioricet 50-325-40] buPROPion XL [Wellbutrin XL] 150 mg PO DAILY 11/04/20 09/01/21 History buPROPion XL [Wellbutrin XL] 300 mg PO DAILY 02/20/21 09/01/21 History Albuterol Sulfate [Albuterol 2 puff INHALATION RT-Q6H PRN 04/07/21 09/01/21 History Sulfate Hfa] Budesonide/Formoterol Fumarate 2 puff INHALATION RT-BID 04/07/21 09/01/21 History [Symbicort 160-4.5 Mcg Inhaler] Aspirin EC [Ecotrin Low Dose] 81 mg PO DAILY 05/12/21 09/01/21 History Levothyroxine Sodium [Synthroid] 100 mcg PO DAILY@0630 30 Days #30 06/19/21 09/01/21 Rx tab Furosemide [Lasix] 20 mg PO DAILY PRN 08/08/21 09/01/21 History HYDROmorphone [Dilaudid] 2 mg PO Q6H PRN 08/08/21 09/01/21 History Omeprazole 20 mg PO DAILY 08/08/21 09/01/21 History hydrOXYzine pamoate [Vistaril] 100 mg PO TID 08/08/21 09/01/21 History polyethylene glycoL 3350 [Miralax] 17 gm PO DAILY PRN 08/08/21 09/01/21 History Sodium Bicarbonate Tab 650 mg PO DAILY 30 Days #30 tab 08/21/21 09/01/21 Rx Methadone [Dolophine] 10 mg PO DAILY@1600 09/01/21 09/01/21 History Methadone [Dolophine] 20 mg PO DAILY 09/01/21 09/01/21 History Mirtazapine [Remeron] 45 mg PO HS 09/01/21 09/01/21 History Naloxone HCl [Narcan] 4 mg NASAL ONCE PRN 09/01/21 09/01/21 History Ondansetron [Zofran] 4 mg PO Q6H PRN 09/01/21 09/01/21 History Allergies Allergy/AdvReac Type Severity Reaction Status Date / Time mold Allergy Itching Verified 09/01/21 19:35 denosumab [From Prolia] AdvReac SEVERE Verified 09/01/21 19:35 CALCIUM LOSS morphine AdvReac Confusion Verified 09/01/21 19:35 DUST Allergy Itching Uncoded 09/01/21 19:35 Physical Exam Vitals: Vital Signs Temp Pulse Pulse Resp BP Pulse Ox 09/04/21 08:42 87 09/04/21 08:31 86 09/04/21 07:50 98 F 81 20 123/71 99 09/04/21 00:29 97.8 F 89 15 125/59 99 09/03/21 18:12 98.4 F 107 H 18 125/75 98 09/03/21 17:05 92 09/03/21 16:54 92 09/03/21 14:00 98.3 F 92 18 122/70 99 Intake and Output 09/03/21 09/04/21 09/04/21 22:59 06:59 14:59 Intake Total 900 Balance 900 Intake: Intake, IV Titration 900 Amount Magnesium Sulfate-D5w Pmx 100 1 gm In Dextrose/Water 1 100ml.bag @ 100 mls/hr IVPB Q1H [facility] Rx#: [id number] Mvi, Adult No.4 with Vit 600 K 10 ml Trace (Conc-1Ml/ Dose) 1 ml In Amino Acid 5%-D20w+Lytes*E* 1,000 ml @ 50 mls/hr IV .BY DURATION [facility] Rx#: [id number] Piperacillin-Tazobactam 3 100 .375 gm In Sodium Chloride 0.9% 100 ml @ 25 mls/hr IVPB Q8H [facility] Rx#: [id number] Potassium Chloride 20 meq 100 In Water For Injection 1 100ml.bag @ 50 mls/hr IVPB Q2H [facility] Rx#: [id number] Other: # Voids 2 2 2 GENERAL DESCRIPTION: An elderly female lying in bed, no distress. No tachypnea or accessory muscle of respiration use. HEENT: Shows Pallor , no scleral icterus. Oral mucous membrane is dry. No pharyngeal erythema or thrush NECK: Trachea central, no thyromegaly. LUNGS: Unlabored breathing. Decreased breath sound the bases. No wheeze or crackle. HEART: S1, S2, regular rate and rhythm. No loud murmur ABDOMEN: Soft, no tenderness , guarding or rigidity, no organomegaly EXTREMITIES: No edema of feet. SKIN: No rash, no masses palpable. NEUROLOGICAL: The patient is awake, alert, oriented x3, mood and affect normal. Results CBC & Chem 7: 09/04/21 05:04 09/04/21 05:04 Labs: Abnormal Lab Results - Last 24 Hours (Table) 09/03/21 09/03/21 09/04/21 Range/Units 16:44 23:44 05:04 WBC (4.50-10.00) X 10*3/uL RBC (4.10-5.20) X 10*6/uL Hgb (12.0-15.0) g/dL Hct (37.2-46.3) % MCHC (32.0-37.0) g/dL RDW (11.5-14.5) % MPV (9.5-12.2) fL Immature Gran # (0.00-0.04) X 10*3/uL Neutrophils # (1.80-7.70) X 10*3/uL Monocytes # (0.20-1.00) X 10*3/uL Eosinophils # (0.04-0.35) X 10*3/uL Carbon Dioxide 16.3 L (20.0-27.5) mmol/L BUN 27.4 H (9.0-27.0) mg/dL Est GFR (CKD-EPI)AfAm 51.6 L (60.0-200.0) Est GFR (CKD-EPI)NonAf 44.5 L (60.0-200.0) BUN/Creatinine Ratio 22.83 H (12.00-20.00) Ratio POC Glucose (mg/dL) 118 H 129 H (75-99) mg/dL Calcium 8.1 L (8.7-10.3) mg/dL Total Bilirubin <0.15 L (0.30-1.20) mg/dL Alkaline Phosphatase 202 H (41-126) U/L Total Protein 5.2 L (6.2-8.2) g/dL Albumin 3.0 L (3.8-4.9) g/dL Albumin/Globulin Ratio 1.36 L (1.60-3.17) g/dL 09/04/21 09/04/21 Range/Units 05:04 05:33 WBC 11.12 H (4.50-10.00) X 10*3/uL RBC 3.33 L (4.10-5.20) X 10*6/uL Hgb 9.0 L (12.0-15.0) g/dL Hct 29.5 L (37.2-46.3) % MCHC 30.5 L (32.0-37.0) g/dL RDW 16.6 H (11.5-14.5) % MPV 9.0 L (9.5-12.2) fL Immature Gran # 0.14 H (0.00-0.04) X 10*3/uL Neutrophils # 7.83 H (1.80-7.70) X 10*3/uL Monocytes # 1.27 H (0.20-1.00) X 10*3/uL Eosinophils # 0.53 H (0.04-0.35) X 10*3/uL Carbon Dioxide (20.0-27.5) mmol/L BUN (9.0-27.0) mg/dL Est GFR (CKD-EPI)AfAm (60.0-200.0) Est GFR (CKD-EPI)NonAf (60.0-200.0) BUN/Creatinine Ratio (12.00-20.00) Ratio POC Glucose (mg/dL) 116 H (75-99) mg/dL Calcium (8.7-10.3) mg/dL Total Bilirubin (0.30-1.20) mg/dL Alkaline Phosphatase (41-126) U/L Total Protein (6.2-8.2) g/dL Albumin (3.8-4.9) g/dL Albumin/Globulin Ratio (1.60-3.17) g/dL Microbiology - Last 24 Hours (Table) 09/02/21 01:33 Urine Culture - Final Urine,Voided 09/01/21 18:56 Blood Culture - Preliminary Blood No Growth after 48 hours 09/01/21 18:41 Blood Culture - Preliminary Blood No Growth after 48 hours Assessment and Plan (1) Aspiration pneumonia Current Visit: No Status: Acute Code(s): J69.0 - PNEUMONITIS DUE TO INHALATION OF FOOD AND VOMIT SNOMED Code(s): 958501306 Plan: 1patient presented to hospital with weakness multiple falls in this patient who did have history of gastrectomy and is maintained on TPN in the outpatient setting concerning for recurrent aspiration pneumonia in this patient currently responding to the Zosyn. 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 3patient benefit from possible jejunostomy tube for feeding that will hopefully prevent recurrent aspiration pneumonia and also line related sepsis secondary to the PICC line and TPN need. 4- patient to continue with Zosyn in view of clinical response. We will follow on clinical condition and cultures to further adjust medication if needed Thank you for this consultation will follow this patient along with you Time with Patient: Greater than 30
[2021-09-05] MEDS: IPRATROPIUM-ALBUTEROL 3 ML NEB INHALATION PRN (08:17)
[2021-09-05] MEDS: SYMBICORT 160-4.5 MCG INHALER INHALATION SCH ×2 (08:17→19:27)
[2021-09-05] MEDS: buPROPion XL 150 MG TAB.ER.24H PO SCH (08:52)
[2021-09-05] MEDS: PANTOPRAZOLE 40 MG TABLET PO SCH (08:52)
[2021-09-05] MEDS: SODIUM BICARBONATE TAB 650 MG TAB PO SCH (08:52)
[2021-09-05] MEDS: ONDANSETRON 4 MG TAB PO PRN (08:52)
[2021-09-05] MEDS: hydrOXYzine pamoate 25 MG CAP PO SCH ×3 (08:52→21:17)
[2021-09-05] MEDS: ASPIRIN 81 MG PO SCH (08:52)
[2021-09-05] MEDS: busPIRone HCl 10 MG TAB PO SCH ×2 (08:52→21:17)
[2021-09-05] MEDS: ENOXAPARIN 30 MG/0.3 ML SYRINGE SQ SCH (08:53)
[2021-09-05 09:21] LABS: Basophils # (A) 0.06 X 10*3/uL (0.00-0.10); Basophils % (A) 0.5 %; Eosinophils # (A) 0.61 X 10*3/uL (0.04-0.35); Eosinophils % (A) 5.4 %; HCT 27.6 % (37.2-46.3); HGB 8.4 g/dL (12.0-15.0); Immature Grans, Automated 1.4 %; Lymphocytes # (A) 1.57 X 10*3/uL (0.90-5.00); Lymphocytes % (A) 13.9 %; MCH 27.1 pg (27.0-32.0); MCHC 30.4 g/dL (32.0-37.0); Mean Platelet Volume 9.8 fL (9.5-12.2); Monocytes # (A) 1.09 X 10*3/uL (0.20-1.00); Monocytes % (A) 9.6 %; NRBC Per 100 WBC 0 /100 WBCS (0.0-0.0); Neutrophils # (A) 7.82 X 10*3/uL (1.80-7.70); Neutrophils % (A) 69.2 %; Platelet Count 389 X 10*3/uL (140-440); RDW 16.7 % (11.5-14.5); WBC 11.31 X 10*3/uL (4.50-10.00)
[2021-09-05 09:24] LABS: Magnesium 2.1 mg/dL (1.5-2.4); Phosphorus 2.8 mg/dL (2.4-5.1)
[2021-09-05 09:35] LABS: ALT 31 U/L (8-44); AST 30 U/L (13-35); African American GFR (CKD) 51.6 (60.0-200.0); Albumin/Globulin Ratio 1.36 (1.60-3.17); Alkaline Phosphatase 182 U/L (41-126); BUN/Creat Ratio 27.25 Ratio (12.00-20.00); Blood Urea Nitrogen 32.7 mg/dL (9.0-27.0); Calcium 8.4 mg/dL (8.7-10.3); Carbon Dioxide 19.6 mmol/L (20.0-27.5); Chloride 108 mmol/L (96-109); Globulin 2.2 g/dL (1.6-3.3); Glucose 115 mg/dL (70-110); Non-African American GFR(CKD) 44.5 (60.0-200.0); Potassium 5.1 mmol/L (3.5-5.5); Sodium 137 mmol/L (135-145); Total Bilirubin <0.15 mg/dL (0.30-1.20); Total Protein 5.2 g/dL (6.2-8.2)
[2021-09-05] MEDS: 1: AMINO ACID 5%-D20W+LYTES*E* 1,000 ML 2: MVI, ADULT NO.4 WITH VIT K 10 ML, TRACE (CON IV SCH ×3 (10:21)
--- NOTE | 2021-09-05 11:03 | P.PN ---
Subjective Progress Note Date: 09/05/21 This is a 76-year-old white female patient who is well-known to our service from multiple hospitalizations for recurrent aspiration pneumonia. Patient had a history of previous gastrectomy, chronic dysphagia, recurrent aspiration pneumonia, chronic malnutrition and failure to thrive, patient is maintained on TPN in addition to a soft diet by mouth. Patient also has history of chronic kidney disease stage III, hypothyroidism, migraine headaches, chronic pain syndrome, history of CVA, and history of PICC line infection and sepsis. Patient came into the emergency department on 09/01/2021 for evaluation of a fall, and pain in left hip, bilateral shoulders, and patient apparently bumped her head in the fall as well. She had a recent adjustment of her methadone dose which was increased to 20 mg in the morning and 10 mg at night and the dose increased made her fatigued and lightheaded. She reports coughing up some green colored phlegm, no hemoptysis, no chest discomfort. Her chest x-ray showing bilateral airspace consolidation which had increased since her last chest x-ray from 08/08/2021. X-ray of the left hip showed left hip prosthesis, no fracture or dislocation. X-ray of the pelvis showed no acute abnormality of the pelvis, no fracture. CT of the brain and cervical spine was completed showing no acute intracranial abnormality, and mild degenerative hypertrophic changes in the c ervical spine, no fracture. There were nodular infiltrates at the lung apices there were also seen on CT from 01/28/2021. Room air pulse ox in the 100%, afebrile, hemodynamics stable. Admission labs have been reviewed showing white blood cell count of 16.9, hemoglobin 12.2, sodium of 141, potassium is 4.2, CO2 was 18, BUN was 38, creatinine is 1.7, CRP was elevated at 15.5, lipase was normal at 75, troponin was less than 0.012, alkaline phosphatase was 321, ALT was 36, and AST was 27, urinalysis showed mildly increased white blood cells at 13, 1+ ketones, small amount of leukocyte esterase, she tested negative for COVID 19, influenza A and B. On 09/03/2021 patient seen in follow-up on medical surgical floor, she is breathing comfortably, only occasional cough, no chest discomfort. No hemoptysis, no phlegm production. No wheezing, lung sounds are clear, diminished at the bases, no rhonchi or crackles noted. Room air pulse ox is 98%, afebrile. Today's labs have been reviewed, white blood cell count is 13.5, hemoglobin is 10.2, sodium is 137, potassium 3.3, CO2 is 19, BUN is 31, and creatinine is 1.26, renal function is improving. Pro-calcitonin level was 0.28. Patient remains on azithromycin and Rocephin for possibility of aspiration related pneumonia. She is tolerating soft diet in the form of pudding, she continues on TPN which is running at 30 ML per hour, and IV hydration with 20#. A 50 ML per hour The patient is seen today 09/04/2021 in follow-up on the regular medical floor. She is currently sitting up in bed. Awake and alert in no acute distress. Maintaining good O2 saturations up to 99% on room air. She's been afebrile. Hemodynamically stable. She continues with a loose nonproductive cough. She was having complaints of epigastric pain. Ultrasound revealed no acute abdominal abnormalities and blood cultures revealed no growth. Urine culture revealed no growth. White count 11.1. Hemoglobin 9.0. Sodium 137. Potassium 4.3. BUN 27. Creatinine 1.2. Glucose 116. AST 15. ALT 22. Alk phos 202. Albumin 3.0. She remains on TPN at 50 MLS per hour. Normal saline at 100 ML's per hour. She remains on antibiotics in the form of Zosyn. The patient is seen today 09/05/2021 in follow-up on the regular medical floor. She is awake and alert in no acute distress. She continues with a loose cough. She had been seen and evaluated by ID services who is recommending a possible jejunostomy tube placement to avoid continued aspiration pneumonias. She is continued on TPN for now. Blood cultures had revealed no growth. Urine culture revealed no growth. White count 11.3. Hemoglobin 8.4. Sodium 137. Potassium 5.1. BUN 33. Creatinine 1.2. Glucose 115. Albumin 3.0. She remains on antibiotics in the form of Zosyn. Continued on bronchodilators. Lovenox for DVT prophylaxis. Objective - Vital Signs Vital signs: Vital Signs Temp 98.4 F 09/05/21 07:37 Pulse 87 09/05/21 08:28 Resp 16 09/05/21 08:05 BP 120/70 09/05/21 07:37 Pulse Ox 97 09/05/21 07:37 Intake & Output 09/04/21 09/05/21 09/05/21 18:59 06:59 18:59 Intake Total 2079 700 Balance 2079 700 Weight 43.9 kg Intake: Intake, IV Titration 1000 700 Amount Amino Acid 5%-D20w+Lytes* 1000 E* 1,000 ml @ 50 mls/hr IV .BY DURATION [facility] Rx#: [id number] Mvi, Adult No.4 with Vit 600 K 10 ml Trace (Conc-1Ml/ Dose) 1 ml In Amino Acid 5%-D20w+Lytes*E* 1,000 ml @ 50 mls/hr IV .BY DURATION [facility] Rx#: [id number] Piperacillin-Tazobactam 3 100 .375 gm In Sodium Chloride 0.9% 100 ml @ 25 mls/hr IVPB Q8H [facility] Rx#: [id number] Oral 1080 Other: Voiding Method Bedside Commode # Voids 3 3 # Bowel Movements 1 - Exam GENERAL EXAM: Alert, very pleasant, 76-year-old female patient, cachectic, on room air, comfortable in no distress. HEAD: Normocephalic/atraumatic. EYES: Normal reaction of pupils, equal size. Conjunctiva pink, sclera white. NOSE: Clear with pink turbinates. THROAT: No erythema or exudates. NECK: No masses, no JVD, no thyroid enlargement, no adenopathy. CHEST: No chest wall deformity. Symmetrical expansion. LUNGS: Equal air entry with few scattered rhonchi. CVS: Regular rate and rhythm, normal S1 and S2, no gallops, no murmurs, no rubs ABDOMEN: Soft, nontender. No hepatosplenomegaly, normal bowel sounds, no guarding or rigidity. EXTREMITIES: No clubbing, no edema, no cyanosis, 2+ pulses and upper and lower extremities. MUSCULOSKELETAL: Muscle strength and tone normal. SPINE: No scoliosis or deformity SKIN: No rashes CENTRAL NERVOUS SYSTEM: No focal deficits, tone is normal in all 4 extremities. PSYCHIATRIC: Alert and oriented -3. Appropriate affect. Intact judgment and insight. - Labs CBC & Chem 7: 09/05/21 04:59 09/05/21 04:59 Labs: Abnormal Lab Results - Last 24 Hours (Table) 09/04/21 09/05/21 09/05/21 Range/Units 17:38 04:59 04:59 WBC 11.31 H (4.50-10.00) X 10*3/uL RBC 3.10 L (4.10-5.20) X 10*6/uL Hgb 8.4 L (12.0-15.0) g/dL Hct 27.6 L (37.2-46.3) % MCHC 30.4 L (32.0-37.0) g/dL RDW 16.7 H (11.5-14.5) % Immature Gran # 0.16 H (0.00-0.04) X 10*3/uL Neutrophils # 7.82 H (1.80-7.70) X 10*3/uL Monocytes # 1.09 H (0.20-1.00) X 10*3/uL Eosinophils # 0.61 H (0.04-0.35) X 10*3/uL Carbon Dioxide 19.6 L (20.0-27.5) mmol/L Anion Gap 9.40 L (10.00-18.00) mmol/L BUN 32.7 H (9.0-27.0) mg/dL Est GFR (CKD-EPI)AfAm 51.6 L (60.0-200.0) Est GFR (CKD-EPI)NonAf 44.5 L (60.0-200.0) BUN/Creatinine Ratio 27.25 H (12.00-20.00) Ratio Glucose 115 H (70-110) mg/dL POC Glucose (mg/dL) 109 H (75-99) mg/dL Calcium 8.4 L (8.7-10.3) mg/dL Total Bilirubin <0.15 L (0.30-1.20) mg/dL Alkaline Phosphatase 182 H (41-126) U/L Total Protein 5.2 L (6.2-8.2) g/dL Albumin 3.0 L (3.8-4.9) g/dL Albumin/Globulin Ratio 1.36 L (1.60-3.17) g/dL 09/05/21 Range/Units 05:53 WBC (4.50-10.00) X 10*3/uL RBC (4.10-5.20) X 10*6/uL Hgb (12.0-15.0) g/dL Hct (37.2-46.3) % MCHC (32.0-37.0) g/dL RDW (11.5-14.5) % Immature Gran # (0.00-0.04) X 10*3/uL Neutrophils # (1.80-7.70) X 10*3/uL Monocytes # (0.20-1.00) X 10*3/uL Eosinophils # (0.04-0.35) X 10*3/uL Carbon Dioxide (20.0-27.5) mmol/L Anion Gap (10.00-18.00) mmol/L BUN (9.0-27.0) mg/dL Est GFR (CKD-EPI)AfAm (60.0-200.0) Est GFR (CKD-EPI)NonAf (60.0-200.0) BUN/Creatinine Ratio (12.00-20.00) Ratio Glucose (70-110) mg/dL POC Glucose (mg/dL) 134 H (75-99) mg/dL Calcium (8.7-10.3) mg/dL Total Bilirubin (0.30-1.20) mg/dL Alkaline Phosphatase (41-126) U/L Total Protein (6.2-8.2) g/dL Albumin (3.8-4.9) g/dL Albumin/Globulin Ratio (1.60-3.17) g/dL Microbiology - Last 24 Hours (Table) 09/01/21 18:41 Blood Culture - Preliminary Blood No Growth after 72 hours 09/01/21 18:56 Blood Culture - Preliminary Blood No Growth after 72 hours 09/02/21 01:33 Urine Culture - Final Urine,Voided Assessment and Plan Assessment: 1 Dyspnea, cough related to recurrent aspiration, with suspected recurrent aspiration related pneumonia 2 Fall at home, following methadone dose increase, CT of the brain, cervical spine, left hip and pelvis showed no acute findings, no acute fracture or dislocation 3 Acute kidney injury, related to ATN, improving 4 Chronic kidney disease stage III at baseline 5 Malnutrition and failure to thrive 6 Recurrent aspiration with multiple hospitalizations, patient is currently on TPN for nutritional support in addition to some oral feedings on soft diet 7 History of gastrectomy 8 Recent hospitalization for urinary tract infection, related to enterococcus faecalis 9 Chronic pain syndrome 10 Previous history of CVA 11 History of hypothyroidism 12 History of spinal stenosis and chronic back pain 13 History of chronic anemia of chronic disease 14 Anxiety/depression Plan: The patient was seen and evaluated Stable and on room air Currently on Zosyn Remains on aspiration precautions Appreciate ID consult PICC line to be placed Encouraged against oral intake Remains on TPN for now May require jejunostomy tube placement Surgical consult placed I have personally seen and examined the patient, performed the documentation and the assessment and plan as written. Number of minutes spent on the visit: 10.
[2021-09-05 11:37] LABS: Glucose,Whole Blood 95 mg/dL (75-99)
[2021-09-05] MEDS: FERROUS SULFATE 325 MG TAB PO SCH (12:12)
--- NOTE | 2021-09-05 15:29 | P.GSCN ---
History of Present Illness Consult date: 09/05/21 History of present illness: CHIEF COMPLAINT: Cough HISTORY OF PRESENT ILLNESS: This is a 76-year-old female who presented to the emergency room with complaints of cough and fatigue and admitted with a recurrent aspiration pneumonia on 09/01/2021. She also had a fall prior to admission. She has a known history of recurrent aspiration pneumonia. She has surgical history of gastrectomy. Initially she had a partial gastrectomy for peptic ulcer disease completed in 1989 and then the rest of the stomach was removed in 1994. Surgeries were completed at [facility]. Patient denies history of Kacey-en-Y gastric bypass. Patient has been on TPN for the for nutrition support due to being unable to have any significant intake orally because of recurrent aspiration pneumonias. Surgical service has been consult for possible J-tube placement. Patient is currently on a regular diet. She denies any difficulty swallowing. Denies any abdominal pain. Patient reports that she's had about 7 recurrent aspiration pneumonias within the last year. PAST MEDICAL HISTORY: See list. PAST SURGICAL HISTORY: See list. MEDICATIONS: See list. ALLERGIES: See list. SOCIAL HISTORY: No illicit drug use. REVIEW OF SYSTEMS: CONSTITUTIONAL: Denies fever or chills. HEENT: Denies blurred vision, vision changes, or eye pain. Denies hemoptysis CARDIOVASCULAR: Denies chest pain or pressure. RESPIRATORY: No shortness of breath. GASTROINTESTINAL: See HPI for pertinent findings HEMATOLOGIC: Denies bleeding disorders. GENITOURINARY: Denies any blood in urine or increased urinary frequency. SKIN: Denies pruitis. Denies rash. PHYSICAL EXAM: VITAL SIGNS: Reviewed GENERAL: Well-developed in no acute distress. HEENT: No sclera icterus. Extraocular movements grossly intact. Moist buccal mucosa. Head is atraumatic, normocephalic. No nasal drainage. ABDOMEN: Soft. Nondistended. Nontender NEUROLOGIC: Alert and oriented. Cranial nerves II through XII grossly intact. LABORATORY DATA: WBC 16.9 down to 11.31 hemoglobin 9 down to 8.4 platelets 389 Sodium is 137 potassium is 5.1 creatinine 1.2 Albumin 3.0 IMAGING: Ultrasound no acute abdomen abnormality Chest x-ray bilateral areas of infiltrate or stable correlate for pneumonia. Un derlying neoplasm in the differential diagnosis. COPD ASSESSMENT: 1. Recurrent aspiration pneumonia 2. Moderate protein calorie malnutrition PLAN: -Further recommendations forthcoming per surgeon regarding J-tube placement -Continue supportive care Physician Atm Servicer note has been reviewed by physician. Signing provider agrees with the documented findings, assessment, and plan of care. I have personally seen and examined the patient, reviewed the SLURRY MAN /PAs history, exam and MDM and agree with the assessment and plan as written. Based on total visit time, I have performed more than 50% of the visit. As above: Patient known to our service. Per the patient she has been on TPN for the last year. This treatment has been directed by the [facility] she has been following with. She has a history of previous total gastrectomy with esophagojejunostomy. No evidence of anastomotic stricture on multiple previous endoscopies. Patient has had recurrent aspiration that was thought to be related to esophageal dysmotility. Unclear why the patient has not had a jejunostomy feeding tube placed while under the care of her tertiary care center however would defer to their management decisions given the complexity of her case. Advise TPN for now and follow up with her [facility] team to discuss open versus percutaneous jejunostomy feeding tube placement. Past Medical History Past Medical History: Asthma, COPD, CVA/TIA, GERD/Reflux, Memory Impairment, Osteoarthritis (OA), Pneumonia, Renal Disease, Respiratory Disorder, Thyroid Disorder Additional Past Medical History / Comment(s): Aspiration, pneumonias, covid pneumonia, protein calorie malnutrition, pt was on TPN with PICC line m anaged thru [facility], chronic anemia, gastric ulcers/PUD, pancreatitis, bowel obstruction/surgery, constipation, CKD stage IV, TIA, chronic migraines, chronic back/cervical pain/spinal stenosis, hypothyroid, hyponatremia. History of Any Multi-Drug Resistant Organisms: Other MDRO Past Surgical History: Back Surgery, Bowel Resection, Hysterectomy, Joint Replacement Additional Past Surgical History / Comment(s): LOWER BACK SURGERY lamenectomy/discetomy then had a revison of that sx. 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, nasal sx d/t broken nose, colonoscopy/egd, PAIN CLINIC PROCEDURES, PORT A CATH INSERTION, LT ADEOLA Past Anesthesia/Blood Transfusion Reactions: No Reported Reaction Additional Past Anesthesia/Blood Transfusion Reaction / Comm: PT RECEIVED BLOOD TRANSFUSIONS AFTER STOMACH SURGERY Past Psychological History: Anxiety, Depression, Panic Disorder Smoking Status: Never smoker Past Alcohol Use History: None Reported Past Drug Use History: None Reported - Past Family History Father Family Medical History: Cancer, Coronary Artery Disease (CAD) Additional Family Medical History / Comment(s): FATHER HAD BLADDER AND KIDNEY CANCER. FATHER HAD TB WHEN HE WAS A CHILD .FATHER AT AGE 87. Mother Family Medical History: Cancer Additional Family Medical History / Comment(s): MOTHER AT AGE 58 OF OVARIAN CANCER. Medications and Allergies Home Medications Medication Instructions Recorded Confirmed Type Ferrous Sulfate [Iron (65 MG 325 mg PO DAILY@1200 11/06/15 09/01/21 History Elemental)] calcitrioL [Calcitriol] 1 mcg PO MOWEFR 06/07/19 09/01/21 History busPIRone HCL [Buspar] 30 mg PO BID 04/14/20 09/01/21 History Butalb/APAP/Caff 50-325-40Mg 1 tab PO Q6H 06/30/20 09/01/21 History [Fioricet 50-325-40] buPROPion XL [Wellbutrin XL] 150 mg PO DAILY 11/04/20 09/01/21 History buPROPion XL [Wellbutrin XL] 300 mg PO DAILY 02/20/21 09/01/21 History Albuterol Sulfate [Albuterol 2 puff INHALATION RT-Q6H PRN 04/07/21 09/01/21 History Sulfate Hfa] Budesonide/Formoterol Fumarate 2 puff INHALATION RT-BID 04/07/21 09/01/21 History [Symbicort 160-4.5 Mcg Inhaler] Aspirin EC [Ecotrin Low Dose] 81 mg PO DAILY 05/12/21 09/01/21 History Levothyroxine Sodium [Synthroid] 100 mcg PO DAILY@0630 30 Days #30 06/19/21 09/01/21 Rx tab Furosemide [Lasix] 20 mg PO DAILY PRN 08/08/21 09/01/21 History HYDROmorphone [Dilaudid] 2 mg PO Q6H PRN 08/08/21 09/01/21 History Omeprazole 20 mg PO DAILY 08/08/21 09/01/21 History hydrOXYzine pamoate [Vistaril] 100 mg PO TID 08/08/21 09/01/21 History polyethylene glycoL 3350 [Miralax] 17 gm PO DAILY PRN 08/08/21 09/01/21 History Sodium Bicarbonate Tab 650 mg PO DAILY 30 Days #30 tab 08/21/21 09/01/21 Rx Methadone [Dolophine] 10 mg PO DAILY@1600 09/01/21 09/01/21 History Methadone [Dolophine] 20 mg PO DAILY 09/01/21 09/01/21 History Mirtazapine [Remeron] 45 mg PO HS 09/01/21 09/01/21 History Naloxone HCl [Narcan] 4 mg NASAL ONCE PRN 09/01/21 09/01/21 History Ondansetron [Zofran] 4 mg PO Q6H PRN 09/01/21 09/01/21 History Allergies Allergy/AdvReac Type Severity Reaction Status Date / Time mold Allergy Itching Verified 09/01/21 19:35 denosumab [From Prolia] AdvReac SEVERE Verified 09/01/21 19:35 CALCIUM LOSS morphine AdvReac Confusion Verified 09/01/21 19:35 DUST Allergy Itching Uncoded 09/01/21 19:35 Surgical - Exam Vital Signs Temp Pulse Resp BP Pulse Ox 97.8 F 113 H 18 119/69 98 09/01/21 14:15 09/01/21 14:15 09/01/21 14:15 09/01/21 14:15 09/01/21 14:15 Results - Labs 09/05/21 04:59 09/05/21 04:59 Abnormal Lab Results - Last 24 Hours (Table) 09/04/21 09/05/21 09/05/21 Range/Units 17:38 04:59 04:59 WBC 11.31 H (4.50-10.00) X 10*3/uL RBC 3.10 L (4.10-5.20) X 10*6/uL Hgb 8.4 L (12.0-15.0) g/dL Hct 27.6 L (37.2-46.3) % MCHC 30.4 L (32.0-37.0) g/dL RDW 16.7 H (11.5-14.5) % Immature Gran # 0.16 H (0.00-0.04) X 10*3/uL Neutrophils # 7.82 H (1.80-7.70) X 10*3/uL Monocytes # 1.09 H (0.20-1.00) X 10*3/uL Eosinophils # 0.61 H (0.04-0.35) X 10*3/uL Carbon Dioxide 19.6 L (20.0-27.5) mmol/L Anion Gap 9.40 L (10.00-18.00) mmol/L BUN 32.7 H (9.0-27.0) mg/dL Est GFR (CKD-EPI)AfAm 51.6 L (60.0-200.0) Est GFR (CKD-EPI)NonAf 44.5 L (60.0-200.0) BUN/Creatinine Ratio 27.25 H (12.00-20.00) Ratio Glucose 115 H (70-110) mg/dL POC Glucose (mg/dL) 109 H (75-99) mg/dL Calcium 8.4 L (8.7-10.3) mg/dL Total Bilirubin <0.15 L (0.30-1.20) mg/dL Alkaline Phosphatase 182 H (41-126) U/L Total Protein 5.2 L (6.2-8.2) g/dL Albumin 3.0 L (3.8-4.9) g/dL Albumin/Globulin Ratio 1.36 L (1.60-3.17) g/dL 09/05/21 Range/Units 05:53 WBC (4.50-10.00) X 10*3/uL RBC (4.10-5.20) X 10*6/uL Hgb (12.0-15.0) g/dL Hct (37.2-46.3) % MCHC (32.0-37.0) g/dL RDW (11.5-14.5) % Immature Gran # (0.00-0.04) X 10*3/uL Neutrophils # (1.80-7.70) X 10*3/uL Monocytes # (0.20-1.00) X 10*3/uL Eosinophils # (0.04-0.35) X 10*3/uL Carbon Dioxide (20.0-27.5) mmol/L Anion Gap (10.00-18.00) mmol/L BUN (9.0-27.0) mg/dL Est GFR (CKD-EPI)AfAm (60.0-200.0) Est GFR (CKD-EPI)NonAf (60.0-200.0) BUN/Creatinine Ratio (12.00-20.00) Ratio Glucose (70-110) mg/dL POC Glucose (mg/dL) 134 H (75-99) mg/dL Calcium (8.7-10.3) mg/dL Total Bilirubin (0.30-1.20) mg/dL Alkaline Phosphatase (41-126) U/L Total Protein (6.2-8.2) g/dL Albumin (3.8-4.9) g/dL Albumin/Globulin Ratio (1.60-3.17) g/dL Microbiology - Last 24 Hours (Table) 09/01/21 18:41 Blood Culture - Preliminary Blood No Growth after 72 hours 09/01/21 18:56 Blood Culture - Preliminary Blood No Growth after 72 hours Diabetes panel 09/05/21 Range/Units 04:59 Sodium 137 (135-145) mmol/L Potassium 5.1 (3.5-5.5) mmol/L Chloride 108 (96-109) mmol/L Carbon Dioxide 19.6 L (20.0-27.5) mmol/L BUN 32.7 H (9.0-27.0) mg/dL Creatinine 1.2 (0.6-1.5) mg/dL Glucose 115 H (70-110) mg/dL Calcium 8.4 L (8.7-10.3) mg/dL AST 30 (13-35) U/L ALT 31 (8-44) U/L Alkaline Phosphatase 182 H (41-126) U/L Total Protein 5.2 L (6.2-8.2) g/dL Albumin 3.0 L (3.8-4.9) g/dL Calcium panel 09/05/21 Range/Units 04:59 Calcium 8.4 L (8.7-10.3) mg/dL Phosphorus 2.8 (2.4-5.1) mg/dL Albumin 3.0 L (3.8-4.9) g/dL Pituitary panel 09/05/21 Range/Units 04:59 Sodium 137 (135-145) mmol/L Potassium 5.1 (3.5-5.5) mmol/L Chloride 108 (96-109) mmol/L Carbon Dioxide 19.6 L (20.0-27.5) mmol/L BUN 32.7 H (9.0-27.0) mg/dL Creatinine 1.2 (0.6-1.5) mg/dL Glucose 115 H (70-110) mg/dL Calcium 8.4 L (8.7-10.3) mg/dL Adrenal panel 09/05/21 Range/Units 04:59 Sodium 137 (135-145) mmol/L Potassium 5.1 (3.5-5.5) mmol/L Chloride 108 (96-109) mmol/L Carbon Dioxide 19.6 L (20.0-27.5) mmol/L BUN 32.7 H (9.0-27.0) mg/dL Creatinine 1.2 (0.6-1.5) mg/dL Glucose 115 H (70-110) mg/dL Calcium 8.4 L (8.7-10.3) mg/dL Total Bilirubin <0.15 L (0.30-1.20) mg/dL AST 30 (13-35) U/L ALT 31 (8-44) U/L Alkaline Phosphatase 182 H (41-126) U/L Total Protein 5.2 L (6.2-8.2) g/dL Albumin 3.0 L (3.8-4.9) g/dL
[2021-09-05 17:00] LABS: Glucose,Whole Blood 106 mg/dL (75-99)
[2021-09-05 17:07] VITALS: BMI 17.6
--- NOTE | 2021-09-05 17:11 | P.PN ---
Subjective Progress Note Date: 09/05/21 Luoise Sutton, is a 76-year-old female who presented to [facility] emergency room with a chief complaint of fatigue and cough of yellow greenish phlegm. She was evaluated in the emergency room vital examination on presentation revealed a temperature of 97.8 pulse 113 respiration 18 and blood pressure 119/69 pulse ox 98% on room air Laboratory data revealed a white blood count of 16.9 hemoglobin 12.2 platelet count 564 BUN 38 creatinine 1.77 Testing in the emergency room revealed chest x-ray done in the emergency room revealed bilateral infiltrate suggestive of pneumonia Patient was admitted to medical floor for further evaluation and treatment Past medical history is significant for history of gastrectomy, history of failure to thrive maintained on TPN, history of recurrent reflux with recurrent aspiration pneumonia, history of chronic kidney disease previous history of stroke history of hypothyroidism history of spinal stenosis with chronic back pain. On 09/03/2021 was seen and examined on the medical floor she is alert and oriented 3 in no apparent distress she is still complaining of occasional cough and shortness of breath with activity, today she is also complaining of pain and burning sensation in the epigastric area, otherwise she denies any complaints there is no fever or chills no headache or dizziness no chest pain no nausea or vomiting no diarrhea and no urinary symptoms On 09/04/2021 patient is alert and oriented 3. Patient remains on room air. [facility] services are following. Patient remains on TPN. Patient remains on IV antibiotics Zosyn. Patient reports some shortness of breath. Patient denies nausea vomiting or diarrhea. Patient denies any urinary burning or frequency. On 09/05/2021 patient is alert and oriented 3 in no apparent distress she is still complaining of cough and shortness of breath with activity otherwise she denies any complaints there is no fever or chills no headache or dizziness no chest pain no abdominal pain no nausea or vomiting no diarrhea no blood in the stools no burning with urination no frequency or urgency no hematuria Objective - Vital Signs Vital signs: Vital Signs Temp 98.4 F 09/05/21 07:37 Pulse 87 09/05/21 08:28 Resp 16 09/05/21 08:05 BP 120/70 09/05/21 07:37 Pulse Ox 97 09/05/21 07:37 Intake & Output 09/04/21 09/05/21 09/05/21 18:59 06:59 18:59 Intake Total 2079 700 Balance 2079 700 Weight 43.9 kg Intake: Intake, IV Titration 1000 700 Amount Amino Acid 5%-D20w+Lytes* 1000 E* 1,000 ml @ 50 mls/hr IV .BY DURATION [facility] Rx#: [id number] Mvi, Adult No.4 with Vit 600 K 10 ml Trace (Conc-1Ml/ Dose) 1 ml In Amino Acid 5%-D20w+Lytes*E* 1,000 ml @ 50 mls/hr IV .BY DURATION [facility] Rx#: [id number] Piperacillin-Tazobactam 3 100 .375 gm In Sodium Chloride 0.9% 100 ml @ 25 mls/hr IVPB Q8H [facility] Rx#: [id number] Oral 1080 Other: Voiding Method Bedside Commode # Voids 3 3 # Bowel Movements 1 - Exam In general patient is alert and oriented x 3 in no distress HEENT head normocephalic and atraumatic Neck is supple no JVD no goiter no lymphadenopathy no carotid bruit Chest examination reveals a scattered crackles bilaterally Cardiac exam reveals regular heart sounds S1 and S2 no gallops no murmurs Abdomen is soft nontender no organomegaly with normal bowel sounds Extremity exam reveals no edema no cyanosis or clubbing Neurological examination reveals no gross focal deficits - Labs CBC & Chem 7: 09/05/21 04:59 09/05/21 04:59 Labs: Abnormal Lab Results - Last 24 Hours (Table) 09/04/21 09/05/21 09/05/21 Range/Units 17:38 04:59 04:59 WBC 11.31 H (4.50-10.00) X 10*3/uL RBC 3.10 L (4.10-5.20) X 10*6/uL Hgb 8.4 L (12.0-15.0) g/dL Hct 27.6 L (37.2-46.3) % MCHC 30.4 L (32.0-37.0) g/dL RDW 16.7 H (11.5-14.5) % Immature Gran # 0.16 H (0.00-0.04) X 10*3/uL Neutrophils # 7.82 H (1.80-7.70) X 10*3/uL Monocytes # 1.09 H (0.20-1.00) X 10*3/uL Eosinophils # 0.61 H (0.04-0.35) X 10*3/uL Carbon Dioxide 19.6 L (20.0-27.5) mmol/L Anion Gap 9.40 L (10.00-18.00) mmol/L BUN 32.7 H (9.0-27.0) mg/dL Est GFR (CKD-EPI)AfAm 51.6 L (60.0-200.0) Est GFR (CKD-EPI)NonAf 44.5 L (60.0-200.0) BUN/Creatinine Ratio 27.25 H (12.00-20.00) Ratio Glucose 115 H (70-110) mg/dL POC Glucose (mg/dL) 109 H (75-99) mg/dL Calcium 8.4 L (8.7-10.3) mg/dL Total Bilirubin <0.15 L (0.30-1.20) mg/dL Alkaline Phosphatase 182 H (41-126) U/L Total Protein 5.2 L (6.2-8.2) g/dL Albumin 3.0 L (3.8-4.9) g/dL Albumin/Globulin Ratio 1.36 L (1.60-3.17) g/dL 09/05/21 Range/Units 05:53 WBC (4.50-10.00) X 10*3/uL RBC (4.10-5.20) X 10*6/uL Hgb (12.0-15.0) g/dL Hct (37.2-46.3) % MCHC (32.0-37.0) g/dL RDW (11.5-14.5) % Immature Gran # (0.00-0.04) X 10*3/uL Neutrophils # (1.80-7.70) X 10*3/uL Monocytes # (0.20-1.00) X 10*3/uL Eosinophils # (0.04-0.35) X 10*3/uL Carbon Dioxide (20.0-27.5) mmol/L Anion Gap (10.00-18.00) mmol/L BUN (9.0-27.0) mg/dL Est GFR (CKD-EPI)AfAm (60.0-200.0) Est GFR (CKD-EPI)NonAf (60.0-200.0) BUN/Creatinine Ratio (12.00-20.00) Ratio Glucose (70-110) mg/dL POC Glucose (mg/dL) 134 H (75-99) mg/dL Calcium (8.7-10.3) mg/dL Total Bilirubin (0.30-1.20) mg/dL Alkaline Phosphatase (41-126) U/L Total Protein (6.2-8.2) g/dL Albumin (3.8-4.9) g/dL Albumin/Globulin Ratio (1.60-3.17) g/dL Microbiology - Last 24 Hours (Table) 09/01/21 18:41 Blood Culture - Preliminary Blood No Growth after 72 hours 09/01/21 18:56 Blood Culture - Preliminary Blood No Growth after 72 hours Assessment and Plan Plan: Pneumonia, possibly related to aspiration Acute kidney injury Failure to thrive patient is maintained on TPN, she has a known history of gastrectomy in the past Recent fall at home, no evidence of injury on CT scan of the brain and cervical spine and left hip x-ray done in the emergency room Underlying history of hypothyroidism Underlying history of spinal stenosis with chronic back pain Underlying history of chronic kidney disease Known history of CVA in the past Underlying history of depression and anxiety disorder Pain and burning sensation in the epigastric area. Amylase and lipase within normal limits. Abdomen ultrasound completed showing no acute abnormality At this time patient is admitted to medical floor Home medications reviewed and reordered She was started on IV hydration and IV antibiotics Continue was TPN Pulmonary consultation requested For DVT prophylaxis we will use Lovenox Will follow closely
[2021-09-05] MEDS: MIRTAZAPINE 45 MG TABLET PO SCH (21:18)
[2021-09-05 23:56] LABS: Glucose,Whole Blood 116 mg/dL (75-99)
[2021-09-06] MEDS: HYDROmorphone 2 MG TAB PO PRN ×4 (00:02→20:59)
[2021-09-06] MEDS: INSULIN ASPART (NovoLOG) 100 UNIT/ML VIAL SQ SCH ×5 (00:05→23:30)
[2021-09-06] MEDS: SODIUM CHLORIDE 0.9% 1,000 ML IV SCH ×3 (00:33→20:58)
[2021-09-06] MEDS: BUTALB/APAP/CAFF 50-325-40MG TAB PO SCH ×4 (02:13→19:23)
[2021-09-06 06:07] LABS: Glucose,Whole Blood 98 mg/dL (75-99)
[2021-09-06] MEDS: PIPERACILLIN-TAZOBACTAM 3.375 GM in SODIUM CHLORIDE 0.9% 100 ML IVPB SCH ×3 (06:18→19:23)
[2021-09-06] MEDS: METHADONE 10 MG TAB PO SCH ×2 (06:19→16:17)
[2021-09-06] MEDS: LEVOTHYROXINE 100 MCG TAB PO SCH (06:19)
[2021-09-06] MEDS: SYMBICORT 160-4.5 MCG INHALER INHALATION SCH ×3 (07:35→19:07)
[2021-09-06] MEDS: PANTOPRAZOLE 40 MG TABLET PO SCH (07:40)
[2021-09-06] MEDS: SODIUM BICARBONATE TAB 650 MG TAB PO SCH (07:40)
[2021-09-06] MEDS: busPIRone HCl 10 MG TAB PO SCH ×2 (07:40→22:13)
[2021-09-06] MEDS: buPROPion XL 150 MG TAB.ER.24H PO SCH (07:40)
[2021-09-06] MEDS: hydrOXYzine pamoate 25 MG CAP PO SCH ×3 (07:41→22:13)
[2021-09-06] MEDS: ASPIRIN 81 MG PO SCH (07:41)
[2021-09-06] MEDS: ENOXAPARIN 30 MG/0.3 ML SYRINGE SQ SCH (07:42)
[2021-09-06] MEDS: 1: AMINO ACID 5%-D20W+LYTES*E* 1,000 ML 2: MVI, ADULT NO.4 WITH VIT K 10 ML, TRACE (CON IV SCH ×3 (08:00)
[2021-09-06 09:03] LABS: African American GFR (CKD) 49.1 (60.0-200.0); Anion Gap 8.3 mmol/L (10.00-18.00); BUN/Creat Ratio 27.92 Ratio (12.00-20.00); Blood Urea Nitrogen 34.9 mg/dL (9.0-27.0); Calcium 8.8 mg/dL (8.7-10.3); Carbon Dioxide 20.5 mmol/L (20.0-27.5); Magnesium 2.2 mg/dL (1.5-2.4); Non-African American GFR(CKD) 42.3 (60.0-200.0); Phosphorus 3.6 mg/dL (2.4-5.1); Potassium 5.5 mmol/L (3.5-5.5)
--- NOTE | 2021-09-06 11:19 | P.PN ---
Subjective Progress Note Date: 09/06/21 Louise Sutton, is a 76-year-old female who presented to [facility] emergency room with a chief complaint of fatigue and cough of yellow greenish phlegm. She was evaluated in the emergency room vital examination on presentation revealed a temperature of 97.8 pulse 113 respiration 18 and blood pressure 119/69 pulse ox 98% on room air Laboratory data revealed a white blood count of 16.9 hemoglobin 12.2 platelet count 564 BUN 38 creatinine 1.77 Testing in the emergency room revealed chest x-ray done in the emergency room revealed bilateral infiltrate suggestive of pneumonia Patient was admitted to medical floor for further evaluation and treatment Past medical history is significant for history of gastrectomy, history of failure to thrive maintained on TPN, history of recurrent reflux with recurrent aspiration pneumonia, history of chronic kidney disease previous history of stroke history of hypothyroidism history of spinal stenosis with chronic back pain. On 09/03/2021 was seen and examined on the medical floor she is alert and oriented 3 in no apparent distress she is still complaining of occasional cough and shortness of breath with activity, today she is also complaining of pain and burning sensation in the epigastric area, otherwise she denies any complaints there is no fever or chills no headache or dizziness no chest pain no nausea or vomiting no diarrhea and no urinary symptoms On 09/04/2021 patient is alert and oriented 3. Patient remains on room air. [facility] services are following. Patient remains on TPN. Patient remains on IV antibiotics Zosyn. Patient reports some shortness of breath. Patient denies nausea vomiting or diarrhea. Patient denies any urinary burning or frequency. On 09/05/2021 patient is alert and oriented 3 in no apparent distress she is still complaining of cough and shortness of breath with activity otherwise she denies any complaints there is no fever or chills no headache or dizziness no chest pain no abdominal pain no nausea or vomiting no diarrhea no blood in the stools no burning with urination no frequency or urgency no hematuria 09/06/2021 patient is alert and oriented 3. Patient complaining of chronic pain. She was evaluated by surgical services for possible J-tube placement. Patient remains on IV Zosyn per infectious disease. Patient denies chest pain. Patient denies nausea vomiting or diarrhea. Patient denies any urinary burning or frequency. Patient remains on TPN Objective - Vital Signs Vital signs: Vital Signs Temp 97.9 F 09/06/21 08:00 Pulse 82 09/06/21 08:00 Resp 16 09/06/21 07:35 BP 123/77 09/06/21 08:00 Pulse Ox 96 09/06/21 08:00 Intake & Output 09/05/21 09/06/21 09/06/21 18:59 06:59 18:59 Weight 43.9 kg Other: Voiding Method Bedside Commode Bedside Commode Bedside Commode # Voids 4 2 - Exam In general patient is alert and oriented x 3 in no distress HEENT head normocephalic and atraumatic Neck is supple no JVD no goiter no lymphadenopathy no carotid bruit Chest examination reveals a scattered crackles bilaterally Cardiac exam reveals regular heart sounds S1 and S2 no gallops no murmurs Abdomen is soft nontender no organomegaly with normal bowel sounds Extremity exam reveals no edema no cyanosis or clubbing Neurological examination reveals no gross focal deficits - Labs CBC & Chem 7: 09/05/21 04:59 09/06/21 06:19 Labs: Abnormal Lab Results - Last 24 Hours (Table) 09/05/21 09/05/21 09/06/21 Range/Units 16:58 23:54 06:19 Anion Gap 8.30 L (10.00-18.00) mmol/L BUN 34.9 H (9.0-27.0) mg/dL Est GFR (CKD-EPI)AfAm 49.1 L (60.0-200.0) Est GFR (CKD-EPI)NonAf 42.3 L (60.0-200.0) BUN/Creatinine Ratio 27.92 H (12.00-20.00) Ratio POC Glucose (mg/dL) 106 H 116 H (75-99) mg/dL Microbiology - Last 24 Hours (Table) 09/01/21 18:41 Blood Culture - Preliminary Blood No Growth after 96 hours 09/01/21 18:56 Blood Culture - Preliminary Blood No Growth after 96 hours Assessment and Plan Plan: Pneumonia, possibly related to aspiration Acute kidney injury Failure to thrive patient is maintained on TPN, she has a known history of gastrectomy in the past Recent fall at home, no evidence of injury on CT scan of the brain and cervical spine and left hip x-ray done in the emergency room Underlying history of hypothyroidism Underlying history of spinal stenosis with chronic back pain Underlying history of chronic kidney disease Known history of CVA in the past Underlying history of depression and anxiety disorder Pain and burning sensation in the epigastric area. Amylase and lipase within normal limits. Abdomen ultrasound completed showing no acute abnormality At this time patient is admitted to medical floor Home medications reviewed and reordered She was started on IV hydration and IV antibiotics Continue was TPN Pulmonary consultation requested Surgical service is consulted for pulmonary for possible J-tube placement For DVT prophylaxis we will use Lovenox Will follow closely
[2021-09-06 11:36] LABS: Glucose,Whole Blood 107 mg/dL (75-99)
[2021-09-06] MEDS: FERROUS SULFATE 325 MG TAB PO SCH (12:28)
--- NOTE | 2021-09-06 12:51 | P.PN ---
Subjective Progress Note Date: 09/06/21 CHIEF COMPLAINT: Recurrent aspiration pneumonia HISTORY OF PRESENT ILLNESS: Surgical service consulted for possible J-tube placement. Patient has known recurrent aspiration likely secondary to esophageal dysmotility. Patient has history of previous total gastrectomy with esophagojejunostomy. Patient currently on a soft diet. She's still has cough. Denies any abdominal pain. Denies any nausea or vomiting. Afebrile. PHYSICAL EXAM: VITAL SIGNS: Reviewed. GENERAL: Well-developed in no acute distress. HEENT: No sclera icterus. Extraocular movements grossly intact. Moist buccal mucosa. Head is atraumatic, normocephalic. ABDOMEN: Soft. Nondistended. Nontender. NEUROLOGIC: Alert and oriented. Cranial nerves II through XII grossly intact. ASSESSMENT: 1. Recurrent aspiration pneumonia 2. Moderate protein calorie malnutrition 3. Esophageal dysmotility disorder PLAN: -No surgical intervention planned. -Defer management of J-tube placement to [facility] where patient has had previous surgeries and due to the complexity of her case. Physician Informatics Manager note has been reviewed by physician. Signing provider agrees with the documented findings, assessment, and plan of care. I have personally seen and examined the patient, reviewed the VETERINARY VIROLOGIST /PAs history, exam and MDM and agree with the assessment and plan as written. Based on total visit time, I have performed more than 50% of the visit. As above: Patient is tolerating a diet currently. Says she is eating since she is on antibiotics. Clinical scenario discussed with patient in detail. We'll try to discuss further with Dr. Desir. Objective - Vital Signs Vital signs: Vital Signs Temp 97.9 F 09/06/21 08:00 Pulse 82 09/06/21 08:00 Resp 16 09/06/21 07:35 BP 123/77 09/06/21 08:00 Pulse Ox 96 09/06/21 08:00 Intake & Output 09/05/21 09/06/21 09/06/21 18:59 06:59 18:59 Weight 43.9 kg Other: Voiding Method Bedside Commode Bedside Commode Bedside Commode # Voids 4 2 - Labs CBC & Chem 7: 09/05/21 04:59 09/06/21 06:19 Labs: Abnormal Lab Results - Last 24 Hours (Table) 09/05/21 09/05/21 09/06/21 Range/Units 16:58 23:54 06:19 Anion Gap 8.30 L (10.00-18.00) mmol/L BUN 34.9 H (9.0-27.0) mg/dL Est GFR (CKD-EPI)AfAm 49.1 L (60.0-200.0) Est GFR (CKD-EPI)NonAf 42.3 L (60.0-200.0) BUN/Creatinine Ratio 27.92 H (12.00-20.00) Ratio POC Glucose (mg/dL) 106 H 116 H (75-99) mg/dL 09/06/21 Range/Units 11:35 Anion Gap (10.00-18.00) mmol/L BUN (9.0-27.0) mg/dL Est GFR (CKD-EPI)AfAm (60.0-200.0) Est GFR (CKD-EPI)NonAf (60.0-200.0) BUN/Creatinine Ratio (12.00-20.00) Ratio POC Glucose (mg/dL) 107 H (75-99) mg/dL Microbiology - Last 24 Hours (Table) 09/01/21 18:41 Blood Culture - Preliminary Blood No Growth after 96 hours 09/01/21 18:56 Blood Culture - Preliminary Blood No Growth after 96 hours
--- NOTE | 2021-09-06 13:30 | P.PN ---
Subjective Progress Note Date: 09/06/21 Principal diagnosis: Falls, cough, chronic aspiration This is a 76-year-old white female patient who is well-known to our service from multiple hospitalizations for recurrent aspiration pneumonia. Patient had a history of previous gastrectomy, chronic dysphagia, recurrent aspiration pneumonia, chronic malnutrition and failure to thrive, patient is maintained on TPN in addition to a soft diet by mouth. Patient also has history of chronic kidney disease stage III, hypothyroidism, migraine headaches, chronic pain syndrome, history of CVA, and history of PICC line infection and sepsis. Patient came into the emergency department on 09/01/2021 for evaluation of a fall, and pain in left hip, bilateral shoulders, and patient apparently bumped her head in the fall as well. She had a recent adjustment of her methadone dose which was increased to 20 mg in the morning and 10 mg at night and the dose increased made her fatigued and lightheaded. She reports coughing up some green colored phlegm, no hemoptysis, no chest discomfort. Her chest x-ray showing bilateral airspace consolidation which had increased since her last chest x-ray from 08/08/2021. X-ray of the left hip showed left hip prosthesis, no fracture or dislocation. X-ray of the pelvis showed no acute abnormality of the pelvis, no fracture. CT of the brain and cervical spine was completed showing no acute intracranial abnormality, and mild degenerative hypertrophic changes in the cervical spine, no fracture. There were nodular infiltrates at the lung apices there were also seen on CT from 01/28/2021. Room air pulse ox in the 100%, afebrile, hemodynamics stable. Admission labs have been reviewed showing white blood cell count of 16.9, hemoglobin 12.2, sodium of 141, potassium is 4.2, CO2 was 18, BUN was 38, creatinine is 1.7, CRP was elevated at 15.5, lipase was normal at 75, troponin was less than 0.012, alkaline phosphatase was 321, ALT was 36, and AST was 27, urinalysis showed mildly increased white blood cells at 13, 1+ ketones, small amount of leukocyte esterase, she tested negative for COVID 19, influenza A and B. On 09/03/2021 patient seen in follow-up on medical surgical floor, she is breathing comfortably, only occasional cough, no chest discomfort. No hemoptysis, no phlegm production. No wheezing, lung sounds are clear, diminished at the bases, no rhonchi or crackles noted. Room air pulse ox is 98%, afebrile. Today's labs have been reviewed, white blood cell count is 13.5, hemoglobin is 10.2, sodium is 137, potassium 3.3, CO2 is 19, BUN is 31, and creatinine is 1.26, renal function is improving. Pro-calcitonin level was 0.28. Patient remains on azithromycin and Rocephin for possibility of aspiration related pneumonia. She is tolerating soft diet in the form of pudding, she continues on TPN which is running at 30 ML per hour, and IV hydration with 20#. A 50 ML per hour On 09/06/2021 patient seen in follow-up on medical floor. She is awake and alert, in no acute distress, states she has a mild chest congestion, but appears to be in no acute distress, room air pulse ox is 96-97%, she is breathing comfortably, no complaints of chest discomfort. No hemoptysis. PICC line was inserted, patient continues on TPN, she remains on Zosyn for aspiration related pneumonia. Vital signs have been stable, no altered mentation, no fever or chills. Blood and urine cultures have been negative, we were unable to send a sputum culture as the patient is not producing any sputum. Lung sounds are diminished, no crackles or wheezes. No reported nausea or vomiting. She remains on soft foods. Yesterday we placed a consult to Gen. surgery for possibility of a jejunostomy insertion. Awaiting their further recommendations. Objective - Vital Signs Vital signs: Vital Signs Temp 97.9 F 09/06/21 08:00 Pulse 82 09/06/21 08:00 Resp 16 09/06/21 07:35 BP 123/77 09/06/21 08:00 Pulse Ox 96 09/06/21 08:00 Intake & Output 09/05/21 09/06/21 09/06/21 18:59 06:59 18:59 Weight 43.9 kg Other: Voiding Method Bedside Commode Bedside Commode Bedside Commode # Voids 4 2 - Exam GENERAL EXAM: Alert, very pleasant, 76-year-old white female, cachectic, but appears to be in no acute distress, on room air comfortable in no apparent distress. HEAD: Normocephalic/atraumatic. EYES: Normal reaction of pupils, equal size. Conjunctiva pink, sclera white. NOSE: Clear with pink turbinates. THROAT: No erythema or exudates. NECK: No masses, no JVD, no thyroid enlargement, no adenopathy. CHEST: No chest wall deformity. Symmetrical expansion. LUNGS: Equal air entry with no crackles, wheeze, rhonchi or dullness. CVS: Regular rate and rhythm, normal S1 and S2, no gallops, no murmurs, no rubs ABDOMEN: Soft, nontender. No hepatosplenomegaly, normal bowel sounds, no guarding or rigidity. EXTREMITIES: No clubbing, no edema, no cyanosis, 2+ pulses and upper and lower extremities. MUSCULOSKELETAL: Muscle strength and tone normal. SPINE: No scoliosis or deformity SKIN: No rashes CENTRAL NERVOUS SYSTEM: Alert and oriented -3. No focal deficits, tone is normal in all 4 extremities. PSYCHIATRIC: Alert and oriented -3. Appropriate affect. Intact judgment and insight. - Labs CBC & Chem 7: 09/05/21 04:59 09/06/21 06:19 Labs: Abnormal Lab Results - Last 24 Hours (Table) 09/05/21 09/05/21 09/06/21 Range/Units 16:58 23:54 06:19 Anion Gap 8.30 L (10.00-18.00) mmol/L BUN 34.9 H (9.0-27.0) mg/dL Est GFR (CKD-EPI)AfAm 49.1 L (60.0-200.0) Est GFR (CKD-EPI)NonAf 42.3 L (60.0-200.0) BUN/Creatinine Ratio 27.92 H (12.00-20.00) Ratio POC Glucose (mg/dL) 106 H 116 H (75-99) mg/dL 09/06/21 Range/Units 11:35 Anion Gap (10.00-18.00) mmol/L BUN (9.0-27.0) mg/dL Est GFR (CKD-EPI)AfAm (60.0-200.0) Est GFR (CKD-EPI)NonAf (60.0-200.0) BUN/Creatinine Ratio (12.00-20.00) Ratio POC Glucose (mg/dL) 107 H (75-99) mg/dL Microbiology - Last 24 Hours (Table) 09/01/21 18:41 Blood Culture - Preliminary Blood No Growth after 96 hours 09/01/21 18:56 Blood Culture - Preliminary Blood No Growth after 96 hours Assessment and Plan Plan: Assessment: #1. Dyspnea, cough related to recurrent aspiration, with the possibility of recurrent aspiration related pneumonia #2. Fall at home, following methadone dose increase, CT of the brain, cervical spine, left hip and pelvis showed no acute findings, no acute fracture or dislocation #3. Acute kidney injury, related to ATN, improving #4. Chronic kidney disease stage III at baseline #5. Malnutrition and failure to thrive #6. Recurrent aspiration with multiple hospitalizations, patient is currently on TPN for nutritional support in addition to some oral feedings on soft diet #7. History of gastrectomy #8. Recent hospitalization for urinary tract infection, related to enterococcus faecalis #9. Chronic pain syndrome #10. Previous history of CVA #11. History of hypothyroidism #12. History of spinal stenosis and chronic back pain #13. History of chronic anemia of chronic disease #14. Anxiety/depression Plan: Patient is breathing comfortably Continue current antibiotics She is on room air Reports no distress Await further recommendations from general surgery in terms of their opinion on jejunostomy insertion Please refer to full consultation note by general surgery Continue TPN Maintain aspiration precautions with oral feedings We'll continue to follow I have personally seen and examined the patient, performed the documentation and the assessment and plan as written. Number of minutes spent on the visit: [15] Time with Patient: Less than 30
--- NOTE | 2021-09-06 15:28 | P.PN ---
Subjective Progress Note Date: 09/05/21 Principal diagnosis: Recurrent aspiration pneumonia Patient is a 76-year-old female with a past medical history significant for gastrectomy, history of recurrent aspiration pneumonia and Central line Infection which the patient uses for TPN, presented to hospital with weakness and fall and has been diagnosed with aspiration pneumonia. On today's evaluation that is 09/05/2021, patient denies having any fever or any chills, she is currently breathing comfortably on room air denies any chest pain still have some cough but not bringing up any sputum complaining of some abdominal pain but no vomiting or diarrhea Objective - Vital Signs Vital signs: Vital Signs Temp 98.0 F 09/05/21 14:00 Pulse 87 09/05/21 14:00 Resp 16 09/05/21 08:05 BP 104/59 09/05/21 14:00 Pulse Ox 98 09/05/21 14:00 Intake & Output 09/04/21 09/05/21 09/05/21 18:59 06:59 18:59 Intake Total 2080 700 Balance 208 700 Weight 43.9 kg Intake: Intake, IV Titration 1000 700 Amount Amino Acid 5%-D20w+Lytes* 1000 E* 1,000 ml @ 50 mls/hr IV .BY DURATION CHAD Rx#: [id number] Mvi, Adult No.4 with Vit 600 K 10 ml Trace (Conc-1Ml/ Dose) 1 ml In Amino Acid 5%-D20w+Lytes*E* 1,000 ml @ 50 mls/hr IV .BY DURATION CHAD Rx#: [id number] Piperacillin-Tazobactam 3 100 .375 gm In Sodium Chloride 0.9% 100 ml @ 25 mls/hr IVPB Q8H CHAD Rx#: [id number] Oral 1080 Other: Voiding Method Bedside Commode # Voids 3 3 # Bowel Movements 1 - Exam GENERAL DESCRIPTION: An elderly female lying in bed in no distress RESPIRATORY SYSTEM: Unlabored breathing , decreased breath sounds at bases HEART: S1 S2 regular rate and rhythm , ABDOMEN: Soft , no tenderness EXTREMITIES: No edema feet - Labs CBC & Chem 7: 09/05/21 04:59 09/06/21 06:19 Labs: Abnormal Lab Results - Last 24 Hours (Table) 09/04/21 09/05/21 09/05/21 Range/Units 17:38 04:59 04:59 WBC 11.31 H (4.50-10.00) X 10*3/uL RBC 3.10 L (4.10-5.20) X 10*6/uL Hgb 8.4 L (12.0-15.0) g/dL Hct 27.6 L (37.2-46.3) % MCHC 30.4 L (32.0-37.0) g/dL RDW 16.7 H (11.5-14.5) % Immature Gran # 0.16 H (0.00-0.04) X 10*3/uL Neutrophils # 7.82 H (1.80-7.70) X 10*3/uL Monocytes # 1.09 H (0.20-1.00) X 10*3/uL Eosinophils # 0.61 H (0.04-0.35) X 10*3/uL Carbon Dioxide 19.6 L (20.0-27.5) mmol/L Anion Gap 9.40 L (10.00-18.00) mmol/L BUN 32.7 H (9.0-27.0) mg/dL Est GFR (CKD-EPI)AfAm 51.6 L (60.0-200.0) Est GFR (CKD-EPI)NonAf 44.5 L (60.0-200.0) BUN/Creatinine Ratio 27.25 H (12.00-20.00) Ratio Glucose 115 H (70-110) mg/dL POC Glucose (mg/dL) 109 H (75-99) mg/dL Calcium 8.4 L (8.7-10.3) mg/dL Total Bilirubin <0.15 L (0.30-1.20) mg/dL Alkaline Phosphatase 182 H (41-126) U/L Total Protein 5.2 L (6.2-8.2) g/dL Albumin 3.0 L (3.8-4.9) g/dL Albumin/Globulin Ratio 1.36 L (1.60-3.17) g/dL 09/05/21 Range/Units 05:53 WBC (4.50-10.00) X 10*3/uL RBC (4.10-5.20) X 10*6/uL Hgb (12.0-15.0) g/dL Hct (37.2-46.3) % MCHC (32.0-37.0) g/dL RDW (11.5-14.5) % Immature Gran # (0.00-0.04) X 10*3/uL Neutrophils # (1.80-7.70) X 10*3/uL Monocytes # (0.20-1.00) X 10*3/uL Eosinophils # (0.04-0.35) X 10*3/uL Carbon Dioxide (20.0-27.5) mmol/L Anion Gap (10.00-18.00) mmol/L BUN (9.0-27.0) mg/dL Est GFR (CKD-EPI)AfAm (60.0-200.0) Est GFR (CKD-EPI)NonAf (60.0-200.0) BUN/Creatinine Ratio (12.00-20.00) Ratio Glucose (70-110) mg/dL POC Glucose (mg/dL) 134 H (75-99) mg/dL Calcium (8.7-10.3) mg/dL Total Bilirubin (0.30-1.20) mg/dL Alkaline Phosphatase (41-126) U/L Total Protein (6.2-8.2) g/dL Albumin (3.8-4.9) g/dL Albumin/Globulin Ratio (1.60-3.17) g/dL Microbiology - Last 24 Hours (Table) 09/01/21 18:41 Blood Culture - Preliminary Blood No Growth after 72 hours 09/01/21 18:56 Blood Culture - Preliminary Blood No Growth after 72 hours Assessment and Plan (1) Aspiration pneumonia Current Visit: No Status: Acute Code(s): J69.0 - PNEUMONITIS DUE TO INHALATION OF FOOD AND VOMIT SNOMED Code(s): 716598981 Plan: 1patient presented to hospital with weakness multiple falls in this patient who did have history of gastrectomy and is maintained on TPN in the outpatient setting concerning for recurrent aspiration pneumonia in this patient currently responding to the Zosyn. 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 3patient benefit from possible jejunostomy tube for feeding that will hopefully prevent recurrent aspiration pneumonia and also line related sepsis secondary to the PICC line and TPN need, Gen. surgery has been consulted and will see the recommendation 4- patient to continue with Zosyn in view of clinical response. Time with Patient: Less than 30
--- NOTE | 2021-09-06 15:29 | P.PN ---
Subjective Progress Note Date: 09/06/21 Principal diagnosis: Recurrent aspiration pneumonia Patient is a 76-year-old female with a past medical history significant for gastrectomy, history of recurrent aspiration pneumonia and Central line Infection which the patient uses for TPN, presented to hospital with weakness and fall and has been diagnosed with aspiration pneumonia. On today's evaluation that is 09/06/2021, patient remains to be afebrile, the patient is breathing comfortably on room air denies any chest pain still have some cough but not bringing up any sputum complaining of some abdominal pain but no vomiting or diarrhea Objective - Vital Signs Vital signs: Vital Signs Temp 97.9 F 09/06/21 08:00 Pulse 82 09/06/21 08:00 Resp 16 09/06/21 07:35 BP 123/77 09/06/21 08:00 Pulse Ox 96 09/06/21 08:00 Intake & Output 09/05/21 09/06/21 09/06/21 18:59 06:59 18:59 Weight 43.9 kg Other: Voiding Method Bedside Commode Bedside Commode Bedside Commode # Voids 4 2 - Exam GENERAL DESCRIPTION: An elderly female lying in bed in no distress RESPIRATORY SYSTEM: Unlabored breathing , decreased breath sounds at bases HEART: S1 S2 regular rate and rhythm , ABDOMEN: Soft , no tenderness EXTREMITIES: No edema feet - Labs CBC & Chem 7: 09/05/21 04:59 09/06/21 06:19 Labs: Abnormal Lab Results - Last 24 Hours (Table) 09/05/21 09/05/21 09/06/21 Range/Units 16:58 23:54 06:19 Anion Gap 8.30 L (10.00-18.00) mmol/L BUN 34.9 H (9.0-27.0) mg/dL Est GFR (CKD-EPI)AfAm 49.1 L (60.0-200.0) Est GFR (CKD-EPI)NonAf 42.3 L (60.0-200.0) BUN/Creatinine Ratio 27.92 H (12.00-20.00) Ratio POC Glucose (mg/dL) 106 H 116 H (75-99) mg/dL 09/06/21 Range/Units 11:35 Anion Gap (10.00-18.00) mmol/L BUN (9.0-27.0) mg/dL Est GFR (CKD-EPI)AfAm (60.0-200.0) Est GFR (CKD-EPI)NonAf (60.0-200.0) BUN/Creatinine Ratio (12.00-20.00) Ratio POC Glucose (mg/dL) 107 H (75-99) mg/dL Microbiology - Last 24 Hours (Table) 09/01/21 18:41 Blood Culture - Preliminary Blood No Growth after 96 hours 09/01/21 18:56 Blood Culture - Preliminary Blood No Growth after 96 hours Assessment and Plan (1) Aspiration pneumonia Current Visit: No Status: Acute Code(s): J69.0 - PNEUMONITIS DUE TO INHALATION OF FOOD AND VOMIT SNOMED Code(s): 218967638 Plan: 1patient presented to hospital with weakness multiple falls in this patient who did have history of gastrectomy and is maintained on TPN in the outpatient setting concerning for recurrent aspiration pneumonia in this patient currently responding to the Zosyn. 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 3patient benefit from possible jejunostomy tube for feeding that will hopefully prevent recurrent aspiration pneumonia and also line related sepsis secondary to the PICC line and TPN need, Gen. surgery has seen the patient and waiting for their final recommendation 4- patient to continue with Zosyn and monitor clinical response closely. Time with Patient: Less than 30
[2021-09-06 18:00] LABS: Glucose,Whole Blood 165 mg/dL (75-99)
[2021-09-06] MEDS: ALBUTEROL NEBULIZED 2.5 MG/3 ML INHALATION PRN (19:06)
[2021-09-06] MEDS: MIRTAZAPINE 45 MG TABLET PO SCH (22:13)
[2021-09-06 23:31] LABS: Glucose,Whole Blood 100 mg/dL (75-99)
[2021-09-07] MEDS: BUTALB/APAP/CAFF 50-325-40MG TAB PO SCH ×4 (01:31→19:22)
[2021-09-07] MEDS ORDERED: CALCIUM GLUCONATE IV SCH ×6 (04:00)
[2021-09-07] MEDS ORDERED: SODIUM ACETATE IV SCH ×6 (04:00)
[2021-09-07] MEDS ORDERED: MAGNESIUM SULFATE IV SCH ×6 (04:00)
[2021-09-07] MEDS ORDERED: [UNRECOGNIZED DRUG - OTHER] IV SCH ×6 (04:00)
[2021-09-07] MEDS: PIPERACILLIN-TAZOBACTAM 3.375 GM in SODIUM CHLORIDE 0.9% 100 ML IVPB SCH ×3 (04:04→19:23)
[2021-09-07] MEDS: SODIUM CHLORIDE 0.9% 1,000 ML IV SCH ×2 (04:18→16:39)
[2021-09-07] MEDS: HYDROmorphone 2 MG TAB PO PRN ×4 (04:19→23:36)
[2021-09-07 05:23] LABS: Glucose,Whole Blood 133 mg/dL (75-99)
[2021-09-07] MEDS: INSULIN ASPART (NovoLOG) 100 UNIT/ML VIAL SQ SCH ×4 (05:28→23:43)
[2021-09-07] MEDS: METHADONE 10 MG TAB PO SCH ×2 (05:37→16:07)
[2021-09-07] MEDS: LEVOTHYROXINE 100 MCG TAB PO SCH (05:38)
[2021-09-07] MEDS: buPROPion XL 150 MG TAB.ER.24H PO SCH (08:10)
[2021-09-07] MEDS: busPIRone HCl 10 MG TAB PO SCH ×2 (08:10→21:35)
[2021-09-07] MEDS: PANTOPRAZOLE 40 MG TABLET PO SCH (08:11)
[2021-09-07] MEDS: hydrOXYzine pamoate 25 MG CAP PO SCH ×3 (08:11→21:35)
[2021-09-07] MEDS: FERROUS SULFATE 325 MG TAB PO SCH (08:11)
[2021-09-07] MEDS: ASPIRIN 81 MG PO SCH (08:11)
[2021-09-07] MEDS: ENOXAPARIN 30 MG/0.3 ML SYRINGE SQ SCH (08:12)
[2021-09-07] MEDS: SYMBICORT 160-4.5 MCG INHALER INHALATION SCH ×2 (08:35→20:05)
[2021-09-07] MEDS: SODIUM BICARBONATE TAB 650 MG TAB PO SCH (09:09)
[2021-09-07 09:40] LABS: Basophils # (A) 0.06 X 10*3/uL (0.00-0.10); Basophils % (A) 0.6 %; Eosinophils # (A) 0.52 X 10*3/uL (0.04-0.35); Eosinophils % (A) 4.9 %; HCT 26.8 % (37.2-46.3); HGB 8.1 g/dL (12.0-15.0); Immature Grans, Automated 0.8 %; Lymphocytes # (A) 1.56 X 10*3/uL (0.90-5.00); Lymphocytes % (A) 14.7 %; MCH 26.9 pg (27.0-32.0); MCHC 30.2 g/dL (32.0-37.0); Monocytes # (A) 0.96 X 10*3/uL (0.20-1.00); Monocytes % (A) 9.1 %; NRBC Per 100 WBC 0 /100 WBCS (0.0-0.0); Neutrophils % (A) 69.9 %; Platelet Count 411 X 10*3/uL (140-440); RBC 3.01 X 10*6/uL (4.10-5.20); RDW 16.7 % (11.5-14.5); WBC 10.59 X 10*3/uL (4.50-10.00)
[2021-09-07 10:02] LABS: ALT 34 U/L (8-44); AST 25 U/L (13-35); African American GFR (CKD) 49.1 (60.0-200.0); Albumin 3.2 g/dL (3.8-4.9); Albumin/Globulin Ratio 1.47 (1.60-3.17); Alkaline Phosphatase 179 U/L (41-126); BUN/Creat Ratio 29.12 Ratio (12.00-20.00); Blood Urea Nitrogen 36.4 mg/dL (9.0-27.0); Calcium 8.9 mg/dL (8.7-10.3); Carbon Dioxide 22.3 mmol/L (20.0-27.5); Chloride 108 mmol/L (96-109); Globulin 2.2 g/dL (1.6-3.3); Glucose 126 mg/dL (70-110); Magnesium 2.1 mg/dL (1.5-2.4); Non-African American GFR(CKD) 42.3 (60.0-200.0); Phosphorus 3.7 mg/dL (2.4-5.1); Potassium 5.7 mmol/L (3.5-5.5); Sodium 138 mmol/L (135-145); Total Bilirubin <0.15 mg/dL (0.30-1.20); Total Protein 5.3 g/dL (6.2-8.2)
--- NOTE | 2021-09-07 10:42 | P.PN ---
Subjective Progress Note Date: 09/07/21 This is a 76-year-old white female patient who is well-known to our service from multiple hospitalizations for recurrent aspiration pneumonia. Patient had a history of previous gastrectomy, chronic dysphagia, recurrent aspiration pneumonia, chronic malnutrition and failure to thrive, patient is maintained on TPN in addition to a soft diet by mouth. Patient also has history of chronic kidney disease stage III, hypothyroidism, migraine headaches, chronic pain syndrome, history of CVA, and history of PICC line infection and sepsis. Patient came into the emergency department on 09/01/2021 for evaluation of a fall, and pain in left hip, bilateral shoulders, and patient apparently bumped her head in the fall as well. She had a recent adjustment of her methadone dose which was increased to 20 mg in the morning and 10 mg at night and the dose increased made her fatigued and lightheaded. She reports coughing up some green colored phlegm, no hemoptysis, no chest discomfort. Her chest x-ray showing bilateral airspace consolidation which had increased since her last chest x-ray from 08/08/2021. X-ray of the left hip showed left hip prosthesis, no fracture or dislocation. X-ray of the pelvis showed no acute abnormality of the pelvis, no fracture. CT of the brain and cervical spine was completed showing no acute intracranial abnormality, and mild degenerative hypertrophic changes in the c ervical spine, no fracture. There were nodular infiltrates at the lung apices there were also seen on CT from 01/28/2021. Room air pulse ox in the 100%, afebrile, hemodynamics stable. Admission labs have been reviewed showing white blood cell count of 16.9, hemoglobin 12.2, sodium of 141, potassium is 4.2, CO2 was 18, BUN was 38, creatinine is 1.7, CRP was elevated at 15.5, lipase was normal at 75, troponin was less than 0.012, alkaline phosphatase was 321, ALT was 36, and AST was 27, urinalysis showed mildly increased white blood cells at 13, 1+ ketones, small amount of leukocyte esterase, she tested negative for COVID 19, influenza A and B. On 09/03/2021 patient seen in follow-up on medical surgical floor, she is breathing comfortably, only occasional cough, no chest discomfort. No hemoptysis, no phlegm production. No wheezing, lung sounds are clear, diminished at the bases, no rhonchi or crackles noted. Room air pulse ox is 98%, afebrile. Today's labs have been reviewed, white blood cell count is 13.5, hemoglobin is 10.2, sodium is 137, potassium 3.3, CO2 is 19, BUN is 31, and creatinine is 1.26, renal function is improving. Pro-calcitonin level was 0.28. Patient remains on azithromycin and Rocephin for possibility of aspiration related pneumonia. She is tolerating soft diet in the form of pudding, she continues on TPN which is running at 30 ML per hour, and IV hydration with 20#. A 50 ML per hour The patient is seen today 09/04/2021 in follow-up on the regular medical floor. She is currently sitting up in bed. Awake and alert in no acute distress. Maintaining good O2 saturations up to 99% on room air. She's been afebrile. Hemodynamically stable. She continues with a loose nonproductive cough. She was having complaints of epigastric pain. Ultrasound revealed no acute abdominal abnormalities and blood cultures revealed no growth. Urine culture revealed no growth. White count 11.1. Hemoglobin 9.0. Sodium 137. Potassium 4.3. BUN 27. Creatinine 1.2. Glucose 116. AST 15. ALT 22. Alk phos 202. Albumin 3.0. She remains on TPN at 50 MLS per hour. Normal saline at 100 ML's per hour. She remains on antibiotics in the form of Zosyn. The patient is seen today 09/05/2021 in follow-up on the regular medical floor. She is awake and alert in no acute distress. She continues with a loose cough. She had been seen and evaluated by ID services who is recommending a possible jejunostomy tube placement to avoid continued aspiration pneumonias. She is continued on TPN for now. Blood cultures had revealed no growth. Urine culture revealed no growth. White count 11.3. Hemoglobin 8.4. Sodium 137. Potassium 5.1. BUN 33. Creatinine 1.2. Glucose 115. Albumin 3.0. She remains on antibiotics in the form of Zosyn. Continued on bronchodilators. Lovenox for DVT prophylaxis. The patient is seen today 09/07/2001 in follow-up on the regular medical floor. She is currently resting comfortably in bed. Awake and alert in no acute distress. Continues to maintain good O2 saturations in the 90s on room air. Blood cultures revealed no growth. Urine culture reveals no growth. White count 10.5. Hemoglobin 8.1. Sodium 138. Potassium 5.7. BUN 36. Creatinine 1.3. Glucose 126. AST 25. ALT 34. She remains on antibiotics in the form of Zosyn. Continued on TPN at 50 MLS per hour. Remains in aspiration precautions. No plans for jejunostomy tube placement here at this facility per surgical services. Her gastrectomy had been performed at the [facility]. Objective - Vital Signs Vital signs: Vital Signs Temp 98.3 F 09/07/21 07:36 Pulse 88 09/07/21 07:36 Resp 16 09/07/21 07:36 BP 138/74 09/07/21 07:36 Pulse Ox 98 09/07/21 07:36 Intake & Output 09/06/21 09/07/21 09/07/21 18:59 06:59 18:59 Weight 43.9 kg Other: Voiding Method Bedside Commode Toilet Bedside Commode # Voids 5 4 - Exam GENERAL EXAM: Alert, 76-year-old female patient, cachectic, on room air, comfortable in no distress. HEAD: Normocephalic/atraumatic. EYES: Normal reaction of pupils, equal size. Conjunctiva pink, sclera white. NOSE: Clear with pink turbinates. THROAT: No erythema or exudates. NECK: No masses, no JVD, no thyroid enlargement, no adenopathy. CHEST: No chest wall deformity. Symmetrical expansion. LUNGS: Equal air entry with few scattered rhonchi. CVS: Regular rate and rhythm, normal S1 and S2, no gallops, no murmurs, no rubs ABDOMEN: Soft, nontender. No hepatosplenomegaly, normal bowel sounds, no guarding or rigidity. EXTREMITIES: No clubbing, no edema, no cyanosis, 2+ pulses and upper and lower extremities. MUSCULOSKELETAL: Muscle strength and tone normal. SPINE: No scoliosis or deformity SKIN: No rashes CENTRAL NERVOUS SYSTEM: No focal deficits, tone is normal in all 4 extremities. PSYCHIATRIC: Alert and oriented -3. Appropriate affect. Intact judgment and insight. - Labs CBC & Chem 7: 09/07/21 04:22 09/07/21 04:22 Labs: Abnormal Lab Results - Last 24 Hours (Table) 09/06/21 09/06/21 09/06/21 Range/Units 11:35 17:59 23:29 WBC (4.50-10.00) X 10*3/uL RBC (4.10-5.20) X 10*6/uL Hgb (12.0-15.0) g/dL Hct (37.2-46.3) % MCH (27.0-32.0) pg MCHC (32.0-37.0) g/dL RDW (11.5-14.5) % MPV (9.5-12.2) fL Immature Gran # (0.00-0.04) X 10*3/uL Eosinophils # (0.04-0.35) X 10*3/uL Potassium (3.5-5.5) mmol/L Anion Gap (10.00-18.00) mmol/L BUN (9.0-27.0) mg/dL Est GFR (CKD-EPI)AfAm (60.0-200.0) Est GFR (CKD-EPI)NonAf (60.0-200.0) BUN/Creatinine Ratio (12.00-20.00) Ratio Glucose (70-110) mg/dL POC Glucose (mg/dL) 107 H 165 H 100 H (75-99) mg/dL Total Bilirubin (0.30-1.20) mg/dL Alkaline Phosphatase (41-126) U/L Total Protein (6.2-8.2) g/dL Albumin (3.8-4.9) g/dL Albumin/Globulin Ratio (1.60-3.17) g/dL 09/07/21 09/07/21 09/07/21 Range/Units 04:22 04:22 05:22 WBC 10.59 H (4.50-10.00) X 10*3/uL RBC 3.01 L (4.10-5.20) X 10*6/uL Hgb 8.1 L (12.0-15.0) g/dL Hct 26.8 L (37.2-46.3) % MCH 26.9 L (27.0-32.0) pg MCHC 30.2 L (32.0-37.0) g/dL RDW 16.7 H (11.5-14.5) % MPV 9.0 L (9.5-12.2) fL Immature Gran # 0.09 H (0.00-0.04) X 10*3/uL Eosinophils # 0.52 H (0.04-0.35) X 10*3/uL Potassium 5.7 H (3.5-5.5) mmol/L Anion Gap 8.30 L (10.00-18.00) mmol/L BUN 36.4 H (9.0-27.0) mg/dL Est GFR (CKD-EPI)AfAm 49.1 L (60.0-200.0) Est GFR (CKD-EPI)NonAf 42.3 L (60.0-200.0) BUN/Creatinine Ratio 29.12 H (12.00-20.00) Ratio Glucose 126 H (70-110) mg/dL POC Glucose (mg/dL) 133 H (75-99) mg/dL Total Bilirubin <0.15 L (0.30-1.20) mg/dL Alkaline Phosphatase 179 H (41-126) U/L Total Protein 5.3 L (6.2-8.2) g/dL Albumin 3.2 L (3.8-4.9) g/dL Albumin/Globulin Ratio 1.47 L (1.60-3.17) g/dL Microbiology - Last 24 Hours (Table) 09/01/21 18:56 Blood Culture - Preliminary Blood No Growth after 120 hours 09/01/21 18:41 Blood Culture - Preliminary Blood No Growth after 120 hours Assessment and Plan Assessment: 1 Dyspnea, cough related to recurrent aspiration, with suspected recurrent aspiration related pneumonia 2 Fall at home, following methadone dose increase, CT of the brain, cervical spine, left hip and pelvis showed no acute findings, no acute fracture or dislocation 3 Acute kidney injury, related to ATN, improving 4 Chronic kidney disease stage III at baseline 5 Malnutrition and failure to thrive 6 Recurrent aspiration with multiple hospitalizations, patient is currently on TPN for nutritional support in addition to some oral feedings on soft diet 7 History of gastrectomy 8 Recent hospitalization for urinary tract infection, related to enterococcus faecalis 9 Chronic pain syndrome 10 Previous history of CVA 11 History of hypothyroidism 12 History of spinal stenosis and chronic back pain 13 History of chronic anemia of chronic disease 14 Anxiety/depression Plan: The patient was seen and evaluated Stable and on room air Currently on Zosyn Remains on aspiration precautions Encouraged against oral intake Remains on TPN for now May require jejunostomy tube placement Her gastrectomy had performed at [facility] No plans for surgery at this facility I have personally seen and examined the patient, performed the documentation and the assessment and plan as written. Number of minutes spent on the visit: 10.
[2021-09-07 11:46] LABS: Glucose,Whole Blood 105 mg/dL (75-99)
[2021-09-07] MEDS: IPRATROPIUM-ALBUTEROL 3 ML NEB INHALATION PRN (12:23)
--- NOTE | 2021-09-07 13:45 | P.PN ---
Subjective Progress Note Date: 09/07/21 CHIEF COMPLAINT: Aspiration pneumonia HISTORY OF PRESENT ILLNESS: The patient is a 76-year-old female with complex surgical history where her surgeries are performed at [facility] who presents with chronic aspiration pneumonia. She is tolerating diet at bedside. She is aware not to overeat. ROS: No fevers or chills. No new chest pain. Underway, BMI 17 point PHYSICAL EXAM: VITAL SIGNS: Reviewed CONSTITUTIONAL: Well developed and in no acute distress. EYES: Conjuctivae without sclera icterus. Extraocular movements grossly intact. HEAD, EARS, NOSE, THROAT: Moist buccal mucosa. Head is atraumatic, normocephalic. Hears conversational speech. No nasal drainage. RESPIRATORY: Non-labored respirations and equal bilateral excursions. CARDIOVASCULAR: Palpable 2+ radial pulses. ABDOMEN: Scaphoid. No peritonitis. MUSCULOSKELETAL: No gross deformity of the lower extremities noted. No clubbing. No cyanosis. SKIN: Good skin turgor. Well perfused. NEUROLOGIC: Cranial nerves II through XII grossly intact. No focal or lateralizing signs. PSYCH: Appropriate affect. Alert and oriented to person, place and time. CLINICAL LABS: Reviewed. WBC elevated over 10.0, leukocytosis ASSESSMENT: 1. Recurrent aspiration pneumonia 2. Leukocytosis 3. Underweight. PLAN: 1. Defer surgical management to [facility] for elective placement of feeding tube 2. Diet as tolerated Objective - Vital Signs Vital signs: Vital Signs Temp 98.3 F 09/07/21 07:36 Pulse 88 09/07/21 07:36 Resp 16 09/07/21 07:36 BP 138/74 09/07/21 07:36 Pulse Ox 98 09/07/21 07:36 Intake & Output 09/06/21 09/07/21 09/07/21 18:59 06:59 18:59 Weight 43.9 kg Other: Voiding Method Bedside Commode Toilet Bedside Commode # Voids 5 4 - Labs CBC & Chem 7: 09/07/21 04:22 09/07/21 04:22 Labs: Abnormal Lab Results - Last 24 Hours (Table) 09/06/21 09/06/21 09/06/21 Range/Units 11:35 17:59 23:29 WBC (4.50-10.00) X 10*3/uL RBC (4.10-5.20) X 10*6/uL Hgb (12.0-15.0) g/dL Hct (37.2-46.3) % MCH (27.0-32.0) pg MCHC (32.0-37.0) g/dL RDW (11.5-14.5) % MPV (9.5-12.2) fL Immature Gran # (0.00-0.04) X 10*3/uL Eosinophils # (0.04-0.35) X 10*3/uL Potassium (3.5-5.5) mmol/L Anion Gap (10.00-18.00) mmol/L BUN (9.0-27.0) mg/dL Est GFR (CKD-EPI)AfAm (60.0-200.0) Est GFR (CKD-EPI)NonAf (60.0-200.0) BUN/Creatinine Ratio (12.00-20.00) Ratio Glucose (70-110) mg/dL POC Glucose (mg/dL) 107 H 165 H 100 H (75-99) mg/dL Total Bilirubin (0.30-1.20) mg/dL Alkaline Phosphatase (41-126) U/L Total Protein (6.2-8.2) g/dL Albumin (3.8-4.9) g/dL Albumin/Globulin Ratio (1.60-3.17) g/dL 09/07/21 09/07/21 09/07/21 Range/Units 04:22 04:22 05:22 WBC 10.59 H (4.50-10.00) X 10*3/uL RBC 3.01 L (4.10-5.20) X 10*6/uL Hgb 8.1 L (12.0-15.0) g/dL Hct 26.8 L (37.2-46.3) % MCH 26.9 L (27.0-32.0) pg MCHC 30.2 L (32.0-37.0) g/dL RDW 16.7 H (11.5-14.5) % MPV 9.0 L (9.5-12.2) fL Immature Gran # 0.09 H (0.00-0.04) X 10*3/uL Eosinophils # 0.52 H (0.04-0.35) X 10*3/uL Potassium 5.7 H (3.5-5.5) mmol/L Anion Gap 8.30 L (10.00-18.00) mmol/L BUN 36.4 H (9.0-27.0) mg/dL Est GFR (CKD-EPI)AfAm 49.1 L (60.0-200.0) Est GFR (CKD-EPI)NonAf 42.3 L (60.0-200.0) BUN/Creatinine Ratio 29.12 H (12.00-20.00) Ratio Glucose 126 H (70-110) mg/dL POC Glucose (mg/dL) 133 H (75-99) mg/dL Total Bilirubin <0.15 L (0.30-1.20) mg/dL Alkaline Phosphatase 179 H (41-126) U/L Total Protein 5.3 L (6.2-8.2) g/dL Albumin 3.2 L (3.8-4.9) g/dL Albumin/Globulin Ratio 1.47 L (1.60-3.17) g/dL Microbiology - Last 24 Hours (Table) 09/01/21 18:56 Blood Culture - Preliminary Blood No Growth after 120 hours 09/01/21 18:41 Blood Culture - Preliminary Blood No Growth after 120 hours
--- NOTE | 2021-09-07 13:55 | P.PN ---
Subjective Progress Note Date: 09/07/21 Louise Sutton, is a 76-year-old female who presented to [facility] emergency room with a chief complaint of fatigue and cough of yellow greenish phlegm. She was evaluated in the emergency room vital examination on presentation revealed a temperature of 97.8 pulse 113 respiration 18 and blood pressure 119/69 pulse ox 98% on room air Laboratory data revealed a white blood count of 16.9 hemoglobin 12.2 platelet count 564 BUN 38 creatinine 1.77 Testing in the emergency room revealed chest x-ray done in the emergency room revealed bilateral infiltrate suggestive of pneumonia Patient was admitted to medical floor for further evaluation and treatment Past medical history is significant for history of gastrectomy, history of failure to thrive maintained on TPN, history of recurrent reflux with recurrent aspiration pneumonia, history of chronic kidney disease previous history of stroke history of hypothyroidism history of spinal stenosis with chronic back pain. On 09/03/2021 was seen and examined on the medical floor she is alert and oriented 3 in no apparent distress she is still complaining of occasional cough and shortness of breath with activity, today she is also complaining of pain and burning sensation in the epigastric area, otherwise she denies any complaints there is no fever or chills no headache or dizziness no chest pain no nausea or vomiting no diarrhea and no urinary symptoms On 09/04/2021 patient is alert and oriented 3. Patient remains on room air. [facility] services are following. Patient remains on TPN. Patient remains on IV antibiotics Zosyn. Patient reports some shortness of breath. Patient denies nausea vomiting or diarrhea. Patient denies any urinary burning or frequency. On 09/05/2021 patient is alert and oriented 3 in no apparent distress she is still complaining of cough and shortness of breath with activity otherwise she denies any complaints there is no fever or chills no headache or dizziness no chest pain no abdominal pain no nausea or vomiting no diarrhea no blood in the stools no burning with urination no frequency or urgency no hematuria 09/06/2021 patient is alert and oriented 3. Patient complaining of chronic pain. She was evaluated by surgical services for possible J-tube placement. Patient remains on IV Zosyn per infectious disease. Patient denies chest pain. Patient denies nausea vomiting or diarrhea. Patient denies any urinary burning or frequency. Patient remains on TPN On 09/07/2021 patient was seen and examined on the medical floor she is alert and oriented 3 in no apparent distress, she is complaining of occasional cough , also she is complaining of pain especially at night and is requesting to increase in her afternoon dose of methadone, otherwise she denies any complaints there is no fever or chills no headache or dizziness no chest pain no shortness of breath no cough no nausea or vomiting no abdominal pain no diarrhea and no urinary symptoms. Vital exam reveals a temperature of 98.3 pulse 88 respiration 16 blood pressure 138/74 pulse ox 98% on room air, laboratory data reveals a white blood count of 10.5 hemoglobin 8.1 platelet count 411 sodium 138 potassium 5.7 chloride 108 CO2 22 BUN 36 creatinine 1.3 Objective - Vital Signs Vital signs: Vital Signs Temp 98.0 F 09/07/21 01:54 Pulse 84 09/07/21 01:54 Resp 16 09/07/21 01:54 BP 112/61 09/07/21 01:54 Pulse Ox 98 09/07/21 01:54 Intake & Output 09/06/21 09/07/21 09/07/21 18:59 06:59 18:59 Weight 43.9 kg Other: Voiding Method Bedside Commode Toilet Bedside Commode # Voids 5 4 - Exam In general patient is alert and oriented x 3 in no distress HEENT head normocephalic and atraumatic Neck is supple no JVD no goiter no lymphadenopathy no carotid bruit Chest examination reveals a scattered crackles bilaterally Cardiac exam reveals regular heart sounds S1 and S2 no gallops no murmurs Abdomen is soft nontender no organomegaly with normal bowel sounds Extremity exam reveals no edema no cyanosis or clubbing Neurological examination reveals no gross focal deficits - Labs CBC & Chem 7: 09/07/21 04:22 09/07/21 04:22 Labs: Abnormal Lab Results - Last 24 Hours (Table) 09/06/21 09/06/21 09/06/21 Range/Units 06:19 11:35 17:59 Anion Gap 8.30 L (10.00-18.00) mmol/L BUN 34.9 H (9.0-27.0) mg/dL Est GFR (CKD-EPI)AfAm 49.1 L (60.0-200.0) Est GFR (CKD-EPI)NonAf 42.3 L (60.0-200.0) BUN/Creatinine Ratio 27.92 H (12.00-20.00) Ratio POC Glucose (mg/dL) 107 H 165 H (75-99) mg/dL 09/06/21 09/07/21 Range/Units 23:29 05:22 Anion Gap (10.00-18.00) mmol/L BUN (9.0-27.0) mg/dL Est GFR (CKD-EPI)AfAm (60.0-200.0) Est GFR (CKD-EPI)NonAf (60.0-200.0) BUN/Creatinine Ratio (12.00-20.00) Ratio POC Glucose (mg/dL) 100 H 133 H (75-99) mg/dL Microbiology - Last 24 Hours (Table) 09/01/21 18:56 Blood Culture - Preliminary Blood No Growth after 120 hours 09/01/21 18:41 Blood Culture - Preliminary Blood No Growth after 120 hours Assessment and Plan Plan: Pneumonia, possibly related to aspiration Acute kidney injury Failure to thrive patient is maintained on TPN, she has a known history of gastrectomy in the past Recent fall at home, no evidence of injury on CT scan of the brain and cervical spine and left hip x-ray done in the emergency room Underlying history of hypothyroidism Underlying history of spinal stenosis with chronic back pain Underlying history of chronic kidney disease Known history of CVA in the past Underlying history of depression and anxiety disorder Pain and burning sensation in the epigastric area. Amylase and lipase within normal limits. Abdomen ultrasound completed showing no acute abnormality At this time patient is admitted to medical floor Home medications reviewed and reordered She was started on IV hydration and IV antibiotics Continue was TPN Pulmonary consultation requested Surgical service is consulted for pulmonary for possible J-tube placement For DVT prophylaxis we will use Lovenox Will follow closely
[2021-09-07 16:48] LABS: Glucose,Whole Blood 114 mg/dL (75-99)
[2021-09-07] MEDS: MIRTAZAPINE 45 MG TABLET PO SCH (21:35)
[2021-09-07] MEDS ORDERED: SODIUM POLYSTYRENE SULFONATE 15 GM/60 ML BOTTLE PO ONE (22:28)
[2021-09-07 23:44] LABS: Glucose,Whole Blood 87 mg/dL (75-99)
[2021-09-08] MEDS: SODIUM ACETATE IV SCH ×12 (00:41→21:01)
[2021-09-08] MEDS: SODIUM CHLORIDE 0.9% 1,000 ML IV SCH ×3 (00:41→21:01)
[2021-09-08] MEDS: CALCIUM CHLORIDE IV SCH ×12 (00:41→21:01)
[2021-09-08] MEDS: [UNRECOGNIZED DRUG - OTHER] IV SCH ×12 (00:41→21:01)
[2021-09-08] MEDS: MAGNESIUM SULFATE IV SCH ×12 (00:41→21:01)
[2021-09-08] MEDS: BUTALB/APAP/CAFF 50-325-40MG TAB PO SCH ×4 (01:35→19:05)
[2021-09-08] MEDS: PIPERACILLIN-TAZOBACTAM 3.375 GM in SODIUM CHLORIDE 0.9% 100 ML IVPB SCH ×3 (03:59→19:06)
[2021-09-08 05:11] LABS: Glucose,Whole Blood 113 mg/dL (75-99)
[2021-09-08] MEDS: INSULIN ASPART (NovoLOG) 100 UNIT/ML VIAL SQ SCH ×4 (05:12→23:22)
[2021-09-08] MEDS: METHADONE 10 MG TAB PO SCH ×2 (05:14→20:58)
[2021-09-08] MEDS: LEVOTHYROXINE 100 MCG TAB PO SCH (05:16)
[2021-09-08] MEDS: HYDROmorphone 2 MG TAB PO PRN ×2 (07:31→14:05)
[2021-09-08] MEDS: PANTOPRAZOLE 40 MG TABLET PO SCH (07:32)
[2021-09-08] MEDS: buPROPion XL 150 MG TAB.ER.24H PO SCH (07:32)
[2021-09-08] MEDS: hydrOXYzine pamoate 25 MG CAP PO SCH ×3 (07:32→20:59)
[2021-09-08] MEDS: SODIUM BICARBONATE TAB 650 MG TAB PO SCH (07:32)
[2021-09-08] MEDS: FERROUS SULFATE 325 MG TAB PO SCH (07:32)
[2021-09-08] MEDS: ASPIRIN 81 MG PO SCH (07:32)
[2021-09-08] MEDS: busPIRone HCl 10 MG TAB PO SCH ×2 (07:32→22:54)
[2021-09-08] MEDS: ENOXAPARIN 30 MG/0.3 ML SYRINGE SQ SCH (07:36)
[2021-09-08] MEDS: SYMBICORT 160-4.5 MCG INHALER INHALATION SCH ×2 (08:17→19:48)
[2021-09-08] MEDS: IPRATROPIUM-ALBUTEROL 3 ML NEB INHALATION PRN ×3 (08:17→15:56)
[2021-09-08 10:05] LABS: African American GFR (CKD) 46.8 (60.0-200.0); Anion Gap 11.3 mmol/L (10.00-18.00); BUN/Creat Ratio 32.23 Ratio (12.00-20.00); Blood Urea Nitrogen 41.9 mg/dL (9.0-27.0); Calcium 8.9 mg/dL (8.7-10.3); Carbon Dioxide 22.7 mmol/L (20.0-27.5); Magnesium 2.2 mg/dL (1.5-2.4); Non-African American GFR(CKD) 40.4 (60.0-200.0); Phosphorus 3.2 mg/dL (2.4-5.1); Potassium 4.9 mmol/L (3.5-5.5)
--- NOTE | 2021-09-08 11:01 | XR ---
EXAMINATION TYPE: XR chest 1V portable DATE OF EXAM: 09/08/2021 CLINICAL HISTORY: Difficulty breathing and pneumonia progress study. TECHNIQUE: Single AP portable upright view of the chest is obtained. COMPARISON: Chest x-ray from 6 days earlier FINDINGS: Stable left-sided PICC line. Chronic parenchymal changes with persistent left mid lung and right suprahilar lung with patchy right basilar opacity. Improved aeration left lower lung. Cardiac silhouette size stable and within normal limits. Surgical clips epigastric region are seen. Old fract ure deformity left clavicle redemonstrated. IMPRESSION: Chronic changes with persistent bilateral midlung opacities favoring acute infiltrates an d right basilar acute infiltrate and/or atelectasis. Some improved aeration left lung base noted from most recent prior.
[2021-09-08] MEDS: ONDANSETRON 4 MG TAB PO PRN (11:46)
[2021-09-08 11:56] LABS: Glucose,Whole Blood 133 mg/dL (75-99)
--- NOTE | 2021-09-08 13:07 | P.PN ---
Subjective Progress Note Date: 09/08/21 This is a 76-year-old white female patient who is well-known to our service from multiple hospitalizations for recurrent aspiration pneumonia. Patient had a history of previous gastrectomy, chronic dysphagia, recurrent aspiration pneumonia, chronic malnutrition and failure to thrive, patient is maintained on TPN in addition to a soft diet by mouth. Patient also has history of chronic kidney disease stage III, hypothyroidism, migraine headaches, chronic pain syndrome, history of CVA, and history of PICC line infection and sepsis. Patient came into the emergency department on 09/01/2021 for evaluation of a fall, and pain in left hip, bilateral shoulders, and patient apparently bumped her head in the fall as well. She had a recent adjustment of her methadone dose which was increased to 20 mg in the morning and 10 mg at night and the dose increased made her fatigued and lightheaded. She reports coughing up some green colored phlegm, no hemoptysis, no chest discomfort. Her chest x-ray showing bilateral airspace consolidation which had increased since her last chest x-ray from 08/08/2021. X-ray of the left hip showed left hip prosthesis, no fracture or dislocation. X-ray of the pelvis showed no acute abnormality of the pelvis, no fracture. CT of the brain and cervical spine was completed showing no acute intracranial abnormality, and mild degenerative hypertrophic changes in the c ervical spine, no fracture. There were nodular infiltrates at the lung apices there were also seen on CT from 01/28/2021. Room air pulse ox in the 100%, afebrile, hemodynamics stable. Admission labs have been reviewed showing white blood cell count of 16.9, hemoglobin 12.2, sodium of 141, potassium is 4.2, CO2 was 18, BUN was 38, creatinine is 1.7, CRP was elevated at 15.5, lipase was normal at 75, troponin was less than 0.012, alkaline phosphatase was 321, ALT was 36, and AST was 27, urinalysis showed mildly increased white blood cells at 13, 1+ ketones, small amount of leukocyte esterase, she tested negative for COVID 19, influenza A and B. On 09/03/2021 patient seen in follow-up on medical surgical floor, she is breathing comfortably, only occasional cough, no chest discomfort. No hemoptysis, no phlegm production. No wheezing, lung sounds are clear, diminished at the bases, no rhonchi or crackles noted. Room air pulse ox is 98%, afebrile. Today's labs have been reviewed, white blood cell count is 13.5, hemoglobin is 10.2, sodium is 137, potassium 3.3, CO2 is 19, BUN is 31, and creatinine is 1.26, renal function is improving. Pro-calcitonin level was 0.28. Patient remains on azithromycin and Rocephin for possibility of aspiration related pneumonia. She is tolerating soft diet in the form of pudding, she continues on TPN which is running at 30 ML per hour, and IV hydration with 20#. A 50 ML per hour The patient is seen today 09/04/2021 in follow-up on the regular medical floor. She is currently sitting up in bed. Awake and alert in no acute distress. Maintaining good O2 saturations up to 99% on room air. She's been afebrile. Hemodynamically stable. She continues with a loose nonproductive cough. She was having complaints of epigastric pain. Ultrasound revealed no acute abdominal abnormalities and blood cultures revealed no growth. Urine culture revealed no growth. White count 11.1. Hemoglobin 9.0. Sodium 137. Potassium 4.3. BUN 27. Creatinine 1.2. Glucose 116. AST 15. ALT 22. Alk phos 202. Albumin 3.0. She remains on TPN at 50 MLS per hour. Normal saline at 100 ML's per hour. She remains on antibiotics in the form of Zosyn. The patient is seen today 09/05/2021 in follow-up on the regular medical floor. She is awake and alert in no acute distress. She continues with a loose cough. She had been seen and evaluated by ID services who is recommending a possible jejunostomy tube placement to avoid continued aspiration pneumonias. She is continued on TPN for now. Blood cultures had revealed no growth. Urine culture revealed no growth. White count 11.3. Hemoglobin 8.4. Sodium 137. Potassium 5.1. BUN 33. Creatinine 1.2. Glucose 115. Albumin 3.0. She remains on antibiotics in the form of Zosyn. Continued on bronchodilators. Lovenox for DVT prophylaxis. The patient is seen today 09/07/2001 in follow-up on the regular medical floor. She is currently resting comfortably in bed. Awake and alert in no acute distress. Continues to maintain good O2 saturations in the 90s on room air. Blood cultures revealed no growth. Urine culture reveals no growth. White count 10.5. Hemoglobin 8.1. Sodium 138. Potassium 5.7. BUN 36. Creatinine 1.3. Glucose 126. AST 25. ALT 34. She remains on antibiotics in the form of Zosyn. Continued on TPN at 50 MLS per hour. Remains in aspiration precautions. No plans for jejunostomy tube placement here at this facility per surgical services. Her gastrectomy had been performed at the [facility]. The patient is seen today 09/08/2021 in follow-up on the regular medical floor. Awake and alert in no acute distress. Sitting up at the bedside. He was short of breath. Less cough and congestion. Afebrile. Maintaining good O2 saturations in the 90s on room air. Sodium 138. Potassium 4.9. BUN 42. Creatinine 1.3. Glucose 118. She is continued on Zosyn. TPN for nutritional support. Symbicort and DuoNeb inhalations. Objective - Vital Signs Vital signs: Vital Signs Temp 97.7 F 09/08/21 07:44 Pulse 90 09/08/21 11:15 Resp 17 09/08/21 07:44 BP 122/71 09/08/21 07:44 Pulse Ox 98 09/08/21 07:44 Intake & Output 09/07/21 09/08/21 09/08/21 18:59 06:59 18:59 Other: Voiding Method Toilet Bedside Commode # Voids 3 2 - Exam GENERAL EXAM: Alert, very pleasant 76-year-old female patient, cachectic, on room air, comfortable in no distress. HEAD: Normocephalic/atraumatic. EYES: Normal reaction of pupils, equal size. Conjunctiva pink, sclera white. NOSE: Clear with pink turbinates. THROAT: No erythema or exudates. NECK: No masses, no JVD, no thyroid enlargement, no adenopathy. CHEST: No chest wall deformity. Symmetrical expansion. LUNGS: Equal air entry with few scattered rhonchi. CVS: Regular rate and rhythm, normal S1 and S2, no gallops, no murmurs, no rubs ABDOMEN: Soft, nontender. No hepatosplenomegaly, normal bowel sounds, no guarding or rigidity. EXTREMITIES: No clubbing, no edema, no cyanosis, 2+ pulses and upper and lower extremities. MUSCULOSKELETAL: Muscle strength and tone normal. SPINE: No scoliosis or deformity SKIN: No rashes CENTRAL NERVOUS SYSTEM: No focal deficits, tone is normal in all 4 extremities. PSYCHIATRIC: Alert and oriented -3. Appropriate affect. Intact judgment and insight. - Labs CBC & Chem 7: 09/07/21 04:22 09/08/21 04:49 Labs: Abnormal Lab Results - Last 24 Hours (Table) 09/07/21 09/08/21 09/08/21 Range/Units 16:47 04:49 05:09 BUN 41.9 H (9.0-27.0) mg/dL Est GFR (CKD-EPI)AfAm 46.8 L (60.0-200.0) Est GFR (CKD-EPI)NonAf 40.4 L (60.0-200.0) BUN/Creatinine Ratio 32.23 H (12.00-20.00) Ratio Glucose 118 H (70-110) mg/dL POC Glucose (mg/dL) 114 H 113 H (75-99) mg/dL 09/08/21 Range/Units 11:53 BUN (9.0-27.0) mg/dL Est GFR (CKD-EPI)AfAm (60.0-200.0) Est GFR (CKD-EPI)NonAf (60.0-200.0) BUN/Creatinine Ratio (12.00-20.00) Ratio Glucose (70-110) mg/dL POC Glucose (mg/dL) 133 H (75-99) mg/dL Microbiology - Last 24 Hours (Table) 09/01/21 18:56 Blood Culture - Final Blood No Growth after 144 hours 09/01/21 18:41 Blood Culture - Final Blood No Growth after 144 hours Assessment and Plan Assessment: 1 Dyspnea, cough related to recurrent aspiration, with suspected recurrent aspi ration related pneumonia 2 Fall at home, following methadone dose increase, CT of the brain, cervical spine, left hip and pelvis showed no acute findings, no acute fracture or dislocation 3 Acute kidney injury, related to ATN, improving 4 Chronic kidney disease stage III at baseline 5 Malnutrition and failure to thrive 6 Recurrent aspiration with multiple hospitalizations, patient is currently on TPN for nutritional support in addition to some oral feedings on soft diet 7 History of gastrectomy 8 Recent hospitalization for urinary tract infection, related to enterococcus faecalis 9 Chronic pain syndrome 10 Previous history of CVA 11 History of hypothyroidism 12 History of spinal stenosis and chronic back pain 13 History of chronic anemia of chronic disease 14 Anxiety/depression Plan: The patient was seen and evaluated Labs and medications reviewed Currently on Zosyn Remains on aspiration precautions Remains on TPN for now May require jejunostomy tube placement Home once cleared by medicine Surgical services recommending follow-up at the [facility] regarding possible jejunostomy tube placement I have personally seen and examined the patient, performed the documentation and the assessment and plan as written. Number of minutes spent on the visit: 10.
--- NOTE | 2021-09-08 14:32 | P.PN ---
Subjective Progress Note Date: 09/08/21 Louise Sutton, is a 76-year-old female who presented to [facility] emergency room with a chief complaint of fatigue and cough of yellow greenish phlegm. She was evaluated in the emergency room vital examination on presentation revealed a temperature of 97.8 pulse 113 respiration 18 and blood pressure 119/69 pulse ox 98% on room air Laboratory data revealed a white blood count of 16.9 hemoglobin 12.2 platelet count 564 BUN 38 creatinine 1.77 Testing in the emergency room revealed chest x-ray done in the emergency room revealed bilateral infiltrate suggestive of pneumonia Patient was admitted to medical floor for further evaluation and treatment Past medical history is significant for history of gastrectomy, history of failure to thrive maintained on TPN, history of recurrent reflux with recurrent aspiration pneumonia, history of chronic kidney disease previous history of stroke history of hypothyroidism history of spinal stenosis with chronic back pain. On 09/03/2021 was seen and examined on the medical floor she is alert and oriented 3 in no apparent distress she is still complaining of occasional cough and shortness of breath with activity, today she is also complaining of pain and burning sensation in the epigastric area, otherwise she denies any complaints there is no fever or chills no headache or dizziness no chest pain no nausea or vomiting no diarrhea and no urinary symptoms On 09/04/2021 patient is alert and oriented 3. Patient remains on room air. [facility] services are following. Patient remains on TPN. Patient remains on IV antibiotics Zosyn. Patient reports some shortness of breath. Patient denies nausea vomiting or diarrhea. Patient denies any urinary burning or frequency. On 09/05/2021 patient is alert and oriented 3 in no apparent distress she is still complaining of cough and shortness of breath with activity otherwise she denies any complaints there is no fever or chills no headache or dizziness no chest pain no abdominal pain no nausea or vomiting no diarrhea no blood in the stools no burning with urination no frequency or urgency no hematuria 09/06/2021 patient is alert and oriented 3. Patient complaining of chronic pain. She was evaluated by surgical services for possible J-tube placement. Patient remains on IV Zosyn per infectious disease. Patient denies chest pain. Patient denies nausea vomiting or diarrhea. Patient denies any urinary burning or frequency. Patient remains on TPN On 09/07/2021 patient was seen and examined on the medical floor she is alert and oriented 3 in no apparent distress, she is complaining of occasional cough , also she is complaining of pain especially at night and is requesting to increase in her afternoon dose of methadone, otherwise she denies any complaints there is no fever or chills no headache or dizziness no chest pain no shortness of breath no cough no nausea or vomiting no abdominal pain no diarrhea and no urinary symptoms. Vital exam reveals a temperature of 98.3 pulse 88 respiration 16 blood pressure 138/74 pulse ox 98% on room air, laboratory data reveals a white blood count of 10.5 hemoglobin 8.1 platelet count 411 sodium 138 potassium 5.7 chloride 108 CO2 22 BUN 36 creatinine 1.3 On 09/08/2021 patient was seen and examined on the medical floor she is alert and oriented 3 in no apparent distress, she is still complaining of generalized pain otherwise she denies any complaints there is no fever or chills no headache or dizziness no chest pain no shortness of breath no cough no nausea or vomiting no abdominal pain no diarrhea and no urinary symptoms, patient requesting an increase in methadone to 20 mg twice a day and discontinuing IV dilaudid, orders were initiated, patient remains on IV antibiotics, infectious disease following, also awaiting surgical recommendation regarding J-tube placement. Objective - Vital Signs Vital signs: Vital Signs Temp 97.7 F 09/08/21 07:44 Pulse 90 09/08/21 11:15 Resp 17 09/08/21 07:44 BP 122/71 09/08/21 07:44 Pulse Ox 98 09/08/21 07:44 Intake & Output 09/07/21 09/08/21 09/08/21 18:59 06:59 18:59 Other: Voiding Method Toilet Bedside Commode # Voids 3 2 - Exam In general patient is alert and oriented x 3 in no distress HEENT head normocephalic and atraumatic Neck is supple no JVD no goiter no lymphadenopathy no carotid bruit Chest examination reveals a scattered crackles bilaterally Cardiac exam reveals regular heart sounds S1 and S2 no gallops no murmurs Abdomen is soft nontender no organomegaly with normal bowel sounds Extremity exam reveals no edema no cyanosis or clubbing Neurological examination reveals no gross focal deficits - Labs CBC & Chem 7: 09/07/21 04:22 09/08/21 04:49 Labs: Abnormal Lab Results - Last 24 Hours (Table) 09/07/21 09/08/21 09/08/21 Range/Units 16:47 04:49 05:09 BUN 41.9 H (9.0-27.0) mg/dL Est GFR (CKD-EPI)AfAm 46.8 L (60.0-200.0) Est GFR (CKD-EPI)NonAf 40.4 L (60.0-200.0) BUN/Creatinine Ratio 32.23 H (12.00-20.00) Ratio Glucose 118 H (70-110) mg/dL POC Glucose (mg/dL) 114 H 113 H (75-99) mg/dL 09/08/21 Range/Units 11:53 BUN (9.0-27.0) mg/dL Est GFR (CKD-EPI)AfAm (60.0-200.0) Est GFR (CKD-EPI)NonAf (60.0-200.0) BUN/Creatinine Ratio (12.00-20.00) Ratio Glucose (70-110) mg/dL POC Glucose (mg/dL) 133 H (75-99) mg/dL Microbiology - Last 24 Hours (Table) 09/01/21 18:56 Blood Culture - Final Blood No Growth after 144 hours 09/01/21 18:41 Blood Culture - Final Blood No Growth after 144 hours Assessment and Plan Plan: Pneumonia, possibly related to aspiration Acute kidney injury Failure to thrive patient is maintained on TPN, she has a known history of gastrectomy in the past Recent fall at home, no evidence of injury on CT scan of the brain and cervical spine and left hip x-ray done in the emergency room Underlying history of hypothyroidism Underlying history of spinal stenosis with chronic back pain Underlying history of chronic kidney disease Known history of CVA in the past Underlying history of depression and anxiety disorder Pain and burning sensation in the epigastric area. Amylase and lipase within normal limits. Abdomen ultrasound completed showing no acute abnormality At this time patient is admitted to medical floor Home medications reviewed and reordered She was started on IV hydration and IV antibiotics Continue was TPN Pulmonary consultation requested Surgical service is consulted for pulmonary for possible J-tube placement For DVT prophylaxis we will use Lovenox Will follow closely
--- NOTE | 2021-09-08 15:20 | P.PN ---
Subjective Progress Note Date: 09/08/21 CHIEF COMPLAINT: Aspiration pneumonia HISTORY OF PRESENT ILLNESS: The patient is a 76-year-old female with complex surgical history where her surgeries are performed at [facility] who presents with chronic aspiration pneumonia. She reports last visit at [facility] being one year ago. She is tolerating diet. Recorded intake is 100% of her a lot of meals. ROS: No fevers or chills. No new chest pain. Underweight, BMI 17.7 PHYSICAL EXAM: VITAL SIGNS: Reviewed CONSTITUTIONAL: Well developed and in no acute distress. EYES: Conjuctivae without sclera icterus. Extraocular movements grossly intact. HEAD, EARS, NOSE, THROAT: Moist buccal mucosa. Head is atraumatic, n ormocephalic. Hears conversational speech. No nasal drainage. RESPIRATORY: Non-labored respirations and equal bilateral excursions. CARDIOVASCULAR: Palpable 2+ radial pulses. ABDOMEN: Scaphoid. No peritonitis. MUSCULOSKELETAL: No gross deformity of the lower extremities noted. No clubbing. No cyanosis. SKIN: Good skin turgor. Well perfused. NEUROLOGIC: Cranial nerves II through XII grossly intact. No focal or lateralizing signs. PSYCH: Appropriate affect. Alert and oriented to person, place and time. CLINICAL LABS: Reviewed. WBC elevated over 10.0, leukocytosis ASSESSMENT: 1. Recurrent aspiration pneumonia 2. Leukocytosis 3. Underweight, BMI 17.7. PLAN: 1. Diet as tolerated. 2. Recommend follow-up [facility] due to multiple abdominal surgeries and TPN management Objective - Vital Signs Vital signs: Vital Signs Temp 98.2 F 09/08/21 14:00 Pulse 104 H 09/08/21 14:00 Resp 17 09/08/21 14:00 BP 117/66 09/08/21 14:00 Pulse Ox 97 09/08/21 14:00 Intake & Output 09/07/21 09/08/21 09/08/21 18:59 06:59 18:59 Other: Voiding Method Toilet Bedside Commode # Voids 3 2 - Labs CBC & Chem 7: 09/07/21 04:22 09/08/21 04:49 Labs: Abnormal Lab Results - Last 24 Hours (Table) 09/07/21 09/08/21 09/08/21 Range/Units 16:47 04:49 05:09 BUN 41.9 H (9.0-27.0) mg/dL Est GFR (CKD-EPI)AfAm 46.8 L (60.0-200.0) Est GFR (CKD-EPI)NonAf 40.4 L (60.0-200.0) BUN/Creatinine Ratio 32.23 H (12.00-20.00) Ratio Glucose 118 H (70-110) mg/dL POC Glucose (mg/dL) 114 H 113 H (75-99) mg/dL 09/08/21 Range/Units 11:53 BUN (9.0-27.0) mg/dL Est GFR (CKD-EPI)AfAm (60.0-200.0) Est GFR (CKD-EPI)NonAf (60.0-200.0) BUN/Creatinine Ratio (12.00-20.00) Ratio Glucose (70-110) mg/dL POC Glucose (mg/dL) 133 H (75-99) mg/dL Microbiology - Last 24 Hours (Table) 09/01/21 18:56 Blood Culture - Final Blood No Growth after 144 hours 09/01/21 18:41 Blood Culture - Final Blood No Growth after 144 hours
[2021-09-08 17:05] LABS: Glucose,Whole Blood 132 mg/dL (75-99)
--- NOTE | 2021-09-08 17:12 | P.PN ---
Subjective Progress Note Date: 09/07/21 Principal diagnosis: Recurrent aspiration pneumonia Patient is a 76-year-old female with a past medical history significant for gastrectomy, history of recurrent aspiration pneumonia and Central line Infection which the patient uses for TPN, presented to hospital with weakness and fall and has been diagnosed with aspiration pneumonia. On today's evaluation that is 09/07/2021, patient continues to be afebrile, the patient is breathing comfortably on room air , the patient denies any chest pain still have some cough but not bringing up any sputum, the patient is complaining of some abdominal pain but no vomiting or diarrhea Objective - Vital Signs Vital signs: Vital Signs Temp 98.8 F 09/07/21 19:12 Pulse 99 09/07/21 19:12 Resp 17 09/07/21 19:12 BP 122/59 09/07/21 19:12 Pulse Ox 98 09/07/21 19:12 Intake & Output 09/07/21 09/07/21 09/08/21 06:59 18:59 06:59 Other: Voiding Method Toilet Bedside Commode # Voids 4 3 - Exam GENERAL DESCRIPTION: An elderly female lying in bed in no distress RESPIRATORY SYSTEM: Unlabored breathing , decreased breath sounds at bases HEART: S1 S2 regular rate and rhythm , ABDOMEN: Soft , no tenderness EXTREMITIES: No edema feet - Labs CBC & Chem 7: 09/07/21 04:22 09/08/21 04:49 Labs: Abnormal Lab Results - Last 24 Hours (Table) 09/06/21 09/07/21 09/07/21 Range/Units 23:29 04:22 04:22 WBC 10.59 H (4.50-10.00) X 10*3/uL RBC 3.01 L (4.10-5.20) X 10*6/uL Hgb 8.1 L (12.0-15.0) g/dL Hct 26.8 L (37.2-46.3) % MCH 26.9 L (27.0-32.0) pg MCHC 30.2 L (32.0-37.0) g/dL RDW 16.7 H (11.5-14.5) % MPV 9.0 L (9.5-12.2) fL Immature Gran # 0.09 H (0.00-0.04) X 10*3/uL Eosinophils # 0.52 H (0.04-0.35) X 10*3/uL Potassium 5.7 H (3.5-5.5) mmol/L Anion Gap 8.30 L (10.00-18.00) mmol/L BUN 36.4 H (9.0-27.0) mg/dL Est GFR (CKD-EPI)AfAm 49.1 L (60.0-200.0) Est GFR (CKD-EPI)NonAf 42.3 L (60.0-200.0) BUN/Creatinine Ratio 29.12 H (12.00-20.00) Ratio Glucose 126 H (70-110) mg/dL POC Glucose (mg/dL) 100 H (75-99) mg/dL Total Bilirubin <0.15 L (0.30-1.20) mg/dL Alkaline Phosphatase 179 H (41-126) U/L Total Protein 5.3 L (6.2-8.2) g/dL Albumin 3.2 L (3.8-4.9) g/dL Albumin/Globulin Ratio 1.47 L (1.60-3.17) g/dL 09/07/21 09/07/21 09/07/21 Range/Units 05:22 11:43 16:47 WBC (4.50-10.00) X 10*3/uL RBC (4.10-5.20) X 10*6/uL Hgb (12.0-15.0) g/dL Hct (37.2-46.3) % MCH (27.0-32.0) pg MCHC (32.0-37.0) g/dL RDW (11.5-14.5) % MPV (9.5-12.2) fL Immature Gran # (0.00-0.04) X 10*3/uL Eosinophils # (0.04-0.35) X 10*3/uL Potassium (3.5-5.5) mmol/L Anion Gap (10.00-18.00) mmol/L BUN (9.0-27.0) mg/dL Est GFR (CKD-EPI)AfAm (60.0-200.0) Est GFR (CKD-EPI)NonAf (60.0-200.0) BUN/Creatinine Ratio (12.00-20.00) Ratio Glucose (70-110) mg/dL POC Glucose (mg/dL) 133 H 105 H 114 H (75-99) mg/dL Total Bilirubin (0.30-1.20) mg/dL Alkaline Phosphatase (41-126) U/L Total Protein (6.2-8.2) g/dL Albumin (3.8-4.9) g/dL Albumin/Globulin Ratio (1.60-3.17) g/dL Microbiology - Last 24 Hours (Table) 09/01/21 18:56 Blood Culture - Preliminary Blood No Growth after 120 hours 09/01/21 18:41 Blood Culture - Preliminary Blood No Growth after 120 hours Assessment and Plan (1) Aspiration pneumonia Current Visit: No Status: Acute Code(s): J69.0 - PNEUMONITIS DUE TO INHALATION OF FOOD AND VOMIT SNOMED Code(s): 159624514 Plan: 1patient presented to hospital with weakness multiple falls in this patient who did have history of gastrectomy and is maintained on TPN in the outpatient sett ing concerning for recurrent aspiration pneumonia in this patient currently responding to the Zosyn. 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 3patient benefit from possible jejunostomy tube for feeding that will hopefully prevent recurrent aspiration pneumonia and also line related sepsis secondary to the PICC line and TPN need, for which general surgery has been consulted 4- patient seemed to have shown clinical improvement and the patient white count has normalized, plan to continue with Zosyn and monitor clinical response closely. Time with Patient: Less than 30
--- NOTE | 2021-09-08 17:13 | P.PN ---
Subjective Progress Note Date: 09/08/21 Principal diagnosis: Recurrent aspiration pneumonia Patient is a 76-year-old female with a past medical history significant for gastrectomy, history of recurrent aspiration pneumonia and Central line Infection which the patient uses for TPN, presented to hospital with weakness and fall and has been diagnosed with aspiration pneumonia. On today's evaluation that is 09/08/2021, patient denies any fever or any chills, the patient is breathing comfortably on room air , the patient denies any chest pain, the patient continued complaining of a cough but not able to bring up any sputum no nausea no pain no abdominal pain or diarrhea Objective - Vital Signs Vital signs: Vital Signs Temp 98.2 F 09/08/21 14:00 Pulse 104 H 09/08/21 14:00 Resp 17 09/08/21 14:00 BP 117/66 09/08/21 14:00 Pulse Ox 97 09/08/21 14:00 Intake & Output 09/07/21 09/08/21 09/08/21 18:59 06:59 18:59 Other: Voiding Method Toilet Bedside Commode # Voids 3 2 - Exam GENERAL DESCRIPTION: An elderly female lying in bed in no distress RESPIRATORY SYSTEM: Unlabored breathing , decreased breath sounds at bases HEART: S1 S2 regular rate and rhythm , ABDOMEN: Soft , no tenderness EXTREMITIES: No edema feet - Labs CBC & Chem 7: 09/07/21 04:22 09/08/21 04:49 Labs: Abnormal Lab Results - Last 24 Hours (Table) 09/07/21 09/08/21 09/08/21 Range/Units 16:47 04:49 05:09 BUN 41.9 H (9.0-27.0) mg/dL Est GFR (CKD-EPI)AfAm 46.8 L (60.0-200.0) Est GFR (CKD-EPI)NonAf 40.4 L (60.0-200.0) BUN/Creatinine Ratio 32.23 H (12.00-20.00) Ratio Glucose 118 H (70-110) mg/dL POC Glucose (mg/dL) 114 H 113 H (75-99) mg/dL 09/08/21 Range/Units 11:53 BUN (9.0-27.0) mg/dL Est GFR (CKD-EPI)AfAm (60.0-200.0) Est GFR (CKD-EPI)NonAf (60.0-200.0) BUN/Creatinine Ratio (12.00-20.00) Ratio Glucose (70-110) mg/dL POC Glucose (mg/dL) 133 H (75-99) mg/dL Microbiology - Last 24 Hours (Table) 09/01/21 18:56 Blood Culture - Final Blood No Growth after 144 hours 09/01/21 18:41 Blood Culture - Final Blood No Growth after 144 hours Assessment and Plan (1) Aspiration pneumonia Current Visit: No Status: Acute Code(s): J69.0 - PNEUMONITIS DUE TO INHALATI ON OF FOOD AND VOMIT SNOMED Code(s): 227095323 Plan: 1patient presented to hospital with weakness multiple falls in this patient who did have history of gastrectomy and is maintained on TPN in the outpatient setting concerning for recurrent aspiration pneumonia in this patient currently responding to the Zosyn. 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 3patient benefit from possible jejunostomy tube for feeding that will hopefully prevent recurrent aspiration pneumonia and also line related sepsis secondary to the PICC line and TPN need, for which general surgery has been consulted 4- patient is slowly clinically improving and the patient white count has normalized, plan to continue with Zosyn to finish a two-week course of therapy Time with Patient: Less than 30
[2021-09-08] MEDS: MIRTAZAPINE 45 MG TABLET PO SCH (22:54)
[2021-09-08 23:01] LABS: Glucose,Whole Blood 101 mg/dL (75-99)
[2021-09-09] MEDS: BUTALB/APAP/CAFF 50-325-40MG TAB PO SCH ×4 (01:23→19:03)
[2021-09-09] MEDS ORDERED: METOPROLOL TARTRATE 12.5 MG TAB PO STA (02:55)
[2021-09-09] MEDS: PIPERACILLIN-TAZOBACTAM 3.375 GM in SODIUM CHLORIDE 0.9% 100 ML IVPB SCH ×3 (03:00→19:05)
[2021-09-09] MEDS ORDERED: METOPROLOL TARTRATE 12.5 MG TAB ONE (03:01)
[2021-09-09] MEDS: LEVOTHYROXINE 100 MCG TAB PO SCH (06:06)
[2021-09-09] MEDS: INSULIN ASPART (NovoLOG) 100 UNIT/ML VIAL SQ SCH ×3 (06:08→19:01)
[2021-09-09 06:10] LABS: Glucose,Whole Blood 99 mg/dL (75-99)
[2021-09-09 06:59] LABS: ALT 32 U/L (4-34); AST 32 U/L (14-36); African American GFR (CKD) 45 (>60 ml/min/1.73 sqM); Albumin 3.3 g/dL (3.5-5.0); Albumin/Globulin Ratio 1.3; Alkaline Phosphatase 160 U/L (38-126); Anion Gap 10 mmol/L; Blood Urea Nitrogen 46 mg/dL (7-17); Carbon Dioxide 23 mmol/L (22-30); Chloride 104 mmol/L (98-107); Globulin 2.6 g/dL; Glucose 138 mg/dL (74-99); Magnesium 2.1 mg/dL (1.6-2.3); Non-African American GFR(CKD) 39 (>60 ml/min/1.73 sqM); Phosphorus 3.8 mg/dL (2.5-4.5); Potassium 4.9 mmol/L (3.5-5.1); Sodium 137 mmol/L (137-145); Total Bilirubin 0.2 mg/dL (0.2-1.3); Total Protein 5.9 g/dL (6.3-8.2)
[2021-09-09] MEDS: METHADONE 10 MG TAB PO SCH ×2 (07:32→20:22)
[2021-09-09] MEDS: busPIRone HCl 10 MG TAB PO SCH ×2 (07:32→20:22)
[2021-09-09] MEDS: buPROPion XL 150 MG TAB.ER.24H PO SCH (07:32)
[2021-09-09] MEDS: PANTOPRAZOLE 40 MG TABLET PO SCH (07:32)
[2021-09-09] MEDS: ASPIRIN 81 MG PO SCH (07:33)
[2021-09-09] MEDS: ENOXAPARIN 30 MG/0.3 ML SYRINGE SQ SCH (07:33)
[2021-09-09] MEDS: SODIUM BICARBONATE TAB 650 MG TAB PO SCH (07:33)
[2021-09-09] MEDS: hydrOXYzine pamoate 25 MG CAP PO SCH ×3 (07:33→20:22)
[2021-09-09] MEDS: SYMBICORT 160-4.5 MCG INHALER INHALATION SCH ×2 (08:21→19:32)
[2021-09-09] MEDS: IPRATROPIUM-ALBUTEROL 3 ML NEB INHALATION PRN ×3 (08:21→15:01)
[2021-09-09 08:52] LABS: Basophils # (A) 0.06 X 10*3/uL (0.00-0.10); Basophils % (A) 0.6 %; Eosinophils # (A) 0.49 X 10*3/uL (0.04-0.35); Eosinophils % (A) 4.7 %; HCT 27.7 % (37.2-46.3); HGB 8.3 g/dL (12.0-15.0); Immature Grans, Automated 0.8 %; Lymphocytes # (A) 1.58 X 10*3/uL (0.90-5.00); Lymphocytes % (A) 15.3 %; MCH 26.7 pg (27.0-32.0); MCV 89.1 fL (80.0-97.0); Mean Platelet Volume 9.6 fL (9.5-12.2); Monocytes # (A) 1.16 X 10*3/uL (0.20-1.00); Monocytes % (A) 11.2 %; NRBC Per 100 WBC 0 /100 WBCS (0.0-0.0); Neutrophils # (A) 6.96 X 10*3/uL (1.80-7.70); Neutrophils % (A) 67.4 %; Platelet Count 399 X 10*3/uL (140-440); RBC 3.11 X 10*6/uL (4.10-5.20); RDW 16.9 % (11.5-14.5); WBC 10.33 X 10*3/uL (4.50-10.00)
[2021-09-09 11:34] LABS: Glucose,Whole Blood 119 mg/dL (75-99)
[2021-09-09] MEDS: FERROUS SULFATE 325 MG TAB PO SCH (11:47)
[2021-09-09] MEDS: SODIUM CHLORIDE 0.9% 1,000 ML IV SCH ×2 (11:47→22:06)
--- NOTE | 2021-09-09 12:30 | P.PN ---
Subjective Progress Note Date: 09/09/21 CHIEF COMPLAINT: Recurrent aspiration pneumonia HISTORY OF PRESENT ILLNESS: Surgical service consulted for possible J-tube placement. Patient has known recurrent aspiration likely secondary to esophageal dysmotility. Patient has history of previous total gastrectomy with esophagojejunostomy. Patient currently on a soft diet. She's still has cough. Denies any abdominal pain. Denies any nausea or vomiting. She is on TPN for nutrition support. Afebrile. WBC 10.33 PHYSICAL EXAM: VITAL SIGNS: Reviewed. GENERAL: Well-developed in no acute distress. HEENT: No sclera icterus. Extraocular movements grossly intact. Moist buccal mucosa. Head is atraumatic, normocephalic. ABDOMEN: Soft. Nondistended. Nontender. NEUROLOGIC: Alert and oriented. Cranial nerves II through XII grossly intact. ASSESSMENT: 1. Recurrent aspiration pneumonia 2. Moderate protein calorie malnutrition 3. Esophageal dysmotility disorder PLAN: -No surgical intervention planned. -Defer management of J-tube placement to [facility] where patient has had previous surgeries and due to the complexity of her case. Physician Social Media Editor note has been reviewed by physician. Signing provider agrees with the documented findings, assessment, and plan of care. I have personally seen and examined the patient, reviewed the PROOFING MACHINE OPERATOR /PAs history, exam and MDM and agree with the assessment and plan as written. Based on total visit time, I have performed more than 50% of the visit. As above: Patient feels better at this time. Spoke with Dr. Desir. We'll plan outpatient follow-up with surgical services at [facility] to evaluate for this enteral feeding tube placement Objective - Vital Signs Vital signs: Vital Signs Temp 98.1 F 09/09/21 07:20 Pulse 88 09/09/21 11:45 Resp 16 09/09/21 07:20 BP 122/67 09/09/21 07:20 Pulse Ox 96 09/09/21 07:20 FiO2 Intake & Output 09/08/21 09/09/21 09/09/21 18:59 06:59 18:59 Intake Total 296 Balance 296 Intake: Oral 296 Other: Voiding Method Toilet Bedside Commode # Voids 5 2 - Labs CBC & Chem 7: 09/09/21 05:33 09/09/21 05:33 Labs: Abnormal Lab Results - Last 24 Hours (Table) 09/08/21 09/08/21 09/09/21 Range/Units 17:00 22:58 05:33 WBC (4.50-10.00) X 10*3/uL RBC (4.10-5.20) X 10*6/uL Hgb (12.0-15.0) g/dL Hct (37.2-46.3) % MCH (27.0-32.0) pg MCHC (32.0-37.0) g/dL RDW (11.5-14.5) % Immature Gran # (0.00-0.04) X 10*3/uL Monocytes # (0.20-1.00) X 10*3/uL Eosinophils # (0.04-0.35) X 10*3/uL BUN 46 H (7-17) mg/dL Creatinine 1.33 H (0.52-1.04) mg/dL Glucose 138 H (74-99) mg/dL POC Glucose (mg/dL) 132 H 101 H (75-99) mg/dL Alkaline Phosphatase 160 H (38-126) U/L Total Protein 5.9 L (6.3-8.2) g/dL Albumin 3.3 L (3.5-5.0) g/dL 09/09/21 09/09/21 Range/Units 05:33 11:33 WBC 10.33 H (4.50-10.00) X 10*3/uL RBC 3.11 L (4.10-5.20) X 10*6/uL Hgb 8.3 L (12.0-15.0) g/dL Hct 27.7 L (37.2-46.3) % MCH 26.7 L (27.0-32.0) pg MCHC 30.0 L (32.0-37.0) g/dL RDW 16.9 H (11.5-14.5) % Immature Gran # 0.08 H (0.00-0.04) X 10*3/uL Monocytes # 1.16 H (0.20-1.00) X 10*3/uL Eosinophils # 0.49 H (0.04-0.35) X 10*3/uL BUN (7-17) mg/dL Creatinine (0.52-1.04) mg/dL Glucose (74-99) mg/dL POC Glucose (mg/dL) 119 H (75-99) mg/dL Alkaline Phosphatase (38-126) U/L Total Protein (6.3-8.2) g/dL Albumin (3.5-5.0) g/dL
--- NOTE | 2021-09-09 13:23 | P.PN ---
Subjective Progress Note Date: 09/09/21 This is a 76-year-old white female patient who is well-known to our service from multiple hospitalizations for recurrent aspiration pneumonia. Patient had a history of previous gastrectomy, chronic dysphagia, recurrent aspiration pneumonia, chronic malnutrition and failure to thrive, patient is maintained on TPN in addition to a soft diet by mouth. Patient also has history of chronic kidney disease stage III, hypothyroidism, migraine headaches, chronic pain syndrome, history of CVA, and history of PICC line infection and sepsis. Patient came into the emergency department on 09/01/2021 for evaluation of a fall, and pain in left hip, bilateral shoulders, and patient apparently bumped her head in the fall as well. She had a recent adjustment of her methadone dose which was increased to 20 mg in the morning and 10 mg at night and the dose increased made her fatigued and lightheaded. She reports coughing up some green colored phlegm, no hemoptysis, no chest discomfort. Her chest x-ray showing bilateral airspace consolidation which had increased since her last chest x-ray from 08/08/2021. X-ray of the left hip showed left hip prosthesis, no fracture or dislocation. X-ray of the pelvis showed no acute abnormality of the pelvis, no fracture. CT of the brain and cervical spine was completed showing no acute intracranial abnormality, and mild degenerative hypertrophic changes in the cervical spine, no fracture. There were nodular infiltrates at the lung apices there were also seen on CT from 01/28/2021. Room air pulse ox in the 100%, afebrile, hemodynamics stable. Admission labs have been reviewed showing white blood cell count of 16.9, hemoglobin 12.2, sodium of 141, potassium is 4.2, CO2 was 18, BUN was 38, creatinine is 1.7, CRP was elevated at 15.5, lipase was normal at 75, troponin was less than 0.012, alkaline phosphatase was 321, ALT was 36, and AST was 27, urinalysis showed mildly increased white blood cells at 13, 1+ ketones, small amount of leukocyte esterase, she tested negative for COVID 19, influenza A and B. On 09/03/2021 patient seen in follow-up on medical surgical floor, she is breathing comfortably, only occasional cough, no chest discomfort. No hemoptysis, no phlegm production. No wheezing, lung sounds are clear, diminished at the bases, no rhonchi or crackles noted. Room air pulse ox is 98%, afebrile. Today's labs have been reviewed, white blood cell count is 13.5, hemoglobin is 10.2, sodium is 137, potassium 3.3, CO2 is 19, BUN is 31, and creatinine is 1.26, renal function is improving. Pro-calcitonin level was 0.28. Patient remains on azithromycin and Rocephin for possibility of aspiration related pneumonia. She is tolerating soft diet in the form of pudding, she continues on TPN which is running at 30 ML per hour, and IV hydration with 20#. A 50 ML per hour The patient is seen today 09/04/2021 in follow-up on the regular medical floor. She is currently sitting up in bed. Awake and alert in no acute distress. Maintaining good O2 saturations up to 99% on room air. She's been afebrile. Hemodynamically stable. She continues with a loose nonproductive cough. She was having complaints of epigastric pain. Ultrasound revealed no acute abdominal abnormalities and blood cultures revealed no growth. Urine culture revealed no growth. White count 11.1. Hemoglobin 9.0. Sodium 137. Potassium 4.3. BUN 27. Creatinine 1.2. Glucose 116. AST 15. ALT 22. Alk phos 202. Albumin 3.0. She remains on TPN at 50 MLS per hour. Normal saline at 100 ML's per hour. She remains on antibiotics in the form of Zosyn. The patient is seen today 09/05/2021 in follow-up on the regular medical floor. She is awake and alert in no acute distress. She continues with a loose cough. She had been seen and evaluated by ID services who is recommending a possible jejunostomy tube placement to avoid continued aspiration pneumonias. She is continued on TPN for now. Blood cultures had revealed no growth. Urine culture revealed no growth. White count 11.3. Hemoglobin 8.4. Sodium 137. Potassium 5.1. BUN 33. Creatinine 1.2. Glucose 115. Albumin 3.0. She remains on antibiotics in the form of Zosyn. Continued on bronchodilators. Lovenox for DVT prophylaxis. The patient is seen today 09/07/2001 in follow-up on the regular medical floor. She is currently resting comfortably in bed. Awake and alert in no acute distress. Continues to maintain good O2 saturations in the 90s on room air. Blood cultures revealed no growth. Urine culture reveals no growth. White count 10.5. Hemoglobin 8.1. Sodium 138. Potassium 5.7. BUN 36. Creatinine 1.3. Glucose 126. AST 25. ALT 34. She remains on antibiotics in the form of Zosyn. Continued on TPN at 50 MLS per hour. Remains in aspiration precautions. No plans for jejunostomy tube placement here at this facility per surgical services. Her gastrectomy had been performed at the [facility]. The patient is seen today 09/08/2021 in follow-up on the regular medical floor. Awake and alert in no acute distress. Sitting up at the bedside. He was short of breath. Less cough and congestion. Afebrile. Maintaining good O2 saturations in the 90s on room air. Sodium 138. Potassium 4.9. BUN 42. Creatinine 1.3. Glucose 118. She is continued on Zosyn. TPN for nutritional support. Symbicort and DuoNeb inhalations. 09/09/2021, the patient is doing well. No specific complaints. The patient is on room air oxygen. repeat chest x-ray from yesterday showed improvement in the left lung consolidation and there is some improvement in aeration in the left lung. Some limited cough. No symptoms can sputum production. The patient is a chronic aspirator. She continues to be on TPN for nutritional support. she remains on broad-spectrum antibiotics and she remains on IV Zosyn. no fever. No chills. The plans are to send this patient for reevaluation [facility] for a J tube insertion. Objective - Vital Signs Vital signs: Vital Signs Temp 98.1 F 09/09/21 07:20 Pulse 88 09/09/21 11:45 Resp 16 09/09/21 07:20 BP 122/67 09/09/21 07:20 Pulse Ox 96 09/09/21 07:20 FiO2 Intake & Output 09/08/21 09/09/21 09/09/21 18:59 06:59 18:59 Intake Total 296 Balance 296 Intake: Oral 296 Other: Voiding Method Toilet Bedside Commode # Voids 5 2 - Exam GENERAL EXAM: Alert, very pleasant 76-year-old female patient, cachectic, on room air, comfortable in no distress. HEAD: Normocephalic/atraumatic. EYES: Normal reaction of pupils, equal size. Conjunctiva pink, sclera white. NOSE: Clear with pink turbinates. THROAT: No erythema or exudates. NECK: No masses, no JVD, no thyroid enlargement, no adenopathy. CHEST: No chest wall deformity. Symmetrical expansion. LUNGS: Equal air entry with few scattered rhonchi. CVS: Regular rate and rhythm, normal S1 and S2, no gallops, no murmurs, no rubs ABDOMEN: Soft, nontender. No hepatosplenomegaly, normal bowel sounds, no guarding or rigidity. EXTREMITIES: No clubbing, no edema, no cyanosis, 2+ pulses and upper and lower extremities. MUSCULOSKELETAL: Muscle strength and tone normal. SPINE: No scoliosis or deformity SKIN: No rashes CENTRAL NERVOUS SYSTEM: No focal deficits, tone is normal in all 4 extremities. PSYCHIATRIC: Alert and oriented -3. Appropriate affect. Intact judgment and insight. - Labs CBC & Chem 7: 09/09/21 05:33 09/09/21 05:33 Labs: Abnormal Lab Results - Last 24 Hours (Table) 09/08/21 09/08/21 09/09/21 Range/Units 17:00 22:58 05:33 WBC (4.50-10.00) X 10*3/uL RBC (4.10-5.20) X 10*6/uL Hgb (12.0-15.0) g/dL Hct (37.2-46.3) % MCH (27.0-32.0) pg MCHC (32.0-37.0) g/dL RDW (11.5-14.5) % Immature Gran # (0.00-0.04) X 10*3/uL Monocytes # (0.20-1.00) X 10*3/uL Eosinophils # (0.04-0.35) X 10*3/uL BUN 46 H (7-17) mg/dL Creatinine 1.33 H (0.52-1.04) mg/dL Glucose 138 H (74-99) mg/dL POC Glucose (mg/dL) 132 H 101 H (75-99) mg/dL Alkaline Phosphatase 160 H (38-126) U/L Total Protein 5.9 L (6.3-8.2) g/dL Albumin 3.3 L (3.5-5.0) g/dL 09/09/21 09/09/21 Range/Units 05:33 11:33 WBC 10.33 H (4.50-10.00) X 10*3/uL RBC 3.11 L (4.10-5.20) X 10*6/uL Hgb 8.3 L (12.0-15.0) g/dL Hct 27.7 L (37.2-46.3) % MCH 26.7 L (27.0-32.0) pg MCHC 30.0 L (32.0-37.0) g/dL RDW 16.9 H (11.5-14.5) % Immature Gran # 0.08 H (0.00-0.04) X 10*3/uL Monocytes # 1.16 H (0.20-1.00) X 10*3/uL Eosinophils # 0.49 H (0.04-0.35) X 10*3/uL BUN (7-17) mg/dL Creatinine (0.52-1.04) mg/dL Glucose (74-99) mg/dL POC Glucose (mg/dL) 119 H (75-99) mg/dL Alkaline Phosphatase (38-126) U/L Total Protein (6.3-8.2) g/dL Albumin (3.5-5.0) g/dL Assessment and Plan Plan: 1 Dyspnea, cough related to recurrent aspiration, with suspected recurrent aspiration related pneumonia artery stable and the patient has process is improved and the patient is currently on IV Zosyn. repeat chest x-ray shows improvement in the left lung perihilar pulmonary infiltrate. 2 Fall at home, following methadone dose increase, CT of the brain, cervical spine, left hip and pelvis showed no acute findings, no acute fracture or dislocation 3 Acute kidney injury, related to ATN, improving 4 Chronic kidney disease stage III at baseline 5 Malnutrition and failure to thrive 6 Recurrent aspiration with multiple hospitalizations, patient is currently on TPN for nutritional support in addition to some oral feedings on soft diet 7 History of gastrectomy 8 Recent hospitalization for urinary tract infection, related to enterococcus faecalis 9 Chronic pain syndrome 10 Previous history of CVA 11 History of hypothyroidism 12 History of spinal stenosis and chronic back pain 13 History of chronic anemia of chronic disease 14 Anxiety/depression Plan: Currently on Zosyn and completed the course of the ECF Remains on aspiration precautions Remains on TPN for now May require jejunostomy tube placement , and based on that it's advisable for this patient to be elevated at [facility] Home once cleared by medicine Surgical services recommending follow-up at the [facility] regarding possible jejunostomy tube placement discharge to [facility] for now
[2021-09-09] MEDS: FAT EMULSION 20% 500 ML in EMPTY BAG 1 BAG IV SCH (16:52)
[2021-09-09 17:20] LABS: Glucose,Whole Blood 123 mg/dL (75-99)
[2021-09-09] MEDS: [UNRECOGNIZED DRUG - OTHER] IV SCH ×6 (17:46)
[2021-09-09] MEDS: SODIUM ACETATE IV SCH ×6 (17:46)
[2021-09-09] MEDS: MAGNESIUM SULFATE IV SCH ×6 (17:46)
[2021-09-09] MEDS: CALCIUM CHLORIDE IV SCH ×6 (17:46)
--- NOTE | 2021-09-09 19:53 | P.PN ---
Subjective Progress Note Date: 09/09/21 Louise Sutton, is a 76-year-old female who presented to [facility] emergency room with a chief complaint of fatigue and cough of yellow greenish phlegm. She was evaluated in the emergency room vital examination on presentation revealed a temperature of 97.8 pulse 113 respiration 18 and blood pressure 119/69 pulse ox 98% on room air Laboratory data revealed a white blood count of 16.9 hemoglobin 12.2 platelet count 564 BUN 38 creatinine 1.77 Testing in the emergency room revealed chest x-ray done in the emergency room revealed bilateral infiltrate suggestive of pneumonia Patient was admitted to medical floor for further evaluation and treatment Past medical history is significant for history of gastrectomy, history of failure to thrive maintained on TPN, history of recurrent reflux with recurrent aspiration pneumonia, history of chronic kidney disease previous history of stroke history of hypothyroidism history of spinal stenosis with chronic back pain. On 09/03/2021 was seen and examined on the medical floor she is alert and oriented 3 in no apparent distress she is still complaining of occasional cough and shortness of breath with activity, today she is also complaining of pain and burning sensation in the epigastric area, otherwise she denies any complaints there is no fever or chills no headache or dizziness no chest pain no nausea or vomiting no diarrhea and no urinary symptoms On 09/04/2021 patient is alert and oriented 3. Patient remains on room air. [facility] services are following. Patient remains on TPN. Patient remains on IV antibiotics Zosyn. Patient reports some shortness of breath. Patient denies nausea vomiting or diarrhea. Patient denies any urinary burning or frequency. On 09/05/2021 patient is alert and oriented 3 in no apparent distress she is still complaining of cough and shortness of breath with activity otherwise she denies any complaints there is no fever or chills no headache or dizziness no chest pain no abdominal pain no nausea or vomiting no diarrhea no blood in the stools no burning with urination no frequency or urgency no hematuria 09/06/2021 patient is alert and oriented 3. Patient complaining of chronic pain. She was evaluated by surgical services for possible J-tube placement. Patient remains on IV Zosyn per infectious disease. Patient denies chest pain. Patient denies nausea vomiting or diarrhea. Patient denies any urinary burning or frequency. Patient remains on TPN On 09/07/2021 patient was seen and examined on the medical floor she is alert and oriented 3 in no apparent distress, she is complaining of occasional cough , also she is complaining of pain especially at night and is requesting to increase in her afternoon dose of methadone, otherwise she denies any complaints there is no fever or chills no headache or dizziness no chest pain no shortness of breath no cough no nausea or vomiting no abdominal pain no diarrhea and no urinary symptoms. Vital exam reveals a temperature of 98.3 pulse 88 respiration 16 blood pressure 138/74 pulse ox 98% on room air, laboratory data reveals a white blood count of 10.5 hemoglobin 8.1 platelet count 411 sodium 138 potassium 5.7 chloride 108 CO2 22 BUN 36 creatinine 1.3 On 09/08/2021 patient was seen and examined on the medical floor she is alert and oriented 3 in no apparent distress, she is still complaining of generalized pain otherwise she denies any complaints there is no fever or chills no headache or dizziness no chest pain no shortness of breath no cough no nausea or vomiting no abdominal pain no diarrhea and no urinary symptoms, patient requesting an increase in methadone to 20 mg twice a day and discontinuing IV dilaudid, orders were initiated, patient remains on IV antibiotics, infectious disease following, also awaiting surgical recommendation regarding J-tube placement. On 09/09/2021 patient was seen and examined on the medical floor she is alert and oriented 3 in no apparent distress there is no fever or chills no headache or dizziness no chest pain no shortness of breath no cough no nausea or vomiting no abdominal pain no diarrhea and no urinary symptoms.. Case was discussed in details with Dr. Guadalupe, at this time no intervention is recommended by him, a transfer to [facility] is not necessary at this time, patient can be continued on her TPN as outpatient, plan is to refer patient to surgery Department at [facility] as outpatient to assess if any enteral nutrition solution can be pursued otherwise she can be maintained on TPN, plan is for discharge to home tomorrow Objective - Vital Signs Vital signs: Vital Signs Temp 98.3 F 09/09/21 14:00 Pulse 96 09/09/21 14:00 Resp 16 09/09/21 14:00 BP 132/61 09/09/21 14:00 Pulse Ox 97 09/09/21 14:00 FiO2 Intake & Output 09/08/21 09/09/21 09/09/21 18:59 06:59 18:59 Intake Total 592 Balance 592 Intake: Oral 592 Other: Voiding Method Toilet Bedside Commode # Voids 5 2 - Exam In general patient is alert and oriented x 3 in no distress HEENT head normocephalic and atraumatic Neck is supple no JVD no goiter no lymphadenopathy no carotid bruit Chest examination reveals a scattered crackles bilaterally Cardiac exam reveals regular heart sounds S1 and S2 no gallops no murmurs Abdomen is soft nontender no organomegaly with normal bowel sounds Extremity exam reveals no edema no cyanosis or clubbing Neurological examination reveals no gross focal deficits - Labs CBC & Chem 7: 09/09/21 05:33 09/09/21 05:33 Labs: Abnormal Lab Results - Last 24 Hours (Table) 09/08/21 09/08/21 09/09/21 Range/Units 17:00 22:58 05:33 WBC (4.50-10.00) X 10*3/uL RBC (4.10-5.20) X 10*6/uL Hgb (12.0-15.0) g/dL Hct (37.2-46.3) % MCH (27.0-32.0) pg MCHC (32.0-37.0) g/dL RDW (11.5-14.5) % Immature Gran # (0.00-0.04) X 10*3/uL Monocytes # (0.20-1.00) X 10*3/uL Eosinophils # (0.04-0.35) X 10*3/uL BUN 46 H (7-17) mg/dL Creatinine 1.33 H (0.52-1.04) mg/dL Glucose 138 H (74-99) mg/dL POC Glucose (mg/dL) 132 H 101 H (75-99) mg/dL Alkaline Phosphatase 160 H (38-126) U/L Total Protein 5.9 L (6.3-8.2) g/dL Albumin 3.3 L (3.5-5.0) g/dL 09/09/21 09/09/21 Range/Units 05:33 11:33 WBC 10.33 H (4.50-10.00) X 10*3/uL RBC 3.11 L (4.10-5.20) X 10*6/uL Hgb 8.3 L (12.0-15.0) g/dL Hct 27.7 L (37.2-46.3) % MCH 26.7 L (27.0-32.0) pg MCHC 30.0 L (32.0-37.0) g/dL RDW 16.9 H (11.5-14.5) % Immature Gran # 0.08 H (0.00-0.04) X 10*3/uL Monocytes # 1.16 H (0.20-1.00) X 10*3/uL Eosinophils # 0.49 H (0.04-0.35) X 10*3/uL BUN (7-17) mg/dL Creatinine (0.52-1.04) mg/dL Glucose (74-99) mg/dL POC Glucose (mg/dL) 119 H (75-99) mg/dL Alkaline Phosphatase (38-126) U/L Total Protein (6.3-8.2) g/dL Albumin (3.5-5.0) g/dL Assessment and Plan Plan: Pneumonia, possibly related to aspiration Acute kidney injury Failure to thrive patient is maintained on TPN, she has a known history of gastrectomy in the past Recent fall at home, no evidence of injury on CT scan of the brain and cervical spine and left hip x-ray done in the emergency room Underlying history of hypothyroidism Underlying history of spinal stenosis with chronic back pain Underlying history of chronic kidney disease Known history of CVA in the past Underlying history of depression and anxiety disorder Pain and burning sensation in the epigastric area. Amylase and lipase within normal limits. Abdomen ultrasound completed showing no acute abnormality At this time patient is admitted to medical floor Home medications reviewed and reordered She was started on IV hydration and IV antibiotics Continue was TPN Pulmonary consultation requested Surgical service is consulted for pulmonary for possible J-tube placement For DVT prophylaxis we will use Lovenox Will follow closely
[2021-09-09 23:07] LABS: Glucose,Whole Blood 116 mg/dL (75-99)
[2021-09-09] MEDS: MIRTAZAPINE 45 MG TABLET PO SCH (23:07)
[2021-09-10] MEDS: INSULIN ASPART (NovoLOG) 100 UNIT/ML VIAL SQ SCH ×3 (00:38→11:36)
[2021-09-10] MEDS: BUTALB/APAP/CAFF 50-325-40MG TAB PO SCH ×3 (01:12→12:57)
[2021-09-10] MEDS: PIPERACILLIN-TAZOBACTAM 3.375 GM in SODIUM CHLORIDE 0.9% 100 ML IVPB SCH ×3 (03:38→11:37)
[2021-09-10 05:50] LABS: Glucose,Whole Blood 116 mg/dL (75-99)
[2021-09-10] MEDS: LEVOTHYROXINE 100 MCG TAB PO SCH (05:58)
--- NOTE | 2021-09-10 07:17 | P.PN ---
Subjective Progress Note Date: 09/09/21 Principal diagnosis: Recurrent aspiration pneumonia Patient is a 76-year-old female with a past medical history significant for gastrectomy, history of recurrent aspiration pneumonia and Central line Infection which the patient uses for TPN, presented to hospital with weakness and fall and has been diagnosed with aspiration pneumonia. On today's evaluation that is 09/09/2021, patient remains to be afebrile, the patient is breathing comfortably on room air , the patient denies any chest pain, the patient mentioned cough but not bringing up any sputum, denies any vo miting and no diarrhea Objective - Vital Signs Vital signs: Vital Signs Temp 98.1 F 09/09/21 07:20 Pulse 88 09/09/21 11:45 Resp 16 09/09/21 07:20 BP 122/67 09/09/21 07:20 Pulse Ox 96 09/09/21 07:20 FiO2 Intake & Output 09/08/21 09/09/21 09/09/21 18:59 06:59 18:59 Intake Total 296 Balance 296 Intake: Oral 296 Other: Voiding Method Toilet Bedside Commode # Voids 5 2 - Exam GENERAL DESCRIPTION: An elderly female lying in bed in no distress RESPIRATORY SYSTEM: Unlabored breathing , decreased breath sounds at bases HEART: S1 S2 regular rate and rhythm , ABDOMEN: Soft , no tenderness EXTREMITIES: No edema feet - Labs CBC & Chem 7: 09/09/21 05:33 09/09/21 05:33 Labs: Abnormal Lab Results - Last 24 Hours (Table) 09/08/21 09/08/21 09/09/21 Range/Units 17:00 22:58 05:33 WBC (4.50-10.00) X 10*3/uL RBC (4.10-5.20) X 10*6/uL Hgb (12.0-15.0) g/dL Hct (37.2-46.3) % MCH (27.0-32.0) pg MCHC (32.0-37.0) g/dL RDW (11.5-14.5) % Immature Gran # (0.00-0.04) X 10*3/uL Monocytes # (0.20-1.00) X 10*3/uL Eosinophils # (0.04-0.35) X 10*3/uL BUN 46 H (7-17) mg/dL Creatinine 1.33 H (0.52-1.04) mg/dL Glucose 138 H (74-99) mg/dL POC Glucose (mg/dL) 132 H 101 H (75-99) mg/dL Alkaline Phosphatase 160 H (38-126) U/L Total Protein 5.9 L (6.3-8.2) g/dL Albumin 3.3 L (3.5-5.0) g/dL 09/09/21 09/09/21 Range/Units 05:33 11:33 WBC 10.33 H (4.50-10.00) X 10*3/uL RBC 3.11 L (4.10-5.20) X 10*6/uL Hgb 8.3 L (12.0-15.0) g/dL Hct 27.7 L (37.2-46.3) % MCH 26.7 L (27.0-32.0) pg MCHC 30.0 L (32.0-37.0) g/dL RDW 16.9 H (11.5-14.5) % Immature Gran # 0.08 H (0.00-0.04) X 10*3/uL Monocytes # 1.16 H (0.20-1.00) X 10*3/uL Eosinophils # 0.49 H (0.04-0.35) X 10*3/uL BUN (7-17) mg/dL Creatinine (0.52-1.04) mg/dL Glucose (74-99) mg/dL POC Glucose (mg/dL) 119 H (75-99) mg/dL Alkaline Phosphatase (38-126) U/L Total Protein (6.3-8.2) g/dL Albumin (3.5-5.0) g/dL Assessment and Plan (1) Aspiration pneumonia Current Visit: No Status: Acute Code(s): J69.0 - PNEUMONITIS DUE TO INHALATION OF FOOD AND VOMIT SNOMED Code(s): 973197215 Plan: 1patient presented to hospital with weakness multiple falls in this patient who did have history of gastrectomy and is maintained on TPN in the outpatient setting concerning for recurrent aspiration pneumonia in this patient currently responding to the Zosyn. 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 3patient benefit from possible jejunostomy tube for feeding that will hopefully prevent recurrent aspiration pneumonia and also line related sepsis secondary to the PICC line and TPN need, for which general surgery is on the case 4- patient has shown clinical improvement and the patient white count has normalized, plan to continue with Zosyn to finish a two-week course of therapy , prescription were provided to the nursing staff for outpatient IV Zosyn Time with Patient: Less than 30
[2021-09-10 07:22] LABS: Ionized Calcium 5.2 mg/dL (4.5-5.3)
[2021-09-10] MEDS: SODIUM CHLORIDE 0.9% 1,000 ML IV SCH (07:23)
[2021-09-10 07:40] VITALS: BP 148/74; RESP 16; TEMP 97.9
[2021-09-10] MEDS: FERROUS SULFATE 325 MG TAB PO SCH (08:13)
[2021-09-10] MEDS: hydrOXYzine pamoate 25 MG CAP PO SCH (08:13)
[2021-09-10] MEDS: METHADONE 10 MG TAB PO SCH (08:14)
[2021-09-10] MEDS: SODIUM BICARBONATE TAB 650 MG TAB PO SCH (08:14)
[2021-09-10] MEDS: ASPIRIN 81 MG PO SCH (08:14)
[2021-09-10] MEDS: PANTOPRAZOLE 40 MG TABLET PO SCH (08:14)
[2021-09-10] MEDS: busPIRone HCl 10 MG TAB PO SCH (08:15)
[2021-09-10] MEDS: buPROPion XL 150 MG TAB.ER.24H PO SCH (08:15)
[2021-09-10] MEDS: ENOXAPARIN 30 MG/0.3 ML SYRINGE SQ SCH (08:17)
[2021-09-10] MEDS: SYMBICORT 160-4.5 MCG INHALER INHALATION SCH (08:30)
[2021-09-10 08:36] LABS: ALT 42 U/L (4-34); AST 46 U/L (14-36); African American GFR (CKD) 47 (>60 ml/min/1.73 sqM); Albumin 3.1 g/dL (3.5-5.0); Albumin/Globulin Ratio 1.2; Alkaline Phosphatase 173 U/L (38-126); Anion Gap 10 mmol/L; Blood Urea Nitrogen 47 mg/dL (7-17); Calcium 8.9 mg/dL (8.4-10.2); Carbon Dioxide 24 mmol/L (22-30); Chloride 104 mmol/L (98-107); Globulin 2.6 g/dL; Glucose 102 mg/dL (74-99); Non-African American GFR(CKD) 41 (>60 ml/min/1.73 sqM); Potassium 4.5 mmol/L (3.5-5.1); Sodium 138 mmol/L (137-145); Total Bilirubin 0.2 mg/dL (0.2-1.3); Total Protein 5.7 g/dL (6.3-8.2)
[2021-09-10 09:17] LABS: Basophils # (A) 0.09 X 10*3/uL (0.00-0.10); Basophils % (A) 0.8 %; Eosinophils # (A) 0.46 X 10*3/uL (0.04-0.35); Eosinophils % (A) 4.2 %; HCT 26.9 % (37.2-46.3); HGB 8.1 g/dL (12.0-15.0); Immature Grans, Automated 0.6 %; Lymphocytes % (A) 13.9 %; MCH 26.6 pg (27.0-32.0); MCHC 30.1 g/dL (32.0-37.0); MCV 88.5 fL (80.0-97.0); Mean Platelet Volume 8.8 fL (9.5-12.2); Monocytes # (A) 1.07 X 10*3/uL (0.20-1.00); Monocytes % (A) 9.9 %; NRBC Per 100 WBC 0 /100 WBCS (0.0-0.0); Neutrophils # (A) 7.64 X 10*3/uL (1.80-7.70); Neutrophils % (A) 70.6 %; Platelet Count 354 X 10*3/uL (140-440); RBC 3.04 X 10*6/uL (4.10-5.20); RDW 16.9 % (11.5-14.5); WBC 10.83 X 10*3/uL (4.50-10.00)
[2021-09-10 11:33] LABS: Glucose,Whole Blood 92 mg/dL (75-99)
[2021-09-10] MEDS: IPRATROPIUM-ALBUTEROL 3 ML NEB INHALATION PRN (11:45)
[2021-09-10 11:48] VITALS: PULSE 80
--- NOTE | 2021-09-10 12:44 | P.DS ---
Providers Date of admission: 09/01/21 20:30 Expected date of discharge: 09/10/21 Attending physician: Palmer Dseir Consults: 09/02/21 08:03 Consult Physician Routine Consulting Provider: Geovanny Womack Consult Reason/Comments: pneumonia Do you want consulting provider notified?: Yes 09/04/21 10:21 Consult Physician Routine Consulting Provider: Jas Gregorio Consult Reason/Comments: Recurrent pneumonia, aspiration Do you want consulting provider notified?: Yes 09/05/21 09:06 Consult Physician Routine Consulting Provider: Nathan Guadalupe Consult Reason/Comments: ? J tube for recurrent aspiration Do you want consulting provider notified?: Yes Primary care physician: Ale Eli Hospital Course: Diagnosis on discharge: Pneumonia, possibly related to aspiration Acute kidney injury Failure to thrive patient is maintained on TPN, she has a known history of gastrectomy in the past Recent fall at home, no evidence of injury on CT scan of the brain and cervical spine and left hip x-ray done in the emergency room Underlying history of hypothyroidism Underlying history of spinal stenosis with chronic back pain Underlying history of chronic kidney disease Known history of CVA in the past Underlying history of depression and anxiety disorder Pain and burning sensation in the epigastric area. Amylase and lipase within normal limits. Abdomen ultrasound completed showing no acute abnormality Hospital course: Louise Sutton, is a 76-year-old female who presented to [facility] emergency room with a chief complaint of fatigue and cough of yellow greenish phlegm. She was evaluated in the emergency room vital examination on presentation revealed a temperature of 97.8 pulse 113 respiration 18 and blood pressure 119/69 pulse ox 98% on room air Laboratory data revealed a white blood count of 16.9 hemoglobin 12.2 platelet count 564 BUN 38 creatinine 1.77 Testing in the emergency room revealed chest x-ray done in the emergency room revealed bilateral infiltrate suggestive of pneumonia Patient was admitted to medical floor for further evaluation and treatment Past medical history is significant for history of gastrectomy, history of failure to thrive maintained on TPN, history of recurrent reflux with recurrent aspiration pneumonia, history of chronic kidney disease previous history of stroke history of hypothyroidism history of spinal stenosis with chronic back pain. On 09/03/2021 was seen and examined on the medical floor she is alert and oriented 3 in no apparent distress she is still complaining of occasional cough and shortness of breath with activity, today she is also complaining of pain and burning sensation in the epigastric area, otherwise she denies any complaints there is no fever or chills no headache or dizziness no chest pain no nausea or vomiting no diarrhea and no urinary symptoms On 09/04/2021 patient is alert and oriented 3. Patient remains on room air. Pulmonary services are following. Patient remains on TPN. Patient remains on IV antibiotics Zosyn. Patient reports some shortness of breath. Patient denies nausea vomiting or diarrhea. Patient denies any urinary burning or frequency. On 09/05/2021 patient is alert and oriented 3 in no apparent distress she is still complaining of cough and shortness of breath with activity otherwise she denies any complaints there is no fever or chills no headache or dizziness no chest pain no abdominal pain no nausea or vomiting no diarrhea no blood in the stools no burning with urination no frequency or urgency no hematuria 09/06/2021 patient is alert and oriented 3. Patient complaining of chronic pain. She was evaluated by surgical services for possible J-tube placement. Patient remains on IV Zosyn per infectious disease. Patient denies chest pain. Patient denies nausea vomiting or diarrhea. Patient denies any urinary burning or frequency. Patient remains on TPN On 09/07/2021 patient was seen and examined on the medical floor she is alert and oriented 3 in no apparent distress, she is complaining of occasional cough , also she is complaining of pain especially at night and is requesting to increase in her afternoon dose of methadone, otherwise she denies any complaints there is no fever or chills no headache or dizziness no chest pain no shortness of breath no cough no nausea or vomiting no abdominal pain no diarrhea and no urinary symptoms. Vital exam reveals a temperature of 98.3 pulse 88 respiration 16 blood pressure 138/74 pulse ox 98% on room air, laboratory data reveals a white blood count of 10.5 hemoglobin 8.1 platelet count 411 sodium 138 potassium 5.7 chloride 108 CO2 22 BUN 36 creatinine 1.3 On 09/08/2021 patient was seen and examined on the medical floor she is alert and oriented 3 in no apparent distress, she is still complaining of generalized pain otherwise she denies any complaints there is no fever or chills no headache or dizziness no chest pain no shortness of breath no cough no nausea or vomiting no abdominal pain no diarrhea and no urinary symptoms, patient requesting an increase in methadone to 20 mg twice a day and discontinuing IV dilaudid, orders were initiated, patient remains on IV antibiotics, infectious disease following, also awaiting surgical recommendation regarding J-tube placement. On 09/09/2021 patient was seen and examined on the medical floor she is alert and oriented 3 in no apparent distress there is no fever or chills no headache or dizziness no chest pain no shortness of breath no cough no nausea or vomiting no abdominal pain no diarrhea and no urinary symptoms.. Case was discussed in details with Dr. Guadalupe, at this time no intervention is recommended by him, a transfer to [facility] is not necessary at this time, patient can be continued on her TPN as outpatient, plan is to refer patient to surgery Department at [facility] as outpatient to assess if any enteral nutrition solution can be pursued otherwise she can be maintained on TPN, plan is for discharge to home tomorrow On 09/10/2021 patient was seen and examined on the medical floor she is alert an d oriented 3 in no apparent distress she 16 up in the bed she denies any complaints at this time there is no fever or chills no headache or dizziness no chest pain no shortness of breath no cough no nausea or vomiting no abdominal pain no diarrhea no blood in the stools no burning with urination no frequency or urgency and no hematuria. Patient is stable for discharge to home today, she will be continued on TPN, and on IV antibiotics as directed by Dr. Gregorio, she will be followed by visiting nurse. Recommendation from Dr. Guadalupe is still refer the patient to [facility] surgical department as outpatient to assess if there is any possibility of proceeding with J-tube placement for nutrition. Patient Condition at Discharge: Fair Plan - Discharge Summary Discharge Rx Participant: No New Discharge Prescriptions: New Methadone [Dolophine] 20 mg PO BID tab Piperacillin-Tazobactam [Zosyn] 3.375 gm IVPB Q8H each Continue Ferrous Sulfate [Iron (65 MG Elemental)] 325 mg PO DAILY@1200 calcitrioL [Calcitriol] 1 mcg PO MOWEFR busPIRone HCL [Buspar] 30 mg PO BID Butalb/APAP/Caff 50-325-40Mg [Fioricet 50-325-40] 1 tab PO Q6H buPROPion XL [Wellbutrin XL] 150 mg PO DAILY Albuterol Sulfate [Albuterol Sulfate Hfa] 2 puff INHALATION RT-Q6H PRN PRN Reason: Shortness Of Breath polyethylene glycoL 3350 [Miralax] 17 gm PO DAILY PRN PRN Reason: Constipation hydrOXYzine pamoate [Vistaril] 100 mg PO TID Omeprazole 20 mg PO DAILY Furosemide [Lasix] 20 mg PO DAILY PRN PRN Reason: Edema Sodium Bicarbonate Tab 650 mg PO DAILY 30 Days #30 tab Ondansetron [Zofran] 4 mg PO Q6H PRN PRN Reason: Nausea buPROPion XL [Wellbutrin XL] 300 mg PO DAILY Budesonide/Formoterol Fumarate [Symbicort 160-4.5 Mcg Inhaler] 2 puff INHALATION RT-BID Aspirin EC [Ecotrin Low Dose] 81 mg PO DAILY Levothyroxine Sodium [Synthroid] 100 mcg PO DAILY@0630 30 Days #30 tab Mirtazapine [Remeron] 45 mg PO HS Naloxone HCl [Narcan] 4 mg NASAL ONCE PRN PRN Reason: Overdose Discontinued HYDROmorphone [Dilaudid] 2 mg PO Q6H PRN PRN Reason: Pain Methadone [Dolophine] 20 mg PO DAILY Methadone [Dolophine] 10 mg PO DAILY@1600 Discharge Medication List Ferrous Sulfate [Iron (65 MG Elemental)] 325 mg PO DAILY@1200 11/06/15 [History] calcitrioL [Calcitriol] 1 mcg PO MOWEFR 06/07/19 [History] busPIRone HCL [Buspar] 30 mg PO BID 04/14/20 [History] Butalb/APAP/Caff 50-325-40Mg [Fioricet 50-325-40] 1 tab PO Q6H 06/30/20 [History] buPROPion XL [Wellbutrin XL] 150 mg PO DAILY 11/04/20 [History] buPROPion XL [Wellbutrin XL] 300 mg PO DAILY 02/20/21 [History] Albuterol Sulfate [Albuterol Sulfate Hfa] 2 puff INHALATION RT-Q6H PRN 04/07/21 [History] Budesonide/Formoterol Fumarate [Symbicort 160-4.5 Mcg Inhaler] 2 puff INHALATION RT-BID 04/07/21 [History] Aspirin EC [Ecotrin Low Dose] 81 mg PO DAILY 05/12/21 [History] Levothyroxine Sodium [Synthroid] 100 mcg PO DAILY@0630 30 Days #30 tab 06/19/21 [Rx] Furosemide [Lasix] 20 mg PO DAILY PRN 08/08/21 [History] Omeprazole 20 mg PO DAILY 08/08/21 [History] hydrOXYzine pamoate [Vistaril] 100 mg PO TID 08/08/21 [History] polyethylene glycoL 3350 [Miralax] 17 gm PO DAILY PRN 08/08/21 [History] Sodium Bicarbonate Tab 650 mg PO DAILY 30 Days #30 tab 08/21/21 [Rx] Mirtazapine [Remeron] 45 mg PO HS 09/01/21 [History] Naloxone HCl [Narcan] 4 mg NASAL ONCE PRN 09/01/21 [History] Ondansetron [Zofran] 4 mg PO Q6H PRN 09/01/21 [History] Methadone [Dolophine] 20 mg PO BID tab 09/10/21 [Rx] Piperacillin-Tazobactam [Zosyn] 3.375 gm IVPB Q8H each 09/10/21 [Rx] Follow up Appointment(s)/Referral(s): Ale Eli MD [Primary Care Provider] - 09/11/21 1:00 pm [facility], [NON-STAFF] - As Needed Care,[facility] [NON-STAFF] - As Needed [facility], [REFERRING] - As Needed ([facility] will deliver TPN and IV antibiotic to your home this evening between 6-8pm. ) Patient Instructions/Handouts: Aspiration Pneumonia (DC)
--- NOTE | 2021-09-10 13:27 | P.PN ---
Subjective Progress Note Date: 09/10/21 Principal diagnosis: Falls, cough, chronic aspiration This is a 76-year-old white female patient who is well-known to our service from multiple hospitalizations for recurrent aspiration pneumonia. Patient had a history of previous gastrectomy, chronic dysphagia, recurrent aspiration pneumonia, chronic malnutrition and failure to thrive, patient is maintained on TPN in addition to a soft diet by mouth. Patient also has history of chronic kidney disease stage III, hypothyroidism, migraine headaches, chronic pain syndrome, history of CVA, and history of PICC line infection and sepsis. Patient came into the emergency department on 09/01/2021 for evaluation of a fall, and pain in left hip, bilateral shoulders, and patient apparently bumped her head in the fall as well. She had a recent adjustment of her methadone dose which was increased to 20 mg in the morning and 10 mg at night and the dose increased made her fatigued and lightheaded. She reports coughing up some green colored phlegm, no hemoptysis, no chest discomfort. Her chest x-ray showing bilateral airspace consolidation which had increased since her last chest x-ray from 08/08/2021. X-ray of the left hip showed left hip prosthesis, no fracture or dislocation. X-ray of the pelvis showed no acute abnormality of the pelvis, no fracture. CT of the brain and cervical spine was completed showing no acute intracranial abnormality, and mild degenerative hypertrophic changes in the cervical spine, no fracture. There were nodular infiltrates at the lung apices there were also seen on CT from 01/28/2021. Room air pulse ox in the 100%, afebrile, hemodynamics stable. Admission labs have been reviewed showing white blood cell count of 16.9, hemoglobin 12.2, sodium of 141, potassium is 4.2, CO2 was 18, BUN was 38, creatinine is 1.7, CRP was elevated at 15.5, lipase was normal at 75, troponin was less than 0.012, alkaline phosphatase was 321, ALT was 36, and AST was 27, urinalysis showed mildly increased white blood cells at 13, 1+ ketones, small amount of leukocyte esterase, she tested negative for COVID 19, influenza A and B. On 09/03/2021 patient seen in follow-up on medical surgical floor, she is breathing comfortably, only occasional cough, no chest discomfort. No hemoptysis, no phlegm production. No wheezing, lung sounds are clear, diminished at the bases, no rhonchi or crackles noted. Room air pulse ox is 98%, afebrile. Today's labs have been reviewed, white blood cell count is 13.5, hemoglobin is 10.2, sodium is 137, potassium 3.3, CO2 is 19, BUN is 31, and creatinine is 1.26, renal function is improving. Pro-calcitonin level was 0.28. Patient remains on azithromycin and Rocephin for possibility of aspiration related pneumonia. She is tolerating soft diet in the form of pudding, she continues on TPN which is running at 30 ML per hour, and IV hydration with 20#. A 50 ML per hour On 09/06/2021 patient seen in follow-up on medical floor. She is awake and alert, in no acute distress, states she has a mild chest congestion, but appears to be in no acute distress, room air pulse ox is 96-97%, she is breathing comfortably, no complaints of chest discomfort. No hemoptysis. PICC line was inserted, patient continues on TPN, she remains on Zosyn for aspiration related pneumonia. Vital signs have been stable, no altered mentation, no fever or chills. Blood and urine cultures have been negative, we were unable to send a sputum culture as the patient is not producing any sputum. Lung sounds are diminished, no crackles or wheezes. No reported nausea or vomiting. She remains on soft foods. Yesterday we placed a consult to Gen. surgery for possibility of a jejunostomy insertion. Awaiting their further recommendations. On 09/10/2021 patient seen in follow-up on medical surgical floor. She is breathing comfortably, denies any worsening dyspnea, still has some slight chest congestion but no acute distress, room air pulse ox 98%, vital signs are stable, blood pressure stable, no fever or chills, no chest pain, no hemoptysis, she continues on TPN for nutritional support, she is on Zosyn for antibiotic coverage. She has received a PICC line in her left upper extremity during this admission, her blood and urine cultures have been negative, clinically she has been stable, today's labs have been reviewed showing stable white count of 10.8, hemoglobin of 8.1, electrolytes are within normal limits, BUN is 47, creatinine is 1.29. Gen. surgery has evaluated the patient and deferred J-tube placement to [facility] because of her complex medical history and most of her surgeries haven't been done at the [facility]. At this time all jail facilities have declined the patient, currently the plan is for the patient to return home, and there is a family member there will be attending to her medical needs Objective - Vital Signs Vital signs: Vital Signs Temp 97.9 F 09/10/21 07:40 Pulse 80 09/10/21 11:58 Resp 16 09/10/21 07:40 BP 148/74 09/10/21 07:40 Pulse Ox 98 09/10/21 07:40 FiO2 Intake & Output 09/09/21 09/10/21 09/10/21 18:59 06:59 18:59 Intake Total 888 1500 296 Balance 888 1500 296 Weight 43.9 kg Intake: Intake, IV Titration 1200 Amount Fat Emulsion 20% 500 ml 500 In Empty Bag 1 bag @ 42 mls/hr IV Mo [facility] Rx#: [id number] Piperacillin-Tazobactam 3 100 .375 gm In Sodium Chloride 0.9% 100 ml @ 25 mls/hr IVPB Q8H [facility] Rx#: [id number] Sodium Acetate 40 meq 600 Magnesium Sulfate gm 0.5 gm Calcium Chloride 0.33 gm In Amino Acids 5 %/ Dextrose 20 % 1,000 ml @ 50 mls/hr IV .BY DURATION [facility] Rx#:[id number] Oral 888 300 296 Other: Voiding Method Toilet Toilet # Voids 3 4 # Bowel Movements 1 0 - Exam GENERAL EXAM: Alert, very pleasant, 76-year-old white female, cachectic, on room air pulse ox of 98% but appears to be in no acute distress, on room air comfortable in no apparent distress. HEAD: Normocephalic/atraumatic. EYES: Normal reaction of pupils, equal size. Conjunctiva pink, sclera white. NOSE: Clear with pink turbinates. THROAT: No erythema or exudates. NECK: No masses, no JVD, no thyroid enlargement, no adenopathy. CHEST: No chest wall deformity. Symmetrical expansion. LUNGS: Equal air entry with no crackles, wheeze, rhonchi or dullness. CVS: Regular rate and rhythm, normal S1 and S2, no gallops, no murmurs, no rubs ABDOMEN: Soft, nontender. No hepatosplenomegaly, normal bowel sounds, no guarding or rigidity. EXTREMITIES: No clubbing, no edema, no cyanosis, 2+ pulses and upper and lower extremities. MUSCULOSKELETAL: Muscle strength and tone normal. SPINE: No scoliosis or deformity SKIN: No rashes CENTRAL NERVOUS SYSTEM: Alert and oriented -3. No focal deficits, tone is normal in all 4 extremities. PSYCHIATRIC: Alert and oriented -3. Appropriate affect. Intact judgment and insight. - Labs CBC & Chem 7: 09/10/21 06:27 09/10/21 06:27 Labs: Abnormal Lab Results - Last 24 Hours (Table) 09/09/21 09/09/21 09/10/21 Range/Units 17:19 23:05 05:49 WBC (4.50-10.00) X 10*3/uL RBC (4.10-5.20) X 10*6/uL Hgb (12.0-15.0) g/dL Hct (37.2-46.3) % MCH (27.0-32.0) pg MCHC (32.0-37.0) g/dL RDW (11.5-14.5) % MPV (9.5-12.2) fL Immature Gran # (0.00-0.04) X 10*3/uL Monocytes # (0.20-1.00) X 10*3/uL Eosinophils # (0.04-0.35) X 10*3/uL BUN (7-17) mg/dL Creatinine (0.52-1.04) mg/dL Glucose (74-99) mg/dL POC Glucose (mg/dL) 123 H 116 H 116 H (75-99) mg/dL AST (14-36) U/L ALT (4-34) U/L Alkaline Phosphatase (38-126) U/L Total Protein (6.3-8.2) g/dL Albumin (3.5-5.0) g/dL 09/10/21 09/10/21 Range/Units 06:27 06:27 WBC 10.83 H (4.50-10.00) X 10*3/uL RBC 3.04 L (4.10-5.20) X 10*6/uL Hgb 8.1 L (12.0-15.0) g/dL Hct 26.9 L (37.2-46.3) % MCH 26.6 L (27.0-32.0) pg MCHC 30.1 L (32.0-37.0) g/dL RDW 16.9 H (11.5-14.5) % MPV 8.8 L (9.5-12.2) fL Immature Gran # 0.07 H (0.00-0.04) X 10*3/uL Monocytes # 1.07 H (0.20-1.00) X 10*3/uL Eosinophils # 0.46 H (0.04-0.35) X 10*3/uL BUN 47 H (7-17) mg/dL Creatinine 1.29 H (0.52-1.04) mg/dL Glucose 102 H (74-99) mg/dL POC Glucose (mg/dL) (75-99) mg/dL AST 46 H (14-36) U/L ALT 42 H (4-34) U/L Alkaline Phosphatase 173 H (38-126) U/L Total Protein 5.7 L (6.3-8.2) g/dL Albumin 3.1 L (3.5-5.0) g/dL Assessment and Plan Plan: Assessment: #1. Dyspnea, cough related to recurrent aspiration, with the possibility of recurrent aspiration related pneumonia #2. Fall at home, following methadone dose increase, CT of the brain, cervical spine, left hip and pelvis showed no acute findings, no acute fracture or dislocation #3. Acute kidney injury, related to ATN, improving #4. Chronic kidney disease stage III at baseline #5. Malnutrition and failure to thrive #6. Recurrent aspiration with multiple hospitalizations, patient is currently on TPN for nutritional support in addition to some oral feedings on soft diet #7. History of gastrectomy #8. Recent hospitalization for urinary tract infection, related to enterococcus faecalis #9. Chronic pain syndrome #10. Previous history of CVA #11. History of hypothyroidism #12. History of spinal stenosis and chronic back pain #13. History of chronic anemia of chronic disease #14. Anxiety/depression Plan: Patient is breathing comfortably No acute events overnight Maintaining stable O2 saturations on room air Her last chest x-ray from 09/08/2021 showed persistent bilateral midlung opacities with some improved aeration of the left lung base Clinically patient has been stable She continues on TPN with some oral feedings She still remains a high risk for recurrent aspiration She will need to follow-up with the [facility] on outpatient basis for possibility of jejunostomy tube insertion From a pulmonary perspective she stable for discharge home today with antibiotics of ID service recommendations PICC line has been placed and patient will be returning home with IV Zosyn course Patient follow-up with Dr. Sanchez in the office in 7-10 days I have personally seen and examined the patient, performed the documentation and the assessment and plan as written. Number of minutes spent on the visit: [10] I have personally seen and examined the patient and reviewed the documentation. I performed a joint evaluation with the nurse practitioner in this evaluation was done more than 20 minutes. I fully agree with the documentation above and the plan of care. The patient can be discharged home today on a course of antibiotics and the patient will complete her IV Zosyn at home. Recommend follow-up at [facility] regarding her chronic dysphagia and her need for a J-tube. Time with Patient: Less than 30
== END 2021-09-10 13:01 | disposition home health service (06) | DRG 871 ==
LOC: EC 14:07 → 4SSUR 20:30
PROVIDERS: ADMIT Internal Medicine; ATTEND Internal Medicine
PROC: 3E0436Z Introduction of Nutritional Substance into Central Vein, Percutaneous Approach (ICD-10-PCS; principal; 2021-09-01)
DX: A41.9 Sepsis, unspecified organism (principal); N17.0 Acute kidney failure with tubular necrosis; E43 Unspecified severe protein-calorie malnutrition; J69.0 Pneumonitis due to inhalation of food and vomit; F11.23 Opioid dependence with withdrawal; N18.4 Chronic kidney disease, stage 4 (severe); Z68.1 Body mass index [BMI] 19.9 or less, adult; J44.0 Chronic obstructive pulmonary disease with (acute) lower respiratory infection; W19.XXXA Unspecified fall, initial encounter; M25.559 Pain in unspecified hip; I12.9 Hypertensive chronic kidney disease with stage 1 through stage 4 chronic kidney disease, or unspecified chronic kidney disease; D63.1 Anemia in chronic kidney disease; M25.552 Pain in left hip; M25.551 Pain in right hip; M25.512 Pain in left shoulder; M25.511 Pain in right shoulder; E03.9 Hypothyroidism, unspecified; F32.A Depression, unspecified; F41.0 Panic disorder [episodic paroxysmal anxiety]; G89.4 Chronic pain syndrome; Z87.11 Personal history of peptic ulcer disease; R62.7 Adult failure to thrive; Y92.009 Unspecified place in unspecified non-institutional (private) residence as the place of occurrence of the external cause; Z20.822 Contact with and (suspected) exposure to COVID-19; Z86.16 Personal history of COVID-19; Z79.51 Long term (current) use of inhaled steroids; M19.90 Unspecified osteoarthritis, unspecified site; K21.9 Gastro-esophageal reflux disease without esophagitis; M54.2 Cervicalgia; G43.909 Migraine, unspecified, not intractable, without status migrainosus; K22.4 Dyskinesia of esophagus; Z79.82 Long term (current) use of aspirin; Z79.890 Hormone replacement therapy; Z79.899 Other long term (current) drug therapy; Z80.41 Family history of malignant neoplasm of ovary; Z80.51 Family history of malignant neoplasm of kidney; Z82.49 Family history of ischemic heart disease and other diseases of the circulatory system; Z86.73 Personal history of transient ischemic attack (TIA), and cerebral infarction without residual deficits; Z87.01 Personal history of pneumonia (recurrent); Z90.3 Acquired absence of stomach [part of]; Z90.710 Acquired absence of both cervix and uterus; Z96.642 Presence of left artificial hip joint; Z82.5 Family history of asthma and other chronic lower respiratory diseases; Z86.19 Personal history of other infectious and parasitic diseases; M48.00 Spinal stenosis, site unspecified; Z91.81 History of falling; R41.3 Other amnesia; Z80.52 Family history of malignant neoplasm of bladder; Z88.5 Allergy status to narcotic agent; Z88.8 Allergy status to other drugs, medicaments and biological substances; Z91.048 Other nonmedicinal substance allergy status
CPT/HCPCS: 36415; 70450; 71045; 72125; 72170; 73502; 76700; 80048; 80053; 81001; 82150; 82330; 83605; 83690; 83735; 84100; 84145; 84478; 84484; 85025; 85027; 86140; 87040; 87086; 87502; 87635; 93005; 94640; 96361; 96365; 96366; 96367; 96368; 99285

== ENCOUNTER 2021-09-23 05:44 | Inpatient (IN) | payer MEDICARE, OTHER ==
--- NOTE | 2021-09-23 06:34 | XR ---
EXAMINATION TYPE: XR chest 2V DATE OF EXAM: 09/23/2021 COMPARISON: 09/08/2021 HISTORY: Cough TECHNIQUE: FINDINGS: There is patchy airspace consolidation in the mid lung calixto. Heart size is normal. No hea rt failure. There is left-sided central venous catheter with tip in the superior vena cava. IMPRESSION: Pneumonic consolidation which appears increased compared to old exam.
[2021-09-23] MEDS ORDERED: BUTALB/APAP/CAFF 50-325-40MG TAB PO STA (06:35)
[2021-09-23 07:15] LABS: Anisocytosis Slight; Basophils # (A) 0.1 k/uL (0-0.2); Basophils % (A) 1 %; Eosinophils # (A) 0.7 k/uL (0-0.7); Eosinophils % (A) 7 %; HCT 34.3 % (34.0-46.0); HGB 10.2 gm/dL (11.4-16.0); Hypochromasia Moderate; Lymphocytes # (A) 1.2 k/uL (1.0-4.8); Lymphocytes % (A) 12 %; MCH 27.4 pg (25.0-35.0); MCHC 29.7 g/dL (31.0-37.0); MCV 92.2 fL (80.0-100.0); Mean Platelet Volume 6.9; Monocytes # (A) 0.5 k/uL (0-1.0); Monocytes % (A) 5 %; Neutrophils # (A) 7.6 k/uL (1.3-7.7); Neutrophils % (A) 74 %; Platelet Count 470 k/uL (150-450); RBC 3.72 m/uL (3.80-5.40); RDW 17.5 % (11.5-15.5); WBC 10.2 k/uL (3.8-10.6)
[2021-09-23 07:30] LABS: Albumin 3.4 g/dL (3.5-5.0); Calcium 8.3 mg/dL (8.4-10.2); Potassium 3.7 mmol/L (3.5-5.1); Total Bilirubin 0.3 mg/dL (0.2-1.3); Total Protein 6.4 g/dL (6.3-8.2)
[2021-09-23] MEDS ORDERED: PNEUMONIA PROTOCOL UTILIZED 1 EACH MISC PO PRN (07:54)
[2021-09-23] MEDS ORDERED: PIPERACILLIN-TAZOBACTAM 3.375 GM in SODIUM CHLORIDE 0.9% 100 ML IVPB STA (07:54)
--- NOTE | 2021-09-23 07:54 | ED ---
General Adult HPI - General Chief complaint: Shortness of Breath Stated complaint: Upper Respiratory Infection Time Seen by Provider: 09/23/21 06:06 Source: patient, RN notes reviewed Mode of arrival: wheelchair Limitations: no limitations - History of Present Illness Initial comments: 76-year-old female presents emergency Department chief complaint of cough congestion. Patient states that she was recent hospital several weeks ago for pneumonia. Patient states she went home on IV antibiotics. She states that she was since stopping symptoms have greatly worsen. She's had increasing congestion. Patient states her concern that she may have aspiration pneumonia. Patient states she is supposed be evaluated for J-tube. Patient does receive TPN treatment. Patient states that she's felt just had a fever, chills. - Related Data Home Medications Medication Instructions Recorded Confirmed Ferrous Sulfate [Iron (65 MG 325 mg PO DAILY@1200 11/06/15 09/01/21 Elemental)] calcitrioL [Calcitriol] 1 mcg PO MOWEFR 06/07/19 09/01/21 busPIRone HCL [Buspar] 30 mg PO BID 04/14/20 09/01/21 Butalb/APAP/Caff 50-325-40Mg 1 tab PO Q6H 06/30/20 09/01/21 [Fioricet 50-325-40] buPROPion XL [Wellbutrin XL] 150 mg PO DAILY 11/04/20 09/01/21 buPROPion XL [Wellbutrin XL] 300 mg PO DAILY 02/20/21 09/01/21 Albuterol Sulfate [Albuterol 2 puff INHALATION RT-Q6H PRN 04/07/21 09/01/21 Sulfate Hfa] Budesonide/Formoterol Fumarate 2 puff INHALATION RT-BID 04/07/21 09/01/21 [Symbicort 160-4.5 Mcg Inhaler] Aspirin EC [Ecotrin Low Dose] 81 mg PO DAILY 05/12/21 09/01/21 Furosemide [Lasix] 20 mg PO DAILY PRN 08/08/21 09/01/21 Omeprazole 20 mg PO DAILY 08/08/21 09/01/21 hydrOXYzine pamoate [Vistaril] 100 mg PO TID 08/08/21 09/01/21 polyethylene glycoL 3350 [Miralax] 17 gm PO DAILY PRN 08/08/21 09/01/21 Mirtazapine [Remeron] 45 mg PO HS 09/01/21 09/01/21 Naloxone HCl [Narcan] 4 mg NASAL ONCE PRN 09/01/21 09/01/21 Ondansetron [Zofran] 4 mg PO Q6H PRN 09/01/21 09/01/21 Previous Rx's Medication Instructions Recorded Levothyroxine Sodium [Synthroid] 100 mcg PO DAILY@0630 30 Days #30 06/19/21 tab Sodium Bicarbonate Tab 650 mg PO DAILY 30 Days #30 tab 08/21/21 Methadone [Dolophine] 20 mg PO BID tab 09/10/21 Piperacillin-Tazobactam [Zosyn] 3.375 gm IVPB Q8H each 09/10/21 Allergies Allergy/AdvReac Type Severity Reaction Status Date / Time mold Allergy Itching Verified 09/23/21 05:54 denosumab [From Prolia] AdvReac SEVERE Verified 09/23/21 05:54 CALCIUM LOSS morphine AdvReac Confusion Verified 09/23/21 05:54 DUST Allergy Itching Uncoded 09/23/21 05:54 Review of Systems ROS Statement: Those systems with pertinent positive or pertinent negative responses have been documented in the HPI. ROS Other: All systems not noted in ROS Statement are negative. Past Medical History Past Medical History: Asthma, COPD, CVA/TIA, GERD/Reflux, Memory Impairment, Osteoarthritis (OA), Pneumonia, Renal Disease, Respiratory Disorder, Thyroid Disorder Additional Past Medical History / Comment(s): Aspiration, pneumonias, covid pneumonia, protein calorie malnutrition, pt was on TPN with PICC line managed thru [facility], chronic anemia, gastric ulcers/PUD, pancreatitis, bowel obstruction/surgery, constipation, CKD stage IV, TIA, chronic migraines, chronic back/cervical pain/spinal stenosis, hypothyroid, hyponatremia. History of Any Multi-Drug Resistant Organisms: Other MDRO Past Surgical History: Back Surgery, Bowel Resection, Hysterectomy, Joint Replacement Additional Past Surgical History / Comment(s): LOWER BACK SURGERY lamenectomy/discetomy then had a revison of that sx. 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, nasal sx d/t broken nose, colonoscopy/egd, PAIN CLINIC PROCEDURES, PORT A CATH INSERTION, LT A[facility]OLA Past Anesthesia/Blood Transfusion Reactions: No Reported Reaction Additional Past Anesthesia/Blood Transfusion Reaction / Comment(s): PT RECEIVED BLOOD TRANSFUSIONS AFTER STOMACH SURGERY Past Psychological History: Anxiety, Depression, Panic Disorder Smoking Status: Never smoker Past Alcohol Use History: None Reported Past Drug Use History: None Reported - Past Family History Father Family Medical History: Cancer, Coronary Artery Disease (CAD) Additional Family Medical History / Comment(s): FATHER HAD BLADDER AND KIDNEY CANCER. FATHER HAD TB WHEN HE WAS A CHILD .FATHER AT AGE 87. Mother Family Medical History: Cancer Additional Family Medical History / Comment(s): MOTHER AT AGE 58 OF OVARIAN CANCER. General Exam General appearance: alert, in no apparent distress Head exam: Present: atraumatic, normocephalic, normal inspection Eye exam: Present: normal appearance, PERRL, EOMI. Absent: scleral icterus, conjunctival injection, periorbital swelling ENT exam: Present: normal exam, normal oropharynx, mucous membranes moist Neck exam: Present: normal inspection, full ROM. Absent: tenderness, meningismus, lymphadenopathy Respiratory exam: Present: rhonchi. Absent: normal lung sounds bilaterally, respiratory distress, wheezes, rales, stridor Cardiovascular Exam: Present: regular rate, normal rhythm, normal heart sounds. Absent: systolic murmur, diastolic murmur, rubs, gallop, clicks GI/Abdominal exam: Present: soft, normal bowel sounds. Absent: distended, tend erness, guarding, rebound, rigid Course Vital Signs 09/23/21 05:50 Temperature 97.8 F Pulse Rate 82 Respiratory 18 Rate Blood Pressure 141/88 O2 Sat by Pulse 99 Oximetry Medical Decision Making - Medical Decision Making X-ray shows worsening consolidation on x-ray. She recently stopped IV antibiotics. Patient will be admitted for possible medication adjustment, fu rther treatment. - Lab Data Result diagrams: 09/23/21 07:09 09/23/21 07:09 Lab Results 09/23/21 09/23/21 09/23/21 Range/Units 07:09 07:09 07:09 WBC 10.2 (3.8-10.6) k/uL RBC 3.72 L (3.80-5.40) m/uL Hgb 10.2 L (11.4-16.0) gm/dL Hct 34.3 (34.0-46.0) % MCV 92.2 (80.0-100.0) fL MCH 27.4 (25.0-35.0) pg MCHC 29.7 L (31.0-37.0) g/dL RDW 17.5 H (11.5-15.5) % Plt Count 470 H (150-450) k/uL MPV 6.9 Neutrophils % 74 % Lymphocytes % 12 % Monocytes % 5 % Eosinophils % 7 % Basophils % 1 % Neutrophils # 7.6 (1.3-7.7) k/uL Lymphocytes # 1.2 (1.0-4.8) k/uL Monocytes # 0.5 (0-1.0) k/uL Eosinophils # 0.7 (0-0.7) k/uL Basophils # 0.1 (0-0.2) k/uL Hypochromasia Moderate Anisocytosis Slight Sodium 142 (137-145) mmol/L Potassium 3.7 (3.5-5.1) mmol/L Chloride 110 H (98-107) mmol/L Carbon Dioxide 22 (22-30) mmol/L Anion Gap 10 mmol/L BUN 17 (7-17) mg/dL Creatinine 1.31 H (0.52-1.04) mg/dL Est GFR (CKD-EPI)AfAm 46 (>60 ml/min/1.73 sqM) Est GFR (CKD-EPI)NonAf 40 (>60 ml/min/1.73 sqM) Glucose 101 H (74-99) mg/dL Plasma Lactic Acid Jonah 0.7 (0.7-2.0) mmol/L Calcium 8.3 L (8.4-10.2) mg/dL Total Bilirubin 0.3 (0.2-1.3) mg/dL AST 18 (14-36) U/L ALT 14 (4-34) U/L Alkaline Phosphatase 242 H (38-126) U/L Total Protein 6.4 (6.3-8.2) g/dL Albumin 3.4 L (3.5-5.0) g/dL Coronavirus (PCR) (Not Detectd) Influenza Type A RNA (Not Detectd) Influenza Type B (PCR) (Not Detectd) 06/06/22 06/06/22 Range/Units 07:09 07:09 WBC (3.8-10.6) k/uL RBC (3.80-5.40) m/uL Hgb (11.4-16.0) gm/dL Hct (34.0-46.0) % MCV (80.0-100.0) fL MCH (25.0-35.0) pg MCHC (31.0-37.0) g/dL RDW (11.5-15.5) % Plt Count (150-450) k/uL MPV Neutrophils % % Lymphocytes % % Monocytes % % Eosinophils % % Basophils % % Neutrophils # (1.3-7.7) k/uL Lymphocytes # (1.0-4.8) k/uL Monocytes # (0-1.0) k/uL Eosinophils # (0-0.7) k/uL Basophils # (0-0.2) k/uL Hypochromasia Anisocytosis Sodium (137-145) mmol/L Potassium (3.5-5.1) mmol/L Chloride (98-107) mmol/L Carbon Dioxide (22-30) mmol/L Anion Gap mmol/L BUN (7-17) mg/dL Creatinine (0.52-1.04) mg/dL Est GFR (CKD-EPI)AfAm (>60 ml/min/1.73 sqM) Est GFR (CKD-EPI)NonAf (>60 ml/min/1.73 sqM) Glucose (74-99) mg/dL Plasma Lactic Acid Jonah (0.7-2.0) mmol/L Calcium (8.4-10.2) mg/dL Total Bilirubin (0.2-1.3) mg/dL AST (14-36) U/L ALT (4-34) U/L Alkaline Phosphatase (38-126) U/L Total Protein (6.3-8.2) g/dL Albumin (3.5-5.0) g/dL Coronavirus (PCR) Not Detected (Not Detectd) Influenza Type A RNA Not Detected (Not Detectd) Influenza Type B (PCR) Not Detected (Not Detectd) Disposition Clinical Impression: Pneumonia Disposition: ADMITTED IP TO THIS HOSP Condition: Fair Referrals: Ale Eli MD [Primary Care Provider] - 1-2 days Time of Disposition: 07:53
[2021-09-23] MEDS ORDERED: ALBUTEROL NEBULIZED 2.5 MG/3 ML INHALATION PRN (08:15)
[2021-09-23] MEDS ORDERED: FUROSEMIDE 20 MG TAB PO PRN (08:15)
[2021-09-23] MEDS ORDERED: BUTALB/APAP/CAFF 50-325-40MG TAB PO SCH (08:15)
[2021-09-23] MEDS: buPROPion XL 300 MG TAB.ER.24H PO SCH (09:00)
[2021-09-23] MEDS: buPROPion XL 150 MG TAB.ER.24H PO SCH (09:00)
[2021-09-23] MEDS: busPIRone HCl 10 MG TAB PO SCH ×2 (09:01→20:13)
[2021-09-23] MEDS: METHADONE 10 MG TAB PO SCH ×2 (09:01→20:13)
[2021-09-23] MEDS: SODIUM BICARBONATE TAB 650 MG TAB PO SCH (09:02)
[2021-09-23] MEDS: PANTOPRAZOLE 40 MG TABLET PO SCH (09:02)
[2021-09-23] MEDS: hydrOXYzine pamoate 25 MG CAP PO SCH ×3 (09:06→21:17)
[2021-09-23] MEDS: FERROUS SULFATE 325 MG TAB PO SCH (11:36)
[2021-09-23] MEDS: ONDANSETRON 4 MG TAB PO PRN (12:13)
[2021-09-23] MEDS: BUTALB/APAP/CAFF 50-325-40MG TAB PO PRN ×2 (14:36→21:18)
[2021-09-23] MEDS: PIPERACILLIN-TAZOBACTAM 3.375 GM in SODIUM CHLORIDE 0.9% 100 ML IVPB SCH ×2 (15:39→23:26)
[2021-09-23] MEDS ORDERED: polyethylene glycoL 3350 17 GM POWD.PACK PO PRN (17:18)
[2021-09-23] MEDS: SYMBICORT 160-4.5 MCG INHALER INHALATION SCH (19:50)
--- NOTE | 2021-09-23 23:00 | P.CONS ---
History of Present Illness - Reason for Consult Consult date: 09/23/21 - History of Present Illness Patient is a 76-year female with a past medical history significant for gastrectomy history of recurrent aspiration pneumonia chronic kidney disease and this patient was recently admitted at this facility and was treated for possible aspiration pneumonia, patient was treated with Zosyn did have a clinical improvement and was subsequent discharged home to finish a 2-week course of therapy, patient was also evaluated by general surgery on last admission and the patient was advised to follow-up with [facility] general surgery for placement of a PEG tube however the patient has not done that, patient mention she has completed her IV Zosyn about 4 days ago and started noticing having increasing shortness of breath since yesterday the patient complaining of cough with some greenish sputum production and some pleuritic chest pain denies any nausea no vomiting and no diarrhea patient on presentation to the hospital was afebrile no fever have been recorded subsequently patient did have a normal white count with no left shift creatinine mildly elevated liver exams are normal colon and influenza PCR was negative patient did have a chest x-ray pneumonia consolidation and will increase control exam patient was admitted to hospital started on Zosyn infectious disease was consulted for further management of antibiotic therapy Past Medical History Past Medical History: Asthma, COPD, CVA/TIA, GERD/Reflux, Memory Impairment, Osteoarthritis (OA), Pneumonia, Renal Disease, Respiratory Disorder, Thyroid Disorder Additional Past Medical History / Comment(s): Aspiration, pneumonias, covid pneumonia, protein calorie malnutrition, pt was on TPN with PICC line managed thru [facility], chronic anemia, gastric ulcers/PUD, pancreatitis, bowel obstruction/surgery, constipation, CKD stage IV, TIA, chronic migraines, chronic back/cervical pain/spinal stenosis, hypothyroid, hyponatremia. History of Any Multi-Drug Resistant Organisms: Other MDRO Past Surgical History: Back Surgery, Bowel Resection, Hysterectomy, Joint Replacement Additional Past Surgical History / Comment(s): LOWER BACK SURGERY lamenectomy/discetomy then had a revison of that sx. 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, nasal sx d/t broken nose, colonoscopy/egd, PAIN CLINIC PROCEDURES, PORT A CATH INSERTION, LT ADEOLA Past Anesthesia/Blood Transfusion Reactions: No Reported Reaction Additional Past Anesthesia/Blood Transfusion Reaction / Comm: PT RECEIVED BLOOD TRANSFUSIONS AFTER STOMACH SURGERY Past Psychological History: Anxiety, Depression, Panic Disorder Smoking Status: Never smoker Past Alcohol Use History: None Reported Past Drug Use History: None Reported - Past Family History Father Family Medical History: Cancer, Coronary Artery Disease (CAD) Additional Family Medical History / Comment(s): FATHER HAD BLADDER AND KIDNEY CANCER. FATHER HAD TB WHEN HE WAS A CHILD .FATHER AT AGE 87. Mother Family Medical History: Cancer Additional Family Medical History / Comment(s): MOTHER AT AGE 58 OF OVARIAN CANCER. Medications and Allergies Home Medications Medication Instructions Recorded Confirmed Type Ferrous Sulfate [Iron (65 MG 325 mg PO DAILY@1200 11/06/15 09/23/21 History Elemental)] calcitrioL [Calcitriol] 1 mcg PO MOWEFR 06/07/19 09/23/21 History busPIRone HCL [Buspar] 30 mg PO BID 04/14/20 09/23/21 History Butalb/APAP/Caff 50-325-40Mg 1 tab PO Q6H 06/30/20 09/23/21 History [Fioricet 50-325-40] buPROPion XL [Wellbutrin XL] 150 mg PO DAILY 11/04/20 09/23/21 History buPROPion XL [Wellbutrin XL] 300 mg PO DAILY 02/20/21 09/23/21 History Albuterol Sulfate [Albuterol 2 puff INHALATION RT-Q6H PRN 04/07/21 09/23/21 History Sulfate Hfa] Budesonide/Formoterol Fumarate 2 puff INHALATION RT-BID 04/07/21 09/23/21 His tory [Symbicort 160-4.5 Mcg Inhaler] Aspirin EC [Ecotrin Low Dose] 81 mg PO DAILY 05/12/21 09/23/21 History Levothyroxine Sodium [Synthroid] 100 mcg PO DAILY@0630 30 Days #30 06/19/21 09/23/21 Rx tab Furosemide [Lasix] 20 mg PO DAILY PRN 08/08/21 09/23/21 History Omeprazole 20 mg PO DAILY 08/08/21 09/23/21 History hydrOXYzine pamoate [Vistaril] 100 mg PO TID 08/08/21 09/23/21 History polyethylene glycoL 3350 [Miralax] 17 gm PO DAILY PRN 08/08/21 09/23/21 History Sodium Bicarbonate Tab 650 mg PO DAILY 30 Days #30 tab 08/21/21 09/23/21 Rx Mirtazapine [Remeron] 45 mg PO HS 09/01/21 09/23/21 History Naloxone HCl [Narcan] 4 mg NASAL ONCE PRN 09/01/21 09/23/21 History Ondansetron [Zofran] 4 mg PO Q6H PRN 09/01/21 09/23/21 History Methadone [Dolophine] 20 mg PO BID tab 09/10/21 09/23/21 Rx Allergies Allergy/AdvReac Type Severity Reaction Status Date / Time mold Allergy Itching Verified 09/23/21 08:25 denosumab [From Prolia] AdvReac SEVERE Verified 09/23/21 08:25 CALCIUM LOSS morphine AdvReac Confusion Verified 09/23/21 08:25 DUST Allergy Itching Uncoded 09/23/21 08:25 Physical Exam Vitals: Vital Signs Temp Pulse Resp BP Pulse Ox 09/23/21 05:50 97.8 F 82 18 141/88 99 Intake and Output 09/22/21 09/23/21 09/23/21 22:59 06:59 14:59 Other: Weight 39.463 kg Results CBC & Chem 7: 09/23/21 07:09 09/23/21 07:09 Labs: Abnormal Lab Results - Last 24 Hours (Table) 09/23/21 09/23/21 Range/Units 07:09 07:09 RBC 3.72 L (3.80-5.40) m/uL Hgb 10.2 L (11.4-16.0) gm/dL MCHC 29.7 L (31.0-37.0) g/dL RDW 17.5 H (11.5-15.5) % Plt Count 470 H (150-450) k/uL Chloride 110 H (98-107) mmol/L Creatinine 1.31 H (0.52-1.04) mg/dL Glucose 101 H (74-99) mg/dL Calcium 8.3 L (8.4-10.2) mg/dL Alkaline Phosphatase 242 H (38-126) U/L Albumin 3.4 L (3.5-5.0) g/dL Assessment and Plan Plan: 1patient presented to hospital with increasing shortness of breath and cough with some greenish sputum in this patient did have a chest x-ray suggestive of pneumonia consolidation however the patient did not have any fever she did have normal white count and no hypoxemia satting 98% with all the clinical findings Velcro-based pneumonia however x-ray findings cannot be disregarded and a question of possible recurrent aspiration pneumonia with the patient noncompliant with her diet, she was supposed to follow-up with the [facility] general surgical team for placement of the PEG tube which has not been done. 2we will obtain a sputum for gram stain and culture. 3check a CRP and procalcitonin. 4May continue Zosyn. We will follow on clinical condition and cultures to further adjust medication if needed Thank you for this consultation will follow this patient along with you Time with Patient: Greater than 30
[2021-09-23] MEDS: MIRTAZAPINE 45 MG TABLET PO SCH (23:26)
[2021-09-24] MEDS: LEVOTHYROXINE 100 MCG TAB PO SCH (05:38)
[2021-09-24] MEDS: BUTALB/APAP/CAFF 50-325-40MG TAB PO PRN ×3 (05:39→17:51)
--- NOTE | 2021-09-24 07:41 | XR ---
EXAMINATION TYPE: XR chest 2V DATE OF EXAM: 09/24/2021 COMPARISON: 09/23/2021 TECHNIQUE: PA and lateral views submitted. HISTORY: Cough FINDINGS: There are bilateral areas of multifocal infiltrate and consolidation. PICC line noted. Biapical pleur al thickening. Tiny left pleural effusion with underlying COPD suspected. Degenerative changes spine. IMPRESSION: 1. Multifocal bilateral areas of consolidation in the basis of pneumonia or neoplastic process.
[2021-09-24] MEDS: SYMBICORT 160-4.5 MCG INHALER INHALATION SCH ×2 (07:58→19:01)
[2021-09-24] MEDS: buPROPion XL 300 MG TAB.ER.24H PO SCH (08:44)
[2021-09-24] MEDS: busPIRone HCl 10 MG TAB PO SCH ×2 (08:44→20:39)
[2021-09-24] MEDS: PANTOPRAZOLE 40 MG TABLET PO SCH (08:44)
[2021-09-24] MEDS: ENOXAPARIN 30 MG/0.3 ML SYRINGE SQ SCH (08:44)
[2021-09-24] MEDS: ASPIRIN 81 MG PO SCH (08:44)
[2021-09-24] MEDS: PIPERACILLIN-TAZOBACTAM 3.375 GM in SODIUM CHLORIDE 0.9% 100 ML IVPB SCH ×3 (08:44→23:49)
[2021-09-24] MEDS: buPROPion XL 150 MG TAB.ER.24H PO SCH (08:44)
[2021-09-24] MEDS: FERROUS SULFATE 325 MG TAB PO SCH (08:45)
[2021-09-24] MEDS: SODIUM BICARBONATE TAB 650 MG TAB PO SCH (08:45)
[2021-09-24] MEDS: METHADONE 10 MG TAB PO SCH ×2 (08:45→20:39)
[2021-09-24] MEDS: hydrOXYzine pamoate 25 MG CAP PO SCH ×3 (08:46→22:12)
[2021-09-24 09:14] LABS: Basophils # (A) 0.09 X 10*3/uL (0.00-0.10); Basophils % (A) 0.9 %; Eosinophils # (A) 0.66 X 10*3/uL (0.04-0.35); Eosinophils % (A) 6.4 %; HCT 30.7 % (37.2-46.3); HGB 9.6 g/dL (12.0-15.0); Immature Grans, Automated 0.5 %; Lymphocytes # (A) 1.79 X 10*3/uL (0.90-5.00); Lymphocytes % (A) 17.3 %; MCH 27.6 pg (27.0-32.0); MCHC 31.3 g/dL (32.0-37.0); MCV 88.2 fL (80.0-97.0); Mean Platelet Volume 9.2 fL (9.5-12.2); Monocytes # (A) 0.89 X 10*3/uL (0.20-1.00); Monocytes % (A) 8.6 %; NRBC Per 100 WBC 0 /100 WBCS (0.0-0.0); Neutrophils # (A) 6.87 X 10*3/uL (1.80-7.70); Neutrophils % (A) 66.3 %; Platelet Count 413 X 10*3/uL (140-440); RBC 3.48 X 10*6/uL (4.10-5.20); WBC 10.35 X 10*3/uL (4.50-10.00)
[2021-09-24 09:30] LABS: ALT 13 U/L (8-44); AST 17 U/L (13-35); African American GFR (CKD) 46.8 (60.0-200.0); Albumin 3.2 g/dL (3.8-4.9); Albumin/Globulin Ratio 1.23 (1.60-3.17); Alkaline Phosphatase 219 U/L (41-126); BUN/Creat Ratio 12.62 Ratio (12.00-20.00); Blood Urea Nitrogen 16.4 mg/dL (9.0-27.0); Calcium 8.6 mg/dL (8.7-10.3); Carbon Dioxide 20.9 mmol/L (20.0-27.5); Chloride 108 mmol/L (96-109); Globulin 2.6 g/dL (1.6-3.3); Glucose 89 mg/dL (70-110); Non-African American GFR(CKD) 40.4 (60.0-200.0); Sodium 141 mmol/L (135-145); Total Bilirubin <0.15 mg/dL (0.30-1.20); Total Protein 5.8 g/dL (6.2-8.2)
--- NOTE | 2021-09-24 10:14 | P.HPIM ---
History of Present Illness H&P Date: 09/23/21 Louise Sutton, is a 76-year-old female who presented to [facility] emergency room with a chief complaint of worsening cough and chest congestion She was evaluated in the emergency room vital examination on presentation revealed a temperature of 97.8 pulse 82 respiration 18 blood pressure 141/88 pulse ox 99% on room air Laboratory data revealed a white blood count of 10.2 hemoglobin 10.2 platelet count 470 sodium 142 potassium 3.7 chloride 110 CO2 22 BUN 17 creatinine 1.31 glucose level 101 COVID-19 PCR was negative influenza A and B testing were negative Testing in the emergency room revealed chest x-ray done in the emergency room revealed evidence of pneumonic consolidations with patchy air space consolidation in the mid lung calixto that are worse than previous x-ray Patient was admitted to medical floor for further evaluation and treatment Past Medical History Past Medical History: Asthma, COPD, CVA/TIA, GERD/Reflux, Memory Impairment, Osteoarthritis (OA), Pneumonia, Renal Disease, Respiratory Disorder, Thyroid Disorder Additional Past Medical History / Comment(s): Aspiration, pneumonias, co vid pneumonia, protein calorie malnutrition, pt was on TPN with PICC line managed thru [facility], chronic anemia, gastric ulcers/PUD, pancreatitis, bowel obstruction/surgery, constipation, CKD stage IV, TIA, chronic migraines, chronic back/cervical pain/spinal stenosis, hypothyroid, hyponatremia. History of Any Multi-Drug Resistant Organisms: Other MDRO Past Surgical History: Back Surgery, Bowel Resection, Hysterectomy, Joint Replacement Additional Past Surgical History / Comment(s): LOWER BACK SURGERY lamenectomy/discetomy then had a revison of that sx. 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, nasal sx d/t broken nose, colonoscopy/egd, PAIN CLINIC PROCEDURES, PORT A CATH INSERTION, LT ADEOLA Past Anesthesia/Blood Transfusion Reactions: No Reported Reaction Additional Past Anesthesia/Blood Transfusion Reaction / Comment(s): PT RECEIVED BLOOD TRANSFUSIONS AFTER STOMACH SURGERY Past Psychological History: Anxiety, Depression, Panic Disorder Smoking Status: Never smoker Past Alcohol Use History: None Reported Past Drug Use History: None Reported - Past Family History Father Family Medical History: Cancer, Coronary Artery Disease (CAD) Additional Family Medical History / Comment(s): FATHER HAD BLADDER AND KIDNEY CANCER. FATHER HAD TB WHEN HE WAS A CHILD .FATHER AT AGE 87. Mother Family Medical History: Cancer Additional Family Medical History / Comment(s): MOTHER AT AGE 58 OF OVARIAN CANCER. Medications and Allergies Home Medications Medication Instructions Recorded Confirmed Type Ferrous Sulfate [Iron (65 MG 325 mg PO DAILY@1200 11/06/15 09/23/21 History Elemental)] calcitrioL [Calcitriol] 1 mcg PO MOWEFR 06/07/19 09/23/21 History busPIRone HCL [Buspar] 30 mg PO BID 04/14/20 09/23/21 History Butalb/APAP/Caff 50-325-40Mg 1 tab PO Q6H 06/30/20 09/23/21 History [Fioricet 50-325-40] buPROPion XL [Wellbutrin XL] 150 mg PO DAILY 11/04/20 09/23/21 History buPROPion XL [Wellbutrin XL] 300 mg PO DAILY 02/20/21 09/23/21 History Albuterol Sulfate [Albuterol 2 puff INHALATION RT-Q6H PRN 04/07/21 09/23/21 History Sulfate Hfa] Budesonide/Formoterol Fumarate 2 puff INHALATION RT-BID 04/07/21 09/23/21 History [Symbicort 160-4.5 Mcg Inhaler] Aspirin EC [Ecotrin Low Dose] 81 mg PO DAILY 05/12/21 09/23/21 History Levothyroxine Sodium [Synthroid] 100 mcg PO DAILY@0630 30 Days #30 06/19/21 09/23/21 Rx tab Furosemide [Lasix] 20 mg PO DAILY PRN 08/08/21 09/23/21 History Omeprazole 20 mg PO DAILY 08/08/21 09/23/21 History hydrOXYzine pamoate [Vistaril] 100 mg PO TID 08/08/21 09/23/21 History polyethylene glycoL 3350 [Miralax] 17 gm PO DAILY PRN 08/08/21 09/23/21 History Sodium Bicarbonate Tab 650 mg PO DAILY 30 Days #30 tab 08/21/21 09/23/21 Rx Mirtazapine [Remeron] 45 mg PO HS 09/01/21 09/23/21 History Naloxone HCl [Narcan] 4 mg NASAL ONCE PRN 09/01/21 09/23/21 History Ondansetron [Zofran] 4 mg PO Q6H PRN 09/01/21 09/23/21 History Methadone [Dolophine] 20 mg PO BID tab 09/10/21 09/23/21 Rx Allergies Allergy/AdvReac Type Severity Reaction Status Date / Time mold Allergy Itching Verified 09/23/21 08:25 denosumab [From Prolia] AdvReac SEVERE Verified 09/23/21 08:25 CALCIUM LOSS morphine AdvReac Confusion Verified 09/23/21 08:25 DUST Allergy Itching Uncoded 09/23/21 08:25 Physical Exam Vitals: Vital Signs Temp Pulse Resp BP Pulse Ox 09/23/21 14:40 98.4 F 82 20 163/99 98 09/23/21 11:24 82 16 172/90 99 09/23/21 05:50 97.8 F 82 18 141/88 99 Intake and Output 09/23/21 09/23/21 09/23/21 06:59 14:59 22:59 Other: Weight 39.463 kg In general patient is alert and oriented x 3 in no distress HEENT head normocephalic and atraumatic Neck is supple no JVD no goiter no lymphadenopathy no carotid bruit Chest examination reveals a scattered crackles crackles no wheezing Cardiac exam reveals regular heart sounds S1 and S2 no gallops no murmurs Abdomen is soft nontender no organomegaly with normal bowel sounds Extremity exam reveals no edema no cyanosis or clubbing Neurological examination reveals no gross focal deficits Results CBC & Chem 7: 09/23/21 07:09 09/23/21 07:09 Labs: Abnormal Lab Results - Last 24 Hours (Table) 09/23/21 09/23/21 Range/Units 07:09 07:09 RBC 3.72 L (3.80-5.40) m/uL Hgb 10.2 L (11.4-16.0) gm/dL MCHC 29.7 L (31.0-37.0) g/dL RDW 17.5 H (11.5-15.5) % Plt Count 470 H (150-450) k/uL Chloride 110 H (98-107) mmol/L Creatinine 1.31 H (0.52-1.04) mg/dL Glucose 101 H (74-99) mg/dL Calcium 8.3 L (8.4-10.2) mg/dL Alkaline Phosphatase 242 H (38-126) U/L Albumin 3.4 L (3.5-5.0) g/dL Assessment and Plan Plan: Bilateral pneumonia, at this time patient was started on IV Zosyn in the emergency room, will continue with the same, blood culture and sputum culture ordered, infectious disease consultation was requested. 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 For DVT prophylaxis acute Lovenox Consult nutrition for continuation of TPN Small amounts of pured diet for pleasure eating Prognosis is guarded
[2021-09-24] MEDS: ONDANSETRON 4 MG TAB PO PRN (15:01)
--- NOTE | 2021-09-24 15:08 | P.CNPUL ---
History of Present Illness Consult date: 09/24/21 Requesting physician: Palmer Desir Chief complaint: Bilateral rib pain History of present illness: This is a 76-year-old white female patient who is well-known to our service from multiple hospitalizations for recurrent aspiration pneumonia. Patient had a history of previous gastrectomy, chronic dysphagia, recurrent aspiration pneumonia, chronic malnutrition and failure to thrive, patient is maintained on TPN in addition to a soft diet by mouth. Patient also has history of chronic kidney disease stage III, hypothyroidism, migraine headaches, chronic pain syndrome, history of CVA, and history of PICC line infection and sepsis. Patient was recently hospitalized for recurrence of aspiration related pneumonia, falls at home following methadone dose increase, and acute on chronic kidney injury. Patient had persistent bilateral midlung opacities, patient had a PICC line inserted and prior hospitalizations for TPN infusion, and completed a course of IV Zosyn. Patient was referred to general surgery for possibility of jejunostomy tube insertion, however patient had previous gastrectomy at the [facility], and she was advised to follow-up with the [facility] on an outpatient basis. At this time she continues to eat by mouth, soft foods in the form of applesauce, and pudding in addition to TPN. She was discharged home on 09/10/2021 to complete a course of IV Zosyn. Patient states she completed her Zosyn 4 days ago, however she states that she continued to be congested, cough, and have intermittent chills and bilateral rib cage pain with coughing and moving. Denied any fever, but does admit to intermittent chills. She came into the emergency department for reevaluation on 09/23/2021. Chest x- ray shows multifocal bilateral areas of consolidation. Admission blood work shows normal white count of 10.2, hemoglobin of 10.2, sodium is 142, potassium is 3.7, chloride is 110, BUN of 17, creatinine is 1.31. Pro-calcitonin level was checked and is negative at 0.08, COVID-19 PCR and influenza A and B were both negative. Patient has been afebrile. She states she is coughing up some right greenish phlegm, no hemoptysis. Appears to be breathing fairly comfortably, does not appear to be in any acute distress. She was restarted on Zosyn, blood cultures and sputum cultures have been sent. ID service has been consulted Review of Systems All systems: negative Constitutional: Denies chills, Denies fever Eyes: denies blurred vision, denies pain Ears, nose, mouth and throat: Denies headache, Denies sore throat Cardiovascular: Denies chest pain, Denies shortness of breath Respiratory: Reports cough, Reports cough with sputum, Reports dyspnea Gastrointestinal: Denies abdominal pain, Denies diarrhea, Denies nausea, Denies vomiting Genitourinary: Denies dysuria, Denies hematuria Musculoskeletal: Denies myalgias Integumentary: Denies pruritus, Denies rash Neurological: Denies numbness, Denies weakness Psychiatric: Denies anxiety, Denies depression Endocrine: Denies fatigue, Denies weight change Past Medical History Past Medical History: Asthma, COPD, CVA/TIA, GERD/Reflux, Memory Impairment, Osteoarthritis (OA), Pneumonia, Renal Disease, Respiratory Disorder, Thyroid Disorder Additional Past Medical History / Comment(s): Aspiration, pneumonias, 1.2021 c ovid pneumonia, protein calorie malnutrition, pt was on TPN with PICC line managed thru [facility], chronic anemia, gastric ulcers/PUD, pancreatitis, bowel obstruction/surgery, constipation, CKD stage IV, TIA, chronic migraines, chronic back/cervical pain/spinal stenosis, hypothyroid, hyponatremia. History of Any Multi-Drug Resistant Organisms: Other MDRO Date of last positivie culture/infection: 2021 MDRO Source:: urine Past Surgical History: Back Surgery, Bowel Resection, Hysterectomy, Joint Repl acement Additional Past Surgical History / Comment(s): LOWER BACK SURGERY lamenectomy/discetomy then had a revison of that sx. 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, nasal sx d/t broken nose, colonoscopy/egd, PAIN CLINIC PROCEDURES, PORT A CATH INSERTION, LT [facility] Past Anesthesia/Blood Transfusion Reactions: No Reported Reaction Additional Past Anesthesia/Blood Transfusion Reaction / Comment(s): PT RECEIVED BLOOD TRANSFUSIONS AFTER STOMACH SURGERY Past Psychological History: Anxiety, Depression, Panic Disorder Smoking Status: Never smoker Past Alcohol Use History: None Reported Past Drug Use History: None Reported - Past Family History Father Family Medical History: Cancer, Coronary Artery Disease (CAD) Additional Family Medical History / Comment(s): FATHER HAD BLADDER AND KIDNEY CANCER. FATHER HAD TB WHEN HE WAS A CHILD .FATHER AT AGE 87. Mother Family Medical History: Cancer Additional Family Medical History / Comment(s): MOTHER AT AGE 58 OF OVARIAN CANCER. Medications and Allergies Home Medications Medication Instructions Recorded Confirmed Type Ferrous Sulfate [Iron (65 MG 325 mg PO DAILY@1200 11/06/15 09/23/21 History Elemental)] calcitrioL [Calcitriol] 1 mcg PO MOWEFR 06/07/19 09/23/21 History busPIRone HCL [Buspar] 30 mg PO BID 04/14/20 09/23/21 History Butalb/APAP/Caff 50-325-40Mg 1 tab PO Q6H 06/30/20 09/23/21 History [Fioricet 50-325-40] buPROPion XL [Wellbutrin XL] 150 mg PO DAILY 11/04/20 09/23/21 History buPROPion XL [Wellbutrin XL] 300 mg PO DAILY 02/20/21 09/23/21 History Albuterol Sulfate [Albuterol 2 puff INHALATION RT-Q6H PRN 04/07/21 09/23/21 History Sulfate Hfa] Budesonide/Formoterol Fumarate 2 puff INHALATION RT-BID 04/07/21 09/23/21 History [Symbicort 160-4.5 Mcg Inhaler] Aspirin EC [Ecotrin Low Dose] 81 mg PO DAILY 05/12/21 09/23/21 History Levothyroxine Sodium [Synthroid] 100 mcg PO DAILY@0630 30 Days #30 06/19/21 09/23/21 Rx tab Furosemide [Lasix] 20 mg PO DAILY PRN 08/08/21 09/23/21 History Omeprazole 20 mg PO DAILY 08/08/21 09/23/21 History hydrOXYzine pamoate [Vistaril] 100 mg PO TID 08/08/21 09/23/21 History polyethylene glycoL 3350 [Miralax] 17 gm PO DAILY PRN 08/08/21 09/23/21 History Sodium Bicarbonate Tab 650 mg PO DAILY 30 Days #30 tab 08/21/21 09/23/21 Rx Mirtazapine [Remeron] 45 mg PO HS 09/01/21 09/23/21 History Naloxone HCl [Narcan] 4 mg NASAL ONCE PRN 09/01/21 09/23/21 History Ondansetron [Zofran] 4 mg PO Q6H PRN 09/01/21 09/23/21 History Methadone [Dolophine] 20 mg PO BID tab 09/10/21 09/23/21 Rx Allergies Allergy/AdvReac Type Severity Reaction Status Date / Time mold Allergy Itching Verified 09/23/21 08:25 denosumab [From Prolia] AdvReac SEVERE Verified 09/23/21 08:25 CALCIUM LOSS morphine AdvReac Confusion Verified 09/23/21 08:25 DUST Allergy Itching Uncoded 09/23/21 08:25 Physical Exam Vitals: Vital Signs Temp Pulse Pulse Resp BP BP Pulse Ox 09/24/21 13:10 97.7 F 76 15 133/73 99 09/24/21 03:48 98.1 F 100 18 165/83 97 09/24/21 00:47 16 09/23/21 23:45 98.6 F 99 18 141/106 96 09/23/21 20:15 90 14 128/74 98 09/23/21 18:07 98.4 F 83 18 127/96 98 Intake and Output 09/23/21 09/24/21 09/24/21 22:59 06:59 14:59 Intake Total 110 118 Balance 110 118 Intake: IV 10 Invasive Line 1 10 Intake, IV Titration 100 Amount Piperacillin-Tazobactam 3 100 .375 gm In Sodium Chloride 0.9% 100 ml @ 200 mls/hr IVPB ONCE STA Rx#:[id number] Oral 118 Other: Voiding Method Toilet Bedside Commode # Voids 1 1 # Bowel Movements 1 Weight 39.463 kg GENERAL EXAM: Alert, very pleasant, 76-year-old white female, cachectic, on room air pulse ox of 98% but appears to be in no acute distress, on room air comfortable in no apparent distress. HEAD: Normocephalic/atraumatic. EYES: Normal reaction of pupils, equal size. Conjunctiva pink, sclera white. NOSE: Clear with pink turbinates. THROAT: No erythema or exudates. NECK: No masses, no JVD, no thyroid enlargement, no adenopathy. CHEST: No chest wall deformity. Symmetrical expansion. LUNGS: Equal air entry with no crackles, wheeze, rhonchi or dullness. CVS: Regular rate and rhythm, normal S1 and S2, no gallops, no murmurs, no rubs ABDOMEN: Soft, nontender. No hepatosplenomegaly, normal bowel sounds, no guarding or rigidity. EXTREMITIES: No clubbing, no edema, no cyanosis, 2+ pulses and upper and lower extremities. MUSCULOSKELETAL: Muscle strength and tone normal. SPINE: No scoliosis or deformity SKIN: No rashes CENTRAL NERVOUS SYSTEM: Alert and oriented -3. No focal deficits, tone is normal in all 4 extremities. PSYCHIATRIC: Alert and oriented -3. Appropriate affect. Intact judgment and insight. Results - Laboratory Findings CBC and BMP: 09/24/21 06:19 09/25/21 06:12 Abnormal lab findings: Abnormal Labs 09/23/21 09/23/21 09/24/21 07:09 07:09 06:19 WBC RBC 3.72 L Hgb 10.2 L Hct MCHC 29.7 L RDW 17.5 H Plt Count 470 H MPV Immature Gran # Eosinophils # Chloride 110 H Creatinine 1.31 H Est GFR (CKD-EPI)AfAm 46.8 L Est GFR (CKD-EPI)NonAf 40.4 L Glucose 101 H Calcium 8.3 L 8.6 L Total Bilirubin <0.15 L Alkaline Phosphatase 242 H 219 H C-Reactive Protein 2.70 H Total Protein 5.8 L Albumin 3.4 L 3.2 L Albumin/Globulin Ratio 1.23 L 09/24/21 06:19 WBC 10.35 H RBC 3.48 L Hgb 9.6 L Hct 30.7 L MCHC 31.3 L RDW 18.0 H Plt Count MPV 9.2 L Immature Gran # 0.05 H Eosinophils # 0.66 H Chloride Creatinine Est GFR (CKD-EPI)AfAm Est GFR (CKD-EPI)NonAf Glucose Calcium Total Bilirubin Alkaline Phosphatase C-Reactive Protein Total Protein Albumin Albumin/Globulin Ratio - Diagnostic Findings Chest x-ray: report reviewed, image reviewed Assessment and Plan Plan: #1. Bilateral rib pain, cough related to recurrent aspiration, patient is recovering from recent aspiration related pneumonia. COVID-19 PCR, influenza A and B were negative. Patient has completed a course of IV Zosyn. Chest x-ray showed multifocal bilateral areas of consolidation. Pro-calcitonin level is negative at 0.08 #2. Chronic pain syndrome, most recently on methadone for pain control #3. Chronic kidney disease stage III at baseline #4. Malnutrition and failure to thrive #5. Recurrent aspiration with multiple hospitalizations, patient is currently on TPN for nutritional support in addition to some oral feedings on soft diet #6. History of gastrectomy #7. Recent hospitalization for urinary tract infection, related to enterococcus faecalis #8. Chronic pain syndrome #9. Previous history of CVA #10. History of hypothyroidism #11. History of spinal stenosis and chronic back pain #12. History of chronic anemia of chronic disease #13. Anxiety/depression Plan: Continue current antibiotics Blood cultures have been sent and pending, We'll try to obtain sputum culture Clinically patient does not appear to be in any acute distress Vital signs are stable Chest x-ray showing persistent bilateral areas of consolidation with possibility of recurrent pneumonia We'll continue to follow I have personally seen and examined the patient, performed the documentation and the assessment and plan as written. Number of minutes spent on the visit: [15] I have personally seen and examined the patient and reviewed the documentation. I performed a joint evaluation with the nurse practitioner in this evaluation was done more than 30 minutes. I fully agree with the documentation above and the plan of care. Reviewed the chest x-ray. Reviewed the labs. The patient is on IV Zosyn. Continue TPN. The sputum Gram stain and culture. Obtain blood cultures. We'll follow. Time with Patient: Greater than 30
[2021-09-24 16:05] VITALS: BMI 15.9
[2021-09-24 17:31] LABS: Magnesium 1.9 mg/dL (1.6-2.3); Phosphorus 2.5 mg/dL (2.5-4.5)
--- NOTE | 2021-09-24 18:00 | P.PN ---
Subjective Progress Note Date: 09/24/21 Louise Sutton, is a 76-year-old female who presented to [facility] emergency room with a chief complaint of worsening cough and chest congestion She was evaluated in the emergency room vital examination on presentation revealed a temperature of 97.8 pulse 82 respiration 18 blood pressure 141/88 pulse ox 99% on room air Laboratory data revealed a white blood count of 10.2 hemoglobin 10.2 platelet count 470 sodium 142 potassium 3.7 chloride 110 CO2 22 BUN 17 creatinine 1.31 glucose level 101 COVID-19 PCR was negative influenza A and B testing were negative Testing in the emergency room revealed chest x-ray done in the emergency room revealed evidence of pneumonic consolidations with patchy air space consolidation in the mid lung calixto that are worse than previous x-ray Patient was admitted to medical floor for further evaluation and treatment On 09/24/2021 patient was seen and examined on the medical floor she is alert and oriented 3 in no apparent distress she is complaining of cough for and complaining of pain in the middle of her back radiating to lower ribs area otherwise she denies any complaints there is no fever or chills no headache or dizziness no chest pain no nausea or vomiting no abdominal pain no diarrhea and no urinary symptoms Objective - Vital Signs Vital signs: Vital Signs Temp 98.1 F 09/24/21 03:48 Pulse 100 09/24/21 03:48 Resp 18 09/24/21 03:48 BP 165/83 09/24/21 03:48 Pulse Ox 97 09/24/21 03:48 FiO2 Intake & Output 09/23/21 09/24/21 09/24/21 18:59 06:59 18:59 Intake Total 110 Balance 110 Weight 39.463 kg Intake: IV 10 Invasive Line 1 10 Intake, IV Titration 100 Amount Piperacillin-Tazobactam 3 100 .375 gm In Sodium Chloride 0.9% 100 ml @ 200 mls/hr IVPB ONCE STA Rx#:[id number] Other: Voiding Method Toilet Bedside Commode # Voids 1 1 # Bowel Movements 1 - Exam In general patient is alert and oriented x 3 in no distress HEENT head normocephalic and atraumatic Neck is supple no JVD no goiter no lymphadenopathy no carotid bruit Chest examination reveals a scattered crackles crackles no wheezing Cardiac exam reveals regular heart sounds S1 and S2 no gallops no murmurs Abdomen is soft nontender no organomegaly with normal bowel sounds Extremity exam reveals no edema no cyanosis or clubbing Neurological examination reveals no gross focal deficits - Labs CBC & Chem 7: 09/24/21 06:19 09/24/21 06:19 Labs: Abnormal Lab Results - Last 24 Hours (Table) 09/24/21 09/24/21 Range/Units 06:19 06:19 WBC 10.35 H (4.50-10.00) X 10*3/uL RBC 3.48 L (4.10-5.20) X 10*6/uL Hgb 9.6 L (12.0-15.0) g/dL Hct 30.7 L (37.2-46.3) % MCHC 31.3 L (32.0-37.0) g/dL RDW 18.0 H (11.5-14.5) % MPV 9.2 L (9.5-12.2) fL Immature Gran # 0.05 H (0.00-0.04) X 10*3/uL Eosinophils # 0.66 H (0.04-0.35) X 10*3/uL Est GFR (CKD-EPI)AfAm 46.8 L (60.0-200.0) Est GFR (CKD-EPI)NonAf 40.4 L (60.0-200.0) Calcium 8.6 L (8.7-10.3) mg/dL Total Bilirubin <0.15 L (0.30-1.20) mg/dL Alkaline Phosphatase 219 H (41-126) U/L C-Reactive Protein 2.70 H (0.00-0.80) mg/dL Total Protein 5.8 L (6.2-8.2) g/dL Albumin 3.2 L (3.8-4.9) g/dL Albumin/Globulin Ratio 1.23 L (1.60-3.17) g/dL Assessment and Plan Plan: Bilateral pneumonia, at this time patient was started on IV Zosyn in the emergency room, will continue with the same, blood culture and sputum culture ordered, infectious disease consultation was requested. 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 For DVT prophylaxis acute Lovenox Consult nutrition for continuation of TPN Small amounts of pured diet for pleasure eating Prognosis is guarded
[2021-09-24] MEDS ORDERED: FAT EMULSION 20% 500 ML IV SCH (18:30)
[2021-09-24] MEDS ORDERED: MVI, ADULT NO.4 WITH VIT K 10 ML, TRACE (CONC-1ML/DOSE) 1 ML in AMINO ACID 5%-D20W+LYTE... IV SCH ×3 (18:30)
[2021-09-24] MEDS: oxyCODONE-APAP 5-325MG 1 EACH TAB PO PRN (19:33)
[2021-09-24] MEDS: MIRTAZAPINE 45 MG TABLET PO SCH (22:13)
[2021-09-25] MEDS: BUTALB/APAP/CAFF 50-325-40MG TAB PO PRN ×4 (01:35→20:10)
[2021-09-25] MEDS: LEVOTHYROXINE 100 MCG TAB PO SCH (05:16)
[2021-09-25] MEDS: oxyCODONE-APAP 5-325MG 1 EACH TAB PO PRN ×4 (05:16→23:20)
[2021-09-25 07:25] LABS: African American GFR (CKD) 52 (>60 ml/min/1.73 sqM); Anion Gap 10 mmol/L; Blood Urea Nitrogen 17 mg/dL (7-17); Calcium 8.5 mg/dL (8.4-10.2); Carbon Dioxide 21 mmol/L (22-30); Chloride 108 mmol/L (98-107); Glucose 101 mg/dL (74-99); Magnesium 1.9 mg/dL (1.6-2.3); Non-African American GFR(CKD) 45 (>60 ml/min/1.73 sqM); Phosphorus 2.5 mg/dL (2.5-4.5); Sodium 139 mmol/L (137-145)
[2021-09-25] MEDS: SYMBICORT 160-4.5 MCG INHALER INHALATION SCH ×2 (07:39→19:26)
[2021-09-25] MEDS: hydrOXYzine pamoate 25 MG CAP PO SCH ×3 (08:02→21:44)
[2021-09-25] MEDS: buPROPion XL 150 MG TAB.ER.24H PO SCH (08:02)
[2021-09-25] MEDS: ASPIRIN 81 MG PO SCH (08:02)
[2021-09-25] MEDS: PANTOPRAZOLE 40 MG TABLET PO SCH (08:02)
[2021-09-25] MEDS: buPROPion XL 300 MG TAB.ER.24H PO SCH (08:02)
[2021-09-25] MEDS: PIPERACILLIN-TAZOBACTAM 3.375 GM in SODIUM CHLORIDE 0.9% 100 ML IVPB SCH ×3 (08:02→23:20)
[2021-09-25] MEDS: busPIRone HCl 10 MG TAB PO SCH ×2 (08:03→20:08)
[2021-09-25] MEDS: FERROUS SULFATE 325 MG TAB PO SCH (08:04)
[2021-09-25] MEDS: METHADONE 10 MG TAB PO SCH ×2 (08:04→20:08)
[2021-09-25] MEDS: SODIUM BICARBONATE TAB 650 MG TAB PO SCH (08:04)
[2021-09-25] MEDS: ENOXAPARIN 30 MG/0.3 ML SYRINGE SQ SCH (08:05)
[2021-09-25 08:23] LABS: Ionized Calcium 5.4 mg/dL (4.5-5.3)
--- NOTE | 2021-09-25 09:13 | XR ---
EXAMINATION TYPE: XR thoracic spine complete DATE OF EXAM: 09/25/2021 COMPARISON: None HISTORY: Pain TECHNIQUE: 3 views submitted FINDINGS: Bilateral areas of consolidation or mass with underlying COPD Central line stable. There is a curvatu re of the spine with surgical clips in the upper abdomen. Multilevel mild degenerative disc disease. No compression deformities. Remote left clavicular fracture noted. Incidental note is multilevel ante rolisthesis of cervical spine levels. IMPRESSION: 1. Scoliosis with multilevel mild degenerative disc disease. 2. Bilateral airspace disease correlate for mass versus infection and pneumonia. 3. Incidental note on the lateral view of multilevel anterolisthesis within the cervical spine.
--- NOTE | 2021-09-25 12:14 | P.PN ---
Subjective Progress Note Date: 09/25/21 Louise Sutton, is a 76-year-old female who presented to [facility] emergency room with a chief complaint of worsening cough and chest congestion She was evaluated in the emergency room vital examination on presentation revealed a temperature of 97.8 pulse 82 respiration 18 blood pressure 141/88 pulse ox 99% on room air Laboratory data revealed a white blood count of 10.2 hemoglobin 10.2 platelet count 470 sodium 142 potassium 3.7 chloride 110 CO2 22 BUN 17 creatinine 1.31 glucose level 101 COVID-19 PCR was negative influenza A and B testing were negative Testing in the emergency room revealed chest x-ray done in the emergency room revealed evidence of pneumonic consolidations with patchy air space consolidation in the mid lung calixto that are worse than previous x-ray Patient was admitted to medical floor for further evaluation and treatment On 09/24/2021 patient was seen and examined on the medical floor she is alert and oriented 3 in no apparent distress she is complaining of cough for and complaining of pain in the middle of her back radiating to lower ribs area otherwise she denies any complaints there is no fever or chills no headache or dizziness no chest pain no nausea or vomiting no abdominal pain no diarrhea and no urinary symptoms On 09/25/2021 patient is alert and oriented 3. Patient remains on IV Zosyn. Pulmonary and infectious disease services are following. Current vitals temp 98.3, heart rate 90, respiratory rate 20, blood pressure 128/70 with a pulse ox of 97% on room air Objective - Vital Signs Vital signs: Vital Signs Temp 98.0 F 09/25/21 04:56 Pulse 85 09/25/21 04:56 Resp 18 09/25/21 04:56 BP 170/82 09/25/21 04:56 Pulse Ox 98 09/25/21 04:56 FiO2 Intake & Output 09/24/21 09/25/21 09/25/21 18:59 06:59 18:59 Intake Total 440 500 Balance 440 500 Weight 39.463 kg Intake: Intake, IV Titration 100 Amount Piperacillin-Tazobactam 3 100 .375 gm In Sodium Chloride 0.9% 100 ml @ 25 mls/hr IVPB Q8HR [facility] Rx# :[id number] Oral 340 500 Other: # Voids 1 3 # Bowel Movements 1 3 - Exam In general patient is alert and oriented x 3 in no distress HEENT head normocephalic and atraumatic Neck is supple no JVD no goiter no lymphadenopathy no carotid bruit Chest examination reveals a scattered crackles crackles no wheezing Cardiac exam reveals regular heart sounds S1 and S2 no gallops no murmurs Abdomen is soft nontender no organomegaly with normal bowel sounds Extremity exam reveals no edema no cyanosis or clubbing Neurological examination reveals no gross focal deficits - Labs CBC & Chem 7: 09/24/21 06:19 09/25/21 06:12 Labs: Abnormal Lab Results - Last 24 Hours (Table) 09/25/21 09/25/21 Range/Units 06:12 06:12 Chloride 108 H (98-107) mmol/L Carbon Dioxide 21 L (22-30) mmol/L Creatinine 1.20 H (0.52-1.04) mg/dL Glucose 101 H (74-99) mg/dL Ionized Calcium Tomas 5.4 H (4.5-5.3) mg/dL Microbiology - Last 24 Hours (Table) 09/23/21 08:07 Blood Culture - Preliminary Blood No Growth after 48 hours 09/23/21 08:07 Blood Culture - Preliminary Blood No Growth after 48 hours 09/24/21 12:00 Stool Culture - Preliminary Stool Assessment and Plan Plan: Bilateral pneumonia, at this time patient was started on IV Zosyn in the emergency room, will continue with the same, blood culture and sputum culture ordered, infectious disease consultation was requested. 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 For DVT prophylaxis acute Lovenox Consult nutrition for continuation of TPN Small amounts of pured diet for pleasure eating Prognosis is guarded
--- NOTE | 2021-09-25 14:09 | P.PN ---
Subjective Progress Note Date: 09/25/21 This is a 76-year-old white female patient who is well-known to our service from multiple hospitalizations for recurrent aspiration pneumonia. Patient had a history of previous gastrectomy, chronic dysphagia, recurrent aspiration pneumonia, chronic malnutrition and failure to thrive, patient is maintained on TPN in addition to a soft diet by mouth. Patient also has history of chronic kidney disease stage III, hypothyroidism, migraine headaches, chronic pain syndrome, history of CVA, and history of PICC line infection and sepsis. Patient was recently hospitalized for recurrence of aspiration related pneumonia, falls at home following methadone dose increase, and acute on chronic kidney injury. Patient had persistent bilateral midlung opacities, patient had a PICC line inserted and prior hospitalizations for TPN infusion, and completed a course of IV Zosyn. Patient was referred to general surgery for possibility of jejunostomy tube insertion, however patient had previous gastrectomy at the [facility], and she was advised to follow-up with the [facility] on an outpatient basis. At this time she continues to eat by mouth, soft foods in the form of applesauce, and pudding in addition to TPN. She was discharged home on 09/10/2021 to complete a course of IV Zosyn. Patient states she completed her Zosyn 4 days ago, however she states that she continued to be congested, cough, and have intermittent chills and bilateral rib cage pain with coughing and moving. Denied any fever, but does admit to intermittent chills. She came into the emergency department for reevaluation on 09/23/2021. Chest x- ray shows multifocal bilateral areas of consolidation. Admission blood work shows normal white count of 10.2, hemoglobin of 10.2, sodium is 142, potassium is 3.7, chloride is 110, BUN of 17, creatinine is 1.31. Pro-calcitonin level was checked and is negative at 0.08, COVID-19 PCR and influenza A and B were both negative. Patient has been afebrile. She states she is coughing up some right greenish phlegm, no hemoptysis. Appears to be breathing fairly co mfortably, does not appear to be in any acute distress. She was restarted on Zosyn, blood cultures and sputum cultures have been sent. ID service has been consulted On 09/25/2022 patient seen in follow-up on medical surgical floor. Patient is awake and alert, in no acute distress, states still having pain on both sides of her ribs, exacerbated by coughing or deep breathing. At times she is able to bring up some greenish colored phlegm and specimen was sent for cultures. Patient remains on Zosyn for empiric antibiotic coverage for possibility of recurrent aspiration pneumonia. Vital signs stable, she remains on room air, she's been afebrile, blood pressure is been stable. No hemoptysis. No fever or chills. She is tolerating oral intake, she remains on soft diet and remains on TPN for nutritional supplementation. She's had no acute events overnight, the cultures have been sent, preliminary cultures show no growth, stool culture is pending, sputum culture is pending. Today's labs have been reviewed, urine sodium is 139, potassium is 5.0, chloride is 108, CO2 is 21, BUN is 17 and creatinine is 1.2. Pro-calcitonin level came back at 0.08, ID service is following. Objective - Vital Signs Vital signs: Vital Signs Temp 97.8 F 09/25/21 11:53 Pulse 83 09/25/21 11:53 Resp 16 09/25/21 11:53 BP 134/80 09/25/21 11:53 Pulse Ox 99 09/25/21 11:53 FiO2 Intake & Output 09/24/21 09/25/21 09/25/21 18:59 06:59 18:59 Intake Total 440 500 Balance 440 500 Weight 39.463 kg Intake: Intake, IV Titration 100 Amount Piperacillin-Tazobactam 3 100 .375 gm In Sodium Chloride 0.9% 100 ml @ 25 mls/hr IVPB Q8HR [facility] Rx# :[id number] Oral 340 500 Other: # Voids 1 3 # Bowel Movements 1 3 - Exam GENERAL EXAM: Alert, very pleasant, 76-year-old white female, cachectic, on room air pulse ox of 98% but appears to be in no acute distress, on room air comfortable in no apparent distress. HEAD: Normocephalic/atraumatic. EYES: Normal reaction of pupils, equal size. Conjunctiva pink, sclera white. NOSE: Clear with pink turbinates. THROAT: No erythema or exudates. NECK: No masses, no JVD, no thyroid enlargement, no adenopathy. CHEST: No chest wall deformity. Symmetrical expansion. LUNGS: Equal air entry with no crackles, wheeze, rhonchi or dullness. CVS: Regular rate and rhythm, normal S1 and S2, no gallops, no murmurs, no rubs ABDOMEN: Soft, nontender. No hepatosplenomegaly, normal bowel sounds, no guarding or rigidity. EXTREMITIES: No clubbing, no edema, no cyanosis, 2+ pulses and upper and lower extremities. MUSCULOSKELETAL: Muscle strength and tone normal. SPINE: No scoliosis or deformity SKIN: No rashes CENTRAL NERVOUS SYSTEM: Alert and oriented -3. No focal deficits, tone is normal in all 4 extremities. PSYCHIATRIC: Alert and oriented -3. Appropriate affect. Intact judgment and insight. - Labs CBC & Chem 7: 09/24/21 06:19 09/25/21 06:12 Labs: Abnormal Lab Results - Last 24 Hours (Table) 09/25/21 09/25/21 Range/Units 06:12 06:12 Chloride 108 H (98-107) mmol/L Carbon Dioxide 21 L (22-30) mmol/L Creatinine 1.20 H (0.52-1.04) mg/dL Glucose 101 H (74-99) mg/dL Ionized Calcium Tomas 5.4 H (4.5-5.3) mg/dL Microbiology - Last 24 Hours (Table) 09/23/21 08:07 Blood Culture - Preliminary Blood No Growth after 48 hours 09/23/21 08:07 Blood Culture - Preliminary Blood No Growth after 48 hours 09/24/21 12:00 Stool Culture - Preliminary Stool Assessment and Plan Plan: #1. Bilateral rib pain, cough related to recurrent aspiration, patient is recovering from recent aspiration related pneumonia. COVID-19 PCR, influenza A and B were negative. Patient has completed a course of IV Zosyn. Chest x-ray showed multifocal bilateral areas of consolidation. Pro-calcitonin level is negative at 0.08 #2. Chronic pain syndrome, most recently on methadone for pain control #3. Chronic kidney disease stage III at baseline #4. Malnutrition and failure to thrive #5. Recurrent aspiration with multiple hospitalizations, patient is currently on TPN for nutritional support in addition to some oral feedings on soft diet #6. History of gastrectomy #7. Recent hospitalization for urinary tract infection, related to enterococcus faecalis #8. Chronic pain syndrome #9. Previous history of CVA #10. History of hypothyroidism #11. History of spinal stenosis and chronic back pain #12. History of chronic anemia of chronic disease #13. Anxiety/depression Plan: Continue current antibiotics We will add IV steroids with Solu-Medrol 40 mg every 12 hours Ultram has been sent Continue TPN for nutritional support, maintain aspiration precautions We'll continue to follow, ID service recommendations I have personally seen and examined the patient, performed the documentation and the assessment and plan as written. Number of minutes spent on the visit: [10] This is a joint evaluation was done along with a nurse practitioner. This evaluation was done in more than 20 minutes. Reviewed x-ray. Continue antibiotics. IV Solu-Medrol. Continue TPN. We'll follow. Time with Patient: Less than 30
[2021-09-25] MEDS: methylPREDNISolone SOD SUCCI 40 MG/ML 1 ML VIAL IV SCH ×2 (14:15→21:44)
[2021-09-25] MEDS: MIRTAZAPINE 45 MG TABLET PO SCH (23:20)
[2021-09-26] MEDS: BUTALB/APAP/CAFF 50-325-40MG TAB PO PRN ×4 (02:04→20:07)
[2021-09-26] MEDS: 1: AMINO ACID 5%-D20W+LYTES*E* 1,000 ML 2: MVI, ADULT NO.4 WITH VIT K 10 ML, TRACE (CON IV SCH ×6 (04:07→23:27)
[2021-09-26] MEDS: LEVOTHYROXINE 100 MCG TAB PO SCH (05:47)
[2021-09-26] MEDS: oxyCODONE-APAP 5-325MG 1 EACH TAB PO PRN ×4 (05:47→23:24)
--- NOTE | 2021-09-26 07:51 | P.PN ---
Subjective Progress Note Date: 09/24/21 Principal diagnosis: Pneumonia Patient is a 76-year-old female in this patient did have a history of gastrectomy short gut syndrome requiring TPN for the patient did have a PICC line with a history of recurrent aspiration pneumonia and PICC line infection this and completed a course of IV Zosyn, subsequently presented to hospital with increasing shortness of breath or cough with purulent sputum with the abnormal x-ray suggestive of pneumonia. On today's evaluation that is 09/24/2021, the patient remains to be afebrile, complaining of shortness of breath and cough and bring up some sputum sputum has not been collected, denies abdominal pain no nausea no vomiting or diarrhea Objective - Vital Signs Vital signs: Vital Signs Temp 98.1 F 09/24/21 03:48 Pulse 100 09/24/21 03:48 Resp 18 09/24/21 03:48 BP 165/83 09/24/21 03:48 Pulse Ox 97 09/24/21 03:48 FiO2 Intake & Output 09/23/21 09/24/21 09/24/21 18:59 06:59 18:59 Intake Total 110 Balance 110 Weight 39.463 kg Intake: IV 10 Invasive Line 1 10 Intake, IV Titration 100 Amount Piperacillin-Tazobactam 3 100 .375 gm In Sodium Chloride 0.9% 100 ml @ 200 mls/hr IVPB [facility] Rx#:[id number] Other: Voiding Method Toilet Bedside Commode # Voids 1 1 # Bowel Movements 1 - Exam GENERAL DESCRIPTION: An elderly female lying in bed in no distress RESPIRATORY SYSTEM: Unlabored breathing , decreased breath sounds at bases HEART: S1 S2 regular rate and rhythm , ABDOMEN: Soft , no tenderness EXTREMITIES: No edema feet - Labs CBC & Chem 7: 09/24/21 06:19 09/25/21 06:12 Labs: Abnormal Lab Results - Last 24 Hours (Table) 09/24/21 09/24/21 Range/Units 06:19 06:19 WBC 10.35 H (4.50-10.00) X 10*3/uL RBC 3.48 L (4.10-5.20) X 10*6/uL Hgb 9.6 L (12.0-15.0) g/dL Hct 30.7 L (37.2-46.3) % MCHC 31.3 L (32.0-37.0) g/dL RDW 18.0 H (11.5-14.5) % MPV 9.2 L (9.5-12.2) fL Immature Gran # 0.05 H (0.00-0.04) X 10*3/uL Eosinophils # 0.66 H (0.04-0.35) X 10*3/uL Est GFR (CKD-EPI)AfAm 46.8 L (60.0-200.0) Est GFR (CKD-EPI)NonAf 40.4 L (60.0-200.0) Calcium 8.6 L (8.7-10.3) mg/dL Total Bilirubin <0.15 L (0.30-1.20) mg/dL Alkaline Phosphatase 219 H (41-126) U/L C-Reactive Protein 2.70 H (0.00-0.80) mg/dL Total Protein 5.8 L (6.2-8.2) g/dL Albumin 3.2 L (3.8-4.9) g/dL Albumin/Globulin Ratio 1.23 L (1.60-3.17) g/dL Microbiology - Last 24 Hours (Table) 09/23/21 08:07 Blood Culture - Preliminary Blood No Growth after 24 hours 09/23/21 08:07 Blood Culture - Preliminary Blood No Growth after 24 hours Assessment and Plan (1) Pneumonia Current Visit: Yes Status: Acute Code(s): J18.9 - PNEUMONIA, UNSPECIFIED ORGANISM SNOMED Code(s): 064369708 Plan: 1patient presented to hospital with increasing shortness of breath and cough with some greenish sputum in this patient did have a chest x-ray suggestive of pneumonia consolidation however the patient did not have any fever she did have normal white count and no hypoxemia satting 98% with all the clinical findings Velcro-based pneumonia however x-ray findings cannot be disregarded and a question of possible recurrent aspiration pneumonia with the patient noncompliant with her diet, she was supposed to follow-up with the [facility] general surgical team for placement of the PEG tube which has not been done. 2still waiting for sputum to be collected for gram stain and culture. 3patient did have a normal procalcitonin. 4May continue Zosyn. Time with Patient: Less than 30
--- NOTE | 2021-09-26 07:55 | P.PN ---
Subjective Progress Note Date: 09/25/21 Principal diagnosis: Pneumonia Patient is a 76-year-old female in this patient did have a history of gastrectomy short gut syndrome requiring TPN for the patient did have a PICC line with a history of recurrent aspiration pneumonia and PICC line infection this and completed a course of IV Zosyn, subsequently presented to hospital with increasing shortness of breath or cough with purulent sputum with the abnormal x-ray suggestive of pneumonia. On today's evaluation that is 09/25/2021, the patient continues to be afebrile, the patient continues to be complaining of shortness of breath however no need for Supplemental oxygen and cough and bring up some sputum sputum has been collected for culture, the patient denies abdominal pain however is complaining of loose stools Objective - Vital Signs Vital signs: Vital Signs Temp 97.8 F 09/25/21 11:53 Pulse 83 09/25/21 11:53 Resp 16 09/25/21 11:53 BP 134/80 09/25/21 11:53 Pulse Ox 99 09/25/21 11:53 FiO2 Intake & Output 09/24/21 09/25/21 09/25/21 18:59 06:59 18:59 Intake Total 440 500 Balance 440 500 Weight 39.463 kg Intake: Intake, IV Titration 100 Amount Piperacillin-Tazobactam 3 100 .375 gm In Sodium Chloride 0.9% 100 ml @ 25 mls/hr IVPB Q8HR [facility] Rx# :[id number] Oral 340 500 Other: # Voids 1 3 # Bowel Movements 1 3 - Exam GENERAL DESCRIPTION: An elderly female lying in bed in no distress RESPIRATORY SYSTEM: Unlabored breathing , decreased breath sounds at bases HEART: S1 S2 regular rate and rhythm , ABDOMEN: Soft , no tenderness EXTREMITIES: No edema feet - Labs CBC & Chem 7: 09/24/21 06:19 09/25/21 06:12 Labs: Abnormal Lab Results - Last 24 Hours (Table) 09/25/21 09/25/21 Range/Units 06:12 06:12 Chloride 108 H (98-107) mmol/L Carbon Dioxide 21 L (22-30) mmol/L Creatinine 1.20 H (0.52-1.04) mg/dL Glucose 101 H (74-99) mg/dL Ionized Calcium Tomas 5.4 H (4.5-5.3) mg/dL Microbiology - Last 24 Hours (Table) 09/23/21 08:07 Blood Culture - Preliminary Blood No Growth after 48 hours 09/23/21 08:07 Blood Culture - Preliminary Blood No Growth after 48 hours 09/24/21 12:00 Stool Culture - Preliminary Stool Assessment and Plan (1) Pneumonia Current Visit: Yes Status: Acute Code(s): J18.9 - PNEUMONIA, UNSPECIFIED ORGANISM SNOMED Code(s): 337117133 Plan: 1patient presented to hospital with increasing shortness of breath and cough with some greenish sputum in this patient did have a chest x-ray suggestive of pneumonia consolidation however the patient did not have any fever she did have normal white count and no hypoxemia satting 98% with all the clinical findings Velcro-based pneumonia however x-ray findings cannot be disregarded and a question of possible recurrent aspiration pneumonia with the patient noncompliant with her diet, she was supposed to follow-up with the [facility] general surgical team for placement of the PEG tube which has not been done. 2 sputum has been collected for gram stain and culture which is currently pen ding. 3patient did have a normal procalcitonin and mildly elevated CRP currently on Zosyn, patient may benefit from CT better defined underlying pulmonary abnormality, we will discuss with pulmonary 4diarrhea we will check a stool for C. diff and treat if positive Time with Patient: Less than 30
[2021-09-26] MEDS: hydrOXYzine pamoate 25 MG CAP PO SCH ×3 (08:54→21:26)
[2021-09-26] MEDS: busPIRone HCl 10 MG TAB PO SCH ×2 (08:54→20:07)
[2021-09-26] MEDS: METHADONE 10 MG TAB PO SCH ×2 (08:55→20:07)
[2021-09-26] MEDS: methylPREDNISolone SOD SUCCI 40 MG/ML 1 ML VIAL IV SCH ×2 (08:55→20:07)
[2021-09-26] MEDS: ENOXAPARIN 30 MG/0.3 ML SYRINGE SQ SCH ×2 (08:55→09:01)
[2021-09-26] MEDS: buPROPion XL 300 MG TAB.ER.24H PO SCH (08:56)
[2021-09-26] MEDS: ASPIRIN 81 MG PO SCH (08:56)
[2021-09-26] MEDS: SODIUM BICARBONATE TAB 650 MG TAB PO SCH (08:56)
[2021-09-26] MEDS: PANTOPRAZOLE 40 MG TABLET PO SCH (08:56)
[2021-09-26] MEDS: buPROPion XL 150 MG TAB.ER.24H PO SCH (08:56)
[2021-09-26] MEDS: PIPERACILLIN-TAZOBACTAM 3.375 GM in SODIUM CHLORIDE 0.9% 100 ML IVPB SCH ×3 (08:57→23:24)
[2021-09-26] MEDS: SYMBICORT 160-4.5 MCG INHALER INHALATION SCH ×2 (08:59→20:27)
[2021-09-26 10:42] LABS: Basophils # (A) 0.08 X 10*3/uL (0.00-0.10); Basophils % (A) 0.6 %; Eosinophils # (A) 0.04 X 10*3/uL (0.04-0.35); Eosinophils % (A) 0.3 %; HCT 36.6 % (37.2-46.3); HGB 11.3 g/dL (12.0-15.0); Immature Grans, Automated 0.5 %; Lymphocytes # (A) 2.18 X 10*3/uL (0.90-5.00); Lymphocytes % (A) 17.7 %; MCH 27.3 pg (27.0-32.0); MCHC 30.9 g/dL (32.0-37.0); MCV 88.4 fL (80.0-97.0); Mean Platelet Volume 9.6 fL (9.5-12.2); Monocytes # (A) 0.65 X 10*3/uL (0.20-1.00); Monocytes % (A) 5.3 %; NRBC Per 100 WBC 0 /100 WBCS (0.0-0.0); Neutrophils # (A) 9.32 X 10*3/uL (1.80-7.70); Neutrophils % (A) 75.6 %; Platelet Count 444 X 10*3/uL (140-440); RBC 4.14 X 10*6/uL (4.10-5.20); RDW 17.8 % (11.5-14.5); WBC 12.33 X 10*3/uL (4.50-10.00)
[2021-09-26 11:26] LABS: Magnesium 2.2 mg/dL (1.5-2.4); Phosphorus 2.6 mg/dL (2.4-5.1)
[2021-09-26 11:28] LABS: African American GFR (CKD) 46.8 (60.0-200.0); BUN/Creat Ratio 20.38 Ratio (12.00-20.00); Blood Urea Nitrogen 26.5 mg/dL (9.0-27.0); Calcium 9.1 mg/dL (8.7-10.3); Carbon Dioxide 20.7 mmol/L (20.0-27.5); Chloride 103 mmol/L (96-109); Glucose 177 mg/dL (70-110); Non-African American GFR(CKD) 40.4 (60.0-200.0); Potassium 5.4 mmol/L (3.5-5.5); Sodium 135 mmol/L (135-145); Total Protein 6.6 g/dL (6.2-8.2)
[2021-09-26 11:29] LABS: ALT 13 U/L (8-44); AST 14 U/L (13-35); Albumin 3.7 g/dL (3.8-4.9); Albumin/Globulin Ratio 1.28 (1.60-3.17); Alkaline Phosphatase 233 U/L (41-126); Globulin 2.9 g/dL (1.6-3.3); Total Bilirubin <0.15 mg/dL (0.30-1.20)
[2021-09-26] MEDS: FERROUS SULFATE 325 MG TAB PO SCH (11:49)
--- NOTE | 2021-09-26 13:00 | P.PN ---
Subjective Progress Note Date: 09/26/21 This is a 76-year-old white female patient who is well-known to our service from multiple hospitalizations for recurrent aspiration pneumonia. Patient had a history of previous gastrectomy, chronic dysphagia, recurrent aspiration pneumonia, chronic malnutrition and failure to thrive, patient is maintained on TPN in addition to a soft diet by mouth. Patient also has history of chronic kidney disease stage III, hypothyroidism, migraine headaches, chronic pain syndrome, history of CVA, and history of PICC line infection and sepsis. Patient was recently hospitalized for recurrence of aspiration related pneumonia, falls at home following methadone dose increase, and acute on chronic kidney injury. Patient had persistent bilateral midlung opacities, patient had a PICC line inserted and prior hospitalizations for TPN infusion, and completed a course of IV Zosyn. Patient was referred to general surgery for possibility of jejunostomy tube insertion, however patient had previous gastrectomy at the [facility], and she was advised to follow-up with the [facility] on an outpatient basis. At this time she continues to eat by mouth, soft foods in the form of applesauce, and pudding in addition to TPN. She was discharged home on 09/10/2021 to complete a course of IV Zosyn. Patient states she completed her Zosyn 4 days ago, however she states that she continued to be congested, cough, and have intermittent chills and bilateral rib cage pain with coughing and moving. Denied any fever, but does admit to intermittent chills. She came into the emergency department for reevaluation on 09/23/2021. Chest x- ray shows multifocal bilateral areas of consolidation. Admission blood work shows normal white count of 10.2, hemoglobin of 10.2, sodium is 142, potassium is 3.7, chloride is 110, BUN of 17, creatinine is 1.31. Pro-calcitonin level was checked and is negative at 0.08, COVID-19 PCR and influenza A and B were both negative. Patient has been afebrile. She states she is coughing up some right greenish phlegm, no hemoptysis. Appears to be breathing fairly co mfortably, does not appear to be in any acute distress. She was restarted on Zosyn, blood cultures and sputum cultures have been sent. ID service has been consulted On 09/25/2022 patient seen in follow-up on medical surgical floor. Patient is awake and alert, in no acute distress, states still having pain on both sides of her ribs, exacerbated by coughing or deep breathing. At times she is able to bring up some greenish colored phlegm and specimen was sent for cultures. Patient remains on Zosyn for empiric antibiotic coverage for possibility of recurrent aspiration pneumonia. Vital signs stable, she remains on room air, she's been afebrile, blood pressure is been stable. No hemoptysis. No fever or chills. She is tolerating oral intake, she remains on soft diet and remains on TPN for nutritional supplementation. She's had no acute events overnight, the cultures have been sent, preliminary cultures show no growth, stool culture is pending, sputum culture is pending. Today's labs have been reviewed, urine sodium is 139, potassium is 5.0, chloride is 108, CO2 is 21, BUN is 17 and creatinine is 1.2. Pro-calcitonin level came back at 0.08, ID service is following. 09/26/2021, I'm seeing the patient for a follow-up. She is calm and comfortable on room air oxygen. I reviewed a series of chest x-rays and a CAT scan on this patient. Unfortunately, the patient continues to have persistent bilateral pulmonary infiltrates and consolidation nodules and this has been an ongoing problem since early 2020. There are areas of infiltration in the right and the patient has multiple variable sized nodules in the mid and lower lung zones and the patient was also noted to have a previous small left-sided pleural effusion. Large areas of consolidation were also seen in the left upper lobe and left lower lobe. There are also some small areas of cavitation scattered throughout the lung. The exact etiology for his ongoing pulmonary infiltration is not clear. The patient undergone previous bronchoscopy 2 in the microbial cultures have been essentially negative. As such, I think is important to do a further investigation. My recommendations for this patient is an indication of bronchoscopy, repeated bronchial lavage either same time. Biopsies to histologically evaluates these abnormal pulmonary infiltrates. The patient blood work shows a white cell count 4.3 with a hemoglobin of 11.3 and the creatinine is 1.3. ID is opted to put the patient IV Zosyn. The patient was in significant for nutritional support. She is on Lasix 20 mg by mouth daily and she is also on IV Solu-Medrol. In terms of pain control, the patient was switched to Percocet. Objective - Vital Signs Vital signs: Vital Signs Temp 97.7 F 09/26/21 11:27 Pulse 82 09/26/21 11:27 Resp 18 09/26/21 11:27 BP 135/78 09/26/21 11:27 Pulse Ox 97 09/26/21 11:27 FiO2 21 09/25/21 19:26 Intake & Output 09/25/21 09/26/21 09/26/21 18:59 06:59 18:59 Intake Total 650 1000 Balance 650 1000 Intake: Intake, IV Titration 650 460 Amount Amino Acid 5%-D20w+Lytes* 240 E* 1,000 ml @ 50 mls/hr IV .BY [facility] Rx#: [id number] Fat Emulsion 20% 500 ml @ 360 41.667 mls/hr IV Tu [facility] Rx#:[id number] Mvi, Adult No.4 with Vit 50 360 K 10 ml Trace (Conc-1Ml/ Dose) 1 ml In Amino Acid 5%-D20w+Lytes*E* 1,000 ml @ 30 mls/hr IV .Q24H [facility] Rx#:[id number] Piperacillin-Tazobactam 3 100 .375 gm In Sodium Chloride 0.9% 100 ml @ 25 mls/hr IVPB Q8HR [facility] Rx# :[id number] Oral 540 Other: Voiding Method Toilet Bedside Commode # Voids 3 - Exam GENERAL EXAM: Alert, very pleasant, 76-year-old white female, cachectic, on room air pulse ox of 98% but appears to be in no acute distress, on room air comfortable in no apparent distress. HEAD: Normocephalic/atraumatic. EYES: Normal reaction of pupils, equal size. Conjunctiva pink, sclera white. NOSE: Clear with pink turbinates. THROAT: No erythema or exudates. NECK: No masses, no JVD, no thyroid enlargement, no adenopathy. CHEST: No chest wall deformity. Symmetrical expansion. LUNGS: Equal air entry with no crackles, wheeze, rhonchi or dullness. CVS: Regular rate and rhythm, normal S1 and S2, no gallops, no murmurs, no rubs ABDOMEN: Soft, nontender. No hepatosplenomegaly, normal bowel sounds, no guarding or rigidity. EXTREMITIES: No clubbing, no edema, no cyanosis, 2+ pulses and upper and lower extremities. MUSCULOSKELETAL: Muscle strength and tone normal. SPINE: No scoliosis or deformity SKIN: No rashes CENTRAL NERVOUS SYSTEM: Alert and oriented -3. No focal deficits, tone is normal in all 4 extremities. PSYCHIATRIC: Alert and oriented -3. Appropriate affect. Intact judgment and insight. - Labs CBC & Chem 7: 09/26/21 08:46 09/26/21 08:46 Labs: Abnormal Lab Results - Last 24 Hours (Table) 09/25/21 09/26/21 09/26/21 Range/Units 06:12 08:46 08:46 WBC 12.33 H (4.50-10.00) X 10*3/uL Hgb 11.3 L (12.0-15.0) g/dL Hct 36.6 L (37.2-46.3) % MCHC 30.9 L (32.0-37.0) g/dL RDW 17.8 H (11.5-14.5) % Plt Count 444 H (140-440) X 10*3/uL Immature Gran # 0.06 H (0.00-0.04) X 10*3/uL Neutrophils # 9.32 H (1.80-7.70) X 10*3/uL Est GFR (CKD-EPI)AfAm 46.8 L (60.0-200.0) Est GFR (CKD-EPI)NonAf 40.4 L (60.0-200.0) BUN/Creatinine Ratio 20.38 H (12.00-20.00) Ratio Glucose 177 H (70-110) mg/dL Total Bilirubin <0.15 L (0.30-1.20) mg/dL Alkaline Phosphatase 233 H (41-126) U/L Albumin 3.7 L (3.8-4.9) g/dL Albumin/Globulin Ratio 1.28 L (1.60-3.17) g/dL Triglycerides 181.00 H (0.00-149.00) mg/dL Microbiology - Last 24 Hours (Table) 09/23/21 08:07 Blood Culture - Preliminary Blood No Growth after 72 hours 09/23/21 08:07 Blood Culture - Preliminary Blood No Growth after 72 hours 06/08/22 01:33 Gram Stain - Preliminary Sputum Sputum Culture - Preliminary Assessment and Plan Plan: #1. Bilateral rib pain, cough related to recurrent aspiration, patient is recovering from recent aspiration related pneumonia. COVID-19 PCR, influenza A and B were negative. Patient has completed a course of IV Zosyn. Chest x-ray showed multifocal bilateral areas of consolidation. Pro-calcitonin level is negative at 0.08. The exact nature of this pulmonary infiltrates are not known. Those have been waxing and waning in pulmonary infiltrates with large areas of consolidation and some early cavitation. Previous bronchioloalveolar lavage 2. May need a bronchoscopy which has bronchial biopsies for histologic diagnosis. #2. Chronic pain syndrome, most recently on methadone for pain control #3. Chronic kidney disease stage III at baseline #4. Malnutrition and failure to thrive #5. Recurrent aspiration with multiple hospitalizations, patient is currently on TPN for nutritional support in addition to some oral feedings on soft diet #6. History of gastrectomy #7. Recent hospitalization for urinary tract infection, related to enterococcus faecalis #8. Chronic pain syndrome #9. Previous history of CVA #10. History of hypothyroidism #11. History of spinal stenosis and chronic back pain #12. History of chronic anemia of chronic disease #13. Anxiety/depression Plan: Clinically stable Discussed the findings with the patient. My recommendation is to repeat a bronchoscopy. We'll do a navigational bronchoscopy under CAT scan guidance and the patient would have a computed tomography scan of the chest using the [facility] protocol will be followed up by bronchoscopy, lavage and biopsies. She was agreeable and the procedure will be tentatively set up for tomorrow. Continue current antibiotics We'll continue to follow
[2021-09-26] MEDS: ONDANSETRON 4 MG TAB PO PRN (15:53)
--- NOTE | 2021-09-26 17:01 | P.PN ---
Subjective Progress Note Date: 09/26/21 Louise Sutton, is a 76-year-old female who presented to [facility] emergency room with a chief complaint of worsening cough and chest congestion She was evaluated in the emergency room vital examination on presentation revealed a temperature of 97.8 pulse 82 respiration 18 blood pressure 141/88 pulse ox 99% on room air Laboratory data revealed a white blood count of 10.2 hemoglobin 10.2 platelet count 470 sodium 142 potassium 3.7 chloride 110 CO2 22 BUN 17 creatinine 1.31 glucose level 101 COVID-19 PCR was negative influenza A and B testing were negative Testing in the emergency room revealed chest x-ray done in the emergency room revealed evidence of pneumonic consolidations with patchy air space consolidation in the mid lung calixto that are worse than previous x-ray Patient was admitted to medical floor for further evaluation and treatment On 09/24/2021 patient was seen and examined on the medical floor she is alert and oriented 3 in no apparent distress she is complaining of cough for and complaining of pain in the middle of her back radiating to lower ribs area otherwise she denies any complaints there is no fever or chills no headache or dizziness no chest pain no nausea or vomiting no abdominal pain no diarrhea and no urinary symptoms On 09/25/2021 patient is alert and oriented 3. Patient remains on IV Zosyn. Pulmonary and infectious disease services are following. Current vitals temp 98.3, heart rate 90, respiratory rate 20, blood pressure 128/70 with a pulse ox of 97% on room air On 09/26/2021 patient was seen and examined on the medical floor she is alert and oriented 3 in no apparent distress there is no fever or chills no headache or dizziness no chest pain no shortness of breath she is still complaining of cough and pain in the lower ribs area when she coughs no nausea or vomiting no abdominal pain no diarrhea and no urinary symptoms. Input from pulmonary reviewed patient is scheduled for bronchoscopy with possible biopsy tomorrow, continue with current medications at this time continue with current pured diet for pleasure feeding continue with TPN Objective - Vital Signs Vital signs: Vital Signs Temp 97.7 F 09/26/21 11:27 Pulse 82 09/26/21 11:27 Resp 18 09/26/21 11:27 BP 135/78 09/26/21 11:27 Pulse Ox 97 09/26/21 11:27 FiO2 21 09/25/21 19:26 Intake & Output 09/25/21 09/26/21 09/26/21 18:59 06:59 18:59 Intake Total 650 1000 Balance 650 1000 Intake: Intake, IV Titration 650 460 Amount Amino Acid 5%-D20w+Lytes* 240 E* 1,000 ml @ 50 mls/hr IV .BY DURATION [facility] Rx#: [id number] Fat Emulsion 20% 500 ml @ 360 41.667 mls/hr IV Tu [facility] Rx#:[id number] Mvi, Adult No.4 with Vit 50 360 K 10 ml Trace (Conc-1Ml/ Dose) 1 ml In Amino Acid 5%-D20w+Lytes*E* 1,000 ml @ 30 mls/hr IV .Q24H [facility] Rx#:[id number] Piperacillin-Tazobactam 3 100 .375 gm In Sodium Chloride 0.9% 100 ml @ 25 mls/hr IVPB Q8HR [facility] Rx# :[id number] Oral 540 Other: Voiding Method Toilet Bedside Commode # Voids 3 - Exam In general patient is alert and oriented x 3 in no distress HEENT head normocephalic and atraumatic Neck is supple no JVD no goiter no lymphadenopathy no carotid bruit Chest examination reveals a scattered crackles crackles no wheezing Cardiac exam reveals regular heart sounds S1 and S2 no gallops no murmurs Abdomen is soft nontender no organomegaly with normal bowel sounds Extremity exam reveals no edema no cyanosis or clubbing Neurological examination reveals no gross focal deficits - Labs CBC & Chem 7: 09/26/21 08:46 09/26/21 08:46 Labs: Abnormal Lab Results - Last 24 Hours (Table) 09/25/21 09/26/21 09/26/21 Range/Units 06:12 08:46 08:46 WBC 12.33 H (4.50-10.00) X 10*3/uL Hgb 11.3 L (12.0-15.0) g/dL Hct 36.6 L (37.2-46.3) % MCHC 30.9 L (32.0-37.0) g/dL RDW 17.8 H (11.5-14.5) % Plt Count 444 H (140-440) X 10*3/uL Immature Gran # 0.06 H (0.00-0.04) X 10*3/uL Neutrophils # 9.32 H (1.80-7.70) X 10*3/uL Est GFR (CKD-EPI)AfAm 46.8 L (60.0-200.0) Est GFR (CKD-EPI)NonAf 40.4 L (60.0-200.0) BUN/Creatinine Ratio 20.38 H (12.00-20.00) Ratio Glucose 177 H (70-110) mg/dL Total Bilirubin <0.15 L (0.30-1.20) mg/dL Alkaline Phosphatase 233 H (41-126) U/L Albumin 3.7 L (3.8-4.9) g/dL Albumin/Globulin Ratio 1.28 L (1.60-3.17) g/dL Triglycerides 181.00 H (0.00-149.00) mg/dL Microbiology - Last 24 Hours (Table) 09/25/21 01:33 Gram Stain - Preliminary Sputum Sputum Culture - Preliminary Lesly albicans 09/23/21 08:07 Blood Culture - Preliminary Blood No Growth after 72 hours 09/23/21 08:07 Blood Culture - Preliminary Blood No Growth after 72 hours Assessment and Plan Plan: Bilateral pneumonia, at this time patient was started on IV Zosyn in the emergency room, will continue with the same, blood culture and sputum culture ordered, infectious disease consultation was requested. 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 For DVT prophylaxis acute Lovenox Consult nutrition for continuation of TPN Small amounts of pured diet for pleasure eating Prognosis is guarded
[2021-09-26] MEDS: MIRTAZAPINE 45 MG TABLET PO SCH (20:08)
[2021-09-27] MEDS: POTASSIUM CHLORIDE IV SCH ×16 (00:27→20:08)
[2021-09-27] MEDS: [UNRECOGNIZED DRUG - OTHER] IV SCH ×16 (00:27→20:08)
[2021-09-27] MEDS: MAGNESIUM SULFATE IV SCH ×16 (00:27→20:08)
[2021-09-27] MEDS: SODIUM ACETATE IV SCH ×16 (00:27→20:08)
[2021-09-27] MEDS: BUTALB/APAP/CAFF 50-325-40MG TAB PO PRN ×4 (03:49→22:04)
[2021-09-27] MEDS: LEVOTHYROXINE 100 MCG TAB PO SCH (05:14)
[2021-09-27] MEDS: oxyCODONE-APAP 5-325MG 1 EACH TAB PO PRN ×4 (05:14→23:18)
[2021-09-27] MEDS: METHADONE 10 MG TAB PO SCH ×2 (08:16→20:09)
[2021-09-27] MEDS: busPIRone HCl 10 MG TAB PO SCH ×2 (08:16→20:09)
[2021-09-27] MEDS: SODIUM BICARBONATE TAB 650 MG TAB PO SCH (08:16)
[2021-09-27] MEDS: PIPERACILLIN-TAZOBACTAM 3.375 GM in SODIUM CHLORIDE 0.9% 100 ML IVPB SCH ×3 (08:16→23:18)
[2021-09-27] MEDS: PANTOPRAZOLE 40 MG TABLET PO SCH (08:17)
[2021-09-27] MEDS: methylPREDNISolone SOD SUCCI 40 MG/ML 1 ML VIAL IV SCH ×2 (08:17→20:10)
[2021-09-27] MEDS: hydrOXYzine pamoate 25 MG CAP PO SCH ×3 (08:17→22:03)
[2021-09-27] MEDS: ENOXAPARIN 30 MG/0.3 ML SYRINGE SQ SCH (08:17)
[2021-09-27] MEDS: ASPIRIN 81 MG PO SCH (08:17)
[2021-09-27] MEDS: buPROPion XL 150 MG TAB.ER.24H PO SCH (08:18)
[2021-09-27] MEDS: buPROPion XL 300 MG TAB.ER.24H PO SCH (08:19)
[2021-09-27] MEDS: SYMBICORT 160-4.5 MCG INHALER INHALATION SCH ×2 (08:26→20:00)
--- NOTE | 2021-09-27 10:05 | P.PN ---
Subjective Progress Note Date: 09/27/21 Louise Sutton, is a 76-year-old female who presented to [facility] emergency room with a chief complaint of worsening cough and chest congestion She was evaluated in the emergency room vital examination on presentation revealed a temperature of 97.8 pulse 82 respiration 18 blood pressure 141/88 pulse ox 99% on room air Laboratory data revealed a white blood count of 10.2 hemoglobin 10.2 platelet count 470 sodium 142 potassium 3.7 chloride 110 CO2 22 BUN 17 creatinine 1.31 glucose level 101 COVID-19 PCR was negative influenza A and B testing were negative Testing in the emergency room revealed chest x-ray done in the emergency room revealed evidence of pneumonic consolidations with patchy air space consolidation in the mid lung calixto that are worse than previous x-ray Patient was admitted to medical floor for further evaluation and treatment On 09/24/2021 patient was seen and examined on the medical floor she is alert and oriented 3 in no apparent distress she is complaining of cough for and complaining of pain in the middle of her back radiating to lower ribs area otherwise she denies any complaints there is no fever or chills no headache or dizziness no chest pain no nausea or vomiting no abdominal pain no diarrhea and no urinary symptoms On 09/25/2021 patient is alert and oriented 3. Patient remains on IV Zosyn. Pulmonary and infectious disease services are following. Current vitals temp 98.3, heart rate 90, respiratory rate 20, blood pressure 128/70 with a pulse ox of 97% on room air On 09/26/2021 patient was seen and examined on the medical floor she is alert and oriented 3 in no apparent distress there is no fever or chills no headache or dizziness no chest pain no shortness of breath she is still complaining of cough and pain in the lower ribs area when she coughs no nausea or vomiting no abdominal pain no diarrhea and no urinary symptoms. Input from pulmonary reviewed patient is scheduled for bronchoscopy with possible biopsy tomorrow, continue with current medications at this time continue with current pured diet for pleasure feeding continue with TPN On 09/27/2021 patient is alert and oriented 3. Tentative plans for possible bronchoscopy today per pulmonary. Current vital signs temp 97.3, heart rate 79, respiratory 18, blood pressure 120/73 with a pulse ox of 98% on room air. Patient remains on IV Zosyn. Pulmonary and infectious disease services are following Objective - Vital Signs Vital signs: Vital Signs Temp 97.3 F L 09/27/21 05:00 Pulse 79 09/27/21 05:00 Resp 16 09/27/21 05:00 BP 128/73 09/27/21 05:00 Pulse Ox 98 09/27/21 05:00 FiO2 21 09/26/21 20:29 Intake & Output 09/26/21 09/27/21 09/27/21 18:59 06:59 18:59 Intake Total 600 Balance 600 Intake: IV 600 Mvi, Adult No.4 with Vit 600 K 10 ml Trace (Conc-1Ml/ Dose) 1 ml In Amino Acid 5%-D20w+Lytes*E* 1,000 ml @ 50 mls/hr IV .BY DURATION [facility] Rx#: [id number] Other: Voiding Method Toilet Toilet Bedside Commode Bedside Commode # Voids 4 - Labs CBC & Chem 7: 09/26/21 08:46 09/26/21 08:46 Labs: Abnormal Lab Results - Last 24 Hours (Table) 09/26/21 09/26/21 Range/Units 08:46 08:46 WBC 12.33 H (4.50-10.00) X 10*3/uL Hgb 11.3 L (12.0-15.0) g/dL Hct 36.6 L (37.2-46.3) % MCHC 30.9 L (32.0-37.0) g/dL RDW 17.8 H (11.5-14.5) % Plt Count 444 H (140-440) X 10*3/uL Immature Gran # 0.06 H (0.00-0.04) X 10*3/uL Neutrophils # 9.32 H (1.80-7.70) X 10*3/uL Est GFR (CKD-EPI)AfAm 46.8 L (60.0-200.0) Est GFR (CKD-EPI)NonAf 40.4 L (60.0-200.0) BUN/Creatinine Ratio 20.38 H (12.00-20.00) Ratio Glucose 177 H (70-110) mg/dL Total Bilirubin <0.15 L (0.30-1.20) mg/dL Alkaline Phosphatase 233 H (41-126) U/L Albumin 3.7 L (3.8-4.9) g/dL Albumin/Globulin Ratio 1.28 L (1.60-3.17) g/dL Microbiology - Last 24 Hours (Table) 09/24/21 12:00 Stool Culture - Preliminary Stool 09/25/21 01:33 Gram Stain - Preliminary Sputum Sputum Culture - Preliminary Lesly albicans 09/23/21 08:07 Blood Culture - Preliminary Blood No Growth after 72 hours 09/23/21 08:07 Blood Culture - Preliminary Blood No Growth after 72 hours
[2021-09-27 10:34] LABS: Basophils # (A) 0.08 X 10*3/uL (0.00-0.10); Basophils % (A) 0.6 %; Eosinophils # (A) 0.09 X 10*3/uL (0.04-0.35); Eosinophils % (A) 0.7 %; HCT 31.4 % (37.2-46.3); HGB 9.4 g/dL (12.0-15.0); Immature Grans, Automated 0.6 %; Lymphocytes # (A) 2.21 X 10*3/uL (0.90-5.00); Lymphocytes % (A) 17.6 %; MCH 26.9 pg (27.0-32.0); MCHC 29.9 g/dL (32.0-37.0); MCV 89.7 fL (80.0-97.0); Monocytes # (A) 0.82 X 10*3/uL (0.20-1.00); Monocytes % (A) 6.5 %; NRBC Per 100 WBC 0 /100 WBCS (0.0-0.0); Neutrophils # (A) 9.26 X 10*3/uL (1.80-7.70); Platelet Count 358 X 10*3/uL (140-440); WBC 12.53 X 10*3/uL (4.50-10.00)
[2021-09-27 10:54] LABS: Magnesium 2.2 mg/dL (1.5-2.4); Phosphorus 2.9 mg/dL (2.4-5.1)
[2021-09-27 11:07] LABS: ALT 12 U/L (8-44); AST 11 U/L (13-35); African American GFR (CKD) 42.8 (60.0-200.0); Albumin 3.2 g/dL (3.8-4.9); Albumin/Globulin Ratio 1.39 (1.60-3.17); Alkaline Phosphatase 173 U/L (41-126); BUN/Creat Ratio 29.14 Ratio (12.00-20.00); Blood Urea Nitrogen 40.8 mg/dL (9.0-27.0); Calcium 8.8 mg/dL (8.7-10.3); Carbon Dioxide 21.6 mmol/L (20.0-27.5); Chloride 103 mmol/L (96-109); Globulin 2.3 g/dL (1.6-3.3); Glucose 112 mg/dL (70-110); Non-African American GFR(CKD) 36.9 (60.0-200.0); Potassium 5.1 mmol/L (3.5-5.5); Sodium 136 mmol/L (135-145); Total Bilirubin <0.15 mg/dL (0.30-1.20); Total Protein 5.5 g/dL (6.2-8.2)
[2021-09-27] MEDS: FERROUS SULFATE 325 MG TAB PO SCH (11:31)
--- NOTE | 2021-09-27 15:44 | P.PN ---
Subjective Progress Note Date: 09/27/21 This is a 76-year-old white female patient who is well-known to our service from multiple hospitalizations for recurrent aspiration pneumonia. Patient had a history of previous gastrectomy, chronic dysphagia, recurrent aspiration pneumonia, chronic malnutrition and failure to thrive, patient is maintained on TPN in addition to a soft diet by mouth. Patient also has history of chronic kidney disease stage III, hypothyroidism, migraine headaches, chronic pain syndrome, history of CVA, and history of PICC line infection and sepsis. Patient was recently hospitalized for recurrence of aspiration related pneumonia, falls at home following methadone dose increase, and acute on chronic kidney injury. Patient had persistent bilateral midlung opacities, patient had a PICC line inserted and prior hospitalizations for TPN infusion, and completed a course of IV Zosyn. Patient was referred to general surgery for possibility of jejunostomy tube insertion, however patient had previous gastrectomy at the [facility], and she was advised to follow-up with the [facility] on an outpatient basis. At this time she continues to eat by mouth, soft foods in the form of applesauce, and pudding in addition to TPN. She was discharged home on 09/10/2021 to complete a course of IV Zosyn. Patient states she completed her Zosyn 4 days ago, however she states that she continued to be congested, cough, and have intermittent chills and bilateral rib cage pain with coughing and moving. Denied any fever, but does admit to intermittent chills. She came into the emergency department for reevaluation on 09/23/2021. Chest x- ray shows multifocal bilateral areas of consolidation. Admission blood work shows normal white count of 10.2, hemoglobin of 10.2, sodium is 142, potassium is 3.7, chloride is 110, BUN of 17, creatinine is 1.31. Pro-calcitonin level was checked and is negative at 0.08, COVID-19 PCR and influenza A and B were both negative. Patient has been afebrile. She states she is coughing up some right greenish phlegm, no hemoptysis. Appears to be breathing fairly co mfortably, does not appear to be in any acute distress. She was restarted on Zosyn, blood cultures and sputum cultures have been sent. ID service has been consulted On 09/25/2022 patient seen in follow-up on medical surgical floor. Patient is awake and alert, in no acute distress, states still having pain on both sides of her ribs, exacerbated by coughing or deep breathing. At times she is able to bring up some greenish colored phlegm and specimen was sent for cultures. Patient remains on Zosyn for empiric antibiotic coverage for possibility of recurrent aspiration pneumonia. Vital signs stable, she remains on room air, she's been afebrile, blood pressure is been stable. No hemoptysis. No fever or chills. She is tolerating oral intake, she remains on soft diet and remains on TPN for nutritional supplementation. She's had no acute events overnight, the cultures have been sent, preliminary cultures show no growth, stool culture is pending, sputum culture is pending. Today's labs have been reviewed, urine sodium is 139, potassium is 5.0, chloride is 108, CO2 is 21, BUN is 17 and creatinine is 1.2. Pro-calcitonin level came back at 0.08, ID service is following. 09/26/2021, I'm seeing the patient for a follow-up. She is calm and comfortable on room air oxygen. I reviewed a series of chest x-rays and a CAT scan on this patient. Unfortunately, the patient continues to have persistent bilateral pulmonary infiltrates and consolidation nodules and this has been an ongoing problem since early 2020. There are areas of infiltration in the right and the patient has multiple variable sized nodules in the mid and lower lung zones and the patient was also noted to have a previous small left-sided pleural effusion. Large areas of consolidation were also seen in the left upper lobe and left lower lobe. There are also some small areas of cavitation scattered throughout the lung. The exact etiology for his ongoing pulmonary infiltration is not clear. The patient undergone previous bronchoscopy 2 in the microbial cultures have been essentially negative. As such, I think is important to do a further investigation. My recommendations for this patient is an indication of bronchoscopy, repeated bronchial lavage either same time. Biopsies to histologically evaluates these abnormal pulmonary infiltrates. The patient blood work shows a white cell count 4.3 with a hemoglobin of 11.3 and the creatinine is 1.3. ID is opted to put the patient IV Zosyn. The patient was in significant for nutritional support. She is on Lasix 20 mg by mouth daily and she is also on IV Solu-Medrol. In terms of pain control, the patient was switched to Percocet. on 09/27/2021 patient is seen in follow-up on medical surgical floor. Yesterday we discussed possibility of a navigational bronchoscopy with biopsies and bronchoalveolar lavage in view of persistent bilateral pulmonary infiltrates and consolidation and patient was agreeable to proceed, and she had been nothing by mouth after midnight. However today we had to cancel the procedure in view of endoscopy spot availability. this was explained to the patient, and this procedure can be completed early next week or even on outpatient basis. Clinically patient had remained stable, no worsening dyspnea, no fever or chills, no hemoptysis. No acute events overnight altered mentation. She remains on Zosyn for antibiotic coverage. Today's labs have been reviewed, white blood cell count is stable at 12.5, hemoglobin is 9.4, electrolytes are unremarkable,sputum culture showed Lesly albicans only, blood cultures have been negative, stool culture is negative Objective - Vital Signs Vital signs: Vital Signs Temp 98 F 09/27/21 12:20 Pulse 92 09/27/21 12:20 Resp 13 09/27/21 12:20 BP 144/76 09/27/21 12:20 Pulse Ox 97 09/27/21 12:20 FiO2 21 09/26/21 20:29 Intake & Output 09/26/21 09/27/21 09/27/21 18:59 06:59 18:59 Intake Total 600 Balance 600 Intake: IV 600 Mvi, Adult No.4 with Vit 600 K 10 ml Trace (Conc-1Ml/ Dose) 1 ml In Amino Acid 5%-D20w+Lytes*E* 1,000 ml @ 50 mls/hr IV .BY DURATION [facility] Rx#: [id number] Other: Voiding Method Toilet Toilet Toilet Bedside Commode Bedside Commode Bedside Commode # Voids 4 - Exam GENERAL EXAM: Alert, very pleasant, 76-year-old white female, cachectic, on room air pulse ox of 98% but appears to be in no acute distress, on room air co mfortable in no apparent distress. HEAD: Normocephalic/atraumatic. EYES: Normal reaction of pupils, equal size. Conjunctiva pink, sclera white. NOSE: Clear with pink turbinates. THROAT: No erythema or exudates. NECK: No masses, no JVD, no thyroid enlargement, no adenopathy. CHEST: No chest wall deformity. Symmetrical expansion. LUNGS: Equal air entry with no crackles, wheeze, rhonchi or dullness. CVS: Regular rate and rhythm, normal S1 and S2, no gallops, no murmurs, no rubs ABDOMEN: Soft, nontender. No hepatosplenomegaly, normal bowel sounds, no guarding or rigidity. EXTREMITIES: No clubbing, no edema, no cyanosis, 2+ pulses and upper and lower extremities. MUSCULOSKELETAL: Muscle strength and tone normal. SPINE: No scoliosis or deformity SKIN: No rashes CENTRAL NERVOUS SYSTEM: Alert and oriented -3. No focal deficits, tone is normal in all 4 extremities. PSYCHIATRIC: Alert and oriented -3. Appropriate affect. Intact judgment and insight. - Labs CBC & Chem 7: 09/28/21 07:40 09/29/21 06:13 Labs: Abnormal Lab Results - Last 24 Hours (Table) 09/27/21 09/27/21 Range/Units 07:55 07:55 WBC 12.53 H (4.50-10.00) X 10*3/uL RBC 3.50 L (4.10-5.20) X 10*6/uL Hgb 9.4 L (12.0-15.0) g/dL Hct 31.4 L (37.2-46.3) % MCH 26.9 L (27.0-32.0) pg MCHC 29.9 L (32.0-37.0) g/dL RDW 18.0 H (11.5-14.5) % MPV 9.0 L (9.5-12.2) fL Immature Gran # 0.07 H (0.00-0.04) X 10*3/uL Neutrophils # 9.26 H (1.80-7.70) X 10*3/uL BUN 40.8 H (9.0-27.0) mg/dL Est GFR (CKD-EPI)AfAm 42.8 L (60.0-200.0) Est GFR (CKD-EPI)NonAf 36.9 L (60.0-200.0) BUN/Creatinine Ratio 29.14 H (12.00-20.00) Ratio Glucose 112 H (70-110) mg/dL Total Bilirubin <0.15 L (0.30-1.20) mg/dL AST 11 L (13-35) U/L Alkaline Phosphatase 173 H (41-126) U/L Total Protein 5.5 L (6.2-8.2) g/dL Albumin 3.2 L (3.8-4.9) g/dL Albumin/Globulin Ratio 1.39 L (1.60-3.17) g/dL Microbiology - Last 24 Hours (Table) 09/25/21 01:33 Gram Stain - Final Sputum Sputum Culture - Final Lesly albicans 09/23/21 08:07 Blood Culture - Preliminary Blood No Growth after 96 hours 09/23/21 08:07 Blood Culture - Preliminary Blood No Growth after 96 hours 09/24/21 12:00 Stool Culture - Preliminary Stool Assessment and Plan Plan: #1. Bilateral rib pain, cough related to recurrent aspiration, patient is recovering from recent aspiration related pneumonia. COVID-19 PCR, influenza A and B were negative. Patient has completed a course of IV Zosyn. Chest x-ray showed multifocal bilateral areas of consolidation. Pro-calcitonin level is negative at 0.08 #2. Chronic pain syndrome, most recently on methadone for pain control #3. Chronic kidney disease stage III at baseline #4. Malnutrition and failure to thrive #5. Recurrent aspiration with multiple hospitalizations, patient is currently on TPN for nutritional support in addition to some oral feedings on soft diet #6. History of gastrectomy #7. Recent hospitalization for urinary tract infection, related to enterococcus faecalis #8. Chronic pain syndrome #9. Previous history of CVA #10. History of hypothyroidism #11. History of spinal stenosis and chronic back pain #12. History of chronic anemia of chronic disease #13. Anxiety/depression Plan: Continue current antibiotics we will cancel the bronchoscopy today Continue with medical treatment, continue with antibiotics, clinical patient is the same, no worsening dyspnea, she states her bilateral rib pain is improved Continue TPN for nutritional support, maintain aspiration precautions we can consider patient for bronchial with BAL and possible biopsies early next week or even outpatient basis I have personally seen and examined the patient, performed the documentation and the assessment and plan as written. Number of minutes spent on the visit: [10] I have personally seen and examined the patient and reviewed the documentation. I performed a joint evaluation with the nurse practitioner in this evaluation was done more than 20 minutes. I fully agree with the documentation above and the plan of care. Time with Patient: Less than 30
[2021-09-27] MEDS: ONDANSETRON 4 MG TAB PO PRN (17:22)
[2021-09-27] MEDS: MIRTAZAPINE 45 MG TABLET PO SCH (20:09)
--- NOTE | 2021-09-27 22:15 | P.PN ---
Subjective Progress Note Date: 09/26/21 Principal diagnosis: Pneumonia Patient is a 76-year-old female in this patient did have a history of gastrectomy short gut syndrome requiring TPN for the patient did have a PICC line with a history of recurrent aspiration pneumonia and PICC line infection this and completed a course of IV Zosyn, subsequently presented to hospital with increasing shortness of breath or cough with purulent sputum with the abnormal x-ray suggestive of pneumonia. On today's evaluation that is 09/26/2021, the patient remains to be afebrile, the patient is currently breathing comfortably on room air; the patient still complaining of bilateral lower rib cage pain but no worsening no vomiting no diarrhea Objective - Vital Signs Vital signs: Vital Signs Temp 97.7 F 09/26/21 11:27 Pulse 82 09/26/21 11:27 Resp 18 09/26/21 11:27 BP 135/78 09/26/21 11:27 Pulse Ox 97 09/26/21 11:27 FiO2 21 09/25/21 19:26 Intake & Output 09/25/21 09/26/21 09/26/21 18:59 06:59 18:59 Intake Total 650 1000 Balance 650 1000 Intake: Intake, IV Titration 650 460 Amount Amino Acid 5%-D20w+Lytes* 240 E* 1,000 ml @ 50 mls/hr IV .BY DURATION [facility] Rx#: [id number] Fat Emulsion 20% 500 ml @ 360 41.667 mls/hr IV Tu [facility] Rx#:[id number] Mvi, Adult No.4 with Vit 50 360 K 10 ml Trace (Conc-1Ml/ Dose) 1 ml In Amino Acid 5%-D20w+Lytes*E* 1,000 ml @ 30 mls/hr IV .Q24H [facility] Rx#:[id number] Piperacillin-Tazobactam 3 100 .375 gm In Sodium Chloride 0.9% 100 ml @ 25 mls/hr IVPB Q8HR [facility] Rx# :[id number] Oral 540 Other: Voiding Method Toilet Bedside Commode # Voids 3 - Exam GENERAL DESCRIPTION: An elderly female lying in bed in no distress RESPIRATORY SYSTEM: Unlabored breathing , decreased breath sounds at bases HEART: S1 S2 regular rate and rhythm , ABDOMEN: Soft , no tenderness EXTREMITIES: No edema feet - Labs CBC & Chem 7: 09/27/21 07:55 09/27/21 07:55 Labs: Abnormal Lab Results - Last 24 Hours (Table) 09/25/21 09/26/21 09/26/21 Range/Units 06:12 08:46 08:46 WBC 12.33 H (4.50-10.00) X 10*3/uL Hgb 11.3 L (12.0-15.0) g/dL Hct 36.6 L (37.2-46.3) % MCHC 30.9 L (32.0-37.0) g/dL RDW 17.8 H (11.5-14.5) % Plt Count 444 H (140-440) X 10*3/uL Immature Gran # 0.06 H (0.00-0.04) X 10*3/uL Neutrophils # 9.32 H (1.80-7.70) X 10*3/uL Est GFR (CKD-EPI)AfAm 46.8 L (60.0-200.0) Est GFR (CKD-EPI)NonAf 40.4 L (60.0-200.0) BUN/Creatinine Ratio 20.38 H (12.00-20.00) Ratio Glucose 177 H (70-110) mg/dL Total Bilirubin <0.15 L (0.30-1.20) mg/dL Alkaline Phosphatase 233 H (41-126) U/L Albumin 3.7 L (3.8-4.9) g/dL Albumin/Globulin Ratio 1.28 L (1.60-3.17) g/dL Triglycerides 181.00 H (0.00-149.00) mg/dL Microbiology - Last 24 Hours (Table) 09/23/21 08:07 Blood Culture - Preliminary Blood No Growth after 72 hours 09/23/21 08:07 Blood Culture - Preliminary Blood No Growth after 72 hours 09/25/21 01:33 Gram Stain - Preliminary Sputum Sputum Culture - Preliminary Assessment and Plan (1) Pneumonia Current Visit: Yes Status: Acute Code(s): J18.9 - PNEUMONIA, UNSPECIFIED ORGANISM SNOMED Code(s): 412641348 Plan: 1patient presented to hospital with increasing shortness of breath and cough with some greenish sputum in this patient did have a chest x-ray suggestive of pneumonia consolidation however the patient did not have any fever she did have normal white count and no hypoxemia satting 98% with all the clinical findings Velcro-based pneumonia however x-ray findings cannot be disregarded and a question of possible recurrent aspiration pneumonia with the patient noncom pliant with her diet, she was supposed to follow-up with the [facility] general surgical team for placement of the PEG tube which has not been done. 2 sputum has been collected for gram stain and culture which is currently pending. 3patient did have a normal procalcitonin and mildly elevated CRP currently on Zosyn, patient may benefit from bronchoscopy for better evaluation 4diarrhea has resolved Time with Patient: Less than 30
--- NOTE | 2021-09-27 22:17 | P.PN ---
Subjective Progress Note Date: 09/27/21 Principal diagnosis: Pneumonia Patient is a 76-year-old female in this patient did have a history of gastrectomy short gut syndrome requiring TPN for the patient did have a PICC line with a history of recurrent aspiration pneumonia and PICC line infection this and completed a course of IV Zosyn, subsequently presented to hospital with increasing shortness of breath or cough with purulent sputum with the abnormal x-ray suggestive of pneumonia. On today's evaluation that is 09/27/2021, the patient denies any fever or chills, she is currently breathing comfortably on room air. Patient is still complaining of cough but not bring up any sputum no nausea no vomiting no abdominal pain or diarrhea Objective - Vital Signs Vital signs: Vital Signs Temp 98 F 09/27/21 12:20 Pulse 92 09/27/21 12:20 Resp 13 09/27/21 12:20 BP 144/76 09/27/21 12:20 Pulse Ox 97 09/27/21 12:20 FiO2 21 09/26/21 20:29 Intake & Output 09/26/21 09/27/21 09/27/21 18:59 06:59 18:59 Intake Total 600 Balance 600 Intake: IV 600 Mvi, Adult No.4 with Vit 600 K 10 ml Trace (Conc-1Ml/ Dose) 1 ml In Amino Acid 5%-D20w+Lytes*E* 1,000 ml @ 50 mls/hr IV .BY DURATION [facility] Rx#: [id number] Other: Voiding Method Toilet Toilet Toilet Bedside Commode Bedside Commode Bedside Commode # Voids 4 - Exam GENERAL DESCRIPTION: An elderly female lying in bed in no distress RESPIRATORY SYSTEM: Unlabored breathing , decreased breath sounds at bases HEART: S1 S2 regular rate and rhythm , ABDOMEN: Soft , no tenderness EXTREMITIES: No edema feet - Labs CBC & Chem 7: 09/27/21 07:55 09/27/21 07:55 Labs: Abnormal Lab Results - Last 24 Hours (Table) 09/27/21 09/27/21 Range/Units 07:55 07:55 WBC 12.53 H (4.50-10.00) X 10*3/uL RBC 3.50 L (4.10-5.20) X 10*6/uL Hgb 9.4 L (12.0-15.0) g/dL Hct 31.4 L (37.2-46.3) % MCH 26.9 L (27.0-32.0) pg MCHC 29.9 L (32.0-37.0) g/dL RDW 18.0 H (11.5-14.5) % MPV 9.0 L (9.5-12.2) fL Immature Gran # 0.07 H (0.00-0.04) X 10*3/uL Neutrophils # 9.26 H (1.80-7.70) X 10*3/uL BUN 40.8 H (9.0-27.0) mg/dL Est GFR (CKD-EPI)AfAm 42.8 L (60.0-200.0) Est GFR (CKD-EPI)NonAf 36.9 L (60.0-200.0) BUN/Creatinine Ratio 29.14 H (12.00-20.00) Ratio Glucose 112 H (70-110) mg/dL Total Bilirubin <0.15 L (0.30-1.20) mg/dL AST 11 L (13-35) U/L Alkaline Phosphatase 173 H (41-126) U/L Total Protein 5.5 L (6.2-8.2) g/dL Albumin 3.2 L (3.8-4.9) g/dL Albumin/Globulin Ratio 1.39 L (1.60-3.17) g/dL Microbiology - Last 24 Hours (Table) 09/25/21 01:33 Gram Stain - Final Sputum Sputum Culture - Final Lesly albicans 09/23/21 08:07 Blood Culture - Preliminary Blood No Growth after 96 hours 09/23/21 08:07 Blood Culture - Preliminary Blood No Growth after 96 hours 09/24/21 12:00 Stool Culture - Preliminary Stool Assessment and Plan (1) Pneumonia Current Visit: Yes Status: Acute Code(s): J18.9 - PNEUMONIA, UNSPECIFIED ORGANISM SNOMED Code(s): 028446025 Plan: 1patient presented to hospital with increasing shortness of breath and cough with some greenish sputum in this patient did have a chest x-ray suggestive of pneumonia consolidation however the patient did not have any fever she did have normal white count and no hypoxemia satting 98% with all the clinical findings Velcro-based pneumonia however x-ray findings cannot be disregarded and a question of possible recurrent aspiration pneumonia with the patient noncompliant with her diet, she was supposed to follow-up with the [facility] general surgical team for placement of the PEG tube which has not been done. 2 sputum has been finalized as Lesly more likely colonizer 3patient has shown clinical Improvement and will continue with the Zosyn will benefit from bronchoscopy discussed with the pulmonary Time with Patient: Less than 30
[2021-09-28] MEDS: BUTALB/APAP/CAFF 50-325-40MG TAB PO PRN ×4 (04:41→21:25)
[2021-09-28] MEDS: oxyCODONE-APAP 5-325MG 1 EACH TAB PO PRN ×3 (05:29→16:46)
[2021-09-28] MEDS: LEVOTHYROXINE 100 MCG TAB PO SCH (05:30)
[2021-09-28] MEDS: METHADONE 10 MG TAB PO SCH ×2 (08:14→20:05)
[2021-09-28] MEDS: hydrOXYzine pamoate 25 MG CAP PO SCH ×3 (08:15→21:24)
[2021-09-28] MEDS: ASPIRIN 81 MG PO SCH (08:15)
[2021-09-28] MEDS: SODIUM BICARBONATE TAB 650 MG TAB PO SCH (08:15)
[2021-09-28] MEDS: ENOXAPARIN 30 MG/0.3 ML SYRINGE SQ SCH (08:16)
[2021-09-28] MEDS: busPIRone HCl 10 MG TAB PO SCH ×2 (08:16→20:06)
[2021-09-28] MEDS: PANTOPRAZOLE 40 MG TABLET PO SCH (08:17)
[2021-09-28] MEDS: buPROPion XL 150 MG TAB.ER.24H PO SCH (08:17)
[2021-09-28] MEDS: PIPERACILLIN-TAZOBACTAM 3.375 GM in SODIUM CHLORIDE 0.9% 100 ML IVPB SCH ×2 (08:17→15:12)
[2021-09-28] MEDS: buPROPion XL 300 MG TAB.ER.24H PO SCH (08:17)
[2021-09-28] MEDS: methylPREDNISolone SOD SUCCI 40 MG/ML 1 ML VIAL IV SCH ×2 (08:18→20:05)
[2021-09-28 08:28] LABS: ALT 12 U/L (4-34); AST 21 U/L (14-36); African American GFR (CKD) 45 (>60 ml/min/1.73 sqM); Albumin 3.2 g/dL (3.5-5.0); Albumin/Globulin Ratio 1.2; Alkaline Phosphatase 135 U/L (38-126); Anion Gap 8 mmol/L; Blood Urea Nitrogen 51 mg/dL (7-17); Calcium 8.7 mg/dL (8.4-10.2); Carbon Dioxide 24 mmol/L (22-30); Chloride 105 mmol/L (98-107); Globulin 2.6 g/dL; Glucose 98 mg/dL (74-99); Magnesium 2.1 mg/dL (1.6-2.3); Non-African American GFR(CKD) 39 (>60 ml/min/1.73 sqM); Phosphorus 4.1 mg/dL (2.5-4.5); Potassium 5.2 mmol/L (3.5-5.1); Sodium 137 mmol/L (137-145); Total Bilirubin 0.2 mg/dL (0.2-1.3); Total Protein 5.8 g/dL (6.3-8.2)
[2021-09-28] MEDS: SYMBICORT 160-4.5 MCG INHALER INHALATION SCH ×2 (09:13→19:10)
[2021-09-28 11:26] LABS: Basophils # (A) 0.06 X 10*3/uL (0.00-0.10); Basophils % (A) 0.5 %; Eosinophils # (A) 0.43 X 10*3/uL (0.04-0.35); Eosinophils % (A) 3.9 %; HCT 29.2 % (37.2-46.3); Immature Grans, Automated 0.5 %; Lymphocytes # (A) 1.93 X 10*3/uL (0.90-5.00); Lymphocytes % (A) 17.5 %; MCH 27.5 pg (27.0-32.0); MCHC 30.8 g/dL (32.0-37.0); MCV 89.3 fL (80.0-97.0); Mean Platelet Volume 9.4 fL (9.5-12.2); Monocytes # (A) 1.03 X 10*3/uL (0.20-1.00); Monocytes % (A) 9.3 %; NRBC Per 100 WBC 0 /100 WBCS (0.0-0.0); Neutrophils # (A) 7.55 X 10*3/uL (1.80-7.70); Neutrophils % (A) 68.3 %; Platelet Count 345 X 10*3/uL (140-440); RBC 3.27 X 10*6/uL (4.10-5.20); RDW 17.8 % (11.5-14.5); WBC 11.05 X 10*3/uL (4.50-10.00)
[2021-09-28] MEDS: FERROUS SULFATE 325 MG TAB PO SCH (12:19)
[2021-09-28] MEDS: ONDANSETRON 4 MG TAB PO PRN (12:21)
--- NOTE | 2021-09-28 12:32 | P.PN ---
Subjective Progress Note Date: 09/28/21 Progress Note Date: 09/27/21 This is a 76-year-old white female patient who is well-known to our service from multiple hospitalizations for recurrent aspiration pneumonia. Patient had a history of previous gastrectomy, chronic dysphagia, recurrent aspiration pneumonia, chronic malnutrition and failure to thrive, patient is maintained on TPN in addition to a soft diet by mouth. Patient also has history of chronic kidney disease stage III, hypothyroidism, migraine headaches, chronic pain syndrome, history of CVA, and history of PICC line infection and sepsis. Patient was recently hospitalized for recurrence of aspiration related pneumonia, falls at home following methadone dose increase, and acute on chronic kidney injury. Patient had persistent bilateral midlung opacities, patient had a PICC line inserted and prior hospitalizations for TPN infusion, and completed a course of IV Zosyn. Patient was referred to general surgery for possibility of jejunostomy tube insertion, however patient had previous gastrectomy at the [facility], and she was advised to follow-up with the [facility] on an outpatient basis. At this time she continues to eat by mouth, soft foods in the form of applesauce, and pudding in addition to TPN. She was discharged home on 09/10/2021 to complete a course of IV Zosyn. Patient states she completed her Zosyn 4 days ago, however she states that she continued to be congested, cough, and have intermittent chills and bilateral rib cage pain with coughing and moving. Denied any fever, but does admit to intermittent chills. She came into the emergency department for reevaluation on 09/23/2021. Chest x- ray shows multifocal bilateral areas of consolidation. Admission blood work shows normal white count of 10.2, hemoglobin of 10.2, sodium is 142, potassium is 3.7, chloride is 110, BUN of 17, creatinine is 1.31. Pro-calcitonin level was checked and is negative at 0.08, COVID-19 PCR and influenza A and B were both negative. Patient has been afebrile. She states she is coughing up some right greenish phlegm, no hemoptysis. Appears to be breathing fairly comfortably, does not appear to be in any acute distress. She was restarted on Zosyn, blood cultures and sputum cultures have been sent. ID service has been consulted On 09/25/2022 patient seen in follow-up on medical surgical floor. Patient is awake and alert, in no acute distress, states still having pain on both sides of her ribs, exacerbated by coughing or deep breathing. At times she is able to bring up some greenish colored phlegm and specimen was sent for cultures. Patient remains on Zosyn for empiric antibiotic coverage for possibility of recurrent aspiration pneumonia. Vital signs stable, she remains on room air, she's been afebrile, blood pressure is been stable. No hemoptysis. No fever or chills. She is tolerating oral intake, she remains on soft diet and remains on TPN for nutritional supplementation. She's had no acute events overnight, the cultures have been sent, preliminary cultures show no growth, stool culture is pending, sputum culture is pending. Today's labs have been reviewed, urine sodium is 139, potassium is 5.0, chloride is 108, CO2 is 21, BUN is 17 and creatinine is 1.2. Pro-calcitonin level came back at 0.08, ID service is following. 09/26/2021, I'm seeing the patient for a follow-up. She is calm and comfortable on room air oxygen. I reviewed a series of chest x-rays and a CAT scan on this patient. Unfortunately, the patient continues to have persistent bilateral pulmonary infiltrates and consolidation nodules and this has been an ongoing problem since early 2020. There are areas of infiltration in the right and the patient has multiple variable sized nodules in the mid and lower lung zones and the patient was also noted to have a previous small left-sided pleural effusion. Large areas of consolidation were also seen in the left upper lobe and left lower lobe. There are also some small areas of cavitation scattered throughout the lung. The exact etiology for his ongoing pulmonary infiltration is not clear. The patient undergone previous bronchoscopy 2 in the microbial cultures have been essentially negative. As such, I think is important to do a further investigation. My recommendations for this patient is an indication of bronchoscopy, repeated bronchial lavage either same time. Biopsies to histologically evaluates these abnormal pulmonary infiltrates. The patient blood work shows a white cell count 4.3 with a hemoglobin of 11.3 and the creatinine is 1.3. ID is opted to put the patient IV Zosyn. The patient was in significant for nutritional support. She is on Lasix 20 mg by mouth daily and she is also on IV Solu-Medrol. In terms of pain control, the patient was switched to Percocet. on 09/27/2021 patient is seen in follow-up on medical surgical floor. Yesterday we discussed possibility of a navigational bronchoscopy with biopsies and bronchoalveolar lavage in view of persistent bilateral pulmonary infiltrates and consolidation and patient was agreeable to proceed, and she had been nothing by mouth after midnight. However today we had to cancel the procedure in view of endoscopy spot availability. this was explained to the patient, and this procedure can be completed early next week or even on outpatient basis. Clinically patient had remained stable, no worsening dyspnea, no fever or chills, no hemoptysis. No acute events overnight altered mentation. She remains on Zosyn for antibiotic coverage. Today's labs have been reviewed, white blood cell count is stable at 12.5, hemoglobin is 9.4, electrolytes are unremarkable,sputum culture showed Lesly albicans only, blood cultures have been negative, stool culture is negative 09/28/2021, the patient is stable on room air oxygen. I had planned to do a bronchoscopy this patient was transferred to biopsy and the bronchioloalveolar lavage. Nevertheless, due to timing issues, I was unable to schedule the case for yesterday. This will be done later stage on outpatient basis. Otherwise, the patient is doing well. No specific complaints to she remains on TPN for nutritional support. She remains on IV Zosyn. Blood work essentially stable with a white cell count of 11 hemoglobin of 9 and a creatinine of 1.3 which is also stable. Objective - Vital Signs Vital signs: Vital Signs Temp 98.2 F 09/28/21 04:42 Pulse 100 09/28/21 08:00 Resp 16 09/28/21 04:42 BP 122/64 09/28/21 04:42 Pulse Ox 96 09/28/21 04:42 FiO2 21 09/27/21 20:01 Intake & Output 09/27/21 09/28/21 09/28/21 18:59 06:59 18:59 Intake Total 700 Balance 700 Weight 39.463 kg Intake: Intake, IV Titration 700 Amount Mvi, Adult No.4 with Vit 600 K 10 ml Trace (Conc-1Ml/ Dose) 1 ml Sodium Acetate 20 meq Potassium Chloride 10 meq Magnesium Sulfate gm 0.5 gm Calcium Gluconate 1 gm Sodium Phosphate 15 mmol In Amino Acids 5 %/ Dextrose 20 % 1,000 ml @ 50 mls/hr IV .BY DURATION [facility] Rx#:[id number] Piperacillin-Tazobactam 3 100 .375 gm In Sodium Chloride 0.9% 100 ml @ 25 mls/hr IVPB Q8HR [facility] Rx# :[id number] Other: Voiding Method Toilet Bedside Commode Bedside Commode # Voids 4 # Bowel Movements 1 - Exam GENERAL EXAM: Alert, very pleasant, 76-year-old white female, cachectic, on room air pulse ox of 98% but appears to be in no acute distress, on room air comfortable in no apparent distress. HEAD: Normocephalic/atraumatic. EYES: Normal reaction of pupils, equal size. Conjunctiva pink, sclera white. NOSE: Clear with pink turbinates. THROAT: No erythema or exudates. NECK: No masses, no JVD, no thyroid enlargement, no adenopathy. CHEST: No chest wall deformity. Symmetrical expansion. LUNGS: Equal air entry with no crackles, wheeze, rhonchi or dullness. CVS: Regular rate and rhythm, normal S1 and S2, no gallops, no murmurs, no rubs ABDOMEN: Soft, nontender. No hepatosplenomegaly, normal bowel sounds, no guarding or rigidity. EXTREMITIES: No clubbing, no edema, no cyanosis, 2+ pulses and upper and lower extremities. MUSCULOSKELETAL: Muscle strength and tone normal. SPINE: No scoliosis or deformity SKIN: No rashes CENTRAL NERVOUS SYSTEM: Alert and oriented -3. No focal deficits, tone is normal in all 4 extremities. PSYCHIATRIC: Alert and oriented -3. Appropriate affect. Intact judgment and insight. - Labs CBC & Chem 7: 09/28/21 07:40 09/28/21 07:40 Labs: Abnormal Lab Results - Last 24 Hours (Table) 09/28/21 09/28/21 Range/Units 07:40 07:40 WBC 11.05 H (4.50-10.00) X 10*3/uL RBC 3.27 L (4.10-5.20) X 10*6/uL Hgb 9.0 L (12.0-15.0) g/dL Hct 29.2 L (37.2-46.3) % MCHC 30.8 L (32.0-37.0) g/dL RDW 17.8 H (11.5-14.5) % MPV 9.4 L (9.5-12.2) fL Immature Gran # 0.05 H (0.00-0.04) X 10*3/uL Monocytes # 1.03 H (0.20-1.00) X 10*3/uL Eosinophils # 0.43 H (0.04-0.35) X 10*3/uL Potassium 5.2 H (3.5-5.1) mmol/L BUN 51 H (7-17) mg/dL Creatinine 1.35 H (0.52-1.04) mg/dL Alkaline Phosphatase 135 H (38-126) U/L Total Protein 5.8 L (6.3-8.2) g/dL Albumin 3.2 L (3.5-5.0) g/dL Microbiology - Last 24 Hours (Table) 09/23/21 08:07 Blood Culture - Preliminary Blood No Growth after 120 hours 09/23/21 08:07 Blood Culture - Preliminary Blood No Growth after 120 hours 09/24/21 12:00 Stool Culture - Final Stool 09/25/21 01:33 Gram Stain - Final Sputum Sputum Culture - Final Lesly albicans Assessment and Plan Plan: #1. Bilateral rib pain, cough related to recurrent aspiration, patient is recovering from recent aspiration related pneumonia. COVID-19 PCR, influenza A and B were negative. Patient has completed a course of IV Zosyn. Chest x-ray showed multifocal bilateral areas of consolidation. Pro-calcitonin level is negative at 0.08. The exact nature of this pulmonary infiltrates are not known. Those have been waxing and waning in pulmonary infiltrates with large areas of consolidation and some early cavitation. Previous bronchioloalveolar lavage 2. May need a bronchoscopy which has bronchial biopsies for histologic diagnosis. #2. Chronic pain syndrome, most recently on methadone for pain control #3. Chronic kidney disease stage III at baseline #4. Malnutrition and failure to thrive #5. Recurrent aspiration with multiple hospitalizations, patient is currently on TPN for nutritional support in addition to some oral feedings on soft diet #6. History of gastrectomy #7. Recent hospitalization for urinary tract infection, related to enterococcus faecalis #8. Chronic pain syndrome #9. Previous history of CVA #10. History of hypothyroidism #11. History of spinal stenosis and chronic back pain #12. History of chronic anemia of chronic disease #13. Anxiety/depression Plan: Clinically stable Continue same treatment We'll plan to do a bronchoscopy and transbronchial biopsy on outpatient basis Patient is currently on room air oxygen. She stable.
--- NOTE | 2021-09-28 14:11 | P.PN ---
Subjective Progress Note Date: 09/28/21 Principal diagnosis: Pneumonia Patient is a 76-year-old female in this patient did have a history of gastrectomy short gut syndrome requiring TPN for the patient did have a PICC line with a history of recurrent aspiration pneumonia and PICC line infection this and completed a course of IV Zosyn, subsequently presented to hospital with increasing shortness of breath or cough with purulent sputum with the abnormal x-ray suggestive of pneumonia. On today's evaluation that is 09/28/2021, the patient denies any fever or chills, the patient is breathing comfortably on room air. Patient continued to have a cough but not bringing up Any sputum, no nausea no vomiting no abdominal pain no diarrhea Objective - Vital Signs Vital signs: Vital Signs Temp 98.1 F 09/28/21 11:40 Pulse 84 09/28/21 11:40 Resp 16 09/28/21 11:40 BP 129/77 09/28/21 11:40 Pulse Ox 97 09/28/21 11:40 FiO2 21 09/27/21 20:01 Intake & Output 09/27/21 09/28/21 09/28/21 18:59 06:59 18:59 Intake Total 700 Balance 700 Weight 39.463 kg Intake: Intake, IV Titration 700 Amount Mvi, Adult No.4 with Vit 600 K 10 ml Trace (Conc-1Ml/ Dose) 1 ml Sodium Acetate 20 meq Potassium Chloride 10 meq Magnesium Sulfate gm 0.5 gm Calcium Gluconate 1 gm Sodium Phosphate 15 mmol In Amino Acids 5 %/ Dextrose 20 % 1,000 ml @ 50 mls/hr IV .BY DURATION [facility] Rx#:[id number] Piperacillin-Tazobactam 3 100 .375 gm In Sodium Chloride 0.9% 100 ml @ 25 mls/hr IVPB Q8HR [facility] Rx# :[id number] Other: Voiding Method Toilet Bedside Commode Bedside Commode # Voids 4 # Bowel Movements 1 - Exam GENERAL DESCRIPTION: An elderly female lying in bed in no distress RESPIRATORY SYSTEM: Unlabored breathing , decreased breath sounds at bases HEART: S1 S2 regular rate and rhythm , ABDOMEN: Soft , no tenderness EXTREMITIES: No edema feet - Labs CBC & Chem 7: 09/28/21 07:40 09/28/21 07:40 Labs: Abnormal Lab Results - Last 24 Hours (Table) 09/28/21 09/28/21 Range/Units 07:40 07:40 WBC 11.05 H (4.50-10.00) X 10*3/uL RBC 3.27 L (4.10-5.20) X 10*6/uL Hgb 9.0 L (12.0-15.0) g/dL Hct 29.2 L (37.2-46.3) % MCHC 30.8 L (32.0-37.0) g/dL RDW 17.8 H (11.5-14.5) % MPV 9.4 L (9.5-12.2) fL Immature Gran # 0.05 H (0.00-0.04) X 10*3/uL Monocytes # 1.03 H (0.20-1.00) X 10*3/uL Eosinophils # 0.43 H (0.04-0.35) X 10*3/uL Potassium 5.2 H (3.5-5.1) mmol/L BUN 51 H (7-17) mg/dL Creatinine 1.35 H (0.52-1.04) mg/dL Alkaline Phosphatase 135 H (38-126) U/L Total Protein 5.8 L (6.3-8.2) g/dL Albumin 3.2 L (3.5-5.0) g/dL Microbiology - Last 24 Hours (Table) 09/23/21 08:07 Blood Culture - Preliminary Blood No Growth after 120 hours 09/23/21 08:07 Blood Culture - Preliminary Blood No Growth after 120 hours 09/24/21 12:00 Stool Culture - Final Stool 09/25/21 01:33 Gram Stain - Final Sputum Sputum Culture - Final Lesly albicans Assessment and Plan (1) Pneumonia Current Visit: Yes Status: Acute Code(s): J18.9 - PNEUMONIA, UNSPECIFIED ORGANISM SNOMED Code(s): 969967754 Plan: 1patient presented to hospital with increasing shortness of breath and cough with some greenish sputum in this patient did have a chest x-ray suggestive of pneumonia consolidation however the patient did not have any fever she did have normal white count and no hypoxemia satting 98% with all the clinical findings Velcro-based pneumonia however x-ray findings cannot be disregarded and a question of possible recurrent aspiration pneumonia with the patient noncompliant with her diet, she was supposed to follow-up with the of general surgical team for placement of the PEG tube which has not been done. 2 sputum has been finalized as Lesly more likely colonizer 3patient is slowly clinically improving and will continue with the Zosyn will benefit from bronchoscopy which will be scheduled per pulmonary continue supportive care Time with Patient: Less than 30
[2021-09-28] MEDS: MAGNESIUM SULFATE IV SCH ×8 (15:29)
[2021-09-28] MEDS: [UNRECOGNIZED DRUG - OTHER] IV SCH ×8 (15:29)
[2021-09-28] MEDS: POTASSIUM CHLORIDE IV SCH ×8 (15:29)
[2021-09-28] MEDS: SODIUM ACETATE IV SCH ×8 (15:29)
[2021-09-28] MEDS: MIRTAZAPINE 45 MG TABLET PO SCH (20:05)
[2021-09-29] MEDS: oxyCODONE-APAP 5-325MG 1 EACH TAB PO PRN ×3 (05:11→17:55)
[2021-09-29] MEDS: LEVOTHYROXINE 100 MCG TAB PO SCH (05:11)
[2021-09-29] MEDS: BUTALB/APAP/CAFF 50-325-40MG TAB PO PRN ×4 (05:53→23:17)
[2021-09-29 06:40] LABS: ALT 15 U/L (4-34); AST 21 U/L (14-36); African American GFR (CKD) 44 (>60 ml/min/1.73 sqM); Albumin 3.3 g/dL (3.5-5.0); Albumin/Globulin Ratio 1.2; Alkaline Phosphatase 127 U/L (38-126); Anion Gap 7 mmol/L; Blood Urea Nitrogen 50 mg/dL (7-17); Calcium 8.9 mg/dL (8.4-10.2); Carbon Dioxide 26 mmol/L (22-30); Chloride 105 mmol/L (98-107); Globulin 2.7 g/dL; Glucose 109 mg/dL (74-99); Magnesium 2.1 mg/dL (1.6-2.3); Non-African American GFR(CKD) 38 (>60 ml/min/1.73 sqM); Phosphorus 4.1 mg/dL (2.5-4.5); Potassium 4.7 mmol/L (3.5-5.1); Sodium 138 mmol/L (137-145); Total Bilirubin 0.2 mg/dL (0.2-1.3)
[2021-09-29] MEDS: SYMBICORT 160-4.5 MCG INHALER INHALATION SCH ×2 (07:49→19:37)
[2021-09-29] MEDS: methylPREDNISolone SOD SUCCI 40 MG/ML 1 ML VIAL IV SCH ×2 (08:09→20:34)
[2021-09-29] MEDS: hydrOXYzine pamoate 25 MG CAP PO SCH ×3 (08:10→23:26)
[2021-09-29] MEDS: busPIRone HCl 10 MG TAB PO SCH ×2 (08:10→20:34)
[2021-09-29] MEDS: FERROUS SULFATE 325 MG TAB PO SCH (08:10)
[2021-09-29] MEDS: SODIUM BICARBONATE TAB 650 MG TAB PO SCH (08:11)
[2021-09-29] MEDS: buPROPion XL 300 MG TAB.ER.24H PO SCH (08:11)
[2021-09-29] MEDS: ASPIRIN 81 MG PO SCH (08:11)
[2021-09-29] MEDS: PANTOPRAZOLE 40 MG TABLET PO SCH (08:11)
[2021-09-29] MEDS: buPROPion XL 150 MG TAB.ER.24H PO SCH (08:11)
[2021-09-29] MEDS: METHADONE 10 MG TAB PO SCH ×2 (08:11→20:34)
[2021-09-29] MEDS: ENOXAPARIN 30 MG/0.3 ML SYRINGE SQ SCH (08:12)
--- NOTE | 2021-09-29 10:11 | P.PN ---
Subjective Progress Note Date: 09/29/21 Louise Sutton, is a 76-year-old female who presented to [facility] emergency room with a chief complaint of worsening cough and chest congestion She was evaluated in the emergency room vital examination on presentation revealed a temperature of 97.8 pulse 82 respiration 18 blood pressure 141/88 pulse ox 99% on room air Laboratory data revealed a white blood count of 10.2 hemoglobin 10.2 platelet count 470 sodium 142 potassium 3.7 chloride 110 CO2 22 BUN 17 creatinine 1.31 glucose level 101 COVID-19 PCR was negative influenza A and B testing were negative Testing in the emergency room revealed chest x-ray done in the emergency room revealed evidence of pneumonic consolidations with patchy air space consolidation in the mid lung calixto that are worse than previous x-ray Patient was admitted to medical floor for further evaluation and treatment On 09/24/2021 patient was seen and examined on the medical floor she is alert and oriented 3 in no apparent distress she is complaining of cough for and complaining of pain in the middle of her back radiating to lower ribs area otherwise she denies any complaints there is no fever or chills no headache or dizziness no chest pain no nausea or vomiting no abdominal pain no diarrhea and no urinary symptoms On 09/25/2021 patient is alert and oriented 3. Patient remains on IV Zosyn. Pulmonary and infectious disease services are following. Current vitals temp 98.3, heart rate 90, respiratory rate 20, blood pressure 128/70 with a pulse ox of 97% on room air On 09/26/2021 patient was seen and examined on the medical floor she is alert and oriented 3 in no apparent distress there is no fever or chills no headache or dizziness no chest pain no shortness of breath she is still complaining of cough and pain in the lower ribs area when she coughs no nausea or vomiting no abdominal pain no diarrhea and no urinary symptoms. Input from pulmonary reviewed patient is scheduled for bronchoscopy with possible biopsy tomorrow, continue with current medications at this time continue with current pured diet for pleasure feeding continue with TPN On 09/27/2021 patient is alert and oriented 3. Tentative plans for possible bronchoscopy today per pulmonary. Current vital signs temp 97.3, heart rate 79, respiratory 18, blood pressure 120/73 with a pulse ox of 98% on room air. Patient remains on IV Zosyn. Pulmonary and infectious disease services are following On 09/29/2021 patient is alert and oriented 3. Per pulmonary services bronchoscopy now to be scheduled outpatient. Patient remains on IV steroids. Pulmonary and infectious disease services are following. Current vital signs temp 98.0, heart rate 89, respiratory rate 18, blood pressure 147/70 with pulse of 97% on room air Objective - Vital Signs Vital signs: Vital Signs Temp 98.0 F 09/29/21 04:37 Pulse 91 09/29/21 08:17 Resp 18 09/29/21 04:37 BP 144/67 09/29/21 08:17 Pulse Ox 97 09/29/21 04:37 FiO2 21 09/27/21 20:01 Intake & Output 09/28/21 09/29/21 09/29/21 18:59 06:59 18:59 Intake Total 3380 650 Output Total 2 Balance 3380 648 Intake: Intake, IV Titration 800 600 Amount Mvi, Adult No.4 with Vit 600 600 K 10 ml Trace (Conc-1Ml/ Dose) 1 ml Sodium Acetate 20 meq Potassium Chloride 6 meq Magnesium Sulfate gm 0.5 gm Calcium Gluconate 1 gm Sodium Phosphate 9 mmol In Amino Acids 5 %/Dextrose 20 % 1,000 ml @ 50 mls/hr IV . BY D[facility] Rx#: [id number] Piperacillin-Tazobactam 3 200 .375 gm In Sodium Chloride 0.9% 100 ml @ 25 mls/hr IVPB Q8HR [facility] Rx# :[id number] Oral 2580 50 Output: Stool 2 Other: Voiding Method Bedside Commode # Voids 4 3 1 # Bowel Movements 0 2 - Exam In general patient is alert and oriented x 3 in no distress HEENT head normocephalic and atraumatic Neck is supple no JVD no goiter no lymphadenopathy no carotid bruit Chest examination reveals a scattered crackles crackles no wheezing Cardiac exam reveals regular heart sounds S1 and S2 no gallops no murmurs Abdomen is soft nontender no organomegaly with normal bowel sounds Extremity exam reveals no edema no cyanosis or clubbing Neurological examination reveals no gross focal deficits - Labs CBC & Chem 7: 09/28/21 07:40 09/29/21 06:13 Labs: Abnormal Lab Results - Last 24 Hours (Table) 09/28/21 09/29/21 Range/Units 07:40 06:13 WBC 11.05 H (4.50-10.00) X 10*3/uL RBC 3.27 L (4.10-5.20) X 10*6/uL Hgb 9.0 L (12.0-15.0) g/dL Hct 29.2 L (37.2-46.3) % MCHC 30.8 L (32.0-37.0) g/dL RDW 17.8 H (11.5-14.5) % MPV 9.4 L (9.5-12.2) fL Immature Gran # 0.05 H (0.00-0.04) X 10*3/uL Monocytes # 1.03 H (0.20-1.00) X 10*3/uL Eosinophils # 0.43 H (0.04-0.35) X 10*3/uL BUN 50 H (7-17) mg/dL Creatinine 1.37 H (0.52-1.04) mg/dL Glucose 109 H (74-99) mg/dL Alkaline Phosphatase 127 H (38-126) U/L Total Protein 6.0 L (6.3-8.2) g/dL Albumin 3.3 L (3.5-5.0) g/dL Microbiology - Last 24 Hours (Table) 09/23/21 08:07 Blood Culture - Preliminary Blood No Growth after 120 hours 09/23/21 08:07 Blood Culture - Preliminary Blood No Growth after 120 hours Assessment and Plan Plan: Bilateral pneumonia, at this time patient was started on IV Zosyn in the emergency room, will continue with the same, blood culture and sputum culture ordered, infectious disease consultation was requested. Previous history of multiple episodes of aspiration pneumonia History of gastrectomy Failure to thrive with severe weight on agent is dependent on TPN Underlying history of hypothyroidism Underlying history of chronic back pain Underlying history of chronic kidney disease Previous history of stroke in the past Underlying history of depression and anxiety disorder She remains on IV steroids Per pulmonary plans for outpatient bronchoscopy Home medications reviewed and reordered. For DVT prophylaxis acute Lovenox Consult nutrition for continuation of TPN Small amounts of pured diet for pleasure eating Prognosis is guarded
[2021-09-29] MEDS: [UNRECOGNIZED DRUG - OTHER] IV SCH ×8 (11:50)
[2021-09-29] MEDS: MAGNESIUM SULFATE IV SCH ×8 (11:50)
[2021-09-29] MEDS: SODIUM ACETATE IV SCH ×8 (11:50)
[2021-09-29] MEDS: POTASSIUM CHLORIDE IV SCH ×8 (11:50)
--- NOTE | 2021-09-29 13:57 | P.PN ---
Subjective Progress Note Date: 09/29/21 This is a 76-year-old white female patient who is well-known to our service from multiple hospitalizations for recurrent aspiration pneumonia. Patient had a history of previous gastrectomy, chronic dysphagia, recurrent aspiration pneumonia, chronic malnutrition and failure to thrive, patient is maintained on TPN in addition to a soft diet by mouth. Patient also has history of chronic kidney disease stage III, hypothyroidism, migraine headaches, chronic pain syndrome, history of CVA, and history of PICC line infection and sepsis. Patient was recently hospitalized for recurrence of aspiration related pneumonia, falls at home following methadone dose increase, and acute on chronic kidney injury. Patient had persistent bilateral midlung opacities, patient had a PICC line inserted and prior hospitalizations for TPN infusion, and completed a course of IV Zosyn. Patient was referred to general surgery for possibility of jejunostomy tube insertion, however patient had previous gastrectomy at the [facility], and she was advised to follow-up with the [facility] on an outpatient basis. At this time she continues to eat by mouth, soft foods in the form of applesauce, and pudding in addition to TPN. She was discharged home on 09/10/2021 to complete a course of IV Zosyn. Patient states she completed her Zosyn 4 days ago, however she states that she continued to be congested, cough, and have intermittent chills and bilateral rib cage pain with coughing and moving. Denied any fever, but does admit to intermittent chills. She came into the emergency department for reevaluation on 09/23/2021. Chest x- ray shows multifocal bilateral areas of consolidation. Admission blood work shows normal white count of 10.2, hemoglobin of 10.2, sodium is 142, potassium is 3.7, chloride is 110, BUN of 17, creatinine is 1.31. Pro-calcitonin level was checked and is negative at 0.08, COVID-19 PCR and influenza A and B were both negative. Patient has been afebrile. She states she is coughing up some right greenish phlegm, no hemoptysis. Appears to be breathing fairly co mfortably, does not appear to be in any acute distress. She was restarted on Zosyn, blood cultures and sputum cultures have been sent. ID service has been consulted On 09/25/2022 patient seen in follow-up on medical surgical floor. Patient is awake and alert, in no acute distress, states still having pain on both sides of her ribs, exacerbated by coughing or deep breathing. At times she is able to bring up some greenish colored phlegm and specimen was sent for cultures. Patient remains on Zosyn for empiric antibiotic coverage for possibility of recurrent aspiration pneumonia. Vital signs stable, she remains on room air, she's been afebrile, blood pressure is been stable. No hemoptysis. No fever or chills. She is tolerating oral intake, she remains on soft diet and remains on TPN for nutritional supplementation. She's had no acute events overnight, the cultures have been sent, preliminary cultures show no growth, stool culture is pending, sputum culture is pending. Today's labs have been reviewed, urine sodium is 139, potassium is 5.0, chloride is 108, CO2 is 21, BUN is 17 and creatinine is 1.2. Pro-calcitonin level came back at 0.08, ID service is following. 09/26/2021, I'm seeing the patient for a follow-up. She is calm and comfortable on room air oxygen. I reviewed a series of chest x-rays and a CAT scan on this patient. Unfortunately, the patient continues to have persistent bilateral pulmonary infiltrates and consolidation nodules and this has been an ongoing problem since early 2020. There are areas of infiltration in the right and the patient has multiple variable sized nodules in the mid and lower lung zones and the patient was also noted to have a previous small left-sided pleural effusion. Large areas of consolidation were also seen in the left upper lobe and left lower lobe. There are also some small areas of cavitation scattered throughout the lung. The exact etiology for his ongoing pulmonary infiltration is not clear. The patient undergone previous bronchoscopy 2 in the microbial cultures have been essentially negative. As such, I think is important to do a further investigation. My recommendations for this patient is an indication of bronchoscopy, repeated bronchial lavage either same time. Biopsies to histologically evaluates these abnormal pulmonary infiltrates. The patient blood work shows a white cell count 4.3 with a hemoglobin of 11.3 and the creatinine is 1.3. ID is opted to put the patient IV Zosyn. The patient was in significant for nutritional support. She is on Lasix 20 mg by mouth daily and she is also on IV Solu-Medrol. In terms of pain control, the patient was switched to Percocet. on 09/28/2021 patient is seen in follow-up on medical surgical floor. Yesterday we discussed possibility of a navigational bronchoscopy with biopsies and bronchoalveolar lavage in view of persistent bilateral pulmonary infiltrates and consolidation and patient was agreeable to proceed, and she had been nothing by mouth after midnight. However today we had to cancel the procedure in view of endoscopy spot availability. this was explained to the patient, and this procedure can be completed early next week or even on outpatient basis. Clinically patient had remained stable, no worsening dyspnea, no fever or chills, no hemoptysis. No acute events overnight altered mentation. She remains on Zosyn for antibiotic coverage. Today's labs have been reviewed, white blood cell count is stable at 12.5, hemoglobin is 9.4, electrolytes are unremarkable,sputum culture showed Lesly albicans only, blood cultures have been negative, stool culture is negative 09/29/2021, the patient is clinically stable. No new complaints. Seroma same treatment including steroids. The patient will be looking for a navigational bronchoscopy to be done outpatient basis. She is still on the same antibiotic coverage for now. No new cultures. She is on TPN for nutritional support. She has also pleasure feeds. Objective - Vital Signs Vital signs: Vital Signs Temp 98.1 F 09/29/21 11:58 Pulse 90 09/29/21 11:58 Resp 18 09/29/21 11:58 BP 134/71 09/29/21 11:58 Pulse Ox 97 09/29/21 04:37 FiO2 21 09/27/21 20:01 Intake & Output 09/28/21 09/29/21 09/29/21 18:59 06:59 18:59 Intake Total 3380 650 Output Total 2 2 Balance 3380 648 -2 Intake: Intake, IV Titration 800 600 Amount Mvi, Adult No.4 with Vit 600 600 K 10 ml Trace (Conc-1Ml/ Dose) 1 ml Sodium Acetate 20 meq Potassium Chloride 6 meq Magnesium Sulfate gm 0.5 gm Calcium Gluconate 1 gm Sodium Phosphate 9 mmol In Amino Acids 5 %/Dextrose 20 % 1,000 ml @ 50 mls/hr IV . BY DURATION [facility] Rx#: [id number] Piperacillin-Tazobactam 3 200 .375 gm In Sodium Chloride 0.9% 100 ml @ 25 mls/hr IVPB Q8HR [facility] Rx# :[id number] Oral 2580 50 Output: Stool 2 2 Other: Voiding Method Bedside Commode Bedside Commode # Voids 4 3 1 # Bowel Movements 0 2 - Exam GENERAL EXAM: Alert, very pleasant, 76-year-old white female, cachectic, on room air pulse ox of 98% but appears to be in no acute distress, on room air comfortable in no apparent distress. HEAD: Normocephalic/atraumatic. EYES: Normal reaction of pupils, equal size. Conjunctiva pink, sclera white. NOSE: Clear with pink turbinates. THROAT: No erythema or exudates. NECK: No masses, no JVD, no thyroid enlargement, no adenopathy. CHEST: No chest wall deformity. Symmetrical expansion. LUNGS: Equal air entry with no crackles, wheeze, rhonchi or dullness. CVS: Regular rate and rhythm, normal S1 and S2, no gallops, no murmurs, no rubs ABDOMEN: Soft, nontender. No hepatosplenomegaly, normal bowel sounds, no guarding or rigidity. EXTREMITIES: No clubbing, no edema, no cyanosis, 2+ pulses and upper and lower extremities. MUSCULOSKELETAL: Muscle strength and tone normal. SPINE: No scoliosis or deformity SKIN: No rashes CENTRAL NERVOUS SYSTEM: Alert and oriented -3. No focal deficits, tone is normal in all 4 extremities. PSYCHIATRIC: Alert and oriented -3. Appropriate affect. Intact judgment and insight. - Labs CBC & Chem 7: 09/28/21 07:40 09/29/21 06:13 Labs: Abnormal Lab Results - Last 24 Hours (Table) 09/29/21 Range/Units 06:13 BUN 50 H (7-17) mg/dL Creatinine 1.37 H (0.52-1.04) mg/dL Glucose 109 H (74-99) mg/dL Alkaline Phosphatase 127 H (38-126) U/L Total Protein 6.0 L (6.3-8.2) g/dL Albumin 3.3 L (3.5-5.0) g/dL Microbiology - Last 24 Hours (Table) 09/23/21 08:07 Blood Culture - Final Blood No Growth after 144 hours 09/23/21 08:07 Blood Culture - Final Blood No Growth after 144 hours Assessment and Plan Plan: #1. Bilateral rib pain, cough related to recurrent aspiration, patient is recovering from recent aspiration related pneumonia. COVID-19 PCR, influenza A and B were negative. Patient has completed a course of IV Zosyn. Chest x-ray showed multifocal bilateral areas of consolidation. Pro-calcitonin level is negative at 0.08 #2. Chronic pain syndrome, most recently on methadone for pain control #3. Chronic kidney disease stage III at baseline #4. Malnutrition and failure to thrive #5. Recurrent aspiration with multiple hospitalizations, patient is currently on TPN for nutritional support in addition to some oral feedings on soft diet #6. History of gastrectomy #7. Recent hospitalization for urinary tract infection, related to enterococcus faecalis #8. Chronic pain syndrome #9. Previous history of CVA #10. History of hypothyroidism #11. History of spinal stenosis and chronic back pain #12. History of chronic anemia of chronic disease #13. Anxiety/depression Plan: I think the ultimate sinus with a bronchoscopy and obtain biopsies of the pulmonary infiltrates chronic and not totally explained. He is on Robaxin and waning by the pulmonary infiltrates has been going on for the past 2 years. We'll perform bronchoscopy at a later stage on outpatient basis. Continue current treatment for now. Clinically stable.
[2021-09-29] MEDS: MIRTAZAPINE 45 MG TABLET PO SCH (22:40)
[2021-09-29] MEDS: ONDANSETRON 4 MG TAB PO PRN (23:20)
[2021-09-30] MEDS: oxyCODONE-APAP 5-325MG 1 EACH TAB PO PRN ×3 (00:02→12:26)
[2021-09-30] MEDS: LEVOTHYROXINE 100 MCG TAB PO SCH (05:44)
[2021-09-30] MEDS: BUTALB/APAP/CAFF 50-325-40MG TAB PO PRN ×2 (05:45→12:26)
[2021-09-30 06:39] LABS: Glucose,Whole Blood 139 mg/dL (75-99)
[2021-09-30 06:59] LABS: ALT 19 U/L (4-34); AST 24 U/L (14-36); African American GFR (CKD) 43 (>60 ml/min/1.73 sqM); Albumin 3.7 g/dL (3.5-5.0); Albumin/Globulin Ratio 1.3; Alkaline Phosphatase 144 U/L (38-126); Anion Gap 10 mmol/L; Blood Urea Nitrogen 54 mg/dL (7-17); Calcium 9.2 mg/dL (8.4-10.2); Carbon Dioxide 25 mmol/L (22-30); Chloride 103 mmol/L (98-107); Globulin 2.8 g/dL; Glucose 124 mg/dL (74-99); Magnesium 2.2 mg/dL (1.6-2.3); Non-African American GFR(CKD) 37 (>60 ml/min/1.73 sqM); Phosphorus 4.3 mg/dL (2.5-4.5); Potassium 5.1 mmol/L (3.5-5.1); Sodium 138 mmol/L (137-145); Total Bilirubin 0.2 mg/dL (0.2-1.3); Total Protein 6.5 g/dL (6.3-8.2)
[2021-09-30 08:55] LABS: Basophils # (A) 0.05 X 10*3/uL (0.00-0.10); Basophils % (A) 0.4 %; Eosinophils # (A) 0.01 X 10*3/uL (0.04-0.35); Eosinophils % (A) 0.1 %; HCT 31.1 % (37.2-46.3); HGB 9.5 g/dL (12.0-15.0); Immature Grans, Automated 0.5 %; Lymphocytes # (A) 1.86 X 10*3/uL (0.90-5.00); Lymphocytes % (A) 15.9 %; MCH 27.3 pg (27.0-32.0); MCHC 30.5 g/dL (32.0-37.0); MCV 89.4 fL (80.0-97.0); Mean Platelet Volume 10.2 fL (9.5-12.2); Monocytes # (A) 0.57 X 10*3/uL (0.20-1.00); Monocytes % (A) 4.9 %; NRBC Per 100 WBC 0 /100 WBCS (0.0-0.0); Neutrophils # (A) 9.14 X 10*3/uL (1.80-7.70); Neutrophils % (A) 78.2 %; Platelet Count 391 X 10*3/uL (140-440); RBC 3.48 X 10*6/uL (4.10-5.20); RDW 17.6 % (11.5-14.5); WBC 11.69 X 10*3/uL (4.50-10.00)
[2021-09-30] MEDS ORDERED: [UNRECOGNIZED DRUG - OTHER] IV SCH ×7 (09:00)
[2021-09-30] MEDS ORDERED: SODIUM ACETATE IV SCH ×7 (09:00)
[2021-09-30] MEDS ORDERED: MAGNESIUM SULFATE IV SCH ×7 (09:00)
[2021-09-30] MEDS ORDERED: CALCIUM GLUCONATE IV SCH ×7 (09:00)
[2021-09-30] MEDS: SYMBICORT 160-4.5 MCG INHALER INHALATION SCH (09:04)
[2021-09-30] MEDS: busPIRone HCl 10 MG TAB PO SCH (09:21)
[2021-09-30] MEDS: SODIUM BICARBONATE TAB 650 MG TAB PO SCH (09:22)
[2021-09-30] MEDS: methylPREDNISolone SOD SUCCI 40 MG/ML 1 ML VIAL IV SCH (09:22)
[2021-09-30] MEDS: FERROUS SULFATE 325 MG TAB PO SCH (09:22)
[2021-09-30] MEDS: ASPIRIN 81 MG PO SCH (09:22)
[2021-09-30] MEDS: PANTOPRAZOLE 40 MG TABLET PO SCH (09:22)
[2021-09-30] MEDS: ENOXAPARIN 30 MG/0.3 ML SYRINGE SQ SCH ×2 (09:23→09:39)
[2021-09-30] MEDS: METHADONE 10 MG TAB PO SCH (09:23)
[2021-09-30] MEDS: buPROPion XL 150 MG TAB.ER.24H PO SCH (09:35)
[2021-09-30] MEDS: buPROPion XL 300 MG TAB.ER.24H PO SCH (09:35)
[2021-09-30] MEDS: hydrOXYzine pamoate 25 MG CAP PO SCH ×2 (09:36→15:48)
--- NOTE | 2021-09-30 10:10 | CDI ---
Documentation Clarification Form Date: 09/30/2021 09:24:50 AM From: Nancy Wilson RN CCDS Admit Date: 09/23/2021 08:16:00 AM Patient Name: Louise Sutton Visit Number: [id number] Discharge Date: ATTENTION: The Clinical Documentation Specialists (CDI) and [facility] Coding Staff appreciate your assistance in clarifying documentation. Please respond to the clarification below the line at the bottom and electronically sign. The CDI & [facility] Coding staff will review the response and follow-up if needed. Please note: Queries are made part of the Legal Health Record. If you have any questions, please contact the author of this message via ITS. Dr. Palmer Desir Protein Calorie Malnutrition is documented 09/23, H&P. Additional clarification regarding the severity of malnutrition is requested. History/Risk Factors: 76-year-old female presents to the ED with worsening cough and chest congestion. Medical History: Aspiration pneumonia, Failure to Thrive and Gastrectomy and TPN. 09/23, H&P. Clinical Indicators: Dietary Consult: 09/27 Current BMI: 15.9 Hgt 5ft 2in Appetite: Fair; Diet History: Some solid foods, mostly chopped/pureed difficulty chewing and swallowing. Physical Findings: Emaciated Underweight, Severe chronic malnutrition/severe wasting body wide. Estimated Nutritional Needs in Kcals: Energy formula for estimated Nutritional needs: 30-35 Kcals/Kg. Energy needs (Kcal) 1500 -1750 Kcal. Estimated Protein needs: Estimated protein range (grams/kg) 1.2 -1.5 g/kg. Estimated protein needs (grams/day) 60-75 g/d. Estimated Fluid Needs: Fluid formula 1ml/Kcal. Estimated Fluid 1500-1750ml/d. Nutritional Diagnosis: Nutrient: Malnutrition, severe chronic malnutrition. Treatment: Monitor PO intake. Monitor TPN tolerance. Dietary Consult: See above Supplements: Ensure Enlive TID TPN: Total volume 1,200ml; rate of 50ml/hr for 24 hours. Dextrose, Carbohydrates, Amino Acids, Protein and Lipids. Lab monitoring: Electrolytes. Please clarify the type of malnutrition, if known: [ xxx ] Severe Protein-Calorie Malnutrition [ ] Malnutrition, unspecified [ ] Malnutrition following GI surgery [ ] Other condition, please specify [ ] Unable to Determine (Template Last Revised: June 2020) MTDD
--- NOTE | 2021-09-30 11:18 | P.PN ---
Subjective Progress Note Date: 09/30/21 This is a 76-year-old white female patient who is well-known to our service from multiple hospitalizations for recurrent aspiration pneumonia. Patient had a history of previous gastrectomy, chronic dysphagia, recurrent aspiration pneumonia, chronic malnutrition and failure to thrive, patient is maintained on TPN in addition to a soft diet by mouth. Patient also has history of chronic kidney disease stage III, hypothyroidism, migraine headaches, chronic pain syndrome, history of CVA, and history of PICC line infection and sepsis. Patient was recently hospitalized for recurrence of aspiration related pneumonia, falls at home following methadone dose increase, and acute on chronic kidney injury. Patient had persistent bilateral midlung opacities, patient had a PICC line inserted and prior hospitalizations for TPN infusion, and completed a course of IV Zosyn. Patient was referred to general surgery for possibility of jejunostomy tube insertion, however patient had previous gastrectomy at the [facility], and she was advised to follow-up with the [facility] on an outpatient basis. At this time she continues to eat by mouth, soft foods in the form of applesauce, and pudding in addition to TPN. She was discharged home on 09/10/2021 to complete a course of IV Zosyn. Patient states she completed her Zosyn 4 days ago, however she states that she continued to be congested, cough, and have intermittent chills and bilateral rib cage pain with coughing and moving. Denied any fever, but does admit to intermittent chills. She came into the emergency department for reevaluation on 09/23/2021. Chest x- ray shows multifocal bilateral areas of consolidation. Admission blood work shows normal white count of 10.2, hemoglobin of 10.2, sodium is 142, potassium is 3.7, chloride is 110, BUN of 17, creatinine is 1.31. Pro-calcitonin level was checked and is negative at 0.08, COVID-19 PCR and influenza A and B were both negative. Patient has been afebrile. She states she is coughing up some right greenish phlegm, no hemoptysis. Appears to be breathing fairly co mfortably, does not appear to be in any acute distress. She was restarted on Zosyn, blood cultures and sputum cultures have been sent. ID service has been consulted On 09/25/2022 patient seen in follow-up on medical surgical floor. Patient is awake and alert, in no acute distress, states still having pain on both sides of her ribs, exacerbated by coughing or deep breathing. At times she is able to bring up some greenish colored phlegm and specimen was sent for cultures. Patient remains on Zosyn for empiric antibiotic coverage for possibility of recurrent aspiration pneumonia. Vital signs stable, she remains on room air, she's been afebrile, blood pressure is been stable. No hemoptysis. No fever or chills. She is tolerating oral intake, she remains on soft diet and remains on TPN for nutritional supplementation. She's had no acute events overnight, the cultures have been sent, preliminary cultures show no growth, stool culture is pending, sputum culture is pending. Today's labs have been reviewed, urine sodium is 139, potassium is 5.0, chloride is 108, CO2 is 21, BUN is 17 and creatinine is 1.2. Pro-calcitonin level came back at 0.08, ID service is following. 09/26/2021, I'm seeing the patient for a follow-up. She is calm and comfortable on room air oxygen. I reviewed a series of chest x-rays and a CAT scan on this patient. Unfortunately, the patient continues to have persistent bilateral pulmonary infiltrates and consolidation nodules and this has been an ongoing problem since early 2020. There are areas of infiltration in the right and the patient has multiple variable sized nodules in the mid and lower lung zones and the patient was also noted to have a previous small left-sided pleural effusion. Large areas of consolidation were also seen in the left upper lobe and left lower lobe. There are also some small areas of cavitation scattered throughout the lung. The exact etiology for his ongoing pulmonary infiltration is not clear. The patient undergone previous bronchoscopy 2 in the microbial cultures have been essentially negative. As such, I think is important to do a further investigation. My recommendations for this patient is an indication of bronchoscopy, repeated bronchial lavage either same time. Biopsies to histologically evaluates these abnormal pulmonary infiltrates. The patient blood work shows a white cell count 4.3 with a hemoglobin of 11.3 and the creatinine is 1.3. ID is opted to put the patient IV Zosyn. The patient was in significant for nutritional support. She is on Lasix 20 mg by mouth daily and she is also on IV Solu-Medrol. In terms of pain control, the patient was switched to Percocet. on 09/27/2021 patient is seen in follow-up on medical surgical floor. Yesterday we discussed possibility of a navigational bronchoscopy with biopsies and bronchoalveolar lavage in view of persistent bilateral pulmonary infiltrates and consolidation and patient was agreeable to proceed, and she had been nothing by mouth after midnight. However today we had to cancel the procedure in view of endoscopy spot availability. this was explained to the patient, and this procedure can be completed early next week or even on outpatient basis. Clinically patient had remained stable, no worsening dyspnea, no fever or chills, no hemoptysis. No acute events overnight altered mentation. She remains on Zosyn for antibiotic coverage. Today's labs have been reviewed, white blood cell count is stable at 12.5, hemoglobin is 9.4, electrolytes are unremarkable,sputum culture showed Lesly albicans only, blood cultures have been negative, stool culture is negative On 09/30/2021 patient seen in follow-up on medical surgical floor, she is resting comfortably in bed, appears to be in no acute distress. No worsening dyspnea or cough, room air pulse ox is 97%, she's been afebrile. Is tolerating oral diet, she remains on TPN for nutritional support, today's labs have been reviewed, white blood cell count is stable at 11.6, hemoglobin is 9.5, electrolytes are within normal limits, BUN is 54, and creatinine is 1.4. Patient remains on IV steroids with Solu-Medrol 40 mg every 12 hours, she has completed her antibiotics, she remains on pain medications for bilateral rib pain with coughing and deep breathing. Objective - Vital Signs Vital signs: Vital Signs Temp 97.4 F L 09/30/21 05:00 Pulse 93 09/30/21 05:00 Resp 16 09/29/21 21:00 BP 153/75 09/30/21 06:27 Pulse Ox 97 09/30/21 05:00 FiO2 21 09/27/21 20:01 Intake & Output 09/29/21 09/30/21 09/30/21 18:59 06:59 18:59 Intake Total 360 1170 Output Total 2 Balance 358 1170 Intake: Intake, IV Titration 900 Amount Mvi, Adult No.4 with Vit 900 K 10 ml Trace (Conc-1Ml/ Dose) 1 ml Sodium Acetate 20 meq Potassium Chloride 6 meq Magnesium Sulfate gm 0.5 gm Calcium Gluconate 1 gm Sodium Phosphate 9 mmol In Amino Acids 5 %/Dextrose 20 % 1,000 ml @ 50 mls/hr IV . BY DURATION [facility] Rx#: [id number] Oral 360 270 Output: Stool 2 Other: Voiding Method Bedside Commode Bedside Commode Bedside Commode # Voids 4 - Exam GENERAL EXAM: Alert, very pleasant, 76-year-old white female, cachectic, on room air pulse ox of 98% but appears to be in no acute distress, on room air comf ortable in no apparent distress. HEAD: Normocephalic/atraumatic. EYES: Normal reaction of pupils, equal size. Conjunctiva pink, sclera white. NOSE: Clear with pink turbinates. THROAT: No erythema or exudates. NECK: No masses, no JVD, no thyroid enlargement, no adenopathy. CHEST: No chest wall deformity. Symmetrical expansion. LUNGS: Equal air entry with no crackles, wheeze, rhonchi or dullness. CVS: Regular rate and rhythm, normal S1 and S2, no gallops, no murmurs, no rubs ABDOMEN: Soft, nontender. No hepatosplenomegaly, normal bowel sounds, no guarding or rigidity. EXTREMITIES: No clubbing, no edema, no cyanosis, 2+ pulses and upper and lower extremities. MUSCULOSKELETAL: Muscle strength and tone normal. SPINE: No scoliosis or deformity SKIN: No rashes CENTRAL NERVOUS SYSTEM: Alert and oriented -3. No focal deficits, tone is normal in all 4 extremities. PSYCHIATRIC: Alert and oriented -3. Appropriate affect. Intact judgment and insight. - Labs CBC & Chem 7: 09/30/21 05:55 09/30/21 05:55 Labs: Abnormal Lab Results - Last 24 Hours (Table) 09/30/21 09/30/21 09/30/21 Range/Units 05:55 05:55 06:37 WBC 11.69 H (4.50-10.00) X 10*3/uL RBC 3.48 L (4.10-5.20) X 10*6/uL Hgb 9.5 L (12.0-15.0) g/dL Hct 31.1 L (37.2-46.3) % MCHC 30.5 L (32.0-37.0) g/dL RDW 17.6 H (11.5-14.5) % Immature Gran # 0.06 H (0.00-0.04) X 10*3/uL Neutrophils # 9.14 H (1.80-7.70) X 10*3/uL Eosinophils # 0.01 L (0.04-0.35) X 10*3/uL BUN 54 H (7-17) mg/dL Creatinine 1.40 H (0.52-1.04) mg/dL Glucose 124 H (74-99) mg/dL POC Glucose (mg/dL) 139 H (75-99) mg/dL Alkaline Phosphatase 144 H (38-126) U/L Microbiology - Last 24 Hours (Table) 09/24/21 12:00 Stool Culture - Final Stool 09/23/21 08:07 Blood Culture - Final Blood No Growth after 144 hours 09/23/21 08:07 Blood Culture - Final Blood No Growth after 144 hours Assessment and Plan Plan: #1. Bilateral rib pain, cough related to recurrent aspiration, patient is recovering from recent aspiration related pneumonia. COVID-19 PCR, influenza A and B were negative. Patient has completed a course of IV Zosyn. Chest x-ray showed multifocal bilateral areas of consolidation. Pro-calcitonin level is negative at 0.08 #2. Chronic pain syndrome, most recently on methadone for pain control #3. Chronic kidney disease stage III at baseline #4. Malnutrition and failure to thrive #5. Recurrent aspiration with multiple hospitalizations, patient is currently on TPN for nutritional support in addition to some oral feedings on soft diet #6. History of gastrectomy #7. Recent hospitalization for urinary tract infection, related to enterococcus faecalis #8. Chronic pain syndrome #9. Previous history of CVA #10. History of hypothyroidism #11. History of spinal stenosis and chronic back pain #12. History of chronic anemia of chronic disease #13. Anxiety/depression Plan: Vital signs are stable Clinical patient remains stable No worsening dyspnea, coughing, no worsening hypoxia She has completed her antibiotics From pulmonary perspective she can be considered for discharge home Prednisone taper Outpatient follow-up with Dr. Womack in the office in 7-10 days And possibility of bronchoscopy with biopsies will be discussed on an outpatient basis I have personally seen and examined the patient, performed the documentation and the assessment and plan as written. Number of minutes spent on the visit: [10] Time with Patient: Less than 30
[2021-09-30 11:31] LABS: Glucose,Whole Blood 162 mg/dL (75-99)
[2021-09-30 12:13] VITALS: BP 146/72; PULSE 61; RESP 17; TEMP 98.2
[2021-10-01] MEDS ORDERED: predniSONE 20 MG TAB PO SCH (09:00)
--- NOTE | 2021-10-02 11:01 | P.DS ---
Providers Date of admission: 09/23/21 08:16 Expected date of discharge: 09/30/21 Attending physician: Palmer Desir Consults: 09/23/21 07:54 Consult Physician Routine Consulting Provider: Jas Greogrio Consult Reason/Comments: Recurrent pneumonia Do you want consulting provider notified?: Yes 09/24/21 13:39 Consult Physician Routine Consulting Provider: Geovanny Womack Consult Reason/Comments: pneumonia Do you want consulting provider notified?: Yes Primary care physician: Ale Eli [facility] Course: Discharge diagnosis Bilateral pneumonia, at this time patient was started on IV Zosyn in the emergency room, will continue with the same, blood culture and sputum culture ordered, infectious disease consultation was requested. Previous history of multiple episodes of aspiration pneumonia History of gastrectomy Failure to thrive with severe weight on agent is dependent on TPN Underlying history of hypothyroidism Underlying history of chronic back pain Underlying history of chronic kidney disease Previous history of stroke in the past Underlying history of depression and anxiety disorder She remains on IV steroids Per pulmonary plans for outpatient bronchoscopy Home medications reviewed and reordered. For DVT prophylaxis acute Lovenox Consult nutrition for continuation of TPN Small amounts of pured diet for pleasure eating Prognosis is guarded Hospital course Louise Sutton, is a 76-year-old female who presented to [facility] emergency room with a chief complaint of worsening cough and chest congestion She was evaluated in the emergency room vital examination on presentation revealed a temperature of 97.8 pulse 82 respiration 18 blood pressure 141/88 pulse ox 99% on room air Laboratory data revealed a white blood count of 10.2 hemoglobin 10.2 platelet count 470 sodium 142 potassium 3.7 chloride 110 CO2 22 BUN 17 creatinine 1.31 glucose level 101 COVID-19 PCR was negative influenza A and B testing were negative Testing in the emergency room revealed chest x-ray done in the emergency room revealed evidence of pneumonic consolidations with patchy air space conso lidation in the mid lung calixto that are worse than previous x-ray Patient was admitted to medical floor for further evaluation and treatment On 09/24/2021 patient was seen and examined on the medical floor she is alert and oriented 3 in no apparent distress she is complaining of cough for and complaining of pain in the middle of her back radiating to lower ribs area otherwise she denies any complaints there is no fever or chills no headache or dizziness no chest pain no nausea or vomiting no abdominal pain no diarrhea and no urinary symptoms On 09/25/2021 patient is alert and oriented 3. Patient remains on IV Zosyn. Pulmonary and infectious disease services are following. Current vitals temp 98.3, heart rate 90, respiratory rate 20, blood pressure 128/70 with a pulse ox of 97% on room air On 09/26/2021 patient was seen and examined on the medical floor she is alert and oriented 3 in no apparent distress there is no fever or chills no headache or dizziness no chest pain no shortness of breath she is still complaining of cough and pain in the lower ribs area when she coughs no nausea or vomiting no abdominal pain no diarrhea and no urinary symptoms. Input from pulmonary reviewed patient is scheduled for bronchoscopy with possible biopsy tomorrow, continue with current medications at this time continue with current pured diet for pleasure feeding continue with TPN On 09/27/2021 patient is alert and oriented 3. Tentative plans for possible bronchoscopy today per pulmonary. Current vital signs temp 97.3, heart rate 79, respiratory 18, blood pressure 120/73 with a pulse ox of 98% on room air. Patient remains on IV Zosyn. Pulmonary and infectious disease services are following On 09/29/2021 patient is alert and oriented 3. Per pulmonary services bronchoscopy now to be scheduled outpatient. Patient remains on IV steroids. Pulmonary and infectious disease services are following. Current vital signs temp 98.0, heart rate 89, respiratory rate 18, blood pressure 147/70 with pulse of 97% on room air On 09/30/2021 patient cleared for discharge from pulmonary and infectious disease patient will be discharged on prednisone taper. Patient will follow-up outpatient with pulmonary services. Patient has scheduled outpatient bronchoscopy for 10/10/2021 Patient Condition at Discharge: Stable Plan - Discharge Summary Discharge Rx Participant: Yes New Discharge Prescriptions: New predniSONE [Deltasone] 40 mg PO DAILY tab Continue Ferrous Sulfate [Iron (65 MG Elemental)] 325 mg PO DAILY@1200 calcitrioL [Calcitriol] 1 mcg PO MOWEFR busPIRone HCL [Buspar] 30 mg PO BID Butalb/APAP/Caff 50-325-40Mg [Fioricet 50-325-40] 1 tab PO Q6H buPROPion XL [Wellbutrin XL] 150 mg PO DAILY Albuterol Sulfate [Albuterol Sulfate Hfa] 2 puff INHALATION RT-Q6H PRN PRN Reason: Shortness Of Breath polyethylene glycoL 3350 [Miralax] 17 gm PO DAILY PRN PRN Reason: Constipation hydrOXYzine pamoate [Vistaril] 100 mg PO TID Omeprazole 20 mg PO DAILY Furosemide [Lasix] 20 mg PO DAILY PRN PRN Reason: Edema Sodium Bicarbonate Tab 650 mg PO DAILY 30 Days #30 tab Ondansetron [Zofran] 4 mg PO Q6H PRN PRN Reason: Nausea Methadone [Dolophine] 20 mg PO BID tab buPROPion XL [Wellbutrin XL] 300 mg PO DAILY Budesonide/Formoterol Fumarate [Symbicort 160-4.5 Mcg Inhaler] 2 puff INHALATION RT-BID Aspirin EC [Ecotrin Low Dose] 81 mg PO DAILY Levothyroxine Sodium [Synthroid] 100 mcg PO DAILY@30 30 Days #30 tab Mirtazapine [Remeron] 45 mg PO HS Discontinued Naloxone HCl [Narcan] 4 mg NASAL ONCE PRN PRN Reason: Overdose Discharge Medication List Ferrous Sulfate [Iron (65 MG Elemental)] 325 mg PO DAILY@1200 11/06/15 [History] calcitrioL [Calcitriol] 1 mcg PO MOWEFR 06/07/19 [History] busPIRone HCL [Buspar] 30 mg PO BID 04/14/20 [History] Butalb/APAP/Caff 50-325-40Mg [Fioricet 50-325-40] 1 tab PO Q6H 06/30/20 [History] buPROPion XL [Wellbutrin XL] 150 mg PO DAILY 11/04/20 [History] buPROPion XL [Wellbutrin XL] 300 mg PO DAILY 02/20/21 [History] Albuterol Sulfate [Albuterol Sulfate Hfa] 2 puff INHALATION RT-Q6H PRN 04/07/21 [History] Budesonide/Formoterol Fumarate [Symbicort 160-4.5 Mcg Inhaler] 2 puff INHALATION RT-BID 04/07/21 [History] Aspirin EC [Ecotrin Low Dose] 81 mg PO DAILY 05/12/21 [History] Levothyroxine Sodium [Synthroid] 100 mcg PO DAILY@0630 30 Days #30 tab 06/19/21 [Rx] Furosemide [Lasix] 20 mg PO DAILY PRN 08/08/21 [History] Omeprazole 20 mg PO DAILY 08/08/21 [History] hydrOXYzine pamoate [Vistaril] 100 mg PO TID 08/08/21 [History] polyethylene glycoL 3350 [Miralax] 17 gm PO DAILY PRN 08/08/21 [History] Sodium Bicarbonate Tab 650 mg PO DAILY 30 Days #30 tab 08/21/21 [Rx] Mirtazapine [Remeron] 45 mg PO HS 09/01/21 [History] Ondansetron [Zofran] 4 mg PO Q6H PRN 09/01/21 [History] Methadone [Dolophine] 20 mg PO BID tab 09/10/21 [Rx] predniSONE [Deltasone] 40 mg PO DAILY tab 09/30/21 [Rx] Follow up Appointment(s)/Referral(s): Ale Eli MD [Primary Care Provider] - 10/02/21 11:00 am [facility] - As Needed Care,[facility] [NON-STAFF] - As Needed [facility], [REFERRING] - As Needed Geovanny Womack MD [STAFF PHYSICIAN] - 10/24/21 1:15 pm (Appt. will be with Nurse PractitionerLeyla. [employer]. Dr. Santoyo office will call if they can get you in any sooner.) Patient Instructions/Handouts: Prednisone (By mouth), Pneumonia (DC) Activity/Diet/Wound Care/Special Instructions: Navigational bronchoscopy on October 10, 2021 at 1230, [facility] will call with additional instructions the day before. Nothing to eat after midnight. The procedure will be with Dr. Sanchez Plan of Treatment: Navigational bronchoscopy on October 10, 2021 at 1230, [facility] will call with additional instructions the day before. Nothing to eat after midnight. The procedure will be with Dr. Sanchez
== END 2021-09-30 14:00 | disposition home health service (06) | DRG 177 ==
LOC: EC 05:44 → 5NMEDONC 08:16
PROVIDERS: ADMIT Internal Medicine; ATTEND Internal Medicine
PROC: 3E0436Z Introduction of Nutritional Substance into Central Vein, Percutaneous Approach (ICD-10-PCS; principal; 2021-09-23)
DX: J69.0 Pneumonitis due to inhalation of food and vomit (principal); E43 Unspecified severe protein-calorie malnutrition; J44.0 Chronic obstructive pulmonary disease with (acute) lower respiratory infection; N18.4 Chronic kidney disease, stage 4 (severe); Z68.1 Body mass index [BMI] 19.9 or less, adult; R62.7 Adult failure to thrive; G89.4 Chronic pain syndrome; Z20.822 Contact with and (suspected) exposure to COVID-19; Z28.310 Unvaccinated for COVID-19; E03.9 Hypothyroidism, unspecified; F32.A Depression, unspecified; K21.9 Gastro-esophageal reflux disease without esophagitis; D63.1 Anemia in chronic kidney disease; K59.00 Constipation, unspecified; M48.00 Spinal stenosis, site unspecified; F41.0 Panic disorder [episodic paroxysmal anxiety]; Z79.51 Long term (current) use of inhaled steroids; Z79.82 Long term (current) use of aspirin; Z79.890 Hormone replacement therapy; Z79.899 Other long term (current) drug therapy; Z80.41 Family history of malignant neoplasm of ovary; Z80.51 Family history of malignant neoplasm of kidney; Z82.49 Family history of ischemic heart disease and other diseases of the circulatory system; Z86.16 Personal history of COVID-19; Z86.73 Personal history of transient ischemic attack (TIA), and cerebral infarction without residual deficits; Z87.01 Personal history of pneumonia (recurrent); Z87.11 Personal history of peptic ulcer disease; Z90.3 Acquired absence of stomach [part of]; Z90.710 Acquired absence of both cervix and uterus; Z98.890 Other specified postprocedural states; Z86.19 Personal history of other infectious and parasitic diseases; Z91.81 History of falling; Z79.891 Long term (current) use of opiate analgesic; Z96.642 Presence of left artificial hip joint; Z88.5 Allergy status to narcotic agent; Z88.8 Allergy status to other drugs, medicaments and biological substances; Z91.048 Other nonmedicinal substance allergy status; Z71.3 Dietary counseling and surveillance
CPT/HCPCS: 36415; 71046; 72072; 80048; 80053; 82330; 83605; 83735; 84100; 84145; 84478; 85025; 86140; 87040; 87045; 87046; 87070; 87205; 87502; 87635; 94640; 94760; 96365; 99285

== ENCOUNTER 2021-10-08 17:53 | Inpatient (IN) | payer MEDICARE, OTHER ==
[2021-10-08 20:27] LABS: Anisocytosis Slight; Basophils % (A) 0 %; Eosinophils # (A) 0.4 k/uL (0-0.7); Eosinophils % (A) 2 %; HCT 35.2 % (34.0-46.0); Hypochromasia Slight; Lymphocytes % (A) 5 %; MCHC 31.2 g/dL (31.0-37.0); MCV 92.7 fL (80.0-100.0); Mean Platelet Volume 6.9; Monocytes # (A) 0.6 k/uL (0-1.0); Monocytes % (A) 3 %; Neutrophils # (A) 16.3 k/uL (1.3-7.7); Neutrophils % (A) 88 %; Platelet Count 431 k/uL (150-450); RDW 18.2 % (11.5-15.5); WBC 18.4 k/uL (3.8-10.6)
[2021-10-08 20:37] LABS: Albumin 4.1 g/dL (3.5-5.0); Calcium 8.9 mg/dL (8.4-10.2); Potassium 3.8 mmol/L (3.5-5.1); Total Bilirubin 0.5 mg/dL (0.2-1.3); Total Protein 7.3 g/dL (6.3-8.2)
[2021-10-08 20:43] LABS: INR 0.9 (<1.2); Partial Thromboplastin Time 25.9 sec (22.0-30.0); Prothrombin Time 9.9 sec (9.0-12.0)
--- NOTE | 2021-10-08 20:45 | XR ---
EXAMINATION TYPE: XR chest 2V DATE OF EXAM: 10/08/2021 COMPARISON: 09/24/2021 HISTORY: Short of breath TECHNIQUE: 2 views FINDINGS: There is bilateral patchy pulmonary airspace consolidation. There appears to be some mild c avitation in the right upper lobe at the patchy infiltrate. Heart size is normal. No heart failure. T here is left-sided central venous catheter with tip in the superior vena cava. There is old healed le ft clavicle fracture. No pleural effusion. IMPRESSION: Bilateral pulmonary infiltrates similar to old exam. There is probably some new cavitatio n in the right upper lobe.
--- NOTE | 2021-10-08 22:54 | ED ---
SOB HPI - General Chief Complaint: Shortness of Breath Stated Complaint: DONTE,Rib Pain Time Seen by Provider: 10/08/21 22:43 Source: patient, RN notes reviewed, old records reviewed Mode of arrival: ambulatory Limitations: no limitations - History of Present Illness Initial Comments: This is a 76-year-old female to the emergency department for evaluation. Mildly poor story coming with cough congestion known history of pneumonia recently taken off antibiotics also having pain chest pain back pain. No fevers no nausea vomiting no traumas MD Complaint: shortness of breath, cough, pain with inspiration -: days(s), unknown Radiation: back Severity: mild Quality: dull, aching Consistency: constant Improves With: nothing Worsens With: nothing Known History Of: COPD, asthma, recurrent pneumonia Context: recent URI, anxiety, recent illness Associated Symptoms: chest pain, pain with inspiration, cough Treatments Prior to Arrival: oxygen - Related Data Home Oxygen Therapy: No Home Medications Medication Instructions Recorded Confirmed Ferrous Sulfate [Iron (65 MG 325 mg PO DAILY@1200 11/06/15 10/08/21 Elemental)] calcitrioL [Calcitriol] 1 mcg PO MOWEFR 06/07/19 10/08/21 busPIRone HCL [Buspar] 30 mg PO BID 04/14/20 10/08/21 Butalb/APAP/Caff 50-325-40Mg 1 tab PO Q6H 06/30/20 10/08/21 [Fioricet 50-325-40] buPROPion XL [Wellbutrin XL] 300 mg PO DAILY 02/20/21 10/08/21 Albuterol Sulfate [Albuterol 2 puff INHALATION RT-Q6H PRN 04/07/21 10/08/21 Sulfate Hfa] Budesonide/Formoterol Fumarate 2 puff INHALATION RT-BID 04/07/21 10/08/21 [Symbicort 160-4.5 Mcg Inhaler] Aspirin EC [Ecotrin Low Dose] 81 mg PO DAILY 05/12/21 10/08/21 Furosemide [Lasix] 20 mg PO DAILY PRN 08/08/21 10/08/21 Omeprazole 20 mg PO DAILY 08/08/21 10/08/21 hydrOXYzine pamoate [Vistaril] 100 mg PO TID 08/08/21 10/08/21 polyethylene glycoL 3350 [Miralax] 17 gm PO DAILY PRN 08/08/21 10/08/21 Mirtazapine [Remeron] 45 mg PO HS 09/01/21 10/08/21 Ondansetron [Zofran] 4 mg PO Q6H PRN 09/01/21 10/08/21 Previous Rx's Medication Instructions Recorded Levothyroxine Sodium [Synthroid] 100 mcg PO DAILY@0630 30 Days #30 06/19/21 tab Sodium Bicarbonate Tab 650 mg PO DAILY 30 Days #30 tab 08/21/21 Methadone [Dolophine] 20 mg PO BID tab 09/10/21 predniSONE [Deltasone] 40 mg PO DAILY tab 09/30/21 Allergies Allergy/AdvReac Type Severity Reaction Status Date / Time mold Allergy Itching Verified 10/08/21 23:12 denosumab [From Prolia] AdvReac SEVERE Verified 10/08/21 23:12 CALCIUM LOSS morphine AdvReac Confusion Verified 10/08/21 23:12 DUST Allergy Itching Uncoded 10/08/21 19:45 Review of Systems ROS Statement: Those systems with pertinent positive or pertinent negative responses have been documented in the HPI. ROS Other: All systems not noted in ROS Statement are negative. Past Medical History Past Medical History: Asthma, COPD, CVA/TIA, GERD/Reflux, Memory Impairment, Os teoarthritis (OA), Pneumonia, Renal Disease, Respiratory Disorder, Thyroid Disorder Additional Past Medical History / Comment(s): Aspiration, pneumonias, 1 covid pneumonia, protein calorie malnutrition, pt was on TPN with PICC line managed thru [facility], chronic anemia, gastric ulcers/PUD, pancreatitis, bowel obstruction/surgery, constipation, CKD stage IV, TIA, chronic migraines, chronic back/cervical pain/spinal stenosis, hypothyroid, hyponatremia. DAILY TPN History of Any Multi-Drug Resistant Organisms: None Reported, Other MDRO Date of last positivie culture/infection: 2021 MDRO Source:: urine Past Surgical History: Back Surgery, Bowel Resection, Hysterectomy, Joint Replacement Additional Past Surgical History / Comment(s): LOWER BACK SURGERY lamenectomy/discetomy then had a revison of that sx. 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, nasal sx d/t broken nose, colonoscopy/egd, PAIN CLINIC PROCEDURES, PORT A CATH INSERTION, LT ADEOLA Past Anesthesia/Blood Transfusion Reactions: No Reported Reaction Additional Past Anesthesia/Blood Transfusion Reaction / Comment(s): PT RECEIVED BLOOD TRANSFUSIONS AFTER STOMACH SURGERY Past Psychological History: Anxiety, Depression, Panic Disorder Smoking Status: Never smoker Past Alcohol Use History: None Reported Past Drug Use History: None Reported - Past Family History Father Family Medical History: Cancer, Coronary Artery Disease (CAD) Additional Family Medical History / Comment(s): FATHER HAD BLADDER AND KIDNEY CANCER. FATHER HAD TB WHEN HE WAS A CHILD .FATHER AT AGE 87. Mother Family Medical History: Cancer Additional Family Medical History / Comment(s): MOTHER AT AGE 58 OF OVARIAN CANCER. General Exam Limitations: no limitations Course Vital Signs 10/08/21 19:41 Temperature 98.0 F Pulse Rate 97 Respiratory 16 Rate Blood Pressure 153/83 O2 Sat by Pulse 99 Oximetry - Reevaluation(s) Reevaluation #1: 10/08/21 22:53 Medical record is reviewed Reevaluation #2: 10/08/21 22:59 Patient is no acute current distress Reevaluation #3: 10/08/21 22:59 Patient feeling better with pain control placed back on antibiotics - Consultations Consultation #1: Spoke with Dr. Desir Medical Decision Making - Medical Decision Making 76 female who will be admitted for persistent pneumonia and pain. Patient placed on pain control and IV antibiotics - Lab Data Result diagrams: 10/08/21 20:01 10/08/21 20:01 Lab Results 10/08/21 10/08/21 10/08/21 Range/Units 20:01 20:01 20:01 WBC 18.4 H (3.8-10.6) k/uL RBC 3.80 (3.80-5.40) m/uL Hgb 11.0 L (11.4-16.0) gm/dL Hct 35.2 (34.0-46.0) % MCV 92.7 (80.0-100.0) fL MCH 29.0 (25.0-35.0) pg MCHC 31.2 (31.0-37.0) g/dL RDW 18.2 H (11.5-15.5) % Plt Count 431 (150-450) k/uL MPV 6.9 Neutrophils % 88 % Lymphocytes % 5 % Monocytes % 3 % Eosinophils % 2 % Basophils % 0 % Neutrophils # 16.3 H (1.3-7.7) k/uL Lymphocytes # 1.0 (1.0-4.8) k/uL Monocytes # 0.6 (0-1.0) k/uL Eosinophils # 0.4 (0-0.7) k/uL Basophils # 0.0 (0-0.2) k/uL Hypochromasia Slight Anisocytosis Slight PT 9.9 (9.0-12.0) sec INR 0.9 (<1.2) APTT 25.9 (22.0-30.0) sec Sodium 137 (137-145) mmol/L Potassium 3.8 (3.5-5.1) mmol/L Chloride 104 (98-107) mmol/L Carbon Dioxide 22 (22-30) mmol/L Anion Gap 11 mmol/L BUN 25 H (7-17) mg/dL Creatinine 1.17 H (0.52-1.04) mg/dL Est GFR (CKD-EPI)AfAm 53 (>60 ml/min/1.73 sqM) Est GFR (CKD-EPI)NonAf 46 (>60 ml/min/1.73 sqM) Glucose 98 (74-99) mg/dL Calcium 8.9 (8.4-10.2) mg/dL Total Bilirubin 0.5 (0.2-1.3) mg/dL AST 22 (14-36) U/L ALT 29 (4-34) U/L Alkaline Phosphatase 233 H (38-126) U/L Troponin I (0.000-0.034) ng/mL Total Protein 7.3 (6.3-8.2) g/dL Albumin 4.1 (3.5-5.0) g/dL 10/08/21 Range/Units 20:01 WBC (3.8-10.6) k/uL RBC (3.80-5.40) m/uL Hgb (11.4-16.0) gm/dL Hct (34.0-46.0) % MCV (80.0-100.0) fL MCH (25.0-35.0) pg MCHC (31.0-37.0) g/dL RDW (11.5-15.5) % Plt Count (150-450) k/uL MPV Neutrophils % % Lymphocytes % % Monocytes % % Eosinophils % % Basophils % % Neutrophils # (1.3-7.7) k/uL Lymphocytes # (1.0-4.8) k/uL Monocytes # (0-1.0) k/uL Eosinophils # (0-0.7) k/uL Basophils # (0-0.2) k/uL Hypochromasia Anisocytosis PT (9.0-12.0) sec INR (<1.2) APTT (22.0-30.0) sec Sodium (137-145) mmol/L Potassium (3.5-5.1) mmol/L Chloride (98-107) mmol/L Carbon Dioxide (22-30) mmol/L Anion Gap mmol/L BUN (7-17) mg/dL Creatinine (0.52-1.04) mg/dL Est GFR (CKD-EPI)AfAm (>60 ml/min/1.73 sqM) Est GFR (CKD-EPI)NonAf (>60 ml/min/1.73 sqM) Glucose (74-99) mg/dL Calcium (8.4-10.2) mg/dL Total Bilirubin (0.2-1.3) mg/dL AST (14-36) U/L ALT (4-34) U/L Alkaline Phosphatase (38-126) U/L Troponin I <0.012 (0.000-0.034) ng/mL Total Protein (6.3-8.2) g/dL Albumin (3.5-5.0) g/dL - Radiology Data Radiology results: report reviewed (Chest x-ray showed bilateral infiltrates and likely cavitary lesion), image reviewed Disposition Clinical Impression: Chronic renal failure, Anorexia, Community acquired pneumonia, Generalized weakness, Encounter for medication refill Disposition: ADMITTED IP TO THIS HOSP Condition: Fair Is patient prescribed a controlled substance at d/c from ED?: No
[2021-10-08] MEDS ORDERED: PNEUMONIA PROTOCOL UTILIZED 1 EACH MISC PO PRN (22:56)
[2021-10-08] MEDS ORDERED: IPRATROPIUM-ALBUTEROL 3 ML NEB INHALATION PRN (22:56)
[2021-10-08] MEDS ORDERED: AZITHROMYCIN 500 MG in SODIUM CHLORIDE 0.9% 250 ML IVPB ONE (23:00)
[2021-10-09] MEDS ORDERED: HYDROmorphone 1 MG/ML 1 ML SYRINGE IVP STA (00:17)
[2021-10-09] MEDS: SODIUM CHLORIDE 0.9% 1,000 ML IV SCH ×3 (00:22→15:47)
[2021-10-09] MEDS ORDERED: ACETAMINOPHEN TAB 325 MG TAB PO PRN (02:20)
[2021-10-09] MEDS ORDERED: KETOROLAC 15 MG/ML 1 ML VIAL IVP STA (02:21)
[2021-10-09] MEDS: HYDROmorphone 1 MG/ML 1 ML SYRINGE IVP PRN ×4 (04:25→21:07)
--- NOTE | 2021-10-09 08:33 | XR ---
EXAMINATION TYPE: XR chest 2V DATE OF EXAM: 10/09/2021 COMPARISON: 10/08/2021 TECHNIQUE: PA and lateral views submitted. HISTORY: Cough FINDINGS: Bilateral large areas of irregular consolidation or mass and suggestion of cavitation. Left-sided PIC C line noted is hyperinflation suggesting COPD. Surgical upper abdomen noted. Underlying COPD and chr onic interstitial lung disease suspected. IMPRESSION: 1. Bilateral large areas of consolidation with suspected cavitation. Neoplasm versus cavitary pneumon ia. 2. Additional areas of consolidation bilateral lower lobes. Findings are stable relative to prior exa m
[2021-10-09] MEDS ORDERED: ONDANSETRON 4 MG TAB PO PRN (08:59)
[2021-10-09] MEDS ORDERED: polyethylene glycoL 3350 17 GM POWD.PACK PO PRN (08:59)
[2021-10-09] MEDS ORDERED: ALBUTEROL NEBULIZED 2.5 MG/3 ML INHALATION PRN (08:59)
[2021-10-09] MEDS ORDERED: POTASSIUM CHLORIDE ER 10 MEQ TAB.ER.PRT PO PRN (08:59)
[2021-10-09] MEDS ORDERED: FUROSEMIDE 20 MG TAB PO PRN (08:59)
[2021-10-09] MEDS ORDERED: AZITHROMYCIN 500 MG TAB PO SCH (09:00)
[2021-10-09] MEDS: BUTALB/APAP/CAFF 50-325-40MG TAB PO PRN ×3 (09:41→22:01)
[2021-10-09] MEDS: hydrOXYzine pamoate 25 MG CAP PO SCH ×3 (09:41→22:02)
[2021-10-09] MEDS: SODIUM BICARBONATE TAB 650 MG TAB PO SCH (09:41)
[2021-10-09] MEDS: busPIRone HCl 10 MG TAB PO SCH ×2 (09:41→20:25)
[2021-10-09] MEDS: ASPIRIN 81 MG PO SCH (09:42)
[2021-10-09] MEDS: METHADONE 10 MG TAB PO SCH ×2 (09:42→20:24)
[2021-10-09] MEDS: PANTOPRAZOLE 40 MG TABLET PO SCH (09:47)
[2021-10-09] MEDS: buPROPion XL 300 MG TAB.ER.24H PO SCH (10:06)
[2021-10-09] MEDS: buPROPion XL 150 MG TAB.ER.24H PO SCH (10:06)
--- NOTE | 2021-10-09 10:24 | P.HPIM ---
History of Present Illness H&P Date: 10/09/21 Louise Sutton, is a 76-year-old female, who presented to [facility] emergency room with a chief complaint of worsening shortness of breath. She was evaluated in the emergency room vital examination on presentation revealed a temperature of 98 pulse 97 respiration 16 blood pressure 153/83 pulse ox 99% on room air Laboratory data revealed a white blood count of 18.4 hemoglobin 11.2 platelet count 431 BUN 25 creatinine 1.17 alkaline phosphatase 233 troponin less than 0.012 Testing in the emergency room revealed chest x-ray done in the emergency room revealed by basilar infiltrates and new cavitation in the right upper lobe. Patient was admitted to medical floor for further evaluation and treatment Past medical history is significant for history of recurrent pneumonia likely re lated to aspiration, history of asthma, history of COPD, history of CVA, history of pancreatitis, history of gastrectomy, patient is dependent on TPN for her nutritional needs, history of hypothyroidism, history of chronic back pain maintained on narcotics for pain management, history of migraine headaches Review of Systems Please refer to HPI otherwise unremarkable Past Medical History Past Medical History: Asthma, COPD, CVA/TIA, GERD/Reflux, Memory Impairment, Osteoarthritis (OA), Pneumonia, Renal Disease, Respiratory Disorder, Thyroid Disorder Additional Past Medical History / Comment(s): Aspiration, pneumonias, 1.2021 covid pneumonia, protein calorie malnutrition, pt was on TPN with PICC line managed thru [facility], chronic anemia, gastric ulcers/PUD, pancreatitis, bowel obstruction/surgery, constipation, CKD stage IV, TIA, chronic migraines, chronic back/cervical pain/spinal stenosis, hypothyroid, hyponatremia. DAILY TPN History of Any Multi-Drug Resistant Organisms: None Reported, Other MDRO Date of last positivie culture/infection: 2021 MDRO Source:: urine Past Surgical History: Back Surgery, Bowel Resection, Hysterectomy, Joint Replacement Additional Past Surgical History / Comment(s): LOWER BACK SURGERY lamenectomy/discetomy then had a revison of that sx. 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, nasal sx d/t broken nose, colonoscopy/egd, PAIN CLINIC PROCEDURES, PORT A CATH INSERTION, LT ADEOLA Past Anesthesia/Blood Transfusion Reactions: No Reported Reaction Additional Past Anesthesia/Blood Transfusion Reaction / Comment(s): PT RECEIVED BLOOD TRANSFUSIONS AFTER STOMACH SURGERY Past Psychological History: Anxiety, Depression, Panic Disorder Additional Psychological History / Comment(s): Pt resides alone in an apartment. She has a limited legal guardian, Rosario Oneal. There is a petition filed to modify LG. Pt states her sister, Kamilah Gann with eventually be her LG. She had [facility] home care for TPN. She uses a walker at times to ambulate. She no longer drives, her fried cake maker Jonn Parnell drives her to [employer]. She has [facility] visits twice a week to check on her mental health. She recieves her meds in blister packs. Smoking Status: Never smoker Past Alcohol Use History: None Reported Past Drug Use History: None Reported - Past Family History Father Family Medical History: Cancer, Coronary Artery Disease (CAD) Additional Family Medical History / Comment(s): FATHER HAD BLADDER AND KIDNEY CANCER. FATHER HAD TB WHEN HE WAS A CHILD .FATHER AT AGE 87. Mother Family Medical History: Cancer Additional Family Medical History / Comment(s): MOTHER AT AGE 58 OF OVARIAN CANCER. Medications and Allergies Home Medications Medication Instructions Recorded Confirmed Type Ferrous Sulfate [Iron (65 MG 325 mg PO DAILY@1200 11/06/15 10/08/21 History Elemental)] calcitrioL [Calcitriol] 1 mcg PO MOWEFR 06/07/19 10/08/21 History busPIRone HCL [Buspar] 30 mg PO BID 04/14/20 10/08/21 History Butalb/APAP/Caff 50-325-40Mg 1 tab PO Q6H PRN 06/30/20 10/08/21 History [Fioricet 50-325-40] buPROPion XL [Wellbutrin XL] 300 mg PO DAILY 02/20/21 10/08/21 History Albuterol Sulfate [Albuterol 2 puff INHALATION RT-Q6H PRN 04/07/21 10/08/21 History Sulfate Hfa] Budesonide/Formoterol Fumarate 2 puff INHALATION RT-BID 04/07/21 10/08/21 History [Symbicort 160-4.5 Mcg Inhaler] Aspirin EC [Ecotrin Low Dose] 81 mg PO DAILY 05/12/21 10/08/21 History Levothyroxine Sodium [Synthroid] 100 mcg PO DAILY@0630 30 Days #30 06/19/21 10/08/21 Rx tab Furosemide [Lasix] 20 mg PO DAILY PRN 08/08/21 10/08/21 History Omeprazole 20 mg PO DAILY 08/08/21 10/08/21 History hydrOXYzine pamoate [Vistaril] 50 mg PO TID 08/08/21 10/08/21 History polyethylene glycoL 3350 [Miralax] 17 gm PO DAILY PRN 08/08/21 10/08/21 History Sodium Bicarbonate Tab 650 mg PO DAILY 30 Days #30 tab 08/21/21 10/08/21 Rx Mirtazapine [Remeron] 45 mg PO HS 09/01/21 10/08/21 History Ondansetron [Zofran] 4 mg PO Q6H PRN 09/01/21 10/08/21 History Methadone [Dolophine] 20 mg PO BID tab 09/10/21 10/08/21 Rx Potassium Chloride ER [K-Dur 10] 30 meq PO DAILY PRN 10/08/21 10/08/21 History buPROPion XL [Wellbutrin XL] 150 mg PO DAILY 10/08/21 10/08/21 History predniSONE [Deltasone] See Taper PO DIRECTED 10/08/21 10/08/21 History Allergies Allergy/AdvReac Type Severity Reaction Status Date / Time mold Allergy Itching Verified 10/08/21 23:12 denosumab [From Prolia] AdvReac SEVERE Verified 10/08/21 23:12 CALCIUM LOSS morphine AdvReac Confusion Verified 10/08/21 23:12 DUST Allergy Itching Uncoded 10/08/21 19:45 Physical Exam Vitals: Vital Signs Temp Pulse Pulse Resp BP BP Pulse Ox 10/09/21 07:51 97 10/09/21 04:48 100.1 F H 100 16 174/91 97 10/09/21 02:23 99 F 98 16 177/92 99 10/09/21 01:11 99.1 F 101 H 16 170/83 98 10/09/21 00:31 99 20 174/95 99 10/08/21 19:41 98.0 F 97 16 153/83 99 Intake and Output 10/08/21 10/09/21 10/09/21 22:59 06:59 14:59 Other: Voiding Method Bedside Commode # Voids 1 Weight 38.555 kg 38.555 kg In general patient is alert and oriented x 3 in no distress HEENT head normocephalic and atraumatic Neck is supple no JVD no goiter no lymphadenopathy no carotid bruit Chest examination is clear to auscultation no crackles no wheezing Cardiac exam reveals regular heart sounds S1 and S2 no gallops no murmurs Abdomen is soft nontender no organomegaly with normal bowel sounds Extremity exam reveals no edema no cyanosis or clubbing Neurological examination reveals no gross focal deficits Results CBC & Chem 7: 10/08/21 20:01 10/08/21 20:01 Labs: Abnormal Lab Results - Last 24 Hours (Table) 10/08/21 10/08/21 Range/Units 20: 20:01 WBC 18.4 H (3.8-10.6) k/uL Hgb 11.0 L (11.4-16.0) gm/dL RDW 18.2 H (11.5-15.5) % Neutrophils # 16.3 H (1.3-7.7) k/uL BUN 25 H (7-17) mg/dL Creatinine 1.17 H (0.52-1.04) mg/dL Alkaline Phosphatase 233 H (38-126) U/L Thrombosis Risk Factor Assmnt - Choose All That Apply Any of the Below Risk Factors Present?: Yes Each Factor Represents 1 point: Abnormal pulmonary function (COPD), Serious lung disease incl. pneumonia (< 1month) Other Risk Factors: Yes Each Risk Factor Represents 2 Points: Age 61-74 years Other congenital or acquired thrombophilia - If yes, enter type in comment: No Thrombosis Risk Factor Assessment Total Risk Factor Score: 4 Thrombosis Risk Factor Assessment Level: Moderate Risk Assessment and Plan Plan: Pneumonia History of gastrectomy. Previous history of multiple episodes of aspiration pneumonia failure to thrive with severe weight loss dependent on TPN History of hypothyroidism History of chronic back pain History of chronic kidney disease History of stroke in the past History of depression anxiety disorder Pulmonary and infectious disease services have been consulted Home meds reordered Plans for bronchoscopy today per pulmonary 10/09/2021 Dietary consult placed for TPN Time with Patient: Greater than 30 (Greater than 60% of the total time spent in counseling and coordination of care)
[2021-10-09] MEDS ORDERED: SUCCINYLCHOLINE CHLORIDE 100 MG/5 ML SYR IV ONE (12:30)
[2021-10-09] MEDS ORDERED: PHENYLEPHRINE-0.9% NACL SYG 1,000 MCG/10 ML SYRINGE ONE (12:30)
[2021-10-09] MEDS ORDERED: PROPOFOL 10 MG/ML 20 ML VIAL IV ONE (12:30)
[2021-10-09] MEDS ORDERED: LIDOCAINE 2% INJ 20 MG/ML (2 ML VIAL) ONE (12:30)
[2021-10-09] MEDS ORDERED: IV FLUID CONTINUATION 1,000 ML IV ONE (12:33)
[2021-10-09] MEDS: FERROUS SULFATE 325 MG TAB PO SCH (13:39)
--- NOTE | 2021-10-09 14:17 | XR ---
EXAMINATION TYPE: XR chest 1V portable DATE OF EXAM: 10/09/2021 COMPARISON: 10/09/2021 HISTORY: Post navigational bronchoscopy. TECHNIQUE: Single frontal view of the chest is obtained. FINDINGS: No sizable pneumothorax. Bilateral large areas of irregular consolidation or mass and sugg estion of cavitation. Left-sided PICC line noted is hyperinflation suggesting COPD. Surgical upper ab domen noted. Underlying COPD and chronic interstitial lung disease suspected. IMPRESSION: No sizable pneumothorax. Persistent large areas of consolidation possible cavitation.
[2021-10-09 14:56] LABS: ALT 31 U/L (4-34); AST 36 U/L (14-36); African American GFR (CKD) 59 (>60 ml/min/1.73 sqM); Albumin 3.4 g/dL (3.5-5.0); Albumin/Globulin Ratio 1.2; Alkaline Phosphatase 232 U/L (38-126); Anion Gap 11 mmol/L; Blood Urea Nitrogen 18 mg/dL (7-17); Calcium 8.1 mg/dL (8.4-10.2); Carbon Dioxide 21 mmol/L (22-30); Chloride 107 mmol/L (98-107); Globulin 2.9 g/dL; Glucose 87 mg/dL (74-99); Magnesium 1.7 mg/dL (1.6-2.3); Non-African American GFR(CKD) 52 (>60 ml/min/1.73 sqM); Phosphorus 2.4 mg/dL (2.5-4.5); Potassium 3.5 mmol/L (3.5-5.1); Sodium 139 mmol/L (137-145); Total Bilirubin 0.4 mg/dL (0.2-1.3); Total Protein 6.3 g/dL (6.3-8.2)
--- NOTE | 2021-10-09 14:57 | P.CNPUL ---
History of Present Illness Consult date: 10/09/21 Requesting physician: Palmer Desir Reason for consult: dyspnea, chest pain, abnormal CXR/CT Chief complaint: Shortness of breath, chest and back pain History of present illness: This is a very pleasant 76-year-old female patient who is well-known to our service from multiple hospitalizations for recurrent aspiration pneumonia. Patient had a history of previous gastrectomy, chronic dysphagia, recurrent aspiration pneumonia, chronic malnutrition and failure to thrive, patient is maintained on TPN in addition to a soft diet by mouth. Patient also has history of chronic kidney disease stage III, hypothyroidism, migraine headaches, chronic pain syndrome, history of CVA, and history of PICC line infection and sepsis. Patient was recently hospitalized for recurrence of aspiration related p neumonia, falls at home following methadone dose increase, and acute on chronic kidney injury. Patient had persistent bilateral midlung opacities, patient had a PICC line inserted and prior hospitalizations for TPN infusion, and completed a course of IV Zosyn. Patient was referred to general surgery for possibility of jejunostomy tube insertion, however patient had previous gastrectomy at the [facility], and she was advised to follow-up with the [facility] on an outpatient basis. The patient was again discharged from here on 09/22/2021. She had been seen and evaluated by Dr. Sanchez in the office and had her scheduled for navigational bronchoscopy and biopsies as an outpatient today. She returned to the ER again yesterday as her eighth hospitalization this year. She is complaining of shortness of breath cough congestion, chest and back pain. Her chest x-ray continues to show irregular consolidation bilaterally. White count 18.4. Hemoglobin 11.0. Platelets 431. Sodium 137. Potassium 3.8. BUN 25. Creatinine 1.17. AST 22. ALT 29. Glucose 98. He was initiated and DuoNeb inhalations, Symbicort and Zosyn. We did keep her on the Bronch schedule and she had biopsies today as well as a BAL of the left lower lobe. Cultures and pathology pending. Review of Systems REVIEW OF SYSTEMS: CONSTITUTIONAL: Denies any recent significant weight loss or weight gain. EYES: Denies change in vision. EARS, NOSE, MOUTH, THROAT: Denies headaches, denies sore throat. CARDIOVASCULAR: Positive for chest wall and back pain. RESPIRATORY: Positive for shortness of breath, cough, congestion no hemoptysis. GASTROINTESTINAL: Denies change in appetite, denies abdominal pain GENITOURINARY: Denies hematuria, denies infections. MUSKULOSKELETAL: Denies pain, denies swelling. INTEGUMENTARY: Denies rash, denies eczema. NEUROLOGICAL: Denies recent memory loss, no recent seizure activity. PSYCHIATRIC: Denies anxiety, denies depression. HEMATOLOGIC/LYMPHATIC: Denies anemia, denies enlarged lymph nodes. Past Medical History Past Medical History: Asthma, COPD, CVA/TIA, GERD/Reflux, Memory Impairment, Osteoarthritis (OA), Pneumonia, Renal Disease, Respiratory Disorder, Thyroid Disorder Additional Past Medical History / Comment(s): Aspiration, pneumonias, 1.2021 covid pneumonia, protein calorie malnutrition, pt was on TPN with PICC line managed thru [facility], chronic anemia, gastric ulcers/PUD, pancreatitis, bowel obstruction/surgery, constipation, CKD stage IV, TIA, chronic migraines, chronic back/cervical pain/spinal stenosis, hypothyroid, hyponatremia. DAILY TPN History of Any Multi-Drug Resistant Organisms: None Reported, Other MDRO Date of last positivie culture/infection: 2021 MDRO Source:: urine Past Surgical History: Back Surgery, Bowel Resection, Hysterectomy, Joint Replacement Additional Past Surgical History / Comment(s): LOWER BACK SURGERY lamenectomy/discetomy then had a revison of that sx. 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, nasal sx d/t broken nose, colonoscopy/egd, PAIN CLINIC PROCEDURES, PORT A CATH INSERTION, LT ADEOLA Past Anesthesia/Blood Transfusion Reactions: No Reported Reaction Additional Past Anesthesia/Blood Transfusion Reaction / Comment(s): PT RECEIVED BLOOD TRANSFUSIONS AFTER STOMACH SURGERY Past Psychological History: Anxiety, Depression, Panic Disorder Additional Psychological History / Comment(s): Pt resides alone in an apartment. She has a limited legal guardian, Rosario Oneal. There is a petition filed to modify LG. Pt states her sister, Kamilah Gann with eventually be her LG. She had [facility] home care for TPN. She uses a walker at times to ambulate. She no longer drives, her logistical engineer Jonn Parnell drives her to [employer]. She has ACT visits twice a week to check on her mental health. She recieves her meds in blister packs. Smoking Status: Never smoker Past Alcohol Use History: None Reported Past Drug Use History: None Reported - Past Family History Father Family Medical History: Cancer, Coronary Artery Disease (CAD) Additional Family Medical History / Comment(s): FATHER HAD BLADDER AND KIDNEY CANCER. FATHER HAD TB WHEN HE WAS A CHILD .FATHER AT AGE 87. Mother Family Medical History: Cancer Additional Family Medical History / Comment(s): MOTHER AT AGE 58 OF OVARIAN CANCER. Medications and Allergies Home Medications Medication Instructions Recorded Confirmed Type Ferrous Sulfate [Iron (65 MG 325 mg PO DAILY@1200 11/06/15 10/08/21 History Elemental)] calcitrioL [Calcitriol] 1 mcg PO MOWEFR 06/07/19 10/08/21 History busPIRone HCL [Buspar] 30 mg PO BID 04/14/20 10/08/21 History Butalb/APAP/Caff 50-325-40Mg 1 tab PO Q6H PRN 06/30/20 10/08/21 History [Fioricet 50-325-40] buPROPion XL [Wellbutrin XL] 300 mg PO DAILY 02/20/21 10/08/21 History Albuterol Sulfate [Albuterol 2 puff INHALATION RT-Q6H PRN 04/07/21 10/08/21 History Sulfate Hfa] Budesonide/Formoterol Fumarate 2 puff INHALATION RT-BID 04/07/21 10/08/21 History [Symbicort 160-4.5 Mcg Inhaler] Aspirin EC [Ecotrin Low Dose] 81 mg PO DAILY 05/12/21 10/08/21 History Levothyroxine Sodium [Synthroid] 100 mcg PO DAILY@0630 30 Days #30 06/19/21 10/08/21 Rx tab Furosemide [Lasix] 20 mg PO DAILY PRN 08/08/21 10/08/21 History Omeprazole 20 mg PO DAILY 08/08/21 10/08/21 History hydrOXYzine pamoate [Vistaril] 50 mg PO TID 08/08/21 10/08/21 History polyethylene glycoL 3350 [Miralax] 17 gm PO DAILY PRN 08/08/21 10/08/21 History Sodium Bicarbonate Tab 650 mg PO DAILY 30 Days #30 tab 08/21/21 10/08/21 Rx Mirtazapine [Remeron] 45 mg PO HS 09/01/21 10/08/21 History Ondansetron [Zofran] 4 mg PO Q6H PRN 09/01/21 10/08/21 History Methadone [Dolophine] 20 mg PO BID tab 09/10/21 10/08/21 Rx Potassium Chloride ER [K-Dur 10] 30 meq PO DAILY PRN 10/08/21 10/08/21 History buPROPion XL [Wellbutrin XL] 150 mg PO DAILY 10/08/21 10/08/21 History predniSONE [Deltasone] See Taper PO DIRECTED 10/08/21 10/08/21 History Allergies Allergy/AdvReac Type Severity Reaction Status Date / Time mold Allergy Itching Verified 10/08/21 23:12 denosumab [From Prolia] AdvReac SEVERE Verified 10/08/21 23:12 CALCIUM LOSS morphine AdvReac Confusion Verified 10/08/21 23:12 DUST Allergy Itching Uncoded 10/08/21 19:45 Physical Exam Vitals: Vital Signs Temp Pulse Pulse Resp BP BP Pulse Ox 10/09/21 13:57 98 20 169/79 94 L 10/09/21 13:42 106 H 20 165/77 95 10/09/21 13:27 116 H 16 190/90 94 L 10/09/21 07:51 97 10/09/21 04:48 100.1 F H 100 16 174/91 97 10/09/21 02:23 99 F 98 16 177/92 99 10/09/21 01:11 99.1 F 101 H 16 170/83 98 10/09/21 00:31 99 20 174/95 99 10/08/21 19:41 98.0 F 97 16 153/83 99 Intake and Output 10/08/21 10/09/21 10/09/21 22:59 06:59 14:59 Intake Total 450 Balance 450 Intake: IV 450 Other: Voiding Method Bedside Commode # Voids 1 Weight 38.555 kg 38.555 kg GENERAL EXAM: Alert, frail, cachectic 76-year-old female patient on room air, comfortable in no apparent distress. HEAD: Normocephalic. EYES: Normal reaction of pupils, equal size. NOSE: Clear with pink turbinates. THROAT: No erythema or exudates. NECK: No masses, no JVD. CHEST: No chest wall deformity. LUNGS: Equal air entry with bilateral scattered rhonchi. CVS: S1 and S2 normal with no audible murmur, regular rhythm. ABDOMEN: No hepatosplenomegaly, normal bowel sounds, no guarding or rigidity. SPINE: No scoliosis or deformity SKIN: No rashes CENTRAL NERVOUS SYSTEM: No focal deficits, tone is normal in all 4 extremities. EXTREMITIES: Left upper extremity PICC line in place. There is no peripheral edema. No clubbing, no cyanosis. Peripheral pulses are intact. Results - Laboratory Findings CBC and BMP: 10/08/21 20:01 10/08/21 20:01 PT/INR, D-dimer PT 9.9 sec (9.0-12.0) 10/08/21 20:01 INR 0.9 (<1.2) 10/08/21 20:01 Abnormal lab findings: Abnormal Labs 10/08/21 10/08/21 20:01 20:01 WBC 18.4 H Hgb 11.0 L RDW 18.2 H Neutrophils # 16.3 H BUN 25 H Creatinine 1.17 H Alkaline Phosphatase 233 H Assessment and Plan Assessment: 1 Bilateral rib pain, cough related to recurrent aspiration, patient is recovering from recent aspiration related pneumonia. She has a left upper extremity PICC line in place and was most recently on Zosyn. The patient has had 8 hospitalizations this year. Chest x-ray showed multifocal bilateral areas of consolidation. She did undergo navigational bronchoscopy with biopsies and BAL of the left lower lobe today 10/09/2021. 2 Chronic pain syndrome, most recently on methadone for pain control 3 Chronic kidney disease stage III at baseline 4 Malnutrition and failure to thrive 5 Recurrent aspiration with multiple hospitalizations, patient is currently on TPN for nutritional support in addition to some oral feedings on soft diet 6 History of gastrectomy and the patient was to follow-up at the [facility] who did her original surgery. 7 Recent hospitalization for urinary tract infection, related to enterococcus faecalis 8 Chronic pain syndrome 9 Previous history of CVA 10 History of hypothyroidism 11 History of spinal stenosis and chronic back pain 12 History of chronic anemia of chronic disease 13 Anxiety/depression Plan: The patient was seen and evaluated Chest x-ray, medications and labs reviewed She did undergo navigational bronchoscopy with biopsies and BAL today Cultures and pathology pending Currently on Zosyn, bronchodilators We will continue to follow and make further recommendations based on her clinical status I have personally seen and examined the patient, performed the documentation and the assessment and plan as written. Number of minutes spent on the visit: 20.
--- NOTE | 2021-10-09 15:24 | CT ---
EXAMINATION TYPE: CT Chest wo con Veran Protocol DATE OF EXAM: 10/09/2021 COMPARISON: CT dated 06/28/2021 HISTORY: [facility] Bronch w Dr. Sanchez 1230 CT DLP: 526 mGycm Automated exposure control for dose reduction was used. TECHNIQUE: Multiple unenhanced CT scan of the chest as per VERAN protocol. FINDINGS: Slightly improved infiltration along the left upper lobe posterior segment with a slightly smaller le ft pleural effusion. Persistent scattered areas of consolidation, soft tissue infiltration, traction bronchiectasis with architectural distortion in the right upper lobe posteriorly. Soft tissue nodules are seen in both lungs largest in the left lower lobe measuring up to 16 mm. Increasing nodularity at the inferior aspect of the right lower lobe. Patent trachea and main bronchi . Mild cardiomegaly with coronary and arterial atherosclerotic calcification. Dilated ascending aorta measuring up to 4 cm. Left-sided PICC line with the tip at the inferior aspect of the SVC. Small per icardial fluid. No pathologically enlarged lymph nodes by this nonenhanced CT scan yet cannot be totally excluded. Sen rgical clips are seen in the upper abdomen and gastroesophageal junction. Bulky spleen. Hyperdensity in the left upper renal cortex, possibly representing hemorrhagic cyst/calcification. No gross aggres sive bone lesion. IMPRESSION: Bronchial navigation CT scan demonstrating interval changes as described above. The pulmonary changes could be related to chronic atypical infection however underlying malignant process cannot be exclud ed. Further PET scan assessment can be considered. Other findings as described above.
[2021-10-09] MEDS: PIPERACILLIN-TAZOBACTAM 3.375 GM in SODIUM CHLORIDE 0.9% 100 ML IVPB SCH ×2 (15:46→23:10)
[2021-10-09] MEDS ORDERED: FAT EMULSION 20% 500 ML in EMPTY BAG 1 BAG IV SCH (17:00)
[2021-10-09] MEDS ORDERED: MVI, ADULT NO.4 WITH VIT K 10 ML, TRACE (CONC-1ML/DOSE) 1 ML in AMINO ACID 5%-D20W+LYTE... IV SCH ×3 (17:00)
[2021-10-09] MEDS: SYMBICORT 160-4.5 MCG INHALER INHALATION SCH (18:49)
[2021-10-09] MEDS: MIRTAZAPINE 45 MG TABLET PO SCH (22:02)
--- NOTE | 2021-10-09 22:10 | PCN ---
PROCEDURE NOTE PULMONARY/CRITICAL CARE PROCEDURE NOTE: PROCEDURE PERFORMED: Navigational bronchoscopy. PREOP DIAGNOSIS: Recurrent pneumonia, rule out cancer. POSTOP DIAGNOSIS: Recurrent pneumonia, rule out cancer. OPERATORS: Dr. Sanchez and Dr. Grace. PROCEDURE DETAILS: The procedure was done in room #1 Endoscopy. The patient was under general anesthesia. There was informed consent and universal timeout. The procedure was navigational bronchoscopy with airway examination, therapeutic lavage, BAL, multiple transbronchial biopsies, brushes and washes. The biopsy took place in the right lower lobe and also on the left lower lobe. The left lower lobe was the area that we did brushes and the washes. The patient was prepared in the usual fashion. The patient was intubated on the effects of general anesthesia. Bronchoscope was inserted through the bronchoscope adapter connected to the endotracheal tube. Under electromagnetic Veran guidance, the bronchoscope was positioned into the proper location and the left lower lobe. Multiple transbronchial biopsies, brushes and washes were done in this area. In addition, under electromagnetic guidance, the biopsy forceps were positioned properly in the right lower lobe and we could only get 1 biopsy from this area. The patient tolerated procedure well. There was no immediate complication. There was minimal bleeding. There was no significant bleeding. The patient was stable throughout the procedure. The bronchoscope was withdrawn and the patient will be recovered. The specimens were sent to the laboratory for analysis. Again, this included transbronchial biopsies, left lower lobe washes, left lower lobe brushes left lower lobe, and 1 biopsy from the right lower lobe. MMODL / IJN: [id number] /
--- NOTE | 2021-10-09 23:26 | P.CONS ---
History of Present Illness - Reason for Consult Consult date: 10/09/21 pneumonia Requesting physician: Palmer Desir - Chief Complaint shortness of breath x few days - History of Present Illness History of Present Illness : Patient is a 76 female with a past medical history significant for gastrectomy history of recurrent aspiration p neumonia and TPN dependent with multiple admission to the hospital, patient was advised jejunostomy tube for feeding and was supposed to follow-up at of however she did not go patient was recently treated for pneumonia and she supposed to have outpatient bronchoscopy apparently there was not done patient now presenting to the [facility] ER last night for evaluation of increasing shortness of breath patient also have a congested cough and is complaining of some chest and back pain patient mention she will be bringing up some sputum but no hemoptysis denies any nausea no vomiting and no diarrhea on presentation to the hospital the patient was afebrile initially however she did have low-grade fever 100.1 this morning patient did received dose of Rocephin in the ER last night patient subsequently has been admitted infectious he was consulted for further management patient did have a chest x-ray evidence of bilateral pulm infiltrate similar to the old exam patient has been evaluated by pulmonary and she did have a bronchoscopy and is status post lavage and biopsy infectious disease was consulted for further management of antibiotic therapy subsequently did have a CT of the chest slightly improve infiltrate along the left upper lobe scattered areas of consolidation and soft tissue infiltration mostly in the left lower lobe Review of system: CONSTITUTIONAL: Positive for weakness low-grade fever. EYES: No complaint. ENT: No complaint. RESPIRATORY: As per history of present illness. CARDIOVASCULAR: No complaint. GENITOURINARY: No complaint. GASTROINTESTINAL: As per history of present illness. MUSCULOSKELETAL: No complaint. INTEGUMENTARY : No complaint. PSYCHOLOGIC: No complaint. ENDOCRINE: No complaint. NEUROLOGIC: No complaint. Past medical history : Reviewed, documented below Past surgical history : Reviewed, documented below Social history: Reviewed, documented below Medications: Reviewed, as documented below EXAMINATION: Vital sigans= Reviewed and documented below GENERAL DESCRIPTION: Elderly female lying in bed, no distress. No tachypnea or accessory muscle of respiration use. HEENT: Shows Pallor , no scleral icterus. Oral mucous membrane is dry. NECK: Trachea central, no thyromegaly. LUNGS: Unlabored breathing. Decreased breath sound at the base HEART: S1, S2, regular rate and rhythm. ABDOMEN: Soft, no tenderness , guarding or rigidity EXTREMITIES: No edema feet SKIN: No rash, no masses palpable. NEUROLOGICAL: The patient is awake, alert, oriented x3, mood and affect normal. LABS AND RADIOLOGY: Reviewed results see below Assessment : Patient presented to hospital with increasing shortness of breath congested cough in this patient who do have a history of recurrent aspiration pneumonia and concerning for another episode of aspiration pneumonia in this patient who is status post bronchoscopy and lavage and biopsy concerning for possible underlying malignancy not excluded Plan: 1-patient be started empirically on Zosyn while waiting for the culture to finalize 2-BAL culture and biopsy will be followed 3-aspiration precautions We will follow on clinical condition and cultures to further adjust medication if needed Thank you for this consultation we will follow the patient along with you Past Medical History Past Medical History: Asthma, COPD, CVA/TIA, GERD/Reflux, Memory Impairment, Osteoarthritis (OA), Pneumonia, Renal Disease, Respiratory Disorder, Thyroid Disorder Additional Past Medical History / Comment(s): Aspiration, pneumonias, 1.2021 covid pneumonia, protein calorie malnutrition, pt was on TPN with PICC line managed thru [facility], chronic anemia, gastric ulcers/PUD, pancreatitis, bowel obstruction/surgery, constipation, CKD stage IV, TIA, chronic migraines, chronic back/cervical pain/spinal stenosis, hypothyroid, hyponatremia. DAILY TPN History of Any Multi-Drug Resistant Organisms: None Reported, Other MDRO Year Discovered:: 2021 MDRO Source:: urine Past Surgical History: Back Surgery, Bowel Resection, Hysterectomy, Joint Replacement Additional Past Surgical History / Comment(s): LOWER BACK SURGERY lamenectomy/discetomy then had a revison of that sx. 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 She has a limited legal guardian, Rosario Oneal. There is a petition filed to modify LG. Pt states her sister, Kamilah Gann with eventually be her LG. She had [facility] home care for TPN. She uses a walker at times to ambulate. She no longer drives, her electronic warfare linguist Jonn Parnell drives her to appts. She has ACT visits twice a week to check on her mental health. She recieves her meds in blister packs. Smoking Status: Never smoker Past Alcohol Use History: None Reported Past Drug Use History: None Reported - Past Family History Father Family Medical History: Cancer, Coronary Artery Disease (CAD) Additional Family Medical History / Comment(s): FATHER HAD BLADDER AND KIDNEY CANCER. FATHER HAD TB WHEN HE WAS A CHILD .FATHER AT AGE 87. Mother Family Medical History: Cancer Additional Family Medical History / Comment(s): MOTHER AT AGE 58 OF OVARIAN CANCER. Medications and Allergies Home Medications Medication Instructions Recorded Confirmed Type Ferrous Sulfate [Iron (65 MG 325 mg PO DAILY@1200 11/06/15 10/08/21 History Elemental)] calcitrioL [Calcitriol] 1 mcg PO MOWEFR 06/07/19 10/08/21 History busPIRone HCL [Buspar] 30 mg PO BID 04/14/20 10/08/21 History Butalb/APAP/Caff 50-325-40Mg 1 tab PO Q6H PRN 06/30/20 10/08/21 History [Fioricet 50-325-40] buPROPion XL [Wellbutrin XL] 300 mg PO DAILY 02/20/21 10/08/21 History Albuterol Sulfate [Albuterol 2 puff INHALATION RT-Q6H PRN 04/07/21 10/08/21 History Sulfate Hfa] Budesonide/Formoterol Fumarate 2 puff INHALATION RT-BID 04/07/21 10/08/21 History [Symbicort 160-4.5 Mcg Inhaler] Aspirin EC [Ecotrin Low Dose] 81 mg PO DAILY 05/12/21 10/08/21 History Levothyroxine Sodium [Synthroid] 100 mcg PO DAILY@0630 30 Days #30 06/19/21 10/08/21 Rx tab Furosemide [Lasix] 20 mg PO DAILY PRN 08/08/21 10/08/21 History Omeprazole 20 mg PO DAILY 08/08/21 10/08/21 History hydrOXYzine pamoate [Vistaril] 50 mg PO TID 08/08/21 10/08/21 History polyethylene glycoL 3350 [Miralax] 17 gm PO DAILY PRN 08/08/21 10/08/21 History Sodium Bicarbonate Tab 650 mg PO DAILY 30 Days #30 tab 08/21/21 10/08/21 Rx Mirtazapine [Remeron] 45 mg PO HS 09/01/21 10/08/21 History Ondansetron [Zofran] 4 mg PO Q6H PRN 09/01/21 10/08/21 History Methadone [Dolophine] 20 mg PO BID tab 09/10/21 10/08/21 Rx Potassium Chloride ER [K-Dur 10] 30 meq PO DAILY PRN 10/08/21 10/08/21 History buPROPion XL [Wellbutrin XL] 150 mg PO DAILY 10/08/21 10/08/21 History predniSONE [Deltasone] See Taper PO DIRECTED 10/08/21 10/08/21 History Allergies Allergy/AdvReac Type Severity Reaction Status Date / Time mold Allergy Itching Verified 10/08/21 23:12 denosumab [From Prolia] AdvReac SEVERE Verified 10/08/21 23:12 CALCIUM LOSS morphine AdvReac Confusion Verified 10/08/21 23:12 DUST Allergy Itching Uncoded 10/08/21 19:45 Physical Exam Vitals: Vital Signs Temp Pulse Pulse Resp BP BP Pulse Ox 10/09/21 23:00 93 L 10/09/21 19:57 98.9 F 99 16 150/78 93 L 10/09/21 19:05 110 H 10/09/21 18:55 104 H 10/09/21 13:57 98 20 169/79 94 L 10/09/21 13:42 106 H 20 165/77 95 10/09/21 13:27 116 H 16 190/90 94 L 10/09/21 07:51 97 10/09/21 04:48 100.1 F H 100 16 174/91 97 10/09/21 02:23 99 F 98 16 177/92 99 10/09/21 01:11 99.1 F 101 H 16 170/83 98 10/09/21 00:31 99 20 174/95 99 Intake and Output 10/09/21 10/09/21 10/10/21 14:59 22:59 06:59 Intake Total 450 Balance 450 Intake: IV 450 Other: # Voids 2 Weight 38.555 kg Results CBC & Chem 7: 10/10/21 06:21 10/10/21 06:21 Labs: Abnormal Lab Results - Last 24 Hours (Table) 10/08/21 10/09/21 Range/Units 20:01 14:28 Carbon Dioxide 21 L (22-30) mmol/L BUN 18 H (7-17) mg/dL Creatinine 1.07 H (0.52-1.04) mg/dL Calcium 8.1 L (8.4-10.2) mg/dL Phosphorus 2.4 L (2.5-4.5) mg/dL Alkaline Phosphatase 232 H (38-126) U/L Albumin 3.4 L (3.5-5.0) g/dL Procalcitonin 0.16 H (0.02-0.09) ng/mL
[2021-10-10 00:34] LABS: Appearance,BF Slightly Cloudy
[2021-10-10] MEDS: HYDROmorphone 1 MG/ML 1 ML SYRINGE IVP PRN ×6 (01:05→22:07)
[2021-10-10] MEDS: BUTALB/APAP/CAFF 50-325-40MG TAB PO PRN ×3 (04:11→19:11)
[2021-10-10] MEDS: SODIUM CHLORIDE 0.9% 1,000 ML IV SCH ×2 (05:08→15:53)
[2021-10-10] MEDS: LEVOTHYROXINE 100 MCG TAB PO SCH (05:58)
[2021-10-10] MEDS: SYMBICORT 160-4.5 MCG INHALER INHALATION SCH ×2 (07:17→20:12)
[2021-10-10 07:55] LABS: ALT 23 U/L (4-34); AST 26 U/L (14-36); African American GFR (CKD) 58 (>60 ml/min/1.73 sqM); Albumin 3.4 g/dL (3.5-5.0); Albumin/Globulin Ratio 1.3; Alkaline Phosphatase 194 U/L (38-126); Anion Gap 10 mmol/L; Blood Urea Nitrogen 16 mg/dL (7-17); Calcium 7.9 mg/dL (8.4-10.2); Carbon Dioxide 22 mmol/L (22-30); Chloride 105 mmol/L (98-107); Globulin 2.6 g/dL; Glucose 129 mg/dL (74-99); Magnesium 1.5 mg/dL (1.6-2.3); Non-African American GFR(CKD) 50 (>60 ml/min/1.73 sqM); Potassium 3.6 mmol/L (3.5-5.1); Sodium 137 mmol/L (137-145); Total Bilirubin 0.4 mg/dL (0.2-1.3)
[2021-10-10 08:01] LABS: Ionized Calcium 4.5 mg/dL (4.5-5.3)
[2021-10-10 08:08] LABS: C Reactive Protein 11.6 mg/dL (<1.0)
[2021-10-10] MEDS: METHADONE 10 MG TAB PO SCH ×2 (08:11→20:23)
[2021-10-10] MEDS: hydrOXYzine pamoate 25 MG CAP PO SCH ×3 (08:11→20:23)
[2021-10-10] MEDS: ASPIRIN 81 MG PO SCH (08:12)
[2021-10-10] MEDS: PANTOPRAZOLE 40 MG TABLET PO SCH (08:12)
[2021-10-10] MEDS: busPIRone HCl 10 MG TAB PO SCH ×2 (08:12→20:23)
[2021-10-10] MEDS: FERROUS SULFATE 325 MG TAB PO SCH (08:12)
[2021-10-10] MEDS: PIPERACILLIN-TAZOBACTAM 3.375 GM in SODIUM CHLORIDE 0.9% 100 ML IVPB SCH ×2 (08:12→15:45)
[2021-10-10] MEDS: SODIUM BICARBONATE TAB 650 MG TAB PO SCH (08:12)
[2021-10-10] MEDS: buPROPion XL 150 MG TAB.ER.24H PO SCH (08:13)
[2021-10-10] MEDS: buPROPion XL 300 MG TAB.ER.24H PO SCH (08:13)
[2021-10-10 10:22] LABS: Basophils # (A) 0.06 X 10*3/uL (0.00-0.10); Basophils % (A) 0.3 %; Eosinophils # (A) 0.65 X 10*3/uL (0.04-0.35); Eosinophils % (A) 3.3 %; HCT 31.3 % (37.2-46.3); HGB 9.5 g/dL (12.0-15.0); Lymphocytes # (A) 1.16 X 10*3/uL (0.90-5.00); Lymphocytes % (A) 5.9 %; MCH 27.4 pg (27.0-32.0); MCHC 30.4 g/dL (32.0-37.0); MCV 90.2 fL (80.0-97.0); Mean Platelet Volume 10.2 fL (9.5-12.2); Monocytes % (A) 7.1 %; Neutrophils # (A) 16.36 X 10*3/uL (1.80-7.70); Neutrophils % (A) 82.7 %; Platelet Count 300 X 10*3/uL (140-440); RBC 3.47 X 10*6/uL (4.10-5.20); RDW 18.6 % (11.5-14.5); WBC 19.76 X 10*3/uL (4.50-10.00)
[2021-10-10 10:23] LABS: Immature Grans, Automated 0.7 %; NRBC Per 100 WBC 0 /100 WBCS (0.0-0.0)
--- NOTE | 2021-10-10 10:43 | P.PN ---
Subjective Progress Note Date: 10/10/21 Principal diagnosis: Chronic pneumonia and chest x-ray abnormalities. This is a very pleasant 76-year-old female patient who is well-known to our service from multiple hospitalizations for recurrent aspiration pneumonia. Patient had a history of previous gastrectomy, chronic dysphagia, recurrent aspiration pneumonia, chronic malnutrition and failure to thrive, patient is maintained on TPN in addition to a soft diet by mouth. Patient also has history of chronic kidney disease stage III, hypothyroidism, migraine headaches, chronic pain syndrome, history of CVA, and history of PICC line infection and sepsis. Patient was recently hospitalized for recurrence of aspiration related pneumonia, falls at home following methadone dose increase, and acute on chronic kidney injury. Patient had persistent bilateral midlung opacities, patient had a PICC line inserted and prior hospitalizations for TPN infusion, and completed a course of IV Zosyn. Patient was referred to general surgery for possibility of jejunostomy tube insertion, however patient had previous gastrectomy at the [facility], and she was advised to follow-up with the [facility] on an outpatient basis. The patient was again discharged from here on 09/22/2021. She had been seen and evaluated by Dr. Sanchez in the office and had her scheduled for navigational bronchoscopy and biopsies as an outpatient today. She returned to the ER again yesterday as her eighth hospitalization this year. She is complaining of shortness of breath cough congestion, chest and back pain. Her chest x-ray continues to show irregular consolidation bilaterally. White count 18.4. Hemoglobin 11.0. Platelets 431. Sodium 137. Potassium 3.8. BUN 25. Creatinine 1.17. AST 22. ALT 29. Glucose 98. He was initiated and DuoNeb inhalations, Symbicort and Zosyn. We did keep her on the Bronch schedule and she had biopsies today as well as a BAL of the left lower lobe. Cultures and pathology pending. Progress note dated 10/10/2021. 76-year-old female well-known to us. The patient underwent navigational procedure yesterday, but biopsies of lesions in the right lung and left lung. Most of the biopsies and sampling stent placed in the left lung. The patient had brushes and washings as well. The patient is resting comfortably in her room. She is seen in room 517. She is on room air. She is receiving her TPN and some IV fluids. She appears to be relatively stable. The patient has had 8 admissions to the hospital, and 2020, and at additional admissions to the hospital, thus far this year. We had a long conversation about the importance of not coming to the hospital so frequently, as the patient never really appears to be sick. In addition, looking back at her microbiologic samples over the many admissions, she had mostly abnormal urines, suggesting urinary tract infections, and had one positive blood culture for Pseudomonas. She never had any positive sampling from the lung in the way of a sputum or bronchoscopy. White count 19.76, hemoglobin 9.5, hematocrit 31.3, and platelet count 300,000. Electrolytes look relatively normal. Creatinines a elevated at 1.09. Glucose 129, calcium 7.9, phosphorous 2, magnesium 1.5. Results from the bronchoscopy and biopsy yesterday, are currently pending. Objective - Vital Signs Vital signs: Vital Signs Temp 98.8 F 10/10/21 08:00 Pulse 98 10/10/21 08:00 Resp 16 10/10/21 08:00 BP 158/80 10/10/21 08:00 Pulse Ox 96 10/10/21 08:00 FiO2 21 10/10/21 07:16 Intake & Output 10/09/21 10/10/21 10/10/21 18:59 06:59 18:59 Intake Total 450 2640 Balance 450 2640 Weight 38.555 kg Intake: IV 450 Intake, IV Titration 2240 Amount Fat Emulsion 20% 500 ml 480 In Empty Bag 1 bag @ 42 mls/hr IV We [facility] Rx#: [id number] Mvi, Adult No.4 with Vit 360 K 10 ml Trace (Conc-1Ml/ Dose) 1 ml In Amino Acid 5%-D20w+Lytes*E* 1,000 ml @ 30 mls/hr IV .Q24H [facility] Rx#:[id number] Piperacillin-Tazobactam 3 200 .375 gm In Sodium Chloride 0.9% 100 ml @ 25 mls/hr IVPB Q8HR [facility] Rx# :[id number] Sodium Chloride 0.9% 1, 1200 000 ml @ 100 mls/hr IV . Q10H [facility] Rx#:[id number] Oral 400 Other: Voiding Method Bedside Commode # Voids 2 5 - Exam No acute distress, oriented 3. Currently on room air. Very frail appearing. No conversational dyspnea or use of accessory muscles. HEENT examination is grossly unremarkable. Neck supple. Full range of motion. No adenopathy thyromegaly or neck vein distention. Cardiovascular examination reveals regular rhythm rate. S1-S2 normal. No S3 or S4. No discernible murmur noted. Heart rate 90 bpm. Lungs reveal scattered mild rhonchi. No wheezes. No crackles. Breath sounds equal bilaterally. Abdomen soft bowel sounds are heard. No masses or tenderness. Extremities are intact. No cyanosis clubbing or edema. Skin is without rash or lesion. Neurologic examination is brief but nonfocal. - Labs CBC & Chem 7: 10/10/21 06:21 10/10/21 06:21 Labs: Abnormal Lab Results - Last 24 Hours (Table) 10/08/21 10/09/21 10/10/21 Range/Units 20:01 14:28 06:21 WBC (4.50-10.00) X 10*3/uL RBC (4.10-5.20) X 10*6/uL Hgb (12.0-15.0) g/dL Hct (37.2-46.3) % MCHC (32.0-37.0) g/dL RDW (11.5-14.5) % Immature Gran # (0.00-0.04) X 10*3/uL Neutrophils # (1.80-7.70) X 10*3/uL Monocytes # (0.20-1.00) X 10*3/uL Eosinophils # (0.04-0.35) X 10*3/uL Carbon Dioxide 21 L (22-30) mmol/L BUN 18 H (7-17) mg/dL Creatinine 1.07 H 1.09 H (0.52-1.04) mg/dL Glucose 129 H (74-99) mg/dL Calcium 8.1 L 7.9 L (8.4-10.2) mg/dL Phosphorus 2.4 L 2.0 L (2.5-4.5) mg/dL Magnesium 1.5 L (1.6-2.3) mg/dL Alkaline Phosphatase 232 H 194 H (38-126) U/L C-Reactive Protein 11.6 H (<1.0) mg/dL Total Protein 6.0 L (6.3-8.2) g/dL Albumin 3.4 L 3.4 L (3.5-5.0) g/dL Procalcitonin 0.16 H (0.02-0.09) ng/mL 10/10/21 Range/Units 06:21 WBC 19.76 H (4.50-10.00) X 10*3/uL RBC 3.47 L (4.10-5.20) X 10*6/uL Hgb 9.5 L (12.0-15.0) g/dL Hct 31.3 L (37.2-46.3) % MCHC 30.4 L (32.0-37.0) g/dL RDW 18.6 H (11.5-14.5) % Immature Gran # 0.13 H (0.00-0.04) X 10*3/uL Neutrophils # 16.36 H (1.80-7.70) X 10*3/uL Monocytes # 1.40 H (0.20-1.00) X 10*3/uL Eosinophils # 0.65 H (0.04-0.35) X 10*3/uL Carbon Dioxide (22-30) mmol/L BUN (7-17) mg/dL Creatinine (0.52-1.04) mg/dL Glucose (74-99) mg/dL Calcium (8.4-10.2) mg/dL Phosphorus (2.5-4.5) mg/dL Magnesium (1.6-2.3) mg/dL Alkaline Phosphatase (38-126) U/L C-Reactive Protein (<1.0) mg/dL Total Protein (6.3-8.2) g/dL Albumin (3.5-5.0) g/dL Procalcitonin (0.02-0.09) ng/mL Microbiology - Last 24 Hours (Table) 10/09/21 13:00 Bronchial Washings Culture - Preliminary Bronchial Brushings - Left 10/09/21 13:00 Fungal Culture - Preliminary Bronchial Brushings - Left 10/09/21 13:00 Acid Fast Bacilli Culture - Preliminary Bronchial Brushings - Left Assessment and Plan Assessment: Chronic bilateral infiltrates, with an essentially unchanging chest x-ray, thought to be related to pneumonia, although, could relate to something more ominous. The patient underwent electromagnetic navigational bronchoscopy, October 09, with biopsies of both right and left lung lesions, washes, and brushes. Those results are currently pending. Chronic pain syndrome. Chronic kidney disease, stage III. Anorexia/cachexia syndrome. Recurrent aspiration, currently on TPN. Previous history of gastrectomy. Multiple admissions for urinary tract infection, most recently, enterococcus faecalis. Previous history of CVA. Hypothyroidism. History of spinal stenosis/chronic back pain. Anemia of chronic disease. Anxiety/depression. Plan: Plan dated 10/10/2021. The patient is currently doing well. She was placed on Zosyn by infectious diseases. I'm not sure that she even needs antibiotics at this time. We'll await culture data. Biopsies from yesterday are pending. Washes and brushes are also pending. The patient has had 8 admissions to the hospital in 2020, and are ready 8 admissions to the hospital 2021. We will continue to follow and make recommendations. Prognosis is guarded. Time with Patient: Less than 30
--- NOTE | 2021-10-10 18:48 | P.PN ---
Subjective Progress Note Date: 10/10/21 Louise Sutton, is a 76-year-old female, who presented to [facility] emergency room with a chief complaint of worsening shortness of breath. She was evaluated in the emergency room vital examination on presentation revealed a temperature of 98 pulse 97 respiration 16 blood pressure 153/83 pulse ox 99% on room air Laboratory data revealed a white blood count of 18.4 hemoglobin 11.2 platelet count 431 BUN 25 creatinine 1.17 alkaline phosphatase 233 troponin less than 0.012 Testing in the emergency room revealed chest x-ray done in the emergency room revealed by basilar infiltrates and new cavitation in the right upper lobe. Patient was admitted to medical floor for further evaluation and treatment Past medical history is significant for history of recurrent pneumonia likely related to aspiration, history of asthma, history of COPD, history of CVA, history of pancreatitis, history of gastrectomy, patient is dependent on TPN for her nutritional needs, history of hypothyroidism, history of chronic back pain maintained on narcotics for pain management, history of migraine headaches On 10/10/2021 patient was seen and examined on the medical floor she is alert and oriented 3 in no apparent distress there is no fever or chills no headache or dizziness no chest pain no shortness of breath she has occasional cough no nausea or vomiting no abdominal pain no diarrhea and no urinary symptoms her vital exam reveals a temperature of 98.8 pulse 98 respirations 16 blood pressure 158/80 pulse ox 96% on room air white blood count is 19.76 hemoglobin 9.5 platelet count 300 sodium 137 potassium 3.6 chloride 105 CO2 22 BUN 16 creatinine 1.09 Objective - Vital Signs Vital signs: Vital Signs Temp 99.8 F H 10/10/21 12:54 Pulse 98 10/10/21 12:54 Resp 18 10/10/21 12:54 BP 173/73 10/10/21 12:54 Pulse Ox 98 10/10/21 12:54 FiO2 21 10/10/21 07:16 Intake & Output 10/09/21 10/10/21 10/10/21 18:59 06:59 18:59 Intake Total 450 2640 Balance 450 2640 Weight 38.555 kg Intake: IV 450 Intake, IV Titration 2240 Amount Fat Emulsion 20% 500 ml 480 In Empty Bag 1 bag @ 42 mls/hr IV We [facility] Rx#: [id number] Mvi, Adult No.4 with Vit 360 K 10 ml Trace (Conc-1Ml/ Dose) 1 ml In Amino Acid 5%-D20w+Lytes*E* 1,000 ml @ 30 mls/hr IV .Q24H [facility] Rx#:[id number] Piperacillin-Tazobactam 3 200 .375 gm In Sodium Chloride 0.9% 100 ml @ 25 mls/hr IVPB Q8HR [facility] Rx# :[id number] Sodium Chloride 0.9% 1, 1200 000 ml @ 100 mls/hr IV . Q10H [facility] Rx#:[id number] Oral 400 Other: Voiding Method Bedside Commode Bedside Commode # Voids 2 5 - Exam In general patient is alert and oriented x 3 in no distress HEENT head normocephalic and atraumatic Neck is supple no JVD no goiter no lymphadenopathy no carotid bruit Chest examination is clear to auscultation no crackles no wheezing Cardiac exam reveals regular heart sounds S1 and S2 no gallops no murmurs Abdomen is soft nontender no organomegaly with normal bowel sounds Extremity exam reveals no edema no cyanosis or clubbing Neurological examination reveals no gross focal deficits - Labs CBC & Chem 7: 10/10/21 06:21 10/10/21 06:21 Labs: Abnormal Lab Results - Last 24 Hours (Table) 10/08/2110/09/10/10/21 Range/Units 20:01 14:28 06:21 WBC (4.50-10.00) X 10*3/uL RBC (4.10-5.20) X 10*6/uL Hgb (12.0-15.0) g/dL Hct (37.2-46.3) % MCHC (32.0-37.0) g/dL RDW (11.5-14.5) % Immature Gran # (0.00-0.04) X 10*3/uL Neutrophils # (1.80-7.70) X 10*3/uL Monocytes # (0.20-1.00) X 10*3/uL Eosinophils # (0.04-0.35) X 10*3/uL Carbon Dioxide 21 L (22-30) mmol/L BUN 18 H (7-17) mg/dL Creatinine 1.07 H 1.09 H (0.52-1.04) mg/dL Glucose 129 H (74-99) mg/dL Calcium 8.1 L 7.9 L (8.4-10.2) mg/dL Phosphorus 2.4 L 2.0 L (2.5-4.5) mg/dL Magnesium 1.5 L (1.6-2.3) mg/dL Alkaline Phosphatase 232 H 194 H (38-126) U/L C-Reactive Protein 11.6 H (<1.0) mg/dL Total Protein 6.0 L (6.3-8.2) g/dL Albumin 3.4 L 3.4 L (3.5-5.0) g/dL Procalcitonin 0.16 H (0.02-0.09) ng/mL 10/10/21 Range/Units 06:21 WBC 19.76 H (4.50-10.00) X 10*3/uL RBC 3.47 L (4.10-5.20) X 10*6/uL Hgb 9.5 L (12.0-15.0) g/dL Hct 31.3 L (37.2-46.3) % MCHC 30.4 L (32.0-37.0) g/dL RDW 18.6 H (11.5-14.5) % Immature Gran # 0.13 H (0.00-0.04) X 10*3/uL Neutrophils # 16.36 H (1.80-7.70) X 10*3/uL Monocytes # 1.40 H (0.20-1.00) X 10*3/uL Eosinophils # 0.65 H (0.04-0.35) X 10*3/uL Carbon Dioxide (22-30) mmol/L BUN (7-17) mg/dL Creatinine (0.52-1.04) mg/dL Glucose (74-99) mg/dL Calcium (8.4-10.2) mg/dL Phosphorus (2.5-4.5) mg/dL Magnesium (1.6-2.3) mg/dL Alkaline Phosphatase (38-126) U/L C-Reactive Protein (<1.0) mg/dL Total Protein (6.3-8.2) g/dL Albumin (3.5-5.0) g/dL Procalcitonin (0.02-0.09) ng/mL Microbiology - Last 24 Hours (Table) 10/09/21 13:00 Bronchial Washings Culture - Preliminary Bronchial Brushings - Left 10/09/21 13:00 Fungal Culture - Preliminary Bronchial Brushings - Left 10/09/21 13:00 Acid Fast Bacilli Culture - Preliminary Bronchial Brushings - Left Assessment and Plan Plan: Pneumonia History of gastrectomy. Previous history of multiple episodes of aspiration pneumonia failure to thrive with severe weight loss dependent on TPN History of hypothyroidism History of chronic back pain History of chronic kidney disease History of stroke in the past History of depression anxiety disorder Pulmonary and infectious disease services have been consulted Home meds reordered Plans for bronchoscopy today per pulmonary 10/09/2021 Dietary consult placed for TPN
[2021-10-10] MEDS: MIRTAZAPINE 45 MG TABLET PO SCH (20:23)
[2021-10-11] MEDS: PIPERACILLIN-TAZOBACTAM 3.375 GM in SODIUM CHLORIDE 0.9% 100 ML IVPB SCH ×3 (00:24→16:04)
[2021-10-11] MEDS: SODIUM CHLORIDE 0.9% 1,000 ML IV SCH ×3 (00:24→20:39)
[2021-10-11] MEDS: BUTALB/APAP/CAFF 50-325-40MG TAB PO PRN ×3 (00:50→20:38)
[2021-10-11] MEDS: HYDROmorphone 1 MG/ML 1 ML SYRINGE IVP PRN ×6 (01:40→22:51)
[2021-10-11] MEDS: 1: AMINO ACID 5%-D20W+LYTES*E* 1,000 ML 2: MVI, ADULT NO.4 WITH VIT K 10 ML, TRACE (CON IV SCH ×3 (05:06)
[2021-10-11] MEDS: LEVOTHYROXINE 100 MCG TAB PO SCH (05:07)
[2021-10-11] MEDS: SYMBICORT 160-4.5 MCG INHALER INHALATION SCH ×2 (07:13→19:26)
[2021-10-11] MEDS: hydrOXYzine pamoate 25 MG CAP PO SCH ×3 (08:09→20:37)
[2021-10-11] MEDS: METHADONE 10 MG TAB PO SCH ×2 (08:09→20:38)
[2021-10-11] MEDS: FERROUS SULFATE 325 MG TAB PO SCH (08:10)
[2021-10-11] MEDS: SODIUM BICARBONATE TAB 650 MG TAB PO SCH (08:10)
[2021-10-11] MEDS: PANTOPRAZOLE 40 MG TABLET PO SCH (08:10)
[2021-10-11] MEDS: busPIRone HCl 10 MG TAB PO SCH ×2 (08:10→20:38)
[2021-10-11] MEDS: ASPIRIN 81 MG PO SCH (08:11)
[2021-10-11] MEDS: buPROPion XL 300 MG TAB.ER.24H PO SCH (08:16)
[2021-10-11] MEDS: buPROPion XL 150 MG TAB.ER.24H PO SCH (08:16)
[2021-10-11 09:18] LABS: African American GFR (CKD) 53.2 (60.0-200.0); Anion Gap 13.5 mmol/L (10.00-18.00); BUN/Creat Ratio 13.93 Ratio (12.00-20.00); Blood Urea Nitrogen 16.3 mg/dL (9.0-27.0); Calcium 8.1 mg/dL (8.7-10.3); Carbon Dioxide 21.1 mmol/L (20.0-27.5); Magnesium 1.8 mg/dL (1.5-2.4); Non-African American GFR(CKD) 45.9 (60.0-200.0); Phosphorus 2.1 mg/dL (2.4-5.1); Potassium 4.3 mmol/L (3.5-5.5)
--- NOTE | 2021-10-11 09:36 | P.PN ---
Subjective Progress Note Date: 10/11/21 Louise Sutton, is a 76-year-old female, who presented to [facility] emergency room with a chief complaint of worsening shortness of breath. She was evaluated in the emergency room vital examination on presentation revealed a temperature of 98 pulse 97 respiration 16 blood pressure 153/83 pulse ox 99% on room air Laboratory data revealed a white blood count of 18.4 hemoglobin 11.2 platelet count 431 BUN 25 creatinine 1.17 alkaline phosphatase 233 troponin less than 0.012 Testing in the emergency room revealed chest x-ray done in the emergency room revealed by basilar infiltrates and new cavitation in the right upper lobe. Patient was admitted to medical floor for further evaluation and treatment Past medical history is significant for history of recurrent pneumonia likely related to aspiration, history of asthma, history of COPD, history of CVA, history of pancreatitis, history of gastrectomy, patient is dependent on TPN for her nutritional needs, history of hypothyroidism, history of chronic back pain maintained on narcotics for pain management, history of migraine headaches On 10/10/2021 patient was seen and examined on the medical floor she is alert and oriented 3 in no apparent distress there is no fever or chills no headache or dizziness no chest pain no shortness of breath she has occasional cough no nausea or vomiting no abdominal pain no diarrhea and no urinary symptoms her vital exam reveals a temperature of 98.8 pulse 98 respirations 16 blood pressure 158/80 pulse ox 96% on room air white blood count is 19.76 hemoglobin 9.5 platelet count 300 sodium 137 potassium 3.6 chloride 105 CO2 22 BUN 16 creatinine 1.09 On 10/11/2021 patient is alert and oriented 3. Patient remains on IV Zosyn cultures from bronchoscopy pending. Vital signs temp 98.4, pulse rate 98 as tolerated 18, blood pressure 165/83. patient oxygen saturation of 98% on room air Objective - Vital Signs Vital signs: Vital Signs Temp 98.4 F 10/11/21 04:32 Pulse 98 10/11/21 04:32 Resp 18 10/11/21 04:32 BP 165/83 10/11/21 04:32 Pulse Ox 98 10/11/21 04:32 FiO2 21 10/10/21 15:06 Intake & Output 10/10/21 10/11/21 10/11/21 18:59 06:59 18:59 Intake Total 222 440 Balance 222 440 Intake: Oral 222 440 Other: Voiding Method Bedside Commode Bedside Commode Bedside Commode # Voids 3 3 # Bowel Movements 1 1 - Exam In general patient is alert and oriented x 3 in no distress HEENT head normocephalic and atraumatic Neck is supple no JVD no goiter no lymphadenopathy no carotid bruit Chest examination is clear to auscultation no crackles no wheezing Cardiac exam reveals regular heart sounds S1 and S2 no gallops no murmurs Abdomen is soft nontender no organomegaly with normal bowel sounds Extremity exam reveals no edema no cyanosis or clubbing Neurological examination reveals no gross focal deficits - Labs CBC & Chem 7: 10/10/21 06:21 10/11/21 06:30 Labs: Abnormal Lab Results - Last 24 Hours (Table) 10/10/21 10/11/21 Range/Units 06:21 06:30 WBC 19.76 H (4.50-10.00) X 10*3/uL RBC 3.47 L (4.10-5.20) X 10*6/uL Hgb 9.5 L (12.0-15.0) g/dL Hct 31.3 L (37.2-46.3) % MCHC 30.4 L (32.0-37.0) g/dL RDW 18.6 H (11.5-14.5) % Immature Gran # 0.13 H (0.00-0.04) X 10*3/uL Neutrophils # 16.36 H (1.80-7.70) X 10*3/uL Monocytes # 1.40 H (0.20-1.00) X 10*3/uL Eosinophils # 0.65 H (0.04-0.35) X 10*3/uL Est GFR (CKD-EPI)AfAm 53.2 L (60.0-200.0) Est GFR (CKD-EPI)NonAf 45.9 L (60.0-200.0) Glucose 132 H (70-110) mg/dL Calcium 8.1 L (8.7-10.3) mg/dL Phosphorus 2.1 L (2.4-5.1) mg/dL Microbiology - Last 24 Hours (Table) 10/10/21 15:00 Gram Stain - Preliminary Sputum Sputum Culture - Preliminary 10/09/21 13:00 Acid Fast Bacilli Smear - Final Bronchial Brushings - Left Acid Fast Bacilli Culture - Preliminary 10/09/21 16:49 Blood Culture - Preliminary Blood No Growth after 24 hours 10/09/21 13:00 Gram Stain - Preliminary Bronchial Brushings - Left Bronchial Washings Culture - Preliminary Assessment and Plan Plan: Pneumonia History of gastrectomy. Previous history of multiple episodes of aspiration pneumonia failure to thrive with severe weight loss dependent on TPN History of hypothyroidism History of chronic back pain History of chronic kidney disease History of stroke in the past History of depression anxiety disorder Pulmonary and infectious disease services have been consulted Home meds reordered Status post bronchoscopy on 10/09/2021 Patient remains on IV Zosyn Dietary consult placed for TPN
--- NOTE | 2021-10-11 12:27 | P.PN ---
Subjective Progress Note Date: 10/11/21 This is a very pleasant 76-year-old female patient who is well-known to our service from multiple hospitalizations for recurrent aspiration pneumonia. Patient had a history of previous gastrectomy, chronic dysphagia, recurrent aspiration pneumonia, chronic malnutrition and failure to thrive, patient is m aintained on TPN in addition to a soft diet by mouth. Patient also has history of chronic kidney disease stage III, hypothyroidism, migraine headaches, chronic pain syndrome, history of CVA, and history of PICC line infection and sepsis. Patient was recently hospitalized for recurrence of aspiration related pneumonia, falls at home following methadone dose increase, and acute on chronic kidney injury. Patient had persistent bilateral midlung opacities, patient had a PICC line inserted and prior hospitalizations for TPN infusion, and completed a course of IV Zosyn. Patient was referred to general surgery for possibility of jejunostomy tube insertion, however patient had previous gastrectomy at the [facility], and she was advised to follow-up with the [facility] on an outpatient basis. The patient was again discharged from here on 09/22/2021. She had been seen and evaluated by Dr. Sanchez in the office and had her scheduled for navigational bronchoscopy and biopsies as an outpatient today. She returned to the ER again yesterday as her eighth hospitalization this year. She is complaining of shortness of breath cough congestion, chest and back pain. Her chest x-ray continues to show irregular consolidation bilaterally. White count 18.4. Hemoglobin 11.0. Platelets 431. Sodium 137. Potassium 3.8. BUN 25. Creatinine 1.17. AST 22. ALT 29. Glucose 98. He was initiated and DuoNeb inhalations, Symbicort and Zosyn. We did keep her on the Bronch schedule and she had biopsies today as well as a BAL of the left lower lobe. Cultures and pathology pending. Progress note dated 10/10/2021. 76-year-old female well-known to us. The patient underwent navigational procedure yesterday, but biopsies of lesions in the right lung and left lung. Most of the biopsies and sampling stent placed in the left lung. The patient had brushes and washings as well. The patient is resting comfortably in her room. She is seen in room 517. She is on room air. She is receiving her TPN and some IV fluids. She appears to be relatively stable. The patient has had 8 admissions to the hospital, and 2020, and at additional admissions to the hospital, thus far this year. We had a long conversation about the importance of not coming to the hospital so frequently, as the patient never really appears to be sick. In addition, looking back at her microbiologic samples over the many admissions, she had mostly abnormal urines, suggesting urinary tract infe ctions, and had one positive blood culture for Pseudomonas. She never had any positive sampling from the lung in the way of a sputum or bronchoscopy. White count 19.76, hemoglobin 9.5, hematocrit 31.3, and platelet count 300,000. Electrolytes look relatively normal. Creatinines a elevated at 1.09. Glucose 129, calcium 7.9, phosphorous 2, magnesium 1.5. Results from the bronchoscopy and biopsy yesterday, are currently pending. The patient is seen today 10/11/2021 in follow-up on the regular medical floor. She is currently resting comfortably in bed. No worsening shortness of breath, cough or congestion. He did undergo bronchoscopy with biopsies on 10/07/2021. Pathology was positive for atypical cells but nondiagnostic. Cultures are pending. Sodium 137. Potassium 4.3. BUN 16. Creatinine 1.2. She is continued on TPN for nutritional support. She remains on Symbicort and alb uterol. Antibiotics in the form of Zosyn. Objective - Vital Signs Vital signs: Vital Signs Temp 98.4 F 10/11/21 04:32 Pulse 98 10/11/21 04:32 Resp 18 10/11/21 04:32 BP 165/83 10/11/21 04:32 Pulse Ox 98 10/11/21 04:32 FiO2 21 10/10/21 15:06 Intake & Output 10/10/21 10/11/21 10/11/21 18:59 06:59 18:59 Intake Total 222 440 Balance 222 440 Intake: Oral 222 440 Other: Voiding Method Bedside Commode Bedside Commode Bedside Commode # Voids 3 3 # Bowel Movements 1 1 - Exam Pleasant 76-year-old female patient. No acute distress, oriented 3. Currently on room air. Very frail appearing. No conversational dyspnea or use of accessory muscles. HEENT examination is grossly unremarkable. Neck supple. Full range of motion. No adenopathy thyromegaly or neck vein distention. Cardiovascular examination reveals regular rhythm rate. S1-S2 normal. No S3 or S4. No discernible murmur noted. Lungs reveal scattered mild rhonchi. No wheezes. No crackles. Breath sounds equal bilaterally. Abdomen soft bowel sounds are heard. No masses or tenderness. Extremities are intact. No cyanosis clubbing or edema. Skin is without rash or lesion. Neurologic examination is brief but nonfocal. - Labs CBC & Chem 7: 10/10/21 06:21 10/11/21 06:30 Labs: Abnormal Lab Results - Last 24 Hours (Table) 10/11/21 Range/Units 06:30 Est GFR (CKD-EPI)AfAm 53.2 L (60.0-200.0) Est GFR (CKD-EPI)NonAf 45.9 L (60.0-200.0) Glucose 132 H (70-110) mg/dL Calcium 8.1 L (8.7-10.3) mg/dL Phosphorus 2.1 L (2.4-5.1) mg/dL Microbiology - Last 24 Hours (Table) 10/10/21 15:00 Gram Stain - Preliminary Sputum Sputum Culture - Preliminary 10/09/21 13:00 Acid Fast Bacilli Smear - Final Bronchial Brushings - Left Acid Fast Bacilli Culture - Preliminary 10/09/21 16:49 Blood Culture - Preliminary Blood No Growth after 24 hours 10/09/21 13:00 Gram Stain - Preliminary Bronchial Brushings - Left Bronchial Washings Culture - Preliminary Assessment and Plan Assessment: 1 Bilateral rib pain, cough related to recurrent aspiration, patient is recovering from recent aspiration related pneumonia. She has a left upper extremity PICC line in place and was most recently on Zosyn. The patient has had 8 hospitalizations this year. Chest x-ray showed multifocal bilateral areas of consolidation. She did undergo navigational bronchoscopy with biopsies and BAL of the left lower lobe 10/09/2021. 2 Chronic pain syndrome, most recently on methadone for pain control 3 Chronic kidney disease stage III at baseline 4 Malnutrition and failure to thrive 5 Recurrent aspiration with multiple hospitalizations, patient is currently on TPN for nutritional support in addition to some oral feedings on soft diet 6 History of gastrectomy and the patient was to follow-up at the [facility] who did her original surgery. 7 Recent hospitalization for urinary tract infection, related to enterococcus faecalis 8 Chronic pain syndrome 9 Previous history of CVA 10 History of hypothyroidism 11 History of spinal stenosis and chronic back pain 12 History of chronic anemia of chronic disease 13 Anxiety/depression Plan: The patient was seen and evaluated Medications and labs reviewed She did undergo navigational bronchoscopy with biopsies and BAL Pathology positive for atypical cells but nondiagnostic for malignancy She may need a follow-up bronchoscopy in the future. Not this admission. Currently on Zosyn, bronchodilators We will continue to follow I have personally seen and examined the patient, performed the documentation and the assessment and plan as written. Number of minutes spent on the visit: 10.
[2021-10-11] MEDS ORDERED: SODIUM PHOSPHATE 10 MMOL in SODIUM CHLORIDE 0.9% 100 ML IVPB ONE (13:00)
[2021-10-11] MEDS: MIRTAZAPINE 45 MG TABLET PO SCH (20:38)
[2021-10-12] MEDS: PIPERACILLIN-TAZOBACTAM 3.375 GM in SODIUM CHLORIDE 0.9% 100 ML IVPB SCH ×4 (00:49→23:15)
[2021-10-12] MEDS: 1: AMINO ACID 5%-D20W+LYTES*E* 1,000 ML 2: MVI, ADULT NO.4 WITH VIT K 10 ML, TRACE (CON IV SCH ×6 (01:23→20:45)
[2021-10-12] MEDS: BUTALB/APAP/CAFF 50-325-40MG TAB PO PRN ×4 (02:27→21:45)
[2021-10-12] MEDS: HYDROmorphone 1 MG/ML 1 ML SYRINGE IVP PRN ×6 (03:14→23:14)
[2021-10-12] MEDS: LEVOTHYROXINE 100 MCG TAB PO SCH (04:57)
[2021-10-12] MEDS: SODIUM CHLORIDE 0.9% 1,000 ML IV SCH ×2 (06:10→23:21)
[2021-10-12] MEDS: SYMBICORT 160-4.5 MCG INHALER INHALATION SCH ×2 (07:40→18:52)
[2021-10-12] MEDS: busPIRone HCl 10 MG TAB PO SCH ×2 (08:31→20:57)
[2021-10-12] MEDS: METHADONE 10 MG TAB PO SCH ×2 (08:31→20:56)
[2021-10-12] MEDS: predniSONE 20 MG TAB PO SCH (08:31)
[2021-10-12] MEDS: hydrOXYzine pamoate 25 MG CAP PO SCH ×3 (08:32→21:46)
[2021-10-12] MEDS: buPROPion XL 300 MG TAB.ER.24H PO SCH (08:32)
[2021-10-12] MEDS: PANTOPRAZOLE 40 MG TABLET PO SCH (08:32)
[2021-10-12] MEDS: buPROPion XL 150 MG TAB.ER.24H PO SCH (08:32)
[2021-10-12] MEDS: ASPIRIN 81 MG PO SCH (08:32)
[2021-10-12] MEDS: SODIUM BICARBONATE TAB 650 MG TAB PO SCH (08:32)
[2021-10-12] MEDS: FERROUS SULFATE 325 MG TAB PO SCH (08:32)
--- NOTE | 2021-10-12 12:22 | P.PN ---
Subjective Progress Note Date: 10/12/21 Louise Sutton, is a 76-year-old female, who presented to [facility] emergency room with a chief complaint of worsening shortness of breath. She was evaluated in the emergency room vital examination on presentation revealed a temperature of 98 pulse 97 respiration 16 blood pressure 153/83 pulse ox 99% on room air Laboratory data revealed a white blood count of 18.4 hemoglobin 11.2 platelet count 431 BUN 25 creatinine 1.17 alkaline phosphatase 233 troponin less than 0.012 Testing in the emergency room revealed chest x-ray done in the emergency room revealed by basilar infiltrates and new cavitation in the right upper lobe. Patient was admitted to medical floor for further evaluation and treatment Past medical history is significant for history of recurrent pneumonia likely related to aspiration, history of asthma, history of COPD, history of CVA, history of pancreatitis, history of gastrectomy, patient is dependent on TPN for her nutritional needs, history of hypothyroidism, history of chronic back pain maintained on narcotics for pain management, history of migraine headaches On 10/10/2021 patient was seen and examined on the medical floor she is alert and oriented 3 in no apparent distress there is no fever or chills no headache or dizziness no chest pain no shortness of breath she has occasional cough no nausea or vomiting no abdominal pain no diarrhea and no urinary symptoms her vital exam reveals a temperature of 98.8 pulse 98 respirations 16 blood pressure 158/80 pulse ox 96% on room air white blood count is 19.76 hemoglobin 9.5 platelet count 300 sodium 137 potassium 3.6 chloride 105 CO2 22 BUN 16 creatinine 1.09 On 10/11/2021 patient is alert and oriented 3. Patient remains on IV Zosyn cultures from bronchoscopy pending. Vital signs temp 98.4, pulse rate 98 as tolerated 18, blood pressure 165/83. patient oxygen saturation of 98% on room air On 10/12/2021 patient was seen and examined on the medical floor she is alert and oriented 3 in no apparent distress she is complaining of cough and shortness of breath with activity otherwise she denies any complaints there is no fever or chills no headache or dizziness no chest pain no nausea or vomiting no abdominal pain no diarrhea and no urinary symptoms. At this time we are awaiting bronchoscopy culture results, continue with current medications, prednisone was added yesterday, patient has less wheezing and less shortness of breath today. Objective - Vital Signs Vital signs: Vital Signs Temp 98.4 F 10/12/21 05:00 Pulse 102 H 10/12/21 05:00 Resp 16 10/12/21 05:00 BP 157/70 10/12/21 05:00 Pulse Ox 94 L 10/12/21 05:00 FiO2 21 10/10/21 15:06 Intake & Output 10/11/21 10/12/21 10/12/21 18:59 06:59 18:59 Intake Total 100 1070 Balance 100 1070 Weight 38.555 kg Intake: Intake, IV Titration 100 Amount Sodium Phosphate 10 mmol 100 In Sodium Chloride 0.9% 100 ml @ 50 mls/hr IVPB ONCE ONE Rx#:[id number] Oral 1070 Other: Voiding Method Bedside Commode Bedside Commode Bedside Commode # Voids 4 1 # Bowel Movements 1 - Exam In general patient is alert and oriented x 3 in no distress HEENT head normocephalic and atraumatic Neck is supple no JVD no goiter no lymphadenopathy no carotid bruit Chest examination is clear to auscultation no crackles no wheezing Cardiac exam reveals regular heart sounds S1 and S2 no gallops no murmurs Abdomen is soft nontender no organomegaly with normal bowel sounds Extremity exam reveals no edema no cyanosis or clubbing Neurological examination reveals no gross focal deficits - Labs CBC & Chem 7: 10/10/21 06:21 10/11/21 06:30 Labs: Microbiology - Last 24 Hours (Table) 10/10/21 15:00 Gram Stain - Final Sputum Sputum Culture - Final 10/09/21 16:49 Blood Culture - Preliminary Blood No Growth after 48 hours 10/09/21 13:00 Gram Stain - Final Bronchial Brushings - Left Bronchial Washings Culture - Final Assessment and Plan Plan: Pneumonia History of gastrectomy. Previous history of multiple episodes of aspiration pneumonia failure to thrive with severe weight loss dependent on TPN History of hypothyroidism History of chronic back pain History of chronic kidney disease History of stroke in the past History of depression anxiety disorder Pulmonary and infectious disease services have been consulted Home meds reordered Status post bronchoscopy on 10/09/2021 Patient remains on IV Zosyn Dietary consult placed for TPN
[2021-10-12 12:37] LABS: Basophils # (A) 0.04 X 10*3/uL (0.00-0.10); Basophils % (A) 0.3 %; Eosinophils # (A) 0.58 X 10*3/uL (0.04-0.35); Eosinophils % (A) 4.6 %; HGB 8.7 g/dL (12.0-15.0); Immature Grans, Automated 0.6 %; Lymphocytes # (A) 1.32 X 10*3/uL (0.90-5.00); Lymphocytes % (A) 10.5 %; MCH 27.2 pg (27.0-32.0); MCV 90.6 fL (80.0-97.0); Mean Platelet Volume 9.9 fL (9.5-12.2); Monocytes # (A) 1.19 X 10*3/uL (0.20-1.00); Monocytes % (A) 9.4 %; NRBC Per 100 WBC 0 /100 WBCS (0.0-0.0); Neutrophils % (A) 74.6 %; Platelet Count 285 X 10*3/uL (140-440); RDW 18.7 % (11.5-14.5); WBC 12.61 X 10*3/uL (4.50-10.00)
--- NOTE | 2021-10-12 12:49 | P.PN ---
Subjective Progress Note Date: 10/12/21 This is a very pleasant 76-year-old female patient who is well-known to our service from multiple hospitalizations for recurrent aspiration pneumonia. Patient had a history of previous gastrectomy, chronic dysphagia, recurrent aspiration pneumonia, chronic malnutrition and failure to thrive, patient is m aintained on TPN in addition to a soft diet by mouth. Patient also has history of chronic kidney disease stage III, hypothyroidism, migraine headaches, chronic pain syndrome, history of CVA, and history of PICC line infection and sepsis. Patient was recently hospitalized for recurrence of aspiration related pneumonia, falls at home following methadone dose increase, and acute on chronic kidney injury. Patient had persistent bilateral midlung opacities, patient had a PICC line inserted and prior hospitalizations for TPN infusion, and completed a course of IV Zosyn. Patient was referred to general surgery for possibility of jejunostomy tube insertion, however patient had previous gastrectomy at the [facility], and she was advised to follow-up with the [facility] on an outpatient basis. The patient was again discharged from here on 09/22/2021. She had been seen and evaluated by Dr. Sanchez in the office and had her scheduled for navigational bronchoscopy and biopsies as an outpatient today. She returned to the ER again yesterday as her eighth hospitalization this year. She is complaining of shortness of breath cough congestion, chest and back pain. Her chest x-ray continues to show irregular consolidation bilaterally. White count 18.4. Hemoglobin 11.0. Platelets 431. Sodium 137. Potassium 3.8. BUN 25. Creatinine 1.17. AST 22. ALT 29. Glucose 98. He was initiated and DuoNeb inhalations, Symbicort and Zosyn. We did keep her on the Bronch schedule and she had biopsies today as well as a BAL of the left lower lobe. Cultures and pathology pending. Progress note dated 10/10/2021. 76-year-old female well-known to us. The patient underwent navigational procedure yesterday, but biopsies of lesions in the right lung and left lung. Most of the biopsies and sampling stent placed in the left lung. The patient had brushes and washings as well. The patient is resting comfortably in her room. She is seen in room 517. She is on room air. She is receiving her TPN and some IV fluids. She appears to be relatively stable. The patient has had 8 admissions to the hospital, and 2020, and at additional admissions to the hospital, thus far this year. We had a long conversation about the importance of not coming to the hospital so frequently, as the patient never really appears to be sick. In addition, looking back at her microbiologic samples over the many admissions, she had mostly abnormal urines, suggesting urinary tract infe ctions, and had one positive blood culture for Pseudomonas. She never had any positive sampling from the lung in the way of a sputum or bronchoscopy. White count 19.76, hemoglobin 9.5, hematocrit 31.3, and platelet count 300,000. Electrolytes look relatively normal. Creatinines a elevated at 1.09. Glucose 129, calcium 7.9, phosphorous 2, magnesium 1.5. Results from the bronchoscopy and biopsy yesterday, are currently pending. The patient is seen today 10/11/2021 in follow-up on the regular medical floor. She is currently resting comfortably in bed. No worsening shortness of breath, cough or congestion. He did undergo bronchoscopy with biopsies on 10/07/2021. Pathology was positive for atypical cells but nondiagnostic. Cultures are pending. Sodium 137. Potassium 4.3. BUN 16. Creatinine 1.2. She is continued on TPN for nutritional support. She remains on Symbicort and alb uterol. Antibiotics in the form of Zosyn. The patient is seen today 10/12/2021 in follow-up on the regular medical floor. She is resting comfortably in bed. Awake and alert in no acute distress. Maintaining O2 saturations in the 90s on room air. She's afebrile. Hemodynamically stable. He is continued on TPN for nutritional support at 50 MLS per hour. Sputum culture revealed no growth. Blood cultures revealed no growth. Bronchial washings revealed no growth. White count 12.6. Hemoglobin 8.7. He is continued on Zosyn per ID services. Continue on Symbicort and albuterol. Objective - Vital Signs Vital signs: Vital Signs Temp 98.0 F 10/12/21 12:18 Pulse 87 10/12/21 12:18 Resp 18 10/12/21 12:18 BP 117/69 10/12/21 12:18 Pulse Ox 97 10/12/21 12:18 FiO2 21 10/10/21 15:06 Intake & Output 10/11/21 10/12/21 10/12/21 18:59 06:59 18:59 Intake Total 100 1070 Balance 100 1070 Weight 38.555 kg Intake: Intake, IV Titration 100 Amount Sodium Phosphate 10 mmol 100 In Sodium Chloride 0.9% 100 ml @ 50 mls/hr IVPB ONCE ONE Rx#:[id number] Oral 1070 Other: Voiding Method Bedside Commode Bedside Commode Bedside Commode # Voids 4 1 # Bowel Movements 1 - Exam Pleasant 76-year-old female patient. No acute distress, oriented 3. Currently on room air. Very frail appearing. No conversational dyspnea or use of accessory muscles. HEENT examination is grossly unremarkable. Neck supple. Full range of motion. No adenopathy thyromegaly or neck vein d istention. Cardiovascular examination reveals regular rhythm rate. S1-S2 normal. No S3 or S4. No discernible murmur noted. Lungs reveal scattered mild rhonchi. No wheezes. No crackles. Breath sounds equal bilaterally. Abdomen soft bowel sounds are heard. No masses or tenderness. Extremities are intact. No cyanosis clubbing or edema. Skin is without rash or lesion. Neurologic examination is brief but nonfocal. - Labs CBC & Chem 7: 10/12/21 05:57 10/11/21 06:30 Labs: Abnormal Lab Results - Last 24 Hours (Table) 10/12/21 Range/Units 05:57 WBC 12.61 H (4.50-10.00) X 10*3/uL RBC 3.20 L (4.10-5.20) X 10*6/uL Hgb 8.7 L (12.0-15.0) g/dL Hct 29.0 L (37.2-46.3) % MCHC 30.0 L (32.0-37.0) g/dL RDW 18.7 H (11.5-14.5) % Immature Gran # 0.08 H (0.00-0.04) X 10*3/uL Neutrophils # 9.40 H (1.80-7.70) X 10*3/uL Monocytes # 1.19 H (0.20-1.00) X 10*3/uL Eosinophils # 0.58 H (0.04-0.35) X 10*3/uL Microbiology - Last 24 Hours (Table) 06/23/22 15:00 Gram Stain - Final Sputum Sputum Culture - Final 10/09/21 16:49 Blood Culture - Preliminary Blood No Growth after 48 hours 10/09/21 13:00 Gram Stain - Final Bronchial Brushings - Left Bronchial Washings Culture - Final Assessment and Plan Assessment: 1 Bilateral rib pain, cough related to recurrent aspiration, patient is recovering from recent aspiration related pneumonia. She has a left upper extremity PICC line in place and was most recently on Zosyn. The patient has had 8 hospitalizations this year. Chest x-ray showed multifocal bilateral areas of consolidation. She did undergo navigational bronchoscopy with biopsies and BAL of the left lower lobe 10/09/2021. Brachial wash cultures reveal no growth.. 2 Chronic pain syndrome, most recently on methadone for pain control 3 Chronic kidney disease stage III at baseline 4 Malnutrition and failure to thrive 5 Recurrent aspiration with multiple hospitalizations, patient is currently on TPN for nutritional support in addition to some oral feedings on soft diet 6 History of gastrectomy and the patient was to follow-up at the [facility] who did her original surgery. 7 Recent hospitalization for urinary tract infection, related to enterococcus faecalis 8 Chronic pain syndrome 9 Previous history of CVA 10 History of hypothyroidism 11 History of spinal stenosis and chronic back pain 12 History of chronic anemia of chronic disease 13 Anxiety/depression Plan: The patient was seen and evaluated Medications and labs reviewed Bronchial wash cultures revealed no growth Pathology positive for atypical cells but nondiagnostic for malignancy She may need a follow-up bronchoscopy in the future. Not this admission. She is cleared for discharge from the pulmonary stem We will see as needed I have personally seen and examined the patient, performed the documentation and the assessment and plan as written. Number of minutes spent on the visit: 10.
[2021-10-12 15:23] LABS: Magnesium 1.8 mg/dL (1.5-2.4); Phosphorus 2.9 mg/dL (2.4-5.1)
[2021-10-12 16:18] LABS: ALT 19 U/L (8-44); AST 19 U/L (13-35); African American GFR (CKD) 51.6 (60.0-200.0); Albumin 3.1 g/dL (3.8-4.9); Albumin/Globulin Ratio 1.41 (1.60-3.17); Alkaline Phosphatase 173 U/L (41-126); BUN/Creat Ratio 22.33 Ratio (12.00-20.00); Blood Urea Nitrogen 26.8 mg/dL (9.0-27.0); Carbon Dioxide 20.5 mmol/L (20.0-27.5); Chloride 105 mmol/L (96-109); Globulin 2.2 g/dL (1.6-3.3); Glucose 126 mg/dL (70-110); Non-African American GFR(CKD) 44.5 (60.0-200.0); Potassium 4.9 mmol/L (3.5-5.5); Sodium 139 mmol/L (135-145); Total Bilirubin <0.15 mg/dL (0.30-1.20); Total Protein 5.3 g/dL (6.2-8.2)
[2021-10-12] MEDS: MIRTAZAPINE 45 MG TABLET PO SCH (21:47)
--- NOTE | 2021-10-13 00:22 | P.PN ---
Subjective Progress Note Date: 10/10/21 Principal diagnosis: Recurrent pneumonias Patient is a 76-year-old female with past medical history significant for gastrectomy history of recurrent Pneumonia, with multiple admissions the hospital for pneumonia, status post bronchoscopy and biopsies which are currently pending. On today's evaluation that is 10/10/2021, the patient denies having any fever or chills she still complaining of shortness of breath and cough not bringing up any sputum no abdominal pain or diarrhea Objective - Vital Signs Vital signs: Vital Signs Temp 99.8 F H 10/10/21 12:54 Pulse 98 10/10/21 12:54 Resp 18 10/10/21 12:54 BP 173/73 10/10/21 12:54 Pulse Ox 97 10/10/21 15:06 FiO2 21 10/10/21 15:06 Intake & Output 10/09/21 10/10/21 10/10/21 18:59 06:59 18:59 Intake Total 450 2640 222 Balance 450 2640 222 Weight 38.555 kg Intake: IV 450 Intake, IV Titration 2240 Amount Fat Emulsion 20% 500 ml 480 In Empty Bag 1 bag @ 42 mls/hr IV We CHAD Rx#: [id number] Mvi, Adult No.4 with Vit 360 K 10 ml Trace (Conc-1Ml/ Dose) 1 ml In Amino Acid 5%-D20w+Lytes*E* 1,000 ml @ 30 mls/hr IV .Q24H CHAD Rx#:[id number] Piperacillin-Tazobactam 3 200 .375 gm In Sodium Chloride 0.9% 100 ml @ 25 mls/hr IVPB Q8HR [facility]AD Rx# :[id number] Sodium Chloride 0.9% 1, 1200 000 ml @ 100 mls/hr IV . Q10H CHAD Rx#:[id number] Oral 400 222 Other: Voiding Method Bedside Commode Bedside Commode # Voids 2 5 - Exam GENERAL DESCRIPTION: An elderly female lying in bed in no distress RESPIRATORY SYSTEM: Unlabored breathing , decreased breath sounds at bases HEART: S1 S2 regular rate and rhythm , ABDOMEN: Soft , no tenderness EXTREMITIES: No edema feet - Labs CBC & Chem 7: 10/12/21 05:57 10/12/21 05:57 Labs: Abnormal Lab Results - Last 24 Hours (Table) 10/10/21 10/10/21 Range/Units 06:21 06:21 WBC 19.76 H (4.50-10.00) X 10*3/uL RBC 3.47 L (4.10-5.20) X 10*6/uL Hgb 9.5 L (12.0-15.0) g/dL Hct 31.3 L (37.2-46.3) % MCHC 30.4 L (32.0-37.0) g/dL RDW 18.6 H (11.5-14.5) % Immature Gran # 0.13 H (0.00-0.04) X 10*3/uL Neutrophils # 16.36 H (1.80-7.70) X 10*3/uL Monocytes # 1.40 H (0.20-1.00) X 10*3/uL Eosinophils # 0.65 H (0.04-0.35) X 10*3/uL Creatinine 1.09 H (0.52-1.04) mg/dL Glucose 129 H (74-99) mg/dL Calcium 7.9 L (8.4-10.2) mg/dL Phosphorus 2.0 L (2.5-4.5) mg/dL Magnesium 1.5 L (1.6-2.3) mg/dL Alkaline Phosphatase 194 H (38-126) U/L C-Reactive Protein 11.6 H (<1.0) mg/dL Total Protein 6.0 L (6.3-8.2) g/dL Albumin 3.4 L (3.5-5.0) g/dL Microbiology - Last 24 Hours (Table) 10/09/21 13:00 Gram Stain - Preliminary Bronchial Brushings - Left Bronchial Washings Culture - Preliminary 10/09/21 13:00 Fungal Culture - Preliminary Bronchial Brushings - Left 10/09/21 13:00 Acid Fast Bacilli Culture - Preliminary Bronchial Brushings - Left Assessment and Plan (1) Aspiration pneumonia Current Visit: No Status: Acute Code(s): J69.0 - PNEUMONITIS DUE TO INHALATION OF FOOD AND VOMIT SNOMED Code(s): 088026545 Plan: 1patient with a history of recurrent pneumonias with multiple admission to hospital presenting back with shortness of breath and cough status post bronchoscopy and biopsies which are currently pending. 2patient to continue with the Zosyn while waiting for the cultures to finalize Time with Patient: Less than 30
--- NOTE | 2021-10-13 00:23 | P.PN ---
Subjective Progress Note Date: 10/11/21 Principal diagnosis: Recurrent pneumonias Patient is a 76-year-old female with past medical history significant for gastrectomy history of recurrent Pneumonia, with multiple admissions the hospital for pneumonia, status post bronchoscopy and biopsies which are currently pending. On today's evaluation that is 10/11/2021, the patient remains to be afebrile, the patient is complaining of shortness of breath and cough not bringing up any sputum, the patient denies abdominal pain or diarrhea Objective - Vital Signs Vital signs: Vital Signs Temp 98.4 F 10/11/21 04:32 Pulse 98 10/11/21 04:32 Resp 18 10/11/21 04:32 BP 165/83 10/11/21 04:32 Pulse Ox 98 10/11/21 04:32 FiO2 21 10/10/21 15:06 Intake & Output 10/10/21 10/11/21 10/11/21 18:59 06:59 18:59 Intake Total 222 440 Balance 222 440 Intake: Oral 222 440 Other: Voiding Method Bedside Commode Bedside Commode Bedside Commode # Voids 3 3 # Bowel Movements 1 1 - Exam GENERAL DESCRIPTION: An elderly female lying in bed in no distress RESPIRATORY SYSTEM: Unlabored breathing , decreased breath sounds at bases HEART: S1 S2 regular rate and rhythm , ABDOMEN: Soft , no tenderness EXTREMITIES: No edema feet - Labs CBC & Chem 7: 10/12/21 05:57 10/12/21 05:57 Labs: Abnormal Lab Results - Last 24 Hours (Table) 10/11/21 Range/Units 06:30 Est GFR (CKD-EPI)AfAm 53.2 L (60.0-200.0) Est GFR (CKD-EPI)NonAf 45.9 L (60.0-200.0) Glucose 132 H (70-110) mg/dL Calcium 8.1 L (8.7-10.3) mg/dL Phosphorus 2.1 L (2.4-5.1) mg/dL Microbiology - Last 24 Hours (Table) 10/10/21 15:00 Gram Stain - Preliminary Sputum Sputum Culture - Preliminary 10/09/21 13:00 Acid Fast Bacilli Smear - Final Bronchial Brushings - Left Acid Fast Bacilli Culture - Preliminary 10/09/21 16:49 Blood Culture - Preliminary Blood No Growth after 24 hours 10/09/21 13:00 Gram Stain - Preliminary Bronchial Brushings - Left Bronchial Washings Culture - Preliminary Assessment and Plan (1) Aspiration pneumonia Current Visit: No Status: Acute Code(s): J69.0 - PNEUMONITIS DUE TO INHALATION OF FOOD AND VOMIT SNOMED Code(s): 520572910 Plan: 1patient with a history of recurrent pneumonias with multiple admission to hospital presenting back with shortness of breath and cough status post bronchoscopy and biopsies which are currently pending. 2patient is currently being treated with the Zosyn while waiting for the cultures to finalize and monitor clinical course closely Time with Patient: Less than 30
--- NOTE | 2021-10-13 00:25 | P.PN ---
Subjective Progress Note Date: 10/12/21 Principal diagnosis: Recurrent pneumonias Patient is a 76-year-old female with past medical history significant for gastrectomy history of recurrent Pneumonia, with multiple admissions the hospital for pneumonia, status post bronchoscopy and biopsies. On today's evaluation that is 10/12/2021, the patient continues to be afebrile, the patient is breathing comfortably on room air, patient denies chest pain, the patient did have cough but not bringing up any sputum, the patient denies abdominal pain or diarrhea Objective - Vital Signs Vital signs: Vital Signs Temp 98.0 F 10/12/21 12:18 Pulse 87 10/12/21 12:18 Resp 18 10/12/21 12:18 BP 117/69 10/12/21 12:18 Pulse Ox 97 10/12/21 12:18 FiO2 21 10/10/21 15:06 Intake & Output 10/12/21 10/12/21 10/13/21 06:59 18:59 06:59 Intake Total 2069 Balance 2069 Intake: Intake, IV Titration 1000 Amount Amino Acid 5%-D20w+Lytes* 1000 E* 1,000 ml @ 50 mls/hr IV .BY DURATION CHAD Rx#: [id number] Oral 1070 Other: Voiding Method Bedside Commode Bedside Commode # Voids 4 2 # Bowel Movements 1 - Exam GENERAL DESCRIPTION: An elderly female lying in bed in no distress RESPIRATORY SYSTEM: Unlabored breathing , decreased breath sounds at bases HEART: S1 S2 regular rate and rhythm , ABDOMEN: Soft , no tenderness EXTREMITIES: No edema feet - Labs CBC & Chem 7: 10/12/21 05:57 10/12/21 05:57 Labs: Abnormal Lab Results - Last 24 Hours (Table) 10/12/21 10/12/21 Range/Units 05:57 05:57 WBC 12.61 H (4.50-10.00) X 10*3/uL RBC 3.20 L (4.10-5.20) X 10*6/uL Hgb 8.7 L (12.0-15.0) g/dL Hct 29.0 L (37.2-46.3) % MCHC 30.0 L (32.0-37.0) g/dL RDW 18.7 H (11.5-14.5) % Immature Gran # 0.08 H (0.00-0.04) X 10*3/uL Neutrophils # 9.40 H (1.80-7.70) X 10*3/uL Monocytes # 1.19 H (0.20-1.00) X 10*3/uL Eosinophils # 0.58 H (0.04-0.35) X 10*3/uL Est GFR (CKD-EPI)AfAm 51.6 L (60.0-200.0) Est GFR (CKD-EPI)NonAf 44.5 L (60.0-200.0) BUN/Creatinine Ratio 22.33 H (12.00-20.00) Ratio Glucose 126 H (70-110) mg/dL Calcium 8.0 L (8.7-10.3) mg/dL Total Bilirubin <0.15 L (0.30-1.20) mg/dL Alkaline Phosphatase 173 H (41-126) U/L Total Protein 5.3 L (6.2-8.2) g/dL Albumin 3.1 L (3.8-4.9) g/dL Albumin/Globulin Ratio 1.41 L (1.60-3.17) g/dL Microbiology - Last 24 Hours (Table) 10/09/21 16:49 Blood Culture - Preliminary Blood No Growth after 72 hours 10/10/21 15:00 Gram Stain - Final Sputum Sputum Culture - Final Assessment and Plan (1) Aspiration pneumonia Current Visit: No Status: Acute Code(s): J69.0 - PNEUMONITIS DUE TO INHALATION OF FOOD AND VOMIT SNOMED Code(s): 026959561 Plan: 1patient with a history of recurrent pneumonias with multiple admission to hospital presenting back with shortness of breath and cough status post bronchoscopy and biopsies, cultures has been negative, did have some atypical cells and pulmonary recommending repeat bronchoscopy later 2patient to continue with the Zosyn while inpatient however the culture being negative not planning for any IV antibiotic on discharge Time with Patient: Less than 30
[2021-10-13] MEDS: HYDROmorphone 1 MG/ML 1 ML SYRINGE IVP PRN ×5 (03:26→21:50)
[2021-10-13] MEDS: SODIUM CHLORIDE 0.9% 1,000 ML IV SCH ×2 (03:27→13:13)
[2021-10-13] MEDS: LEVOTHYROXINE 100 MCG TAB PO SCH (04:16)
[2021-10-13] MEDS: BUTALB/APAP/CAFF 50-325-40MG TAB PO PRN ×4 (05:24→23:59)
[2021-10-13 07:15] LABS: ALT 29 U/L (4-34); AST 51 U/L (14-36); African American GFR (CKD) 57 (>60 ml/min/1.73 sqM); Albumin 2.8 g/dL (3.5-5.0); Albumin/Globulin Ratio 1.1; Alkaline Phosphatase 148 U/L (38-126); Anion Gap 5 mmol/L; Blood Urea Nitrogen 36 mg/dL (7-17); C Reactive Protein 6.2 mg/dL (<1.0); Calcium 8.2 mg/dL (8.4-10.2); Carbon Dioxide 23 mmol/L (22-30); Chloride 108 mmol/L (98-107); Globulin 2.6 g/dL; Glucose 123 mg/dL (74-99); Magnesium 2.1 mg/dL (1.6-2.3); Non-African American GFR(CKD) 50 (>60 ml/min/1.73 sqM); Sodium 136 mmol/L (137-145); Total Bilirubin 0.2 mg/dL (0.2-1.3); Total Protein 5.4 g/dL (6.3-8.2)
[2021-10-13] MEDS: SYMBICORT 160-4.5 MCG INHALER INHALATION SCH ×2 (07:16→19:29)
[2021-10-13] MEDS: ASPIRIN 81 MG PO SCH (07:45)
[2021-10-13] MEDS: FERROUS SULFATE 325 MG TAB PO SCH (07:46)
[2021-10-13] MEDS: METHADONE 10 MG TAB PO SCH ×2 (07:46→20:44)
[2021-10-13] MEDS: busPIRone HCl 10 MG TAB PO SCH ×2 (07:46→20:44)
[2021-10-13] MEDS: predniSONE 20 MG TAB PO SCH (07:46)
[2021-10-13] MEDS: PANTOPRAZOLE 40 MG TABLET PO SCH (07:47)
[2021-10-13] MEDS: SODIUM BICARBONATE TAB 650 MG TAB PO SCH (07:47)
[2021-10-13] MEDS: hydrOXYzine pamoate 25 MG CAP PO SCH ×3 (07:47→21:39)
[2021-10-13] MEDS: PIPERACILLIN-TAZOBACTAM 3.375 GM in SODIUM CHLORIDE 0.9% 100 ML IVPB SCH ×3 (07:47→23:26)
[2021-10-13] MEDS: buPROPion XL 150 MG TAB.ER.24H PO SCH (07:49)
[2021-10-13] MEDS: buPROPion XL 300 MG TAB.ER.24H PO SCH (07:49)
--- NOTE | 2021-10-13 09:59 | P.PN ---
Subjective Progress Note Date: 10/13/21 Louise Sutton, is a 76-year-old female, who presented to [facility] emergency room with a chief complaint of worsening shortness of breath. She was evaluated in the emergency room vital examination on presentation revealed a temperature of 98 pulse 97 respiration 16 blood pressure 153/83 pulse ox 99% on room air Laboratory data revealed a white blood count of 18.4 hemoglobin 11.2 platelet count 431 BUN 25 creatinine 1.17 alkaline phosphatase 233 troponin less than 0.012 Testing in the emergency room revealed chest x-ray done in the emergency room revealed by basilar infiltrates and new cavitation in the right upper lobe. Patient was admitted to medical floor for further evaluation and treatment Past medical history is significant for history of recurrent pneumonia likely related to aspiration, history of asthma, history of COPD, history of CVA, history of pancreatitis, history of gastrectomy, patient is dependent on TPN for her nutritional needs, history of hypothyroidism, history of chronic back pain maintained on narcotics for pain management, history of migraine headaches On 10/10/2021 patient was seen and examined on the medical floor she is alert and oriented 3 in no apparent distress there is no fever or chills no headache or dizziness no chest pain no shortness of breath she has occasional cough no nausea or vomiting no abdominal pain no diarrhea and no urinary symptoms her vital exam reveals a temperature of 98.8 pulse 98 respirations 16 blood pressure 158/80 pulse ox 96% on room air white blood count is 19.76 hemoglobin 9.5 platelet count 300 sodium 137 potassium 3.6 chloride 105 CO2 22 BUN 16 creatinine 1.09 On 10/11/2021 patient is alert and oriented 3. Patient remains on IV Zosyn cultures from bronchoscopy pending. Vital signs temp 98.4, pulse rate 98 as tolerated 18, blood pressure 165/83. patient oxygen saturation of 98% on room air On 10/12/2021 patient was seen and examined on the medical floor she is alert and oriented 3 in no apparent distress she is complaining of cough and shortness of breath with activity otherwise she denies any complaints there is no fever or chills no headache or dizziness no chest pain no nausea or vomiting no abdominal pain no diarrhea and no urinary symptoms. At this time we are awaiting bronchoscopy culture results, continue with current medications, prednisone was added yesterday, patient has less wheezing and less shortness of breath today. On 10/13/2021 patient is alert and oriented 3. Per infectious disease patient will likely not require IV antibiotics upon discharge. No further workup of pulmonary patient will possibly need repeat bronchoscopy outpatient cultures currently negative. Patient complains of shortness breath remains on by mouth prednisone. Anticipate discharge in the next 24-48 hours Objective - Vital Signs Vital signs: Vital Signs Temp 98.4 F 10/13/21 04:17 Pulse 90 10/13/21 04:17 Resp 17 10/13/21 04:17 BP 130/64 10/13/21 04:17 Pulse Ox 97 10/13/21 04:17 FiO2 21 10/10/21 15:06 Intake & Output 10/12/21 10/13/21 10/13/21 18:59 06:59 18:59 Other: Voiding Method Bedside Commode Bedside Commode # Voids 2 3 # Bowel Movements 2 - Exam In general patient is alert and oriented x 3 in no distress HEENT head normocephalic and atraumatic Neck is supple no JVD no goiter no lymphadenopathy no carotid bruit Chest examination is clear to auscultation no crackles no wheezing Cardiac exam reveals regular heart sounds S1 and S2 no gallops no murmurs Abdomen is soft nontender no organomegaly with normal bowel sounds Extremity exam reveals no edema no cyanosis or clubbing Neurological examination reveals no gross focal deficits - Labs CBC & Chem 7: 10/12/21 05:57 10/13/21 06:12 Labs: Abnormal Lab Results - Last 24 Hours (Table) 10/12/21 10/12/21 10/13/21 Range/Units 05:57 05:57 06:12 WBC 12.61 H (4.50-10.00) X 10*3/uL RBC 3.20 L (4.10-5.20) X 10*6/uL Hgb 8.7 L (12.0-15.0) g/dL Hct 29.0 L (37.2-46.3) % MCHC 30.0 L (32.0-37.0) g/dL RDW 18.7 H (11.5-14.5) % Immature Gran # 0.08 H (0.00-0.04) X 10*3/uL Neutrophils # 9.40 H (1.80-7.70) X 10*3/uL Monocytes # 1.19 H (0.20-1.00) X 10*3/uL Eosinophils # 0.58 H (0.04-0.35) X 10*3/uL Sodium 136 L (137-145) mmol/L Chloride 108 H (98-107) mmol/L BUN 36 H (7-17) mg/dL Creatinine 1.10 H (0.52-1.04) mg/dL Est GFR (CKD-EPI)AfAm 51.6 L (60.0-200.0) Est GFR (CKD-EPI)NonAf 44.5 L (60.0-200.0) BUN/Creatinine Ratio 22.33 H (12.00-20.00) Ratio Glucose 126 H 123 H (70-110) mg/dL Calcium 8.0 L 8.2 L (8.7-10.3) mg/dL Total Bilirubin <0.15 L (0.30-1.20) mg/dL AST 51 H (14-36) U/L Alkaline Phosphatase 173 H 148 H (41-126) U/L C-Reactive Protein 6.2 H (<1.0) mg/dL Total Protein 5.3 L 5.4 L (6.2-8.2) g/dL Albumin 3.1 L 2.8 L (3.8-4.9) g/dL Albumin/Globulin Ratio 1.41 L (1.60-3.17) g/dL Microbiology - Last 24 Hours (Table) 10/09/21 16:49 Blood Culture - Preliminary Blood No Growth after 72 hours 10/10/21 15:00 Gram Stain - Final Sputum Sputum Culture - Final Assessment and Plan Plan: Pneumonia History of gastrectomy. Previous history of multiple episodes of aspiration pneumonia failure to thrive with severe weight loss dependent on TPN History of hypothyroidism History of chronic back pain History of chronic kidney disease History of stroke in the past History of depression anxiety disorder Pulmonary and infectious disease services have been consulted Home meds reordered Status post bronchoscopy on 10/09/2021 Patient remains on IV Zosyn Dietary consult placed for TPN Per infectious disease patient will likely not need IV antibiotics upon discharge
[2021-10-13 11:09] LABS: Basophils # (A) 0.03 X 10*3/uL (0.00-0.10); Basophils % (A) 0.3 %; Eosinophils % (A) 3.5 %; HCT 27.8 % (37.2-46.3); HGB 8.2 g/dL (12.0-15.0); Immature Grans, Automated 0.6 %; Lymphocytes # (A) 1.36 X 10*3/uL (0.90-5.00); Lymphocytes % (A) 11.8 %; MCH 27.1 pg (27.0-32.0); MCHC 29.5 g/dL (32.0-37.0); MCV 91.7 fL (80.0-97.0); Mean Platelet Volume 10.1 fL (9.5-12.2); Monocytes # (A) 1.04 X 10*3/uL (0.20-1.00); NRBC Per 100 WBC 0 /100 WBCS (0.0-0.0); Neutrophils # (A) 8.66 X 10*3/uL (1.80-7.70); Neutrophils % (A) 74.8 %; Platelet Count 335 X 10*3/uL (140-440); RBC 3.03 X 10*6/uL (4.10-5.20); RDW 18.6 % (11.5-14.5); WBC 11.56 X 10*3/uL (4.50-10.00)
[2021-10-13 13:07] VITALS: RESP 16
[2021-10-13] MEDS: 1: AMINO ACID 5%-D20W+LYTES*E* 1,000 ML 2: MVI, ADULT NO.4 WITH VIT K 10 ML, TRACE (CON IV SCH ×6 (16:12→16:13)
[2021-10-13] MEDS: MIRTAZAPINE 45 MG TABLET PO SCH (20:44)
[2021-10-14] MEDS: HYDROmorphone 1 MG/ML 1 ML SYRINGE IVP PRN ×4 (02:23→14:27)
[2021-10-14] MEDS: BUTALB/APAP/CAFF 50-325-40MG TAB PO PRN ×2 (05:50→10:51)
[2021-10-14] MEDS: SODIUM CHLORIDE 0.9% 1,000 ML IV SCH ×2 (05:55→10:53)
[2021-10-14] MEDS: LEVOTHYROXINE 100 MCG TAB PO SCH (06:01)
[2021-10-14 06:38] LABS: ALT 41 U/L (4-34); AST 46 U/L (14-36); African American GFR (CKD) 57 (>60 ml/min/1.73 sqM); Albumin 2.9 g/dL (3.5-5.0); Albumin/Globulin Ratio 1.2; Alkaline Phosphatase 135 U/L (38-126); Anion Gap 8 mmol/L; Blood Urea Nitrogen 34 mg/dL (7-17); Calcium 8.3 mg/dL (8.4-10.2); Carbon Dioxide 22 mmol/L (22-30); Chloride 108 mmol/L (98-107); Globulin 2.5 g/dL; Glucose 112 mg/dL (74-99); Magnesium 2.2 mg/dL (1.6-2.3); Non-African American GFR(CKD) 50 (>60 ml/min/1.73 sqM); Phosphorus 3.1 mg/dL (2.5-4.5); Potassium 5.1 mmol/L (3.5-5.1); Sodium 138 mmol/L (137-145); Total Bilirubin 0.2 mg/dL (0.2-1.3); Total Protein 5.4 g/dL (6.3-8.2)
[2021-10-14] MEDS: FERROUS SULFATE 325 MG TAB PO SCH (08:14)
[2021-10-14] MEDS: busPIRone HCl 10 MG TAB PO SCH (08:14)
[2021-10-14] MEDS: SODIUM BICARBONATE TAB 650 MG TAB PO SCH (08:14)
[2021-10-14] MEDS: predniSONE 20 MG TAB PO SCH (08:14)
[2021-10-14] MEDS: METHADONE 10 MG TAB PO SCH (08:14)
[2021-10-14] MEDS: hydrOXYzine pamoate 25 MG CAP PO SCH (08:14)
[2021-10-14] MEDS: ASPIRIN 81 MG PO SCH (08:14)
[2021-10-14] MEDS: PANTOPRAZOLE 40 MG TABLET PO SCH (08:15)
[2021-10-14] MEDS: buPROPion XL 300 MG TAB.ER.24H PO SCH (08:15)
[2021-10-14] MEDS: buPROPion XL 150 MG TAB.ER.24H PO SCH (08:15)
[2021-10-14] MEDS: PIPERACILLIN-TAZOBACTAM 3.375 GM in SODIUM CHLORIDE 0.9% 100 ML IVPB SCH (08:16)
[2021-10-14] MEDS: SYMBICORT 160-4.5 MCG INHALER INHALATION SCH (08:42)
[2021-10-14 09:17] LABS: Basophils # (A) 0.04 X 10*3/uL (0.00-0.10); Basophils % (A) 0.4 %; Eosinophils % (A) 3.1 %; HCT 28.7 % (37.2-46.3); HGB 8.4 g/dL (12.0-15.0); Immature Grans, Automated 0.8 %; Lymphocytes # (A) 1.56 X 10*3/uL (0.90-5.00); Lymphocytes % (A) 16.2 %; MCHC 29.3 g/dL (32.0-37.0); MCV 92.3 fL (80.0-97.0); Mean Platelet Volume 9.8 fL (9.5-12.2); Monocytes # (A) 0.87 X 10*3/uL (0.20-1.00); Monocytes % (A) 9.1 %; NRBC Per 100 WBC 0 /100 WBCS (0.0-0.0); Neutrophils # (A) 6.76 X 10*3/uL (1.80-7.70); Neutrophils % (A) 70.4 %; Platelet Count 366 X 10*3/uL (140-440); RBC 3.11 X 10*6/uL (4.10-5.20); RDW 18.4 % (11.5-14.5); WBC 9.61 X 10*3/uL (4.50-10.00)
[2021-10-14] MEDS: 1: AMINO ACID 5%-D20W+LYTES*E* 1,000 ML 2: MVI, ADULT NO.4 WITH VIT K 10 ML, TRACE (CON IV SCH ×3 (12:17)
[2021-10-14 12:24] VITALS: BMI 17.4
--- NOTE | 2021-10-14 12:34 | CDI ---
Documentation Clarification Form Date: 10/14/2021 12:25:27 PM From: Uma Alfaro CCS, CCDs Admit Date: 10/08/2021 10:56:00 PM Patient Name: Louise Sutton Visit Number: [id number] Discharge Date: ATTENTION: The Clinical Documentation Specialists (CDI) and [facility] Coding Staff appreciate your assistance in clarifying documentation. Please respond to the clarification below the line at the bottom and electronically sign. The CDI & [facility] Coding staff will review the response and follow-up if needed. Please note: Queries are made part of the Legal Health Record. If you have any questions, please contact the author of this message via ITS. Dr. Palmer Desir: Patient has a documented history of recurrent episodes of Aspiration Pneumonia. Per the History & Physical and subsequent Progress Notes, Pneumonia nos is documented. Additional clarification regarding the type of pneumonia is requested. History/Risk Factors per the 09/08 H/P: Recurrent Pneumonia likely related to Aspiration, Asthma, COPD, CVA, Pancreatitis, Gastrectomy dependent on TPN for nutritional needs, Hypothyroidism, Chronic back pain on Narcotics for pain management & Migraine Headaches. Clinical Indicators: Presented to the ED on 10/08 with SOB, Rib pain, Chest pain, Back pain, cough, congestion, pain with inspiration. Admit with Chronic renal failure, Anorexia, Community acquired pneumonia, Generalized weakness, Encounter for medication refill. 10/08 VS: T 98.0, P 97, R 16-20, BP 153/83, 174/95; PO 99 RA, BMI: 15.5 10/08 LAB: WBC 18.4, Hgb 11.0, Neutrophils 16.3; BUN 25, Creatinine 1.17, Alkaline Phosphatase 233, Procalcitonin 0.16 10/09 Procedure: Navigational Bronchoscopy with cytology. Treatment 10/08: O2 2Lnc, INH Duoneb 3 ml q4H/prn, IV azithromycin 250 mls @ 250 mls/hr x1, IV Na Chl 1,000 mls @ 100 mls/hr q10H, IV Dilaudid 1 mg x1 & q4H/prn, IV Rocephin 50 mls @ 100 mls/hr x1 Please clarify the type of pneumonia, if known: [ ] Aspiration Pneumonia, Due to food or vomitus, or other, please specify: [ ] Bacterial Pneumonia, specify causal organism (if known) [ ] Viral Pneumonia, specify casual organism (if known) [ ] Other, please specify [ ] Unable to determine (Template Last Revised: June 2020) 10/16 Query response documented in 10/14 DS Diagnosis (Dr Desir): Pneumonia possibly related to aspiration. (CDI: TJ) [place]
[2021-10-14 12:35] VITALS: BP 134/70; PULSE 82; TEMP 98.1
--- NOTE | 2021-10-14 15:49 | P.PN ---
Subjective Progress Note Date: 10/14/21 10/14/2021, no new complaints and the patient is stable and doing well. No cough sputum production chest answer wheezing. She's has some soreness across the chest. Bronchoscopy was done. There are transbronchial biopsies were limited and nondiagnostic. The cultures came back all negative.the patient is currently on room air oxygen. T Objective - Vital Signs Vital signs: Vital Signs Temp 98.1 F 10/14/21 11:45 Pulse 82 10/14/21 11:45 Resp 16 10/14/21 11:45 BP 134/70 10/14/21 11:45 Pulse Ox 96 10/14/21 11:45 FiO2 21 10/10/21 15:06 Intake & Output 10/13/21 10/14/21 10/14/21 18:59 06:59 18:59 Weight 43.2 kg Other: Voiding Method Bedside Commode Bedside Commode Bedside Commode # Voids 4 2 # Bowel Movements 2 - Exam In general patient is alert and oriented x 3 in no distress HEENT head normocephalic and atraumatic Neck is supple no JVD no goiter no lymphadenopathy no carotid bruit Chest examination is clear to auscultation no crackles no wheezing Cardiac exam reveals regular heart sounds S1 and S2 no gallops no murmurs Abdomen is soft nontender no organomegaly with normal bowel sounds Extremity exam reveals no edema no cyanosis or clubbing Neurological examination reveals no gross focal deficits - Labs CBC & Chem 7: 10/14/21 05:30 10/14/21 05:30 Labs: Abnormal Lab Results - Last 24 Hours (Table) 10/14/21 10/14/21 Range/Units 05:30 05:30 RBC 3.11 L (4.10-5.20) X 10*6/uL Hgb 8.4 L (12.0-15.0) g/dL Hct 28.7 L (37.2-46.3) % MCHC 29.3 L (32.0-37.0) g/dL RDW 18.4 H (11.5-14.5) % Immature Gran # 0.08 H (0.00-0.04) X 10*3/uL Chloride 108 H (98-107) mmol/L BUN 34 H (7-17) mg/dL Creatinine 1.10 H (0.52-1.04) mg/dL Glucose 112 H (74-99) mg/dL Calcium 8.3 L (8.4-10.2) mg/dL AST 46 H (14-36) U/L ALT 41 H (4-34) U/L Alkaline Phosphatase 135 H (38-126) U/L Total Protein 5.4 L (6.3-8.2) g/dL Albumin 2.9 L (3.5-5.0) g/dL Microbiology - Last 24 Hours (Table) 10/09/21 13:00 Fungal Culture - Preliminary Bronchial Brushings - Left Yeast species 10/09/21 16:49 Blood Culture - Preliminary Blood No Growth after 96 hours Assessment and Plan Plan: 1 Bilateral rib pain, cough related to recurrent aspiration, patient is recovering from recent aspiration related pneumonia. She has a left upper extremity PICC line in place and was most recently on Zosyn. The patient has had 8 hospitalizations this year. Chest x-ray showed multifocal bilateral areas of consolidation. She did undergo navigational bronchoscopy with biopsies and BAL of the left lower lobe 10/09/2021. Brachial wash cultures reveal no growth.. 2 Chronic pain syndrome, most recently on methadone for pain control 3 Chronic kidney disease stage III at baseline 4 Malnutrition and failure to thrive 5 Recurrent aspiration with multiple hospitalizations, patient is currently on TPN for nutritional support in addition to some oral feedings on soft diet 6 History of gastrectomy and the patient was to follow-up at the [facility] who did her original surgery. 7 Recent hospitalization for urinary tract infection, related to enterococcus faecalis 8 Chronic pain syndrome 9 Previous history of CVA 10 History of hypothyroidism 11 History of spinal stenosis and chronic back pain 12 History of chronic anemia of chronic disease 13 Anxiety/depression Plan Chest bronchial biopsies were nondiagnostic. The bronchioloalveolar lavage was negative for any microbial growth. Doubt ongoing pneumonia. Discharged from medicine. Pulmonary critical care service will sign off
--- NOTE | 2021-10-14 18:32 | P.DS ---
Providers Date of admission: 10/08/21 22:56 Expected date of discharge: 10/14/21 Attending physician: Palmer Desir Consults: 10/08/21 22:56 Consult Physician Routine Consulting Provider: Geovanny Womack Consult Reason/Comments: known Do you want consulting provider notified?: Yes 10/09/21 09:01 Consult Physician Routine Consulting Provider: Jas Gregorio Consult Reason/Comments: pneumonia Do you want consulting provider notified?: Yes Primary care physician: Ale Eli Hospital Course: Diagnosis on discharge: Pneumonia, possibly related to aspiration, patient underwent bronchoscopy during this admission, cultures were negative History of gastrectomy. Previous history of multiple episodes of aspiration pneumonia failure to thrive with severe weight loss dependent on TPN History of hypothyroidism History of chronic back pain History of chronic kidney disease History of stroke in the past History of depression anxiety disorder Hospital course: Louise Sutton, is a 76-year-old female, who presented to [facility] emergency room with a chief complaint of worsening shortness of breath. She was evaluated in the emergency room vital examination on presentation revealed a temperature of 98 pulse 97 respiration 16 blood pressure 153/83 pulse ox 99% on room air Laboratory data revealed a white blood count of 18.4 hemoglobin 11.2 platelet count 431 BUN 25 creatinine 1.17 alkaline phosphatase 233 troponin less than 0.012 Testing in the emergency room revealed chest x-ray done in the emergency room revealed by basilar infiltrates and new cavitation in the right upper lobe. Patient was admitted to medical floor for further evaluation and treatment Past medical history is significant for history of recurrent pneumonia likely related to aspiration, history of asthma, history of COPD, history of CVA, history of pancreatitis, history of gastrectomy, patient is dependent on TPN for her nutritional needs, history of hypothyroidism, history of chronic back pain maintained on narcotics for pain management, history of migraine headaches On 10/10/2021 patient was seen and examined on the medical floor she is alert and oriented 3 in no apparent distress there is no fever or chills no headache or dizziness no chest pain no shortness of breath she has occasional cough no nausea or vomiting no abdominal pain no diarrhea and no urinary symptoms her vital exam reveals a temperature of 98.8 pulse 98 respirations 16 blood pressure 158/80 pulse ox 96% on room air white blood count is 19.76 hemoglobin 9.5 platelet count 300 sodium 137 potassium 3.6 chloride 105 CO2 22 BUN 16 creatinine 1.09 On 10/11/2021 patient is alert and oriented 3. Patient remains on IV Zosyn cultures from bronchoscopy pending. Vital signs temp 98.4, pulse rate 98 as tolerated 18, blood pressure 165/83. patient oxygen saturation of 98% on room air On 10/12/2021 patient was seen and examined on the medical floor she is alert and oriented 3 in no apparent distress she is complaining of cough and shortness of breath with activity otherwise she denies any complaints there is no fever or chills no headache or dizziness no chest pain no nausea or vomiting no abdominal pain no diarrhea and no urinary symptoms. At this time we are awaiting bronchoscopy culture results, continue with current medications, prednisone was added yesterday, patient has less wheezing and less shortness of breath today. On 10/13/2021 patient is alert and oriented 3. Per infectious disease patient will likely not require IV antibiotics upon discharge. No further workup of pulmonary patient will possibly need repeat bronchoscopy outpatient cultures currently negative. Patient complains of shortness breath remains on by mouth prednisone. Anticipate discharge in the next 24-48 hours On 10/14/2021 patient was seen and examined on the medical floor she is alert and oriented 3 in no apparent distress she is afebrile white blood count is down to normal she was evaluated and cleared by infectious disease and pulmonary no need for further antibiotic use per Dr. Gregorio, patient will be followed by her primary care physician Dr. Eli, in 1-2 weeks, she will also be followed by pulmonary Dr. Womack as outpatient Patient Condition at Discharge: Good Plan - Discharge Summary Discharge Rx Participant: No New Discharge Prescriptions: New predniSONE 10 mg PO DAILY 5 Days #5 tab Continue Ferrous Sulfate [Iron (65 MG Elemental)] 325 mg PO DAILY@1200 calcitrioL [Calcitriol] 1 mcg PO MOWEFR busPIRone HCL [Buspar] 30 mg PO BID Butalb/APAP/Caff 50-325-40Mg [Fioricet 50-325-40] 1 tab PO Q6H PRN PRN Reason: Migraine Headache Albuterol Sulfate [Albuterol Sulfate Hfa] 2 puff INHALATION RT-Q6H PRN PRN Reason: Shortness Of Breath polyethylene glycoL 3350 [Miralax] 17 gm PO DAILY PRN PRN Reason: Constipation hydrOXYzine pamoate [Vistaril] 50 mg PO TID Omeprazole 20 mg PO DAILY Furosemide [Lasix] 20 mg PO DAILY PRN PRN Reason: Edema Sodium Bicarbonate Tab 650 mg PO DAILY 30 Days #30 tab Ondansetron [Zofran] 4 mg PO Q6H PRN PRN Reason: Nausea Methadone [Dolophine] 20 mg PO BID tab buPROPion XL [Wellbutrin XL] 150 mg PO DAILY Potassium Chloride ER [K-Dur 10] 30 meq PO DAILY PRN PRN Reason: WITH LASIX buPROPion XL [Wellbutrin XL] 300 mg PO DAILY Budesonide/Formoterol Fumarate [Symbicort 160-4.5 Mcg Inhaler] 2 puff INHALATION RT-BID Aspirin EC [Ecotrin Low Dose] 81 mg PO DAILY Levothyroxine Sodium [Synthroid] 100 mcg PO DAILY@30 30 Days #30 tab Mirtazapine [Remeron] 45 mg PO HS Discontinued predniSONE [Deltasone] See Taper PO DIRECTED Discharge Medication List Ferrous Sulfate [Iron (65 MG Elemental)] 325 mg PO DAILY@1200 11/06/15 [History] calcitrioL [Calcitriol] 1 mcg PO MOWEFR 06/07/19 [History] busPIRone HCL [Buspar] 30 mg PO BID 04/14/20 [History] Butalb/APAP/Caff 50-325-40Mg [Fioricet 50-325-40] 1 tab PO Q6H PRN 06/30/20 [History] buPROPion XL [Wellbutrin XL] 300 mg PO DAILY 02/20/21 [History] Albuterol Sulfate [Albuterol Sulfate Hfa] 2 puff INHALATION RT-Q6H PRN 04/07/21 [History] Budesonide/Formoterol Fumarate [Symbicort 160-4.5 Mcg Inhaler] 2 puff INHALATION RT-BID 04/07/21 [History] Aspirin EC [Ecotrin Low Dose] 81 mg PO DAILY 05/12/21 [History] Levothyroxine Sodium [Synthroid] 100 mcg PO DAILY@0630 30 Days #30 tab 06/19/21 [Rx] Furosemide [Lasix] 20 mg PO DAILY PRN 08/08/21 [History] Omeprazole 20 mg PO DAILY 08/08/21 [History] hydrOXYzine pamoate [Vistaril] 50 mg PO TID 08/08/21 [History] polyethylene glycoL 3350 [Miralax] 17 gm PO DAILY PRN 08/08/21 [History] Sodium Bicarbonate Tab 650 mg PO DAILY 30 Days #30 tab 08/21/21 [Rx] Mirtazapine [Remeron] 45 mg PO HS 09/01/21 [History] Ondansetron [Zofran] 4 mg PO Q6H PRN 09/01/21 [History] Methadone [Dolophine] 20 mg PO BID tab 09/10/21 [Rx] Potassium Chloride ER [K-Dur 10] 30 meq PO DAILY PRN 10/08/21 [History] buPROPion XL [Wellbutrin XL] 150 mg PO DAILY 10/08/21 [History] predniSONE 10 mg PO DAILY 5 Days #5 tab 10/14/21 [Rx] Follow up Appointment(s)/Referral(s): Ael Eli MD [Primary Care Provider] - 10/15/21 11:15 am [facility], [NON-STAFF] - 1 Week [facility] [NON-STAFF] - 1 Week [facility], [REFERRING] - 1 Week Patient Instructions/Handouts: Aspiration Pneumonia (DC) Discharge Disposition: HOME WITH HOME HEALTH SERVICES
== END 2021-10-14 15:24 | disposition home health service (06) | DRG 167 ==
LOC: EC 17:53 → 5NMEDONC 22:56
PROVIDERS: ADMIT Internal Medicine; ATTEND Internal Medicine
PROC: 0BBF8ZX Excision of Right Lower Lung Lobe, Via Natural or Artificial Opening Endoscopic, Diagnostic (ICD-10-PCS; principal; 2021-10-09 12:30)
PROC: 0BBJ8ZX Excision of Left Lower Lung Lobe, Via Natural or Artificial Opening Endoscopic, Diagnostic (ICD-10-PCS; principal; 2021-10-09 12:30)
PROC: 0B9J8ZZ Drainage of Left Lower Lung Lobe, Via Natural or Artificial Opening Endoscopic (ICD-10-PCS; principal; 2021-10-09 12:30)
PROC: 3E0436Z Introduction of Nutritional Substance into Central Vein, Percutaneous Approach (ICD-10-PCS; 2021-10-09 12:30)
PROC: 0BDJ8ZX Extraction of Left Lower Lung Lobe, Via Natural or Artificial Opening Endoscopic, Diagnostic (ICD-10-PCS; 2021-10-09 12:30)
DX: J69.0 Pneumonitis due to inhalation of food and vomit (principal); J44.0 Chronic obstructive pulmonary disease with (acute) lower respiratory infection; N18.4 Chronic kidney disease, stage 4 (severe); R64 Cachexia; E46 Unspecified protein-calorie malnutrition; Z68.1 Body mass index [BMI] 19.9 or less, adult; Z16.24 Resistance to multiple antibiotics; R62.7 Adult failure to thrive; G89.4 Chronic pain syndrome; D63.1 Anemia in chronic kidney disease; F41.0 Panic disorder [episodic paroxysmal anxiety]; E03.9 Hypothyroidism, unspecified; M54.2 Cervicalgia; F32.A Depression, unspecified; M19.90 Unspecified osteoarthritis, unspecified site; M48.00 Spinal stenosis, site unspecified; K21.9 Gastro-esophageal reflux disease without esophagitis; K59.00 Constipation, unspecified; G43.909 Migraine, unspecified, not intractable, without status migrainosus; R29.6 Repeated falls; Z79.51 Long term (current) use of inhaled steroids; Z79.82 Long term (current) use of aspirin; Z79.890 Hormone replacement therapy; Z79.891 Long term (current) use of opiate analgesic; Z79.899 Other long term (current) drug therapy; Z80.41 Family history of malignant neoplasm of ovary; Z80.51 Family history of malignant neoplasm of kidney; Z82.49 Family history of ischemic heart disease and other diseases of the circulatory system; Z86.16 Personal history of COVID-19; Z86.73 Personal history of transient ischemic attack (TIA), and cerebral infarction without residual deficits; Z87.01 Personal history of pneumonia (recurrent); Z87.11 Personal history of peptic ulcer disease; Z90.3 Acquired absence of stomach [part of]; Z90.710 Acquired absence of both cervix and uterus; Z88.5 Allergy status to narcotic agent; Z88.8 Allergy status to other drugs, medicaments and biological substances; Z91.048 Other nonmedicinal substance allergy status; Z28.310 Unvaccinated for COVID-19; Z96.642 Presence of left artificial hip joint; Z86.19 Personal history of other infectious and parasitic diseases; Z80.52 Family history of malignant neoplasm of bladder; Z90.49 Acquired absence of other specified parts of digestive tract; Z83.6 Family history of other diseases of the respiratory system; Z91.81 History of falling; Z71.3 Dietary counseling and surveillance
CPT/HCPCS: 31623; 31624; 31625; 31627; 36415; 71045; 71046; 71250; 80048; 80053; 82330; 83735; 84100; 84145; 84478; 84484; 85025; 85610; 85730; 86140; 87040; 87070; 87102; 87116; 87205; 87206; 87252; 87496; 87498; 87502; 87529; 87634; 87798; 88104; 88108; 88305; 89050; 93005; 94640; 94760; 96365; 96375; 99285

== ENCOUNTER 2021-10-22 06:38 | Emergency (ER) | payer MEDICARE, OTHER ==
[2021-10-22 06:46] VITALS: TEMP 98.9
--- NOTE | 2021-10-22 07:02 | ED ---
General Adult HPI - General Chief complaint: Chest Pain Stated complaint: Chest and back pain Time Seen by Provider: 10/22/21 06:49 Source: patient, family, RN notes reviewed Mode of arrival: ambulatory Limitations: no limitations - History of Present Illness Initial comments: This is a 76-year-old female presents emergency Department chief complaint of pain. Patient that she has pain to her ribs, chest, abdomen region. She states that this started overnight. Patient states that she lost her pain medicine which takes methadone daily. Patient states that she had him on her of any tachycardia must have fallen out. Patient was recently admitted for pneumonia in which the patient was treated. She states she was not sent home on any antibiotics she states she was sent home on prednisone. She has a follow-up appointment tomorrow with Dr. Rosenbaum. Denies any increase in cough and congestion. Patient denies any fever or chills night sweats. Patient receives TPN secondary to reflux issues and aspiration. Patient denies any localized pain started when she has a headache. She states she does feel like she is withdrawing. - Related Data Home Medications Medication Instructions Recorded Confirmed Ferrous Sulfate [Iron (65 MG 325 mg PO DAILY@1200 11/06/15 10/08/21 Elemental)] calcitrioL [Calcitriol] 1 mcg PO MOWEFR 06/07/19 10/08/21 busPIRone HCL [Buspar] 30 mg PO BID 04/14/20 10/08/21 Butalb/APAP/Caff 50-325-40Mg 1 tab PO Q6H PRN 06/30/20 10/08/21 [Fioricet 50-325-40] buPROPion XL [Wellbutrin XL] 300 mg PO DAILY 02/20/21 10/08/21 Albuterol Sulfate [Albuterol 2 puff INHALATION RT-Q6H PRN 04/07/21 10/08/21 Sulfate Hfa] Budesonide/Formoterol Fumarate 2 puff INHALATION RT-BID 04/07/21 10/08/21 [Symbicort 160-4.5 Mcg Inhaler] Aspirin EC [Ecotrin Low Dose] 81 mg PO DAILY 05/12/21 10/08/21 Furosemide [Lasix] 20 mg PO DAILY PRN 08/08/21 10/08/21 Omeprazole 20 mg PO DAILY 08/08/21 10/08/21 hydrOXYzine pamoate [Vistaril] 50 mg PO TID 08/08/21 10/08/21 polyethylene glycoL 3350 [Miralax] 17 gm PO DAILY PRN 08/08/21 10/08/21 Mirtazapine [Remeron] 45 mg PO HS 09/01/21 10/08/21 Ondansetron [Zofran] 4 mg PO Q6H PRN 09/01/21 10/08/21 Potassium Chloride ER [K-Dur 10] 30 meq PO DAILY PRN 10/08/21 10/08/21 buPROPion XL [Wellbutrin XL] 150 mg PO DAILY 10/08/21 10/08/21 Previous Rx's Medication Instructions Recorded Levothyroxine Sodium [Synthroid] 100 mcg PO DAILY@0630 30 Days #30 06/19/21 tab Sodium Bicarbonate Tab 650 mg PO DAILY 30 Days #30 tab 08/21/21 Methadone [Dolophine] 20 mg PO BID tab 09/10/21 predniSONE 10 mg PO DAILY 5 Days #5 tab 10/14/21 Allergies Allergy/AdvReac Type Severity Reaction Status Date / Time mold Allergy Itching Verified 10/22/21 06:46 denosumab [From Prolia] AdvReac SEVERE Verified 10/22/21 06:46 CALCIUM LOSS morphine AdvReac Confusion Verified 10/22/21 06:46 DUST Allergy Itching Uncoded 10/22/21 06:46 Review of Systems ROS Statement: Those systems with pertinent positive or pertinent negative responses have been documented in the HPI. ROS Other: All systems not noted in ROS Statement are negative. Past Medical History Past Medical History: Asthma, COPD, CVA/TIA, GERD/Reflux, Memory Impairment, Osteoarthritis (OA), Pneumonia, Renal Disease, Respiratory Disorder, Thyroid Disorder Additional Past Medical History / Comment(s): Aspiration, pneumonias, 1.2021 covid pneumonia, protein calorie malnutrition, pt was on TPN with PICC line managed thru [facility], chronic anemia, gastric ulcers/PUD, pancreatitis, bowel obstruction/surgery, constipation, CKD stage IV, TIA, chronic migraines, chronic back/cervical pain/spinal stenosis, hypothyroid, hyponatremia. DAILY TPN History of Any Multi-Drug Resistant Organisms: None Reported, Other MDRO Date of last positivie culture/infection: 2021 MDRO Source:: urine Past Surgical History: Back Surgery, Bowel Resection, Hysterectomy, Joint Replacement Additional Past Surgical History / Comment(s): LOWER BACK SURGERY lamenectomy/discetomy then had a revison of that sx. 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, nasal sx d/t broken nose, colonoscopy/egd, PAIN CLINIC PROCEDURES, PORT A CATH INSERTION, LT ADEOLA Past Anesthesia/Blood Transfusion Reactions: No Reported Reaction Additional Past Anesthesia/Blood Transfusion Reaction / Comment(s): PT RECEIVED BLOOD TRANSFUSIONS AFTER STOMACH SURGERY Past Psychological History: Anxiety, Depression, Panic Disorder Smoking Status: Never smoker Past Alcohol Use History: None Reported Past Drug Use History: None Reported - Past Family History Father Family Medical History: Cancer, Coronary Artery Disease (CAD) Additional Family Medical History / Comment(s): FATHER HAD BLADDER AND KIDNEY CANCER. FATHER HAD TB WHEN HE WAS A CHILD .FATHER AT AGE 87. Mother Family Medical History: Cancer Additional Family Medical History / Comment(s): MOTHER AT AGE 58 OF OVARIAN CANCER. General Exam Limitations: no limitations General appearance: alert, in no apparent distress Head exam: Present: atraumatic, normocephalic, normal inspection Eye exam: Present: normal appearance, PERRL, EOMI. Absent: scleral icterus, conjunctival injection, periorbital swelling ENT exam: Present: normal exam, normal oropharynx, mucous membranes moist Neck exam: Present: normal inspection, full ROM. Absent: tenderness, meningismus, lymphadenopathy Respiratory exam: Present: normal lung sounds bilaterally, chest wall tenderness. Absent: respiratory distress, wheezes, rales, rhonchi, stridor Cardiovascular Exam: Present: normal rhythm, tachycardia, normal heart sounds. Absent: systolic murmur, diastolic murmur, rubs, gallop, clicks GI/Abdominal exam: Present: soft, normal bowel sounds. Absent: distended, tenderness, guarding, rebound, rigid Neurological exam: Present: alert, oriented X3, CN II-XII intact Course Vital Signs 10/22/21 10/22/21 06:42 07:27 Temperature 98.9 F Pulse Rate 111 H 108 H Respiratory 22 18 Rate Blood Pressure 161/92 166/97 O2 Sat by Pulse 97 96 Oximetry Medical Decision Making - Medical Decision Making Chest x-ray is very similar to her prior chest x-ray patient has been extensively evaluated by pulmonology infectious disease this is chronic issue there is no acute infections. Patient has plain of rib chest wall pain secondary to ND of her methadone. She has headaches she is out of her Fioricet. Patient we given a single dose she has an appointment for her medications. - Lab Data Result diagrams: 10/22/21 07:07 10/22/21 07:07 Lab Results 10/22/21 10/22/21 10/22/21 Range/Units 07:07 07:07 07:07 WBC 14.6 H (3.8-10.6) k/uL RBC 3.78 L (3.80-5.40) m/uL Hgb 10.6 L (11.4-16.0) gm/dL Hct 34.9 (34.0-46.0) % MCV 92.3 (80.0-100.0) fL MCH 28.1 (25.0-35.0) pg MCHC 30.4 L (31.0-37.0) g/dL RDW 18.0 H (11.5-15.5) % Plt Count 662 H (150-450) k/uL MPV 6.8 Neutrophils % 78 % Lymphocytes % 14 % Monocytes % 4 % Eosinophils % 3 % Basophils % 1 % Neutrophils # 11.3 H (1.3-7.7) k/uL Lymphocytes # 2.0 (1.0-4.8) k/uL Monocytes # 0.6 (0-1.0) k/uL Eosinophils # 0.4 (0-0.7) k/uL Basophils # 0.1 (0-0.2) k/uL Hypochromasia Moderate Anisocytosis Slight PT 10.6 (9.0-12.0) sec INR 1.0 (<1.2) APTT 26.7 (22.0-30.0) sec Sodium 141 (137-145) mmol/L Potassium 3.9 (3.5-5.1) mmol/L Chloride 104 (98-107) mmol/L Carbon Dioxide 25 (22-30) mmol/L Anion Gap 12 mmol/L BUN 20 H (7-17) mg/dL Creatinine 1.41 H (0.52-1.04) mg/dL Est GFR (CKD-EPI)AfAm 42 (>60 ml/min/1.73 sqM) Est GFR (CKD-EPI)NonAf 37 (>60 ml/min/1.73 sqM) Glucose 109 H (74-99) mg/dL Calcium 9.0 (8.4-10.2) mg/dL Magnesium 1.8 (1.6-2.3) mg/dL Total Bilirubin 0.4 (0.2-1.3) mg/dL AST 34 (14-36) U/L ALT 31 (4-34) U/L Alkaline Phosphatase 253 H (38-126) U/L Troponin I (0.000-0.034) ng/mL NT-Pro-B Natriuret Pep pg/mL Total Protein 7.2 (6.3-8.2) g/dL Albumin 4.0 (3.5-5.0) g/dL Lipase 105 (23-300) U/L 10/22/21 10/22/21 Range/Units 07:07 07:07 WBC (3.8-10.6) k/uL RBC (3.80-5.40) m/uL Hgb (11.4-16.0) gm/dL Hct (34.0-46.0) % MCV (80.0-100.0) fL MCH (25.0-35.0) pg MCHC (31.0-37.0) g/dL RDW (11.5-15.5) % Plt Count (150-450) k/uL MPV Neutrophils % % Lymphocytes % % Monocytes % % Eosinophils % % Basophils % % Neutrophils # (1.3-7.7) k/uL Lymphocytes # (1.0-4.8) k/uL Monocytes # (0-1.0) k/uL Eosinophils # (0-0.7) k/uL Basophils # (0-0.2) k/uL Hypochromasia Anisocytosis PT (9.0-12.0) sec INR (<1.2) APTT (22.0-30.0) sec Sodium (137-145) mmol/L Potassium (3.5-5.1) mmol/L Chloride (98-107) mmol/L Carbon Dioxide (22-30) mmol/L Anion Gap mmol/L BUN (7-17) mg/dL Creatinine (0.52-1.04) mg/dL Est GFR (CKD-EPI)AfAm (>60 ml/min/1.73 sqM) Est GFR (CKD-EPI)NonAf (>60 ml/min/1.73 sqM) Glucose (74-99) mg/dL Calcium (8.4-10.2) mg/dL Magnesium (1.6-2.3) mg/dL Total Bilirubin (0.2-1.3) mg/dL AST (14-36) U/L ALT (4-34) U/L Alkaline Phosphatase (38-126) U/L Troponin I <0.012 (0.000-0.034) ng/mL NT-Pro-B Natriuret Pep 839 pg/mL Total Protein (6.3-8.2) g/dL Albumin (3.5-5.0) g/dL Lipase (23-300) U/L Disposition Clinical Impression: Chronic pain syndrome, Chronic headaches Disposition: HOME SELF-CARE Condition: Stable Instructions (If sedation given, give patient instructions): Chronic Pain (ED) Additional Instructions: Please return to the Emergency Department if symptoms worsen or any other concerns. Is patient prescribed a controlled substance at d/c from ED?: No Referrals: Ale Eli MD [Primary Care Provider] - 1-2 days Time of Disposition: 08:07
[2021-10-22 07:14] LABS: Anisocytosis Slight; Basophils # (A) 0.1 k/uL (0-0.2); Basophils % (A) 1 %; Eosinophils # (A) 0.4 k/uL (0-0.7); Eosinophils % (A) 3 %; HCT 34.9 % (34.0-46.0); HGB 10.6 gm/dL (11.4-16.0); Hypochromasia Moderate; Lymphocytes % (A) 14 %; MCH 28.1 pg (25.0-35.0); MCHC 30.4 g/dL (31.0-37.0); MCV 92.3 fL (80.0-100.0); Mean Platelet Volume 6.8; Monocytes # (A) 0.6 k/uL (0-1.0); Monocytes % (A) 4 %; Neutrophils # (A) 11.3 k/uL (1.3-7.7); Neutrophils % (A) 78 %; Platelet Count 662 k/uL (150-450); RBC 3.78 m/uL (3.80-5.40); WBC 14.6 k/uL (3.8-10.6)
[2021-10-22 07:23] LABS: Partial Thromboplastin Time 26.7 sec (22.0-30.0); Prothrombin Time 10.6 sec (9.0-12.0)
[2021-10-22 07:27] LABS: Magnesium 1.8 mg/dL (1.6-2.3); Potassium 3.9 mmol/L (3.5-5.1); Total Bilirubin 0.4 mg/dL (0.2-1.3); Total Protein 7.2 g/dL (6.3-8.2)
[2021-10-22 07:28] VITALS: PULSE 108; RESP 18
--- NOTE | 2021-10-22 07:30 | XR ---
EXAMINATION TYPE: XR chest 2V DATE OF EXAM: 10/22/2021 COMPARISON: 10/09/2021 HISTORY: 76-year-old female with chest pain TECHNIQUE: AP and lateral views FINDINGS: Heart normal size. Hyperinflation. Focal left midlung and right upper lobe opacities persist. Patchy density at the right upper lobe similar to slightly increased. Patchy opacities previously seen in th e left lower lobe shows some improvement. Left CVC tip at the caval atrial junction. Old healed fract ure deformity left clavicular shaft. No pleural effusion. IMPRESSION: COPD with continued focal right upper lobe and left midlung opacities. The right upper lobe opacity m ay be slightly increased. Correlate for any potential symptoms of a developing pneumonia. Other left lower lobe opacities are slightly improving.
[2021-10-22 07:32] VITALS: BP 166/97
[2021-10-22] MEDS ORDERED: BUTALB/APAP/CAFF 50-325-40MG TAB PO STA (07:37)
[2021-10-22] MEDS ORDERED: METHADONE 10 MG TAB PO STA (08:07)
== END 2021-10-22 08:24 | disposition home or self-care (01) ==
LOC: EC 06:38
DX: G89.4 Chronic pain syndrome (principal); R51.9 Headache, unspecified; N18.4 Chronic kidney disease, stage 4 (severe); J44.9 Chronic obstructive pulmonary disease, unspecified; K21.9 Gastro-esophageal reflux disease without esophagitis; M19.90 Unspecified osteoarthritis, unspecified site; E03.9 Hypothyroidism, unspecified; F32.A Depression, unspecified; F41.9 Anxiety disorder, unspecified; Z86.73 Personal history of transient ischemic attack (TIA), and cerebral infarction without residual deficits; Z79.82 Long term (current) use of aspirin; Z79.890 Hormone replacement therapy; Z79.51 Long term (current) use of inhaled steroids; Z79.899 Other long term (current) drug therapy
CPT/HCPCS: 36415; 93005; 83880; 80053; 83690; 83735; 84484; 85025; 85610; 85730; 71046; 99285; S0109

== ENCOUNTER 2021-10-23 08:44 | Emergency (ER) | payer MEDICARE, OTHER ==
[2021-10-23 08:50] VITALS: BP 172/90; PULSE 113; RESP 20; TEMP 97.7
[2021-10-23] MEDS ORDERED: BUTALB/APAP/CAFF 50-325-40MG TAB PO STA (09:25)
[2021-10-23] MEDS ORDERED: METHADONE 10 MG TAB PO STA (09:25)
--- NOTE | 2021-10-23 09:27 | ED ---
General Adult HPI - General Chief complaint: Recheck/Abnormal Lab/Rx Stated complaint: Revisit here 10/22/Pain Time Seen by Provider: 10/23/21 09:15 Source: patient, RN notes reviewed, old records reviewed Mode of arrival: ambulatory Limitations: no limitations - History of Present Illness Initial comments: Patient is a 76-year-old female with past medical history remarkable for chronic pain, asthma, COPD, thyroid disorder who presents emergency department seeking daily doses of her home pain medications. Patient lost her medications 3 days ago. She is having her typical chronic back pain, rib pain. Is normally on Fioricet and methadone. States she lost her medications at a of October. A few days ago. Was here yesterday and received a workup which was negative for any acute findings. She has no other acute complaints at this time. She is just presenting to obtain her daily home meds. She states that her prescriptions due to be refilled tomorrow and she'll be not be returning tomorrow as she will receive her medications. - Related Data Home Medications Medication Instructions Recorded Confirmed Ferrous Sulfate [Iron (65 MG 325 mg PO DAILY@1200 11/06/15 10/08/21 Elemental)] calcitrioL [Calcitriol] 1 mcg PO MOWEFR 06/07/19 10/08/21 busPIRone HCL [Buspar] 30 mg PO BID 04/14/20 10/08/21 Butalb/APAP/Caff 50-325-40Mg 1 tab PO Q6H PRN 06/30/20 10/08/21 [Fioricet 50-325-40] buPROPion XL [Wellbutrin XL] 300 mg PO DAILY 02/20/21 10/08/21 Albuterol Sulfate [Albuterol 2 puff INHALATION RT-Q6H PRN 04/07/21 10/08/21 Sulfate Hfa] Budesonide/Formoterol Fumarate 2 puff INHALATION RT-BID 04/07/21 10/08/21 [Symbicort 160-4.5 Mcg Inhaler] Aspirin EC [Ecotrin Low Dose] 81 mg PO DAILY 05/12/21 10/08/21 Furosemide [Lasix] 20 mg PO DAILY PRN 08/08/21 10/08/21 Omeprazole 20 mg PO DAILY 08/08/21 10/08/21 hydrOXYzine pamoate [Vistaril] 50 mg PO TID 08/08/21 10/08/21 polyethylene glycoL 3350 [Miralax] 17 gm PO DAILY PRN 08/08/21 10/08/21 Mirtazapine [Remeron] 45 mg PO HS 09/01/21 10/08/21 Ondansetron [Zofran] 4 mg PO Q6H PRN 09/01/21 10/08/21 Potassium Chloride ER [K-Dur 10] 30 meq PO DAILY PRN 10/08/21 10/08/21 buPROPion XL [Wellbutrin XL] 150 mg PO DAILY 10/08/21 10/08/21 Previous Rx's Medication Instructions Recorded Levothyroxine Sodium [Synthroid] 100 mcg PO DAILY@0630 30 Days #30 06/19/21 tab Sodium Bicarbonate Tab 650 mg PO DAILY 30 Days #30 tab 08/21/21 Methadone [Dolophine] 20 mg PO BID tab 09/10/21 predniSONE 10 mg PO DAILY 5 Days #5 tab 10/14/21 Allergies Allergy/AdvReac Type Severity Reaction Status Date / Time mold Allergy Itching Verified 10/23/21 08:49 denosumab [From Prolia] AdvReac SEVERE Verified 10/23/21 08:49 CALCIUM LOSS morphine AdvReac Confusion Verified 10/23/21 08:49 DUST Allergy Itching Uncoded 10/23/21 08:49 Review of Systems ROS Statement: Those systems with pertinent positive or pertinent negative responses have been documented in the HPI. Review of Systems: CONST: Denies fever EYES: Denies blurry vision ENT: Denies nasal congestion C/V: Denies Chest pain RESP: Denies shortness of breath GI: Denies abdominal pain : Denies dysuria SKIN: Denies rash. MSK: Endorses chronic pain NEURO: Denies headache ROS Other: All systems not noted in ROS Statement are negative. Past Medical History Past Medical History: Asthma, COPD, CVA/TIA, GERD/Reflux, Memory Impairment, Osteoarthritis (OA), Pneumonia, Renal Disease, Respiratory Disorder, Thyroid Disorder Additional Past Medical History / Comment(s): Aspiration, pneumonias, covid pneumonia, protein calorie malnutrition, pt was on TPN with PICC line managed thru [facility], chronic anemia, gastric ulcers/PUD, pancreatitis, bowel obstruction/surgery, constipation, CKD stage IV, TIA, chronic migraines, chronic back/cervical pain/spinal stenosis, hypothyroid, hyponatremia. DAILY TPN History of Any Multi-Drug Resistant Organisms: None Reported, Other MDRO Date of last positivie culture/infection: 2021 MDRO Source:: urine Past Surgical History: Back Surgery, Bowel Resection, Hysterectomy, Joint Replacement Additional Past Surgical History / Comment(s): LOWER BACK SURGERY lamenectomy/discetomy then had a revison of that sx. 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, nasal sx d/t broken nose, colonoscopy/egd, PAIN CLINIC PROCEDURES, PORT A CATH INSERTION, LT ADEOLA Past Anesthesia/Blood Transfusion Reactions: No Reported Reaction Additional Past Anesthesia/Blood Transfusion Reaction / Comment(s): PT RECEIVED BLOOD TRANSFUSIONS AFTER STOMACH SURGERY Past Psychological History: Anxiety, Depression, Panic Disorder Smoking Status: Never smoker Past Alcohol Use History: None Reported Past Drug Use History: None Reported - Past Family History Father Family Medical History: Cancer, Coronary Artery Disease (CAD) Additional Family Medical History / Comment(s): FATHER HAD BLADDER AND KIDNEY CANCER. FATHER HAD TB WHEN HE WAS A CHILD .FATHER AT AGE 87. Mother Family Medical History: Cancer Additional Family Medical History / Comment(s): MOTHER AT AGE 58 OF OVARIAN CANCER. General Exam - General Exam Comments Initial Comments: General: Appears in no acute distress. Does appear slightly anxious. HEAD: Normal with no signs of head trauma. EYES: PERRLA, EOMI, conjunctiva normal, no discharge. ENT: Hearing grossly intact, normal oropharynx. RESPIRATORY: Clear breath sounds bilaterally. No wheezes, rales, or rhonchi. C/V: Regular rate and rhythm. S1 and S2 auscultated, no edema, peripheral pulses 2+ and intact throughout ABD: Abd is soft, nontender, nondistended EXT: Normal range of motion, no obvious deformity. Chronic rib pain and back pain. SKIN: No rashes or lesions observed on exposed skin. NEURO: Alert and oriented 4. No focal deficits. Limitations: no limitations Course Vital Signs 10/23/21 08:46 Temperature 97.7 F Pulse Rate 113 H Respiratory 20 Rate Blood Pressure 172/90 O2 Sat by Pulse 98 Oximetry Medical Decision Making - Medical Decision Making Based on patient's presentation and physical exam, I do believe she is here just for daily dose of her morning pain medications. And she wishes to go home. She is on methadone 20 mg as well as Fioricet. I did agree to administer these but she will not receive a prescription. She can receive a prescription tomorrow. Yesterday received a full workup that was unremarkable and discharged home. Do not believe that further laboratory studies or imaging are required at this time. She will receive her prescription tomorrow. She was in agreement this plan. Vital signs are within normal limits except for slight tachycardia which is likely secondary to anxiety as well as pain. I instructed the patient to follow up with their PCP in the next 1-3 days. I explained that the patient should return to the emergency department if they experience any worsening symptoms. Strict return precautions were discussed with the patient. The patient expressed understanding of these instructions. I answered all questions that the patient had. The patient was discharged home in good condition with their prescriptions and follow up information. Disposition Clinical Impression: Chronic pain Disposition: HOME SELF-CARE Condition: Good Instructions (If sedation given, give patient instructions): Chronic Pain (ED) Is patient prescribed a controlled substance at d/c from ED?: No Referrals: Ale Eli MD [Primary Care Provider] - 1-2 days Time of Disposition: 09:26
== END 2021-10-23 09:38 | disposition home or self-care (01) ==
LOC: EC 08:44
DX: G89.29 Other chronic pain (principal); J44.9 Chronic obstructive pulmonary disease, unspecified; K21.9 Gastro-esophageal reflux disease without esophagitis; E07.9 Disorder of thyroid, unspecified; Z79.83 Long term (current) use of bisphosphonates; Z79.899 Other long term (current) drug therapy; Z91.041 Radiographic dye allergy status; Z88.4 Allergy status to anesthetic agent; Z88.8 Allergy status to other drugs, medicaments and biological substances
CPT/HCPCS: 99283; S0109

== ENCOUNTER 2021-10-28 08:33 | Observation (INO) | payer MEDICARE, OTHER ==
[2021-10-28] MEDS ORDERED: METHADONE 5 MG TAB PO STA (09:10)
--- NOTE | 2021-10-28 09:14 | ED ---
General Adult HPI - General Chief complaint: Shortness of Breath Stated complaint: SOB Time Seen by Provider: 10/28/21 08:56 Source: patient, RN notes reviewed, old records reviewed Mode of arrival: ambulatory Limitations: no limitations - History of Present Illness Initial comments: 76-year-old female who had presented for evaluation of PICC line malfunction. Patient is on TPN she's not able to eat secondary to aspiration risk. She does take methadone for chronic pain. She presents today after accidentally cutting one of the ports from her PICC line this occurred 2 days prior and she has not had any TPN since that time. She also reports some mild dyspnea which he states is baseline. No fever. No cough. No chest pain. No abdominal pain. Pain complaints are chronic. - Related Data Home Medications Medication Instructions Recorded Confirmed Ferrous Sulfate [Iron (65 MG 325 mg PO DAILY@1200 11/06/15 10/08/21 Elemental)] calcitrioL [Calcitriol] 1 mcg PO MOWEFR 06/07/19 10/08/21 busPIRone HCL [Buspar] 30 mg PO BID 04/14/20 10/08/21 Butalb/APAP/Caff 50-325-40Mg 1 tab PO Q6H PRN 06/30/20 10/08/21 [Fioricet 50-325-40] buPROPion XL [Wellbutrin XL] 300 mg PO DAILY 02/20/21 10/08/21 Albuterol Sulfate [Albuterol 2 puff INHALATION RT-Q6H PRN 04/07/21 10/08/21 Sulfate Hfa] Budesonide/Formoterol Fumarate 2 puff INHALATION RT-BID 04/07/21 10/08/21 [Symbicort 160-4.5 Mcg Inhaler] Aspirin EC [Ecotrin Low Dose] 81 mg PO DAILY 05/12/21 10/08/21 Furosemide [Lasix] 20 mg PO DAILY PRN 08/08/21 10/08/21 Omeprazole 20 mg PO DAILY 08/08/21 10/08/21 hydrOXYzine pamoate [Vistaril] 50 mg PO TID 08/08/21 10/08/21 polyethylene glycoL 3350 [Miralax] 17 gm PO DAILY PRN 08/08/21 10/08/21 Mirtazapine [Remeron] 45 mg PO HS 09/01/21 10/08/21 Ondansetron [Zofran] 4 mg PO Q6H PRN 09/01/21 10/08/21 Potassium Chloride ER [K-Dur 10] 30 meq PO DAILY PRN 10/08/21 10/08/21 buPROPion XL [Wellbutrin XL] 150 mg PO DAILY 10/08/21 10/08/21 Previous Rx's Medication Instructions Recorded Levothyroxine Sodium [Synthroid] 100 mcg PO DAILY@0630 30 Days #30 06/19/21 tab Sodium Bicarbonate Tab 650 mg PO DAILY 30 Days #30 tab 08/21/21 Methadone [Dolophine] 20 mg PO BID tab 09/10/21 predniSONE 10 mg PO DAILY 5 Days #5 tab 10/14/21 Allergies Allergy/AdvReac Type Severity Reaction Status Date / Time mold Allergy Itching Verified 10/23/21 08:49 denosumab [From Prolia] AdvReac SEVERE Verified 10/23/21 08:49 CALCIUM LOSS morphine AdvReac Confusion Verified 10/23/21 08:49 DUST Allergy Itching Uncoded 10/23/21 08:49 Review of Systems ROS Statement: Those systems with pertinent positive or pertinent negative responses have been documented in the HPI. ROS Other: All systems not noted in ROS Statement are negative. Past Medical History Past Medical History: Asthma, COPD, CVA/TIA, GERD/Reflux, Memory Impairment, Osteoarthritis (OA), Pneumonia, Renal Disease, Respiratory Disorder, Thyroid Disorder Additional Past Medical History / Comment(s): Aspiration, pneumonias, 1.2021 covid pneumonia, protein calorie malnutrition, pt was on TPN with PICC line managed thru [facility], chronic anemia, gastric ulcers/PUD, pancreatitis, bowel obstruction/surgery, constipation, CKD stage IV, TIA, chronic migraines, chronic back/cervical pain/spinal stenosis, hypothyroid, hyponatremia. DAILY TPN History of Any Multi-Drug Resistant Organisms: None Reported, Other MDRO Date of last positivie culture/infection: 2021 MDRO Source:: urine Past Surgical History: Back Surgery, Bowel Resection, Hysterectomy, Joint Replacement Additional Past Surgical History / Comment(s): LOWER BACK SURGERY lamenectomy/discetomy then had a revison of that sx. 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, nasal sx d/t broken nose, colonoscopy/egd, PAIN CLINIC PROCEDURES, PORT A CATH INSERTION, LT ADEOLA Past Anesthesia/Blood Transfusion Reactions: No Reported Reaction Additional Past Anesthesia/Blood Transfusion Reaction / Comment(s): PT RECEIVED BLOOD TRANSFUSIONS AFTER STOMACH SURGERY Past Psychological History: Anxiety, Depression, Panic Disorder Smoking Status: Never smoker Past Alcohol Use History: None Reported Past Drug Use History: None Reported - Past Family History Father Family Medical History: Cancer, Coronary Artery Disease (CAD) Additional Family Medical History / Comment(s): FATHER HAD BLADDER AND KIDNEY CANCER. FATHER HAD TB WHEN HE WAS A CHILD .FATHER AT AGE 87. Mother Family Medical History: Cancer Additional Family Medical History / Comment(s): MOTHER AT AGE 58 OF OVARIAN CANCER. General Exam Limitations: no limitations General appearance: alert, cachectic Head exam: Present: atraumatic, normocephalic Eye exam: Present: normal appearance, PERRL ENT exam: Present: normal exam Neck exam: Present: normal inspection Respiratory exam: Present: normal lung sounds bilaterally. Absent: respiratory distress, wheezes, rales, rhonchi Cardiovascular Exam: Present: regular rate, normal rhythm GI/Abdominal exam: Present: soft. Absent: distended, tenderness Extremities exam: Present: normal inspection, normal capillary refill Neurological exam: Present: alert, oriented X3, CN II-XII intact. Absent: motor sensory deficit Psychiatric exam: Present: normal affect, normal mood Skin exam: Present: warm, dry, intact Course Vital Signs 10/28/21 08:39 Temperature 97.9 F Pulse Rate 107 H Respiratory 20 Rate Blood Pressure 140/87 O2 Sat by Pulse 98 Oximetry EKG Findings - EKG Comments: EKG Findings:: EKG: Sinus tachycardia rate of 102, PA interval 121, QRS duration 74, QTC 396 Medical Decision Making - Medical Decision Making Patient placed on IV fluids, basic laboratory tests are obtained and results pending, picc line team has been placed on consult. Patient will be admitted to Dr. Desir who is aware of the patient. Disposition Clinical Impression: Anorexia, Malnutrition, Chronic pain Disposition: ADMITTED IP TO THIS [facility] Condition: Stable Is patient prescribed a controlled substance at d/c from ED?: No Referrals: Ale Eli MD [Primary Care Provider] - 1-2 days Time of Disposition: 09:59
[2021-10-28] MEDS ORDERED: NALOXONE 0.4 MG/ML 1 ML VIAL IV PRN (09:57)
[2021-10-28] MEDS ORDERED: ACETAMINOPHEN TAB 325 MG TAB PO PRN (09:57)
[2021-10-28] MEDS: SODIUM CHLORIDE 0.9% 1,000 ML IV SCH ×2 (09:58→23:10)
[2021-10-28 10:46] LABS: Anisocytosis Slight; Basophils # (A) 0.1 k/uL (0-0.2); Basophils % (A) 1 %; Eosinophils # (A) 0.3 k/uL (0-0.7); Eosinophils % (A) 2 %; HCT 37.6 % (34.0-46.0); HGB 11.4 gm/dL (11.4-16.0); Hypochromasia Marked; Lymphocytes # (A) 1.1 k/uL (1.0-4.8); Lymphocytes % (A) 9 %; MCH 27.9 pg (25.0-35.0); MCHC 30.3 g/dL (31.0-37.0); MCV 92.1 fL (80.0-100.0); Mean Platelet Volume 7.2; Monocytes # (A) 0.6 k/uL (0-1.0); Monocytes % (A) 5 %; Neutrophils # (A) 10.2 k/uL (1.3-7.7); Neutrophils % (A) 83 %; Platelet Count 464 k/uL (150-450); RBC 4.08 m/uL (3.80-5.40); RDW 18.1 % (11.5-15.5); WBC 12.4 k/uL (3.8-10.6)
[2021-10-28 11:02] LABS: Albumin 3.6 g/dL (3.5-5.0); Calcium 8.7 mg/dL (8.4-10.2); Potassium 4.3 mmol/L (3.5-5.1); Total Bilirubin 0.3 mg/dL (0.2-1.3); Total Protein 6.7 g/dL (6.3-8.2)
[2021-10-28] MEDS ORDERED: ONDANSETRON 4 MG TAB PO PRN (13:44)
[2021-10-28] MEDS ORDERED: polyethylene glycoL 3350 17 GM POWD.PACK PO PRN (13:44)
[2021-10-28] MEDS ORDERED: ALBUTEROL NEBULIZED 2.5 MG/3 ML INHALATION PRN (13:44)
[2021-10-28] MEDS ORDERED: FUROSEMIDE 20 MG TAB PO PRN (13:44)
[2021-10-28] MEDS ORDERED: POTASSIUM CHLORIDE ER 10 MEQ TAB.ER.PRT PO PRN (13:44)
[2021-10-28] MEDS ORDERED: buPROPion XL 300 MG TAB.ER.24H PO SCH (13:45)
[2021-10-28] MEDS: BUTALB/APAP/CAFF 50-325-40MG TAB PO PRN ×2 (13:59→20:06)
[2021-10-28] MEDS: HYDROmorphone 0.5 MG/0.5 ML SYRINGE IVP PRN ×3 (14:00→22:04)
[2021-10-28] MEDS: hydrOXYzine pamoate 25 MG CAP PO SCH ×2 (15:03→20:06)
[2021-10-28] MEDS: buPROPion XL 150 MG TAB.ER.24H PO SCH (15:03)
--- NOTE | 2021-10-28 15:46 | IR ---
PICC LINE PLACEMENT: HISTORY: Infection requiring long-term antibiotic therapy PROCEDURE: Fluoroscopic-guided of left upper extremity PICC line exchange over a guidewire. COMPLICATIONS: None ANESTHESIA: 1. 1% Lidocaine locally. FINDINGS/TECHNIQUE: The procedure was explained to the patient. The risks, complications, benefits and alternatives were discussed and any questions were answered. Informed consent was obtained. The patient was placed supine on the fluoroscopic table and prepped and draped in the usual sterile fash ion. Pre-existing catheter was removed over a 0.018 guidewire. A 4-F sheath was placed over the guid ewire. The guidewire and dilator were removed and a 4-F. PICC line was placed through the sheath wit h the tip at the level of the SVC. The sheath was removed, the catheter was flushed and sutured into position. The patient was stable throughout the procedure and remained stable upon discharge from [facility] Department of Radiology. The vein puncture was patent under ultrasound. A wilder scale image was obtained to document patency of the vein punctured. All elements of the maximal barrier technique were utilized. FLUOROSCOPY TIME: 0.1 minutes and 1 uterus IMPRESSION: Successful PICC line placement exchange fluoroscopic guidance.
--- NOTE | 2021-10-28 17:08 | P.HPIM ---
History of Present Illness H&P Date: 10/28/21 Louise Sutton, is a 76-year-old female who presented to [facility] emergency room after accidentally cutting off one of the ports of her PICC line at home. She was evaluated in the emergency room vital examination on presentation revealed a temperature of 97.9 pulse 107 respiration 20 blood pressure 140/87 pulse ox 98% on room air Laboratory data revealed a white blood count of 12.4 hemoglobin 11.4 platelet count 464 BUN 18 creatinine 1.28 Testing in the emergency room revealed, EKG done in the emergency room revealed sinus tachycardia with biatrial enlargement Patient was admitted to medical floor for further evaluation and treatment. Consultation for PICC line placement was initiated. Past Medical History Past Medical History: Asthma, COPD, CVA/TIA, GERD/Reflux, Memory Impairment, Osteoarthritis (OA), Pneumonia, Renal Disease, Respiratory Disorder, Thyroid Disorder Additional Past Medical History / Comment(s): Aspiration, pneumonias, 1.2021 covid pneumonia, protein calorie malnutrition, pt was on TPN with PICC line managed thru [facility], chronic anemia, gastric ulcers/PUD, pancreatitis, bowel obstruction/surgery, constipation, CKD stage IV, TIA, chronic migraines, chronic back/cervical pain/spinal stenosis, hypothyroid, hyponatremia. DAILY TPN History of Any Multi-Drug Resistant Organisms: None Reported, Other MDRO Date of last positivie culture/infection: 2021 MDRO Source:: urine Past Surgical History: Back Surgery, Bowel Resection, Hysterectomy, Joint Replacement Additional Past Surgical History / Comment(s): LOWER BACK SURGERY lamenectomy/discetomy then had a revison of that sx. 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, nasal sx d/t broken nose, colonoscopy/egd, PAIN CLINIC PROCEDURES, PORT A CATH INSERTION, LT ADEOLA Past Anesthesia/Blood Transfusion Reactions: No Reported Reaction Additional Past Anesthesia/Blood Transfusion Reaction / Comment(s): PT RECEIVED BLOOD TRANSFUSIONS AFTER STOMACH SURGERY Past Psychological History: Anxiety, Depression, Panic Disorder Additional Psychological History / Comment(s): Pt resides alone in an apartment. She has a limited legal guardian, Rosario Oneal. There is a petition filed to modify LG. Pt states her sister, Kamilah Gann with eventually be her LG. She had [facility] home care for TPN. She uses a walker at times to ambulate. She no longer drives, her telemetry registered nurse Jonn Parnell drives her to [employer] She has ACT visits twice a week to check on her mental health. She recieves her meds in blister packs. Smoking Status: Never smoker Past Alcohol Use History: None Reported Past Drug Use History: None Reported - Past Family History Father Family Medical History: Cancer, Coronary Artery Disease (CAD) Additional Family Medical History / Comment(s): FATHER HAD BLADDER AND KIDNEY CANCER. FATHER HAD TB WHEN HE WAS A CHILD .FATHER AT AGE 87. Mother Family Medical History: Cancer Additional Family Medical History / Comment(s): MOTHER AT AGE 58 OF OVARIAN CANCER. Medications and Allergies Home Medications Medication Instructions Recorded Confirmed Type Ferrous Sulfate [Iron (65 MG 325 mg PO DAILY@1200 11/06/15 10/28/21 History Elemental)] calcitrioL [Calcitriol] 1 mcg PO MOWEFR 06/07/19 10/28/21 History busPIRone HCL [Buspar] 30 mg PO BID 04/14/20 10/28/21 History Butalb/APAP/Caff 50-325-40Mg 1 tab PO Q6H PRN 06/30/20 10/28/21 History [Fioricet 50-325-40] buPROPion XL [Wellbutrin XL] 300 mg PO DAILY 02/20/21 10/28/21 History Albuterol Sulfate [Albuterol 2 puff INHALATION RT-Q6H PRN 04/07/21 10/28/21 History Sulfate Hfa] Budesonide/Formoterol Fumarate 2 puff INHALATION RT-BID 04/07/21 10/28/21 History [Symbicort 160-4.5 Mcg Inhaler] Aspirin EC [Ecotrin Low Dose] 81 mg PO DAILY 05/12/21 10/28/21 History Levothyroxine Sodium [Synthroid] 100 mcg PO DAILY@0630 30 Days #30 06/19/21 10/28/21 Rx tab Furosemide [Lasix] 20 mg PO DAILY PRN 08/08/21 10/28/21 History Omeprazole 20 mg PO DAILY 08/08/21 10/28/21 History hydrOXYzine pamoate [Vistaril] 50 mg PO TID 08/08/21 10/28/21 History polyethylene glycoL 3350 [Miralax] 17 gm PO DAILY PRN 08/08/21 10/28/21 History Sodium Bicarbonate Tab 650 mg PO DAILY 30 Days #30 tab 08/21/21 10/28/21 Rx Mirtazapine [Remeron] 45 mg PO HS 09/01/21 10/28/21 History Ondansetron [Zofran] 4 mg PO Q6H PRN 09/01/21 10/28/21 History Methadone [Dolophine] 20 mg PO BID tab 09/10/21 10/28/21 Rx Potassium Chloride ER [K-Dur 10] 30 meq PO DAILY PRN 10/08/21 10/28/21 History buPROPion XL [Wellbutrin XL] 150 mg PO DAILY 10/08/21 10/28/21 History Loratadine [Claritin] 10 mg PO DAILY 10/28/21 10/28/21 History Allergies Allergy/AdvReac Type Severity Reaction Status Date / Time mold Allergy Itching Verified 10/28/21 10:51 denosumab [From Prolia] AdvReac SEVERE Verified 10/28/21 10:51 CALCIUM LOSS morphine AdvReac Confusion Verified 10/28/21 10:51 DUST Allergy Itching Uncoded 10/28/21 10:51 Physical Exam Vitals: Vital Signs Temp Pulse Pulse Resp BP BP Pulse Ox 10/28/21 14:56 97.9 F 94 18 144/83 99 10/28/21 14:29 98.3 F 100 19 136/85 99 10/28/21 10:50 97.5 F L 98 20 158/98 98 10/28/21 10:32 98.2 F 100 20 138/78 97 10/28/21 08:39 97.9 F 107 H 20 140/87 98 Intake and Output 10/28/21 10/28/21 10/28/21 06:59 14:59 22:59 Intake Total 221 Balance 221 Intake: Oral 221 Other: # Voids 1 Weight 38.102 kg Physical exam In general patient is alert and oriented x 3 in no distress HEENT head normocephalic and atraumatic Neck is supple no JVD no goiter no lymphadenopathy no carotid bruit Chest examination is clear to auscultation no crackles no wheezing Cardiac exam reveals regular heart sounds S1 and S2 no gallops no murmurs Abdomen is soft nontender no organomegaly with normal bowel sounds Extremity exam reveals no edema no cyanosis or clubbing Neurological examination reveals no gross focal deficits Results CBC & Chem 7: 10/28/21 10:00 10/28/21 10:00 Labs: Abnormal Lab Results - Last 24 Hours (Table) 10/28/21 10/28/21 Range/Units 10:00 10:00 WBC 12.4 H (3.8-10.6) k/uL MCHC 30.3 L (31.0-37.0) g/dL RDW 18.1 H (11.5-15.5) % Plt Count 464 H (150-450) k/uL Neutrophils # 10.2 H (1.3-7.7) k/uL Chloride 108 H (98-107) mmol/L BUN 18 H (7-17) mg/dL Creatinine 1.28 H (0.52-1.04) mg/dL Glucose 100 H (74-99) mg/dL Alkaline Phosphatase 236 H (38-126) U/L Thrombosis Risk Factor Assmnt - Choose All That Apply Any of the Below Risk Factors Present?: No Other Risk Factors: Yes Each Risk Factor Represents 2 Points: Age 61-74 years, Central venous access Other congenital or acquired thrombophilia - If yes, enter type in comment: No Thrombosis Risk Factor Assessment Total Risk Factor Score: 4 Thrombosis Risk Factor Assessment Level: Moderate Risk Assessment and Plan Plan: Dysfunctional PICC line in the left Underlying history of recurrent pneumonia Underlying history of gastrectomy patient is maintained on TPN Underlying history of hypothyroidism Underlying history of chronic kidney disease Underlying history of depression with anxiety disorder Underlying history of migraine headache Previous history of stroke in the past Patient is admitted for 24-hour observation Consultation for PICC line replacement was initiated Continue with IV fluids resume TPN if possible Possible discharge to home tomorrow
[2021-10-28] MEDS: METHADONE 10 MG TAB PO SCH (20:04)
[2021-10-28] MEDS: busPIRone HCl 10 MG TAB PO SCH (20:04)
[2021-10-28] MEDS: SYMBICORT 160-4.5 MCG INHALER INHALATION SCH (20:51)
[2021-10-28] MEDS ORDERED: MIRTAZAPINE 45 MG TABLET PO SCH (21:00)
[2021-10-29] MEDS: HYDROmorphone 0.5 MG/0.5 ML SYRINGE IVP PRN ×4 (02:15→14:23)
[2021-10-29] MEDS: BUTALB/APAP/CAFF 50-325-40MG TAB PO PRN ×2 (04:30→10:35)
[2021-10-29] MEDS ORDERED: LEVOTHYROXINE 100 MCG TAB PO SCH (06:30)
[2021-10-29] MEDS ORDERED: PANTOPRAZOLE 40 MG TABLET PO SCH (07:30)
[2021-10-29] MEDS: SYMBICORT 160-4.5 MCG INHALER INHALATION SCH (08:04)
[2021-10-29] MEDS: buPROPion XL 150 MG TAB.ER.24H PO SCH (08:33)
[2021-10-29] MEDS: METHADONE 10 MG TAB PO SCH (08:34)
[2021-10-29] MEDS: busPIRone HCl 10 MG TAB PO SCH (08:34)
[2021-10-29] MEDS: hydrOXYzine pamoate 25 MG CAP PO SCH (08:34)
[2021-10-29] MEDS ORDERED: LORATADINE 10 MG TAB PO SCH (09:00)
[2021-10-29] MEDS ORDERED: ASPIRIN 81 MG PO SCH (09:00)
[2021-10-29] MEDS ORDERED: SODIUM BICARBONATE TAB 650 MG TAB PO SCH (09:00)
[2021-10-29] MEDS: SODIUM CHLORIDE 0.9% 1,000 ML IV SCH (10:34)
[2021-10-29] MEDS ORDERED: FERROUS SULFATE 325 MG TAB PO SCH (12:00)
[2021-10-29 13:53] VITALS: BP 124/67; PULSE 109; RESP 14; TEMP 98.3
--- NOTE | 2021-10-29 14:54 | P.NPCON ---
History of Present Illness - Reason for Consult chronic renal failure - History of Present Illness Patient is a 76-year-old female with history of chronic kidney disease NKF stage IIIB with previous creatinine around 1.1-1.4 mg/dL. Etiology is nephrosclerosis and atrophic right kidney. Patient was admitted to the hospital as her PICC line was accidentally snipped. A new PICC line has been placed Patient denies any significant complaints except for itching. She is maintained on Vistaril Review of Systems As per HPI, other systems negative Past Medical History Past Medical History: Asthma, COPD, CVA/TIA, GERD/Reflux, Memory Impairment, Osteoarthritis (OA), Pneumonia, Renal Disease, Respiratory Disorder, Thyroid Disorder Additional Past Medical History / Comment(s): Aspiration, pneumonias, 1.2021 covid pneumonia, protein calorie malnutrition, pt was on TPN with PICC line managed thru [facility], chronic anemia, gastric ulcers/PUD, pancreatitis, bowel obstruction/surgery, constipation, CKD stage IV, TIA, chronic migraines, chronic back/cervical pain/spinal stenosis, hypothyroid, hyponatremia. DAILY TPN History of Any Multi-Drug Resistant Organisms: None Reported, Other MDRO Date of last positivie culture/infection: 2021 MDRO Source:: urine Past Surgical History: Back Surgery, Bowel Resection, Hysterectomy, Joint Replacement Additional Past Surgical History / Comment(s): LOWER BACK SURGERY lamenectomy/discetomy then had a revison of that sx. 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, nasal sx d/t broken nose, colonoscopy/egd, PAIN CLINIC PROCEDURES, PORT A CATH INSERTION, LT ADEOLA Past Anesthesia/Blood Transfusion Reactions: No Reported Reaction Additional Past Anesthesia/Blood Transfusion Reaction / Comment(s): PT RECEIVED BLOOD TRANSFUSIONS AFTER STOMACH SURGERY Past Psychological History: Anxiety, Depression, Panic Disorder Additional Psychological History / Comment(s): Pt resides alone in an apartment. She has a limited legal guardian, Rosario Oneal. There is a petition filed to modify LG. Pt states her sister, Kamilah Gann with eventually be her LG. She had [facility] home care for TPN. She uses a walker at times to ambulate. She no longer drives, her cryptographic vulnerability analyst Jonn Broussardnora drives her to [address]. She has [facility] visits twice a week to check on her mental health. She recieves her meds in blister packs. Smoking Status: Never smoker Past Alcohol Use History: None Reported Past Drug Use History: None Reported - Past Family History Father Family Medical History: Cancer, Coronary Artery Disease (CAD) Additional Family Medical History / Comment(s): FATHER HAD BLADDER AND KIDNEY CANCER. FATHER HAD TB WHEN HE WAS A CHILD .FATHER AT AGE 87. Mother Family Medical History: Cancer Additional Family Medical History / Comment(s): MOTHER AT AGE 58 OF OVARIAN CANCER. Medications and Allergies Home Medications Medication Instructions Recorded Confirmed Type Ferrous Sulfate [Iron (65 MG 325 mg PO DAILY@1200 11/06/15 10/28/21 History Elemental)] calcitrioL [Calcitriol] 1 mcg PO MOWEFR 06/07/19 10/28/21 History busPIRone HCL [Buspar] 30 mg PO BID 04/14/20 10/28/21 History Butalb/APAP/Caff 50-325-40Mg 1 tab PO Q6H PRN 06/30/20 10/28/21 History [Fioricet 50-325-40] buPROPion XL [Wellbutrin XL] 300 mg PO DAILY 02/20/21 10/28/21 History Albuterol Sulfate [Albuterol 2 puff INHALATION RT-Q6H PRN 04/07/21 10/28/21 History Sulfate Hfa] Budesonide/Formoterol Fumarate 2 puff INHALATION RT-BID 04/07/21 10/28/21 History [Symbicort 160-4.5 Mcg Inhaler] Aspirin EC [Ecotrin Low Dose] 81 mg PO DAILY 05/12/21 10/28/21 History Levothyroxine Sodium [Synthroid] 100 mcg PO DAILY@0630 30 Days #30 06/19/21 10/28/21 Rx tab Furosemide [Lasix] 20 mg PO DAILY PRN 08/08/21 10/28/21 History Omeprazole 20 mg PO DAILY 08/08/21 10/28/21 History hydrOXYzine pamoate [Vistaril] 50 mg PO TID 08/08/21 10/28/21 History polyethylene glycoL 3350 [Miralax] 17 gm PO DAILY PRN 08/08/21 10/28/21 History Sodium Bicarbonate Tab 650 mg PO DAILY 30 Days #30 tab 05/04/22 07/11/22 Rx Mirtazapine [Remeron] 45 mg PO HS 09/01/21 10/28/21 History Ondansetron [Zofran] 4 mg PO Q6H PRN 09/01/21 10/28/21 History Methadone [Dolophine] 20 mg PO BID tab 09/10/21 10/28/21 Rx Potassium Chloride ER [K-Dur 10] 30 meq PO DAILY PRN 10/08/21 10/28/21 History buPROPion XL [Wellbutrin XL] 150 mg PO DAILY 10/08/21 10/28/21 History Loratadine [Claritin] 10 mg PO DAILY 10/28/21 10/28/21 History Acetaminophen Tab [Tylenol] 650 mg PO Q6HR PRN tab 10/29/21 Rx HYDROcodone/APAP 7.5-325MG [[place] 1 tab PO Q6HR PRN 3 Days #12 tab 10/29/21 Rx 7.5-325] Allergies Allergy/AdvReac Type Severity Reaction Status Date / Time mold Allergy Itching Verified 10/28/21 10:51 denosumab [From Prolia] AdvReac SEVERE Verified 10/28/21 10:51 CALCIUM LOSS morphine AdvReac Confusion Verified 10/28/21 10:51 DUST Allergy Itching Uncoded 10/28/21 10:51 Physical Exam Vitals: Vital Signs Temp Pulse Resp BP Pulse Ox 10/29/21 13:49 98.3 F 109 H 14 124/67 98 10/29/21 07:00 98.1 F 85 16 121/73 97 10/29/21 00:42 98.3 F 103 H 17 144/77 97 10/28/21 19:32 98.6 F 107 H 18 133/78 97 10/28/21 14:56 97.9 F 94 18 144/83 99 Intake and Output 10/28/21 10/29/21 10/29/21 22:59 06:59 14:59 Intake Total 480 Balance 480 Intake: Oral 480 Other: Voiding Method Toilet Toilet # Voids 1 2 Patient is awake, comfortable, not in any acute distress Examination of the heart S1 and S2 Examination of the lungs bilateral breath sounds are heard Examination lower extremity shows no evidence of edema Abdomen is soft nontender [employer] examination grossly intact Patient has multiple scratch clemente and superficial ulcerations. Results - Lab Results Most recent lab results Calcium 8.7 mg/dL (8.4-10.2) 10/28/21 10:00 10/28/21 10:00 10/28/21 10:00 Assessment and Plan Assessment: 1. Chronic kidney disease NKF stage III B secondary to nephrosclerosis and atrophic right kidney. Baseline creatinine about 1.2-1.4 mg/dL 2. Accidental removal off PICC line status post new PICC line placement 3. Underlying history of recurrent pneumonia 4. History of gastrectomy currently maintained on TPN 5. CK D mineral bone disorder with significant itching noted. PTH will be ordered and patient start Rocaltrol if PTH is significantly elevated. Plan: Okay to proceed with PICC line placement. Follow-up for CK D as outpatient. And Rocaltrol if PTH is significantly elevated to help with the itching.
== END 2021-10-29 14:32 | disposition home or self-care (01) ==
LOC: CATHCVL 08:33 → 6NMEDSUR 09:57 → EEVIPCON 09:57 → 6NMEDSUR 10:35
PROVIDERS: ADMIT Internal Medicine; ATTEND Internal Medicine
DX: T82.7XXA Infection and inflammatory reaction due to other cardiac and vascular devices, implants and grafts, initial encounter (principal); J44.9 Chronic obstructive pulmonary disease, unspecified; K21.9 Gastro-esophageal reflux disease without esophagitis; R41.3 Other amnesia; F41.9 Anxiety disorder, unspecified; F32.A Depression, unspecified; F41.0 Panic disorder [episodic paroxysmal anxiety]; E83.9 Disorder of mineral metabolism, unspecified; M19.90 Unspecified osteoarthritis, unspecified site; Z86.73 Personal history of transient ischemic attack (TIA), and cerebral infarction without residual deficits; Z87.01 Personal history of pneumonia (recurrent); N18.4 Chronic kidney disease, stage 4 (severe); E46 Unspecified protein-calorie malnutrition; G43.909 Migraine, unspecified, not intractable, without status migrainosus; G89.29 Other chronic pain; M54.9 Dorsalgia, unspecified; M54.2 Cervicalgia; E03.9 Hypothyroidism, unspecified; E87.1 Hypo-osmolality and hyponatremia; Z86.19 Personal history of other infectious and parasitic diseases; Z86.16 Personal history of COVID-19; Z87.11 Personal history of peptic ulcer disease; Z87.19 Personal history of other diseases of the digestive system; Z98.890 Other specified postprocedural states; Z90.710 Acquired absence of both cervix and uterus; Z96.642 Presence of left artificial hip joint; Z80.52 Family history of malignant neoplasm of bladder; Z80.51 Family history of malignant neoplasm of kidney; Z80.41 Family history of malignant neoplasm of ovary; Z82.49 Family history of ischemic heart disease and other diseases of the circulatory system; Z79.82 Long term (current) use of aspirin; Z79.890 Hormone replacement therapy; Z79.51 Long term (current) use of inhaled steroids; Z79.899 Other long term (current) drug therapy; Z88.5 Allergy status to narcotic agent; Z88.8 Allergy status to other drugs, medicaments and biological substances; Z91.09 Other allergy status, other than to drugs and biological substances
CPT/HCPCS: 96374; 99285; 93005; 97161; 97165; 36573; 80053; 85025; 83970; G0378 ×2; C1751; C1769; S0109 ×3; J1170 ×2

== ENCOUNTER 2021-10-30 09:21 | Emergency (ER) | payer MEDICARE, OTHER ==
[2021-10-30 09:30] VITALS: BP 154/83; PULSE 93; RESP 18; TEMP 97.8
--- NOTE | 2021-10-30 09:52 | ED ---
General Adult HPI - General Chief complaint: Recheck/Abnormal Lab/Rx Stated complaint: Uncontrolled Pain Time Seen by Provider: 10/30/21 09:32 Source: patient, RN notes reviewed Mode of arrival: wheelchair Limitations: no limitations - History of Present Illness Initial comments: This a 76-year-old female presents emergency Department with chief complaint of chronic pain issues. Patient states that she's has pain all over. Patient is on methadone. She states she does not have her medication. Patient was hospitalized recently for PICC line replacement did receive methadone then. Patient states she is scheduled to get her new prescription tomorrow. Patient denies any new traumas appears or chills no increasing dyspnea. - Related Data Home Medications Medication Instructions Recorded Confirmed Ferrous Sulfate [Iron (65 MG 325 mg PO DAILY@1200 11/06/15 10/28/21 Elemental)] calcitrioL [Calcitriol] 1 mcg PO MOWEFR 06/07/19 10/28/21 busPIRone HCL [Buspar] 30 mg PO BID 04/14/20 10/28/21 Butalb/APAP/Caff 50-325-40Mg 1 tab PO Q6H PRN 06/30/20 10/28/21 [Fioricet 50-325-40] buPROPion XL [Wellbutrin XL] 300 mg PO DAILY 02/20/21 10/28/21 Albuterol Sulfate [Albuterol 2 puff INHALATION RT-Q6H PRN 04/07/21 10/28/21 Sulfate Hfa] Budesonide/Formoterol Fumarate 2 puff INHALATION RT-BID 04/07/21 10/28/21 [Symbicort 160-4.5 Mcg Inhaler] Aspirin EC [Ecotrin Low Dose] 81 mg PO DAILY 05/12/21 10/28/21 Furosemide [Lasix] 20 mg PO DAILY PRN 08/08/21 10/28/21 Omeprazole 20 mg PO DAILY 08/08/21 10/28/21 hydrOXYzine pamoate [Vistaril] 50 mg PO TID 08/08/21 10/28/21 polyethylene glycoL 3350 [Miralax] 17 gm PO DAILY PRN 08/08/21 10/28/21 Mirtazapine [Remeron] 45 mg PO HS 09/01/21 10/28/21 Ondansetron [Zofran] 4 mg PO Q6H PRN 09/01/21 10/28/21 Potassium Chloride ER [K-Dur 10] 30 meq PO DAILY PRN 10/08/21 10/28/21 buPROPion XL [Wellbutrin XL] 150 mg PO DAILY 10/08/21 10/28/21 Loratadine [Claritin] 10 mg PO DAILY 10/28/21 10/28/21 Previous Rx's Medication Instructions Recorded Levothyroxine Sodium [Synthroid] 100 mcg PO DAILY@0630 30 Days #30 06/19/21 tab Sodium Bicarbonate Tab 650 mg PO DAILY 30 Days #30 tab 08/21/21 Methadone [Dolophine] 20 mg PO BID tab 09/10/21 Acetaminophen Tab [Tylenol] 650 mg PO Q6HR PRN tab 10/29/21 HYDROcodone/APAP 7.5-325MG [[place] 1 tab PO Q6HR PRN 3 Days #12 tab 10/29/21 7.5-325] Allergies Allergy/AdvReac Type Severity Reaction Status Date / Time mold Allergy Itching Verified 10/30/21 09:30 denosumab [From Prolia] AdvReac SEVERE Verified 10/30/21 09:30 CALCIUM LOSS morphine AdvReac Confusion Verified 10/30/21 09:30 DUST Allergy Itching Uncoded 10/30/21 09:30 Review of Systems ROS Statement: Those systems with pertinent positive or pertinent negative responses have been documented in the HPI. ROS Other: All systems not noted in ROS Statement are negative. Past Medical History Past Medical History: Asthma, COPD, CVA/TIA, GERD/Reflux, Memory Impairment, Osteoarthritis (OA), Pneumonia, Renal Disease, Respiratory Disorder, Thyroid Disorder Additional Past Medical History / Comment(s): Aspiration, pneumonias, 1.2021 covid pneumonia, protein calorie malnutrition, pt was on TPN with PICC line managed thru [facility], chronic anemia, gastric ulcers/PUD, pancreatitis, bowel obstruction/surgery, constipation, CKD stage IV, TIA, chronic migraines, chronic back/cervical pain/spinal stenosis, hypothyroid, hyponatremia. DAILY TPN History of Any Multi-Drug Resistant Organisms: None Reported, Other MDRO Date of last positivie culture/infection: 2021 MDRO Source:: urine Past Surgical History: Back Surgery, Bowel Resection, Hysterectomy, Joint Replacement Additional Past Surgical History / Comment(s): LOWER BACK SURGERY lamenectomy/discetomy then had a revison of that sx. 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, nasal sx d/t broken nose, colonoscopy/egd, PAIN CLINIC PROCEDURES, PORT A CATH INSERTION, LT ADEOLA Past Anesthesia/Blood Transfusion Reactions: No Reported Reaction Additional Past Anesthesia/Blood Transfusion Reaction / Comment(s): PT RECEIVED BLOOD TRANSFUSIONS AFTER STOMACH SURGERY Past Psychological History: Anxiety, Depression, Panic Disorder Smoking Status: Never smoker Past Alcohol Use History: None Reported Past Drug Use History: None Reported - Past Family History Father Family Medical History: Cancer, Coronary Artery Disease (CAD) Additional Family Medical History / Comment(s): FATHER HAD BLADDER AND KIDNEY CANCER. FATHER HAD TB WHEN HE WAS A CHILD .FATHER AT AGE 87. Mother Family Medical History: Cancer Additional Family Medical History / Comment(s): MOTHER AT AGE 58 OF OVARIAN CANCER. General Exam Limitations: no limitations General appearance: alert, in no apparent distress Head exam: Present: atraumatic, normocephalic, normal inspection Neck exam: Present: normal inspection. Absent: tenderness, meningismus, lymphadenopathy Respiratory exam: Present: normal lung sounds bilaterally. Absent: respiratory distress, wheezes, rales, rhonchi, stridor Cardiovascular Exam: Present: regular rate, normal rhythm, normal heart sounds. Absent: systolic murmur, diastolic murmur, rubs, gallop, clicks Course Vital Signs 10/30/21 09:27 Temperature 97.8 F Pulse Rate 93 Respiratory 18 Rate Blood Pressure 154/83 O2 Sat by Pulse 98 Oximetry Medical Decision Making - Medical Decision Making Patient has had multiple ER visits of recent for down. She has multiple stories why she does not have her medications she did refill her prescription last week and picked up from pharmacy. Pharmacy was contacted. Patient has been in the ER he has received methadone doses. She should have plenty of doses but she admits to overuse her medication. I did inform that she'll not receive dose methadone and she is abusing her medications she is instructed to pick her prescription of tomorrow and take it as directed and not to overuse her medication. Disposition Clinical Impression: Chronic pain, Overuse of medication Disposition: HOME SELF-CARE Condition: Stable Instructions (If sedation given, give patient instructions): Chronic Pain (ED) Additional Instructions: Do not overuse medication. Please take medication as directed only.Please return to the Emergency Department if symptoms worsen or any other concerns. Is patient prescribed a controlled substance at d/c from ED?: No Referrals: Ale Eli MD [Primary Care Provider] - 1-2 days Time of Disposition: 09:52
== END 2021-10-30 10:03 | disposition home or self-care (01) ==
LOC: EC 09:21
DX: T40.3X1A Poisoning by methadone, accidental (unintentional), initial encounter (principal); G89.29 Other chronic pain; N18.4 Chronic kidney disease, stage 4 (severe); J44.9 Chronic obstructive pulmonary disease, unspecified; K21.9 Gastro-esophageal reflux disease without esophagitis; M19.90 Unspecified osteoarthritis, unspecified site; E03.9 Hypothyroidism, unspecified; F32.A Depression, unspecified; F41.9 Anxiety disorder, unspecified; Z79.51 Long term (current) use of inhaled steroids; Z79.82 Long term (current) use of aspirin; Z79.890 Hormone replacement therapy; Z79.899 Other long term (current) drug therapy
CPT/HCPCS: 99283

== ENCOUNTER 2021-11-06 10:40 | Emergency (ER) | payer MEDICARE, OTHER ==
[2021-11-06 10:53] VITALS: BP 164/88; PULSE 109; RESP 20; TEMP 97.4
[2021-11-06] MEDS ORDERED: SODIUM CHLORIDE 0.9% 500 ML 500 ML IV STA ×2 (11:10→12:51)
[2021-11-06] MEDS ORDERED: ONDANSETRON 4 MG/2 ML VIAL IVP STA (11:53)
--- NOTE | 2021-11-06 11:54 | ED ---
Female Urogenital HPI - General Chief complaint: Urogenital Stated complaint: unable to urinate, chills Time Seen by Provider: 11/06/21 10:56 Source: patient, RN notes reviewed Mode of arrival: ambulatory Limitations: no limitations - History of Present Illness Initial comments: This is a 76-year-old female who presents to the emergency department for an inability to urinate. Patient states that she did not have any urinary output yesterday and has associated chills. Also reports a lot of burning with urination. States that she has had nausea, vomiting, and diarrhea since yesterday and believes that she is dehydrated. Patient is well-known to this emergency department for chronic pain issues and repeatedly asks for pain medication. She is already treated with methadone and [place] at home. Denies any fevers, sore throat, cough, dyspnea, chest pain, palpitations, back pain, or headaches. MD Complaint: other (inability to urinate) Onset/Timin -: days(s) Patient : No Associated Symptoms: abdominal pain, nausea/vomiting, fever/chills - Related Data Home Medications Medication Instructions Recorded Confirmed Ferrous Sulfate [Iron (65 MG 325 mg PO DAILY@1200 11/06/15 10/28/21 Elemental)] calcitrioL [Calcitriol] 1 mcg PO MOWEFR 06/07/19 10/28/21 busPIRone HCL [Buspar] 30 mg PO BID 04/14/20 10/28/21 Butalb/APAP/Caff 50-325-40Mg 1 tab PO Q6H PRN 06/30/20 10/28/21 [Fioricet 50-325-40] buPROPion XL [Wellbutrin XL] 300 mg PO DAILY 02/20/21 10/28/21 Albuterol Sulfate [Albuterol 2 puff INHALATION RT-Q6H PRN 04/07/21 10/28/21 Sulfate Hfa] Budesonide/Formoterol Fumarate 2 puff INHALATION RT-BID 04/07/21 10/28/21 [Symbicort 160-4.5 Mcg Inhaler] Aspirin EC [Ecotrin Low Dose] 81 mg PO DAILY 05/12/21 10/28/21 Furosemide [Lasix] 20 mg PO DAILY PRN 08/08/21 10/28/21 Omeprazole 20 mg PO DAILY 08/08/21 10/28/21 hydrOXYzine pamoate [Vistaril] 50 mg PO TID 08/08/21 10/28/21 polyethylene glycoL 3350 [Miralax] 17 gm PO DAILY PRN 08/08/21 10/28/21 Mirtazapine [Remeron] 45 mg PO HS 09/01/21 10/28/21 Ondansetron [Zofran] 4 mg PO Q6H PRN 09/01/21 10/28/21 Potassium Chloride ER [K-Dur 10] 30 meq PO DAILY PRN 10/08/21 10/28/21 buPROPion XL [Wellbutrin XL] 150 mg PO DAILY 10/08/21 10/28/21 Loratadine [Claritin] 10 mg PO DAILY 10/28/21 10/28/21 Previous Rx's Medication Instructions Recorded Levothyroxine Sodium [Synthroid] 100 mcg PO DAILY@0630 30 Days #30 06/19/21 tab Sodium Bicarbonate Tab 650 mg PO DAILY 30 Days #30 tab 08/21/21 Methadone [Dolophine] 20 mg PO BID tab 09/10/21 Acetaminophen Tab [Tylenol] 650 mg PO Q6HR PRN tab 10/29/21 HYDROcodone/APAP 7.5-325MG [[place] 1 tab PO Q6HR PRN 3 Days #12 tab 10/29/21 7.5-325] Cephalexin [Keflex] 500 mg PO Q8HR 5 Days #15 cap 11/06/21 Ondansetron Odt [Zofran Odt] 4 mg PO Q8HR PRN #15 tab 11/06/21 Allergies Allergy/AdvReac Type Severity Reaction Status Date / Time mold Allergy Itching Verified 11/06/21 10:53 denosumab [From Prolia] AdvReac SEVERE Verified 11/06/21 10:53 CALCIUM LOSS morphine AdvReac Confusion Verified 11/06/21 10:53 DUST Allergy Itching Uncoded 11/06/21 10:53 Review of Systems ROS Statement: Those systems with pertinent positive or pertinent negative responses have been documented in the HPI. ROS Other: All systems not noted in ROS Statement are negative. Past Medical History Past Medical History: Asthma, COPD, CVA/TIA, GERD/Reflux, Memory Impairment, Osteoarthritis (OA), Pneumonia, Renal Disease, Respiratory Disorder, Thyroid Disorder Additional Past Medical History / Comment(s): Aspiration, pneumonias, 1.2021 covid pneumonia, protein calorie malnutrition, pt was on TPN with PICC line managed [facility], chronic anemia, gastric ulcers/PUD, pancreatitis, bowel obstruction/surgery, constipation, CKD stage IV, TIA, chronic migraines, chronic back/cervical pain/spinal stenosis, hypothyroid, hyponatremia. DAILY TPN History of Any Multi-Drug Resistant Organisms: None Reported, Other MDRO Date of last positivie culture/infection: 2021 MDRO Source:: urine Past Surgical History: Back Surgery, Bowel Resection, Hysterectomy, Joint Replacement Additional Past Surgical History / Comment(s): LOWER BACK SURGERY lamenectomy/discetomy then had a revison of that sx. 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, nasal sx d/t broken nose, colonoscopy/egd, PAIN CLINIC PROCEDURES, PORT A CATH I NSERTION, LT ADEOLA Past Anesthesia/Blood Transfusion Reactions: No Reported Reaction Additional Past Anesthesia/Blood Transfusion Reaction / Comment(s): PT RECEIVED BLOOD TRANSFUSIONS AFTER STOMACH SURGERY Past Psychological History: Anxiety, Depression, Panic Disorder Smoking Status: Never smoker Past Alcohol Use History: None Reported Past Drug Use History: None Reported - Past Family History Father Family Medical History: Cancer, Coronary Artery Disease (CAD) Additional Family Medical History / Comment(s): FATHER HAD BLADDER AND KIDNEY CANCER. FATHER HAD TB WHEN HE WAS A CHILD .FATHER AT AGE 87. Mother Family Medical History: Cancer Additional Family Medical History / Comment(s): MOTHER AT AGE 58 OF OVARIAN CANCER. General Exam Limitations: no limitations General appearance: alert, in distress Respiratory exam: Present: normal lung sounds bilaterally. Absent: respiratory distress, wheezes, rales, rhonchi, stridor Cardiovascular Exam: Present: regular rate, normal rhythm, normal heart sounds. Absent: systolic murmur, diastolic murmur, rubs, gallop, clicks GI/Abdominal exam: Present: soft, hypoactive bowel sounds. Absent: distended, guarding, rebound, rigid Neurological exam: Present: alert, oriented X3, CN II-XII intact Psychiatric exam: Present: normal affect, normal mood Skin exam: Present: warm, dry, intact, normal color. Absent: rash Course Vital Signs 11/06/21 10:51 Temperature 97.4 F L Pulse Rate 109 H Respiratory 20 Rate Blood Pressure 164/88 O2 Sat by Pulse 99 Oximetry Medical Decision Making - Medical Decision Making This is a 76-year-old female who presents to the emergency department with an inability to urinate. Lab work was nonactionable. Bladder scan revealed 25-50 mL of urine. She was rehydrated with a liter of normal saline. Afterwards, she was able to urinate. Ultrasound of the kidneys, ureters, and bladder was suggestive of a cystitis. UA reveals a mild UTI. Patient given a dose of ceftriaxone in the emergency department. Prescription for Keflex and Zofran and sent to the pharmacy. Advised she purchase OTC AZO for dysuria with the understanding that this will turn the urine orange. She was given Benadryl and Atarax for anxiety. She had been demanding Xanax, which I was not willing to provide, as she chronically seeks pain medication and other controlled substances. She was also given a list of local rehab facilities. We discussed the need to come off of her multiple pain medications in order to reset her pain receptors and offer pain relief in the future. Her pain receptors are depleted at this point, and other than heavy narcotics, there is not a way to successfully treat her pain. Return precautions reviewed in depth, the patient is instructed to return to the emergency department with any new, worsening, or concerning symptoms. Patient verbalized understanding. This case was discussed in detail with the attending ED physician. Presentation, findings, and treatment plan discussed in detail as well. - Lab Data Result diagrams: 11/06/21 11:16 11/06/21 11:16 Lab Results 11/06/21 11/06/21 11/06/21 Range/Units 11:16 11:16 11:16 WBC 10.1 (3.8-10.6) k/uL RBC 4.25 (3.80-5.40) m/uL Hgb 11.9 (11.4-16.0) gm/dL Hct 39.8 (34.0-46.0) % MCV 93.7 (80.0-100.0) fL MCH 28.1 (25.0-35.0) pg MCHC 30.0 L (31.0-37.0) g/dL RDW 17.8 H (11.5-15.5) % Plt Count 440 (150-450) k/uL MPV 7.6 Neutrophils % 88 % Lymphocytes % 7 % Monocytes % 3 % Eosinophils % 1 % Basophils % 0 % Neutrophils # 8.9 H (1.3-7.7) k/uL Lymphocytes # 0.7 L (1.0-4.8) k/uL Monocytes # 0.3 (0-1.0) k/uL Eosinophils # 0.1 (0-0.7) k/uL Basophils # 0.0 (0-0.2) k/uL Hypochromasia Marked Anisocytosis Slight Sodium 138 (137-145) mmol/L Potassium 3.6 (3.5-5.1) mmol/L Chloride 105 (98-107) mmol/L Carbon Dioxide 23 (22-30) mmol/L Anion Gap 10 mmol/L BUN 16 (7-17) mg/dL Creatinine 1.21 H (0.52-1.04) mg/dL Est GFR (CKD-EPI)AfAm 51 (>60 ml/min/1.73 sqM) Est GFR (CKD-EPI)NonAf 44 (>60 ml/min/1.73 sqM) Glucose 104 H (74-99) mg/dL Calcium 8.8 (8.4-10.2) mg/dL Total Bilirubin 0.3 (0.2-1.3) mg/dL AST 34 (14-36) U/L ALT 19 (4-34) U/L Alkaline Phosphatase 247 H (38-126) U/L Total Protein 6.7 (6.3-8.2) g/dL Albumin 3.6 (3.5-5.0) g/dL Amylase 72 (30-110) U/L Lipase 91 (23-300) U/L Urine Color Yellow Urine Appearance Clear (Clear) Urine pH 6.0 (5.0-8.0) Ur Specific [place] 1.032 (1.001-1.035) Urine Protein 2+ H (Negative) Urine Glucose (UA) Negative (Negative) Urine Ketones Negative (Negative) Urine Blood Trace H (Negative) Urine Nitrite Negative (Negative) Urine Bilirubin Negative (Negative) Urine Urobilinogen <2.0 (<2.0) mg/dL Ur Leukocyte Esterase Moderate H (Negative) Urine RBC 2 (0-5) /hpf Urine WBC 48 H (0-5) /hpf Ur Squamous Epith Cells 1 (0-4) /hpf - Radiology Data Radiology results: report reviewed, image reviewed Disposition Clinical Impression: Urinary tract infection Disposition: HOME SELF-CARE Instructions (If sedation given, give patient instructions): Urinary Tract Infection in Women (ED) Additional Instructions: Return to the emergency department with any new, worsening, or concerning symptoms. Take the Keflex as prescribed for 5 days. You may purchase [id number] AZO to help with burning with urination. Be advised that this will turn your urine orange. You may take the Zofran up to every 8 hours as needed for nausea and vomiting. Contact one of the rehab facilities listed on the paperwork to help with withdrawing from pain medication, which will help your pain and overall health status in the long run. Follow up with your primary care provider in 1-2 days. Prescriptions: Cephalexin [Keflex] 500 mg PO Q8HR 5 Days #15 cap Ondansetron Odt [Zofran Odt] 4 mg PO Q8HR PRN #15 tab PRN Reason: Nausea And Vomiting Is patient prescribed a controlled substance at d/c from ED?: No Referrals: Ale Eli MD [Primary Care Provider] - 1-2 days
[2021-11-06 12:09] LABS: Albumin 3.6 g/dL (3.5-5.0); Calcium 8.8 mg/dL (8.4-10.2); Potassium 3.6 mmol/L (3.5-5.1); Total Bilirubin 0.3 mg/dL (0.2-1.3); Total Protein 6.7 g/dL (6.3-8.2)
[2021-11-06 12:10] LABS: Anisocytosis Slight; Basophils % (A) 0 %; Eosinophils # (A) 0.1 k/uL (0-0.7); Eosinophils % (A) 1 %; HCT 39.8 % (34.0-46.0); HGB 11.9 gm/dL (11.4-16.0); Hypochromasia Marked; Lymphocytes # (A) 0.7 k/uL (1.0-4.8); Lymphocytes % (A) 7 %; MCH 28.1 pg (25.0-35.0); MCV 93.7 fL (80.0-100.0); Mean Platelet Volume 7.6; Monocytes # (A) 0.3 k/uL (0-1.0); Monocytes % (A) 3 %; Neutrophils # (A) 8.9 k/uL (1.3-7.7); Neutrophils % (A) 88 %; Platelet Count 440 k/uL (150-450); RBC 4.25 m/uL (3.80-5.40); RDW 17.8 % (11.5-15.5); WBC 10.1 k/uL (3.8-10.6)
--- NOTE | 2021-11-06 12:48 | US ---
EXAMINATION TYPE: US kidneys/renal and bladder DATE OF EXAM: 11/06/2021 COMPARISON: US 09/04/21 CLINICAL HISTORY: Inability to urinate. Inability to urinate, severe abd pain Limited due to patient not cooperating. EXAM MEASUREMENTS: Right Kidney: 9.7 x 3.1 x 4.2 cm Left Kidney: 7.3 x 3.3 x 3.2 cm Right Kidney: No hydronephrosis or masses seen Left Kidney: No hydronephrosis or masses seen Bladder: Anterior wall measuring 1.1 cm, but bladder was not distended. Bilateral Jets seen: No IMPRESSION: Bladder is nondistended with the bladder wall anteriorly measures 1.1 cm. Correlate for cystitis. Muc osal lesion is not excluded.
[2021-11-06] MEDS ORDERED: KETOROLAC 15 MG/ML 1 ML VIAL IVP STA ×2 (13:07→14:16)
[2021-11-06] MEDS ORDERED: diphenhydrAMINE 50 MG/ML 1 ML VIAL IVP STA (13:09)
[2021-11-06 14:05] LABS: Appearance,Urine Clear (Clear); Bilirubin,Urine Negative (Negative); Blood,Urine Trace (Negative); Color,Urine Yellow; Glucose,Urine (UA) Negative (Negative); Ketones,Urine Negative (Negative); Leukocyte Esterase,Urine Moderate (Negative); Nitrite,Urine Negative (Negative); Protein,Urine 2+ (Negative); RBC,Urine 2 /hpf (0-5); Specific Gravity,Urine 1.032 (1.001-1.035); Squamous Epithelial Cell,Urine 1 /hpf (0-4); Urobilinogen,Urine <2.0 mg/dL (<2.0); WBC,Urine 48 /hpf (0-5)
[2021-11-06] MEDS ORDERED: cefTRIAXone IN SWFI 1,000 MG/10 ML SYRINGE IVP STA (14:10)
[2021-11-06] MEDS ORDERED: ONDANSETRON 4 MG ODT STARTER PACK 2 TAB BTL PO STA (14:13)
[2021-11-06] MEDS ORDERED: hydrOXYzine HCL 25 MG TAB PO STA (14:16)
== END 2021-11-06 14:53 | disposition home or self-care (01) ==
LOC: EC 10:40
DX: N39.0 Urinary tract infection, site not specified (principal); J44.9 Chronic obstructive pulmonary disease, unspecified; K21.9 Gastro-esophageal reflux disease without esophagitis; M19.90 Unspecified osteoarthritis, unspecified site; Z86.16 Personal history of COVID-19; Z79.899 Other long term (current) drug therapy; Z88.8 Allergy status to other drugs, medicaments and biological substances; Z88.5 Allergy status to narcotic agent; Z91.09 Other allergy status, other than to drugs and biological substances; Z79.82 Long term (current) use of aspirin; Z79.890 Hormone replacement therapy
CPT/HCPCS: 51798; 36415; 80053; 82150; 83690; 85025; 81001; 87086; 76770; 99284; 96374; 96375; 96376; J1200; J2405; J0696; J1885; S0119

== ENCOUNTER 2021-11-17 12:46 | Inpatient (IN) | payer MEDICARE, OTHER ==
[2021-11-17] MEDS ORDERED: SODIUM CHLORIDE 0.9% 1,000 ML IV STA (13:05)
[2021-11-17] MEDS ORDERED: BUTALB/APAP/CAFF 50-325-40MG TAB PO STA (13:05)
--- NOTE | 2021-11-17 13:28 | ED ---
SOB HPI - General Chief Complaint: Shortness of Breath Stated Complaint: dehydration, poss pneumonia Time Seen by Provider: 11/17/21 12:50 Source: patient Mode of arrival: wheelchair Limitations: no limitations - History of Present Illness Initial Comments: 76-year-old female female with past history of chronic pain, CVA, asthma presents to the emergency department for dehydration and possible pneumonia. States that she's been weak, coughing, having fevers. She called Dr. Wilson's office on saying that she was short of breath with recommended that she come into the emergency department for evaluation. States that she couldn't get a ride. Has a decreased appetite. Admits to nausea, vomiting and diarrhea. Also has a headache. States she can't hold down her dose of methadone. No chest pain. No home O2 use. No other alleviating, precipitating or modifying factors - Related Data Home Medications Medication Instructions Recorded Confirmed Ferrous Sulfate [Iron (65 MG 325 mg PO DAILY@1200 11/06/15 11/17/21 Elemental)] calcitrioL [Calcitriol] 1 mcg PO MOWEFR 06/07/19 11/17/21 busPIRone HCL [Buspar] 30 mg PO BID 04/14/20 11/17/21 Butalb/APAP/Caff 50-325-40Mg 1 tab PO Q6H PRN 06/30/20 11/17/21 [Fioricet 50-325-40] Albuterol Sulfate [Albuterol 2 puff INHALATION RT-Q6H PRN 04/07/21 11/17/21 Sulfate Hfa] Budesonide/Formoterol Fumarate 2 puff INHALATION RT-BID 04/07/21 11/17/21 [Symbicort 160-4.5 Mcg Inhaler] Aspirin EC [Ecotrin Low Dose] 81 mg PO DAILY 05/12/21 11/17/21 Furosemide [Lasix] 20 mg PO DAILY PRN 08/08/21 11/17/21 Omeprazole 20 mg PO DAILY 08/08/21 11/17/21 hydrOXYzine pamoate [Vistaril] 50 mg PO TID 08/08/21 11/17/21 polyethylene glycoL 3350 [Miralax] 17 gm PO DAILY PRN 08/08/21 11/17/21 Mirtazapine [Remeron] 45 mg PO HS 09/01/21 11/17/21 Ondansetron [Zofran] 4 mg PO Q6H PRN 09/01/21 11/17/21 Potassium Chloride ER [K-Dur 10] 30 meq PO DAILY PRN 10/08/21 11/17/21 buPROPion XL [Wellbutrin XL] 300 mg PO DAILY 10/08/21 11/17/21 Loratadine [Claritin] 10 mg PO DAILY 10/28/21 11/17/21 PARoxetine [Paxil] 10 mg PO DAILY 11/17/21 11/17/21 Previous Rx's Medication Instructions Recorded Levothyroxine Sodium [Synthroid] 100 mcg PO DAILY@0630 30 Days #30 06/19/21 tab Sodium Bicarbonate Tab 650 mg PO DAILY 30 Days #30 tab 08/21/21 Methadone [Dolophine] 20 mg PO BID tab 09/10/21 Acetaminophen Tab [Tylenol] 650 mg PO Q6HR PRN tab 10/29/21 Ondansetron Odt [Zofran Odt] 4 mg PO Q8HR PRN #15 tab 11/06/21 Allergies Allergy/AdvReac Type Severity Reaction Status Date / Time mold Allergy Itching Verified 11/17/21 15:42 denosumab [From Prolia] AdvReac SEVERE Verified 11/17/21 15:42 CALCIUM LOSS morphine AdvReac Confusion Verified 11/17/21 15:42 DUST Allergy Itching Uncoded 11/17/21 15:42 Review of Systems ROS Statement: Those systems with pertinent positive or pertinent negative responses have been documented in the HPI. ROS Other: All systems not noted in ROS Statement are negative. Past Medical History Past Medical History: Asthma, COPD, CVA/TIA, GERD/Reflux, Memory Impairment, Osteoarthritis (OA), Pneumonia, Renal Disease, Respiratory Disorder, Thyroid Disorder Additional Past Medical History / Comment(s): Aspiration, pneumonias, .2021 covid pneumonia, protein calorie malnutrition, pt was on TPN with PICC line managed thru [facility], chronic anemia, gastric ulcers/PUD, pancreatitis, bowel obstruction/surgery, constipation, CKD stage IV, TIA, chronic migraines, chronic back/cervical pain/spinal stenosis, hypothyroid, hyponatremia. DAILY TPN History of Any Multi-Drug Resistant Organisms: None Reported, Other MDRO Date of last positivie culture/infection: 2021 MDRO Source:: urine Past Surgical History: Back Surgery, Bowel Resection, Hysterectomy, Joint Replacement Additional Past Surgical History / Comment(s): LOWER BACK SURGERY lamenectomy/discetomy then had a revison of that sx. 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, nasal sx d/t broken nose, colonoscopy/egd, PAIN CLINIC PROCEDURES, PORT A CATH INSERTION, LT ADEOLA Past Anesthesia/Blood Transfusion Reactions: No Reported Reaction Additional Past Anesthesia/Blood Transfusion Reaction / Comment(s): PT RECEIVED BLOOD TRANSFUSIONS AFTER STOMACH SURGERY Past Psychological History: Anxiety, Depression, Panic Disorder Smoking Status: Never smoker Past Alcohol Use History: None Reported Past Drug Use History: None Reported - Past Family History Father Family Medical History: Cancer, Coronary Artery Disease (CAD) Additional Family Medical History / Comment(s): FATHER HAD BLADDER AND KIDNEY CANCER. FATHER HAD TB WHEN HE WAS A CHILD .FATHER AT AGE 87. Mother Family Medical History: Cancer Additional Family Medical History / Comment(s): MOTHER AT AGE 58 OF OVARIAN CANCER. General Exam Limitations: no limitations General appearance: alert, in no apparent distress Head exam: Present: atraumatic, normocephalic, normal inspection Eye exam: Present: normal appearance, PERRL, EOMI. Absent: scleral icterus, conjunctival injection, periorbital swelling ENT exam: Present: normal exam, mucous membranes moist Neck exam: Present: normal inspection. Absent: tenderness, meningismus, lymphadenopathy Respiratory exam: Present: wheezes. Absent: respiratory distress, rales, rhonchi, stridor Cardiovascular Exam: Present: regular rate, normal rhythm, normal heart sounds. Absent: systolic murmur, diastolic murmur, rubs, gallop, clicks GI/Abdominal exam: Present: soft, normal bowel sounds. Absent: distended, tenderness, guarding, rebound, rigid Extremities exam: Present: normal inspection, full ROM, normal capillary refill. Absent: tenderness, pedal edema, joint swelling, calf tenderness Back exam: Present: normal inspection Neurological exam: Present: alert, oriented X3, CN II-XII intact Psychiatric exam: Present: normal affect, normal mood Skin exam: Present: warm, dry, intact, normal color. Absent: rash Course Vital Signs 11/17/21 11/17/21 11/17/21 12:47 13:21 15:30 Temperature 97.9 F Pulse Rate 111 H 101 H 98 Respiratory 18 18 18 Rate Blood Pressure 157/96 169/106 O2 Sat by Pulse 96 98 100 Oximetry 11/17/21 16:13 Temperature 97.8 F Pulse Rate 96 Respiratory 18 Rate Blood Pressure 165/91 O2 Sat by Pulse 100 Oximetry Medical Decision Making - Medical Decision Making Arrival patient was placed into room 5. Thorough history and physical exam is performed. IV access established. Patient was given a liter bolus of normal saline followed by 130 mL/h. Laboratory studies are conducted which reveal white count of 15.6. Chest x-ray demonstrates worsening pneumonia of the left lower lobe. As the patient has been previously treated for pneumonia I did recommend inpatient admission. Blood cultures obtained and patient initiated on Zosyn and azithromycin. Patient was agreeable to treatment plan. Spoke with Dr. santana who will admit the patient for Dr. Desir. - Lab Data Result diagrams: 11/23/21 08:00 11/23/21 16:16 Lab Results 11/17/21 11/17/21 11/17/21 Range/Units 13:24 13:24 13:24 WBC 15.6 H (3.8-10.6) k/uL RBC 4.09 (3.80-5.40) m/uL Hgb 11.0 L (11.4-16.0) gm/dL Hct 36.3 (34.0-46.0) % MCV 88.9 (80.0-100.0) fL MCH 26.8 (25.0-35.0) pg MCHC 30.2 L (31.0-37.0) g/dL RDW 16.7 H (11.5-15.5) % Plt Count 425 (150-450) k/uL MPV 6.9 Neutrophils % 87 % Lymphocytes % 6 % Monocytes % 4 % Eosinophils % 2 % Basophils % 0 % Neutrophils # 13.7 H (1.3-7.7) k/uL Lymphocytes # 0.9 L (1.0-4.8) k/uL Monocytes # 0.6 (0-1.0) k/uL Eosinophils # 0.3 (0-0.7) k/uL Basophils # 0.0 (0-0.2) k/uL Hypochromasia Moderate Anisocytosis Slight PT 10.2 (9.0-12.0) sec INR 0.9 (<1.2) APTT 26.6 (22.0-30.0) sec Sodium 140 (137-145) mmol/L Potassium 4.2 (3.5-5.1) mmol/L Chloride 105 (98-107) mmol/L Carbon Dioxide 27 (22-30) mmol/L Anion Gap 8 mmol/L BUN 20 H (7-17) mg/dL Creatinine 1.27 H (0.52-1.04) mg/dL Est GFR (CKD-EPI)AfAm 48 (>60 ml/min/1.73 sqM) Est GFR (CKD-EPI)NonAf 42 (>60 ml/min/1.73 sqM) Glucose 96 (74-99) mg/dL Plasma Lactic Acid Jonah (0.7-2.0) mmol/L Calcium 8.6 (8.4-10.2) mg/dL Magnesium 1.5 L (1.6-2.3) mg/dL Total Bilirubin 0.3 (0.2-1.3) mg/dL AST 18 (14-36) U/L ALT 10 (4-34) U/L Alkaline Phosphatase 236 H (38-126) U/L Troponin I (0.000-0.034) ng/mL NT-Pro-B Natriuret Pep pg/mL Total Protein 6.8 (6.3-8.2) g/dL Albumin 3.5 (3.5-5.0) g/dL Urine Color Urine Appearance (Clear) Urine pH (5.0-8.0) Ur Specific [place] (1.001-1.035) Urine Protein (Negative) Urine Glucose (UA) (Negative) Urine Ketones (Negative) Urine Blood (Negative) Urine Nitrite (Negative) Urine Bilirubin (Negative) Urine Urobilinogen (<2.0) mg/dL Ur Leukocyte Esterase (Negative) Urine RBC (0-5) /hpf Urine WBC (0-5) /hpf Ur Squamous Epith Cells (0-4) /hpf Hyaline Casts (0-2) /lpf Urine Yeast (Budding) (None) /hpf Coronavirus (PCR) (Not Detectd) Influenza Type A RNA (Not Detectd) Influenza Type B (PCR) (Not Detectd) 11/17/21 11/17/21 11/17/21 Range/Units 13:24 13:24 13:24 WBC (3.8-10.6) k/uL RBC (3.80-5.40) m/uL Hgb (11.4-16.0) gm/dL Hct (34.0-46.0) % MCV (80.0-100.0) fL MCH (25.0-35.0) pg MCHC (31.0-37.0) g/dL RDW (11.5-15.5) % Plt Count (150-450) k/uL MPV Neutrophils % % Lymphocytes % % Monocytes % % Eosinophils % % Basophils % % Neutrophils # (1.3-7.7) k/uL Lymphocytes # (1.0-4.8) k/uL Monocytes # (0-1.0) k/uL Eosinophils # (0-0.7) k/uL Basophils # (0-0.2) k/uL Hypochromasia Anisocytosis PT (9.0-12.0) sec INR (<1.2) APTT (22.0-30.0) sec Sodium (137-145) mmol/L Potassium (3.5-5.1) mmol/L Chloride (98-107) mmol/L Carbon Dioxide (22-30) mmol/L Anion Gap mmol/L BUN (7-17) mg/dL Creatinine (0.52-1.04) mg/dL Est GFR (CKD-EPI)AfAm (>60 ml/min/1.73 sqM) Est GFR (CKD-EPI)NonAf (>60 ml/min/1.73 sqM) Glucose (74-99) mg/dL Plasma Lactic Acid Jonha 0.8 (0.7-2.0) mmol/L Calcium (8.4-10.2) mg/dL Magnesium (1.6-2.3) mg/dL Total Bilirubin (0.2-1.3) mg/dL AST (14-36) U/L ALT (4-34) U/L Alkaline Phosphatase (38-126) U/L Troponin I <0.012 (0.000-0.034) ng/mL NT-Pro-B Natriuret Pep 867 pg/mL Total Protein (6.3-8.2) g/dL Albumin (3.5-5.0) g/dL Urine Color Urine Appearance (Clear) Urine pH (5.0-8.0) Ur Specific [place] (1.001-1.035) Urine Protein (Negative) Urine Glucose (UA) (Negative) Urine Ketones (Negative) Urine Blood (Negative) Urine Nitrite (Negative) Urine Bilirubin (Negative) Urine Urobilinogen (<2.0) mg/dL Ur Leukocyte Esterase (Negative) Urine RBC (0-5) /hpf Urine WBC (0-5) /hpf Ur Squamous Epith Cells (0-4) /hpf Hyaline Casts (0-2) /lpf Urine Yeast (Budding) (None) /hpf Coronavirus (PCR) (Not Detectd) Influenza Type A RNA (Not Detectd) Influenza Type B (PCR) (Not Detectd) 11/17/21 11/17/21 11/17/21 Range/Units 13:24 13:24 13:36 WBC (3.8-10.6) k/uL RBC (3.80-5.40) m/uL Hgb (11.4-16.0) gm/dL Hct (34.0-46.0) % MCV (80.0-100.0) fL MCH (25.0-35.0) pg MCHC (31.0-37.0) g/dL RDW (11.5-15.5) % Plt Count (150-450) k/uL MPV Neutrophils % % Lymphocytes % % Monocytes % % Eosinophils % % Basophils % % Neutrophils # (1.3-7.7) k/uL Lymphocytes # (1.0-4.8) k/uL Monocytes # (0-1.0) k/uL Eosinophils # (0-0.7) k/uL Basophils # (0-0.2) k/uL Hypochromasia Anisocytosis PT (9.0-12.0) sec INR (<1.2) APTT (22.0-30.0) sec Sodium (137-145) mmol/L Potassium (3.5-5.1) mmol/L Chloride (98-107) mmol/L Carbon Dioxide (22-30) mmol/L Anion Gap mmol/L BUN (7-17) mg/dL Creatinine (0.52-1.04) mg/dL Est GFR (CKD-EPI)AfAm (>60 ml/min/1.73 sqM) Est GFR (CKD-EPI)NonAf (>60 ml/min/1.73 sqM) Glucose (74-99) mg/dL Plasma Lactic Acid Jonah (0.7-2.0) mmol/L Calcium (8.4-10.2) mg/dL Magnesium (1.6-2.3) mg/dL Total Bilirubin (0.2-1.3) mg/dL AST (14-36) U/L ALT (4-34) U/L Alkaline Phosphatase (38-126) U/L Troponin I (0.000-0.034) ng/mL NT-Pro-B Natriuret Pep pg/mL Total Protein (6.3-8.2) g/dL Albumin (3.5-5.0) g/dL Urine Color Yellow Urine Appearance Clear (Clear) Urine pH 6.5 (5.0-8.0) Ur Specific [place] 1.020 (1.001-1.035) Urine Protein 2+ H (Negative) Urine Glucose (UA) Negative (Negative) Urine Ketones Negative (Negative) Urine Blood Trace H (Negative) Urine Nitrite Negative (Negative) Urine Bilirubin Negative (Negative) Urine Urobilinogen <2.0 (<2.0) mg/dL Ur Leukocyte Esterase Small H (Negative) Urine RBC <1 (0-5) /hpf Urine WBC 7 H (0-5) /hpf Ur Squamous Epith Cells 4 (0-4) /hpf Hyaline Casts 1 (0-2) /lpf Urine Yeast (Budding) Rare H (None) /hpf Coronavirus (PCR) Not Detected (Not Detectd) Influenza Type A RNA Not Detected (Not Detectd) Influenza Type B (PCR) Not Detected (Not Detectd) - EKG Data EKG Comments: EKG demonstrates sinus rhythm with rate of 97. ME interval of 121. QRS 81. Qtc of 397. No acute ST segment elevations or depressions Disposition Clinical Impression: Acute respiratory insufficiency, Pneumonia, COPD (chronic obstructive pulmonary disease) Disposition: ADMITTED IP TO THIS HOSP Condition: Stable Is patient prescribed a controlled substance at d/c from ED?: No Time of Disposition: 15:23 Decision to Admit Reason: Admit from EC Decision Date: 11/17/21 Decision Time: 15:23
[2021-11-17 13:51] LABS: Anisocytosis Slight; Basophils % (A) 0 %; Eosinophils # (A) 0.3 k/uL (0-0.7); Eosinophils % (A) 2 %; HCT 36.3 % (34.0-46.0); Hypochromasia Moderate; Lymphocytes # (A) 0.9 k/uL (1.0-4.8); Lymphocytes % (A) 6 %; MCH 26.8 pg (25.0-35.0); MCHC 30.2 g/dL (31.0-37.0); MCV 88.9 fL (80.0-100.0); Mean Platelet Volume 6.9; Monocytes # (A) 0.6 k/uL (0-1.0); Monocytes % (A) 4 %; Neutrophils # (A) 13.7 k/uL (1.3-7.7); Neutrophils % (A) 87 %; Platelet Count 425 k/uL (150-450); RBC 4.09 m/uL (3.80-5.40); RDW 16.7 % (11.5-15.5); WBC 15.6 k/uL (3.8-10.6)
[2021-11-17 14:02] LABS: Albumin 3.5 g/dL (3.5-5.0); Calcium 8.6 mg/dL (8.4-10.2); Magnesium 1.5 mg/dL (1.6-2.3); Potassium 4.2 mmol/L (3.5-5.1); Total Bilirubin 0.3 mg/dL (0.2-1.3); Total Protein 6.8 g/dL (6.3-8.2)
[2021-11-17 14:05] LABS: INR 0.9 (<1.2); Partial Thromboplastin Time 26.6 sec (22.0-30.0); Prothrombin Time 10.2 sec (9.0-12.0)
--- NOTE | 2021-11-17 14:06 | XR ---
EXAMINATION TYPE: XR chest 2V DATE OF EXAM: 11/17/2021 COMPARISON: 10/22/2021 INDICATION: Of the breathing TECHNIQUE: Frontal and lateral views of the chest are obtained. FINDINGS: The heart size is normal. The pulmonary vasculature is normal. Worsening patchy infiltrates through the left mid and lower lung field. The right perihilar infiltrat e may be somewhat improved over the interval. PICC line enters on the left with the tip in the superior vena cava region.. IMPRESSION: 1. Worsening left perihilar and lower lobe infiltrate. Follow-up is recommended. 2. There may be some improvement of the right perihilar increased lung markings.
[2021-11-17 14:08] LABS: Appearance,Urine Clear (Clear); Bilirubin,Urine Negative (Negative); Blood,Urine Trace (Negative); Budding Yeast,Urine Rare /hpf; Color,Urine Yellow; Glucose,Urine (UA) Negative (Negative); Hyaline Casts,Urine 1 /lpf (0-2); Ketones,Urine Negative (Negative); Leukocyte Esterase,Urine Small (Negative); Nitrite,Urine Negative (Negative); PH, Urine 6.5 (5.0-8.0); Protein,Urine 2+ (Negative); RBC,Urine <1 /hpf (0-5); Squamous Epithelial Cell,Urine 4 /hpf (0-4); Urobilinogen,Urine <2.0 mg/dL (<2.0); WBC,Urine 7 /hpf (0-5)
[2021-11-17] MEDS ORDERED: PIPERACILLIN-TAZOBACTAM 3.375 GM in SODIUM CHLORIDE 0.9% 100 ML IVPB STA (15:17)
[2021-11-17] MEDS ORDERED: PNEUMONIA PROTOCOL UTILIZED 1 EACH MISC PO PRN (15:17)
[2021-11-17] MEDS ORDERED: ACETAMINOPHEN TAB 325 MG TAB PO PRN (16:05)
[2021-11-17] MEDS ORDERED: polyethylene glycoL 3350 17 GM POWD.PACK PO PRN (16:05)
[2021-11-17] MEDS ORDERED: ALBUTEROL NEBULIZED 2.5 MG/3 ML INHALATION PRN (16:05)
[2021-11-17] MEDS: SODIUM CHLORIDE 0.9% 1,000 ML IV SCH (16:17)
[2021-11-17] MEDS: METHADONE 10 MG TAB PO SCH ×2 (16:21→21:48)
[2021-11-17] MEDS ORDERED: IPRATROPIUM-ALBUTEROL 3 ML NEB INHALATION PRN (16:46)
--- NOTE | 2021-11-17 17:05 | HP ---
HISTORY AND PHYSICAL CHIEF COMPLAINTS: Shortness of breath, cough and sputum. HISTORY OF PRESENT ILLNESS: This 76-year-old woman with a past medical history of COPD, GERD and multiple complex medical issues was not feeling well over the past several days. Patient had increasing cough, shortness of breath and sputum also. The patient came to [facility]. Patient was found to have bilateral pneumonia. Patient was admitted for further evaluation and treatment. There is no history of any fever, rigor or chills at this time. COVID-19 is negative. PAST MEDICAL HISTORY: Reviewed and includes asthma, COPD. HOME MEDICATIONS: Again reviewed and include albuterol. Doses and the rest of the medications are reviewed. ALLERGIES: ALLERGIES are reviewed and INCLUDE MOLD. FAMILY HISTORY: History of CAD. SOCIAL HISTORY: The patient lives alone. No history of smoking. REVIEW OF SYSTEMS: Fourteen-point review of systems negative except as mentioned earlier. PHYSICAL EXAMINATION: Pulse is 98, blood pressure 116/106, respiration 18. HEENT: Conjunctivae normal. NECK: No jugular venous distention. CARDIOVASCULAR: S1, S2 muffled. RESPIRATION: Breathing efforts are markedly increased. Bilateral scattered rhonchi and expiratory wheezing and crackles present. ABDOMEN: Soft, nontender. LEGS: No edema. No swelling. NERVOUS SYSTEM: Diffusely weak. SKIN: No ulcer, rash, bleeding. JOINTS: No active deforming arthropathy. LYMPHATICS: No lymph node palpable in neck, axillae or groin. LABS: WBC 15.6. Rest of the labs noted. Chest x-ray reviewed personally. ASSESSMENT: 1. Chronic obstructive pulmonary disease, acute exacerbation, with acute bilateral pneumonia, possibly Gram-negative. 2. History of asthma, chronic obstructive pulmonary disease. 3. History of cerebrovascular accident. 4. History of degenerative joint disease. 5. History of hypothyroidism. 6. History of aspiration pneumonia. 7. History of COVID pneumonia. RECOMMENDATIONS AND DISCUSSION: In this 76-year-old woman who presented with multiple complex medical issues, we will monitor the patient closely. Will initiate intensive bronchodilator treatment, IV steroids and empiric antibiotics. Pulmonology will be consulted. Home medications will be resumed. DVT prophylaxis. The prognosis is guarded because of multiple complex medical issues. Further recommendations to follow. See orders for details. Dr. Desir will follow tomorrow. MMODL / IJN: [id number] /
[2021-11-17] MEDS: methylPREDNISolone SOD SUCCI 125 MG/2 ML VIAL IV SCH (17:29)
[2021-11-17] MEDS: ONDANSETRON ODT 4 MG TAB PO PRN (18:50)
[2021-11-17] MEDS: SYMBICORT 160-4.5 MCG INHALER INHALATION SCH (19:28)
[2021-11-17] MEDS: IPRATROPIUM-ALBUTEROL 3 ML NEB INHALATION SCH (19:28)
[2021-11-17] MEDS: HYDROmorphone 0.5 MG/0.5 ML SYRINGE IVP PRN (19:47)
[2021-11-17] MEDS: hydrOXYzine pamoate 25 MG CAP PO SCH (21:47)
[2021-11-17] MEDS: HEPARIN SODIUM,PORCINE/PF 5,000 UNIT/0.5 ML SYRINGE SQ SCH (21:48)
[2021-11-17] MEDS: busPIRone HCl 10 MG TAB PO SCH (21:48)
[2021-11-17] MEDS: MIRTAZAPINE 45 MG TABLET PO SCH (21:48)
[2021-11-18] MEDS: HYDROmorphone 0.5 MG/0.5 ML SYRINGE IVP PRN ×6 (00:01→22:04)
[2021-11-18] MEDS: methylPREDNISolone SOD SUCCI 125 MG/2 ML VIAL IV SCH ×4 (00:01→17:49)
[2021-11-18] MEDS: BUTALB/APAP/CAFF 50-325-40MG TAB PO PRN ×4 (01:49→20:58)
[2021-11-18] MEDS: LEVOTHYROXINE 100 MCG TAB PO SCH (05:44)
[2021-11-18] MEDS: hydrOXYzine pamoate 25 MG CAP PO SCH ×3 (08:07→21:01)
[2021-11-18] MEDS: HEPARIN SODIUM,PORCINE/PF 5,000 UNIT/0.5 ML SYRINGE SQ SCH ×2 (08:07→20:00)
[2021-11-18] MEDS: AZITHROMYCIN 500 MG in SODIUM CHLORIDE 0.9% 250 ML IVPB SCH (08:07)
[2021-11-18] MEDS: PIPERACILLIN-TAZOBACTAM 3.375 GM in SODIUM CHLORIDE 0.9% 100 ML IVPB SCH ×4 (08:07→15:03)
[2021-11-18] MEDS: METHADONE 10 MG TAB PO SCH ×2 (08:08→20:00)
[2021-11-18] MEDS: ASPIRIN 81 MG PO SCH (08:08)
[2021-11-18] MEDS: SODIUM BICARBONATE TAB 650 MG TAB PO SCH (08:08)
[2021-11-18] MEDS: PANTOPRAZOLE 40 MG TABLET PO SCH (08:08)
[2021-11-18] MEDS: busPIRone HCl 10 MG TAB PO SCH ×2 (08:08→20:00)
[2021-11-18] MEDS: PARoxetine 10 MG TAB PO SCH (08:08)
[2021-11-18] MEDS: buPROPion XL 300 MG TAB.ER.24H PO SCH (08:09)
[2021-11-18] MEDS: LORATADINE 10 MG TAB PO SCH (08:09)
[2021-11-18 09:21] LABS: Basophils # (A) 0.03 X 10*3/uL (0.00-0.10); Basophils % (A) 0.2 %; Eosinophils # (A) 0 X 10*3/uL (0.04-0.35); Eosinophils % (A) 0 %; HCT 35.5 % (37.2-46.3); HGB 10.6 g/dL (12.0-15.0); Immature Grans, Automated 0.6 %; Lymphocytes # (A) 0.86 X 10*3/uL (0.90-5.00); Lymphocytes % (A) 4.7 %; MCH 26.9 pg (27.0-32.0); MCHC 29.9 g/dL (32.0-37.0); MCV 90.1 fL (80.0-97.0); Mean Platelet Volume 10.1 fL (9.5-12.2); Monocytes # (A) 0.44 X 10*3/uL (0.20-1.00); Monocytes % (A) 2.4 %; NRBC Per 100 WBC 0 /100 WBCS (0.0-0.0); Neutrophils # (A) 16.92 X 10*3/uL (1.80-7.70); Neutrophils % (A) 92.1 %; Platelet Count 419 X 10*3/uL (140-440); RBC 3.94 X 10*6/uL (4.10-5.20); RDW 16.2 % (11.5-14.5); WBC 18.36 X 10*3/uL (4.50-10.00)
[2021-11-18] MEDS: SYMBICORT 160-4.5 MCG INHALER INHALATION SCH ×2 (09:47→19:38)
[2021-11-18] MEDS: IPRATROPIUM-ALBUTEROL 3 ML NEB INHALATION SCH ×4 (09:47→19:38)
--- NOTE | 2021-11-18 10:33 | XR ---
EXAMINATION TYPE: XR chest 2V DATE OF EXAM: 11/18/2021 COMPARISON: 620 11/17/2021 HISTORY: Pneumonia TECHNIQUE: Frontal and lateral views of the chest are obtained. FINDINGS: Pleural parenchymal changes are similar to prior exam. This left-sided PICC line, distal t ip near the cavoatrial junction level. No evident pneumothorax. There are overlying artifacts. Cardia c mediastinal silhouette is unchanged. IMPRESSION: Abnormal chest x-ray shows a similar appearance, possible pulmonary masses, difficult to exclude associated pneumonia, cavitary mass in the left lower lobe
[2021-11-18 11:17] LABS: ALT 10 U/L (8-44); AST 19 U/L (13-35); African American GFR (CKD) 40.7 (60.0-200.0); Albumin 3.4 g/dL (3.8-4.9); Albumin/Globulin Ratio 1.18 (1.60-3.17); Alkaline Phosphatase 200 U/L (41-126); BUN/Creat Ratio 13.97 Ratio (12.00-20.00); Blood Urea Nitrogen 20.4 mg/dL (9.0-27.0); Calcium 8.4 mg/dL (8.7-10.3); Carbon Dioxide 22.5 mmol/L (20.0-27.5); Chloride 102 mmol/L (96-109); Globulin 2.9 g/dL (1.6-3.3); Glucose 160 mg/dL (70-110); Non-African American GFR(CKD) 35.1 (60.0-200.0); Potassium 4.8 mmol/L (3.5-5.5); Sodium 136 mmol/L (135-145); Total Bilirubin <0.15 mg/dL (0.30-1.20); Total Protein 6.2 g/dL (6.2-8.2)
[2021-11-18] MEDS: FERROUS SULFATE 325 MG TAB PO SCH (12:58)
[2021-11-18] MEDS: guaiFENesin 600 MG TABLET.ER PO SCH ×2 (12:58→20:00)
--- NOTE | 2021-11-18 13:33 | P.CNPUL ---
History of Present Illness Consult date: 11/18/21 Requesting physician: Aracely Macedo Reason for consult: dyspnea, cough Chief complaint: Dyspnea, cough History of present illness: 76-year-old female patient who is well-known to our service from previous hospitalizations for recurrent aspiration related pneumonia. Patient has a history of gastrectomy and patient is on TPN for nutritional support with some oral feedings. She has recently been in the hospital, after she had accidentally cut off one of the PICC line ports at home. A new PICC line was placed, patient was discharged home in stable condition to resume TPN and with the home care. Patient's primary care physician Dr. Eli had been trying to get the patient to the [facility] where the patient had her original gastrectomy. Most recently patient had undergone navigational bronchoscopy with biopsies and BAL of the left lower lobe on 10/09/2021 BAL cu ltures revealed Lesly glabrata, and Mycobacterium abscesses. Patient had received antibiotic infusions in the form of Zosyn. Right lower lobe lung biopsy was nondiagnostic for viable neoplasm, and negative for definitive granulomatous inflammation, left lower lung biopsy was nondiagnostic due to scant cellularity and abundant necrosis. Left lower lung bronchial wash brush tip and brushings were negative for diagnostic malignancy. On 11/17/2021 patient came into the emergency department with shortness of breath, cough, brown-colored phlegm production, decreased appetite, nausea vomiting diarrhea, and pain along the bilateral rib cage wrap around the back. Chest x-ray showed worsening left perihilar and left lower lobe infiltrate, and there was some improvement of the right perihilar increased lung markings. White count was elevated at 15.6, hemoglobin of 11, electrolytes are within normal limits, BUN was 20 creatinine 1.27, alk phos was 236, AST and OT were within normal limits, proBNP was 867 and troponin was less than 0.012, urinalysis showed rare budding yeast, small amount of leuks. COVID-19 influenza A and B were negative Review of Systems All systems: negative Constitutional: Denies chills, Denies fever Eyes: denies blurred vision, denies pain Ears, nose, mouth and throat: Denies headache, Denies sore throat Cardiovascular: Denies chest pain, Denies shortness of breath Respiratory: Reports dyspnea, Denies cough Gastrointestinal: Denies abdominal pain, Denies diarrhea, Denies nausea, Denies vomiting Genitourinary: Denies dysuria, Denies hematuria Musculoskeletal: Denies myalgias Integumentary: Denies pruritus, Denies rash Neurological: Denies numbness, Denies weakness Psychiatric: Denies anxiety, Denies depression Endocrine: Denies fatigue, Denies weight change Past Medical History Past Medical History: Asthma, COPD, CVA/TIA, GERD/Reflux, Memory Impairment, Osteoarthritis (OA), Pneumonia, Renal Disease, Respiratory Disorder, Thyroid Disorder Additional Past Medical History / Comment(s): Aspiration, pneumonias, 1.2021 covid pneumonia, protein calorie malnutrition, pt was on TPN with PICC line managed thru [facility], chronic anemia, gastric ulcers/PUD, pancreatitis, bowel obstruction/surgery, constipation, CKD stage IV, TIA, chronic migraines, chronic back/cervical pain/spinal stenosis, hypothyroid, hyponatremia. DAILY TPN History of Any Multi-Drug Resistant Organisms: None Reported, Other MDRO Date of last positivie culture/infection: 2021 MDRO Source:: urine Past Surgical History: Back Surgery, Bowel Resection, Hysterectomy, Joint Replac ement Additional Past Surgical History / Comment(s): LOWER BACK SURGERY la menectomy/discetomy then had a revison of that sx. 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, nasal sx d/t broken nose, colonoscopy/egd, PAIN CLINIC PROCEDURES, PORT A CATH INSERTION, LT ADEOLA Past Anesthesia/Blood Transfusion Reactions: No Reported Reaction Additional Past Anesthesia/Blood Transfusion Reaction / Comment(s): PT RECEIVED BLOOD TRANSFUSIONS AFTER STOMACH SURGERY Past Psychological History: Anxiety, Depression, Panic Disorder Additional Psychological History / Comment(s): Pt resides alone in an apartment. She has a limited legal guardian, Rosario Oneal. There is a petition filed to modify LG. Pt states her sister, Kamilah Gann with eventually be her LG. She had [facility] home care for TPN. She uses a walker at times to ambulate. She no longer drives, her ophthalmic photographer Jonn Parnell drives her to [employer], patient states he is her POA. She has ACT visits twice a week to check on her mental health. She recieves her meds in blister packs. Smoking Status: Never smoker Past Alcohol Use History: None Reported Past Drug Use History: None Reported - Past Family History Father Family Medical History: Cancer, Coronary Artery Disease (CAD) Additional Family Medical History / Comment(s): FATHER HAD BLADDER AND KIDNEY CANCER. FATHER HAD TB WHEN HE WAS A CHILD .FATHER AT AGE 87. Mother Family Medical History: Cancer Additional Family Medical History / Comment(s): MOTHER AT AGE 58 OF OVARIAN CANCER. Medications and Allergies Home Medications Medication Instructions Recorded Confirmed Type Ferrous Sulfate [Iron (65 MG 325 mg PO DAILY@1200 11/06/15 11/17/21 History Elemental)] calcitrioL [Calcitriol] 1 mcg PO MOWEFR 06/07/19 11/17/21 History busPIRone HCL [Buspar] 30 mg PO BID 04/14/20 11/17/21 History Butalb/APAP/Caff 50-325-40Mg 1 tab PO Q6H PRN 06/30/20 11/17/21 History [Fioricet 50-325-40] Albuterol Sulfate [Albuterol 2 puff INHALATION RT-Q6H PRN 04/07/21 11/17/21 History Sulfate Hfa] Budesonide/Formoterol Fumarate 2 puff INHALATION RT-BID 04/07/21 11/17/21 History [Symbicort 160-4.5 Mcg Inhaler] Aspirin EC [Ecotrin Low Dose] 81 mg PO DAILY 05/12/21 11/17/21 History Levothyroxine Sodium [Synthroid] 100 mcg PO DAILY@0630 30 Days #30 06/19/21 11/17/21 Rx tab Furosemide [Lasix] 20 mg PO DAILY PRN 08/08/21 11/17/21 History Omeprazole 20 mg PO DAILY 08/08/21 11/17/21 History hydrOXYzine pamoate [Vistaril] 50 mg PO TID 08/08/21 11/17/21 History polyethylene glycoL 3350 [Miralax] 17 gm PO DAILY PRN 08/08/21 11/17/21 History Sodium Bicarbonate Tab 650 mg PO DAILY 30 Days #30 tab 08/21/21 11/17/21 Rx Mirtazapine [Remeron] 45 mg PO HS 09/01/21 11/17/21 History Ondansetron [Zofran] 4 mg PO Q6H PRN 09/01/21 11/17/21 History Methadone [Dolophine] 20 mg PO BID tab 09/10/21 11/17/21 Rx Potassium Chloride ER [K-Dur 10] 30 meq PO DAILY PRN 10/08/21 11/17/21 History buPROPion XL [Wellbutrin XL] 300 mg PO DAILY 10/08/21 11/17/21 History Loratadine [Claritin] 10 mg PO DAILY 10/28/21 11/17/21 History Acetaminophen Tab [Tylenol] 650 mg PO Q6HR PRN tab 10/29/21 11/17/21 Rx Ondansetron Odt [Zofran Odt] 4 mg PO Q8HR PRN #15 tab 11/06/21 11/17/21 Rx PARoxetine [Paxil] 10 mg PO DAILY 11/17/21 11/17/21 History Allergies Allergy/AdvReac Type Severity Reaction Status Date / Time mold Allergy Itching Verified 11/17/21 15:42 denosumab [From Prolia] AdvReac SEVERE Verified 11/17/21 15:42 CALCIUM LOSS morphine AdvReac Confusion Verified 11/17/21 15:42 DUST Allergy Itching Uncoded 11/17/21 15:42 Physical Exam Vitals: Vital Signs Temp Pulse Pulse Resp BP BP Pulse Ox 11/18/21 10:00 90 11/18/21 09:48 88 11/18/21 08:00 93 16 11/18/21 07:30 98.3 F 93 16 124/72 97 11/18/21 02:00 98.1 F 106 H 16 153/81 99 11/17/21 19:41 18 11/17/21 19:40 98.7 F 96 18 137/80 97 11/17/21 18:18 18 11/17/21 17:29 98.4 F 94 16 163/91 98 11/17/21 16:13 97.8 F 96 18 165/91 100 11/17/21 15:30 98 18 169/106 100 11/17/21 13:21 101 H 18 98 Intake and Output 11/17/21 11/18/21 11/18/21 22:59 06:59 14:59 Other: Voiding Method Toilet Toilet # Voids 1 1 Weight 38.102 kg GENERAL EXAM: Alert, very pleasant, 76-year-old white female, cachectic, on room air pulse ox of 98% but appears to be in no acute distress, on room air comfortable in no apparent distress. HEAD: Normocephalic/atraumatic. EYES: Normal reaction of pupils, equal size. Conjunctiva pink, sclera white. NOSE: Clear with pink turbinates. THROAT: No erythema or exudates. NECK: No masses, no JVD, no thyroid enlargement, no adenopathy. CHEST: No chest wall deformity. Symmetrical expansion. LUNGS: Equal air entry with no crackles, wheeze, rhonchi or dullness. CVS: Regular rate and rhythm, normal S1 and S2, no gallops, no murmurs, no rubs ABDOMEN: Soft, nontender. No hepatosplenomegaly, normal bowel sounds, no guarding or rigidity. EXTREMITIES: No clubbing, no edema, no cyanosis, 2+ pulses and upper and lower extremities. MUSCULOSKELETAL: Muscle strength and tone normal. SPINE: No scoliosis or deformity SKIN: No rashes CENTRAL NERVOUS SYSTEM: Alert and oriented -3. No focal deficits, tone is normal in all 4 extremities. PSYCHIATRIC: Alert and oriented -3. Appropriate affect. Intact judgment and insight. Results - Laboratory Findings CBC and BMP: 11/18/21 06:28 11/18/21 06:28 PT/INR, D-dimer PT 10.2 sec (9.0-12.0) 11/17/21 13:24 INR 0.9 (<1.2) 11/17/21 13:24 Abnormal lab findings: Abnormal Labs 11/17/21 11/17/21 11/17/21 13:24 13:24 13:36 WBC 15.6 H RBC Hgb 11.0 L Hct MCH MCHC 30.2 L RDW 16.7 H Immature Gran # Neutrophils # 13.7 H Lymphocytes # 0.9 L Eosinophils # BUN 20 H Creatinine 1.27 H Est GFR (CKD-EPI)AfAm Est GFR (CKD-EPI)NonAf Glucose Calcium Magnesium 1.5 L Total Bilirubin Alkaline Phosphatase 236 H Albumin Albumin/Globulin Ratio Urine Protein 2+ H Urine Blood Trace H Ur Leukocyte Esterase Small H Urine WBC 7 H Urine Yeast (Budding) Rare H 11/18/21 11/18/21 06:28 06:28 WBC 18.36 H RBC 3.94 L Hgb 10.6 L Hct 35.5 L MCH 26.9 L MCHC 29.9 L RDW 16.2 H Immature Gran # 0.11 H Neutrophils # 16.92 H Lymphocytes # 0.86 L Eosinophils # 0 L BUN Creatinine Est GFR (CKD-EPI)AfAm 40.7 L Est GFR (CKD-EPI)NonAf 35.1 L Glucose 160 H Calcium 8.4 L Magnesium Total Bilirubin <0.15 L Alkaline Phosphatase 200 H Albumin 3.4 L Albumin/Globulin Ratio 1.18 L Urine Protein Urine Blood Ur Leukocyte Esterase Urine WBC Urine Yeast (Budding) - Diagnostic Findings Chest x-ray: report reviewed, image reviewed Assessment and Plan Plan: #1. Shortness of breath, ilateral rib pain, cough related to recurrent aspiration. COVID-19 PCR, influenza A and B were negative. Chest x-ray showed worsening left perihilar and lower lobe infiltrate, and improving right perihilar infiltrate. Patient recently had a navigational bronchoscopy with biopsies on 10/09/2021 which were nondiagnostic for malignancy, BAL cultures showed Lesly glabrata, and Mycobacterium abscesses, culture was sent to the [place] [facility] for identification #2. Dehydration, related to nausea and vomiting #3. Chronic pain syndrome, most recently on methadone for pain control #4. Chronic kidney disease stage III at baseline #5. Malnutrition and failure to thrive #6. Recurrent aspiration with multiple hospitalizations, patient is currently on TPN for nutritional support in addition to some oral feedings on soft diet #6. History of gastrectomy #7. Chronic pain syndrome #8. Previous history of CVA #9. History of hypothyroidism #10. History of spinal stenosis and chronic back pain #11. History of chronic anemia of chronic disease #12. Anxiety/depression Plan: Continue Zosyn for pneumatic coverage Chest x-ray has been reviewed We'll try to obtain a sputum for culture We'll send a serum procalcitonin level Continue TPN for nutritional support We'll follow patient's clinical course and make further recommendations I have personally seen and examined the patient, performed the documentation and the assessment and plan as written. Number of minutes spent on the visit: [15] Time with Patient: Greater than 30
[2021-11-18 14:56] LABS: Magnesium 1.7 mg/dL (1.6-2.3); Phosphorus 2.5 mg/dL (2.5-4.5)
[2021-11-18 15:04] VITALS: BMI 15.3
[2021-11-18] MEDS ORDERED: MVI, ADULT NO.4 WITH VIT K 10 ML, TRACE (CONC-1ML/DOSE) 1 ML in AMINO ACID 5%-D20W+LYTE... IV SCH ×3 (16:00)
[2021-11-18] MEDS ORDERED: FAT EMULSION 20% 250 ML in EMPTY BAG 1 BAG IV SCH (16:00)
--- NOTE | 2021-11-18 18:28 | P.PN ---
Subjective Progress Note Date: 11/18/21 On 11/18/2021 patient was seen and examined on the medical floor she is alert and oriented 3 in no apparent distress, she is complaining of cough and shortness of breath otherwise she denies any complaints, patient has a prolonged past medical history with recurrent admissions to [facility] was pneumonia she had a bronchoscopy was Dr. 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 Gregorio infectious disease. She was started on IV antibiotic in the emergency room, will continue with same at this time will resume TPN, consultation for pulmonary and infectious disease were initiated Objective - Vital Signs Vital signs: Vital Signs Temp 98.3 F 11/18/21 14:00 Pulse 95 11/18/21 15:09 Resp 20 11/18/21 14:00 BP 146/75 11/18/21 14:00 Pulse Ox 93 L 11/18/21 16:00 FiO2 Intake & Output 11/17/21 11/18/21 11/18/21 18:59 06:59 18:59 Weight 38.102 kg 38.102 kg Other: Voiding Method Toilet Toilet # Voids 1 1 - Exam In general patient is alert and oriented x 3 in no distress HEENT head normocephalic and atraumatic Neck is supple no JVD no goiter no lymphadenopathy no carotid bruit Chest examination reveals a scattered crackles in both lung calixto no wheezing Cardiac exam reveals regular heart sounds S1 and S2 no gallops no murmurs Abdomen is soft nontender no organomegaly with normal bowel sounds Extremity exam reveals no edema no cyanosis or clubbing Neurological examination reveals no gross focal deficits - Labs CBC & Chem 7: 11/18/21 06:28 11/18/21 06:28 Labs: Abnormal Lab Results - Last 24 Hours (Table) 11/18/21 11/18/21 Range/Units 06:28 06:28 WBC 18.36 H (4.50-10.00) X 10*3/uL RBC 3.94 L (4.10-5.20) X 10*6/uL Hgb 10.6 L (12.0-15.0) g/dL Hct 35.5 L (37.2-46.3) % MCH 26.9 L (27.0-32.0) pg MCHC 29.9 L (32.0-37.0) g/dL RDW 16.2 H (11.5-14.5) % Immature Gran # 0.11 H (0.00-0.04) X 10*3/uL Neutrophils # 16.92 H (1.80-7.70) X 10*3/uL Lymphocytes # 0.86 L (0.90-5.00) X 10*3/uL Eosinophils # 0 L (0.04-0.35) X 10*3/uL Est GFR (CKD-EPI)AfAm 40.7 L (60.0-200.0) Est GFR (CKD-EPI)NonAf 35.1 L (60.0-200.0) Glucose 160 H (70-110) mg/dL Calcium 8.4 L (8.7-10.3) mg/dL Total Bilirubin <0.15 L (0.30-1.20) mg/dL Alkaline Phosphatase 200 H (41-126) U/L Albumin 3.4 L (3.8-4.9) g/dL Albumin/Globulin Ratio 1.18 L (1.60-3.17) g/dL Microbiology - Last 24 Hours (Table) 11/17/21 16:00 Blood Culture - Preliminary Blood No Growth after 24 hours 11/17/21 15:45 Blood Culture - Preliminary Blood No Growth after 24 hours Assessment and Plan Plan: Recurrent pneumonia was cough and shortness of breath Evidence of dehydration related to nausea vomiting Malnutrition related to previous gastrectomy maintained on TPN Recurrent aspiration pneumonia Previous history of stroke Underlying history of hypothyroidism Underlying history of spinal stenosis with chronic back pain Underlying history of depression with anxiety At this time patient is admitted to medical floor She was started on IV antibiotic Zosyn and Zithromax in the emergency room will continue with same at this time Consultation for pulmonary and infectious disease initiated For DVT prophylaxis patient on subcu heparin
[2021-11-18] MEDS: SODIUM CHLORIDE 0.9% 1,000 ML IV SCH (19:38)
[2021-11-18] MEDS: MIRTAZAPINE 45 MG TABLET PO SCH (20:01)
[2021-11-19] MEDS: methylPREDNISolone SOD SUCCI 125 MG/2 ML VIAL IV SCH ×3 (00:58→11:39)
[2021-11-19] MEDS: PIPERACILLIN-TAZOBACTAM 3.375 GM in SODIUM CHLORIDE 0.9% 100 ML IVPB SCH ×3 (00:58→16:31)
[2021-11-19] MEDS: HYDROmorphone 0.5 MG/0.5 ML SYRINGE IVP PRN ×5 (03:07→20:28)
[2021-11-19] MEDS: BUTALB/APAP/CAFF 50-325-40MG TAB PO PRN ×4 (05:06→23:55)
[2021-11-19] MEDS: LEVOTHYROXINE 100 MCG TAB PO SCH (05:39)
[2021-11-19 07:29] LABS: African American GFR (CKD) 48 (>60 ml/min/1.73 sqM); Anion Gap 8 mmol/L; Blood Urea Nitrogen 29 mg/dL (7-17); Calcium 8.3 mg/dL (8.4-10.2); Carbon Dioxide 23 mmol/L (22-30); Chloride 106 mmol/L (98-107); Glucose 177 mg/dL (74-99); Magnesium 1.7 mg/dL (1.6-2.3); Non-African American GFR(CKD) 42 (>60 ml/min/1.73 sqM); Potassium 4.9 mmol/L (3.5-5.1); Sodium 137 mmol/L (137-145)
[2021-11-19 07:43] LABS: Ionized Calcium 4.9 mg/dL (4.5-5.3)
[2021-11-19] MEDS: FAT EMULSION 20% 250 ML in EMPTY BAG 1 BAG IV SCH (08:11)
[2021-11-19] MEDS: AZITHROMYCIN 500 MG in SODIUM CHLORIDE 0.9% 250 ML IVPB SCH (08:11)
[2021-11-19] MEDS: SYMBICORT 160-4.5 MCG INHALER INHALATION SCH ×2 (08:27→19:54)
[2021-11-19] MEDS: IPRATROPIUM-ALBUTEROL 3 ML NEB INHALATION SCH ×5 (08:27→19:54)
[2021-11-19] MEDS: ASPIRIN 81 MG PO SCH (08:46)
[2021-11-19] MEDS: SODIUM BICARBONATE TAB 650 MG TAB PO SCH (08:46)
[2021-11-19] MEDS: METHADONE 10 MG TAB PO SCH ×2 (08:46→20:36)
[2021-11-19] MEDS: busPIRone HCl 10 MG TAB PO SCH ×2 (08:47→20:36)
[2021-11-19] MEDS: buPROPion XL 300 MG TAB.ER.24H PO SCH (08:47)
[2021-11-19] MEDS: HEPARIN SODIUM,PORCINE/PF 5,000 UNIT/0.5 ML SYRINGE SQ SCH ×2 (08:47→20:36)
[2021-11-19] MEDS: PANTOPRAZOLE 40 MG TABLET PO SCH (08:47)
[2021-11-19] MEDS: LORATADINE 10 MG TAB PO SCH (08:47)
[2021-11-19] MEDS: hydrOXYzine pamoate 25 MG CAP PO SCH ×3 (08:47→20:35)
[2021-11-19] MEDS: guaiFENesin 600 MG TABLET.ER PO SCH ×2 (10:25→20:36)
[2021-11-19] MEDS: PARoxetine 10 MG TAB PO SCH (10:25)
[2021-11-19] MEDS: ONDANSETRON ODT 4 MG TAB PO PRN (10:25)
[2021-11-19] MEDS: FERROUS SULFATE 325 MG TAB PO SCH (10:25)
--- NOTE | 2021-11-19 13:50 | CT ---
EXAMINATION TYPE: CT chest wo con CT DLP: 155 mGycm, Automated exposure control for dose reduction was used. DATE OF EXAM: 11/19/2021 1:32 PM COMPARISON: Chest radiograph from 11/18/2021. Multiple CTs of the chest with most recent on 06/28/2021 CLINICAL INDICATION:Female, 76 years old with history of abnormal xray, Abnormal chest x-ray on 2 TECHNIQUE: Multiple axial images were obtained through the chest. Sagittal and coronal reformats were created for review. Contrast used: none. Oral contrast used: none. FINDINGS: LUNGS/ PLEURA: Trace right and small/trace left pleural effusions. Interval increase in size of right upper lobe cavitary lesion now measuring 5.3 x 2.7 centimeters previously 3.6 x 2.5 cm and left uppe r lobe lesion which is predominantly solid on prior now demonstrates cavitation measuring 4.4 x 3.5 c m, previously 3.0 x 3.5 cm. Interval increase in groundglass changes with additional nodules most pro nounced in the lower lungs. Additional cavitary lesions are seen throughout the lower lobes predomina ntly as well as more solid-appearing lesions example includes left lower lobe nodule measuring 2.1 cm which is stable to prior on 06/28/2021. AIRWAY: Patent and unremarkable. HEART: Size within normal limits. Mild atherosclerosis of the arterial vasculature. MEDIASTINUM: No gross evidence of adenopathy. VASCULATURE: No aortic aneurysm. Left PICC with distal tip projecting at the superior vena cava. MUSCULOSKELETAL: No acute osseous abnormalities moderate hiatal hernia is present. SOFT TISSUES/LYMPH NODES: Unremarkable. LOWER NECK: No significant findings. UPPER ABDOMEN: No significant findings. IMPRESSION: 1. Increase in size a number of cavitary lesions when comparing to prior on 06/28/2021. Findings may represent necrotizing pneumonia versus primary malignancy, metastatic disease versus infectious/infla mmatory process. Findings overall progressively getting worse since 10/10/2019. 2. Moderate hiatal hernia.
--- NOTE | 2021-11-19 15:20 | P.PN ---
Subjective Progress Note Date: 11/19/21 Principal diagnosis: Cough/shortness of breath/phlegm production. 76-year-old female patient who is well-known to our service from previous hospitalizations for recurrent aspiration related pneumonia. Patient has a history of gastrectomy and patient is on TPN for nutritional support with some oral feedings. She has recently been in the hospital, after she had accidentally cut off one of the PICC line ports at home. A new PICC line was placed, patient was discharged home in stable condition to resume TPN and with the home care. Patient's primary care physician Dr. Eli had been trying to get the patient to the [facility] where the patient had her original gastrectomy. Most recently patient had undergone navigational bronchoscopy with biopsies and BAL of the left lower lobe on 10/09/2021 BAL cultures revealed Lesly glabrata, and Mycobacterium abscesses. Patient had received antibiotic infusions in the form of Zosyn. Right lower lobe lung biopsy was nondiagnostic for viable neoplasm, and negative for definitive granulomatous inflammation, left lower lung biopsy was nondiagnostic due to scant cellularity and abundant necrosis. Left lower lung bronchial wash brush tip and brushings were negative for diagnostic malignancy. On 11/17/2021 patient came into the emergency department with shortness of breath, cough, brown-colored phlegm production, decreased appetite, nausea vomiting diarrhea, and pain along the bilateral rib cage wrap around the back. Chest x-ray showed worsening left perihilar and left lower lobe infiltrate, and there was some improvement of the right perihilar increased lung markings. White count was elevated at 15.6, hemoglobin of 11, electrolytes are within normal limits, BUN was 20 creatinine 1.27, alk phos was 236, AST and OT were within normal limits, proBNP was 867 and troponin was less than 0.012, urinalysis showed rare budding yeast, small amount of leuks. COVID-19 influenza A and B were negative Progress note dated 11/19/2021. 76-year-old female seen today, in room 477. She's on room air. She's getting TPN at 30 mL an hour. She is on Zosyn, and azithromycin. Clinically, she is ve ry stable. I recently did a navigational bronchoscopy with biopsies and BAL on this patient, which revealed Lesly glabrata and Mycobacterium abscesses. Biopsies, was negative for neoplasm. The patient was readmitted for possible pneumonia, with worsening infiltrates in the left lung, and improving infiltrate on the right. No new labs today sodium of 137, potassium 4.9, chlorides 106, CO2 23, BUN 29, creatinine 1.27. Blood cultures are negative. A CAT scan of the chest revealed an increase in size and number of cavitary lesions when compared to the previous computed tomography scan done in June of this year. Objective - Vital Signs Vital signs: Vital Signs Temp 98.4 F 11/19/21 14:00 Pulse 98 11/19/21 14:00 Resp 16 11/19/21 14:00 BP 143/77 11/19/21 14:00 Pulse Ox 97 11/19/21 14:00 FiO2 Intake & Output 11/18/21 11/19/21 11/19/21 18:59 06:59 18:59 Intake Total 980 Balance 980 Weight 38.102 kg Intake: Oral 980 Other: Voiding Method Toilet Toilet # Voids 1 2 # Bowel Movements 1 - Exam No acute distress, oriented 3. No respiratory distress, conversational dyspnea, or use of accessory muscles. The patient is on room air. HEENT examination is grossly unremarkable. Neck supple. Full range of motion. No adenopathy thyromegaly or neck vein distention. Cardiovascular examination reveals regular rhythm rate. S1-S2 normal. No S3 or S4. No discernible murmur noted. Heart rate 88 bpm. Lungs reveal scattered mild to moderate rhonchi. No wheezes or crackles. Breath sounds equal bilaterally. Room air saturation 97%. Abdomen soft bowel sounds are heard. No masses or tenderness. Extremities are intact. No cyanosis clubbing or edema. Skin is without rash or lesion. Neurologic examination is brief but nonfocal. - Labs CBC & Chem 7: 11/18/21 06:28 11/19/21 06:43 Labs: Abnormal Lab Results - Last 24 Hours (Table) 11/19/21 Range/Units 06:43 BUN 29 H (7-17) mg/dL Creatinine 1.27 H (0.52-1.04) mg/dL Glucose 177 H (74-99) mg/dL Calcium 8.3 L (8.4-10.2) mg/dL Microbiology - Last 24 Hours (Table) 11/17/21 16:00 Blood Culture - Preliminary Blood No Growth after 24 hours 11/17/21 15:45 Blood Culture - Preliminary Blood No Growth after 24 hours Assessment and Plan Assessment: #1. Shortness of breath, bilateral rib pain, cough related to recurrent aspiration. COVID-19 PCR, influenza A and B were negative. Chest x-ray showed worsening left perihilar and lower lobe infiltrate, and improving right perihilar infiltrate. Patient recently had a navigational bronchoscopy with biopsies on 10/09/2021 which were nondiagnostic for malignancy, BAL cultures showed Lesly glabrata, and Mycobacterium abscesses, culture was sent to the [facility] for identification. #2. Dehydration, related to nausea and vomiting. #3. Chronic pain syndrome, most recently on methadone for pain control. #4. Chronic kidney disease stage III. #5. Malnutrition and failure to thrive. #6. Recurrent aspiration with multiple hospitalizations, patient is currently on TPN for nutritional support in addition to some oral feedings on soft diet. #6. History of gastrectomy. #7. Chronic pain syndrome. #8. Previous history of CVA. #9. History of hypothyroidism. #10. History of spinal stenosis and chronic back pain. #11. History of chronic anemia of chronic disease #12. Anxiety/depression. Plan: Plan dated 11/19/2021. The patient remains on TPN at 30 mL an hour. She's not requiring any supplemental oxygen. The patient's getting breathing treatments, and Symbicort. In addition, the patient is getting Zosyn. Corticosteroids will be discontinued. Additional recommendations and suggestions are forthcoming. Unfortunately, the patient has had ten admissions and discharges already this year to this institution. We will continue to follow make recommendations where appropriate. The patient may be better suited at a long-term acute care facility. Time with Patient: Less than 30
[2021-11-19] MEDS: MAGNESIUM SULFATE-D5W PMX 1 GM in DEXTROSE/WATER 1 100ML.BAG IVPB SCH ×2 (16:31→17:56)
--- NOTE | 2021-11-19 16:53 | P.PN ---
Subjective Progress Note Date: 11/19/21 On 11/18/2021 patient was seen and examined on the medical floor she is alert and oriented 3 in no apparent distress, she is complaining of cough and shortness of breath otherwise she denies any complaints, patient has a prolonged past medical history with recurrent [facility] was pneumonia she had a bronchoscopy was Dr. 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 Gregorio infectious disease. She was started on IV antibiotic in the emergency room, will continue with same at this time will resume TPN, consultation for pulmonary and infectious disease were initiated On 11/19/2021 patient was seen and examined on the medical floor she is alert an d oriented 3 in no apparent distress she is complaining of abdominal cramping and diarrhea she is still complaining of cough and shortness of breath otherwise she denies any complaints there is no fever or chills no headache or dizziness no chest pain no nausea or vomiting, no blood in the stools no burning with urination no frequency or urgency and no hematuria. At this time will send a stool sample for C. diff will continue was current management otherwise. Objective - Vital Signs Vital signs: Vital Signs Temp 97.7 F 11/19/21 07:29 Pulse 88 11/19/21 13:19 Resp 16 11/19/21 07:29 BP 135/73 11/19/21 07:29 Pulse Ox 97 11/19/21 07:29 FiO2 Intake & Output 11/18/21 11/19/21 11/19/21 18:59 06:59 18:59 Intake Total 980 Balance 980 Weight 38.102 kg Intake: Oral 980 Other: Voiding Method Toilet Toilet # Voids 1 2 # Bowel Movements 1 - Exam In general patient is alert and oriented x 3 in no distress HEENT head normocephalic and atraumatic Neck is supple no JVD no goiter no lymphadenopathy no carotid bruit Chest examination reveals a scattered crackles in both lung calixto no wheezing Cardiac exam reveals regular heart sounds S1 and S2 no gallops no murmurs Abdomen is soft nontender no organomegaly with normal bowel sounds Extremity exam reveals no edema no cyanosis or clubbing Neurological examination reveals no gross focal deficits - Labs CBC & Chem 7: 11/18/21 06:28 11/19/21 06:43 Labs: Abnormal Lab Results - Last 24 Hours (Table) 11/19/21 Range/Units 06:43 BUN 29 H (7-17) mg/dL Creatinine 1.27 H (0.52-1.04) mg/dL Glucose 177 H (74-99) mg/dL Calcium 8.3 L (8.4-10.2) mg/dL Microbiology - Last 24 Hours (Table) 11/17/21 16:00 Blood Culture - Preliminary Blood No Growth after 24 hours 11/17/21 15:45 Blood Culture - Preliminary Blood No Growth after 24 hours Assessment and Plan Plan: Recurrent pneumonia was cough and shortness of breath Evidence of dehydration related to nausea vomiting Malnutrition related to previous gastrectomy maintained on TPN Recurrent aspiration pneumonia Previous history of stroke Underlying history of hypothyroidism Underlying history of spinal stenosis with chronic back pain Underlying history of depression with anxiety At this time patient is admitted to medical floor She was started on IV antibiotic Zosyn and Zithromax in the emergency room will continue with same at this time Consultation for pulmonary and infectious disease initiated For DVT prophylaxis patient on subcu heparin
[2021-11-19] MEDS: SODIUM CHLORIDE 0.9% 1,000 ML IV SCH (20:49)
[2021-11-19] MEDS: MVI, ADULT NO.4 WITH VIT K 10 ML, TRACE (CONC-1ML/DOSE) 1 ML in AMINO ACID 5%-D20W+LYTE... IV SCH ×3 (21:00)
[2021-11-19] MEDS ORDERED: AMIKACIN IV PER PHARMACY 1 EACH MISC MISCELLANE PRN (21:51)
[2021-11-19] MEDS: MIRTAZAPINE 45 MG TABLET PO SCH (22:18)
[2021-11-19] MEDS: SODIUM CHLORIDE 0.9% IVPB SCH (22:42)
[2021-11-19] MEDS: AMIKACIN SULFATE IVPB SCH (22:42)
[2021-11-20] MEDS: MEROPENEM 1 GM in SODIUM CHLORIDE 0.9% 100 ML IVPB SCH ×2 (00:25→08:53)
[2021-11-20] MEDS: HYDROmorphone 0.5 MG/0.5 ML SYRINGE IVP PRN ×6 (00:30→23:15)
[2021-11-20] MEDS: LEVOTHYROXINE 100 MCG TAB PO SCH (06:20)
[2021-11-20] MEDS: BUTALB/APAP/CAFF 50-325-40MG TAB PO PRN ×3 (06:24→20:18)
--- NOTE | 2021-11-20 07:02 | P.CONS ---
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 however patient apparently has not followed up with me or with the pulmonary for further treatment of the same patient now presenting back to the hospital 2 days ago for evaluation of increasing shortness of breath cough and sputum production along with a fever symptom has been getting worse for the last few days patient complaining of shortness of breath on minimal exertion she also have a cough moderate increased density and is bringing up some sputum no hemoptysis complai michelle of feeling nauseated but no vomiting bilateral lower rib cage pain describing to be sharp 7-8 out of 10 and no radiation patient was complaining of fever however no fever have been recorded during this hospital stay, patient did have elevated white count chest x-ray tissues evidence of right-sided pneumonia with question of cavitation patient was initially started on Rocephin and Zithromax which was switched to Zosyn and infectious disease was consulted for further management of antibiotic therapy Past Medical History Past Medical History: Asthma, COPD, CVA/TIA, GERD/Reflux, Memory Impairment, Osteoarthritis (OA), Pneumonia, Renal Disease, Respiratory Disorder, Thyroid Disorder Additional Past Medical History / Comment(s): Aspiration, pneumonias, 1.2021 covid pneumonia, protein calorie malnutrition, pt was on TPN with PICC line managed thru [facility], chronic anemia, gastric ulcers/PUD, pancreatitis, bowel obstruction/surgery, constipation, CKD stage IV, TIA, chronic migraines, chronic back/cervical pain/spinal stenosis, hypothyroid, hyponatremia. DAILY TPN History of Any Multi-Drug Resistant Organisms: None Reported, Other MDRO Year Discovered:: 2021 MDRO Source:: urine Past Surgical History: Back Surgery, Bowel Resection, Hysterectomy, Joint Replacement Additional Past Surgical History / Comment(s): LOWER BACK SURGERY lamenectomy/discetomy then had a revison of that sx. 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 She has a limited legal guardian, Rosario Oneal. There is a petition filed to modify LG. Pt states her sister, Kamilah Gann with eventually be her LG. She had [facility] home care for TPN. She uses a walker at times to ambulate. She no longer drives, her events specialist Jonn Parnell drives her to [employer], patient states he is her POA. She has ACT visits twice a week to check on her mental health. She recieves her meds in blister packs. Smoking Status: Never smoker Past Alcohol Use History: None Reported Past Drug Use History: None Reported - Past Family History Father Family Medical History: Cancer, Coronary Artery Disease (CAD) Additional Family Medical History / Comment(s): FATHER HAD BLADDER AND KIDNEY CANCER. FATHER HAD TB WHEN HE WAS A CHILD .FATHER AT AGE 87. Mother Family Medical History: Cancer Additional Family Medical History / Comment(s): MOTHER AT AGE 58 OF OVARIAN CANCER. Medications and Allergies Home Medications Medication Instructions Recorded Confirmed Type Ferrous Sulfate [Iron (65 MG 325 mg PO DAILY@1200 11/06/15 11/17/21 History Elemental)] calcitrioL [Calcitriol] 1 mcg PO MOWEFR 06/07/19 11/17/21 History busPIRone HCL [Buspar] 30 mg PO BID 04/14/20 11/17/21 History Butalb/APAP/Caff 50-325-40Mg 1 tab PO Q6H PRN 06/30/20 11/17/21 History [Fioricet 50-325-40] Albuterol Sulfate [Albuterol 2 puff INHALATION RT-Q6H PRN 04/07/21 11/17/21 History Sulfate Hfa] Budesonide/Formoterol Fumarate 2 puff INHALATION RT-BID 04/07/21 11/17/21 History [Symbicort 160-4.5 Mcg Inhaler] Aspirin EC [Ecotrin Low Dose] 81 mg PO DAILY 05/12/21 11/17/21 History Levothyroxine Sodium [Synthroid] 100 mcg PO DAILY@0630 30 Days #30 06/19/21 11/17/21 Rx tab Furosemide [Lasix] 20 mg PO DAILY PRN 08/08/21 11/17/21 History Omeprazole 20 mg PO DAILY 08/08/21 11/17/21 History hydrOXYzine pamoate [Vistaril] 50 mg PO TID 08/08/21 11/17/21 History polyethylene glycoL 3350 [Miralax] 17 gm PO DAILY PRN 08/08/21 11/17/21 History Sodium Bicarbonate Tab 650 mg PO DAILY 30 Days #30 tab 08/21/21 11/17/21 Rx Mirtazapine [Remeron] 45 mg PO HS 09/01/21 11/17/21 History Ondansetron [Zofran] 4 mg PO Q6H PRN 09/01/21 11/17/21 History Methadone [Dolophine] 20 mg PO BID tab 09/10/21 11/17/21 Rx Potassium Chloride ER [K-Dur 10] 30 meq PO DAILY PRN 10/08/21 11/17/21 History buPROPion XL [Wellbutrin XL] 300 mg PO DAILY 10/08/21 11/17/21 History Loratadine [Claritin] 10 mg PO DAILY 10/28/21 11/17/21 History Acetaminophen Tab [Tylenol] 650 mg PO Q6HR PRN tab 10/29/21 11/17/21 Rx Ondansetron Odt [Zofran Odt] 4 mg PO Q8HR PRN #15 tab 11/06/21 11/17/21 Rx PARoxetine [Paxil] 10 mg PO DAILY 11/17/21 11/17/21 History Allergies Allergy/AdvReac Type Severity Reaction Status Date / Time mold Allergy Itching Verified 11/17/21 15:42 denosumab [From Prolia] AdvReac SEVERE Verified 11/17/21 15:42 CALCIUM LOSS morphine AdvReac Confusion Verified 11/17/21 15:42 DUST Allergy Itching Uncoded 11/17/21 15:42 Physical Exam Vitals: Vital Signs Temp Pulse Pulse Resp BP Pulse Ox 11/19/21 07:29 97.7 F 92 16 135/73 97 11/19/21 02:00 97.6 F 88 16 142/74 97 11/18/21 20:00 98.2 F 101 H 17 154/74 98 11/18/21 19:50 91 11/18/21 19:39 90 11/18/21 16:00 93 L 11/18/21 15:09 95 11/18/21 14:59 97 94 L 11/18/21 14:00 98.3 F 111 H 20 146/75 96 Intake and Output 11/18/21 11/19/21 11/19/21 22:59 06:59 14:59 Intake Total 980 Balance 980 Intake: Oral 980 Other: Voiding Method Toilet # Voids 1 2 # Bowel Movements 1 Weight 38.102 kg Results CBC & Chem 7: 11/18/21 06:28 11/19/21 06:43 Labs: Abnormal Lab Results - Last 24 Hours (Table) 11/18/21 11/19/21 Range/Units 06:28 06:43 BUN 29 H (7-17) mg/dL Creatinine 1.27 H (0.52-1.04) mg/dL Est GFR (CKD-EPI)AfAm 40.7 L (60.0-200.0) Est GFR (CKD-EPI)NonAf 35.1 L (60.0-200.0) Glucose 160 H 177 H (70-110) mg/dL Calcium 8.4 L 8.3 L (8.7-10.3) mg/dL Total Bilirubin <0.15 L (0.30-1.20) mg/dL Alkaline Phosphatase 200 H (41-126) U/L Albumin 3.4 L (3.8-4.9) g/dL Albumin/Globulin Ratio 1.18 L (1.60-3.17) g/dL Microbiology - Last 24 Hours (Table) 11/17/21 16:00 Blood Culture - Preliminary Blood No Growth after 24 hours 11/17/21 15:45 Blood Culture - Preliminary Blood No Growth after 24 hours Assessment and Plan Plan: 1-patient presented to hospital with shortness of breath and cough in this patient did have evidence of cavitating pneumonia on the chest x-ray with recent bronchoscopy culture positive for Mycobacterium abscessus likely the etiology 2-detailed discussion with the micro lab sensitivities has not been finalized and they are not sure when it will be back 3-patient will need to be on 3 drugs with empirically start the patient on amikacin pharmacy to dose along with imipenem and tigecycline 4-kidney function will need to be monitored closely We will follow on clinical condition and cultures to further adjust medication if needed Thank you for this consultation will follow this patient along with you
[2021-11-20] MEDS: SYMBICORT 160-4.5 MCG INHALER INHALATION SCH ×2 (07:34→20:32)
[2021-11-20] MEDS: IPRATROPIUM-ALBUTEROL 3 ML NEB INHALATION SCH ×4 (07:34→20:33)
[2021-11-20] MEDS: guaiFENesin 600 MG TABLET.ER PO SCH ×2 (08:51→20:19)
[2021-11-20] MEDS: SODIUM BICARBONATE TAB 650 MG TAB PO SCH (08:51)
[2021-11-20] MEDS: hydrOXYzine pamoate 25 MG CAP PO SCH ×3 (08:51→21:52)
[2021-11-20] MEDS: ASPIRIN 81 MG PO SCH (08:51)
[2021-11-20] MEDS: PANTOPRAZOLE 40 MG TABLET PO SCH (08:51)
[2021-11-20] MEDS: busPIRone HCl 10 MG TAB PO SCH ×2 (08:52→20:18)
[2021-11-20] MEDS: METHADONE 10 MG TAB PO SCH ×2 (08:52→20:19)
[2021-11-20] MEDS: PARoxetine 10 MG TAB PO SCH (08:52)
[2021-11-20] MEDS: LORATADINE 10 MG TAB PO SCH (08:52)
[2021-11-20] MEDS: buPROPion XL 300 MG TAB.ER.24H PO SCH (08:52)
[2021-11-20] MEDS: HEPARIN SODIUM,PORCINE/PF 5,000 UNIT/0.5 ML SYRINGE SQ SCH ×2 (08:53→20:20)
--- NOTE | 2021-11-20 11:40 | P.PN ---
Subjective Progress Note Date: 11/20/21 Principal diagnosis: Cough/shortness of breath/phlegm production. 76-year-old female patient who is well-known to our service from previous hospitalizations for recurrent aspiration related pneumonia. Patient has a history of gastrectomy and patient is on TPN for nutritional support with some oral feedings. She has recently been in the hospital, after she had accidentally cut off one of the PICC line ports at home. A new PICC line was placed, patient was discharged home in stable condition to resume TPN and with the home care. Patient's primary care physician Dr. Eli had been trying to get the patient to the [facility] where the patient had her original gastrectomy. Most recently patient had undergone navigational bronchoscopy with biopsies and BAL of the left lower lobe on 10/09/2021 BAL cultures revealed Lesly glabrata, and Mycobacterium abscesses. Patient had received antibiotic infusions in the form of Zosyn. Right lower lobe lung biopsy was nondiagnostic for viable neoplasm, and negative for definitive granulomatous inflammation, left lower lung biopsy was nondiagnostic due to scant cellularity and abundant necrosis. Left lower lung bronchial wash brush tip and brushings were negative for diagnostic malignancy. On 11/17/2021 patient came into the emergency department with shortness of breath, cough, brown-colored phlegm production, decreased appetite, nausea vomiting diarrhea, and pain along the bilateral rib cage wrap around the back. Chest x-ray showed worsening left perihilar and left lower lobe infiltrate, and there was some improvement of the right perihilar increased lung markings. White count was elevated at 15.6, hemoglobin of 11, electrolytes are within normal limits, BUN was 20 creatinine 1.27, alk phos was 236, AST and OT were within normal limits, proBNP was 867 and troponin was less than 0.012, urinalysis showed rare budding yeast, small amount of leuks. COVID-19 influenza A and B were negative Progress note dated 11/19/2021. 76-year-old female seen today, in room 477. She's on room air. She's getting TPN at 30 mL an hour. She is on Zosyn, and azithromycin. Clinically, she is ve ry stable. I recently did a navigational bronchoscopy with biopsies and BAL on this patient, which revealed Lesly glabrata and Mycobacterium abscesses. Biopsies, was negative for neoplasm. The patient was readmitted for possible pneumonia, with worsening infiltrates in the left lung, and improving infiltrate on the right. No new labs today sodium of 137, potassium 4.9, chlorides 106, CO2 23, BUN 29, creatinine 1.27. Blood cultures are negative. A CAT scan of the chest revealed an increase in size and number of cavitary lesions when compared to the previous computed tomography scan done in June of this year. Progress note dated 11/20/2021. 76-year-old female well-known to our service. She seen today again in room 477. She is on room air. She's getting TPN at 50 mL an hour. Her current antibiotics include meropenem and amikacin. The cultures are thus far negative. She was initially on Zosyn and azithromycin. Her antibiotics are being managed by infectious diseases. No new labs today. Clinically, she is feeling only a bit better. Objective - Vital Signs Vital signs: Vital Signs Temp 96.9 F L 11/20/21 07:29 Pulse 92 11/20/21 11:30 Resp 15 11/20/21 10:14 BP 144/76 11/20/21 07:29 Pulse Ox 96 11/20/21 11:30 FiO2 Intake & Output 11/19/21 11/20/21 11/20/21 18:59 06:59 18:59 Intake Total 590 Balance 590 Intake: Oral 590 Other: Voiding Method Toilet Bedside Commode # Voids 2 3 # Bowel Movements 1 1 - Exam No acute distress, oriented 3. No respiratory distress, conversational dyspnea, or use of accessory muscles. The patient is on room air. HEENT examination is grossly unremarkable. Neck supple. Full range of motion. No adenopathy thyromegaly or neck vein d istention. Cardiovascular examination reveals regular rhythm rate. S1-S2 normal. No S3 or S4. No discernible murmur noted. Heart rate 92 bpm. Lungs reveal scattered mild to moderate rhonchi. No wheezes or crackles. Breath sounds equal bilaterally. Room air saturation 96 %. Abdomen soft bowel sounds are heard. No masses or tenderness. Extremities are intact. No cyanosis clubbing or edema. Skin is without rash or lesion. Neurologic examination is brief but nonfocal. - Labs CBC & Chem 7: 11/18/21 06:28 11/19/21 06:43 Labs: Microbiology - Last 24 Hours (Table) 11/17/21 16:00 Blood Culture - Preliminary Blood No Growth after 48 hours 11/17/21 15:45 Blood Culture - Preliminary Blood No Growth after 48 hours Assessment and Plan Assessment: #1. Shortness of breath, bilateral rib pain, cough related to recurrent aspiration. COVID-19 PCR, influenza A and B were negative. Chest x-ray showed worsening left perihilar and lower lobe infiltrate, and improving right perihilar infiltrate. Patient recently had a navigational bronchoscopy with biopsies on 10/09/2021 which were nondiagnostic for malignancy, BAL cultures showed Lesly glabrata, and Mycobacterium abscesses, culture was sent to the [facility] for identification. #2. Dehydration, related to nausea and vomiting. #3. Chronic pain syndrome, most recently on methadone for pain control. #4. Chronic kidney disease stage III. #5. Malnutrition and failure to thrive. #6. Recurrent aspiration with multiple hospitalizations, patient is currently on TPN for nutritional support in addition to some oral feedings on soft diet. #6. History of gastrectomy. #7. Chronic pain syndrome. #8. Previous history of CVA. #9. History of hypothyroidism. #10. History of spinal stenosis and chronic back pain. #11. History of chronic anemia of chronic disease #12. Anxiety/depression. Plan: Plan dated 11/19/2021. The patient remains on TPN at 30 mL an hour. She's not requiring any supplemental oxygen. The patient's getting breathing treatments, and Symbicort. In addition, the patient is getting Zosyn. Corticosteroids will be discontinued. Additional recommendations and suggestions are forthcoming. Unfortunately, the patient has had ten admissions and discharges already this year to this institution. We will continue to follow make recommendations where appropriate. The patient may be better suited at a long-term acute care facility. Plan dated 11/20/2021. The patient remains on TPN, and does not require any supplemental oxygen. She was seen by infectious disease biometrics consultant, and the patient is currently on meropenem and amikacin. Blood cultures are thus far negative. Clinically, she looks very stable. She states that she is only minimally improved. As mentioned previously, the patient has had 10 admissions and discharges this year already. Her prognosis is guarded. We will continue to follow make recommendations, where appropriate. Time with Patient: Less than 30
[2021-11-20] MEDS: FERROUS SULFATE 325 MG TAB PO SCH (13:38)
[2021-11-20 15:05] LABS: Basophils # (A) 0.04 X 10*3/uL (0.00-0.10); Basophils % (A) 0.2 %; Eosinophils # (A) 0.09 X 10*3/uL (0.04-0.35); Eosinophils % (A) 0.6 %; HCT 34.4 % (37.2-46.3); HGB 10.1 g/dL (12.0-15.0); Immature Grans, Automated 1.1 %; Lymphocytes # (A) 1.86 X 10*3/uL (0.90-5.00); Lymphocytes % (A) 11.6 %; MCH 26.4 pg (27.0-32.0); MCHC 29.4 g/dL (32.0-37.0); MCV 90.1 fL (80.0-97.0); Mean Platelet Volume 9.3 fL (9.5-12.2); Monocytes # (A) 1.35 X 10*3/uL (0.20-1.00); Monocytes % (A) 8.4 %; NRBC Per 100 WBC 0 /100 WBCS (0.0-0.0); Neutrophils # (A) 12.52 X 10*3/uL (1.80-7.70); Neutrophils % (A) 78.1 %; Platelet Count 462 X 10*3/uL (140-440); RBC 3.82 X 10*6/uL (4.10-5.20); RDW 16.4 % (11.5-14.5); WBC 16.03 X 10*3/uL (4.50-10.00)
[2021-11-20] MEDS: IMIPENEM CILASTATIN IVPB SCH ×2 (15:17→22:58)
[2021-11-20] MEDS: SODIUM CHLORIDE 0.9% IVPB SCH ×2 (15:17→22:58)
[2021-11-20 16:07] LABS: Magnesium 2.2 mg/dL (1.5-2.4); Phosphorus 2.4 mg/dL (2.4-5.1)
[2021-11-20 16:13] LABS: African American GFR (CKD) 47.2 (60.0-200.0); Anion Gap 12.3 mmol/L (10.00-18.00); BUN/Creat Ratio 25.81 Ratio (12.00-20.00); Blood Urea Nitrogen 33.3 mg/dL (9.0-27.0); Calcium 8.6 mg/dL (8.7-10.3); Carbon Dioxide 21.6 mmol/L (20.0-27.5); Non-African American GFR(CKD) 40.8 (60.0-200.0); Potassium 4.9 mmol/L (3.5-5.5)
--- NOTE | 2021-11-20 17:34 | P.PN ---
Subjective Progress Note Date: 11/20/21 On 11/18/2021 patient was seen and examined on the medical floor she is alert and oriented 3 in no apparent distress, she is complaining of cough and shortness of breath otherwise she denies any complaints, patient has a prolonged past medical history with recurrent admissions to assess Hospital was pneumonia she had a bronchoscopy was Dr. 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 Gregorio infectious disease. She was started on IV antibiotic in the emergency room, will continue with same at this time will resume TPN, consultation for pulmonary and infectious disease were initiated On 11/19/2021 patient was seen and examined on the medical floor she is alert an d oriented 3 in no apparent distress she is complaining of abdominal cramping and diarrhea she is still complaining of cough and shortness of breath otherwise she denies any complaints there is no fever or chills no headache or dizziness no chest pain no nausea or vomiting, no blood in the stools no burning with urination no frequency or urgency and no hematuria. At this time will send a stool sample for C. diff will continue was current management otherwise. On 11/20/2021 patient was seen and examined on the medical floor she is alert and oriented in no distress, she is still complaining of cough and shortness of breath otherwise she denies any complaints there is no fever or chills no h eadache or dizziness no chest pain no nausea or vomiting no abdominal pain no blood in the stools no burning with urination no frequency or urgency no hematuria, patient still complaining of some diarrhea .Will check stools for C. diff Objective - Vital Signs Vital signs: Vital Signs Temp 96.9 F L 11/20/21 07:29 Pulse 89 11/20/21 11:39 Resp 15 11/20/21 10:14 BP 144/76 11/20/21 07:29 Pulse Ox 96 11/20/21 11:30 FiO2 Intake & Output 11/19/21 11/20/21 11/20/21 18:59 06:59 18:59 Intake Total 590 Balance 590 Intake: Oral 590 Other: Voiding Method Toilet Bedside Commode # Voids 2 3 # Bowel Movements 1 1 - Exam In general patient is alert and oriented x 3 in no distress HEENT head normocephalic and atraumatic Neck is supple no JVD no goiter no lymphadenopathy no carotid bruit Chest examination reveals a scattered crackles in both lung calixto no wheezing Cardiac exam reveals regular heart sounds S1 and S2 no gallops no murmurs Abdomen is soft nontender no organomegaly with normal bowel sounds Extremity exam reveals no edema no cyanosis or clubbing Neurological examination reveals no gross focal deficits - Labs CBC & Chem 7: 11/20/21 08:04 11/20/21 08:04 Labs: Microbiology - Last 24 Hours (Table) 11/17/21 16:00 Blood Culture - Preliminary Blood No Growth after 48 hours 11/17/21 15:45 Blood Culture - Preliminary Blood No Growth after 48 hours Assessment and Plan Plan: Recurrent pneumonia was cough and shortness of breath Evidence of dehydration related to nausea vomiting Malnutrition related to previous gastrectomy maintained on TPN Recurrent aspiration pneumonia Previous history of stroke Underlying history of hypothyroidism Underlying history of spinal stenosis with chronic back pain Underlying history of depression with anxiety At this time patient is admitted to medical floor She was started on IV antibiotic Zosyn and Zithromax in the emergency room will continue with same at this time Consultation for pulmonary and infectious disease initiated For DVT prophylaxis patient on subcu heparin
--- NOTE | 2021-11-20 17:56 | CDI ---
Documentation Clarification Form Date: 11/20/2021 05:41:08 PM From: Zakiya Rivera RN, CCDS Admit Date: 11/17/2021 03:20:00 PM Patient Name: Louise Sutton Visit Number: [id number] Discharge Date: ATTENTION: The Clinical Documentation Specialists (CDI) and [facility] Coding Staff appreciate your assistance in clarifying documentation. Please respond to the clarification below the line at the bottom and electronically sign. The CDI & [facility] Coding staff will review the response and follow-up if needed. Please note: Queries are made part of the Legal Health Record. If you have any questions, please contact the author of this message via ITS. Dr. Palmer Desir Malnutrition is documented in the nutritional assessment and progress notes starting on 11/18/21. Additional clarification regarding the severity of malnutrition is requested. History/Risk Factors: CVA, Asthma, Gastric ulcers, PUD, protein calorie malnutrition, on daily TPN Clinical Indicators: 76-year-old male with a decreased appetite, nausea, vomiting and diarrhea. History of severe chronic malnutrition on long-term TPN support. Current BMI: 15.4 Insufficient energy intake: Yes Weight Loss: Underweight Loss of subcutaneous fat: Yes Loss of muscle mass: Yes Emaciated, appearance/severe muscle wasting RD Consult Assessment: Malnutrition severe chronic Treatment: Dietary Consult: yes TPN: per orders 50 ml/hr 1200 ml total volume daily Ensure Enlive TID Please clarify the type of malnutrition, if known: [ ] Mild Protein-Calorie Malnutrition [ ] Moderate Protein-Calorie Malnutrition [ xxx ] Severe Protein-Calorie Malnutrition [ ] Other condition, please specify [ ] Unable to Determine (Template Last Revised: June 2020) MTDD
[2021-11-20] MEDS: MIRTAZAPINE 45 MG TABLET PO SCH (20:20)
--- NOTE | 2021-11-20 22:44 | P.PN ---
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 On today's evaluation that is 11/20/2021, the patient denies having any fever or any chills, she is currently breathing comfortably on room air, still complaining of lower rib cage pain and also complaining of diarrhea no vomiting no urinary symptoms Objective - Vital Signs Vital signs: Vital Signs Temp 98.5 F 11/20/21 19:00 Pulse 94 11/20/21 19:00 Resp 18 11/20/21 19:00 BP 151/77 11/20/21 19:00 Pulse Ox 97 11/20/21 19:00 FiO2 Intake & Output 11/20/21 11/20/21 11/21/21 06:59 18:59 06:59 Intake Total 590 420 Balance 590 420 Weight 38.102 kg Intake: Intake, IV Titration 300 Amount Meropenem 1 gm In Sodium 100 Chloride 0.9% 100 ml @ 33 .3 mls/hr IVPB Q8HR [facility] Rx#:[id number] Piperacillin-Tazobactam 3 200 .375 gm In Sodium Chloride 0.9% 100 ml @ 25 mls/hr IVPB Q8HR [facility] Rx# :[id number] Oral 590 120 Other: Voiding Method Toilet Bedside Commode # Voids 3 4 # Bowel Movements 1 2 - Exam GENERAL DESCRIPTION: An elderly female lying in bed in no distress RESPIRATORY SYSTEM: Unlabored breathing , decreased breath sounds at bases HEART: S1 S2 regular rate and rhythm , ABDOMEN: Soft , no tenderness EXTREMITIES: No edema feet - Labs CBC & Chem 7: 11/21/21 08:10 11/22/21 08:28 Labs: Abnormal Lab Results - Last 24 Hours (Table) 11/20/21 11/20/21 11/20/21 Range/Units 08:04 08:04 08:04 WBC 16.03 H (4.50-10.00) X 10*3/uL RBC 3.82 L (4.10-5.20) X 10*6/uL Hgb 10.1 L (12.0-15.0) g/dL Hct 34.4 L (37.2-46.3) % MCH 26.4 L (27.0-32.0) pg MCHC 29.4 L (32.0-37.0) g/dL RDW 16.4 H (11.5-14.5) % Plt Count 462 H (140-440) X 10*3/uL MPV 9.3 L (9.5-12.2) fL Immature Gran # 0.17 H (0.00-0.04) X 10*3/uL Neutrophils # 12.52 H (1.80-7.70) X 10*3/uL Monocytes # 1.35 H (0.20-1.00) X 10*3/uL BUN 33.3 H (9.0-27.0) mg/dL Est GFR (CKD-EPI)AfAm 47.2 L (60.0-200.0) Est GFR (CKD-EPI)NonAf 40.8 L (60.0-200.0) BUN/Creatinine Ratio 25.81 H (12.00-20.00) Ratio Calcium 8.6 L (8.7-10.3) mg/dL C-Reactive Protein 3.00 H (0.00-0.80) mg/dL Procalcitonin 0.15 H (0.02-0.09) ng/mL Microbiology - Last 24 Hours (Table) 11/17/21 16:00 Blood Culture - Preliminary Blood No Growth after 72 hours 11/17/21 15:45 Blood Culture - Preliminary Blood No Growth after 72 hours Assessment and Plan (1) Pneumonia Current Visit: Yes Status: Acute Code(s): J18.9 - PNEUMONIA, UNSPECIFIED ORGANISM SNOMED Code(s): 398956818 Plan: 1-patient presented to hospital with shortness of breath and cough in this patient did have evidence of cavitating pneumonia on the chest x-ray with recent bronchoscopy culture positive for Mycobacterium abscessus likely the etiology 2-detailed discussion with the micro lab sensitivities has not been finalized and they are not sure when it will be back 3-patient did have a chest CT on 11/19/2021 with evidence of increase in size and number of cavitating lesion concerning for necrotizing pneumonia 4patient to continue with amikacin pharmacy to dose along with imipenem and pharmacy is working on getting tigecycline 4-kidney function will need to be monitored closely Time with Patient: Less than 30
[2021-11-20] MEDS: SODIUM CHLORIDE 0.9% 1,000 ML IV SCH (23:16)
[2021-11-21] MEDS: MVI, ADULT NO.4 WITH VIT K 10 ML, TRACE (CONC-1ML/DOSE) 1 ML in AMINO ACID 5%-D20W+LYTE... IV SCH ×6 (00:50→11:30)
[2021-11-21] MEDS: BUTALB/APAP/CAFF 50-325-40MG TAB PO PRN ×4 (03:07→23:16)
[2021-11-21] MEDS: HYDROmorphone 0.5 MG/0.5 ML SYRINGE IVP PRN ×6 (03:07→23:46)
[2021-11-21] MEDS: SODIUM CHLORIDE 0.9% IVPB SCH ×2 (03:08→15:59)
[2021-11-21] MEDS: IMIPENEM CILASTATIN IVPB SCH ×2 (03:08→15:59)
[2021-11-21] MEDS: LEVOTHYROXINE 100 MCG TAB PO SCH (06:19)
[2021-11-21] MEDS: SYMBICORT 160-4.5 MCG INHALER INHALATION SCH ×2 (08:15→19:24)
[2021-11-21] MEDS: IPRATROPIUM-ALBUTEROL 3 ML NEB INHALATION SCH ×4 (08:16→19:25)
[2021-11-21] MEDS: METHADONE 10 MG TAB PO SCH ×2 (09:41→20:52)
[2021-11-21] MEDS ORDERED: TIGECYCLINE 100 MG in SODIUM CHLORIDE 0.9% 100 ML IVPB ONE (10:00)
[2021-11-21 10:44] LABS: Basophils # (A) 0.06 X 10*3/uL (0.00-0.10); Basophils % (A) 0.4 %; Eosinophils # (A) 0.27 X 10*3/uL (0.04-0.35); Eosinophils % (A) 1.7 %; HCT 33.6 % (37.2-46.3); HGB 10.1 g/dL (12.0-15.0); Immature Grans, Automated 1.1 %; Lymphocytes # (A) 1.52 X 10*3/uL (0.90-5.00); Lymphocytes % (A) 9.8 %; MCH 26.2 pg (27.0-32.0); MCHC 30.1 g/dL (32.0-37.0); MCV 87.3 fL (80.0-97.0); Monocytes # (A) 1.23 X 10*3/uL (0.20-1.00); NRBC Per 100 WBC 0 /100 WBCS (0.0-0.0); Neutrophils # (A) 12.22 X 10*3/uL (1.80-7.70); Platelet Count 416 X 10*3/uL (140-440); RBC 3.85 X 10*6/uL (4.10-5.20); RDW 16.1 % (11.5-14.5); WBC 15.47 X 10*3/uL (4.50-10.00)
[2021-11-21] MEDS: hydrOXYzine pamoate 25 MG CAP PO SCH ×3 (10:52→23:15)
[2021-11-21] MEDS: HEPARIN SODIUM,PORCINE/PF 5,000 UNIT/0.5 ML SYRINGE SQ SCH ×2 (10:53→23:17)
[2021-11-21] MEDS: PANTOPRAZOLE 40 MG TABLET PO SCH (10:53)
[2021-11-21] MEDS: SODIUM BICARBONATE TAB 650 MG TAB PO SCH (10:53)
[2021-11-21] MEDS: ASPIRIN 81 MG PO SCH (10:53)
[2021-11-21] MEDS: PARoxetine 10 MG TAB PO SCH (10:54)
[2021-11-21] MEDS: LORATADINE 10 MG TAB PO SCH (10:54)
[2021-11-21] MEDS: buPROPion XL 300 MG TAB.ER.24H PO SCH (10:54)
[2021-11-21] MEDS: guaiFENesin 600 MG TABLET.ER PO SCH ×2 (10:54→23:16)
[2021-11-21 10:58] LABS: Magnesium 1.9 mg/dL (1.5-2.4); Phosphorus 2.5 mg/dL (2.4-5.1)
[2021-11-21 10:59] LABS: ALT 36 U/L (8-44); AST 36 U/L (13-35); African American GFR (CKD) 51.6 (60.0-200.0); Albumin 3.1 g/dL (3.8-4.9); Albumin/Globulin Ratio 1.26 (1.60-3.17); Alkaline Phosphatase 147 U/L (41-126); BUN/Creat Ratio 28.17 Ratio (12.00-20.00); Blood Urea Nitrogen 33.8 mg/dL (9.0-27.0); Calcium 8.9 mg/dL (8.7-10.3); Chloride 104 mmol/L (96-109); Globulin 2.4 g/dL (1.6-3.3); Glucose 121 mg/dL (70-110); Non-African American GFR(CKD) 44.5 (60.0-200.0); Sodium 137 mmol/L (135-145); Total Bilirubin <0.15 mg/dL (0.30-1.20); Total Protein 5.5 g/dL (6.2-8.2)
[2021-11-21] MEDS: busPIRone HCl 10 MG TAB PO SCH ×2 (10:59→23:16)
[2021-11-21] MEDS: CHOLESTYRAMINE (WITH SUGAR) 4 GM PACKET PO SCH ×2 (13:01→18:04)
[2021-11-21] MEDS: FERROUS SULFATE 325 MG TAB PO SCH ×2 (13:07→17:27)
--- NOTE | 2021-11-21 14:26 | P.PN ---
Subjective Progress Note Date: 11/21/21 Principal diagnosis: Cough/shortness of breath/phlegm production. 76-year-old female patient who is well-known to our service from previous hospitalizations for recurrent aspiration related pneumonia. Patient has a history of gastrectomy and patient is on TPN for nutritional support with some oral feedings. She has recently been in the hospital, after she had accidentally cut off one of the PICC line ports at home. A new PICC line was placed, patient was discharged home in stable condition to resume TPN and with the home care. Patient's primary care physician Dr. Eli had been trying to get the patient to the [facility] where the patient had her original gastrectomy. Most recently patient had undergone navigational bronchoscopy with biopsies and BAL of the left lower lobe on 10/09/2021 BAL cultures revealed Lesly glabrata, and Mycobacterium abscesses. Patient had received antibiotic infusions in the form of Zosyn. Right lower lobe lung biopsy was nondiagnostic for viable neoplasm, and negative for definitive granulomatous inflammation, left lower lung biopsy was nondiagnostic due to scant cellularity and abundant necrosis. Left lower lung bronchial wash brush tip and brushings were negative for diagnostic malignancy. On 11/17/2021 patient came into the emergency department with shortness of breath, cough, brown-colored phlegm production, decreased appetite, nausea vomiting diarrhea, and pain along the bilateral rib cage wrap around the back. Chest x-ray showed worsening left perihilar and left lower lobe infiltrate, and there was some improvement of the right perihilar increased lung markings. White count was elevated at 15.6, hemoglobin of 11, electrolytes are within normal limits, BUN was 20 creatinine 1.27, alk phos was 236, AST and OT were within normal limits, proBNP was 867 and troponin was less than 0.012, urinalysis showed rare budding yeast, small amount of leuks. COVID-19 influenza A and B were negative Progress note dated 11/19/2021. 76-year-old female seen today, in room 477. She's on room air. She's getting TPN at 30 mL an hour. She is on Zosyn, and azithromycin. Clinically, she is ve ry stable. I recently did a navigational bronchoscopy with biopsies and BAL on this patient, which revealed Lesly glabrata and Mycobacterium abscesses. Biopsies, was negative for neoplasm. The patient was readmitted for possible pneumonia, with worsening infiltrates in the left lung, and improving infiltrate on the right. No new labs today sodium of 137, potassium 4.9, chlorides 106, CO2 23, BUN 29, creatinine 1.27. Blood cultures are negative. A CAT scan of the chest revealed an increase in size and number of cavitary lesions when compared to the previous computed tomography scan done in June of this year. Progress note dated 11/20/2021. 76-year-old female well-known to our service. She seen today again in room 477. She is on room air. She's getting TPN at 50 mL an hour. Her current antibiotics include meropenem and amikacin. The cultures are thus far negative. She was initially on Zosyn and azithromycin. Her antibiotics are being managed by infectious diseases. No new labs today. Clinically, she is feeling only a bit better. Progress note dated 11/21/2021. 76-year-old female seen again in room 477. The patient's on room air. She is receiving TPN. Cultures thus far are negative. Her pro-calcitonin level was relatively low at 0.15. She was upset because she did not receive her morning medications, including her pain medications. She's not having any respiratory distress or difficulty. She's currently on amikacin and imipenem/Cilastatin and Tigecycline. She is also receiving breathing treatments, and Symbicort. Clinically, she stable. I'm not sure why these antibiotics could be given to her at a long-term acute care facility. In my opinion, there is no reason why she needs to be in a acute care hospital. White count 15.47, hemoglobin 10.1, hematocrit 33.6, and platelet count 416,000. Sodium 137, potassium 5, chlorides 104, CO2 23, BUN 34, and creatinine 1.2. Objective - Vital Signs Vital signs: Vital Signs Temp 98 F 11/21/21 08:00 Pulse 100 11/21/21 11:59 Resp 16 11/21/21 08:00 BP 169/72 11/21/21 08:00 Pulse Ox 98 11/21/21 08:00 FiO2 Intake & Output 11/20/21 11/21/21 11/21/21 18:59 06:59 18:59 Intake Total 1431 590 533.333 Balance 1431 590 533.333 Weight 38.102 kg Intake: Intake, IV Titration 1311 533.333 Amount Meropenem 1 gm In Sodium 100 Chloride 0.9% 100 ml @ 33 .3 mls/hr IVPB Q8HR [facility] Rx#:[id number] Mvi, Adult No.4 with Vit 1011 533.333 K 10 ml Trace (Conc-1Ml/ Dose) 1 ml In Amino Acid 5%-D20w+Lytes*E* 1,000 ml @ 50 mls/hr IV .[id number] [facility] Rx#:[id number] Piperacillin-Tazobactam 3 200 .375 gm In Sodium Chloride 0.9% 100 ml @ 25 mls/hr IVPB Q8HR [facility] Rx# :[id number] Oral 120 590 Other: Voiding Method Bedside Commode # Voids 4 1 # Bowel Movements 2 - Exam No acute distress, oriented 3. No respiratory distress, conversational dyspnea, or use of accessory muscles. The patient is on room air. HEENT examination is grossly unremarkable. Neck supple. Full range of motion. No adenopathy thyromegaly or neck vein distention. Cardiovascular examination reveals regular rhythm rate. S1-S2 normal. No S3 or S4. No discernible murmur noted. Heart rate 89 bpm. Lungs reveal scattered mild to moderate rhonchi. No wheezes or crackles. Breath sounds equal bilaterally. Room air saturation 98 %. Abdomen soft bowel sounds are heard. No masses or tenderness. Extremities are intact. No cyanosis clubbing or edema. Skin is without rash or lesion. Neurologic examination is brief but nonfocal. - Labs CBC & Chem 7: 11/21/21 08:10 11/21/21 08:10 Labs: Abnormal Lab Results - Last 24 Hours (Table) 11/20/21 11/20/21 11/20/21 Range/Units 08:04 08:04 08:04 WBC 16.03 H (4.50-10.00) X 10*3/uL RBC 3.82 L (4.10-5.20) X 10*6/uL Hgb 10.1 L (12.0-15.0) g/dL Hct 34.4 L (37.2-46.3) % MCH 26.4 L (27.0-32.0) pg MCHC 29.4 L (32.0-37.0) g/dL RDW 16.4 H (11.5-14.5) % Plt Count 462 H (140-440) X 10*3/uL MPV 9.3 L (9.5-12.2) fL Immature Gran # 0.17 H (0.00-0.04) X 10*3/uL Neutrophils # 12.52 H (1.80-7.70) X 10*3/uL Monocytes # 1.35 H (0.20-1.00) X 10*3/uL BUN 33.3 H (9.0-27.0) mg/dL Est GFR (CKD-EPI)AfAm 47.2 L (60.0-200.0) Est GFR (CKD-EPI)NonAf 40.8 L (60.0-200.0) BUN/Creatinine Ratio 25.81 H (12.00-20.00) Ratio Glucose (70-110) mg/dL Calcium 8.6 L (8.7-10.3) mg/dL Total Bilirubin (0.30-1.20) mg/dL AST (13-35) U/L Alkaline Phosphatase (41-126) U/L C-Reactive Protein 3.00 H (0.00-0.80) mg/dL Total Protein (6.2-8.2) g/dL Albumin (3.8-4.9) g/dL Albumin/Globulin Ratio (1.60-3.17) g/dL Procalcitonin 0.15 H (0.02-0.09) ng/mL 11/21/21 11/21/21 Range/Units 08:10 08:10 WBC 15.47 H (4.50-10.00) X 10*3/uL RBC 3.85 L (4.10-5.20) X 10*6/uL Hgb 10.1 L (12.0-15.0) g/dL Hct 33.6 L (37.2-46.3) % MCH 26.2 L (27.0-32.0) pg MCHC 30.1 L (32.0-37.0) g/dL RDW 16.1 H (11.5-14.5) % Plt Count (140-440) X 10*3/uL MPV (9.5-12.2) fL Immature Gran # 0.17 H (0.00-0.04) X 10*3/uL Neutrophils # 12.22 H (1.80-7.70) X 10*3/uL Monocytes # 1.23 H (0.20-1.00) X 10*3/uL BUN 33.8 H (9.0-27.0) mg/dL Est GFR (CKD-EPI)AfAm 51.6 L (60.0-200.0) Est GFR (CKD-EPI)NonAf 44.5 L (60.0-200.0) BUN/Creatinine Ratio 28.17 H (12.00-20.00) Ratio Glucose 121 H (70-110) mg/dL Calcium (8.7-10.3) mg/dL Total Bilirubin <0.15 L (0.30-1.20) mg/dL AST 36 H (13-35) U/L Alkaline Phosphatase 147 H (41-126) U/L C-Reactive Protein (0.00-0.80) mg/dL Total Protein 5.5 L (6.2-8.2) g/dL Albumin 3.1 L (3.8-4.9) g/dL Albumin/Globulin Ratio 1.26 L (1.60-3.17) g/dL Procalcitonin (0.02-0.09) ng/mL Microbiology - Last 24 Hours (Table) 11/17/21 16:00 Blood Culture - Preliminary Blood No Growth after 72 hours 11/17/21 15:45 Blood Culture - Preliminary Blood No Growth after 72 hours Assessment and Plan Assessment: Shortness of breath, bilateral rib pain, cough related to recurrent aspiration. COVID-19 PCR, influenza A and B were negative. Chest x-ray showed worsening left perihilar and lower lobe infiltrate, and improving right perihilar infiltrate. Patient recently had a navigational bronchoscopy with biopsies on 10/09/2021 which were nondiagnostic for malignancy, BAL cultures showed Lesly glabrata, and Mycobacterium abscesses, culture was sent to the [place] [facility] for identification. Dehydration, related to nausea and vomiting. Chronic pain syndrome, most recently on methadone for pain control. Chronic kidney disease stage III. Malnutrition and failure to thrive. Recurrent aspiration with multiple hospitalizations, patient is currently on TPN for nutritional support in addition to some oral feedings on soft diet. History of gastrectomy. Chronic pain syndrome. Previous history of CVA. History of hypothyroidism. History of spinal stenosis and chronic back pain. History of chronic anemia of chronic disease Anxiety/depression. Plan: Plan dated 11/19/2021. The patient remains on TPN at 30 mL an hour. She's not requiring any supplemental oxygen. The patient's getting breathing treatments, and Symbicort. In addition, the patient is getting Zosyn. Corticosteroids will be discontinued. Additional recommendations and suggestions are forthcoming. Unfortunately, the patient has had ten admissions and discharges already this year to this institution. We will continue to follow make recommendations where appropriate. The patient may be better suited at a long-term acute care facility. Plan dated 11/20/2021. The patient remains on TPN, and does not require any supplemental oxygen. She was seen by infectious disease informatics consultant, and the patient is currently on meropenem and amikacin. Blood cultures are thus far negative. Clinically, she looks very stable. She states that she is only minimally improved. As mentioned previously, the patient has had 10 admissions and discharges this year already. Her prognosis is guarded. We will continue to follow make recommendations, where appropriate. Plan dated 11/21/2021. The patient is on antibiotics as per infectious diseases. The patient is stable from my perspective. The patient does not require any oxygen therapy. Labs, x- rays, medications are reviewed. I'm not sure why this patient could receive these antibiotics and a long-term acute care facility, or long term. There is no reason in my opinion that she needs to be at an acute care hospital. Cultures are thus far negative. We will continue to follow. Prognosis is guarded. As mentioned previously, the patient has had a 10 or 11 admissions to this hospital, this year alone. Time with Patient: Less than 30
[2021-11-21] MEDS: SODIUM CHLORIDE 0.9% 1,000 ML IV SCH (15:59)
[2021-11-21] MEDS: ONDANSETRON ODT 4 MG TAB PO PRN (17:29)
[2021-11-21] MEDS ORDERED: FUROSEMIDE 20 MG TAB PO PRN (18:28)
--- NOTE | 2021-11-21 18:28 | P.PN ---
Subjective Progress Note Date: 11/21/21 On 11/18/2021 patient was seen and examined on the medical floor she is alert and oriented 3 in no apparent distress, she is complaining of cough and shortness of breath otherwise she denies any complaints, patient has a prolonged past medical history with recurrent admissions to [facility] was pneumonia she had a bronchoscopy was Dr. 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 Gregorio infectious disease. She was started on IV antibiotic in the emergency room, will continue with same at this time will resume TPN, consultation for pulmonary and infectious disease were initiated On 11/19/2021 patient was seen and examined on the medical floor she is alert an d oriented 3 in no apparent distress she is complaining of abdominal cramping and diarrhea she is still complaining of cough and shortness of breath otherwise she denies any complaints there is no fever or chills no headache or dizziness no chest pain no nausea or vomiting, no blood in the stools no burning with urination no frequency or urgency and no hematuria. At this time will send a stool sample for C. diff will continue was current management otherwise. On 11/20/2021 patient was seen and examined on the medical floor she is alert and oriented in no distress, she is still complaining of cough and shortness of breath otherwise she denies any complaints there is no fever or chills no h eadache or dizziness no chest pain no nausea or vomiting no abdominal pain no blood in the stools no burning with urination no frequency or urgency no hematuria, patient still complaining of some diarrhea .Will check stools for C. diff On 11/21/2021 patient was seen and examined on the medical floor she is alert and oriented in no distress, she is still complaining of cough and shortness of breath otherwise she denies any complaints there is no fever or chills no headache or dizziness no chest pain no nausea or vomiting no abdominal pain no blood in the stools no burning with urination no frequency or urgency no hematuria, patient still complaining of some diarrhea. Objective - Vital Signs Vital signs: Vital Signs Temp 98 F 11/21/21 08:00 Pulse 100 11/21/21 11:59 Resp 16 11/21/21 08:00 BP 169/72 11/21/21 08:00 Pulse Ox 98 11/21/21 08:00 FiO2 Intake & Output 11/20/21 11/21/21 11/21/21 18:59 06:59 18:59 Intake Total 1431 590 533.333 Balance 1431 590 533.333 Weight 38.102 kg Intake: Intake, IV Titration 1311 533.333 Amount Meropenem 1 gm In Sodium 100 Chloride 0.9% 100 ml @ 33 .3 mls/hr IVPB Q8HR [facility] Rx#:[id number] Mvi, Adult No.4 with Vit 1011 533.333 K 10 ml Trace (Conc-1Ml/ Dose) 1 ml In Amino Acid 5%-D20w+Lytes*E* 1,000 ml @ 50 mls/hr IV .[id number] [facility] Rx#:[id number] Piperacillin-Tazobactam 3 200 .375 gm In Sodium Chloride 0.9% 100 ml @ 25 mls/hr IVPB Q8HR [facility] Rx# :[id number] Oral 120 590 Other: Voiding Method Bedside Commode # Voids 4 1 # Bowel Movements 2 - Exam In general patient is alert and oriented x 3 in no distress HEENT head normocephalic and atraumatic Neck is supple no JVD no goiter no lymphadenopathy no carotid bruit Chest examination reveals a scattered crackles in both lung calixto no wheezing Cardiac exam reveals regular heart sounds S1 and S2 no gallops no murmurs Abdomen is soft nontender no organomegaly with normal bowel sounds Extremity exam reveals no edema no cyanosis or clubbing Neurological examination reveals no gross focal deficits - Labs CBC & Chem 7: 11/21/21 08:10 11/21/21 08:10 Labs: Abnormal Lab Results - Last 24 Hours (Table) 11/20/21 11/20/21 11/20/21 Range/Units 08:04 08:04 08:04 WBC 16.03 H (4.50-10.00) X 10*3/uL RBC 3.82 L (4.10-5.20) X 10*6/uL Hgb 10.1 L (12.0-15.0) g/dL Hct 34.4 L (37.2-46.3) % MCH 26.4 L (27.0-32.0) pg MCHC 29.4 L (32.0-37.0) g/dL RDW 16.4 H (11.5-14.5) % Plt Count 462 H (140-440) X 10*3/uL MPV 9.3 L (9.5-12.2) fL Immature Gran # 0.17 H (0.00-0.04) X 10*3/uL Neutrophils # 12.52 H (1.80-7.70) X 10*3/uL Monocytes # 1.35 H (0.20-1.00) X 10*3/uL BUN 33.3 H (9.0-27.0) mg/dL Est GFR (CKD-EPI)AfAm 47.2 L (60.0-200.0) Est GFR (CKD-EPI)NonAf 40.8 L (60.0-200.0) BUN/Creatinine Ratio 25.81 H (12.00-20.00) Ratio Glucose (70-110) mg/dL Calcium 8.6 L (8.7-10.3) mg/dL Total Bilirubin (0.30-1.20) mg/dL AST (13-35) U/L Alkaline Phosphatase (41-126) U/L C-Reactive Protein 3.00 H (0.00-0.80) mg/dL Total Protein (6.2-8.2) g/dL Albumin (3.8-4.9) g/dL Albumin/Globulin Ratio (1.60-3.17) g/dL Procalcitonin 0.15 H (0.02-0.09) ng/mL 11/21/21 11/21/21 Range/Units 08:10 08:10 WBC 15.47 H (4.50-10.00) X 10*3/uL RBC 3.85 L (4.10-5.20) X 10*6/uL Hgb 10.1 L (12.0-15.0) g/dL Hct 33.6 L (37.2-46.3) % MCH 26.2 L (27.0-32.0) pg MCHC 30.1 L (32.0-37.0) g/dL RDW 16.1 H (11.5-14.5) % Plt Count (140-440) X 10*3/uL MPV (9.5-12.2) fL Immature Gran # 0.17 H (0.00-0.04) X 10*3/uL Neutrophils # 12.22 H (1.80-7.70) X 10*3/uL Monocytes # 1.23 H (0.20-1.00) X 10*3/uL BUN 33.8 H (9.0-27.0) mg/dL Est GFR (CKD-EPI)AfAm 51.6 L (60.0-200.0) Est GFR (CKD-EPI)NonAf 44.5 L (60.0-200.0) BUN/Creatinine Ratio 28.17 H (12.00-20.00) Ratio Glucose 121 H (70-110) mg/dL Calcium (8.7-10.3) mg/dL Total Bilirubin <0.15 L (0.30-1.20) mg/dL AST 36 H (13-35) U/L Alkaline Phosphatase 147 H (41-126) U/L C-Reactive Protein (0.00-0.80) mg/dL Total Protein 5.5 L (6.2-8.2) g/dL Albumin 3.1 L (3.8-4.9) g/dL Albumin/Globulin Ratio 1.26 L (1.60-3.17) g/dL Procalcitonin (0.02-0.09) ng/mL Microbiology - Last 24 Hours (Table) 11/17/21 16:00 Blood Culture - Preliminary Blood No Growth after 72 hours 11/17/21 15:45 Blood Culture - Preliminary Blood No Growth after 72 hours Assessment and Plan Plan: Recurrent pneumonia was cough and shortness of breath Evidence of dehydration related to nausea vomiting Malnutrition related to previous gastrectomy maintained on TPN Recurrent aspiration pneumonia Previous history of stroke Underlying history of hypothyroidism Underlying history of spinal stenosis with chronic back pain Underlying history of depression with anxiety At this time patient is admitted to medical floor She was started on IV antibiotic Zosyn and Zithromax in the emergency room will continue with same at this time Consultation for pulmonary and infectious disease initiated For DVT prophylaxis patient on subcu heparin
[2021-11-21] MEDS: MIRTAZAPINE 45 MG TABLET PO SCH (23:16)
[2021-11-22] MEDS: IMIPENEM CILASTATIN IVPB SCH ×2 (02:48→17:13)
[2021-11-22] MEDS: SODIUM CHLORIDE 0.9% IVPB SCH ×3 (02:48→17:13)
[2021-11-22] MEDS: TIGECYCLINE 50 MG in SODIUM CHLORIDE 0.9% 100 ML IVPB SCH ×3 (03:38→22:27)
[2021-11-22] MEDS: HYDROmorphone 0.5 MG/0.5 ML SYRINGE IVP PRN ×5 (03:42→20:13)
[2021-11-22] MEDS: AMIKACIN SULFATE IVPB SCH (04:39)
[2021-11-22] MEDS: LEVOTHYROXINE 100 MCG TAB PO SCH (06:16)
[2021-11-22] MEDS: BUTALB/APAP/CAFF 50-325-40MG TAB PO PRN ×3 (06:16→18:16)
[2021-11-22] MEDS: MVI, ADULT NO.4 WITH VIT K 10 ML, TRACE (CONC-1ML/DOSE) 1 ML in AMINO ACID 5%-D20W+LYTE... IV SCH ×3 (07:39)
[2021-11-22] MEDS: SYMBICORT 160-4.5 MCG INHALER INHALATION SCH ×2 (08:58→20:19)
[2021-11-22] MEDS: IPRATROPIUM-ALBUTEROL 3 ML NEB INHALATION SCH ×4 (08:59→20:19)
[2021-11-22] MEDS: hydrOXYzine pamoate 25 MG CAP PO SCH ×3 (09:13→20:09)
[2021-11-22] MEDS: busPIRone HCl 10 MG TAB PO SCH ×2 (09:14→20:09)
[2021-11-22] MEDS: PANTOPRAZOLE 40 MG TABLET PO SCH (09:14)
[2021-11-22] MEDS: buPROPion XL 300 MG TAB.ER.24H PO SCH (09:14)
[2021-11-22] MEDS: ASPIRIN 81 MG PO SCH (09:14)
[2021-11-22] MEDS: PARoxetine 10 MG TAB PO SCH (09:14)
[2021-11-22] MEDS: guaiFENesin 600 MG TABLET.ER PO SCH ×2 (09:14→20:10)
[2021-11-22] MEDS: SODIUM BICARBONATE TAB 650 MG TAB PO SCH (09:14)
[2021-11-22] MEDS: METHADONE 10 MG TAB PO SCH ×2 (09:14→20:10)
[2021-11-22] MEDS: LORATADINE 10 MG TAB PO SCH (09:14)
[2021-11-22 09:17] LABS: African American GFR (CKD) 53 (>60 ml/min/1.73 sqM); Anion Gap 6 mmol/L; Blood Urea Nitrogen 42 mg/dL (7-17); Calcium 8.9 mg/dL (8.4-10.2); Carbon Dioxide 25 mmol/L (22-30); Chloride 105 mmol/L (98-107); Glucose 136 mg/dL (74-99); Magnesium 1.9 mg/dL (1.6-2.3); Non-African American GFR(CKD) 46 (>60 ml/min/1.73 sqM); Phosphorus 3.4 mg/dL (2.5-4.5); Potassium 5.6 mmol/L (3.5-5.1); Sodium 136 mmol/L (137-145)
[2021-11-22] MEDS: HEPARIN SODIUM,PORCINE/PF 5,000 UNIT/0.5 ML SYRINGE SQ SCH ×2 (09:18→20:11)
[2021-11-22] MEDS: CHOLESTYRAMINE (WITH SUGAR) 4 GM PACKET PO SCH ×2 (09:50→18:17)
--- NOTE | 2021-11-22 11:46 | P.PN ---
Subjective Progress Note Date: 11/22/21 Principal diagnosis: Cough, shortness of breath On 11/22/2021 patient seen in follow-up on medical surgical floor. She is resting comfortably in bed, no signs of any respiratory distress. Breathing comfortably. Room air pulse ox is 90%, she is afebrile, patient is on combina tion of antibiotics with amikacin, tigecycline, and Primaxin for Mycobacterium abscesses. Remains on nebulized bronchodilators. She is 89 able to bring up any phlegm. Blood cultures have shown no growth. Serum pro calcitonin level is low at 0.15, CRP is 3.0. Today's labs have been noted, potassium is 5.6, sodium is 136, B1 is 41, creatinine is 1.18. Patient remains on TPN for nutritional support in addition to a soft diet vital signs have been stable, she's had no fever while inpatient, blood pressure is been stable, no altered mentation. Objective - Vital Signs Vital signs: Vital Signs Temp 97.5 F L 11/22/21 07:30 Pulse 92 11/22/21 07:30 Resp 17 11/22/21 07:30 BP 157/82 11/22/21 07:30 Pulse Ox 96 11/22/21 09:30 FiO2 Intake & Output 11/21/21 11/22/21 11/22/21 18:59 06:59 18:59 Intake Total 302.355 6782.5 Output Total 0 1200 Balance 533.333 -1200 1007.5 Intake: Intake, IV Titration 382.036 4748.5 Amount Mvi, Adult No.4 with Vit 726.764 5323.5 K 10 ml Trace (Conc-1Ml/ Dose) 1 ml In Amino Acid 5%-D20w+Lytes*E* 1,000 ml @ 50 mls/hr IV .[id number] [facility] Rx#:[id number] Output: Urine 1200 Urine/Stool Mix 0 Other: Voiding Method Bedside Commode # Voids 2 2 # Bowel Movements 2 - Exam GENERAL EXAM: Alert, very pleasant, 76-year-old white female, cachectic, on room air pulse ox of 98% but appears to be in no acute distress, on room air com fortable in no apparent distress. HEAD: Normocephalic/atraumatic. EYES: Normal reaction of pupils, equal size. Conjunctiva pink, sclera white. NOSE: Clear with pink turbinates. THROAT: No erythema or exudates. NECK: No masses, no JVD, no thyroid enlargement, no adenopathy. CHEST: No chest wall deformity. Symmetrical expansion. LUNGS: Equal air entry with no crackles, wheeze, rhonchi or dullness. CVS: Regular rate and rhythm, normal S1 and S2, no gallops, no murmurs, no rubs ABDOMEN: Soft, nontender. No hepatosplenomegaly, normal bowel sounds, no guarding or rigidity. EXTREMITIES: No clubbing, no edema, no cyanosis, 2+ pulses and upper and lower extremities. MUSCULOSKELETAL: Muscle strength and tone normal. SPINE: No scoliosis or deformity SKIN: No rashes CENTRAL NERVOUS SYSTEM: Alert and oriented -3. No focal deficits, tone is normal in all 4 extremities. PSYCHIATRIC: Alert and oriented -3. Appropriate affect. Intact judgment and insight. - Labs CBC & Chem 7: 11/21/21 08:10 11/22/21 08:28 Labs: Abnormal Lab Results - Last 24 Hours (Table) 11/22/21 Range/Units 08:28 Sodium 136 L (137-145) mmol/L Potassium 5.6 H (3.5-5.1) mmol/L BUN 42 H (7-17) mg/dL Creatinine 1.18 H (0.52-1.04) mg/dL Glucose 136 H (74-99) mg/dL Microbiology - Last 24 Hours (Table) 11/17/21 16:00 Blood Culture - Preliminary Blood No Growth after 96 hours 11/17/21 15:45 Blood Culture - Preliminary Blood No Growth after 96 hours Assessment and Plan Plan: #1. Shortness of breath, ilateral rib pain, cough related to recurrent aspiration. COVID-19 PCR, influenza A and B were negative. Chest x-ray showed worsening left perihilar and lower lobe infiltrate, and improving right perihilar infiltrate. 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 BAL culture was sent to the [place] [facility] for identification. ID services on the case, current antibiotics include amikacin, tigecycline, and primaxin #2. Dehydration, related to nausea and vomiting, #3. Chronic pain syndrome, most recently on methadone for pain control #4. Chronic kidney disease stage III at baseline #5. Malnutrition and failure to thrive #6. Recurrent aspiration with multiple hospitalizations, patient is currently on TPN for nutritional support in addition to some oral feedings on soft diet #6. History of gastrectomy #7. Chronic pain syndrome #8. Previous history of CVA #9. History of hypothyroidism #10. History of spinal stenosis and chronic back pain #11. History of chronic anemia of chronic disease #12. Anxiety/depression Plan: Continue antibiotics per ID service recommendations Clinically patient is fairly asymptomatic, breathing comfortable, remains on room air, she's had no fever or chills Continue TPN for nutritional support Pain control Continue breathing treatments GI and DVT prophylaxis Continue monitoring electrolytes and renal profile I have personally seen and examined the patient, performed the documentation and the assessment and plan as written. Number of minutes spent on the visit: [15] Time with Patient: Less than 30
--- NOTE | 2021-11-22 13:04 | P.PN ---
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 On today's evaluation that is 11/21/2021, the patient remains to be afebrile, the patient is breathing comfortably on room air, the patient is still complaining of lower rib cage pain and also diarrhea , however no vomiting no urinary symptoms Objective - Vital Signs Vital signs: Vital Signs Temp 97.4 F L 11/21/21 15:25 Pulse 94 11/21/21 15:25 Resp 18 11/21/21 15:25 BP 117/80 11/21/21 15:25 Pulse Ox 98 11/21/21 15:25 FiO2 Intake & Output 11/20/21 11/21/21 11/21/21 18:59 06:59 18:59 Intake Total 1431 590 533.333 Balance 1431 590 533.333 Weight 38.102 kg Intake: Intake, IV Titration 1311 533.333 Amount Meropenem 1 gm In Sodium 100 Chloride 0.9% 100 ml @ 33 .3 mls/hr IVPB Q8HR [facility] Rx#:[id number] Mvi, Adult No.4 with Vit 1011 533.333 K 10 ml Trace (Conc-1Ml/ Dose) 1 ml In Amino Acid 5%-D20w+Lytes*E* 1,000 ml @ 50 mls/hr IV .[id number] [facility] Rx#:[id number] Piperacillin-Tazobactam 3 200 .375 gm In Sodium Chloride 0.9% 100 ml @ 25 mls/hr IVPB Q8HR [facility] Rx# :[id number] Oral 120 590 Other: Voiding Method Bedside Commode # Voids 4 1 # Bowel Movements 2 - Exam GENERAL DESCRIPTION: An elderly female lying in bed in no distress RESPIRATORY SYSTEM: Unlabored breathing , decreased breath sounds at bases HEART: S1 S2 regular rate and rhythm , ABDOMEN: Soft , no tenderness EXTREMITIES: No edema feet - Labs CBC & Chem 7: 11/21/21 08:10 11/22/21 08:28 Labs: Abnormal Lab Results - Last 24 Hours (Table) 11/21/21 11/21/21 Range/Units 08:10 08:10 WBC 15.47 H (4.50-10.00) X 10*3/uL RBC 3.85 L (4.10-5.20) X 10*6/uL Hgb 10.1 L (12.0-15.0) g/dL Hct 33.6 L (37.2-46.3) % MCH 26.2 L (27.0-32.0) pg MCHC 30.1 L (32.0-37.0) g/dL RDW 16.1 H (11.5-14.5) % Immature Gran # 0.17 H (0.00-0.04) X 10*3/uL Neutrophils # 12.22 H (1.80-7.70) X 10*3/uL Monocytes # 1.23 H (0.20-1.00) X 10*3/uL BUN 33.8 H (9.0-27.0) mg/dL Est GFR (CKD-EPI)AfAm 51.6 L (60.0-200.0) Est GFR (CKD-EPI)NonAf 44.5 L (60.0-200.0) BUN/Creatinine Ratio 28.17 H (12.00-20.00) Ratio Glucose 121 H (70-110) mg/dL Total Bilirubin <0.15 L (0.30-1.20) mg/dL AST 36 H (13-35) U/L Alkaline Phosphatase 147 H (41-126) U/L Total Protein 5.5 L (6.2-8.2) g/dL Albumin 3.1 L (3.8-4.9) g/dL Albumin/Globulin Ratio 1.26 L (1.60-3.17) g/dL Microbiology - Last 24 Hours (Table) 11/17/21 16:00 Blood Culture - Preliminary Blood No Growth after 72 hours 11/17/21 15:45 Blood Culture - Preliminary Blood No Growth after 72 hours Assessment and Plan (1) Pneumonia Current Visit: Yes Status: Acute Code(s): J18.9 - PNEUMONIA, UNSPECIFIED ORGANISM SNOMED Code(s): 079328591 Plan: 1-patient presented to hospital with shortness of breath and cough in this patient did have evidence of cavitating pneumonia on the chest x-ray with recent bronchoscopy culture positive for Mycobacterium abscessus likely the etiology 2-detailed discussion with the micro lab sensitivities has not been finalized and they are not sure when it will be back 3-patient did have a chest CT on 11/19/2021 with evidence of increase in size and number of cavitating lesion concerning for necrotizing pneumonia 4patient to continue with amikacin pharmacy to dose along while watching his kidney function closely along with with imipenem and tigecycline 5we will add Questran for symptomatic relief of her diarrhea Time with Patient: Less than 30
--- NOTE | 2021-11-22 13:05 | P.PN ---
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 On today's evaluation that is 11/22/2021, the patient denies any fever or chills, the patient is breathing comfortably on room air, the patient did have improvement in her diarrhea , patient denies any worsening cough or sputum production, no vomiting no urinary symptoms Objective - Vital Signs Vital signs: Vital Signs Temp 97.5 F L 11/22/21 07:30 Pulse 92 11/22/21 07:30 Resp 17 11/22/21 07:30 BP 157/82 11/22/21 07:30 Pulse Ox 96 11/22/21 09:30 FiO2 Intake & Output 11/21/21 11/22/21 11/22/21 18:59 06:59 18:59 Intake Total 424.769 6612.5 Output Total 0 1200 Balance 533.333 -1200 1007.5 Intake: Intake, IV Titration 281.674 6126.5 Amount Mvi, Adult No.4 with Vit 379.563 3824.5 K 10 ml Trace (Conc-1Ml/ Dose) 1 ml In Amino Acid 5%-D20w+Lytes*E* 1,000 ml @ 50 mls/hr IV .[id number] [facility] Rx#:[id number] Output: Urine 1200 Urine/Stool Mix 0 Other: Voiding Method Bedside Commode # Voids 2 2 # Bowel Movements 2 - Exam GENERAL DESCRIPTION: An elderly female lying in bed in no distress RESPIRATORY SYSTEM: Unlabored breathing , decreased breath sounds at bases HEART: S1 S2 regular rate and rhythm , ABDOMEN: Soft , no tenderness EXTREMITIES: No edema feet - Labs CBC & Chem 7: 11/21/21 08:10 11/22/21 08:28 Labs: Abnormal Lab Results - Last 24 Hours (Table) 11/22/21 Range/Units 08:28 Sodium 136 L (137-145) mmol/L Potassium 5.6 H (3.5-5.1) mmol/L BUN 42 H (7-17) mg/dL Creatinine 1.18 H (0.52-1.04) mg/dL Glucose 136 H (74-99) mg/dL Microbiology - Last 24 Hours (Table) 11/17/21 16:00 Blood Culture - Preliminary Blood No Growth after 96 hours 11/17/21 15:45 Blood Culture - Preliminary Blood No Growth after 96 hours Assessment and Plan (1) Pneumonia Current Visit: Yes Status: Acute Code(s): J18.9 - PNEUMONIA, UNSPECIFIED O RGANISM SNOMED Code(s): 228666898 Plan: 1-patient presented to hospital with shortness of breath and cough in this patient did have evidence of cavitating pneumonia on the chest x-ray with recent bronchoscopy culture positive for Mycobacterium abscessus likely the etiology 2-detailed discussion with the micro lab sensitivities has not been finalized and they are not sure when it will be back 3-patient did have a chest CT on 11/19/2021 with evidence of increase in size and number of cavitating lesion concerning for necrotizing pneumonia 4patient to continue with amikacin pharmacy to dose along while watching his kidney function closely along with with imipenem and tigecycline, will need long-term outpatient IV antibiotic therapy 5patient is asymptomatic have responded to Questran continued as needed Time with Patient: Less than 30
--- NOTE | 2021-11-22 13:33 | P.PN ---
Subjective Progress Note Date: 11/22/21 On 11/18/2021 patient was seen and examined on the medical floor she is alert and oriented 3 in no apparent distress, she is complaining of cough and shortness of breath otherwise she denies any complaints, patient has a prolonged past medical history with recurrent admissions to assess Hospital was pneumonia she had a bronchoscopy was Dr. 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 Gregorio infectious disease. She was started on IV antibiotic in the emergency room, will continue with same at this time will resume TPN, consultation for pulmonary and infectious disease were initiated On 11/19/2021 patient was seen and examined on the medical floor she is alert an d oriented 3 in no apparent distress she is complaining of abdominal cramping and diarrhea she is still complaining of cough and shortness of breath otherwise she denies any complaints there is no fever or chills no headache or dizziness no chest pain no nausea or vomiting, no blood in the stools no burning with urination no frequency or urgency and no hematuria. At this time will send a stool sample for C. diff will continue was current management otherwise. On 11/20/2021 patient was seen and examined on the medical floor she is alert and oriented in no distress, she is still complaining of cough and shortness of breath otherwise she denies any complaints there is no fever or chills no h eadache or dizziness no chest pain no nausea or vomiting no abdominal pain no blood in the stools no burning with urination no frequency or urgency no hematuria, patient still complaining of some diarrhea .Will check stools for C. diff On 11/21/2021 patient was seen and examined on the medical floor she is alert and oriented in no distress, she is still complaining of cough and shortness of breath otherwise she denies any complaints there is no fever or chills no headache or dizziness no chest pain no nausea or vomiting no abdominal pain no blood in the stools no burning with urination no frequency or urgency no hematuria, patient still complaining of some diarrhea. On 11/22/2021 patient was seen and examined on the medical floor she is alert and oriented 3 in no apparent distress she is complaining of abdominal pain and cramping otherwise she denies any complaints at this time there is no fever or chills no headache or dizziness no chest pain no shortness of breath no cough no nausea or vomiting no blood in the stools no burning with urination frequency or urgency and no hematuria Objective - Vital Signs Vital signs: Vital Signs Temp 97.5 F L 11/22/21 07:30 Pulse 92 11/22/21 07:30 Resp 17 11/22/21 07:30 BP 157/82 11/22/21 07:30 Pulse Ox 98 11/22/21 07:30 FiO2 Intake & Output 11/21/21 11/22/21 11/22/21 18:59 06:59 18:59 Intake Total 089.965 5350.5 Output Total 0 1200 Balance 533.333 -1200 1007.5 Intake: Intake, IV Titration 406.119 7744.5 Amount Mvi, Adult No.4 with Vit 563.256 0090.5 K 10 ml Trace (Conc-1Ml/ Dose) 1 ml In Amino Acid 5%-D20w+Lytes*E* 1,000 ml @ 50 mls/hr IV .[id number] [facility] Rx#:[id number] Output: Urine 1200 Urine/Stool Mix 0 Other: Voiding Method Bedside Commode # Voids 2 2 # Bowel Movements 2 - Exam In general patient is alert and oriented x 3 in no distress HEENT head normocephalic and atraumatic Neck is supple no JVD no goiter no lymphadenopathy no carotid bruit Chest examination reveals a scattered crackles in both lung calixto no wheezing Cardiac exam reveals regular heart sounds S1 and S2 no gallops no murmurs Abdomen is soft nontender no organomegaly with normal bowel sounds Extremity exam reveals no edema no cyanosis or clubbing Neurological examination reveals no gross focal deficits - Labs CBC & Chem 7: 11/21/21 08:10 11/22/21 08:28 Labs: Abnormal Lab Results - Last 24 Hours (Table) 11/21/21 11/21/21 Range/Units 08:10 08:10 WBC 15.47 H (4.50-10.00) X 10*3/uL RBC 3.85 L (4.10-5.20) X 10*6/uL Hgb 10.1 L (12.0-15.0) g/dL Hct 33.6 L (37.2-46.3) % MCH 26.2 L (27.0-32.0) pg MCHC 30.1 L (32.0-37.0) g/dL RDW 16.1 H (11.5-14.5) % Immature Gran # 0.17 H (0.00-0.04) X 10*3/uL Neutrophils # 12.22 H (1.80-7.70) X 10*3/uL Monocytes # 1.23 H (0.20-1.00) X 10*3/uL BUN 33.8 H (9.0-27.0) mg/dL Est GFR (CKD-EPI)AfAm 51.6 L (60.0-200.0) Est GFR (CKD-EPI)NonAf 44.5 L (60.0-200.0) BUN/Creatinine Ratio 28.17 H (12.00-20.00) Ratio Glucose 121 H (70-110) mg/dL Total Bilirubin <0.15 L (0.30-1.20) mg/dL AST 36 H (13-35) U/L Alkaline Phosphatase 147 H (41-126) U/L Total Protein 5.5 L (6.2-8.2) g/dL Albumin 3.1 L (3.8-4.9) g/dL Albumin/Globulin Ratio 1.26 L (1.60-3.17) g/dL Microbiology - Last 24 Hours (Table) 11/17/21 16:00 Blood Culture - Preliminary Blood No Growth after 96 hours 11/17/21 15:45 Blood Culture - Preliminary Blood No Growth after 96 hours Assessment and Plan Plan: Recurrent pneumonia was cough and shortness of breath Evidence of dehydration related to nausea vomiting Malnutrition related to previous gastrectomy maintained on TPN Recurrent aspiration pneumonia Previous history of stroke Underlying history of hypothyroidism Underlying history of spinal stenosis with chronic back pain Underlying history of depression with anxiety At this time patient is admitted to medical floor She was started on IV antibiotic Zosyn and Zithromax in the emergency room will continue with same at this time Consultation for pulmonary and infectious disease initiated For DVT prophylaxis patient on subcu heparin
--- NOTE | 2021-11-22 15:10 | XR ---
2 view abdomen HISTORY: Abdominal pain 2 views the abdomen on 3 images, correlation to prior exam 07/04/2021 Postop changes are stable. Patchy densities present within the bilateral lungs. Difficult to exclude basilar effusions. No evident bowel obstruction or pneumoperitoneum. No pathologic calcification. Het erotopic new bone formation present about the left hip. IMPRESSION: Correlate for pneumonia
[2021-11-22] MEDS: SODIUM CHLORIDE 0.9% 1,000 ML IV SCH (17:13)
[2021-11-22] MEDS: FERROUS SULFATE 325 MG TAB PO SCH (17:19)
[2021-11-22] MEDS: MIRTAZAPINE 45 MG TABLET PO SCH (22:27)
[2021-11-23] MEDS: HYDROmorphone 0.5 MG/0.5 ML SYRINGE IVP PRN ×6 (00:33→21:52)
[2021-11-23] MEDS ORDERED: SODIUM CHLORIDE IV SCH ×7 (03:00)
[2021-11-23] MEDS ORDERED: MAGNESIUM SULFATE IV SCH ×7 (03:00)
[2021-11-23] MEDS ORDERED: [UNRECOGNIZED DRUG - OTHER] IV SCH ×7 (03:00)
[2021-11-23] MEDS: SODIUM CHLORIDE 0.9% IVPB SCH ×2 (06:18→17:17)
[2021-11-23] MEDS: IMIPENEM CILASTATIN IVPB SCH ×2 (06:18→17:17)
[2021-11-23] MEDS: LEVOTHYROXINE 100 MCG TAB PO SCH (07:38)
[2021-11-23] MEDS: MVI, ADULT NO.4 WITH VIT K 10 ML, TRACE (CONC-1ML/DOSE) 1 ML in AMINO ACID 5%-D20W+LYTE... IV SCH ×3 (07:38)
[2021-11-23] MEDS: IPRATROPIUM-ALBUTEROL 3 ML NEB INHALATION SCH ×4 (07:57→20:28)
[2021-11-23] MEDS: SYMBICORT 160-4.5 MCG INHALER INHALATION SCH ×2 (07:57→20:27)
[2021-11-23 08:48] LABS: ALT 23 U/L (4-34); AST 22 U/L (14-36); African American GFR (CKD) 52 (>60 ml/min/1.73 sqM); Albumin 3.1 g/dL (3.5-5.0); Albumin/Globulin Ratio 1.1; Alkaline Phosphatase 167 U/L (38-126); Anion Gap 7 mmol/L; Blood Urea Nitrogen 56 mg/dL (7-17); Carbon Dioxide 26 mmol/L (22-30); Chloride 100 mmol/L (98-107); Globulin 2.9 g/dL; Glucose 86 mg/dL (74-99); Non-African American GFR(CKD) 45 (>60 ml/min/1.73 sqM); Phosphorus 4.5 mg/dL (2.5-4.5); Sodium 133 mmol/L (137-145); Total Bilirubin 0.2 mg/dL (0.2-1.3)
[2021-11-23] MEDS: busPIRone HCl 10 MG TAB PO SCH ×2 (08:50→20:34)
--- NOTE | 2021-11-23 08:50 | US ---
EXAMINATION TYPE: US abdomen complete DATE OF EXAM: 11/23/2021 COMPARISON: Ultrasound kidneys 11/06/2021 CLINICAL HISTORY: abdominal pain. TECHNIQUE: Multiple sonographic images of the abdomen are obtained. FINDINGS: EXAM MEASUREMENTS: Liver Length: 13.8 cm Gallbladder Wall: 0.2 cm Spleen: 9.5 cm Right Kidney: 6.6 x 2.6 x 3.1 cm Left Kidney: 8.1 x 4.2 x 4.2 cm Pancreas: duct = 0.2cm Liver: wnl Gallbladder: no evidence of stones Evidence for sonographic Almaguer's sign: no CBD: Obscured by overlying bowel gas Spleen: wnl Right Kidney: small in size Left Kidney: small in size Upper IVC: wnl Abd Aorta: calcifications noted The liver is homogenous. The intrahepatic portion of the IVC and proximal abdominal aorta are within normal limits. There is no evidence of cholelithiasis. Common bile duct is unremarkable. The visu alized portions of the pancreas are homogenous. The spleen is unremarkable. Kidneys are symmetric a nd free of hydronephrosis. No renal lesions are seen. IMPRESSION: 1. No evidence for acute abdominal process. 2. Atherosclerosis of the aorta.
[2021-11-23] MEDS: METHADONE 10 MG TAB PO SCH ×2 (08:51→20:34)
[2021-11-23] MEDS: SODIUM BICARBONATE TAB 650 MG TAB PO SCH (08:51)
[2021-11-23] MEDS: ASPIRIN 81 MG PO SCH (08:51)
[2021-11-23] MEDS: LORATADINE 10 MG TAB PO SCH (08:51)
[2021-11-23] MEDS: buPROPion XL 300 MG TAB.ER.24H PO SCH (08:51)
[2021-11-23] MEDS: hydrOXYzine pamoate 25 MG CAP PO SCH ×3 (08:51→21:51)
[2021-11-23] MEDS: guaiFENesin 600 MG TABLET.ER PO SCH ×2 (08:51→20:34)
[2021-11-23] MEDS: HEPARIN SODIUM,PORCINE/PF 5,000 UNIT/0.5 ML SYRINGE SQ SCH ×3 (08:51→20:36)
[2021-11-23] MEDS: PARoxetine 10 MG TAB PO SCH (08:53)
[2021-11-23] MEDS: PANTOPRAZOLE 40 MG TABLET PO SCH (08:53)
[2021-11-23] MEDS ORDERED: INSULIN REGULAR 100 UNIT/ML VIAL (IV) IV ONE (09:08)
[2021-11-23] MEDS ORDERED: DEXTROSE 50% SYRINGE 50 ML IVP STA (09:08)
[2021-11-23] MEDS ORDERED: CALCIUM GLUCONATE IN NACL 1 GM in SALINE 1 100ML.BAG IVPB ONE (09:10)
[2021-11-23] MEDS: predniSONE 20 MG TAB PO SCH (11:38)
[2021-11-23] MEDS: CHOLESTYRAMINE (WITH SUGAR) 4 GM PACKET PO SCH ×2 (11:39→17:47)
--- NOTE | 2021-11-23 11:41 | P.PN ---
Subjective Progress Note Date: 11/23/21 Principal diagnosis: Cough, shortness of breath On 11/22/2021 patient seen in follow-up on medical surgical floor. She is resting comfortably in bed, no signs of any respiratory distress. Breathing comfortably. Room air pulse ox is 90%, she is afebrile, patient is on combina tion of antibiotics with amikacin, tigecycline, and Primaxin for Mycobacterium abscesses. Remains on nebulized bronchodilators. She is 89 able to bring up any phlegm. Blood cultures have shown no growth. Serum pro calcitonin level is low at 0.15, CRP is 3.0. Today's labs have been noted, potassium is 5.6, sodium is 136, B1 is 41, creatinine is 1.18. Patient remains on TPN for nutritional support in addition to a soft diet vital signs have been stable, she's had no fever while inpatient, blood pressure is been stable, no altered mentation. On 11/23/2021 patient seen in follow-up on medical surgical floor. She is resting in bed, still complains of chest discomfort with deep breathing and coughing along the lower bilateral ribs. Does not appear to be in any acute distress, on room air. Her cough was dry, noncongested. She has not been able to provide a sputum sample, she remains on a combination of antibiotics including tigecycline, Primaxin, and amikacin for mycobacterial pulmonary infection. ID service is following. Vitals have been stable, today's labs have been reviewed, her potassium level has been on the rise, 5.6 on yesterday's labs, and at 6.0 on today's labs, sodium is 133, BUN is 56, creatinine is 1.2. Pro calcitonin level was 0.15. Patient remains on TPN with some oral feedings. We spoke to the pharmacist on duty today, and asked them to review the elect rolytes and remove the potassium from the TPN solution. Hyperkalemia will be treated per protocol and BMP will be rechecked. Objective - Vital Signs Vital signs: Vital Signs Temp 98.3 F 11/23/21 08:00 Pulse 92 11/23/21 08:00 Resp 15 11/23/21 08:00 BP 172/88 11/23/21 08:00 Pulse Ox 98 11/23/21 08:00 FiO2 Intake & Output 11/22/21 11/23/21 11/23/21 18:59 06:59 18:59 Intake Total 1007.5 1011 Balance 1007.5 1011 Weight 38.102 kg Intake: Intake, IV Titration 1007.5 1011 Amount Mvi, Adult No.4 with Vit 1007.5 1011 K 10 ml Trace (Conc-1Ml/ Dose) 1 ml In Amino Acid 5%-D20w+Lytes*E* 1,000 ml @ 50 mls/hr IV .[id number] [facility] Rx#:[id number] Other: Voiding Method Bedside Commode # Voids 5 3 # Bowel Movements 1 2 - Exam GENERAL EXAM: Alert, very pleasant, 76-year-old white female, cachectic, on room air pulse ox of 98% but appears to be in no acute distress, on room air c omfortable in no apparent distress. HEAD: Normocephalic/atraumatic. EYES: Normal reaction of pupils, equal size. Conjunctiva pink, sclera white. NOSE: Clear with pink turbinates. THROAT: No erythema or exudates. NECK: No masses, no JVD, no thyroid enlargement, no adenopathy. CHEST: No chest wall deformity. Symmetrical expansion. LUNGS: Equal air entry with no crackles, wheeze, rhonchi or dullness. CVS: Regular rate and rhythm, normal S1 and S2, no gallops, no murmurs, no rubs ABDOMEN: Soft, nontender. No hepatosplenomegaly, normal bowel sounds, no guarding or rigidity. EXTREMITIES: No clubbing, no edema, no cyanosis, 2+ pulses and upper and lower extremities. MUSCULOSKELETAL: Muscle strength and tone normal. SPINE: No scoliosis or deformity SKIN: No rashes CENTRAL NERVOUS SYSTEM: Alert and oriented -3. No focal deficits, tone is normal in all 4 extremities. PSYCHIATRIC: Alert and oriented -3. Appropriate affect. Intact judgment and insight. - Labs CBC & Chem 7: 11/21/21 08:10 11/23/21 08:00 Labs: Abnormal Lab Results - Last 24 Hours (Table) 11/23/21 Range/Units 08:00 Sodium 133 L (137-145) mmol/L Potassium 6.0 H (3.5-5.1) mmol/L BUN 56 H (7-17) mg/dL Creatinine 1.20 H (0.52-1.04) mg/dL Alkaline Phosphatase 167 H (38-126) U/L Total Protein 6.0 L (6.3-8.2) g/dL Albumin 3.1 L (3.5-5.0) g/dL Microbiology - Last 24 Hours (Table) 11/17/21 16:00 Blood Culture - Preliminary Blood No Growth after 120 hours 11/17/21 15:45 Blood Culture - Preliminary Blood No Growth after 120 hours Assessment and Plan Plan: #1. Shortness of breath, ilateral rib pain, cough related to recurrent aspiration. COVID-19 PCR, influenza A and B were negative. Chest x-ray showed worsening left perihilar and lower lobe infiltrate, and improving right perihilar infiltrate. 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 BAL culture was sent to the [facility] for identification. ID services on the case, current antibiotics include amikacin, tigecycline, and primaxin #2. Dehydration, related to nausea and vomiting, #3. Chronic pain syndrome, most recently on methadone for pain control #4. Chronic kidney disease stage III at baseline #5. Malnutrition and failure to thrive #6. Recurrent aspiration with multiple hospitalizations, patient is currently on TPN for nutritional support in addition to some oral feedings on soft diet #6. History of gastrectomy #7. Chronic pain syndrome #8. Previous history of CVA #9. History of hypothyroidism #10. History of spinal stenosis and chronic back pain #11. History of chronic anemia of chronic disease #12. Anxiety/depression #13. Hyperkalemia, related to IV infusion via TPN with electrolytes, the TPN for mail will be adjusted and serum potassium was treated protocol Plan: Patient is breathing comfortably, vitals have been stable Still complains of rib pain, she is receiving a combination of methadone and IV narcotics for pain control Continue antibiotics per ID service recommendations Continue TPN for nutritional support Pharmacy has been notified to remove potassium from the TPN formula 1 amp of D50, 10 units of insulin are IV push, and 1 g of calcium gluconate IV piggyback Recheck BMP at 1:00 I have personally seen and examined the patient, performed the documentation and the assessment and plan as written. Number of minutes spent on the visit: [15] Time with Patient: Less than 30
[2021-11-23] MEDS: SODIUM CHLORIDE IV SCH ×7 (11:42)
[2021-11-23] MEDS: MAGNESIUM SULFATE IV SCH ×7 (11:42)
[2021-11-23] MEDS: [UNRECOGNIZED DRUG - OTHER] IV SCH ×7 (11:42)
[2021-11-23 11:58] LABS: Basophils # (A) 0.08 X 10*3/uL (0.00-0.10); Basophils % (A) 0.4 %; Eosinophils # (A) 0.36 X 10*3/uL (0.04-0.35); Eosinophils % (A) 1.9 %; HCT 33.7 % (37.2-46.3); HGB 10.1 g/dL (12.0-15.0); Immature Grans, Automated 0.7 %; Lymphocytes # (A) 1.94 X 10*3/uL (0.90-5.00); Lymphocytes % (A) 10.1 %; MCV 86.9 fL (80.0-97.0); Mean Platelet Volume 10.2 fL (9.5-12.2); Monocytes % (A) 6.8 %; NRBC Per 100 WBC 0 /100 WBCS (0.0-0.0); Neutrophils # (A) 15.31 X 10*3/uL (1.80-7.70); Neutrophils % (A) 80.1 %; Platelet Count 482 X 10*3/uL (140-440); RBC 3.88 X 10*6/uL (4.10-5.20); RDW 15.9 % (11.5-14.5); WBC 19.12 X 10*3/uL (4.50-10.00)
[2021-11-23] MEDS: TIGECYCLINE 50 MG in SODIUM CHLORIDE 0.9% 100 ML IVPB SCH ×2 (13:16→21:50)
--- NOTE | 2021-11-23 14:07 | P.PN ---
Subjective Progress Note Date: 11/23/21 On 11/18/2021 patient was seen and examined on the medical floor she is alert and oriented 3 in no apparent distress, she is complaining of cough and shortness of breath otherwise she denies any complaints, patient has a prolonged past medical history with recurrent admissions to assess Hospital was pneumonia she had a bronchoscopy was Dr. 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 Gregorio infectious disease. She was started on IV antibiotic in the emergency room, will continue with same at this time will resume TPN, consultation for pulmonary and infectious disease were initiated On 11/19/2021 patient was seen and examined on the medical floor she is alert an d oriented 3 in no apparent distress she is complaining of abdominal cramping and diarrhea she is still complaining of cough and shortness of breath otherwise she denies any complaints there is no fever or chills no headache or dizziness no chest pain no nausea or vomiting, no blood in the stools no burning with urination no frequency or urgency and no hematuria. At this time will send a stool sample for C. diff will continue was current management otherwise. On 11/20/2021 patient was seen and examined on the medical floor she is alert and oriented in no distress, she is still complaining of cough and shortness of breath otherwise she denies any complaints there is no fever or chills no h eadache or dizziness no chest pain no nausea or vomiting no abdominal pain no blood in the stools no burning with urination no frequency or urgency no hematuria, patient still complaining of some diarrhea .Will check stools for C. diff On 11/21/2021 patient was seen and examined on the medical floor she is alert and oriented in no distress, she is still complaining of cough and shortness of breath otherwise she denies any complaints there is no fever or chills no headache or dizziness no chest pain no nausea or vomiting no abdominal pain no blood in the stools no burning with urination no frequency or urgency no hematuria, patient still complaining of some diarrhea. On 11/22/2021 patient was seen and examined on the medical floor she is alert and oriented 3 in no apparent distress she is complaining of abdominal pain and cramping otherwise she denies any complaints at this time there is no fever or chills no headache or dizziness no chest pain no shortness of breath no cough no nausea or vomiting no blood in the stools no burning with urination frequency or urgency and no hematuria On 11/23/2021 patient was seen and examined on the medical floor she is alert and oriented 3 in no distress she is still complaining of abdominal discomfort but states has improved since yesterday otherwise she denies any complaints there is no fever or chills no headache or dizziness no chest pain no shortness of breath no cough no nausea or vomiting no diarrhea no blood in the stools no burning with urination no frequency or urgency and no hematuria. Abdomen x-ray and abdomen ultrasound reviewed no acute abnormality of the abdomen. Objective - Vital Signs Vital signs: Vital Signs Temp 98.3 F 11/23/21 08:00 Pulse 92 11/23/21 08:00 Resp 15 11/23/21 08:00 BP 172/88 11/23/21 08:00 Pulse Ox 98 11/23/21 08:00 FiO2 Intake & Output 11/22/21 11/23/21 11/23/21 18:59 06:59 18:59 Intake Total 1007.5 1011 Balance 1007.5 1011 Weight 38.102 kg Intake: Intake, IV Titration 1007.5 1011 Amount Mvi, Adult No.4 with Vit 1007.5 1011 K 10 ml Trace (Conc-1Ml/ Dose) 1 ml In Amino Acid 5%-D20w+Lytes*E* 1,000 ml @ 50 mls/hr IV .[id number] [facility] Rx#:[id number] Other: Voiding Method Bedside Commode # Voids 5 3 # Bowel Movements 1 2 - Exam In general patient is alert and oriented x 3 in no distress HEENT head normocephalic and atraumatic Neck is supple no JVD no goiter no lymphadenopathy no carotid bruit Chest examination reveals a scattered crackles in both lung calixto no wheezing Cardiac exam reveals regular heart sounds S1 and S2 no gallops no murmurs Abdomen is soft nontender no organomegaly with normal bowel sounds Extremity exam reveals no edema no cyanosis or clubbing Neurological examination reveals no gross focal deficits - Labs CBC & Chem 7: 11/23/21 08:00 11/23/21 08:00 Labs: Abnormal Lab Results - Last 24 Hours (Table) 11/22/21 11/23/21 Range/Units 08:28 08:00 Sodium 136 L 133 L (137-145) mmol/L Potassium 5.6 H 6.0 H (3.5-5.1) mmol/L BUN 42 H 56 H (7-17) mg/dL Creatinine 1.18 H 1.20 H (0.52-1.04) mg/dL Glucose 136 H (74-99) mg/dL Alkaline Phosphatase 167 H (38-126) U/L Total Protein 6.0 L (6.3-8.2) g/dL Albumin 3.1 L (3.5-5.0) g/dL Microbiology - Last 24 Hours (Table) 11/17/21 16:00 Blood Culture - Preliminary Blood No Growth after 120 hours 11/17/21 15:45 Blood Culture - Preliminary Blood No Growth after 120 hours Assessment and Plan Plan: Recurrent pneumonia was cough and shortness of breath Evidence of dehydration related to nausea vomiting Malnutrition related to previous gastrectomy maintained on TPN Recurrent aspiration pneumonia Previous history of stroke Underlying history of hypothyroidism Underlying history of spinal stenosis with chronic back pain Underlying history of depression with anxiety At this time patient is admitted to medical floor She was started on IV antibiotic Zosyn and Zithromax in the emergency room will continue with same at this time Consultation for pulmonary and infectious disease initiated For DVT prophylaxis patient on subcu heparin
[2021-11-23] MEDS: BUTALB/APAP/CAFF 50-325-40MG TAB PO PRN ×2 (14:11→22:56)
[2021-11-23 17:03] LABS: African American GFR (CKD) 45 (>60 ml/min/1.73 sqM); Anion Gap 7 mmol/L; Blood Urea Nitrogen 57 mg/dL (7-17); Calcium 9.2 mg/dL (8.4-10.2); Carbon Dioxide 25 mmol/L (22-30); Chloride 101 mmol/L (98-107); Glucose 125 mg/dL (74-99); Non-African American GFR(CKD) 39 (>60 ml/min/1.73 sqM); Potassium 5.7 mmol/L (3.5-5.1); Sodium 133 mmol/L (137-145)
[2021-11-23] MEDS: SODIUM CHLORIDE 0.9% 1,000 ML IV SCH (17:17)
[2021-11-23] MEDS: FERROUS SULFATE 325 MG TAB PO SCH (17:44)
--- NOTE | 2021-11-23 20:07 | P.PN ---
Subjective Progress Note Date: 11/23/21 Principal diagnosis: Pneumonia possible Mycobacterium abscessus Patient is a 76-year-old female with a past medical history significant for gastrectomy on chronic TPN this patient also have a history of recurrent pneumonia patient did have bronchoscopy 10/09/2021 which did grow Mycobacterium abscessus, no readmitted to the hospital with increased shortness of breath or cough and evidence of worsening pneumonia with cavitation. On today's evaluation that is , the patient remains to be afebrile, the patient is breathing comfortably on room air, patient denies chest pain and denies any worsening cough or sputum production, no vomiting no urinary symptoms, the patient diarrhea has improved Objective - Vital Signs Vital signs: Vital Signs Temp 98.3 F 11/23/21 08:00 Pulse 92 11/23/21 08:00 Resp 15 11/23/21 08:00 BP 172/88 11/23/21 08:00 Pulse Ox 98 11/23/21 08:00 FiO2 Intake & Output 11/22/21 11/23/21 11/23/21 18:59 06:59 18:59 Intake Total 1007.5 1011 207.5 Balance 1007.5 1011 207.5 Weight 38.102 kg Intake: Intake, IV Titration 1007.5 1011 207.5 Amount Mvi, Adult No.4 with Vit 1007.5 1011 207.5 K 10 ml Trace (Conc-1Ml/ Dose) 1 ml In Amino Acid 5%-D20w+Lytes*E* 1,000 ml @ 50 mls/hr IV .[id number] [facility] Rx#:[id number] Other: Voiding Method Bedside Commode # Voids 5 3 # Bowel Movements 1 2 - Exam GENERAL DESCRIPTION: An elderly female lying in bed in no distress RESPIRATORY SYSTEM: Unlabored breathing , decreased breath sounds at bases HEART: S1 S2 regular rate and rhythm , ABDOMEN: Soft , no tenderness EXTREMITIES: No edema feet - Labs CBC & Chem 7: 11/23/21 08:00 11/23/21 16:16 Labs: Abnormal Lab Results - Last 24 Hours (Table) 11/23/21 11/23/21 Range/Units 08:00 08:00 WBC 19.12 H (4.50-10.00) X 10*3/uL RBC 3.88 L (4.10-5.20) X 10*6/uL Hgb 10.1 L (12.0-15.0) g/dL Hct 33.7 L (37.2-46.3) % MCH 26.0 L (27.0-32.0) pg MCHC 30.0 L (32.0-37.0) g/dL RDW 15.9 H (11.5-14.5) % Plt Count 482 H (140-440) X 10*3/uL Immature Gran # 0.13 H (0.00-0.04) X 10*3/uL Neutrophils # 15.31 H (1.80-7.70) X 10*3/uL Monocytes # 1.30 H (0.20-1.00) X 10*3/uL Eosinophils # 0.36 H (0.04-0.35) X 10*3/uL Sodium 133 L (137-145) mmol/L Potassium 6.0 H (3.5-5.1) mmol/L BUN 56 H (7-17) mg/dL Creatinine 1.20 H (0.52-1.04) mg/dL Alkaline Phosphatase 167 H (38-126) U/L Total Protein 6.0 L (6.3-8.2) g/dL Albumin 3.1 L (3.5-5.0) g/dL Microbiology - Last 24 Hours (Table) 11/17/21 16:00 Blood Culture - Preliminary Blood No Growth after 120 hours 11/17/21 15:45 Blood Culture - Preliminary Blood No Growth after 120 hours Assessment and Plan (1) Pneumonia Current Visit: Yes Status: Acute Code(s): J18.9 - PNEUMONIA, UNSPECIFIED ORGANISM SNOMED Code(s): 831342971 Plan: 1-patient presented to hospital with shortness of breath and cough in this patient did have evidence of cavitating pneumonia on the chest x-ray with recent bronchoscopy culture positive for Mycobacterium abscessus likely the etiology 2-detailed discussion with the micro lab sensitivities has not been finalized and they are not sure when it will be back 3-patient did have a chest CT on 11/19/2021 with evidence of increase in size and number of cavitating lesion concerning for necrotizing pneumonia 4patient has shown some clinical improvement and with continue with amikacin pharmacy to dose while watching his kidney function closely, creatinine slightly elevated 1.34 today along with with imipenem and tigecycline, Time with Patient: Less than 30
[2021-11-23] MEDS: MIRTAZAPINE 45 MG TABLET PO SCH (20:36)
[2021-11-24] MEDS: HYDROmorphone 0.5 MG/0.5 ML SYRINGE IVP PRN ×5 (02:18→20:58)
[2021-11-24] MEDS: SODIUM CHLORIDE 0.9% IVPB SCH ×3 (04:49→14:14)
[2021-11-24] MEDS: IMIPENEM CILASTATIN IVPB SCH ×2 (04:49→14:14)
[2021-11-24] MEDS: BUTALB/APAP/CAFF 50-325-40MG TAB PO PRN ×3 (04:53→23:32)
[2021-11-24] MEDS: LEVOTHYROXINE 100 MCG TAB PO SCH (05:50)
[2021-11-24] MEDS: AMIKACIN SULFATE IVPB SCH (05:50)
[2021-11-24 08:12] LABS: African American GFR (CKD) 50 (>60 ml/min/1.73 sqM); Anion Gap 4 mmol/L; Blood Urea Nitrogen 71 mg/dL (7-17); Calcium 8.6 mg/dL (8.4-10.2); Carbon Dioxide 25 mmol/L (22-30); Chloride 105 mmol/L (98-107); Glucose 85 mg/dL (74-99); Magnesium 2.4 mg/dL (1.6-2.3); Non-African American GFR(CKD) 44 (>60 ml/min/1.73 sqM); Phosphorus 4.8 mg/dL (2.5-4.5); Potassium 5.5 mmol/L (3.5-5.1); Sodium 134 mmol/L (137-145)
[2021-11-24] MEDS: SYMBICORT 160-4.5 MCG INHALER INHALATION SCH ×2 (08:21→20:13)
[2021-11-24] MEDS: IPRATROPIUM-ALBUTEROL 3 ML NEB INHALATION SCH ×4 (08:21→20:13)
[2021-11-24] MEDS: predniSONE 20 MG TAB PO SCH (08:49)
[2021-11-24] MEDS: HEPARIN SODIUM,PORCINE/PF 5,000 UNIT/0.5 ML SYRINGE SQ SCH ×2 (08:49→20:25)
[2021-11-24] MEDS: METHADONE 10 MG TAB PO SCH ×2 (08:50→20:25)
[2021-11-24] MEDS: ASPIRIN 81 MG PO SCH (08:51)
[2021-11-24] MEDS: guaiFENesin 600 MG TABLET.ER PO SCH ×2 (08:51→20:25)
[2021-11-24] MEDS: PANTOPRAZOLE 40 MG TABLET PO SCH (08:51)
[2021-11-24] MEDS: buPROPion XL 300 MG TAB.ER.24H PO SCH (08:51)
[2021-11-24] MEDS: busPIRone HCl 10 MG TAB PO SCH ×2 (08:51→20:25)
[2021-11-24] MEDS: hydrOXYzine pamoate 25 MG CAP PO SCH ×3 (08:51→23:00)
[2021-11-24] MEDS: LORATADINE 10 MG TAB PO SCH (08:51)
[2021-11-24] MEDS: SODIUM BICARBONATE TAB 650 MG TAB PO SCH (08:51)
[2021-11-24] MEDS: PARoxetine 10 MG TAB PO SCH (08:52)
[2021-11-24] MEDS: CHOLESTYRAMINE (WITH SUGAR) 4 GM PACKET PO SCH ×2 (08:52→17:35)
[2021-11-24] MEDS: [UNRECOGNIZED DRUG - OTHER] IV SCH ×7 (09:04)
[2021-11-24] MEDS: MAGNESIUM SULFATE IV SCH ×7 (09:04)
[2021-11-24] MEDS: SODIUM CHLORIDE IV SCH ×7 (09:04)
[2021-11-24] MEDS ORDERED: INSULIN REGULAR 100 UNIT/ML VIAL (IV) IV ONE (09:17)
[2021-11-24] MEDS ORDERED: DEXTROSE 50% SYRINGE 50 ML IVP STA (09:17)
[2021-11-24] MEDS: TIGECYCLINE 50 MG in SODIUM CHLORIDE 0.9% 100 ML IVPB SCH ×2 (10:17→20:57)
--- NOTE | 2021-11-24 10:58 | P.PN ---
Subjective Progress Note Date: 11/24/21 Principal diagnosis: Cough/shortness of breath/phlegm production. 76-year-old female patient who is well-known to our service from previous hospitalizations for recurrent aspiration related pneumonia. Patient has a history of gastrectomy and patient is on TPN for nutritional support with some oral feedings. She has recently been in the hospital, after she had accidentally cut off one of the PICC line ports at home. A new PICC line was placed, patient was discharged home in stable condition to resume TPN and with the home care. Patient's primary care physician Dr. Eli had been trying to get the patient to the [facility] where the patient had her original gastrectomy. Most recently patient had undergone navigational bronchoscopy with biopsies and BAL of the left lower lobe on 10/09/2021 BAL cultures revealed Lesly glabrata, and Mycobacterium abscesses. Patient had received antibiotic infusions in the form of Zosyn. Right lower lobe lung biopsy was nondiagnostic for viable neoplasm, and negative for definitive granulomatous inflammation, left lower lung biopsy was nondiagnostic due to scant cellularity and abundant necrosis. Left lower lung bronchial wash brush tip and brushings were negative for diagnostic malignancy. On 11/17/2021 patient came into the emergency department with shortness of breath, cough, brown-colored phlegm production, decreased appetite, nausea vomiting diarrhea, and pain along the bilateral rib cage wrap around the back. Chest x-ray showed worsening left perihilar and left lower lobe infiltrate, and there was some improvement of the right perihilar increased lung markings. White count was elevated at 15.6, hemoglobin of 11, electrolytes are within normal limits, BUN was 20 creatinine 1.27, alk phos was 236, AST and OT were within normal limits, proBNP was 867 and troponin was less than 0.012, urinalysis showed rare budding yeast, small amount of leuks. COVID-19 influenza A and B were negative Progress note dated 11/19/2021. 76-year-old female seen today, in room 477. She's on room air. She's getting TPN at 30 mL an hour. She is on Zosyn, and azithromycin. Clinically, she is ve ry stable. I recently did a navigational bronchoscopy with biopsies and BAL on this patient, which revealed Lesly glabrata and Mycobacterium abscesses. Biopsies, was negative for neoplasm. The patient was readmitted for possible pneumonia, with worsening infiltrates in the left lung, and improving infiltrate on the right. No new labs today sodium of 137, potassium 4.9, chlorides 106, CO2 23, BUN 29, creatinine 1.27. Blood cultures are negative. A CAT scan of the chest revealed an increase in size and number of cavitary lesions when compared to the previous computed tomography scan done in June of this year. Progress note dated 11/20/2021. 76-year-old female well-known to our service. She seen today again in room 477. She is on room air. She's getting TPN at 50 mL an hour. Her current antibiotics include meropenem and amikacin. The cultures are thus far negative. She was initially on Zosyn and azithromycin. Her antibiotics are being managed by infectious diseases. No new labs today. Clinically, she is feeling only a bit better. Progress note dated 11/21/2021. 76-year-old female seen again in room 477. The patient's on room air. She is receiving TPN. Cultures thus far are negative. Her pro-calcitonin level was relatively low at 0.15. She was upset because she did not receive her morning medications, including her pain medications. She's not having any respiratory distress or difficulty. She's currently on amikacin and imipenem/Cilastatin and Tigecycline. She is also receiving breathing treatments, and Symbicort. Clinically, she stable. I'm not sure why these antibiotics could be given to her at a long-term acute care facility. In my opinion, there is no reason why she needs to be in a acute care hospital. White count 15.47, hemoglobin 10.1, hematocrit 33.6, and platelet count 416,000. Sodium 137, potassium 5, chlorides 104, CO2 23, BUN 34, and creatinine 1.2. Progress note dated 11/24/2021. 76-year-old female again seen in room 477. The patient was placed on prednisone yesterday, 20 mg. She continues on TPN at 50 mL an hour, saline at 20 mL an hour, and she is currently not receiving any supplemental oxygen. Much to my surprise, she actually admits that she feeling much better today. Today, her labs show a sodium 134, potassium 5.5, chlorides 105, CO2 25, BUN 71, and creatinine 1.23. Blood cultures are negative. Objective - Vital Signs Vital signs: Vital Signs Temp 98.0 F 11/24/21 07:53 Pulse 86 11/24/21 07:53 Resp 16 11/24/21 07:53 BP 169/61 11/24/21 07:53 Pulse Ox 99 11/24/21 07:53 FiO2 Intake & Output 11/23/21 11/24/21 11/24/21 18:59 06:59 18:59 Intake Total 207.5 1035.5 Balance 207.5 1035.5 Intake: Intake, IV Titration 207.5 1035.5 Amount Mvi, Adult No.4 with Vit 207.5 K 10 ml Trace (Conc-1Ml/ Dose) 1 ml In Amino Acid 5%-D20w+Lytes*E* 1,000 ml @ 50 mls/hr IV .[id number] [facility] Rx#:[id number] Sodium Chloride 4Meq/ml 1035.5 Vial 44 meq Magnesium Sulfate gm 0.75 gm Calcium Gluconate 1 gm Sodium Phosphate 6 mmol Mvi, Adult No.4 with Vit K 10 ml Trace (Conc-1Ml/ Dose) 1 ml In Amino Acids 5 %/Dextrose 20 % 1,000 ml @ 50 mls/hr IV . [id number] [facility] Rx#:[id number] Other: Voiding Method Bedside Commode Bedside Commode # Voids 4 # Bowel Movements 1 - Exam No acute distress, oriented 3. No respiratory distress, conversational dyspnea, or use of accessory muscles. The patient is on room air. HEENT examination is grossly unremarkable. Neck supple. Full range of motion. No adenopathy thyromegaly or neck vein distention. Cardiovascular examination reveals regular rhythm rate. S1-S2 normal. No S3 or S4. No discernible murmur noted. Heart rate 86 bpm. Lungs reveal scattered mild to moderate rhonchi. No wheezes or crackles. Breath sounds equal bilaterally. Room air saturation 99 %. Abdomen soft bowel sounds are heard. No masses or tenderness. Extremities are intact. No cyanosis clubbing or edema. Skin is without rash or lesion. Neurologic examination is brief but nonfocal. - Labs CBC & Chem 7: 11/23/21 08:00 11/24/21 07:47 Labs: Abnormal Lab Results - Last 24 Hours (Table) 11/23/21 11/23/21 11/24/21 Range/Units 08:00 16:16 07:47 WBC 19.12 H (4.50-10.00) X 10*3/uL RBC 3.88 L (4.10-5.20) X 10*6/uL Hgb 10.1 L (12.0-15.0) g/dL Hct 33.7 L (37.2-46.3) % MCH 26.0 L (27.0-32.0) pg MCHC 30.0 L (32.0-37.0) g/dL RDW 15.9 H (11.5-14.5) % Plt Count 482 H (140-440) X 10*3/uL Immature Gran # 0.13 H (0.00-0.04) X 10*3/uL Neutrophils # 15.31 H (1.80-7.70) X 10*3/uL Monocytes # 1.30 H (0.20-1.00) X 10*3/uL Eosinophils # 0.36 H (0.04-0.35) X 10*3/uL Sodium 133 L 134 L (137-145) mmol/L Potassium 5.7 H 5.5 H (3.5-5.1) mmol/L BUN 57 H 71 H (7-17) mg/dL Creatinine 1.34 H 1.23 H (0.52-1.04) mg/dL Glucose 125 H (74-99) mg/dL Phosphorus 4.8 H (2.5-4.5) mg/dL Magnesium 2.4 H (1.6-2.3) mg/dL Microbiology - Last 24 Hours (Table) 11/17/21 16:00 Blood Culture - Final Blood No Growth after 144 hours 11/17/21 15:45 Blood Culture - Final Blood No Growth after 144 hours Assessment and Plan Assessment: Shortness of breath, bilateral rib pain, cough related to recurrent aspiration. COVID-19 PCR, influenza A and B were negative. Chest x-ray showed worsening left perihilar and lower lobe infiltrate, and improving right perihilar infil trate. Patient recently had a navigational bronchoscopy with biopsies on 10/09/2021 which were nondiagnostic for malignancy, BAL cultures showed Lesly glabrata, and Mycobacterium abscesses, culture was sent to the [place] [facility] for identification. Dehydration, related to nausea and vomiting. Chronic pain syndrome, most recently on methadone for pain control. Chronic kidney disease stage III. Malnutrition and failure to thrive. Recurrent aspiration with multiple hospitalizations, patient is currently on TPN for nutritional support in addition to some oral feedings on soft diet. History of gastrectomy. Chronic pain syndrome. Previous history of CVA. History of hypothyroidism. History of spinal stenosis and chronic back pain. History of chronic anemia of chronic disease Anxiety/depression. Plan: Plan dated 11/19/2021. The patient remains on TPN at 30 mL an hour. She's not requiring any supplemental oxygen. The patient's getting breathing treatments, and Symbicort. In addition, the patient is getting Zosyn. Corticosteroids will be discontinued. Additional recommendations and suggestions are forthcoming. Unfortunately, the patient has had ten admissions and discharges already this year to this institution. We will continue to follow make recommendations where appropriate. The patient may be better suited at a long-term acute care facility. Plan dated 11/20/2021. The patient remains on TPN, and does not require any supplemental oxygen. She was seen by infectious disease crop consultant, and the patient is currently on samir openem and amikacin. Blood cultures are thus far negative. Clinically, she looks very stable. She states that she is only minimally improved. As mentioned previously, the patient has had 10 admissions and discharges this year already. Her prognosis is guarded. We will continue to follow make r ecommendations, where appropriate. Plan dated 11/21/2021. The patient is on antibiotics as per infectious diseases. The patient is stable from my perspective. The patient does not require any oxygen therapy. Labs, x- rays, medications are reviewed. I'm not sure why this patient could receive th [place] antibiotics and a long-term acute care facility, or shelter. There is no reason in my opinion that she needs to be at an acute care hospital. Cultures are thus far negative. We will continue to follow. Prognosis is guarded. As mentioned previously, the patient has had a 10 or 11 admissions to this hospital, this year alone. Plan dated 11/24/2021. The patient appears to be doing relatively well. The patient seems to think that the prednisone that I added, 20 mg, has really improved her significantly just in 24 hours. The patient is currently on room air. She continues on TPN at 50 mL an hour. She is also receiving saline at 20 mL an hour. Additional recommendations and suggestions are forthcoming. Antibiotics are determined by the infectious disease doctor. Prognosis is guarded. Time with Patient: Less than 30
--- NOTE | 2021-11-24 12:54 | P.PN ---
Subjective Progress Note Date: 11/24/21 On 11/18/2021 patient was seen and examined on the medical floor she is alert and oriented 3 in no apparent distress, she is complaining of cough and shortness of breath otherwise she denies any complaints, patient has a prolonged past medical history with recurrent admissions to [facility] was pneumonia she had a bronchoscopy was Dr. 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 Gregorio infectious disease. She was started on IV antibiotic in the emergency room, will continue with same at this time will resume TPN, consultation for pulmonary and infectious disease were initiated On 11/19/2021 patient was seen and examined on the medical floor she is alert an d oriented 3 in no apparent distress she is complaining of abdominal cramping and diarrhea she is still complaining of cough and shortness of breath otherwise she denies any complaints there is no fever or chills no headache or dizziness no chest pain no nausea or vomiting, no blood in the stools no burning with urination no frequency or urgency and no hematuria. At this time will send a stool sample for C. diff will continue was current management otherwise. On 11/20/2021 patient was seen and examined on the medical floor she is alert and oriented in no distress, she is still complaining of cough and shortness of breath otherwise she denies any complaints there is no fever or chills no h eadache or dizziness no chest pain no nausea or vomiting no abdominal pain no blood in the stools no burning with urination no frequency or urgency no hematuria, patient still complaining of some diarrhea .Will check stools for C. diff On 11/21/2021 patient was seen and examined on the medical floor she is alert and oriented in no distress, she is still complaining of cough and shortness of breath otherwise she denies any complaints there is no fever or chills no headache or dizziness no chest pain no nausea or vomiting no abdominal pain no blood in the stools no burning with urination no frequency or urgency no hematuria, patient still complaining of some diarrhea. On 11/22/2021 patient was seen and examined on the medical floor she is alert and oriented 3 in no apparent distress she is complaining of abdominal pain and cramping otherwise she denies any complaints at this time there is no fever or chills no headache or dizziness no chest pain no shortness of breath no cough no nausea or vomiting no blood in the stools no burning with urination frequency or urgency and no hematuria On 11/23/2021 patient was seen and examined on the medical floor she is alert and oriented 3 in no distress she is still complaining of abdominal discomfort but states has improved since yesterday otherwise she denies any complaints there is no fever or chills no headache or dizziness no chest pain no shortness of breath no cough no nausea or vomiting no diarrhea no blood in the stools no burning with urination no frequency or urgency and no hematuria. Abdomen x-ray and abdomen ultrasound reviewed no acute abnormality of the abdomen. On 11/24/2021 patient was seen and examined on the medical floor she is alert and oriented 3 in no apparent distress there is no fever or chills no headache or dizziness no chest pain no shortness of breath no cough no nausea or vomiting no abdominal pain no diarrhea no blood in the stools no burning with urination no frequency or urgency and no hematuria. Abdominal discomfort has improved medication and labs were reviewed continue with current regimen will follow in a.m. Objective - Vital Signs Vital signs: Vital Signs Temp 98.0 F 11/24/21 07:53 Pulse 86 11/24/21 07:53 Resp 16 11/24/21 07:53 BP 169/61 11/24/21 07:53 Pulse Ox 99 11/24/21 07:53 FiO2 Intake & Output 11/23/21 11/24/21 11/24/21 18:59 06:59 18:59 Intake Total 207.5 1035.5 Balance 207.5 1035.5 Intake: Intake, IV Titration 207.5 1035.5 Amount Mvi, Adult No.4 with Vit 207.5 K 10 ml Trace (Conc-1Ml/ Dose) 1 ml In Amino Acid 5%-D20w+Lytes*E* 1,000 ml @ 50 mls/hr IV .[id number] [facility] Rx#:[id number] Sodium Chloride 4Meq/ml 1035.5 Vial 44 meq Magnesium Sulfate gm 0.75 gm Calcium Gluconate 1 gm Sodium Phosphate 6 mmol Mvi, Adult No.4 with Vit K 10 ml Trace (Conc-1Ml/ Dose) 1 ml In Amino Acids 5 %/Dextrose 20 % 1,000 ml @ 50 mls/hr IV . [id number] [facility] Rx#:[id number] Other: Voiding Method Bedside Commode Bedside Commode # Voids 4 # Bowel Movements 1 - Exam In general patient is alert and oriented x 3 in no distress HEENT head normocephalic and atraumatic Neck is supple no JVD no goiter no lymphadenopathy no carotid bruit Chest examination reveals a scattered crackles in both lung calixto no wheezing Cardiac exam reveals regular heart sounds S1 and S2 no gallops no murmurs Abdomen is soft nontender no organomegaly with normal bowel sounds Extremity exam reveals no edema no cyanosis or clubbing Neurological examination reveals no gross focal deficits - Labs CBC & Chem 7: 11/23/21 08:00 11/24/21 07:47 Labs: Abnormal Lab Results - Last 24 Hours (Table) 11/23/21 11/24/21 Range/Units 16:16 07:47 Sodium 133 L 134 L (137-145) mmol/L Potassium 5.7 H 5.5 H (3.5-5.1) mmol/L BUN 57 H 71 H (7-17) mg/dL Creatinine 1.34 H 1.23 H (0.52-1.04) mg/dL Glucose 125 H (74-99) mg/dL Phosphorus 4.8 H (2.5-4.5) mg/dL Magnesium 2.4 H (1.6-2.3) mg/dL Microbiology - Last 24 Hours (Table) 11/17/21 16:00 Blood Culture - Final Blood No Growth after 144 hours 11/17/21 15:45 Blood Culture - Final Blood No Growth after 144 hours Assessment and Plan Plan: Recurrent pneumonia was cough and shortness of breath Evidence of dehydration related to nausea vomiting Malnutrition related to previous gastrectomy maintained on TPN Recurrent aspiration pneumonia Previous history of stroke Underlying history of hypothyroidism Underlying history of spinal stenosis with chronic back pain Underlying history of depression with anxiety At this time patient is admitted to medical floor She was started on IV antibiotic Zosyn and Zithromax in the emergency room will continue with same at this time Consultation for pulmonary and infectious disease initiated For DVT prophylaxis patient on subcu heparin
[2021-11-24] MEDS: FERROUS SULFATE 325 MG TAB PO SCH (17:35)
[2021-11-24] MEDS: MIRTAZAPINE 45 MG TABLET PO SCH (20:27)
[2021-11-24] MEDS: SODIUM CHLORIDE 0.9% 1,000 ML IV SCH (20:30)
[2021-11-25] MEDS: HYDROmorphone 0.5 MG/0.5 ML SYRINGE IVP PRN ×6 (01:40→23:06)
[2021-11-25] MEDS: MAGNESIUM SULFATE IV SCH ×7 (04:13)
[2021-11-25] MEDS: SODIUM CHLORIDE IV SCH ×13 (04:13→04:21)
[2021-11-25] MEDS: [UNRECOGNIZED DRUG - OTHER] IV SCH ×7 (04:13)
[2021-11-25] MEDS: SODIUM ACETATE IV SCH ×6 (04:21)
[2021-11-25] MEDS: CALCIUM GLUCONATE IV SCH ×6 (04:21)
[2021-11-25] MEDS: [UNRECOGNIZED DRUG - OTHER] IV SCH ×6 (04:21)
[2021-11-25] MEDS: ONDANSETRON ODT 4 MG TAB PO PRN ×2 (04:35→15:53)
[2021-11-25] MEDS: IMIPENEM CILASTATIN IVPB SCH ×3 (04:35→15:05)
[2021-11-25] MEDS: SODIUM CHLORIDE 0.9% IVPB SCH ×3 (04:35→15:05)
[2021-11-25] MEDS: BUTALB/APAP/CAFF 50-325-40MG TAB PO PRN ×3 (05:40→20:32)
[2021-11-25] MEDS: LEVOTHYROXINE 100 MCG TAB PO SCH (05:41)
[2021-11-25 06:33] LABS: ALT 18 U/L (4-34); AST 20 U/L (14-36); African American GFR (CKD) 46 (>60 ml/min/1.73 sqM); Albumin 3.4 g/dL (3.5-5.0); Albumin/Globulin Ratio 1.1; Alkaline Phosphatase 191 U/L (38-126); Anion Gap 10 mmol/L; Blood Urea Nitrogen 74 mg/dL (7-17); Calcium 8.8 mg/dL (8.4-10.2); Carbon Dioxide 22 mmol/L (22-30); Chloride 106 mmol/L (98-107); Glucose 99 mg/dL (74-99); Magnesium 2.4 mg/dL (1.6-2.3); Non-African American GFR(CKD) 40 (>60 ml/min/1.73 sqM); Phosphorus 4.8 mg/dL (2.5-4.5); Potassium 5.4 mmol/L (3.5-5.1); Sodium 138 mmol/L (137-145); Total Bilirubin 0.4 mg/dL (0.2-1.3); Total Protein 6.4 g/dL (6.3-8.2)
--- NOTE | 2021-11-25 07:23 | XR ---
EXAMINATION TYPE: XR chest 1V portable DATE OF EXAM: 11/25/2021 COMPARISON: 11/18/2021 HISTORY: Pneumonia TECHNIQUE: Single frontal view of the chest is obtained. FINDINGS: Bilateral areas of consolidation are stable superimposed on a background of COPD. No pneum othorax. PICC line on the left noted. Bilateral small effusions. Hypertrophic and degenerative change of the spine. IMPRESSION: 1. Stable bilateral areas of consolidation correlate for pneumonia underlying neoplasm not excluded.
[2021-11-25] MEDS: IPRATROPIUM-ALBUTEROL 3 ML NEB INHALATION SCH ×4 (07:42→19:56)
[2021-11-25] MEDS: SYMBICORT 160-4.5 MCG INHALER INHALATION SCH ×2 (07:42→19:56)
[2021-11-25] MEDS: HEPARIN SODIUM,PORCINE/PF 5,000 UNIT/0.5 ML SYRINGE SQ SCH ×2 (07:46→20:32)
[2021-11-25] MEDS: guaiFENesin 600 MG TABLET.ER PO SCH ×2 (07:47→20:32)
[2021-11-25] MEDS: METHADONE 10 MG TAB PO SCH ×2 (07:47→20:31)
[2021-11-25] MEDS: hydrOXYzine pamoate 25 MG CAP PO SCH ×3 (07:47→20:33)
[2021-11-25] MEDS: SODIUM BICARBONATE TAB 650 MG TAB PO SCH (07:48)
[2021-11-25] MEDS: LORATADINE 10 MG TAB PO SCH (07:48)
[2021-11-25] MEDS: buPROPion XL 300 MG TAB.ER.24H PO SCH (07:48)
[2021-11-25] MEDS: ASPIRIN 81 MG PO SCH (07:48)
[2021-11-25] MEDS: PARoxetine 10 MG TAB PO SCH (07:48)
[2021-11-25] MEDS: busPIRone HCl 10 MG TAB PO SCH ×2 (07:48→20:32)
[2021-11-25] MEDS: PANTOPRAZOLE 40 MG TABLET PO SCH (07:48)
[2021-11-25] MEDS: predniSONE 20 MG TAB PO SCH (07:48)
[2021-11-25] MEDS: CHOLESTYRAMINE (WITH SUGAR) 4 GM PACKET PO SCH ×2 (07:49→16:49)
--- NOTE | 2021-11-25 08:04 | P.PN ---
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 On today's evaluation that is 11/24/2021, the patient continues to be afebrile, the patient is breathing comfortably on room air, patient denies chest pain , the patient did have a cough but no worsening not be given any sputum no abdominal pain and diarrhea has improved Objective - Vital Signs Vital signs: Vital Signs Temp 97.7 F 11/24/21 14:00 Pulse 100 11/24/21 20:25 Resp 16 11/24/21 14:00 BP 143/64 11/24/21 14:00 Pulse Ox 97 11/24/21 14:00 FiO2 Intake & Output 11/24/21 11/24/21 11/25/21 06:59 18:59 06:59 Intake Total 1155.5 Balance 1155.5 Intake: Intake, IV Titration 1035.5 Amount Sodium Chloride 4Meq/ml 1035.5 Vial 44 meq Magnesium Sulfate gm 0.75 gm Calcium Gluconate 1 gm Sodium Phosphate 6 mmol Mvi, Adult No.4 with Vit K 10 ml Trace (Conc-1Ml/ Dose) 1 ml In Amino Acids 5 %/Dextrose 20 % 1,000 ml @ 50 mls/hr IV . [id number] [facility] Rx#:[id number] Oral 120 Other: Voiding Method Bedside Commode Bedside Commode # Voids 4 1 # Bowel Movements 1 - Exam GENERAL DESCRIPTION: An elderly female lying in bed in no distress RESPIRATORY SYSTEM: Unlabored breathing , decreased breath sounds at bases HEART: S1 S2 regular rate and rhythm , ABDOMEN: Soft , no tenderness EXTREMITIES: No edema feet - Labs CBC & Chem 7: 11/23/21 08:00 11/25/21 05:52 Labs: Abnormal Lab Results - Last 24 Hours (Table) 11/24/21 Range/Units 07:47 Sodium 134 L (137-145) mmol/L Potassium 5.5 H (3.5-5.1) mmol/L BUN 71 H (7-17) mg/dL Creatinine 1.23 H (0.52-1.04) mg/dL Phosphorus 4.8 H (2.5-4.5) mg/dL Magnesium 2.4 H (1.6-2.3) mg/dL Microbiology - Last 24 Hours (Table) 11/17/21 16:00 Blood Culture - Final Blood No Growth after 144 hours 11/17/21 15:45 Blood Culture - Final Blood No Growth after 144 hours Assessment and Plan (1) Pneumonia Current Visit: Yes Status: Acute Code(s): J18.9 - PNEUMONIA, UNSPECIFIED ORGANISM SNOMED Code(s): 310628607 Plan: 1-patient presented to hospital with shortness of breath and cough in this patient did have evidence of cavitating pneumonia on the chest x-ray with recent bronchoscopy culture positive for Mycobacterium abscessus likely the etiology 2-detailed discussion with the micro lab sensitivities has not been finalized and they are not sure when it will be back 3-patient did have a chest CT on 11/19/2021 with evidence of increase in size and number of cavitating lesion concerning for necrotizing pneumonia 4patient slowly clinical improvement and will continue with amikacin pharmacy to dose along with with imipenem and tigecycline, will likely need placement for more careful administration of her medication Time with Patient: Less than 30
[2021-11-25 08:47] LABS: HCT 33.6 % (37.2-46.3); HGB 10.1 g/dL (12.0-15.0); MCH 26.1 pg (27.0-32.0); MCHC 30.1 g/dL (32.0-37.0); MCV 86.8 fL (80.0-97.0); Mean Platelet Volume 9.9 fL (9.5-12.2); NRBC Per 100 WBC 0 /100 WBCS (0.0-0.0); Platelet Count 535 X 10*3/uL (140-440); RBC 3.87 X 10*6/uL (4.10-5.20); RDW 15.9 % (11.5-14.5); WBC 18.17 X 10*3/uL (4.50-10.00)
[2021-11-25] MEDS: TIGECYCLINE 50 MG in SODIUM CHLORIDE 0.9% 100 ML IVPB SCH ×2 (08:51→21:20)
[2021-11-25 09:45] LABS: Basophils # (A) 0.06 X 10*3/uL (0.00-0.10); Basophils % (A) 0.3 %; Eosinophils # (A) 0.22 X 10*3/uL (0.04-0.35); Eosinophils % (A) 1.2 %; Immature Grans, Automated 0.8 %; Lymphocytes # (A) 2.05 X 10*3/uL (0.90-5.00); Lymphocytes % (A) 11.3 %; Monocytes # (A) 1.52 X 10*3/uL (0.20-1.00); Monocytes % (A) 8.4 %; Neutrophils # (A) 14.18 X 10*3/uL (1.80-7.70)
--- NOTE | 2021-11-25 15:36 | P.PN ---
Subjective Progress Note Date: 11/25/21 76-year-old female patient who is well-known to our service from previous hospitalizations for recurrent aspiration related pneumonia. Patient has a history of gastrectomy and patient is on TPN for nutritional support with some oral feedings. She has recently been in the hospital, after she had michaele jeffersony cut off one of the PICC line ports at home. A new PICC line was placed, patient was discharged home in stable condition to resume TPN and with the home care. Patient's primary care physician Dr. Eli had been trying to get the patient to the [facility] where the patient had her original gastrectomy. Most recently patient had undergone navigational bronchoscopy with biopsies and BAL of the left lower lobe on 10/09/2021 BAL cultures revealed Lesly glabrata, and Mycobacterium abscesses. Patient had received antibiotic infusions in the form of Zosyn. Right lower lobe lung biopsy was nondiagnostic for viable neoplasm, and negative for definitive granulomatous inflammation, left lower lung biopsy was nondiagnostic due to scant cellularity and abundant necrosis. Left lower lung bronchial wash brush tip and brushings were negative for diagnostic malignancy. On 11/17/2021 patient came into the emergency department with shortness of breath, cough, brown-colored phlegm production, decreased appetite, nausea vomiting diarrhea, and pain along the bilateral rib cage wrap around the back. Chest x-ray showed worsening left perihilar and left lower lobe infiltrate, and there was some improvement of the right perihilar increased lung markings. White count was elevated at 15.6, hemoglobin of 11, electrolytes are within normal limits, BUN was 20 creatinine 1.27, alk phos was 236, AST and OT were within normal limits, proBNP was 867 and troponin was less than 0.012, urinalysis showed rare budding yeast, small amount of leuks. COVID-19 influenza A and B were negative Progress note dated 11/19/2021. 76-year-old female seen today, in room 477. She's on room air. She's getting TPN at 30 mL an hour. She is on Zosyn, and azithromycin. Clinically, she is very stable. I recently did a navigational bronchoscopy with biopsies and BAL on this patient, which revealed Lesly glabrata and Mycobacterium abscesses. Biopsies, was negative for neoplasm. The patient was readmitted for possible pneumonia, with worsening infiltrates in the left lung, and improving infiltrate on the right. No new labs today sodium of 137, potassium 4.9, chlorides 106, CO2 23, BUN 29, creatinine 1.27. Blood cultures are negative. A CAT scan of the chest revealed an increase in size and number of cavitary lesions when compared to the previous computed tomography scan done in June of this year. Progress note dated 11/20/2021. 76-year-old female well-known to our service. She seen today again in room 477. She is on room air. She's getting TPN at 50 mL an hour. Her current antibiotics include meropenem and amikacin. The cultures are thus far negative. She was initially on Zosyn and azithromycin. Her antibiotics are being managed by infectious diseases. No new labs today. Clinically, she is feeling only a bit better. Progress note dated 11/21/2021. 76-year-old female seen again in room 477. The patient's on room air. She is receiving TPN. Cultures thus far are negative. Her pro-calcitonin level was relatively low at 0.15. She was upset because she did not receive her morning medications, including her pain medications. She's not having any respiratory distress or difficulty. She's currently on amikacin and imipenem/Cilastatin and Tigecycline. She is also receiving breathing treatments, and Symbicort. Clinically, she stable. I'm not sure why these antibiotics could be given to her at a long-term acute care facility. In my opinion, there is no reason why she needs to be in a acute care hospital. White count 15.47, hemoglobin 10.1, hematocrit 33.6, and platelet count 416,000. Sodium 137, potassium 5, chlorides 104, CO2 23, BUN 34, and creatinine 1.2. Progress note dated 11/24/2021. 76-year-old female again seen in room 477. The patient was placed on prednisone yesterday, 20 mg. She continues on TPN at 50 mL an hour, saline at 20 mL an hour, and she is currently not receiving any supplemental oxygen. Much to my surprise, she actually admits that she feeling much better today. Today, her labs show a sodium 134, potassium 5.5, chlorides 105, CO2 25, BUN 71, and creatinine 1.23. Blood cultures are negative. 11/25/2021, the patient is doing well and she has no specific complaints. 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 Based on the previous bronchial lavage. The patient was started on broad-spectrum antibiotic coverage. For now, the patient is taking tigecycline, amikacin and she is also on Primaxin. The patient is also taking steroids needs to be Further As the Patient Has Underlying Mycobacterial Infection. She Remains on TPN for Nutritional Support. On Today's Evaluation, She Is Afebrile. Pulse Ox Solu-Medrol, 96%. A Repeat Chest X-Ray That Was Done Today Showed Stable Bilateral Areas of Consolidation and There Is Areas of Cavitation, Especially on the Left. No Nausea. No Vomiting. No Diarrhea. No Abdominal Pain. White Cell Count of 18.1 with a Hemoglobin of 10.1 and a Platelet Count of 535. Creatinine Is at 1.3 with a Mean of 74 and a sodium level of 138. Objective - Vital Signs Vital signs: Vital Signs Temp 98.4 F 11/25/21 08:00 Pulse 95 11/25/21 08:00 Resp 16 11/25/21 08:00 BP 171/75 11/25/21 08:00 Pulse Ox 96 11/25/21 08:00 FiO2 Intake & Output 11/24/21 11/25/21 11/25/21 18:59 06:59 18:59 Intake Total 1155.5 1035.5 Balance 1155.5 1035.5 Intake: Intake, IV Titration 1035.5 1035.5 Amount Sodium Chloride 4Meq/ml 1035.5 1035.5 Vial 44 meq Magnesium Sulfate gm 0.75 gm Calcium Gluconate 1 gm Sodium Phosphate 6 mmol Mvi, Adult No.4 with Vit K 10 ml Trace (Conc-1Ml/ Dose) 1 ml In Amino Acids 5 %/Dextrose 20 % 1,000 ml @ 50 mls/hr IV . [id number] [facility] Rx#:[id number] Oral 120 Other: Voiding Method Bedside Commode Bedside Commode Bedside Commode # Voids 4 6 # Bowel Movements 1 - Exam No acute distress, oriented 3. No respiratory distress, conversational dyspnea, or use of accessory muscles. The patient is on room air. HEENT examination is grossly unremarkable. Neck supple. Full range of motion. No adenopathy thyromegaly or neck vein distention. Cardiovascular examination reveals regular rhythm rate. S1-S2 normal. No S3 or S4. No discernible murmur noted. Heart rate 86 bpm. Lungs reveal scattered mild to moderate rhonchi. No wheezes or crackles. Breath sounds equal bilaterally. Room air saturation 99 %. Abdomen soft bowel sounds are heard. No masses or tenderness. Extremities are intact. No cyanosis clubbing or edema. Skin is without rash or lesion. Neurologic examination is brief but nonfocal. - Labs CBC & Chem 7: 11/25/21 05:52 11/25/21 05:52 Labs: Abnormal Lab Results - Last 24 Hours (Table) 11/24/21 11/25/21 11/25/21 Range/Units 14:32 05:52 05:52 WBC 18.17 H (4.50-10.00) X 10*3/uL RBC 3.87 L (4.10-5.20) X 10*6/uL Hgb 10.1 L (12.0-15.0) g/dL Hct 33.6 L (37.2-46.3) % MCH 26.1 L (27.0-32.0) pg MCHC 30.1 L (32.0-37.0) g/dL RDW 15.9 H (11.5-14.5) % Plt Count 535 H (140-440) X 10*3/uL Plt Count Comment INCREASED A Immature Gran # 0.14 H (0.00-0.04) X 10*3/uL Neutrophils # 14.18 H (1.80-7.70) X 10*3/uL Monocytes # 1.52 H (0.20-1.00) X 10*3/uL Potassium 5.4 H (3.5-5.1) mmol/L BUN 74 H (7-17) mg/dL Creatinine 1.32 H (0.52-1.04) mg/dL Phosphorus 4.8 H (2.5-4.5) mg/dL Magnesium 2.4 H (1.6-2.3) mg/dL Alkaline Phosphatase 191 H (38-126) U/L Albumin 3.4 L (3.5-5.0) g/dL Procalcitonin 0.36 H (0.02-0.09) ng/mL Assessment and Plan Plan: Shortness of breath, bilateral rib pain, cough related to recurrent aspiration. COVID-19 PCR, influenza A and B were negative. Chest x-ray showed worsening left perihilar and lower lobe infiltrate, and improving right perihilar infiltrate. Patient recently had a navigational bronchoscopy with biopsies on 10/09/2021 which were nondiagnostic for malignancy, BAL cultures showed Lesly glabrata, and Mycobacterium abscesses, culture was sent to the [facility] for identification. The patient is currently on a combination of tigecycline, Primaxin and amikacin. Dehydration, related to nausea and vomiting. Chronic pain syndrome, most recently on methadone for pain control. Chronic kidney disease stage III. Malnutrition and failure to thrive. Recurrent aspiration with multiple hospitalizations, patient is currently on TPN for nutritional support in addition to some oral feedings on soft diet. History of gastrectomy. Chronic pain syndrome. Previous history of CVA. History of hypothyroidism. History of spinal stenosis and chronic back pain. History of chronic anemia of chronic disease Anxiety/depression. Plan: Drop-down the prednisone to 10 mg by mouth daily Chest x-ray findings are stable Continue TPN for nutritional support Will follow-up IDs recommendations regarding antibiotic coverage We'll continue to follow
[2021-11-25] MEDS: FERROUS SULFATE 325 MG TAB PO SCH (16:49)
[2021-11-25] MEDS: MIRTAZAPINE 45 MG TABLET PO SCH (20:33)
[2021-11-25] MEDS: SODIUM CHLORIDE 0.9% 1,000 ML IV SCH (22:55)
[2021-11-26] MEDS: BUTALB/APAP/CAFF 50-325-40MG TAB PO PRN ×4 (02:24→23:59)
[2021-11-26] MEDS: SODIUM ACETATE IV SCH ×6 (03:08)
[2021-11-26] MEDS: HYDROmorphone 0.5 MG/0.5 ML SYRINGE IVP PRN ×5 (03:08→20:50)
[2021-11-26] MEDS: SODIUM CHLORIDE IV SCH ×6 (03:08)
[2021-11-26] MEDS: CALCIUM GLUCONATE IV SCH ×6 (03:08)
[2021-11-26] MEDS: [UNRECOGNIZED DRUG - OTHER] IV SCH ×6 (03:08)
[2021-11-26] MEDS: ONDANSETRON ODT 4 MG TAB PO PRN ×2 (03:10→16:57)
[2021-11-26] MEDS: IMIPENEM CILASTATIN IVPB SCH ×2 (03:39→15:50)
[2021-11-26] MEDS: SODIUM CHLORIDE 0.9% IVPB SCH ×3 (03:39→15:50)
[2021-11-26] MEDS: AMIKACIN SULFATE IVPB SCH (06:18)
[2021-11-26] MEDS: LEVOTHYROXINE 100 MCG TAB PO SCH (06:18)
[2021-11-26] MEDS: FAT EMULSION 20% 250 ML in EMPTY BAG 1 BAG IV SCH (07:37)
[2021-11-26] MEDS: PARoxetine 10 MG TAB PO SCH (07:38)
[2021-11-26] MEDS: METHADONE 10 MG TAB PO SCH ×2 (07:38→20:30)
[2021-11-26] MEDS: HEPARIN SODIUM,PORCINE/PF 5,000 UNIT/0.5 ML SYRINGE SQ SCH ×2 (07:38→20:31)
[2021-11-26] MEDS: busPIRone HCl 10 MG TAB PO SCH ×2 (07:38→20:32)
[2021-11-26] MEDS: buPROPion XL 300 MG TAB.ER.24H PO SCH (07:38)
[2021-11-26] MEDS: PANTOPRAZOLE 40 MG TABLET PO SCH (07:39)
[2021-11-26] MEDS: predniSONE 10 MG TAB PO SCH (07:39)
[2021-11-26] MEDS: LORATADINE 10 MG TAB PO SCH (07:39)
[2021-11-26] MEDS: ASPIRIN 81 MG PO SCH (07:39)
[2021-11-26] MEDS: guaiFENesin 600 MG TABLET.ER PO SCH ×2 (07:39→20:32)
[2021-11-26] MEDS: hydrOXYzine pamoate 25 MG CAP PO SCH ×3 (07:39→21:37)
[2021-11-26] MEDS: MIRTAZAPINE 45 MG TABLET PO SCH (07:39)
[2021-11-26] MEDS: CHOLESTYRAMINE (WITH SUGAR) 4 GM PACKET PO SCH ×2 (07:39→18:19)
[2021-11-26] MEDS: SODIUM BICARBONATE TAB 650 MG TAB PO SCH (07:40)
[2021-11-26 08:01] LABS: ALT 26 U/L (4-34); AST 43 U/L (14-36); African American GFR (CKD) 45 (>60 ml/min/1.73 sqM); Albumin 3.5 g/dL (3.5-5.0); Albumin/Globulin Ratio 1.1; Alkaline Phosphatase 217 U/L (38-126); Anion Gap 9 mmol/L; Blood Urea Nitrogen 73 mg/dL (7-17); Calcium 9.1 mg/dL (8.4-10.2); Carbon Dioxide 26 mmol/L (22-30); Chloride 103 mmol/L (98-107); Globulin 3.1 g/dL; Glucose 78 mg/dL (74-99); Magnesium 2.2 mg/dL (1.6-2.3); Non-African American GFR(CKD) 39 (>60 ml/min/1.73 sqM); Phosphorus 4.8 mg/dL (2.5-4.5); Potassium 5.9 mmol/L (3.5-5.1); Sodium 138 mmol/L (137-145); Total Bilirubin 0.3 mg/dL (0.2-1.3); Total Protein 6.6 g/dL (6.3-8.2)
[2021-11-26] MEDS: IPRATROPIUM-ALBUTEROL 3 ML NEB INHALATION SCH ×4 (08:20→19:20)
[2021-11-26] MEDS: SYMBICORT 160-4.5 MCG INHALER INHALATION SCH ×2 (08:20→19:19)
[2021-11-26] MEDS: TIGECYCLINE 50 MG in SODIUM CHLORIDE 0.9% 100 ML IVPB SCH ×2 (10:38→21:37)
--- NOTE | 2021-11-26 13:18 | P.PN ---
Subjective Progress Note Date: 11/26/21 Principal diagnosis: Cough, shortness of breath On 11/22/2021 patient seen in follow-up on medical surgical floor. She is resting comfortably in bed, no signs of any respiratory distress. Breathing comfortably. Room air pulse ox is 90%, she is afebrile, patient is on combina tion of antibiotics with amikacin, tigecycline, and Primaxin for Mycobacterium abscesses. Remains on nebulized bronchodilators. She is 89 able to bring up any phlegm. Blood cultures have shown no growth. Serum pro calcitonin level is low at 0.15, CRP is 3.0. Today's labs have been noted, potassium is 5.6, sodium is 136, B1 is 41, creatinine is 1.18. Patient remains on TPN for nutritional support in addition to a soft diet vital signs have been stable, she's had no fever while inpatient, blood pressure is been stable, no altered mentation. On 11/23/2021 patient seen in follow-up on medical surgical floor. She is resting in bed, still complains of chest discomfort with deep breathing and coughing along the lower bilateral ribs. Does not appear to be in any acute distress, on room air. Her cough was dry, noncongested. She has not been able to provide a sputum sample, she remains on a combination of antibiotics including tigecycline, Primaxin, and amikacin for mycobacterial pulmonary infection. ID service is following. Vitals have been stable, today's labs have been reviewed, her potassium level has been on the rise, 5.6 on yesterday's labs, and at 6.0 on today's labs, sodium is 133, BUN is 56, creatinine is 1.2. Pro calcitonin level was 0.15. Patient remains on TPN with some oral feedings. We spoke to the pharmacist on duty today, and asked them to review the elect rolytes and remove the potassium from the TPN solution. Hyperkalemia will be treated per protocol and BMP will be rechecked. On 11/26/2021 patient seen in follow-up on medical surgical floor. She states she had multiple episodes of vomiting last night. No nausea. She still complains of pain in her rib cage, which is worse since the multiple vomiting episodes. Patient continues on triple antibiotic coverage regarding her Mycobacterium pulmonary infection, with a combination of amikacin, tigecycline, and imipenem. She denies any worsening shortness of breath, other than with exertion, room air pulse ox is 96%, she's been afebrile. Hypertensive today, with a blood pressure 186/100, we'll defer to primary care physician for management of blood pressure. Yesterday's chest x-ray showed stable bilateral areas of consolidation. Today's lab 7 noted, CBC still pending, BMP showed potassium of 5.9, sodium of 138, BUN of 73 and creatinine is 1.35. Serum pro calcitonin level is 0.36, which is worse compared her admission serum pro calcitonin level of 0.15. Objective - Vital Signs Vital signs: Vital Signs Temp 98.8 F 11/26/21 08:00 Pulse 101 H 11/26/21 08:00 Resp 18 11/26/21 08:00 BP 186/100 11/26/21 08:00 Pulse Ox 96 11/26/21 08:00 FiO2 Intake & Output 11/25/21 11/26/21 11/26/21 18:59 06:59 18:59 Intake Total 200 1540 Balance 200 1540 Weight 38.102 kg Intake: Intake, IV Titration 200 1040 Amount Imipenem-Cilastatin 500 100 mg In Sodium Chloride 0.9 % 100 ml @ 220 mls/hr IVPB Q12H [facility] Rx#: [id number] Sodium Chloride 4Meq/ml 1040 Vial 28 meq Sodium Acetate 24 meq Calcium Gluconate 1 gm Mvi, Adult No.4 with Vit K 10 ml Trace (Conc-1Ml/Dose) 1 ml In Amino Acids 5 %/ Dextrose 20 % 1,000 ml @ 50 mls/hr IV .[id number] [facility] Rx#:[id number] Tigecycline 50 mg In 100 Sodium Chloride 0.9% 100 ml @ 200 mls/hr IVPB Q12HR [facility] Rx#:[id number] Oral 500 Other: Voiding Method Bedside Commode Bedside Commode Bedside Commode # Voids 3 - Exam GENERAL EXAM: Alert, very pleasant, 76-year-old white female, cachectic, on room air pulse ox of 96% but appears to be in no acute distress, on room air comfortable in no apparent distress. HEAD: Normocephalic/atraumatic. EYES: Normal reaction of pupils, equal size. Conjunctiva pink, sclera white. NOSE: Clear with pink turbinates. THROAT: No erythema or exudates. NECK: No masses, no JVD, no thyroid enlargement, no adenopathy. CHEST: No chest wall deformity. Symmetrical expansion. LUNGS: Equal air entry with no crackles, wheeze, rhonchi or dullness. CVS: Regular rate and rhythm, normal S1 and S2, no gallops, no murmurs, no rubs ABDOMEN: Soft, nontender. No hepatosplenomegaly, normal bowel sounds, no gua rding or rigidity. EXTREMITIES: No clubbing, no edema, no cyanosis, 2+ pulses and upper and lower extremities. MUSCULOSKELETAL: Muscle strength and tone normal. SPINE: No scoliosis or deformity SKIN: No rashes CENTRAL NERVOUS SYSTEM: Alert and oriented -3. No focal deficits, tone is normal in all 4 extremities. PSYCHIATRIC: Alert and oriented -3. Appropriate affect. Intact judgment and insight. - Labs CBC & Chem 7: 11/25/21 05:52 11/26/21 07:09 Labs: Abnormal Lab Results - Last 24 Hours (Table) 11/26/21 Range/Units 07:09 Potassium 5.9 H (3.5-5.1) mmol/L BUN 73 H (7-17) mg/dL Creatinine 1.35 H (0.52-1.04) mg/dL Phosphorus 4.8 H (2.5-4.5) mg/dL AST 43 H (14-36) U/L Alkaline Phosphatase 217 H (38-126) U/L Assessment and Plan Plan: #1. Shortness of breath, ilateral rib pain, cough related to recurrent aspiration. COVID-19 PCR, influenza A and B were negative. Chest x-ray showed worsening left perihilar and lower lobe infiltrate, and improving right perihilar infiltrate. 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 BAL culture was sent to the [place] [facility] for identification. ID services on the case, current antibiotics include amikacin, tigecycline, and primaxin #2. Dehydration, related to nausea and vomiting, #3. Chronic pain syndrome, most recently on methadone for pain control #4. Chronic kidney disease stage III at baseline #5. Malnutrition and failure to thrive #6. Recurrent aspiration with multiple hospitalizations, patient is currently on TPN for nutritional support in addition to some oral feedings on soft diet #6. History of gastrectomy #7. Chronic pain syndrome #8. Previous history of CVA #9. History of hypothyroidism #10. History of spinal stenosis and chronic back pain #11. History of chronic anemia of chronic disease #12. Anxiety/depression #13. Hyperkalemia, related to IV infusion via TPN with electrolytes, the TPN for mail will be adjusted and serum potassium was treated protocol Plan: Continue with antibiotics per ID service recommendations Yesterday chest x-ray has been noted showing stable bilateral areas of consolidation. Maintain aspiration precautions Continue TPN for nutritional support Prednisone has been dropped down to 10 mg and will be weaned off completely in the next few days Continue to follow her clinical course I have personally seen and examined the patient and reviewed the documentation. I performed a joint evaluation with the nurse practitioner in this evaluation was done more than 20 minutes. I fully agree with the documentation above and the plan of care. Patient will continue current antibiotic coverage. She is having some GI upset been monitored. No other significant events otherwise over 24 hours. Time with Patient: Less than 30
[2021-11-26] MEDS: SODIUM CHLORIDE 0.9% 1,000 ML IV SCH (15:51)
[2021-11-26] MEDS: FERROUS SULFATE 325 MG TAB PO SCH (18:19)
[2021-11-26 20:44] LABS: Glucose,Whole Blood 131 mg/dL (70-110)
[2021-11-27] MEDS: HYDROmorphone 0.5 MG/0.5 ML SYRINGE IVP PRN ×6 (00:55→23:01)
[2021-11-27] MEDS: SODIUM ACETATE IV SCH ×12 (02:35→22:25)
[2021-11-27] MEDS: CALCIUM GLUCONATE IV SCH ×12 (02:35→22:25)
[2021-11-27] MEDS: [UNRECOGNIZED DRUG - OTHER] IV SCH ×6 (02:35)
[2021-11-27] MEDS: SODIUM CHLORIDE IV SCH ×12 (02:35→22:25)
[2021-11-27] MEDS: IMIPENEM CILASTATIN IVPB SCH ×2 (03:39→16:44)
[2021-11-27] MEDS: SODIUM CHLORIDE 0.9% IVPB SCH ×2 (03:39→16:44)
[2021-11-27] MEDS: ONDANSETRON ODT 4 MG TAB PO PRN ×2 (03:48→13:40)
[2021-11-27] MEDS: LEVOTHYROXINE 100 MCG TAB PO SCH (06:11)
[2021-11-27] MEDS: IPRATROPIUM-ALBUTEROL 3 ML NEB INHALATION SCH ×4 (07:17→19:09)
[2021-11-27] MEDS: predniSONE 10 MG TAB PO SCH (07:21)
[2021-11-27] MEDS: buPROPion XL 300 MG TAB.ER.24H PO SCH (07:21)
[2021-11-27] MEDS: busPIRone HCl 10 MG TAB PO SCH ×2 (07:21→21:36)
[2021-11-27] MEDS: METHADONE 10 MG TAB PO SCH ×2 (07:21→21:36)
[2021-11-27] MEDS: ASPIRIN 81 MG PO SCH (07:22)
[2021-11-27] MEDS: hydrOXYzine pamoate 25 MG CAP PO SCH ×3 (07:22→21:36)
[2021-11-27] MEDS: guaiFENesin 600 MG TABLET.ER PO SCH ×2 (07:22→21:37)
[2021-11-27] MEDS: LORATADINE 10 MG TAB PO SCH (07:22)
[2021-11-27] MEDS: HEPARIN SODIUM,PORCINE/PF 5,000 UNIT/0.5 ML SYRINGE SQ SCH ×2 (07:22→21:36)
[2021-11-27] MEDS: SODIUM BICARBONATE TAB 650 MG TAB PO SCH (07:22)
[2021-11-27] MEDS: PANTOPRAZOLE 40 MG TABLET PO SCH (07:22)
[2021-11-27] MEDS: BUTALB/APAP/CAFF 50-325-40MG TAB PO PRN ×3 (07:22→19:57)
[2021-11-27] MEDS: PARoxetine 10 MG TAB PO SCH (07:24)
[2021-11-27] MEDS: CHOLESTYRAMINE (WITH SUGAR) 4 GM PACKET PO SCH ×2 (07:24→16:44)
[2021-11-27] MEDS: SYMBICORT 160-4.5 MCG INHALER INHALATION SCH ×2 (07:28→19:09)
[2021-11-27 07:59] LABS: ALT 36 U/L (4-34); African American GFR (CKD) 44 (>60 ml/min/1.73 sqM); Albumin 3.5 g/dL (3.5-5.0); Albumin/Globulin Ratio 1.1; Anion Gap 15 mmol/L; Blood Urea Nitrogen 76 mg/dL (7-17); Calcium 9.3 mg/dL (8.4-10.2); Carbon Dioxide 20 mmol/L (22-30); Chloride 101 mmol/L (98-107); Globulin 3.1 g/dL; Glucose 92 mg/dL (74-99); Non-African American GFR(CKD) 38 (>60 ml/min/1.73 sqM); Sodium 136 mmol/L (137-145); Total Bilirubin 0.3 mg/dL (0.2-1.3); Total Protein 6.6 g/dL (6.3-8.2)
[2021-11-27 08:04] LABS: AST 49 U/L (14-36); Alkaline Phosphatase 211 U/L (38-126); Magnesium 1.9 mg/dL (1.6-2.3); Phosphorus 4.5 mg/dL (2.5-4.5); Potassium 5.3 mmol/L (3.5-5.1)
--- NOTE | 2021-11-27 09:14 | P.PN ---
Subjective Progress Note Date: 11/25/21 On 11/18/2021 patient was seen and examined on the medical floor she is alert and oriented 3 in no apparent distress, she is complaining of cough and shortness of breath otherwise she denies any complaints, patient has a prolonged past medical history with recurrent admissions to [facility] was pneumonia she had a bronchoscopy was Dr. 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 Gregorio infectious disease. She was started on IV antibiotic in the emergency room, will continue with same at this time will resume TPN, consultation for pulmonary and infectious disease were initiated On 11/19/2021 patient was seen and examined on the medical floor she is alert an d oriented 3 in no apparent distress she is complaining of abdominal cramping and diarrhea she is still complaining of cough and shortness of breath otherwise she denies any complaints there is no fever or chills no headache or dizziness no chest pain no nausea or vomiting, no blood in the stools no burning with urination no frequency or urgency and no hematuria. At this time will send a stool sample for C. diff will continue was current management otherwise. On 11/20/2021 patient was seen and examined on the medical floor she is alert and oriented in no distress, she is still complaining of cough and shortness of breath otherwise she denies any complaints there is no fever or chills no h eadache or dizziness no chest pain no nausea or vomiting no abdominal pain no blood in the stools no burning with urination no frequency or urgency no hematuria, patient still complaining of some diarrhea .Will check stools for C. diff On 11/21/2021 patient was seen and examined on the medical floor she is alert and oriented in no distress, she is still complaining of cough and shortness of breath otherwise she denies any complaints there is no fever or chills no headache or dizziness no chest pain no nausea or vomiting no abdominal pain no blood in the stools no burning with urination no frequency or urgency no hematuria, patient still complaining of some diarrhea. On 11/22/2021 patient was seen and examined on the medical floor she is alert and oriented 3 in no apparent distress she is complaining of abdominal pain and cramping otherwise she denies any complaints at this time there is no fever or chills no headache or dizziness no chest pain no shortness of breath no cough no nausea or vomiting no blood in the stools no burning with urination frequency or urgency and no hematuria On 11/23/2021 patient was seen and examined on the medical floor she is alert and oriented 3 in no distress she is still complaining of abdominal discomfort but states has improved since yesterday otherwise she denies any complaints there is no fever or chills no headache or dizziness no chest pain no shortness of breath no cough no nausea or vomiting no diarrhea no blood in the stools no burning with urination no frequency or urgency and no hematuria. Abdomen x-ray and abdomen ultrasound reviewed no acute abnormality of the abdomen. On 11/24/2021 patient was seen and examined on the medical floor she is alert and oriented 3 in no apparent distress there is no fever or chills no headache or dizziness no chest pain no shortness of breath no cough no nausea or vomiting no abdominal pain no diarrhea no blood in the stools no burning with urination no frequency or urgency and no hematuria. Abdominal discomfort has improved medication and labs were reviewed continue with current regimen will follow in a.m. On 11/25/2021 patient was seen and examined on the medical floor she is alert and oriented 3 in no distress she is complaining of shortness of breath with activity her abdominal discomfort has improved there is no fever or chills no headache or dizziness no chest pain no nausea or vomiting no abdominal pain no diarrhea no blood in the stools no burning with urination no frequency or urgency and no hematuria Objective - Vital Signs Vital signs: Vital Signs Temp 98.4 F 11/25/21 14:00 Pulse 96 11/25/21 16:23 Resp 18 11/25/21 14:00 BP 163/83 11/25/21 14:00 Pulse Ox 96 11/25/21 14:00 FiO2 Intake & Output 11/25/21 11/25/21 11/26/21 06:59 18:59 06:59 Intake Total 1035.5 200 Balance 1035.5 200 Weight 38.102 kg Intake: Intake, IV Titration 1035.5 200 Amount Imipenem-Cilastatin 500 100 mg In Sodium Chloride 0.9 % 100 ml @ 220 mls/hr IVPB Q12H [facility] Rx#: [id number] Sodium Chloride 4Meq/ml 1035.5 Vial 44 meq Magnesium Sulfate gm 0.75 gm Calcium Gluconate 1 gm Sodium Phosphate 6 mmol Mvi, Adult No.4 with Vit K 10 ml Trace (Conc-1Ml/ Dose) 1 ml In Amino Acids 5 %/Dextrose 20 % 1,000 ml @ 50 mls/hr IV . [id number] [facility] Rx#:[id number] Tigecycline 50 mg In 100 Sodium Chloride 0.9% 100 ml @ 200 mls/hr IVPB Q12HR [facility] Rx#:[id number] Other: Voiding Method Bedside Commode Bedside Commode # Voids 6 # Bowel Movements 1 - Exam In general patient is alert and oriented x 3 in no distress HEENT head normocephalic and atraumatic Neck is supple no JVD no goiter no lymphadenopathy no carotid bruit Chest examination reveals a scattered crackles in both lung calixto no wheezing Cardiac exam reveals regular heart sounds S1 and S2 no gallops no murmurs Abdomen is soft nontender no organomegaly with normal bowel sounds Extremity exam reveals no edema no cyanosis or clubbing Neurological examination reveals no gross focal deficits - Labs CBC & Chem 7: 11/25/21 05:52 11/27/21 07:06 Labs: Abnormal Lab Results - Last 24 Hours (Table) 11/24/21 11/25/21 11/25/21 Range/Units 14:32 05:52 05:52 WBC 18.17 H (4.50-10.00) X 10*3/uL RBC 3.87 L (4.10-5.20) X 10*6/uL Hgb 10.1 L (12.0-15.0) g/dL Hct 33.6 L (37.2-46.3) % MCH 26.1 L (27.0-32.0) pg MCHC 30.1 L (32.0-37.0) g/dL RDW 15.9 H (11.5-14.5) % Plt Count 535 H (140-440) X 10*3/uL Plt Count Comment INCREASED A Immature Gran # 0.14 H (0.00-0.04) X 10*3/uL Neutrophils # 14.18 H (1.80-7.70) X 10*3/uL Monocytes # 1.52 H (0.20-1.00) X 10*3/uL Potassium 5.4 H (3.5-5.1) mmol/L BUN 74 H (7-17) mg/dL Creatinine 1.32 H (0.52-1.04) mg/dL Phosphorus 4.8 H (2.5-4.5) mg/dL Magnesium 2.4 H (1.6-2.3) mg/dL Alkaline Phosphatase 191 H (38-126) U/L Albumin 3.4 L (3.5-5.0) g/dL Procalcitonin 0.36 H (0.02-0.09) ng/mL Assessment and Plan Plan: Recurrent pneumonia was cough and shortness of breath Evidence of dehydration related to nausea vomiting Malnutrition related to previous gastrectomy maintained on TPN Recurrent aspiration pneumonia Previous history of stroke Underlying history of hypothyroidism Underlying history of spinal stenosis with chronic back pain Underlying history of depression with anxiety At this time patient is admitted to medical floor She was started on IV antibiotic Zosyn and Zithromax in the emergency room will continue with same at this time Consultation for pulmonary and infectious disease initiated For DVT prophylaxis patient on subcu heparin
--- NOTE | 2021-11-27 09:16 | P.PN ---
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 Gregorio infectious disease. She was started on IV antibiotic in the emergency room, will continue with same at this time will resume TPN, consultation for pulmonary and infectious disease were initiated On 11/19/2021 patient was seen and examined on the medical floor she is alert an d oriented 3 in no apparent distress she is complaining of abdominal cramping and diarrhea she is still complaining of cough and shortness of breath otherwise she denies any complaints there is no fever or chills no headache or dizziness no chest pain no nausea or vomiting, no blood in the stools no burning with urination no frequency or urgency and no hematuria. At this time will send a stool sample for C. diff will continue was current management otherwise. On 11/20/2021 patient was seen and examined on the medical floor she is alert and oriented in no distress, she is still complaining of cough and shortness of breath otherwise she denies any complaints there is no fever or chills no h eadache or dizziness no chest pain no nausea or vomiting no abdominal pain no blood in the stools no burning with urination no frequency or urgency no hematuria, patient still complaining of some diarrhea .Will check stools for C. diff On 11/21/2021 patient was seen and examined on the medical floor she is alert and oriented in no distress, she is still complaining of cough and shortness of breath otherwise she denies any complaints there is no fever or chills no headache or dizziness no chest pain no nausea or vomiting no abdominal pain no blood in the stools no burning with urination no frequency or urgency no hematuria, patient still complaining of some diarrhea. On 11/22/2021 patient was seen and examined on the medical floor she is alert and oriented 3 in no apparent distress she is complaining of abdominal pain and cramping otherwise she denies any complaints at this time there is no fever or chills no headache or dizziness no chest pain no shortness of breath no cough no nausea or vomiting no blood in the stools no burning with urination frequency or urgency and no hematuria On 11/23/2021 patient was seen and examined on the medical floor she is alert and oriented 3 in no distress she is still complaining of abdominal discomfort but states has improved since yesterday otherwise she denies any complaints there is no fever or chills no headache or dizziness no chest pain no shortness of breath no cough no nausea or vomiting no diarrhea no blood in the stools no burning with urination no frequency or urgency and no hematuria. Abdomen x-ray and abdomen ultrasound reviewed no acute abnormality of the abdomen. On 11/24/2021 patient was seen and examined on the medical floor she is alert and oriented 3 in no apparent distress there is no fever or chills no headache or dizziness no chest pain no shortness of breath no cough no nausea or vomiting no abdominal pain no diarrhea no blood in the stools no burning with urination no frequency or urgency and no hematuria. Abdominal discomfort has improved medication and labs were reviewed continue with current regimen will follow in a.m. On 11/25/2021 patient was seen and examined on the medical floor she is alert and oriented 3 in no distress she is complaining of shortness of breath with activity her abdominal discomfort has improved there is no fever or chills no headache or dizziness no chest pain no nausea or vomiting no abdominal pain no diarrhea no blood in the stools no burning with urination no frequency or urgency and no hematuria On 11/26/2021 patient is alert and oriented in no distress she is complaining of shortness of breath with activity she is complaining of episodes of vomiting oth erwise she denies any complaints there is no fever or chills no headache or dizziness no chest pain no shortness of breath no cough, no abdominal pain no diarrhea no blood in the stools no burning with urination no frequency or urgency and no hematuria Objective - Vital Signs Vital signs: Vital Signs Temp 98.5 F 11/27/21 08:00 Pulse 111 H 11/27/21 08:00 Resp 15 11/27/21 08:00 BP 174/95 11/27/21 08:00 Pulse Ox 97 11/27/21 08:00 FiO2 Intake & Output 11/26/21 11/27/21 11/27/21 18:59 06:59 18:59 Intake Total 1040 Output Total 1999 Balance -960 Intake: Intake, IV Titration 1040 Amount Sodium Chloride 4Meq/ml 1040 Vial 28 meq Sodium Acetate 24 meq Calcium Gluconate 1 gm Mvi, Adult No.4 with Vit K 10 ml Trace (Conc-1Ml/Dose) 1 ml In Amino Acids 5 %/ Dextrose 20 % 1,000 ml @ 50 mls/hr IV .[id number] [facility] Rx#:[id number] Output: Urine 1999 Other: Voiding Method Bedside Commode Bedside Commode Toilet # Voids 4 4 # Bowel Movements 1 1 - Exam In general patient is alert and oriented x 3 in no distress HEENT head normocephalic and atraumatic Neck is supple no JVD no goiter no lymphadenopathy no carotid bruit Chest examination reveals a scattered crackles in both lung calixto no wheezing Cardiac exam reveals regular heart sounds S1 and S2 no gallops no murmurs Abdomen is soft nontender no organomegaly with normal bowel sounds Extremity exam reveals no edema no cyanosis or clubbing Neurological examination reveals no gross focal deficits - Labs CBC & Chem 7: 11/25/21 05:52 11/27/21 07:06 Labs: Abnormal Lab Results - Last 24 Hours (Table) 11/26/21 11/27/21 Range/Units 20:42 07:06 Sodium 136 L (137-145) mmol/L Potassium 5.3 H (3.5-5.1) mmol/L Carbon Dioxide 20 L (22-30) mmol/L BUN 76 H (7-17) mg/dL Creatinine 1.37 H (0.52-1.04) mg/dL POC Glucose (mg/dL) 131 H (70-110) mg/dL AST 49 H (14-36) U/L ALT 36 H (4-34) U/L Alkaline Phosphatase 211 H (38-126) U/L Assessment and Plan Plan: Recurrent pneumonia was cough and shortness of breath Evidence of dehydration related to nausea vomiting Malnutrition related to previous gastrectomy maintained on TPN Recurrent aspiration pneumonia Previous history of stroke Underlying history of hypothyroidism Underlying history of spinal stenosis with chronic back pain Underlying history of depression with anxiety At this time patient is admitted to medical floor She was started on IV antibiotic Zosyn and Zithromax in the emergency room will continue with same at this time Consultation for pulmonary and infectious disease initiated For DVT prophylaxis patient on subcu heparin
[2021-11-27] MEDS: TIGECYCLINE 50 MG in SODIUM CHLORIDE 0.9% 100 ML IVPB SCH ×2 (10:54→21:37)
--- NOTE | 2021-11-27 12:33 | P.PN ---
Subjective Progress Note Date: 11/27/21 Principal diagnosis: Cough, shortness of breath On 11/22/2021 patient seen in follow-up on medical surgical floor. She is resting comfortably in bed, no signs of any respiratory distress. Breathing comfortably. Room air pulse ox is 90%, she is afebrile, patient is on combina tion of antibiotics with amikacin, tigecycline, and Primaxin for Mycobacterium abscesses. Remains on nebulized bronchodilators. She is 89 able to bring up any phlegm. Blood cultures have shown no growth. Serum pro calcitonin level is low at 0.15, CRP is 3.0. Today's labs have been noted, potassium is 5.6, sodium is 136, B1 is 41, creatinine is 1.18. Patient remains on TPN for nutritional support in addition to a soft diet vital signs have been stable, she's had no fever while inpatient, blood pressure is been stable, no altered mentation. On 11/23/2021 patient seen in follow-up on medical surgical floor. She is resting in bed, still complains of chest discomfort with deep breathing and coughing along the lower bilateral ribs. Does not appear to be in any acute distress, on room air. Her cough was dry, noncongested. She has not been able to provide a sputum sample, she remains on a combination of antibiotics including tigecycline, Primaxin, and amikacin for mycobacterial pulmonary infection. ID service is following. Vitals have been stable, today's labs have been reviewed, her potassium level has been on the rise, 5.6 on yesterday's labs, and at 6.0 on today's labs, sodium is 133, BUN is 56, creatinine is 1.2. Pro calcitonin level was 0.15. Patient remains on TPN with some oral feedings. We spoke to the pharmacist on duty today, and asked them to review the elect rolytes and remove the potassium from the TPN solution. Hyperkalemia will be treated per protocol and BMP will be rechecked. On 11/26/2021 patient seen in follow-up on medical surgical floor. She states she had multiple episodes of vomiting last night. No nausea. She still complains of pain in her rib cage, which is worse since the multiple vomiting episodes. Patient continues on triple antibiotic coverage regarding her Mycobacterium pulmonary infection, with a combination of amikacin, tigecycline, and imipenem. She denies any worsening shortness of breath, other than with exertion, room air pulse ox is 96%, she's been afebrile. Hypertensive today, with a blood pressure 186/100, we'll defer to primary care physician for management of blood pressure. Yesterday's chest x-ray showed stable bilateral areas of consolidation. Today's lab 7 noted, CBC still pending, BMP showed potassium of 5.9, sodium of 138, BUN of 73 and creatinine is 1.35. Serum pro calcitonin level is 0.36, which is worse compared her admission serum pro calcitonin level of 0.15. On 11/27/2021 patient seen in follow-up on medical surgical floor. She denies worsening dyspnea however she has been nauseous, and vomiting, she has been able to eat. She remains on TPN for nutritional support. Her oral mucous membranes are looking dry. She has been taken sips of water. Patient remains on antibiotics with tigecycline, amikacin, and imipenem/cilasttin. Patient has been afebrile, her blood pressure has been running elevated, she remains on room air with pulse ox of 97%. Objective - Vital Signs Vital signs: Vital Signs Temp 98.5 F 11/27/21 08:00 Pulse 100 11/27/21 11:41 Resp 15 11/27/21 08:00 BP 174/95 11/27/21 08:00 Pulse Ox 97 11/27/21 08:00 FiO2 Intake & Output 11/26/21 11/27/21 11/27/21 18:59 06:59 18:59 Intake Total 1040 Output Total 1999 Balance -960 Intake: Intake, IV Titration 1040 Amount Sodium Chloride 4Meq/ml 1040 Vial 28 meq Sodium Acetate 24 meq Calcium Gluconate 1 gm Mvi, Adult No.4 with Vit K 10 ml Trace (Conc-1Ml/Dose) 1 ml In Amino Acids 5 %/ Dextrose 20 % 1,000 ml @ 50 mls/hr IV .[id number] [facility] Rx#:[id number] Output: Urine 1999 Other: Voiding Method Bedside Commode Bedside Commode Toilet # Voids 4 4 # Bowel Movements 1 1 - Exam GENERAL EXAM: Alert, very pleasant, 76-year-old white female, cachectic, on room air pulse ox of 96% but appears to be in no acute distress, on room air comfortable in no apparent distress. HEAD: Normocephalic/atraumatic. EYES: Normal reaction of pupils, equal size. Conjunctiva pink, sclera white. NOSE: Clear with pink turbinates. THROAT: No erythema or exudates. NECK: No masses, no JVD, no thyroid enlargement, no adenopathy. CHEST: No chest wall deformity. Symmetrical expansion. LUNGS: Equal air entry with no crackles, wheeze, rhonchi or dullness. CVS: Regular rate and rhythm, normal S1 and S2, no gallops, no murmurs, no rubs ABDOMEN: Soft, nontender. No hepatosplenomegaly, normal bowel sounds, no guarding or rigidity. EXTREMITIES: No clubbing, no edema, no cyanosis, 2+ pulses and upper and lower extremities. MUSCULOSKELETAL: Muscle strength and tone normal. SPINE: No scoliosis or deformity SKIN: No rashes CENTRAL NERVOUS SYSTEM: Alert and oriented -3. No focal deficits, tone is normal in all 4 extremities. PSYCHIATRIC: Alert and oriented -3. Appropriate affect. Intact judgment and insight. - Labs CBC & Chem 7: 11/25/21 05:52 11/27/21 07:06 Labs: Abnormal Lab Results - Last 24 Hours (Table) 11/26/21 11/27/21 Range/Units 20:42 07:06 Sodium 136 L (137-145) mmol/L Potassium 5.3 H (3.5-5.1) mmol/L Carbon Dioxide 20 L (22-30) mmol/L BUN 76 H (7-17) mg/dL Creatinine 1.37 H (0.52-1.04) mg/dL POC Glucose (mg/dL) 131 H (70-110) mg/dL AST 49 H (14-36) U/L ALT 36 H (4-34) U/L Alkaline Phosphatase 211 H (38-126) U/L Assessment and Plan Plan: #1. Shortness of breath, ilateral rib pain, cough related to recurrent aspiration. COVID-19 PCR, influenza A and B were negative. Chest x-ray showed worsening left perihilar and lower lobe infiltrate, and improving right perihilar infiltrate. 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 BAL culture was sent to the [place] [facility] for identification. ID services on the case, current antibiotics include amikac in, tigecycline, and primaxin #2. Dehydration, related to nausea and vomiting, #3. Chronic pain syndrome, most recently on methadone for pain control #4. Chronic kidney disease stage III at baseline #5. Malnutrition and failure to thrive #6. Recurrent aspiration with multiple hospitalizations, patient is currently on TPN for nutritional support in addition to some oral feedings on soft diet #6. History of gastrectomy #7. Chronic pain syndrome #8. Previous history of CVA #9. History of hypothyroidism #10. History of spinal stenosis and chronic back pain #11. History of chronic anemia of chronic disease #12. Anxiety/depression #13. Hyperkalemia, related to IV infusion via TPN with electrolytes, the TPN for mail will be adjusted and serum potassium was treated protocol Plan: No worsening dyspnea No fever or chills Continue antibiotics per ID service recommendations We'll stop the oral prednisone Continue TPN We'll continue to follow her clinical status I have personally seen and examined the patient and reviewed the documentation. I performed a joint evaluation with the nurse practitioner in this evaluation was done more than 20 minutes. I fully agree with the documentation above and the plan of care.. Note that the patient is having some GI upsets this could be related to use of broad-spectrum antibiotics. We'll monitor her progression. We'll keep the same antibiotic coverage for now. Renal function remains stable with a creatinine of 1.37 and the respiratory distress even a potassium level is down to 5.3. We'll follow. Time with Patient: Less than 30
--- NOTE | 2021-11-27 16:34 | P.PN ---
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 On today's evaluation that is 11/25/2021, the patient remains to be afebrile, the patient is breathing comfortably on room air, patient denies chest pain , the patient did have a cough but no sputum production, the patient denies abdominal pain and the patient diarrhea has improved Objective - Vital Signs Vital signs: Vital Signs Temp 98.4 F 11/25/21 08:00 Pulse 100 11/25/21 11:18 Resp 16 11/25/21 08:00 BP 171/75 11/25/21 08:00 Pulse Ox 96 11/25/21 08:00 FiO2 Intake & Output 11/24/21 11/25/21 11/25/21 18:59 06:59 18:59 Intake Total 1155.5 1035.5 Balance 1155.5 1035.5 Intake: Intake, IV Titration 1035.5 1035.5 Amount Sodium Chloride 4Meq/ml 1035.5 1035.5 Vial 44 meq Magnesium Sulfate gm 0.75 gm Calcium Gluconate 1 gm Sodium Phosphate 6 mmol Mvi, Adult No.4 with Vit K 10 ml Trace (Conc-1Ml/ Dose) 1 ml In Amino Acids 5 %/Dextrose 20 % 1,000 ml @ 50 mls/hr IV . [id number] [facility] Rx#:[id number] Oral 120 Other: Voiding Method Bedside Commode Bedside Commode Bedside Commode # Voids 4 6 # Bowel Movements 1 - Exam GENERAL DESCRIPTION: An elderly female lying in bed in no distress RESPIRATORY SYSTEM: Unlabored breathing , decreased breath sounds at bases HEART: S1 S2 regular rate and rhythm , ABDOMEN: Soft , no tenderness EXTREMITIES: No edema feet - Labs CBC & Chem 7: 11/25/21 05:52 11/27/21 07:06 Labs: Abnormal Lab Results - Last 24 Hours (Table) 11/24/21 11/25/21 11/25/21 Range/Units 14:32 05:52 05:52 WBC 18.17 H (4.50-10.00) X 10*3/uL RBC 3.87 L (4.10-5.20) X 10*6/uL Hgb 10.1 L (12.0-15.0) g/dL Hct 33.6 L (37.2-46.3) % MCH 26.1 L (27.0-32.0) pg MCHC 30.1 L (32.0-37.0) g/dL RDW 15.9 H (11.5-14.5) % Plt Count 535 H (140-440) X 10*3/uL Plt Count Comment INCREASED A Immature Gran # 0.14 H (0.00-0.04) X 10*3/uL Neutrophils # 14.18 H (1.80-7.70) X 10*3/uL Monocytes # 1.52 H (0.20-1.00) X 10*3/uL Potassium 5.4 H (3.5-5.1) mmol/L BUN 74 H (7-17) mg/dL Creatinine 1.32 H (0.52-1.04) mg/dL Phosphorus 4.8 H (2.5-4.5) mg/dL Magnesium 2.4 H (1.6-2.3) mg/dL Alkaline Phosphatase 191 H (38-126) U/L Albumin 3.4 L (3.5-5.0) g/dL Procalcitonin 0.36 H (0.02-0.09) ng/mL Assessment and Plan (1) Pneumonia Current Visit: Yes Status: Acute Code(s): J18.9 - PNEUMONIA, UNSPECIFIED ORGANISM SNOMED Code(s): 019671602 Plan: 1-patient presented to hospital with shortness of breath and cough in this patient did have evidence of cavitating pneumonia on the chest x-ray with recent bronchoscopy culture positive for Mycobacterium abscessus likely the etiology 2-detailed discussion with the micro lab sensitivities has not been finalized 3-patient did have a chest CT on 11/19/2021 with evidence of increase in size and number of cavitating lesion concerning for necrotizing pneumonia 4patient with minimal clinical improvement and will continue with amikacin pharmacy to dose along with with imipenem and tigecycline, and close observation of her kidney function Time with Patient: Less than 30
--- NOTE | 2021-11-27 16:36 | P.PN ---
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 On today's evaluation that is 11/26/2021, the patient continues to be afebrile, the patient is breathing comfortably on room air, patient denies chest pain , the patient denies any worsening cough or sputum production, the patient denies abdominal pain and the patient diarrhea has improved, patient has been asking for steroids Objective - Vital Signs Vital signs: Vital Signs Temp 98.8 F 11/26/21 08:00 Pulse 101 H 11/26/21 08:00 Resp 18 11/26/21 08:00 BP 186/100 11/26/21 08:00 Pulse Ox 96 11/26/21 08:00 FiO2 Intake & Output 11/25/21 11/26/21 11/26/21 18:59 06:59 18:59 Intake Total 200 1540 Balance 200 1540 Weight 38.102 kg Intake: Intake, IV Titration 200 1040 Amount Imipenem-Cilastatin 500 100 mg In Sodium Chloride 0.9 % 100 ml @ 220 mls/hr IVPB Q12H [facility] Rx#: [id number] Sodium Chloride 4Meq/ml 1040 Vial 28 meq Sodium Acetate 24 meq Calcium Gluconate 1 gm Mvi, Adult No.4 with Vit K 10 ml Trace (Conc-1Ml/Dose) 1 ml In Amino Acids 5 %/ Dextrose 20 % 1,000 ml @ 50 mls/hr IV .[id number] [facility] Rx#:[id number] Tigecycline 50 mg In 100 Sodium Chloride 0.9% 100 ml @ 200 mls/hr IVPB Q12HR [facility] Rx#:[id number] Oral 500 Other: Voiding Method Bedside Commode Bedside Commode Bedside Commode # Voids 3 - Exam GENERAL DESCRIPTION: An elderly female lying in bed in no distress RESPIRATORY SYSTEM: Unlabored breathing , decreased breath sounds at bases HEART: S1 S2 regular rate and rhythm , ABDOMEN: Soft , no tenderness EXTREMITIES: No edema feet - Labs CBC & Chem 7: 11/25/21 05:52 11/27/21 07:06 Labs: Abnormal Lab Results - Last 24 Hours (Table) 11/26/21 Range/Units 07:09 Potassium 5.9 H (3.5-5.1) mmol/L BUN 73 H (7-17) mg/dL Creatinine 1.35 H (0.52-1.04) mg/dL Phosphorus 4.8 H (2.5-4.5) mg/dL AST 43 H (14-36) U/L Alkaline Phosphatase 217 H (38-126) U/L Assessment and Plan (1) Pneumonia Current Visit: Yes Status: Acute Code(s): J18.9 - PNEUMONIA, UNSPECIFIED ORGANISM SNOMED Code(s): 178402840 Plan: 1-patient presented to hospital with shortness of breath and cough in this patient did have evidence of cavitating pneumonia on the chest x-ray with recent bronchoscopy culture positive for Mycobacterium abscessus likely the etiology 2-detailed discussion with the micro lab sensitivities has not been finalized 3-patient did have a chest CT on 11/19/2021 with evidence of increase in size and number of cavitating lesion concerning for necrotizing pneumonia 4patient condition remains to be borderline keeping in mind her clinical condition, patient will continue with amikacin pharmacy to dose along with with imipenem and tigecycline, and close observation of her kidney function
--- NOTE | 2021-11-27 16:37 | P.PN ---
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 On today's evaluation that is 11/27/2021, the patient denies any fever or any chills, the patient is breathing comfortably on room air, patient denies chest pain , the patient denies any worsening cough or sputum production, the patient has been combining of feeling nauseated but no vomiting abdominal pain and diarrhea has slowed down Objective - Vital Signs Vital signs: Vital Signs Temp 98.2 F 11/27/21 14:00 Pulse 94 11/27/21 15:19 Resp 16 11/27/21 14:00 BP 149/68 11/27/21 14:00 Pulse Ox 97 11/27/21 14:00 FiO2 Intake & Output 11/26/21 11/27/21 11/27/21 18:59 06:59 18:59 Intake Total 1040 240 Output Total 1999 Balance -960 240 Weight 38.102 kg Intake: Intake, IV Titration 1040 Amount Sodium Chloride 4Meq/ml 1040 Vial 28 meq Sodium Acetate 24 meq Calcium Gluconate 1 gm Mvi, Adult No.4 with Vit K 10 ml Trace (Conc-1Ml/Dose) 1 ml In Amino Acids 5 %/ Dextrose 20 % 1,000 ml @ 50 mls/hr IV .[id number] [facility] Rx#:[id number] Oral 240 Output: Urine 1999 Other: Voiding Method Bedside Commode Bedside Commode Toilet # Voids 4 4 # Bowel Movements 1 1 - Exam GENERAL DESCRIPTION: An elderly female lying in bed in no distress RESPIRATORY SYSTEM: Unlabored breathing , decreased breath sounds at bases HEART: S1 S2 regular rate and rhythm , ABDOMEN: Soft , no tenderness EXTREMITIES: No edema feet - Labs CBC & Chem 7: 11/25/21 05:52 11/27/21 07:06 Labs: Abnormal Lab Results - Last 24 Hours (Table) 11/26/21 11/27/21 Range/Units 20:42 07:06 Sodium 136 L (137-145) mmol/L Potassium 5.3 H (3.5-5.1) mmol/L Carbon Dioxide 20 L (22-30) mmol/L BUN 76 H (7-17) mg/dL Creatinine 1.37 H (0.52-1.04) mg/dL POC Glucose (mg/dL) 131 H (70-110) mg/dL AST 49 H (14-36) U/L ALT 36 H (4-34) U/L Alkaline Phosphatase 211 H (38-126) U/L Assessment and Plan (1) Pneumonia Current Visit: Yes Status: Acute Code(s): J18.9 - PNEUMONIA, UNSPECIFIED ORGANISM SNOMED Code(s): 502058234 Plan: 1-patient presented to hospital with shortness of breath and cough in this patient did have evidence of cavitating pneumonia on the chest x-ray with recent bronchoscopy culture positive for Mycobacterium abscessus likely the etiology 2-detailed discussion with the micro lab sensitivities has not been finalized 3-patient did have a chest CT on 11/19/2021 with evidence of increase in size and number of cavitating lesion concerning for necrotizing pneumonia 4patient is currently being treated amikacin pharmacy to dose along with with imipenem and tigecycline, 5-the patient did have slight worsening of the liver enzymes and creatinine will be monitored closely Time with Patient: Less than 30
[2021-11-27] MEDS: FERROUS SULFATE 325 MG TAB PO SCH (16:44)
[2021-11-27] MEDS: SODIUM CHLORIDE 0.9% 1,000 ML IV SCH (16:44)
[2021-11-27] MEDS ORDERED: IOPAMIDOL CONTRAST (ORAL USE) VIAL PO PRN (16:59)
--- NOTE | 2021-11-27 17:19 | P.PN ---
Subjective Progress Note Date: 11/27/21 On 11/18/2021 patient was seen and examined on the medical floor she is alert and oriented 3 in no apparent distress, she is complaining of cough and shortness of breath otherwise she denies any complaints, patient has a prolonged past medical history with recurrent admissions to assess Hospital was pneumonia she had a bronchoscopy was Dr. 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 Gregorio infectious disease. She was started on IV antibiotic in the emergency room, will continue with same at this time will resume TPN, consultation for pulmonary and infectious disease were initiated On 11/19/2021 patient was seen and examined on the medical floor she is alert an d oriented 3 in no apparent distress she is complaining of abdominal cramping and diarrhea she is still complaining of cough and shortness of breath otherwise she denies any complaints there is no fever or chills no headache or dizziness no chest pain no nausea or vomiting, no blood in the stools no burning with urination no frequency or urgency and no hematuria. At this time will send a stool sample for C. diff will continue was current management otherwise. On 11/20/2021 patient was seen and examined on the medical floor she is alert and oriented in no distress, she is still complaining of cough and shortness of breath otherwise she denies any complaints there is no fever or chills no h eadache or dizziness no chest pain no nausea or vomiting no abdominal pain no blood in the stools no burning with urination no frequency or urgency no hematuria, patient still complaining of some diarrhea .Will check stools for C. diff On 11/21/2021 patient was seen and examined on the medical floor she is alert and oriented in no distress, she is still complaining of cough and shortness of breath otherwise she denies any complaints there is no fever or chills no headache or dizziness no chest pain no nausea or vomiting no abdominal pain no blood in the stools no burning with urination no frequency or urgency no hematuria, patient still complaining of some diarrhea. On 11/22/2021 patient was seen and examined on the medical floor she is alert and oriented 3 in no apparent distress she is complaining of abdominal pain and cramping otherwise she denies any complaints at this time there is no fever or chills no headache or dizziness no chest pain no shortness of breath no cough no nausea or vomiting no blood in the stools no burning with urination frequency or urgency and no hematuria On 11/23/2021 patient was seen and examined on the medical floor she is alert and oriented 3 in no distress she is still complaining of abdominal discomfort but states has improved since yesterday otherwise she denies any complaints there is no fever or chills no headache or dizziness no chest pain no shortness of breath no cough no nausea or vomiting no diarrhea no blood in the stools no burning with urination no frequency or urgency and no hematuria. Abdomen x-ray and abdomen ultrasound reviewed no acute abnormality of the abdomen. On 11/24/2021 patient was seen and examined on the medical floor she is alert and oriented 3 in no apparent distress there is no fever or chills no headache or dizziness no chest pain no shortness of breath no cough no nausea or vomiting no abdominal pain no diarrhea no blood in the stools no burning with urination no frequency or urgency and no hematuria. Abdominal discomfort has improved medication and labs were reviewed continue with current regimen will follow in a.m. On 11/25/2021 patient was seen and examined on the medical floor she is alert and oriented 3 in no distress she is complaining of shortness of breath with activity her abdominal discomfort has improved there is no fever or chills no headache or dizziness no chest pain no nausea or vomiting no abdominal pain no diarrhea no blood in the stools no burning with urination no frequency or urgency and no hematuria On 11/26/2021 patient is alert and oriented in no distress she is complaining of shortness of breath with activity she is complaining of episodes of vomiting oth erwise she denies any complaints there is no fever or chills no headache or dizziness no chest pain no shortness of breath no cough, no abdominal pain no diarrhea no blood in the stools no burning with urination no frequency or urgency and no hematuria. On 11/27/2021 patient was seen and examined on the medical floor she is alert and oriented 3 in no apparent distress she is still complaining of abdominal discomfort and vomiting otherwise she denies any complaints there is no fever or chills no headache or dizziness no chest pain no shortness of breath no cough no urinary symptoms. At this time will check computed tomography scan of the abdomen and pelvis with oral contrast, Will consult Dr. auguste for evaluation of abdominal pain and vomiting Objective - Vital Signs Vital signs: Vital Signs Temp 98.5 F 11/27/21 08:00 Pulse 111 H 11/27/21 08:00 Resp 15 11/27/21 08:00 BP 174/95 11/27/21 08:00 Pulse Ox 97 11/27/21 08:00 FiO2 Intake & Output 11/26/21 11/27/21 11/27/21 18:59 06:59 18:59 Intake Total 1040 Output Total 1999 Balance -960 Intake: Intake, IV Titration 1040 Amount Sodium Chloride 4Meq/ml 1040 Vial 28 meq Sodium Acetate 24 meq Calcium Gluconate 1 gm Mvi, Adult No.4 with Vit K 10 ml Trace (Conc-1Ml/Dose) 1 ml In Amino Acids 5 %/ Dextrose 20 % 1,000 ml @ 50 mls/hr IV .[id number] [facility] Rx#:[id number] Output: Urine 1999 Other: Voiding Method Bedside Commode Bedside Commode Toilet # Voids 4 4 # Bowel Movements 1 1 - Exam In general patient is alert and oriented x 3 in no distress HEENT head normocephalic and atraumatic Neck is supple no JVD no goiter no lymphadenopathy no carotid bruit Chest examination reveals a scattered crackles in both lung calixot no wheezing Cardiac exam reveals regular heart sounds S1 and S2 no gallops no murmurs Abdomen is soft nontender no organomegaly with normal bowel sounds Extremity exam reveals no edema no cyanosis or clubbing Neurological examination reveals no gross focal deficits - Labs CBC & Chem 7: 11/25/21 05:52 11/27/21 07:06 Labs: Abnormal Lab Results - Last 24 Hours (Table) 11/26/21 11/27/21 Range/Units 20:42 07:06 Sodium 136 L (137-145) mmol/L Potassium 5.3 H (3.5-5.1) mmol/L Carbon Dioxide 20 L (22-30) mmol/L BUN 76 H (7-17) mg/dL Creatinine 1.37 H (0.52-1.04) mg/dL POC Glucose (mg/dL) 131 H (70-110) mg/dL AST 49 H (14-36) U/L ALT 36 H (4-34) U/L Alkaline Phosphatase 211 H (38-126) U/L Assessment and Plan Plan: Recurrent pneumonia was cough and shortness of breath Evidence of dehydration related to nausea vomiting Malnutrition related to previous gastrectomy maintained on TPN Recurrent aspiration pneumonia Previous history of stroke Underlying history of hypothyroidism Underlying history of spinal stenosis with chronic back pain Underlying history of depression with anxiety At this time patient is admitted to medical floor She was started on IV antibiotic Zosyn and Zithromax in the emergency room will continue with same at this time Consultation for pulmonary and infectious disease initiated For DVT prophylaxis patient on subcu heparin
--- NOTE | 2021-11-27 18:53 | CT ---
EXAMINATION TYPE: CT abdomen pelvis wo con CT DLP: 289.1 mGycm, Automated exposure control for dose reduction was used. DATE OF EXAM: 11/27/2021 6:41 PM COMPARISON: CT abdomen pelvis most recent from 04/21/2020 CLINICAL INDICATION:Female, 76 years old with history of abdominal pain, vomiting; Abdominal pain, vo miting TECHNIQUE: Axial CT of the abdomen and pelvis. Sagittal and coronal reformats were created on a [employer] workstation. Contrast used: None Oral contrast used: with Oral Contrast FINDINGS: LOWER CHEST: Consolidation is seen lung bases left greater than right. ABDOMEN LIVER: Unremarkable GALLBLADDER AND BILE DUCTS: Unremarkable. PANCREAS: Unremarkable. SPLEEN: Unremarkable. ADRENAL GLANDS: Unremarkable. KIDNEYS AND URETERS: The right kidney is atrophic. There is hyperdense/proteinaceous left renal cyst. No evidence of hydronephrosis or renal calculus. The ureters are unremarkable. PELVIS BLADDER: Unremarkable REPRODUCTIVE: Unremarkable. ABDOMEN & PELVIS STOMACH AND BOWEL: Hiatal hernia is present with small bowel seen entering the inferior mediastinum. Gastric lumen is not definitively visualized and may be surgically absent. Limited evaluation of the bowel demonstrates dilated proximal bowel measuring up to 3.1 cm containing oral contrast. There is a large caliber of small bowel in the anterior low abdomen containing small bowel feces. Evaluation of bowel is very limited given the paucity of intra-abdominal fat and close proximity to adjacent struc tures. There is felt to be related at least partial small bowel obstruction present. There is large s tool burden in the right abdomen likely in the colon. PERITONEUM: No evidence of pneumoperitoneum or free fluid. Surgical clips are seen anterior abdomen. VASCULATURE: No evidence of aortic aneurysm. MUSCULOSKELETAL: No acute osseous abnormalities, total left hip arthroplasty changes with heterotroph ic calcifications. There is surgical fixation changes to L4-L5 hardware appearing intact. The grade 1 anterolisthesis of L4 on L5 with hardware in place. LYMPH NODES: No gross evidence for lymphadenopathy. SOFT TISSUE/ABDOMINAL WALL: There is diffuse anasarca present. IMPRESSION: 1. Very limited evaluation of the small bowel secondary to noncontrast technique and patient's body habitus. There is multiple proximal dilated loops of small bowel which demonstrates contrast extendin g into and area of small bowel feces. Underlying small bowel obstruction is likely present. Follow-up abdominal radiographs of the abdomen to follow the oral contrast is recommended. 2. Consolidation changes within the lung bases, correlate for underlying pneumonia and/or aspiration ..
[2021-11-27] MEDS: MIRTAZAPINE 45 MG TABLET PO SCH (22:25)
[2021-11-27] MEDS: [UNRECOGNIZED DRUG - OTHER] IV SCH ×6 (22:25)
[2021-11-28] MEDS: HYDROmorphone 0.5 MG/0.5 ML SYRINGE IVP PRN ×4 (02:45→17:43)
[2021-11-28] MEDS: IMIPENEM CILASTATIN IVPB SCH ×2 (03:30→15:28)
[2021-11-28] MEDS: SODIUM CHLORIDE 0.9% IVPB SCH ×3 (03:30→15:28)
[2021-11-28] MEDS: BUTALB/APAP/CAFF 50-325-40MG TAB PO PRN ×3 (05:26→17:43)
[2021-11-28] MEDS: AMIKACIN SULFATE IVPB SCH (05:28)
[2021-11-28] MEDS: LEVOTHYROXINE 100 MCG TAB PO SCH (06:02)
[2021-11-28] MEDS: IPRATROPIUM-ALBUTEROL 3 ML NEB INHALATION SCH ×4 (07:15→20:15)
[2021-11-28] MEDS: SYMBICORT 160-4.5 MCG INHALER INHALATION SCH ×2 (07:15→20:15)
[2021-11-28] MEDS: buPROPion XL 300 MG TAB.ER.24H PO SCH (07:42)
[2021-11-28] MEDS: busPIRone HCl 10 MG TAB PO SCH ×2 (07:42→21:22)
[2021-11-28] MEDS: SODIUM BICARBONATE TAB 650 MG TAB PO SCH (07:42)
[2021-11-28] MEDS: ASPIRIN 81 MG PO SCH (07:42)
[2021-11-28] MEDS: hydrOXYzine pamoate 25 MG CAP PO SCH ×3 (07:43→21:22)
[2021-11-28] MEDS: METHADONE 10 MG TAB PO SCH ×2 (07:43→21:23)
[2021-11-28] MEDS: predniSONE 10 MG TAB PO SCH (07:43)
[2021-11-28] MEDS: PANTOPRAZOLE 40 MG TABLET PO SCH (07:43)
[2021-11-28] MEDS: guaiFENesin 600 MG TABLET.ER PO SCH ×2 (07:43→21:22)
[2021-11-28] MEDS: PARoxetine 10 MG TAB PO SCH (07:43)
[2021-11-28] MEDS: LORATADINE 10 MG TAB PO SCH (07:43)
[2021-11-28] MEDS: HEPARIN SODIUM,PORCINE/PF 5,000 UNIT/0.5 ML SYRINGE SQ SCH ×2 (07:44→21:26)
[2021-11-28] MEDS: CHOLESTYRAMINE (WITH SUGAR) 4 GM PACKET PO SCH ×2 (07:44→17:40)
[2021-11-28] MEDS: ONDANSETRON ODT 4 MG TAB PO PRN (07:59)
[2021-11-28] MEDS: TIGECYCLINE 50 MG in SODIUM CHLORIDE 0.9% 100 ML IVPB SCH ×2 (08:59→21:43)
[2021-11-28 09:00] LABS: ALT 25 U/L (4-34); African American GFR (CKD) 42 (>60 ml/min/1.73 sqM); Albumin 3.6 g/dL (3.5-5.0); Albumin/Globulin Ratio 1.2; Anion Gap 15 mmol/L; Blood Urea Nitrogen 90 mg/dL (7-17); C Reactive Protein 5.3 mg/dL (<1.0); Carbon Dioxide 22 mmol/L (22-30); Chloride 99 mmol/L (98-107); Glucose 84 mg/dL (74-99); Non-African American GFR(CKD) 37 (>60 ml/min/1.73 sqM); Sodium 136 mmol/L (137-145); Total Bilirubin 0.4 mg/dL (0.2-1.3); Total Protein 6.6 g/dL (6.3-8.2)
[2021-11-28 09:04] LABS: AST 35 U/L (14-36); Calcium 9.2 mg/dL (8.4-10.2); Magnesium 1.9 mg/dL (1.6-2.3); Phosphorus 4.3 mg/dL (2.5-4.5)
[2021-11-28 09:05] LABS: Alkaline Phosphatase 217 U/L (38-126)
[2021-11-28 10:29] LABS: Basophils # (A) 0.07 X 10*3/uL (0.00-0.10); Basophils % (A) 0.4 %; Eosinophils # (A) 0.17 X 10*3/uL (0.04-0.35); Eosinophils % (A) 0.9 %; HCT 35.6 % (37.2-46.3); HGB 11.1 g/dL (12.0-15.0); Immature Grans, Automated 0.5 %; Lymphocytes # (A) 2.14 X 10*3/uL (0.90-5.00); Lymphocytes % (A) 10.9 %; MCH 27.1 pg (27.0-32.0); MCHC 31.2 g/dL (32.0-37.0); Mean Platelet Volume 10.6 fL (9.5-12.2); Monocytes # (A) 1.46 X 10*3/uL (0.20-1.00); Monocytes % (A) 7.4 %; NRBC Per 100 WBC 0 /100 WBCS (0.0-0.0); Neutrophils # (A) 15.77 X 10*3/uL (1.80-7.70); Neutrophils % (A) 79.9 %; Platelet Count 454 X 10*3/uL (140-440); RBC 4.09 X 10*6/uL (4.10-5.20); RDW 15.7 % (11.5-14.5)
--- NOTE | 2021-11-28 13:27 | XR ---
EXAMINATION TYPE: XR abdomen 2V DATE OF EXAM: 11/28/2021 COMPARISON: 11/22/2021 HISTORY: Abdominal pain TECHNIQUE: One view abdominal series FINDINGS: The osseous structures are intact. The bowel gas pattern is nonspecific. A basilar subsegmental matthews ges are seen with small effusion or pleural thickening. Postsurgical change in the epigastric region and left hip and vertebral column. Contrast is seen in the small bowel distally on today's exam. IMPRESSION: 1. Contrast is seen within prominent small bowel loops in the lower pelvis. Could be on the basis of an ileus or partial obstruction correlate clinically. 2. Bibasilar lower lobe atelectasis or infiltrate with pleural thickening or tiny effusion.
--- NOTE | 2021-11-28 13:45 | P.GSCN ---
History of Present Illness Consult date: 11/28/21 History of present illness: CHIEF COMPLAINT: Shortness of breath HISTORY OF PRESENT ILLNESS: This is a 76-year-old female who presented [facility] worsening shortness of breath. She is diagnosed with possible aspiration pneumonia. Surgical service was consulted in regards to patient's abdominal pain. Patient had been having nausea and some episodes of vomiting. She also is having diarrhea. The last episode of diarrhea was 2 days ago. She did report having some flatus. This mornings emesis she reports was mostly a cough induced with phlegm and not a true emesis. Patient does have a history of total gastrectomy and esophagojejunostomy. She has a known history of esophageal dysmotility disorder. She is following up with [facility]. She is also on TPN for nutritional support. She had computed tomography scan abdomen and pelvis which was a limited exam of the small bowel secondary to noncontrast technique and patient's body habitus. There is multiple proximal dilated loops of small bowel which demonstrates contrast extending into and an area of small bowel feces. Underlying small bowel obstruction is likely present. Dr. Jerome did review CAT scan results and he is concerned for small bowel obstruction. Patient denies any fever chills or sweats. WBC is elevated PAST MEDICAL HISTORY: See list. PAST SURGICAL HISTORY: See list. MEDICATIONS: See list. ALLERGIES: See list. SOCIAL HISTORY: No illicit drug use. REVIEW OF SYSTEMS: CONSTITUTIONAL: Denies fever or chills. HEENT: Denies blurred vision, vision changes, or eye pain. Denies hemoptysis CARDIOVASCULAR: Denies chest pain or pressure. RESPIRATORY: No shortness of breath. GASTROINTESTINAL: See HPI for pertinent findings HEMATOLOGIC: Denies bleeding disorders. GENITOURINARY: Denies any blood in urine or increased urinary frequency. SKIN: Denies pruitis. Denies rash. PHYSICAL EXAM: VITAL SIGNS: Reviewed GENERAL: Well-developed in no acute distress. HEENT: No sclera icterus. Extraocular movements grossly intact. Moist buccal mucosa. Head is atraumatic, normocephalic. No nasal drainage. ABDOMEN: Soft. Nondistended. Diffuse tenderness. NEUROLOGIC: Alert and oriented. Cranial nerves II through XII grossly intact. LABORATORY DATA: WBC is 19.7 hgb 11.1 platelets 454 Sodium 136 potassium 6.0 creatinine 1.42 IMAGING: CT as stated above Abdominal x-ray contrast is seen within prominent small bowel loops in the lower pelvis. Could be on the basis of an ileus or partial obstruction correlate Clinically. Bibasilar lower lobe atelectasis or infiltrate with pleural thickening or tiny effusion ASSESSMENT: 1. Small bowel obstruction 2. History of gastrectomy and esophagojejunostomy 3. History of esophageal dysmotility 4. Recurrent aspiration pneumonia PLAN: -Keep patient nothing by mouth -Patient scheduled for exploratory laparotomy with possible small bowel resection with Dr. Guadalupe tomorrow, 11/29/2021 -Continue supportive care -Medicine service to correct hyperkalemia Thank you for this consultation Physician Costing Manager note has been reviewed by physician. Signing provider agrees with the documented findings, assessment, and plan of care. I have personally seen and examined the patient, reviewed the RECREATIONAL PROGRAMS DIRECTOR /PAs history, exam and MDM and agree with the assessment and plan as written. Based on total visit time, I have performed more than 50% of the visit. As above: Patient admitted with episodes of vomiting, and diarrhea. Patient had a CAT scan performed that appears to demonstrate small bowel distention with possible small bowel feces sign. Patient with history of recurrent aspiration pneumonia that was thought to be related to esophageal dysmotility after patient's previous total gastrectomy with esophagojejunal jejunostomy. Repeat abdominal x-rays performed this afternoon shows contrast to be in the distal small bowel and possibly in the cecum as well. No vomiting today. At the time of the patient's last evaluation we suggested she follow up with her [facility] surgical team to discuss possible enteral tube placement. Patient states she never saw them. Her sister is now her guardian. I will discuss her case with her sister by phone. Repeat CT pelvis ordered for tomorrow to evaluate degree of small bowel distention and presence of contrast within cecum. Will follow. Past Medical History Past Medical History: Asthma, COPD, CVA/TIA, GERD/Reflux, Memory Impairment, Osteoarthritis (OA), Pneumonia, Renal Disease, Respiratory Disorder, Thyroid Disorder Additional Past Medical History / Comment(s): Aspiration, pneumonias, covid pneumonia, protein calorie malnutrition, pt was on TPN with PICC line managed thru [facility], chronic anemia, gastric ulcers/PUD, pancreatitis, bowel obstruction/surgery, constipation, CKD stage IV, TIA, chronic migraines, chronic back/cervical pain/spinal stenosis, hypothyroid, hyponatremia. DAILY TPN History of Any Multi-Drug Resistant Organisms: None Reported, Other MDRO Year Discovered:: 2021 MDRO Source:: urine Past Surgical History: Back Surgery, Bowel Resection, Hysterectomy, Joint Replacement Additional Past Surgical History / Comment(s): LOWER BACK SURGERY lamenectomy/discetomy then had a revison of that sx. 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, nasal sx d/t broken nose, colonoscopy/egd, PAIN CLINIC PROCEDURES, PORT A CATH INSERTION, LT ADEOLA Past Anesthesia/Blood Transfusion Reactions: No Reported Reaction Additional Past Anesthesia/Blood Transfusion Reaction / Comm: PT RECEIVED BLOOD TRANSFUSIONS AFTER STOMACH SURGERY Past Psychological History: Anxiety, Depression, Panic Disorder Smoking Status: Never smoker Past Alcohol Use History: None Reported Past Drug Use History: None Reported - Past Family History Father Family Medical History: Cancer, Coronary Artery Disease (CAD) Additional Family Medical History / Comment(s): FATHER HAD BLADDER AND KIDNEY CANCER. FATHER HAD TB WHEN HE WAS A CHILD .FATHER AT AGE 87. Mother Family Medical History: Cancer Additional Family Medical History / Comment(s): MOTHER AT AGE 58 OF OVARIAN CANCER. Medications and Allergies Home Medications Medication Instructions Recorded Confirmed Type Ferrous Sulfate [Iron (65 MG 325 mg PO DAILY@1200 11/06/15 11/17/21 History Elemental)] calcitrioL [Calcitriol] 1 mcg PO MOWEFR 06/07/19 11/17/21 History busPIRone HCL [Buspar] 30 mg PO BID 04/14/20 11/17/21 History Butalb/APAP/Caff 50-325-40Mg 1 tab PO Q6H PRN 06/30/20 11/17/21 History [Fioricet 50-325-40] Albuterol Sulfate [Albuterol 2 puff INHALATION RT-Q6H PRN 04/07/21 11/17/21 History Sulfate Hfa] Budesonide/Formoterol Fumarate 2 puff INHALATION RT-BID 04/07/21 11/17/21 History [Symbicort 160-4.5 Mcg Inhaler] Aspirin EC [Ecotrin Low Dose] 81 mg PO DAILY 05/12/21 11/17/21 History Levothyroxine Sodium [Synthroid] 100 mcg PO DAILY@0630 30 Days #30 06/19/21 11/17/21 Rx tab Furosemide [Lasix] 20 mg PO DAILY PRN 08/08/21 11/17/21 History Omeprazole 20 mg PO DAILY 08/08/21 11/17/21 History hydrOXYzine pamoate [Vistaril] 50 mg PO TID 08/08/21 11/17/21 History polyethylene glycoL 3350 [Miralax] 17 gm PO DAILY PRN 08/08/21 11/17/21 History Sodium Bicarbonate Tab 650 mg PO DAILY 30 Days #30 tab 08/21/21 11/17/21 Rx Mirtazapine [Remeron] 45 mg PO HS 09/01/21 11/17/21 History Ondansetron [Zofran] 4 mg PO Q6H PRN 09/01/21 11/17/21 History Methadone [Dolophine] 20 mg PO BID tab 09/10/21 11/17/21 Rx Potassium Chloride ER [K-Dur 10] 30 meq PO DAILY PRN 10/08/21 11/17/21 History buPROPion XL [Wellbutrin XL] 300 mg PO DAILY 10/08/21 11/17/21 History Loratadine [Claritin] 10 mg PO DAILY 10/28/21 11/17/21 History Acetaminophen Tab [Tylenol] 650 mg PO Q6HR PRN tab 10/29/21 11/17/21 Rx Ondansetron Odt [Zofran Odt] 4 mg PO Q8HR PRN #15 tab 11/06/21 11/17/21 Rx PARoxetine [Paxil] 10 mg PO DAILY 11/17/21 11/17/21 History Allergies Allergy/AdvReac Type Severity Reaction Status Date / Time mold Allergy Itching Verified 11/17/21 15:42 denosumab [From Prolia] AdvReac SEVERE Verified 11/17/21 15:42 CALCIUM LOSS morphine AdvReac Confusion Verified 11/17/21 15:42 DUST Allergy Itching Uncoded 11/17/21 15:42 Surgical - Exam Vital Signs Temp Pulse Resp BP Pulse Ox 97.9 F 111 H 18 157/96 96 11/17/21 12:47 11/17/21 12:47 11/17/21 12:47 11/17/21 12:47 11/17/21 12:47 Results - Labs 11/28/21 06:51 11/28/21 06:51 Abnormal Lab Results - Last 24 Hours (Table) 11/28/21 11/28/21 Range/Units 06:51 06:51 WBC 19.70 H (4.50-10.00) X 10*3/uL RBC 4.09 L (4.10-5.20) X 10*6/uL Hgb 11.1 L (12.0-15.0) g/dL Hct 35.6 L (37.2-46.3) % MCHC 31.2 L (32.0-37.0) g/dL RDW 15.7 H (11.5-14.5) % Plt Count 454 H (140-440) X 10*3/uL Immature Gran # 0.09 H (0.00-0.04) X 10*3/uL Neutrophils # 15.77 H (1.80-7.70) X 10*3/uL Monocytes # 1.46 H (0.20-1.00) X 10*3/uL Sodium 136 L (137-145) mmol/L Potassium 6.0 H (3.5-5.1) mmol/L BUN 90 H (7-17) mg/dL Creatinine 1.42 H (0.52-1.04) mg/dL Alkaline Phosphatase 217 H (38-126) U/L C-Reactive Protein 5.3 H (<1.0) mg/dL Diabetes panel 11/28/21 Range/Units 06:51 Sodium 136 L (137-145) mmol/L Potassium 6.0 H (3.5-5.1) mmol/L Chloride 99 (98-107) mmol/L Carbon Dioxide 22 (22-30) mmol/L BUN 90 H (7-17) mg/dL Creatinine 1.42 H (0.52-1.04) mg/dL Glucose 84 (74-99) mg/dL Calcium 9.2 (8.4-10.2) mg/dL AST 35 (14-36) U/L ALT 25 (4-34) U/L Alkaline Phosphatase 217 H (38-126) U/L Total Protein 6.6 (6.3-8.2) g/dL Albumin 3.6 (3.5-5.0) g/dL Calcium panel 11/28/21 11/28/21 Range/Units 06:51 06:51 Calcium 9.2 (8.4-10.2) mg/dL Ionized Calcium Tomas 5.0 (4.5-5.3) mg/dL Phosphorus 4.3 Cancelled (2.5-4.5) mg/dL Albumin 3.6 (3.5-5.0) g/dL Pituitary panel 11/28/21 Range/Units 06:51 Sodium 136 L (137-145) mmol/L Potassium 6.0 H (3.5-5.1) mmol/L Chloride 99 (98-107) mmol/L Carbon Dioxide 22 (22-30) mmol/L BUN 90 H (7-17) mg/dL Creatinine 1.42 H (0.52-1.04) mg/dL Glucose 84 (74-99) mg/dL Calcium 9.2 (8.4-10.2) mg/dL Adrenal panel 11/28/21 Range/Units 06:51 Sodium 136 L (137-145) mmol/L Potassium 6.0 H (3.5-5.1) mmol/L Chloride 99 (98-107) mmol/L Carbon Dioxide 22 (22-30) mmol/L BUN 90 H (7-17) mg/dL Creatinine 1.42 H (0.52-1.04) mg/dL Glucose 84 (74-99) mg/dL Calcium 9.2 (8.4-10.2) mg/dL Total Bilirubin 0.4 (0.2-1.3) mg/dL AST 35 (14-36) U/L ALT 25 (4-34) U/L Alkaline Phosphatase 217 H (38-126) U/L Total Protein 6.6 (6.3-8.2) g/dL Albumin 3.6 (3.5-5.0) g/dL
[2021-11-28] MEDS: SODIUM CHLORIDE 0.9% 1,000 ML IV SCH (15:29)
[2021-11-28] MEDS ORDERED: DEXTROSE 50% SYRINGE 50 ML IVP STA (15:47)
[2021-11-28] MEDS ORDERED: INSULIN REGULAR 100 UNIT/ML VIAL (IV) IV ONE (15:47)
[2021-11-28] MEDS ORDERED: CALCIUM GLUCONATE IN NACL 1 GM in SALINE 1 100ML.BAG IVPB ONE (15:47)
--- NOTE | 2021-11-28 15:47 | P.PN ---
Subjective Progress Note Date: 11/28/21 Principal diagnosis: Cough, shortness of breath On 11/22/2021 patient seen in follow-up on medical surgical floor. She is resting comfortably in bed, no signs of any respiratory distress. Breathing comfortably. Room air pulse ox is 90%, she is afebrile, patient is on combina tion of antibiotics with amikacin, tigecycline, and Primaxin for Mycobacterium abscesses. Remains on nebulized bronchodilators. She is 89 able to bring up any phlegm. Blood cultures have shown no growth. Serum pro calcitonin level is low at 0.15, CRP is 3.0. Today's labs have been noted, potassium is 5.6, sodium is 136, B1 is 41, creatinine is 1.18. Patient remains on TPN for nutritional support in addition to a soft diet vital signs have been stable, she's had no fever while inpatient, blood pressure is been stable, no altered mentation. On 11/23/2021 patient seen in follow-up on medical surgical floor. She is resting in bed, still complains of chest discomfort with deep breathing and coughing along the lower bilateral ribs. Does not appear to be in any acute distress, on room air. Her cough was dry, noncongested. She has not been able to provide a sputum sample, she remains on a combination of antibiotics including tigecycline, Primaxin, and amikacin for mycobacterial pulmonary infection. ID service is following. Vitals have been stable, today's labs have been reviewed, her potassium level has been on the rise, 5.6 on yesterday's labs, and at 6.0 on today's labs, sodium is 133, BUN is 56, creatinine is 1.2. Pro calcitonin level was 0.15. Patient remains on TPN with some oral feedings. We spoke to the pharmacist on duty today, and asked them to review the elect rolytes and remove the potassium from the TPN solution. Hyperkalemia will be treated per protocol and BMP will be rechecked. On 11/26/2021 patient seen in follow-up on medical surgical floor. She states she had multiple episodes of vomiting last night. No nausea. She still complains of pain in her rib cage, which is worse since the multiple vomiting episodes. Patient continues on triple antibiotic coverage regarding her Mycobacterium pulmonary infection, with a combination of amikacin, tigecycline, and imipenem. She denies any worsening shortness of breath, other than with exertion, room air pulse ox is 96%, she's been afebrile. Hypertensive today, with a blood pressure 186/100, we'll defer to primary care physician for management of blood pressure. Yesterday's chest x-ray showed stable bilateral areas of consolidation. Today's lab 7 noted, CBC still pending, BMP showed potassium of 5.9, sodium of 138, BUN of 73 and creatinine is 1.35. Serum pro calcitonin level is 0.36, which is worse compared her admission serum pro calcitonin level of 0.15. On 11/27/2021 patient seen in follow-up on medical surgical floor. She denies worsening dyspnea however she has been nauseous, and vomiting, she has been able to eat. She remains on TPN for nutritional support. Her oral mucous membranes are looking dry. She has been taken sips of water. Patient remains on antibiotics with tigecycline, amikacin, and imipenem/cilasttin. Patient has been afebrile, her blood pressure has been running elevated, she remains on room air with pulse ox of 97%. On 11/28/2021 patient is seen in follow-up on medical surgical floor. She states she still not able to keep much down, she has been nauseous and having frequent episodes of vomiting. From pulmonary perspective she still complaining of some pain under the rib cage with deep breathing and coughing, she remains on room air, she does not appear to be in any respiratory distress, she's been afebrile, remains on antibiotics with tigecycline, amikacin, and imipenem/cilasttin. remains on TPN for antibiotic coverage.today's labs reviewed Objective - Vital Signs Vital signs: Vital Signs Temp 98.2 F 11/28/21 14:00 Pulse 106 H 11/28/21 14:00 Resp 17 11/28/21 14:00 BP 134/72 11/28/21 14:00 Pulse Ox 99 11/28/21 14:00 FiO2 Intake & Output 11/27/21 11/28/21 11/28/21 18:59 06:59 18:59 Intake Total 240 Balance 240 Weight 38.102 kg Intake: Oral 240 Other: Voiding Method Toilet Bedside Commode # Voids 3 4 # Bowel Movements 0 1 - Exam GENERAL EXAM: Alert, very pleasant, 76-year-old white female, cachectic, on room air pulse ox of 96% but appears to be in no acute distress, on room air comfortable in no apparent distress. HEAD: Normocephalic/atraumatic. EYES: Normal reaction of pupils, equal size. Conjunctiva pink, sclera white. NOSE: Clear with pink turbinates. THROAT: No erythema or exudates. NECK: No masses, no JVD, no thyroid enlargement, no adenopathy. CHEST: No chest wall deformity. Symmetrical expansion. LUNGS: Equal air entry with no crackles, wheeze, rhonchi or dullness. CVS: Regular rate and rhythm, normal S1 and S2, no gallops, no murmurs, no rubs ABDOMEN: Soft, nontender. No hepatosplenomegaly, normal bowel sounds, no g uarding or rigidity. EXTREMITIES: No clubbing, no edema, no cyanosis, 2+ pulses and upper and lower extremities. MUSCULOSKELETAL: Muscle strength and tone normal. SPINE: No scoliosis or deformity SKIN: No rashes CENTRAL NERVOUS SYSTEM: Alert and oriented -3. No focal deficits, tone is normal in all 4 extremities. PSYCHIATRIC: Alert and oriented -3. Appropriate affect. Intact judgment and insight. - Labs CBC & Chem 7: 11/28/21 06:51 11/28/21 06:51 Labs: Abnormal Lab Results - Last 24 Hours (Table) 11/28/21 11/28/21 Range/Units 06:51 06:51 WBC 19.70 H (4.50-10.00) X 10*3/uL RBC 4.09 L (4.10-5.20) X 10*6/uL Hgb 11.1 L (12.0-15.0) g/dL Hct 35.6 L (37.2-46.3) % MCHC 31.2 L (32.0-37.0) g/dL RDW 15.7 H (11.5-14.5) % Plt Count 454 H (140-440) X 10*3/uL Immature Gran # 0.09 H (0.00-0.04) X 10*3/uL Neutrophils # 15.77 H (1.80-7.70) X 10*3/uL Monocytes # 1.46 H (0.20-1.00) X 10*3/uL Sodium 136 L (137-145) mmol/L Potassium 6.0 H (3.5-5.1) mmol/L BUN 90 H (7-17) mg/dL Creatinine 1.42 H (0.52-1.04) mg/dL Alkaline Phosphatase 217 H (38-126) U/L C-Reactive Protein 5.3 H (<1.0) mg/dL Assessment and Plan Plan: #1. Shortness of breath, ilateral rib pain, cough related to recurrent aspiration. COVID-19 PCR, influenza A and B were negative. Chest x-ray showed worsening left perihilar and lower lobe infiltrate, and improving right perihilar infiltrate. 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 BAL culture was sent to the [facility] for identification. ID services on the case, current antibiotics include amikacin, tigecycline, and primaxin #2. Dehydration, related to nausea and vomiting, #3. Chronic pain syndrome, most recently on methadone for pain control #4. Chronic kidney disease stage III at baseline #5. Malnutrition and failure to thrive #6. Recurrent aspiration with multiple hospitalizations, patient is currently on TPN for nutritional support in addition to some oral feedings on soft diet #6. History of gastrectomy #7. Chronic pain syndrome #8. Previous history of CVA #9. History of hypothyroidism #10. History of spinal stenosis and chronic back pain #11. History of chronic anemia of chronic disease #12. Anxiety/depression #13. Hyperkalemia, related to IV infusion via TPN with electrolytes, the TPN for mail will be adjusted and serum potassium was treated protocol Plan: We will discontinue prednisone Continue antibiotics per ID service recommendations Continue TPN for nutritional support 1 amp of 50% dextrose, 10 units of insulin, and calcium gluconate Repeat BMP at 8:00 this evening overall prognosis is poor I have personally seen and examined the patient, performed the documentation and the assessment and plan as written. Number of minutes spent on the visit: [15] I have personally seen and examined the patient and reviewed the documentation. I performed a joint evaluation with the nurse practitioner in this evaluation was done more than 20 minutes. I fully agree with the documentation above and the plan of care. Continue antibiotic coverage. Continue TPN. Discontinue the steroids. We'll follow. Time with Patient: Less than 30
[2021-11-28] MEDS ORDERED: SODIUM POLYSTYRENE SULFONATE 30 GM/120 ML BOTTLE RECTAL STA (16:03)
[2021-11-28] MEDS ORDERED: SODIUM CHLORIDE 0.9% 1,000 ML IV STA (16:04)
[2021-11-28] MEDS: FERROUS SULFATE 325 MG TAB PO SCH (17:45)
[2021-11-28 18:12] LABS: Triglycerides 31.9 mg/dL (0.00-149.00)
[2021-11-28] MEDS ORDERED: DEXTROSE 50% SYRINGE 50 ML IVP ONE (19:16)
[2021-11-28 19:17] LABS: Glucose,Whole Blood 23 mg/dL (70-110)
[2021-11-28] MEDS: SODIUM CHLORIDE IV SCH ×6 (19:24)
[2021-11-28] MEDS: CALCIUM GLUCONATE IV SCH ×6 (19:24)
[2021-11-28] MEDS: SODIUM ACETATE IV SCH ×6 (19:24)
[2021-11-28] MEDS: [UNRECOGNIZED DRUG - OTHER] IV SCH ×6 (19:24)
[2021-11-28 19:39] LABS: Glucose,Whole Blood 122 mg/dL (70-110)
[2021-11-28 20:01] LABS: African American GFR (CKD) 42 (>60 ml/min/1.73 sqM); Anion Gap 15 mmol/L; Blood Urea Nitrogen 91 mg/dL (7-17); Calcium 9.8 mg/dL (8.4-10.2); Carbon Dioxide 21 mmol/L (22-30); Chloride 100 mmol/L (98-107); Glucose 121 mg/dL (74-99); Non-African American GFR(CKD) 36 (>60 ml/min/1.73 sqM); Sodium 136 mmol/L (137-145)
[2021-11-28 20:06] LABS: Potassium 4.6 mmol/L (3.5-5.1)
[2021-11-28 21:20] LABS: Glucose,Whole Blood 104 mg/dL (70-110)
[2021-11-28] MEDS: MIRTAZAPINE 45 MG TABLET PO SCH (21:22)
[2021-11-29 01:58] LABS: Glucose,Whole Blood 104 mg/dL (70-110)
[2021-11-29 01:58] LABS: Glucose,Whole Blood 94 mg/dL (70-110)
[2021-11-29] MEDS: SODIUM CHLORIDE 0.9% IVPB SCH ×2 (02:41→15:41)
[2021-11-29] MEDS: IMIPENEM CILASTATIN IVPB SCH ×2 (02:41→15:41)
[2021-11-29] MEDS: HYDROmorphone 0.5 MG/0.5 ML SYRINGE IVP PRN ×5 (02:43→20:21)
[2021-11-29] MEDS ORDERED: METOPROLOL SUCCINATE (ER) 25 MG TAB.ER.24H PO STA (02:51)
[2021-11-29] MEDS: BUTALB/APAP/CAFF 50-325-40MG TAB PO PRN ×3 (04:51→18:27)
[2021-11-29] MEDS: LEVOTHYROXINE 100 MCG TAB PO SCH (06:11)
[2021-11-29 06:28] LABS: African American GFR (CKD) 40 (>60 ml/min/1.73 sqM); Anion Gap 10 mmol/L; Blood Urea Nitrogen 86 mg/dL (7-17); Carbon Dioxide 27 mmol/L (22-30); Chloride 101 mmol/L (98-107); Glucose 96 mg/dL (74-99); Magnesium 1.8 mg/dL (1.6-2.3); Non-African American GFR(CKD) 35 (>60 ml/min/1.73 sqM); Phosphorus 4.1 mg/dL (2.5-4.5); Potassium 4.7 mmol/L (3.5-5.1); Sodium 138 mmol/L (137-145)
[2021-11-29] MEDS: CHOLESTYRAMINE (WITH SUGAR) 4 GM PACKET PO SCH ×2 (07:00→17:19)
--- NOTE | 2021-11-29 08:22 | P.PN ---
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 On today's evaluation that is 11/28/2021, the patient is afebrile, the patient is breathing comfortably on room air, patient denies chest pain , the patient denies any worsening cough or sputum production, the patient has been complaining of feeling nauseated but no vomiting and also complaining of abdominal pain , denies any diarrhea Objective - Vital Signs Vital signs: Vital Signs Temp 98.6 F 11/28/21 06:55 Pulse 100 11/28/21 11:49 Resp 15 11/28/21 06:55 BP 167/88 11/28/21 06:55 Pulse Ox 98 11/28/21 06:55 FiO2 Intake & Output 11/27/21 11/28/21 11/28/21 18:59 06:59 18:59 Intake Total 240 Balance 240 Weight 38.102 kg Intake: Oral 240 Other: Voiding Method Toilet Bedside Commode # Voids 3 4 # Bowel Movements 0 1 - Exam GENERAL DESCRIPTION: An elderly female lying in bed in no distress RESPIRATORY SYSTEM: Unlabored breathing , decreased breath sounds at bases HEART: S1 S2 regular rate and rhythm , ABDOMEN: Soft , no tenderness EXTREMITIES: No edema feet - Labs CBC & Chem 7: 11/28/21 06:51 11/29/21 05:47 Labs: Abnormal Lab Results - Last 24 Hours (Table) 11/28/21 11/28/21 Range/Units 06:51 06:51 WBC 19.70 H (4.50-10.00) X 10*3/uL RBC 4.09 L (4.10-5.20) X 10*6/uL Hgb 11.1 L (12.0-15.0) g/dL Hct 35.6 L (37.2-46.3) % MCHC 31.2 L (32.0-37.0) g/dL RDW 15.7 H (11.5-14.5) % Plt Count 454 H (140-440) X 10*3/uL Immature Gran # 0.09 H (0.00-0.04) X 10*3/uL Neutrophils # 15.77 H (1.80-7.70) X 10*3/uL Monocytes # 1.46 H (0.20-1.00) X 10*3/uL Sodium 136 L (137-145) mmol/L Potassium 6.0 H (3.5-5.1) mmol/L BUN 90 H (7-17) mg/dL Creatinine 1.42 H (0.52-1.04) mg/dL Alkaline Phosphatase 217 H (38-126) U/L C-Reactive Protein 5.3 H (<1.0) mg/dL Assessment and Plan (1) Pneumonia Current Visit: Yes Status: Acute Code(s): J18.9 - PNEUMONIA, UNSPECIFIED ORGANISM SNOMED Code(s): 345013693 Plan: 1-patient presented to hospital with shortness of breath and cough in this patient did have evidence of cavitating pneumonia on the chest x-ray with recent bronchoscopy culture positive for Mycobacterium abscessus likely the etiology, sensitivities are currently pending 2-patient did have a chest CT on 11/19/2021 with evidence of increase in size and number of cavitating lesion concerning for necrotizing pneumonia 3patient is currently being treated amikacin pharmacy to dose along with with imipenem and tigecycline, kidney function is monitored closely 4-the patient has developed ileus and is scheduled for surgery tomorrow Time with Patient: Less than 30
[2021-11-29] MEDS: IPRATROPIUM-ALBUTEROL 3 ML NEB INHALATION SCH ×4 (08:40→19:52)
[2021-11-29] MEDS: SYMBICORT 160-4.5 MCG INHALER INHALATION SCH ×2 (08:40→19:52)
--- NOTE | 2021-11-29 08:40 | CT ---
EXAMINATION TYPE: CT pelvis wo con DATE OF EXAM: 11/29/2021 COMPARISON: 11/27/2021 HISTORY: Follow-up bowel obstruction CT DLP: 207.7 mGycm Automated exposure control for dose reduction was used. Contrast: None Technique: Axial images 5 mm thick sections. Reconstructed images in the coronal plane FINDINGS: Spinal fixation is present at L4-5. Left hip prosthesis is present. Old pubic rami fractures are evid ent. No acute pelvic fractures are evident. Sacroiliac joints appear normal. Limited CT sections are obtained through the lower abdomen. There is a 0.5 cm hyperintensity within the left renal cortex series 201 image 8. Right kidney appears somewhat atrophic. Gallbladder minimal ly distended. Some contrast within the ascending colon region and distal small bowel. Nonspecific bowel gas is with in small bowel loops in the lower pelvis. Dilated loops of bowel are not identified . Bladder is poorly visualized. The uterus is poorly visualized. Appendix is not identified. Impressions: 1. NO SUSPICIOUS CHANGES FOR OBSTRUCTION
[2021-11-29] MEDS: METHADONE 10 MG TAB PO SCH ×2 (08:54→21:51)
[2021-11-29] MEDS: ASPIRIN 81 MG PO SCH (08:54)
[2021-11-29] MEDS: hydrOXYzine pamoate 25 MG CAP PO SCH ×3 (08:54→21:51)
[2021-11-29] MEDS: LORATADINE 10 MG TAB PO SCH (08:55)
[2021-11-29] MEDS: PANTOPRAZOLE 40 MG TABLET PO SCH (08:55)
[2021-11-29] MEDS: busPIRone HCl 10 MG TAB PO SCH ×2 (08:55→20:21)
[2021-11-29] MEDS: buPROPion XL 300 MG TAB.ER.24H PO SCH (08:55)
[2021-11-29] MEDS: guaiFENesin 600 MG TABLET.ER PO SCH ×2 (08:55→20:21)
[2021-11-29] MEDS: SODIUM BICARBONATE TAB 650 MG TAB PO SCH (08:55)
[2021-11-29] MEDS: HEPARIN SODIUM,PORCINE/PF 5,000 UNIT/0.5 ML SYRINGE SQ SCH ×3 (08:56→20:24)
[2021-11-29] MEDS: PARoxetine 10 MG TAB PO SCH (08:57)
[2021-11-29] MEDS ORDERED: MAGNESIUM CITRATE 296 ML BOTTLE PO ONE (09:24)
[2021-11-29] MEDS: TIGECYCLINE 50 MG in SODIUM CHLORIDE 0.9% 100 ML IVPB SCH ×2 (09:52→21:51)
[2021-11-29 10:04] LABS: Glucose,Whole Blood 105 mg/dL (70-110)
--- NOTE | 2021-11-29 10:55 | P.PN ---
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 Gregorio infectious disease. She was started on IV antibiotic in the emergency room, will continue with same at this time will resume TPN, consultation for pulmonary and infectious disease were initiated On 11/19/2021 patient was seen and examined on the medical floor she is alert an d oriented 3 in no apparent distress she is complaining of abdominal cramping and diarrhea she is still complaining of cough and shortness of breath otherwise she denies any complaints there is no fever or chills no headache or dizziness no chest pain no nausea or vomiting, no blood in the stools no burning with urination no frequency or urgency and no hematuria. At this time will send a stool sample for C. diff will continue was current management otherwise. On 11/20/2021 patient was seen and examined on the medical floor she is alert and oriented in no distress, she is still complaining of cough and shortness of breath otherwise she denies any complaints there is no fever or chills no h eadache or dizziness no chest pain no nausea or vomiting no abdominal pain no blood in the stools no burning with urination no frequency or urgency no hematuria, patient still complaining of some diarrhea .Will check stools for C. diff On 11/21/2021 patient was seen and examined on the medical floor she is alert and oriented in no distress, she is still complaining of cough and shortness of breath otherwise she denies any complaints there is no fever or chills no headache or dizziness no chest pain no nausea or vomiting no abdominal pain no blood in the stools no burning with urination no frequency or urgency no hematuria, patient still complaining of some diarrhea. On 11/22/2021 patient was seen and examined on the medical floor she is alert and oriented 3 in no apparent distress she is complaining of abdominal pain and cramping otherwise she denies any complaints at this time there is no fever or chills no headache or dizziness no chest pain no shortness of breath no cough no nausea or vomiting no blood in the stools no burning with urination frequency or urgency and no hematuria On 11/23/2021 patient was seen and examined on the medical floor she is alert and oriented 3 in no distress she is still complaining of abdominal discomfort but states has improved since yesterday otherwise she denies any complaints there is no fever or chills no headache or dizziness no chest pain no shortness of breath no cough no nausea or vomiting no diarrhea no blood in the stools no burning with urination no frequency or urgency and no hematuria. Abdomen x-ray and abdomen ultrasound reviewed no acute abnormality of the abdomen. On 11/24/2021 patient was seen and examined on the medical floor she is alert and oriented 3 in no apparent distress there is no fever or chills no headache or dizziness no chest pain no shortness of breath no cough no nausea or vomiting no abdominal pain no diarrhea no blood in the stools no burning with urination no frequency or urgency and no hematuria. Abdominal discomfort has improved medication and labs were reviewed continue with current regimen will follow in a.m. On 11/25/2021 patient was seen and examined on the medical floor she is alert and oriented 3 in no distress she is complaining of shortness of breath with activity her abdominal discomfort has improved there is no fever or chills no headache or dizziness no chest pain no nausea or vomiting no abdominal pain no diarrhea no blood in the stools no burning with urination no frequency or urgency and no hematuria On 11/26/2021 patient is alert and oriented in no distress she is complaining of shortness of breath with activity she is complaining of episodes of vomiting oth erwise she denies any complaints there is no fever or chills no headache or dizziness no chest pain no shortness of breath no cough, no abdominal pain no diarrhea no blood in the stools no burning with urination no frequency or urgency and no hematuria. On 11/27/2021 patient was seen and examined on the medical floor she is alert and oriented 3 in no apparent distress she is still complaining of abdominal discomfort and vomiting otherwise she denies any complaints there is no fever or chills no headache or dizziness no chest pain no shortness of breath no cough no urinary symptoms. At this time will check computed tomography scan of the abdomen and pelvis with oral contrast, Will consult Dr. auguste for evaluation of abdominal pain and vomiting On 11/27/2021 patient was seen and examined on the medical floor she is alert and oriented 3 in no apparent distress she is still complaining of abdominal discomfort and vomiting otherwise she denies any complaints there is no fever or chills no headache or dizziness no chest pain no shortness of breath no cough no urinary symptoms. patient has evidence of small bowel obstruction, Dr Guadalupe following Objective - Vital Signs Vital signs: Vital Signs Temp 98.6 F 11/28/21 06:55 Pulse 100 11/28/21 07:26 Resp 15 11/28/21 06:55 BP 167/88 11/28/21 06:55 Pulse Ox 98 11/28/21 06:55 FiO2 Intake & Output 11/27/21 11/28/21 11/28/21 18:59 06:59 18:59 Intake Total 240 Balance 240 Weight 38.102 kg Intake: Oral 240 Other: Voiding Method Toilet Bedside Commode # Voids 3 4 # Bowel Movements 0 1 - Exam In general patient is alert and oriented x 3 in no distress HEENT head normocephalic and atraumatic Neck is supple no JVD no goiter no lymphadenopathy no carotid bruit Chest examination reveals a scattered crackles in both lung calixto no wheezing Cardiac exam reveals regular heart sounds S1 and S2 no gallops no murmurs Abdomen is soft nontender no organomegaly with normal bowel sounds Extremity exam reveals no edema no cyanosis or clubbing Neurological examination reveals no gross focal deficits - Labs CBC & Chem 7: 11/28/21 06:51 11/29/21 05:47 Labs: Abnormal Lab Results - Last 24 Hours (Table) 11/28/21 Range/Units 06:51 Sodium 136 L (137-145) mmol/L Potassium 6.0 H (3.5-5.1) mmol/L BUN 90 H (7-17) mg/dL Creatinine 1.42 H (0.52-1.04) mg/dL Alkaline Phosphatase 217 H (38-126) U/L C-Reactive Protein 5.3 H (<1.0) mg/dL Assessment and Plan Plan: Recurrent pneumonia was cough and shortness of breath Evidence of dehydration related to nausea vomiting Malnutrition related to previous gastrectomy maintained on TPN Recurrent aspiration pneumonia Previous history of stroke Underlying history of hypothyroidism Underlying history of spinal stenosis with chronic back pain Underlying history of depression with anxiety At this time patient is admitted to medical floor She was started on IV antibiotic Zosyn and Zithromax in the emergency room will continue with same at this time Consultation for pulmonary and infectious disease initiated For DVT prophylaxis patient on subcu heparin
--- NOTE | 2021-11-29 14:21 | P.PN ---
Subjective Progress Note Date: 11/29/21 Principal diagnosis: Small bowel obstruction Patient doing better today. Repeat CT of pelvis reviewed with radiology this morning. Contrast has made it into the colon and the bowel loops as visualized appear free of distention or fecal stasis. Patient denies nausea or vomiting. She states she is having diarrhea all of the nursing staff states that they have not seen her move her bowels. No significant pain today in the abdomen. Patient remains mildly tachycardic. White blood cell count remained elevated yesterday. No repeat CBC today. Objective - Vital Signs Vital signs: Vital Signs Temp 98.2 F 11/29/21 07:45 Pulse 80 11/29/21 11:58 Resp 18 11/29/21 11:58 BP 179/94 11/29/21 07:45 Pulse Ox 99 11/29/21 07:45 FiO2 Intake & Output 11/28/21 11/29/21 11/29/21 18:59 06:59 18:59 Intake Total 980 Balance 980 Weight 38.102 kg Intake: Intake, IV Titration 980 Amount Sodium Chloride 4Meq/ml 980 Vial 28 meq Sodium Acetate 40 meq Calcium Gluconate 1 gm Mvi, Adult No.4 with Vit K 10 ml Trace (Conc-1Ml/Dose) 1 ml In Amino Acids 5 %/ Dextrose 20 % 1,000 ml @ 50 mls/hr IV .[id number] [facility] Rx#:[id number] Other: Voiding Method Bedside Commode # Voids 3 - Exam Abdomen: Soft, mild distention, minimal diffuse tenderness, no rebound or guarding - Labs CBC & Chem 7: 11/28/21 06:51 11/29/21 05:47 Labs: Abnormal Lab Results - Last 24 Hours (Table) 11/28/21 11/28/21 11/28/21 Range/Units 06:51 19:15 19:31 Sodium 136 L (137-145) mmol/L Carbon Dioxide 21 L (22-30) mmol/L BUN 91 H (7-17) mg/dL Creatinine 1.43 H (0.52-1.04) mg/dL Glucose 121 H (74-99) mg/dL POC Glucose (mg/dL) 23 L (70-110) mg/dL Procalcitonin 0.31 H (0.02-0.09) ng/mL 11/28/21 11/29/21 Range/Units 19:37 05:47 Sodium (137-145) mmol/L Carbon Dioxide (22-30) mmol/L BUN 86 H (7-17) mg/dL Creatinine 1.47 H (0.52-1.04) mg/dL Glucose (74-99) mg/dL POC Glucose (mg/dL) 122 H (70-110) mg/dL Procalcitonin (0.02-0.09) ng/mL Assessment and Plan (1) Small bowel obstruction Narrative/Plan: 76-year-old female with small bowel obstruction or possible ileus. CAT scan shows improvement/resolution. Will order half bottle of magnesium citrate at this time. May resume liquid diet for now. If tolerates May advance. Repeat labs tomorrow. I had a long discussion with the patient's sister Kamilah who works in the medical field. She is now her guardian. I stressed to her that I would like the patient seen at [facility] surgery clinic for assessment of percutaneous jejunostomy tube placement versus open jejunostomy tube placement. Current Visit: Yes Status: Acute Code(s): K56.609 - UNSP INTESTNL OBST, UNSP TO PARTIAL VERSUS COMPLETE OBST SNOMED Code(s): 538941993
--- NOTE | 2021-11-29 14:27 | P.PN ---
Subjective Progress Note Date: 11/29/21 On 11/22/2021 patient seen in follow-up on medical surgical floor. She is resting comfortably in bed, no signs of any respiratory distress. Breathing comfortably. Room air pulse ox is 90%, she is afebrile, patient is on combination of antibiotics with amikacin, tigecycline, and Primaxin for Mycobacterium abscesses. Remains on nebulized bronchodilators. She is 89 able to bring up any phlegm. Blood cultures have shown no growth. Serum pro calcitonin level is low at 0.15, CRP is 3.0. Today's labs have been noted, potassium is 5.6, sodium is 136, B1 is 41, creatinine is 1.18. Patient remains on TPN for nutritional support in addition to a soft diet vital signs have been stable, she's had no fever while inpatient, blood pressure is been stable, no altered mentation. On 11/23/2021 patient seen in follow-up on medical surgical floor. She is resting in bed, still complains of chest discomfort with deep breathing and coughing along the lower bilateral ribs. Does not appear to be in any acute distress, on room air. Her cough was dry, noncongested. She has not been able to provide a sputum sample, she remains on a combination of antibiotics including tigecycline, Primaxin, and amikacin for mycobacterial pulmonary infection. ID service is following. Vitals have been stable, today's labs have been reviewed, her potassium level has been on the rise, 5.6 on yesterday's labs, and at 6.0 on today's labs, sodium is 133, BUN is 56, creatinine is 1.2. Pro calcitonin level was 0.15. Patient remains on TPN with some oral feedings. We spoke to the pharmacist on duty today, and asked them to review the electrolytes and remove the potassium from the TPN solution. Hyperkalemia will be treated per protocol and BMP will be rechecked. On 11/26/2021 patient seen in follow-up on medical surgical floor. She states she had multiple episodes of vomiting last night. No nausea. She still complains of pain in her rib cage, which is worse since the multiple vomiting episodes. Patient continues on triple antibiotic coverage regarding her Mycobacterium pulmonary infection, with a combination of amikacin, tigecycline, and imipenem. She denies any worsening shortness of breath, other than with exertion, room air pulse ox is 96%, she's been afebrile. Hypertensive today, with a blood pressure 186/100, we'll defer to primary care physician for management of blood pressure. Yesterday's chest x-ray showed stable bilateral areas of consolidation. Today's lab 7 noted, CBC still pending, BMP showed potassium of 5.9, sodium of 138, BUN of 73 and creatinine is 1.35. Serum pro calcitonin level is 0.36, which is worse compared her admission serum pro calcitonin level of 0.15. On 11/27/2021 patient seen in follow-up on medical surgical floor. She denies worsening dyspnea however she has been nauseous, and vomiting, she has been able to eat. She remains on TPN for nutritional support. Her oral mucous membranes are looking dry. She has been taken sips of water. Patient remains on antibiotics with tigecycline, amikacin, and imipenem/cilasttin. Patient has been afebrile, her blood pressure has been running elevated, she remains on room air with pulse ox of 97%. On 11/28/2021 patient is seen in follow-up on medical surgical floor. She states she still not able to keep much down, she has been nauseous and having frequent episodes of vomiting. From pulmonary perspective she still complaining of some pain under the rib cage with deep breathing and coughing, she remains on room air, she does not appear to be in any respiratory distress, she's been afebrile, remains on antibiotics with tigecycline, amikacin, and imipenem/cilasttin. remains on TPN for antibiotic coverage.today's labs reviewed The patient is seen today on 09/29/2021 in follow-up on the regular medical floor. She did have an episode of hypoglycemia following insulin given for hyperkalemia last evening. She is sitting up in bed. Awake and alert in no acute distress. Maintaining good O2 saturations in the 90s on room air. Follow- up computed tomography scan of the pelvis revealed no suspicious changes for obstruction. No plans for surgical intervention. blood cultures revealed no growth. Sodium 138. Potassium 4.7. Bicarb 27. BUN 86. Creatinine 1.47. Glucose 105. She continues to be nourished with TPN and lipids. She is taking oral intake as well. She remains on DuoNeb inhalations, Symbicort, heparin for DVT prophylaxis. She remains on antibiotics in the form of imipenem and amikacin. Objective - Vital Signs Vital signs: Vital Signs Temp 98.2 F 11/29/21 07:45 Pulse 80 11/29/21 11:58 Resp 18 11/29/21 11:58 BP 179/94 11/29/21 07:45 Pulse Ox 99 11/29/21 07:45 FiO2 Intake & Output 11/28/21 11/29/21 11/29/21 18:59 06:59 18:59 Intake Total 980 Balance 980 Weight 38.102 kg Intake: Intake, IV Titration 980 Amount Sodium Chloride 4Meq/ml 980 Vial 28 meq Sodium Acetate 40 meq Calcium Gluconate 1 gm Mvi, Adult No.4 with Vit K 10 ml Trace (Conc-1Ml/Dose) 1 ml In Amino Acids 5 %/ Dextrose 20 % 1,000 ml @ 50 mls/hr IV .[id number] [facility] Rx#:[id number] Other: Voiding Method Bedside Commode # Voids 3 - Exam GENERAL EXAM: Alert, very pleasant, 76-year-old female, frail, cachectic, on room air, appears to be in no acute distress, on room air comfortable in no apparent distress. HEAD: Normocephalic/atraumatic. EYES: Normal reaction of pupils, equal size. Conjunctiva pink, sclera white. NOSE: Clear with pink turbinates. THROAT: No erythema or exudates. NECK: No masses, no JVD, no thyroid enlargement, no adenopathy. CHEST: No chest wall deformity. Symmetrical expansion. LUNGS: Equal air entry with no crackles, wheeze, rhonchi or dullness. CVS: Regular rate and rhythm, normal S1 and S2, no gallops, no murmurs, no rubs ABDOMEN: Soft, nontender. No hepatosplenomegaly, normal bowel sounds, no guarding or rigidity. EXTREMITIES: No clubbing, no edema, no cyanosis, 2+ pulses and upper and lower extremities. MUSCULOSKELETAL: Muscle strength and tone normal. SPINE: No scoliosis or deformity SKIN: No rashes CENTRAL NERVOUS SYSTEM: No focal deficits, tone is normal in all 4 extremities. PSYCHIATRIC: Alert and oriented -3. Appropriate affect. Intact judgment and insight. - Labs CBC & Chem 7: 11/28/21 06:51 11/29/21 05:47 Labs: Abnormal Lab Results - Last 24 Hours (Table) 11/28/21 11/28/21 11/28/21 Range/Units 06:51 19:15 19:31 Sodium 136 L (137-145) mmol/L Carbon Dioxide 21 L (22-30) mmol/L BUN 91 H (7-17) mg/dL Creatinine 1.43 H (0.52-1.04) mg/dL Glucose 121 H (74-99) mg/dL POC Glucose (mg/dL) 23 L (70-110) mg/dL Procalcitonin 0.31 H (0.02-0.09) ng/mL 11/28/21 11/29/21 Range/Units 19:37 05:47 Sodium (137-145) mmol/L Carbon Dioxide (22-30) mmol/L BUN 86 H (7-17) mg/dL Creatinine 1.47 H (0.52-1.04) mg/dL Glucose (74-99) mg/dL POC Glucose (mg/dL) 122 H (70-110) mg/dL Procalcitonin (0.02-0.09) ng/mL Assessment and Plan Assessment: Shortness of breath, bilateral rib pain, cough related to recurrent aspiration. COVID-19 PCR, influenza A and B were negative. Chest x-ray showed worsening left perihilar and lower lobe infiltrate, and improving right perihilar infilt rate. 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 BAL culture was sent to the [place] [facility] for identification. ID services on the case, current antibiotics include amikacin and imipenem/cilastatin Dehydration, related to nausea and vomiting, Chronic pain syndrome, most recently on methadone for pain control Chronic kidney disease stage III at baseline Malnutrition and failure to thrive Recurrent aspiration with multiple hospitalizations, patient is currently on TPN for nutritional support in addition to some oral feedings on soft diet History of gastrectomy Chronic pain syndrome Previous history of CVA History of hypothyroidism History of spinal stenosis and chronic back pain History of chronic anemia of chronic disease Anxiety/depression Hyperkalemia, related to IV infusion via TPN with electrolytes, the TPN for mail will be adjusted and serum potassium was treated protocol Plan: The patient was seen and evaluated Currently stable from the pulmonary standpoint On room air, Symbicort, DuoNeb inhalations ID is on the case I have personally seen and examined the patient, performed the documentation and the assessment and plan as written. Number of minutes spent on the visit: 10. I have personally seen and examined the patient and reviewed the documentation. I performed a joint evaluation with the nurse practitioner in this evaluation was done more than 20 minutes. I fully agree with the documentation above and the plan of care. The follow-up CAT scan of the abdomen was done today showed no evidence of obstruction. There may be some stool impaction. The patient was given laxatives. Brester status is stable. Continue same antibiotic coverage for now. We'll continue to follow.
[2021-11-29] MEDS: SODIUM CHLORIDE 0.9% 1,000 ML IV SCH (15:42)
--- NOTE | 2021-11-29 15:54 | P.PN ---
Subjective Progress Note Date: 11/29/21 On 11/18/2021 patient was seen and examined on the medical floor she is alert and oriented 3 in no apparent distress, she is complaining of cough and shortness of breath otherwise she denies any complaints, patient has a prolonged past medical history with recurrent admissions to [facility] was pneumonia she had a bronchoscopy was Dr. 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 Gregorio infectious disease. She was started on IV antibiotic in the emergency room, will continue with same at this time will resume TPN, consultation for pulmonary and infectious disease were initiated On 11/19/2021 patient was seen and examined on the medical floor she is alert an d oriented 3 in no apparent distress she is complaining of abdominal cramping and diarrhea she is still complaining of cough and shortness of breath otherwise she denies any complaints there is no fever or chills no headache or dizziness no chest pain no nausea or vomiting, no blood in the stools no burning with urination no frequency or urgency and no hematuria. At this time will send a stool sample for C. diff will continue was current management otherwise. On 11/20/2021 patient was seen and examined on the medical floor she is alert and oriented in no distress, she is still complaining of cough and shortness of breath otherwise she denies any complaints there is no fever or chills no h eadache or dizziness no chest pain no nausea or vomiting no abdominal pain no blood in the stools no burning with urination no frequency or urgency no hematuria, patient still complaining of some diarrhea .Will check stools for C. diff On 11/21/2021 patient was seen and examined on the medical floor she is alert and oriented in no distress, she is still complaining of cough and shortness of breath otherwise she denies any complaints there is no fever or chills no headache or dizziness no chest pain no nausea or vomiting no abdominal pain no blood in the stools no burning with urination no frequency or urgency no hematuria, patient still complaining of some diarrhea. On 11/22/2021 patient was seen and examined on the medical floor she is alert and oriented 3 in no apparent distress she is complaining of abdominal pain and cramping otherwise she denies any complaints at this time there is no fever or chills no headache or dizziness no chest pain no shortness of breath no cough no nausea or vomiting no blood in the stools no burning with urination frequency or urgency and no hematuria On 11/23/2021 patient was seen and examined on the medical floor she is alert and oriented 3 in no distress she is still complaining of abdominal discomfort but states has improved since yesterday otherwise she denies any complaints there is no fever or chills no headache or dizziness no chest pain no shortness of breath no cough no nausea or vomiting no diarrhea no blood in the stools no burning with urination no frequency or urgency and no hematuria. Abdomen x-ray and abdomen ultrasound reviewed no acute abnormality of the abdomen. On 11/24/2021 patient was seen and examined on the medical floor she is alert and oriented 3 in no apparent distress there is no fever or chills no headache or dizziness no chest pain no shortness of breath no cough no nausea or vomiting no abdominal pain no diarrhea no blood in the stools no burning with urination no frequency or urgency and no hematuria. Abdominal discomfort has improved medication and labs were reviewed continue with current regimen will follow in a.m. On 11/25/2021 patient was seen and examined on the medical floor she is alert and oriented 3 in no distress she is complaining of shortness of breath with activity her abdominal discomfort has improved there is no fever or chills no headache or dizziness no chest pain no nausea or vomiting no abdominal pain no diarrhea no blood in the stools no burning with urination no frequency or urgency and no hematuria On 11/26/2021 patient is alert and oriented in no distress she is complaining of shortness of breath with activity she is complaining of episodes of vomiting oth erwise she denies any complaints there is no fever or chills no headache or dizziness no chest pain no shortness of breath no cough, no abdominal pain no diarrhea no blood in the stools no burning with urination no frequency or urgency and no hematuria. On 11/27/2021 patient was seen and examined on the medical floor she is alert and oriented 3 in no apparent distress she is still complaining of abdominal discomfort and vomiting otherwise she denies any complaints there is no fever or chills no headache or dizziness no chest pain no shortness of breath no cough no urinary symptoms. At this time will check computed tomography scan of the abdomen and pelvis with oral contrast, Will consult Dr. auguste for evaluation of abdominal pain and vomiting On 11/28/2021 patient was seen and examined on the medical floor she is alert and oriented 3 in no apparent distress she is still complaining of abdominal discomfort and vomiting otherwise she denies any complaints there is no fever or chills no headache or dizziness no chest pain no shortness of breath no cough no urinary symptoms. patient has evidence of small bowel obstruction, Dr Guadalupe following On 11/29/2021 patient was seen and examined on the medical floor she is alert and oriented 3 in no apparent distress there is no fever or chills no headache or dizziness no chest pain no shortness of breath she has occasional cough there is no nausea or vomiting she has mild abdominal discomfort no diarrhea no blood in the stools no burning with urination no frequency or urgency and no hematuria. Repeat computed tomography scan of the abdomen and pelvis, reveals improvement no surgical intervention is recommended at this time, continue with current medication will follow in a.m.. Objective - Vital Signs Vital signs: Vital Signs Temp 98.2 F 11/29/21 07:45 Pulse 83 11/29/21 07:45 Resp 14 11/29/21 07:45 BP 179/94 11/29/21 07:45 Pulse Ox 99 11/29/21 07:45 FiO2 Intake & Output 11/28/21 11/29/21 11/29/21 18:59 06:59 18:59 Intake Total 980 Balance 980 Intake: Intake, IV Titration 980 Amount Sodium Chloride 4Meq/ml 980 Vial 28 meq Sodium Acetate 40 meq Calcium Gluconate 1 gm Mvi, Adult No.4 with Vit K 10 ml Trace (Conc-1Ml/Dose) 1 ml In Amino Acids 5 %/ Dextrose 20 % 1,000 ml @ 50 mls/hr IV .[id number] [facility] Rx#:[id number] Other: Voiding Method Bedside Commode # Voids 3 - Exam In general patient is alert and oriented x 3 in no distress HEENT head normocephalic and atraumatic Neck is supple no JVD no goiter no lymphadenopathy no carotid bruit Chest examination reveals a scattered crackles in both lung calixto no wheezing Cardiac exam reveals regular heart sounds S1 and S2 no gallops no murmurs Abdomen is soft nontender no organomegaly with normal bowel sounds Extremity exam reveals no edema no cyanosis or clubbing Neurological examination reveals no gross focal deficits - Labs CBC & Chem 7: 11/28/21 06:51 11/29/21 05:47 Labs: Abnormal Lab Results - Last 24 Hours (Table) 11/28/21 11/28/21 11/28/21 Range/Units 06:51 19:15 19:31 Sodium 136 L (137-145) mmol/L Carbon Dioxide 21 L (22-30) mmol/L BUN 91 H (7-17) mg/dL Creatinine 1.43 H (0.52-1.04) mg/dL Glucose 121 H (74-99) mg/dL POC Glucose (mg/dL) 23 L (70-110) mg/dL Procalcitonin 0.31 H (0.02-0.09) ng/mL 11/28/21 11/29/21 Range/Units 19:37 05:47 Sodium (137-145) mmol/L Carbon Dioxide (22-30) mmol/L BUN 86 H (7-17) mg/dL Creatinine 1.47 H (0.52-1.04) mg/dL Glucose (74-99) mg/dL POC Glucose (mg/dL) 122 H (70-110) mg/dL Procalcitonin (0.02-0.09) ng/mL Assessment and Plan Plan: Recurrent pneumonia was cough and shortness of breath Evidence of dehydration related to nausea vomiting Malnutrition related to previous gastrectomy maintained on TPN Recurrent aspiration pneumonia Previous history of stroke Underlying history of hypothyroidism Underlying history of spinal stenosis with chronic back pain Underlying history of depression with anxiety At this time patient is admitted to medical floor She was started on IV antibiotic Zosyn and Zithromax in the emergency room will continue with same at this time Consultation for pulmonary and infectious disease initiated For DVT prophylaxis patient on subcu heparin
--- NOTE | 2021-11-29 16:52 | P.NPCON ---
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 Nephrology was consulted for a creatinine of 1.4 MG per DL. She is on amikacin and tigecycline for mycobacterial infection. She has multiple episodes of acute kidney injuries in the past. She is on TPN. Denies any nausea vomiting diarrhea. No chest pain shortness of breath. No recent contrast studies. Review of Systems Constitutional: Reports as per HPI Past Medical History Past Medical History: Asthma, COPD, CVA/TIA, GERD/Reflux, Memory Impairment, Osteoarthritis (OA), Pneumonia, Renal Disease, Respiratory Disorder, Thyroid Disorder Additional Past Medical History / Comment(s): Aspiration, pneumonias, covid pneumonia, protein calorie malnutrition, pt was on TPN with PICC line managed thru [facility], chronic anemia, gastric ulcers/PUD, pancreatitis, bowel obstruction/surgery, constipation, CKD stage IV, TIA, chronic migraines, chronic back/cervical pain/spinal stenosis, hypothyroid, hyponatremia. DAILY TPN History of Any Multi-Drug Resistant Organisms: None Reported, Other MDRO Date of last positivie culture/infection: 2021 MDRO Source:: urine Past Surgical History: Back Surgery, Bowel Resection, Hysterectomy, Joint Replacement Additional Past Surgical History / Comment(s): LOWER BACK SURGERY lamenectomy/discetomy then had a revison of that sx. 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, nasal sx d/t broken nose, colonoscopy/egd, PAIN CLINIC PROCEDURES, PORT A CATH INSERTION, LT ADEOLA Past Anesthesia/Blood Transfusion Reactions: No Reported Reaction Additional Past Anesthesia/Blood Transfusion Reaction / Comment(s): PT RECEIVED BLOOD TRANSFUSIONS AFTER STOMACH SURGERY Past Psychological History: Anxiety, Depression, Panic Disorder Smoking Status: Never smoker Past Alcohol Use History: None Reported Past Drug Use History: None Reported - Past Family History Father Family Medical History: Cancer, Coronary Artery Disease (CAD) Additional Family Medical History / Comment(s): FATHER HAD BLADDER AND KIDNEY CANCER. FATHER HAD TB WHEN HE WAS A CHILD .FATHER AT AGE 87. Mother Family Medical History: Cancer Additional Family Medical History / Comment(s): MOTHER AT AGE 58 OF OVARIAN CANCER. Medications and Allergies Home Medications Medication Instructions Recorded Confirmed Type Ferrous Sulfate [Iron (65 MG 325 mg PO DAILY@1200 11/06/15 11/17/21 History Elemental)] calcitrioL [Calcitriol] 1 mcg PO MOWEFR 06/07/19 11/17/21 History busPIRone HCL [Buspar] 30 mg PO BID 04/14/20 11/17/21 History Butalb/APAP/Caff 50-325-40Mg 1 tab PO Q6H PRN 06/30/20 11/17/21 History [Fioricet 50-325-40] Albuterol Sulfate [Albuterol 2 puff INHALATION RT-Q6H PRN 04/07/21 11/17/21 History Sulfate Hfa] Budesonide/Formoterol Fumarate 2 puff INHALATION RT-BID 04/07/21 11/17/21 History [Symbicort 160-4.5 Mcg Inhaler] Aspirin EC [Ecotrin Low Dose] 81 mg PO DAILY 05/12/21 11/17/21 History Levothyroxine Sodium [Synthroid] 100 mcg PO DAILY@0630 30 Days #30 06/19/21 11/17/21 Rx tab Furosemide [Lasix] 20 mg PO DAILY PRN 08/08/21 11/17/21 History Omeprazole 20 mg PO DAILY 08/08/21 11/17/21 History hydrOXYzine pamoate [Vistaril] 50 mg PO TID 08/08/21 11/17/21 History polyethylene glycoL 3350 [Miralax] 17 gm PO DAILY PRN 08/08/21 11/17/21 History Sodium Bicarbonate Tab 650 mg PO DAILY 30 Days #30 tab 08/21/21 11/17/21 Rx Mirtazapine [Remeron] 45 mg PO HS 09/01/21 11/17/21 History Ondansetron [Zofran] 4 mg PO Q6H PRN 09/01/21 11/17/21 History Methadone [Dolophine] 20 mg PO BID tab 09/10/21 11/17/21 Rx Potassium Chloride ER [K-Dur 10] 30 meq PO DAILY PRN 10/08/21 11/17/21 History buPROPion XL [Wellbutrin XL] 300 mg PO DAILY 10/08/21 11/17/21 History Loratadine [Claritin] 10 mg PO DAILY 10/28/21 11/17/21 History Acetaminophen Tab [Tylenol] 650 mg PO Q6HR PRN tab 10/29/21 11/17/21 Rx Ondansetron Odt [Zofran Odt] 4 mg PO Q8HR PRN #15 tab 11/06/21 11/17/21 Rx PARoxetine [Paxil] 10 mg PO DAILY 11/17/21 11/17/21 History Allergies Allergy/AdvReac Type Severity Reaction Status Date / Time mold Allergy Itching Verified 11/17/21 15:42 denosumab [From Prolia] AdvReac SEVERE Verified 11/17/21 15:42 CALCIUM LOSS morphine AdvReac Confusion Verified 11/17/21 15:42 DUST Allergy Itching Uncoded 11/17/21 15:42 Physical Exam Vitals: Vital Signs Temp Pulse Pulse Resp BP Pulse Ox 11/29/21 16:13 78 16 11/29/21 16:03 77 16 11/29/21 13:42 98.1 F 73 15 163/64 99 11/29/21 11:58 80 18 11/29/21 11:46 79 18 11/29/21 07:45 98.2 F 83 14 179/94 99 11/29/21 02:46 104 H 173/88 11/29/21 02:35 98.0 F 109 H 19 173/88 98 11/29/21 02:13 119 H 182/93 96 11/29/21 02:00 97.9 F 18 182/108 11/28/21 21:03 102 H 157/83 11/28/21 19:40 106 H 14 169/84 100 11/28/21 19:20 194/92 11/28/21 19:10 133 H 24 225/134 97 Intake and Output 11/29/21 11/29/21 11/29/21 06:59 14:59 22:59 Other: Voiding Method Bedside Commode # Voids 3 Weight 38.102 kg No acute distress S1-S2 heard Lungs clear No edema Results - Lab Results Most recent lab results Calcium 9.0 mg/dL (8.4-10.2) 11/29/21 05:47 Phosphorus 4.1 mg/dL (2.5-4.5) 11/29/21 05:47 Magnesium 1.8 mg/dL (1.6-2.3) 11/29/21 05:47 11/28/21 06:51 11/29/21 05:47 Assessment and Plan Assessment: #1 acute kidney injury multifactorial -Aminoglycoside causing acute interstitial nephritis -Progressive chronic kidney disease #2 CK D stage 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 #3 mycobacterial infection on amikacin #4 protein calorie malnutrition #5 hypertension with chronic kidney disease Plan: #1 check urine analysis and urine electrolytes. #2 discussed with infectious disease, considering no sensitivities available no other antibiotic choices to treat her. #3 monitor renal function closely avoid nephrotoxic agents.
[2021-11-29] MEDS: SODIUM ACETATE IV SCH ×6 (17:42)
[2021-11-29] MEDS: [UNRECOGNIZED DRUG - OTHER] IV SCH ×6 (17:42)
[2021-11-29] MEDS: CALCIUM GLUCONATE IV SCH ×6 (17:42)
[2021-11-29] MEDS: SODIUM CHLORIDE IV SCH ×6 (17:42)
[2021-11-29] MEDS: FERROUS SULFATE 325 MG TAB PO SCH (17:42)
[2021-11-29 17:56] LABS: Appearance,Urine Clear (Clear); Bilirubin,Urine Negative (Negative); Blood,Urine Negative (Negative); Color,Urine Light Yellow; Glucose,Urine (UA) Negative (Negative); Ketones,Urine Negative (Negative); Leukocyte Esterase,Urine Small (Negative); Nitrite,Urine Negative (Negative); Protein,Urine Negative (Negative); Specific Gravity,Urine 1.009 (1.001-1.035); Squamous Epithelial Cell,Urine <1 /hpf (0-4); Urobilinogen,Urine <2.0 mg/dL (<2.0); WBC,Urine 3 /hpf (0-5)
[2021-11-29] MEDS: MIRTAZAPINE 45 MG TABLET PO SCH (20:21)
[2021-11-30 00:13] LABS: Creatinine,Urine Random 11.5 mg/dL (28.0-217.0)
[2021-11-30] MEDS: HYDROmorphone 0.5 MG/0.5 ML SYRINGE IVP PRN ×5 (00:30→17:54)
[2021-11-30] MEDS: SODIUM CHLORIDE 0.9% IVPB SCH ×3 (02:29→17:55)
[2021-11-30] MEDS: IMIPENEM CILASTATIN IVPB SCH ×2 (02:29→17:55)
[2021-11-30] MEDS: LEVOTHYROXINE 100 MCG TAB PO SCH (06:06)
[2021-11-30] MEDS: AMIKACIN SULFATE IVPB SCH (06:06)
--- NOTE | 2021-11-30 07:39 | P.PN ---
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 On today's evaluation that is 11/29/2021, the patient remains to be afebrile, the patient is breathing comfortably on room air, patient denies chest pain , the patient continued to have a cough but no worsening or sputum production, the patient is still complaining of abdominal pain and nausea but no vomiting Objective - Vital Signs Vital signs: Vital Signs Temp 98.2 F 11/29/21 07:45 Pulse 80 11/29/21 11:58 Resp 18 11/29/21 11:58 BP 179/94 11/29/21 07:45 Pulse Ox 99 11/29/21 07:45 FiO2 Intake & Output 11/28/21 11/29/21 11/29/21 18:59 06:59 18:59 Intake Total 980 Balance 980 Intake: Intake, IV Titration 980 Amount Sodium Chloride 4Meq/ml 980 Vial 28 meq Sodium Acetate 40 meq Calcium Gluconate 1 gm Mvi, Adult No.4 with Vit K 10 ml Trace (Conc-1Ml/Dose) 1 ml In Amino Acids 5 %/ Dextrose 20 % 1,000 ml @ 50 mls/hr IV .[id number] [facility] Rx#:[id number] Other: Voiding Method Bedside Commode # Voids 3 - Exam GENERAL DESCRIPTION: An elderly female lying in bed in no distress RESPIRATORY SYSTEM: Unlabored breathing , decreased breath sounds at bases HEART: S1 S2 regular rate and rhythm , ABDOMEN: Soft , no tenderness EXTREMITIES: No edema feet - Labs CBC & Chem 7: 11/28/21 06:51 11/29/21 05:47 Labs: Abnormal Lab Results - Last 24 Hours (Table) 11/28/21 11/28/21 11/28/21 Range/Units 06:51 19:15 19:31 Sodium 136 L (137-145) mmol/L Carbon Dioxide 21 L (22-30) mmol/L BUN 91 H (7-17) mg/dL Creatinine 1.43 H (0.52-1.04) mg/dL Glucose 121 H (74-99) mg/dL POC Glucose (mg/dL) 23 L (70-110) mg/dL Procalcitonin 0.31 H (0.02-0.09) ng/mL 11/28/21 11/29/21 Range/Units 19:37 05:47 Sodium (137-145) mmol/L Carbon Dioxide (22-30) mmol/L BUN 86 H (7-17) mg/dL Creatinine 1.47 H (0.52-1.04) mg/dL Glucose (74-99) mg/dL POC Glucose (mg/dL) 122 H (70-110) mg/dL Procalcitonin (0.02-0.09) ng/mL Assessment and Plan (1) Pneumonia Current Visit: Yes Status: Acute Code(s): J18.9 - PNEUMONIA, UNSPECIFIED ORGANISM SNOMED Code(s): 363332463 Plan: 1-patient presented to hospital with shortness of breath and cough in this patient did have evidence of cavitating pneumonia on the chest x-ray with recent bronchoscopy culture positive for Mycobacterium abscessus likely the etiology, sensitivities are currently pending 2-patient did have a chest CT on 11/19/2021 with evidence of increase in size and number of cavitating lesion concerning for necrotizing pneumonia 3patient is currently being treated amikacin pharmacy to dose along with with imipenem and tigecycline, kidney function is monitored closely and discuss with the nephrology 4-the patient has developed ileus however repeat CAT scan did not show any evidence of obstruction and surgery has been put on hold Time with Patient: Less than 30
[2021-11-30 08:03] LABS: African American GFR (CKD) 49 (>60 ml/min/1.73 sqM); Anion Gap 12 mmol/L; Blood Urea Nitrogen 76 mg/dL (7-17); Calcium 9.1 mg/dL (8.4-10.2); Carbon Dioxide 26 mmol/L (22-30); Chloride 101 mmol/L (98-107); Glucose 65 mg/dL (74-99); Magnesium 1.9 mg/dL (1.6-2.3); Non-African American GFR(CKD) 43 (>60 ml/min/1.73 sqM); Phosphorus 3.4 mg/dL (2.5-4.5); Potassium 4.9 mmol/L (3.5-5.1); Sodium 139 mmol/L (137-145)
[2021-11-30] MEDS: METHADONE 10 MG TAB PO SCH ×2 (08:06→20:45)
[2021-11-30] MEDS: BUTALB/APAP/CAFF 50-325-40MG TAB PO PRN ×3 (08:07→20:46)
[2021-11-30] MEDS: SODIUM BICARBONATE TAB 650 MG TAB PO SCH (08:07)
[2021-11-30] MEDS: buPROPion XL 300 MG TAB.ER.24H PO SCH (08:07)
[2021-11-30] MEDS: hydrOXYzine pamoate 25 MG CAP PO SCH ×3 (08:07→22:47)
[2021-11-30] MEDS: busPIRone HCl 10 MG TAB PO SCH ×2 (08:07→20:45)
[2021-11-30] MEDS: LORATADINE 10 MG TAB PO SCH (08:07)
[2021-11-30] MEDS: ASPIRIN 81 MG PO SCH (08:07)
[2021-11-30] MEDS: guaiFENesin 600 MG TABLET.ER PO SCH ×2 (08:07→20:45)
[2021-11-30] MEDS: PANTOPRAZOLE 40 MG TABLET PO SCH (08:07)
[2021-11-30] MEDS: HEPARIN SODIUM,PORCINE/PF 5,000 UNIT/0.5 ML SYRINGE SQ SCH ×2 (08:08→20:45)
[2021-11-30] MEDS: PARoxetine 10 MG TAB PO SCH (08:08)
[2021-11-30] MEDS: CHOLESTYRAMINE (WITH SUGAR) 4 GM PACKET PO SCH ×2 (08:08→17:36)
[2021-11-30] MEDS: IPRATROPIUM-ALBUTEROL 3 ML NEB INHALATION SCH ×4 (08:16→19:54)
[2021-11-30] MEDS: SYMBICORT 160-4.5 MCG INHALER INHALATION SCH ×2 (08:16→19:55)
[2021-11-30] MEDS: TIGECYCLINE 50 MG in SODIUM CHLORIDE 0.9% 100 ML IVPB SCH ×2 (10:19→22:42)
--- NOTE | 2021-11-30 12:09 | P.PN ---
Subjective Progress Note Date: 11/30/21 On 11/22/2021 patient seen in follow-up on medical surgical floor. She is resting comfortably in bed, no signs of any respiratory distress. Breathing comfortably. Room air pulse ox is 90%, she is afebrile, patient is on combination of antibiotics with amikacin, tigecycline, and Primaxin for Mycobacterium abscesses. Remains on nebulized bronchodilators. She is 89 able to bring up any phlegm. Blood cultures have shown no growth. Serum pro calcitonin level is low at 0.15, CRP is 3.0. Today's labs have been noted, potassium is 5.6, sodium is 136, B1 is 41, creatinine is 1.18. Patient remains on TPN for nutritional support in addition to a soft diet vital signs have been stable, she's had no fever while inpatient, blood pressure is been stable, no altered mentation. On 11/23/2021 patient seen in follow-up on medical surgical floor. She is resting in bed, still complains of chest discomfort with deep breathing and coughing along the lower bilateral ribs. Does not appear to be in any acute distress, on room air. Her cough was dry, noncongested. She has not been able to provide a sputum sample, she remains on a combination of antibiotics including tigecycline, Primaxin, and amikacin for mycobacterial pulmonary infection. ID service is following. Vitals have been stable, today's labs have been reviewed, her potassium level has been on the rise, 5.6 on yesterday's labs, and at 6.0 on today's labs, sodium is 133, BUN is 56, creatinine is 1.2. Pro calcitonin level was 0.15. Patient remains on TPN with some oral feedings. We spoke to the pharmacist on duty today, and asked them to review the electrolytes and remove the potassium from the TPN solution. Hyperkalemia will be treated per protocol and BMP will be rechecked. On 11/26/2021 patient seen in follow-up on medical surgical floor. She states she had multiple episodes of vomiting last night. No nausea. She still complains of pain in her rib cage, which is worse since the multiple vomiting episodes. Patient continues on triple antibiotic coverage regarding her Mycobacterium pulmonary infection, with a combination of amikacin, tigecycline, and imipenem. She denies any worsening shortness of breath, other than with exertion, room air pulse ox is 96%, she's been afebrile. Hypertensive today, with a blood pressure 186/100, we'll defer to primary care physician for management of blood pressure. Yesterday's chest x-ray showed stable bilateral areas of consolidation. Today's lab 7 noted, CBC still pending, BMP showed potassium of 5.9, sodium of 138, BUN of 73 and creatinine is 1.35. Serum pro calcitonin level is 0.36, which is worse compared her admission serum pro calcitonin level of 0.15. On 11/27/2021 patient seen in follow-up on medical surgical floor. She denies worsening dyspnea however she has been nauseous, and vomiting, she has been able to eat. She remains on TPN for nutritional support. Her oral mucous membranes are looking dry. She has been taken sips of water. Patient remains on antibiotics with tigecycline, amikacin, and imipenem/cilasttin. Patient has been afebrile, her blood pressure has been running elevated, she remains on room air with pulse ox of 97%. On 11/28/2021 patient is seen in follow-up on medical surgical floor. She states she still not able to keep much down, she has been nauseous and having frequent episodes of vomiting. From pulmonary perspective she still complaining of some pain under the rib cage with deep breathing and coughing, she remains on room air, she does not appear to be in any respiratory distress, she's been afebrile, remains on antibiotics with tigecycline, amikacin, and imipenem/cilasttin. remains on TPN for antibiotic coverage.today's labs reviewed The patient is seen today on 09/29/2021 in follow-up on the regular medical floor. She did have an episode of hypoglycemia following insulin given for hyperkalemia last evening. She is sitting up in bed. Awake and alert in no acute distress. Maintaining good O2 saturations in the 90s on room air. Follow- up computed tomography scan of the pelvis revealed no suspicious changes for obstruction. No plans for surgical intervention. blood cultures revealed no growth. Sodium 138. Potassium 4.7. Bicarb 27. BUN 86. Creatinine 1.47. Glucose 105. She continues to be nourished with TPN and lipids. She is taking oral intake as well. She remains on DuoNeb inhalations, Symbicort, heparin for DVT prophylaxis. She remains on antibiotics in the form of imipenem and amikacin. 09/30/2021, no new complaints and the patient has no significant abdominal pain. She did have small bowel movement that was quite firm and for that reason the patient is currently on a combination of Questran, MiraLAX and mag citrate. No other new complaints otherwise for now. He remains on TPN. She remains the same antibiotic coverage for now. Objective - Vital Signs Vital signs: Vital Signs Temp 98.2 F 11/30/21 08:00 Pulse 84 11/30/21 11:52 Resp 18 11/30/21 08:00 BP 172/89 11/30/21 08:00 Pulse Ox 97 11/30/21 08:00 FiO2 Intake & Output 11/29/21 11/30/21 11/30/21 18:59 06:59 18:59 Intake Total 1288 Output Total 1999 Balance -712 Weight 38.102 kg Intake: Intake, IV Titration 1048 Amount Sodium Chloride 4Meq/ml 1048 Vial 28 meq Sodium Acetate 40 meq Calcium Gluconate 1 gm Mvi, Adult No.4 with Vit K 10 ml Trace (Conc-1Ml/Dose) 1 ml In Amino Acids 5 %/ Dextrose 20 % 1,000 ml @ 50 mls/hr IV .[id number] [facility] Rx#:[id number] Oral 240 Output: Urine 2000 Other: Voiding Method Bedside Commode # Voids 3 - Exam GENERAL EXAM: Alert, very pleasant, 76-year-old female, frail, cachectic, on room air, appears to be in no acute distress, on room air comfortable in no apparent distress. HEAD: Normocephalic/atraumatic. EYES: Normal reaction of pupils, equal size. Conjunctiva pink, sclera white. NOSE: Clear with pink turbinates. THROAT: No erythema or exudates. NECK: No masses, no JVD, no thyroid enlargement, no adenopathy. CHEST: No chest wall deformity. Symmetrical expansion. LUNGS: Equal air entry with no crackles, wheeze, rhonchi or dullness. CVS: Regular rate and rhythm, normal S1 and S2, no gallops, no murmurs, no rubs ABDOMEN: Soft, nontender. No hepatosplenomegaly, normal bowel sounds, no guarding or rigidity. EXTREMITIES: No clubbing, no edema, no cyanosis, 2+ pulses and upper and lower extremities. MUSCULOSKELETAL: Muscle strength and tone normal. SPINE: No scoliosis or deformity SKIN: No rashes CENTRAL NERVOUS SYSTEM: No focal deficits, tone is normal in all 4 extremities. PSYCHIATRIC: Alert and oriented -3. Appropriate affect. Intact judgment and insight. - Labs CBC & Chem 7: 11/28/21 06:51 11/30/21 06:57 Labs: Abnormal Lab Results - Last 24 Hours (Table) 11/29/21 11/29/21 11/30/21 Range/Units 17:51 17:51 06:57 BUN 76 H (7-17) mg/dL Creatinine 1.24 H (0.52-1.04) mg/dL Glucose 65 L (74-99) mg/dL Ur Leukocyte Esterase Small H (Negative) Ur Random Creatinine 11.5 L (28.0-217.0) mg/dL Assessment and Plan Plan: #1. Shortness of breath, ilateral rib pain, cough related to recurrent aspiration. COVID-19 PCR, influenza A and B were negative. Chest x-ray showed worsening left perihilar and lower lobe infiltrate, and improving right perihilar infiltrate. 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 BAL culture was sent to the [place] [facility] for identification. ID services on the case, current antibiotics include amikacin, tigecycline, and primaxin #2. Dehydration, related to nausea and vomiting, #3. Chronic pain syndrome, most recently on methadone for pain control #4. Chronic kidney disease stage III at baseline #5. Malnutrition and failure to thrive #6. Recurrent aspiration with multiple hospitalizations, patient is currently on TPN for nutritional support in addition to some oral feedings on soft diet #6. History of gastrectomy #7. Chronic pain syndrome #8. Previous history of CVA #9. History of hypothyroidism #10. History of spinal stenosis and chronic back pain #11. History of chronic anemia of chronic disease #12. Anxiety/depression #13. Hyperkalemia, related to IV infusion via TPN with electrolytes, the TPN for mail will be adjusted and serum potassium was treated protocol #13, constipation noticeably bowel obstruction Plan: Respiratory status is stable Continue TPN Continue laxatives Continue same antibiotic coverage We'll continue to follow
--- NOTE | 2021-11-30 13:41 | P.PN ---
Subjective Progress Note Date: 11/30/21 On 11/18/2021 patient was seen and examined on the medical floor she is alert and oriented 3 in no apparent distress, she is complaining of cough and shortness of breath otherwise she denies any complaints, patient has a prolonged past medical history with recurrent admissions to [facility] was pneumonia she had a bronchoscopy was Dr. 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 Gregorio infectious disease. She was started on IV antibiotic in the emergency room, will continue with same at this time will resume TPN, consultation for pulmonary and infectious disease were initiated On 11/19/2021 patient was seen and examined on the medical floor she is alert an d oriented 3 in no apparent distress she is complaining of abdominal cramping and diarrhea she is still complaining of cough and shortness of breath otherwise she denies any complaints there is no fever or chills no headache or dizziness no chest pain no nausea or vomiting, no blood in the stools no burning with urination no frequency or urgency and no hematuria. At this time will send a stool sample for C. diff will continue was current management otherwise. On 11/20/2021 patient was seen and examined on the medical floor she is alert and oriented in no distress, she is still complaining of cough and shortness of breath otherwise she denies any complaints there is no fever or chills no h eadache or dizziness no chest pain no nausea or vomiting no abdominal pain no blood in the stools no burning with urination no frequency or urgency no hematuria, patient still complaining of some diarrhea .Will check stools for C. diff On 11/21/2021 patient was seen and examined on the medical floor she is alert and oriented in no distress, she is still complaining of cough and shortness of breath otherwise she denies any complaints there is no fever or chills no headache or dizziness no chest pain no nausea or vomiting no abdominal pain no blood in the stools no burning with urination no frequency or urgency no hematuria, patient still complaining of some diarrhea. On 11/22/2021 patient was seen and examined on the medical floor she is alert and oriented 3 in no apparent distress she is complaining of abdominal pain and cramping otherwise she denies any complaints at this time there is no fever or chills no headache or dizziness no chest pain no shortness of breath no cough no nausea or vomiting no blood in the stools no burning with urination frequency or urgency and no hematuria On 11/23/2021 patient was seen and examined on the medical floor she is alert and oriented 3 in no distress she is still complaining of abdominal discomfort but states has improved since yesterday otherwise she denies any complaints there is no fever or chills no headache or dizziness no chest pain no shortness of breath no cough no nausea or vomiting no diarrhea no blood in the stools no burning with urination no frequency or urgency and no hematuria. Abdomen x-ray and abdomen ultrasound reviewed no acute abnormality of the abdomen. On 11/24/2021 patient was seen and examined on the medical floor she is alert and oriented 3 in no apparent distress there is no fever or chills no headache or dizziness no chest pain no shortness of breath no cough no nausea or vomiting no abdominal pain no diarrhea no blood in the stools no burning with urination no frequency or urgency and no hematuria. Abdominal discomfort has improved medication and labs were reviewed continue with current regimen will follow in a.m. On 11/25/2021 patient was seen and examined on the medical floor she is alert and oriented 3 in no distress she is complaining of shortness of breath with activity her abdominal discomfort has improved there is no fever or chills no headache or dizziness no chest pain no nausea or vomiting no abdominal pain no diarrhea no blood in the stools no burning with urination no frequency or urgency and no hematuria On 11/26/2021 patient is alert and oriented in no distress she is complaining of shortness of breath with activity she is complaining of episodes of vomiting oth erwise she denies any complaints there is no fever or chills no headache or dizziness no chest pain no shortness of breath no cough, no abdominal pain no diarrhea no blood in the stools no burning with urination no frequency or urgency and no hematuria. On 11/27/2021 patient was seen and examined on the medical floor she is alert and oriented 3 in no apparent distress she is still complaining of abdominal discomfort and vomiting otherwise she denies any complaints there is no fever or chills no headache or dizziness no chest pain no shortness of breath no cough no urinary symptoms. At this time will check computed tomography scan of the abdomen and pelvis with oral contrast, Will consult Dr. auguste for evaluation of abdominal pain and vomiting On 11/28/2021 patient was seen and examined on the medical floor she is alert and oriented 3 in no apparent distress she is still complaining of abdominal discomfort and vomiting otherwise she denies any complaints there is no fever or chills no headache or dizziness no chest pain no shortness of breath no cough no urinary symptoms. patient has evidence of small bowel obstruction, Dr Guadalupe following On 11/29/2021 patient was seen and examined on the medical floor she is alert and oriented 3 in no apparent distress there is no fever or chills no headache or dizziness no chest pain no shortness of breath she has occasional cough there is no nausea or vomiting she has mild abdominal discomfort no diarrhea no blood in the stools no burning with urination no frequency or urgency and no hematuria. Repeat computed tomography scan of the abdomen and pelvis, reveals improvement no surgical intervention is recommended at this time, continue with current medication will follow in a.m.. On 11/30/2021 patient was seen and examined on the medical floor she is alert and oriented 3 in no apparent distress she is complaining of generalized fatigue and nausea she is complaining of shortness of breath with activity otherwise she denies any complaints there is no fever or chills no headache or dizziness no chest pain no shortness of breath no cough no vomiting no abdominal pain no diarrhea and no urinary symptoms Objective - Vital Signs Vital signs: Vital Signs Temp 98.2 F 11/30/21 08:00 Pulse 86 11/30/21 12:06 Resp 18 11/30/21 08:00 BP 172/89 11/30/21 08:00 Pulse Ox 97 11/30/21 08:00 FiO2 Intake & Output 11/29/21 11/30/21 11/30/21 18:59 06:59 18:59 Intake Total 1288 Output Total 1999 Balance -712 Weight 38.102 kg Intake: Intake, IV Titration 1048 Amount Sodium Chloride 4Meq/ml 1048 Vial 28 meq Sodium Acetate 40 meq Calcium Gluconate 1 gm Mvi, Adult No.4 with Vit K 10 ml Trace (Conc-1Ml/Dose) 1 ml In Amino Acids 5 %/ Dextrose 20 % 1,000 ml @ 50 mls/hr IV .[id number] [facility] Rx#:[id number] Oral 240 Output: Urine 1999 Other: Voiding Method Bedside Commode Bedside Commode # Voids 3 - Exam In general patient is alert and oriented x 3 in no distress HEENT head normocephalic and atraumatic Neck is supple no JVD no goiter no lymphadenopathy no carotid bruit Chest examination reveals a scattered crackles in both lung calixto no wheezing Cardiac exam reveals regular heart sounds S1 and S2 no gallops no murmurs Abdomen is soft nontender no organomegaly with normal bowel sounds Extremity exam reveals no edema no cyanosis or clubbing Neurological examination reveals no gross focal deficits - Labs CBC & Chem 7: 11/28/21 06:51 08 06:57 Labs: Abnormal Lab Results - Last 24 Hours (Table) 11/29/21 11/29/21 11/30/21 Range/Units 17:51 17:51 06:57 BUN 76 H (7-17) mg/dL Creatinine 1.24 H (0.52-1.04) mg/dL Glucose 65 L (74-99) mg/dL Ur Leukocyte Esterase Small H (Negative) Ur Random Creatinine 11.5 L (28.0-217.0) mg/dL Assessment and Plan Plan: Recurrent pneumonia was cough and shortness of breath Evidence of dehydration related to nausea vomiting Malnutrition related to previous gastrectomy maintained on TPN Recurrent aspiration pneumonia Previous history of stroke Underlying history of hypothyroidism Underlying history of spinal stenosis with chronic back pain Underlying history of depression with anxiety At this time patient is admitted to medical floor She was started on IV antibiotic Zosyn and Zithromax in the emergency room will continue with same at this time Consultation for pulmonary and infectious disease initiated For DVT prophylaxis patient on subcu heparin
[2021-11-30 13:59] LABS: Basophils # (A) 0.07 X 10*3/uL (0.00-0.10); Basophils % (A) 0.4 %; Eosinophils # (A) 0.19 X 10*3/uL (0.04-0.35); HCT 38.2 % (37.2-46.3); HGB 11.7 g/dL (12.0-15.0); Immature Grans, Automated 0.5 %; Lymphocytes # (A) 2.74 X 10*3/uL (0.90-5.00); Lymphocytes % (A) 14.8 %; MCH 26.4 pg (27.0-32.0); MCHC 30.6 g/dL (32.0-37.0); Mean Platelet Volume 9.2 fL (9.5-12.2); Monocytes # (A) 1.16 X 10*3/uL (0.20-1.00); Monocytes % (A) 6.3 %; NRBC Per 100 WBC 0 /100 WBCS (0.0-0.0); Neutrophils # (A) 14.31 X 10*3/uL (1.80-7.70); Platelet Count 496 X 10*3/uL (140-440); RBC 4.44 X 10*6/uL (4.10-5.20); RDW 15.8 % (11.5-14.5); WBC 18.56 X 10*3/uL (4.50-10.00)
--- NOTE | 2021-11-30 14:13 | P.PN ---
Subjective Progress Note Date: 11/30/21 Follow-up for acute kidney injury. Feeling better today. Eating lunch. No nausea vomiting diarrhea. Objective - Vital Signs Vital signs: Vital Signs Temp 98.2 F 11/30/21 08:00 Pulse 86 11/30/21 12:06 Resp 18 11/30/21 08:00 BP 172/89 11/30/21 08:00 Pulse Ox 97 11/30/21 08:00 FiO2 Intake & Output 11/29/21 11/30/21 11/30/21 18:59 06:59 18:59 Intake Total 1288 Output Total 1999 Balance -712 Weight 38.102 kg Intake: Intake, IV Titration 1048 Amount Sodium Chloride 4Meq/ml 1048 Vial 28 meq Sodium Acetate 40 meq Calcium Gluconate 1 gm Mvi, Adult No.4 with Vit K 10 ml Trace (Conc-1Ml/Dose) 1 ml In Amino Acids 5 %/ Dextrose 20 % 1,000 ml @ 50 mls/hr IV .[id number] [facility] Rx#:[id number] Oral 240 Output: Urine 1999 Other: Voiding Method Bedside Commode Bedside Commode # Voids 3 - Exam No acute distress S1-S2 heard Lungs clear No edema - Labs CBC & Chem 7: 11/30/21 06:57 11/30/21 06:57 Labs: Abnormal Lab Results - Last 24 Hours (Table) 11/29/21 11/29/21 11/30/21 Range/Units 17:51 17:51 06:57 WBC (4.50-10.00) X 10*3/uL Hgb (12.0-15.0) g/dL MCH (27.0-32.0) pg MCHC (32.0-37.0) g/dL RDW (11.5-14.5) % Plt Count (140-440) X 10*3/uL MPV (9.5-12.2) fL Immature Gran # (0.00-0.04) X 10*3/uL Neutrophils # (1.80-7.70) X 10*3/uL Monocytes # (0.20-1.00) X 10*3/uL BUN 76 H (7-17) mg/dL Creatinine 1.24 H (0.52-1.04) mg/dL Glucose 65 L (74-99) mg/dL Ur Leukocyte Esterase Small H (Negative) Ur Random Creatinine 11.5 L (28.0-217.0) mg/dL 11/30/21 Range/Units 06:57 WBC 18.56 H (4.50-10.00) X 10*3/uL Hgb 11.7 L (12.0-15.0) g/dL MCH 26.4 L (27.0-32.0) pg MCHC 30.6 L (32.0-37.0) g/dL RDW 15.8 H (11.5-14.5) % Plt Count 496 H (140-440) X 10*3/uL MPV 9.2 L (9.5-12.2) fL Immature Gran # 0.09 H (0.00-0.04) X 10*3/uL Neutrophils # 14.31 H (1.80-7.70) X 10*3/uL Monocytes # 1.16 H (0.20-1.00) X 10*3/uL BUN (7-17) mg/dL Creatinine (0.52-1.04) mg/dL Glucose (74-99) mg/dL Ur Leukocyte Esterase (Negative) Ur Random Creatinine (28.0-217.0) mg/dL Assessment and Plan Assessment: #1 acute kidney injury multifactorial -Aminoglycoside causing acute interstitial nephritis -Progressive chronic kidney disease #2 CK D stage 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 #3 mycobacterial infection on amikacin #4 protein calorie malnutrition #5 hypertension with chronic kidney disease Plan: #1 renal function stable. #2 discussed with infectious disease, considering no sensitivities available no other antibiotic choices to treat her. #3 monitor renal function closely avoid nephrotoxic agents.
[2021-11-30] MEDS: SODIUM ACETATE IV SCH ×6 (14:40)
[2021-11-30] MEDS: CALCIUM GLUCONATE IV SCH ×6 (14:40)
[2021-11-30] MEDS: SODIUM CHLORIDE IV SCH ×6 (14:40)
[2021-11-30] MEDS: [UNRECOGNIZED DRUG - OTHER] IV SCH ×6 (14:40)
[2021-11-30] MEDS: SODIUM CHLORIDE 0.9% 1,000 ML IV SCH (17:40)
[2021-11-30] MEDS: FERROUS SULFATE 325 MG TAB PO SCH (17:40)
[2021-11-30] MEDS: MIRTAZAPINE 45 MG TABLET PO SCH (20:45)
[2021-12-01] MEDS: HYDROmorphone 0.5 MG/0.5 ML SYRINGE IVP PRN ×5 (03:13→21:16)
[2021-12-01] MEDS: BUTALB/APAP/CAFF 50-325-40MG TAB PO PRN ×4 (03:59→21:52)
[2021-12-01] MEDS: SODIUM CHLORIDE 0.9% IVPB SCH ×2 (04:01→15:49)
[2021-12-01] MEDS: IMIPENEM CILASTATIN IVPB SCH ×2 (04:01→15:49)
[2021-12-01] MEDS: buPROPion XL 300 MG TAB.ER.24H PO SCH (07:54)
[2021-12-01] MEDS: guaiFENesin 600 MG TABLET.ER PO SCH ×2 (07:55→21:14)
[2021-12-01] MEDS: METHADONE 10 MG TAB PO SCH ×2 (07:55→21:12)
[2021-12-01] MEDS: LEVOTHYROXINE 100 MCG TAB PO SCH (07:55)
[2021-12-01] MEDS: HEPARIN SODIUM,PORCINE/PF 5,000 UNIT/0.5 ML SYRINGE SQ SCH ×3 (07:55→23:16)
[2021-12-01] MEDS: ASPIRIN 81 MG PO SCH (07:55)
[2021-12-01] MEDS: SODIUM BICARBONATE TAB 650 MG TAB PO SCH (07:55)
[2021-12-01] MEDS: PANTOPRAZOLE 40 MG TABLET PO SCH (07:56)
[2021-12-01] MEDS: hydrOXYzine pamoate 25 MG CAP PO SCH ×3 (07:56→21:15)
[2021-12-01] MEDS: LORATADINE 10 MG TAB PO SCH (07:56)
[2021-12-01] MEDS: PARoxetine 10 MG TAB PO SCH (07:56)
[2021-12-01] MEDS: polyethylene glycoL 3350 17 GM POWD.PACK PO SCH (07:57)
[2021-12-01] MEDS: busPIRone HCl 10 MG TAB PO SCH ×2 (07:57→21:14)
[2021-12-01 08:03] LABS: ALT 33 U/L (4-34); AST 39 U/L (14-36); African American GFR (CKD) 43 (>60 ml/min/1.73 sqM); Albumin 3.4 g/dL (3.5-5.0); Albumin/Globulin Ratio 1.1; Alkaline Phosphatase 260 U/L (38-126); Anion Gap 13 mmol/L; Blood Urea Nitrogen 75 mg/dL (7-17); Calcium 8.9 mg/dL (8.4-10.2); Carbon Dioxide 26 mmol/L (22-30); Chloride 100 mmol/L (98-107); Globulin 3.1 g/dL; Glucose 100 mg/dL (74-99); Non-African American GFR(CKD) 37 (>60 ml/min/1.73 sqM); Phosphorus 3.3 mg/dL (2.5-4.5); Sodium 139 mmol/L (137-145); Total Bilirubin 0.2 mg/dL (0.2-1.3); Total Protein 6.5 g/dL (6.3-8.2)
[2021-12-01] MEDS: SYMBICORT 160-4.5 MCG INHALER INHALATION SCH ×2 (08:10→19:14)
[2021-12-01] MEDS: IPRATROPIUM-ALBUTEROL 3 ML NEB INHALATION SCH ×4 (08:10→19:14)
[2021-12-01] MEDS: TIGECYCLINE 50 MG in SODIUM CHLORIDE 0.9% 100 ML IVPB SCH ×2 (10:08→21:37)
--- NOTE | 2021-12-01 10:29 | P.PN ---
Subjective Progress Note Date: 11/30/21 Principal diagnosis: Pneumonia possible Mycobacterium abscessus Patient is a 76-year-old female with a past medical history significant for gastrectomy on chronic TPN this patient also have a history of recurrent pneumonia patient did have bronchoscopy 10/09/2021 which did grow Mycobacterium abscessus, no readmitted to the hospital with increased shortness of breath or cough and evidence of worsening pneumonia with cavitation. On today's evaluation that is 11/30/2021, the patient denies any fever or any chills, the patient is breathing comfortably on room air, patient denies chest pain , the patient denies any worsening cough or sputum production, still complaining of abdominal pain and nausea , but no diarrhea Objective - Vital Signs Vital signs: Vital Signs Temp 98.2 F 11/30/21 08:00 Pulse 86 11/30/21 12:06 Resp 18 11/30/21 08:00 BP 172/89 11/30/21 08:00 Pulse Ox 97 11/30/21 08:00 FiO2 Intake & Output 11/29/21 11/30/21 11/30/21 18:59 06:59 18:59 Intake Total 1288 Output Total 1999 Balance -712 Weight 38.102 kg Intake: Intake, IV Titration 1048 Amount Sodium Chloride 4Meq/ml 1048 Vial 28 meq Sodium Acetate 40 meq Calcium Gluconate 1 gm Mvi, Adult No.4 with Vit K 10 ml Trace (Conc-1Ml/Dose) 1 ml In Amino Acids 5 %/ Dextrose 20 % 1,000 ml @ 50 mls/hr IV .[id number] [facility] Rx#:[id number] Oral 240 Output: Urine 1999 Other: Voiding Method Bedside Commode Bedside Commode # Voids 3 - Exam GENERAL DESCRIPTION: An elderly female lying in bed in no distress RESPIRATORY SYSTEM: Unlabored breathing , decreased breath sounds at bases HEART: S1 S2 regular rate and rhythm , ABDOMEN: Soft , no tenderness EXTREMITIES: No edema feet - Labs CBC & Chem 7: 11/30/21 06:57 12/01/21 07:17 Labs: Abnormal Lab Results - Last 24 Hours (Table) 11/29/21 11/29/21 11/30/21 Range/Units 17:51 17:51 06:57 WBC (4.50-10.00) X 10*3/uL Hgb (12.0-15.0) g/dL MCH (27.0-32.0) pg MCHC (32.0-37.0) g/dL RDW (11.5-14.5) % Plt Count (140-440) X 10*3/uL MPV (9.5-12.2) fL Immature Gran # (0.00-0.04) X 10*3/uL Neutrophils # (1.80-7.70) X 10*3/uL Monocytes # (0.20-1.00) X 10*3/uL BUN 76 H (7-17) mg/dL Creatinine 1.24 H (0.52-1.04) mg/dL Glucose 65 L (74-99) mg/dL Ur Leukocyte Esterase Small H (Negative) Ur Random Creatinine 11.5 L (28.0-217.0) mg/dL 11/30/21 Range/Units 06:57 WBC 18.56 H (4.50-10.00) X 10*3/uL Hgb 11.7 L (12.0-15.0) g/dL MCH 26.4 L (27.0-32.0) pg MCHC 30.6 L (32.0-37.0) g/dL RDW 15.8 H (11.5-14.5) % Plt Count 496 H (140-440) X 10*3/uL MPV 9.2 L (9.5-12.2) fL Immature Gran # 0.09 H (0.00-0.04) X 10*3/uL Neutrophils # 14.31 H (1.80-7.70) X 10*3/uL Monocytes # 1.16 H (0.20-1.00) X 10*3/uL BUN (7-17) mg/dL Creatinine (0.52-1.04) mg/dL Glucose (74-99) mg/dL Ur Leukocyte Esterase (Negative) Ur Random Creatinine (28.0-217.0) mg/dL Assessment and Plan (1) Pneumonia Current Visit: Yes Status: Acute Code(s): J18.9 - PNEUMONIA, UNSPECIFIED ORGANISM SNOMED Code(s): 360769961 Plan: 1-patient presented to hospital with shortness of breath and cough in this patient did have evidence of cavitating pneumonia on the chest x-ray with recent bronchoscopy culture positive for Mycobacterium abscessus likely the etiology, sensitivities are currently pending 2-patient did have a chest CT on 11/19/2021 with evidence of increase in size and number of cavitating lesion concerning for necrotizing pneumonia 3patient is currently being treated amikacin pharmacy to dose along with with imipenem and tigecycline, kidney function is monitored closely and discuss with the nephrology 4-the patient did have persistent elevated white count despite on adequate treatment of underlying mycobacterial infection we'll check a blood cultures from PICC line and peripherally Time with Patient: Less than 30
[2021-12-01] MEDS: [UNRECOGNIZED DRUG - OTHER] IV SCH ×6 (10:30)
[2021-12-01] MEDS: SODIUM ACETATE IV SCH ×6 (10:30)
[2021-12-01] MEDS: CHOLESTYRAMINE (WITH SUGAR) 4 GM PACKET PO SCH ×2 (10:30→18:24)
[2021-12-01] MEDS: SODIUM CHLORIDE IV SCH ×6 (10:30)
[2021-12-01] MEDS: CALCIUM GLUCONATE IV SCH ×6 (10:30)
--- NOTE | 2021-12-01 10:40 | P.PN ---
Subjective Progress Note Date: 11/30/21 CHIEF COMPLAINT: Severe protein malnutrition HISTORY OF PRESENT ILLNESS: The patient is a 76-year-old female with severe protein malnutrition including underweight, BMI 15.4. She is tolerating diet. Patient's on TPN. She had a small bowel movement. ROS: No fevers or chills. No new chest pain. No productive sputum PHYSICAL EXAM: VITAL SIGNS: Reviewed CONSTITUTIONAL: Well developed and in no acute distress. EYES: Conjuctivae without sclera icterus. Extraocular movements grossly intact. HEAD, EARS, NOSE, THROAT: Moist buccal mucosa. Head is atraumatic, normocephalic. Hears conversational speech. No nasal drainage. RESPIRATORY: Non-labored respirations and equal bilateral excursions. CARDIOVASCULAR: Palpable 2+ radial pulses. ABDOMEN: Scaphoid. No peritonitis. MUSCULOSKELETAL: No gross deformity of the lower extremities noted. No clubbing. No cyanosis. SKIN: Good skin turgor. Well perfused. NEUROLOGIC: Cranial nerves II through XII grossly intact. No focal or lateraliz ing signs. PSYCH: Appropriate affect. Alert and oriented to person, place and time. CLINICAL LABS: Reviewed. Creatinine down to 1.47 now 1.24. WBC elevated at 19.7 ASSESSMENT: 1. Severe protein malnutrition 2. Underweight PLAN: 1. Diet as tolerated 2. Continue TPN Objective - Vital Signs Vital signs: Vital Signs Temp 97.5 F L 11/30/21 19:34 Pulse 77 11/30/21 20:08 Resp 17 11/30/21 19:34 BP 143/74 11/30/21 19:34 Pulse Ox 100 11/30/21 19:34 FiO2 Intake & Output 11/30/21 11/30/21 12/01/21 06:59 18:59 06:59 Intake Total 1048 Output Total 1300 700 Balance -252 -700 Intake: Intake, IV Titration 1048 Amount Sodium Chloride 4Meq/ml 1048 Vial 28 meq Sodium Acetate 40 meq Calcium Gluconate 1 gm Mvi, Adult No.4 with Vit K 10 ml Trace (Conc-1Ml/Dose) 1 ml In Amino Acids 5 %/ Dextrose 20 % 1,000 ml @ 50 mls/hr IV .[id number] [facility] Rx#:[id number] Output: Urine 1300 700 Other: Voiding Method Bedside Commode Bedside Commode # Voids 3 # Bowel Movements 1 - Labs CBC & Chem 7: 11/30/21 06:57 12/01/21 07:17 Labs: Abnormal Lab Results - Last 24 Hours (Table) 11/29/21 11/30/21 11/30/21 Range/Units 17:51 06:57 06:57 WBC 18.56 H (4.50-10.00) X 10*3/uL Hgb 11.7 L (12.0-15.0) g/dL MCH 26.4 L (27.0-32.0) pg MCHC 30.6 L (32.0-37.0) g/dL RDW 15.8 H (11.5-14.5) % Plt Count 496 H (140-440) X 10*3/uL MPV 9.2 L (9.5-12.2) fL Immature Gran # 0.09 H (0.00-0.04) X 10*3/uL Neutrophils # 14.31 H (1.80-7.70) X 10*3/uL Monocytes # 1.16 H (0.20-1.00) X 10*3/uL BUN 76 H (7-17) mg/dL Creatinine 1.24 H (0.52-1.04) mg/dL Glucose 65 L (74-99) mg/dL Ur Random Creatinine 11.5 L (28.0-217.0) mg/dL
--- NOTE | 2021-12-01 10:59 | P.PN ---
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 Gregorio infectious disease. She was started on IV antibiotic in the emergency room, will continue with same at this time will resume TPN, consultation for pulmonary and infectious disease were initiated On 11/19/2021 patient was seen and examined on the medical floor she is alert an d oriented 3 in no apparent distress she is complaining of abdominal cramping and diarrhea she is still complaining of cough and shortness of breath otherwise she denies any complaints there is no fever or chills no headache or dizziness no chest pain no nausea or vomiting, no blood in the stools no burning with urination no frequency or urgency and no hematuria. At this time will send a stool sample for C. diff will continue was current management otherwise. On 11/20/2021 patient was seen and examined on the medical floor she is alert and oriented in no distress, she is still complaining of cough and shortness of breath otherwise she denies any complaints there is no fever or chills no h eadache or dizziness no chest pain no nausea or vomiting no abdominal pain no blood in the stools no burning with urination no frequency or urgency no hematuria, patient still complaining of some diarrhea .Will check stools for C. diff On 11/21/2021 patient was seen and examined on the medical floor she is alert and oriented in no distress, she is still complaining of cough and shortness of breath otherwise she denies any complaints there is no fever or chills no headache or dizziness no chest pain no nausea or vomiting no abdominal pain no blood in the stools no burning with urination no frequency or urgency no hematuria, patient still complaining of some diarrhea. On 11/22/2021 patient was seen and examined on the medical floor she is alert and oriented 3 in no apparent distress she is complaining of abdominal pain and cramping otherwise she denies any complaints at this time there is no fever or chills no headache or dizziness no chest pain no shortness of breath no cough no nausea or vomiting no blood in the stools no burning with urination frequency or urgency and no hematuria On 11/23/2021 patient was seen and examined on the medical floor she is alert and oriented 3 in no distress she is still complaining of abdominal discomfort but states has improved since yesterday otherwise she denies any complaints there is no fever or chills no headache or dizziness no chest pain no shortness of breath no cough no nausea or vomiting no diarrhea no blood in the stools no burning with urination no frequency or urgency and no hematuria. Abdomen x-ray and abdomen ultrasound reviewed no acute abnormality of the abdomen. On 11/24/2021 patient was seen and examined on the medical floor she is alert and oriented 3 in no apparent distress there is no fever or chills no headache or dizziness no chest pain no shortness of breath no cough no nausea or vomiting no abdominal pain no diarrhea no blood in the stools no burning with urination no frequency or urgency and no hematuria. Abdominal discomfort has improved medication and labs were reviewed continue with current regimen will follow in a.m. On 11/25/2021 patient was seen and examined on the medical floor she is alert and oriented 3 in no distress she is complaining of shortness of breath with activity her abdominal discomfort has improved there is no fever or chills no headache or dizziness no chest pain no nausea or vomiting no abdominal pain no diarrhea no blood in the stools no burning with urination no frequency or urgency and no hematuria On 11/26/2021 patient is alert and oriented in no distress she is complaining of shortness of breath with activity she is complaining of episodes of vomiting oth erwise she denies any complaints there is no fever or chills no headache or dizziness no chest pain no shortness of breath no cough, no abdominal pain no diarrhea no blood in the stools no burning with urination no frequency or urgency and no hematuria. On 11/27/2021 patient was seen and examined on the medical floor she is alert and oriented 3 in no apparent distress she is still complaining of abdominal discomfort and vomiting otherwise she denies any complaints there is no fever or chills no headache or dizziness no chest pain no shortness of breath no cough no urinary symptoms. At this time will check computed tomography scan of the abdomen and pelvis with oral contrast, Will consult Dr. auguste for evaluation of abdominal pain and vomiting On 11/28/2021 patient was seen and examined on the medical floor she is alert and oriented 3 in no apparent distress she is still complaining of abdominal discomfort and vomiting otherwise she denies any complaints there is no fever or chills no headache or dizziness no chest pain no shortness of breath no cough no urinary symptoms. patient has evidence of small bowel obstruction, Dr Guadalupe following On 11/29/2021 patient was seen and examined on the medical floor she is alert and oriented 3 in no apparent distress there is no fever or chills no headache or dizziness no chest pain no shortness of breath she has occasional cough there is no nausea or vomiting she has mild abdominal discomfort no diarrhea no blood in the stools no burning with urination no frequency or urgency and no hematuria. Repeat computed tomography scan of the abdomen and pelvis, reveals improvement no surgical intervention is recommended at this time, continue with current medication will follow in a.m.. On 11/30/2021 patient was seen and examined on the medical floor she is alert and oriented 3 in no apparent distress she is complaining of generalized fatigue and nausea she is complaining of shortness of breath with activity otherwise she denies any complaints there is no fever or chills no headache or dizziness no chest pain no shortness of breath no cough no vomiting no abdominal pain no diarrhea and no urinary symptoms On 12/01/2021 patient was seen and examined on the medical floor she is alert and oriented 3 she is still complaining of generalized weakness otherwise she denies any complaints there is no fever or chills no headache or dizziness no chest pain no shortness of breath she has occasional cough no nausea or vomiting no abdominal pain no diarrhea and no urinary symptoms Objective - Vital Signs Vital signs: Vital Signs Temp 97.9 F 12/01/21 07:54 Pulse 86 12/01/21 08:11 Resp 16 12/01/21 08:11 BP 162/79 12/01/21 07:54 Pulse Ox 99 12/01/21 07:54 FiO2 Intake & Output 11/30/21 12/01/21 12/01/21 18:59 06:59 18:59 Intake Total 1048 Output Total 1300 700 Balance -252 -700 Intake: Intake, IV Titration 1048 Amount Sodium Chloride 4Meq/ml 1048 Vial 28 meq Sodium Acetate 40 meq Calcium Gluconate 1 gm Mvi, Adult No.4 with Vit K 10 ml Trace (Conc-1Ml/Dose) 1 ml In Amino Acids 5 %/ Dextrose 20 % 1,000 ml @ 50 mls/hr IV .[id number] [facility] Rx#:[id number] Output: Urine 1300 700 Other: Voiding Method Bedside Commode Bedside Commode # Voids 2 # Bowel Movements 1 1 - Exam In general patient is alert and oriented x 3 in no distress HEENT head normocephalic and atraumatic Neck is supple no JVD no goiter no lymphadenopathy no carotid bruit Chest examination reveals a scattered crackles in both lung calixto no wheezing Cardiac exam reveals regular heart sounds S1 and S2 no gallops no murmurs Abdomen is soft nontender no organomegaly with normal bowel sounds Extremity exam reveals no edema no cyanosis or clubbing Neurological examination reveals no gross focal deficits - Labs CBC & Chem 7: 11/30/21 06:57 12/01/21 07:17 Labs: Abnormal Lab Results - Last 24 Hours (Table) 11/30/21 12/01/21 Range/Units 06:57 07:17 WBC 18.56 H (4.50-10.00) X 10*3/uL Hgb 11.7 L (12.0-15.0) g/dL MCH 26.4 L (27.0-32.0) pg MCHC 30.6 L (32.0-37.0) g/dL RDW 15.8 H (11.5-14.5) % Plt Count 496 H (140-440) X 10*3/uL MPV 9.2 L (9.5-12.2) fL Immature Gran # 0.09 H (0.00-0.04) X 10*3/uL Neutrophils # 14.31 H (1.80-7.70) X 10*3/uL Monocytes # 1.16 H (0.20-1.00) X 10*3/uL BUN 75 H (7-17) mg/dL Creatinine 1.39 H (0.52-1.04) mg/dL Glucose 100 H (74-99) mg/dL AST 39 H (14-36) U/L Alkaline Phosphatase 260 H (38-126) U/L Albumin 3.4 L (3.5-5.0) g/dL Assessment and Plan Plan: Recurrent pneumonia was cough and shortness of breath Evidence of dehydration related to nausea vomiting Malnutrition related to previous gastrectomy maintained on TPN Recurrent aspiration pneumonia Previous history of stroke Underlying history of hypothyroidism Underlying history of spinal stenosis with chronic back pain Underlying history of depression with anxiety At this time patient is admitted to medical floor She was started on IV antibiotic Zosyn and Zithromax in the emergency room will continue with same at this time Consultation for pulmonary and infectious disease initiated For DVT prophylaxis patient on subcu heparin
--- NOTE | 2021-12-01 11:41 | P.PN ---
Subjective Progress Note Date: 12/01/21 On 11/22/2021 patient seen in follow-up on medical surgical floor. She is resting comfortably in bed, no signs of any respiratory distress. Breathing comfortably. Room air pulse ox is 90%, she is afebrile, patient is on combination of antibiotics with amikacin, tigecycline, and Primaxin for Mycobacterium abscesses. Remains on nebulized bronchodilators. She is 89 able to bring up any phlegm. Blood cultures have shown no growth. Serum pro calcitonin level is low at 0.15, CRP is 3.0. Today's labs have been noted, potassium is 5.6, sodium is 136, B1 is 41, creatinine is 1.18. Patient remains on TPN for nutritional support in addition to a soft diet vital signs have been stable, she's had no fever while inpatient, blood pressure is been stable, no altered mentation. On 11/23/2021 patient seen in follow-up on medical surgical floor. She is resting in bed, still complains of chest discomfort with deep breathing and coughing along the lower bilateral ribs. Does not appear to be in any acute distress, on room air. Her cough was dry, noncongested. She has not been able to provide a sputum sample, she remains on a combination of antibiotics including tigecycline, Primaxin, and amikacin for mycobacterial pulmonary infection. ID service is following. Vitals have been stable, today's labs have been reviewed, her potassium level has been on the rise, 5.6 on yesterday's labs, and at 6.0 on today's labs, sodium is 133, BUN is 56, creatinine is 1.2. Pro calcitonin level was 0.15. Patient remains on TPN with some oral feedings. We spoke to the pharmacist on duty today, and asked them to review the electrolytes and remove the potassium from the TPN solution. Hyperkalemia will be treated per protocol and BMP will be rechecked. On 11/26/2021 patient seen in follow-up on medical surgical floor. She states she had multiple episodes of vomiting last night. No nausea. She still complains of pain in her rib cage, which is worse since the multiple vomiting episodes. Patient continues on triple antibiotic coverage regarding her Mycobacterium pulmonary infection, with a combination of amikacin, tigecycline, and imipenem. She denies any worsening shortness of breath, other than with exertion, room air pulse ox is 96%, she's been afebrile. Hypertensive today, with a blood pressure 186/100, we'll defer to primary care physician for management of blood pressure. Yesterday's chest x-ray showed stable bilateral areas of consolidation. Today's lab 7 noted, CBC still pending, BMP showed potassium of 5.9, sodium of 138, BUN of 73 and creatinine is 1.35. Serum pro calcitonin level is 0.36, which is worse compared her admission serum pro calcitonin level of 0.15. On 11/27/2021 patient seen in follow-up on medical surgical floor. She denies worsening dyspnea however she has been nauseous, and vomiting, she has been able to eat. She remains on TPN for nutritional support. Her oral mucous membranes are looking dry. She has been taken sips of water. Patient remains on antibiotics with tigecycline, amikacin, and imipenem/cilasttin. Patient has been afebrile, her blood pressure has been running elevated, she remains on room air with pulse ox of 97%. On 11/28/2021 patient is seen in follow-up on medical surgical floor. She states she still not able to keep much down, she has been nauseous and having frequent episodes of vomiting. From pulmonary perspective she still complaining of some pain under the rib cage with deep breathing and coughing, she remains on room air, she does not appear to be in any respiratory distress, she's been afebrile, remains on antibiotics with tigecycline, amikacin, and imipenem/cilasttin. remains on TPN for antibiotic coverage.today's labs reviewed The patient is seen today on 11/29/2021 in follow-up on the regular medical floor. She did have an episode of hypoglycemia following insulin given for hyperkalemia last evening. She is sitting up in bed. Awake and alert in no acute distress. Maintaining good O2 saturations in the 90s on room air. Follow- up computed tomography scan of the pelvis revealed no suspicious changes for obstruction. No plans for surgical intervention. blood cultures revealed no growth. Sodium 138. Potassium 4.7. Bicarb 27. BUN 86. Creatinine 1.47. Glucose 105. She continues to be nourished with TPN and lipids. She is taking oral intake as well. She remains on DuoNeb inhalations, Symbicort, heparin for DVT prophylaxis. She remains on antibiotics in the form of imipenem and amikacin. 11/30/2021 no new complaints and the patient has no significant abdominal pain. She did have small bowel movement that was quite firm and for that reason the patient is currently on a combination of Questran, MiraLAX and mag citrate. No other new complaints otherwise for now. He remains on TPN. She remains the same antibiotic coverage for now. 12/01/2021, no change in the patient's condition. No active GI symptoms for now. No emesis. Receiving TPN. No worsening shortness of breath. The blood work showed a stable creatinine of 1.39 with a BUN of 75 and the sodium level is at 139. Objective - Vital Signs Vital signs: Vital Signs Temp 97.9 F 12/01/21 07:54 Pulse 85 12/01/21 08:25 Resp 18 12/01/21 08:25 BP 162/79 12/01/21 07:54 Pulse Ox 99 12/01/21 07:54 FiO2 Intake & Output 11/30/21 12/01/21 12/01/21 18:59 06:59 18:59 Intake Total 1048 Output Total 1300 700 Balance -252 -700 Intake: Intake, IV Titration 1048 Amount Sodium Chloride 4Meq/ml 1048 Vial 28 meq Sodium Acetate 40 meq Calcium Gluconate 1 gm Mvi, Adult No.4 with Vit K 10 ml Trace (Conc-1Ml/Dose) 1 ml In Amino Acids 5 %/ Dextrose 20 % 1,000 ml @ 50 mls/hr IV .[id number] [facility] Rx#:[id number] Output: Urine 1300 700 Other: Voiding Method Bedside Commode Bedside Commode # Voids 2 # Bowel Movements 1 1 - Exam GENERAL EXAM: Alert, very pleasant, 76-year-old female, frail, cachectic, on room air, appears to be in no acute distress, on room air comfortable in no apparent distress. HEAD: Normocephalic/atraumatic. EYES: Normal reaction of pupils, equal size. Conjunctiva pink, sclera white. NOSE: Clear with pink turbinates. THROAT: No erythema or exudates. NECK: No masses, no JVD, no thyroid enlargement, no adenopathy. CHEST: No chest wall deformity. Symmetrical expansion. LUNGS: Equal air entry with no crackles, wheeze, rhonchi or dullness. CVS: Regular rate and rhythm, normal S1 and S2, no gallops, no murmurs, no rubs ABDOMEN: Soft, nontender. No hepatosplenomegaly, normal bowel sounds, no guarding or rigidity. EXTREMITIES: No clubbing, no edema, no cyanosis, 2+ pulses and upper and lower extremities. MUSCULOSKELETAL: Muscle strength and tone normal. SPINE: No scoliosis or deformity SKIN: No rashes CENTRAL NERVOUS SYSTEM: No focal deficits, tone is normal in all 4 extremities. PSYCHIATRIC: Alert and oriented -3. Appropriate affect. Intact judgment and insight. - Labs CBC & Chem 7: 11/30/21 06:57 12/01/21 07:17 Labs: Abnormal Lab Results - Last 24 Hours (Table) 11/30/21 12/01/21 Range/Units 06:57 07:17 WBC 18.56 H (4.50-10.00) X 10*3/uL Hgb 11.7 L (12.0-15.0) g/dL MCH 26.4 L (27.0-32.0) pg MCHC 30.6 L (32.0-37.0) g/dL RDW 15.8 H (11.5-14.5) % Plt Count 496 H (140-440) X 10*3/uL MPV 9.2 L (9.5-12.2) fL Immature Gran # 0.09 H (0.00-0.04) X 10*3/uL Neutrophils # 14.31 H (1.80-7.70) X 10*3/uL Monocytes # 1.16 H (0.20-1.00) X 10*3/uL BUN 75 H (7-17) mg/dL Creatinine 1.39 H (0.52-1.04) mg/dL Glucose 100 H (74-99) mg/dL AST 39 H (14-36) U/L Alkaline Phosphatase 260 H (38-126) U/L Albumin 3.4 L (3.5-5.0) g/dL Assessment and Plan Plan: #1. Shortness of breath, ilateral rib pain, cough related to recurrent aspiration. COVID-19 PCR, influenza A and B were negative. Chest x-ray showed worsening left perihilar and lower lobe infiltrate, and improving right perihilar infiltrate. 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 BAL culture was sent to the [facility] for identification. ID services on the case, current antibiotics include amikacin, tigecycline, and primaxin #2. Dehydration, related to nausea and vomiting, #3. Chronic pain syndrome, most recently on methadone for pain control #4. Chronic kidney disease stage III at baseline #5. Malnutrition and failure to thrive #6. Recurrent aspiration with multiple hospitalizations, patient is currently o n TPN for nutritional support in addition to some oral feedings on soft diet #6. History of gastrectomy #7. Chronic pain syndrome #8. Previous history of CVA #9. History of hypothyroidism #10. History of spinal stenosis and chronic back pain #11. History of chronic anemia of chronic disease #12. Anxiety/depression #13. Hyperkalemia, related to IV infusion via TPN with electrolytes, the TPN for mail will be adjusted and serum potassium was treated protocol #13, constipation noticeably bowel obstruction Plan: Continue same treatment We'll follow
--- NOTE | 2021-12-01 13:55 | P.PN ---
Subjective Progress Note Date: 12/01/21 Follow-up for acute kidney injury. Feeling better today. Eating lunch. No nausea vomiting diarrhea. Objective - Vital Signs Vital signs: Vital Signs Temp 97.9 F 12/01/21 07:54 Pulse 85 12/01/21 08:25 Resp 18 12/01/21 08:25 BP 162/79 12/01/21 07:54 Pulse Ox 99 12/01/21 07:54 FiO2 Intake & Output 11/30/21 12/01/21 12/01/21 18:59 06:59 18:59 Intake Total 1048 991.667 Output Total 1300 700 Balance -252 -700 991.667 Intake: Intake, IV Titration 1048 991.667 Amount Sodium Chloride 4Meq/ml 1048 991.667 Vial 28 meq Sodium Acetate 40 meq Calcium Gluconate 1 gm Mvi, Adult No.4 with Vit K 10 ml Trace (Conc-1Ml/Dose) 1 ml In Amino Acids 5 %/ Dextrose 20 % 1,000 ml @ 50 mls/hr IV .[id number] [facility] Rx#:[id number] Output: Urine 1300 700 Other: Voiding Method Bedside Commode Bedside Commode Bedside Commode # Voids 2 # Bowel Movements 1 1 - Exam No acute distress S1-S2 heard Lungs clear No edema - Labs CBC & Chem 7: 11/30/21 06:57 12/01/21 07:17 Labs: Abnormal Lab Results - Last 24 Hours (Table) 11/30/21 12/01/21 Range/Units 06:57 07:17 WBC 18.56 H (4.50-10.00) X 10*3/uL Hgb 11.7 L (12.0-15.0) g/dL MCH 26.4 L (27.0-32.0) pg MCHC 30.6 L (32.0-37.0) g/dL RDW 15.8 H (11.5-14.5) % Plt Count 496 H (140-440) X 10*3/uL MPV 9.2 L (9.5-12.2) fL Immature Gran # 0.09 H (0.00-0.04) X 10*3/uL Neutrophils # 14.31 H (1.80-7.70) X 10*3/uL Monocytes # 1.16 H (0.20-1.00) X 10*3/uL BUN 75 H (7-17) mg/dL Creatinine 1.39 H (0.52-1.04) mg/dL Glucose 100 H (74-99) mg/dL AST 39 H (14-36) U/L Alkaline Phosphatase 260 H (38-126) U/L Albumin 3.4 L (3.5-5.0) g/dL Assessment and Plan Assessment: #1 acute kidney injury multifactorial -Aminoglycoside causing acute interstitial nephritis -Progressive chronic kidney disease #2 CK D stage 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 #3 mycobacterial infection on amikacin #4 protein calorie malnutrition #5 hypertension with chronic kidney disease Plan: #1 renal function stable. #2 discussed with infectious disease, considering no sensitivities available no other antibiotic choices to treat her. #3 monitor renal function closely avoid nephrotoxic agents.
[2021-12-01] MEDS: SODIUM CHLORIDE 0.9% 1,000 ML IV SCH ×2 (15:49→21:37)
[2021-12-01] MEDS: FERROUS SULFATE 325 MG TAB PO SCH (15:55)
[2021-12-01] MEDS ORDERED: ONDANSETRON 4 MG/2 ML VIAL IVP STA (18:25)
[2021-12-01] MEDS: ONDANSETRON ODT 4 MG TAB PO PRN (21:25)
[2021-12-01] MEDS: MIRTAZAPINE 45 MG TABLET PO SCH (21:37)
--- NOTE | 2021-12-01 21:53 | P.PN ---
Subjective Progress Note Date: 12/01/21 CHIEF COMPLAINT: Severe protein malnutrition HISTORY OF PRESENT ILLNESS: The patient is a 76-year-old female with severe protein malnutrition including underweight, BMI 15.4. She reports feeling better. Her past history is at bedside. ROS: No fevers or chills. No new chest pain. No productive sputum PHYSICAL EXAM: VITAL SIGNS: Reviewed CONSTITUTIONAL: Well developed and in no acute distress. EYES: Conjuctivae without sclera icterus. Extraocular movements grossly intact. HEAD, EARS, NOSE, THROAT: Moist buccal mucosa. Head is atraumatic, normocephalic. Hears conversational speech. No nasal drainage. RESPIRATORY: Non-labored respirations and equal bilateral excursions. CARDIOVASCULAR: Palpable 2+ radial pulses. ABDOMEN: Scaphoid. No peritonitis. MUSCULOSKELETAL: No gross deformity of the lower extremities noted. No clubbing. No cyanosis. SKIN: Good skin turgor. Well perfused. NEUROLOGIC: Cranial nerves II through XII grossly intact. No focal or lateralizing signs. PSYCH: Appropriate affect. Alert and oriented to person, place and time. CLINICAL LABS: Reviewed. WBC elevated at 18.5 ASSESSMENT: 1. Severe protein malnutrition 2. Underweight 3. Persistent leukocytosis PLAN: 1. Diet as tolerated 2. Continue TPN Objective - Vital Signs Vital signs: Vital Signs Temp 97.9 F 12/01/21 07:54 Pulse 85 12/01/21 08:25 Resp 18 12/01/21 08:25 BP 162/79 12/01/21 07:54 Pulse Ox 99 12/01/21 07:54 FiO2 Intake & Output 11/30/21 12/01/21 12/01/21 18:59 06:59 18:59 Intake Total 1048 991.667 Output Total 1300 700 Balance -252 -700 991.667 Intake: Intake, IV Titration 1048 991.667 Amount Sodium Chloride 4Meq/ml 1048 991.667 Vial 28 meq Sodium Acetate 40 meq Calcium Gluconate 1 gm Mvi, Adult No.4 with Vit K 10 ml Trace (Conc-1Ml/Dose) 1 ml In Amino Acids 5 %/ Dextrose 20 % 1,000 ml @ 50 mls/hr IV .[id number] [facility] Rx#:[id number] Output: Urine 1300 700 Other: Voiding Method Bedside Commode Bedside Commode Bedside Commode # Voids 2 # Bowel Movements 1 1 - Labs CBC & Chem 7: 11/30/21 06:57 12/01/21 07:17 Labs: Abnormal Lab Results - Last 24 Hours (Table) 12/01/21 Range/Units 07:17 BUN 75 H (7-17) mg/dL Creatinine 1.39 H (0.52-1.04) mg/dL Glucose 100 H (74-99) mg/dL AST 39 H (14-36) U/L Alkaline Phosphatase 260 H (38-126) U/L Albumin 3.4 L (3.5-5.0) g/dL
[2021-12-02] MEDS: IMIPENEM CILASTATIN IVPB SCH ×2 (02:04→16:05)
[2021-12-02] MEDS: SODIUM CHLORIDE 0.9% IVPB SCH ×3 (02:04→16:05)
[2021-12-02] MEDS: HYDROmorphone 0.5 MG/0.5 ML SYRINGE IVP PRN ×5 (04:46→21:42)
[2021-12-02] MEDS: BUTALB/APAP/CAFF 50-325-40MG TAB PO PRN ×3 (04:51→17:48)
[2021-12-02] MEDS: AMIKACIN SULFATE IVPB SCH (05:37)
[2021-12-02] MEDS: CALCIUM GLUCONATE IV SCH ×6 (05:37)
[2021-12-02] MEDS: SODIUM ACETATE IV SCH ×6 (05:37)
[2021-12-02] MEDS: [UNRECOGNIZED DRUG - OTHER] IV SCH ×6 (05:37)
[2021-12-02] MEDS: LEVOTHYROXINE 100 MCG TAB PO SCH (05:37)
[2021-12-02] MEDS: SODIUM CHLORIDE IV SCH ×6 (05:37)
[2021-12-02 06:38] LABS: ALT 27 U/L (4-34); AST 37 U/L (14-36); African American GFR (CKD) 48 (>60 ml/min/1.73 sqM); Albumin 3.3 g/dL (3.5-5.0); Albumin/Globulin Ratio 1.1; Alkaline Phosphatase 266 U/L (38-126); Anion Gap 10 mmol/L; Blood Urea Nitrogen 70 mg/dL (7-17); Calcium 8.7 mg/dL (8.4-10.2); Carbon Dioxide 29 mmol/L (22-30); Chloride 101 mmol/L (98-107); Glucose 99 mg/dL (74-99); Magnesium 1.9 mg/dL (1.6-2.3); Non-African American GFR(CKD) 42 (>60 ml/min/1.73 sqM); Phosphorus 2.8 mg/dL (2.5-4.5); Potassium 4.4 mmol/L (3.5-5.1); Sodium 140 mmol/L (137-145); Total Bilirubin 0.3 mg/dL (0.2-1.3); Total Protein 6.3 g/dL (6.3-8.2)
--- NOTE | 2021-12-02 08:03 | P.PN ---
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 On today's evaluation that is 12/01/2021, the patient remains to be afebrile, the patient is breathing comfortably on room air, patient denies chest pain , the patient denies any worsening cough or sputum production, , the patient denies having any nausea seemed to be feeling better and abdominal pain has decreased in intensity Objective - Vital Signs Vital signs: Vital Signs Temp 97.9 F 12/01/21 07:54 Pulse 85 12/01/21 08:25 Resp 18 12/01/21 08:25 BP 162/79 12/01/21 07:54 Pulse Ox 99 12/01/21 07:54 FiO2 Intake & Output 11/30/21 12/01/21 12/01/21 18:59 06:59 18:59 Intake Total 1048 991.667 Output Total 1300 700 Balance -252 -700 991.667 Intake: Intake, IV Titration 1048 991.667 Amount Sodium Chloride 4Meq/ml 1048 991.667 Vial 28 meq Sodium Acetate 40 meq Calcium Gluconate 1 gm Mvi, Adult No.4 with Vit K 10 ml Trace (Conc-1Ml/Dose) 1 ml In Amino Acids 5 %/ Dextrose 20 % 1,000 ml @ 50 mls/hr IV .[id number] [facility] Rx#:[id number] Output: Urine 1300 700 Other: Voiding Method Bedside Commode Bedside Commode Bedside Commode # Voids 2 # Bowel Movements 1 1 - Exam GENERAL DESCRIPTION: An elderly female lying in bed in no distress RESPIRATORY SYSTEM: Unlabored breathing , decreased breath sounds at bases HEART: S1 S2 regular rate and rhythm , ABDOMEN: Soft , no tenderness EXTREMITIES: No edema feet - Labs CBC & Chem 7: 11/30/21 06:57 12/02/21 05:42 Labs: Abnormal Lab Results - Last 24 Hours (Table) 12/01/21 Range/Units 07:17 BUN 75 H (7-17) mg/dL Creatinine 1.39 H (0.52-1.04) mg/dL Glucose 100 H (74-99) mg/dL AST 39 H (14-36) U/L Alkaline Phosphatase 260 H (38-126) U/L Albumin 3.4 L (3.5-5.0) g/dL Assessment and Plan (1) Pneumonia Current Visit: Yes Status: Acute Code(s): J18.9 - PNEUMONIA, UNSPECIFIED ORGANISM SNOMED Code(s): 254706885 Plan: 1-patient presented to hospital with shortness of breath and cough in this patient did have evidence of cavitating pneumonia on the chest x-ray with recent bronchoscopy culture positive for Mycobacterium abscessus likely the etiology, sensitivities are currently pending 2-patient did have a chest CT on 11/19/2021 with evidence of increase in size and number of cavitating lesion concerning for necrotizing pneumonia 3patient is currently being treated amikacin pharmacy to dose along with with imipenem and tigecycline, kidney function is monitored closely with a creatinine has slightly trending down, repeat blood cultures are currently pending Time with Patient: Less than 30
[2021-12-02] MEDS: hydrOXYzine pamoate 25 MG CAP PO SCH ×3 (08:17→21:07)
[2021-12-02] MEDS: polyethylene glycoL 3350 17 GM POWD.PACK PO SCH (08:17)
[2021-12-02] MEDS: METHADONE 10 MG TAB PO SCH ×2 (08:18→21:08)
[2021-12-02] MEDS: busPIRone HCl 10 MG TAB PO SCH ×2 (08:18→21:06)
[2021-12-02] MEDS: HEPARIN SODIUM,PORCINE/PF 5,000 UNIT/0.5 ML SYRINGE SQ SCH ×2 (08:19→21:08)
[2021-12-02] MEDS: PANTOPRAZOLE 40 MG TABLET PO SCH (08:19)
[2021-12-02] MEDS: guaiFENesin 600 MG TABLET.ER PO SCH ×2 (08:19→21:07)
[2021-12-02] MEDS: ASPIRIN 81 MG PO SCH (08:19)
[2021-12-02] MEDS: PARoxetine 10 MG TAB PO SCH (08:19)
[2021-12-02] MEDS: SODIUM BICARBONATE TAB 650 MG TAB PO SCH (08:19)
[2021-12-02] MEDS: LORATADINE 10 MG TAB PO SCH (08:19)
[2021-12-02] MEDS: buPROPion XL 300 MG TAB.ER.24H PO SCH (08:19)
[2021-12-02] MEDS: IPRATROPIUM-ALBUTEROL 3 ML NEB INHALATION SCH ×4 (08:46→19:20)
[2021-12-02] MEDS: SYMBICORT 160-4.5 MCG INHALER INHALATION SCH ×2 (08:46→19:20)
[2021-12-02 09:30] LABS: Basophils # (A) 0.08 X 10*3/uL (0.00-0.10); Basophils % (A) 0.4 %; Eosinophils # (A) 0.21 X 10*3/uL (0.04-0.35); Eosinophils % (A) 1.1 %; HCT 35.3 % (37.2-46.3); HGB 11.2 g/dL (12.0-15.0); Immature Grans, Automated 0.4 %; Lymphocytes # (A) 3.12 X 10*3/uL (0.90-5.00); Lymphocytes % (A) 16.3 %; MCH 26.7 pg (27.0-32.0); MCHC 31.7 g/dL (32.0-37.0); Mean Platelet Volume 9.9 fL (9.5-12.2); Monocytes # (A) 1.34 X 10*3/uL (0.20-1.00); NRBC Per 100 WBC 0 /100 WBCS (0.0-0.0); Neutrophils # (A) 14.37 X 10*3/uL (1.80-7.70); Neutrophils % (A) 74.8 %; Platelet Count 400 X 10*3/uL (140-440); RDW 15.6 % (11.5-14.5)
[2021-12-02] MEDS: TIGECYCLINE 50 MG in SODIUM CHLORIDE 0.9% 100 ML IVPB SCH ×2 (09:45→21:08)
[2021-12-02] MEDS: CHOLESTYRAMINE (WITH SUGAR) 4 GM PACKET PO SCH ×2 (09:46→17:47)
[2021-12-02] MEDS: ONDANSETRON ODT 4 MG TAB PO PRN ×2 (11:44→21:07)
--- NOTE | 2021-12-02 12:21 | P.PN ---
Subjective Patient is seen for follow-up for chronic kidney disease Renal function is fairly stable No significant complaints today Maintained on TPN Objective - Vital Signs Vital signs: Vital Signs Temp 97.9 F 12/02/21 07:32 Pulse 83 12/02/21 07:32 Resp 16 12/02/21 07:32 BP 149/84 12/02/21 07:32 Pulse Ox 100 12/02/21 07:32 FiO2 Intake & Output 12/01/21 12/02/21 12/02/21 18:59 06:59 18:59 Intake Total 201.329 9297.833 Output Total 800 Balance 090.839 6411.833 Intake: IV 600 Sodium Chloride 4Meq/ml 600 Vial 28 meq Sodium Acetate 40 meq Calcium Gluconate 1 gm Mvi, Adult No.4 with Vit K 10 ml Trace (Conc-1Ml/Dose) 1 ml In Amino Acids 5 %/ Dextrose 20 % 1,000 ml @ 50 mls/hr IV .[id number] [facility] Rx#:[id number] Intake, IV Titration 991.667 955.833 Amount Sodium Chloride 4Meq/ml 991.667 955.833 Vial 28 meq Sodium Acetate 40 meq Calcium Gluconate 1 gm Mvi, Adult No.4 with Vit K 10 ml Trace (Conc-1Ml/Dose) 1 ml In Amino Acids 5 %/ Dextrose 20 % 1,000 ml @ 50 mls/hr IV .[id number] [facility] Rx#:[id number] Output: Urine 800 Other: Voiding Method Bedside Commode Bedside Commode # Voids 2 # Bowel Movements 1 1 - Exam Patient is awake, comfortable, not in any acute distress. Patient is cachectic Examination of the heart S1 and S2 Examination lungs bilateral breath sounds are heard Abdomen is soft nontender [employer] exam grossly intact Examination lower extremity shows no evidence of edema - Labs CBC & Chem 7: 12/02/21 05:42 12/02/21 05:42 Labs: Abnormal Lab Results - Last 24 Hours (Table) 12/02/21 12/02/21 Range/Units 05:42 05:42 WBC 19.20 H (4.50-10.00) X 10*3/uL Hgb 11.2 L (12.0-15.0) g/dL Hct 35.3 L (37.2-46.3) % MCH 26.7 L (27.0-32.0) pg MCHC 31.7 L (32.0-37.0) g/dL RDW 15.6 H (11.5-14.5) % Immature Gran # 0.08 H (0.00-0.04) X 10*3/uL Neutrophils # 14.37 H (1.80-7.70) X 10*3/uL Monocytes # 1.34 H (0.20-1.00) X 10*3/uL BUN 70 H (7-17) mg/dL Creatinine 1.26 H (0.52-1.04) mg/dL AST 37 H (14-36) U/L Alkaline Phosphatase 266 H (38-126) U/L Albumin 3.3 L (3.5-5.0) g/dL Assessment and Plan Assessment: 1. 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 Protein calorie malnutrition maintained on TPN 4. Hypertension with CK D 5. Acute kidney injury prerenal currently improved Plan: Continue antibiotics as per ID Continue to encourage increased oral intake. Avoid nephrotoxic agents
--- NOTE | 2021-12-02 13:13 | P.PN ---
Subjective Progress Note Date: 12/02/21 On 11/22/2021 patient seen in follow-up on medical surgical floor. She is resting comfortably in bed, no signs of any respiratory distress. Breathing comfortably. Room air pulse ox is 90%, she is afebrile, patient is on combination of antibiotics with amikacin, tigecycline, and Primaxin for Mycobacterium abscesses. Remains on nebulized bronchodilators. She is 89 able to bring up any phlegm. Blood cultures have shown no growth. Serum pro calcitonin level is low at 0.15, CRP is 3.0. Today's labs have been noted, potassium is 5.6, sodium is 136, B1 is 41, creatinine is 1.18. Patient remains on TPN for nutritional support in addition to a soft diet vital signs have been stable, she's had no fever while inpatient, blood pressure is been stable, no altered mentation. On 11/23/2021 patient seen in follow-up on medical surgical floor. She is resting in bed, still complains of chest discomfort with deep breathing and coughing along the lower bilateral ribs. Does not appear to be in any acute distress, on room air. Her cough was dry, noncongested. She has not been able to provide a sputum sample, she remains on a combination of antibiotics including tigecycline, Primaxin, and amikacin for mycobacterial pulmonary infection. ID service is following. Vitals have been stable, today's labs have been reviewed, her potassium level has been on the rise, 5.6 on yesterday's labs, and at 6.0 on today's labs, sodium is 133, BUN is 56, creatinine is 1.2. Pro calcitonin level was 0.15. Patient remains on TPN with some oral feedings. We spoke to the pharmacist on duty today, and asked them to review the electrolytes and remove the potassium from the TPN solution. Hyperkalemia will be treated per protocol and BMP will be rechecked. On 11/26/2021 patient seen in follow-up on medical surgical floor. She states she had multiple episodes of vomiting last night. No nausea. She still complains of pain in her rib cage, which is worse since the multiple vomiting episodes. Patient continues on triple antibiotic coverage regarding her Mycobacterium pulmonary infection, with a combination of amikacin, tigecycline, and imipenem. She denies any worsening shortness of breath, other than with exertion, room air pulse ox is 96%, she's been afebrile. Hypertensive today, with a blood pressure 186/100, we'll defer to primary care physician for management of blood pressure. Yesterday's chest x-ray showed stable bilateral areas of consolidation. Today's lab 7 noted, CBC still pending, BMP showed potassium of 5.9, sodium of 138, BUN of 73 and creatinine is 1.35. Serum pro calcitonin level is 0.36, which is worse compared her admission serum pro calcitonin level of 0.15. On 11/27/2021 patient seen in follow-up on medical surgical floor. She denies worsening dyspnea however she has been nauseous, and vomiting, she has been able to eat. She remains on TPN for nutritional support. Her oral mucous membranes are looking dry. She has been taken sips of water. Patient remains on antibiotics with tigecycline, amikacin, and imipenem/cilasttin. Patient has been afebrile, her blood pressure has been running elevated, she remains on room air with pulse ox of 97%. On 11/28/2021 patient is seen in follow-up on medical surgical floor. She states she still not able to keep much down, she has been nauseous and having frequent episodes of vomiting. From pulmonary perspective she still complaining of some pain under the rib cage with deep breathing and coughing, she remains on room air, she does not appear to be in any respiratory distress, she's been afebrile, remains on antibiotics with tigecycline, amikacin, and imipenem/cilasttin. remains on TPN for antibiotic coverage.today's labs reviewed The patient is seen today on 09/29/2021 in follow-up on the regular medical floor. She did have an episode of hypoglycemia following insulin given for hyperkalemia last evening. She is sitting up in bed. Awake and alert in no acute distress. Maintaining good O2 saturations in the 90s on room air. Follow- up computed tomography scan of the pelvis revealed no suspicious changes for obstruction. No plans for surgical intervention. blood cultures revealed no growth. Sodium 138. Potassium 4.7. Bicarb 27. BUN 86. Creatinine 1.47. Glucose 105. She continues to be nourished with TPN and lipids. She is taking oral intake as well. She remains on DuoNeb inhalations, Symbicort, heparin for DVT prophylaxis. She remains on antibiotics in the form of imipenem and amikacin. 11/30/2021 no new complaints and the patient has no significant abdominal pain. She did have small bowel movement that was quite firm and for that reason the patient is currently on a combination of Questran, MiraLAX and mag citrate. No other new complaints otherwise for now. He remains on TPN. She remains the same antibiotic coverage for now. 12/01/2021, no change in the patient's condition. No active GI symptoms for now. No emesis. Receiving TPN. No worsening shortness of breath. The blood work showed a stable creatinine of 1.39 with a BUN of 75 and the sodium level is at 139. The patient is seen today 12/02/2021 in follow-up on the regular medical floor. She is currently resting comfortably in bed. Awake and alert in no acute distress. She is being nourished with TPN at 75 ML's per hour. She was found to have Mycobacterium abscessus from previous bronchoscopy 10/09/2021. She remains on Tigecycline and Amikacin per ID services. Continue on Symbicort and DuoNeb inhalations. Maintaining good O2 saturations in the high 90s on room air. She's afebrile. Hemodynamically stable. White count 19.2. Hemoglobin 11.2. Sodium 140. Potassium 4.4. BUN 70. Creatinine 1.26. Objective - Vital Signs Vital signs: Vital Signs Temp 97.9 F 12/02/21 07:32 Pulse 83 12/02/21 07:32 Resp 16 12/02/21 07:32 BP 149/84 12/02/21 07:32 Pulse Ox 100 12/02/21 07:32 FiO2 Intake & Output 12/01/21 12/02/21 12/02/21 18:59 06:59 18:59 Intake Total 322.016 8366.833 Output Total 800 Balance 459.771 6145.833 Intake: IV 600 Sodium Chloride 4Meq/ml 600 Vial 28 meq Sodium Acetate 40 meq Calcium Gluconate 1 gm Mvi, Adult No.4 with Vit K 10 ml Trace (Conc-1Ml/Dose) 1 ml In Amino Acids 5 %/ Dextrose 20 % 1,000 ml @ 50 mls/hr IV .[id number] [facility] Rx#:[id number] Intake, IV Titration 991.667 955.833 Amount Sodium Chloride 4Meq/ml 991.667 955.833 Vial 28 meq Sodium Acetate 40 meq Calcium Gluconate 1 gm Mvi, Adult No.4 with Vit K 10 ml Trace (Conc-1Ml/Dose) 1 ml In Amino Acids 5 %/ Dextrose 20 % 1,000 ml @ 50 mls/hr IV .[id number] [facility] Rx#:[id number] Output: Urine 800 Other: Voiding Method Bedside Commode Bedside Commode # Voids 2 # Bowel Movements 1 1 - Exam GENERAL EXAM: Alert, very pleasant, 76-year-old female, frail, cachectic, on room air, appears to be in no acute distress. HEAD: Normocephalic/atraumatic. EYES: Normal reaction of pupils, equal size. Conjunctiva pink, sclera white. NOSE: Clear with pink turbinates. THROAT: No erythema or exudates. NECK: No masses, no JVD, no thyroid enlargement, no adenopathy. CHEST: No chest wall deformity. Symmetrical expansion. LUNGS: Equal air entry with no crackles, wheeze, rhonchi or dullness. CVS: Regular rate and rhythm, normal S1 and S2, no gallops, no murmurs, no rubs ABDOMEN: Soft, nontender. No hepatosplenomegaly, normal bowel sounds, no guarding or rigidity. EXTREMITIES: No clubbing, no edema, no cyanosis, 2+ pulses and upper and lower extremities. MUSCULOSKELETAL: Muscle strength and tone normal. SPINE: No scoliosis or deformity SKIN: No rashes CENTRAL NERVOUS SYSTEM: No focal deficits, tone is normal in all 4 extremities. PSYCHIATRIC: Alert and oriented -3. Appropriate affect. Intact judgment and insight. - Labs CBC & Chem 7: 12/02/21 05:42 12/02/21 05:42 Labs: Abnormal Lab Results - Last 24 Hours (Table) 12/02/21 12/02/21 Range/Units 05:42 05:42 WBC 19.20 H (4.50-10.00) X 10*3/uL Hgb 11.2 L (12.0-15.0) g/dL Hct 35.3 L (37.2-46.3) % MCH 26.7 L (27.0-32.0) pg MCHC 31.7 L (32.0-37.0) g/dL RDW 15.6 H (11.5-14.5) % Immature Gran # 0.08 H (0.00-0.04) X 10*3/uL Neutrophils # 14.37 H (1.80-7.70) X 10*3/uL Monocytes # 1.34 H (0.20-1.00) X 10*3/uL BUN 70 H (7-17) mg/dL Creatinine 1.26 H (0.52-1.04) mg/dL AST 37 H (14-36) U/L Alkaline Phosphatase 266 H (38-126) U/L Albumin 3.3 L (3.5-5.0) g/dL Microbiology - Last 24 Hours (Table) 12/01/21 10:44 Blood Culture - Preliminary Blood No Growth after 24 hours 12/01/21 10:44 Blood Culture - Preliminary Blood No Growth after 24 hours Assessment and Plan Assessment: Shortness of breath, bilateral rib pain, cough related to recurrent aspiration. COVID-19 PCR, influenza A and B were negative. Chest x-ray showed worsening left perihilar and lower lobe infiltrate, and improving right perihilar infiltrate. 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 BAL culture was sent to the [place] [facility] for identification. ID services on the case, current antibiotics include amikacin and Tigecycline Dehydration, related to nausea and vomiting, Chronic pain syndrome, most recently on methadone for pain control Chronic kidney disease stage III at baseline Malnutrition and failure to thrive Recurrent aspiration with multiple hospitalizations, patient is currently on TPN for nutritional support in addition to some oral feedings on soft diet History of gastrectomy Chronic pain syndrome Previous history of CVA History of hypothyroidism History of spinal stenosis and chronic back pain History of chronic anemia of chronic disease Anxiety/depression Hyperkalemia, related to IV infusion via TPN with electrolytes, the TPN for mail will be adjusted and serum potassium was treated protocol Plan: The patient was seen and evaluated Labs and medications reviewed Currently stable and on room air We will see on an as-needed basis I have personally seen and examined the patient, performed the documentation and the assessment and plan as written. Number of minutes spent on the visit: 10.
--- NOTE | 2021-12-02 13:49 | P.PN ---
Subjective Progress Note Date: 12/02/21 CHIEF COMPLAINT: Small bowel obstructive versus ileus HISTORY OF PRESENT ILLNESS: Patient does complain of abdominal pain. She did have an episode of vomiting last night. She reports nausea. She has been having diarrhea. She is currently on a low fiber diet. Afebrile. WBC is up from 18-19 PHYSICAL EXAM: VITAL SIGNS: Reviewed GENERAL: Well-developed in no acute distress. HEENT: No sclera icterus. Extraocular movements grossly intact. Moist buccal mucosa. Head is atraumatic, normocephalic. Hears conversational speech. No nasal drainage. NECK: Supple without lymphadenopathy. CHEST: Non-labored respirations and equal bilateral excursions. CARDIOVASCULAR: Palpable 2+ radial pulses. ABDOMEN: Soft. Nondistended. Diffuse tenderness MUSCULOSKELETAL: No clubbing or cyanosis. NEUROLOGIC: No focal or lateralizing signs. Cranial nerves II through XII grossly intact. PSYCH: Appropriate affect. Alert and oriented to person, place and time. SKIN: Well perfused. Good skin turgor. ASSESSMENT: 1. Ileus versus partial small bowel obstruction 2. Leukocytosis 3. Severe protein calorie malnutrition 4. History of esophageal dysmotility PLAN: -Due to patient's vomiting downgrade diet to clear liquids -Check abdominal x-ray -Continue TPN for nutrition support -Continue supportive care Physician Fisheries Technical Officer note has been reviewed by physician. Signing provider agrees with the documented findings, assessment, and plan of care. Objective - Vital Signs Vital signs: Vital Signs Temp 97.9 F 12/02/21 07:32 Pulse 83 12/02/21 07:32 Resp 16 12/02/21 07:32 BP 149/84 12/02/21 07:32 Pulse Ox 100 12/02/21 07:32 FiO2 Intake & Output 12/01/21 12/02/21 12/02/21 18:59 06:59 18:59 Intake Total 091.004 8487.833 Output Total 800 Balance 279.016 0189.833 Weight 38.102 kg Intake: IV 600 Sodium Chloride 4Meq/ml 600 Vial 28 meq Sodium Acetate 40 meq Calcium Gluconate 1 gm Mvi, Adult No.4 with Vit K 10 ml Trace (Conc-1Ml/Dose) 1 ml In Amino Acids 5 %/ Dextrose 20 % 1,000 ml @ 50 mls/hr IV .[id number] [facility] Rx#:[id number] Intake, IV Titration 991.667 955.833 Amount Sodium Chloride 4Meq/ml 991.667 955.833 Vial 28 meq Sodium Acetate 40 meq Calcium Gluconate 1 gm Mvi, Adult No.4 with Vit K 10 ml Trace (Conc-1Ml/Dose) 1 ml In Amino Acids 5 %/ Dextrose 20 % 1,000 ml @ 50 mls/hr IV .[id number] [facility] Rx#:[id number] Output: Urine 800 Other: Voiding Method Bedside Commode Bedside Commode # Voids 2 # Bowel Movements 1 1 - Labs CBC & Chem 7: 12/02/21 05:42 12/02/21 05:42 Labs: Abnormal Lab Results - Last 24 Hours (Table) 12/02/21 12/02/21 Range/Units 05:42 05:42 WBC 19.20 H (4.50-10.00) X 10*3/uL Hgb 11.2 L (12.0-15.0) g/dL Hct 35.3 L (37.2-46.3) % MCH 26.7 L (27.0-32.0) pg MCHC 31.7 L (32.0-37.0) g/dL RDW 15.6 H (11.5-14.5) % Immature Gran # 0.08 H (0.00-0.04) X 10*3/uL Neutrophils # 14.37 H (1.80-7.70) X 10*3/uL Monocytes # 1.34 H (0.20-1.00) X 10*3/uL BUN 70 H (7-17) mg/dL Creatinine 1.26 H (0.52-1.04) mg/dL AST 37 H (14-36) U/L Alkaline Phosphatase 266 H (38-126) U/L Albumin 3.3 L (3.5-5.0) g/dL Microbiology - Last 24 Hours (Table) 12/01/21 10:44 Blood Culture - Preliminary Blood No Growth after 24 hours 12/01/21 10:44 Blood Culture - Preliminary Blood No Growth after 24 hours
--- NOTE | 2021-12-02 13:52 | XR ---
EXAMINATION TYPE: XR abdomen 2V DATE OF EXAM: 12/02/2021 COMPARISON: Abdominal radiograph 11/28/2021 INDICATION: Abdominal pain TECHNIQUE: Upright and supine views of the abdomen were obtained. FINDINGS: No acute osseous abnormality. Nonspecific bowel gas pattern with residual contrast demonstrated throu ghout the small bowel and colon. No evidence for obstruction. Post surgical changes in the epigastric and left hip and vertebral column. IMPRESSION: Nonobstructive bowel gas pattern with enteric contrast demonstrated throughout the small and large bianca wel.
--- NOTE | 2021-12-02 15:25 | P.PN ---
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 Gregorio infectious disease. She was started on IV antibiotic in the emergency room, will continue with same at this time will resume TPN, consultation for pulmonary and infectious disease were initiated On 11/19/2021 patient was seen and examined on the medical floor she is alert an d oriented 3 in no apparent distress she is complaining of abdominal cramping and diarrhea she is still complaining of cough and shortness of breath otherwise she denies any complaints there is no fever or chills no headache or dizziness no chest pain no nausea or vomiting, no blood in the stools no burning with urination no frequency or urgency and no hematuria. At this time will send a stool sample for C. diff will continue was current management otherwise. On 11/20/2021 patient was seen and examined on the medical floor she is alert and oriented in no distress, she is still complaining of cough and shortness of breath otherwise she denies any complaints there is no fever or chills no h eadache or dizziness no chest pain no nausea or vomiting no abdominal pain no blood in the stools no burning with urination no frequency or urgency no hematuria, patient still complaining of some diarrhea .Will check stools for C. diff On 11/21/2021 patient was seen and examined on the medical floor she is alert and oriented in no distress, she is still complaining of cough and shortness of breath otherwise she denies any complaints there is no fever or chills no headache or dizziness no chest pain no nausea or vomiting no abdominal pain no blood in the stools no burning with urination no frequency or urgency no hematuria, patient still complaining of some diarrhea. On 11/22/2021 patient was seen and examined on the medical floor she is alert and oriented 3 in no apparent distress she is complaining of abdominal pain and cramping otherwise she denies any complaints at this time there is no fever or chills no headache or dizziness no chest pain no shortness of breath no cough no nausea or vomiting no blood in the stools no burning with urination frequency or urgency and no hematuria On 11/23/2021 patient was seen and examined on the medical floor she is alert and oriented 3 in no distress she is still complaining of abdominal discomfort but states has improved since yesterday otherwise she denies any complaints there is no fever or chills no headache or dizziness no chest pain no shortness of breath no cough no nausea or vomiting no diarrhea no blood in the stools no burning with urination no frequency or urgency and no hematuria. Abdomen x-ray and abdomen ultrasound reviewed no acute abnormality of the abdomen. On 11/24/2021 patient was seen and examined on the medical floor she is alert and oriented 3 in no apparent distress there is no fever or chills no headache or dizziness no chest pain no shortness of breath no cough no nausea or vomiting no abdominal pain no diarrhea no blood in the stools no burning with urination no frequency or urgency and no hematuria. Abdominal discomfort has improved medication and labs were reviewed continue with current regimen will follow in a.m. On 11/25/2021 patient was seen and examined on the medical floor she is alert and oriented 3 in no distress she is complaining of shortness of breath with activity her abdominal discomfort has improved there is no fever or chills no headache or dizziness no chest pain no nausea or vomiting no abdominal pain no diarrhea no blood in the stools no burning with urination no frequency or urgency and no hematuria On 11/26/2021 patient is alert and oriented in no distress she is complaining of shortness of breath with activity she is complaining of episodes of vomiting oth erwise she denies any complaints there is no fever or chills no headache or dizziness no chest pain no shortness of breath no cough, no abdominal pain no diarrhea no blood in the stools no burning with urination no frequency or urgency and no hematuria. On 11/27/2021 patient was seen and examined on the medical floor she is alert and oriented 3 in no apparent distress she is still complaining of abdominal discomfort and vomiting otherwise she denies any complaints there is no fever or chills no headache or dizziness no chest pain no shortness of breath no cough no urinary symptoms. At this time will check computed tomography scan of the abdomen and pelvis with oral contrast, Will consult Dr. auguste for evaluation of abdominal pain and vomiting On 11/28/2021 patient was seen and examined on the medical floor she is alert and oriented 3 in no apparent distress she is still complaining of abdominal discomfort and vomiting otherwise she denies any complaints there is no fever or chills no headache or dizziness no chest pain no shortness of breath no cough no urinary symptoms. patient has evidence of small bowel obstruction, Dr Guadalupe following On 11/29/2021 patient was seen and examined on the medical floor she is alert and oriented 3 in no apparent distress there is no fever or chills no headache or dizziness no chest pain no shortness of breath she has occasional cough there is no nausea or vomiting she has mild abdominal discomfort no diarrhea no blood in the stools no burning with urination no frequency or urgency and no hematuria. Repeat computed tomography scan of the abdomen and pelvis, reveals improvement no surgical intervention is recommended at this time, continue with current medication will follow in a.m.. On 11/30/2021 patient was seen and examined on the medical floor she is alert and oriented 3 in no apparent distress she is complaining of generalized fatigue and nausea she is complaining of shortness of breath with activity otherwise she denies any complaints there is no fever or chills no headache or dizziness no chest pain no shortness of breath no cough no vomiting no abdominal pain no diarrhea and no urinary symptoms On 12/01/2021 patient was seen and examined on the medical floor she is alert and oriented 3 she is still complaining of generalized weakness otherwise she denies any complaints there is no fever or chills no headache or dizziness no chest pain no shortness of breath she has occasional cough no nausea or vomiting no abdominal pain no diarrhea and no urinary symptoms. On 12/02/2021 patient was seen and examined on the medical floor she is alert and oriented in no distress there is no fever or chills no headache or dizziness no chest pain no shortness of breath no cough she has some nausea this morning no vomiting no abdominal pain no diarrhea and no blood in the stools no burning with urination no frequency or urgency and no hematuria Objective - Vital Signs Vital signs: Vital Signs Temp 97.9 F 12/02/21 07:32 Pulse 83 12/02/21 07:32 Resp 16 12/02/21 07:32 BP 149/84 12/02/21 07:32 Pulse Ox 100 12/02/21 07:32 FiO2 Intake & Output 12/01/21 12/02/21 12/02/21 18:59 06:59 18:59 Intake Total 109.998 8005.833 Output Total 800 Balance 011.144 5063.833 Weight 38.102 kg Intake: IV 600 Sodium Chloride 4Meq/ml 600 Vial 28 meq Sodium Acetate 40 meq Calcium Gluconate 1 gm Mvi, Adult No.4 with Vit K 10 ml Trace (Conc-1Ml/Dose) 1 ml In Amino Acids 5 %/ Dextrose 20 % 1,000 ml @ 50 mls/hr IV .[id number] [facility] Rx#:[id number] Intake, IV Titration 991.667 955.833 Amount Sodium Chloride 4Meq/ml 991.667 955.833 Vial 28 meq Sodium Acetate 40 meq Calcium Gluconate 1 gm Mvi, Adult No.4 with Vit K 10 ml Trace (Conc-1Ml/Dose) 1 ml In Amino Acids 5 %/ Dextrose 20 % 1,000 ml @ 50 mls/hr IV .[id number] [facility] Rx#:[id number] Output: Urine 800 Other: Voiding Method Bedside Commode Bedside Commode # Voids 2 # Bowel Movements 1 1 - Exam In general patient is alert and oriented x 3 in no distress HEENT head normocephalic and atraumatic Neck is supple no JVD no goiter no lymphadenopathy no carotid bruit Chest examination reveals a scattered crackles in both lung calixto no wheezing Cardiac exam reveals regular heart sounds S1 and S2 no gallops no murmurs Abdomen is soft nontender no organomegaly with normal bowel sounds Extremity exam reveals no edema no cyanosis or clubbing Neurological examination reveals no gross focal deficits - Labs CBC & Chem 7: 12/02/21 05:42 12/02/21 05:42 Labs: Abnormal Lab Results - Last 24 Hours (Table) 12/02/21 12/02/21 Range/Units 05:42 05:42 WBC 19.20 H (4.50-10.00) X 10*3/uL Hgb 11.2 L (12.0-15.0) g/dL Hct 35.3 L (37.2-46.3) % MCH 26.7 L (27.0-32.0) pg MCHC 31.7 L (32.0-37.0) g/dL RDW 15.6 H (11.5-14.5) % Immature Gran # 0.08 H (0.00-0.04) X 10*3/uL Neutrophils # 14.37 H (1.80-7.70) X 10*3/uL Monocytes # 1.34 H (0.20-1.00) X 10*3/uL BUN 70 H (7-17) mg/dL Creatinine 1.26 H (0.52-1.04) mg/dL AST 37 H (14-36) U/L Alkaline Phosphatase 266 H (38-126) U/L Albumin 3.3 L (3.5-5.0) g/dL Microbiology - Last 24 Hours (Table) 12/01/21 10:44 Blood Culture - Preliminary Blood No Growth after 24 hours 12/01/21 10:44 Blood Culture - Preliminary Blood No Growth after 24 hours Assessment and Plan Plan: Recurrent pneumonia was cough and shortness of breath Evidence of dehydration related to nausea vomiting Malnutrition related to previous gastrectomy maintained on TPN Recurrent aspiration pneumonia Previous history of stroke Underlying history of hypothyroidism Underlying history of spinal stenosis with chronic back pain Underlying history of depression with anxiety At this time patient is admitted to medical floor She was started on IV antibiotic Zosyn and Zithromax in the emergency room will continue with same at this time Consultation for pulmonary and infectious disease initiated For DVT prophylaxis patient on subcu heparin
[2021-12-02] MEDS: FERROUS SULFATE 325 MG TAB PO SCH (17:29)
[2021-12-02] MEDS: MIRTAZAPINE 45 MG TABLET PO SCH (21:06)
[2021-12-03] MEDS: HYDROmorphone 0.5 MG/0.5 ML SYRINGE IVP PRN ×4 (02:13→22:00)
[2021-12-03] MEDS: SODIUM CHLORIDE 0.9% IVPB SCH ×2 (02:56→17:42)
[2021-12-03] MEDS: IMIPENEM CILASTATIN IVPB SCH ×2 (02:56→17:42)
[2021-12-03] MEDS: SODIUM PHOSPHATE IV SCH ×16 (04:14→22:47)
[2021-12-03] MEDS: [UNRECOGNIZED DRUG - OTHER] IV SCH ×16 (04:14→22:47)
[2021-12-03] MEDS: SODIUM CHLORIDE IV SCH ×16 (04:14→22:47)
[2021-12-03] MEDS: SODIUM ACETATE IV SCH ×16 (04:14→22:47)
[2021-12-03] MEDS: BUTALB/APAP/CAFF 50-325-40MG TAB PO PRN ×3 (05:51→18:25)
[2021-12-03] MEDS: LEVOTHYROXINE 100 MCG TAB PO SCH (05:51)
[2021-12-03] MEDS: IPRATROPIUM-ALBUTEROL 3 ML NEB INHALATION SCH ×4 (07:43→20:38)
[2021-12-03] MEDS: SYMBICORT 160-4.5 MCG INHALER INHALATION SCH ×2 (07:43→20:38)
--- NOTE | 2021-12-03 08:09 | P.PN ---
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 On today's evaluation that is 12/02/2021, the patient continues to be afebrile, the patient is breathing comfortably on room air, patient denies chest pain , the patient denies any worsening cough or sputum production, the patient still complaining of nausea but no vomiting and abdominal pain has decreased in intensity and no diarrhea Objective - Vital Signs Vital signs: Vital Signs Temp 97.9 F 12/02/21 07:32 Pulse 83 12/02/21 07:32 Resp 16 12/02/21 07:32 BP 149/84 12/02/21 07:32 Pulse Ox 100 12/02/21 07:32 FiO2 Intake & Output 12/01/21 12/02/21 12/02/21 18:59 06:59 18:59 Intake Total 487.042 8907.833 Output Total 800 Balance 463.127 5937.833 Intake: IV 600 Sodium Chloride 4Meq/ml 600 Vial 28 meq Sodium Acetate 40 meq Calcium Gluconate 1 gm Mvi, Adult No.4 with Vit K 10 ml Trace (Conc-1Ml/Dose) 1 ml In Amino Acids 5 %/ Dextrose 20 % 1,000 ml @ 50 mls/hr IV .[id number] [facility] Rx#:[id number] Intake, IV Titration 991.667 955.833 Amount Sodium Chloride 4Meq/ml 991.667 955.833 Vial 28 meq Sodium Acetate 40 meq Calcium Gluconate 1 gm Mvi, Adult No.4 with Vit K 10 ml Trace (Conc-1Ml/Dose) 1 ml In Amino Acids 5 %/ Dextrose 20 % 1,000 ml @ 50 mls/hr IV .[id number] [facility] Rx#:[id number] Output: Urine 800 Other: Voiding Method Bedside Commode Bedside Commode # Voids 2 # Bowel Movements 1 1 - Exam GENERAL DESCRIPTION: An elderly female lying in bed in no distress RESPIRATORY SYSTEM: Unlabored breathing , decreased breath sounds at bases HEART: S1 S2 regular rate and rhythm , ABDOMEN: Soft , no tenderness EXTREMITIES: No edema feet - Labs CBC & Chem 7: 12/02/21 05:42 12/02/21 05:42 Labs: Abnormal Lab Results - Last 24 Hours (Table) 12/02/21 12/02/21 Range/Units 05:42 05:42 WBC 19.20 H (4.50-10.00) X 10*3/uL Hgb 11.2 L (12.0-15.0) g/dL Hct 35.3 L (37.2-46.3) % MCH 26.7 L (27.0-32.0) pg MCHC 31.7 L (32.0-37.0) g/dL RDW 15.6 H (11.5-14.5) % Immature Gran # 0.08 H (0.00-0.04) X 10*3/uL Neutrophils # 14.37 H (1.80-7.70) X 10*3/uL Monocytes # 1.34 H (0.20-1.00) X 10*3/uL BUN 70 H (7-17) mg/dL Creatinine 1.26 H (0.52-1.04) mg/dL AST 37 H (14-36) U/L Alkaline Phosphatase 266 H (38-126) U/L Albumin 3.3 L (3.5-5.0) g/dL Assessment and Plan (1) Pneumonia Current Visit: Yes Status: Acute Code(s): J18.9 - PNEUMONIA, UNSPECIFIED ORGANISM SNOMED Code(s): 723624054 Plan: 1-patient presented to hospital with shortness of breath and cough in this patient did have evidence of cavitating pneumonia on the chest x-ray with recent bronchoscopy culture positive for Mycobacterium abscessus likely the etiology, sensitivities are currently pending 2-patient did have a chest CT on 11/19/2021 with evidence of increase in size and number of cavitating lesion concerning for necrotizing pneumonia 3patient is currently being treated amikacin pharmacy to dose along with with imipenem and tigecycline, kidney function is monitored closely with a cre atinine stable, 4- with persistently elevated white count and I risk of fungal infection will add Eraxis and follow-up on repeat cultures
[2021-12-03] MEDS ORDERED: ANIDULAFUNGIN 200 MG in SODIUM CHLORIDE 0.9% 200 ML IVPB ONE (08:30)
[2021-12-03] MEDS: METHADONE 10 MG TAB PO SCH ×2 (09:03→20:59)
[2021-12-03] MEDS: ASPIRIN 81 MG PO SCH (09:04)
[2021-12-03] MEDS: PARoxetine 10 MG TAB PO SCH (09:04)
[2021-12-03] MEDS: PANTOPRAZOLE 40 MG TABLET PO SCH (09:04)
[2021-12-03] MEDS: hydrOXYzine pamoate 25 MG CAP PO SCH ×3 (09:04→21:00)
[2021-12-03] MEDS: polyethylene glycoL 3350 17 GM POWD.PACK PO SCH (09:04)
[2021-12-03] MEDS: buPROPion XL 300 MG TAB.ER.24H PO SCH (09:04)
[2021-12-03] MEDS: guaiFENesin 600 MG TABLET.ER PO SCH ×2 (09:04→20:59)
[2021-12-03] MEDS: SODIUM BICARBONATE TAB 650 MG TAB PO SCH (09:04)
[2021-12-03] MEDS: FAT EMULSION 20% 250 ML in EMPTY BAG 1 BAG IV SCH (09:05)
[2021-12-03] MEDS: busPIRone HCl 10 MG TAB PO SCH ×2 (09:05→20:59)
[2021-12-03] MEDS: LORATADINE 10 MG TAB PO SCH (09:05)
[2021-12-03] MEDS: HEPARIN SODIUM,PORCINE/PF 5,000 UNIT/0.5 ML SYRINGE SQ SCH ×2 (09:06→21:00)
[2021-12-03 09:08] LABS: Basophils # (A) 0.06 X 10*3/uL (0.00-0.10); Basophils % (A) 0.4 %; Eosinophils # (A) 0.18 X 10*3/uL (0.04-0.35); Eosinophils % (A) 1.1 %; HCT 36.3 % (37.2-46.3); HGB 11.3 g/dL (12.0-15.0); Immature Grans, Automated 0.5 %; Lymphocytes # (A) 2.22 X 10*3/uL (0.90-5.00); Lymphocytes % (A) 13.4 %; MCH 26.8 pg (27.0-32.0); MCHC 31.1 g/dL (32.0-37.0); Mean Platelet Volume 10.8 fL (9.5-12.2); Monocytes # (A) 0.96 X 10*3/uL (0.20-1.00); Monocytes % (A) 5.8 %; NRBC Per 100 WBC 0 /100 WBCS (0.0-0.0); Neutrophils # (A) 13.01 X 10*3/uL (1.80-7.70); Neutrophils % (A) 78.8 %; Platelet Count 351 X 10*3/uL (140-440); RBC 4.22 X 10*6/uL (4.10-5.20); WBC 16.52 X 10*3/uL (4.50-10.00)
[2021-12-03] MEDS: SODIUM CHLORIDE 0.9% 1,000 ML IV SCH (09:10)
[2021-12-03 09:47] LABS: Magnesium 2.1 mg/dL (1.5-2.4); Phosphorus 2.9 mg/dL (2.4-5.1)
--- NOTE | 2021-12-03 09:51 | P.PN ---
Subjective Patient is seen in follow-up for chronic kidney disease. Renal function stable with creatinine at 1.26 as of yesterday. Receiving TPN. Denies chest pain or shortness of breath. Has been voiding. Oral intake is fair. Vital signs are stable. General: Awake. No acute distress. HEENT: Head exam is unremarkable. LUNGS: Breath sounds decreased. HEART: Rate and Rhythm are regular. ABDOMEN: Soft, no distention. EXTREMITITES: No edema. Objective - Vital Signs Vital signs: Vital Signs Temp 98.5 F 12/03/21 07:51 Pulse 96 12/03/21 07:51 Resp 16 12/03/21 07:51 BP 152/77 12/03/21 07:51 Pulse Ox 97 12/03/21 07:51 FiO2 Intake & Output 12/02/21 12/03/21 12/03/21 18:59 06:59 18:59 Intake Total 600 Balance 600 Weight 38.102 kg Intake: IV 600 Sodium Chloride 4Meq/ml 600 Vial 28 meq Sodium Acetate 40 meq Calcium Gluconate 1 gm Mvi, Adult No.4 with Vit K 10 ml Trace (Conc-1Ml/Dose) 1 ml In Amino Acids 5 %/ Dextrose 20 % 1,000 ml @ 50 mls/hr IV .[id number] [facility] Rx#:[id number] Other: # Voids 1 1 # Bowel Movements 1 1 - Labs CBC & Chem 7: 12/03/21 05:42 12/02/21 05:42 Labs: Abnormal Lab Results - Last 24 Hours (Table) 12/03/21 Range/Units 05:42 WBC 16.52 H (4.50-10.00) X 10*3/uL Hgb 11.3 L (12.0-15.0) g/dL Hct 36.3 L (37.2-46.3) % MCH 26.8 L (27.0-32.0) pg MCHC 31.1 L (32.0-37.0) g/dL RDW 16.0 H (11.5-14.5) % Immature Gran # 0.09 H (0.00-0.04) X 10*3/uL Neutrophils # 13.01 H (1.80-7.70) X 10*3/uL Microbiology - Last 24 Hours (Table) 12/01/21 10:44 Blood Culture - Preliminary Blood No Growth after 24 hours 12/01/21 10:44 Blood Culture - Preliminary Blood No Growth after 24 hours Assessment and Plan Plan: Assessment: 1. 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 GFR at baseline. 2. 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 ID following. 3. Hypertension with chronic kidney disease. Stable. 4. Mild acute kidney injury mostly prerenal. Improved. 5. Right renal atrophy. 6. Malnutrition with history of gastrectomy maintained on TPN. Plan: Maintain TPN. Encouraged oral intake. Stop oral bicarb. Avoid nephrotoxins. Continue to monitor renal function and urine output.
[2021-12-03 09:52] LABS: African American GFR (CKD) 42.8 (60.0-200.0); Albumin 3.4 g/dL (3.8-4.9); Albumin/Globulin Ratio 1.26 (1.60-3.17); Anion Gap 12.5 mmol/L (10.00-18.00); BUN/Creat Ratio 43.43 Ratio (12.00-20.00); Blood Urea Nitrogen 60.8 mg/dL (9.0-27.0); Calcium 9.1 mg/dL (8.7-10.3); Carbon Dioxide 28.5 mmol/L (20.0-27.5); Globulin 2.7 g/dL (1.6-3.3); Non-African American GFR(CKD) 36.9 (60.0-200.0); Potassium 4.4 mmol/L (3.5-5.5); Total Bilirubin 0.2 mg/dL (0.30-1.20); Total Protein 6.1 g/dL (6.2-8.2)
[2021-12-03] MEDS: CHOLESTYRAMINE (WITH SUGAR) 4 GM PACKET PO SCH ×2 (10:54→17:42)
[2021-12-03] MEDS: TIGECYCLINE 50 MG in SODIUM CHLORIDE 0.9% 100 ML IVPB SCH ×2 (12:25→21:30)
--- NOTE | 2021-12-03 13:28 | P.PN ---
Subjective Progress Note Date: 12/03/21 CHIEF COMPLAINT: Small bowel obstructive versus ileus HISTORY OF PRESENT ILLNESS: Patient is sitting up in bed. She does report nausea. No vomiting. She is having bowel movements. She's currently on a clear liquid diet. Abdominal x-ray shows nonobstructive bowel gas pattern with contrast demonstrated throughout the small and large bowel. Her CAT scan was last done on 11/27/2021. Patient has slow transit of contrast through the bowel. Likely due to gastroparesis. PHYSICAL EXAM: VITAL SIGNS: Reviewed GENERAL: Well-developed in no acute distress. HEENT: No sclera icterus. Extraocular movements grossly intact. Moist buccal mucosa. Head is atraumatic, normocephalic. Hears conversational speech. No nasal drainage. NECK: Supple without lymphadenopathy. CHEST: Non-labored respirations and equal bilateral excursions. CARDIOVASCULAR: Palpable 2+ radial pulses. ABDOMEN: Soft. Nondistended. MUSCULOSKELETAL: No clubbing or cyanosis. NEUROLOGIC: No focal or lateralizing signs. Cranial nerves II through XII grossly intact. PSYCH: Appropriate affect. Alert and oriented to person, place and time. SKIN: Well perfused. Good skin turgor. ASSESSMENT: 1. Ileus versus partial small bowel obstruction 2. Leukocytosis 3. Severe protein calorie malnutrition 4. History of esophageal dysmotility 5. Gastroparesis PLAN: -Continue clear liquid diet -Unable to add Reglan due to its interaction with patient's psychiatric meds -Continue TPN for nutrition support -Continue supportive care -Continue antiemetics Physician Technology Assistant note has been reviewed by physician. Signing provider agrees with the documented findings, assessment, and plan of care. Objective - Vital Signs Vital signs: Vital Signs Temp 98.5 F 12/03/21 07:51 Pulse 96 12/03/21 07:51 Resp 16 12/03/21 07:51 BP 152/77 12/03/21 07:51 Pulse Ox 97 12/03/21 07:51 FiO2 Intake & Output 12/02/21 12/03/21 12/03/21 18:59 06:59 18:59 Intake Total 600 Balance 600 Weight 38.102 kg Intake: IV 600 Sodium Chloride 4Meq/ml 600 Vial 28 meq Sodium Acetate 40 meq Calcium Gluconate 1 gm Mvi, Adult No.4 with Vit K 10 ml Trace (Conc-1Ml/Dose) 1 ml In Amino Acids 5 %/ Dextrose 20 % 1,000 ml @ 50 mls/hr IV .[id number] [facility] Rx#:[id number] Other: # Voids 1 1 # Bowel Movements 1 1 - Labs CBC & Chem 7: 12/03/21 05:42 12/03/21 05:42 Labs: Abnormal Lab Results - Last 24 Hours (Table) 12/03/21 12/03/21 Range/Units 05:42 05:42 WBC 16.52 H (4.50-10.00) X 10*3/uL Hgb 11.3 L (12.0-15.0) g/dL Hct 36.3 L (37.2-46.3) % MCH 26.8 L (27.0-32.0) pg MCHC 31.1 L (32.0-37.0) g/dL RDW 16.0 H (11.5-14.5) % Immature Gran # 0.09 H (0.00-0.04) X 10*3/uL Neutrophils # 13.01 H (1.80-7.70) X 10*3/uL Carbon Dioxide 28.5 H (20.0-27.5) mmol/L BUN 60.8 H (9.0-27.0) mg/dL Est GFR (CKD-EPI)AfAm 42.8 L (60.0-200.0) Est GFR (CKD-EPI)NonAf 36.9 L (60.0-200.0) BUN/Creatinine Ratio 43.43 H (12.00-20.00) Ratio Total Bilirubin 0.20 L (0.30-1.20) mg/dL AST 39 H (13-35) U/L Alkaline Phosphatase 282 H (41-126) U/L Total Protein 6.1 L (6.2-8.2) g/dL Albumin 3.4 L (3.8-4.9) g/dL Albumin/Globulin Ratio 1.26 L (1.60-3.17) g/dL Microbiology - Last 24 Hours (Table) 12/01/21 10:44 Blood Culture - Preliminary Blood No Growth after 48 hours 12/01/21 10:44 Blood Culture - Preliminary Blood No Growth after 48 hours
--- NOTE | 2021-12-03 15:34 | P.PN ---
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 Gregorio infectious disease. She was started on IV antibiotic in the emergency room, will continue with same at this time will resume TPN, consultation for pulmonary and infectious disease were initiated On 11/19/2021 patient was seen and examined on the medical floor she is alert an d oriented 3 in no apparent distress she is complaining of abdominal cramping and diarrhea she is still complaining of cough and shortness of breath otherwise she denies any complaints there is no fever or chills no headache or dizziness no chest pain no nausea or vomiting, no blood in the stools no burning with urination no frequency or urgency and no hematuria. At this time will send a stool sample for C. diff will continue was current management otherwise. On 11/20/2021 patient was seen and examined on the medical floor she is alert and oriented in no distress, she is still complaining of cough and shortness of breath otherwise she denies any complaints there is no fever or chills no h eadache or dizziness no chest pain no nausea or vomiting no abdominal pain no blood in the stools no burning with urination no frequency or urgency no hematuria, patient still complaining of some diarrhea .Will check stools for C. diff On 11/21/2021 patient was seen and examined on the medical floor she is alert and oriented in no distress, she is still complaining of cough and shortness of breath otherwise she denies any complaints there is no fever or chills no headache or dizziness no chest pain no nausea or vomiting no abdominal pain no blood in the stools no burning with urination no frequency or urgency no hematuria, patient still complaining of some diarrhea. On 11/22/2021 patient was seen and examined on the medical floor she is alert and oriented 3 in no apparent distress she is complaining of abdominal pain and cramping otherwise she denies any complaints at this time there is no fever or chills no headache or dizziness no chest pain no shortness of breath no cough no nausea or vomiting no blood in the stools no burning with urination frequency or urgency and no hematuria On 11/23/2021 patient was seen and examined on the medical floor she is alert and oriented 3 in no distress she is still complaining of abdominal discomfort but states has improved since yesterday otherwise she denies any complaints there is no fever or chills no headache or dizziness no chest pain no shortness of breath no cough no nausea or vomiting no diarrhea no blood in the stools no burning with urination no frequency or urgency and no hematuria. Abdomen x-ray and abdomen ultrasound reviewed no acute abnormality of the abdomen. On 11/24/2021 patient was seen and examined on the medical floor she is alert and oriented 3 in no apparent distress there is no fever or chills no headache or dizziness no chest pain no shortness of breath no cough no nausea or vomiting no abdominal pain no diarrhea no blood in the stools no burning with urination no frequency or urgency and no hematuria. Abdominal discomfort has improved medication and labs were reviewed continue with current regimen will follow in a.m. On 11/25/2021 patient was seen and examined on the medical floor she is alert and oriented 3 in no distress she is complaining of shortness of breath with activity her abdominal discomfort has improved there is no fever or chills no headache or dizziness no chest pain no nausea or vomiting no abdominal pain no diarrhea no blood in the stools no burning with urination no frequency or urgency and no hematuria On 11/26/2021 patient is alert and oriented in no distress she is complaining of shortness of breath with activity she is complaining of episodes of vomiting oth erwise she denies any complaints there is no fever or chills no headache or dizziness no chest pain no shortness of breath no cough, no abdominal pain no diarrhea no blood in the stools no burning with urination no frequency or urgency and no hematuria. On 11/27/2021 patient was seen and examined on the medical floor she is alert and oriented 3 in no apparent distress she is still complaining of abdominal discomfort and vomiting otherwise she denies any complaints there is no fever or chills no headache or dizziness no chest pain no shortness of breath no cough no urinary symptoms. At this time will check computed tomography scan of the abdomen and pelvis with oral contrast, Will consult Dr. auguste for evaluation of abdominal pain and vomiting On 11/28/2021 patient was seen and examined on the medical floor she is alert and oriented 3 in no apparent distress she is still complaining of abdominal discomfort and vomiting otherwise she denies any complaints there is no fever or chills no headache or dizziness no chest pain no shortness of breath no cough no urinary symptoms. patient has evidence of small bowel obstruction, Dr Guadalupe following On 11/29/2021 patient was seen and examined on the medical floor she is alert and oriented 3 in no apparent distress there is no fever or chills no headache or dizziness no chest pain no shortness of breath she has occasional cough there is no nausea or vomiting she has mild abdominal discomfort no diarrhea no blood in the stools no burning with urination no frequency or urgency and no hematuria. Repeat computed tomography scan of the abdomen and pelvis, reveals improvement no surgical intervention is recommended at this time, continue with current medication will follow in a.m.. On 11/30/2021 patient was seen and examined on the medical floor she is alert and oriented 3 in no apparent distress she is complaining of generalized fatigue and nausea she is complaining of shortness of breath with activity otherwise she denies any complaints there is no fever or chills no headache or dizziness no chest pain no shortness of breath no cough no vomiting no abdominal pain no diarrhea and no urinary symptoms On 12/01/2021 patient was seen and examined on the medical floor she is alert and oriented 3 she is still complaining of generalized weakness otherwise she denies any complaints there is no fever or chills no headache or dizziness no chest pain no shortness of breath she has occasional cough no nausea or vomiting no abdominal pain no diarrhea and no urinary symptoms. On 12/02/2021 patient was seen and examined on the medical floor she is alert and oriented in no distress there is no fever or chills no headache or dizziness no chest pain no shortness of breath no cough she has some nausea this morning no vomiting no abdominal pain no diarrhea and no blood in the stools no burning with urination no frequency or urgency and no hematuria. On 12/03/2021 patient was seen and examined on the medical floor, she is alert and oriented 3 in no apparent distress she is maintained on IV antibiotic and TPN she is [facility] patient will be maintained on IV antibiotic and TPN at the time of discharge. Antibiotic orders per Dr. Gregorio, plan for discharge tomorrow Objective - Vital Signs Vital signs: Vital Signs Temp 97.8 F 12/03/21 13:34 Pulse 104 H 12/03/21 13:34 Resp 16 12/03/21 13:34 BP 128/83 12/03/21 13:34 Pulse Ox 97 12/03/21 07:51 FiO2 Intake & Output 12/02/21 12/03/21 12/03/21 18:59 06:59 18:59 Intake Total 600 Balance 600 Weight 38.102 kg Intake: IV 600 Sodium Chloride 4Meq/ml 600 Vial 28 meq Sodium Acetate 40 meq Calcium Gluconate 1 gm Mvi, Adult No.4 with Vit K 10 ml Trace (Conc-1Ml/Dose) 1 ml In Amino Acids 5 %/ Dextrose 20 % 1,000 ml @ 50 mls/hr IV .[id number] [facility] Rx#:[id number] Other: # Voids 1 1 # Bowel Movements 1 1 - Exam In general patient is alert and oriented x 3 in no distress HEENT head normocephalic and atraumatic Neck is supple no JVD no goiter no lymphadenopathy no carotid bruit Chest examination reveals a scattered crackles in both lung calixto no wheezing Cardiac exam reveals regular heart sounds S1 and S2 no gallops no murmurs Abdomen is soft nontender no organomegaly with normal bowel sounds Extremity exam reveals no edema no cyanosis or clubbing Neurological examination reveals no gross focal deficits - Labs CBC & Chem 7: 12/03/21 05:42 12/03/21 05:42 Labs: Abnormal Lab Results - Last 24 Hours (Table) 12/03/21 12/03/21 Range/Units 05:42 05:42 WBC 16.52 H (4.50-10.00) X 10*3/uL Hgb 11.3 L (12.0-15.0) g/dL Hct 36.3 L (37.2-46.3) % MCH 26.8 L (27.0-32.0) pg MCHC 31.1 L (32.0-37.0) g/dL RDW 16.0 H (11.5-14.5) % Immature Gran # 0.09 H (0.00-0.04) X 10*3/uL Neutrophils # 13.01 H (1.80-7.70) X 10*3/uL Carbon Dioxide 28.5 H (20.0-27.5) mmol/L BUN 60.8 H (9.0-27.0) mg/dL Est GFR (CKD-EPI)AfAm 42.8 L (60.0-200.0) Est GFR (CKD-EPI)NonAf 36.9 L (60.0-200.0) BUN/Creatinine Ratio 43.43 H (12.00-20.00) Ratio Total Bilirubin 0.20 L (0.30-1.20) mg/dL AST 39 H (13-35) U/L Alkaline Phosphatase 282 H (41-126) U/L Total Protein 6.1 L (6.2-8.2) g/dL Albumin 3.4 L (3.8-4.9) g/dL Albumin/Globulin Ratio 1.26 L (1.60-3.17) g/dL Microbiology - Last 24 Hours (Table) 12/01/21 10:44 Blood Culture - Preliminary Blood No Growth after 48 hours 12/01/21 10:44 Blood Culture - Preliminary Blood No Growth after 48 hours Assessment and Plan Plan: Recurrent pneumonia was cough and shortness of breath Evidence of dehydration related to nausea vomiting Malnutrition related to previous gastrectomy maintained on TPN Recurrent aspiration pneumonia Previous history of stroke Underlying history of hypothyroidism Underlying history of spinal stenosis with chronic back pain Underlying history of depression with anxiety At this time patient is admitted to medical floor She was started on IV antibiotic Zosyn and Zithromax in the emergency room will continue with same at this time Consultation for pulmonary and infectious disease initiated For DVT prophylaxis patient on subcu heparin
[2021-12-03] MEDS: FERROUS SULFATE 325 MG TAB PO SCH (17:42)
[2021-12-03] MEDS: MIRTAZAPINE 45 MG TABLET PO SCH (21:00)
--- NOTE | 2021-12-03 22:58 | P.PN ---
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 On today's evaluation that is 12/03/2021, the patient denies any fever or any chills, the patient is breathing comfortably on room air, patient denies chest pain , the patient denies any worsening cough or sputum production, the patient main symptom remains to be nausea but no vomiting and abdominal pain however no worsening diarrhea Objective - Vital Signs Vital signs: Vital Signs Temp 98.5 F 12/03/21 07:51 Pulse 96 12/03/21 07:51 Resp 16 12/03/21 07:51 BP 152/77 12/03/21 07:51 Pulse Ox 97 12/03/21 07:51 FiO2 Intake & Output 12/02/21 12/03/21 12/03/21 18:59 06:59 18:59 Intake Total 600 Balance 600 Weight 38.102 kg Intake: IV 600 Sodium Chloride 4Meq/ml 600 Vial 28 meq Sodium Acetate 40 meq Calcium Gluconate 1 gm Mvi, Adult No.4 with Vit K 10 ml Trace (Conc-1Ml/Dose) 1 ml In Amino Acids 5 %/ Dextrose 20 % 1,000 ml @ 50 mls/hr IV .[id number] [facility] Rx#:[id number] Other: # Voids 1 1 # Bowel Movements 1 1 - Exam GENERAL DESCRIPTION: An elderly female lying in bed in no distress RESPIRATORY SYSTEM: Unlabored breathing , decreased breath sounds at bases HEART: S1 S2 regular rate and rhythm , ABDOMEN: Soft , no tenderness EXTREMITIES: No edema feet - Labs CBC & Chem 7: 12/03/21 05:42 12/03/21 05:42 Labs: Abnormal Lab Results - Last 24 Hours (Table) 12/03/21 12/03/21 Range/Units 05:42 05:42 WBC 16.52 H (4.50-10.00) X 10*3/uL Hgb 11.3 L (12.0-15.0) g/dL Hct 36.3 L (37.2-46.3) % MCH 26.8 L (27.0-32.0) pg MCHC 31.1 L (32.0-37.0) g/dL RDW 16.0 H (11.5-14.5) % Immature Gran # 0.09 H (0.00-0.04) X 10*3/uL Neutrophils # 13.01 H (1.80-7.70) X 10*3/uL Carbon Dioxide 28.5 H (20.0-27.5) mmol/L BUN 60.8 H (9.0-27.0) mg/dL Est GFR (CKD-EPI)AfAm 42.8 L (60.0-200.0) Est GFR (CKD-EPI)NonAf 36.9 L (60.0-200.0) BUN/Creatinine Ratio 43.43 H (12.00-20.00) Ratio Total Bilirubin 0.20 L (0.30-1.20) mg/dL AST 39 H (13-35) U/L Alkaline Phosphatase 282 H (41-126) U/L Total Protein 6.1 L (6.2-8.2) g/dL Albumin 3.4 L (3.8-4.9) g/dL Albumin/Globulin Ratio 1.26 L (1.60-3.17) g/dL Microbiology - Last 24 Hours (Table) 12/01/21 10:44 Blood Culture - Preliminary Blood No Growth after 24 hours 12/01/21 10:44 Blood Culture - Preliminary Blood No Growth after 24 hours Assessment and Plan (1) Pneumonia Current Visit: Yes Status: Acute Code(s): J18.9 - PNEUMONIA, UNSPECIFIED ORGANISM SNOMED Code(s): 274884366 Plan: 1-patient presented to hospital with shortness of breath and cough in this patient did have evidence of cavitating pneumonia on the chest x-ray with recent bronchoscopy culture positive for Mycobacterium abscessus likely the etiology, sensitivities are currently pending 2-patient did have a chest CT on 11/19/2021 with evidence of increase in size and number of cavitating lesion concerning for necrotizing pneumonia 3patient to continue amikacin pharmacy to dose along with with imipenem and tigecycline with the plan for another 10 weeks of treatment as the patient has already received 2 weeks of current treatment, kidney function will be monitored closely Time with Patient: Less than 30
[2021-12-03] MEDS: ONDANSETRON ODT 4 MG TAB PO PRN (23:25)
[2021-12-04] MEDS: HYDROmorphone 0.5 MG/0.5 ML SYRINGE IVP PRN ×3 (03:19→11:48)
[2021-12-04] MEDS: IMIPENEM CILASTATIN IVPB SCH (03:30)
[2021-12-04] MEDS: SODIUM CHLORIDE 0.9% IVPB SCH ×2 (03:30→05:36)
[2021-12-04] MEDS: BUTALB/APAP/CAFF 50-325-40MG TAB PO PRN ×2 (04:45→10:48)
[2021-12-04] MEDS: AMIKACIN SULFATE IVPB SCH (05:36)
[2021-12-04] MEDS: LEVOTHYROXINE 100 MCG TAB PO SCH (05:45)
[2021-12-04] MEDS: LORATADINE 10 MG TAB PO SCH (07:08)
[2021-12-04] MEDS: hydrOXYzine pamoate 25 MG CAP PO SCH (07:08)
[2021-12-04] MEDS: PANTOPRAZOLE 40 MG TABLET PO SCH (07:08)
[2021-12-04] MEDS: guaiFENesin 600 MG TABLET.ER PO SCH (07:08)
[2021-12-04] MEDS: buPROPion XL 300 MG TAB.ER.24H PO SCH (07:08)
[2021-12-04] MEDS: busPIRone HCl 10 MG TAB PO SCH (07:09)
[2021-12-04] MEDS: METHADONE 10 MG TAB PO SCH (07:10)
[2021-12-04] MEDS: PARoxetine 10 MG TAB PO SCH (07:11)
[2021-12-04] MEDS: polyethylene glycoL 3350 17 GM POWD.PACK PO SCH (07:11)
[2021-12-04] MEDS: ASPIRIN 81 MG PO SCH (07:11)
[2021-12-04] MEDS: HEPARIN SODIUM,PORCINE/PF 5,000 UNIT/0.5 ML SYRINGE SQ SCH (07:11)
[2021-12-04] MEDS ORDERED: SODIUM CHLORIDE IV SCH ×8 (07:30)
[2021-12-04] MEDS ORDERED: SODIUM ACETATE IV SCH ×8 (07:30)
[2021-12-04] MEDS ORDERED: SODIUM PHOSPHATE IV SCH ×8 (07:30)
[2021-12-04] MEDS ORDERED: [UNRECOGNIZED DRUG - OTHER] IV SCH ×8 (07:30)
[2021-12-04 07:40] VITALS: BP 162/92; PULSE 100; RESP 18; TEMP 98
[2021-12-04] MEDS: IPRATROPIUM-ALBUTEROL 3 ML NEB INHALATION SCH ×2 (08:59→12:04)
[2021-12-04] MEDS: SYMBICORT 160-4.5 MCG INHALER INHALATION SCH (08:59)
[2021-12-04] MEDS ORDERED: ANIDULAFUNGIN 100 MG in SODIUM CHLORIDE 0.9% 100 ML IVPB SCH ×2 (09:00→12:00)
[2021-12-04 09:17] LABS: African American GFR (CKD) 46.4 (60.0-200.0); Anion Gap 11.6 mmol/L (10.00-18.00); BUN/Creat Ratio 37.94 Ratio (12.00-20.00); Blood Urea Nitrogen 49.7 mg/dL (9.0-27.0); Calcium 8.7 mg/dL (8.7-10.3); Carbon Dioxide 27.1 mmol/L (20.0-27.5); Phosphorus 2.6 mg/dL (2.4-5.1); Potassium 3.9 mmol/L (3.5-5.5)
[2021-12-04] MEDS: TIGECYCLINE 50 MG in SODIUM CHLORIDE 0.9% 100 ML IVPB SCH (09:27)
--- NOTE | 2021-12-04 10:17 | P.PN ---
Subjective Patient is seen in follow-up for chronic kidney disease. Renal function stable. Receiving TPN. Denies chest pain or shortness of breath. Has been voiding. Oral intake is fair. Vital signs are stable. General: Awake. No acute distress. Cachectic appearing. HEENT: Head exam is unremarkable. LUNGS: Breath sounds decreased. HEART: Rate and Rhythm are regular. ABDOMEN: Soft, no distention. EXTREMITITES: No edema. Objective - Vital Signs Vital signs: Vital Signs Temp 98 F 12/04/21 07:39 Pulse 100 12/04/21 07:39 Resp 18 12/04/21 07:39 BP 162/92 12/04/21 07:39 Pulse Ox 97 12/04/21 07:39 FiO2 Intake & Output 12/03/21 12/04/21 12/04/21 18:59 06:59 18:59 Intake Total 927.5 Output Total 1 Balance -1 927.5 Intake: Intake, IV Titration 927.5 Amount Sodium Phosphate 6 mmol 927.5 Sodium Chloride 4Meq/ml Vial 28 meq Sodium Acetate 36 meq Magnesium Sulfate gm 0.5 gm Calcium Gluconate 1 gm Mvi, Adult No.4 with Vit K 10 ml Trace (Conc-1Ml/Dose) 1 ml In Amino Acids 5 %/ Dextrose 20 % 1,000 ml @ 50 mls/hr IV .[id number] [facility] Rx#:[id number] Output: Urine 1 Other: # Voids 6 # Bowel Movements 1 3 - Labs CBC & Chem 7: 12/03/21 05:42 12/04/21 06:20 Labs: Abnormal Lab Results - Last 24 Hours (Table) 12/04/21 Range/Units 06:20 BUN 49.7 H (9.0-27.0) mg/dL Est GFR (CKD-EPI)AfAm 46.4 L (60.0-200.0) Est GFR (CKD-EPI)NonAf 40.0 L (60.0-200.0) BUN/Creatinine Ratio 37.94 H (12.00-20.00) Ratio Microbiology - Last 24 Hours (Table) 12/01/21 10:44 Blood Culture - Preliminary Blood No Growth after 48 hours 12/01/21 10:44 Blood Culture - Preliminary Blood No Growth after 48 hours Assessment and Plan Plan: Assessment: 1. 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 GFR at baseline. 2. 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 ID following. 3. Hypertension with chronic kidney disease. 4. Mild acute kidney injury mostly prerenal. Improved. 5. Right renal atrophy. 6. Malnutrition with history of gastrectomy maintained on TPN. Plan: Maintain TPN. Encouraged oral intake. Avoid nephrotoxins. Continue to monitor renal function and urine output.
[2021-12-04] MEDS: CHOLESTYRAMINE (WITH SUGAR) 4 GM PACKET PO SCH (10:45)
--- NOTE | 2021-12-04 11:01 | P.DS ---
Providers Date of admission: 11/17/21 15:20 Expected date of discharge: 12/04/21 Attending physician: Palmer Desir Consults: 11/17/21 15:17 Consult Physician Routine Consulting Provider: Ortiz Hernandez Consult Reason/Comments: worsening pneumonia Do you want consulting provider notified?: Yes 11/18/21 18:24 Consult Physician Routine Consulting Provider: Jas Gregorio Consult Reason/Comments: Pneumonia Do you want consulting provider notified?: Yes 11/27/21 17:01 Consult Physician Routine Consulting Provider: Nathan Guadalupe Consult Reason/Comments: abdominal pain, vomiting Do you want consulting provider notified?: Yes 11/28/21 17:17 Consult Physician Routine Consulting Provider: Nohelia Long Consult Reason/Comments: acute kidney injury Do you want consulting provider notified?: Yes Primary care physician: Ale Eli Hospital Course: Diagnosis on discharge: Recurrent pneumonia was cough and shortness of breath evidence of cavitating pneumonia on the chest x-ray with recent bronchoscopy culture positive for Mycobacterium abscessus Evidence of dehydration related to nausea vomiting Malnutrition related to previous gastrectomy maintained on TPN Recurrent aspiration pneumonia Previous history of stroke Underlying history of hypothyroidism Underlying history of spinal stenosis with chronic back pain Underlying history of depression with anxiety Hospital course: 76-year-old female patient who is well-known to our service from previous hospitalizations for recurrent aspiration related pneumonia. Patient has a history of gastrectomy and patient is on TPN for nutritional support with some oral feedings. She has recently been in the hospital, after she had accidentally cut off one of the PICC line ports at home. A new PICC line was placed, patient was discharged home in stable condition to resume TPN and with the home care. Patient's primary care physician Dr. Eli had been trying to get the patient to the [facility] where the patient had her original gastrectomy. Most recently patient had undergone navigational bronchoscopy with biopsies and BAL of the left lower lobe on 10/09/2021 BAL cultures revealed Lesly glabrata, and Mycobacterium abscesses. Patient had received antibiotic infusions in the form of Zosyn. Right lower lobe lung biop sy was nondiagnostic for viable neoplasm, and negative for definitive granulomatous inflammation, left lower lung biopsy was nondiagnostic due to scant cellularity and abundant necrosis. Left lower lung bronchial wash brush tip and brushings were negative for diagnostic malignancy. On 11/17/2021 patient came into the emergency department with shortness of breath, cough, brown-colored phlegm production, decreased appetite, nausea vomiting diarrhea, and pain along the bilateral rib cage wrap around the back. Chest x-ray showed worsening left perihilar and left lower lobe infiltrate, and there was some improvement of the right perihilar increased lung markings. White count was elevated at 15.6, hemoglobin of 11, electrolytes are within normal limits, BUN was 20 creatinine 1.27, alk phos was 236, AST and OT were within normal limits, proBNP was 867 and troponin was less than 0.012, urinalysis showed rare budding yeast, small amount of leuks. COVID-19 influenza A and B were negative On 11/18/2021 patient was seen and examined on the medical floor she is alert and oriented 3 in no apparent distress, she is complaining of cough and shortness of breath otherwise she denies any complaints, patient has a prolonged past medical history with recurrent admissions to [facility] was pneumonia she had a bronchoscopy was Dr. 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 Gregorio infectious disease. She was started on IV antibiotic in the emergency room, will continue with same at this time will resume TPN, consultation for pulmonary and infectious disease were initiated On 11/19/2021 patient was seen and examined on the medical floor she is alert and oriented 3 in no apparent distress she is complaining of abdominal cramping and diarrhea she is still complaining of cough and shortness of breath otherwise she denies any complaints there is no fever or chills no headache or dizziness no chest pain no nausea or vomiting, no blood in the stools no burning with urination no frequency or urgency and no hematuria. At this time will send a stool sample for C. diff will continue was current management otherwise. On 11/20/2021 patient was seen and examined on the medical floor she is alert and oriented in no distress, she is still complaining of cough and shortness of breath otherwise she denies any complaints there is no fever or chills no headache or dizziness no chest pain no nausea or vomiting no abdominal pain no blood in the stools no burning with urination no frequency or urgency no hematuria, patient still complaining of some diarrhea .Will check stools for C. diff On 11/21/2021 patient was seen and examined on the medical floor she is alert and oriented in no distress, she is still complaining of cough and shortness of breath otherwise she denies any complaints there is no fever or chills no headache or dizziness no chest pain no nausea or vomiting no abdominal pain no blood in the stools no burning with urination no frequency or urgency no hematuria, patient still complaining of some diarrhea. On 11/22/2021 patient was seen and examined on the medical floor she is alert and oriented 3 in no apparent distress she is complaining of abdominal pain and cramping otherwise she denies any complaints at this time there is no fever or chills no headache or dizziness no chest pain no shortness of breath no cough no nausea or vomiting no blood in the stools no burning with urination frequency or urgency and no hematuria On 11/23/2021 patient was seen and examined on the medical floor she is alert and oriented 3 in no distress she is still complaining of abdominal discomfort but states has improved since yesterday otherwise she denies any complaints there is no fever or chills no headache or dizziness no chest pain no shortness of breath no cough no nausea or vomiting no diarrhea no blood in the stools no burning with urination no frequency or urgency and no hematuria. Abdomen x-ray and abdomen ultrasound reviewed no acute abnormality of the abdomen. On 11/24/2021 patient was seen and examined on the medical floor she is alert and oriented 3 in no apparent distress there is no fever or chills no headache or dizziness no chest pain no shortness of breath no cough no nausea or vomiting no abdominal pain no diarrhea no blood in the stools no burning with urination no frequency or urgency and no hematuria. Abdominal discomfort has improved medication and labs were reviewed continue with current regimen will follow in a.m. On 11/25/2021 patient was seen and examined on the medical floor she is alert and oriented 3 in no distress she is complaining of shortness of breath with activity her abdominal discomfort has improved there is no fever or chills no headache or dizziness no chest pain no nausea or vomiting no abdominal pain no diarrhea no blood in the stools no burning with urination no frequency or urgency and no hematuria On 11/26/2021 patient is alert and oriented in no distress she is complaining of shortness of breath with activity she is complaining of episodes of vomiting otherwise she denies any complaints there is no fever or chills no headache or dizziness no chest pain no shortness of breath no cough, no abdominal pain no diarrhea no blood in the stools no burning with urination no frequency or urgency and no hematuria. On 11/27/2021 patient was seen and examined on the medical floor she is alert and oriented 3 in no apparent distress she is still complaining of abdominal discomfort and vomiting otherwise she denies any complaints there is no fever or chills no headache or dizziness no chest pain no shortness of breath no cough no urinary symptoms. At this time will check computed tomography scan of the abdomen and pelvis with oral contrast, Will consult Dr. auguste for evaluation of abdominal pain and vomiting On 11/28/2021 patient was seen and examined on the medical floor she is alert and oriented 3 in no apparent distress she is still complaining of abdominal discomfort and vomiting otherwise she denies any complaints there is no fever or chills no headache or dizziness no chest pain no shortness of breath no cough no urinary symptoms. patient has evidence of small bowel obstruction, Dr Guadalupe following On 11/29/2021 patient was seen and examined on the medical floor she is alert and oriented 3 in no apparent distress there is no fever or chills no headache or dizziness no chest pain no shortness of breath she has occasional cough there is no nausea or vomiting she has mild abdominal discomfort no diarrhea no blood in the stools no burning with urination no frequency or urgency and no hematuria. Repeat computed tomography scan of the abdomen and pelvis, reveals improvement no surgical intervention is recommended at this time, continue with current medication will follow in a.m.. On 11/30/2021 patient was seen and examined on the medical floor she is alert and oriented 3 in no apparent distress she is complaining of generalized fatigue and nausea she is complaining of shortness of breath with activity otherwise she denies any complaints there is no fever or chills no headache or dizziness no chest pain no shortness of breath no cough no vomiting no abdominal pain no diarrhea and no urinary symptoms On 12/01/2021 patient was seen and examined on the medical floor she is alert and oriented 3 she is still complaining of generalized weakness otherwise she denies any complaints there is no fever or chills no headache or dizziness no chest pain no shortness of breath she has occasional cough no nausea or vomiting no abdominal pain no diarrhea and no urinary symptoms. On 12/02/2021 patient was seen and examined on the medical floor she is alert and oriented in no distress there is no fever or chills no headache or dizziness no chest pain no shortness of breath no cough she has some nausea this morning no vomiting no abdominal pain no diarrhea and no blood in the stools no burning with urination no frequency or urgency and no hematuria. On 12/03/2021 patient was seen and examined on the medical floor, she is alert and oriented 3 in no apparent distress she is maintained on IV antibiotic and TPN she is being evaluated by [facility] for possible transfer to [facility] patient will be maintained on IV antibiotic and TPN at the time of discharge. Antibiotic orders per Dr. Gregorio, plan for discharge tomorrow On 12/04/2021 patient was seen and examined on the medical floor, she is alert and oriented 3 in no apparent distress she is maintained on IV antibiotic and TPN she is being evaluated by ar[facility] ocho[facility] for possible transfer to [facility] patient will be maintained on IV antibiotic and TPN at the time of discharge. Antibiotic orders per Dr. Gregorio, patient should be continued on amikacin pharmacy to dose along with with imipenem and tigecycline with the plan for another 10 weeks of treatment plan for discharge today. Assessment: Diagnosis on discharge: Hospital course: Patient Condition at Discharge: Stable Plan - Discharge Summary New Discharge Prescriptions: New guaiFENesin [Mucinex] 600 mg PO Q12HR tab Cholestyramine (with Sugar) [Questran Packet] 4 gm PO BID@1000,1800 packet Continue Ferrous Sulfate [Iron (65 MG Elemental)] 325 mg PO DAILY@1200 calcitrioL [Calcitriol] 1 mcg PO MOWEFR busPIRone HCL [Buspar] 30 mg PO BID Butalb/APAP/Caff 50-325-40Mg [Fioricet 50-325-40] 1 tab PO Q6H PRN PRN Reason: Migraine Headache Albuterol Sulfate [Albuterol Sulfate Hfa] 2 puff INHALATION RT-Q6H PRN PRN Reason: Shortness Of Breath polyethylene glycoL 3350 [Miralax] 17 gm PO DAILY PRN PRN Reason: Constipation hydrOXYzine pamoate [Vistaril] 50 mg PO TID Omeprazole 20 mg PO DAILY Furosemide [Lasix] 20 mg PO DAILY PRN PRN Reason: Edema Sodium Bicarbonate Tab 650 mg PO DAILY 30 Days #30 tab Ondansetron [Zofran] 4 mg PO Q6H PRN PRN Reason: Nausea Methadone [Dolophine] 20 mg PO BID tab buPROPion XL [Wellbutrin XL] 300 mg PO DAILY Potassium Chloride ER [K-Dur 10] 30 meq PO DAILY PRN PRN Reason: WITH LASIX Acetaminophen Tab [Tylenol] 650 mg PO Q6HR PRN tab PRN Reason: Mild Pain Or Fever > 100.5 Ondansetron Odt [Zofran ODT] 4 mg PO Q8HR PRN #15 tab PRN Reason: Nausea And Vomiting Budesonide/Formoterol Fumarate [Symbicort 160-4.5 Mcg Inhaler] 2 puff INHALATION RT-BID Aspirin EC [Ecotrin Low Dose] 81 mg PO DAILY Levothyroxine Sodium [Synthroid] 100 mcg PO DAILY@629 30 Days #30 tab Mirtazapine [Remeron] 45 mg PO HS Loratadine [Claritin] 10 mg PO DAILY PARoxetine [Paxil] 10 mg PO DAILY Discharge Medication List Ferrous Sulfate [Iron (65 MG Elemental)] 325 mg PO DAILY@1200 11/06/15 [History] calcitrioL [Calcitriol] 1 mcg PO MOWEFR 06/07/19 [History] busPIRone HCL [Buspar] 30 mg PO BID 04/14/20 [History] Butalb/APAP/Caff 50-325-40Mg [Fioricet 50-325-40] 1 tab PO Q6H PRN 06/30/20 [History] Albuterol Sulfate [Albuterol Sulfate Hfa] 2 puff INHALATION RT-Q6H PRN 04/07/21 [History] Budesonide/Formoterol Fumarate [Symbicort 160-4.5 Mcg Inhaler] 2 puff INHALATION RT-BID 04/07/21 [History] Aspirin EC [Ecotrin Low Dose] 81 mg PO DAILY 05/12/21 [History] Levothyroxine Sodium [Synthroid] 100 mcg PO DAILY@629 30 Days #30 tab 06/19/21 [Rx] Furosemide [Lasix] 20 mg PO DAILY PRN 08/08/21 [History] Omeprazole 20 mg PO DAILY 08/08/21 [History] hydrOXYzine pamoate [Vistaril] 50 mg PO TID 08/08/21 [History] polyethylene glycoL 3350 [Miralax] 17 gm PO DAILY PRN 08/08/21 [History] Sodium Bicarbonate Tab 650 mg PO DAILY 30 Days #30 tab 08/21/21 [Rx] Mirtazapine [Remeron] 45 mg PO HS 09/01/21 [History] Ondansetron [Zofran] 4 mg PO Q6H PRN 09/01/21 [History] Methadone [Dolophine] 20 mg PO BID tab 09/10/21 [Rx] Potassium Chloride ER [K-Dur 10] 30 meq PO DAILY PRN 10/08/21 [History] buPROPion XL [Wellbutrin XL] 300 mg PO DAILY 10/08/21 [History] Loratadine [Claritin] 10 mg PO DAILY 10/28/21 [History] Acetaminophen Tab [Tylenol] 650 mg PO Q6HR PRN tab 10/29/21 [Rx] Ondansetron Odt [Zofran ODT] 4 mg PO Q8HR PRN #15 tab 11/06/21 [Rx] PARoxetine [Paxil] 10 mg PO DAILY 11/17/21 [History] Cholestyramine (with Sugar) [Questran Packet] 4 gm PO BID@1000,1800 packet 12/04/21 [Rx] guaiFENesin [Mucinex] 600 mg PO Q12HR tab 12/04/21 [Rx] Follow up Appointment(s)/Referral(s): Ale Eli MD [Primary Care Provider] - 1-2 days Garry Sanchez DO [Doctor of Osteopathic Medicine] - 11/27/21 3:00 pm [facility], [NON-STAFF] - As Needed Care,[facility] [NON-STAFF] - As Needed [facility], [REFERRING] - As Needed
--- NOTE | 2021-12-04 12:47 | P.PN ---
Subjective Progress Note Date: 12/04/21 CHIEF COMPLAINT: Small bowel obstructive versus ileus HISTORY OF PRESENT ILLNESS: Patient is sitting up in bed. She does complain of nausea. She reports vomiting once last night which wasn't seen by nursing staff. She does report having bowel movements and flatus. Afebrile. WBC is down from 19-16. Patient is being discharged today to [facility]. PHYSICAL EXAM: VITAL SIGNS: Reviewed GENERAL: Well-developed in no acute distress. HEENT: No sclera icterus. Extraocular movements grossly intact. Moist buccal mucosa. Head is atraumatic, normocephalic. Hears conversational speech. No nasal drainage. NECK: Supple without lymphadenopathy. CHEST: Non-labored respirations and equal bilateral excursions. CARDIOVASCULAR: Palpable 2+ radial pulses. ABDOMEN: Soft. Nondistended. MUSCULOSKELETAL: No clubbing or cyanosis. NEUROLOGIC: No focal or lateralizing signs. Cranial nerves II through XII grossly intact. PSYCH: Appropriate affect. Alert and oriented to person, place and time. SKIN: Well perfused. Good skin turgor. ASSESSMENT: 1. Ileus versus partial small bowel obstruction 2. Leukocytosis 3. Severe protein calorie malnutrition 4. History of esophageal dysmotility 5. Gastroparesis PLAN: -Continue clear liquid diet -Unable to add Reglan or erythromycin for gastroparesis due to its interaction with patient's other medications -Continue TPN for nutrition support -Continue supportive care -Continue antiemetics -Okay for discharge from surgical standpoint Physician Emergency Communications Operator note has been reviewed by physician. Signing provider agrees with the documented findings, assessment, and plan of care. Objective - Vital Signs Vital signs: Vital Signs Temp 98 F 12/04/21 07:39 Pulse 100 12/04/21 07:39 Resp 18 12/04/21 07:39 BP 162/92 12/04/21 07:39 Pulse Ox 97 12/04/21 07:39 FiO2 Intake & Output 12/03/21 12/04/21 12/04/21 18:59 06:59 18:59 Intake Total 927.5 Output Total 1 Balance -1 927.5 Intake: Intake, IV Titration 927.5 Amount Sodium Phosphate 6 mmol 927.5 Sodium Chloride 4Meq/ml Vial 28 meq Sodium Acetate 36 meq Magnesium Sulfate gm 0.5 gm Calcium Gluconate 1 gm Mvi, Adult No.4 with Vit K 10 ml Trace (Conc-1Ml/Dose) 1 ml In Amino Acids 5 %/ Dextrose 20 % 1,000 ml @ 50 mls/hr IV .[id number] [facility] Rx#:[id number] Output: Urine 1 Other: # Voids 6 # Bowel Movements 1 3 - Labs CBC & Chem 7: 12/03/21 05:42 12/04/21 06:20 Labs: Abnormal Lab Results - Last 24 Hours (Table) 12/04/21 Range/Units 06:20 BUN 49.7 H (9.0-27.0) mg/dL Est GFR (CKD-EPI)AfAm 46.4 L (60.0-200.0) Est GFR (CKD-EPI)NonAf 40.0 L (60.0-200.0) BUN/Creatinine Ratio 37.94 H (12.00-20.00) Ratio Microbiology - Last 24 Hours (Table) 12/01/21 10:44 Blood Culture - Preliminary Blood No Growth after 48 hours 12/01/21 10:44 Blood Culture - Preliminary Blood No Growth after 48 hours
== END 2021-12-04 12:55 | DRG 177 ==
LOC: EC 12:46 → 4SSUR 15:20
PROVIDERS: ADMIT Internal Medicine; ATTEND Internal Medicine
PROC: 3E0436Z Introduction of Nutritional Substance into Central Vein, Percutaneous Approach (ICD-10-PCS; principal; 2021-11-17)
DX: J85.0 Gangrene and necrosis of lung (principal); E43 Unspecified severe protein-calorie malnutrition; J18.8 Other pneumonia, unspecified organism; J69.0 Pneumonitis due to inhalation of food and vomit; K56.609 Unspecified intestinal obstruction, unspecified as to partial versus complete obstruction; N17.9 Acute kidney failure, unspecified; J44.0 Chronic obstructive pulmonary disease with (acute) lower respiratory infection; J44.1 Chronic obstructive pulmonary disease with (acute) exacerbation; N18.4 Chronic kidney disease, stage 4 (severe); Z68.1 Body mass index [BMI] 19.9 or less, adult; F11.20 Opioid dependence, uncomplicated; N10 Acute pyelonephritis; A31.0 Pulmonary mycobacterial infection; E03.9 Hypothyroidism, unspecified; F32.A Depression, unspecified; I10 Essential (primary) hypertension; D63.1 Anemia in chronic kidney disease; R62.7 Adult failure to thrive; E86.0 Dehydration; F41.0 Panic disorder [episodic paroxysmal anxiety]; M19.90 Unspecified osteoarthritis, unspecified site; G43.909 Migraine, unspecified, not intractable, without status migrainosus; G89.4 Chronic pain syndrome; M48.02 Spinal stenosis, cervical region; M48.00 Spinal stenosis, site unspecified; K22.4 Dyskinesia of esophagus; E87.5 Hyperkalemia; N05.8 Unspecified nephritic syndrome with other morphologic changes; R00.0 Tachycardia, unspecified; E16.2 Hypoglycemia, unspecified; K56.41 Fecal impaction; K31.84 Gastroparesis; T36.5X5A Adverse effect of aminoglycosides, initial encounter; Z96.642 Presence of left artificial hip joint; Z20.822 Contact with and (suspected) exposure to COVID-19; Z79.899 Other long term (current) drug therapy; Z86.73 Personal history of transient ischemic attack (TIA), and cerebral infarction without residual deficits; Z79.51 Long term (current) use of inhaled steroids; Z79.82 Long term (current) use of aspirin; Z79.890 Hormone replacement therapy; Z91.048 Other nonmedicinal substance allergy status; Z87.11 Personal history of peptic ulcer disease; Z86.16 Personal history of COVID-19; Z87.01 Personal history of pneumonia (recurrent); Z87.19 Personal history of other diseases of the digestive system; Z86.19 Personal history of other infectious and parasitic diseases; Z90.710 Acquired absence of both cervix and uterus; Z98.890 Other specified postprocedural states; Z87.81 Personal history of (healed) traumatic fracture; Z90.3 Acquired absence of stomach [part of]; Z88.8 Allergy status to other drugs, medicaments and biological substances; Z88.5 Allergy status to narcotic agent; Z82.49 Family history of ischemic heart disease and other diseases of the circulatory system; Z80.51 Family history of malignant neoplasm of kidney; Z80.52 Family history of malignant neoplasm of bladder; Z82.5 Family history of asthma and other chronic lower respiratory diseases; Z80.41 Family history of malignant neoplasm of ovary
CPT/HCPCS: 36415; 71045; 71046; 71250; 72192; 74019; 74176; 76700; 80048; 80053; 80150; 81001; 82330; 82570; 83605; 83735; 83880; 84100; 84145; 84300; 84478; 84484; 84540; 85025; 85610; 85730; 86140; 87040; 87502; 87635; 93005; 94640; 96361; 96365; 99285